=== PATIENT | female | born 1970 | race Caucasian/White ===

== ENCOUNTER 2016-06-07 11:59 | Emergency (ER) | payer MEDICARE, OTHER ==
[~2016-06-07] VITALS: Ht 160 cm; Wt 72.6 kg
[~2016-06-07 11:59] MED LIST: ABCT PO; AC325T PO; ACHD5005 PO; ACHYD1T PO; AGM875T PO; ALBU2.5V52 INH; ALBU8.5H2 IH; ALBUTERAL INHALER; ALPR.5T; ALPR1T PO; ALPR1TAB7 PO; AMIT25TA9 PO; AMIT75TA2; AMOX500C2 PO; AMPI250C11 PO; AMPI500C9 PO; AMT10T PO; ATEN-155 PO; ATEN25TA PO; ATEN50TA PO; AUGMENTIN; AZIT-21 PO; BSP10T PO; BUTA-234 PO; CEFD300C PO; CEFD300C3 PO; CEFU250T PO; CEFU500T5 PO; CEPH-38 PO; CEPH500C PO; CEPH500T PO; CIPR500T4 PO; CLCX200C PO; CLOT15CR6 TOP; CLOT45CR46 TOP; CODE-54 PO; CPR500T PO; CYCL10TA9 PO; CYCL5TAB11 PO; DIVA-20 PO; DOUNEB; DOXY100C2 PO; DOXY100C42 PO; DULO60CA6 PO; DUONEB INH; DVL500TEC PO; DXCC100C PO; ESTR1TAB; ESTR1TAB66; ESZO3TAB30 PO; Elmiron PO; FAMO20TA73 PO; FLC150T PO; FLEXER; FLEXERIL; FLUC150T PO; FLUC200T45 PO; FLUR30CA13 PO; FLUV100T3 PO; FURO20TA4 PO; Flexeril; GABA300C PO; GABA600T2 PO; GABA800T PO; GABA800T2 PO; GBPN300C PO; GUAI400T11 PO; GUAN1TAB21 PO; HYDR-2856 PO; HYDR-2997 PO; HYDR-32; HYDR-3714; HYDR-3720 PO; HYDR-3816 PO; HYDR-757 PO; HYDR1TAB PO; HYDR1TAB8 OP; HYOS0.1216 PO; IBP600T1 PO; IBUP-15 PO; IBUP800T26 PO; LASIX; LASIX PO; LEVE500T6 PO; LEVO500T69; LEVO500T69 PO; LORA-794 PO; LOVA40TA2 PO; LURA40TA PO; MELO-195 PO; METH1TAB; METH1TAB PO; METH4TAB PO; METO50TA7; METR500T PO; MIRA50TA PO; NF-ESOM40C; NF-ESOM40C PO; NF-ROP5T PO; NITR-65 PO; NITR100C3 PO; NORT25CA PO; NYST1000 PO; ONDA-42 SL; ONDA4TAB8 PO; ONDA8TAB13 PO; ORPH100T PO; OXC5T PO; OXYC-12 PO; OXYC-471 PO; PHEN200T16 PO; PHEN200T27; PHEN200T27 PO; PRC25SU PR; PRCD5U PO; PRD20T PO; PRD50T PO; PRED10TA PO; PRED20TA PO; PRM25T PO; PRM50SU PR; PROM25SU10 PR; PROM25TA14 PO; PROP40TA5 PO; QUET100T PO; QUET200T28 PO; QUET50TA21 PO; ROPI3TAB; ROPI5TAB PO; RT-ALBUINH IH; SCOP1PAT TD; SERT50TA9 PO; SULF1TAB35 PO; SULF1TAB38 PO; TAMS0.4C9 PO; TEMA30CA6 PO; TES; TMSL.4C PO; TRAM50TA2 PO; TRAZ150T42; TRAZ150T42 PO; TRAZADONE 150MG; TRZ100T PO; VENL150C PO; VENL75CA PO; WATER PILL; ZLP10T; ZLP10T PO; ZOLP12.5 PO; ZOLP5TAB6 PO; [UNRECOGNIZED DRUG - OTHER]; [UNRECOGNIZED DRUG - OTHER] PO; [UNRECOGNIZED DRUG - OTHER] PO; [UNRECOGNIZED DRUG - REMARK]; [UNRECOGNIZED DRUG - REMARK]; flexeril PO; prilosec otc PO
--- OUTSIDE RECORDS SUMMARY | 2016-06-07 12:05 | XMS REPORT | Continuity of Care Document ---
Author Author [facility] Organization [facility] Address Unknown Phone Unavailable Care Team Providers Care Business Development Officer Name Role Phone Areli Sanchez PCP [phone] Source Comments Some departments are not documenting in the electronic medical record. If you do not see the information that you expected, contact Release of Information in the Health Information Management department at [phone] for further assistance in locating additional records.[facility] Active Allergies and Adverse Reactions Allergen Noted Date Severity Reactions Comments Levaquin 12/09/2010 UNKNOWN Sulfa (Sulfonamide 12/09/2010 UNKNOWN Antibiotics) Current Medications Prescription Sig. Disp. Refills Start End Date Status Date trazodone (DESYREL) 50 mg Take 50 mg by mouth at Active PO tablet bedtime daily. ropinirole (REQUIP) 0.25 Take 0.25 mg by mouth Active mg PO tablet three times daily. gabapentin (NEURONTIN) Take 100 mg by mouth Active 100 mg PO capsule three times daily. CYCLOBENZAPRINE HCL Take by mouth. Active (FLEXERIL PO) albuterol (VENTOLIN HFA, Inhale 2 Puffs by mouth 8.5 g 0 12/10/19 Active PROAIR HFA) 90 every 6 hours as needed 11 mcg/Actuation IN inhaler for Wheezing. Active Problems Not on file Social History Tobacco Use Types Packs/Day Years Used Date Never Smoker Alcohol Use Drinks/Week oz/Week Comments No Last Filed Vital Signs Vital Sign Reading Time Taken Blood Pressure 131/92 12/09/2010 3:58 PM CDT Pulse 131 12/09/2010 11:42 AM CDT Temperature 36.7 C (98.1 F) 12/09/2010 11:42 AM CDT Respiratory Rate - - Height - - Weight - - Body Mass Index - - Oxygen Saturation 92% 12/09/2010 3:58 PM CDT Plan of Care Health Maintenance Due Date Last Done Comments Physical (Comprehensive) 1976 Exam Pertussis Vaccine 1980 Tetanus Vaccine 1986 Cervical Cancer Screening 1990 Breast Cancer Screening 2009 Influenza Vaccine 01/31/2016 Results from Last 3 Months Not on file
[2016-06-07 12:36] LABS: BILIRUBIN,URINE NEGATIVE (NEGATIVE); KETONES,URINE NEGATIVE (NEGATIVE); LEUKOCYTE ESTERASE ,URINE 1+ (NEGATIVE); NITRITE,URINE NEGATIVE (NEGATIVE); PH,URINE 7 (5-9); PROTEIN,URINE NEGATIVE (NEGATIVE); UROBILINOGEN,URINE NORMAL (NORMAL)
--- NOTE | 2016-06-07 12:46 | ED GU-Female ---
General Chief Complaint: -Female Stated Complaint: UTI/BLADDER PAIN Nursing Triage Note: AMB TO ROOM C/O UTI SYMPTOMS FOR LAST 2 WEEKS. HAS BEEN ON ANTIBIOTIC NOT ANY BETTER TO SEE DR HOOK ON THURSDAY. Nursing Sepsis Screen: No Definite Risk Source: patient Exam Limitations: no limitations History of Present Illness Time seen by provider: 12:46 Initial Comments 46-year-old female patient presents to the emergency department with complaints of suprapubic abdominal pain for approximately 2 weeks. Patient states she was on Keflex followed by Bactrim without improvement in symptoms. Patient is scheduled to see Dr. Hook on Thursday for recheck. Timing/Duration: other (2 wks) Severity/Quality: aching Location: suprapubic Radiation: none Activities at Onset: none Prior Genitourinary Problems: similar symptoms Modifying Factors: Worsens With Palpation, Worsens With Urinating Allergies and Home Medications Allergies Coded Allergies: Nitrofurantoin Macrocrystal (Unverified Allergy, Unknown, 09/25/13) Sulfa (Sulfonamide Antibiotics) (Unverified Allergy, Unknown, 09/25/13) hydrocodone (Verified Allergy, Unknown, itching, 10/26/14) ketorolac tromethamine (Verified Allergy, Unknown, 05/04/11) levofloxacin (Unverified Allergy, Unknown, 09/25/13) GIVES HER THRUSH nitrofurantoin (Verified Allergy, Unknown, 10/26/10) MAKES HER STOMACH HURT ondansetron (Verified Allergy, Unknown, 10/13/15) cephalexin (Unverified Adverse Reaction, Mild, NAUSEA, 11/07/14) Home Medications #20 10 BID Prescribed by: ROBI MAGAÑA on 01/03/16 1302 Albuterol Sulfate 2.5 Mg/3 Ml Nebu #20 2.5 MG INH Q4H Prescribed by: ANGEL DOBSON on 09/15/14 1923 Albuterol Sulfate 1 Puff Puff 1 PUFF IH Q4H PRN PRN WHEEZING (Reported) MDI Alprazolam 1 Mg Tablet 2 MG PO HS (Reported) take 2 (1mg) tabs Amitriptyline Hcl 10 Mg Tab 10 MG PO PRN PRN PRN INCONTINENCE (Reported) Ampicillin Trihydrate 500 Mg Capsule #30 500 MG PO TID FOR INFECTION Prescribed by: ZOFIA MORA on 02/09/15 1014 Cephalexin 500 Mg Capsule #21 500 MG PO TID Prescribed by: MAYRA LEE on 06/07/16 1401 Ciprofloxacin HCl 500 Mg Tablet #13 500 MG PO BID Prescribed by: ZABRINA WOLF on 12/07/15 0045 Doxycycline Monohydrate 100 Mg Capsule #20 100 MG PO BID Prescribed by: ZOFIA MORA on 09/12/152002 Gabapentin 800 Mg Tablet 1,200 MG PO TID (Reported) TAKES TO PREVENT SEIZURES Methylprednisolone 4 Mg Tab.ds.pk #1 4 MG PO UD Prescribed by: ZOFIA MORA on 02/09/15 1014 Ondansetron 4 Mg Tab.rapdis #10 4 MG PO Q4H Prescribed by: ZOFIA MORA on 02/09/15 1014 Orphenadrine Citrate 100 Mg Tablet.er #14 100 MG PO BID FOR MUSCLE SPASMS Prescribed by: ZOFIA MORA on 02/09/15 1014 Orphenadrine Citrate 100 Mg Tablet.er #10 100 MG PO BID Prescribed by: ZOFIA MORA on 09/12/152002 Oxycodone HCl/Acetaminophen 1 Each Tablet #10 1 EACH PO Q6H PRN PRN PAIN Prescribed by: LAURA FINCH on 04/09/15 1801 Phenazopyridine HCl 200 Mg Tablet #30 1 TAB PO Q6H PRN PRN PAIN Prescribed by: MAYRA LEE on 06/07/16 1401 Promethazine HCl 25 Mg Tablet #10 25 MG PO Q6H PRN PRN NAUSEA/VOMITING Prescribed by: LAURA FINCH on 10/22/15 1511 Promethazine HCl 25 Mg Tablet #14 25 MG PO Q8H PRN PRN NAUSEA/VOMITING Prescribed by: ZABRINA WOLF on 12/07/15 0039 Promethazine HCl 25 Mg Tablet #10 25 MG PO Q6H PRN PRN NAUSEA/VOMITING Prescribed by: MAYRA LEE on 06/07/16 1401 Quetiapine Fumarate 50 Mg Tablet 150 MG PO HS (Reported) Tramadol HCl 50 Mg Tablet #20 50 MG PO 4 times a day Prescribed by: ROBI MAGAÑA on 01/03/16 1302 Trazodone Hcl 100 Mg Tablet 150 MG PO HS (Reported) Constitutional: No chills, No dizziness, No fever, No malaise, No weakness Respiratory: no symptoms reported Cardiovascular: no symptoms reported Gastrointestinal: see HPI abdominal pain (suprapubic)No constipation, No diarrhea, No jaundice, No melena, nauseaNo vomiting Genitourinary: see HPI dysuriadenies frequency, denies flank pain, denies hematuria, pain (suprapubic abdominal pain) Musculoskeletal: No back pain Skin: no symptoms reported Psychiatric/Neurological: No Symptoms Reported All Other Systemes Reviewed Negative Unless Noted: Yes (Negative excepted noted.) Past Plonhom-Bzeaiq-Mxluqd Hx Patient Social History Recent Foreign Travel: No Contact w/Someone Who Travel: No Recent Infectious Disease Expo: No Recent Hopitalizations: No Immunizations Up To Date Date of Pneumonia Vaccine: Mar 01, 2013 Date of Influenza Vaccine: Feb 16, 2014 Seasonal Allergies Seasonal Allergies: No Surgeries HX Surgeries: Yes Surgeries: Appendectomy, Gallbladder, Hysterectomy, Tubal Ligation Respiratory Hx Respiratory Disorders: Yes Respiratory Disorders: Asthma Cardiovascular Hx Cardiac Disorders: No Cardiac Disorders: Hypertension Neurological Hx Neurological Disorders: No Neurological Disorders: Headaches /Migraines, Seizure Disorder Reproductive System Hx Reproductive Disorders: No Sexually Transmitted Disease: No HIV/AIDS: No 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 Problems, Ovarian Cyst 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 Genitourinary Hx Genitourinary Disorders: No Genitourinary Disorders: Bladder Infection, Kidney Stones, Renal Failure, UTI- Chronic Gastrointestinal Hx Gastrointestinal Disorders: No Gastrointestinal Disorders: Gastroesophageal Reflux, Pancreatitis, Chronic Diarrhea, Hiatal Hernia Musculoskeletal Hx Musculoskeletal Disorders: No Musculoskeletal Disorders: Fibromyalgia, Chronic Back Pain Endocrine Hx Endocrine Disorders: No HEENT HX ENT Disorders: No Cancer Hx Cancer: No Cancer: Vaginal Psychosocial Hx Psychiatric Problems: No Behavioral Health Disorders: Anxiety, Depression Integumentary HX Skin/Integumentary Disorder: No Blood Transfusions Hx Blood Disorders: No Adverse Reaction to a Blood Tr: No Reviewed Nursing Assessment Reviewed/Agree w Nursing PMH: Yes Family Medical History Significant Family History: No Pertinent Family Hx Family Medial History: Dementia 19 FATHER Family history: Cardiovascular disease 19 FATHER Family history: Diabetes mellitus G8 SISTER Family history: Hypertension 19 FATHER 19 MOTHER History of - respiratory disease 19 MOTHER Seizure disorder G8 SISTER No Family History of: Abdominal aortic aneurysm [place]'s disease Alcoholism Aphasia Cancer Cancer of colon Cataract Chest pain Congenital heart disease Congestive heart failure Cystic fibrosis Family history: Osteoporosis Family history: Thyroid disorder Headache Hearing loss Heart disease Hereditary disease History of - anemia History of - disorder History of drug abuse Human immunodeficiency virus (HIV) seropositivity Hypercholesterolemia Infertile Kidney disease Malignant neoplasm of lung Myocardial infarction Parkinson's disease Prostate cancer Psychotic disorder Stroke Tuberculosis Visual impairment Physical Exam Vital Signs Vital Sign - Last 12Hours 06/07/16 12:33 Temp 98.7 Pulse 96 Resp 18 B/P 112/78 Pulse Ox 98 O2 Delivery Room Air Capillary Refill : Less Than 3 Seconds General Appearance: WD/WN no apparent distress HEENT: PERRL/EOMI pharynx normal Neck: supple normal inspection Cardiovascular: regular rate, rhythm no murmur Respiratory: lungs clear normal breath sounds no respiratory distress Gastrointestinal: normal bowel sounds soft no organomegalyNo distended, guarding (mild suprapubic guarding)No rebound, tenderness (suprapubic) Back: normal inspection no CVA tenderness Extremities: no pedal edema no calf tenderness normal capillary refill Neurologic/Psychiatric: alert normal mood/affect oriented x 3 Skin: normal color warm/dry Progress/Results/Core Measures Results/Orders Lab Results Laboratory Tests Test 06/07/16 12:32 06/07/16 13:20 Range/Units Urine Bacteria NEGATIVE /HPF Urine Bilirubin NEGATIVE NEGATIVE Urine Casts NONE /LPF Urine Clarity SLIGHTLY CLOUDY Urine Color YELLOW Urine Crystals NONE /LPF Urine Culture Indicated NO Urine Glucose (UA) NEGATIVE NEGATIVE Urine Ketones NEGATIVE NEGATIVE Urine Leukocyte Esterase 1+ H NEGATIVE Urine Mucus NEGATIVE /LPF Urine Nitrite NEGATIVE NEGATIVE Urine Protein NEGATIVE NEGATIVE Urine RBC 10-25 H /HPF Urine RBC (Auto) 3+ H NEGATIVE Urine Specific [place] 1.010 L 1.016-1.022 Urine Squamous Epithelial Cells 2-5 /HPF Urine Urobilinogen NORMAL NORMAL MG/DL Urine WBC RARE /HPF Urine pH 7 5-9 Alanine Aminotransferase (ALT/SGPT) 38 0-55 U/L Albumin 4.1 3.2-4.5 G/DL Alkaline Phosphatase 77 40-136 U/L Anion Gap 13 5-14 MMOL/L Aspartate Amino Transf (AST/SGOT) 25 5-34 U/L BUN/Creatinine Ratio 11 Basophils # (Auto) 0.0 0.0-0.1 10^3/uL Basophils (%) (Auto) 0 0-10 % Blood Urea Nitrogen 9 7-18 MG/DL Calcium Level 9.1 8.5-10.1 MG/DL Carbon Dioxide Level 20 L 21-32 MMOL/L Chloride Level 106 98-107 MMOL/L Creatinine 0.82 0.60-1.30 MG/DL Eosinophils # (Auto) 0.1 0.0-0.3 10^3/uL Eosinophils (%) (Auto) 2 0-10 % Estimat Glomerular Filtration Rate > 60 Glucose Level 108 H 70-105 MG/DL Hematocrit 40 35-52 % Hemoglobin 13.4 11.5-16.0 G/DL Lymphocytes # (Auto) 1.4 1.0-4.0 X 10^3 Lymphocytes (%) (Auto) 31 12-44 % Mean Corpuscular Hemoglobin 28 25-34 PG Mean Corpuscular Hemoglobin Concent 33 32-36 G/DL Mean Corpuscular Volume 83 80-99 FL Mean Platelet Volume 10.8 H 7.4-10.4 FL Monocytes # (Auto) 0.4 0.0-1.0 X 10^3 Monocytes (%) (Auto) 8 0-12 % Neutrophils # (Auto) 2.7 1.8-7.8 X 10^3 Neutrophils (%) (Auto) 58 42-75 % Platelet Count 190 130-400 10^3/uL Potassium Level 3.7 3.6-5.0 MMOL/L Red Blood Count 4.85 4.35-5.85 10^6/uL Red Cell Distribution Width 12.6 10.0-14.5 % Sodium Level 139 135-145 MMOL/L Total Bilirubin 0.3 0.1-1.0 MG/DL Total Protein 6.7 6.4-8.2 G/DL White Blood Count 4.7 4.3-11.0 10^3/uL My Orders Orders-MAYRA LEE Ua Culture If Indicated (06/07/16 12:30) Cbc With Automated Diff (06/07/16 12:55) Comprehensive Metabolic Panel (06/07/16 12:55) Ct Abd/Pelvis Wo(Kidney Stone) (06/07/16 12:55) Abdomen/Kub 1view (06/07/16 12:55) Tramadol Tablet (Ultram Tablet) (06/07/16 13:00) Promethazine Tablet (Phenergan Tablet) (06/07/16 13:00) Phenazopyridine Tablet (Pyridium Tablet) (06/07/16 13:00) Oxycodone/Apap 5/325mg Tablet (Percocet (06/07/16 14:19) Medications Given in ED Current Medications Medications Dose Ordered Sig/Tk Route Start Time Stop Time Status Last Admin Dose Admin Phenazopyridine HCl 100 mg ONCE ONCE PO 06/07/16 13:00 06/07/16 13:01 DC 06/07/16 13:13 100 MG Promethazine HCl 25 mg ONCE ONCE PO 06/07/16 13:00 06/07/16 13:01 DC 06/07/16 13:20 25 MG Tramadol HCl 100 mg ONCE ONCE PO 06/07/16 13:00 06/07/16 13:01 DC 06/07/16 13:13 100 MG Vital Signs/I&O Vital Sign - Last 12Hours 06/07/16 12:33 Temp 98.7 Pulse 96 Resp 18 B/P 112/78 Pulse Ox 98 O2 Delivery Room Air Blood Pressure Mean: 89 Diagnostic Imaging Diagonstic Imaging: Xray Plain Films/CT/US/NM/MRI: abdomen Comments FINDINGS: Multiple densities over the renal silhouettes compatible with bilateral renal stones. Calcification demonstrated in the distal right ureter on accompanying renal colic CT imaging cannot be well appreciated on radiographs. Extensive surgical clips within the left hemipelvis. Mild severity fecal retention. IMPRESSION: 1. Bilateral renal stones are present. A demonstrated distal right ureteral stone on renal colic CT imaging cannot be well appreciated on this radiograph. Dictated on workstation # [id number] Reviewed: Reviewed by Me (radiology report reviewed by me) Diagonstic Imaging: CT Plain Films/CT/US/NM/MRI: abdomen, pelvis Comments FINDINGS: LOWER THORAX: Continued. Likely scarring about the left lower lobe posteriorly and laterally. No significant basilar infiltrate. EG junction unremarkable. Trace pericardial effusion versus pericardial thickening. LIVER: Unenhanced liver unremarkable without definitive focal lesion. GALLBLADDER: Surgically absent with clips in the fossa. No suggestion for bile duct dilatation. SPLEEN: Unremarkable. PANCREAS: Unremarkable. ADRENAL GLANDS: Unremarkable. KIDNEYS: There is presence of multiple bilateral renal stones. On the left, overall relatively stable in position and number. On the right, there has been redistribution and location of some of the stones. Additionally, the distal right ureteral stone has passed. No significant perinephric stranding. No obstructive uropathy. ABDOMINAL AORTA: Unremarkable, nonaneurysmal. GASTROINTESTINAL TRACT: Mild/moderate severity fecal retention. No evidence for obstruction or inflammation. No findings to suggest acute appendicitis. A few shotty subcentimeter mesenteric and right lower quadrant lymph nodes present. No abdominal ascites or free air. URINARY BLADDER: Unremarkable. No findings to suggest calcification. REPRODUCTIVE: Uterus absent. OSSEOUS STRUCTURES: No acute abnormality. IMPRESSION: 1. Bilateral nonobstructing renal stones. On the right, there has been change in the overall number and distribution and location of the stones. The previously noted distal right ureteral stone appears to have passed. No evidence for obstructive uropathy on followup. Reviewed: Reviewed by Me (radiology report reviewed by me) Departure Communication Progress Notes Laboratory and diagnostic findings discussed with the patient. Patient states she is not allergic to hydrocodone. She takes hydrocodone on a regular basis as prescribed by Dr. Fer Yan for chronic pain. Plan for discharge to home with follow-up on Thursday as previously scheduled with Dr. Hook. All return precautions were discussed with the patient. Patient voices understanding and agrees with the treatment plan. Impression Impression: Primary Impression: Kidney stones Disposition: , SELF-CARE Condition: Improved Departure-Patient Inst. Decision time for Depature: 14:12 Referrals: SABIHA MAST MD (PCP/Family) Primary Care Physician MARISA HOOK MD Patient Instructions: Kidney Stones (DC) Add. Discharge Instructions: All discharge instructions reviewed with patient and/or family. Voiced understanding. Medications as instructed. Continue hydrocodone at home. You may increase hydrocodone 5/325 mg to 1-2 tablets by mouth every 4-6 hours as needed for pain. Contact your pain specialist to notify him of increase in medication due to kidney stone. Strain all urines. Follow-up with Dr. Hook Thursday as previously scheduled. Return to the emergency department for worsened pain, inability urinate, fever, gross blood in the urine, or any other concerns. Scripts Cephalexin 500 Mg [id number] Mg PO TID #21 CAP Ref 0 Prov:MAYRA LEE 06/07/16 Promethazine HCl (Promethazine Tablet)25 Mg Phfnug10 Mg PO Q6H PRN NAUSEA/ VOMITING #10 TAB Ref 0 Prov:MAYRA LEE 06/07/16 Phenazopyridine HCl (Pyridium)200 Mg Tablet1 Tab PO Q6H PRN PAIN #30 TAB Ref 0 Prov:MAYRA LEE 06/07/16 MAYRA LEE Jun 07, 2016 12:46
[2016-06-07 12:47] LABS: WBC,URINE RARE /HPF
[2016-06-07] MEDS ORDERED: PROMETHAZINE 25 MG (PHENERGAN) TAB PO ONE (13:00)
[2016-06-07] MEDS ORDERED: PHENAZOPYRIDINE 100 MG (PYRIDIUM) TABLET PO ONE (13:00)
[2016-06-07 13:28] LABS: BASOPHILS % (AUTO) 0 % (0-10); EOSINOPHILS # (AUTO) 0.1 10^3/uL (0.0-0.3); EOSINOPHILS % (AUTO) 2 % (0-10); LYMPHOCYTES # (AUTO) 1.4 X 10^3 (1.0-4.0); LYMPHOCYTES % (AUTO) 31 % (12-44); MEAN CORPUSCULAR HEMOGLOBIN 28 PG (25-34); MEAN CORPUSCULAR HGB CONC 33 G/DL (32-36); MEAN CORPUSCULAR VOLUME 83 FL (80-99); MEAN PLATELET VOLUME 10.8 FL (7.4-10.4); MONOCYTES # (AUTO) 0.4 X 10^3 (0.0-1.0); MONOCYTES % (AUTO) 8 % (0-12); NEUTROPHILS # (AUTO) 2.7 X 10^3 (1.8-7.8); NEUTROPHILS % (AUTO) 58 % (42-75); PLATELET COUNT 190 10^3/uL (130-400); RED BLOOD COUNT 4.85 10^6/uL (4.35-5.85); RED CELL DISTRIBUTION WIDTH 12.6 % (10.0-14.5); WHITE BLOOD COUNT 4.7 10^3/uL (4.3-11.0)
[2016-06-07 13:48] LABS: ALANINE AMINOTRANSFERASE 38 U/L (0-55); ALBUMIN 4.1 G/DL (3.2-4.5); ANION GAP 13 MMOL/L (5-14); ASPARTATE AMINO TRANSFERASE 25 U/L (5-34); BILIRUBIN,TOTAL 0.3 MG/DL (0.1-1.0); BLOOD UREA NITROGEN 9 MG/DL (7-18); BUN/CREATININE RATIO 11; CALCIUM 9.1 MG/DL (8.5-10.1); CARBON DIOXIDE 20 MMOL/L (21-32); CHLORIDE 106 MMOL/L (98-107); CREATININE SERUM 0.82 MG/DL (0.60-1.30); GFR ESTIMATED > 60; GLUCOSE 108 MG/DL (70-105); POTASSIUM 3.7 MMOL/L (3.6-5.0); SODIUM 139 MMOL/L (135-145); TOTAL PROTEIN 6.7 G/DL (6.4-8.2)
--- NOTE | 2016-06-07 13:54 | Diagnostic Imaging Report ---
INDICATION: Bladder pain. TECHNIQUE: Single supine view abdomen 1:54 p.m. CORRELATION STUDY: None FINDINGS: Multiple densities over the renal silhouettes compatible with bilateral renal stones. The previously demonstrated calcifications in the distal right ureter on prior renal colic CT imaging of 12/06/2015. Not currently demonstrated. Extensive surgical clips within the left hemipelvis. Mild severity fecal retention. IMPRESSION: 1. Bilateral renal stones are present. Dictated by: Dictated on workstation # [id number]
--- NOTE | 2016-06-07 14:00 | Diagnostic Imaging Report ---
PROCEDURE: CT urinary tract, rule out kidney stone. TECHNIQUE: Multiple contiguous axial images were obtained through the abdomen and pelvis without the use of intravenous contrast. INDICATION: Bladder pain with hematuria. CORRELATION STUDY: 12/06/2015 FINDINGS: LOWER THORAX: Continued. Likely scarring about the left lower lobe posteriorly and laterally. No significant basilar infiltrate. EG junction unremarkable. Trace pericardial effusion versus pericardial thickening. LIVER: Unenhanced liver unremarkable without definitive focal lesion. GALLBLADDER: Surgically absent with clips in the fossa. No suggestion for bile duct dilatation. SPLEEN: Unremarkable. PANCREAS: Unremarkable. ADRENAL GLANDS: Unremarkable. KIDNEYS: There is presence of multiple bilateral renal stones. On the left, overall relatively stable in position and number. On the right, there has been redistribution and location of some of the stones. Additionally, the distal right ureteral stone has passed. No significant perinephric stranding. No obstructive uropathy. ABDOMINAL AORTA: Unremarkable, nonaneurysmal. GASTROINTESTINAL TRACT: Mild/moderate severity fecal retention. No evidence for obstruction or inflammation. No findings to suggest acute appendicitis. A few shotty subcentimeter mesenteric and right lower quadrant lymph nodes present. No abdominal ascites or free air. URINARY BLADDER: Unremarkable. No findings to suggest calcification. REPRODUCTIVE: Uterus absent. OSSEOUS STRUCTURES: No acute abnormality. IMPRESSION: 1. Bilateral nonobstructing renal stones. On the right, there has been change in the overall number and distribution and location of the stones. The previously noted distal right ureteral stone appears to have passed. No evidence for obstructive uropathy on followup. Dictated by: Dictated on workstation # [id number]
[2016-06-07] MEDS ORDERED: PROM25TA14 PO (14:01)
[2016-06-07] MEDS ORDERED: PHEN-640 PO (14:01)
[2016-06-07] MEDS ORDERED: CEPH500C PO (14:01)
[2016-06-07] MEDS ORDERED: oxyCODONE/APAP 5/325MG (PERCOCET 5) TABLET PO STA (14:19)
[2016-06-07 14:25] VITALS: BP 143/93
== END 2016-06-07 14:25 | disposition home or self-care (01) ==
LOC: EDUNIT# 11:59 → ER 12:01
DX: N20.0 Calculus of kidney (principal); I10 Essential (primary) hypertension; Z79.899 Other long term (current) drug therapy
CPT/HCPCS: 36415; 74000; 74176; 80053; 81000; 85025

== ENCOUNTER 2016-06-10 09:26 | Outpatient (CLI) | payer MEDICARE ==
[~2016-06-10] VITALS: Ht 156.2 cm; Wt 72.6 kg
[~2016-06-10 09:26] MED LIST changes: +PHEN-640 PO
--- OUTSIDE RECORDS SUMMARY | 2016-06-10 09:30 | XMS REPORT | Continuity of Care Document ---
Author Author [facility] Organization [facility] Address Unknown Phone Unavailable Care Team Providers Care Restaurant General Manager Name Role Phone Areli Sanchez PCP [phone] Source Comments Some departments are not documenting in the electronic medical record. If you do not see the information that you expected, contact Release of Information in the Health Information Management department at [phone] for further assistance in locating additional records.[facility] Active Allergies and Adverse Reactions Allergen Noted [...]
[2016-06-10] MEDS ORDERED: QUET200T57 PO (09:56)
[2016-06-10] MEDS ORDERED: TRAZ150T72 PO (09:56)
[2016-06-11] MEDS ORDERED: HYDR-3812 PO (06:59)
[2016-06-11] MEDS ORDERED: NITR-65 PO (08:06)
== END 2016-06-10 11:57 ==
LOC: PREOP 09:26
PROVIDERS: ATTEND Urology
DX: Z01.818 Encounter for other preprocedural examination (principal); N30.10 Interstitial cystitis (chronic) without hematuria

== ENCOUNTER 2016-06-11 05:57 | Day surgery (SDC) | payer MEDICARE, OTHER ==
[~2016-06-11] VITALS: Ht 156.2 cm; Wt 72.6 kg
[~2016-06-11 05:57] MED LIST changes: +QUET200T57 PO; +TRAZ150T72 PO
--- OUTSIDE RECORDS SUMMARY | 2016-06-11 06:03 | XMS REPORT | Continuity of Care Document ---
Author Author [facility] Organization [facility] Address Unknown Phone Unavailable Care Team Providers Care Cupola Melter Helper Name Role Phone Areli Sanchez PCP [phone] Source Comments Some departments are not documenting in the electronic medical record. If you do not see the information that you expected, contact Release of Information in the Health Information Management department at [phone] for further assistance in locating additional records.[facility] Active Allergies and Adverse Reactions Allergen Noted [...]
--- OUTSIDE RECORDS SUMMARY | 2016-06-11 06:04 | XMS REPORT | Continuity of Care Document ---
Author Author [facility] Organization [facility] Address Unknown Phone Unavailable Care Team Providers Care Spudder Name Role Phone Areli Sanchez PCP [phone] Source Comments Some departments are not documenting in the electronic medical record. If you do not see the information that you expected, contact Release of Information in the Health Information Management department at [phone] for further assistance in locating additional records.[facility] Active Allergies and Adverse Reactions Allergen Noted [...]
[2016-06-11] MEDS ORDERED: NORMAL SALINE (BAXTER MINI) 50 ML IV ONE (06:06)
[2016-06-11] MEDS ORDERED: cefTRIAXone 1 GM (ROCEPHIN) VIAL ONE (06:06)
[2016-06-11 06:25] VITALS: BP 147/91
[2016-06-11] MEDS: LACTATED RINGERS 1,000 ML IV PRN ×2 (06:25→07:49)
[2016-06-11] MEDS ORDERED: RT-ALBUTEROL SULF 2.5 MG/3 ML PRE-MIX VIAL INH ONE (06:45)
[2016-06-11] MEDS ORDERED: FAMOTIDINE 20MG/2ML IV (PEPCID) IV ONE (06:45)
[2016-06-11] MEDS ORDERED: SCOPOLAMINE 1.5 MG (TRANSDERM-SCOP) PATCH TOP ONE (06:45)
[2016-06-11] MEDS ORDERED: LACTATED RINGERS 1,000 ML IV ONE ×2 (06:54→07:42)
[2016-06-11] MEDS ORDERED: ONDANSETRON 4 MG/2 ML (SDV) Z0FRAN ONE (06:54)
[2016-06-11] MEDS ORDERED: fentaNYL INJECTION 100 MCG/2 ML AMP ONE (06:54)
[2016-06-11] MEDS ORDERED: LIDOCAINE PF 2% 10 ML (XYLOCAINE) AMP ONE (06:54)
[2016-06-11] MEDS ORDERED: proPOfol 200 MG/20 ML (DIPRIVAN) VIAL IV ONE (06:54)
[2016-06-11] MEDS ORDERED: ROCURONIUM 50 MG/5 ML (ZEMURON) VIAL IV ONE (06:54)
[2016-06-11] MEDS ORDERED: LIDOCAINE JELLY 2% (XYLOCAINE) 5 ML TUBE ONE (06:54)
[2016-06-11] MEDS ORDERED: MIDAZOLAM 2 MG/2 ML (VERSED) VIAL ONE (06:54)
[2016-06-11] MEDS ORDERED: HYDR-3812 PO (06:59)
[2016-06-11] MEDS ORDERED: cefTRIAXone 1 GM/NS 50 ML IVPB IV ONE ×2 (07:00)
--- NOTE | 2016-06-11 07:06 | Progress Note-Pre Operative ---
Pre-Operative Progress Note H&P Reviewed The H&P was reviewed, patient examined and no changes noted. Date H&P Reviewed: Jun 11, 2016 Time H&P Reviewed: 07:06 Pre-Operative Diagnosis: Interstitial cystitis and DUS MARISA HOOK MD Jun 11, 2016 7:06 am
--- NOTE | 2016-06-11 07:07 | Progress Note-Post Operative ---
Post-Operative Progess Note Pre-Operative Diagnosis Interstitial cystitis and DUS Post-Operative Diagnosis same Post-Op Procedure Note Date of Procedure: Jun 11, 2016 Name of Procedure: cysto, UD, and hydrodistention bladder Anesthesia Type general MARISA HOOK MD Jun 11, 2016 7:07 am
--- NOTE | 2016-06-11 07:09 | Discharge Inst-Urology ---
Discharge Inst-Urology Discharge Medications New, Converted, or Re-newed RX: RX on Chart Patient Instructions/Follow Up Plan Please make appointment to been seen in office in 4 weeks. Increase oral fluids for 48 hours and then as needed. Diet and Activity as tolerated. If questions or concerns contact your physician Or seek help at emergency department. MARISA HOOK MD Jun 11, 2016 7:09 am
[2016-06-11] MEDS ORDERED: SEVOFLURANE (ULTANE) 15 ML INHAL SOLN ONE (07:30)
[2016-06-11] MEDS ORDERED: MEPERIDINE (DEMEROL) INJ 50 MG/ML IVP PRN (08:00)
[2016-06-11] MEDS ORDERED: NITR-65 PO (08:06)
[2016-06-11] MEDS ORDERED: MEPERIDINE (DEMEROL) INJ 50 MG/ML ONE (08:17)
--- NOTE | 2016-06-11 08:55 | OPERATIVE REPORT ---
PROCEDURE PHYSICIAN: MARISA HOOK DATE OF PROCEDURE: 06/11/2016 PREOPERATIVE DIAGNOSES: 1. Interstitial cystitis. 2. Distal urethral stenosis. POSTOPERATIVE DIAGNOSES: 1. Interstitial cystitis. 2. Distal urethral stenosis. OPERATION PERFORMED: 1. Cystoscopy. 2. Urethral dilatation. 3. Hydrodistention of the bladder, SURGEON: Dr. Hook. ANESTHESIA: General. COMPLICATIONS: None. PROCEDURE: Under satisfactory general anesthesia, the patient in lithotomy position, the genitalia were prepped and draped in usual sterile fashion. Urethra dilated to number 32 [place]. Postvoid residual of 30 mL. There was a mild cystorectocele and no vaginitis. Cystoscopy was performed with both lenses and was essentially completely normal. No clear evidence of interstitial cystitis, carcinoma in situ, bladder tumor, stones or foreign body. Ureteric orifices normal in shape, site and configuration with clear efflux. I went ahead and distended the bladder to 500 mL for several minutes and then emptied it. Reexamined the bladder, there was no bleeding and no cracking. The patient tolerated the procedure and anesthesia well and was sent to recovery room in stable condition. We will see how that helps her; otherwise, we will put her on some medicine. The plan was fully explained to her preoperatively and postoperatively to her . Job ID: [id number] Dictated Date: 06/11/2016 08:04:44 Short Goods Drier Date: 06/11/2016 08:51:56 / savanah
[2016-06-11 09:05] VITALS: BP 125/83
[2016-06-11] MEDS ORDERED: HYDROcodone/APAP 5 MG/325 MG (LORTAB) TAB PO ONE (09:15)
[2016-06-11 09:35] VITALS: BP 128/83
== END 2016-06-11 09:50 | disposition home or self-care (01) ==
LOC: SDC 05:57
PROVIDERS: ATTEND Urology
DX: N30.10 Interstitial cystitis (chronic) without hematuria (principal); N35.9 Urethral stricture, unspecified; Z11.2 Encounter for screening for other bacterial diseases
CPT/HCPCS: 87081; 94640; 94760

== ENCOUNTER 2016-07-14 12:57 | Outpatient (RCR) | payer MEDICARE, OTHER ==
--- OUTSIDE RECORDS SUMMARY | 2016-06-26 13:48 | XMS REPORT | Continuity of Care Document ---
Author Author [facility] Organization [facility] Address Unknown Phone Unavailable Care Team Providers Care Operations Administrative Assistant Name Role Phone Areli Sanchez PCP [phone] Source Comments Some departments are not documenting in the electronic medical record. If you do not see the information that you expected, contact Release of Information in the Health Information Management department at [phone] for further assistance in locating additional records.[facility] [...]
[~2016-07-14 12:57] MED LIST changes: +HYDR-3812 PO
== END 2016-08-06 15:46 | disposition home or self-care (01) ==
PROVIDERS: ATTEND Physician Assistant
DX: M51.24 Other intervertebral disc displacement, thoracic region (principal)

== ENCOUNTER 2017-02-23 12:56 | Emergency (ER) | payer MEDICARE ==
[~2017-02-23] VITALS: Ht 154.9 cm; Wt 68.0 kg
--- OUTSIDE RECORDS SUMMARY | 2017-02-23 13:04 | XMS REPORT ---
Author Author ITZ JUNIOR [employer] Address Unknown Phone Unavailable Care Team Providers Care Arts And Crafts Teacher Name Role Phone ITZ JUNIOR CP Unavailable Allergies No Known Allergies Problems Problem Type Condition Code Onset Dates Condition Status Problem Disturbance of skin sensation 782.0 Active Problem Posttraumatic stress disorder 309.81 Active Problem Need for prophylactic vaccination and inoculation, Influenza V04.81 Active Problem FRANCIS (generalized anxiety disorder) F41.1 Active Problem Thoracic disc herniation 722.11 Active Problem Major depressive disorder in partial remission F32.4 Active Problem Major depressive disorder, recurrent episode, moderate 296.32 Active Problem Generalized anxiety disorder 300.02 Active Problem Other convulsions 780.39 Active Problem Carpal tunnel syndrome 354.0 Active Medications Medication Code System Code Instructions Start Date End Date Status Dosage Trazodone HCl [facility] [address]-23 150 MG Orally Once a bedtime for sleep October 13, 2014 1 tablet Quetiapine Fumarate [facility] [address]-08 200 MG Orally Once a day qHS sleep November 03, 2014 1 tablet Results No Known Results Summary Purpose eClinicalWorks Submission
--- OUTSIDE RECORDS SUMMARY | 2017-02-23 13:04 | XMS REPORT ---
Author Author ITZ JUNIOR Organization [facility] Address [address] [place] [address] Care Team Providers Care Terminal Make Up Operator Name Role Phone ITZ JUNIOR Unavailable PROBLEMS Type Condition ICD9-CM Code [id number] Code Onset Dates Condition Status SNOMED Code Problem Major depressive disorder in partial remission F32.4 Active 54093581 Problem FRANCIS (generalized anxiety disorder) F41.1 Active 23042331 Problem Constipation, unspecified constipation type K59.00 Active 85343812 Problem Slow transit constipation K59.01 Active 39148453 Problem Conversion disorder (or hysterical neurosis, 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 Eating while asleep. lg Non Drug Allergy Jun, Active SOCIAL HISTORY No smoking Hx information available PLAN OF CARE Activity Details Follow Up 4 Months Reason: VITAL SIGNS Height 62 in 2016-06-17 Weight 158.1 lbs 2016-06-17 Heart Rate 118 bpm 2016-06-17 Respiratory Rate 20 2016-06-17 BMI 28.91 kg/m2 2016-06-17 Blood pressure systolic 109 mmHg 2016-06-17 Blood pressure diastolic 78 mmHg 2016-06-17 MEDICATIONS Medication Instructions Dosage Frequency Start Date End Date Duration Status Quetiapine Fumarate 200 MG TAKE 1 TABLET ONE TIME DAILY AT BEDTIME FOR SLEEP Active Bactrim 400-80 MG Orally Once a day 2 tablets 24h Active Alprazolam 1MG Orally 2 times a day as needed for anxiety 1 tablet Active Trazodone HCl 150 MG TAKE 1 TABLET ONE TIME AT BEDTIME FOR SLEEP Active Pyridium 200 MG Orally Three times a day 1 tablet after meals 8h Active Gabapentin 800MG Orally Three times a day 1.5 tablet 8h 90 days Active Omeprazole 20 mg take 1 capsule (20 mg) by oral route once daily before a meal Apr, Active ProAir HFA 90 mcg/actuation 2 puffs by Inhalation route 4 times per dayPRN Apr, Active Hydrocodone-Acetaminophen 10-325 MG Orally every 6 hrs 1 tablet as needed 6h Active RESULTS No Results PROCEDURES Procedure Date Ordered Related Diagnosis Body Site Office Visit, Est Pt., Level 3 Jun 17, 2016 IMMUNIZATIONS No Known Immunizations
--- OUTSIDE RECORDS SUMMARY | 2017-02-23 13:04 | XMS REPORT ---
Author Author ASHLEE VELARDE Organization [facility] Address [address] [place] [address] Care Team Providers Care Forensic Engineer Name Role Phone REHANA VELARDENETTE Unavailable PROBLEMS Type Condition ICD9-CM Code [id number] Code Onset Dates Condition Status SNOMED Code Problem FRANCIS (generalized anxiety disorder) F41.1 Active 64763952 Problem Slow transit constipation K59.01 Active 06810530 Problem Paroxysmal tachycardia I47.9 Active 23894624 Problem Thoracic disc herniation M51.24 Active 271167817 Problem Major depressive disorder in partial remission F32.4 Active 44885884 Problem Seizure disorder G40.909 Active 055421421 Problem Conversion disorder (or hysterical neurosis, 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 Eating while asleep. lg Non Drug Allergy Apr, Active SOCIAL HISTORY No smoking Hx information available PLAN OF CARE Activity Details Follow Up 2 Weeks Reason:uti VITAL SIGNS Height 62 in 2016-04-17 Weight 155 lbs 2016-04-17 Temperature 97.9 degrees Fahrenheit 2016-04-17 Heart Rate 78 bpm 2016-04-17 Respiratory Rate 20 2016-04-17 BMI 28.35 kg/m2 2016-04-17 Blood pressure systolic 130 mmHg 2016-04-17 Blood pressure diastolic 82 mmHg 2016-04-17 MEDICATIONS Medication Instructions Dosage Frequency Start Date End Date Duration Status Gabapentin 800 MG Orally Three times a day take 1.5 tablet 8h Jul, Active Omeprazole 20 mg take 1 capsule (20 mg) by oral route once daily before a meal Apr, Active ProAir HFA 90 mcg/actuation 2 puffs by Inhalation route 4 times per dayPRN Apr, Active Hydrocodone-Acetaminophen 10-325 MG Orally every 6 hrs 1 tablet as needed 6h Active Zofran ODT 4 mg Orally q4 h prn nausea 1 Mar, Active Cipro 500 MG Orally Twice a day 1 tablet 12h Apr, Apr, 10 day(s) Active Quetiapine Fumarate 200 mg TAKE 1 TABLET ONE TIME DAILY AT BEDTIME FOR SLEEP Active Alprazolam 1MG Orally 2 times a day as needed for anxiety 1 tablet Active Trazodone HCl 150 MG TAKE 1 TABLET ONE TIME AT BEDTIME FOR SLEEP Active RESULTS Name Result Date Reference Range UA W/CULTURE IF INDICATED (IN HOUSE) 2016-04-17 Lot # [id number] Exp date 07/2016 Clarity cloudy Color dark yellow Odor yes GLU negative YOLI negative KET negative SG 1.025 BLO 3+ pH 6.0 Protein 1+ URO 0.2 NIT negative ROSENDA 1+ Lot # Exp date CULTURE, URINE 2016-04-17 Urine Culture, Routine Final report Result 1 PROCEDURES Procedure Date Ordered Related Diagnosis Body Site URINALYSIS, AUTO, W/O SCOPE Apr 17, 2016 Office Visit, Est Pt., Level 3 Apr 17, 2016 LAB NOT BILLED BY [facility] Apr 17, 2016 IMMUNIZATIONS No Known Immunizations
--- OUTSIDE RECORDS SUMMARY | 2017-02-23 13:04 | XMS REPORT | Clinical Summary ---
Author Author [facility] Organization [facility] Address Unknown Phone Unavailable Care Team Providers Care General Warehouse Worker Name Role Phone PCP Unavailable Source Comments Some departments are not documenting in the electronic medical record. If you do not see the information that you expected, contact Release of Information in the Health Information Management department at [phone] for further assistance in locating additional records.[facility] Allergies Active Allergy Reactions Severity Noted Date Comments Levofloxacin UNKNOWN 12/09/2010 Sulfa (Sulfonamide UNKNOWN 12/09/2010 Antibiotics) Current Medications Prescription Sig. Disp. Refills [...] Smoker Alcohol Use Drinks/Week oz/Week Comments No Sex Assigned at Date Recorded Not on file Last Filed Vital Signs Vital Sign Reading Time Taken Blood Pressure 131/92 12/09/2010 3:58 PM CDT Pulse 131 12/09/2010 11:42 AM CDT Temperature 36.7 C (98.1 F) 12/09/2010 11:42 AM CDT Respiratory Rate - - Oxygen Saturation 92% 12/09/2010 3:58 PM CDT Inhaled Oxygen - - Concentration Weight - - Height - - Body Mass Index - - Plan of Treatment Health Maintenance Due Date Last Done Comments PHYSICAL (COMPREHENSIVE) 1976 EXAM PERTUSSIS VACCINE 1980 TETANUS VACCINE 1986 CERVICAL CANCER SCREENING 1999 BREAST CANCER SCREENING 2009 INFLUENZA VACCINE 03/01/2017 Results Not on filefrom Last 3 Months
--- OUTSIDE RECORDS SUMMARY | 2017-02-23 13:09 | XMS REPORT ---
Author ITZ Jain [employer] Address Unknown Phone Unavailable Care Team Providers Care Toys And Games Hand Finisher Name Role Phone ITZ JUNIOR CP Unavailable Allergies No Known Allergies Problems Problem Type Condition ICD-9 Code Onset Dates Condition Status Problem Disturbance of skin sensation 782.0 Active Problem Unspecified disorder of menstruation and other abnormal bleeding from female genital tract 626.9 Active Problem Need for prophylactic vaccination and inoculation, Influenza V04.81 Active Problem PPV23 (PNEUMOVAX) DX V03.82 Active Problem Posttraumatic stress disorder 309.81 Active Problem Acute bronchitis 466.0 Active Problem Achilles bursitis or tendinitis 726.71 Active Problem Acute pancreatitis 577.0 Active Problem Allergic rhinitis, cause unspecified 477.9 Active Problem Unspecified sleep apnea 780.57 Active Problem Dysuria 788.1 Active Problem Tension headache 307.81 Active Problem Urinary tract infection, site not specified 599.0 Active Problem Routine gynecological examination V72.31 Active Problem Lump or mass in breast 611.72 Active Problem Mastodynia 611.71 Active Problem Other convulsions 780.39 Active Problem Memory loss 780.93 Active Problem 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 Problem Major depressive disorder, recurrent episode, moderate 296.32 Active Problem Unspecified symptom associated with female genital organs 625.9 Active Problem Generalized anxiety disorder 300.02 Active Problem Unspecified breast screening V76.10 Active Problem Special screening for malignant neoplasms, vagina V76.47 Active Problem Unspecified fall E888.9 Active Problem Special screening examination, human papillomavirus [HPV] V73.81 Active Problem Nausea alone 787.02 Active Problem Other specified symptom associated with female genital organs 625.8 Active Problem Headache 784.0 Active Problem Unspecified abnormal mammogram 793.80 Active Problem Other abnormal Papanicolaou smear of vagina and vaginal HPV 795.19 Active Problem Encounter for long-term (current) use of other medications V58.69 Active Problem Carpal tunnel syndrome 354.0 Active Problem Acute sinusitis, unspecified 461.9 Active Problem Unspecified backache 724.5 Active Medications No Known Medications Results No Known Results Summary Purpose eClinicalWorks Submission
--- OUTSIDE RECORDS SUMMARY | 2017-02-23 13:09 | XMS REPORT ---
Author ITZ Jain [employer] Address Unknown Phone Unavailable Care Team Providers Care Split Leather Mosser Name Role Phone ITZ JUNIOR CP Unavailable Allergies, Adverse Reactions, Alerts Substance Reaction Event Type Macrobid hives Drug Allergy Levaquin hives Drug Allergy Tramadol Info Not Available Drug Allergy Ambien 10 Mg Tablet Sleep Walking and Sleep Driving. Eating while asleep. lg Non Drug Allergy Problems Problem Type Condition Code Onset Dates Condition Status Problem Disturbance of skin sensation 782.0 Active Problem Posttraumatic stress disorder 309.81 Active Problem Need for prophylactic vaccination and inoculation, Influenza V04.81 Active Assessment FRANCIS (generalized anxiety disorder) F41.1 Active Assessment Major depressive disorder in partial remission F32.4 Active Problem FRANCIS (generalized anxiety disorder) F41.1 Active Problem Thoracic disc herniation 722.11 Active Problem Major depressive disorder in partial remission F32.4 Active Problem Major depressive disorder, recurrent episode, moderate 296.32 Active Problem Generalized anxiety disorder 300.02 Active Problem Other convulsions 780.39 Active Problem Carpal tunnel syndrome 354.0 Active Medications Medication Code System Code Instructions Start Date End Date Status Dosage Alprazolam [facility] 41121799899 1MG Orally 2 times a day as needed for anxiety 1 tablet Zofran ODT [facility] [address]-42 4 mg Mar 24, 2014 take 1 tablets by Oral route every 4 hours PRN Nausea or Vomiting Promethazine HCl [facility] [address]-27 25 MG Orally every 12 hrs 1 tablet as needed Hydrocodone-Acetaminophen [facility] [address]-11 10-325 MG Orally every 6 hrs 1 tablet as needed Omeprazole [facility] [address]-04 20 mg Apr 18, 2013 take 1 capsule ( 20 mg) by oral route once daily before a meal ProAir HFA [facility] [address]-66 90 mcg/actuation Apr 26, 2012 2 puffs by Inhalation route 4 times per dayPRN Quetiapine Fumarate [facility] [address]-65 200 mg Orally Once a day qHS sleep November 03, 2014 1 tablet Trazodone HCl [facility] [address]-49 150 MG Orally Once a bedtime for sleep October 13, 2014 1 tablet Gabapentin [facility] 35322220168 800MG Orally Three times a day 1.5 tablet Gabapentin [facility] [address]-58 800 MG Orally Three times a day August 15, 2014 take 1.5 tablet Procedures Procedure Coding System Code Date Office Visit, Est Pt., Level 3 CPT-4 02539 December 18, 2015 Vital Signs Date/Time: December 18, 2015 Cardiac Monitoring Heart Rate 112 bpm Weight 162.3 lbs Height 62 in Blood Pressure Diastolic 90 mmHg Blood Pressure Systolic 115 mmHg Results No Known Results Summary Purpose eClinicalWorks Submission
--- OUTSIDE RECORDS SUMMARY | 2017-02-23 13:09 | XMS REPORT ---
Author Author SABIHA MAST Organization [employer] Address Unknown Phone Unavailable Care Team Providers Care State Archivist Name Role Phone SABIHA MAST CP Unavailable Allergies No Known Allergies Problems Problem Type Condition Code Onset Dates Condition Status Problem Thoracic disc herniation M51.24 Active Problem Major depressive disorder in partial remission F32.4 Active Problem Seizure disorder G40.909 Active Problem FRANCIS (generalized anxiety disorder) F41.1 Active Assessment Abnormal mammogram R92.8 Active Medications No Known Medications Results No Known Results Summary Purpose eClinicalWorks Submission
--- OUTSIDE RECORDS SUMMARY | 2017-02-23 13:09 | XMS REPORT ---
Author Author SABIHA MAST [facility] eClinicalWorks Address Unknown Phone Unavailable Care Team Providers Care Stitcher Feeder Name Role Phone SABIHA MAST CP Unavailable Allergies No Known Allergies Problems Problem Type Condition Code Onset Dates Condition Status Problem Disturbance of skin sensation 782.0 Active Problem Posttraumatic stress disorder 309.81 Active Problem Need for prophylactic vaccination and inoculation, Influenza V04.81 Active Assessment Dorsalgia, unspecified M54.9 Active Problem FRANCIS (generalized anxiety disorder) F41.1 Active Problem Thoracic disc herniation 722.11 Active Problem Major depressive disorder in partial remission F32.4 Active Problem Major depressive disorder, recurrent episode, moderate 296.32 Active Problem Generalized anxiety disorder 300.02 Active Problem Other convulsions 780.39 Active Problem Carpal tunnel syndrome 354.0 Active Medications Medication Code System Code Instructions Start Date End Date Status Dosage Gabapentin [facility] 98979926009 800MG Orally Three times a day 1.5 tablet Results No Known Results Summary Purpose eClinicalWorks Submission
--- OUTSIDE RECORDS SUMMARY | 2017-02-23 13:09 | XMS REPORT ---
Author Author SABIHA MAST Organization [employer] Address Unknown Phone Unavailable Care Team Providers Care Housing Coordinator Name Role Phone SABIHA MAST CP Unavailable Allergies No Known Allergies Problems Problem Type Condition Code Onset Dates Condition Status Problem Thoracic disc herniation M51.24 Active Problem Major depressive disorder in partial remission F32.4 Active Problem Seizure disorder G40.909 Active Problem FRANCIS (generalized anxiety disorder) F41.1 Active Medications No Known Medications Results No Known Results Summary Purpose eClinicalWorks Submission
--- OUTSIDE RECORDS SUMMARY | 2017-02-23 13:10 | XMS REPORT ---
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 Eating while asleep. lg Non Drug Allergy Apr, Active SOCIAL HISTORY No smoking Hx information available PLAN OF CARE VITAL SIGNS Height 62 in 2016-04-30 Weight 155.8 lbs 2016-04-30 Heart Rate 84 bpm 2016-04-30 Respiratory Rate 20 2016-04-30 BMI 28.49 kg/m2 2016-04-30 Blood pressure systolic 116 mmHg 2016-04-30 Blood pressure diastolic 70 mmHg 2016-04-30 MEDICATIONS Medication Instructions Dosage Frequency Start Date End Date Duration Status Gabapentin 800MG Orally Three times a day 1.5 tablet 8h 90 days Active Alprazolam 1MG Orally 2 times a day as needed for anxiety 1 tablet Active Hydrocodone-Acetaminophen 10-325 MG Orally every 6 hrs 1 tablet as needed 6h Active Acidophilus 100 MG Orally 2 times a day 1 capsule 12h Apr, May, 07 days Active Quetiapine Fumarate 200 mg TAKE 1 TABLET ONE TIME DAILY AT BEDTIME FOR SLEEP Active Gabapentin 800 MG Orally Three times a day take 1.5 tablet 8h 17 Jul, 2014 Active Promethazine HCl 25 MG Orally every 12 hrs 1 tablet as needed 12h 30 Apr, 2016 May, 05 days Active Trazodone HCl 150 MG TAKE 1 TABLET ONE TIME AT BEDTIME FOR SLEEP Active Omeprazole 20 mg take 1 capsule (20 mg) by oral route once daily before a meal Apr, Active ProAir HFA 90 mcg/actuation 2 puffs by Inhalation route 4 times per dayPRN Apr, Active RESULTS No Results PROCEDURES Procedure Date Ordered Related Diagnosis Body Site Office Visit, Est Pt., Level 3 Apr 30, 2016 IMMUNIZATIONS No Known Immunizations
--- OUTSIDE RECORDS SUMMARY | 2017-02-23 13:10 | XMS REPORT ---
Author ITZ Jain [facility] eClinicalWorks Address Unknown Phone Unavailable Care Team Providers Care Community Recreation Programmer Name Role Phone IZT JUNIOR CP Unavailable Allergies No Known Allergies Problems Problem Type Condition Code Onset Dates Condition Status Problem Major depressive disorder in partial remission F32.4 Active Problem FRANCIS (generalized anxiety disorder) F41.1 Active Problem Thoracic disc herniation M51.24 Active Medications Medication Code System Code Instructions Start Date End Date Status Dosage Alprazolam [facility] [id number] 1MG Orally 2 times a day as needed for anxiety 1 tablet Results No Known Results Summary Purpose eClinicalWorks Submission
--- OUTSIDE RECORDS SUMMARY | 2017-02-23 13:10 | XMS REPORT ---
Author Author ITZ JUNIOR [employer] Address Unknown Phone Unavailable Care Team Providers Care Scooter Mechanic Name Role Phone ITZ JUNIOR CP Unavailable [...] Date End Date Status Dosage Alprazolam [facility] 22002062359 1MG Orally 2 times a day as needed for anxiety 1 tablet Results No Known Results Summary Purpose eClinicalWorks Submission
--- OUTSIDE RECORDS SUMMARY | 2017-02-23 13:10 | XMS REPORT ---
Author ITZ Jain [employer] Address Unknown Phone Unavailable Care Team Providers Care Canopy Inspector Name Role Phone ITZ JUNIOR CP Unavailable [...] Instructions Start Date End Date Status Dosage Omeprazole [facility] [address]-88 20 mg Apr 18, 2013 take 1 capsule ( 20 mg) by oral route once daily before a meal Quetiapine Fumarate [facility] [address]-95 200 MG Orally Once a day qHS sleep November 03, 2014 1 tablet Gabapentin [facility] [address]-68 800 MG Orally Three times a day August 15, 2014 take 1.5 tablet Zofran ODT [facility] [address]-78 4 mg Mar 24, 2014 take 1 tablets by Oral route every 4 hours PRN Nausea or Vomiting ProAir HFA [facility] [address]-47 90 mcg/actuation Apr 26, 2012 2 puffs by Inhalation route 4 times per dayPRN Trazodone HCl [facility] [address]-43 150 MG Orally Once a bedtime for sleep October 13, 2014 1 tablet Alprazolam [facility] 33886536401 1MG Orally 2 times a day as needed for anxiety 1 tablet Hydrocodone-Acetaminophen [facility] [address]-95 5-325 MG Orally 3 times a day Feb 12, 2015 1 tablet as needed Procedures Procedure Coding System Code Date Office Visit, Est Pt., Level 4 CPT-4 45444 Jun 19, 2015 [facility] VISIT ESTABLISHED PATIENT CPT-4 G0467 Jun 19, 2015 Vital Signs Date/Time: Jun 19, 2015 Cardiac Monitoring Heart Rate 96 bpm Weight 158.4 lbs Height 62 in BMI 28.97 Index Blood Pressure Diastolic 72 mmHg Blood Pressure Systolic 90 mmHg Results No Known Results Summary Purpose eClinicalWorks Submission
--- OUTSIDE RECORDS SUMMARY | 2017-02-23 13:11 | XMS REPORT ---
Author ITZ Jain [employer] Address Unknown Phone Unavailable Care Team Providers Care Snath Handle Assembler Name Role Phone ITZ JUNIOR CP Unavailable [...] Active Problem Unspecified backache 724.5 Active Medications Medication Code System Code Instructions Start Date End Date Status Dosage Quetiapine Fumarate [facility] [address]-58 150 mg Orally Once a day qHS sleep November 03, 2014 1 tablet Results No Known Results Summary Purpose eClinicalWorks Submission
--- OUTSIDE RECORDS SUMMARY | 2017-02-23 13:12 | XMS REPORT ---
Author Author ITZ JUNIOR [employer] Address Unknown Phone Unavailable Care Team Providers Care Gravedigger Name Role Phone ITZ JUNIOR CP Unavailable Allergies No Known Allergies Problems Problem Type Condition Code Onset Dates Condition Status Problem Disturbance of skin sensation 782.0 Active Problem Other convulsions 780.39 Active Problem Carpal tunnel syndrome 354.0 Active Problem Thoracic disc herniation 722.11 Active Problem Posttraumatic stress disorder 309.81 Active Problem Need for prophylactic vaccination and inoculation, Influenza V04.81 Active Problem Major depressive disorder, recurrent episode, moderate 296.32 Active Problem Generalized anxiety disorder 300.02 Active Medications Medication Code System Code Instructions Start Date End Date Status Dosage Alprazolam [facility] 88042782523 1MG 2 times a day as needed for anxiety 1 tablet Results No Known Results Summary Purpose eClinicalWorks Submission
--- OUTSIDE RECORDS SUMMARY | 2017-02-23 13:12 | XMS REPORT ---
Author Author SABIHA MAST Organization [employer] Address Unknown Phone Unavailable Care Team Providers Care It Project Lead Name Role Phone SABIHA MAST CP Unavailable [...] Instructions Start Date End Date Status Dosage Hydrocodone-Acetaminophen [facility] [address]-86 5-325 MG Orally 3 times a day Feb 12, 2015 1 tablet as needed Results No Known Results Summary Purpose eClinicalWorks Submission
--- OUTSIDE RECORDS SUMMARY | 2017-02-23 13:13 | XMS REPORT ---
Author SABIHA Chapa Organization [employer] Address Unknown Phone Unavailable Care Team Providers Care Knot Tier Name Role Phone SABIHA MAST CP Unavailable Allergies No Known Allergies Problems Problem Type Condition Code Onset Dates Condition Status Problem Major depressive disorder in partial remission F32.4 Active Problem FRANCIS (generalized anxiety disorder) F41.1 Active Problem Thoracic disc herniation M51.24 Active Medications No Known Medications Results No Known Results Summary Purpose [employer]ClinicalWorks Submission
--- OUTSIDE RECORDS SUMMARY | 2017-02-23 13:13 | XMS REPORT ---
Author ITZ Jain [employer] Address Unknown Phone Unavailable Care Team Providers Care Dust Collector Treater Name Role Phone ITZ JUNIOR CP Unavailable [...] Date End Date Status Dosage Quetiapine Fumarate [facility] [address]-53 200 mg Orally Once a day qHS sleep November 03, 2014 1 tablet Results No Known Results Summary Purpose eClinicalWorks Submission
--- OUTSIDE RECORDS SUMMARY | 2017-02-23 13:13 | XMS REPORT ---
Author Author ITZ JUNIOR [employer] Address Unknown Phone Unavailable Care Team Providers Care Steamship Agent Name Role Phone ITZ JUNIOR CP Unavailable [...] Start Date End Date Status Dosage Alprazolam [facility] [id number] 1MG 2 times a day as needed for anxiety 1 tablet Results No Known Results Summary Purpose eClinicalWorks Submission
--- OUTSIDE RECORDS SUMMARY | 2017-02-23 13:13 | XMS REPORT ---
Author Author JAYME MAYNARD Organization [employer] Address Unknown Phone Unavailable Care Team Providers Care Butter Production Supervisor Name Role Phone JAYME MAYNARD CP Unavailable Allergies, Adverse Reactions, Alerts Substance [...] Active Problem Thoracic disc herniation M51.24 Active Assessment Other headache syndrome G44.89 Active Medications Medication Code System Code Instructions Start Date End Date Status Dosage ProAir HFA [facility] [address]-22 90 mcg/actuation Apr 26, 2012 2 puffs by Inhalation route 4 times per dayPRN Quetiapine Fumarate [facility] [address]-93 200 mg Orally Once a day qHS sleep November 03, 2014 1 tablet Trazodone HCl [facility] [address]-24 150 MG Orally Once a bedtime for sleep October 13, 2014 1 tablet Zofran [facility] [address]-62 4 MG Orally 2 times a day Jan 21, 2016 1 tablets Gabapentin [facility] [address]-51 800 MG Orally Three times a day August 15, 2014 take 1.5 tablet Omeprazole [facility] [address]-96 20 mg Apr 18, 2013 take 1 capsule ( 20 mg) by oral route once daily before a meal Alprazolam [facility] 88485430354 1MG Orally 2 times a day as needed for anxiety 1 tablet Procedures Procedure Coding System Code Date TORADOL (IM) 60 MG/2ML (UP TO 15 MG) CPT-4 J1885 Jan 21, 2016 THER/PROPH/DIAG INJ, SC/IM CPT-4 84463 Jan 21, 2016 Office Visit, Est Pt., Level 3 CPT-4 66106 Jan 21, 2016 PHENERGAN (IM) 12.5 MG (25 MG/ML) CPT-4 J2550 Jan 21, 2016 Vital Signs Date/Time: Jan 21, 2016 Cardiac Monitoring Heart Rate 112 bpm Weight 157.0 lbs Height 62 in BMI 28.71 Index Blood Pressure Diastolic 94 mmHg Blood Pressure Systolic 142 mmHg Results No Known Results Summary Purpose eClinicalWorks Submission
--- OUTSIDE RECORDS SUMMARY | 2017-02-23 13:13 | XMS REPORT ---
Author Author ITZ JUNIOR [employer] Address Unknown Phone Unavailable Care Team Providers Care Geological Technician Name Role Phone ITZ JUNIOR CP Unavailable [...] Start Date End Date Status Dosage Alprazolam [facility] [id number] 1MG 2 times a day as needed for anxiety 1 tablet Results No Known Results Summary Purpose eClinicalWorks Submission
--- OUTSIDE RECORDS SUMMARY | 2017-02-23 13:15 | XMS REPORT ---
Author Author SABIHA MAST Organization [employer] Address Unknown Phone Unavailable Care Team Providers Care Carbon Paper Machine Operator Name Role Phone SABIHA MAST CP Unavailable [...] Problem Generalized anxiety disorder 300.02 Active Medications No Known Medications Results No Known Results Summary Purpose eClinicalWorks Submission
--- OUTSIDE RECORDS SUMMARY | 2017-02-23 13:16 | XMS REPORT ---
Author SABIHA Chapa [facility] eClinicalWorks Address Unknown Phone Unavailable Care Team Providers Care Steffen House Supervisor Name Role Phone SABIHA MAST Unavailable Allergies, Adverse Reactions, Alerts Substance Reaction [...] F32.4 Active Problem Seizure disorder G40.909 Active Assessment Seizure disorder G40.909 Active Problem FRANCIS (generalized anxiety disorder) F41.1 Active Assessment Gastroenteritis K52.9 Active Medications Medication Code System Code Instructions Start Date End Date Status Dosage Quetiapine Fumarate [facility] [id number] 200 MG TAKE 1 TABLET ONE TIME DAILY AT BEDTIME FOR SLEEP Alprazolam [facility] 07803299181 1MG Orally 2 times a day as needed for anxiety 1 tablet Lomotil [facility] [address]-96 2.5-0.025 MG Orally Four times a day Mar 24, 2016 Mar 29, 2016 1 tablet as needed Zofran ODT [facility] [address]-92 4 mg Orally q4 h prn nausea Mar 24, 2014 1 Gabapentin [facility] [address]-15 800 MG Orally Three times a day August 15, 2014 take 1.5 tablet Zofran [facility] [address]-42 4 MG Orally 2 times a day Jan 21, 2016 1 tablets Omeprazole [facility] [address]-79 20 mg Apr 18, 2013 take 1 capsule ( 20 mg) by oral route once daily before a meal Trazodone HCl [facility] 06314269107 150 MG TAKE 1 TABLET ONE TIME AT BEDTIME FOR SLEEP ProAir HFA [facility] [address]-51 90 mcg/actuation Apr 26, 2012 2 puffs by Inhalation route 4 times per dayPRN Procedures Procedure Coding System Code Date Office Visit, Est Pt., Level 3 CPT-4 27291 Mar 24, 2016 MEASURE BLOOD OXYGEN LEVEL CPT-4 79752 Mar 24, 2016 Vital Signs Date/Time: Mar 24, 2016 Cardiac Monitoring Heart Rate 100 bpm Weight 159.3 lbs Height 62 in BMI 29.13 Index Oximetry 93 % Blood Pressure Diastolic 74 mmHg Blood Pressure Systolic 120 mmHg Results No Known Results Summary Purpose eClinicalWorks Submission
--- OUTSIDE RECORDS SUMMARY | 2017-02-23 13:17 | XMS REPORT ---
Author ITZ Jain [employer] Address Unknown Phone Unavailable Care Team Providers Care National Account Representative Name Role Phone ITZ JUNIOR CP Unavailable [...] Date End Date Status Dosage Quetiapine Fumarate [facility] [address]-30 200 MG Orally Once a day qHS sleep November 03, 2014 1 tablet Omeprazole [facility] [address]-90 20 mg Apr 18, 2013 take 1 capsule ( 20 mg) by oral route once daily before a meal Zofran ODT [facility] [address]-63 4 mg Mar 24, 2014 take 1 tablets by Oral route every 4 hours PRN Nausea or Vomiting Trazodone HCl [facility] [address]-80 150 MG Orally Once a bedtime for sleep October 13, 2014 1 tablet ProAir HFA [facility] [address]-69 90 mcg/actuation Apr 26, 2012 2 puffs by Inhalation route 4 times per dayPRN Gabapentin [facility] [address]-08 800 MG Orally Three times a day August 15, 2014 take 1.5 tablet Alprazolam [facility] 43529662153 1MG Orally 2 times a day as needed for anxiety 1 tablet Procedures Procedure Coding System Code Date No Charge CPT-4 27880 September 18, 2015 Office Visit, Est Pt., Level 3 CPT-4 59343 September 18, 2015 Vital Signs Date/Time: September 18, 2015 Cardiac Monitoring Heart Rate 104 bpm Weight 159.7 lbs Height 62 in BMI 29.21 Index Blood Pressure Diastolic 80 mmHg Blood Pressure Systolic 100 mmHg Results No Known Results Summary Purpose eClinicalWorks Submission
--- OUTSIDE RECORDS SUMMARY | 2017-02-23 13:17 | XMS REPORT ---
Author Author SABIHA MAST Organization [employer] Address Unknown Phone Unavailable Care Team Providers Care Residential Director Name Role Phone SABIHA MAST CP Unavailable [...] Start Date End Date Status Dosage Gabapentin [facility] [address]-57 800 MG Orally Three times a day August 15, 2014 take 1.5 tablet Results No Known Results Summary Purpose eClinicalWorks Submission
--- OUTSIDE RECORDS SUMMARY | 2017-02-23 13:17 | XMS REPORT ---
Author Author SABIHA MAST Organization [employer] Address Unknown Phone Unavailable Care Team Providers Care Perl Software Engineer Name Role Phone SABIHA MAST CP Unavailable [...]
--- OUTSIDE RECORDS SUMMARY | 2017-02-23 13:18 | XMS REPORT ---
Author Author ITZ JUNIOR [employer] Address Unknown Phone Unavailable Care Team Providers Care Campus Chaplain Name Role Phone ITZ JUNIOR CP Unavailable [...] Date End Date Status Dosage Trazodone HCl [facility] [address]-64 150 MG Orally Once a bedtime for sleep October 13, 2014 1 tablet Results No Known Results Summary Purpose eClinicalWorks Submission
--- OUTSIDE RECORDS SUMMARY | 2017-02-23 13:18 | XMS REPORT ---
Author Author SABIHA MAST Organization [employer] Address Unknown Phone Unavailable Care Team Providers Care Store Receiving Specialist Name Role Phone SABIHA MAST CP Unavailable [...]
--- OUTSIDE RECORDS SUMMARY | 2017-02-23 13:18 | XMS REPORT ---
Author Author MICKIE ROSS Organization [facility] Address [address] [place] [address] Care Team Providers Care Building Construction Contractor Name Role Phone MICKIE ROSS Unavailable PROBLEMS Type Condition ICD9-CM Code [id number] Code Onset Dates Condition Status SNOMED Code Problem FRANCIS (generalized anxiety disorder) F41.1 Active 13264103 Problem Slow transit constipation K59.01 Active 51094601 Problem Paroxysmal tachycardia I47.9 Active 56135056 Problem Thoracic disc herniation M51.24 Active 053387159 Problem Major depressive disorder in partial remission F32.4 Active 75965355 Problem Seizure disorder G40.909 Active 959939739 Problem Conversion disorder (or hysterical neurosis, 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 Eating while asleep. lg Non Drug Allergy May, Active SOCIAL HISTORY No smoking Hx information available PLAN OF CARE Activity Details Follow Up prn Reason: VITAL SIGNS Height 62 in 2016-05-27 Weight 158.4 lbs 2016-05-27 Temperature 97.8 degrees Fahrenheit 2016-05-27 Heart Rate 86 bpm 2016-05-27 Respiratory Rate 18 2016-05-27 BMI 28.97 kg/m2 2016-05-27 Blood pressure systolic 118 mmHg 2016-05-27 Blood pressure diastolic 72 mmHg 2016-05-27 MEDICATIONS Medication Instructions Dosage Frequency Start Date End Date Duration Status Gabapentin 800 MG Orally Three times a day take 1.5 tablet 8h Jul, Active Hydrocodone-Acetaminophen 10-325 MG Orally every 6 hrs 1 tablet as needed 6h Active ProAir HFA 90 mcg/actuation 2 puffs by Inhalation route 4 times per dayPRN Apr, Active Quetiapine Fumarate 200 mg TAKE 1 TABLET ONE TIME DAILY AT BEDTIME FOR SLEEP Active Omeprazole 20 mg take 1 capsule (20 mg) by oral route once daily before a meal Apr, Active Bactrim DS 800-160 MG Orally Twice a day 1 tablet 12h May, Jun, 5 days Active Gabapentin 800MG Orally Three times a day 1.5 tablet 8h 90 days Active Alprazolam 1MG Orally 2 times a day as needed for anxiety 1 tablet Active Trazodone HCl 150 MG TAKE 1 TABLET ONE TIME AT BEDTIME FOR SLEEP Active RESULTS Name Result Date Reference Range CULTURE, URINE 2016-05-27 Urine Culture, Routine Final report Result 1 No growth UA LONG DIP (IN HOUSE) 2016-05-27 Lot # [id number] Exp date 07-01-17 Clarity CLOUDY Color BROWN Odor NO GLU NEGATIVE YOLI NEGATIVE KET NEGATIVE SG >=1.030 BLO 3+ pH 6.0 Protein 2+ URO 0.2 NIT NEGATIVE ROSENDA NEGATIVE Lot # [id number] Exp date PROCEDURES Procedure Date Ordered Related Diagnosis Body Site URINALYSIS, AUTO, W/O SCOPE May 27, 2016 LAB NOT BILLED BY [facility] May 27, 2016 Office Visit, Est Pt., Level 3 May 27, 2016 IMMUNIZATIONS No Known Immunizations
--- OUTSIDE RECORDS SUMMARY | 2017-02-23 13:18 | XMS REPORT ---
Author Author ITZ JUNIOR [employer] Address Unknown Phone Unavailable Care Team Providers Care Brand Coordinator Name Role Phone ITZ JUNIOR CP Unavailable [...] Start Date End Date Status Dosage Alprazolam [facility] [id number] 1MG Orally 2 times a day as needed for anxiety 1 tablet Results No Known Results Summary Purpose eClinicalWorks Submission
--- OUTSIDE RECORDS SUMMARY | 2017-02-23 13:24 | XMS REPORT ---
Author ITZ Jain [employer] Address Unknown Phone Unavailable Care Team Providers Care Tip Cutter Name Role Phone ITZ JUNIOR CP Unavailable Allergies No Known Allergies Problems Problem Type Condition Code Onset Dates Condition Status Assessment PTSD (post-traumatic stress disorder) F43.10 Active Problem Disturbance of skin sensation 782.0 Active Assessment Major depressive disorder, recurrent episode, moderate F33.1 Active Assessment FRANCIS (generalized anxiety disorder) F41.1 Active Problem Other convulsions 780.39 Active Problem Carpal tunnel syndrome 354.0 Active Problem Thoracic disc herniation 722.11 Active Problem Posttraumatic stress disorder 309.81 Active Problem Need for prophylactic vaccination and inoculation, Influenza V04.81 Active Problem Major depressive disorder, recurrent episode, moderate 296.32 Active Problem Generalized anxiety disorder 300.02 Active Medications Medication Code System Code Instructions Start Date End Date Status Dosage Hydrocodone-Acetaminophen [facility] [address]-96 5-325 MG Orally 3 times a day Feb 12, 2015 1 tablet as needed Gabapentin [facility] [address]-79 800 MG Orally Three times a day August 15, 2014 take 1.5 tablet Quetiapine Fumarate [facility] [address]-38 200 MG Orally Once a day qHS sleep November 03, 2014 1 tablet ProAir HFA [facility] [address]-61 90 mcg/actuation Apr 26, 2012 2 puffs by Inhalation route 4 times per dayPRN Omeprazole [facility] [address]-57 20 mg Apr 18, 2013 take 1 capsule ( 20 mg) by oral route once daily before a meal Alprazolam [facility] 99966798619 1MG 2 times a day as needed for anxiety 1 tablet Trazodone HCl [facility] [address]-12 150 MG Orally Once a bedtime for sleep October 13, 2014 1 tablet Zofran ODT [facility] [address]-40 4 mg Mar 24, 2014 take 1 tablets by Oral route every 4 hours PRN Nausea or Vomiting Procedures Procedure Coding System Code Date Office Visit, Est Pt., Level 3 CPT-4 68109 Mar 20, 2015 [facility] VISIT ESTABLISHED PATIENT CPT-4 G0467 Mar 20, 2015 Vital Signs Date/Time: Mar 20, 2015 Cardiac Monitoring Heart Rate 72 bpm Weight 155.2 lbs Height 62 in BMI 28.38 Index Blood Pressure Diastolic 84 mmHg Blood Pressure Systolic 132 mmHg Results No Known Results Summary Purpose eClinicalWorks Submission
[2017-02-23] MEDS ORDERED: METO50TA2 PO (14:01)
[2017-02-23] MEDS ORDERED: ALPR2TAB2 PO (14:01)
[2017-02-23] MEDS ORDERED: RT-ALBUINH IH (14:01)
[2017-02-23] MEDS ORDERED: GABA600T2 PO (14:01)
[2017-02-23 14:25] LABS: BILIRUBIN,URINE NEGATIVE (NEGATIVE); KETONES,URINE NEGATIVE (NEGATIVE); LEUKOCYTE ESTERASE ,URINE 2+ (NEGATIVE); NITRITE,URINE POSITIVE (NEGATIVE); PH,URINE 5 (5-9); PROTEIN,URINE 3+ (NEGATIVE); UROBILINOGEN,URINE NORMAL (NORMAL)
--- NOTE | 2017-02-23 15:13 | ED General ---
General Chief Complaint: Lower Extremity Stated Complaint: RT LEG PAIN Nursing Triage Note: Pt reports R leg pain starting this morning upon waking. Pt reports pain starts near her hip and radiates down her leg. Nursing Sepsis Screen: No Definite Risk Source of Information: Patient Exam Limitations: No Limitations History of Present Illness Time Seen by Provider: 14:05 Initial Comments This 46-year-old woman presents to the emergency room with multiple complaints. Her primary complaint is that she woke this morning with right leg pain radiating from the lateral hip down toward the knee. It is waxing and waning. She denies any paresthesia with it. She does note having a history of disc disease. An MRI of the thoracic spine from 2014 Notes a disc bulge resulting in some stenosis at T10-11. She denies any injury or strain related to her pain. She secondarily complains of hematuria this morning. She reports this is not unusual for her as she has history of renal stones. She has not taken any medication for her pain yet. Finally she reports having some in her mid and upper abdominal pain with eating. Allergies and Home Medications Allergies Coded Allergies: Sulfa (Sulfonamide Antibiotics) (Unverified Allergy, Unknown, 09/25/13) hydrocodone (Verified Allergy, Unknown, itching, 10/26/14) ketorolac tromethamine (Verified Allergy, Unknown, 05/04/11) levofloxacin (Unverified Allergy, Unknown, 09/25/13) GIVES HER THRUSH ondansetron (Verified Allergy, Unknown, 10/13/15) tramadol (Unverified Allergy, Unknown, 06/11/16) Home Medications Albuterol Sulfate 6.7 Gm Hfa.aer.ad, Unknown Dose IH PRN PRN for SHORTNESS OF BREATH, (Reported) Alprazolam 2 Mg Tablet, 2 MG PO HS, (Reported) Cephalexin 500 Mg Capsule, 500 MG PO QID, #28 Prescribed by: ANGEL DOBSON on 02/23/17 1518 Gabapentin 600 Mg Tablet, 1,200 MG PO BID, (Reported) Hydrocodone/Acetaminophen 1 Each Tablet, 2 EACH PO Q4H PRN for PAIN, (Reported) Metoprolol Tartrate 50 Mg Tablet, 50 MG PO PRN, (Reported) Omeprazole 20 Mg Capsule.dr, 20 MG PO BID, #20 Prescribed by: ANGEL DOBSON on 02/23/17 1518 Prednisone 20 Mg Tab, 20 MG PO DAILY, #3 Prescribed by: ANGEL DOBSON on 02/23/17 1518 Quetiapine Fumarate 200 Mg Tablet, 200 MG PO HS, (Reported) Trazodone HCl 150 Mg Tablet, 150 MG PO HS, (Reported) Constitutional: no symptoms reported EENTM: no symptoms reported Respiratory: no symptoms reported Cardiovascular: no symptoms reported Gastrointestinal: see HPI Genitourinary: see HPI : No Musculoskeletal: see HPI Skin: no symptoms reported Psychiatric/Neurological: No Symptoms Reported Hematologic/Lymphatic: No Symptoms Reported Immunological/Allergic: no symptoms reported Past Gxjinzu-Izmucs-Wyxucj Hx Patient Social History Alcohol Use: Denies Use Recreational Drug Use: No Smoking Status: Never a Smoker Recent Foreign Travel: No Contact w/Someone Who Travel: No Recent Infectious Disease Expo: No Recent Hopitalizations: No Immunizations Up To Date Date of Pneumonia Vaccine: Mar 01, 2013 Date of Influenza Vaccine: Mar 01, 2016 Seasonal Allergies Seasonal Allergies: No Surgeries History of Surgeries: Yes (breast reduction, several cysto's with UD, lap santa) Surgeries: Appendectomy, Bladder Surgery ("Bladder stretching"), Gallbladder, Hysterectomy, Renal (Procedures for treatment of renal stones), Tubal Ligation Respiratory History of Respiratory Disorde: Yes Respiratory Disorders: Asthma, Sleep Apnea Currently Using CPAP: Yes (rarely uses) Cardiovascular History of Cardiac Disorders: Yes Cardiac Disorders: Hypertension, Irregular Heartbeat Neurological History of Neurological Disord: Yes Neurological Disorders: Headaches /Migraines, Seizure Disorder Reproductive System : No Hx Reproductive Disorders: No Sexually Transmitted Disease: No HIV/AIDS: No 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 Problems, Ovarian Cyst INSTRUCTOR TRAFFIC SAFETY History: Hysterectomy Genitourinary History of Genitourinary Disor: Yes Genitourinary Disorders: Bladder Infection, Kidney Stones, Renal Failure, UTI- Chronic Gastrointestinal History of Gastrointestinal Di: Yes Gastrointestinal Disorders: Gastroesophageal Reflux, Pancreatitis, Chronic Diarrhea, Hiatal Hernia Musculoskeletal History of Musculoskeletal Dis: Yes Musculoskeletal Disorders: Fibromyalgia, Chronic Back Pain Endocrine History of Endocrine Disorders: No HEENT History of HEENT Disorders: No Cancer History of Cancer: Yes Cancer: Vaginal Psychosocial History of Psychiatric Problem: No Behavioral Health Disorders: Anxiety, Depression Integumentary History of Skin or Integumenta: No Blood Transfusions History of Blood Disorders: No Adverse Reaction to a Blood Tr: No Family Medical History Significant Family History: No Pertinent Family Hx, Heart Disease Family Medial History: Dementia 19 FATHER Family history: Cardiovascular disease 19 FATHER Family history: Diabetes mellitus G8 SISTER Family history: Hypertension 19 FATHER 19 MOTHER History of - respiratory disease 19 MOTHER Seizure disorder G8 SISTER No Family History of: Abdominal aortic aneurysm Radiant's disease Alcoholism Aphasia Cancer Cancer of colon Cataract Chest pain Congenital heart disease Congestive heart failure Cystic fibrosis Family history: Osteoporosis Family history: Thyroid disorder Headache Hearing loss Heart disease Hereditary disease History of - anemia History of - disorder History of drug abuse Human immunodeficiency virus (HIV) seropositivity Hypercholesterolemia Infertile Kidney disease Malignant neoplasm of lung Myocardial infarction Parkinson's disease Prostate cancer Psychotic disorder Stroke Tuberculosis Visual impairment Physical Exam Vital Signs Vital Sign - Last 12Hours 02/23/17 13:51 Temp 97.0 Pulse 78 Resp 18 B/P (MAP) 120/93 Pulse Ox 96 O2 Delivery Room Air Capillary Refill : Less Than 3 Seconds General Appearance: No Apparent Distress, WD/WN HEENT: PERRL/EOMI, Normal ENT Inspection Neck: Normal Inspection Respiratory: Lungs Clear, Normal Breath Sounds, No Accessory Muscle Use, No Respiratory Distress Cardiovascular: Regular Rate, Rhythm, No Edema, No Murmur Gastrointestinal: Normal Bowel Sounds, Soft, Tenderness (Mild in the upper central abdomen) Back: Normal Inspection Extremity: Normal Inspection, No Pedal Edema, Other (Tenderness over the right lateral hip in the location of the trochanteric bursa. Tenderness over the right SI joint) Neurologic/Psychiatric: Alert, Oriented x3, No Motor/Sensory Deficits, Normal Mood/Affect, library technology instructor II-XII Norm as Tested Skin: Normal Color, Warm/Dry Progress/Results/Core Measures Results/Orders Lab Results Laboratory Tests Test 02/23/17 14:16 Range/Units Urine Color YELLOW Urine Clarity CLEAR Urine pH 5 5-9 Urine Specific [place] 1.020 1.016-1.022 Urine Protein 3+ H NEGATIVE Urine Glucose (UA) NEGATIVE NEGATIVE Urine Ketones NEGATIVE NEGATIVE Urine Nitrite POSITIVE H NEGATIVE Urine Bilirubin NEGATIVE NEGATIVE Urine Urobilinogen NORMAL NORMAL MG/DL Urine Leukocyte Esterase 2+ H NEGATIVE Urine RBC (Auto) 5+ H NEGATIVE Urine RBC TNTC H /HPF Urine WBC 10-25 H /HPF Urine Squamous Epithelial Cells NONE /HPF Urine Crystals NONE /LPF Urine Bacteria NEGATIVE /HPF Urine Casts NONE /LPF Urine Mucus NEGATIVE /LPF Urine Culture Indicated YES Micro Results Microbiology 02/23/17 Urine Culture - Preliminary, Resulted NO GROWTH My Orders Orders - ANGEL MATA MD Ua Culture If Indicated (02/23/17 14:14) Urine Culture (02/23/17 14:16) Oxycodone/Apap 5/325mg Tablet (Percocet (02/23/17 15:15) Vital Signs/I&O Blood Pressure Mean: 102 Progress Note : Progress Note Urinary tract infection was suspected based on UA. Antibiotics were prescribed. Patient's allergy profile limits medications that can be prescribed for pain. She was given one Percocet prior to discharge. See discharge instructions. Departure Impression Impression: Primary Impression: Urinary tract infection Qualified Codes: N39.0 - Urinary tract infection, site not specified; R31.9 - Hematuria, unspecified Additional Impressions: Hematuria Qualified Codes: R31.9 - Hematuria, unspecified Upper abdominal pain Sacroiliitis Right hip pain Disposition: HOME, SELF-CARE Condition: Improved Departure-Patient Inst. Decision time for Depature: 15:05 Referrals: SABIHA MAST MD (PCP/Family) Primary Care Physician Patient Instructions: Blood in the Urine (Hematuria) in Adults, Sacroiliac Joint Pain, Urinary Tract Infection, Adult (DC) Add. Discharge Instructions: Drink plenty of clear liquids. Please follow-up with your primary care doctor by phone in 48 hours to review urine cultures. Keep your appointment for next week. Return to the emergency room if symptoms worsen. Take an antacid such as omeprazole 20 mg or Pepcid (famotidine) 20 mg twice daily until you can discuss further with your doctor. You may take ibuprofen up to 600 mg every 6 hours as needed for your pain. Use prednisone as prescribed. Always take prednisone and ibuprofen with food or milk to avoid stomach irritation. All discharge instructions reviewed with patient and/or family. Voiced understanding. Scripts Prednisone (Prednisone) 20 Mg Tab 20 MG PO DAILY, #3 TAB Prov: ANGEL MATA MD 02/23/17 Omeprazole (Omeprazole) 20 Mg Capsule.dr 20 MG PO BID, #20 CAP Prov: ANGEL MATA MD 02/23/17 Cephalexin (Keflex) 500 Mg Capsule 500 MG PO QID, #28 CAP Prov: ANGEL MATA MD 02/23/17 Copy Copies To 1: SABIHA MAST MD, JOSHUA T MD Feb 23, 2017 15:13
[2017-02-23] MEDS ORDERED: oxyCODONE/APAP 5/325MG (PERCOCET 5) TABLET PO ONE (15:15)
[2017-02-23] MEDS ORDERED: CEPH-507 PO (15:18)
[2017-02-23] MEDS ORDERED: PRD20T PO (15:18)
[2017-02-23] MEDS ORDERED: OMEP20CA12 PO (15:18)
[2017-02-23 15:29] VITALS: BP 106/55
== END 2017-02-23 15:27 | disposition home or self-care (01) ==
LOC: EDUNIT# 12:56 → ER 12:59
DX: N39.0 Urinary tract infection, site not specified (principal); M46.1 Sacroiliitis, not elsewhere classified; R10.10 Upper abdominal pain, unspecified; F41.9 Anxiety disorder, unspecified; F32.9 Major depressive disorder, single episode, unspecified; K21.9 Gastro-esophageal reflux disease without esophagitis; J45.909 Unspecified asthma, uncomplicated; G47.30 Sleep apnea, unspecified; G40.909 Epilepsy, unspecified, not intractable, without status epilepticus; I10 Essential (primary) hypertension; G43.909 Migraine, unspecified, not intractable, without status migrainosus; Z85.44 Personal history of malignant neoplasm of other female genital organs; Z87.42 Personal history of other diseases of the female genital tract; Z87.442 Personal history of urinary calculi; Z82.49 Family history of ischemic heart disease and other diseases of the circulatory system; Z90.710 Acquired absence of both cervix and uterus; Z90.49 Acquired absence of other specified parts of digestive tract; Z98.51 Tubal ligation status
CPT/HCPCS: 81000; 87088; 99283

== ENCOUNTER → 2017-05-01 | Outpatient (CLI) | payer MEDICARE ==
[~2017-05-01] MED LIST changes: +ALPR2TAB2 PO; +CEPH-507 PO; +METO50TA2 PO; +OMEP20CA12 PO
[2017-05-01 11:21] LABS: BASOPHILS % (AUTO) 1 % (0-10); EOSINOPHILS # (AUTO) 0.2 10^3/uL (0.0-0.3); EOSINOPHILS % (AUTO) 3 % (0-10); LYMPHOCYTES # (AUTO) 2.3 X 10^3 (1.0-4.0); LYMPHOCYTES % (AUTO) 37 % (12-44); MEAN CORPUSCULAR HEMOGLOBIN 28 PG (25-34); MEAN CORPUSCULAR HGB CONC 33 G/DL (32-36); MEAN CORPUSCULAR VOLUME 85 FL (80-99); MEAN PLATELET VOLUME 10.8 FL (7.4-10.4); MONOCYTES # (AUTO) 0.6 X 10^3 (0.0-1.0); MONOCYTES % (AUTO) 10 % (0-12); NEUTROPHILS # (AUTO) 3.1 X 10^3 (1.8-7.8); NEUTROPHILS % (AUTO) 50 % (42-75); PLATELET COUNT 201 10^3/uL (130-400); RED BLOOD COUNT 4.86 10^6/uL (4.35-5.85); RED CELL DISTRIBUTION WIDTH 12.9 % (10.0-14.5); WHITE BLOOD COUNT 6.2 10^3/uL (4.3-11.0)
[2017-05-01 11:48] LABS: ALANINE AMINOTRANSFERASE 15 U/L (0-55); ALBUMIN 4.3 GM/DL (3.2-4.5); ANION GAP 9 MMOL/L (5-14); ASPARTATE AMINO TRANSFERASE 12 U/L (5-34); BILIRUBIN,TOTAL 0.4 MG/DL (0.1-1.0); BLOOD UREA NITROGEN 14 MG/DL (7-18); BUN/CREATININE RATIO 15; CALCIUM 9.9 MG/DL (8.5-10.1); CARBON DIOXIDE 29 MMOL/L (21-32); CHLORIDE 101 MMOL/L (98-107); CHOLESTEROL 222 MG/DL (< 200); CREATININE SERUM 0.92 MG/DL (0.60-1.30); DIRECT LDL 124 MG/DL (1-129); GFR ESTIMATED > 60; GLUCOSE 91 MG/DL (70-105); POTASSIUM 4.4 MMOL/L (3.6-5.0); SODIUM 139 MMOL/L (135-145); TOTAL PROTEIN 7.8 GM/DL (6.4-8.2); TRIGLYCERIDES 347 MG/DL (<150); VLDL CHOLESTEROL 69 MG/DL (5-40)
== END ==
LOC: LAB 10:55
PROVIDERS: ATTEND Internal Medicine Interventional Cardiology
DX: E78.5 Hyperlipidemia, unspecified (principal); I73.9 Peripheral vascular disease, unspecified; I10 Essential (primary) hypertension; R00.2 Palpitations; R06.02 Shortness of breath
CPT/HCPCS: 36415; 80053; 80061; 85025

== ENCOUNTER 2017-10-21 12:15 | Outpatient (CLI) | payer MEDICARE ==
[~2017-10-21] VITALS: Ht 154.9 cm; Wt 72.6 kg
[~2017-10-21 12:15] MED LIST changes: +HYDR-34 PO; -HYDR-3812 PO; -HYDR-3816 PO; +METO50TA15 PO; -METO50TA2 PO
[2017-10-21] MEDS ORDERED: ATOR10TA PO (12:20)
[2017-10-21] MEDS ORDERED: TRAZ300T3 PO (12:20)
[2017-10-21] MEDS ORDERED: QUET300T44 PO (12:20)
[2017-10-21] MEDS ORDERED: ALPR1TAB7 PO (12:20)
[2017-10-21] MEDS ORDERED: AMLO2.5T PO (12:20)
== END 2017-10-21 13:12 ==
LOC: PREOP 12:15
PROVIDERS: ATTEND Surgery
DX: Z01.818 Encounter for other preprocedural examination (principal); R19.7 Diarrhea, unspecified

== ENCOUNTER 2017-10-27 09:22 | Day surgery (SDC) | payer MEDICARE ==
[~2017-10-27] VITALS: Ht 154.9 cm; Wt 71.7 kg
[~2017-10-27 09:22] MED LIST changes: +AMLO2.5T PO; +ATOR10TA PO; +QUET300T44 PO; +TRAZ300T3 PO
--- OUTSIDE RECORDS SUMMARY | 2017-10-27 09:28 | XMS REPORT ---
Author Author ITZ JUNIOR Organization 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 Eating while asleep. lg Non Drug Allergy Aug, Active SOCIAL HISTORY Never Assessed PLAN OF CARE Activity Details Follow Up 4 Months Reason: VITAL SIGNS Height 62 in 2016-09-25 Weight 158.5 lbs 2016-09-25 Heart Rate 104 bpm 2016-09-25 Respiratory Rate 20 2016-09-25 BMI 28.99 kg/m2 2016-09-25 Blood pressure systolic 119 mmHg 2016-09-25 Blood pressure diastolic 83 mmHg 2016-09-25 MEDICATIONS Medication Instructions Dosage Frequency Start Date End Date Duration Status Hydrocodone-Acetaminophen 10-325 MG Orally every 6 hrs 1 tablet as needed 6h Active Metoprolol Tartrate 50 mg Orally Twice a day 1/2 tab 12h Jul, 30 day(s) Active ProAir HFA 90 mcg/actuation 2 puffs by Inhalation route 4 times per dayPRN Apr, Active Gabapentin 800MG Orally Three times a day 1.5 tablet 8h Active Omeprazole 20 mg take 1 capsule (20 mg) by oral route once daily before a meal Apr, Active Quetiapine Fumarate 200 mg TAKE 1 TABLET ONE TIME DAILY AT BEDTIME FOR SLEEP Active Trazodone HCl 150 MG TAKE 1 TABLET ONE TIME AT BEDTIME FOR SLEEP Active Alprazolam 1MG Orally 2 times a day as needed for anxiety 1 tablet Active RESULTS No Results PROCEDURES Procedure Date Ordered Result Body Site DRUG TEST PRSMV DIR OPT OBS September 25, 2016 IMMUNIZATIONS No Known Immunizations MEDICAL (GENERAL) HISTORY Type Description Date Medical History fibromyalgia Medical History seizures Medical History anxiety Medical History Pseudo seizures Surgical History cholecystectomy Surgical History tubal ligation Surgical History hysterectomy Surgical History tonsillectomy Surgical History carpal tunnel release Surgical History breast reduction Surgical History Bladder sling/stretch 06/2016 Hospitalization History surgeries Hospitalization History ER for seizures 03/24/16
--- OUTSIDE RECORDS SUMMARY | 2017-10-27 09:28 | XMS REPORT | Clinical Summary ---
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 If you do not see the information that you expected, contact Release of Information in the Health Information Management department at [phone] for further assistance in locating additional records.[facility] Allergies Active Allergy Reactions Severity Noted [...] PHYSICAL (COMPREHENSIVE) 1976 EXAM PERTUSSIS VACCINE 1980 HIV SCREENING 1984 TETANUS VACCINE 1986 CERVICAL CANCER SCREENING 1999 BREAST CANCER SCREENING 2009 INFLUENZA VACCINE 03/01/2018 Results Not on filefrom Last 3 Months
--- OUTSIDE RECORDS SUMMARY | 2017-10-27 09:31 | XMS REPORT ---
Author Author MEGAN GUAJARDO [facility] Address [address] [place] [address] Care Team Providers Care Picking Table Worker Name Role Phone MEGAN GUAJARDO Unavailable PROBLEMS Type Condition ICD9-CM Code [id number] Code Onset Dates Condition Status SNOMED Code Problem FRANCIS (generalized anxiety disorder) F41.1 Active 54085887 Problem Thoracic disc herniation M51.24 Active 900754251 Problem Major depressive disorder in partial remission F32.4 Active 49423016 Problem Mild episode of recurrent major depressive disorder F33.0 Active 850874741 Problem Constipation, unspecified constipation type K59.00 Active 67477808 Problem Seizure disorder G40.909 Active 820617684 Problem Conversion disorder (or hysterical neurosis, conversion type) F44.9 Active 44551485 Problem Slow transit constipation K59.01 Active 21966516 Problem Paroxysmal tachycardia I47.9 Active 83106435 ALLERGIES Substance Reaction Event Type Date Status Macrobid hives Drug Allergy Dec, Active Levaquin hives Drug Allergy Dec, Active Tramadol Unknown Drug Allergy Dec, Active Ambien 10 Mg Tablet Sleep Walking and Sleep Driving. Eating while asleep. lg Non Drug Allergy Dec, Active ENCOUNTERS Encounter Location Date Diagnosis [facility] [id number] [address] September, [facility] [id number] [address] Jul, [facility] [id number] [place] [address] 67508- 4848 Jul, Dorsalgia, unspecified M54.9 [facility] [id number], [place] [address] 28[address] Jul, Mild episode of recurrent major depressive disorder F33.0 and FRANCIS (generalized anxiety disorder) F41.1 [facility] [id number] [place] [address] 42777- 2389 May, [facility] [id number] [place] [address] 39536 -0209 May, Dysuria R30.0 and Acute cystitis with hematuria N30.01 [facility] [address] [address]- 6993 Apr, [facility] [id number] [place] [address] 34424- 6442 Apr, Major depressive disorder in partial remission F32.4 and FRANCIS (generalized anxiety disorder) F41.1 [facility] [id number] [place] [address] 37976- 0397 Mar, Paroxysmal tachycardia I47.9 [facility] [address] 78498- 4209 Mar, Paroxysmal tachycardia I47.9 and Pain of left lower extremity M79.605 [facility] [id number] [place] [address] 89538- 8111 Mar, FRANCIS (generalized anxiety disorder) F41.1 and Major depressive disorder in partial remission F32.4 [facility] [id number] [place] [address] 29489- 9252 Jan, [facility] [id number] [place] [address] 73335- 3627 Jan, [facility] [id number] [place] [address] 65569- 6723 Jan, [facility] [id number] [place] [address] 31033 -7966 Dec, Constipation, unspecified constipation type K59.00 [facility] [id number] [place] [address] 68967- 0912 Dec, [facility] [address] [place] [address]- [address] Nov, [facility] [id number] [place] [address] 45721- 3192 Nov, Major depressive disorder in partial remission F32.4 and FRANCIS (generalized anxiety disorder) F41.1 [facility] [id number] [place] [address] 68491 -2579 Oct, Abdominal pain R10.9 and Slow transit constipation K59.01 [facility] [address] 76642- 5019 Aug, Major depressive disorder in partial remission F32.4 ; FRANCIS ( generalized anxiety disorder) F41.1 ; Conversion disorder (or hysterical neurosis, conversion type) F44.9 ; Dorsalgia, unspecified M54.9 and Long-term use of high-risk medication Z79.899 [facility] [id number] [place] [address] 00471- 6912 Aug, [facility] [id number] [place] [address] 80247- 3021 Jul, Paroxysmal tachycardia I47.9 [facility] [address] 28222- 6264 Jul, Paroxysmal tachycardia I47.9 [facility] [id number] [place] [address] 81656- 9123 Jun, [facility] [id number] [place] [address] 60655- 1435 Jun, Major depressive disorder in partial remission F32.4 ; FRANCIS ( generalized anxiety disorder) F41.1 and Conversion disorder (or hysterical neurosis, conversion type) F44.9 [facility] [id number] [place] [address] 51299 -0910 May, Pelvic pain R10.2 [facility] [id number] [place] [address] 17160 -2871 Apr, Gastroenteritis K52.9 [facility] [id number] [place] [address] 94391 -9275 17 Apr, 2016 Blood in urine R31.9 and Acute cystitis with hematuria N30.01 [facility] [id number] [place] [address] 38601- 3574 Apr, Major depressive disorder in partial remission F32.4 ; FRANCIS ( generalized anxiety disorder) F41.1 and Conversion disorder (or hysterical neurosis, conversion type) F44.9 [facility] [id number] [place] [address] 40686- 1023 Apr, [facility] [address] 56919- 3036 Apr, Abnormal mammogram R92.8 [facility] [address] 10112- 7826 Mar, [facility] [address] 33732- 2982 Mar, Gastroenteritis K52.9 and Seizure disorder G40.909 [facility] [address] 64447- 7699 Dec, [facility] [id number] [place] [address] 81603 -8165 Dec, Other headache syndrome G44.89 [facility] [address] 61137- 5698 Dec, [facility] [id number] [place] [address] 41946- 0378 Dec, Thoracic disc herniation M51.24 [facility] [address] 32554- 1322 Dec, [facility] [id number] [place] [address] 76477- 7085 Nov, Major depressive disorder in partial remission F32.4 and FRANCIS (generalized anxiety disorder) F41.1 [facility] [address], [place] [address]- 2592 Nov, [facility] [address], [place] [address]- 9728 Nov, Dorsalgia, unspecified M54.9 [facility] [address], [place] [address]- 4401 Oct, [facility] [id number] [place] [address] 68226- 3265 September, [facility] [id number] [place] [address] 61504- 2098 Aug, [facility] [id number] [place] [address] 91445- 0405 Aug, Major depressive disorder in partial remission F32.4 and FRANCIS (generalized anxiety disorder) F41.1 [facility] [id number] [place] [address] 00353- 6424 Aug, [facility] [id number] [place] [address] 66970- 3945 Jul, Abnormal mammogram R92.8 [facility] [address], [place] [address]- 6572 Jul, [facility] [id number], [place] [address]- 1968 Jul, [facility] [address], [place] [address]- 6929 Jul, [facility] [address], [place] [address]- 5360 Jul, [facility] [address] [address]- 3695 Jul, [facility] [address] 7497 Jul, [facility] [id number] [place] [address] 40552- 8411 Jun, Major depressive disorder in partial remission F32.4 and FRANCIS (generalized anxiety disorder) F41.1 [facility] [id number] [place] [address] 776274- 8574 Jun, [facility] [id number] [place] [address] 05785- 9642 May, [facility] [id number] [place] [address] 80663- 5317 Apr, [facility] [id number] [place] [address] 29591- 1819 Mar, Major depressive disorder, recurrent episode, moderate F33.1 ; PTSD (post-traumatic stress disorder) F43.10 and FRANCIS (generalized anxiety disorder) F41.1 [facility] [id number] [place] [address] 45475- 5460 Mar, [facility] [id number] [place] [address] 70745- 0480 Mar, [facility] [id number] [place] [address] 98926- 9567 Mar, [facility] [id number] [place] [address] 46251- 0906 Mar, [facility] [id number] [place] [address] 19913- 1327 23 Jan, 2015 [facility] [id number] [place] [address] 20626- 2548 15 Jan, 2015 [facility] [id number] [place] [address] 75433- 8006 15 Jan, 2015 [facility] [id number] [place] [address] 09712- 3191 14 Jan, 2015 Thoracic disc herniation 722.11 [facility] [id number] [place] [address] 75792- 0616 Dec, [facility] [address] [facility] [id number] [address]- 8236 Dec, [facility] [address] [facility] [id number] [place] [address]- 3086 Dec, [facility] [address] [facility] [id number], [place] [address]- 2546 Nov, [facility] [address], [place] [address]- 7157 Nov, Generalized anxiety disorder 300.02 ; Posttraumatic stress disorder 309.81 and Major depressive disorder, recurrent episode, moderate 296.32 [facility] [address] [facility] [id number] [place] [address]- 7946 Nov, [facility] [address] [facility] [id number] [place] [address]- 0456 Nov, [facility] [address] [address]- 8486 Oct, [facility] [id number] [address]- 1151 Oct, [facility] [id number] [address]- 7324 Oct, [facility] [id number] [address]- 5557 September, [facility] [id number] [address]- 1836 September, [facility] [id number] [address]- 8088 Aug, [facility] [address] [facility] [id number] [place] [address]- 5527 Aug, [facility] [address] [facility] [id number] [address]- 2546 Jul, [facility] [id number] [address]- 5836 Jul, [facility] [place] [facility] [address] [id number] [place] [address]- 2669 Jul, [facility] [place] [facility] [address] [id number] [place] [address]- 2071 17 Jul, 2014 [facility] [place] [facility] [address] [id number] [place] 7883 16 Jul, 2014 [facility] [place] [facility] [address] [id number] [place] [address]- 9549 16 Jul, 2014 [facility] [place] [facility] [address] [id number] [place] [address]- 2616 Jul, [facility] [place] [facility] [address] [id number] [place] [address]- 0073 Jul, [facility] [place] [facility] [address] [id number] [place] [address]- 8027 Jul, [facility] [place] [facility] [address] [id number] [place] [address]- 3848 Jul, [facility] [place] [facility] [address] [id number] [place] [address]- 2242 Jun, [facility] [place] [facility] [address] [id number] [place] [address]- 7606 Jun, [facility] [place] [facility] [address] [id number] [place] [address]- 2200 Jun, [facility] [place] [facility] [address] [id number] [place] [address]- 8451 May, [facility] [place] [facility] [address] [id number] [place] [address]- 7553 Apr, [facility] [place] [facility] [address] [id number] [place] [address]- 3162 Apr, [facility] [place] [facility] [address] [id number] [place] [address]- 4857 Apr, [facility] [place] [facility] [address] [id number] [place] [address]- 6220 Apr, [facility] [place] [facility] [address] [id number] [place] [address]- 3627 Apr, [facility] [place] [facility] [address] [id number] [place] [address]- 9198 Apr, [facility] [place] [facility] [address] [id number] [place] [address]- 4165 Apr, [facility] [place] [facility] [address] [id number] [place] [address]- 3640 Apr, [facility] [place] [facility] [address] [id number] [place] [address]- 5351 Mar, [facility] [place] [facility] [address] [id number] [place] [address]- 0687 Mar, [facility] [place] [facility] [address] [id number] [place] [address]- 4390 Mar, [facility] [place] [facility] [address] [id number] [place] [address]- 0647 Mar, [facility] [place] [facility] [address] [id number] [place] [address]- 8388 Mar, [facility] [place] [facility] [address] [id number] [place] [address]- 5050 Mar, [facility] [place] [facility] [address] [id number] [place] [address]- 9045 Mar, [facility] [place] [facility] [address] [id number] [address]- 0768 Mar, [facility] [place] [facility] [address] [id number] [place] [address]- 2113 Mar, [facility] [place] [facility] [address] [id number] [place] [address]- 9628 Mar, [facility] [place] [facility] [address] [id number], [place] [address]- 1832 Mar, [facility] [place] [facility] [address] [id number] [place] [address]- 1242 14 Mar, 2013 [facility] [place] [facility] [address] [id number] [place] [address]- 6213 14 Mar, 2013 [facility] [place] [facility] [address] [id number] [place] [address]- 9840 07 Mar, 2013 [facility] [place] [facility] [address] [id number] [place] [address]- 9925 07 Mar, 2013 [facility] [place] [facility] [address] [id number] [place] [address]- 3862 06 Mar, 2013 [facility] [place] [facility] [address] [id number] [place] [address]- 7601 06 Mar, 2013 [facility] [place] [facility] [address] [id number] [place] [address]- 2356 19 Sep, 2013 [facility] [place] [facility] [address] [id number] [place] [address]- 7911 19 Sep, 2013 [facility] [place] [facility] [address] [id number] [place] [address]- 8236 09 Sep, 2013 [facility] [place] [facility] [address] [id number] [place] [address]- 7370 09 Sep, 2013 [facility] [place] [facility] [address] [id number] [place] [address] 254 05 Sep, 2013 [facility] [place] [facility] [address] [id number] [place] [address]- 2541 05 Sep, 2013 [facility] [place] [facility] [address] [id number] [place] [address] 254 05 Sep, 2013 [facility] [place] [facility] [address] [id number] [place] [address] 2546 05 Sep, 2013 [facility] [place] [facility] [address] [id number] [place] [address]- 2540 03 Sep, 2013 [facility] [place] [facility] [address] [id number] [place] [address]- 2545 Jan, [facility] [address] [id number] [place] [address]- 5936 Jan, [facility] [place] [facility] [address] [id number] [place] [address]- 6236 Jan, [facility] [address] [id number] [place] [address]- 0256 Jan, [facility] [address] [id number] [place] [address]- 0749 Dec, [facility] [address] [id number] [place] [address]- 8534 Dec, [facility] [address] [id number] [place] [address]- 1192 Dec, [facility] [address] [id number] [place] [address]- 4276 Dec, [facility] [address] [id number] [place] [address]- 4156 Dec, [facility] [address] [id number] [place] [address]- 3794 Dec, [facility] [address] [place] [id number] Dec [facility] [place] [id number] Dec [facility] [place] [facility] [address] [id number] [place] [address]- 3003 Dec, [facility] [address] [id number] [place] [address]- 5559 Dec, [facility] [place] [facility] [address] [id number] [place] [address]- 9758 Dec, [facility] [place] [facility] [address] [id number] [place] [address]- 3842 Dec, [facility] [place] [facility] [address] [id number] [place] [address]- 1063 Nov, [facility] [place] [facility] [address] [id number] [place] [address]- 9102 Nov, [facility] [place] [facility] [address] [id number] [place] [address]- 7355 Nov, [facility] [place] [facility] [address] [id number] [place] [address]- 8354 Nov, [facility] [place] [facility] [address] [id number] [place] [address]- 6918 Nov, [facility] [place] [facility] [address] [id number] [place] [address]- 0678 Nov, [facility] [place] [facility] [address] [id number] [place] [address]- 5530 Nov, [facility] [place] [facility] [address] [id number] [place] [address]- 2081 Nov, [facility] [place] [facility] [address] [id number] [place] [address]- 4196 Nov, [facility] [place] [facility] [address] [id number] [place] [address]- 1162 Nov, [facility] [place] [facility] [address] [id number] [place] [address]- 8979 Nov, [facility] [place] [facility] [address] [id number] [place] [address]- 3803 Nov, [facility] [place] [facility] [address] [id number] [place] [address]- 6950 Nov, [facility] [place] [facility] [address] [id number] [place] [address]- 2850 Oct, [facility] [place] [facility] [address] [id number] [place] [address]- 0020 Oct, [facility] [place] [facility] [address] [id number] [place] [address]- 2781 Oct, [facility] [place] [facility] [address] [id number] [place] [address]- 9799 Oct, [facility] [place] [facility] [address] [id number] [place] [address]- 3487 Oct, [facility] [place] [facility] [address] [id number] [place] [address]- 3036 Oct, [facility] [place] [facility] [address] [id number] [place] [address]- 2250 Oct, [facility] [place] [facility] [address] [id number] [place] [address]- 7971 Oct, [facility] [place] [facility] [address] [id number] [place] [address]- 0925 Oct, [facility] [place] [facility] [address] [id number] [place] [address]- 3761 Oct, [facility] [place] [facility] [address] [id number] [place] [address]- 5218 Oct, [facility] [place] [facility] [address] [id number] [place] [address]- 8074 Oct, [facility] [place] [facility] [address] [id number] [place] [address]- 1364 September, [facility] [place] [facility] [address] [id number] [place] [address]- 1538 September, [facility] [place] [facility] [address] [id number] [place] [address]- 4997 September, [facility] [place] [facility] [address] [id number] [place] [address]- 5736 September, [facility] [place] [facility] [address] [id number] [place] [address]- 9170 Aug, [facility] [place] [facility] [address] [id number] [place] [address]- 0121 Aug, [facility] [place] [facility] [address] [id number] [place] [address] Aug, [facility] [place] [facility] [address] [id number] [place] [address] 22 Aug, 2013 [facility] [place] [facility] [address] [id number] [place] [address] 18 Aug, 2013 [facility] [place] [facility] [address] [id number] [place] [address] Aug, [facility] [place] [facility] [address] [id number] [place] [address] Aug, [facility] [place] [facility] [address] [id number] [place] [address] Jul, [facility] [place] [facility] [address] [id number] [place] [address] Jul, [facility] [place] [facility] [address] [id number] [place] [address] Jul, [facility] [place] [facility] [address] [id number] [place] [address] Jul, [facility] [place] [facility] [address] [id number] [place] [address] Jul, [facility] [place] [facility] [address] [id number] [place] [address] Jul, [facility] [place] [facility] [address] [id number] [place] [address] Jul, [facility] [place] [facility] [address] [id number] [place] [address] Jul, [facility] [place] [facility] [address] [id number] [place] [address] Jul, [facility] [place] [facility] [address] [id number] [place] [address] Jul, [facility] [place] [facility] [address] [id number] [place] [address]- [address] 18 Jul, 2013 [facility] [place] [facility] [address] [id number] [place] [address]- [address] 18 Jul, 2013 [facility] [place] [facility] [address] [id number] [place] [address]- [address] 14 Jul, 2013 [facility] [place] [facility] [address] [id number] [place] [address] 14 Jul, 2013 [facility] [place] [facility] [address] [id number] [place] [address] Jul, [facility] [place] [facility] [address] [id number] [place] [address] Jul, [facility] [place] [facility] [address] [id number] [place] [address] Jul, [facility] [place] [facility] [address] [id number] [place] [address] Jul, [facility] [place] [facility] [address] [id number] [place] [address] Jun, [facility] [place] [facility] [address] [id number] [place] [address]- [address] 31 Jun, 2013 [facility] [place] [facility] [address] [id number] [place] [address]- [address] 15 Jun, 2013 [facility] [place] [facility] [address] [id number] [place] [address]- [address] 15 Jun, 2013 [facility] [place] [facility] [address] [id number] [place] [address]- [address] 14 Jun, 2013 [facility] [place] [facility] [address] [id number] [place] [address]- [address] 14 Jun, 2013 [facility] [place] [facility] [address] [id number] [place] [address]- [address] 14 Jun, 2013 [facility] [place] [facility] [address] [id number] [place] [address]- [address] 14 Jun, 2013 [facility] [place] [facility] [address] [id number] [place] [address]- [address] 14 Jun, 2013 [facility] [place] [facility] [address] [id number] [place] [address]- [address] 14 Jun, 2013 [facility] [address] [id number] [place] [address] 27 May, 2013 [facility] [place] [facility] [address] [id number] [place] [address]- [address] 27 May, 2013 [facility] [address] [id number] [place] [address] 26 May, 2013 [facility] [address] [id number] [place] [address] 19 May, 2013 [facility] [place] [facility] [address] [id number] [place] [address] 19 May, 2013 [facility] [address] [id number] [place] [address] 16 May, 2013 [facility] [address] [id number] [place] [address] 16 May, 2013 [facility] [address] [id number] [place] [address] 16 May, 2013 [facility] [place] [facility] [address] [id number] [place] [address] 16 May, 2013 [facility] [place] [facility] [address] [address] [id number] [place] [address] 13 May, 2013 [facility] [place] [facility] [address] [id number] [place] [address] 45[address] 13 May, 2013 [facility] [place] [facility] [address] [id number] [place] [address] 2140 11 May, 2013 [facility] [place] [facility] [address] [id number] [place] [address] 3860 20 Apr, 2013 [facility] [place] [facility] [address] [id number] [place] [address]- 3081 18 Apr, 2013 [facility] [place] [facility] [address] [id number] [address] 33[address] Apr, [facility] [place] [facility] [address] [id number] [place] [address]- 3075 Apr, [facility] [place] [facility] [address] [id number] [place] [address]- 7263 Apr, [facility] [place] [facility] [address] [id number] [place] [address]- 8[address] 08 Apr, 2013 [facility] [place] [facility] [address] [id number][place] [address] 08 Apr, 2013 [facility] [place] [facility] [address] [id number] [place] [address]- 7209 Apr, [facility] [place] [facility] [address] [id number] [address] 2805 Apr, [facility] [place] [facility] [address] [id number], [place] [address] 37[address] Apr, [facility] [place] [facility] [address] [id number][place] [address]- 36[address] Apr, [facility] [place] [facility] [address] [id number] [address]- 0619 Mar, [facility] [place] [facility] [address] [id number], [place] [address] 0[address] Mar, [facility] [place] [facility] [address] [id number], [place] [address] 4470 Mar, [facility] [place] [facility] [address] [id number][place] [address] 97[address] Mar, [facility] [place] [facility] [address] [id number] [address]- 8017 Mar, [facility] [place] [facility] [address] [id number], [place] [address]- 2613 Mar, [facility] [place] [facility] [address] [id number], [place] [address] 4310 Mar, [facility] [place] [facility] [address] [id number] [place] [address]- 1701 18 Mar, 2013 [facility] [address] [id number] [place] [address]- 9977 18 Mar, 2013 [facility] [place] [facility] [address] [id number] [place] [address]- 2516 15 Mar, 2013 [facility] [address] [id number] [place] [address]- 6439 15 Mar, 2013 [facility] [place] [facility] [address] [id number] [place] [address]- 4169 Mar, [facility] [place] [facility] [address] [id number] [place] [address]- 8984 30 Jan, 2013 [facility] [place] [facility] [address] [id number] [place] [address]- 7767 Jan, [facility] [place] [facility] [address] [id number] [place] [address]- 3684 Jan, [facility] [place] [facility] [address] [id number] [place] [address]- 7592 Jan, [facility] [place] [facility] [address] [id number] [place] [address]- 5521 Dec, [facility] [address] [id number] [place] [address]- 3184 Dec, [facility] [place] [facility] [address] [id number] [place] [address]- 2545 Dec, [facility] [place] [facility] [address] [id number] [place] [address]- 2547 Dec, [facility] [place] [facility] [address] [id number] [place] [address]- 1314 Dec, [facility] [place] [facility] [address] [id number] [place] [address]- 2543 Dec, [facility] [place] [facility] [address] [id number] [place] [address]- 9843 Dec, [facility] [place] [facility] [address] [id number] [place] [address]- 8263 Dec, [facility] [place] [facility] [address] [id number] [place] [address]- 5440 Dec, [facility] [place] [facility] [address] [id number] [place] [address]- 8113 Nov, [facility] [place] [facility] [address] [id number] [place] [address]- 7542 Nov, [facility] [place] [facility] [address] [id number] [place] [address]- 4867 Nov, [facility] [place] [facility] [address] [id number] [place] [address]- 8445 Nov, [facility] [place] [facility] [address] [id number] [place] [address]- 5716 Nov, [facility] [place] [facility] [address] [id number] [place] [address]- 2470 Nov, [facility] [place] [facility] [address] [id number] [place] [address]- 0468 Nov, [facility] [place] [facility] [address] [id number] [place] [address]- 3277 Nov, [facility] [place] [facility] [address] [id number] [place] [address]- 2959 Oct, [facility] [place] [facility] [address] [id number] [place] [address]- 9039 Oct, [facility] [place] [facility] [address] [id number] [place] [address]- 5950 Oct, [facility] [place] [facility] [address] [id number] [place] [address]- 6911 Oct, [facility] [place] [facility] [address] [id number] [place] [address]- 7730 Oct, [facility] [place] [facility] [address] [id number] [place] [address]- 3141 Oct, [facility] [address] [id number] [place] [address]- 2766 20 Oct, 2012 [facility] [place] [facility] [address] [id number] [place] [address]- 0525 20 Oct, 2012 [facility] [address] [id number] [place] [address]- 2288 19 Oct, 2012 [facility] [place] [facility] [address] [id number] [place] [address]- 9975 18 Oct, 2012 [facility] [address] [id number] [place] [address]- 9566 17 Oct, 2012 [facility] [address] [id number] [place] [address]- 8418 14 Oct, 2012 [facility] [address] [id number] [place] [address]- 5211 07 Oct, 2012 [facility] [place] [facility] [address] [id number] [place] [address]- 3991 30 Sep, 2012 [facility] [address] [id number] [place] [address]- 2879 22 Sep, 2012 [facility] [place] [facility] [address] [id number] [place] [address]- 5641 15 Sep, 2012 [facility] [address] [id number] [place] [address]- 2057 25 Aug, 2012 [facility] [place] [facility] [address] [id number] [place] [address]- 6728 24 Aug, 2012 [facility] [place] [facility] [address] [id number] [place] [address]- 2021 18 Aug, 2012 [facility] [place] [facility] [address] [id number] [place] [address]- 0102 18 Aug, 2012 [facility] [place] [facility] [address] [id number] [place] [address]- 3536 18 Aug, 2012 [facility] [place] [facility] [address] [id number] [place] [address]- 2461 08 Aug, 2012 [facility] [place] [facility] [address] [id number] [place] [address]- 0858 Aug, [facility] [place] [facility] [address] [id number] [place] [address]- 4136 Jul, [facility] [place] [facility] [address] [id number] [place] [address]- 2138 Jul, [facility] [place] [facility] [address] [id number] [place] [address]- 1138 Jul, [facility] [place] [facility] [address] [id number] [place] [address]- 2601 Jul, [facility] [place] [facility] [address] [facility] [id number] [place] [address]- 8537 Jul, [facility] [place] [facility] [address] [id number] [place] [address]- 8673 Jul, [facility] [place] [facility] [address] [id number] [place] [address]- 4204 Jul, [facility] [place] [facility] [address] [facility] [id number] [place] [address]- 1306 Jul, [facility] [place] [facility] [address] [facility] [id number] [place] [address]- 8282 Jul, [facility] [place] [facility] [address] [facility] [id number], [place] [address]- 6747 Jul, [facility] [place] [facility] [address] [facility] [id number] [place] [address]- 0065 Jul, [facility] [place] [facility] [address] [id number] [place] [address]- 6335 Jul, [facility] [place] [facility] [address] [facility] [id number] [place] [address]- 7491 Jul, [facility] [place] [facility] [address] [facility] [id number], [place] [address]- 3613 24 Jun, 2012 [facility] [address] [id number] [place] [address]- 3715 Jun, [facility] [address] [id number] [place] [address]- 8347 19 Jun, 2012 [facility] [address] [id number] [place] [address]- 8916 17 Jun, 2012 [facility] [address] [id number] [place] [address]- 1186 15 Jun, 2012 [facility] [address] [id number] [place] [address]- 6361 14 Jun, 2012 [facility] [address] [id number] [place] [address]- 3183 08 Jun, 2012 [facility] [address] [id number] [place] [address]- 3482 28 May, 2012 [facility] [address] [id number] [place] [address]- 7200 May, [facility] [address] [id number] [place] [address]- 5185 May, [facility] [address] [id number] [place] [address]- 9114 May, [facility] [address] [id number] [place] [address]- 2772 May, [facility] [place] [facility] [address] [id number] [place] [address]- 2992 May, [facility] [place] [facility] [address] [id number] [place] [address]- 5702 May, [facility] [place] [facility] [address] [id number] [place] [address]- 6364 May, [facility] [place] [facility] [address] [id number] [place] [address]- 9653 May, [facility] [place] [facility] [address] [id number] [place] [address]- 5541 May, [facility] [place] [facility] [address] [id number] [place] [address]- 8864 Apr, [facility] [place] [facility] [address] [id number] [place] [address]- 5641 Apr, [facility] [place] [facility] [address] [id number] [place] [address]- 4249 Apr, [facility] [place] [facility] [address] [id number] [place] [address]- 5096 Apr, [facility] [place] [facility] [address] [id number] [place] [address]- 2069 Apr, [facility] [place] [facility] [address] [id number] [place] [address]- 6396 Apr, [facility] [place] [facility] [address] [id number] [place] [address]- 3722 Apr, [facility] [place] [facility] [address] [id number] [place] [address]- 9570 Apr, [facility] [place] [facility] [address] [id number] [place] [address]- 8727 Apr, [facility] [place] [facility] [address] [facility] [id number] [place] [address]- 3627 Apr, [facility] [place] [facility] [address] [id number] [place] [address]- 2077 Apr, [facility] [place] [facility] [address] [id number] [place] [address]- 1064 Apr, [facility] [place] [facility] [address] [id number] [place] [address]- 4908 Mar, [facility] [place] [facility] [address] [id number] [place] [address]- 6409 Mar, [facility] [place] [facility] [address] [id number] [place] [address]- 1682 Mar, 2011 [facility] [place] [facility] [address] [id number] [place] [address]- 8063 Mar, 2011 [facility] [place] [facility] [address] [id number] [place] [address]- 7059 Mar, 2011 [facility] [place] [facility] [address] [id number] [place] [address]- 2706 Mar, 2011 [facility] [place] [facility] [address] [id number] [place] [address]- 0184 Mar, 2011 [facility] [place] [facility] [address] [id number] [place] [address]- 2315 Mar, [facility] [place] [facility] [address] [id number] [place] [address]- 2137 Mar, [facility] [place] [facility] [address] [id number] [place] [address]- 2980 Mar, [facility] [place] [facility] [address] [id number] [address]- 3762 Mar, [facility] [place] [facility] [address] [id number], [place] [address]- 7637 Mar, [facility] [place] [facility] [address] [id number], [place] [address]- 3035 Mar, [facility] [place] [facility] [address] [id number], [place] [address]- 3006 Mar, [facility] [place] [facility] [address] [id number], [place] [address]- 8816 Mar, [facility] [place] [facility] [address] [id number], [place] [address]- 0856 Mar, [facility] [place] [facility] [address] [id number] 7971 Jan, [facility] [place] [facility] [address] [id number], [place] [address]- 3710 24 Jan, 2012 [facility] [place] [facility] [address] [id number] [place] [address]- 4594 22 Jan, 2011 [facility] [place] [facility] [address] [id number] [place] [address]- 5456 22 Jan, 2011 [facility] [place] [facility] [address] [id number] [place] [address]- 2366 21 Jan, 2012 [facility] [place] [facility] [address] [id number] [place] [address]- 9856 18 Jan, 2011 [facility] [place] [facility] [address] [id number] [place] [address]- 1535 14 Jan, 2012 [facility] [place] [facility] [address] [id number] [place] [address]- 2731 07 Jan, 2012 [facility] [place] [facility] [address] [id number] [place] [address]- 1662 15 Dec, 2011 [facility] [place] [facility] [address] [id number] [place] [address]- 4552 10 Dec, 2011 [facility] [place] [facility] [address] [id number] [place] [address]- 3498 Dec, [facility] [place] [facility] [address] [id number] [place] [address]- 0439 Dec, [facility] [place] [facility] [address] [id number] [place] [address]- 0950 Dec, [facility] [place] [facility] [address] [id number] [place] [address]- 5964 Dec, [facility] [place] [facility] [address] [id number] [place] [address]- 9425 Dec, [facility] [place] [facility] [address] [id number] [place] [address]- 2209 Nov, [facility] [place] [facility] [address] [id number] [place] [address]- 5208 Oct, [facility] [place] [facility] [address] [id number] [place] [address]- 2392 Aug, [facility] [place] [facility] [address] [id number] [place] [address]- 7507 22 Jul, 2011 [facility] [place] [facility] [address] [id number] [place] [address]- 9656 19 Jul, 2011 [facility] [place] [facility] [address] [id number] [place] [address]- 0406 16 Jul, 2011 [facility] [place] [facility] [address] [id number] [place] [address]- 3089 14 Jul, 2011 [facility] [place] [facility] [address] [id number] [place] [address]- 2584 07 Jul, 2011 [facility] [place] [facility] [address] [id number] [place] [address]- 9560 02 Jul, 2011 [facility] [place] [facility] [address] [id number] [place] [address]- 7688 21 Jul, 2011 [facility] [place] [facility] [address] [id number] [place] [address]- 8801 15 Jul, 2011 [facility] [place] [facility] [address] [id number] [place] [address]- 3649 13 Jul, 2011 [facility] [place] [facility] [address] [facility] [id number] [place] [address]- 6395 03 Jul, 2011 [facility] [place] [facility] [address] [id number] [place] [address]- 7770 02 Jul, 2011 [facility] [place] [facility] [address] [id number] [place] [address]- 8949 24 Jun, 2011 [facility] [place] [facility] [address] [id number] [place] [address]- 8204 24 Jun, 2011 [facility] [place] [facility] [address] [id number] [place] [address]- 3296 13 Jun, 2011 [facility] [place] [facility] [address] [id number] [place] [address]- 5592 Jun, [facility] [place] [facility] [address] [id number], [place] [address]- 5328 Jun, [facility] [address] [id number] [place] [address]- 3918 Jun, [facility] [place] [facility] [address] [id number] [place] [address]- 3333 Jun, [facility] [address] [id number] [place] [address]- 2961 May, [facility] [address] [id number] [place] [address]- 6216 May, [facility] [address] [id number] [place] [address]- 8500 May, [facility] [place] [facility] [address] [id number] [place] [address]- 7491 May, [facility] [address] [id number] [place] [address]- 4038 May, [facility] [place] [facility] [address] [id number] [place] [address]- 7287 May, [facility] [address] [id number] [place] [address]- 0456 May, [facility] [place] [facility] [address] [id number] [place] [address]- 2958 May, [facility] [address] [id number] [place] [address]- 1530 May, [facility] [place] [facility] [address] [id number], [place] [address]- 0274 May, [facility] [place] [facility] [address] [id number] [place] [address]- 7860 Apr, [facility] [place] [facility] [address] [id number] [place] [address]- 5221 15 Apr, 2011 [facility] [place] [facility] [address] [facility] [id number] [place] [address]- 1059 Apr, [facility] [place] [facility] [address] [facility] [id number], [place] [address]- 1589 Apr, [facility] [address] [facility] [id number], [place] [address]- 3066 Mar, [facility] [address] [id number], [place] [address]- 3952 Mar, [facility] [address] [facility] [id number], [place] [address]- 0181 Mar, [facility] [address] [facility] [id number], [place] [address]- 7571 Mar, IMMUNIZATIONS No Known Immunizations SOCIAL HISTORY Never Assessed REASON FOR VISIT Constipation x 4-5 days, took mag citrate x 2 and did not have a BM, Used glycerin suppositories and enema still no BM. [facility] PLAN OF CARE Activity Details Follow Up prn Reason: VITAL SIGNS Height 62 in 2017-01-23 Weight 159.5 lbs 2017-01-23 Temperature 98.0 degrees Fahrenheit 2017-01-23 Heart Rate 120 bpm 2017-01-23 Respiratory Rate 20 2017-01-23 BMI 29.17 kg/m2 2017-01-23 Blood pressure systolic 130 mmHg 2017-01-23 Blood pressure diastolic 76 mmHg 2017-01-23 MEDICATIONS Medication Instructions Dosage Frequency Start Date End Date Duration Status Trazodone HCl 150 MG TAKE 1 TABLET ONE TIME AT BEDTIME FOR SLEEP Active Quetiapine Fumarate 200 mg TAKE 1 TABLET ONE TIME DAILY AT BEDTIME FOR SLEEP Active Milk of Magnesia 1200 MG/15ML Orally 3 times a day for constipation 10 ml Dec, Dec, 03 days Active Hydrocodone-Acetaminophen 10-325 MG Orally every 6 hrs 1 tablet as needed 6h Active Alprazolam 1MG Orally 2 times a day as needed for anxiety 1 tablet 30 days Active ProAir HFA 90 mcg/actuation 2 puffs by Inhalation route 4 times per dayPRN Apr, Active Omeprazole 20 mg take 1 capsule (20 mg) by oral route once daily before a meal Apr, Active Polyethylene Glycol 3350 - Orally take if no BM in 2 days then take daily until stools are soft 1 scoop Dec, Active Metoprolol Tartrate 50 mg Orally Twice a day /2 tab 12h 10 Jul, 2016 30 day(s) Active Gabapentin 800MG Orally Three times a day 1.5 tablet 8h Active RESULTS No Results PROCEDURES No Known procedures INSTRUCTIONS MEDICATIONS ADMINISTERED No Known Medications MEDICAL (GENERAL) HISTORY Type Description Date Medical History fibromyalgia Medical History seizures Medical History anxiety Medical History Pseudo seizures Medical History tachycrdia Medical History HPV- Cancer Surgical History cholecystectomy Surgical History tubal ligation Surgical History hysterectomy Surgical History tonsillectomy Surgical History carpal tunnel release Surgical History breast reduction Surgical History Bladder sling/stretch 06/2016 Hospitalization History surgeries Hospitalization History ER for seizures 03/24/16
--- NOTE | 2017-10-27 09:32 | Progress Note-Pre Operative ---
Pre-Operative Progress Note H&P Reviewed The H&P was reviewed, patient examined and no changes noted. Date Seen by Provider: October 27, 2017 Time Seen by Provider: 09:31 Date H&P Reviewed: October 27, 2017 Time H&P Reviewed: 09:31 Pre-Operative Diagnosis: chronic diarrhea, b/l lower quadrant abdominal pain NETTIE HAHN DO October 27, 2017 09:32
[2017-10-27] MEDS ORDERED: LACTATED RINGERS 1,000 ML IV ONE (09:34)
--- OUTSIDE RECORDS SUMMARY | 2017-10-27 09:35 | XMS REPORT ---
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 Name Role Phone SABIHA MAST Unavailable PROBLEMS Type Condition ICD9-CM Code LFU10-JY Code Onset Dates Condition Status SNOMED Code Problem FRANCIS (generalized anxiety disorder) F41.1 Active 97303343 Problem Thoracic disc herniation M51.24 Active 836877812 Problem Major depressive disorder in partial remission F32.4 Active 50376463 Problem Mild episode of recurrent major depressive disorder F33.0 Active 009898045 Problem Constipation, unspecified constipation type K59.00 Active 06483345 Problem Seizure disorder G40.909 Active 875530597 Problem Conversion disorder (or hysterical neurosis, conversion type) F44.9 Active 39495053 Problem Slow transit constipation K59.01 Active 21397977 Problem Paroxysmal tachycardia I47.9 Active [id number] ALLERGIES No Information ENCOUNTERS Encounter Location Date Diagnosis [facility] [id number] [place] [address] 72516- 3990 September, [facility] [id number] [place] [address] 13360- 8082 Jul, [facility] [address] 07788- 3013 Jul, Dorsalgia, unspecified M54.9 [facility] [id number] [place] [address] 84526- 0604 Jul, Mild episode of recurrent major depressive disorder F33.0 and FRANCIS (generalized anxiety disorder) F41.1 [facility] [id number] [place] [address] 58104- 4672 May, [facility] [address] 61892 -2214 May, Dysuria R30.0 and Acute cystitis with hematuria N30.01 [facility] [id number] [place] [address] 56496- 3703 Apr, [facility] [id number] [place] [address] 33965- 3206 Apr, Major depressive disorder in partial remission F32.4 and FRANCIS (generalized anxiety disorder) F41.1 [facility] [id number] [place] [address] 95256- 2748 Mar, Paroxysmal tachycardia I47.9 [facility] [id number] [place] [address] 09257- 6996 Mar, Paroxysmal tachycardia I47.9 and Pain of left lower extremity M79.605 [facility] [id number] [place] [address] 05021- 8989 Mar, FRANCIS (generalized anxiety disorder) F41.1 and Major depressive disorder in partial remission F32.4 [facility] [id number] [place] [address] 60903- 7309 Jan, [facility] [id number] [place] [address] 31771- 0678 Jan, [facility] [id number] [place] [address] 97968- 2817 Jan, [facility] [id number] [place] [address] 11036 -5570 Dec, Constipation, unspecified constipation type K59.00 [facility] [id number] [place] [address] 64774- 3111 Dec, [facility] [id number] [place] [address] 19580- 0426 Nov, [facility] [id number] [place] [address] 07268- 4105 Nov, Major depressive disorder in partial remission F32.4 and FRANCIS (generalized anxiety disorder) F41.1 [facility] [id number] [place] [address] 66694 -9081 Oct, Abdominal pain R10.9 and Slow transit constipation K59.01 [facility] [id number] [place] [address] 38369- 4877 Aug, Major depressive disorder in partial remission F32.4 ; FRANCIS ( generalized anxiety disorder) F41.1 ; Conversion disorder (or hysterical neurosis, conversion type) F44.9 ; Dorsalgia, unspecified M54.9 and Long-term use of high-risk medication Z79.899 [place] [address] 70756- 3662 Aug, [place] [address] 39292- 3109 Jul, Paroxysmal tachycardia I47.9 [place] [address] 87674- 9741 Jul, Paroxysmal tachycardia I47.9 [place] [address] 84799- 6900 Jun, [place] [address] 13375- 6748 Jun, Major depressive disorder in partial remission F32.4 ; FRANCIS ( generalized anxiety disorder) F41.1 and Conversion disorder (or hysterical neurosis, conversion type) F44.9 [facility] [id number] [place] [address] 72659 -5766 May, Pelvic pain R10.2 [facility] [address] 10078 -7029 Apr, Gastroenteritis K52.9 [facility] [address] 15798 -0469 Apr, Blood in urine R31.9 and Acute cystitis with hematuria N30.01 [place] [address] 06775- 5291 Apr, Major depressive disorder in partial remission F32.4 ; FRANCIS ( generalized anxiety disorder) F41.1 and Conversion disorder (or hysterical neurosis, conversion type) F44.9 [facility] [id number] [place] [address] 96210- 1976 Apr, [facility] [id number] [place] [address] 78453- 3059 Apr, Abnormal mammogram R92.8 [facility] [id number] [place] [address] 42967- 9507 Mar, [facility] [address] 04187- 7563 Mar, Gastroenteritis K52.9 and Seizure disorder G40.909 [facility] [id number] [place] [address] 15087- 5905 Dec, [facility] [id number] [place] [address] 06948 -0053 Dec, Other headache syndrome G44.89 [facility] [address] 34057- 4975 Dec, [facility] [id number] [place] [address] 59288- 5427 Dec, Thoracic disc herniation M51.24 [facility] [id number] [place] [address] 30879- 6585 Dec, [facility] [id number] [place] [address] 03718- 5968 Nov, Major depressive disorder in partial remission F32.4 and FRANCIS (generalized anxiety disorder) F41.1 [facility] [id number] [place] [address] 04002- 5471 Nov, [facility] [id number] [place] [address] 75612- 5064 Nov, Dorsalgia, unspecified M54.9 [facility] [address] [address]- 6558 Oct, [facility] [id number] [place] [address] 53442- 4296 September, [facility] [address] [address]- 7046 Aug, [facility] [id number] [place] [address] 96674- 3988 Aug, Major depressive disorder in partial remission F32.4 and FRANCIS (generalized anxiety disorder) F41.1 [facility] [id number] [place] [address] 25961- 2881 Aug, [facility] [address] [address]- 0560 Jul, Abnormal mammogram R92.8 [facility] [id number] [address]- 1110 Jul, [facility] [address] [address]- 5692 Jul, [facility] [id number] [place] [address] 12253- 1878 Jul, [facility] [address] [address]- 8524 Jul, [facility] [address] [address]- 1581 Jul, [facility] [id number] [address]- 5051 Jul, [facility] [address] [address]- 8943 Jun, Major depressive disorder in partial remission F32.4 and FRANCIS (generalized anxiety disorder) F41.1 [facility] [address] [address]- 3717 Jun, [facility] [address] [facility] [id number] [place] [address]- 0696 May, [facility] [id number] [place] [address] 30644- 4489 Apr, [facility] [id number] [address]- 4860 Mar, Major depressive disorder, recurrent episode, moderate F33.1 ; PTSD (post-traumatic stress disorder) F43.10 and FRANCIS (generalized anxiety disorder) F41.1 [facility] [id number] [address]- 7722 Mar, [facility] [id number] [place] [address] 59636- 1826 Mar, [facility] [id number] [place] [address] 57250- 6365 Mar, [facility] [id number] [place] [address] 26789- 1010 Mar, [facility] [address] [address]- 9658 Jan, [facility] [id number] [place] [address] 39603- 8137 15 Jan, 2015 [facility] [address] [address]- 6366 15 Jan, 2015 [facility] [id number] [place] [address] 69933- 3120 14 Jan, 2015 Thoracic disc herniation 722.11 [facility] [address] [address]- 1584 Dec, [facility] [id number] [address]- 8146 Dec, [facility] [address] [address]- 7336 Dec, [facility] [id number] [address]- 6176 16 Nov, 2014 [facility] [id number] [address]- 3249 Nov, Generalized anxiety disorder 300.02 ; Posttraumatic stress disorder 309.81 and Major depressive disorder, recurrent episode, moderate 296.32 [facility] [address] [address]- 0886 Nov, [facility] [address] [facility] [id number] [place] [address]- 1526 Nov, [facility] [id number] [address]- 8865 Oct, [facility] [id number] [address]- 4696 Oct, [facility] [address] [address]- 1736 Oct, [facility] [address] [address]- 3823 September, [facility] [address] [address]- 8698 September, [facility] [address] [address]- 9762 Aug, [facility] [id number] [address]- 4982 Aug, [facility] [id number] [address]- 6566 Jul, [facility] [id number] [address]- 3326 Jul, [facility] [id number] [address]- 7126 Jul, [facility] [id number] [address]- 8326 Jul, [facility] [place] [facility] [address] [id number] [place] [address]- 8549 16 Jul, 2014 [facility] [place] [facility] [address] [id number] [place] [address]- 3071 16 Jul, 2014 [facility] [place] [facility] [address] [id number] [place] [address]- 3352 Jul, 2014 [facility] [place] [facility] [address] [id number] [place] [address]- 4874 Jul, 2014 [facility] [place] [facility] [address] [id number] [place] [address]- 1935 Jul, [facility] [place] [facility] [address] [id number] [place] [address]- 9418 Jul, [facility] [place] [facility] [address] [id number] [place] [address]- 7744 Jun, [facility] [place] [facility] [address] [id number] [place] [address]- 7330 Jun, [facility] [place] [facility] [address] [id number] [place] [address]- 8029 Jun, [facility] [place] [facility] [address] [facility] [id number] [place] [address]- 6458 May, [facility] [place] [facility] [address] [id number] [place] [address]- 6058 Apr, [facility] [place] [facility] [address] [id number] [place] [address]- 7272 Apr, [facility] [place] [facility] [address] [id number] [place] [address]- 5013 Apr, [facility] [place] [facility] [address] [id number] [place] [address]- 6460 Apr, [facility] [place] [facility] [address] [id number] [place] 0265 Apr, [facility] [place] [facility] [address] [id number] [place] [address]- 4632 Apr, [facility] [place] [facility] [address] [id number] [place] [address]- 5356 Apr, [facility] [place] [facility] [address] [id number] [place] [address]- 3856 Apr, [facility] [place] [facility] [address] [id number] [place] [address]- 2955 Mar, [facility] [place] [facility] [address] [id number] [place] [address]- 7823 Mar, [facility] [place] [facility] [address] [id number] [place] [address]- 8037 Mar, [facility] [place] [facility] [address] [id number] [place] [address]- 8510 Mar, [facility] [place] [facility] [address] [id number] [place] [address]- 7010 Mar, [facility] [place] [facility] [address] [id number] [place] [address]- 0647 Mar, [facility] [place] [facility] [address] [id number] [place] [address]- 0760 Mar, [facility] [place] [facility] [address] [id number] [place] [address]- 6016 Mar, [facility] [place] [facility] [address] [id number] [place] [address]- 9415 Mar, [facility] [place] [facility] [address] [id number] [place] [address]- 1524 Mar, [facility] [place] [facility] [address] [id number] [place] [address]- 3022 17 Mar, 2014 [facility] [place] [facility] [address] [id number] [place] [address]- 5154 14 Mar, 2014 [facility] [place] [facility] [address] [id number] [place] [address]- 7892 14 Mar, 2014 [facility] [place] [facility] [address] [id number] [place] [address]- 5583 07 Mar, 2013 [facility] [place] [facility] [address] [id number] [place] [address]- 9892 07 Mar, 2013 [facility] [place] [facility] [address] [id number] [place] [address]- 9535 06 Mar, 2013 [facility] [place] [facility] [address] [id number] [place] [address]- 0175 06 Oct, 2013 [facility] [place] [facility] [address] [id number] [place] [address]- 8853 19 Sep, 2013 [facility] [place] [facility] [address] [id number] [place] [address]- 7182 19 Sep, 2013 [facility] [place] [facility] [address] [id number] [place] [address]- 2335 09 Sep, 2013 [facility] [place] [facility] [address] [id number] [place] [address]- 1811 09 Sep, 2013 [facility] [place] [facility] [address] [id number] [place] [address]- 2543 05 Sep, 2013 [facility] [place] [facility] [address] [id number] [place] [address]- 2544 05 Sep, 2013 [facility] [place] [facility] [address] [id number] [place] [address]- 3842 05 Sep, 2013 [facility] [place] [facility] [address] [id number] [place] [address]- 2547 05 Sep, 2013 [facility] [place] [facility] [address] [id number] [place] [address]- 2542 03 Sep, 2013 [facility] [place] [facility] [address] [id number] [place] [address]- 9745 02 Sep, 2013 [facility] [place] [facility] [address] [id number] [place] [address]- 7033 02 Sep, 2013 [facility] [place] [facility] [address] [id number] [place] [address]- 6891 Jan, [facility] [address] [id number] [place] [address]- 0431 Jan, [facility] [address] [id number] [place] [address]- 6068 Dec, [facility] [address] [id number] [place] [address]- 2660 Dec, [facility] [address] [id number] [place] [address]- 0804 Dec, [facility] [address] [id number] [place] [address]- 2648 Dec, [facility] [address] [id number] [place] [address]- 0035 Dec, [facility] [address] [id number] [place] [address]- 2834 Dec, [facility] [id number] Dec Via [facility] [id number] Dec [facility] [address] [id number] [place] [address]- 0215 Dec, [facility] [address] [id number] [place] [address]- 1894 Dec, [facility] [place] [facility] [address] [id number] [place] [address]- 2423 Dec, [facility] [place] [facility] [address] [id number] [place] [address]- 6311 Dec, [facility] [place] [facility] [address] [id number] [place] [address]- 3154 Nov, [facility] [place] [facility] [address] [id number] [place] [address]- 8658 Nov, [facility] [place] [facility] [address] [id number] [place] [address]- 1824 Nov, [facility] [place] [facility] [address] [id number] [place] [address]- 2249 Nov, [facility] [place] [facility] [address] [id number] [place] [address]- 9231 Nov, [facility] [place] [facility] [address] [id number] [place] [address]- 6753 Nov, [facility] [place] [facility] [address] [id number] [place] [address]- 8194 Nov, [facility] [place] [facility] [address] [id number] [place] [address]- 2978 Nov, [facility] [place] [facility] [address] [id number] [place] [address]- 0430 Nov, [facility] [place] [facility] [address] [id number] [place] [address]- 5074 Nov, [facility] [place] [facility] [address] [id number] [place] [address]- 3138 Nov, [facility] [place] [facility] [address] [id number] [place] [address]- 0978 Nov, [facility] [place] [facility] [address] [id number] [place] [address]- 1493 Nov, [facility] [place] [facility] [address] [id number] [place] [address]- 8529 Oct, [facility] [place] [facility] [address] [id number] [place] [address]- 2243 Oct, [facility] [place] [facility] [address] [id number] [place] [address]- 9032 Oct, [facility] [place] [facility] [address] [id number] [place] [address]- 5046 Oct, [facility] [place] [facility] [address] [id number] [place] [address]- 4545 Oct, [facility] [place] [facility] [address] [id number] [place] [address]- 0899 Oct, [facility] [place] [facility] [address] [id number] [place] [address]- 2707 Oct, [facility] [place] [facility] [address] [id number] [place] [address]- 7809 Oct, [facility] [place] [facility] [address] [id number] [place] [address]- 7332 Oct, [facility] [place] [facility] [address] [id number] [place] [address]- 4081 Oct, [facility] [place] [facility] [address] [id number] [place] [address]- 8689 Oct, [facility] [place] [facility] [address] [id number] [place] [address]- 5577 Oct, [facility] [place] [facility] [address] [id number] [place] [address]- 0596 September, [facility] [place] [facility] [address] [id number] [place] [address]- 5822 September, [facility] [place] [facility] [address] [id number] [place] [address]- 9873 September, [facility] [place] [facility] [address] [id number] [place] [address]- 6771 September, [facility] [place] [facility] [address] [id number] [place] [address] Aug, [facility] [place] [facility] [address] [id number] [place] [address] Aug, [facility] [place] [facility] [address] [id number] [place] [address] Aug, [facility] [place] [facility] [address] [id number] [place] [address] Aug, [facility] [place] [facility] [address] [id number] [place] [address] Aug, [facility] [place] [facility] [address] [id number] [place] [address] 10 Aug, 2013 [facility] [place] [facility] [address] [id number] [place] [address] 10 Aug, 2013 [facility] [place] [facility] [address] [id number] [place] [address] 28 Jul, 2013 [facility] [place] [facility] [address] [id number] [place] [address] 28 Jul, 2013 [facility] [place] [facility] [address] [id number] [place] [address] Jul, [facility] [place] [facility] [address] [id number] [place] [address] Jul, [facility] [place] [facility] [address] [id number] [place] [address] Jul, [facility] [place] [facility] [address] [id number] [place] [address] 19 Jul, 2013 [facility] [place] [facility] [address] [id number] [place] [address] 18 Jul, 2013 [facility] [place] [facility] [address] [id number] [place] [address] 18 Jul, 2013 [facility] [place] [facility] [address] [id number] [place] [address] 18 Jul, 2013 [facility] [place] [facility] [address] [id number] [place] [address] 18 Jul, 2013 [facility] [place] [facility] [address] [id number] [place] [address] 18 Jul, 2013 [facility] [place] [facility] [address] [id number] [place] [address] 18 Jul, 2013 [facility] [place] [facility] [address] [id number] [place] [address] 14 Jul, 2013 [facility] [place] [facility] [address] [id number] [place] [address] 14 Jul, 2013 [facility] [place] [facility] [address] [id number] [place] [address] Jul, [facility] [place] [facility] [address] [id number] [place] [address] 11 Jul, 2013 [facility] [place] [facility] [address] [id number] [place] [address] Jul, [facility] [place] [facility] [address] [id number] [place] [address] Jul, [facility] [place] [facility] [address] [id number] [place] [address] Jun, [facility] [place] [facility] [address] [id number] [place] [address] Jun, [facility] [place] [facility] [address] [id number] [place] [address]- [address] 15 Jun, 2013 [facility] [place] [facility] [address] [id number] [place] [address] 15 Jun, 2013 [facility] [place] [facility] [address] [id number] [place] [address] 14 Jun, 2013 [facility] [place] [facility] [address] [id number] [place] [address] 14 Jun, 2013 [facility] [place] [facility] [address] [id number] [place] [address]- [address]69 14 Jun, 2013 [facility] [place] [facility] [address] [id number] [place] [address] 14 Jun, 2013 [facility] [place] [facility] [address] [id number] [place] [address] 14 Jun, 2013 [facility] [place] [facility] [address] [id number] [place] [address]47 14 Jun, 2013 [facility] [place] [facility] [address] [id number] [place] [address] 27 May, 2013 [facility] [place] [facility] [address] [id number] [place] [address] 269[address] 27 May, 2012 [facility] [address] [id number] [place] [address]- [address] 26 May, 2013 [facility] [place] [facility] [address] [id number] [place] [address] 19 May, 2013 [facility] [address] [id number] [place] [address]- [address] 19 May, 2013 [facility] [place] [facility] [address] [id number] [place] [address] 16 May, 2013 [facility] [place] [facility] [address] [id number] [place] [address] 16 May, 2013 [facility] [place] [facility] [address] [id number] [place] [address] 16 May, 2013 [facility] [place] [facility] [address] [id number] [place] [address] 16 May, 2013 [facility] [facility] [address] [id number] [place] [address] 13 May, 2013 [facility] [place] [facility] [address] [id number] [place] [address] 6[address] 13 May, 2013 [facility] [place] [facility] [address] [id number] [place] [address] 4825 11 May, 2013 [facility] [place] [facility] [address] [id number] [place] [address] 8001 20 Apr, 2013 [facility] [place] [facility] [address] [id number] [place] [address]- 5571 18 Apr, 2013 [facility] [place] [facility] [address] [id number] [place] [address] 1247 18 Apr, 2013 [facility] [place] [facility] [address] [id number] [place] [address]- 7404 13 Apr, 2013 [facility] [place] [facility] [address] [id number] [place] [address]- 2031 Apr, [facility] [place] [facility] [address] [id number] [place] [address]- 5209 08 Apr, 2013 [facility] [place] [facility] [address] [id number] [place] [address]- 5726 08 Apr, 2013 [facility] [place] [facility] [address] [id number] [place] [address]- 9567 Apr, [facility] [place] [facility] [address] [id number] [place] [address]- 7005 Apr, [facility] [place] [facility] [address] [id number] [place] [address]- 8934 Apr, [facility] [place] [facility] [address] [id number] [place] [address]- 2098 Apr, [facility] [place] [facility] [address] [id number] [place] [address]- 8072 Mar, [facility] [place] [facility] [address] [id number] [place] [address] 7967 Mar, [facility] [place] [facility] [address] [id number] [place] [address]- 8251 Mar, [facility] [place] [facility] [address] [id number] [place] [address]- 6092 Mar, [facility] [place] [facility] [address] [id number] [place] [address] 5[address] Mar, [facility] [place] [facility] [address] [id number] [place] [address]- 4012 Mar, [facility] [place] [facility] [address] [id number] [place] [address]- 6976 Mar, [facility] [place] [facility] [address] [id number] [place] [address]- 7949 Mar, [facility] [place] [facility] [address] [id number] [place] [address]- 7909 Mar, [facility] [place] [facility] [address] [id number] [place] [address]- 5185 15 Mar, 2013 [facility] [address] [id number] [place] [address]- 8816 15 Mar, 2013 [facility] [place] [facility] [address] [id number] [place] [address]- 2349 Mar, [facility] [place] [facility] [address] [id number] [place] [address]- 5469 30 Jan, 2013 [facility] [place] [facility] [address] [id number] [place] [address]- 1752 25 Jan, 2013 [facility] [place] [facility] [address] [id number] [place] [address]- 6121 20 Jan, 2013 [facility] [place] [facility] [address] [id number] [place] [address]- 6882 Jan, [facility] [place] [facility] [address] [id number] [place] [address]- 5431 Dec, [facility] [place] [facility] [address] [id number] [place] [address]- 2072 Dec, [facility] [place] [facility] [address] [id number] [place] [address]- 7875 Dec, [facility] [place] [facility] [address] [id number] [place] [address]- 5916 Dec, [facility] [place] [facility] [address] [id number] [place] [address]- 1930 Dec, [facility] [place] [facility] [address] [id number] [place] [address]- 254 Dec, [facility] [place] [facility] [address] [id number] [place] [address]- 4196 Dec, [facility] [place] [facility] [address] [id number] [place] [address]- 7470 Dec, [facility] [place] [facility] [address] [id number] [place] [address]- 4833 Dec, [facility] [place] [facility] [address] [id number] [place] [address]- 5887 Nov, [facility] [place] [facility] [address] [id number] [place] [address]- 4277 Nov, [facility] [place] [facility] [address] [id number] [place] [address]- 2171 Nov, [facility] [place] [facility] [address] [id number] [place] [address]- 4309 Nov, [facility] [place] [facility] [address] [id number] [place] [address]- 3054 Nov, [facility] [place] [facility] [address] [id number] [place] [address]- 7937 Nov, [facility] [place] [facility] [address] [id number] [place] [address]- 5531 Nov, [facility] [place] [facility] [address] [id number] [place] [address]- 4869 Nov, [facility] [place] [facility] [address] [id number] [place] [address]- 4596 Oct, [facility] [place] [facility] [address] [id number] [place] [address]- 7699 Oct, [facility] [place] [facility] [address] [id number] [place] [address]- 5987 Oct, [facility] [place] [facility] [address] [id number] [place] [address]- 8208 Oct, [facility] [place] [facility] [address] [id number] [place] [address]- 3279 Oct, [facility] [place] [facility] [address] [id number] [place] [address]- 8401 Oct, [facility] [place] [facility] [address] [id number] [place] [address]- 3220 Oct, [facility] [place] [facility] [address] [id number] [place] [address]- 2222 20 Oct, 2012 [facility] [address] [id number] [place] [address]- 2502 19 Oct, 2012 [facility] [place] [facility] [address] [id number] [place] [address]- 5330 18 Oct, 2012 [facility] [place] [facility] [address] [id number] [place] [address]- 5589 17 Oct, 2012 [facility] [place] [facility] [address] [id number] [place] [address]- 9049 14 Oct, 2012 [facility] [place] [facility] [address] [id number] [place] [address]- 4950 07 Oct, 2012 [facility] [place] [facility] [address] [id number] [place] [address]- 6551 30 Sep, 2012 [facility] [place] [facility] [address] [id number] [place] [address]- 6182 September, [facility] [place] [facility] [address] [id number] [place] [address]- 4867 September, [facility] [place] [facility] [address] [id number] [place] [address]- 8579 25 Aug, 2012 [facility] [place] [facility] [address] [id number] [place] [address]- 9782 24 Aug, 2012 [facility] [place] [facility] [address] [id number] [place] [address]- 5470 18 Aug, 2012 [facility] [place] [facility] [address] [id number] [place] [address]- 2765 18 Aug, 2012 [facility] [place] [facility] [address] [id number] [place] [address]- 9530 18 Aug, 2012 [facility] [place] [facility] [address] [id number] [place] [address]- 1850 08 Aug, 2012 [facility] [place] [facility] [address] [id number] [place] [address]- 3068 05 Aug, 2012 [facility] [place] [facility] [address] [id number] [place] [address]- 7658 Jul, [facility] [address] [id number] [place] [address]- 7802 Jul, [facility] [place] [facility] [address] [id number] [place] [address]- 9208 Jul, [facility] [address] [id number] [place] [address]- 5396 Jul, [facility] [place] [facility] [address] [id number] [place] [address]- 0161 Jul, [facility] [place] [facility] [address] [id number] [place] [address]- 3166 Jul, [facility] [place] [facility] [address] [id number] [place] [address]- 7945 Jul, [facility] [place] [facility] [address] [id number] [place] [address]- 4955 Jul, [facility] [address] [id number] [place] [address]- 3347 Jul, [facility] [place] [facility] [address] [id number] [place] [address]- 9143 Jul[facility] [place] [facility] [address] [facility] [id number] [place] [address]- 4139 Jul, [facility] [place] [facility] [address] [id number] [place] [address]- 4613 Jul, [facility] [place] [facility] [address] [id number] [place] [address]- 9208 Jul, [facility] [place] [facility] [address] [id number] [place] [address]- 8852 Jun, [facility] [place] [facility] [address] [id number] [place] [address]- 6549 Jun, [facility] [place] [facility] [address] [id number] [place] [address]- 9406 19 Jun, 2012 [facility] [address] [id number] [place] [address]- 9126 17 Jun, 2012 [facility] [place] [facility] [address] [id number] [place] [address]- 8606 15 Jun, 2012 [facility] [address] [id number] [place] [address]- 6486 14 Jun, 2012 [facility] [place] [facility] [address] [id number] [place] [address]- 8300 08 Jun, 2012 [facility] [address] [id number] [place] [address]- 3649 28 May, 2012 [facility] [address] [id number] [place] [address]- 9719 28 May, 2012 [facility] [address] [id number] [place] [address]- 8715 May, [facility] [place] [facility] [address] [id number] [place] [address]- 1174 May, [facility] [address] [id number] [place] [address]- 9751 May, [facility] [place] [facility] [address] [id number] [place] [address]- 0913 May, [facility] [place] [facility] [address] [id number] [place] [address]- 7877 May, [facility] [place] [facility] [address] [id number] [place] [address]- 0252 May, [facility] [place] [facility] [address] [id number] [place] [address]- 8966 May, [facility] [place] [facility] [address] [id number] [place] [address]- 6340 May, [facility] [place] [facility] [address] [id number] [place] [address]- 3669 30 Apr, 2012 [facility] [place] [facility] [address] [id number] [place] [address]- 6014 Apr, [facility] [place] [facility] [address] [id number] [place] [address]- 5425 Apr, [facility] [place] [facility] [address] [id number] [place] [address]- 9578 Apr, [facility] [place] [facility] [address] [id number] [place] [address]- 1825 Apr, [facility] [place] [facility] [address] [id number] [place] [address]- 1191 Apr, [facility] [place] [facility] [address] [id number] [place] [address], [place] [address]- 4363 Apr, [facility] [place] [facility] [address] [facility] [id number] [place] [address]- 9769 Apr, [facility] [place] [facility] [address] [facility] [id number] [place] [address]- 6260 Apr, [facility] [place] [facility] [address] [facility] [id number] [place] [address]- 3199 Apr, [facility] [place] [facility] [address] [facility] [id number] [place] [address]- 0518 Apr, [facility] [place] [facility] [address] [facility] [id number] [place] [address]- 0351 Apr, [facility] [place] [facility] [address] [facility] [id number] [place] [address]- 2009 Mar, [facility] [place] [facility] [address] [id number] [place] [address]- 7001 Mar, [facility] [place] [facility] [address] [facility] [id number] [place] [address]- 4566 Mar, [facility] [place] [facility] [address] [facility] [id number] [place] [address]- 6005 Mar, [facility] [place] [facility] [address] [facility] [id number] [place] [address]- 9000 Mar, [facility] [place] [facility] [address] [id number] [place] [address]- 9359 Mar, [facility] [place] [facility] [address] [id number] [place] [address]- 6136 Mar, [facility] [place] [facility] [address] [id number] [place] [address]- 4107 Mar, [facility] [place] [facility] [address] [id number] [place] [address]- 4088 Mar, [facility] [place] [facility] [address] [id number] [place] [address]- 2719 Mar, [facility] [place] [facility] [address] [id number] [place] [address]- 9956 Mar, [facility] [place] [facility] [address] [id number] [place] [address]- 5573 Mar, [facility] [place] [facility] [address] [id number] [place] [address]- 8628 Mar, [facility] [place] [facility] [address] [id number] [place] [address]- 9023 Mar, [facility] [place] [facility] [address] [id number] [place] [address]- 0694 Mar, [facility] [place] [facility] [address] [id number] [place] [address]- 2587 Mar, [facility] [place] [facility] [address] [id number] [place] [address]- 6719 25 Jan, 2012 [facility] [place] [facility] [address] [id number] [place] [address]- 2552 24 Jan, 2012 [facility] [place] [facility] [address] [id number] [place] [address]- 4508 22 Jan, 2012 [facility] [place] [facility] [address] [id number] [place] [address]- 4764 22 Jan, 2012 [facility] [place] [facility] [address] [id number] [place] [address]- 7301 21 Jan, 2012 [facility] [place] [facility] [address] [id number] [place] [address]- 1515 18 Jan, 2012 [facility] [place] [facility] [address] [id number] [place] [address]- 1363 14 Jan, 2012 [facility] [place] [facility] [address] [id number] [place] [address]- 8281 07 Jan, 2012 [facility] [place] [facility] [address] [id number] [place] [address]- 5902 15 Dec, 2011 [facility] [place] [facility] [address] [id number] [place] [address]- 3492 10 Dec, 2011 [facility] [place] [facility] [address] [id number] [place] [address]- 9245 Dec, [facility] [place] [facility] [address] [id number] [place] [address]- 0465 Dec, [facility] [place] [facility] [address] [id number] [place] [address]- 7273 Dec, [facility] [place] [facility] [address] [id number] [place] [address]- 0846 Dec, [facility] [place] [facility] [address] [id number] [place] [address]- 8014 Dec, [facility] [place] [facility] [address] [id number] [place] [address]- 5317 Nov, [facility] [place] [facility] [address] [id number] [place] [address]- 0320 Oct, [facility] [place] [facility] [address] [id number] [place] [address]- 6366 Aug, [facility] [place] [facility] [address] [id number] [place] [address]- 3835 Jul, [facility] [place] [facility] [address] [id number] [place] [address]- 0803 Jul, [facility] [place] [facility] [address] [id number] [place] [address]- 8654 16 Jul, 2011 [facility] [place] [facility] [address] [id number] [place] [address]- 5134 14 Jul, 2011 [facility] [place] [facility] [address] [id number] [place] [address]- 7796 07 Jul, 2011 [facility] [place] [facility] [address] [id number] [place] [address]- 4798 02 Jul, 2011 [facility] [place] [facility] [address] [id number] [place] [address]- 5751 21 Jul, 2011 [facility] [place] [facility] [address] [id number] [place] [address]- 2650 15 Jul, 2011 [facility] [place] [facility] [address] [id number] [place] [address]- 7784 13 Jul, 2011 [facility] [place] [facility] [address] [id number] [place] [address]- 2825 03 Jul, 2011 [facility] [place] [facility] [address] [id number] [place] [address]- 8176 Jul, [facility] [place] [facility] [address] [id number] [place] [address]- 7294 24 Jun, 2011 [facility] [place] [facility] [address] [id number] [place] [address]- 7978 24 Jun, 2011 [facility] [place] [facility] [address] [id number] [place] [address]- 7060 Jun, [facility] [place] [facility] [address] [id number] [place] [address]- 6007 Jun, [facility] [place] [facility] [address] [id number] [place] [address]- 2877 Jun, [facility] [place] [facility] [address] [id number] [place] [address]- 8796 05 Jun, 2011 [facility] [place] [facility] [address] [id number] [place] [address]- 0091 Jun, [facility] [place] [facility] [address] [id number] [place] [address]- 0620 May, [facility] [place] [facility] [address] [id number] [place] [address]- 7046 May, [facility] [place] [facility] [address] [id number] [place] 1484 May, [facility] [place] [facility] [address] [id number] [place] [address]- 1827 May, [facility] [place] [facility] [address] [id number] [place] [address]- 7517 May, [facility] [place] [facility] [address] [id number] [place] [address]- 5403 May, [facility] [place] [facility] [address] [id number] [place] [address]- 9441 May, [facility] [place] [facility] [address] [id number] [place] [address]- 7976 May, [facility] [place] [facility] [address] [id number] [place] [address]- 5108 May, [facility] [place] [facility] [address] [id number] [place] [address]- 8933 May, [facility] [place] [facility] [address] [id number] [place] [address]- 7911 Apr, [facility] [place] [facility] [address] [id number] [place] [address]- 2998 15 Apr, 2011 [facility] [place] [facility] [address] [id number] [place] [address]- 6411 Apr, [facility] [place] [facility] [address] [id number] [place] 9425 Apr, [facility] [place] [facility] [address] [id number] [place] [address]- 9529 Mar, [facility] [place] [facility] [address] [facility] [id number] [id number] [address] Mar[facility] [address] [facility] [id number] [place] [address]- 8270 Mar, [facility] [address] [facility] [id number] [place] [address]- 1526 Mar, IMMUNIZATIONS No Known Immunizations SOCIAL HISTORY Never Assessed REASON FOR VISIT triage PLAN OF CARE VITAL SIGNS MEDICATIONS Unknown Medications RESULTS No Results PROCEDURES No Known procedures [...]
--- OUTSIDE RECORDS SUMMARY | 2017-10-27 09:39 | XMS REPORT ---
Author Author SABIHA MAST [facility] Address [address] [place] [address] Care Team Providers Care Correspondence Representative Name Role Phone SABIHA MAST Unavailable PROBLEMS Type Condition ICD9-CM Code [id number] Code Onset Dates Condition Status SNOMED Code Problem FRANCIS (generalized anxiety disorder) F41.1 Active 55280176 Problem Thoracic disc herniation M51.24 Active 476903451 Problem Major depressive disorder in partial remission F32.4 Active 11057155 Problem Mild episode of recurrent major depressive disorder F33.0 Active 033347380 Problem Constipation, unspecified constipation type K59.00 Active 01931268 Problem Seizure disorder G40.909 Active 978372768 Problem Conversion disorder (or hysterical neurosis, conversion type) F44.9 Active 79241926 Problem Slow transit constipation K59.01 Active 11865463 Problem Paroxysmal tachycardia I47.9 Active 62015810 ALLERGIES No Information ENCOUNTERS Encounter Location Date Diagnosis [facility] [id number] [place] [address] 12232- 7038 September, [facility] [id number] [place] [address] 19204- 2719 Jul, [facility] [address] 39334- 7823 Jul, Dorsalgia, unspecified M54.9 [facility] [id number] [place] [address] 00424- 1547 Jul, Mild episode of recurrent major depressive disorder F33.0 and FRANCIS (generalized anxiety disorder) F41.1 [facility] [id number] [place] [address] 95596- 7435 May, [facility] [address] 11675 -4537 May, Dysuria R30.0 and Acute cystitis with hematuria N30.01 [facility] [id number] [place] [address] 35725- 2244 Apr, [facility] [id number] [place] [address] 52351- 7556 Apr, Major depressive disorder in partial remission F32.4 and FRANCIS (generalized anxiety disorder) F41.1 [facility] [id number] [place] [address] 67886- 0335 Mar, Paroxysmal tachycardia I47.9 [facility] [id number] [place] [address] 61010- 0726 Mar, Paroxysmal tachycardia I47.9 and Pain of left lower extremity M79.605 [facility] [id number] [place] [address] 13502- 3074 Mar, FRANCIS (generalized anxiety disorder) F41.1 and Major depressive disorder in partial remission F32.4 [facility] [id number] [place] [address] 14872- 8310 Jan, [facility] [id number] [place] [address] 33984- 2218 Jan, [facility] [id number] [place] [address] 07946- 3165 Jan, [facility] [id number] [place] [address] 73865 -0997 Dec, Constipation, unspecified constipation type K59.00 [facility] [id number] [place] [address] 24554- 5986 Dec, [facility] [id number] [place] [address] 26143- 5986 Nov, [facility] [id number] [place] [address] 76284- 8294 Nov, Major depressive disorder in partial remission F32.4 and FRANCIS (generalized anxiety disorder) F41.1 [facility] [id number] [place] [address] 26536 -9394 Oct, Abdominal pain R10.9 and Slow transit constipation K59.01 [facility] [id number] [place] [address] 31361- 4466 Aug, Major depressive disorder in partial remission F32.4 ; FRANCIS ( generalized anxiety disorder) F41.1 ; Conversion disorder (or hysterical neurosis, conversion type) F44.9 ; Dorsalgia, unspecified M54.9 and Long-term use of high-risk medication Z79.899 [place] [facility] [address] 45320- 1673 Aug, [place] [facility] [address] 48625- 8048 Jul, Paroxysmal tachycardia I47.9 [place] [facility] [address] 68880- 8149 Jul, Paroxysmal tachycardia I47.9 [place] [address] 89381- 2531 Jun, [place] [address] 13936- 3597 Jun, Major depressive disorder in partial remission F32.4 ; FRANCIS ( generalized anxiety disorder) F41.1 and Conversion disorder (or hysterical neurosis, conversion type) F44.9 [facility] [id number] [place] [address] 22953 -4021 May, Pelvic pain R10.2 [facility] [address] 98242 -4327 Apr, Gastroenteritis K52.9 [facility] [address] 76726 -0283 Apr, Blood in urine R31.9 and Acute cystitis with hematuria N30.01 [place] [address] 34413- 3473 Apr, Major depressive disorder in partial remission F32.4 ; FRANCIS ( generalized anxiety disorder) F41.1 and Conversion disorder (or hysterical neurosis, conversion type) F44.9 [facility] [id number] [place] [address] 72369- 0572 Apr, [facility] [id number] [place] [address] 69173- 6082 Apr, Abnormal mammogram R92.8 [facility] [id number] [place] [address] 07243- 3328 Mar, [facility] [address] 35098- 0268 Mar, Gastroenteritis K52.9 and Seizure disorder G40.909 [facility] [id number] [place] [address] 31029- 7457 Dec, [facility] [id number] [place] [address] 98271 -8449 Dec, Other headache syndrome G44.89 [facility] [address] 17819- 4248 Dec, [facility] [id number] [place] [address] 17692- 7442 Dec, Thoracic disc herniation M51.24 [facility] [id number] [place] [address] 24357- 0003 Dec, [facility] [id number] [place] [address] 06711- 5785 Nov, Major depressive disorder in partial remission F32.4 and FRANCIS (generalized anxiety disorder) F41.1 [facility] [id number] [place] [address] 93137- 5311 Nov, [facility] [id number] [place] [address] 91704- 9280 Nov, Dorsalgia, unspecified M54.9 [facility] [address] [address]- 9068 Oct, [facility] [id number] [place] [address] 52931- 1766 September, [facility] [address] [address]- 8876 Aug, [facility] [id number] [place] [address] 88270- 1140 Aug, Major depressive disorder in partial remission F32.4 and FRANCIS (generalized anxiety disorder) F41.1 [facility] [address] [place] [address] 81414- 0642 Aug, [facility] [address] [address]- 6417 Jul, Abnormal mammogram R92.8 [facility] [id number] [address]- 9856 Jul, [facility] [address] [address]- 0050 Jul, [facility] [id number] [place] [address] 20966- 4961 Jul, [facility] [address] [address]- 5328 Jul, [facility] [address] [address]- 5269 Jul, [facility] [id number] [address]- 1700 Jul, [facility] [address] [place] [address]- 2157 Jun, Major depressive disorder in partial remission F32.4 and FRANCIS (generalized anxiety disorder) F41.1 [facility] [address] [address]- 7546 Jun, [facility] [address] [facility] [id number] [address]- 3046 May, [facility] [id number] [place] [address] 10397- 7373 Apr, [facility] [id number] [address]- 1056 Mar, Major depressive disorder, recurrent episode, moderate F33.1 ; PTSD (post-traumatic stress disorder) F43.10 and FRANCIS (generalized anxiety disorder) F41.1 [facility] [id number] [address]- 6721 Mar, [facility] [id number] [place] [address] 05220- 1247 Mar, [facility] [id number] [place] [address] 05048- 4791 Mar, [facility] [id number] [place] [address] 97169- 3781 Mar, [facility] [address] [address]- 6396 Jan, [facility] [id number] [place] [address] 53459- 7979 15 Jan, 2015 [facility] [address] [address]- 6352 15 Jan, 2015 [facility] [id number] [place] [address] 48510- 8206 14 Jan, 2015 Thoracic disc herniation 722.11 [facility] [address] [address]- 0332 Dec, [facility] [id number] [address]- 0470 Dec, [facility] [address] [address]- 9761 Dec, [facility] [id number] [address]- 0836 16 Nov, 2014 [facility] [id number] [address]- 1986 Nov, Generalized anxiety disorder 300.02 ; Posttraumatic stress disorder 309.81 and Major depressive disorder, recurrent episode, moderate 296.32 [facility] [address] [address]- 4186 Nov, [facility] [address] [facility] [id number] [address]- 0586 Nov, [facility] [id number] [address]- 8066 Oct, [facility] [id number] [address]- 1366 Oct, [facility] [address], [place] [address]- 6066 Oct, [facility] [address], [place] [address]- 2540 September, [facility] [address], [place] [address]- 5018 September, [facility] [address], [place] [address]- 9387 Aug, [facility] [id number] [address]- 7043 Aug, [facility] [id number] [address]- 3926 Jul, [facility] [id number] [address]- 5456 Jul, [facility] [id number] [address]- 2276 Jul, [facility] [id number] [address]- 9476 Jul, [facility] [place] [facility] [address] [id number] [place] [address]- 5952 16 Jul, 2014 [facility] [place] [facility] [address] [id number] [place] [address]- 0844 16 Jul, 2014 [facility] [place] [facility] [address] [id number] [place] [address]- 0056 Jul, 2014 [facility] [place] [facility] [address] [id number] [place] [address]- 5162 Jul, 2014 [facility] [place] [facility] [address] [id number] [place] [address]- 0841 Jul, [facility] [place] [facility] [address] [id number] [place] [address]- 8956 Jul, [facility] [place] [facility] [address] [id number] [place] [address]- 8434 Jun, [facility] [place] [facility] [address] [id number] [place] [address]- 9939 Jun, [facility] [place] [facility] [address] [id number] [place] [address]- 2466 Jun, [facility] [place] [facility] [address] [facility] [id number] [place] [address]- 1856 May, [facility] [place] [facility] [address] [id number] [place] [address]- 8265 Apr, [facility] [place] [facility] [address] [id number] [place] [address]- 5878 Apr, [facility] [place] [facility] [address] [id number] [place] [address]- 1500 Apr, [facility] [place] [facility] [address] [id number] [place] [address]- 5608 Apr, [facility] [place] [facility] [address] [id number] [place] 9075 Apr, [facility] [place] [facility] [address] [id number], [place] [address]- 9239 Apr, [facility] [place] [facility] [address] [id number] [place] [address]- 4496 Apr, [facility] [place] [facility] [address] [id number] [place] [address]- 3711 Apr, [facility] [place] [facility] [address] [id number] [place] [address]- 0768 Mar, [facility] [place] [facility] [address] [id number] [place] [address]- 7757 Mar, [facility] [place] [facility] [address] [id number] [place] [address]- 4459 Mar, [facility] [place] [facility] [address] [id number] [place] [address]- 7448 Mar, [facility] [place] [facility] [address] [id number] [place] [address]- 4803 Mar, [facility] [place] [facility] [address] [id number] [place] [address]- 1598 Mar, [facility] [place] [facility] [address] [id number] [place] [address]- 4995 Mar, [facility] [place] [facility] [address] [id number] [place] [address]- 2938 Mar, [facility] [place] [facility] [address] [id number] [address]- 2341 Mar, [facility] [place] [facility] [address] [id number], [place] [address]- 9249 Mar, [facility] [place] [facility] [address] [id number] [place] [address]- 3301 17 Mar, 2014 [facility] [place] [facility] [address] [id number] [place] [address]- 8648 14 Mar, 2014 [facility] [place] [facility] [address] [id number] [place] [address]- 8662 14 Mar, 2014 [facility] [place] [facility] [address] [id number] [place] [address]- 4918 07 Mar, 2013 [facility] [place] [facility] [address] [id number] [place] [address]- 3302 07 Mar, 2013 [facility] [place] [facility] [address] [id number] [place] [address]- 2669 06 Mar, 2013 [facility] [place] [facility] [address] [id number] [place] [address]- 1668 06 Oct, 2013 [facility] [place] [facility] [address] [id number] [place] [address]- 5691 19 Sep, 2013 [facility] [place] [facility] [address] [id number] [place] [address]- 7471 19 Sep, 2013 [facility] [place] [facility] [address] [id number] [place] [address]- 8855 09 Sep, 2013 [facility] [place] [facility] [address] [id number] [place] [address]- 6237 09 Sep, 2013 [facility] [place] [facility] [address] [id number] [place] [address]- 2542 05 Sep, 2013 [facility] [place] [facility] [address] [id number] [place] [address]- 2544 05 Sep, 2013 [facility] [place] [facility] [address] [id number] [place] [address]- 9280 05 Sep, 2013 [facility] [place] [facility] [address] [id number] [place] [address]- 2540 05 Sep, 2013 [facility] [place] [facility] [address] [id number] [place] [address]- 2544 03 Sep, 2013 [facility] [place] [facility] [address] [id number] [place] [address]- 3454 02 Sep, 2013 [facility] [place] [facility] [address] [id number] [place] [address]- 5756 02 Sep, 2013 [facility] [place] [facility] [address] [id number] [place] [address]- 8521 Jan, [facility] [address] [id number] [place] [address]- 7183 Jan, [facility] [address] [id number] [place] [address]- 9848 Dec, [facility] [address] [id number] [place] [address]- 0988 Dec, [facility] [address] [id number] [place] [address]- 7595 Dec, [facility] [address] [id number] [place] [address]- 7215 Dec, [facility] [address] [id number] [place] [address]- 5063 Dec, [facility] [address] [id number] [place] [address]- 8547 Dec, [facility] [place] [id number] Dec [facility] [id number] Dec [facility] [address] [id number] [place] [address]- 1625 Dec, [facility] [address] [id number] [place] [address]- 6527 Dec, [facility] [place] [facility] [address] [id number] [place] [address]- 0774 Dec, [facility] [place] [facility] [address] [id number] [place] [address]- 4752 Dec, [facility] [place] [facility] [address] [id number] [place] [address]- 5958 Nov, [facility] [place] [facility] [address] [id number] [place] [address]- 6172 Nov, [facility] [place] [facility] [address] [id number] [place] [address]- 1714 Nov, [facility] [place] [facility] [address] [id number] [place] [address]- 0895 Nov, [facility] [place] [facility] [address] [id number] [place] [address]- 5520 Nov, [facility] [place] [facility] [address] [id number] [place] [address]- 0242 Nov, [facility] [place] [facility] [address] [id number] [place] [address]- 6069 Nov, [facility] [place] [facility] [address] [id number] [place] [address]- 4975 Nov, [facility] [place] [facility] [address] [id number] [place] [address]- 4324 Nov, [facility] [place] [facility] [address] [id number] [place] [address]- 7709 Nov, [facility] [place] [facility] [address] [id number] [place] [address]- 4512 Nov, [facility] [place] [facility] [address] [id number] [place] [address]- 8014 Nov, [facility] [place] [facility] [address] [id number] [place] [address]- 1561 Nov, [facility] [place] [facility] [address] [id number] [place] [address]- 7655 Oct, [facility] [place] [facility] [address] [id number] [place] [address]- 1415 Oct, [facility] [place] [facility] [address] [id number] [place] [address]- 4123 Oct, [facility] [place] [facility] [address] [id number] [place] [address]- 6910 Oct, [facility] [place] [facility] [address] [id number] [place] [address]- 7568 Oct, [facility] [place] [facility] [address] [id number] [place] [address]- 6733 Oct, [facility] [place] [facility] [address] [id number] [place] [address]- 3785 Oct, [facility] [place] [facility] [address] [id number] [place] [address]- 5558 Oct, [facility] [place] [facility] [address] [id number] [place] [address]- 8098 Oct, [facility] [place] [facility] [address] [id number] [place] [address]- 7470 Oct, [facility] [place] [facility] [address] [id number] [place] [address]- 7311 Oct, [facility] [place] [facility] [address] [id number] [place] [address]- 9675 Oct, [facility] [place] [facility] [address] [id number] [place] [address]- 3411 September, [facility] [place] [facility] [address] [id number] [place] [address]- 6570 September, [facility] [place] [facility] [address] [id number] [place] [address]- 6228 September, [facility] [place] [facility] [address] [id number] [place] [address]- 8932 September, [facility] [place] [facility] [address] [id number] [place] [address]- 6284 Aug, [facility] [place] [facility] [address] [id number] [place] [address]- 0965 Aug, [facility] [place] [facility] [address] [id number] [place] [address]- 7302 Aug, [facility] [place] [facility] [address] [id number] [place] [address]- 5092 Aug, [facility] [place] [facility] [address] [id number] [place] [address]- 7194 Aug, [facility] [place] [facility] [address] [id number] [place] [address] 10 Aug, 2013 [facility] [place] [facility] [address] [id number] [place] [address] 10 Aug, 2013 [facility] [place] [facility] [address] [id number] [place] [address] 28 Jul, 2013 [facility] [place] [facility] [address] [id number] [place] [address] 28 Jul, 2013 [facility] [place] [facility] [address] [id number] [place] [address] Jul, [facility] [place] [facility] [address] [id number] [place] [address] Jul, [facility] [place] [facility] [address] [id number] [place] [address] Jul, [facility] [place] [facility] [address] [id number] [place] [address] 19 Jul, 2013 [facility] [place] [facility] [address] [id number] [place] [address] 18 Jul, 2013 [facility] [place] [facility] [address] [id number] [place] [address] 18 Jul, 2013 [facility] [place] [facility] [address] [id number] [place] [address] 18 Jul, 2013 [facility] [place] [facility] [address] [id number] [place] [address] 18 Jul, 2013 [facility] [place] [facility] [address] [id number] [place] [address] 18 Jul, 2013 [facility] [place] [facility] [address] [id number] [place] [address] 18 Jul, 2013 [facility] [place] [facility] [address] [id number] [place] [address] 14 Jul, 2013 [facility] [place] [facility] [address] [id number] [place] [address] 14 Jul, 2013 [facility] [place] [facility] [address] [id number] [place] [address] Jul, [facility] [place] [facility] [address] [id number] [place] [address] 11 Jul, 2013 [facility] [place] [facility] [address] [id number] [place] [address] Jul, [facility] [place] [facility] [address] [id number] [place] [address] Jul, [facility] [place] [facility] [address] [id number] [place] [address] Jun, [facility] [place] [facility] [address] [id number] [place] [address] Jun, [facility] [place] [facility] [address] [id number] [place] [address] 15 Jun, 2013 [facility] [place] [facility] [address] [id number] [place] [address]- [address]79 15 Jun, 2013 [facility] [place] [facility] [address] [id number] [place] [address]- 48[address] 14 Jun, 2013 [facility] [place] [facility] [address] [id number] [place] [address] 14 Jun, 2013 [facility] [place] [facility] [address] [id number] [place] [address] 2849 14 Jun, 2013 [facility] [place] [facility] [address] [id number] [place] [address] 8834 14 Jun, 2013 [facility] [place] [facility] [address] [id number] [place] [address] 14 Jun, 2013 [facility] [place] [facility] [address] [id number] [place] [address] 14 Jun, 2013 [facility] [place] [facility] [address] [id number] [place] [address] 27 May, 2013 [facility] [place] [facility] [address] [id number] [place] [address] 27 May, 2012 [facility] [address] [id number] [place] [address] 99[address] 26 May, 2013 [facility] [place] [facility] [address] [id number] [place] [address] 19 May, 2013 [facility] [address] [id number] [place] [address] 1056 19 May, 2013 [facility] [place] [facility] [address] [id number] [place] [address] 16 May, 2013 [facility] [place] [facility] [address] [id number] [place] [address] 16 May, 2013 [facility] [place] [facility] [address] [id number] [place] [address] 16 May, 2013 [facility] [place] [facility] [address] [id number] [place] [address] 16 May, 2013 [facility] [address] [id number] [place] [address] 1467 13 May, 2013 [facility] [place] [facility] [address] [id number] [place] [address] 13 May, 2013 [facility] [place] [facility] [address] [id number] [place] [address] 1793 11 May, 2013 [facility] [place] [facility] [address] [id number] [place] [address] 0228 20 Apr, 2013 [facility] [place] [facility] [address] [id number] [place] [address] 3588 18 Apr, 2013 [facility] [place] [facility] [address] [id number] [place] [address] 0[address] 18 Apr, 2013 [facility] [place] [facility] [address] [id number] [place] [address] 13 Apr, 2013 [facility] [place] [facility] [address] [id number] [place] [address]- 7844 Apr, [facility] [place] [facility] [address] [id number] [place] [address] 8[address] 08 Apr, 2013 [facility] [place] [facility] [address] [id number] [place] [address]- 1344 08 Apr, 2013 [facility] [place] [facility] [address] [id number] [place] [address] 3433 Apr, [facility] [place] [facility] [address] [id number] [place] [address]- 1265 Apr, [facility] [place] [facility] [address] [id number] [place] [address]- 0318 Apr, [facility] [place] [facility] [address] [id number] [place] [address]- 9587 Apr, [facility] [place] [facility] [address] [id number] [place] [address] 2136 Mar, [facility] [place] [facility] [address] [id number][place] [address] 1564 Mar, [facility] [place] [facility] [address] [id number] [place] [address]- 9043 Mar, [facility] [place] [facility] [address] [id number], [place] [address] 3934 Mar, [facility] [place] [facility] [address] [id number], [place] [address] 5700 Mar, [facility] [place] [facility] [address] [id number][place] [address]- 1669 Mar, [facility] [place] [facility] [address] [id number] [place] [address]- 8943 Mar, [facility] [place] [facility] [address] [id number], [place] [address] 6381 Mar, [facility] [place] [facility] [address] [id number], [place] [address]- 5978 Mar, [facility] [place] [facility] [address] [id number] [place] [address]- 6068 15 Mar, 2013 [facility] [address] [id number] [place] [address]- 9059 15 Mar, 2013 [facility] [place] [facility] [address] [id number] [place] [address]- 4509 Mar, [facility] [place] [facility] [address] [id number] [place] [address]- 6618 30 Jan, 2013 [facility] [place] [facility] [address] [id number] [place] [address]- 3390 25 Jan, 2013 [facility] [place] [facility] [address] [id number] [place] [address]- 2201 20 Jan, 2013 [facility] [place] [facility] [address] [id number] [place] [address]- 8858 Jan, [facility] [place] [facility] [address] [id number] [place] [address]- 0344 Dec, [facility] [place] [facility] [address] [id number] [place] [address]- 4270 Dec, [facility] [place] [facility] [address] [id number] [place] [address]- 5875 Dec, [facility] [place] [facility] [address] [id number] [place] [address]- 1149 Dec, [facility] [place] [facility] [address] [id number] [place] [address]- 6711 Dec, [facility] [place] [facility] [address] [id number] [place] [address]- 2540 Dec, [facility] [place] [facility] [address] [id number] [place] [address]- 3448 Dec, [facility] [place] [facility] [address] [id number] [place] [address]- 9254 Dec, [facility] [place] [facility] [address] [id number] [place] [address]- 0397 Dec, [facility] [place] [facility] [address] [id number] [place] [address]- 7580 Nov, [facility] [place] [facility] [address] [id number] [place] [address]- 5998 Nov, [facility] [place] [facility] [address] [id number] [place] [address]- 9759 Nov, [facility] [place] [facility] [address] [id number] [place] [address]- 3162 Nov, [facility] [place] [facility] [address] [id number] [place] [address]- 7311 Nov, [facility] [place] [facility] [address] [id number] [place] [address]- 9546 Nov, [facility] [place] [facility] [address] [id number] [place] [address]- 1349 Nov, [facility] [place] [facility] [address] [id number] [place] [address]- 5641 Nov, [facility] [place] [facility] [address] [id number] [place] [address]- 2601 Oct, [facility] [place] [facility] [address] [id number] [place] [address]- 2948 Oct, [facility] [place] [facility] [address] [id number] [place] [address]- 1338 Oct, [facility] [place] [facility] [address] [id number] [place] [address]- 6250 Oct, [facility] [place] [facility] [address] [id number] [place] [address]- 0664 Oct, [facility] [place] [facility] [address] [id number] [place] [address]- 9048 Oct, [facility] [place] [facility] [address] [id number] [place] [address]- 0980 Oct, [facility] [place] [facility] [address] [id number] [place] [address]- 3421 20 Oct, 2012 [facility] [address] [id number] [place] [address]- 5132 19 Oct, 2012 [facility] [place] [facility] [address] [id number] [place] [address]- 4569 18 Oct, 2012 [facility] [place] [facility] [address] [id number] [place] [address]- 6842 17 Oct, 2012 [facility] [place] [facility] [address] [id number] [place] [address]- 8753 14 Oct, 2012 [facility] [place] [facility] [address] [id number] [place] [address]- 1044 07 Oct, 2012 [facility] [place] [facility] [address] [id number] [place] [address]- 1497 30 Sep, 2012 [facility] [place] [facility] [address] [id number] [place] [address]- 3987 September, [facility] [place] [facility] [address] [id number] [place] [address]- 7255 September, [facility] [place] [facility] [address] [id number] [place] [address]- 2548 25 Aug, 2012 [facility] [place] [facility] [address] [id number] [place] [address]- 5214 24 Aug, 2012 [facility] [place] [facility] [address] [id number] [place] [address]- 8492 18 Aug, 2012 [facility] [place] [facility] [address] [id number] [place] [address]- 3964 18 Aug, 2012 [facility] [place] [facility] [address] [id number] [place] [address]- 3087 18 Aug, 2012 [facility] [place] [facility] [address] [id number] [place] [address]- 1004 08 Aug, 2012 [facility] [place] [facility] [address] [id number] [place] [address]- 0986 05 Aug, 2012 [facility] [place] [facility] [address] [id number] [place] [address]- 1470 Jul, [facility] [address] [id number] [place] [address]- 3905 Jul, [facility] [place] [facility] [address] [id number] [place] [address]- 4750 Jul, [facility] [address] [id number] [place] [address]- 4239 Jul, [facility] [place] [facility] [address] [id number] [place] [address]- 1035 Jul, [facility] [place] [facility] [address] [id number] [place] [address]- 6005 Jul, [facility] [place] [facility] [address] [id number] [place] [address]- 3950 Jul, [facility] [place] [facility] [address] [id number] [place] [address]- 8763 Jul, [facility] [address] [id number] [place] [address]- 3018 Jul, [facility] [place] [facility] [address] [id number] [place] [address]- 8270 Jul[facility] [place] [facility] [address] [facility] [id number] [place] [address]- 4433 Jul, [facility] [place] [facility] [address] [id number] [place] [address]- 8767 Jul, [facility] [place] [facility] [address] [id number] [place] [address]- 1260 Jul, [facility] [place] [facility] [address] [id number] [place] [address]- 9052 Jun, [facility] [place] [facility] [address] [id number] [place] [address]- 8149 Jun, [facility] [place] [facility] [address] [id number] [place] [address]- 2516 19 Jun, 2012 [facility] [address] [id number] [place] [address]- 9429 17 Jun, 2012 [facility] [place] [facility] [address] [id number] [place] [address]- 4616 15 Jun, 2012 [facility] [address] [id number] [place] [address]- 7066 14 Jun, 2012 [facility] [place] [facility] [address] [id number] [place] [address]- 6634 08 Jun, 2012 [facility] [address] [id number] [place] [address]- 7347 28 May, 2012 [facility] [address] [id number] [place] [address]- 6096 28 May, 2012 [facility] [address] [id number] [place] [address]- 2115 May, [facility] [place] [facility] [address] [id number] [place] [address]- 6232 May, [facility] [address] [id number] [place] [address]- 3194 May, [facility] [place] [facility] [address] [id number] [place] [address]- 7183 May, [facility] [place] [facility] [address] [id number] [place] [address]- 1650 May, [facility] [place] [facility] [address] [id number] [place] [address]- 7102 May, [facility] [place] [facility] [address] [id number] [place] [address]- 8466 May, [facility] [place] [facility] [address] [id number] [place] [address]- 4866 May, [facility] [place] [facility] [address] [id number] [place] [address]- 1341 30 Apr, 2012 [facility] [place] [facility] [address] [id number] [place] [address]- 6682 Apr, [facility] [place] [facility] [address] [id number] [place] [address]- 6075 Apr, [facility] [place] [facility] [address] [id number] [place] [address]- 9375 Apr, [facility] [place] [facility] [address] [id number] [place] [address]- 5078 Apr, [facility] [place] [facility] [address] [id number] [place] [address]- 8453 Apr, [facility] [place] [facility] [address] [id number] [place] [address], [place] [address]- 2367 Apr, [facility] [place] [facility] [address] [facility] [id number] [place] [address]- 4654 Apr, [facility] [place] [facility] [address] [facility] [id number] [place] [address]- 6555 Apr, [facility] [place] [facility] [address] [facility] [id number] [place] [address]- 5310 Apr, [facility] [place] [facility] [address] [facility] [id number] [place] [address]- 8003 Apr, [facility] [place] [facility] [address] [facility] [id number] [place] [address]- 2481 Apr, [facility] [place] [facility] [address] [facility] [id number] [place] [address]- 6124 Mar, [facility] [place] [facility] [address] [id number] [place] [address]- 3006 Mar, [facility] [place] [facility] [address] [facility] [id number] [place] [address]- 6092 Mar, [facility] [place] [facility] [address] [facility] [id number] [place] [address]- 5915 Mar, [facility] [place] [facility] [address] [facility] [id number] [place] [address]- 8703 Mar, [facility] [place] [facility] [address] [id number] [place] [address]- 6790 Mar, [facility] [place] [facility] [address] [id number] [place] [address]- 5961 Mar, [facility] [place] [facility] [address] [id number] [place] [address]- 5398 Mar, [facility] [place] [facility] [address] [id number] [place] [address]- 4421 Mar, [facility] [place] [facility] [address] [id number] [place] [address]- 0320 Mar, [facility] [place] [facility] [address] [id number] [place] [address]- 9707 Mar, [facility] [place] [facility] [address] [id number] [place] [address]- 9883 Mar, [facility] [place] [facility] [address] [id number][place] [address]- 3851 Mar, [facility] [place] [facility] [address] [id number] [place] [address]- 0016 Mar, [facility] [place] [facility] [address] [id number], [place] [address]- 2506 Mar, [facility] [place] [facility] [address] [id number], [place] [address]- 5405 Mar, [facility] [place] [facility] [address] [id number], [place] [address]- 8106 25 Jan, 2012 [facility] [place] [facility] [address] [id number], [place] [address]- 6668 24 Jan, 2012 [facility] [place] [facility] [address] [id number] [address]- 5193 22 Jan, 2012 [facility] [place] [facility] [address] [id number], [place] [address]- 6361 22 Jan, 2012 [facility] [place] [facility] [address] [id number], [place] [address]- 5902 21 Jan, 2012 [facility] [place] [facility] [address] [id number] [place] [address]- 7887 18 Jan, 2012 [facility] [place] [facility] [address] [id number] [place] [address]- 0675 14 Jan, 2012 [facility] [place] [facility] [address] [id number] [place] [address]- 4102 07 Jan, 2012 [facility] [place] [facility] [address] [id number] [place] [address]- 1988 15 Dec, 2011 [facility] [place] [facility] [address] [id number] [place] [address]- 6187 10 Dec, 2011 [facility] [place] [facility] [address] [id number] [place] [address]- 0819 Dec, [facility] [place] [facility] [address] [id number] [place] [address]- 1697 Dec, [facility] [place] [facility] [address] [id number] [place] [address]- 6738 Dec, [facility] [place] [facility] [address] [id number] [place] [address]- 3654 Dec, [facility] [place] [facility] [address] [id number] [place] [address]- 1577 Dec, [facility] [place] [facility] [address] [id number] [place] [address]- 6528 Nov, [facility] [place] [facility] [address] [id number] [place] [address]- 6284 Oct, [facility] [place] [facility] [address] [id number] [place] [address]- 1956 Aug, [facility] [place] [facility] [address] [id number] [place] [address]- 4408 Jul, [facility] [place] [facility] [address] [id number] [place] [address]- 2470 Jul, [facility] [place] [facility] [address] [id number] [place] [address]- 6132 16 Jul, 2011 [facility] [place] [facility] [address] [id number] [place] [address]- 5642 14 Jul, 2011 [facility] [place] [facility] [address] [id number] [place] [address]- 6736 07 Jul, 2011 [facility] [place] [facility] [address] [id number] [place] [address]- 1403 02 Jul, 2011 [facility] [place] [facility] [address] [id number] [place] [address]- 8291 21 Jul, 2011 [facility] [place] [facility] [address] [id number] [place] [address]- 5594 15 Jul, 2011 [facility] [place] [facility] [address] [id number] [place] [address]- 1672 13 Jul, 2011 [facility] [place] [facility] [address] [id number] [place] [address]- 9003 03 Jul, 2011 [facility] [place] [facility] [address] [id number] [place] [address]- 7440 Jul, [facility] [place] [facility] [address] [id number] [place] [address]- 0963 24 Jun, 2011 [facility] [place] [facility] [address] [id number] [place] [address]- 6773 24 Jun, 2011 [facility] [place] [facility] [address] [id number] [place] [address]- 1931 Jun, [facility] [place] [facility] [address] [id number] [place] [address]- 4132 Jun, [facility] [place] [facility] [address] [id number] [place] [address]- 5783 Jun, [facility] [place] [facility] [address] [id number] [place] [address]- 1075 05 Jun, 2011 [facility] [place] [facility] [address] [id number] [place] [address]- 2553 Jun, [facility] [place] [facility] [address] [id number] [place] [address]- 4283 May, [facility] [place] [facility] [address] [id number] [place] [address]- 3806 May, [facility] [place] [facility] [address] [id number] [place] 4636 May, [facility] [place] [facility] [address] [id number] [place] [address]- 6696 May, [facility] [place] [facility] [address] [id number] [place] [address]- 2540 May, [facility] [place] [facility] [address] [id number] [place] [address]- 1520 May, [facility] [place] [facility] [address] [id number] [place] [address]- 8783 May, [facility] [place] [facility] [address] [id number] [place] [address]- 4322 May, [facility] [place] [facility] [address] [id number] [place] [address]- 9041 May, [facility] [place] [facility] [address] [id number] [place] [address]- 5560 May, [facility] [place] [facility] [address] [id number] [place] [address]- 9020 Apr, [facility] [place] [facility] [address] [id number] [place] [address]- 9357 15 Apr, 2011 [facility] [place] [facility] [address] [id number] [place] [address]- 1584 Apr, [facility] [place] [facility] [address] [id number] [place] [address]648 Apr, [facility] [place] [facility] [address] [id number] [place] [address]- 3073 Mar, [facility] [place] [facility] [address] [facility] [id number] [place] [id number] [address]64 Mar, [facility] [address] [facility] [id number] [place] [address]- 4148 Mar, [facility] [address] [facility] [id number] [place] [address]- 1657 Mar, IMMUNIZATIONS No Known Immunizations SOCIAL HISTORY Never Assessed REASON FOR VISIT triage - CBowmanRN PLAN OF CARE VITAL SIGNS MEDICATIONS Unknown [...]
--- OUTSIDE RECORDS SUMMARY | 2017-10-27 09:40 | XMS REPORT ---
Author Author YUMI PARMAR [facility] Address [address] [place] [address] Care Team Providers Care Supervisor Operations Name Role Phone AAGTA YUMI Unavailable PROBLEMS Type Condition ICD9-CM Code [id number]-TY Code Onset Dates Condition Status SNOMED Code Problem FRANCIS (generalized anxiety disorder) F41.1 Active 69217107 Problem Thoracic disc herniation M51.24 Active 184009991 Problem Major depressive disorder in partial remission F32.4 Active 33341355 Problem Mild episode of recurrent major depressive disorder F33.0 Active 129257580 Problem Constipation, unspecified constipation type K59.00 Active 47541086 Problem Seizure disorder G40.909 Active 482731561 Problem Conversion disorder (or hysterical neurosis, conversion type) F44.9 Active 94076195 Problem Slow transit constipation K59.01 Active 22801729 Problem Paroxysmal tachycardia I47.9 Active 67978180 ALLERGIES No Information ENCOUNTERS Encounter Location Date Diagnosis [facility] [id number] [place] [address] 54373- 6935 Aug, [facility] [id number] [place] [address] 84785- 5434 Jul, [facility] [address] 95103- 0768 Jul, Dorsalgia, unspecified M54.9 [facility] [id number] [place] [address] 83604- 3650 Jul, Mild episode of recurrent major depressive disorder F33.0 and FRANCIS (generalized anxiety disorder) F41.1 [facility] [id number] [place] [address] 66903- 7464 May, [facility] [address] 47707 -2903 May, Dysuria R30.0 and Acute cystitis with hematuria N30.01 [facility] [id number] [place] [address] 51392- 6715 Apr, [facility] [id number] [place] [address] 37551- 8466 Apr, Major depressive disorder in partial remission F32.4 and FRANCIS (generalized anxiety disorder) F41.1 [facility] [id number] [place] [address] 36363- 5225 Mar, Paroxysmal tachycardia I47.9 [facility] [id number] [place] [address] 38540- 4776 Mar, Paroxysmal tachycardia I47.9 and Pain of left lower extremity M79.605 [facility] [id number] [place] [address] 92600- 6216 Mar, FRANCIS (generalized anxiety disorder) F41.1 and Major depressive disorder in partial remission F32.4 [facility] [id number] [place] [address] 58996- 9954 Jan, [facility] [id number] [place] [address] 77632- 6767 Jan, [facility] [id number] [place] [address] 57515- 6282 Jan, [facility] [id number] [place] [address] 78100 -9999 Dec, Constipation, unspecified constipation type K59.00 [facility] [id number] [place] [address] 52853- 6500 Dec, [facility] [id number] [place] [address] 72067- 5966 Nov, [facility] [id number] [place] [address] 03442- 4864 Nov, Major depressive disorder in partial remission F32.4 and FRANCIS (generalized anxiety disorder) F41.1 [facility] [id number] [place] [address] 46326 -5195 Oct, Abdominal pain R10.9 and Slow transit constipation K59.01 [facility] [id number] [place] [address] 19018- 3464 Aug, Major depressive disorder in partial remission F32.4 ; FRANCIS ( generalized anxiety disorder) F41.1 ; Conversion disorder (or hysterical neurosis, conversion type) F44.9 ; Dorsalgia, unspecified M54.9 and Long-term use of high-risk medication Z79.899 [place] [address] 78900- 4300 Aug, [place] [address] 90660- 8669 Jul, Paroxysmal tachycardia I47.9 [place] [address] 30722- 6521 Jul, Paroxysmal tachycardia I47.9 [place] [address] 85852- 8450 Jun, [place] [address] 97405- 5300 Jun, Major depressive disorder in partial remission F32.4 ; FRANCIS ( generalized anxiety disorder) F41.1 and Conversion disorder (or hysterical neurosis, conversion type) F44.9 [facility] [id number] [place] [address] 48906 -1104 May, Pelvic pain R10.2 [facility] [address] 94251 -5770 Apr, Gastroenteritis K52.9 [facility] [address] 80589 -4790 Apr, Blood in urine R31.9 and Acute cystitis with hematuria N30.01 [place] [address] 96194- 4136 Apr, Major depressive disorder in partial remission F32.4 ; FRANCIS ( generalized anxiety disorder) F41.1 and Conversion disorder (or hysterical neurosis, conversion type) F44.9 [facility] [id number] [place] [address] 03203- 2611 Apr, [facility] [id number] [place] [address] 05854- 2403 Apr, Abnormal mammogram R92.8 [facility] [id number] [place] [address] 28572- 1471 Mar, [facility] [address] 11004- 4397 Mar, Gastroenteritis K52.9 and Seizure disorder G40.909 [facility] [id number] [place] [address] 68418- 9064 Dec, [facility] [id number] [place] [address] 98207 -4466 Dec, Other headache syndrome G44.89 [facility] [address] 09805- 6197 Dec, [facility] [id number] [place] [address] 87858- 5005 Dec, Thoracic disc herniation M51.24 [facility] [id number] [place] [address] 92087- 3878 Dec, [facility] [id number] [place] [address] 77984- 2845 Nov, Major depressive disorder in partial remission F32.4 and FRANCIS (generalized anxiety disorder) F41.1 [facility] [id number] [place] [address] 01269- 2727 Nov, [facility] [id number] [place] [address] 01991- 3129 Nov, Dorsalgia, unspecified M54.9 [facility] [address] [address]- 5084 Oct, [facility] [id number] [place] [address] 82560- 1336 September, [facility] [address] [address]- 1626 Aug, [facility] [id number] [place] [address] 42888- 4095 Aug, Major depressive disorder in partial remission F32.4 and FRANCIS (generalized anxiety disorder) F41.1 [facility] [id number] [place] [address] 69649- 0384 Aug, [facility] [address], [place] [address]- 3439 Jul, Abnormal mammogram R92.8 [facility] [id number] [address]- 0874 Jul, [facility] [address] [address]- 8990 Jul, [facility] [id number] [place] [address] 46170- 3563 Jul, [facility] [address], [place] [address]- 2981 Jul, [facility] [address] [address]- 8413 Jul, [facility] [id number] [address]- 9903 Jul, [facility] [address], [place] [address]- 5145 Jun, Major depressive disorder in partial remission F32.4 and FRANCIS (generalized anxiety disorder) F41.1 [facility] [address] [address]- 3665 Jun, [facility] [address] [facility] [id number] [address]- 1801 May, [facility] [id number] [place] [address] 91760- 1386 Apr, [facility] [id number] [address]- 5753 Mar, Major depressive disorder, recurrent episode, moderate F33.1 ; PTSD (post-traumatic stress disorder) F43.10 and FRANCIS (generalized anxiety disorder) F41.1 [facility] [id number] [address]- 4721 Mar, [facility] [id number] [place] [address] 91016- 0787 Mar, [facility] [id number] [place] [address] 74666- 2303 Mar, [facility] [id number] [place] [address] 60227- 6465 Mar, [facility] [address], [place] [address]- 7865 Jan, [facility] [id number] [place] [address] 75583- 4834 15 Jan, 2015 [facility] [address], [place] [address]- 2391 15 Jan, 2015 [facility] [id number] [place] [address] 59949- 5108 14 Jan, 2015 Thoracic disc herniation 722.11 [facility] [address], [place] [address]- 1958 Dec, [facility] [id number] [address]- 0452 Dec, [facility] [address], [place] [address]- 4183 Dec, [facility] [id number], [place] [address]- 7876 16 Nov, 2014 [facility] [id number], [place] [address]- 6667 Nov, Generalized anxiety disorder 300.02 ; Posttraumatic stress disorder 309.81 and Major depressive disorder, recurrent episode, moderate 296.32 [facility] [address], [place] [address]- 5986 Nov, [facility] [address] [facility] [id number], [place] [address]- 0436 Nov, [facility] [id number] [address]- 1627 Oct, [facility] [id number], [place] [address]- 0176 Oct, [facility] [address], [place] [address]- 5316 Oct, [facility] [address], [place] [address]- 2594 September, [facility] [address], [place] [address]- 7374 September, [facility] [address], [place] [address]- 9539 Aug, [facility] [id number], [place] [address]- 5694 Aug, [facility] [id number], [place] [address]- 4276 Jul, [facility] [id number], [place] [address]- 5756 Jul, [facility] [id number], [place] [address]- 1826 Jul, [facility] [id number], [place] [address]- 1656 Jul, [facility] [place] [facility] [address] [id number] [place] [address]- 8051 16 Jul, 2014 [facility] [place] [facility] [address] [id number] [place] [address]- 6577 16 Jul, 2014 [facility] [place] [facility] [address] [id number] [place] [address]- 8353 Jul, 2014 [facility] [place] [facility] [address] [id number] [place] [address]- 2119 Jul, 2014 [facility] [place] [facility] [address] [id number] [place] [address]- 9771 Jul, [facility] [place] [facility] [address] [id number] [place] [address]- 0747 Jul, [facility] [place] [facility] [address] [id number] [place] [address]- 3682 Jun, [facility] [place] [facility] [address] [id number] [place] [address]- 2940 Jun, [facility] [place] [facility] [address] [id number] [place] [address]- 7315 Jun, [facility] [place] [facility] [address] [facility] [id number] [place] [address]- 5485 May, [facility] [place] [facility] [address] [id number] [place] [address]- 9504 Apr, [facility] [place] [facility] [address] [id number] [place] [address]- 4204 Apr, [facility] [place] [facility] [address] [id number] [place] [address]- 9302 Apr, [facility] [place] [facility] [address] [id number] [place] [address]- 9442 Apr, [facility] [place] [facility] [address] [id number] [place] 1839 Apr, [facility] [place] [facility] [address] [id number], [place] [address]- 1112 Apr, [facility] [place] [facility] [address] [id number] [place] [address]- 7107 Apr, [facility] [place] [facility] [address] [id number] [place] [address]- 8223 Apr, [facility] [place] [facility] [address] [id number] [place] [address]- 9299 Mar, [facility] [place] [facility] [address] [id number] [place] [address]- 2237 Mar, [facility] [place] [facility] [address] [id number] [place] [address]- 9464 Mar, [facility] [place] [facility] [address] [id number] [place] [address]- 1833 Mar, [facility] [place] [facility] [address] [id number] [place] [address]- 6867 Mar, [facility] [place] [facility] [address] [id number] [place] [address]- 8291 Mar, [facility] [place] [facility] [address] [id number] [place] [address]- 9613 Mar, [facility] [place] [facility] [address] [id number] [place] [address]- 9079 Mar, [facility] [place] [facility] [address] [id number], [place] [address]- 1220 Mar, [facility] [place] [facility] [address] [id number], [place] [address]- 8103 Mar, [facility] [place] [facility] [address] [id number] [place] [address]- 2040 17 Mar, 2014 [facility] [place] [facility] [address] [id number] [place] [address]- 0003 14 Mar, 2014 [facility] [place] [facility] [address] [id number] [place] [address]- 3115 14 Mar, 2014 [facility] [place] [facility] [address] [id number] [place] [address]- 4384 07 Mar, 2013 [facility] [place] [facility] [address] [id number] [place] [address]- 3329 07 Mar, 2013 [facility] [place] [facility] [address] [id number] [place] [address]- 4902 06 Mar, 2013 [facility] [place] [facility] [address] [id number] [place] [address]- 5585 06 Oct, 2013 [facility] [place] [facility] [address] [id number] [place] [address]- 5963 19 Sep, 2013 [facility] [place] [facility] [address] [id number] [place] [address]- 6397 19 Sep, 2013 [facility] [place] [facility] [address] [id number] [place] [address]- 9248 09 Sep, 2013 [facility] [place] [facility] [address] [id number] [place] [address]- 4683 09 Sep, 2013 [facility] [place] [facility] [address] [id number] [place] [address]- 2545 05 Sep, 2013 [facility] [place] [facility] [address] [id number] [place] [address]- 2543 05 Sep, 2013 [facility] [place] [facility] [address] [id number] [place] [address]- 8977 05 Sep, 2013 [facility] [place] [facility] [address] [id number] [place] [address]- 2540 05 Sep, 2013 [facility] [place] [facility] [address] [id number] [place] [address]- 2545 03 Sep, 2013 [facility] [place] [facility] [address] [id number] [place] [address]- 1843 02 Sep, 2013 [facility] [place] [facility] [address] [id number] [place] [address]- 4178 02 Sep, 2013 [facility] [place] [facility] [address] [id number] [place] [address]- 5514 Jan, [facility] [address] [id number] [place] [address]- 8687 Jan, [facility] [address] [id number] [place] [address]- 1889 Dec, [facility] [address] [id number] [place] [address]- 2277 Dec, [facility] [address] [id number] [place] [address]- 2046 Dec, [facility] [address] [id number] [place] [address]- 5098 Dec, [facility] [address] [id number] [place] [address]- 5728 Dec, [facility] [address] [id number] [place] [address]- 9092 Dec, [facility] [place] [id number] Dec [facility] [id number] Dec [facility] [address] [id number] [place] [address]- 2990 Dec, [facility] [address] [id number] [place] [address]- 9438 Dec, [facility] [place] [facility] [address] [id number] [place] [address]- [address] Dec, [facility] [place] [facility] [address] [id number] [place] [address]- 3536 Dec, [facility] [place] [facility] [address] [id number] [place] [address]- 6713 Nov, [facility] [place] [facility] [address] [id number] [place] [address]- 4566 Nov, [facility] [place] [facility] [address] [id number] [place] [address]- 4040 Nov, [facility] [place] [facility] [address] [id number] [place] [address]- 3150 Nov, [facility] [place] [facility] [address] [id number] [place] [address]- 0459 Nov, [facility] [place] [facility] [address] [id number] [place] [address]- 3791 Nov, [facility] [place] [facility] [address] [id number] [place] [address]- 3932 Nov, [facility] [place] [facility] [address] [id number] [place] [address]- 0989 Nov, [facility] [place] [facility] [address] [id number] [place] [address]- 6457 Nov, [facility] [place] [facility] [address] [id number] [place] [address]- 9426 Nov, [facility] [place] [facility] [address] [id number] [place] [address]- 1183 Nov, [facility] [place] [facility] [address] [id number] [place] [address]- 5141 Nov, [facility] [place] [facility] [address] [id number] [place] [address]- 5714 Nov, [facility] [place] [facility] [address] [id number] [place] [address]- 9613 Oct, [facility] [place] [facility] [address] [id number] [place] [address]- 2604 Oct, [facility] [place] [facility] [address] [id number] [place] [address]- 5402 Oct, [facility] [place] [facility] [address] [id number] [place] [address]- 2042 Oct, [facility] [place] [facility] [address] [id number] [place] [address]- 6124 Oct, [facility] [place] [facility] [address] [id number] [place] [address]- 4709 Oct, [facility] [place] [facility] [address] [id number] [place] [address]- 7402 Oct, [facility] [place] [facility] [address] [id number] [place] [address]- 1100 Oct, [facility] [place] [facility] [address] [id number] [place] [address]- 8343 Oct, [facility] [place] [facility] [address] [id number] [place] [address]- 7491 Oct, [facility] [place] [facility] [address] [id number] [place] [address]- 0604 Oct, [facility] [place] [facility] [address] [id number] [place] [address]- 9148 Oct, [facility] [place] [facility] [address] [id number] [place] [address]- 6392 September, [facility] [place] [facility] [address] [id number] [place] [address]- 3812 September, [facility] [place] [facility] [address] [id number] [place] [address]- 1493 September, [facility] [place] [facility] [address] [id number] [place] [address]- 3102 September, [facility] [place] [facility] [address] [id number] [place] [address]- 9566 Aug, [facility] [place] [facility] [address] [id number] [place] [address]- 3922 Aug, [facility] [place] [facility] [address] [id number] [place] [address] Aug, [facility] [place] [facility] [address] [id number] [place] [address] Aug, [facility] [place] [facility] [address] [id number] [place] [address] Aug, [facility] [place] [facility] [address] [id number] [place] [address] 10 Aug, 2013 [facility] [place] [facility] [address] [id number] [place] [address] 10 Aug, 2013 [facility] [place] [facility] [address] [id number] [place] [address] 28 Jul, 2013 [facility] [place] [facility] [address] [id number] [place] [address] 28 Jul, 2013 [facility] [place] [facility] [address] [id number] [place] [address] Jul, [facility] [place] [facility] [address] [id number] [place] [address] Jul, [facility] [place] [facility] [address] [id number] [place] [address] Jul, [facility] [place] [facility] [address] [id number] [place] [address] 19 Jul, 2013 [facility] [place] [facility] [address] [id number] [place] [address] 18 Jul, 2013 [facility] [place] [facility] [address] [id number] [place] [address] 18 Jul, 2013 [facility] [place] [facility] [address] [id number] [place] [address] 18 Jul, 2013 [facility] [place] [facility] [address] [id number] [place] [address] 18 Jul, 2013 [facility] [place] [facility] [address] [id number] [place] [address]- [address] 18 Jul, 2013 [facility] [place] [facility] [address] [id number] [place] [address]- [address]44 18 Jul, 2013 [facility] [place] [facility] [address] [id number] [place] [address]- [address] 14 Jul, 2013 [facility] [place] [facility] [address] [id number] [place] [address]- [address] 14 Jul, 2013 [facility] [place] [facility] [address] [id number] [place] [address] Jul, [facility] [place] [facility] [address] [id number] [place] [address]- 5827 11 Jul, 2013 [facility] [place] [facility] [address] [id number] [place] [address]- [address] Jul, [facility] [place] [facility] [address] [id number] [place] [address]- [address] Jul, [facility] [place] [facility] [address] [id number] [place] [address]- [address] Jun, [facility] [place] [facility] [address] [id number] [place] [address] Jun, [facility] [place] [facility] [address] [id number] [place] [address]- [address] 15 Jun, 2013 [facility] [place] [facility] [address] [id number] [place] [address]- [address] 15 Jun, 2013 [facility] [place] [facility] [address] [id number] [place] [address] 14 Jun, 2013 [facility] [place] [facility] [address] [id number] [place] [address]- 96[address] 14 Jun, 2013 [facility] [place] [facility] [address] [id number] [place] [address]- 7836 14 Jun, 2013 [facility] [place] [facility] [address] [id number] [place] [address]- [address]268 14 Jun, 2013 [facility] [place] [facility] [address] [id number] [place] [address]- [address] 14 Jun, 2013 [facility] [place] [facility] [address] [id number] [place] [address] 14 Jun, 2013 [facility] [place] [facility] [address] [id number] [place] [address] 27 May, 2013 [facility] [place] [facility] [address] [id number] [place] [address]- [address] 27 May, 2012 [facility] [address] [id number] [place] [address] 26 May, 2013 [facility] [place] [facility] [address] [id number] [place] [address]- [address]206 19 May, 2013 [facility] [address] [id number] [place] [address]- [address]26 19 May, 2013 [facility] [place] [facility] [address] [id number] [place] [address] 16 May, 2013 [facility] [place] [facility] [address] [id number] [place] [address] 16 May, 2013 [facility] [place] [facility] [address] [id number] [place] [address]- [address] 16 May, 2013 [facility] [place] [facility] [address] [id number] [place] [address]- [address] 16 May, 2013 [facility] [address] [id number] [place] [address] 13 May, 2013 [facility] [place] [facility] [address] [id number] [place] [address]- [address]57 13 May, [address] [facility] [place] [facility] [address] [id number] [place] [address] 11 May, 2013 [facility] [place] [facility] [address] [id number] [place] [address] 2794 20 Apr, 2013 [facility] [place] [facility] [address] [id number] [place] [address]- 1650 18 Apr, 2013 [facility] [place] [facility] [address] [id number] [place] [address]- 5768 18 Apr, 2013 [facility] [place] [facility] [address] [id number] [place] [address] 8881 13 Apr, 2013 [facility] [place] [facility] [address] [id number] [place] [address]- 6459 Apr, [facility] [place] [facility] [address] [id number] [place] [address]- 0681 08 Apr, 2013 [facility] [place] [facility] [address] [id number] [place] [address]- 7725 08 Apr, 2013 [facility] [place] [facility] [address] [id number] [place] [address]- 2788 Apr, [facility] [place] [facility] [address] [id number] [place] [address]- 0321 Apr, [facility] [place] [facility] [address] [id number] [place] [address]- 0425 Apr, [facility] [place] [facility] [address] [id number] [place] [address]- 4728 Apr, [facility] [place] [facility] [address] [id number] [place] [address]- 5732 Mar, [facility] [place] [facility] [address] [id number], [place] [address] 1101 Mar, [facility] [place] [facility] [address] [id number] [place] [address] 1931 Mar, [facility] [place] [facility] [address] [id number], [place] [address]- [address] Mar, [facility] [place] [facility] [address] [id number], [place] [address]- 7759 Mar, [facility] [place] [facility] [address] [id number], [place] [address]- 3[address] Mar, [facility] [place] [facility] [address] [id number] [place] [address]- 5671 Mar, [facility] [place] [facility] [address] [id number], [place] [address]- 4155 Mar, [facility] [place] [facility] [address] [id number], [place] [address]- 8274 Mar, [facility] [place] [facility] [address] [id number] [place] [address]- 6693 15 Mar, 2013 [facility] [address] [id number] [place] [address]- 6568 15 Mar, 2013 [facility] [place] [facility] [address] [id number] [place] [address]- 3252 Mar, [facility] [place] [facility] [address] [id number] [place] [address]- 8306 30 Jan, 2013 [facility] [place] [facility] [address] [id number] [place] [address]- 1254 25 Jan, 2013 [facility] [place] [facility] [address] [id number] [place] [address]- 9789 20 Jan, 2013 [facility] [place] [facility] [address] [id number] [place] [address]- 6482 Jan, [facility] [place] [facility] [address] [id number] [place] [address]- 7664 Dec, [facility] [place] [facility] [address] [id number] [place] [address]- 6199 Dec, [facility] [place] [facility] [address] [id number] [place] [address]- 3730 Dec, [facility] [place] [facility] [address] [id number] [place] [address]- 4579 Dec, [facility] [place] [facility] [address] [id number] [place] [address]- 4182 Dec, [facility] [place] [facility] [address] [id number] [place] [address]- 2540 Dec, [facility] [place] [facility] [address] [id number] [place] [address]- 3440 Dec, [facility] [place] [facility] [address] [id number] [place] [address]- 4999 Dec, [facility] [place] [facility] [address] [id number] [place] [address]- 9166 Dec, [facility] [place] [facility] [address] [id number] [place] [address]- 7571 Nov, [facility] [place] [facility] [address] [id number] [place] [address]- 3802 Nov, [facility] [place] [facility] [address] [id number] [place] [address]- 1718 Nov, [facility] [place] [facility] [address] [id number] [place] [address]- 2606 Nov, [facility] [place] [facility] [address] [id number] [place] [address]- 7629 Nov, [facility] [place] [facility] [address] [id number] [place] [address]- 3235 Nov, [facility] [place] [facility] [address] [id number] [place] [address]- 0196 Nov, [facility] [place] [facility] [address] [id number] [place] [address]- 2966 Nov, [facility] [place] [facility] [address] [id number] [place] [address]- 5227 Oct, [facility] [place] [facility] [address] [id number] [place] [address]- 3838 Oct, [facility] [place] [facility] [address] [id number] [place] [address]- 8681 Oct, [facility] [place] [facility] [address] [id number] [place] [address]- 9511 Oct, [facility] [place] [facility] [address] [id number] [place] [address]- 1672 Oct, [facility] [place] [facility] [address] [id number] [place] [address]- 4020 Oct, [facility] [place] [facility] [address] [id number] [place] [address]- 8338 Oct, [facility] [place] [facility] [address] [id number] [place] [address]- 3279 20 Oct, 2012 [facility] [address] [id number] [place] [address]- 1491 19 Oct, 2012 [facility] [place] [facility] [address] [id number] [place] [address]- 5071 18 Oct, 2012 [facility] [place] [facility] [address] [id number] [place] [address]- 8229 17 Oct, 2012 [facility] [place] [facility] [address] [id number] [place] [address]- 0032 14 Oct, 2012 [facility] [place] [facility] [address] [id number] [place] [address]- 4103 07 Oct, 2012 [facility] [place] [facility] [address] [id number] [place] [address]- 3050 30 Sep, 2012 [facility] [place] [facility] [address] [id number] [place] [address]- 6039 September, [facility] [place] [facility] [address] [id number] [place] [address]- 3607 September, [facility] [place] [facility] [address] [id number] [place] [address]- 6274 25 Aug, 2012 [facility] [place] [facility] [address] [id number] [place] [address]- 8786 24 Aug, 2012 [facility] [place] [facility] [address] [id number] [place] [address]- 2605 18 Aug, 2012 [facility] [place] [facility] [address] [id number] [place] [address]- 6036 18 Aug, 2012 [facility] [place] [facility] [address] [id number] [place] [address]- 6539 18 Aug, 2012 [facility] [place] [facility] [address] [id number] [place] [address]- 1529 08 Aug, 2012 [facility] [place] [facility] [address] [id number] [place] [address]- 3878 05 Aug, 2012 [facility] [place] [facility] [address] [id number] [place] [address]- 5774 Jul, [facility] [address] [id number] [place] [address]- 8463 Jul, [facility] [place] [facility] [address] [id number] [place] [address]- 6477 Jul, [facility] [address] [id number] [place] [address]- 4504 Jul, [facility] [place] [facility] [address] [id number] [place] [address]- 3026 Jul, [facility] [place] [facility] [address] [id number] [place] [address]- 6642 Jul, [facility] [place] [facility] [address] [id number] [place] [address]- 1726 Jul, [facility] [place] [facility] [address] [id number] [place] [address]- 5009 Jul, [facility] [address] [id number] [place] [address]- 1741 Jul, [facility] [place] [facility] [address] [id number] [place] [address]- 4951 Jul, [facility] [place] [facility] [address] [facility] [id number] [place] [address]- 1411 Jul, [facility] [place] [facility] [address] [id number] [place] [address]- 5664 Jul, [facility] [place] [facility] [address] [id number] [place] [address]- 9951 Jul, [facility] [place] [facility] [address] [id number] [place] [address]- 9069 Jun, [facility] [place] [facility] [address] [id number] [place] [address]- 5595 Jun, [facility] [place] [facility] [address] [id number] [place] [address]- 0136 19 Jun, 2012 [facility] [address] [id number] [place] [address]- 0878 17 Jun, 2012 [facility] [place] [facility] [address] [id number] [place] [address]- 3676 15 Jun, 2012 [facility] [address] [id number] [place] [address]- 3046 14 Jun, 2012 [facility] [place] [facility] [address] [id number] [place] [address]- 2327 08 Jun, 2012 [facility] [address] [id number] [place] [address]- 6512 28 May, 2012 [facility] [address] [id number] [place] [address]- 2885 28 May, 2012 [facility] [address] [id number] [place] [address]- 0550 May, [facility] [place] [facility] [address] [id number] [place] [address]- 5932 May, [facility] [address] [id number] [place] [address]- 4748 May, [facility] [place] [facility] [address] [id number] [place] [address]- 2313 May, [facility] [place] [facility] [address] [id number] [place] [address]- 5418 May, [facility] [place] [facility] [address] [id number] [place] [address]- 6383 May, [facility] [place] [facility] [address] [id number] [place] [address]- 3256 May, [facility] [place] [facility] [address] [id number] [place] [address]- 4039 May, [facility] [place] [facility] [address] [id number] [place] [address]- 1230 30 Apr, 2012 [facility] [place] [facility] [address] [id number] [place] [address]- 4297 Apr, [facility] [place] [facility] [address] [id number] [place] [address]- 2666 Apr, [facility] [place] [facility] [address] [id number] [place] [address]- 6262 Apr, [facility] [place] [facility] [address] [id number] [place] [address]- 4288 Apr, [facility] [place] [facility] [address] [id number] [place] [address]- 2621 Apr, [facility] [place] [facility] [address] [id number] [place] [address], [place] [address]- 3321 Apr, [facility] [place] [facility] [address] [facility] [id number] [place] [address]- 1421 Apr, [facility] [place] [facility] [address] [facility] [id number] [place] [address]- 4546 Apr, [facility] [place] [facility] [address] [facility] [id number] [place] [address]- 5122 Apr, [facility] [place] [facility] [address] [facility] [id number] [place] [address]- 5434 Apr, [facility] [place] [facility] [address] [facility] [id number] [place] [address]- 5804 Apr, [facility] [place] [facility] [address] [facility] [id number] [place] [address]- 6380 Mar, [facility] [place] [facility] [address] [id number] [place] [address]- 5081 Mar, [facility] [place] [facility] [address] [facility] [id number] [place] [address]- 3544 Mar, [facility] [place] [facility] [address] [facility] [id number] [place] [address]- 7823 Mar, [facility] [place] [facility] [address] [facility] [id number] [place] [address]- 8984 Mar, [facility] [place] [facility] [address] [id number] [place] [address]- 7175 Mar, [facility] [place] [facility] [address] [id number] [place] [address]- 0246 Mar, [facility] [place] [facility] [address] [id number] [place] [address]- 6463 Mar, [facility] [place] [facility] [address] [id number] [place] [address]- 8614 Mar, [facility] [place] [facility] [address] [id number] [place] [address]- 2415 Mar, [facility] [place] [facility] [address] [id number] [place] [address]- 8164 Mar, [facility] [place] [facility] [address] [id number] [place] [address]- 9008 Mar, [facility] [place] [facility] [address] [id number], [place] [address]- 7950 Mar, [facility] [place] [facility] [address] [id number] [place] [address]- 3626 Mar, [facility] [place] [facility] [address] [id number], [place] [address]- 6180 Mar, [facility] [place] [facility] [address] [id number], [place] [address]- 0135 Mar, [facility] [place] [facility] [address] [id number], [place] [address]- 6382 25 Jan, 2012 [facility] [place] [facility] [address] [id number], [place] [address]- 7837 24 Jan, 2012 [facility] [place] [facility] [address] [id number], [place] [address]- 9026 22 Jan, 2012 [facility] [place] [facility] [address] [id number], [place] [address]- 5330 22 Jan, 2012 [facility] [place] [facility] [address] [id number], [place] [address]- 4643 21 Jan, 2012 [facility] [place] [facility] [address] [id number] [place] [address]- 3828 18 Jan, 2012 [facility] [place] [facility] [address] [id number] [place] [address]- 6011 14 Jan, 2012 [facility] [place] [facility] [address] [id number] [place] [address]- 7863 07 Jan, 2012 [facility] [place] [facility] [address] [id number] [place] [address]- 3475 15 Dec, 2011 [facility] [place] [facility] [address] [id number] [place] [address]- 1342 10 Dec, 2011 [facility] [place] [facility] [address] [id number] [place] [address]- 1091 Dec, [facility] [place] [facility] [address] [id number] [place] [address]- 0144 Dec, [facility] [place] [facility] [address] [id number] [place] [address]- 7962 Dec, [facility] [place] [facility] [address] [id number] [place] [address]- 6379 Dec, [facility] [place] [facility] [address] [id number] [place] [address]- 2874 Dec, [facility] [place] [facility] [address] [id number] [place] [address]- 3719 Nov, [facility] [place] [facility] [address] [id number] [place] [address]- 2462 Oct, [facility] [place] [facility] [address] [id number] [place] [address]- 1672 Aug, [facility] [place] [facility] [address] [id number] [place] [address]- 0708 Jul, [facility] [place] [facility] [address] [id number] [place] [address]- 4493 Jul, [facility] [place] [facility] [address] [id number] [place] [address]- 5368 16 Jul, 2011 [facility] [place] [facility] [address] [id number] [place] [address]- 2043 14 Jul, 2011 [facility] [place] [facility] [address] [id number] [place] [address]- 8706 07 Jul, 2011 [facility] [place] [facility] [address] [id number] [place] [address]- 8301 02 Jul, 2011 [facility] [place] [facility] [address] [id number] [place] [address]- 5929 21 Jul, 2011 [facility] [place] [facility] [address] [id number] [place] [address]- 4880 15 Jul, 2011 [facility] [place] [facility] [address] [id number] [place] [address]- 5278 13 Jul, 2011 [facility] [place] [facility] [address] [id number] [place] [address]- 6124 03 Jul, 2011 [facility] [place] [facility] [address] [id number] [place] [address]- 3552 Jul, [facility] [place] [facility] [address] [id number] [place] [address]- 6057 [address], [address] [facility] [place] [facility] [address] [id number] [place] [address]- 8154 24 Jun, 2011 [facility] [place] [facility] [address] [id number] [place] [address]- 6137 Jun, [facility] [place] [facility] [address] [id number] [place] [address]- 9839 Jun, [facility] [place] [facility] [address] [id number] [place] [address]- 0038 Jun, [facility] [place] [facility] [address] [id number] [place] [address]- 5766 05 Jun, 2011 [facility] [place] [facility] [address] [id number] [place] [address]- 8464 Jun, [facility] [place] [facility] [address] [id number] [place] [address]- 4311 May, [facility] [place] [facility] [address] [id number] [place] [address]- 9086 May, [facility] [place] [facility] [address] [id number] [place] [address] May, [facility] [place] [facility] [address] [id number] [place] [address]- 8694 May, [facility] [place] [facility] [address] [id number] [place] [address]- 7658 May, [facility] [place] [facility] [address] [id number] [place] [address]- 1401 May, [facility] [place] [facility] [address] [id number] [place] [address]- 1480 May, [facility] [place] [facility] [address] [id number] [place] [address]- 0367 May, [facility] [place] [facility] [address] [id number] [place] [address]- 0625 May, [facility] [place] [facility] [address] [id number] [place] [address]- 6372 May, [facility] [place] [facility] [address] [id number] [place] [address]- 9106 Apr, [facility] [place] [facility] [address] [id number] [place] [address]- 0475 15 Apr, 2011 [facility] [place] [facility] [address] [id number] [place] [address]- 4735 Apr, [facility] [place] [facility] [address] [id number] [place]459 Apr, [facility] [place] [facility] [address] [id number] [place] [address]- 1677 Mar, [facility] [place] [facility] [address] [facility] [id number] [place] [id number] Mar, [facility] [address] [facility] [id number] [place] [address]- 4375 Mar, [facility] [address] [facility] [id number] [place] [address]- 1160 Mar, IMMUNIZATIONS No Known Immunizations SOCIAL HISTORY Never Assessed REASON FOR VISIT xanax refill PLAN OF CARE VITAL SIGNS MEDICATIONS Medication Instructions Dosage Frequency Start Date End Date Duration Status Alprazolam 1MG Orally 2 times a day as needed for anxiety 1 tablet 30 days Active RESULTS No Results PROCEDURES No Known [...]
[2017-10-27 09:45] VITALS: BP 142/95
[2017-10-27] MEDS ORDERED: LACTATED RINGERS 1,000 ML IV SCH (09:45)
[2017-10-27] MEDS: LACTATED RINGERS 1,000 ML IV STA ×2 (09:45→11:05)
--- OUTSIDE RECORDS SUMMARY | 2017-10-27 09:51 | XMS REPORT ---
Author Author ITZ JUNIOR [facility] Address [address] [place] [address] Care Team Providers Care Properties Supervisor Name Role Phone ROSA JUNIORA Unavailable PROBLEMS Type Condition ICD9-CM Code EFT32-MM Code Onset Dates Condition Status SNOMED Code Problem FRANCIS (generalized anxiety disorder) F41.1 Active 74403794 Problem Thoracic disc herniation M51.24 Active 522389972 Problem Major depressive disorder in partial remission F32.4 Active 59305157 Problem Mild episode of recurrent major depressive disorder F33.0 Active 064625932 Problem Constipation, unspecified constipation type K59.00 Active 42957047 Problem Seizure disorder G40.909 Active 112247240 Problem Conversion disorder (or hysterical neurosis, conversion type) F44.9 Active 33290100 Problem Slow transit constipation K59.01 Active 25077448 Problem Paroxysmal tachycardia I47.9 Active 97327684 ALLERGIES No Information ENCOUNTERS Encounter Location Date Diagnosis [facility] [id number] [place] [address] 94516- 8142 September, [facility] [id number] [place] [address] 15587- 5956 Jul, [facility] [id number] [place] [address] 86830- 8955 Jul, Dorsalgia, unspecified M54.9 [facility] [id number] [place] [address] 96474- 0348 Jul, Mild episode of recurrent major depressive disorder F33.0 and FRANCIS (generalized anxiety disorder) F41.1 [facility] [id number] [place] [address] 64596- 5691 May, [facility] [id number] [place] [address] 20508 -3200 May, Dysuria R30.0 and Acute cystitis with hematuria N30.01 [facility] [id number] [place] [address] 53872- 8296 Apr, [facility] [id number] [place] [address] 60362- 8356 Apr, Major depressive disorder in partial remission F32.4 and FRANCIS (generalized anxiety disorder) F41.1 [facility] [id number] [place] [address] 21475- 4270 Mar, Paroxysmal tachycardia I47.9 [facility] [id number] [place] [address] 89246- 6116 Mar, Paroxysmal tachycardia I47.9 and Pain of left lower extremity M79.605 [facility] [id number] [place] [address] 20103- 1424 Mar, FRANCIS (generalized anxiety disorder) F41.1 and Major depressive disorder in partial remission F32.4 [facility] [id number] [place] [address] 02093- 2186 Jan, [facility] [id number] [place] [address] 22425- 7065 Jan, [facility] [id number] [place] [address] 72153- 7878 Jan, [facility] [id number] [place] [address] 11560 -9989 Dec, Constipation, unspecified constipation type K59.00 [facility] [id number] [place] [address] 33797- 2457 Dec, [facility] [id number] [place] [address] 43339- 9386 Nov, [facility] [id number] [place] [address] 68739- 7798 Nov, Major depressive disorder in partial remission F32.4 and FRANCIS (generalized anxiety disorder) F41.1 [facility] [id number] [place] [address] 90476 -5887 Oct, Abdominal pain R10.9 and Slow transit constipation K59.01 [facility] [id number] [place] [address] 76928- 8163 Aug, Major depressive disorder in partial remission F32.4 ; FRANCIS ( generalized anxiety disorder) F41.1 ; Conversion disorder (or hysterical neurosis, conversion type) F44.9 ; Dorsalgia, unspecified M54.9 and Long-term use of high-risk medication Z79.899 [place] [address] 69550- 2092 Aug, [place] [address] 14596- 5845 Jul, Paroxysmal tachycardia I47.9 [place] [address] 51851- 1426 Jul, Paroxysmal tachycardia I47.9 [place] [address] 16537- 7160 Jun, [place] [address] 56807- 9547 Jun, Major depressive disorder in partial remission F32.4 ; FRANCIS ( generalized anxiety disorder) F41.1 and Conversion disorder (or hysterical neurosis, conversion type) F44.9 [facility] [id number] [place] [address] 03848 -7156 May, Pelvic pain R10.2 [facility] [address] 63834 -4372 Apr, Gastroenteritis K52.9 [facility] [address] 77799 -5089 Apr, Blood in urine R31.9 and Acute cystitis with hematuria N30.01 [place] [address] 94134- 2344 Apr, Major depressive disorder in partial remission F32.4 ; FRANCIS ( generalized anxiety disorder) F41.1 and Conversion disorder (or hysterical neurosis, conversion type) F44.9 [facility] [id number] [place] [address] 24797- 9455 Apr, [facility] [id number] [place] [address] 26059- 9621 Apr, Abnormal mammogram R92.8 [facility] [id number] [place] [address] 46618- 5217 Mar, [facility] [address] 85493- 0457 Mar, Gastroenteritis K52.9 and Seizure disorder G40.909 [facility] [id number] [place] [address] 22757- 1542 Dec, [facility] [id number] [place] [address] 18074 -1354 Dec, Other headache syndrome G44.89 [facility] [address] 00171- 1466 Dec, [facility] [id number] [place] [address] 42217- 1823 Dec, Thoracic disc herniation M51.24 [facility] [id number] [place] [address] 82831- 4736 Dec, [facility] [id number] [place] [address] 26835- 3825 Nov, Major depressive disorder in partial remission F32.4 and FRANCIS (generalized anxiety disorder) F41.1 [facility] [id number] [place] [address] 69724- 7944 Nov, [facility] [id number] [place] [address] 40099- 6616 Nov, Dorsalgia, unspecified M54.9 [facility] [address] [address]- 1447 Oct, [facility] [id number] [place] [address] 34188- 3496 September, [facility] [id number] [address]- 5736 Aug, [facility] [id number] [place] [address] 93610- 0501 Aug, Major depressive disorder in partial remission F32.4 and FRANCIS (generalized anxiety disorder) F41.1 [facility] [id number] [place] [address] 14629- 5928 Aug, [facility] [address] [address]- 3224 Jul, Abnormal mammogram R92.8 [facility] [id number] [address]- 3959 Jul, [facility] [address] [address]- 4459 Jul, [facility] [id number] [place] [address] 74136- 2293 Jul, [facility] [address] [address]- 6703 Jul, [facility] [address] [place] [address]- 2916 Jul, [facility] [id number] [address]- 4155 Jul, [facility] [address] [address]- 9842 Jun, Major depressive disorder in partial remission F32.4 and FRANCIS (generalized anxiety disorder) F41.1 [facility] [address] [address]- 4279 Jun, [facility] [address] [facility] [id number] [address]- 1301 May, [facility] [id number] [place] [address] 94454- 0642 Apr, [facility] [id number] [address]- 3094 Mar, Major depressive disorder, recurrent episode, moderate F33.1 ; PTSD (post-traumatic stress disorder) F43.10 and FRANCIS (generalized anxiety disorder) F41.1 [facility] [id number] [address]- 4206 Mar, [facility] [id number] [place] [address] 07466- 6393 Mar, [facility] [id number] [place] [address] 60470- 8059 Mar, [facility] [id number] [place] [address] 51877- 5496 Mar, [facility] [address] [address]- 6832 Jan, [facility] [id number] [place] [address] 17025- 2487 15 Jan, 2015 [facility] [address] [address]- 4599 15 Jan, 2015 [facility] [id number] [place] [address] 38797- 2191 14 Jan, 2015 Thoracic disc herniation 722.11 [facility] [address] [address]- 0513 Dec, [facility] [id number] [address]- 5641 Dec, [facility] [address], [place] [address]- 7749 Dec, [facility] [id number], [place] [address]- 5416 16 Nov, 2014 [facility] [id number] [address]- 1277 Nov, Generalized anxiety disorder 300.02 ; Posttraumatic stress disorder 309.81 and Major depressive disorder, recurrent episode, moderate 296.32 [facility] [address], [place] [address]- 2526 Nov, [facility] [address] [facility] [id number], [place] [address]- 0976 Nov, [facility] [id number] [address]- 7410 Oct, [facility] [id number], [place] [address]- 0426 Oct, [facility] [address], [place] [address]- 3766 Oct, [facility] [address], [place] [address]- 5020 September, [facility] [address], [place] [address]- 1004 September, [facility] [address], [place] [address]- 5413 Aug, [facility] [id number], [place] [address]- 0556 Aug, [facility] [id number], [place] [address]- 4096 Jul, [facility] [id number], [place] [address]- 6376 Jul, [facility] [id number], [place] [address]- 9396 Jul, [facility] [id number] [address]- 3446 Jul, [facility] [place] [facility] [address] [id number] [place] [address]- 0376 16 Jul, 2014 [facility] [place] [facility] [address] [id number] [place] [address]- 2099 16 Jul, 2014 [facility] [place] [facility] [address] [id number] [place] [address]- 3665 Jul, 2014 [facility] [place] [facility] [address] [id number] [place] [address]- 9665 Jul, 2014 [facility] [place] [facility] [address] [id number] [place] [address]- 8072 Jul, [facility] [place] [facility] [address] [id number] [place] [address]- 0679 Jul, [facility] [place] [facility] [address] [id number] [place] [address]- 5274 Jun, [facility] [place] [facility] [address] [id number] [place] [address]- 0880 Jun, [facility] [place] [facility] [address] [id number] [place] [address]- 0839 Jun, [facility] [place] [facility] [address] [facility] [id number] [place] [address]- 7800 May, [facility] [place] [facility] [address] [id number] [place] [address]- 2778 Apr, [facility] [place] [facility] [address] [id number] [place] [address]- 9753 Apr, [facility] [place] [facility] [address] [id number] [place] [address]- 5810 Apr, [facility] [place] [facility] [address] [id number] [place] [address]- 5803 Apr, [facility] [place] [facility] [address] [id number] [place] 6277 Apr, [facility] [place] [facility] [address] [id number], [place] [address]- 0873 Apr, [facility] [place] [facility] [address] [id number] [place] [address]- 0503 Apr, [facility] [place] [facility] [address] [id number] [place] [address]- 5388 Apr, [facility] [place] [facility] [address] [id number] [place] [address]- 8486 Mar, [facility] [place] [facility] [address] [id number] [place] [address]- 3108 Mar, [facility] [place] [facility] [address] [id number] [place] [address]- 2834 Mar, [facility] [place] [facility] [address] [id number] [place] [address]- 5494 Mar, [facility] [place] [facility] [address] [id number] [place] [address]- 7158 Mar, [facility] [place] [facility] [address] [id number] [place] [address]- 8645 Mar, [facility] [place] [facility] [address] [id number] [place] [address]- 3032 Mar, [facility] [place] [facility] [address] [id number] [place] [address]- 5717 Mar, [facility] [place] [facility] [address] [id number], [place] [address]- 0108 Mar, [facility] [place] [facility] [address] [id number], [place] [address]- 6788 Mar, [facility] [place] [facility] [address] [id number] [place] [address]- 0316 17 Mar, 2014 [facility] [place] [facility] [address] [id number] [place] [address]- 4100 14 Mar, 2014 [facility] [place] [facility] [address] [id number] [place] [address]- 8576 14 Mar, 2014 [facility] [place] [facility] [address] [id number] [place] [address]- 0187 07 Mar, 2013 [facility] [place] [facility] [address] [id number] [place] [address]- 0939 07 Mar, 2013 [facility] [place] [facility] [address] [id number] [place] [address]- 6909 06 Mar, 2013 [facility] [place] [facility] [address] [id number] [place] [address]- 8750 06 Oct, 2013 [facility] [place] [facility] [address] [id number] [place] [address]- 3986 19 Sep, 2013 [facility] [place] [facility] [address] [id number] [place] [address]- 1088 19 Sep, 2013 [facility] [place] [facility] [address] [id number] [place] [address]- 7068 09 Sep, 2013 [facility] [place] [facility] [address] [id number] [place] [address]- 0804 09 Sep, 2013 [facility] [place] [facility] [address] [id number] [place] [address]- 254 05 Sep, 2013 [facility] [place] [facility] [address] [id number] [place] [address]- 2543 05 Sep, 2013 [facility] [place] [facility] [address] [id number] [place] [address]- 9701 05 Sep, 2013 [facility] [place] [facility] [address] [id number] [place] [address]- 2547 05 Sep, 2013 [facility] [place] [facility] [address] [id number] [place] [address]- 2544 03 Sep, 2013 [facility] [place] [facility] [address] [id number] [place] [address]- 3989 02 Sep, 2013 [facility] [place] [facility] [address] [id number] [place] [address]- 9251 02 Sep, 2013 [facility] [place] [facility] [address] [id number] [place] [address]- 8421 Jan, [facility] [address] [id number] [place] [address]- 7110 Jan, [facility] [address] [id number] [place] [address]- 9604 Dec, [facility] [address] [id number] [place] [address]- 1215 Dec, [facility] [address] [id number] [place] [address]- 4793 Dec, [facility] [address] [id number] [place] [address]- 4187 Dec, [facility] [address] [id number] [place] [address]- 2964 Dec, [facility] [address] [id number] [place] [address]- 0990 Dec, [facility] 1 [facility] [id number] Dec [facility] 1 [facility] [id number] Dec [facility] [address] [id number] [place] [address]- 4397 Dec, [facility] [address] [id number] [place] [address]- 9452 Dec, [facility] [place] [facility] [address] [id number] [place] [address]- 2298 Dec, [facility] [place] [facility] [address] [id number] [place] [address]- 6390 Dec, [facility] [place] [facility] [address] [id number] [place] [address]- 1595 Nov, [facility] [place] [facility] [address] [id number] [place] [address]- 3430 Nov, [facility] [place] [facility] [address] [id number] [place] [address]- 1635 Nov, [facility] [place] [facility] [address] [id number] [place] [address]- 8436 Nov, [facility] [place] [facility] [address] [id number] [place] [address]- 1875 Nov, [facility] [place] [facility] [address] [id number] [place] [address]- 7149 Nov, [facility] [place] [facility] [address] [id number] [place] [address]- 0965 Nov, [facility] [place] [facility] [address] [id number] [place] [address]- 9147 Nov, [facility] [place] [facility] [address] [id number] [place] [address]- 8262 Nov, [facility] [place] [facility] [address] [id number] [place] [address]- 3875 Nov, [facility] [place] [facility] [address] [id number] [place] [address]- 6459 Nov, [facility] [place] [facility] [address] [id number] [place] [address]- 2392 Nov, [facility] [place] [facility] [address] [id number] [place] [address]- 5520 Nov, [facility] [place] [facility] [address] [id number] [place] [address]- 3384 Oct, [facility] [place] [facility] [address] [id number] [place] [address]- 0423 Oct, [facility] [place] [facility] [address] [id number] [place] [address]- 5933 Oct, [facility] [place] [facility] [address] [id number] [place] [address]- 7742 Oct, [facility] [place] [facility] [address] [id number] [place] [address] Oct, [facility] [place] [facility] [address] [id number] [place] [address] Oct, [facility] [place] [facility] [address] [id number] [place] [address] Oct, [facility] [place] [facility] [address] [id number] [place] [address] Oct, [facility] [place] [facility] [address] [id number] [place] [address] Oct, [facility] [place] [facility] [address] [id number] [place] [address] Oct, [facility] [place] [facility] [address] [id number] [place] [address] Oct, [facility] [place] [facility] [address] [id number] [place] [address] Oct, [facility] [place] [facility] [address] [id number] [place] [address] September, [facility] [place] [facility] [address] [id number] [place] [address] September, [facility] [place] [facility] [address] [id number] [place] [address] September, [facility] [place] [facility] [address] [id number] [place] [address] September, [facility] [place] [facility] [address] [id number] [place] [address] Aug, [facility] [place] [facility] [address] [id number] [place] [address] Aug, [facility] [place] [facility] [address] [id number] [place] [address] Aug, [facility] [place] [facility] [address] [id number] [place] [address] Aug, [facility] [place] [facility] [address] [id number] [place] [address] Aug, [facility] [place] [facility] [address] [id number] [place] [address] 10 Aug, 2013 [facility] [place] [facility] [address] [id number] [place] [address] 10 Aug, 2013 [facility] [place] [facility] [address] [id number] [place] [address] 28 Jul, 2013 [facility] [place] [facility] [address] [id number] [place] [address] 28 Jul, 2013 [facility] [place] [facility] [address] [id number] [place] [address] Jul, [facility] [place] [facility] [address] [id number] [place] [address] Jul, [facility] [place] [facility] [address] [id number] [place] [address] Jul, [facility] [place] [facility] [address] [id number] [place] [address]- [address] 19 Jul, 2013 [facility] [place] [facility] [address] [id number] [place] [address] 18 Jul, 2013 [facility] [place] [facility] [address] [id number] [place] [address] 18 Jul, 2013 [facility] [place] [facility] [address] [id number] [place] [address]- [address] 18 Jul, 2013 [facility] [place] [facility] [address] [id number] [place] [address]- [address] 18 Jul, 2013 [facility] [place] [facility] [address] [id number] [place] [address]- [address] 18 Jul, 2013 [facility] [place] [facility] [address] [id number] [place] [address]- [address] 18 Jul, 2013 [facility] [place] [facility] [address] [id number] [place] [address]- [address] 14 Jul, 2013 [facility] [place] [facility] [address] [id number] [place] [address] 14 Jul, 2013 [facility] [place] [facility] [address] [id number] [place] [address] Jul, [facility] [place] [facility] [address] [id number] [place] [address] 11 Jul, 2013 [facility] [place] [facility] [address] [id number] [place] [address] Jul, [facility] [place] [facility] [address] [id number] [place] [address] Jul, [facility] [place] [facility] [address] [id number] [place] [address] Jun, [facility] [place] [facility] [address] [id number] [place] [address] Jun, [facility] [place] [facility] [address] [id number] [place] [address] 15 Jun, 2013 [facility] [place] [facility] [address] [id number] [place] [address]- [address] 15 Jun, 2013 [facility] [place] [facility] [address] [id number] [place] [address]- [address] 14 Jun, 2013 [facility] [place] [facility] [address] [id number] [place] [address]- 85[address] 14 Jun, 2013 [facility] [place] [facility] [address] [id number] [place] [address]- [address] 14 Jun, 2013 [facility] [place] [facility] [address] [id number] [place] [address]- [address] 14 Jun, 2013 [facility] [place] [facility] [address] [id number] [place] [address]- [address] 14 Jun, 2013 [facility] [place] [facility] [address] [id number] [place] [address]- [address] 14 Jun, 2013 [facility] [place] [facility] [address] [id number] [place] [address]- [address] 27 May, 2013 [facility] [place] [facility] [address] [id number] [place] [address] 27 May, 2012 [facility] [address] [id number] [place] [address] 1946 26 May, 2013 [facility] [place] [facility] [address] [id number] [place] [address] 5576 19 May, 2013 [facility] [address] [id number] [place] [address]- 8466 19 May, 2013 [facility] [place] [facility] [address] [id number] [place] [address]77 16 May, 2013 [facility] [place] [facility] [address] [id number] [place] [address] 16 May, 2013 [facility] [place] [facility] [address] [id number] [place] [address]- 3528 16 May, 2013 [facility] [place] [facility] [address] [id number] [place] [address]- 3644 16 May, 2013 [facility] [address] [id number] [place] [address]- 6150 13 May, 2013 [facility] [place] [facility] [address] [id number] [place] [address]- 3722 13 May, 2013 [facility] [place] [facility] [address] [id number] [place] [address]- 8873 11 May, 2013 [facility] [place] [facility] [address] [id number] [place] [address]- 5230 20 Apr, 2013 [facility] [place] [facility] [address] [id number] [place] [address]- 8211 18 Apr, 2013 [facility] [place] [facility] [address] [id number] [place] [address]- 7731 18 Apr, 2013 [facility] [place] [facility] [address] [id number] [place] [address]- 8296 13 Apr, 2013 [facility] [place] [facility] [address] [id number] [place] [address]- 5379 Apr, [facility] [place] [facility] [address] [id number] [place] [address]- 5056 08 Apr, 2013 [facility] [place] [facility] [address] [id number] [place] [address]- 2470 08 Apr, 2013 [facility] [place] [facility] [address] [id number] [place] [address]- 2317 Apr, [facility] [place] [facility] [address] [id number] [place] [address]- 9002 Apr, [facility] [place] [facility] [address] [id number] [place] [address]- 7362 Apr, [facility] [place] [facility] [address] [id number] [place] [address]- 4481 Apr, [facility] [place] [facility] [address] [id number] [place] [address]- 0738 Mar, [facility] [place] [facility] [address] [id number], [place] [address]- 0107 Mar, [facility] [place] [facility] [address] [id number] [place] [address]- 2865 Mar, [facility] [place] [facility] [address] [id number], [place] [address] 1945 Mar, [facility] [place] [facility] [address] [id number], [place] [address]- 6284 Mar, [facility] [place] [facility] [address] [id number], [place] [address]- 6368 Mar, [facility] [place] [facility] [address] [id number] [place] [address]- 8123 Mar, [facility] [place] [facility] [address] [id number], [place] [address]- 5139 Mar, [facility] [place] [facility] [address] [id number], [place] [address]- 0862 Mar, [facility] [place] [facility] [address] [id number] [place] [address]- 5836 15 Mar, 2013 [facility] [address] [id number] [place] [address]- 2053 15 Mar, 2013 [facility] [place] [facility] [address] [id number] [place] [address]- 3666 Mar, [facility] [place] [facility] [address] [id number] [place] [address]- 0255 30 Jan, 2013 [facility] [place] [facility] [address] [id number] [place] [address]- 8698 25 Jan, 2013 [facility] [place] [facility] [address] [id number] [place] [address]- 6022 20 Jan, 2013 [facility] [place] [facility] [address] [id number] [place] [address]- 1558 Jan, [facility] [place] [facility] [address] [id number] [place] [address]- 7643 Dec, [facility] [place] [facility] [address] [id number] [place] [address]- 7820 Dec, [facility] [place] [facility] [address] [id number] [place] [address]- 3461 Dec, [facility] [place] [facility] [address] [id number] [place] [address]- 8472 Dec, [facility] [place] [facility] [address] [id number] [place] [address]- 4985 Dec, [facility] [place] [facility] [address] [id number] [place] [address]- 2543 Dec, [facility] [place] [facility] [address] [id number] [place] [address]- 3632 Dec, [facility] [place] [facility] [address] [id number] [place] [address]- 8062 Dec, [facility] [place] [facility] [address] [id number] [place] [address]- 5528 Dec, [facility] [place] [facility] [address] [id number] [place] [address]- 3499 Nov, [facility] [place] [facility] [address] [id number] [place] [address]- 5181 Nov, [facility] [place] [facility] [address] [id number] [place] [address]- 7021 Nov, [facility] [place] [facility] [address] [id number] [place] [address]- 9327 Nov, [facility] [place] [facility] [address] [id number] [place] [address]- 0995 Nov, [facility] [place] [facility] [address] [id number] [place] [address]- 0837 Nov, [facility] [place] [facility] [address] [id number] [place] [address]- 1211 Nov, [facility] [place] [facility] [address] [id number] [place] [address]- 2069 Nov, [facility] [place] [facility] [address] [id number] [place] [address]- 1363 Oct, [facility] [place] [facility] [address] [id number] [place] [address]- 6180 Oct, [facility] [place] [facility] [address] [id number] [place] [address]- 6666 Oct, [facility] [place] [facility] [address] [id number] [place] [address]- 6635 Oct, [facility] [place] [facility] [address] [id number] [place] [address]- 5418 Oct, [facility] [place] [facility] [address] [id number] [place] [address]- 4688 Oct, [facility] [place] [facility] [address] [id number] [place] [address]- 5654 Oct, [facility] [place] [facility] [address] [id number] [place] [address]- 4174 20 Oct, 2012 [facility] [address] [id number] [place] [address]- 9265 19 Oct, 2012 [facility] [place] [facility] [address] [id number] [place] [address]- 1320 18 Oct, 2012 [facility] [place] [facility] [address] [id number] [place] [address]- 3549 17 Oct, 2012 [facility] [place] [facility] [address] [id number] [place] [address] 4225 14 Oct, 2012 [facility] [place] [facility] [address] [id number] [place] [address]- 5716 07 Oct, 2012 [facility] [place] [facility] [address] [id number] [place] [address]- 2963 30 Sep, 2012 [facility] [place] [facility] [address] [id number] [place] [address]- 2290 September, [facility] [place] [facility] [address] [id number] [place] [address]- 4988 September, [facility] [place] [facility] [address] [id number] [place] [address]- 6676 25 Aug, 2012 [facility] [place] [facility] [address] [id number] [place] [address]- 5639 24 Aug, 2012 [facility] [place] [facility] [address] [id number] [place] [address]- 7818 18 Aug, 2012 [facility] [place] [facility] [address] [id number] [place] [address]- 1885 18 Aug, 2012 [facility] [place] [facility] [address] [id number] [place] [address]- 5013 18 Aug, 2012 [facility] [place] [facility] [address] [id number] [place] [address]- 1043 08 Aug, 2012 [facility] [place] [facility] [address] [id number] [place] [address]- 6774 05 Aug, 2012 [facility] [place] [facility] [address] [id number] [place] [address]- 1354 Jul, [facility] [address] [id number] [place] [address]- 2995 Jul, [facility] [place] [facility] [address] [id number] [place] [address]- 0111 Jul, [facility] [address] [id number] [place] [address]- 8197 Jul, [facility] [place] [facility] [address] [id number] [place] [address]- 5912 Jul, [facility] [place] [facility] [address] [id number] [place] [address]- 1984 Jul, [facility] [place] [facility] [address] [id number] [place] [address]- 5242 Jul, [facility] [place] [facility] [address] [id number] [place] [address]- 4580 Jul, [facility] [address] [id number] [place] [address]- 1467 Jul, [facility] [place] [facility] [address] [id number] [place] [address]- 3480 Jul[facility] [place] [facility] [address] [facility] [id number] [place] [address]- 9652 Jul, [facility] [place] [facility] [address] [id number] [place] [address]- 5693 Jul, [facility] [place] [facility] [address] [id number] [place] [address]- 7027 Jul, [facility] [place] [facility] [address] [id number] [place] [address]- 0603 Jun, [facility] [place] [facility] [address] [id number] [place] [address]- 1877 Jun, [facility] [place] [facility] [address] [id number] [place] [address]- 0476 19 Jun, 2012 [facility] [address] [id number] [place] [address]- 2066 17 Jun, 2012 [facility] [place] [facility] [address] [id number] [place] [address]- 6706 15 Jun, 2012 [facility] [address] [id number] [place] [address]- 5136 14 Jun, 2012 [facility] [place] [facility] [address] [id number] [place] [address]- 0423 08 Jun, 2012 [facility] [address] [id number] [place] [address]- 5071 28 May, 2012 [facility] [address] [id number] [place] [address]- 2734 28 May, 2012 [facility] [address] [id number] [place] [address]- 2936 May, [facility] [place] [facility] [address] [id number] [place] [address]- 3186 May, [facility] [address] [id number] [place] [address]- 4541 May, [facility] [place] [facility] [address] [id number] [place] [address]- 8994 May, [facility] [place] [facility] [address] [id number] [place] [address]- 2584 May, [facility] [place] [facility] [address] [id number] [place] [address]- 0703 May, [facility] [place] [facility] [address] [id number] [place] [address]- 5526 May, [facility] [place] [facility] [address] [id number] [place] [address]- 9038 May, [facility] [place] [facility] [address] [id number] [place] [address]- 1227 30 Apr, 2012 [facility] [place] [facility] [address] [id number] [place] [address]- 5092 Apr, [facility] [place] [facility] [address] [id number] [place] [address]- 9427 Apr, [facility] [place] [facility] [address] [id number] [place] [address]- 5551 Apr, [facility] [place] [facility] [address] [id number] [place] [address]- 8765 Apr, [facility] [place] [facility] [address] [id number] [place] [address]- 8212 Apr, [facility] [place] [facility] [id number] [place] [address], [place] [address]- 3422 Apr, [facility] [place] [facility] [address] [facility] [id number] [place] [address]- 1034 Apr, [facility] [place] [facility] [address] [facility] [id number] [place] [address]- 5772 Apr, [facility] [place] [facility] [address] [facility] [id number] [place] [address]- 2066 Apr, [facility] [place] [facility] [address] [facility] [id number] [place] [address]- 6620 Apr, [facility] [place] [facility] [address] [facility] [id number] [place] [address]- 4784 Apr, [facility] [place] [facility] [address] [facility] [id number] [place] [address]- 4354 Mar, [facility] [place] [facility] [address] [id number] [place] [address]- 6087 Mar, [facility] [place] [facility] [address] [facility] [id number] [place] [address]- 5168 Mar, [facility] [place] [facility] [address] [facility] [id number] [place] [address]- 2589 Mar, [facility] [place] [facility] [address] [facility] [id number] [place] [address]- 1642 Mar, [facility] [place] [facility] [address] [id number] [place] [address]- 9489 Mar, [facility] [place] [facility] [address] [id number] [place] [address]- 0401 Mar, [facility] [place] [facility] [address] [id number] [place] [address]- 5765 Mar, [facility] [place] [facility] [address] [id number] [place] [address]- 3796 Mar, [facility] [place] [facility] [address] [id number] [place] [address]- 8245 Mar, [facility] [place] [facility] [address] [id number] [place] [address]- 8335 Mar, [facility] [place] [facility] [address] [id number] [place] [address]- 6451 Mar, [facility] [place] [facility] [address] [id number], [place] [address]- 2103 Mar, [facility] [place] [facility] [address] [id number] [place] [address]- 2431 Mar, [facility] [place] [facility] [address] [id number], [place] [address]- 3145 Mar, [facility] [place] [facility] [address] [id number], [place] [address]- 9257 Mar, [facility] [place] [facility] [address] [id number], [place] [address]- 9068 25 Jan, 2012 [facility] [place] [facility] [address] [id number], [place] [address]- 2040 24 Jan, 2012 [facility] [place] [facility] [address] [id number], [place] [address]- 9840 22 Jan, 2012 [facility] [place] [facility] [address] [id number], [place] [address]- 1269 22 Jan, 2012 [facility] [place] [facility] [address] [id number], [place] [address]- 8479 21 Jan, 2012 [facility] [place] [facility] [address] [id number] [place] [address]- 7760 18 Jan, 2012 [facility] [place] [facility] [address] [id number] [place] [address]- 5794 14 Jan, 2012 [facility] [place] [facility] [address] [id number] [place] [address]- 1984 07 Jan, 2012 [facility] [place] [facility] [address] [id number] [place] [address]- 6782 15 Dec, 2011 [facility] [place] [facility] [address] [id number] [place] [address]- 5819 10 Dec, 2011 [facility] [place] [facility] [address] [id number] [place] [address]- 4007 Dec, [facility] [place] [facility] [address] [id number] [place] [address]- 3138 Dec, [facility] [place] [facility] [address] [id number] [place] [address]- 4775 Dec, [facility] [place] [facility] [address] [id number] [place] [address]- 2184 Dec, [facility] [place] [facility] [address] [id number] [place] [address]- 6505 Dec, [facility] [place] [facility] [address] [id number] [place] [address]- 2755 Nov, [facility] [place] [facility] [address] [id number] [place] [address]- 5613 Oct, [facility] [place] [facility] [address] [id number] [place] [address]- 5132 Aug, [facility] [place] [facility] [address] [id number] [place] [address]- 6894 Jul, [facility] [place] [facility] [address] [id number] [place] [address]- 2274 Jul, [facility] [place] [facility] [address] [id number] [place] [address]- 6132 16 Jul, 2011 [facility] [place] [facility] [address] [id number] [place] [address]- 6540 14 Jul, 2011 [facility] [place] [facility] [address] [id number] [place] [address]- 8776 07 Jul, 2011 [facility] [place] [facility] [address] [id number] [place] [address]- 0673 02 Jul, 2011 [facility] [place] [facility] [address] [id number] [place] [address]- 6847 21 Jul, 2011 [facility] [place] [facility] [address] [id number] [place] [address]- 7531 15 Jul, 2011 [facility] [place] [facility] [address] [id number] [place] [address]- 9480 13 Jul, 2011 [facility] [place] [facility] [address] [id number] [place] [address]- 8886 03 Jul, 2011 [facility] [place] [facility] [address] [id number] [place] [address]- 9044 Jul, [facility] [place] [facility] [address] [id number] [place] [address]- 6714 24 Jun, 2011 [facility] [place] [facility] [address] [id number] [place] [address]- 9457 24 Jun, 2011 [facility] [place] [facility] [address] [id number] [place] [address]- 8074 Jun, [facility] [place] [facility] [address] [id number] [place] [address]- 1863 Jun, [facility] [place] [facility] [address] [id number] [place] [address]- 6929 Jun, [facility] [place] [facility] [address] [id number] [place] [address]- 3475 05 Jun, 2011 [facility] [place] [facility] [address] [id number] [place] [address]- 2755 Jun, [facility] [place] [facility] [address] [id number] [place] [address]- 9354 May, [facility] [place] [facility] [address] [id number] [place] [address]- 9486 May, [facility] [place] [facility] [address] [id number] [place] 9222 May, [facility] [place] [facility] [address] [id number] [place] [address]- 7624 May, [facility] [place] [facility] [address] [id number] [place] [address]- 9332 May, [facility] [place] [facility] [address] [id number] [place] [address]- 2464 May, [facility] [place] [facility] [address] [id number] [place] [address]- 7870 May, [facility] [place] [facility] [address] [id number] [place] [address]- 0819 May, [facility] [place] [facility] [address] [id number] [place] [address]- 3724 May, [facility] [place] [facility] [address] [id number] [place] [address]- 4759 May, [facility] [place] [facility] [address] [id number] [place] [address]- 9976 Apr, [facility] [place] [facility] [address] [id number] [place] [address]- 7734 15 Apr, 2011 [facility] [place] [facility] [address] [id number] [place] [address] Apr, [facility] [place] [facility] [address] [id number] [place] [address] Apr, [facility] [place] [facility] [address] [id number] [place] [address] Mar, [facility] [place] [facility] [address] [facility] [id number] [place] [id number] Mar, [facility] [address] [facility] [id number] [place] [address] Mar, [facility] [address] [facility] [id number] [place] [address] Mar, IMMUNIZATIONS No Known Immunizations SOCIAL HISTORY Never Assessed REASON FOR VISIT xanax refill 02/12/2017 PLAN OF CARE VITAL SIGNS MEDICATIONS Medication [...]
--- OUTSIDE RECORDS SUMMARY | 2017-10-27 09:51 | XMS REPORT ---
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 Active 01547207 Problem FRANCIS (generalized anxiety disorder) F41.1 Active 69295089 Problem Constipation, unspecified constipation type K59.00 Active 56985458 Problem Slow transit constipation K59.01 Active 85888818 Problem Conversion disorder (or hysterical neurosis, conversion type) F44.9 Active 41503929 Problem Thoracic disc herniation M51.24 Active 608541689 Problem Paroxysmal tachycardia I47.9 Active 29558892 Problem Seizure disorder G40.909 Active [id number] ALLERGIES No Information SOCIAL HISTORY Never Assessed PLAN OF CARE VITAL SIGNS MEDICATIONS Unknown Medications RESULTS Name Result Date Reference Range TSH 2016-08-13 TSH 1.030 0.450-4.500 CMP 2016-08-13 Glucose, Serum 101 65-99 BUN 11 6-24 Creatinine, Serum 0.85 0.57-1.00 eGFR If NonAfricn Am 82 >59 eGFR If Africn Am 94 >59 BUN/Creatinine Ratio 13 9-23 Sodium, Serum 144 134-144 Potassium, Serum 4.5 3.5-5.2 Chloride, Serum 101 96-106 Carbon Dioxide, Total 28 18-29 Calcium, Serum 9.4 8.7-10.2 Protein, Total, Serum 7.2 6.0-8.5 Albumin, Serum 4.5 3.5-5.5 Globulin, Total 2.7 1.5-4.5 A/G Ratio 1.7 1.2-2.2 Bilirubin, Total 0.3 0.0-1.2 Alkaline Phosphatase, S 70 39-117 AST (SGOT) 13 0-40 ALT (SGPT) 14 0-32 PROCEDURES Procedure Date Ordered Result Body Site ASSAY THYROID STIM HORMONE August 13, 2016 COMPREHEN METABOLIC PANEL August 13, 2016 VENIPUNCT, ROUTINE* August 13, 2016 IMMUNIZATIONS No Known Immunizations MEDICAL (GENERAL) HISTORY Type Description Date Medical History fibromyalgia Medical History seizures Medical History anxiety Medical History Pseudo seizures Surgical History cholecystectomy Surgical History tubal ligation Surgical History hysterectomy Surgical History tonsillectomy Surgical History carpal tunnel release Surgical History breast reduction Surgical History Bladder sling/stretch 06/2016 Hospitalization History surgeries Hospitalization History [facility] 03/24/16
--- OUTSIDE RECORDS SUMMARY | 2017-10-27 09:52 | XMS REPORT ---
Author Author SABIHA MAST [facility] Address [address] [place] [address] Care Team Providers Care Light Bulb Replacer Name Role Phone SABIHA MAST Unavailable PROBLEMS Type Condition ICD9-CM Code SWB42-CC Code Onset Dates Condition Status SNOMED Code Problem FRANCIS (generalized anxiety disorder) F41.1 Active 49687383 Problem Thoracic disc herniation M51.24 Active 673778065 Problem Major depressive disorder in partial remission F32.4 Active 36258584 Problem Mild episode of recurrent major depressive disorder F33.0 Active 595289714 Problem Constipation, unspecified constipation type K59.00 Active 90204594 Problem Seizure disorder G40.909 Active 357267613 Problem Conversion disorder (or hysterical neurosis, conversion type) F44.9 Active 02670569 Problem Slow transit constipation K59.01 Active 68792993 Problem Paroxysmal tachycardia I47.9 Active [id number] ALLERGIES No Information ENCOUNTERS Encounter Location Date Diagnosis [facility] [id number] [place] [address] 06757- 8373 September, [facility] [id number] [place] [address] 54263- 9011 Jul, [facility] [address] 01520- 7470 Jul, Dorsalgia, unspecified M54.9 [facility] [id number] [place] [address] 60710- 5829 Jul, Mild episode of recurrent major depressive disorder F33.0 and FRANCIS (generalized anxiety disorder) F41.1 [facility] [id number] [place] [address] 99224- 2133 May, [facility] [address] 22987 -3357 May, Dysuria R30.0 and Acute cystitis with hematuria N30.01 [facility] [address] [place] [address] 64006- 1290 Apr, [facility] [id number] [place] [address] 56376- 7376 Apr, Major depressive disorder in partial remission F32.4 and FRANCIS (generalized anxiety disorder) F41.1 [facility] [id number] [place] [address] 98082- 6055 Mar, Paroxysmal tachycardia I47.9 [facility] [id number] [place] [address] 71064- 1906 Mar, Paroxysmal tachycardia I47.9 and Pain of left lower extremity M79.605 [facility] [id number] [place] [address] 44153- 3810 Mar, FRANCIS (generalized anxiety disorder) F41.1 and Major depressive disorder in partial remission F32.4 [facility] [id number] [place] [address] 98689- 6689 Jan, [facility] [id number] [place] [address] 31529- 2283 Jan, [facility] [id number] [place] [address] 79816- 1619 Jan, [facility] [id number] [place] [address] 96459 -0366 Dec, Constipation, unspecified constipation type K59.00 [facility] [id number] [place] [address] 35963- 9113 Dec, [facility] [id number] [place] [address] 96620- 8616 Nov, [facility] [address] [place] [address] 66648- 4191 Nov, Major depressive disorder in partial remission F32.4 and FRANCIS (generalized anxiety disorder) F41.1 [facility] [id number] [place] [address] 85137 -7531 Oct, Abdominal pain R10.9 and Slow transit constipation K59.01 [facility] [id number] [place] [address] 42421- 8700 Aug, Major depressive disorder in partial remission F32.4 ; FRANCIS ( generalized anxiety disorder) F41.1 ; Conversion disorder (or hysterical neurosis, conversion type) F44.9 ; Dorsalgia, unspecified M54.9 and Long-term use of high-risk medication Z79.899 [place] [address] 56869- 6180 Aug, [place] [address] 17732- 9128 Jul, Paroxysmal tachycardia I47.9 [place] [address] 93533- 5093 Jul, Paroxysmal tachycardia I47.9 [place] [address] 35800- 7255 Jun, [place] [address] 18899- 6905 Jun, Major depressive disorder in partial remission F32.4 ; FRANCIS ( generalized anxiety disorder) F41.1 and Conversion disorder (or hysterical neurosis, conversion type) F44.9 [facility] [id number] [place] [address] 74605 -2562 May, Pelvic pain R10.2 [facility] [address] 21398 -4925 Apr, Gastroenteritis K52.9 [facility] [address] 45754 -5008 Apr, Blood in urine R31.9 and Acute cystitis with hematuria N30.01 [place] [address] 43390- 9794 Apr, Major depressive disorder in partial remission F32.4 ; FRANCIS ( generalized anxiety disorder) F41.1 and Conversion disorder (or hysterical neurosis, conversion type) F44.9 [facility] [id number] [place] [address] 48845- 5395 Apr, [facility] [id number] [place] [address] 78569- 1652 Apr, Abnormal mammogram R92.8 [facility] [id number] [place] [address] 08366- 8000 Mar, [facility] [address] 63238- 6221 Mar, Gastroenteritis K52.9 and Seizure disorder G40.909 [facility] [id number] [place] [address] 26092- 9352 Dec, [facility] [id number] [place] [address] 74393 -0172 Dec, Other headache syndrome G44.89 [facility] [address] 44443- 5368 Dec, [facility] [id number] [place] [address] 40525- 5448 Dec, Thoracic disc herniation M51.24 [facility] [id number] [place] [address] 64262- 6575 Dec, [facility] [id number] [place] [address] 62735- 8502 Nov, Major depressive disorder in partial remission F32.4 and FRANCIS (generalized anxiety disorder) F41.1 [facility] [id number] [place] [address] 05181- 9778 Nov, [facility] [id number] [place] [address] 82150- 8151 Nov, Dorsalgia, unspecified M54.9 [facility] [address] [address]- 3806 Oct, [facility] [id number] [place] [address] 43782- 6836 September, [facility] [address] [address]- 2116 Aug, [facility] [id number] [place] [address] 79829- 9927 Aug, Major depressive disorder in partial remission F32.4 and FRANCIS (generalized anxiety disorder) F41.1 [facility] [address] [place] [address] 18568- 5338 Aug, [facility] [address] [address]- 8914 Jul, Abnormal mammogram R92.8 [facility] [id number] [address]- 1268 Jul, [facility] [address] [address]- 6267 Jul, [facility] [address] [place] [address] 42450- 4550 Jul, [facility] [address] [address]- 3129 Jul, [facility] [address] [address]- 4571 Jul, [facility] [id number] [address]- 9702 Jul, [facility] [address] [address]- 9842 Jun, Major depressive disorder in partial remission F32.4 and FRANCIS (generalized anxiety disorder) F41.1 [facility] [address] [address]- 7727 Jun, [facility] [address] [facility] [id number] [address]- 6147 May, [facility] [id number] [place] [address] 70509- 5147 Apr, [facility] [id number] [address]- 3590 Mar, Major depressive disorder, recurrent episode, moderate F33.1 ; PTSD (post-traumatic stress disorder) F43.10 and FRANCIS (generalized anxiety disorder) F41.1 [facility] [id number] [address]- 1638 Mar, [facility] [id number] [place] [address] 92876- 4799 Mar, [facility] [id number] [place] [address] 54401- 8842 Mar, [facility] [id number] [place] [address] 90549- 7951 Mar, [facility] [address] [address]- 2853 Jan, [facility] [id number] [place] [address] 47469- 3557 15 Jan, 2015 [facility] [address] [address]- 8188 15 Jan, 2015 [facility] [id number] [place] [address] 58472- 2818 14 Jan, 2015 Thoracic disc herniation 722.11 [facility] [address] [address]- 4302 Dec, [facility] [id number] [address]- 5847 Dec, [facility] [address] [address]- 4409 Dec, [facility] [id number] [address]- 7906 16 Nov, 2014 [facility] [id number] [address]- 6385 Nov, Generalized anxiety disorder 300.02 ; Posttraumatic stress disorder 309.81 and Major depressive disorder, recurrent episode, moderate 296.32 [facility] [address] [address]- 9966 Nov, [facility] [address] [facility] [id number] [address]- 1406 Nov, [facility] [id number] [address]- 8957 Oct, [facility] [id number] [address]- 9826 Oct, [facility] [address] [address]- 1606 Oct, [facility] [address] [address]- 7047 September, [facility] [address] [address]- 9410 September, [facility] [address] [address]- 3200 Aug, [facility] [id number] [address]- 6992 Aug, [facility] [id number] [address]- 9016 Jul, [facility] [id number] [address]- 8726 Jul, [facility] [id number] [address]- 9206 Jul, [facility] [id number] [address]- 9876 Jul, [facility] [place] [facility] [address] [id number] [place] [address]- 5563 16 Jul, 2014 [facility] [place] [facility] [address] [id number] [place] [address]- 4518 16 Jul, 2014 [facility] [place] [facility] [address] [id number] [place] [address]- 1596 Jul, 2014 [facility] [place] [facility] [address] [id number] [place] [address]- 5425 Jul, 2014 [facility] [place] [facility] [address] [id number] [place] [address]- 1787 Jul, [facility] [place] [facility] [address] [id number] [place] [address]- 6817 Jul, [facility] [place] [facility] [address] [id number] [place] [address]- 3945 Jun, [facility] [place] [facility] [address] [id number] [place] [address]- 0326 Jun, [facility] [place] [facility] [address] [id number] [place] [address]- 2554 Jun, [facility] [place] [facility] [address] [facility] [id number] [place] [address]- 1329 May, [facility] [place] [facility] [address] [id number] [place] [address]- 0843 Apr, [facility] [place] [facility] [address] [id number] [place] [address]- 5402 Apr, [facility] [place] [facility] [address] [id number] [place] [address]- 6123 Apr, [facility] [place] [facility] [address] [id number] [place] [address]- 1357 Apr, [facility] [place] [facility] [address] [id number] [place] 7777 Apr, [facility] [place] [facility] [address] [id number] [address]- 5914 Apr, [facility] [place] [facility] [address] [id number] [place] [address]- 8036 Apr, [facility] [place] [facility] [address] [id number] [place] [address]- 0467 Apr, [facility] [place] [facility] [address] [id number] [place] [address]- 1676 Mar, [facility] [place] [facility] [address] [id number] [place] [address]- 6134 Mar, [facility] [place] [facility] [address] [id number] [place] [address]- 7985 Mar, [facility] [place] [facility] [address] [id number] [place] [address]- 0432 Mar, [facility] [place] [facility] [address] [id number] [place] [address]- 6315 Mar, [facility] [place] [facility] [address] [id number] [place] [address]- 8591 Mar, [facility] [place] [facility] [address] [id number] [place] [address]- 5887 Mar, [facility] [place] [facility] [address] [id number] [place] [address]- 2814 Mar, [facility] [place] [facility] [address] [id number] [address]- 5883 Mar, [facility] [place] [facility] [address] [id number] [address]- 0914 Mar, [facility] [place] [facility] [address] [id number] [place] [address]- 5238 17 Mar, 2014 [facility] [place] [facility] [address] [id number] [place] [address]- 4566 14 Mar, 2014 [facility] [place] [facility] [address] [id number] [place] [address]- 5456 14 Mar, 2014 [facility] [place] [facility] [address] [id number] [place] [address]- 9072 07 Mar, 2013 [facility] [place] [facility] [address] [id number] [place] [address]- 6884 07 Mar, 2013 [facility] [place] [facility] [address] [id number] [place] [address]- 8526 06 Mar, 2013 [facility] [place] [facility] [address] [id number] [place] [address]- 4105 06 Oct, 2013 [facility] [place] [facility] [address] [id number] [place] [address]- 4005 19 Sep, 2013 [facility] [place] [facility] [address] [id number] [place] [address]- 0004 19 Sep, 2013 [facility] [place] [facility] [address] [id number] [place] [address]- 4967 09 Sep, 2013 [facility] [place] [facility] [address] [id number] [place] [address]- 0645 09 Sep, 2013 [facility] [place] [facility] [address] [id number] [place] [address]- 2549 05 Sep, 2013 [facility] [place] [facility] [address] [id number] [place] [address]- 2540 05 Sep, 2013 [facility] [place] [facility] [address] [id number] [place] [address]- 8886 05 Sep, 2013 [facility] [place] [facility] [address] [id number] [place] [address]- 2543 05 Sep, 2013 [facility] [place] [facility] [address] [id number] [place] [address]- 2541 03 Sep, 2013 [facility] [place] [facility] [address] [id number] [place] [address]- 2387 02 Sep, 2013 [facility] [place] [facility] [address] [id number] [place] [address]- 2564 02 Sep, 2013 [facility] [place] [facility] [address] [id number] [place] [address]- 5367 Jan, [facility] [address] [id number] [place] [address]- 8656 Jan, [facility] [address] [id number] [place] [address]- 4377 Dec, [facility] [address] [id number] [place] [address]- 6315 Dec, [facility] [address] [id number] [place] [address]- 8074 Dec, [facility] [address] [id number] [place] [address]- 2401 Dec, [facility] [address] [id number] [place] [address]- 7990 Dec, [facility] [address] [id number] [place] [address]- 4962 Dec, [facility] [id number] Dec [facility] [id number] Dec [facility] [address] [id number] [place] [address]- 5505 Dec, [facility] [address] [id number] [place] [address]- 9521 Dec, [facility] [place] [facility] [address] [id number] [place] [address]- 0719 Dec, [facility] [place] [facility] [address] [id number] [place] [address]- 9681 Dec, [facility] [place] [facility] [address] [id number] [place] [address]- 3553 Nov, [facility] [place] [facility] [address] [id number] [place] [address]- 4653 Nov, [facility] [place] [facility] [address] [id number] [place] [address]- 8218 Nov, [facility] [place] [facility] [address] [id number] [place] [address]- 2973 Nov, [facility] [place] [facility] [address] [id number] [place] [address]- 7003 Nov, [facility] [place] [facility] [address] [id number] [place] [address]- 4832 Nov, [facility] [place] [facility] [address] [id number] [place] [address]- 1673 Nov, [facility] [place] [facility] [address] [id number] [place] [address]- 6933 Nov, [facility] [place] [facility] [address] [id number] [place] [address]- 4133 Nov, [facility] [place] [facility] [address] [id number] [place] [address]- 5567 Nov, [facility] [place] [facility] [address] [id number] [place] [address]- 5339 Nov, [facility] [place] [facility] [address] [id number] [place] [address]- 0635 Nov, [facility] [place] [facility] [address] [id number] [place] [address]- 7168 Nov, [facility] [place] [facility] [address] [id number] [place] [address]- 4610 Oct, [facility] [place] [facility] [address] [id number] [place] [address]- 0386 Oct, [facility] [place] [facility] [address] [id number] [place] [address]- 1620 Oct, [facility] [place] [facility] [address] [id number] [place] [address]- 7927 Oct, [facility] [place] [facility] [address] [id number] [place] [address]- 9260 Oct, [facility] [place] [facility] [address] [id number] [place] [address]- 8255 Oct, [facility] [place] [facility] [address] [id number] [place] [address]- 4664 Oct, [facility] [place] [facility] [address] [id number] [place] [address]- 7207 Oct, [facility] [place] [facility] [address] [id number] [place] [address]- 3275 Oct, [facility] [place] [facility] [address] [id number] [place] [address]- 4890 Oct, [facility] [place] [facility] [address] [id number] [place] [address]- 2157 Oct, [facility] [place] [facility] [address] [id number] [place] [address]- 7248 Oct, [facility] [place] [facility] [address] [id number] [place] [address]- 9988 September, [facility] [place] [facility] [address] [id number] [place] [address]- 1465 September, [facility] [place] [facility] [address] [id number] [place] [address]- 2541 September, [facility] [place] [facility] [address] [id number] [place] [address]- 3727 September, [facility] [place] [facility] [address] [id number] [place] [address]- 3692 Aug, [facility] [place] [facility] [address] [id number] [place] [address]- 5476 Aug, [facility] [place] [facility] [address] [id number] [place] [address]- 6685 Aug, [facility] [place] [facility] [address] [id number] [place] [address] Aug, [facility] [place] [facility] [address] [id number] [place] [address] Aug, [facility] [place] [facility] [address] [id number] [place] [address] 10 Aug, 2013 [facility] [place] [facility] [address] [id number] [place] [address] 10 Aug, 2013 [facility] [place] [facility] [address] [id number] [place] [address] 28 Jul, 2013 [facility] [place] [facility] [address] [id number] [place] [address] 28 Jul, 2013 [facility] [place] [facility] [address] [id number] [place] [address] Jul, [facility] [place] [facility] [address] [id number] [place] [address] Jul, [facility] [place] [facility] [address] [id number] [place] [address] Jul, [facility] [place] [facility] [address] [id number] [place] [address] 19 Jul, 2013 [facility] [place] [facility] [address] [id number] [place] [address] 18 Jul, 2013 [facility] [place] [facility] [address] [id number] [place] [address] 18 Jul, 2013 [facility] [place] [facility] [address] [id number] [place] [address] 74[address] 18 Jul, 2013 [facility] [place] [facility] [address] [id number] [place] [address] 18 Jul, 2013 [facility] [place] [facility] [address] [id number] [place] [address] 18 Jul, 2013 [facility] [place] [facility] [address] [id number] [place] [address] 18 Jul, 2013 [facility] [place] [facility] [address] [id number] [place] [address] 14 Jul, 2013 [facility] [place] [facility] [address] [id number] [place] [address]- [address] 14 Jul, 2013 [facility] [place] [facility] [address] [id number] [place] [address] Jul, [facility] [place] [facility] [address] [id number] [place] [address]99 11 Jul, 2013 [facility] [place] [facility] [address] [id number] [place] [address] Jul, [facility] [place] [facility] [address] [id number] [place] [address] Jul, [facility] [place] [facility] [address] [id number] [place] [address] Jun, [facility] [place] [facility] [address] [id number] [place] [address] Jun, [facility] [place] [facility] [address] [id number] [place] [address] 15 Jun, 2013 [facility] [place] [facility] [address] [id number] [place] [address] 15 Jun, 2013 [facility] [place] [facility] [address] [id number] [place] [address]- [address] 14 Jun, 2013 [facility] [place] [facility] [address] [id number] [place] [address] 14 Jun, 2013 [facility] [place] [facility] [address] [id number] [place] [address] 14 Jun, 2013 [facility] [place] [facility] [address] [id number] [place] [address] 14 Jun, 2013 [facility] [place] [facility] [address] [id number] [place] [address] 14 Jun, 2013 [facility] [place] [facility] [address] [id number] [place] [address]- [address]267 14 Jun, 2013 [facility] [place] [facility] [address] [id number] [place] [address] 27 May, 2013 [facility] [place] [facility] [address] [id number] [place] [address] 27 May, 2012 [facility] [address] [id number] [place] [address]- 6786 26 May, 2013 [facility] [place] [facility] [address] [id number] [place] [address] 2176 19 May, 2013 [facility] [address] [id number] [place] [address] 0186 19 May, 2013 [facility] [place] [facility] [address] [id number] [place] [address] 16 May, 2013 [facility] [place] [facility] [address] [id number] [place] [address] 16 May, 2013 [facility] [place] [facility] [address] [id number] [place] [address] 8742 16 May, 2013 [facility] [place] [facility] [address] [id number] [place] [address] 5197 16 May, 2013 [facility] [address] [id number] [place] [address] 9345 13 May, 2013 [facility] [place] [facility] [address] [id number] [place] [address]- 0904 13 May, [address] [facility] [place] [facility] [address] [id number] [place] [address] 2626 11 May, 2013 [facility] [place] [facility] [address] [id number] [place] [address]- 7665 20 Apr, 2013 [facility] [place] [facility] [address] [id number] [place] [address]- 0270 18 Apr, 2013 [facility] [place] [facility] [address] [id number] [place] [address]- 8724 18 Apr, 2013 [facility] [place] [facility] [address] [id number] [place] [address] 3796 13 Apr, 2013 [facility] [place] [facility] [address] [id number] [place] [address]- 5084 Apr, [facility] [place] [facility] [address] [id number] [place] [address]- 2117 08 Apr, 2013 [facility] [place] [facility] [address] [id number] [place] [address]- 1007 08 Apr, 2013 [facility] [place] [facility] [address] [id number] [place] [address]- 3877 Apr, [facility] [place] [facility] [address] [id number] [place] [address]- 8597 Apr, [facility] [place] [facility] [address] [id number] [place] [address]- 5154 Apr, [facility] [place] [facility] [address] [id number] [place] [address]- 1299 Apr, [facility] [place] [facility] [address] [id number] [place] [address]- 6269 Mar, [facility] [place] [facility] [address] [id number], [place] [address] 9[address] Mar, [facility] [place] [facility] [address] [id number] [place] [address]- 8513 Mar, [facility] [place] [facility] [address] [id number][place] [address]- 2438 Mar, [facility] [place] [facility] [address] [id number], [place] [address]- 0925 Mar, [facility] [place] [facility] [address] [id number], [place] [address]- 4940 Mar, [facility] [place] [facility] [address] [id number] [place] [address]- 9422 Mar, [facility] [place] [facility] [address] [id number], [place] [address]- 4706 Mar, [facility] [place] [facility] [address] [id number], [place] [address]- 0985 Mar, [facility] [place] [facility] [address] [id number] [place] [address]- 8271 15 Mar, 2013 [facility] [address] [id number] [place] [address]- 0559 15 Mar, 2013 [facility] [place] [facility] [address] [id number] [place] [address]- 5237 Mar, [facility] [place] [facility] [address] [id number] [place] [address]- 4274 30 Jan, 2013 [facility] [place] [facility] [address] [id number] [place] [address]- 0054 25 Jan, 2013 [facility] [place] [facility] [address] [id number] [place] [address]- 2777 20 Jan, 2013 [facility] [place] [facility] [address] [id number] [place] [address]- 4587 Jan, [facility] [place] [facility] [address] [id number] [place] [address]- 2151 Dec, [facility] [place] [facility] [address] [id number] [place] [address]- 0639 Dec, [facility] [place] [facility] [address] [id number] [place] [address]- 8552 Dec, [facility] [place] [facility] [address] [id number] [place] [address]- 3203 Dec, [facility] [place] [facility] [address] [id number] [place] [address]- 4568 Dec, [facility] [place] [facility] [address] [id number] [place] [address]- 2547 Dec, [facility] [place] [facility] [address] [id number] [place] [address]- 2960 Dec, [facility] [place] [facility] [address] [id number] [place] [address]- 4741 Dec, [facility] [place] [facility] [address] [id number] [place] [address]- 4048 Dec, [facility] [place] [facility] [address] [id number] [place] [address]- 6920 Nov, [facility] [place] [facility] [address] [id number] [place] [address]- 4591 Nov, [facility] [place] [facility] [address] [id number] [place] [address]- 3413 Nov, [facility] [place] [facility] [address] [id number] [place] [address]- 0137 Nov, [facility] [place] [facility] [address] [id number] [place] [address]- 7227 Nov, [facility] [place] [facility] [address] [id number] [place] [address]- 8456 Nov, [facility] [place] [facility] [address] [id number] [place] [address]- 4242 Nov, [facility] [place] [facility] [address] [id number] [place] [address]- 6720 Nov, [facility] [place] [facility] [address] [id number] [place] [address]- 6345 Oct, [facility] [place] [facility] [address] [id number] [place] [address]- 9430 Oct, [facility] [place] [facility] [address] [id number] [place] [address]- 9265 Oct, [facility] [place] [facility] [address] [id number] [place] [address]- 0278 Oct, [facility] [place] [facility] [address] [id number] [place] [address]- 0343 Oct, [facility] [place] [facility] [address] [id number] [place] [address]- 9933 Oct, [facility] [place] [facility] [address] [id number] [place] [address]- 7749 Oct, [facility] [place] [facility] [address] [id number] [place] [address]- 1590 20 Oct, 2012 [facility] [address] [id number] [place] [address]- 9204 19 Oct, 2012 [facility] [place] [facility] [address] [id number] [place] [address]- 4905 18 Oct, 2012 [facility] [place] [facility] [address] [id number] [place] [address]- 3829 17 Oct, 2012 [facility] [place] [facility] [address] [id number] [place] [address]- 0668 14 Oct, 2012 [facility] [place] [facility] [address] [id number] [place] [address]- 7597 07 Oct, 2012 [facility] [place] [facility] [address] [id number] [place] [address]- 4414 30 Sep, 2012 [facility] [place] [facility] [address] [id number] [place] [address]- 4307 September, [facility] [place] [facility] [address] [id number] [place] [address]- 4136 September, [facility] [place] [facility] [address] [id number] [place] [address]- 9985 25 Aug, 2012 [facility] [place] [facility] [address] [id number] [place] [address]- 7153 24 Aug, 2012 [facility] [place] [facility] [address] [id number] [place] [address]- 6806 18 Aug, 2012 [facility] [place] [facility] [address] [id number] [place] [address]- 1778 18 Aug, 2012 [facility] [place] [facility] [address] [id number] [place] [address]- 4472 18 Aug, 2012 [facility] [place] [facility] [address] [id number] [place] [address]- 1997 08 Aug, 2012 [facility] [place] [facility] [address] [id number] [place] [address]- 9953 05 Aug, 2012 [facility] [place] [facility] [address] [id number] [place] [address]- 5489 Jul, [facility] [address] [id number] [place] [address]- 4397 Jul, [facility] [place] [facility] [address] [id number] [place] [address]- 4242 Jul, [facility] [address] [id number] [place] [address]- 9140 Jul, [facility] [place] [facility] [address] [id number] [place] [address]- 1326 Jul, [facility] [place] [facility] [address] [id number] [place] [address]- 9486 Jul, [facility] [place] [facility] [address] [id number] [place] [address]- 8931 Jul, [facility] [place] [facility] [address] [id number] [place] [address]- 8111 Jul, [facility] [address] [id number] [place] [address]- 0525 Jul, [facility] [place] [facility] [address] [id number] [place] [address]- 8389 Jul, [facility] [place] [facility] [address] [facility] [id number] [place] [address]- 6809 Jul, [facility] [place] [facility] [address] [id number] [place] [address]- 7559 Jul, [facility] [place] [facility] [address] [id number] [place] [address]- 6849 Jul, [facility] [place] [facility] [address] [id number] [place] [address]- 3225 Jun, [facility] [place] [facility] [address] [id number] [place] [address]- 5183 Jun, [facility] [place] [facility] [address] [id number] [place] [address]- 7076 19 Jun, 2012 [facility] [address] [id number] [place] [address]- 5599 17 Jun, 2012 [facility] [place] [facility] [address] [id number] [place] [address]- 1176 15 Jun, 2012 [facility] [address] [id number] [place] [address]- 2206 14 Jun, 2012 [facility] [place] [facility] [address] [id number] [place] [address]- 4336 08 Jun, 2012 [facility] [address] [id number] [place] [address]- 0204 28 May, 2012 [facility] [address] [id number] [place] [address]- 2013 28 May, 2012 [facility] [address] [id number] [place] [address]- 8105 May, [facility] [place] [facility] [address] [id number] [place] [address]- 9438 May, [facility] [address] [id number] [place] [address]- 4983 May, [facility] [place] [facility] [address] [id number] [place] [address]- 8988 May, [facility] [place] [facility] [address] [id number] [place] [address]- 5764 May, [facility] [place] [facility] [address] [id number] [place] [address]- 0460 May, [facility] [place] [facility] [address] [id number] [place] [address]- 7446 May, [facility] [place] [facility] [address] [id number] [place] [address]- 0704 May, [facility] [place] [facility] [address] [id number] [place] [address]- 9825 30 Apr, 2012 [facility] [place] [facility] [address] [id number] [place] [address]- 4962 Apr, [facility] [place] [facility] [address] [id number] [place] [address]- 4682 Apr, [facility] [place] [facility] [address] [id number] [place] [address]- 3428 Apr, [facility] [place] [facility] [address] [id number] [place] [address]- 2762 Apr, [facility] [place] [facility] [address] [id number] [place] [address]- 3810 Apr, [facility] [place] [facility] [id number] [place] [address], [place] [address]- 2017 Apr, [facility] [place] [facility] [address] [facility] [id number] [place] [address]- 5273 Apr, [facility] [place] [facility] [address] [facility] [id number] [place] [address]- 8259 Apr, [facility] [place] [facility] [address] [facility] [id number] [place] [address]- 7939 Apr, [facility] [place] [facility] [address] [facility] [id number] [place] [address]- 8025 Apr, [facility] [place] [facility] [address] [facility] [id number] [place] [address]- 1653 Apr, [facility] [place] [facility] [address] [facility] [id number] [place] [address]- 0002 Mar, [facility] [place] [facility] [address] [id number] [place] [address]- 4938 Mar, [facility] [place] [facility] [address] [facility] [id number] [place] [address]- 1081 Mar, [facility] [place] [facility] [address] [facility] [id number] [place] [address]- 1755 Mar, [facility] [place] [facility] [address] [facility] [id number] [place] [address]- 4522 Mar, [facility] [place] [facility] [address] [id number] [place] [address]- 0295 Mar, [facility] [place] [facility] [address] [id number] [place] [address]- 9379 Mar, [facility] [place] [facility] [address] [id number] [place] [address]- 5321 Mar, [facility] [place] [facility] [address] [id number] [place] [address]- 4298 Mar, [facility] [place] [facility] [address] [id number] [place] [address]- 3567 Mar, [facility] [place] [facility] [address] [id number] [place] [address]- 3967 Mar, [facility] [place] [facility] [address] [id number] [place] [address]- 6699 Mar, [facility] [place] [facility] [address] [id number], [place] [address]- 7348 Mar, [facility] [place] [facility] [address] [id number] [place] [address]- 5742 Mar, [facility] [place] [facility] [address] [id number], [place] [address]- 6757 Mar, [facility] [place] [facility] [address] [id number], [place] [address]- 0925 Mar, [facility] [place] [facility] [address] [id number], [place] [address]- 7085 25 Jan, 2012 [facility] [place] [facility] [address] [id number], [place] [address]- 3474 24 Jan, 2012 [facility] [place] [facility] [address] [id number], [place] [address]- 8049 22 Jan, 2012 [facility] [place] [facility] [address] [id number], [place] [address]- 2031 22 Jan, 2012 [facility] [place] [facility] [address] [id number], [place] [address]- 4436 21 Jan, 2012 [facility] [place] [facility] [address] [id number] [place] [address]- 1939 18 Jan, 2012 [facility] [place] [facility] [address] [id number] [place] [address]- 2873 14 Jan, 2012 [facility] [place] [facility] [address] [id number] [place] [address]- 8760 07 Jan, 2012 [facility] [place] [facility] [address] [id number] [place] [address]- 1400 15 Dec, 2011 [facility] [place] [facility] [address] [id number] [place] [address]- 3325 10 Dec, 2011 [facility] [place] [facility] [address] [id number] [place] [address]- 9841 Dec, [facility] [place] [facility] [address] [id number] [place] [address]- 9617 Dec, [facility] [place] [facility] [address] [id number] [place] [address]- 0239 Dec, [facility] [place] [facility] [address] [id number] [place] [address]- 0064 Dec, [facility] [place] [facility] [address] [id number] [place] [address]- 3412 Dec, [facility] [place] [facility] [address] [id number] [place] [address]- 9280 Nov, [facility] [place] [facility] [address] [id number] [place] [address]- 7884 Oct, [facility] [place] [facility] [address] [id number] [place] [address]- 5410 Aug, [facility] [place] [facility] [address] [id number] [place] [address]- 1729 Jul, [facility] [place] [facility] [address] [id number] [place] [address]- 1806 Jul, [facility] [place] [facility] [address] [id number] [place] [address]- 5029 16 Jul, 2011 [facility] [place] [facility] [address] [id number] [place] [address]- 5232 14 Jul, 2011 [facility] [place] [facility] [address] [id number] [place] [address]- 7696 07 Jul, 2011 [facility] [place] [facility] [address] [id number] [place] [address]- 7734 02 Jul, 2011 [facility] [place] [facility] [address] [id number] [place] [address]- 7622 21 Jul, 2011 [facility] [place] [facility] [address] [id number] [place] [address]- 4587 15 Jul, 2011 [facility] [place] [facility] [address] [id number] [place] [address]- 2858 13 Jul, 2011 [facility] [place] [facility] [address] [id number] [place] [address]- 6436 03 Jul, 2011 [facility] [place] [facility] [address] [id number] [place] [address]- 5879 Jul, [facility] [place] [facility] [address] [id number] [place] [address]- 3375 24 Jun, [address] [facility] [place] [facility] [address] [id number] [place] [address]- 1171 24 Jun, 2011 [facility] [place] [facility] [address] [id number] [place] [address]- 4803 Jun, [facility] [place] [facility] [address] [id number] [place] [address]- 6155 Jun, [facility] [place] [facility] [address] [id number] [place] [address]- 1756 Jun[facility] [place] [facility] [address] [id number] [place] [address]- 9651 05 Jun, 2011 [facility] [place] [facility] [address] [id number] [place] [address]- 9311 Jun, [facility] [place] [facility] [address] [id number] [place] [address]- 7585 May, [facility] [place] [facility] [address] [id number] [place] [address]- 2476 May, [facility] [place] [facility] [address] [id number] [place] 4958 May, [facility] [place] [facility] [address] [id number] [place] [address]- 2677 May, [facility] [place] [facility] [address] [id number] [place] [address]- 0115 May, [facility] [place] [facility] [address] [id number] [place] [address]- 9944 May, [facility] [place] [facility] [address] [id number] [place] [address]- 4024 May, [facility] [place] [facility] [address] [id number] [place] [address]- 8302 May, [facility] [place] [facility] [address] [id number] [place] [address]- 7289 May, [facility] [place] [facility] [address] [id number] [place] [address]- 0538 May, [facility] [place] [facility] [address] [id number] [place] [address]- 6347 Apr, [facility] [place] [facility] [address] [id number] [place] [address]- 7531 15 Apr, 2011 [facility] [place] [facility] [address] [id number] [place] [address]- 3025 Apr, [facility] [place] [facility] [address] [id number] [place] 5967 Apr, [facility] [place] [facility] [address] [id number] [place] [address] Mar, [facility] [place] [facility] [address] [facility] [id number] [place] [id number] Mar, [facility] [address] [facility] [id number] [place] [address] Mar, [facility] [address] [facility] [id number] [place] [id number] Mar, IMMUNIZATIONS No Known Immunizations SOCIAL HISTORY Never Assessed REASON FOR VISIT metoprolol refill PLAN OF CARE VITAL SIGNS MEDICATIONS Medication Instructions Dosage Frequency Start Date End Date Duration Status Metoprolol Tartrate 50MG Orally Twice a day 06/02 tab 12h 30 Active RESULTS No Results PROCEDURES No Known [...]
--- OUTSIDE RECORDS SUMMARY | 2017-10-27 09:53 | XMS REPORT ---
Author Author SABIHA MAST [facility] Address [address] [place] [address] Care Team Providers Care Auxiliary Powerplant Operator Name Role Phone SABIHA MAST Unavailable PROBLEMS Type Condition ICD9-CM Code [id number] Code Onset Dates Condition Status SNOMED Code Problem Major depressive disorder in partial remission F32.4 Active 74529593 Problem FRANCIS (generalized anxiety disorder) F41.1 Active 51861505 Problem Constipation, unspecified constipation type K59.00 Active 37788681 Problem Slow transit constipation K59.01 Active 53428455 Problem Conversion disorder (or hysterical neurosis, conversion type) F44.9 Active 73249510 Problem Thoracic disc herniation M51.24 Active 663291719 Problem Paroxysmal tachycardia I47.9 Active 91141028 Problem Seizure disorder G40.909 Active 668141457 ALLERGIES Substance Reaction Event Type Date Status Macrobid hives Drug Allergy Jul, Active Levaquin hives Drug Allergy Jul, Active Tramadol Unknown Drug Allergy Jul, Active Ambien 10 Mg Tablet Sleep Walking and Sleep Driving. Eating while asleep. lg Non Drug Allergy Jul, Active SOCIAL HISTORY Never Assessed PLAN OF CARE Activity Details Follow Up 3 Weeks Reason: VITAL SIGNS Height 62 in 2016-08-08 Weight 156.4 lbs 2016-08-08 Temperature 97.7 degrees Fahrenheit 2016-08-08 Heart Rate 91 bpm 2016-08-08 Respiratory Rate 22 2016-08-08 Oximetry 97 % 2016-08-08 BMI 28.60 kg/m2 2016-08-08 Blood pressure systolic 136 mmHg 2016-08-08 Blood pressure diastolic 84 mmHg 2016-08-08 MEDICATIONS Medication Instructions Dosage Frequency Start Date End Date Duration Status Hydrocodone-Acetaminophen 10-325 MG Orally every 6 hrs 1 tablet as needed 6h Active Omeprazole 20 mg take 1 capsule (20 mg) by oral route once daily before a meal Apr, Active Metoprolol Tartrate 50 mg Orally Twice a day 1/2 tab 12h 10 Jul, 2017 30 day(s) Active Quetiapine Fumarate 200 MG TAKE 1 TABLET ONE TIME DAILY AT BEDTIME FOR SLEEP Active ProAir HFA 90 mcg/actuation 2 puffs by Inhalation route 4 times per dayPRN Apr, Active Gabapentin 800MG Orally Three times a day 1.5 tablet 8h 90 days Active Alprazolam 1MG Orally 2 times a day as needed for anxiety 1 tablet 30 days Active Trazodone HCl 150 MG TAKE 1 TABLET ONE TIME AT BEDTIME FOR SLEEP Active RESULTS No Results PROCEDURES Procedure Date Ordered Result Body Site MEASURE BLOOD OXYGEN LEVEL August 08, 2016 IMMUNIZATIONS No Known Immunizations MEDICAL (GENERAL) [...]
[2017-10-27] MEDS ORDERED: MIDAZOLAM 2 MG/2 ML (VERSED) VIAL ONE (10:51)
[2017-10-27] MEDS ORDERED: PROPOFOL INJECTION 50 ML IV ONE ×2 (10:52→11:03)
--- NOTE | 2017-10-27 11:29 | Progress Note-Post Operative ---
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
--- NOTE | 2017-10-27 11:30 | Discharge Inst-Simple/Standard ---
Discharge Inst-Standard Patient Instructions/Follow Up Plan of Care/Instructions/FU: 2 weeks Andrews Activity as Tolerated: Yes Discharge Diet: Regular Diet NETTIE HAHN DO October 27, 2017 11:30
[2017-10-27 11:45] VITALS: BP 133/86
--- NOTE | 2017-10-27 11:50 | Anesthesia-General Post-Op ---
MAC Patient Condition Mental Status/LOC: Same as Preop Cardiovascular: Satisfactory Nausea/Vomiting: Absent Respiratory: Satisfactory Pain: Controlled Complications: Absent Post Op Complications Complications None Follow Up Care/Instructions Patient Instructions None needed. Anesthesiology Discharge Order Discharge Order Patient is doing well, no complaints, stable vital signs, no apparent adverse anesthesia problems. No complications reported per nursing. NI ORTIZ CRNA October 27, 2017 11:50
[2017-10-27 12:30] VITALS: BP 148/96
[2017-10-27 12:36] VITALS: BP 148/96
--- NOTE | 2017-10-27 20:29 | OPERATIVE REPORT ---
DATE OF SERVICE: 10/27/2017 PREOPERATIVE DIAGNOSIS: Chronic diarrhea, bilateral lower quadrant abdominal pain. POSTOPERATIVE DIAGNOSIS: Rectal polyp. PROCEDURE: Colonoscopy with hot biopsy polypectomy and random cold biopsies. SURGEON: Nettie Sparrow DO ANESTHESIA: Per FAST FOOD ATTENDANT. ESTIMATED BLOOD LOSS: None. COMPLICATIONS: None. INDICATIONS: The patient is a 47-year-old female who has had chronic diarrhea. She has had bilateral lower quadrant abdominal pain as well. She was recommended to have colonoscopy. She understands risks and benefits of procedure and wished to proceed with procedure. Consent was signed in the chart. DESCRIPTION OF PROCEDURE: The patient was taken to the endoscopy suite, placed in the left lateral recumbent position. Timeout was performed. Digital rectal exam was performed. There were no palpable polyps, masses or ulcerations. Scope was inserted in the rectum, advanced all the way to the cecum with minimal difficulty. Prep was adequate. Scope was then slowly retracted back. There were no polyps, masses or ulcerations within the cecum. The terminal ileum was intubated to the ileocecal valve, which had normal appearance. Scope was slowly retracted back into the colon which then was continued to be retracted back. There were no polyps, masses or ulcerations within the ascending, transverse, descending and sigmoid colon. Once in the rectum, a small rectal polyp was present, which hot biopsy polypectomy was performed. Scope was continued to be slowly retracted back through the colon. Random cold biopsies were obtained. Scope was retroflexed noting no other pathology. Scope was returned to its normal position, slowly withdrawn until completely removed. The patient tolerated procedure well without any complications. She was taken to the recovery room in stable condition. RECOMMENDATIONS: The patient will follow up in the office in 2 weeks to discuss pathology results. She will need a repeat colonoscopy in 5 years. If she has any problems prior to that, she should be reevaluated at that time. Job ID: [id number] DocumentID: [id number] Dictated Date: 10/27/2017 11:32:53 Cloth Boil Off Machine Operator Date: 10/27/2017 16:05:45 Dictated By: NETTIE SPARROW DO
== END 2017-10-27 12:37 | disposition home or self-care (01) ==
LOC: ENDO 09:22
PROVIDERS: ATTEND Surgery
DX: D12.8 Benign neoplasm of rectum (principal); I10 Essential (primary) hypertension; E78.5 Hyperlipidemia, unspecified; J45.909 Unspecified asthma, uncomplicated; G47.33 Obstructive sleep apnea (adult) (pediatric); G40.909 Epilepsy, unspecified, not intractable, without status epilepticus; F32.9 Major depressive disorder, single episode, unspecified; M79.7 Fibromyalgia; K44.9 Diaphragmatic hernia without obstruction or gangrene; K21.9 Gastro-esophageal reflux disease without esophagitis; Z85.44 Personal history of malignant neoplasm of other female genital organs; Z79.899 Other long term (current) drug therapy
CPT/HCPCS: 88305

== ENCOUNTER 2017-12-22 17:39 | Emergency (ER) | payer MEDICARE, OTHER ==
[~2017-12-22] VITALS: Ht 154.9 cm; Wt 73.0 kg
[2017-12-22 18:43] LABS: BILIRUBIN,URINE NEGATIVE (NEGATIVE); CLARITY,URINE VERY CLOUDY; COLOR,URINE YELLOW; GLUCOSE, URINE (UA) NEGATIVE (NEGATIVE); KETONES,URINE NEGATIVE (NEGATIVE); LEUKOCYTE ESTERASE ,URINE 2+ (NEGATIVE); NITRITE,URINE NEGATIVE (NEGATIVE); PH,URINE 5 (5-9); PROTEIN,URINE 3+ (NEGATIVE); UROBILINOGEN,URINE NORMAL (NORMAL)
[2017-12-22 18:45] LABS: BASOPHILS % (AUTO) 0 % (0-10); EOSINOPHILS # (AUTO) 0.2 10^3/uL (0.0-0.3); EOSINOPHILS % (AUTO) 3 % (0-10); HEMATOCRIT 39 % (35-52); HEMOGLOBIN 13.6 G/DL (11.5-16.0); LYMPHOCYTES % (AUTO) 33 % (12-44); MEAN CORPUSCULAR HEMOGLOBIN 30 PG (25-34); MEAN CORPUSCULAR HGB CONC 35 G/DL (32-36); MEAN CORPUSCULAR VOLUME 84 FL (80-99); MEAN PLATELET VOLUME 11.2 FL (7.4-10.4); MONOCYTES # (AUTO) 0.4 X 10^3 (0.0-1.0); MONOCYTES % (AUTO) 7 % (0-12); NEUTROPHILS # (AUTO) 3.4 X 10^3 (1.8-7.8); NEUTROPHILS % (AUTO) 57 % (42-75); PLATELET COUNT 172 10^3/uL (130-400); RED BLOOD COUNT 4.61 10^6/uL (4.35-5.85); RED CELL DISTRIBUTION WIDTH 12.3 % (10.0-14.5); WHITE BLOOD COUNT 6.1 10^3/uL (4.3-11.0)
[2017-12-22] MEDS ORDERED: fentaNYL INJECTION 100 MCG/2 ML AMP IVP ONE (18:45)
[2017-12-22 18:51] LABS: RBC,URINE TNTC /HPF
[2017-12-22 18:58] LABS: ALANINE AMINOTRANSFERASE 15 U/L (0-55); ALBUMIN 4.4 GM/DL (3.2-4.5); ALKALINE PHOSPHATASE 56 U/L (40-136); BILIRUBIN,TOTAL 0.4 MG/DL (0.1-1.0); BUN/CREATININE RATIO 16; CALCIUM 9.6 MG/DL (8.5-10.1); CARBON DIOXIDE 26 MMOL/L (21-32); CHLORIDE 106 MMOL/L (98-107); CREATININE SERUM 0.91 MG/DL (0.60-1.30); GFR ESTIMATED > 60; GLUCOSE 100 MG/DL (70-105); LIPASE 24 U/L (8-78); POTASSIUM 4.2 MMOL/L (3.6-5.0); SODIUM 139 MMOL/L (135-145); TOTAL PROTEIN 7.8 GM/DL (6.4-8.2)
[2017-12-22] MEDS ORDERED: NS IV 1000 ML 1,000 ML IV ONE (19:10)
[2017-12-22] MEDS ORDERED: PROMETHAZINE INJ 25 MG/ML (PHENERGAN) AMP ONE (19:25)
--- NOTE | 2017-12-22 19:37 | Diagnostic Imaging Report ---
PROCEDURE: CT urinary tract, rule out kidney stone. TECHNIQUE: Multiple contiguous axial images were obtained through the abdomen and pelvis without the use of intravenous contrast. INDICATION: Right flank pain. COMPARISON: 06/07/16 FINDINGS: There is subsegmental atelectasis in the left base. The right lung base is clear. The gallbladder is surgically absent. There is mild right-sided hydronephrosis. There is an obstructive stone measuring 10 mm in the right renal pelvis. Additional nonobstructive stones are seen bilaterally. Both ureters and urinary bladder are grossly normal. The remainder of the solid organs of bowel are grossly unremarkable. There is no free air or free fluid. Distal ureters and urinary bladder are normal. Osseous structures age-appropriate. IMPRESSION: 1. Mild right-sided hydronephrosis secondary to an obstructive 10 mm stone in the right renal pelvis. 2. Additional nonobstructive bilateral renal calculi. 3. Subsegmental atelectasis in left lung base. Dictated by: Dictated on workstation # [id number]
[2017-12-22] MEDS ORDERED: cefTRIAXone INJECTION 1,000 MG in NS (IVPB) 50 ML IV ONE (20:15)
[2017-12-22] MEDS ORDERED: METOCLOPRAMIDE INJ 10 MG/2 ML (REGLAN) IVP ONE (20:15)
[2017-12-22] MEDS ORDERED: morphine INJ 10 MG/ML 1ML (SYR OR VIAL) IVP ONE (20:15)
[2017-12-22] MEDS ORDERED: CEPH-507 PO (20:39)
[2017-12-22] MEDS ORDERED: OXYC-197 PO (20:39)
[2017-12-22] MEDS ORDERED: PROM25TA14 PO (20:39)
--- NOTE | 2017-12-22 20:39 | ED Abdominal Pain ---
General Chief Complaint: -Female Stated Complaint: LOWER BACK PAIN;ABD PAIN Nursing Triage Note: PT AMBULATED TO RM 7 W/O DIFFICULTIES. PT C/O R FLANK PAIN THAT RADIATES TO THE SUPRAPUBIC AREA. PT DENIES FREQUENCY, URGENCY OR PAIN WITH URINATION. PT STATES SHE DOES HAVE A HX OF KIDNEY STONES AND IBS. Sepsis Screen: No Definite Risk Source of Information: Patient Exam Limitations: No Limitations History of Present Illness Date Seen by Provider: Dec 22, 2017 Time Seen by Provider: 18:37 Initial Comments This 47-year-old woman presents to the emergency room with complaints of right flank pain. She has not felt well all week with intermittent pain but today the pain has become more severe. He does hurt to move. She has nausea without vomiting. She has not eaten today. She denies any change with her bowel habits but she does have chronic bowel problems with IBS. She notes urine has been darker. Pain feels similar to prior renal stones. She has had some shortness of breath with this but denies any cough or fever. She is surgically absent her gallbladder and appendix. Allergies and Home Medications Allergies Coded Allergies: Sulfa (Sulfonamide Antibiotics) (Unverified Allergy, Unknown, 09/25/13) hydrocodone (Verified Allergy, Unknown, itching, 10/26/14) ketorolac tromethamine (Verified Allergy, Unknown, 05/04/11) levofloxacin (Unverified Allergy, Unknown, 09/25/13) GIVES HER THRUSH nitrofurantoin (Unverified Allergy, Unknown, 12/22/17) ondansetron (Verified Allergy, Unknown, 10/13/15) tramadol (Unverified Allergy, Unknown, 06/11/16) Home Medications Alprazolam 1 Mg Tablet, 1 MG PO BID, (Reported) Amlodipine Besylate 2.5 Mg Tablet, 2.5 MG PO DAILY, (Reported) Atorvastatin Calcium 10 Mg Tablet, 10 MG PO HS, (Reported) Cephalexin 500 Mg Capsule, 500 MG PO QID Prescribed by: ANGEL DOBSON on 12/22/172038 Gabapentin 600 Mg Tablet, 1,200 MG PO BID, (Reported) TAKE 2 (600MG) TABS Metoprolol Tartrate 50 Mg Tablet, 50 MG PO HS, (Reported) Oxycodone HCl/Acetaminophen 1 Each Tablet, 1-2 EACH PO Q4H PRN for PAIN- MODERATE TO SEVERE Prescribed by: ANGEL DOBSON on 12/22/172038 Promethazine HCl 25 Mg Tablet, 25 MG PO Q6H PRN for NAUSEA/VOMITING Prescribed by: ANGEL DOBSON on 12/22/172038 Quetiapine Fumarate 300 Mg Tablet, 300 MG PO HS, (Reported) Trazodone HCl 300 Mg Tablet, 300 MG PO HS, (Reported) Patient Home Medication List Home Medication List Reviewed: Yes Review of Systems Constitutional: no symptoms reported EENTM: No Symptoms Reported Respiratory: See HPI Cardiovascular: No Symptoms Reported Gastrointestinal: See HPI Genitourinary: See HPI Musculoskeletal: no symptoms reported Skin: no symptoms reported Psychiatric/Neurological: No Symptoms Reported Endocrine: No Symptoms Reported Hematologic/Lymphatic: No Symptoms Reported Past Akgimgw-Iwmafd-Fhlcsj Hx Past Med/Social Hx: Reviewed and Corrections made Patient Social History Alcohol Use: Denies Use Recreational Drug Use: No 2nd Hand Smoke Exposure: No Recent Foreign Travel: No Contact w/Someone Who Travel: No Recent Infectious Disease Expo: No Recent Hopitalizations: No Physical Abuse: No Sexual Abuse: No Immunizations Up To Date Date of Pneumonia Vaccine: Mar 01, 2013 Date of Influenza Vaccine: Mar 01, 2015 Seasonal Allergies Seasonal Allergies: No Past Medical History Surgeries: Yes (breast reduction, several cysto's with UD, lap santa) Appendectomy, Bladder Surgery, Gallbladder, Hysterectomy, Tubal Ligation Respiratory: Yes Asthma, Sleep Apnea Currently Using CPAP: Yes Currently Using BIPAP: No Cardiac: Yes Hypertension, Irregular Heartbeat Neurological: Yes Headaches /Migraines, Seizure Disorder : No Reproductive Disorders: No 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, 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 Sexually Transmitted Disease: No HIV/AIDS: No Genitourinary: Yes Bladder Infection, Kidney Stones, Renal Failure, UTI-Chronic Gastrointestinal: Yes Gastroesophageal Reflux, Pancreatitis, Chronic Diarrhea, Hiatal Hernia Musculoskeletal: Yes Fibromyalgia, Chronic Back Pain Endocrine: No HEENT: No Cancer: Yes Vaginal What Type of Treatment Did You: Surgical Intervention Psychosocial: Yes Anxiety, Depression Nursing Suicide Risk Score: 0 Integumentary: No Blood Disorders: No Adverse Reaction/Blood Tranf: No Family Medical History Reviewed Nursing Family Hx Dementia 19 FATHER Family history: Cardiovascular disease 19 FATHER Family history: Diabetes mellitus G8 SISTER Family history: Hypertension 19 FATHER 19 MOTHER History of - respiratory disease 19 MOTHER Seizure disorder G8 SISTER No Family History of: Abdominal aortic aneurysm Orange's disease Alcoholism Aphasia Cancer Cancer of colon Cataract Chest pain Congenital heart disease Congestive heart failure Cystic fibrosis Family history: Osteoporosis Family history: Thyroid disorder Headache Hearing loss Heart disease Hereditary disease History of - anemia History of - disorder History of drug abuse Human immunodeficiency virus (HIV) seropositivity Hypercholesterolemia Infertile Kidney disease Malignant neoplasm of lung Myocardial infarction Parkinson's disease Prostate cancer Psychotic disorder Stroke Tuberculosis Visual impairment No Pertinent Family Hx, Heart Disease Physical Exam Vital Signs Vital Signs - First Documented 12/22/17 12/22/17 17:43 19:00 Temp 98.3 Pulse 74 Resp 15 B/P (MAP) 143/94 (110) Pulse Ox 94 O2 Delivery Room Air O2 Flow Rate 2.00 Capillary Refill : Less Than 3 Seconds Height/Weight/BMI Height: 5'1.00" Weight: 161lbs. 0.0oz. 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, no motor/sensory deficits, alert, normal mood/affect, oriented x 3 Skin: normal color, warm/dry Progress/Results/Core Measures Results/Orders Lab Results Laboratory Tests Test 12/22/17 18:05 12/22/17 18:19 Range/Units Urine Color YELLOW Urine Clarity VERY CLOUDY H Urine pH 5 5-9 Urine Specific [place] 1.015 L 1.016-1.022 Urine Protein 3+ H NEGATIVE Urine Glucose (UA) NEGATIVE NEGATIVE Urine Ketones NEGATIVE NEGATIVE Urine Nitrite NEGATIVE NEGATIVE Urine Bilirubin NEGATIVE NEGATIVE Urine Urobilinogen NORMAL NORMAL MG/DL Urine Leukocyte Esterase 2+ H NEGATIVE Urine RBC (Auto) 5+ H NEGATIVE Urine RBC TNTC H /HPF Urine WBC 10-25 H /HPF Urine Squamous Epithelial Cells 5-10 /HPF Urine Crystals NONE /LPF Urine Bacteria NONE /HPF Urine Casts NONE /LPF Urine Mucus NEGATIVE /LPF Urine Culture Indicated YES White Blood Count 6.1 4.3-11.0 10^3/uL Red Blood Count 4.61 4.35-5.85 10^6/uL Hemoglobin 13.6 11.5-16.0 G/DL Hematocrit 39 35-52 % Mean Corpuscular Volume 84 80-99 FL Mean Corpuscular Hemoglobin 30 25-34 PG Mean Corpuscular Hemoglobin Concent 35 32-36 G/DL Red Cell Distribution Width 12.3 10.0-14.5 % Platelet Count 172 130-400 10^3/uL Mean Platelet Volume 11.2 H 7.4-10.4 FL Neutrophils (%) (Auto) 57 42-75 % Lymphocytes (%) (Auto) 33 12-44 % Monocytes (%) (Auto) 7 0-12 % Eosinophils (%) (Auto) 3 0-10 % Basophils (%) (Auto) 0 0-10 % Neutrophils # (Auto) 3.4 1.8-7.8 X 10^3 Lymphocytes # (Auto) 2.0 1.0-4.0 X 10^3 Monocytes # (Auto) 0.4 0.0-1.0 X 10^3 Eosinophils # (Auto) 0.2 0.0-0.3 10^3/uL Basophils # (Auto) 0.0 0.0-0.1 10^3/uL Sodium Level 139 135-145 MMOL/L Potassium Level 4.2 3.6-5.0 MMOL/L Chloride Level 106 98-107 MMOL/L Carbon Dioxide Level 26 21-32 MMOL/L Anion Gap 7 5-14 MMOL/L Blood Urea Nitrogen 15 7-18 MG/DL Creatinine 0.91 0.60-1.30 MG/DL Estimat Glomerular Filtration Rate > 60 BUN/Creatinine Ratio 16 Glucose Level 100 70-105 MG/DL Calcium Level 9.6 8.5-10.1 MG/DL Total Bilirubin 0.4 0.1-1.0 MG/DL Aspartate Amino Transf (AST/SGOT) 14 5-34 U/L Alanine Aminotransferase (ALT/SGPT) 15 0-55 U/L Alkaline Phosphatase 56 40-136 U/L Total Protein 7.8 6.4-8.2 GM/DL Albumin 4.4 3.2-4.5 GM/DL Lipase 24 8-78 U/L Mary MATA,ANGEL T MD Cbc With Automated Diff (12/22/17 18:37) Comprehensive Metabolic Panel (12/22/17 18:37) Ua Culture If Indicated (12/22/17 18:37) Saline Lock/Iv-Start (12/22/17 18:37) Lipase (12/22/17 18:37) Fentanyl Injection (Sublimaze Injection (12/22/17 18:45) Urine Culture (12/22/17 18:05) Saline Lock/Iv-Start (12/22/17 19:10) Ns Iv 1000 Ml (Sodium Chloride 0.9%) (12/22/17 19:10) Ct Abd/Pelvis Wo(Kidney Stone) (12/22/17 19:10) Promethazine Injection (Phenergan Injec (12/22/17 19:25) Metoclopramide Injection (Reglan Injecti (12/22/17 20:15) Morphine Injection (Morphine Injection (12/22/17 20:15) Ceftriaxone Injection (Rocephin Injectio (12/22/17 20:15) Abdomen/Kub 1view (12/22/17 20:14) Rx-Oxycodone/Apap 5-325 Mg (Rx-Percocet (12/22/17 21:00) Rx-Promethazine Hcl (Rx-Phenergan Supp) (12/22/17 20:47) Promethazine Injection (Phenergan Injec (12/22/17 21:15) Scopolamine Patch (Transderm-Scop Patch) (12/22/17 21:15) Promethazine Injection (Phenergan Injec (12/22/17 21:30) Medications Given in ED Current Medications Medications Dose Ordered Sig/Tk Route Start Time Stop Time Status Last Admin Dose Admin Ceftriaxone Sodium 1000 mg/ Sodium Chloride 50 ml @ 100 mls/hr ONCE ONCE IV 12/22/17 20:15 12/22/17 20:44 DC 12/22/17 20:38 100 MLS/HR Fentanyl Citrate 50 mcg ONCE ONCE IVP 12/22/17 18:45 12/22/17 18:46 DC 12/22/17 18:46 50 MCG Metoclopramide HCl 5 mg ONCE ONCE IVP 12/22/17 20:15 7/24/18 20:16 DC 12/22/17 20:14 5 MG Morphine Sulfate 5 mg ONCE ONCE IVP 12/22/17 20:15 12/22/17 20:16 DC 12/22/17 20:14 5 MG Oxycodone/ Acetaminophen 1 ea Q4H PRN PO 12/22/17 21:00 12/22/17 21:03 1 EA Promethazine HCl 25 mg STK-MED ONCE .ROUTE 12/22/17 19:25 12/22/17 19:27 DC 12/22/17 19:29 12.5 MG Scopolamine 1.5 mg ONCE ONCE TD 12/22/17 21:15 12/22/17 21:16 DC 12/22/17 21:18 1.5 MG Sodium Chloride 1,000 ml @ 0 mls/hr Q0M ONCE IV 12/22/17 19:10 12/22/17 19:11 DC 12/22/17 19:31 1,000 MLS/HR Vital Signs/I&O 12/22/17 12/22/17 17:43 19:00 Temp 98.3 Pulse 74 Resp 15 B/P (MAP) 143/94 (110) Pulse Ox 94 O2 Delivery Room Air Nasal Cannula O2 Flow Rate 2.00 Blood Pressure Mean: 110 Progress Progress Note : Progress Note Patient demonstrated a significant amount of blood in her urine. Stone search was pursued with CT scan. A large 1 cm stone was found in the right renal pelvis. Patient was treated with Phenergan and fentanyl for initial management of her symptoms. This proved to be insufficient for both pain and nausea management. Patient was further treated with Phenergan and morphine. She still had refractory nausea. A second dose of Phenergan and a scopolamine patch were applied. Patient was advised to remove the scopolamine patch if she suffered side effects such as blurry vision, intolerable dry mouth, or urinary retention. Rocephin was given as there were white cells in the urine and a urinary tract infection could be coexistent. She was further prescribed antibiotics for prophylaxis. Liter IV fluids was also infused. Take-home packets of Phenergan suppositories and Percocet were dispensed. Diagnostic Imaging Diagonstic Imaging: CT Plain Films/CT/US/NM/MRI: abdomen, pelvis Comments CT abdomen and pelvis viewed by me and report reviewed. See report below: NAME: REJI MAHONEY [facility] REC#: [id number] PT STATUS: REG ER : 1970 PHYSICIAN: ANGEL MATA MD ADMIT DATE: 12/22/17/ER Signed Date of Exam: 12/22/17 CT ABD/PELVIS WO(KIDNEY STONE) PROCEDURE: CT urinary tract, rule out kidney stone. TECHNIQUE: Multiple contiguous axial images were obtained through the abdomen and pelvis without the use of intravenous contrast. INDICATION: Right flank pain. COMPARISON: 06/07/16 FINDINGS: There is subsegmental atelectasis in the left base. The right lung base is clear. The gallbladder is surgically absent. There is mild right-sided hydronephrosis. There is an obstructive stone measuring 10 mm in the right renal pelvis. Additional nonobstructive stones are seen bilaterally. Both ureters and urinary bladder are grossly normal. The remainder of the solid organs of bowel are grossly unremarkable. There is no free air or free fluid. Distal ureters and urinary bladder are normal. Osseous structures age-appropriate. IMPRESSION: 1. Mild right-sided hydronephrosis secondary to an obstructive 10 mm stone in the right renal pelvis. 2. Additional nonobstructive bilateral renal calculi. 3. Subsegmental atelectasis in left lung base. Dictated by: Dictated on workstation # [id number] Dict: 12/22/171930 Trans: 12/22/172019 Interpreted by: BROOKE KERN Electronically signed by: BROOKE KERN 12/22/172019 Diagonstic Imaging: Xray Plain Films/CT/US/NM/MRI: abdomen Comments Abdominal x-ray viewed by me and report reviewed. See report below: NAME: REJI MAHONEY [facility] REC#: [id number] PT STATUS: REG ER : 1970 PHYSICIAN: ANGEL MATA MD ADMIT DATE: 12/22/17/ER Signed Date of Exam: 12/22/17 ABDOMEN/KUB 1VIEW INDICATION: Right flank pain COMPARISON: 06/07/2016 FINDINGS: Single view of the abdomen demonstrates mild constipation without obstruction or ileus. There is no free air. Bilateral renal calculi are seen. See dictated CT report. Cholecystectomy clips are present. IMPRESSION: Bilateral renal calculi. See dictated CT report. Dictated by: Dictated on workstation # [id number] Dict: 12/22/172038 Trans: 12/22/172052 Interpreted by: BROOKE KERN Electronically signed by: BROOKE KERN 12/22/172052 Departure Impression Primary Impression: Stone in renal pelvis Additional Impressions: Right flank pain Nausea Disposition: HOME, SELF-CARE Condition: Improved Departure-Patient Inst. Decision time for Depature: 20:25 Referrals: SABIHA MAST MD (PCP/Family) Primary Care Physician Patient Instructions: Kidney Stones in Adults Add. Discharge Instructions: Drink plenty of clear liquids. Use your pain medication and nausea medicine medication as prescribed. Follow-up with Dr. Hook tomorrow. Use your antibiotics until otherwise instructed. Return to care if symptoms are unmanageable at home or if you develop new symptoms such as temperature over 100 . All discharge instructions reviewed with patient and/or family. Voiced understanding. Scripts Promethazine HCl (Promethazine Tablet) 25 Mg Tablet 25 MG PO Q6H PRN for NAUSEA/VOMITING, #10 TAB Prov: ANGEL MATA MD 12/22/17 Oxycodone HCl/Acetaminophen (Percocet 5-325 mg Tablet) 1 Each Tablet 1-2 EACH PO Q4H PRN for PAIN-MODERATE TO SEVERE, #20 TAB Prov: ANGEL MATA MD 12/22/17 Cephalexin (Keflex) 500 Mg Capsule 500 MG PO QID, #30 CAP Prov: ANGEL MATA MD 12/22/17 Copy Copies To 1: SABIHA MAST MD Copies To 2: MARISA HOOK MD, JOSHUA T MD Dec 22, 2017 20:39
--- NOTE | 2017-12-22 20:44 | Diagnostic Imaging Report ---
INDICATION: Right flank pain COMPARISON: 06/07/2016 FINDINGS: Single view of the abdomen demonstrates mild constipation without obstruction or ileus. There is no free air. Bilateral renal calculi are seen. See dictated CT report. Cholecystectomy clips are present. IMPRESSION: Bilateral renal calculi. See dictated CT report. Dictated by: Dictated on workstation # [id number]
[2017-12-22] MEDS ORDERED: RX-PHENERGAN 25 MG SUPP PPK#3 PR STA (20:47)
[2017-12-22] MEDS ORDERED: RX-OXYCODONE/APAP 5-325 MG #4 TAB PK PO PRN (21:00)
[2017-12-22] MEDS ORDERED: PROMETHAZINE INJ 25 MG/ML (PHENERGAN) AMP IVP ONE ×2 (21:15→21:30)
[2017-12-22] MEDS ORDERED: SCOPOLAMINE 1.5 MG (TRANSDERM-SCOP) PATCH TD ONE (21:15)
[2017-12-22 21:32] VITALS: BP 153/94
[2017-12-29] MEDS ORDERED: NITR-65 PO (09:16)
[2017-12-29] MEDS ORDERED: HYDR-3870 PO (09:16)
== END 2017-12-22 21:32 | disposition home or self-care (01) ==
LOC: EDUNIT# 17:39 → ER 17:40
DX: N20.0 Calculus of kidney (principal); J45.909 Unspecified asthma, uncomplicated; G47.30 Sleep apnea, unspecified; I10 Essential (primary) hypertension; G43.909 Migraine, unspecified, not intractable, without status migrainosus; G40.909 Epilepsy, unspecified, not intractable, without status epilepticus; K21.9 Gastro-esophageal reflux disease without esophagitis; F41.9 Anxiety disorder, unspecified; F32.9 Major depressive disorder, single episode, unspecified; Z87.448 Personal history of other diseases of urinary system; Z85.44 Personal history of malignant neoplasm of other female genital organs; Z82.49 Family history of ischemic heart disease and other diseases of the circulatory system; Z87.440 Personal history of urinary (tract) infections; Z88.2 Allergy status to sulfonamides; Z88.5 Allergy status to narcotic agent; Z88.4 Allergy status to anesthetic agent; Z88.1 Allergy status to other antibiotic agents; Z88.6 Allergy status to analgesic agent; Z88.8 Allergy status to other drugs, medicaments and biological substances; Z87.19 Personal history of other diseases of the digestive system; Z90.49 Acquired absence of other specified parts of digestive tract; Z90.89 Acquired absence of other organs; Z90.710 Acquired absence of both cervix and uterus; Z98.51 Tubal ligation status
CPT/HCPCS: 36415; 74018; 74176; 80053; 81000; 83690; 85025; 87088; 96361; 96365; 96375; 96376

== ENCOUNTER 2017-12-25 19:23 | Emergency (ER) | payer MEDICARE, OTHER ==
[~2017-12-25] VITALS: Ht 154.9 cm; Wt 74.8 kg
[~2017-12-25 19:23] MED LIST changes: -ATOR10TA66 PO; -CEFU500T63 PO; -DOXY100C PO; -HYDR-3812 PO; -HYDR-3870 PO; -PROC-1 PO; -PROM25SU43 RC; -PROM25SU44 RC; -TAMS0.4C98 PO
[2017-12-25 19:52] LABS: BILIRUBIN,URINE NEGATIVE (NEGATIVE); CLARITY,URINE SLIGHTLY CLOUDY; COLOR,URINE YELLOW; GLUCOSE, URINE (UA) NEGATIVE (NEGATIVE); KETONES,URINE NEGATIVE (NEGATIVE); LEUKOCYTE ESTERASE ,URINE 3+ (NEGATIVE); NITRITE,URINE NEGATIVE (NEGATIVE); PH,URINE 6.5 (5-9); PROTEIN,URINE 3+ (NEGATIVE); UROBILINOGEN,URINE NORMAL (NORMAL)
[2017-12-25] MEDS ORDERED: oxyCODONE/APAP 10/325MG (PERCOCET 10) TABLET PO ONE (20:00)
[2017-12-25 20:03] LABS: BASOPHILS % (AUTO) 0 % (0-10); EOSINOPHILS # (AUTO) 0.2 10^3/uL (0.0-0.3); EOSINOPHILS % (AUTO) 4 % (0-10); HEMATOCRIT 38 % (35-52); HEMOGLOBIN 12.8 G/DL (11.5-16.0); LYMPHOCYTES # (AUTO) 2.8 X 10^3 (1.0-4.0); LYMPHOCYTES % (AUTO) 46 % (12-44); MEAN CORPUSCULAR HEMOGLOBIN 28 PG (25-34); MEAN CORPUSCULAR HGB CONC 34 G/DL (32-36); MEAN CORPUSCULAR VOLUME 84 FL (80-99); MEAN PLATELET VOLUME 10.9 FL (7.4-10.4); MONOCYTES # (AUTO) 0.5 X 10^3 (0.0-1.0); MONOCYTES % (AUTO) 9 % (0-12); NEUTROPHILS # (AUTO) 2.5 X 10^3 (1.8-7.8); NEUTROPHILS % (AUTO) 41 % (42-75); PLATELET COUNT 187 10^3/uL (130-400); RED BLOOD COUNT 4.51 10^6/uL (4.35-5.85); RED CELL DISTRIBUTION WIDTH 12.7 % (10.0-14.5)
[2017-12-25 20:05] LABS: BACTERIA,URINE TRACE /HPF; RBC,URINE 50-100 /HPF; WBC,URINE 25-50 /HPF
[2017-12-25 20:12] LABS: BUN/CREATININE RATIO 11; CALCIUM 9.8 MG/DL (8.5-10.1); CARBON DIOXIDE 26 MMOL/L (21-32); CHLORIDE 105 MMOL/L (98-107); CREATININE SERUM 0.95 MG/DL (0.60-1.30); GFR ESTIMATED > 60; GLUCOSE 111 MG/DL (70-105); POTASSIUM 3.8 MMOL/L (3.6-5.0); SODIUM 141 MMOL/L (135-145)
--- NOTE | 2017-12-25 20:37 | ED GU-Female ---
General Chief Complaint: -Female Stated Complaint: KIDNEY STONE Nursing Triage Note: PT PRESENTS TO ER WITH COMPLAINT OF KIDNEY STONE. STATES SHE WAS SEEN BY DR STEWART FOR A 10MM KIDNEY STONE. PT WAS INSTRUCTED BY TERRY TO COME TO ER IF HER PAIN DID NOT IMPROVE WITH THE LORATABS HE PRESECRIBED. PT STATES SHE FEELS THE STONE IS MOVING. LAST LORATAB WAS AROUND 4P Nursing Sepsis Screen: No Definite Risk Source: patient Exam Limitations: no limitations History of Present Illness Date Seen by Provider: Dec 25, 2017 Time Seen by Provider: 20:35 Initial Comments to ER with reports of right flank pain. She has a 10 mm stone in the right renal pelvis. She is on hydrocodone at home which she states is not helping and her pain is simply intolerable. She has nausea without vomiting. She cannot take oxycodone because it nauseates her further. She is allergic to Toradol but doesn't remember what it does to her. She is allergic to Ultram. She is noted to be hypoxic frequently dozing off during her stay in the emergency room with oxygen saturation of 88%. Her at the bedside has to remind her to take a deep breath rather frequently. Timing/Duration: constant Severity/Quality: moderate Location: right flank Radiation: none Activities at Onset: none Prior Genitourinary Problems: none Associated Symptoms: dysuria Allergies and Home Medications Allergies Coded Allergies: Sulfa (Sulfonamide Antibiotics) (Unverified Allergy, Unknown, 09/25/13) hydrocodone (Verified Allergy, Unknown, itching, 10/26/14) ketorolac tromethamine (Verified Allergy, Unknown, 05/04/11) levofloxacin (Unverified Allergy, Unknown, 09/25/13) GIVES HER THRUSH nitrofurantoin (Unverified Allergy, Unknown, 12/22/17) ondansetron (Verified Allergy, Unknown, 10/13/15) tramadol (Unverified Allergy, Unknown, 06/11/16) Home Medications Alprazolam 1 Mg Tablet, 1 MG PO BID, (Reported) Amlodipine Besylate 2.5 Mg Tablet, 2.5 MG PO DAILY, (Reported) Atorvastatin Calcium 10 Mg Tablet, 10 MG PO HS, (Reported) Cephalexin 500 Mg Capsule, 500 MG PO QID Prescribed by: ANGEL DOBSON on 12/22/172038 Gabapentin 600 Mg Tablet, 1,200 MG PO BID, (Reported) TAKE 2 (600MG) TABS Metoprolol Tartrate 50 Mg Tablet, 50 MG PO HS, (Reported) Oxycodone HCl/Acetaminophen 1 Each Tablet, 1-2 EACH PO Q4H PRN for PAIN- MODERATE TO SEVERE Prescribed by: ANGEL DOBSON on 12/22/172038 Promethazine HCl 25 Mg Tablet, 25 MG PO Q6H PRN for NAUSEA/VOMITING Prescribed by: ANGEL DOBSON on 12/22/172038 Quetiapine Fumarate 300 Mg Tablet, 300 MG PO HS, (Reported) Trazodone HCl 300 Mg Tablet, 300 MG PO HS, (Reported) Patient Home Medication List Home Medication List Reviewed: Yes Review of Systems Constitutional: see HPI; No chills EENTM: see HPI Respiratory: no symptoms reported Cardiovascular: no symptoms reported Genitourinary: see HPI, flank pain Musculoskeletal: no symptoms reported Skin: no symptoms reported Psychiatric/Neurological: No Symptoms Reported Endocrine: No Symptoms Reported Hematologic/Lymphatic: No Symptoms Reported Past Zodfqsb-Fvowaw-Atuych Hx Patient Social History Alcohol Use: Denies Use Recreational Drug Use: No (UNKNOWN) Smoking Status: Never a Smoker 2nd Hand Smoke Exposure: No Recent Foreign Travel: No Contact w/Someone Who Travel: No Recent Infectious Disease Expo: No Recent Hopitalizations: No Immunizations Up To Date Date of Pneumonia Vaccine: Mar 01, 2013 Date of Influenza Vaccine: Mar 01, 2015 Seasonal Allergies Seasonal Allergies: No Past Medical History Surgeries: Yes (breast reduction, several cysto's with UD, lap santa) Appendectomy, Bladder Surgery, Gallbladder, Hysterectomy, Tubal Ligation Respiratory: Yes Asthma, Sleep Apnea Currently Using CPAP: Yes Currently Using BIPAP: No Cardiac: Yes Hypertension, Irregular Heartbeat Neurological: Yes Headaches /Migraines, Seizure Disorder Reproductive Disorders: No 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 Problems, 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 Sexually Transmitted Disease: No HIV/AIDS: No Genitourinary: Yes Bladder Infection, Kidney Stones, Renal Failure, UTI-Chronic Gastrointestinal: Yes Gastroesophageal Reflux, Pancreatitis, Chronic Diarrhea, Hiatal Hernia Musculoskeletal: Yes Fibromyalgia, Chronic Back Pain Endocrine: No HEENT: No Cancer: Yes Vaginal What Type of Treatment Did You: Surgical Intervention Psychosocial: Yes Anxiety, Depression Integumentary: No Blood Disorders: No Adverse Reaction/Blood Tranf: No Family Medical History Dementia 19 FATHER Family history: Cardiovascular disease 19 FATHER Family history: Diabetes mellitus G8 SISTER Family history: Hypertension 19 FATHER 19 MOTHER History of - respiratory disease 19 MOTHER Seizure disorder G8 SISTER No Family History of: Abdominal aortic aneurysm Parmer's disease Alcoholism Aphasia Cancer Cancer of colon Cataract Chest pain Congenital heart disease Congestive heart failure Cystic fibrosis Family history: Osteoporosis Family history: Thyroid disorder Headache Hearing loss Heart disease Hereditary disease History of - anemia History of - disorder History of drug abuse Human immunodeficiency virus (HIV) seropositivity Hypercholesterolemia Infertile Kidney disease Malignant neoplasm of lung Myocardial infarction Parkinson's disease Prostate cancer Psychotic disorder Stroke Tuberculosis Visual impairment No Pertinent Family Hx, Heart Disease Physical Exam Vital Signs Vital Signs - First Documented 12/25/17 19:27 Temp 98.0 Pulse 89 Resp 18 B/P (MAP) 141/99 (113) Pulse Ox 97 O2 Delivery Room Air Capillary Refill : Less Than 3 Seconds Height, Weight, BMI Height: 5'1.00" Weight: 165lbs. 0.0oz. 74.496459zc; 29.9 BMI Method:Stated General Appearance: WD/WN, no apparent distress, other (lethargic, slow speech) HEENT: PERRL/EOMI, normal ENT inspection Neck: non-tender, full range of motion Respiratory: normal breath sounds, no respiratory distress, no accessory muscle use Gastrointestinal: normal bowel sounds, non tender Extremities: normal range of motion, non-tender Neurologic/Psychiatric: alert, normal mood/affect, oriented x 3 Skin: normal color, warm/dry Progress/Results/Core Measures Suspected Sepsis Recent Fever Within 48 Hours: No Infection Criteria Present: None New/Unexplained Altered Menta: No Sepsis Screen: No Definite Risk SIRS Temperature:98.0 Pulse: 89 Respiratory Rate: 18 Laboratory Tests 12/25/17 19:43: White Blood Count 6.0 Blood Pressure 141 /99 Mean: 113 Laboratory Tests 12/25/17 19:43: Creatinine 0.95, Platelet Count 187 Results/Orders Lab Results Laboratory Tests Test 12/25/17 19:43 Range/Units White Blood Count 6.0 4.3-11.0 10^3/uL Red Blood Count 4.51 4.35-5.85 10^6/uL Hemoglobin 12.8 11.5-16.0 G/DL Hematocrit 38 35-52 % Mean Corpuscular Volume 84 80-99 FL Mean Corpuscular Hemoglobin 28 25-34 PG Mean Corpuscular Hemoglobin Concent 34 32-36 G/DL Red Cell Distribution Width 12.7 10.0-14.5 % Platelet Count 187 130-400 10^3/uL Mean Platelet Volume 10.9 H 7.4-10.4 FL Neutrophils (%) (Auto) 41 L 42-75 % Lymphocytes (%) (Auto) 46 H 12-44 % Monocytes (%) (Auto) 9 0-12 % Eosinophils (%) (Auto) 4 0-10 % Basophils (%) (Auto) 0 0-10 % Neutrophils # (Auto) 2.5 1.8-7.8 X 10^3 Lymphocytes # (Auto) 2.8 1.0-4.0 X 10^3 Monocytes # (Auto) 0.5 0.0-1.0 X 10^3 Eosinophils # (Auto) 0.2 0.0-0.3 10^3/uL Basophils # (Auto) 0.0 0.0-0.1 10^3/uL Urine Color YELLOW Urine Clarity SLIGHTLY CLOUDY Urine pH 6.5 5-9 Urine Specific [place] 1.010 L 1.016-1.022 Urine Protein 3+ H NEGATIVE Urine Glucose (UA) NEGATIVE NEGATIVE Urine Ketones NEGATIVE NEGATIVE Urine Nitrite NEGATIVE NEGATIVE Urine Bilirubin NEGATIVE NEGATIVE Urine Urobilinogen NORMAL NORMAL MG/DL Urine Leukocyte Esterase 3+ H NEGATIVE Urine RBC (Auto) 5+ H NEGATIVE Urine RBC 50-100 H /HPF Urine WBC 25-50 H /HPF Urine Squamous Epithelial Cells 2-5 /HPF Urine Crystals NONE /LPF Urine Bacteria TRACE /HPF Urine Casts NONE /LPF Urine Mucus NEGATIVE /LPF Urine Culture Indicated YES Sodium Level 141 135-145 MMOL/L Potassium Level 3.8 3.6-5.0 MMOL/L Chloride Level 105 98-107 MMOL/L Carbon Dioxide Level 26 21-32 MMOL/L Anion Gap 10 5-14 MMOL/L Blood Urea Nitrogen 10 7-18 MG/DL Creatinine 0.95 0.60-1.30 MG/DL Estimat Glomerular Filtration Rate > 60 BUN/Creatinine Ratio 11 Glucose Level 111 H 70-105 MG/DL Calcium Level 9.8 8.5-10.1 MG/DL My Orders Orders - LAURA FINCH SAMPLER [employer] WASTE Cbc With Automated Diff (12/25/17 19:55) Basic Metabolic Panel (12/25/17 19:55) Oxycodone/Acet 10/325mg Tablet (Percocet (12/25/17 20:00) Abdomen/Kub 1[place] (12/25/17 20:08) Prochlorperazine Injection (Compazine In (12/25/17 20:45) Ibuprofen Tablet (Motrin Tablet) (12/25/17 20:45) Ceftriaxone Injection (Rocephin Injectio (12/25/17 20:45) Vital Signs/I&O 12/25/17 19:27 Temp 98.0 Pulse 89 Resp 18 B/P (MAP) 141/99 (113) Pulse Ox 97 O2 Delivery Room Air Capillary Refill : Less Than 3 Seconds Blood Pressure Mean: 113 Point of Care Testing Urine -Bedside: Negative Departure Communication (Admissions) [address] Howell. He just saw the patient today and gave her a prescription for Lorcet. He plans to do lithotripsy on the right on Thursday ( today is Thursday). He states that the stone on the right should not be causing much pain due to its size unless there is a ball-valve mechanism with the stone falling into the UPJ and temporarily obstructing. I'm not going to prescribe either at home or in the emergency room any additional opiates given her delayed slow speech and the intermittent bradypnea and mild hypoxia. I'll prescribe her Ceftin antibiotics and she'll keep her appointment with Dr. Howell. Impression Primary Impression: Urinary tract infection Additional Impression: Nephrolithiasis Disposition: 01 HOME, SELF-CARE Condition: Stable Departure-Patient Inst. Decision time for Depature: 20:50 Referrals: SABIHA MAST MD (PCP/Family) Primary Care Physician Patient Instructions: Urinary Tract Infection, Adult (DC) Add. Discharge Instructions: 1. Take antibiotics as directed in addition to your hydrocodone for pain. Keep your appointment with Dr. Howell. Start the antibiotics tomorrow morning. All discharge instructions reviewed with patient and/or family. Voiced understanding. Scripts Cefuroxime Axetil (Cefuroxime) 500 Mg Tablet 500 MG PO BID, #10 TAB Prov: LAURA FINCH SAMPLER [employer] WASTE 12/25/17 LAURA FINCH SAMPLER [employer] WASTE Dec 25, 2017 20:37
--- NOTE | 2017-12-25 20:44 | Diagnostic Imaging Report ---
INDICATION: Kidney stone, flank pain. COMPARISON: 12/22/2017. EXAMINATION: Single view of the abdomen was obtained. FINDINGS: Unchanged bilateral renal calculi. Single ureteral stone is seen in the left mid pelvis. No bowel obstruction is seen. IMPRESSION: Unchanged bilateral renal calculi and distal left ureteral calculus. Dictated by: Dictated on workstation # [id number]
[2017-12-25] MEDS ORDERED: cefTRIAXone INJECTION 1,000 MG in NS (IVPB) 50 ML IV ONE (20:45)
[2017-12-25] MEDS ORDERED: IBUPROFEN 800 MG (MOTRIN) TAB PO ONE (20:45)
[2017-12-25] MEDS ORDERED: PROCHLORPERAZINE 10 MG/2ML INJ (COMPAZINE) IV ONE (20:45)
[2017-12-25] MEDS ORDERED: CEFU500T63 PO (20:53)
[2017-12-25 21:34] VITALS: BP 141/99
[2017-12-29] MEDS ORDERED: NITR-65 PO (09:16)
[2017-12-29] MEDS ORDERED: HYDR-3870 PO (09:16)
== END 2017-12-25 21:34 | disposition home or self-care (01) ==
LOC: EDUNIT# 19:23 → ER 19:24
DX: N39.0 Urinary tract infection, site not specified (principal); N20.0 Calculus of kidney; J45.909 Unspecified asthma, uncomplicated; G47.30 Sleep apnea, unspecified; I10 Essential (primary) hypertension; G43.909 Migraine, unspecified, not intractable, without status migrainosus; G40.909 Epilepsy, unspecified, not intractable, without status epilepticus; K21.9 Gastro-esophageal reflux disease without esophagitis; F41.9 Anxiety disorder, unspecified; F32.9 Major depressive disorder, single episode, unspecified; Z88.2 Allergy status to sulfonamides; Z88.5 Allergy status to narcotic agent; Z87.19 Personal history of other diseases of the digestive system; Z85.44 Personal history of malignant neoplasm of other female genital organs; Z82.49 Family history of ischemic heart disease and other diseases of the circulatory system; Z88.4 Allergy status to anesthetic agent; Z88.1 Allergy status to other antibiotic agents; Z88.8 Allergy status to other drugs, medicaments and biological substances; Z88.6 Allergy status to analgesic agent; Z90.89 Acquired absence of other organs; Z90.710 Acquired absence of both cervix and uterus; Z98.51 Tubal ligation status
CPT/HCPCS: 36415; 74018; 80048; 81000; 84703; 85025; 87088; 96365; 96375

== ENCOUNTER → 2017-12-25 | Outpatient (CLI) | payer MEDICARE, OTHER ==
[~2017-12-25] MED LIST changes: +ATOR10TA66 PO; +CEFU500T63 PO; +DOXY100C PO; +HYDR-3812 PO; +HYDR-3870 PO; +OXYC-197 PO; +PROC-1 PO; +PROM25SU43 RC; +PROM25SU44 RC; +TAMS0.4C98 PO
--- NOTE | 2017-12-25 10:39 | Diagnostic Imaging Report ---
Supine KUB at 921. Indication: Nephrolithiasis As noted, there are prior exams of 12/22/2017. There are calcifications overlying both kidneys. The calcific density low in the pelvis on the left seen previously is also again evident and no different. There is also a small calcification along the inferior margin of the left sacroiliac joint. There is no other pathologic calcification evident. There is no acute abnormality of the abdomen. Surgical clips are again seen overlying the left lower quadrant and the right upper quadrant. Impression: When compared to the prestudy, there does not appear to have been any significant change. The calcifications overlying the kidneys and the left pelvis seen previously are again evident and no different. No new abnormality has developed. Dictated by: Dictated on workstation # [id number]
== END ==
LOC: RAD 08:51
PROVIDERS: ATTEND Urology
DX: N20.0 Calculus of kidney (principal)
CPT/HCPCS: 74018

== ENCOUNTER 2017-12-28 05:33 | Outpatient (CLI) | payer MEDICARE ==
[~2017-12-28] VITALS: Ht 154.9 cm; Wt 74.8 kg
[~2017-12-28 05:33] MED LIST changes: +CEFU500T63 PO
[2017-12-29] MEDS ORDERED: HYDR-3870 PO (09:16)
[2017-12-29] MEDS ORDERED: NITR-65 PO (09:16)
[2017-12-29] MEDS ORDERED: PROM25SU43 RC (19:35)
== END 2017-12-28 10:35 | disposition home or self-care (01) ==
LOC: PREOP 05:33
PROVIDERS: ATTEND Urology
DX: Z01.818 Encounter for other preprocedural examination (principal)

== ENCOUNTER 2017-12-29 05:57 | Day surgery (SDC) | payer MEDICARE, OTHER ==
[~2017-12-29] VITALS: Ht 154.9 cm; Wt 74.8 kg
[2017-12-29 06:25] VITALS: BP 161/107
[2017-12-29] MEDS ORDERED: SEVOFLURANE (ULTANE) 15 ML INHAL SOLN ONE ×2 (06:42→08:22)
[2017-12-29] MEDS ORDERED: proPOfol 200 MG/20 ML (DIPRIVAN) VIAL IV ONE (06:42)
[2017-12-29] MEDS ORDERED: LIDOCAINE PF 2% 5 ML (XYLOCAINE) VIAL ONE (06:42)
[2017-12-29] MEDS ORDERED: DEXAMETHASONE 10 MG/ML (DECADRON) 1 ML VIAL ONE (06:42)
[2017-12-29] MEDS ORDERED: fentaNYL INJECTION 100 MCG/2 ML AMP ONE ×2 (06:42→07:41)
[2017-12-29] MEDS ORDERED: MIDAZOLAM 2 MG/2 ML (VERSED) VIAL ONE (06:42)
[2017-12-29] MEDS ORDERED: cefTRIAXone INJECTION 1,000 MG in NS (IVPB) 50 ML IV ONE (07:00)
[2017-12-29] MEDS: LACTATED RINGERS 1,000 ML IV PRN ×2 (07:04→09:56)
[2017-12-29] MEDS ORDERED: CATHETER FLUSH 10 ML SYR IV PRN (07:15)
--- NOTE | 2017-12-29 07:16 | Progress Note-Pre Operative ---
Pre-Operative Progress Note H&P Reviewed The H&P was reviewed, patient examined and no changes noted. Date Seen by Provider: Dec 29, 2017 Time Seen by Provider: 07:15 Date H&P Reviewed: Dec 29, 2017 Time H&P Reviewed: 07:15 Pre-Operative Diagnosis: BILATERAL RENAL STONES MARISA HOOK MD Dec 29, 2017 7:16 am
--- NOTE | 2017-12-29 07:35 | Progress Note-Post Operative ---
Post-Operative Progess Note Surgeon (s)/Category Director (s) Surgeon MARISA HOOK MD Category Director: N/A Pre-Operative Diagnosis BILATERAL RENAL STONES Post-Operative Diagnosis SAME Procedure & Operative Findings Date of Procedure 12/29/17 Procedure Performed/Findings RT ESWL Anesthesia Type GENERAL Estimated Blood Loss Estimated blood loss (mL): N/A Specimens/Packing Specimens Removed N/A Packing: N/A MARISA HOOK MD Dec 29, 2017 7:35 am
--- NOTE | 2017-12-29 07:37 | Discharge Inst-Urology ---
Discharge Inst-Urology Discharge Medications New, Converted, or Re-newed RX: RX on Chart Patient Instructions/Follow Up Plan Please make appointment to been seen in office Thursday 01/11, APRIL prior to it. APRIL on way home Post ESWL instructions Increase oral fluids for 48 hours and then as needed. Diet and Activity as tolerated. If questions or concerns contact your physician Or seek help at emergency department. MARISA HOOK MD Dec 29, 2017 7:37 am
--- NOTE | 2017-12-29 07:45 | Diagnostic Imaging Report ---
INDICATION: Nephrolithiasis. Comparison made with prior examination 12/25/17. FINDINGS: There are calcifications projected over both kidneys. Bowel gas pattern is nonspecific. There are surgical clips in the left pelvis. The osseous structures are unremarkable. IMPRESSION: Bilateral nephrolithiasis. Additionally, there is an unchanged calcification in left hemipelvis. While this may be a phlebolith, the possibility of a distal left ureteral stone cannot be excluded. Recommend clinical correlation. Dictated by: Dictated on workstation # [id number]
[2017-12-29] MEDS ORDERED: PROMETHAZINE INJ 25 MG/ML (PHENERGAN) AMP IVP PRN (08:15)
[2017-12-29] MEDS: HYDROmorphone 1 MG/ML (DILAUDID) 1 ML SYRINGE IV PRN ×4 (08:37→09:20)
--- NOTE | 2017-12-29 08:41 | Anesthesia-General Post-Op ---
General Patient Condition Mental Status/LOC: Same as Preop Cardiovascular: Satisfactory Nausea/Vomiting: Absent Respiratory: Satisfactory Pain: Controlled Complications: Absent Post Op Complications Complications None Follow Up Care/Instructions Patient Instructions None needed. Anesthesia/Patient Condition Patient Condition Patient is doing well, no complaints, stable vital signs, no apparent adverse anesthesia problems. No complications reported per nursing. JAVON RAMIREZ CRNA Dec 29, 2017 08:41
[2017-12-29] MEDS ORDERED: HYDR-3870 PO ×2 (09:16)
[2017-12-29] MEDS ORDERED: NITR-65 PO ×2 (09:16)
[2017-12-29] MEDS ORDERED: HYDROcodone/APAP 5 MG/325 MG (LORTAB) TAB PO PRN (09:30)
[2017-12-29] MEDS: fentaNYL INJECTION 100 MCG/2 ML AMP IVP PRN ×2 (09:35→09:40)
[2017-12-29 10:10] VITALS: BP 134/102
[2017-12-29] MEDS ORDERED: diphenhydrAMINE 50 MG/ML INJ (BENADRYL) ONE (10:22)
[2017-12-29] MEDS ORDERED: diphenhydrAMINE 50 MG/ML INJ (BENADRYL) IVP ONE (10:30)
[2017-12-29 10:40] VITALS: BP 130/95
[2017-12-29 11:10] VITALS: BP 152/89
[2017-12-29 11:15] VITALS: BP 152/89
--- NOTE | 2017-12-29 11:46 | Diagnostic Imaging Report ---
INDICATION: Status post ESWL. COMPARISON: 12/22/2017 and earlier same day. FINDINGS: Two supine radiographic views of the abdomen were obtained. The previously described calculus in the location of the right renal pelvis is now no longer identifiable radiographically. Bulky calculus is again identified within the inferior pole of the left kidney and likely within the distal left ureter. Small bowel loops are nondistended. There is no large collection of free intraperitoneal air. IMPRESSION: 1. Bulky right renal pelvis calculus now no longer conspicuous likely on the basis of interval fragmentation. 2. Redemonstration of left renal and distal left ureteral calculi. Dictated by: Dictated on workstation # [id number]
--- NOTE | 2017-12-29 14:31 | OPERATIVE REPORT ---
DATE OF SERVICE: 12/29/2017 PREOPERATIVE DIAGNOSIS: Bilateral renal stone. POSTOPERATIVE DIAGNOSIS: Bilateral renal stone. OPERATION PERFORMED: Right ESWL. SURGEON: Eber Hook MD. ANESTHESIA: General. COMPLICATIONS: None. DESCRIPTION OF PROCEDURE: Under satisfactory general anesthesia, the patient in supine position on the ESWL table, the right renal stone was localized. Shocks were delivered at kV of 5. A total of 3000 shocks completely fragmented the stone with nice layering. We also went ahead and mapped the whole ureter to make sure there are no fragments that dropped in it and it was negative. The patient received 40 mg of Lasix at the end of the procedure. She was given no Toradol since she is allergic to it. She tolerated the procedure and anesthesia well and was sent to recovery room in stable condition. Job ID: [id number] DocumentID: [id number] Dictated Date: 12/29/2017 08:08:56 Operations Research Manager Date: 12/29/2017 14:30:14 Dictated By: EBER HOOK MD
[2017-12-29] MEDS ORDERED: PROM25SU43 RC (19:35)
== END 2017-12-29 11:30 | disposition home or self-care (01) ==
LOC: SDC 05:57
PROVIDERS: ATTEND Urology
DX: N20.0 Calculus of kidney (principal); I10 Essential (primary) hypertension; J45.909 Unspecified asthma, uncomplicated; G47.33 Obstructive sleep apnea (adult) (pediatric); R56.9 Unspecified convulsions; Z79.899 Other long term (current) drug therapy
CPT/HCPCS: 74018; 87081

== ENCOUNTER 2017-12-29 16:44 | Emergency (ER) | payer MEDICARE, OTHER ==
[~2017-12-29] VITALS: Ht 154.9 cm; Wt 74.8 kg
[~2017-12-29 16:44] MED LIST changes: +HYDR-3870 PO
--- OUTSIDE RECORDS SUMMARY | 2017-12-29 16:50 | XMS REPORT | Clinical Summary ---
Author Author [facility] Organization [facility] Address Unknown Phone Unavailable Care Team Providers Care Frame Table Operator Name Role Phone Majo Young RN Unavailable Unavailable Areli Sanchez DO PCP Source Comments Some departments are not documenting in the electronic medical record. If you do not see the information that you expected, contact Release of Information in the Health Information Management department at [phone] for further assistance in locating additional records.[facility] Allergies Active Allergy Reactions Severity Noted [...]
--- OUTSIDE RECORDS SUMMARY | 2017-12-29 16:51 | XMS REPORT ---
Author Author ITZ JUNIOR [facility] Address [address] [place] [address] Care Team Providers Care Event Planning Intern Name Role Phone ROSA JUNIORA Unavailable PROBLEMS Type Condition ICD9-CM Code ZZZ56-ZD Code Onset Dates Condition Status SNOMED Code Problem FRANCIS (generalized anxiety disorder) F41.1 Active 14611608 Problem Conversion disorder (or hysterical neurosis, conversion type) F44.9 Active 49528019 Problem Thoracic disc herniation M51.24 Active 009124621 Problem Major depressive disorder in partial remission F32.4 Active 39814686 Problem Restless leg syndrome G25.81 Active 49802001 Problem Mild episode of recurrent major depressive disorder F33.0 Active 867467976 Problem Paroxysmal tachycardia I47.9 Active 54948970 Problem Seizure disorder G40.909 Active 949493046 Problem Constipation, unspecified constipation type K59.00 Active 62556221 Problem Slow transit constipation K59.01 Active 35094621 ALLERGIES No Information ENCOUNTERS Encounter Location Date Diagnosis [facility] [id number] [place] [address] 76235- 2390 Dec, [facility] [id number] [place] [address] 23368- 1624 Nov, [facility] [id number] [place] [address] 25681- 9754 Nov, [facility] [id number] [place] [address] 02434- 2607 September, [facility] [id number] [place] [address] 79579- 4594 September, [facility] [id number] [place] [address] 95044- 0285 September, Major depressive disorder in partial remission F32.4 ; FRANCIS ( generalized anxiety disorder) F41.1 and Restless leg syndrome G25.81 [facility] [id number] [place] [address] 50322- 1601 September, [facility] [id number] [place] [address] 60812- 5115 Jul, [facility] [id number] [place] [address] 73134- 7151 Jul, Dorsalgia, unspecified M54.9 [facility] [id number] [place] [address] 48467- 8216 Jul, Mild episode of recurrent major depressive disorder F33.0 and FRANCIS (generalized anxiety disorder) F41.1 [facility] [id number] [place] [address] 38912- 5524 May, [facility] [id number] [place] [address] 38704 -0354 May, Dysuria R30.0 and Acute cystitis with hematuria N30.01 [facility] [id number] [place] [address] 46725- 6997 Apr, [facility] [id number] [place] [address] 55412- 4160 Apr, Major depressive disorder in partial remission F32.4 and FRANCIS (generalized anxiety disorder) F41.1 [facility] [id number] [place] [address] 28929- 2333 Mar, Paroxysmal tachycardia I47.9 [facility] [id number] [place] [address] 22281- 6483 Mar, Paroxysmal tachycardia I47.9 and Pain of left lower extremity M79.605 [facility] [id number] [place] [address] 21219- 6142 Mar, FRANCIS (generalized anxiety disorder) F41.1 and Major depressive disorder in partial remission F32.4 [facility] [id number] [place] [address] 62597- 3253 Jan, [facility] [address] [address]- 5971 14 Jan, 2017 [facility] [id number] [place] [address] 09830- 2258 Jan, [facility] [id number] [place] [address] 93383 -2540 Dec, Constipation, unspecified constipation type K59.00 [facility] [id number] [place] [address] 56121- 8828 Dec, [facility] [id number] [place] [address] 41021- 6657 Nov, [facility] [id number] [place] [address] 82774- 7313 Nov, Major depressive disorder in partial remission F32.4 and FRANCIS (generalized anxiety disorder) F41.1 [facility] [id number] [place] [address] 28030 -9576 Oct, Abdominal pain R10.9 and Slow transit constipation K59.01 [facility] [id number] [place] [address] 52327- 1834 Aug, Major depressive disorder in partial remission F32.4 ; FRANCIS ( generalized anxiety disorder) F41.1 ; Conversion disorder (or hysterical neurosis, conversion type) F44.9 ; Dorsalgia, unspecified M54.9 and Long-term use of high-risk medication Z79.899 [facility] [id number] [place] [address] 35659- 6391 Aug, [facility] [id number] [place] [address] 71960- 3958 15 Jul, 2016 Paroxysmal tachycardia I47.9 [facility] [address] [address]- 8077 10 Jul, 2016 Paroxysmal tachycardia I47.9 [facility] [id number] [place] [address]- 7834 Jun, [facility] [id number] [place] [address] 36383- 6375 Jun, Major depressive disorder in partial remission F32.4 ; FRANCIS ( generalized anxiety disorder) F41.1 and Conversion disorder (or hysterical neurosis, conversion type) F44.9 [facility] [id number] [place] [address] 36422 -4868 May, Pelvic pain R10.2 [facility] [id number] [place] [address] 98107 -6464 Apr, Gastroenteritis K52.9 [facility] [address] 73868 -8329 Apr, Blood in urine R31.9 and Acute cystitis with hematuria N30.01 [facility] [address] 26883- 2728 Apr, Major depressive disorder in partial remission F32.4 ; FRANCIS ( generalized anxiety disorder) F41.1 and Conversion disorder (or hysterical neurosis, conversion type) F44.9 [facility] [id number] [place] [address] 63807- 0857 Apr, [facility] [id number] [place] [address] 72671- 0157 Apr, Abnormal mammogram R92.8 [facility] [id number] [place] [address] 24518- 9094 Mar, [facility] [id number] [place] [address] 71708- 1958 Mar, Gastroenteritis K52.9 and Seizure disorder G40.909 [facility] [id number] [place] [address] 02957- 5008 Dec, [facility] [id number] [place] [address] 76760 -2228 Dec, Other headache syndrome G44.89 [facility] [address] [address]- 5856 Dec, [facility] [id number] [place] [address] 54501- 2546 Dec, Thoracic disc herniation M51.24 [facility] [id number] [place] [address] 63300- 0846 Dec, [facility] [id number] [place] [address] 18801- 7835 Nov, Major depressive disorder in partial remission F32.4 and FRANCIS (generalized anxiety disorder) F41.1 [facility] [id number] [place] [address] 96659- 1756 Nov, [facility] [id number] [place] [address] 97429- 1156 Nov, Dorsalgia, unspecified M54.9 [facility] [id number] [place] [address] 06824- 4217 Oct, [facility] [id number] [place] [address] 36380- 8553 September, [facility] [address] [place] [address] 07833- 6289 Aug, [facility] [address] [place] [address] 15049- 7791 Aug, Major depressive disorder in partial remission F32.4 and FRANCIS (generalized anxiety disorder) F41.1 [facility] [address] [address]- 5726 Aug, [facility] [id number] [place] [address] 34680- 3966 Jul, Abnormal mammogram R92.8 [facility] [address] [address]- 2398 Jul, [facility] [address] [address]- 3598 15 Jul, 2015 [facility] [address] [address]- 2950 14 Jul, 2015 [facility] [address] [address]- 6101 Jul, [facility] [address] [address]- 5805 Jul, [facility] [id number] [place] [address] 29614- 7361 Jul, [facility] [address] [place] [address] 522187- 0989 Jun, Major depressive disorder in partial remission F32.4 and FRANCIS (generalized anxiety disorder) F41.1 [facility] [id number] [place] [address] 42704- 4095 Jun, [facility] [address] [address]- 1585 May, [facility] [address] [address]- 3766 Apr, [facility] [address] [address]- 9654 Mar, Major depressive disorder, recurrent episode, moderate F33.1 ; PTSD (post-traumatic stress disorder) F43.10 and FRANCIS (generalized anxiety disorder) F41.1 [facility] [address] [address]- 5631 Mar, [facility] [id number] 0708 Mar, [facility] [address] 7679 Mar, [facility] [address] [address]- 8533 Mar, [facility] [id number] [address]- 7839 23 Jan, 2015 [facility] [address] [address]- 5926 15 Jan, 2015 [facility] [address] [address]- 7206 15 Jan, 2015 [facility] [address] [place] [address] 68525- 0374 14 Jan, 2015 Thoracic disc herniation 722.11 [facility] [id number] [address]- 4448 Dec, [facility] [address] [place] [address] 80148- 7373 Dec, [facility] [address] [address]- 9084 Dec, [facility] [address] [place] [address] 80088- 5334 Nov, [facility] [address] [address]- 0784 Nov, Generalized anxiety disorder 300.02 ; Posttraumatic stress disorder 309.81 and Major depressive disorder, recurrent episode, moderate 296.32 [facility] [address] [address]- 7750 Nov, [facility] [address] [address]- 8371 Nov, [facility] [address] [address]- 7548 Oct, [facility] [address] 7905 Oct, [facility] [address] 4107 Oct, [facility] [address] [address]- 9148 September, [facility] [place] [facility] [address] [id number] [place] [address]- 7225 September, [facility] [place] [facility] [address] [id number] [place] [address]- 8017 Aug, [facility] [place] [facility] [address] [id number] [place] [address]- 3620 Aug, [facility] [place] [facility] [address] [id number] [place] [address]- 0376 Jul, [facility] [place] [facility] [address] [id number] [place] [address]- 3388 Jul, [facility] [place] [facility] [address] [id number] [place] [address]- 8923 Jul, [facility] [place] [facility] [address] [id number] [place] [address]- 9426 Jul, [facility] [place] [facility] [address] [id number] [place] [address]- 0334 Jul, [facility] [place] [facility] [address] [id number] [place] [address]- 1683 Jul, [facility] [place] [facility] [address] [id number] [place] [address]- 4775 Jul, [facility] [place] [facility] [address] [id number] [place] [address]- 3544 Jul, [facility] [place] [facility] [address] [id number] [address]- 9759 Jul, [facility] [place] [facility] [address] [id number] [place] [address]- 8495 Jul, [facility] [place] [facility] [address] [id number] [place] 5623 Jun, [facility] [place] [facility] [address] [id number] [place] [address]- 5240 Jun, [facility] [place] [facility] [address] [id number] [place] [address]- 8533 Jun, [facility] [place] [facility] [address] [id number] [place] [address]- 2991 May, [facility] [place] [facility] [address] [id number] [place] [address]- 8729 Apr, [facility] [place] [facility] [address] [id number] [place] [address]- 5886 Apr, [facility] [place] [facility] [address] [id number] [place] [address]- 3959 Apr, [facility] [place] [facility] [address] [id number] [place] [address]- 9710 Apr, [facility] [place] [facility] [address] [id number] [place] [address]- 8349 Apr, [facility] [place] [facility] [address] [id number] [place] [address]- 2467 Apr, [facility] [place] [facility] [address] [id number] [place] [address]- 3503 Apr, [facility] [place] [facility] [address] [id number] [place] [address]- 0908 Apr, [facility] [place] [facility] [address] [id number] [place] [address]- 2994 Mar, [facility] [place] [facility] [address] [id number] [place] [address]- 2279 Mar, [facility] [place] [facility] [address] [id number] [place] [address]- 7239 Mar, [facility] [place] [facility] [address] [id number] [place] [address]- 0746 Mar, [facility] [place] [facility] [address] [id number] [place] [address]- 2365 Mar, [facility] [place] [facility] [address] [id number] [place] [address]- 3027 Mar, [facility] [place] [facility] [address] [id number] [place] [address]- 8775 Mar, [facility] [place] [facility] [address] [id number] [place] [address]- 5922 Mar, [facility] [place] [facility] [address] [id number] [place] [address]- 2971 Mar, [facility] [place] [facility] [address] [id number] [place] [address]- 4477 Mar, [facility] [place] [facility] [address] [id number] [place] [address]- 7191 Mar, [facility] [place] [facility] [address] [id number] [place] [address]- 5700 Mar, [facility] [place] [facility] [address] [id number] [place] [address]- 6854 Mar, [facility] [place] [facility] [address] [id number] [place] [address]- 7144 Mar, [facility] [place] [facility] [address] [id number] [place] [address]- 9290 Mar, [facility] [place] [facility] [address] [id number], [place] [address]- 1826 Mar, [facility] [place] [facility] [address] [id number], [place] [address]- 9340 Mar, [facility] [place] [facility] [address] [id number], [place] [address]- 0057 Jan, 2013 [facility] [place] [facility] [address] [id number] [place] [address]- 8167 Jan, [facility] [place] [facility] [address] [id number] [address]- 8318 Jan, 2013 [facility] [place] [facility] [address] [id number] 8153 Jan, 2013 [facility] [place] [facility] [address] [id number], [place] [address]- 0817 05 Sep, 2013 [facility] [address] [id number] [place] [address]- 1576 05 Sep, 2013 [facility] [address] [id number] [place] [address]- 1726 Jan, 2013 [facility] [address] [id number] [place] [address]- 2876 05 Jan, 2013 [facility] [address] [id number] [place] [address]- 3115 03 Jan, 2013 [facility] [address] [id number] [place] [address]- 9424 Jan, 2013 [facility] [address] [id number] [place] [address]- 3882 Jan, 2013 [facility] [address] [id number] [place] [address]- 2360 Jan, 2013 [facility] [address] [id number] [place] [address]- 8278 Jan, 2013 [facility] [address] [id number] [place] [address]- 5206 Dec, [facility] [address] [id number] [place] [address]- 6271 Dec, [facility] [address] [id number], [place] [address]- 2990 Dec, [facility] [address] [id number], [place] [address]- 3958 Dec, [facility] [address] [id number], [place] [address]- 7291 Dec, [facility] [address] [id number], [place] [address]- 9962 Dec, [facility] [address] [place] [id number] Dec [facility] [place] [id number] Dec [facility] [place] [facility] [address] [id number] [place] [address]- 4197 Dec, [facility] [place] [facility] [address] [id number] [place] [address]- 3355 Dec, [facility] [place] [facility] [address] [id number] [place] [address]- 9981 Dec, [facility] [place] [facility] [address] [id number] [place] [address]- 2237 Dec, [facility] [place] [facility] [address] [id number] [place] [address]- 2646 Nov, [facility] [place] [facility] [address] [id number] [place] [address]- 2607 Nov, [facility] [place] [facility] [address] [id number] [place] [address]- 3660 Nov, [facility] [place] [facility] [address] [id number] [place] [address]- 0153 Nov, [facility] [place] [facility] [address] [id number] [place] [address]- 3798 Nov, [facility] [place] [facility] [address] [id number] [place] [address]- 8723 Nov, [facility] [place] [facility] [address] [id number] [place] [address]- 5353 Nov, [facility] [place] [facility] [address] [id number] [place] [address]- 1044 Nov, [facility] [place] [facility] [address] [id number] [place] [address]- 7402 Nov, [facility] [place] [facility] [address] [id number] [place] [address]- 9718 Nov, [facility] [place] [facility] [address] [id number] [place] [address]- 7014 Nov, [facility] [place] [facility] [address] [id number] [place] [address]- 6069 Nov, [facility] [place] [facility] [address] [id number] [place] [address]- 9473 Nov, [facility] [place] [facility] [address] [id number] [place] [address]- 1480 Oct, [facility] [place] [facility] [address] [id number] [place] [address]- 8417 Oct, [facility] [place] [facility] [address] [id number] [place] [address]- 8374 Oct, [facility] [place] [facility] [address] [id number] [place] [address]- 9673 Oct, [facility] [place] [facility] [address] [id number] [place] [address]- 0625 Oct, [facility] [place] [facility] [address] [id number] [place] [address]- 4441 Oct, [facility] [place] [facility] [address] [id number] [place] [address]- 6451 Oct, [facility] [place] [facility] [address] [id number] [place] [address]- 4835 Oct, [facility] [place] [facility] [address] [id number] [place] [address]- 4253 Oct, [facility] [place] [facility] [address] [id number] [place] [address]- 6218 Oct, [facility] [place] [facility] [address] [id number] [place] [address]- 5510 Oct, [facility] [place] [facility] [address] [id number] [place] [address]- 9065 Oct, [facility] [place] [facility] [address] [id number] [place] [address]- 9608 September, [facility] [place] [facility] [address] [id number] [place] [address]- 8063 September, [facility] [place] [facility] [address] [id number] [place] [address]- 5072 September, [facility] [place] [facility] [address] [id number] [place] [address]- 4814 September, [facility] [place] [facility] [address] [id number] [place] [address] Aug, [facility] [place] [facility] [address] [id number] [place] [address] Aug, [facility] [place] [facility] [address] [id number] [place] [address] Aug, [facility] [place] [facility] [address] [id number] [place] [address] Aug, [facility] [place] [facility] [address] [id number] [place] [address] Aug, [facility] [place] [facility] [address] [id number] [place] [address] Aug, [facility] [place] [facility] [address] [id number] [place] [address] Aug, [facility] [place] [facility] [address] [id number] [place] [address] Jul, [facility] [place] [facility] [address] [id number] [place] [address] Jul, [facility] [place] [facility] [address] [id number] [place] [address] Jul, [facility] [place] [facility] [address] [id number] [place] [address] Jul, [facility] [place] [facility] [address] [id number] [place] [address] Jul, [facility] [place] [facility] [address] [id number] [place] [address] Jul, [facility] [place] [facility] [address] [id number] [place] [address] Jul, [facility] [place] [facility] [address] [id number] [place] [address] Jul, [facility] [place] [facility] [address] [id number] [place] [address] 18 Jul, 2013 [facility] [place] [facility] [address] [id number] [place] [address] 18 Jul, 2013 [facility] [place] [facility] [address] [id number] [place] [address] 18 Jul, 2013 [facility] [place] [facility] [address] [id number] [place] [address]- [address] 18 Jul, 2013 [facility] [place] [facility] [address] [id number] [place] [address]- [address] 14 Jul, 2013 [facility] [place] [facility] [address] [facility] [id number] [place] [address] 14 Jul, 2013 [facility] [place] [facility] [address] [id number] [place] [address] Jul, [facility] [place] [facility] [address] [facility] [id number] [place] [address] Jul, [facility] [place] [facility] [address] [facility] [id number] [place] [address] Jul, [facility] [place] [facility] [address] [facility] [id number] [place] [address] Jul, [facility] [place] [facility] [address] [id number] [place] [address] Jun, [facility] [place] [facility] [address] [id number] [place] [address] Jun, [facility] [place] [facility] [address] [facility] [id number] [place] [address] Jun, [facility] [place] [facility] [address] [facility] [id number] [place] [address]- [address] Jun, [facility] [address] [id number] [place] [address] 14 Jun, 2013 [facility] [place] [facility] [address] [id number] [place] [address] 14 Jun, 2013 [facility] [place] [facility] [address] [id number] [place] [address]- [address] 14 Jun, 2013 [facility] [place] [facility] [address] [id number] [place] [address]- [address] 14 Jun, 2013 [facility] [place] [facility] [address] [id number] [place] [address]- [address] 14 Jun, 2013 [facility] [place] [facility] [address] [id number] [place] [address] 14 Jun, 2013 [facility] [place] [facility] [address] [id number] [place] [address] 27 May, 2013 [facility] [place] [facility] [address] [id number] [place] [address] 27 May, 2013 [facility] [place] [facility] [address] [id number] [place] [address] 26 May, 2013 [facility] [place] [facility] [address] [id number] [place] [address]- [address] 19 May, 2013 [facility] [place] [facility] [address] [id number] [place] [address]- [address] 19 May, 2013 [facility] [place] [facility] [address] [id number] [address] 16 May, 2013 [facility] [place] [facility] [address] [id number] [place] [place] [address] 16 May, 2013 [facility] [place] [facility] [address] [id number] [place] [address]28 16 May, 2013 [facility] [place] [facility] [address] [id number] [place] [address]- 4864 16 May, 2013 [facility] [place] [facility] [address] [id number] [place] [address]- 8629 13 May, 2013 [facility] [address] [id number] [place] [address]- 0545 13 May, 2013 [facility] [place] [facility] [address] [id number] [place] [address]- 1130 11 May, 2013 [facility] [place] [facility] [address] [id number] [place] [address]- 7113 20 Apr, 2013 [facility] [place] [facility] [address] [id number] [place] [address]- 2771 18 Apr, 2013 [facility] [place] [facility] [address] [id number] [place] [address]- 6629 18 Apr, 2013 [facility] [place] [facility] [address] [id number] [place] [address]- 1754 13 Apr, 2013 [facility] [place] [facility] [address] [id number] [place] [address]- 1792 Apr, [facility] [place] [facility] [address] [id number] [place] [address]- 6745 08 Apr, 2013 [facility] [place] [facility] [address] [id number] [place] [address]- 0522 08 Apr, 2013 [facility] [place] [facility] [address] [facility] [id number] [place] [address]- 1409 Apr, [facility] [place] [facility] [address] [id number] [place] [address]- 5143 07 Apr, 2013 [facility] [place] [facility] [address] [id number] [address] 6[address] Apr, [facility] [place] [facility] [address] [id number], [place] [address] Apr, [facility] [place] [facility] [address] [facility] [id number], [place] [address] 4364 Mar, [facility] [place] [facility] [address] [facility] [id number], [place] [address]- 2654 Mar, [facility] [place] [facility] [address] [id number] [place] [address]- 2420 Mar, [facility] [place] [facility] [address] [id number] [place] [address]- 6615 Mar, [facility] [place] [facility] [address] [id number] [place] [address]- 0707 Mar, [facility] [place] [facility] [address] [id number] [place] [address]- 8638 Mar, [facility] [place] [facility] [address] [id number] [place] [address]- 1419 Mar, [facility] [place] [facility] [address] [id number] [place] [address]- 4699 Mar, [facility] [place] [facility] [address] [id number] [place] [address]- 2912 Mar, [facility] [place] [facility] [address] [id number] [place] [address]- 0875 Mar, [facility] [place] [facility] [address] [id number] [place] [address]- 6412 15 Mar, 2013 [facility] [place] [facility] [address] [id number] [place] [address]- 5912 Mar, [facility] [place] [facility] [address] [id number] [place] [address]- 9338 30 Jan, 2013 [facility] [place] [facility] [address] [id number] [place] [address]- 0628 25 Jan, 2013 [facility] [place] [facility] [address] [id number] [place] [address]- 4875 20 Jan, 2013 [facility] [place] [facility] [address] [id number] [place] [address]- 2543 10 Jan, 2013 [facility] [place] [facility] [address] [id number] [place] [address]- 254 27 Dec, 2012 [facility] [place] [facility] [address] [id number] [place] [address]- 8045 Dec, [facility] [place] [facility] [address] [id number] [place] [address]- 4449 Dec, [facility] [place] [facility] [address] [id number] [place] [address]- 2165 Dec, [facility] [place] [facility] [address] [id number] [place] [address]- 3125 Dec, [facility] [place] [facility] [address] [id number] [place] [address]- 1314 Dec, [facility] [place] [facility] [address] [id number] [place] [address]- 2875 Dec, [facility] [place] [facility] [address] [id number] [place] [address]- 2041 Dec, [facility] [place] [facility] [address] [id number] [place] [address]- 7952 Dec, [facility] [place] [facility] [address] [id number] [place] [address]- 4352 Nov, [facility] [place] [facility] [address] [id number] [place] [address]- 0470 Nov, [facility] [place] [facility] [address] [id number] [place] [address]- 5829 Nov, [facility] [place] [facility] [address] [id number] [place] [address]- 6034 Nov, [facility] [place] [facility] [address] [id number] [place] [address]- 1304 Nov, [facility] [place] [facility] [address] [id number] [place] [address]- 9733 Nov, [facility] [place] [facility] [address] [id number] [place] [address]- 6516 Nov, [facility] [place] [facility] [address] [id number] [place] [address]- 8950 Nov, [facility] [place] [facility] [address] [id number] [place] [address]- 0313 27 Oct, 2012 [facility] [address] [id number] [place] [address]- 4800 Oct, [facility] [address] [id number] [place] [address]- 3284 Oct, [facility] [address] [id number] [place] [address]- 0674 Oct, [facility] [address] [id number] [place] [address]- 5305 Oct, [facility] [address] [id number] [place] [address]- 4934 Oct, [facility] [address] [id number] [place] [address]- 7554 Oct, [facility] [address] [id number] [place] [address]- 0398 Oct, [facility] [address] [id number] [place] [address]- 8874 19 Oct, 2012 [facility] [address] [id number] [place] [address]- 8700 18 Oct, 2012 [facility] [address] [id number] [place] [address]- 2838 17 Oct, 2012 [facility] [address] [id number] [place] [address]- 7540 14 Oct, 2012 [facility] [address] [id number] [place] [address]- 2887 07 Oct, 2012 [facility] [place] [facility] [address] [id number] [place] [address]- 8466 September, [facility] [place] [facility] [address] [id number] [place] [address]- 3199 September, [facility] [address] [id number] [place] [address]- 5914 September, [facility] [place] [facility] [address] [id number] [place] [address]- 3969 Aug, [facility] [address] [id number] [place] [address]- 8405 Aug, [facility] [address] [id number] [place] [address]- 4956 Aug, [facility] [place] [facility] [address] [id number] [place] [address]- 0246 Aug, [facility] [address] [id number] [place] [address]- 0138 Aug, [facility] [address] [id number] [place] [address]- 7174 Aug, [facility] [address] [id number] [place] [address]- 3582 Aug, [facility] [address] [id number] [place] [address]- 9710 Jul, [facility] [address] [id number] [place] [address]- 6805 Jul, [facility] [address] [id number] [place] [address]- 2661 Jul, [facility] [place] [facility] [address] [id number] [place] [address]- 5082 Jul, [facility] [place] [facility] [address] [id number] [place] [address]- 1599 Jul, [facility] [place] [facility] [address] [id number] [place] [address]- 0469 Jul, [facility] [place] [facility] [address] [id number] [place] [address]- 9835 Jul, [facility] [place] [facility] [address] [id number] [place] [address]- 7446 Jul, [facility] [place] [facility] [address] [id number] [place] [address]- 9165 20 Jul, 2012 [facility] [address] [id number] [place] [address]- 2046 Jul, [facility] [address] [id number] [place] [address]- 6976 Jul, [facility] [address] [id number] [place] [address]- 4126 Jul, [facility] [address] [id number] [place] [address] 2548 Jul, [facility] [address] [id number] [place] [address]- 6131 24 Jun, 2012 [facility] [address] [id number] [place] [address]- 4533 Jun, [facility] [address] [id number] [place] [address]- 6826 Jun, [facility] [address] [id number] [place] [address]- 2980 17 Jun, 2012 [facility] [address] [id number] [place] [address]- 0256 15 Jun, 2012 [facility] [address] [id number] [place] [address]- 1410 14 Jun, 2012 [facility] [address] [id number] [place] [address]- 6427 Jun, [facility] [address] [id number] [place] [address]- 6656 May, [facility] [address] [id number] [place] [address]- 7699 May, [facility] [address] [id number] [place] [address]- 3560 May, [facility] [address] [id number] [place] [address]- 1440 May, [facility] [place] [facility] [address] [id number] [place] [address]- 4779 May, [facility] [place] [facility] [address] [id number] [place] [address]- 2398 May, [facility] [place] [facility] [address] [id number] [place] [address]- 0793 May, [facility] [place] [facility] [address] [id number] [place] [address]- 1796 May, [facility] [place] [facility] [address] [id number] [place] [address]- 2169 May, [facility] [place] [facility] [address] [id number] [place] [address]- 6429 May, [facility] [place] [facility] [address] [id number] [place] [address]- 3604 Apr, [facility] [place] [facility] [address] [id number] [place] [address]- 1927 Apr, [facility] [place] [facility] [address] [id number] [place] [address]- 2911 Apr, [facility] [place] [facility] [address] [id number] [place] [address]- 0765 Apr, [facility] [place] [facility] [address] [id number] [place] [address]- 6118 Apr, [facility] [place] [facility] [address] [id number] [address]- 9885 Apr, [facility] [place] [facility] [address] [id number] [place] [address]- 2647 Apr, [facility] [place] [facility] [address] [id number] [place] [address]- 7163 Apr, [facility] [place] [facility] [address] [id number] [place] [address]- 2644 Apr, [facility] [place] [facility] [address] [id number], [place] [address]- 2630 Apr, [facility] [place] [facility] [address] [id number] [place] [address]- 0175 Apr, [facility] [place] [facility] [address] [id number] [place] [address]- 2064 Apr, [facility] [place] [facility] [address] [id number] [place] [address]- 5579 Mar, [facility] [place] [facility] [address] [id number] [place] [address]- 3737 Mar, 2011 [facility] [place] [facility] [address] [id number] [place] [address]- 9722 Mar, [facility] [place] [facility] [address] [id number] [place] [address]- 6741 Mar, [facility] [place] [facility] [address] [id number], [place] [address]- 4761 Mar, [facility] [place] [facility] [address] [id number] [place] [address]- 1617 Mar, [facility] [place] [facility] [address] [id number], [place] [address]- 2620 Mar, [facility] [place] [facility] [address] [id number], [place] [address]- 9464 Mar, [facility] [place] [facility] [address] [id number], [place] [address]- 3897 Mar, [facility] [place] [facility] [address] [id number], [place] [address]- 6685 Mar, [facility] [place] [facility] [address] [id number], [place] [address]- 9734 Mar, [facility] [place] [facility] [address] [id number], [place] [address]- 7017 Mar, [facility] [place] [facility] [address] [facility] [id number], [place] [address]- 9593 Mar, [facility] [place] [facility] [address] [id number] [place] [address]- 6512 12 Mar, 2012 [facility] [place] [facility] [address] [id number] [place] [address]- 3908 03 Mar, 2012 [facility] [place] [facility] [address] [id number] [place] [address]- 1886 Mar, [facility] [place] [facility] [address] [id number] [place] [address]- 0626 25 Jan, 2012 [facility] [place] [facility] [address] [id number] [place] [address]- 7204 24 Jan, 2012 [facility] [place] [facility] [address] [id number] [place] [address]- 4884 22 Jan, 2012 [facility] [place] [facility] [address] [id number] [place] [address]- 9113 22 Jan, 2012 [facility] [place] [facility] [address] [id number] [place] [address]- 1497 21 Jan, 2012 [facility] [place] [facility] [address] [id number] [place] [address]- 5483 18 Jan, 2012 [facility] [place] [facility] [address] [id number] [place] [address]- 2554 14 Jan, 2012 [facility] [place] [facility] [address] [id number] [place] [address]- 4469 07 Jan, 2012 [facility] [place] [facility] [address] [id number] [place] [address]- 9635 15 Dec, 2011 [facility] [place] [facility] [address] [id number] [place] [address]- 5716 10 Dec, 2011 [facility] [place] [facility] [address] [id number] [place] [address]- 6959 09 Dec, 2011 [facility] [place] [facility] [address] [id number] [place] [address]- 2546 08 Dec, 2011 [facility] [place] [facility] [address] [id number] [place] [address]- 4551 Dec, [facility] [place] [facility] [address] [id number] [place] [address]- 8114 Dec, [facility] [place] [facility] [address] [id number] [place] [address]- 7128 Dec, [facility] [place] [facility] [address] [id number] [place] [address]- 8363 Nov, [facility] [place] [facility] [address] [id number] [place] [address]- 0188 Oct, [facility] [place] [facility] [address] [id number] [place] [address]- 4731 Aug, [facility] [place] [facility] [address] [id number] [place] [address]- 2718 Jul, [facility] [place] [facility] [address] [id number] [place] [address]- 3093 Jul, [facility] [place] [facility] [address] [id number] [place] [address]- 3108 16 Jul, 2011 [facility] [place] [facility] [address] [id number] [place] [address]- 2041 14 Jul, 2011 [facility] [place] [facility] [address] [id number] [place] [address]- 6112 Jul, [facility] [place] [facility] [address] [id number] [place] [address]- 8515 Jul, [facility] [place] [facility] [address] [id number] [place] [address]- 4789 Jul, [facility] [place] [facility] [address] [id number] [place] [address]- 5808 15 Jul, 2011 [facility] [place] [facility] [address] [id number] [place] [address]- 3156 13 Jul, 2011 [facility] [place] [facility] [address] [id number] [place] [address]- 9833 Jul, [facility] [place] [facility] [address] [id number] [place] [address]- 7697 02 Jul, 2011 [facility] [address] [id number] [place] [address]- 7459 Jun, [facility] [address] [id number] [place] [address]- 0120 Jun, [facility] [address] [id number] [place] [address]- 8502 Jun, [facility] [address] [id number] [place] [address]- 2970 Jun, [facility] [address] [id number] [place] [address]- 1363 Jun, [facility] [address] [id number] [place] [address]- 0436 Jun, [facility] [address] [id number] [place] [address]- 0129 Jun, [facility] [address] [id number] [place] [address]- 1373 May, [facility] [address] [id number] [place] [address]- 3025 May, [facility] [address] [id number] [place] [address]- 9617 May, [facility] [address] [id number] [place] [address]- 1153 14 May, 2011 [facility] [address] [id number] [place] [address]- 7608 14 May, 2011 [facility] [address] [id number] [place] [address]- 9166 May, [facility] [address] [id number] [place] [address]- 8562 May, [facility] [address] [id number] [place] [address]- 3709 May, [facility] [address] [id number] [address]- 7846 May, [facility] [address] [facility] [id number], [place] [address]- 1906 May, [facility] [address] [facility] [id number], [place] [address]- 6313 Apr, [facility] [address] [facility] [id number], [place] [address]- 6386 Apr, [facility] [address] [facility] [id number], [place] [address]- 1878 Apr, [facility] [address] [facility] [id number], [place] [address]- 0476 Apr, [facility] [id number], [place] [address]- 3548 Mar, [facility] [id number], [place] [address]- 9116 Mar, [facility] [address] [id number], [place] [address]- 3931 Mar, [facility] [address] [id number], [place] [address]- 0842 Mar, IMMUNIZATIONS No Known Immunizations SOCIAL HISTORY [...]
--- OUTSIDE RECORDS SUMMARY | 2017-12-29 16:52 | XMS REPORT ---
Author Author SABIHA MAST [facility] Address [address] [place] [address] Care Team Providers Care [employer] Hcm Developer Name Role Phone SABIHA MAST Unavailable PROBLEMS Type Condition ICD9-CM Code PVL21-CW Code Onset Dates Condition Status SNOMED Code Problem FRANCIS (generalized anxiety disorder) F41.1 Active 33917862 Problem Conversion disorder (or hysterical neurosis, conversion type) F44.9 Active 51771157 Problem Thoracic disc herniation M51.24 Active 147952089 Problem Major depressive disorder in partial remission F32.4 Active 09151596 Problem Restless leg syndrome G25.81 Active 37510628 Problem Mild episode of recurrent major depressive disorder F33.0 Active 506690768 Problem Paroxysmal tachycardia I47.9 Active 77756628 Problem Seizure disorder G40.909 Active 467065096 Problem Constipation, unspecified constipation type K59.00 Active 62367300 Problem Slow transit constipation K59.01 Active 02100418 ALLERGIES No Information ENCOUNTERS Encounter Location Date Diagnosis [facility] [id number] [place] [address] 31384- 5328 Dec, [facility] [id number] [place] [address] 46588- 2552 Nov, [facility] [id number] [place] [address] 35768- 2168 Nov, [facility] [id number] [place] [address] 13533- 5863 September, [facility] [id number] [place] [address] 30307- 8567 September, [facility] [id number] [place] [address] 89934- 9461 September, Major depressive disorder in partial remission F32.4 ; FRANCIS ( generalized anxiety disorder) F41.1 and Restless leg syndrome G25.81 [facility] [id number] [place] [address] 36020- 1759 September, [facility] [id number] [place] [address] 94786- 5382 Jul, [facility] [id number] [place] [address] 65951- 5734 Jul, Dorsalgia, unspecified M54.9 [facility] [id number] [place] [address] 69838- 2453 Jul, Mild episode of recurrent major depressive disorder F33.0 and FRANCIS (generalized anxiety disorder) F41.1 [facility] [id number] [place] [address] 40956- 0713 May, [facility] [id number] [place] [address] 49153 -4333 May, Dysuria R30.0 and Acute cystitis with hematuria N30.01 [facility] [id number] [place] [address] 09362- 2969 Apr, [facility] [id number] [place] [address] 68070- 9613 Apr, Major depressive disorder in partial remission F32.4 and FRANCIS (generalized anxiety disorder) F41.1 [facility] [id number] [place] [address] 65169- 0882 Mar, Paroxysmal tachycardia I47.9 [facility] [id number] [place] [address] 03899- 3222 Mar, Paroxysmal tachycardia I47.9 and Pain of left lower extremity M79.605 [facility] [id number] [place] [address] 96151- 7977 Mar, FRANCIS (generalized anxiety disorder) F41.1 and Major depressive disorder in partial remission F32.4 [facility] [id number] [place] [address] 15385- 3150 Jan, [facility] [address] [address] 1754 14 Jan, 2017 [facility] [id number] [place] [address] 20371- 6499 Jan, [facility] [id number] [place] [address] 92212 -5125 Dec, Constipation, unspecified constipation type K59.00 [facility] [id number] [place] [address] 55209- 8873 Dec, [facility] [id number] [place] [address] 16511- 7210 Nov, [facility] [id number] [place] [address] 04679- 1261 Nov, Major depressive disorder in partial remission F32.4 and FRANCIS (generalized anxiety disorder) F41.1 [facility] [id number] [place] [address] 84697 -6347 Oct, Abdominal pain R10.9 and Slow transit constipation K59.01 [facility] [id number] [place] [address] 56656- 4734 Aug, Major depressive disorder in partial remission F32.4 ; FRANCIS ( generalized anxiety disorder) F41.1 ; Conversion disorder (or hysterical neurosis, conversion type) F44.9 ; Dorsalgia, unspecified M54.9 and Long-term use of high-risk medication Z79.899 [facility] [id number] [place] [address] 63917- 2601 Aug, [facility] [id number] [place] [address] 33701- 1594 15 Jul, 2016 Paroxysmal tachycardia I47.9 [facility] [address] [address]- 7085 10 Jul, 2016 Paroxysmal tachycardia I47.9 [facility] [id number] [place] [address]- 2476 Jun, [facility] [id number] [place] [address] 00391- 9010 Jun, Major depressive disorder in partial remission F32.4 ; FRANCIS ( generalized anxiety disorder) F41.1 and Conversion disorder (or hysterical neurosis, conversion type) F44.9 [facility] [id number] [place] [address] 41682 -5690 May, Pelvic pain R10.2 [facility] [id number] [place] [address] 18407 -8342 Apr, Gastroenteritis K52.9 [facility] [address] [address] -4534 Apr, Blood in urine R31.9 and Acute cystitis with hematuria N30.01 [facility] [address] 69090- 3240 Apr, Major depressive disorder in partial remission F32.4 ; FRANCIS ( generalized anxiety disorder) F41.1 and Conversion disorder (or hysterical neurosis, conversion type) F44.9 [facility] [id number] [place] [address] 90526- 2250 Apr, [facility] [id number] [place] [address] 78903- 7459 Apr, Abnormal mammogram R92.8 [facility] [id number] [place] [address] 98047- 6767 Mar, [facility] [id number] [place] [address] 17157- 4031 Mar, Gastroenteritis K52.9 and Seizure disorder G40.909 [facility] [id number] [place] [address] 95818- 1109 Dec, [facility] [id number] [place] [address] 42123 -2063 Dec, Other headache syndrome G44.89 [facility] [address] [address]- 0946 Dec, [facility] [id number] [place] [address] 02184- 1476 Dec, Thoracic disc herniation M51.24 [facility] [id number] [place] [address] 81335- 0866 Dec, [facility] [id number] [place] [address] 09339- 7878 Nov, Major depressive disorder in partial remission F32.4 and FRANCIS (generalized anxiety disorder) F41.1 [facility] [id number] [place] [address] 57796- 3266 Nov, [facility] [id number] [place] [address] 09067- 8610 Nov, Dorsalgia, unspecified M54.9 [facility] [id number] [place] [address] 05425- 9060 Oct, [facility] [id number] [place] [address] 93430- 9185 September, [facility] [id number] [place] [address] 83022- 4177 Aug, [facility] [id number] [place] [address] 60249- 0725 Aug, Major depressive disorder in partial remission F32.4 and FRANCIS (generalized anxiety disorder) F41.1 [facility] [address] [address]- 8736 Aug, [facility] [id number] [place] [address] 48975- 2756 Jul, Abnormal mammogram R92.8 [facility] [id number] [address]- 9757 Jul, [facility] [address] [address]- 7001 15 Jul, 2015 [facility] [address] [address]- 3453 14 Jul, 2015 [facility] [address] [address]- 2230 Jul, [facility] [address] [address]- 3964 Jul, [facility] [id number] [place] [address] 28854- 7509 Jul, [facility] [id number] [place] [address] 641968- 4350 Jun, Major depressive disorder in partial remission F32.4 and FRANCIS (generalized anxiety disorder) F41.1 [facility] [id number] [place] [address] 25190- 6903 Jun, [facility] [id number] [address]- 8841 May, [facility] [address] [address]- 6822 Apr, [facility] [address] [address]- 6729 Mar, Major depressive disorder, recurrent episode, moderate F33.1 ; PTSD (post-traumatic stress disorder) F43.10 and FRANCIS (generalized anxiety disorder) F41.1 [facility] [id number] [address]- 4981 Mar, [facility] [id number]- 4480 Mar, [facility] [id number] 7748 Mar, [facility] [address] [address]- 1419 Mar, [facility] [id number] [address]- 9900 23 Jan, 2015 [facility] [address] [address]- 1553 15 Jan, 2015 [facility] [id number] [address]- 6496 15 Jan, 2015 [facility] [id number] [place] [address] 52155- 4554 14 Jan, 2015 Thoracic disc herniation 722.11 [facility] [id number] [address]- 7053 Dec, [facility] [id number] [place] [address] 91567- 2836 Dec, [facility] [id number] [address]- 8712 Dec, [facility] [id number] [place] [address] 02854- 9440 Nov, [facility] [address] [address]- 5666 Nov, Generalized anxiety disorder 300.02 ; Posttraumatic stress disorder 309.81 and Major depressive disorder, recurrent episode, moderate 296.32 [facility] [address] [address]- 1915 Nov, [facility] [id number] [address]- 3345 Nov, [facility] [address] [address]- 6402 Oct, [facility] [id number] 0669 Oct, [facility] [id number] 9680 Oct, [facility] [id number] [address]- 2470 September, [facility] [place] [facility] [address] [id number] [place] [address]- 2673 September, [facility] [place] [facility] [address] [id number] [place] [address]- 2729 Aug, [facility] [place] [facility] [address] [id number] [place] [address]- 1537 Aug, [facility] [place] [facility] [address] [id number] [place] [address]- 1232 Jul, [facility] [place] [facility] [address] [id number] [place] [address]- 7826 Jul, [facility] [place] [facility] [address] [id number] [place] [address]- 5605 Jul, [facility] [place] [facility] [address] [id number] [place] [address]- 6062 Jul, [facility] [place] [facility] [address] [id number] [place] [address]- 5143 Jul, [facility] [place] [facility] [address] [id number] [place] [address]- 9842 Jul, [facility] [place] [facility] [address] [id number] [place] [address]- 8904 Jul, [facility] [place] [facility] [address] [id number] [place] [address]- 7509 Jul, [facility] [place] [facility] [address] [id number] [place] [address]- 0999 Jul, [facility] [place] [facility] [address] [id number] [place] [address]- 9344 Jul, [facility] [place] [facility] [address] [id number] [place] 1113 Jun, [facility] [place] [facility] [address] [id number] [place] [address]- 1436 Jun, [facility] [place] [facility] [address] [id number] [place] [address]- 9324 Jun, [facility] [place] [facility] [address] [id number] [place] [address]- 2988 May, [facility] [place] [facility] [address] [id number] [place] [address]- 1628 Apr, [facility] [place] [facility] [address] [id number] [place] [address]- 2446 Apr, [facility] [place] [facility] [address] [id number] [place] [address]- 2710 Apr, [facility] [place] [facility] [address] [id number] [place] [address]- 6930 Apr, [facility] [place] [facility] [address] [id number] [place] [address]- 6770 Apr, [facility] [place] [facility] [address] [id number] [place] [address]- 4360 Apr, [facility] [place] [facility] [address] [id number] [place] [address]- 7637 Apr, [facility] [place] [facility] [address] [id number] [place] [address]- 2794 Apr, [facility] [place] [facility] [address] [id number] [place] [address]- 0092 Mar, [facility] [place] [facility] [address] [id number] [place] [address]- 8305 Mar, [facility] [place] [facility] [address] [id number] [place] [address]- 5377 Mar, [facility] [place] [facility] [address] [id number] [place] [address]- 0996 Mar, [facility] [place] [facility] [address] [id number] [place] [address]- 6416 Mar, [facility] [place] [facility] [address] [id number] [place] [address]- 0710 Mar, [facility] [place] [facility] [address] [id number] [place] [address]- 5543 Mar, [facility] [place] [facility] [address] [id number] [place] [address]- 7429 Mar, [facility] [place] [facility] [address] [id number] [place] [address]- 2045 Mar, [facility] [place] [facility] [address] [id number] [place] [address]- 3303 Mar, [facility] [place] [facility] [address] [id number] [place] [address]- 6449 Mar, [facility] [place] [facility] [address] [id number] [place] [address]- 8509 Mar, [facility] [place] [facility] [address] [id number] [place] [address]- 9076 Mar, [facility] [place] [facility] [address] [id number] [place] [address]- 6609 Mar, [facility] [place] [facility] [address] [id number] [place] [address]- 7985 Mar, [facility] [place] [facility] [address] [id number] [place] [address]- 7020 Mar, [facility] [place] [facility] [address] [id number] [place] [address]- 8489 Mar, [facility] [place] [facility] [address] [id number] [place] [address]- 4892 Jan, 2013 [facility] [place] [facility] [address] [id number] [place] [address]- 7740 Jan, [facility] [place] [facility] [address] [id number] [place] [address]- 8862 Jan, 2013 [facility] [place] [facility] [address] [id number] [place] 0488 Jan, 2013 [facility] [place] [facility] [address] [id number] [place] [address]- 8813 05 Sep, 2013 [facility] [address] [id number] [place] [address]- 6376 05 Sep, 2013 [facility] [address] [id number] [place] [address]- 6266 Jan, 2013 [facility] [address] [id number] [place] [address]- 0406 05 Jan, 2013 [facility] [address] [id number] [place] [address]- 4613 03 Jan, 2013 [facility] [address] [id number] [place] [address]- 5313 Jan, 2013 [facility] [address] [id number] [place] [address]- 0505 Jan, 2013 [facility] [address] [id number] [place] [address]- 2933 Jan, 2013 [facility] [address] [id number] [place] [address]- 0300 Jan, 2013 [facility] [address] [id number] [place] [address]- 7808 Dec, [facility] [address] [id number] [place] [address]- 4619 Dec, [facility] [address] [id number] [place] [address]- 4342 Dec, [facility] [address] [id number] [place] [address]- 7702 Dec, [facility] [address] [id number] [place] [address]- 0864 Dec, [facility] [address] [id number] [place] [address]- 5792 Dec, [facility] [place] [id number] Dec [facility] [place] [id number] Dec [facility] [place] [facility] [address] [id number] [place] [address]- 1245 Dec, [facility] [place] [facility] [address] [id number] [place] [address]- 2213 Dec, [facility] [place] [facility] [address] [id number] [place] [address]- 6333 Dec, [facility] [place] [facility] [address] [id number] [place] [address]- 6228 Dec, [facility] [place] [facility] [address] [id number] [place] [address]- 9018 Nov, [facility] [place] [facility] [address] [id number] [place] [address]- 6023 Nov, [facility] [place] [facility] [address] [id number] [place] [address]- 9186 Nov, [facility] [place] [facility] [address] [id number] [place] [address]- 5584 Nov, [facility] [place] [facility] [address] [id number] [place] [address]- 6818 Nov, [facility] [place] [facility] [address] [id number] [place] [address]- 2849 Nov, [facility] [place] [facility] [address] [id number] [place] [address]- 6665 Nov, [facility] [place] [facility] [address] [id number] [place] [address]- 9755 Nov, [facility] [place] [facility] [address] [id number] [place] [address]- 1832 Nov, [facility] [place] [facility] [address] [id number] [place] [address]- 4961 Nov, [facility] [place] [facility] [address] [id number] [place] [address]- 3099 Nov, [facility] [place] [facility] [address] [id number] [place] [address]- 9126 Nov, [facility] [place] [facility] [address] [id number] [place] [address]- 6912 Nov, [facility] [place] [facility] [address] [id number] [place] [address]- 1126 Oct, [facility] [place] [facility] [address] [id number] [place] [address]- 6185 Oct, [facility] [place] [facility] [address] [id number] [place] [address]- 5827 Oct, [facility] [place] [facility] [address] [id number] [place] [address]- 3614 Oct, [facility] [place] [facility] [address] [id number] [place] [address]- 9041 Oct, [facility] [place] [facility] [address] [id number] [place] [address]- 2146 Oct, [facility] [place] [facility] [address] [id number] [place] [address]- 0172 Oct, [facility] [place] [facility] [address] [id number] [place] [address]- 6917 Oct, [facility] [place] [facility] [address] [id number] [place] [address]- 8424 Oct, [facility] [place] [facility] [address] [id number] [place] [address]- 3321 Oct, [facility] [place] [facility] [address] [id number] [place] [address]- 0961 Oct, [facility] [place] [facility] [address] [id number] [place] [address] Oct, [facility] [place] [facility] [address] [id number] [place] [address] September, [facility] [place] [facility] [address] [id number] [place] [address] September, [facility] [place] [facility] [address] [id number] [place] [address] September, [facility] [place] [facility] [address] [id number] [place] [address] September, [facility] [place] [facility] [address] [id number] [place] [address] Aug, [facility] [place] [facility] [address] [id number] [place] [address] Aug, [facility] [place] [facility] [address] [id number] [place] [address] Aug, [facility] [place] [facility] [address] [id number] [place] [address] Aug, [facility] [place] [facility] [address] [id number] [place] [address] Aug, [facility] [place] [facility] [address] [id number] [place] [address] Aug, [facility] [place] [facility] [address] [id number] [place] [address] Aug, [facility] [place] [facility] [address] [id number] [place] [address] Jul, [facility] [place] [facility] [address] [id number] [place] [address] Jul, [facility] [place] [facility] [address] [id number] [place] [address] Jul, [facility] [place] [facility] [address] [id number] [place] [address] Jul, [facility] [place] [facility] [address] [id number] [place] [address] Jul, [facility] [place] [facility] [address] [id number] [place] Jul, [facility] [place] [facility] [address] [id number] [place] [address] Jul, [facility] [place] [facility] [address] [id number] [place] [address] Jul, [facility] [place] [facility] [address] [id number] [place] [address] 18 Jul, 2013 [facility] [place] [facility] [address] [id number] [place] [address] 18 Jul, 2013 [facility] [place] [facility] [address] [id number] [place] [address] 18 Jul, 2013 [facility] [place] [facility] [address] [id number] [place] [address] 18 Jul, 2013 [facility] [place] [facility] [address] [id number] [place] [address]- [address] 14 Jul, 2013 [facility] [place] [facility] [address] [facility] [id number] [place] [address] 14 Jul, 2013 [facility] [place] [facility] [address] [id number] [place] [address] Jul, [facility] [place] [facility] [address] [facility] [id number] [place] [address] Jul, [facility] [place] [facility] [address] [facility] [id number] [place] [address] Jul, [facility] [place] [facility] [address] [facility] [id number] [place] [address] Jul, [facility] [place] [facility] [address] [id number] [place] [address] Jun, [facility] [place] [facility] [address] [id number] [place] [address] Jun, [facility] [place] [facility] [address] [facility] [id number] [place] [address] Jun, [facility] [place] [facility] [address] [facility] [id number] [place] [address] Jun, [facility] [address] [id number] [place] [address] 14 Jun, 2013 [facility] [place] [facility] [address] [id number] [place] [address] 14 Jun, 2013 [facility] [place] [facility] [address] [id number] [place] [address] 14 Jun, 2013 [facility] [place] [facility] [address] [id number] [place] [address] 14 Jun, 2013 [facility] [place] [facility] [address] [id number] [place] [address]- [address] 14 Jun, 2013 [facility] [place] [facility] [address] [id number] [place] [address]- [address] 14 Jun, 2013 [facility] [place] [facility] [address] [id number] [place] [address]- [address] 27 May, 2013 [facility] [place] [facility] [address] [id number] [place] [address] 27 May, 2013 [facility] [place] [facility] [address] [id number] [place] [address] 26 May, 2013 [facility] [place] [facility] [address] [id number] [place] [address]- [address] 19 May, 2013 [facility] [place] [facility] [address] [id number] [place] [address] 19 May, 2013 [facility] [place] [facility] [address] [id number] [address] 16 May, 2013 [facility] [place] [facility] [address] [id number] [place] [address] 5630 16 May, 2013 [facility] [place] [facility] [address] [id number] [place] [address] 2929 16 May, 2013 [facility] [place] [facility] [address] [id number] [place] [address] 5772 16 May, 2013 [facility] [place] [facility] [address] [id number] [place] [address]- 4077 13 May, 2013 [facility] [address] [id number] [place] [address]- 8869 13 May, 2013 [facility] [place] [facility] [address] [id number] [place] [address] 9838 11 May, 2013 [facility] [place] [facility] [address] [id number] [place] [address] 9181 20 Apr, 2013 [facility] [place] [facility] [address] [id number] [place] [address]- 8889 18 Apr, 2013 [facility] [place] [facility] [address] [id number] [place] [address]- 4654 18 Apr, 2013 [facility] [place] [facility] [address] [id number] [place] [address]- 2442 13 Apr, 2013 [facility] [place] [facility] [address] [id number] [place] [address]- 9876 Apr, [facility] [place] [facility] [address] [id number] [place] [address]- 5306 08 Apr, 2013 [facility] [place] [facility] [address] [id number] [place] [address]- 2116 08 Apr, 2013 [facility] [place] [facility] [address] [facility] [id number] [place] [address]- 9580 Apr, [facility] [place] [facility] [address] [id number] [place] [address]- 8516 07 Apr, 2013 [facility] [place] [facility] [address] [id number] [place] [address] 238[address] Apr, [facility] [place] [facility] [address] [id number] [place] [address] 9[address] Apr, [facility] [place] [facility] [address] [facility] [id number] [place] [address] Mar, [facility] [place] [facility] [address] [facility] [id number] [place] [address]- 1092 Mar, [facility] [place] [facility] [address] [id number] [place] [address]- 4839 Mar, [facility] [place] [facility] [address] [id number] [place] [address]- 2647 Mar, [facility] [place] [facility] [address] [id number] [place] [address]- 4108 Mar, [facility] [place] [facility] [address] [id number] [place] [address]- 2618 Mar, [facility] [place] [facility] [address] [id number] [place] [address]- 5656 Mar, [facility] [place] [facility] [address] [id number] [place] [address]- 2635 Mar, [facility] [place] [facility] [address] [id number] [place] [address]- 0258 Mar, [facility] [place] [facility] [address] [id number] [place] [address]- 1405 Mar, [facility] [place] [facility] [address] [id number] [place] [address]- 6249 15 Mar, 2013 [facility] [place] [facility] [address] [id number] [place] [address]- 8642 Mar, [facility] [place] [facility] [address] [id number] [place] [address]- 3569 30 Jan, 2013 [facility] [place] [facility] [address] [id number] [place] [address]- 1557 25 Jan, 2013 [facility] [place] [facility] [address] [id number] [place] [address]- 8529 20 Jan, 2013 [facility] [place] [facility] [address] [id number] [place] [address]- 2549 10 Jan, 2013 [facility] [place] [facility] [address] [id number] [place] [address]- 2543 27 Dec, 2012 [facility] [place] [facility] [address] [id number] [place] [address]- 5143 Dec, [facility] [place] [facility] [address] [id number] [place] [address]- 5934 Dec, [facility] [place] [facility] [address] [id number] [place] [address]- 6577 Dec, [facility] [place] [facility] [address] [id number] [place] [address]- 9885 Dec, [facility] [place] [facility] [address] [id number] [place] [address]- 5247 Dec, [facility] [place] [facility] [address] [id number] [place] [address]- 1360 Dec, [facility] [place] [facility] [address] [id number] [place] [address]- 5935 Dec, [facility] [place] [facility] [address] [id number] [place] [address]- 4347 Dec, [facility] [place] [facility] [address] [id number] [place] [address]- 8393 Nov, [facility] [place] [facility] [address] [id number] [place] [address]- 4046 Nov, [facility] [place] [facility] [address] [id number] [place] [address]- 7578 Nov, [facility] [place] [facility] [address] [id number] [place] [address]- 4304 Nov, [facility] [place] [facility] [address] [id number] [place] [address]- 2604 Nov, [facility] [place] [facility] [address] [id number] [place] [address]- 4779 Nov, [facility] [place] [facility] [address] [id number] [place] [address]- 6309 Nov, [facility] [place] [facility] [address] [id number] [place] [address]- 3301 Nov, [facility] [place] [facility] [address] [id number] [place] [address]- 5279 27 Oct, 2012 [facility] [address] [id number] [place] [address]- 6413 Oct, [facility] [address] [id number] [place] [address]- 9812 Oct, [facility] [address] [id number] [place] [address]- 0711 Oct, [facility] [address] [id number] [place] [address]- 0079 Oct, [facility] [address] [id number] [place] [address]- 1524 Oct, [facility] [address] [id number] [place] [address]- 6653 Oct, [facility] [address] [id number] [place] [address]- 6710 Oct, [facility] [address] [id number] [place] [address] 1929 19 Oct, 2012 [facility] [address] [id number] [place] [address]- 4515 18 Oct, 2012 [facility] [address] [id number] [place] [address]- 3793 17 Oct, 2012 [facility] [address] [id number] [place] [address]- 7347 14 Oct, 2012 [facility] [address] [id number] [place] [address]- 7716 07 Oct, 2012 [facility] [place] [facility] [address] [id number] [place] [address]- 8847 September, [facility] [place] [facility] [address] [id number] [place] [address]- 1169 September, [facility] [address] [id number] [place] [address]- 9288 September, [facility] [place] [facility] [address] [id number] [place] [address]- 7553 Aug, [facility] [address] [id number] [place] [address]- 0272 Aug, [facility] [address] [id number] [place] [address]- 5470 Aug, [facility] [place] [facility] [address] [id number] [place] [address]- 9404 Aug, [facility] [address] [id number] [place] [address]- 9132 Aug, [facility] [address] [id number] [place] [address]- 1644 Aug, [facility] [address] [id number] [place] [address]- 0340 Aug, [facility] [address] [id number] [place] [address]- 5541 Jul, [facility] [address] [id number] [place] [address]- 5158 Jul, [facility] [address] [id number] [place] [address]- 1800 Jul, [facility] [place] [facility] [address] [id number] [place] [address]- 3379 Jul, [facility] [place] [facility] [address] [id number] [place] [address]- 2531 Jul, [facility] [place] [facility] [address] [id number] [place] [address]- 2602 Jul, [facility] [place] [facility] [address] [id number] [place] [address]- 3659 Jul, [facility] [place] [facility] [address] [id number] [place] [address]- 0158 Jul, [facility] [place] [facility] [address] [id number] [place] [address]- 9422 20 Jul, 2012 [facility] [address] [id number] [place] [address]- 1706 Jul, [facility] [address] [id number] [place] [address]- 6376 Jul, [facility] [address] [id number] [place] [address]- 7246 Jul, [facility] [address] [id number] [place] [address] 2541 Jul, [facility] [address] [id number] [place] [address]- 1698 24 Jun, 2012 [facility] [address] [id number] [place] [address]- 6515 Jun, [facility] [address] [id number] [place] [address]- 8462 Jun, [facility] [address] [id number] [place] [address]- 6244 17 Jun, 2012 [facility] [address] [id number] [place] [address]- 0478 15 Jun, 2012 [facility] [address] [id number] [place] [address]- 5456 14 Jun, 2012 [facility] [address] [id number] [place] [address]- 3254 Jun, [facility] [address] [id number] [place] [address]- 6380 May, [facility] [address] [id number] [place] [address]- 3009 May, [facility] [address] [id number] [place] [address]- 1585 May, [facility] [address] [id number] [place] [address]- 9544 May, [facility] [place] [facility] [address] [id number] [place] [address]- 1084 May, [facility] [place] [facility] [address] [id number] [place] [address]- 4821 May, [facility] [place] [facility] [address] [id number] [place] [address]- 3070 May, [facility] [place] [facility] [address] [id number] [place] [address]- 0206 May, [facility] [place] [facility] [address] [id number] [place] [address]- 2172 May, [facility] [place] [facility] [address] [id number] [place] [address]- 3027 May, [facility] [place] [facility] [address] [id number] [place] [address]- 7455 Apr, [facility] [place] [facility] [address] [id number] [place] [address]- 2565 Apr, [facility] [place] [facility] [address] [id number] [place] [address]- 5200 Apr, [facility] [place] [facility] [address] [id number] [place] [address]- 2924 Apr, [facility] [place] [facility] [address] [id number] [place] [address]- 4283 Apr, [facility] [place] [facility] [address] [id number] [place] [address]- 6195 Apr, [facility] [place] [facility] [address] [id number] [place] [address]- 3880 Apr, [facility] [place] [facility] [address] [id number] [place] [address]- 8668 Apr, [facility] [place] [facility] [address] [id number] [place] [address]- 5509 Apr, [facility] [place] [facility] [address] [id number] [place] [address]- 6277 Apr, [facility] [place] [facility] [address] [id number] [place] [address]- 7056 Apr, [facility] [place] [facility] [address] [id number] [place] [address]- 3482 Apr, [facility] [place] [facility] [address] [id number] [place] [address]- 7824 Mar, [facility] [place] [facility] [address] [id number] [place] [address]- 6629 Mar, 2011 [facility] [place] [facility] [address] [id number] [place] [address]- 9803 Mar, [facility] [place] [facility] [address] [id number] [place] [address]- 0040 Mar, [facility] [place] [facility] [address] [id number] [place] [address]- 4748 Mar, [facility] [place] [facility] [address] [id number] [place] [address]- 5937 Mar, [facility] [place] [facility] [address] [id number] [place] [address]- 4423 Mar, [facility] [place] [facility] [address] [id number] [place] [address]- 9217 Mar, [facility] [place] [facility] [address] [id number] [place] [address]- 1799 Mar, [facility] [place] [facility] [address] [id number] [place] [address]- 5639 Mar, [facility] [place] [facility] [address] [id number] [place] [address]- 7273 Mar, [facility] [place] [facility] [address] [id number] [place] [address]- 4905 Mar, [facility] [place] [facility] [address] [facility] [id number] [place] [address]- 1689 Mar, [facility] [place] [facility] [address] [id number] [place] [address]- 3479 12 Mar, 2012 [facility] [place] [facility] [address] [id number] [place] [address]- 4724 03 Mar, 2012 [facility] [place] [facility] [address] [id number] [place] [address]- 3926 Mar, [facility] [place] [facility] [address] [id number] [place] [address]- 7346 25 Jan, 2012 [facility] [place] [facility] [address] [id number] [place] [address]- 0283 24 Jan, 2012 [facility] [place] [facility] [address] [id number] [place] [address]- 4863 22 Jan, 2012 [facility] [place] [facility] [address] [id number] [place] [address]- 9186 22 Jan, 2012 [facility] [place] [facility] [address] [id number] [place] [address]- 7272 21 Jan, 2012 [facility] [place] [facility] [address] [id number] [place] [address]- 0498 18 Jan, 2012 [facility] [place] [facility] [address] [id number] [place] [address]- 8839 14 Jan, 2012 [facility] [place] [facility] [address] [id number] [place] [address]- 7055 07 Jan, 2012 [facility] [place] [facility] [address] [id number] [place] [address]- 7200 15 Dec, 2011 [facility] [place] [facility] [address] [id number] [place] [address]- 7517 10 Dec, 2011 [facility] [place] [facility] [address] [id number] [place] [address]- 0807 09 Dec, 2011 [facility] [place] [facility] [address] [id number] [place] [address]- 1556 08 Dec, 2011 [facility] [place] [facility] [address] [id number] [place] [address]- 0873 Dec, [facility] [place] [facility] [address] [id number] [place] [address]- 0304 Dec, [facility] [place] [facility] [address] [id number] [place] [address]- 0619 Dec, [facility] [place] [facility] [address] [id number] [place] [address]- 7592 Nov, [facility] [place] [facility] [address] [id number] [place] [address]- 9039 Oct, [facility] [place] [facility] [address] [id number] [place] [address]- 2256 Aug, [facility] [place] [facility] [address] [id number] [place] [address]- 8690 Jul, [facility] [place] [facility] [address] [id number] [place] [address]- 3704 Jul, [facility] [place] [facility] [address] [id number] [place] [address]- 2696 16 Jul, 2011 [facility] [place] [facility] [address] [id number] [place] [address]- 1242 14 Jul, 2011 [facility] [place] [facility] [address] [id number] [place] [address]- 3675 Jul, [facility] [place] [facility] [address] [id number] [place] [address]- 1893 Jul, [facility] [place] [facility] [address] [id number] [place] [address]- 9658 Jul, [facility] [place] [facility] [address] [id number] [place] [address]- 1460 15 Jul, 2011 [facility] [place] [facility] [address] [id number] [place] [address]- 4030 13 Jul, 2011 [facility] [place] [facility] [address] [id number] [place] [address]- 4416 Jul, [facility] [place] [facility] [address] [id number] [place] [address]- 5351 02 Jul, 2011 [facility] [address] [id number] [place] [address]- 8818 Jun, [facility] [address] [id number] [place] [address]- 4794 Jun, [facility] [address] [id number] [place] [address]- 5461 Jun, [facility] [address] [id number] [place] [address]- 3542 Jun, [facility] [address] [id number] [place] [address]- 1768 Jun, [facility] [address] [id number] [place] [address]- 5216 Jun, [facility] [address] [id number] [place] [address]- 1406 Jun, [facility] [address] [id number] [place] [address]- 3507 May, [facility] [address] [id number] [place] [address]- 0405 May, [facility] [address] [id number] [place] [address]- 0461 May, [facility] [address] [id number] [place] [address]- 8410 14 May, 2011 [facility] [address] [id number] [place] [address]- 7438 14 May, 2011 [facility] [address] [id number] [place] [address]- 8221 May, [facility] [address] [id number] [place] [address]- 7013 May, [facility] [address] [id number] [place] [address]- 2795 May, [facility] [address] [id number] [place] [address] 97[address] May, [facility] [address] [facility] [id number] [place] [address] 1776 May, [facility] [address] [facility] [id number] [place] [address] 38[address] Apr, [facility] [address] [facility] [id number] [place] [address] 8116 Apr, [facility] [address] [facility] [id number] [place] [address] 38[address] Apr, [facility] [address] [facility] [id number] [place] [address] Apr, [facility] [id number] [address] 4320 Mar, [facility] [id number] [place] [address] Mar, [facility] [id number] [address] Mar, [facility] [address] [id number] [address] Mar, IMMUNIZATIONS No Known Immunizations SOCIAL HISTORY Never Assessed REASON FOR VISIT Refill request PLAN OF CARE VITAL SIGNS MEDICATIONS Medication Instructions Dosage Frequency Start Date End Date Duration Status Quetiapine Fumarate 300 MG Orally for anxeity and sleep 1 tablet at bedtime Mar, 90 days Active Gabapentin 800MG Orally Three times [...]
--- OUTSIDE RECORDS SUMMARY | 2017-12-29 16:52 | XMS REPORT ---
Author Author SANDI ITZ [facility] Address [address] [place] [address] Care Team Providers Care Inventory Assistant Name Role Phone ITZ JUNIOR Unavailable PROBLEMS Type Condition ICD9-CM Code [id number] Code Onset Dates Condition Status SNOMED Code Problem FRANCIS (generalized anxiety disorder) F41.1 Active 62140751 Problem Conversion disorder (or hysterical neurosis, conversion type) F44.9 Active 59277367 Problem Thoracic disc herniation M51.24 Active 926109056 Problem Major depressive disorder in partial remission F32.4 Active 29418958 Problem Restless leg syndrome G25.81 Active 70969241 Problem Mild episode of recurrent major depressive disorder F33.0 Active 545559471 Problem Paroxysmal tachycardia I47.9 Active 15961395 Problem Seizure disorder G40.909 Active 758798846 Problem Constipation, unspecified constipation type K59.00 Active 87776743 Problem Slow transit constipation K59.01 Active 14272464 ALLERGIES Substance Reaction Event Type Date Status Macrobid hives Drug Allergy Mar, Active Levaquin hives Drug Allergy Mar, Active Tramadol Unknown Drug Allergy Mar, Active Ambien 10 Mg Tablet Sleep Walking and Sleep Driving. Eating while asleep. lg Non Drug Allergy Mar, Active ENCOUNTERS Encounter Location Date Diagnosis [facility] [address] [facility] [id number], [place] [address] Dec, [facility] [address] [facility] [id number], [place] [address] September, [facility] [address] [id number], [place] [address] September, Major depressive disorder in partial remission F32.4 ; FRANCIS ( generalized anxiety disorder) F41.1 and Restless leg syndrome G25.81 [facility] [id number] [place] [address] 09906- 0173 September, [facility] [id number] [place] [address] 49063- 9940 Jul, [facility] [id number] [place] [address] 97949- 6373 Jul, Dorsalgia, unspecified M54.9 [facility] [id number] [place] [address] 09025- 2775 Jul, Mild episode of recurrent major depressive disorder F33.0 and FRANCIS (generalized anxiety disorder) F41.1 [facility] [id number] [place] [address] 70368- 0639 May, [facility] [id number] [place] [address] 52264 -4232 May, Dysuria R30.0 and Acute cystitis with hematuria N30.01 [facility] [id number] [place] [address] 50166- 1694 Apr, [facility] [id number] [place] [address] 13638- 5515 Apr, Major depressive disorder in partial remission F32.4 and FRANCIS (generalized anxiety disorder) F41.1 [facility] [id number] [place] [address] 65685- 5786 Mar, Paroxysmal tachycardia I47.9 [facility] [id number] [place] [address] 08214- 5565 Mar, Paroxysmal tachycardia I47.9 and Pain of left lower extremity M79.605 [facility] [id number] [place] [address] 38430- 5517 Mar, FRANCSI (generalized anxiety disorder) F41.1 and Major depressive disorder in partial remission F32.4 [facility] [id number] [place] [address] 56822- 8018 Jan, [facility] [id number] [place] [address] 01151- 5933 14 Jan, 2017 [facility] [id number] [place] [address] 85344- 9091 Jan, [facility] [id number] [place] [address] 90010 -2096 Dec, Constipation, unspecified constipation type K59.00 [facility] [id number] [place] [address] 13053- 6869 Dec, [facility] [id number] [place] [address] 73271- 2662 Nov, [facility] [id number] [place] [address] 26698- 2676 Nov, Major depressive disorder in partial remission F32.4 and FRANCIS (generalized anxiety disorder) F41.1 [facility] [id number] [place] [address] 08068 -4373 Oct, Abdominal pain R10.9 and Slow transit constipation K59.01 [facility] [id number] [place] [address] 40059- 2715 Aug, Major depressive disorder in partial remission F32.4 ; FRANCIS ( generalized anxiety disorder) F41.1 ; Conversion disorder (or hysterical neurosis, conversion type) F44.9 ; Dorsalgia, unspecified M54.9 and Long-term use of high-risk medication Z79.899 [facility] [id number] [place] [address] 71452- 5545 Aug, [facility] [id number] [place] [address] 17784- 9000 Jul, Paroxysmal tachycardia I47.9 [facility] [id number] [place] [address] 56336- 7222 Jul, Paroxysmal tachycardia I47.9 [facility] [id number] [place] [address] 42488- 9843 Jun, [facility] [id number] [address]- 4852 Jun, Major depressive disorder in partial remission F32.4 ; FRANCIS ( generalized anxiety disorder) F41.1 and Conversion disorder (or hysterical neurosis, conversion type) F44.9 [facility] [id number] [place] [address] 19116 -0334 May, Pelvic pain R10.2 [facility] [address] 98066 -1350 Apr, Gastroenteritis K52.9 [facility] [address] 50975 -8078 Apr, Blood in urine R31.9 and Acute cystitis with hematuria N30.01 [facility] [id number] [place] [address] 80178- 2200 Apr, Major depressive disorder in partial remission F32.4 ; FRANCIS ( generalized anxiety disorder) F41.1 and Conversion disorder (or hysterical neurosis, conversion type) F44.9 [facility] [facility] [address] 44269- 9541 Apr, [facility] [address] 18040- 1215 Apr, Abnormal mammogram R92.8 [facility] [id number] [place] [address] 15096- 2094 Mar, [facility] [id number] [place] [address] 91503- 7456 Mar, Gastroenteritis K52.9 and Seizure disorder G40.909 [facility] [id number] [place] [address] 56025- 9395 Dec, [facility] [id number] [place] [address] 02623 -6487 Dec, Other headache syndrome G44.89 [facility] [address] 78192- 9433 Dec, [facility] [address] [facility] [id number], [place] [address]- 7532 Dec, Thoracic disc herniation M51.24 [facility] [address] [facility] [id number] [place] [address] 66613- 9237 Dec, [facility] [id number] [place] [address] 44931- 6438 Nov, Major depressive disorder in partial remission F32.4 and FRANCIS (generalized anxiety disorder) F41.1 [facility] [address] [facility] [id number], [place] [address]- 2766 Nov, [facility] [id number] [place] [address] 03840- 3498 Nov, Dorsalgia, unspecified M54.9 [facility] [id number] [place] [address] 71223- 8111 Oct, [facility] [address], [place] [address]- 8028 September, [facility] [id number] [place] [address] 30710- 3516 Aug, [facility] [address] [id number], [place] [address]- 4822 Aug, Major depressive disorder in partial remission F32.4 and FRANCIS (generalized anxiety disorder) F41.1 [facility] [address], [place] [address]- 9027 Aug, [facility] [address] [id number], [place] [address]- 4787 Jul, Abnormal mammogram R92.8 [facility] [address] [id number], [place] [address]- 1670 Jul, [facility] [address] [id number], [place] [address]- 1226 Jul, [facility] [address] [id number], [place] [address]- 8790 Jul, [facility] [address], [place] [address]- 8490 Jul, [facility] [address], [place] [address]- 5984 Jul, [facility] [id number] [place] [address] 65260- 5347 Jul, [facility] [id number] [place] [address] 82428- 9554 Jun, Major depressive disorder in partial remission F32.4 and FRANCIS (generalized anxiety disorder) F41.1 [facility] [id number] [place] [address] 22326- 9934 Jun, [facility] [id number] [place] [address] 57559- 3428 May, [facility] [id number] [place] [address] 33949- 2721 Apr, [facility] [id number] [place] [address] 566480- 4989 Mar, Major depressive disorder, recurrent episode, moderate F33.1 ; PTSD (post-traumatic stress disorder) F43.10 and FRANCIS (generalized anxiety disorder) F41.1 [facility] [address], [place] [address]- 6537 Mar, [facility] [address], [place] [address]- 4167 Mar, [facility] [address] [id number] 5331 Mar, [facility] [id number] [place] [address] 99470- 3876 Mar, [facility] [address], [place] [address]- 7476 Jan, [facility] [address], [place] [address]- 0476 15 Jan, 2015 [facility] [address], [place] [address]- 3929 15 Jan, 2015 [facility] [address], [place] [address]- 0667 14 Jan, 2015 Thoracic disc herniation 722.11 [facility] [id number] [place] [address] 72077- 1189 Dec, [facility] [address] 2780 Dec, [facility] [address], [place] [address]- 0592 Dec, [facility] [id number] [place] [address] 46202- 0846 Nov, [facility] [id number] [place] [address] 34415- 0795 14 Nov, 2014 Generalized anxiety disorder 300.02 ; Posttraumatic stress disorder 309.81 and Major depressive disorder, recurrent episode, moderate 296.32 [facility] [address], [place] [address]- 3809 Nov, [facility] [address], [place] [address]- 6207 Nov, [facility] [address], [place] [address]- 0579 Oct, [facility] [address], [place] [address]- 3399 Oct, [facility] [address] 1721 Oct, [facility] [address], [place] [address]- 7809 September, [facility] [address], [place] [address]- 0327 September, [facility] [place] [facility] [address] [id number] [place] [address]- 7986 14 Aug, 2014 [facility] [place] [facility] [address] [id number] [place] [address]- 9116 Aug, [facility] [place] [facility] [address] [id number] [place] 0470 Jul, [facility] [place] [facility] [address] [id number] [place] [address]- 1484 Jul, [facility] [place] [facility] [address] [id number] [place] [address]- 1066 Jul, [facility] [place] [facility] [address] [id number] [place] [address]- 3878 17 Jul, 2014 [facility] [place] [facility] [address] [id number] [place] [address]- 2509 16 Jul, 2014 [facility] [place] [facility] [address] [id number] [place] [address]- 9528 16 Jul, 2014 [facility] [place] [facility] [address] [id number] [place] [address]- 6836 Jul, [facility] [place] [facility] [address] [id number] [place] [address]- 1895 Jul, [facility] [place] [facility] [address] [id number] [place] [address]- 1880 Jul, [facility] [place] [facility] [address] [id number] [place] [address]- 3920 Jul, [facility] [place] [facility] [address] [id number] [place] [address]- 6346 Jun, [facility] [place] [facility] [address] [id number] [place] [address]- 4905 Jun, [facility] [place] [facility] [address] [id number] [place] [address]- 1733 Jun, [facility] [place] [facility] [address] [id number] [place] [address]- 5028 May, [facility] [place] [facility] [address] [id number] [place] [address]- 9336 Apr, [facility] [place] [facility] [address] [id number] [place] [address]- 5683 Apr, [facility] [place] [facility] [address] [id number] [place] [address]- 7463 Apr, [facility] [place] [facility] [address] [id number] [place] [address]- 7425 Apr, [facility] [place] [facility] [address] [id number] [place] [address]- 4593 Apr, [facility] [place] [facility] [address] [id number] [place] [address]- 0999 Apr, [facility] [place] [facility] [address] [id number] [place] [address]- 3744 Apr, [facility] [place] [facility] [address] [id number] [place] [address]- 6006 Apr, [facility] [place] [facility] [address] [id number] [place] [address]- 5606 Mar, [facility] [place] [facility] [address] [id number] [place] [address]- 0982 Mar, [facility] [place] [facility] [address] [id number] [place] [address]- 4166 Mar, [facility] [place] [facility] [address] [id number] [place] [address]- 0569 Mar, [facility] [place] [facility] [address] [id number] [place] [address]- 2699 Mar, [facility] [place] [facility] [address] [id number] [place] [address]- 8663 Mar, [facility] [place] [facility] [address] [id number] [place] [address]- 6914 Mar, [facility] [place] [facility] [address] [id number] [place] [address]- 5539 Mar, [facility] [place] [facility] [address] [id number] [place] [address]- 3362 Mar, [facility] [place] [facility] [address] [id number] [place] [address]- 7784 Mar, [facility] [place] [facility] [address] [id number] [place] [address]- 1881 Mar, [facility] [place] [facility] [address] [id number] [place] [address]- 2448 Mar, [facility] [place] [facility] [address] [id number] [place] [address]- 7739 Mar, [facility] [place] [facility] [address] [id number] [place] [address]- 4171 Mar, [facility] [place] [facility] [address] [id number] [place] [address]- 1814 Mar, [facility] [place] [facility] [address] [id number] [place] [address]- 5487 Mar, [facility] [place] [facility] [address] [id number], [place] [address]- 5178 Mar, [facility] [place] [facility] [address] [id number], [place] [address]- 2441 Jan, 2013 [facility] [place] [facility] [address] [id number], [place] [address]- 4085 Jan, 2013 [facility] [place] [facility] [address] [id number], [place] [address]- 3778 09 Sep, 2013 [facility] [place] [facility] [address] [id number], [place] [address]- 6823 09 Sep, 2013 [facility] [place] [facility] [address] [id number], [place] [address]- 1377 05 Sep, 2013 [facility] [place] [facility] [address] [id number], [place] [address]- 7806 05 Jan, 2013 [facility] [address] [id number] [place] [address]- 8847 05 Jan, 2013 [facility] [address] [id number] [place] [address]- 8076 Jan, 2013 [facility] [address] [id number] [place] [address]- 3676 Jan, 2013 [facility] [address] [id number] [place] [address]- 3662 Jan, 2013 [facility] [address] [id number] [place] [address]- 2814 Jan, 2013 [facility] [address] [id number] [place] [address]- 9974 Jan, 2013 [facility] [address] [id number] [place] [address]- 0773 Jan, 2013 [facility] [address] [id number] [place] [address]- 3539 Dec, [facility] [address] [id number] [place] [address]- 1360 Dec, [facility] [address] [id number] [place] [address]- 2438 Dec, [facility] [address] [id number] [place] [address]- 7854 Dec, [facility] [address] [id number], [place] [address]- 7226 Dec, [facility] [address] [id number] [place] [address]- [address] Dec, [address] [facility] [address] [facility] [place] [id number] Dec [facility] [place] [id number] Dec [facility] [address] [id number] [place] [address]- 0652 Dec, [facility] [place] [facility] [address] [id number] [place] [address]- 1961 Dec, [facility] [place] [facility] [address] [id number] [place] 5840 Dec, [facility] [place] [facility] [address] [id number] [place] [address]- 0157 Dec, [facility] [place] [facility] [address] [id number] [place] [address]- 9641 Nov, [facility] [place] [facility] [address] [id number] [place] [address]- 7414 Nov, [facility] [place] [facility] [address] [id number] [place] [address]- 6990 Nov, [facility] [place] [facility] [address] [id number] [place] [address]- 8941 Nov, [facility] [place] [facility] [address] [id number] [place] [address]- 5246 Nov, [facility] [place] [facility] [address] [id number] [place] [address]- 3236 Nov, [facility] [place] [facility] [address] [id number] [place] [address]- 1669 Nov, [facility] [place] [facility] [address] [id number] [place] [address]- 1457 Nov, [facility] [place] [facility] [address] [id number] [place] [address]- 4339 Nov, [facility] [place] [facility] [address] [id number] [place] [address]- 1549 Nov, [facility] [place] [facility] [address] [id number] [place] [address]- 4360 Nov, [facility] [place] [facility] [address] [id number] [place] [address]- 2929 Nov, [facility] [place] [facility] [address] [id number] [place] [address]- 2766 Nov, [facility] [place] [facility] [address] [id number] [place] [address]- 0782 Oct, [facility] [place] [facility] [address] [id number] [place] [address]- 8709 Oct, [facility] [place] [facility] [address] [id number] [place] [address]- 5306 Oct, [facility] [place] [facility] [address] [id number] [place] [address]- 1870 Oct, [facility] [place] [facility] [address] [id number] [place] [address]- 4156 Oct, [facility] [place] [facility] [address] [id number] [place] [address] Oct, [facility] [place] [facility] [address] [id number] [place] [address] Oct, [facility] [place] [facility] [address] [id number] [place] [address] Oct, [facility] [place] [facility] [address] [id number] [place] [address] Oct, [facility] [place] [facility] [address] [id number] [place] [address] Oct, [facility] [place] [facility] [address] [id number] [place] [address] Oct, [facility] [place] [facility] [address] [id number] [place] [address] Oct, [facility] [place] [facility] [address] [id number] [place] [address] September, [facility] [place] [facility] [address] [id number] [place] [address] September, [facility] [place] [facility] [address] [id number] [place] [address] September, [facility] [place] [facility] [address] [id number] [place] [address] September, [facility] [place] [facility] [address] [id number] [place] [address] Aug, [facility] [place] [facility] [address] [id number] [place] [address] Aug, [facility] [place] [facility] [address] [id number] [place] [address] Aug, [facility] [place] [facility] [address] [id number] [place] [address] Aug, [facility] [place] [facility] [address] [id number] [place] [address] Aug, [facility] [place] [facility] [address] [id number] [place] [address] Aug, [facility] [place] [facility] [address] [id number] [place] [address] Aug, [facility] [place] [facility] [address] [id number] [place] [address] Jul, [facility] [place] [facility] [address] [id number] [place] [address] Jul, [facility] [place] [facility] [address] [id number] [place] [address] Jul, [facility] [place] [facility] [address] [id number] [place] [address] Jul, [facility] [place] [facility] [address] [id number] [place] [address] Jul, [facility] [place] [facility] [address] [id number] [place] [address] Jul, [facility] [place] [facility] [address] [id number] [place] [address] Jul, [facility] [place] [facility] [address] [id number] [place] [address] Jul, [facility] [place] [facility] [address] [id number] [place] [address] 18 Jul, 2013 [facility] [place] [facility] [address] [id number] [place] [address] 18 Jul, 2013 [facility] [place] [facility] [address] [id number] [place] [address] 18 Jul, 2013 [facility] [place] [facility] [address] [id number] [place] [address] Jul, [facility] [place] [facility] [address] [id number] [place] [address] 14 Jul, 2013 [facility] [place] [facility] [address] [id number] [place] [address]- [address] 14 Jul, 2013 [facility] [place] [facility] [address] [facility] [id number] [place] [address] Jul, [facility] [place] [facility] [address] [id number] [place] [address] Jul, [facility] [place] [facility] [address] [id number] [place] [address] Jul, [facility] [place] [facility] [address] [facility] [id number] [place] [address]- [address] Jul, [facility] [place] [facility] [address] [id number] [place] [address] Jun, [facility] [place] [facility] [address] [id number] [place] [address] Jun, [facility] [place] [facility] [address] [id number] [place] [address] Jun, [facility] [place] [facility] [address] [id number] [place] [address] 15 Jun, 2013 [facility] [place] [facility] [address] [facility] [id number] [place] [address]- [address] 14 Jun, 2013 [facility] [address] [id number] [place] [address]- [address] 14 Jun, 2013 [facility] [place] [facility] [address] [id number] [place] [address] 14 Jun, 2013 [facility] [place] [facility] [address] [id number] [place] [address] 14 Jun, 2013 [facility] [place] [facility] [address] [id number] [place] [address]- [address] 14 Jun, 2013 [facility] [address] [id number] [place] [address]- [address] 14 Jun, 2013 [facility] [place] [facility] [address] [id number] [place] [address]- [address] 27 May, 2013 [facility] [place] [facility] [address] [id number] [place] [address]- [address] 27 May, 2013 [facility] [place] [facility] [address] [id number] [place] [address]- 4811 26 May, 2013 [facility] [place] [facility] [address] [id number] [place] [address]49 19 May, 2013 [facility] [place] [facility] [address] [id number] [place] [address] 8309 19 May, 2013 [facility] [place] [facility] [address] [id number] [place] [address] 1989 16 May, 2013 [facility] [place] [facility] [address] [id number], [place] [address] 1680 16 May, 2013 [facility] [place] [facility] [address] [id number] [place] [address] 4795 16 May, 2013 [facility] [place] [facility] [address] [id number] [place] [address]- 2903 16 May, 2013 [facility] [place] [facility] [address] [id number] [place] [address] 3900 13 May, 2013 [facility] [place] [facility] [address] [id number] [place] [address]- 7391 13 May, 2013 [facility] [address] [id number] [place] [address] 5313 11 May, 2013 [facility] [place] [facility] [address] [id number] [place] [address] 9877 20 Apr, 2013 [facility] [place] [facility] [address] [facility] [id number] [place] [address] 4195 18 Apr, 2013 [facility] [place] [facility] [address] [id number] [place] [address] 1908 18 Apr, 2013 [facility] [place] [facility] [address] [id number] [place] [address]- 7947 Apr, [facility] [place] [facility] [address] [id number] [place] [address]- 6606 Apr, [facility] [place] [facility] [address] [facility] [id number] [place] [address]- 6785 08 Apr, 2013 [facility] [place] [facility] [address] [id number] [place] [address]- 7260 08 Apr, 2013 [facility] [place] [facility] [address] [id number] [place] [address]- 9300 07 Apr, 2013 [facility] [place] [facility] [address] [facility] [id number] [place] [address]- 5328 07 Apr, 2013 [facility] [place] [facility] [address] [id number] [place] [address]- 9667 07 Apr, 2013 [facility] [place] [facility] [address] [id number], [place] [address] 3111 07 Apr, 2013 [facility] [place] [facility] [address] [id number], [place] [address] 4562 Mar, [facility] [place] [facility] [address] [facility] [id number], [place] [address]- 7285 Mar, [facility] [place] [facility] [address] [facility] [id number], [place] [address]- 3702 Mar, [facility] [place] [facility] [address] [id number] [place] [address]- 6149 Mar, [facility] [place] [facility] [address] [id number] [place] [address]- 5058 Mar, [facility] [place] [facility] [address] [id number] [place] [address]- 4712 Mar, [facility] [place] [facility] [address] [id number] [place] [address]- 8781 Mar, [facility] [place] [facility] [address] [id number] [place] [address]- 2188 Mar, [facility] [place] [facility] [address] [id number] [place] [address]- 0700 Mar, [facility] [place] [facility] [address] [id number] [place] [address]- 2230 Mar, [facility] [place] [facility] [address] [id number] [place] [address]- 1306 15 Mar, 2013 [facility] [place] [facility] [address] [id number] [place] [address]- 4024 Mar, [facility] [place] [facility] [address] [id number] [place] [address]- 9900 30 Jan, 2013 [facility] [place] [facility] [address] [id number] [place] [address]- 5878 25 Jan, 2013 [facility] [place] [facility] [address] [id number] [place] [address]- 1750 20 Jan, 2013 [facility] [place] [facility] [address] [id number] [place] [address]- 3668 10 Jan, 2013 [facility] [place] [facility] [address] [id number] [place] [address]- 2061 Dec, [facility] [place] [facility] [address] [id number] [place] [address]- 2039 Dec, [facility] [place] [facility] [address] [id number] [place] [address]- 6734 Dec, [facility] [place] [facility] [address] [id number] [place] [address]- 5156 Dec, [facility] [place] [facility] [address] [id number] [place] [address]- 7520 Dec, [facility] [place] [facility] [address] [id number] [place] [address]- 2536 Dec, [facility] [place] [facility] [address] [id number] [place] [address]- 5458 Dec, [facility] [place] [facility] [address] [id number] [place] [address]- 2141 Dec, [facility] [place] [facility] [address] [id number] [place] [address]- 7891 Dec, [facility] [place] [facility] [address] [id number] [place] [address]- 7504 Nov, [facility] [place] [facility] [address] [id number] [place] [address]- 8899 Nov, [facility] [place] [facility] [address] [id number] [place] [address]- 9364 Nov, [facility] [place] [facility] [address] [id number] [place] [address]- 4236 Nov, [facility] [place] [facility] [address] [id number] [place] [address]- 3232 Nov, [facility] [place] [facility] [address] [id number] [place] [address]- 6097 Nov, [facility] [place] [facility] [address] [id number] [place] [address]- 6323 Nov, [facility] [place] [facility] [address] [id number] [place] [address]- 2822 Nov, [facility] [place] [facility] [address] [id number] [place] [address]- 4123 Oct, [facility] [place] [facility] [address] [id number] [place] [address]- 3892 27 Oct, 2012 [facility] [address] [id number] [place] [address]- 5618 Oct, [facility] [address] [id number] [place] [address]- 7531 Oct, [facility] [address] [id number] [place] [address]- 2587 Oct, [facility] [address] [id number] [place] [address]- 5047 Oct, [facility] [address] [id number] [place] [address]- 9995 Oct, [facility] [address] [id number] [place] [address]- 7191 Oct, [facility] [address] [id number] [place] [address]- 6289 Oct, [facility] [address] [id number] [place] [address]- 9469 18 Oct, 2012 [facility] [address] [id number] [place] [address]- 0984 17 Oct, 2012 [facility] [address] [id number] [place] [address]- 5419 14 Oct, 2012 [facility] [address] [id number] [place] [address]- 5980 07 Oct, 2012 [facility] [address] [id number] [place] [address]- 2528 September, [facility] [place] [facility] [address] [id number] [place] [address]- 2401 September, [facility] [place] [facility] [address] [id number] [place] [address]- 2285 September, [facility] [address] [id number] [place] [address]- 7848 Aug, [facility] [place] [facility] [address] [id number] [place] [address]- 5115 Aug, [facility] [place] [facility] [address] [id number] [place] [address]- 1908 Aug, [facility] [place] [facility] [address] [id number] [place] [address]- 7335 Aug, [facility] [place] [facility] [address] [id number] [place] [address]- 1400 Aug, [facility] [address] [id number] [place] [address]- 4361 Aug, [facility] [place] [facility] [address] [id number] [place] [address]- 6276 Aug, [facility] [address] [id number] [place] [address]- 8920 Jul, [facility] [address] [id number] [place] [address]- 5157 Jul, [facility] [place] [facility] [address] [id number] [place] [address]- 9925 Jul, [facility] [place] [facility] [address] [id number] [place] [address]- 9606 Jul, [facility] [place] [facility] [address] [id number] [place] [address]- 7284 Jul, [facility] [place] [facility] [address] [id number] [place] [address]- 8532 Jul, [facility] [place] [facility] [address] [id number] [place] [address]- 7127 Jul, [facility] [place] [facility] [address] [id number] [place] [address]- 6349 Jul, [facility] [place] [facility] [address] [id number] [place] [address]- 5503 Jul, [facility] [place] [facility] [address] [id number] [place] [address]- 1059 Jul, [facility] [address] [id number] [place] [address]- 3816 Jul, [facility] [address] [id number] [place] [address]- 0206 Jul, [facility] [address] [id number] [place] [address]- 1576 Jul, [facility] [address] [id number] [place] [address]- 5380 24 Jun, 2012 [facility] [address] [id number] [place] [address]- 3435 Jun, [facility] [address] [id number] [place] [address]- 1686 Jun, [facility] [address] [id number] [place] [address]- 6921 17 Jun, 2012 [facility] [address] [id number] [place] [address]- 8263 15 Jun, 2012 [facility] [address] [id number] [place] [address]- 2722 14 Jun, 2012 [facility] [address] [id number] [place] [address]- 6953 08 Jun, 2012 [facility] [address] [id number] [place] [address]- 8013 May, [facility] [address] [id number] [place] [address]- 7725 May, [facility] [address] [id number] [place] [address]- 5052 May, [facility] [address] [id number] [place] [address]- 1450 May, [facility] [address] [id number] [place] [address]- 5259 May, [facility] [place] [facility] [address] [id number] [place] [address]- 7115 May, [facility] [place] [facility] [address] [id number] [place] [address]- 8136 May, [facility] [place] [facility] [address] [id number] [place] [address]- 8359 May, [facility] [place] [facility] [address] [id number] [place] [address]- 2328 May, [facility] [place] [facility] [address] [id number] [place] [address]- 2833 May, [facility] [place] [facility] [address] [id number] [place] [address]- 0241 Apr, [facility] [place] [facility] [address] [id number] [place] [address]- 4918 Apr, [facility] [place] [facility] [address] [id number] [place] [address]- 5623 Apr, [facility] [place] [facility] [address] [id number] [place] [address]- 6964 Apr, [facility] [place] [facility] [address] [id number] [place] [address]- 4635 Apr, [facility] [place] [facility] [address] [id number] [place] [address]- 1852 Apr, [facility] [place] [facility] [address] [id number], [place] [address]- 2667 Apr, [facility] [place] [facility] [address] [id number] [place] [address]- 2430 Apr, [facility] [place] [facility] [address] [id number] [place] [address]- 3509 Apr, [facility] [place] [facility] [address] [id number], [place] [address]- 6931 Apr, [facility] [place] [facility] [address] [id number], [place] [address]- 2552 Apr, [facility] [place] [facility] [address] [id number] [place] [address]- 1644 Apr, [facility] [place] [facility] [address] [id number] [place] [address]- 4766 Mar, 2011 [facility] [place] [facility] [address] [id number] [place] [address]- 9140 Mar, [facility] [place] [facility] [address] [id number] [place] [address]- 7428 Mar, 2011 [facility] [place] [facility] [address] [id number] [place] [address]- 5343 Mar, 2011 [facility] [place] [facility] [address] [id number] [place] [address]- 6297 Mar, [facility] [place] [facility] [address] [id number], [place] [address]- 3869 Mar, [facility] [place] [facility] [address] [id number] [place] [address]- 8729 Mar, [facility] [place] [facility] [address] [id number], [place] [address]- 9307 Mar, [facility] [place] [facility] [address] [id number], [place] [address]- 3841 Mar, [facility] [place] [facility] [address] [id number], [place] [address]- 9383 Mar, [facility] [place] [facility] [address] [id number], [place] [address]- 0628 Mar, [facility] [place] [facility] [address] [id number] 3245 Mar, [facility] [place] [facility] [address] [id number], [place] [address]- 2022 Mar, [facility] [place] [facility] [address] [id number], [place] [address]- 9139 Mar, [facility] [place] [facility] [address] [id number] [place] [address]- 0051 Mar, [facility] [place] [facility] [address] [id number] [place] [address]- 4918 Mar, [facility] [place] [facility] [address] [id number] [place] [address]- 1506 25 Jan, 2012 [facility] [place] [facility] [address] [id number] [place] [address]- 0416 24 Jan, 2011 [facility] [place] [facility] [address] [id number] [place] [address]- 4993 22 Jan, 2011 [facility] [place] [facility] [address] [id number] [place] [address]- 4945 22 Jan, 2012 [facility] [place] [facility] [address] [id number] [place] [address]- 0343 21 Jan, 2012 [facility] [place] [facility] [address] [id number] [place] [address]- 7966 18 Jan, 2012 [facility] [place] [facility] [address] [id number] [place] [address]- 1664 14 Jan, 2012 [facility] [place] [facility] [address] [id number] [place] [address]- 0214 07 Jan, 2012 [facility] [place] [facility] [address] [id number] [place] [address]- 8361 15 Dec, 2011 [facility] [place] [facility] [address] [id number] [place] [address]- 8636 10 Dec, 2011 [facility] [place] [facility] [address] [id number] [place] [address]- 8787 Dec, [facility] [place] [facility] [address] [id number] [place] [address]- 8709 Dec, [facility] [place] [facility] [address] [id number] [place] [address]- 2036 Dec, [facility] [place] [facility] [address] [id number] [place] [address]- 6119 Dec, [facility] [place] [facility] [address] [id number] [place] [address]- 6773 Dec, [facility] [place] [facility] [address] [id number] [place] [address]- 5092 Nov, [facility] [place] [facility] [address] [id number] [place] [address]- 6361 Oct, [facility] [place] [facility] [address] [id number] [place] [address]- 9528 Aug, [facility] [place] [facility] [address] [id number] [place] [address]- 6780 22 Jul, 2011 [facility] [place] [facility] [address] [id number] [place] [address]- 3248 19 Jul, 2011 [facility] [place] [facility] [address] [id number] [place] [address]- 8886 16 Jul, 2011 [facility] [place] [facility] [address] [id number] [place] [address]- 0656 14 Jul, 2011 [facility] [place] [facility] [address] [id number] [place] [address]- 5731 Jul, [facility] [place] [facility] [address] [facility] [id number] [place] [address]- 3568 Jul, [facility] [place] [facility] [address] [id number] [place] [address]- 8952 Jul, [facility] [place] [facility] [address] [id number] [place] [address]- 2878 15 Jul, 2011 [facility] [place] [facility] [address] [id number] [place] [address]- 0597 13 Jul, 2011 [facility] [place] [facility] [address] [id number] [place] [address]- 1400 03 Jul, 2011 [facility] [place] [facility] [address] [facility] [id number] [place] [address]- 3357 02 Jul, 2011 [facility] [place] [facility] [address] [id number] [place] [address]- 3816 24 Jun, 2011 [facility] [address] [id number] [place] [address]- 7661 Jun, [facility] [address] [id number] [place] [address]- 0916 13 Jun, 2011 [facility] [address] [id number] [place] [address]- 1726 Jun, [facility] [address] [id number] [place] [address]- 5360 Jun, [facility] [address] [id number] [place] [address]- 8132 Jun, [facility] [address] [id number] [place] [address]- 1661 Jun, [facility] [address] [id number] [place] [address]- 4912 May, [facility] [address] [id number] [place] [address]- 8017 May, [facility] [address] [id number] [place] [address]- 1191 May, [facility] [address] [id number] [place] [address]- 8294 14 May, 2011 [facility] [address] [id number] [place] [address] 2544 14 May, 2011 [facility] [address] [id number] [place] [address]- 3963 May, [facility] [address] [id number] [place] 5337 May, [facility] [address] [id number] [place] [address]- 2640 May, [facility] [address] [id number] [place] [address]- 3664 May, [facility] [address] [id number], [place] [address] 8735 May, [facility] [id number], [place] [address]- 6228 Apr, [facility] [id number] 6409 Apr, [facility] [id number] [address]689 Apr, [facility] [id number] [address]402 Apr, [facility] [id number], [place] [address]- 1243 Mar, [facility] [id number], [place] [address]- 4918 Mar, [facility] [id number], [place] [address]- 6429 Mar, [facility] [id number], [place] [address] Mar, IMMUNIZATIONS No Known Immunizations SOCIAL HISTORY Never Assessed REASON FOR VISIT f/u--Laina Peterson MA PLAN OF CARE Activity Details Follow Up 6 Weeks Reason: VITAL SIGNS Height 62 in 2017-03-03 Weight 151.5 lbs 2017-03-03 Heart Rate 88 bpm 2017-03-03 Respiratory Rate 20 2017-03-03 BMI 27.71 kg/m2 2017-03-03 Blood pressure systolic 124 mmHg 2017-03-03 Blood pressure diastolic 80 mmHg 2017-03-03 MEDICATIONS Medication Instructions Dosage Frequency Start Date End Date Duration Status Metoprolol Tartrate 50MG Orally Twice a day 1/2 tab 12h 30 Active Quetiapine Fumarate 300 MG Orally for anxeity and sleep 1 tablet at bedtime Mar, Active Alprazolam 1MG Orally 2 times a day as needed for anxiety 1 tablet Active Trazodone HCl 150 MG Orally ONE TIME AT BEDTIME FOR SLEEP TAKE 1 TABLET Active Omeprazole 20 mg take 1 capsule (20 mg) by oral route once daily before a meal Apr, Active Gabapentin 800MG Orally Three times [...]
--- OUTSIDE RECORDS SUMMARY | 2017-12-29 16:53 | XMS REPORT ---
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 Name Role Phone SABIHA MAST Unavailable PROBLEMS Type Condition ICD9-CM Code [id number] Code Onset Dates Condition Status SNOMED Code Problem FRANCIS (generalized anxiety disorder) F41.1 Active 77292920 Problem Conversion disorder (or hysterical neurosis, conversion type) F44.9 Active 79930289 Problem Thoracic disc herniation M51.24 Active 610821031 Problem Major depressive disorder in partial remission F32.4 Active 26828895 Problem Restless leg syndrome G25.81 Active 79775634 Problem Mild episode of recurrent major depressive disorder F33.0 Active 298095370 Problem Paroxysmal tachycardia I47.9 Active 14791031 Problem Seizure disorder G40.909 Active 634289643 Problem Constipation, unspecified constipation type K59.00 Active 62987919 Problem Slow transit constipation K59.01 Active 54599134 ALLERGIES No Information ENCOUNTERS Encounter Location Date Diagnosis [facility] [id number] [place] [address] 12216- 1635 Dec, [facility] [id number] [place] [address] 89411- 8772 September, [facility] [id number] [place] [address] 33834- 3487 September, Major depressive disorder in partial remission F32.4 ; FRANCIS ( generalized anxiety disorder) F41.1 and Restless leg syndrome G25.81 [facility] [id number] [place] [address] 49769- 1979 September, [facility] [id number] [place] [address] 58233- 6396 Jul, [facility] [address] [place] [address]- 4866 Jul, Dorsalgia, unspecified M54.9 [facility] [id number] [place] [address] 38310- 8619 Jul, Mild episode of recurrent major depressive disorder F33.0 and FRANCIS (generalized anxiety disorder) F41.1 [facility] [id number] [place] [address] 08893- 5236 May, [facility] [address] 6[address]60 -5777 May, Dysuria R30.0 and Acute cystitis with hematuria N30.01 [facility] [id number] [place] [address] 22270- 8073 Apr, [facility] [id number] [place] [address] 00132- 6663 Apr, Major depressive disorder in partial remission F32.4 and FRANCIS (generalized anxiety disorder) F41.1 [facility] [id number] [place] [address] 58726- 0289 Mar, Paroxysmal tachycardia I47.9 [facility] [id number] [place] [address] 80143- 3764 Mar, Paroxysmal tachycardia I47.9 and Pain of left lower extremity M79.605 [facility] [id number] [place] [address] 08127- 9382 Mar, FRANCIS (generalized anxiety disorder) F41.1 and Major depressive disorder in partial remission F32.4 [facility] [id number] [place] [address] 75268- 1335 Jan, [facility] [id number] [place] [address] 35060- 4009 14 Jan, 2017 [facility] [id number] [place] [address] 42871- 6315 13 Jan, 2017 [facility] [id number] [place] [address] 42188 -6682 Dec, Constipation, unspecified constipation type K59.00 [facility] [id number] [place] [address] 83763- 3896 Dec, [facility] [id number] [place] [address] 01387- 7156 Nov, [facility] [id number] [place] [address] 61124- 0373 Nov, Major depressive disorder in partial remission F32.4 and FRANCIS (generalized anxiety disorder) F41.1 [facility] [id number] [place] [address] 62552 -2077 Oct, Abdominal pain R10.9 and Slow transit constipation K59.01 [facility] [id number] [place] [address] 19173- 3688 Aug, Major depressive disorder in partial remission F32.4 ; FRANCIS ( generalized anxiety disorder) F41.1 ; Conversion disorder (or hysterical neurosis, conversion type) F44.9 ; Dorsalgia, unspecified M54.9 and Long-term use of high-risk medication Z79.899 [facility] [id number] [place] [address] 70993- 1836 Aug, [facility] [id number] [place] [address] 18912- 1181 Jul, Paroxysmal tachycardia I47.9 [facility] [id number] [place] [address] 30228- 8039 Jul, Paroxysmal tachycardia I47.9 [facility] [id number] [place] [address] 28466- 2603 Jun, [facility] [id number] [place] [address] 74492- 4520 Jun, Major depressive disorder in partial remission F32.4 ; FRANCIS ( generalized anxiety disorder) F41.1 and Conversion disorder (or hysterical neurosis, conversion type) F44.9 [facility] [id number] [place] [address] 63939 -2810 May, Pelvic pain R10.2 [facility] [address] 24003 -8351 30 Apr, 2016 Gastroenteritis K52.9 [facility] [address] 61425 -9945 Apr, Blood in urine R31.9 and Acute cystitis with hematuria N30.01 [facility] [address] 93760- 6679 Apr, Major depressive disorder in partial remission F32.4 ; FRANCIS ( generalized anxiety disorder) F41.1 and Conversion disorder (or hysterical neurosis, conversion type) F44.9 [facility] [address] 54098- 3868 Apr, [facility] [address] 14362- 8709 Apr, Abnormal mammogram R92.8 [facility] [address] 17961- 4703 Mar, [facility] [address] 96603- 7164 Mar, Gastroenteritis K52.9 and Seizure disorder G40.909 [facility] [address] 20827- 9778 Dec, [facility] [id number] [place] [address] 65881 -8580 Dec, Other headache syndrome G44.89 [facility] [address] 86404- 9439 Dec, [facility] [address] 06865- 7810 Dec, Thoracic disc herniation M51.24 [facility] [address] 65631- 5571 Dec, [facility] [id number] [address]- 9545 Nov, Major depressive disorder in partial remission F32.4 and FRANCIS (generalized anxiety disorder) F41.1 [facility] [address] [facility] [address] [id number] [address]- 5746 Nov, [facility] [address] [facility] [address] [id number], [place] [address]- 9209 Nov, Dorsalgia, unspecified M54.9 [facility] [address] [facility] [address] [id number], [place] [address]- 9936 Oct, [facility] [id number], [place] [address]- 4925 September, [facility] [id number], [place] [address]- 9312 Aug, [facility] [id number], [place] [address]- 9642 Aug, Major depressive disorder in partial remission F32.4 and FRANCIS (generalized anxiety disorder) F41.1 [facility] [address] [address]- 5958 Aug, [facility] [id number], [place] [address]- 4047 Jul, Abnormal mammogram R92.8 [facility] [id number], [place] [address]- 6045 Jul, [facility] [address] [facility] [address] [id number], [place] [address]- 9206 Jul, [facility] [id number], [place] [address]- 5583 14 Jul, 2015 [facility] [id number], [place] [address]- 2766 Jul, [facility] [id number] [address]- 7888 Jul, [facility] [id number] [place] [address] 54669- 6358 Jul, [facility] [id number] [place] [address] 75380- 7133 Jun, Major depressive disorder in partial remission F32.4 and FRANCIS (generalized anxiety disorder) F41.1 [facility] [id number] [place] [address] 79180- 7677 Jun, [facility] [id number] [place] [address] 081449- 4675 May, [facility] [id number] [place] [address] 059397- 2247 Apr, [facility] [id number] [place] [address] 581137- 4597 Mar, Major depressive disorder, recurrent episode, moderate F33.1 ; PTSD (post-traumatic stress disorder) F43.10 and FRANCIS (generalized anxiety disorder) F41.1 [facility] [id number] [address]- 2607 Mar, [facility] [address], [place] [address]- 6057 Mar, [facility] [address], [place] [address]- 9612 Mar, [facility] [address], [place] [address]- 7744 Mar, [facility] [address] 4143 Jan, [facility] [id number] [place] [address] 92779- 1076 Jan, [facility] [address] 9684 Jan, [facility] [address], [place] [address]- 3967 Jan, Thoracic disc herniation 722.11 [facility] [id number] [address]- 5216 Dec, [facility] [address], [place] [address]- 8156 Dec, [facility] [id number] [place] [address] 04325- 8386 Dec, [facility] [id number] [place] [address] 72757- 4254 Nov, [facility] [id number] [place] [address] 24776- 7537 Nov, Generalized anxiety disorder 300.02 ; Posttraumatic stress disorder 309.81 and Major depressive disorder, recurrent episode, moderate 296.32 [facility] [address], [place] [address]- 4986 Nov, [facility] [address], [place] [address]- 3844 Nov, [facility] [address], [place] [address]- 8136 Oct, [facility] [address], [place] [address]- 4037 Oct, [facility] [address], [place] [address]- 3104 Oct, [facility] [address], [place] [address]- 9055 September, [facility] [address], [place] [address]- 4616 September, [facility] [address], [place] [address]- 8656 14 Aug, 2014 [facility] [address], [place] [address]- 6822 Aug, [facility] [place] [facility] [address] [id number] [place] [address]- 2279 Jul, [facility] [place] [facility] [address] [id number] [place] [address]- 6851 Jul, [facility] [place] [facility] [address] [id number] [place] [address]- 3675 17 Jul, 2014 [facility] [place] [facility] [address] [id number] [place] [address]- 1284 17 Jul, 2014 [facility] [place] [facility] [address] [id number] [place] [address]- 3428 16 Jul, 2014 [facility] [place] [facility] [address] [id number] [place] [address]- 6552 Jul, [facility] [place] [facility] [address] [id number] [place] [address]- 0136 Jul, [facility] [place] [facility] [address] [id number] [place] [address]- 9026 Jul, [facility] [place] [facility] [address] [id number] [place] [address]- 7392 Jul, [facility] [place] [facility] [address] [id number] [place] [address]- 5865 Jul, [facility] [place] [facility] [address] [id number] [place] [address]- 5857 Jun, [facility] [place] [facility] [address] [id number] [place] [address]- 7236 Jun, [facility] [place] [facility] [address] [id number] [place] [address]- 9812 Jun, [facility] [place] [facility] [address] [id number] [place] [address]- 1565 May, [facility] [place] [facility] [address] [id number] [place] [address]- 2978 Apr, [facility] [place] [facility] [address] [id number] [place] [address]- 6126 Apr, [facility] [place] [facility] [address] [id number] [place] [address]- 0614 Apr, [facility] [place] [facility] [address] [id number] [place] [address]- 8088 Apr, [facility] [place] [facility] [address] [id number] [place] [address]- 7111 Apr, [facility] [place] [facility] [address] [id number] [place] [address]- 3485 Apr, [facility] [place] [facility] [address] [id number] [place] [address]- 5183 Apr, [facility] [place] [facility] [address] [id number] [place] [address]- 6817 Apr, [facility] [place] [facility] [address] [id number] [place] [address]- 1002 Mar, [facility] [place] [facility] [address] [id number] [place] [address]- 3754 Mar, [facility] [place] [facility] [address] [id number] [place] [address]- 7602 Mar, [facility] [place] [facility] [address] [id number] [place] [address]- 5734 Mar, [facility] [place] [facility] [address] [id number] [place] [address]- 2829 Mar, [facility] [place] [facility] [address] [id number] [place] [address]- 8678 Mar, [facility] [place] [facility] [address] [id number] [place] [address]- 1139 Mar, [facility] [place] [facility] [address] [id number] [place] [address]- 4430 Mar, [facility] [place] [facility] [address] [id number] [place] [address]- 5896 Mar, [facility] [place] [facility] [address] [id number] [place] [address]- 4159 Mar, [facility] [place] [facility] [address] [id number] [place] [address]- 5727 Mar, [facility] [place] [facility] [address] [id number] [place] [address]- 8752 Mar, [facility] [place] [facility] [address] [id number] [place] [address]- 8102 Mar, [facility] [place] [facility] [address] [id number] [place] [address]- 4524 Mar, [facility] [place] [facility] [address] [id number] [place] [address]- 9407 Mar, [facility] [place] [facility] [address] [id number] [place] [address]- 1225 Mar, [facility] [place] [facility] [address] [id number] [place] [address]- 7007 Mar, [facility] [place] [facility] [address] [id number] [place] [address]- 1970 Jan, 2013 [facility] [place] [facility] [address] [id number], [place] [address]- 9387 Jan, 2013 [facility] [place] [facility] [address] [id number], [place] [address]- 7707 Sep, 2013 [facility] [place] [facility] [address] [id number], [place] [address]- 9587 09 Sep, 2013 [facility] [place] [facility] [address] [id number], [place] [address]- 7414 05 Sep, 2013 [facility] [place] [facility] [address] [id number], [place] [address]- 3392 Sep, 2013 [facility] [place] [facility] [address] [id number], [place] [address]- 7435 05 Sep, 2013 [facility] [place] [facility] [address] [id number], [place] [address]- 6358 05 Jan, 2014 [facility] [address] [id number] [place] [address]- 5157 03 Jan, 2013 [facility] [address] [id number] [place] [address]- 2845 Jan, [facility] [address] [id number] [place] [address]- 8571 Jan, [facility] [address] [id number] [place] [address]- 9162 Jan, [facility] [address] [id number] [place] [address]- 1816 Jan, [facility] [address] [id number] [place] [address]- 4583 Dec, [facility] [address] [id number] [place] [address]- 4506 Dec, [facility] [address] [id number] [place] [address]- 8472 Dec, [facility] [address] [id number] [place] [address]- 6487 Dec, [facility] [address] [id number] [place] [address]- 4628 Dec, [facility] [address] [id number] [place] [address]- 2911 Dec, [facility] [address] [place] [id number] Dec [facility] [address] [place] [id number] Dec [facility] [address] [id number] [place] [address]- 0482 Dec, [facility] [address] [id number] [place] [address]- 8822 Dec, [facility] [address] [id number] [place] [address]- 2546 Dec, [facility] [place] [facility] [address] [id number] [place] [address]- 6535 Dec, [facility] [place] [facility] [address] [id number] [place] [address]- 2109 Nov, [facility] [place] [facility] [address] [id number] [place] [address]- 5142 Nov, [facility] [place] [facility] [address] [id number] [place] [address]- 7706 Nov, [facility] [place] [facility] [address] [id number] [place] [address]- 8123 Nov, [facility] [place] [facility] [address] [id number] [place] [address]- 2153 Nov, [facility] [place] [facility] [address] [id number] [place] [address]- 7212 Nov, [facility] [place] [facility] [address] [id number] [place] [address]- 6448 Nov, [facility] [place] [facility] [address] [id number] [place] [address]- 7489 Nov, [facility] [place] [facility] [address] [id number] [place] [address]- 2166 Nov, [facility] [place] [facility] [address] [id number] [place] [address]- 7319 Nov, [facility] [place] [facility] [address] [id number] [place] [address]- 4973 Nov, [facility] [place] [facility] [address] [id number] [place] [address]- 1598 Nov, [facility] [place] [facility] [address] [id number] [place] [address]- 7795 Nov, [facility] [place] [facility] [address] [id number] [place] [address] Oct, [facility] [place] [facility] [address] [id number] [place] [address] Oct, [facility] [place] [facility] [address] [id number] [place] [address] Oct, [facility] [place] [facility] [address] [id number] [place] [address] Oct, [facility] [place] [facility] [address] [id number] [place] [address] Oct, [facility] [place] [facility] [address] [id number] [place] [address] Oct, [facility] [place] [facility] [address] [id number] [place] [address] Oct, [facility] [place] [facility] [address] [id number] [place] [address] Oct, [facility] [place] [facility] [address] [id number] [place] [address] Oct, [facility] [place] [facility] [address] [id number] [place] [address] Oct, [facility] [place] [facility] [address] [id number] [place] [address] Oct, [facility] [place] [facility] [address] [id number] [place] [address] Oct, [facility] [address] [id number] [place] [address] September, [facility] [place] [facility] [address] [id number] [place] [address] September, [facility] [place] [facility] [address] [id number] [place] [address] September, [facility] [place] [facility] [address] [id number] [place] [address] September, [facility] [place] [facility] [address] [id number] [place] [address] Aug, [facility] [place] [facility] [address] [id number] [place] [address] Aug, [facility] [place] [facility] [address] [id number] [place] [address] Aug, [facility] [place] [facility] [address] [id number] [place] [address] Aug, [facility] [place] [facility] [address] [id number] [place] [address]- [address] Aug, [facility] [place] [facility] [address] [id number] [place] [address] Aug, [facility] [place] [address] [id number] [place] [address]- [address] Aug, [facility] [place] [facility] [address] [id number] [place] [address] Jul, [facility] [address] [id number] [place] [address] Jul, [facility] [address] [id number] [place] [address]- [address] Jul, [facility] [place] [facility] [address] [id number] [place] [address] Jul, [facility] [place] [facility] [address] [id number] [place] [address] Jul, [facility] [address] [id number] [place] [address] Jul, [facility] [place] [address] [id number] [place] [address] Jul, [facility] [place] [address] [id number] [place] [address] Jul, [facility] [place] [facility] [address] [id number] [place] [address] Jul, [facility] [place] [facility] [address] [id number] [place] [address]- [address] 18 Jul, 2013 [facility] [address] [id number] [place] [address]- [address] 18 Jul, 2013 [facility] [place] [facility] [address] [id number] [place] [address]- [address] 18 Jul, 2013 [facility] [place] [facility] [address] [id number] [place] [address]- [address] 14 Jul, 2013 [facility] [address] [id number] [place] [address]- [address] 14 Jul, 2013 [facility] [address] [id number] [place] [address] Jul, [facility] [address] [id number] [place] [address]- [address] Jul, [facility] [address] [id number] [place] [address] Jul, [facility] [address] [id number] [place] [address]- [address] 11 Jul, 2013 [facility] [address] [id number] [place] [address]- [address] Jun, [facility] [address] [id number] [place] [address]- [address] 31 Jun, 2013 [facility] [address] [id number] [place] [address]- [address] Jun, [facility] [address] [id number] [place] [address]- [address] 15 Jun, 2013 [facility] [address] [id number] [place] [address] Jun, [facility] [place] [facility] [address] [id number] [place] [address] 1522 14 Jun, 2013 [facility] [place] [facility] [address] [id number] [place] [address] 3347 14 Jun, 2013 [facility] [address] [id number] [place] [address]- 3480 14 Jun, 2013 [facility] [place] [facility] [address] [id number] [place] [address] 8932 14 Jun, 2013 [facility] [address] [id number] [place] [address]- 4882 14 Jun, 2013 [facility] [place] [facility] [address] [id number] [place] [address] 2244 27 May, 2013 [facility] [address] [id number] [place] [address] 0739 27 May, 2013 [facility] [place] [facility] [address] [id number] [place] [address] 9639 26 May, 2013 [facility] [address] [id number] [place] [address] 4550 19 May, 2013 [facility] [address] [id number] [place] [address] 1300 19 May, 2013 [facility] [place] [facility] [address] [id number] [place] [address]- 6657 16 May, 2013 [facility] [place] [facility] [address] [id number] [place] [address] 0237 16 May, 2013 [facility] [place] [facility] [address] [id number] [place] [address]- 9287 16 May, 2013 [facility] [place] [facility] [address] [id number], [place] [address] 4[address] 16 May, 2013 [facility] [place] [facility] [address] [id number] [place] [address]- 7551 13 May, 2013 [facility] [place] [facility] [address] [id number] [place] [address]- 7856 13 May, 2013 [facility] [place] [facility] [address] [id number] [place] [address]- 1430 11 May, 2013 [facility] [place] [facility] [address] [id number] [place] [address]- 1383 20 Apr, 2013 [facility] [place] [facility] [address] [id number] [place] [address]- 9296 18 Apr, 2013 [facility] [place] [facility] [address] [id number] [place] [address]- 2614 18 Apr, 2013 [facility] [place] [facility] [address] [id number] [place] [address]- 9366 13 Apr, 2013 [facility] [place] [facility] [address] [id number] [place] [address]- 8522 13 Apr, 2013 [facility] [place] [facility] [address] [id number] [place] [address]- 4101 08 Apr, 2013 [facility] [place] [facility] [address] [id number] [place] [address]- 4004 08 Apr, 2013 [facility] [place] [facility] [address] [id number] [place] [address]- 6001 07 Apr, 2013 [facility] [place] [facility] [address] [id number] [place] [address]- 4221 07 Apr, 2013 [facility] [place] [facility] [address] [id number] [place] [address]- 7971 07 Apr, 2013 [facility] [place] [facility] [address] [facility] [id number] [place] [address] 2750 Apr, [facility] [place] [facility] [address] [id number] [place] [address]- 6912 Mar, [facility] [place] [facility] [address] [id number], [place] [address] 2657 Mar, [facility] [place] [facility] [address] [id number] [place] [address] 3700 Mar, [facility] [place] [facility] [address] [id number] [place] [address]- 6353 Mar, [facility] [place] [facility] [address] [facility] [id number], [place] [address] 2210 Mar, [facility] [place] [facility] [address] [id number] [place] [address]- 2151 Mar, [facility] [place] [facility] [address] [id number] [place] [address]- 5657 Mar, [facility] [place] [facility] [address] [id number] [place] [address]- 0273 Mar, [facility] [place] [facility] [address] [id number] [place] [address]- 0720 Mar, [facility] [place] [facility] [address] [id number] [place] [address]- 1398 Mar, [facility] [place] [facility] [address] [id number] [place] [address]- 5364 Mar, [facility] [place] [facility] [address] [id number] [place] [address]- 1282 Mar, [facility] [place] [facility] [address] [id number] [place] [address]- 2295 30 Jan, 2013 [facility] [place] [facility] [address] [id number] [place] [address]- 6303 Jan, [facility] [place] [facility] [address] [id number] [place] [address]- 6836 Jan, [facility] [place] [facility] [address] [id number] [place] [address]- 4247 Jan, [facility] [place] [facility] [address] [id number] [place] [address]- 1292 Dec, [facility] [place] [facility] [address] [id number] [place] [address]- 7389 Dec, [facility] [place] [facility] [address] [id number] [place] [address]- 2542 Dec, [facility] [place] [facility] [address] [id number] [place] [address]- 3946 Dec, [facility] [place] [facility] [address] [id number] [place] [address]- 4676 Dec, [facility] [place] [facility] [address] [id number] [place] [address]- 0751 Dec, [facility] [place] [facility] [address] [id number] [place] [address]- 0016 Dec, [facility] [place] [facility] [address] [id number] [place] [address]- 0236 Dec, [facility] [place] [facility] [address] [id number] [place] [address]- 1292 Dec, [facility] [place] [facility] [address] [id number] [place] [address]- 5135 Nov, [facility] [place] [facility] [address] [id number] [place] [address]- 0959 Nov, [facility] [place] [facility] [address] [id number] [place] [address]- 9378 Nov, [facility] [place] [facility] [address] [id number] [place] [address]- 7781 Nov, [facility] [place] [facility] [address] [id number] [place] [address]- 4539 Nov, [facility] [place] [facility] [address] [id number] [place] [address]- 1688 Nov, [facility] [place] [facility] [address] [id number] [place] [address]- 4636 Nov, [facility] [place] [facility] [address] [id number] [place] [address]- 9018 Nov, [facility] [place] [facility] [address] [id number] [place] [address]- 6623 Oct, [facility] [place] [facility] [address] [id number] [place] [address]- 7365 Oct, [facility] [place] [facility] [address] [id number] [place] [address]- 2681 Oct, [facility] [place] [facility] [address] [id number] [place] [address]- 1615 25 Oct, 2012 [facility] [address] [id number] [place] [address]- 6025 Oct, [facility] [address] [id number] [place] [address]- 6961 Oct, [facility] [address] [id number] [place] [address]- 4723 Oct, [facility] [address] [id number] [place] [address]- 8630 Oct, [facility] [address] [id number] [place] [address]- 6457 Oct, [facility] [address] [id number] [place] [address]- 1934 18 Oct, 2012 [facility] [address] [id number] [place] [address]- 0831 17 Oct, 2012 [facility] [address] [id number] [place] [address]- 5094 14 Oct, 2012 [facility] [address] [id number] [place] [address]- 7150 07 Oct, 2012 [facility] [address] [id number] [place] [address]- 6510 30 Sep, 2012 [facility] [address] [id number] [place] [address]- 2111 September, [facility] [address] [id number] [place] [address]- 8532 September, [facility] [address] [id number] [place] [address]- 1869 Aug, [facility] [place] [facility] [address] [id number] [place] [address]- 3636 24 Aug, 2012 [facility] [address] [id number] [place] [address]- 3855 18 Aug, 2012 [facility] [place] [facility] [address] [id number] [place] [address]- 8231 18 Aug, 2012 [facility] [place] [facility] [address] [id number] [place] [address]- 9139 Aug, [facility] [address] [id number] [place] [address]- 0495 Aug, [facility] [place] [facility] [address] [id number] [place] [address]- 7067 Aug, [facility] [address] [id number] [place] [address]- 9560 Jul, [facility] [place] [facility] [address] [id number] [place] [address]- 4288 Jul, [facility] [address] [id number] [place] [address]- 9712 Jul, [facility] [place] [facility] [address] [id number] [place] [address]- 7881 Jul, [facility] [address] [id number] [place] [address]- 7308 Jul, [facility] [place] [facility] [address] [id number] [place] [address]- 7784 Jul, [facility] [place] [facility] [address] [id number] [place] [address]- 6477 Jul, [facility] [place] [facility] [address] [id number], [place] [address]- 6902 Jul, [facility] [place] [facility] [address] [id number] [place] [address]- 9593 Jul, [facility] [place] [facility] [address] [id number] [place] [address]- 6480 Jul, [facility] [place] [facility] [address] [id number] [place] [address]- 8407 Jul, [facility] [place] [facility] [address] [id number] [place] [address]- 3130 06 Jul, 2012 [facility] [address] [id number] [place] [address]- 6436 Jul, [facility] [address] [id number] [place] [address]- 3932 24 Jun, 2012 [facility] [address] [id number] [place] [address]- 3604 Jun, [facility] [address] [id number] [place] [address]- 9162 19 Jun, 2012 [facility] [address] [id number] [place] [address]- 7928 17 Jun, 2012 [facility] [address] [id number] [place] [address]- 3779 15 Jun, 2012 [facility] [address] [id number] [place] [address]- 7634 14 Jun, 2012 [facility] [address] [id number] [place] [address]- 3255 08 Jun, 2012 [facility] [address] [id number] [place] [address]- 7165 May, [facility] [address] [id number] [place] [address]- 5399 May, [facility] [address] [id number] [place] [address] 2546 May, [facility] [address] [id number] [place] [address]- 254 May, [facility] [address] [id number] [place] [address]- 0565 27 May, 2012 [facility] [address] [id number] [place] [address]- 2543 24 May, 2012 [facility] [address] [id number] [place] [address]- 3119 May, [facility] [place] [facility] [address] [id number] [place] [address]- 8412 May, [facility] [place] [facility] [address] [id number] [place] [address]- 1386 May, [facility] [place] [facility] [address] [id number] [place] [address]- 5557 May, [facility] [place] [facility] [address] [id number] [place] [address]- 1248 Apr, [facility] [place] [facility] [address] [id number] [place] [address]- 3563 Apr, [facility] [place] [facility] [address] [id number] [place] [address]- 7829 Apr, [facility] [place] [facility] [address] [id number] [place] [address]- 2284 Apr, [facility] [place] [facility] [address] [id number] [place] [address]- 8201 Apr, [facility] [place] [facility] [address] [id number] [place] [address]- 5905 Apr, [facility] [place] [facility] [address] [id number] [place] [address]- 7096 Apr, [facility] [place] [facility] [address] [id number] [place] [address]- 6022 Apr, [facility] [place] [facility] [address] [id number], [place] [address]- 7925 Apr, [facility] [place] [facility] [address] [id number] [place] [address]- 0973 Apr, [facility] [place] [facility] [address] [id number] [place] [address]- 6643 Apr, [facility] [place] [facility] [address] [id number] [place] [address]- 0607 Apr, [facility] [place] [facility] [address] [id number], [place] [address]- 1181 Mar, 2011 [facility] [place] [facility] [address] [id number] [place] [address]- 0525 Mar, 2011 [facility] [place] [facility] [address] [id number], [place] [address]- 3938 Mar, 2011 [facility] [place] [facility] [address] [id number] [place] [address]- 9244 Mar, 2011 [facility] [place] [facility] [address] [id number], [place] [address]- 4880 Mar, 2011 [facility] [place] [facility] [address] [id number] [place] [address]- 2652 Mar, 2011 [facility] [place] [facility] [address] [id number] [place] [address]- 2857 Mar, 2011 [facility] [place] [facility] [address] [id number], [place] [address]- 7602 Mar, 2011 [facility] [place] [facility] [address] [id number], [place] [address]- 4481 Mar, 2011 [facility] [place] [facility] [address] [id number], [place] [address]- 7324 Mar, 2011 [facility] [place] [facility] [address] [id number], [place] [address]- 2772 Mar, 2011 [facility] [place] [facility] [address] [id number], [place] [address]- 1466 Mar, 2011 [facility] [place] [facility] [address] [id number], [place] [address]- 5984 Mar, [facility] [place] [facility] [address] [id number], [place] [address]- 7735 Mar, 2011 [facility] [place] [facility] [address] [facility] [id number], [place] [address]- 6936 Mar, 2011 [facility] [place] [facility] [address] [facility] [id number], [place] [address]- 1481 Mar, 2011 [facility] [place] [facility] [address] [id number] [place] [address]- 9609 25 Jan, 2011 [facility] [place] [facility] [address] [id number] [place] [address]- 0836 24 Jan, 2011 [facility] [place] [facility] [address] [id number] [place] [address] 2546 22 Jan, 2011 [facility] [place] [facility] [address] [id number] [place] [address] 2546 22 Jan, 2011 [facility] [place] [facility] [address] [id number] [place] [address] 2549 21 Jan, 2011 [facility] [place] [facility] [address] [id number] [place] [address]- 8066 18 Jan, 2011 [facility] [place] [facility] [address] [id number] [place] [address]- 2547 14 Jan, 2011 [facility] [place] [facility] [address] [id number] [place] [address]- 5494 07 Jan, 2011 [facility] [place] [facility] [address] [id number] [place] [address]- 3873 15 Dec, 2011 [facility] [place] [facility] [address] [id number] [place] [address]- 3355 10 Dec, 2011 [facility] [place] [facility] [address] [id number] [place] [address]- 4514 Dec, [facility] [place] [facility] [address] [id number] [place] [address]- 3681 Dec, [facility] [place] [facility] [address] [id number] [place] [address]- 2542 Dec, [facility] [place] [facility] [address] [id number] [place] [address]- 0205 Dec, [facility] [place] [facility] [address] [id number] [place] [address]- 2726 Dec, [facility] [place] [facility] [address] [id number] [place] [address]- 5867 Nov, [facility] [place] [facility] [address] [id number] [place] [address]- 9937 06 Oct, 2011 [facility] [place] [facility] [address] [id number] [place] [address]- 8170 05 Aug, 2011 [facility] [place] [facility] [address] [id number] [place] [address]- 3302 22 Jul, 2011 [facility] [place] [facility] [address] [id number] [place] [address]- 7517 19 Jul, 2011 [facility] [place] [facility] [address] [id number] [place] [address]- 8554 16 Jul, 2011 [facility] [place] [facility] [address] [id number] [place] [address]- 5534 14 Jul, 2011 [facility] [place] [facility] [address] [facility] [id number] [place] [address]- 5739 Jul, [facility] [place] [facility] [address] [id number] [place] [address]- 7377 Jul, [facility] [place] [facility] [address] [id number] [place] [address]- 4498 Jul, [facility] [place] [facility] [address] [id number] [place] [address]- 7929 15 Jul, 2011 [facility] [place] [facility] [address] [id number] [place] [address]- 9525 Jul, [facility] [place] [facility] [address] [id number] [place] [address]- 6790 03 Jul, 2011 [facility] [place] [facility] [address] [id number] [place] [address]- 5785 Jul, [facility] [place] [facility] [address] [id number] [place] [address]- 2921 Jun, [facility] [place] [facility] [address] [id number] [place] [address]- 2080 Jun, [facility] [place] [facility] [address] [id number] [place] [address]- 7067 13 Jun, 2011 [facility] [address] [id number] [place] [address]- 9530 Jun, [facility] [address] [id number] [place] [address]- 0294 Jun, [facility] [address] [id number] [place] [address]- 7242 Jun, [facility] [address] [id number] [place] [address]- 4671 Jun, [facility] [address] [id number] [place] [address]- 0743 May, [facility] [address] [id number] [place] [address]- 9175 May, [facility] [address] [id number] [place] [address] May, [facility] [address] [id number] [place] [address] May, [facility] [address] [id number] [place] [address] May, [facility] [address] [id number] [place] [address] May, [facility] [address] [id number] [place] [address] May, [facility] [address] [id number] [place] [address] May, [facility] [address] [id number] [place] [address] 06 May, 2011 [facility] [address] [id number] [place] [address] May, [facility] [address] [id number] [place] [address] Apr, [facility] [address] [facility] [address] [id number], [place] [address] Apr, [facility] [address] [id number], [place] [address] Apr, [facility] [address] [id number], [place] [address] Apr, [facility] [address] [id number] [address] Mar, [facility] [address] [id number] [address] Mar, [facility] [address] [id number] [address] Mar, [facility] [address] [id number], [place] [address] Mar, IMMUNIZATIONS No Known Immunizations SOCIAL HISTORY Never Assessed REASON FOR VISIT Lab (walk-in) PLAN OF CARE VITAL SIGNS MEDICATIONS Unknown Medications RESULTS Name Result Date Reference Range LIPID PANEL 2017-03-24 Cholesterol, Total 379 100-199 Triglycerides 382 0-149 HDL Cholesterol 41 >39 VLDL Cholesterol Droian 76 5-40 LDL Cholesterol Calc 262 0-99 Comment: CMP 2017-03-24 Glucose, Serum 98 65-99 BUN 14 6-24 Creatinine, Serum 0.92 0.57-1.00 eGFR If NonAfricn Am 74 >59 eGFR If Africn Am 85 >59 BUN/Creatinine Ratio 15 9-23 Sodium, Serum 141 134-144 Potassium, Serum 4.5 3.5-5.2 Chloride, Serum 100 96-106 Carbon Dioxide, Total 24 18-29 Calcium, Serum 10.0 8.7-10.2 Protein, Total, Serum 7.6 6.0-8.5 Albumin, Serum 4.6 3.5-5.5 Globulin, Total 3.0 1.5-4.5 A/G Ratio 1.5 1.2-2.2 Bilirubin, Total 0.3 0.0-1.2 Alkaline Phosphatase, S 68 39-117 AST (SGOT) 10 0-40 ALT (SGPT) 10 0-32 TSH 2017-03-24 TSH 1.840 0.450-4.500 PROCEDURES Procedure Date Ordered Result Body Site LAB NOT BILLED [facility] Mar 24, 2017 VENIPCOSTA, ROUTINE* Mar 24, 2017 INSTRUCTIONS MEDICATIONS ADMINISTERED No Known Medications MEDICAL [...]
--- OUTSIDE RECORDS SUMMARY | 2017-12-29 16:56 | XMS REPORT ---
Author Author NARENDRA GRULLON 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 Name Role Phone MITCHEL NARENDRA Unavailable PROBLEMS Type Condition ICD9-CM Code [id number] Code Onset Dates Condition Status SNOMED Code Problem FRANCIS (generalized anxiety disorder) F41.1 Active 85833613 Problem Conversion disorder (or hysterical neurosis, conversion type) F44.9 Active 98643933 Problem Thoracic disc herniation M51.24 Active 219380367 Problem Major depressive disorder in partial remission F32.4 Active 23182893 Problem Restless leg syndrome G25.81 Active 51924094 Problem Mild episode of recurrent major depressive disorder F33.0 Active 486482726 Problem Paroxysmal tachycardia I47.9 Active 71464430 Problem Seizure disorder G40.909 Active 735849774 Problem Constipation, unspecified constipation type K59.00 Active 45943698 Problem Slow transit constipation K59.01 Active 12451739 ALLERGIES Substance Reaction Event Type Date Status Macrobid hives Drug Allergy May, Active Levaquin hives Drug Allergy May, Active Tramadol Unknown Drug Allergy May, Active Ambien 10 Mg Tablet Sleep Walking and Sleep Driving. Eating while asleep. lg Non Drug Allergy May, Active ENCOUNTERS Encounter Location Date Diagnosis [facility] [address] [facility] [id number], [place] [address] Dec, [facility] [address] [facility] [id number], [place] [address] September, [facility] [address] [id number] [address] September, [facility] [address] [facility] [place] [id number], [place] [address] September, Major depressive disorder in partial remission F32.4 ; FRANCIS ( generalized anxiety disorder) F41.1 and Restless leg syndrome G25.81 [facility] [id number] [place] [address] 55776[address] 8761 September, [facility] [id number] [place] [address] 92156- 7639 Jul, [facility] [id number] [place] [address] 44190- 2617 Jul, Dorsalgia, unspecified M54.9 [facility] [id number] [place] [address] 84561- 3843 Jul, Mild episode of recurrent major depressive disorder F33.0 and FRANCIS (generalized anxiety disorder) F41.1 [facility] [facility] [id number] [place] [address] 69714- 9568 May, [facility] [id number] [place] [address] 42546 -0631 May, Dysuria R30.0 and Acute cystitis with hematuria N30.01 [facility] [id number] [place] [address] 45476- 5858 Apr, [facility] [id number] [place] [address] 17018- 3092 Apr, Major depressive disorder in partial remission F32.4 and FRANCIS (generalized anxiety disorder) F41.1 [place] [id number] [place] [address] 65550- 7866 Mar, Paroxysmal tachycardia I47.9 [facility] [id number] [place] [address] 69061- 0694 Mar, Paroxysmal tachycardia I47.9 and Pain of left lower extremity M79.605 [facility] [id number] [place] [address] 87043- 5916 Mar, FRANCIS (generalized anxiety disorder) F41.1 and Major depressive disorder in partial remission F32.4 [facility] [facility] [id number] [place] [address] 17819- 3849 Jan, [facility] [id number] [place] [address] 64987- 9384 14 Jan, 2017 [facility] [id number] [place] [address] 44680- 6313 13 Jan, 2017 [facility] [id number] [place] [address] 99237 -5278 Dec, Constipation, unspecified constipation type K59.00 [facility] [id number] [place] [address] 10574- 2927 Dec, [place] [facility] [id number] [place] [address] 20293- 9037 Nov, [facility] [facility] [id number] [place] [address] 03172- 8586 Nov, Major depressive disorder in partial remission F32.4 and FRANCIS (generalized anxiety disorder) F41.1 [facility] [id number] [place] [address] 45250 -3527 Oct, Abdominal pain R10.9 and Slow transit constipation K59.01 [facility] [id number] [place] [address] 07281- 5425 Aug, Major depressive disorder in partial remission F32.4 ; FRANCIS ( generalized anxiety disorder) F41.1 ; Conversion disorder (or hysterical neurosis, conversion type) F44.9 ; Dorsalgia, unspecified M54.9 and Long-term use of high-risk medication Z79.899 [facility] [id number] [place] [address] 35841- 9038 Aug, [place] [id number] [place] [address] 27288- 0294 15 Jul, 2016 Paroxysmal tachycardia I47.9 [facility] [id number] [place] [address] 41409- 2971 10 Jul, 2016 Paroxysmal tachycardia I47.9 [facility] [facility] [id number] [place] [address] 55629- 8237 Jun, [place] [facility] [id number] [place] [address] 28440- 4199 Jun, Major depressive disorder in partial remission F32.4 ; FRANCIS ( generalized anxiety disorder) F41.1 and Conversion disorder (or hysterical neurosis, conversion type) F44.9 [facility] [address] [address] May, Pelvic pain R10.2 [facility] [address] [address]55 -[address] Apr, Gastroenteritis K52.9 [facility] [address] [address]82 -2596 Apr, Blood in urine R31.9 and Acute cystitis with hematuria N30.01 [place] [address] 50278- 8377 Apr, Major depressive disorder in partial remission F32.4 ; FRANCIS ( generalized anxiety disorder) F41.1 and Conversion disorder (or hysterical neurosis, conversion type) F44.9 [place] [id number] [place] [address] 97291- 5625 Apr, [place] [facility] [id number] [place] [address] 00321- 4123 Apr, Abnormal mammogram R92.8 [facility] [facility] [id number] [place] [address] 61348- 6803 Mar, [facility] [id number] [place] [address] 20812- 6980 Mar, Gastroenteritis K52.9 and Seizure disorder G40.909 [facility] [id number] [place] [address] 97867- 3951 Dec, [facility] [id number] [place] [address] 59058 -8248 Dec, Other headache syndrome G44.89 [facility] [address], [place] [address] 5170 Dec, [facility] [id number] [place] [address] 92704- 8466 Dec, Thoracic disc herniation M51.24 [facility] [id number] [place] [address] 08498- 2936 Dec, [facility] [id number] [place] [address] 68620- 6552 Nov, Major depressive disorder in partial remission F32.4 and FRANCIS (generalized anxiety disorder) F41.1 [facility] [id number] [place] [address] 26098- 3956 Nov, [facility] [id number] [place] [address] 57978- 2894 Nov, Dorsalgia, unspecified M54.9 [facility] [id number] [place] [address] 59010- 5592 Oct, [facility] [id number] [place] [address] 00502- 4304 September, [facility] [id number] [place] [address] 21145- 5066 Aug, [facility] [address] [place] [address] 87529- 0435 Aug, Major depressive disorder in partial remission F32.4 and FRANCIS (generalized anxiety disorder) F41.1 [facility] [address], [place] [address]- 7416 Aug, [facility] [id number] [place] [address] 63764- 4626 Jul, Abnormal mammogram R92.8 [facility] [address], [place] [address]- 2675 Jul, [facility] [id number] [address]- 6420 15 Jul, 2015 [facility] [address], [place] [address]- 3816 14 Jul, 2015 [facility] [address], [place] [address]- 9188 Jul, [facility] [address], [place] [address]- 2549 Jul, [facility] [id number] [place] [address] 71524- 7565 Jul, [facility] [id number] [place] [address] 388963- 3790 Jun, Major depressive disorder in partial remission F32.4 and FRANCIS (generalized anxiety disorder) F41.1 [facility] [id number] [place] [address] 74005- 2825 Jun, [facility] [id number] [address]- 9120 May, [facility] [address], [place] [address]- 0677 Apr, [facility] [address], [place] [address]- 6402 Mar, Major depressive disorder, recurrent episode, moderate F33.1 ; PTSD (post-traumatic stress disorder) F43.10 and FRANCIS (generalized anxiety disorder) F41.1 [facility] [address], [place] [address]- 4051 Mar, [facility] [address] 4171 Mar, [facility] [address] 2917 Mar, [facility] [address], [place] [address]- 7748 Mar, [facility] [address], [place] [address]- 9674 23 Jan, 2015 [facility] [place] [address], [place] [address]- 7372 15 Jan, 2015 [facility] [place] [address], [place] [address]- 8522 15 Jan, 2015 [facility] [id number] [place] [address] 63752- 8430 14 Jan, 2015 Thoracic disc herniation 722.11 [facility] [id number] [place] [address] 25714- 5476 Dec, [facility] [id number] [place] [address] 25266- 4742 Dec, [facility] [address], [place] [address]- 3782 Dec, [facility] [id number] [place] [address] 24358- 0912 Nov, [facility] [address], [place] [address]- 6158 Nov, Generalized anxiety disorder 300.02 ; Posttraumatic stress disorder 309.81 and Major depressive disorder, recurrent episode, moderate 296.32 [facility] [address], [place] [address]- 7369 Nov, [facility] [address], [place] [address]- 6698 Nov, [facility] [address], [place] [address]- 9118 Oct, [facility] [id number] [address]- 7265 Oct, [facility] [address], [place] [address]- 5223 Oct, [facility] [address], [place] [address]- 4235 September, [facility] [place] [facility] [address] [id number] [place] [address]- 9488 September, [facility] [place] [facility] [address] [id number] [place] [address]- 8595 Aug, [facility] [place] [facility] [address] [id number] [place] [address]- 7354 Aug, [facility] [place] [facility] [address] [id number] [place] [address]- 6363 Jul, [facility] [place] [facility] [address] [id number] [place] [address]- 8471 Jul, [facility] [place] [facility] [address] [id number] [place] [address]- 4466 Jul, [facility] [place] [facility] [address] [id number] [place] [address]- 0549 Jul, [facility] [place] [facility] [address] [id number] [place] [address]- 7727 Jul, [facility] [place] [facility] [address] [id number] [place] [address]- 6041 Jul, [facility] [place] [facility] [address] [id number] [place] [address]- 2770 Jul, [facility] [place] [facility] [address] [id number] [place] [address]- 7798 Jul, [facility] [place] [facility] [address] [id number] [place] [address]- 8824 Jul, [facility] [place] [facility] [address] [id number] [place] [address]- 5124 Jul, [facility] [place] [facility] [address] [id number] [place] 7388 Jun, [facility] [place] [facility] [address] [id number] [place] [address]- 8039 Jun, [facility] [place] [facility] [address] [id number] [place] [address]- 5944 Jun, [facility] [place] [facility] [address] [id number] [place] [address]- 6873 May, [facility] [place] [facility] [address] [id number] [place] [address]- 8603 Apr, [facility] [place] [facility] [address] [id number] [place] [address]- 6433 Apr, [facility] [place] [facility] [address] [id number] [place] [address]- 0211 Apr, [facility] [place] [facility] [address] [id number] [place] [address]- 8366 Apr, [facility] [place] [facility] [address] [id number] [place] [address]- 5479 Apr, [facility] [place] [facility] [address] [id number] [place] [address]- 2390 Apr, [facility] [place] [facility] [address] [id number] [place] [address]- 0183 Apr, [facility] [place] [facility] [address] [id number] [place] [address]- 5967 Apr, [facility] [place] [facility] [address] [id number] [place] [address]- 9395 Mar, [facility] [place] [facility] [address] [id number] [place] [address]- 0624 Mar, [facility] [place] [facility] [address] [id number] [place] [address]- 7135 Mar, [facility] [place] [facility] [address] [id number] [place] [address]- 4002 Mar, [facility] [place] [facility] [address] [id number] [place] [address]- 0471 Mar, [facility] [place] [facility] [address] [id number] [place] [address]- 7644 Mar, [facility] [place] [facility] [address] [id number] [place] [address]- 8473 24 Mar, 2014 [facility] [place] [facility] [address] [id number] [place] [address]- 4839 Mar, [facility] [place] [facility] [address] [id number] [place] [address]- 9877 Mar, [facility] [place] [facility] [address] [id number] [place] [address]- 7435 Mar, [facility] [place] [facility] [address] [id number] [place] [address]- 2854 Mar, [facility] [place] [facility] [address] [id number] [place] [address]- 5950 Mar, [facility] [place] [facility] [address] [id number] [place] [address]- 5158 Mar, [facility] [place] [facility] [address] [id number], [place] [address]- 0642 Mar, [facility] [place] [facility] [address] [id number] [place] [address]- 3273 Mar, [facility] [place] [facility] [address] [id number], [place] [address]- 7772 Mar, [facility] [place] [facility] [address] [id number], [place] [address]- 5906 Mar, [facility] [place] [facility] [address] [id number], [place] [address]- 6692 Jan, [facility] [place] [facility] [address] [id number] [place] [address]- 0782 Jan, [facility] [place] [facility] [address] [id number], [place] [address]- 2437 Jan, [facility] [place] [facility] [address] [id number], [place] [address]- 5162 Jan, [facility] [place] [facility] [address] [id number] [place] [address]- 4800 05 Sep, 2013 [facility] [address] [id number] [place] [address]- 2656 05 Sep, 2013 [facility] [address] [id number] [place] [address]- 3636 Jan, 2013 [facility] [address] [id number] [place] [address]- 4256 05 Jan, 2013 [facility] [address] [id number] [place] [address]- 9626 03 Jan, 2013 [facility] [address] [id number] [place] [address]- 3173 Jan, 2013 [facility] [address] [id number] [place] [address]- 4159 Jan, 2013 [facility] [address] [id number] [place] [address]- 0814 Jan, 2013 [facility] [address] [id number] [place] [address]- 7146 Jan, 2013 [facility] [address] [id number] [place] [address]- 5429 Dec, [facility] [address] [id number] [place] [address]- 9040 Dec, [facility] [address] [id number] [place] [address]- 3456 Dec, [facility] [address] [id number], [place] [address]- 2545 Dec, [facility] [address] [id number], [place] [address]- 9838 Dec, [facility] [address] [id number], [place] [address]- 7644 Dec, [facility] [address] [place] [id number] Dec [facility] [address] [place] [id number] Dec [facility] [place] [facility] [address] [id number] [place] [address]- 4634 Dec, [facility] [place] [facility] [address] [id number] [place] [address]- 0047 Dec, [facility] [place] [facility] [address] [id number] [place] [address]- 2777 Dec, [facility] [place] [facility] [address] [id number] [place] [address]- 1357 Dec, [facility] [place] [facility] [address] [id number] [place] [address]- 1694 Nov, [facility] [place] [facility] [address] [id number] [place] [address]- 7210 Nov, [facility] [place] [facility] [address] [id number] [place] [address]- 5698 Nov, [facility] [place] [facility] [address] [id number] [place] [address]- 9995 Nov, [facility] [place] [facility] [address] [id number] [place] [address]- 3763 Nov, [facility] [place] [facility] [address] [id number] [place] [address]- 9482 Nov, [facility] [place] [facility] [address] [id number] [place] [address]- 3131 Nov, [facility] [place] [facility] [address] [id number] [place] [address]- 0952 Nov, [facility] [place] [facility] [address] [id number] [place] [address]- 9307 Nov, [facility] [place] [facility] [address] [id number] [place] [address]- 1471 Nov, [facility] [place] [facility] [address] [id number] [place] [address]- 4776 Nov, [facility] [place] [facility] [address] [id number] [place] [address]- 0631 Nov, [facility] [place] [facility] [address] [id number] [place] [address] Nov, [facility] [place] [facility] [address] [id number] [place] [address] Oct, [facility] [place] [facility] [address] [id number] [place] [address] Oct, [facility] [place] [facility] [address] [id number] [place] [address] Oct, [facility] [place] [facility] [address] [id number] [place] [address] Oct, [facility] [place] [facility] [address] [id number] [place] [address] Oct, [facility] [place] [facility] [address] [id number] [place] [address] Oct, [facility] [place] [facility] [address] [id number] [place] [address] Oct, [facility] [place] [facility] [address] [id number] [place] [address] Oct, [facility] [place] [facility] [address] [id number] [place] [address] Oct, [facility] [place] [facility] [address] [id number] [place] [address] Oct, [facility] [place] [facility] [address] [id number] [place] [address] Oct, [facility] [place] [facility] [address] [id number] [place] [address] Oct, [facility] [place] [facility] [address] [id number] [place] [address] September, [facility] [place] [facility] [address] [id number] [place] [address] September, [facility] [place] [facility] [address] [id number] [place] [address] September, [facility] [place] [facility] [address] [id number] [place] [address] September, [facility] [place] [facility] [address] [id number] [place] [address] Aug, [facility] [place] [facility] [address] [id number] [place] [address] Aug, [facility] [place] [facility] [address] [id number] [place] [address] Aug, [facility] [place] [facility] [address] [id number] [place] [address] Aug, [facility] [place] [facility] [address] [id number] [place] [address] Aug, [facility] [place] [facility] [address] [id number] [place] [address] Aug, [facility] [place] [facility] [address] [id number] [place] [address] Aug, [facility] [place] [facility] [address] [id number] [place] [address] Jul, [facility] [place] [facility] [address] [id number] [place] [address] Jul, [facility] [place] [facility] [address] [id number] [place] [address] Jul, [facility] [place] [facility] [address] [id number] [place] [address] Jul, [facility] [place] [facility] [address] [id number] [place] [address] Jul, [facility] [place] [facility] [address] [id number] [place] [address] Jul, [facility] [place] [facility] [address] [id number] [place] [address]- [address] 18 Jul, 2013 [facility] [place] [facility] [address] [id number] [place] [address]- [address] 18 Jul, 2013 [facility] [place] [facility] [address] [id number] [place] [address]- [address] 18 Jul, 2013 [facility] [place] [facility] [address] [id number] [place] [address]- [address] 18 Jul, 2013 [facility] [place] [facility] [address] [id number] [place] [address]- [address] 18 Jul, 2013 [facility] [place] [facility] [address] [id number] [place] [address]- [address] 18 Jul, 2013 [facility] [place] [facility] [address] [id number] [place] [address]- [address] 14 Jul, 2013 [facility] [place] [facility] [address] [id number] [place] [address]- [address] 14 Jul, 2013 [facility] [place] [facility] [address] [id number] [place] [address]- [address] 11 Jul, 2013 [facility] [place] [facility] [address] [id number] [place] [address] Jul, [facility] [place] [facility] [address] [facility] [place] [id number] [place] [address] Jul, [facility] [place] [facility] [address] [id number] [place] [address] Jul, [facility] [place] [facility] [address] [id number] [place] [address]- [address] Jun, [facility] [place] [facility] [address] [id number] [place] [address] Jun, [facility] [place] [facility] [address] [id number] [place] [address] Jun, [facility] [place] [facility] [address] [id number] [place] [address] 1542 15 Jun, 2013 [facility] [address] [id number] [place] [address] 0256 14 Jun, 2013 [facility] [place] [facility] [address] [id number] [place] [address]- 4501 14 Jun, 2013 [facility] [place] [facility] [address] [id number] [place] [address]- 8487 14 Jun, 2013 [facility] [place] [facility] [address] [id number] [place] [address]- 8489 14 Jun, 2013 [facility] [place] [facility] [address] [id number] [place] [address]- 5673 14 Jun, 2013 [facility] [place] [facility] [address] [id number] [place] [address]- 2746 14 Jun, 2013 [facility] [place] [facility] [address] [id number] [place] [address]- 9706 27 May, 2013 [facility] [place] [facility] [address] [id number] [place] [address]- 6724 27 May, 2013 [facility] [place] [facility] [address] [id number] [place] [address]- 6201 26 May, 2013 [facility] [place] [facility] [address] [id number] [place] [address]- 5488 19 May, 2013 [facility] [place] [facility] [address] [id number], [place] [address] 4337 19 May, 2013 [facility] [place] [facility] [address] [id number], [place] [address] 6713 16 May, 2013 [facility] [place] [facility] [address] [id number] [place] [address]- 2299 16 May, 2013 [facility] [place] [facility] [address] [id number] [place] [address]- 8237 16 May, 2013 [facility] [place] [facility] [address] [id number] [place] [address] 16 May, 2013 [facility] [place] [facility] [address] [id number] [place] [address]- 1877 13 May, 2013 [facility] [address] [id number] [place] [address]- 5051 13 May, 2013 [facility] [place] [facility] [address] [id number] [place] [address]- 8952 11 May, 2013 [facility] [address] [id number] [place] [address]- 9208 20 Apr, 2013 [facility] [place] [facility] [address] [id number] [place] [address]- 9911 18 Apr, 2013 [facility] [place] [facility] [address] [id number] [place] [address]- 9660 18 Apr, 2013 [facility] [place] [facility] [address] [id number] [place] [address]- 1029 Apr, [facility] [address] [facility] [place] [id number] [place] [address]- 2595 Apr, [facility] [place] [facility] [address] [id number] [place] [address]- 1086 08 Apr, 2013 [facility] [place] [facility] [address] [facility] [place] [id number] [place] [address]- 5592 08 Apr, 2013 [facility] [place] [facility] [address] [facility] [place] [id number][place] [address]- 9631 07 Apr, 2013 [facility] [place] [facility] [address] [id number] [place] [address]- 5855 07 Apr, 2013 [facility] [place] [facility] [address] [id number], [place] [address]- 9880 Apr, [facility] [place] [facility] [address] [id number] [place] [address]- 3497 Apr, [facility] [place] [facility] [address] [facility] [place] [id number], [place] [address]- 5016 Mar, [facility] [place] [facility] [address] [id number], [place] [address]- 1229 Mar, [facility] [place] [facility] [address] [id number] [place] [address]- 2283 Mar, [facility] [place] [facility] [address] [id number] [place] [address]- 4057 Mar, [facility] [place] [facility] [address] [id number] [place] [address]- 4461 Mar, [facility] [place] [facility] [address] [id number] [place] [address]- 7608 Mar, [facility] [place] [facility] [address] [id number] [place] [address]- 5406 Mar, [facility] [place] [facility] [address] [id number] [place] [address]- 0707 Mar, [facility] [place] [facility] [address] [id number] [place] [address]- 0622 Mar, [facility] [place] [facility] [address] [id number] [place] [address]- 5246 Mar, [facility] [place] [facility] [address] [id number] [place] [address]- 9573 Mar, [facility] [place] [facility] [address] [id number] [place] [address]- 4474 Mar, [facility] [place] [facility] [address] [id number] [place] [address]- 6554 30 Jan, 2013 [facility] [place] [facility] [address] [id number], [place] [address]- 5008 25 Jan, 2013 [facility] [place] [facility] [address] [id number] [place] [address]- 6187 20 Jan, 2013 [facility] [place] [facility] [address] [id number] [place] [address]- 3413 10 Jan, 2013 [facility] [place] [facility] [address] [id number] [place] [address]- 4519 Dec, [facility] [place] [facility] [address] [id number] [place] [address]- 8558 Dec, [facility] [place] [facility] [address] [id number] [place] [address]- 7342 Dec, [facility] [place] [facility] [address] [id number] [place] [address]- 4203 Dec, [facility] [place] [facility] [address] [id number] [place] [address]- 7419 Dec, [facility] [place] [facility] [address] [id number] [place] [address]- 1735 Dec, [facility] [place] [facility] [address] [id number] [place] [address]- 8908 Dec, [facility] [place] [facility] [address] [id number] [place] [address]- 6537 Dec, [facility] [place] [facility] [address] [id number] [place] [address]- 9946 Dec, [facility] [place] [facility] [address] [id number] [place] [address]- 8353 Nov, [facility] [place] [facility] [address] [id number] [place] [address]- 2279 Nov, [facility] [place] [facility] [address] [id number] [place] [address]- 1205 Nov, [facility] [place] [facility] [address] [id number] [place] [address]- 2851 Nov, [facility] [place] [facility] [address] [id number] [place] [address]- 4893 Nov, [facility] [place] [facility] [address] [id number] [place] [address]- 3349 Nov, [facility] [place] [facility] [address] [id number] [place] [address]- 4821 Nov, [facility] [place] [facility] [address] [id number] [place] [address]- 1728 Nov, [facility] [place] [facility] [address] [id number] [place] [address]- 2599 27 Oct, 2012 [facility] [address] [id number] [place] [address]- 1034 Oct, [facility] [place] [facility] [address] [id number] [place] [address]- 1422 Oct, [facility] [address] [id number] [place] [address]- 1608 Oct, [facility] [place] [facility] [address] [id number] [place] [address]- 2834 Oct, [facility] [address] [id number] [place] [address]- 0109 Oct, [facility] [address] [id number] [place] [address]- 5439 Oct, [facility] [address] [id number] [place] [address]- 9611 Oct, [facility] [address] [id number] [place] [address]- 5413 Oct, [facility] [place] [facility] [address] [id number] [place] [address]- 1293 18 Oct, 2012 [facility] [address] [id number] [place] [address]- 6152 17 Oct, 2012 [facility] [place] [facility] [address] [id number] [place] [address]- 9011 14 Oct, 2012 [facility] [place] [facility] [address] [id number] [place] [address]- 0542 07 Oct, 2012 [facility] [place] [facility] [address] [id number] [place] [address]- 9986 September, [facility] [place] [facility] [address] [id number] [place] [address]- 8873 September, [facility] [place] [facility] [address] [id number] [place] [address]- 3469 September, [facility] [address] [id number] [place] [address]- 1316 Aug, [facility] [place] [facility] [address] [id number] [place] [address]- 0276 Aug, [facility] [address] [id number] [place] [address]- 4139 Aug, [facility] [place] [facility] [address] [id number] [place] [address]- 2108 Aug, [facility] [address] [id number] [place] [address]- 6549 Aug, [facility] [place] [facility] [address] [id number] [place] [address]- 1234 Aug, [facility] [address] [id number] [place] [address]- 7688 Aug, [facility] [address] [id number] [place] [address]- 6804 Jul, [facility] [place] [facility] [address] [id number] [place] [address]- 8321 Jul, [facility] [place] [facility] [address] [id number] [place] [address]- 3132 Jul, [facility] [place] [facility] [address] [id number] [place] [address]- 6307 Jul, [facility] [place] [facility] [address] [id number], [place] [address]- 6662 Jul, [facility] [place] [facility] [address] [id number] [place] [address]- 1532 Jul, [facility] [place] [facility] [address] [id number] [place] [address]- 9321 Jul, [facility] [place] [facility] [address] [id number] [place] [address]- 7037 Jul, [facility] [place] [facility] [address] [id number] [place] [address]- 7234 20 Jul, 2012 [facility] [address] [id number] [place] [address]- 3406 Jul, [facility] [address] [id number] [place] [address] 2546 Jul, [facility] [address] [id number] [place] [address]- 2126 Jul, [facility] [address] [id number] [place] [address] 2548 Jul, [facility] [address] [id number] [place] [address]- 3467 24 Jun, 2012 [facility] [address] [id number] [place] [address]- 5630 Jun, [facility] [address] [id number] [place] [address]- 1167 Jun, [facility] [address] [id number] [place] [address]- 6841 17 Jun, 2012 [facility] [address] [id number] [place] [address]- 8606 15 Jun, 2012 [facility] [address] [id number] [place] [address]- 0122 14 Jun, 2012 [facility] [address] [id number] [place] [address]- 6882 Jun, [facility] [address] [id number] [place] [address]- 8862 May, [facility] [address] [id number] [place] [address]- 9752 May, [facility] [address] [id number] [place] [address]- 7156 May, [facility] [address] [id number] [place] 3897 May, [facility] [place] [facility] [address] [id number] [place] [address]- 3837 May, [facility] [place] [facility] [address] [id number] [place] [address]- 3110 May, [facility] [place] [facility] [address] [id number] [place] [address]- 9456 May, [facility] [place] [facility] [address] [id number] [place] [address]- 6375 May, [facility] [place] [facility] [address] [id number] [place] [address]- 6143 May, [facility] [place] [facility] [address] [id number] [place] [address]- 6406 May, [facility] [place] [facility] [address] [id number] [place] [address]- 1050 Apr, [facility] [place] [facility] [address] [id number] [place] [address]- 6549 Apr, [facility] [place] [facility] [address] [id number] [place] [address]- 8766 Apr, [facility] [place] [facility] [address] [id number], [place] [address]- 6445 Apr, [facility] [place] [facility] [address] [id number], [place] [address]- 5074 Apr, [facility] [place] [facility] [address] [id number], [place] [address]- 8749 Apr, [facility] [place] [facility] [address] [id number] [place] [address]- 0753 Apr, [facility] [place] [facility] [address] [id number], [place] [address]- 5365 Apr, [facility] [place] [facility] [address] [id number], [place] [address]- 2410 Apr, [facility] [place] [facility] [address] [id number], [place] [address]- 4970 Apr, [facility] [place] [facility] [address] [id number] [place] [address]- 9991 Apr, [facility] [place] [facility] [address] [facility] [place] [id number], [place] [address]- 1481 Apr, [facility] [place] [facility] [address] [facility] [place] [id number] [place] [address]- 0777 Mar, 2011 [facility] [place] [facility] [address] [facility] [place] [id number] [place] [address]- 5642 Mar, 2011 [facility] [place] [facility] [address] [facility] [place] [id number] [place] [address], [place] [address]- 8702 Mar, 2011 [facility] [place] [facility] [address] [facility] [place] [id number] [place] [address]- 1322 Mar, 2011 [facility] [place] [facility] [address] [facility] [place] [id number] [place] [address]- 4619 Mar, 2011 [facility] [place] [facility] [address] [facility] [place] [id number], [place] [address]- 4309 Mar, 2011 [facility] [place] [facility] [address] [facility] [place] [id number], [place] [address]- 2482 Mar, 2011 [facility] [place] [facility] [address] [facility] [place] [id number], [place] [address]- 3186 30 Mar, 2011 [facility] [place] [facility] [address] [facility] [place] [id number], [place] [address]- 1652 Mar, 2011 [facility] [place] [facility] [address] [facility] [place] [id number], [place] [address]- 1210 Mar, 2011 [facility] [place] [facility] [address] [facility] [place] [id number], [place] [address]- 1588 16 Mar, 2011 [facility] [place] [facility] [address] [facility] [place] [id number], [place] [address]- 4736 Mar, 2011 [facility] [place] [facility] [address] [facility] [place] [id number], [place] [address]- 2062 Mar, 2011 [facility] [place] [facility] [address] [id number] [place] [address]- 4227 12 Mar, 2012 [facility] [place] [facility] [address] [id number] [place] [address]- 5486 03 Mar, 2012 [facility] [place] [facility] [address] [id number] [place] [address]- 3076 02 Mar, 2012 [facility] [place] [facility] [address] [id number] [place] [address]- 7896 25 Jan, 2012 [facility] [place] [facility] [address] [id number] [place] [address]- 4824 24 Jan, 2012 [facility] [place] [facility] [address] [id number] [place] [address]- 6941 22 Jan, 2012 [facility] [place] [facility] [address] [id number] [place] [address]- 3224 22 Jan, 2012 [facility] [place] [facility] [address] [id number] [place] [address]- 7676 21 Jan, 2012 [facility] [place] [facility] [address] [id number] [place] [address]- 9213 18 Jan, 2012 [facility] [place] [facility] [address] [id number] [place] [address]- 3904 14 Jan, 2012 [facility] [place] [facility] [address] [id number] [place] [address]- 8438 07 Jan, 2012 [facility] [place] [facility] [address] [id number] [place] [address]- 2263 15 Dec, 2011 [facility] [place] [facility] [address] [id number] [place] [address]- 2324 10 Dec, 2011 [facility] [place] [facility] [address] [id number] [place] [address]- 9985 09 Dec, 2011 [facility] [place] [facility] [address] [id number] [place] [address]- 8284 08 Dec, 2011 [facility] [place] [facility] [address] [id number] [place] [address]- 2055 Dec, [facility] [place] [facility] [address] [id number] [place] [address]- 7981 Dec, [facility] [place] [facility] [address] [id number] [place] [address]- 2399 Dec, [facility] [place] [facility] [address] [id number] [place] [address]- 3279 Nov, [facility] [place] [facility] [address] [id number] [place] [address]- 5170 Oct, [facility] [place] [facility] [address] [id number] [place] [address]- 6522 Aug, [facility] [place] [facility] [address] [id number] [place] [address]- 2050 Jul, [facility] [place] [facility] [address] [id number] [place] [address]- 8125 Jul, [facility] [place] [facility] [address] [id number] [place] [address]- 5314 16 Jul, 2011 [facility] [place] [facility] [address] [id number] [place] [address]- 1235 14 Jul, 2011 [facility] [place] [facility] [address] [id number] [place] [address]- 0169 Jul, [facility] [place] [facility] [address] [id number] [place] [address]- 2700 Jul, [facility] [place] [facility] [address] [id number] [place] [address]- 0022 Jul, [facility] [place] [facility] [address] [id number] [place] [address]- 6847 15 Jul, 2011 [facility] [place] [facility] [address] [id number] [place] [address]- 9903 13 Jul, 2011 [facility] [place] [facility] [address] [id number] [place] [address]- 2546 Jul, [facility] [place] [facility] [address] [id number] [place] [address] Jul, [facility] [address] [id number] [place] [address] Jun, [facility] [address] [id number] [place] [address] Jun, [facility] [address] [id number] [place] [address] Jun, [facility] [address] [id number] [place] [address] Jun, [facility] [address] [id number] [place] [address] Jun, [facility] [address] [id number] [place] [address] Jun, [facility] [address] [id number] [place] [address] Jun, [facility] [address] [id number] [place] [address] May, [facility] [address] [id number] [place] [address] May, [facility] [address] [id number] [place] [address] May, [facility] [address] [id number] [place] [address] 14 May, 2011 [facility] [address] [id number] [place] [address] May, [facility] [address] [id number] [place] [address] May, [facility] [address] [id number] [place] [address] May, [facility] [address] [id number] [place] [address] May, [facility] [id number] [address] May, [facility] [id number] [place] [address] May, [facility] [id number] [place] [address] Apr, [facility] [id number] [place] [address] Apr, [facility] [id number] [place] [address] Apr, [facility] [id number] [place] [address] Apr, [facility] [id number] [place] [address] Mar, [facility] [id number] [place] [address] Mar, [facility] [id number] [place] [address] Mar, [facility] [id number] [address] Mar, IMMUNIZATIONS No Known Immunizations SOCIAL HISTORY Never Assessed REASON FOR VISIT vaginal pain. pain with intercourse. even sitting here right now...complaining of vaginal pain. denies seeing any blood with urination. no menstural periods. imelda, pain has been there for 3 weeks. PLAN OF CARE Activity Details Follow Up prn Reason: VITAL SIGNS Height 62 in 2017-05-01 Weight 161.4 lbs 2017-05-01 Temperature 97.7 degrees Fahrenheit 2017-05-01 Heart Rate 88 bpm 2017-05-01 Respiratory Rate 20 2017-05-01 BMI 29.52 kg/m2 2017-05-01 Blood pressure systolic 132 mmHg 2017-05-01 Blood pressure diastolic 78 mmHg 2017-05-01 MEDICATIONS Medication Instructions Dosage Frequency Start Date End Date Duration Status Bactrim DS 800-160 MG Orally Twice a day 1 tablet 12h May, 4 May, 2017 3 days Active Omeprazole 20 mg take 1 capsule (20 mg) by oral route once daily before a meal Apr, Not-Taking Gabapentin 800MG Orally Three times a day 1.5 tablet 8h Active Alprazolam 1MG Orally 2 times a day as needed for anxiety 1 tablet 30 days Active Quetiapine Fumarate 300 MG Orally for anxeity and sleep 1 tablet at bedtime Mar, Active ProAir HFA 90 mcg/actuation 2 puffs by Inhalation route 4 times per dayPRN Apr, Not-Taking Hydrocodone-Acetaminophen 10-325 MG Orally every 6 hrs 1 tablet as needed 6h Not-Taking Polyethylene Glycol 3350 - Orally take if no BM in 2 days then take daily until stools are soft 1 scoop Dec, Not-Taking TraZODone HCl ER Active RESULTS No Results PROCEDURES Procedure Date Ordered Result Body Site URINALYSIS, AUTO, W/O SCOPE May 01, [address] [facility] May 01, 2017 INSTRUCTIONS MEDICATIONS ADMINISTERED No Known Medications [...]
--- OUTSIDE RECORDS SUMMARY | 2017-12-29 16:58 | XMS REPORT ---
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 Role Phone SANDIROSAA Unavailable PROBLEMS Type Condition ICD9-CM Code HVU62-PV Code Onset Dates Condition Status SNOMED Code Problem FRANCIS (generalized anxiety disorder) F41.1 Active 37614321 Problem Conversion disorder (or hysterical neurosis, conversion type) F44.9 Active 99538476 Problem Thoracic disc herniation M51.24 Active 081675070 Problem Major depressive disorder in partial remission F32.4 Active 60122940 Problem Restless leg syndrome G25.81 Active 92471441 Problem Mild episode of recurrent major depressive disorder F33.0 Active 285356366 Problem Paroxysmal tachycardia I47.9 Active 56309087 Problem Seizure disorder G40.909 Active 328123192 Problem Constipation, unspecified constipation type K59.00 Active 52018099 Problem Slow transit constipation K59.01 Active 74228736 ALLERGIES No Information ENCOUNTERS Encounter Location Date Diagnosis [facility] [id number] [place] [address] 23501- 1537 Dec, [facility] [id number] [place] [address] 96143- 0088 September, [facility] [id number] [place] [address] 46784- 9841 September, [facility] [id number] [place] [address] 02106- 3719 September, Major depressive disorder in partial remission F32.4 ; FRANCIS ( generalized anxiety disorder) F41.1 and Restless leg syndrome G25.81 [facility] [id number] [place] [address] 12613- 3954 September, [facility] [address] [place] [address]- 0955 Jul, [facility] [id number] [place] [address] 10633- 4614 Jul, Dorsalgia, unspecified M54.9 [facility] [id number] [place] [address] 91476- 7708 06 Jul, 2017 Mild episode of recurrent major depressive disorder F33.0 and FRANCIS (generalized anxiety disorder) F41.1 [facility] [id number] [place] [address] 59260- 8421 May, [facility] [id number] [place] [address] 38914 -9568 May, Dysuria R30.0 and Acute cystitis with hematuria N30.01 [facility] [id number] [place] [address] 84884- 1195 Apr, [facility] [address] 16934- 7024 Apr, Major depressive disorder in partial remission F32.4 and FRANCIS (generalized anxiety disorder) F41.1 [facility] [id number] [place] [address] 48569- 9377 Mar, Paroxysmal tachycardia I47.9 [facility] [id number] [place] [address] 63521- 2848 Mar, Paroxysmal tachycardia I47.9 and Pain of left lower extremity M79.605 [facility] [id number] [place] [address] 73447- 8744 Mar, FRANCIS (generalized anxiety disorder) F41.1 and Major depressive disorder in partial remission F32.4 [facility] [id number] [place] [address] 87432- 3235 Jan, [facility] [id number] [place] [address] 18622- 5474 14 Jan, 2017 [facility] [id number] [place] [address] 43698- 0137 Jan, [facility] [address] [address] Dec, Constipation, unspecified constipation type K59.00 [facility] [id number] [place] [address] 48111- 6012 Dec, [facility] [id number] [place] [address] 23069- 8751 Nov, [facility] [id number] [place] [address] 62214- 5105 Nov, Major depressive disorder in partial remission F32.4 and FRANCIS (generalized anxiety disorder) F41.[address] [facility] [id number] [place] [address] 86317 -7743 Oct, Abdominal pain R10.9 and Slow transit constipation K59.01 [facility] [id number] [place] [address] 07532- 2104 Aug, Major depressive disorder in partial remission F32.4 ; FRANCIS ( generalized anxiety disorder) F41.1 ; Conversion disorder (or hysterical neurosis, conversion type) F44.9 ; Dorsalgia, unspecified M54.9 and Long-term use of high-risk medication Z79.899 [facility] [address] [address]- 4038 Aug, [facility] [id number] [place] [address] 84551- 3827 Jul, Paroxysmal tachycardia I47.9 [facility] [address] [place] [address] 40441- 1338 Jul, Paroxysmal tachycardia I47.9 [facility] [id number] [place] [address] 07202- 1100 Jun, [facility] [address] [place] [address] 89561- 7589 Jun, Major depressive disorder in partial remission F32.4 ; FRANCIS ( generalized anxiety disorder) F41.1 and Conversion disorder (or hysterical neurosis, conversion type) F44.9 [facility] [address] 64571 -4822 May, Pelvic pain R10.2 [facility] [address] 24242 -4121 Apr, Gastroenteritis K52.9 [facility] [address] 88441 -8416 Apr, Blood in urine R31.9 and Acute cystitis with hematuria N30.01 [facility] [address] 41449- 1467 Apr, Major depressive disorder in partial remission F32.4 ; FRANCIS ( generalized anxiety disorder) F41.1 and Conversion disorder (or hysterical neurosis, conversion type) F44.9 [facility] [address] 76971- 3769 Apr, [facility] [address] 62215- 5398 Apr, Abnormal mammogram R92.8 [facility] [address] 91215- 1804 Mar, [facility] [address] 33129- 9971 Mar, Gastroenteritis K52.9 and Seizure disorder G40.909 [facility] [address] 84569- 5490 Dec, [facility] [address] 68484 -1262 Dec, Other headache syndrome G44.89 [facility] [address] 76770- 1955 Dec, [facility] [address] 14251- 3896 Dec, Thoracic disc herniation M51.24 [facility] [address] [address]- 6238 Dec, [facility] [id number] [place] [address] 01344- 4397 Nov, Major depressive disorder in partial remission F32.4 and FRANCIS (generalized anxiety disorder) F41.1 [facility] [id number] [place] [address] 08501- 4320 Nov, [facility] [id number] [place] [address] 17276- 2245 Nov, Dorsalgia, unspecified M54.9 [facility] [id number] [place] [address] 49170- 6246 Oct, [facility] [id number] [place] [address] 87389- 7213 September, [facility] [id number] [place] [address] 72563- 5419 Aug, [facility] [id number] [place] [address] 64042- 1662 Aug, Major depressive disorder in partial remission F32.4 and FRANCIS (generalized anxiety disorder) F41.1 [facility] [address] [address]- 0717 Aug, [facility] [id number] [place] [address] 27086- 9663 Jul, Abnormal mammogram R92.8 [facility] [id number] [address]- 4101 Jul, [facility] [id number] [place] [address] 05139- 0867 Jul, [facility] [address] [address]- 6854 14 Jul, 2015 [facility] [address] [address]- 6992 Jul, [facility] [address] [address]- 8786 Jul, [facility] [id number] [place] [address] 73659- 6896 Jul, [facility] [id number] [place] [address] 71947- 2711 Jun, Major depressive disorder in partial remission F32.4 and FRANCIS (generalized anxiety disorder) F41.1 [facility] [id number] [place] [address] 91473- 3319 Jun, [facility] [id number] [place] [address] 21422- 6971 May, [facility] [id number] [place] [address] 459083- 4626 Apr, [facility] [id number] [place] [address] 68645- 2593 Mar, Major depressive disorder, recurrent episode, moderate F33.1 ; PTSD (post-traumatic stress disorder) F43.10 and FRANCIS (generalized anxiety disorder) F41.1 [facility] [address] [address]- 6072 Mar, [facility] [address] [address]- 2456 Mar, [facility] [address] [address]- 9133 Mar, [facility] [id number] [place] [address] 326737- 7176 Mar, [facility] [address] 2416 Jan, [facility] [address] 1641 15 Jan, 2015 [facility] [address] [address]- 1049 15 Jan, 2015 [facility] [address] [address]- 1219 14 Jan, 2015 Thoracic disc herniation 722.11 [facility] [address] [address]- 3962 Dec, [facility] [id number] [place] [address] 40588- 7406 Dec, [facility] [address]- 0608 Dec, [facility] [id number] [place] [address] 58162- 8255 Nov, [facility] [address] [place] [address] 22988- 5645 Nov, Generalized anxiety disorder 300.02 ; Posttraumatic stress disorder 309.81 and Major depressive disorder, recurrent episode, moderate 296.32 [facility] [address] [address]- 4254 Nov, [facility] [address] [address]- 7492 Nov, [facility] [address] [address]- 8311 Oct, [facility] [address] [address]- 2240 05 Oct, 2014 [facility] [address] [address]- 1433 Oct, [facility] [address]- 9397 September, [facility] [address] [address]- 4332 September, [facility] [address] [address]- 7424 14 Aug, 2014 [facility] [place] [facility] [address] [id number] [place] [address]- 8588 Aug, [facility] [place] [facility] [address] [id number] [place] [address]- 7144 Jul, [facility] [place] [facility] [address] [id number] [place]35 Jul, [facility] [place] [facility] [address] [id number] [place] [address]- 3641 Jul, [facility] [place] [facility] [address] [id number] [place] [address]- 6566 17 Jul, 2014 [facility] [place] [facility] [address] [id number] [place] [address]- 7020 16 Jul, 2014 [facility] [place] [facility] [address] [id number] [place] [address]- 6357 Jul, [facility] [place] [facility] [address] [id number] [place] [address]- 6446 Jul, [facility] [place] [facility] [address] [id number] [place] [address]- 9652 Jul, [facility] [place] [facility] [address] [id number] [place] [address]- 7963 Jul, [facility] [place] [facility] [address] [id number] [place] [address]- 2022 Jul, [facility] [place] [facility] [address] [id number] [place] [address]- 6025 Jun, [facility] [place] [facility] [address] [id number] [place] [address]- 1500 Jun, [facility] [place] [facility] [address] [id number] [place] [address]- 1935 Jun, [facility] [place] [facility] [address] [id number] [place] [address]- 7941 May, [facility] [place] [facility] [address] [id number] [place] [address]- 8446 Apr, [facility] [place] [facility] [address] [id number] [place] [address]- 6295 Apr, [facility] [place] [facility] [address] [id number] [place] [address]- 1245 Apr, [facility] [place] [facility] [address] [id number] [place] [address]- 6228 Apr, [facility] [place] [facility] [address] [id number] [place] [address]- 8717 Apr, [facility] [place] [facility] [address] [id number] [place] [address]- 4380 Apr, [facility] [place] [facility] [address] [id number] [place] [address]- 3765 Apr, [facility] [place] [facility] [address] [id number] [place] [address]- 2720 Apr, [facility] [place] [facility] [address] [id number] [place] [address]- 0161 Mar, [facility] [place] [facility] [address] [id number] [place] [address]- 3379 Mar, [facility] [place] [facility] [address] [id number] [place] [address]- 3987 Mar, [facility] [place] [facility] [address] [id number] [place] [address]- 4846 Mar, [facility] [place] [facility] [address] [id number] [place] [address]- 9202 Mar, [facility] [place] [facility] [address] [id number] [place] [address]- 8633 Mar, [facility] [place] [facility] [address] [id number] [place] [address]- 5714 Mar, [facility] [place] [facility] [address] [id number] [place] [address]- 4485 Mar, [facility] [place] [facility] [address] [id number] [place] [address]- 2598 23 Mar, 2014 [facility] [place] [facility] [address] [id number] [place] [address]- 6942 Mar, [facility] [place] [facility] [address] [id number] [place] [address]- 9763 17 Mar, 2014 [facility] [place] [facility] [address] [id number] [place] [address]- 8344 Mar, [facility] [place] [facility] [address] [id number] [place] [address]- 1160 14 Mar, 2014 [facility] [place] [facility] [address] [id number] [place] [address]- 4875 Mar, [facility] [place] [facility] [address] [id number] [place] [address]- 4385 Mar, [facility] [place] [facility] [address] [id number] [place] [address]- 4517 Mar, [facility] [place] [facility] [address] [id number] [place] [address]- 6454 Mar, [facility] [place] [facility] [address] [id number] [place] [address]- 5675 Jan, 2013 [facility] [place] [facility] [address] [id number] [place] [address]- 4575 19 Jan, 2013 [facility] [place] [facility] [address] [id number] [place] [address]- 6501 09 Sep, 2013 [facility] [place] [facility] [address] [id number] [place] [address]- 7704 09 Sep, 2013 [facility] [place] [facility] [address] [id number] [place] [address]- 2118 05 Sep, 2013 [facility] [place] [facility] [address] [id number] [place] [address]- 7686 05 Sep, 2013 [facility] [place] [facility] [address] [id number] [place] [address]- 6004 05 Jan, 2013 [facility] [address] [id number] [place] [address]- 0756 05 Jan, 2013 [facility] [address] [id number] [place] [address]- 6334 Jan, 2013 [facility] [address] [id number] [place] [address]- 5783 Jan, 2013 [facility] [address] [id number] [place] [address]- 7190 Jan, 2013 [facility] [address] [id number] [place] [address]- 1644 Jan, 2013 [facility] [address] [id number] [place] [address]- 7808 Jan, 2013 [facility] [address] [id number] [place] [address]- 8768 Dec, [facility] [address] [id number] [place] [address]- 2773 Dec, [facility] [address] [id number] [place] [address]- 6925 Dec, [facility] [address] [id number] [place] [address]- 0873 Dec, [facility] [address] [id number] [place] [address]- 0035 Dec, [facility] [address] [id number] [place] [address]- 9481 Dec, [facility] [id number] Dec [facility] [id number] Dec [facility] [address] [id number] [place] [address]- 4622 Dec, [facility] [address] [id number] [place] [address]- 7377 Dec, [facility] [place] [facility] [address] [id number] [place] [address]- 0313 Dec, [facility] [place] [facility] [address] [id number] [place]248 Dec, [facility] [place] [facility] [address] [id number] [place] [address]- 4350 Nov, [facility] [place] [facility] [address] [id number] [place] [address]- 4295 Nov, [facility] [place] [facility] [address] [id number] [place] [address]- 5364 Nov, [facility] [place] [facility] [address] [id number] [place] [address]- 1186 Nov, [facility] [place] [facility] [address] [id number] [place] [address]- 5248 Nov, [facility] [place] [facility] [address] [id number] [place] [address]- 0351 Nov, [facility] [place] [facility] [address] [id number] [place] [address]- 0684 Nov, [facility] [place] [facility] [address] [id number] [place] [address]- 7339 Nov, [facility] [place] [facility] [address] [id number] [place] [address]- 0254 Nov, [facility] [place] [facility] [address] [id number] [place] [address]- 3149 Nov, [facility] [place] [facility] [address] [id number] [place] [address]- 1200 Nov, [facility] [place] [facility] [address] [id number] [place] [address]- 8968 Nov, [facility] [place] [facility] [address] [id number] [place] [address]- 1001 Nov, [facility] [place] [facility] [address] [id number] [place] [address]- 7654 Oct, [facility] [place] [facility] [address] [id number] [place] [address]- 2939 Oct, [facility] [place] [facility] [address] [id number] [place] [address]- 3446 Oct, [facility] [place] [facility] [address] [id number] [place] [address]- 3910 Oct, [facility] [place] [facility] [address] [id number] [place] [address]- 4934 Oct, [facility] [place] [facility] [address] [id number] [place] [address]- 1904 Oct, [facility] [place] [facility] [address] [id number] [place] [address]- 7597 Oct, [facility] [place] [facility] [address] [id number] [place] [address]- 8281 Oct, [facility] [place] [facility] [address] [id number] [place] [address]- 5874 Oct, [facility] [place] [facility] [address] [id number] [place] [address]- 4469 Oct, [facility] [place] [facility] [address] [id number] [place] [address]- 7431 Oct, [facility] [place] [facility] [address] [id number] [place] [address]- 6434 Oct, [facility] [place] [facility] [address] [id number] [place] [address]- 0333 September, [facility] [place] [facility] [address] [id number] [place] [address]- 7175 September, [facility] [place] [facility] [address] [id number] [place] [address]- 2103 September, [facility] [place] [facility] [address] [id number] [place] [address] September, [facility] [place] [facility] [address] [id number] [place] [address] Aug, [facility] [place] [facility] [address] [id number] [place] [address] Aug, [facility] [place] [facility] [address] [id number] [place] [address] Aug, [facility] [place] [facility] [address] [id number] [place] [address] Aug, [facility] [place] [facility] [address] [id number] [place] [address] Aug, [facility] [place] [facility] [address] [id number] [place] [address] Aug, [facility] [place] [facility] [address] [id number] [place] [address] Aug, [facility] [place] [facility] [address] [id number] [place] [address] Jul, [facility] [place] [facility] [address] [id number] [place] [address] Jul, [facility] [place] [facility] [address] [id number] [place] [address] Jul, [facility] [place] [facility] [address] [id number] [place] [address] Jul, [facility] [place] [facility] [address] [id number] [place] [address] Jul, [facility] [place] [facility] [address] [id number] [place] [address] Jul, [facility] [place] [facility] [address] [id number] [place] [address] Jul, [facility] [place] [facility] [address] [id number] [place] [address] Jul, [facility] [place] [facility] [address] [id number] [place] [address] 18 Jul, 2013 [facility] [place] [facility] [address] [id number] [place] [address] 18 Jul, 2013 [facility] [place] [facility] [address] [id number] [place] [address] 18 Jul, 2013 [facility] [place] [facility] [address] [id number] [place] [address] 18 Jul, 2013 [facility] [place] [facility] [address] [id number] [place] [address] 14 Jul, 2013 [facility] [place] [facility] [address] [id number] [place] [address] 14 Jul, 2013 [facility] [place] [facility] [address] [id number] [place] [address] Jul, [facility] [place] [facility] [address] [id number] [place] [address] Jul, [facility] [place] [facility] [address] [id number] [place] [address] Jul, [facility] [place] [facility] [address] [id number] [place] [address] Jul, [facility] [place] [facility] [address] [facility] [id number] [place] [address] Jun, [facility] [place] [facility] [address] [id number] [place] [address] Jun, [facility] [place] [facility] [address] [id number] [place] [address] Jun, [facility] [place] [facility] [address] [id number] [place] [address] Jun, [facility] [place] [facility] [address] [id number] [place] [address] Jun, [facility] [place] [facility] [address] [id number] [place] [address] Jun, [facility] [address] [id number] [place] [address] 14 Jun, 2013 [facility] [place] [facility] [address] [id number] [place] [address] 14 Jun, 2013 [facility] [place] [facility] [address] [id number] [place] [address] 14 Jun, 2013 [facility] [place] [facility] [address] [id number] [place] [address] 14 Jun, 2013 [facility] [address] [id number] [place] [address] 27 May, 2013 [facility] [place] [facility] [address] [id number] [place] [address] 27 May, 2013 [facility] [place] [facility] [address] [id number] [place] [address] 26 May, 2013 [facility] [place] [facility] [address] [id number] [place] [address] 19 May, 2013 [facility] [place] [facility] [address] [id number] [place] [address] 19 May, 2013 [facility] [place] [facility] [address] [id number] [place] [address] 7156 16 May, 2013 [facility] [place] [facility] [address] [id number] [place] [address]- 2771 16 May, 2013 [facility] [place] [facility] [address] [id number] [place] [address] 16 May, 2013 [facility] [place] [facility] [address] [id number] [place] [address] 16 May, 2013 [facility] [place] [facility] [address] [id number] [place] [address] 4840 13 May, 2013 [facility] [place] [facility] [address] [id number] [place] [address]- 8514 13 May, 2013 [facility] [place] [facility] [address] [id number] [place] [address]- 6060 11 May, 2013 [facility] [place] [facility] [address] [id number] [place] [address]- 0389 20 Apr, 2013 [facility] [place] [facility] [address] [id number] [place] [address]- 7799 18 Apr, 2013 [facility] [place] [facility] [address] [id number] [place] [address]- 9687 18 Apr, 2013 [facility] [place] [facility] [address] [id number] [place] [address]- 1208 13 Apr, 2013 [facility] [place] [facility] [address] [id number] [place] [address]- 7431 13 Apr, 2013 [facility] [place] [facility] [address] [id number] [place] [address] 08 Apr, 2013 [facility] [place] [facility] [address] [id number] [place] [address]- 9455 08 Apr, 2013 [facility] [place] [facility] [address] [id number] [place] [address]- 9486 07 Apr, 2013 [facility] [place] [facility] [address] [id number] [place] [address]- 9686 07 Apr, 2013 [facility] [place] [facility] [address] [facility] [id number] [place] [address]- 3566 Apr, [facility] [place] [facility] [address] [id number] [place] [address]- 1786 Apr, [facility] [place] [facility] [address] [id number] [place] [address] 1290 Mar, [facility] [place] [facility] [address] [id number] [place] [address]- 0882 Mar, [facility] [place] [facility] [address] [facility] [id number] [place] [address]- 2527 Mar, [facility] [place] [facility] [address] [facility] [id number] [place] [address]- 5911 Mar, [facility] [place] [facility] [address] [id number] [place] [address]- 8163 Mar, [facility] [place] [facility] [address] [id number] [place] [address]- 6069 Mar, [facility] [place] [facility] [address] [id number] [place] [address]- 4653 Mar, [facility] [place] [facility] [address] [id number] [place] [address]- 5366 Mar, [facility] [place] [facility] [address] [id number] [place] [address]- 6631 Mar, [facility] [place] [facility] [address] [id number] [place] [address]- 3701 Mar, [facility] [place] [facility] [address] [id number] [place] [address]- 9529 Mar, [facility] [place] [facility] [address] [id number] [place] [address]- 4984 Mar, [facility] [place] [facility] [address] [id number] [place] [address]- 6564 30 Jan, 2013 [facility] [place] [facility] [address] [id number] [place] [address]- 4742 25 Jan, 2013 [facility] [place] [facility] [address] [id number] [place] [address]- 8282 20 Jan, 2013 [facility] [place] [facility] [address] [id number] [place] [address]- 2926 10 Jan, 2013 [facility] [place] [facility] [address] [id number] [place] [address]- 6721 Dec, [facility] [place] [facility] [address] [id number] [place] [address]- 6825 Dec, [facility] [place] [facility] [address] [id number] [place] [address]- 7072 Dec, [facility] [place] [facility] [address] [id number] [place] [address]- 3316 Dec, [facility] [place] [facility] [address] [id number] [place] [address]- 5427 Dec, [facility] [place] [facility] [address] [id number] [place] [address]- 6953 Dec, [facility] [place] [facility] [address] [id number] [place] [address]- 8912 Dec, [facility] [place] [facility] [address] [id number] [place] [address]- 4674 Dec, [facility] [place] [facility] [address] [id number] [place] [address]- 3323 Dec, [facility] [place] [facility] [address] [id number] [place] [address]- 7969 Nov, [facility] [place] [facility] [address] [id number] [place] [address]- 8435 Nov, [facility] [place] [facility] [address] [id number] [place] [address]- 5903 Nov, [facility] [place] [facility] [address] [id number] [place] [address]- 6017 Nov, [facility] [place] [facility] [address] [id number] [place] [address]- 1219 Nov, [facility] [place] [facility] [address] [id number] [place] [address]- 6762 Nov, [facility] [place] [facility] [address] [id number] [place] [address]- 2231 Nov, [facility] [place] [facility] [address] [id number] [place] [address]- 6535 Nov, [facility] [place] [facility] [address] [id number] [place] [address]- 6881 Oct, [facility] [place] [facility] [address] [id number] [place] [address]- 8904 Oct, [facility] [place] [facility] [address] [id number] [place] [address]- 6306 26 Oct, 2012 [facility] [address] [id number] [place] [address]- 3063 Oct, [facility] [address] [id number] [place] [address]- 4920 Oct, [facility] [address] [id number] [place] [address]- 1649 Oct, [facility] [address] [id number] [place] [address]- 3900 Oct, [facility] [address] [id number] [place] [address]- 3078 Oct, [facility] [address] [id number] [place] [address]- 6406 Oct, [facility] [address] [id number] [place] [address]- 4602 18 Oct, 2012 [facility] [address] [id number] [place] [address]- 9101 17 Oct, 2012 [facility] [address] [id number] [place] [address]- 1978 14 Oct, 2012 [facility] [address] [id number] [place] [address]- 6745 07 Oct, 2012 [facility] [address] [id number] [place] [address]- 0119 September, [facility] [address] [id number] [place] [address]- 3696 September, [facility] [address] [id number] [place] [address]- 1000 September, [facility] [address] [id number] [place] [address]- 1192 Aug, [facility] [address] [id number] [place] [address]- 7406 Aug, [facility] [place] [facility] [address] [id number] [place] [address]- 1398 Aug, [facility] [place] [facility] [address] [id number] [place] [address]- 4075 Aug, [facility] [place] [facility] [address] [id number] [place] [address]- 4212 Aug, [facility] [place] [facility] [address] [id number] [place] [address]- 8683 Aug, [facility] [address] [id number] [place] [address]- 9020 05 Aug, 2012 [facility] [place] [facility] [address] [id number] [place] [address]- 8279 Jul, [facility] [address] [id number] [place] [address]- 8476 Jul, [facility] [address] [id number] [place] [address]- 2586 Jul, [facility] [place] [facility] [address] [id number] [place] [address]- 5084 Jul, [facility] [place] [facility] [address] [id number] [place] [address]- 2226 Jul, [facility] [place] [facility] [address] [id number] [place] [address]- 9315 Jul, [facility] [place] [facility] [address] [id number] [place] [address]- 4161 Jul, [facility] [place] [facility] [address] [id number] [place] [address]- 7642 Jul, [facility] [place] [facility] [address] [id number] [place] [address]- 2635 Jul, [facility] [place] [facility] [address] [id number] [place] [address]- 4519 Jul, [facility] [place] [facility] [address] [id number] [place] [address]- 0326 11 Jul, 2012 [facility] [address] [id number] [place] [address]- 2386 06 Jul, 2012 [facility] [address] [id number] [place] [address] 2546 Jul, [facility] [address] [id number] [place] [address]- 6830 24 Jun, 2012 [facility] [address] [id number] [place] [address] 2549 Jun, [facility] [address] [id number] [place] [address]- 0008 19 Jun, 2012 [facility] [address] [id number] [place] [address]- 5396 17 Jun, 2012 [facility] [address] [id number] [place] [address]- 4213 15 Jun, 2012 [facility] [address] [id number] [place] [address]- 6095 14 Jun, 2012 [facility] [address] [id number] [place] [address]- 7714 08 Jun, 2012 [facility] [address] [id number] [place] [address]- 7320 28 May, 2012 [facility] [address] [id number] [place] [address] 2546 May, [facility] [address] [id number] [place] [address]- 2541 May, [facility] [address] [id number] [place] [address]- 2289 May, [facility] [address] [id number] [place] [address] 2546 27 May, 2012 [facility] [address] [id number] [place] [address]- 5613 May, [facility] [place] [facility] [address] [id number] [place] [address]- 9649 May, [facility] [place] [facility] [address] [id number] [place] [address]- 7173 May, [facility] [place] [facility] [address] [id number] [place] [address]- 5045 May, [facility] [place] [facility] [address] [id number] [place] [address]- 5092 May, [facility] [place] [facility] [address] [id number] [place] [address]- 1550 Apr, [facility] [place] [facility] [address] [id number] [place] [address]- 4275 Apr, [facility] [place] [facility] [address] [id number] [place] [address]- 3055 Apr, [facility] [place] [facility] [address] [id number] [place] [address]- 3528 Apr, [facility] [place] [facility] [address] [id number] [place] [address]- 8345 Apr, [facility] [place] [facility] [address] [id number] [place] [address]- 9740 Apr, [facility] [place] [facility] [address] [id number] [place] [address]- 2269 Apr, [facility] [place] [facility] [address] [id number] [place] [address]- 6261 Apr, [facility] [place] [facility] [address] [id number] [place] [address]- 2270 Apr, [facility] [place] [facility] [address] [id number] [place] [address]- 1438 Apr, [facility] [place] [facility] [address] [id number] [place] [address]- 8325 Apr, [facility] [place] [facility] [address] [id number] [place] [address]- 0181 Apr, [facility] [place] [facility] [address] [id number] [place] [address]- 0552 Mar, 2011 [facility] [place] [facility] [address] [id number] [place] [address] Mar, 2011 [facility] [place] [facility] [address] [id number] [place] [address]- 4886 Mar, 2011 [facility] [place] [facility] [address] [id number] [place] [address]- 0349 Mar, 2011 [facility] [place] [facility] [address] [id number] [place] [address]- 4449 Mar, 2011 [facility] [place] [facility] [address] [id number] [place] [address]- 5658 Mar, 2011 [facility] [place] [facility] [address] [id number] [place] [address]- 1082 Mar, [facility] [place] [facility] [address] [id number] [place] [address]- 6948 Mar, [facility] [place] [facility] [address] [id number] [place] [address]- 0567 Mar, [facility] [place] [facility] [address] [id number] [place] [address]- 2094 Mar, 2011 [facility] [place] [facility] [address] [id number] [place] [address]- 8426 Mar, [facility] [place] [facility] [address] [id number] [place] [address]- 9068 Mar, [facility] [place] [facility] [address] [id number] [place] [address]- 9356 Mar, [facility] [place] [facility] [address] [id number] [place] [address]- 7211 Mar, [facility] [place] [facility] [address] [facility] [id number] [place] [address]- 6229 Mar, [facility] [place] [facility] [address] [id number] [place] [address]- 3392 02 Mar, 2012 [facility] [place] [facility] [address] [id number] [place] [address]- 2599 25 Jan, 2011 [facility] [place] [facility] [address] [id number] [place] [address]- 7806 24 Jan, 2011 [facility] [place] [facility] [address] [id number] [place] [address]- 7506 22 Jan, 2011 [facility] [place] [facility] [address] [id number] [place] [address]- 1277 22 Jan, 2011 [facility] [place] [facility] [address] [id number] [place] [address]- 5786 21 Jan, 2011 [facility] [place] [facility] [address] [id number] [place] [address]- 5393 18 Jan, 2011 [facility] [place] [facility] [address] [id number] [place] [address]- 7457 14 Jan, 2012 [facility] [place] [facility] [address] [id number] [place] [address]- 9614 07 Jan, 2012 [facility] [place] [facility] [address] [id number] [place] [address]- 9702 15 Dec, 2011 [facility] [place] [facility] [address] [id number] [place] [address]- 5235 10 Dec, 2011 [facility] [place] [facility] [address] [id number] [place] [address]- 8471 Dec, [facility] [place] [facility] [address] [id number] [place] [address]- 2138 Dec, [facility] [place] [facility] [address] [id number] [place] [address]- 4676 Dec, [facility] [place] [facility] [address] [id number] [place] [address]- 1156 Dec, [facility] [place] [facility] [address] [id number] [place] [address]- 0055 Dec, [facility] [place] [facility] [address] [id number] [place] [address]- 4965 Nov, [facility] [place] [facility] [address] [id number] [place] [address]- 2991 Oct, [facility] [place] [facility] [address] [id number] [place] [address]- 2084 Aug, [facility] [place] [facility] [address] [id number] [place] [address]- 3567 22 Jul, 2011 [facility] [place] [facility] [address] [id number] [place] [address]- 1371 19 Jul, 2011 [facility] [place] [facility] [address] [id number] [place] [address]- 7318 16 Jul, 2011 [facility] [place] [facility] [address] [id number] [place] [address]- 5572 14 Jul, 2011 [facility] [place] [facility] [address] [id number] [place] [address]- 4493 Jul, [facility] [place] [facility] [address] [id number] [place] [address]- 7910 Jul, [facility] [place] [facility] [address] [facility] [id number] [place] [address]- 6962 Jul, [facility] [place] [facility] [address] [id number] [place] [address]- 8360 15 Jul, 2011 [facility] [place] [facility] [address] [id number] [place] [address]- 0299 13 Jul, 2011 [facility] [place] [facility] [address] [id number] [place] [address]- 5060 03 Jul, 2011 [facility] [place] [facility] [address] [id number] [place] [address]- 0846 02 Jul, 2011 [facility] [place] [facility] [address] [id number] [place] [address]- 5528 Jun, [facility] [place] [facility] [address] [id number] [place] [address]- 3480 24 Jun, 2011 [facility] [address] [id number] [place] [address]- 6803 Jun, [facility] [address] [id number] [place] [address]- 8866 Jun, [facility] [address] [id number] [place] [address]- 4012 Jun, [facility] [address] [id number] [place] [address]- 9729 Jun, [facility] [address] [id number] [place] [address]- 1921 Jun, [facility] [address] [id number] [place] [address]- 3049 May, [facility] [address] [id number] [place] [address]- 9175 May, [facility] [address] [id number] [place] [address]- 3459 May, [facility] [address] [id number] [place] [address]- 9810 May, [facility] [address] [id number] [place] [address]- 5055 14 May, 2011 [facility] [address] [id number] [place] [address]- 9886 May, [facility] [address] [id number] [place] [address]- 8898 May, [facility] [address] [id number] [place] [address]- 2618 May, [facility] [address] [id number] [place] [address]- 0098 May, [facility] [address] [id number] [place] [address]- 8677 May, [facility] [address] [id number] [place] [address]- 7836 Apr, [facility] [address] [id number] [place] [address]- 6036 Apr, [facility] [address] [id number] [place] [address]- 6336 Apr, [facility] [id number] [place] [address]- 5256 Apr, [facility] [address] [id number] [place] [address]- 5859 Mar, [facility] [id number] [place] [address]- 9296 Mar, [facility] [id number] [place] [address]- 0485 Mar, [facility] [address] [id number] [place] [address]- 7926 Mar, IMMUNIZATIONS No Known Immunizations SOCIAL HISTORY Never Assessed REASON FOR VISIT xanax refill 05/12/2017 PLAN OF CARE VITAL SIGNS MEDICATIONS Medication [...]
[2017-12-29] MEDS ORDERED: LACTATED RINGERS 1,000 ML IV ONE (18:08)
[2017-12-29] MEDS ORDERED: morphine INJ 10 MG/ML 1ML (SYR OR VIAL) IVP STA ×2 (18:21→19:01)
[2017-12-29 18:24] LABS: BASOPHILS % (AUTO) 0 % (0-10); EOSINOPHILS % (AUTO) 0 % (0-10); HEMATOCRIT 43 % (35-52); HEMOGLOBIN 14.7 G/DL (11.5-16.0); LYMPHOCYTES # (AUTO) 1.1 X 10^3 (1.0-4.0); LYMPHOCYTES % (AUTO) 8 % (12-44); MEAN CORPUSCULAR HEMOGLOBIN 28 PG (25-34); MEAN CORPUSCULAR HGB CONC 34 G/DL (32-36); MEAN CORPUSCULAR VOLUME 82 FL (80-99); MEAN PLATELET VOLUME 11.2 FL (7.4-10.4); MONOCYTES # (AUTO) 0.6 X 10^3 (0.0-1.0); MONOCYTES % (AUTO) 5 % (0-12); NEUTROPHILS # (AUTO) 11.4 X 10^3 (1.8-7.8); NEUTROPHILS % (AUTO) 87 % (42-75); PLATELET COUNT 243 10^3/uL (130-400); RED BLOOD COUNT 5.23 10^6/uL (4.35-5.85); WHITE BLOOD COUNT 13.1 10^3/uL (4.3-11.0)
[2017-12-29] MEDS ORDERED: PROMETHAZINE INJ 25 MG/ML (PHENERGAN) AMP IVP ONE (18:30)
[2017-12-29] MEDS ORDERED: diphenhydrAMINE 50 MG/ML INJ (BENADRYL) IVP ONE (18:30)
[2017-12-29 18:32] LABS: BILIRUBIN,URINE NEGATIVE (NEGATIVE); CLARITY,URINE CLEAR; COLOR,URINE YELLOW; GLUCOSE, URINE (UA) 1+ (NEGATIVE); KETONES,URINE NEGATIVE (NEGATIVE); LEUKOCYTE ESTERASE ,URINE 2+ (NEGATIVE); NITRITE,URINE NEGATIVE (NEGATIVE); PH,URINE 7 (5-9); PROTEIN,URINE 3+ (NEGATIVE); UROBILINOGEN,URINE NORMAL (NORMAL)
[2017-12-29 18:42] LABS: BACTERIA,URINE TRACE /HPF; RBC,URINE TNTC /HPF
[2017-12-29 18:42] LABS: ALBUMIN 4.8 GM/DL (3.2-4.5); BILIRUBIN,TOTAL 0.5 MG/DL (0.1-1.0); CALCIUM 10.5 MG/DL (8.5-10.1); CREATININE SERUM 1.2 MG/DL (0.60-1.30); POTASSIUM 4.2 MMOL/L (3.6-5.0); TOTAL PROTEIN 8.3 GM/DL (6.4-8.2)
[2017-12-29 18:46] VITALS: BP 186/118
--- NOTE | 2017-12-29 19:03 | ED GI ---
General Chief Complaint: Abdominal/GI Problems Stated Complaint: VOMITING;BP ISSUES Nursing Triage Note: AMB TO ROOM REPORTS HAS A KIDNEY STONE BLASED TODAY WAS DISCHARGE FROM DAY SURG TODAY. AT 1330 WENT HOME AND SARTED VOMITING UNABLE TO TAKE B/P MEDS. Sepsis Screen: No Definite Risk Source of Information: Patient Exam Limitations: No Limitations History of Present Illness Date Seen by Provider: Dec 29, 2017 Time Seen by Provider: 18:00 Initial Comments PT ARRIVES VIA POV FROM HOME PT HAD LITHOTRIPSY TODAY FOR RIGHT URETERAL STONE, BY DR. HOOK PT HAS HAD NAUSEA/VOMITING / DRY HEAVES AND CONTINUED RIGHT FLANK AND RLQ PAIN SINCE SURGERY--DISMISSED AT 1330 TODAY ALSO C/O HEADACHE STATES SHE CANNOT KEEP DOWN ANY OF HER MEDICATIONS TODAY, INCLUDING BP AND PAIN MEDICATIONS. NO PROBLEMS URINATING PT STATES HER TEMP WAS 99 AFTER THE PROCEDURE PT IS CURRENTLY ON 2 ANTIBIOTICS FOR UTI PT HAS HAD LITHOTRIPSIES BEFORE, BUT DID NOT HAVE THIS PROBLEM. PCP; DR. MAST UROLOGIST: DR. HOOK Allergies and Home Medications Allergies Coded Allergies: Sulfa (Sulfonamide Antibiotics) (Unverified Allergy, Unknown, 12/28/17) hydrocodone (Verified Allergy, Unknown, itching. Pt has received hydromorphone w/o issue, 12/29/17) NOTE: Patient has taken Percocet and Lortab as home meds as recent as 12/25/17 ketorolac tromethamine (Verified Allergy, Unknown, 12/28/17) levofloxacin (Unverified Allergy, Unknown, 12/28/17) GIVES HER THRUSH nitrofurantoin (Unverified Allergy, Unknown, 12/28/17) ondansetron (Verified Allergy, Unknown, 12/28/17) tramadol (Unverified Allergy, Unknown, 12/28/17) Home Medications Alprazolam 1 Mg Tablet, 2 MG PO HS, (Reported) Amlodipine Besylate 2.5 Mg Tablet, 2.5 MG PO DAILY, (Reported) Atorvastatin Calcium 10 Mg Tablet, 10 MG PO HS, (Reported) Gabapentin 600 Mg Tablet, 1,200 MG PO BID, (Reported) TAKE 2 (600MG) TABS Hydrocodone/Acetaminophen 1 Each Tablet, 1-2 EACH PO Q4H PRN for PAIN Prescribed by: JANES ELIZALDE on 7/31/18 0916 Metoprolol Tartrate 50 Mg Tablet, 50 MG PO HS, (Reported) Nitrofurantoin Monohyd/M-Cryst 100 Mg Capsule, 1 TAB PO BID WITH MEALS Prescribed by: JANES ELIZALDE on 12/29/17915 Promethazine HCl 25 Mg Supp.rect, 25 MG RC Q4H Prescribed by: ZOFIA MORA on 12/29/17 193 Quetiapine Fumarate 300 Mg Tablet, 300 MG PO HS, (Reported) Trazodone HCl 300 Mg Tablet, 300 MG PO HS, (Reported) Patient Home Medication List Home Medication List Reviewed: Yes Review of Systems Constitutional: see HPI EENTM: No Symptoms Reported Respiratory: No Symptoms Reported Cardiovascular: No Symptoms Reported Gastrointestinal: See HPI, Abdominal Pain, Nausea, Poor Appetite, Poor Fluid Intake, Vomiting Genitourinary: See HPI, Flank Pain Musculoskeletal: see HPI, back pain Skin: no symptoms reported Psychiatric/Neurological: No Symptoms Reported Endocrine: No Symptoms Reported Hematologic/Lymphatic: No Symptoms Reported Past Krcaxpn-Aglsqv-Ysqbyl Hx Patient Social History Alcohol Use: Denies Use Recreational Drug Use: No (UNKNOWN) Smoking Status: Never a Smoker 2nd Hand Smoke Exposure: No Recent Foreign Travel: No Contact w/Someone Who Travel: No Recent Infectious Disease Expo: No Recent Hopitalizations: No Immunizations Up To Date Date of Pneumonia Vaccine: Mar 01, 2013 Date of Influenza Vaccine: Mar 16, 2017 Seasonal Allergies Seasonal Allergies: Yes (MILD) Past Medical History Surgeries: Yes (BREAST REDUCTION; MULTIPLE CYSTOSCOPIES WITH URETHRAL DILATION ; LAP GABY FUNDOPLICATION; LITHOTRIPSIES; VAGINAL SURGERY; CYSTS ON BACK X 2 REMOVED. 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, 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 Sexually Transmitted Disease: No HIV/AIDS: No Genitourinary: Yes (INCONTINENCE) Bladder Infection, Kidney Stones, Renal Failure, UTI-Chronic Gastrointestinal: Yes (S/P HIATAL HERNIA REPAIR) Gastroesophageal Reflux, Pancreatitis, Chronic Diarrhea, Hiatal Hernia Musculoskeletal: Yes Fibromyalgia, Chronic Back Pain Endocrine: No HEENT: No Loss of Vision: Bilateral Hearing Impairment: Denies Cancer: Yes (CLAIMS "VAGINAL AND OVARIAN CANCER" BUT NO CHEMOR OR RADIATION AND HAS NEVER SEEN ONCOLOGIST) Vaginal Did You Recieve Any Treatments: Yes What Type of Treatment Did You: Surgical Intervention Psychosocial: Yes (EXTENSIVE PSYCH ISSUES) Anxiety, Depression Integumentary: No Blood Disorders: No Adverse Reaction/Blood Tranf: No (HAS HAD BLOOD WITH NO REACTION) Family Medical History Dementia 19 FATHER Family history: Cardiovascular disease 19 FATHER Family history: Diabetes mellitus G8 SISTER Family history: Hypertension 19 FATHER 19 MOTHER History of - respiratory disease 19 MOTHER Seizure disorder G8 SISTER No Family History of: Abdominal aortic aneurysm [place]'s disease Alcoholism Aphasia Cancer Cancer of colon Cataract Chest pain Congenital heart disease Congestive heart failure Cystic fibrosis Family history: Osteoporosis Family history: Thyroid disorder Headache Hearing loss Heart disease Hereditary disease History of - anemia History of - disorder History of drug abuse Human immunodeficiency virus (HIV) seropositivity Hypercholesterolemia Infertile Kidney disease Malignant neoplasm of lung Myocardial infarction Parkinson's disease Prostate cancer Psychotic disorder Stroke Tuberculosis Visual impairment Heart Disease Physical Exam Vital Signs Vital Signs - First Documented 12/29/17 18:04 Temp 95.8 Pulse 104 Resp 18 B/P (MAP) 196/129 (151) Pulse Ox 95 O2 Delivery Room Air Capillary Refill : Less Than 3 Seconds Height/Weight/BMI Height: 5'1.00" Weight: 165lbs. 0.0oz. 74.333965tu; 31.2 BMI Method:Stated General Appearance: other (DRAMATIC, DRY HEAVES MOSTLY WITH SMALL AMOUNT OF MOSTLY CLEAR LIQUID. 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, no motor/sensory deficits, alert, oriented x 3 Skin: normal color, warm/dry Progress/Results/Core Measures Results/Orders Lab Results Laboratory Tests Test 12/29/17 18:15 12/29/17 18:24 Range/Units White Blood Count 13.1 H 4.3-11.0 10^3/uL Red Blood Count 5.23 4.35-5.85 10^6/uL Hemoglobin 14.7 11.5-16.0 G/DL Hematocrit 43 35-52 % Mean Corpuscular Volume 82 80-99 FL Mean Corpuscular Hemoglobin 28 25-34 PG Mean Corpuscular Hemoglobin Concent 34 32-36 G/DL Red Cell Distribution Width 13.0 10.0-14.5 % Platelet Count 243 130-400 10^3/uL Mean Platelet Volume 11.2 H 7.4-10.4 FL Neutrophils (%) (Auto) 87 H 42-75 % Lymphocytes (%) (Auto) 8 L 12-44 % Monocytes (%) (Auto) 5 0-12 % Eosinophils (%) (Auto) 0 0-10 % Basophils (%) (Auto) 0 0-10 % Neutrophils # (Auto) 11.4 H 1.8-7.8 X 10^3 Lymphocytes # (Auto) 1.1 1.0-4.0 X 10^3 Monocytes # (Auto) 0.6 0.0-1.0 X 10^3 Eosinophils # (Auto) 0.0 0.0-0.3 10^3/uL Basophils # (Auto) 0.0 0.0-0.1 10^3/uL Sodium Level 138 135-145 MMOL/L Potassium Level 4.2 3.6-5.0 MMOL/L Chloride Level 102 98-107 MMOL/L Carbon Dioxide Level 22 21-32 MMOL/L Anion Gap 14 5-14 MMOL/L Blood Urea Nitrogen 13 7-18 MG/DL Creatinine 1.20 0.60-1.30 MG/DL Estimat Glomerular Filtration Rate 48 BUN/Creatinine Ratio 11 Glucose Level 175 H 70-105 MG/DL Calcium Level 10.5 H 8.5-10.1 MG/DL Total Bilirubin 0.5 0.1-1.0 MG/DL Aspartate Amino Transf (AST/SGOT) 30 5-34 U/L Alanine Aminotransferase (ALT/SGPT) 37 0-55 U/L Alkaline Phosphatase 73 40-136 U/L Total Protein 8.3 H 6.4-8.2 GM/DL Albumin 4.8 H 3.2-4.5 GM/DL Amylase Level 48 25-125 U/L Lipase 13 8-78 U/L Urine Color YELLOW Urine Clarity CLEAR Urine pH 7 5-9 Urine Specific [place] 1.010 L 1.016-1.022 Urine Protein 3+ H NEGATIVE Urine Glucose (UA) 1+ H NEGATIVE Urine Ketones NEGATIVE NEGATIVE Urine Nitrite NEGATIVE NEGATIVE Urine Bilirubin NEGATIVE NEGATIVE Urine Urobilinogen NORMAL NORMAL MG/DL Urine Leukocyte Esterase 2+ H NEGATIVE Urine RBC (Auto) 5+ H NEGATIVE Urine RBC TNTC H /HPF Urine WBC 2-5 /HPF Urine Squamous Epithelial Cells 5-10 /HPF Urine Crystals NONE /LPF Urine Bacteria TRACE /HPF Urine Casts NONE /LPF Urine Mucus NEGATIVE /LPF Urine Culture Indicated NO My Orders Orders - ZOFIA MORA DO Saline Lock/Iv-Start (12/29/17 18:08) Amylase (12/29/17 18:08) Cbc With Automated Diff (12/29/17 18:08) Comprehensive Metabolic Panel (12/29/17 18:08) Lipase (12/29/17 18:08) Ua Culture If Indicated (12/29/17 18:08) Saline Lock/Iv-Start (12/29/17 18:08) Lactated Ringers (Lr 1000 Ml Iv Solution (12/29/17 18:08) Promethazine Injection (Phenergan Injec (12/29/17 18:30) Diphenhydramine Injection (Benadryl Inje (12/29/17 18:30) Morphine Injection (Morphine Injection (12/29/17 18:21) Morphine Injection (Morphine Injection (12/29/17 19:01) Metoprolol Tartrate Injection (Lopressor (12/29/17 19:15) Labetalol Injection (Normodyne Injection (12/29/17 19:15) Medications Given in ED Current Medications Medications Dose Ordered Sig/Tk Route Start Time Stop Time Status Last Admin Dose Admin Diphenhydramine HCl 25 mg ONCE ONCE IVP 12/29/17 18:30 12/29/17 18:31 DC 12/29/17 18:35 25 MG Labetalol HCl 10 mg ONCE ONCE IV 12/29/17 19:15 12/29/17 19:16 DC 12/29/17 19:15 10 MG Lactated Ringer's 1,000 ml @ 0 mls/hr Q0M ONCE IV 12/29/17 18:08 12/29/17 18:11 DC 12/29/17 18:33 1,000 MLS/HR Promethazine HCl 25 mg ONCE ONCE IVP 12/29/17 18:30 12/29/17 18:31 DC 12/29/17 18:32 25 MG Vital Signs/I&O 12/29/17 12/29/17 12/29/17 18:04 18:46 20:00 Temp 95.8 95.8 Pulse 104 86 86 Resp 18 18 18 B/P (MAP) 196/129 (151) 186/118 (140) 174/113 (140) Pulse Ox 95 94 94 O2 Delivery Room Air Room Air Room Air 12/30/17 00:00 Intake Total 600 ml Balance 600 ml Blood Pressure Mean: 140 Progress Progress Note : Progress Note NAUSEA IMPROVED AND NO FURTHER VOMITING BP DOWN WITH MEDICATIONS FLANK/ABDOMINAL PAIN AND HEADACHE IMPROVED AT DISMISSAL Departure Impression Primary Impression: Post-op pain Additional Impressions: Post-operative nausea and vomiting Right ureteral calculus HTN (hypertension) Disposition: 01 HOME, SELF-CARE Condition: Improved Departure-Patient Inst. Referrals: SABIHA MAST MD (PCP/Family) Primary Care Physician MARISA HOOK MD Patient Instructions: High Blood Pressure (DC), Nausea and Vomiting, Adult (DC) , Postoperative Pain (DC) Add. Discharge Instructions: TAKE YOUR REGULAR MEDICATIONS PRESCRIBED, INCLUDING YOUR HOME PAIN MEDICATIONS CLEAR LIQUIDS, SIPS AT A TIME--WATER, BROTH, JELLO, GATORADE FOLLOW UP WITH DR. HOOK TOMORROW IF NO BETTER RETURN TO ER IF WORSE All discharge instructions reviewed with patient and/or family. Voiced understanding. Scripts Promethazine HCl (Phenergan) 25 Mg Supp.rect 25 MG RC Q4H for Nausea/Vomiting, #10 SUPP.RECT Prov: ZOFIA MORA DO 12/29/17 ZOFIA MORA DO Dec 29, 2017 19:02
[2017-12-29] MEDS ORDERED: LABETALOL HCL 20 MG/4 ML VIAL IV ONE (19:15)
[2017-12-29] MEDS ORDERED: meTOprolol 5 MG/5 ML (LOPRESSOR) VIAL IV ONE (19:15)
[2017-12-29] MEDS ORDERED: PROM25SU43 RC (19:35)
[2017-12-29 20:00] VITALS: BP 174/113
== END 2017-12-29 20:00 | disposition home or self-care (01) ==
LOC: EDUNIT# 16:44 → ER 16:45
DX: G89.18 Other acute postprocedural pain (principal); N99.89 Other postprocedural complications and disorders of genitourinary system; R11.2 Nausea with vomiting, unspecified; N20.1 Calculus of ureter; I10 Essential (primary) hypertension; J45.909 Unspecified asthma, uncomplicated; G47.30 Sleep apnea, unspecified; E78.00 Pure hypercholesterolemia, unspecified; G43.909 Migraine, unspecified, not intractable, without status migrainosus; F41.9 Anxiety disorder, unspecified; F32.9 Major depressive disorder, single episode, unspecified; G40.909 Epilepsy, unspecified, not intractable, without status epilepticus; K21.9 Gastro-esophageal reflux disease without esophagitis; Z87.448 Personal history of other diseases of urinary system; Z87.19 Personal history of other diseases of the digestive system; Z85.43 Personal history of malignant neoplasm of ovary; Z98.890 Other specified postprocedural states; Z82.49 Family history of ischemic heart disease and other diseases of the circulatory system; Z87.01 Personal history of pneumonia (recurrent); Z88.2 Allergy status to sulfonamides; Z88.1 Allergy status to other antibiotic agents; Z88.5 Allergy status to narcotic agent; Z88.8 Allergy status to other drugs, medicaments and biological substances; Z88.6 Allergy status to analgesic agent; Z88.4 Allergy status to anesthetic agent; Z90.89 Acquired absence of other organs; Z90.710 Acquired absence of both cervix and uterus; Z98.51 Tubal ligation status
CPT/HCPCS: 36415; 80053; 81000; 82150; 83690; 85025; 96361; 96374; 96375; 96376

== ENCOUNTER 2018-01-11 05:46 | Outpatient (CLI) | payer MEDICARE ==
[~2018-01-11] VITALS: Ht 154.9 cm; Wt 74.8 kg
[~2018-01-11 05:46] MED LIST changes: -ATOR10TA66 PO; -DOXY100C PO; -HYDR-3812 PO; -PROC-1 PO; -PROM25SU44 RC; -TAMS0.4C98 PO
== END 2018-01-11 08:59 | disposition home or self-care (01) ==
LOC: PREOP 05:46
PROVIDERS: ATTEND Urology
DX: Z01.818 Encounter for other preprocedural examination (principal)

== ENCOUNTER → 2018-01-11 | Outpatient (CLI) | payer MEDICARE, OTHER ==
[~2018-01-11] MED LIST changes: +ATOR10TA66 PO; +DOXY100C PO; +HYDR-3812 PO; +PROC-1 PO; +PROM25SU43 RC; +PROM25SU44 RC; +TAMS0.4C98 PO
--- NOTE | 2018-01-11 14:02 | Diagnostic Imaging Report ---
INDICATION: Nephrolithiasis. Comparison made with prior examination 12/29/2017. FINDINGS: The bowel gas pattern is nonspecific. There are surgical clips in the right upper quadrant and left hemipelvis. There is a stone overlying the inferior aspect of left kidney. There also appears to be tiny stone in inferior aspect of the right kidney. IMPRESSION: Bilateral nephrolithiasis. Nonspecific bowel gas pattern. Dictated by: Dictated on workstation # [id number]
== END ==
LOC: RAD 13:44
PROVIDERS: ATTEND Urology
DX: N20.0 Calculus of kidney (principal)
CPT/HCPCS: 74018

== ENCOUNTER 2018-01-13 06:19 | Day surgery (SDC) | payer MEDICARE, OTHER ==
[~2018-01-13] VITALS: Ht 154.9 cm; Wt 74.8 kg
[2018-01-13 06:45] VITALS: BP 166/101
[2018-01-13] MEDS ORDERED: LACTATED RINGERS 1,000 ML IV PRN (06:45)
[2018-01-13] MEDS ORDERED: cefTRIAXone INJECTION 1,000 MG in NS (IVPB) 50 ML IV ONE (06:45)
--- NOTE | 2018-01-13 07:03 | Progress Note-Pre Operative ---
Pre-Operative Progress Note H&P Reviewed The H&P was reviewed, patient examined and no changes noted. Date Seen by Provider: Jan 13, 2018 Time Seen by Provider: 07:03 Date H&P Reviewed: Jan 13, 2018 Time H&P Reviewed: 07:03 Pre-Operative Diagnosis: LT URETERAL AND LT RENAL STONES MARISA HOOK MD Jan 13, 2018 7:03 am
--- NOTE | 2018-01-13 07:33 | Diagnostic Imaging Report ---
INDICATION: Nephrolithiasis. Comparison made with prior examination from 10/11/17. FINDINGS: Bowel gas pattern is nonspecific. There are calcifications projected over both kidneys. Surgical clips in the right upper quadrant and pelvis. IMPRESSION: Bilateral nephrolithiasis left greater than right. Nonspecific bowel gas pattern. Dictated by: Dictated on workstation # [id number]
[2018-01-13] MEDS ORDERED: FAMOTIDINE 20MG/2ML IV (PEPCID) IVP ONE (07:45)
[2018-01-13] MEDS ORDERED: SCOPOLAMINE 1.5 MG (TRANSDERM-SCOP) PATCH TD ONE (07:45)
[2018-01-13] MEDS ORDERED: SEVOFLURANE (ULTANE) 15 ML INHAL SOLN ONE (07:54)
[2018-01-13] MEDS ORDERED: LIDOCAINE PF 2% 5 ML (XYLOCAINE) VIAL ONE (07:54)
[2018-01-13] MEDS ORDERED: proPOfol 200 MG/20 ML (DIPRIVAN) VIAL IV ONE (07:54)
[2018-01-13] MEDS ORDERED: MIDAZOLAM 2 MG/2 ML (VERSED) VIAL ONE (07:54)
[2018-01-13] MEDS ORDERED: fentaNYL INJECTION 100 MCG/2 ML AMP ONE ×2 (07:54→08:48)
[2018-01-13] MEDS ORDERED: FAMOTIDINE 20MG/2ML IV (PEPCID) ONE (07:57)
[2018-01-13] MEDS ORDERED: SCOPOLAMINE 1.5 MG (TRANSDERM-SCOP) PATCH ONE (07:57)
[2018-01-13] MEDS ORDERED: DEXAMETHASONE 10 MG/ML (DECADRON) 1 ML VIAL ONE (07:58)
[2018-01-13] MEDS ORDERED: PROPOFOL INJECTION 50 ML IV ONE (08:28)
[2018-01-13] MEDS ORDERED: diphenhydrAMINE 50 MG/ML INJ (BENADRYL) ONE (08:33)
[2018-01-13] MEDS ORDERED: ROCURONIUM 10 MG/ML 5 ML SYRINGE IV ONE (08:33)
[2018-01-13] MEDS ORDERED: SUCCINYLCHOLINE INJ 100 MG/5 ML SYR ONE (08:33)
[2018-01-13] MEDS ORDERED: LABETALOL HCL 20 MG/4 ML VIAL ONE (08:44)
[2018-01-13] MEDS ORDERED: NEOSTIGMINE 1 MG/ML 5 ML SYRINGE ONE (08:51)
[2018-01-13] MEDS ORDERED: GLYCOPYRROLATE 0.2 MG/ML (ROBINUL) 2 ML VIAL ONE (08:51)
--- NOTE | 2018-01-13 09:02 | Progress Note-Post Operative ---
Post-Operative Progess Note Surgeon (s)/Digital Production Artist (s) Surgeon MARISA HOOK MD Digital Production Artist: N/A Pre-Operative Diagnosis LT URETERAL AND LT RENAL STONES Post-Operative Diagnosis SAME Procedure & Operative Findings Date of Procedure 01/13/18 Procedure Performed/Findings LT URETEROSCOPY WITH STONE LITHOTRIPSY Anesthesia Type GENERAL Estimated Blood Loss Estimated blood loss (mL): N/A Specimens/Packing Specimens Removed N/A Packing: N/A MARISA HOOK MD Jan 13, 2018 9:02 am
--- NOTE | 2018-01-13 09:04 | Discharge Inst-Urology ---
Discharge Inst-Urology Discharge Medications New, Converted, or Re-newed RX: RX on Chart Patient Instructions/Follow Up Plan Please make appointment to been seen in office Thursday 01/25. KUB on way home Post lithotripsy instructions Increase oral fluids for 48 hours and then as needed. Diet and Activity as tolerated. If questions or concerns contact your physician Or seek help at emergency department. MARISA HOOK MD Jan 13, 2018 9:04 am
[2018-01-13] MEDS ORDERED: fentaNYL INJECTION 100 MCG/2 ML AMP IVP PRN (09:15)
[2018-01-13] MEDS ORDERED: PROMETHAZINE INJ 25 MG/ML (PHENERGAN) AMP IVP PRN (09:15)
[2018-01-13] MEDS: HYDROmorphone 1 MG/ML (DILAUDID) 1 ML SYRINGE ONE ×2 (09:19→09:37)
[2018-01-13] MEDS: HYDROmorphone 1 MG/ML (DILAUDID) 1 ML SYRINGE IV PRN ×4 (09:19→09:56)
[2018-01-13 10:15] VITALS: BP 165/92
[2018-01-13 10:16] VITALS: BP 165/92
[2018-01-13 10:45] VITALS: BP 162/96
[2018-01-13] MEDS ORDERED: PROCHLORPERAZINE 10 MG TAB (COMPAZINE) PO ONE (11:00)
[2018-01-13] MEDS ORDERED: TAMS0.4C98 PO (11:11)
[2018-01-13] MEDS ORDERED: DOXY100C PO (11:11)
[2018-01-13 11:15] VITALS: BP 154/88
--- NOTE | 2018-01-13 11:47 | Diagnostic Imaging Report ---
INDICATION: Status post lithotripsy. TIME OF EXAM: 11:53 a.m. Correlation is made with prior radiograph from earlier the same day. Surgical clips in the left pelvis and right upper quadrant are noted. Dominant calculus overlying lower pole left kidney is again seen. There appears to be some slight fragmentation status post lithotripsy. Tiny calcific density overlies lower pole right kidney. No calculi along the course of the ureters are seen. IMPRESSION: Questionable mild fragmentation of the left lower pole calculus, status post lithotripsy. Dictated by: Dictated on workstation # [id number]
--- NOTE | 2018-01-13 14:54 | Anesthesia-General Post-Op ---
General Patient Condition Mental Status/LOC: Same as Preop Cardiovascular: Satisfactory Nausea/Vomiting: Absent Respiratory: Satisfactory Pain: Controlled Complications: Absent Post Op Complications Complications None Follow Up Care/Instructions Patient Instructions None needed. Anesthesia/Patient Condition Patient Condition Patient is doing well, no complaints, stable vital signs, no apparent adverse anesthesia problems. No complications reported per nursing. SKY VILCHIS CRNA Jan 13, 2018 14:54
--- NOTE | 2018-01-13 15:29 | OPERATIVE REPORT ---
DATE OF SERVICE: 01/13/2018 PREOPERATIVE DIAGNOSIS: Left distal ureteral and left renal stone. POSTOPERATIVE DIAGNOSIS: Left distal ureteral and left renal stone. OPERATION PERFORMED: Left ureteroscopy with stone lithotripsy. SURGEON: Eber Hook MD ANESTHESIA: General. COMPLICATIONS: None. DESCRIPTION OF PROCEDURE: With the patient in lithotomy position, genitalia were prepped and draped in usual sterile fashion. Cystoscope was introduced under vision. The examination of the bladder was essentially normal except for vaginal prolapse. Using the foroblique lens, I dilated the left ureteral orifice and intramural portion to the level of the stone that was felt and seen fluoroscopically to accommodate a 6.9 [place] semi-rigid ureteroscope, visualized the stone, completely fragmented it with the lithoclast first at power of 5 and then at 12 in order not to lose the stone proximally. Fragments, most of them flew down into the bladder. I went up into the proximal ureter. There was no further stone or fragment needing to be addressed. I did not see any reason to perform ESWL of the renal stone at this point in order to avoid any fragment obstruction, so I removed the ureteroscope, reinserted the cystoscope and emptied the bladder. The patient tolerated the procedure and anesthesia well and was sent to recovery room in stable condition. We will plan ESWL on the left renal stone in two weeks as previously explained to the patient and postoperatively to the . Job ID: [id number] DocumentID: [id number] Dictated Date: 01/13/2018 09:06:39 Metal Fabricating Supervisor Date: 01/13/2018 15:29:04 Dictated By: EBER HOOK MD [facility]
[2018-01-14] MEDS ORDERED: ATOR10TA66 PO (08:35)
[2018-01-14] MEDS ORDERED: GABA800T2 PO (08:35)
[2018-01-14] MEDS ORDERED: HYDR-3812 PO (08:38)
== END 2018-01-13 11:35 | disposition home or self-care (01) ==
LOC: SDC 06:19
PROVIDERS: ATTEND Urology
DX: N20.1 Calculus of ureter (principal); N20.0 Calculus of kidney; Z11.2 Encounter for screening for other bacterial diseases; I10 Essential (primary) hypertension; E78.5 Hyperlipidemia, unspecified; J45.909 Unspecified asthma, uncomplicated; G47.33 Obstructive sleep apnea (adult) (pediatric); G40.909 Epilepsy, unspecified, not intractable, without status epilepticus; F32.9 Major depressive disorder, single episode, unspecified; F41.9 Anxiety disorder, unspecified; M79.7 Fibromyalgia; K21.9 Gastro-esophageal reflux disease without esophagitis; Z79.899 Other long term (current) drug therapy
CPT/HCPCS: 74018; 87081

== ENCOUNTER 2018-01-13 21:38 | Observation (INO) | payer MEDICARE, OTHER ==
[~2018-01-13] VITALS: Ht 154.9 cm; Wt 75.7 kg
[~2018-01-13 21:38] MED LIST changes: +DOXY100C PO; +TAMS0.4C98 PO
--- OUTSIDE RECORDS SUMMARY | 2018-01-13 21:44 | XMS REPORT | Clinical Summary ---
Author Author [facility] Organization [facility] Address Unknown Phone Unavailable Care Team Providers Care Distribution Coordinator Name Role Phone Majo Young RN Unavailable Unavailable Areli Sanchez DO PCP Source Comments Some departments are not documenting in the electronic medical record. If you do not see the information that you expected, contact Release of Information in the Health Information Management department at [phone] for further assistance in locating additional records.[facility] Allergies Active Allergy Reactions Severity Noted Date [...]
--- OUTSIDE RECORDS SUMMARY | 2018-01-13 21:45 | XMS REPORT ---
Author Author ITZ JUNIOR [facility] Address [address] [place] [address] Care Team Providers Care E Business Specialist Name Role Phone ROSA JUNIORA Unavailable PROBLEMS Type Condition ICD9-CM Code CLY85-IN Code Onset Dates Condition Status SNOMED Code Problem FRANCIS (generalized anxiety disorder) F41.1 Active 11648853 Problem Conversion disorder (or hysterical neurosis, conversion type) F44.9 Active 18364212 Problem Thoracic disc herniation M51.24 Active 728868491 Problem Major depressive disorder in partial remission F32.4 Active 53082400 Problem Restless leg syndrome G25.81 Active 01446261 Problem Mild episode of recurrent major depressive disorder F33.0 Active 997526894 Problem Paroxysmal tachycardia I47.9 Active 46357091 Problem Seizure disorder G40.909 Active 669584706 Problem Constipation, unspecified constipation type K59.00 Active 91429230 Problem Slow transit constipation K59.01 Active 02104226 ALLERGIES Substance Reaction Event Type Date Status Macrobid hives Drug Allergy September, Active Levaquin hives Drug Allergy September, Active Tramadol Unknown Drug Allergy September, Active Ambien 10 Mg Tablet Sleep Walking and Sleep Driving. Eating while asleep. lg Non Drug Allergy September, Active ENCOUNTERS Encounter Location Date Diagnosis [facility] [id number] [address] Dec, [facility] [id number] [address] Nov, [facility] [address] [address] 9[address] Nov, [facility] [id number] [address] 7080 September, [facility] [id number] [address] September, [facility] [id number] [place] [address] 61003- 4405 September, Major depressive disorder in partial remission F32.4 ; FRANCIS ( generalized anxiety disorder) F41.1 and Restless leg syndrome G25.81 [facility] [id number] [place] [address] 20371- 2411 September, [facility] [id number] [place] [address] 67706- 0472 Jul, [facility] [id number] [place] [address] 30817- 1749 Jul, Dorsalgia, unspecified M54.9 [facility] [facility] [id number] [place] [address] 11611- 3628 Jul, Mild episode of recurrent major depressive disorder F33.0 and FRANCIS (generalized anxiety disorder) F41.1 [facility] [id number] [place] [address] 63298- 2482 May, [facility] [id number] [place] [address] 15474 -7702 May, Dysuria R30.0 and Acute cystitis with hematuria N30.01 [facility] [id number] [place] [address] 20973- 1372 Apr, [facility] [id number] [place] [address] 72253- 2956 Apr, Major depressive disorder in partial remission F32.4 and FRANCIS (generalized anxiety disorder) F41.1 [place] [facility] [id number] [place] [address] 47988- 2453 Mar, Paroxysmal tachycardia I47.9 [facility] [id number] [place] [address] 81671- 8293 Mar, Paroxysmal tachycardia I47.9 and Pain of left lower extremity M79.605 [facility] [id number] [place] [address] 33439- 1578 Mar, FRANCIS (generalized anxiety disorder) F41.1 and Major depressive disorder in partial remission F32.4 [facility] [facility] [id number] [place] [address] 15880- 9245 Jan, [facility] [id number] [place] [address] 07312- 6142 14 Jan, 2017 [facility] [id number] [place] [address] 78091- 7897 Jan, [facility] [id number] [place] [address] 02356 -4843 Dec, Constipation, unspecified constipation type K59.00 [place] [id number] [place] [address] 20460- 5446 Dec, [facility] [facility] [id number] [place] [address] 49487- 8422 Nov, [facility] [facility] [id number] [place] [address] 24417- 9326 Nov, Major depressive disorder in partial remission F32.4 and FRANCIS (generalized anxiety disorder) F41.1 [facility] [id number] [place] [address] 71787 -5491 Oct, Abdominal pain R10.9 and Slow transit constipation K59.01 [place] [facility] [id number] [place] [address] 32223- 0548 Aug, Major depressive disorder in partial remission F32.4 ; FRANCIS ( generalized anxiety disorder) F41.1 ; Conversion disorder (or hysterical neurosis, conversion type) F44.9 ; Dorsalgia, unspecified M54.9 and Long-term use of high-risk medication Z79.899 [facility] [id number] [place] [address] 62533- 0309 Aug, [facility] [id number] [place] [address] 06367- 9886 Jul, Paroxysmal tachycardia I47.9 [facility] [id number] [place] [address] 67124- 1962 Jul, Paroxysmal tachycardia I47.9 [facility] [id number] [place] [address] 28559- 1490 Jun, [facility] [address] 15178- 0158 Jun, Major depressive disorder in partial remission F32.4 ; FRANCIS ( generalized anxiety disorder) F41.1 and Conversion disorder (or hysterical neurosis, conversion type) F44.9 [facility] [address] 36094 -8078 May, Pelvic pain R10.2 [facility] [address] 13569 -5161 Apr, Gastroenteritis K52.9 [facility] [address] 87158 -8162 Apr, Blood in urine R31.9 and Acute cystitis with hematuria N30.01 [place] [address] 46250- 5711 Apr, Major depressive disorder in partial remission F32.4 ; FRANCIS ( generalized anxiety disorder) F41.1 and Conversion disorder (or hysterical neurosis, conversion type) F44.9 [place] [id number] [place] [address] 88093- 0192 Apr, [facility] [facility] [id number] [place] [address] 16276- 4691 Apr, Abnormal mammogram R92.8 [place] [address] 32479- 3117 Mar, [facility] [address] 60217- 8881 Mar, Gastroenteritis K52.9 and Seizure disorder G40.909 [facility] [address] [address] 5751 Dec, [facility] [id number] [place] [address] 70872 -4850 Dec, Other headache syndrome G44.89 [facility] [id number] [place] [address] 32592- 5313 Dec, [facility] [id number] [place] [address] 75255- 1219 Dec, Thoracic disc herniation M51.24 [facility] [id number] [place] [address] 56039- 7742 Dec, [facility] [id number] [place] [address] 76630- 7679 Nov, Major depressive disorder in partial remission F32.4 and FRANCIS (generalized anxiety disorder) F41.1 [facility] [id number] [place] [address] 33041- 5203 Nov, [facility] [id number] [place] [address] 81506- 4210 Nov, Dorsalgia, unspecified M54.9 [facility] [id number] [place] [address] 98019- 0541 Oct, [facility] [id number] [place] [address] 03462- 6543 September, [facility] [id number] [place] [address] 43690- 5058 Aug, [facility] [id number] [place] [address] 79413- 3556 Aug, Major depressive disorder in partial remission F32.4 and FRANCIS (generalized anxiety disorder) F41.1 [facility] [id number] [place] [address] 14221- 9954 Aug, [facility] [id number] [place] [address] 55780- 8170 Jul, Abnormal mammogram R92.8 [facility] [address] [address]- 4794 Jul, [facility] [address] [address]- 0214 Jul, [facility] [address] [address]- 1048 Jul, [facility] [address] [address]- 8164 Jul, [facility] [address] [address]- 2495 Jul, [facility] [address] [address]- 1088 Jul, [facility] [address] [address]- 6837 Jun, Major depressive disorder in partial remission F32.4 and FRANCIS (generalized anxiety disorder) F41.1 [facility] [address] [address]- 0874 Jun, [facility] [address] [address]- 7016 May, [facility] [address] [address]- 0250 Apr, [facility] [address] [address]- 8492 Mar, Major depressive disorder, recurrent episode, moderate F33.1 ; PTSD (post-traumatic stress disorder) F43.10 and FRANCIS (generalized anxiety disorder) F41.1 [facility] [address] 6092 Mar, [facility] [address] [address]- 7818 Mar, [facility] [id number] [address]- 4158 07 Mar, 2015 [facility] [id number] 5215 07 Mar, 2015 [facility] [address] [facility] [id number] [address]- 8887 23 Jan, 2015 [facility] [address] [address]- 4447 15 Jan, 2015 [facility] [address] [facility] [id number] [place] [address]- 7472 15 Jan, 2015 [facility] [id number] [place] [address] 95251- 8672 14 Jan, 2015 Thoracic disc herniation 722.11 [facility] [address] [address]- 2087 Dec, [facility] [address] [address]- 8068 Dec, [facility] [address] [address]- 6176 Dec, [facility] [address] [address]- 2388 Nov, [facility] [address] [address]- 6972 Nov, Generalized anxiety disorder 300.02 ; Posttraumatic stress disorder 309.81 and Major depressive disorder, recurrent episode, moderate 296.32 [facility] [address] [address]- 5693 Nov, [facility] [id number] 4497 Nov, [facility] [id number] [address]- 8968 17 Oct, 2014 [facility] [address] [address]- 8061 Oct, [facility] [place] [facility] [address] [id number] [place] [address]- 8314 Oct, [facility] [place] [facility] [address] [id number] [place] [address]- 9749 September, [facility] [place] [facility] [address] [id number] [place] [address]- 5521 September, [facility] [place] [facility] [address] [id number] [place] [address]- 5227 Aug, [facility] [place] [facility] [address] [id number] [place] [address]- 8332 Aug, [facility] [place] [facility] [address] [id number] [place] [address]- 6412 Jul, [facility] [place] [facility] [address] [id number] [place] [address]- 4092 Jul, [facility] [place] [facility] [address] [id number] [place] [address]- 1977 Jul, [facility] [place] [facility] [address] [id number] [place] [address]- 4834 Jul, [facility] [place] [facility] [address] [facility] [id number] [place] [address]- 6468 Jul, [facility] [place] [facility] [address] [id number] [address]- 2366 Jul, [facility] [place] [facility] [address] [id number] [place] [address]- 5081 Jul, [facility] [place] [facility] [address] [id number] [place] [address]- 4297 Jul, [facility] [place] [facility] [address] [id number] [place] 6364 Jul, [facility] [place] [facility] [address] [facility] [id number] [place] [address]- 7543 Jul, [facility] [place] [facility] [address] [id number] [place] [address]- 2325 15 Jun, 2014 [facility] [place] [facility] [address] [id number] [place] [address]- 7316 Jun, [facility] [place] [facility] [address] [id number] [place] [address]- 9093 Jun, [facility] [place] [facility] [address] [id number] [place] [address]- 8216 May, [facility] [place] [facility] [address] [id number] [place] [address]- 5001 Apr, [facility] [place] [facility] [address] [id number] [place] [address]- 1344 Apr, [facility] [place] [facility] [address] [id number] [place] [address]- 1557 Apr, [facility] [place] [facility] [address] [id number] [place] [address]- 6202 Apr, [facility] [place] [facility] [address] [id number] [place] [address]- 5917 Apr, [facility] [place] [facility] [address] [id number] [place] [address]- 3377 Apr, [facility] [place] [facility] [address] [facility] [id number] [place] [address]- 6045 Apr, [facility] [place] [facility] [address] [id number] [place] [address]- 6052 Apr, [facility] [place] [facility] [address] [id number] [place] [address]- 7181 Mar, [facility] [place] [facility] [address] [id number] [place] [address]- 6746 Mar, [facility] [place] [facility] [address] [id number] [place] [address]- 8168 Mar, [facility] [place] [facility] [address] [id number] [place] [address]- 4720 Mar, [facility] [place] [facility] [address] [id number] [place] [address]- 8118 Mar, [facility] [place] [facility] [address] [id number] [place] [address]- 4920 Mar, [facility] [place] [facility] [address] [id number] [place] [address]- 1061 Mar, [facility] [place] [facility] [address] [id number] [place] [address]- 6281 Mar, [facility] [place] [facility] [address] [id number] [place] [address]- 6685 Mar, [facility] [place] [facility] [address] [id number] [place] [address]- 8441 Mar, [facility] [place] [facility] [address] [id number] [place] [address]- 9455 Mar, [facility] [place] [facility] [address] [id number] [place] [address]- 8055 Mar, [facility] [place] [facility] [address] [id number] [place] [address]- 0021 Mar, [facility] [place] [facility] [address] [id number] [place] [address]- 3726 Mar, [facility] [place] [facility] [address] [id number] [place] [address]- 0515 Mar, [facility] [place] [facility] [address] [id number] [place] [address]- 4860 Mar, [facility] [place] [facility] [address] [id number] [place] [address]- 7945 Mar, [facility] [place] [facility] [address] [id number] [place] [address]- 5735 Jan, [facility] [place] [facility] [address] [id number] 1049 19 Jan, 2014 [facility] [place] [facility] [address] [id number] [place] [address]- 5150 09 Sep, 2013 [facility] [place] [facility] [address] [id number] [place] [address]- 5597 09 Sep, 2013 [facility] [place] [facility] [address] [id number] [place] [address]- 6746 05 Sep, 2013 [facility] [place] [facility] [address] [id number] [place] [address]- 5546 05 Sep, 2013 [facility] [place] [facility] [address] [id number] [place] [address]- 7120 05 Sep, 2013 [facility] [place] [facility] [address] [id number] [place] [address]- 2333 05 Sep, 2013 [facility] [place] [facility] [address] [id number] [place] [address]- 5450 03 Sep, 2013 [facility] [place] [facility] [address] [id number] [place] [address]- 6433 Sep, 2013 [facility] [place] [facility] [address] [id number] [place] [address]- 1644 Jan, 2013 [facility] [place] [facility] [address] [id number] [place] [address]- 1353 Jan, 2013 [facility] [place] [facility] [address] [id number] [place] [address]- 8310 Jan, 2013 [facility] [place] [facility] [address] [id number] [place] [address]- 7103 Dec, 2013 [facility] [place] [facility] [address] [id number] [place] [address]- 8469 Dec, [facility] [place] [facility] [address] [id number] [place] [address]- 5205 Dec, [facility] [place] [facility] [address] [id number] [place] [address]- 2992 Dec, [facility] [place] [facility] [address] [id number] [place] [address]- 8310 Dec, 2013 [facility] [place] [facility] [address] [id number] [place] [address]- 5937 Dec, Via [facility] [address] [facility] [place] [id number] Dec Via [facility] 1 [facility] [id number] Dec [facility] [address] [id number] [place] [address]- 7200 Dec, [facility] [address] [id number] [place] [address]- 4336 Dec, [facility] [address] [id number] [place] [address]- 5496 Dec, [facility] [address] [id number] [place] [address]- 5562 Dec, [facility] [address] [id number] [place] [address]- 5283 Nov, [facility] [address] [id number] [place] [address]- 8948 Nov, [facility] [place] [facility] [address] [id number] [place] [address]- 2324 Nov, [facility] [place] [facility] [address] [id number] [place] [address]- 6878 Nov, [facility] [address] [id number] [place] [address]- 0294 Nov, [facility] [place] [facility] [address] [id number] [place] [address]- 9678 Nov, [facility] [place] [facility] [address] [id number] [place] [address]- 2035 Nov, [facility] [place] [facility] [address] [id number] [place] [address]- 7336 Nov, [facility] [place] [facility] [address] [id number] [place] [address]- 5365 Nov, [facility] [place] [facility] [address] [id number] [place] [address]- 1187 Nov, [facility] [place] [facility] [address] [id number] [place] [address]- 8502 Nov, [facility] [place] [facility] [address] [id number] [place] [address]- 0609 Nov, [facility] [place] [facility] [address] [id number] [place] [address]- 8751 Nov, [facility] [place] [facility] [address] [id number] [place] [address]- 1608 Oct, [facility] [place] [facility] [address] [id number] [place] [address]- 5566 Oct, [facility] [place] [facility] [address] [id number] [place] [address]- 7725 Oct, [facility] [place] [facility] [address] [id number] [place] [address]- 3378 Oct, [facility] [place] [facility] [address] [id number] [place] [address] Oct, [facility] [place] [facility] [address] [id number] [place] [address] Oct, [facility] [place] [facility] [address] [id number] [place] [address] Oct, [facility] [place] [facility] [address] [id number] [place] [address] Oct, [facility] [place] [facility] [address] [id number] [place] [address] Oct, [facility] [place] [facility] [address] [id number] [place] [address] Oct, [facility] [place] [facility] [address] [id number] [place] [address] Oct, [facility] [place] [facility] [address] [id number] [place] [address] Oct, [facility] [place] [facility] [address] [id number] [place] [address] September, [facility] [place] [facility] [address] [id number] [place] [address] September, [facility] [place] [facility] [address] [id number] [place] [address] September, [facility] [place] [facility] [address] [id number] [place] [address] September, [facility] [place] [facility] [address] [id number] [place] [address] Aug, [facility] [place] [facility] [address] [id number] [place] [address] Aug, [facility] [place] [facility] [address] [id number] [place] [address] Aug, [facility] [place] [facility] [address] [id number] [place] [address] Aug, [facility] [place] [facility] [address] [id number] [place] [address] Aug, [facility] [place] [facility] [address] [id number] [place] [address] Aug, [facility] [place] [facility] [address] [id number] [place] [address] Aug, [facility] [place] [facility] [address] [id number] [place] [address] Jul, [facility] [place] [facility] [address] [id number] [place] [address] Jul, [facility] [place] [facility] [address] [id number] [place] [address] Jul, [facility] [place] [facility] [address] [id number] [place] [address] Jul, [facility] [place] [facility] [address] [id number] [place] [address] 19 Jul, 2013 [facility] [place] [facility] [address] [id number] [place] [address] 19 Jul, 2013 [facility] [place] [facility] [address] [id number] [place] [address] 18 Jul, 2013 [facility] [place] [facility] [address] [id number] [place] [address] 18 Jul, 2013 [facility] [place] [facility] [address] [id number] [place] [address] 1993 18 Jul, 2013 [facility] [place] [facility] [address] [id number] [place] [address] 18 Jul, 2013 [facility] [place] [facility] [address] [id number] [place] [address] 18 Jul, 2013 [facility] [place] [facility] [address] [id number] [place] [address]- [address] 18 Jul, 2013 [facility] [place] [facility] [address] [id number] [place] [address]- [address] 14 Jul, 2013 [facility] [place] [facility] [address] [id number] [place] [address] 14 Jul, 2013 [facility] [place] [facility] [address] [facility] [id number] [place] [address] Jul, [facility] [place] [facility] [address] [id number] [place] [address] Jul, [facility] [place] [facility] [address] [id number] [place] [address] Jul, [facility] [place] [facility] [address] [id number] [place] [address] Jul, [facility] [place] [facility] [address] [id number] [place] [address] Jun, [facility] [place] [facility] [address] [id number] [place] [address] Jun, [facility] [facility] [address] [id number] [place] [address] 15 Jun, 2013 [facility] [place] [facility] [address] [id number] [place] [address] 5990 15 Jun, 2013 [facility] [place] [facility] [address] [id number] [place] [address]- 4069 14 Jun, 2013 [facility] [place] [facility] [address] [id number] [place] [address] 0226 14 Jun, 2013 [facility] [place] [facility] [address] [id number] [place] [address]- 9415 14 Jun, 2013 [facility] [place] [facility] [address] [id number] [place] [address]- 4062 14 Jun, 2013 [facility] [place] [facility] [address] [id number] [place] [address]- 1559 14 Jun, 2013 [facility] [place] [facility] [address] [id number] [place] [address]- 2887 14 Jun, 2013 [facility] [place] [facility] [address] [id number] [place] [address] 7660 27 May, 2013 [facility] [place] [facility] [address] [id number] [place] [address]- 7481 27 May, 2013 [facility] [place] [facility] [address] [id number] [place] [address]- 9917 26 May, 2013 [facility] [place] [facility] [address] [id number] [address] 19 May, 2013 [facility] [place] [facility] [address] [id number] [place] [address]- 0979 19 May, 2013 [facility] [place] [facility] [address] [id number] [place] [address]- 8524 16 May, 2013 [facility] [place] [facility] [address] [id number] [place] [address]- 4069 16 May, 2013 [facility] [place] [facility] [address] [id number] [place] [address]- 6206 16 May, 2013 [facility] [address] [id number] [place] [address]- 8830 16 May, 2013 [facility] [place] [facility] [address] [id number] [place] [address]- 9647 13 May, 2013 [facility] [address] [id number] [place] [address]- 7181 13 May, 2013 [facility] [place] [facility] [address] [id number] [place] [address]- 1626 11 May, 2013 [facility] [address] [id number] [place] [address]- 6948 20 Apr, 2013 [facility] [place] [facility] [address] [id number] [place] [address]- 1617 18 Apr, 2013 [facility] [address] [id number] [place] [address]- 4780 18 Apr, 2013 [facility] [place] [facility] [address] [id number] [place] [address]- 5148 13 Apr, 2013 [facility] [place] [facility] [address] [id number] [place] [address]- 2353 13 Apr, 2013 [facility] [place] [facility] [address] [facility] [id number] [place] [address]- 7814 08 Apr, 2013 [facility] [place] [facility] [address] [id number] [place] [address]- 6082 08 Apr, 2013 [facility] [place] [facility] [address] [id number] [address]- 4729 07 Apr, 2013 [facility] [place] [facility] [address] [id number] [place] [address]- 0412 07 Apr, 2013 [facility] [place] [facility] [address] [id number] [place] [address]- 1501 07 Apr, 2013 [facility] [place] [facility] [address] [facility] [id number] [place] [address] 3130 07 Apr, 2013 [facility] [place] [facility] [address] [id number] [place] [address]- 3596 Mar, [facility] [place] [facility] [address] [id number] [place] [address]- 0817 Mar, [facility] [place] [facility] [address] [id number] [place] [address]- 5655 Mar, [facility] [place] [facility] [address] [id number] [place] [address]- 6558 Mar, [facility] [place] [facility] [address] [id number] [place] [address]- 8850 Mar, [facility] [place] [facility] [address] [id number] [place] [address]- 7372 Mar, [facility] [place] [facility] [address] [id number] [place] [address]- 8315 Mar, [facility] [place] [facility] [address] [id number] [place] [address]- 2153 Mar, [facility] [place] [facility] [address] [id number] [place] [address]- 5117 Mar, [facility] [place] [facility] [address] [id number] [place] [address]- 4067 Mar, [facility] [place] [facility] [address] [id number] [place] [address]- 0038 Mar, [facility] [place] [facility] [address] [id number] [place] [address]- 6518 Mar, [facility] [place] [facility] [address] [id number] [place] [address]- 0086 30 Jan, 2013 [facility] [place] [facility] [address] [id number] [place] [address]- 2845 25 Jan, 2013 [facility] [place] [facility] [address] [id number] [place] [address]- 7337 20 Jan, 2013 [facility] [place] [facility] [address] [id number] [place] [address]- 6978 Jan, [facility] [place] [facility] [address] [id number] [place] [address]- 9309 Dec, [facility] [place] [facility] [address] [id number] [place] [address]- 1025 Dec, [facility] [place] [facility] [address] [id number] [place] [address]- 2337 Dec, [facility] [place] [facility] [address] [id number] [place] [address]- 3704 Dec, [facility] [place] [facility] [address] [id number] [place] [address]- 9258 Dec, [facility] [place] [facility] [address] [id number] [place] [address]- 8455 Dec, [facility] [place] [facility] [address] [id number] [place] [address]- 0158 Dec, [facility] [place] [facility] [address] [id number] [place] [address]- 9362 Dec, [facility] [place] [facility] [address] [id number] [place] [address]- 1619 Dec, [facility] [place] [facility] [address] [id number] [place] [address] 1905 Nov, [facility] [place] [facility] [address] [id number] [place] [address]- 7935 Nov, [facility] [place] [facility] [address] [id number] [place] [address]- 6841 Nov, [facility] [place] [facility] [address] [id number] [place] [address]- 7581 Nov, [facility] [place] [facility] [address] [id number] [place] [address]- 4096 Nov, [facility] [place] [facility] [address] [id number] [place] [address]- 9337 Nov, [facility] [place] [facility] [address] [id number] [place] [address]- 3734 Nov, [facility] [address] [id number] [place] [address]- 7088 Nov, [facility] [place] [facility] [address] [id number] [place] [address]- 8404 Oct, [facility] [address] [id number] [place] [address]- 8702 Oct, [facility] [place] [facility] [address] [id number] [place] [address]- 4070 Oct, [facility] [address] [id number] [place] [address]- 5840 Oct, [facility] [place] [facility] [address] [id number] [place] [address]- 2805 Oct, [facility] [address] [id number] [place] [address]- 3526 Oct, [facility] [address] [id number] [place] [address]- 6046 Oct, [facility] [place] [facility] [address] [id number] [place] [address]- 2502 Oct, [facility] [address] [id number] [place] [address]- 3295 Oct, [facility] [place] [facility] [address] [id number] [place] [address]- 5046 Oct, [facility] [place] [facility] [address] [id number] [place] [address]- 2687 17 Oct, 2012 [facility] [place] [facility] [address] [id number] [place] [address]- 5490 14 Oct, 2012 [facility] [place] [facility] [address] [id number] [place] [address]- 5747 07 Oct, 2012 [facility] [place] [facility] [address] [id number] [place] [address]- 7096 September, [facility] [address] [id number] [place] [address]- 7974 September, [facility] [address] [id number] [place] [address]- 2038 September, [facility] [address] [id number] [place] [address]- 0323 Aug, [facility] [address] [id number] [place] [address]- 9894 Aug, [facility] [address] [id number] [place] [address]- 5866 Aug, [facility] [address] [id number] [place] [address]- 2506 Aug, [facility] [address] [id number] [place] [address]- 2270 Aug, [facility] [address] [id number] [place] [address]- 0665 Aug, [facility] [address] [id number] [place] [address]- 4944 Aug, [facility] [address] [id number] [place] [address]- 2205 Jul, [facility] [address] [id number] [place] [address]- 4171 Jul, [facility] [place] [facility] [address] [id number] [address]- 5521 Jul, [facility] [place] [facility] [address] [id number] [place] [address]- 5023 Jul, [facility] [place] [facility] [address] [id number] [place] [address]- 0006 Jul, [facility] [place] [facility] [address] [id number] [address]- 7095 Jul, [facility] [place] [facility] [address] [id number] [place] [address]- 2964 Jul, [facility] [address] [id number] [place] [address]- 3556 Jul, [facility] [address] [id number] [place] [address]- 2106 Jul, [facility] [address] [id number] [place] [address]- 4216 Jul, [facility] [address] [id number] [place] [address] 2544 Jul, [facility] [address] [id number] [place] [address]- 0629 Jul, [facility] [address] [id number] [place] [address]- 7856 Jul, [facility] [address] [id number] [place] [address]- 4637 24 Jun, 2012 [facility] [address] [id number] [place] [address]- 9715 Jun, [facility] [address] [id number] [place] [address]- 8470 Jun, [facility] [address] [id number] [place] [address]- 4334 17 Jun, 2012 [facility] [address] [id number] [place] [address]- 6228 15 Jun, 2012 [facility] [address] [id number] [place] [address]- 8452 14 Jun, 2012 [facility] [address] [id number] [place] [address]- 6184 08 Jun, 2012 [facility] [address] [id number] [place] [address] 2544 May, [facility] [address] [id number] [place] [address]- 2453 May, [facility] [place] [facility] [address] [id number] [place] [address]- 6860 May, [facility] [place] [facility] [address] [id number] [place] [address]- 1356 May, [facility] [place] [facility] [address] [id number] [place] [address]- 2948 May, [facility] [place] [facility] [address] [id number] [place] [address]- 3806 May, [facility] [place] [facility] [address] [id number] [place] [address]- 7753 May, [facility] [place] [facility] [address] [id number] [place] [address]- 1660 May, [facility] [place] [facility] [address] [id number] [place] [address]- 5420 May, [facility] [place] [facility] [address] [id number] [place] [address]- 7807 May, [facility] [place] [facility] [address] [id number] [place] [address]- 5174 Apr, [facility] [place] [facility] [address] [id number] [place] [address]- 7628 Apr, [facility] [place] [facility] [address] [id number] [place] [address]- 5545 Apr, [facility] [place] [facility] [address] [id number] [place] [address]- 4148 Apr, [facility] [place] [facility] [address] [id number] [place] [address]- 0276 Apr, [facility] [place] [facility] [address] [id number] [place] [address]- 9626 Apr, [facility] [place] [facility] [address] [id number] [place] [address]- 7757 Apr, [facility] [place] [facility] [address] [id number] [address]- 0089 Apr, [facility] [place] [facility] [address] [id number] [place] [address]- 8757 Apr, [facility] [place] [facility] [address] [id number] [place] [address]- 4166 Apr, [facility] [place] [facility] [address] [facility] [id number] [place] [address]- 0488 Apr, [facility] [place] [facility] [address] [id number] [place] [address]- 0997 Apr, [facility] [place] [facility] [address] [id number] [place] [address]- 1191 Mar, [facility] [place] [facility] [address] [id number] [place] [address]- 0837 Mar, [facility] [place] [facility] [address] [facility] [id number] [place] [address]- 9202 Mar, [facility] [place] [facility] [address] [id number] [place] [address]- 2947 30 Mar, 2012 [facility] [place] [facility] [address] [id number] [place] [address]- 5245 Mar, [facility] [place] [facility] [address] [facility] [id number] [place] [address]- 2334 Mar, [facility] [place] [facility] [address] [id number] [place] [address]- 0076 Mar, [facility] [place] [facility] [address] [facility] [id number] [place] [address]- 3708 30 Mar, 2012 [facility] [place] [facility] [address] [id number] [place] [address]- 9059 Mar, [facility] [place] [facility] [address] [facility] [id number] [place] [address]- 6110 Mar, 2011 [facility] [place] [facility] [address] [facility] [id number] [place] [address]- 3871 16 Mar, 2012 [facility] [place] [facility] [address] [id number] [place] [address]- 4931 16 Mar, 2012 [facility] [place] [facility] [address] [id number] [place] [address]- 4069 12 Mar, 2012 [facility] [place] [facility] [address] [id number] [place] [address]- 6656 12 Mar, 2012 [facility] [place] [facility] [address] [id number] [place] [address]- 2047 03 Mar, 2012 [facility] [place] [facility] [address] [id number] [place] [address]- 7003 02 Mar, 2012 [facility] [place] [facility] [address] [id number] [place] [address]- 6903 25 Jan, 2012 [facility] [place] [facility] [address] [id number] [place] [address]- 4093 24 Jan, 2012 [facility] [place] [facility] [address] [id number] [place] [address]- 4487 22 Jan, 2012 [facility] [place] [facility] [address] [id number] [place] [address]- 0407 22 Jan, 2012 [facility] [place] [facility] [address] [id number] [place] [address]- 5550 21 Jan, 2012 [facility] [place] [facility] [address] [id number] [place] [address]- 7801 18 Jan, 2012 [facility] [place] [facility] [address] [id number] [place] [address]- 7567 14 Jan, 2012 [facility] [place] [facility] [address] [id number] [place] [address]- 2544 07 Jan, 2012 [facility] [place] [facility] [address] [id number] [place] [address]- 1423 15 Dec, 2011 [facility] [place] [facility] [address] [id number] [place] [address]- 7567 10 Dec, 2011 [facility] [place] [facility] [address] [id number] [place] [address]- 9339 Dec, [facility] [place] [facility] [address] [id number] [place] [address]- 3400 Dec, [facility] [place] [facility] [address] [id number] [place] [address]- 1185 Dec, [facility] [place] [facility] [address] [id number] [place] [address]- 8708 Dec, [facility] [place] [facility] [address] [id number] [place] [address]- 8167 Dec, [facility] [place] [facility] [address] [id number] [place] [address]- 9171 Nov, [facility] [place] [facility] [address] [id number] [place] [address]- 3274 Oct, [facility] [place] [facility] [address] [id number] [place] [address]- 7540 Aug, [facility] [place] [facility] [address] [id number] [place] [address]- 8003 Jul, [facility] [place] [facility] [address] [id number] [place] [address]- 2668 Jul, [facility] [place] [facility] [address] [id number] [place] [address]- 9191 16 Jul, 2011 [facility] [place] [facility] [address] [id number] [place] [address]- 5643 Jul, [facility] [place] [facility] [address] [id number] [place] [address]- 9312 07 Jul, 2011 [facility] [place] [facility] [address] [id number] [place] [address]- 1404 Jul, [facility] [place] [facility] [address] [id number] [place] [address]- 7755 Jul, [facility] [place] [facility] [address] [id number] [place] [address]- 0735 15 Jul, 2011 [facility] [place] [facility] [address] [id number] [place] [address]- 4993 13 Jul, 2011 [facility] [address] [id number] [place] [address]- 5336 Jul, [facility] [address] [id number] [place] [address]- 0696 02 Jul, 2011 [facility] [address] [id number] [place] [address]- 1775 Jun, [facility] [address] [id number] [place] [address]- 4041 Jun, [facility] [address] [id number] [place] [address]- 2165 Jun, [facility] [address] [id number] [place] [address]- 4197 Jun, [facility] [address] [id number] [place] [address] Jun, [facility] [address] [id number] [place] [address] Jun, [facility] [address] [id number] [place] [address] Jun, [facility] [address] [id number] [place] [address] May, [facility] [address] [id number] [place] [address] May, [facility] [address] [id number] [place] [address] May, [facility] [address] [id number] [place] [address] 14 May, 2011 [facility] [address] [id number] [place] [address] 14 May, 2011 [facility] [address] [id number] [place] [address] May, [facility] [id number] [address] May, [facility] [id number] [address] May, [facility] [id number] [address] May, [facility] [id number] [place] [address] May, [facility] [id number] [address] Apr, [facility] [id number] [place] [address] Apr, [facility] [id number] [place] [address] Apr, [facility] [id number] [place] [address] Apr, [facility] [id number] [address] Mar, [facility] [id number] [address] Mar, [facility] [id number] [address] Mar, [facility] [id number] [address] Mar, IMMUNIZATIONS No Known Immunizations SOCIAL HISTORY Never Assessed REASON FOR VISIT f/u PLAN OF CARE Activity Details Follow Up 3 Months Reason: VITAL SIGNS Height 62 in 2017-10-06 Weight 160.1 lbs 2017-10-06 Heart Rate 80 bpm 2017-10-06 Respiratory Rate 18 2017-10-06 BMI 29.28 kg/m2 2017-10-06 Blood pressure systolic 112 mmHg 2017-10-06 Blood pressure diastolic 76 mmHg 2017-10-06 MEDICATIONS Medication Instructions Dosage Frequency Start Date End Date Duration Status Quetiapine Fumarate 300 MG TAKE 1 TABLET AT BEDTIME FOR ANXIETY AND SLEEP Active ProAir HFA 90 mcg/actuation 2 puffs by Inhalation route 4 times per dayPRN Apr, Not-Taking Lovastatin 10 MG Orally Once a day 1 tablet with a meal 24h Active Polyethylene Glycol 3350 - Orally take if no BM in 2 days then take daily until stools are soft 1 scoop Dec, Not-Taking Gabapentin 800MG Orally Three times a day 1.5 tablet 8h Active Omeprazole 20 mg take 1 capsule (20 mg) by oral route once daily before a meal Apr, Not-Taking Amlodipine Besylate 2.5 MG Orally Once a day 1 tablet 24h Active Trazodone HCl 300 MG Orally Once a day 1 tablet at bedtime 24h Jul, Active Alprazolam 1MG Orally 2 times a day as needed for anxiety 1 tablet 30 days Active Metoprolol Tartrate 50 MG Orally Twice a day 1 tablet 12h Active Hydrocodone-Acetaminophen 10-325 MG Orally every 6 hrs 1 tablet as needed 6h Not-Taking RESULTS No Results PROCEDURES Procedure Date Ordered Result Body Site [facility], 2017 INSTRUCTIONS MEDICATIONS ADMINISTERED No Known Medications [...]
--- OUTSIDE RECORDS SUMMARY | 2018-01-13 21:46 | XMS REPORT ---
Author Author ITZ JUNIOR [facility] Address [address] [place] [address] Care Team Providers Care Safety Specialist Name Role Phone ROSA JUNIORA Unavailable PROBLEMS Type Condition ICD9-CM Code [id number] Code Onset Dates Condition Status SNOMED Code Problem FRANCIS (generalized anxiety disorder) F41.1 Active 60818006 Problem Conversion disorder (or hysterical neurosis, conversion type) F44.9 Active 84146604 Problem Thoracic disc herniation M51.24 Active 124759476 Problem Major depressive disorder in partial remission F32.4 Active 83288845 Problem Restless leg syndrome G25.81 Active 68206392 Problem Mild episode of recurrent major depressive disorder F33.0 Active 277430922 Problem Paroxysmal tachycardia I47.9 Active 13815302 Problem Seizure disorder G40.909 Active 184199141 Problem Constipation, unspecified constipation type K59.00 Active 11997985 Problem Slow transit constipation K59.01 Active 07934748 ALLERGIES No Information ENCOUNTERS Encounter Location Date Diagnosis [facility] [id number] [place] [address] 95695- 2858 Dec, [facility] [id number] [place] [address] 48278- 1033 Nov, [facility] [id number] [place] [address] 50801- 2361 Nov, [facility] [id number] [place] [address] 78910- 9889 September, [facility] [id number] [place] [address] 78694- 9145 September, [facility] [id number] [place] [address] 53594- 6988 September, Major depressive disorder in partial remission F32.4 ; FRANCIS ( generalized anxiety disorder) F41.1 and Restless leg syndrome G25.81 [facility] [id number] [place] [address] 46603- 0434 September, [facility] [id number] [place] [address] 59721- 9312 Jul, [facility] [id number] [place] [address] 75851- 7398 Jul, Dorsalgia, unspecified M54.9 [facility] [id number] [place] [address] 87286- 1138 Jul, Mild episode of recurrent major depressive disorder F33.0 and FRANCIS (generalized anxiety disorder) F41.1 [facility] [id number] [place] [address] 33920- 7014 May, [facility] [id number] [place] [address] 07223 -6890 May, Dysuria R30.0 and Acute cystitis with hematuria N30.01 [facility] [id number] [place] [address] 64196- 7406 Apr, [facility] [id number] [place] [address] 29139- 7495 Apr, Major depressive disorder in partial remission F32.4 and FRANCIS (generalized anxiety disorder) F41.1 [facility] [id number] [place] [address] 08636- 1929 Mar, Paroxysmal tachycardia I47.9 [facility] [id number] [place] [address] 66547- 9202 Mar, Paroxysmal tachycardia I47.9 and Pain of left lower extremity M79.605 [facility] [id number] [place] [address] 63860- 6234 Mar, FRANCIS (generalized anxiety disorder) F41.1 and Major depressive disorder in partial remission F32.4 [facility] [id number] [place] [address] 52107- 1466 Jan, [facility] [address] [address]- 1257 14 Jan, 2017 [facility] [id number] [place] [address] 49259- 6173 Jan, [facility] [id number] [place] [address] 50064 -9178 Dec, Constipation, unspecified constipation type K59.00 [facility] [id number] [place] [address] 80636- 8198 Dec, [facility] [id number] [place] [address] 37083- 9807 Nov, [facility] [id number] [place] [address] 39148- 4445 Nov, Major depressive disorder in partial remission F32.4 and FRANCIS (generalized anxiety disorder) F41.1 [facility] [id number] [place] [address] 95931 -0166 Oct, Abdominal pain R10.9 and Slow transit constipation K59.01 [facility] [id number] [place] [address] 44944- 8509 Aug, Major depressive disorder in partial remission F32.4 ; FRANCIS ( generalized anxiety disorder) F41.1 ; Conversion disorder (or hysterical neurosis, conversion type) F44.9 ; Dorsalgia, unspecified M54.9 and Long-term use of high-risk medication Z79.899 [facility] [id number] [place] [address] 26771- 1774 Aug, [facility] [id number] [place] [address] 28857- 7515 15 Jul, 2016 Paroxysmal tachycardia I47.9 [facility] [address] [address]- 3268 10 Jul, 2016 Paroxysmal tachycardia I47.9 [facility] [address] [place] [address]- 5186 Jun, [facility] [id number] [place] [address] 39394- 3934 Jun, Major depressive disorder in partial remission F32.4 ; FRANCIS ( generalized anxiety disorder) F41.1 and Conversion disorder (or hysterical neurosis, conversion type) F44.9 [facility] [id number] [place] [address] 20869 -6985 May, Pelvic pain R10.2 [facility] [id number] [place] [address] 77751 -0222 Apr, Gastroenteritis K52.9 [facility] [address] 23179 -4708 Apr, Blood in urine R31.9 and Acute cystitis with hematuria N30.01 [facility] [address] 43950- 3524 Apr, Major depressive disorder in partial remission F32.4 ; FRANCIS ( generalized anxiety disorder) F41.1 and Conversion disorder (or hysterical neurosis, conversion type) F44.9 [facility] [id number] [place] [address] 77124- 2562 Apr, [facility] [id number] [place] [address] 21013- 4020 Apr, Abnormal mammogram R92.8 [facility] [id number] [place] [address] 72565- 5732 Mar, [facility] [id number] [place] [address] 95938- 6103 Mar, Gastroenteritis K52.9 and Seizure disorder G40.909 [facility] [id number] [place] [address] 72819- 2383 Dec, [facility] [id number] [place] [address] 14097 -7691 Dec, Other headache syndrome G44.89 [facility] [address] [address]- 3146 Dec, [facility] [id number] [place] [address] 49693- 3446 Dec, Thoracic disc herniation M51.24 [facility] [id number] [place] [address] 78677- 4246 Dec, [facility] [id number] [place] [address] 53214- 8680 Nov, Major depressive disorder in partial remission F32.4 and FRANCIS (generalized anxiety disorder) F41.1 [facility] [id number] [place] [address] 34411- 0526 Nov, [facility] [id number] [place] [address] 64020- 3464 Nov, Dorsalgia, unspecified M54.9 [facility] [id number] [place] [address] 37245- 1639 Oct, [facility] [id number] [place] [address] 99713- 1030 September, [facility] [id number] [place] [address] 77689- 9886 Aug, [facility] [id number] [place] [address] 18606- 1910 Aug, Major depressive disorder in partial remission F32.4 and FRANCIS (generalized anxiety disorder) F41.1 [facility] [address] [address]- 1636 Aug, [facility] [id number] [place] [address] 69823- 3756 Jul, Abnormal mammogram R92.8 [facility] [address] [address]- 0731 Jul, [facility] [address] [place] [address]- 8202 15 Jul, 2015 [facility] [address] [address]- 7815 14 Jul, 2015 [facility] [address] [address]- 0127 Jul, [facility] [address] [address]- 1497 Jul, [facility] [id number] [place] [address] 30990- 9337 Jul, [facility] [address] [place] [address] 260370- 1580 Jun, Major depressive disorder in partial remission F32.4 and FRANCIS (generalized anxiety disorder) F41.1 [facility] [id number] [place] [address] 01311- 2657 Jun, [facility] [address] [address]- 7648 May, [facility] [address] [address]- 8152 Apr, [facility] [address] [address]- 5239 Mar, Major depressive disorder, recurrent episode, moderate F33.1 ; PTSD (post-traumatic stress disorder) F43.10 and FRANCIS (generalized anxiety disorder) F41.1 [facility] [address] [address]- 7700 Mar, [facility] [address] 8561 Mar, [facility] [address]- 0321 Mar, [facility] [address] [address]- 7689 Mar, [facility] [id number] [address]- 2913 23 Jan, 2015 [facility] [address], [place] [address]- 2823 15 Jan, 2015 [facility] [address], [place] [address]- 0361 15 Jan, 2015 [facility] [address] [place] [address] 49361- 7954 14 Jan, 2015 Thoracic disc herniation 722.11 [facility] [id number] [address]- 1946 Dec, [facility] [address] [place] [address] 34119- 4557 Dec, [facility] [address] [address]- 6191 Dec, [facility] [address] [place] [address] 54789- 0901 Nov, [facility] [address] [address]- 5957 Nov, Generalized anxiety disorder 300.02 ; Posttraumatic stress disorder 309.81 and Major depressive disorder, recurrent episode, moderate 296.32 [facility] [address] [address]- 6964 Nov, [facility] [address] [address]- 0661 Nov, [facility] [address] [address]- 8996 Oct, [facility] [address] 2102 Oct, [facility] [address] 7758 Oct, [facility] [address], [place] [address]- 2937 September, [facility] [place] [facility] [address] [id number] [place] [address]- 4192 September, [facility] [place] [facility] [address] [id number] [place] [address]- 5636 Aug, [facility] [place] [facility] [address] [id number] [place] [address]- 9107 Aug, [facility] [place] [facility] [address] [id number] [place] [address]- 4942 Jul, [facility] [place] [facility] [address] [id number] [place] [address]- 1364 Jul, [facility] [place] [facility] [address] [id number] [place] [address]- 7748 Jul, [facility] [place] [facility] [address] [id number] [place] [address]- 2874 Jul, [facility] [place] [facility] [address] [id number] [place] [address]- 0354 Jul, [facility] [place] [facility] [address] [id number] [place] [address]- 5378 Jul, [facility] [place] [facility] [address] [id number] [place] [address]- 1329 Jul, [facility] [place] [facility] [address] [id number] [place] [address]- 4662 Jul, [facility] [place] [facility] [address] [id number], [place] [address]- 0143 Jul, [facility] [place] [facility] [address] [id number] [place] [address]- 6530 Jul, [facility] [place] [facility] [address] [id number] [place] 4090 Jun, [facility] [place] [facility] [address] [id number] [place] [address]- 7781 Jun, [facility] [place] [facility] [address] [id number] [place] [address]- 0962 Jun, [facility] [place] [facility] [address] [id number] [place] [address]- 4376 May, [facility] [place] [facility] [address] [id number] [place] [address]- 5283 Apr, [facility] [place] [facility] [address] [id number] [place] [address]- 2457 Apr, [facility] [place] [facility] [address] [id number] [place] [address]- 2853 Apr, [facility] [place] [facility] [address] [id number] [place] [address]- 9716 Apr, [facility] [place] [facility] [address] [id number] [place] [address]- 3812 Apr, [facility] [place] [facility] [address] [id number] [place] [address]- 3709 Apr, [facility] [place] [facility] [address] [id number] [place] [address]- 2127 Apr, [facility] [place] [facility] [address] [id number] [place] [address]- 6171 Apr, [facility] [place] [facility] [address] [id number] [place] [address]- 8270 Mar, [facility] [place] [facility] [address] [id number] [place] [address]- 4421 Mar, [facility] [place] [facility] [address] [id number] [place] [address]- 0704 Mar, [facility] [place] [facility] [address] [id number] [place] [address]- 7549 Mar, [facility] [place] [facility] [address] [id number] [place] [address]- 3423 Mar, [facility] [place] [facility] [address] [id number] [place] [address]- 8770 Mar, [facility] [place] [facility] [address] [id number] [place] [address]- 1297 Mar, [facility] [place] [facility] [address] [id number] [place] [address]- 5987 Mar, [facility] [place] [facility] [address] [id number] [place] [address]- 6990 Mar, [facility] [place] [facility] [address] [id number] [place] [address]- 9425 Mar, [facility] [place] [facility] [address] [id number] [place] [address]- 8536 Mar, [facility] [place] [facility] [address] [id number] [place] [address]- 0666 Mar, [facility] [place] [facility] [address] [id number] [place] [address]- 2228 Mar, [facility] [place] [facility] [address] [id number] [place] [address]- 5772 Mar, [facility] [place] [facility] [address] [id number] [place] [address]- 0273 Mar, [facility] [place] [facility] [address] [id number], [place] [address]- 4313 Mar, [facility] [place] [facility] [address] [id number], [place] [address]- 7272 Mar, [facility] [place] [facility] [address] [id number], [place] [address]- 6386 Jan, 2013 [facility] [place] [facility] [address] [id number] [place] [address]- 3580 Jan, [facility] [place] [facility] [address] [id number], [place] [address]- 7457 Jan, 2013 [facility] [place] [facility] [address] [id number][place] 3049 Jan, 2013 [facility] [place] [facility] [address] [id number], [place] [address]- 7012 05 Sep, 2013 [facility] [address] [id number] [place] [address]- 1176 05 Sep, 2013 [facility] [address] [id number] [place] [address]- 3876 Jan, 2013 [facility] [address] [id number] [place] [address]- 3346 05 Jan, 2013 [facility] [address] [id number] [place] [address]- 2662 03 Jan, 2013 [facility] [address] [id number] [place] [address]- 1699 Jan, 2013 [facility] [address] [id number] [place] [address]- 3582 Jan, 2013 [facility] [address] [id number] [place] [address]- 7678 Jan, 2013 [facility] [address] [id number] [place] [address]- 6909 Jan, 2013 [facility] [address] [id number] [place] [address]- 1039 Dec, [facility] [address] [id number] [place] [address]- 1107 Dec, [facility] [address] [id number], [place] [address]- 0995 Dec, [facility] [address] [id number], [place] [address]- 6176 Dec, [facility] [address] [id number], [place] [address]- 2214 Dec, [facility] [address] [id number], [place] [address]- 8101 Dec, [facility] [place] [id number] Dec [facility] [place] [id number] Dec [facility] [place] [facility] [address] [id number] [place] [address]- 3231 Dec, [facility] [place] [facility] [address] [id number] [place] [address]- 9900 Dec, [facility] [place] [facility] [address] [id number] [place] [address]- 2987 Dec, [facility] [place] [facility] [address] [id number] [place] [address]- 6091 Dec, [facility] [place] [facility] [address] [id number] [place] [address]- 4528 Nov, [facility] [place] [facility] [address] [id number] [place] [address]- 7107 Nov, [facility] [place] [facility] [address] [id number] [place] [address]- 9819 Nov, [facility] [place] [facility] [address] [id number] [place] [address]- 6677 Nov, [facility] [place] [facility] [address] [id number] [place] [address]- 1729 Nov, [facility] [place] [facility] [address] [id number] [place] [address]- 1108 Nov, [facility] [place] [facility] [address] [id number] [place] [address]- 7847 Nov, [facility] [place] [facility] [address] [id number] [place] [address]- 5819 Nov, [facility] [place] [facility] [address] [id number] [place] [address]- 8831 Nov, [facility] [place] [facility] [address] [id number] [place] [address]- 2930 Nov, [facility] [place] [facility] [address] [id number] [place] [address]- 7246 Nov, [facility] [place] [facility] [address] [id number] [place] [address]- 0687 Nov, [facility] [place] [facility] [address] [id number] [place] [address]- 7273 Nov, [facility] [place] [facility] [address] [id number] [place] [address]- 3303 Oct, [facility] [place] [facility] [address] [id number] [place] [address]- 9558 Oct, [facility] [place] [facility] [address] [id number] [place] [address]- 0138 Oct, [facility] [place] [facility] [address] [id number] [place] [address]- 3165 Oct, [facility] [place] [facility] [address] [id number] [place] [address] Oct, [facility] [place] [facility] [address] [id number] [place] [address] Oct, [facility] [place] [facility] [address] [id number] [place] [address] Oct, [facility] [place] [facility] [address] [id number] [place] [address] Oct, [facility] [place] [facility] [address] [id number] [place] [address] Oct, [facility] [place] [facility] [address] [id number] [place] [address] Oct, [facility] [place] [facility] [address] [id number] [place] [address] Oct, [facility] [place] [facility] [address] [id number] [place] [address] Oct, [facility] [place] [facility] [address] [id number] [place] [address] September, [facility] [place] [facility] [address] [id number] [place] [address] September, [facility] [place] [facility] [address] [id number] [place] [address] September, [facility] [place] [facility] [address] [id number] [place] [address] September, [facility] [place] [facility] [address] [id number] [place] [address] Aug, [facility] [place] [facility] [address] [id number] [place] [address] Aug, [facility] [place] [facility] [address] [id number] [place] [address] Aug, [facility] [place] [facility] [address] [id number] [place] [address]- [address] Aug, [facility] [place] [facility] [address] [id number] [place] [address]- [address] Aug, [facility] [place] [facility] [address] [id number] [place] [address] Aug, [facility] [place] [facility] [address] [id number] [place] [address] Aug, [facility] [place] [facility] [address] [id number] [place] [address] Jul, [facility] [place] [facility] [address] [id number] [place] [address] Jul, [facility] [place] [facility] [address] [id number] [place] [address] Jul, [facility] [place] [facility] [address] [id number] [place] [address]- [address] Jul, [facility] [place] [facility] [address] [id number] [place] [address] Jul, [facility] [place] [facility] [address] [id number] [place] [address] Jul, [facility] [place] [facility] [address] [id number] [place] [address] Jul, [facility] [place] [facility] [address] [id number] [place] [address] Jul, [facility] [place] [facility] [address] [id number] [place] [address]- [address] 18 Jul, 2013 [facility] [place] [facility] [address] [id number] [place] [address]- [address] 18 Jul, 2013 [facility] [place] [facility] [address] [id number] [place] [address] 18 Jul, 2013 [facility] [place] [facility] [address] [id number] [place] [address]- [address] 18 Jul, 2013 [facility] [place] [facility] [address] [id number] [place] [address]- [address] 14 Jul, 2013 [facility] [place] [facility] [address] [facility] [id number] [place] [address]- [address] 14 Jul, 2013 [facility] [place] [facility] [address] [id number] [place] [address] Jul, [facility] [place] [facility] [address] [facility] [id number] [place] [address]- [address] Jul, [facility] [place] [facility] [address] [facility] [id number] [place] [address] Jul, [facility] [place] [facility] [address] [facility] [id number] [place] [address] Jul, [facility] [place] [facility] [address] [id number] [place] [address] Jun, [facility] [place] [facility] [address] [id number] [place] [address] Jun, [facility] [place] [facility] [address] [facility] [id number] [place] [address] [address] Jun, [facility] [place] [facility] [address] [facility] [id number] [place] [address] 2892 Jun, [facility] [address] [id number] [place] [address]- 1321 14 Jun, 2013 [facility] [place] [facility] [address] [id number] [place] [address]- 8025 14 Jun, 2013 [facility] [place] [facility] [address] [id number] [place] [address]- 9326 14 Jun, 2013 [facility] [place] [facility] [address] [id number] [place] [address]- 6463 14 Jun, 2013 [facility] [place] [facility] [address] [id number] [place] [address]- 2026 14 Jun, 2013 [facility] [place] [facility] [address] [id number] [place] [address]- 0304 14 Jun, 2013 [facility] [place] [facility] [address] [id number] [place] [address] 5838 27 May, 2013 [facility] [place] [facility] [address] [id number] [place] [address] 8212 27 May, 2013 [facility] [place] [facility] [address] [id number] [place] [address]- 9526 26 May, 2013 [facility] [place] [facility] [address] [id number] [place] [address]- 3859 19 May, 2013 [facility] [place] [facility] [address] [id number] [place] [address]- 0943 19 May, 2013 [facility] [place] [facility] [address] [id number] [address] 0246 16 May, 2013 [facility] [place] [facility] [address] [id number] [place] [address]- 7629 16 May, 2013 [facility] [place] [facility] [address] [id number] [place] [address]- 5733 16 May, 2013 [facility] [place] [facility] [address] [id number] [place] [address]- 9669 16 May, 2013 [facility] [place] [facility] [address] [id number] [place] [address]- 8080 13 May, 2013 [facility] [address] [id number] [place] [address]- 7965 13 May, 2013 [facility] [place] [facility] [address] [id number] [place] [address]- 0919 11 May, 2013 [facility] [place] [facility] [address] [id number] [place] [address]- 9622 20 Apr, 2013 [facility] [place] [facility] [address] [id number] [place] [address]- 2941 18 Apr, 2013 [facility] [place] [facility] [address] [id number] [place] [address]- 0221 18 Apr, 2013 [facility] [place] [facility] [address] [id number] [place] [address]- 0937 13 Apr, 2013 [facility] [place] [facility] [address] [id number] [place] [address]- 7101 Apr, [facility] [place] [facility] [address] [id number] [place] [address]- 9621 08 Apr, 2013 [facility] [place] [facility] [address] [id number] [place] [address]- 8976 08 Apr, 2013 [facility] [place] [facility] [address] [facility] [id number] [place] [address]- 0729 Apr, [facility] [place] [facility] [address] [id number] [place] [address]- 0113 07 Apr, 2013 [facility] [place] [facility] [address] [id number], [place] [address] 4584 Apr, [facility] [place] [facility] [address] [id number], [place] [address] 7086 Apr, [facility] [place] [facility] [address] [facility] [id number], [place] [address] 9503 Mar, [facility] [place] [facility] [address] [facility] [id number], [place] [address] 7948 Mar, [facility] [place] [facility] [address] [id number] [place] [address]- 0042 Mar, [facility] [place] [facility] [address] [id number] [place] [address]- 9017 Mar, [facility] [place] [facility] [address] [id number] [place] [address]- 5248 Mar, [facility] [place] [facility] [address] [id number] [place] [address]- 0857 Mar, [facility] [place] [facility] [address] [id number] [place] [address]- 8985 Mar, [facility] [place] [facility] [address] [id number] [place] [address]- 1661 Mar, [facility] [place] [facility] [address] [id number] [place] [address]- 4736 Mar, [facility] [place] [facility] [address] [id number] [place] [address]- 1122 Mar, [facility] [place] [facility] [address] [id number] [place] [address]- 4487 15 Mar, 2013 [facility] [place] [facility] [address] [id number] [place] [address]- 2805 Mar, [facility] [place] [facility] [address] [id number] [place] [address]- 1648 30 Jan, 2013 [facility] [place] [facility] [address] [id number] [place] [address]- 8560 25 Jan, 2013 [facility] [place] [facility] [address] [id number] [place] [address]- 1501 20 Jan, 2013 [facility] [place] [facility] [address] [id number] [place] [address]- 2545 10 Jan, 2013 [facility] [place] [facility] [address] [id number] [place] [address]- 2549 27 Dec, 2012 [facility] [place] [facility] [address] [id number] [place] [address]- 1357 Dec, [facility] [place] [facility] [address] [id number] [place] [address]- 3156 Dec, [facility] [place] [facility] [address] [id number] [place] [address]- 0026 Dec, [facility] [place] [facility] [address] [id number] [place] [address]- 8783 Dec, [facility] [place] [facility] [address] [id number] [place] [address]- 5626 Dec, [facility] [place] [facility] [address] [id number] [place] [address]- 9411 Dec, [facility] [place] [facility] [address] [id number] [place] [address]- 9920 Dec, [facility] [place] [facility] [address] [id number] [place] [address]- 3063 Dec, [facility] [place] [facility] [address] [id number] [place] [address]- 6903 Nov, [facility] [place] [facility] [address] [id number] [place] [address]- 9391 Nov, [facility] [place] [facility] [address] [id number] [place] [address]- 8404 Nov, [facility] [place] [facility] [address] [id number] [place] [address]- 4446 Nov, [facility] [place] [facility] [address] [id number] [place] [address]- 6937 Nov, [facility] [place] [facility] [address] [id number] [place] [address]- 5188 Nov, [facility] [place] [facility] [address] [id number] [place] [address]- 0093 Nov, [facility] [place] [facility] [address] [id number] [place] [address]- 1840 Nov, [facility] [place] [facility] [address] [id number] [place] [address]- 7212 27 Oct, 2012 [facility] [address] [id number] [place] [address]- 6644 Oct, [facility] [address] [id number] [place] [address]- 0398 Oct, [facility] [address] [id number] [place] [address]- 1328 Oct, [facility] [address] [id number] [place] [address]- 4558 Oct, [facility] [address] [id number] [place] [address]- 9467 Oct, [facility] [address] [id number] [place] [address]- 7517 Oct, [facility] [address] [id number] [place] [address]- 0199 Oct, [facility] [address] [id number] [place] [address]- 3004 19 Oct, 2012 [facility] [address] [id number] [place] [address]- 1581 18 Oct, 2012 [facility] [address] [id number] [place] [address]- 6230 17 Oct, 2012 [facility] [address] [id number] [place] [address]- 2221 14 Oct, 2012 [facility] [address] [id number] [place] [address]- 4091 07 Oct, 2012 [facility] [place] [facility] [address] [id number] [place] [address]- 5028 September, [facility] [place] [facility] [address] [id number] [place] [address]- 1561 September, [facility] [address] [id number] [place] [address]- 5364 September, [facility] [place] [facility] [address] [id number] [place] [address]- 5346 Aug, [facility] [address] [id number] [place] [address]- 4246 Aug, [facility] [address] [id number] [place] [address]- 6226 Aug, [facility] [place] [facility] [address] [id number] [place] [address]- 3590 Aug, [facility] [address] [id number] [place] [address]- 9285 Aug, [facility] [address] [id number] [place] [address]- 7848 Aug, [facility] [address] [id number] [place] [address]- 8004 Aug, [facility] [address] [id number] [place] [address]- 0240 Jul, [facility] [address] [id number] [place] [address]- 1375 Jul, [facility] [address] [id number] [place] [address]- 7268 Jul, [facility] [place] [facility] [address] [id number] [place] [address]- 3422 Jul, [facility] [place] [facility] [address] [id number] [place] [address]- 3253 Jul, [facility] [place] [facility] [address] [id number] [place] [address]- 9943 Jul, [facility] [place] [facility] [address] [id number] [place] [address]- 9162 Jul, [facility] [place] [facility] [address] [id number] [place] [address]- 1285 Jul, [facility] [place] [facility] [address] [id number] [place] [address]- 9841 20 Jul, 2012 [facility] [address] [id number] [place] [address]- 4136 Jul, [facility] [address] [id number] [place] [address]- 8946 Jul, [facility] [address] [id number] [place] [address]- 8436 Jul, [facility] [address] [id number] [place] [address] 254 Jul, [facility] [address] [id number] [place] [address]- 5382 24 Jun, 2012 [facility] [address] [id number] [place] [address]- 5841 Jun, [facility] [address] [id number] [place] [address]- 9027 Jun, [facility] [address] [id number] [place] [address]- 9408 17 Jun, 2012 [facility] [address] [id number] [place] [address]- 6940 15 Jun, 2012 [facility] [address] [id number] [place] [address]- 5747 14 Jun, 2012 [facility] [address] [id number] [place] [address]- 5675 Jun, [facility] [address] [id number] [place] [address]- 8917 May, [facility] [address] [id number] [place] [address]- 4693 May, [facility] [address] [id number] [place] [address]- 4043 May, [facility] [address] [id number] [place] [address]- 3863 May, [facility] [place] [facility] [address] [id number] [place] [address]- 3327 May, [facility] [place] [facility] [address] [id number] [place] [address]- 9485 May, [facility] [place] [facility] [address] [id number] [place] [address]- 3223 May, [facility] [place] [facility] [address] [id number] [place] [address]- 5056 May, [facility] [place] [facility] [address] [id number] [place] [address]- 5245 May, [facility] [place] [facility] [address] [id number] [place] [address]- 8495 May, [facility] [place] [facility] [address] [id number] [place] [address]- 4520 Apr, [facility] [place] [facility] [address] [id number] [place] [address]- 8046 Apr, [facility] [place] [facility] [address] [id number] [place] [address]- 1539 Apr, [facility] [place] [facility] [address] [id number] [place] [address]- 5251 Apr, [facility] [place] [facility] [address] [id number] [place] [address]- 6573 Apr, [facility] [place] [facility] [address] [id number], [place] [address]- 8030 Apr, [facility] [place] [facility] [address] [id number] [place] [address]- 0523 Apr, [facility] [place] [facility] [address] [id number] [place] [address]- 7316 Apr, [facility] [place] [facility] [address] [id number] [place] [address]- 7431 Apr, [facility] [place] [facility] [address] [id number], [place] [address]- 5825 Apr, [facility] [place] [facility] [address] [id number] [place] [address]- 6568 Apr, [facility] [place] [facility] [address] [id number] [place] [address]- 8057 Apr, [facility] [place] [facility] [address] [id number] [place] [address]- 5174 Mar, [facility] [place] [facility] [address] [id number] [place] [address]- 1219 Mar, 2011 [facility] [place] [facility] [address] [id number] [place] [address]- 3009 Mar, [facility] [place] [facility] [address] [id number] [place] [address]- 0629 Mar, [facility] [place] [facility] [address] [id number], [place] [address]- 0092 Mar, [facility] [place] [facility] [address] [id number] [place] [address]- 9922 Mar, [facility] [place] [facility] [address] [id number], [place] [address]- 9878 Mar, [facility] [place] [facility] [address] [id number], [place] [address]- 0820 Mar, [facility] [place] [facility] [address] [id number], [place] [address]- 6518 Mar, [facility] [place] [facility] [address] [id number], [place] [address]- 2244 Mar, [facility] [place] [facility] [address] [id number], [place] [address]- 8383 Mar, [facility] [place] [facility] [address] [id number], [place] [address]- 7984 Mar, [facility] [place] [facility] [address] [facility] [id number], [place] [address]- 2451 Mar, [facility] [place] [facility] [address] [id number] [place] [address]- 5444 12 Mar, 2012 [facility] [place] [facility] [address] [id number] [place] [address]- 9305 03 Mar, 2012 [facility] [place] [facility] [address] [id number] [place] [address]- 3646 Mar, [facility] [place] [facility] [address] [id number] [place] [address]- 3096 25 Jan, 2012 [facility] [place] [facility] [address] [id number] [place] [address]- 4712 24 Jan, 2012 [facility] [place] [facility] [address] [id number] [place] [address]- 1218 22 Jan, 2012 [facility] [place] [facility] [address] [id number] [place] [address]- 0501 22 Jan, 2012 [facility] [place] [facility] [address] [id number] [place] [address]- 4368 21 Jan, 2012 [facility] [place] [facility] [address] [id number] [place] [address]- 8081 18 Jan, 2012 [facility] [place] [facility] [address] [id number] [place] [address]- 6327 14 Jan, 2012 [facility] [place] [facility] [address] [id number] [place] [address]- 0628 07 Jan, 2012 [facility] [place] [facility] [address] [id number] [place] [address]- 9942 15 Dec, 2011 [facility] [place] [facility] [address] [id number] [place] [address]- 3076 10 Dec, 2011 [facility] [place] [facility] [address] [id number] [place] [address]- 4494 09 Dec, 2011 [facility] [place] [facility] [address] [id number] [place] [address]- 5036 08 Dec, 2011 [facility] [place] [facility] [address] [id number] [place] [address]- 9247 Dec, [facility] [place] [facility] [address] [id number] [place] [address]- 3569 Dec, [facility] [place] [facility] [address] [id number] [place] [address]- 9857 Dec, [facility] [place] [facility] [address] [id number] [place] [address]- 9680 Nov, [facility] [place] [facility] [address] [id number] [place] [address]- 0370 Oct, [facility] [place] [facility] [address] [id number] [place] [address]- 1273 Aug, [facility] [place] [facility] [address] [id number] [place] [address]- 5367 Jul, [facility] [place] [facility] [address] [id number] [place] [address]- 6028 Jul, [facility] [place] [facility] [address] [id number] [place] [address]- 9305 16 Jul, 2011 [facility] [place] [facility] [address] [id number] [place] [address]- 4957 14 Jul, 2011 [facility] [place] [facility] [address] [id number] [place] [address]- 1730 Jul, [facility] [place] [facility] [address] [id number] [place] [address]- 3573 Jul, [facility] [place] [facility] [address] [id number] [place] [address]- 8654 Jul, [facility] [place] [facility] [address] [id number] [place] [address]- 2680 15 Jul, 2011 [facility] [place] [facility] [address] [id number] [place] [address]- 8211 13 Jul, 2011 [facility] [place] [facility] [address] [id number] [place] [address]- 5038 Jul, [facility] [place] [facility] [address] [id number] [place] [address]- 7476 02 Jul, 2011 [facility] [address] [id number] [place] [address]- 0712 Jun, [facility] [address] [id number] [place] [address]- 4717 Jun, [facility] [address] [id number] [place] [address]- 4420 Jun, [facility] [address] [id number] [place] [address]- 1113 Jun, [facility] [address] [id number] [place] [address]- 7355 Jun, [facility] [address] [id number] [place] [address]- 8287 Jun, [facility] [address] [id number] [place] [address]- 1406 Jun, [facility] [address] [id number] [place] [address]- 9811 May, [facility] [address] [id number] [place] [address]- 9565 May, [facility] [address] [id number] [place] [address]- 2206 May, [facility] [address] [id number] [place] [address]- 9941 14 May, 2011 [facility] [address] [id number] [place] [address]- 3648 14 May, 2011 [facility] [address] [id number] [place] [address] May, [facility] [address] [id number] [place] [address] May, [facility] [address] [id number] [place] [address] May, [facility] [address] [id number] [address] May, [facility] [address] [facility] [id number], [place] [address] May, [facility] [address] [facility] [id number], [place] [address] Apr, [facility] [address] [facility] [id number], [place] [address] Apr, [facility] [address] [facility] [id number], [place] [address] Apr, [facility] [address] [facility] [id number], [place] [address] Apr, [facility] [id number], [place] [address] Mar, [facility] [id number], [place] [address] Mar, [facility] [address] [id number], [place] [address] Mar, [facility] [address] [id number], [place] [address] Mar, IMMUNIZATIONS No Known Immunizations SOCIAL HISTORY [...]
--- OUTSIDE RECORDS SUMMARY | 2018-01-13 21:55 | XMS REPORT ---
Author Author ITZ JUNIOR [facility] Address [address] [place] [address] Care Team Providers Care Cam Maker Name Role Phone ROSA JUNIORA Unavailable PROBLEMS Type Condition ICD9-CM Code SUV51-VF Code Onset Dates Condition Status SNOMED Code Problem FRANCIS (generalized anxiety disorder) F41.1 Active 16280243 Problem Conversion disorder (or hysterical neurosis, conversion type) F44.9 Active 46238823 Problem Thoracic disc herniation M51.24 Active 466290512 Problem Major depressive disorder in partial remission F32.4 Active 65566325 Problem Restless leg syndrome G25.81 Active 86816547 Problem Mild episode of recurrent major depressive disorder F33.0 Active 496893236 Problem Paroxysmal tachycardia I47.9 Active 02567334 Problem Seizure disorder G40.909 Active 138127682 Problem Constipation, unspecified constipation type K59.00 Active 32331677 Problem Slow transit constipation K59.01 Active 12907869 ALLERGIES No Information ENCOUNTERS Encounter Location Date Diagnosis [facility] [id number] [place] [address] 87093- 8207 Dec, [facility] [id number] [place] [address] 85520- 9940 Nov, [facility] [id number] [place] [address] 07579- 0768 Nov, [facility] [id number] [place] [address] 83617- 7129 September, [facility] [id number] [place] [address] 93247- 0428 September, [facility] [id number] [place] [address] 63454- 8749 September, Major depressive disorder in partial remission F32.4 ; FRANCIS ( generalized anxiety disorder) F41.1 and Restless leg syndrome G25.81 [facility] [id number] [place] [address] 41923- 0650 September, [facility] [id number] [place] [address] 23981- 4341 Jul, [facility] [id number] [place] [address] 02552- 0777 Jul, Dorsalgia, unspecified M54.9 [facility] [id number] [place] [address] 94478- 6628 Jul, Mild episode of recurrent major depressive disorder F33.0 and FRANCIS (generalized anxiety disorder) F41.1 [facility] [id number] [place] [address] 31135- 8365 May, [facility] [id number] [place] [address] 73713 -6367 May, Dysuria R30.0 and Acute cystitis with hematuria N30.01 [facility] [id number] [place] [address] 91938- 7752 Apr, [facility] [id number] [place] [address] 22830- 8936 Apr, Major depressive disorder in partial remission F32.4 and FRANCIS (generalized anxiety disorder) F41.1 [facility] [id number] [place] [address] 00943- 7409 Mar, Paroxysmal tachycardia I47.9 [facility] [id number] [place] [address] 63978- 2620 Mar, Paroxysmal tachycardia I47.9 and Pain of left lower extremity M79.605 [facility] [id number] [place] [address] 57689- 1237 Mar, FRANCIS (generalized anxiety disorder) F41.1 and Major depressive disorder in partial remission F32.4 [facility] [id number] [place] [address] 28897- 2024 Jan, [facility] [address] [address] 8731 14 Jan, 2017 [facility] [id number] [place] [address] 34602- 1290 Jan, [facility] [id number] [place] [address] 87990 -7597 Dec, Constipation, unspecified constipation type K59.00 [facility] [id number] [place] [address] 27423- 2150 Dec, [facility] [id number] [place] [address] 29540- 2103 Nov, [facility] [id number] [place] [address] 76078- 9426 Nov, Major depressive disorder in partial remission F32.4 and FRANCIS (generalized anxiety disorder) F41.1 [facility] [id number] [place] [address] 93266 -1705 Oct, Abdominal pain R10.9 and Slow transit constipation K59.01 [facility] [id number] [place] [address] 67665- 2548 Aug, Major depressive disorder in partial remission F32.4 ; FRANCIS ( generalized anxiety disorder) F41.1 ; Conversion disorder (or hysterical neurosis, conversion type) F44.9 ; Dorsalgia, unspecified M54.9 and Long-term use of high-risk medication Z79.899 [facility] [id number] [place] [address] 74954- 6958 Aug, [facility] [id number] [place] [address] 55594- 2409 15 Jul, 2016 Paroxysmal tachycardia I47.9 [facility] [address] [address]- 0848 10 Jul, 2016 Paroxysmal tachycardia I47.9 [facility] [id number] [place] [address]- 3585 Jun, [facility] [id number] [place] [address] 00539- 2219 Jun, Major depressive disorder in partial remission F32.4 ; FRANCIS ( generalized anxiety disorder) F41.1 and Conversion disorder (or hysterical neurosis, conversion type) F44.9 [facility] [id number] [place] [address] 23068 -8252 May, Pelvic pain R10.2 [facility] [id number] [place] [address] 79108 -4982 Apr, Gastroenteritis K52.9 [facility] [address] 70045 -1243 Apr, Blood in urine R31.9 and Acute cystitis with hematuria N30.01 [facility] [address] 80599- 0933 Apr, Major depressive disorder in partial remission F32.4 ; FRANCIS ( generalized anxiety disorder) F41.1 and Conversion disorder (or hysterical neurosis, conversion type) F44.9 [facility] [id number] [place] [address] 14560- 3670 Apr, [facility] [id number] [place] [address] 16751- 2214 Apr, Abnormal mammogram R92.8 [facility] [id number] [place] [address] 77599- 9120 Mar, [facility] [id number] [place] [address] 82925- 2237 Mar, Gastroenteritis K52.9 and Seizure disorder G40.909 [facility] [id number] [place] [address] 42931- 2976 Dec, [facility] [id number] [place] [address] 50028 -3588 Dec, Other headache syndrome G44.89 [facility] [address] [address]- 9266 Dec, [facility] [id number] [place] [address] 57513- 9186 Dec, Thoracic disc herniation M51.24 [facility] [id number] [place] [address] 92948- 4836 Dec, [facility] [id number] [place] [address] 82531- 6412 Nov, Major depressive disorder in partial remission F32.4 and FRANCIS (generalized anxiety disorder) F41.1 [facility] [id number] [place] [address] 10098- 0636 Nov, [facility] [id number] [place] [address] 84130- 1322 Nov, Dorsalgia, unspecified M54.9 [facility] [id number] [place] [address] 82779- 9232 Oct, [facility] [id number] [place] [address] 98477- 1792 September, [facility] [id number] [place] [address] 76948- 9324 Aug, [facility] [id number] [place] [address] 69740- 0106 Aug, Major depressive disorder in partial remission F32.4 and FRANCIS (generalized anxiety disorder) F41.1 [facility] [address] [address]- 3876 Aug, [facility] [id number] [place] [address] 64848- 4206 Jul, Abnormal mammogram R92.8 [facility] [address] [address]- 4803 Jul, [facility] [address] [place] [address]- 5063 15 Jul, 2015 [facility] [address] [address]- 3739 14 Jul, 2015 [facility] [address] [address]- 5079 Jul, [facility] [address] [address]- 2691 Jul, [facility] [id number] [place] [address] 38832- 0657 Jul, [facility] [id number] [place] [address] 176336- 5497 Jun, Major depressive disorder in partial remission F32.4 and FRANCIS (generalized anxiety disorder) F41.1 [facility] [id number] [place] [address] 79467- 3337 Jun, [facility] [address] [address]- 2209 May, [facility] [address] [address]- 2387 Apr, [facility] [address] [address]- 5245 Mar, Major depressive disorder, recurrent episode, moderate F33.1 ; PTSD (post-traumatic stress disorder) F43.10 and FRANCIS (generalized anxiety disorder) F41.1 [facility] [address] [address]- 5137 Mar, [facility] [id number] 9896 Mar, [facility] [address] 7540 Mar, [facility] [address] [address]- 0533 Mar, [facility] [id number] [address]- 3073 23 Jan, 2015 [facility] [address] [address]- 9633 15 Jan, 2015 [facility] [address] [address]- 0153 15 Jan, 2015 [facility] [address] [place] [address] 21965- 8670 14 Jan, 2015 Thoracic disc herniation 722.11 [facility] [id number] [address]- 5949 Dec, [facility] [id number] [place] [address] 45319- 8597 Dec, [facility] [address] [address]- 8199 Dec, [facility] [id number] [place] [address] 79045- 1111 Nov, [facility] [address] [address]- 6562 Nov, Generalized anxiety disorder 300.02 ; Posttraumatic stress disorder 309.81 and Major depressive disorder, recurrent episode, moderate 296.32 [facility] [address] [address]- 8392 Nov, [facility] [address] [address]- 0350 Nov, [facility] [address], [place] [address]- 0562 Oct, [facility] [address] 8688 Oct, [facility] [address] 8225 Oct, [facility] [address] [address]- 5292 September, [facility] [place] [facility] [address] [id number] [place] [address]- 6158 September, [facility] [place] [facility] [address] [id number] [place] [address]- 0203 Aug, [facility] [place] [facility] [address] [id number] [place] [address]- 2360 Aug, [facility] [place] [facility] [address] [id number] [place] [address]- 6817 Jul, [facility] [place] [facility] [address] [id number] [place] [address]- 4842 Jul, [facility] [place] [facility] [address] [id number] [place] [address]- 2244 Jul, [facility] [place] [facility] [address] [id number] [place] [address]- 4498 Jul, [facility] [place] [facility] [address] [id number] [place] [address]- 3506 Jul, [facility] [place] [facility] [address] [id number] [place] [address]- 0741 Jul, [facility] [place] [facility] [address] [id number] [place] [address]- 5364 Jul, [facility] [place] [facility] [address] [id number] [place] [address]- 6114 Jul, [facility] [place] [facility] [address] [id number], [place] [address]- 5933 Jul, [facility] [place] [facility] [address] [id number] [place] [address]- 0468 Jul, [facility] [place] [facility] [address] [id number] [place] 9324 Jun, [facility] [place] [facility] [address] [id number] [place] [address]- 1173 Jun, [facility] [place] [facility] [address] [id number] [place] [address]- 4618 Jun, [facility] [place] [facility] [address] [id number] [place] [address]- 0322 May, [facility] [place] [facility] [address] [id number] [place] [address]- 4746 Apr, [facility] [place] [facility] [address] [id number] [place] [address]- 6156 Apr, [facility] [place] [facility] [address] [id number] [place] [address]- 7482 Apr, [facility] [place] [facility] [address] [id number] [place] [address]- 5339 Apr, [facility] [place] [facility] [address] [id number] [place] [address]- 9294 Apr, [facility] [place] [facility] [address] [id number] [place] [address]- 1249 Apr, [facility] [place] [facility] [address] [id number] [place] [address]- 1853 Apr, [facility] [place] [facility] [address] [id number] [place] [address]- 6659 Apr, [facility] [place] [facility] [address] [id number] [place] [address]- 3550 Mar, [facility] [place] [facility] [address] [id number] [place] [address]- 1244 Mar, [facility] [place] [facility] [address] [id number] [place] [address]- 7699 Mar, [facility] [place] [facility] [address] [id number] [place] [address]- 5408 Mar, [facility] [place] [facility] [address] [id number] [place] [address]- 6394 Mar, [facility] [place] [facility] [address] [id number] [place] [address]- 2175 Mar, [facility] [place] [facility] [address] [id number] [place] [address]- 7991 Mar, [facility] [place] [facility] [address] [id number] [place] [address]- 6024 Mar, [facility] [place] [facility] [address] [id number] [place] [address]- 1458 Mar, [facility] [place] [facility] [address] [id number] [place] [address]- 8248 Mar, [facility] [place] [facility] [address] [id number] [place] [address]- 6409 Mar, [facility] [place] [facility] [address] [id number] [place] [address]- 8603 Mar, [facility] [place] [facility] [address] [id number] [place] [address]- 7695 Mar, [facility] [place] [facility] [address] [id number] [place] [address]- 6179 Mar, [facility] [place] [facility] [address] [id number] [place] [address]- 3349 Mar, [facility] [place] [facility] [address] [id number], [place] [address]- 1079 Mar, [facility] [place] [facility] [address] [id number], [place] [address]- 6884 Mar, [facility] [place] [facility] [address] [id number], [place] [address]- 8676 Jan, 2013 [facility] [place] [facility] [address] [id number] [place] [address]- 3190 Jan, [facility] [place] [facility] [address] [id number], [place] [address]- 6951 Jan, 2013 [facility] [place] [facility] [address] [id number] 5699 Jan, 2013 [facility] [place] [facility] [address] [id number], [place] [address]- 6758 05 Sep, 2013 [facility] [address] [id number] [place] [address]- 0746 05 Sep, 2013 [facility] [address] [id number] [place] [address]- 5066 Jan, 2013 [facility] [address] [id number] [place] [address]- 9416 05 Jan, 2013 [facility] [address] [id number] [place] [address]- 5341 03 Jan, 2013 [facility] [address] [id number] [place] [address]- 8622 Jan, 2013 [facility] [address] [id number] [place] [address]- 7291 Jan, 2013 [facility] [address] [id number] [place] [address]- 2418 Jan, 2013 [facility] [address] [id number] [place] [address]- 8658 Jan, 2013 [facility] [address] [id number] [place] [address]- 0669 Dec, [facility] [address] [id number] [place] [address]- 8036 Dec, [facility] [address] [id number], [place] [address]- 5291 Dec, [facility] [address] [id number], [place] [address]- 9833 Dec, [facility] [address] [id number], [place] [address]- 4036 Dec, [facility] [address] [id number], [place] [address]- 5568 Dec, [facility] [address] [place] [id number] Dec [facility] [address] [place] [id number] Dec [facility] [place] [facility] [address] [id number] [place] [address]- 6885 Dec, [facility] [place] [facility] [address] [id number] [place] [address]- 6667 Dec, [facility] [place] [facility] [address] [id number] [place] [address]- 1953 Dec, [facility] [place] [facility] [address] [id number] [place] [address]- 6374 Dec, [facility] [place] [facility] [address] [id number] [place] [address]- 5364 Nov, [facility] [place] [facility] [address] [id number] [place] [address]- 8063 Nov, [facility] [place] [facility] [address] [id number] [place] [address]- 9395 Nov, [facility] [place] [facility] [address] [id number] [place] [address]- 1675 Nov, [facility] [place] [facility] [address] [id number] [place] [address]- 5060 Nov, [facility] [place] [facility] [address] [id number] [place] [address]- 6626 Nov, [facility] [place] [facility] [address] [id number] [place] [address]- 0372 Nov, [facility] [place] [facility] [address] [id number] [place] [address]- 1926 Nov, [facility] [place] [facility] [address] [id number] [place] [address]- 3047 Nov, [facility] [place] [facility] [address] [id number] [place] [address]- 0478 Nov, [facility] [place] [facility] [address] [id number] [place] [address]- 8354 Nov, [facility] [place] [facility] [address] [id number] [place] [address]- 2319 Nov, [facility] [place] [facility] [address] [id number] [place] [address]- 2285 Nov, [facility] [place] [facility] [address] [id number] [place] [address]- 7344 Oct, [facility] [place] [facility] [address] [id number] [place] [address]- 6550 Oct, [facility] [place] [facility] [address] [id number] [place] [address]- 7884 Oct, [facility] [place] [facility] [address] [id number] [place] [address]- 6418 Oct, [facility] [place] [facility] [address] [id number] [place] [address]- 2175 Oct, [facility] [place] [facility] [address] [id number] [place] [address]- 8617 Oct, [facility] [place] [facility] [address] [id number] [place] [address]- 1456 Oct, [facility] [place] [facility] [address] [id number] [place] [address]- 2394 Oct, [facility] [place] [facility] [address] [id number] [place] [address]- 4077 Oct, [facility] [place] [facility] [address] [id number] [place] [address]- 8980 Oct, [facility] [place] [facility] [address] [id number] [place] [address]- 6697 Oct, [facility] [place] [facility] [address] [id number] [place] [address] Oct, [facility] [place] [facility] [address] [id number] [place] [address] September, [facility] [place] [facility] [address] [id number] [place] [address] September, [facility] [place] [facility] [address] [id number] [place] [address] September, [facility] [place] [facility] [address] [id number] [place] [address] September, [facility] [place] [facility] [address] [id number] [place] [address] Aug, [facility] [place] [facility] [address] [id number] [place] [address] Aug, [facility] [place] [facility] [address] [id number] [place] [address] Aug, [facility] [place] [facility] [address] [id number] [place] [address] Aug, [facility] [place] [facility] [address] [id number] [place] [address] Aug, [facility] [place] [facility] [address] [id number] [place] [address] Aug, [facility] [place] [facility] [address] [id number] [place] [address] Aug, [facility] [place] [facility] [address] [id number] [place] [address] Jul, [facility] [place] [facility] [address] [id number] [place] [address] Jul, [facility] [place] [facility] [address] [id number] [place] [address] Jul, [facility] [place] [facility] [address] [id number] [place] [address] Jul, [facility] [place] [facility] [address] [id number] [place] [address] Jul, [facility] [place] [facility] [address] [id number] [place] [address] Jul, [facility] [place] [facility] [address] [id number] [place] [address] Jul, [facility] [place] [facility] [address] [id number] [place] [address] Jul, [facility] [place] [facility] [address] [id number] [place] [address] 18 Jul, 2013 [facility] [place] [facility] [address] [id number] [place] [address] 18 Jul, 2013 [facility] [place] [facility] [address] [id number] [place] [address] 18 Jul, 2013 [facility] [place] [facility] [address] [id number] [place] [address] 18 Jul, 2013 [facility] [place] [facility] [address] [id number] [place] [address] 14 Jul, 2013 [facility] [place] [facility] [address] [facility] [id number] [place] [address]- [address] 14 Jul, 2013 [facility] [place] [facility] [address] [id number] [place] [address] Jul, [facility] [place] [facility] [address] [facility] [id number] [place] [address] Jul, [facility] [place] [facility] [address] [facility] [id number] [place] [address] Jul, [facility] [place] [facility] [address] [facility] [id number] [place] [address] Jul, [facility] [place] [facility] [address] [id number] [place] [address] Jun, [facility] [place] [facility] [address] [id number] [place] [address] Jun, [facility] [place] [facility] [address] [facility] [id number] [place] [address] Jun, [facility] [place] [facility] [address] [facility] [id number] [place] [address] Jun, [facility] [address] [id number] [place] [address] 14 Jun, 2013 [facility] [place] [facility] [address] [id number] [place] [address] 14 Jun, 2013 [facility] [place] [facility] [address] [id number] [place] [address]- [address] 14 Jun, 2013 [facility] [place] [facility] [address] [id number] [place] [address] 14 Jun, 2013 [facility] [place] [facility] [address] [id number] [place] [address]- [address] 14 Jun, 2013 [facility] [place] [facility] [address] [id number] [place] [address] 14 Jun, 2013 [facility] [place] [facility] [address] [id number] [place] [address]- [address] 27 May, 2013 [facility] [place] [facility] [address] [id number] [place] [address] 27 May, 2013 [facility] [place] [facility] [address] [id number] [place] [address] 26 May, 2013 [facility] [place] [facility] [address] [id number] [place] [address] 19 May, 2013 [facility] [place] [facility] [address] [id number] [place] [address] 69[address] 19 May, 2013 [facility] [place] [facility] [address] [id number], [place] [address] 16 May, 2013 [facility] [place] [facility] [address] [id number] [place] [address]- 0595 16 May, 2013 [facility] [place] [facility] [address] [id number] [place] [address]- 9340 16 May, 2013 [facility] [place] [facility] [address] [id number] [place] [address] 8503 16 May, 2013 [facility] [place] [facility] [address] [id number] [place] [address]- 6921 13 May, 2013 [facility] [address] [id number] [place] [address]- 0446 13 May, 2013 [facility] [place] [facility] [address] [id number] [place] [address]- 7842 11 May, 2013 [facility] [place] [facility] [address] [id number] [place] [address] 2097 20 Apr, 2013 [facility] [place] [facility] [address] [id number] [place] [address]- 8501 18 Apr, 2013 [facility] [place] [facility] [address] [id number] [place] [address]- 5752 18 Apr, 2013 [facility] [place] [facility] [address] [id number] [place] [address]- 4975 13 Apr, 2013 [facility] [place] [facility] [address] [id number] [place] [address]- 3124 Apr, [facility] [place] [facility] [address] [id number] [place] [address]- 0099 08 Apr, 2013 [facility] [place] [facility] [address] [id number] [place] [address]- 4420 08 Apr, 2013 [facility] [place] [facility] [address] [facility] [id number] [place] [address]- 5707 Apr, [facility] [place] [facility] [address] [id number] [place] [address]- 2760 07 Apr, 2013 [facility] [place] [facility] [address] [id number], [place] [address]- 4980 Apr, [facility] [place] [facility] [address] [id number], [place] [address] 7583 Apr, [facility] [place] [facility] [address] [facility] [id number], [place] [address]- 8890 Mar, [facility] [place] [facility] [address] [facility] [id number], [place] [address]- 4387 Mar, [facility] [place] [facility] [address] [id number] [place] [address]- 2820 Mar, [facility] [place] [facility] [address] [id number] [place] [address]- 6536 Mar, [facility] [place] [facility] [address] [id number] [place] [address]- 3609 Mar, [facility] [place] [facility] [address] [id number] [place] [address]- 4430 Mar, [facility] [place] [facility] [address] [id number] [place] [address]- 7144 Mar, [facility] [place] [facility] [address] [id number] [place] [address]- 5126 Mar, [facility] [place] [facility] [address] [id number] [place] [address]- 4552 Mar, [facility] [place] [facility] [address] [id number] [place] [address]- 9920 Mar, [facility] [place] [facility] [address] [id number] [place] [address]- 6048 15 Mar, 2013 [facility] [place] [facility] [address] [id number] [place] [address]- 4450 Mar, [facility] [place] [facility] [address] [id number] [place] [address]- 5959 30 Jan, 2013 [facility] [place] [facility] [address] [id number] [place] [address]- 9964 25 Jan, 2013 [facility] [place] [facility] [address] [id number] [place] [address]- 4899 20 Jan, 2013 [facility] [place] [facility] [address] [id number] [place] [address]- 2543 10 Jan, 2013 [facility] [place] [facility] [address] [id number] [place] [address]- 2548 27 Dec, 2012 [facility] [place] [facility] [address] [id number] [place] [address] 1921 Dec, [facility] [place] [facility] [address] [id number] [place] [address]- 6647 Dec, [facility] [place] [facility] [address] [id number] [place] [address]- 7183 Dec, [facility] [place] [facility] [address] [id number] [place] [address]- 9307 Dec, [facility] [place] [facility] [address] [id number] [place] [address]- 6202 Dec, [facility] [place] [facility] [address] [id number] [place] [address]- 0348 Dec, [facility] [place] [facility] [address] [id number] [place] [address]- 4265 Dec, [facility] [place] [facility] [address] [id number] [place] [address]- 1599 Dec, [facility] [place] [facility] [address] [id number] [place] [address]- 0200 Nov, [facility] [place] [facility] [address] [id number] [place] [address]- 4579 Nov, [facility] [place] [facility] [address] [id number] [place] [address]- 5223 Nov, [facility] [place] [facility] [address] [id number] [place] [address]- 6368 Nov, [facility] [place] [facility] [address] [id number] [place] [address]- 9698 Nov, [facility] [place] [facility] [address] [id number] [place] [address]- 2147 Nov, [facility] [place] [facility] [address] [id number] [place] [address]- 6859 Nov, [facility] [place] [facility] [address] [id number] [place] [address]- 2119 Nov, [facility] [place] [facility] [address] [id number] [place] [address]- 0504 27 Oct, 2012 [facility] [address] [id number] [place] [address]- 8895 Oct, [facility] [address] [id number] [place] [address]- 3824 Oct, [facility] [address] [id number] [place] [address]- 3772 Oct, [facility] [address] [id number] [place] [address]- 8085 Oct, [facility] [address] [id number] [place] [address]- 9898 Oct, [facility] [address] [id number] [place] [address]- 2110 Oct, [facility] [place] [facility] [address] [id number] [place] [address]- 1466 Oct, [facility] [address] [id number] [place] [address]- 2316 19 Oct, 2012 [facility] [address] [id number] [place] [address]- 8255 18 Oct, 2012 [facility] [address] [id number] [place] [address]- 5858 17 Oct, 2012 [facility] [address] [id number] [place] [address]- 2659 14 Oct, 2012 [facility] [address] [id number] [place] [address]- 7455 07 Oct, 2012 [facility] [place] [facility] [address] [id number] [place] [address]- 3431 September, [facility] [place] [facility] [address] [id number] [place] [address]- 2426 September, [facility] [address] [id number] [place] [address]- 2048 September, [facility] [place] [facility] [address] [id number] [place] [address]- 1429 Aug, [facility] [address] [id number] [place] [address]- 4542 Aug, [facility] [address] [id number] [place] [address]- 6173 Aug, [facility] [place] [facility] [address] [id number] [place] [address]- 4752 Aug, [facility] [address] [id number] [place] [address]- 3593 Aug, [facility] [address] [id number] [place] [address]- 3974 Aug, [facility] [address] [id number] [place] [address]- 8252 Aug, [facility] [address] [id number] [place] [address]- 9881 Jul, [facility] [address] [id number] [place] [address]- 6424 Jul, [facility] [address] [id number] [place] [address]- 5328 Jul, [facility] [place] [facility] [address] [id number] [place] [address]- 7333 Jul, [facility] [place] [facility] [address] [id number] [place] [address]- 9406 Jul, [facility] [place] [facility] [address] [id number] [place] [address]- 1359 Jul, [facility] [place] [facility] [address] [id number] [place] [address]- 5133 Jul, [facility] [place] [facility] [address] [id number] [place] [address]- 9987 Jul, [facility] [place] [facility] [address] [id number] [place] [address]- 7932 20 Jul, 2012 [facility] [address] [id number] [place] [address]- 4046 Jul, [facility] [address] [id number] [place] [address]- 0626 Jul, [facility] [address] [id number] [place] [address]- 5306 Jul, [facility] [address] [id number] [place] [address] 2544 Jul, [facility] [address] [id number] [place] [address]- 5578 24 Jun, 2012 [facility] [address] [id number] [place] [address]- 1274 Jun, [facility] [address] [id number] [place] [address]- 6791 Jun, [facility] [address] [id number] [place] [address]- 5918 17 Jun, 2012 [facility] [address] [id number] [place] [address]- 9715 15 Jun, 2012 [facility] [address] [id number] [place] [address]- 7545 14 Jun, 2012 [facility] [address] [id number] [place] [address]- 6453 Jun, [facility] [address] [id number] [place] [address]- 9636 May, [facility] [address] [id number] [place] [address]- 9512 May, [facility] [address] [id number] [place] [address]- 3399 May, [facility] [address] [id number] [place] [address]- 5934 May, [facility] [place] [facility] [address] [id number] [place] [address]- 4455 May, [facility] [place] [facility] [address] [id number] [place] [address]- 7518 May, [facility] [place] [facility] [address] [id number] [place] [address]- 5627 May, [facility] [place] [facility] [address] [id number] [place] [address]- 5266 May, [facility] [place] [facility] [address] [id number] [place] [address]- 2545 May, [facility] [place] [facility] [address] [id number] [place] [address]- 2082 May, [facility] [place] [facility] [address] [id number] [place] [address]- 6063 Apr, [facility] [place] [facility] [address] [id number] [place] [address]- 3511 Apr, [facility] [place] [facility] [address] [id number] [place] [address]- 2656 Apr, [facility] [place] [facility] [address] [id number] [place] [address]- 9741 Apr, [facility] [place] [facility] [address] [id number] [place] [address]- 7566 Apr, [facility] [place] [facility] [address] [id number], [place] [address]- 1018 Apr, [facility] [place] [facility] [address] [id number] [place] [address]- 9143 Apr, [facility] [place] [facility] [address] [id number] [place] [address]- 4444 Apr, [facility] [place] [facility] [address] [id number] [place] [address]- 3873 Apr, [facility] [place] [facility] [address] [id number], [place] [address]- 3740 Apr, [facility] [place] [facility] [address] [id number] [place] [address]- 7322 Apr, [facility] [place] [facility] [address] [id number] [place] [address]- 9242 Apr, [facility] [place] [facility] [address] [id number] [place] [address]- 8461 Mar, [facility] [place] [facility] [address] [id number] [place] [address]- 9948 Mar, 2011 [facility] [place] [facility] [address] [id number] [place] [address]- 3656 Mar, [facility] [place] [facility] [address] [id number] [place] [address]- 6546 Mar, [facility] [place] [facility] [address] [id number], [place] [address]- 5184 Mar, [facility] [place] [facility] [address] [id number] [place] [address]- 7077 Mar, [facility] [place] [facility] [address] [id number], [place] [address]- 2232 Mar, [facility] [place] [facility] [address] [id number], [place] [address]- 3943 Mar, [facility] [place] [facility] [address] [id number], [place] [address]- 4523 Mar, [facility] [place] [facility] [address] [id number], [place] [address]- 9318 Mar, [facility] [place] [facility] [address] [id number], [place] [address]- 1709 Mar, [facility] [place] [facility] [address] [id number], [place] [address]- 2159 Mar, [facility] [place] [facility] [address] [facility] [id number], [place] [address]- 7376 Mar, [facility] [place] [facility] [address] [id number] [place] [address]- 4948 12 Mar, 2012 [facility] [place] [facility] [address] [id number] [place] [address]- 6094 03 Mar, 2012 [facility] [place] [facility] [address] [id number] [place] [address]- 9796 Mar, [facility] [place] [facility] [address] [id number] [place] [address]- 4686 25 Jan, 2012 [facility] [place] [facility] [address] [id number] [place] [address]- 6335 24 Jan, 2012 [facility] [place] [facility] [address] [id number] [place] [address]- 4854 22 Jan, 2012 [facility] [place] [facility] [address] [id number] [place] [address]- 5775 22 Jan, 2012 [facility] [place] [facility] [address] [id number] [place] [address]- 2233 21 Jan, 2012 [facility] [place] [facility] [address] [id number] [place] [address]- 8056 18 Jan, 2012 [facility] [place] [facility] [address] [id number] [place] [address]- 9452 14 Jan, 2012 [facility] [place] [facility] [address] [id number] [place] [address]- 7175 07 Jan, 2012 [facility] [place] [facility] [address] [id number] [place] [address]- 2328 15 Dec, 2011 [facility] [place] [facility] [address] [id number] [place] [address]- 3729 10 Dec, 2011 [facility] [place] [facility] [address] [id number] [place] [address]- 3604 09 Dec, 2011 [facility] [place] [facility] [address] [id number] [place] [address]- 0346 08 Dec, 2011 [facility] [place] [facility] [address] [id number] [place] [address]- 7320 Dec, [facility] [place] [facility] [address] [id number] [place] [address]- 1757 Dec, [facility] [place] [facility] [address] [id number] [place] [address]- 4918 Dec, [facility] [place] [facility] [address] [id number] [place] [address]- 9367 Nov, [facility] [place] [facility] [address] [id number] [place] [address]- 9349 Oct, [facility] [place] [facility] [address] [id number] [place] [address]- 5823 Aug, [facility] [place] [facility] [address] [id number] [place] [address]- 4425 Jul, [facility] [place] [facility] [address] [id number] [place] [address]- 8517 Jul, [facility] [place] [facility] [address] [id number] [place] [address]- 5642 16 Jul, 2011 [facility] [place] [facility] [address] [id number] [place] [address]- 4629 14 Jul, 2011 [facility] [place] [facility] [address] [id number] [place] [address]- 7247 Jul, [facility] [place] [facility] [address] [id number] [place] [address]- 6154 Jul, [facility] [place] [facility] [address] [id number] [place] [address]- 7217 Jul, [facility] [place] [facility] [address] [id number] [place] [address]- 4708 15 Jul, 2011 [facility] [place] [facility] [address] [id number] [place] [address]- 4655 13 Jul, 2011 [facility] [place] [facility] [address] [id number] [place] [address]- 7288 Jul, [facility] [place] [facility] [address] [id number] [place] [address]- 9410 02 Jul, 2011 [facility] [address] [id number] [place] [address]- 2834 Jun, [facility] [address] [id number] [place] [address]- 6049 Jun, [facility] [address] [id number] [place] [address]- 6062 Jun, [facility] [address] [id number] [place] [address]- 2438 Jun, [facility] [address] [id number] [place] [address]- 4336 Jun, [facility] [address] [id number] [place] [address]- 4731 Jun, [facility] [address] [id number] [place] [address]- 7379 Jun, [facility] [address] [id number] [place] [address]- 1645 May, [facility] [address] [id number] [place] [address]- 5177 May, [facility] [address] [id number] [place] [address]- 8531 May, [facility] [address] [id number] [place] [address]- 4812 14 May, 2011 [facility] [address] [id number] [place] [address]- 0474 14 May, 2011 [facility] [address] [id number] [place] [address]- 3125 May, [facility] [address] [id number] [place] [address]- 5577 May, [facility] [address] [id number] [place] [address]- 3524 May, [facility] [address] [id number] [address]- 2706 May, [facility] [id number], [place] [address]- 5266 May, [facility] [address] [facility] [id number], [place] [address]- 2928 Apr, [facility] [address] [facility] [id number], [place] [address]- 5576 Apr, [facility] [id number], [place] [address]- 5057 Apr, [facility] [address] [facility] [id number], [place] [address]- 6476 Apr, [facility] [id number], [place] [address]- 8972 Mar, [facility] [id number], [place] [address]- 5346 Mar, [facility] [id number], [place] [address]- 2173 Mar, [facility] [address] [id number], [place] [address]- 1842 Mar, IMMUNIZATIONS No Known Immunizations SOCIAL HISTORY Never Assessed REASON FOR VISIT Lab results PLAN OF CARE VITAL SIGNS MEDICATIONS Medication Instructions Dosage Frequency Start Date End Date Duration Status Vitamin D (Cholecalciferol) 1000 UNIT Orally Once a day 3 tablet 24h September 30 day(s) Active RESULTS No Results PROCEDURES No Known [...]
[2018-01-13] MEDS ORDERED: NS IV 1000 ML 1,000 ML IV SCH (22:15)
[2018-01-13] MEDS ORDERED: PROMETHAZINE INJ 25 MG/ML (PHENERGAN) AMP IVP ONE (22:15)
[2018-01-13] MEDS ORDERED: fentaNYL INJECTION 100 MCG/2 ML AMP IVP ONE (22:15)
[2018-01-13 22:17] LABS: BILIRUBIN,URINE NEGATIVE (NEGATIVE); CLARITY,URINE CLEAR; COLOR,URINE YELLOW; GLUCOSE, URINE (UA) NEGATIVE (NEGATIVE); KETONES,URINE NEGATIVE (NEGATIVE); LEUKOCYTE ESTERASE ,URINE NEGATIVE (NEGATIVE); NITRITE,URINE NEGATIVE (NEGATIVE); PH,URINE 8 (5-9); PROTEIN,URINE 1+ (NEGATIVE); UROBILINOGEN,URINE NORMAL (NORMAL)
--- NOTE | 2018-01-13 22:18 | ED Abdominal Pain ---
General Chief Complaint: Abdominal/GI Problems Stated Complaint: NAUSEA;HIGH BP Nursing Triage Note: States that she had renal scope this am. She stated that they gave her pepcid and she started having dry heaves. Has cont all day and she is laving left upper quad pain Sepsis Screen: No Definite Risk Source of Information: Patient Exam Limitations: No Limitations History of Present Illness Date Seen by Provider: Jan 13, 2018 Time Seen by Provider: 22:05 Initial Comments Patient is a 47-year-old female who presents to the emergency room with complaints of nausea and vomiting for most of the day and left flank pain. Patient reports that she had a renal scope done this morning by Dr. Howell and had a kidney stone removed and blasted. She is past numerous small stones this evening. She denies having anything at home for pain control or nausea. She states that her ribs are sore from vomiting. Patient is very anxious on arrival to the emergency room. Timing/Duration: Getting Worse Severity/Quality: Mild, Other (ache) Location: LUQ, Flank Radiation: No Radiation Associated Symptoms: Nausea/Vomiting Allergies and Home Medications Allergies Coded Allergies: Sulfa (Sulfonamide Antibiotics) (Unverified Allergy, Unknown, 12/28/17) famotidine (Unverified Allergy, Unknown, dry heaves, 01/13/18) hydrocodone (Verified Allergy, Unknown, itching. Pt has received hydromorphone w/o issue, 12/29/17) NOTE: Patient has taken Percocet and Lortab as home meds as recent as 12/25/17 ketorolac (Unverified Allergy, Unknown, 01/13/18) ketorolac tromethamine (Verified Allergy, Unknown, 12/28/17) levofloxacin (Unverified Allergy, Unknown, 12/28/17) GIVES HER THRUSH nitrofurantoin (Unverified Allergy, Unknown, 12/28/17) ondansetron (Verified Allergy, Unknown, 12/28/17) tramadol (Unverified Allergy, Unknown, 12/28/17) Uncoded Allergies: SULFA (Allergy, Unknown, 01/13/18) Home Medications Alprazolam 1 Mg Tablet, 2 MG PO HS, (Reported) TAKES 2 (1MG) TABLETS Amlodipine Besylate 2.5 Mg Tablet, 2.5 MG PO DAILY, (Reported) Atorvastatin Calcium 10 Mg Tablet, 10 MG PO HS, (Reported) Gabapentin 800 Mg Tablet, 1,600 MG PO BID, (Reported) TAKES 2 (800MG) TABLETS Hydrocodone/Acetaminophen 1 Each Tablet, 1-2 TAB PO Q4H PRN for PAIN-MODERATE, ( Reported) Metoprolol Tartrate 50 Mg Tablet, 50 MG PO HS, (Reported) Quetiapine Fumarate 300 Mg Tablet, 300 MG PO HS, (Reported) Trazodone HCl 300 Mg Tablet, 300 MG PO HS, (Reported) Patient Home Medication List Home Medication List Reviewed: Yes Review of Systems Constitutional: see HPI; No chills, No fever Gastrointestinal: See HPI, Abdominal Pain (generalized abdominal pain), Nausea , Vomiting All Other Systems Reviewed Negative Unless Noted: Yes Past Eftvwuk-Gacxlf-Hdwjvq Hx Past Med/Social Hx: Reviewed Nursing Past Med/Soc Hx Patient Social History Alcohol Use: Denies Use Recreational Drug Use: No (UNKNOWN) Smoking Status: Never a Smoker 2nd Hand Smoke Exposure: No Recent Foreign Travel: No Contact w/Someone Who Travel: No Recent Infectious Disease Expo: No Recent Hopitalizations: Yes (RENAL SCOPE THIS AM) Physical Abuse: No Sexual Abuse: No Mistreated: No Fear: No Immunizations Up To Date Tetanus Booster (TDap): Unknown PED Vaccines UTD: No Date of Pneumonia Vaccine: Mar 01, 2013 Date of Influenza Vaccine: Mar 16, 2017 Seasonal Allergies Seasonal Allergies: Yes (MILD) Past Medical History Surgeries: Yes (breast reduction, several cysto's with UD, lap santa) Abdominal, Appendectomy, Bladder Surgery, Breast, Gallbladder, Hysterectomy, Oophorectomy, Renal, Tonsillectomy, Tubal Ligation Respiratory: Yes (MILD ASTHMA RELATED TO SEASONAL ALLERGIES) Asthma, Pneumonia, Chronic Bronchitis, Sleep Apnea Currently Using CPAP: Yes (DOESNT USE ALL THE TIME) Currently Using BIPAP: No Cardiac: Yes (TACHYCARDIA) High Cholesterol, Hypertension, Irregular Heartbeat Neurological: Yes (LAST SEISURE 07/2017) Headaches /Migraines, Seizure Disorder Reproductive Disorders: No 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 Problems, 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 History: Hysterectomy, Menopausal Sexually Transmitted Disease: No HIV/AIDS: No Genitourinary: Yes (INCONTINENCE) Bladder Infection, Kidney Stones, Renal Failure, UTI-Chronic Gastrointestinal: Yes (S/P HIATAL HERNIA REPAIR) Gastroesophageal Reflux, Pancreatitis, Chronic Diarrhea, Hiatal Hernia Musculoskeletal: Yes Fibromyalgia, Chronic Back Pain Endocrine: No HEENT: No Loss of Vision: Bilateral Hearing Impairment: Denies Cancer: Yes Vaginal Did You Recieve Any Treatments: Yes What Type of Treatment Did You: Surgical Intervention Psychosocial: Yes (EXTENSIVE PSYCH ISSUES) Anxiety, Depression Nursing Suicide Risk Score: 0 Integumentary: No Blood Disorders: No Adverse Reaction/Blood Tranf: No (HAS HAD BLOOD WITH NO REACTION) Family Medical History Reviewed Nursing Family Hx Dementia 19 FATHER Family history: Cardiovascular disease 19 FATHER Family history: Diabetes mellitus G8 SISTER Family history: Hypertension 19 FATHER 19 MOTHER History of - respiratory disease 19 MOTHER Seizure disorder G8 SISTER No Family History of: Abdominal aortic aneurysm Ash's disease Alcoholism Aphasia Cancer Cancer of colon Cataract Chest pain Congenital heart disease Congestive heart failure Cystic fibrosis Family history: Osteoporosis Family history: Thyroid disorder Headache Hearing loss Heart disease Hereditary disease History of - anemia History of - disorder History of drug abuse Human immunodeficiency virus (HIV) seropositivity Hypercholesterolemia Infertile Kidney disease Malignant neoplasm of lung Myocardial infarction Parkinson's disease Prostate cancer Psychotic disorder Stroke Tuberculosis Visual impairment Heart Disease Physical Exam Vital Signs Vital Signs - First Documented 01/13/18 21:44 Temp 97.8 Pulse 83 Resp 16 B/P (MAP) 189/135 (153) Pulse Ox 98 Capillary Refill : Less Than 3 Seconds Height/Weight/BMI Height: 5'1.00" Weight: 165lbs. 0.0oz. [id number]; 31.2 BMI Method:Stated General Appearance: WD/WN, no apparent distress Respiratory: chest non-tender, lungs clear, normal breath sounds, no respiratory distress, no accessory muscle use Cardiovascular: regular rate, rhythm, no edema, no gallop, no JVD, no murmur Gastrointestinal: normal bowel sounds, non tender, soft, no organomegaly, no pulsatile mass Neurologic/Psychiatric: alert, normal mood/affect, oriented x 3 Skin: normal color, warm/dry Progress/Results/Core Measures Results/Orders Lab Results Laboratory Tests Test 01/13/18 21:59 Range/Units White Blood Count 11.4 H 4.3-11.0 10^3/uL Red Blood Count 4.99 4.35-5.85 10^6/uL Hemoglobin 14.2 11.5-16.0 G/DL Hematocrit 41 35-52 % Mean Corpuscular Volume 82 80-99 FL Mean Corpuscular Hemoglobin 29 25-34 PG Mean Corpuscular Hemoglobin Concent 35 32-36 G/DL Red Cell Distribution Width 12.9 10.0-14.5 % Platelet Count 248 130-400 10^3/uL Mean Platelet Volume 11.3 H 7.4-10.4 FL Neutrophils (%) (Auto) 84 H 42-75 % Lymphocytes (%) (Auto) 11 L 12-44 % Monocytes (%) (Auto) 5 0-12 % Eosinophils (%) (Auto) 0 0-10 % Basophils (%) (Auto) 0 0-10 % Neutrophils # (Auto) 9.6 H 1.8-7.8 X 10^3 Lymphocytes # (Auto) 1.3 1.0-4.0 X 10^3 Monocytes # (Auto) 0.5 0.0-1.0 X 10^3 Eosinophils # (Auto) 0.0 0.0-0.3 10^3/uL Basophils # (Auto) 0.0 0.0-0.1 10^3/uL Urine Color YELLOW Urine Clarity CLEAR Urine pH 8 5-9 Urine Specific [place] 1.010 L 1.016-1.022 Urine Protein 1+ H NEGATIVE Urine Glucose (UA) NEGATIVE NEGATIVE Urine Ketones NEGATIVE NEGATIVE Urine Nitrite NEGATIVE NEGATIVE Urine Bilirubin NEGATIVE NEGATIVE Urine Urobilinogen NORMAL NORMAL MG/DL Urine Leukocyte Esterase NEGATIVE NEGATIVE Urine RBC (Auto) 5+ H NEGATIVE Urine RBC >100 H /HPF Urine WBC 0-2 /HPF Urine Crystals NONE /LPF Urine Bacteria NONE /HPF Urine Casts NONE /LPF Urine Mucus NEGATIVE /LPF Urine Culture Indicated NO Sodium Level 136 135-145 MMOL/L Potassium Level 4.6 3.6-5.0 MMOL/L Chloride Level 104 98-107 MMOL/L Carbon Dioxide Level 18 L 21-32 MMOL/L Anion Gap 14 5-14 MMOL/L Blood Urea Nitrogen 13 7-18 MG/DL Creatinine 1.22 0.60-1.30 MG/DL Estimat Glomerular Filtration Rate 47 BUN/Creatinine Ratio 11 Glucose Level 134 H 70-105 MG/DL Calcium Level 10.1 8.5-10.1 MG/DL Corrected Calcium 9.7 8.5-10.1 MG/DL Total Bilirubin 0.5 0.1-1.0 MG/DL Aspartate Amino Transf (AST/SGOT) 28 5-34 U/L Alanine Aminotransferase (ALT/SGPT) 32 0-55 U/L Alkaline Phosphatase 64 40-136 U/L Total Protein 7.7 6.4-8.2 GM/DL Albumin 4.5 3.2-4.5 GM/DL Amylase Level 84 25-125 U/L Lipase 13 8-78 U/L My Orders Orders - ILIANA RICO Comprehensive Metabolic Panel (01/13/18 22:06) Lipase (01/13/18 22:06) Amylase (01/13/18 22:06) Ua Culture If Indicated (01/13/18 22:06) Cbc With Automated Diff (01/13/18 22:06) Promethazine Injection (Phenergan Injec (01/13/18 22:15) Ns Iv 1000 Ml (Sodium Chloride 0.9%) (01/13/18 22:15) Fentanyl Injection (Sublimaze Injection (01/13/18 22:15) Metoprolol Tartrate Injection (Lopressor (01/13/18 22:45) Lorazepam Injection (Ativan Injection) (01/13/18 23:00) Medications Given in ED Vital Signs/I&O 01/13/18 21:44 Temp 97.8 Pulse 83 Resp 16 B/P (MAP) 189/135 (153) Pulse Ox 98 Blood Pressure Mean: 153 Progress Progress Note : Time: 22:53 Progress Note I spoke with Dr. Lima at this time. She agrees with plans for admission for intractable nausea and vomiting. The patient will have a consult with Dr. Howell in the morning. The patient will have Phenergan and fentanyl ordered for her upstairs. With the patient's numerous allergies to medications cautious to give her Reglan. Patient agrees with plan of care and plan of admission. Departure Communication (Admissions) Time/Spoke to Admitting Phy: 22:40 Clarence Impression Primary Impression: Intractable nausea and vomiting Disposition: ADMITTED INPATIENT Condition: Stable/Unchanged Admissions Decision to Admit Reason: Admit from ER (General) Decision to Admit/Date: Jan 13, 2018 Time/Decision to Admit Time: 22:53 Departure-Patient Inst. Referrals: SABIHA MAST MD (PCP/Family) Primary Care Physician ILIANA RICO Jan 13, 2018 22:18
[2018-01-13 22:19] LABS: BASOPHILS % (AUTO) 0 % (0-10); EOSINOPHILS % (AUTO) 0 % (0-10); HEMATOCRIT 41 % (35-52); HEMOGLOBIN 14.2 G/DL (11.5-16.0); LYMPHOCYTES # (AUTO) 1.3 X 10^3 (1.0-4.0); LYMPHOCYTES % (AUTO) 11 % (12-44); MEAN CORPUSCULAR HEMOGLOBIN 29 PG (25-34); MEAN CORPUSCULAR HGB CONC 35 G/DL (32-36); MEAN CORPUSCULAR VOLUME 82 FL (80-99); MEAN PLATELET VOLUME 11.3 FL (7.4-10.4); MONOCYTES # (AUTO) 0.5 X 10^3 (0.0-1.0); MONOCYTES % (AUTO) 5 % (0-12); NEUTROPHILS # (AUTO) 9.6 X 10^3 (1.8-7.8); NEUTROPHILS % (AUTO) 84 % (42-75); PLATELET COUNT 248 10^3/uL (130-400); RED BLOOD COUNT 4.99 10^6/uL (4.35-5.85); RED CELL DISTRIBUTION WIDTH 12.9 % (10.0-14.5); WHITE BLOOD COUNT 11.4 10^3/uL (4.3-11.0)
[2018-01-13 22:24] LABS: RBC,URINE >100 /HPF; WBC,URINE 0-2 /HPF
[2018-01-13 22:35] LABS: ALBUMIN 4.5 GM/DL (3.2-4.5); BILIRUBIN,TOTAL 0.5 MG/DL (0.1-1.0); CALCIUM 10.1 MG/DL (8.5-10.1); CREATININE SERUM 1.22 MG/DL (0.60-1.30); POTASSIUM 4.6 MMOL/L (3.6-5.0); TOTAL PROTEIN 7.7 GM/DL (6.4-8.2)
--- OUTSIDE RECORDS SUMMARY | 2018-01-13 22:38 | XMS REPORT | Continuity of Care Document ---
Author Author [facility] Address Unknown Phone Unavailable Allergies Active Description Code Type Severity Reaction Onset Reported/Identified Relationship to Patient Clinical Status Yes codeine Drug Allergy N/A N/A 03/17/2011 Yes Levaquin Drug Allergy N/A N/A 03/17/2011 Yes Macrobid Drug Allergy N/A N/A 03/17/2011 Yes Toradol Drug Allergy N/A N/A 03/17/2011 Yes codeine Drug Allergy 03/17/2011 Yes Levaquin Drug Allergy 03/17/2011 Yes Macrobid Drug Allergy 03/17/2011 Yes sulfa drug Drug Allergy 03/17/2011 Yes Toradol Drug Allergy 03/17/2011 Yes tramadol Drug Allergy N/A N/A 02/06/2012 Yes tramadol Drug Allergy 02/06/2012 Yes Ambien 10 mg tablet Drug Allergy N/A N/A 08/06/2012 Yes Ambien 10 mg tablet Drug Allergy 08/06/2012 Yes Nitrofurantoin Macrocrystal [id number] Drug Allergy Unknown N/A 2013 Yes tramadol [id number] Drug Allergy Unknown HAS TAKEN BEFOR 01/10/2014 Yes cephalexin [id number] Drug Allergy Mild NAUSEA 11/07/2014 Yes hydrocodone [id number] Drug Allergy Unknown itching 12/28/2017 Yes ketorolac tromethamine [id number] Drug Allergy Unknown N/A 12/28/2017 Yes levofloxacin [id number] Drug Allergy Unknown N/A 12/28/2017 Yes nitrofurantoin [id number] Drug Allergy Unknown N/A 12/28/2017 Yes ondansetron [id number] Drug Allergy Unknown N/A 12/28/2017 Yes Sulfa (Sulfonamide Antibiotics) [id number] Drug Allergy Unknown N/A 2017 Yes tramadol [id number] Drug Allergy Unknown N/A 12/28/2017 Yes hydrocodone [id number] Drug Allergy Unknown itching. Pt has 12/29/2017 Medications There is no data. 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, 01/12/2006 Ot 721.3 01/13/2006 Ot 724.2 01/13/2006 Ot V57.1 04/29/2009 Ot 592.1 04/29/2009 Ot 789.09 08/07/2009 Ot 592.0 09/11/2009 Ot 599.0 05/02/2010 Ot 041.4 05/02/2010 Ot 112.0 05/02/2010 Ot 272.4 05/02/2010 Ot 300.4 05/02/2010 Ot 333.94 05/02/2010 Ot 389.9 05/02/2010 Ot 592.0 05/02/2010 Ot 599.0 05/02/2010 Ot 729.1 05/02/2010 Ot 784.59 07/30/2010 Ot 595.9 07/30/2010 Ot 598.9 07/30/2010 Ot 618.01 07/30/2010 Ot 618.04 07/30/2010 Ot 788.31 08/18/2010 Ot 346.90 08/18/2010 Ot 784.0 08/21/2010 Ot 564.00 08/21/2010 Ot 599.0 08/21/2010 Ot 789.01 08/26/2010 Ot 530.81 08/26/2010 Ot 564.00 09/07/2010 Ot 112.0 THRUSH 09/07/2010 Ot 300.00 ANXIETY STATE NOS 09/07/2010 Ot 346.90 MIGRAINE UNSPECIFIED W/O INTRACT MGRN W/ 09/07/2010 Ot 368.2 DIPLOPIA 09/07/2010 Ot 466.0 ACUTE BRONCHITIS 09/07/2010 Ot 729.1 MYALGIA AND MYOSITIS NOS 09/07/2010 Ot V58.69 OTH MED,LT, CURRENT USE 09/10/2010 Ot 786.50 09/10/2010 Ot 786.52 09/19/2010 311 MO DEPRESS NOS 09/19/2010 REYNALDO VIEIRA APRN 311 MO DEPRESS NOS 09/19/2010 311 MO DEPRESS NOS 09/19/2010 KIKA ARGUETA DO 311 MO DEPRESS NOS 09/19/2010 311 MO DEPRESS NOS 09/19/2010 [facility] ARASH R 311 MO DEPRESS NOS 09/19/2010 311 MO DEPRESS NOS 09/19/2010 [facility], ARASH R 311 MO DEPRESS NOS 09/19/2010 MARLENE CABRERA APRN 311 MO DEPRESS NOS 09/19/2010 311 MO DEPRESS NOS 09/19/2010 311 MO DEPRESS NOS 09/19/2010 311 MO DEPRESS NOS 09/19/2010 311 MO DEPRESS NOS 09/19/2010 311 MO DEPRESS NOS 09/19/2010 311 MO DEPRESS NOS 09/19/2010 311 MO DEPRESS NOS 09/19/2010 311 MO DEPRESS NOS 09/19/2010 311 MO DEPRESS NOS 09/19/2010 311 MO DEPRESS NOS 09/19/2010 311 MO DEPRESS NOS 09/19/2010 311 MO DEPRESS NOS 09/19/2010 311 MO DEPRESS NOS 09/19/2010 REYNALDO VIEIRA APRN 311 MO DEPRESS NOS 09/19/2010 REYNALDO VIEIRA APRN 311 MO DEPRESS NOS 09/19/2010 REYNALDO VIEIRA APRN 311 MO DEPRESS NOS 09/19/2010 SABIHA MAST MD 311 MO DEPRESS NOS 09/19/2010 KIKA ARGUETA DO 311 MO DEPRESS NOS 09/19/2010 MARLENE CABRERA APRN 311 MO DEPRESS NOS 09/19/2010 MARLENE CABRERA APRN 311 MO DEPRESS NOS 09/19/2010 [facility] ARASH R 311 MO DEPRESS NOS 09/19/2010 BRODY ARAYA MD 311 MO DEPRESS NOS 09/19/2010 REYNALDO VIEIRA APRN 311 MO DEPRESS NOS 09/19/2010 [facility], ARASH R 311 MO DEPRESS NOS 09/19/2010 REYNALDO VIEIRA APRN 311 MO DEPRESS NOS 09/19/2010 ARGUETA BRO DE LA TORREA K 311 MO DEPRESS NOS 09/19/2010 [facility], ARASH R 311 MO DEPRESS NOS 09/19/2010 MARLENE CABRERA APRN 311 MO DEPRESS NOS 09/19/2010 [facility], ARASH R 311 MO DEPRESS NOS 09/19/2010 ITZ JUNIOR APRN 311 MO DEPRESS NOS 09/19/2010 ITZ JUNIOR APRN 311 MO DEPRESS NOS 09/19/2010 BRODY ARAYA MD 311 MO DEPRESS NOS 09/19/2010 MARSHAL MD, BRODY N 311 MO DEPRESS NOS 09/19/2010 SANDI LASSITER, ITZ J 311 MO DEPRESS NOS 09/19/2010 BENJI ACOSTA DDS 311 MO DEPRESS NOS 09/19/2010 KARLA CARDOZO, BENJI 311 MO DEPRESS NOS 09/19/2010 KEZIA SAUCEDO, SABIHA 311 MO DEPRESS NOS 09/19/2010 ELLIE DE LA TORRE, KIKA K 311 MO DEPRESS NOS 09/19/2010 SANDI LASSITER, ITZ J 311 MO DEPRESS NOS 09/19/2010 SANDI LASSITER, ITZ J 311 MO DEPRESS NOS 09/19/2010 SANDI LSASITER, ITZ J 311 MO DEPRESS NOS 09/19/2010 MARTY DE LA TORRE MASSIEL Jailyn 311 MO DEPRESS NOS 09/19/2010 SANDI LASSITER, ITZ J 311 MO DEPRESS NOS 09/19/2010 ARGUETA DO, KIKA K 311 MO DEPRESS NOS 10/02/2010 Ot 327.24 10/02/2010 Ot 401.9 10/02/2010 Ot 786.09 10/05/2010 Ot 466.0 10/05/2010 Ot 786.05 10/11/2010 Ot 341.9 10/11/2010 Ot 401.9 10/11/2010 Ot 780.2 10/26/2010 Ot 599.0 10/26/2010 Ot 780.2 11/21/2010 Ot 466.0 11/21/2010 Ot 786.2 12/13/2010 Ot 490 12/13/2010 Ot 599.0 12/13/2010 Ot 786.2 12/28/2010 Ot 780.2 03/17/2011 250.00 DIABETES II CONTROLLED (UNCOMPLICATED) 03/17/2011 272.4 HYPERLIPIDEMIA 03/17/2011 300.00 ANXIETY UNSPEC 03/17/2011 530.81 GERD 03/17/2011 729.1 FIBROMYALGIA 03/17/2011 REYNALDO VIEIRA APRN 250.00 DIABETES II CONTROLLED (UNCOMPLICATED) 03/17/2011 REYNALDO VIEIRA APRN 272.4 HYPERLIPIDEMIA 03/17/2011 REYNALDO VIEIRA APRN 300.00 ANXIETY UNSPEC 03/17/2011 REYNALDO VIEIRA APRN 530.81 GERD 03/17/2011 REYNALDO VIEIRA APRN 729.1 FIBROMYALGIA 03/17/2011 250.00 DIABETES II CONTROLLED (UNCOMPLICATED) 03/17/2011 272.4 HYPERLIPIDEMIA 03/17/2011 300.00 ANXIETY UNSPEC 03/17/2011 530.81 GERD 03/17/2011 729.1 FIBROMYALGIA 03/17/2011 KIKA ARGUETA DO K 250.00 DIABETES II CONTROLLED (UNCOMPLICATED) 03/17/2011 KIKA ARGUETA DO K 272.4 HYPERLIPIDEMIA 03/17/2011 KIKA ARGUETA DO K 300.00 ANXIETY UNSPEC 03/17/2011 KIKA ARGUETA DO K 530.81 GERD 03/17/2011 KIKA ARGUETA DO 729.1 FIBROMYALGIA 03/17/2011 250.00 DIABETES II CONTROLLED (UNCOMPLICATED) 03/17/2011 272.4 HYPERLIPIDEMIA 03/17/2011 300.00 ANXIETY UNSPEC 03/17/2011 530.81 GERD 03/17/2011 729.1 FIBROMYALGIA 03/17/2011 [facility], ARASH R 250.00 DIABETES II CONTROLLED (UNCOMPLICATED) 03/17/2011 [facility] 272.4 HYPERLIPIDEMIA 03/17/2011 [facility], ARASH R 300.00 ANXIETY UNSPEC 03/17/2011 [facility], ARASH R 530.81 GERD 03/17/2011 [facility], ARASH R 729.1 FIBROMYALGIA 03/17/2011 250.00 DIABETES II CONTROLLED (UNCOMPLICATED) 03/17/2011 272.4 HYPERLIPIDEMIA 03/17/2011 300.00 ANXIETY UNSPEC 03/17/2011 530.81 GERD 03/17/2011 729.1 FIBROMYALGIA 03/17/2011 [facility], ARASH R 250.00 DIABETES II CONTROLLED (UNCOMPLICATED) 03/17/2011 [facility], ARASH R 272.4 HYPERLIPIDEMIA 03/17/2011 [facility], ARASH R 300.00 ANXIETY UNSPEC 03/17/2011 [facility], ARASH R 530.81 GERD 03/17/2011 [facility], ARASH R 729.1 FIBROMYALGIA 03/17/2011 MARLENE CABRERA APRN 250.00 DIABETES II CONTROLLED (UNCOMPLICATED) 03/17/2011 MARLENE CABRERA APRN 272.4 HYPERLIPIDEMIA 03/17/2011 MARLENE CABRERA APRN 300.00 ANXIETY UNSPEC 03/17/2011 MARLENE CABRERA APRN 530.81 GERD 03/17/2011 MARLENE CABRERA APRN 729.1 FIBROMYALGIA 03/17/2011 250.00 DIABETES II CONTROLLED (UNCOMPLICATED) 03/17/2011 272.4 HYPERLIPIDEMIA 03/17/2011 300.00 ANXIETY UNSPEC 03/17/2011 530.81 GERD 03/17/2011 729.1 FIBROMYALGIA 03/17/2011 250.00 DIABETES II CONTROLLED (UNCOMPLICATED) 03/17/2011 272.4 HYPERLIPIDEMIA 03/17/2011 300.00 ANXIETY UNSPEC 03/17/2011 530.81 GERD 03/17/2011 729.1 FIBROMYALGIA 03/17/2011 250.00 DIABETES II CONTROLLED (UNCOMPLICATED) 03/17/2011 272.4 HYPERLIPIDEMIA 03/17/2011 300.00 ANXIETY UNSPEC 03/17/2011 530.81 GERD 03/17/2011 729.1 FIBROMYALGIA 03/17/2011 250.00 DIABETES II CONTROLLED (UNCOMPLICATED) 03/17/2011 272.4 HYPERLIPIDEMIA 03/17/2011 300.00 ANXIETY UNSPEC 03/17/2011 530.81 GERD 03/17/2011 729.1 FIBROMYALGIA 03/17/2011 250.00 DIABETES II CONTROLLED (UNCOMPLICATED) 03/17/2011 272.4 HYPERLIPIDEMIA 03/17/2011 300.00 ANXIETY UNSPEC 03/17/2011 530.81 GERD 03/17/2011 729.1 FIBROMYALGIA 03/17/2011 250.00 DIABETES II CONTROLLED (UNCOMPLICATED) 03/17/2011 272.4 HYPERLIPIDEMIA 03/17/2011 300.00 ANXIETY UNSPEC 03/17/2011 530.81 GERD 03/17/2011 729.1 FIBROMYALGIA 03/17/2011 250.00 DIABETES II CONTROLLED (UNCOMPLICATED) 03/17/2011 272.4 HYPERLIPIDEMIA 03/17/2011 300.00 ANXIETY UNSPEC 03/17/2011 530.81 GERD 03/17/2011 729.1 FIBROMYALGIA 03/17/2011 250.00 DIABETES II CONTROLLED (UNCOMPLICATED) 03/17/2011 272.4 HYPERLIPIDEMIA 03/17/2011 300.00 ANXIETY UNSPEC 03/17/2011 530.81 GERD 03/17/2011 729.1 FIBROMYALGIA 03/17/2011 250.00 DIABETES II CONTROLLED (UNCOMPLICATED) 03/17/2011 272.4 HYPERLIPIDEMIA 03/17/2011 300.00 ANXIETY UNSPEC 03/17/2011 530.81 GERD 03/17/2011 729.1 FIBROMYALGIA 03/17/2011 250.00 DIABETES II CONTROLLED (UNCOMPLICATED) 03/17/2011 272.4 HYPERLIPIDEMIA 03/17/2011 300.00 ANXIETY UNSPEC 03/17/2011 530.81 GERD 03/17/2011 729.1 FIBROMYALGIA 03/17/2011 250.00 DIABETES II CONTROLLED (UNCOMPLICATED) 03/17/2011 272.4 HYPERLIPIDEMIA 03/17/2011 300.00 ANXIETY UNSPEC 03/17/2011 530.81 GERD 03/17/2011 729.1 FIBROMYALGIA 03/17/2011 250.00 DIABETES II CONTROLLED (UNCOMPLICATED) 03/17/2011 272.4 HYPERLIPIDEMIA 03/17/2011 300.00 ANXIETY UNSPEC 03/17/2011 530.81 GERD 03/17/2011 729.1 FIBROMYALGIA 03/17/2011 250.00 DIABETES II CONTROLLED (UNCOMPLICATED) 03/17/2011 272.4 HYPERLIPIDEMIA 03/17/2011 300.00 ANXIETY UNSPEC 03/17/2011 530.81 GERD 03/17/2011 729.1 FIBROMYALGIA 03/17/2011 REYNALDO VIEIRA APRN 250.00 DIABETES II CONTROLLED (UNCOMPLICATED) 03/17/2011 REYNALDO VIEIRA APRN 272.4 HYPERLIPIDEMIA 03/17/2011 REYNALDO VIEIRA APRN 300.00 ANXIETY UNSPEC 03/17/2011 REYNALDO VIEIRA APRN 530.81 GERD 03/17/2011 REYNALDO VIEIRA APRN 729.1 FIBROMYALGIA 03/17/2011 REYNALDO VIEIRA APRN 250.00 DIABETES II CONTROLLED (UNCOMPLICATED) 03/17/2011 REYNALDO VIEIRA APRN 272.4 HYPERLIPIDEMIA 03/17/2011 REYNALDO VIEIRA APRN 300.00 ANXIETY UNSPEC 03/17/2011 REYNALDO VIEIRA APRN 530.81 GERD 03/17/2011 REYNALDO VIEIRA APRN 729.1 FIBROMYALGIA 03/17/2011 REYNALDO IVEIRA APRN 250.00 DIABETES II CONTROLLED (UNCOMPLICATED) 03/17/2011 REYNALDO VIEIRA APRN 272.4 HYPERLIPIDEMIA 03/17/2011 REYNALDO VIEIRA APRN 300.00 ANXIETY UNSPEC 03/17/2011 REYNALDO VIEIRA APRN 530.81 GERD 03/17/2011 REYNALDO VIEIRA APRN 729.1 FIBROMYALGIA 03/17/2011 SABIHA MAST MD 250.00 DIABETES II CONTROLLED (UNCOMPLICATED) 03/17/2011 SABIHA MAST MD 272.4 HYPERLIPIDEMIA 03/17/2011 SABIHA MAST MD 300.00 ANXIETY UNSPEC 03/17/2011 SABIHA MAST MD 530.81 GERD 03/17/2011 SABIHA MAST MD 729.1 FIBROMYALGIA 03/17/2011 ARGUETA DO, KIKA K 250.00 DIABETES II CONTROLLED (UNCOMPLICATED) 03/17/2011 KIKA ARGUETA DO K 272.4 HYPERLIPIDEMIA 03/17/2011 KIKA ARGUETA DO K 300.00 ANXIETY UNSPEC 03/17/2011 ELLIE DE LA TORRE, KIKA K 530.81 GERD 03/17/2011 KIKA ARGUETA DO K 729.1 FIBROMYALGIA 03/17/2011 MARLENE CABRERA APRN 250.00 DIABETES II CONTROLLED (UNCOMPLICATED) 03/17/2011 MARLENE CABRERA APRN 272.4 HYPERLIPIDEMIA 03/17/2011 MARLENE CABRERA APRN 300.00 ANXIETY UNSPEC 03/17/2011 MARLENE CABRERA APRN 530.81 GERD 03/17/2011 MARLENE CABRERA APRN 729.1 FIBROMYALGIA 03/17/2011 MARLENE CABRERA APRN 250.00 DIABETES II CONTROLLED (UNCOMPLICATED) 03/17/2011 MARLENE CABRERA APRN 272.4 HYPERLIPIDEMIA 03/17/2011 MARLENE CABRERA APRN 300.00 ANXIETY UNSPEC 03/17/2011 MARLENE CABRERA APRN 530.81 GERD 03/17/2011 MARLENE CABRERA APRN 729.1 FIBROMYALGIA 03/17/2011 [facility], ARASH R 250.00 DIABETES II CONTROLLED (UNCOMPLICATED) 03/17/2011 [facility], ARASH R 272.4 HYPERLIPIDEMIA 03/17/2011 [facility], ARASH R 300.00 ANXIETY UNSPEC 03/17/2011 [facility], ARASH R 530.81 GERD 03/17/2011 [facility], ARASH R 729.1 FIBROMYALGIA 03/17/2011 BRODY ARAYA MD 250.00 DIABETES II CONTROLLED (UNCOMPLICATED) 03/17/2011 BRODY ARAYA MD 272.4 HYPERLIPIDEMIA 03/17/2011 BRODY ARAYA MD 300.00 ANXIETY UNSPEC 03/17/2011 BRODY ARAYA MD 530.81 GERD 03/17/2011 BRODY ARAYA MD 729.1 FIBROMYALGIA 03/17/2011 REYNALDO VIEIRA APRN 250.00 DIABETES II CONTROLLED (UNCOMPLICATED) 03/17/2011 REYNALDO VIEIRA APRN 272.4 HYPERLIPIDEMIA 03/17/2011 DARIEL GUN EXAMINER, REYNALDO T 300.00 ANXIETY UNSPEC 03/17/2011 REYNALDO VIEIRA APRN 530.81 GERD 03/17/2011 REYNALDO VIEIRA APRN 729.1 FIBROMYALGIA 03/17/2011 [facility], ARASH R 250.00 DIABETES II CONTROLLED (UNCOMPLICATED) 03/17/2011 [facility], ARASH R 272.4 HYPERLIPIDEMIA 03/17/2011 [facility], ARASH R 300.00 ANXIETY UNSPEC 03/17/2011 [facility] CS, ARASH R 530.81 GERD 03/17/2011 [facility], ARASH R 729.1 FIBROMYALGIA 03/17/2011 REYNALDO VIEIRA APRN 250.00 DIABETES II CONTROLLED (UNCOMPLICATED) 03/17/2011 REYNALDO VIEIRA APRN 272.4 HYPERLIPIDEMIA 03/17/2011 REYNALDO VIEIRA APRN 300.00 ANXIETY UNSPEC 03/17/2011 REYNALDO VIEIRA APRN 530.81 GERD 03/17/2011 REYNALDO VIEIRA APRN 729.1 FIBROMYALGIA 03/17/2011 ARGUETA DO, KIKA K 250.00 DIABETES II CONTROLLED (UNCOMPLICATED) 03/17/2011 ARGUETA DO, KIKA K 272.4 HYPERLIPIDEMIA 03/17/2011 ARGUETA DO, KIKA K 300.00 ANXIETY UNSPEC 03/17/2011 ARGUETA DO, KIKA K 530.81 GERD 03/17/2011 ARGUETA DO, KIKA K 729.1 FIBROMYALGIA 03/17/2011 [facility], ARASH R 250.00 DIABETES II CONTROLLED (UNCOMPLICATED) 03/17/2011 [facility], ARASH R 272.4 HYPERLIPIDEMIA 03/17/2011 [facility] ARASH R 300.00 ANXIETY UNSPEC 03/17/2011 [facility], ARASH R 530.81 GERD 03/17/2011 [facility], ARASH R 729.1 FIBROMYALGIA 03/17/2011 MARLENE CABRERA APRN 250.00 DIABETES II CONTROLLED (UNCOMPLICATED) 03/17/2011 MARLENE CABRERA APRN 272.4 HYPERLIPIDEMIA 03/17/2011 MARLENE CABRERA APRN 300.00 ANXIETY UNSPEC 03/17/2011 MARLENE CABRERA APRN 530.81 GERD 03/17/2011 MARLENE CABRERA APRN 729.1 FIBROMYALGIA 03/17/2011 [facility], ARASH R 250.00 DIABETES II CONTROLLED (UNCOMPLICATED) 03/17/2011 [facility], ARASH R 272.4 HYPERLIPIDEMIA 03/17/2011 [facility], ARASH R 300.00 ANXIETY UNSPEC 03/17/2011 [facility], ARASH R 530.81 GERD 03/17/2011 [facility], ARASH R 729.1 FIBROMYALGIA 03/17/2011 ROSA JUNIOR APRNA J 250.00 DIABETES II CONTROLLED (UNCOMPLICATED) 03/17/2011 SANDI LASSITER, ITZ J 272.4 HYPERLIPIDEMIA 03/17/2011 SANDI LASSITER, ITZ J 300.00 ANXIETY UNSPEC 03/17/2011 SANDI LASSITER, ITZ J 530.81 GERD 03/17/2011 SANDI LASSITER, ITZ J 729.1 FIBROMYALGIA 03/17/2011 ROSA JUNIOR APRNA J 250.00 DIABETES II CONTROLLED (UNCOMPLICATED) 03/17/2011 ROSA JUNIOR APRNA J 272.4 HYPERLIPIDEMIA 03/17/2011 ROSA JUNIOR APRNA J 300.00 ANXIETY UNSPEC 03/17/2011 ROSA JUNIOR APRNA Merrick 530.81 GERD 03/17/2011 ITZ JUNIOR APRN 729.1 FIBROMYALGIA 03/17/2011 BRODY ARAAY MD N 250.00 DIABETES II CONTROLLED (UNCOMPLICATED) 03/17/2011 BRODY ARAYA MD N 272.4 HYPERLIPIDEMIA 03/17/2011 BRODY ARAYA MD N 300.00 ANXIETY UNSPEC 03/17/2011 BRODY ARAYA MD N 530.81 GERD 03/17/2011 BRODY ARAYA MD N 729.1 FIBROMYALGIA 03/17/2011 BRODY ARAYA MD N 250.00 DIABETES II CONTROLLED (UNCOMPLICATED) 03/17/2011 BRODY ARAYA MD N 272.4 HYPERLIPIDEMIA 03/17/2011 BRODY ARAYA MD N 300.00 ANXIETY UNSPEC 03/17/2011 BRODY ARAYA MD N 530.81 GERD 03/17/2011 BRODY ARAYA MD N 729.1 FIBROMYALGIA 03/17/2011 ITZ JUNIOR APRN J 250.00 DIABETES II CONTROLLED (UNCOMPLICATED) 03/17/2011 ITZ JUNIOR APRN J 272.4 HYPERLIPIDEMIA 03/17/2011 ITZ JUNIOR APRN J 300.00 ANXIETY UNSPEC 03/17/2011 ITZ JUNIOR APRN J 530.81 GERD 03/17/2011 ITZ JUNIOR APRN 729.1 FIBROMYALGIA 03/17/2011 ACOSTA DDS, BENJI 250.00 DIABETES II CONTROLLED (UNCOMPLICATED) 03/17/2011 ACOSTA DDS, BENJI 272.4 HYPERLIPIDEMIA 03/17/2011 ACOSTA DDS, BENJI 300.00 ANXIETY UNSPEC 03/17/2011 ACOSTA DDS, BENJI 530.81 GERD 03/17/2011 ACOSTA DDS, BENJI 729.1 FIBROMYALGIA 03/17/2011 ACOSTA DDS, BENJI 250.00 DIABETES II CONTROLLED (UNCOMPLICATED) 03/17/2011 ACOSTA DDS, BENJI 272.4 HYPERLIPIDEMIA 03/17/2011 ACOSTA DDS, BENJI 300.00 ANXIETY UNSPEC 03/17/2011 ACOSTA DDS, BENJI 530.81 GERD 03/17/2011 ACOSTA DDS, BENJI 729.1 FIBROMYALGIA 03/17/2011 SABIHA MAST MD 250.00 DIABETES II CONTROLLED (UNCOMPLICATED) 03/17/2011 SABIHA MAST MD 272.4 HYPERLIPIDEMIA 03/17/2011 SABIHA MAST MD 300.00 ANXIETY UNSPEC 03/17/2011 SABIHA MAST MD 530.81 GERD 03/17/2011 SABIHA MAST MD 729.1 FIBROMYALGIA 03/17/2011 KIKA ARGUETA DO K 250.00 DIABETES II CONTROLLED (UNCOMPLICATED) 03/17/2011 KIKA ARGUETA DO K 272.4 HYPERLIPIDEMIA 03/17/2011 KIKA ARGUETA DO K 300.00 ANXIETY UNSPEC 03/17/2011 BRO ARGUETA DOA K 530.81 GERD 03/17/2011 BRO ARGUETA DOA K 729.1 FIBROMYALGIA 03/17/2011 ITZ JUNIOR APRN 250.00 DIABETES II CONTROLLED (UNCOMPLICATED) 03/17/2011 ITZ JUNIOR APRN 272.4 HYPERLIPIDEMIA 03/17/2011 ITZ JUNIOR APRN 300.00 ANXIETY UNSPEC 03/17/2011 ITZ JUNIOR APRN 530.81 GERD 03/17/2011 ITZ JUNIOR APRN 729.1 FIBROMYALGIA 03/17/2011 ITZ JUNIOR APRN 250.00 DIABETES II CONTROLLED (UNCOMPLICATED) 03/17/2011 SANDI GUN EXAMINER, ITZ J 272.4 HYPERLIPIDEMIA 03/17/2011 SANDI LASSITER, ITZ J 300.00 ANXIETY UNSPEC 03/17/2011 SANDI LASSITER, ITZ J 530.81 GERD 03/17/2011 ROSA JUNIOR APRNA J 729.1 FIBROMYALGIA 03/17/2011 SANDI LASSITER ITZ J 250.00 DIABETES II CONTROLLED (UNCOMPLICATED) 03/17/2011 ROSA JUNIOR APRNA J 272.4 HYPERLIPIDEMIA 03/17/2011 ROSA JUNIOR APRNA J 300.00 ANXIETY UNSPEC 03/17/2011 SANDI LASSITER, ITZ J 530.81 GERD 03/17/2011 SANDI LASSITER, ITZ J 729.1 FIBROMYALGIA 03/17/2011 KADY FERGUSON DOEN F 250.00 DIABETES II CONTROLLED (UNCOMPLICATED) 03/17/2011 KADY FERGUSON DOEN F 272.4 HYPERLIPIDEMIA 03/17/2011 KADY FERGUSON DOEN F 300.00 ANXIETY UNSPEC 03/17/2011 MASSIEL FERGUSON DO F 530.81 GERD 03/17/2011 MASSIEL FERGUSON DO F 729.1 FIBROMYALGIA 03/17/2011 ROSA JUNIOR APRNA J 250.00 DIABETES II CONTROLLED (UNCOMPLICATED) 03/17/2011 ROSA JUNIOR APRNA J 272.4 HYPERLIPIDEMIA 03/17/2011 ROSA JUNIOR APRNA J 300.00 ANXIETY UNSPEC 03/17/2011 CLAUDE JUNIOR APRNINDA J 530.81 GERD 03/17/2011 ROSA JUNIOR APRNA J 729.1 FIBROMYALGIA 03/17/2011 BRO ARGUETA DOA K 250.00 DIABETES II CONTROLLED (UNCOMPLICATED) 03/17/2011 KIKA ARGUETA DO K 272.4 HYPERLIPIDEMIA 03/17/2011 ELLIE DE LA TORRE KIKA K 300.00 ANXIETY UNSPEC 03/17/2011 ARGUETA , KIKA K 530.81 GERD 03/17/2011 BRO ARGUETA DOA K 729.1 FIBROMYALGIA 04/02/2011 465.9 UPPER RESPIRATORY INFECTION 04/02/2011 REYNALDO VIEIRA APRN 465.9 UPPER RESPIRATORY INFECTION 04/02/2011 465.9 UPPER RESPIRATORY INFECTION 04/02/2011 KIKA ARGUETA DO 465.9 UPPER RESPIRATORY INFECTION 04/02/2011 465.9 UPPER RESPIRATORY INFECTION 04/02/2011 DILSHAD ARASH DIAZ 465.9 UPPER RESPIRATORY INFECTION 04/02/2011 465.9 UPPER RESPIRATORY INFECTION 04/02/2011 [facility] R 465.9 UPPER RESPIRATORY INFECTION 04/02/2011 MARLENE CABRERA APRN 465.9 UPPER RESPIRATORY INFECTION 04/02/2011 465.9 Upper Respiratory Infection 04/02/2011 465.9 Upper Respiratory Infection 04/02/2011 465.9 Upper Respiratory Infection 04/02/2011 465.9 Upper Respiratory Infection 04/02/2011 465.9 Upper Respiratory Infection 04/02/2011 465.9 Upper Respiratory Infection 04/02/2011 465.9 Upper Respiratory Infection 04/02/2011 465.9 Upper Respiratory Infection 04/02/2011 465.9 Upper Respiratory Infection 04/02/2011 465.9 Upper Respiratory Infection 04/02/2011 465.9 Upper Respiratory Infection 04/02/2011 465.9 Upper Respiratory Infection 04/02/2011 465.9 Upper Respiratory Infection 04/02/2011 REYNALDO VIEIRA APRN T 465.9 Upper Respiratory Infection 04/02/2011 REYNALDO VIEIRA APRN T 465.9 Upper Respiratory Infection 04/02/2011 REYNALDO VIEIRA APRN T 465.9 Upper Respiratory Infection 04/02/2011 SABIHA MAST MD 465.9 Upper Respiratory Infection 04/02/2011 KIKA ARGUETA DO 465.9 Upper Respiratory Infection 04/02/2011 MARLENE CABRERA APRN 465.9 Upper Respiratory Infection 04/02/2011 MARLENE CABRERA APRN 465.9 Upper Respiratory Infection 04/02/2011 [facility] ARASH R 465.9 Upper Respiratory Infection 04/02/2011 BRODY ARAYA MD 465.9 Upper Respiratory Infection 04/02/2011 REYNALDO VIEIRA APRN T 465.9 Upper Respiratory Infection 04/02/2011 [facility], ARASH R 465.9 Upper Respiratory Infection 04/02/2011 REYNALDO VIEIRA APRN T 465.9 Upper Respiratory Infection 04/02/2011 KIKA ARGUETA DO K 465.9 Upper Respiratory Infection 04/02/2011 [facility], ARASH R 465.9 Upper Respiratory Infection 04/02/2011 MARLENE CABRERA APRN 465.9 Upper Respiratory Infection 04/02/2011 [facility], [facility]ASH R 465.9 Upper Respiratory Infection 04/02/2011 ITZ JUNIOR APRN 465.9 Upper Respiratory Infection 04/02/2011 ITZ JUNIOR APRN J 465.9 Upper Respiratory Infection 04/02/2011 BRODY ARAYA MD 465.9 Upper Respiratory Infection 04/02/2011 BRODY ARAYA MD 465.9 Upper Respiratory Infection 04/02/2011 ITZ JUNIOR APRN J 465.9 Upper Respiratory Infection 04/02/2011 [facility], BENJI 465.9 Upper Respiratory Infection 04/02/2011 [facility], BENJI 465.9 Upper Respiratory Infection 04/02/2011 SABIHA MAST MD 465.9 Upper Respiratory Infection 04/02/2011 KIKA ARGUETA DO K 465.9 Upper Respiratory Infection 04/02/2011 ITZ JUNIOR APRN J 465.9 Upper Respiratory Infection 04/02/2011 ITZ JUNIOR APRN J 465.9 Upper Respiratory Infection 04/02/2011 ITZ JUNIOR APRN J 465.9 Upper Respiratory Infection 04/02/2011 MASSIEL FERGUSON DO 465.9 UPPER RESPIRATORY INFECTION 04/02/2011 ITZ JUNIOR APRN J 465.9 Upper Respiratory Infection 04/02/2011 KIKA ARGUETA DO 465.9 Upper Respiratory Infection 04/15/2011 599.0 URINARY TRACT INFECTION 04/15/2011 780.52 INSOMNIA UNSPECIFIED 04/15/2011 REYNALDO VIEIRA APRN 599.0 URINARY TRACT INFECTION 04/15/2011 REYNALDO VIEIRA APRN 780.52 INSOMNIA UNSPECIFIED 04/15/2011 599.0 URINARY TRACT INFECTION 04/15/2011 780.52 INSOMNIA UNSPECIFIED 04/15/2011 KIKA ARGUETA DO K 599.0 URINARY TRACT INFECTION 04/15/2011 KIKA ARGUETA DO K 780.52 INSOMNIA UNSPECIFIED 04/15/2011 599.0 URINARY TRACT INFECTION 04/15/2011 780.52 INSOMNIA UNSPECIFIED 04/15/2011 [facility] ARASH R 599.0 URINARY TRACT INFECTION 04/15/2011 [facility] ARASH R 780.52 INSOMNIA UNSPECIFIED 04/15/2011 599.0 URINARY TRACT INFECTION 04/15/2011 780.52 INSOMNIA UNSPECIFIED 04/15/2011 [facility], ARASH R 599.0 URINARY TRACT INFECTION 04/15/2011 [facility] ARASH R 780.52 INSOMNIA UNSPECIFIED 04/15/2011 MARLENE CABRERA APRN 599.0 URINARY TRACT INFECTION 04/15/2011 MARLENE CABRERA APRN 780.52 INSOMNIA UNSPECIFIED 04/15/2011 599.0 Urinary Tract Infection 04/15/2011 780.52 INSOMNIA UNSPECIFIED 04/15/2011 599.0 Urinary Tract Infection 04/15/2011 780.52 INSOMNIA UNSPECIFIED 04/15/2011 599.0 Urinary Tract Infection 04/15/2011 780.52 INSOMNIA UNSPECIFIED 04/15/2011 599.0 Urinary Tract Infection 04/15/2011 780.52 INSOMNIA UNSPECIFIED 04/15/2011 599.0 Urinary Tract Infection 04/15/2011 780.52 INSOMNIA UNSPECIFIED 04/15/2011 599.0 Urinary Tract Infection 04/15/2011 780.52 INSOMNIA UNSPECIFIED 04/15/2011 599.0 Urinary Tract Infection 04/15/2011 780.52 INSOMNIA UNSPECIFIED 04/15/2011 599.0 Urinary Tract Infection 04/15/2011 780.52 INSOMNIA UNSPECIFIED 04/15/2011 599.0 Urinary Tract Infection 04/15/2011 780.52 INSOMNIA UNSPECIFIED 04/15/2011 599.0 Urinary Tract Infection 04/15/2011 780.52 INSOMNIA UNSPECIFIED 04/15/2011 599.0 Urinary Tract Infection 04/15/2011 780.52 INSOMNIA UNSPECIFIED 04/15/2011 599.0 Urinary Tract Infection 04/15/2011 780.52 INSOMNIA UNSPECIFIED 04/15/2011 599.0 Urinary Tract Infection 04/15/2011 780.52 INSOMNIA UNSPECIFIED 04/15/2011 REYNALDO VIEIRA APRN 599.0 Urinary Tract Infection 04/15/2011 REYNALDO VIEIRA APRN 780.52 INSOMNIA UNSPECIFIED 04/15/2011 REYNALDO VIEIRA APRN 599.0 Urinary Tract Infection 04/15/2011 REYNALDO VIEIRA APRN 780.52 INSOMNIA UNSPECIFIED 04/15/2011 REYNALDO VIEIRA APRN 599.0 Urinary Tract Infection 04/15/2011 REYNALDO VIEIRA APRN 780.52 INSOMNIA UNSPECIFIED 04/15/2011 SABIHA MAST MD 599.0 Urinary Tract Infection 04/15/2011 SABIHA MAST MD 780.52 INSOMNIA UNSPECIFIED 04/15/2011 KIKA ARGUETA DO 599.0 Urinary Tract Infection 04/15/2011 ARGUETA DO, KIKA K 780.52 INSOMNIA UNSPECIFIED 04/15/2011 MARLENE CABRERA APRN 599.0 Urinary Tract Infection 04/15/2011 MARLENE CABRERA APRN 780.52 INSOMNIA UNSPECIFIED 04/15/2011 MARLENE CABRERA APRN 599.0 Urinary Tract Infection 04/15/2011 MARLENE CABRERA APRN 780.52 INSOMNIA UNSPECIFIED 04/15/2011 [facility] R 599.0 Urinary Tract Infection 04/15/2011 [facility] R 780.52 INSOMNIA UNSPECIFIED 04/15/2011 BRODY ARAYA MD 599.0 Urinary Tract Infection 04/15/2011 BRODY ARAYA MD 780.52 INSOMNIA UNSPECIFIED 04/15/2011 REYNALDO VIEIRA APRN T 599.0 Urinary Tract Infection 04/15/2011 REYNALDO VIEIRA APRN T 780.52 INSOMNIA UNSPECIFIED 04/15/2011 [facility] R 599.0 Urinary Tract Infection 04/15/2011 [facility] R 780.52 INSOMNIA UNSPECIFIED 04/15/2011 DARIEL LASSITER REYNALDO T 599.0 Urinary Tract Infection 04/15/2011 DARIEL LASSITER REYNALDO T 780.52 INSOMNIA UNSPECIFIED 04/15/2011 ARGUETA DO, KIKA K 599.0 Urinary Tract Infection 04/15/2011 ARGUETA DO, KIKA K 780.52 INSOMNIA UNSPECIFIED 04/15/2011 [facility] R 599.0 Urinary Tract Infection 04/15/2011 [facility] R 780.52 INSOMNIA UNSPECIFIED 04/15/2011 MARLENE CABRERA APRN D 599.0 Urinary Tract Infection 04/15/2011 MARLENE CABRERA APRN 780.52 INSOMNIA UNSPECIFIED 04/15/2011 [facility] R 599.0 Urinary Tract Infection 04/15/2011 [facility] R 780.52 INSOMNIA UNSPECIFIED 04/15/2011 ROSA JUNIOR APRNA J 599.0 Urinary Tract Infection 04/15/2011 ROSA JUNIOR APRNA J 780.52 INSOMNIA UNSPECIFIED 04/15/2011 ROSA JUNIOR APRNA J 599.0 Urinary Tract Infection 04/15/2011 SANDI GUN EXAMINER, ITZ J 780.52 INSOMNIA UNSPECIFIED 04/15/2011 BRODY ARAYA MD N 599.0 Urinary Tract Infection 04/15/2011 BRODY ARAYA MD N 780.52 INSOMNIA UNSPECIFIED 04/15/2011 BRODY ARAYA MD N 599.0 Urinary Tract Infection 04/15/2011 BRODY ARAYA MD N 780.52 INSOMNIA UNSPECIFIED 04/15/2011 SANDI LASSITER, ITZ J 599.0 Urinary Tract Infection 04/15/2011 SANDI LASSITER, ITZ J 780.52 INSOMNIA UNSPECIFIED 04/15/2011 ACO[facility] DDS, BENJI 599.0 Urinary Tract Infection 04/15/2011 [facility]STA DDS, BENJI 780.52 INSOMNIA UNSPECIFIED 04/15/2011 [facility]COSTA DDS, BENJI 599.0 Urinary Tract Infection 04/15/2011 [facility] DDS, BENJI 780.52 INSOMNIA UNSPECIFIED 04/15/2011 SABIHA MAST MD 599.0 Urinary Tract Infection 04/15/2011 SABIHA MAST MD 780.52 INSOMNIA UNSPECIFIED 04/15/2011 ARGUETA DO, KIKA K 599.0 Urinary Tract Infection 04/15/2011 ARGUETA DO, KIKA K 780.52 INSOMNIA UNSPECIFIED 04/15/2011 SANDI LASSITER, ITZ J 599.0 Urinary Tract Infection 04/15/2011 SANDI LASSITER, ITZ J 780.52 INSOMNIA UNSPECIFIED 04/15/2011 SANDI LASSITER ITZ J 599.0 Urinary Tract Infection 04/15/2011 SANDI LASSITER ITZ J 780.52 INSOMNIA UNSPECIFIED 04/15/2011 SANDI LASSITER, ITZ J 599.0 Urinary Tract Infection 04/15/2011 SANDI LYNNN, ITZ J 780.52 INSOMNIA UNSPECIFIED 04/15/2011 WERDER DO, MASSIEL F 599.0 URINARY TRACT INFECTION 04/15/2011 WERDER DO, MASSIEL F 780.52 INSOMNIA UNSPECIFIED 04/15/2011 SANDI LYNNN, ITZ J 599.0 Urinary Tract Infection 04/15/2011 SANDI LASSITER, ITZ J 780.52 INSOMNIA UNSPECIFIED 04/15/2011 ARGUETA DO, KIKA K 599.0 Urinary Tract Infection 04/15/2011 ARGUETA DO, KIKA K 780.52 INSOMNIA UNSPECIFIED 05/04/2011 Ot 789.06 ABDOMINAL PAIN, EPIGASTRIC 05/08/2011 Ot 530.81 05/08/2011 Ot 553.3 05/12/2011 786.05 SHORTNESS OF BREATH 05/12/2011 786.50 CHEST PAIN 05/12/2011 RENYALDO VIEIRA APRN T 786.05 SHORTNESS OF BREATH 05/12/2011 REYNALDO VIEIRA APRN 786.50 CHEST PAIN 05/12/2011 786.05 SHORTNESS OF BREATH 05/12/2011 786.50 CHEST PAIN 05/12/2011 ARGUETA DO KIKA K 786.05 SHORTNESS OF BREATH 05/12/2011 ARGUETA DO KIKA K 786.50 CHEST PAIN 05/12/2011 786.05 SHORTNESS OF BREATH 05/12/2011 786.50 CHEST PAIN 05/12/2011 [facility], ARASH R 786.05 SHORTNESS OF BREATH 05/12/2011 [facility], ARASH R 786.50 CHEST PAIN 05/12/2011 786.05 SHORTNESS OF BREATH 05/12/2011 786.50 CHEST PAIN 05/12/2011 [facility], ARASH R 786.05 SHORTNESS OF BREATH 05/12/2011 [facility], ARASH R 786.50 CHEST PAIN 05/12/2011 MARLENE CABRERA APRN 786.05 SHORTNESS OF BREATH 05/12/2011 MARLENE CABRERA APRN 786.50 CHEST PAIN 05/12/2011 786.05 Shortness Of Breath 05/12/2011 786.50 CHEST PAIN 05/12/2011 786.05 Shortness Of Breath 05/12/2011 786.50 CHEST PAIN 05/12/2011 786.05 Shortness Of Breath 05/12/2011 786.50 CHEST PAIN 05/12/2011 786.05 Shortness Of Breath 05/12/2011 786.50 CHEST PAIN 05/12/2011 786.05 Shortness Of Breath 05/12/2011 786.50 CHEST PAIN 05/12/2011 786.05 Shortness Of Breath 05/12/2011 786.50 CHEST PAIN 05/12/2011 786.05 Shortness Of Breath 05/12/2011 786.50 CHEST PAIN 05/12/2011 786.05 Shortness Of Breath 05/12/2011 786.50 CHEST PAIN 05/12/2011 786.05 Shortness Of Breath 05/12/2011 786.50 CHEST PAIN 05/12/2011 786.05 Shortness Of Breath 05/12/2011 786.50 CHEST PAIN 05/12/2011 786.05 Shortness Of Breath 05/12/2011 786.50 CHEST PAIN 05/12/2011 786.05 Shortness Of Breath 05/12/2011 786.50 CHEST PAIN 05/12/2011 786.05 Shortness Of Breath 05/12/2011 786.50 CHEST PAIN 05/12/2011 DARIEL GUN EXAMINER, REYNALDO T 786.05 Shortness Of Breath 05/12/2011 DARIEL GUN EXAMINER, REYNALDO T 786.50 CHEST PAIN 05/12/2011 DARIEL GUN EXAMINER, REYNALDO T 786.05 Shortness Of Breath 05/12/2011 DARIEL GUN EXAMINER, REYNALDO T 786.50 CHEST PAIN 05/12/2011 DARIEL LASSITER, REYNALDO T 786.05 Shortness Of Breath 05/12/2011 DARIEL LASSITER, REYNALDO T 786.50 CHEST PAIN 05/12/2011 SABIHA MAST MD 786.05 Shortness Of Breath 05/12/2011 SABIHA MAST MD 786.50 CHEST PAIN 05/12/2011 ARGUETA DO, KIKA K 786.05 Shortness Of Breath 05/12/2011 ARGUETA DO, KIKA K 786.50 CHEST PAIN 05/12/2011 MARLENE CABRERA APRN 786.05 Shortness Of Breath 05/12/2011 MARLENE CABRERA APRN 786.50 CHEST PAIN 05/12/2011 MARLENE CABRERA APRN 786.05 Shortness Of Breath 05/12/2011 MARLENE CABRERA APRN 786.50 CHEST PAIN 05/12/2011 [facility] R 786.05 Shortness Of Breath 05/12/2011 [facility] R 786.50 CHEST PAIN 05/12/2011 BRODY ARAYA MD 786.05 Shortness Of Breath 05/12/2011 BRODY ARAYA MD 786.50 CHEST PAIN 05/12/2011 DARIEL LASSITER REYNALDO T 786.05 Shortness Of Breath 05/12/2011 DARIEL LASSITER REYNALDO T 786.50 CHEST PAIN 05/12/2011 [facility] R 786.05 Shortness Of Breath 05/12/2011 [facility] R 786.50 CHEST PAIN 05/12/2011 REYNALDO VIEIRA APRN T 786.05 Shortness Of Breath 05/12/2011 REYNALDO VIEIRA APRN T 786.50 CHEST PAIN 05/12/2011 ARGUETA DO, KIKA K 786.05 Shortness Of Breath 05/12/2011 ARGUETA DO, KIKA K 786.50 CHEST PAIN 05/12/2011 [facility] R 786.05 Shortness Of Breath 05/12/2011 [facility] 786.50 CHEST PAIN 05/12/2011 MARLENE CABRERA APRN D 786.05 Shortness Of Breath 05/12/2011 MARLENE CABRERA APRN D 786.50 CHEST PAIN 05/12/2011 [facility] 786.05 Shortness Of Breath 05/12/2011 [facility] 786.50 CHEST PAIN 05/12/2011 SANDI LASSITER ITZ J 786.05 Shortness Of Breath 05/12/2011 SANDI LASSITER, ITZ J 786.50 CHEST PAIN 05/12/2011 SANDI LASSITER ITZ J 786.05 Shortness Of Breath 05/12/2011 SANDI LASSITER, ITZ J 786.50 CHEST PAIN 05/12/2011 BRODY ARAYA MD N 786.05 Shortness Of Breath 05/12/2011 BRODY ARAYA MD N 786.50 CHEST PAIN 05/12/2011 BRODY ARAYA MD N 786.05 Shortness Of Breath 05/12/2011 BRODY ARAYA MD N 786.50 CHEST PAIN 05/12/2011 SANDI LASSITER ITZ J 786.05 Shortness Of Breath 05/12/2011 SANDI LASSITER ITZ J 786.50 CHEST PAIN 05/12/2011 [facility] DDS, BENJI 786.05 Shortness Of Breath 05/12/2011 [facility] DDS, BENJI 786.50 CHEST PAIN 05/12/2011 [facility] DDS, BENJI 786.05 Shortness Of Breath 05/12/2011 [facility] DDS, BENJI 786.50 CHEST PAIN 05/12/2011 SABIHA MAST MD 786.05 Shortness Of Breath 05/12/2011 SABIHA MAST MD 786.50 CHEST PAIN 05/12/2011 ARGUETA DO, KIKA K 786.05 Shortness Of Breath 05/12/2011 ARGUETA KIKA DE LA TORRE K 786.50 CHEST PAIN 05/12/2011 SANDI GUN EXAMINER, ITZ J 786.05 Shortness Of Breath 05/12/2011 SANDI GUN EXAMINER, ITZ J 786.50 CHEST PAIN 05/12/2011 SANDI GUN EXAMINER, ITZ J 786.05 Shortness Of Breath 05/12/2011 SANDI GUN EXAMINER, ITZ J 786.50 CHEST PAIN 05/12/2011 SANDI LYNNN, ITZ J 786.05 Shortness Of Breath 05/12/2011 SANDI GUN EXAMINER, ITZ J 786.50 CHEST PAIN 05/12/2011 WERHILARIO DO, MASSIEL F 786.05 SHORTNESS OF BREATH 05/12/2011 MARTY DO, MASSIEL F 786.50 CHEST PAIN 05/12/2011 SANDI GUN EXAMINER, ITZ J 786.05 Shortness Of Breath 05/12/2011 SANDI MAIKOL, ITZ J 786.50 CHEST PAIN 05/12/2011 ARGUETA KIKA DE LA TORRE K 786.05 Shortness Of Breath 05/12/2011 KIKA ARGUETA DO 786.50 CHEST PAIN 05/12/2011 Ot 305.90 05/12/2011 Ot 599.0 05/12/2011 Ot 780.2 05/12/2011 Ot 793.19 05/30/2011 Ot 558.9 05/30/2011 Ot 780.2 06/07/2011 Ot 327.23 06/07/2011 Ot 530.81 06/07/2011 Ot 553.3 06/07/2011 Ot 599.0 06/07/2011 Ot V58.69 06/08/2011 Ot 787.03 06/08/2011 Ot 787.91 06/08/2011 Ot 789.06 06/08/2011 Ot V45.89 06/13/2011 Ot 786.2 06/24/2011 477.9 RHINITIS 06/24/2011 REYNALDO VIEIRA APRN 477.9 RHINITIS 06/24/2011 477.9 RHINITIS 06/24/2011 KIKA ARGUETA DO 477.9 RHINITIS 06/24/2011 477.9 RHINITIS 06/24/2011 [facility] 06/24/2011 477.9 RHINITIS 06/24/2011 [facility], ARASH R 477.9 RHINITIS 06/24/2011 MARLENE CABRERA APRN 477.9 RHINITIS 06/24/2011 477.9 Rhinitis 06/24/2011 477.9 Rhinitis 06/24/2011 477.9 Rhinitis 06/24/2011 477.9 Rhinitis 06/24/2011 477.9 Rhinitis 06/24/2011 477.9 Rhinitis 06/24/2011 477.9 Rhinitis 06/24/2011 477.9 Rhinitis 06/24/2011 477.9 Rhinitis 06/24/2011 477.9 Rhinitis 06/24/2011 477.9 Rhinitis 06/24/2011 477.9 Rhinitis 06/24/2011 477.9 Rhinitis 06/24/2011 REYNALDO VIEIRA APRN 477.9 Rhinitis 06/24/2011 REYNALDO VIEIRA APRN 477.9 Rhinitis 06/24/2011 REYNALDO VIEIRA APRN 477.9 Rhinitis 06/24/2011 SABIHA MAST MD 477.9 Rhinitis 06/24/2011 KIKA ARGUETA DO 477.9 Rhinitis 06/24/2011 MARLENE CABRERA APRN 477.9 Rhinitis 06/24/2011 MARLENE CABRERA APRN 477.9 Rhinitis 06/24/2011 [facility] R 477.9 Rhinitis 06/24/2011 BRODY ARAYA MD 477.9 Rhinitis 06/24/2011 REYNALDO VIEIRA APRN 477.9 Rhinitis 06/24/2011 [facility] Saucedo 477.9 Rhinitis 06/24/2011 REYNALDO VIEIRA APRN 477.9 Rhinitis 06/24/2011 KIKA ARGUETA DO 477.9 Rhinitis 06/24/2011 [facility] R 477.9 Rhinitis 06/24/2011 MARLENE CABRERA APRN 477.9 Rhinitis 06/24/2011 [facility] R 477.9 Rhinitis 06/24/2011 ITZ JUNIOR APRN 477.9 Rhinitis 06/24/2011 ITZ JUNIOR APRN 477.9 Rhinitis 06/24/2011 BRODY ARAYA MD 477.9 Rhinitis 06/24/2011 BRODY ARAYA MD 477.9 Rhinitis 06/24/2011 ITZ JUNIOR APRN 477.9 Rhinitis 06/24/2011 BENJI ACOSTA DDS 477.9 Rhinitis 06/24/2011 BENJI ACOSTA DDS 477.9 Rhinitis 06/24/2011 SABIHA MAST MD 477.9 Rhinitis 06/24/2011 KIKA ARGUETA DO 477.9 Rhinitis 06/24/2011 ITZ JUNIOR APRN 477.9 Rhinitis 06/24/2011 ITZ JUNIOR APRN 477.9 Rhinitis 06/24/2011 ITZ JUNIOR APRN 477.9 Rhinitis 06/24/2011 MASSIEL FERGUSON DO 477.9 RHINITIS 06/24/2011 ITZ JUNIOR APRN 477.9 Rhinitis 06/24/2011 KIKA ARGUETA DO 477.9 Rhinitis 07/10/2011 Ot 327.23 07/10/2011 Ot 780.39 07/10/2011 Ot 780.96 07/10/2011 Ot V58.69 07/14/2011 780.57 SLEEP APNEA 07/14/2011 REYNALDO VIEIRA APRN 780.57 SLEEP APNEA 07/14/2011 780.57 SLEEP APNEA 07/14/2011 KIKA ARGUETA DO 780.57 SLEEP APNEA 07/14/2011 780.57 SLEEP APNEA 07/14/2011 [facility]A 07/14/2011 780.57 SLEEP APNEA 07/14/[facility] SLEEP [facility]NEA 07/14/2011 MARLENE CABRERA APRN 780.57 SLEEP APNEA 07/14/2011 780.57 SLEEP APNEA 07/14/2011 780.57 SLEEP APNEA 07/14/2011 780.57 SLEEP APNEA 07/14/2011 780.57 SLEEP APNEA 07/14/2011 780.57 SLEEP APNEA 07/14/2011 780.57 SLEEP APNEA 07/14/2011 780.57 SLEEP APNEA 07/14/2011 780.57 SLEEP APNEA 07/14/2011 780.57 SLEEP APNEA 07/14/2011 780.57 SLEEP APNEA 07/14/2011 780.57 SLEEP APNEA 07/14/2011 780.57 SLEEP APNEA 07/14/2011 780.57 SLEEP APNEA 07/14/2011 REYNALDO VIEIRA APRN 780.57 SLEEP APNEA 07/14/2011 REYNALDO VIEIRA APRN 780.57 SLEEP APNEA 07/14/2011 REYNALDO VIEIRA APRN 780.57 SLEEP APNEA 07/14/2011 SABIHA MAST MD 780.57 SLEEP APNEA 07/14/2011 KIKA ARGUETA DO 780.57 SLEEP APNEA 07/14/2011 MARLENE CABRERA APRN 780.57 SLEEP APNEA 07/14/2011 MARLENE CABRERA APRN 780.57 SLEEP APNEA 07/14/2011 [facility] R 780.57 SLEEP APNEA 07/14/2011 BRODY ARAYA MD 780.57 SLEEP APNEA 07/14/2011 REYNALDO VIEIRA APRN 780.57 SLEEP APNEA 07/14/2011 [facility] R 780.57 SLEEP APNEA 07/14/2011 REYNALDO VIEIRA APRN 780.57 SLEEP APNEA 07/14/2011 KIKA ARGUETA DO 780.57 SLEEP APNEA 07/14/2011 [facility] R 780.57 SLEEP APNEA 07/14/2011 MARLENE CABRERA APRN 780.57 SLEEP APNEA 07/14/2011 [facility] R 780.57 SLEEP APNEA 07/14/2011 ITZ JUNIOR APRN 780.57 SLEEP APNEA 07/14/2011 ITZ JUNIOR APRN 780.57 SLEEP APNEA 07/14/2011 BRODY ARAYA MD 780.57 SLEEP APNEA 07/14/2011 BRODY ARAYA MD 780.57 SLEEP APNEA 07/14/2011 ITZ JUNIOR APRN 780.57 SLEEP APNEA 07/14/2011 [facility] DDSBENJI 780.57 SLEEP APNEA 07/14/2011 [facility] DDS, BENJI 780.57 SLEEP APNEA 07/14/2011 SABIHA MAST MD 780.57 SLEEP APNEA 07/14/2011 KIKA ARGUETA DO 780.57 SLEEP APNEA 07/14/2011 ITZ JUNIOR APRN 780.57 SLEEP APNEA 07/14/2011 ITZ JUNIOR APRN 780.57 SLEEP APNEA 07/14/2011 ITZ JUNIOR APRN J 780.57 SLEEP APNEA 07/14/2011 MASSIEL FERGUSON DO 780.57 SLEEP APNEA 07/14/2011 ITZ JUNIOR APRN J 780.57 SLEEP APNEA 07/14/2011 KIKA ARGUETA DO 780.57 SLEEP APNEA 07/29/2011 Ot 327.23 08/06/2011 V72.31 Segmental Paving Supervisor Exam, Routine 08/06/2011 REYNALDO VIEIRA APRN V72.31 Segmental Paving Supervisor Exam, Routine 08/06/2011 V72.31 Segmental Paving Supervisor Exam, Routine 08/06/2011 KIKA ARGUETA DO V72.31 Segmental Paving Supervisor Exam, Routine 08/06/2011 V72.31 Segmental Paving Supervisor Exam, Routine 08/06/2011 [facility] R V72.31 Segmental Paving Supervisor Exam, Routine 08/06/2011 V72.31 Segmental Paving Supervisor Exam, Routine 08/06/2011 [facility] R V72.31 Segmental Paving Supervisor Exam, Routine 08/06/2011 MARLENE CABRERA APRN V72.31 Segmental Paving Supervisor Exam, Routine 08/06/2011 V72.31 Segmental Paving Supervisor Exam, Routine 08/06/2011 V72.31 Segmental Paving Supervisor Exam, Routine 08/06/2011 V72.31 Segmental Paving Supervisor Exam, Routine 08/06/2011 V72.31 Segmental Paving Supervisor Exam, Routine 08/06/2011 V72.31 Segmental Paving Supervisor Exam, Routine 08/06/2011 V72.31 Segmental Paving Supervisor Exam, Routine 08/06/2011 V72.31 Segmental Paving Supervisor Exam, Routine 08/06/2011 V72.31 Segmental Paving Supervisor Exam, Routine 08/06/2011 V72.31 Segmental Paving Supervisor Exam, Routine 08/06/2011 V72.31 Segmental Paving Supervisor Exam, Routine 08/06/2011 V72.31 Segmental Paving Supervisor Exam, Routine 08/06/2011 V72.31 Segmental Paving Supervisor Exam, Routine 08/06/2011 V72.31 Segmental Paving Supervisor Exam, Routine 08/06/2011 REYNALDO VIEIRA APRN V72.31 Segmental Paving Supervisor Exam, Routine 08/06/2011 REYNALDO VIEIRA APRN V72.31 Segmental Paving Supervisor Exam, Routine 08/06/2011 REYNALDO VIEIRA APRN V72.31 Segmental Paving Supervisor Exam, Routine 08/06/2011 SABIHA MAST MD V72.31 Segmental Paving Supervisor Exam, Routine 08/06/2011 KIKA ARGUETA DO V72.31 Segmental Paving Supervisor Exam, Routine 08/06/2011 MARLENE CABRERA APRN V72.31 Segmental Paving Supervisor Exam, Routine 08/06/2011 MARLENE CABRERA APRN V72.31 Segmental Paving Supervisor Exam, Routine 08/06/2011 [facility] Saucedo V72.31 Segmental Paving Supervisor Exam, Routine 08/06/2011 BRODY ARAYA MD V72.31 Segmental Paving Supervisor Exam, Routine 08/06/2011 REYNALDO VIEIRA APRN V72.31 Segmental Paving Supervisor Exam, Routine 08/06/2011 [facility] R V72.31 Segmental Paving Supervisor Exam, Routine 08/06/2011 REYNALDO VIEIRA APRN V72.31 Segmental Paving Supervisor Exam, Routine 08/06/2011 KIKA ARGUETA DO V72.31 Segmental Paving Supervisor Exam, Routine 08/06/2011 [facility] R V72.31 Segmental Paving Supervisor Exam, Routine 08/06/2011 MARLENE CABRERA APRN V72.31 Segmental Paving Supervisor Exam, Routine 08/06/2011 [facility] Saucedo V72.31 Segmental Paving Supervisor Exam, Routine 08/06/2011 ITZ JUNIOR APRN V72.31 Segmental Paving Supervisor Exam, Routine 08/06/2011 ITZ JUNIOR APRN V72.31 Segmental Paving Supervisor Exam, Routine 08/06/2011 BRODY ARAYA MD V72.31 Segmental Paving Supervisor Exam, Routine 08/06/2011 BRODY ARAYA MD V72.31 Segmental Paving Supervisor Exam, Routine 08/06/2011 ITZ JUNIOR APRN V72.31 Segmental Paving Supervisor Exam, Routine 08/06/2011 BENJI ACOSTA DDS V72.31 Segmental Paving Supervisor Exam, Routine 08/06/2011 BENJI ACOSTA DDS V72.31 Segmental Paving Supervisor Exam, Routine 08/06/2011 SABIHA MAST MD V72.31 Segmental Paving Supervisor Exam, Routine 08/06/2011 KIKA ARGUETA DO V72.31 Segmental Paving Supervisor Exam, Routine 08/06/2011 ITZ JUNIOR APRN V72.31 Segmental Paving Supervisor Exam, Routine 08/06/2011 ITZ JUNIOR APRN V72.31 Segmental Paving Supervisor Exam, Routine 08/06/2011 ITZ JUNIOR APRN V72.31 Segmental Paving Supervisor Exam, Routine 08/06/2011 MASSIEL FERGUSON DO V72.31 Segmental Paving Supervisor Exam, Routine 08/06/2011 ITZ JUNIOR APRN V72.31 Segmental Paving Supervisor Exam, Routine 08/06/2011 KIKA ARGUETA DO V72.31 Segmental Paving Supervisor Exam, Routine 10/12/2011 Ot 780.39 11/29/2011 Ot 345.90 11/29/2011 Ot V58.69 01/02/2012 Ot 599.0 01/02/2012 Ot 780.39 01/03/2012 Ot 599.0 01/03/2012 Ot 782.1 01/05/2012 780.39 OTHER CONVULSIONS 01/05/2012 780.93 MEMORY LOSS 01/05/2012 E888.9 UNSPECIFIED ACCIDENTAL FALL 01/05/2012 REYNALDO VIEIRA APRN 780.39 OTHER CONVULSIONS 01/05/2012 REYNALDO VIEIRA APRN 780.93 MEMORY LOSS 01/05/2012 REYNALDO VIEIRA APRN E888.9 UNSPECIFIED ACCIDENTAL FALL 01/05/2012 780.39 OTHER CONVULSIONS 01/05/2012 780.93 MEMORY LOSS 01/05/2012 E888.9 UNSPECIFIED ACCIDENTAL FALL 01/05/2012 ARGUETA DO, KIKA K 780.39 OTHER CONVULSIONS 01/05/2012 ARGUETA DO, KIKA K 780.93 MEMORY LOSS 01/05/2012 ARGUETA DO, KIKA K E888.9 UNSPECIFIED ACCIDENTAL FALL 01/05/2012 780.39 OTHER CONVULSIONS 01/05/2012 780.93 MEMORY LOSS 01/05/2012 E888.9 UNSPECIFIED ACCIDENTAL FALL 01/05/2012 [facility] R 780.39 OTHER CONVULSIONS 01/05/2012 [facility] R 780.93 MEMORY LOSS 01/05/2012 [facility] R E888.9 UNSPECIFIED ACCIDENTAL FALL 01/05/2012 780.39 OTHER CONVULSIONS 01/05/2012 780.93 MEMORY LOSS 01/05/2012 E888.9 UNSPECIFIED ACCIDENTAL FALL 01/05/2012 [facility] R 780.39 OTHER CONVULSIONS 01/05/2012 [facility] R 780.93 MEMORY LOSS 01/05/2012 [facility] R E888.9 UNSPECIFIED ACCIDENTAL FALL 01/05/2012 MARLENE CABRERA APRN 780.39 OTHER CONVULSIONS 01/05/2012 MARLENE CABRERA APRN 780.93 MEMORY LOSS 01/05/2012 MARLENE CABRERA APRN E888.9 UNSPECIFIED ACCIDENTAL FALL 01/05/2012 780.39 OTHER CONVULSIONS 01/05/2012 780.93 Memory Loss 01/05/2012 E888.9 Unspecified Accidental Fall 01/05/2012 780.39 OTHER CONVULSIONS 01/05/2012 780.93 Memory Loss 01/05/2012 E888.9 Unspecified Accidental Fall 01/05/2012 780.39 OTHER CONVULSIONS 01/05/2012 780.93 Memory Loss 01/05/2012 E888.9 Unspecified Accidental Fall 01/05/2012 780.39 OTHER CONVULSIONS 01/05/2012 780.93 Memory Loss 01/05/2012 E888.9 Unspecified Accidental Fall 01/05/2012 780.39 OTHER CONVULSIONS 01/05/2012 780.93 Memory Loss 01/05/2012 E888.9 Unspecified Accidental Fall 01/05/2012 780.39 OTHER CONVULSIONS 01/05/2012 780.93 Memory Loss 01/05/2012 E888.9 Unspecified Accidental Fall 01/05/2012 780.39 OTHER CONVULSIONS 01/05/2012 780.93 Memory Loss 01/05/2012 E888.9 Unspecified Accidental Fall 01/05/2012 780.39 OTHER CONVULSIONS 01/05/2012 780.93 Memory Loss 01/05/2012 E888.9 Unspecified Accidental Fall 01/05/2012 780.39 OTHER CONVULSIONS 01/05/2012 780.93 Memory Loss 01/05/2012 E888.9 Unspecified Accidental Fall 01/05/2012 780.39 OTHER CONVULSIONS 01/05/2012 780.93 Memory Loss 01/05/2012 E888.9 Unspecified Accidental Fall 01/05/2012 780.39 OTHER CONVULSIONS 01/05/2012 780.93 Memory Loss 01/05/2012 E888.9 Unspecified Accidental Fall 01/05/2012 780.39 OTHER CONVULSIONS 01/05/2012 780.93 Memory Loss 01/05/2012 E888.9 Unspecified Accidental Fall 01/05/2012 780.39 OTHER CONVULSIONS 01/05/2012 780.93 Memory Loss 01/05/2012 E888.9 Unspecified Accidental Fall 01/05/2012 REYNALDO VIEIRA APRN 780.39 OTHER CONVULSIONS 01/05/2012 REYNALDO VIEIRA APRN 780.93 Memory Loss 01/05/2012 REYNALDO VIEIRA APRN E888.9 Unspecified Accidental Fall 01/05/2012 REYNALDO VIEIRA APRN 780.39 OTHER CONVULSIONS 01/05/2012 REYNALDO VIEIRA APRN 780.93 Memory Loss 01/05/2012 REYNALDO VIEIRA APRN E888.9 Unspecified Accidental Fall 01/05/2012 REYNALDO VIEIRA APRN 780.39 OTHER CONVULSIONS 01/05/2012 REYNALDO VIEIRA APRN 780.93 Memory Loss 01/05/2012 REYNALDO VIEIRA APRN E888.9 Unspecified Accidental Fall 01/05/2012 SABIHA MAST MD 780.39 OTHER CONVULSIONS 01/05/2012 SABIHA MAST MD 780.93 Memory Loss 01/05/2012 SABIHA MAST MD E888.9 Unspecified Accidental Fall 01/05/2012 ARGUETA DO, KIKA K 780.39 OTHER CONVULSIONS 01/05/2012 ARGUETA DO, KIKA K 780.93 Memory Loss 01/05/2012 ARGUETA DO, KIKA K E888.9 Unspecified Accidental Fall 01/05/2012 MARLENE CABRERA APRN 780.39 OTHER CONVULSIONS 01/05/2012 MARLENE CABRERA APRN 780.93 Memory Loss 01/05/2012 MARLENE CABRERA APRN E888.9 Unspecified Accidental Fall 01/05/2012 MARLENE CABRERA APRN 780.39 OTHER CONVULSIONS 01/05/2012 MARLENE CABRERA APRN 780.93 Memory Loss 01/05/2012 MARLENE CABRERA APRN E888.9 Unspecified Accidental Fall 01/05/2012 [facility] R 780.39 OTHER CONVULSIONS 01/05/2012 [facility], ARASH R 780.93 Memory Loss 01/05/2012 [facility], ARASH R E888.9 Unspecified Accidental Fall 01/05/2012 BRODY ARAYA MD 780.39 OTHER CONVULSIONS 01/05/2012 BRODY ARAYA MD 780.93 Memory Loss 01/05/2012 BRODY ARAYA MD E888.9 Unspecified Accidental Fall 01/05/2012 REYNALDO VIEIRA APRN 780.39 OTHER CONVULSIONS 01/05/2012 REYNALDO VIEIRA APRN 780.93 Memory Loss 01/05/2012 REYNALDO VIEIRA APRN E888.9 Unspecified Accidental Fall 01/05/2012 [facility], ARASH R 780.39 OTHER CONVULSIONS 01/05/2012 [facility], ARASH R 780.93 Memory Loss 01/05/2012 [facility], ARASH R E888.9 Unspecified Accidental Fall 01/05/2012 REYNALDO VIEIRA APRN 780.39 OTHER CONVULSIONS 01/05/2012 REYNALDO VIEIRA APRN 780.93 Memory Loss 01/05/2012 REYNALDO VIEIRA APRN E888.9 Unspecified Accidental Fall 01/05/2012 ARGUETA DO, KIKA K 780.39 OTHER CONVULSIONS 01/05/2012 ARGUETA DO, KIKA K 780.93 Memory Loss 01/05/2012 ARGUETA DO, KIKA K E888.9 Unspecified Accidental Fall 01/05/2012 [facility], ARASH R 780.39 OTHER CONVULSIONS 01/05/2012 [facility], ARASH R 780.93 Memory Loss 01/05/2012 [facility], ARASH R E888.9 Unspecified Accidental Fall 01/05/2012 MARLENE CABRERA APRN 780.39 OTHER CONVULSIONS 01/05/2012 MARLENE CABRERA APRN 780.93 Memory Loss 01/05/2012 MARLENE CABRERA APRN E888.9 Unspecified Accidental Fall 01/05/2012 [facility], ARASH R 780.39 OTHER CONVULSIONS 01/05/2012 [facility], ARASH R 780.93 Memory Loss 01/05/2012 [facility], ARASH R E888.9 Unspecified Accidental Fall 01/05/2012 [facility] APRN 780.39 OTHER CONVULSIONS 01/05/2012 [facility] J[facility] APRN J 780.93 Memory Loss 01/05/2012 ITZ JUNIOR APRN E888.9 Unspecified Accidental Fall 01/05/2012 ITZ JUNIOR APRN 780.39 OTHER CONVULSIONS 01/05/2012 CLAUDE JUNIOR APRNINDA J 780.93 Memory Loss 01/05/2012 ROSA JUNIOR APRNA J E888.9 Unspecified Accidental Fall 01/05/2012 BRODY ARAYA MD 780.39 OTHER CONVULSIONS 01/05/2012 BRODY ARAYA MD 780.93 Memory Loss 01/05/2012 BRODY ARAYA MD E888.9 Unspecified Accidental Fall 01/05/2012 BRODY ARAYA MD 780.39 OTHER CONVULSIONS 01/05/2012 BRODY ARAYA MD 780.93 Memory Loss 01/05/2012 MARSHAL SAUCEDO, BRODY N E888.9 Unspecified Accidental Fall 01/05/2012 ITZ JUNIOR APRN J 780.39 OTHER CONVULSIONS 01/05/2012 SANDI LASSITER, ITZ J 780.93 Memory Loss 01/05/2012 SANDI LASSITER, ITZ J E888.9 Unspecified Accidental Fall 01/05/2012 ACOSTA DDS, BENJI 780.39 OTHER CONVULSIONS 01/05/2012 ACOSTA DDS, BENJI 780.93 Memory Loss 01/05/2012 ACOSTA DDS, BENJI E888.9 Unspecified Accidental Fall 01/05/2012 ACOSTA DDS, BENJI 780.39 OTHER CONVULSIONS 01/05/2012 AOCSTA DDS, BENJI 780.93 Memory Loss 01/05/2012 ACOSTA DDS, BENJI E888.9 Unspecified Accidental Fall 01/05/2012 SABIHA MAST MD 780.39 OTHER CONVULSIONS 01/05/2012 SABIHA MAST MD 780.93 Memory Loss 01/05/2012 SABIHA MAST MD E888.9 Unspecified Accidental Fall 01/05/2012 ARGUETA DO, KIKA K 780.39 OTHER CONVULSIONS 01/05/2012 ARGUETA DO, KIKA K 780.93 Memory Loss 01/05/2012 ARGUETA DO, KIKA K E888.9 Unspecified Accidental Fall 01/05/2012 ITZ JUNIOR APRN J 780.39 OTHER CONVULSIONS 01/05/2012 ROSA JUNIOR APRNA J 780.93 Memory Loss 01/05/2012 ROSA JUNIOR APRNA J E888.9 Unspecified Accidental Fall 01/05/2012 ROSA JUNIOR APRNA J 780.39 OTHER CONVULSIONS 01/05/2012 SANDI LASSITER, ITZ J 780.93 Memory Loss 01/05/2012 ROSA JUNIOR APRNA J E888.9 Unspecified Accidental Fall 01/05/2012 ROSA JUNIOR APRNA J 780.39 OTHER CONVULSIONS 01/05/2012 ROSA JUNIOR APRNA J 780.93 Memory Loss 01/05/2012 ROSA JUNIOR APRNA J E888.9 Unspecified Accidental Fall 01/05/2012 MASSIEL FERGUSON DO 780.39 OTHER CONVULSIONS 01/05/2012 MASSIEL FERGUSON DO F 780.93 MEMORY LOSS 01/05/2012 MASSIEL FERGUSON DO E888.9 UNSPECIFIED ACCIDENTAL FALL 01/05/2012 CLAUDE JUNIOR APRNINDA J 780.39 OTHER CONVULSIONS 01/05/2012 ROSA JUNIOR APRNA J 780.93 Memory Loss 01/05/2012 ITZ JUNIOR APRN J E888.9 Unspecified Accidental Fall 01/05/2012 KIKA ARGUETA DO K 780.39 OTHER CONVULSIONS 01/05/2012 KIKA ARGUETA DO K 780.93 Memory Loss 01/05/2012 KIKA ARGUETA DO K E888.9 Unspecified Accidental Fall 01/08/2012 Ot 599.0 01/08/2012 Ot 786.50 01/08/2012 Ot 788.0 01/08/2012 Ot 789.09 01/08/2012 Ot V13.01 02/09/2012 Ot 623.0 02/21/2012 296.32 MO DEPRESSIVE RECURRENT MODERATE 02/21/2012 300.02 AN GEN ANXIETY 02/21/2012 REYNALDO VIEIRA APRN 296.32 MO DEPRESSIVE RECURRENT MODERATE 02/21/2012 REYNALDO VIEIRA APRN 300.02 AN GEN ANXIETY 02/21/2012 296.32 MO DEPRESSIVE RECURRENT MODERATE 02/21/2012 300.02 AN GEN ANXIETY 02/21/2012 KIKA ARGUETA DO 296.32 MO DEPRESSIVE RECURRENT MODERATE 02/21/2012 KIKA ARGUETA DO 300.02 AN GEN ANXIETY 02/21/2012 296.32 MO DEPRESSIVE RECURRENT MODERATE 02/21/2012 300.02 AN GEN [facility]XIETY 02/21/2012 [facility]URRENT [facility] 02/21/2012 [facility] 300.[facility] AN GEN ANXIETY 02/21/2012 296.32 MO DEPRESSIVE RECURRENT MODERATE 02/21/2012 300.02 AN GEN ANXIETY 02/21/2012 [facility] 296.[facility] DEPRESSIVE RECURRENT MODERATE 02/21/2012 [facility] AN GEN ANXIETY 02/21/2012 MARLENE CABRERA APRN 296.32 MO DEPRESSIVE RECURRENT MODERATE 02/21/2012 MARLENE CABRERA APRN 300.02 AN GEN ANXIETY 02/21/2012 296.32 MO DEPRESSIVE RECURRENT MODERATE 02/21/2012 300.02 AN GEN ANXIETY 02/21/2012 296.32 MO DEPRESSIVE RECURRENT MODERATE 02/21/2012 300.02 AN GEN ANXIETY 02/21/2012 296.32 MO DEPRESSIVE RECURRENT MODERATE 02/21/2012 300.02 AN GEN ANXIETY 02/21/2012 296.32 MO DEPRESSIVE RECURRENT MODERATE 02/21/2012 300.02 AN GEN ANXIETY 02/21/2012 296.32 MO DEPRESSIVE RECURRENT MODERATE 02/21/2012 300.02 AN GEN ANXIETY 02/21/2012 296.32 MO DEPRESSIVE RECURRENT MODERATE 02/21/2012 300.02 AN GEN ANXIETY 02/21/2012 296.32 MO DEPRESSIVE RECURRENT MODERATE 02/21/2012 300.02 AN GEN ANXIETY 02/21/2012 296.32 MO DEPRESSIVE RECURRENT MODERATE 02/21/2012 300.02 AN GEN ANXIETY 02/21/2012 296.32 MO DEPRESSIVE RECURRENT MODERATE 02/21/2012 300.02 AN GEN ANXIETY 02/21/2012 296.32 MO DEPRESSIVE RECURRENT MODERATE 02/21/2012 300.02 AN GEN ANXIETY 02/21/2012 296.32 MO DEPRESSIVE RECURRENT MODERATE 02/21/2012 300.02 AN GEN ANXIETY 02/21/2012 296.32 MO DEPRESSIVE RECURRENT MODERATE 02/21/2012 300.02 AN GEN ANXIETY 02/21/2012 296.32 MO DEPRESSIVE RECURRENT MODERATE 02/21/2012 300.02 AN GEN ANXIETY 02/21/2012 REYNALDO VIEIRA APRN 296.32 MO DEPRESSIVE RECURRENT MODERATE 02/21/2012 REYNALDO VIEIRA APRN 300.02 AN GEN ANXIETY 02/21/2012 REYNALDO VIEIRA APRN 296.32 MO DEPRESSIVE RECURRENT MODERATE 02/21/2012 REYNALDO VIEIRA APRN 300.02 AN GEN ANXIETY 02/21/2012 REYNALDO VIEIRA APRN 296.32 MO DEPRESSIVE RECURRENT MODERATE 02/21/2012 REYNALDO VIEIRA APRN 300.02 AN GEN ANXIETY 02/21/2012 SABIHA MAST MD 296.32 MO DEPRESSIVE RECURRENT MODERATE 02/21/2012 SABIHA MAST MD 300.02 AN GEN ANXIETY 02/21/2012 KIKA ARGUETA DO 296.32 MO DEPRESSIVE RECURRENT MODERATE 02/21/2012 KIKA ARGUETA DO 300.02 AN GEN ANXIETY 02/21/2012 MARLENE CABRERA APRN 296.32 MO DEPRESSIVE RECURRENT MODERATE 02/21/2012 MARLENE CABRERA APRN 300.02 AN GEN ANXIETY 02/21/2012 MARLENE CABRERA APRN 296.32 MO DEPRESSIVE RECURRENT MODERATE 02/21/2012 MARLENE CABRERA APRN 300.02 AN GEN ANXIETY 02/21/2012 [facility] R 296.32 MO DEPRESSIVE RECURRENT MODERATE 02/21/2012 [facility] R 300.02 AN GEN ANXIETY 02/21/2012 BRODY ARAYA MD 296.32 MO DEPRESSIVE RECURRENT MODERATE 02/21/2012 BRODY ARAYA MD 300.02 AN GEN ANXIETY 02/21/2012 REYNALDO VIEIRA APRN T 296.32 MO DEPRESSIVE RECURRENT MODERATE 02/21/2012 REYNALDO VIEIRA APRN 300.02 AN GEN ANXIETY 02/21/2012 [facility] R 296.32 MO DEPRESSIVE RECURRENT MODERATE 02/21/2012 [facility] R 300.02 AN GEN ANXIETY 02/21/2012 REYNALDO VIEIRA APRN T 296.32 MO DEPRESSIVE RECURRENT MODERATE 02/21/2012 REYNALDO VIEIRA APRN T 300.02 AN GEN ANXIETY 02/21/2012 ARGUETA DO KIKA K 296.32 MO DEPRESSIVE RECURRENT MODERATE 02/21/2012 ARGUETA DO, KIKA K 300.02 AN GEN ANXIETY 02/21/2012 [facility] R 296.32 MO DEPRESSIVE RECURRENT MODERATE 02/21/2012 [facility] R 300.02 AN GEN ANXIETY 02/21/2012 MARLENE CABRERA APRN 296.32 MO DEPRESSIVE RECURRENT MODERATE 02/21/2012 MARLENE CABRERA APRN 300.02 AN GEN ANXIETY 02/21/2012 [facility] R 296.32 MO DEPRESSIVE RECURRENT MODERATE 02/21/2012 [facility] R 300.02 AN GEN ANXIETY 02/21/2012 ITZ JUNIOR APRN J 296.32 MO DEPRESSIVE RECURRENT MODERATE 02/21/2012 ITZ JUNIOR APRN 300.02 AN GEN ANXIETY 02/21/2012 ITZ JUNIOR APRN J 296.32 MO DEPRESSIVE RECURRENT MODERATE 02/21/2012 ITZ JUNIOR APRN J 300.02 AN GEN ANXIETY 02/21/2012 BRODY ARAYA MD 296.32 MO DEPRESSIVE RECURRENT MODERATE 02/21/2012 BRODY ARAYA MD 300.02 AN GEN ANXIETY 02/21/2012 BRODY ARAYA MD 296.32 MO DEPRESSIVE RECURRENT MODERATE 02/21/2012 BRODY ARAYA MD N 300.02 AN GEN ANXIETY 02/21/2012 ITZ JUNIOR APRN 296.32 MO DEPRESSIVE RECURRENT MODERATE 02/21/2012 ITZ JUNIOR APRN J 300.02 AN GEN ANXIETY 02/21/2012 ACOSTA DDS, BENJI 296.32 MO DEPRESSIVE RECURRENT MODERATE 02/21/2012 ACOSTA DDS, BENJI 300.02 AN GEN ANXIETY 02/21/2012 ACOSTA DDS, BENJI 296.32 MO DEPRESSIVE RECURRENT MODERATE 02/21/2012 ACOSTA DDS, BENJI 300.02 AN GEN ANXIETY 02/21/2012 SABIHA MAST MD 296.32 MO DEPRESSIVE RECURRENT MODERATE 02/21/2012 SABIHA MAST MD 300.02 AN GEN ANXIETY 02/21/2012 KIKA ARGUETA DO 296.32 MO DEPRESSIVE RECURRENT MODERATE 02/21/2012 KIKA ARGUETA DO 300.02 AN GEN ANXIETY 02/21/2012 ITZ JUNIOR APRN 296.32 MO DEPRESSIVE RECURRENT MODERATE 02/21/2012 ITZ JUNIOR APRN 300.02 AN GEN ANXIETY 02/21/2012 ITZ JUNIOR APRN 296.32 MO DEPRESSIVE RECURRENT MODERATE 02/21/2012 ITZ JUNIOR APRN 300.02 AN GEN ANXIETY 02/21/2012 ITZ JUNIOR APRN 296.32 MO DEPRESSIVE RECURRENT MODERATE 02/21/2012 ITZ JUNIOR APRN 300.02 AN GEN ANXIETY 02/21/2012 MASSIEL FERGUSON DO 296.32 MO DEPRESSIVE RECURRENT MODERATE 02/21/2012 MASSIEL FERGUSON DO 300.02 AN GEN ANXIETY 02/21/2012 ITZ JUNIOR APRN 296.32 MO DEPRESSIVE RECURRENT MODERATE 02/21/2012 ITZ JUNIOR APRN 300.02 AN GEN ANXIETY 02/21/2012 KIKA ARGUETA DO 296.32 MO DEPRESSIVE RECURRENT MODERATE 02/21/2012 KIKA ARGUETA DO 300.02 AN GEN ANXIETY 03/09/2012 Ot 535.40 03/09/2012 Ot 564.00 03/09/2012 Ot 785.6 03/09/2012 Ot 787.91 03/09/2012 Ot 787.99 03/09/2012 Ot V45.89 04/30/2012 309.81 AN PTSD 04/30/2012 REYNALDO VIEIRA APRN 309.81 AN PTSD 04/30/2012 309.81 AN PTSD 04/30/2012 KIKA ARGUETA DO K 309.81 AN PTSD 04/30/2012 309.81 AN PTSD 04/30/2012 [facility] R 309.81 AN PTSD 04/30/2012 309.81 AN PTSD 04/30/2012 [facility] R 309.81 AN PTSD 04/30/2012 MARLENE CABRERA APRN 309.81 AN PTSD 04/30/2012 309.81 AN PTSD 04/30/2012 309.81 AN PTSD 04/30/2012 309.81 AN PTSD 04/30/2012 309.81 AN PTSD 04/30/2012 309.81 AN PTSD 04/30/2012 309.81 AN PTSD 04/30/2012 309.81 AN PTSD 04/30/2012 309.81 AN PTSD 04/30/2012 309.81 AN PTSD 04/30/2012 309.81 AN PTSD 04/30/2012 309.81 AN PTSD 04/30/2012 309.81 AN PTSD 04/30/2012 309.81 AN PTSD 04/30/2012 REYNALDO VIEIRA APRN 309.81 AN PTSD 04/30/2012 REYNALDO VIEIRA APRN 309.81 AN PTSD 04/30/2012 REYNALDO VIEIRA APRN 309.81 AN PTSD 04/30/2012 SABIHA MAST MD 309.81 AN PTSD 04/30/2012 KIKA ARGUETA DO 309.81 AN PTSD 04/30/2012 MARLENE CABRERA APRN 309.81 AN PTSD 04/30/2012 MARLENE CABRERA APRN 309.81 AN PTSD 04/30/2012 [facility] R 309.81 AN PTSD 04/30/2012 MARSHAL SAUCEDO, BRODY Linda 309.81 AN PTSD 04/30/2012 REYNALDO VIEIRA APRN 309.81 AN PTSD 04/30/2012 [facility] R 309.81 AN PTSD 04/30/2012 REYNALDO VIEIRA APRN 309.81 AN PTSD 04/30/2012 KIKA ARGUETA DO 309.81 AN PTSD 04/30/2012 [facility] R 309.81 AN PTSD 04/30/2012 MARLENE CABRERA APRN 309.81 AN PTSD 04/30/2012 [facility] R 309.81 AN PTSD 04/30/2012 ROSA JUNIOR APRNA J 309.81 AN PTSD 04/30/2012 CLAUDE JUNIOR APRNINDA J 309.81 AN PTSD 04/30/2012 BRODY ARAYA MD 309.81 AN PTSD 04/30/2012 BRODY ARAYA MD 309.81 AN PTSD 04/30/2012 ASNDI LASSITER ITZ J 309.81 AN PTSD 04/30/2012 BENJI ACOSTA DDS 309.81 AN PTSD 04/30/2012 KARLA CARDOZO, BENJI 309.81 AN PTSD 04/30/2012 SABIHA MAST MD 309.81 AN PTSD 04/30/2012 KIKA ARGUETA DO 309.81 AN PTSD 04/30/2012 ROSA JUNIOR APRNA J 309.81 AN PTSD 04/30/2012 ROSA JUNIOR APRNA J 309.81 AN PTSD 04/30/2012 ROSA JUNIOR APRNA J 309.81 AN PTSD 04/30/2012 MASSIEL FERGUSON DO 309.81 AN PTSD 04/30/2012 ROSA JUNIOR APRNA J 309.81 AN PTSD 04/30/2012 KIKA ARGUETA DO 309.81 AN PTSD 05/21/2012 REYNALDO VIEIRA APRN 357.9 NEUROPATHY UNSP 05/21/2012 357.9 NEUROPATHY UNSP 05/21/2012 KIKA ARGUETA DO 357.9 NEUROPATHY UNSP 05/21/2012 357.9 NEUROPATHY UNSP 05/21/2012 [facility] R 357.9 NEUROPATHY UNSP 05/21/2012 357.9 NEUROPATHY UNSP 05/21/2012 [facility] Saucedo 357.9 NEUROPATHY UNSP 05/21/2012 MARLENE CABRERA APRN 357.9 NEUROPATHY UNSP 05/21/2012 357.9 NEUROPATHY UNSP 05/21/2012 357.9 NEUROPATHY UNSP 05/21/2012 357.9 NEUROPATHY UNSP 05/21/2012 357.9 NEUROPATHY UNSP 05/21/2012 357.9 NEUROPATHY UNSP 05/21/2012 357.9 NEUROPATHY UNSP 05/21/2012 357.9 NEUROPATHY UNSP 05/21/2012 357.9 NEUROPATHY UNSP 05/21/2012 357.9 NEUROPATHY UNSP 05/21/2012 357.9 NEUROPATHY UNSP 05/21/2012 357.9 NEUROPATHY UNSP 05/21/2012 357.9 NEUROPATHY UNSP 05/21/2012 357.9 NEUROPATHY UNSP 05/21/2012 REYNALDO VIEIRA APRN 357.9 NEUROPATHY UNSP 05/21/2012 REYNALDO VIEIRA APRN 357.9 NEUROPATHY UNSP 05/21/2012 REYNALDO VIEIRA APRN 357.9 NEUROPATHY UNSP 05/21/2012 SABIHA MAST MD 357.9 NEUROPATHY UNSP 05/21/2012 KIKA ARGUETA DO 357.9 NEUROPATHY UNSP 05/21/2012 MARLENE CABRERA APRN 357.9 NEUROPATHY UNSP 05/21/2012 MARLENE CABRERA APRN 357.9 NEUROPATHY UNSP 05/21/2012 [facility] R 357.9 NEUROPATHY UNSP 05/21/2012 BRODY ARAYA MD 357.9 NEUROPATHY UNSP 05/21/2012 REYNALDO VIEIRA APRN 357.9 NEUROPATHY UNSP 05/21/2012 [facility] R 357.9 NEUROPATHY UNSP 05/21/2012 REYNALDO VIEIRA APRN 357.9 NEUROPATHY UNSP 05/21/2012 KIKA ARGUETA DO 357.9 NEUROPATHY UNSP 05/21/2012 [facility] R 357.9 NEUROPATHY UNSP 05/21/2012 MARLENE CABRERA APRN 357.9 NEUROPATHY UNSP 05/21/2012 [facility] R 357.9 NEUROPATHY UNSP 05/21/2012 ITZ JUNIOR APRN 357.9 NEUROPATHY UNSP 05/21/2012 ITZ JUNIOR APRN 357.9 NEUROPATHY UNSP 05/21/2012 BRODY ARAYA MD 357.9 NEUROPATHY UNSP 05/21/2012 BRODY ARAYA MD 357.9 NEUROPATHY UNSP 05/21/2012 ITZ JUNIOR APRN 357.9 NEUROPATHY UNSP 05/21/2012 BENJI ACOSTA DDS 357.9 NEUROPATHY UNSP 05/21/2012 BENJI ACOSTA DDS 357.9 NEUROPATHY UNSP 05/21/2012 KEZIA SAUCEDO, SABIHA 357.9 NEUROPATHY UNSP 05/21/2012 KIKA ARGUETA DO 357.9 NEUROPATHY UNSP 05/21/2012 ITZ JUNIOR APRN J 357.9 NEUROPATHY UNSP 05/21/2012 SANDI LASSITER, ITZ J 357.9 NEUROPATHY UNSP 05/21/2012 SANDI LASSITER, ITZ J 357.9 NEUROPATHY UNSP 05/21/2012 ROSA JUNIOR APRNA J 357.9 NEUROPATHY UNSP 05/21/2012 KIKA ARGUETA DO 357.9 NEUROPATHY UNSP 07/07/2012 KIKA ARGUETA DO 611.71 BREAST PAIN 07/07/2012 KIKA ARGUETA DO 611.72 BREAST LUMP OR MASS 07/07/2012 KIKA ARGUETA DO V73.81 HPV SCREENING 07/07/2012 KIKA ARGUETA DO V76.10 BREAST CANCER SCREENING 07/07/2012 KIKA ARGUETA DO V76.47 VAGINAL PAP SMEAR SCREENING 07/07/2012 611.71 BREAST PAIN 07/07/2012 611.72 BREAST LUMP OR MASS 07/07/2012 V73.81 HPV SCREENING 07/07/2012 V76.10 BREAST CANCER SCREENING 07/07/2012 V76.47 VAGINAL PAP SMEAR SCREENING 07/07/2012 [facility] 611.71 [facility] 07/07/2012 [facility] R 611.72 BREAST LUMP OR MASS 07/07/2012 [facility] V73.81 HPV SCREENING 07/07/2012 [facility] R V76.10 BREAST CANCER SCREENING 07/07/2012 [facility] R V76.47 VAGINAL PAP SMEAR SCREENING 07/07/2012 611.71 BREAST PAIN 07/07/2012 611.72 BREAST LUMP OR MASS 07/07/2012 V73.81 HPV SCREENING 07/07/2012 V76.10 BREAST CANCER SCREENING 07/07/2012 V76.47 VAGINAL PAP SMEAR SCREENING 07/07/2012 [facility] 611.71 [facility] 07/07/2012 [facility] 611.72 BREAST LUMP OR MASS 07/07/2012 [facility] R V73.81 HPV SCREENING 07/07/2012 [facility] R V76.10 BREAST CANCER SCREENING 07/07/2012 [facility] R V76.47 VAGINAL PAP SMEAR SCREENING 07/07/2012 MARLENE CABRERA APRN 611.71 BREAST PAIN 07/07/2012 MARLENE CABRERA APRN 611.72 BREAST LUMP OR MASS 07/07/2012 MARLENE CABRERA APRN V73.81 HPV SCREENING 07/07/2012 MRALENE CABRERA APRN V76.10 BREAST CANCER SCREENING 07/07/2012 MARLENE CABRERA APRN V76.47 VAGINAL PAP SMEAR SCREENING 07/07/2012 611.71 BREAST PAIN 07/07/2012 611.72 BREAST LUMP OR MASS 07/07/2012 V73.81 HPV SCREENING 07/07/2012 V76.10 BREAST CANCER SCREENING 07/07/2012 V76.47 VAGINAL PAP SMEAR SCREENING 07/07/2012 611.71 BREAST PAIN 07/07/2012 611.72 BREAST LUMP OR MASS 07/07/2012 V73.81 HPV SCREENING 07/07/2012 V76.10 BREAST CANCER SCREENING 07/07/2012 V76.47 VAGINAL PAP SMEAR SCREENING 07/07/2012 611.71 BREAST PAIN 07/07/2012 611.72 BREAST LUMP OR MASS 07/07/2012 V73.81 HPV SCREENING 07/07/2012 V76.10 BREAST CANCER SCREENING 07/07/2012 V76.47 VAGINAL PAP SMEAR SCREENING 07/07/2012 611.71 BREAST PAIN 07/07/2012 611.72 BREAST LUMP OR MASS 07/07/2012 V73.81 HPV SCREENING 07/07/2012 V76.10 BREAST CANCER SCREENING 07/07/2012 V76.47 VAGINAL PAP SMEAR SCREENING 07/07/2012 611.71 BREAST PAIN 07/07/2012 611.72 BREAST LUMP OR MASS 07/07/2012 V73.81 HPV SCREENING 07/07/2012 V76.10 BREAST CANCER SCREENING 07/07/2012 V76.47 VAGINAL PAP SMEAR SCREENING 07/07/2012 611.71 BREAST PAIN 07/07/2012 611.72 BREAST LUMP OR MASS 07/07/2012 V73.81 HPV SCREENING 07/07/2012 V76.10 BREAST CANCER SCREENING 07/07/2012 V76.47 VAGINAL PAP SMEAR SCREENING 07/07/2012 611.71 BREAST PAIN 07/07/2012 611.72 BREAST LUMP OR MASS 07/07/2012 V73.81 HPV SCREENING 07/07/2012 V76.10 BREAST CANCER SCREENING 07/07/2012 V76.47 VAGINAL PAP SMEAR SCREENING 07/07/2012 611.71 BREAST PAIN 07/07/2012 611.72 BREAST LUMP OR MASS 07/07/2012 V73.81 HPV SCREENING 07/07/2012 V76.10 BREAST CANCER SCREENING 07/07/2012 V76.47 VAGINAL PAP SMEAR SCREENING 07/07/2012 611.71 BREAST PAIN 07/07/2012 611.72 BREAST LUMP OR MASS 07/07/2012 V73.81 HPV SCREENING 07/07/2012 V76.10 BREAST CANCER SCREENING 07/07/2012 V76.47 VAGINAL PAP SMEAR SCREENING 07/07/2012 611.71 BREAST PAIN 07/07/2012 611.72 BREAST LUMP OR MASS 07/07/2012 V73.81 HPV SCREENING 07/07/2012 V76.10 BREAST CANCER SCREENING 07/07/2012 V76.47 VAGINAL PAP SMEAR SCREENING 07/07/2012 611.71 BREAST PAIN 07/07/2012 611.72 BREAST LUMP OR MASS 07/07/2012 V73.81 HPV SCREENING 07/07/2012 V76.10 BREAST CANCER SCREENING 07/07/2012 V76.47 VAGINAL PAP SMEAR SCREENING 07/07/2012 611.71 BREAST PAIN 07/07/2012 611.72 BREAST LUMP OR MASS 07/07/2012 V73.81 HPV SCREENING 07/07/2012 V76.10 BREAST CANCER SCREENING 07/07/2012 V76.47 VAGINAL PAP SMEAR SCREENING 07/07/2012 611.71 BREAST PAIN 07/07/2012 611.72 BREAST LUMP OR MASS 07/07/2012 V73.81 HPV SCREENING 07/07/2012 V76.10 BREAST CANCER SCREENING 07/07/2012 V76.47 VAGINAL PAP SMEAR SCREENING 07/07/2012 REYNALDO VIEIRA APRN 611.71 BREAST PAIN 07/07/2012 REYNALDO VIEIRA APRN 611.72 BREAST LUMP OR MASS 07/07/2012 REYNALDO VIEIRA APRN V73.81 HPV SCREENING 07/07/2012 DARIEL GUN EXAMINER, REYNALDO T V76.10 BREAST CANCER SCREENING 07/07/2012 REYNALDO VIEIRA APRN T V76.47 VAGINAL PAP SMEAR SCREENING 07/07/2012 REYNALDO VIEIRA APRN T 611.71 BREAST PAIN 07/07/2012 REYNALDO VIEIRA APRN T 611.72 BREAST LUMP OR MASS 07/07/2012 REYNALDO VIEIRA APRN T V73.81 HPV SCREENING 07/07/2012 REYNALDO VIEIRA APRN T V76.10 BREAST CANCER SCREENING 07/07/2012 REYNALDO VIEIRA APRN T V76.47 VAGINAL PAP SMEAR SCREENING 07/07/2012 REYNALDO VIEIRA APRN T 611.71 BREAST PAIN 07/07/2012 REYNALDO VIEIRA APRN T 611.72 BREAST LUMP OR MASS 07/07/2012 REYNALDO VIEIRA APRN T V73.81 HPV SCREENING 07/07/2012 REYNALDO VIEIRA APRN T V76.10 BREAST CANCER SCREENING 07/07/2012 REYNALDO VIEIRA APRN V76.47 VAGINAL PAP SMEAR SCREENING 07/07/2012 SABIHA MAST MD 611.71 BREAST PAIN 07/07/2012 SABIHA MAST MD 611.72 BREAST LUMP OR MASS 07/07/2012 SABIHA MAST MD V73.81 HPV SCREENING 07/07/2012 SABIHA MAST MD V76.10 BREAST CANCER SCREENING 07/07/2012 SABIHA MAST MD V76.47 VAGINAL PAP SMEAR SCREENING 07/07/2012 KIKA ARGUETA DO 611.71 BREAST PAIN 07/07/2012 KIKA ARGUETA DO 611.72 BREAST LUMP OR MASS 07/07/2012 KIKA ARGUETA DO V73.81 HPV SCREENING 07/07/2012 KIKA ARGUETA DO K V76.10 BREAST CANCER SCREENING 07/07/2012 KIKA ARGUETA DO V76.47 VAGINAL PAP SMEAR SCREENING 07/07/2012 MARLENE CABRERA APRN 611.71 BREAST PAIN 07/07/2012 MARLENE CABRERA APRN 611.72 BREAST LUMP OR MASS 07/07/2012 MARLENE CABRERA APRN V73.81 HPV SCREENING 07/07/2012 MARLENE CABRERA APRN V76.10 BREAST CANCER SCREENING 07/07/2012 MARLENE CABRERA APRN V76.47 VAGINAL PAP SMEAR SCREENING 07/07/2012 MARLENE CABREAR APRN 611.71 BREAST PAIN 07/07/2012 MARLENE CABRERA APRN 611.72 BREAST LUMP OR MASS 07/07/2012 MARLENE CABRERA APRN V73.81 HPV SCREENING 07/07/2012 MARLENE CABRERA APRN V76.10 BREAST CANCER SCREENING 07/07/2012 MARLENE CABRERA APRN V76.47 VAGINAL PAP SMEAR SCREENING 07/07/2012 [facility] R 611.71 BREAST PAIN 07/07/2012 [facility] R 611.72 BREAST LUMP OR MASS 07/07/2012 [facility] R V73.81 HPV SCREENING 07/07/2012 [facility] R V76.10 BREAST CANCER SCREENING 07/07/2012 [facility] R V76.47 VAGINAL PAP SMEAR SCREENING 07/07/2012 BRODY ARAYA MD 611.71 BREAST PAIN 07/07/2012 BRODY ARAYA MD 611.72 BREAST LUMP OR MASS 07/07/2012 BRODY ARAYA MD V73.81 HPV SCREENING 07/07/2012 BRODY ARAYA MD V76.10 BREAST CANCER SCREENING 07/07/2012 BRODY ARYAA MD V76.47 VAGINAL PAP SMEAR SCREENING 07/07/2012 REYNALDO VIEIRA APRN 611.71 BREAST PAIN 07/07/2012 REYNALDO VIEIRA APRN 611.72 BREAST LUMP OR MASS 07/07/2012 REYNALDO VIEIRA APRN V73.81 HPV SCREENING 07/07/2012 REYNALDO VIEIRA APRN T V76.10 BREAST CANCER SCREENING 07/07/2012 REYNALDO VIEIRA APRN T V76.47 VAGINAL PAP SMEAR SCREENING 07/07/2012 [facility] R 611.71 BREAST PAIN 07/07/2012 [facility] R 611.72 BREAST LUMP OR MASS 07/07/2012 [facility] R V73.81 HPV SCREENING 07/07/2012 [facility] R V76.10 BREAST CANCER SCREENING 07/07/2012 [facility] R V76.47 VAGINAL PAP SMEAR SCREENING 07/07/2012 REYNALDO VIEIRA APRN 611.71 BREAST PAIN 07/07/2012 REYNALDO VIEIRA APRN 611.72 BREAST LUMP OR MASS 07/07/2012 REYNALDO VIEIRA APRN V73.81 HPV SCREENING 07/07/2012 REYNALDO VIEIRA APRN V76.10 BREAST CANCER SCREENING 07/07/2012 REYNALDO VIEIRA APRN V76.47 VAGINAL PAP SMEAR SCREENING 07/07/2012 ARGUETA DO, KIKA K 611.71 BREAST PAIN 07/07/2012 ARGUETA DO, KIKA K 611.72 BREAST LUMP OR MASS 07/07/2012 ARGUETA DO, KIKA K V73.81 HPV SCREENING 07/07/2012 ARGUET[facility] DO, KIKA K V76.10 BREAST CANCER SCREENING 07/07/2012 ARGUETA DO, KIKA K V76.47 VAGINAL PAP SMEAR SCREENING 07/07/2012 [facility] R 611.71 BREAST PAIN 07/07/2012 [facility] R 611.72 BREAST LUMP OR MASS 07/07/2012 [facility] R V73.81 HPV SCREENING 07/07/2012 [facility] R V76.10 BREAST CANCER SCREENING 07/07/2012 [facility] R V76.47 VAGINAL PAP SMEAR SCREENING 07/07/2012 MARLENE CABRERA APRN 611.71 BREAST PAIN 07/07/2012 MARLENE CABRERA APRN 611.72 BREAST LUMP OR MASS 07/07/2012 MARLENE CABRERA APRN V73.81 HPV SCREENING 07/07/2012 MARLENE CABRERA APRN V76.10 BREAST CANCER SCREENING 07/07/2012 MARLENE CABRERA APRN V76.47 VAGINAL PAP SMEAR SCREENING 07/07/2012 [facility] R 611.71 BREAST PAIN 07/07/2012 [facility] R 611.72 BREAST LUMP OR MASS 07/07/2012 [facility] R V73.81 HPV SCREENING 07/07/2012 [facility] R V76.10 BREAST CANCER SCREENING 07/07/2012 [facility] R V76.47 VAGINAL PAP SMEAR SCREENING 07/07/2012 SANDI GUN EXAMINER, ITZ J 611.71 BREAST PAIN 07/07/2012 SANDI GUN EXAMINER, ITZ J 611.72 BREAST LUMP OR MASS 07/07/2012 SANDI GUN EXAMINER, ITZ J V73.81 HPV SCREENING 07/07/2012 SANDI GUN EXAMINER, ITZ J V76.10 BREAST CANCER SCREENING 07/07/2012 SANDI GUN EXAMINER, ITZ J V76.47 VAGINAL PAP SMEAR SCREENING 07/07/2012 SANDI GUN EXAMINER, ITZ J 611.71 BREAST PAIN 07/07/2012 SANDI GUN EXAMINER, ITZ J 611.72 BREAST LUMP OR MASS 07/07/2012 SANDI LASSITER, ITZ J V73.81 HPV SCREENING 07/07/2012 SANDI GUN EXAMINER, ITZ J V76.10 BREAST CANCER SCREENING 07/07/2012 SANDI LASSITER, ITZ J V76.47 VAGINAL PAP SMEAR SCREENING 07/07/2012 BRODY ARAYA MD N 611.71 BREAST PAIN 07/07/2012 BRODY ARAYA MD N 611.72 BREAST LUMP OR MASS 07/07/2012 BRODY ARAYA MD N V73.81 HPV SCREENING 07/07/2012 BRODY ARAYA MD V76.10 BREAST CANCER SCREENING 07/07/2012 BRODY ARAYA MD V76.47 VAGINAL PAP SMEAR SCREENING 07/07/2012 BRODY ARAYA MD N 611.71 BREAST PAIN 07/07/2012 BRODY ARAYA MD N 611.72 BREAST LUMP OR MASS 07/07/2012 BRODY ARAYA MD N V73.81 HPV SCREENING 07/07/2012 BRODY ARAYA MD N V76.10 BREAST CANCER SCREENING 07/07/2012 BRODY ARAYA MD V76.47 VAGINAL PAP SMEAR SCREENING 07/07/2012 SANDI LASSITER ITZ J 611.71 BREAST PAIN 07/07/2012 SANDI LASSITER ITZ J 611.72 BREAST LUMP OR MASS 07/07/2012 SANDI LASSITER, ITZ J V73.81 HPV SCREENING 07/07/2012 SANDI LASSITER ITZ J V76.10 BREAST CANCER SCREENING 07/07/2012 SANDI LASSITER, ITZ J V76.47 VAGINAL PAP SMEAR SCREENING 07/07/2012 KARLA CARDOZO, BENJI 611.71 BREAST PAIN 07/07/2012 [facility] DDS, BENJI 611.72 BREAST LUMP OR MASS 07/07/2012 [facility] DDS, BENJI V73.81 HPV SCREENING 07/07/2012 [facility] DDS, BENJI V76.10 BREAST CANCER SCREENING 07/07/2012 [facility] DDS, BENJI V76.47 VAGINAL PAP SMEAR SCREENING 07/07/2012 [facility] DDS, BENJI 611.71 BREAST PAIN 07/07/2012 [facility] D[facility], BENJI 611.72 BREAST LUMP OR MASS 07/07/2012 [facility] DDS, BENJI V73.81 HPV SCREENING 07/07/2012 [facility]STA DDS, BENJI V76.10 BREAST CANCER SCREENING 07/07/2012 [facility]STA DDS, BENJI V76.47 VAGINAL PAP SMEAR SCREENING 07/07/2012 SABIHA MAST MD 611.71 BREAST PAIN 07/07/2012 SABIHA MAST MD 611.72 BREAST LUMP OR MASS 07/07/2012 SABIHA MAST MD V73.81 HPV SCREENING 07/07/2012 SABIHA MAST MD V76.10 BREAST CANCER SCREENING 07/07/2012 SABIHA MAST MD V76.47 VAGINAL PAP SMEAR SCREENING 07/07/2012 BRO ARGUETA DOA K 611.71 BREAST PAIN 07/07/2012 BRO ARGUETA DOA K 611.72 BREAST LUMP OR MASS 07/07/2012 ELLIE DE LA TORRE KIKA K V73.81 HPV SCREENING 07/07/2012 ELLIE DE LA TORRE KIKA K V76.10 BREAST CANCER SCREENING 07/07/2012 ELLIE DE LA TORRE KIKA K V76.47 VAGINAL PAP SMEAR SCREENING 07/07/2012 ROSA JUNIOR APRNA J 611.71 BREAST PAIN 07/07/2012 ROSA JUNIOR APRNA J 611.72 BREAST LUMP OR MASS 07/07/2012 ROSA JUNIOR APRNA J V73.81 HPV SCREENING 07/07/2012 SANDI LASSITER ITZ J V76.10 BREAST CANCER SCREENING 07/07/2012 ROSA JUNIOR APRNA J V76.47 VAGINAL PAP SMEAR SCREENING 07/07/2012 ROSA UJNIOR APRNA J 611.71 BREAST PAIN 07/07/2012 SANDI GUN EXAMINER, ITZ J 611.72 BREAST LUMP OR MASS 07/07/2012 SANDI GUN EXAMINER, ITZ J V73.81 HPV SCREENING 07/07/2012 SANDI GUN EXAMINER, ITZ J V76.10 BREAST CANCER SCREENING 07/07/2012 SANDI GUN EXAMINER, ITZ J V76.47 VAGINAL PAP SMEAR SCREENING 07/07/2012 SANDI GUN EXAMINER, ITZ J 611.71 BREAST PAIN 07/07/2012 SANDI GUN EXAMINER, ITZ J 611.72 BREAST LUMP OR MASS 07/07/2012 SANDI GUN EXAMINER, ITZ J V73.81 HPV SCREENING 07/07/2012 SANDI GUN EXAMINER, ITZ J V76.10 BREAST CANCER SCREENING 07/07/2012 ROSA JUNIOR APRNA J V76.47 VAGINAL PAP SMEAR SCREENING 07/07/2012 SANDI LASSITER, ITZ J 611.71 BREAST PAIN 07/07/2012 SANDI LASSITER ITZ J 611.72 BREAST LUMP OR MASS 07/07/2012 ROSA JUNIOR APRNA J V73.81 HPV SCREENING 07/07/2012 SANDI LASSITER ITZ J V76.10 BREAST CANCER SCREENING 07/07/2012 SANDI LASSITER, ITZ J V76.47 VAGINAL PAP SMEAR SCREENING 07/07/2012 KIKA ARGUETA DO 611.71 BREAST PAIN 07/07/2012 KIKA ARGUETA DO 611.72 BREAST LUMP OR MASS 07/07/2012 KIKA ARGUETA DO V73.81 HPV SCREENING 07/07/2012 KIKA ARGUETA DO V76.10 BREAST CANCER SCREENING 07/07/2012 KIKA ARGUETA DO V76.47 VAGINAL PAP SMEAR SCREENING 09/16/2012 461.9 SINUSITIS ACUTE 09/16/2012 784.0 HEADACHE 09/16/2012 787.02 NAUSEA ALONE 09/16/2012 461.9 SINUSITIS ACUTE 09/16/2012 784.0 HEADACHE 09/16/2012 787.02 NAUSEA ALONE 09/16/2012 461.9 SINUSITIS ACUTE 09/16/2012 784.0 HEADACHE 09/16/2012 787.02 NAUSEA ALONE 09/16/2012 461.9 SINUSITIS ACUTE 09/16/2012 784.0 HEADACHE 09/16/2012 787.02 NAUSEA ALONE 09/16/2012 461.9 SINUSITIS ACUTE 09/16/2012 784.0 HEADACHE 09/16/2012 787.02 NAUSEA ALONE 09/16/2012 461.9 SINUSITIS ACUTE 09/16/2012 784.0 HEADACHE 09/16/2012 787.02 NAUSEA ALONE 09/16/2012 461.9 SINUSITIS ACUTE 09/16/2012 784.0 HEADACHE 09/16/2012 787.02 NAUSEA ALONE 09/16/2012 461.9 SINUSITIS ACUTE 09/16/2012 784.0 HEADACHE 09/16/2012 787.02 NAUSEA ALONE 09/16/2012 461.9 SINUSITIS ACUTE 09/16/2012 784.0 HEADACHE 09/16/2012 787.02 NAUSEA ALONE 09/16/2012 461.9 SINUSITIS ACUTE 09/16/2012 784.0 HEADACHE 09/16/2012 787.02 NAUSEA ALONE 09/16/2012 461.9 SINUSITIS ACUTE 09/16/2012 784.0 HEADACHE 09/16/2012 787.02 NAUSEA ALONE 09/16/2012 461.9 SINUSITIS ACUTE 09/16/2012 784.0 HEADACHE 09/16/2012 787.02 NAUSEA ALONE 09/16/2012 461.9 SINUSITIS ACUTE 09/16/2012 784.0 HEADACHE 09/16/2012 787.02 NAUSEA ALONE 09/16/2012 REYNALDO VIEIRA APRN 461.9 SINUSITIS ACUTE 09/16/2012 REYNALDO VIEIRA APRN 784.0 HEADACHE 09/16/2012 REYNALDO VIEIRA APRN 787.02 NAUSEA ALONE 09/16/2012 REYNALDO VIEIRA APRN 461.9 SINUSITIS ACUTE 09/16/2012 REYNALDO VIEIRA APRN T 784.0 HEADACHE 09/16/2012 REYNALDO VIEIRA APRN 787.02 NAUSEA ALONE 09/16/2012 REYNALDO VIEIRA APRN 461.9 SINUSITIS ACUTE 09/16/2012 REYNALDO VIEIRA APRN T 784.0 HEADACHE 09/16/2012 REYNALDO VIEIRA APRN 787.02 NAUSEA ALONE 09/16/2012 SABIHA MAST MD 461.9 SINUSITIS ACUTE 09/16/2012 SABIHA MAST MD 784.0 HEADACHE 09/16/2012 SABIHA MAST MD 787.02 NAUSEA ALONE 09/16/2012 ARGUETA DO, KIKA K 461.9 SINUSITIS ACUTE 09/16/2012 ARGUETA DO, KIKA K 784.0 HEADACHE 09/16/2012 ARGUETA DO, KIKA K 787.02 NAUSEA ALONE 09/16/2012 MARLENE CABRERA APRN 461.9 SINUSITIS ACUTE 09/16/2012 MARLENE CABRERA APRN 784.0 HEADACHE 09/16/2012 MARLENE CABRERA APRN 787.02 NAUSEA ALONE 09/16/2012 MARLENE CABRERA APRN 461.9 SINUSITIS ACUTE 09/16/2012 MARLENE CABRERA APRN 784.0 HEADACHE 09/16/2012 MARLENE CABRERA APRN 787.02 NAUSEA ALONE 09/16/2012 [facility] R 461.9 SINUSITIS ACUTE 09/16/2012 [facility] R 784.0 HEADACHE 09/16/2012 [facility] R 787.02 NAUSEA ALONE 09/16/2012 BRODY ARAYA MD 461.9 SINUSITIS ACUTE 09/16/2012 BRODY ARAYA MD 784.0 HEADACHE 09/16/2012 BRODY ARAYA MD 787.02 NAUSEA ALONE 09/16/2012 REYNALDO VIEIRA APRN 461.9 SINUSITIS ACUTE 09/16/2012 REYNALDO VIEIRA APRN 784.0 HEADACHE 09/16/2012 REYNALDO VIEIRA APRN 787.02 NAUSEA ALONE 09/16/2012 [facility]ASH R 461.9 SINUSITIS ACUTE 09/16/2012 [facility] R 784.0 HEADACHE 09/16/2012 [facility] R 787.02 NAUSEA ALONE 09/16/2012 REYNALDO VIEIRA APRN 461.9 SINUSITIS ACUTE 09/16/2012 REYNALDO VIEIRA APRN 784.0 HEADACHE 09/16/2012 REYNALDO VIEIRA APRN 787.02 NAUSEA ALONE 09/16/2012 ARGUETA DO, KIKA K 461.9 SINUSITIS ACUTE 09/16/2012 ARGUETA DO, KIKA K 784.0 HEADACHE 09/16/2012 ARGUETA DO, KIKA K 787.02 NAUSEA ALONE 09/16/2012 [facility] R 461.9 SINUSITIS ACUTE 09/16/2012 [facility] R 784.0 HEADACHE 09/16/2012 [facility] R 787.02 NAUSEA ALONE 09/16/2012 MARLENE CABRERA APRN 461.9 SINUSITIS ACUTE 09/16/2012 MARLENE CABRERA APRN 784.0 HEADACHE 09/16/2012 MARLENE CABRERA APRN 787.02 NAUSEA ALONE 09/16/2012 [facility] R 461.9 SINUSITIS ACUTE 09/16/2012 [facility] R 784.0 HEADACHE 09/16/2012 [facility] R 787.02 NAUSEA ALONE 09/16/2012 ITZ JUNIOR APRN 461.9 SINUSITIS ACUTE 09/16/2012 ITZ JUNIOR APRN 784.0 HEADACHE 09/16/2012 ITZ JUNIOR APRN 787.02 NAUSEA ALONE 09/16/2012 ITZ JUNIOR APRN 461.9 SINUSITIS ACUTE 09/16/2012 ROSA JUNIOR APRNA Merrick 784.0 HEADACHE 09/16/2012 ITZ JUNIOR APRN 787.02 NAUSEA ALONE 09/16/2012 BRODY ARAYA MD N 461.9 SINUSITIS ACUTE 09/16/2012 BRODY ARAYA MD N 784.0 HEADACHE 09/16/2012 BRODY ARAYA MD N 787.02 NAUSEA ALONE 09/16/2012 BRODY ARAYA MD N 461.9 SINUSITIS ACUTE 09/16/2012 BRODY ARAYA MD N 784.0 HEADACHE 09/16/2012 BRODY ARAYA MD N 787.02 NAUSEA ALONE 09/16/2012 ROSA JUNIOR APRNA Merrick 461.9 SINUSITIS ACUTE 09/16/2012 ROSA JUNIOR APRNA J 784.0 HEADACHE 09/16/2012 ITZ JUNIOR APRN 787.02 NAUSEA ALONE 09/16/2012 BENJI ACOSTA DDS 461.9 SINUSITIS ACUTE 09/16/2012 ACOSTA DDSBENJI 784.0 HEADACHE 09/16/2012 ACOSTA DDS, BENJI 787.02 NAUSEA ALONE 09/16/2012 ACOSTA DDS, BENJI 461.9 SINUSITIS ACUTE 09/16/2012 ACOTSA DDS, BENJI 784.0 HEADACHE 09/16/2012 ACOSTA DDS, BENJI 787.02 NAUSEA ALONE 09/16/2012 SABIHA MAST MD 461.9 SINUSITIS ACUTE 09/16/2012 SABIHA MAST MD 784.0 HEADACHE 09/16/2012 SABIHA MAST MD 787.02 NAUSEA ALONE 09/16/2012 ARGUETA DO KIKA K 461.9 SINUSITIS ACUTE 09/16/2012 ARGUETA DO KIKA K 784.0 HEADACHE 09/16/2012 ARGUETA DO KIKA K 787.02 NAUSEA ALONE 09/16/2012 SANDI LASSITER, ITZ J 461.9 SINUSITIS ACUTE 09/16/2012 SANDI MAIKOL, ITZ J 784.0 HEADACHE 09/16/2012 SANDI GUN EXAMINER, ITZ J 787.02 NAUSEA ALONE 09/16/2012 SANDI GUN EXAMINER, ITZ J 461.9 SINUSITIS ACUTE 09/16/2012 SANDI GUN EXAMINER, ITZ J 784.0 HEADACHE 09/16/2012 SANDI GUN EXAMINER, ITZ J 787.02 NAUSEA ALONE 09/16/2012 SANDI GUN EXAMINER, ITZ J 461.9 SINUSITIS ACUTE 09/16/2012 SANDI GUN EXAMINER, ITZ J 784.0 HEADACHE 09/16/2012 SANDI GUN EXAMINER, ITZ J 787.02 NAUSEA ALONE 09/16/2012 SANDI GUN EXAMINER, ITZ J 461.9 SINUSITIS ACUTE 09/16/2012 SANDI GUN EXAMINER, ITZ J 784.0 HEADACHE 09/16/2012 SANDI GUN EXAMINER, ITZ J 787.02 NAUSEA ALONE 09/16/2012 ARGUETA DO KIKA K 461.9 SINUSITIS ACUTE 09/16/2012 ARGUETA DO KIKA K 784.0 HEADACHE 09/16/2012 ARGUETA DO KIKA K 787.02 NAUSEA ALONE 09/22/2012 788.1 DYSURIA 09/22/2012 788.1 DYSURIA 09/22/2012 788.1 DYSURIA 09/22/2012 788.1 DYSURIA 09/22/2012 788.1 DYSURIA 09/22/2012 788.1 DYSURIA 09/22/2012 788.1 DYSURIA 09/22/2012 788.1 DYSURIA 09/22/2012 788.1 DYSURIA 09/22/2012 788.1 DYSURIA 09/22/2012 788.1 DYSURIA 09/22/2012 REYNALDO VIEIRA APRN 788.1 DYSURIA 09/22/2012 REYNALDO VIEIRA APRN 788.1 DYSURIA 09/22/2012 REYNALDO VIEIRA APRN 788.1 DYSURIA 09/22/2012 SABIHA MAST MD 788.1 DYSURIA 09/22/2012 ARGUETA KIKA DE LA TORRE 788.1 DYSURIA 09/22/2012 MARLENE CABRERA APRN 788.1 DYSURIA 09/22/2012 MARLENE CABRERA APRN 788.1 DYSURIA 09/22/2012 [facility] 788.1 DYSURIA 09/22/2012 BRODY ARAYA MD 788.1 DYSURIA 09/22/2012 REYNALDO VIEIRA APRN 788.1 DYSURIA 09/22/2012 [facility] R 788.1 DYSURIA 09/22/2012 REYNALDO VIEIRA APRN 788.1 DYSURIA 09/22/2012 ARGUETA KIKA DE LA TORRE 788.1 DYSURIA 09/22/2012 [facility] R 788.1 DYSURIA 09/22/2012 MARLENE CABRERA APRN 788.1 DYSURIA 09/22/2012 [facility] 788.1 DYSURIA 09/22/2012 ITZ JUNIOR APRN J 788.1 DYSURIA 09/22/2012 ITZ JUNIOR APRN J 788.1 DYSURIA 09/22/2012 BRODY ARAYA MD 788.1 DYSURIA 09/22/2012 BRODY ARAYA MD 788.1 DYSURIA 09/22/2012 ITZ JUNIOR APRN J 788.1 DYSURIA 09/22/2012 KARLA MCKEONS, BENJI 788.1 DYSURIA 09/22/2012 KARLA DDS, BENJI 788.1 DYSURIA 09/22/2012 KEZIA SAUCEDO, SABIHA 788.1 DYSURIA 09/22/2012 ARGUETA DO, KIKA K 788.1 DYSURIA 09/22/2012 SANDI LASSITER, ITZ J 788.1 DYSURIA 09/22/2012 SANDI LASSITER, ITZ J 788.1 DYSURIA 09/22/2012 SANDI LASSITER, ITZ J 788.1 DYSURIA 09/22/2012 SANDI LASSITER, ITZ J 788.1 DYSURIA 09/22/2012 ARGUETA DO, KIKA K 788.1 DYSURIA 11/15/2012 724.5 BACK PAIN, GENERAL 11/15/2012 724.5 BACK PAIN, GENERAL 11/15/2012 724.5 BACK PAIN, GENERAL 11/15/2012 724.5 BACK PAIN, GENERAL 11/15/2012 724.5 BACK PAIN, GENERAL 11/15/2012 REYNALDO VIEIRA APRN 724.5 BACK PAIN, GENERAL 11/15/2012 REYNALDO VIEIRA APRN 724.5 BACK PAIN, GENERAL 11/15/2012 REYNALDO VIEIRA APRN 724.5 BACK PAIN, GENERAL 11/15/2012 SABIHA MAST MD 724.5 BACK PAIN, GENERAL 11/15/2012 KIKA ARGUETA DO 724.5 BACK PAIN, GENERAL 11/15/2012 MARLENE CABRERA APRN 724.5 BACK PAIN, GENERAL 11/15/2012 MARLENE CABRERA APRN 724.5 BACK PAIN, GENERAL 11/15/2012 [facility] 724.5 BACK PAIN, GENERAL 11/15/2012 BRODY ARAYA MD 724.5 BACK PAIN, GENERAL 11/15/2012 REYNALDO VIEIRA APRN 724.5 BACK PAIN, GENERAL 11/15/2012 [facility] 724.5 BACK PAIN, GENERAL 11/15/2012 REYNALDO VIEIRA APRN 724.5 BACK PAIN, GENERAL 11/15/2012 KIKA ARGUETA DO 724.5 BACK PAIN, GENERAL 11/15/2012 [facility] 724.5 BACK PAIN, GENERAL 11/15/2012 MARLENE CABRERA APRN 724.5 BACK PAIN, GENERAL 11/15/2012 [facility] 724.5 BACK PAIN, GENERAL 11/15/2012 SANDI LASSITER, ITZ J 724.5 BACK PAIN, GENERAL 11/15/2012 SANDI LASSITER, ITZ J 724.5 BACK PAIN, GENERAL 11/15/2012 MARSHAL SAUCEDO, BRODY Linda 724.5 BACK PAIN, GENERAL 11/15/2012 MARSHAL SAUCEDO, BRODY Linda 724.5 BACK PAIN, GENERAL 11/15/2012 SANDI LASSITER, ITZ J 724.5 BACK PAIN, GENERAL 11/15/2012 ACOSTA DDS, BENJI 724.5 BACK PAIN, GENERAL 11/15/2012 ACOSTA DDS, BENJI 724.5 BACK PAIN, GENERAL 11/15/2012 SABIHA MAST MD 724.5 BACK PAIN, GENERAL 11/15/2012 KIKA ARGUETA DO 724.5 BACK PAIN, GENERAL 11/15/2012 SANDI LASSITER, ITZ J 724.5 BACK PAIN, GENERAL 11/15/2012 SANDI LASSITER, ITZ J 724.5 BACK PAIN, GENERAL 11/15/2012 SANDI LASSITER, ITZ J 724.5 BACK PAIN, GENERAL 11/15/2012 SANDI LASSITER, ITZ J 724.5 BACK PAIN, GENERAL 11/15/2012 KIKA ARGUETA DO K 724.5 BACK PAIN, GENERAL 12/25/2012 466.0 ACUTE BRONCHITIS 12/25/2012 466.0 ACUTE BRONCHITIS 12/25/2012 466.0 ACUTE BRONCHITIS 12/25/2012 REYNALDO VIEIRA APRN 466.0 ACUTE BRONCHITIS 12/25/2012 REYNALDO VIEIRA APRN 466.0 ACUTE BRONCHITIS 12/25/2012 REYNALDO VIEIRA APRN 466.0 ACUTE BRONCHITIS 12/25/2012 SABIHA MAST MD 466.0 ACUTE BRONCHITIS 12/25/2012 KIKA ARGUETA DO 466.0 ACUTE BRONCHITIS 12/25/2012 MARLENE CABRERA APRN 466.0 ACUTE BRONCHITIS 12/25/2012 MARLENE CABRERA APRN 466.0 ACUTE BRONCHITIS 12/25/2012 [facility] 466.0 ACUTE BRONCHITIS 12/25/2012 BRODY ARAYA MD 466.0 ACUTE BRONCHITIS 12/25/2012 REYNALDO VIEIRA APRN 466.0 ACUTE BRONCHITIS 12/25/2012 [facility] 466.0 ACUTE BRONCHITIS 12/25/2012 REYNALDO VIEIRA APRN 466.0 ACUTE BRONCHITIS 12/25/2012 KIKA ARGUETA DO K 466.0 ACUTE BRONCHITIS 12/25/2012 [facility] 466.0 ACUTE BRONCHITIS 12/25/2012 MARLENE CABRERA APRN 466.0 ACUTE BRONCHITIS 12/25/2012 [facility] 466.0 ACUTE BRONCHITIS 12/25/2012 SANDI LASSITER, ITZ J 466.0 ACUTE BRONCHITIS 12/25/2012 SANDI LASSITER, ITZ J 466.0 ACUTE BRONCHITIS 12/25/2012 MARSHAL SAUCEDO, BRODY N 466.0 ACUTE BRONCHITIS 12/25/2012 MARSHAL SAUCEDO, BRODY N 466.0 ACUTE BRONCHITIS 12/25/2012 SANDI LASSITER, ITZ J 466.0 ACUTE BRONCHITIS 12/25/2012 ACOSTA DDS, BENJI 466.0 ACUTE BRONCHITIS 12/25/2012 ACOSTA DDS, BENJI 466.0 ACUTE BRONCHITIS 12/25/2012 SABIHA MAST MD 466.0 ACUTE BRONCHITIS 12/25/2012 BRO ARGUETA DOA K 466.0 ACUTE BRONCHITIS 12/25/2012 SANDI LASSITER, ITZ J 466.0 ACUTE BRONCHITIS 12/25/2012 SANDI LASSITER, ITZ J 466.0 ACUTE BRONCHITIS 12/25/2012 SANDI LASSITER, ITZ J 466.0 ACUTE BRONCHITIS 12/25/2012 SANDI LASSITER, ITZ J 466.0 ACUTE BRONCHITIS 12/25/2012 BRO ARGUETA DOA K 466.0 ACUTE BRONCHITIS 01/03/2013 625.9 PELVIC PAIN 01/03/2013 625.9 PELVIC PAIN 01/03/2013 625.9 PELVIC PAIN 01/03/2013 REYNALDO VIEIRA APRN 625.9 PELVIC PAIN 01/03/2013 REYNALDO VIEIRA APRN 625.9 PELVIC PAIN 01/03/2013 REYNALDO VIEIRA APRN 625.9 PELVIC PAIN 01/03/2013 SABIHA MAST MD 625.9 PELVIC PAIN 01/03/2013 KIKA ARGUETA DO K 625.9 PELVIC PAIN 01/03/2013 MARLENE CABRERA APRN 625.9 PELVIC PAIN 01/03/2013 MARLENE CABRERA APRN 625.9 PELVIC PAIN 01/03/2013 [facility], ARASH R 625.9 PELVIC PAIN 01/03/2013 BRODY ARAYA MD 625.9 PELVIC PAIN 01/03/2013 REYNALDO VIEIRA APRN 625.9 PELVIC PAIN 01/03/2013 [facility], ARASH R 625.9 PELVIC PAIN 01/03/2013 REYNALDO VIEIRA APRN 625.9 PELVIC PAIN 01/03/2013 ARGUETA DO, KIKA K 625.9 PELVIC PAIN 01/03/2013 [facility], ARASH R 625.9 PELVIC PAIN 01/03/2013 MARLENE CABRERA APRN 625.9 PELVIC PAIN 01/03/2013 [facility]EN [facility], ARASH R 625.9 PELVIC PAIN 01/03/2013 SANDI LASSITER, ITZ J 625.9 PELVIC PAIN 01/03/2013 SANDI LASSITER, ITZ J 625.9 PELVIC PAIN 01/03/2013 BRODY ARAYA MD 625.9 PELVIC PAIN 01/03/2013 BRODY ARAYA MD 625.9 PELVIC PAIN 01/03/2013 SANDI LASSITER, ITZ J 625.9 PELVIC PAIN 01/03/2013 ACOSTA DDS, BENJI 625.9 PELVIC PAIN 01/03/2013 ACOSTA DDS, BENJI 625.9 PELVIC PAIN 01/03/2013 SABIHA MAST MD 625.9 PELVIC PAIN 01/03/2013 ARGUETA DO, KIKA K 625.9 PELVIC PAIN 01/03/2013 SANDI LASSITER, ITZ J 625.9 PELVIC PAIN 01/03/2013 SANDI LASSITER, ITZ J 625.9 PELVIC PAIN 01/03/2013 SANDI LYNNN, ITZ J 625.9 PELVIC PAIN 01/03/2013 SANDI LYNNN, ITZ J 625.9 PELVIC PAIN 01/03/2013 ARGUETA DO, KIKA K 625.9 PELVIC PAIN 01/04/2013 MAYRA QUINONES Ot 599.0 URIN TRACT INFECTION NOS 01/04/2013 MAYRA QUINONES Ot 616.10 VAGINITIS NOS 02/23/2013 REYNALDO VIEIRA APRN 726.71 ACHILLES BURSITIS OR TENDINITIS 02/23/2013 REYNALDO VIEIRA APRN 726.71 ACHILLES BURSITIS OR TENDINITIS 02/23/2013 REYNALDO VIEIRA APRN 726.71 ACHILLES BURSITIS OR TENDINITIS 02/23/2013 SABIHA MAST MD 726.71 ACHILLES BURSITIS OR TENDINITIS 02/23/2013 KIKA ARGUETA DO 726.71 ACHILLES BURSITIS OR TENDINITIS 02/23/2013 MARLENE CABRERA APRN 726.71 ACHILLES BURSITIS OR TENDINITIS 02/23/2013 MARLENE CABRERA APRN 726.71 ACHILLES BURSITIS OR TENDINITIS 02/23/2013 [facility] ACHILLES BURSITIS OR TENDINITIS 02/23/2013 BRODY ARAYA MD 726.71 ACHILLES BURSITIS OR TENDINITIS 02/23/2013 REYNALDO VIEIRA APRN 726.71 ACHILLES BURSITIS OR TENDINITIS 02/23/2013 [facility] 726.71 ACHILLES BURSITIS OR TENDINITIS 02/23/2013 REYNALDO VIEIRA APRN 726.71 ACHILLES BURSITIS OR TENDINITIS 02/23/2013 KIKA ARGUETA DO 726.71 ACHILLES BURSITIS OR TENDINITIS 02/23/2013 [facility] 726.71 ACHILLES BURSITIS OR TENDINITIS 02/23/2013 MARLENE CABRERA APRN 726.71 ACHILLES BURSITIS OR TENDINITIS 02/23/2013 [facility] 726.71 ACHILLES BURSITIS OR TENDINITIS 02/23/2013 ITZ JUNIOR APRN 726.71 ACHILLES BURSITIS OR TENDINITIS 02/23/2013 ITZ JUNIOR APRN 726.71 ACHILLES BURSITIS OR TENDINITIS 02/23/2013 BRODY ARAYA MD 726.71 ACHILLES BURSITIS OR TENDINITIS 02/23/2013 BRODY ARAYA MD 726.71 ACHILLES BURSITIS OR TENDINITIS 02/23/2013 ITZ JUNIOR APRN 726.71 ACHILLES BURSITIS OR TENDINITIS 02/23/2013 BENJI ACOSTA DDS 726.71 ACHILLES BURSITIS OR TENDINITIS 02/23/2013 BENJI ACOSTA DDS 726.71 ACHILLES BURSITIS OR TENDINITIS 02/23/2013 SABIHA MAST MD 726.71 ACHILLES BURSITIS OR TENDINITIS 02/23/2013 KIKA ARGUETA DO 726.71 ACHILLES BURSITIS OR TENDINITIS 02/23/2013 ITZ JUNIOR APRN 726.71 ACHILLES BURSITIS OR TENDINITIS 02/23/2013 ITZ JUNIOR APRN 726.71 ACHILLES BURSITIS OR TENDINITIS 02/23/2013 ITZ JUNIOR APRN 726.71 ACHILLES BURSITIS OR TENDINITIS 02/23/2013 ITZ JUNIOR APRN 726.71 ACHILLES BURSITIS OR TENDINITIS 02/23/2013 KIKA ARGUETA DO 726.71 ACHILLES BURSITIS OR TENDINITIS 02/28/2013 REYNALDO VIEIRA APRN V03.82 PPV23 (PNEUMOVAX) DX 02/28/2013 REYNALDO VIEIRA APRN V04.81 FLU SHOT 02/28/2013 REYNALDO VIEIRA APRN V03.82 PPV23 (PNEUMOVAX) DX 02/28/2013 REYNALDO VIEIRA APRN V04.81 FLU SHOT 02/28/2013 SABIHA MAST MD V03.82 PPV23 (PNEUMOVAX) DX 02/28/2013 SABIHA MAST MD V04.81 FLU SHOT 02/28/2013 KIKA ARGUETA DO V03.82 PPV23 (PNEUMOVAX) DX 02/28/2013 KIKA ARGUETA DO V04.81 FLU SHOT 02/28/2013 MARLENE CABRERA APRN V03.82 PPV23 (PNEUMOVAX) DX 02/28/2013 MARLENE CABRERA APRN V04.81 FLU SHOT 02/28/2013 MARLENE CABRERA APRN V03.82 PPV23 (PNEUMOVAX) DX 02/28/2013 MARLENE CABRERA APRN V04.81 FLU SHOT 02/28/2013 [facility] ([facility]UMOVAX[facility] DX 02/28/2013 [facility] 02/28/2013 BRODY ARAYA MD V03.82 PPV23 (PNEUMOVAX) DX 02/28/2013 BRODY ARAYA MD V04.81 FLU SHOT 02/28/2013 REYNALDO VIEIRA APRN V03.82 PPV23 (PNEUMOVAX) DX 02/28/2013 REYNALDO VIEIRA APRN V04.81 FLU SHOT 02/28/2013 [facility] R V03.82 PPV23 (PNEUMOVAX) DX 02/28/2013 [facility] R V04.81 FLU SHOT 02/28/2013 REYNALDO VIEIRA APRN V03.82 PPV23 (PNEUMOVAX) DX 02/28/2013 REYNALDO VIEIRA APRN V04.81 FLU SHOT 02/28/2013 ARGUETA DO, KIKA K V03.82 PPV23 (PNEUMOVAX) DX 02/28/2013 ARGUETA DO, KIKA K V04.81 FLU SHOT 02/28/2013 [facility] R V03.82 PPV23 (PNEUMOVAX) DX 02/28/2013 [facility] R V04.81 FLU SHOT 02/28/2013 MARLENE CABRERA APRN V03.82 PPV23 (PNEUMOVAX) DX 02/28/2013 MARLENE CABRERA APRN V04.81 FLU SHOT 02/28/2013 [facility] R V03.82 PPV23 (PNEUMOVAX) DX 02/28/2013 [facility] R V04.81 FLU SHOT 02/28/2013 ITZ JUNIOR APRN V03.82 PPV23 (PNEUMOVAX) DX 02/28/2013 ITZ JUNIOR APRN V04.81 FLU SHOT 02/28/2013 ITZ JUNIOR APRN V03.82 PPV23 (PNEUMOVAX) DX 02/28/2013 ITZ JUNIOR APRN V04.81 FLU SHOT 02/28/2013 BRODY ARAYA MD V03.82 PPV23 (PNEUMOVAX) DX 02/28/2013 BRODY ARAYA MD V04.81 FLU SHOT 02/28/2013 BRODY ARAYA MD V03.82 PPV23 (PNEUMOVAX) DX 02/28/2013 BRODY ARAYA MD V04.81 FLU SHOT 02/28/2013 ITZ JUNIOR APRN V03.82 PPV23 (PNEUMOVAX) DX 02/28/2013 ITZ JUNIOR APRN V04.81 FLU SHOT 02/28/2013 ACOSTA DDS, BENJI V03.82 PPV23 (PNEUMOVAX) DX 02/28/2013 ACOSTA DDS, BENJI V04.81 FLU SHOT 02/28/2013 ACOSTA DDS, BENJI V03.82 PPV23 (PNEUMOVAX) DX 02/28/2013 ACOSTA DDS, BENJI V04.81 FLU SHOT 02/28/2013 SABIHA MAST MD V03.82 PPV23 (PNEUMOVAX) DX 02/28/2013 SABIHA MAST MD V04.81 FLU SHOT 02/28/2013 KIKA ARGUETA DO V03.82 PPV23 (PNEUMOVAX) DX 02/28/2013 KIKA ARGUETA DO V04.81 FLU SHOT 02/28/2013 ITZ JUNIOR APRN V03.82 PPV23 (PNEUMOVAX) DX 02/28/2013 ITZ JUNIOR APRN V04.81 FLU SHOT 02/28/2013 ITZ JUNIOR APRN V03.82 PPV23 (PNEUMOVAX) DX 02/28/2013 ITZ JUNIOR APRN V04.81 FLU SHOT 02/28/2013 ITZ JUNIOR APRN V03.82 PPV23 (PNEUMOVAX) DX 02/28/2013 ITZ JUNIOR APRN V04.81 FLU SHOT 02/28/2013 ITZ JUNIOR APRN V03.82 PPV23 (PNEUMOVAX) DX 02/28/2013 ITZ JUNIOR APRN V04.81 FLU SHOT 02/28/2013 KIKA ARGUETA DO V03.82 PPV23 (PNEUMOVAX) DX 02/28/2013 KIKA ARGUETA DO V04.81 FLU SHOT 03/23/2013 SABIHA MAST MD 599.0 URINARY TRACT INFECTION 03/23/2013 KIKA ARGUETA DO 599.0 URINARY TRACT INFECTION 03/23/2013 MARLENE CABRERA APRN 599.0 URINARY TRACT INFECTION 03/23/2013 MARLENE CABRERA APRN 599.0 URINARY TRACT INFECTION 03/23/2013 [facility], ARASH R 599.0 URINARY TRACT INFECTION 03/23/2013 MARSHAL SAUCEDO, BRODY N 599.0 URINARY TRACT INFECTION 03/23/2013 REYNALDO VIEIRA APRN T 599.0 URINARY TRACT INFECTION 03/23/2013 [facility] R 599.0 URINARY TRACT INFECTION 03/23/2013 REYNALDO VIEIRA APRN T 599.0 URINARY TRACT INFECTION 03/23/2013 ARGUETA DO KIKA K 599.0 URINARY TRACT INFECTION 03/23/2013 [facility] R 599.0 URINARY TRACT INFECTION 03/23/2013 MARLENE CABRERA APRN 599.0 URINARY TRACT INFECTION 03/23/2013 [facility] R 599.0 URINARY TRACT INFECTION 03/23/2013 ROSA JUNIOR APRNA J 599.0 URINARY TRACT INFECTION 03/23/2013 SANDI LASSITER ITZ J 599.0 URINARY TRACT INFECTION 03/23/2013 BRODY ARAYA MD N 599.0 URINARY TRACT INFECTION 03/23/2013 BRODY ARAYA MD N 599.0 URINARY TRACT INFECTION 03/23/2013 SANDI LASSITER ITZ J 599.0 URINARY TRACT INFECTION 03/23/2013 ACOSTA DDS, BENJI 599.0 URINARY TRACT INFECTION 03/23/2013 ACOSTA DDS, BENJI 599.0 URINARY TRACT INFECTION 03/23/2013 SABIHA MAST MD 599.0 URINARY TRACT INFECTION 03/23/2013 BRO ARGUETA DOA K 599.0 URINARY TRACT INFECTION 03/23/2013 SANDI LASSITER ITZ J 599.0 URINARY TRACT INFECTION 03/23/2013 SANDI LASSITER, ITZ J 599.0 URINARY TRACT INFECTION 03/23/2013 SANDI LASSITER, ITZ J 599.0 URINARY TRACT INFECTION 03/23/2013 SANDI LASSITER, ITZ J 599.0 URINARY TRACT INFECTION 03/23/2013 ARGUETA , KIKA K 599.0 URINARY TRACT INFECTION 05/19/2013 MARLENE ACBRERA APRN 793.80 abnormal mammogram 05/19/2013 MARLENE CABRERA APRN 795.19 OTHER ABNORMAL [place] SMEAR OF VAGINA AND VAGINAL HPV 05/19/2013 [facility] R 793.80 abnormal mammogram 05/19/2013 [facility] R 795.19 OTHER ABNORMAL [place] SMEAR OF VAGINA AND VAGINAL HPV 05/19/2013 BRODY ARAYA MD N 793.80 abnormal mammogram 05/19/2013 BRODY ARAYA MD 795.19 OTHER ABNORMAL [place] SMEAR OF VAGINA AND VAGINAL HPV 05/19/2013 REYNALDO VIEIRA APRN T 793.80 abnormal mammogram 05/19/2013 REYNALDO VIEIRA APRN T 795.19 OTHER ABNORMAL [place] SMEAR OF VAGINA AND VAGINAL HPV 05/19/2013 [facility] R 793.80 abnormal mammogram 05/19/2013 [facility] R 795.19 OTHER ABNORMAL [place] SMEAR OF VAGINA AND VAGINAL HPV 05/19/2013 REYNALDO VIEIRA APRN T 793.80 abnormal mammogram 05/19/2013 REYNALDO VIEIRA APRN T 795.19 OTHER ABNORMAL [place] SMEAR OF VAGINA AND VAGINAL HPV 05/19/2013 BRO ARGUETA DOA K 793.80 abnormal mammogram 05/19/2013 ARGUETA DOBROA K 795.19 OTHER ABNORMAL [place] SMEAR OF VAGINA AND VAGINAL HPV 05/19/2013 [facility] R 793.80 abnormal mammogram 05/19/2013 [facility] R 795.19 OTHER ABNORMAL [place] SMEAR OF VAGINA AND VAGINAL HPV 05/19/2013 MARLENE CABRERA APRN 793.80 abnormal mammogram 05/19/2013 MARLENE CABRERA APRN 795.19 OTHER ABNORMAL [place] SMEAR OF VAGINA AND VAGINAL HPV 05/19/2013 [facility] R 793.80 abnormal mammogram 05/19/2013 [facility] R 795.19 OTHER ABNORMAL [place] SMEAR OF VAGINA AND VAGINAL HPV 05/19/2013 [facility] JUNIOR APRN J 793.80 abnormal mammogram 05/19/2013 ITZ JUNIOR APRN J 795.19 OTHER ABNORMAL [place] SMEAR OF VAGINA AND VAGINAL HPV 05/19/2013 ITZ JUNIOR APRN J 793.80 abnormal mammogram 05/19/2013 ITZ JUNIOR APRN J 795.19 OTHER ABNORMAL [place] SMEAR OF VAGINA AND VAGINAL HPV 05/19/2013 BRODY ARAYA MD N 793.80 abnormal mammogram 05/19/2013 BRODY ARAYA MD N 795.19 OTHER ABNORMAL [place] SMEAR OF VAGINA AND VAGINAL HPV 05/19/2013 BRODY ARAYA MD N 793.80 abnormal mammogram 05/19/2013 BRODY ARAYA MD N 795.19 OTHER ABNORMAL [place] SMEAR OF VAGINA AND VAGINAL HPV 05/19/2013 SANDI LASSITER, ITZ J 793.80 abnormal mammogram 05/19/2013 SANDI LASSITER, ITZ J 795.19 OTHER ABNORMAL [place] SMEAR OF VAGINA AND VAGINAL HPV 05/19/2013 BENJI ACOSTA DDS 793.80 abnormal mammogram 05/19/2013 [facility]STA DDS, BENJI 795.19 OTHER ABNORMAL [place] SMEAR OF VAGINA AND VAGINAL HPV 05/19/2013 [facility] DDSBENJI 793.80 abnormal mammogram 05/19/2013 [facility] MIKES, BENJI 795.19 OTHER ABNORMAL [place] SMEAR OF VAGINA AND VAGINAL HPV 05/19/2013 SABIHA MAST MD 793.80 abnormal mammogram 05/19/2013 SABIHA MAST MD 795.19 OTHER ABNORMAL [place] SMEAR OF VAGINA AND VAGINAL HPV 05/19/2013 KIKA ARGUETA DO K 793.80 abnormal mammogram 05/19/2013 KIKA ARGUETA DO K 795.19 OTHER ABNORMAL [place] SMEAR OF VAGINA AND VAGINAL HPV 05/19/2013 SANDI LASSITER, ITZ J 793.80 abnormal mammogram 05/19/2013 SANDI LASSITER, ITZ J 795.19 OTHER ABNORMAL [place] SMEAR OF VAGINA AND VAGINAL HPV 05/19/2013 SANDI LASSITER, ITZ J 793.80 abnormal mammogram 05/19/2013 SANDI LASSITER, ITZ J 795.19 OTHER ABNORMAL [place] SMEAR OF VAGINA AND VAGINAL HPV 05/19/2013 SANDI LASSITER, ITZ J 793.80 abnormal mammogram 05/19/2013 SANDI LASSITER, ITZ J 795.19 OTHER ABNORMAL [place] SMEAR OF VAGINA AND VAGINAL HPV 05/19/2013 ITZ JUNIOR APRN 793.80 abnormal mammogram 05/19/2013 ITZ JUNIOR APRN 795.19 OTHER ABNORMAL [place] SMEAR OF VAGINA AND VAGINAL HPV 05/19/2013 KIKA ARGUETA DO K 793.80 abnormal mammogram 05/19/2013 BRO ARGUETA DOA K 795.19 OTHER ABNORMAL [place] SMEAR OF VAGINA AND VAGINAL HPV 07/01/2013 BRODY ARAYA MD 625.8 OTHER SPECIFIED SYMPTOMS ASSOCIATED WITH FEMALE GENITAL ORGANS 07/01/2013 BRODY ARAYA MD 626.9 UNSPECIFIED DISORDERS OF MENSTRUATION AND OTHER ABNORMAL BLEEDING FROM FEMALE GENITAL TRACT 07/01/2013 BRODY ARAYA MD 782.0 DISTURBANCE OF SKIN SENSATION 07/01/2013 REYNALDO VIEIRA APRN 625.8 OTHER SPECIFIED SYMPTOMS ASSOCIATED WITH FEMALE GENITAL ORGANS 07/01/2013 REYNALDO VIEIRA APRN 626.9 UNSPECIFIED DISORDERS OF MENSTRUATION AND OTHER ABNORMAL BLEEDING FROM FEMALE GENITAL TRACT 07/01/2013 REYNALDO VIEIRA APRN 782.0 DISTURBANCE OF SKIN SENSATION 07/01/2013 DILSHAD ARASH DIAZ R 625.8 OTHER SPECIFIED SYMPTOMS ASSOCIATED WITH FEMALE GENITAL ORGANS 07/01/2013 DILSHAD ARASH DIAZ R 626.9 UNSPECIFIED DISORDERS OF MENSTRUATION AND OTHER ABNORMAL BLEEDING FROM FEMALE GENITAL TRACT 07/01/2013 DILSHAD ARASH DIAZ R 782.0 DISTURBANCE OF SKIN SENSATION 07/01/2013 REYNALDO VIEIRA APRN 625.8 OTHER SPECIFIED SYMPTOMS ASSOCIATED WITH FEMALE GENITAL ORGANS 07/01/2013 REYNALDO VIEIRA APRN 626.9 UNSPECIFIED DISORDERS OF MENSTRUATION AND OTHER ABNORMAL BLEEDING FROM FEMALE GENITAL TRACT 07/01/2013 REYNALDO VIEIRA APRN 782.0 DISTURBANCE OF SKIN SENSATION 07/01/2013 KIKA ARGUETA DO K 625.8 OTHER SPECIFIED SYMPTOMS ASSOCIATED WITH FEMALE GENITAL ORGANS 07/01/2013 BRO ARGUETA DOA K 626.9 UNSPECIFIED DISORDERS OF MENSTRUATION AND OTHER ABNORMAL BLEEDING FROM FEMALE GENITAL TRACT 07/01/2013 BRO ARGUETA DOA K 782.0 DISTURBANCE OF SKIN SENSATION 07/01/2013 DILSHAD JOE, ARASH R 625.8 OTHER SPECIFIED SYMPTOMS ASSOCIATED WITH FEMALE GENITAL ORGANS 07/01/[facility] UNSPECIFIED DISORDERS OF MENSTRUATION AND OTHER ABNORMAL BLEEDING FROM FEMALE GENITAL TRACT 07/01/2013 [facility] R 782.0 DISTURBANCE OF SKIN SENSATION 07/01/2013 MARLENE CABRERA APRN 625.8 OTHER SPECIFIED SYMPTOMS ASSOCIATED WITH FEMALE GENITAL ORGANS 07/01/2013 MARLENE CABRERA APRN 626.9 UNSPECIFIED DISORDERS OF MENSTRUATION AND OTHER ABNORMAL BLEEDING FROM FEMALE GENITAL TRACT 07/01/2013 MARLENE CABRERA APRN 782.0 DISTURBANCE OF SKIN SENSATION 07/01/2013 [facility]ASH R 625.8 OTHER SPECIFIED SYMPTOMS ASSOCIATED WITH FEMALE GENITAL ORGANS 07/01/2013 [facility]ASH R 626.9 UNSPECIFIED DISORDERS OF MENSTRUATION AND OTHER ABNORMAL BLEEDING FROM FEMALE GENITAL TRACT 07/01/2013 [facility], ARASH R 782.0 DISTURBANCE OF SKIN SENSATION 07/01/2013 SANDI LASSITER ITZ J 625.8 OTHER SPECIFIED SYMPTOMS ASSOCIATED WITH FEMALE GENITAL ORGANS 07/01/2013 SANDI LASSITER ITZ J 626.9 UNSPECIFIED DISORDERS OF MENSTRUATION AND OTHER ABNORMAL BLEEDING FROM FEMALE GENITAL TRACT 07/01/2013 SANDI LASSITER ITZ J 782.0 DISTURBANCE OF SKIN SENSATION 07/01/2013 SANDI LASSITER ITZ J 625.8 OTHER SPECIFIED SYMPTOMS ASSOCIATED WITH FEMALE GENITAL ORGANS 07/01/2013 SANDI LASSITER ITZ J 626.9 UNSPECIFIED DISORDERS OF MENSTRUATION AND OTHER ABNORMAL BLEEDING FROM FEMALE GENITAL TRACT 07/01/2013 SANDI LASSITER ITZ J 782.0 DISTURBANCE OF SKIN SENSATION 07/01/2013 BRODY ARAYA MD N 625.8 OTHER SPECIFIED SYMPTOMS ASSOCIATED WITH FEMALE GENITAL ORGANS 07/01/2013 BRODY ARAYA MD N 626.9 UNSPECIFIED DISORDERS OF MENSTRUATION AND OTHER ABNORMAL BLEEDING FROM FEMALE GENITAL TRACT 07/01/2013 BRODY ARAYA MD N 782.0 DISTURBANCE OF SKIN SENSATION 07/01/2013 BRODY ARAYA MD N 625.8 OTHER SPECIFIED SYMPTOMS ASSOCIATED WITH FEMALE GENITAL ORGANS 07/01/2013 BRODY RAAYA MD N 626.9 UNSPECIFIED DISORDERS OF MENSTRUATION AND OTHER ABNORMAL BLEEDING FROM FEMALE GENITAL TRACT 07/01/2013 BRODY ARAYA MD N 782.0 DISTURBANCE OF SKIN SENSATION 07/01/2013 CLAUDE JUNIOR APRNINDA J 625.8 OTHER SPECIFIED SYMPTOMS ASSOCIATED WITH FEMALE GENITAL ORGANS 07/01/2013 SANDI LASSITER, ITZ J 626.9 UNSPECIFIED DISORDERS OF MENSTRUATION AND OTHER ABNORMAL BLEEDING FROM FEMALE GENITAL TRACT 07/01/2013 ITZ JUNIOR APRN J 782.0 DISTURBANCE OF SKIN SENSATION 07/01/2013 ACOSTA DDS, BENJI 625.8 OTHER SPECIFIED SYMPTOMS ASSOCIATED WITH FEMALE GENITAL ORGANS 07/01/2013 ACOSTA DDS, BENJI 626.9 UNSPECIFIED DISORDERS OF MENSTRUATION AND OTHER ABNORMAL BLEEDING FROM FEMALE GENITAL TRACT 07/01/2013 ACOSTA DDS, BENJI 782.0 DISTURBANCE OF SKIN SENSATION 07/01/2013 ACOSTA DDS, BENJI 625.8 OTHER SPECIFIED SYMPTOMS ASSOCIATED WITH FEMALE GENITAL ORGANS 07/01/2013 ACOSTA DDS, BENJI 626.9 UNSPECIFIED DISORDERS OF MENSTRUATION AND OTHER ABNORMAL BLEEDING FROM FEMALE GENITAL TRACT 07/01/2013 ACOSTA DDS, BENJI 782.0 DISTURBANCE OF SKIN SENSATION 07/01/2013 SABIHA MAST MD 625.8 OTHER SPECIFIED SYMPTOMS ASSOCIATED WITH FEMALE GENITAL ORGANS 07/01/2013 SABIHA MAST MD 626.9 UNSPECIFIED DISORDERS OF MENSTRUATION AND OTHER ABNORMAL BLEEDING FROM FEMALE GENITAL TRACT 07/01/2013 SABIHA MAST MD 782.0 DISTURBANCE OF SKIN SENSATION 07/01/2013 KIKA ARGUETA DO 625.8 OTHER SPECIFIED SYMPTOMS ASSOCIATED WITH FEMALE GENITAL ORGANS 07/01/2013 KIKA ARGUETA DO K 626.9 UNSPECIFIED DISORDERS OF MENSTRUATION AND OTHER ABNORMAL BLEEDING FROM FEMALE GENITAL TRACT 07/01/2013 KIKA ARGUETA DO K 782.0 DISTURBANCE OF SKIN SENSATION 07/01/2013 SANDI LASSITER ITZ J 625.8 OTHER SPECIFIED SYMPTOMS ASSOCIATED WITH FEMALE GENITAL ORGANS 07/01/2013 SANDI LASSITER ITZ J 626.9 UNSPECIFIED DISORDERS OF MENSTRUATION AND OTHER ABNORMAL BLEEDING FROM FEMALE GENITAL TRACT 07/01/2013 SANDI LASSITER ITZ J 782.0 DISTURBANCE OF SKIN SENSATION 07/01/2013 SANDI LASSITER, ITZ J 625.8 OTHER SPECIFIED SYMPTOMS ASSOCIATED WITH FEMALE GENITAL ORGANS 07/01/2013 SANDI LASSITER ITZ J 626.9 UNSPECIFIED DISORDERS OF MENSTRUATION AND OTHER ABNORMAL BLEEDING FROM FEMALE GENITAL TRACT 07/01/2013 SANDI LASSITER ITZ J 782.0 DISTURBANCE OF SKIN SENSATION 07/01/2013 ROSA JUNIOR APRNA J 625.8 OTHER SPECIFIED SYMPTOMS ASSOCIATED WITH FEMALE GENITAL ORGANS 07/01/2013 ROSA JUNIOR APRNA J 626.9 UNSPECIFIED DISORDERS OF MENSTRUATION AND OTHER ABNORMAL BLEEDING FROM FEMALE GENITAL TRACT 07/01/2013 ROSA JUNIOR APRNA J 782.0 DISTURBANCE OF SKIN SENSATION 07/01/2013 ITZ JUNIOR APRN J 625.8 OTHER SPECIFIED SYMPTOMS ASSOCIATED WITH FEMALE GENITAL ORGANS 07/01/2013 ROSA JUNIOR APRNA J 626.9 UNSPECIFIED DISORDERS OF MENSTRUATION AND OTHER ABNORMAL BLEEDING FROM FEMALE GENITAL TRACT 07/01/2013 SANDI LASSITER ITZ J 782.0 DISTURBANCE OF SKIN SENSATION 07/01/2013 BRO ARGUETA DOA K 625.8 OTHER SPECIFIED SYMPTOMS ASSOCIATED WITH FEMALE GENITAL ORGANS 07/01/2013 BRO ARGUETA DOA K 626.9 UNSPECIFIED DISORDERS OF MENSTRUATION AND OTHER ABNORMAL BLEEDING FROM FEMALE GENITAL TRACT 07/01/2013 BRO ARGUETA DOA K 782.0 DISTURBANCE OF SKIN SENSATION 07/15/2013 REYNALDO VIEIRA APRN 354.0 CARPAL TUNNEL SYNDROME 07/15/2013 [facility] R 354.0 CARPAL TUNNEL SYNDROME 07/15/2013 REYNALDO VIEIRA APRN 354.0 CARPAL TUNNEL SYNDROME 07/15/2013 KIKA ARGUETA DO K 354.0 CARPAL TUNNEL SYNDROME 07/15/2013 [facility] ARASH R 354.0 CARPAL TUNNEL SYNDROME 07/15/2013 MARLENE CABRERA APRN 354.0 CARPAL TUNNEL SYNDROME 07/15/2013 [facility] ARASH R 354.0 CARPAL TUNNEL SYNDROME 07/15/2013 ITZ JUNIOR APRN 354.0 CARPAL TUNNEL SYNDROME 07/15/2013 ITZ JUNIOR APRN 354.0 CARPAL TUNNEL SYNDROME 07/15/2013 BRODY ARAYA MD 354.0 CARPAL TUNNEL SYNDROME 07/15/2013 BRODY ARAYA MD 354.0 CARPAL TUNNEL SYNDROME 07/15/2013 ITZ JUNIOR APRN 354.0 CARPAL TUNNEL SYNDROME 07/15/2013 BENJI ACOSTA DDS 354.0 CARPAL TUNNEL SYNDROME 07/15/2013 BENJI ACOSTA DDS 354.0 CARPAL TUNNEL SYNDROME 07/15/2013 SABIHA MAST MD 354.0 CARPAL TUNNEL SYNDROME 07/15/2013 KIKA ARGUETA DO 354.0 CARPAL TUNNEL SYNDROME 07/15/2013 ITZ JUNIOR APRN 354.0 CARPAL TUNNEL SYNDROME 07/15/2013 ITZ JUNIOR APRN 354.0 CARPAL TUNNEL SYNDROME 07/15/2013 ITZ JUNIOR APRN 354.0 CARPAL TUNNEL SYNDROME 07/15/2013 ITZ JUNIOR APRN 354.0 CARPAL TUNNEL SYNDROME 07/15/2013 KIKA ARGUETA DO 354.0 CARPAL TUNNEL SYNDROME 07/21/2013 ROBI MAGAÑA MD Ot 592.0 CALCULUS OF KIDNEY 07/21/2013 ROBI MAGAÑA MD Ot 596.51 HYPERTONICITY OF BLADDER 07/21/2013 ROBI MAGAÑA MD Ot 788.30 UNSPECIFIED URINARY INCONTINENCE 07/21/2013 ROBI MAGAÑA MD Ot 789.02 ABDOMINAL PAIN, LEFT UPPER QUADRANT 07/21/2013 ROBI MAGAÑA MD Ot 791.9 ABN URINE FINDINGS NEC 07/21/2013 ROBI MAGAÑA MD Ot V58.69 OTH MED,LT,CURRENT USE 09/08/2013 KIKA ARGUETA DO 307.81 TENSION HEADACHE 09/08/2013 [facility] R 307.81 TENSION HEADACHE 09/08/2013 MARLENE CABRERA APRN 307.81 TENSION HEADACHE 09/08/2013 [facility]ASH R 307.81 TENSION HEADACHE 09/08/2013 ITZ JUNIOR APRN 307.81 TENSION HEADACHE 09/08/2013 ITZ JUNIOR APRN 307.81 TENSION HEADACHE 09/08/2013 BRODY ARAYA MD 307.81 TENSION HEADACHE 09/08/2013 BRODY ARAYA MD 307.81 TENSION HEADACHE 09/08/2013 ITZ JUNIOR APRN 307.81 TENSION HEADACHE 09/08/2013 KARLA MCKEONS, BENJI 307.81 TENSION HEADACHE 09/08/2013 KARLA DDS, BENJI 307.81 TENSION HEADACHE 09/08/2013 SABIHA MAST MD 307.81 TENSION HEADACHE 09/08/2013 ARGUETA DO, KIKA K 307.81 TENSION HEADACHE 09/08/2013 ITZ JUNIOR APRN 307.81 TENSION HEADACHE 09/08/2013 SANDI GUN EXAMINER, ITZ J 307.81 TENSION HEADACHE 09/08/2013 SANDI GUN EXAMINER, ITZ J 307.81 TENSION HEADACHE 09/08/2013 SANDI LASSITER, ITZ J 307.81 TENSION HEADACHE 09/08/2013 KIKA ARGUETA DO 307.81 TENSION HEADACHE 09/25/2013 ZOFIA MORA DO Ot 558.9 NONINF GASTROENTERIT NEC 09/25/2013 ZOFIA MORA DO Ot 787.01 NAUSEA WITH VOMITING 10/25/2013 ZOFIA OMRA DO Ot 112.0 THRUSH 10/25/2013 ZOFIA MORA DO Ot 345.10 GEN CONVULS 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 10/25/2013 ZOFIA MORA DO Ot 599.0 URIN TRACT INFECTION NOS 12/14/2013 ZOFIA MORA DO Ot 311 DEPRESSIVE DISORDER NEC 12/14/2013 ZOFIA MORA DO Ot 345.90 EPILEPSY UNSPEC W/O MENTION INTRACTABLE 12/14/2013 ZOFIA MORA DO Ot 530.81 ESOPHAGEAL REFLUX 12/14/2013 ZOFIA MORA DO Ot 591 HYDRONEPHROSIS 12/14/2013 ZOFIA MORA DO Ot 592.1 CALCULUS OF URETER 12/14/2013 ZOFIA MORA DO Ot 599.0 URIN TRACT INFECTION NOS 12/14/2013 ZOFIA MORA DO Ot 599.70 HEMATURIA, UNSPECIFIED 12/14/2013 ZOFIA MORA DO Ot 729.1 MYALGIA AND MYOSITIS NOS 12/18/2013 BRODY ARAYA MD N Ot 272.4 HYPERLIPIDEMIA NEC/NOS 12/18/2013 BRODY AARYA MD Ot 296.90 UNSPECIFIED EPISODIC MOOD DISORDER 12/18/2013 BRODY ARAYA MD Ot 577.0 ACUTE PANCREATITIS 12/18/2013 BRODY ARAYA MD Ot 592.0 CALCULUS OF KIDNEY 12/18/2013 BRODY ARAYA MD Ot 729.1 MYALGIA AND MYOSITIS NOS 12/18/2013 BRODY ARAYA MD Ot 782.2 LOCAL SUPRFICIAL SWELLNG 12/18/2013 BRODY ARAYA MD Ot 790.29 OTHER ABNORMAL GLUCOSE 12/22/2013 BRODY ARAYA MD N 577.0 ACUTE PANCREATITIS 12/22/2013 BRODY ARAYA MD N 577.0 ACUTE PANCREATITIS 12/22/2013 SANDI LASSITER, ITZ J 577.0 ACUTE PANCREATITIS 12/22/2013 ACOSTA DDS, BENJI 577.0 ACUTE PANCREATITIS 12/22/2013 ACOSTA DDS, BENJI 577.0 ACUTE PANCREATITIS 12/22/2013 SABIHA MAST MD 577.0 ACUTE PANCREATITIS 12/22/2013 ARGUETA DO KIKA K 577.0 ACUTE PANCREATITIS 12/22/2013 SANDI GUN EXAMINERROSA LindaA J 577.0 ACUTE PANCREATITIS 12/22/2013 SANDI GUN EXAMINER, ITZ J 577.0 ACUTE PANCREATITIS 12/22/2013 SANDI GUN EXAMINER, ITZ J 577.0 ACUTE PANCREATITIS 12/22/2013 SANDI LASSITER, ITZ J 577.0 ACUTE PANCREATITIS 12/22/2013 ARGUETA DO, KIKA K 577.0 ACUTE PANCREATITIS 01/02/2014 LAURA FINCH APRN Ot 311 DEPRESSIVE DISORDER NEC 01/02/2014 LAURA FINCH APRN Ot 345.90 EPILEPSY UNSPEC W/O MENTION INTRACTABLE 01/02/2014 LAURA FINCH APRN Ot 346.90 MIGRAINE UNSPECIFIED W/O INTRACT MGRN W/ 01/02/2014 LAURA FINCH GUN EXAMINER Ot 493.90 ASTHMA, UNSPECIFIED 01/02/2014 LAURA FINCH APRN Ot 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 01/02/2014 LAURA FINCH APRN Ot 592.0 CALCULUS OF KIDNEY 01/02/2014 LAURA FINCH APRN Ot 599.0 URIN TRACT INFECTION NOS 01/02/2014 LAURA FINCH APRN Ot 729.1 MYALGIA AND MYOSITIS NOS 01/02/2014 LAURA FINCH APRN Ot 789.09 ABDOMINAL PAIN, OTHER SPECIFIED SITE 01/02/2014 LAURA FINCH APRN Ot 793.4 NOSP (ABN) FINDINGS ON RADIOLOGICAL OT 01/10/2014 MILADYS SAUCEDO, MARISA Gant Ot 592.0 CALCULUS OF KIDNEY 01/12/2014 NETTIE HAHN DO Semaj Ot 706.2 SEBACEOUS CYST 01/21/2014 MAYRA QUINONES Ot 110.5 DERMATOPHYTOSIS OF BODY 01/21/2014 MAYRA QUINONES Ot 782.1 NONSPECIF SKIN ERUPT NEC 02/03/2014 SABIHA MAST MD Ot 276.51 DEHYDRATION 02/03/2014 SABIHA MAST MD, Ot 276.52 HYPOVOLEMIA 02/03/2014 SABIHA MAST MD Ot 296.80 BIPOLAR DISORDER, UNSPECIFIED 02/03/2014 SABIHA MAST MD Ot 309.81 POSTTRAUMATIC STRESS DISORDER 02/03/2014 SABIHA MAST MD Ot 327.23 OBSTRUCTIVE SLEEP APNEA (ADULT) (PEDIATR 02/03/2014 SABIHA MAST MD Ot 345.90 EPILEPSY UNSPEC W/O MENTION INTRACTABLE 02/03/2014 SABIHA MAST MD Ot 346.90 MIGRAINE UNSPECIFIED W/O INTRACT MGRN W/ 02/03/2014 SABIHA MAST MD Ot 493.90 ASTHMA, UNSPECIFIED 02/03/2014 SABIHA MAST MD Ot 584.9 ACUTE RENAL FAILURE, UNSPECIFIED 02/03/2014 SABIHA MAST MD Ot 592.0 CALCULUS OF KIDNEY 02/03/2014 SABIHA MAST MD Ot 724.5 BACKACHE NOS 02/03/2014 SABIHA MAST MD Ot 729.1 MYALGIA AND MYOSITIS NOS 02/03/2014 SABIHA MAST MD Ot 783.0 ANOREXIA 02/03/2014 SABIHA MAST MD Ot 785.0 TACHYCARDIA NOS 02/03/2014 SABIHA MAST MD Ot 787.02 NAUSEA ALONE 02/03/2014 SABIHA MAST MD Ot 787.91 DIARRHEA 02/03/2014 SABIHA MAST MD Ot 995.94 SIRS DUE TO NONINFECTIOUS PROCESS W ACUT 02/03/2014 SABIHA MAST MD Ot V10.44 HX-FEMALE GENIT MALG NEC 02/03/2014 SABIHA MAST MD Ot V12.79 PERSONAL HISTORY OTH SPEC DIGESTIVE SYST 02/03/2014 SABIHA MAST MD, Ot V58.69 OTH MED,LT,CURRENT USE 02/15/2014 MILADYS SAUCEDO, MARISA Gant Ot 592.0 CALCULUS OF KIDNEY 02/18/2014 ZOFIA MORA DO Venkata Ot 338.18 OTHER ACUTE POSTOPERATIVE PAIN 02/18/2014 ZOFIA MORA DO Ot 599.70 HEMATURIA, UNSPECIFIED 02/18/2014 ZOFIA MORA DO Ot 998.11 HEMOR COMPLIC A PROCEDURE 03/02/2014 LAURA FINCH GUN EXAMINER Ot 311 DEPRESSIVE DISORDER NEC 03/02/2014 LAURA FINCH GUN EXAMINER Ot 599.0 URIN TRACT INFECTION NOS 03/02/2014 LAURA FINCH GUN EXAMINER Ot 729.1 MYALGIA AND MYOSITIS NOS 03/02/2014 LAURA FINCH APRN Ot 787.01 NAUSEA WITH VOMITING 03/14/2014 KEZIA SAUCEDO, SABIHA V58.69 HIGH RISK MEDICATION 03/14/2014 KIKA ARGUETA DO V58.69 HIGH RISK MEDICATION 03/14/2014 ITZ JUNIOR APRN V58.69 HIGH RISK MEDICATION 03/14/2014 ITZ JUNIOR APRN V58.69 HIGH RISK MEDICATION 03/14/2014 ITZ JUNIOR APRN V58.69 HIGH RISK MEDICATION 03/14/2014 ITZ JUNIOR APRN V58.69 HIGH RISK MEDICATION 03/14/2014 KIKA ARGUETA DO V58.69 HIGH RISK MEDICATION 03/24/2014 ROBI MAGAÑA MD Ot 784.0 HEADACHE 04/05/2014 ZABRINA WOLF MD Ot 784.0 HEADACHE 04/11/2014 ZABRINA WOLF MD Ot 780.39 OTHER CONVULSIONS 04/11/2014 ZABRINA WOLF MD Ot 784.0 HEADACHE 04/24/2014 MILADYS SAUCEDO, MARISA Gant Ot 592.9 04/24/2014 MARSHAL SAUCEDO, BRODY Linda Ot 577.0 05/10/2014 MAYRA QUINONES Ot 599.0 URIN TRACT INFECTION NOS 05/10/2014 MAYRA QUINONES Ot 787.01 NAUSEA WITH VOMITING 05/10/2014 MAYRA QUINONES Ot 787.91 DIARRHEA 05/12/2014 YASSINE KNOX VALIDATION ANALYST Ot 611.72 05/12/2014 ROMMEL MCMILLAN GUN EXAMINER Ot 611.71 05/12/2014 MILADYS SAUCEDO, MARISA A Ot 592.0 05/12/2014 MILADYS SAUCEDO, MARISA A Ot 789.00 05/12/2014 MILADYS SAUCEDO, MARISA A Ot 592.9 05/12/2014 MILADYS SAUCEDO, MARISA A Ot 592.0 05/12/2014 MILADYS SAUCEDO, MARISA A Ot V72.84 05/12/2014 MARSHAL SAUCEDO, BRODY Linda Ot 577.0 05/12/2014 NETTIE HAHN DO Ot 782.2 05/12/2014 NETTIE HAHN DO Ot V72.84 05/12/2014 MILADYS SAUCEDO, MARISA A Ot 592.0 05/12/2014 MILADYS SAUCEDO, MARISA A Ot V72.84 05/12/2014 MILADYS SAUCEDO, MARISA A Ot 592.0 06/20/2014 MAYRA QUINONES Ot 458.9 HYPOTENSION NOS 06/20/2014 MAYRA QUINONES Ot 465.9 ACUTE URI NOS 06/20/2014 MAYRA QUINONES Ot 599.0 URIN TRACT INFECTION NOS 06/20/2014 MAYRA QUINONES Ot 785.0 TACHYCARDIA NOS 06/23/2014 YASSINE KNOX [facility] Ot 611.72 06/23/2014 ROMMEL MCMILLAN GUN EXAMINER Ot 611.71 06/23/2014 MILADYS SAUCEDO, MARISA A Ot 592.0 06/23/2014 MILADYS SAUCEDO, MARISA A Ot 789.00 06/23/2014 MILADYS SAUCEDO, MARISA A Ot 592.9 06/23/2014 MILADYS SAUCEDO, MARISA A Ot 592.0 06/23/2014 MILADYS SAUCEDO, MARISA A Ot V72.84 06/23/2014 MARSHAL SAUCEDO, BRODY Linda Ot 577.0 06/23/2014 HAHNNETTIE MAURICIO DO Ot 782.2 06/23/2014 NETTIE HAHN DO Ot V72.84 06/23/2014 MILADYS SAUCEDO, MARISA A Ot 592.0 06/23/2014 MILADYS SAUCEDO, MARISA A Ot V72.84 06/23/2014 MARISA HOOK MD Ot 592.0 06/30/2014 Ot 721.3 06/30/2014 Ot 729.1 06/30/2014 Ot 788.42 06/30/2014 Ot 791.5 06/30/2014 Ot 783.1 06/30/2014 Ot 782.3 06/30/2014 Ot V16.3 06/30/2014 Ot V76.12 06/30/2014 Ot 592.0 06/30/2014 Ot V72.63 06/30/2014 Ot V72.81 06/30/2014 Ot V67.09 06/30/2014 Ot 592.1 06/30/2014 Ot V72.81 06/30/2014 Ot 592.0 06/30/2014 Ot 599.0 06/30/2014 Ot 780.79 06/30/2014 Ot 592.0 06/30/2014 Ot 599.0 06/30/2014 Ot 787.01 06/30/2014 Ot 598.9 06/30/2014 Ot 599.0 06/30/2014 Ot V72.83 06/30/2014 Ot V74.8 06/30/2014 Ot 789.33 06/30/2014 Ot 592.0 06/30/2014 Ot 592.0 06/30/2014 Ot 787.99 06/30/2014 Ot 793.1 06/30/2014 Ot 518.0 06/30/2014 Ot 780.79 06/30/2014 Ot 786.2 06/30/2014 Ot 368.8 06/30/2014 Ot 784.0 06/30/2014 Ot 433.10 06/30/2014 Ot 784.99 06/30/2014 Ot 786.2 06/30/2014 Ot 433.10 06/30/2014 Ot 433.30 06/30/2014 Ot 530.81 06/30/2014 Ot 553.3 06/30/2014 Ot 787.01 06/30/2014 Ot V72.83 06/30/2014 Ot V74.8 06/30/2014 Ot 433.30 06/30/2014 Ot 462 06/30/2014 Ot V10.3 06/30/2014 Ot V76.11 06/30/2014 Ot 780.39 06/30/2014 Ot 786.2 06/30/2014 Ot 780.39 06/30/2014 Ot 784.3 06/30/2014 Ot 787.20 06/30/2014 Ot 345.90 06/30/2014 Ot 285.9 06/30/2014 Ot 623.0 06/30/2014 Ot V72.84 06/30/2014 Ot V74.8 06/30/2014 Ot V72.84 06/30/2014 YASSINE KNOXP Ot 611.72 06/30/2014 ROMMEL MCMILLAN APRN Ot 611.71 06/30/2014 MILADYS SAUCEDO, MARISA A Ot 592.0 06/30/2014 MILADYS SAUCEDO, MARISA A Ot 789.00 06/30/2014 MILADYS SAUCEDO, MARISA A Ot 592.9 06/30/2014 MILADYS SAUCEDO, MARISA A Ot 592.0 06/30/2014 MILADYS SAUCEDO, MARISA A Ot V72.84 06/30/2014 MARSHAL SAUCEDO, BRODY Linda Ot 577.0 06/30/2014 NETTIE HAHN DO Ot 782.2 06/30/2014 NETTIE HAHN DO Ot V72.84 06/30/2014 MILADYS SAUCEDO, MARISA Gant Ot 592.0 06/30/2014 MILADYS SAUCEDO, MARISA A Ot V72.84 06/30/2014 MILADYS SAUCEDO, MARISA A Ot 592.0 06/30/2014 YASSINE KNOXP Ot 611.72 06/30/2014 ROMMEL MCMILLAN APRN Ot 611.71 06/30/2014 MILADYS SAUCEDO, MARISA A Ot 592.0 06/30/2014 MILADYS SAUCEDO, MARISA A Ot 789.00 06/30/2014 MILADYS SAUCEDO, MARISA A Ot 592.9 06/30/2014 MILADYS SAUCEDO, MARISA A Ot 592.0 06/30/2014 MILADYS SAUCEDO, MARISA A Ot V72.84 06/30/2014 MARSHAL SAUCEDO, BRODY Linda Ot 577.0 06/30/2014 NETTIE HAHN DO Ot 782.2 06/30/2014 NETTIE HAHN DO Ot V72.84 06/30/2014 MILADYS SAUCEDO, MARISA A Ot 592.0 06/30/2014 MILADYS SAUCEDO, MARISA A Ot V72.84 06/30/2014 MILADYS SAUCEDO, MARISA A Ot 592.0 07/01/2014 YASSINE KNOX VALIDATION ANALYST Ot 611.72 07/01/2014 ROMMEL MCMILLAN APRN Ot 611.71 07/01/2014 MILADYS SAUCEDO, MARISA A Ot 592.0 07/01/2014 MILADYS SAUCEDO, MARISA A Ot 789.00 07/01/2014 MILADYS SAUCEDO, MARISA A Ot 592.9 07/01/2014 MILADYS SAUCEDO, MARISA A Ot 592.0 07/01/2014 MILADYS SAUCEDO, MARISA A Ot V72.84 07/01/2014 MARSHAL SAUCEDO, BRODY Linda Ot 577.0 07/01/2014 SHUNK NETTIE DE [place] TORRE Ot 782.2 07/01/2014 SHUNK NETTIE [place] Ot V72.84 07/01/2014 MILADYS SAUCEDO, MARISA A Ot 592.0 07/01/2014 MILADYS SAUCEDO, MARISA A Ot V72.84 07/01/2014 MILADYS SAUCEDO, MARISA A Ot 592.0 07/01/2014 REYNALDO LONDONO DO Ot 788.1 DYSURIA 07/01/2014 REYNALDO LONDONO DO Ot 789.09 ABDOMINAL PAIN, OTHER SPECIFIED SITE 07/03/2014 YASSINE KNOX VALIDATION ANALYST Ot 611.72 07/03/2014 ROMMEL MCMILLAN APRN Ot 611.71 07/03/2014 MILADYS SAUCEDO, MARISA A Ot 592.0 07/03/2014 MILADYS SAUCEDO, MARISA A Ot 789.00 07/03/2014 MILADYS SAUCEDO, MARISA A Ot 592.9 07/03/2014 MILADYS SAUCEDO, MARISA A Ot 592.0 07/03/2014 MILADYS SAUCEDO, MARISA A Ot V72.84 07/03/2014 MARSHAL SAUCEDO, BRODY Linda Ot 577.0 07/03/2014 SHUNK NETTIE DE [place] TOR[place] Ot 782.2 07/03/2014 NETTIE HAHN DO Ot V72.84 07/03/2014 MILADYS SAUCEDO, MARISA Gant Ot 592.0 07/03/2014 MILADYS SAUCEDO, MARISA A Ot V72.84 07/03/2014 MILADYS SAUCEDO, MARISA A Ot 592.0 07/03/2014 MILADYS SAUCEDO, MARISA Gant Ot 592.0 07/13/2014 MILADYS SAUCEDO, MARISA A Ot 592.0 08/08/2014 Ot 595.1 CHR INTERSTIT CYSTITIS 08/08/2014 Ot 625.9 FEM GENITAL SYMPTOMS NOS 08/08/2014 Ot V58.69 OTH MED,LT, CURRENT USE 09/03/2014 YASSINE KNOX VALIDATION ANALYST Ot 611.72 09/03/2014 ROMMEL MCMILLAN GUN EXAMINER Ot 611.71 09/03/2014 MILADYS SAUCEDO, MARISA Gant Ot 592.0 09/03/2014 MILADYS SAUCEDO, MARISA Gant Ot 789.00 09/03/2014 MILADYS SAUCEDO, MARISA A Ot 592.9 09/03/2014 MILADYS SAUCEDO, MARISA A Ot 592.0 09/03/2014 MILADYS SAUCEDO, MARISA A Ot V72.84 09/03/2014 MARSHAL SAUCEDO, BRODY Linda Ot 577.0 09/03/2014 SHUNK NETTIE DE [place] Ot 782.2 09/03/2014 SHUNK NETTIE [place] Ot V72.84 09/03/2014 MILADYS SAUCEDO, MARISA Gant Ot 592.0 09/03/2014 MILADYS SAUCEDO, MARISA A Ot V72.84 09/03/2014 MILADYS SAUCEDO, MARISA A Ot 592.0 09/03/2014 Ot 595.9 09/03/2014 Ot V72.84 09/03/2014 LAURA FINCH APRN Ot 518.0 PULMONARY COLLAPSE 09/03/2014 LAURA FINCH GUN EXAMINER Ot 786.05 SHORTNESS OF BREATH 09/03/2014 LAURA FINCH APRN Ot 786.52 PAINFUL RESPIRATION 09/12/2014 KIKA ARGUETA DO V81.1 HYPERTENSION SCREENING 09/15/2014 ADOLFO SAUCEDO, ANGEL Saba Ot 493.90 ASTHMA, UNSPECIFIED 09/15/2014 ADOLFO SAUCEDO, ANGEL Saba Ot 599.0 URIN TRACT INFECTION NOS 09/15/2014 ADOLFO SAUCEDO, ANGEL Saba Ot 786.52 PAINFUL RESPIRATION 09/15/2014 ADOLFO SAUCEDO, ANGEL Saba Ot V58.69 OT MED,LT,CURRENT USE 09/20/2014 Ot 433.10 09/20/2014 Ot 433.30 09/20/2014 Ot 530.81 09/20/2014 Ot 553.3 09/20/2014 Ot 787.01 09/20/2014 Ot V72.83 09/20/2014 Ot V74.8 09/20/2014 Ot 433.30 09/20/2014 Ot 462 09/20/2014 Ot V10.3 09/20/2014 Ot V76.11 09/20/2014 Ot 780.39 09/20/2014 Ot 786.2 09/20/2014 Ot 780.39 09/20/2014 Ot 784.3 09/20/2014 Ot 787.20 09/20/2014 Ot 345.90 09/20/2014 Ot 285.9 09/20/2014 Ot 623.0 09/20/2014 Ot V72.84 09/20/2014 Ot V74.8 10/13/2014 LAURA FINCH GUN EXAMINER Ot 592.0 CALCULUS OF KIDNEY 10/13/2014 LAURA FINCH GUN EXAMINER Ot 599.0 URIN TRACT INFECTION NOS 10/13/2014 LAURA FINCH GUN EXAMINER Ot 724.1 PAIN IN THORACIC SPINE 10/26/2014 Ot 592.0 10/26/2014 Ot 599.0 10/26/2014 MAYRA QUINONES Ot 401.9 HYPERTENSION NOS 10/26/2014 MAYRA QUINONES Ot 592.0 CALCULUS OF KIDNEY 10/26/2014 MAYRA QUINONES Ot 599.0 URIN TRACT INFECTION NOS 10/26/2014 MAYRA QUINONES Ot 729.1 MYALGIA AND MYOSITIS NOS 10/26/2014 MAYRA QUINONES Ot 787.91 DIARRHEA 10/26/2014 MAYRA QUINONES Ot 792.1 ABN FIND-STOOL CONTENTS 11/03/2014 MARISA HOOK MD Ot 592.0 11/03/2014 MILADYS SAUCEDO, MARISA Stalin Ot V72.84 11/03/2014 MILADYS SAUCEDO, MARISA A Ot 592.0 11/03/2014 MILADYS SAUCEDO, MARISA A Ot V72.84 11/07/2014 Ot 592.0 11/07/2014 Ot 599.0 11/07/2014 MILADYS SAUCEDO, MARISA Gant Ot 592.0 CALCULUS OF KIDNEY 11/22/2014 MILADYS SAUCEDO, MARISA A Ot 592.0 11/27/2014 LAURA FINCH APRN Ot 592.1 CALCULUS OF URETER 11/27/2014 LAURA FINCH GUN EXAMINER Ot 789.00 ABDOMINAL PAIN, UNSPECIFIED SITE 12/27/2014 MILADYS SAUCEDO, MARISA A Ot 592.0 12/27/2014 MILADYS SAUCEDO, MARISA A Ot V45.89 01/19/2015 MILADYS SAUCEDO, MARISA A Ot 592.0 01/19/2015 MILADYS SAUCEDO, MARISA A Ot 592.0 01/19/2015 MILADYS SAUCEDO, MARISA A Ot V45.89 01/25/2015 MILADYS SAUCEDO, MARISA A Ot 592.0 01/25/2015 MILADYS SAUCEDO, MARISA A Ot 592.0 01/25/2015 MILADYS SAUCEDO, MARISA A Ot V45.89 02/09/2015 ZOFIA MORA DO Ot 599.0 URIN TRACT INFECTION NOS 02/09/2015 ZOFIA MORA DO Ot 722.11 THORACIC DISC DISPLACMNT 02/09/2015 ZOFIA MORA DO Ot 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 02/09/2015 ZOFIA MORA DO Ot 722.52 LUMB/LUMBOSAC DISC DEGEN 02/09/2015 ZOFIA MORA DO Ot 724.1 PAIN IN THORACIC SPINE 03/14/2015 KEZIA SAUCEDO, SABIHA Glaser Ot 722.51 04/09/2015 LAURA FINCH GUN EXAMINER Ot G89.29 OTHER CHRONIC PAIN 04/09/2015 LAURA FINCH GUN EXAMINER Ot K76.0 FATTY (CHANGE OF) LIVER, NOT ELSEWHERE C 04/09/2015 LAURA FINCH GUN EXAMINER Ot M54.12 RADICULOPATHY, CERVICAL REGION 04/09/2015 YASSINE KNOX VALIDATION ANALYST Ot 611.72 04/09/2015 ROMMEL MCMILLAN APRN Ot 611.71 04/09/2015 MILADYS SAUCEDO, MARISA Gant Ot 592.0 04/09/2015 MILADYS SAUCEDO, MARISA A Ot 789.00 04/09/2015 MILADYS SAUCEDO, MARISA A Ot 592.9 04/09/2015 MILADYS SAUCEDO, MARISA A Ot 592.0 04/09/2015 MILADYS SAUCEDO, MARISA A Ot V72.84 04/09/2015 MARSHAL SAUCEDO, BRODY Linda Ot 577.0 04/09/2015 NETTIE HAHN DO Ot 782.2 04/09/2015 NETTIE HAHN DO Ot V72.84 04/09/2015 MILADYS SAUCEDO, MARISA A Ot 592.0 04/09/2015 MILADYS SAUCEDO, MARISA A Ot V72.84 04/09/2015 MILADYS SAUCEDO, MARISA A Ot 592.0 04/09/2015 Ot 595.9 04/09/2015 Ot V72.84 04/09/2015 MILADYS SAUCEDO, MARISA A Ot 592.0 04/09/2015 MILADYS SAUCEDO, MARISA A Ot 592.0 04/09/2015 MILADYS SAUCEDO, MARISA A Ot V72.84 04/09/2015 MILADYS SAUCEDO, MARISA A Ot 592.0 04/09/2015 MILADYS SAUCEDO, MARISA A Ot V45.89 04/09/2015 KEZIA SAUCEDO, SABIHA Glaser Ot 722.51 04/09/2015 Ot M54.9 04/09/2015 Ot M79.89 04/11/2015 Ot M54.9 04/11/2015 Ot M79.89 04/20/2015 Ot M54.9 04/20/2015 Ot M79.89 04/20/2015 Ot M54.9 04/20/2015 Ot M79.89 04/20/2015 KEZIA SAUCEDO, SABIHA Glaser Ot 722.51 05/01/2015 KEZIA SAUCEDO, SABIHA Glaser Ot 722.51 05/01/2015 Ot M54.9 05/01/2015 Ot M79.89 08/03/2015 YASSINE KNOX VALIDATION ANALYST Ot 611.72 08/03/2015 ROMMEL MCMILLAN GUN EXAMINER Ot 611.71 08/03/2015 MILADYS SAUCEDO, MARISA A Ot 592.0 08/03/2015 MILADYS SAUCEDO, MARISA A Ot 789.00 08/03/2015 MILADYS SAUCEDO, MARISA A Ot 592.9 08/03/2015 MILADYS SAUCEDO, MARISA A Ot 592.0 08/03/2015 MILADYS SAUCEDO, MARISA A Ot V72.84 08/03/2015 MARSHAL SAUCEDO, BRODY Linda Ot 577.0 08/03/2015 NETTIE HAHN DO Ot 782.2 08/03/2015 NETTIE HAHN DO Ot V72.84 08/03/2015 MILADYS SAUCEDO, MARISA A Ot 592.0 08/03/2015 MILADYS SAUCEDO, MARISA A Ot V72.84 08/03/2015 MILADYS SAUCEDO, MARISA A Ot 592.0 08/03/2015 Ot 595.9 08/03/2015 Ot V72.84 08/03/2015 MILADYS SAUCEDO, MARISA A Ot 592.0 08/03/2015 MILADYS SAUCEDO, MARISA A Ot 592.0 08/03/2015 MILADYS SAUCEDO, MARISA A Ot V72.84 08/03/2015 MILADYS SAUCEDO, MARISA A Ot 592.0 08/03/2015 MILADYS SAUCEDO, MARISA A Ot V45.89 08/03/2015 KEZIA SAUCEDO, SABIHA Glaser Ot 722.51 08/03/2015 Ot M54.9 08/03/2015 Ot M79.89 08/14/2015 KEZIA SAUCEDO, SABIHA Glaser Ot Z12.31 09/11/2015 Ot R92.8 09/12/2015 ZOFIA MORA DO Ot G89.29 OTHER CHRONIC PAIN 09/12/2015 ZOFIA MORA DO Ot M54.5 LOW BACK PAIN 09/12/2015 ZOFIA MORA DO Ot N39.0 URINARY TRACT INFECTION, SITE NOT SPECIF 09/21/2015 ZOFIA MORA DO Ot G89.29 OTHER CHRONIC PAIN 09/21/2015 ZOFIA MORA DO Ot M54.5 LOW BACK PAIN 09/21/2015 MORGAN ZOFIA DE LA TORRE Ot N39.0 URINARY TRACT INFECTION, SITE NOT SPECIF 09/30/2015 ZOFIA MORA DO Ot 311 DEPRESSIVE DISORDER NEC 09/30/2015 ZOFIA MORA DO Ot 345.90 EPILEPSY UNSPEC W/O MENTION INTRACTABLE 09/30/2015 MORGAN ZOFIA DE LA TORRE Ot 530.81 ESOPHAGEAL REFLUX 09/30/2015 MORGAN ZOFIA DE LA TORRE Ot 591 HYDRONEPHROSIS 09/30/2015 MORGAN ZOFIA DE LA TORRE Ot 592.1 CALCULUS OF URETER 09/30/2015 MORGAN ZOFIA DE LA TORRE Ot 599.0 URIN TRACT INFECTION NOS 09/30/2015 MORGAN ZOFIA DE LA TORRE Ot 599.70 HEMATURIA, UNSPECIFIED 09/30/2015 MORGAN ZOFIA DE LA TORRE Ot 729.1 MYALGIA AND MYOSITIS NOS 10/13/2015 YASSINE KNOX VALIDATION ANALYST Ot 611.72 LUMP OR MASS IN BREAST 10/13/2015 ROMMEL MCMILLAN APRN Ot 611.71 MASTODYNIA 10/13/2015 MARISA HOOK MD Ot 592.0 CALCULUS OF KIDNEY 10/13/2015 MILADYS SAUCEDO, MARISA Gant Ot 789.00 ABDOMINAL PAIN, UNSPECIFIED SITE 10/13/2015 MARISA HOOK MD Ot 592.9 URINARY CALCULUS NOS 10/13/2015 MARISA HOOK MD Ot 592.0 CALCULUS OF KIDNEY 10/13/2015 MARISA HOOK MD Ot V72.84 EXAM PRE-OPERATIVE NOS 10/13/2015 MARSHAL SAUCEDO, BRODY Linda Ot 577.0 ACUTE PANCREATITIS 10/13/2015 NETTIE HAHN DO Ot 782.2 LOCAL SUPRFICIAL SWELLNG 10/13/2015 NETTIE HAHN DO Ot V72.84 EXAM PRE-OPERATIVE NOS 10/13/2015 MARISA HOOK MD Ot 592.0 CALCULUS OF KIDNEY 10/13/2015 MARISA HOOK MD Ot V72.84 EXAM PRE-OPERATIVE NOS 10/13/2015 MARISA HOOK MD Ot 592.0 CALCULUS OF KIDNEY 10/13/2015 Ot 595.9 CYSTITIS NOS 10/13/2015 Ot V72.84 EXAM PRE- OPERATIVE NOS 10/13/2015 MARISA HOOK MD Ot 592.0 CALCULUS OF KIDNEY 10/13/2015 MARISA HOOK MD Ot 592.0 CALCULUS OF KIDNEY 10/13/2015 MARISA HOOK MD Ot V72.84 EXAM PRE-OPERATIVE NOS 10/13/2015 MARISA HOOK MD Ot 592.0 CALCULUS OF KIDNEY 10/13/2015 MARISA HOOK MD Ot V45.89 POSTSURGICAL STATES NEC 10/13/2015 KEZIA SAUCEDO, SABIHA Glaser Ot 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 10/13/2015 Ot M54.9 DORSALGIA, UNSPECIFIED 10/13/2015 Ot M79.89 OTHER SPECIFIED SOFT TISSUE DISORDERS 10/13/2015 SABIHA MAST MD Ot Z12.31 ENCNTR SCREEN MAMMOGRAM FOR MALIGNANT NE 10/13/2015 Ot R92.8 OTH ABN AND INCONCLUSIVE FINDINGS ON DX 10/13/2015 MAGGIE PETER MD Ot N39.0 URINARY TRACT INFECTION, SITE NOT SPECIF 10/15/2015 MAGGIE PETER MD Ot N39.0 URINARY TRACT INFECTION, SITE NOT SPECIF 10/22/2015 LAURA FINCH GUN EXAMINER Ot G89.29 OTHER CHRONIC PAIN 10/22/2015 LAURA FINCH GUN EXAMINER Ot K42.9 UMBILICAL HERNIA WITHOUT OBSTRUCTION OR 10/22/2015 LAURA FINCH GUN EXAMINER Ot M54.5 LOW BACK PAIN 10/22/2015 LAURA FINCH GUN EXAMINER Ot N20.0 CALCULUS OF KIDNEY 10/24/2015 LAURA FINCH GUN EXAMINER Ot G89.29 OTHER CHRONIC PAIN 10/24/2015 LAURA FINCH GUN EXAMINER Ot K42.9 UMBILICAL HERNIA WITHOUT OBSTRUCTION OR 10/24/2015 LAURA FINCH GUN EXAMINER Ot M54.5 LOW BACK PAIN 10/24/2015 LAURA FINCH GUN EXAMINER Ot N20.0 CALCULUS OF KIDNEY 10/24/2015 YASSINE KNOX VALIDATION ANALYST Ot 611.72 LUMP OR MASS IN BREAST 10/24/2015 ROMMEL MCMILLAN GUN EXAMINER Ot 611.71 MASTODYNIA 10/24/2015 MARISA HOOK MD Ot 592.0 CALCULUS OF KIDNEY 10/24/2015 MARISA HOOK MD Ot 789.00 ABDOMINAL PAIN, UNSPECIFIED SITE 10/24/2015 MARISA HOOK MD Ot 592.9 URINARY CALCULUS NOS 10/24/2015 MARISA HOOK MD Ot 592.0 CALCULUS OF KIDNEY 10/24/2015 MARISA HOOK MD Ot V72.84 EXAM PRE-OPERATIVE NOS 10/24/2015 MARSHAL SAUCEDO, BRODY Linda Ot 577.0 ACUTE PANCREATITIS 10/24/2015 HAHN NETTIE DE LA TORRE Ot 782.2 LOCAL SUPRFICIAL SWELLNG 10/24/2015 NETTIE HAHN DO Ot V72.84 EXAM PRE-OPERATIVE NOS 10/24/2015 MARISA HOOK MD Ot 592.0 CALCULUS OF KIDNEY 10/24/2015 MARISA HOOK MD Ot V72.84 EXAM PRE-OPERATIVE NOS 10/24/2015 MARISA HOOK MD Ot 592.0 CALCULUS OF KIDNEY 10/24/2015 Ot 595.9 CYSTITIS NOS 10/24/2015 Ot V72.84 EXAM PRE- OPERATIVE NOS 10/24/2015 MARISA HOOK MD Ot 592.0 CALCULUS OF KIDNEY 10/24/2015 MARISA HOOK MD Ot 592.0 CALCULUS OF KIDNEY 10/24/2015 MARISA HOOK MD Ot V72.84 EXAM PRE-OPERATIVE NOS 10/24/2015 MARISA HOOK MD Ot 592.0 CALCULUS OF KIDNEY 10/24/2015 MARISA HOOK MD Ot V45.89 POSTSURGICAL STATES NEC 10/24/2015 SABIHA MAST MD Ot 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 10/24/2015 Ot M54.9 DORSALGIA, UNSPECIFIED 10/24/2015 Ot M79.89 OTHER SPECIFIED SOFT TISSUE DISORDERS 10/24/2015 SABIHA MAST MD Ot Z12.31 ENCNTR SCREEN MAMMOGRAM FOR MALIGNANT NE 10/24/2015 Ot R92.8 OTH ABN AND INCONCLUSIVE FINDINGS ON DX 10/31/2015 ZOFIA MORA DO Ot 311 DEPRESSIVE DISORDER NEC 10/31/2015 ZOFIA MORA DO Ot 345.90 EPILEPSY UNSPEC W/O MENTION INTRACTABLE 10/31/2015 MORGAN DO, ZOFIA K Ot 530.81 ESOPHAGEAL REFLUX 10/31/2015 MORGAN DO, ZOFIA K Ot 591 HYDRONEPHROSIS 10/31/2015 MORGAN DO, ZOFIA K Ot 592.1 CALCULUS OF URETER 10/31/2015 MORGAN DO, ZOFIA K Ot 599.0 URIN TRACT INFECTION NOS 10/31/2015 MORGAN DO, ZOFIA K Ot 599.70 HEMATURIA, UNSPECIFIED 10/31/2015 MORGAN DO, ZOFIA K Ot 729.1 MYALGIA AND MYOSITIS NOS 12/07/2015 LUCIANO SAUCEDO, ZABRINA Cha Ot N20.2 CALCULUS OF KIDNEY WITH CALCULUS OF URET 12/07/2015 YASSINE KNOX VALIDATION ANALYST Ot 611.72 LUMP OR MASS IN BREAST 12/07/2015 ROMMEL MCMILLAN APRN Ot 611.71 MASTODYNIA 12/07/2015 MILADYS SAUCEDO, MARISA Gant Ot 592.0 CALCULUS OF KIDNEY 12/07/2015 MILADYS SAUCEDO, MARISA Gant Ot 789.00 ABDOMINAL PAIN, UNSPECIFIED SITE 12/07/2015 MARISA HOOK MD Ot 592.9 URINARY CALCULUS NOS 12/07/2015 MARISA HOOK MD Ot 592.0 CALCULUS OF KIDNEY 12/07/2015 MARISA HOOK MD Ot V72.84 EXAM PRE-OPERATIVE NOS 12/07/2015 MARSHAL SAUCEDO, BRODY Linda Ot 577.0 ACUTE PANCREATITIS 12/07/2015 NETTIE HAHN DO Ot 782.2 LOCAL SUPRFICIAL SWELLNG 12/07/2015 NETTIE HANH DO Ot V72.84 EXAM PRE-OPERATIVE NOS 12/07/2015 MARISA HOOK MD Ot 592.0 CALCULUS OF KIDNEY 12/07/2015 MARISA HOOK MD Ot V72.84 EXAM PRE-OPERATIVE NOS 12/07/2015 MARISA HOOK MD Ot 592.0 CALCULUS OF KIDNEY 12/07/2015 Ot 595.9 CYSTITIS NOS 12/07/2015 Ot V72.84 EXAM PRE- OPERATIVE NOS 12/07/2015 MARISA HOOK MD Ot 592.0 CALCULUS OF KIDNEY 12/07/2015 MILADYS SAUCEDO, MARISA Gant Ot 592.0 CALCULUS OF KIDNEY 12/07/2015 MILADYS SAUCEDO, MARISA Gant Ot V72.84 EXAM PRE-OPERATIVE NOS 12/07/2015 MILADYS SAUCEDO, MARISA Gant Ot 592.0 CALCULUS OF KIDNEY 12/07/2015 MILADYS SAUCEDO, MARISA Gant Ot V45.89 POSTSURGICAL STATES NEC 12/07/2015 KEZIA SAUCEDO, SABIHA Glaser Ot 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 12/07/2015 Ot M54.9 DORSALGIA, UNSPECIFIED 12/07/2015 Ot M79.89 OTHER SPECIFIED SOFT TISSUE DISORDERS 12/07/2015 KEZIA SAUCEDO, SABIHA Glaser Ot Z12.31 ENCNTR SCREEN MAMMOGRAM FOR MALIGNANT NE 12/07/2015 Ot R92.8 OTH ABN AND INCONCLUSIVE FINDINGS ON DX 12/07/2015 LUCIANO SAUCEDO, ZABRINA Cha Ot N20.2 CALCULUS OF KIDNEY WITH CALCULUS OF URET 12/10/2015 Ot R92.8 OTH ABN AND INCONCLUSIVE FINDINGS ON DX 12/20/2015 Ot R92.8 OTH ABN AND INCONCLUSIVE FINDINGS ON DX 01/03/2016 ROBI MAGAÑA MD Ot M54.5 LOW BACK PAIN 01/03/2016 ROBI MAGAÑA MD Ot M62.830 MUSCLE SPASM OF BACK 01/04/2016 ROBI MAGAÑA MD Ot M54.5 LOW BACK PAIN 01/04/2016 ROBI MAGAÑA MD Ot M62.830 MUSCLE SPASM OF BACK 01/09/2016 ROBI MAGAÑA MD Ot M54.5 LOW BACK PAIN 01/09/2016 ROBI MAGAÑA MD Ot M62.830 MUSCLE SPASM OF BACK 01/31/2016 ZOFIA MORA DO Ot 311 DEPRESSIVE DISORDER NEC 01/31/2016 ZOFIA MORA DO Ot 345.90 EPILEPSY UNSPEC W/O MENTION INTRACTABLE 01/31/2016 ZOFIA MORA DO Ot 530.81 ESOPHAGEAL REFLUX 01/31/2016 ZOFIA MORA DO Ot 591 HYDRONEPHROSIS 01/31/2016 ZOFIA MORA DO Ot 592.1 CALCULUS OF URETER 01/31/2016 ZOFIA MORA DO Ot 599.0 URIN TRACT INFECTION NOS 01/31/2016 ZOFIA MORA DO Ot 599.70 HEMATURIA, UNSPECIFIED 01/31/2016 ZOFIA MORA DO Ot 729.1 MYALGIA AND MYOSITIS NOS 02/01/2016 YASSINE KNOX VALIDATION ANALYST Ot 611.72 LUMP OR MASS IN BREAST 02/01/2016 ROMMEL MCMILLAN MAIKOL Ot 611.71 MASTODYNIA 02/01/2016 MARISA HOOK MD Ot 592.0 CALCULUS OF KIDNEY 02/01/2016 MARISA HOOK MD Ot 789.00 ABDOMINAL PAIN, UNSPECIFIED SITE 02/01/2016 MARISA HOOK MD Ot 592.9 URINARY CALCULUS NOS 02/01/2016 MARISA HOOK MD Ot 592.0 CALCULUS OF KIDNEY 02/01/2016 MILADYS SAUCEDO, MARISA Gant Ot V72.84 EXAM PRE-OPERATIVE NOS 02/01/2016 MARSHAL SAUCEDO, BRODY Linda Ot 577.0 ACUTE PANCREATITIS 02/01/2016 NETTIE HAHN DO Ot 782.2 LOCAL SUPRFICIAL SWELLNG 02/01/2016 NETTIE HAHN DO Ot V72.84 EXAM PRE-OPERATIVE NOS 02/01/2016 MARISA HOOK MD Ot 592.0 CALCULUS OF KIDNEY 02/01/2016 MARISA HOOK MD Ot V72.84 EXAM PRE-OPERATIVE NOS 02/01/2016 MARISA HOOK MD Ot 592.0 CALCULUS OF KIDNEY 02/01/2016 Ot 595.9 CYSTITIS NOS 02/01/2016 Ot V72.84 EXAM PRE- OPERATIVE NOS 02/01/2016 MARISA HOOK MD Ot 592.0 CALCULUS OF KIDNEY 02/01/2016 MARISA HOOK MD Ot 592.0 CALCULUS OF KIDNEY 02/01/2016 MARISA HOOK MD Ot V72.84 EXAM PRE-OPERATIVE NOS 02/01/2016 MARISA HOOK MD Ot 592.0 CALCULUS OF KIDNEY 02/01/2016 MARISA HOOK MD Ot V45.89 POSTSURGICAL STATES NEC 02/01/2016 KEZIA SAUCEDO, SABIHA Glaser Ot 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 02/01/2016 Ot M54.9 DORSALGIA, UNSPECIFIED 02/01/2016 Ot M79.89 OTHER SPECIFIED SOFT TISSUE DISORDERS 02/01/2016 KEZIA SAUCEDO, SABIHA Glaser Ot Z12.31 ENCNTR SCREEN MAMMOGRAM FOR MALIGNANT NE 02/01/2016 Ot R92.8 OTH ABN AND INCONCLUSIVE FINDINGS ON DX 02/01/2016 BENJI LOMBARDO MD Ot 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, T 02/01/2016 BENJI LOMBARDO MD Ot Z79.899 OTHER FIELD ASSOCIATE (CURRENT) DRUG THERAPY 02/14/2016 BENJI LOMBARDO MD Ot 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, T 02/14/2016 BENJI LOMBARDO MD Ot Z79.899 OTHER FIELD ASSOCIATE (CURRENT) DRUG THERAPY 02/15/2016 BENJI LOMBARDO MD Ot 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, T 02/15/2016 BENJI LOMBARDO MD Ot Z79.899 OTHER FIELD ASSOCIATE (CURRENT) DRUG THERAPY 03/03/2016 YASSINE KNOX VALIDATION ANALYST Ot 611.72 LUMP OR MASS IN BREAST 03/03/2016 ROMMEL MCMILLAN GUN EXAMINER Ot 611.71 MASTODYNIA 03/03/2016 MARISA HOOK MD Ot 592.0 CALCULUS OF KIDNEY 03/03/2016 MARISA HOOK MD Ot 789.00 ABDOMINAL PAIN, UNSPECIFIED SITE 03/03/2016 MARISA HOOK MD Ot 592.9 URINARY CALCULUS NOS 03/03/2016 MARISA HOOK MD Ot 592.0 CALCULUS OF KIDNEY 03/03/2016 MARISA HOOK MD Ot V72.84 EXAM PRE-OPERATIVE NOS 03/03/2016 MARSHAL SAUCEDO, BRODY Linda Ot 577.0 ACUTE PANCREATITIS 03/03/2016 NETTIE HAHN DO Ot 782.2 LOCAL SUPRFICIAL SWELLNG 03/03/2016 NETTIE HAHN DO Ot V72.84 EXAM PRE-OPERATIVE NOS 03/03/2016 MARISA HOOK MD Ot 592.0 CALCULUS OF KIDNEY 03/03/2016 MARISA HOOK MD Ot V72.84 EXAM PRE-OPERATIVE NOS 03/03/2016 MARISA HOOK MD A Ot 592.0 CALCULUS OF KIDNEY 03/03/2016 Ot 595.9 CYSTITIS NOS 03/03/2016 Ot V72.84 EXAM PRE- OPERATIVE NOS 03/03/2016 MILADYS SAUCEDO, MARISA Gant Ot 592.0 CALCULUS OF KIDNEY 03/03/2016 MILADYS SAUCEDO, MARISA Gant Ot 592.0 CALCULUS OF KIDNEY 03/03/2016 MARISA HOOK MD Ot V72.84 EXAM PRE-OPERATIVE NOS 03/03/2016 MILADYS SAUCEDO, MARISA Gant Ot 592.0 CALCULUS OF KIDNEY 03/03/2016 MILADYS SAUCEDO, MARISA Gant Ot V45.89 POSTSURGICAL STATES NEC 03/03/2016 KEZIA SAUCEDO, SABIHA Glaser Ot 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 03/03/2016 Ot M54.9 DORSALGIA, UNSPECIFIED 03/03/2016 Ot M79.89 OTHER SPECIFIED SOFT TISSUE DISORDERS 03/03/2016 SABIHA MAST MD Ot Z12.31 ENCNTR SCREEN MAMMOGRAM FOR MALIGNANT NE 03/03/2016 Ot R92.8 OTH ABN AND INCONCLUSIVE FINDINGS ON DX 03/03/2016 BENJI LOMBARDO MD Ot 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, T 03/03/2016 BENJI LOMBARDO MD Ot Z79.899 OTHER CARE HOME (CURRENT) DRUG THERAPY 03/11/2016 BENJI LOMBARDO MD Ot 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, T 03/11/2016 BENJI LOMBARDO MD Ot Z79.899 OTHER FIELD ASSOCIATE (CURRENT) DRUG THERAPY 03/24/2016 ZABRINA WOLF MD Ot G40.909 EPILEPSY, UNSP, NOT INTRACTABLE, WITHOUT 03/24/2016 ZABRINA WOLF MD Ot I10 ESSENTIAL (PRIMARY) HYPERTENSION 03/24/2016 ZABRINA WOLF MD Ot Z79.899 OTHER FIELD ASSOCIATE (CURRENT) DRUG THERAPY 03/26/2016 ZABRINA WOLF MD Ot G40.909 EPILEPSY, UNSP, NOT INTRACTABLE, WITHOUT 03/26/2016 ZABRINA WOLF MD Ot I10 ESSENTIAL (PRIMARY) HYPERTENSION 03/26/2016 ZABRINA WOLF MD Ot Z79.899 OTHER CARE HOME (CURRENT) DRUG THERAPY 03/27/2016 BENJI LOMBARDO MD Ot 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, T 03/27/2016 BENJI LOMBARDO MD Ot Z79.899 OTHER FIELD ASSOCIATE (CURRENT) DRUG THERAPY 04/16/2016 SABIHA MAST MD Ot R92.8 OTH ABN AND INCONCLUSIVE FINDINGS ON DX 04/28/2016 SABIHA MAST MD Ot R92.8 OTH ABN AND INCONCLUSIVE FINDINGS ON DX 05/21/2016 SABIHA MAST MD Ot R92.8 OTH ABN AND INCONCLUSIVE FINDINGS ON DX 06/01/2016 MORGAN DO, ZOFIA K Ot 311 DEPRESSIVE DISORDER NEC 06/01/2016 MORGAN DO, ZOFIA K Ot 345.90 EPILEPSY UNSPEC W/O MENTION INTRACTABLE 06/01/2016 MORGAN DO, ZOFIA K Ot 530.81 ESOPHAGEAL REFLUX 06/01/2016 MORGAN DO, ZOFIA K Ot 591 HYDRONEPHROSIS 06/01/2016 MORGAN DO, ZOFIA K Ot 592.1 CALCULUS OF URETER 06/01/2016 MORGAN DO, ZOFIA K Ot 599.0 URIN TRACT INFECTION NOS 06/01/2016 MORGAN DO, ZOFIA K Ot 599.70 HEMATURIA, UNSPECIFIED 06/01/2016 MORGAN DO, ZOFIA K Ot 729.1 MYALGIA AND MYOSITIS NOS 06/07/2016 MAYRA QUINONES Ot I10 ESSENTIAL (PRIMARY) HYPERTENSION 06/07/2016 MAYRA QUINONES Ot N20.0 CALCULUS OF KIDNEY 06/07/2016 MAYRA QUINONES Ot R30.0 DYSURIA 06/07/2016 MAYRA QUINONES Ot Z79.899 OTHER CARE HOME (CURRENT) DRUG THERAPY 06/09/2016 MAYRA QUINONES Ot I10 ESSENTIAL (PRIMARY) HYPERTENSION 06/09/2016 MAYRA QUINONES Ot N20.0 CALCULUS OF KIDNEY 06/09/2016 MAYRA QUINONES Ot R30.0 DYSURIA 06/09/2016 MAYRA QUINONES Ot Z79.899 OTHER CARE HOME (CURRENT) DRUG THERAPY 06/10/2016 MARISA HOOK MD Ot N30.10 INTERSTITIAL CYSTITIS (CHRONIC) WITHOUT 06/10/2016 MARISA HOOK MD Ot Z01.818 ENCOUNTER FOR OTHER PREPROCEDURAL EXAMIN 06/11/2016 MARISA HOOK MD, Ot N30.10 INTERSTITIAL CYSTITIS (CHRONIC) WITHOUT 06/11/2016 MARISA HOOK MD, Ot N35.9 URETHRAL STRICTURE, UNSPECIFIED 06/11/2016 MARISA HOOK MD Ot Z11.2 ENCOUNTER FOR SCREENING FOR OTHER BACTER 06/12/2016 MARISA HOOK MD, Ot N30.10 INTERSTITIAL CYSTITIS (CHRONIC) WITHOUT 06/12/2016 MARISA HOOK MD, Ot N35.9 URETHRAL STRICTURE, UNSPECIFIED 06/12/2016 MARISA HOOK MD, Ot Z11.2 ENCOUNTER FOR SCREENING FOR OTHER BACTER 06/13/2016 MAYRA QUINONES Ot I10 ESSENTIAL (PRIMARY) HYPERTENSION 06/13/2016 MAYRA QUINONES Ot N20.0 CALCULUS OF KIDNEY 06/13/2016 MAYRA QUINONES Ot R30.0 DYSURIA 06/13/2016 MAYRA QUINONES Ot Z79.899 OTHER FIELD ASSOCIATE (CURRENT) DRUG THERAPY 06/17/2016 MARISA HOOK MD Ot N30.10 INTERSTITIAL CYSTITIS (CHRONIC) WITHOUT 06/17/2016 MARISA HOOK MD Ot N35.9 URETHRAL STRICTURE, UNSPECIFIED 06/17/2016 MARISA HOOK MD Ot Z11.2 ENCOUNTER FOR SCREENING FOR OTHER BACTER 06/30/2016 ARMINDA FLEMING Ot 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, 07/18/2016 ARMINDA FLEMING Ot 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, 07/23/2016 ARMINDA FLEMING Ot 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, 07/30/2016 Ot 592.1 CALCULUS OF URETER 07/30/2016 Ot 789.09 08/06/2016 ARMINDA FLEMING Ot 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, 09/29/2016 Ot 592.1 CALCULUS OF URETER 09/29/2016 Ot 789.09 10/30/2016 ZOFIA MORA DO Ot 311 DEPRESSIVE DISORDER NEC 10/30/2016 ZOFIA MORA DO Ot 345.90 EPILEPSY UNSPEC W/O MENTION INTRACTABLE 10/30/2016 MORGAN DO, ZOFIA K Ot 530.81 ESOPHAGEAL REFLUX 10/30/2016 MORGAN DO, ZOFIA K Ot 591 HYDRONEPHROSIS 10/30/2016 MORGAN DO, ZOFIA K Ot 592.1 CALCULUS OF URETER 10/30/2016 MORGAN DO, ZOFIA K Ot 599.0 URIN TRACT INFECTION NOS 10/30/2016 MORGAN DO, ZOFIA K Ot 599.70 HEMATURIA, UNSPECIFIED 10/30/2016 MORGAN DO, ZOFIA K Ot 729.1 MYALGIA AND MYOSITIS NOS 02/23/2017 YASSINE KNOX VALIDATION ANALYST Ot 611.72 LUMP OR MASS IN BREAST 02/23/2017 ROMMEL MCMILLAN GUN EXAMINER Ot 611.71 MASTODYNIA 02/23/2017 MARISA HOOK MD Ot 592.0 CALCULUS OF KIDNEY 02/23/2017 MILADYS SAUCEDO, MARISA Gant Ot 789.00 ABDOMINAL PAIN, UNSPECIFIED SITE 02/23/2017 MARISA HOOK MD Ot 592.9 URINARY CALCULUS NOS 02/23/2017 MARISA HOOK MD Ot 592.0 CALCULUS OF KIDNEY 02/23/2017 MARISA HOOK MD Ot V72.84 EXAM PRE-OPERATIVE NOS 02/23/2017 MARSHAL SAUCEDO, BRODY Linda Ot 577.0 ACUTE PANCREATITIS 02/23/2017 NETTIE HAHN DO Ot 782.2 LOCAL SUPRFICIAL SWELLNG 02/23/2017 NETTIE HAHN DO Ot V72.84 EXAM PRE-OPERATIVE NOS 02/23/2017 MARISA HOOK MD Ot 592.0 CALCULUS OF KIDNEY 02/23/2017 MARISA HOOK MD Ot V72.84 EXAM PRE-OPERATIVE NOS 02/23/2017 MARISA HOOK MD Ot 592.0 CALCULUS OF KIDNEY 02/23/2017 Ot 595.9 CYSTITIS NOS 02/23/2017 Ot V72.84 EXAM PRE- OPERATIVE NOS 02/23/2017 MARISA HOOK MD Ot 592.0 CALCULUS OF KIDNEY 02/23/2017 MARISA HOOK MD Ot 592.0 CALCULUS OF KIDNEY 02/23/2017 MARISA HOOK MD Ot V72.84 EXAM PRE-OPERATIVE NOS 02/23/2017 MILADYS SAUCEDO, MARISA Gant Ot 592.0 CALCULUS OF KIDNEY 02/23/2017 MARISA HOOK MD Ot V45.89 POSTSURGICAL STATES NEC 02/23/2017 SABIHA MATS MD Ot 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 02/23/2017 Ot M54.9 DORSALGIA, UNSPECIFIED 02/23/2017 Ot M79.89 OTHER SPECIFIED SOFT TISSUE DISORDERS 02/23/2017 SABIHA MAST MD Ot Z12.31 ENCNTR SCREEN MAMMOGRAM FOR MALIGNANT NE 02/23/2017 Ot R92.8 OTH ABN AND INCONCLUSIVE FINDINGS ON DX 02/23/2017 SABIHA MAST MD Ot R92.8 OTH ABN AND INCONCLUSIVE FINDINGS ON DX 02/23/2017 ADOLFO SAUCEDO, ANGEL Saba Ot F32.9 MAJOR DEPRESSIVE DISORDER, SINGLE EPISOD 02/23/2017 ANGEL MATA MD Ot F41.9 ANXIETY DISORDER, UNSPECIFIED 02/23/2017 ANGEL MATA MD Ot G40.909 EPILEPSY, UNSP, NOT INTRACTABLE, WITHOUT 02/23/2017 ANGEL MATA MD Ot G43.909 MIGRAINE, UNSP, NOT INTRACTABLE, WITHOUT 02/23/2017 ANGEL MATA MD Ot G47.30 SLEEP APNEA, UNSPECIFIED 02/23/2017 ANGEL MATA MD Ot I10 ESSENTIAL (PRIMARY) HYPERTENSION 02/23/2017 ANGEL MATA MD Ot J45.909 UNSPECIFIED ASTHMA, UNCOMPLICATED 02/23/2017 ANGEL MATA MD Ot K21.9 GASTRO-ESOPHAGEAL REFLUX DISEASE WITHOUT 02/23/2017 ANGEL MATA MD Ot M46.1 SACROILIITIS, NOT ELSEWHERE CLASSIFIED 02/23/2017 ANGEL MATA MD Ot M79.604 PAIN IN RIGHT LEG 02/23/2017 ANGEL MATA MD Ot N39.0 URINARY TRACT INFECTION, SITE NOT SPECIF 02/23/2017 ANGEL MATA MD Ot R10.10 UPPER ABDOMINAL PAIN, UNSPECIFIED 02/23/2017 ANGEL MATA MD, Ot Z82.49 FAMILY HX OF ISCHEM HEART DIS AND OTH DI 02/23/2017 ANGEL MATA MD, Ot 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 02/23/2017 ANGEL MATA MD, Ot Z87.42 PERSONAL HISTORY OF OTH DISEASES OF THE 02/23/2017 ANGEL MATA MD, Ot Z87.442 PERSONAL HISTORY OF URINARY CALCULI 02/23/2017 ANGEL MATA MD, Ot Z90.49 ACQUIRED ABSENCE OF OTHER SPECIFIED PART 02/23/2017 ANGEL MATA MD, Ot Z90.710 ACQUIRED ABSENCE OF BOTH CERVIX AND UTER 02/23/2017 ANGEL MATA MD, Ot Z98.51 TUBAL LIGATION STATUS 02/25/2017 ANGEL MATA MD, Ot F32.9 MAJOR DEPRESSIVE DISORDER, SINGLE EPISOD 02/25/2017 ANGEL MATA MD, Ot F41.9 ANXIETY DISORDER, UNSPECIFIED 02/25/2017 ANGEL MATA MD Ot G40.909 EPILEPSY, UNSP, NOT INTRACTABLE, WITHOUT 02/25/2017 ANGEL MATA MD, Ot G43.909 MIGRAINE, UNSP, NOT INTRACTABLE, WITHOUT 02/25/2017 ANGEL MATA MD, Ot G47.30 SLEEP APNEA, UNSPECIFIED 02/25/2017 ANGEL MATA MD Ot I10 ESSENTIAL (PRIMARY) HYPERTENSION 02/25/2017 ANGEL MATA MD, Ot J45.909 UNSPECIFIED ASTHMA, UNCOMPLICATED 02/25/2017 ANGEL MATA MD, Ot K21.9 GASTRO-ESOPHAGEAL REFLUX DISEASE WITHOUT 02/25/2017 ANGEL MATA MD, Ot M46.1 SACROILIITIS, NOT ELSEWHERE CLASSIFIED 02/25/2017 ANGEL MATA MD Ot M79.604 PAIN IN RIGHT LEG 02/25/2017 ANGEL MATA MD Ot N39.0 URINARY TRACT INFECTION, SITE NOT SPECIF 02/25/2017 BRUEGGEMANN MD, ANGEL T Ot R10.10 UPPER ABDOMINAL PAIN, UNSPECIFIED 02/25/2017 ANGEL MATA MD Ot Z82.49 FAMILY HX OF ISCHEM HEART DIS AND OTH DI 02/25/2017 ANGEL MATA MD Ot 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 02/25/2017 ANGEL MATA MD Ot Z87.42 PERSONAL HISTORY OF OTH DISEASES OF THE 02/25/2017 ANGEL MATA MD Ot Z87.442 PERSONAL HISTORY OF URINARY CALCULI 02/25/2017 ANGEL AMTA MD, Ot Z90.49 ACQUIRED ABSENCE OF OTHER SPECIFIED PART 02/25/2017 ANGEL MATA MD Ot Z90.710 ACQUIRED ABSENCE OF BOTH CERVIX AND UTER 02/25/2017 ANGEL MATA MD Ot Z98.51 TUBAL LIGATION STATUS 03/30/2017 YASSINE KNOX VALIDATION ANALYST Ot 611.72 LUMP OR MASS IN BREAST 03/30/2017 ROMMEL MCMILLAN GUN EXAMINER Ot 611.71 MASTODYNIA 03/30/2017 MARISA HOOK MD Ot 592.0 CALCULUS OF KIDNEY 03/30/2017 MARISA HOOK MD Ot 789.00 ABDOMINAL PAIN, UNSPECIFIED SITE 03/30/2017 MARISA HOOK MD Ot 592.9 URINARY CALCULUS NOS 03/30/2017 MARISA HOOK MD Ot 592.0 CALCULUS OF KIDNEY 03/30/2017 MARISA HOOK MD Ot V72.84 EXAM PRE-OPERATIVE NOS 03/30/2017 MARSHAL SAUCEDO, BRODY Linda Ot 577.0 ACUTE PANCREATITIS 03/30/2017 NETTIE HAHN DO Ot 782.2 LOCAL SUPRFICIAL SWELLNG 03/30/2017 NETTIE HAHN DO Ot V72.84 EXAM PRE-OPERATIVE NOS 03/30/2017 MARISA HOOK MD Ot 592.0 CALCULUS OF KIDNEY 03/30/2017 MARISA HOOK MD Ot V72.84 EXAM PRE-OPERATIVE NOS 03/30/2017 MARISA HOOK MD Ot 592.0 CALCULUS OF KIDNEY 03/30/2017 Ot 595.9 CYSTITIS NOS 03/30/2017 Ot V72.84 EXAM PRE- OPERATIVE NOS 03/30/2017 MILADYS SAUCEDO, MARISA Gant Ot 592.0 CALCULUS OF KIDNEY 03/30/2017 MARISA HOOK MD Ot 592.0 CALCULUS OF KIDNEY 03/30/2017 MARISA HOOK MD Ot V72.84 EXAM PRE-OPERATIVE NOS 03/30/2017 MILADYS SAUCEDO, MARISA Gant Ot 592.0 CALCULUS OF KIDNEY 03/30/2017 MARISA HOOK MD Ot V45.89 POSTSURGICAL STATES NEC 03/30/2017 SABIHA MAST MD Ot 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 03/30/2017 Ot M54.9 DORSALGIA, UNSPECIFIED 03/30/2017 Ot M79.89 OTHER SPECIFIED SOFT TISSUE DISORDERS 03/30/2017 SABIHA MAST MD Ot Z12.31 ENCNTR SCREEN MAMMOGRAM FOR MALIGNANT NE 03/30/2017 Ot R92.8 OTH ABN AND INCONCLUSIVE FINDINGS ON DX 03/30/2017 SABIHA MAST MD Ot R92.8 OTH ABN AND INCONCLUSIVE FINDINGS ON DX 03/31/2017 Anshu NEWBERRY MD Ot R00.2 PALPITATIONS 03/31/2017 Anshu NEWBERRY MD Ot R00.2 PALPITATIONS 04/01/2017 Ot 592.1 CALCULUS OF URETER 04/01/2017 Ot 789.09 04/01/2017 Anshu NEWBERRY MD Ot R00.2 PALPITATIONS 04/09/2017 Anshu NEWBERRY MD Ot E78.5 HYPERLIPIDEMIA, UNSPECIFIED 04/09/2017 Anshu NEWBERRY MD Ot I10 ESSENTIAL (PRIMARY) HYPERTENSION 04/09/2017 Anshu NEWBERRY MD Ot R00.2 PALPITATIONS 04/09/2017 Anshu NEWBERRY MD Ot R06.02 SHORTNESS OF BREATH 04/15/2017 Anshu NEWBERRY MD Ot E78.5 HYPERLIPIDEMIA, UNSPECIFIED 04/15/2017 Anshu NEWBERRY MD Ot I10 ESSENTIAL (PRIMARY) HYPERTENSION 04/15/2017 Anshu NEWBERRY MD Ot R06.02 SHORTNESS OF BREATH 04/17/2017 CONI SAUCEDO M EVIE Ot E78.5 HYPERLIPIDEMIA, UNSPECIFIED 04/17/2017 Anshu NEWBERRY MD Ot I10 ESSENTIAL (PRIMARY) HYPERTENSION 04/17/2017 CONI SAUCEDO M EVIE Ot R00.2 PALPITATIONS 04/17/2017 CONI SAUCEDO M EVIE Ot R06.02 SHORTNESS OF BREATH 04/21/2017 CONI SAUCEDO M EVIE Ot E78.5 HYPERLIPIDEMIA, UNSPECIFIED 04/21/2017 CONI SAUCEDO M EVIE Ot I10 ESSENTIAL (PRIMARY) HYPERTENSION 04/21/2017 Anshu NEWBERRY MD Ot R06.02 SHORTNESS OF BREATH 05/04/2017 Anshu NEWBERRY MD Ot E78.5 HYPERLIPIDEMIA, UNSPECIFIED 05/04/2017 Anshu NEWBERRY MD Ot I10 ESSENTIAL (PRIMARY) HYPERTENSION 05/04/2017 Anshu NEWBERRY MD Ot I73.9 PERIPHERAL VASCULAR DISEASE, UNSPECIFIED 05/04/2017 Anshu NEWBERRY MD Ot R00.2 PALPITATIONS 05/04/2017 Anshu NEWBERRY MD Ot R06.02 SHORTNESS OF BREATH 05/12/2017 Anshu NEWBERRY MD Ot E78.5 HYPERLIPIDEMIA, UNSPECIFIED 05/12/2017 Anshu NEWBERRY MD Ot I10 ESSENTIAL (PRIMARY) HYPERTENSION 05/12/2017 Anshu NEWBERRY MD Ot I73.9 PERIPHERAL VASCULAR DISEASE, UNSPECIFIED 05/12/2017 Anshu NEWBERRY MD Ot R00.2 PALPITATIONS 05/12/2017 CONI SAUCEDO M EVIE Ot R06.02 SHORTNESS OF BREATH 05/14/2017 Anshu NEWBERRY MD Ot E78.5 HYPERLIPIDEMIA, UNSPECIFIED 05/14/2017 Anshu NEWBERRY MD Ot I10 ESSENTIAL (PRIMARY) HYPERTENSION 05/14/2017 Anshu NEWBERRY MD Ot R00.2 PALPITATIONS 05/14/2017 Anshu NEWBERRY MD Ot R06.02 SHORTNESS OF BREATH 05/14/2017 CONI SAUCEDO, Anshu CASE Ot E78.5 HYPERLIPIDEMIA, UNSPECIFIED 05/14/2017 CONI SAUCEDO, Anshu CASE Ot I10 ESSENTIAL (PRIMARY) HYPERTENSION 05/14/2017 CONI SAUCEDO, Anshu CASE Ot R06.02 SHORTNESS OF BREATH 06/11/2017 CONI SAUCEDO, Anshu CASE Ot E78.5 HYPERLIPIDEMIA, UNSPECIFIED 06/11/2017 CONI SAUCEDO, Anshu CASE Ot I10 ESSENTIAL (PRIMARY) HYPERTENSION 06/11/2017 CONI SAUCEDO, Anshu CASE Ot R00.2 PALPITATIONS 06/11/2017 CONI SUACEDO, Anshu CASE Ot R06.02 SHORTNESS OF BREATH 06/11/2017 CONI SAUCEDO, Anshu CASE Ot E78.5 HYPERLIPIDEMIA, UNSPECIFIED 06/11/2017 CONI SAUCEDO, Anshu CASE Ot I10 ESSENTIAL (PRIMARY) HYPERTENSION 06/11/2017 CONI SAUCEDO, Anshu CASE Ot R06.02 SHORTNESS OF BREATH 10/20/2017 JOVANI DO, NETTIE D Ot R19.7 DIARRHEA, UNSPECIFIED 10/20/2017 HAHN DO, NETTIE D Ot Z01.818 ENCOUNTER FOR OTHER PREPROCEDURAL EXAMIN 10/21/2017 HAHN DO, NETTIE D Ot R19.7 DIARRHEA, UNSPECIFIED 10/21/2017 HAHN DO, NETTIE D Ot Z01.818 ENCOUNTER FOR OTHER PREPROCEDURAL EXAMIN 10/21/2017 HAHN DO, NETTIE D Ot R19.7 DIARRHEA, UNSPECIFIED 10/21/2017 HAHN DO, NETTIE D Ot Z01.818 ENCOUNTER FOR OTHER PREPROCEDURAL EXAMIN 10/22/2017 HAHN DO, NETTIE D Ot R19.7 DIARRHEA, UNSPECIFIED 10/22/2017 AHHN DO, NETTIE D Ot Z01.818 ENCOUNTER FOR OTHER PREPROCEDURAL EXAMIN 10/27/2017 HAHN DO, NETTIE D Ot R19.7 DIARRHEA, UNSPECIFIED 10/27/2017 HAHN DO, NETTIE D Ot Z01.818 ENCOUNTER FOR OTHER PREPROCEDURAL EXAMIN 10/27/2017 YASSINE KNOX J [facility] Ot 611.72 LUMP OR MASS IN BREAST 10/27/2017 ROMMEL MCMILLAN GUN EXAMINER Ot 611.71 MASTODYNIA 10/27/2017 MARISA HOOK MD Ot 592.0 CALCULUS OF KIDNEY 10/27/2017 MARISA HOOK MD Ot 789.00 ABDOMINAL PAIN, UNSPECIFIED SITE 10/27/2017 MARISA HOOK MD Ot 592.9 URINARY CALCULUS NOS 10/27/2017 MARISA HOOK MD Ot 592.0 CALCULUS OF KIDNEY 10/27/2017 MARISA HOOK MD Ot V72.84 EXAM PRE-OPERATIVE NOS 10/27/2017 MARSHAL SAUCEDO, BRODY N Ot 577.0 ACUTE PANCREATITIS 10/27/2017 NETTIE HAHN DO Ot 782.2 LOCAL SUPRFICIAL SWELLNG 10/27/2017 NETTIE HAHN DO Ot V72.84 EXAM PRE-OPERATIVE NOS 10/27/2017 MARISA HOOK MD Ot 592.0 CALCULUS OF KIDNEY 10/27/2017 MARISA HOOK MD Ot V72.84 EXAM PRE-OPERATIVE NOS 10/27/2017 MARISA HOOK MD Ot 592.0 CALCULUS OF KIDNEY 10/27/2017 Ot 595.9 CYSTITIS NOS 10/27/2017 Ot V72.84 EXAM PRE- OPERATIVE NOS 10/27/2017 MARISA HOOK MD Ot 592.0 CALCULUS OF KIDNEY 10/27/2017 MARISA HOOK MD Ot 592.0 CALCULUS OF KIDNEY 10/27/2017 MARISA HOOK MD Ot V72.84 EXAM PRE-OPERATIVE NOS 10/27/2017 MARISA HOOK MD Ot 592.0 CALCULUS OF KIDNEY 10/27/2017 MARISA HOOK MD Ot V45.89 POSTSURGICAL STATES NEC 10/27/2017 SABIHA MAST MD Ot 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 10/27/2017 Ot M54.9 DORSALGIA, UNSPECIFIED 10/27/2017 Ot M79.89 OTHER SPECIFIED SOFT TISSUE DISORDERS 10/27/2017 SABIHA MAST MD Ot Z12.31 ENCNTR SCREEN MAMMOGRAM FOR MALIGNANT NE 10/27/2017 Ot R92.8 OTH ABN AND INCONCLUSIVE FINDINGS ON DX 10/27/2017 KEZIA SAUCEDO, SABIHA Glaser Ot R92.8 OTH ABN AND INCONCLUSIVE FINDINGS ON DX 10/27/2017 CONI SAUCEDO, Anshu CASE Ot E78.5 HYPERLIPIDEMIA, UNSPECIFIED 10/27/2017 CONI SAUCEDO, Anshu CASE Ot I10 ESSENTIAL (PRIMARY) HYPERTENSION 10/27/2017 CONI SAUCEDO, Anshu CASE Ot R00.2 PALPITATIONS 10/27/2017 CONI SAUCEDO, Anshu CASE Ot R06.02 SHORTNESS OF BREATH 10/27/2017 CONI SAUCEDO, Anshu CASE Ot E78.5 HYPERLIPIDEMIA, UNSPECIFIED 10/27/2017 CONI SAUCEDO, Anshu CASE Ot I10 ESSENTIAL (PRIMARY) HYPERTENSION 10/27/2017 CONI SAUCEDO, Anshu CAES Ot R06.02 SHORTNESS OF BREATH 10/27/2017 CONI SAUCEDO, Anshu CASE Ot E78.5 HYPERLIPIDEMIA, UNSPECIFIED 10/27/2017 CONI SAUCEDO, Anshu CASE Ot I10 ESSENTIAL (PRIMARY) HYPERTENSION 10/27/2017 CONI SAUCEDO, Anshu CASE Ot I73.9 PERIPHERAL VASCULAR DISEASE, UNSPECIFIED 10/27/2017 CONI SAUCEDO, Anshu CASE Ot R00.2 PALPITATIONS 10/27/2017 CONI SAUCEDO, Anshu CASE Ot R06.02 SHORTNESS OF BREATH 10/27/2017 NETTIE HAHN DO Ot D12.8 BENIGN NEOPLASM OF RECTUM 10/27/2017 NETTIE HAHN DO Ot E78.5 HYPERLIPIDEMIA, UNSPECIFIED 10/27/2017 NETTIE HAHN DO Ot F32.9 MAJOR DEPRESSIVE DISORDER, SINGLE EPISOD 10/27/2017 NETTIE HAHN DO Ot G40.909 EPILEPSY, UNSP, NOT INTRACTABLE, WITHOUT 10/27/2017 NETTIE HAHN DO Ot G47.33 OBSTRUCTIVE SLEEP APNEA (ADULT) (PEDIATR 10/27/2017 NETTIE HAHN DO Ot I10 ESSENTIAL (PRIMARY) HYPERTENSION 10/27/2017 NETTIE HAHN DO Ot J45.909 UNSPECIFIED ASTHMA, UNCOMPLICATED 10/27/2017 NETTIE HAHN DO Ot K21.9 GASTRO-ESOPHAGEAL REFLUX DISEASE WITHOUT 10/27/2017 NETTIE HAHN DO Ot K44.9 DIAPHRAGMATIC HERNIA WITHOUT OBSTRUCTION 10/27/2017 NETTIE HAHN DO Ot M79.7 FIBROMYALGIA 10/27/2017 NETTIE HAHN DO Ot Z79.899 OTHER CARE HOME (CURRENT) DRUG THERAPY 10/27/2017 NETTIE HAHN DO Ot 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 10/29/2017 NETTIE HAHN DO Ot D12.8 BENIGN NEOPLASM OF RECTUM 10/29/2017 NETTIE HAHN DO Ot E78.5 HYPERLIPIDEMIA, UNSPECIFIED 10/29/2017 NETTIE HAHN DO Ot F32.9 MAJOR DEPRESSIVE DISORDER, SINGLE EPISOD 10/29/2017 NETTIE HAHN DO Ot G40.909 EPILEPSY, UNSP, NOT INTRACTABLE, WITHOUT 10/29/2017 NETTIE HAHN DO Ot G47.33 OBSTRUCTIVE SLEEP APNEA (ADULT) (PEDIATR 10/29/2017 NETTIE HAHN DO Ot I10 ESSENTIAL (PRIMARY) HYPERTENSION 10/29/2017 NETTIE HAHN DO Ot J45.909 UNSPECIFIED ASTHMA, UNCOMPLICATED 10/29/2017 NETTIE HAHN DO Ot K21.9 GASTRO-ESOPHAGEAL REFLUX DISEASE WITHOUT 10/29/2017 NETTIE HAHN DO Ot K44.9 DIAPHRAGMATIC HERNIA WITHOUT OBSTRUCTION 10/29/2017 NETTIE HAHN DO Ot M79.7 FIBROMYALGIA 10/29/2017 NETTIE HAHN DO Ot Z79.899 OTHER CARE HOME (CURRENT) DRUG THERAPY 10/29/2017 NETTIE HAHN DO Ot 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 12/25/2017 ADOLFO SAUCEDO, ANGEL Saba Ot F32.9 MAJOR DEPRESSIVE DISORDER, SINGLE EPISOD 12/25/2017 ANGEL MATA MD Ot F41.9 ANXIETY DISORDER, UNSPECIFIED 12/25/2017 ADOLFO SAUCEDO, ANGEL Saba Ot G40.909 EPILEPSY, UNSP, NOT INTRACTABLE, WITHOUT 12/25/2017 ANGEL MATA MD Ot G43.909 MIGRAINE, UNSP, NOT INTRACTABLE, WITHOUT 12/25/2017 ANGEL MATA MD Ot G47.30 SLEEP APNEA, UNSPECIFIED 12/25/2017 ANGEL MATA MD, Ot I10 ESSENTIAL (PRIMARY) HYPERTENSION 12/25/2017 ANGEL MATA MD, Ot J45.909 UNSPECIFIED ASTHMA, UNCOMPLICATED 12/25/2017 ANGEL MATA MD, Ot K21.9 GASTRO-ESOPHAGEAL REFLUX DISEASE WITHOUT 12/25/2017 ANGEL MATA MD, Ot N20.0 CALCULUS OF KIDNEY 12/25/2017 ANGEL MATA MD, Ot R10.30 LOWER ABDOMINAL PAIN, UNSPECIFIED 12/25/2017 ANGEL MATA MD, Ot Z82.49 FAMILY HX OF ISCHEM HEART DIS AND OTH DI 12/25/2017 ANGEL MATA MD, Ot 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 12/25/2017 ANGEL MATA MD, Ot Z87.19 PERSONAL HISTORY OF OTHER DISEASES OF TH 12/25/2017 ANGEL MATA MD, Ot Z87.440 PERSONAL HISTORY OF URINARY (TRACT) INFE 12/25/2017 ANGEL MATA MD, Ot Z87.448 PERSONAL HISTORY OF OTHER DISEASES OF UR 12/25/2017 ANGEL MATA MD, Ot Z88.1 ALLERGY STATUS TO OTHER ANTIBIOTIC AGENT 12/25/2017 ANGEL MATA MD, Ot Z88.2 ALLERGY STATUS TO SULFONAMIDES STATUS 12/25/2017 ANGEL MATA MD, Ot Z88.4 ALLERGY STATUS TO ANESTHETIC AGENT STATU 12/25/2017 ANGEL MATA MD, Ot Z88.5 ALLERGY STATUS TO NARCOTIC AGENT STATUS 12/25/2017 ANGEL MATA MD, Ot Z88.6 ALLERGY STATUS TO ANALGESIC AGENT STATUS 12/25/2017 ANGEL MATA MD, Ot Z88.8 ALLERGY STATUS TO OTH DRUG/MEDS/BIOL SUB 12/25/2017 ANGEL MATA MD, Ot Z90.49 ACQUIRED ABSENCE OF OTHER SPECIFIED PART 12/25/2017 ANGEL MATA MD Ot Z90.710 ACQUIRED ABSENCE OF BOTH CERVIX AND UTER 12/25/2017 ANGEL MATA MD Ot Z90.89 ACQUIRED ABSENCE OF OTHER ORGANS 12/25/2017 ADOLFO SAUCEDO, ANGEL Saba Ot Z98.51 TUBAL LIGATION STATUS 12/25/2017 LAURA FINCH APRN Ot F32.9 MAJOR DEPRESSIVE DISORDER, SINGLE EPISOD 12/25/2017 LAURA FINCH APRN Ot F41.9 ANXIETY DISORDER, UNSPECIFIED 12/25/2017 LAURA FINCH APRN Ot G40.909 EPILEPSY, UNSP, NOT INTRACTABLE, WITHOUT 12/25/2017 LAURA FINCH APRN Ot G43.909 MIGRAINE, UNSP, NOT INTRACTABLE, WITHOUT 12/25/2017 LAURA FINCH APRN Ot G47.30 SLEEP APNEA, UNSPECIFIED 12/25/2017 LAURA FINCH APRN Ot I10 ESSENTIAL (PRIMARY) HYPERTENSION 12/25/2017 LAURA FINCH APRN Ot J45.909 UNSPECIFIED ASTHMA, UNCOMPLICATED 12/25/2017 LAURA FINCH APRN Ot K21.9 GASTRO-ESOPHAGEAL REFLUX DISEASE WITHOUT 12/25/2017 LAURA FINCH APRN Ot N20.0 CALCULUS OF KIDNEY 12/25/2017 LAURA FINCH APRN Ot N39.0 URINARY TRACT INFECTION, SITE NOT SPECIF 12/25/2017 LAURA FINCH APRN Ot Z82.49 FAMILY HX OF ISCHEM HEART DIS AND OTH DI 12/25/2017 LAURA FINCH APRN Ot 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 12/25/2017 LAURA FINCH APRN Ot Z87.19 PERSONAL HISTORY OF OTHER DISEASES OF TH 12/25/2017 LAURA FINCH APRN Ot Z88.1 ALLERGY STATUS TO OTHER ANTIBIOTIC AGENT 12/25/2017 LAURA FINCH APRN Ot Z88.2 ALLERGY STATUS TO SULFONAMIDES STATUS 12/25/2017 LAURA FINCH APRN Ot Z88.4 ALLERGY STATUS TO ANESTHETIC AGENT STATU 12/25/2017 LAURA FINCH APRN Ot Z88.5 ALLERGY STATUS TO NARCOTIC AGENT STATUS 12/25/2017 LAURA FINCH APRN Ot Z88.6 ALLERGY STATUS TO ANALGESIC AGENT STATUS 12/25/2017 LAURA FINCH APRN Ot Z88.8 ALLERGY STATUS TO OTH DRUG/MEDS/BIOL SUB 12/25/2017 LAURA FINCH APRN Ot Z90.710 ACQUIRED ABSENCE OF BOTH CERVIX AND UTER 12/25/2017 LAURA FINCH GUN EXAMINER Ot Z90.89 ACQUIRED ABSENCE OF OTHER ORGANS 12/25/2017 LAURA FINCH APRN Ot Z98.51 TUBAL LIGATION STATUS 12/28/2017 ADOLFO SAUCEDO, ANGEL Saba Ot F32.9 MAJOR DEPRESSIVE DISORDER, SINGLE EPISOD 12/28/2017 ANGEL MATA MD Ot F41.9 ANXIETY DISORDER, UNSPECIFIED 12/28/2017 ANGEL MATA MD Ot G40.909 EPILEPSY, UNSP, NOT INTRACTABLE, WITHOUT 12/28/2017 ANGEL MATA MD Ot G43.909 MIGRAINE, UNSP, NOT INTRACTABLE, WITHOUT 12/28/2017 ANGEL MATA MD Ot G47.30 SLEEP APNEA, UNSPECIFIED 12/28/2017 ANGEL MATA MD Ot I10 ESSENTIAL (PRIMARY) HYPERTENSION 12/28/2017 ANGEL MATA MD Ot J45.909 UNSPECIFIED ASTHMA, UNCOMPLICATED 12/28/2017 ANGEL MATA MD Ot K21.9 GASTRO-ESOPHAGEAL REFLUX DISEASE WITHOUT 12/28/2017 ANGEL MATA MD Ot N20.0 CALCULUS OF KIDNEY 12/28/2017 ANGEL MATA MD Ot R10.30 LOWER ABDOMINAL PAIN, UNSPECIFIED 12/28/2017 ANGEL MTAA MD Ot Z82.49 FAMILY HX OF ISCHEM HEART DIS AND OTH DI 12/28/2017 ANGEL MATA MD Ot 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 12/28/2017 ANGEL MATA MD Ot Z87.19 PERSONAL HISTORY OF OTHER DISEASES OF TH 12/28/2017 ANGEL MATA MD Ot Z87.440 PERSONAL HISTORY OF URINARY (TRACT) INFE 12/28/2017 ANGEL MATA MD Ot Z87.448 PERSONAL HISTORY OF OTHER DISEASES OF UR 12/28/2017 ANGEL MATA MD Ot Z88.1 ALLERGY STATUS TO OTHER ANTIBIOTIC AGENT 12/28/2017 ANGEL MATA MD Ot Z88.2 ALLERGY STATUS TO SULFONAMIDES STATUS 12/28/2017 ADOLFO SAUCEDO, ANGEL Saba Ot Z88.4 ALLERGY STATUS TO ANESTHETIC AGENT STATU 12/28/2017 ADOLFO SAUCEDO, ANGEL Saba Ot Z88.5 ALLERGY STATUS TO NARCOTIC AGENT STATUS 12/28/2017 ANGEL MATA MD Ot Z88.6 ALLERGY STATUS TO ANALGESIC AGENT STATUS 12/28/2017 ANGEL MATA MD Ot Z88.8 ALLERGY STATUS TO OTH DRUG/MEDS/BIOL SUB 12/28/2017 ANGEL MATA MD Ot Z90.49 ACQUIRED ABSENCE OF OTHER SPECIFIED PART 12/28/2017 ANGEL MATA MD Ot Z90.710 ACQUIRED ABSENCE OF BOTH CERVIX AND UTER 12/28/2017 ANGEL MATA MD Ot Z90.89 ACQUIRED ABSENCE OF OTHER ORGANS 12/28/2017 ANGEL MATA MD Ot Z98.51 TUBAL LIGATION STATUS 12/28/2017 LAURA FINCH APRN Ot F32.9 MAJOR DEPRESSIVE DISORDER, SINGLE EPISOD 12/28/2017 LAURA FINCH APRN Ot F41.9 ANXIETY DISORDER, UNSPECIFIED 12/28/2017 LAURA FINCH APRN Ot G40.909 EPILEPSY, UNSP, NOT INTRACTABLE, WITHOUT 12/28/2017 LAURA FINCH APRN Ot G43.909 MIGRAINE, UNSP, NOT INTRACTABLE, WITHOUT 12/28/2017 LAURA FINCH APRN Ot G47.30 SLEEP APNEA, UNSPECIFIED 12/28/2017 LAURA FINCH APRN Ot I10 ESSENTIAL (PRIMARY) HYPERTENSION 12/28/2017 LAURA FINCH APRN Ot J45.909 UNSPECIFIED ASTHMA, UNCOMPLICATED 12/28/2017 LAURA FINCH APRN Ot K21.9 GASTRO-ESOPHAGEAL REFLUX DISEASE WITHOUT 12/28/2017 LAURA FINCH APRN Ot N20.0 CALCULUS OF KIDNEY 12/28/2017 LAURA FINCH APRN Ot N39.0 URINARY TRACT INFECTION, SITE NOT SPECIF 12/28/2017 LAURA FINCH APRN Ot Z82.49 FAMILY HX OF ISCHEM HEART DIS AND OTH DI 12/28/2017 LAURA FINCH APRN Ot 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 12/28/2017 LAURA FINCH GUN EXAMINER Ot Z87.19 PERSONAL HISTORY OF OTHER DISEASES OF TH 12/28/2017 LAURA FINCH APRN Ot Z88.1 ALLERGY STATUS TO OTHER ANTIBIOTIC AGENT 12/28/2017 LAURA FINCH GUN EXAMINER Ot Z88.2 ALLERGY STATUS TO SULFONAMIDES STATUS 12/28/2017 LAURA FINCH GUN EXAMINER Ot Z88.4 ALLERGY STATUS TO ANESTHETIC AGENT STATU 12/28/2017 LAURA FINCH GUN EXAMINER Ot Z88.5 ALLERGY STATUS TO NARCOTIC AGENT STATUS 12/28/2017 LAURA FINCH APRN Ot Z88.6 ALLERGY STATUS TO ANALGESIC AGENT STATUS 12/28/2017 LAURA FINCH APRN Ot Z88.8 ALLERGY STATUS TO OTH DRUG/MEDS/BIOL SUB 12/28/2017 LAURA FINCH APRN Ot Z90.710 ACQUIRED ABSENCE OF BOTH CERVIX AND UTER 12/28/2017 LAURA FINCH GUN EXAMINER Ot Z90.89 ACQUIRED ABSENCE OF OTHER ORGANS 12/28/2017 LAURA FINCH APRN Ot Z98.51 TUBAL LIGATION STATUS 12/28/2017 MILADYS SAUCEDO, MARISA Gant Ot N20.0 CALCULUS OF KIDNEY 12/28/2017 MILADYS SAUCEDO, MARISA Gant Ot Z01.818 ENCOUNTER FOR OTHER PREPROCEDURAL EXAMIN 12/29/2017 MARISA HOOK MD Ot Z01.818 ENCOUNTER FOR OTHER PREPROCEDURAL EXAMIN 12/29/2017 MARISA HOOK MD Ot Z01.818 ENCOUNTER FOR OTHER PREPROCEDURAL EXAMIN Procedures Code Description Performed By Performed On 56.0 TU REMOV URETER OBSTRUCT 05/01/2009 59.5 RETROPUBIC URETH SUSPENS 07/18/2009 91622 ROUTINE VENIPUNCTURE 03/31/2012 81500 A1C (IN-HOUSE) 03/31/2012 53885 CBC 03/31/2012 78052 LIPID PANEL 03/31/2012 86690 CMP 03/31/2012 5000710 GFR CALC (RESULT ONLY) 03/31/2012 59899 TSH 03/31/2012 17392 MICRO ALBUMIN-IN HOUSE 04/01/2012 97012 PSYCH IND W/MED CK 20 04/13/2012 96520 EEG 04/13/2012 Neurology Mino Garcia 04/13/2012 79653 PSYCH DIAG INTER EXAM 04/15/2012 42518 INDIV PSYTX 45/50 MIN 04/27/2012 89851 PSYCH PHARM MGMT 05/01/2012 67566 PSYCH PHARM MGMT 05/05/2012 70103 INDIV PSYTX 20/30 MIN 05/21/2012 24213 PSYTX PT&/FAMILY 60 MINUTES 07/07/2012 88700 MAMMOGRAM DX, YOLI 07/08/2012 78317 PAP SMEAR 07/08/2012 Q0091 PAP SMEAR OBTAIN SMEAR 07/08/2012 65283 PSYTX PT&/FAMILY 45 MINUTES 07/21/2012 67115 PSYCH IND W/MED CK 20 08/06/2012 93663 PSYTX PT&/FAMILY 30 MINUTES 08/06/2012 10671 UA LONG DIP 09/22/2012 04163 PSYTX PT&/FAMILY 45 MINUTES 09/28/2012 20609 PSYTX PT&/FAMILY 45 MINUTES 10/28/2012 10699 PSYCH DIAGNOSTIC EVALUATION 11/15/2012 03322 PSYTX PT&/FAMILY 45 MINUTES 11/23/2012 96299 ROUTINE VENIPUNCTURE 02/28/2013 09274 TSH 02/28/2013 68268 A1C (IN-HOUSE) 02/28/2013 92999 CBC 02/28/2013 61734 LIPID PANEL 02/28/2013 70065 CMP 02/28/2013 [id number] GFR CALC (RESULT ONLY) 02/28/2013 56555 UA W/ CULTURE IF INDICATED 04/07/2013 17653 URINE DRUG SCREEN (IN-HOUSE ) 04/07/2013 29794 TRIGGER POINT INJ/1-2 MUS 04/08/2013 08975 URINE OXYCODONE GC/MS 04/08/2013 38226 URINE TCA CON'F 04/08/2013 08545 URINE DRUG SCREEN (IN-HOUSE ) 05/16/2013 15337 MAMMOGRAM DX, YOLI 05/17/2013 Q0091 PAP SMEAR OBTAIN SMEAR 05/17/2013 89918 PAP SMEAR 05/26/2013 63132 PSYTX PT&/FAMILY 30 MINUTES 06/16/2013 30450 US PELVIC COMPL (REFLEX CPT - 36436) 07/01/2013 62400 CMP 07/15/2013 02309 LIPID PANEL 07/15/2013 72991 TSH 07/15/2013 20116 CBC 07/15/2013 67195 CRP HS (CARDIO) 07/15/2013 15193 PSYTX PT&/FAMILY 45 MINUTES 07/20/2013 2000F BLOOD PRESSURE CHECK 09/08/2013 49416 PSYTX PT&/FAMILY 45 MINUTES 09/20/2013 58613 PSYTX PT&/FAMILY 45 MINUTES 11/09/[address] ABDOMEN W/ AND W/O CONTRAST 12/22/2013 36382 LIPASE 12/22/2013 90610 CBC 12/22/2013 [id number] GFR CALC (RESULT ONLY) 12/22/2013 79519 CMP 12/22/2013 86387 A1C (IN-HOUSE) 03/07/2014 42463 URINE DRUG SCREEN (IN-HOUSE ) 03/14/2014 16486 UA LONG DIP 04/07/2014 Results Test Result Range Complete blood count (CBC) with automated white blood cell (WBC) differential - 03/24/16 08:50 Blood leukocytes automated count (number/volume) 6.5 10*3/uL 4.3-11.0 Blood erythrocytes automated count (number/volume) 5.23 10*6/uL 4.35-5.85 Venous blood hemoglobin measurement (mass/volume) 14.6 g/dL 11.5-16.0 Blood hematocrit (volume fraction) 43 % 35-52 Automated erythrocyte mean corpuscular volume 82 [foz_us] 80-99 Automated erythrocyte mean corpuscular hemoglobin (mass per erythrocyte) 28 pg 25-34 Automated erythrocyte mean corpuscular hemoglobin concentration measurement ( mass/volume) 34 g/dL 32-36 Automated erythrocyte distribution width ratio 13.0 % 10.0-14.5 Automated blood platelet count (count/volume) 190 10*3/uL 130-400 Automated blood platelet mean volume measurement 11.4 [foz_us] 7.4-10.4 Automated blood neutrophils/100 leukocytes 64 % 42-75 Automated blood lymphocytes/100 leukocytes 26 % 12-44 Blood monocytes/100 leukocytes 7 % 0-12 Automated blood eosinophils/100 leukocytes 2 % 0-10 Automated blood basophils/100 leukocytes 1 % 0-10 Blood neutrophils automated count (number/volume) 4.2 10*3 1.8-7.8 Blood lymphocytes automated count (number/volume) 1.7 10*3 1.0-4.0 Blood monocytes automated count (number/volume) 0.5 10*3 0.0-1.0 Automated eosinophil count 0.1 10*3/uL 0.0-0.3 Automated blood basophil count (count/volume) 0.0 10*3/uL 0.0-0.1 Complete urinalysis with reflex to culture - 03/24/16 08:50 Urine color determination YELLOW NRG Urine clarity determination CLEAR NRG Urine pH measurement by test strip 6 5-9 Specific gravity of urine by test strip 1.015 1.016- 1.022 Urine protein assay by test strip, semi-quantitative 1+ NEGATIVE Urine glucose detection by automated test strip NEGATIVE NEGATIVE Erythrocytes detection in urine sediment by light microscopy 5+ NEGATIVE Urine ketones detection by automated test strip NEGATIVE NEGATIVE Urine nitrite detection by test strip NEGATIVE NEGATIVE Urine total bilirubin detection by test strip NEGATIVE NEGATIVE Urine urobilinogen measurement by automated test strip (mass/volume) NORMAL NORMAL Urine leukocyte esterase detection by dipstick 1+ NEGATIVE Automated urine sediment erythrocyte count by microscopy (number/high power field) [HPF] NRG Automated urine sediment leukocyte count by microscopy (number/high power field ) [HPF] NRG Bacteria detection in urine sediment by light microscopy NEGATIVE NRG Squamous epithelial cells detection in urine sediment by light microscopy NONE NRG Crystals detection in urine sediment by light microscopy NONE NRG Casts detection in urine sediment by light microscopy NONE NRG Mucus detection in urine sediment by light microscopy NEGATIVE NRG Complete urinalysis with reflex to culture NO NRG Comprehensive metabolic panel - 03/24/16 08:50 Serum or plasma sodium measurement (moles/volume) 140 mmol/L 135-145 Serum or plasma potassium measurement (moles/volume) 3.8 mmol/L 3.6-5.0 Serum or plasma chloride measurement (moles/volume) 105 mmol/L 98-107 Carbon dioxide 24 mmol/L 21-32 Serum or plasma anion gap determination (moles/volume) 11 mmol/L 5-14 Serum or plasma urea nitrogen measurement (mass/volume) 10 mg/dL 7-18 Serum or plasma creatinine measurement (mass/volume) 0.82 mg/dL 0.60-1.30 Serum or plasma urea nitrogen/creatinine mass ratio 12 NRG Serum or plasma creatinine measurement with calculation of estimated glomerular filtration rate > NRG Serum or plasma glucose measurement (mass/volume) 108 mg/dL 70-105 Serum or plasma calcium measurement (mass/volume) 9.9 mg/dL 8.5-10.1 Serum or plasma total bilirubin measurement (mass/volume) 0.3 mg/dL 0.1-1.0 Serum or plasma alkaline phosphatase measurement (enzymatic activity/volume) 69 U/L 40-136 Serum or plasma aspartate aminotransferase measurement (enzymatic activity/ volume) 12 U/L 5-34 Serum or plasma alanine aminotransferase measurement (enzymatic activity/volume ) 12 U/L 0-55 Serum or plasma protein measurement (mass/volume) 7.5 g/dL 6.4-8.2 Serum or plasma albumin measurement (mass/volume) 4.4 g/dL 3.2-4.5 Magnesium - 03/24/16 08:50 Magnesium 2.1 mg/dL 1.8-2.4 Urine drug screening test - 03/24/16 08:50 Urine phencyclidine detection by screening method NEGATIVE NEGATIVE Urine benzodiazepines detection by screening method POSITIVE NEGATIVE Urine cocaine detection NEGATIVE NEGATIVE Urine amphetamines detection by screening method NEGATIVE NEGATIVE Urine methamphetamine detection by screening method NEGATIVE NEGATIVE Urine cannabinoids detection by screening method NEGATIVE NEGATIVE Urine opiates detection by screening method POSITIVE NEGATIVE Urine barbiturates detection NEGATIVE NEGATIVE Screening urine tricyclic antidepressants detection POSITIVE NEGATIVE Urine methadone detection by screening method NEGATIVE NEGATIVE Urine oxycodone detection NEGATIVE NEGATIVE Urine propoxyphene detection NEGATIVE NEGATIVE Urine buprenophrine screen NEGATIVE NEGATIVE Urine Culture, Routine - 04/17/16 18:18 Urine Culture, Routine Note Urine Culture, Routine - 05/27/16 18:19 Urine Culture, Routine Note Complete urinalysis with reflex to culture - 06/07/16 12:32 Urine color determination YELLOW NRG Urine clarity determination SLIGHTLY CLOUDY NRG Urine pH measurement by test strip 7 5-9 Specific gravity of urine by test strip 1.010 1.016- 1.022 Urine protein assay by test strip, semi-quantitative NEGATIVE NEGATIVE Urine glucose detection by automated test strip NEGATIVE NEGATIVE Erythrocytes detection in urine sediment by light microscopy 3+ NEGATIVE Urine ketones detection by automated test strip NEGATIVE NEGATIVE Urine nitrite detection by test strip NEGATIVE NEGATIVE Urine total bilirubin detection by test strip NEGATIVE NEGATIVE Urine urobilinogen measurement by automated test strip (mass/volume) NORMAL NORMAL Urine leukocyte esterase detection by dipstick 1+ NEGATIVE Automated urine sediment erythrocyte count by microscopy (number/high power field) [HPF] NRG Automated urine sediment leukocyte count by microscopy (number/high power field ) RARE NRG Bacteria detection in urine sediment by light microscopy NEGATIVE NRG Squamous epithelial cells detection in urine sediment by light microscopy 2-5 NRG Crystals detection in urine sediment by light microscopy NONE NRG Casts detection in urine sediment by light microscopy NONE NRG Mucus detection in urine sediment by light microscopy NEGATIVE NRG Complete urinalysis with reflex to culture NO NRG Complete blood count (CBC) with automated white blood cell (WBC) differential - 06/07/16 13:20 Blood leukocytes automated count (number/volume) 4.7 10*3/uL 4.3-11.0 Blood erythrocytes automated count (number/volume) 4.85 10*6/uL 4.35-5.85 Venous blood hemoglobin measurement (mass/volume) 13.4 g/dL 11.5-16.0 Blood hematocrit (volume fraction) 40 % 35-52 Automated erythrocyte mean corpuscular volume 83 [foz_us] 80-99 Automated erythrocyte mean corpuscular hemoglobin (mass per erythrocyte) 28 pg 25-34 Automated erythrocyte mean corpuscular hemoglobin concentration measurement ( mass/volume) 33 g/dL 32-36 Automated erythrocyte distribution width ratio 12.6 % 10.0-14.5 Automated blood platelet count (count/volume) 190 10*3/uL 130-400 Automated blood platelet mean volume measurement 10.8 [foz_us] 7.4-10.4 Automated blood neutrophils/100 leukocytes 58 % 42-75 Automated blood lymphocytes/100 leukocytes 31 % 12-44 Blood monocytes/100 leukocytes 8 % 0-12 Automated blood eosinophils/100 leukocytes 2 % 0-10 Automated blood basophils/100 leukocytes 0 % 0-10 Blood neutrophils automated count (number/volume) 2.7 10*3 1.8-7.8 Blood lymphocytes automated count (number/volume) 1.4 10*3 1.0-4.0 Blood monocytes automated count (number/volume) 0.4 10*3 0.0-1.0 Automated eosinophil count 0.1 10*3/uL 0.0-0.3 Automated blood basophil count (count/volume) 0.0 10*3/uL 0.0-0.1 Comprehensive metabolic panel - 06/07/16 13:20 Serum or plasma sodium measurement (moles/volume) 139 mmol/L 135-145 Serum or plasma potassium measurement (moles/volume) 3.7 mmol/L 3.6-5.0 Serum or plasma chloride measurement (moles/volume) 106 mmol/L 98-107 Carbon dioxide 20 mmol/L 21-32 Serum or plasma anion gap determination (moles/volume) 13 mmol/L 5-14 Serum or plasma urea nitrogen measurement (mass/volume) 9 mg/dL 7-18 Serum or plasma creatinine measurement (mass/volume) 0.82 mg/dL 0.60-1.30 Serum or plasma urea nitrogen/creatinine mass ratio 11 NRG Serum or plasma creatinine measurement with calculation of estimated glomerular filtration rate > NR Serum or plasma glucose measurement (mass/volume) 108 mg/dL 70-105 Serum or plasma calcium measurement (mass/volume) 9.1 mg/dL 8.5-10.1 Serum or plasma total bilirubin measurement (mass/volume) 0.3 mg/dL 0.1-1.0 Serum or plasma alkaline phosphatase measurement (enzymatic activity/volume) 77 U/L 40-136 Serum or plasma aspartate aminotransferase measurement (enzymatic activity/ volume) 25 U/L 5-34 Serum or plasma alanine aminotransferase measurement (enzymatic activity/volume ) 38 U/L 0-55 Serum or plasma protein measurement (mass/volume) 6.7 g/dL 6.4-8.2 Serum or plasma albumin measurement (mass/volume) 4.1 g/dL 3.2-4.5 Methicillin resistant Staphylococcus aureus (MRSA) screening culture - 06:30 Methicillin resistant Staphylococcus aureus (MRSA) screening culture NEG [facility] Comp. Metabolic Panel (14) - 08/13/16 13:57 Glucose, Serum 101 mg/dL 65-99 BUN 11 mg/dL 6-24 Creatinine, Serum 0.85 mg/dL 0.57-1.00 eGFR If NonAfricn Am 82 mL/min/1.73 >59 eGFR If Africn Am 94 mL/min/1.73 >59 BUN/Creatinine Ratio 13 9-23 Sodium, Serum 144 mmol/L 134-144 Potassium, Serum 4.5 mmol/L 3.5-5.2 Chloride, Serum 101 mmol/L 96-106 Carbon Dioxide, Total 28 mmol/L 18-29 Calcium, Serum 9.4 mg/dL 8.7-10.2 Protein, Total, Serum 7.2 g/dL 6.0-8.5 Albumin, Serum 4.5 g/dL 3.5-5.5 Globulin, Total 2.7 g/dL 1.5-4.5 A/G Ratio 1.7 1.2-2.2 Bilirubin, Total 0.3 mg/dL 0.0-1.2 Alkaline Phosphatase, S 70 IU/L 39-117 AST (SGOT) 13 IU/L 0-40 ALT (SGPT) 14 IU/L 0-32 TSH - 08/13/16 13:57 TSH 1.030 uIU/mL 0.450-4.500 Complete urinalysis with reflex to culture - 02/23/17 14:16 Urine color determination YELLOW NRG Urine clarity determination CLEAR NRG Urine pH measurement by test strip 5 5-9 Specific gravity of urine by test strip 1.020 1.016- 1.022 Urine protein assay by test strip, semi-quantitative 3+ NEGATIVE Urine glucose detection by automated test strip NEGATIVE NEGATIVE Erythrocytes detection in urine sediment by light microscopy 5+ NEGATIVE Urine ketones detection by automated test strip NEGATIVE NEGATIVE Urine nitrite detection by test strip POSITIVE NEGATIVE Urine total bilirubin detection by test strip NEGATIVE NEGATIVE Urine urobilinogen measurement by automated test strip (mass/volume) NORMAL NORMAL Urine leukocyte esterase detection by dipstick 2+ NEGATIVE Automated urine sediment erythrocyte count by microscopy (number/high power field) TNTC NRG Automated urine sediment leukocyte count by microscopy (number/high power field ) [HPF] NRG Bacteria detection in urine sediment by light microscopy NEGATIVE NRG Squamous epithelial cells detection in urine sediment by light microscopy NONE NRG Crystals detection in urine sediment by light microscopy NONE NRG Casts detection in urine sediment by light microscopy NONE NRG Mucus detection in urine sediment by light microscopy NEGATIVE NRG Complete urinalysis with reflex to culture YES NRG Bacterial urine culture - 02/23/17 14:16 URINE CULTURE RESULTS <10,000/ML NR Comp. Metabolic Panel (14) - 03/24/17 14:30 Glucose, Serum 98 mg/dL 65-99 BUN 14 mg/dL 6-24 Creatinine, Serum 0.92 mg/dL 0.57-1.00 eGFR If NonAfricn Am 74 mL/min/1.73 >59 eGFR If Africn Am 85 mL/min/1.73 >59 BUN/Creatinine Ratio 15 9-23 Sodium, Serum 141 mmol/L 134-144 Potassium, Serum 4.5 mmol/L 3.5-5.2 Chloride, Serum 100 mmol/L 96-106 Carbon Dioxide, Total 24 mmol/L 18-29 Calcium, Serum 10.0 mg/dL 8.7-10.2 Protein, Total, Serum 7.6 g/dL 6.0-8.5 Albumin, Serum 4.6 g/dL 3.5-5.5 Globulin, Total 3.0 g/dL 1.5-4.5 A/G Ratio 1.5 1.2-2.2 Bilirubin, Total 0.3 mg/dL 0.0-1.2 Alkaline Phosphatase, S 68 IU/L 39-117 AST (SGOT) 10 IU/L 0-40 ALT (SGPT) 10 IU/L 0-32 Lipid Panel - 03/24/17 14:30 Cholesterol, Total 379 mg/dL 100-199 Triglycerides 382 mg/dL 0-149 HDL Cholesterol 41 mg/dL >39 VLDL Cholesterol Dorian 76 mg/dL 5-40 LDL Cholesterol Calc 262 mg/dL 0-99 TSH - 03/24/17 14:30 TSH 1.840 uIU/mL 0.450-4.500 TSH - 03/24/17 14:30 TSH 1.840 uIU/mL 0.450-4.500 CULTURE, URINE - 05/01/17 14:51 CULTURE, URINE, ROUTINE SEE NOTE NRG FERRITIN, SERUM - 10/06/17 10:29 FERRITIN 123 ng/mL 10-232 VITAMIN D, 25-H - 10/06/17 10:29 VITAMIN D,25-OH,TOTAL,IA 15 ng/mL 30-100 Complete urinalysis with reflex to culture - 12/22/17 18:05 Urine color determination YELLOW NRG Urine clarity determination VERY CLOUDY NRG Urine pH measurement by test strip 5 5-9 Specific gravity of urine by test strip 1.015 1.016- 1.022 Urine protein assay by test strip, semi-quantitative 3+ NEGATIVE Urine glucose detection by automated test strip NEGATIVE NEGATIVE Erythrocytes detection in urine sediment by light microscopy 5+ NEGATIVE Urine ketones detection by automated test strip NEGATIVE NEGATIVE Urine nitrite detection by test strip NEGATIVE NEGATIVE Urine total bilirubin detection by test strip NEGATIVE NEGATIVE Urine urobilinogen measurement by automated test strip (mass/volume) NORMAL NORMAL Urine leukocyte esterase detection by dipstick 2+ NEGATIVE Automated urine sediment erythrocyte count by microscopy (number/high power field) TNTC NRG Automated urine sediment leukocyte count by microscopy (number/high power field ) [HPF] NRG Bacteria detection in urine sediment by light microscopy NONE NRG Squamous epithelial cells detection in urine sediment by light microscopy 5-10 NRG Crystals detection in urine sediment by light microscopy NONE NRG Casts detection in urine sediment by light microscopy NONE NRG Mucus detection in urine sediment by light microscopy NEGATIVE NRG Complete urinalysis with reflex to culture YES NRG Bacterial urine culture - 12/22/17 18:05 Bacterial urine culture SEE COMMEN NRG COLONY COUNT . NRG Complete blood count (CBC) with automated white blood cell (WBC) differential - 12/22/17 18:19 Blood leukocytes automated count (number/volume) 6.1 10*3/uL 4.3-11.0 Blood erythrocytes automated count (number/volume) 4.61 10*6/uL 4.35-5.85 Venous blood hemoglobin measurement (mass/volume) 13.6 g/dL 11.5-16.0 Blood hematocrit (volume fraction) 39 % 35-52 Automated erythrocyte mean corpuscular volume 84 [foz_us] 80-99 Automated erythrocyte mean corpuscular hemoglobin (mass per erythrocyte) 30 pg 25-34 Automated erythrocyte mean corpuscular hemoglobin concentration measurement ( mass/volume) 35 g/dL 32-36 Automated erythrocyte distribution width ratio 12.3 % 10.0-14.5 Automated blood platelet count (count/volume) 172 10*3/uL 130-400 Automated blood platelet mean volume measurement 11.2 [foz_us] 7.4-10.4 Automated blood neutrophils/100 leukocytes 57 % 42-75 Automated blood lymphocytes/100 leukocytes 33 % 12-44 Blood monocytes/100 leukocytes 7 % 0-12 Automated blood eosinophils/100 leukocytes 3 % 0-10 Automated blood basophils/100 leukocytes 0 % 0-10 Blood neutrophils automated count (number/volume) 3.4 10*3 1.8-7.8 Blood lymphocytes automated count (number/volume) 2.0 10*3 1.0-4.0 Blood monocytes automated count (number/volume) 0.4 10*3 0.0-1.0 Automated eosinophil count 0.2 10*3/uL 0.0-0.3 Automated blood basophil count (count/volume) 0.0 10*3/uL 0.0-0.1 Comprehensive metabolic panel - 12/22/17 18:19 Serum or plasma sodium measurement (moles/volume) 139 mmol/L 135-145 Serum or plasma potassium measurement (moles/volume) 4.2 mmol/L 3.6-5.0 Serum or plasma chloride measurement (moles/volume) 106 mmol/L 98-107 Carbon dioxide 26 mmol/L 21-32 Serum or plasma anion gap determination (moles/volume) 7 mmol/L 5-14 Serum or plasma urea nitrogen measurement (mass/volume) 15 mg/dL 7-18 Serum or plasma creatinine measurement (mass/volume) 0.91 mg/dL 0.60-1.30 Serum or plasma urea nitrogen/creatinine mass ratio 16 NRG Serum or plasma creatinine measurement with calculation of estimated glomerular filtration rate > NRG Serum or plasma glucose measurement (mass/volume) 100 mg/dL 70-105 Serum or plasma calcium measurement (mass/volume) 9.6 mg/dL 8.5-10.1 Serum or plasma total bilirubin measurement (mass/volume) 0.4 mg/dL 0.1-1.0 Serum or plasma alkaline phosphatase measurement (enzymatic activity/volume) 56 U/L 40-136 Serum or plasma aspartate aminotransferase measurement (enzymatic activity/ volume) 14 U/L 5-34 Serum or plasma alanine aminotransferase measurement (enzymatic activity/volume ) 15 U/L 0-55 Serum or plasma protein measurement (mass/volume) 7.8 g/dL 6.4-8.2 Serum or plasma albumin measurement (mass/volume) 4.4 g/dL 3.2-4.5 Lipase - 12/22/17 18:19 Lipase 24 U/L 8-78 Complete urinalysis with reflex to culture - 12/25/17 19:43 Urine color determination YELLOW NRG Urine clarity determination SLIGHTLY CLOUDY NRG Urine pH measurement by test strip 6.5 5-9 Specific gravity of urine by test strip 1.010 1.016- 1.022 Urine protein assay by test strip, semi-quantitative 3+ NEGATIVE Urine glucose detection by automated test strip NEGATIVE NEGATIVE Erythrocytes detection in urine sediment by light microscopy 5+ NEGATIVE Urine ketones detection by automated test strip NEGATIVE NEGATIVE Urine nitrite detection by test strip NEGATIVE NEGATIVE Urine total bilirubin detection by test strip NEGATIVE NEGATIVE Urine urobilinogen measurement by automated test strip (mass/volume) NORMAL NORMAL Urine leukocyte esterase detection by dipstick 3+ NEGATIVE Automated urine sediment erythrocyte count by microscopy (number/high power field) [HPF] NRG Automated urine sediment leukocyte count by microscopy (number/high power field ) [HPF] NRG Bacteria detection in urine sediment by light microscopy TRACE NRG Squamous epithelial cells detection in urine sediment by light microscopy 2-5 NRG Crystals detection in urine sediment by light microscopy NONE NRG Casts detection in urine sediment by light microscopy NONE NRG Mucus detection in urine sediment by light microscopy NEGATIVE NRG Complete urinalysis with reflex to culture YES NRG Complete blood count (CBC) with automated white blood cell (WBC) differential - 12/25/17 19:43 Blood leukocytes automated count (number/volume) 6.0 10*3/uL 4.3-11.0 Blood erythrocytes automated count (number/volume) 4.51 10*6/uL 4.35-5.85 Venous blood hemoglobin measurement (mass/volume) 12.8 g/dL 11.5-16.0 Blood hematocrit (volume fraction) 38 % 35-52 Automated erythrocyte mean corpuscular volume 84 [foz_us] 80-99 Automated erythrocyte mean corpuscular hemoglobin (mass per erythrocyte) 28 pg 25-34 Automated erythrocyte mean corpuscular hemoglobin concentration measurement ( mass/volume) 34 g/dL 32-36 Automated erythrocyte distribution width ratio 12.7 % 10.0-14.5 Automated blood platelet count (count/volume) 187 10*3/uL 130-400 Automated blood platelet mean volume measurement 10.9 [foz_us] 7.4-10.4 Automated blood neutrophils/100 leukocytes 41 % 42-75 Automated blood lymphocytes/100 leukocytes 46 % 12-44 Blood monocytes/100 leukocytes 9 % 0-12 Automated blood eosinophils/100 leukocytes 4 % 0-10 Automated blood basophils/100 leukocytes 0 % 0-10 Blood neutrophils automated count (number/volume) 2.5 10*3 1.8-7.8 Blood lymphocytes automated count (number/volume) 2.8 10*3 1.0-4.0 Blood monocytes automated count (number/volume) 0.5 10*3 0.0-1.0 Automated eosinophil count 0.2 10*3/uL 0.0-0.3 Automated blood basophil count (count/volume) 0.0 10*3/uL 0.0-0.1 Whole blood basic metabolic panel - 12/25/17 19:43 Serum or plasma sodium measurement (moles/volume) 141 mmol/L 135-145 Serum or plasma potassium measurement (moles/volume) 3.8 mmol/L 3.6-5.0 Serum or plasma chloride measurement (moles/volume) 105 mmol/L 98-107 Carbon dioxide 26 mmol/L 21-32 Serum or plasma anion gap determination (moles/volume) 10 mmol/L 5-14 Serum or plasma urea nitrogen measurement (mass/volume) 10 mg/dL 7-18 Serum or plasma creatinine measurement (mass/volume) 0.95 mg/dL 0.60-1.30 Serum or plasma urea nitrogen/creatinine mass ratio 11 NRG Serum or plasma creatinine measurement with calculation of estimated glomerular filtration rate > NRG Serum or plasma glucose measurement (mass/volume) 111 mg/dL 70-105 Serum or plasma calcium measurement (mass/volume) 9.8 mg/dL 8.5-10.1 Bacterial urine culture - 12/25/17 19:43 Bacterial urine culture SEE COMMEN NRG COLONY COUNT . NRG Methicillin resistant Staphylococcus aureus (MRSA) screening culture - 06:35 Methicillin resistant Staphylococcus aureus (MRSA) screening culture NEG NRG Complete blood count (CBC) with automated white blood cell (WBC) differential - 12/29/17 18:15 Blood leukocytes automated count (number/volume) 13.1 10*3/uL 4.3-11.0 Blood erythrocytes automated count (number/volume) 5.23 10*6/uL 4.35-5.85 Venous blood hemoglobin measurement (mass/volume) 14.7 g/dL 11.5-16.0 Blood hematocrit (volume fraction) 43 % 35-52 Automated erythrocyte mean corpuscular volume 82 [foz_us] 80-99 Automated erythrocyte mean corpuscular hemoglobin (mass per erythrocyte) 28 pg 25-34 Automated erythrocyte mean corpuscular hemoglobin concentration measurement ( mass/volume) 34 g/dL 32-36 Automated erythrocyte distribution width ratio 13.0 % 10.0-14.5 Automated blood platelet count (count/volume) 243 10*3/uL 130-400 Automated blood platelet mean volume measurement 11.2 [foz_us] 7.4-10.4 Automated blood neutrophils/100 leukocytes 87 % 42-75 Automated blood lymphocytes/100 leukocytes 8 % 12-44 Blood monocytes/100 leukocytes 5 % 0-12 Automated blood eosinophils/100 leukocytes 0 % 0-10 Automated blood basophils/100 leukocytes 0 % 0-10 Blood neutrophils automated count (number/volume) 11.4 10*3 1.8-7.8 Blood lymphocytes automated count (number/volume) 1.1 10*3 1.0-4.0 Blood monocytes automated count (number/volume) 0.6 10*3 0.0-1.0 Automated eosinophil count 0.0 10*3/uL 0.0-0.3 Automated blood basophil count (count/volume) 0.0 10*3/uL 0.0-0.1 Comprehensive metabolic panel - 12/29/17 18:15 Serum or plasma sodium measurement (moles/volume) 138 mmol/L 135-145 Serum or plasma potassium measurement (moles/volume) 4.2 mmol/L 3.6-5.0 Serum or plasma chloride measurement (moles/volume) 102 mmol/L 98-107 Carbon dioxide 22 mmol/L 21-32 Serum or plasma anion gap determination (moles/volume) 14 mmol/L 5-14 Serum or plasma urea nitrogen measurement (mass/volume) 13 mg/dL 7-18 Serum or plasma creatinine measurement (mass/volume) 1.20 mg/dL 0.60-1.30 Serum or plasma urea nitrogen/creatinine mass ratio 11 NRG Serum or plasma creatinine measurement with calculation of estimated glomerular filtration rate 48 NRG Serum or plasma glucose measurement (mass/volume) 175 mg/dL 70-105 Serum or plasma calcium measurement (mass/volume) 10.5 mg/dL 8.5-10.1 Serum or plasma total bilirubin measurement (mass/volume) 0.5 mg/dL 0.1-1.0 Serum or plasma alkaline phosphatase measurement (enzymatic activity/volume) 73 U/L 40-136 Serum or plasma aspartate aminotransferase measurement (enzymatic activity/ volume) 30 U/L 5-34 Serum or plasma alanine aminotransferase measurement (enzymatic activity/volume ) 37 U/L 0-55 Serum or plasma protein measurement (mass/volume) 8.3 g/dL 6.4-8.2 Serum or plasma albumin measurement (mass/volume) 4.8 g/dL 3.2-4.5 Serum or plasma amylase measurement (enzymatic activity/volume) - 12/29/17 18: 15 Serum or plasma amylase measurement (enzymatic activity/volume) 48 U /L 25-125 Lipase - 12/29/17 18:15 Lipase 13 U/L 8-78 Complete urinalysis with reflex to culture - 12/29/17 18:24 Urine color determination YELLOW NRG Urine clarity determination CLEAR NRG Urine pH measurement by test strip 7 5-9 Specific gravity of urine by test strip 1.010 1.016- 1.022 Urine protein assay by test strip, semi-quantitative 3+ NEGATIVE Urine glucose detection by automated test strip 1+ NEGATIVE Erythrocytes detection in urine sediment by light microscopy 5+ NEGATIVE Urine ketones detection by automated test strip NEGATIVE NEGATIVE Urine nitrite detection by test strip NEGATIVE NEGATIVE Urine total bilirubin detection by test strip NEGATIVE NEGATIVE Urine urobilinogen measurement by automated test strip (mass/volume) NORMAL NORMAL Urine leukocyte esterase detection by dipstick 2+ NEGATIVE Automated urine sediment erythrocyte count by microscopy (number/high power field) TNTC NRG Automated urine sediment leukocyte count by microscopy (number/high power field ) [HPF] NRG Bacteria detection in urine sediment by light microscopy TRACE NRG Squamous epithelial cells detection in urine sediment by light microscopy 5-10 NRG Crystals detection in urine sediment by light microscopy NONE NRG Casts detection in urine sediment by light microscopy NONE NRG Mucus detection in urine sediment by light microscopy NEGATIVE NRG Complete urinalysis with reflex to culture NO NRG Encounters ACCT No. Visit Date/Time Discharge Status Pt. Type Provider Facility Loc./Unit Complaint [id number] 09/12/2014 11:37:00 09/12/2014 23:59:59 CLS Outpatient KIKA ARGUETA DO [id number] 07/20/2014 10:41:00 07/20/2014 23:59:59 CLS Outpatient ITZ JUNIOR APRN [id number] 04/18/2014 11:17:00 04/18/2014 23:59:59 CLS Outpatient ITZ JUNIOR APRN [id number] 04/18/2014 11:17:00 04/18/2014 23:59:59 CLS Outpatient ITZ JUNIOR APRN [id number] 03/24/2014 08:33:00 03/24/2014 23:59:59 CLS Outpatient KIKA ARGUETA DO [id number] 03/14/2014 10:56:00 03/14/2014 23:59:59 CLS Outpatient ITZ JUNIOR APRN [id number] 03/09/2014 10:02:00 03/09/2014 23:59:59 CLS Outpatient KARLA CARDOZOBENJI [id number] 03/07/2014 09:38:00 03/07/2014 23:59:59 CLS Outpatient SABIHA MAST MD [id number] 02/27/2014 16:24:00 02/27/2014 23:59:59 CLS Outpatient KARLA CARDOZOBENJI [id number] 02/07/2014 11:43:00 02/07/2014 23:59:59 CLS Outpatient ITZ JUNIOR APRN [id number] 01/04/2014 13:20:00 01/04/2014 23:59:59 CLS Outpatient BRODY ARAYA MD [id number] 12/22/2013 11:08:00 12/22/2013 23:59:59 CLS Outpatient BRODY ARAYA MD [id number] 12/08/2013 11:17:00 12/08/2013 23:59:59 CLS Outpatient ITZ JUNIOR APRN [id number] 12/08/2013 11:17:00 12/08/2013 23:59:59 CLS Outpatient ITZ JUNIOR APRN [id number] 11/09/2013 13:20:00 11/09/2013 23:59:59 CLS Outpatient ARASH ROTHMAN [id number] 09/20/2013 12:11:00 09/20/2013 23:59:59 [id number] 09/20/2013 12:11:00 09/20/2013 23:59:59 CLS Outpatient MARLENE CABRERA APRN [id number] 09/08/2013 12:22:00 09/08/2013 23:59:59 CLS Outpatient KIKA ARGUETA DO [id number] 07/19/2013 08:49:00 07/19/2013 23:59:59 CLS Outpatient ARASH ROTHMAN [id number] 07/15/2013 14:34:00 07/15/2013 23:59:59 CLS Outpatient REYNALDO VIEIRA APRN [id number] 07/15/2013 14:34:00 07/15/2013 23:59:59 CLS Outpatient REYNALDO VIEIRA APRN [id number] 07/01/2013 10:33:00 07/01/2013 23:59:59 CLS Outpatient BRODY ARAYA MD [id number] 06/15/2013 13:32:00 06/15/2013 23:59:59 CLS Outpatient RAFAEL ROTHMANHOMAR Saucedo [id number] 05/16/2013 09:46:00 05/16/2013 23:59:59 CLS Outpatient MARLENE CABRERA APRN [id number] 04/08/2013 13:42:00 04/08/2013 23:59:59 CLS Outpatient KIKA ARGUETA DO [id number] 04/07/2013 00:00:00 04/07/2013 23:59:59 CLS Outpatient MARLENE CABRERA APRN [id number] 03/23/2013 12:41:00 03/23/2013 23:59:59 CLS Outpatient SABIHA MAST MD [id number] 02/28/2013 10:32:00 02/28/2013 23:59:59 CLS Outpatient REYNALDO VIEIRA APRN [id number] 02/28/2013 10:32:00 02/28/2013 23:59:59 CLS Outpatient REYNALDO VIEIRA APRN [id number] 02/23/2013 12:03:00 02/23/2013 23:59:59 CLS Outpatient REYNALDO VIEIRA APRN [id number] 08/06/2012 13:58:00 08/06/2012 23:59:59 CLS Outpatient RAFAEL ROTHMANHOMAR Saucedo [id number] 08/06/2012 12:23:00 08/06/2012 23:59:59 CLS Outpatient [id number] 08/06/2012 12:23:00 08/06/2012 23:59:59 CLS Outpatient MARLENE CABRERA APRN [id number] 07/21/2012 13:57:00 07/21/2012 23:59:59 CLS Outpatient DILSHAD FLOREZ, ARASH Saucedo [id number] 07/07/2012 12:53:00 07/07/2012 23:59:59 CLS Outpatient KIKA ARGUETA DO [id number] 06/24/2012 17:13:00 06/24/2012 23:59:59 CLS Outpatient [id number] 06/24/2012 17:13:00 06/24/2012 23:59:59 CLS Outpatient [id number] 05/21/2012 11:23:00 05/21/2012 23:59:59 CLS Outpatient REYNALDO VIEIRA APRN [id number] 04/30/2012 13:18:00 04/30/2012 23:59:59 CLS Outpatient [id number] 03/31/2012 10:14:00 03/31/2012 23:59:59 CLS Outpatient MASSIEL FERGUSON DO [id number] 01/03/2013 14:23:00 Document Registration [id number] 12/28/2012 11:34:00 Document Registration [id number] 12/25/2012 12:36:00 Document Registration [id number] 11/19/2012 12:56:00 Document Registration [id number] 11/15/2012 15:50:00 Document Registration [id number] 11/12/2012 10:49:00 Document Registration [id number] 11/05/2012 10:54:00 Document Registration [id number] 10/28/2012 12:49:00 Document Registration [id number] 09/28/2012 15:46:00 Document Registration [id number] 09/22/2012 17:00:00 Document Registration [id number] 09/16/2012 14:58:00 Document Registration [id number] 09/16/2012 14:58:00 Document Registration [id number] 09/16/2012 10:42:00 Document Registration [id number] 03/25/2017 11:09:00 Document Registration [id number] 10/06/2017 09:40:00 10/06/2017 23:59:59 CLS Outpatient SABIHA MAST MD [facility] [id number] 10/06/2017 09:40:00 Document Registration [id number] 05/01/2017 13:30:00 Document Registration [id number] 03/24/2017 14:20:00 Document Registration [id number] 04/21/2016 05:05:00 Document Registration [id number] 02/19/2015 09:08:50 ACT Document Registration [id number] 05/29/2016 05:05:00 Document Registration [id number] 12/29/2017 16:45:00 12/29/2017 20:00:00 DIS Emergency ZOFIA MORA DO [facility] ER VOMITING;BP ISSUES [id number] 12/29/2017 05:57:00 12/29/2017 11:30:00 DIS Outpatient MARISA HOOK MD [facility] SDC BILATERAL RENAL STONES [id number] 12/28/2017 05:33:00 12/28/2017 10:35:00 DIS Outpatient MARISA HOOK MD [facility] PREOP BILAT RENAL STONE [id number] 12/25/2017 08:51:00 12/25/2017 23:59:59 CLS Outpatient MARISA HOOK MD [facility] RAD RT RENAL STONE [id number] 12/25/2017 19:24:00 12/25/2017 21:34:00 DIS Emergency LAURA FINCH APRN [facility] ER KIDNEY STONE [id number] 12/22/2017 17:40:00 12/22/2017 21:32:00 DIS Outpatient ANGEL MATA MD [facility] ER LOWER BACK PAIN;ABD PAIN [id number] 10/27/2017 09:22:00 10/27/2017 12:37:00 DIS Outpatient NETTIE HAHN DO [facility] ENDO DIARRHEA [id number] 10/21/2017 12:15:00 10/21/2017 13:12:00 DIS Outpatient NETTIE HAHN DO [facility] PREOP COLONOSCOPY [id number] 05/01/2017 10:55:00 05/01/2017 23:59:59 CLS Outpatient Anshu NEWBERRY MD [facility] LAB I73.9 E78.5 I10 R00.2 R06.02 [id number] 04/09/2017 08:02:00 04/09/2017 23:59:59 CLS Outpatient Anshu NEWBERRY MD [facility] CARD R06.02 SOB,I10 HYPERTENSION [id number] 04/06/2017 10:00:00 04/06/2017 23:59:59 CLS Outpatient Anshu NEWBERRY MD [facility] CARD E78.5 HYPERLIPIDEMIA, R00.2 PLAPITATIONS, [id number] 02/23/2017 12:59:00 02/23/2017 15:27:00 DIS Emergency ANGEL MATA MD [facility] ER RT LEG PAIN [id number] 07/14/2016 12:57:00 08/06/2016 15:46:00 DIS Outpatient ARMINDA FLEMING [facility] REHAB THORACIC HNP; DDD; SPONDYLOSIS [id number] 06/11/2016 05:57:00 06/11/2016 09:50:00 DIS Out[facility] [facility] [id number] 06/10/2016 09:26:00 06/10/2016 11:57:00 DIS Outpatient MARISA HOOK MD [facility] PREOP CPP [id number] 06/07/2016 12:01:00 06/07/2016 14:25:00 DIS Emergency MAYRA QUINONES [facility] ER UTI/BLADDER PAIN [id number] 04/14/2016 13:38:00 04/14/2016 23:59:59 CLS Outpatient SABIHA MAST MD [facility] RAD ABNORMAL MAMMO [id number] 03/24/2016 08:44:00 03/24/2016 11:12:00 DIS Emergency ZABRINA WOLF MD [facility] ER SEIZURE [id number] 03/03/2016 12:27:00 03/03/2016 13:18:00 DIS Outpatient BENJI LOMBARDO MD [facility] CARD DISC DISORDER [id number] 02/15/2016 12:40:00 02/15/2016 14:43:00 DIS Outpatient BENJI LOMBARDO MD [facility] CARD DISC DISORDER RADICULOPATHY THORACIC [id number] 02/01/2016 10:48:00 02/01/2016 12:16:00 DIS Outpatient BENJI LOMBARDO MD [facility] CARD DISC DISORDER/C RADICUOPATHY [id number] 01/03/2016 11:36:00 01/03/2016 13:11:00 DIS Emergency ROBI MAGAÑA MD [facility] ER BACK PAIN [id number] 12/06/2015 21:19:00 12/07/2015 00:52:00 DIS Emergency CONCHITA WOLF MDOTHY D [facility] ER POSS KIDNEY STONE [id number] 10/22/2015 13:06:00 10/22/2015 15:15:00 DIS Emergency LAURA FINCH APRN [facility] ER LOW BP, BACK PAIN, VAGINAL DISCOMFORT [id number] 10/13/2015 15:18:00 10/13/2015 19:56:00 DIS Emergency ROME SAUCEDO, MAGGIE Curry [facility] ER BACK PAIN, BLOOD IN URINE , SLUGGISH [id number] 09/12/2015 17:41:00 09/12/2015 20:21:00 DIS Emergency ZOFIA MORA DO [facility] ER BACK PAIN,NAUSEA [id number] 08/03/2015 12:57:00 08/03/2015 23:59:59 CLS Outpatient SABIHA MAST MD [facility] RAD SCREENING [id number] 04/09/2015 15:30:00 04/09/2015 18:45:00 DIS Emergency LAURA FINCH APRN [facility] ER BACK PAIN, NECK PAIN, R ARM PAIN [id number] 02/19/2015 09:08:00 02/19/2015 23:59:59 CLS Outpatient SABIHA MAST MD [facility] RAD THORACIC DISC HERNIATION [id number] 02/09/2015 08:30:00 02/09/2015 10:27:00 DIS Emergency ZOFIA MORA DO [facility] ER BACK PAIN [id number] 11/30/2014 13:37:00 11/30/2014 23:59:59 CLS Outpatient MARISA HOOK MD [facility] RAD STONES [id number] 11/27/2014 16:43:00 11/27/2014 19:29:00 DIS Emergency LAURA FINCH APRN [facility] ER ABD PAIN,NAUSEA,VOMITING [id number] 11/07/2014 05:57:00 11/07/2014 09:40:00 DIS Outpatient MARISA HOOK MD [facility] SDC LEFT RENAL STONE [id number] 11/03/2014 15:38:00 11/03/2014 23:59:59 CLS Outpatient MILADYS SAUCEDO, MARISA Gant [facility] PREOP LEFT RENAL STONE [id number] 10/30/2014 13:05:00 10/30/2014 23:59:59 CLS Outpatient MARISA HOOK MD [facility] RAD STONES [id number] 10/26/2014 16:56:00 10/26/2014 21:22:00 DIS Emergency MAYRA QUINONES [facility] ER DISCOLORED BOWEL [id number] 10/13/2014 17:28:00 10/13/2014 20:27:00 DIS Emergency LAURA FINCH GUN EXAMINER [facility] ER BACK PAIN [id number] 09/15/2014 17:23:00 09/15/2014 19:28:00 DIS Emergency ANGEL MATA MD [facility] ER L SIDE PAIN [id number] 09/03/2014 12:35:00 09/03/2014 14:32:00 DIS Emergency LAURA FINCH APRN [facility] ER SOA [id number] 07/01/2014 02:39:00 07/01/2014 05:28:00 DIS Emergency REYNALDO LONDONO DO [facility] ER BACK STOMACH PAIN [id number] 06/20/2014 16:01:00 06/20/2014 20:05:00 DIS Emergency MAYRA QUINONES [facility] ER HEART RACE;NAUSEA; HEADACHE [id number] 05/10/2014 16:40:00 05/10/2014 20:21:00 DIS Emergency MAYRA QUINONES [facility] ER FALL [id number] 04/11/2014 07:19:00 04/11/2014 11:25:00 DIS Emergency ZABRINA WOLF MD [facility] ER SEIZURE [id number] 04/05/2014 11:34:00 04/05/2014 13:50:00 DIS Emergency ZABRINA WOLF MD [facility] ER MULTIPLE COMPLAINTS [id number] 03/24/2014 08:55:00 03/24/2014 11:40:00 DIS Emergency ROBI MAGAÑA MD [facility] ER SEIZURE [id number] 03/02/2014 10:14:00 03/02/2014 12:26:00 DIS Emergency LAURA FINCH APRN [facility] ER ABDOMINAL PAIN/NAUSEA [id number] 02/28/2014 14:26:00 02/28/2014 23:59:59 CLS Outpatient MARISA HOOK MD [facility] RAD STONES [id number] 02/18/2014 16:13:00 02/18/2014 18:26:00 DIS Emergency ZOFIA MORA DO [facility] ER POST SURGERY BLEEDING [id number] 02/15/2014 06:52:00 02/15/2014 12:20:00 DIS Outpatient MARISA HOOK MD [facility] RIGHT STONE [id number] 02/14/2014 07:35:00 02/14/2014 23:59:59 CLS Outpatient MARISA HOOK MD [facility] PREOP RIGHT STONE [id number] 01/31/2014 18:09:00 02/03/2014 13:40:00 DIS Inpatient SABIHA MAST MD [facility] 4TH ACUTE RENAL FAILURE; HYPOTENSION [id number] 01/21/2014 17:37:00 01/21/2014 18:00:00 DIS Emergency MAYRA QUINONES [facility] ER POST SURGERY RASH [id number] 01/12/2014 06:04:00 01/12/2014 10:50:00 DIS Outpatient NETTIE HAHN DO [facility] SDC MASS BACK [id number] 01/10/2014 05:58:00 01/10/2014 09:48:00 DIS Outpatient MARISA HOOK MD [facility] BILATERAL RENAL STONES [id number] 01/06/2014 08:11:00 01/06/2014 23:59:59 CLS Outpatient NETTIE HAHN DO [facility] PREOP MASS BACK [id number] 01/04/2014 09:45:00 01/04/2014 23:59:59 CLS Outpatient MARISA HOOK MD [facility] PREOP BILATERAL RENAL STONES [id number] 01/02/2014 14:09:00 01/02/2014 16:43:00 DIS Emergency LAURA FINCH GUN EXAMINER [facility] ER RIGHT FLANK PAIN [id number] 12/23/2013 09:30:00 12/23/2013 23:59:59 CLS Outpatient BRODY ARAYA MD [facility] RAD PANCREATITIS,PAIN [id number] 12/20/2013 12:06:00 12/20/2013 23:59:59 CLS Outpatient MARISA HOOK MD [facility] RAD STONE [id number] 12/15/2013 14:39:00 12/18/2013 10:38:00 DIS Inpatient BRODY ARAYA MD [facility] 4TH ACUTE PANCREATITIS BILATERAL NEPHROLITHIASIS [id number] 12/14/2013 12:05:00 12/14/2013 14:58:00 DIS Emergency MORGAN DOZOFIA K [facility] ER RIGHT FLANK PAIN/BLOOD IN URINE [id number] 10/25/2013 16:23:00 10/25/2013 17:26:00 DIS Emergency MORGAN DOZOFIA K [facility] ER SEIZURE [id number] 09/25/2013 01:21:00 09/25/2013 04:03:00 DIS Emergency MORGAN DOZOFIA [facility] ER N/V/D [id number] 07/21/2013 09:02:00 07/21/2013 14:31:00 DIS Emergency ROBI MAGAÑA MD [facility] ER LOWER ABD PAIN [id number] 07/11/2013 09:15:00 07/11/2013 23:59:59 CLS Outpatient MARISA HOOK MD [facility] RAD STONES, ABD PAIN [id number] 06/08/2013 12:35:00 06/08/2013 23:59:59 CLS Outpatient ROMMEL MCMILLAN GUN EXAMINER [facility] RAD BREAST PAIN [id number] 01/04/2013 13:00:00 01/04/2013 23:59:59 CLS Outpatient MORIAH JACOBS VALIDATION ANALYST [facility] QUICK [id number] 01/04/2013 13:06:00 01/04/2013 16:41:00 DIS Emergency MAYRA QUINONES [facility] ER POSS KIDNEY STONE [id number] 10/07/2012 14:05:00 10/07/2012 23:59:59 CLS Outpatient YASSINE KNOX VALIDATION ANALYST [facility] RAD LEFT BREAST MASS, PAIN [id number] 01/13/2018 10:00:00 PEN Preadjohn HOOK MD, MARISA Gant [facility] SDC LEFT STONE [id number] 08/30/2015 07:45:00 Document Registration [id number] 03/19/2015 13:32:00 Document Registration [id number] 08/08/2014 06:22:00 Document Registration [id number] 08/03/2014 06:33:00 Document Registration [id number] 06/30/2014 12:06:00 Document Registration [id number] 06/30/2014 12:06:00 Document Registration [id number] 06/30/2014 12:06:00 Document Registration [id number] 06/30/2014 12:06:00 Document Registration [id number] 06/30/2014 12:06:00 Document Registration [id number] 06/30/2014 12:06:00 Document Registration [id number] 06/30/2014 12:06:00 Document Registration [id number] 06/30/2014 12:06:00 Document Registration [id number] 06/30/2014 12:06:00 Document Registration [id number] 06/30/2014 12:06:00 Document Registration [id number] 06/30/2014 12:06:00 Document Registration [id number] 06/30/2014 12:06:00 Document Registration [id number] 06/30/2014 12:06:00 Document Registration [id number] 05/12/2014 11:04:00 Document Registration [id number] 05/12/2014 11:04:00 Document Registration [id number] 03/09/2012 12:38:00 Document Registration [id number] 03/08/2012 08:23:00 Document Registration [id number] 02/16/2012 09:54:00 Document Registration [id number] 02/09/2012 06:13:00 Document Registration [id number] 02/04/2012 09:15:00 Document Registration [id number] 01/08/2012 13:13:00 Document Registration [id number] 01/03/2012 12:42:00 Document Registration [id number] 01/02/2012 14:02:00 Document Registration [id number] 12/18/2011 16:38:00 Document Registration [id number] 11/29/2011 10:12:00 Document Registration [id number] 11/11/2011 11:28:00 Document Registration [id number] 10/14/2011 17:21:00 Document Registration [id number] 10/12/2011 16:45:00 Document Registration [id number] 08/18/2011 09:12:00 Document Registration [id number] 08/04/2011 18:48:00 Document Registration [id number] 07/28/2011 21:05:00 Document Registration [id number] 07/17/2011 09:36:00 Document Registration [id number] 07/10/2011 15:40:00 Document Registration [id number] 07/09/2011 20:50:00 Document Registration [id number] 06/13/2011 08:19:00 Document Registration [id number] 06/08/2011 19:45:00 Document Registration [id number] 06/06/2011 05:38:00 Document Registration [id number] 06/03/2011 13:07:00 Document Registration [id number] 05/30/2011 10:31:00 Document Registration [id number] 05/12/2011 14:45:00 Document Registration [id number] 05/08/2011 05:32:00 Document Registration [id number] 05/04/2011 13:21:00 Document Registration [id number] 12/27/2010 22:38:00 Document Registration [id number] 12/13/2010 12:21:00 Document Registration [id number] 11/21/2010 22:19:00 Document Registration [id number] 10/26/2010 14:28:00 Document Registration [id number] 10/11/2010 08:23:00 Document Registration [id number] 10/07/2010 11:15:00 Document Registration [id number] 10/05/2010 07:19:00 Document Registration [id number] 10/01/2010 21:19:00 Document Registration [id number] 09/09/2010 22:34:00 Document Registration [id number] 09/05/2010 11:30:00 Document Registration [id number] 09/03/2010 14:01:00 Document Registration [id number] 09/02/2010 15:19:00 Document Registration [id number] 08/26/2010 08:59:00 Document Registration [id number] 08/21/2010 10:13:00 Document Registration [id number] 08/20/2010 15:09:00 Document Registration [id number] 08/18/2010 15:05:00 Document Registration [id number] 08/05/2010 12:01:00 Document Registration [id number] 07/31/2010 14:13:00 Document Registration [id number] 07/30/2010 05:42:00 Document Registration [id number] 07/25/2010 10:15:00 Document Registration [id number] 07/11/2010 11:22:00 Document Registration [id number] 05/14/2010 13:45:00 Document Registration [id number] 04/30/2010 12:53:00 Document Registration [id number] 04/29/2010 12:26:00 Document Registration [id number] 09/12/2009 12:06:00 Document Registration [id number] 08/08/2009 12:06:00 Document Registration [id number] 06/26/2009 13:22:00 Document Registration [id number] 06/13/2009 11:36:00 Document Registration [id number] 06/08/2009 10:26:00 Document Registration [id number] 05/28/2009 15:11:00 Document Registration [id number] 05/22/2009 11:14:00 Document Registration [id number] 05/18/2009 12:08:00 Document Registration [id number] 04/29/2009 19:12:00 Document Registration [id number] 03/30/2009 09:39:00 Document Registration [id number] 12:05:00 Document Registration [id number] 03/19/2009 15:24:00 Document Registration [id number] 09/15/2006 11:53:00 Document Registration [id number] 01/12/2006 12:03:00 Document Registration [id number] 12/24/2005 10:30:00 Document Registration [id number] 12/18/2005 15:24:00 Document Registration [id number] 08/14/2016 10:09:00 Document Registration
[2018-01-13] MEDS ORDERED: meTOprolol 5 MG/5 ML (LOPRESSOR) VIAL IV ONE (22:45)
[2018-01-13] MEDS ORDERED: LORazepam INJ 2 MG/ML (ATIVAN) VIAL IVP ONE (23:00)
[2018-01-13] MEDS ORDERED: diphenhydrAMINE 50 MG/ML INJ (BENADRYL) IM ONE (23:15)
[2018-01-14] VITALS (7 sets, daily range): BP systolic 158–187; BP diastolic 85–105
[2018-01-14] MEDS ORDERED: LORazepam INJ 2 MG/ML (ATIVAN) VIAL IV PRN (01:30)
[2018-01-14] MEDS ORDERED: fentaNYL INJECTION 100 MCG/2 ML AMP IV PRN (01:30)
[2018-01-14] MEDS: NS IV 1000 ML 1,000 ML IV SCH ×3 (02:08→16:55)
[2018-01-14] MEDS: PROMETHAZINE INJ 25 MG/ML (PHENERGAN) AMP IV PRN ×4 (02:09→16:55)
[2018-01-14] MEDS ORDERED: meTOprolol 5 MG/5 ML (LOPRESSOR) VIAL IV ONE (04:30)
[2018-01-14 06:34] LABS: BASOPHILS % (AUTO) 0 % (0-10); EOSINOPHILS % (AUTO) 0 % (0-10); HEMATOCRIT 39 % (35-52); HEMOGLOBIN 13.5 G/DL (11.5-16.0); LYMPHOCYTES # (AUTO) 2.1 X 10^3 (1.0-4.0); LYMPHOCYTES % (AUTO) 14 % (12-44); MEAN CORPUSCULAR HEMOGLOBIN 28 PG (25-34); MEAN CORPUSCULAR HGB CONC 35 G/DL (32-36); MEAN CORPUSCULAR VOLUME 82 FL (80-99); MEAN PLATELET VOLUME 11.7 FL (7.4-10.4); MONOCYTES # (AUTO) 1.3 X 10^3 (0.0-1.0); MONOCYTES % (AUTO) 9 % (0-12); NEUTROPHILS # (AUTO) 11.7 X 10^3 (1.8-7.8); NEUTROPHILS % (AUTO) 77 % (42-75); PLATELET COUNT 215 10^3/uL (130-400); RED BLOOD COUNT 4.76 10^6/uL (4.35-5.85); RED CELL DISTRIBUTION WIDTH 12.8 % (10.0-14.5); WHITE BLOOD COUNT 15.2 10^3/uL (4.3-11.0)
[2018-01-14 06:47] LABS: BAND NEUTROPHILS 0 %; BASOPHILS % (MANUAL) 0 %; EOSINOPHILS % (MANUAL) 0 %; LYMPHOCYTES % (MANUAL) 14 %; MONOCYTES % (MANUAL) 7 %; NEUTROPHILS % (MANUAL) 79 %
[2018-01-14 06:48] LABS: RBC MORPH NORMAL
[2018-01-14 07:12] LABS: ALBUMIN 4.2 GM/DL (3.2-4.5); BILIRUBIN,TOTAL 0.5 MG/DL (0.1-1.0); CALCIUM 9.5 MG/DL (8.5-10.1); CREATININE SERUM 1.15 MG/DL (0.60-1.30); POTASSIUM 3.7 MMOL/L (3.6-5.0); TOTAL PROTEIN 7.2 GM/DL (6.4-8.2)
[2018-01-14] MEDS ORDERED: GABA800T2 PO (08:35)
[2018-01-14] MEDS ORDERED: ATOR10TA66 PO (08:35)
[2018-01-14] MEDS ORDERED: HYDR-3812 PO (08:38)
[2018-01-14] MEDS ORDERED: HYDROcodone/APAP 5 MG/325 MG (LORTAB) TAB PO PRN (10:30)
[2018-01-14] MEDS ORDERED: diphenhydrAMINE 50 MG/ML INJ (BENADRYL) IVP PRN (11:30)
[2018-01-14] MEDS ORDERED: ACETAMINOPHEN 500 MG TAB (TYLENOL) PO PRN (11:30)
[2018-01-14] MEDS ORDERED: METOCLOPRAMIDE INJ 10 MG/2 ML (REGLAN) IVP PRN (11:30)
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
--- NOTE | 2018-01-14 12:05 | CONSULTATION REPORT ---
DATE OF SERVICE: 01/14/2018 ATTENDING PHYSICIAN: Dr. Lima. SUMMARY: A 47-year-old white lady, who has long history of urolithiasis that had an uneventful successful left ureteral lithotripsy yesterday, did well. She went home and had intractable nausea and vomiting with dehydration. She was subsequently admitted to the hospital under Dr. Lima service. She is feeling somewhat better today. IMPRESSION: Nausea and vomiting postoperatively. RECOMMENDATIONS: May discharge anytime and just follow up the previous plan postoperatively of yesterday. This was fully explained to her and her . Job ID: [id number] DocumentID: [id number] Dictated Date: 01/14/2018 11:44:59 Avian Keeper Date: 01/14/2018 12:05:18 Dictated By: MARISA HOOK MD
[2018-01-14] MEDS ORDERED: ENOXAPARIN 40 MG/0.4 ML (LOVENOX) SYR SC SCH (12:15)
[2018-01-14] MEDS ORDERED: ENOXAPARIN 40 MG/0.4 ML (LOVENOX) SYR ONE (12:17)
[2018-01-14] MEDS: GABAPENTIN 400 MG (NEURONTIN) CAP PO SCH (20:59)
[2018-01-14] MEDS ORDERED: ATORVASTATIN 10 MG (LIPITOR) TABLET PO SCH (21:00)
[2018-01-14] MEDS ORDERED: traZODone 150 MG (DESYREL) TABLET PO SCH (21:00)
[2018-01-14] MEDS ORDERED: QUEtiapine 100 MG (SEROquel) TAB IMMEDIATE RELEASE PO SCH (21:00)
[2018-01-14] MEDS ORDERED: ALPRAZolam 1 MG (XANAX) TAB PO SCH (21:00)
[2018-01-14] MEDS ORDERED: meTOprolol TARTRATE 50 MG (LOPRESSOR) TAB PO SCH (21:00)
[2018-01-15 00:09] VITALS: BP 149/92
[2018-01-15] MEDS: NS IV 1000 ML 1,000 ML IV SCH ×2 (01:32→08:20)
[2018-01-15 04:00] VITALS: BP 141/82
[2018-01-15 06:10] LABS: HEMOGLOBIN 11.7 G/DL (11.5-16.0); MEAN PLATELET VOLUME 11.6 FL (7.4-10.4); RED BLOOD COUNT 4.1 10^6/uL (4.35-5.85); RED CELL DISTRIBUTION WIDTH 13.5 % (10.0-14.5); WHITE BLOOD COUNT 6.9 10^3/uL (4.3-11.0)
[2018-01-15 06:33] LABS: BUN/CREATININE RATIO 11; CALCIUM 8.3 MG/DL (8.5-10.1); CARBON DIOXIDE 18 MMOL/L (21-32); CHLORIDE 114 MMOL/L (98-107); CREATININE SERUM 0.91 MG/DL (0.60-1.30); GFR ESTIMATED > 60; GLUCOSE 93 MG/DL (70-105); POTASSIUM 3.5 MMOL/L (3.6-5.0); SODIUM 142 MMOL/L (135-145)
[2018-01-15 08:16] VITALS: BP 172/85
[2018-01-15] MEDS: GABAPENTIN 400 MG (NEURONTIN) CAP PO SCH (08:19)
[2018-01-15] MEDS ORDERED: amLODIPine 2.5MG (NORVASC) TAB PO SCH (09:00)
--- OUTSIDE RECORDS SUMMARY | 2018-01-15 09:17 | XMS REPORT | Clinical Summary ---
Author Author [facility] Organization [facility] Address Unknown Phone Unavailable Care Team Providers Care Provider Network Analyst Name Role Phone Majo Young RN Unavailable Unavailable Areli Sanchez DO PCP Source Comments Some departments are not documenting in the electronic medical record. If you do not see the information that you expected, contact Release of Information in the Health Information Management department at [phone] for further assistance in locating additional records.[facility] Allergies Active Allergy Reactions Severity Noted Date [...]
--- OUTSIDE RECORDS SUMMARY | 2018-01-15 10:07 | XMS REPORT | Continuity of Care Document ---
Author Author [facility] Address Unknown Phone Unavailable Allergies Active [...] tablet Drug Allergy 08/06/2012 Yes Nitrofurantoin Macrocrystal [id number] Drug Allergy Unknown N/A 2013 Yes tramadol [id number] Drug Allergy Unknown HAS TAKEN BEFOR 01/10/2014 Yes cephalexin [id number] Drug Allergy Mild NAUSEA 11/07/2014 Yes hydrocodone [id number] Drug Allergy Unknown itching 12/28/2017 Yes ketorolac tromethamine [id number] Drug Allergy Unknown N/A 12/28/2017 Yes levofloxacin [id number] Drug Allergy Unknown N/A 12/28/2017 Yes nitrofurantoin [id number] Drug Allergy Unknown N/A 12/28/2017 Yes ondansetron [id number] Drug Allergy Unknown N/A 12/28/2017 Yes Sulfa (Sulfonamide Antibiotics) [id number] Drug Allergy Unknown N/A 2017 Yes tramadol [id number] Drug Allergy Unknown N/A 12/28/2017 Yes hydrocodone [id number] Drug Allergy Unknown itching. Pt has 12/29/2017 [...] NOS 09/19/2010 311 [place] DEPRESS NOS 09/19/2010 [facility], ARASH R 311 MO DEPRESS NOS 09/19/2010 311 MO DEPRESS NOS 09/19/2010 [facility] ARASH R 311 MO DEPRESS NOS [...] CABRERA APRN 311 MO DEPRESS NOS 09/19/2010 [facility], ARASH R 311 MO DEPRESS NOS 09/19/2010 BRODY ARAYA MD 311 MO DEPRESS NOS 09/19/2010 REYNALDO VIEIRA APRN 311 MO DEPRESS NOS 09/19/2010 [facility], ARASH R 311 MO DEPRESS NOS 09/19/2010 REYNALDO VIEIRA APRN 311 MO DEPRESS NOS 09/19/2010 ARGUETA BRO DE LA TORREA K 311 MO DEPRESS NOS 09/19/2010 [facility], ARASH R 311 MO DEPRESS NOS 09/19/2010 MARLENE CABRERA APRN 311 MO DEPRESS NOS 09/19/2010 [facility], ARASH R 311 MO DEPRESS NOS [...] 250.00 DIABETES II CONTROLLED (UNCOMPLICATED) 03/17/2011 KIKA RAGUETA DO K 272.4 HYPERLIPIDEMIA 03/17/2011 KIKA ARGUETA DO K 300.00 ANXIETY UNSPEC 03/17/2011 KIKA ARGUETA DO K 530.81 GERD 03/17/2011 KIKA ARGUETA DO 729.1 FIBROMYALGIA 03/17/2011 250.00 DIABETES II CONTROLLED (UNCOMPLICATED) 03/17/2011 272.4 HYPERLIPIDEMIA 03/17/2011 300.00 ANXIETY UNSPEC 03/17/2011 530.81 GERD 03/17/2011 729.1 FIBROMYALGIA 03/17/2011 [facility], ARASH R 250.00 DIABETES II CONTROLLED (UNCOMPLICATED) 03/17/2011 [facility] 272.4 HYPERLIPIDEMIA 03/17/2011 [facility] R 300.00 ANXIETY UNSPEC 03/17/2011 [facility] R 530.81 GERD 03/17/2011 [facility] R 729.1 FIBROMYALGIA 03/17/2011 250.00 DIABETES II CONTROLLED (UNCOMPLICATED) 03/17/2011 272.4 HYPERLIPIDEMIA 03/17/2011 300.00 ANXIETY UNSPEC 03/17/2011 530.81 GERD 03/17/2011 729.1 FIBROMYALGIA 03/17/2011 [facility] R 250.00 DIABETES II CONTROLLED (UNCOMPLICATED) 03/17/2011 [facility] R 272.4 HYPERLIPIDEMIA 03/17/2011 [facility] R 300.00 ANXIETY UNSPEC 03/17/2011 [facility] R 530.81 GERD 03/17/2011 [facility] R 729.1 FIBROMYALGIA 03/17/2011 MARLENE CABRERA [...] VIEIRA APRN 300.00 ANXIETY UNSPEC 03/17/2011 REYNALDO VIEIAR APRN 530.81 GERD 03/17/2011 REYNALDO VIEIRA APRN [...] MARLENE CABRERA APRN 530.81 GERD 03/17/2011 MARLENE CBARERA APRN 729.1 FIBROMYALGIA 03/17/2011 MARLENE CABRERA APRN 250.00 DIABETES II CONTROLLED (UNCOMPLICATED) 03/17/2011 MARLENE CABRERA APRN 272.4 HYPERLIPIDEMIA 03/17/2011 MARLENE CABRERA APRN 300.00 ANXIETY UNSPEC 03/17/2011 MARLENE CABRERA APRN 530.81 GERD 03/17/2011 MARLENE CABRERA APRN 729.1 FIBROMYALGIA 03/17/2011 [facility], ARASH R 250.00 DIABETES II CONTROLLED (UNCOMPLICATED) 03/17/2011 [facility], ARASH R 272.4 HYPERLIPIDEMIA 03/17/2011 [facility], ARASH R 300.00 ANXIETY UNSPEC 03/17/2011 [facility], ARASH R 530.81 GERD 03/17/2011 [facility], ARASH R 729.1 FIBROMYALGIA 03/17/2011 BRODY ARAYA MD 250.00 DIABETES II CONTROLLED (UNCOMPLICATED) 03/17/2011 BRODY ARAYA MD 272.4 HYPERLIPIDEMIA 03/17/2011 BRODY ARAYA MD 300.00 ANXIETY UNSPEC 03/17/2011 BRODY ARAYA MD 530.81 GERD 03/17/2011 BRODY ARAYA MD 729.1 FIBROMYALGIA 03/17/2011 REYNALDO VIEIRA APRN 250.00 DIABETES II CONTROLLED (UNCOMPLICATED) 03/17/2011 REYNALDO VIEIRA APRN 272.4 HYPERLIPIDEMIA 03/17/2011 [facility] 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, REYNALDO T 300.00 ANXIETY UNSPEC 03/17/2011 REYNALDO VIEIRA APRN 530.81 GERD 03/17/2011 REYNALDO VIEIRA APRN 729.1 FIBROMYALGIA 03/17/2011 [facility], ARASH R 250.00 DIABETES II CONTROLLED (UNCOMPLICATED) 03/17/2011 [facility], ARASH R 272.4 HYPERLIPIDEMIA 03/17/2011 [facility], ARASH R 300.00 ANXIETY UNSPEC 03/17/2011 [facility], ARASH R 530.81 GERD 03/17/2011 [facility] R 729.1 FIBROMYALGIA 03/17/2011 REYNALDO VIEIRA [...] ARGUETA DO, KIKA K 729.1 FIBROMYALGIA 03/17/2011 [facility], ARASH R 250.00 DIABETES II CONTROLLED (UNCOMPLICATED) 03/17/2011 [facility], ARASH R 272.4 HYPERLIPIDEMIA 03/17/2011 [facility] R 300.00 ANXIETY UNSPEC 03/17/2011 [facility], ARASH R 530.81 GERD 03/17/2011 [facility] R 729.1 FIBROMYALGIA 03/17/2011 MARLENE CABRERA APRN 250.00 DIABETES II CONTROLLED (UNCOMPLICATED) 03/17/2011 MARLENE CABRERA APRN 272.4 HYPERLIPIDEMIA 03/17/2011 MARLENE CABRERA APRN 300.00 ANXIETY UNSPEC 03/17/2011 MARLENE CABRERA APRN 530.81 GERD 03/17/2011 MARLENE CABRERA APRN 729.1 FIBROMYALGIA 03/17/2011 [facility], ARASH R 250.00 DIABETES II CONTROLLED (UNCOMPLICATED) 03/17/2011 [facility], ARASH R 272.4 HYPERLIPIDEMIA 03/17/2011 [facility], ARASH R 300.00 ANXIETY UNSPEC 03/17/2011 [facility], ARASH R 530.81 GERD 03/17/2011 [facility], ARASH R 729.1 FIBROMYALGIA 03/17/2011 ROSA [...] ITZ JUNIOR APRN 729.1 FIBROMYALGIA 03/17/2011 BRODY ARAYA MD N [...] JUNIOR APRN J 272.4 HYPERLIPIDEMIA 03/17/2011 ITZ JUNIRO APRN J 300.00 ANXIETY UNSPEC 03/17/2011 ITZ [...] 250.00 DIABETES II CONTROLLED (UNCOMPLICATED) 03/17/2011 [employer] 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, ITZ J 272.4 HYPERLIPIDEMIA 03/17/2011 SANDI LASSITER, TIZ J 300.00 ANXIETY UNSPEC 03/17/2011 SANDI LASSITER, [...] INFECTION 04/02/2011 465.9 UPPER RESPIRATORY INFECTION 04/02/2011 [facility], ARASH R 465.9 UPPER RESPIRATORY INFECTION [...] CABRERA APRN 465.9 Upper Respiratory Infection 04/02/2011 [facility], ARASH R 465.9 Upper Respiratory Infection 04/02/2011 BRODY ARAYA MD 465.9 Upper Respiratory Infection 04/02/2011 REYNALDO VIEIRA APRN T 465.9 Upper Respiratory Infection 04/02/2011 [facility], ARASH R 465.9 Upper Respiratory Infection 04/02/2011 REYNALDO VIEIRA APRN T 465.9 Upper Respiratory Infection 04/02/2011 KIKA ARGUETA DO K 465.9 Upper Respiratory Infection 04/02/2011 [facility], ARASH R 465.9 Upper Respiratory Infection 04/02/2011 MARLENE CABRERA APRN 465.9 Upper Respiratory Infection 04/02/2011 [facility], ARASH R 465.9 Upper Respiratory Infection [...] TRACT INFECTION 04/15/2011 780.52 INSOMNIA UNSPECIFIED 04/15/2011 [facility], ARASH R 599.0 URINARY TRACT INFECTION 04/15/2011 [facility], ARASH R 780.52 INSOMNIA UNSPECIFIED 04/15/2011 599.0 URINARY TRACT INFECTION 04/15/2011 780.52 INSOMNIA UNSPECIFIED 04/15/2011 [facility], ARASH R 599.0 URINARY TRACT INFECTION 04/15/2011 [facility], ARASH R 780.52 INSOMNIA UNSPECIFIED 04/15/2011 [...] MARLENE CABRERA APRN 780.52 INSOMNIA UNSPECIFIED 04/15/2011 [facility], ARASH R 599.0 Urinary Tract Infection 04/15/2011 [facility], ARASH R 780.52 INSOMNIA UNSPECIFIED 04/15/2011 BRODY ARAYA MD 599.0 Urinary Tract Infection 04/15/2011 BRODY ARAYA MD 780.52 INSOMNIA UNSPECIFIED 04/15/2011 REYNALDO VIEIRA APRN T 599.0 Urinary Tract Infection 04/15/2011 REYNALDO VIEIRA APRN T 780.52 INSOMNIA UNSPECIFIED 04/15/2011 [facility], ARASH R 599.0 Urinary Tract Infection 04/15/2011 [facility], ARASH R 780.52 INSOMNIA UNSPECIFIED 04/15/2011 DARIEL LASSITER REYNALDO T 599.0 Urinary Tract Infection 04/15/2011 DARIEL LASSITER REYNLADO T 780.52 INSOMNIA UNSPECIFIED 04/15/2011 ARGUETA DO, KIKA K 599.0 Urinary Tract Infection 04/15/2011 ARGUETA DO, KIKA K 780.52 INSOMNIA UNSPECIFIED 04/15/2011 [facility], ARASH R 599.0 Urinary Tract Infection 04/15/2011 [facility], ARASH R 780.52 INSOMNIA UNSPECIFIED 04/15/2011 MARLENE CABRERA APRN D 599.0 Urinary Tract Infection 04/15/2011 MARLENE CABRERA APRN 780.52 INSOMNIA UNSPECIFIED 04/15/2011 [facility], ARASH R 599.0 Urinary Tract Infection 04/15/2011 [facility], ARASH R 780.52 INSOMNIA UNSPECIFIED 04/15/2011 ROSA JUNIOR APRNA J 599.0 Urinary Tract Infection 04/15/2011 ROSA JUNIOR APRNA J 780.52 INSOMNIA UNSPECIFIED 04/15/2011 ROSA JUNIOR APRNA J 599.0 Urinary Tract Infection 04/15/2011 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, ITZ J 780.52 INSOMNIA UNSPECIFIED 04/15/2011 BRODY [...] 599.0 Urinary Tract Infection 04/15/2011 SANDI LASSITER, TIZ J 780.52 INSOMNIA UNSPECIFIED 04/15/2011 ARGUETA DO, KIKA K 599.0 Urinary Tract Infection 04/15/2011 ARGUETA DO, KIKA K 780.52 INSOMNIA UNSPECIFIED 05/04/2011 Ot 789.06 ABDOMINAL PAIN, EPIGASTRIC 05/08/2011 Ot 530.81 05/08/2011 Ot 553.3 05/12/2011 786.05 SHORTNESS OF BREATH 05/12/2011 786.50 CHEST PAIN 05/12/2011 REYNALDO VIEIRA APRN T 786.05 SHORTNESS OF BREATH 05/12/2011 REYNALDO VIEIRA APRN 786.50 CHEST PAIN 05/12/2011 786.05 SHORTNESS OF BREATH 05/12/2011 786.50 CHEST PAIN 05/12/2011 ARGUETA DO KIKA K 786.05 SHORTNESS OF BREATH 05/12/2011 ARGUETA DO KIKA K 786.50 CHEST PAIN 05/12/2011 786.05 SHORTNESS OF BREATH 05/12/2011 786.50 CHEST PAIN 05/12/2011 [facility], ARASH R 786.05 SHORTNESS OF BREATH 05/12/2011 [...] Breath 05/12/2011 786.50 CHEST PAIN 05/12/2011 [employer] 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, REYNALDO T 786.05 Shortness Of Breath 05/12/2011 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, REYNALDO T 786.50 CHEST PAIN 05/12/2011 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, REYNALDO T 786.05 Shortness Of Breath 05/12/2011 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, REYNALDO T 786.50 CHEST PAIN 05/12/2011 DARIEL [...] MARLENE CABRERA APRN 786.50 CHEST PAIN 05/12/2011 [facility], ARASH R 786.05 Shortness Of Breath 05/12/2011 [facility], ARASH R 786.50 CHEST PAIN 05/12/2011 BRODY ARAYA MD 786.05 Shortness Of Breath 05/12/2011 BRODY ARAYA MD 786.50 CHEST PAIN 05/12/2011 DARIEL LASSITER REYNALDO T 786.05 Shortness Of Breath 05/12/2011 DARIEL LASSITER REYNALDO T 786.50 CHEST PAIN 05/12/2011 [facility], ARASH R 786.05 Shortness Of Breath 05/12/2011 [facility], ARASH R 786.50 CHEST PAIN 05/12/2011 REYNALDO VIEIRA APRN T 786.05 Shortness Of Breath 05/12/2011 REYNALDO VIEIRA APRN T 786.50 CHEST PAIN 05/12/2011 ARGUETA DO, KIKA K 786.05 Shortness Of Breath 05/12/2011 ARGUETA DO, KIKA K 786.50 CHEST PAIN 05/12/2011 [facility], ARASH R 786.05 Shortness Of Breath 05/12/2011 [facility] R 786.50 CHEST PAIN 05/12/2011 MARLENE CABRERA APRN D 786.05 Shortness Of Breath 05/12/2011 MARLENE CABRERA APRN D 786.50 CHEST PAIN 05/12/2011 [facility] R 786.05 Shortness Of Breath 05/12/2011 [facility] R 786.50 CHEST PAIN 05/12/2011 SANDI [...] TORRE K 786.50 CHEST PAIN 05/12/2011 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, ITZ J 786.05 Shortness Of Breath 05/12/2011 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, ITZ J 786.50 CHEST PAIN 05/12/2011 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, ITZ J 786.05 Shortness Of Breath 05/12/2011 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, ITZ J 786.50 CHEST PAIN 05/12/2011 SANDI LYNNN, ITZ J 786.05 Shortness Of Breath 05/12/2011 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, ITZ J 786.50 CHEST PAIN 05/12/2011 WERHILARIO DO, MASSIEL F 786.05 SHORTNESS OF BREATH 05/12/2011 MARTY DO, MASSIEL F 786.50 CHEST PAIN 05/12/2011 [facility] 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, ITZ J 786.05 Shortness Of Breath 05/12/2011 [...] 477.9 RHINITIS 06/24/2011 477.9 RHINITIS 06/24/2011 [facility] 477.9 RHINITIS 06/24/2011 477.9 RHINITIS 06/24/2011 [facility] [...] 06/24/2011 MARLENE CABRERA APRN 477.9 Rhinitis 06/24/2011 [facility], ARASH R 477.9 Rhinitis 06/24/2011 BRODY ARAYA MD 477.9 Rhinitis 06/24/2011 REYNALDO VIEIRA APRN 477.9 Rhinitis 06/24/2011 [facility], ARASH Saucedo 477.9 Rhinitis 06/24/2011 REYNALOD VIEIRA APRN 477.9 Rhinitis 06/24/2011 KIKA ARGUETA DO 477.9 Rhinitis 06/24/2011 [facility], ARASH R 477.9 Rhinitis 06/24/2011 MARLENE CABRERA APRN 477.9 Rhinitis 06/24/2011 [facility], ARASH R 477.9 Rhinitis 06/24/2011 ITZ [...] APNEA 07/14/2011 780.57 SLEEP APNEA 07/14/2011 [facility] 780.57 SLEEP APNEA 07/14/2011 780.57 SLEEP APNEA 07/14/2011 [facility] 780.57 SLEEP APNEA 07/14/2011 MARLENE CABRERA APRN [...] MARLENE CABRERA APRN 780.57 SLEEP APNEA 07/14/2011 [facility], ARASH R 780.57 SLEEP APNEA 07/14/2011 BRODY ARAYA MD 780.57 SLEEP APNEA 07/14/2011 REYNALDO VIEIRA APRN 780.57 SLEEP APNEA 07/14/2011 [facility], ARASH R 780.57 SLEEP APNEA 07/14/2011 REYNALDO VIEIRA APRN 780.57 SLEEP APNEA 07/14/2011 KIKA ARGUETA DO 780.57 SLEEP APNEA 07/14/2011 [facility], ARASH R 780.57 SLEEP APNEA 07/14/2011 MARLENE CABRERA APRN 780.57 SLEEP APNEA 07/14/2011 [facility], [facility]ASH R 780.57 SLEEP APNEA 07/14/2011 ITZ JUNIOR APRN 780.57 SLEEP APNEA 07/14/2011 ITZ JUNIOR APRN 780.57 SLEEP APNEA 07/14/2011 BRODY ARYAA MD 780.57 SLEEP APNEA 07/14/2011 BRODY ARAYA [...] SLEEP APNEA 07/29/2011 Ot 327.23 08/06/2011 V72.31 Manager [employer] Operations Exam, Routine 08/06/2011 REYNALDO VIEIRA APRN V72.31 Manager [employer] Operations Exam, Routine 08/06/2011 V72.31 Manager Flight Operations Exam, Routine 08/06/2011 KIKA ARGUETA DO V72.31 Manager Flight Operations Exam, Routine 08/06/2011 V72.31 Manager Flight Operations Exam, Routine 08/06/2011 [facility], ARASH R V72.31 Manager Flight Operations Exam, Routine 08/06/2011 V72.31 Manager Flight Operations Exam, Routine 08/06/2011 [facility]ASH R V72.31 Manager Flight Operations Exam, Routine 08/06/2011 MARLENE CABRERA APRN V72.31 Manager Flight Operations Exam, Routine 08/06/2011 V72.31 Manager Flight Operations Exam, Routine 08/06/2011 V72.31 Manager Flight Operations Exam, Routine 08/06/2011 V72.31 Manager Flight Operations Exam, Routine 08/06/2011 V72.31 Manager Flight Operations Exam, Routine 08/06/2011 V72.31 Manager Flight Operations Exam, Routine 08/06/2011 V72.31 Manager Flight Operations Exam, Routine 08/06/2011 V72.31 Manager Flight Operations Exam, Routine 08/06/2011 V72.31 Manager Flight Operations Exam, Routine 08/06/2011 V72.31 Manager Flight Operations Exam, Routine 08/06/2011 V72.31 Manager Flight Operations Exam, Routine 08/06/2011 V72.31 Manager Flight Operations Exam, Routine 08/06/2011 V72.31 Manager Flight Operations Exam, Routine 08/06/2011 V72.31 Manager Flight Operations Exam, Routine 08/06/2011 REYNALDO VIEIRA APRN V72.31 Manager Flight Operations Exam, Routine 08/06/2011 REYNALDO VIEIRA APRN V72.31 Manager Flight Operations Exam, Routine 08/06/2011 REYNALDO VIEIRA APRN V72.31 Manager Flight Operations Exam, Routine 08/06/2011 SABIHA MAST MD V72.31 Manager Flight Operations Exam, Routine 08/06/2011 KIKA ARGUETA DO V72.31 Manager Flight Operations Exam, Routine 08/06/2011 MARLENE CABRERA APRN V72.31 Manager Flight Operations Exam, Routine 08/06/2011 MARLENE CABRERA APRN V72.31 Manager Flight Operations Exam, Routine 08/06/2011 [facility] ARASH Saucedo V72.31 Manager Flight Operations Exam, Routine 08/06/2011 BRODY ARAYA MD V72.31 Manager Flight Operations Exam, Routine 08/06/2011 REYNALDO VIEIRA APRN V72.31 Manager Flight Operations Exam, Routine 08/06/2011 [facility] ARASH R V72.31 Manager Flight Operations Exam, Routine 08/06/2011 REYNALDO VIEIRA APRN V72.31 Manager Flight Operations Exam, Routine 08/06/2011 KIKA ARGUETA DO V72.31 Manager Flight Operations Exam, Routine 08/06/2011 [facility], ARASH R V72.31 Manager Flight Operations Exam, Routine 08/06/2011 MARLENE CABRERA APRN V72.31 Manager Flight Operations Exam, Routine 08/06/2011 [facility] ARASH Saucedo V72.31 Manager Flight Operations Exam, Routine 08/06/2011 ITZ JUNIOR APRN V72.31 Manager Flight Operations Exam, Routine 08/06/2011 ITZ JUNIOR APRN V72.31 Manager Flight Operations Exam, Routine 08/06/2011 BRODY ARAYA MD V72.31 Manager Flight Operations Exam, Routine 08/06/2011 BRODY ARAYA MD V72.31 Manager Flight Operations Exam, Routine 08/06/2011 ITZ JUNIOR APRN V72.31 Manager Flight Operations Exam, Routine 08/06/2011 BENJI ACOSTA DDS V72.31 Manager Flight Operations Exam, Routine 08/06/2011 BENJI ACOSTA DDS V72.31 Manager Flight Operations Exam, Routine 08/06/2011 SABIHA MAST MD V72.31 Manager Flight Operations Exam, Routine 08/06/2011 KIKA ARGUETA DO V72.31 Manager Flight Operations Exam, Routine 08/06/2011 ITZ JUNIOR APRN V72.31 Manager Flight Operations Exam, Routine 08/06/2011 ITZ JUNIOR APRN V72.31 Manager Flight Operations Exam, Routine 08/06/2011 ITZ JUNIOR APRN V72.31 Manager Flight Operations Exam, Routine 08/06/2011 MASSIEL FERGUSON DO V72.31 Manager Flight Operations Exam, Routine 08/06/2011 ITZ JUNIOR APRN V72.31 Manager Flight Operations Exam, Routine 08/06/2011 KIKA ARGUETA DO V72.31 Manager Flight Operations Exam, Routine 10/12/2011 Ot 780.39 11/29/2011 Ot [...] LOSS 01/05/2012 E888.9 UNSPECIFIED ACCIDENTAL FALL 01/05/2012 [facility]ASH R 780.39 OTHER CONVULSIONS 01/05/2012 [facility] R 780.93 MEMORY LOSS 01/05/2012 [facility]ASH R E888.9 UNSPECIFIED ACCIDENTAL FALL 01/05/2012 780.39 OTHER CONVULSIONS 01/05/2012 780.93 MEMORY LOSS 01/05/2012 E888.9 UNSPECIFIED ACCIDENTAL FALL 01/05/2012 [facility], ARASH R 780.39 OTHER CONVULSIONS 01/05/2012 [facility] ARASH R 780.93 MEMORY LOSS 01/05/2012 [facility]ASH R E888.9 UNSPECIFIED ACCIDENTAL FALL [...] VIEIRA APRN 780.93 Memory Loss 01/05/2012 REYNALDO VIEIAR APRN E888.9 Unspecified Accidental Fall 01/05/2012 SABIHA [...] CABRERA APRN E888.9 Unspecified Accidental Fall 01/05/2012 [facility] ARASH R 780.39 OTHER CONVULSIONS 01/05/2012 [facility] ARASH R 780.93 Memory Loss 01/05/2012 [facility] R E888.9 Unspecified Accidental Fall 01/05/2012 BRODY ARAYA MD 780.39 OTHER CONVULSIONS 01/05/2012 BRODY ARAYA MD 780.93 Memory Loss 01/05/2012 BRODY ARAYA MD E888.9 Unspecified Accidental Fall 01/05/2012 REYNALDO VIEIRA APRN 780.39 OTHER CONVULSIONS 01/05/2012 REYNALDO VIEIRA APRN 780.93 Memory Loss 01/05/2012 REYNALDO VIEIRA APRN E888.9 Unspecified Accidental Fall 01/05/2012 [facility], ARASH R 780.39 OTHER CONVULSIONS 01/05/2012 [facility] ARASH R 780.93 Memory Loss 01/05/2012 [facility] ARASH R E888.9 Unspecified Accidental Fall 01/05/2012 REYNALDO VIEIRA APRN 780.39 OTHER CONVULSIONS 01/05/2012 REYNALDO VIEIRA APRN 780.93 Memory Loss 01/05/2012 REYNALDO VIEIRA APRN E888.9 Unspecified Accidental Fall 01/05/2012 ARGUETA DO, KIKA K 780.39 OTHER CONVULSIONS 01/05/2012 ARGUETA DO, KIKA K 780.93 Memory Loss 01/05/2012 ARGUETA DO, KIKA K E888.9 Unspecified Accidental Fall 01/05/2012 [facility] ARASH R 780.39 OTHER CONVULSIONS 01/05/2012 [facility] ARASH R 780.93 Memory Loss 01/05/2012 [facility]ASH R E888.9 Unspecified Accidental Fall 01/05/2012 MARLENE CABRERA APRN 780.39 OTHER CONVULSIONS 01/05/2012 MARLENE CABRERA APRN 780.93 Memory Loss 01/05/2012 MARLENE CABRERA APRN E888.9 Unspecified Accidental Fall 01/05/2012 [facility]ASH R 780.39 OTHER CONVULSIONS 01/05/2012 [facility]ASH R 780.93 Memory Loss 01/05/2012 [facility]ASH R E888.9 Unspecified Accidental Fall [...] JUNIOR APRN J 780.39 OTHER CONVULSIONS 01/05/2012 RSOA JUNIOR APRNA J 780.93 Memory Loss 01/05/2012 [...] MODERATE 02/21/2012 300.02 AN GEN ANXIETY 02/21/2012 [facility].32 MO DEPRESSIVE RECURRENT MODERATE 02/21/2012 [facility] 300.02 AN GEN ANXIETY 02/21/2012 296.32 MO DEPRESSIVE RECURRENT MODERATE 02/21/2012 300.02 AN GEN ANXIETY 02/21/2012 [facility] 296.32 MO DEPRESSIVE RECURRENT MODERATE 02/21/2012 [facility] 300.02 AN GEN ANXIETY 02/21/2012 [...] CABRERA APRN 300.02 AN GEN ANXIETY 02/21/2012 [facility], ARASH R 296.32 MO DEPRESSIVE RECURRENT MODERATE 02/21/2012 [facility] ARASH R 300.02 AN GEN ANXIETY 02/21/2012 BRODY ARAYA MD 296.32 MO DEPRESSIVE RECURRENT MODERATE 02/21/2012 BRODY ARAYA MD 300.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 ANXIETY 02/21/2012 REYNALDO VIEIRA APRN T 296.32 MO DEPRESSIVE RECURRENT MODERATE 02/21/2012 REYNALDO VIEIRA APRN 300.02 AN GEN ANXIETY 02/21/2012 [facility] ARASH R 296.32 MO DEPRESSIVE RECURRENT MODERATE 02/21/2012 [facility]ASH R 300.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 ANXIETY 02/21/2012 REYNALDO VIEIRA APRN T 296.32 MO DEPRESSIVE RECURRENT MODERATE 02/21/2012 REYNALDO VEIIRA APRN T 300.02 AN GEN ANXIETY 02/21/2012 ARGUETA DO KIKA K 296.32 MO DEPRESSIVE RECURRENT MODERATE 02/21/2012 ARGUETA DO, KIKA K 300.02 AN GEN ANXIETY 02/21/2012 [facility]ASH R 296.32 MO DEPRESSIVE RECURRENT MODERATE 02/21/2012 [facility]ASH R 300.02 AN GEN ANXIETY 02/21/2012 MARLENE CABRERA APRN 296.32 MO DEPRESSIVE RECURRENT MODERATE 02/21/2012 MARLENE CABRERA APRN 300.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 ANXIETY 02/21/2012 [facility]ASH R 296.32 MO DEPRESSIVE RECURRENT MODERATE 02/21/2012 [facility] R 300.02 AN GEN ANXIETY [...] AN PTSD 04/30/2012 309.81 AN PTSD 04/30/2012 [facility] R 309.81 AN PTSD 04/30/2012 309.81 AN PTSD 04/30/2012 [facility] R 309.81 AN PTSD 04/30/2012 [...] MARLENE CABRERA APRN 309.81 AN PTSD 04/30/2012 [facility] R 309.81 AN PTSD 04/30/2012 MARSHAL SAUCEDO, BRODY Linda 309.81 AN PTSD 04/30/2012 REYNALDO VIEIRA APRN 309.81 AN PTSD 04/30/2012 [facility]ASH R 309.81 AN PTSD 04/30/2012 REYNALDO VIEIRA APRN 309.81 AN PTSD 04/30/2012 KIKA ARGUETA DO 309.81 AN PTSD 04/30/2012 [facility] R 309.81 AN PTSD 04/30/2012 MARLENE CABRERA APRN 309.81 AN PTSD 04/30/2012 [facility] R 309.81 AN PTSD 04/30/2012 ROSA JUNIOR APRNA J 309.81 AN PTSD 04/30/2012 CLAUDE JUNIOR APRNINDA J 309.81 AN PTSD 04/30/2012 BRODY ARAYA MD 309.81 AN PTSD 04/30/2012 BRODY ARAYA MD 309.81 AN PTSD 04/30/2012 SANDI LASSITER ITZ J 309.81 AN PTSD 04/30/2012 [...] NEUROPATHY UNSP 05/21/2012 357.9 NEUROPATHY UNSP 05/21/2012 [facility] R 357.9 NEUROPATHY UNSP 05/21/2012 357.9 NEUROPATHY UNSP 05/21/2012 [facility] Saucedo 357.9 NEUROPATHY UNSP 05/21/2012 [...] MARLENE CABRERA APRN 357.9 NEUROPATHY UNSP 05/21/2012 [facility]ASH R 357.9 NEUROPATHY UNSP 05/21/2012 BRODY ARAYA MD 357.9 NEUROPATHY UNSP 05/21/2012 REYNALDO VIEIRA APRN 357.9 NEUROPATHY UNSP 05/21/2012 [facility] R 357.9 NEUROPATHY UNSP 05/21/2012 REYNALDO VIEIRA APRN 357.9 NEUROPATHY UNSP 05/21/2012 KIKA ARGUETA DO 357.9 NEUROPATHY UNSP 05/21/2012 [facility] R 357.9 NEUROPATHY UNSP 05/21/2012 MARLENE CABRERA APRN 357.9 NEUROPATHY UNSP 05/21/2012 [facility] R 357.9 NEUROPATHY UNSP 05/21/2012 [...] 07/07/2012 V76.47 VAGINAL PAP SMEAR SCREENING 07/07/2012 [facility].71 BREAST PAIN 07/07/2012 [facility] R 611.72 BREAST LUMP OR MASS 07/07/2012 [facility] V73.81 HPV SCREENING 07/07/2012 [facility] R V76.10 BREAST CANCER SCREENING 07/07/2012 [facility] R V76.47 VAGINAL PAP SMEAR SCREENING 07/07/2012 611.71 BREAST PAIN 07/07/2012 611.72 BREAST LUMP OR MASS 07/07/2012 V73.81 HPV SCREENING 07/07/2012 V76.10 BREAST CANCER SCREENING 07/07/2012 V76.47 VAGINAL PAP SMEAR SCREENING 07/07/2012 [facility] 611.71 BRE[facility] PAIN 07/07/2012 [facility] 611.72 BREAST LUMP OR MASS 07/07/2012 [facility] R V73.81 HPV SCREENING 07/07/2012 [facility] R V76.10 BREAST CANCER SCREENING 07/07/2012 [facility] R V76.47 VAGINAL PAP SMEAR SCREENING 07/07/2012 MARLENE CABRERA APRN 611.71 BREAST PAIN 07/07/2012 MARLENE CABREAR APRN 611.72 BREAST LUMP OR MASS 07/07/2012 [...] VIEIRA APRN V73.81 HPV SCREENING 07/07/2012 DARIEL V[employer]INARY 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, REYNALDO T V76.10 BREAST CANCER SCREENING 07/07/2012 [...] APRN V76.47 VAGINAL PAP SMEAR SCREENING 07/07/2012 [facility], ARASH R 611.71 BREAST PAIN 07/07/2012 [facility], ARASH R 611.72 BREAST LUMP OR MASS 07/07/2012 [facility], ARASH R V73.81 HPV SCREENING 07/07/2012 [facility], ARASH R V76.10 BREAST CANCER SCREENING 07/07/2012 [facility], ARASH R V76.47 VAGINAL PAP SMEAR [...] T V76.47 VAGINAL PAP SMEAR SCREENING 07/07/2012 [facility], ARASH R 611.71 BREAST PAIN 07/07/2012 [facility], ARASH R 611.72 BREAST LUMP OR MASS 07/07/2012 [facility], ARASH R V73.81 HPV SCREENING 07/07/2012 [facility], ARASH R V76.10 BREAST CANCER SCREENING 07/07/2012 [facility], ARASH R V76.47 VAGINAL PAP SMEAR [...] K V76.47 VAGINAL PAP SMEAR SCREENING 07/07/2012 [facility], ARASH R 611.71 BREAST PAIN 07/07/2012 [facility], ARASH R 611.72 BREAST LUMP OR MASS 07/07/2012 [facility], ARASH R V73.81 HPV SCREENING 07/07/2012 [facility], ARASH R V76.10 BREAST CANCER SCREENING 07/07/2012 [facility], ARASH R V76.47 VAGINAL PAP SMEAR SCREENING 07/07/2012 MALRENE CABRERA APRN 611.71 BREAST PAIN 07/07/2012 MARLENE CABRERA APRN 611.72 BREAST LUMP OR MASS 07/07/2012 MARLENE CABRERA APRN V73.81 HPV SCREENING 07/07/2012 MARLENE CABRERA APRN V76.10 BREAST CANCER SCREENING 07/07/2012 MARLENE CABRERA APRN V76.47 VAGINAL PAP SMEAR SCREENING 07/07/2012 [facility], ARASH R 611.71 BREAST PAIN 07/07/2012 [facility], ARASH R 611.72 BREAST LUMP OR MASS 07/07/2012 [facility], ARASH R V73.81 HPV SCREENING 07/07/2012 [facility], ARASH R V76.10 BREAST CANCER SCREENING 07/07/2012 [facility], ARASH R V76.47 VAGINAL PAP SMEAR SCREENING 07/07/2012 SANDI 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, ITZ J 611.71 BREAST PAIN 07/07/2012 SANDI V[employer]ARY 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, ITZ J 611.72 BREAST LUMP OR MASS 07/07/2012 SANDI VETERINARY 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, ITZ J V73.81 HPV SCREENING 07/07/2012 SANDI VETERINARY 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, ITZ J V76.10 BREAST CANCER SCREENING 07/07/2012 SANDI VETERINARY 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, ITZ J V76.47 VAGINAL PAP SMEAR SCREENING 07/07/2012 SANDI VETERINARY 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, ITZ J 611.71 BREAST PAIN 07/07/2012 SANDI VETERINARY 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, ITZ J 611.72 BREAST LUMP OR MASS 07/07/2012 SANDI LASSITER, ITZ J V73.81 HPV SCREENING 07/07/2012 SANDI VETERINARY 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, ITZ J V76.10 BREAST CANCER SCREENING 07/07/2012 [...] JUNIOR APRNA J 611.71 BREAST PAIN 07/07/2012 SANDI [employer] 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, ITZ J 611.72 BREAST LUMP OR MASS 07/07/2012 SANDI VETERINARY 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, ITZ J V73.81 HPV SCREENING 07/07/2012 SANDI VETERINARY 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, ITZ J V76.10 BREAST CANCER SCREENING 07/07/2012 SANDI VETERINARY 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, ITZ J V76.47 VAGINAL PAP SMEAR SCREENING 07/07/2012 SANDI VETERINARY 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, ITZ J 611.71 BREAST PAIN 07/07/2012 SANDI VETERINARY 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, ITZ J 611.72 BREAST LUMP OR MASS 07/07/2012 SANDI VETERINARY 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, ITZ J V73.81 HPV SCREENING 07/07/2012 SANDI V[employer]ERINARY 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, ITZ J V76.10 BREAST CANCER SCREENING 07/07/2012 [...] MARLENE CABRERA APRN 787.02 NAUSEA ALONE 09/16/2012 [facility], ARASH R 461.9 SINUSITIS ACUTE 09/16/2012 [facility], ARASH R 784.0 HEADACHE 09/16/2012 [facility], ARASH R 787.02 NAUSEA ALONE 09/16/2012 BRODY ARAYA MD 461.9 SINUSITIS ACUTE 09/16/2012 BRODY ARAYA MD 784.0 HEADACHE 09/16/2012 BRODY ARAYA MD 787.02 NAUSEA ALONE 09/16/2012 REYNALDO VIEIRA APRN 461.9 SINUSITIS ACUTE 09/16/2012 REYNALDO VIEIRA APRN 784.0 HEADACHE 09/16/2012 REYNALDO VIEIRA APRN 787.02 NAUSEA ALONE 09/16/2012 [facility], ARASH R 461.9 SINUSITIS ACUTE 09/16/2012 [facility], ARASH R 784.0 HEADACHE 09/16/2012 [facility], ARASH R 787.02 NAUSEA ALONE 09/16/2012 REYNALDO VIEIRA APRN 461.9 SINUSITIS ACUTE 09/16/2012 REYNALDO VIEIRA APRN 784.0 HEADACHE 09/16/2012 REYNALDO VIEIRA APRN 787.02 NAUSEA ALONE 09/16/2012 ARGUETA DO, KIKA K 461.9 SINUSITIS ACUTE 09/16/2012 ARGUETA DO, KIKA K 784.0 HEADACHE 09/16/2012 ARGUETA DO, KIKA K 787.02 NAUSEA ALONE 09/16/2012 [facility], ARASH R 461.9 SINUSITIS ACUTE 09/16/2012 [facility], ARASH R 784.0 HEADACHE 09/16/2012 [facility], ARASH R 787.02 NAUSEA ALONE 09/16/2012 MARLENE CABRERA APRN 461.9 SINUSITIS ACUTE 09/16/2012 MARLENE CABRERA APRN 784.0 HEADACHE 09/16/2012 MARLENE CABRERA APRN 787.02 NAUSEA ALONE 09/16/2012 [facility], ARASH R 461.9 SINUSITIS ACUTE 09/16/2012 [facility], ARASH R 784.0 HEADACHE 09/16/2012 [facility], ARASH R 787.02 NAUSEA ALONE 09/16/2012 [...] ARAYA MD N 461.9 SINUSITIS ACUTE 09/16/2012 RBODY ARAYA MD N 784.0 HEADACHE 09/16/2012 BRODY ARAYA MD N 787.02 NAUSEA ALONE 09/16/2012 ROSA JUNIOR APRNA Merrick 461.9 SINUSITIS ACUTE 09/16/2012 ROSA JUNIOR APRNA J 784.0 HEADACHE 09/16/2012 ITZ JUNIOR APRN 787.02 NAUSEA ALONE 09/16/2012 BENJI ACOSTA DDS 461.9 SINUSITIS ACUTE 09/16/2012 ACOSTA DDSBENJI 784.0 HEADACHE 09/16/2012 [facility]STA DDS, BENJI 787.02 NAUSEA ALONE 09/16/2012 ACOSTA DDS, BENJI 461.9 SINUSITIS ACUTE 09/16/2012 [facility] DDS, BENJI 784.0 HEADACHE 09/16/2012 ACOSTA DDS, [...] MAIKOL, ITZ J 784.0 HEADACHE 09/16/2012 SANDI VETERINARY 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, ITZ J 787.02 NAUSEA ALONE 09/16/2012 SANDI VETERINARY 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, ITZ J 461.9 SINUSITIS ACUTE 09/16/2012 SANDI VETERINARY 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, ITZ J 784.0 HEADACHE 09/16/2012 SANDI VETERINARY 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, ITZ J 787.02 NAUSEA ALONE 09/16/2012 SANDI VETERINARY 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, ITZ J 461.9 SINUSITIS ACUTE 09/16/2012 SANDI VETERINARY 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, ITZ J 784.0 HEADACHE 09/16/2012 SANDI VETERINARY 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, ITZ J 787.02 NAUSEA ALONE 09/16/2012 SANDI VETERINARY 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, ITZ J 461.9 SINUSITIS ACUTE 09/16/2012 SANDI VETERINARY 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, ITZ J 784.0 HEADACHE 09/16/2012 SANDI VETERINARY 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, ITZ J 787.02 NAUSEA ALONE 09/16/2012 ARGUETA [...] 09/22/2012 MARLENE CABRERA APRN 788.1 DYSURIA 09/22/2012 [facility], ARASH R 788.1 DYSURIA 09/22/2012 BRODY ARAYA MD 788.1 DYSURIA 09/22/2012 REYNALDO VIEIRA APRN 788.1 DYSURIA 09/22/2012 [facility], ARASH R 788.1 DYSURIA 09/22/2012 REYNALDO VIEIRA APRN 788.1 DYSURIA 09/22/2012 ARGUETA KIKA [place] TORRE 788.1 DYSURIA 09/22/2012 [facility], ARASH R 788.1 DYSURIA 09/22/2012 MARLENE CABRERA APRN 788.1 DYSURIA 09/22/2012 [facility], ARASH R 788.1 DYSURIA 09/22/2012 ITZ [...] KIKA K 788.1 DYSURIA 09/22/2012 SANDI LASSITER, IZT J 788.1 DYSURIA 09/22/2012 SANDI LASSITER, ITZ [...] CABRERA APRN 724.5 BACK PAIN, GENERAL 11/15/2012 [facility], ARASH R 724.5 BACK PAIN, GENERAL 11/15/2012 BRODY ARAYA MD 724.5 BACK PAIN, GENERAL 11/15/2012 REYNALDO VIEIRA APRN 724.5 BACK PAIN, GENERAL 11/15/2012 [facility], ARASH R 724.5 BACK PAIN, GENERAL 11/15/2012 REYNALDO VIEIRA APRN 724.5 BACK PAIN, GENERAL 11/15/2012 KIKA ARGUETA DO 724.5 BACK PAIN, GENERAL 11/15/2012 [facility], ARASH R 724.5 BACK PAIN, GENERAL 11/15/2012 MARLENE CABRERA APRN 724.5 BACK PAIN, GENERAL 11/15/2012 [facility], ARASH R 724.5 BACK PAIN, GENERAL [...] SABIHA MAST MD 466.0 ACUTE BRONCHITIS 12/25/2012 KKIA ARGUETA DO 466.0 ACUTE BRONCHITIS 12/25/2012 MARLENE CABRERA APRN 466.0 ACUTE BRONCHITIS 12/25/2012 MARLENE CABRERA APRN 466.0 ACUTE BRONCHITIS 12/25/2012 [facility], ARASH R 466.0 ACUTE BRONCHITIS 12/25/2012 BRODY ARAYA MD 466.0 ACUTE BRONCHITIS 12/25/2012 REYNALDO VIEIRA APRN 466.0 ACUTE BRONCHITIS 12/25/2012 [facility], ARASH R 466.0 ACUTE BRONCHITIS 12/25/2012 REYNALDO VIEIRA APRN 466.0 ACUTE BRONCHITIS 12/25/2012 KIKA ARGUETA DO K 466.0 ACUTE BRONCHITIS 12/25/2012 [facility], ARASH R 466.0 ACUTE BRONCHITIS 12/25/2012 MARLENE CABRERA APRN 466.0 ACUTE BRONCHITIS 12/25/2012 [facility], ARASH R 466.0 ACUTE BRONCHITIS 12/25/2012 [...] MARLENE CABRERA APRN 625.9 PELVIC PAIN 01/03/2013 [facility], ARASH R 625.9 PELVIC PAIN 01/03/2013 [...] APRN 726.71 ACHILLES BURSITIS OR TENDINITIS 02/23/2013 [facility] 726.71 ACHILLES BURSITIS OR TENDINITIS 02/23/2013 BRODY ARAYA MD 726.71 ACHILLES BURSITIS OR TENDINITIS 02/23/2013 REYNALDO VIEIRA APRN 726.71 ACHILLES BURSITIS OR TENDINITIS 02/23/2013 [facility], ARASH R 726.71 ACHILLES BURSITIS OR TENDINITIS 02/23/2013 REYNALDO VIEIRA APRN 726.71 ACHILLES BURSITIS OR TENDINITIS 02/23/2013 KIKA ARGUETA DO 726.71 ACHILLES BURSITIS OR TENDINITIS 02/23/2013 [facility], ARASH R 726.71 ACHILLES BURSITIS OR TENDINITIS 02/23/2013 MARLENE CABRERA APRN 726.71 ACHILLES BURSITIS OR TENDINITIS 02/23/2013 [facility] 726.71 ACHILLES BURSITIS OR TENDINITIS [...] CABRERA APRN V04.81 FL[facility]OT 02/28[facility]2013 [facility] PPV23 (PNEUMOVAX) DX 02/28/2013 [facility] V04.81 FLU SHOT 02/28/2013 BRODY ARAYA MD V03.82 PPV23 (PNEUMOVAX) DX 02/28/2013 BRODY ARAYA MD V04.81 FLU SHOT 02/28/2013 REYNALDO VIEIRA APRN V03.82 PPV23 (PNEUMOVAX) DX 02/28/2013 REYNALDO VIEIRA APRN V04.81 FLU SHOT 02/28/2013 [facility], ARASH R V03.82 PPV23 (PNEUMOVAX) DX 02/28/2013 [facility], ARASH R V04.81 FLU SHOT 02/28/2013 REYNALDO VIEIRA APRN V03.82 PPV23 (PNEUMOVAX) DX 02/28/2013 REYNALDO VIEIRA APRN V04.81 FLU SHOT 02/28/2013 ARGUETA DO, KIKA K V03.82 PPV23 (PNEUMOVAX) DX 02/28/2013 ARGUETA DO, KIKA K V04.81 FLU SHOT 02/28/2013 [facility], ARASH R V03.82 PPV23 (PNEUMOVAX) DX 02/28/2013 [facility], ARASH R V04.81 FLU SHOT 02/28/2013 MARLENE CABRERA APRN V03.82 PPV23 (PNEUMOVAX) DX 02/28/2013 MARLENE CABRERA APRN V04.81 FLU SHOT 02/28/2013 [facility], ARASH R V03.82 PPV23 (PNEUMOVAX) DX 02/28/2013 [facility], ARASH R V04.81 FLU SHOT 02/28/2013 [...] APRN T 599.0 URINARY TRACT INFECTION 03/23/2013 [facility], ARASH R 599.0 URINARY TRACT INFECTION 03/23/2013 REYNALDO VIEIRA APRN T 599.0 URINARY TRACT INFECTION 03/23/2013 ARGUETA DO KIKA K 599.0 URINARY TRACT INFECTION 03/23/2013 [facility], ARASH R 599.0 URINARY TRACT INFECTION 03/23/2013 MARLENE CABRERA APRN 599.0 URINARY TRACT INFECTION 03/23/2013 [facility], ARASH R 599.0 URINARY TRACT INFECTION [...] K 599.0 URINARY TRACT INFECTION 05/19/2013 MARLENE CABRERA APRN 793.80 abnormal mammogram 05/19/2013 MARLENE CABRERA APRN 795.19 OTHER ABNORMAL [place] SMEAR OF VAGINA AND VAGINAL HPV 05/19/2013 [facility], ARASH R 793.80 abnormal mammogram 05/19/2013 [facility], ARASH R 795.19 OTHER ABNORMAL [place] SMEAR OF VAGINA AND VAGINAL HPV 05/19/2013 BRODY ARAYA MD N 793.80 abnormal mammogram 05/19/2013 BRODY ARAYA MD 795.19 OTHER ABNORMAL [place] SMEAR OF VAGINA AND VAGINAL HPV 05/19/2013 REYNALDO VIEIRA APRN T 793.80 abnormal mammogram 05/19/2013 REYNALDO VIEIRA APRN T 795.19 OTHER ABNORMAL [place] SMEAR OF VAGINA AND VAGINAL HPV 05/19/2013 [facility], ARASH R 793.80 abnormal mammogram 05/19/2013 [facility], ARASH R 795.19 OTHER ABNORMAL [place] SMEAR OF VAGINA AND VAGINAL HPV 05/19/2013 REYNALDO VIEIRA APRN T 793.80 abnormal mammogram 05/19/2013 REYNALDO VIEIRA APRN T 795.19 OTHER ABNORMAL [place] SMEAR OF VAGINA AND VAGINAL HPV 05/19/2013 BRO ARGUETA DOA K 793.80 abnormal mammogram 05/19/2013 ARGUETA DOBROA K 795.19 OTHER ABNORMAL [place] SMEAR OF VAGINA AND VAGINAL HPV 05/19/2013 [facility], ARASH R 793.80 abnormal mammogram 05/19/2013 [facility], ARASH R 795.19 OTHER ABNORMAL [place] SMEAR OF VAGINA AND VAGINAL HPV 05/19/2013 MARLENE CABRERA APRN 793.80 abnormal mammogram 05/19/2013 MARLENE CABRERA APRN 795.19 OTHER ABNORMAL [place] SMEAR OF VAGINA AND VAGINAL HPV 05/19/2013 [facility], ARASH R 793.80 abnormal mammogram 05/19/2013 [facility], ARASH R 795.19 OTHER ABNORMAL [place] SMEAR OF VAGINA AND VAGINAL HPV 05/19/2013 ITZ JUNIOR APRN J 793.80 abnormal mammogram 05/19/2013 ITZ JUNIOR APRN J 795.19 OTHER ABNORMAL [place] SMEAR OF VAGINA AND VAGINAL HPV 05/19/2013 TIZ JUNIOR APRN J 793.80 abnormal mammogram 05/19/2013 [...] 782.0 DISTURBANCE OF SKIN SENSATION 07/01/2013 KIKA ARGUTEA DO K 625.8 OTHER SPECIFIED SYMPTOMS ASSOCIATED WITH FEMALE GENITAL ORGANS 07/01/2013 BRO ARGUETA DOA K 626.9 UNSPECIFIED DISORDERS OF MENSTRUATION AND OTHER ABNORMAL BLEEDING FROM FEMALE GENITAL TRACT 07/01/2013 BRO ARGUETA DOA K 782.0 DISTURBANCE OF SKIN SENSATION 07/01/2013 [facility], ARASH R 625.8 OTHER SPECIFIED SYMPTOMS ASSOCIATED WITH FEMALE GENITAL ORGANS 07/01/2013 [facility] 626.9 UNSPECIFIED DISORDERS OF MENSTRUATION AND OTHER ABNORMAL BLEEDING FROM FEMALE GENITAL TRACT 07/01/2013 [facility], ARASH R 782.0 DISTURBANCE OF SKIN SENSATION 07/01/2013 MARLENE CABRERA APRN 625.8 OTHER SPECIFIED SYMPTOMS ASSOCIATED WITH FEMALE GENITAL ORGANS 07/01/2013 MARLENE CABRERA APRN 626.9 UNSPECIFIED DISORDERS OF MENSTRUATION AND OTHER ABNORMAL BLEEDING FROM FEMALE GENITAL TRACT 07/01/2013 MARLENE CABRERA APRN 782.0 DISTURBANCE OF SKIN SENSATION 07/01/2013 [facility], ARASH R 625.8 OTHER SPECIFIED SYMPTOMS ASSOCIATED WITH FEMALE GENITAL ORGANS 07/01/2013 [facility], RAASH R 626.9 UNSPECIFIED DISORDERS OF MENSTRUATION AND OTHER ABNORMAL BLEEDING FROM FEMALE GENITAL TRACT 07/01/2013 [facility], ARASH R 782.0 DISTURBANCE OF SKIN [...] VIEIRA APRN 354.0 CARPAL TUNNEL SYNDROME 07/15/2013 [facility], ARASH R 354.0 CARPAL TUNNEL SYNDROME 07/15/2013 REYNALDO VIEIRA APRN 354.0 CARPAL TUNNEL SYNDROME 07/15/2013 KIKA ARGUETA DO K 354.0 CARPAL TUNNEL SYNDROME 07/15/2013 [facility], ARASH R 354.0 CARPAL TUNNEL SYNDROME 07/15/2013 MARLENE CABRERA APRN 354.0 CARPAL TUNNEL SYNDROME 07/15/2013 [facility], ARASH R 354.0 CARPAL TUNNEL SYNDROME [...] Ot 788.30 UNSPECIFIED URINARY INCONTINENCE 07/21/2013 ROBI MGAAÑA MD Ot 789.02 ABDOMINAL PAIN, LEFT UPPER QUADRANT 07/21/2013 ROBI MAGAÑA MD Ot 791.9 ABN URINE FINDINGS NEC 07/21/2013 ROBI MAGAÑA MD Ot V58.69 OTH MED,LT,CURRENT USE 09/08/2013 KIKA ARGUETA DO 307.81 TENSION HEADACHE 09/08/2013 [facility], ARASH R 307.81 TENSION HEADACHE 09/08/2013 MARLENE CABRERA APRN 307.81 TENSION HEADACHE 09/08/2013 [facility], ARASH R 307.81 TENSION HEADACHE 09/08/2013 [...] JUNIOR APRN 307.81 TENSION HEADACHE 09/08/2013 SANDI 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, ITZ J 307.81 TENSION HEADACHE 09/08/2013 SANDI [employer] 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, ITZ J 307.81 TENSION HEADACHE 09/08/2013 SANDI LASSITER, ITZ J 307.81 TENSION HEADACHE 09/08/2013 KIKA ARGUETA DO 307.81 TENSION HEADACHE 09/25/2013 ZOFIA MORA DO Ot 558.9 NONINF GASTROENTERIT NEC 09/25/2013 ZOFIA MORA DO Ot 787.01 NAUSEA WITH VOMITING 10/25/2013 ZOFIA MORA DO Ot 112.0 THRUSH 10/25/2013 ZOFIA MORA [...] N Ot 272.4 HYPERLIPIDEMIA NEC/NOS 12/18/2013 BRODY ARAYA MD Ot 296.90 UNSPECIFIED EPISODIC MOOD DISORDER [...] KIKA K 577.0 ACUTE PANCREATITIS 12/22/2013 SANDI VETERINARY 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ROSA LindaA J 577.0 ACUTE PANCREATITIS 12/22/2013 SANDI VETERINARY 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, ITZ J 577.0 ACUTE PANCREATITIS 12/22/2013 SANDI VETERINARY 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, ITZ J 577.0 ACUTE PANCREATITIS 12/22/2013 SANDI LASSITER, ITZ J 577.0 ACUTE PANCREATITIS 12/22/2013 ARGUETA DO, KIKA K 577.0 ACUTE PANCREATITIS 01/02/2014 LAURA FINCH APRN Ot 311 DEPRESSIVE DISORDER NEC 01/02/2014 LAURA FINCH APRN Ot 345.90 EPILEPSY UNSPEC W/O MENTION INTRACTABLE 01/02/2014 LAURA FINCH APRN Ot 346.90 MIGRAINE UNSPECIFIED W/O INTRACT MGRN W/ 01/02/2014 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 Ot 493.90 ASTHMA, UNSPECIFIED 01/02/2014 LAURA FINCH [...] HEMOR COMPLIC A PROCEDURE 03/02/2014 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 Ot 311 DEPRESSIVE DISORDER NEC 03/02/2014 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 Ot 599.0 URIN TRACT INFECTION NOS 03/02/2014 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 Ot 729.1 MYALGIA AND MYOSITIS NOS 03/02/2014 [...] QUINONES Ot 787.91 DIARRHEA 05/12/2014 YASSINE KNOX [employer]ENCIL PRINTER Ot 611.72 05/12/2014 ROMMEL MCMILLAN VETERINARY 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 Ot 611.71 05/12/2014 MILADYS SAUCEDO, MARISA A [...] Ot 785.0 TACHYCARDIA NOS 06/23/2014 YASSINE KNOX [facility] Ot 611.72 06/23/2014 ROMMEL MCMILLAN VETERINARY 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 Ot 611.71 06/23/2014 MILADYS SAUCEDO, MARISA A [...] MARISA A Ot 592.0 07/01/2014 YASSINE KNOX STENCIL PRINTER Ot 611.72 07/01/2014 ROMMEL MCMILLAN APRN Ot 611.71 07/01/2014 MILADYS SAUCEDO, MARISA A Ot 592.0 07/01/2014 MILADYS SAUCEDO, MARISA A Ot 789.00 07/01/2014 MILADYS SAUCEDO, MARISA A Ot 592.9 07/01/2014 MILADYS SAUCEDO, MARISA A Ot 592.0 07/01/2014 MILADYS SAUCEDO, MARISA A Ot V72.84 07/01/2014 MARSHAL SAUCEDO, BRODY Linda Ot 577.0 07/01/2014 [place] Ot 782.2 07/01/2014 [place] Ot V72.84 07/01/2014 MILADYS SAUCEDO, MARISA A Ot 592.0 07/01/2014 MILADYS SAUCEDO, MARISA A Ot V72.84 07/01/2014 MILADYS SAUCEDO, MARISA A Ot 592.0 07/01/2014 REYNALDO LONDONO DO Ot 788.1 DYSURIA 07/01/2014 REYNALDO LONDONO DO Ot 789.09 ABDOMINAL PAIN, OTHER SPECIFIED SITE 07/03/2014 YASSINE KNOX STENC[employer] PRINTER Ot 611.72 07/03/2014 ROMMEL MCMILLAN APRN Ot 611.71 07/03/2014 MILADYS SAUCEDO, MARISA A Ot 592.0 07/03/2014 MILADYS SAUCEDO, MARISA A Ot 789.00 07/03/2014 MLIADYS SAUCEDO, MARISA A Ot 592.9 07/03/2014 MILADYS SAUCEDO, MARISA A Ot 592.0 07/03/2014 MILADYS SAUCEDO, MARISA A Ot V72.84 07/03/2014 MARSHAL SAUCEDO, BRODY Linda Ot 577.0 07/03/2014 [place] Ot 782.2 07/03/2014 [...] OTH MED,LT, CURRENT USE 09/03/2014 YASSINE KNOX STENCIL PRINTER Ot 611.72 09/03/2014 ROMMEL MCMILLAN VETERINARY 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 Ot 611.71 09/03/2014 MILADYS SAUCEDO, MARISA Gant Ot 592.0 09/03/2014 MILADYS SAUCEDO, MARISA Gant Ot 789.00 09/03/2014 MILADYS SAUCEDO, MARISA A Ot 592.9 09/03/2014 MILADYS SAUCEDO, MARISA A Ot 592.0 09/03/2014 MILADYS SAUCEDO, MARISA A Ot V72.84 09/03/2014 MARSHAL SAUCEDO, BRODY Linda Ot 577.0 09/03/2014 [place] Ot 782.2 09/03/2014 [place] Ot V72.84 09/03/2014 MILADYS SAUCEDO, MARISA Gant Ot 592.0 09/03/2014 MILADYS SAUCEDO, MARISA A Ot V72.84 09/03/2014 MILADYS SAUCEDO, MARISA A Ot 592.0 09/03/2014 Ot 595.9 09/03/2014 Ot V72.84 09/03/2014 LAURA FINCH APRN Ot 518.0 PULMONARY COLLAPSE 09/03/2014 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 Ot 786.05 SHORTNESS OF BREATH 09/03/2014 LAURA FINCH APRN Ot 786.52 PAINFUL RESPIRATION 09/12/2014 KIKA ARGUETA DO V81.1 HYPERTENSION SCREENING 09/15/2014 ADOLFO SAUCEDO, ANGEL Saba Ot 493.90 ASTHMA, UNSPECIFIED 09/15/2014 ADOLFO SAUCEDO, ANGEL Saba Ot 599.0 URIN TRACT INFECTION NOS 09/15/2014 ADOLFO SAUCEDO, ANGEL Saba Ot 786.52 PAINFUL RESPIRATION 09/15/2014 ADOLFO ASUCEDO, ANGEL Saba Ot V58.69 OT MED,LT,CURRENT USE [...] V72.84 09/20/2014 Ot V74.8 10/13/2014 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 Ot 592.0 CALCULUS OF KIDNEY 10/13/2014 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 Ot 599.0 URIN TRACT INFECTION NOS 10/13/2014 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 Ot 724.1 PAIN IN THORACIC SPINE 10/26/2014 [...] 592.1 CALCULUS OF URETER 11/27/2014 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 Ot 789.00 ABDOMINAL PAIN, UNSPECIFIED SITE 12/27/2014 [...] SABIHA Glaser Ot 722.51 04/09/2015 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 Ot G89.29 OTHER CHRONIC PAIN 04/09/2015 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 Ot K76.0 FATTY (CHANGE OF) LIVER, NOT ELSEWHERE C 04/09/2015 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 Ot M54.12 RADICULOPATHY, CERVICAL REGION 04/09/2015 YASSINE KNOX STENCIL PRINTER Ot 611.72 04/09/2015 ROMMEL MCMILLAN APRN Ot [...] M54.9 05/01/2015 Ot M79.89 08/03/2015 YASSINE KNOX STENCIL PRINTER Ot 611.72 08/03/2015 ROMMEL MCMILLAN VETERINARY 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 Ot 611.71 08/03/2015 MILADYS SAUCEDO, MARISA A [...] MYALGIA AND MYOSITIS NOS 10/13/2015 YASSINE KNOX STENCIL PRINTER Ot 611.72 LUMP OR MASS IN BREAST [...] INFECTION, SITE NOT SPECIF 10/22/2015 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 Ot G89.29 OTHER CHRONIC PAIN 10/22/2015 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 Ot K42.9 UMBILICAL HERNIA WITHOUT OBSTRUCTION OR 10/22/2015 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 Ot M54.5 LOW BACK PAIN 10/22/2015 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 Ot N20.0 CALCULUS OF KIDNEY 10/24/2015 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 Ot G89.29 OTHER CHRONIC PAIN 10/24/2015 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 Ot K42.9 UMBILICAL HERNIA WITHOUT OBSTRUCTION OR 10/24/2015 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 Ot M54.5 LOW BACK PAIN 10/24/2015 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 Ot N20.0 CALCULUS OF KIDNEY 10/24/2015 YASSINE KNOX STENCIL PRINTER Ot 611.72 LUMP OR MASS IN BREAST 10/24/2015 ROMMEL MCMILLAN VETERINARY 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 Ot 611.71 MASTODYNIA 10/24/2015 MARISA HOOK MD [...] WITH CALCULUS OF URET 12/07/2015 YASSINE KNOX STENCIL PRINTER Ot 611.72 LUMP OR MASS IN BREAST [...] Ot 782.2 LOCAL SUPRFICIAL SWELLNG 12/07/2015 NETTIE HAHN DO Ot V72.84 EXAM PRE-OPERATIVE NOS 12/07/2015 MARISA HOOK MD Ot 592.0 CALCULUS OF KIDNEY 12/07/2015 MARISA HOOK MD Ot V72.84 EXAM PRE-OPERATIVE NOS 12/07/2015 MARISA HOOK MD Ot 592.0 CALCULUS OF KIDNEY 12/07/2015 Ot 595.9 CYSTITIS NOS 12/07/2015 Ot V72.84 EXAM PRE- OPERATIVE NOS 12/07/2015 MARISA HOOK MD Ot 592.0 CALCULUS OF KIDNEY 12/07/2015 MILADYS SAUCEDO, MARISA aGnt Ot 592.0 CALCULUS OF KIDNEY 12/07/2015 MILADYS [...] MYALGIA AND MYOSITIS NOS 02/01/2016 YASSINE KNOX STENCIL PRINTER Ot 611.72 LUMP OR MASS IN BREAST [...] 02/01/2016 BENJI LOMBARDO MD Ot Z79.899 OTHER OBSTETRICAL ANESTHESIOLOGIST (CURRENT) DRUG THERAPY 02/14/2016 BENJI LOMBARDO MD Ot 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, T 02/14/2016 BENJI LOMBARDO MD Ot Z79.899 OTHER OBSTETRICAL ANESTHESIOLOGIST (CURRENT) DRUG THERAPY 02/15/2016 BENJI LOMBARDO MD Ot 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, T 02/15/2016 BENJI LOMBARDO MD Ot Z79.899 OTHER OBSTETRICAL ANESTHESIOLOGIST (CURRENT) DRUG THERAPY 03/03/2016 YASSINE KNOX STENCIL PRINTER Ot 611.72 LUMP OR MASS IN BREAST 03/03/2016 ROMMEL MCMILLAN VETERINARY 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 Ot 611.71 MASTODYNIA 03/03/2016 MARISA HOOK MD [...] 03/03/2016 BENJI LOMBARDO MD Ot Z79.899 OTHER SKILLED NURSING (CURRENT) DRUG THERAPY 03/11/2016 BENJI LOMBARDO MD Ot 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, T 03/11/2016 BENJI LOMBARDO MD Ot Z79.899 OTHER OBSTETRICAL ANESTHESIOLOGIST (CURRENT) DRUG THERAPY 03/24/2016 ZABRINA WOLF MD Ot G40.909 EPILEPSY, UNSP, NOT INTRACTABLE, WITHOUT 03/24/2016 ZABRINA WOLF MD Ot I10 ESSENTIAL (PRIMARY) HYPERTENSION 03/24/2016 ZABRINA WOLF MD Ot Z79.899 OTHER OBSTETRICAL ANESTHESIOLOGIST (CURRENT) DRUG THERAPY 03/26/2016 ZABRINA WOLF MD Ot G40.909 EPILEPSY, UNSP, NOT INTRACTABLE, WITHOUT 03/26/2016 ZABRINA WOLF MD Ot I10 ESSENTIAL (PRIMARY) HYPERTENSION 03/26/2016 ZABRINA WOLF MD Ot Z79.899 OTHER SKILLED NURSING (CURRENT) DRUG THERAPY 03/27/2016 BENJI LOMBARDO MD Ot 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, T 03/27/2016 BENJI LOMBARDO MD Ot Z79.899 OTHER OBSTETRICAL ANESTHESIOLOGIST (CURRENT) DRUG THERAPY 04/16/2016 SABIHA MAST MD [...] DYSURIA 06/07/2016 MAYRA QUINONES Ot Z79.899 OTHER SKILLED NURSING (CURRENT) DRUG THERAPY 06/09/2016 MAYRA QUINONES Ot I10 ESSENTIAL (PRIMARY) HYPERTENSION 06/09/2016 MAYRA QUINONES Ot N20.0 CALCULUS OF KIDNEY 06/09/2016 MAYRA QUINONES Ot R30.0 DYSURIA 06/09/2016 MAYRA QUINONES Ot Z79.899 OTHER SKILLED NURSING (CURRENT) DRUG THERAPY 06/10/2016 MARISA HOOK MD [...] N30.10 INTERSTITIAL CYSTITIS (CHRONIC) WITHOUT 06/12/2016 MARISA OHOK MD, Ot N35.9 URETHRAL STRICTURE, UNSPECIFIED 06/12/2016 MARISA HOOK MD, Ot Z11.2 ENCOUNTER FOR SCREENING FOR OTHER BACTER 06/13/2016 MAYRA QUINONES Ot I10 ESSENTIAL (PRIMARY) HYPERTENSION 06/13/2016 MAYRA QUINONES Ot N20.0 CALCULUS OF KIDNEY 06/13/2016 MAYRA QUINONES Ot R30.0 DYSURIA 06/13/2016 MAYRA QUINONES Ot Z79.899 OTHER OBSTETRICAL ANESTHESIOLOGIST (CURRENT) DRUG THERAPY 06/17/2016 MARISA HOOK MD [...] MYALGIA AND MYOSITIS NOS 02/23/2017 YASSINE KNOX STENCIL PRINTER Ot 611.72 LUMP OR MASS IN BREAST 02/23/2017 ROMMEL MCMILLAN VETERINARY 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 Ot 611.71 MASTODYNIA 02/23/2017 MARISA HOOK MD [...] Ot V45.89 POSTSURGICAL STATES NEC 02/23/2017 SABIHA MAST MD Ot 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 02/23/2017 [...] PERSONAL HISTORY OF URINARY CALCULI 02/25/2017 ANGEL MATA MD, Ot Z90.49 ACQUIRED ABSENCE OF OTHER SPECIFIED PART 02/25/2017 ANGEL MATA MD Ot Z90.710 ACQUIRED ABSENCE OF BOTH CERVIX AND UTER 02/25/2017 ANGEL MATA MD Ot Z98.51 TUBAL LIGATION STATUS 03/30/2017 YASSINE KNOX [employer]ENCIL PRINTER Ot 611.72 LUMP OR MASS IN BREAST 03/30/2017 ROMMEL MCMILLAN VETERINARY 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 Ot 611.71 MASTODYNIA 03/30/2017 MARISA HOOK MD [...] Anshu CASE Ot R00.2 PALPITATIONS 06/11/2017 CONI SAUCEDO, Anshu CASE Ot R06.02 [...] NETTIE D Ot R19.7 DIARRHEA, UNSPECIFIED 10/22/2017 HAHN DO, NETTIE D Ot Z01.818 ENCOUNTER FOR OTHER PREPROCEDURAL EXAMIN 10/27/2017 HAHN DO, NETTIE D Ot R19.7 DIARRHEA, UNSPECIFIED 10/27/2017 HAHN DO, NETTIE D Ot Z01.818 ENCOUNTER FOR OTHER PREPROCEDURAL EXAMIN 10/27/2017 YASSINE KNOX J [facility] Ot 611.72 LUMP OR MASS IN BREAST 10/27/2017 ROMMEL MCMILLAN VETERINARY 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 Ot 611.71 MASTODYNIA 10/27/2017 MARISA HOOK MD [...] HYPERTENSION 10/27/2017 CONI SAUCEDO, Anshu CASE Ot R06.02 SHORTNESS OF BREATH 10/27/2017 CONI SAUCEDO, Anshu CASE Ot E78.5 HYPERLIPIDEMIA, UNSPECIFIED 10/27/2017 COIN SAUCEDO, Anshu CASE Ot I10 ESSENTIAL (PRIMARY) [...] 10/27/2017 NETTIE HAHN DO Ot Z79.899 OTHER SKILLED NURSING (CURRENT) DRUG THERAPY 10/27/2017 NETTIE HAHN DO [...] 10/29/2017 NETTIE HAHN DO Ot Z79.899 OTHER SKILLED NURSING (CURRENT) DRUG THERAPY 10/29/2017 NETTIE HAHN DO [...] BOTH CERVIX AND UTER 12/25/2017 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 Ot Z90.89 ACQUIRED ABSENCE OF OTHER ORGANS [...] R10.30 LOWER ABDOMINAL PAIN, UNSPECIFIED 12/28/2017 ANGEL MATA MD Ot Z82.49 FAMILY HX [...] MALIG NEOPLASM OF FE 12/28/2017 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 Ot Z87.19 PERSONAL HISTORY OF OTHER DISEASES OF TH 12/28/2017 LAURA FINCH APRN Ot Z88.1 ALLERGY STATUS TO OTHER ANTIBIOTIC AGENT 12/28/2017 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 Ot Z88.2 ALLERGY STATUS TO SULFONAMIDES STATUS 12/28/2017 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 Ot Z88.4 ALLERGY STATUS TO ANESTHETIC AGENT STATU 12/28/2017 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 Ot Z88.5 ALLERGY STATUS TO NARCOTIC AGENT STATUS 12/28/2017 LAURA FINCH APRN Ot Z88.6 ALLERGY STATUS TO ANALGESIC AGENT STATUS 12/28/2017 LAURA FINCH APRN Ot Z88.8 ALLERGY STATUS TO OTH DRUG/MEDS/BIOL SUB 12/28/2017 LAURA FINCH APRN Ot Z90.710 ACQUIRED ABSENCE OF BOTH CERVIX AND UTER 12/28/2017 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 Ot Z90.89 ACQUIRED ABSENCE OF OTHER ORGANS [...] OBSTRUCT 05/01/2009 59.5 RETROPUBIC URETH SUSPENS 07/18/2009 52870 ROUTINE VENIPUNCTURE 03/31/2012 58531 A1C (IN-HOUSE) 03/31/2012 85900 CBC 03/31/2012 02524 LIPID PANEL 03/31/2012 33066 CMP 03/31/2012 7870211 GFR CALC (RESULT ONLY) 03/31/2012 91610 TSH 03/31/2012 82945 MICRO ALBUMIN-IN HOUSE 04/01/2012 73244 PSYCH IND W/MED CK 20 04/13/2012 71026 EEG 04/13/2012 Neurology Mino Garcia 04/13/2012 19576 PSYCH DIAG INTER EXAM 04/15/2012 53922 INDIV PSYTX 45/50 MIN 04/27/2012 77219 PSYCH PHARM MGMT 05/01/2012 21880 PSYCH PHARM MGMT 05/05/2012 13358 INDIV PSYTX 20/30 MIN 05/21/2012 63356 PSYTX PT&/FAMILY 60 MINUTES 07/07/2012 65735 MAMMOGRAM DX, YOLI 07/08/2012 58867 PAP SMEAR 07/08/2012 Q0091 PAP SMEAR OBTAIN SMEAR 07/08/2012 74226 PSYTX PT&/FAMILY 45 MINUTES 07/21/2012 11352 PSYCH IND W/MED CK 20 08/06/2012 09794 PSYTX PT&/FAMILY 30 MINUTES 08/06/2012 09848 UA LONG DIP 09/22/2012 90175 PSYTX PT&/FAMILY 45 MINUTES 09/28/2012 64484 PSYTX PT&/FAMILY 45 MINUTES 10/28/2012 55926 PSYCH DIAGNOSTIC EVALUATION 11/15/2012 15520 PSYTX PT&/FAMILY 45 MINUTES 11/23/2012 80945 ROUTINE VENIPUNCTURE 02/28/2013 69567 TSH 02/28/2013 61646 A1C (IN-HOUSE) 02/28/2013 78807 CBC 02/28/2013 45959 LIPID PANEL 02/28/2013 32366 CMP 02/28/2013 4466304 GFR CALC (RESULT ONLY) 02/28/2013 81834 UA W/ CULTURE IF INDICATED 04/07/2013 58254 URINE DRUG SCREEN (IN-HOUSE ) 04/07/2013 85729 TRIGGER POINT INJ/1-2 MUS 04/08/2013 48246 URINE OXYCODONE GC/MS 04/08/2013 86202 URINE TCA CON'F 04/08/2013 48824 URINE DRUG SCREEN (IN-HOUSE ) 05/16/2013 34576 MAMMOGRAM DX, YOLI 05/17/2013 Q0091 PAP SMEAR OBTAIN SMEAR 05/17/2013 00999 PAP SMEAR 05/26/2013 44667 PSYTX PT&/FAMILY 30 MINUTES 06/16/2013 25454 US PELVIC COMPL (REFLEX CPT - 13278) 07/01/2013 16985 CMP 07/15/2013 98674 LIPID PANEL 07/15/2013 30867 TSH 07/15/2013 35166 CBC 07/15/2013 85667 CRP HS (CARDIO) 07/15/2013 27374 PSYTX PT&/FAMILY 45 MINUTES 07/20/2013 2000F BLOOD PRESSURE CHECK 09/08/2013 61639 PSYTX PT&/FAMILY 45 MINUTES 09/20/2013 56196 PSYTX PT&/FAMILY 45 MINUTES 11/09/[address] ABDOMEN W/ AND W/O CONTRAST 12/22/2013 76543 LIPASE 12/22/2013 05921 CBC 12/22/2013 0778830 GFR CALC (RESULT ONLY) 12/22/2013 11331 CMP 12/22/2013 28042 A1C (IN-HOUSE) 03/07/2014 41444 URINE DRUG SCREEN (IN-HOUSE ) 03/14/2014 08846 UA LONG DIP 04/07/2014 Results Test Result [...] resistant Staphylococcus aureus (MRSA) screening culture NEG [facility] Comp. Metabolic Panel (14) - 08/13/16 13:57 [...] Status Pt. Type Provider Facility Loc./Unit Complaint [id number] 09/12/2014 11:37:00 09/12/2014 23:59:59 CLS Outpatient KIKA ARGUETA DO [id number] 07/20/2014 10:41:00 07/20/2014 23:59:59 CLS Outpatient ITZ JUNIOR APRN [id number] 04/18/2014 11:17:00 04/18/2014 23:59:59 CLS Outpatient ITZ JUNIOR APRN [id number] 04/18/2014 11:17:00 04/18/2014 23:59:59 CLS Outpatient ITZ JUNIOR APRN [id number] 03/24/2014 08:33:00 03/24/2014 23:59:59 CLS Outpatient KIKA ARGUETA DO [id number] 03/14/2014 10:56:00 03/14/2014 23:59:59 CLS Outpatient ITZ JUNIOR APRN [id number] 03/09/2014 10:02:00 03/09/2014 23:59:59 CLS Outpatient KARLA CARDOZOBENJI [id number] 03/07/2014 09:38:00 03/07/2014 23:59:59 CLS Outpatient SABIHA MAST MD [id number] 02/27/2014 16:24:00 02/27/2014 23:59:59 CLS Outpatient KARLA CARDOZOBENJI [id number] 02/07/2014 11:43:00 02/07/2014 23:59:59 CLS Outpatient ITZ JUNIOR APRN [id number] 01/04/2014 13:20:00 01/04/2014 23:59:59 CLS Outpatient BRODY ARAYA MD [id number] 12/22/2013 11:08:00 12/22/2013 23:59:59 CLS Outpatient BRODY ARAYA MD [id number] 12/08/2013 11:17:00 12/08/2013 23:59:59 CLS Outpatient ITZ JUINOR APRN [id number] 12/08/2013 11:17:00 12/08/2013 23:59:59 CLS Outpatient ITZ JUNIOR APRN [id number] 11/09/2013 13:20:00 11/09/2013 23:59:59 CLS Outpatient ARASH ROTHMAN [id number] 09/20/2013 12:11:00 09/20/2013 23:59:59 [id number] 09/20/2013 12:11:00 09/20/2013 23:59:59 CLS Outpatient MARLENE CABRERA APRN [id number] 09/08/2013 12:22:00 09/08/2013 23:59:59 CLS Outpatient KIKA ARGUETA DO [id number] 07/19/2013 08:49:00 07/19/2013 23:59:59 CLS Outpatient ARASH ROTHMAN [id number] 07/15/2013 14:34:00 07/15/2013 23:59:59 CLS Outpatient REYNALDO VIEIRA APRN [id number] 07/15/2013 14:34:00 07/15/2013 23:59:59 CLS Outpatient REYNALDO VIEIRA APRN [id number] 07/01/2013 10:33:00 07/01/2013 23:59:59 CLS Outpatient BRODY ARAYA MD [id number] 06/15/2013 13:32:00 06/15/2013 23:59:59 CLS Outpatient RAFAEL ROTHMANHOMAR Saucedo [id number] 05/16/2013 09:46:00 05/16/2013 23:59:59 CLS Outpatient MARLENE CABRERA APRN [id number] 04/08/2013 13:42:00 04/08/2013 23:59:59 CLS Outpatient KIKA ARGUETA DO [id number] 04/07/2013 00:00:00 04/07/2013 23:59:59 CLS Outpatient MARLENE CABRERA APRN [id number] 03/23/2013 12:41:00 03/23/2013 23:59:59 CLS Outpatient SABIHA MAST MD [id number] 02/28/2013 10:32:00 02/28/2013 23:59:59 CLS Outpatient REYNALDO VIEIRA APRN [id number] 02/28/2013 10:32:00 02/28/2013 23:59:59 CLS Outpatient REYNALDO VIEIRA APRN [id number] 02/23/2013 12:03:00 02/23/2013 23:59:59 CLS Outpatient REYNALDO VIEIRA APRN [id number] 08/06/2012 13:58:00 08/06/2012 23:59:59 CLS Outpatient RAFAEL ROTHMANHOMAR Saucedo [id number] 08/06/2012 12:23:00 08/06/2012 23:59:59 CLS Outpatient [id number] 08/06/2012 12:23:00 08/06/2012 23:59:59 CLS Outpatient MARLENE CABRERA APRN [id number] 07/21/2012 13:57:00 07/21/2012 23:59:59 CLS Outpatient DILSHAD FLOREZ, ARASH Saucedo [id number] 07/07/2012 12:53:00 07/07/2012 23:59:59 CLS Outpatient KIKA ARGUETA DO [id number] 06/24/2012 17:13:00 06/24/2012 23:59:59 CLS Outpatient [id number] 06/24/2012 17:13:00 06/24/2012 23:59:59 CLS Outpatient [id number] 05/21/2012 11:23:00 05/21/2012 23:59:59 CLS Outpatient REYNALDO VIEIRA APRN [id number] 04/30/2012 13:18:00 04/30/2012 23:59:59 CLS Outpatient [id number] 03/31/2012 10:14:00 03/31/2012 23:59:59 CLS Outpatient MASSIEL FERGUSON DO [id number] 01/03/2013 14:23:00 Document Registration [id number] 12/28/2012 11:34:00 Document Registration [id number] 12/25/2012 12:36:00 Document Registration [id number] 11/19/2012 12:56:00 Document Registration [id number] 11/15/2012 15:50:00 Document Registration [id number] 11/12/2012 10:49:00 Document Registration [id number] 11/05/2012 10:54:00 Document Registration [id number] 10/28/2012 12:49:00 Document Registration [id number] 09/28/2012 15:46:00 Document Registration [id number] 09/22/2012 17:00:00 Document Registration [id number] 09/16/2012 14:58:00 Document Registration [id number] 09/16/2012 14:58:00 Document Registration [id number] 09/16/2012 10:42:00 Document Registration [id number] 03/25/2017 11:09:00 Document Registration [id number] 10/06/2017 09:40:00 10/06/2017 23:59:59 CLS Outpatient SABIHA MAST MD [facility] [id number] 10/06/2017 09:40:00 Document Registration [id number] 05/01/2017 13:30:00 Document Registration [id number] 03/24/2017 14:20:00 Document Registration [id number] 04/21/2016 05:05:00 Document Registration [id number] 02/19/2015 09:08:50 ACT Document Registration [id number] 05/29/2016 05:05:00 Document Registration [id number] 12/29/2017 16:45:00 12/29/2017 20:00:00 DIS Emergency ZOFIA MORA DO [facility] ER VOMITING;BP ISSUES [id number] 12/29/2017 05:57:00 12/29/2017 11:30:00 DIS Outpatient MARISA HOOK MD [facility] SDC BILATERAL RENAL STONES [id number] 12/28/2017 05:33:00 12/28/2017 10:35:00 DIS Outpatient MARISA HOOK MD [facility] PREOP BILAT RENAL STONE [id number] 12/25/2017 08:51:00 12/25/2017 23:59:59 CLS Outpatient MARISA HOOK MD [facility] RAD RT RENAL STONE [id number] 12/25/2017 19:24:00 12/25/2017 21:34:00 DIS Emergency LAURA FINCH APRN [facility] ER KIDNEY STONE [id number] 12/22/2017 17:40:00 12/22/2017 21:32:00 DIS Outpatient ANGEL MATA MD [facility] ER LOWER BACK PAIN;ABD PAIN [id number] 10/27/2017 09:22:00 10/27/2017 12:37:00 DIS Outpatient NETTIE HAHN DO [facility] ENDO DIARRHEA [id number] 10/21/2017 12:15:00 10/21/2017 13:12:00 DIS Outpatient NETTIE HAHN DO [facility] PREOP COLONOSCOPY [id number] 05/01/2017 10:55:00 05/01/2017 23:59:59 CLS Outpatient Anshu NEWBERRY MD [facility] LAB I73.9 E78.5 I10 R00.2 R06.02 [id number] 04/09/2017 08:02:00 04/09/2017 23:59:59 CLS Outpatient Anshu NEWBERRY MD [facility] CARD R06.02 SOB,I10 HYPERTENSION [id number] 04/06/2017 10:00:00 04/06/2017 23:59:59 CLS Outpatient Anshu NEWBERRY MD [facility] CARD E78.5 HYPERLIPIDEMIA, R00.2 PLAPITATIONS, [id number] 02/23/2017 12:59:00 02/23/2017 15:27:00 DIS Emergency ANGEL MATA MD [facility] ER RT LEG PAIN [id number] 07/14/2016 12:57:00 08/06/2016 15:46:00 DIS Outpatient ARMINDA FLEMING [facility] REHAB THORACIC HNP; DDD; SPONDYLOSIS [id number] 06/11/2016 05:57:00 06/11/2016 09:50:00 DIS Outpatient MARISA HOOK MD [facility] SDC CPP [id number] 06/10/2016 09:26:00 06/10/2016 11:57:00 DIS Outpatient MARISA HOOK MD [facility] PREOP CPP [id number] 06/07/2016 12:01:00 06/07/2016 14:25:00 DIS Emergency MAYRA QUINONES [facility] ER UTI/BLADDER PAIN [id number] 04/14/2016 13:38:00 04/14/2016 23:59:59 CLS Outpatient SABIHA MAST MD [facility] RAD ABNORMAL MAMMO [id number] 03/24/2016 08:44:00 03/24/2016 11:12:00 DIS Emergency ZABRINA WOLF MD [facility] ER SEIZURE [id number] 03/03/2016 12:27:00 03/03/2016 13:18:00 DIS Outpatient BENJI LOMBARDO MD [facility] CARD DISC DISORDER [id number] 02/15/2016 12:40:00 02/15/2016 14:43:00 DIS Outpatient BENJI LOMBARDO MD [facility] CARD DISC DISORDER RADICULOPATHY THORACIC [id number] 02/01/2016 10:48:00 02/01/2016 12:16:00 DIS Outpatient BENJI LOMBARDO MD [facility] CARD DISC DISORDER/C RADICUOPATHY [id number] 01/03/2016 11:36:00 01/03/2016 13:11:00 DIS Emergency ROBI MAGAÑA MD [facility] ER BACK PAIN [id number] 12/06/2015 21:19:00 12/07/2015 00:52:00 DIS Emergency CONCHITA WOLF MDOTHY D [facility] ER POSS KIDNEY STONE [id number] 10/22/2015 13:06:00 10/22/2015 15:15:00 DIS Emergency LUARA FINCH APRN [facility] ER LOW BP, BACK PAIN, VAGINAL DISCOMFORT [id number] 10/13/2015 15:18:00 10/13/2015 19:56:00 DIS Emergency ROME SAUCEDO, MAGGIE Curry [facility] ER BACK PAIN, BLOOD IN URINE , SLUGGISH [id number] 09/12/2015 17:41:00 09/12/2015 20:21:00 DIS Emergency ZOFIA MORA DO [facility] ER BACK PAIN,NAUSEA [id number] 08/03/2015 12:57:00 08/03/2015 23:59:59 CLS Outpatient SABIHA MAST MD [facility] RAD SCREENING [id number] 04/09/2015 15:30:00 04/09/2015 18:45:00 DIS Emergency LAURA FINCH APRN [facility] ER BACK PAIN, NECK PAIN, R ARM PAIN [id number] 02/19/2015 09:08:00 02/19/2015 23:59:59 CLS Outpatient SABIHA MAST MD [facility] RAD THORACIC DISC HERNIATION [id number] 02/09/2015 08:30:00 02/09/2015 10:27:00 DIS Emergency ZOFIA MORA DO [facility] ER BACK PAIN [id number] 11/30/2014 13:37:00 11/30/2014 23:59:59 CLS Outpatient MARISA HOOK MD [facility] RAD STONES [id number] 11/27/2014 16:43:00 11/27/2014 19:29:00 DIS Emergency LAURA FINCH APRN [facility] ER ABD PAIN,NAUSEA,VOMITING [id number] 11/07/2014 05:57:00 11/07/2014 09:40:00 DIS Outpatient MARISA HOOK MD [facility] SDC LEFT RENAL STONE [id number] 11/03/2014 15:38:00 11/03/2014 23:59:59 CLS Outpatient MILADYS SAUCEDO, MARISA Gant [facility] PREOP LEFT RENAL STONE [id number] 10/30/2014 13:05:00 10/30/2014 23:59:59 CLS Outpatient MARISA HOOK MD [facility] RAD STONES [id number] 10/26/2014 16:56:00 10/26/2014 21:22:00 DIS Emergency MAYRA QUINONES [facility] ER DISCOLORED BOWEL [id number] 10/13/2014 17:28:00 10/13/2014 20:27:00 DIS Emergency 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 [facility] ER BACK PAIN [id number] 09/15/2014 17:23:00 09/15/2014 19:28:00 DIS Emergency ANGEL MATA MD [facility] ER L SIDE PAIN [id number] 09/03/2014 12:35:00 09/03/2014 14:32:00 DIS Emergency LAURA FINCH APRN [facility] ER SOA [id number] 07/01/2014 02:39:00 07/01/2014 05:28:00 DIS Emergency REYNALDO LONDONO DO [facility] ER BACK STOMACH PAIN [id number] 06/20/2014 16:01:00 06/20/2014 20:05:00 DIS Emergency MAYRA QUINONES [facility] ER HEART RACE;NAUSEA; HEADACHE [id number] 05/10/2014 16:40:00 05/10/2014 20:21:00 DIS Emergency MAYRA QUINONES [facility] ER FALL [id number] 04/11/2014 07:19:00 04/11/2014 11:25:00 DIS Emergency ZABRINA WOLF MD [facility] ER SEIZURE [id number] 04/05/2014 11:34:00 04/05/2014 13:50:00 DIS Emergency ZABRINA WOLF MD [facility] ER MULTIPLE COMPLAINTS [id number] 03/24/2014 08:55:00 03/24/2014 11:40:00 DIS Emergency ROBI MAGAÑA MD [facility] ER SEIZURE [id number] 03/02/2014 10:14:00 03/02/2014 12:26:00 DIS Emergency LAURA FINCH APRN [facility] ER ABDOMINAL PAIN/NAUSEA [id number] 02/28/2014 14:26:00 02/28/2014 23:59:59 CLS Outpatient MARISA HOOK MD [facility] RAD STONES [id number] 02/18/2014 16:13:00 02/18/2014 18:26:00 DIS Emergency ZOFIA MORA DO [facility] ER POST SURGERY BLEEDING [id number] 02/15/2014 06:52:00 02/15/2014 12:20:00 DIS Outpatient MARISA HOOK MD [facility] RIGHT STONE [id number] 02/14/2014 07:35:00 02/14/2014 23:59:59 CLS Outpatient MARISA HOOK MD [facility] PREOP RIGHT STONE [id number] 01/31/2014 18:09:00 02/03/2014 13:40:00 DIS Inpatient SABIHA MAST MD [facility] 4TH ACUTE RENAL FAILURE; HYPOTENSION [id number] 01/21/2014 17:37:00 01/21/2014 18:00:00 DIS Emergency MAYRA QUINONES [facility] ER POST SURGERY RASH [id number] 01/12/2014 06:04:00 01/12/2014 10:50:00 DIS Outpatient NETTIE HAHN DO [facility] SDC MASS BACK [id number] 01/10/2014 05:58:00 01/10/2014 09:48:00 DIS Outpatient MARISA HOOK MD [facility] BILATERAL RENAL STONES [id number] 01/06/2014 08:11:00 01/06/2014 23:59:59 CLS Outpatient NETTIE HAHN DO [facility] PREOP MASS BACK [id number] 01/04/2014 09:45:00 01/04/2014 23:59:59 CLS Outpatient MARISA HOOK MD [facility] PREOP BILATERAL RENAL STONES [id number] 01/02/2014 14:09:00 01/02/2014 16:43:00 DIS Emergency 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 [facility] ER RIGHT FLANK PAIN [id number] 12/23/2013 09:30:00 12/23/2013 23:59:59 CLS Outpatient BRODY ARAYA MD [facility] RAD PANCREATITIS,PAIN [id number] 12/20/2013 12:06:00 12/20/2013 23:59:59 CLS Outpatient MARISA HOOK MD [facility] RAD STONE [id number] 12/15/2013 14:39:00 12/18/2013 10:38:00 DIS Inpatient BRODY ARAYA MD [facility] 4TH ACUTE PANCREATITIS BILATERAL NEPHROLITHIASIS [id number] 12/14/2013 12:05:00 12/14/2013 14:58:00 DIS Emergency MORGAN DOZOFIA K [facility] ER RIGHT FLANK PAIN/BLOOD IN URINE [id number] 10/25/2013 16:23:00 10/25/2013 17:26:00 DIS Emergency MORGAN DOZOFIA K [facility] ER SEIZURE [id number] 09/25/2013 01:21:00 09/25/2013 04:03:00 DIS Emergency MORGAN DOZOFIA [facility] ER N/V/D [id number] 07/21/2013 09:02:00 07/21/2013 14:31:00 DIS Emergency ROBI MAGAÑA MD [facility] ER LOWER ABD PAIN [id number] 07/11/2013 09:15:00 07/11/2013 23:59:59 CLS Outpatient MARISA HOOK MD [facility] RAD STONES, ABD PAIN [id number] 06/08/2013 12:35:00 06/08/2013 23:59:59 CLS Outpatient ROMMEL MCMILLAN 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 [facility] RAD BREAST PAIN [id number] 01/04/2013 13:00:00 01/04/2013 23:59:59 CLS Outpatient MORIAH JACOBS [employer]ENC[employer]INTER [facility] QUICK [id number] 01/04/2013 13:06:00 01/04/2013 16:41:00 DIS Emergency MAYRA QUINONES [facility] ER POSS KIDNEY STONE [id number] 10/07/2012 14:05:00 10/07/2012 23:59:59 CLS Outpatient YASSINE KNOX [employer] [facility] RAD LEFT BREAST MASS, PAIN [id number] 01/13/2018 10:00:00 PEN Preadjohn HOOK MD, MARISA Gant [facility] SDC LEFT STONE [id number] 08/30/2015 07:45:00 Document Registration [id number] 03/19/2015 13:32:00 Document Registration [id number] 08/08/2014 06:22:00 Document Registration [id number] 08/03/2014 06:33:00 Document Registration [id number] 06/30/2014 12:06:00 Document Registration [id number] 06/30/2014 12:06:00 Document Registration [id number] 06/30/2014 12:06:00 Document Registration [id number] 06/30/2014 12:06:00 Document Registration [id number] 06/30/2014 12:06:00 Document Registration [id number] 06/30/2014 12:06:00 Document Registration [id number] 06/30/2014 12:06:00 Document Registration [id number] 06/30/2014 12:06:00 Document Registration [id number] 06/30/2014 12:06:00 Document Registration [id number] 06/30/2014 12:06:00 Document Registration [id number] 06/30/2014 12:06:00 Document Registration [id number] 06/30/2014 12:06:00 Document Registration [id number] 06/30/2014 12:06:00 Document Registration [id number] 05/12/2014 11:04:00 Document Registration [id number] 05/12/2014 11:04:00 Document Registration [id number] 03/09/2012 12:38:00 Document Registration [id number] 03/08/2012 08:23:00 Document Registration [id number] 02/16/2012 09:54:00 Document Registration [id number] 02/09/2012 06:13:00 Document Registration [id number] 02/04/2012 09:15:00 Document Registration [id number] 01/08/2012 13:13:00 Document Registration [id number] 01/03/2012 12:42:00 Document Registration [id number] 01/02/2012 14:02:00 Document Registration [id number] 12/18/2011 16:38:00 Document Registration [id number] 11/29/2011 10:12:00 Document Registration [id number] 11/11/2011 11:28:00 Document Registration [id number] 10/14/2011 17:21:00 Document Registration [id number] 10/12/2011 16:45:00 Document Registration [id number] 08/18/2011 09:12:00 Document Registration [id number] 08/04/2011 18:48:00 Document Registration [id number] 07/28/2011 21:05:00 Document Registration [id number] 07/17/2011 09:36:00 Document Registration [id number] 07/10/2011 15:40:00 Document Registration [id number] 07/09/2011 20:50:00 Document Registration [id number] 06/13/2011 08:19:00 Document Registration [id number] 06/08/2011 19:45:00 Document Registration [id number] 06/06/2011 05:38:00 Document Registration [id number] 06/03/2011 13:07:00 Document Registration [id number] 05/30/2011 10:31:00 Document Registration [id number] 05/12/2011 14:45:00 Document Registration [id number] 05/08/2011 05:32:00 Document Registration [id number] 05/04/2011 13:21:00 Document Registration [id number] 12/27/2010 22:38:00 Document Registration [id number] 12/13/2010 12:21:00 Document Registration [id number] 11/21/2010 22:19:00 Document Registration [id number] 10/26/2010 14:28:00 Document Registration [id number] 10/11/2010 08:23:00 Document Registration [id number] 10/07/2010 11:15:00 Document Registration [id number] 10/05/2010 07:19:00 Document Registration [id number] 10/01/2010 21:19:00 Document Registration [id number] 09/09/2010 22:34:00 Document Registration [id number] 09/05/2010 11:30:00 Document Registration [id number] 09/03/2010 14:01:00 Document Registration [id number] 09/02/2010 15:19:00 Document Registration [id number] 08/26/2010 08:59:00 Document Registration [id number] 08/21/2010 10:13:00 Document Registration [id number] 08/20/2010 15:09:00 Document Registration [id number] 08/18/2010 15:05:00 Document Registration [id number] 08/05/2010 12:01:00 Document Registration [id number] 07/31/2010 14:13:00 Document Registration [id number] 07/30/2010 05:42:00 Document Registration [id number] 07/25/2010 10:15:00 Document Registration [id number] 07/11/2010 11:22:00 Document Registration [id number] 05/14/2010 13:45:00 Document Registration [id number] 04/30/2010 12:53:00 Document Registration [id number] 04/29/2010 12:26:00 Document Registration [id number] 09/12/2009 12:06:00 Document Registration [id number] 08/08/2009 12:06:00 Document Registration [id number] 06/26/2009 13:22:00 Document Registration [id number] 06/13/2009 11:36:00 Document Registration [id number] 06/08/2009 10:26:00 Document Registration [id number] 05/28/2009 15:11:00 Document Registration [id number] 05/22/2009 11:14:00 Document Registration [id number] 05/18/2009 12:08:00 Document Registration [id number] 04/29/2009 19:12:00 Document Registration [id number] 03/30/2009 09:39:00 Document Registration [id number] 2009 12:05:00 Document Registration [id number] 03/19/2009 15:24:00 Document Registration [id number] 09/15/2006 11:53:00 Document Registration [id number] 01/12/2006 12:03:00 Document Registration [id number] 12/24/2005 10:30:00 Document Registration [id number] 12/18/2005 15:24:00 Document Registration [id number] 08/14/2016 10:09:00 Document Registration
[2018-01-15 10:10] VITALS: BP 152/89
[2018-01-15] MEDS ORDERED: ENOXAPARIN 40 MG/0.4 ML (LOVENOX) SYR SC SCH (12:00)
[2018-01-15 12:41] VITALS: BP 146/82
--- NOTE | 2018-01-15 14:08 | Discharge Summary ---
Diagnosis/Chief Complaint Date of Admission Jan 13, 2018 at 23:35 Date of Discharge 01/15/2018 Admission Diagnosis Admission Diagnosis (1) Intractable nausea and vomiting (2) Chronic back pain (3) Mood disorder (4) Hypertension (5) Nephrolithiasis (6) DVT prophylaxis Discharge Diagnosis (1) Intractable nausea and vomiting Status: Acute Assessment & Plan: Unclear etiology, possible reaction to something given in procedure yesterday. Supportive care with promethazine, metaclopramide and diphenhydramine given associated rash. Lipase normal on admission, no evidence of infection on initial labs/UA. 01/15 -etiology remains unclear, but this morning patient is tolerating a regular diet without any further N/V and requests discharge -requests rx for phentergan, she is out of her previous rx and would like medications sent to [facility] (2) Chronic back pain Status: Chronic Assessment & Plan: Resume home hydrocodone (3) Mood disorder Status: Chronic Assessment & Plan: Resume home meds except holding quetiapine due to interaction with metaclopramide 01/15 - okay to resume home meds on discharge; pt has not required medication since before breakfast and is tolerating her diet without difficulty (4) Hypertension Status: Chronic Assessment & Plan: Resume home amlodipine and metoprolol. May need increased doses as BP has been markedly elevated with her vomiting. Qualifiers: Qualified Codes: I10 - Essential (primary) hypertension (5) Nephrolithiasis Status: Chronic Assessment & Plan: s/p left ureteral stone treatment, with left renal stone treatment pending. Dr. Howell consulted, appreciate recommendations. 01/15 - pt seen by Dr. Howell yesterday, pt cleared for discharge with previously scheduled follow up in his office Chief Complaint/HPI Chief Complaint/HPI 47 yo female presented to ER after having intractable nausea and vomiting after kidney stone procedure yesterday. She states she had chills and rash on her face and chest as well that developed when she started vomiting. She still feels very poorly this morning. She notes this occurred last time she had a stone procedure as well and lasted about 3 days, she is concerned she has a reaction to something in the anesthesia. She denies fever. She has pain in her ribs and chest when she heaves/vomits, but otherwise doesn't have pain. Currently has a headache. Denies constipation or diarrhea. She does feel her urine looks strange, almost milky this morning. Discharge Summary-OBS Procedures None. Consultations Discharge Physical Examination Allergies: Coded Allergies: Sulfa (Sulfonamide Antibiotics) (Unverified Allergy, Unknown, 12/28/17) famotidine (Unverified Allergy, Unknown, dry heaves, 01/13/18) hydrocodone (Verified Allergy, Unknown, itching. Pt has received hydromorphone w/o issue, 12/29/17) NOTE: Patient has taken Percocet and Lortab as home meds as recent as 12/25/17 ketorolac (Unverified Allergy, Unknown, 01/13/18) ketorolac tromethamine (Verified Allergy, Unknown, 12/28/17) levofloxacin (Unverified Allergy, Unknown, 12/28/17) GIVES HER THRUSH nitrofurantoin (Unverified Allergy, Unknown, 12/28/17) ondansetron (Verified Allergy, Unknown, 12/28/17) tramadol (Unverified Allergy, Unknown, 12/28/17) Uncoded Allergies: SULFA (Allergy, Unknown, 01/13/18) Vitals & I&Os Intake and Output 01/15/18 00:00 Intake Total 1700 ml Output Total 3000 ml Balance -1300 ml Vital Sign - Last 12Hours Date Time Temp Pulse Resp B/P (MAP) Pulse Ox O2 Delivery O2 Flow Rate FiO2 01/15/18 13:00 81 01/15/18 12:41 98.0 20 146/82 (103) 96 Room Air General Appearance: Alert, Oriented X3, Cooperative, No Acute Distress HEENT: Atraumatic, EOMI, Mucous Memb Moist/[place] Respiratory: Clear to Auscultation, Normal Air Movement Cardiovascular: Regular Rate, Normal S1, Normal S2 Abdominal: Normal Bowel Sounds, Soft, No Tenderness Extremities: No Clubbing, Normal Pulses Skin: No Rashes, No Significant Lesion Neuro: Normal Speech, Normal Tone, Sensation Intact, Cranial Nerves 3-12 NL Psych/Mental Status: Mental Status NL, Mood NL Hospital Course see final discharge diagnosis list Labs Laboratory Tests 01/15/18 05:25: White Blood Count 6.9, Red Blood Count 4.10L, Hemoglobin 11.7, Hematocrit 35, Mean Corpuscular Volume 85, Mean Corpuscular Hemoglobin 29, Mean Corpuscular Hemoglobin Concent 33, Red Cell Distribution Width 13.5, Platelet Count 172, Mean Platelet Volume 11.6H, Sodium Level 142, Potassium Level 3.5L, Chloride Level 114H, Carbon Dioxide Level 18L, Anion Gap 10, Blood Urea Nitrogen 10, Creatinine 0.91, Estimat Glomerular Filtration Rate > 60, BUN/Creatinine Ratio 11, Glucose Level 93, Calcium Level 8.3L Radiology Reviewed Signed Date of Exam: 01/13/18 ABDOMEN/KUB 1VIEW INDICATION: Status post lithotripsy. TIME OF EXAM: 11:53 a.m. Correlation is made with prior radiograph from earlier the same day. Surgical clips in the left pelvis and right upper quadrant are noted. Dominant calculus overlying lower pole left kidney is again seen. There appears to be some slight fragmentation status post lithotripsy. Tiny calcific density overlies lower pole right kidney. No calculi along the course of the ureters are seen. IMPRESSION: Questionable mild fragmentation of the left lower pole calculus, status post lithotripsy. Discharge Condition at discharge stable at discharge Instructions to patient/family Please see electronic discharge instructions given to patient. Discharge Medications Reviewed and agree with Discharge Medication list on patient's Discharge Instruction sheet Clinical Quality Measures DVT/VTE Risk/Contraindication: Risk Factor Score Per Nursin RFS Level Per Nursing on Admit: 3=High Copy Copies To 1: SABIHA MAST MD, MARGARET E DO Jan 15, 2018 14:08
[2018-01-15] MEDS ORDERED: PROM25SU44 RC (14:16)
[2018-01-15] MEDS ORDERED: PROC-1 PO (14:16)
--- NOTE | 2018-01-15 14:22 | Discharge Instructions ---
Discharge [facility] Discharge Medications New, Converted or Re-Newed RX: Transmitted to Pharmacy New Medications: Prochlorperazine Maleate (Compazine) 10 Mg Tablet 10 MG PO Q8H PRN for NAUSEA/VOMITING-2ND LINE for 7 Days, #20 TAB 0 Refills Promethazine HCl (Promethazine Suppository) 25 Mg Supp.rect 25 MG RC Q6H PRN for NAUSEA/VOMITING-1ST LINE for 7 Days, #28 SUPP.RECT 0 Refills Continued Medications: Alprazolam (Alprazolam) 1 Mg Tablet 2 MG PO HS, TAB TAKES 2 (1MG) TABLETS Amlodipine Besylate (Amlodipine Besylate) 2.5 Mg Tablet 2.5 MG PO DAILY, TAB Atorvastatin Calcium (Atorvastatin Calcium) 10 Mg Tablet 10 MG PO HS, TAB Gabapentin (Gabapentin) 800 Mg Tablet 1600 MG PO BID, TAB TAKES 2 (800MG) TABLETS Hydrocodone/Acetaminophen (Hydrocodone-Acetamin 5-325 mg) 1 Each Tablet 1-2 TAB PO Q4H PRN for PAIN-MODERATE, TAB Metoprolol Tartrate (Metoprolol Tartrate) 50 Mg Tablet 50 MG PO HS, TAB Quetiapine Fumarate (Quetiapine Fumarate) 300 Mg Tablet 300 MG PO HS, TAB Trazodone HCl (Trazodone HCl) 300 Mg Tablet 300 MG PO HS, TAB Patient Instructions Patient Instructions -medications as directed -follow up with PCP in 1 week -keep follow up with Dr. Howell as previously instructed Goal/Follow Up Appt: -Dr. Howell as previously directed -clinic follow up in 1 week Return to The Hospital For: chest pain or pressure, shortness of breath, nausea or vomiting that lasts more than 24 hours and prevents you from keeping down clear liquids or medications, fever >101 that lasts more than 24-48 hours, pain uncontrolled by prescribed medication, if directed by production broaching machine operator provider, or any other emergent complaints or concerns Activity & Diet Discharge Diet: Eat Small Frequent Meals Activity as Tolerated: Yes Copy Copies To 1: [facility]GIN JARRELL DO Jan 15, 2018 14:22
== END 2018-01-15 15:50 | disposition home or self-care (01) ==
LOC: EDUNIT# 21:38 → ER 21:39 → UNDOADMOB 22:55 → 4TH 22:55
PROVIDERS: ADMIT Family Medicine; ATTEND Family Medicine
DX: R11.2 Nausea with vomiting, unspecified (principal); M54.9 Dorsalgia, unspecified; F39 Unspecified mood [affective] disorder; I10 Essential (primary) hypertension; N20.0 Calculus of kidney; Z98.890 Other specified postprocedural states
CPT/HCPCS: 36415; 80048; 80053; 81000; 82150; 83690; 85007; 85025; 85027; 94664; 94760; G0378

== ENCOUNTER → 2018-02-04 | Outpatient (CLI) | payer MEDICARE ==
[~2018-02-04] MED LIST changes: -AMLO2.5T PO; +AMLO2.5T3 PO; +ATOR10TA66 PO; +HYDR-3812 PO; -OXYC-197 PO; +OXYC1TAB87 PO; +PROC-1 PO; +PROM25SU44 RC
[2018-02-04 08:32] LABS: CHOLESTEROL 283 MG/DL (< 200); HDL CHOLESTEROL 41 MG/DL (40-60); TRIGLYCERIDES 590 MG/DL (<150)
== END ==
LOC: LAB 07:58
PROVIDERS: ATTEND Internal Medicine Interventional Cardiology
DX: E78.5 Hyperlipidemia, unspecified (principal)
CPT/HCPCS: 36415; 80061

== ENCOUNTER 2019-07-15 06:11 | Emergency (ER) | payer MEDICARE ==
[~2019-07-15] VITALS: Ht 154.9 cm; Wt 71.6 kg
[~2019-07-15 06:11] MED LIST changes: -AMLO2.5T3 PO; +AMLO2.5T4 PO; +GABA800T10 PO; +GBPN600T PO; +OMEP-280 PO; -OMEP20CA12 PO; +QUET200T29 PO; -QUET200T57 PO; -TAMS0.4C98 PO; +TRM50T PO
[2019-07-15] MEDS ORDERED: ASPIRIN 81 MG CHEW (CHILDREN'S ASA) PO ONE (06:45)
[2019-07-15] MEDS ORDERED: NITROGLYCERIN 0.4 MG SL TABS BTL 25'S SL PRN (06:45)
[2019-07-15 06:52] VITALS: BP 152/108
[2019-07-15 06:52] LABS: BASOPHILS % (AUTO) 0 % (0-10); EOSINOPHILS # (AUTO) 0.1 10^3/uL (0.0-0.3); EOSINOPHILS % (AUTO) 2 % (0-10); HEMATOCRIT 42 % (35-52); HEMOGLOBIN 14.2 G/DL (11.5-16.0); LYMPHOCYTES % (AUTO) 43 % (12-44); MEAN CORPUSCULAR HEMOGLOBIN 28 PG (25-34); MEAN CORPUSCULAR HGB CONC 34 G/DL (32-36); MEAN CORPUSCULAR VOLUME 84 FL (80-99); MEAN PLATELET VOLUME 10.6 FL (7.4-10.4); MONOCYTES # (AUTO) 0.6 X 10^3 (0.0-1.0); MONOCYTES % (AUTO) 9 % (0-12); NEUTROPHILS # (AUTO) 3.3 X 10^3 (1.8-7.8); NEUTROPHILS % (AUTO) 46 % (42-75); PLATELET COUNT 212 10^3/uL (130-400); RED CELL DISTRIBUTION WIDTH 12.9 % (10.0-14.5); WHITE BLOOD COUNT 7.1 10^3/uL (4.3-11.0)
--- NOTE | 2019-07-15 07:00 | NUR ---
REPORT FROM MARTHA
[2019-07-15 07:16] LABS: PROTHROMBIN TIME PATIENT 13.2 SEC (12.2-14.7)
--- NOTE | 2019-07-15 07:17 | ED Chest Pain ---
General Chief Complaint: Chest Pain Stated Complaint: BACK & LEG PAIN Nursing Triage Note: pain and pain in her c/o upper back pain and pain in her legs. states this started 3 to 4 months ago Nursing Sepsis Screen: No Definite Risk Source: patient, old records Exam Limitations: no limitations History of Present Illness Date Seen by Provider: Jul 15, 2019 Time Seen by Provider: 06:23 Initial Comments This 49-year-old woman presents to the emergency room with primary complaint of pain between the shoulder blades in her upper back. This pain has been present for 3-4 months and worsening. She now states her pain is a 10 on the pain scale. She also reports uncontrolled restless legs despite taking multiple medications that should help with this. She did not complain of chest pain until specifically asked during the course of her history and physical. She now reports an episode of chest pain in the left upper chest associated with tingling in her arm that started about 03:00 and then dissipated. Patient seems rather anxious. She has significant hypertension on initial assessment. Her primary care provider is Dr. Mast and her surgeon is Dr. Sparrow. Review of chart notes a negative stress test in 2017. She seems rather anxious. Allergies and Home Medications Allergies Coded Allergies: Sulfa (Sulfonamide Antibiotics) (Unverified Allergy, Unknown, 12/28/17) famotidine (Unverified Allergy, Unknown, dry heaves, 01/13/18) hydrocodone (Verified Allergy, Unknown, itching. Pt has received hydromorphone w/o issue, 12/29/17) NOTE: Patient has taken Percocet and Lortab as home meds as recent as 12/25/17 ketorolac (Unverified Allergy, Unknown, 01/13/18) ketorolac tromethamine (Verified Allergy, Unknown, 12/28/17) levofloxacin (Unverified Allergy, Unknown, 12/28/17) GIVES HER THRUSH nitrofurantoin (Unverified Allergy, Unknown, 12/28/17) ondansetron (Verified Allergy, Unknown, 12/28/17) tramadol (Unverified Allergy, Unknown, 12/28/17) codeine (Unverified Adverse Reaction, Unknown, 01/26/18) Uncoded Allergies: SULFA (Allergy, Unknown, 01/13/18) Home Medications Alprazolam 1 Mg Tablet, 2 MG PO HS, (Reported) TAKES 2 (1MG) TABLETS Amlodipine Besylate 2.5 Mg Tablet, 2.5 MG PO DAILY, (Reported) Atorvastatin Calcium 10 Mg Tablet, 10 MG PO HS, (Reported) Cephalexin 500 Mg Capsule, 500 MG PO BID Prescribed by: TARSHA PAIGE on 01/26/18 1251 Cyclobenzaprine HCl 10 Mg Tablet, 10 MG PO Q8H PRN for SPASMS Prescribed by: ANGEL DOBSON on 07/15/19 1024 Gabapentin 800 Mg Tablet, 1,600 MG PO BID, (Reported) TAKES 2 (800MG) TABLETS Hydrocodone/Acetaminophen 1 Each Tablet, 1-2 TAB PO Q4H PRN for PAIN-MODERATE, (Reported) Metoprolol Tartrate 50 Mg Tablet, 50 MG PO HS, (Reported) Quetiapine Fumarate 300 Mg Tablet, 300 MG PO HS, (Reported) Ropinirole HCl 0.25 Mg Tab, 0.25 MG PO HS Prescribed by: ANGEL DOBSON on 07/15/19 1024 Trazodone HCl 300 Mg Tablet, 300 MG PO HS, (Reported) Patient Home Medication List Home Medication List Reviewed: Yes Review of Systems Review of Systems Constitutional: no symptoms reported EENTM: No Symptoms Reported Respiratory: No Symptoms Reported Cardiovascular: See HPI Gastrointestinal: Diarrhea Genitourinary: No Symptoms Reported Musculoskeletal: see HPI Skin: no symptoms reported Psychiatric/Neurological: Anxiety Endocrine: No Symptoms Reported Hematologic/Lymphatic: No Symptoms Reported Past Nqxbzzz-Vnhjcr-Buyirk Hx Past Med/Social Hx: Reviewed Nursing Past Med/Soc Hx Patient Social History Alcohol Use: Denies Use Recreational Drug Use: No (UNKNOWN) Smoking Status: Never a Smoker 2nd Hand Smoke Exposure: No Recent Foreign Travel: No Contact w/Someone Who Travel: No Recent Infectious Disease Expo: No Recent Hopitalizations: No Physical Abuse: No Sexual Abuse: No Mistreated: No Fear: No Immunizations Up To Date Tetanus Booster (TDap): Unknown PED Vaccines UTD: No Date of Pneumonia Vaccine: Mar 01, 2013 Date of Influenza Vaccine: Mar 16, 2017 Seasonal Allergies Seasonal Allergies: Yes (MILD) Past Medical History Surgeries: Yes (breast reduction, several cysto's with UD, lap santa) Abdominal, Appendectomy, Bladder Surgery, Breast, Gallbladder, Hysterectomy, Oophorectomy, Renal, Tonsillectomy, Tubal Ligation Respiratory: Yes (MILD ASTHMA RELATED TO SEASONAL ALLERGIES) Asthma, Pneumonia, Chronic Bronchitis, Sleep Apnea Currently Using CPAP: Yes (DOESNT USE ALL THE TIME) Currently Using BIPAP: No Cardiac: Yes (TACHYCARDIA) High Cholesterol, Hypertension, Irregular Heartbeat Neurological: Yes (LAST SEIZURE 07/2017) Headaches /Migraines, Seizure Disorder : No Reproductive Disorders: No 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 Problems, Ovarian Cyst [employer] History: Hysterectomy, Menopausal Sexually Transmitted Disease: No HIV/AIDS: No Genitourinary: Yes (INCONTINENCE) Bladder Infection, Kidney Stones, Renal Failure, UTI-Chronic Gastrointestinal: Yes (S/P HIATAL HERNIA REPAIR) Gastroesophageal Reflux, Pancreatitis, Chronic Diarrhea, Hiatal Hernia Musculoskeletal: Yes Fibromyalgia, Chronic Back Pain Endocrine: No HEENT: No Loss of Vision: Bilateral Hearing Impairment: Denies Cancer: Yes Vaginal Did You Recieve Any Treatments: Yes What Type of Treatment Did You: Surgical Intervention Psychosocial: Yes (EXTENSIVE PSYCH ISSUES) Anxiety, Depression Integumentary: No Blood Disorders: No Adverse Reaction/Blood Tranf: No (HAS HAD BLOOD WITH NO REACTION) Family Medical History Reviewed Nursing Family Hx Dementia 19 FATHER Family history: Cardiovascular disease 19 FATHER Family history: Diabetes mellitus G8 SISTER Family history: Hypertension 19 FATHER 19 MOTHER History of - respiratory disease 19 MOTHER Seizure disorder G8 SISTER No Family History of: Abdominal aortic aneurysm [place]'s disease Alcoholism Aphasia Cancer Cancer of colon Cataract Chest pain Congenital heart disease Congestive heart failure Cystic fibrosis Family history: Osteoporosis Family history: Thyroid disorder Headache Hearing loss Heart disease Hereditary disease History of - anemia History of - disorder History of drug abuse Human immunodeficiency virus (HIV) seropositivity Hypercholesterolemia Infertile Kidney disease Malignant neoplasm of lung Myocardial infarction Parkinson's disease Prostate cancer Psychotic disorder Stroke Tuberculosis Visual impairment Heart Disease, Diabetes, Hypertension, Lung Disease, Seizures Physical Exam Vital Signs Vital Signs - First Documented 07/15/19 07/15/19 07/15/19 06:17 06:52 07:01 Temp 36.1 Pulse 73 Resp 20 B/P (MAP) 152/108 (123) Pulse Ox 96 O2 Delivery Room Air Capillary Refill : Less Than 3 Seconds Height, Weight, BMI Height: 5'1.00" Weight: 162lbs. 0.0oz. 73.998974qh; 29.00 BMI Method:Stated General Appearance: WD/WN, Anxious, Moderate Distress HEENT: PERRL/EOMI, Normal ENT Inspection, Other (mucous membranes somewhat dry) Neck: Normal Inspection Respiratory: Lungs Clear, Normal Breath Sounds, No Accessory Muscle Use, No Respiratory Distress Cardiovascular: Regular Rate, Rhythm, No Edema, No Murmur Progress/Results/Core Measures Results/Orders Lab Results Laboratory Tests Test 07/15/19 06:43 07/15/19 06:47 07/15/19 07:05 07/15/19 08:50 Range/Units C-Reactive Protein High Sensitivity 0.14 0.00-0.50 MG/DL White Blood Count 7.1 4.3-11.0 10^3/uL Red Blood Count 5.02 4.35-5.85 10^6/uL Hemoglobin 14.2 11.5-16.0 G/DL Hematocrit 42 35-52 % Mean Corpuscular Volume 84 80-99 FL Mean Corpuscular Hemoglobin 28 25-34 PG Mean Corpuscular Hemoglobin Concent 34 32-36 G/DL Red Cell Distribution Width 12.9 10.0-14.5 % Platelet Count 212 130-400 10^3/uL Mean Platelet Volume 10.6 H 7.4-10.4 FL Neutrophils (%) (Auto) 46 42-75 % Lymphocytes (%) (Auto) 43 12-44 % Monocytes (%) (Auto) 9 0-12 % Eosinophils (%) (Auto) 2 0-10 % Basophils (%) (Auto) 0 0-10 % Neutrophils # (Auto) 3.3 1.8-7.8 X 10^3 Lymphocytes # (Auto) 3.0 1.0-4.0 X 10^3 Monocytes # (Auto) 0.6 0.0-1.0 X 10^3 Eosinophils # (Auto) 0.1 0.0-0.3 10^3/uL Basophils # (Auto) 0.0 0.0-0.1 10^3/uL Prothrombin Time 13.2 12.2-14.7 SEC INR Comment 1.0 0.8-1.4 Activated Partial Thromboplast Time 31 24-35 SEC Sodium Level 136 135-145 MMOL/L Potassium Level 4.7 3.6-5.0 MMOL/L Chloride Level 107 98-107 MMOL/L Carbon Dioxide Level 19 L 21-32 MMOL/L Anion Gap 10 5-14 MMOL/L Blood Urea Nitrogen 13 7-18 MG/DL Creatinine 1.07 0.60-1.30 MG/DL Estimat Glomerular Filtration Rate 54 BUN/Creatinine Ratio 12 Glucose Level 106 H 70-105 MG/DL Calcium Level 9.5 8.5-10.1 MG/DL Corrected Calcium 9.3 8.5-10.1 MG/DL Magnesium Level 2.1 1.6-2.4 MG/DL Total Bilirubin 0.3 0.1-1.0 MG/DL Aspartate Amino Transf (AST/SGOT) 18 5-34 U/L Alanine Aminotransferase (ALT/SGPT) 12 0-55 U/L Alkaline Phosphatase 55 40-136 U/L Myoglobin 18.6 10.0-92.0 NG/ML Troponin I < 0.028 < 0.028 <0.028 NG/ML Total Protein 7.9 6.4-8.2 GM/DL Albumin 4.3 3.2-4.5 GM/DL Urine Color YELLOW Urine Clarity CLEAR Urine pH 6.5 5-9 Urine Specific [place] <=1.005 1.016-1.022 Urine Protein NEGATIVE NEGATIVE Urine Glucose (UA) NEGATIVE NEGATIVE Urine Ketones NEGATIVE NEGATIVE Urine Nitrite NEGATIVE NEGATIVE Urine Bilirubin NEGATIVE NEGATIVE Urine Urobilinogen 0.2 < = 1.0 MG/DL Urine Leukocyte Esterase TRACE H NEGATIVE Urine RBC (Auto) 3+ H NEGATIVE Urine RBC 5-10 H /HPF Urine WBC 2-5 /HPF Urine Squamous Epithelial Cells 0-2 /HPF Urine Crystals NONE /LPF Urine Bacteria NEGATIVE /HPF Urine Casts NONE /LPF Urine Mucus NEGATIVE /LPF Urine Culture Indicated NO TSH [place] Testing 4.02 0.35-4.94 UIU/ML Urine Opiates Screen NEGATIVE NEGATIVE Urine Oxycodone Screen NEGATIVE NEGATIVE Urine Methadone Screen NEGATIVE NEGATIVE Urine Propoxyphene Screen NEGATIVE NEGATIVE Urine Barbiturates Screen NEGATIVE NEGATIVE Ur Tricyclic Antidepressants Screen POSITIVE H NEGATIVE Urine Phencyclidine Screen NEGATIVE NEGATIVE Urine Amphetamines Screen NEGATIVE NEGATIVE Urine Methamphetamines Screen NEGATIVE NEGATIVE Urine Benzodiazepines Screen POSITIVE H NEGATIVE Urine Cocaine Screen NEGATIVE NEGATIVE Urine Cannabinoids Screen NEGATIVE NEGATIVE My Orders Orders - ANGEL MATA MD Cbc With Automated Diff (07/15/19 06:32) Magnesium (07/15/19 06:32) Chest 1 View, Ap/Pa Only (07/15/19 06:32) Ekg Tracing (07/15/19 06:32) Comprehensive Metabolic Panel (07/15/19 06:32) Myoglobin Serum (07/15/19 06:32) Protime With Inr (07/15/19 06:32) Partial Thromboplastin Time (07/15/19 06:32) O2 (07/15/19 06:32) Monitor-Rhythm Ecg Trace Only (07/15/19 06:32) Ed Iv/Invasive Line Start (07/15/19 06:32) Troponin I (07/15/19 06:32) Nitroglycerin 0.4 Mg Btl 25's (Nitrostat (07/15/19 06:45) Aspirin Chewable Tablet (Baby Aspirin Ch (07/15/19 06:45) Fentanyl Injection (Sublimaze Injection (07/15/19 07:30) Ct Angio Chest W (07/15/19 07:22) Drug Screen Stat (Urine) (07/15/19 07:38) Thyroid Analyzer (07/15/19 07:38) Ua Culture If Indicated (07/15/19 07:38) Iohexol Injection (Omnipaque 350 Mg/Ml 1 (07/15/19 08:00) Received Contrast (Hold Metformin- Contr (07/15/19 08:00) Ns (Ivpb) (Sodium Chloride 0.9% Ivpb Bag (07/15/19 08:00) Hs C Reactive Protein (07/15/19 08:22) Troponin I (07/15/19 08:45) Ekg Tracing (07/15/19 08:26) Morphine Injection (Morphine Injection (07/15/19 08:27) Lidocaine 2% Viscous 15 Ml (Xylocaine Vi (07/15/19 10:00) Antacid Suspension (Mylanta Suspension (07/15/19 10:00) Medications Given in ED Current Medications Medications Dose Ordered Sig/Tk Route Start Time Stop Time Status Last Admin Dose Admin Al Hydrox/Mg Hydrox/Simethicone 30 ml ONCE ONCE PO 07/15/19 10:00 07/15/19 10:01 DC 07/15/19 09:52 30 ML Aspirin 324 mg ONCE ONCE PO 07/15/19 06:45 07/15/19 06:46 DC 07/15/19 06:51 324 MG Fentanyl Citrate 50 mcg ONCE ONCE IVP 07/15/19 07:30 07/15/19 07:31 DC 07/15/19 07:28 50 MCG Iohexol 100 ml ONCE ONCE IV 07/15/19 08:00 07/15/19 08:01 DC 07/15/19 07:53 75 ML Lidocaine HCl 15 ml ONCE ONCE PO 07/15/19 10:00 07/15/19 10:01 DC 07/15/19 09:53 15 ML Nitroglycerin 0.4 mg UD PRN SL 07/15/19 06:45 07/15/19 10:38 DC 07/15/19 06:51 0.4 MG Sodium Chloride 100 ml ONCE ONCE IV 07/15/19 08:00 07/15/19 08:01 DC 07/15/19 07:53 80 ML Vital Signs/I&O 07/15/19 07/15/19 07/15/19 07/15/19 06:17 06:52 07:01 10:35 Temp 36.1 Pulse 73 65 Resp 20 20 B/P (MAP) 152/108 (123) 175/114 (134) 145/96 (134) Pulse Ox 96 96 O2 Delivery Room Air Room Air Blood Pressure Mean: 134 Progress Progress Note #1: Time: 07:24 Progress Note Chest pain workup was pursued. Patient received aspirin and nitroglycerin. One dose of nitroglycerin dropped her blood pressure by about 40 mmHg. However, this did not improve her pain. She reports her pain is still severe. Fentanyl has been ordered. CT angiogram is pending. Progress Note #2: Time: 08:36 Progress Note Patient still complains of significant pain. 4 mg of morphine was ordered. CT angiogram was negative for aortic or pulmonary artery pathology. There was significant atelectasis in the left lung base. I've ordered a CRP to be sure there is no infection associated with this. A 2 hour troponin and EKG are being obtained for cardiac rule out. Progress Note #3: Time: 10:18 Progress Note She was treated with morphine for her continued pain. She had mild residual pain of 2 or 3 after that. A GI cocktail was then administered and that resolved her chest pain. 2 hour troponin and EKG were negative. She was reexamined with minimal pain in the back. She was mildly tender to palpation over the upper thoracic spine and moderately tender to palpation in the paraspinous muscles. She seemed to target these muscles as the focus of her pain at this time. She would like to try a muscle relaxer at home. She also states she has been out of her Requip and will not be able to get a renewal from her psychiatric provider until July 29. She requests a short-term bridging prescription. Initial ECG Impression Date: Jul 15, 2019 Initial ECG Impression Time: 06:35 Initial ECG Rate: 69 Initial ECG Rhythm: Normal Sinus Initial ECG Intervals: Normal Initial ECG Impression: Normal Comment Normal sinus rhythm with no ST elevation or depression. No abnormal intervals or axis deviation. EKG : EKG Time: 08:58 Rate: 64 Rhythm: Normal Sinus Intervals: Normal ECG Impression: Normal Comment Normal sinus rhythm with no ST elevation or depression. No abnormal intervals or axis deviation. Diagnostic Imaging Diagonstic Imaging: Xray Plain Films/CT/US/NM/MRI: chest Comments Chest x-ray viewed by me and report reviewed. See report below: NAME: REJI [facility]ONEY [facility] REC#: [id number] PT STATUS: REG ER : 1970 PHYSICIAN: ANGEL MATA MD ADMIT DATE: 07/15/19/ER Draft Date of Exam:07/15/19 CHEST 1 VIEW, AP/PA ONLY INDICATION: Chest pain COMPARISON: 10/13/2014 FINDINGS: Left basilar bandlike opacities favor atelectasis. There are also right basilar linear opacities that would be most compatible with atelectasis. No dense consolidations. Posterior lower lobes are poorly evaluated by portable radiography. No pleural effusion or pneumothorax. Normal cardiomediastinal silhouette. IMPRESSION: 1. Bibasilar subsegmental atelectasis. No acute process by portable radiography. Dictated on workstation # [id number] Dict: 07/15/19 0709 Trans: 07/15/19 0715 [id number] Interpreted by: JITENDRA MONTEIRO MD Diagonstic Imaging: CT Plain Films/CT/US/NM/MRI: chest Comments CT angiogram chest viewed by me and report reviewed. See report below: NAME: ANY [facility] REC#: [id number] PT STATUS: REG ER : 1970 PHYSICIAN: ANGEL MATA MD ADMIT DATE: 07/15/19/ER Draft Date of Exam:07/15/19 CT ANGIO CHEST W EXAMINATION: CT angiography of the chest. TECHNIQUE: Contrast enhanced thin section helical images were obtained through the chest with intravenous contrast timed for the optimal opacification of the arterial structures per CTA protocol. Post-processing, reconstructions and interpretation of angiographic images of the vessels was performed. 3D MIP reconstructions were performed and reviewed. All CT scans use one or more of the following dose optimizing techniques: automated exposure control, MA and/or KvP adjustment based on a patient size and exam type, or iterative reconstruction. INDICATION: Chest pain. COMPARISON: 04/09/2015 FINDINGS: There is no pulmonary embolism. Aorta is normal in caliber. There is no edema or pneumonia. No pleural effusion. No pneumothorax. No suspicious nodules. There is mild atelectasis in the lung bases. Heart size is normal. There are no coronary artery calcifications. No pericardial effusion. Aorta is normal in caliber. There is no axillary or supraclavicular lymphadenopathy. There is no mediastinal lymphadenopathy. Limited views of the upper abdomen show an absent gallbladder. There are no suspicious osseus lesions. IMPRESSION: 1. No pulmonary embolism, mild bibasilar atelectasis. Dictated on workstation # [id number] Dict: 07/15/19 0804 Trans: 07/15/19 0809 [id number] Interpreted by: SLADE YUNG MD Departure Impression Primary Impression: Chest pain Qualified Codes: R07.9 - Chest pain, unspecified Additional Impressions: Upper back pain Restless leg syndrome Disposition: 01 HOME, SELF-CARE Condition: Improved Departure-Patient Inst. Decision time for Depature: 10:20 Referrals: SABIHA MAST MD (PCP/Family) Primary Care Physician Patient Instructions: Chest Pain, Restless Legs Syndrome Add. Discharge Instructions: Continue your usual medications as prescribed. You may take Tylenol and/or ibuprofen for your back pain. Follow-up with your primary care provider soon as possible. For muscle tension and spasm you may try cyclobenzaprine as prescribed. Return to the emergency room if you have worsening symptoms. All discharge instructions reviewed with patient and/or family. Voiced understanding. Scripts Cyclobenzaprine HCl (Cyclobenzaprine HCl) 10 Mg Tablet 10 MG PO Q8H PRN for SPASMS, #10 TAB 0 Refills Prov: ANGEL MATA MD 07/15/19 Ropinirole HCl (Requip) 0.25 Mg Tab 0.25 MG PO HS, #10 TAB Prov: ANGEL MATA MD 07/15/19 Copy Copies To 1: SABIHA MAST MD, JOSHUA T MD Jul 15, 2019 07:17
--- NOTE | 2019-07-15 07:20 | NUR ---
PT CO OF PAIN
[2019-07-15 07:26] LABS: CREATININE SERUM 1.07 MG/DL (0.60-1.30)
[2019-07-15 07:28] LABS: ALBUMIN 4.3 GM/DL (3.2-4.5); BILIRUBIN,TOTAL 0.3 MG/DL (0.1-1.0); CALCIUM 9.5 MG/DL (8.5-10.1); MAGNESIUM 2.1 MG/DL (1.6-2.4); POTASSIUM 4.7 MMOL/L (3.6-5.0); TOTAL PROTEIN 7.9 GM/DL (6.4-8.2)
[2019-07-15] MEDS ORDERED: fentaNYL INJECTION 100 MCG/2 ML AMP IVP ONE (07:30)
[2019-07-15 07:45] LABS: BILIRUBIN,URINE NEGATIVE (NEGATIVE); CLARITY,URINE CLEAR; COLOR,URINE YELLOW; GLUCOSE, URINE (UA) NEGATIVE (NEGATIVE); KETONES,URINE NEGATIVE (NEGATIVE); LEUKOCYTE ESTERASE ,URINE TRACE (NEGATIVE); NITRITE,URINE NEGATIVE (NEGATIVE); PH,URINE 6.5 (5-9); PROTEIN,URINE NEGATIVE (NEGATIVE)
[2019-07-15 07:55] LABS: BACTERIA,URINE NEGATIVE /HPF; SQUAMOUS EPITHELIAL CELL,UR 0-2 /HPF
[2019-07-15 07:57] LABS: AMPHETAMINE SCREEN, URINE NEGATIVE (NEGATIVE); BARBITURATE SCREEN URINE NEGATIVE (NEGATIVE); BENZODIAZEPINES SCREEN URINE POSITIVE (NEGATIVE); CANNABINOID SCREEN, URINE NEGATIVE (NEGATIVE); COCAINE SCREEN URINE NEGATIVE (NEGATIVE); METHADONE STAT NEGATIVE (NEGATIVE); METHAMPHETAMINE SCREEN URINE S NEGATIVE (NEGATIVE); OPIATE SCREEN URINE NEGATIVE (NEGATIVE); OXYCODONE STAT NEGATIVE (NEGATIVE); PROPOXYPHENE STAT NEGATIVE (NEGATIVE); TRICYCLIC ANTIDEPRESSANTS SCRE POSITIVE (NEGATIVE)
[2019-07-15] MEDS ORDERED: IOHEXOL 350 MG/ML 100 ML (OMNIPAQUE 350) VIAL IV ONE (08:00)
[2019-07-15] MEDS ORDERED: NS 100 ML (IVPB) BAG IV ONE (08:00)
[2019-07-15] MEDS ORDERED: HOLD METFORMIN - RECEIVED CONTRAST 20 ML VIAL IV SCH (08:00)
--- NOTE | 2019-07-15 08:10 | Diagnostic Imaging Report ---
EXAMINATION: CT angiography of the chest. TECHNIQUE: Contrast enhanced thin section helical images were obtained through the chest with intravenous contrast timed for the optimal opacification of the arterial structures per CTA protocol. Post-processing, reconstructions and interpretation of angiographic images of the vessels was performed. 3D MIP reconstructions were performed and reviewed. All CT scans use one or more of the following dose optimizing techniques: automated exposure control, MA and/or KvP adjustment based on a patient size and exam type, or iterative reconstruction. INDICATION: Chest pain. COMPARISON: 04/09/2015 FINDINGS: There is no pulmonary embolism. Aorta is normal in caliber. There is no edema or pneumonia. No pleural effusion. No pneumothorax. No suspicious nodules. There is mild atelectasis in the lung bases. Heart size is normal. There are no coronary artery calcifications. No pericardial effusion. Aorta is normal in caliber. There is no axillary or supraclavicular lymphadenopathy. There is no mediastinal lymphadenopathy. Limited views of the upper abdomen show an absent gallbladder. There are no suspicious osseus lesions. IMPRESSION: 1. No pulmonary embolism, mild bibasilar atelectasis. Dictated by: Dictated on workstation # [id number]
[2019-07-15] MEDS ORDERED: morphine INJ 10 MG/ML 1ML (SYR OR VIAL) IVP STA (08:27)
--- NOTE | 2019-07-15 08:58 | NUR ---
REPEAT TROPONIN DRAWN
[2019-07-15] MEDS ORDERED: LIDOCAINE 2% VISCOUS 15 ML UDC PO ONE (10:00)
[2019-07-15] MEDS ORDERED: ANTACID SUSP 30 ML UDC (MYLANTA) PO ONE (10:00)
[2019-07-15] MEDS ORDERED: RPN.25T PO (10:24)
[2019-07-15] MEDS ORDERED: CYCL10TA9 PO (10:24)
[2019-07-15 10:35] VITALS: BP 145/96
== END 2019-07-15 10:38 | disposition home or self-care (01) ==
LOC: EDUNIT# 06:11 → ER 06:13
DX: R07.9 Chest pain, unspecified (principal); M54.6 Pain in thoracic spine; G25.81 Restless legs syndrome; I10 Essential (primary) hypertension; E78.00 Pure hypercholesterolemia, unspecified; K21.9 Gastro-esophageal reflux disease without esophagitis; F41.9 Anxiety disorder, unspecified; F32.9 Major depressive disorder, single episode, unspecified; G40.909 Epilepsy, unspecified, not intractable, without status epilepticus; Z88.2 Allergy status to sulfonamides; Z88.8 Allergy status to other drugs, medicaments and biological substances; Z88.6 Allergy status to analgesic agent; Z88.1 Allergy status to other antibiotic agents; Z88.5 Allergy status to narcotic agent; Z85.44 Personal history of malignant neoplasm of other female genital organs; Z82.49 Family history of ischemic heart disease and other diseases of the circulatory system
CPT/HCPCS: 36415; 71045; 71275; 80053; 80306; 81000; 83735; 83874; 84443; 84484; 85025; 85610; 85730; 86141; 93005; 93041; 96374; 96375

== ENCOUNTER 2019-09-10 15:06 | Emergency (ER) | payer MEDICARE ==
[~2019-09-10] VITALS: Ht 154.9 cm; Wt 72.5 kg
[~2019-09-10 15:06] MED LIST changes: -HYDR-3812 PO; -OMEP-280 PO; +OMEP20CA18 PO; +RPN.25T PO
[2019-09-10 15:10] VITALS: BP 127/89
[2019-09-10] MEDS ORDERED: GABA-488 (15:24)
--- NOTE | 2019-09-10 15:27 | ED Back Pain ---
General Chief Complaint: Back Problems Stated Complaint: MUSCLE SPASM IN BACK, History of Present Illness Date Seen by Provider: Sep 10, 2019 Time Seen by Provider: 15:15 Initial Comments 49-year-old female with chronic history of low back pain presents after lifting some bags yesterday and having spasms in her mid to lower back. She was seen by a neurosurgeon several years ago and told to return to this disease in her lower spine. She has not been using medication regularly for her back. She has tried Naprosyn, heat/ice and muscle creams with no improvement in her symptoms. No bowel or bladder incontinence or retention. Timing/Duration: 24 Hours Severity: Moderate Pain/Injury Location: Back Associated Symptoms: muscle spasms; No weakness, No numbness in legs/feet, No tingling in legs/feet, No sensory/motor loss; lower back pain; No loss of bladder control, No loss of bowel control Allergies and Home Medications Allergies Coded Allergies: Sulfa (Sulfonamide Antibiotics) (Unverified Allergy, Unknown, 12/28/17) famotidine (Unverified Allergy, Unknown, dry heaves, 01/13/18) hydrocodone (Verified Allergy, Unknown, itching. Pt has received hydromorphone w/o issue, 12/29/17) NOTE: Patient has taken Percocet and Lortab as home meds as recent as 12/25/17 ketorolac (Unverified Allergy, Unknown, 01/13/18) ketorolac tromethamine (Verified Allergy, Unknown, 12/28/17) levofloxacin (Unverified Allergy, Unknown, 12/28/17) GIVES HER THRUSH nitrofurantoin (Unverified Allergy, Unknown, 12/28/17) ondansetron (Verified Allergy, Unknown, 12/28/17) tramadol (Unverified Allergy, Unknown, 12/28/17) codeine (Unverified Adverse Reaction, Unknown, 01/26/18) Uncoded Allergies: SULFA (Allergy, Unknown, 01/13/18) Home Medications Alprazolam 1 Mg Tablet, 2 MG PO HS, (Reported) TAKES 2 (1MG) TABLETS Amlodipine Besylate 2.5 Mg Tablet, 2.5 MG PO DAILY, (Reported) Atorvastatin Calcium 10 Mg Tablet, 10 MG PO HS, (Reported) Carisoprodol 250 Mg Tablet, 250 MG PO Q8H PRN for SPASMS Prescribed by: TARSHA PARRA on 09/10/19 1532 Metoprolol Tartrate 50 Mg Tablet, 50 MG PO HS, (Reported) Quetiapine Fumarate 300 Mg Tablet, 300 MG PO HS, (Reported) Ropinirole HCl 0.25 Mg Tab, 0.25 MG PO HS Prescribed by: ANGEL DOBSON on 07/15/19 1024 Patient Home Medication List Home Medication List Reviewed: Yes Review of Systems Constitutional: no symptoms reported, see HPI Musculoskeletal: see HPI, back pain, muscle pain All Other Systems Reviewed Negative Unless Noted: Yes Past Lmfxcez-Swwinr-Xhoenm Hx Past Med/Social Hx: Reviewed Nursing Past Med/Soc Hx Patient Social History 2nd Hand Smoke Exposure: No Recent Hopitalizations: No Immunizations Up To Date Tetanus Booster (TDap): Unknown PED Vaccines UTD: No Date of Pneumonia Vaccine: Mar 01, 2013 Date of Influenza Vaccine: Mar 16, 2017 Seasonal Allergies Seasonal Allergies: Yes (MILD) Past Medical History Surgeries: Yes (breast reduction, several cysto's with UD, lap santa) Abdominal, Appendectomy, Bladder Surgery, Breast, Gallbladder, Hysterectomy, Oophorectomy, Renal, Tonsillectomy, Tubal Ligation Respiratory: Yes (MILD ASTHMA RELATED TO SEASONAL ALLERGIES) Asthma, Pneumonia, Chronic Bronchitis, Sleep Apnea Currently Using CPAP: Yes (DOESNT USE ALL THE TIME) Currently Using BIPAP: No Cardiac: Yes (TACHYCARDIA) High Cholesterol, Hypertension, Irregular Heartbeat Neurological: Yes (LAST SEIZURE 07/2017) Headaches /Migraines, Seizure Disorder Reproductive Disorders: No 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 Problems, 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, Menopausal Sexually Transmitted Disease: No HIV/AIDS: No Genitourinary: Yes (INCONTINENCE) Bladder Infection, Kidney Stones, Renal Failure, UTI-Chronic Gastrointestinal: Yes (S/P HIATAL HERNIA REPAIR) Gastroesophageal Reflux, Pancreatitis, Chronic Diarrhea, Hiatal Hernia Musculoskeletal: Yes Fibromyalgia, Chronic Back Pain Endocrine: No HEENT: No Loss of Vision: Bilateral Hearing Impairment: Denies Cancer: Yes Vaginal Did You Recieve Any Treatments: Yes What Type of Treatment Did You: Surgical Intervention Psychosocial: Yes (EXTENSIVE PSYCH ISSUES) Anxiety, Depression Integumentary: No Blood Disorders: No Adverse Reaction/Blood Tranf: No (HAS HAD BLOOD WITH NO REACTION) Family Medical History Dementia 19 FATHER Family history: Cardiovascular disease 19 FATHER Family history: Diabetes mellitus G8 SISTER Family history: Hypertension 19 FATHER 19 MOTHER History of - respiratory disease 19 MOTHER Seizure disorder G8 SISTER No Family History of: Abdominal aortic aneurysm [place]'s disease Alcoholism Aphasia Cancer Cancer of colon Cataract Chest pain Congenital heart disease Congestive heart failure Cystic fibrosis Family history: Osteoporosis Family history: Thyroid disorder Headache Hearing loss Heart disease Hereditary disease History of - anemia History of - disorder History of drug abuse Human immunodeficiency virus (HIV) seropositivity Hypercholesterolemia Infertile Kidney disease Malignant neoplasm of lung Myocardial infarction Parkinson's disease Prostate cancer Psychotic disorder Stroke Tuberculosis Visual impairment Heart Disease, Diabetes, Hypertension, Lung Disease, Seizures Physical Exam Vital Signs Vital Signs - First Documented 09/10/19 15:10 Temp 36.7 Pulse 83 Resp 16 B/P (MAP) 127/89 (102) Pulse Ox 94 O2 Delivery Room Air Capillary Refill : Height, Weight, BMI Height: 5'1.00" Weight: 162lbs. 0.0oz. 73.473197lk; 29.00 BMI Method:Stated General Appearance: No Apparent Distress, WD/WN Neck: Full Range of Motion, Normal Inspection, Non Tender, Supple Cardiovascular: Regular Rate, Rhythm, No Edema, No Gallop Respiratory: Chest Non Tender, Lungs Clear, Normal Breath Sounds Back: Normal Inspection, Decreased Range of Motion (secondary to pain), Muscle Spasm (lower thoracic and upper lumbar, right greater than left.), Other (ambulates with a steady heel-to-toe gait, able to rise on to her toes and heels. Power V/V L4-S1. Negative straight leg raising sign.) Extremity: Normal Capillary Refill, Normal Inspection, Normal Range of Motion, Non Tender Progress/Results/Core Measures Results/Orders My Orders Orders - TARSHA PARRA Promethazine Injection (Phenergan Injec (09/10/19 15:33) Orphenadrine Injection (Norflex Injectio (09/10/19 15:45) Medications Given in ED Current Medications Medications Dose Ordered Sig/Tk Route Start Time Stop Time Status Last Admin Dose Admin Orphenadrine Citrate 60 mg ONCE ONCE IM 09/10/19 15:45 09/10/19 15:43 DC 09/10/19 15:39 60 MG Vital Signs/I&O 09/10/19 15:10 Temp 36.7 Pulse 83 Resp 16 B/P (MAP) 127/89 (102) Pulse Ox 94 O2 Delivery Room Air Progress Progress Note : Progress Note 1600 Pharmacy called and her insurance will not cover Soma, changed to Zanaflex 4 mg #12, 1 po Q8 prn spasms, no refills. Departure Impression Primary Impression: Back strain Qualified Codes: S39.012A - Strain of muscle, fascia and tendon of lower back, initial encounter Additional Impressions: Back pain Qualified Codes: M54.5 - Low back pain Spasm of back muscles Disposition: HOME, SELF-CARE Condition: Improved Departure-Patient Inst. Decision time for Depature: 15:30 Referrals: SABIHA MAST MD (PCP/Family) Primary Care Physician Patient Instructions: Lumbar Muscle Strain (DC), Muscle Spasms (DC) Add. Discharge Instructions: Continue to alternate between heat and ice to your low back area Use [place] balm or icy hot patches to your low back. Take Aleve 2 tablets twice daily with food. Tylenol 650 mg every 8 hours as needed for pain. Use the muscle relaxant as prescribed. Follow-up with your primary care provider if symptoms are not improving or worsen. Return to the emergency department for new, urgent health care needs. All discharge instructions reviewed with patient and/or family. Voiced understanding. Scripts Carisoprodol (Soma) 250 Mg Tablet 250 MG PO Q8H PRN for SPASMS, #12 TAB 0 Refills Prov: TARSHA PARRA 09/10/19 TARSHA PARRA Sep 10, 2019 15:26
[2019-09-10] MEDS ORDERED: CEFEPIME INJECTION 2,000 MG in WATER (STERILE) FOR INJECTION 20 ML IV STA (15:28)
[2019-09-10] MEDS ORDERED: CARI250T PO (15:32)
[2019-09-10] MEDS ORDERED: PROMETHAZINE INJ 25 MG/ML (PHENERGAN) AMP IVP STA (15:33)
[2019-09-10] MEDS ORDERED: ORPHENADRINE 60 MG/2 ML (NORFLEX) AMP IM ONE (15:45)
== END 2019-09-10 15:42 | disposition home or self-care (01) ==
LOC: EDUNIT# 15:06 → ER 15:08
DX: S39.012A Strain of muscle, fascia and tendon of lower back, initial encounter (principal); M62.830 Muscle spasm of back; J45.909 Unspecified asthma, uncomplicated; G47.30 Sleep apnea, unspecified; E78.00 Pure hypercholesterolemia, unspecified; I10 Essential (primary) hypertension; G40.909 Epilepsy, unspecified, not intractable, without status epilepticus; K21.9 Gastro-esophageal reflux disease without esophagitis; K52.9 Noninfective gastroenteritis and colitis, unspecified; M79.7 Fibromyalgia; F41.9 Anxiety disorder, unspecified; F32.9 Major depressive disorder, single episode, unspecified; Z87.19 Personal history of other diseases of the digestive system; Z88.2 Allergy status to sulfonamides; Z88.5 Allergy status to narcotic agent; Z88.8 Allergy status to other drugs, medicaments and biological substances; Z79.899 Other long term (current) drug therapy; X50.9XXA Other and unspecified overexertion or strenuous movements or postures, initial encounter
CPT/HCPCS: 99284

== ENCOUNTER 2020-01-01 18:58 | Emergency (ER) | payer MEDICARE ==
[~2020-01-01] VITALS: Ht 162 cm; Wt 72.5 kg
[~2020-01-01 18:58] MED LIST changes: +CARI250T PO; +GABA-488
[2020-01-01 19:24] LABS: BILIRUBIN,URINE NEGATIVE (NEGATIVE); CLARITY,URINE CLEAR; COLOR,URINE YELLOW; GLUCOSE, URINE (UA) NEGATIVE (NEGATIVE); KETONES,URINE NEGATIVE (NEGATIVE); LEUKOCYTE ESTERASE ,URINE TRACE (NEGATIVE); NITRITE,URINE NEGATIVE (NEGATIVE); PROTEIN,URINE NEGATIVE (NEGATIVE)
[2020-01-01 19:35] LABS: BACTERIA,URINE FEW /HPF
[2020-01-01 19:39] LABS: BASOPHILS % (AUTO) 0 % (0-10); EOSINOPHILS # (AUTO) 0.2 10^3/uL (0.0-0.3); EOSINOPHILS % (AUTO) 3 % (0-10); HEMATOCRIT 42 % (35-52); HEMOGLOBIN 14.5 G/DL (11.5-16.0); LYMPHOCYTES # (AUTO) 3.3 X 10^3 (1.0-4.0); LYMPHOCYTES % (AUTO) 42 % (12-44); MEAN CORPUSCULAR HEMOGLOBIN 29 PG (25-34); MEAN CORPUSCULAR HGB CONC 35 G/DL (32-36); MEAN CORPUSCULAR VOLUME 83 FL (80-99); MEAN PLATELET VOLUME 10.9 FL (7.4-10.4); MONOCYTES # (AUTO) 0.7 X 10^3 (0.0-1.0); MONOCYTES % (AUTO) 9 % (0-12); NEUTROPHILS # (AUTO) 3.7 X 10^3 (1.8-7.8); NEUTROPHILS % (AUTO) 46 % (42-75); PLATELET COUNT 237 10^3/uL (130-400); RED CELL DISTRIBUTION WIDTH 12.6 % (10.0-14.5)
--- NOTE | 2020-01-01 19:45 | ED General ---
General Chief Complaint: General Problems/Pain Stated Complaint: DIFICULTY EXHALING,RIB PAIN Source of Information: Patient History of Present Illness Date Seen by Provider: Jan 01, 2020 Time Seen by Provider: 19:05 Initial Comments PT ARRIVES VIA POV FROM HOME STATES FOR THE LAST 2 WEEKS, SHE HAS BEEN HAVING PAIN IN HER RIGHT SHOULDER, RIGHT UPPER BACK, RIGHT RIBS INITIALLY, PAIN WOULD COME AND GO, BUT NOW IS CONSTANT STATES IT DOES NOT HURT TO TAKE A DEEP BREATH IN, BUT IT HURTS TO LET IT OUT NO COUGH NO FEVER/SWEATS/CHILLS NO ACTUAL SHORTNESS OF BREATH NO SWELLING IN LEGS/ FEET OR PAIN IN CALVES SLIGHT NAUSEA, NO VOMITING. NO DIARRHEA NO URINARY SYMPTOMS NO CHANGE IN TASTE OR SMELL TOOK 1 IBUPROFEN AT 1300 TODAY HAS CHRONIC BACK PAIN AND FIBROMYALGIA NO INJURY OR UNUSUAL ACTIVITY PT DOES NOT WORK NOR DOES HER NO KNOWN SICK CONTACTS OR EXPOSURE TO COVID-19. HAS NOT SOUGHT CARE UNTIL TODAY SYMPTOMS NO DIFFERENT TODAY PCP: [facility] Allergies and Home Medications Allergies Coded Allergies: Sulfa (Sulfonamide Antibiotics) (Unverified Allergy, Unknown, 12/28/17) famotidine (Unverified Allergy, Unknown, dry heaves, 01/13/18) hydrocodone (Verified Allergy, Unknown, itching. Pt has received hydromorphone w/o issue, 12/29/17) NOTE: Patient has taken Percocet and Lortab as home meds as recent as 12/25/17 ketorolac (Unverified Allergy, Unknown, 01/13/18) ketorolac tromethamine (Verified Allergy, Unknown, 12/28/17) levofloxacin (Unverified Allergy, Unknown, 12/28/17) GIVES HER THRUSH nitrofurantoin (Unverified Allergy, Unknown, 12/28/17) ondansetron (Verified Allergy, Unknown, 12/28/17) tramadol (Unverified Allergy, Unknown, 12/28/17) codeine (Unverified Adverse Reaction, Unknown, 01/26/18) Uncoded Allergies: SULFA (Allergy, Unknown, 01/13/18) Home Medications Alprazolam 1 Mg Tablet, 2 MG PO HS, (Reported) TAKES 2 (1MG) TABLETS Amlodipine Besylate 2.5 Mg Tablet, 2.5 MG PO DAILY, (Reported) Atorvastatin Calcium 10 Mg Tablet, 10 MG PO HS, (Reported) Carisoprodol 250 Mg Tablet, 250 MG PO Q8H PRN for SPASMS Prescribed by: TARSHA PARRA on 09/10/191531 Cefdinir 300 Mg Capsule, 300 MG PO BID Prescribed by: ZOFIA MORA on 01/01/202129 Metoprolol Tartrate 50 Mg Tablet, 50 MG PO HS, (Reported) Naproxen 500 Mg Tablet.dr, 500 MG PO BID Prescribed by: ZOFIA MORA on 01/01/202132 Promethazine HCl 25 Mg Supp.rect, 25 MG RC Q6 Prescribed by: ZOFIA MORA on 01/01/202129 Quetiapine Fumarate 300 Mg Tablet, 300 MG PO HS, (Reported) Ropinirole HCl 0.25 Mg Tab, 0.25 MG PO HS Prescribed by: ANGEL DOBSON on 07/15/191023 Tamsulosin HCl 0.4 Mg Cap, 0.4 MG PO DAILY Prescribed by: ZOFIA MORA on 01/01/202129 Tapentadol HCl 50 Mg Tablet, 50 MG PO Q6H Prescribed by: ZOFIA MORA on 01/01/202129 Patient Home Medication List Home Medication List Reviewed: Yes Review of Systems Review of Systems Constitutional: no symptoms reported; No chills, No diaphoresis, No dizziness, No fever EENTM: no symptoms reported Respiratory: see HPI; No cough, No dyspnea on exertion, No hemoptysis, No or thopnea, No phlegm, No short of breath, No stridor, No wheezing Cardiovascular: see HPI, chest pain; No edema, No palpitations, No syncope, No vascular heart diseas Gastrointestinal: see HPI; No abdominal pain, No constipation, No diarrhea, No loss of appetite; nausea; No vomiting Genitourinary: no symptoms reported Musculoskeletal: see HPI, back pain Skin: no symptoms reported Psychiatric/Neurological: No Symptoms Reported; Denies Numbness, Denies Paresthesia Hematologic/Lymphatic: No Symptoms Reported Immunological/Allergic: no symptoms reported Past Qofhfmy-Gtqdjz-Wlzppb Hx Past Med/Social Hx: Reviewed and Corrections made Patient Social History Alcohol Use: Denies Use Recreational Drug Use: No Smoking Status: Never a Smoker 2nd Hand Smoke Exposure: No Recent Foreign Travel: No Contact w/Someone Who Travel: No Recent Hopitalizations: No Immunizations Up To Date Tetanus Booster (TDap): Unknown PED Vaccines UTD: No Date of Pneumonia Vaccine: Mar 01, 2013 Date of Influenza Vaccine: Mar 16, 2017 Seasonal Allergies Seasonal Allergies: Yes (MILD) Past Medical History Surgeries: Yes (breast reduction;several cysto's with UD;lap gaby;LITHOTRIPSY/KIDNEY ST) Abdominal, Appendectomy, Bladder Surgery, Breast, Gallbladder, Hysterectomy, Oophorectomy, Renal, Tonsillectomy, Tubal Ligation Respiratory: Yes (MILD ASTHMA RELATED TO SEASONAL ALLERGIES) Asthma, Pneumonia, Chronic Bronchitis, Sleep Apnea Currently Using CPAP: Yes (DOESNT USE ALL THE TIME) Currently Using BIPAP: No Cardiac: Yes (TACHYCARDIA) High Cholesterol, Hypertension, Irregular Heartbeat Neurological: Yes (LAST SEIZURE 07/2017) Headaches /Migraines, Seizure Disorder Reproductive Disorders: Yes 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 Problems, 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, Menopausal Sexually Transmitted Disease: No HIV/AIDS: No Genitourinary: Yes (INCONTINENCE;LITHOTRIPSY/KIDNEY STONE REMOVAL) Bladder Infection, Kidney Stones, Renal Failure, UTI-Chronic Gastrointestinal: Yes (S/P HIATAL HERNIA REPAIR) Gastroesophageal Reflux, Pancreatitis, Chronic Diarrhea, Hiatal Hernia, Irritable Bowel Musculoskeletal: Yes Fibromyalgia, Chronic Back Pain Endocrine: No HEENT: No Loss of Vision: Bilateral Hearing Impairment: Denies Cancer: Yes Vaginal Did You Recieve Any Treatments: Yes What Type of Treatment Did You: Surgical Intervention Psychosocial: Yes (EXTENSIVE PSYCH ISSUES) Anxiety, Depression Integumentary: No Blood Disorders: No Adverse Reaction/Blood Tranf: No (HAS HAD BLOOD WITH NO REACTION) Family Medical History Dementia 19 FATHER Family history: Cardiovascular disease 19 FATHER Family history: Diabetes mellitus G8 SISTER Family history: Hypertension 19 FATHER 19 MOTHER History of - respiratory disease 19 MOTHER Seizure disorder G8 SISTER No Family History of: Abdominal aortic aneurysm [place]'s disease Alcoholism Aphasia Cancer Cancer of colon Cataract Chest pain Congenital heart disease Congestive heart failure Cystic fibrosis Family history: Osteoporosis Family history: Thyroid disorder Headache Hearing loss Heart disease Hereditary disease History of - anemia History of - disorder History of drug abuse Human immunodeficiency virus (HIV) seropositivity Hypercholesterolemia Infertile Kidney disease Malignant neoplasm of lung Myocardial infarction Parkinson's disease Prostate cancer Psychotic disorder Stroke Tuberculosis Visual impairment Heart Disease, Diabetes, Hypertension, Lung Disease, Seizures PSH: -CHOLECYSTECTOMY -APPENDECTOMY -LAP GABY FUNDOPLICATION -BILATERAL TUBAL LIGATION -LAPAROSCOPIES FOR OVARIAN CYSTS -HYSTERECTOMY/BILATERAL SALPINGO-OOPHORECTOMY -CYSTOSCOPIES AND URETHRAL DILATIONS -LITHOTRIPSY -CYSTOSCOPY WITH KIDNEY STONE REMOVAL -TONSILLECTOMY/ADENOIDECTOMY -BREAST REDUCTION Physical Exam Vital Signs Vital Signs - First Documented 01/01/20 19:34 Temp 36.4 Pulse 77 Resp 18 B/P (MAP) 168/100 (122) Pulse Ox 95 O2 Delivery Room Air Capillary Refill : Height, Weight, BMI Height: 5'1.00" Weight: 162lbs. 0.0oz. 73.232360yx; 30.00 BMI Method:Stated General Appearance: No Apparent Distress, WD/WN HEENT: PERRL/EOMI Neck: Full Range of Motion, Normal Inspection, Non Tender, Supple Respiratory: Normal Breath Sounds, No Accessory Muscle Use, No Respiratory Distress, Other (DIFFUSE RIGHT CHEST WALL / RIB TENDERNESS--ANTERIOR AND POSTERIOR) Cardiovascular: Regular Rate, Rhythm, No Edema, No JVD, No Murmur, Normal Peripheral Pulses Gastrointestinal: Normal Bowel Sounds, No Organomegaly, No Pulsatile Mass, Non Tender, Soft Back: No Vertebral Tenderness, Other (DIFFUSE RIGHT POSTERIOR RIB/CHEST WALL TENDERNESS. 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 Norm as Tested; No Abnormal Cerebellar Tests Skin: Normal Color, Warm/Dry; No Rash Progress/Results/Core Measures Suspected Sepsis SIRS Temperature: Pulse: Respiratory Rate: Laboratory Tests 01/01/20 19:28: White Blood Count 8.0 Blood Pressure / Mean: Laboratory Tests 01/01/20 19:28: Creatinine 1.00, Platelet Count 237, Total Bilirubin 0.5 Results/Orders Lab Results Laboratory Tests Test 01/01/20 19:16 01/01/20 19:28 Range/Units Urine Color YELLOW Urine Clarity CLEAR Urine pH 7.0 5-9 Urine Specific [place] 1.015 L 1.016-1.022 Urine Protein NEGATIVE NEGATIVE Urine Glucose (UA) NEGATIVE NEGATIVE Urine Ketones NEGATIVE NEGATIVE Urine Nitrite NEGATIVE NEGATIVE Urine Bilirubin NEGATIVE NEGATIVE Urine Urobilinogen 0.2 < = 1.0 MG/DL Urine Leukocyte Esterase TRACE H NEGATIVE Urine RBC (Auto) NEGATIVE NEGATIVE Urine RBC NONE /HPF Urine WBC 5-10 H /HPF Urine Crystals NONE /LPF Urine Bacteria FEW H /HPF Urine Casts NONE /LPF Urine Mucus NEGATIVE /LPF Urine Culture Indicated YES White Blood Count 8.0 4.3-11.0 10^3/uL Red Blood Count 5.08 4.35-5.85 10^6/uL Hemoglobin 14.5 11.5-16.0 G/DL Hematocrit 42 35-52 % Mean Corpuscular Volume 83 80-99 FL Mean Corpuscular Hemoglobin 29 25-34 PG Mean Corpuscular Hemoglobin Concent 35 32-36 G/DL Red Cell Distribution Width 12.6 10.0-14.5 % Platelet Count 237 130-400 10^3/uL Mean Platelet Volume 10.9 H 7.4-10.4 FL Neutrophils (%) (Auto) 46 42-75 % Lymphocytes (%) (Auto) 42 12-44 % Monocytes (%) (Auto) 9 0-12 % Eosinophils (%) (Auto) 3 0-10 % Basophils (%) (Auto) 0 0-10 % Neutrophils # (Auto) 3.7 1.8-7.8 X 10^3 Lymphocytes # (Auto) 3.3 1.0-4.0 X 10^3 Monocytes # (Auto) 0.7 0.0-1.0 X 10^3 Eosinophils # (Auto) 0.2 0.0-0.3 10^3/uL Basophils # (Auto) 0.0 0.0-0.1 10^3/uL Sodium Level 138 135-145 MMOL/L Potassium Level 3.8 3.6-5.0 MMOL/L Chloride Level 107 98-107 MMOL/L Carbon Dioxide Level 18 L 21-32 MMOL/L Anion Gap 13 5-14 MMOL/L Blood Urea Nitrogen 10 7-18 MG/DL Creatinine 1.00 0.60-1.30 MG/DL Estimat Glomerular Filtration Rate 59 BUN/Creatinine Ratio 10 Glucose Level 106 H 70-105 MG/DL Calcium Level 9.4 8.5-10.1 MG/DL Corrected Calcium 9.1 8.5-10.1 MG/DL Magnesium Level 2.1 1.6-2.4 MG/DL Total Bilirubin 0.5 0.1-1.0 MG/DL Aspartate Amino Transf (AST/SGOT) 13 5-34 U/L Alanine Aminotransferase (ALT/SGPT) 13 0-55 U/L Alkaline Phosphatase 54 40-136 U/L Total Protein 7.6 6.4-8.2 GM/DL Albumin 4.4 3.2-4.5 GM/DL Amylase Level 66 25-125 U/L Lipase 35 8-78 U/L My Orders Orders - ZOFIA MORA DO Ed Iv/Invasive Line Start (01/01/20 19:13) Monitor-Rhythm Ecg Trace Only (01/01/20 19:13) Amylase (01/01/20 19:13) Cbc With Automated Diff (01/01/20 19:13) Comprehensive Metabolic Panel (01/01/20 19:13) Lipase (01/01/20 19:13) Magnesium (01/01/20 19:13) Ua Culture If Indicated (01/01/20 19:13) Urine Culture (01/01/20 19:16) Ct Muriel Chest/Noang Abd-Pelv W (01/01/20 20:03) Chest Pa/Lat (2 View) (01/01/20 20:03) Iohexol Injection (Omnipaque 350 Mg/Ml 1 (01/01/20 20:30) Received Contrast (Hold Metformin- Contr (01/01/20 20:30) Sodium Chloride Flush (Catheter Flush Sy (01/01/20 20:30) Ns (Ivpb) (Sodium Chloride 0.9% Ivpb Bag (01/01/20 20:30) Diphenhydramine Injection (Benadryl Inje (01/01/20 20:59) Promethazine Injection (Phenergan Injec (01/01/20 20:59) Fentanyl Injection (Sublimaze Injection (01/01/20 21:31) Tamsulosin Capsule (Flomax Capsule) (01/01/20 21:45) Cefdinir Capsule (Omnicef Capsule) (01/01/20 21:45) Rx-Promethazine Hcl (Rx-Phenergan Supp) (01/01/20 21:31) Medications Given in ED Current Medications Medications Dose Ordered Sig/Tk Route Start Time Stop Time Status Last Admin Dose Admin Cefdinir 300 mg ONCE ONCE PO 01/01/20 21:45 01/01/20 21:46 DC 01/01/20 21:42 300 MG Diphenhydramine HCl 50 mg STK-MED ONCE .ROUTE 01/01/20 20:59 01/01/20 21:03 DC 01/01/20 21:02 50 MG Iohexol 100 ml ONCE ONCE IV 01/01/20 20:30 01/01/20 20:32 DC 01/01/20 20:32 80 ML Promethazine HCl 25 mg STK-MED ONCE .ROUTE 01/01/20 20:59 01/01/20 21:03 DC 01/01/20 21:02 25 MG Sodium Chloride 10 ml NEEDED PRN IV 01/01/20 20:30 01/01/20 21:48 DC 01/01/20 20:32 10 ML Sodium Chloride 100 ml ONCE ONCE IV 01/01/20 20:30 01/01/20 20:32 DC 01/01/20 20:32 80 ML Vital Signs/I&O 01/01/20 01/01/20 19:34 21:48 Temp 36.4 36.4 Pulse 77 73 Resp 18 18 B/P (MAP) 168/100 (122) 155/97 (122) Pulse Ox 95 95 O2 Delivery Room Air Room Air Capillary Refill : Progress Note : Progress Note GIVEN PHENERGAN/BENADRYL FOR NAUSEA, WITH IMPROVEMENT GIVEN FENTANYL FOR PAIN, WITH IMPROVEMENT AT DISMISSAL, PT NOW STATES THAT SHE DID HAVE BLOOD IN HER URINE LAST WEEK AND "THOUGHT SHE WAS PASSING A KIDNEY STONE" Diagnostic Imaging Comments CT CHEST/ABDOMEN/PELVIS--PER RADIOLOGIST REPORT AT 2120 IMPRESSION: 1. CTA chest shows no evidence of pulmonary emboli, aortic dissection or aneurysm. There are areas of scarring or atelectasis in the lung bases on both sides, left greater than right. There is a small 4 mm nodule in the right lower lobe which is stable compared to 07/15/2019. 2. CT abdomen and pelvis demonstrates fatty infiltration of the liver. There are intrarenal calculi in both kidneys. There is a 4 mm stone in the right mid to upper ureter with mild hydronephrosis. Reviewed: Reviewed by Me Departure Impression Primary Impression: Right ureteral calculus Additional Impression: UTI (urinary tract infection) Disposition: HOME, SELF-CARE Condition: Stable Departure-Patient Inst. Referrals: SABIHA MAST MD (PCP/Family) Primary Care Physician Patient Instructions: Urinary Tract Infection, Adult (DC), How to Strain Your Urine, Kidney Stones (DC) Add. Discharge Instructions: LOTS OF CLEAR LIQUIDS STRAIN ALL URINE--RETURN ANY STONES TO YOUR DR'S OFFICE FOLLOW UP WITH DR. HOOK THIS WEEK FOR FURTHER CARE All discharge instructions reviewed with patient and/or family. Voiced understanding. Scripts Naproxen (Naproxen) 500 Mg Tablet.dr 500 MG PO BID, #20 TAB Prov: MORGANZOFIA K DO 01/01/20 Cefdinir (Cefdinir) 300 Mg Capsule 300 MG PO BID, #20 CAP Prov: MORGAN,ZOFIA K DO 01/01/20 Tamsulosin HCl (Flomax) 0.4 Mg Cap 0.4 MG PO DAILY, #10 CAP Prov: MORGANPRECIOUSA K DO 01/01/20 Tapentadol HCl (Nucynta) 50 Mg Tablet 50 MG PO Q6H for Pain, #10 TAB Prov: MORGANPRECIOUSA K DO 01/01/20 Promethazine HCl (Promethazine Suppository) 25 Mg Supp.rect 25 MG RC Q6 for Nausea/Vomiting, #10 SUPP.RECT Prov: MORGANZOFIA K DO 01/01/20 MORGANZOFIA K DO Jan 01, 2020 19:45
[2020-01-01 19:56] LABS: ALBUMIN 4.4 GM/DL (3.2-4.5); BILIRUBIN,TOTAL 0.5 MG/DL (0.1-1.0); CALCIUM 9.4 MG/DL (8.5-10.1); MAGNESIUM 2.1 MG/DL (1.6-2.4); POTASSIUM 3.8 MMOL/L (3.6-5.0); TOTAL PROTEIN 7.6 GM/DL (6.4-8.2)
[2020-01-01] MEDS ORDERED: NS 100 ML (IVPB) BAG IV ONE (20:30)
[2020-01-01] MEDS ORDERED: HOLD METFORMIN - RECEIVED CONTRAST 20 ML VIAL IV SCH (20:30)
[2020-01-01] MEDS ORDERED: CATHETER FLUSH 10 ML SYR IV PRN (20:30)
[2020-01-01] MEDS ORDERED: IOHEXOL 350 MG/ML 100 ML (OMNIPAQUE 350) VIAL IV ONE (20:30)
--- NOTE | 2020-01-01 20:44 | Diagnostic Imaging Report ---
INDICATION: Chest tightness and difficulty breathing. EXAMINATION: PA and lateral chest obtained at 8:27 p.m. COMPARISON: 07/15/2019. FINDINGS: Heart and mediastinal silhouette are normal in appearance. There is some linear scarring in the left midlung which is similar to the prior study. There is no new consolidation, pneumothorax or pleural fluid. IMPRESSION: Unchanged linear scarring in the left midlung. No new infiltrate, pneumothorax or pleural fluid. Dictated by: Dictated on workstation # [id number]
[2020-01-01] MEDS ORDERED: diphenhydrAMINE 50 MG/ML INJ (BENADRYL) ONE (20:59)
[2020-01-01] MEDS ORDERED: PROMETHAZINE INJ 25 MG/ML (PHENERGAN) AMP ONE (20:59)
--- NOTE | 2020-01-01 21:19 | Diagnostic Imaging Report ---
INDICATION: Chest tightness and right-sided back pain and right flank pain. TECHNIQUE: CTA chest, abdomen and pelvis. Thin axial sections through the chest, abdomen and pelvis are obtained following intravenous contrast bolus. Multiplanar MIP images were reconstructed and reviewed. All CT scans use one or more of the following dose optimizing techniques: automated exposure control, MA and/or KvP adjustment based on patient size and exam type or iterative reconstruction. CTA CHEST FINDINGS: The pulmonary parenchymal vessels appear well opacified with no CT evidence of pulmonary emboli. Thoracic aorta shows no evidence of dissection or aneurysm. Great vessel origins are patent. There is no pleural effusion. There is a minimal trace of fluid in the pericardium. There is no mediastinal or hilar adenopathy. There are no enlarged axillary nodes. Lung parenchymal windows demonstrate some minimal atelectatic changes in the right lung base. There is a small pulmonary nodule in the right lower lobe measuring 4 mm, unchanged compared to the prior study. The left lung shows some areas of atelectatic change in the lower lobe versus scarring, similar to the previous study. There is no overt bony abnormality in the chest. CT ABDOMEN/PELVIS FINDINGS: The liver shows diffuse low-density change compatible with fatty infiltration. Gallbladder is absent. Spleen, adrenals and pancreas are normal in appearance. There are intrarenal calculi in both kidneys. On the right side, there is mild hydronephrosis with a stone in the upper to mid ureter, measuring about 4 mm in diameter. There are no stones seen beyond this point. There is no retroperitoneal mass or adenopathy. There is no ascites or abnormal fluid collection. Visualized bowel loops show no sign of obstruction or bowel wall thickening. Patient appears to have had prior hysterectomy. IMPRESSION: 1. CTA chest shows no evidence of pulmonary emboli, aortic dissection or aneurysm. There are areas of scarring or atelectasis in the lung bases on both sides, left greater than right. There is a small 4 mm nodule in the right lower lobe which is stable compared to 07/15/2019. 2. CT abdomen and pelvis demonstrates fatty infiltration of the liver. There are intrarenal calculi in both kidneys. There is a 4 mm stone in the right mid to upper ureter with mild hydronephrosis. Dictated by: Dictated on workstation # [id number]
[2020-01-01] MEDS ORDERED: TAPE50TA2 PO (21:30)
[2020-01-01] MEDS ORDERED: TMSL.4C PO (21:30)
[2020-01-01] MEDS ORDERED: CEFD300C3 PO (21:30)
[2020-01-01] MEDS ORDERED: PROM25SU44 RC (21:30)
[2020-01-01] MEDS ORDERED: RX-PHENERGAN 25 MG SUPP PPK#3 PR STA (21:31)
[2020-01-01] MEDS ORDERED: fentaNYL INJECTION 100 MCG/2 ML AMP IVP STA (21:31)
[2020-01-01] MEDS ORDERED: NAPR500T8 PO (21:33)
[2020-01-01] MEDS ORDERED: TAMSULOSIN 0.4 MG (FLOMAX) CAP PO SCH (21:45)
[2020-01-01] MEDS ORDERED: CEFDINIR 300 MG (OMNICEF) CAP PO ONE (21:45)
[2020-01-01 21:48] VITALS: BP 155/97
[2020-01-04] MEDS ORDERED: NAPR220T66 PO (06:35)
[2020-01-04] MEDS ORDERED: RT-ALBUINH IH (06:35)
[2020-01-04] MEDS ORDERED: TMSL.4C PO (09:29)
[2020-01-04] MEDS ORDERED: CEPH-507 PO (09:29)
[2020-01-04] MEDS ORDERED: HYOS0.1281 PO (09:29)
== END 2020-01-01 21:48 | disposition home or self-care (01) ==
LOC: EDUNIT# 18:58 → ER 19:00
DX: N20.0 Calculus of kidney (principal); N39.0 Urinary tract infection, site not specified; M54.9 Dorsalgia, unspecified; G89.29 Other chronic pain; J45.909 Unspecified asthma, uncomplicated; E78.00 Pure hypercholesterolemia, unspecified; I10 Essential (primary) hypertension; G40.909 Epilepsy, unspecified, not intractable, without status epilepticus; K21.9 Gastro-esophageal reflux disease without esophagitis; K58.0 Irritable bowel syndrome with diarrhea; M79.10 Myalgia, unspecified site; F41.9 Anxiety disorder, unspecified; F32.9 Major depressive disorder, single episode, unspecified; Z87.19 Personal history of other diseases of the digestive system; Z87.01 Personal history of pneumonia (recurrent); Z79.899 Other long term (current) drug therapy; Z88.2 Allergy status to sulfonamides; Z88.5 Allergy status to narcotic agent; Z88.8 Allergy status to other drugs, medicaments and biological substances
CPT/HCPCS: 36415; 71046; 71275; 74177; 80053; 81000; 82150; 83690; 83735; 85025; 87088; 93041

== ENCOUNTER 2020-01-03 13:44 | Outpatient (CLI) | payer MEDICARE ==
[~2020-01-03] VITALS: Ht 162 cm; Wt 72.5 kg
[~2020-01-03 13:44] MED LIST changes: -HYOS0.1281 PO; -NAPR220T66 PO; -QUET400T12 PO; -ROPI0.253 PO; -ROSU10TA28 PO
[2020-01-03] MEDS ORDERED: QUET400T12 PO (14:51)
[2020-01-03] MEDS ORDERED: GABA300C PO (14:51)
[2020-01-03] MEDS ORDERED: TRAZ150T72 PO (14:51)
[2020-01-03] MEDS ORDERED: ROSU10TA28 PO (14:51)
[2020-01-03] MEDS ORDERED: ROPI0.253 PO (14:51)
[2020-01-04] MEDS ORDERED: NAPR220T66 PO (06:35)
[2020-01-04] MEDS ORDERED: RT-ALBUINH IH (06:35)
[2020-01-04] MEDS ORDERED: CEPH-507 PO (09:29)
[2020-01-04] MEDS ORDERED: TMSL.4C PO (09:29)
[2020-01-04] MEDS ORDERED: HYOS0.1281 PO (09:29)
== END 2020-01-03 15:05 | disposition home or self-care (01) ==
LOC: PREOP 13:44
PROVIDERS: ATTEND Urology
DX: Z01.818 Encounter for other preprocedural examination (principal)

== ENCOUNTER 2020-01-03 15:21 | Emergency (ER) | payer MEDICARE ==
[~2020-01-03 15:21] MED LIST changes: +QUET400T12 PO; +ROPI0.253 PO; +ROSU10TA28 PO
--- NOTE | 2020-01-03 16:00 | ED Back Pain ---
General Chief Complaint: Back Problems Stated Complaint: NAUSEA,RT SHOULDER PAIN Nursing Triage Note: Pt is having right flank pain that radiates to her back and right shoulder. Pt has a kidney stone stuck and is getting it removed tomorrow morning by Dr. Pritchard. The pain is getting worse so they told her to come out here. Pt is very naustead. Nursing Sepsis Screen: No Definite Risk Source of Information: Patient Exam Limitations: No Limitations (LINO LYNNE STUDENT) History of Present Illness Date Seen by Provider: Jan 03, 2020 Time Seen by Provider: 15:45 Initial Comments Pattie Orozco was seen today due to nausea and R sided CVA pain that radiates to her R shoulder. She was diagnosed with kidney stones in [facility] last Thursday, saw Dr. Howell earlier today for workup and reports she has kidney stones on R and L, will have stent placed in R tomorrow and will have L stones broken up tomorrow morning. She is here today because she has been unable to have her tapentadol filled, and she has been unable to bear the pain. She vomited once last Thursday and had blood in her urine last week. Since she was last seen she has not had any recurrence of vomiting or blood in urine. Denies fever, chills, CP, SOB. Location: Other (R CVA) Timing/Duration: 1 Week Severity: Moderate Pain/Injury Location: Back Radiation: Other (R shoulder) Associated Symptoms: No fever (LINO LYNNE STUDENT) Allergies and Home Medications Allergies Coded Allergies: Sulfa (Sulfonamide Antibiotics) (Unverified Allergy, Unknown, 12/28/17) famotidine (Unverified Allergy, Unknown, dry heaves, 01/13/18) hydrocodone (Verified Allergy, Unknown, itching. Pt has received hydromorphone w/o issue, 12/29/17) NOTE: Patient has taken Percocet and Lortab as home meds as recent as 12/25/17 ketorolac (Unverified Allergy, Unknown, 01/13/18) ketorolac tromethamine (Verified Allergy, Unknown, 12/28/17) levofloxacin (Unverified Allergy, Unknown, 12/28/17) GIVES HER THRUSH nitrofurantoin (Unverified Allergy, Unknown, 12/28/17) ondansetron (Verified Allergy, Unknown, 12/28/17) tramadol (Unverified Allergy, Unknown, 12/28/17) codeine (Unverified Adverse Reaction, Unknown, 01/26/18) Uncoded Allergies: SULFA (Allergy, Unknown, 01/13/18) Home Medications Alprazolam 1 Mg Tablet, 2 MG PO HS, (Reported) TAKES 2 (1MG) TABLETS Amlodipine Besylate 2.5 Mg Tablet, 2.5 MG PO DAILY, (Reported) Cefdinir 300 Mg Capsule, 300 MG PO BID Prescribed by: ZOFIA MORA on 01/01/202129 Gabapentin 300 Mg Capsule, 300 MG PO BID, (Reported) Metoprolol Tartrate 50 Mg Tablet, 50 MG PO BID, (Reported) Quetiapine Fumarate 400 Mg Tablet, 400 MG PO HS, (Reported) Ropinirole HCl 0.25 Mg Tablet, 0.25 MG PO HS, (Reported) Rosuvastatin Calcium 10 Mg Tablet, 10 MG PO DAILY, (Reported) Tamsulosin HCl 0.4 Mg Cap, 0.4 MG PO DAILY Prescribed by: ZOFIA MORA on 01/01/202129 Trazodone HCl 150 Mg Tablet, 300 MG PO HS, (Reported) Patient Home Medication List Home Medication List Reviewed: Yes (ERICK RAMOS) Review of Systems Constitutional: chills; No fever EENTM: No nose congestion, No throat pain Respiratory: No cough; short of breath (due to CVA pain) Cardiovascular: No chest pain, No edema, No palpitations Gastrointestinal: No abdominal pain, No constipation, No diarrhea; nausea; No vomiting Genitourinary: No frequency, No hematuria, No hesitancy Musculoskeletal: back pain (R CVA) (LINO LYNNE MED STUDENT) All Other Systems Reviewed Negative Unless Noted: Yes (ERICK RAMOS) Past Dskkxxz-Pudnyp-Tmyvcp Hx Patient Social History Alcohol Use: Denies Use Recreational Drug Use: No (UNKNOWN) 2nd Hand Smoke Exposure: No Recent Foreign Travel: No Contact w/Someone Who Travel: No Recent Infectious Disease Expo: No Recent Hopitalizations: No (LINO LYNNE MED STUDENT) Alcohol Use: Denies Use Recreational Drug Use: No (ERICK RAMOS) Immunizations Up To Date Tetanus Booster (TDap): Unknown PED Vaccines UTD: No Date of Pneumonia Vaccine: Mar 01, 2013 Date of Influenza Vaccine: Mar 16, 2017 (LINO LYNNE STUDENT) Seasonal Allergies Seasonal Allergies: Yes (MILD) (LINO LYNNE STUDENT) Past Medical History Surgeries: Yes (breast reduction;several cysto's with UD;lap gaby;LITHOTRIPSY/KIDNEY ST) Abdominal, Appendectomy, Bladder Surgery, Breast, Gallbladder, Hysterectomy, Oophorectomy, Renal, Tonsillectomy, Tubal Ligation Respiratory: Yes (MILD ASTHMA RELATED TO SEASONAL ALLERGIES) Asthma, Pneumonia, Chronic Bronchitis, Sleep Apnea Currently Using CPAP: Yes (DOESNT USE ALL THE TIME) Currently Using BIPAP: No Cardiac: Yes (TACHYCARDIA) High Cholesterol, Hypertension, Irregular Heartbeat Neurological: Yes (LAST SEIZURE 07/2017) Headaches /Migraines, Seizure Disorder Reproductive Disorders: Yes 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 Problems, 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, 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 Sexually Transmitted Disease: No HIV/AIDS: No Genitourinary: Yes (INCONTINENCE;LITHOTRIPSY/KIDNEY STONE REMOVAL) Bladder Infection, Kidney Stones, Renal Failure, UTI-Chronic Gastrointestinal: Yes (S/P HIATAL HERNIA REPAIR) Gastroesophageal Reflux, Pancreatitis, Chronic Diarrhea, Hiatal Hernia, Irritable Bowel Musculoskeletal: Yes Fibromyalgia, Chronic Back Pain Endocrine: No HEENT: No Loss of Vision: Bilateral Hearing Impairment: Denies Cancer: Yes Vaginal Did You Recieve Any Treatments: Yes What Type of Treatment Did You: Surgical Intervention Psychosocial: Yes (EXTENSIVE PSYCH ISSUES) Anxiety, Depression Integumentary: No Blood Disorders: No Adverse Reaction/Blood Tranf: No (HAS HAD BLOOD WITH NO REACTION) (LINO LYNNE STUDENT) Family Medical History Dementia 19 FATHER Family history: Cardiovascular disease 19 FATHER Family history: Diabetes mellitus G8 SISTER Family history: Hypertension 19 FATHER 19 MOTHER History of - respiratory disease 19 MOTHER Seizure disorder G8 SISTER No Family History of: Abdominal aortic aneurysm Jatinder's disease Alcoholism Aphasia Cancer Cancer of colon Cataract Chest pain Congenital heart disease Congestive heart failure Cystic fibrosis Family history: Osteoporosis Family history: Thyroid disorder Headache Hearing loss Heart disease Hereditary disease History of - anemia History of - disorder History of drug abuse Human immunodeficiency virus (HIV) seropositivity Hypercholesterolemia Infertile Kidney disease Malignant neoplasm of lung Myocardial infarction Parkinson's disease Prostate cancer Psychotic disorder Stroke Tuberculosis Visual impairment Heart Disease, Diabetes, Hypertension, Lung Disease, Seizures PSH: -CHOLECYSTECTOMY -APPENDECTOMY -LAP GABY FUNDOPLICATION -BILATERAL TUBAL LIGATION -LAPAROSCOPIES FOR OVARIAN CYSTS -HYSTERECTOMY/BILATERAL SALPINGO-OOPHORECTOMY -CYSTOSCOPIES AND URETHRAL DILATIONS -LITHOTRIPSY -CYSTOSCOPY WITH KIDNEY STONE REMOVAL -TONSILLECTOMY/ADENOIDECTOMY -BREAST REDUCTION (LINO LYNNE STUDENT) Physical Exam Vital Signs Vital Signs - First Documented 01/03/20 15:29 Temp 36.6 Pulse 77 Resp 20 B/P (MAP) 161/104 (123) Pulse Ox 94 O2 Delivery Room Air (ERICK RAMOS) Vital Signs Capillary Refill : Less Than 3 Seconds (LINO LYNNE STUDENT) Height, Weight, BMI Height: 5'1.00" Weight: 162lbs. 0.0oz. 73.952777hb; 27.62 BMI Method:Stated General Appearance: Anxious, Mild Distress, Obese Neck: Full Range of Motion, Normal Inspection, Non Tender, Supple Cardiovascular: Regular Rate, Rhythm, No Edema, No Gallop, No Murmur, Normal Peripheral Pulses Respiratory: Lungs Clear, Normal Breath Sounds, No Accessory Muscle Use, No Respiratory Distress Back: CVA Tenderness (R) Extremity: Non Tender, No Pedal Edema Neurologic/Psychiatric: Alert, Oriented x3, Normal Mood/Affect Skin: Normal Color, Warm/Dry (LINO LYNNE STUDENT) Gastrointestinal: Normal Bowel Sounds, No Organomegaly, Non Tender, Soft (ERICK RAMOS) Progress/Results/Core Measures Results/Orders My Orders Orders - ERICK RAMOS Fentanyl Injection (Sublimaze Injection (01/03/20 16:15) Promethazine Injection (Phenergan Injec (01/03/20 16:15) Naproxen Tablet (Naprosyn Tablet) (01/03/20 16:15) (ERICK RAMOS) Medications Given in ED Current Medications Medications Dose Ordered Sig/Tk Route Start Time Stop Time Status Last Admin Dose Admin Fentanyl Citrate 75 mcg ONCE ONCE IM 01/03/20 16:15 01/03/20 16:16 01/03/20 16:09 75 MCG Promethazine HCl 25 mg ONCE ONCE IM 01/03/20 16:15 01/03/20 16:16 01/03/20 16:09 25 MG (ERICK RAMOS) Vital Signs/I&O 01/03/20 15:29 Temp 36.6 Pulse 77 Resp 20 B/P (MAP) 161/104 (123) Pulse Ox 94 O2 Delivery Room Air (ERICK RAMOS) Blood Pressure Mean: 123 Progress Progress Note : Time: 16:13 Progress Note We'll give her a one-time dose of some pain medicines and send her home with a sample pack of naproxen. Intramuscular Phenergan for nausea. I attest that I saw this patient alongside the medical student and agree with his documented history, physical exam and review of systems except as otherwise noted. (ERICK RAMOS) Departure Impression Primary Impression: Ureteral calculus Disposition: HOME, SELF-CARE Condition: Stable Departure-Patient Inst. Decision time for Depature: 16:14 (ERICK RAMOS) Referrals: SABIHA MAST MD (PCP/Family) Primary Care Physician Patient Instructions: Kidney Stones (DC) Add. Discharge Instructions: Naproxen 500 mg twice a day for pain. Tylenol 650 mg every 6 hours as necessary for pain. Keep your follow-up appointment tomorrow. All discharge instructions reviewed with patient and/or family. Voiced understanding. LINO LYNNE MED STUDENT Jan 03, 2020 16:00 ERICK RAMOS Jan 03, 2020 16:15
[2020-01-03] MEDS ORDERED: fentaNYL INJECTION 100 MCG/2 ML AMP IM ONE (16:15)
[2020-01-03] MEDS ORDERED: PROMETHAZINE INJ 25 MG/ML (PHENERGAN) AMP IM ONE (16:15)
[2020-01-03] MEDS ORDERED: NAPROXEN 250 MG (NAPROSYN) TABLET PO ONE (16:15)
[2020-01-03 16:24] VITALS: BP 148/100
--- OUTSIDE RECORDS SUMMARY | 2020-01-03 17:29 | XMS REPORT | Clinical Summary ---
Author Author [facility] Organization [facility] Address Unknown Phone Unavailable Care Team Providers Care Chief Ophthalmic Technician Name Role Phone Majo Young RN Unavailable Unavailable Areli Sanchez DO PCP Source Comments Some departments are not documenting in the electronic medical record. If you d o not see the information that you expected, contact Release of Information in [facility] [employer] Information Management department at [phone] for further assistan ce in locating additional records.[facility] Allergies Comments Active Allergy Reactions Severity Noted Date Levofloxacin UNKNOWN 12/09/2010 Sulfa (Sulfonamide UNKNOWN 12/09/2010 Antibiotics) Medications End Date Status Medication Sig Dispensed Refills Start Date Active trazodone (DESYREL) 50 mg Take 50 mg by 0 PO tablet mouth at bedtime daily. Active ropinirole (REQUIP) 0.25 Take 0.25 mg 0 mg PO tablet by mouth three times daily. Active gabapentin (NEURONTIN) Take 100 mg 0 100 mg PO capsule by mouth three times daily. Active CYCLOBENZAPRINE HCL Take by 0 (FLEXERIL PO) mouth. Active albuterol (VENTOLIN HFA, Inhale 2 8.5 g 0 0 PROAIR HFA) 90 Puffs by 1 mcg/Actuation IN inhaler mouth every 6 hours as needed for Wheezing. Active Problems Not on file Social History Date Tobacco Use Types Packs/Day Years Used Never Smoker Drinks/Week oz/Week Comments Alcohol Use No Sex Assigned at Date Recorded Not on file Industry Job Start Date Occupation Not on file Not on file Not on file Travel End Travel History Travel Start No recent travel history available. Last Filed Vital Signs Reading Time Taken Comments Vital Sign 131/92 12/09/2010 3:58 PM CDT Blood Pressure 131 12/09/2010 11:42 AM CDT Pulse 36.7 C (98.1 F) 12/09/2010 11:42 AM CDT Temperature - - Respiratory Rate 92% 12/09/2010 3:58 PM CDT Oxygen Saturation - - Inhaled Oxygen Concentration - - Weight - - Height - - Body Mass Index Plan of Treatment Health Maintenance Due Date Last Done Comments HIV SCREENING 1984 DTAP/TDAP VACCINES (1 - 1987 Tdap) HEPATITIS C SCREENING 1987 PHYSICAL (COMPREHENSIVE) 1987 EXAM CERVICAL CANCER SCREENING 1990 BREAST CANCER SCREENING 2009 COLORECTAL CANCER 2019 SCREENING SHINGLES RECOMBINANT 2019 VACCINE (1 of 2) INFLUENZA VACCINE 03/01/2020 Results Not on filefrom Last 3 Months
--- OUTSIDE RECORDS SUMMARY | 2020-01-03 17:45 | XMS REPORT ---
Author Author Pattie Moffett Doctor Organization [facility] Address Unknown Phone Unavailable Care Team Providers Care [facility] Programmer Name Role Phone Migration, Doctor Unavailable Unavailable PROBLEMS Type Condition ICD9-CM Code [id number] Code Onset Dates Condition S tatus SNOMED Code Problem FRANCIS (generalized anxiety disorder) F41.1 Active 36273593 Problem Thoracic disc herniation M51.24 Activ e 852595566 Problem Major depressive disorder in partial remission F32 .4 Active 21706431 Problem Seizure disorder G40.909 Active 128 045616 Problem Conversion disorder (or hysterical neurosis, conversion ty pe) F44.9 Active 96686855 Problem Constipation, unspecified constipation type K59.00 Active 18332869 Problem Mild episode of recurrent major depressive disorder F33.0 Active 254647798 Problem Restless leg syndrome G25.81 Active 57869528 Problem Nonadherence to medication Z91.14 Act vivian 790615256 Problem Slow transit constipation K59.01 Acti ve 31541562 Problem Atrophic vaginitis N95.2 Active 5 1239629 Problem Paroxysmal tachycardia I47.9 Active 47716095 Problem Other chronic pain G89.29 Active 8 4663067 Problem Mild intermittent asthma without complication J45. 20 Active 563399463 Problem Obesity (BMI 30.0-34.9) E66.9 Active [id number] Problem High blood pressure I10 Active 97625772 ALLERGIES No Information ENCOUNTERS Encounter Location Date Diagnosis [facility] [address] [facility] [id number] [place] [address] Nov, [facility] [address] [facility] [id number] [address] [place] [phone] Nov, [facility] [address] [facility] [id number] [address] [place] [address] Nov, [facility] [address] [facility] [facility] [address] [id number] [place] [id number] Oct, Breast cancer screening Z12.[address] [id number] [address] 08 Oct, 2019 Breast cancer screening Z12. 39 [facility] [address] [id number] [address] [place] [phone] Oct, [facility] [address] [id number] [address] [place] [phone] Oct, [facility] [address] [facility] [id number] [address] [place] [address] September, [facility] [address] [id number] [address] [place] [phone] September, [facility] [address] [facility] [id number] [address] [place] [address] September, Well woman exam with routine gynecological exam Z01.419 and Atrophic vaginitis N95.2 [facility] [address] [facility] [id number] [address] [place] [address] September, Major depressive disorder in partial remission F32.4 ; FRANCIS (generalized anxiety disorder) F41.1 ; Restless leg syndrome G25.81 and Nonadherence to medication Z91.14 [facility] [address] [facility] [id number] [address] [place] [address] September, [facility] [address] [id number] [address] [place] [phone] Aug, [facility] [address] [id number] [address] [place] [id number] Aug, Dental examination Z01.20 [facility] [address] [id number] [address] [place] [id number] Aug, Dental examination Z01.20 an d Caries K02.9 [facility] [address] [id number] [address] [place] [phone] Aug, [facility] [address] [id number] [address] [place] [phone] Aug, [facility] [address] [id number] [address] [place] [phone] Aug, Other chronic pain G89.29 an d Back muscle spasm M62.830 [facility] [address] [id number] [address] [place] [phone] 07 Aug, 2019 [facility] [address] [id number] [address] [place] [phone] Aug, Major depressive disorder in partial remission F32.4 ; FRANCIS (generalized anxiety disorder) F41.1 ; Restless leg syndrome G25.81 and Nonadherence to medication Z91.14 [facility] [address] [id number] [address] [place] [phone] Aug, [facility] [address] [id number] [address] [place] [phone] Jul, [facility] [address] [id number] [address] [place] [phone] Jul, [facility] [address] [id number] [address] [place] [phone] Jul, Major depressive disorder in partial remission F32.4 ; FRANCIS (generalized anxiety disorder) F41.1 ; Restless leg syndrome G25.81 and High blood pressure I10 [facility] [address] [id number] [address] [place] [phone] Jul, [facility] [address] [id number] [address] [place] [phone] Jul, [facility] [address] [id number] [address] [place] [phone] Jun, [facility] [address] [id number] [address] [place] [address] May, [facility] [address] [id number] [address] [place] [address] Apr, [facility] [address] [id number] [address] [place] [phone] Apr, [facility] [address] [id number] [address] [place] [phone] Mar, [facility] [address] [facility] [id number] [address] [place] [phone] Mar, Major depressive disorder in partial remission F32.4 ; FRANCIS (generalized anxiety disorder) F41.1 and Restless leg syndrome G25.81 [facility] [address] [id number] [address] [place] [phone] Mar, Obesity (BMI 30.0-34.9) E66. 9 [facility] [address] [id number] [address] [place] [phone] Jan, [facility] [address] [facility] [id number] [address] [place] [address] Jan, Burn T30.0 [facility] [address] [id number] [address] [place] [address] Dec, [facility] [address] [id number] [address] [place] [phone] Nov, [facility] [address] [facility] [id number] [address] [place] [phone] Nov, [facility] [address] [id number] [address] [place] [id number] Nov, Dental examination Z01.20 [facility] [address] [id number] [address] [place] [phone] September, [facility] [address] [id number] [address] [place] [id number] September, Decay, teeth K02.9 and Denta l examination Z01.20 [facility] [address] [id number] [address] [place] [phone] September, Dental examination Z01.20 [facility] [address] [id number] [address] [place] [phone] September, FRANCIS (generalized anxiety dis order) F41.1 ; Major depressive disorder in partial remission F32.4 and Restless leg syndrome G25.81 [facility] [address] [facility] [id number] [address] [place] [address] Aug, [facility] [address] [facility] [id number] [address] [place] [phone] Jul, [facility] [address] [facility] [id number] [address] [place] [address] Jul, Encounter to discuss test re sults Z71.2 [place] [address] [facility] [id number] [address] [place] [phone] Jul, Pelvic pain R10.2 ; Screenin g for breast cancer Z12.31 and Obesity (BMI 30.0-34.9) E66.9 [place] [address] [facility] [id number] [address] [place] [phone] Jul, Mild intermittent asthma wit hout complication J45.20 [place] [address] [facility] [id number] [address] [place] [address] Jul, Major depressive disorder in partial remission F32.4 and FRANCIS (generalized anxiety disorder) F41.1 [place] [address] [facility] [id number] [address] [place] [phone] Jul, [facility] [address] [facility] [id number] [address] [place] [phone] Jun, [facility] [address] [facility] [id number] [address] [place] [phone] May, Major depressive disorder in partial remission F32.4 ; FRANCIS (generalized anxiety disorder) F41.1 and Restless leg syndrome G25.81 [facility] [address] [facility] [id number] [address] [place] [phone] Apr, [facility] [address] [facility] [id number] [address] [place] [phone] Mar, [facility] [address] [id number] [address] [place] [phone] 21 Jan, 2018 Pain in thoracic spine M54.6 and Other chronic pain G89.29 [facility] [address] [id number] [address] [place] [phone] 14 Jan, 2018 [facility] [address] [id number] [address] [place] [phone] 11 Jan, 2018 Mild episode of recurrent ma saray depressive disorder F33.0 ; FRANCIS (generalized anxiety disorder) F41.1 and Restless leg syndrome G25.81 [facility] [address] [id number] [address] [place] [phone] Dec, [facility] [address] [id number] [address] [place] [phone] Dec, Hospital discharge follow-up Z09 [facility] [address] [id number] [address] [place] [phone] Nov, [facility] [address] [id number] [address] [place] [phone] Nov, [facility] [address] [id number] [address] [place] [phone] September, [facility] [address] [id number] [address] [place] [phone] September, [facility] [address] [id number] [address] [place] [phone] September, Major depressive disorder in partial remission F32.4 ; FRACNIS (generalized anxiety disorder) F41.1 and Restless leg syndrome G25.81 [facility] [address] [id number] [address] [place] [phone] September, [facility] [address] [id number] [address] [place] [phone] Jul, [facility] [address] [id number] [address] [place] [address] 02 Mar, 2018 Dorsalgia, unspecified M54.9 [facility] [address] [id number] [address] [place] [phone] Jul, Mild episode of recurrent ma saray depressive disorder F33.0 and FRANCIS (generalized anxiety disorder) F41.1 [facility] [address] [id number] [address] [place] [address] May, [facility] [address] [id number] [address] [place] [phone] May, Dysuria R30.0 and Acute cyst itis with hematuria N30.01 [place] [address] [id number] [address] [place] [address] Apr, [facility] [address] [id number] [address] [place] [phone] Apr, Major depressive disorder in partial remission F32.4 and FRANCIS (generalized anxiety disorder) F41.1 [place] [address] [id number] [address] [place] [address] Mar, Paroxysmal tachycardia I47.9 [place] [address] [id number] [address] [place] [address] Mar, Paroxysmal tachycardia I47.9 and Pain of left lower extremity M79.605 [facility] [address] [id number] [address] [place] [phone] Mar, FRANCIS (generalized anxiety dis order) F41.1 and Major depressive disorder in partial remission F32.4 [facility] [address] [id number] [address] [place] [phone] Jan, [facility] [address] [id number] [address] [place] [phone] 14 Jan, 2017 [facility] [address] [id number] [address] [place] [phone] Jan, [facility] [address] [id number] [address] [place] [phone] Dec, Constipation, unspecified co nstipation type K59.00 [facility] [address] [id number] [address] [place] [address] Dec, [facility] [address] [id number] [address] [place] [phone] Nov, [facility] [address] [id number] [address] [place] [phone] Nov, Major depressive disorder in partial remission F32.4 and FRANCIS (generalized anxiety disorder) F41.1 [facility] [address] [id number] [address] [place] [phone] Oct, Abdominal pain R10.9 and Slo w transit constipation K59.01 [place] [address] [id number] [address] [place] [address] Aug, Major depressive disorder in partial remission F32.4 ; FRANCIS (generalized anxiety disorder) F41.1 ; Conversion disorder (or hysterical neurosis, conversion type) F44.9 ; Dorsalgia, unspecified M54.9 and Long-term use of high-risk medication Z79.899 [place] [address] [id number] [address] [place] [phone] Aug, [place] [address] [id number] [address] [place] [address] Jul, Paroxysmal tachycardia I47.9 [facility] [address] [id number] [address] [place] [address] Jul, Paroxysmal tachycardia I47.9 [place] [address] [id number] [address] [place] [address] Jun, [facility] [address] [facility] [id number] [address] [place] [address] Jun, Major depressive disorder in partial remission F32.4 ; FRANCIS (generalized anxiety disorder) F41.1 and Conversion disorder (or hysterical neurosis, conversion type) F44.9 [facility] [address] [facility] [id number] [address] [place] [address] May, Pelvic pain R10.2 [facility] [address] [facility] [id number] [address] [place] [address] 30 Apr, 2016 Gastroenteritis K52.9 [facility] [address] [facility] [id number] [address] [place] [phone] 17 Apr, 2016 Blood in urine R31.[address] cystitis with hematuria N30.01 [facility] [address] [place] [id number] [place] [address] 17 Apr, 2016 Major depressive disorder in partial remission F32.4 ; FRANCIS (generalized anxiety disorder) F41.1 and Conversion disorder (or hysterical neurosis, conversion type) F44.9 [place] [address] [place] [id number] [place] [address] Apr, [place] [address] [address] Apr, Abnormal mammogram R92.8 [place] [address] [place] [id number] [place] [address] Mar, [place] [address] [place] [id number] [place] [address] Mar, Gastroenteritis K52.9 and Se izure disorder G40.909 [place] [address] [place] [id number] [address] [place] [address] Dec, [facility] [address] [place] [id number] [address] [place] [address] Dec, Other headache syndrome G44. 89 [place] [address] [place] [id number] [address] [place] [phone] Dec, [facility] [address] [facility] [id number] [address] [place] [address] Dec, Thoracic disc herniation M51 .24 [place] [address] [place] [id number] [address] [place] [phone] Dec, [facility] [address] [id number] [address] [place] [phone] Nov, Major depressive disorder in partial remission F32.4 and FRANCIS (generalized anxiety disorder) F41.1 [facility] [address] [id number] [address] [place] [address] Nov, [facility] [address] [id number] [address] [place] [address] Nov, Dorsalgia, unspecified M54.9 [facility] [address] [id number] [address] [place] [phone] Oct, [facility] [address] [id number] [address] [place] [phone] September, [facility] [address] [id number] [address] [place] [phone] Aug, [facility] [address] [id number] [address] [place] [phone] Aug, Major depressive disorder in partial remission F32.4 and FRANCIS (generalized anxiety disorder) F41.1 [facility] [address] [id number] [address] [place] [phone] Aug, [facility] [address] [id number] [address] [place] [phone] Jul, Abnormal mammogram R92.8 [facility] [address] [id number] [address] [place] [address] Jul, [facility] [address] [id number] [address] [place] [address] Jul, [facility] [address] [id number] [address] [place] [phone] 14 Jul, 2015 [facility] [address] [id number] [address] [place] [phone] Jul, [facility] [address] [id number] [address] [place] [phone] Jul, [facility] [address] [id number] [address] [place] [address] Jul, [facility] [address] [facility] [id number] [address] [place] [phone] Jun, Major depressive disorder in partial remission F32.4 and FRANCIS (generalized anxiety disorder) F41.1 [facility] [address] [id number] [address] [place] [phone] Jun, [facility] [address] [id number] [address] [place] [address] May, [facility] [address] [id number] [address] [place] [phone] Apr, [facility] [address] [facility] [id number] [address] [place] [phone] Mar, Major depressive disorder, r ecurrent episode, moderate F33.1 ; PTSD (post-traumatic stress disorder) F43.10 and FRANCIS (generalized anxiety disorder) F41.1 [facility] [address] [id number] [address] [place] [address] Mar, [facility] [address] [id number] [address] [place] [phone] Mar, [facility] [address] [id number] [address] [place] [phone] Mar, [facility] [address] [id number] [address] [place] [phone] Mar, [facility] [address] [id number] [address] [place] [phone] Jan, [facility] [address] [id number] [address] [place] [phone] Jan, [facility] [address] [id number] [address] [place] [address] Jan, [facility] [address] [id number] [address] [place] [phone] 14 Jan, 2015 Thoracic disc herniation 722 .11 [facility] [address] [id number] [address] [place] [phone] Dec, [facility] [address] [id number] [address] [place] [address] Dec, [facility] [address] [id number] [address] [place] [phone] Dec, [facility] [address] [id number] [address] [place] [phone] Nov, [facility] [address] [id number] [address] [place] [phone] Nov, Generalized anxiety disorder 300.02 ; Posttraumatic stress disorder 309.81 and Major depressive disorder, recurrent episode, moderate 296.32 [facility] [address] [id number] [address] [place] [phone] Nov, [facility] [address] [id number] [address] [place] [phone] Nov, [facility] [address] [id number] [address] [place] [phone] Oct, [facility] [address] [id number] [address] [place] [phone] 05 Oct, 2014 [facility] [address] [id number] [address] [place] [phone] Oct, [facility] [address] [id number] [address] [place] [phone] September, [facility] [address] [id number] [address] [place] [id number] September, [facility] [address] [facility] [id number] [address] [place] [phone] Aug, [facility] [address] [id number] [address] [place] [phone] Aug, [facility] [address] [id number] [address] [place] [address], [place] [id number] Jul, [facility] [address] [id number] [address] [place] [address], [place] [address] Jul, [facility] [address] [id number] [address] [place] [address], [place] [id number] 17 Jul, 2014 [facility] [address] [id number] [address] [place] [address], [place] [id number] 17 Jul, 2014 [facility] [address] [id number] [address] [place] [address], [place] [id number] 16 Jul, 2014 [facility] [address] [id number] [address] [place] [address], [place] [address] Jul, [facility] [address] [id number] [address] [place] [address], [place] [address] Jul, [facility] [address] [id number] [address] [place] [address], [place] [address] Jul, [facility] [address] [id number] [address] [place] [address], [place] [address] Jul, [facility] [address] [id number] [address] [place] [address], [place] [address] Jul, [facility] [address] [id number] [address] [place] [address], [place] [address] Jun, [facility] [address] [id number] [address] [place] [phone] Jun, [facility] [address] [id number] [address] [place] [address], [place] [address] Jun, [facility] [address] [id number] [address] [place] [address], [place] [address] May, [facility] [address] [id number] [address] [place] [address], [place] [address] Apr, [facility] [address] [id number] [address] [place] [address], [place] [address] Apr, [facility] [address] [id number] [address] [place] [address], [place] [address] Apr, [facility] [address] [id number] [address] [place] [address], [place] [address] Apr, [facility] [address] [id number] [address] [place] [address], [place] [address] Apr, [facility] [address] [id number] [address] [place] [address], [place] [address] Apr, [facility] [address] [id number] [address] [place] [address], [place] [address] Apr, [facility] [address] [id number] [address] [place] [address], [place] [address] Apr, [facility] [address] [id number] [address] [place] [address], [place] [address] Mar, [facility] [address] [id number] [address] [place] [address], [place] [address] Mar, [facility] [address] [id number] [address] [place] [address], [place] [address] Mar, [facility] [address] [id number] [address] [place] [address], [place] [address] Mar, [facility] [address] [id number] [address] [place] [address], [place] [address] Mar, [facility] [address] [id number] [address] [place] [address], [place] [address] Mar, [facility] [address] [id number] [address] [place] [address], [place] [address] Mar, [facility] [address] [id number] [address] [place] [address], [place] [address] Mar, [facility] [address] [id number] [address] [place] [address], [place] [address] Mar, [facility] [address] [id number] [address] [place] [address], [place] [address] Mar, 2013 [facility] [address] [id number] [address] [place] [address], [place] [address] 17 Mar, 2014 [facility] [address] [id number] [address] [place] [address], [place] [address] 14 Mar, 2014 [facility] [address] [id number] [address] [place] [address], [place] [address] 14 Mar, 2014 [facility] [address] [id number] [address] [place] [address], [place] [address] 07 Mar, 2014 [facility] [address] [id number] [address] [place] [address], [place] [address] 07 Mar, 2014 [facility] [address] [id number] [address] [place] [address], [place] [address] Mar, [facility] [address] [id number] [address] [place] [address], [place] [address] Mar, [facility] [address] [id number] [address] [place] [address], [place] [address] 19 Jan, 2013 [facility] [address] [id number] [address] [place] [address], [place] [address] 19 Jan, 2013 [facility] [address] [id number] [address] [place] [address], [place] [address] 09 Sep, 2013 [facility] [address] [id number] [address] [place] [address], [place] [address] 09 Sep, 2013 [facility] [address] [id number] [address] [place] [address], [place] [address] 05 Sep, 2013 [facility] [address] [id number] [address] [place] [address], [place] [address] 05 Sep, 2013 [facility] [address] [id number] [address] [place] [address], [place] [address] 05 Sep, 2013 [facility] [address] [id number] [address] [place] [address], [place] [address] 05 Jan, 2013 [facility] [address] [id number] [address] [place] [address], [place] [address] Jan, 2013 [facility] [address] [id number] [address] [place] [address], [place] [address] Jan, [facility] [address] [id number] [address] [place] [address], [place] [address] Jan, 2013 [facility] [address] [id number] [address] [place] [address], [place] [address] Jan, 2013 [facility] [address] [id number] [address] [place] [address], [place] [address] Jan, [facility] [address] [id number] [address] [place] [address], [place] [address] Dec, [facility] [address] [id number] [address] [place] [address], [place] [address] Dec, [facility] [address] [id number] [address] [place] [address], [place] [address] Dec, [facility] [address] [id number] [address] [place] [address], [place] [address] Dec, [facility] [address] [id number] [address] [place] [address], [place] [address] Dec, [facility] [address] [id number] [address] [place] [address], [place] [address] Dec, [facility] [address] [place] [id number] Dec, [facility] [address] [place] [id number] Dec, [facility] [address] [id number] [address] [place] [address], [place] [address] Dec, [facility] [address] [id number] [address] [place] [address], [place] [address] Dec, [facility] [address] [id number] [address] [place] [address], [place] [address] Dec, [facility] [address] [id number] [facility] [place] [address] Dec, [facility] [address] [id number] [facility] [place] [address] Nov, [facility] [address] [id number] [facility] [place] [address] Nov, [facility] [address] [id number] [address] [place] [address], [place] [address] Nov, [facility] [address] [id number] [facility] [place] [address] Nov, [facility] [address] [id number] [address] [place] [address], [place] [address] Nov, [facility] [address] [id number] [address] [place] [address], [place] [address] Nov, [facility] [address] [id number] [address] [place] [address], [place] [address] Nov, [facility] [address] [id number] [address] [place] [address], [place] [address] Nov, [facility] [address] [id number] [address] [place] [address], [place] [address] Nov, [facility] [address] [id number] [address] [place] [address], [place] [address] Nov, [facility] [address] [id number] [address] [place] [address], [place] [address] Nov, [facility] [address] [id number] [address] [place] [address], [place] [address] Nov, [facility] [address] [id number] [address] [place] [address], [place] [address] Nov, [facility] [address] [id number] [address] [place] [address], [place] [address] Oct, [facility] [address] [id number] [facility] [place] [address] Oct, [facility] [address] [id number] [address] [place] [address], [place] [address] Oct, [facility] [address] [id number] [address] [place] [address], [place] [address] Oct, [facility] [address] [id number] [address] [place] [address], [place] [address] Oct, [facility] [address] [id number] [address] [place] [address], [place] [address] Oct, [facility] [address] [id number] [address] [place] [address], [place] [address] Oct, [facility] [address] [id number] [address] [place] [address], [place] [address] Oct, [facility] [address] [id number] [address] [place] [address], [place] [address] Oct, [facility] [address] [id number] [address] [place] [address], [place] [address] Oct, [facility] [address] [id number] [address] [place] [address], [place] [address] Oct, [facility] [address] [id number] [address] [place] [address], [place] [address] Oct, [facility] [address] [id number] [address] [place] [address], [place] [address] September, [facility] [address] [id number] [address] [place] [address], [place] [address] September, [facility] [address] [id number] [address] [place] [address], [place] [address] September, [facility] [address] [id number] [address] [place] [address], [place] [address] September, [facility] [address] [id number] [address] [place] [address], [place] [address] Aug, [facility] [address] [id number] [facility] [place] [address] Aug, [facility] [address] [id number] [facility] [place] [address] Aug, [facility] [address] [id number] [facility] [place] [address] Aug, [facility] [address] [id number] [address] [place] [address], [place] [address] Aug, [facility] [address] [id number] [facility] [place] [address] Aug, [facility] [address] [id number] [address] [place] [address], [place] [address] Aug, [facility] [address] [id number] [address] [place] [address], [place] [address] Jul, [facility] [address] [id number] [address] [place] [address], [place] [address] Jul, [facility] [address] [id number] [address] [place] [address], [place] [address] Jul, [facility] [address] [id number] [address] [place] [address], [place] [address] Jul, [facility] [address] [id number] [address] [place] [address], [place] [address] Jul, [facility] [address] [id number] [address] [place] [address], [place] [address] Jul, [facility] [address] [id number] [address] [place] [address], [place] [address] 18 Jul, 2013 [facility] [address] [id number] [address] [place] [address], [place] [address] Jul, [facility] [address] [id number] [address] [place] [address], [place] [address] 18 Jul, 2013 [facility] [address] [id number] [address] [place] [address], [place] [address] 18 Jul, 2013 [facility] [address] [id number] [address] [place] [address], [place] [address] 18 Jul, 2013 [facility] [address] [id number] [address] [place] [address], [place] [address] 18 Jul, 2013 [facility] [address] [id number] [address] [place] [address], [place] [address] 14 Jul, 2013 [facility] [address] [id number] [address] [place] [address], [place] [address] 14 Jul, 2013 [facility] [address] [id number] [address] [place] [address], [place] [address] Jul, [facility] [address] [id number] [address] [place] [address], [place] [address] 11 Jul, 2013 [facility] [address] [id number] [address] [place] [address], [place] [address] Jul, [facility] [address] [id number] [address] [place] [address], [place] [address] 11 Jul, 2013 [facility] [address] [id number] [address] [place] [address], [place] [address] Jun, [facility] [address] [id number] [address] [place] [address], [place] [address] 31 Jun, 2013 [facility] [address] [id number] [address] [place] [address], [place] [address] Jun, [facility] [address] [id number] [address] [place] [address], [place] [address] 15 Jun, 2013 [facility] [address] [id number] [address] [place] [address], [place] [address] 14 Jun, 2013 [facility] [address] [id number] [address] [place] [address], [place] [address] 14 Jun, 2013 [facility] [address] [id number] [address] [place] [address], [place] [address] 14 Jun, 2013 [facility] [address] [id number] [address] [place] [address], [place] [address] 14 Jun, 2013 [facility] [address] [id number] [address] [place] [address], [place] [address] 14 Jun, 2013 [facility] [address] [id number] [address] [place] [address], [place] [address] 14 Jun, 2013 [facility] [address] [id number] [address] [place] [address], [place] [address] 27 May, 2013 [facility] [address] [id number] [address] [place] [address], [place] [address] 27 May, 2013 [facility] [address] [id number] [address] [place] [address], [place] [address] 26 May, 2013 [facility] [address] [id number] [address] [place] [address], [place] [address] 19 May, 2013 [facility] [address] [id number] [address] [place] [address], [place] [address] 19 May, 2013 [facility] [address] [id number] [address] [place] [address], [place] [address] 16 May, 2013 [facility] [address] [id number] [address] [place] [address], [place] [address] 16 May, 2013 [facility] [address] [id number] [address] [place] [address], [place] [address] 16 May, 2013 [facility] [address] [id number] [address] [place] [address], [place] [address] 16 May, 2013 [facility] [address] [id number] [address] [place] [address], [place] [address] 13 May, 2013 [facility] [address] [id number] [address] [place] [address], [place] [address] 13 May, 2013 [facility] [address] [id number] [address] [place] [address], [place] [address] 11 May, 2013 [facility] [address] [id number] [address] [place] [address] Apr, [facility] [address] [id number] [address] [place] [address], [place] [address] Apr, [facility] [address] [id number] [address] [place] [address] 18 Apr, 2013 [facility] [address] [id number] [address] [place] [address], [place] [address] Apr, [facility] [address] [id number] [address] [place] [address] 13 Apr, 2013 [facility] [address] [id number] [address] [place] [address], [place] [address] 08 Apr, 2013 [facility] [address] [id number] [address] [place] [address] 08 Apr, 2013 [facility] [address] [id number] [address] [place] [address] Apr, [facility] [address] [id number] [address] [place] [address] Apr, [facility] [address] [id number] [address] [place] [address] Apr, [facility] [address] [id number] [address] [place] [address] Apr, [facility] [address] [id number] [address] [place] [address] Mar, [facility] [address] [id number] [address] [place] [address] Mar, [facility] [address] [id number] [address] [place] [address] Mar, [facility] [address] [id number] [address] [place] [address] Mar, [facility] [address] [id number] [address] [place] [address], [place] [address] Mar, [facility] [address] [id number] [address] [place] [address], [place] [address] Mar, [facility] [address] [id number] [address] [place] [address], [place] [address] Mar, [facility] [address] [id number] [address] [place] [address], [place] [address] Mar, [facility] [address] [id number] [address] [place] [address], [place] [address] Mar, [facility] [address] [id number] [address] [place] [address], [place] [address] Mar, [facility] [address] [id number] [address] [place] [address], [place] [address] Mar, [facility] [address] [id number] [address] [place] [address], [place] [address] Mar, [facility] [address] [id number] [address] [place] [address], [place] [address] 30 Jan, 2013 [facility] [address] [id number] [address] [place] [address], [place] [address] Jan, [facility] [address] [id number] [address] [place] [address], [place] [address] Jan, [facility] [address] [id number] [address] [place] [address], [place] [address] Jan, [facility] [address] [id number] [address] [place] [address], [place] [address] Dec, [facility] [address] [id number] [address] [place] [address], [place] [address] Dec, [facility] [address] [id number] [address] [place] [address], [place] [address] Dec, [facility] [address] [id number] [address] [place] [address], [place] [address] Dec, [facility] [address] [id number] [address] [place] [address], [place] [address] Dec, [facility] [address] [id number] [address] [place] [address], [place] [address] Dec, [facility] [address] [id number] [address] [place] [address], [place] [address] Dec, [facility] [address] [id number] [address] [place] [address], [place] [address] Dec, [facility] [address] [id number] [address] [place] [address], [place] [address] Dec, [facility] [address] [id number] [address] [place] [address], [place] [address] Nov, [facility] [address] [id number] [address] [place] [address], [place] [address] Nov, [facility] [address] [id number] [address] [place] [address], [place] [address] Nov, [facility] [address] [id number] [address] [place] [address], [place] [address] Nov, [facility] [address] [id number] [address] [place] [address], [place] [address] Nov, [facility] [address] [id number] [address] [place] [address], [place] [address] Nov, [facility] [address] [id number] [address] [place] [address], [place] [address] Nov, [facility] [address] [id number] [address] [place] [address], [place] [address] Nov, [facility] [address] [id number] [address] [place] [address], [place] [address] Oct, [facility] [address] [id number] [address] [place] [address], [place] [address] Oct, [facility] [address] [id number] [address] [place] [address], [place] [address] Oct, [facility] [address] [id number] [address] [place] [address], [place] [address] Oct, [facility] [address] [id number] [address] [place] [address], [place] [address] Oct, [facility] [address] [id number] [address] [place] [address], [place] [address] Oct, [facility] [address] [id number] [address] [place] [address], [place] [address] Oct, [facility] [address] [id number] [address] [place] [address], [place] [address] Oct, [facility] [address] [id number] [address] [place] [address], [place] [address] Oct, [facility] [address] [id number] [address] [place] [address], [place] [address] 18 Oct, 2012 [facility] [address] [id number] [address] [place] [address], [place] [address] 17 Oct, 2012 [facility] [address] [id number] [address] [place] [address], [place] [address] 14 Oct, 2012 [facility] [address] [id number] [address] [place] [address], [place] [address] 07 Oct, 2012 [facility] [address] [id number] [address] [place] [address], [place] [address] 30 Sep, 2012 [facility] [address] [id number] [address] [place] [address], [place] [address] September, [facility] [address] [id number] [address] [place] [address], [place] [address] September, [facility] [address] [id number] [address] [place] [address], [place] [address] Aug, [facility] [address] [id number] [address] [place] [address], [place] [address] 24 Aug, 2012 [facility] [address] [id number] [address] [place] [address], [place] [address] 18 Aug, 2012 [facility] [address] [id number] [address] [place] [address], [place] [address] 18 Aug, 2012 [facility] [address] [id number] [address] [place] [address], [place] [address] 18 Aug, 2012 [facility] [address] [id number] [address] [place] [address], [place] [address] 08 Aug, 2012 [facility] [address] [id number] [address] [place] [address], [place] [address] 05 Aug, 2012 [facility] [address] [id number] [address] [place] [address], [place] [address] Jul, [facility] [address] [id number] [address] [place] [address], [place] [address] Jul, [facility] [address] [id number] [address] [place] [address], [place] [address] Jul, [facility] [address] [id number] [address] [place] [address], [place] [address] Jul, [facility] [address] [id number] [address] [place] [address], [place] [address] Jul, [facility] [address] [id number] [address] [place] [address], [place] [address] Jul, [facility] [address] [id number] [address] [place] [address], [place] [address] Jul, [facility] [address] [id number] [address] [place] [address] Jul, [facility] [address] [id number] [address] [place] [address], [place] [address] Jul, [facility] [address] [id number] [address] [place] [address], [place] [address] Jul, [facility] [address] [id number] [address] [place] [address], [place] [address] Jul, [facility] [facility] [address] [id number] [address] [place] [address], [place] [address] 06 Jul, 2012 [facility] [address] [id number] [address] [place] [address], [place] [address] Jul, [facility] [address] [id number] [address] [place] [address], [place] [address] 24 Jun, 2012 [facility] [address] [id number] [address] [place] [address], [place] [address] Jun, [facility] [address] [id number] [address] [place] [address], [place] [address] Jun, [facility] [address] [id number] [address] [place] [address], [place] [address] 17 Jun, 2012 [facility] [address] [id number] [address] [place] [address], [place] [address] 15 Jun, 2012 [facility] [address] [id number] [address] [place] [address], [place] [address] Jun, [facility] [address] [id number] [address] [place] [address], [place] [address] Jun, [facility] [address] [id number] [address] [place] [address], [place] [address] May, [facility] [address] [id number] [address] [place] [address], [place] [address] May, [facility] [address] [id number] [address] [place] [address], [place] [address] May, [facility] [address] [id number] [address] [place] [address], [place] [address] May, [facility] [address] [id number] [address] [place] [address], [place] [address] May, [facility] [address] [id number] [address] [place] [address], [place] [address] 24 May, 2012 [facility] [address] [id number] [address] [place] [address], [place] [address] May, [facility] [address] [id number] [address] [place] [address], [place] [address] May, [facility] [address] [id number] [address] [place] [address], [place] [address] May, [facility] [address] [id number] [address] [place] [address], [place] [address] May, [facility] [address] [id number] [address] [place] [address], [place] [address] Apr, [facility] [address] [id number] [address] [place] [address], [place] [address] Apr, [facility] [address] [id number] [address] [place] [address], [place] [address] Apr, [facility] [address] [id number] [address] [place] [address], [place] [address] Apr, [facility] [address] [id number] [address] [place] [address], [place] [address] Apr, [facility] [address] [id number] [address] [place] [address], [place] [address] Apr, [facility] [address] [id number] [address] [place] [address], [place] [address] Apr, [facility] [address] [id number] [address] [place] [address], [place] [address] Apr, [facility] [address] [id number] [address] [place] [address], [place] [address] Apr, [facility] [address] [id number] [address] [place] [address], [place] [address] Apr, [facility] [address] [id number] [address] [place] [address], [place] [address] Apr, [facility] [address] [id number] [address] [place] [address], [place] [address] Apr, [facility] [address] [id number] [address] [place] [address], [place] [address] Mar, 2011 [facility] [address] [id number] [address] [place] [address], [place] [address] 31 Mar, 2011 [facility] [address] [id number] [address] [place] [address] Mar, 2011 [facility] [address] [id number] [address] [place] [address] Mar, 2011 [facility] [address] [id number] [address] [place] [address] Mar, 2011 [facility] [address] [id number] [address] [place] [address], [place] [address] Mar, 2011 [facility] [address] [id number] [address] [place] [address] Mar, 2011 [facility] [address] [id number] [address] [place] [address] Mar, 2011 [facility] [address] [id number] [address] [place] [address] Mar, 2011 [facility] [address] [id number] [address] [place] [address] Mar, 2011 [facility] [address] [id number] [address] [place] [address] Mar, 2011 [facility] [address] [id number] [address] [place] [address] Mar, 2011 [facility] [address] [id number] [address] [place] [address] Mar, 2011 [facility] [address] [id number] [address] [place] [address] Mar, [facility] [address] [id number] [address] [place] [address] Mar, [facility] [address] [id number] [address] [place] [address] Mar, [facility] [address] [id number] [facility] [place] [address] 25 Sep, 2011 [facility] [address] [id number] [address] [place] [address], [place] [address] 24 Sep, 2011 [facility] [address] [id number] [address] [place] [address], [place] [address] 22 Sep, 2011 [facility] [address] [id number] [address] [place] [address], [place] [address] 22 Sep, 2011 [facility] [address] [id number] [address] [place] [address], [place] [address] 21 Sep, 2011 [facility] [address] [id number] [address] [place] [address], [place] [address] 18 Sep, 2011 [facility] [address] [id number] [address] [place] [address], [place] [address] 14 Jan, 2011 [facility] [address] [id number] [address] [place] [address], [place] [address] 07 Jan, 2011 [facility] [address] [id number] [address] [place] [address], [place] [address] 15 Dec, 2011 [facility] [address] [id number] [address] [place] [address], [place] [address] 10 Dec, 2011 [facility] [address] [id number] [address] [place] [address], [place] [address] 09 Dec, 2011 [facility] [address] [id number] [address] [place] [address], [place] [address] 08 Dec, 2011 [facility] [address] [id number] [address] [place] [address], [place] [address] Dec, [facility] [address] [id number] [address] [place] [address], [place] [address] Dec, [facility] [address] [id number] [address] [place] [address], [place] [address] Dec, [facility] [address] [id number] [address] [place] [address], [place] [address] Nov, [facility] [address] [id number] [address] [place] [address], [place] [address] 06 Oct, 2011 [facility] [address] [id number] [address] [place] [address], [place] [address] 05 Aug, 2011 [facility] [address] [id number] [address] [place] [address], [place] [address] 22 Jul, 2011 [facility] [address] [id number] [address] [place] [address], [place] [address] 19 Jul, 2011 [facility] [address] [id number] [address] [place] [address], [place] [address] 16 Jul, 2011 [facility] [address] [id number] [address] [place] [address], [place] [address] 14 Jul, 2011 [facility] [address] [id number] [address] [place] [address], [place] [address] 07 Jul, 2011 [facility] [address] [id number] [address] [place] [address], [place] [address] Jul, [facility] [address] [id number] [address] [place] [address], [place] [address] Jul, [facility] [address] [id number] [address] [place] [address], [place] [address] 15 Jul, 2011 [facility] [address] [id number] [address] [place] [address], [place] [address] Jul, [facility] [address] [id number] [address] [place] [address], [place] [address] Jul, [facility] [address] [id number] [address] [place] [address], [place] [address] Jul, [facility] [address] [id number] [address] [place] [address], [place] [address] Jun, [facility] [address] [id number] [address] [place] [address], [place] [address] Jun, [facility] [address] [id number] [address] [place] [address], [place] [address] 13 Jun, 2011 [facility] [address] [id number] [address] [place] [address], [place] [address] 11 Jun, 2011 [facility] [address] [id number] [address] [place] [address], [place] [address] 06 Jun, 2011 [facility] [address] [id number] [address] [place] [address], [place] [address] Jun, [facility] [address] [id number] [address] [place] [address], [place] [address] Jun, [facility] [address] [id number] [address] [place] [address], [place] [address] May, [facility] [address] [id number] [address] [place] [address], [place] [address] May, [facility] [address] [id number] [address] [place] [address], [place] [address] May, [facility] [address] [id number] [address] [place] [address], [place] [address] May, [facility] [address] [id number] [address] [place] [address], [place] [address] May, [facility] [address] [id number] [address] [place] [address], [place] [address] May, [facility] [address] [id number] [address] [place] [address], [place] [address] May, [facility] [address] [id number] [address] [place] [address], [place] [address] May, [facility] [address] [id number] [address] [place] [address], [place] [address] 06 May, 2011 [facility] [address] [id number] [address] [place] [address], [place] [address] 03 May, 2011 [facility] [address] [id number] [address] [place] [address], [place] [address] 15 Apr, 2011 [facility] [address] [id number] [address] [place] [address] Apr, [facility] [address] [id number] [address] [place] [address] Apr, [facility] [address] [id number] [address] [place] [address] Apr, [facility] [address] [id number] [address] [place] [address] Mar, [facility] [address] [id number] [address] [place] [address] Mar, [facility] [address] [id number] [address] [place] [address] Mar, [facility] [address] [id number] [address] [place] [address] Mar, IMMUNIZATIONS No Known Immunizations SOCIAL HISTORY Never Assessed REASON FOR VISIT PLAN OF CARE VITAL SIGNS Height 61 in 2012-10-28 Weight 161 lbs 2012-10-28 Temperature 99 degrees Fahrenheit 2012-10-28 Heart Rate 104 bpm 2012-10-28 Respiratory Rate 22 2012-10-28 Blood pressure systolic 118 mmHg 2012-10-28 Blood pressure diastolic 86 mmHg 2012-10-28 MEDICATIONS Unknown Medications RESULTS No Results PROCEDURES No Known procedures INSTRUCTIONS MEDICATIONS ADMINISTERED No Known Medications MEDICAL (GENERAL) HISTORY Type Description Date Medical History fibromyalgia Medical History seizures Medical History anxiety Medical History Pseudo seizures Medical History tachycrdia Medical History HPV- Cancer Medical History IBS Surgical History cholecystectomy Surgical History tubal ligation Surgical History hysterectomy Surgical History tonsillectomy Surgical History carpal tunnel release Surgical History breast reduction Surgical History Bladder sling/stretch 06/2016 Surgical History utheral blockage 12/2017 Surgical History Colonoscopy Hospitalization History surgeries [facility] 03/24[facility]16 [facility] stones/hypertension 0 12/2017
--- OUTSIDE RECORDS SUMMARY | 2020-01-03 17:45 | XMS REPORT ---
Author Author Pattie Moffett Doctor Organization [facility] Address Unknown Phone Unavailable Care Team Providers Care Airveyor Operator Name Role Phone Migration, Doctor Unavailable Unavailable PROBLEMS Type Condition ICD9-CM Code RAX04-DI Code Onset Dates Condition S tatus SNOMED Code Problem FRANCIS (generalized anxiety disorder) F41.1 Active 57940132 Problem Thoracic disc herniation M51.24 Activ e 683724947 Problem Major depressive disorder in partial remission F32 .4 Active 69954499 Problem Seizure disorder G40.909 Active 128 281527 Problem Conversion disorder (or hysterical neurosis, conversion ty pe) F44.9 Active 41768646 Problem Constipation, unspecified constipation type K59.00 Active 83163299 Problem Mild episode of recurrent major depressive disorder F33.0 Active 193009072 Problem Restless leg syndrome G25.81 Active 14970632 Problem Nonadherence to medication Z91.14 Act vivian 732751324 Problem Slow transit constipation K59.01 Acti ve 47373411 Problem Atrophic vaginitis N95.2 Active 5 5534399 Problem Paroxysmal tachycardia I47.9 Active 08962802 Problem Other chronic pain G89.29 Active 8 7173324 Problem Mild intermittent asthma without complication J45. 20 Active 728588363 Problem Obesity (BMI 30.0-34.9) E66.9 Active [id number] Problem High blood pressure I10 Active 87079901 ALLERGIES No Information ENCOUNTERS Encounter Location Date Diagnosis [facility] [id number] [facility] [id number] [place] [address] Nov, [facility] [address] [facility] [id number] [address] [place] [phone] Nov, [facility] [address] [facility] [id number] [address] [place] [phone] Nov, [facility] [address] [id number] [place] [id number] Oct, Breast cancer screening Z12.[address] [id number] [address] 08 Oct, 2019 Breast cancer screening Z12. 39 [facility] [address] [id number] [address] [place] [phone] Oct, [facility] [address] [id number] [address] [place] [phone] Oct, [facility] [address] [facility] [id number] [address] [place] [phone] September, [facility] [address] [id number] [address] [place] [phone] September, [facility] [address] [facility] [id number] [address] [place] [address] September, Well woman exam with routine gynecological exam Z01.419 and Atrophic vaginitis N95.2 [facility] [address] [facility] [id number] [address] [place] [address] September, Major depressive disorder in partial remission F32.4 ; FRANCIS (generalized anxiety disorder) F41.1 ; Restless leg syndrome G25.81 and Nonadherence to medication Z91.14 [facility] [address] [facility] [id number] [address] [place] [address] September, [facility] [address] [id number] [address] [place] [phone] Aug, [facility] [address] [id number] [address] [place] [phone] Aug, Dental examination Z01.20 [facility] [address] [id number] [address] [place] [id number] Aug, Dental examination Z01.20 an d Caries K02.9 [facility] [address] [id number] [address] [place] [phone] Aug, [facility] [address] [id number] [address] [place] [phone] Aug, [facility] [address] [id number] [address] [place] [address] Aug, Other chronic pain G89.29 an d Back muscle spasm M62.830 [facility] [address] [id number] [address] [place] [phone] 07 Aug, 2019 [facility] [address] [id number] [address] [place] [address] Aug, Major depressive disorder in partial remission F32.4 ; FRANCIS (generalized anxiety disorder) F41.1 ; Restless leg syndrome G25.81 and Nonadherence to medication Z91.14 [facility] [address] [id number] [address] [place] [phone] Aug, [facility] [address] [id number] [address] [place] [phone] Jul, [facility] [address] [id number] [address] [place] [phone] Jul, [facility] [address] [id number] [address] [place] [phone] Jul, Major depressive disorder in partial remission F32.4 ; FRANCIS (generalized anxiety disorder) F41.1 ; Restless leg syndrome G25.81 and High blood pressure I10 [facility] [address] [id number] [address] [place] [phone] Jul, [facility] [address] [id number] [address] [place] [phone] Jul, [facility] [address] [id number] [address] [place] [phone] Jun, [facility] [address] [id number] [address] [place] [phone] May, [facility] [address] [id number] [address] [place] [phone] Apr, [facility] [address] [id number] [address] [place] [phone] Apr, [facility] [address] [id number] [address] [place] [phone] Mar, [facility] [address] [facility] [id number] [address] [place] [phone] Mar, Major depressive disorder in partial remission F32.4 ; FRANCIS (generalized anxiety disorder) F41.1 and Restless leg syndrome G25.81 [facility] [address] [id number] [address] [place] [phone] Mar, Obesity (BMI 30.0-34.9) E66. 9 [facility] [address] [id number] [address] [place] [id number] Jan, [facility] [address] [facility] [id number] [address] [place] [phone] Jan, Burn T30.0 [facility] [address] [id number] [address] [place] [phone] Dec, [facility] [address] [id number] [address] [place] [phone] Nov, [facility] [address] [facility] [id number] [address] [place] [phone] Nov, [facility] [address] [id number] [address] [place] [id number] Nov, Dental examination Z01.20 [facility] [address] [id number] [address] [place] [phone] September, [facility] [address] [id number] [address] [place] [id number] September, Decay, teeth K02.9 and Denta l examination Z01.20 [facility] [address] [id number] [address] [place] [address] [id number] September, Dental examination Z01.20 [facility] [address] [id number] [address] [place] [address] September, FRANCIS (generalized anxiety dis order) F41.1 ; Major depressive disorder in partial remission F32.4 and Restless leg syndrome G25.81 [facility] [address] [facility] [id number] [address] [place] [phone] Aug, [facility] [address] [facility] [id number] [address] [place] [phone] Jul, [facility] [address] [facility] [id number] [address] [place] [phone] Jul, Encounter to discuss test re sults Z71.2 [place] [address] [facility] [id number] [address] [place] [phone] Jul, Pelvic pain R10.2 ; Screenin g for breast cancer Z12.31 and Obesity (BMI 30.0-34.9) E66.9 [place] [address] [facility] [id number] [address] [place] [id number] Jul, Mild intermittent asthma wit hout complication J45.20 [place] [address] [facility] [id number] [address] [place] [phone] Jul, Major depressive disorder in partial remission F32.4 and FRANCIS (generalized anxiety disorder) F41.1 [place] [address] [facility] [id number] [address] [place] [phone] Jul, [facility] [address] [facility] [id number] [address] [place] [phone] Jun, [facility] [address] [facility] [id number] [address] [place] [phone] May, Major depressive disorder in partial remission F32.4 ; FRANCIS (generalized anxiety disorder) F41.1 and Restless leg syndrome G25.81 [facility] [address] [facility] [id number] [address] [place] [phone] Apr, [facility] [address] [facility] [id number] [address] [place] [phone] Mar, [facility] [address] [id number] [address] [place] [phone] 21 Jan, 2018 Pain in thoracic spine M54.6 and Other chronic pain G89.29 [facility] [address] [id number] [address] [place] [phone] 14 Jan, 2018 [facility] [address] [id number] [address] [place] [phone] 11 Jan, 2018 Mild episode of recurrent ma saray depressive disorder F33.0 ; FRANCIS (generalized anxiety disorder) F41.1 and Restless leg syndrome G25.81 [facility] [address] [id number] [address] [place] [phone] Dec, [facility] [address] [id number] [address] [place] [phone] Dec, Hospital discharge follow-up Z09 [facility] [address] [id number] [address] [place] [phone] Nov, [facility] [address] [id number] [address] [place] [phone] Nov, [facility] [address] [id number] [address] [place] [phone] September, [facility] [address] [id number] [address] [place] [phone] September, [facility] [address] [id number] [address] [place] [phone] September, Major depressive disorder in partial remission F32.4 ; FRANCIS (generalized anxiety disorder) F41.1 and Restless leg syndrome G25.81 [facility] [address] [id number] [address] [place] [phone] September, [facility] [address] [id number] [address] [place] [phone] Jul, [facility] [address] [id number] [address] [place] [phone] 02 Mar, 2018 Dorsalgia, unspecified M54.9 [facility] [address] [id number] [address] [place] [phone] Jul, Mild episode of recurrent ma saray depressive disorder F33.0 and FRANCIS (generalized anxiety disorder) F41.1 [facility] [address] [id number] [address] [place] [phone] May, [facility] [address] [id number] [address] [place] [phone] May, Dysuria R30.0 and Acute cyst itis with hematuria N30.01 [place] [address] [id number] [address] [place] [phone] Apr, [facility] [address] [id number] [address] [place] [phone] Apr, Major depressive disorder in partial remission F32.4 and FRANCIS (generalized anxiety disorder) F41.1 [place] [address] [id number] [address] [place] [phone] Mar, Paroxysmal tachycardia I47.9 [place] [address] [id number] [address] [place] [address] Mar, Paroxysmal tachycardia I47.9 and Pain of left lower extremity M79.605 [facility] [address] [id number] [address] [place] [address] Mar, FRANCIS (generalized anxiety dis order) F41.1 and Major depressive disorder in partial remission F32.4 [facility] [address] [id number] [address] [place] [phone] Jan, [facility] [address] [id number] [address] [place] [phone] 14 Jan, 2017 [facility] [address] [id number] [address] [place] [phone] Jan, [facility] [address] [id number] [address] [place] [phone] Dec, Constipation, unspecified co nstipation type K59.00 [facility] [address] [id number] [address] [place] [phone] Dec, [facility] [address] [id number] [address] [place] [phone] Nov, [facility] [address] [id number] [address] [place] [id number] Nov, Major depressive disorder in partial remission F32.4 and FRANCIS (generalized anxiety disorder) F41.1 [facility] [address] [id number] [address] [place] [phone] Oct, Abdominal pain R10.9 and Slo w transit constipation K59.01 [place] [address] [id number] [address] [place] [address] Aug, Major depressive disorder in partial remission F32.4 ; FRANCIS (generalized anxiety disorder) F41.1 ; Conversion disorder (or hysterical neurosis, conversion type) F44.9 ; Dorsalgia, unspecified M54.9 and Long-term use of high-risk medication Z79.899 [place] [address] [id number] [address] [place] [phone] Aug, [place] [address] [id number] [address] [place] [phone] Jul, Paroxysmal tachycardia I47.9 [facility] [address] [id number] [address] [place] [phone] Jul, Paroxysmal tachycardia I47.9 [place] [address] [id number] [address] [place] [phone] Jun, [facility] [address] [facility] [id number] [address] [place] [phone] Jun, Major depressive disorder in partial remission F32.4 ; FRANCIS (generalized anxiety disorder) F41.1 and Conversion disorder (or hysterical neurosis, conversion type) F44.9 [facility] [address] [facility] [id number] [address] [place] [phone] May, Pelvic pain R10.2 [facility] [address] [facility] [id number] [address] [place] [phone] 30 Apr, 2016 Gastroenteritis K52.9 [facility] [address] [facility] [id number] [address] [place] [id number] 17 Apr, 2016 Blood in urine R31.9 and Acu te cystitis with hematuria N30.01 [facility] [address] [place] [id number] [place] [phone] 17 Apr, 2016 Major depressive disorder in partial remission F32.4 ; FRANCIS (generalized anxiety disorder) F41.1 and Conversion disorder (or hysterical neurosis, conversion type) F44.9 [place] [address] [place] [id number] [place] [address] Apr, [place] [address] [phone] Apr, Abnormal mammogram R92.8 [place] [address] [place] [id number] [place] [address] Mar, [place] [address] [place] [id number] [place] [address] Mar, Gastroenteritis K52.9 and Se izure disorder G40.909 [place] [address] [place] [id number] [address] [place] [phone] Dec, [facility] [address] [place] [id number] [address] [place] [phone] Dec, Other headache syndrome G44. 89 [place] [address] [place] [id number] [address] [place] [phone] Dec, [facility] [address] [facility] [id number] [address] [place] [phone] Dec, Thoracic disc herniation M51 .24 [place] [address] [place] [id number] [address] [place] [phone] Dec, [facility] [address] [id number] [address] [place] [id number] Nov, Major depressive disorder in partial remission F32.4 and FRANCIS (generalized anxiety disorder) F41.1 [facility] [address] [id number] [address] [place] [phone] Nov, [facility] [address] [id number] [address] [place] [phone] Nov, Dorsalgia, unspecified M54.9 [facility] [address] [id number] [address] [place] [phone] Oct, [facility] [address] [id number] [address] [place] [phone] September, [facility] [address] [id number] [address] [place] [phone] Aug, [facility] [address] [id number] [address] [place] [phone] Aug, Major depressive disorder in partial remission F32.4 and FRANCIS (generalized anxiety disorder) F41.1 [facility] [address] [id number] [address] [place] [phone] Aug, [facility] [address] [id number] [address] [place] [phone] Jul, Abnormal mammogram R92.8 [facility] [address] [id number] [address] [place] [phone] Jul, [facility] [address] [id number] [address] [place] [phone] Jul, [facility] [address] [id number] [address] [place] [phone] 14 Jul, 2015 [facility] [address] [id number] [address] [place] [phone] Jul, [facility] [address] [id number] [address] [place] [phone] Jul, [facility] [address] [id number] [address] [place] [phone] Jul, [facility] [address] [facility] [id number] [address] [place] [phone] Jun, Major depressive disorder in partial remission F32.4 and FRANCIS (generalized anxiety disorder) F41.1 [facility] [address] [id number] [address] [place] [phone] Jun, [facility] [address] [id number] [address] [place] [phone] May, [facility] [address] [id number] [address] [place] [phone] Apr, [facility] [address] [facility] [id number] [address] [place] [phone] Mar, Major depressive disorder, r ecurrent episode, moderate F33.1 ; PTSD (post-traumatic stress disorder) F43.10 and FRANCIS (generalized anxiety disorder) F41.1 [facility] [address] [id number] [address] [place] [phone] Mar, [facility] [address] [id number] [address] [place] [phone] Mar, [facility] [address] [id number] [address] [place] [phone] Mar, [facility] [address] [id number] [address] [place] [phone] Mar, [facility] [address] [id number] [address] [place] [phone] Jan, [facility] [address] [id number] [address] [place] [id number] Jan, [facility] [address] [id number] [address] [place] [phone] Jan, [facility] [address] [id number] [address] [place] [phone] 14 Jan, 2015 Thoracic disc herniation 722 .11 [facility] [address] [id number] [address] [place] [id number] Dec, [facility] [address] [id number] [address] [place] [id number] Dec, [facility] [address] [id number] [address] [place] [phone] Dec, [facility] [address] [id number] [address] [place] [phone] Nov, [facility] [address] [id number] [address] [place] [phone] Nov, Generalized anxiety disorder 300.02 ; Posttraumatic stress disorder 309.81 and Major depressive disorder, recurrent episode, moderate 296.32 [facility] [address] [id number] [address] [place] [id number] Nov, [facility] [address] [id number] [address] [place] [phone] Nov, [facility] [address] [id number] [address] [place] [phone] Oct, [facility] [address] [id number] [address] [place] [id number] 05 Oct, 2014 [facility] [address] [id number] [address] [place] [phone] Oct, [facility] [address] [id number] [address] [place] [phone] September, [facility] [address] [id number] [address] [place] [phone] September, [facility] [address] [facility] [id number] [address] [place] [id number] Aug, [facility] [address] [id number] [address] [place] [phone] Aug, [facility] [address] [id number] [address] [place] [address], [place] [id number] Jul, [facility] [address] [id number] [address] [place] [address], [place] [id number] Jul, [facility] [address] [id number] [address] [place] [address], [place] [id number] 17 Jul, 2014 [facility] [address] [id number] [address] [place] [address], [place] [id number] 17 Jul, 2014 [facility] [address] [id number] [address] [place] [address], [place] [id number] 16 Jul, 2014 [facility] [address] [id number] [address] [place] [address], [place] [address] Jul, [facility] [address] [id number] [address] [place] [address], [place] [id number] Jul, [facility] [address] [id number] [address] [place] [address], [place] [id number] Jul, [facility] [address] [id number] [address] [place] [address], [place] [id number] Jul, [facility] [address] [id number] [address] [place] [address], [place] [address] Jul, [facility] [address] [id number] [address] [place] [address], [place] [address] Jun, [facility] [address] [id number] [address] [place] [id number] Jun, [facility] [address] [id number] [address] [place] [address], [place] [address] Jun, [facility] [address] [id number] [address] [place] [address], [place] [address] May, [facility] [address] [id number] [address] [place] [address], [place] [id number] Apr, [facility] [address] [id number] [address] [place] [address], [place] [address] Apr, [facility] [address] [id number] [address] [place] [address], [place] [id number] Apr, [facility] [address] [id number] [address] [place] [address], [place] [id number] Apr, [facility] [address] [id number] [address] [place] [address], [place] [id number] Apr, [facility] [address] [id number] [address] [place] [address], [place] [id number] Apr, [facility] [address] [id number] [address] [place] [address], [place] [address] Apr, [facility] [address] [id number] [address] [place] [address], [place] [address] Apr, [facility] [address] [id number] [address] [place] [address], [place] [id number] Mar, [facility] [address] [id number] [address] [place] [address], [place] [id number] Mar, [facility] [address] [id number] [address] [place] [address], [place] [id number] Mar, [facility] [address] [id number] [address] [place] [address], [place] [id number] Mar, [facility] [address] [id number] [address] [place] [address], [place] [id number] Mar, [facility] [address] [id number] [address] [place] [address], [place] [id number] Mar, [facility] [address] [id number] [address] [place] [address], [place] [address] Mar, [facility] [address] [id number] [address] [place] [address], [place] [address] Mar, [facility] [address] [id number] [address] [place] [address], [place] [id number] Mar, [facility] [address] [id number] [address] [place] [address], [place] [address] Mar, 2013 [facility] [address] [id number] [address] [place] [address], [place] [id number] 17 Mar, 2014 [facility] [address] [id number] [address] [place] [address], [place] [address] 14 Mar, 2014 [facility] [address] [id number] [address] [place] [address], [place] [address] 14 Mar, 2014 [facility] [address] [id number] [address] [place] [address], [place] [id number] 07 Mar, 2014 [facility] [address] [id number] [address] [place] [address], [place] [id number] 07 Mar, 2014 [facility] [address] [id number] [address] [place] [address], [place] [address] Mar, [facility] [address] [id number] [address] [place] [address], [place] [address] Mar, [facility] [address] [id number] [address] [place] [address], [place] [id number] 19 Jan, 2013 [facility] [address] [id number] [address] [place] [address], [place] [id number] 19 Jan, 2013 [facility] [address] [id number] [address] [place] [address], [place] [id number] 09 Sep, 2013 [facility] [address] [id number] [address] [place] [address], [place] [id number] 09 Sep, 2013 [facility] [address] [id number] [address] [place] [address], [place] [id number] 05 Sep, 2013 [facility] [address] [id number] [address] [place] [address], [place] [address] 05 Sep, 2013 [facility] [address] [id number] [address] [place] [address], [place] [id number] 05 Sep, 2013 [facility] [address] [id number] [address] [place] [address], [place] [id number] 05 Jan, 2013 [facility] [address] [id number] [address] [place] [address], [place] [id number] Jan, 2013 [facility] [address] [id number] [address] [place] [address], [place] [address] Jan, [facility] [address] [id number] [address] [place] [address], [place] [address] Jan, 2013 [facility] [address] [id number] [address] [place] [address], [place] [address] Jan, 2013 [facility] [address] [id number] [address] [place] [address], [place] [id number] Jan, [facility] [address] [id number] [address] [place] [address], [place] [address] Dec, [facility] [address] [id number] [address] [place] [address], [place] [address] Dec, [facility] [address] [id number] [address] [place] [address], [place] [address] Dec, [facility] [address] [id number] [address] [place] [address], [place] [address] Dec, [facility] [address] [id number] [address] [place] [address], [place] [id number] Dec, [facility] [address] [id number] [address] [place] [address], [place] [id number] Dec, [facility] [address] [place] [id number] Dec, [facility] [address] [place] [id number] Dec, [facility] [address] [id number] [address] [place] [address], [place] [address] Dec, [facility] [address] [id number] [address] [place] [address], [place] [address] Dec, [facility] [address] [id number] [address] [place] [address], [place] [address] Dec, [facility] [address] [id number] [facility] [address] Dec, [facility] [address] [id number] [facility] [place] [address] Nov, [facility] [address] [id number] [facility] [place] [address] Nov, [facility] [address] [id number] [address] [place] [address], [place] [address] Nov, [facility] [address] [id number] [facility] [place] [address] Nov, [facility] [address] [id number] [address] [place] [address], [place] [address] Nov, [facility] [address] [id number] [address] [place] [address], [place] [address] Nov, [facility] [address] [id number] [address] [place] [address], [place] [address] Nov, [facility] [address] [id number] [address] [place] [address], [place] [address] Nov, [facility] [address] [id number] [address] [place] [address], [place] [address] Nov, [facility] [address] [id number] [address] [place] [address], [place] [address] Nov, [facility] [address] [id number] [address] [place] [address], [place] [address] Nov, [facility] [address] [id number] [address] [place] [address], [place] [address] Nov, [facility] [address] [id number] [address] [place] [address], [place] [address] Nov, [facility] [address] [id number] [address] [place] [address], [place] [id number] Oct, [facility] [address] [id number] [facility] [place] [address] Oct, [facility] [address] [id number] [address] [place] [address], [place] [address] Oct, [facility] [address] [id number] [address] [place] [address], [place] [address] Oct, [facility] [address] [id number] [address] [place] [address], [place] [address] Oct, [facility] [address] [id number] [address] [place] [address], [place] [address] Oct, [facility] [address] [id number] [address] [place] [address], [place] [address] Oct, [facility] [address] [id number] [address] [place] [address], [place] [address] Oct, [facility] [address] [id number] [address] [place] [address], [place] [address] Oct, [facility] [address] [id number] [address] [place] [address], [place] [address] Oct, [facility] [address] [id number] [address] [place] [address], [place] [address] Oct, [facility] [address] [id number] [address] [place] [address], [place] [address] Oct, [facility] [address] [id number] [address] [place] [address], [place] [address] September, [facility] [address] [id number] [address] [place] [address], [place] [address] September, [facility] [address] [id number] [address] [place] [address], [place] [address] September, [facility] [address] [id number] [address] [place] [address], [place] [address] September, [facility] [address] [id number] [address] [place] [address], [place] [address] Aug, [facility] [address] [id number] [facility] [place] [address] Aug, [facility] [address] [id number] [facility] [place] [address] Aug, [facility] [address] [id number] [facility] [place] [address] Aug, [facility] [address] [id number] [address] [place] [address], [place] [address] Aug, [facility] [address] [id number] [facility] [place] [address] Aug, [facility] [address] [id number] [address] [place] [address], [place] [address] Aug, [facility] [address] [id number] [address] [place] [address], [place] [address] Jul, [facility] [address] [id number] [address] [place] [address], [place] [address] Jul, [facility] [address] [id number] [address] [place] [address], [place] [address] Jul, [facility] [address] [id number] [address] [place] [address], [place] [address] Jul, [facility] [address] [id number] [address] [place] [address], [place] [address] Jul, [facility] [address] [id number] [address] [place] [address], [place] [id number] Jul, [facility] [address] [id number] [address] [place] [address], [place] [id number] 18 Jul, 2013 [facility] [address] [id number] [address] [place] [address], [place] [id number] Jul, [facility] [address] [id number] [address] [place] [address], [place] [id number] 18 Jul, 2013 [facility] [address] [id number] [address] [place] [address], [place] [address] 18 Jul, 2013 [facility] [address] [id number] [address] [place] [address], [place] [address] 18 Jul, 2013 [facility] [address] [id number] [address] [place] [address], [place] [id number] 18 Jul, 2013 [facility] [address] [id number] [address] [place] [address], [place] [address] 14 Jul, 2013 [facility] [address] [id number] [address] [place] [address], [place] [address] 14 Jul, 2013 [facility] [address] [id number] [address] [place] [address], [place] [address] Jul, [facility] [address] [id number] [address] [place] [address], [place] [id number] 11 Jul, 2013 [facility] [address] [id number] [address] [place] [address], [place] [id number] Jul, [facility] [address] [id number] [address] [place] [address], [place] [address] 11 Jul, 2013 [facility] [address] [id number] [address] [place] [address], [place] [address] Jun, [facility] [address] [id number] [address] [place] [address], [place] [id number] 31 Jun, 2013 [facility] [address] [id number] [address] [place] [address], [place] [address] Jun, [facility] [address] [id number] [address] [place] [address], [place] [id number] 15 Jun, 2013 [facility] [address] [id number] [address] [place] [address], [place] [id number] 14 Jun, 2013 [facility] [address] [id number] [address] [place] [address], [place] [id number] 14 Jun, 2013 [facility] [address] [id number] [address] [place] [address], [place] [id number] 14 Jun, 2013 [facility] [address] [id number] [address] [place] [address], [place] [address] 14 Jun, 2013 [facility] [address] [id number] [address] [place] [address], [place] [id number] 14 Jun, 2013 [facility] [address] [id number] [address] [place] [address], [place] [id number] 14 Jun, 2013 [facility] [address] [id number] [address] [place] [address], [place] [id number] 27 May, 2013 [facility] [address] [id number] [address] [place] [address], [place] [address] 27 May, 2013 [facility] [address] [id number] [address] [place] [address], [place] [address] 26 May, 2013 [facility] [address] [id number] [address] [place] [address], [place] [id number] 19 May, 2013 [facility] [address] [id number] [address] [place] [address], [place] [id number] 19 May, 2013 [facility] [address] [id number] [address] [place] [address], [place] [id number] 16 May, 2013 [facility] [address] [id number] [address] [place] [address], [place] [id number] 16 May, 2013 [facility] [address] [id number] [address] [place] [address], [place] [address] 16 May, 2013 [facility] [address] [id number] [address] [place] [address], [place] [id number] 16 May, 2013 [facility] [address] [id number] [address] [place] [address], [place] [id number] 13 May, 2013 [facility] [address] [id number] [address] [place] [address], [place] [address] 13 May, 2013 [facility] [address] [id number] [address] [place] [address], [place] [id number] 11 May, 2013 [facility] [address] [id number] [address] [place] [address] Apr, [facility] [address] [id number] [address] [place] [address], [place] [address] Apr, [facility] [address] [id number] [address] [place] [id number] 18 Apr, 2013 [facility] [address] [id number] [address] [place] [address], [place] [address] Apr, [facility] [address] [id number] [address] [place] [id number] 13 Apr, 2013 [facility] [address] [id number] [address] [place] [address], [place] [id number] 08 Apr, 2013 [facility] [address] [id number] [address] [place] [id number] 08 Apr, 2013 [facility] [address] [id number] [address] [place] [id number] Apr, [facility] [address] [id number] [address] [place] [id number] Apr, [facility] [address] [id number] [address] [place] [id number] Apr, [facility] [address] [id number] [address] [place] [id number] Apr, [facility] [address] [id number] [address] [place] [id number] Mar, [facility] [address] [id number] [address] [place] [id number] Mar, [facility] [address] [id number] [address] [place] [address] Mar, [facility] [address] [id number] [address] [place] [id number] Mar, [facility] [address] [id number] [address] [place] [address], [place] [id number] Mar, [facility] [address] [id number] [address] [place] [address], [place] [address] Mar, [facility] [address] [id number] [address] [place] [address], [place] [id number] Mar, [facility] [address] [id number] [address] [place] [address], [place] [address] Mar, [facility] [address] [id number] [address] [place] [address], [place] [id number] Mar, [facility] [address] [id number] [address] [place] [address], [place] [id number] Mar, [facility] [address] [id number] [address] [place] [address], [place] [id number] Mar, [facility] [address] [id number] [address] [place] [address], [place] [id number] Mar, [facility] [address] [id number] [address] [place] [address], [place] [id number] 30 Jan, 2013 [facility] [address] [id number] [address] [place] [address], [place] [id number] Jan, [facility] [address] [id number] [address] [place] [address], [place] [id number] Jan, [facility] [address] [id number] [address] [place] [address], [place] [id number] Jan, [facility] [address] [id number] [address] [place] [address], [place] [id number] Dec, [facility] [address] [id number] [address] [place] [address], [place] [id number] Dec, [facility] [address] [id number] [address] [place] [address], [place] [id number] Dec, [facility] [address] [id number] [address] [place] [address], [place] [id number] Dec, [facility] [address] [id number] [address] [place] [address], [place] [id number] Dec, [facility] [address] [id number] [address] [place] [address], [place] [id number] Dec, [facility] [address] [id number] [address] [place] [address], [place] [id number] Dec, [facility] [address] [id number] [address] [place] [address], [place] [id number] Dec, [facility] [address] [id number] [address] [place] [address], [place] [id number] Dec, [facility] [address] [id number] [address] [place] [address], [place] [id number] Nov, [facility] [address] [id number] [address] [place] [address], [place] [id number] Nov, [facility] [address] [id number] [address] [place] [address], [place] [id number] Nov, [facility] [address] [id number] [address] [place] [address], [place] [id number] Nov, [facility] [address] [id number] [address] [place] [address], [place] [id number] Nov, [facility] [address] [id number] [address] [place] [address], [place] [id number] Nov, [facility] [address] [id number] [address] [place] [address], [place] [id number] Nov, [facility] [address] [id number] [address] [place] [address], [place] [id number] Nov, [facility] [address] [id number] [address] [place] [address], [place] [id number] Oct, [facility] [address] [id number] [address] [place] [address], [place] [id number] Oct, [facility] [address] [id number] [address] [place] [address], [place] [id number] Oct, [facility] [address] [id number] [address] [place] [address], [place] [id number] Oct, [facility] [address] [id number] [address] [place] [address], [place] [id number] Oct, [facility] [address] [id number] [address] [place] [address], [place] [id number] Oct, [facility] [address] [id number] [address] [place] [address], [place] [id number] Oct, [facility] [address] [id number] [address] [place] [address], [place] [id number] Oct, [facility] [address] [id number] [address] [place] [address], [place] [id number] Oct, [facility] [address] [id number] [address] [place] [address], [place] [id number] 18 Oct, 2012 [facility] [address] [id number] [address] [place] [address], [place] [id number] 17 Oct, 2012 [facility] [address] [id number] [address] [place] [address], [place] [id number] 14 Oct, 2012 [facility] [address] [id number] [address] [place] [address], [place] [id number] 07 Oct, 2012 [facility] [address] [id number] [address] [place] [address], [place] [id number] 30 Sep, 2012 [facility] [address] [id number] [address] [place] [address], [place] [id number] September, [facility] [address] [id number] [address] [place] [address], [place] [id number] September, [facility] [address] [id number] [address] [place] [address], [place] [id number] Aug, [facility] [address] [id number] [address] [place] [address], [place] [id number] 24 Aug, 2012 [facility] [address] [id number] [address] [place] [address], [place] [id number] 18 Aug, 2012 [facility] [address] [id number] [address] [place] [address], [place] [id number] 18 Aug, 2012 [facility] [address] [id number] [address] [place] [address], [place] [id number] 18 Aug, 2012 [facility] [facility] [address] [id number] [address] [place] [address], [place] [id number] 08 Aug, 2012 [facility] [address] [id number] [address] [place] [address], [place] [id number] 05 Aug, 2012 [facility] [address] [id number] [address] [place] [address], [place] [id number] Jul, [facility] [address] [id number] [address] [place] [address], [place] [id number] Jul, [facility] [address] [id number] [address] [place] [address], [place] [id number] Jul, [facility] [address] [id number] [address] [place] [address], [place] [id number] Jul, [facility] [address] [id number] [address] [place] [address], [place] [id number] Jul, [facility] [address] [id number] [address] [place] [address], [place] [id number] Jul, [facility] [address] [id number] [address] [place] [address], [place] [id number] Jul, [facility] [address] [id number] [address] [place] [id number] Jul, [facility] [address] [id number] [address] [place] [address], [place] [id number] Jul, [facility] [address] [id number] [address] [place] [address], [place] [id number] Jul, [facility] [address] [id number] [address] [place] [address], [place] [id number] Jul, [facility] [address] [id number] [address] [place] [address], [place] [id number] 06 Jul, 2012 [facility] [address] [id number] [address] [place] [address], [place] [id number] Jul, [facility] [address] [id number] [address] [place] [address], [place] [id number] 24 Jun, 2012 [facility] [address] [id number] [address] [place] [address], [place] [id number] Jun, [facility] [address] [id number] [address] [place] [address], [place] [id number] Jun, [facility] [address] [id number] [address] [place] [address], [place] [id number] 17 Jun, 2012 [facility] [address] [id number] [address] [place] [address], [place] [id number] 15 Jun, 2012 [facility] [address] [id number] [address] [place] [address], [place] [id number] Jun, [facility] [address] [id number] [address] [place] [address], [place] [id number] Jun, [facility] [address] [id number] [address] [place] [address], [place] [id number] May, [facility] [address] [id number] [address] [place] [address], [place] [id number] May, [facility] [address] [id number] [address] [place] [address], [place] [id number] May, [facility] [address] [id number] [address] [place] [address], [place] [id number] May, [facility] [address] [id number] [address] [place] [address], [place] [id number] May, [facility] [address] [id number] [address] [place] [address], [place] [id number] 24 May, 2012 [facility] [address] [id number] [address] [place] [address], [place] [id number] May, [facility] [address] [id number] [address] [place] [address], [place] [id number] May, [facility] [address] [id number] [address] [place] [address], [place] [id number] May, [facility] [address] [id number] [address] [place] [address], [place] [id number] May, [facility] [address] [id number] [address] [place] [address], [place] [id number] Apr, [facility] [address] [id number] [address] [place] [address], [place] [id number] Apr, [facility] [address] [id number] [address] [place] [address], [place] [id number] Apr, [facility] [address] [id number] [address] [place] [address], [place] [id number] Apr, [facility] [address] [id number] [address] [place] [address], [place] [id number] Apr, [facility] [address] [id number] [address] [place] [address], [place] [id number] Apr, [facility] [address] [id number] [address] [place] [address], [place] [id number] Apr, [facility] [address] [id number] [address] [place] [address], [place] [id number] Apr, [facility] [address] [id number] [address] [place] [address], [place] [id number] Apr, [facility] [address] [id number] [address] [place] [address], [place] [id number] Apr, [facility] [address] [id number] [address] [place] [address], [place] [id number] Apr, [facility] [address] [id number] [address] [place] [address], [place] [id number] Apr, [facility] [address] [id number] [address] [place] [address], [place] [id number] Mar, 2011 [facility] [address] [id number] [address] [place] [address], [place] [id number] 31 Mar, 2011 [facility] [address] [id number] [address] [place] [id number] Mar, 2011 [facility] [address] [id number] [address] [place] [id number] Mar, 2011 [facility] [address] [id number] [address] [place] [id number] Mar, 2011 [facility] [address] [id number] [address] [place] [address], [place] [id number] Mar, 2011 [facility] [address] [id number] [address] [place] [id number] Mar, 2011 [facility] [address] [id number] [address] [place] [id number] Mar, 2011 [facility] [address] [id number] [address] [place] [phone] Mar, 2011 [facility] [address] [id number] [address] [place] [id number] Mar, 2011 [facility] [address] [id number] [address] [place] [phone] Mar, 2011 [facility] [address] [id number] [address] [place] [phone] Mar, 2011 [facility] [address] [id number] [address] [place] [id number] Mar, 2011 [facility] [address] [id number] [address] [place] [phone] Mar, [facility] [address] [id number] [address] [place] [id number] Mar, [facility] [address] [id number] [address] [place] [phone] Mar, [facility] [address] [id number] [facility] [id number] 25 Sep, 2011 [facility] [address] [id number] [address] [place] [address], [place] [id number] 24 Sep, 2011 [facility] [address] [id number] [address] [place] [address], [place] [id number] 22 Sep, 2011 [facility] [address] [id number] [address] [place] [address], [place] [id number] 22 Sep, 2011 [facility] [address] [id number] [address] [place] [address], [place] [id number] 21 Sep, 2011 [facility] [address] [id number] [address] [place] [address], [place] [id number] 18 Sep, 2011 [facility] [address] [id number] [address] [place] [address], [place] [id number] 14 Jan, 2011 [facility] [address] [id number] [address] [place] [address], [place] [id number] 07 Jan, 2011 [facility] [address] [id number] [address] [place] [address], [place] [id number] 15 Dec, 2011 [facility] [address] [id number] [address] [place] [address], [place] [id number] 10 Dec, 2011 [facility] [address] [id number] [address] [place] [address], [place] [id number] 09 Dec, 2011 [facility] [address] [id number] [address] [place] [address], [place] [id number] 08 Dec, 2011 [facility] [address] [id number] [address] [place] [address], [place] [id number] Dec, [facility] [address] [id number] [address] [place] [address], [place] [id number] Dec, [facility] [address] [id number] [address] [place] [address], [place] [id number] Dec, [facility] [address] [id number] [address] [place] [address], [place] [id number] Nov, [facility] [address] [id number] [address] [place] [address], [place] [id number] 06 Oct, 2011 [facility] [address] [id number] [address] [place] [address], [place] [id number] 05 Aug, 2011 [facility] [address] [id number] [address] [place] [address], [place] [id number] 22 Jul, 2011 [facility] [address] [id number] [address] [place] [address], [place] [id number] 19 Jul, 2011 [facility] [address] [id number] [address] [place] [address], [place] [id number] 16 Jul, 2011 [facility] [address] [id number] [address] [place] [address], [place] [id number] 14 Jul, 2011 [facility] [address] [id number] [address] [place] [address], [place] [id number] 07 Jul, 2011 [facility] [address] [id number] [address] [place] [address], [place] [id number] Jul, [facility] [address] [id number] [address] [place] [address], [place] [id number] Jul, [facility] [address] [id number] [address] [place] [address], [place] [id number] 15 Jul, 2011 [facility] [address] [id number] [address] [place] [address], [place] [id number] Jul, [facility] [address] [id number] [address] [place] [address], [place] [id number] Jul, [facility] [address] [id number] [address] [place] [address], [place] [id number] Jul, [facility] [address] [id number] [address] [place] [address], [place] [id number] Jun, [facility] [address] [id number] [address] [place] [address], [place] [id number] Jun, [facility] [address] [id number] [address] [place] [address], [place] [id number] 13 Jun, 2011 [facility] [address] [id number] [address] [place] [address], [place] [id number] 11 Jun, 2011 [facility] [address] [id number] [address] [place] [address], [place] [id number] 06 Jun, 2011 [facility] [address] [id number] [address] [place] [address], [place] [id number] Jun, [facility] [address] [id number] [address] [place] [address], [place] [id number] Jun, [facility] [address] [id number] [address] [place] [address], [place] [id number] May, [facility] [address] [id number] [address] [place] [address], [place] [id number] May, [facility] [address] [id number] [address] [place] [address], [place] [id number] May, [facility] [address] [id number] [address] [place] [address], [place] [id number] May, [facility] [address] [id number] [address] [place] [address], [place] [id number] May, [facility] [address] [id number] [address] [place] [address], [place] [id number] May, [facility] [address] [id number] [address] [place] [address], [place] [id number] May, [facility] [address] [id number] [address] [place] [address], [place] [id number] May, [facility] [address] [id number] [address] [place] [address], [place] [id number] 06 May, 2011 [facility] [address] [id number] [address] [place] [address], [place] [id number] 03 May, 2011 [facility] [address] [id number] [address] [place] [address], [place] [id number] 15 Apr, 2011 [facility] [address] [id number] [address] [place] [id number] Apr, [facility] [address] [id number] [address] [place] [id number] Apr, [facility] [address] [id number] [address] [place] [phone] Apr, [facility] [address] [facility] [id number] [address] [place] [id number] Mar, [facility] [address] [id number] [address] [place] [id number] Mar, [facility] [address] [facility] [id number] [address] [place] [id number] Mar, [facility] [address] [facility] [id number] [address] [place] [id number] Mar, IMMUNIZATIONS No Known Immunizations SOCIAL HISTORY Never Assessed REASON FOR VISIT PLAN OF CARE VITAL SIGNS MEDICATIONS Unknown [...] History Colonoscopy Hospitalization History surgeries Hospitalization History [facility] for seizures 03/24/16 Hospitalization History [facility] for kidney stones[facility]hypertension 0 12/2017
--- OUTSIDE RECORDS SUMMARY | 2020-01-03 17:46 | XMS REPORT ---
Author Author Pattie Moffett Doctor Organization [facility] Address Unknown Phone Unavailable Care Team Providers Care [employer] Name Role Phone Migration, Doctor Unavailable Unavailable PROBLEMS Type Condition ICD9-CM Code HAI17-AD Code Onset Dates Condition S tatus SNOMED Code Problem FRANCIS (generalized anxiety disorder) F41.1 Active 24300864 Problem Thoracic disc herniation M51.24 Activ e 942812670 Problem Major depressive disorder in partial remission F32 .4 Active 72731534 Problem Seizure disorder G40.909 Active 128 318650 Problem Conversion disorder (or hysterical neurosis, conversion ty pe) F44.9 Active 05302829 Problem Constipation, unspecified constipation type K59.00 Active 08154176 Problem Mild episode of recurrent major depressive disorder F33.0 Active 004947469 Problem Restless leg syndrome G25.81 Active 92770090 Problem Nonadherence to medication Z91.14 Act vivian 534813746 Problem Slow transit constipation K59.01 Acti ve 56020255 Problem Atrophic vaginitis N95.2 Active 5 7145219 Problem Paroxysmal tachycardia I47.9 Active 38772891 Problem Other chronic pain G89.29 Active 8 4409451 Problem Mild intermittent asthma without complication J45. 20 Active 073439240 Problem Obesity (BMI 30.0-34.9) E66.9 Active 060540125370710 Problem High blood pressure I10 Active 61788288 ALLERGIES No Information ENCOUNTERS Encounter Location Date Diagnosis [facility] [address] [facility] [id number] [place] [address] Nov, [facility] [address] [facility] [id number] [address] [place] [address] Nov, [facility] [address] [facility] [id number] [address] [place] [address] Nov, [facility] [address] [facility] [address] [id number] [place] [id number] Oct, Breast cancer screening Z12.[address] [id number] [address] 08 Oct, 2019 Breast cancer screening Z12. 39 [facility] [address] [id number] [address] [place] [address] Oct, [facility] [address] [id number] [address] [place] [address] Oct, [facility] [address] [facility] [id number] [address] [place] [address] September, [facility] [address] [id number] [address] [place] [address] September, [facility] [address] [facility] [id number] [address] [place] [address] September, Well woman exam with routine gynecological exam Z01.419 and Atrophic vaginitis N95.2 [facility] [address] [facility] [id number] [address] [place] [address] September, Major depressive disorder in partial remission F32.4 ; FRANCIS (generalized anxiety disorder) F41.1 ; Restless leg syndrome G25.81 and Nonadherence to medication Z91.14 [facility] [address] [facility] [id number] [address] [place] [address] September, [facility] [address] [id number] [address] [place] [address] Aug, [facility] [address] [id number] [address] [place] [id number] Aug, Dental examination Z01.20 [facility] [address] [id number] [address] [place] [id number] Aug, Dental examination Z01.20 an d Caries K02.9 [facility] [address] [id number] [address] [place] [address] Aug, [facility] [address] [id number] [address] [place] [address] Aug, [facility] [address] [id number] [address] [place] [address] Aug, Other chronic pain G89.29 an d Back muscle spasm M62.830 [facility] [address] [id number] [address] [place] [address] 07 Aug, 2019 [facility] [address] [id number] [address] [place] [address] Aug, Major depressive disorder in partial remission F32.4 ; FRANCIS (generalized anxiety disorder) F41.1 ; Restless leg syndrome G25.81 and Nonadherence to medication Z91.14 [facility] [address] [id number] [address] [place] [address] Aug, [facility] [address] [id number] [address] [place] [address] Jul, [facility] [address] [id number] [address] [place] [address] Jul, [facility] [address] [id number] [address] [place] [address] Jul, Major depressive disorder in partial remission F32.4 ; FRANCIS (generalized anxiety disorder) F41.1 ; Restless leg syndrome G25.81 and High blood pressure I10 [facility] [address] [id number] [address] [place] [address] Jul, [facility] [address] [id number] [address] [place] [address] Jul, [facility] [address] [id number] [address] [place] [address] Jun, [facility] [address] [id number] [address] [place] [address] May, [facility] [address] [id number] [address] [place] [address] Apr, [facility] [address] [id number] [address] [place] [address] Apr, [facility] [address] [id number] [address] [place] [address] Mar, [facility] [address] [facility] [id number] [address] [place] [address] Mar, Major depressive disorder in partial remission F32.4 ; FRANCIS (generalized anxiety disorder) F41.1 and Restless leg syndrome G25.81 [facility] [address] [id number] [address] [place] [address] Mar, Obesity (BMI 30.0-34.9) E66. 9 [facility] [address] [id number] [address] [place] [address] Jan, [facility] [address] [facility] [id number] [address] [place] [address] Jan, Burn T30.0 [facility] [address] [id number] [address] [place] [address] Dec, [facility] [address] [id number] [address] [place] [address] Nov, [facility] [address] [facility] [id number] [address] [place] [address] Nov, [facility] [address] [id number] [address] [place] [id number] Nov, Dental examination Z01.20 [facility] [address] [id number] [address] [place] [address] September, [facility] [address] [id number] [address] [place] [id number] September, Decay, teeth K02.9 and Denta l examination Z01.20 [facility] [address] [id number] [address] [place] [address] [id number] September, Dental examination Z01.20 [facility] [address] [id number] [address] [place] [address] September, FRANCIS (generalized anxiety dis order) F41.1 ; Major depressive disorder in partial remission F32.4 and Restless leg syndrome G25.81 [facility] [address] [facility] [id number] [address] [place] [address] Aug, [facility] [address] [facility] [id number] [address] [place] [address] Jul, [facility] [address] [facility] [id number] [address] [place] [address] Jul, Encounter to discuss test re sults Z71.2 [place] [address] [facility] [id number] [address] [place] [address] Jul, Pelvic pain R10.2 ; Screenin g for breast cancer Z12.31 and Obesity (BMI 30.0-34.9) E66.9 [facility] [address] [facility] [id number] [address] [place] [address] Jul, Mild intermittent asthma wit hout complication J45.20 [place] [address] [facility] [id number] [address] [place] [address] Jul, Major depressive disorder in partial remission F32.4 and FRANCIS (generalized anxiety disorder) F41.1 [place] [address] [facility] [id number] [address] [place] [address] Jul, [facility] [address] [facility] [id number] [address] [place] [address] Jun, [facility] [address] [facility] [id number] [address] [place] [address] May, Major depressive disorder in partial remission F32.4 ; FRANCIS (generalized anxiety disorder) F41.1 and Restless leg syndrome G25.81 [facility] [address] [facility] [id number] [address] [place] [address] Apr, [facility] [address] [facility] [id number] [address] [place] [address] Mar, [facility] [address] [id number] [address] [place] [address] 21 Jan, 2018 Pain in thoracic spine M54.6 and Other chronic pain G89.29 [facility] [address] [id number] [address] [place] [address] 14 Jan, 2018 [facility] [address] [id number] [address] [place] [address] 11 Jan, 2018 Mild episode of recurrent ma saray depressive disorder F33.0 ; FRANCIS (generalized anxiety disorder) F41.1 and Restless leg syndrome G25.81 [facility] [address] [id number] [address] [place] [address] Dec, [facility] [address] [id number] [address] [place] [address] Dec, Hospital discharge follow-up Z09 [facility] [address] [id number] [address] [place] [address] Nov, [facility] [address] [id number] [address] [place] [address] Nov, [facility] [address] [id number] [address] [place] [address] September, [facility] [address] [id number] [address] [place] [address] September, [facility] [address] [id number] [address] [place] [address] September, Major depressive disorder in partial remission F32.4 ; FRANCIS (generalized anxiety disorder) F41.1 and Restless leg syndrome G25.81 [facility] [address] [id number] [address] [place] [address] September, [facility] [address] [id number] [address] [place] [address] Jul, [facility] [address] [id number] [address] [place] [address] 02 Mar, 2018 Dorsalgia, unspecified M54.9 [facility] [address] [id number] [address] [place] [address] Jul, Mild episode of recurrent ma saray depressive disorder F33.0 and FRANCIS (generalized anxiety disorder) F41.1 [facility] [address] [id number] [address] [place] [address] May, [facility] [address] [id number] [address] [place] [address] May, Dysuria R30.0 and Acute cyst itis with hematuria N30.01 [place] [address] [id number] [address] [place] [address] Apr, [facility] [address] [id number] [address] [place] [address] Apr, Major depressive disorder in partial remission F32.4 and FRANCIS (generalized anxiety disorder) F41.1 [place] [address] [id number] [address] [place] [address] Mar, Paroxysmal tachycardia I47.9 [place] [address] [id number] [address] [place] [address] Mar, Paroxysmal tachycardia I47.9 and Pain of left lower extremity M79.605 [facility] [address] [id number] [address] [place] [address] Mar, FRANCIS (generalized anxiety dis order) F41.1 and Major depressive disorder in partial remission F32.4 [facility] [address] [id number] [address] [place] [address] Jan, [facility] [address] [id number] [address] [place] [address] 14 Jan, 2017 [facility] [address] [id number] [address] [place] [address] Jan, [facility] [address] [id number] [address] [place] [address] Dec, Constipation, unspecified co nstipation type K59.00 [facility] [address] [id number] [address] [place] [address] Dec, [facility] [address] [id number] [address] [place] [address] Nov, [facility] [address] [id number] [address] [place] [address] Nov, Major depressive disorder in partial remission F32.4 and FRANCIS (generalized anxiety disorder) F41.1 [facility] [address] [id number] [address] [place] [address] Oct, Abdominal pain R10.9 and Slo w transit constipation K59.01 [place] [address] [id number] [address] [place] [address] Aug, Major depressive disorder in partial remission F32.4 ; FRANCIS (generalized anxiety disorder) F41.1 ; Conversion disorder (or hysterical neurosis, conversion type) F44.9 ; Dorsalgia, unspecified M54.9 and Long-term use of high-risk medication Z79.899 [place] [address] [id number] [address] [place] [address] Aug, [place] [address] [id number] [address] [place] [address] Jul, Paroxysmal tachycardia I47.9 [facility] [address] [id number] [address] [place] [address] Jul, Paroxysmal tachycardia I47.9 [place] [address] [id number] [address] [place] [address] Jun, [facility] [address] [facility] [id number] [address] [place] [address] Jun, Major depressive disorder in partial remission F32.4 ; FRANCIS (generalized anxiety disorder) F41.1 and Conversion disorder (or hysterical neurosis, conversion type) F44.9 [facility] [address] [facility] [id number] [address] [place] [address] May, Pelvic pain R10.2 [facility] [address] [facility] [id number] [address] [place] [address] 30 Apr, 2016 Gastroenteritis K52.9 [facility] [address] [facility] [id number] [address] [place] [address] 17 Apr, 2016 Blood in urine R31.9 and Acu te cystitis with hematuria N30.01 [facility] [address] [place] [id number] [place] [address] 17 Apr, 2016 Major depressive disorder in partial remission F32.4 ; FRANCIS (generalized anxiety disorder) F41.1 and Conversion disorder (or hysterical neurosis, conversion type) F44.9 [place] [address] [place] [id number] [place] [address] Apr, [place] [address] [address] Apr, Abnormal mammogram R92.8 [place] [address] [place] [id number] [place] [address] Mar, [place] [address] [place] [id number] [place] [address] Mar, Gastroenteritis K52.9 and Se izure disorder G40.909 [place] [address] [place] [id number] [address] [place] [address] Dec, [facility] [address] [place] [id number] [address] [place] [address] Dec, Other headache syndrome G44. 89 [place] [address] [place] [id number] [address] [place] [address] Dec, [facility] [address] [facility] [id number] [address] [place] [address] Dec, Thoracic disc herniation M51 .24 [place] [address] [place] [id number] [address] [place] [address] Dec, [facility] [address] [id number] [address] [place] [address] Nov, Major depressive disorder in partial remission F32.4 and FRANCIS (generalized anxiety disorder) F41.1 [facility] [address] [id number] [address] [place] [address] Nov, [facility] [address] [id number] [address] [place] [address] Nov, Dorsalgia, unspecified M54.9 [facility] [address] [id number] [address] [place] [address] Oct, [facility] [address] [id number] [address] [place] [address] September, [facility] [address] [id number] [address] [place] [address] Aug, [facility] [address] [id number] [address] [place] [address] Aug, Major depressive disorder in partial remission F32.4 and FRANCIS (generalized anxiety disorder) F41.1 [facility] [address] [id number] [address] [place] [address] Aug, [facility] [address] [id number] [address] [place] [address] Jul, Abnormal mammogram R92.8 [facility] [address] [id number] [address] [place] [address] Jul, [facility] [address] [id number] [address] [place] [address] Jul, [facility] [address] [id number] [address] [place] [address] 14 Jul, 2015 [facility] [address] [id number] [address] [place] [address] Jul, [facility] [address] [id number] [address] [place] [address] Jul, [facility] [address] [id number] [address] [place] [address] Jul, [facility] [address] [facility] [id number] [address] [place] [address] Jun, Major depressive disorder in partial remission F32.4 and FRANCIS (generalized anxiety disorder) F41.1 [facility] [address] [id number] [address] [place] [address] Jun, [facility] [address] [id number] [address] [place] [address] May, [facility] [address] [id number] [address] [place] [address] Apr, [facility] [address] [facility] [id number] [address] [place] [address] Mar, Major depressive disorder, r ecurrent episode, moderate F33.1 ; PTSD (post-traumatic stress disorder) F43.10 and FRANCIS (generalized anxiety disorder) F41.1 [facility] [address] [id number] [address] [place] [address] Mar, [facility] [address] [id number] [address] [place] [address] Mar, [facility] [address] [id number] [address] [place] [address] Mar, [facility] [address] [id number] [address] [place] [address] Mar, [facility] [address] [id number] [address] [place] [address] Jan, [facility] [address] [id number] [address] [place] [address] Jan, [facility] [address] [id number] [address] [place] [address] Jan, [facility] [address] [id number] [address] [place] [address] 14 Jan, 2015 Thoracic disc herniation 722 .11 [facility] [address] [id number] [address] [place] [address] Dec, [facility] [address] [id number] [address] [place] [address] Dec, [facility] [address] [id number] [address] [place] [address] Dec, [facility] [address] [id number] [address] [place] [address] Nov, [facility] [address] [id number] [address] [place] [address] Nov, Generalized anxiety disorder 300.02 ; Posttraumatic stress disorder 309.81 and Major depressive disorder, recurrent episode, moderate 296.32 [facility] [address] [id number] [address] [place] [address] Nov, [facility] [address] [id number] [address] [place] [address] Nov, [facility] [address] [id number] [address] [place] [address] Oct, [facility] [address] [id number] [address] [place] [address] 05 Oct, 2014 [facility] [address] [id number] [address] [place] [address] Oct, [facility] [address] [id number] [address] [place] [address] September, [facility] [address] [id number] [address] [place] [address] September, [facility] [address] [facility] [id number] [address] [place] [address] Aug, [facility] [address] [id number] [address] [place] [address] Aug, [facility] [address] [id number] [address] [place] [address], [place] [address] Jul, [facility] [address] [id number] [address] [place] [address], [place] [address] Jul, [facility] [address] [id number] [address] [place] [address], [place] [id number] 17 Jul, 2014 [facility] [address] [id number] [address] [place] [address], [place] [id number] 17 Jul, 2014 [facility] [address] [id number] [address] [place] [address], [place] [id number] 16 Jul, 2014 [facility] [address] [id number] [address] [place] [address], [place] [address] Jul, [facility] [address] [id number] [address] [place] [address], [place] [id number] Jul, [facility] [address] [id number] [address] [place] [address], [place] [address] Jul, [facility] [address] [id number] [address] [place] [address], [place] [address] Jul, [facility] [address] [id number] [address] [place] [address], [place] [address] Jul, [facility] [address] [id number] [address] [place] [address], [place] [id number] Jun, [facility] [address] [id number] [address] [place] [id number] Jun, [facility] [address] [id number] [address] [place] [address], [place] [address] Jun, [facility] [address] [id number] [address] [place] [address], [place] [id number] May, [facility] [address] [id number] [address] [place] [address], [place] [address] Apr, [facility] [address] [id number] [address] [place] [address], [place] [address] Apr, [facility] [address] [id number] [address] [place] [address], [place] [address] Apr, [facility] [address] [id number] [address] [place] [address], [place] [id number] Apr, [facility] [address] [id number] [address] [place] [address], [place] [address] Apr, [facility] [address] [id number] [address] [place] [address], [place] [address] Apr, [facility] [address] [id number] [address] [place] [address], [place] [address] Apr, [facility] [address] [id number] [address] [place] [address], [place] [address] Apr, [facility] [address] [id number] [address] [place] [address], [place] [address] Mar, [facility] [address] [id number] [address] [place] [address], [place] [address] Mar, [facility] [address] [id number] [address] [place] [address], [place] [address] Mar, [facility] [address] [id number] [address] [place] [address], [place] [address] Mar, [facility] [address] [id number] [address] [place] [address], [place] [address] Mar, [facility] [address] [id number] [address] [place] [address], [place] [address] Mar, [facility] [address] [id number] [address] [place] [address], [place] [address] Mar, [facility] [address] [id number] [address] [place] [address], [place] [address] Mar, [facility] [address] [id number] [address] [place] [address], [place] [address] Mar, [facility] [address] [id number] [address] [place] [address], [place] [address] Mar, 2013 [facility] [address] [id number] [address] [place] [address], [place] [address] 17 Mar, 2014 [facility] [address] [id number] [address] [place] [address], [place] [address] 14 Mar, 2014 [facility] [address] [id number] [address] [place] [address], [place] [address] 14 Mar, 2014 [facility] [address] [id number] [address] [place] [address], [place] [address] 07 Mar, 2014 [facility] [address] [id number] [address] [place] [address], [place] [address] 07 Mar, 2014 [facility] [address] [id number] [address] [place] [address], [place] [address] Mar, [facility] [address] [id number] [address] [place] [address], [place] [address] Mar, [facility] [address] [id number] [address] [place] [address], [place] [address] 19 Jan, 2013 [facility] [address] [id number] [address] [place] [address], [place] [address] 19 Jan, 2013 [facility] [address] [id number] [address] [place] [address], [place] [address] 09 Sep, 2013 [facility] [address] [id number] [address] [place] [address], [place] [address] 09 Sep, 2013 [facility] [address] [id number] [address] [place] [address], [place] [address] 05 Sep, 2013 [facility] [address] [id number] [address] [place] [address], [place] [address] 05 Sep, 2013 [facility] [address] [id number] [address] [place] [address], [place] [address] 05 Sep, 2013 [facility] [address] [id number] [address] [place] [address], [place] [address] 05 Jan, 2013 [facility] [address] [id number] [address] [place] [address], [place] [address] Jan, 2013 [facility] [address] [id number] [address] [place] [address], [place] [address] Jan, [facility] [address] [id number] [address] [place] [address], [place] [address] Jan, 2013 [facility] [address] [id number] [address] [place] [address], [place] [address] Jan, 2013 [facility] [address] [id number] [address] [place] [address], [place] [address] Jan, [facility] [address] [id number] [address] [place] [address], [place] [address] Dec, [facility] [address] [id number] [address] [place] [address], [place] [address] Dec, [facility] [address] [id number] [address] [place] [address], [place] [address] Dec, [facility] [address] [id number] [address] [place] [address], [place] [address] Dec, [facility] [address] [id number] [address] [place] [address], [place] [address] Dec, [facility] [address] [id number] [address] [place] [address], [place] [address] Dec, [facility] [address] [place] [id number] Dec, [facility] [address] [place] [id number] Dec, [facility] [address] [id number] [address] [place] [address], [place] [address] Dec, [facility] [address] [id number] [address] [place] [address], [place] [address] Dec, [facility] [address] [id number] [address] [place] [address], [place] [address] Dec, [facility] [address] [id number] [facility] [place] [address] Dec, [facility] [address] [id number] [facility] [address] Nov, [facility] [address] [id number] [facility] [address] Nov, [facility] [address] [id number] [address] [place] [address], [place] [address] Nov, [facility] [address] [id number] [facility] [address] Nov, [facility] [address] [id number] [address] [place] [address], [place] [address] Nov, [facility] [address] [id number] [address] [place] [address], [place] [address] Nov, [facility] [address] [id number] [address] [place] [address], [place] [address] Nov, [facility] [address] [id number] [address] [place] [address], [place] [address] Nov, [facility] [address] [id number] [address] [place] [address], [place] [address] Nov, [facility] [address] [id number] [address] [place] [address], [place] [address] Nov, [facility] [address] [id number] [address] [place] [address], [place] [address] Nov, [facility] [address] [id number] [address] [place] [address], [place] [address] Nov, [facility] [address] [id number] [address] [place] [address], [place] [address] Nov, [facility] [address] [id number] [address] [place] [address], [place] [address] Oct, [facility] [address] [id number] [facility] [address] Oct, [facility] [address] [id number] [address] [place] [address], [place] [address] Oct, [facility] [address] [id number] [address] [place] [address], [place] [address] Oct, [facility] [address] [id number] [address] [place] [address], [place] [address] Oct, [facility] [address] [id number] [address] [place] [address], [place] [address] Oct, [facility] [address] [id number] [address] [place] [address], [place] [address] Oct, [facility] [address] [id number] [address] [place] [address], [place] [address] Oct, [facility] [address] [id number] [address] [place] [address], [place] [address] Oct, [facility] [address] [id number] [address] [place] [address], [place] [address] Oct, [facility] [address] [id number] [address] [place] [address], [place] [address] Oct, [facility] [address] [id number] [address] [place] [address], [place] [address] Oct, [facility] [address] [id number] [address] [place] [address], [place] [address] September, [facility] [address] [id number] [address] [place] [address], [place] [address] September, [facility] [address] [id number] [address] [place] [address], [place] [address] September, [facility] [address] [id number] [address] [place] [address], [place] [address] September, [facility] [address] [id number] [address] [place] [address], [place] [address] Aug, [facility] [address] [id number] [facility] [address] Aug, [facility] [address] [id number] [facility] [address] Aug, [facility] [address] [id number] [facility] [address] Aug, [facility] [address] [id number] [address] [place] [address], [place] [address] Aug, [facility] [address] [id number] [facility] [address] Aug, [facility] [address] [id number] [address] [place] [address], [place] [address] Aug, [facility] [address] [id number] [address] [place] [address], [place] [address] Jul, [facility] [address] [id number] [address] [place] [address], [place] [address] Jul, [facility] [address] [id number] [address] [place] [address], [place] [address] Jul, [facility] [address] [id number] [address] [place] [address], [place] [address] Jul, [facility] [address] [id number] [address] [place] [address], [place] [address] Jul, [facility] [address] [id number] [address] [place] [address], [place] [address] Jul, [facility] [address] [id number] [address] [place] [address], [place] [address] 18 Jul, 2013 [facility] [address] [id number] [address] [place] [address], [place] [address] Jul, [facility] [address] [id number] [address] [place] [address], [place] [address] 18 Jul, 2013 [facility] [address] [id number] [address] [place] [address], [place] [address] 18 Jul, 2013 [facility] [address] [id number] [address] [place] [address], [place] [address] 18 Jul, 2013 [facility] [address] [id number] [address] [place] [address], [place] [address] 18 Jul, 2013 [facility] [address] [id number] [address] [place] [address], [place] [address] 14 Jul, 2013 [facility] [address] [id number] [address] [place] [address], [place] [address] 14 Jul, 2013 [facility] [address] [id number] [address] [place] [address], [place] [address] Jul, [facility] [address] [id number] [address] [place] [address], [place] [address] 11 Jul, 2013 [facility] [address] [id number] [address] [place] [address], [place] [address] Jul, [facility] [address] [id number] [address] [place] [address], [place] [address] 11 Jul, 2013 [facility] [address] [id number] [address] [place] [address], [place] [address] Jun, [facility] [address] [id number] [address] [place] [address], [place] [address] 31 Jun, 2013 [facility] [address] [id number] [address] [place] [address], [place] [address] Jun, [facility] [address] [id number] [address] [place] [address], [place] [address] 15 Jun, 2013 [facility] [address] [id number] [address] [place] [address], [place] [address] 14 Jun, 2013 [facility] [address] [id number] [address] [place] [address], [place] [address] 14 Jun, 2013 [facility] [address] [id number] [address] [place] [address], [place] [address] 14 Jun, 2013 [facility] [address] [id number] [address] [place] [address], [place] [address] 14 Jun, 2013 [facility] [address] [id number] [address] [place] [address], [place] [address] 14 Jun, 2013 [facility] [address] [id number] [address] [place] [address], [place] [address] 14 Jun, 2013 [facility] [address] [id number] [address] [place] [address], [place] [address] 27 May, 2013 [facility] [address] [id number] [address] [place] [address], [place] [address] 27 May, 2013 [facility] [address] [id number] [address] [place] [address], [place] [address] 26 May, 2013 [facility] [address] [id number] [address] [place] [address], [place] [address] 19 May, 2013 [facility] [address] [id number] [address] [place] [address], [place] [address] 19 May, 2013 [facility] [address] [id number] [address] [place] [address], [place] [address] 16 May, 2013 [facility] [address] [id number] [address] [place] [address], [place] [address] 16 May, 2013 [facility] [address] [id number] [address] [place] [address], [place] [address] 16 May, 2013 [facility] [address] [id number] [address] [place] [address], [place] [address] 16 May, 2013 [facility] [address] [id number] [address] [place] [address], [place] [address] 13 May, 2013 [facility] [address] [id number] [address] [place] [address], [place] [address] 13 May, 2013 [facility] [address] [id number] [address] [place] [address], [place] [address] 11 May, 2013 [facility] [address] [id number] [address] [place] [address] Apr, [facility] [address] [id number] [address] [place] [address], [place] [address] Apr, [facility] [address] [id number] [address] [place] [address] 18 Apr, 2013 [facility] [address] [id number] [address] [place] [address], [place] [address] Apr, [facility] [address] [id number] [address] [place] [address] 13 Apr, 2013 [facility] [address] [id number] [address] [place] [address], [place] [address] 08 Apr, 2013 [facility] [address] [id number] [address] [place] [address] 08 Apr, 2013 [facility] [address] [id number] [address] [place] [address] Apr, [facility] [address] [id number] [address] [place] [address] Apr, [facility] [address] [id number] [address] [place] [address] Apr, [facility] [address] [id number] [address] [place] [address] Apr, [facility] [address] [id number] [address] [place] [address] Mar, [facility] [address] [id number] [address] [place] [address] Mar, [facility] [address] [id number] [address] [place] [address] Mar, [facility] [address] [id number] [address] [place] [address] Mar, [facility] [address] [id number] [address] [place] [address], [place] [address] Mar, [facility] [address] [id number] [address] [place] [address], [place] [address] Mar, [facility] [address] [id number] [address] [place] [address], [place] [address] Mar, [facility] [address] [id number] [address] [place] [address], [place] [address] Mar, [facility] [address] [id number] [address] [place] [address], [place] [address] Mar, [facility] [address] [id number] [address] [place] [address], [place] [address] Mar, [facility] [address] [id number] [address] [place] [address], [place] [address] Mar, [facility] [address] [id number] [address] [place] [address], [place] [address] Mar, [facility] [address] [id number] [address] [place] [address], [place] [address] 30 Jan, 2013 [facility] [address] [id number] [address] [place] [address], [place] [address] Jan, [facility] [address] [id number] [address] [place] [address], [place] [address] Jan, [facility] [address] [id number] [address] [place] [address], [place] [address] Jan, [facility] [address] [id number] [address] [place] [address], [place] [address] Dec, [facility] [address] [id number] [address] [place] [address], [place] [address] Dec, [facility] [address] [id number] [address] [place] [address], [place] [address] Dec, [facility] [address] [id number] [address] [place] [address], [place] [address] Dec, [facility] [address] [id number] [address] [place] [address], [place] [address] Dec, [facility] [address] [id number] [address] [place] [address], [place] [address] Dec, [facility] [address] [id number] [address] [place] [address], [place] [address] Dec, [facility] [address] [id number] [address] [place] [address], [place] [address] Dec, [facility] [address] [id number] [address] [place] [address], [place] [address] Dec, [facility] [address] [id number] [address] [place] [address], [place] [address] Nov, [facility] [address] [id number] [address] [place] [address], [place] [address] Nov, [facility] [address] [id number] [address] [place] [address], [place] [address] Nov, [facility] [address] [id number] [address] [place] [address], [place] [address] Nov, [facility] [address] [id number] [address] [place] [address], [place] [address] Nov, [facility] [address] [id number] [address] [place] [address], [place] [address] Nov, [facility] [address] [id number] [address] [place] [address], [place] [address] Nov, [facility] [address] [id number] [address] [place] [address], [place] [address] Nov, [facility] [address] [id number] [address] [place] [address], [place] [address] Oct, [facility] [address] [id number] [address] [place] [address], [place] [address] Oct, [facility] [address] [id number] [address] [place] [address], [place] [address] Oct, [facility] [address] [id number] [address] [place] [address], [place] [address] Oct, [facility] [address] [id number] [address] [place] [address], [place] [address] Oct, [facility] [address] [id number] [address] [place] [address], [place] [address] Oct, [facility] [address] [id number] [address] [place] [address], [place] [address] Oct, [facility] [address] [id number] [address] [place] [address], [place] [address] Oct, [facility] [address] [id number] [address] [place] [address], [place] [address] Oct, [facility] [address] [id number] [address] [place] [address], [place] [address] 18 Oct, 2012 [facility] [address] [id number] [address] [place] [address], [place] [address] 17 Oct, 2012 [facility] [address] [id number] [address] [place] [address], [place] [address] 14 Oct, 2012 [facility] [address] [id number] [address] [place] [address], [place] [address] 07 Oct, 2012 [facility] [address] [id number] [address] [place] [address], [place] [address] 30 Sep, 2012 [facility] [address] [id number] [address] [place] [address], [place] [address] September, [facility] [address] [id number] [address] [place] [address], [place] [address] September, [facility] [address] [id number] [address] [place] [address], [place] [address] Aug, [facility] [address] [id number] [address] [place] [address], [place] [address] 24 Aug, 2012 [facility] [address] [id number] [address] [place] [address], [place] [address] 18 Aug, 2012 [facility] [address] [id number] [address] [place] [address], [place] [address] 18 Aug, 2012 [facility] [address] [id number] [address] [place] [address], [place] [address] 18 Aug, 2012 [facility] [address] [id number] [address] [place] [address], [place] [address] 08 Aug, 2012 [facility] [address] [id number] [address] [place] [address], [place] [address] 05 Aug, 2012 [facility] [address] [id number] [address] [place] [address], [place] [address] Jul, [facility] [address] [id number] [address] [place] [address], [place] [address] Jul, [facility] [address] [id number] [address] [place] [address], [place] [address] Jul, [facility] [address] [id number] [address] [place] [address], [place] [address] Jul, [facility] [address] [id number] [address] [place] [address], [place] [address] Jul, [facility] [address] [id number] [address] [place] [address], [place] [address] Jul, [facility] [address] [id number] [address] [place] [address], [place] [address] Jul, [facility] [address] [id number] [address] [place] [id number] Jul, [facility] [address] [id number] [address] [place] [address], [place] [address] Jul, [facility] [address] [id number] [address] [place] [address], [place] [address] Jul, [facility] [address] [id number] [address] [place] [address], [place] [address] Jul, [facility] [address] [id number] [address] [place] [address], [place] [address] 06 Jul, 2012 [facility] [address] [id number] [address] [place] [address], [place] [address] Jul, [facility] [address] [id number] [address] [place] [address], [place] [address] 24 Jun, 2012 [facility] [address] [id number] [address] [place] [address], [place] [address] Jun, [facility] [address] [id number] [address] [place] [address], [place] [address] Jun, [facility] [address] [id number] [address] [place] [address], [place] [address] 17 Jun, 2012 [facility] [address] [id number] [address] [place] [address], [place] [address] 15 Jun, 2012 [facility] [address] [id number] [address] [place] [address], [place] [address] Jun, [facility] [address] [id number] [address] [place] [address], [place] [address] Jun, [facility] [address] [id number] [address] [place] [address], [place] [address] May, [facility] [address] [id number] [address] [place] [address], [place] [address] May, [facility] [address] [id number] [address] [place] [address], [place] [address] May, [facility] [address] [id number] [address] [place] [address], [place] [address] May, [facility] [address] [id number] [address] [place] [address], [place] [address] May, [facility] [address] [id number] [address] [place] [address], [place] [address] 24 May, 2012 [facility] [address] [id number] [address] [place] [address], [place] [address] May, [facility] [address] [id number] [address] [place] [address], [place] [address] May, [facility] [address] [id number] [address] [place] [address], [place] [address] May, [facility] [address] [id number] [address] [place] [address], [place] [address] May, [facility] [address] [id number] [address] [place] [address], [place] [address] Apr, [facility] [address] [id number] [address] [place] [address], [place] [address] Apr, [facility] [address] [id number] [address] [place] [address], [place] [address] Apr, [facility] [address] [id number] [address] [place] [address], [place] [address] Apr, [facility] [address] [id number] [address] [place] [address], [place] [address] Apr, [facility] [address] [id number] [address] [place] [address], [place] [address] Apr, [facility] [address] [id number] [address] [place] [address], [place] [address] Apr, [facility] [address] [id number] [address] [place] [address], [place] [address] Apr, [facility] [address] [id number] [address] [place] [address], [place] [address] Apr, [facility] [address] [id number] [address] [place] [address], [place] [address] Apr, [facility] [address] [id number] [address] [place] [address], [place] [address] Apr, [facility] [address] [id number] [address] [place] [address], [place] [address] Apr, [facility] [address] [id number] [address] [place] [address], [place] [address] Mar, 2011 [facility] [address] [id number] [address] [place] [address], [place] [address] 31 Mar, 2011 [facility] [address] [id number] [address] [place] [id number] Mar, 2011 [facility] [address] [id number] [address] [place] [phone] Mar, 2011 [facility] [address] [id number] [address] [place] [address] Mar, 2011 [facility] [address] [id number] [address] [place] [address], [place] [address] Mar, 2011 [facility] [address] [id number] [address] [place] [address] Mar, 2011 [facility] [address] [id number] [address] [place] [phone] Mar, 2011 [facility] [address] [id number] [address] [place] [address] Mar, 2011 [facility] [address] [id number] [address] [place] [address] Mar, 2011 [facility] [address] [id number] [address] [place] [address] Mar, 2011 [facility] [address] [id number] [address] [place] [phone] Mar, 2011 [facility] [address] [id number] [address] [place] [address] Mar, 2011 [facility] [address] [id number] [address] [place] [address] Mar, [facility] [address] [id number] [address] [place] [address] Mar, [facility] [address] [id number] [address] [place] [address] Mar, [facility] [address] [id number] [facility] [place] [address] 25 Sep, 2011 [facility] [address] [id number] [address] [place] [address], [place] [address] 24 Sep, 2011 [facility] [address] [id number] [address] [place] [address], [place] [address] 22 Sep, 2011 [facility] [address] [id number] [address] [place] [address], [place] [address] 22 Sep, 2011 [facility] [address] [id number] [address] [place] [address], [place] [address] 21 Sep, 2011 [facility] [address] [id number] [address] [place] [address], [place] [address] 18 Sep, 2011 [facility] [address] [id number] [address] [place] [address], [place] [address] 14 Jan, 2011 [facility] [address] [id number] [address] [place] [address], [place] [address] 07 Jan, 2011 [facility] [address] [id number] [address] [place] [address], [place] [address] 15 Dec, 2011 [facility] [address] [id number] [address] [place] [address], [place] [address] 10 Dec, 2011 [facility] [address] [id number] [address] [place] [address], [place] [address] 09 Dec, 2011 [facility] [address] [id number] [address] [place] [address], [place] [address] 08 Dec, 2011 [facility] [address] [id number] [address] [place] [address], [place] [address] Dec, [facility] [address] [id number] [address] [place] [address], [place] [address] Dec, [facility] [address] [id number] [address] [place] [address], [place] [address] Dec, [facility] [address] [id number] [address] [place] [address], [place] [address] Nov, [facility] [address] [id number] [address] [place] [address], [place] [address] 06 Oct, 2011 [facility] [address] [id number] [address] [place] [address], [place] [address] 05 Aug, 2011 [facility] [address] [id number] [address] [place] [address], [place] [address] 22 Jul, 2011 [facility] [address] [id number] [address] [place] [address], [place] [address] 19 Jul, 2011 [facility] [address] [id number] [address] [place] [address], [place] [address] 16 Jul, 2011 [facility] [address] [id number] [address] [place] [address], [place] [address] 14 Jul, 2011 [facility] [address] [id number] [address] [place] [address], [place] [address] 07 Jul, 2011 [facility] [address] [id number] [address] [place] [address], [place] [address] Jul, [facility] [address] [id number] [address] [place] [address], [place] [address] Jul, [facility] [address] [id number] [address] [place] [address], [place] [address] 15 Jul, 2011 [facility] [address] [id number] [address] [place] [address], [place] [address] Jul, [facility] [address] [id number] [address] [place] [address], [place] [address] Jul, [facility] [address] [id number] [address] [place] [address], [place] [address] Jul, [facility] [address] [id number] [address] [place] [address], [place] [address] Jun, [facility] [address] [id number] [address] [place] [address], [place] [address] Jun, [facility] [address] [id number] [address] [place] [address], [place] [address] 13 Jun, 2011 [facility] [address] [id number] [address] [place] [address], [place] [address] 11 Jun, 2011 [facility] [address] [id number] [address] [place] [address], [place] [address] 06 Jun, 2011 [facility] [address] [id number] [address] [place] [address], [place] [address] Jun, [facility] [address] [id number] [address] [place] [address], [place] [address] Jun, [facility] [address] [id number] [address] [place] [address], [place] [address] May, [facility] [address] [id number] [address] [place] [address], [place] [address] May, [facility] [address] [id number] [address] [place] [address], [place] [address] May, [facility] [address] [id number] [address] [place] [address], [place] [address] May, [facility] [address] [id number] [address] [place] [address], [place] [address] May, [facility] [address] [id number] [address] [place] [address], [place] [address] May, [facility] [address] [id number] [address] [place] [address], [place] [address] May, [facility] [address] [id number] [address] [place] [address], [place] [address] May, [facility] [address] [id number] [address] [place] [address], [place] [address] 06 May, 2011 [facility] [address] [id number] [address] [place] [address], [place] [address] 03 May, 2011 [facility] [address] [id number] [address] [place] [address], [place] [address] 15 Apr, 2011 [facility] [address] [id number] [address] [place] [address] Apr, [facility] [address] [id number] [address] [place] [address] Apr, [facility] [address] [id number] [address] [place] [address] Apr, [facility] [address] [facility] [id number] [address] [place] [address] Mar, [facility] [address] [id number] [address] [place] [address] Mar, [facility] [address] [facility] [id number] [address] [place] [address] Mar, [facility] [address] [facility] [id number] [address] [place] [address] Mar, IMMUNIZATIONS No Known Immunizations SOCIAL HISTORY [...] History Colonoscopy Hospitalization History surgeries Hospitalization History [facility] for seizures 03/24/16 Hospitalization History [facility] for kidney stones/hypertension 0 12/2017
--- OUTSIDE RECORDS SUMMARY | 2020-01-03 17:46 | XMS REPORT ---
Author Author Pattie Moffett Doctor Organization [facility] Address Unknown Phone Unavailable Care Team Providers Care Char Filter Operator Helper Name Role Phone Migration, Doctor Unavailable Unavailable PROBLEMS Type Condition ICD9-CM Code [id number] Code Onset Dates Condition S tatus SNOMED Code Problem FRANCIS (generalized anxiety disorder) F41.1 Active 84713622 Problem Thoracic disc herniation M51.24 Activ e 737303921 Problem Major depressive disorder in partial remission F32 .4 Active 28295767 Problem Seizure disorder G40.909 Active 128 296244 Problem Conversion disorder (or hysterical neurosis, conversion ty pe) F44.9 Active 80004328 Problem Constipation, unspecified constipation type K59.00 Active 82484001 Problem Mild episode of recurrent major depressive disorder F33.0 Active 884030117 Problem Restless leg syndrome G25.81 Active 23793178 Problem Nonadherence to medication Z91.14 Act vivian 341481998 Problem Slow transit constipation K59.01 Acti ve 64379943 Problem Atrophic vaginitis N95.2 Active 5 0602271 Problem Paroxysmal tachycardia I47.9 Active 31927107 Problem Other chronic pain G89.29 Active 8 6280457 Problem Mild intermittent asthma without complication J45. 20 Active 850366033 Problem Obesity (BMI 30.0-34.9) E66.9 Active [id number] Problem High blood pressure I10 Active 26257421 ALLERGIES No Information ENCOUNTERS Encounter Location Date Diagnosis [facility] [address] [facility] [id number] [place] [address] Nov, [facility] [address] [facility] [id number] [address] [place] [phone] Nov, [facility] [address] [facility] [id number] [address] [place] [phone] Nov, [facility] [address] [id number] [place] [id number] Oct, Breast cancer screening Z12.[address] [id number] [address] 08 Oct, 2019 Breast cancer screening Z12. 39 [facility] [address] [id number] [address] [place] [phone] Oct, [facility] [address] [id number] [address] [place] [phone] Oct, [facility] [address] [facility] [id number] [address] [place] [phone] September, [facility] [address] [id number] [address] [place] [phone] September, [facility] [address] [facility] [id number] [address] [place] [phone] September, Well woman exam with routine gynecological exam Z01.419 and Atrophic vaginitis N95.2 [facility] [address] [facility] [id number] [address] [place] [phone] September, Major depressive disorder in partial remission F32.4 ; FRANCIS (generalized anxiety disorder) F41.1 ; Restless leg syndrome G25.81 and Nonadherence to medication Z91.14 [facility] [address] [facility] [id number] [address] [place] [phone] September, [facility] [address] [id number] [address] [place] [id number] Aug, [facility] [address] [id number] [address] [place] [id number] Aug, Dental examination Z01.20 [facility] [address] [id number] [address] [place] [id number] Aug, Dental examination Z01.20 an d Caries K02.9 [facility] [address] [id number] [address] [place] [phone] Aug, [facility] [address] [id number] [address] [place] [phone] Aug, [facility] [address] [id number] [address] [place] [phone] Aug, Other chronic pain G89.29 an d Back muscle spasm M62.830 [facility] [address] [id number] [address] [place] [phone] 07 Aug, 2019 [facility] [address] [id number] [address] [place] [phone] Aug, Major depressive disorder in partial remission F32.4 ; FRANCIS (generalized anxiety disorder) F41.1 ; Restless leg syndrome G25.81 and Nonadherence to medication Z91.14 [facility] [address] [id number] [address] [place] [phone] Aug, [facility] [address] [id number] [address] [place] [phone] Jul, [facility] [address] [id number] [address] [place] [phone] Jul, [facility] [address] [id number] [address] [place] [phone] Jul, Major depressive disorder in partial remission F32.4 ; FRANCIS (generalized anxiety disorder) F41.1 ; Restless leg syndrome G25.81 and High blood pressure I10 [facility] [address] [id number] [address] [place] [phone] Jul, [facility] [address] [id number] [address] [place] [phone] Jul, [facility] [address] [id number] [address] [place] [phone] Jun, [facility] [address] [id number] [address] [place] [phone] May, [facility] [address] [id number] [address] [place] [phone] Apr, [facility] [address] [id number] [address] [place] [phone] Apr, [facility] [address] [id number] [address] [place] [phone] Mar, [facility] [address] [facility] [id number] [address] [place] [phone] Mar, Major depressive disorder in partial remission F32.4 ; FRANCIS (generalized anxiety disorder) F41.1 and Restless leg syndrome G25.81 [facility] [address] [id number] [address] [place] [phone] Mar, Obesity (BMI 30.0-34.9) E66. 9 [facility] [address] [id number] [address] [place] [phone] Jan, [facility] [address] [facility] [id number] [address] [place] [phone] Jan, Burn T30.0 [facility] [address] [id number] [address] [place] [phone] Dec, [facility] [address] [id number] [address] [place] [phone] Nov, [facility] [address] [facility] [id number] [address] [place] [phone] Nov, [facility] [address] [id number] [address] [place] [id number] Nov, Dental examination Z01.20 [facility] [address] [id number] [address] [place] [phone] September, [facility] [address] [id number] [address] [place] [id number] September, Decay, teeth K02.9 and Denta l examination Z01.20 [facility] [address] [id number] [address] [place] [id number] September, Dental examination Z01.20 [facility] [address] [id number] [address] [place] [phone] September, FRANCIS (generalized anxiety dis order) F41.1 ; Major depressive disorder in partial remission F32.4 and Restless leg syndrome G25.81 [facility] [address] [facility] [id number] [address] [place] [phone] Aug, [facility] [address] [facility] [id number] [address] [place] [phone] Jul, [facility] [address] [facility] [id number] [address] [place] [phone] Jul, Encounter to discuss test re sults Z71.2 [place] [address] [facility] [id number] [address] [place] [phone] Jul, Pelvic pain R10.2 ; Screenin g for breast cancer Z12.31 and Obesity (BMI 30.0-34.9) E66.9 [place] [address] [facility] [id number] [address] [place] [phone] Jul, Mild intermittent asthma wit hout complication J45.20 [place] [address] [facility] [id number] [address] [place] [phone] Jul, Major depressive disorder in partial remission F32.4 and FRANCIS (generalized anxiety disorder) F41.1 [place] [address] [facility] [id number] [address] [place] [phone] Jul, [facility] [address] [facility] [id number] [address] [place] [phone] Jun, [facility] [address] [facility] [id number] [address] [place] [phone] May, Major depressive disorder in partial remission F32.4 ; FRANCIS (generalized anxiety disorder) F41.1 and Restless leg syndrome G25.81 [facility] [address] [facility] [id number] [address] [place] [phone] Apr, [facility] [address] [facility] [id number] [address] [place] [phone] Mar, [facility] [address] [id number] [address] [place] [phone] 21 Jan, 2018 Pain in thoracic spine M54.6 and Other chronic pain G89.29 [facility] [address] [id number] [address] [place] [phone] 14 Jan, 2018 [facility] [address] [id number] [address] [place] [phone] 11 Jan, 2018 Mild episode of recurrent ma saray depressive disorder F33.0 ; FRANCIS (generalized anxiety disorder) F41.1 and Restless leg syndrome G25.81 [facility] [address] [id number] [address] [place] [phone] Dec, [facility] [address] [id number] [address] [place] [id number] Dec, Hospital discharge follow-up Z09 [facility] [address] [id number] [address] [place] [phone] Nov, [facility] [address] [id number] [address] [place] [phone] Nov, [facility] [address] [id number] [address] [place] [phone] September, [facility] [address] [id number] [address] [place] [phone] September, [facility] [address] [id number] [address] [place] [id number] September, Major depressive disorder in partial remission F32.4 ; FRANCIS (generalized anxiety disorder) F41.1 and Restless leg syndrome G25.81 [facility] [address] [id number] [address] [place] [phone] September, [facility] [address] [id number] [address] [place] [phone] Jul, [facility] [address] [id number] [address] [place] [id number] 02 Mar, 2018 Dorsalgia, unspecified M54.9 [facility] [address] [id number] [address] [place] [phone] Jul, Mild episode of recurrent ma saray depressive disorder F33.0 and FRANCIS (generalized anxiety disorder) F41.1 [facility] [address] [id number] [address] [place] [phone] May, [facility] [address] [id number] [address] [place] [phone] May, Dysuria R30.0 and Acute cyst itis with hematuria N30.01 [place] [address] [id number] [address] [place] [phone] Apr, [facility] [address] [id number] [address] [place] [phone] Apr, Major depressive disorder in partial remission F32.4 and FRANCIS (generalized anxiety disorder) F41.1 [place] [address] [id number] [address] [place] [id number] Mar, Paroxysmal tachycardia I47.9 [place] [address] [id number] [address] [place] [phone] Mar, Paroxysmal tachycardia I47.9 and Pain of left lower extremity M79.605 [facility] [address] [id number] [address] [place] [phone] Mar, FRANCIS (generalized anxiety dis order) F41.1 and Major depressive disorder in partial remission F32.4 [facility] [address] [id number] [address] [place] [phone] Jan, [facility] [address] [id number] [address] [place] [phone] 14 Jan, 2017 [facility] [address] [id number] [address] [place] [phone] Jan, [facility] [address] [id number] [address] [place] [phone] Dec, Constipation, unspecified co nstipation type K59.00 [facility] [address] [id number] [address] [place] [phone] Dec, [facility] [address] [id number] [address] [place] [phone] Nov, [facility] [address] [id number] [address] [place] [id number] Nov, Major depressive disorder in partial remission F32.4 and FRANCIS (generalized anxiety disorder) F41.1 [facility] [address] [id number] [address] [place] [phone] Oct, Abdominal pain R10.9 and Slo w transit constipation K59.01 [place] [address] [id number] [address] [place] [phone] Aug, Major depressive disorder in partial remission F32.4 ; FRANCIS (generalized anxiety disorder) F41.1 ; Conversion disorder (or hysterical neurosis, conversion type) F44.9 ; Dorsalgia, unspecified M54.9 and Long-term use of high-risk medication Z79.899 [place] [address] [id number] [address] [place] [phone] Aug, [place] [address] [id number] [address] [place] [phone] Jul, Paroxysmal tachycardia I47.9 [facility] [address] [id number] [address] [place] [phone] Jul, Paroxysmal tachycardia I47.9 [place] [address] [id number] [address] [place] [phone] Jun, [facility] [address] [facility] [id number] [address] [place] [phone] Jun, Major depressive disorder in partial remission F32.4 ; FRANCIS (generalized anxiety disorder) F41.1 and Conversion disorder (or hysterical neurosis, conversion type) F44.9 [facility] [address] [facility] [id number] [address] [place] [phone] May, Pelvic pain R10.2 [facility] [address] [facility] [id number] [address] [place] [phone] 30 Apr, 2016 Gastroenteritis K52.9 [facility] [address] [facility] [id number] [address] [place] [phone] 17 Apr, 2016 Blood in urine R31.9 and Acu te cystitis with hematuria N30.01 [facility] [address] [place] [id number] [place] [phone] 17 Apr, 2016 Major depressive disorder in partial remission F32.4 ; FRANCIS (generalized anxiety disorder) F41.1 and Conversion disorder (or hysterical neurosis, conversion type) F44.9 [place] [address] [place] [id number] [place] [phone] Apr, [place] [address] [phone] Apr, Abnormal mammogram R92.8 [place] [address] [place] [id number] [place] [phone] Mar, [place] [address] [place] [id number] [place] [phone] Mar, Gastroenteritis K52.9 and Se izure disorder G40.909 [place] [address] [place] [id number] [address] [place] [phone] Dec, [facility] [address] [place] [id number] [address] [place] [phone] Dec, Other headache syndrome G44. 89 [place] [address] [place] [id number] [address] [place] [phone] Dec, [facility] [address] [facility] [id number] [address] [place] [phone] Dec, Thoracic disc herniation M51 .24 [place] [address] [place] [id number] [address] [place] [phone] Dec, [facility] [address] [id number] [address] [place] [phone] Nov, Major depressive disorder in partial remission F32.4 and FRANCIS (generalized anxiety disorder) F41.1 [facility] [address] [id number] [address] [place] [phone] Nov, [facility] [address] [id number] [address] [place] [phone] Nov, Dorsalgia, unspecified M54.9 [facility] [address] [id number] [address] [place] [phone] Oct, [facility] [address] [id number] [address] [place] [phone] September, [facility] [address] [id number] [address] [place] [phone] Aug, [facility] [address] [id number] [address] [place] [phone] Aug, Major depressive disorder in partial remission F32.4 and FRANCIS (generalized anxiety disorder) F41.1 [facility] [address] [id number] [address] [place] [phone] Aug, [facility] [address] [id number] [address] [place] [phone] Jul, Abnormal mammogram R92.8 [facility] [address] [id number] [address] [place] [phone] Jul, [facility] [address] [id number] [address] [place] [phone] Jul, [facility] [address] [id number] [address] [place] [phone] 14 Jul, 2015 [facility] [address] [id number] [address] [place] [phone] Jul, [facility] [address] [id number] [address] [place] [id number] Jul, [facility] [address] [id number] [address] [place] [phone] Jul, [facility] [address] [facility] [id number] [address] [place] [phone] Jun, Major depressive disorder in partial remission F32.4 and FRANCIS (generalized anxiety disorder) F41.1 [facility] [address] [id number] [address] [place] [phone] Jun, [facility] [address] [id number] [address] [place] [phone] May, [facility] [address] [id number] [address] [place] [phone] Apr, [facility] [address] [facility] [id number] [address] [place] [phone] Mar, Major depressive disorder, r ecurrent episode, moderate F33.1 ; PTSD (post-traumatic stress disorder) F43.10 and FRANCIS (generalized anxiety disorder) F41.1 [facility] [address] [id number] [address] [place] [phone] Mar, [facility] [address] [id number] [address] [place] [id number] Mar, [facility] [address] [id number] [address] [place] [phone] Mar, [facility] [address] [id number] [address] [place] [id number] Mar, [facility] [address] [id number] [address] [place] [phone] Jan, [facility] [address] [id number] [address] [place] [phone] Jan, [facility] [address] [id number] [address] [place] [phone] Jan, [facility] [address] [id number] [address] [place] [id number] 14 Jan, 2015 Thoracic disc herniation 722 .11 [facility] [address] [id number] [address] [place] [phone] Dec, [facility] [address] [id number] [address] [place] [phone] Dec, [facility] [address] [id number] [address] [place] [phone] Dec, [facility] [address] [id number] [address] [place] [phone] Nov, [facility] [address] [id number] [address] [place] [phone] Nov, Generalized anxiety disorder 300.02 ; Posttraumatic stress disorder 309.81 and Major depressive disorder, recurrent episode, moderate 296.32 [facility] [address] [id number] [address] [place] [phone] Nov, [facility] [address] [id number] [address] [place] [phone] Nov, [facility] [address] [id number] [address] [place] [phone] Oct, [facility] [address] [id number] [address] [place] [phone] 05 Oct, 2014 [facility] [address] [id number] [address] [place] [phone] Oct, [facility] [address] [id number] [address] [place] [phone] September, [facility] [address] [id number] [address] [place] [phone] September, [facility] [address] [facility] [id number] [address] [place] [phone] Aug, [facility] [address] [id number] [address] [place] [phone] Aug, [facility] [address] [id number] [address] [place] [address], [place] [address] Jul, [facility] [address] [id number] [address] [place] [address], [place] [address] Jul, [facility] [address] [id number] [address] [place] [address], [place] [id number] 17 Jul, 2014 [facility] [address] [id number] [address] [place] [address], [place] [address] 17 Jul, 2014 [facility] [address] [id number] [address] [place] [address], [place] [address] 16 Jul, 2014 [facility] [address] [id number] [address] [place] [address], [place] [address] Jul, [facility] [address] [id number] [address] [place] [address], [place] [id number] Jul, [facility] [address] [id number] [address] [place] [address], [place] [address] Jul, [facility] [address] [id number] [address] [place] [address], [place] [address] Jul, [facility] [address] [id number] [address] [place] [address], [place] [address] Jul, [facility] [address] [id number] [address] [place] [address], [place] [address] Jun, [facility] [address] [id number] [address] [place] [id number] Jun, [facility] [address] [id number] [address] [place] [address], [place] [address] Jun, [facility] [address] [id number] [address] [place] [address], [place] [address] May, [facility] [address] [id number] [address] [place] [address], [place] [address] Apr, [facility] [address] [id number] [address] [place] [address], [place] [address] Apr, [facility] [address] [id number] [address] [place] [address], [place] [address] Apr, [facility] [address] [id number] [address] [place] [address], [place] [address] Apr, [facility] [address] [id number] [address] [place] [address], [place] [address] Apr, [facility] [address] [id number] [address] [place] [address], [place] [address] Apr, [facility] [address] [id number] [address] [place] [address], [place] [address] Apr, [facility] [address] [id number] [address] [place] [address], [place] [address] Apr, [facility] [address] [id number] [address] [place] [address], [place] [address] Mar, [facility] [address] [id number] [address] [place] [address], [place] [address] Mar, [facility] [address] [id number] [address] [place] [address], [place] [address] Mar, [facility] [address] [id number] [address] [place] [address], [place] [address] Mar, [facility] [address] [id number] [address] [place] [address], [place] [address] Mar, [facility] [address] [id number] [address] [place] [address], [place] [address] Mar, [facility] [address] [id number] [address] [place] [address], [place] [address] Mar, [facility] [address] [id number] [address] [place] [address], [place] [address] Mar, [facility] [address] [id number] [address] [place] [address], [place] [address] Mar, [facility] [address] [id number] [address] [place] [address], [place] [address] Mar, 2013 [facility] [address] [id number] [address] [place] [address], [place] [address] 17 Mar, 2014 [facility] [address] [id number] [address] [place] [address], [place] [address] 14 Mar, 2014 [facility] [address] [id number] [address] [place] [address], [place] [address] 14 Mar, 2014 [facility] [address] [id number] [address] [place] [address], [place] [address] 07 Mar, 2014 [facility] [address] [id number] [address] [place] [address], [place] [address] 07 Mar, 2014 [facility] [address] [id number] [address] [place] [address], [place] [address] Mar, [facility] [address] [id number] [address] [place] [address], [place] [address] Mar, [facility] [address] [id number] [address] [place] [address], [place] [address] 19 Jan, 2013 [facility] [address] [id number] [address] [place] [address], [place] [address] 19 Jan, 2013 [facility] [address] [id number] [address] [place] [address], [place] [address] 09 Sep, 2013 [facility] [address] [id number] [address] [place] [address], [place] [address] 09 Sep, 2013 [facility] [address] [id number] [address] [place] [address], [place] [address] 05 Sep, 2013 [facility] [address] [id number] [address] [place] [address], [place] [address] 05 Sep, 2013 [facility] [address] [id number] [address] [place] [address], [place] [address] 05 Sep, 2013 [facility] [address] [id number] [address] [place] [address], [place] [address] 05 Jan, 2013 [facility] [address] [id number] [address] [place] [address], [place] [address] Jan, 2013 [facility] [address] [id number] [address] [place] [address], [place] [address] Jan, [facility] [address] [id number] [address] [place] [address], [place] [address] Jan, 2013 [facility] [address] [id number] [address] [place] [address], [place] [address] Jan, 2013 [facility] [address] [id number] [address] [place] [address], [place] [address] Jan, [facility] [address] [id number] [address] [place] [address], [place] [address] Dec, [facility] [address] [id number] [address] [place] [address], [place] [address] Dec, [facility] [address] [id number] [address] [place] [address], [place] [address] Dec, [facility] [address] [id number] [address] [place] [address], [place] [address] Dec, [facility] [address] [id number] [address] [place] [address], [place] [address] Dec, [facility] [address] [id number] [address] [place] [address], [place] [address] Dec, [facility] [address] [place] [id number] Dec, [facility] [address] [place] [id number] Dec, [facility] [address] [id number] [address] [place] [address], [place] [address] Dec, [facility] [address] [id number] [address] [place] [address], [place] [address] Dec, [facility] [address] [id number] [address] [place] [address], [place] [address] Dec, [facility] [address] [id number] [facility] [place] [place] [address] Dec, [facility] [address] [id number] [facility] [place] [address] Nov, [facility] [address] [id number] [facility] [place] [place] [address] Nov, [facility] [address] [id number] [address] [place] [address], [place] [address] Nov, [facility] [address] [id number] [facility] [place] [place] [address] Nov, [facility] [address] [id number] [address] [place] [address], [place] [address] Nov, [facility] [address] [id number] [address] [place] [address], [place] [address] Nov, [facility] [address] [id number] [address] [place] [address], [place] [address] Nov, [facility] [address] [id number] [address] [place] [address], [place] [address] Nov, [facility] [address] [id number] [address] [place] [address], [place] [address] Nov, [facility] [address] [id number] [address] [place] [address], [place] [address] Nov, [facility] [address] [id number] [address] [place] [address], [place] [address] Nov, [facility] [address] [id number] [address] [place] [address], [place] [address] Nov, [facility] [address] [id number] [address] [place] [address], [place] [address] Nov, [facility] [address] [id number] [address] [place] [address], [place] [address] Oct, [facility] [address] [id number] [facility] [place] [place] [address] Oct, [facility] [address] [id number] [address] [place] [address], [place] [address] Oct, [facility] [address] [id number] [address] [place] [address], [place] [address] Oct, [facility] [address] [id number] [address] [place] [address], [place] [address] Oct, [facility] [address] [id number] [address] [place] [address], [place] [address] Oct, [facility] [address] [id number] [address] [place] [address], [place] [address] Oct, [facility] [address] [id number] [address] [place] [address], [place] [address] Oct, [facility] [address] [id number] [address] [place] [address], [place] [address] Oct, [facility] [address] [id number] [address] [place] [address], [place] [address] Oct, [facility] [address] [id number] [address] [place] [address], [place] [address] Oct, [facility] [address] [id number] [address] [place] [address], [place] [address] Oct, [facility] [address] [id number] [address] [place] [address], [place] [address] September, [facility] [address] [id number] [address] [place] [address], [place] [address] September, [facility] [address] [id number] [address] [place] [address], [place] [address] September, [facility] [address] [id number] [address] [place] [address], [place] [address] September, [facility] [address] [id number] [address] [place] [address], [place] [address] Aug, [facility] [address] [id number] [facility] [place] [place] [address] Aug, [facility] [address] [id number] [facility] [place] [address] Aug, [facility] [address] [id number] [facility] [place] [place] [address] Aug, [facility] [address] [id number] [address] [place] [address], [place] [address] Aug, [facility] [address] [id number] [facility] [place] [place] [address] Aug, [facility] [address] [id number] [address] [place] [address], [place] [address] Aug, [facility] [address] [id number] [address] [place] [address], [place] [address] Jul, [facility] [address] [id number] [address] [place] [address], [place] [address] Jul, [facility] [address] [id number] [address] [place] [address], [place] [address] Jul, [facility] [address] [id number] [address] [place] [address], [place] [address] Jul, [facility] [address] [id number] [address] [place] [address], [place] [address] Jul, [facility] [address] [id number] [address] [place] [address], [place] [address] Jul, [facility] [address] [id number] [address] [place] [address], [place] [address] 18 Jul, 2013 [facility] [address] [id number] [address] [place] [address], [place] [address] Jul, [facility] [address] [id number] [address] [place] [address], [place] [address] 18 Jul, 2013 [facility] [address] [id number] [address] [place] [address], [place] [address] 18 Jul, 2013 [facility] [address] [id number] [address] [place] [address], [place] [address] 18 Jul, 2013 [facility] [address] [id number] [address] [place] [address], [place] [address] 18 Jul, 2013 [facility] [address] [id number] [address] [place] [address], [place] [address] 14 Jul, 2013 [facility] [address] [id number] [address] [place] [address], [place] [address] 14 Jul, 2013 [facility] [address] [id number] [address] [place] [address], [place] [address] Jul, [facility] [address] [id number] [address] [place] [address], [place] [address] 11 Jul, 2013 [facility] [address] [id number] [address] [place] [address], [place] [address] Jul, [facility] [address] [id number] [address] [place] [address], [place] [address] 11 Jul, 2013 [facility] [address] [id number] [address] [place] [address], [place] [address] Jun, [facility] [address] [id number] [address] [place] [address], [place] [address] 31 Jun, 2013 [facility] [address] [id number] [address] [place] [address], [place] [address] Jun, [facility] [address] [id number] [address] [place] [address], [place] [address] 15 Jun, 2013 [facility] [address] [id number] [address] [place] [address], [place] [address] 14 Jun, 2013 [facility] [address] [id number] [address] [place] [address], [place] [address] 14 Jun, 2013 [facility] [address] [id number] [address] [place] [address], [place] [address] [address], [address] [facility] [address] [id number] [address] [place] [address], [place] [address] 14 Jun, 2013 [facility] [address] [id number] [address] [place] [address], [place] [address] [address], [address] [facility] [address] [id number] [address] [place] [address], [place] [address] 14 Jun, 2013 [facility] [address] [id number] [address] [place] [address], [place] [address] [address], [address] [facility] [address] [id number] [address] [place] [address], [place] [address] 27 May, 2013 [facility] [address] [id number] [address] [place] [address], [place] [address] [address], [address] [facility] [address] [id number] [address] [place] [address], [place] [address] [address], [address] [facility] [address] [id number] [address] [place] [address], [place] [address] [address], [address] [facility] [address] [id number] [address] [place] [address], [place] [address] [address], [address] [facility] [address] [id number] [address] [place] [address], [place] [address] [address], [address] [facility] [address] [id number] [address] [place] [address], [place] [address] [address], [address] [facility] [address] [id number] [address] [place] [address], [place] [address] [address], [address] [facility] [address] [id number] [address] [place] [address], [place] [address] 13 May, 2013 [facility] [address] [id number] [address] [place] [address], [place] [address] [address], [address] [facility] [address] [id number] [address] [place] [address], [place] [address] 11 May, 2013 [facility] [address] [id number] [address] [place] [address] Apr, [facility] [address] [id number] [address] [place] [address], [place] [address] Apr, [facility] [address] [id number] [address] [place] [address] 18 Apr, 2013 [facility] [address] [id number] [address] [place] [address], [place] [address] Apr, [facility] [address] [id number] [address] [place] [address] 13 Apr, 2013 [facility] [address] [id number] [address] [place] [address], [place] [address] 08 Apr, 2013 [facility] [address] [id number] [address] [place] [address] 08 Apr, 2013 [facility] [address] [id number] [address] [place] [address] Apr, [facility] [address] [id number] [address] [place] [address] Apr, [facility] [address] [id number] [address] [place] [address] Apr, [facility] [address] [id number] [address] [place] [address] Apr, [facility] [address] [id number] [address] [place] [address] Mar, [facility] [address] [id number] [address] [place] [address] Mar, [facility] [address] [id number] [address] [place] [address] Mar, [facility] [address] [id number] [address] [place] [id number] Mar, [facility] [address] [id number] [address] [place] [address], [place] [address] Mar, [facility] [address] [id number] [address] [place] [address], [place] [address] Mar, [facility] [address] [id number] [address] [place] [address], [place] [address] Mar, [facility] [address] [id number] [address] [place] [address], [place] [address] Mar, [facility] [address] [id number] [address] [place] [address], [place] [address] Mar, [facility] [address] [id number] [address] [place] [address], [place] [address] Mar, [facility] [address] [id number] [address] [place] [address], [place] [address] Mar, [facility] [address] [id number] [address] [place] [address], [place] [address] Mar, [facility] [address] [id number] [address] [place] [address], [place] [address] 30 Jan, 2013 [facility] [address] [id number] [address] [place] [address], [place] [address] Jan, [facility] [address] [id number] [address] [place] [address], [place] [address] Jan, [facility] [address] [id number] [address] [place] [address], [place] [address] Jan, [facility] [address] [id number] [address] [place] [address], [place] [address] Dec, [facility] [address] [id number] [address] [place] [address], [place] [address] Dec, [facility] [address] [id number] [address] [place] [address], [place] [address] Dec, [facility] [address] [id number] [address] [place] [address], [place] [address] Dec, [facility] [address] [id number] [address] [place] [address], [place] [address] Dec, [facility] [address] [id number] [address] [place] [address], [place] [address] Dec, [facility] [address] [id number] [address] [place] [address], [place] [address] Dec, [facility] [address] [id number] [address] [place] [address], [place] [address] Dec, [facility] [address] [id number] [address] [place] [address], [place] [address] Dec, [facility] [address] [id number] [address] [place] [address], [place] [address] Nov, [facility] [address] [id number] [address] [place] [address], [place] [address] Nov, [facility] [address] [id number] [address] [place] [address], [place] [address] Nov, [facility] [address] [id number] [address] [place] [address], [place] [address] Nov, [facility] [address] [id number] [address] [place] [address], [place] [address] Nov, [facility] [address] [id number] [address] [place] [address], [place] [address] Nov, [facility] [address] [id number] [address] [place] [address], [place] [address] Nov, [facility] [address] [id number] [address] [place] [address], [place] [address] Nov, [facility] [address] [id number] [address] [place] [address], [place] [address] Oct, [facility] [address] [id number] [address] [place] [address], [place] [address] Oct, [facility] [address] [id number] [address] [place] [address], [place] [address] Oct, [facility] [address] [id number] [address] [place] [address], [place] [address] Oct, [facility] [address] [id number] [address] [place] [address], [place] [address] Oct, [facility] [address] [id number] [address] [place] [address], [place] [address] Oct, [facility] [address] [id number] [address] [place] [address], [place] [address] Oct, [facility] [address] [id number] [address] [place] [address], [place] [address] Oct, [facility] [address] [id number] [address] [place] [address], [place] [address] Oct, [facility] [address] [id number] [address] [place] [address], [place] [address] 18 Oct, 2012 [facility] [address] [id number] [address] [place] [address], [place] [address] 17 Oct, 2012 [facility] [address] [id number] [address] [place] [address], [place] [address] 14 Oct, 2012 [facility] [address] [id number] [address] [place] [address], [place] [address] 07 Oct, 2012 [facility] [address] [id number] [address] [place] [address], [place] [address] 30 Sep, 2012 [facility] [address] [id number] [address] [place] [address], [place] [address] September, [facility] [address] [id number] [address] [place] [address], [place] [address] September, [facility] [address] [id number] [address] [place] [address], [place] [address] Aug, [facility] [address] [id number] [address] [place] [address], [place] [address] 24 Aug, 2012 [facility] [address] [id number] [address] [place] [address], [place] [address] 18 Aug, 2012 [facility] [address] [id number] [address] [place] [address], [place] [address] 18 Aug, 2012 [facility] [address] [id number] [address] [place] [address], [place] [address] 18 Aug, 2012 [facility] [address] [id number] [address] [place] [address], [place] [address] 08 Aug, 2012 [facility] [address] [id number] [address] [place] [address], [place] [address] 05 Aug, 2012 [facility] [address] [id number] [address] [place] [address], [place] [address] Jul, [facility] [address] [id number] [address] [place] [address], [place] [address] Jul, [facility] [address] [id number] [address] [place] [address], [place] [address] Jul, [facility] [address] [id number] [address] [place] [address], [place] [address] Jul, [facility] [address] [address] [id number] [address] [place] [address], [place] [address] Jul, [facility] [address] [id number] [address] [place] [address], [place] [address] Jul, [facility] [address] [id number] [address] [place] [address], [place] [address] Jul, [facility] [address] [id number] [address] [place] [id number] Jul, [facility] [address] [id number] [address] [place] [address], [place] [address] Jul, [facility] [address] [id number] [address] [place] [address], [place] [address] Jul, [facility] [address] [id number] [address] [place] [address], [place] [address] Jul, [facility] [address] [id number] [address] [place] [address], [place] [address] 06 Jul, 2012 [facility] [address] [id number] [address] [place] [address], [place] [address] Jul, [facility] [address] [id number] [address] [place] [address], [place] [address] 24 Jun, 2012 [facility] [address] [id number] [address] [place] [address], [place] [address] Jun, [facility] [address] [id number] [address] [place] [address], [place] [address] Jun, [facility] [address] [id number] [address] [place] [address], [place] [address] 17 Jun, 2012 [facility] [address] [id number] [address] [place] [address], [place] [address] 15 Jun, 2012 [facility] [address] [id number] [address] [place] [address], [place] [address] Jun, [facility] [address] [id number] [address] [place] [address], [place] [address] Jun, [facility] [address] [id number] [address] [place] [address], [place] [address] May, [facility] [address] [id number] [address] [place] [address], [place] [address] May, [facility] [address] [id number] [address] [place] [address], [place] [address] May, [facility] [address] [id number] [address] [place] [address], [place] [address] May, [facility] [address] [id number] [address] [place] [address], [place] [address] May, [facility] [address] [id number] [address] [place] [address], [place] [address] 24 May, 2012 [facility] [address] [id number] [address] [place] [address], [place] [address] May, [facility] [address] [id number] [address] [place] [address], [place] [address] May, [facility] [address] [id number] [address] [place] [address], [place] [address] May, [facility] [address] [id number] [address] [place] [address], [place] [address] May, [facility] [address] [id number] [address] [place] [address], [place] [address] Apr, [facility] [address] [id number] [address] [place] [address], [place] [address] Apr, [facility] [address] [id number] [address] [place] [address], [place] [address] Apr, [facility] [address] [id number] [address] [place] [address], [place] [address] Apr, [facility] [address] [id number] [address] [place] [address], [place] [address] Apr, [facility] [address] [id number] [address] [place] [address], [place] [address] Apr, [facility] [address] [id number] [address] [place] [address], [place] [address] Apr, [facility] [address] [id number] [address] [place] [address], [place] [address] Apr, [facility] [address] [id number] [address] [place] [address], [place] [address] Apr, [facility] [address] [id number] [address] [place] [address], [place] [address] Apr, [facility] [address] [id number] [address] [place] [address], [place] [address] Apr, [facility] [address] [id number] [address] [place] [address], [place] [address] Apr, [facility] [address] [id number] [address] [place] [address], [place] [address] Mar, 2011 [facility] [address] [id number] [address] [place] [address], [place] [address] 31 Mar, 2011 [facility] [address] [id number] [address] [place] [id number] Mar, 2011 [facility] [address] [id number] [address] [place] [id number] Mar, 2011 [facility] [address] [id number] [address] [place] [id number] Mar, 2011 [facility] [address] [id number] [address] [place] [address], [place] [address] Mar, 2011 [facility] [address] [id number] [address] [place] [id number] Mar, 2011 [facility] [address] [id number] [address] [place] [id number] Mar, 2011 [facility] [address] [id number] [address] [place] [id number] Mar, 2011 [facility] [address] [id number] [address] [place] [id number] Mar, 2011 [facility] [address] [id number] [address] [place] [id number] Mar, 2011 [facility] [address] [id number] [address] [place] [id number] Mar, 2011 [facility] [address] [id number] [address] [place] [id number] Mar, 2011 [facility] [address] [id number] [address] [place] [id number] Mar, [facility] [address] [id number] [address] [place] [id number] Mar, [facility] [address] [id number] [address] [place] [id number] Mar, [facility] [address] [id number] [facility] [place] [address] 25 Sep, 2011 [facility] [address] [id number] [address] [place] [address], [place] [address] 24 Sep, 2011 [facility] [address] [id number] [address] [place] [address], [place] [address] 22 Sep, 2011 [facility] [address] [id number] [address] [place] [address], [place] [address] 22 Sep, 2011 [facility] [address] [id number] [address] [place] [address], [place] [address] 21 Sep, 2011 [facility] [address] [id number] [address] [place] [address], [place] [address] 18 Sep, 2011 [facility] [address] [id number] [address] [place] [address], [place] [address] 14 Jan, 2011 [facility] [address] [id number] [address] [place] [address], [place] [address] 07 Jan, 2011 [facility] [address] [id number] [address] [place] [address], [place] [address] 15 Dec, 2011 [facility] [address] [id number] [address] [place] [address], [place] [address] 10 Dec, 2011 [facility] [address] [id number] [address] [place] [address], [place] [address] 09 Dec, 2011 [facility] [address] [id number] [address] [place] [address], [place] [address] 08 Dec, 2011 [facility] [address] [id number] [address] [place] [address], [place] [address] Dec, [facility] [address] [id number] [address] [place] [address], [place] [address] Dec, [facility] [address] [id number] [address] [place] [address], [place] [address] Dec, [facility] [address] [id number] [address] [place] [address], [place] [address] Nov, [facility] [address] [id number] [address] [place] [address], [place] [address] 06 Oct, 2011 [facility] [address] [id number] [address] [place] [address], [place] [address] 05 Aug, 2011 [facility] [address] [id number] [address] [place] [address], [place] [address] 22 Jul, 2011 [facility] [address] [id number] [address] [place] [address], [place] [address] 19 Jul, 2011 [facility] [address] [id number] [address] [place] [address], [place] [address] 16 Jul, 2011 [facility] [address] [id number] [address] [place] [address], [place] [address] 14 Jul, 2011 [facility] [address] [id number] [address] [place] [address], [place] [address] 07 Jul, 2011 [facility] [address] [id number] [address] [place] [address], [place] [address] Jul, [facility] [address] [id number] [address] [place] [address], [place] [address] Jul, [facility] [address] [id number] [address] [place] [address], [place] [address] 15 Jul, 2011 [facility] [address] [id number] [address] [place] [address], [place] [address] Jul, [facility] [address] [id number] [address] [place] [address], [place] [address] Jul, [facility] [address] [id number] [address] [place] [address], [place] [address] Jul, [facility] [address] [id number] [address] [place] [address], [place] [address] Jun, [facility] [address] [id number] [address] [place] [address], [place] [address] Jun, [facility] [address] [id number] [address] [place] [address], [place] [address] 13 Jun, 2011 [facility] [address] [id number] [address] [place] [address], [place] [address] 11 Jun, 2011 [facility] [address] [id number] [address] [place] [address], [place] [address] 06 Jun, 2011 [facility] [address] [id number] [address] [place] [address], [place] [address] Jun, [facility] [address] [id number] [address] [place] [address], [place] [address] Jun, [facility] [address] [id number] [address] [place] [address], [place] [address] May, [facility] [address] [id number] [address] [place] [address], [place] [address] May, [facility] [address] [id number] [address] [place] [address], [place] [address] May, [facility] [address] [id number] [address] [place] [address], [place] [address] May, [facility] [address] [id number] [address] [place] [address], [place] [address] May, [facility] [address] [id number] [address] [place] [address], [place] [address] May, [facility] [address] [id number] [address] [place] [address], [place] [address] May, [facility] [address] [id number] [address] [place] [address], [place] [address] May, [facility] [address] [id number] [address] [place] [address], [place] [address] 06 May, 2011 [facility] [address] [id number] [address] [place] [address], [place] [address] 03 May, 2011 [facility] [address] [id number] [address] [place] [address], [place] [address] 15 Apr, 2011 [facility] [address] [id number] [address] [place] [id number] Apr, [facility] [address] [id number] [address] [place] [id number] Apr, [facility] [address] [id number] [address] [place] [id number] Apr, [facility] [address] [facility] [id number] [address] [place] [id number] Mar, [facility] [address] [id number] [address] [place] [id number] Mar, [facility] [address] [facility] [id number] [address] [place] [id number] Mar, [facility] [address] [facility] [id number] [address] [place] [address] Mar, IMMUNIZATIONS No Known Immunizations SOCIAL HISTORY [...] History Colonoscopy Hospitalization History surgeries Hospitalization History [facility] 03/24/16 Hospitalization History [facility] for kidney stones/hypertension 0 12/2017
--- OUTSIDE RECORDS SUMMARY | 2020-01-03 17:47 | XMS REPORT ---
Author Author Pattie Moffett Doctor Organization [facility] Address Unknown Phone Unavailable Care Team Providers Care Cartridge Filler Name Role Phone Migration, Doctor Unavailable Unavailable PROBLEMS Type Condition ICD9-CM Code [id number] Code Onset Dates Condition S tatus SNOMED Code Problem FRANCIS (generalized anxiety disorder) F41.1 Active 29715572 Problem Thoracic disc herniation M51.24 Activ e 019699675 Problem Major depressive disorder in partial remission F32 .4 Active 61851165 Problem Seizure disorder G40.909 Active 128 640724 Problem Conversion disorder (or hysterical neurosis, conversion ty pe) F44.9 Active 59612438 Problem Constipation, unspecified constipation type K59.00 Active 07412112 Problem Mild episode of recurrent major depressive disorder F33.0 Active 989782167 Problem Restless leg syndrome G25.81 Active 01678835 Problem Nonadherence to medication Z91.14 Act vivian 527374029 Problem Slow transit constipation K59.01 Acti ve 58574803 Problem Atrophic vaginitis N95.2 Active 5 9164090 Problem Paroxysmal tachycardia I47.9 Active 13732844 Problem Other chronic pain G89.29 Active 8 9744118 Problem Mild intermittent asthma without complication J45. 20 Active 134394382 Problem Obesity (BMI 30.0-34.9) E66.9 Active [id number] Problem High blood pressure I10 Active 55146075 ALLERGIES No Information ENCOUNTERS Encounter Location Date Diagnosis [facility] [address] [facility] [id number] [address] [place] [phone] 08 Nov, 2019 [facility] [address] [facility] [id number] [address] [place] [phone] Nov, [address] [id number] [id number] 26 Oct, 2019 Breast cancer screening Z12.[address] [id number] [address] 08 Oct, 2019 Breast cancer screening Z12. 39 [facility] [address] [id number] [address] [place] [phone] Oct, [facility] [address] [id number] [address] [place] [address] Oct, [facility] [address] [id number] [address] [place] [address] September, [facility] [address] [id number] [address] [place] [address] September, [facility] [address] [id number] [address] [place] [address] September, Well woman exam with routine gynecological exam Z01.419 and Atrophic vaginitis N95.2 [facility] [address] [id number] [address] [place] [address] September, Major depressive disorder in partial remission F32.4 ; FRANCIS (generalized anxiety disorder) F41.1 ; Restless leg syndrome G25.81 and Nonadherence to medication Z91.14 [facility] [address] [id number] [address] [place] [address] September, [facility] [address] [id number] [address] [place] [phone] Aug, [facility] [address] [facility] [id number] [address] [place] [id number] Aug, Dental examination Z01.20 [facility] [address] [id number] [address] [place] [id number] Aug, Dental examination Z01.20 an d Caries K02.9 [facility] [address] [id number] [address] [place] [address] Aug, [facility] [address] [id number] [address] [place] [id number] Aug, [facility] [address] [id number] [address] [place] [address] Aug, Other chronic pain G89.29 an d Back muscle spasm M62.830 [facility] [address] [id number] [address] [place] [phone] 07 Aug, 2019 [facility] [address] [id number] [address] [place] [address] Aug, Major depressive disorder in partial remission F32.4 ; FRANCIS (generalized anxiety disorder) F41.1 ; Restless leg syndrome G25.81 and Nonadherence to medication Z91.14 [facility] [address] [id number] [address] [place] [phone] Aug, [facility] [address] [id number] [address] [place] [phone] Jul, [facility] [address] [id number] [address] [place] [address] Jul, [facility] [address] [id number] [address] [place] [address] Jul, Major depressive disorder in partial remission F32.4 ; FRANCIS (generalized anxiety disorder) F41.1 ; Restless leg syndrome G25.81 and High blood pressure I10 [facility] [address] [id number] [address] [place] [phone] 17 Jul, 2019 [facility] [address] [id number] [address] [place] [address] Jul, [facility] [address] [id number] [address] [place] [address] Jun, [facility] [address] [id number] [address] [place] [address] May, [facility] [address] [id number] [address] [place] [address] Apr, [facility] [address] [id number] [address] [place] [address] Apr, [facility] [address] [id number] [address] [place] [address] Mar, [facility] [address] [id number] [address] [place] [address] Mar, Major depressive disorder in partial remission F32.4 ; FRANCIS (generalized anxiety disorder) F41.1 and Restless leg syndrome G25.81 [facility] [address] [id number] [address] [place] [address] Mar, Obesity (BMI 30.0-34.9) E66. 9 [facility] [address] [id number] [address] [place] [address] Jan, [facility] [address] [id number] [address] [place] [address] Jan, Burn T30.0 [facility] [address] [id number] [address] [place] [address] Dec, [facility] [address] [id number] [address] [place] [phone] Nov, [facility] [address] [id number] [address] [place] [address] Nov, [facility] [address] [id number] [address] [place] [address] [id number] Nov, Dental examination Z01.20 [facility] [address] [id number] [address] [place] [address] September, [facility] [address] [id number] [address] [place] [id number] September, Decay, teeth K02.9 and Denta l examination Z01.20 [facility] [address] [id number] [address] [place] [id number] September, Dental examination Z01.20 [facility] [address] [id number] [address] [place] [address] September, FRANCIS (generalized anxiety dis order) F41.1 ; Major depressive disorder in partial remission F32.4 and Restless leg syndrome G25.81 [facility] [address] [address] Aug, [facility] [address] [phone] Jul, [facility] [address] [place] [id number] [place] [address] Jul, Encounter to discuss test re sults Z71.2 [facility] [address] [address] Jul, Pelvic pain R10.2 ; Screenin g for breast cancer Z12.31 and Obesity (BMI 30.0-34.9) E66.9 [place] [address] [address] Jul, Mild intermittent asthma wit hout complication J45.20 [place] [address] [address] Jul, Major depressive disorder in partial remission F32.4 and FRANCIS (generalized anxiety disorder) F41.1 [place] [address] [address] Jul, [facility] [address] [address] Jun, [place] [address] [phone] May, Major depressive disorder in partial remission F32.4 ; FRANCIS (generalized anxiety disorder) F41.1 and Restless leg syndrome G25.81 [place] [address] [address] Apr, [facility] [address] [place] [id number] [place] [address] Mar, [facility] [address] [place] [id number] [address] [place] [address] 21 Sep, 2018 Pain in thoracic spine M54.6 and Other chronic pain G89.29 [facility] [address] [id number] [address] [place] [phone] 14 Jan, 2018 [facility] [address] [id number] [address] [place] [phone] 11 Jan, 2018 Mild episode of recurrent ma saray depressive disorder F33.0 ; FRANCIS (generalized anxiety disorder) F41.1 and Restless leg syndrome G25.81 [facility] [address] [id number] [address] [place] [address] Dec, [facility] [address] [id number] [address] [place] [address] Dec, Hospital discharge follow-up Z09 [facility] [address] [id number] [address] [place] [address] Nov, [facility] [address] [id number] [address] [place] [address] Nov, [facility] [address] [id number] [address] [place] [address] September, [facility] [address] [id number] [address] [place] [address] September, [facility] [address] [id number] [address] [place] [address] September, Major depressive disorder in partial remission F32.4 ; FRANCIS (generalized anxiety disorder) F41.1 and Restless leg syndrome G25.81 [facility] [address] [id number] [address] [place] [address] September, [facility] [address] [id number] [address] [place] [phone] Jul, [facility] [address] [id number] [address] [place] [address] Jul, Dorsalgia, unspecified M54.9 [facility] [address] [id number] [address] [place] [phone] Jul, Mild episode of recurrent ma saray depressive disorder F33.0 and FRANCIS (generalized anxiety disorder) F41.1 [facility] [address] [id number] [address] [place] [address] May, [facility] [address] [facility] [id number] [address] [place] [address] May, Dysuria R30.0 and Acute cyst itis with hematuria N30.01 [facility] [address] [id number] [address] [place] [address] Apr, [place] [address] [facility] [id number] [address] [place] [address] Apr, Major depressive disorder in partial remission F32.4 and FRANCIS (generalized anxiety disorder) F41.1 [place] [address] [facility] [id number] [address] [place] [address] Mar, Paroxysmal tachycardia I47.9 [place] [address] [facility] [id number] [address] [place] [address] Mar, Paroxysmal tachycardia I47.9 and Pain of left lower extremity M79.605 [place] [address] [facility] [id number] [address] [place] [address] Mar, FRANCIS (generalized anxiety dis order) F41.1 and Major depressive disorder in partial remission F32.4 [place] [address] [facility] [id number] [address] [place] [address] Jan, [facility] [address] [id number] [address] [place] [address] Jan, [place] [address] [facility] [id number] [address] [place] [address] Jan, [facility] [address] [facility] [id number] [address] [place] [address] Dec, Constipation, unspecified co nstipation type K59.00 [place] [address] [facility] [id number] [address] [place] [id number] Dec, [facility] [address] [id number] [address] [place] [address] Nov, [facility] [address] [facility] [id number] [address] [place] [phone] Nov, Major depressive disorder in partial remission F32.4 and FRANCIS (generalized anxiety disorder) F41.1 [facility] [address] [facility] [id number] [address] [place] [address] Oct, Abdominal pain R10.9 and Slo w transit constipation K59.01 [place] [address] [facility] [id number] [address] [place] [address] Aug, Major depressive disorder in partial remission F32.4 ; FRANCIS (generalized anxiety disorder) F41.1 ; Conversion disorder (or hysterical neurosis, conversion type) F44.9 ; Dorsalgia, unspecified M54.9 and Long-term use of high-risk medication Z79.899 [place] [address] [facility] [id number] [address] [place] [address] Aug, [place] [address] [facility] [id number] [address] [place] [address] Jul, Paroxysmal tachycardia I47.9 [place] [address] [facility] [id number] [address] [place] [address] Jul, Paroxysmal tachycardia I47.9 [place] [address] [facility] [id number] [address] [place] [address] Jun, [facility] [address] [facility] [id number] [address] [place] [address] Jun, Major depressive disorder in partial remission F32.4 ; FRANCIS (generalized anxiety disorder) F41.1 and Conversion disorder (or hysterical neurosis, conversion type) F44.9 [facility] [address] [facility] [id number] [address] [place] [address] May, Pelvic pain R10.2 [facility] [address] [id number] [address] [place] [address] 30 Apr, 2016 Gastroenteritis K52.9 [facility] [address] [id number] [address] [place] [phone] 17 Apr, 2016 Blood in urine R31.9 and Acu te cystitis with hematuria N30.01 [facility] [address] [id number] [address] [place] [address] Apr, Major depressive disorder in partial remission F32.4 ; FRANCIS (generalized anxiety disorder) F41.1 and Conversion disorder (or hysterical neurosis, conversion type) F44.9 [facility] [address] [id number] [address] [place] [address] Apr, [facility] [address] [facility] [id number] [address] [place] [address] Apr, Abnormal mammogram R92.8 [facility] [address] [id number] [address] [place] [address] Mar, [facility] [address] [id number] [address] [place] [address] Mar, Gastroenteritis K52.9 and Se izure disorder G40.909 [facility] [address] [id number] [address] [place] [address] Dec, [facility] [address] [id number] [address] [place] [phone] Dec, Other headache syndrome G44. 89 [facility] [address] [id number] [address] [place] [address] Dec, [facility] [address] [facility] [id number] [address] [place] [address] Dec, Thoracic disc herniation M51 .24 [facility] [address] [id number] [address] [place] [address] Dec, [facility] [address] [facility] [id number] [address] [place] [address] Nov, Major depressive disorder in partial remission F32.4 and FRANCIS (generalized anxiety disorder) F41.1 [facility] [address] [id number] [address] [place] [address] Nov, [facility] [address] [id number] [address] [place] [address] Nov, Dorsalgia, unspecified M54.9 [facility] [address] [id number] [address] [place] [address] Oct, [facility] [address] [id number] [address] [place] [address] September, [facility] [address] [id number] [address] [place] [address] Aug, [facility] [address] [id number] [address] [place] [address] Aug, Major depressive disorder in partial remission F32.4 and FRANCIS (generalized anxiety disorder) F41.1 [facility] [address] [id number] [address] [place] [address] Aug, [facility] [address] [id number] [address] [place] [address] Jul, Abnormal mammogram R92.8 [facility] [address] [id number] [address] [place] [address] Jul, [facility] [address] [id number] [address] [place] [address] Jul, [facility] [address] [id number] [address] [place] [address] Jul, [facility] [address] [id number] [address] [place] [address] Jul, [facility] [address] [id number] [address] [place] [address] Jul, [facility] [address] [id number] [address] [place] [address] Jul, [facility] [address] [id number] [address] [place] [address] Jun, Major depressive disorder in partial remission F32.4 and FRANCIS (generalized anxiety disorder) F41.1 [facility] [address] [id number] [address] [place] [phone] Jun, [facility] [address] [id number] [address] [place] [address] May, [facility] [address] [id number] [address] [place] [address] Apr, [facility] [address] [id number] [address] [place] [phone] Mar, Major depressive disorder, r ecurrent episode, moderate F33.1 ; PTSD (post-traumatic stress disorder) F43.10 and FRANCIS (generalized anxiety disorder) F41.1 [facility] [address] [id number] [address] [place] [address] Mar, [facility] [address] [id number] [address] [place] [address] Mar, [facility] [address] [id number] [address] [place] [address] Mar, [facility] [address] [id number] [address] [place] [address] Mar, [facility] [address] [id number] [address] [place] [phone] 23 Jan, 2015 [facility] [address] [id number] [address] [place] [phone] 15 Jan, 2015 [facility] [address] [id number] [address] [place] [address] 15 Jan, 2015 [facility] [address] [facility] [id number] [address] [place] [address] 14 Jan, 2015 Thoracic disc herniation 722 .11 [facility] [address] [id number] [address] [place] [address] Dec, [facility] [address] [id number] [address] [place] [address] Dec, [facility] [address] [id number] [address] [place] [phone] Dec, [facility] [address] [id number] [address] [place] [address] Nov, [facility] [address] [id number] [address] [place] [address] Nov, Generalized anxiety disorder 300.02 ; Posttraumatic stress disorder 309.81 and Major depressive disorder, recurrent episode, moderate 296.32 [facility] [address] [id number] [address] [place] [address] Nov, [facility] [address] [id number] [address] [place] [address] Nov, [facility] [address] [id number] [address] [place] [address] Oct, [facility] [address] [id number] [address] [place] [phone] Oct, [facility] [address] [id number] [address] [place] [phone] Oct, [facility] [address] [id number] [address] [place] [address] September, [facility] [address] [id number] [address] [place] [address] September, [facility] [address] [id number] [address] [place] [id number] Aug, [facility] [address] [id number] [address] [place] [phone] Aug, [facility] [address] [id number] [address] [place] [phone] Jul, [facility] [address] [id number] [address] [place] [address], [place] [address] Jul, [facility] [address] [id number] [address] [place] [address], [place] [address] Jul, [facility] [address] [id number] [address] [place] [address], [place] [address] 17 Jul, 2014 [facility] [address] [id number] [address] [place] [address], [place] [address] Jul, [facility] [address] [id number] [address] [place] [address], [place] [address] Jul, [facility] [address] [id number] [address] [place] [address], [place] [address] Jul, [facility] [address] [id number] [address] [place] [address], [place] [address] Jul, [facility] [address] [id number] [address] [place] [address], [place] [address] Jul, [facility] [address] [id number] [address] [place] [address], [place] [address] Jul, [facility] [address] [id number] [address] [place] [address], [place] [address] Jun, [facility] [address] [id number] [address] [place] [address], [place] [address] Jun, [facility] [address] [id number] [address] [place] [address], [place] [address] Jun, [facility] [address] [id number] [address] [place] [address], [place] [address] May, [facility] [address] [id number] [address] [place] [address], [place] [address] Apr, [facility] [address] [id number] [address] [place] [address], [place] [address] Apr, [facility] [address] [id number] [address] [place] [address], [place] [address] Apr, [facility] [address] [id number] [address] [place] [address], [place] [address] Apr, [facility] [address] [id number] [address] [place] [address], [place] [address] Apr, [facility] [address] [id number] [address] [place] [address], [place] [address] Apr, [facility] [address] [id number] [address] [place] [address], [place] [address] Apr, [facility] [address] [id number] [address] [place] [address], [place] [address] Apr, [facility] [address] [id number] [address] [place] [address], [place] [address] Mar, [facility] [address] [id number] [address] [place] [address], [place] [address] Mar, [facility] [address] [id number] [address] [place] [address], [place] [address] Mar, [facility] [address] [id number] [address] [place] [address], [place] [address] Mar, [facility] [address] [id number] [address] [place] [address], [place] [address] Mar, [facility] [address] [id number] [address] [place] [address], [place] [address] Mar, [facility] [address] [id number] [address] [place] [address], [place] [address] Mar, [facility] [address] [id number] [address] [place] [address], [place] [address] Mar, [facility] [address] [id number] [address] [place] [address], [place] [address] Mar, [facility] [address] [id number] [address] [place] [address], [place] [address] Mar, [facility] [address] [id number] [address] [place] [address], [place] [address] Mar, 2013 [facility] [address] [id number] [address] [place] [address], [place] [address] Mar, [facility] [address] [id number] [address] [place] [address], [place] [address] 14 Mar, 2014 [facility] [address] [id number] [address] [place] [address], [place] [address] Mar, 2013 [facility] [address] [id number] [address] [place] [address], [place] [address] Mar, [facility] [address] [id number] [address] [place] [address], [place] [address] Mar, 2013 [facility] [address] [id number] [address] [place] [address], [place] [address] Mar, 2013 [facility] [address] [id number] [address] [place] [address], [place] [address] 19 Sep, 2013 [facility] [address] [id number] [address] [place] [address], [place] [address] 19 Sep, 2013 [facility] [address] [id number] [address] [place] [address], [place] [address] 09 Sep, 2013 [facility] [address] [id number] [address] [place] [address], [place] [address] 09 Sep, 2013 [facility] [address] [id number] [address] [place] [address], [place] [address] 05 Sep, 2013 [facility] [address] [id number] [address] [place] [address], [place] [address] 05 Sep, 2013 [facility] [address] [id number] [address] [place] [address], [place] [address] 05 Sep, 2013 [facility] [address] [id number] [address] [place] [address], [place] [address] 05 Sep, 2013 [facility] [address] [id number] [address] [place] [address], [place] [address] Jan, [facility] [address] [id number] [address] [place] [address], [place] [address] Jan, [facility] [address] [id number] [address] [place] [address], [place] [address] Jan, [facility] [address] [id number] [address] [place] [address], [place] [address] Jan, [facility] [address] [id number] [address] [place] [address], [place] [address] Jan, [facility] [address] [id number] [address] [place] [address], [place] [address] Dec, [facility] [address] [id number] [address] [place] [address], [place] [address] Dec, [facility] [address] [id number] [address] [place] [address], [place] [address] Dec, [facility] [address] [id number] [address] [place] [address], [place] [address] Dec, [facility] [address] [id number] [address] [place] [address], [place] [address] Dec, [facility] [address] [id number] [address] [place] [address], [place] [address] Dec, [facility] [address] [place] [id number] Dec, [facility] [address] [place] [id number] Dec, [facility] [address] [id number] [address] [place] [address], [place] [address] Dec, [facility] [address] [id number] [address] [place] [address], [place] [address] Dec, [facility] [address] [id number] [address] [place] [address], [place] [address] Dec, [facility] [address] [id number] [address] [place] [address], [place] [address] Dec, [facility] [address] [id number] [facility] [place] [address] Nov, [facility] [address] [id number] [facility] [place] [address] Nov, [facility] [address] [id number] [facility] [place] [address] Nov, [facility] [address] [id number] [address] [place] [address], [place] [address] Nov, [facility] [address] [id number] [address] [place] [address], [place] [address] Nov, [facility] [address] [id number] [address] [place] [address], [place] [address] Nov, [facility] [address] [id number] [address] [place] [address], [place] [address] Nov, [facility] [address] [id number] [address] [place] [address], [place] [address] Nov, [facility] [address] [id number] [address] [place] [address], [place] [address] Nov, [facility] [address] [id number] [address] [place] [address], [place] [address] Nov, [facility] [address] [id number] [address] [place] [address], [place] [address] Nov, [facility] [address] [id number] [address] [place] [address], [place] [address] Nov, [facility] [address] [id number] [address] [place] [address], [place] [address] Nov, [facility] [address] [id number] [address] [place] [address], [place] [address] Oct, [facility] [address] [id number] [address] [place] [address], [place] [address] Oct, [facility] [address] [id number] [facility] [place] [address] Oct, [facility] [address] [id number] [address] [place] [address], [place] [address] Oct, [facility] [address] [id number] [address] [place] [address], [place] [address] Oct, [facility] [address] [id number] [address] [place] [address], [place] [address] Oct, [facility] [address] [id number] [address] [place] [address], [place] [address] Oct, [facility] [address] [id number] [address] [place] [address], [place] [address] Oct, [facility] [address] [id number] [address] [place] [address], [place] [address] Oct, [facility] [address] [id number] [address] [place] [address], [place] [address] Oct, [facility] [address] [id number] [address] [place] [address], [place] [address] Oct, [facility] [address] [id number] [address] [place] [address], [place] [address] Oct, [facility] [address] [id number] [address] [place] [address], [place] [address] September, [facility] [address] [id number] [address] [place] [address], [place] [address] September, [facility] [address] [id number] [address] [place] [address], [place] [address] September, [facility] [address] [id number] [address] [place] [address], [place] [address] September, [facility] [address] [id number] [address] [place] [address], [place] [address] Aug, [facility] [address] [id number] [address] [place] [address], [place] [address] Aug, [facility] [address] [id number] [facility] [place] [address] Aug, [facility] [address] [id number] [address] [place] [address], [place] [address] Aug, [facility] [address] [id number] [address] [place] [address], [place] [address] Aug, [facility] [address] [id number] [address] [place] [address], [place] [address] Aug, [facility] [address] [id number] [address] [place] [address], [place] [address] Aug, [facility] [address] [id number] [address] [place] [address], [place] [address] Jul, [facility] [address] [id number] [address] [place] [address], [place] [address] Jul, [facility] [address] [id number] [address] [place] [address], [place] [address] Jul, [facility] [address] [id number] [address] [place] [address], [place] [address] Jul, [facility] [address] [id number] [address] [place] [address], [place] [address] Jul, [facility] [address] [id number] [address] [place] [address], [place] [address] Jul, [facility] [address] [id number] [address] [place] [address], [place] [address] Jul, [facility] [address] [id number] [address] [place] [address], [place] [address] Jul, [facility] [address] [id number] [address] [place] [address], [place] [address] Jul, [facility] [address] [id number] [address] [place] [address], [place] [address] Jul, [facility] [address] [id number] [address] [place] [address], [place] [address] 18 Jul, 2013 [facility] [address] [id number] [address] [place] [address], [place] [address] 18 Jul, 2013 [facility] [address] [id number] [address] [place] [address], [place] [address] 14 Jul, 2013 [facility] [address] [id number] [address] [place] [address], [place] [address] 14 Jul, 2013 [facility] [address] [id number] [address] [place] [address], [place] [address] 11 Jul, 2013 [facility] [address] [id number] [address] [place] [address], [place] [address] Jul, [facility] [address] [id number] [address] [place] [address], [place] [address] Jul, [facility] [address] [id number] [address] [place] [address], [place] [address] Jul, [facility] [address] [id number] [address] [place] [address], [place] [address] Jun, [facility] [address] [id number] [address] [place] [address], [place] [address] 31 Jun, 2013 [facility] [address] [id number] [address] [place] [address], [place] [address] 15 Jun, 2013 [facility] [address] [id number] [address] [place] [address], [place] [address] 15 Jun, 2013 [facility] [address] [id number] [address] [place] [address], [place] [address] 14 Jun, 2013 [facility] [address] [id number] [address] [place] [address], [place] [address] 14 Jun, 2013 [facility] [address] [id number] [address] [place] [address], [place] [address] 14 Jun, 2013 [facility] [address] [id number] [address] [place] [address], [place] [address] 14 Jun, 2013 [facility] [address] [id number] [address] [place] [address], [place] [address] 14 Jun, 2013 [facility] [address] [id number] [address] [place] [address], [place] [address] 14 Jun, 2013 [facility] [address] [id number] [address] [place] [address], [place] [address] 27 May, 2013 [facility] [address] [id number] [address] [place] [address], [place] [address] 27 May, 2013 [facility] [address] [id number] [address] [place] [address], [place] [address] 26 May, 2013 [facility] [address] [id number] [address] [place] [address], [place] [address] 19 May, 2013 [facility] [address] [id number] [address] [place] [address], [place] [address] 19 May, 2013 [facility] [address] [id number] [address] [place] [address], [place] [address] 16 May, 2013 [facility] [address] [id number] [address] [place] [address], [place] [address] 16 May, 2013 [facility] [address] [id number] [address] [place] [address], [place] [address] 16 May, 2013 [facility] [address] [id number] [address] [place] [address], [place] [address] 16 May, 2013 [facility] [address] [id number] [address] [place] [address], [place] [address] 13 May, 2013 [facility] [address] [id number] [address] [place] [address], [place] [address] 13 May, 2013 [facility] [address] [id number] [address] [place] [address], [place] [address] 11 May, 2013 [facility] [address] [id number] [address] [place] [address], [place] [address] 20 Apr, 2013 [facility] [address] [id number] [address] [place] [address] Apr, [facility] [address] [id number] [address] [place] [address], [place] [address] 18 Apr, 2013 [facility] [address] [id number] [address] [place] [address] Apr, [facility] [address] [id number] [address] [place] [address] Apr, [facility] [address] [id number] [address] [place] [address] 08 Apr, 2013 [facility] [address] [id number] [address] [place] [address], [place] [address] 08 Apr, 2013 [facility] [address] [id number] [address] [place] [address] Apr, [facility] [address] [id number] [address] [place] [address] Apr, [facility] [address] [id number] [address] [place] [address] Apr, [facility] [address] [id number] [address] [place] [address] Apr, [facility] [address] [id number] [address] [place] [address] Mar, [facility] [address] [id number] [address] [place] [address] Mar, [facility] [address] [id number] [address] [place] [address] Mar, [facility] [address] [id number] [address] [place] [address] Mar, [facility] [address] [id number] [address] [place] [address] Mar, [facility] [address] [id number] [address] [place] [address] Mar, [facility] [address] [id number] [address] [place] [address], [place] [address] Mar, [facility] [address] [id number] [address] [place] [address], [place] [address] Mar, [facility] [address] [id number] [address] [place] [address], [place] [address] Mar, [facility] [address] [id number] [address] [place] [address], [place] [address] Mar, [facility] [address] [id number] [address] [place] [address], [place] [address] 15 Mar, 2013 [facility] [address] [id number] [address] [place] [address], [place] [address] Mar, [facility] [address] [id number] [address] [place] [address], [place] [address] 30 Jan, 2013 [facility] [address] [id number] [address] [place] [address], [place] [address] Jan, [facility] [address] [id number] [address] [place] [address], [place] [address] 20 Jan, 2013 [facility] [address] [id number] [address] [place] [address], [place] [address] Jan, [facility] [address] [id number] [address] [place] [address], [place] [address] Dec, [facility] [address] [id number] [address] [place] [address], [place] [address] Dec, [facility] [address] [id number] [address] [place] [address], [place] [address] Dec, [facility] [address] [id number] [address] [place] [address], [place] [address] Dec, [facility] [address] [id number] [address] [place] [address], [place] [address] Dec, [facility] [address] [id number] [address] [place] [address], [place] [address] Dec, [facility] [address] [id number] [address] [place] [address], [place] [address] Dec, [facility] [address] [id number] [address] [place] [address], [place] [address] Dec, [facility] [address] [id number] [address] [place] [address], [place] [address] Dec, [facility] [address] [id number] [address] [place] [address], [place] [address] Nov, [facility] [address] [id number] [address] [place] [address], [place] [address] Nov, [facility] [address] [id number] [address] [place] [address], [place] [address] Nov, [facility] [address] [id number] [address] [place] [address], [place] [address] Nov, [facility] [address] [id number] [address] [place] [address], [place] [address] Nov, [facility] [address] [id number] [address] [place] [address], [place] [address] Nov, [facility] [address] [id number] [address] [place] [address], [place] [address] Nov, [facility] [address] [id number] [address] [place] [address], [place] [address] Nov, [facility] [address] [id number] [address] [place] [address], [place] [address] Oct, [facility] [address] [id number] [address] [place] [address], [place] [address] Oct, [facility] [address] [id number] [address] [place] [address], [place] [address] Oct, [facility] [address] [id number] [address] [place] [address], [place] [address] Oct, [facility] [address] [id number] [address] [place] [address], [place] [address] Oct, [facility] [address] [id number] [address] [place] [address], [place] [address] 21 Oct, 2012 [facility] [address] [id number] [address] [place] [address], [place] [address] 20 Oct, 2012 [facility] [address] [id number] [address] [place] [address], [place] [address] 20 Oct, 2012 [facility] [address] [id number] [address] [place] [address], [place] [address] 19 Oct, 2012 [facility] [address] [id number] [address] [place] [address], [place] [address] 18 Oct, 2012 [facility] [address] [id number] [address] [place] [address], [place] [address] 17 Oct, 2012 [facility] [address] [id number] [address] [place] [address], [place] [address] 14 Oct, 2012 [facility] [address] [id number] [address] [place] [address], [place] [address] 07 Oct, 2012 [facility] [address] [id number] [address] [place] [address], [place] [address] 30 Sep, 2012 [facility] [address] [id number] [address] [place] [address], [place] [address] September, [facility] [address] [id number] [address] [place] [address], [place] [address] 15 Sep, 2012 [facility] [address] [id number] [address] [place] [address], [place] [address] 25 Aug, 2012 [facility] [address] [id number] [address] [place] [address], [place] [address] 24 Aug, 2012 [facility] [address] [id number] [address] [place] [address], [place] [address] 18 Aug, 2012 [facility] [address] [id number] [address] [place] [address], [place] [address] 18 Aug, 2012 [facility] [address] [id number] [address] [place] [address], [place] [address] 18 Aug, 2012 [facility] [address] [id number] [address] [place] [address], [place] [address] Aug, [facility] [address] [id number] [address] [place] [address], [place] [address] Aug, [facility] [address] [id number] [address] [place] [address], [place] [address] Jul, [facility] [address] [id number] [address] [place] [address], [place] [address] Jul, [facility] [address] [id number] [address] [place] [address], [place] [address] Jul, [facility] [address] [id number] [address] [place] [address], [place] [address] Jul, [facility] [address] [id number] [address] [place] [address], [place] [address] Jul, [facility] [address] [id number] [address] [place] [address], [place] [address] Jul, [facility] [address] [id number] [address] [place] [address], [place] [address] Jul, [facility] [address] [id number] [address] [place] [address], [place] [address] Jul, [facility] [address] [id number] [address] [place] [address], [place] [address] Jul, [facility] [address] [id number] [address] [place] [address], [place] [address] Jul, [facility] [address] [id number] [address] [place] [address], [place] [address] 11 Jul, 2012 [facility] [address] [id number] [address] [place] [address], [place] [address] 06 Jul, 2012 [facility] [address] [id number] [address] [place] [address] [place] [address] Jul, [facility] [address] [id number] [address] [place] [address], [place] [address] Jun, [facility] [address] [id number] [address] [place] [address], [place] [address] Jun, [facility] [address] [id number] [address] [place] [address], [place] [address] Jun, [facility] [address] [id number] [address] [place] [address], [place] [address] 17 Jun, 2012 [facility] [address] [id number] [address] [place] [address], [place] [address] 15 Jun, 2012 [facility] [address] [id number] [address] [place] [address], [place] [address] Jun, [facility] [address] [id number] [address] [place] [address], [place] [address] Jun, [facility] [address] [id number] [address] [place] [address], [place] [address] May, [facility] [address] [id number] [address] [place] [address], [place] [address] May, [facility] [address] [id number] [address] [place] [address], [place] [address] May, [facility] [address] [id number] [address] [place] [address], [place] [address] May, [facility] [address] [id number] [address] [place] [address], [place] [address] May, [facility] [address] [id number] [address] [place] [address], [place] [address] May, [facility] [address] [id number] [address] [place] [address], [place] [address] May, [facility] [address] [id number] [address] [place] [address], [place] [address] May, [facility] [address] [id number] [address] [place] [address], [place] [address] May, [facility] [address] [id number] [address] [place] [address], [place] [address] May, [facility] [address] [id number] [address] [place] [address], [place] [address] Apr, [facility] [address] [id number] [address] [place] [address], [place] [address] Apr, [facility] [address] [id number] [address] [place] [address], [place] [address] Apr, [facility] [address] [id number] [address] [place] [address], [place] [address] Apr, [facility] [address] [id number] [address] [place] [address], [place] [address] Apr, [facility] [address] [id number] [address] [place] [address], [place] [address] Apr, [facility] [address] [id number] [address] [place] [address], [place] [address] Apr, [facility] [address] [id number] [address] [place] [address], [place] [address] Apr, [facility] [address] [id number] [address] [place] [address], [place] [address] Apr, [facility] [address] [id number] [address] [place] [address], [place] [address] Apr, [facility] [address] [id number] [address] [place] [address], [place] [address] Apr, [facility] [address] [id number] [address] [place] [address], [place] [address] Apr, [facility] [address] [id number] [address] [place] [address], [place] [address] Mar, [facility] [address] [id number] [address] [place] [address], [place] [address] Mar, 2011 [facility] [address] [id number] [address] [place] [address], [place] [address] 30 Mar, 2011 [facility] [address] [id number] [address] [place] [address] Mar, 2011 [facility] [address] [id number] [address] [place] [address] Mar, 2011 [facility] [address] [id number] [address] [place] [address] Mar, 2011 [facility] [address] [id number] [address] [place] [address], [place] [address] Mar, 2011 [facility] [address] [id number] [address] [place] [address] Mar, 2011 [facility] [address] [id number] [address] [place] [address] Mar, 2011 [facility] [address] [id number] [address] [place] [address] Mar, [facility] [address] [id number] [address] [place] [address] Mar, [facility] [address] [id number] [address] [place] [address] Mar, [facility] [address] [id number] [address] [place] [address] Mar, [facility] [address] [id number] [address] [place] [address] Mar, [facility] [address] [id number] [address] [place] [address], [place] [address] Mar, [facility] [address] [id number] [address] [place] [address] Mar, [facility] [address] [id number] [address] [place] [address] Jan, [facility] [address] [id number] [address] [place] [address], [place] [address] 24 Sep, 2011 [facility] [address] [id number] [address] [place] [address], [place] [address] 22 Sep, 2011 [facility] [address] [id number] [address] [place] [address], [place] [address] 22 Jan, 2011 [facility] [address] [id number] [address] [place] [address], [place] [address] 21 Jan, 2011 [facility] [address] [id number] [address] [place] [address], [place] [address] 18 Sep, 2011 [facility] [address] [id number] [address] [place] [address], [place] [address] 14 Jan, 2011 [facility] [address] [id number] [address] [place] [address], [place] [address] 07 Jan, 2012 [facility] [address] [id number] [address] [place] [address], [place] [address] 15 Dec, 2011 [facility] [address] [id number] [address] [place] [address], [place] [address] 10 Dec, 2011 [facility] [address] [id number] [address] [place] [address], [place] [address] 09 Dec, 2011 [facility] [address] [id number] [address] [place] [address], [place] [address] 08 Dec, 2011 [facility] [address] [id number] [address] [place] [address], [place] [address] Dec, [facility] [address] [id number] [address] [place] [address], [place] [address] Dec, [facility] [address] [id number] [address] [place] [address], [place] [address] Dec, [facility] [address] [id number] [address] [place] [address], [place] [address] Nov, [facility] [address] [id number] [address] [place] [address], [place] [address] Oct, [facility] [address] [id number] [address] [place] [address], [place] [address] 05 Aug, 2011 [facility] [address] [id number] [address] [place] [address], [place] [address] 22 Jul, 2011 [facility] [address] [id number] [address] [place] [address], [place] [address] 19 Jul, 2011 [facility] [address] [id number] [address] [place] [address], [place] [address] 16 Jul, 2011 [facility] [address] [id number] [address] [place] [address], [place] [address] 14 Jul, 2011 [facility] [address] [id number] [address] [place] [address], [place] [address] 07 Jul, 2011 [facility] [address] [id number] [address] [place] [address], [place] [address] 02 Jul, 2011 [facility] [address] [id number] [address] [place] [address], [place] [address] 21 Jul, 2011 [facility] [address] [id number] [address] [place] [address], [place] [address] 15 Jul, 2011 [facility] [address] [id number] [address] [place] [address], [place] [address] 13 Jul, 2011 [facility] [address] [id number] [address] [place] [address], [place] [address] 03 Jul, 2011 [facility] [address] [id number] [address] [place] [address], [place] [address] 02 Jul, 2011 [facility] [address] [id number] [address] [place] [address], [place] [address] 24 Jun, 2011 [facility] [address] [id number] [address] [place] [address], [place] [address] 24 Jun, 2011 [facility] [address] [id number] [address] [place] [address], [place] [address] 13 Jun, 2011 [facility] [address] [id number] [address] [place] [address], [place] [address] 11 Jun, 2011 [facility] [address] [id number] [address] [place] [address], [place] [address] Jun, [facility] [address] [id number] [address] [place] [address], [place] [address] Jun, [facility] [address] [id number] [address] [place] [address], [place] [address] Jun, [facility] [address] [id number] [address] [place] [address], [place] [address] May, [facility] [address] [id number] [address] [place] [address], [place] [address] May, [facility] [address] [id number] [address] [place] [address], [place] [address] May, [facility] [address] [id number] [address] [place] [address], [place] [address] May, [facility] [address] [id number] [address] [place] [address], [place] [address] 14 May, 2011 [facility] [address] [id number] [address] [place] [address], [place] [address] May, [facility] [address] [id number] [address] [place] [address], [place] [address] May, [facility] [address] [id number] [address] [place] [address], [place] [address] May, [facility] [address] [id number] [address] [place] [address], [place] [address] May, [facility] [address] [id number] [address] [place] [address], [place] [address] May, [facility] [address] [id number] [address] [place] [address], [place] [address] 15 Apr, 2011 [facility] [address] [id number] [address] [place] [address], [place] [address] 15 Apr, 2011 [facility] [address] [id number] [address] [place] [address] Apr, [facility] [address] [id number] [address] [place] [address] Apr, [facility] [address] [id number] [address] [place] [address] Mar, [facility] [address] [facility] [id number] [address] [place] [address] Mar, [facility] [address] [id number] [address] [place] [address] Mar, [facility] [address] [facility] [id number] [address] [place] [address] Mar, IMMUNIZATIONS No Known Immunizations SOCIAL HISTORY Never Assessed REASON FOR VISIT PLAN OF CARE VITAL SIGNS Height 61 in 2012-08-06 Weight 169 lbs 2012-08-06 Temperature 98.2 degrees Fahrenheit 2012-08-06 Heart Rate 82 bpm 2012-08-06 Respiratory Rate 18 2012-08-06 Blood pressure systolic 144 mmHg 2012-08-06 Blood pressure diastolic 88 mmHg 2012-08-06 MEDICATIONS Unknown Medications RESULTS No Results PROCEDURES Procedure Date Ordered Result Body Site PSYTX PT&/FAMILY 30 MINUTES August 06, 2012 INSTRUCTIONS MEDICATIONS ADMINISTERED No Known Medications MEDICAL [...]
--- OUTSIDE RECORDS SUMMARY | 2020-01-03 17:47 | XMS REPORT ---
Author Author Pattie VIEIRA Organization [facility] Address [address] [place] [address] Care Team Providers Care Battalion Chief Name Role Phone REYNALDO VIEIRA Unavailable PROBLEMS Type Condition ICD9-CM Code [id number] Code Onset Dates Condition S tatus SNOMED Code Problem FRANCIS (generalized anxiety disorder) F41.1 Active 00118554 Problem Thoracic disc herniation M51.24 Activ e 568571987 Problem Major depressive disorder in partial remission F32 .4 Active 27515580 Problem Seizure disorder G40.909 Active 128 244912 Problem Conversion disorder (or hysterical neurosis, conversion ty pe) F44.9 Active 74153062 Problem Constipation, unspecified constipation type K59.00 Active 94609080 Problem Mild episode of recurrent major depressive disorder F33.0 Active 405799447 Problem Restless leg syndrome G25.81 Active 65846638 Problem Nonadherence to medication Z91.14 Act vivian 578743360 Problem Slow transit constipation K59.01 Acti ve 58510367 Problem Atrophic vaginitis N95.2 Active 5 1496270 Problem Paroxysmal tachycardia I47.9 Active 31105272 Problem Other chronic pain G89.29 Active 8 4346871 Problem Mild intermittent asthma without complication J45. 20 Active 933266645 Problem Obesity (BMI 30.0-34.9) E66.9 Active [id number] Problem High blood pressure I10 Active 61802305 ALLERGIES No Information ENCOUNTERS Encounter Location Date Diagnosis [facility] [address] [id number] [address] Nov, [facility] [address] [facility] [id number] [address] [place] [phone] Nov, [facility] [address] [facility] [id number] [address] [place] [address] Nov, [place] [address] [id number] [id number] 26 Oct, 2019 Breast cancer screening Z12.39 [facility] [place] [address] 340[address] [id number] [place] [address] 08 Oct, 2019 Breast cancer screening Z12. 39 [facility] [address] [id number] [address] [place] [phone] 05 Oct, 2019 [facility] [address] [facility] [id number] [address] [place] [phone] Oct, [facility] [address] [facility] [id number] [address] [place] [phone] September, [facility] [address] [facility] [id number] [address] [place] [phone] September, [facility] [address] [facility] [id number] [address] [place] [phone] September, Well woman exam with routine gynecological exam Z01.419 and Atrophic vaginitis N95.2 [facility] [address] [facility] [id number] [address] [place] [address] September, Major depressive disorder in partial remission F32.4 ; FRANCIS (generalized anxiety disorder) F41.1 ; Restless leg syndrome G25.81 and Nonadherence to medication Z91.14 [facility] [address] [facility] [id number] [address] [place] [address] September, [facility] [address] [id number] [address] [place] [phone] Aug, [facility] [address] [id number] [address] [place] [id number] Aug, Dental examination Z01.20 [facility] [address] [id number] [address] [place] [id number] Aug, Dental examination Z01.20 an d Caries K02.9 [facility] [address] [id number] [address] [place] [phone] Aug, [facility] [address] [id number] [address] [place] [phone] 11 Aug, 2019 [facility] [address] [id number] [address] [place] [phone] Aug, Other chronic pain G89.29 an d Back muscle spasm M62.830 [facility] [address] [id number] [address] [place] [phone] Aug, [facility] [address] [id number] [address] [place] [phone] Aug, Major depressive disorder in partial remission F32.4 ; FRANCIS (generalized anxiety disorder) F41.1 ; Restless leg syndrome G25.81 and Nonadherence to medication Z91.14 [facility] [address] [facility] [id number] [address] [place] [phone] Aug, [facility] [address] [facility] [id number] [address] [place] [phone] Jul, [facility] [address] [id number] [address] [place] [phone] Jul, [facility] [address] [facility] [id number] [address] [place] [phone] Jul, Major depressive disorder in partial remission F32.4 ; FRANCIS (generalized anxiety disorder) F41.1 ; Restless leg syndrome G25.81 and High blood pressure I10 [facility] [address] [facility] [id number] [address] [place] [phone] Jul, [facility] [address] [id number] [address] [place] [address] Jul, [facility] [address] [facility] [id number] [address] [place] [phone] Jun, [facility] [address] [facility] [id number] [address] [place] [phone] May, [facility] [address] [facility] [id number] [address] [place] [phone] Apr, [facility] [address] [id number] [address] [place] [phone] Apr, [facility] [address] [id number] [address] [place] [phone] Mar, [facility] [address] [facility] [id number] [address] [place] [phone] Mar, Major depressive disorder in partial remission F32.4 ; FRANCIS (generalized anxiety disorder) F41.1 and Restless leg syndrome G25.81 [facility] [address] [id number] [address] [place] [phone] Mar, Obesity (BMI 30.0-34.9) E66. 9 [facility] [address] [id number] [address] [place] [phone] Jan, [facility] [address] [facility] [id number] [address] [place] [phone] Jan, Burn T30.0 [facility] [address] [id number] [address] [place] [phone] Dec, [facility] [address] [facility] [id number] [address] [place] [phone] Nov, [facility] [address] [facility] [id number] [address] [place] [phone] Nov, [facility] [id number] [place] [id number] Nov, Dental examination Z01.20 [facility] [address] [id number] [address] [place] [phone] September, [facility] [id number] [place] [address] [id number] September, Decay, teeth K02.9 and Denta l examination Z01.20 [facility] [address] [id number] [address] [place] [address] [id number] September, Dental examination Z01.20 [facility] [address] [place] [id number] [address] [place] [address] September, FRANCIS (generalized anxiety dis order) F41.1 ; Major depressive disorder in partial remission F32.4 and Restless leg syndrome G25.81 [facility] [address] [facility] [id number] [address] [place] [phone] Aug, [place] [address] [place] [id number] [address] [place] [phone] Jul, [place] [address] [place] [id number] [address] [place] [address] Jul, Encounter to discuss test re sults Z71.2 [place] [address] [place] [id number] [place] [phone] Jul, Pelvic pain R10.2 ; Screenin g for breast cancer Z12.31 and Obesity (BMI 30.0-34.9) E66.9 [place] [address] [place] [id number] [address] [place] [phone] Jul, Mild intermittent asthma wit hout complication J45.20 [place] [address] [place] [id number] [address] [place] [phone] Jul, Major depressive disorder in partial remission F32.4 and FRANCIS (generalized anxiety disorder) F41.1 [place] [address] [facility] [id number] [address] [place] [phone] Jul, [place] [address] [place] [id number] [address] [place] [phone] Jun, [place] [address] [place] [id number] [address] [place] [phone] May, Major depressive disorder in partial remission F32.4 ; FRANCIS (generalized anxiety disorder) F41.1 and Restless leg syndrome G25.81 [place] [address] [place] [id number] [address] [place] [phone] Apr, [place] [address] [place] [id number] [address] [place] [phone] Mar, [facility] [address] [id number] [address] [place] [phone] 21 Jan, 2018 Pain in thoracic spine M54.6 and Other chronic pain G89.29 [facility] [address] [id number] [address] [place] [phone] 14 Jan, 2018 [facility] [address] [id number] [address] [place] [phone] 11 Jan, 2018 Mild episode of recurrent ma saray depressive disorder F33.0 ; FRANCIS (generalized anxiety disorder) F41.1 and Restless leg syndrome G25.81 [facility] [address] [id number] [address] [place] [phone] Dec, [facility] [address] [id number] [address] [place] [phone] Dec, Hospital discharge follow-up Z09 [facility] [address] [id number] [address] [place] [phone] Nov, [facility] [address] [id number] [address] [place] [phone] Nov, [facility] [address] [id number] [address] [place] [phone] September, [facility] [address] [id number] [address] [place] [phone] September, [facility] [address] [id number] [address] [place] [phone] September, Major depressive disorder in partial remission F32.4 ; FRANCIS (generalized anxiety disorder) F41.1 and Restless leg syndrome G25.81 [facility] [address] [id number] [address] [place] [phone] September, [facility] [address] [id number] [address] [place] [phone] Jul, [facility] [address] [id number] [address] [place] [phone] Jul, Dorsalgia, unspecified M54.9 [facility] [address] [facility] [id number] [address] [place] [phone] Jul, Mild episode of recurrent ma saray depressive disorder F33.0 and FRANCIS (generalized anxiety disorder) F41.1 [facility] [address] [facility] [id number] [address] [place] [phone] May, [facility] [address] [facility] [id number] [address] [place] [address] May, Dysuria R30.0 and Acute cyst itis with hematuria N30.01 [place] [address] [facility] [id number] [address] [place] [phone] Apr, [facility] [address] [place] [id number] [address] [place] [phone] Apr, Major depressive disorder in partial remission F32.4 and FRANCIS (generalized anxiety disorder) F41.1 [facility] [address] [facility] [id number] [address] [place] [phone] Mar, Paroxysmal tachycardia I47.9 [place] [address] [facility] [id number] [address] [place] [phone] Mar, Paroxysmal tachycardia I47.9 and Pain of left lower extremity M79.605 [facility] [address] [facility] [id number] [address] [place] [phone] Mar, FRANCIS (generalized anxiety dis order) F41.1 and Major depressive disorder in partial remission F32.4 [facility] [address] [facility] [id number] [address] [place] [phone] Jan, [facility] [address] [facility] [id number] [address] [place] [phone] 14 Jan, 2017 [facility] [address] [place] [id number] [address] [place] [phone] 13 Jan, 2017 [facility] [address] [id number] [address] [place] [phone] Dec, Constipation, unspecified co nstipation type K59.00 [facility] [address] [facility] [id number] [address] [place] [phone] Dec, [facility] [address] [facility] [id number] [address] [place] [phone] Nov, [facility] [address] [facility] [id number] [address] [place] [phone] Nov, Major depressive disorder in partial remission F32.4 and FRACNIS (generalized anxiety disorder) F41.1 [facility] [address] [facility] [id number] [address] [place] [phone] Oct, Abdominal pain R10.9 and Slo w transit constipation K59.01 [place] [address] [facility] [id number] [address] [place] [phone] Aug, Major depressive disorder in partial remission F32.4 ; FRANCIS (generalized anxiety disorder) F41.1 ; Conversion disorder (or hysterical neurosis, conversion type) F44.9 ; Dorsalgia, unspecified M54.9 and Long-term use of high-risk medication Z79.899 [place] [address] [place] [id number] [address] [place] [phone] Aug, [place] [address] [place] [id number] [address] [place] [phone] Jul, Paroxysmal tachycardia I47.9 [place] [address] [facility] [id number] [address] [place] [phone] Jul, Paroxysmal tachycardia I47.9 [place] [address] [facility] [id number] [address] [place] [phone] Jun, [place] [address] [facility] [id number] [address] [place] [address] Jun, Major depressive disorder in partial remission F32.4 ; FRANCIS (generalized anxiety disorder) F41.1 and Conversion disorder (or hysterical neurosis, conversion type) F44.9 [facility] [address] [id number] [address] [place] [phone] May, Pelvic pain R10.2 [facility] [address] [id number] [address] [place] [phone] 30 Apr, 2016 Gastroenteritis K52.9 [facility] [address] [id number] [address] [place] [phone] Apr, Blood in urine R31.9 and Acu te cystitis with hematuria N30.01 [facility] [address] [id number] [address] [place] [phone] 17 Apr, 2016 Major depressive disorder in partial remission F32.4 ; FRANCIS (generalized anxiety disorder) F41.1 and Conversion disorder (or hysterical neurosis, conversion type) F44.9 [facility] [address] [id number] [address] [place] [address] Apr, [facility] [address] [id number] [address] [place] [address] Apr, Abnormal mammogram R92.8 [facility] [address] [id number] [address] [place] [phone] Mar, [facility] [address] [id number] [address] [place] [phone] Mar, Gastroenteritis K52.9 and Se izure disorder G40.909 [facility] [address] [id number] [address] [place] [phone] Dec, [facility] [address] [id number] [address] [place] [phone] Dec, Other headache syndrome G44. 89 [facility] [address] [id number] [address] [place] [phone] Dec, [facility] [address] [facility] [id number] [address] [place] [phone] Dec, Thoracic disc herniation M51 .24 [place] [address] [id number] [address] [place] [phone] Dec, [facility] [address] [id number] [address] [place] [phone] Nov, Major depressive disorder in partial remission F32.4 and FRANCIS (generalized anxiety disorder) F41.1 [facility] [address] [id number] [address] [place] [phone] Nov, [facility] [address] [id number] [address] [place] [phone] Nov, Dorsalgia, unspecified M54.9 [facility] [address] [id number] [address] [place] [phone] Oct, [facility] [address] [id number] [address] [place] [phone] September, [facility] [address] [id number] [address] [place] [phone] Aug, [facility] [address] [id number] [address] [place] [phone] Aug, Major depressive disorder in partial remission F32.4 and FRANCIS (generalized anxiety disorder) F41.1 [facility] [address] [id number] [address] [place] [phone] Aug, [facility] [address] [id number] [address] [place] [phone] Jul, Abnormal mammogram R92.8 [facility] [address] [id number] [address] [place] [phone] Jul, [facility] [address] [id number] [address] [place] [phone] 15 Jul, 2015 [facility] [address] [id number] [address] [place] [phone] 14 Jul, 2015 [facility] [address] [id number] [address] [place] [phone] Jul, [facility] [address] [id number] [address] [place] [phone] Jul, [facility] [address] [id number] [address] [place] [phone] Jul, [facility] [address] [facility] [id number] [address] [place] [phone] Jun, Major depressive disorder in partial remission F32.4 and FRANCIS (generalized anxiety disorder) F41.1 [facility] [address] [id number] [address] [place] [phone] Jun, [facility] [address] [id number] [address] [place] [phone] May, [facility] [address] [id number] [address] [place] [phone] Apr, [facility] [address] [id number] [address] [place] [phone] Mar, Major depressive disorder, r ecurrent episode, moderate F33.1 ; PTSD (post-traumatic stress disorder) F43.10 and FRANCIS (generalized anxiety disorder) F41.1 [facility] [address] [id number] [address] [place] [phone] Mar, [facility] [address] [id number] [address] [place] [phone] Mar, [facility] [address] [id number] [address] [place] [phone] Mar, [facility] [address] [id number] [address] [place] [phone] Mar, [facility] [address] [id number] [address] [place] [phone] Jan, [facility] [address] [id number] [address] [place] [phone] 15 Jan, 2015 [facility] [address] [id number] [address] [place] [phone] 15 Jan, 2015 [facility] [address] [id number] [address] [place] [phone] Jan, Thoracic disc herniation 722 .11 [facility] [address] [id number] [address] [place] [phone] Dec, [facility] [address] [id number] [address] [place] [id number] Dec, [facility] [address] [id number] [address] [place] [phone] Dec, [facility] [address] [id number] [address] [place] [id number] Nov, [facility] [address] [id number] [address] [place] [id number] Nov, Generalized anxiety disorder 300.02 ; Posttraumatic stress disorder 309.81 and Major depressive disorder, recurrent episode, moderate 296.32 [facility] [address] [id number] [address] [place] [phone] Nov, [facility] [address] [id number] [address] [place] [phone] Nov, [facility] [address] [id number] [address] [place] [id number] Oct, [facility] [address] [id number] [address] [place] [phone] Oct, [facility] [address] [id number] [address] [place] [phone] Oct, [facility] [address] [id number] [address] [place] [id number] September, [facility] [address] [id number] [address] [place] [phone] September, [facility] [address] [id number] [address] [place] [phone] 14 Aug, 2014 [facility] [address] [id number] [address] [place] [address], [place] [id number] 13 Aug, 2014 [facility] [address] [id number] [address] [place] [address], [place] [id number] Jul, [facility] [address] [id number] [address] [place] [address], [place] [id number] Jul, [facility] [address] [id number] [address] [place] [address], [place] [id number] 17 Jul, 2014 [facility] [address] [id number] [address] [place] [address], [place] [id number] 17 Jul, 2014 [facility] [address] [id number] [address] [place] [address], [place] [id number] 16 Jul, 2014 [facility] [address] [id number] [address] [place] [address], [place] [id number] 16 Jul, 2014 [facility] [address] [id number] [address] [place] [address], [place] [id number] 19 Jul, 2014 [facility] [address] [id number] [address] [place] [address], [place] [id number] 19 Jul, 2014 [facility] [address] [id number] [address] [place] [address], [place] [address] Jul, [facility] [address] [id number] [address] [place] [address], [place] [address] Jul, [facility] [address] [id number] [address] [place] [address], [place] [address] Jun, [facility] [address] [id number] [address] [place] [address], [place] [address] Jun, [facility] [address] [id number] [address] [place] [address], [place] [address] 05 Jun, 2014 [facility] [address] [id number] [address] [place] [address], [place] [address] 04 May, 2014 [facility] [address] [id number] [address] [place] [address], [place] [address] Apr, [facility] [address] [id number] [address] [place] [address], [place] [address] Apr, [facility] [address] [id number] [address] [place] [address], [place] [address] Apr, [facility] [address] [id number] [address] [place] [address], [place] [address] Apr, [facility] [address] [id number] [address] [place] [address], [place] [address] Apr, [facility] [address] [id number] [address] [place] [address], [place] [address] Apr, [facility] [address] [id number] [address] [place] [address], [place] [address] Apr, [facility] [address] [id number] [address] [place] [address], [place] [address] Apr, [facility] [address] [id number] [address] [place] [address] Mar, [facility] [address] [id number] [address] [place] [address], [place] [address] Mar, [facility] [address] [id number] [address] [place] [address] Mar, [facility] [address] [id number] [address] [place] [address] Mar, [facility] [address] [id number] [address] [place] [address] Mar, [facility] [address] [id number] [address] [place] [address], [place] [address] Mar, [facility] [address] [id number] [address] [place] [address] Mar, [facility] [address] [id number] [address] [place] [address] Mar, [facility] [address] [id number] [address] [place] [address], [place] [address] 23 Mar, 2013 [facility] [address] [id number] [address] [place] [address], [place] [address] 2013 [facility] [address] [id number] [address] [place] [address], [place] [address] 17 Mar, 2013 [facility] [address] [id number] [address] [place] [address], [place] [address] 14 Mar, 2013 [facility] [address] [id number] [address] [place] [address], [place] [address] 14 Mar, 2013 [facility] [address] [id number] [address] [place] [address], [place] [address] 07 Mar, 2013 [facility] [address] [id number] [address] [place] [address], [place] [address] 07 Mar, 2013 [facility] [address] [id number] [address] [place] [address], [place] [address] 06 Mar, 2013 [facility] [address] [id number] [address] [place] [address], [place] [address] 06 Mar, 2013 [facility] [address] [id number] [address] [place] [address], [place] [address] 19 Sep, 2013 [facility] [address] [id number] [address] [place] [address], [place] [address] 19 Sep, 2013 [facility] [address] [id number] [address] [place] [address], [place] [address] 09 Sep, 2013 [facility] [address] [id number] [address] [place] [address], [place] [address] 09 Sep, 2013 [facility] [address] [id number] [address] [place] [address], [place] [address] 05 Sep, 2013 [facility] [address] [id number] [address] [place] [address], [place] [address] 05 Sep, 2013 [facility] [address] [id number] [address] [place] [address], [place] [address] 05 Sep, 2013 [facility] [address] [id number] [address] [place] [address], [place] [address] 05 Jan, 2013 [facility] [address] [id number] [address] [place] [address], [place] [address] Jan, 2013 [facility] [address] [id number] [address] [place] [address], [place] [address] Jan, 2013 [facility] [address] [id number] [address] [place] [address], [place] [address] Jan, 2013 [facility] [address] [id number] [address] [place] [address], [place] [address] Jan, 2013 [facility] [address] [id number] [address] [place] [address], [place] [address] Jan, 2013 [facility] [address] [id number] [address] [place] [address], [place] [address] Dec, [facility] [address] [id number] [address] [place] [address], [place] [address] Dec, [facility] [address] [id number] [address] [place] [address], [place] [address] Dec, [facility] [address] [id number] [address] [place] [address], [place] [address] Dec, [facility] [address] [id number] [address] [place] [address], [place] [address] Dec, [facility] [address] [id number] [address] [place] [address], [place] [address] Dec, [facility] [address] [place] [id number] Dec, [facility] [address] [place] [id number] Dec, [facility] [address] [id number] [address] [place] [address], [place] [address] Dec, [facility] [address] [id number] [address] [place] [address], [place] [address] Dec, [facility] [address] [id number] [facility] [address] Dec, [facility] [address] [id number] [facility] [place] [address] Dec, [facility] [address] [id number] [facility] [place] [address] Nov, [facility] [address] [id number] [address] [place] [address], [place] [address] Nov, [facility] [address] [id number] [address] [place] [address], [place] [address] Nov, [facility] [address] [id number] [address] [place] [address], [place] [address] Nov, [facility] [address] [id number] [address] [place] [address], [place] [address] Nov, [facility] [address] [id number] [address] [place] [address], [place] [address] Nov, [facility] [address] [id number] [address] [place] [address], [place] [address] Nov, [facility] [address] [id number] [address] [place] [address], [place] [address] Nov, [facility] [address] [id number] [address] [place] [address], [place] [address] Nov, [facility] [address] [id number] [address] [place] [address], [place] [address] Nov, [facility] [address] [id number] [address] [place] [address], [place] [address] Nov, [facility] [address] [id number] [address] [place] [address], [place] [address] Nov, [facility] [address] [id number] [address] [place] [address], [place] [address] Nov, [facility] [address] [id number] [address] [place] [address], [place] [address] Oct, [facility] [address] [id number] [facility] [place] [address] Oct, [facility] [address] [id number] [facility] [place] [address] Oct, [facility] [address] [id number] [facility] [place] [address] Oct, [facility] [address] [id number] [address] [place] [address], [place] [address] Oct, [facility] [address] [id number] [facility] [place] [address] Oct, [facility] [address] [id number] [address] [place] [address], [place] [address] Oct, [facility] [address] [id number] [address] [place] [address], [place] [address] Oct, [facility] [address] [id number] [address] [place] [address], [place] [address] Oct, [facility] [address] [id number] [address] [place] [address], [place] [address] Oct, [facility] [address] [id number] [address] [place] [address], [place] [address] Oct, [facility] [address] [id number] [address] [place] [address], [place] [address] Oct, [facility] [address] [id number] [address] [place] [address], [place] [address] September, [facility] [address] [id number] [address] [place] [address], [place] [address] September, [facility] [address] [id number] [address] [place] [address], [place] [address] September, [facility] [address] [id number] [address] [place] [address], [place] [address] September, [facility] [address] [id number] [facility] [place] [address] Aug, [facility] [address] [id number] [facility] [place] [address] Aug, [facility] [address] [id number] [facility] [place] [address] Aug, [facility] [address] [id number] [address] [place] [address], [place] [address] Aug, [facility] [address] [id number] [address] [place] [address], [place] [address] Aug, [facility] [address] [id number] [address] [place] [address], [place] [address] Aug, [facility] [address] [id number] [address] [place] [address], [place] [address] Aug, [facility] [address] [id number] [address] [place] [address], [place] [address] Jul, [facility] [address] [id number] [address] [place] [address], [place] [address] Jul, [facility] [address] [id number] [address] [place] [address], [place] [address] Jul, [facility] [address] [id number] [address] [place] [address], [place] [address] Jul, [facility] [address] [id number] [address] [place] [address], [place] [address] Jul, [facility] [address] [id number] [address] [place] [address], [place] [address] Jul, [facility] [address] [id number] [address] [place] [address], [place] [address] Jul, [facility] [address] [id number] [address] [place] [address], [place] [address] Jul, [facility] [address] [id number] [address] [place] [address], [place] [address] Jul, [facility] [address] [id number] [address] [place] [address], [place] [address] 18 Jul, 2013 [facility] [address] [id number] [address] [place] [address], [place] [address] 18 Jul, 2013 [facility] [address] [id number] [address] [place] [address], [place] [address] 18 Jul, 2013 [facility] [address] [id number] [address] [place] [address], [place] [address] 14 Jul, 2013 [facility] [address] [id number] [address] [place] [address], [place] [address] 14 Jul, 2013 [facility] [address] [id number] [address] [place] [address], [place] [address] Jul, [facility] [address] [id number] [address] [place] [address], [place] [address] Jul, [facility] [address] [id number] [address] [place] [address], [place] [address] Jul, [facility] [address] [id number] [address] [place] [address], [place] [address] Jul, [facility] [address] [id number] [address] [place] [address], [place] [address] Jun, [facility] [address] [id number] [address] [place] [address], [place] [address] Jun, [facility] [address] [id number] [address] [place] [address], [place] [address] Jun, [facility] [address] [id number] [address] [place] [address], [place] [address] Jun, [facility] [address] [id number] [address] [place] [address], [place] [address] Jun, [facility] [address] [id number] [address] [place] [address], [place] [address] Jun, [facility] [address] [id number] [address] [place] [address], [place] [address] 14 Jun, 2013 [facility] [address] [id number] [address] [place] [address], [place] [address] 14 Jun, 2013 [facility] [address] [id number] [address] [place] [address], [place] [address] 14 Jun, 2013 [facility] [address] [id number] [address] [place] [address], [place] [address] 14 Jun, 2013 [facility] [address] [id number] [address] [place] [address], [place] [address] 27 May, 2013 [facility] [address] [id number] [address] [place] [address], [place] [address] 27 May, 2013 [facility] [address] [id number] [address] [place] [address], [place] [address] 26 May, 2013 [facility] [address] [id number] [address] [place] [address], [place] [address] 19 May, 2013 [facility] [address] [id number] [address] [place] [address], [place] [address] 19 May, 2013 [facility] [address] [id number] [address] [place] [address], [place] [address] 16 May, 2013 [facility] [address] [id number] [address] [place] [address], [place] [address] 16 May, 2013 [facility] [address] [id number] [address] [place] [address], [place] [address] 16 May, 2013 [facility] [address] [id number] [address] [place] [address], [place] [address] 16 May, 2013 [facility] [address] [id number] [address] [place] [address], [place] [address] 13 May, 2013 [facility] [address] [id number] [address] [place] [address], [place] [address] 13 May, 2013 [facility] [address] [id number] [address] [place] [address], [place] [address] May, [facility] [address] [id number] [address] [place] [address], [place] [address] Apr, [facility] [address] [id number] [address] [place] [address], [place] [address] Apr, [facility] [address] [id number] [address] [place] [address] Apr, [facility] [address] [id number] [address] [place] [address] Apr, [facility] [address] [id number] [address] [place] [address], [place] [address] Apr, [facility] [address] [id number] [address] [place] [address] 08 Apr, 2013 [facility] [address] [id number] [address] [place] [address], [place] [address] Apr, [facility] [address] [id number] [address] [place] [address] Apr, [facility] [address] [id number] [address] [place] [address] Apr, [facility] [address] [id number] [address] [place] [address] Apr, [facility] [address] [id number] [address] [place] [address] Apr, [facility] [address] [id number] [address] [place] [address] Mar, [facility] [address] [id number] [address] [place] [address] Mar, [facility] [address] [id number] [address] [place] [address] Mar, [facility] [address] [id number] [address] [place] [address] Mar, [facility] [address] [id number] [address] [place] [address] Mar, [facility] [address] [id number] [address] [place] [address], [place] [address] Mar, [facility] [address] [id number] [address] [place] [address], [place] [address] Mar, [facility] [address] [id number] [address] [place] [address], [place] [address] Mar, [facility] [address] [id number] [address] [place] [address], [place] [address] Mar, [facility] [address] [id number] [address] [place] [address], [place] [address] Mar, [facility] [address] [id number] [address] [place] [address], [place] [address] Mar, [facility] [address] [id number] [address] [place] [address], [place] [address] Mar, [facility] [address] [id number] [address] [place] [address], [place] [address] 30 Jan, 2013 [facility] [address] [id number] [address] [place] [address], [place] [address] 25 Jan, 2013 [facility] [address] [id number] [address] [place] [address], [place] [address] 20 Jan, 2013 [facility] [address] [id number] [address] [place] [address], [place] [address] Jan, [facility] [address] [id number] [address] [place] [address], [place] [address] Dec, [facility] [address] [id number] [address] [place] [address], [place] [address] Dec, [facility] [address] [id number] [address] [place] [address], [place] [address] Dec, [facility] [address] [id number] [address] [place] [address], [place] [address] Dec, [facility] [address] [id number] [facility] [place] [address] Dec, [facility] [address] [id number] [facility] [place] [address] Dec, [facility] [address] [id number] [address] [place] [address], [place] [address] Dec, [facility] [address] [id number] [address] [place] [address], [place] [address] Dec, [facility] [address] [id number] [address] [place] [address], [place] [address] Dec, [facility] [address] [id number] [address] [place] [address], [place] [address] Nov, [facility] [address] [id number] [address] [place] [address], [place] [address] Nov, [facility] [address] [id number] [address] [place] [address], [place] [address] Nov, [facility] [address] [id number] [address] [place] [address], [place] [address] Nov, [facility] [address] [id number] [address] [place] [address], [place] [address] Nov, [facility] [address] [id number] [address] [place] [address], [place] [address] Nov, [facility] [address] [id number] [address] [place] [address], [place] [address] Nov, [facility] [address] [id number] [address] [place] [address], [place] [address] Nov, [facility] [address] [id number] [address] [place] [address], [place] [address] Oct, [facility] [address] [id number] [address] [place] [address], [place] [address] Oct, [facility] [address] [id number] [address] [place] [address], [place] [address] Oct, [facility] [address] [id number] [address] [place] [address], [place] [address] Oct, [facility] [address] [id number] [address] [place] [address], [place] [address] Oct, [facility] [address] [id number] [address] [place] [address], [place] [address] Oct, [facility] [address] [id number] [address] [place] [address], [place] [address] Oct, [facility] [address] [id number] [address] [place] [address], [place] [address] Oct, [facility] [address] [id number] [address] [place] [address], [place] [address] Oct, [facility] [address] [id number] [address] [place] [address], [place] [address] 18 Oct, 2012 [facility] [address] [id number] [address] [place] [address], [place] [address] 17 Oct, 2012 [facility] [address] [id number] [address] [place] [address], [place] [address] 14 Oct, 2012 [facility] [address] [id number] [address] [place] [address], [place] [address] 07 Oct, 2012 [facility] [address] [id number] [address] [place] [address], [place] [address] September, [facility] [address] [id number] [address] [place] [address], [place] [address] September, [facility] [address] [id number] [address] [place] [address], [place] [address] September, [facility] [address] [id number] [address] [place] [address], [place] [address] Aug, [facility] [address] [id number] [address] [place] [address], [place] [address] Aug, [facility] [address] [id number] [address] [place] [address], [place] [address] 18 Aug, 2012 [facility] [address] [id number] [address] [place] [address], [place] [address] 18 Aug, 2012 [facility] [address] [id number] [address] [place] [address], [place] [address] 18 Aug, 2012 [facility] [address] [id number] [address] [place] [address], [place] [address] 08 Aug, 2012 [facility] [address] [id number] [address] [place] [address], [place] [address] 05 Aug, 2012 [facility] [address] [id number] [address] [place] [address], [place] [address] Jul, [facility] [address] [id number] [address] [place] [address], [place] [address] Jul, [facility] [address] [id number] [address] [place] [address], [place] [address] 08 Jul, 2012 [facility] [address] [id number] [address] [place] [address], [place] [address] 08 Jul, 2012 [facility] [address] [id number] [address] [place] [address], [place] [address] Jul, [facility] [address] [id number] [address] [place] [address], [place] [address] Jul, [facility] [address] [id number] [address] [place] [address], [place] [address] Jul, [facility] [address] [id number] [address] [place] [address], [place] [address] Jul, [facility] [address] [id number] [address] [place] [address], [place] [address] Jul, [facility] [address] [id number] [address] [place] [address], [place] [address] 19 Jul, 2012 [facility] [address] [id number] [address] [place] [address], [place] [address] Jul, [facility] [address] [id number] [address] [place] [address], [place] [address] 06 Jul, 2012 [facility] [address] [id number] [address] [place] [address], [place] [address] Jul, [facility] [address] [id number] [address] [place] [address], [place] [address] 24 Jun, 2012 [facility] [address] [id number] [address] [place] [address], [place] [address] Jun, [facility] [address] [id number] [address] [place] [address], [place] [address] Jun, [facility] [address] [id number] [address] [place] [address], [place] [address] 17 Jun, 2012 [facility] [address] [id number] [address] [place] [address], [place] [address] 15 Jun, 2012 [facility] [address] [id number] [address] [place] [address], [place] [address] 14 Jun, 2012 [facility] [address] [id number] [address] [place] [address], [place] [address] Jun, [facility] [address] [id number] [address] [place] [address], [place] [address] May, [facility] [address] [id number] [address] [place] [address], [place] [address] May, [facility] [address] [id number] [address] [place] [address], [place] [address] May, [facility] [address] [id number] [address] [place] [address], [place] [address] May, [facility] [address] [id number] [address] [place] [address], [place] [address] May, [facility] [address] [id number] [address] [place] [address], [place] [address] 24 May, 2012 [facility] [address] [id number] [address] [place] [address], [place] [address] May, [facility] [address] [id number] [address] [place] [address], [place] [address] May, [facility] [address] [id number] [address] [place] [address], [place] [address] May, [facility] [address] [id number] [address] [place] [address], [place] [address] May, [facility] [address] [id number] [address] [place] [address], [place] [address] Apr, [facility] [address] [id number] [address] [place] [address], [place] [address] Apr, [facility] [address] [id number] [address] [place] [address], [place] [address] Apr, [facility] [address] [id number] [address] [place] [address], [place] [address] Apr, [facility] [address] [id number] [address] [place] [address], [place] [address] Apr, [facility] [address] [id number] [address] [place] [address], [place] [address] Apr, [facility] [address] [id number] [address] [place] [address], [place] [address] Apr, [facility] [address] [id number] [address] [place] [address], [place] [address] Apr, [facility] [address] [id number] [address] [place] [address], [place] [address] Apr, [facility] [address] [id number] [address] [place] [address], [place] [address] Apr, [facility] [address] [id number] [address] [place] [address], [place] [address] Apr, [facility] [address] [id number] [address] [place] [address], [place] [address] Apr, [facility] [address] [id number] [address] [place] [address], [place] [address] Mar, 2011 [facility] [address] [id number] [address] [place] [address], [place] [address] Mar, 2011 [facility] [address] [id number] [address] [place] [address], [place] [address] Mar, [facility] [address] [id number] [address] [place] [address], [place] [address] Mar, 2011 [facility] [address] [id number] [address] [place] [address], [place] [address] Mar, [facility] [address] [id number] [address] [place] [address], [place] [address] Mar, [facility] [address] [id number] [address] [place] [address], [place] [address] Mar, [facility] [address] [id number] [address] [place] [address], [place] [address] Mar, [facility] [address] [id number] [address] [place] [address], [place] [address] Mar, [facility] [address] [id number] [address] [place] [address], [place] [address] Mar, [facility] [address] [id number] [address] [place] [address], [place] [address] Mar, [facility] [address] [id number] [address] [place] [address] Mar, [facility] [address] [id number] [address] [place] [address], [place] [address] Mar, [facility] [address] [id number] [address] [place] [address], [place] [address] Mar, [facility] [address] [id number] [address] [place] [address] Mar, [facility] [address] [id number] [address] [place] [address] 02 Mar, 2012 [facility] [address] [id number] [address] [place] [address], [place] [address] 25 Jan, 2011 [facility] [address] [id number] [address] [place] [address], [place] [address] 24 Jan, 2011 [facility] [address] [id number] [address] [place] [address], [place] [address] 22 Jan, 2011 [facility] [address] [id number] [address] [place] [address], [place] [address] 22 Jan, 2011 [facility] [address] [id number] [address] [place] [address], [place] [address] 21 Jan, 2012 [facility] [address] [id number] [address] [place] [address], [place] [address] 18 Jan, 2012 [facility] [address] [id number] [address] [place] [address], [place] [address] 14 Jan, 2012 [facility] [address] [id number] [address] [place] [address], [place] [address] 07 Jan, 2012 [facility] [address] [id number] [address] [place] [address], [place] [address] 15 Dec, 2011 [facility] [address] [id number] [address] [place] [address], [place] [address] 10 Dec, 2011 [facility] [address] [id number] [address] [place] [address], [place] [address] Dec, [facility] [address] [id number] [address] [place] [address], [place] [address] 08 Dec, 2011 [facility] [address] [id number] [address] [place] [address], [place] [address] Dec, [facility] [address] [id number] [address] [place] [address], [place] [address] Dec, [facility] [address] [id number] [address] [place] [address], [place] [address] Dec, [facility] [address] [id number] [address] [place] [address], [place] [address] 27 Nov, 2011 [facility] [address] [id number] [address] [place] [address], [place] [address] 06 Oct, 2011 [facility] [address] [id number] [address] [place] [address], [place] [address] 05 Aug, 2011 [facility] [address] [id number] [address] [place] [address], [place] [address] 22 Jul, 2011 [facility] [address] [id number] [address] [place] [address], [place] [address] 19 Jul, 2011 [facility] [address] [id number] [address] [place] [address], [place] [address] 16 Jul, 2011 [facility] [address] [id number] [address] [place] [address], [place] [address] 14 Jul, 2011 [facility] [address] [id number] [address] [place] [address], [place] [address] 07 Jul, 2011 [facility] [address] [id number] [address] [place] [address], [place] [address] 02 Jul, 2011 [facility] [address] [id number] [address] [place] [address], [place] [address] 21 Jul, 2011 [facility] [address] [id number] [address] [place] [address], [place] [address] 15 Jul, 2011 [facility] [address] [id number] [address] [place] [address], [place] [address] 13 Jul, 2011 [facility] [address] [id number] [address] [place] [address], [place] [address] 03 Jul, 2011 [facility] [address] [id number] [address] [place] [address], [place] [address] 02 Jul, 2011 [facility] [address] [id number] [address] [place] [address], [place] [address] 24 Jun, 2011 [facility] [address] [id number] [address] [place] [address] [address] Jun, [facility] [address] [id number] [address] [place] [address], [place] [address] Jun, [facility] [address] [id number] [address] [place] [address], [place] [address] Jun, [facility] [address] [id number] [address] [place] [address], [place] [address] Jun, [facility] [address] [id number] [address] [place] [address], [place] [address] Jun, [facility] [address] [id number] [address] [place] [address], [place] [address] Jun, [facility] [address] [id number] [address] [place] [address], [place] [address] May, [facility] [address] [id number] [address] [place] [address], [place] [address] May, [facility] [address] [id number] [address] [place] [address], [place] [address] May, [facility] [address] [id number] [address] [place] [address], [place] [address] May, [facility] [address] [id number] [address] [place] [address], [place] [address] May, [facility] [address] [id number] [address] [place] [address], [place] [address] May, [facility] [address] [id number] [address] [place] [address], [place] [address] May, [facility] [address] [id number] [address] [place] [address], [place] [address] May, [facility] [address] [id number] [address] [place] [address], [place] [address] May, [facility] [address] [id number] [address] [place] [address], [place] [address] May, [facility] [address] [id number] [address] [place] [address] Apr, [facility] [address] [id number] [address] [place] [address] Apr, [facility] [address] [id number] [address] [place] [address] Apr, [facility] [address] [id number] [address] [place] [address] Apr, [facility] [address] [id number] [address] [place] [address] Mar, [facility] [address] [facility] [id number] [address] [place] [address] Mar, [facility] [address] [facility] [id number] [address] [place] [address] Mar, [facility] [address] [facility] [id number] [address] [place] [address] Mar, IMMUNIZATIONS No Known Immunizations SOCIAL HISTORY [...]
--- OUTSIDE RECORDS SUMMARY | 2020-01-03 17:48 | XMS REPORT ---
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 Name Role Phone VLADISLAV Dave Unavailable PROBLEMS Type Condition ICD9-CM Code [id number] Code Onset Dates Condition S tatus SNOMED Code Problem FRANCIS (generalized anxiety disorder) F41.1 Active 95461266 Problem Thoracic disc herniation M51.24 Activ e 565497495 Problem Major depressive disorder in partial remission F32 .4 Active 63514333 Problem Seizure disorder G40.909 Active 128 882765 Problem Conversion disorder (or hysterical neurosis, conversion ty pe) F44.9 Active 33455183 Problem Constipation, unspecified constipation type K59.00 Active 62102472 Problem Mild episode of recurrent major depressive disorder F33.0 Active 436435741 Problem Restless leg syndrome G25.81 Active 11440147 Problem Nonadherence to medication Z91.14 Act vivian 245482554 Problem Slow transit constipation K59.01 Acti ve 75849390 Problem Atrophic vaginitis N95.2 Active 5 4093826 Problem Paroxysmal tachycardia I47.9 Active 28953458 Problem Other chronic pain G89.29 Active 8 4448595 Problem Mild intermittent asthma without complication J45. 20 Active 238632651 Problem Obesity (BMI 30.0-34.9) E66.9 Active [id number] Problem High blood pressure I10 Active 34832535 ALLERGIES No Information ENCOUNTERS Encounter Location Date Diagnosis [facility] [address] [facility] [id number] [address] [place] [phone] Nov, [facility] [address] [facility] [id number] [address] [place] [phone] Nov, [facility] [address] [id number] [place] [address] [id number] Oct, Breast cancer screening Z12.[address] [id number] [address] 08 Oct, 2019 Breast cancer screening Z12. 39 [facility] [address] [id number] [address] [place] [phone] Oct, [facility] [address] [id number] [address] [place] [phone] Oct, [facility] [address] [facility] [id number] [address] [place] [phone] September, [facility] [address] [id number] [address] [place] [id number] September, [facility] [address] [facility] [id number] [address] [place] [phone] September, Well woman exam with routine gynecological exam Z01.419 [address].2 [facility] [address] [facility] [id number] [address] [place] [phone] September, Major depressive disorder in partial remission F32.4 ; FRANCIS (generalized anxiety disorder) F41.1 ; Restless leg syndrome G25.81 and Nonadherence to medication Z91.14 [facility] [address] [facility] [id number] [address] [place] [phone] September, [facility] [address] [id number] [address] [place] [phone] Aug, [facility] [address] [id number] [address] [place] [phone] Aug, Dental examination Z01.20 [facility] [address] [id number] [address] [place] [phone] Aug, Dental examination Z01.20 an d Caries K02.9 [facility] [address] [id number] [address] [place] [phone] Aug, [facility] [address] [id number] [address] [place] [phone] Aug, [facility] [address] [id number] [address] [place] [phone] Aug, Other chronic pain G89.29 an d Back muscle spasm M62.830 [facility] [address] [id number] [address] [place] [phone] 07 Aug, 2019 [facility] [address] [id number] [address] [place] [phone] Aug, Major depressive disorder in partial remission F32.4 ; FRANCIS (generalized anxiety disorder) F41.1 ; Restless leg syndrome G25.81 and Nonadherence to medication Z91.14 [facility] [address] [id number] [address] [place] [phone] Aug, [facility] [address] [id number] [address] [place] [phone] Jul, [facility] [address] [id number] [address] [place] [phone] Jul, [facility] [address] [id number] [address] [place] [phone] Jul, Major depressive disorder in partial remission F32.4 ; FRANCIS (generalized anxiety disorder) F41.1 ; Restless leg syndrome G25.81 and High blood pressure I10 [facility] [address] [id number] [address] [place] [phone] Jul, [facility] [address] [id number] [address] [place] [phone] Jul, [facility] [address] [id number] [address] [place] [phone] Jun, [facility] [address] [id number] [address] [place] [phone] May, [facility] [address] [id number] [address] [place] [phone] Apr, [facility] [address] [id number] [address] [place] [phone] Apr, [facility] [address] [id number] [address] [place] [phone] Mar, [facility] [address] [facility] [id number] [address] [place] [phone] Mar, Major depressive disorder in partial remission F32.4 ; FRANCIS (generalized anxiety disorder) F41.1 and Restless leg syndrome G25.81 [facility] [address] [id number] [address] [place] [phone] Mar, Obesity (BMI 30.0-34.9) E66. 9 [facility] [address] [id number] [address] [place] [phone] Jan, [facility] [address] [facility] [id number] [address] [place] [phone] Jan, Burn T30.0 [facility] [address] [id number] [address] [place] [phone] Dec, [facility] [address] [id number] [address] [place] [phone] Nov, [facility] [address] [facility] [id number] [address] [place] [phone] Nov, [facility] [address] [id number] [address] [place] [address] [phone] Nov, Dental examination Z01.20 [facility] [address] [id number] [address] [place] [phone] September, [facility] [address] [id number] [address] [place] [address] [phone] September, Decay, teeth K02.9 and Denta l examination Z01.20 [facility] [address] [id number] [address] [place] [phone] September, Dental examination Z01.20 [facility] [address] [id number] [address] [place] [phone] September, FRANCIS (generalized anxiety dis order) F41.1 ; Major depressive disorder in partial remission F32.4 and Restless leg syndrome G25.81 [facility] [address] [facility] [id number] [address] [place] [phone] Aug, [facility] [address] [facility] [id number] [address] [place] [phone] Jul, [facility] [address] [facility] [id number] [address] [place] [phone] Jul, Encounter to discuss test re sults Z71.2 [place] [address] [facility] [id number] [address] [place] [phone] Jul, Pelvic pain R10.2 ; Screenin g for breast cancer Z12.31 and Obesity (BMI 30.0-34.9) E66.9 [place] [address] [facility] [id number] [address] [place] [id number] Jul, Mild intermittent asthma wit hout complication J45.20 [place] [address] [facility] [id number] [address] [place] [phone] Jul, Major depressive disorder in partial remission F32.4 and FRANCIS (generalized anxiety disorder) F41.1 [place] [address] [facility] [id number] [address] [place] [phone] Jul, [facility] [address] [facility] [id number] [address] [place] [phone] Jun, [facility] [address] [facility] [id number] [address] [place] [phone] May, Major depressive disorder in partial remission F32.4 ; FRANCIS (generalized anxiety disorder) F41.1 and Restless leg syndrome G25.81 [facility] [address] [facility] [id number] [address] [place] [phone] Apr, [facility] [address] [facility] [id number] [address] [place] [phone] Mar, [facility] [address] [id number] [address] [place] [phone] 21 Jan, 2018 Pain in thoracic spine M54.6 and Other chronic pain G89.29 [facility] [address] [id number] [address] [place] [phone] 14 Jan, 2018 [facility] [address] [id number] [address] [place] [phone] 11 Jan, 2018 Mild episode of recurrent ma saray depressive disorder F33.0 ; FRANCIS (generalized anxiety disorder) F41.1 and Restless leg syndrome G25.81 [facility] [address] [id number] [address] [place] [phone] Dec, [facility] [address] [id number] [address] [place] [phone] Dec, Hospital discharge follow-up Z09 [facility] [address] [id number] [address] [place] [phone] Nov, [facility] [address] [id number] [address] [place] [phone] Nov, [facility] [address] [id number] [address] [place] [phone] September, [facility] [address] [id number] [address] [place] [phone] September, [facility] [address] [id number] [address] [place] [phone] September, Major depressive disorder in partial remission F32.4 ; FRANCIS (generalized anxiety disorder) F41.1 and Restless leg syndrome G25.81 [facility] [address] [id number] [address] [place] [phone] September, [facility] [address] [id number] [address] [place] [phone] Jul, [facility] [address] [id number] [address] [place] [phone] 02 Mar, [address], [address] [facility] [address] [id number] [address] [place] [phone] Jul, Mild episode of recurrent ma saray depressive disorder F33.0 and FRANCIS (generalized anxiety disorder) F41.1 [facility] [address] [id number] [address] [place] [phone] May, [facility] [address] [id number] [address] [place] [phone] May, Dysuria R30.0 and Acute cyst itis with hematuria N30.01 [place] [address] [id number] [address] [place] [phone] Apr, [facility] [address] [id number] [address] [place] [phone] Apr, Major depressive disorder in partial remission F32.4 and FRANCIS (generalized anxiety disorder) F41.1 [place] [address] [id number] [address] [place] [phone] Mar, Paroxysmal tachycardia I47.9 [place] [address] [id number] [address] [place] [phone] Mar, Paroxysmal tachycardia I47.9 and Pain of left lower extremity M79.605 [facility] [address] [id number] [address] [place] [phone] Mar, FRANCIS (generalized anxiety dis order) F41.1 and Major depressive disorder in partial remission F32.4 [facility] [address] [id number] [address] [place] [phone] Jan, [facility] [address] [id number] [address] [place] [phone] [address], [address] [facility] [address] [id number] [address] [place] [phone] Jan, [facility] [address] [id number] [address] [place] [phone] Dec, Constipation, unspecified co nstipation type K59.00 [facility] [address] [id number] [address] [place] [phone] Dec, [facility] [address] [id number] [address] [place] [phone] Nov, [facility] [address] [id number] [address] [place] [phone] Nov, Major depressive disorder in partial remission F32.4 and FRANCIS (generalized anxiety disorder) F41.1 [facility] [address] [id number] [address] [place] [phone] Oct, Abdominal pain R10.9 and Slo w transit constipation K59.01 [place] [address] [id number] [address] [place] [phone] Aug, Major depressive disorder in partial remission F32.4 ; FRANCIS (generalized anxiety disorder) F41.1 ; Conversion disorder (or hysterical neurosis, conversion type) F44.9 ; Dorsalgia, unspecified M54.9 and Long-term use of high-risk medication Z79.899 [place] [address] [id number] [address] [place] [phone] Aug, [place] [address] [id number] [address] [place] [phone] Jul, Paroxysmal tachycardia I47.9 [facility] [address] [id number] [address] [place] [phone] Jul, Paroxysmal tachycardia I47.9 [place] [address] [id number] [address] [place] [phone] Jun, [facility] [address] [facility] [id number] [address] [place] [phone] Jun, Major depressive disorder in partial remission F32.4 ; FRANCIS (generalized anxiety disorder) F41.1 and Conversion disorder (or hysterical neurosis, conversion type) F44.9 [facility] [address] [facility] [id number] [address] [place] [phone] May, Pelvic pain R10.2 [facility] [address] [facility] [id number] [address] [place] [phone] 30 Apr, 2016 Gastroenteritis K52.9 [facility] [address] [facility] [id number] [address] [place] [phone] 17 Apr, 2016 Blood in urine R31.9 and Acu te cystitis with hematuria N30.01 [facility] [address] [place] [id number] [place] [phone] 17 Apr, 2016 Major depressive disorder in partial remission F32.4 ; FRANCIS (generalized anxiety disorder) F41.1 and Conversion disorder (or hysterical neurosis, conversion type) F44.9 [place] [address] [place] [id number] [place] [phone] Apr, [place] [address] [phone] Apr, Abnormal mammogram R92.8 [place] [address] [place] [id number] [place] [phone] Mar, [place] [address] [place] [id number] [place] [phone] Mar, Gastroenteritis K52.9 and Se izure disorder G40.909 [place] [address] [place] [id number] [address] [place] [phone] Dec, [facility] [address] [place] [id number] [address] [place] [phone] Dec, Other headache syndrome G44. 89 [place] [address] [place] [id number] [address] [place] [phone] Dec, [facility] [address] [facility] [id number] [address] [place] [phone] Dec, Thoracic disc herniation M51 .24 [place] [address] [place] [id number] [address] [place] [phone] Dec, [facility] [address] [id number] [address] [place] [phone] Nov, Major depressive disorder in partial remission F32.4 and FRANCIS (generalized anxiety disorder) F41.1 [facility] [address] [id number] [address] [place] [phone] Nov, [facility] [address] [id number] [address] [place] [phone] Nov, Dorsalgia, unspecified M54.9 [facility] [address] [id number] [address] [place] [phone] Oct, [facility] [address] [id number] [address] [place] [phone] September, [facility] [address] [id number] [address] [place] [phone] Aug, [facility] [address] [id number] [address] [place] [phone] Aug, Major depressive disorder in partial remission F32.4 and FRANCIS (generalized anxiety disorder) F41.1 [facility] [address] [id number] [address] [place] [phone] Aug, [facility] [address] [id number] [address] [place] [phone] Jul, Abnormal mammogram R92.8 [facility] [address] [id number] [address] [place] [phone] Jul, [facility] [address] [id number] [address] [place] [phone] Jul, [facility] [address] [id number] [address] [place] [phone] [address], [address] [facility] [address] [id number] [address] [place] [phone] Jul, [facility] [address] [id number] [address] [place] [phone] Jul, [facility] [address] [id number] [address] [place] [phone] Jul, [facility] [address] [facility] [id number] [address] [place] [phone] Jun, Major depressive disorder in partial remission F32.4 and FRANCIS (generalized anxiety disorder) F41.1 [facility] [address] [id number] [address] [place] [phone] Jun, [facility] [address] [id number] [address] [place] [phone] May, [facility] [address] [id number] [address] [place] [phone] Apr, [facility] [address] [facility] [id number] [address] [place] [phone] Mar, Major depressive disorder, r ecurrent episode, moderate F33.1 ; PTSD (post-traumatic stress disorder) F43.10 and FRANCIS (generalized anxiety disorder) F41.1 [facility] [address] [id number] [address] [place] [phone] Mar, [facility] [address] [id number] [address] [place] [phone] Mar, [facility] [address] [id number] [address] [place] [phone] Mar, [facility] [address] [id number] [address] [place] [phone] Mar, [facility] [address] [id number] [address] [place] [phone] Jan, [facility] [address] [id number] [address] [place] [phone] Jan, [facility] [address] [id number] [address] [place] [phone] Jan, [facility] [address] [id number] [address] [place] [phone] 14 Jan, 2015 Thoracic disc herniation 722 .11 [facility] [address] [id number] [address] [place] [phone] Dec, [facility] [address] [id number] [address] [place] [phone] Dec, [facility] [address] [id number] [address] [place] [phone] Dec, [facility] [address] [id number] [address] [place] [phone] Nov, [facility] [address] [id number] [address] [place] [phone] Nov, Generalized anxiety disorder 300.02 ; Posttraumatic stress disorder 309.81 and Major depressive disorder, recurrent episode, moderate 296.32 [facility] [address] [id number] [address] [place] [phone] Nov, [facility] [address] [id number] [address] [place] [phone] Nov, [facility] [address] [id number] [address] [place] [phone] Oct, [facility] [address] [id number] [address] [place] [phone] [address], [address] [facility] [address] [id number] [address] [place] [id number] Oct, [facility] [address] [id number] [address] [place] [id number] September, [facility] [address] [id number] [address] [place] [id number] September, [facility] [address] [facility] [id number] [address] [place] [id number] Aug, [facility] [address] [id number] [address] [place] [phone] Aug, [facility] [address] [id number] [address] [place] [address], [place] [id number] Jul, [facility] [address] [id number] [address] [place] [address], [place] [id number] Jul, [facility] [address] [id number] [address] [place] [address], [place] [id number] 17 Jul, 2014 [facility] [address] [id number] [address] [place] [address], [place] [id number] 17 Jul, 2014 [facility] [address] [id number] [address] [place] [address], [place] [id number] 16 Jul, 2014 [facility] [address] [id number] [address] [place] [address], [place] [id number] Jul, [facility] [address] [id number] [address] [place] [address], [place] [id number] Jul, [facility] [address] [id number] [address] [place] [address], [place] [id number] Jul, [facility] [address] [id number] [address] [place] [address], [place] [id number] Jul, [facility] [address] [id number] [address] [place] [address], [place] [id number] Jul, [facility] [address] [id number] [address] [place] [address], [place] [address] Jun, [facility] [address] [id number] [address] [place] [address] Jun, [facility] [address] [id number] [address] [place] [address], [place] [address] Jun, [facility] [address] [id number] [address] [place] [address], [place] [address] May, [facility] [address] [id number] [address] [place] [address], [place] [address] Apr, [facility] [address] [id number] [address] [place] [address], [place] [address] Apr, [facility] [address] [id number] [address] [place] [address], [place] [address] Apr, [facility] [address] [id number] [address] [place] [address], [place] [address] Apr, [facility] [address] [id number] [address] [place] [address], [place] [address] Apr, [facility] [address] [id number] [address] [place] [address], [place] [address] Apr, [facility] [address] [id number] [address] [place] [address], [place] [address] Apr, [facility] [address] [id number] [address] [place] [address], [place] [address] Apr, [facility] [address] [id number] [address] [place] [address], [place] [address] Mar, [facility] [address] [id number] [address] [place] [address], [place] [address] Mar, [facility] [address] [id number] [address] [place] [address], [place] [address] Mar, [facility] [address] [id number] [address] [place] [address], [place] [address] Mar, [facility] [address] [id number] [address] [place] [address], [place] [address] Mar, [facility] [address] [id number] [address] [place] [address], [place] [address] Mar, [facility] [address] [id number] [address] [place] [address], [place] [address] Mar, [facility] [address] [id number] [address] [place] [address], [place] [address] Mar, [facility] [address] [id number] [address] [place] [address], [place] [address] Mar, [facility] [address] [id number] [address] [place] [address], [place] [address] Mar, 2013 [facility] [address] [id number] [address] [place] [address], [place] [address] 17 Mar, 2014 [facility] [address] [id number] [address] [place] [address], [place] [address] 14 Mar, 2014 [facility] [address] [id number] [address] [place] [address], [place] [address] 14 Mar, 2014 [facility] [address] [id number] [address] [place] [address], [place] [address] 07 Mar, 2014 [facility] [address] [id number] [address] [place] [address], [place] [address] 07 Mar, 2014 [facility] [address] [id number] [address] [place] [address], [place] [address] Mar, [facility] [address] [id number] [address] [place] [address], [place] [address] Mar, [facility] [address] [id number] [address] [place] [address], [place] [address] 19 Jan, 2013 [facility] [address] [id number] [address] [place] [address], [place] [address] 19 Jan, 2013 [facility] [address] [id number] [address] [place] [address], [place] [address] 09 Sep, 2013 [facility] [address] [id number] [address] [place] [address], [place] [address] 09 Sep, 2013 [facility] [address] [id number] [address] [place] [address], [place] [address] 05 Sep, 2013 [facility] [address] [id number] [address] [place] [address], [place] [address] 05 Sep, 2013 [facility] [address] [id number] [address] [place] [address], [place] [address] 05 Sep, 2013 [facility] [address] [id number] [address] [place] [address], [place] [address] 05 Jan, 2013 [facility] [address] [id number] [address] [place] [address], [place] [address] Jan, 2013 [facility] [address] [id number] [address] [place] [address], [place] [address] Jan, [facility] [address] [id number] [address] [place] [address], [place] [address] Jan, 2013 [facility] [address] [id number] [address] [place] [address], [place] [address] Jan, 2013 [facility] [address] [id number] [address] [place] [address], [place] [address] Jan, [facility] [address] [id number] [address] [place] [address], [place] [address] Dec, [facility] [address] [id number] [address] [place] [address], [place] [address] Dec, [facility] [address] [id number] [address] [place] [address], [place] [address] Dec, [facility] [address] [id number] [address] [place] [address], [place] [address] Dec, [facility] [address] [id number] [address] [place] [address], [place] [address] Dec, [facility] [address] [id number] [address] [place] [address], [place] [address] Dec, [facility] [address] [place] [id number] Dec, [facility] [address] [place] [id number] Dec, [facility] [address] [id number] [address] [place] [address], [place] [address] Dec, [facility] [address] [id number] [address] [place] [address], [place] [address] Dec, [facility] [address] [id number] [address] [place] [address], [place] [address] Dec, [facility] [address] [id number] [facility] [place] [address] Dec, [facility] [address] [id number] [facility] [place] [address] Nov, [facility] [address] [id number] [facility] [place] [address] Nov, [facility] [address] [id number] [address] [place] [address], [place] [address] Nov, [facility] [address] [id number] [facility] [place] [address] Nov, [facility] [address] [id number] [address] [place] [address], [place] [address] Nov, [facility] [address] [id number] [address] [place] [address], [place] [address] Nov, [facility] [address] [id number] [address] [place] [address], [place] [address] Nov, [facility] [address] [id number] [address] [place] [address], [place] [address] Nov, [facility] [address] [id number] [address] [place] [address], [place] [address] Nov, [facility] [address] [id number] [address] [place] [address], [place] [address] Nov, [facility] [address] [id number] [address] [place] [address], [place] [address] Nov, [facility] [address] [id number] [address] [place] [address], [place] [address] Nov, [facility] [address] [id number] [address] [place] [address], [place] [address] Nov, [facility] [address] [id number] [address] [place] [address], [place] [address] Oct, [facility] [address] [id number] [facility] [place] [address] Oct, [facility] [address] [id number] [address] [place] [address], [place] [address] Oct, [facility] [address] [id number] [address] [place] [address], [place] [address] Oct, [facility] [address] [id number] [address] [place] [address], [place] [address] Oct, [facility] [address] [id number] [address] [place] [address], [place] [address] Oct, [facility] [address] [id number] [address] [place] [address], [place] [address] Oct, [facility] [address] [id number] [address] [place] [address], [place] [address] Oct, [facility] [address] [id number] [address] [place] [address], [place] [address] Oct, [facility] [address] [id number] [address] [place] [address], [place] [address] Oct, [facility] [address] [id number] [address] [place] [address], [place] [address] Oct, [facility] [address] [id number] [address] [place] [address], [place] [address] Oct, [facility] [address] [id number] [address] [place] [address], [place] [address] September, [facility] [address] [id number] [address] [place] [address], [place] [address] September, [facility] [address] [id number] [address] [place] [address], [place] [address] September, [facility] [address] [id number] [address] [place] [address], [place] [address] September, [facility] [address] [id number] [address] [place] [address], [place] [address] Aug, [facility] [address] [id number] [facility] [address] Aug, [facility] [address] [id number] [facility] [place] [address] Aug, [facility] [address] [id number] [facility] [place] [address] Aug, [facility] [address] [id number] [address] [place] [address], [place] [address] Aug, [facility] [address] [id number] [facility] [place] [address] Aug, [facility] [address] [id number] [address] [place] [address], [place] [address] Aug, [facility] [address] [id number] [address] [place] [address], [place] [address] Jul, [facility] [address] [id number] [address] [place] [address], [place] [address] Jul, [facility] [address] [id number] [address] [place] [address], [place] [address] Jul, [facility] [address] [id number] [address] [place] [address], [place] [address] Jul, [facility] [address] [id number] [address] [place] [address], [place] [address] Jul, [facility] [address] [id number] [address] [place] [address], [place] [address] Jul, [facility] [address] [id number] [address] [place] [address], [place] [address] 18 Jul, 2013 [facility] [address] [id number] [address] [place] [address], [place] [address] Jul, [facility] [address] [id number] [address] [place] [address], [place] [address] 18 Jul, 2013 [facility] [address] [id number] [address] [place] [address], [place] [address] 18 Jul, 2013 [facility] [address] [id number] [address] [place] [address], [place] [address] 18 Jul, 2013 [facility] [address] [id number] [address] [place] [address], [place] [address] 18 Jul, 2013 [facility] [address] [id number] [address] [place] [address], [place] [address] 14 Jul, 2013 [facility] [address] [id number] [address] [place] [address], [place] [address] 14 Jul, 2013 [facility] [address] [id number] [address] [place] [address], [place] [address] Jul, [facility] [address] [id number] [address] [place] [address], [place] [address] 11 Jul, 2013 [facility] [address] [id number] [address] [place] [address], [place] [address] Jul, [facility] [address] [id number] [address] [place] [address], [place] [address] 11 Jul, 2013 [facility] [address] [id number] [address] [place] [address], [place] [address] Jun, [facility] [address] [id number] [address] [place] [address], [place] [address] 31 Jun, 2013 [facility] [address] [id number] [address] [place] [address], [place] [address] Jun, [facility] [address] [id number] [address] [place] [address], [place] [address] 15 Jun, 2013 [facility] [address] [id number] [address] [place] [address], [place] [address] 14 Jun, 2013 [facility] [address] [id number] [address] [place] [address], [place] [address] 14 Jun, 2013 [facility] [address] [id number] [address] [place] [address], [place] [address] 14 Jun, 2013 [facility] [address] [id number] [address] [place] [address], [place] [address] 14 Jun, 2013 [facility] [address] [id number] [address] [place] [address], [place] [address] 14 Jun, 2013 [facility] [address] [id number] [address] [place] [address], [place] [address] 14 Jun, 2013 [facility] [address] [id number] [address] [place] [address], [place] [address] 27 May, 2013 [facility] [address] [id number] [address] [place] [address], [place] [address] 27 May, 2013 [facility] [address] [id number] [address] [place] [address], [place] [address] 26 May, 2013 [facility] [address] [id number] [address] [place] [address], [place] [address] 19 May, 2013 [facility] [address] [id number] [address] [place] [address], [place] [address] 19 May, 2013 [facility] [address] [id number] [address] [place] [address], [place] [address] 16 May, 2013 [facility] [address] [id number] [address] [place] [address], [place] [address] 16 May, 2013 [facility] [address] [id number] [address] [place] [address], [place] [address] 16 May, 2013 [facility] [address] [id number] [address] [place] [address], [place] [address] 16 May, 2013 [facility] [address] [id number] [address] [place] [address], [place] [address] 13 May, 2013 [facility] [address] [id number] [address] [place] [address], [place] [address] 13 May, 2013 [facility] [address] [id number] [address] [place] [address], [place] [address] 11 May, 2013 [facility] [address] [id number] [address] [place] [address] Apr, [facility] [address] [id number] [address] [place] [address], [place] [address] Apr, [facility] [address] [id number] [address] [place] [address] 18 Apr, 2013 [facility] [address] [id number] [address] [place] [address], [place] [address] Apr, [facility] [address] [id number] [address] [place] [address] 13 Apr, 2013 [facility] [address] [id number] [address] [place] [address], [place] [address] 08 Apr, 2013 [facility] [address] [id number] [address] [place] [address] 08 Apr, 2013 [facility] [address] [id number] [address] [place] [address] Apr, [facility] [address] [id number] [address] [place] [address] Apr, [facility] [address] [id number] [address] [place] [address] Apr, [facility] [address] [id number] [address] [place] [address] Apr, [facility] [address] [id number] [address] [place] [address] Mar, [facility] [address] [id number] [address] [place] [address] Mar, [facility] [address] [id number] [address] [place] [address] Mar, [facility] [address] [id number] [address] [place] [address] Mar, [facility] [address] [id number] [address] [place] [address], [place] [address] Mar, [facility] [address] [id number] [address] [place] [address], [place] [address] Mar, [facility] [address] [id number] [address] [place] [address], [place] [address] Mar, [facility] [address] [id number] [address] [place] [address], [place] [address] Mar, [facility] [address] [id number] [address] [place] [address], [place] [address] Mar, [facility] [address] [id number] [address] [place] [address], [place] [address] Mar, [facility] [address] [id number] [address] [place] [address], [place] [address] Mar, [facility] [address] [id number] [address] [place] [address], [place] [address] Mar, [facility] [address] [id number] [address] [place] [address], [place] [address] 30 Jan, 2013 [facility] [address] [id number] [address] [place] [address], [place] [address] Jan, [facility] [address] [id number] [address] [place] [address], [place] [address] Jan, [facility] [address] [id number] [address] [place] [address], [place] [address] Jan, [facility] [address] [id number] [address] [place] [address], [place] [address] Dec, [facility] [address] [id number] [address] [place] [address], [place] [address] Dec, [facility] [address] [id number] [address] [place] [address], [place] [address] Dec, [facility] [address] [id number] [address] [place] [address], [place] [address] Dec, [facility] [address] [id number] [address] [place] [address], [place] [address] Dec, [facility] [address] [id number] [address] [place] [address], [place] [address] Dec, [facility] [address] [id number] [address] [place] [address], [place] [address] Dec, [facility] [address] [id number] [address] [place] [address], [place] [address] Dec, [facility] [address] [id number] [address] [place] [address], [place] [address] Dec, [facility] [address] [id number] [address] [place] [address], [place] [address] Nov, [facility] [address] [id number] [address] [place] [address], [place] [address] Nov, [facility] [address] [id number] [address] [place] [address], [place] [address] Nov, [facility] [address] [id number] [address] [place] [address], [place] [address] Nov, [facility] [address] [id number] [address] [place] [address], [place] [address] Nov, [facility] [address] [id number] [address] [place] [address], [place] [address] Nov, [facility] [address] [id number] [address] [place] [address], [place] [address] Nov, [facility] [address] [id number] [address] [place] [address], [place] [address] Nov, [facility] [address] [id number] [address] [place] [address], [place] [address] Oct, [facility] [address] [id number] [address] [place] [address], [place] [address] Oct, [facility] [address] [id number] [address] [place] [address], [place] [address] Oct, [facility] [address] [id number] [address] [place] [address], [place] [address] Oct, [facility] [address] [id number] [address] [place] [address], [place] [address] Oct, [facility] [address] [id number] [address] [place] [address], [place] [address] Oct, [facility] [address] [id number] [address] [place] [address], [place] [address] Oct, [facility] [address] [id number] [address] [place] [address], [place] [address] Oct, [facility] [address] [id number] [address] [place] [address], [place] [address] Oct, [facility] [address] [id number] [address] [place] [address], [place] [address] 18 Oct, 2012 [facility] [address] [id number] [address] [place] [address], [place] [address] 17 Oct, 2012 [facility] [address] [id number] [address] [place] [address], [place] [address] 14 Oct, 2012 [facility] [address] [id number] [address] [place] [address], [place] [address] 07 Oct, 2012 [facility] [address] [id number] [address] [place] [address], [place] [address] 30 Sep, 2012 [facility] [address] [id number] [address] [place] [address], [place] [address] September, [facility] [address] [id number] [address] [place] [address], [place] [address] September, [facility] [address] [id number] [address] [place] [address], [place] [address] Aug, [facility] [address] [id number] [address] [place] [address], [place] [address] 24 Aug, 2012 [facility] [address] [id number] [address] [place] [address], [place] [address] 18 Aug, 2012 [facility] [address] [id number] [address] [place] [address], [place] [address] 18 Aug, 2012 [facility] [address] [id number] [address] [place] [address], [place] [address] 18 Aug, 2012 [facility] [address] [id number] [address] [place] [address], [place] [address] 08 Aug, 2012 [facility] [address] [id number] [address] [place] [address], [place] [address] 05 Aug, 2012 [facility] [address] [id number] [address] [place] [address], [place] [address] Jul, [facility] [address] [id number] [address] [place] [address], [place] [address] Jul, [facility] [address] [id number] [address] [place] [address], [place] [address] Jul, [facility] [address] [id number] [address] [place] [address], [place] [address] Jul, [facility] [address] [id number] [address] [place] [address], [place] [address] Jul, [facility] [address] [id number] [address] [place] [address], [place] [address] Jul, [facility] [address] [id number] [address] [place] [address], [place] [address] Jul, [facility] [address] [id number] [address] [place] [address] Jul, [facility] [address] [id number] [address] [place] [address], [place] [address] Jul, [facility] [address] [id number] [address] [place] [address], [place] [address] Jul, [facility] [address] [id number] [address] [place] [address], [place] [address] Jul, [facility] [address] [id number] [address] [place] [address], [place] [address] 06 Jul, 2012 [facility] [address] [id number] [address] [place] [address], [place] [address] Jul, [facility] [address] [id number] [address] [place] [address], [place] [address] 24 Jun, 2012 [facility] [address] [id number] [address] [place] [address], [place] [address] Jun, [facility] [address] [id number] [address] [place] [address], [place] [address] Jun, [facility] [address] [id number] [address] [place] [address], [place] [address] 17 Jun, 2012 [facility] [address] [id number] [address] [place] [address], [place] [address] 15 Jun, 2012 [facility] [address] [id number] [address] [place] [address], [place] [address] Jun, [facility] [address] [id number] [address] [place] [address], [place] [address] Jun, [facility] [address] [id number] [address] [place] [address], [place] [address] May, [facility] [address] [id number] [address] [place] [address], [place] [address] May, [facility] [address] [id number] [address] [place] [address], [place] [address] May, [facility] [address] [id number] [address] [place] [address], [place] [address] May, [facility] [address] [id number] [address] [place] [address], [place] [address] May, [facility] [address] [id number] [address] [place] [address], [place] [address] 24 May, 2012 [facility] [address] [id number] [address] [place] [address], [place] [address] May, [facility] [address] [id number] [address] [place] [address], [place] [address] May, [facility] [address] [id number] [address] [place] [address], [place] [address] May, [facility] [address] [id number] [address] [place] [address], [place] [address] May, [facility] [address] [id number] [address] [place] [address], [place] [address] Apr, [facility] [address] [id number] [address] [place] [address], [place] [address] Apr, [facility] [address] [id number] [address] [place] [address], [place] [address] Apr, [facility] [address] [id number] [address] [place] [address], [place] [address] Apr, [facility] [address] [id number] [address] [place] [address], [place] [address] Apr, [facility] [address] [id number] [address] [place] [address], [place] [address] Apr, [facility] [address] [id number] [address] [place] [address], [place] [address] Apr, [facility] [address] [id number] [address] [place] [address], [place] [address] Apr, [facility] [address] [id number] [address] [place] [address], [place] [address] Apr, [facility] [address] [id number] [address] [place] [address], [place] [address] Apr, [facility] [address] [id number] [address] [place] [address], [place] [address] Apr, [facility] [address] [id number] [address] [place] [address], [place] [address] Apr, [facility] [address] [id number] [address] [place] [address], [place] [address] Mar, 2011 [facility] [address] [id number] [address] [place] [address], [place] [address] 31 Mar, 2011 [facility] [address] [id number] [address] [place] [phone] Mar, 2011 [facility] [address] [id number] [address] [place] [phone] Mar, 2011 [facility] [address] [id number] [address] [place] [phone] Mar, 2011 [facility] [address] [id number] [address] [place] [address], [place] [address] Mar, 2011 [facility] [address] [id number] [address] [place] [phone] Mar, 2011 [facility] [address] [id number] [address] [place] [address] Mar, 2011 [facility] [address] [id number] [address] [place] [address] Mar, 2011 [facility] [address] [id number] [address] [place] [address] Mar, 2011 [facility] [address] [id number] [address] [place] [address] Mar, 2011 [facility] [address] [id number] [address] [place] [phone] Mar, 2011 [facility] [address] [id number] [address] [place] [phone] Mar, 2011 [facility] [address] [id number] [address] [place] [phone] Mar, [facility] [address] [id number] [address] [place] [phone] Mar, [facility] [address] [id number] [address] [place] [address] Mar, [facility] [address] [id number] [facility] [address] 25 Sep, 2011 [facility] [address] [id number] [address] [place] [address], [place] [address] 24 Sep, 2011 [facility] [address] [id number] [address] [place] [address], [place] [address] 22 Sep, 2011 [facility] [address] [id number] [address] [place] [address], [place] [address] 22 Sep, 2011 [facility] [address] [id number] [address] [place] [address], [place] [address] 21 Sep, 2011 [facility] [address] [id number] [address] [place] [address], [place] [address] 18 Sep, 2011 [facility] [address] [id number] [address] [place] [address], [place] [address] 14 Jan, 2011 [facility] [address] [id number] [address] [place] [address], [place] [address] 07 Jan, 2011 [facility] [address] [id number] [address] [place] [address], [place] [address] 15 Dec, 2011 [facility] [address] [id number] [address] [place] [address], [place] [address] 10 Dec, 2011 [facility] [address] [id number] [address] [place] [address], [place] [address] 09 Dec, 2011 [facility] [address] [id number] [address] [place] [address], [place] [address] 08 Dec, 2011 [facility] [address] [id number] [address] [place] [address], [place] [address] Dec, [facility] [address] [id number] [address] [place] [address], [place] [address] Dec, [facility] [address] [id number] [address] [place] [address], [place] [address] Dec, [facility] [address] [id number] [address] [place] [address], [place] [address] Nov, [facility] [address] [id number] [address] [place] [address], [place] [address] 06 Oct, 2011 [facility] [address] [id number] [address] [place] [address], [place] [address] 05 Aug, 2011 [facility] [address] [id number] [address] [place] [address], [place] [address] 22 Jul, 2011 [facility] [address] [id number] [address] [place] [address], [place] [address] 19 Jul, 2011 [facility] [address] [id number] [address] [place] [address], [place] [address] 16 Jul, 2011 [facility] [address] [id number] [address] [place] [address], [place] [address] 14 Jul, 2011 [facility] [address] [id number] [address] [place] [address], [place] [address] 07 Jul, 2011 [facility] [address] [id number] [address] [place] [address], [place] [address] Jul, [facility] [address] [id number] [address] [place] [address], [place] [address] Jul, [facility] [address] [id number] [address] [place] [address], [place] [address] 15 Jul, 2011 [facility] [address] [id number] [address] [place] [address], [place] [address] Jul, [facility] [address] [id number] [address] [place] [address], [place] [address] Jul, [facility] [address] [id number] [address] [place] [address], [place] [address] Jul, [facility] [address] [id number] [address] [place] [address], [place] [address] Jun, [facility] [address] [id number] [address] [place] [address], [place] [address] Jun, [facility] [address] [id number] [address] [place] [address], [place] [address] 13 Jun, 2011 [facility] [address] [id number] [address] [place] [address], [place] [address] 11 Jun, 2011 [facility] [address] [id number] [address] [place] [address], [place] [address] 06 Jun, 2011 [facility] [address] [id number] [address] [place] [address], [place] [address] Jun, [facility] [address] [id number] [address] [place] [address], [place] [address] Jun, [facility] [address] [id number] [address] [place] [address], [place] [address] May, [facility] [address] [id number] [address] [place] [address], [place] [address] May, [facility] [address] [id number] [address] [place] [address], [place] [address] May, [facility] [address] [id number] [address] [place] [address], [place] [address] May, [facility] [address] [id number] [address] [place] [address], [place] [address] May, [facility] [address] [id number] [address] [place] [address], [place] [address] May, [facility] [address] [id number] [address] [place] [address], [place] [address] May, [facility] [address] [id number] [address] [place] [address], [place] [address] May, [facility] [address] [id number] [address] [place] [address], [place] [address] 06 May, 2011 [facility] [address] [id number] [address] [place] [address], [place] [address] 03 May, 2011 [facility] [address] [id number] [address] [place] [address], [place] [address] [address], [address] [facility] [address] [id number] [address] [place] [address] Apr, [facility] [address] [id number] [address] [place] [phone] Apr, [facility] [address] [id number] [address] [place] [address] Apr, [facility] [address] [id number] [address] [place] [address] Mar, [facility] [address] [id number] [address] [place] [phone] Mar, [facility] [address] [id number] [address] [place] [phone] Mar, [facility] [address] [id number] [address] [place] [address] Mar, IMMUNIZATIONS Vaccine Route Administration Date Status PRIVATE TDAP (ADACEL) Unknown December 28, 2012 Administer ed SOCIAL HISTORY Never Assessed REASON FOR VISIT PLAN OF CARE VITAL SIGNS Height 61 in 2012-12-28 Weight 165.4 lbs 2012-12-28 Temperature 97.3 degrees Fahrenheit 2012-12-28 Heart Rate 124 bpm 2012-12-28 Respiratory Rate 20 2012-12-28 Blood pressure systolic 118 mmHg 2012-12-28 Blood pressure diastolic 90 mmHg 2012-12-28 MEDICATIONS Unknown Medications RESULTS No Results PROCEDURES Procedure Date Ordered Result Body Site MEASURE BLOOD OXYGEN LEVEL December 28, 2012 URINE CULTURE/COLONY COUNT December 28, 2012 URINALYSIS, AUTO, W/O SCOPE December 28, 2012 INSTRUCTIONS MEDICATIONS ADMINISTERED No Known Medications [...]
--- OUTSIDE RECORDS SUMMARY | 2020-01-03 17:48 | XMS REPORT ---
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 Name Role Phone RAFAEL YUNGELA Unavailable PROBLEMS Type Condition ICD9-CM Code VSD01-LN Code Onset Dates Condition S tatus SNOMED Code Problem FRANCIS (generalized anxiety disorder) F41.1 Active 58878857 Problem Thoracic disc herniation M51.24 Activ e 203401034 Problem Major depressive disorder in partial remission F32 .4 Active 62238856 Problem Seizure disorder G40.909 Active 128 085705 Problem Conversion disorder (or hysterical neurosis, conversion ty pe) F44.9 Active 41384849 Problem Constipation, unspecified constipation type K59.00 Active 20547945 Problem Mild episode of recurrent major depressive disorder F33.0 Active 173193015 Problem Restless leg syndrome G25.81 Active 06437866 Problem Nonadherence to medication Z91.14 Act vivian 458228959 Problem Slow transit constipation K59.01 Acti ve 12099051 Problem Atrophic vaginitis N95.2 Active 5 1310229 Problem Paroxysmal tachycardia I47.9 Active 96747386 Problem Other chronic pain G89.29 Active 8 1465711 Problem Mild intermittent asthma without complication J45. 20 Active 951879863 Problem Obesity (BMI 30.0-34.9) E66.9 Active [id number] Problem High blood pressure I10 Active 47609104 ALLERGIES No Information ENCOUNTERS Encounter Location Date Diagnosis [facility] [address] [facility] [id number] [address] [place] [phone] Nov, [facility] [address] [facility] [id number] [address] [place] [phone] Nov, [id number] [place] [id number] Oct, Breast cancer screening Z12.[address] [id number] [address] 08 Oct, 2019 Breast cancer screening Z12. 39 [facility] [address] [facility] [id number] [address] [place] [phone] Oct, [facility] [address] [facility] [id number] [address] [place] [phone] Oct, [facility] [address] [facility] [id number] [address] [place] [phone] September, [facility] [address] [id number] [address] [place] [phone] September, [facility] [address] [facility] [id number] [address] [place] [id number] September, Well woman exam with routine gynecological exam Z01.419 and Atrophic vaginitis N95.2 [facility] [address] [facility] [id number] [address] [place] [phone] September, Major depressive disorder in partial remission F32.4 ; FRANCIS (generalized anxiety disorder) F41.1 ; Restless leg syndrome G25.81 and Nonadherence to medication Z91.14 [facility] [address] [facility] [id number] [address] [place] [phone] September, [facility] [address] [facility] [id number] [address] [place] [phone] Aug, [facility] [address] [place] [id number] [address] [place] [phone] Aug, Dental examination Z01.20 [facility] [address] [id number] [address] [place] [phone] Aug, Dental examination Z01.20 an d Caries K02.9 [facility] [address] [id number] [address] [place] [phone] Aug, [facility] [address] [facility] [id number] [address] [place] [phone] Aug, [facility] [address] [id number] [address] [place] [id number] 11 Aug, 2019 Other chronic pain G89.29 an d Back muscle spasm M62.830 [facility] [address] [id number] [address] [place] [phone] 07 Aug, 2019 [facility] [address] [id number] [address] [place] [phone] Aug, Major depressive disorder in partial remission F32.4 ; FRANCIS (generalized anxiety disorder) F41.1 ; Restless leg syndrome G25.81 and Nonadherence to medication Z91.14 [facility] [address] [id number] [address] [place] [phone] Aug, [facility] [address] [id number] [address] [place] [phone] Jul, [facility] [address] [id number] [address] [place] [phone] Jul, [facility] [address] [id number] [address] [place] [id number] Jul, Major depressive disorder in partial remission F32.4 ; FRANCIS (generalized anxiety disorder) F41.1 ; Restless leg syndrome G25.81 and High blood pressure I10 [facility] [address] [id number] [address] [place] [phone] 17 Jul, 2019 [facility] [address] [id number] [address] [place] [phone] Jul, [facility] [address] [id number] [address] [place] [phone] Jun, [facility] [address] [id number] [address] [place] [phone] May, [facility] [address] [id number] [address] [place] [phone] Apr, [facility] [address] [id number] [address] [place] [phone] Apr, [facility] [address] [id number] [address] [place] [phone] Mar, [facility] [address] [facility] [id number] [address] [place] [phone] Mar, Major depressive disorder in partial remission F32.4 ; FRANCIS (generalized anxiety disorder) F41.1 and Restless leg syndrome G25.81 [facility] [address] [id number] [address] [place] [phone] Mar, Obesity (BMI 30.0-34.9) E66. 9 [facility] [address] [id number] [address] [place] [phone] Jan, [facility] [address] [facility] [id number] [address] [place] [phone] Jan, Burn T30.0 [facility] [address] [facility] [id number] [address] [place] [phone] Dec, [facility] [address] [id number] [address] [place] [phone] Nov, [facility] [address] [id number] [address] [place] [phone] Nov, [facility] [address] [id number] [address] [place] [phone] Nov, Dental examination Z01.20 [facility] [address] [id number] [address] [place] [phone] September, [facility] [address] [id number] [address] [place] [address] [phone] September, Decay, teeth K02.9 and Denta l examination Z01.20 [facility] [address] [id number] [address] [place] [id number] September, Dental examination Z01.20 [facility] [address] [id number] [address] [place] [id number] September, FRANCIS (generalized anxiety dis order) F41.1 ; Major depressive disorder in partial remission F32.4 and Restless leg syndrome G25.81 [facility] [address] [facility] [id number] [address] [place] [phone] Aug, [facility] [address] [facility] [id number] [address] [place] [phone] Jul, [facility] [address] [facility] [id number] [address] [place] [phone] Jul, Encounter to discuss test re sults Z71.2 [facility] [address] [facility] [id number] [address] [place] [id number] Jul, Pelvic pain R10.2 ; Screenin g for breast cancer Z12.31 and Obesity (BMI 30.0-34.9) E66.9 [facility] [address] [facility] [id number] [address] [place] [phone] Jul, Mild intermittent asthma wit hout complication J45.20 [facility] [address] [facility] [id number] [address] [place] [phone] Jul, Major depressive disorder in partial remission F32.4 and FRANCIS (generalized anxiety disorder) F41.1 [facility] [address] [facility] [id number] [address] [place] [id number] Jul, [facility] [address] [facility] [id number] [address] [place] [phone] Jun, [facility] [address] [facility] [id number] [address] [place] [phone] May, Major depressive disorder in partial remission F32.4 ; FRANCIS (generalized anxiety disorder) F41.1 and Restless leg syndrome G25.81 [facility] [address] [facility] [id number] [address] [place] [phone] Apr, [facility] [address] [facility] [id number] [address] [place] [phone] Mar, [facility] [address] [id number] [address] [place] [phone] 21 Jan, 2018 Pain in thoracic spine M54.6 and Other chronic pain G89.29 [facility] [address] [id number] [address] [place] [phone] 14 Jan, 2018 [facility] [address] [id number] [address] [place] [phone] 11 Jan, 2018 Mild episode of recurrent ma saray depressive disorder F33.0 ; FRANCIS (generalized anxiety disorder) F41.1 and Restless leg syndrome G25.81 [facility] [address] [id number] [address] [place] [phone] Dec, [facility] [address] [id number] [address] [place] [phone] Dec, Hospital discharge follow-up Z09 [facility] [address] [id number] [address] [place] [phone] Nov, [facility] [address] [id number] [address] [place] [phone] Nov, [facility] [address] [id number] [address] [place] [phone] September, [facility] [address] [id number] [address] [place] [phone] September, [facility] [address] [id number] [address] [place] [phone] September, Major depressive disorder in partial remission F32.4 ; FRANCIS (generalized anxiety disorder) F41.1 and Restless leg syndrome G25.81 [facility] [address] [id number] [address] [place] [phone] September, [facility] [address] [id number] [address] [place] [phone] Jul, [facility] [address] [id number] [address] [place] [phone] Jul, Dorsalgia, unspecified M54.9 [facility] [address] [id number] [address] [place] [phone] Jul, Mild episode of recurrent ma saray depressive disorder F33.0 and FRANCIS (generalized anxiety disorder) F41.1 [facility] [address] [id number] [address] [place] [phone] May, [facility] [address] [id number] [address] [place] [phone] May, Dysuria R30.0 and Acute cyst itis with hematuria N30.01 [facility] [address] [id number] [address] [place] [id number] Apr, [place] [address] [facility] [id number] [address] [place] [phone] Apr, Major depressive disorder in partial remission F32.4 and FRANCIS (generalized anxiety disorder) F41.1 [place] [address] [id number] [address] [place] [id number] Mar, Paroxysmal tachycardia I47.9 [place] [address] [id number] [address] [place] [phone] Mar, Paroxysmal tachycardia I47.9 and Pain of left lower extremity M79.605 [place] [address] [id number] [address] [place] [phone] Mar, FRANCIS (generalized anxiety dis order) F41.1 and Major depressive disorder in partial remission F32.4 [facility] [address] [id number] [address] [place] [phone] Jan, [facility] [address] [id number] [address] [place] [phone] Jan, [place] [address] [facility] [id number] [address] [place] [phone] Jan, [facility] [address] [id number] [address] [place] [phone] Dec, Constipation, unspecified co nstipation type K59.00 [facility] [address] [id number] [address] [place] [phone] Dec, [facility] [address] [id number] [address] [place] [phone] Nov, [facility] [address] [facility] [id number] [address] [place] [phone] Nov, Major depressive disorder in partial remission F32.4 and FRANCIS (generalized anxiety disorder) F41.1 [facility] [address] [id number] [address] [place] [phone] Oct, Abdominal pain R10.9 and Slo w transit constipation K59.01 [facility] [address] [id number] [address] [place] [phone] Aug, Major depressive disorder in partial remission F32.4 ; FRANCIS (generalized anxiety disorder) F41.1 ; Conversion disorder (or hysterical neurosis, conversion type) F44.9 ; Dorsalgia, unspecified M54.9 and Long-term use of high-risk medication Z79.899 [place] [address] [facility] [id number] [address] [place] [phone] Aug, [facility] [address] [facility] [id number] [address] [place] [phone] Jul, Paroxysmal tachycardia I47.9 [place] [address] [facility] [id number] [address] [place] [phone] Jul, Paroxysmal tachycardia I47.9 [facility] [address] [id number] [address] [place] [phone] Jun, [place] [address] [facility] [id number] [address] [place] [phone] Jun, Major depressive disorder in partial remission F32.4 ; FRANCIS (generalized anxiety disorder) F41.1 and Conversion disorder (or hysterical neurosis, conversion type) F44.9 [facility] [address] [facility] [id number] [address] [place] [phone] May, Pelvic pain R10.2 [facility] [address] [id number] [address] [place] [phone] Apr, Gastroenteritis K52.9 [facility] [address] [id number] [address] [place] [phone] Apr, Blood in urine R31.9 and Acu te cystitis with hematuria N30.01 [facility] [address] [id number] [address] [place] [phone] Apr, Major depressive disorder in partial remission F32.4 ; FRANCIS (generalized anxiety disorder) F41.1 and Conversion disorder (or hysterical neurosis, conversion type) F44.9 [facility] [address] [facility] [id number] [address] [place] [phone] Apr, [place] [address] [facility] [id number] [place] [phone] Apr, Abnormal mammogram R92.8 [place] [address] [id number] [address] [place] [id number] Mar, [place] [address] [facility] [id number] [address] [place] [address] Mar, Gastroenteritis K52.9 and Se izure disorder G40.909 [place] [address] [facility] [id number] [address] [place] [phone] Dec, [facility] [address] [id number] [address] [place] [phone] Dec, Other headache syndrome G44. 89 [place] [address] [facility] [id number] [address] [place] [address] Dec, [place] [address] [facility] [id number] [address] [place] [address] Dec, Thoracic disc herniation M51 .24 [place] [address] [facility] [id number] [address] [place] [phone] Dec, [facility] [address] [id number] [address] [place] [phone] Nov, Major depressive disorder in partial remission F32.4 and FRANCIS (generalized anxiety disorder) F41.1 [facility] [address] [id number] [address] [place] [address], [place] [address] Nov, [facility] [address] [id number] [address] [place] [address] Nov, Dorsalgia, unspecified M54.9 [facility] [address] [id number] [address] [place] [phone] Oct, [facility] [address] [id number] [address] [place] [phone] September, [facility] [address] [id number] [address] [place] [phone] Aug, [facility] [address] [id number] [address] [place] [phone] Aug, Major depressive disorder in partial remission F32.4 and FRANCIS (generalized anxiety disorder) F41.1 [facility] [address] [id number] [address] [place] [phone] Aug, [facility] [address] [id number] [address] [place] [phone] Jul, Abnormal mammogram R92.8 [facility] [address] [id number] [address] [place] [phone] Jul, [facility] [address] [id number] [address] [place] [phone] Jul, [facility] [address] [id number] [address] [place] [phone] 14 Jul, 2015 [facility] [address] [id number] [address] [place] [phone] Jul, [facility] [address] [id number] [address] [place] [phone] Jul, [facility] [address] [id number] [address] [place] [phone] Jul, [facility] [address] [id number] [address] [place] [phone] Jun, Major depressive disorder in partial remission F32.4 and FRANCIS (generalized anxiety disorder) F41.1 [facility] [address] [id number] [address] [place] [phone] Jun, [facility] [address] [id number] [address] [place] [id number] May, [facility] [address] [id number] [address] [place] [phone] Apr, [facility] [address] [facility] [id number] [address] [place] [id number] Mar, Major depressive disorder, r ecurrent episode, moderate F33.1 ; PTSD (post-traumatic stress disorder) F43.10 and FRANCIS (generalized anxiety disorder) F41.1 [facility] [address] [id number] [address] [place] [phone] Mar, [facility] [address] [id number] [address] [place] [phone] Mar, [facility] [address] [id number] [address] [place] [phone] Mar, [facility] [address] [id number] [address] [place] [phone] Mar, [facility] [address] [id number] [address] [place] [phone] Jan, [facility] [address] [id number] [address] [place] [id number] Jan, [facility] [address] [id number] [address] [place] [phone] Jan, [facility] [address] [id number] [address] [place] [phone] Jan, Thoracic disc herniation 722 .11 [facility] [address] [id number] [address] [place] [phone] Dec, [facility] [address] [id number] [address] [place] [phone] Dec, [facility] [address] [id number] [address] [place] [phone] Dec, [facility] [address] [id number] [address] [place] [phone] Nov, [facility] [address] [id number] [address] [place] [phone] Nov, Generalized anxiety disorder 300.02 ; Posttraumatic stress disorder 309.81 and Major depressive disorder, recurrent episode, moderate 296.32 [facility] [address] [id number] [address] [place] [phone] Nov, [facility] [address] [id number] [address] [place] [phone] Nov, [facility] [address] [id number] [address] [place] [phone] Oct, [facility] [address] [id number] [address] [place] [phone] Oct, [facility] [address] [id number] [address] [place] [phone] Oct, [facility] [address] [id number] [address] [place] [id number] September, [facility] [address] [id number] [address] [place] [phone] September, [facility] [address] [id number] [address] [place] [id number] Aug, [facility] [address] [id number] [address] [place] [phone] Aug, [facility] [address] [id number] [address] [place] [address], [place] [id number] Jul, [facility] [address] [id number] [address] [place] [address], [place] [id number] Jul, [facility] [address] [id number] [address] [place] [address], [place] [id number] 17 Jul, 2014 [facility] [address] [id number] [address] [place] [address], [place] [id number] 17 Jul, 2014 [facility] [address] [id number] [address] [place] [address], [place] [id number] 16 Jul, 2014 [facility] [address] [id number] [address] [place] [address], [place] [id number] Jul, [facility] [address] [id number] [address] [place] [address], [place] [id number] Jul, [facility] [address] [id number] [address] [place] [address], [place] [id number] Jul, [facility] [address] [id number] [address] [place] [address], [place] [id number] Jul, [facility] [address] [id number] [address] [place] [address], [place] [id number] Jul, [facility] [address] [id number] [address] [place] [address], [place] [id number] Jun, [facility] [address] [id number] [address] [place] [address], [place] [id number] Jun, [facility] [address] [id number] [address] [place] [address], [place] [id number] Jun, [facility] [address] [id number] [address] [place] [address], [place] [id number] May, [facility] [address] [id number] [address] [place] [address], [place] [id number] Apr, [facility] [address] [id number] [address] [place] [address], [place] [id number] Apr, [facility] [address] [id number] [address] [place] [address], [place] [id number] Apr, [facility] [address] [id number] [address] [place] [address], [place] [id number] Apr, [facility] [address] [id number] [address] [place] [address], [place] [id number] Apr, [facility] [address] [id number] [address] [place] [address], [place] [id number] Apr, [facility] [address] [id number] [address] [place] [address], [place] [id number] Apr, [facility] [address] [id number] [address] [place] [address], [place] [id number] Apr, [facility] [address] [id number] [address] [place] [address], [place] [id number] Mar, [facility] [address] [id number] [address] [place] [address], [place] [address] Mar, [facility] [address] [id number] [address] [place] [address], [place] [address] Mar, [facility] [address] [id number] [address] [place] [address], [place] [address] Mar, [facility] [address] [id number] [address] [place] [address], [place] [address] Mar, [facility] [address] [id number] [address] [place] [id number] Mar, [facility] [address] [id number] [address] [place] [address], [place] [id number] Mar, [facility] [address] [id number] [address] [place] [address], [place] [address] Mar, [facility] [address] [id number] [address] [place] [address], [place] [address] Mar, [facility] [address] [id number] [address] [place] [address], [place] [address] Mar, 2013 [facility] [address] [id number] [address] [place] [address], [place] [id number] 17 Mar, 2013 [facility] [address] [id number] [address] [place] [address], [place] [id number] 14 Mar, 2013 [facility] [address] [id number] [address] [place] [address], [place] [id number] 14 Mar, 2013 [facility] [address] [id number] [address] [place] [address], [place] [id number] 07 Mar, 2013 [facility] [address] [id number] [address] [place] [address], [place] [id number] 07 Mar, 2013 [facility] [address] [id number] [address] [place] [address], [place] [id number] 06 Mar, 2013 [facility] [address] [id number] [address] [place] [address], [place] [id number] Mar, 2013 [facility] [address] [id number] [address] [place] [address], [place] [id number] 19 Sep, 2013 [facility] [address] [id number] [address] [place] [address], [place] [id number] 19 Sep, 2013 [facility] [address] [id number] [address] [place] [address], [place] [address] 09 Sep, 2013 [facility] [address] [id number] [address] [place] [address], [place] [id number] 09 Sep, 2013 [facility] [address] [id number] [address] [place] [address], [place] [id number] 05 Sep, 2013 [facility] [address] [id number] [address] [place] [address], [place] [id number] 05 Sep, 2013 [facility] [address] [id number] [address] [place] [address], [place] [id number] 05 Sep, 2013 [facility] [address] [id number] [address] [place] [address], [place] [address] 05 Sep, 2013 [facility] [address] [id number] [address] [place] [address], [place] [address] Jan, 2013 [facility] [address] [id number] [address] [place] [address], [place] [id number] Jan, [facility] [address] [id number] [address] [place] [address], [place] [address] Jan, 2013 [facility] [address] [id number] [address] [place] [address], [place] [id number] Jan, 2013 [facility] [address] [id number] [address] [place] [address], [place] [address] Jan, [facility] [address] [id number] [address] [place] [address], [place] [address] Dec, [facility] [address] [id number] [address] [place] [address], [place] [address] Dec, [facility] [address] [id number] [address] [place] [address], [place] [address] Dec, [facility] [address] [id number] [address] [place] [address], [place] [address] Dec, [facility] [address] [id number] [address] [place] [address], [place] [address] Dec, [facility] [address] [id number] [address] [place] [address], [place] [id number] Dec, [facility] [address] [place] [id number] Dec, [facility] [address] [place] [id number] Dec, [facility] [address] [id number] [address] [place] [address], [place] [address] Dec, [facility] [address] [id number] [address] [place] [address], [place] [address] Dec, [facility] [address] [id number] [address] [place] [address], [place] [address] Dec, [facility] [address] [id number] [address] [place] [address], [place] [address] Dec, [facility] [address] [id number] [address] [place] [address], [place] [address] Nov, [facility] [address] [id number] [address] [place] [address], [place] [address] Nov, [facility] [address] [id number] [address] [place] [address], [place] [address] Nov, [facility] [address] [id number] [address] [place] [address], [place] [address] Nov, [facility] [address] [id number] [address] [place] [address], [place] [id number] Nov, [facility] [address] [id number] [address] [place] [address], [place] [address] Nov, [facility] [address] [id number] [address] [place] [address], [place] [address] Nov, [facility] [address] [id number] [address] [place] [address], [place] [address] Nov, [facility] [address] [id number] [address] [place] [address], [place] [address] Nov, [facility] [address] [id number] [address] [place] [address], [place] [address] Nov, [facility] [address] [id number] [address] [place] [address], [place] [address] Nov, [facility] [address] [id number] [address] [place] [address], [place] [address] Nov, [facility] [address] [id number] [address] [place] [address], [place] [address] Nov, [facility] [address] [id number] [address] [place] [address], [place] [address] Oct, [facility] [address] [id number] [address] [place] [address], [place] [address] Oct, [facility] [address] [id number] [facility] [place] [address] Oct, [facility] [address] [id number] [address] [place] [address], [place] [address] Oct, [facility] [address] [id number] [address] [place] [address], [place] [address] Oct, [facility] [address] [id number] [address] [place] [address], [place] [address] Oct, [facility] [address] [id number] [address] [place] [address], [place] [id number] Oct, [facility] [address] [id number] [address] [place] [address], [place] [address] Oct, [facility] [address] [id number] [address] [place] [address], [place] [address] Oct, [facility] [address] [id number] [address] [place] [address], [place] [address] Oct, [facility] [address] [id number] [address] [place] [address], [place] [address] Oct, [facility] [address] [id number] [address] [place] [address], [place] [address] Oct, [facility] [address] [id number] [address] [place] [address], [place] [address] September, [facility] [address] [id number] [address] [place] [address], [place] [address] September, [facility] [address] [id number] [address] [place] [address], [place] [address] September, [facility] [address] [id number] [address] [place] [address], [place] [address] September, [facility] [address] [id number] [address] [place] [address], [place] [address] Aug, [facility] [address] [id number] [facility] [place] [address] Aug, [facility] [address] [id number] [facility] [address] Aug, [facility] [address] [id number] [facility] [place] [address] Aug, [facility] [address] [id number] [address] [place] [address], [place] [address] Aug, [facility] [address] [id number] [address] [place] [address], [place] [address] Aug, [facility] [address] [id number] [address] [place] [address], [place] [address] Aug, [facility] [address] [id number] [address] [place] [address], [place] [address] Jul, [facility] [address] [id number] [address] [place] [address], [place] [address] Jul, [facility] [address] [id number] [address] [place] [address], [place] [address] Jul, [facility] [address] [id number] [address] [place] [address], [place] [address] Jul, [facility] [address] [id number] [address] [place] [address], [place] [address] Jul, [facility] [address] [id number] [address] [place] [address], [place] [address] Jul, [facility] [address] [id number] [address] [place] [address], [place] [address] Jul, [facility] [address] [id number] [address] [place] [address], [place] [address] 18 Jul, 2013 [facility] [address] [id number] [address] [place] [address], [place] [address] Jul, [facility] [address] [id number] [address] [place] [address], [place] [address] Jul, [facility] [address] [id number] [facility] [address] 18 Jul, 2013 [facility] [address] [id number] [address] [place] [address], [place] [id number] 18 Jul, 2013 [facility] [address] [id number] [address] [place] [address], [place] [address] 14 Jul, 2013 [facility] [address] [id number] [address] [place] [address], [place] [address] 14 Jul, 2013 [facility] [address] [id number] [address] [place] [address], [place] [address] Jul, [facility] [address] [id number] [address] [place] [address], [place] [address] Jul, [facility] [address] [id number] [address] [place] [address], [place] [address] Jul, [facility] [address] [id number] [address] [place] [address], [place] [address] Jul, [facility] [address] [id number] [address] [place] [address], [place] [address] Jun, [facility] [address] [id number] [address] [place] [address], [place] [address] Jun, [facility] [address] [id number] [address] [place] [address], [place] [address] Jun, [facility] [address] [id number] [address] [place] [address], [place] [address] 15 Jun, 2013 [facility] [address] [id number] [address] [place] [address], [place] [address] Jun, [facility] [address] [id number] [address] [place] [address], [place] [address] 14 Jun, 2013 [facility] [address] [id number] [address] [place] [address], [place] [address] 14 Jun, 2013 [facility] [address] [id number] [address] [place] [address], [place] [address] 14 Jun, 2013 [facility] [address] [id number] [address] [place] [address], [place] [id number] 14 Jun, 2013 [facility] [address] [id number] [address] [place] [address], [place] [address] 14 Jun, 2013 [facility] [address] [id number] [address] [place] [address], [place] [address] 27 May, 2013 [facility] [address] [id number] [address] [place] [address], [place] [address] 27 May, 2013 [facility] [address] [id number] [address] [place] [address], [place] [address] 26 May, 2013 [facility] [address] [id number] [address] [place] [address], [place] [address] 19 May, 2013 [facility] [address] [id number] [address] [place] [address], [place] [address] 19 May, 2013 [facility] [address] [id number] [address] [place] [address], [place] [id number] 16 May, 2013 [facility] [address] [id number] [address] [place] [address], [place] [id number] 16 May, 2013 [facility] [address] [id number] [address] [place] [address], [place] [id number] 16 May, 2013 [facility] [address] [id number] [address] [place] [address], [place] [address] 16 May, 2013 [facility] [address] [id number] [address] [place] [address], [place] [address] 13 May, 2013 [facility] [address] [id number] [address] [place] [address], [place] [address] 13 May, 2013 [facility] [address] [id number] [address] [place] [address], [place] [address] 11 May, 2013 [facility] [address] [id number] [address] [place] [address], [place] [id number] Apr, [facility] [address] [id number] [address] [place] [address], [place] [address] 18 Apr, 2013 [facility] [address] [id number] [address] [place] [address], [place] [address] 18 Apr, 2013 [facility] [address] [id number] [address] [place] [address], [place] [address] Apr, [facility] [address] [id number] [address] [place] [address], [place] [address] Apr, [facility] [address] [id number] [address] [place] [address], [place] [address] Apr, [facility] [address] [id number] [address] [place] [address], [place] [address] 08 Apr, 2013 [facility] [address] [id number] [address] [place] [address], [place] [id number] Apr, [facility] [address] [id number] [address] [place] [id number] Apr, [facility] [address] [id number] [address] [place] [address], [place] [address] Apr, [facility] [address] [id number] [address] [place] [id number] Apr, [facility] [address] [id number] [address] [place] [id number] Mar, [facility] [address] [id number] [address] [place] [id number] Mar, [facility] [address] [id number] [address] [place] [address], [place] [address] Mar, [facility] [address] [id number] [address] [place] [id number] Mar, [facility] [address] [id number] [address] [place] [address], [place] [id number] Mar, [facility] [address] [id number] [address] [place] [address], [place] [address] Mar, [facility] [address] [id number] [address] [place] [address], [place] [id number] Mar, [facility] [address] [id number] [address] [place] [address], [place] [address] Mar, [facility] [address] [id number] [address] [place] [address], [place] [address] Mar, [facility] [address] [id number] [address] [place] [address], [place] [address] Mar, [facility] [address] [id number] [address] [place] [address], [place] [id number] Mar, [facility] [address] [id number] [address] [place] [address], [place] [address] Mar, [facility] [address] [id number] [address] [place] [address], [place] [address] 30 Jan, 2013 [facility] [address] [id number] [address] [place] [address], [place] [address] Jan, [facility] [address] [id number] [address] [place] [address], [place] [id number] 20 Jan, 2013 [facility] [address] [id number] [address] [place] [address], [place] [address] Jan, [facility] [address] [id number] [address] [place] [address], [place] [id number] Dec, [facility] [address] [id number] [address] [place] [address], [place] [id number] Dec, [facility] [address] [id number] [address] [place] [address], [place] [id number] Dec, [facility] [address] [id number] [address] [place] [address], [place] [id number] Dec, [facility] [address] [id number] [address] [place] [address], [place] [id number] Dec, [facility] [address] [id number] [address] [place] [address], [place] [id number] Dec, [facility] [address] [id number] [address] [place] [address], [place] [id number] Dec, [facility] [address] [id number] [address] [place] [address], [place] [id number] Dec, [facility] [address] [id number] [address] [place] [address], [place] [id number] Dec, [facility] [address] [id number] [address] [place] [address], [place] [address] Nov, [facility] [address] [id number] [address] [place] [address], [place] [id number] Nov, [facility] [address] [id number] [address] [place] [address], [place] [id number] Nov, [facility] [address] [id number] [address] [place] [address], [place] [id number] Nov, [facility] [address] [id number] [address] [place] [address], [place] [id number] Nov, [facility] [address] [id number] [address] [place] [address], [place] [id number] Nov, [facility] [address] [id number] [address] [place] [address], [place] [id number] Nov, [facility] [address] [id number] [address] [place] [address], [place] [id number] Nov, [facility] [address] [id number] [address] [place] [address], [place] [id number] Oct, [facility] [address] [id number] [address] [place] [address], [place] [id number] Oct, [facility] [address] [id number] [address] [place] [address], [place] [id number] Oct, [facility] [address] [id number] [address] [place] [address], [place] [id number] Oct, [facility] [address] [id number] [address] [place] [address], [place] [id number] Oct, [facility] [address] [id number] [address] [place] [address], [place] [id number] Oct, [facility] [address] [id number] [address] [place] [address], [place] [id number] Oct, [facility] [address] [id number] [address] [place] [address], [place] [id number] Oct, [facility] [address] [id number] [address] [place] [address], [place] [id number] Oct, [facility] [address] [id number] [address] [place] [address], [place] [id number] 18 Oct, 2012 [facility] [address] [id number] [address] [place] [address], [place] [id number] 17 Oct, 2012 [facility] [address] [id number] [address] [place] [address], [place] [id number] 14 Oct, 2012 [facility] [address] [id number] [address] [place] [address], [place] [id number] 07 Oct, 2012 [facility] [address] [id number] [address] [place] [address], [place] [id number] 30 Sep, 2012 [facility] [address] [id number] [address] [place] [address], [place] [id number] September, [facility] [address] [id number] [address] [place] [address], [place] [id number] September, [facility] [address] [id number] [address] [place] [address], [place] [id number] Aug, [facility] [address] [id number] [address] [place] [address], [place] [id number] 24 Aug, 2012 [facility] [address] [id number] [address] [place] [address], [place] [id number] 18 Aug, 2012 [facility] [address] [id number] [address] [place] [address], [place] [id number] 18 Aug, 2012 [facility] [address] [id number] [address] [place] [address], [place] [id number] 18 Aug, 2012 [facility] [address] [id number] [address] [place] [address], [place] [id number] 08 Aug, 2012 [facility] [address] [id number] [address] [place] [address], [place] [id number] 05 Aug, 2012 [facility] [address] [id number] [address] [place] [address], [place] [id number] 22 Jul, 2012 [facility] [address] [id number] [address] [place] [address], [place] [id number] Jul, [facility] [address] [id number] [address] [place] [address], [place] [id number] Jul, [facility] [address] [id number] [address] [place] [address], [place] [id number] Jul, [facility] [address] [id number] [address] [place] [address], [place] [id number] Jul, [facility] [address] [id number] [address] [place] [address], [place] [id number] Jul, [facility] [address] [id number] [address] [place] [address], [place] [id number] Jul, [facility] [address] [id number] [address] [place] [address], [place] [id number] Jul, [facility] [address] [id number] [address] [place] [address], [place] [id number] Jul, [facility] [facility] [address] [id number] [address] [place] [address], [place] [id number] 19 Jul, 2012 [facility] [address] [id number] [address] [place] [address], [place] [id number] 11 Jul, 2012 [facility] [address] [id number] [address] [place] [address], [place] [id number] Jul, [facility] [address] [id number] [address] [place] [address], [place] [id number] Jul, [facility] [address] [id number] [address] [place] [address], [place] [id number] Jun, [facility] [address] [id number] [address] [place] [address], [place] [id number] Jun, [facility] [address] [id number] [address] [place] [address], [place] [id number] Jun, [facility] [address] [id number] [address] [place] [address], [place] [id number] 17 Jun, 2012 [facility] [address] [id number] [address] [place] [address], [place] [id number] 15 Jun, 2012 [facility] [address] [id number] [address] [place] [address], [place] [id number] Jun, [facility] [address] [id number] [address] [place] [address], [place] [id number] Jun, [facility] [address] [id number] [address] [place] [address], [place] [address] May, [facility] [address] [id number] [address] [place] [address], [place] [id number] May, [facility] [address] [id number] [address] [place] [address], [place] [id number] May, [facility] [address] [id number] [address] [place] [address], [place] [address] May, [facility] [address] [id number] [address] [place] [address], [place] [id number] May, [facility] [address] [id number] [address] [place] [address], [place] [id number] 24 May, 2012 [facility] [address] [id number] [address] [place] [address], [place] [id number] May, [facility] [address] [id number] [address] [place] [address], [place] [id number] May, [facility] [address] [id number] [address] [place] [address], [place] [id number] May, [facility] [address] [id number] [address] [place] [address], [place] [id number] May, [facility] [address] [id number] [address] [place] [address], [place] [id number] Apr, [facility] [address] [id number] [address] [place] [address], [place] [id number] Apr, [facility] [address] [id number] [address] [place] [address], [place] [id number] Apr, [facility] [address] [id number] [address] [place] [address], [place] [address] Apr, [facility] [address] [id number] [address] [place] [address], [place] [id number] Apr, [facility] [address] [id number] [address] [place] [address], [place] [phone] Apr, [facility] [address] [id number] [address] [place] [address], [place] [id number] Apr, [facility] [address] [id number] [address] [place] [address], [place] [id number] Apr, [facility] [address] [id number] [address] [place] [address], [place] [id number] Apr, [facility] [address] [id number] [address] [place] [address], [place] [id number] Apr, [facility] [address] [id number] [address] [place] [address], [place] [id number] Apr, [facility] [address] [id number] [address] [place] [address], [place] [id number] Apr, [facility] [address] [id number] [address] [place] [address], [place] [id number] Mar, [facility] [address] [id number] [address] [place] [address], [place] [id number] 31 Mar, 2011 [facility] [address] [id number] [address] [place] [id number] 30 Mar, 2011 [facility] [address] [id number] [address] [place] [address], [place] [id number] 30 Mar, 2011 [facility] [address] [id number] [address] [place] [address], [place] [id number] Mar, 2011 [facility] [address] [id number] [address] [place] [address], [place] [id number] Mar, 2011 [facility] [address] [id number] [address] [place] [address], [place] [id number] Mar, 2011 [facility] [address] [id number] [address] [place] [phone] Mar, 2011 [facility] [address] [id number] [address] [place] [phone] Mar, 2011 [facility] [address] [id number] [address] [place] [phone] Mar, 2011 [facility] [address] [id number] [address] [place] [phone] Mar, 2011 [facility] [address] [id number] [address] [place] [phone] Mar, 2011 [facility] [address] [id number] [address] [place] [phone] Mar, 2011 [facility] [address] [id number] [address] [place] [phone] Mar, [facility] [address] [id number] [address] [place] [id number] Mar, [facility] [address] [id number] [address] [place] [id number] Mar, [facility] [address] [id number] [address] [place] [id number] 25 Sep, 2011 [facility] [address] [id number] [address] [place] [address], [place] [id number] 24 Sep, 2011 [facility] [address] [id number] [address] [place] [address], [place] [id number] 22 Jan, 2011 [facility] [address] [id number] [address] [place] [address], [place] [id number] 22 Jan, 2011 [facility] [address] [id number] [address] [place] [address], [place] [id number] 21 Jan, 2011 [facility] [address] [id number] [address] [place] [address], [place] [id number] 18 Jan, 2011 [facility] [address] [id number] [address] [place] [address], [place] [id number] 14 Jan, 2012 [facility] [address] [id number] [address] [place] [address], [place] [id number] 07 Jan, 2012 [facility] [address] [id number] [address] [place] [address], [place] [id number] 15 Dec, 2011 [facility] [address] [id number] [address] [place] [address], [place] [id number] 10 Dec, 2011 [facility] [address] [id number] [address] [place] [address], [place] [id number] Dec, [facility] [address] [id number] [address] [place] [address], [place] [id number] Dec, [facility] [address] [id number] [address] [place] [address], [place] [id number] Dec, [facility] [address] [id number] [address] [place] [address], [place] [id number] Dec, [facility] [address] [id number] [address] [place] [address], [place] [address] Dec, [facility] [address] [id number] [address] [place] [address], [place] [id number] Nov, [facility] [address] [id number] [address] [place] [address], [place] [id number] 06 Oct, 2011 [facility] [address] [id number] [address] [place] [address], [place] [id number] 05 Aug, 2011 [facility] [address] [id number] [address] [place] [address], [place] [address] 22 Jul, 2011 [facility] [address] [id number] [address] [place] [address], [place] [id number] 19 Jul, 2011 [facility] [address] [id number] [address] [place] [address], [place] [id number] 16 Jul, 2011 [facility] [address] [id number] [address] [place] [address], [place] [address] 14 Jul, 2011 [facility] [address] [id number] [address] [place] [address], [place] [id number] 07 Jul, 2011 [facility] [address] [id number] [address] [place] [address], [place] [id number] 02 Jul, 2011 [facility] [address] [id number] [address] [place] [address], [place] [id number] Jul, [facility] [address] [id number] [address] [place] [address], [place] [id number] 15 Jul, 2011 [facility] [address] [id number] [address] [place] [address], [place] [id number] 13 Jul, 2011 [facility] [address] [id number] [address] [place] [address], [place] [id number] 03 Jul, 2011 [facility] [address] [id number] [address] [place] [address], [place] [id number] 02 Jul, 2011 [facility] [address] [id number] [address] [place] [address], [place] [id number] Jun, [facility] [address] [id number] [address] [place] [address], [place] [id number] Jun, [facility] [address] [id number] [address] [place] [address], [place] [id number] 13 Jun, 2011 [facility] [address] [id number] [address] [place] [address], [place] [id number] Jun, [facility] [address] [id number] [address] [place] [address], [place] [id number] Jun, [facility] [address] [id number] [address] [place] [address], [place] [id number] Jun, [facility] [address] [id number] [address] [place] [address], [place] [address] Jun, [facility] [address] [id number] [address] [place] [address], [place] [id number] May, [facility] [address] [id number] [address] [place] [address], [place] [address] May, [facility] [address] [id number] [address] [place] [address], [place] [id number] May, [facility] [address] [id number] [address] [place] [address], [place] [phone] May, [facility] [address] [id number] [address] [place] [address], [place] [id number] May, [facility] [address] [id number] [address] [place] [address], [place] [id number] May, [facility] [address] [id number] [address] [place] [address], [place] [address] May, [facility] [address] [id number] [address] [place] [address], [place] [address] May, [facility] [address] [id number] [address] [place] [address], [place] [id number] May, [facility] [address] [id number] [address] [place] [address], [place] [id number] May, [facility] [address] [id number] [address] [place] [address], [place] [id number] 15 Apr, 2011 [facility] [address] [id number] [address] [place] [id number] Apr, [facility] [address] [id number] [address] [place] [id number] Apr, [facility] [address] [id number] [address] [place] [phone] Apr, [facility] [address] [facility] [id number] [address] [place] [phone] Mar, [facility] [address] [facility] [id number] [address] [place] [id number] Mar, [facility] [address] [facility] [id number] [address] [place] [phone] Mar, [facility] [address] [facility] [id number] [address] [place] [phone] Mar, IMMUNIZATIONS No Known Immunizations SOCIAL HISTORY Never Assessed REASON FOR VISIT PLAN OF CARE VITAL SIGNS MEDICATIONS Unknown Medications RESULTS No Results PROCEDURES Procedure Date Ordered Result Body Site PSYTX PT&/FAMILY 45 MINUTES November 05, 2012 INSTRUCTIONS MEDICATIONS ADMINISTERED No Known Medications [...] History Colonoscopy Hospitalization History surgeries Hospitalization History [facility] for seizures 03/24/16 Hospitalization History [facility] for kidney stones/hypertension 0 12/2017
--- OUTSIDE RECORDS SUMMARY | 2020-01-03 17:48 | XMS REPORT ---
Author Author Pattie YUNG Organization [facility] Address [address] [place] [address] Care Team Providers Care Tier Over Name Role Phone RAFAEL YUNGELA Unavailable PROBLEMS Type Condition ICD9-CM Code NZI41-CR Code Onset Dates Condition S tatus SNOMED Code Problem FRANCIS (generalized anxiety disorder) F41.1 Active 72256862 Problem Thoracic disc herniation M51.24 Activ e 551349694 Problem Major depressive disorder in partial remission F32 .4 Active 74551485 Problem Seizure disorder G40.909 Active 128 558721 Problem Conversion disorder (or hysterical neurosis, conversion ty pe) F44.9 Active 84669348 Problem Constipation, unspecified constipation type K59.00 Active 76026331 Problem Mild episode of recurrent major depressive disorder F33.0 Active 410390607 Problem Restless leg syndrome G25.81 Active 06002640 Problem Nonadherence to medication Z91.14 Act vivian 396364954 Problem Slow transit constipation K59.01 Acti ve 16278995 Problem Atrophic vaginitis N95.2 Active 5 5009733 Problem Paroxysmal tachycardia I47.9 Active 16800157 Problem Other chronic pain G89.29 Active 8 6989255 Problem Mild intermittent asthma without complication J45. 20 Active 213044872 Problem Obesity (BMI 30.0-34.9) E66.9 Active [id number] Problem High blood pressure I10 Active 91981097 ALLERGIES No Information ENCOUNTERS Encounter Location Date Diagnosis [facility] [address] [facility] [id number] [address] [place] [phone] Nov, [facility] [address] [facility] [id number] [address] [place] [phone] Nov, [address] [id number] [place] [address] [id number] Oct, Breast cancer screening Z12.[address] 340B [id number] [place] [address] 08 Oct, 2019 Breast cancer screening Z12. 39 [facility] [address] [facility] [id number] [address] [place] [phone] Oct, [facility] [address] [facility] [id number] [address] [place] [phone] Oct, [facility] [address] [facility] [id number] [address] [place] [address] September, [facility] [address] [id number] [address] [place] [phone] September, [facility] [address] [facility] [id number] [address] [place] [address] September, Well woman exam with routine gynecological exam Z01.419 and Atrophic vaginitis N95.2 [facility] [address] [facility] [id number] [address] [place] [address] September, Major depressive disorder in partial remission F32.4 ; FRANCIS (generalized anxiety disorder) F41.1 ; Restless leg syndrome G25.81 and Nonadherence to medication Z91.14 [facility] [address] [facility] [id number] [address] [place] [phone] September, [facility] [address] [facility] [id number] [address] [place] [phone] Aug, [facility] [address] [id number] [address] [place] [address] [id number] Aug, Dental examination Z01.20 [facility] [address] [id number] [address] [place] [address] [id number] Aug, Dental examination Z01.20 an d Caries K02.9 [facility] [address] [id number] [address] [place] [phone] Aug, [facility] [address] [facility] [id number] [address] [place] [phone] Aug, [facility] [address] [id number] [address] [place] [phone] 11 Aug, 2019 Other chronic pain G89.29 an d Back muscle spasm M62.830 [facility] [address] [id number] [address] [place] [phone] 07 Aug, 2019 [facility] [address] [id number] [address] [place] [phone] Aug, Major depressive disorder in partial remission F32.4 ; FRANCIS (generalized anxiety disorder) F41.1 ; Restless leg syndrome G25.81 and Nonadherence to medication Z91.14 [facility] [address] [id number] [address] [place] [address] Aug, [facility] [address] [id number] [address] [place] [phone] Jul, [facility] [address] [id number] [address] [place] [phone] Jul, [facility] [address] [id number] [address] [place] [address] Jul, Major depressive disorder in partial remission F32.4 ; FRANCIS (generalized anxiety disorder) F41.1 ; Restless leg syndrome G25.81 and High blood pressure I10 [facility] [address] [id number] [address] [place] [id number] 17 Jul, 2019 [facility] [address] [id number] [address] [place] [phone] Jul, [facility] [address] [id number] [address] [place] [id number] Jun, [facility] [address] [id number] [address] [place] [phone] May, [facility] [address] [id number] [address] [place] [phone] Apr, [facility] [address] [id number] [address] [place] [phone] Apr, [facility] [address] [id number] [address] [place] [phone] Mar, [facility] [address] [facility] [id number] [address] [place] [phone] Mar, Major depressive disorder in partial remission F32.4 ; FRANCIS (generalized anxiety disorder) F41.1 and Restless leg syndrome G25.81 [facility] [address] [id number] [address] [place] [phone] Mar, Obesity (BMI 30.0-34.9) E66. 9 [facility] [address] [id number] [address] [place] [phone] Jan, [facility] [address] [facility] [id number] [address] [place] [phone] Jan, Burn T30.0 [facility] [address] [facility] [id number] [address] [place] [phone] Dec, [facility] [address] [id number] [address] [place] [phone] Nov, [facility] [address] [id number] [address] [place] [phone] Nov, [facility] [address] [id number] [address] [place] [address] [id number] Nov, Dental examination Z01.20 [facility] [address] [id number] [address] [place] [phone] September, [facility] [address] [id number] [address] [place] [address] [id number] September, Decay, teeth K02.9 and Denta l examination Z01.20 [facility] [address] [id number] [address] [place] [address] [id number] September, Dental examination Z01.20 [facility] [address] [id number] [address] [place] [phone] September, FRANCIS (generalized anxiety dis order) F41.1 ; Major depressive disorder in partial remission F32.4 and Restless leg syndrome G25.81 [facility] [address] [facility] [id number] [address] [place] [phone] Aug, [facility] [address] [facility] [id number] [address] [place] [phone] Jul, [facility] [address] [facility] [id number] [address] [place] [phone] Jul, Encounter to discuss test re sults Z71.2 [facility] [address] [facility] [id number] [address] [place] [phone] Jul, Pelvic pain R10.2 ; Screenin g for breast cancer Z12.31 and Obesity (BMI 30.0-34.9) E66.9 [facility] [address] [facility] [id number] [address] [place] [id number] Jul, Mild intermittent asthma wit hout complication J45.20 [facility] [address] [facility] [id number] [address] [place] [phone] Jul, Major depressive disorder in partial remission F32.4 and FRANCIS (generalized anxiety disorder) F41.1 [facility] [address] [facility] [id number] [address] [place] [phone] Jul, [facility] [address] [facility] [id number] [address] [place] [phone] Jun, [facility] [address] [facility] [id number] [address] [place] [phone] May, Major depressive disorder in partial remission F32.4 ; FRANCIS (generalized anxiety disorder) F41.1 and Restless leg syndrome G25.81 [facility] [address] [facility] [id number] [address] [place] [phone] Apr, [facility] [address] [facility] [id number] [address] [place] [address] Mar, [facility] [address] [id number] [address] [place] [id number] 21 Jan, 2018 Pain in thoracic spine M54.6 and Other chronic pain G89.29 [facility] [address] [id number] [address] [place] [id number] 14 Jan, 2018 [facility] [address] [id number] [address] [place] [id number] 11 Jan, 2018 Mild episode of recurrent ma saray depressive disorder F33.0 ; FRANCIS (generalized anxiety disorder) F41.1 and Restless leg syndrome G25.81 [facility] [address] [id number] [address] [place] [phone] Dec, [facility] [address] [id number] [address] [place] [phone] Dec, Hospital discharge follow-up Z09 [facility] [address] [id number] [address] [place] [phone] Nov, [facility] [address] [id number] [address] [place] [phone] Nov, [facility] [address] [id number] [address] [place] [id number] September, [facility] [address] [id number] [address] [place] [phone] September, [facility] [address] [id number] [address] [place] [phone] September, Major depressive disorder in partial remission F32.4 ; FRANCIS (generalized anxiety disorder) F41.1 and Restless leg syndrome G25.81 [facility] [address] [id number] [address] [place] [phone] September, [facility] [address] [id number] [address] [place] [address] Jul, [facility] [address] [id number] [address] [place] [id number] Jul, Dorsalgia, unspecified M54.9 [facility] [address] [id number] [address] [place] [address] Jul, Mild episode of recurrent ma saray depressive disorder F33.0 and FRANCIS (generalized anxiety disorder) F41.1 [facility] [address] [id number] [address] [place] [phone] May, [facility] [address] [id number] [address] [place] [address] May, Dysuria R30.0 and Acute cyst itis with hematuria N30.01 [facility] [address] [id number] [address] [place] [address] Apr, [place] [address] [facility] [id number] [address] [place] [address] Apr, Major depressive disorder in partial remission F32.4 and FRANCIS (generalized anxiety disorder) F41.1 [place] [address] [id number] [address] [place] [phone] Mar, Paroxysmal tachycardia I47.9 [place] [address] [id number] [address] [place] [address] Mar, Paroxysmal tachycardia I47.9 and Pain of left lower extremity M79.605 [place] [address] [id number] [address] [place] [phone] Mar, FRANCIS (generalized anxiety dis order) F41.1 and Major depressive disorder in partial remission F32.4 [facility] [address] [id number] [address] [place] [address] Jan, [facility] [address] [id number] [address] [place] [address] Jan, [place] [address] [facility] [id number] [address] [place] [phone] Jan, [facility] [address] [id number] [address] [place] [address] Dec, Constipation, unspecified co nstipation type K59.00 [facility] [address] [id number] [address] [place] [address] Dec, [facility] [address] [id number] [address] [place] [address] Nov, [facility] [address] [facility] [id number] [address] [place] [phone] Nov, Major depressive disorder in partial remission F32.4 and FRANCIS (generalized anxiety disorder) F41.1 [facility] [address] [id number] [address] [place] [address] Oct, Abdominal pain R10.9 and Slo w transit constipation K59.01 [facility] [address] [id number] [address] [place] [phone] Aug, Major depressive disorder in partial remission F32.4 ; FRANCIS (generalized anxiety disorder) F41.1 ; Conversion disorder (or hysterical neurosis, conversion type) F44.9 ; Dorsalgia, unspecified M54.9 and Long-term use of high-risk medication Z79.899 [place] [id number] [facility] [id number] [address] [place] [address] Aug, [facility] [address] [facility] [id number] [address] [place] [address] Jul, Paroxysmal tachycardia I47.9 [place] [address] [facility] [id number] [address] [place] [address] Jul, Paroxysmal tachycardia I47.9 [facility] [address] [id number] [address] [place] [address] Jun, [place] [address] [facility] [id number] [address] [place] [address] Jun, Major depressive disorder in partial remission F32.4 ; FRANCIS (generalized anxiety disorder) F41.1 and Conversion disorder (or hysterical neurosis, conversion type) F44.9 [facility] [address] [facility] [id number] [address] [place] [phone] May, Pelvic pain R10.2 [facility] [address] [id number] [address] [place] [address] Apr, Gastroenteritis K52.9 [facility] [address] [id number] [address] [place] [address] Apr, Blood in urine R31.9 and Acu te cystitis with hematuria N30.01 [facility] [address] [id number] [address] [place] [address] Apr, Major depressive disorder in partial remission F32.4 ; FRANCIS (generalized anxiety disorder) F41.1 and Conversion disorder (or hysterical neurosis, conversion type) F44.9 [facility] [address] [facility] [id number] [address] [place] [address] Apr, [place] [address] [facility] [id number] [place] [address] Apr, Abnormal mammogram R92.8 [place] [address] [id number] [address] [place] [phone] Mar, [place] [address] [facility] [id number] [address] [place] [address] Mar, Gastroenteritis K52.9 and Se izure disorder G40.909 [place] [address] [facility] [id number] [address] [place] [phone] Dec, [facility] [address] [id number] [address] [place] [address] Dec, Other headache syndrome G44. 89 [place] [address] [facility] [id number] [address] [place] [phone] Dec, [place] [address] [facility] [id number] [address] [place] [address] Dec, Thoracic disc herniation M51 .24 [place] [address] [facility] [id number] [address] [place] [address] Dec, [facility] [address] [id number] [address] [place] [phone] Nov, Major depressive disorder in partial remission F32.4 and FRANCIS (generalized anxiety disorder) F41.1 [facility] [address] [id number] [address] [place] [address], [place] [address] Nov, [facility] [address] [id number] [address] [place] [address] Nov, Dorsalgia, unspecified M54.9 [facility] [address] [id number] [address] [place] [address] Oct, [facility] [address] [id number] [address] [place] [address] September, [facility] [address] [id number] [address] [place] [address] Aug, [facility] [address] [id number] [address] [place] [phone] Aug, Major depressive disorder in partial remission F32.4 and FRANCIS (generalized anxiety disorder) F41.1 [facility] [address] [id number] [address] [place] [address] Aug, [facility] [address] [id number] [address] [place] [address] Jul, Abnormal mammogram R92.8 [facility] [address] [id number] [address] [place] [phone] Jul, [facility] [address] [id number] [address] [place] [address] Jul, [facility] [address] [id number] [address] [place] [phone] 14 Jul, 2015 [facility] [address] [id number] [address] [place] [address] Jul, [facility] [address] [id number] [address] [place] [phone] Jul, [facility] [address] [id number] [address] [place] [address] Jul, [facility] [address] [id number] [address] [place] [phone] Jun, Major depressive disorder in partial remission F32.4 and FRANCIS (generalized anxiety disorder) F41.1 [facility] [address] [id number] [address] [place] [phone] Jun, [facility] [address] [id number] [address] [place] [phone] May, [facility] [address] [id number] [address] [place] [phone] Apr, [facility] [address] [facility] [id number] [address] [place] [phone] Mar, Major depressive disorder, r ecurrent episode, moderate F33.1 ; PTSD (post-traumatic stress disorder) F43.10 and FRANCIS (generalized anxiety disorder) F41.1 [facility] [address] [id number] [address] [place] [id number] Mar, [facility] [address] [id number] [address] [place] [address] Mar, [facility] [address] [id number] [address] [place] [id number] Mar, [facility] [address] [id number] [address] [place] [phone] Mar, [facility] [address] [id number] [address] [place] [phone] Jan, [facility] [address] [id number] [address] [place] [phone] Jan, [facility] [address] [id number] [address] [place] [id number] Jan, [facility] [address] [id number] [address] [place] [id number] Jan, Thoracic disc herniation 722 .11 [facility] [address] [id number] [address] [place] [phone] Dec, [facility] [address] [id number] [address] [place] [id number] Dec, [facility] [address] [id number] [address] [place] [phone] Dec, [facility] [address] [id number] [address] [place] [phone] Nov, [facility] [address] [id number] [address] [place] [id number] Nov, Generalized anxiety disorder 300.02 ; Posttraumatic stress disorder 309.81 and Major depressive disorder, recurrent episode, moderate 296.32 [facility] [address] [id number] [address] [place] [id number] Nov, [facility] [address] [id number] [address] [place] [phone] Nov, [facility] [address] [id number] [address] [place] [id number] Oct, [facility] [address] [id number] [address] [place] [id number] Oct, [facility] [address] [id number] [address] [place] [phone] Oct, [facility] [address] [id number] [address] [place] [phone] September, [facility] [address] [id number] [address] [place] [phone] September, [facility] [address] [id number] [address] [place] [phone] Aug, [facility] [address] [id number] [address] [place] [phone] Aug, [facility] [address] [id number] [address] [place] [address], [place] [id number] Jul, [facility] [address] [id number] [address] [place] [address], [place] [address] Jul, [facility] [address] [id number] [address] [place] [address], [place] [id number] 17 Jul, 2014 [facility] [address] [id number] [address] [place] [address], [place] [address] 17 Jul, 2014 [facility] [address] [id number] [address] [place] [address], [place] [address] 16 Jul, 2014 [facility] [address] [id number] [address] [place] [address], [place] [address] Jul, [facility] [address] [id number] [address] [place] [address], [place] [address] Jul, [facility] [address] [id number] [address] [place] [address], [place] [address] Jul, [facility] [address] [id number] [address] [place] [address], [place] [address] Jul, [facility] [address] [id number] [address] [place] [address], [place] [address] Jul, [facility] [address] [id number] [address] [place] [address], [place] [address] Jun, [facility] [address] [id number] [address] [place] [address], [place] [address] Jun, [facility] [address] [id number] [address] [place] [address], [place] [address] Jun, [facility] [address] [id number] [address] [place] [address], [place] [address] May, [facility] [address] [id number] [address] [place] [address], [place] [address] Apr, [facility] [address] [id number] [address] [place] [address], [place] [address] Apr, [facility] [address] [id number] [address] [place] [address], [place] [address] Apr, [facility] [address] [id number] [address] [place] [address], [place] [address] Apr, [facility] [address] [id number] [address] [place] [address], [place] [address] Apr, [facility] [address] [id number] [address] [place] [address], [place] [address] Apr, [facility] [address] [id number] [address] [place] [address], [place] [address] Apr, [facility] [address] [id number] [address] [place] [address], [place] [address] Apr, [facility] [address] [id number] [address] [place] [address], [place] [address] Mar, [facility] [address] [id number] [address] [place] [address], [place] [address] Mar, [facility] [address] [id number] [address] [place] [address], [place] [address] Mar, [facility] [address] [id number] [address] [place] [address], [place] [address] Mar, [facility] [address] [id number] [address] [place] [address], [place] [address] Mar, [facility] [address] [id number] [address] [place] [address] Mar, [facility] [address] [id number] [address] [place] [address], [place] [address] Mar, [facility] [address] [id number] [address] [place] [address], [place] [address] Mar, [facility] [address] [id number] [address] [place] [address], [place] [address] Mar, [facility] [address] [id number] [address] [place] [address], [place] [address] Mar, 2013 [facility] [address] [id number] [address] [place] [address], [place] [address] 17 Mar, 2013 [facility] [address] [id number] [address] [place] [address], [place] [address] 14 Mar, 2013 [facility] [address] [id number] [address] [place] [address], [place] [address] 14 Mar, 2013 [facility] [address] [id number] [address] [place] [address], [place] [address] 07 Mar, 2013 [facility] [address] [id number] [address] [place] [address], [place] [address] 07 Mar, 2013 [facility] [address] [id number] [address] [place] [address], [place] [address] 06 Mar, 2013 [facility] [address] [id number] [address] [place] [address], [place] [address] Mar, 2013 [facility] [address] [id number] [address] [place] [address], [place] [address] 19 Sep, 2013 [facility] [address] [id number] [address] [place] [address], [place] [address] 19 Sep, 2013 [facility] [address] [id number] [address] [place] [address], [place] [address] 09 Sep, 2013 [facility] [address] [id number] [address] [place] [address], [place] [address] 09 Sep, 2013 [facility] [address] [id number] [address] [place] [address], [place] [address] 05 Sep, 2013 [facility] [address] [id number] [address] [place] [address], [place] [address] 05 Sep, 2013 [facility] [address] [id number] [address] [place] [address], [place] [address] 05 Sep, 2013 [facility] [address] [id number] [address] [place] [address], [place] [address] 05 Sep, 2013 [facility] [address] [id number] [address] [place] [address], [place] [address] Jan, 2013 [facility] [address] [id number] [address] [place] [address], [place] [address] Jan, [facility] [address] [id number] [address] [place] [address], [place] [address] Jan, 2013 [facility] [address] [id number] [address] [place] [address], [place] [address] Jan, 2013 [facility] [address] [id number] [address] [place] [address], [place] [address] Jan, [facility] [address] [id number] [address] [place] [address], [place] [address] Dec, [facility] [address] [id number] [address] [place] [address], [place] [address] Dec, [facility] [address] [id number] [address] [place] [address], [place] [address] Dec, [facility] [address] [id number] [address] [place] [address], [place] [address] Dec, [facility] [address] [id number] [address] [place] [address], [place] [address] Dec, [facility] [address] [id number] [address] [place] [address], [place] [address] Dec, [facility] [address] [place] [id number] Dec, [facility] [address] [place] [id number] Dec, [facility] [address] [id number] [address] [place] [address], [place] [address] Dec, [facility] [address] [id number] [address] [place] [address], [place] [address] Dec, [facility] [address] [id number] [address] [place] [address], [place] [address] Dec, [facility] [address] [id number] [address] [place] [address], [place] [address] Dec, [facility] [address] [id number] [address] [place] [address], [place] [address] Nov, [facility] [address] [id number] [address] [place] [address], [place] [address] Nov, [facility] [address] [id number] [address] [place] [address], [place] [address] Nov, [facility] [address] [id number] [address] [place] [address], [place] [address] Nov, [facility] [address] [id number] [address] [place] [address], [place] [address] Nov, [facility] [address] [id number] [address] [place] [address], [place] [address] Nov, [facility] [address] [id number] [address] [place] [address], [place] [address] Nov, [facility] [address] [id number] [address] [place] [address], [place] [address] Nov, [facility] [address] [id number] [address] [place] [address], [place] [address] Nov, [facility] [address] [id number] [address] [place] [address], [place] [address] Nov, [facility] [address] [id number] [address] [place] [address], [place] [address] Nov, [facility] [address] [id number] [address] [place] [address], [place] [address] Nov, [facility] [address] [id number] [address] [place] [address], [place] [address] Nov, [facility] [address] [id number] [address] [place] [address], [place] [address] Oct, [facility] [address] [id number] [address] [place] [address], [place] [address] Oct, [facility] [address] [id number] [facility] [place] [address] Oct, [facility] [address] [id number] [address] [place] [address], [place] [address] Oct, [facility] [address] [id number] [address] [place] [address], [place] [address] Oct, [facility] [address] [id number] [address] [place] [address], [place] [address] Oct, [facility] [address] [id number] [address] [place] [address], [place] [address] Oct, [facility] [address] [id number] [address] [place] [address], [place] [address] Oct, [facility] [address] [id number] [address] [place] [address], [place] [address] Oct, [facility] [address] [id number] [address] [place] [address], [place] [address] Oct, [facility] [address] [id number] [address] [place] [address], [place] [address] Oct, [facility] [address] [id number] [address] [place] [address], [place] [address] Oct, [facility] [address] [id number] [address] [place] [address], [place] [address] September, [facility] [address] [id number] [address] [place] [address], [place] [address] September, [facility] [address] [id number] [address] [place] [address], [place] [address] September, [facility] [address] [id number] [address] [place] [address], [place] [address] September, [facility] [address] [id number] [address] [place] [address], [place] [address] Aug, [facility] [address] [id number] [facility] [place] [address] Aug, [facility] [address] [id number] [facility] [place] [address] Aug, [facility] [address] [id number] [facility] [place] [address] Aug, [facility] [address] [id number] [address] [place] [address], [place] [address] Aug, [facility] [address] [id number] [address] [place] [address], [place] [address] Aug, [facility] [address] [id number] [address] [place] [address], [place] [address] Aug, [facility] [address] [id number] [address] [place] [address], [place] [address] Jul, [facility] [address] [id number] [address] [place] [address], [place] [address] Jul, [facility] [address] [id number] [address] [place] [address], [place] [address] Jul, [facility] [address] [id number] [address] [place] [address], [place] [address] Jul, [facility] [address] [id number] [address] [place] [address], [place] [address] Jul, [facility] [address] [id number] [address] [place] [address], [place] [address] Jul, [facility] [address] [id number] [address] [place] [address], [place] [address] Jul, [facility] [address] [id number] [address] [place] [address], [place] [address] 18 Jul, 2013 [facility] [address] [id number] [address] [place] [address], [place] [address] Jul, [facility] [address] [id number] [address] [place] [address], [place] [address] Jul, [facility] [address] [id number] [facility] [place] [address] 18 Jul, 2013 [facility] [address] [id number] [address] [place] [address], [place] [address] 18 Jul, 2013 [facility] [address] [id number] [address] [place] [address], [place] [address] 14 Jul, 2013 [facility] [address] [id number] [address] [place] [address], [place] [address] 14 Jul, 2013 [facility] [address] [id number] [address] [place] [address], [place] [address] Jul, [facility] [address] [id number] [address] [place] [address], [place] [address] Jul, [facility] [address] [id number] [address] [place] [address], [place] [address] Jul, [facility] [address] [id number] [address] [place] [address], [place] [address] Jul, [facility] [address] [id number] [address] [place] [address], [place] [address] Jun, [facility] [address] [id number] [address] [place] [address], [place] [address] Jun, [facility] [address] [id number] [address] [place] [address], [place] [address] Jun, [facility] [address] [id number] [address] [place] [address], [place] [address] 15 Jun, 2013 [facility] [address] [id number] [address] [place] [address], [place] [address] Jun, [facility] [address] [id number] [address] [place] [address], [place] [address] 14 Jun, 2013 [facility] [address] [id number] [address] [place] [address], [place] [address] 14 Jun, 2013 [facility] [address] [id number] [address] [place] [address], [place] [address] 14 Jun, 2013 [facility] [address] [id number] [address] [place] [address], [place] [address] 14 Jun, 2013 [facility] [address] [id number] [address] [place] [address], [place] [address] 14 Jun, 2013 [facility] [address] [id number] [address] [place] [address], [place] [address] 27 May, 2013 [facility] [address] [id number] [address] [place] [address], [place] [address] 27 May, 2013 [facility] [address] [id number] [address] [place] [address], [place] [address] 26 May, 2013 [facility] [address] [id number] [address] [place] [address], [place] [address] 19 May, 2013 [facility] [address] [id number] [address] [place] [address], [place] [address] 19 May, 2013 [facility] [address] [id number] [address] [place] [address], [place] [address] 16 May, 2013 [facility] [address] [id number] [address] [place] [address], [place] [address] 16 May, 2013 [facility] [address] [id number] [address] [place] [address], [place] [address] 16 May, 2013 [facility] [address] [id number] [address] [place] [address], [place] [address] 16 May, 2013 [facility] [address] [id number] [address] [place] [address], [place] [address] 13 May, 2013 [facility] [address] [id number] [address] [place] [address], [place] [address] 13 May, 2013 [facility] [address] [id number] [address] [place] [address], [place] [address] 11 May, 2013 [facility] [address] [id number] [address] [place] [address], [place] [address] Apr, [facility] [address] [id number] [address] [place] [address], [place] [address] 18 Apr, 2013 [facility] [address] [id number] [address] [place] [address], [place] [address] 18 Apr, 2013 [facility] [address] [id number] [address] [place] [address], [place] [address] Apr, [facility] [address] [id number] [address] [place] [address], [place] [address] Apr, [facility] [address] [id number] [address] [place] [address], [place] [address] Apr, [facility] [address] [id number] [address] [place] [address], [place] [address] 08 Apr, 2013 [facility] [address] [id number] [address] [place] [address], [place] [address] Apr, [facility] [address] [id number] [address] [place] [address] Apr, [facility] [address] [id number] [address] [place] [address], [place] [address] Apr, [facility] [address] [id number] [address] [place] [address] Apr, [facility] [address] [id number] [address] [place] [address] Mar, [facility] [address] [id number] [address] [place] [address] Mar, [facility] [address] [id number] [address] [place] [address], [place] [address] Mar, [facility] [address] [id number] [address] [place] [address] Mar, [facility] [address] [id number] [address] [place] [address], [place] [address] Mar, [facility] [address] [id number] [address] [place] [address], [place] [address] Mar, [facility] [address] [id number] [address] [place] [address], [place] [address] Mar, [facility] [address] [id number] [address] [place] [address], [place] [address] Mar, [facility] [address] [id number] [address] [place] [address], [place] [address] Mar, [facility] [address] [id number] [address] [place] [address], [place] [address] Mar, [facility] [address] [id number] [address] [place] [address], [place] [address] Mar, [facility] [address] [id number] [address] [place] [address], [place] [address] Mar, [facility] [address] [id number] [address] [place] [address], [place] [address] 30 Jan, 2013 [facility] [address] [id number] [address] [place] [address], [place] [address] Jan, [facility] [address] [id number] [address] [place] [address], [place] [address] 20 Jan, 2013 [facility] [address] [id number] [address] [place] [address], [place] [address] Jan, [facility] [address] [id number] [address] [place] [address], [place] [address] Dec, [facility] [address] [id number] [address] [place] [address], [place] [address] Dec, [facility] [address] [id number] [address] [place] [address], [place] [address] Dec, [facility] [address] [id number] [address] [place] [address], [place] [address] Dec, [facility] [address] [id number] [address] [place] [address], [place] [address] Dec, [facility] [address] [id number] [address] [place] [address], [place] [address] Dec, [facility] [address] [id number] [address] [place] [address], [place] [address] Dec, [facility] [address] [id number] [address] [place] [address], [place] [address] Dec, [facility] [address] [id number] [address] [place] [address], [place] [address] Dec, [facility] [address] [id number] [address] [place] [address], [place] [address] Nov, [facility] [address] [id number] [address] [place] [address], [place] [address] Nov, [facility] [address] [id number] [address] [place] [address], [place] [address] Nov, [facility] [address] [id number] [address] [place] [address], [place] [address] Nov, [facility] [address] [id number] [address] [place] [address], [place] [address] Nov, [facility] [address] [id number] [address] [place] [address], [place] [address] Nov, [facility] [address] [id number] [address] [place] [address], [place] [address] Nov, [facility] [address] [id number] [address] [place] [address], [place] [address] Nov, [facility] [address] [id number] [address] [place] [address], [place] [address] Oct, [facility] [address] [id number] [address] [place] [address], [place] [address] Oct, [facility] [address] [id number] [address] [place] [address], [place] [address] Oct, [facility] [address] [id number] [address] [place] [address], [place] [address] Oct, [facility] [address] [id number] [address] [place] [address], [place] [address] Oct, [facility] [address] [id number] [address] [place] [address], [place] [address] Oct, [facility] [address] [id number] [address] [place] [address], [place] [address] Oct, [facility] [address] [id number] [address] [place] [address], [place] [address] Oct, [facility] [address] [id number] [address] [place] [address], [place] [address] Oct, [facility] [address] [id number] [address] [place] [address], [place] [address] 18 Oct, 2012 [facility] [address] [id number] [address] [place] [address], [place] [address] 17 Oct, 2012 [facility] [address] [id number] [address] [place] [address], [place] [address] 14 Oct, 2012 [facility] [address] [id number] [address] [place] [address], [place] [address] 07 Oct, 2012 [facility] [address] [id number] [address] [place] [address], [place] [address] 30 Sep, 2012 [facility] [address] [id number] [address] [place] [address], [place] [address] September, [facility] [address] [id number] [address] [place] [address], [place] [address] September, [facility] [address] [id number] [address] [place] [address], [place] [address] Aug, [facility] [address] [id number] [address] [place] [address], [place] [address] 24 Aug, 2012 [facility] [address] [id number] [address] [place] [address], [place] [address] 18 Aug, 2012 [facility] [address] [id number] [address] [place] [address], [place] [address] 18 Aug, 2012 [facility] [address] [id number] [address] [place] [address], [place] [address] 18 Aug, 2012 [facility] [address] [id number] [address] [place] [address], [place] [address] 08 Aug, 2012 [facility] [address] [id number] [address] [place] [address], [place] [address] 05 Aug, 2012 [facility] [address] [id number] [address] [place] [address], [place] [address] 22 Jul, 2012 [facility] [address] [id number] [address] [place] [address], [place] [address] Jul, [facility] [address] [id number] [address] [place] [address], [place] [address] Jul, [facility] [address] [id number] [address] [place] [address], [place] [address] Jul, [facility] [address] [id number] [address] [place] [address], [place] [address] Jul, [facility] [address] [id number] [address] [place] [address], [place] [address] Jul, [facility] [address] [id number] [address] [place] [address], [place] [address] Jul, [facility] [address] [id number] [address] [place] [address], [place] [address] Jul, [facility] [address] [id number] [address] [place] [address], [place] [address] Jul, [facility] [address] [id number] [address] [place] [address], [place] [address] 19 Jul, 2012 [facility] [address] [id number] [address] [place] [address], [place] [address] 11 Jul, 2012 [facility] [address] [id number] [address] [place] [address], [place] [address] Jul, [facility] [address] [id number] [address] [place] [address], [place] [address] Jul, [facility] [address] [id number] [address] [place] [address], [place] [address] Jun, [facility] [address] [id number] [address] [place] [address], [place] [address] Jun, [facility] [address] [id number] [address] [place] [address], [place] [address] Jun, [facility] [address] [id number] [address] [place] [address], [place] [address] 17 Jun, 2012 [facility] [address] [id number] [address] [place] [address], [place] [address] 15 Jun, 2012 [facility] [address] [id number] [address] [place] [address], [place] [address] Jun, [facility] [address] [id number] [address] [place] [address], [place] [address] Jun, [facility] [address] [id number] [address] [place] [address], [place] [address] May, [facility] [address] [id number] [address] [place] [address], [place] [address] May, [facility] [address] [id number] [address] [place] [address], [place] [address] May, [facility] [address] [id number] [address] [place] [address], [place] [address] May, [facility] [address] [id number] [address] [place] [address], [place] [address] May, [facility] [address] [id number] [address] [place] [address], [place] [address] 24 May, 2012 [facility] [address] [id number] [address] [place] [address], [place] [address] May, [facility] [address] [id number] [address] [place] [address], [place] [address] May, [facility] [address] [id number] [address] [place] [address], [place] [address] May, [facility] [address] [id number] [address] [place] [address], [place] [address] May, [facility] [address] [id number] [address] [place] [address], [place] [address] Apr, [facility] [address] [id number] [address] [place] [address], [place] [address] Apr, [facility] [address] [id number] [address] [place] [address], [place] [address] Apr, [facility] [address] [id number] [address] [place] [address], [place] [address] Apr, [facility] [address] [id number] [address] [place] [address], [place] [address] Apr, [facility] [address] [id number] [address] [place] [address], [place] [address] Apr, [facility] [address] [id number] [address] [place] [address], [place] [address] Apr, [facility] [address] [id number] [address] [place] [address], [place] [address] Apr, [facility] [address] [id number] [address] [place] [address], [place] [address] Apr, [facility] [address] [id number] [address] [place] [address], [place] [address] Apr, [facility] [address] [id number] [address] [place] [address], [place] [address] Apr, [facility] [address] [id number] [address] [place] [address], [place] [address] Apr, [facility] [address] [id number] [address] [place] [address], [place] [address] Mar, [facility] [address] [id number] [address] [place] [address], [place] [address] 31 Mar, 2011 [facility] [address] [id number] [address] [place] [address] 30 Mar, 2011 [facility] [address] [id number] [address] [place] [address], [place] [address] 30 Mar, 2011 [facility] [address] [id number] [address] [place] [address], [place] [address] Mar, 2011 [facility] [address] [id number] [address] [place] [address], [place] [address] Mar, 2011 [facility] [address] [id number] [address] [place] [address], [place] [address] Mar, 2011 [facility] [address] [id number] [address] [place] [address] Mar, 2011 [facility] [address] [id number] [address] [place] [address] Mar, 2011 [facility] [address] [id number] [address] [place] [address] Mar, 2011 [facility] [address] [id number] [address] [place] [address] Mar, 2011 [facility] [address] [id number] [address] [place] [address] Mar, 2011 [facility] [address] [id number] [address] [place] [address] Mar, 2011 [facility] [address] [id number] [address] [place] [address] Mar, [facility] [address] [id number] [address] [place] [address] Mar, [facility] [address] [id number] [address] [place] [address] Mar, [facility] [address] [id number] [address] [place] [address] 25 Sep, 2011 [facility] [address] [id number] [address] [place] [address], [place] [address] 24 Sep, 2011 [facility] [address] [id number] [address] [place] [address], [place] [address] 22 Jan, 2011 [facility] [address] [id number] [address] [place] [address], [place] [address] 22 Jan, 2011 [facility] [address] [id number] [address] [place] [address], [place] [address] 21 Jan, 2011 [facility] [address] [id number] [address] [place] [address], [place] [address] 18 Jan, 2011 [facility] [address] [id number] [address] [place] [address], [place] [address] 14 Jan, 2012 [facility] [address] [id number] [address] [place] [address], [place] [address] 07 Jan, 2012 [facility] [address] [id number] [address] [place] [address], [place] [address] 15 Dec, 2011 [facility] [address] [id number] [address] [place] [address], [place] [address] 10 Dec, 2011 [facility] [address] [id number] [address] [place] [address], [place] [address] Dec, [facility] [address] [id number] [address] [place] [address], [place] [address] Dec, [facility] [address] [id number] [address] [place] [address], [place] [address] Dec, [facility] [address] [id number] [address] [place] [address], [place] [address] Dec, [facility] [address] [id number] [address] [place] [address], [place] [address] Dec, [facility] [address] [id number] [address] [place] [address], [place] [address] Nov, [facility] [address] [id number] [address] [place] [address], [place] [address] 06 Oct, 2011 [facility] [address] [id number] [address] [place] [address], [place] [address] 05 Aug, 2011 [facility] [address] [id number] [address] [place] [address], [place] [address] 22 Jul, 2011 [facility] [address] [id number] [address] [place] [address], [place] [address] 19 Jul, 2011 [facility] [address] [id number] [address] [place] [address], [place] [address] 16 Jul, 2011 [facility] [address] [id number] [address] [place] [address], [place] [address] 14 Jul, 2011 [facility] [address] [id number] [address] [place] [address], [place] [address] 07 Jul, 2011 [facility] [address] [id number] [address] [place] [address], [place] [address] 02 Jul, 2011 [facility] [address] [id number] [address] [place] [address], [place] [address] Jul, [facility] [address] [id number] [address] [place] [address], [place] [address] 15 Jul, 2011 [facility] [address] [id number] [address] [place] [address], [place] [address] 13 Jul, 2011 [facility] [address] [id number] [address] [place] [address], [place] [address] 03 Jul, 2011 [facility] [address] [id number] [address] [place] [address], [place] [address] 02 Jul, 2011 [facility] [address] [id number] [address] [place] [address], [place] [address] Jun, [facility] [address] [id number] [address] [place] [address], [place] [address] Jun, [facility] [address] [id number] [address] [place] [address], [place] [address] 13 Jun, 2011 [facility] [address] [id number] [address] [place] [address], [place] [address] Jun, [facility] [address] [id number] [address] [place] [address], [place] [address] Jun, [facility] [address] [id number] [address] [place] [address], [place] [address] Jun, [facility] [address] [id number] [address] [place] [address], [place] [address] Jun, [facility] [address] [id number] [address] [place] [address], [place] [address] May, [facility] [address] [id number] [address] [place] [address], [place] [address] May, [facility] [address] [id number] [address] [place] [address], [place] [address] May, [facility] [address] [id number] [address] [place] [address], [place] [address] May, [facility] [address] [id number] [address] [place] [address], [place] [address] May, [facility] [address] [id number] [address] [place] [address], [place] [address] May, [facility] [address] [id number] [address] [place] [address], [place] [address] May, [facility] [address] [id number] [address] [place] [address], [place] [address] May, [facility] [address] [id number] [address] [place] [address], [place] [address] May, [facility] [address] [id number] [address] [place] [address], [place] [address] May, [facility] [address] [id number] [address] [place] [address], [place] [address] 15 Apr, 2011 [facility] [address] [id number] [address] [place] [address] Apr, [facility] [address] [id number] [address] [place] [address] Apr, [facility] [address] [id number] [address] [place] [address] Apr, [facility] [address] [facility] [id number] [address] [place] [address] Mar, [facility] [address] [facility] [id number] [address] [place] [address] Mar, [facility] [address] [facility] [id number] [address] [place] [address] Mar, [facility] [address] [facility] [id number] [address] [place] [address] Mar, IMMUNIZATIONS No Known Immunizations SOCIAL HISTORY [...] [facility] 03/[facility]/16 Hospitalization History [facility] for kidney stones/hypertension 0 12/2017
--- OUTSIDE RECORDS SUMMARY | 2020-01-03 17:49 | XMS REPORT ---
Author Author Pattie VIEIRA Organization [facility] Address [address] [place] [address] Care Team Providers Care Bleach Packer Name Role Phone REYNALDO VIEIRA Unavailable PROBLEMS Type Condition ICD9-CM Code [id number] Code Onset Dates Condition S tatus SNOMED Code Problem FRANCIS (generalized anxiety disorder) F41.1 Active 26160084 Problem Thoracic disc herniation M51.24 Activ e 569929594 Problem Major depressive disorder in partial remission F32 .4 Active 68113855 Problem Seizure disorder G40.909 Active 128 888398 Problem Conversion disorder (or hysterical neurosis, conversion ty pe) F44.9 Active 02166511 Problem Constipation, unspecified constipation type K59.00 Active 06089235 Problem Mild episode of recurrent major depressive disorder F33.0 Active 400758146 Problem Restless leg syndrome G25.81 Active 02978930 Problem Nonadherence to medication Z91.14 Act vivian 463915097 Problem Slow transit constipation K59.01 Acti ve 47834550 Problem Atrophic vaginitis N95.2 Active 5 6934387 Problem Paroxysmal tachycardia I47.9 Active 00541671 Problem Other chronic pain G89.29 Active 8 0313969 Problem Mild intermittent asthma without complication J45. 20 Active 790701128 Problem Obesity (BMI 30.0-34.9) E66.9 Active [id number] Problem High blood pressure I10 Active 37311406 ALLERGIES No Information ENCOUNTERS Encounter Location Date Diagnosis [facility] [address] [facility] [id number] [address] [place] [address] Nov, [facility] [address] [facility] [id number] [address] [place] [address] Nov, [address] [id number] [id number] Oct, Breast cancer screening Z12.[address] 340[id number] [place] [address] 08 Oct, 2019 Breast cancer screening Z12. 39 [facility] [address] [id number] [address] [place] [address] Oct, [facility] [address] [id number] [address] [place] [address] Oct, [facility] [address] [facility] [id number] [address] [place] [address] September, [facility] [address] [id number] [address] [place] [address] September, [facility] [address] [facility] [id number] [address] [place] [address] September, Well woman exam with routine gynecological exam Z01.419 and Atrophic vaginitis N95.2 [facility] [address] [facility] [id number] [address] [place] [address] September, Major depressive disorder in partial remission F32.4 ; FRANCIS (generalized anxiety disorder) F41.1 ; Restless leg syndrome G25.81 and Nonadherence to medication Z91.14 [facility] [address] [facility] [id number] [address] [place] [phone] September, [facility] [address] [facility] [id number] [address] [place] [address] Aug, [facility] [address] [id number] [address] [place] [id number] Aug, Dental examination Z01.20 [facility] [address] [id number] [address] [place] [id number] Aug, Dental examination Z01.20 an d Caries K02.9 [facility] [address] [id number] [address] [place] [address] Aug, [facility] [address] [facility] [id number] [address] [place] [address] Aug, [facility] [address] [id number] [address] [place] [address] 11 Aug, 2019 Other chronic pain G89.29 an d Back muscle spasm M62.830 [facility] [address] [id number] [address] [place] [address] 07 Aug, 2019 [facility] [address] [facility] [id number] [address] [place] [address] Aug, Major depressive disorder in partial remission F32.4 ; FRANCIS (generalized anxiety disorder) F41.1 ; Restless leg syndrome G25.81 and Nonadherence to medication Z91.14 [facility] [address] [id number] [address] [place] [phone] Aug, [facility] [address] [id number] [address] [place] [address] Jul, [facility] [address] [facility] [id number] [address] [place] [address] Jul, [facility] [address] [id number] [address] [place] [address] Jul, Major depressive disorder in partial remission F32.4 ; FRANCIS (generalized anxiety disorder) F41.1 ; Restless leg syndrome G25.81 and High blood pressure I10 [facility] [address] [id number] [address] [place] [address] 17 Jul, 2019 [facility] [address] [facility] [id number] [address] [place] [address] Jul, [facility] [address] [id number] [address] [place] [address] Jun, [facility] [address] [facility] [id number] [address] [place] [address] May, [facility] [address] [id number] [address] [place] [address] Apr, [facility] [address] [facility] [id number] [address] [place] [address] Apr, [facility] [address] [id number] [address] [place] [address] Mar, [facility] [address] [id number] [address] [place] [address] Mar, Major depressive disorder in partial remission F32.4 ; FRANCIS (generalized anxiety disorder) F41.1 and Restless leg syndrome G25.81 [facility] [address] [id number] [address] [place] [address] Mar, Obesity (BMI 30.0-34.9) E66. 9 [facility] [address] [id number] [address] [place] [address] Jan, [facility] [address] [id number] [address] [place] [address] Jan, Burn T30.0 [facility] [address] [id number] [address] [place] [address] Dec, [facility] [address] [id number] [address] [place] [address] Nov, [facility] [address] [id number] [address] [place] [address] Nov, [facility] [address] [id number] [address] [place] [id number] Nov, Dental examination Z01.20 [facility] [address] [id number] [address] [place] [address] September, [facility] [address] [id number] [address] [place] [id number] September, Decay, teeth K02.9 and Denta l examination Z01.20 [facility] [address] [id number] [address] [place] [id number] September, Dental examination Z01.20 [facility] [address] [id number] [address] [place] [address] September, FRANCIS (generalized anxiety dis order) F41.1 ; Major depressive disorder in partial remission F32.4 and Restless leg syndrome G25.81 [facility] [address] [facility] [id number] [address] [place] [address] Aug, [facility] [address] [facility] [id number] [address] [place] [address] Jul, [facility] [address] [place] [id number] [address] [place] [address] Jul, Encounter to discuss test re sults Z71.2 [facility] [address] [facility] [id number] [address] [place] [address] Jul, Pelvic pain R10.2 ; Screenin g for breast cancer Z12.31 and Obesity (BMI 30.0-34.9) E66.9 [facility] [address] [place] [id number] [address] [place] [phone] Jul, Mild intermittent asthma wit hout complication J45.20 [facility] [address] [facility] [id number] [address] [place] [address] Jul, Major depressive disorder in partial remission F32.4 and FRANCIS (generalized anxiety disorder) F41.1 [facility] [address] [facility] [id number] [address] [place] [address] Jul, [facility] [address] [place] [id number] [address] [place] [address] Jun, [facility] [address] [place] [id number] [address] [place] [address] May, Major depressive disorder in partial remission F32.4 ; FRANCIS (generalized anxiety disorder) F41.1 and Restless leg syndrome G25.81 [facility] [address] [facility] [id number] [address] [place] [address] Apr, [facility] [address] [facility] [id number] [address] [place] [address] Mar, [facility] [address] [id number] [address] [place] [address] 21 Jan, 2018 Pain in thoracic spine M54.6 and Other chronic pain G89.29 [facility] [address] [id number] [address] [place] [address] 14 Jan, 2018 [facility] [address] [id number] [address] [place] [address] 11 Jan, 2018 Mild episode of recurrent ma saray depressive disorder F33.0 ; FRANCIS (generalized anxiety disorder) F41.1 and Restless leg syndrome G25.81 [facility] [address] [id number] [address] [place] [address] Dec, [facility] [address] [id number] [address] [place] [address] Dec, Hospital discharge follow-up Z09 [facility] [address] [id number] [address] [place] [address] Nov, [facility] [address] [id number] [address] [place] [address] Nov, [facility] [address] [id number] [address] [place] [address] September, [facility] [address] [id number] [address] [place] [address] September, [facility] [address] [id number] [address] [place] [address] September, Major depressive disorder in partial remission F32.4 ; FRANCIS (generalized anxiety disorder) F41.1 and Restless leg syndrome G25.81 [facility] [address] [id number] [address] [place] [address] September, [facility] [address] [id number] [address] [place] [address] Jul, [facility] [address] [id number] [address] [place] [address] Jul, Dorsalgia, unspecified M54.9 [place] [address] [id number] [address] [place] [address] Jul, Mild episode of recurrent ma saray depressive disorder F33.0 and FRANCIS (generalized anxiety disorder) F41.1 [facility] [address] [id number] [address] [place] [address] May, [facility] [address] [id number] [address] [place] [address] May, Dysuria R30.0 and Acute cyst itis with hematuria N30.01 [facility] [address] [id number] [address] [place] [address] Apr, [place] [address] [facility] [id number] [address] [place] [address] Apr, Major depressive disorder in partial remission F32.4 and FRANCIS (generalized anxiety disorder) F41.1 [place] [address] [id number] [address] [place] [address] Mar, Paroxysmal tachycardia I47.9 [facility] [address] [id number] [address] [place] [address] Mar, Paroxysmal tachycardia I47.9 and Pain of left lower extremity M79.605 [place] [address] [id number] [address] [place] [address] Mar, FRANCIS (generalized anxiety dis order) F41.1 and Major depressive disorder in partial remission F32.4 [facility] [address] [id number] [address] [place] [address] Jan, [facility] [address] [id number] [address] [place] [address] Jan, [place] [address] [facility] [id number] [address] [place] [address] Jan, [facility] [address] [id number] [address] [place] [address] Dec, Constipation, unspecified co nstipation type K59.00 [facility] [address] [id number] [address] [place] [address] Dec, [facility] [address] [id number] [address] [place] [address] Nov, [facility] [address] [facility] [id number] [address] [place] [address] Nov, Major depressive disorder in partial remission F32.4 and FRANCIS (generalized anxiety disorder) F41.1 [facility] [address] [id number] [address] [place] [address] Oct, Abdominal pain R10.9 and Slo w transit constipation K59.01 [place] [address] [facility] [id number] [address] [place] [address] Aug, Major depressive disorder in partial remission F32.4 ; FRANCIS (generalized anxiety disorder) F41.1 ; Conversion disorder (or hysterical neurosis, conversion type) F44.9 ; Dorsalgia, unspecified M54.9 and Long-term use of high-risk medication Z79.899 [place] [address] [facility] [id number] [address] [place] [address] Aug, [place] [address] [facility] [id number] [address] [place] [address] Jul, Paroxysmal tachycardia I47.9 [place] [address] [facility] [id number] [address] [place] [address] Jul, Paroxysmal tachycardia I47.9 [facility] [address] [id number] [address] [place] [address] Jun, [place] [address] [facility] [id number] [address] [place] [address] Jun, Major depressive disorder in partial remission F32.4 ; FRANCIS (generalized anxiety disorder) F41.1 and Conversion disorder (or hysterical neurosis, conversion type) F44.9 [facility] [address] [facility] [id number] [address] [place] [address] May, Pelvic pain R10.2 [facility] [address] [facility] [id number] [address] [place] [address] Apr, Gastroenteritis K52.9 [facility] [address] [facility] [id number] [address] [place] [address] Apr, Blood in urine R31.9 and Acu te cystitis with hematuria N30.01 [facility] [address] [facility] [id number] [address] [place] [address] Apr, Major depressive disorder in partial remission F32.4 ; FRANCIS (generalized anxiety disorder) F41.1 and Conversion disorder (or hysterical neurosis, conversion type) F44.9 [facility] [address] [place] [id number] [address] [place] [address] Apr, [place] [address] [address] Apr, Abnormal mammogram R92.8 [facility] [address] [facility] [id number] [place] [address] Mar, [place] [address] [place] [id number] [place] [address] Mar, Gastroenteritis K52.9 and Se izure disorder G40.909 [facility] [address] [place] [id number] [address] [place] [address] Dec, [facility] [address] [facility] [id number] [address] [place] [address] Dec, Other headache syndrome G44. 89 [facility] [address] [place] [id number] [address] [place] [address] Dec, [place] [address] [place] [id number] [place] [address] Dec, Thoracic disc herniation M51 .24 [facility] [address] [place] [id number] [address] [place] [address] Dec, [facility] [address] [id number] [address] [place] [address] Nov, Major depressive disorder in partial remission F32.4 and FRANCIS (generalized anxiety disorder) F41.1 [facility] [address] [id number] [address] [place] [address], [place] [address] Nov, [facility] [address] [id number] [address] [place] [address] Nov, Dorsalgia, unspecified M54.9 [facility] [address] [id number] [address] [place] [address], [place] [address] Oct, [facility] [address] [id number] [address] [place] [address], [place] [address] September, [facility] [address] [id number] [address] [place] [address] Aug, [facility] [address] [id number] [address] [place] [address] Aug, Major depressive disorder in partial remission F32.4 and FRANCIS (generalized anxiety disorder) F41.1 [facility] [address] [id number] [address] [place] [address] Aug, [facility] [address] [id number] [address] [place] [address] Jul, Abnormal mammogram R92.8 [facility] [address] [id number] [address] [place] [address] Jul, [facility] [address] [id number] [address] [place] [address] Jul, [facility] [address] [id number] [address] [place] [address] 14 Jul, 2015 [facility] [address] [id number] [address] [place] [address] Jul, [facility] [address] [id number] [address] [place] [address] Jul, [facility] [address] [id number] [address] [place] [address] Jul, [facility] [address] [id number] [address] [place] [address] Jun, Major depressive disorder in partial remission F32.4 and FRANCIS (generalized anxiety disorder) F41.1 [facility] [address] [id number] [address] [place] [address] Jun, [facility] [address] [id number] [address] [place] [address] May, [facility] [address] [id number] [address] [place] [address] Apr, [facility] [address] [id number] [address] [place] [address] Mar, Major depressive disorder, r ecurrent episode, moderate F33.1 ; PTSD (post-traumatic stress disorder) F43.10 and FRANCIS (generalized anxiety disorder) F41.1 [facility] [address] [id number] [address] [place] [address] Mar, [facility] [address] [id number] [address] [place] [address] Mar, [facility] [address] [id number] [address] [place] [address] Mar, [facility] [address] [id number] [address] [place] [address] Mar, [facility] [address] [id number] [address] [place] [address] Jan, [facility] [address] [id number] [address] [place] [address] Jan, [facility] [address] [id number] [address] [place] [address] Jan, [facility] [address] [id number] [address] [place] [address] Jan, Thoracic disc herniation 722 .11 [facility] [address] [id number] [address] [place] [address] Dec, [facility] [address] [id number] [address] [place] [address] Dec, [facility] [address] [id number] [address] [place] [address] Dec, [facility] [address] [id number] [address] [place] [address] Nov, [facility] [address] [id number] [address] [place] [address] Nov, Generalized anxiety disorder 300.02 ; Posttraumatic stress disorder 309.81 and Major depressive disorder, recurrent episode, moderate 296.32 [facility] [address] [id number] [address] [place] [address] Nov, [facility] [address] [id number] [address] [place] [address] Nov, [facility] [address] [id number] [address] [place] [address] Oct, [facility] [address] [id number] [address] [place] [address] Oct, [facility] [address] [id number] [address] [place] [address] Oct, [facility] [address] [id number] [address] [place] [address] September, [facility] [address] [id number] [address] [place] [address] September, [facility] [address] [id number] [address] [place] [address] Aug, [facility] [address] [id number] [address] [place] [address] Aug, [facility] [address] [id number] [address] [place] [address], [place] [address] 25 Jul, 2014 [facility] [address] [id number] [address] [place] [address], [place] [address] Jul, [facility] [address] [id number] [address] [place] [address], [place] [id number] 17 Jul, 2014 [facility] [address] [id number] [address] [place] [address], [place] [id number] 17 Jul, 2014 [facility] [address] [id number] [address] [place] [address], [place] [id number] 16 Jul, 2014 [facility] [address] [id number] [address] [place] [address], [place] [id number] 16 Jul, 2014 [facility] [address] [id number] [address] [place] [address], [place] [id number] 19 Jul, 2014 [facility] [address] [id number] [address] [place] [address], [place] [id number] Jul, [facility] [address] [id number] [address] [place] [address], [place] [id number] Jul, [facility] [address] [id number] [address] [place] [address], [place] [id number] Jul, [facility] [address] [id number] [address] [place] [address], [place] [id number] Jun, [facility] [address] [id number] [address] [place] [address], [place] [id number] Jun, [facility] [address] [id number] [address] [place] [address], [place] [id number] Jun, [facility] [address] [id number] [address] [place] [address], [place] [id number] May, [facility] [address] [id number] [address] [place] [address], [place] [id number] Apr, [facility] [address] [id number] [address] [place] [address], [place] [id number] Apr, [facility] [address] [address] [id number] [address] [place] [address], [place] [address] Apr, [facility] [address] [id number] [address] [place] [address], [place] [address] Apr, [facility] [address] [id number] [address] [place] [address], [place] [address] Apr, [facility] [address] [id number] [address] [place] [address], [place] [address] Apr, [facility] [address] [id number] [address] [place] [address], [place] [address] Apr, [facility] [address] [id number] [address] [place] [address], [place] [address] Apr, [facility] [address] [id number] [address] [place] [address], [place] [address] Mar, [facility] [address] [id number] [address] [place] [address], [place] [address] Mar, [facility] [address] [id number] [address] [place] [address], [place] [address] Mar, [facility] [address] [id number] [address] [place] [address], [place] [address] Mar, [facility] [address] [id number] [address] [place] [address] Mar, [facility] [address] [id number] [address] [place] [address] Mar, [facility] [address] [id number] [address] [place] [address], [place] [address] Mar, [facility] [address] [id number] [address] [place] [address], [place] [address] Mar, [facility] [address] [id number] [address] [place] [address], [place] [address] Mar, [facility] [address] [id number] [address] [place] [address], [place] [address] 2013 [facility] [address] [id number] [address] [place] [address], [place] [address] 17 Mar, 2013 [facility] [address] [id number] [address] [place] [address], [place] [address] 14 Mar, 2013 [facility] [address] [id number] [address] [place] [address], [place] [address] 14 Mar, 2013 [facility] [address] [id number] [address] [place] [address], [place] [address] 07 Mar, 2013 [facility] [address] [id number] [address] [place] [address], [place] [address] 07 Mar, 2013 [facility] [address] [id number] [address] [place] [address], [place] [address] 06 Mar, 2013 [facility] [address] [id number] [address] [place] [address], [place] [address] 06 Mar, 2013 [facility] [address] [id number] [address] [place] [address], [place] [address] 19 Sep, 2013 [facility] [address] [id number] [address] [place] [address], [place] [address] 19 Sep, 2013 [facility] [address] [id number] [address] [place] [address], [place] [address] 09 Sep, 2013 [facility] [address] [id number] [address] [place] [address], [place] [address] 09 Sep, 2013 [facility] [address] [id number] [address] [place] [address], [place] [address] 05 Sep, 2013 [facility] [address] [id number] [address] [place] [address], [place] [address] 05 Sep, 2013 [facility] [address] [id number] [address] [place] [address], [place] [address] 05 Sep, 2013 [facility] [address] [id number] [address] [place] [address], [place] [address] 05 Sep, 2013 [facility] [address] [id number] [address] [place] [address], [place] [address] Jan, 2013 [facility] [address] [id number] [address] [place] [address], [place] [address] Jan, [facility] [address] [id number] [address] [place] [address], [place] [address] Jan, 2013 [facility] [address] [id number] [address] [place] [address], [place] [address] Jan, [facility] [address] [id number] [address] [place] [address], [place] [address] Jan, [facility] [address] [id number] [address] [place] [address], [place] [address] Dec, [facility] [address] [id number] [address] [place] [address], [place] [address] Dec, [facility] [address] [id number] [address] [place] [address], [place] [address] Dec, [facility] [address] [id number] [address] [place] [address], [place] [address] Dec, [facility] [address] [id number] [address] [place] [address], [place] [address] Dec, [facility] [address] [id number] [address] [place] [address], [place] [address] Dec, [facility] [address] [place] [id number] Dec, [facility] [address] [place] [id number] Dec, [facility] [address] [id number] [address] [place] [address], [place] [address] Dec, [facility] [address] [id number] [address] [place] [address], [place] [address] Dec, [facility] [address] [id number] [address] [place] [address], [place] [address] Dec, [facility] [address] [id number] [facility] [place] [address] Dec, [facility] [address] [id number] [facility] [place] [address] Nov, [facility] [address] [id number] [facility] [place] [address] Nov, [facility] [address] [id number] [address] [place] [address], [place] [address] Nov, [facility] [address] [id number] [address] [place] [address], [place] [address] Nov, [facility] [address] [id number] [address] [place] [address], [place] [address] Nov, [facility] [address] [id number] [address] [place] [address], [place] [address] Nov, [facility] [address] [id number] [address] [place] [address], [place] [address] Nov, [facility] [address] [id number] [address] [place] [address], [place] [address] Nov, [facility] [address] [id number] [address] [place] [address], [place] [address] Nov, [facility] [address] [id number] [address] [place] [address], [place] [address] Nov, [facility] [address] [id number] [address] [place] [address], [place] [address] Nov, [facility] [address] [id number] [address] [place] [address], [place] [address] Nov, [facility] [address] [id number] [address] [place] [address], [place] [address] Nov, [facility] [address] [id number] [address] [place] [address], [place] [address] Oct, [facility] [address] [id number] [address] [place] [address], [place] [address] Oct, [facility] [address] [id number] [facility] [place] [address] Oct, [facility] [address] [id number] [address] [place] [address], [place] [address] Oct, [facility] [address] [id number] [address] [place] [address], [place] [address] Oct, [facility] [address] [id number] [address] [place] [address], [place] [address] Oct, [facility] [address] [id number] [address] [place] [address], [place] [address] Oct, [facility] [address] [id number] [address] [place] [address], [place] [address] Oct, [facility] [address] [id number] [address] [place] [address], [place] [address] Oct, [facility] [address] [id number] [address] [place] [address], [place] [address] Oct, [facility] [address] [id number] [address] [place] [address], [place] [address] Oct, [facility] [address] [id number] [address] [place] [address], [place] [address] Oct, [facility] [address] [id number] [address] [place] [address], [place] [address] September, [facility] [address] [id number] [address] [place] [address], [place] [address] September, [facility] [address] [id number] [address] [place] [address], [place] [address] September, [facility] [address] [id number] [address] [place] [address], [place] [address] September, [facility] [address] [id number] [address] [place] [address], [place] [address] Aug, [facility] [address] [id number] [facility] [place] [address] Aug, [facility] [address] [id number] [facility] [place] [address] Aug, [facility] [address] [id number] [facility] [place] [address] Aug, [facility] [address] [id number] [address] [place] [address], [place] [address] Aug, [facility] [address] [id number] [address] [place] [address], [place] [address] Aug, [facility] [address] [id number] [address] [place] [address], [place] [address] Aug, [facility] [address] [id number] [address] [place] [address], [place] [address] Jul, [facility] [address] [id number] [address] [place] [address], [place] [address] Jul, [facility] [address] [id number] [address] [place] [address], [place] [address] Jul, [facility] [address] [id number] [address] [place] [address], [place] [address] Jul, [facility] [address] [id number] [address] [place] [address], [place] [address] Jul, [facility] [address] [id number] [address] [place] [address], [place] [address] Jul, [facility] [address] [id number] [address] [place] [address], [place] [address] Jul, [facility] [address] [id number] [address] [place] [address], [place] [address] Jul, [facility] [address] [id number] [address] [place] [address], [place] [address] Jul, [facility] [address] [id number] [address] [place] [address], [place] [address] Jul, [facility] [address] [id number] [facility] [place] [address] 18 Jul, 2013 [facility] [address] [id number] [address] [place] [address], [place] [address] 18 Jul, 2013 [facility] [address] [id number] [address] [place] [address], [place] [address] 14 Jul, 2013 [facility] [address] [id number] [address] [place] [address], [place] [address] 14 Jul, 2013 [facility] [address] [id number] [address] [place] [address], [place] [address] Jul, [facility] [address] [id number] [address] [place] [address], [place] [address] Jul, [facility] [address] [id number] [address] [place] [address], [place] [address] Jul, [facility] [address] [id number] [address] [place] [address], [place] [address] Jul, [facility] [address] [id number] [address] [place] [address], [place] [address] Jun, [facility] [address] [id number] [address] [place] [address], [place] [address] Jun, [facility] [address] [id number] [address] [place] [address], [place] [address] Jun, [facility] [address] [id number] [address] [place] [address], [place] [address] 15 Jun, 2013 [facility] [address] [id number] [address] [place] [address], [place] [address] Jun, [facility] [address] [id number] [address] [place] [address], [place] [address] Jun, [facility] [address] [id number] [address] [place] [address], [place] [address] 14 Jun, 2013 [facility] [address] [id number] [address] [place] [address], [place] [address] 14 Jun, 2013 [facility] [address] [id number] [address] [place] [address], [place] [address] 14 Jun, 2013 [facility] [address] [id number] [address] [place] [address], [place] [address] 14 Jun, 2013 [facility] [address] [id number] [address] [place] [address], [place] [address] 27 May, 2013 [facility] [address] [id number] [address] [place] [address], [place] [address] 27 May, 2013 [facility] [address] [id number] [address] [place] [address], [place] [address] 26 May, 2013 [facility] [address] [id number] [address] [place] [address], [place] [address] 19 May, 2013 [facility] [address] [id number] [address] [place] [address], [place] [address] 19 May, 2013 [facility] [address] [id number] [address] [place] [address], [place] [address] 16 May, 2013 [facility] [address] [id number] [address] [place] [address], [place] [address] 16 May, 2013 [facility] [address] [id number] [address] [place] [address], [place] [address] 16 May, 2013 [facility] [address] [id number] [address] [place] [address], [place] [address] 16 May, 2013 [facility] [address] [id number] [address] [place] [address], [place] [address] 13 May, 2013 [facility] [address] [id number] [address] [place] [address], [place] [address] 13 May, 2013 [facility] [address] [id number] [address] [place] [address], [place] [address] 11 May, 2013 [facility] [address] [id number] [address] [place] [address], [place] [address] Apr, [facility] [address] [id number] [address] [place] [address], [place] [address] 18 Apr, 2013 [facility] [address] [id number] [address] [place] [address], [place] [address] 18 Apr, 2013 [facility] [address] [id number] [address] [place] [address], [place] [address] Apr, [facility] [address] [id number] [address] [place] [address], [place] [address] Apr, [facility] [address] [id number] [address] [place] [address], [place] [address] Apr, [facility] [address] [id number] [address] [place] [address], [place] [address] Apr, [facility] [address] [id number] [address] [place] [address], [place] [address] Apr, [facility] [address] [id number] [address] [place] [address] Apr, [facility] [address] [id number] [address] [place] [address], [place] [address] Apr, [facility] [address] [id number] [address] [place] [address] Apr, [facility] [address] [id number] [address] [place] [address] Mar, [facility] [address] [id number] [address] [place] [address] Mar, [facility] [address] [id number] [address] [place] [address] Mar, [facility] [address] [id number] [address] [place] [address] Mar, [facility] [address] [id number] [address] [place] [address] Mar, [facility] [address] [id number] [address] [place] [address] Mar, [facility] [address] [id number] [address] [place] [address], [place] [address] Mar, [facility] [address] [id number] [address] [place] [address], [place] [address] Mar, [facility] [address] [id number] [address] [place] [address], [place] [address] Mar, [facility] [address] [id number] [address] [place] [address], [place] [address] Mar, [facility] [address] [id number] [address] [place] [address], [place] [address] Mar, [facility] [address] [id number] [address] [place] [address], [place] [address] Mar, [facility] [address] [id number] [address] [place] [address], [place] [address] 30 Jan, 2013 [facility] [address] [id number] [address] [place] [address], [place] [address] Jan, [facility] [address] [id number] [address] [place] [address], [place] [address] 20 Jan, 2013 [facility] [address] [id number] [address] [place] [address], [place] [address] Jan, [facility] [address] [id number] [address] [place] [address], [place] [address] Dec, [facility] [address] [id number] [address] [place] [address], [place] [address] Dec, [facility] [address] [id number] [address] [place] [address], [place] [address] Dec, [facility] [address] [id number] [address] [place] [address], [place] [address] Dec, [facility] [address] [id number] [address] [place] [address], [place] [address] Dec, [facility] [address] [id number] [facility] [place] [address] Dec, [facility] [address] [id number] [address] [place] [address], [place] [address] Dec, [facility] [address] [id number] [address] [place] [address], [place] [address] Dec, [facility] [address] [id number] [address] [place] [address], [place] [address] Dec, [facility] [address] [id number] [address] [place] [address], [place] [address] Nov, [facility] [address] [id number] [address] [place] [address], [place] [address] Nov, [facility] [address] [id number] [address] [place] [address], [place] [address] Nov, [facility] [address] [id number] [address] [place] [address], [place] [address] Nov, [facility] [address] [id number] [address] [place] [address], [place] [address] Nov, [facility] [address] [id number] [address] [place] [address], [place] [address] Nov, [facility] [address] [id number] [address] [place] [address], [place] [address] Nov, [facility] [address] [id number] [address] [place] [address], [place] [address] Nov, [facility] [address] [id number] [address] [place] [address], [place] [address] Oct, [facility] [address] [id number] [address] [place] [address], [place] [address] Oct, [facility] [address] [id number] [address] [place] [address], [place] [address] Oct, [facility] [address] [id number] [address] [place] [address], [place] [address] Oct, [facility] [address] [id number] [address] [place] [address], [place] [address] Oct, [facility] [address] [id number] [address] [place] [address], [place] [address] Oct, [facility] [address] [id number] [address] [place] [address], [place] [address] Oct, [facility] [address] [id number] [address] [place] [address], [place] [address] Oct, [facility] [address] [id number] [address] [place] [address], [place] [address] Oct, [facility] [address] [id number] [address] [place] [address], [place] [address] 18 Oct, 2012 [facility] [address] [id number] [address] [place] [address], [place] [address] 17 Oct, 2012 [facility] [address] [id number] [address] [place] [address], [place] [address] 14 Oct, 2012 [facility] [address] [id number] [address] [place] [address], [place] [address] 07 Oct, 2012 [facility] [address] [id number] [address] [place] [address], [place] [address] 30 Sep, 2012 [facility] [address] [id number] [address] [place] [address], [place] [address] September, [facility] [address] [id number] [address] [place] [address], [place] [address] September, [facility] [address] [id number] [address] [place] [address], [place] [address] Aug, [facility] [address] [id number] [address] [place] [address], [place] [address] 24 Aug, 2012 [facility] [address] [id number] [address] [place] [address], [place] [address] 18 Aug, 2012 [facility] [address] [id number] [address] [place] [address], [place] [address] 18 Aug, 2012 [facility] [address] [id number] [address] [place] [address], [place] [address] 18 Aug, 2012 [facility] [address] [id number] [address] [place] [address], [place] [address] 08 Aug, 2012 [facility] [address] [id number] [address] [place] [address], [place] [address] 05 Aug, 2012 [facility] [address] [id number] [address] [place] [address], [place] [address] Jul, [facility] [address] [id number] [address] [place] [address], [place] [address] Jul, [facility] [address] [id number] [address] [place] [address], [place] [address] Jul, [facility] [address] [id number] [address] [place] [address], [place] [address] Jul, [facility] [address] [id number] [address] [place] [address], [place] [address] Jul, [facility] [address] [id number] [address] [place] [address], [place] [address] Jul, [facility] [address] [id number] [address] [place] [address], [place] [address] Jul, [facility] [address] [id number] [address] [place] [address], [place] [address] Jul, [facility] [address] [id number] [address] [place] [address], [place] [address] Jul, [facility] [address] [id number] [address] [place] [address], [place] [address] 19 Jul, 2012 [facility] [address] [id number] [address] [place] [address], [place] [address] 11 Jul, 2012 [facility] [address] [id number] [address] [place] [address], [place] [address] 06 Jul, 2012 [facility] [address] [id number] [address] [place] [address], [place] [address] Jul, [facility] [address] [id number] [address] [place] [address], [place] [address] 24 Jun, 2012 [facility] [address] [id number] [address] [place] [address], [place] [address] Jun, [facility] [address] [id number] [address] [place] [address], [place] [address] Jun, [facility] [address] [id number] [address] [place] [address], [place] [address] 17 Jun, 2012 [facility] [address] [id number] [address] [place] [address], [place] [address] 15 Jun, 2012 [facility] [facility] [address] [id number] [address] [place] [address], [place] [address] Jun, [facility] [address] [id number] [address] [place] [address], [place] [address] Jun, [facility] [address] [id number] [address] [place] [address], [place] [address] May, [facility] [address] [id number] [address] [place] [address], [place] [address] May, [facility] [address] [id number] [address] [place] [address], [place] [address] May, [facility] [address] [id number] [address] [place] [address], [place] [address] May, [facility] [address] [id number] [address] [place] [address], [place] [address] May, [facility] [address] [id number] [address] [place] [address], [place] [address] 24 May, 2012 [facility] [address] [id number] [address] [place] [address], [place] [address] May, [facility] [address] [id number] [address] [place] [address], [place] [address] May, [facility] [address] [id number] [address] [place] [address], [place] [address] May, [facility] [address] [id number] [address] [place] [address], [place] [address] May, [facility] [address] [id number] [address] [place] [address], [place] [address] Apr, [facility] [address] [id number] [address] [place] [address], [place] [address] Apr, [facility] [address] [id number] [address] [place] [address], [place] [address] Apr, [facility] [address] [id number] [address] [place] [address], [place] [address] Apr, [facility] [address] [id number] [address] [place] [address], [place] [address] Apr, [facility] [address] [id number] [address] [place] [address], [place] [address] Apr, [facility] [address] [id number] [address] [place] [address], [place] [address] Apr, [facility] [address] [id number] [address] [place] [address], [place] [address] Apr, [facility] [address] [id number] [address] [place] [address], [place] [address] Apr, [facility] [address] [id number] [address] [place] [address], [place] [address] Apr, [facility] [address] [id number] [address] [place] [address], [place] [address] Apr, [facility] [address] [id number] [address] [place] [address], [place] [address] Apr, [facility] [address] [id number] [address] [place] [address], [place] [address] Mar, [facility] [address] [id number] [address] [place] [address], [place] [address] Mar, 2011 [facility] [address] [id number] [address] [place] [address], [place] [address] Mar, 2011 [facility] [address] [id number] [address] [place] [address], [place] [address] Mar, 2011 [facility] [address] [id number] [address] [place] [address], [place] [address] Mar, 2011 [facility] [address] [id number] [address] [place] [address], [place] [address] Mar, 2011 [facility] [address] [id number] [address] [place] [address], [place] [address] Mar, 2011 [facility] [address] [id number] [address] [place] [address], [place] [address] Mar, 2011 [facility] [address] [id number] [address] [place] [address], [place] [address] Mar, 2011 [facility] [address] [id number] [address] [place] [address], [place] [address] Mar, [facility] [address] [id number] [address] [place] [address] Mar, [facility] [address] [id number] [address] [place] [id number] Mar, [facility] [address] [id number] [address] [place] [address] Mar, [facility] [address] [id number] [address] [place] [address], [place] [address] Mar, [facility] [address] [id number] [address] [place] [id number] Mar, [facility] [address] [id number] [address] [place] [address] Mar, [facility] [address] [id number] [address] [place] [address] 25 Sep, 2011 [facility] [address] [id number] [address] [place] [address], [place] [address] 24 Sep, 2011 [facility] [address] [id number] [address] [place] [address], [place] [address] 22 Jan, 2011 [facility] [address] [id number] [address] [place] [address], [place] [address] 22 Jan, 2011 [facility] [address] [id number] [address] [place] [address], [place] [address] 21 Jan, 2011 [facility] [address] [id number] [address] [place] [address], [place] [address] 18 Jan, 2011 [facility] [address] [id number] [address] [place] [address], [place] [address] 14 Jan, 2012 [facility] [address] [id number] [address] [place] [address], [place] [address] 07 Jan, 2012 [facility] [address] [id number] [address] [place] [address], [place] [address] 15 Dec, 2011 [facility] [address] [id number] [address] [place] [address], [place] [address] 10 Dec, 2011 [facility] [address] [id number] [address] [place] [address], [place] [address] Dec, [facility] [address] [id number] [address] [place] [address], [place] [address] Dec, [facility] [address] [id number] [address] [place] [address], [place] [address] Dec, [facility] [address] [id number] [address] [place] [address], [place] [address] Dec, [facility] [address] [id number] [address] [place] [address], [place] [address] Dec, [facility] [address] [id number] [address] [place] [address], [place] [address] Nov, [facility] [address] [id number] [address] [place] [address], [place] [address] 06 Oct, 2011 [facility] [address] [id number] [address] [place] [address], [place] [address] 05 Aug, 2011 [facility] [address] [id number] [address] [place] [address], [place] [address] 22 Jul, 2011 [facility] [address] [id number] [address] [place] [address], [place] [address] 19 Jul, 2011 [facility] [address] [id number] [address] [place] [address], [place] [address] 16 Jul, 2011 [facility] [address] [id number] [address] [place] [address], [place] [address] 14 Jul, 2011 [facility] [address] [id number] [address] [place] [address], [place] [address] 07 Jul, 2011 [facility] [address] [id number] [address] [place] [address], [place] [address] 02 Jul, 2011 [facility] [address] [id number] [address] [place] [address], [place] [address] 21 Jul, 2011 [facility] [address] [id number] [address] [place] [address], [place] [address] 15 Jul, 2011 [facility] [address] [id number] [address] [place] [address], [place] [address] 13 Jul, 2011 [facility] [address] [id number] [address] [place] [address], [place] [address] 03 Jul, 2011 [facility] [address] [id number] [address] [place] [address], [place] [address] 02 Jul, 2011 [facility] [address] [id number] [address] [place] [address], [place] [address] 24 Jun, 2011 [facility] [address] [id number] [address] [place] [address], [place] [address] 24 Jun, 2011 [facility] [address] [id number] [address] [place] [address], [place] [address] Jun, [facility] [address] [id number] [address] [place] [address], [place] [address] Jun, [facility] [address] [id number] [address] [place] [address], [place] [address] Jun, [facility] [address] [id number] [address] [place] [address], [place] [address] Jun, [facility] [address] [id number] [address] [place] [address], [place] [address] Jun, [facility] [address] [id number] [address] [place] [address], [place] [address] May, [facility] [address] [id number] [address] [place] [address], [place] [address] May, [facility] [address] [id number] [address] [place] [address], [place] [address] May, [facility] [address] [id number] [address] [place] [address], [place] [address] May, [facility] [address] [id number] [address] [place] [address], [place] [address] May, [facility] [address] [id number] [address] [place] [address], [place] [address] May, [facility] [address] [id number] [address] [place] [address], [place] [address] May, [facility] [address] [id number] [address] [place] [address], [place] [address] May, [facility] [address] [id number] [address] [place] [address], [place] [address] May, [facility] [address] [id number] [address] [place] [address], [place] [address] May, [facility] [address] [id number] [address] [place] [address], [place] [address] 15 Apr, 2011 [facility] [address] [id number] [address] [place] [address] Apr, [facility] [address] [id number] [address] [place] [address] Apr, [facility] [address] [facility] [id number] [address] [place] [address] Apr, [facility] [address] [facility] [id number] [address] [place] [id number] Mar, [facility] [address] [facility] [id number] [address] [place] [id number] Mar, [facility] [address] [facility] [id number] [address] [place] [address] Mar, [facility] [address] [facility] [id number] [address] [place] [address] Mar, IMMUNIZATIONS No Known Immunizations SOCIAL HISTORY [...] History Colonoscopy Hospitalization History surgeries Hospitalization History [facility] for seizures 03/24/16 Hospitalization History [facility] for kidney stones/hypertension 0 12/2017
--- OUTSIDE RECORDS SUMMARY | 2020-01-03 17:49 | XMS REPORT ---
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 Name Role Phone Migration, Doctor Unavailable Unavailable PROBLEMS Type Condition ICD9-CM Code JPC84-LZ Code Onset Dates Condition S tatus SNOMED Code Problem FRANCIS (generalized anxiety disorder) F41.1 Active 94149841 Problem Thoracic disc herniation M51.24 Activ e 861363703 Problem Major depressive disorder in partial remission F32 .4 Active 72469554 Problem Seizure disorder G40.909 Active 128 582708 Problem Conversion disorder (or hysterical neurosis, conversion ty pe) F44.9 Active 65483075 Problem Constipation, unspecified constipation type K59.00 Active 34317113 Problem Mild episode of recurrent major depressive disorder F33.0 Active 089224836 Problem Restless leg syndrome G25.81 Active 93842623 Problem Nonadherence to medication Z91.14 Act vivian 722641400 Problem Slow transit constipation K59.01 Acti ve 23963196 Problem Atrophic vaginitis N95.2 Active 5 7753707 Problem Paroxysmal tachycardia I47.9 Active 64934726 Problem Other chronic pain G89.29 Active 8 4924493 Problem Mild intermittent asthma without complication J45. 20 Active 923650271 Problem Obesity (BMI 30.0-34.9) E66.9 Active [id number] Problem High blood pressure I10 Active 01278871 ALLERGIES No Information ENCOUNTERS Encounter Location Date Diagnosis [facility] [place] [address] [facility] [id number] [address] [place] [id number] 08 Nov, 2019 [facility] [place] [address] [facility] [id number] [address] [place] [phone] Nov, [address] [id number] [id number] 26 Oct, 2019 Breast cancer screening Z12.[address] [id number] [address] 08 Oct, 2019 Breast cancer screening Z12. 39 [facility] [place] [address] [id number] [address] [place] [phone] Oct, [facility] [place] [address] [id number] [address] [place] [phone] Oct, [facility] [place] [address] [id number] [address] [place] [phone] September, [facility] [place] [address] [id number] [address] [place] [phone] September, [facility] [place] [address] [id number] [address] [place] [phone] September, Well woman exam with routine gynecological exam Z01.419 and Atrophic vaginitis N95.2 [facility] [place] [address] [id number] [address] [place] [phone] September, Major depressive disorder in partial remission F32.4 ; FRANCIS (generalized anxiety disorder) F41.1 ; Restless leg syndrome G25.81 and Nonadherence to medication Z91.14 [facility] [place] [address] [id number] [address] [place] [phone] September, [facility] [place] [address] [id number] [address] [place] [phone] Aug, [facility] [address] [facility] [id number] [address] [place] [id number] Aug, Dental examination Z01.20 [facility] [address] [id number] [address] [place] [id number] Aug, Dental examination Z01.20 an d Caries K02.9 [facility] [address] [id number] [address] [place] [phone] Aug, [facility] [address] [id number] [address] [place] [phone] Aug, [facility] [address] [id number] [address] [place] [phone] Aug, Other chronic pain G89.29 an d Back muscle spasm M62.830 [facility] [place] [address] [id number] [address] [place] [phone] 07 Aug, 2019 [facility] [place] [address] [id number] [address] [place] [phone] Aug, Major depressive disorder in partial remission F32.4 ; FRANCIS (generalized anxiety disorder) F41.1 ; Restless leg syndrome G25.81 and Nonadherence to medication Z91.14 [facility] [place] [address] [id number] [address] [place] [phone] Aug, [facility] [place] [address] [id number] [address] [place] [id number] Jul, [facility] [place] [address] [id number] [address] [place] [phone] Jul, [facility] [place] [address] [id number] [address] [place] [phone] Jul, Major depressive disorder in partial remission F32.4 ; FRANCIS (generalized anxiety disorder) F41.1 ; Restless leg syndrome G25.81 and High blood pressure I10 [facility] [place] [address] [id number] [address] [place] [phone] 17 Jul, 2019 [facility] [place] [address] [id number] [address] [place] [phone] Jul, [facility] [place] [address] [id number] [address] [place] [phone] Jun, [facility] [place] [address] [id number] [address] [place] [phone] May, [facility] [place] [address] [id number] [address] [place] [phone] Apr, [facility] [place] [address] [id number] [address] [place] [phone] Apr, [facility] [place] [address] [id number] [address] [place] [phone] Mar, [facility] [place] [address] [id number] [address] [place] [address] Mar, Major depressive disorder in partial remission F32.4 ; FRANCIS (generalized anxiety disorder) F41.1 and Restless leg syndrome G25.81 [facility] [place] [address] [id number] [address] [place] [phone] Mar, Obesity (BMI 30.0-34.9) E66. 9 [facility] [place] [address] [id number] [address] [place] [phone] Jan, [facility] [address] [id number] [address] [place] [phone] Jan, Burn T30.0 [facility] [place] [address] [id number] [address] [place] [phone] Dec, [facility] [place] [address] [id number] [address] [place] [phone] Nov, [facility] [place] [address] [id number] [address] [place] [phone] Nov, [facility] [address] [id number] [address] [place] [id number] Nov, Dental examination Z01.20 [facility] [place] [address] [id number] [address] [place] [phone] September, [facility] [address] [id number] [address] [place] [id number] September, Decay, teeth K02.9 and Denta l examination Z01.20 [facility] [address] [id number] [address] [place] [id number] September, Dental examination Z01.20 [facility] [place] [address] [id number] [address] [place] [address] September, FRANCIS (generalized anxiety dis order) F41.1 ; Major depressive disorder in partial remission F32.4 and Restless leg syndrome G25.81 [facility] [place] [address] [phone] Aug, [facility] [place] [address] [phone] Jul, [facility] [place] [address] [place] [id number] [place] [phone] Jul, Encounter to discuss test re sults Z71.2 [facility] [place] [address] [address] Jul, Pelvic pain R10.2 ; Screenin g for breast cancer Z12.31 and Obesity (BMI 30.0-34.9) E66.9 [place] [address] [address] Jul, Mild intermittent asthma wit hout complication J45.20 [place] [address] [id number] Jul, Major depressive disorder in partial remission F32.4 and FRANCIS (generalized anxiety disorder) F41.1 [place] [address] [phone] Jul, [facility] [place] [address] [address] Jun, [place] [address] [address] May, Major depressive disorder in partial remission F32.4 ; FRANCIS (generalized anxiety disorder) F41.1 and Restless leg syndrome G25.81 [place] [address] [phone] Apr, [facility] [place] [address] [place] [id number] [place] [phone] Mar, [facility] [address] [place] [id number] [address] [place] [id number] 21 Sep, 2018 Pain in thoracic spine M54.6 and Other chronic pain G89.29 [facility] [place] [address] [id number] [address] [place] [phone] 14 Jan, 2018 [facility] [place] [address] [id number] [address] [place] [phone] 11 Jan, 2018 Mild episode of recurrent ma saray depressive disorder F33.0 ; FRANCIS (generalized anxiety disorder) F41.1 and Restless leg syndrome G25.81 [facility] [place] [address] [id number] [address] [place] [phone] Dec, [facility] [place] [address] [id number] [address] [place] [phone] Dec, Hospital discharge follow-up Z09 [facility] [place] [address] [id number] [address] [place] [phone] Nov, [facility] [place] [address] [id number] [address] [place] [phone] Nov, [facility] [place] [address] [id number] [address] [place] [phone] September, [facility] [place] [address] [id number] [address] [place] [phone] September, [facility] [place] [address] [id number] [address] [place] [phone] September, Major depressive disorder in partial remission F32.4 ; FRANCIS (generalized anxiety disorder) F41.1 and Restless leg syndrome G25.81 [facility] [place] [address] [id number] [address] [place] [phone] September, [facility] [place] [address] [id number] [address] [place] [phone] Jul, [facility] [place] [address] [id number] [address] [place] [phone] Jul, Dorsalgia, unspecified M54.9 [facility] [place] [address] [id number] [address] [place] [phone] Jul, Mild episode of recurrent ma saray depressive disorder F33.0 and FRANCIS (generalized anxiety disorder) F41.1 [facility] [place] [address] [id number] [address] [place] [phone] May, [facility] [address] [facility] [id number] [address] [place] [phone] May, Dysuria R30.0 and Acute cyst itis with hematuria N30.01 [facility] [place] [address] [id number] [address] [place] [phone] Apr, [place] [address] [facility] [id number] [address] [place] [phone] Apr, Major depressive disorder in partial remission F32.4 and FRANCIS (generalized anxiety disorder) F41.1 [place] [address] [facility] [id number] [address] [place] [phone] Mar, Paroxysmal tachycardia I47.9 [place] [address] [facility] [id number] [address] [place] [id number] Mar, Paroxysmal tachycardia I47.9 and Pain of left lower extremity M79.605 [place] [address] [facility] [id number] [address] [place] [phone] Mar, FRANCIS (generalized anxiety dis order) F41.1 and Major depressive disorder in partial remission F32.4 [place] [address] [facility] [id number] [address] [place] [phone] Jan, [facility] [place] [address] [id number] [address] [place] [phone] Jan, [place] [address] [facility] [id number] [address] [place] [phone] Jan, [facility] [address] [facility] [id number] [address] [place] [phone] Dec, Constipation, unspecified co nstipation type K59.00 [place] [address] [facility] [id number] [address] [place] [phone] Dec, [facility] [place] [address] [id number] [address] [place] [phone] Nov, [facility] [place] [address] [facility] [id number] [address] [place] [phone] Nov, Major depressive disorder in partial remission F32.4 and FRANCIS (generalized anxiety disorder) F41.1 [facility] [address] [facility] [id number] [address] [place] [address] Oct, Abdominal pain R10.9 and Slo w transit constipation K59.01 [place] [address] [facility] [id number] [address] [place] [address] Aug, Major depressive disorder in partial remission F32.4 ; FRANCIS (generalized anxiety disorder) F41.1 ; Conversion disorder (or hysterical neurosis, conversion type) F44.9 ; Dorsalgia, unspecified M54.9 and Long-term use of high-risk medication Z79.899 [place] [address] [facility] [id number] [address] [place] [address] Aug, [place] [address] [facility] [id number] [address] [place] [phone] Jul, Paroxysmal tachycardia I47.9 [place] [address] [facility] [id number] [address] [place] [phone] Jul, Paroxysmal tachycardia I47.9 [place] [address] [facility] [id number] [address] [place] [phone] Jun, [facility] [place] [address] [facility] [id number] [address] [place] [phone] Jun, Major depressive disorder in partial remission F32.4 ; FRANCIS (generalized anxiety disorder) F41.1 and Conversion disorder (or hysterical neurosis, conversion type) F44.9 [facility] [address] [facility] [id number] [address] [place] [address] May, Pelvic pain R10.2 [facility] [address] [id number] [address] [place] [id number] 30 Apr, 2016 Gastroenteritis K52.9 [facility] [address] [id number] [address] [place] [phone] 17 Apr, 2016 Blood in urine R31.9 and Acu te cystitis with hematuria N30.01 [facility] [place] [address] [id number] [address] [place] [phone] Apr, Major depressive disorder in partial remission F32.4 ; FRANCIS (generalized anxiety disorder) F41.1 and Conversion disorder (or hysterical neurosis, conversion type) F44.9 [facility] [place] [address] [id number] [address] [place] [phone] Apr, [facility] [place] [address] [facility] [id number] [address] [place] [phone] Apr, Abnormal mammogram R92.8 [facility] [place] [address] [id number] [address] [place] [phone] Mar, [facility] [place] [address] [id number] [address] [place] [address] Mar, Gastroenteritis K52.9 and Se izure disorder G40.909 [facility] [place] [address] [id number] [address] [place] [phone] Dec, [facility] [address] [id number] [address] [place] [phone] Dec, Other headache syndrome G44. 89 [facility] [place] [address] [id number] [address] [place] [phone] Dec, [facility] [place] [address] [facility] [id number] [address] [place] [phone] Dec, Thoracic disc herniation M51 .24 [facility] [place] [address] [id number] [address] [place] [id number] Dec, [facility] [place] [address] [facility] [id number] [address] [place] [id number] Nov, Major depressive disorder in partial remission F32.4 and FRANCIS (generalized anxiety disorder) F41.1 [facility] [place] [address] [id number] [address] [place] [phone] Nov, [facility] [place] [address] [id number] [address] [place] [address] Nov, Dorsalgia, unspecified M54.9 [facility] [place] [address] [id number] [address] [place] [phone] Oct, [facility] [place] [address] [id number] [address] [place] [phone] September, [facility] [place] [address] [id number] [address] [place] [phone] Aug, [facility] [place] [address] [id number] [address] [place] [phone] Aug, Major depressive disorder in partial remission F32.4 and FRANCIS (generalized anxiety disorder) F41.1 [facility] [place] [address] [id number] [address] [place] [phone] Aug, [facility] [place] [address] [id number] [address] [place] [phone] Jul, Abnormal mammogram R92.8 [facility] [place] [address] [id number] [address] [place] [phone] Jul, [facility] [place] [address] [id number] [address] [place] [phone] Jul, [facility] [place] [address] [id number] [address] [place] [phone] Jul, [facility] [place] [address] [id number] [address] [place] [phone] Jul, [facility] [place] [address] [id number] [address] [place] [id number] Jul, [facility] [place] [address] [id number] [address] [place] [phone] Jul, [facility] [place] [address] [id number] [address] [place] [id number] Jun, Major depressive disorder in partial remission F32.4 and FRANCIS (generalized anxiety disorder) F41.1 [facility] [place] [address] [id number] [address] [place] [phone] Jun, [facility] [place] [address] [id number] [address] [place] [phone] May, [facility] [place] [address] [id number] [address] [place] [phone] Apr, [facility] [place] [address] [id number] [address] [place] [phone] Mar, Major depressive disorder, r ecurrent episode, moderate F33.1 ; PTSD (post-traumatic stress disorder) F43.10 and FRANCIS (generalized anxiety disorder) F41.1 [facility] [place] [address] [id number] [address] [place] [phone] Mar, [facility] [place] [address] [id number] [address] [place] [phone] Mar, [facility], [place] [address] [id number] [address] [place] [id number] Mar, [facility], [place] [address] [id number] [address] [place] [phone] Mar, [facility], [place] [address] [id number] [address] [place] [phone] 23 Jan, 2015 [facility], [place] [address] [id number] [address] [place] [phone] 15 Jan, 2015 [facility], [place] [address] [id number] [address] [place] [phone] 15 Jan, 2015 [facility] [place] [address] [facility] [id number] [address] [place] [phone] 14 Jan, 2015 Thoracic disc herniation 722 .11 [facility], [place] [address] [id number] [address] [place] [phone] Dec, [facility] [address] [id number] [address] [place] [phone] Dec, [facility] [address] [id number] [address] [place] [phone] Dec, [facility] [address] [id number] [address] [place] [phone] Nov, [facility] [address] [id number] [address] [place] [phone] Nov, Generalized anxiety disorder 300.02 ; Posttraumatic stress disorder 309.81 and Major depressive disorder, recurrent episode, moderate 296.32 [facility] [address] [id number] [address] [place] [phone] Nov, [facility] [address] [id number] [address] [place] [phone] Nov, [facility] [address] [id number] [address] [place] [phone] Oct, [facility] [address] [id number] [address] [place] [phone] Oct, [facility] [place] [address] [id number] [address] [place] [phone] Oct, [facility] [address] [id number] [address] [place] [phone] September, [facility] [address] [id number] [address] [place] [phone] September, [facility] [address] [id number] [address] [place] [phone] Aug, [facility] [address] [id number] [address] [place] [id number] Aug, [facility] [address] [id number] [address] [place] [phone] Jul, [facility] [address] [id number] [address] [place] [address], [place] [phone] Jul, [facility] [address] [id number] [address] [place] [address], [place] [phone] Jul, [facility] [address] [id number] [address] [place] [address], [place] [phone] 17 Jul, 2014 [facility] [address] [id number] [address] [place] [address], [place] [phone] Jul, [facility] [address] [id number] [address] [place] [address], [place] [address] Jul, [facility] [address] [id number] [address] [place] [address], [place] [address] Jul, [facility] [address] [id number] [address] [place] [address], [place] [address] Jul, [facility] [address] [id number] [address] [place] [address], [place] [address] Jul, [facility] [address] [id number] [address] [place] [address], [place] [address] Jul, [facility] [address] [id number] [address] [place] [address], [place] [address] Jun, [facility] [address] [id number] [address] [place] [address], [place] [address] Jun, [facility] [address] [id number] [address] [place] [address], [place] [address] Jun, [facility] [address] [id number] [address] [place] [address], [place] [address] May, [facility] [address] [id number] [address] [place] [address], [place] [address] Apr, [facility] [address] [id number] [address] [place] [address], [place] [address] Apr, [facility] [address] [id number] [address] [place] [address], [place] [address] Apr, [facility] [address] [id number] [address] [place] [address], [place] [address] Apr, [facility] [address] [id number] [address] [place] [address], [place] [address] Apr, [facility] [address] [id number] [address] [place] [address], [place] [address] Apr, [facility] [address] [id number] [address] [place] [address], [place] [address] Apr, [facility] [address] [id number] [address] [place] [address], [place] [address] Apr, [facility] [address] [id number] [address] [place] [address], [place] [address] Mar, [facility] [address] [id number] [address] [place] [address], [place] [address] Mar, [facility] [address] [id number] [address] [place] [address], [place] [address] Mar, [facility] [address] [id number] [address] [place] [address], [place] [address] Mar, [facility] [address] [id number] [address] [place] [address], [place] [address] Mar, [facility] [address] [id number] [address] [place] [address], [place] [address] Mar, [facility] [address] [id number] [address] [place] [address], [place] [address] Mar, [facility] [address] [id number] [address] [place] [address], [place] [address] Mar, [facility] [address] [id number] [address] [place] [address], [place] [address] Mar, [facility] [address] [id number] [address] [place] [address], [place] [address] Mar, [facility] [address] [id number] [address] [place] [address], [place] [address] Mar, 2013 [facility] [address] [id number] [address] [place] [address], [place] [address] Mar, [facility] [address] [id number] [address] [place] [address], [place] [address] 14 Mar, 2014 [facility] [address] [id number] [address] [place] [address], [place] [address] Mar, 2013 [facility] [address] [id number] [address] [place] [address], [place] [address] Mar, [facility] [address] [id number] [address] [place] [address], [place] [address] Mar, 2013 [facility] [address] [id number] [address] [place] [address], [place] [address] Mar, 2013 [facility] [address] [id number] [address] [place] [address], [place] [address] 19 Sep, 2013 [facility] [address] [id number] [address] [place] [address], [place] [address] 19 Sep, 2013 [facility] [address] [id number] [address] [place] [address], [place] [address] 09 Sep, 2013 [facility] [address] [id number] [address] [place] [address], [place] [address] 09 Sep, 2013 [facility] [address] [id number] [address] [place] [address], [place] [address] 05 Sep, 2013 [facility] [address] [id number] [address] [place] [address], [place] [address] 05 Sep, 2013 [facility] [address] [id number] [address] [place] [address], [place] [address] 05 Sep, 2013 [facility] [address] [id number] [address] [place] [address], [place] [address] 05 Sep, 2013 [facility] [address] [id number] [address] [place] [address], [place] [address] Jan, [facility] [address] [id number] [address] [place] [address], [place] [address] Jan, [facility] [address] [id number] [address] [place] [address], [place] [address] Jan, [facility] [address] [id number] [address] [place] [address], [place] [address] Jan, [facility] [address] [id number] [address] [place] [address], [place] [address] Jan, [facility] [address] [id number] [address] [place] [address], [place] [address] Dec, [facility] [address] [id number] [address] [place] [address], [place] [address] Dec, [facility] [address] [id number] [address] [place] [address], [place] [address] Dec, [facility] [address] [id number] [address] [place] [address], [place] [address] Dec, [facility] [address] [id number] [address] [place] [address], [place] [address] Dec, [facility] [address] [id number] [address] [place] [address], [place] [address] Dec, [facility] [address] [place] [id number] Dec, [facility] [address] [place] [id number] Dec, [facility] [address] [id number] [address] [place] [address], [place] [address] Dec, [facility] [address] [id number] [address] [place] [address], [place] [address] Dec, [facility] [address] [id number] [address] [place] [address], [place] [address] Dec, [facility] [address] [id number] [address] [place] [address], [place] [address] Dec, [facility] [address] [id number] [facility] [place] [address] Nov, [facility] [address] [id number] [facility] [place] [address] Nov, [facility] [address] [id number] [facility] [place] [address] Nov, [facility] [address] [id number] [address] [place] [address], [place] [address] Nov, [facility] [address] [id number] [address] [place] [address], [place] [address] Nov, [facility] [address] [id number] [address] [place] [address], [place] [address] Nov, [facility] [address] [id number] [address] [place] [address], [place] [address] Nov, [facility] [address] [id number] [address] [place] [address], [place] [address] Nov, [facility] [address] [id number] [address] [place] [address], [place] [address] Nov, [facility] [address] [id number] [address] [place] [address], [place] [address] Nov, [facility] [address] [id number] [address] [place] [address], [place] [address] Nov, [facility] [address] [id number] [address] [place] [address], [place] [address] Nov, [facility] [address] [id number] [address] [place] [address], [place] [address] Nov, [facility] [address] [id number] [address] [place] [address], [place] [address] Oct, [facility] [address] [id number] [address] [place] [address], [place] [address] Oct, [facility] [address] [id number] [facility] [place] [address] Oct, [facility] [address] [id number] [address] [place] [address], [place] [address] Oct, [facility] [address] [id number] [address] [place] [address], [place] [address] Oct, [facility] [address] [id number] [address] [place] [address], [place] [address] Oct, [facility] [address] [id number] [address] [place] [address], [place] [address] Oct, [facility] [address] [id number] [address] [place] [address], [place] [address] Oct, [facility] [address] [id number] [address] [place] [address], [place] [address] Oct, [facility] [address] [id number] [address] [place] [address], [place] [address] Oct, [facility] [address] [id number] [address] [place] [address], [place] [address] Oct, [facility] [address] [id number] [address] [place] [address], [place] [address] Oct, [facility] [address] [id number] [address] [place] [address], [place] [address] September, [facility] [address] [id number] [address] [place] [address], [place] [address] September, [facility] [address] [id number] [address] [place] [address], [place] [address] September, [facility] [address] [id number] [address] [place] [address], [place] [address] September, [facility] [address] [id number] [address] [place] [address], [place] [address] Aug, [facility] [address] [id number] [address] [place] [address], [place] [address] Aug, [facility] [address] [id number] [facility] [place] [address] Aug, [facility] [address] [id number] [address] [place] [address], [place] [address] Aug, [facility] [address] [id number] [address] [place] [address], [place] [address] Aug, [facility] [address] [id number] [address] [place] [address], [place] [address] Aug, [facility] [address] [id number] [address] [place] [address], [place] [address] Aug, [facility] [address] [id number] [address] [place] [address], [place] [address] Jul, [facility] [address] [id number] [address] [place] [address], [place] [address] Jul, [facility] [address] [id number] [address] [place] [address], [place] [address] Jul, [facility] [address] [id number] [address] [place] [address], [place] [address] Jul, [facility] [address] [id number] [address] [place] [address], [place] [address] Jul, [facility] [address] [id number] [address] [place] [address], [place] [address] Jul, [facility] [address] [id number] [address] [place] [address], [place] [address] Jul, [facility] [address] [id number] [address] [place] [address], [place] [address] Jul, [facility] [address] [id number] [address] [place] [address], [place] [address] Jul, [facility] [address] [id number] [address] [place] [address], [place] [address] Jul, [facility] [address] [id number] [address] [place] [address], [place] [address] 18 Jul, 2013 [facility] [address] [id number] [address] [place] [address], [place] [address] 18 Jul, 2013 [facility] [address] [id number] [address] [place] [address], [place] [address] 14 Jul, 2013 [facility] [address] [id number] [address] [place] [address], [place] [address] 14 Jul, 2013 [facility] [address] [id number] [address] [place] [address], [place] [address] 11 Jul, 2013 [facility] [address] [id number] [address] [place] [address], [place] [address] Jul, [facility] [address] [id number] [address] [place] [address], [place] [address] Jul, [facility] [address] [id number] [address] [place] [address], [place] [address] Jul, [facility] [address] [id number] [address] [place] [address], [place] [address] Jun, [facility] [address] [id number] [address] [place] [address], [place] [address] 31 Jun, 2013 [facility] [address] [id number] [address] [place] [address], [place] [address] 15 Jun, 2013 [facility] [address] [id number] [address] [place] [address], [place] [address] 15 Jun, 2013 [facility] [address] [id number] [address] [place] [address], [place] [address] 14 Jun, 2013 [facility] [address] [id number] [address] [place] [address], [place] [address] 14 Jun, 2013 [facility] [address] [id number] [address] [place] [address], [place] [address] 14 Jun, 2013 [facility] [address] [id number] [address] [place] [address], [place] [address] 14 Jun, 2013 [facility] [address] [id number] [address] [place] [address], [place] [address] 14 Jun, 2013 [facility] [address] [id number] [address] [place] [address], [place] [address] 14 Jun, 2013 [facility] [address] [id number] [address] [place] [address], [place] [address] 27 May, 2013 [facility] [address] [id number] [address] [place] [address], [place] [address] 27 May, 2013 [facility] [address] [id number] [address] [place] [address], [place] [address] 26 May, 2013 [facility] [address] [id number] [address] [place] [address], [place] [address] 19 May, 2013 [facility] [address] [id number] [address] [place] [address], [place] [address] 19 May, 2013 [facility] [address] [id number] [address] [place] [address], [place] [address] 16 May, 2013 [facility] [address] [id number] [address] [place] [address], [place] [address] 16 May, 2013 [facility] [address] [id number] [address] [place] [address], [place] [address] 16 May, 2013 [facility] [address] [id number] [address] [place] [address], [place] [address] 16 May, 2013 [facility] [address] [id number] [address] [place] [address], [place] [address] 13 May, 2013 [facility] [address] [id number] [address] [place] [address], [place] [address] 13 May, 2013 [facility] [address] [id number] [address] [place] [address], [place] [address] 11 May, 2013 [facility] [address] [id number] [address] [place] [address], [place] [address] 20 Apr, 2013 [facility] [address] [id number] [address] [place] [address] Apr, [facility] [address] [id number] [address] [place] [address], [place] [address] 18 Apr, 2013 [facility] [address] [id number] [address] [place] [address] Apr, [facility] [address] [id number] [address] [place] [address] Apr, [facility] [address] [id number] [address] [place] [address] 08 Apr, 2013 [facility] [address] [id number] [address] [place] [address], [place] [address] 08 Apr, 2013 [facility] [address] [id number] [address] [place] [address] Apr, [facility] [address] [id number] [address] [place] [address] Apr, [facility] [address] [id number] [address] [place] [address] Apr, [facility] [address] [id number] [address] [place] [address] Apr, [facility] [address] [id number] [address] [place] [address] Mar, [facility] [address] [id number] [address] [place] [address] Mar, [facility] [address] [id number] [address] [place] [address] Mar, [facility] [address] [id number] [address] [place] [address] Mar, [facility] [address] [id number] [address] [place] [address] Mar, [facility] [address] [id number] [address] [place] [address] Mar, [facility] [address] [id number] [address] [place] [address], [place] [address] Mar, [facility] [address] [id number] [address] [place] [address], [place] [address] Mar, [facility] [address] [id number] [address] [place] [address], [place] [address] Mar, [facility] [address] [id number] [address] [place] [address], [place] [address] Mar, [facility] [address] [id number] [address] [place] [address], [place] [address] 15 Mar, 2013 [facility] [address] [id number] [address] [place] [address], [place] [address] Mar, [facility] [address] [id number] [address] [place] [address], [place] [address] 30 Jan, 2013 [facility] [address] [id number] [address] [place] [address], [place] [address] Jan, [facility] [address] [id number] [address] [place] [address], [place] [address] 20 Jan, 2013 [facility] [address] [id number] [address] [place] [address], [place] [address] Jan, [facility] [address] [id number] [address] [place] [address], [place] [address] Dec, [facility] [address] [id number] [address] [place] [address], [place] [address] Dec, [facility] [address] [id number] [address] [place] [address], [place] [id number] Dec, [facility] [address] [id number] [address] [place] [address], [place] [address] Dec, [facility] [address] [id number] [address] [place] [address], [place] [address] Dec, [facility] [address] [id number] [address] [place] [address], [place] [address] Dec, [facility] [address] [id number] [address] [place] [address], [place] [address] Dec, [facility] [address] [id number] [address] [place] [address], [place] [address] Dec, [facility] [address] [id number] [address] [place] [address], [place] [address] Dec, [facility] [address] [id number] [address] [place] [address], [place] [address] Nov, [facility] [address] [id number] [address] [place] [address], [place] [address] Nov, [facility] [address] [id number] [address] [place] [address], [place] [address] Nov, [facility] [address] [id number] [address] [place] [address], [place] [address] Nov, [facility] [address] [id number] [address] [place] [address], [place] [address] Nov, [facility] [address] [id number] [address] [place] [address], [place] [address] Nov, [facility] [address] [id number] [address] [place] [address], [place] [address] Nov, [facility] [address] [id number] [address] [place] [address], [place] [address] Nov, [facility] [address] [id number] [address] [place] [address], [place] [address] Oct, [facility] [address] [id number] [address] [place] [address], [place] [address] Oct, [facility] [address] [id number] [address] [place] [address], [place] [address] Oct, [facility] [address] [id number] [address] [place] [address], [place] [address] Oct, [facility] [address] [id number] [address] [place] [address], [place] [address] Oct, [facility] [address] [id number] [address] [place] [address], [place] [address] 21 Oct, 2012 [facility] [address] [id number] [address] [place] [address], [place] [address] 20 Oct, 2012 [facility] [address] [id number] [address] [place] [address], [place] [address] 20 Oct, 2012 [facility] [address] [id number] [address] [place] [address], [place] [address] 19 Oct, 2012 [facility] [address] [id number] [address] [place] [address], [place] [address] 18 Oct, 2012 [facility] [address] [id number] [address] [place] [address], [place] [address] 17 Oct, 2012 [facility] [address] [id number] [address] [place] [address], [place] [address] 14 Oct, 2012 [facility] [address] [id number] [address] [place] [address], [place] [address] 07 Oct, 2012 [facility] [address] [id number] [address] [place] [address], [place] [address] 30 Sep, 2012 [facility] [address] [id number] [address] [place] [address], [place] [address] September, [facility] [address] [id number] [address] [place] [address], [place] [address] 15 Sep, 2012 [facility] [address] [id number] [address] [place] [address], [place] [id number] 25 Aug, 2012 [facility] [address] [id number] [address] [place] [address], [place] [address] 24 Aug, 2012 [facility] [address] [id number] [address] [place] [address], [place] [address] 18 Aug, 2012 [facility] [address] [id number] [address] [place] [address], [place] [address] 18 Aug, 2012 [facility] [address] [id number] [address] [place] [address], [place] [address] 18 Aug, 2012 [facility] [address] [id number] [address] [place] [address], [place] [address] Aug, [facility] [address] [id number] [address] [place] [address], [place] [address] Aug, [facility] [address] [id number] [address] [place] [address], [place] [address] Jul, [facility] [address] [id number] [address] [place] [address], [place] [id number] Jul, [facility] [address] [id number] [address] [place] [address], [place] [address] Jul, [facility] [address] [id number] [address] [place] [address], [place] [address] Jul, [facility] [address] [id number] [address] [place] [address], [place] [address] Jul, [facility] [address] [id number] [address] [place] [address], [place] [address] Jul, [facility] [address] [id number] [address] [place] [address], [place] [address] Jul, [facility] [address] [id number] [address] [place] [address], [place] [address] Jul, [facility] [address] [id number] [address] [place] [address], [place] [address] Jul, [facility] [address] [id number] [address] [place] [address], [place] [address] Jul, [facility] [address] [id number] [address] [place] [address], [place] [address] 11 Jul, 2012 [facility] [address] [id number] [address] [place] [address], [place] [address] 06 Jul, 2012 [facility] [address] [id number] [address] [place] [address] [place] [address] Jul, [facility] [address] [id number] [address] [place] [address], [place] [address] Jun, [facility] [address] [id number] [address] [place] [address], [place] [address] Jun, [facility] [address] [id number] [address] [place] [address], [place] [address] Jun, [facility] [address] [id number] [address] [place] [address], [place] [address] 17 Jun, 2012 [facility] [address] [id number] [address] [place] [address], [place] [address] 15 Jun, 2012 [facility] [address] [id number] [address] [place] [address], [place] [address] Jun, [facility] [address] [id number] [address] [place] [address], [place] [address] Jun, [facility] [address] [id number] [address] [place] [address], [place] [address] May, [facility] [address] [id number] [address] [place] [address], [place] [address] May, [facility] [address] [id number] [address] [place] [address], [place] [address] May, [facility] [address] [id number] [address] [place] [address], [place] [address] May, [facility] [address] [id number] [address] [place] [address], [place] [address] May, [facility] [address] [id number] [address] [place] [address], [place] [address] May, [facility] [address] [id number] [address] [place] [address], [place] [address] May, [facility] [address] [id number] [address] [place] [address], [place] [address] May, [facility] [address] [id number] [address] [place] [address], [place] [address] May, [facility] [address] [id number] [address] [place] [address], [place] [address] May, [facility] [address] [id number] [address] [place] [address], [place] [address] Apr, [facility] [address] [id number] [address] [place] [address], [place] [address] Apr, [facility] [address] [id number] [address] [place] [address], [place] [address] Apr, [facility] [address] [id number] [address] [place] [address], [place] [address] Apr, [facility] [address] [id number] [address] [place] [address], [place] [address] Apr, [facility] [address] [id number] [address] [place] [address], [place] [address] Apr, [facility] [address] [id number] [address] [place] [address], [place] [address] Apr, [facility] [address] [id number] [address] [place] [address], [place] [address] Apr, [facility] [address] [id number] [address] [place] [address], [place] [address] Apr, [facility] [address] [id number] [address] [place] [address], [place] [address] Apr, [facility] [address] [id number] [address] [place] [address], [place] [address] Apr, [facility] [address] [id number] [address] [place] [address], [place] [address] Apr, [facility] [address] [id number] [address] [place] [address], [place] [address] Mar, [facility] [address] [id number] [address] [place] [address], [place] [address] Mar, 2011 [facility] [address] [id number] [address] [place] [address], [place] [address] 30 Mar, 2011 [facility] [address] [id number] [address] [place] [address] Mar, 2011 [facility] [address] [id number] [address] [place] [address] Mar, 2011 [facility] [address] [id number] [address] [place] [address] Mar, 2011 [facility] [address] [id number] [address] [place] [address], [place] [address] Mar, 2011 [facility] [address] [id number] [address] [place] [address] Mar, 2011 [facility] [address] [id number] [address] [place] [address] Mar, 2011 [facility] [address] [id number] [address] [place] [address] Mar, [facility] [address] [id number] [address] [place] [address] Mar, [facility] [address] [id number] [address] [place] [address] Mar, [facility] [address] [id number] [address] [place] [address] Mar, [facility] [address] [id number] [address] [place] [address] Mar, [facility] [address] [id number] [address] [place] [address], [place] [address] Mar, [facility] [address] [id number] [address] [place] [id number] Mar, [facility] [address] [id number] [address] [place] [id number] Jan, [facility] [address] [id number] [address] [place] [address], [place] [address] 24 Sep, 2011 [facility] [address] [id number] [address] [place] [address], [place] [address] 22 Sep, 2011 [facility] [address] [id number] [address] [place] [address], [place] [address] 22 Jan, 2011 [facility] [address] [id number] [address] [place] [address], [place] [address] 21 Jan, 2011 [facility] [address] [id number] [address] [place] [address], [place] [address] 18 Sep, 2011 [facility] [address] [id number] [address] [place] [address], [place] [address] 14 Jan, 2011 [facility] [address] [id number] [address] [place] [address], [place] [address] 07 Jan, 2012 [facility] [address] [id number] [address] [place] [address], [place] [address] 15 Dec, 2011 [facility] [address] [id number] [address] [place] [address], [place] [address] 10 Dec, 2011 [facility] [address] [id number] [address] [place] [address], [place] [address] 09 Dec, 2011 [facility] [address] [id number] [address] [place] [address], [place] [address] 08 Dec, 2011 [facility] [address] [id number] [address] [place] [address], [place] [address] Dec, [facility] [address] [id number] [address] [place] [address], [place] [address] Dec, [facility] [address] [id number] [address] [place] [address], [place] [address] Dec, [facility] [address] [id number] [address] [place] [address], [place] [address] Nov, [facility] [address] [id number] [address] [place] [address], [place] [address] Oct, [facility] [address] [id number] [address] [place] [address], [place] [address] 05 Aug, 2011 [facility] [address] [id number] [address] [place] [address], [place] [address] 22 Jul, 2011 [facility] [address] [id number] [address] [place] [address], [place] [address] 19 Jul, 2011 [facility] [address] [id number] [address] [place] [address], [place] [address] 16 Jul, 2011 [facility] [address] [id number] [address] [place] [address], [place] [address] 14 Jul, 2011 [facility] [address] [id number] [address] [place] [address], [place] [address] 07 Jul, 2011 [facility] [address] [id number] [address] [place] [address], [place] [address] 02 Jul, 2011 [facility] [address] [id number] [address] [place] [address], [place] [address] 21 Jul, 2011 [facility] [address] [id number] [address] [place] [address], [place] [address] 15 Jul, 2011 [facility] [address] [id number] [address] [place] [address], [place] [address] 13 Jul, 2011 [facility] [address] [id number] [address] [place] [address], [place] [address] 03 Jul, 2011 [facility] [address] [id number] [address] [place] [address], [place] [address] 02 Jul, 2011 [facility] [address] [id number] [address] [place] [address], [place] [address] 24 Jun, 2011 [facility] [address] [id number] [address] [place] [address], [place] [address] 24 Jun, 2011 [facility] [address] [id number] [address] [place] [address], [place] [address] 13 Jun, 2011 [facility] [address] [id number] [address] [place] [address], [place] [address] 11 Jun, 2011 [facility] [address] [id number] [address] [place] [address], [place] [address] Jun, [facility] [address] [id number] [address] [place] [address], [place] [address] Jun, [facility] [address] [id number] [address] [place] [address], [place] [address] Jun, [facility] [address] [id number] [address] [place] [address], [place] [address] May, [facility] [address] [id number] [address] [place] [address], [place] [address] May, [facility] [address] [id number] [address] [place] [address], [place] [address] May, [facility] [address] [id number] [address] [place] [address], [place] [address] May, [facility] [address] [id number] [address] [place] [address], [place] [address] 14 May, 2011 [facility] [address] [id number] [address] [place] [address], [place] [address] May, [facility] [address] [id number] [address] [place] [address], [place] [address] May, [facility] [address] [id number] [address] [place] [address], [place] [address] May, [facility] [address] [id number] [address] [place] [address], [place] [address] May, [facility] [address] [id number] [address] [place] [address], [place] [address] May, [facility] [address] [id number] [address] [place] [address], [place] [address] 15 Apr, 2011 [facility] [address] [id number] [address] [place] [address], [place] [address] 15 Apr, 2011 [facility] [address] [id number] [address] [place] [id number] Apr, [facility] [address] [id number] [address] [place] [address] Apr, [facility] [place] [address] [id number] [address] [place] [address] Mar, [facility] [place] [address] [facility] [id number] [address] [place] [id number] Mar, [facility] [place] [address] [id number] [address] [place] [address] Mar, [facility] [place] [address] [facility] [id number] [address] [place] [address] Mar, IMMUNIZATIONS No Known Immunizations SOCIAL HISTORY Never Assessed REASON FOR VISIT PLAN OF CARE VITAL SIGNS Height 61 in 2013-01-06 Weight 167 lbs 2013-01-06 Temperature 98.1 degrees Fahrenheit 2013-01-06 Heart Rate 88 bpm 2013-01-06 Respiratory Rate 22 2013-01-06 Blood pressure systolic 124 mmHg 2013-01-06 Blood pressure diastolic 88 mmHg 2013-01-06 MEDICATIONS Unknown Medications RESULTS No Results PROCEDURES [...]
--- OUTSIDE RECORDS SUMMARY | 2020-01-03 17:50 | XMS REPORT ---
Author Author Pattie DAVENPORT Organization [facility] Address [address] [place] [address] Care Team Providers Care Stonecutter Hand Name Role Phone ORLY DAVENPORT Unavailable PROBLEMS Type Condition ICD9-CM Code [id number] Code Onset Dates Condition S tatus SNOMED Code Problem FRANCIS (generalized anxiety disorder) F41.1 Active 82664602 Problem Thoracic disc herniation M51.24 Activ e 795132321 Problem Major depressive disorder in partial remission F32 .4 Active 89594760 Problem Seizure disorder G40.909 Active 128 475171 Problem Conversion disorder (or hysterical neurosis, conversion ty pe) F44.9 Active 79910275 Problem Constipation, unspecified constipation type K59.00 Active 19937882 Problem Mild episode of recurrent major depressive disorder F33.0 Active 620076824 Problem Restless leg syndrome G25.81 Active 79356578 Problem Nonadherence to medication Z91.14 Act vivian 577772550 Problem Slow transit constipation K59.01 Acti ve 25549192 Problem Atrophic vaginitis N95.2 Active 5 4006342 Problem Paroxysmal tachycardia I47.9 Active 07770756 Problem Other chronic pain G89.29 Active 8 6920337 Problem Mild intermittent asthma without complication J45. 20 Active 872574521 Problem Obesity (BMI 30.0-34.9) E66.9 Active [id number] Problem High blood pressure I10 Active 68042867 ALLERGIES No Information ENCOUNTERS Encounter Location Date Diagnosis [facility] [address] [facility] [id number] [address] [place] [phone] Nov, [facility] [address] [facility] [id number] [address] [place] [phone] Nov, [id number] [place] [address] [id number] Oct, Breast cancer screening Z12.[address] [id number] [address] 08 Oct, 2019 Breast cancer screening Z12. 39 [facility] [address] [id number] [address] [place] [phone] Oct, [facility] [address] [id number] [address] [place] [phone] Oct, [facility] [address] [id number] [address] [place] [phone] September, [facility] [address] [id number] [address] [place] [phone] September, [facility] [address] [id number] [address] [place] [phone] September, Well woman exam with routine gynecological exam Z01.419 and Atrophic vaginitis N95.2 [facility] [address] [id number] [address] [place] [phone] September, Major depressive disorder in partial remission F32.4 ; FRANCIS (generalized anxiety disorder) F41.1 ; Restless leg syndrome G25.81 and Nonadherence to medication Z91.14 [facility] [address] [id number] [address] [place] [phone] September, [facility] [address] [id number] [address] [place] [phone] Aug, [facility] [address] [id number] [address] [place] [address] [id number] Aug, Dental examination Z01.20 [facility] [address] [id number] [address] [place] [address] [id number] Aug, Dental examination Z01.20 an d Caries K02.9 [facility] [address] [id number] [address] [place] [phone] Aug, [facility] [address] [id number] [address] [place] [phone] Aug, [facility] [address] [id number] [address] [place] [phone] Aug, Other chronic pain G89.29 an d Back muscle spasm M62.830 [facility] [address] [id number] [address] [place] [phone] 07 Aug, 2019 [facility] [address] [id number] [address] [place] [phone] Aug, Major depressive disorder in partial remission F32.4 ; RFANCIS (generalized anxiety disorder) F41.1 ; Restless leg syndrome G25.81 and Nonadherence to medication Z91.14 [facility] [address] [id number] [address] [place] [phone] Aug, [facility] [address] [id number] [address] [place] [id number] Jul, [facility] [address] [facility] [id number] [address] [place] [phone] Jul, [facility] [address] [id number] [address] [place] [phone] Jul, Major depressive disorder in partial remission F32.4 ; FRANCIS (generalized anxiety disorder) F41.1 ; Restless leg syndrome G25.81 and High blood pressure I10 [facility] [address] [id number] [address] [place] [phone] Jul, [facility] [address] [id number] [address] [place] [phone] Jul, [facility] [address] [id number] [address] [place] [phone] Jun, [facility] [address] [id number] [address] [place] [phone] May, [facility] [address] [id number] [address] [place] [phone] Apr, [facility] [address] [id number] [address] [place] [phone] Apr, [facility] [address] [id number] [address] [place] [phone] Mar, [facility] [address] [facility] [id number] [address] [place] [phone] Mar, Major depressive disorder in partial remission F32.4 ; FRANCIS (generalized anxiety disorder) F41.1 and Restless leg syndrome G25.81 [facility] [address] [id number] [address] [place] [phone] Mar, Obesity (BMI 30.0-34.9) E66. 9 [facility] [address] [id number] [address] [place] [phone] Jan, [facility] [address] [facility] [id number] [address] [place] [phone] Jan, Burn T30.0 [facility] [address] [id number] [address] [place] [phone] Dec, [facility] [address] [id number] [address] [place] [phone] Nov, [facility] [address] [id number] [address] [place] [phone] Nov, [facility] [address] [id number] [address] [place] [address] [id number] Nov, Dental examination Z01.20 [facility] [address] [id number] [address] [place] [phone] September, [facility] [address] [id number] [address] [place] [address] [id number] September, Decay, teeth K02.9 and Denta l examination Z01.20 [facility] [address] [id number] [address] [place] [address] [id number] September, Dental examination Z01.20 [facility] [address] [id number] [address] [place] [phone] September, FRANCIS (generalized anxiety dis order) F41.1 ; Major depressive disorder in partial remission F32.4 and Restless leg syndrome G25.81 [facility] [address] [facility] [id number] [address] [place] [phone] Aug, [facility] [address] [facility] [id number] [address] [place] [phone] Jul, [facility] [address] [place] [id number] [address] [place] [phone] Jul, Encounter to discuss test re sults Z71.2 [facility] [address] [facility] [id number] [address] [place] [phone] Jul, Pelvic pain R10.2 ; Screenin g for breast cancer Z12.31 and Obesity (BMI 30.0-34.9) E66.9 [facility] [address] [place] [id number] [address] [place] [phone] Jul, Mild intermittent asthma wit hout complication J45.20 [facility] [address] [facility] [id number] [address] [place] [phone] Jul, Major depressive disorder in partial remission F32.4 and FRANCIS (generalized anxiety disorder) F41.1 [facility] [address] [facility] [id number] [address] [place] [phone] Jul, [facility] [address] [place] [id number] [address] [place] [phone] Jun, [facility] [address] [place] [id number] [address] [place] [phone] May, Major depressive disorder in partial remission F32.4 ; FRANCIS (generalized anxiety disorder) F41.1 and Restless leg syndrome G25.81 [facility] [address] [facility] [id number] [address] [place] [phone] Apr, [facility] [address] [facility] [id number] [address] [place] [phone] Mar, [facility] [address] [id number] [address] [place] [phone] 21 Jan, 2018 Pain in thoracic spine M54.6 and Other chronic pain G89.29 [facility] [address] [id number] [address] [place] [phone] 14 Jan, 2018 [facility] [address] [id number] [address] [place] [id number] 11 Jan, 2018 Mild episode of recurrent ma saray depressive disorder F33.0 ; FRANCIS (generalized anxiety disorder) F41.1 and Restless leg syndrome G25.81 [facility] [address] [id number] [address] [place] [phone] Dec, [facility] [address] [id number] [address] [place] [phone] Dec, Hospital discharge follow-up Z09 [facility] [address] [id number] [address] [place] [phone] Nov, [facility] [address] [id number] [address] [place] [phone] Nov, [facility] [address] [id number] [address] [place] [phone] September, [facility] [address] [id number] [address] [place] [phone] September, [facility] [address] [id number] [address] [place] [phone] September, Major depressive disorder in partial remission F32.4 ; FRANCIS (generalized anxiety disorder) F41.1 and Restless leg syndrome G25.81 [facility] [address] [id number] [address] [place] [phone] September, [facility] [address] [id number] [address] [place] [phone] Jul, [facility] [address] [id number] [address] [place] [phone] Jul, Dorsalgia, unspecified M54.9 [facility] [address] [id number] [address] [place] [phone] Jul, Mild episode of recurrent ma saray depressive disorder F33.0 and FRANCIS (generalized anxiety disorder) F41.1 [facility] [address] [id number] [address] [place] [phone] May, [facility] [address] [id number] [address] [place] [phone] May, Dysuria R30.0 and Acute cyst itis with hematuria N30.01 [facility] [address] [id number] [address] [place] [phone] Apr, [place] [address] [id number] [address] [place] [phone] Apr, Major depressive disorder in partial remission F32.4 and FRANCIS (generalized anxiety disorder) F41.1 [place] [address] [id number] [address] [place] [phone] Mar, Paroxysmal tachycardia I47.9 [place] [address] [id number] [address] [place] [phone] Mar, Paroxysmal tachycardia I47.9 and Pain of left lower extremity M79.605 [facility] [address] [id number] [address] [place] [phone] Mar, FRANCIS (generalized anxiety dis order) F41.1 and Major depressive disorder in partial remission F32.4 [facility] [address] [id number] [address] [place] [phone] Jan, [facility] [address] [id number] [address] [place] [phone] Jan, [facility] [address] [id number] [address] [place] [phone] Jan, [facility] [address] [id number] [address] [place] [phone] Dec, Constipation, unspecified co nstipation type K59.00 [facility] [address] [id number] [address] [place] [phone] Dec, [facility] [address] [id number] [address] [place] [id number] Nov, [facility] [address] [facility] [id number] [address] [place] [phone] Nov, Major depressive disorder in partial remission F32.4 and FRANCIS (generalized anxiety disorder) F41.1 [facility] [address] [id number] [address] [place] [phone] Oct, Abdominal pain R10.9 and Slo w transit constipation K59.01 [place] [address] [id number] [address] [place] [phone] Aug, Major depressive disorder in partial remission F32.4 ; FRANCIS (generalized anxiety disorder) F41.1 ; Conversion disorder (or hysterical neurosis, conversion type) F44.9 ; Dorsalgia, unspecified M54.9 and Long-term use of high-risk medication Z79.899 [place] [address] [id number] [address] [place] [phone] Aug, [facility] [address] [id number] [address] [place] [phone] Jul, Paroxysmal tachycardia I47.9 [place] [address] [id number] [address] [place] [phone] Jul, Paroxysmal tachycardia I47.9 [facility] [address] [id number] [address] [place] [phone] Jun, [facility] [address] [facility] [id number] [address] [place] [phone] Jun, Major depressive disorder in partial remission F32.4 ; FRANCIS (generalized anxiety disorder) F41.1 and Conversion disorder (or hysterical neurosis, conversion type) F44.9 [facility] [address] [facility] [id number] [address] [place] [phone] May, Pelvic pain R10.2 [facility] [address] [id number] [address] [place] [phone] Apr, Gastroenteritis K52.9 [facility] [address] [facility] [id number] [address] [place] [phone] Apr, Blood in urine R31.9 and Acu te cystitis with hematuria N30.01 [facility] [address] [id number] [address] [place] [phone] Apr, Major depressive disorder in partial remission F32.4 ; FRANCIS (generalized anxiety disorder) F41.1 and Conversion disorder (or hysterical neurosis, conversion type) F44.9 [facility] [address] [facility] [id number] [address] [place] [phone] Apr, [place] [address] [place] [id number] [place] [phone] Apr, Abnormal mammogram R92.8 [place] [address] [id number] [address] [place] [phone] Mar, [facility] [address] [facility] [id number] [address] [place] [phone] Mar, Gastroenteritis K52.9 and Se izure disorder G40.909 [facility] [address] [facility] [id number] [address] [place] [phone] Dec, [facility] [address] [facility] [id number] [address] [place] [phone] Dec, Other headache syndrome G44. 89 [facility] [address] [facility] [id number] [address] [place] [phone] Dec, [facility] [address] [facility] [id number] [address] [place] [id number] Dec, Thoracic disc herniation M51 .24 [place] [address] [facility] [id number] [address] [place] [phone] Dec, [facility] [address] [id number] [address] [place] [phone] Nov, Major depressive disorder in partial remission F32.4 and FRANCIS (generalized anxiety disorder) F41.1 [facility] [address] [id number] [address] [place] [phone] Nov, [facility] [address] [id number] [address] [place] [phone] Nov, Dorsalgia, unspecified M54.9 [facility] [address] [id number] [address] [place] [phone] Oct, [facility] [address] [id number] [address] [place] [phone] September, [facility] [address] [id number] [address] [place] [phone] Aug, [facility] [address] [id number] [address] [place] [phone] Aug, Major depressive disorder in partial remission F32.4 and FRANCIS (generalized anxiety disorder) F41.1 [facility] [address] [id number] [address] [place] [phone] Aug, [facility] [address] [id number] [address] [place] [phone] Jul, Abnormal mammogram R92.8 [facility] [address] [id number] [address] [place] [phone] Jul, [facility] [address] [id number] [address] [place] [id number] 15 Jul, 2015 [facility] [address] [id number] [address] [place] [phone] 14 Jul, 2015 [facility] [address] [id number] [address] [place] [phone] Jul, [facility] [address] [id number] [address] [place] [id number] Jul, [facility] [address] [id number] [address] [place] [phone] Jul, [facility] [address] [id number] [address] [place] [phone] Jun, Major depressive disorder in partial remission F32.4 and FRANCIS (generalized anxiety disorder) F41.1 [facility] [address] [id number] [address] [place] [phone] Jun, [facility] [address] [id number] [address] [place] [phone] May, [facility] [address] [id number] [address] [place] [phone] Apr, [facility] [address] [id number] [address] [place] [phone] Mar, Major depressive disorder, r ecurrent episode, moderate F33.1 ; PTSD (post-traumatic stress disorder) F43.10 and FRANCIS (generalized anxiety disorder) F41.1 [facility] [address] [id number] [address] [place] [phone] Mar, [facility] [address] [id number] [address] [place] [phone] Mar, [facility] [address] [id number] [address] [place] [phone] Mar, [facility] [address] [id number] [address] [place] [phone] Mar, [facility] [address] [id number] [address] [place] [phone] Jan, [facility] [address] [id number] [address] [place] [phone] Jan, [facility] [address] [id number] [address] [place] [phone] Jan, [facility] [address] [id number] [address] [place] [phone] Jan, Thoracic disc herniation 722 .11 [facility] [address] [id number] [address] [place] [phone] Dec, [facility] [address] [id number] [address] [place] [phone] Dec, [facility] [address] [id number] [address] [place] [phone] Dec, [facility] [address] [id number] [address] [place] [phone] Nov, [facility] [address] [id number] [address] [place] [phone] Nov, Generalized anxiety disorder 300.02 ; Posttraumatic stress disorder 309.81 and Major depressive disorder, recurrent episode, moderate 296.32 [facility] [address] [id number] [address] [place] [phone] Nov, [facility] [address] [id number] [address] [place] [phone] Nov, [facility] [address] [id number] [address] [place] [phone] Oct, [facility] [address] [id number] [address] [place] [phone] Oct, [facility] [address] [id number] [address] [place] [phone] Oct, [facility] [address] [id number] [address] [place] [id number] September, [facility] [address] [id number] [address] [place] [phone] September, [facility] [address] [id number] [address] [place] [phone] Aug, [facility] [address] [id number] [address] [place] [phone] Aug, [facility] [address] [id number] [address] [place] [address], [place] [address] Jul, [facility] [address] [id number] [address] [place] [address], [place] [address] Jul, [facility] [address] [id number] [address] [place] [address], [place] [address] 17 Jul, 2014 [facility] [address] [id number] [address] [place] [address], [place] [address] 17 Jul, 2014 [facility] [address] [id number] [address] [place] [address], [place] [address] 16 Jul, 2014 [facility] [address] [id number] [address] [place] [address], [place] [address] Jul, [facility] [address] [id number] [address] [place] [address], [place] [address] Jul, [facility] [address] [id number] [address] [place] [address], [place] [address] Jul, [facility] [address] [id number] [address] [place] [address], [place] [id number] Jul, [facility] [address] [id number] [address] [place] [address], [place] [address] Jul, [facility] [address] [id number] [address] [place] [address], [place] [address] Jun, [facility] [address] [id number] [address] [place] [address], [place] [address] Jun, [facility] [address] [id number] [address] [place] [address], [place] [address] Jun, [facility] [address] [id number] [address] [place] [address], [place] [address] May, [facility] [address] [id number] [address] [place] [address], [place] [address] Apr, [facility] [address] [id number] [address] [place] [address] Apr, [facility] [address] [id number] [address] [place] [address], [place] [address] Apr, [facility] [address] [id number] [address] [place] [address] Apr, [facility] [address] [id number] [address] [place] [address], [place] [address] Apr, [facility] [address] [id number] [address] [place] [address] Apr, [facility] [address] [id number] [address] [place] [address], [place] [address] Apr, [facility] [address] [id number] [address] [place] [address], [place] [address] Apr, [facility] [address] [id number] [address] [place] [address], [place] [address] Mar, [facility] [address] [id number] [address] [place] [address], [place] [address] Mar, [facility] [address] [id number] [address] [place] [address] Mar, [facility] [address] [id number] [address] [place] [address] Mar, [facility] [address] [id number] [address] [place] [address] Mar, [facility] [address] [id number] [address] [place] [address] Mar, [facility] [address] [id number] [address] [place] [address] Mar, [facility] [address] [id number] [address] [place] [address] Mar, [facility] [address] [id number] [address] [place] [address], [place] [address] Mar, [facility] [address] [id number] [address] [place] [address], [place] [address] 2013 [facility] [address] [id number] [address] [place] [address], [place] [address] 17 Mar, 2013 [facility] [address] [id number] [address] [place] [address], [place] [address] 14 Mar, 2013 [facility] [address] [id number] [address] [place] [address], [place] [address] 14 Mar, 2013 [facility] [address] [id number] [address] [place] [address], [place] [address] 07 Mar, 2013 [facility] [address] [id number] [address] [place] [address], [place] [address] 07 Mar, 2013 [facility] [address] [id number] [address] [place] [address], [place] [address] 06 Mar, 2013 [facility] [address] [id number] [address] [place] [address], [place] [address] 06 Mar, 2013 [facility] [address] [id number] [address] [place] [address], [place] [address] 19 Sep, 2013 [facility] [address] [id number] [address] [place] [address], [place] [address] 19 Sep, 2013 [facility] [address] [id number] [address] [place] [address], [place] [address] 09 Sep, 2013 [facility] [address] [id number] [address] [place] [address], [place] [address] 09 Sep, 2013 [facility] [address] [id number] [address] [place] [address], [place] [address] 05 Sep, 2013 [facility] [address] [id number] [address] [place] [address], [place] [address] 05 Sep, 2013 [facility] [address] [id number] [address] [place] [address], [place] [address] 05 Sep, 2013 [facility] [address] [id number] [address] [place] [address], [place] [address] 05 Jan, 2014 [facility] [address] [id number] [facility] [place] [address] Jan, 2013 [facility] [address] [id number] [address] [place] [address], [place] [address] Jan, [facility] [address] [id number] [address] [place] [address], [place] [address] Jan, 2013 [facility] [address] [id number] [address] [place] [address], [place] [address] Jan, 2013 [facility] [address] [id number] [address] [place] [address], [place] [address] Jan, [facility] [address] [id number] [address] [place] [address], [place] [address] Dec, [facility] [address] [id number] [address] [place] [address], [place] [address] Dec, [facility] [address] [id number] [address] [place] [address], [place] [address] Dec, [facility] [address] [id number] [address] [place] [address], [place] [address] Dec, [facility] [address] [id number] [address] [place] [address], [place] [address] Dec, [facility] [address] [id number] [address] [place] [address], [place] [address] Dec, [facility] [address] [place] [id number] Dec, [facility] [address] [place] [id number] Dec, [facility] [address] [id number] [address] [place] [address], [place] [address] Dec, [facility] [address] [id number] [address] [place] [address], [place] [address] Dec, [facility] [address] [id number] [address] [place] [address], [place] [address] Dec, [facility] [address] [id number] [address] [place] [address], [place] [address] Dec, [facility] [address] [id number] [address] [place] [address], [place] [address] Nov, [facility] [address] [id number] [address] [place] [address], [place] [address] Nov, [facility] [address] [id number] [address] [place] [address], [place] [address] Nov, [facility] [address] [id number] [address] [place] [address], [place] [address] Nov, [facility] [address] [id number] [address] [place] [address], [place] [address] Nov, [facility] [address] [id number] [address] [place] [address], [place] [address] Nov, [facility] [address] [id number] [address] [place] [address], [place] [address] Nov, [facility] [address] [id number] [address] [place] [address], [place] [address] Nov, [facility] [address] [id number] [address] [place] [address], [place] [address] Nov, [facility] [address] [id number] [address] [place] [address], [place] [address] Nov, [facility] [address] [id number] [address] [place] [address], [place] [address] Nov, [facility] [address] [id number] [address] [place] [address], [place] [address] Nov, [facility] [address] [id number] [address] [place] [address], [place] [address] Nov, [facility] [address] [id number] [address] [place] [address], [place] [address] Oct, [facility] [address] [id number] [address] [place] [address], [place] [address] Oct, [facility] [address] [id number] [facility] [place] [address] Oct, [facility] [address] [id number] [address] [place] [address], [place] [address] Oct, [facility] [address] [id number] [address] [place] [address], [place] [address] Oct, [facility] [address] [id number] [address] [place] [address], [place] [address] Oct, [facility] [address] [id number] [address] [place] [address], [place] [address] Oct, [facility] [address] [id number] [address] [place] [address], [place] [address] Oct, [facility] [address] [id number] [address] [place] [address], [place] [address] Oct, [facility] [address] [id number] [address] [place] [address], [place] [address] Oct, [facility] [address] [id number] [address] [place] [address], [place] [address] Oct, [facility] [address] [id number] [address] [place] [address], [place] [address] Oct, [facility] [address] [id number] [address] [place] [address], [place] [address] September, [facility] [address] [id number] [address] [place] [address], [place] [address] September, [facility] [address] [id number] [address] [place] [address], [place] [address] September, [facility] [address] [id number] [address] [place] [address], [place] [address] September, [facility] [address] [id number] [address] [place] [address], [place] [address] Aug, [facility] [address] [id number] [facility] [place] [address] Aug, [facility] [address] [id number] [facility] [place] [address] Aug, [facility] [address] [id number] [facility] [place] [address] Aug, [facility] [address] [id number] [address] [place] [address], [place] [address] Aug, [facility] [address] [id number] [facility] [place] [address] Aug, [facility] [address] [id number] [address] [place] [address], [place] [address] Aug, [facility] [address] [id number] [address] [place] [address], [place] [address] Jul, [facility] [address] [id number] [address] [place] [address], [place] [address] Jul, [facility] [address] [id number] [address] [place] [address], [place] [address] Jul, [facility] [address] [id number] [address] [place] [address], [place] [address] Jul, [facility] [address] [id number] [address] [place] [address], [place] [address] Jul, [facility] [address] [id number] [address] [place] [address], [place] [address] Jul, [facility] [address] [id number] [address] [place] [address], [place] [address] Jul, [facility] [address] [id number] [address] [place] [address], [place] [address] Jul, [facility] [address] [id number] [address] [place] [address], [place] [address] 18 Jul, 2013 [facility] [address] [id number] [address] [place] [address], [place] [address] 18 Jul, 2013 [facility] [address] [id number] [address] [place] [address], [place] [address] 18 Jul, 2013 [facility] [address] [id number] [address] [place] [address], [place] [address] 18 Jul, 2013 [facility] [address] [id number] [address] [place] [address], [place] [address] 14 Jul, 2013 [facility] [address] [id number] [address] [place] [address], [place] [address] 14 Jul, 2013 [facility] [address] [id number] [address] [place] [address], [place] [address] Jul, [facility] [address] [id number] [address] [place] [address], [place] [address] Jul, [facility] [address] [id number] [address] [place] [address], [place] [address] Jul, [facility] [address] [id number] [address] [place] [address], [place] [address] Jul, [facility] [address] [id number] [address] [place] [address], [place] [address] Jun, [facility] [address] [id number] [address] [place] [address], [place] [address] Jun, [facility] [address] [id number] [address] [place] [address], [place] [address] Jun, [facility] [address] [id number] [address] [place] [address], [place] [address] 15 Jun, 2013 [facility] [address] [id number] [address] [place] [address], [place] [address] Jun, [facility] [address] [id number] [address] [place] [address], [place] [address] 14 Jun, 2013 [facility] [address] [id number] [address] [place] [address], [place] [address] 14 Jun, 2013 [facility] [address] [id number] [address] [place] [address], [place] [address] 14 Jun, 2013 [facility] [address] [id number] [address] [place] [address], [place] [address] 14 Jun, 2013 [facility] [address] [id number] [address] [place] [address], [place] [address] 14 Jun, 2013 [facility] [address] [id number] [address] [place] [address], [place] [address] 27 May, 2013 [facility] [address] [id number] [address] [place] [address], [place] [address] 27 May, 2013 [facility] [address] [id number] [address] [place] [address], [place] [address] 26 May, 2013 [facility] [address] [id number] [address] [place] [address], [place] [address] 19 May, 2013 [facility] [address] [id number] [address] [place] [address], [place] [address] 19 May, 2013 [facility] [address] [id number] [address] [place] [address], [place] [address] 16 May, 2013 [facility] [address] [id number] [address] [place] [address], [place] [address] 16 May, 2013 [facility] [address] [id number] [address] [place] [address], [place] [address] 16 May, 2013 [facility] [address] [id number] [address] [place] [address], [place] [address] 16 May, 2013 [facility] [address] [id number] [address] [place] [address], [place] [address] 13 May, 2013 [facility] [address] [id number] [address] [place] [address], [place] [address] 13 May, 2013 [facility] [address] [id number] [address] [place] [address], [place] [address] 11 May, 2013 [facility] [address] [id number] [address] [place] [address] [address] Apr, [facility] [address] [id number] [address] [place] [address], [place] [address] Apr, [facility] [address] [id number] [address] [place] [address], [place] [address] 18 Apr, 2013 [facility] [address] [id number] [address] [place] [address], [place] [address] Apr, [facility] [address] [id number] [address] [place] [address], [place] [address] Apr, [facility] [address] [id number] [address] [place] [address], [place] [address] Apr, [facility] [address] [id number] [address] [place] [address], [place] [address] 08 Apr, 2013 [facility] [address] [id number] [address] [place] [address], [place] [address] Apr, [facility] [address] [id number] [address] [place] [address] Apr, [facility] [address] [id number] [address] [place] [address], [place] [address] Apr, [facility] [address] [id number] [address] [place] [address] Apr, [facility] [address] [id number] [address] [place] [address] Mar, [facility] [address] [id number] [address] [place] [address] Mar, [facility] [address] [id number] [address] [place] [address], [place] [address] Mar, [facility] [address] [id number] [address] [place] [address] Mar, [facility] [address] [id number] [address] [place] [address] Mar, [facility] [address] [id number] [address] [place] [address], [place] [address] Mar, [facility] [address] [id number] [address] [place] [address], [place] [address] Mar, [facility] [address] [id number] [address] [place] [address], [place] [address] Mar, [facility] [address] [id number] [address] [place] [address], [place] [address] Mar, [facility] [address] [id number] [address] [place] [address], [place] [address] Mar, [facility] [address] [id number] [address] [place] [address], [place] [address] Mar, [facility] [address] [id number] [address] [place] [address], [place] [address] Mar, [facility] [address] [id number] [address] [place] [address], [place] [address] 30 Jan, 2013 [facility] [address] [id number] [address] [place] [address], [place] [address] Jan, [facility] [address] [id number] [address] [place] [address], [place] [address] Jan, [facility] [address] [id number] [address] [place] [address], [place] [address] Jan, [facility] [address] [id number] [address] [place] [address], [place] [address] Dec, [facility] [address] [id number] [address] [place] [address], [place] [address] Dec, [facility] [address] [id number] [address] [place] [address], [place] [address] Dec, [facility] [address] [id number] [address] [place] [address], [place] [address] Dec, [facility] [address] [id number] [address] [place] [address], [place] [address] Dec, [facility] [address] [id number] [address] [place] [address], [place] [address] Dec, [facility] [address] [id number] [address] [place] [address], [place] [address] Dec, [facility] [address] [id number] [address] [place] [address], [place] [address] Dec, [facility] [address] [id number] [address] [place] [address], [place] [address] Dec, [facility] [address] [id number] [address] [place] [address], [place] [address] Nov, [facility] [address] [id number] [address] [place] [address], [place] [address] Nov, [facility] [address] [id number] [address] [place] [address], [place] [address] Nov, [facility] [address] [id number] [address] [place] [address], [place] [address] Nov, [facility] [address] [id number] [address] [place] [address], [place] [address] Nov, [facility] [address] [id number] [address] [place] [address], [place] [address] Nov, [facility] [address] [id number] [address] [place] [address], [place] [address] Nov, [facility] [address] [id number] [address] [place] [address], [place] [address] Nov, [facility] [address] [id number] [address] [place] [address], [place] [address] Oct, [facility] [address] [id number] [address] [place] [address], [place] [address] Oct, [facility] [address] [id number] [address] [place] [address], [place] [address] Oct, [facility] [address] [id number] [address] [place] [address], [place] [address] Oct, [facility] [address] [id number] [address] [place] [address], [place] [address] Oct, [facility] [address] [id number] [address] [place] [address], [place] [address] Oct, [facility] [address] [id number] [address] [place] [address], [place] [address] Oct, [facility] [address] [id number] [address] [place] [address], [place] [address] Oct, [facility] [address] [id number] [address] [place] [address], [place] [address] Oct, [facility] [address] [id number] [address] [place] [address], [place] [address] 18 Oct, 2012 [facility] [address] [id number] [address] [place] [address], [place] [address] 17 Oct, 2012 [facility] [address] [id number] [address] [place] [address], [place] [address] 14 Oct, 2012 [facility] [address] [id number] [address] [place] [address], [place] [address] 07 Oct, 2012 [facility] [address] [id number] [address] [place] [address], [place] [address] 30 Sep, 2012 [facility] [address] [id number] [address] [place] [address], [place] [address] September, [facility] [address] [id number] [address] [place] [address], [place] [address] September, [facility] [address] [id number] [address] [place] [address], [place] [address] Aug, [facility] [address] [id number] [address] [place] [address], [place] [address] 24 Aug, 2012 [facility] [address] [id number] [address] [place] [address], [place] [address] 18 Aug, 2012 [facility] [address] [id number] [address] [place] [address], [place] [address] 18 Aug, 2012 [facility] [address] [id number] [address] [place] [address], [place] [address] 18 Aug, 2012 [facility] [address] [id number] [address] [place] [address], [place] [address] 08 Aug, 2012 [facility] [address] [id number] [address] [place] [address], [place] [address] 05 Aug, 2012 [facility] [address] [id number] [address] [place] [address], [place] [address] Jul, [facility] [address] [id number] [address] [place] [address], [place] [address] Jul, [facility] [address] [id number] [address] [place] [address], [place] [address] Jul, [facility] [address] [id number] [address] [place] [address], [place] [address] Jul, [facility] [address] [id number] [address] [place] [address], [place] [address] Jul, [facility] [address] [id number] [address] [place] [address], [place] [address] Jul, [facility] [address] [id number] [address] [place] [address], [place] [address] Jul, [facility] [address] [id number] [address] [place] [address], [place] [address] Jul, [facility] [address] [id number] [address] [place] [address], [place] [address] Jul, [facility] [address] [id number] [address] [place] [address], [place] [address] Jul, [facility] [address] [id number] [address] [place] [address], [place] [address] Jul, [facility] [address] [id number] [address] [place] [address], [place] [address] 06 Jul, 2012 [facility] [address] [id number] [address] [place] [address], [place] [address] Jul, [facility] [address] [id number] [address] [place] [address], [place] [address] 24 Jun, 2012 [facility] [address] [id number] [address] [place] [address], [place] [address] Jun, [facility] [address] [id number] [address] [place] [address], [place] [address] Jun, [facility] [address] [id number] [address] [place] [address], [place] [address] 17 Jun, 2012 [facility] [address] [id number] [address] [place] [address], [place] [address] 15 Jun, 2012 [facility] [address] [id number] [address] [place] [address], [place] [address] 14 Jun, 2012 [facility] [address] [id number] [address] [place] [address], [place] [address] Jun, [facility] [address] [id number] [address] [place] [address], [place] [address] May, [facility] [address] [id number] [address] [place] [address], [place] [address] May, [facility] [address] [id number] [address] [place] [address], [place] [address] May, [facility] [address] [id number] [address] [place] [address], [place] [address] May, [facility] [address] [id number] [address] [place] [address], [place] [address] May, [facility] [address] [id number] [address] [place] [address], [place] [address] 24 May, 2012 [facility] [address] [id number] [address] [place] [address], [place] [address] May, [facility] [address] [id number] [address] [place] [address], [place] [address] May, [facility] [address] [id number] [address] [place] [address], [place] [address] May, [facility] [address] [id number] [address] [place] [address], [place] [address] May, [facility] [address] [id number] [address] [place] [address], [place] [address] Apr, [facility] [address] [id number] [address] [place] [address], [place] [address] Apr, [facility] [address] [id number] [address] [place] [address], [place] [address] Apr, [facility] [address] [id number] [address] [place] [address], [place] [address] Apr, [facility] [address] [id number] [address] [place] [address], [place] [address] Apr, [facility] [address] [id number] [address] [place] [address], [place] [address] Apr, [facility] [address] [id number] [address] [place] [address], [place] [address] Apr, [facility] [address] [id number] [address] [place] [address], [place] [address] Apr, [facility] [address] [id number] [address] [place] [address], [place] [address] Apr, [facility] [address] [id number] [address] [place] [address], [place] [address] Apr, [facility] [address] [id number] [address] [place] [address], [place] [address] Apr, [facility] [address] [id number] [address] [place] [address], [place] [address] Apr, [facility] [address] [id number] [address] [place] [address], [place] [address] Mar, [facility] [address] [id number] [address] [place] [address], [place] [address] Mar, 2011 [facility] [address] [id number] [address] [place] [address], [place] [address] Mar, 2011 [facility] [address] [id number] [address] [place] [address], [place] [address] Mar, 2011 [facility] [address] [id number] [address] [place] [address], [place] [address] Mar, 2011 [facility] [address] [id number] [address] [place] [address], [place] [address] Mar, 2011 [facility] [address] [id number] [address] [place] [address], [place] [address] Mar, 2011 [facility] [address] [id number] [address] [place] [address], [place] [address] Mar, 2011 [facility] [address] [id number] [address] [place] [address] Mar, 2011 [facility] [address] [id number] [address] [place] [address] Mar, 2011 [facility] [address] [id number] [address] [place] [address] Mar, [facility] [address] [id number] [address] [place] [address] Mar, [facility] [address] [id number] [address] [place] [address] Mar, [facility] [address] [id number] [address] [place] [address] Mar, [facility] [address] [id number] [address] [place] [address] Mar, [facility] [address] [id number] [address] [place] [address] Mar, [facility] [address] [id number] [address] [place] [address] 25 Sep, 2011 [facility] [address] [id number] [address] [place] [address], [place] [address] 24 Sep, 2011 [facility] [address] [id number] [address] [place] [address], [place] [address] 22 Sep, 2011 [facility] [address] [id number] [address] [place] [address], [place] [address] 22 Sep, 2011 [facility] [address] [id number] [address] [place] [address], [place] [address] 21 Sep, 2011 [facility] [address] [id number] [address] [place] [address], [place] [address] 18 Sep, 2011 [facility] [address] [id number] [address] [place] [address], [place] [address] 14 Jan, 2011 [facility] [address] [id number] [address] [place] [address], [place] [address] 07 Jan, 2011 [facility] [address] [id number] [address] [place] [address], [place] [address] 15 Dec, 2011 [facility] [address] [id number] [address] [place] [address], [place] [address] 10 Dec, 2011 [facility] [address] [id number] [address] [place] [address], [place] [address] 09 Dec, 2011 [facility] [address] [id number] [address] [place] [address], [place] [address] Dec, [facility] [address] [id number] [address] [place] [address], [place] [address] Dec, [facility] [address] [id number] [address] [place] [address], [place] [address] Dec, [facility] [address] [id number] [address] [place] [address], [place] [address] Dec, [facility] [address] [id number] [address] [place] [address], [place] [address] Nov, [facility] [address] [id number] [address] [place] [address], [place] [address] 06 Oct, 2011 [facility] [address] [id number] [address] [place] [address], [place] [address] 05 Aug, 2011 [facility] [address] [id number] [address] [place] [address], [place] [address] 22 Jul, 2011 [facility] [address] [id number] [address] [place] [address], [place] [address] 19 Jul, 2011 [facility] [address] [id number] [address] [place] [address], [place] [address] 16 Jul, 2011 [facility] [address] [id number] [address] [place] [address], [place] [address] 14 Jul, 2011 [facility] [address] [id number] [address] [place] [address], [place] [address] 07 Jul, 2011 [facility] [address] [id number] [address] [place] [address], [place] [address] 02 Jul, 2011 [facility] [address] [id number] [address] [place] [address], [place] [address] Jul, [facility] [address] [id number] [address] [place] [address], [place] [address] 15 Jul, 2011 [facility] [address] [id number] [address] [place] [address], [place] [address] 13 Jul, 2011 [facility] [address] [id number] [address] [place] [address], [place] [address] 03 Jul, 2011 [facility] [address] [id number] [address] [place] [address], [place] [address] Jul, [facility] [address] [id number] [address] [place] [address], [place] [address] 24 Jun, 2011 [facility] [address] [id number] [address] [place] [address], [place] [address] Jun, [facility] [address] [id number] [address] [place] [address], [place] [address] 13 Jun, 2011 [facility] [address] [id number] [address] [place] [address], [place] [address] Jun, [facility] [address] [id number] [address] [place] [address], [place] [address] Jun, [facility] [address] [id number] [address] [place] [address], [place] [address] Jun, [facility] [address] [id number] [address] [place] [address], [place] [address] Jun, [facility] [address] [id number] [address] [place] [address], [place] [address] May, [facility] [address] [id number] [address] [place] [address], [place] [address] May, [facility] [address] [id number] [address] [place] [address], [place] [address] May, [facility] [address] [id number] [address] [place] [address], [place] [address] May, [facility] [address] [id number] [address] [place] [address], [place] [address] May, [facility] [address] [id number] [address] [place] [address], [place] [address] May, [facility] [address] [id number] [address] [place] [address], [place] [address] May, [facility] [address] [id number] [address] [place] [address], [place] [address] May, [facility] [address] [id number] [address] [place] [address], [place] [address] May, [facility] [address] [id number] [address] [place] [address], [place] [address] May, [facility] [address] [id number] [address] [place] [address], [place] [address] 15 Apr, 2011 [facility] [address] [id number] [address] [place] [address] Apr, [facility] [address] [id number] [address] [place] [address] Apr, [facility] [address] [id number] [address] [place] [address] Apr, [facility] [address] [id number] [address] [place] [address] Mar, [facility] [address] [id number] [address] [place] [address] Mar, [facility] [address] [id number] [address] [place] [address] Mar, [facility] [address] [facility] [id number] [address] [place] [address] Mar, IMMUNIZATIONS No Known Immunizations SOCIAL HISTORY Never Assessed REASON FOR VISIT PLAN OF CARE VITAL SIGNS Height 61 in 2013-01-03 Weight 164.55 lbs 2013-01-03 Temperature 98.2 degrees Fahrenheit 2013-01-03 Heart Rate 110 bpm 2013-01-03 Respiratory Rate 18 2013-01-03 Blood pressure systolic 120 mmHg 2013-01-03 Blood pressure diastolic 81 mmHg 2013-01-03 MEDICATIONS Unknown Medications RESULTS No Results PROCEDURES Procedure Date Ordered Result Body Site MEASURE BLOOD OXYGEN LEVEL Jan 03, 2013 URINALYSIS, AUTO, W/O SCOPE Jan 03, 2013 INSTRUCTIONS MEDICATIONS ADMINISTERED No Known Medications MEDICAL [...]
--- OUTSIDE RECORDS SUMMARY | 2020-01-03 17:50 | XMS REPORT ---
Author Author Pattie Moffett Doctor Organization [facility] Address Unknown Phone Unavailable Care Team Providers Care Engineer Remote Control Diesel Name Role Phone Migration, Doctor Unavailable Unavailable PROBLEMS Type Condition ICD9-CM Code [id number] Code Onset Dates Condition S tatus SNOMED Code Problem FRANCIS (generalized anxiety disorder) F41.1 Active 13802903 Problem Thoracic disc herniation M51.24 Activ e 225844850 Problem Major depressive disorder in partial remission F32 .4 Active 62205342 Problem Seizure disorder G40.909 Active 128 345576 Problem Conversion disorder (or hysterical neurosis, conversion ty pe) F44.9 Active 71826757 Problem Constipation, unspecified constipation type K59.00 Active 90407136 Problem Mild episode of recurrent major depressive disorder F33.0 Active 780689786 Problem Restless leg syndrome G25.81 Active 16740659 Problem Nonadherence to medication Z91.14 Act vivian 964362098 Problem Slow transit constipation K59.01 Acti ve 61836636 Problem Atrophic vaginitis N95.2 Active 5 8738456 Problem Paroxysmal tachycardia I47.9 Active 49853408 Problem Other chronic pain G89.29 Active 8 1838974 Problem Mild intermittent asthma without complication J45. 20 Active 317958747 Problem Obesity (BMI 30.0-34.9) E66.9 Active [id number] Problem High blood pressure I10 Active 60456026 ALLERGIES No Information ENCOUNTERS Encounter Location Date Diagnosis [facility] [address] [facility] [place] [id number] [address] [place] [id number] 08 Nov, 2019 [facility] [address] [facility] [place] [id number] [address] [place] [phone] Nov, [address] [id number] [id number] 26 Oct, 2019 Breast cancer screening Z12.[address] [id number] [address] 08 Oct, 2019 Breast cancer screening Z12. 39 [facility] [address] [id number] [address] [place] [phone] Oct, [facility] [address] [id number] [address] [place] [phone] Oct, [facility] [address] [id number] [address] [place] [phone] September, [facility] [address] [id number] [address] [place] [address] September, [facility] [address] [id number] [address] [place] [address] September, Well woman exam with routine gynecological exam Z01.419 and Atrophic vaginitis N95.2 [facility] [address] [id number] [address] [place] [phone] September, Major depressive disorder in partial remission F32.4 ; FRANCIS (generalized anxiety disorder) F41.1 ; Restless leg syndrome G25.81 and Nonadherence to medication Z91.14 [facility] [address] [id number] [address] [place] [phone] September, [facility] [address] [id number] [address] [place] [phone] Aug, [facility] [address] [facility] [id number] [address] [place] [id number] Aug, Dental examination Z01.20 [facility] [address] [id number] [address] [place] [phone] Aug, Dental examination Z01.20 an d Caries K02.9 [facility] [address] [id number] [address] [place] [phone] Aug, [facility] [address] [id number] [address] [place] [phone] Aug, [facility] [address] [id number] [address] [place] [phone] Aug, Other chronic pain G89.29 an d Back muscle spasm M62.830 [facility] [address] [id number] [address] [place] [id number] 07 Aug, 2019 [facility] [address] [id number] [address] [place] [address] Aug, Major depressive disorder in partial remission F32.4 ; FRANCIS (generalized anxiety disorder) F41.1 ; Restless leg syndrome G25.81 and Nonadherence to medication Z91.14 [facility] [address] [id number] [address] [place] [phone] Aug, [facility] [address] [id number] [address] [place] [phone] Jul, [facility] [address] [id number] [address] [place] [phone] Jul, [facility] [address] [id number] [address] [place] [id number] Jul, Major depressive disorder in partial remission F32.4 ; FRANCIS (generalized anxiety disorder) F41.1 ; Restless leg syndrome G25.81 and High blood pressure I10 [facility] [address] [id number] [address] [place] [phone] 17 Jul, 2019 [facility] [address] [id number] [address] [place] [phone] Jul, [facility] [address] [id number] [address] [place] [phone] Jun, [facility] [address] [id number] [address] [place] [phone] May, [facility] [address] [id number] [address] [place] [id number] Apr, [facility] [address] [id number] [address] [place] [phone] Apr, [facility] [address] [id number] [address] [place] [address] Mar, [facility] [address] [id number] [address] [place] [phone] Mar, Major depressive disorder in partial remission F32.4 ; FRANCIS (generalized anxiety disorder) F41.1 and Restless leg syndrome G25.81 [facility] [address] [id number] [address] [place] [phone] Mar, Obesity (BMI 30.0-34.9) E66. 9 [facility] [address] [id number] [address] [place] [phone] Jan, [facility] [address] [id number] [address] [place] [address] Jan, Burn T30.0 [facility] [address] [id number] [address] [place] [phone] Dec, [facility] [address] [id number] [address] [place] [phone] Nov, [facility] [address] [id number] [address] [place] [phone] Nov, [facility] [address] [id number] [address] [place] [id number] Nov, Dental examination Z01.20 [facility] [address] [id number] [address] [place] [address] September, [facility] [address] [id number] [address] [place] [address] [id number] September, Decay, teeth K02.9 and Denta l examination Z01.20 [facility] [address] [id number] [address] [place] [id number] September, Dental examination Z01.20 [facility] [address] [id number] [address] [place] [address] September, RFANCIS (generalized anxiety dis order) F41.1 ; Major depressive disorder in partial remission F32.4 and Restless leg syndrome G25.81 [facility] [address] [phone] Aug, [facility] [address] [phone] Jul, [facility] [address] [place] [id number] [place] [address] Jul, Encounter to discuss test re sults Z71.2 [facility] [address] [address] Jul, Pelvic pain R10.2 ; Screenin g for breast cancer Z12.31 and Obesity (BMI 30.0-34.9) E66.9 [place] [address] [address] Jul, Mild intermittent asthma wit hout complication J45.20 [place] [address] [address] Jul, Major depressive disorder in partial remission F32.4 and FRANCIS (generalized anxiety disorder) F41.1 [place] [address] [phone] Jul, [facility] [address] [address] Jun, [place] [address] [address] May, Major depressive disorder in partial remission F32.4 ; FRANCIS (generalized anxiety disorder) F41.1 and Restless leg syndrome G25.81 [place] [address] [address] Apr, [facility] [address] [place] [id number] [place] [address] Mar, [facility] [address] [place] [id number] [address] [place] [id number] 21 Sep, 2018 Pain in thoracic spine M54.6 and Other chronic pain G89.29 [facility] [address] [id number] [address] [place] [phone] 14 Jan, 2018 [facility] [address] [id number] [address] [place] [id number] 11 Jan, 2018 Mild episode of recurrent ma saray depressive disorder F33.0 ; FRANCIS (generalized anxiety disorder) F41.1 and Restless leg syndrome G25.81 [facility] [address] [id number] [address] [place] [phone] Dec, [facility] [address] [id number] [address] [place] [phone] Dec, Hospital discharge follow-up Z09 [facility] [address] [id number] [address] [place] [phone] Nov, [facility] [address] [id number] [address] [place] [phone] Nov, [facility] [address] [id number] [address] [place] [phone] September, [facility] [address] [id number] [address] [place] [phone] September, [facility] [address] [id number] [address] [place] [phone] September, Major depressive disorder in partial remission F32.4 ; FRANCIS (generalized anxiety disorder) F41.1 and Restless leg syndrome G25.81 [facility] [address] [id number] [address] [place] [id number] September, [facility] [address] [id number] [address] [place] [phone] Jul, [facility] [address] [id number] [address] [place] [phone] Jul, Dorsalgia, unspecified M54.9 [facility] [address] [id number] [address] [place] [phone] Jul, Mild episode of recurrent ma saray depressive disorder F33.0 and FRANCIS (generalized anxiety disorder) F41.1 [facility] [address] [id number] [address] [place] [phone] May, [facility] [address] [facility] [place] [id number] [address] [place] [address] May, Dysuria R30.0 and Acute cyst itis with hematuria N30.01 [facility] [address] [id number] [address] [place] [phone] Apr, [place] [address] [facility] [place] [id number] [address] [place] [address] Apr, Major depressive disorder in partial remission F32.4 and FRANCIS (generalized anxiety disorder) F41.1 [place] [address] [facility] [place] [id number] [address] [place] [phone] Mar, Paroxysmal tachycardia I47.9 [place] [address] [facility] [place] [id number] [address] [place] [phone] Mar, Paroxysmal tachycardia I47.9 and Pain of left lower extremity M79.605 [place] [address] [facility] [place] [id number] [address] [place] [address] Mar, FRANCIS (generalized anxiety dis order) F41.1 and Major depressive disorder in partial remission F32.4 [place] [address] [facility] [place] [id number] [address] [place] [phone] Jan, [facility] [address] [id number] [address] [place] [phone] Jan, [place] [address] [facility] [place] [id number] [address] [place] [phone] Jan, [facility] [address] [facility] [place] [id number] [address] [place] [id number] Dec, Constipation, unspecified co nstipation type K59.00 [place] [address] [facility] [place] [id number] [address] [place] [address] Dec, [facility] [address] [id number] [address] [place] [address] Nov, [facility] [address] [facility] [place] [id number] [address] [place] [address] Nov, Major depressive disorder in partial remission F32.4 and FRANCIS (generalized anxiety disorder) F41.1 [facility] [address] [facility] [place] [id number] [address] [place] [phone] Oct, Abdominal pain R10.9 and Slo w transit constipation K59.01 [place] [address] [facility] [place] [id number] [address] [place] [phone] Aug, Major depressive disorder in partial remission F32.4 ; FRANCIS (generalized anxiety disorder) F41.1 ; Conversion disorder (or hysterical neurosis, conversion type) F44.9 ; Dorsalgia, unspecified M54.9 and Long-term use of high-risk medication Z79.899 [place] [id number] [facility] [place] [id number] [address] [place] [address] Aug, [place] [address] [facility] [place] [id number] [address] [place] [id number] Jul, Paroxysmal tachycardia I47.9 [place] [id number] [facility] [place] [id number] [address] [place] [phone] Jul, Paroxysmal tachycardia I47.9 [place] [address] [facility] [place] [id number] [address] [place] [phone] Jun, [facility] [address] [facility] [place] [id number] [address] [place] [phone] Jun, Major depressive disorder in partial remission F32.4 ; FRANCIS (generalized anxiety disorder) F41.1 and Conversion disorder (or hysterical neurosis, conversion type) F44.9 [facility] [address] [facility] [place] [id number] [address] [place] [phone] May, Pelvic pain R10.2 [facility] [address] [id number] [address] [place] [phone] 30 Apr, 2016 Gastroenteritis K52.9 [facility] [address] [id number] [address] [place] [phone] 17 Apr, 2016 Blood in urine R31.9 and Acu te cystitis with hematuria N30.01 [facility] [address] [id number] [address] [place] [address] Apr, Major depressive disorder in partial remission F32.4 ; FRANCIS (generalized anxiety disorder) F41.1 and Conversion disorder (or hysterical neurosis, conversion type) F44.9 [facility] [address] [id number] [address] [place] [address] Apr, [facility] [address] [facility] [place] [id number] [address] [place] [address] Apr, Abnormal mammogram R92.8 [facility] [address] [id number] [address] [place] [address] Mar, [facility] [address] [id number] [address] [place] [address] Mar, Gastroenteritis K52.9 and Se izure disorder G40.909 [facility] [address] [id number] [address] [place] [address] Dec, [facility] [address] [id number] [address] [place] [phone] Dec, Other headache syndrome G44. 89 [facility] [address] [id number] [address] [place] [phone] Dec, [facility] [address] [facility] [place] [id number] [address] [place] [address] Dec, Thoracic disc herniation M51 .24 [facility] [address] [id number] [address] [place] [phone] Dec, [facility] [address] [facility] [place] [id number] [address] [place] [address] Nov, Major depressive disorder in partial remission F32.4 and FRANCIS (generalized anxiety disorder) F41.1 [facility] [address] [id number] [address] [place] [address] Nov, [facility] [address] [id number] [address] [place] [address] Nov, Dorsalgia, unspecified M54.9 [facility] [address] [id number] [address] [place] [address] Oct, [facility] [address] [id number] [address] [place] [address] September, [facility] [address] [id number] [address] [place] [phone] Aug, [facility] [address] [id number] [address] [place] [address] Aug, Major depressive disorder in partial remission F32.4 and FRANCIS (generalized anxiety disorder) F41.1 [facility] [address] [id number] [address] [place] [phone] Aug, [facility] [address] [id number] [address] [place] [address] Jul, Abnormal mammogram R92.8 [facility] [address] [id number] [address] [place] [address] Jul, [facility] [address] [id number] [address] [place] [id number] Jul, [facility] [address] [id number] [address] [place] [address] Jul, [facility] [address] [id number] [address] [place] [phone] Jul, [facility] [address] [id number] [address] [place] [address] Jul, [facility] [address] [id number] [address] [place] [address] Jul, [facility] [address] [id number] [address] [place] [phone] Jun, Major depressive disorder in partial remission F32.4 and FRANCIS (generalized anxiety disorder) F41.1 [facility] [address] [id number] [address] [place] [phone] Jun, [facility] [address] [id number] [address] [place] [id number] May, [facility] [address] [id number] [address] [place] [address] Apr, [facility] [address] [id number] [address] [place] [address] Mar, Major depressive disorder, r ecurrent episode, moderate F33.1 ; PTSD (post-traumatic stress disorder) F43.10 and FRANCIS (generalized anxiety disorder) F41.1 [facility] [address] [id number] [address] [place] [address] Mar, [facility] [address] [id number] [address] [place] [address] Mar, [facility] [address] [id number] [address] [place] [address] Mar, [facility] [address] [id number] [address] [place] [address] Mar, [facility] [address] [id number] [address] [place] [id number] 23 Jan, 2015 [facility] [address] [id number] [address] [place] [id number] 15 Jan, 2015 [facility] [address] [id number] [address] [place] [address] 15 Jan, 2015 [facility] [address] [facility] [id number] [address] [place] [phone] 14 Jan, 2015 Thoracic disc herniation 722 .11 [facility] [address] [id number] [address] [place] [address] Dec, [facility] [address] [id number] [address] [place] [id number] Dec, [facility] [address] [id number] [address] [place] [address] Dec, [facility] [address] [id number] [address] [place] [address] Nov, [facility] [address] [id number] [address] [place] [address] Nov, Generalized anxiety disorder 300.02 ; Posttraumatic stress disorder 309.81 and Major depressive disorder, recurrent episode, moderate 296.32 [facility] [address] [id number] [address] [place] [address] Nov, [facility] [address] [id number] [address] [place] [id number] Nov, [facility] [address] [id number] [address] [place] [phone] Oct, [facility] [address] [id number] [address] [place] [address] Oct, [facility] [address] [id number] [address] [place] [phone] Oct, [facility] [address] [id number] [address] [place] [address] September, [facility] [address] [id number] [address] [place] [phone] September, [facility] [address] [id number] [address] [place] [address] Aug, [facility] [address] [id number] [address] [place] [address] Aug, [facility] [address] [id number] [address] [place] [phone] Jul, [facility] [address] [id number] [address] [place] [address], [place] [address] Jul, [facility] [address] [id number] [address] [place] [address], [place] [id number] Jul, [facility] [address] [id number] [address] [place] [address], [place] [id number] 17 Jul, 2014 [facility] [address] [id number] [address] [place] [address], [place] [id number] Jul, [facility] [address] [id number] [address] [place] [address], [place] [id number] Jul, [facility] [address] [id number] [address] [place] [address], [place] [id number] Jul, [facility] [address] [id number] [address] [place] [address], [place] [id number] Jul, [facility] [address] [id number] [address] [place] [address], [place] [id number] Jul, [facility] [address] [id number] [address] [place] [address], [place] [id number] Jul, [facility] [address] [id number] [address] [place] [address], [place] [id number] Jun, [facility] [address] [id number] [address] [place] [address], [place] [address] Jun, [facility] [address] [id number] [address] [place] [address], [place] [id number] Jun, [facility] [address] [id number] [address] [place] [address], [place] [id number] May, [facility] [address] [id number] [address] [place] [address], [place] [id number] Apr, [facility] [address] [id number] [address] [place] [address], [place] [id number] Apr, [facility] [address] [id number] [address] [place] [address], [place] [id number] Apr, [facility] [address] [id number] [address] [place] [address], [place] [id number] Apr, [facility] [address] [id number] [address] [place] [address], [place] [address] Apr, [facility] [address] [id number] [address] [place] [address], [place] [address] Apr, [facility] [address] [id number] [address] [place] [address], [place] [address] Apr, [facility] [address] [id number] [address] [place] [address], [place] [address] Apr, [facility] [address] [id number] [address] [place] [address], [place] [address] Mar, [facility] [address] [id number] [address] [place] [address], [place] [address] Mar, [facility] [address] [id number] [address] [place] [address], [place] [address] Mar, [facility] [address] [id number] [address] [place] [address], [place] [address] Mar, [facility] [address] [id number] [address] [place] [address], [place] [id number] Mar, [facility] [address] [id number] [address] [place] [address], [place] [id number] Mar, [facility] [address] [id number] [address] [place] [address], [place] [address] Mar, [facility] [address] [id number] [address] [place] [address], [place] [address] Mar, [facility] [address] [id number] [address] [place] [address], [place] [address] Mar, [facility] [address] [id number] [address] [place] [address], [place] [address] Mar, [facility] [address] [id number] [address] [place] [address], [place] [address] Mar, 2013 [facility] [address] [id number] [address] [place] [address], [place] [address] Mar, [facility] [address] [id number] [address] [place] [address], [place] [address] 14 Mar, 2014 [facility] [address] [id number] [address] [place] [address], [place] [address] Mar, 2013 [facility] [address] [id number] [address] [place] [address], [place] [address] Mar, [facility] [address] [id number] [address] [place] [address], [place] [address] Mar, 2013 [facility] [address] [id number] [address] [place] [address], [place] [address] Mar, 2013 [facility] [address] [id number] [address] [place] [address], [place] [address] 19 Sep, 2013 [facility] [address] [id number] [address] [place] [address], [place] [address] 19 Sep, 2013 [facility] [address] [id number] [address] [place] [address], [place] [address] 09 Sep, 2013 [facility] [address] [id number] [address] [place] [address], [place] [address] 09 Sep, 2013 [facility] [address] [id number] [address] [place] [address], [place] [address] 05 Sep, 2013 [facility] [address] [id number] [address] [place] [address], [place] [address] 05 Sep, 2013 [facility] [address] [id number] [address] [place] [address], [place] [address] 05 Sep, 2013 [facility] [address] [id number] [address] [place] [address], [place] [address] 05 Sep, 2013 [facility] [address] [id number] [address] [place] [address], [place] [address] Jan, [facility] [address] [id number] [address] [place] [address], [place] [address] Jan, [facility] [address] [id number] [address] [place] [address], [place] [address] Jan, [facility] [address] [id number] [address] [place] [address], [place] [address] Jan, [facility] [address] [id number] [address] [place] [address], [place] [address] Jan, [facility] [address] [id number] [address] [place] [address], [place] [address] Dec, [facility] [address] [id number] [address] [place] [address], [place] [address] Dec, [facility] [address] [id number] [address] [place] [address], [place] [address] Dec, [facility] [address] [id number] [address] [place] [address], [place] [address] Dec, [facility] [address] [id number] [address] [place] [address], [place] [address] Dec, [facility] [address] [id number] [address] [place] [address], [place] [address] Dec, [facility] [address] [place] [id number] Dec, [facility] [address] [place] [id number] Dec, [facility] [address] [id number] [address] [place] [address], [place] [address] Dec, [facility] [address] [id number] [address] [place] [address], [place] [address] Dec, [facility] [address] [id number] [address] [place] [address], [place] [address] Dec, [facility] [address] [id number] [address] [place] [address], [place] [address] Dec, [facility] [address] [id number] [facility] [place] [address] Nov, [facility] [address] [id number] [facility] [place] [address] Nov, [facility] [address] [id number] [facility] [place] [address] Nov, [facility] [address] [id number] [address] [place] [address], [place] [address] Nov, [facility] [address] [id number] [address] [place] [address], [place] [address] Nov, [facility] [address] [id number] [address] [place] [address], [place] [address] Nov, [facility] [address] [id number] [address] [place] [address], [place] [address] Nov, [facility] [address] [id number] [address] [place] [address], [place] [address] Nov, [facility] [address] [id number] [address] [place] [address], [place] [address] Nov, [facility] [address] [id number] [address] [place] [address], [place] [address] Nov, [facility] [address] [id number] [address] [place] [address], [place] [address] Nov, [facility] [address] [id number] [address] [place] [address], [place] [address] Nov, [facility] [address] [id number] [address] [place] [address], [place] [address] Nov, [facility] [address] [id number] [address] [place] [address], [place] [address] Oct, [facility] [address] [id number] [address] [place] [address], [place] [address] Oct, [facility] [address] [id number] [facility] [place] [address] Oct, [facility] [address] [id number] [address] [place] [address], [place] [address] Oct, [facility] [address] [id number] [address] [place] [address], [place] [address] Oct, [facility] [address] [id number] [address] [place] [address], [place] [address] Oct, [facility] [address] [id number] [address] [place] [address], [place] [address] Oct, [facility] [address] [id number] [address] [place] [address], [place] [address] Oct, [facility] [address] [id number] [address] [place] [address], [place] [address] Oct, [facility] [address] [id number] [address] [place] [address], [place] [address] Oct, [facility] [address] [id number] [address] [place] [address], [place] [address] Oct, [facility] [address] [id number] [address] [place] [address], [place] [address] Oct, [facility] [address] [id number] [address] [place] [address], [place] [address] September, [facility] [address] [id number] [address] [place] [address], [place] [address] September, [facility] [address] [id number] [address] [place] [address], [place] [address] September, [facility] [address] [id number] [address] [place] [address], [place] [address] September, [facility] [address] [id number] [address] [place] [address], [place] [address] Aug, [facility] [address] [id number] [address] [place] [address], [place] [address] Aug, [facility] [address] [id number] [facility] [place] [address] Aug, [facility] [address] [id number] [address] [place] [address], [place] [address] Aug, [facility] [address] [id number] [address] [place] [address], [place] [address] Aug, [facility] [address] [id number] [address] [place] [address], [place] [address] Aug, [facility] [address] [id number] [address] [place] [address], [place] [address] Aug, [facility] [address] [id number] [address] [place] [address], [place] [address] Jul, [facility] [address] [id number] [address] [place] [address], [place] [address] Jul, [facility] [address] [id number] [address] [place] [address], [place] [address] Jul, [facility] [address] [id number] [address] [place] [address], [place] [address] Jul, [facility] [address] [id number] [address] [place] [address], [place] [address] Jul, [facility] [address] [id number] [address] [place] [address], [place] [address] Jul, [facility] [address] [id number] [address] [place] [address], [place] [address] Jul, [facility] [address] [id number] [address] [place] [address], [place] [address] Jul, [facility] [address] [id number] [address] [place] [address], [place] [address] Jul, [facility] [address] [id number] [address] [place] [address], [place] [address] Jul, [facility] [address] [id number] [address] [place] [address], [place] [address] 18 Jul, 2013 [facility] [address] [id number] [address] [place] [address], [place] [address] 18 Jul, 2013 [facility] [address] [id number] [address] [place] [address], [place] [address] 14 Jul, 2013 [facility] [address] [id number] [address] [place] [address], [place] [address] 14 Jul, 2013 [facility] [address] [id number] [address] [place] [address], [place] [address] 11 Jul, 2013 [facility] [address] [id number] [address] [place] [address], [place] [address] Jul, [facility] [address] [id number] [address] [place] [address], [place] [address] Jul, [facility] [address] [id number] [address] [place] [address], [place] [address] Jul, [facility] [address] [id number] [address] [place] [address], [place] [address] Jun, [facility] [address] [id number] [address] [place] [address], [place] [address] 31 Jun, 2013 [facility] [address] [id number] [address] [place] [address], [place] [address] 15 Jun, 2013 [facility] [address] [id number] [address] [place] [address], [place] [address] 15 Jun, 2013 [facility] [address] [id number] [address] [place] [address], [place] [address] 14 Jun, 2013 [facility] [address] [id number] [address] [place] [address], [place] [address] 14 Jun, 2013 [facility] [address] [id number] [address] [place] [address], [place] [address] 14 Jun, 2013 [facility] [address] [id number] [address] [place] [address], [place] [address] 14 Jun, 2013 [facility] [address] [id number] [address] [place] [address], [place] [address] 14 Jun, 2013 [facility] [address] [id number] [address] [place] [address], [place] [address] 14 Jun, 2013 [facility] [address] [id number] [address] [place] [address], [place] [address] 27 May, 2013 [facility] [address] [id number] [address] [place] [address], [place] [address] 27 May, 2013 [facility] [address] [id number] [address] [place] [address], [place] [address] 26 May, 2013 [facility] [address] [id number] [address] [place] [address], [place] [address] 19 May, 2013 [facility] [address] [id number] [address] [place] [address], [place] [address] 19 May, 2013 [facility] [address] [id number] [address] [place] [address], [place] [address] 16 May, 2013 [facility] [address] [id number] [address] [place] [address], [place] [address] 16 May, 2013 [facility] [address] [id number] [address] [place] [address], [place] [address] 16 May, 2013 [facility] [address] [id number] [address] [place] [address], [place] [address] 16 May, 2013 [facility] [address] [id number] [address] [place] [address], [place] [address] 13 May, 2013 [facility] [address] [id number] [address] [place] [address], [place] [address] 13 May, 2013 [facility] [address] [id number] [address] [place] [address], [place] [id number] 11 May, 2013 [facility] [address] [id number] [address] [place] [address], [place] [address] 20 Apr, 2013 [facility] [address] [id number] [address] [place] [id number] Apr, [facility] [address] [id number] [address] [place] [address], [place] [address] 18 Apr, 2013 [facility] [address] [id number] [address] [place] [id number] Apr, [facility] [address] [id number] [address] [place] [id number] Apr, [facility] [address] [id number] [address] [place] [id number] 08 Apr, 2013 [facility] [address] [id number] [address] [place] [address], [place] [address] 08 Apr, 2013 [facility] [address] [id number] [address] [place] [id number] Apr, [facility] [address] [id number] [address] [place] [id number] Apr, [facility] [address] [id number] [address] [place] [id number] Apr, [facility] [address] [id number] [address] [place] [id number] Apr, [facility] [address] [id number] [address] [place] [id number] Mar, [facility] [address] [id number] [address] [place] [id number] Mar, [facility] [address] [id number] [address] [place] [id number] Mar, [facility] [address] [id number] [address] [place] [id number] Mar, [facility] [address] [id number] [address] [place] [id number] Mar, [facility] [address] [id number] [address] [place] [id number] Mar, [facility] [address] [id number] [address] [place] [address], [place] [address] Mar, [facility] [address] [id number] [address] [place] [address], [place] [address] Mar, [facility] [address] [id number] [address] [place] [address], [place] [address] Mar, [facility] [address] [id number] [address] [place] [address], [place] [address] Mar, [facility] [address] [id number] [address] [place] [address], [place] [address] 15 Mar, 2013 [facility] [address] [id number] [address] [place] [address], [place] [address] Mar, [facility] [address] [id number] [address] [place] [address], [place] [address] 30 Jan, 2013 [facility] [address] [id number] [address] [place] [address], [place] [address] Jan, [facility] [address] [id number] [address] [place] [address], [place] [address] 20 Jan, 2013 [facility] [address] [id number] [address] [place] [address], [place] [address] Jan, [facility] [address] [id number] [address] [place] [address], [place] [address] Dec, [facility] [address] [id number] [address] [place] [address], [place] [address] Dec, [facility] [address] [id number] [address] [place] [address], [place] [id number] Dec, [facility] [address] [id number] [address] [place] [address], [place] [id number] Dec, [facility] [address] [id number] [address] [place] [address], [place] [id number] Dec, [facility] [address] [id number] [address] [place] [address], [place] [id number] Dec, [facility] [address] [id number] [address] [place] [address], [place] [id number] Dec, [facility] [address] [id number] [address] [place] [address], [place] [id number] Dec, [facility] [address] [id number] [address] [place] [address], [place] [id number] Dec, [facility] [address] [id number] [address] [place] [address], [place] [id number] Nov, [facility] [address] [id number] [address] [place] [address], [place] [id number] Nov, [facility] [address] [id number] [address] [place] [address], [place] [id number] Nov, [facility] [address] [id number] [address] [place] [address], [place] [id number] Nov, [facility] [address] [id number] [address] [place] [address], [place] [id number] Nov, [facility] [address] [id number] [address] [place] [address], [place] [id number] Nov, [facility] [address] [id number] [address] [place] [address], [place] [id number] Nov, [facility] [address] [id number] [address] [place] [address], [place] [id number] Nov, [facility] [address] [id number] [address] [place] [address], [place] [id number] Oct, [facility] [address] [id number] [address] [place] [address], [place] [id number] Oct, [facility] [address] [id number] [address] [place] [address], [place] [id number] Oct, [facility] [address] [id number] [address] [place] [address], [place] [id number] Oct, [facility] [address] [id number] [address] [place] [address], [place] [id number] Oct, [facility] [address] [id number] [address] [place] [address], [place] [id number] 21 Oct, 2012 [facility] [address] [id number] [address] [place] [address], [place] [id number] 20 Oct, 2012 [facility] [address] [id number] [address] [place] [address], [place] [id number] 20 Oct, 2012 [facility] [address] [id number] [address] [place] [address], [place] [id number] 19 Oct, 2012 [facility] [address] [id number] [address] [place] [address], [place] [id number] 18 Oct, 2012 [facility] [address] [id number] [address] [place] [address], [place] [id number] 17 Oct, 2012 [facility] [address] [id number] [address] [place] [address], [place] [id number] 14 Oct, 2012 [facility] [address] [id number] [address] [place] [address], [place] [id number] 07 Oct, 2012 [facility] [address] [id number] [address] [place] [address], [place] [id number] 30 Sep, 2012 [facility] [address] [id number] [address] [place] [address], [place] [address] September, [facility] [address] [id number] [address] [place] [address], [place] [id number] 15 Sep, 2012 [facility] [address] [id number] [address] [place] [address], [place] [id number] 25 Aug, 2012 [facility] [address] [id number] [address] [place] [address], [place] [id number] 24 Aug, 2012 [facility] [address] [id number] [address] [place] [address], [place] [id number] 18 Aug, 2012 [facility] [address] [id number] [address] [place] [address], [place] [id number] 18 Aug, 2012 [facility] [address] [id number] [address] [place] [address], [place] [id number] 18 Aug, 2012 [facility] [address] [id number] [address] [place] [address], [place] [id number] Aug, [facility] [address] [id number] [address] [place] [address], [place] [id number] Aug, [facility] [address] [id number] [address] [place] [address], [place] [id number] Jul, [facility] [address] [id number] [address] [place] [address], [place] [id number] Jul, [facility] [address] [id number] [address] [place] [address], [place] [id number] Jul, [facility] [address] [id number] [address] [place] [address], [place] [id number] Jul, [facility] [address] [id number] [address] [place] [address], [place] [id number] Jul, [facility] [address] [id number] [address] [place] [address], [place] [id number] Jul, [facility] [address] [id number] [address] [place] [address], [place] [id number] Jul, [facility] [address] [id number] [address] [place] [address], [place] [id number] Jul, [facility] [address] [id number] [address] [place] [address], [place] [id number] Jul, [facility] [address] [id number] [address] [place] [address], [place] [id number] Jul, [facility] [address] [id number] [address] [place] [address], [place] [id number] 11 Jul, 2012 [facility] [address] [address] [id number] [address] [place] [address], [place] [id number] 06 Jul, 2012 [facility] [address] [id number] [address] [place] [address] [place] [id number] Jul, [facility] [address] [id number] [address] [place] [address], [place] [address] Jun, [facility] [address] [id number] [address] [place] [address], [place] [id number] Jun, [facility] [address] [id number] [address] [place] [address], [place] [id number] Jun, [facility] [address] [id number] [address] [place] [address], [place] [id number] 17 Jun, 2012 [facility] [address] [id number] [address] [place] [address], [place] [id number] 15 Jun, 2012 [facility] [address] [id number] [address] [place] [address], [place] [id number] Jun, [facility] [address] [id number] [address] [place] [address], [place] [id number] Jun, [facility] [address] [id number] [address] [place] [address], [place] [address] May, [facility] [address] [id number] [address] [place] [address], [place] [address] May, [facility] [address] [id number] [address] [place] [address], [place] [id number] May, [facility] [address] [id number] [address] [place] [address], [place] [address] May, [facility] [address] [id number] [address] [place] [address], [place] [id number] May, [facility] [address] [id number] [address] [place] [address], [place] [id number] May, [facility] [address] [id number] [address] [place] [address], [place] [id number] May, [facility] [address] [id number] [address] [place] [address], [place] [id number] May, [facility] [address] [id number] [address] [place] [address], [place] [id number] May, [facility] [address] [id number] [address] [place] [address], [place] [address] May, [facility] [address] [id number] [address] [place] [address], [place] [address] Apr, [facility] [address] [id number] [address] [place] [address], [place] [address] Apr, [facility] [address] [id number] [address] [place] [address], [place] [address] Apr, [facility] [address] [id number] [address] [place] [address], [place] [id number] Apr, [facility] [address] [id number] [address] [place] [address], [place] [id number] Apr, [facility] [address] [id number] [address] [place] [address], [place] [id number] Apr, [facility] [address] [id number] [address] [place] [address], [place] [id number] Apr, [facility] [address] [id number] [address] [place] [address], [place] [address] Apr, [facility] [address] [id number] [address] [place] [address], [place] [address] Apr, [facility] [address] [id number] [address] [place] [address], [place] [address] Apr, [facility] [address] [id number] [address] [place] [address], [place] [address] Apr, [facility] [address] [id number] [address] [place] [address], [place] [id number] Apr, [facility] [address] [id number] [address] [place] [address], [place] [id number] Mar, [facility] [address] [id number] [address] [place] [address], [place] [id number] Mar, 2011 [facility] [address] [id number] [address] [place] [address], [place] [id number] 30 Mar, 2011 [facility] [address] [id number] [address] [place] [id number] Mar, 2011 [facility] [address] [id number] [address] [place] [phone] Mar, 2011 [facility] [address] [id number] [address] [place] [id number] Mar, 2011 [facility] [address] [id number] [address] [place] [address], [place] [id number] Mar, 2011 [facility] [address] [id number] [address] [place] [phone] Mar, 2011 [facility] [address] [id number] [address] [place] [phone] Mar, 2011 [facility] [address] [id number] [address] [place] [phone] Mar, [facility] [address] [id number] [address] [place] [id number] Mar, [facility] [address] [id number] [address] [place] [phone] Mar, [facility] [address] [id number] [address] [place] [phone] Mar, [facility] [address] [id number] [address] [place] [phone] Mar, [facility] [address] [id number] [address] [place] [address], [place] [phone] Mar, [facility] [address] [id number] [address] [place] [id number] Mar, [facility] [address] [id number] [address] [place] [phone] Jan, [facility] [address] [id number] [address] [place] [address], [place] [id number] 24 Sep, 2011 [facility] [address] [id number] [address] [place] [address], [place] [id number] 22 Sep, 2011 [facility] [address] [id number] [address] [place] [address], [place] [id number] 22 Jan, 2011 [facility] [address] [id number] [address] [place] [address], [place] [id number] 21 Jan, 2011 [facility] [address] [id number] [address] [place] [address], [place] [id number] 18 Sep, 2011 [facility] [address] [id number] [address] [place] [address], [place] [id number] 14 Jan, 2011 [facility] [address] [id number] [address] [place] [address], [place] [id number] 07 Jan, 2012 [facility] [address] [id number] [address] [place] [address], [place] [id number] 15 Dec, 2011 [facility] [address] [id number] [address] [place] [address], [place] [id number] 10 Dec, 2011 [facility] [address] [id number] [address] [place] [address], [place] [id number] 09 Dec, 2011 [facility] [address] [id number] [address] [place] [address], [place] [id number] 08 Dec, 2011 [facility] [address] [id number] [address] [place] [address], [place] [id number] Dec, [facility] [address] [id number] [address] [place] [address], [place] [id number] Dec, [facility] [address] [id number] [address] [place] [address], [place] [address] Dec, [facility] [address] [id number] [address] [place] [address], [place] [address] Nov, [facility] [address] [id number] [address] [place] [address], [place] [id number] Oct, [facility] [address] [id number] [address] [place] [address], [place] [id number] 05 Aug, 2011 [facility] [address] [id number] [address] [place] [address], [place] [id number] 22 Jul, 2011 [facility] [address] [id number] [address] [place] [address], [place] [id number] 19 Jul, 2011 [facility] [address] [id number] [address] [place] [address], [place] [id number] 16 Jul, 2011 [facility] [address] [id number] [address] [place] [address], [place] [address] 14 Jul, 2011 [facility] [address] [id number] [address] [place] [address], [place] [id number] 07 Jul, 2011 [facility] [address] [id number] [address] [place] [address], [place] [id number] 02 Jul, 2011 [facility] [address] [id number] [address] [place] [address], [place] [id number] 21 Jul, 2011 [facility] [address] [id number] [address] [place] [address], [place] [address] 15 Jul, 2011 [facility] [address] [id number] [address] [place] [address], [place] [id number] 13 Jul, 2011 [facility] [address] [id number] [address] [place] [address], [place] [id number] 03 Jul, 2011 [facility] [address] [id number] [address] [place] [address], [place] [address] 02 Jul, 2011 [facility] [address] [id number] [address] [place] [address], [place] [id number] 24 Jun, 2011 [facility] [address] [id number] [address] [place] [address], [place] [address] 24 Jun, 2011 [facility] [address] [id number] [address] [place] [address], [place] [id number] 13 Jun, 2011 [facility] [address] [id number] [address] [place] [address], [place] [address] 11 Jun, 2011 [facility] [address] [id number] [address] [place] [address], [place] [address] Jun, [facility] [address] [id number] [address] [place] [address], [place] [id number] Jun, [facility] [address] [id number] [address] [place] [address], [place] [id number] Jun, [facility] [address] [id number] [address] [place] [address], [place] [address] May, [facility] [address] [id number] [address] [place] [address], [place] [address] May, [facility] [address] [id number] [address] [place] [address], [place] [id number] May, [facility] [address] [id number] [address] [place] [address], [place] [id number] May, [facility] [address] [id number] [address] [place] [address], [place] [address] 14 May, 2011 [facility] [address] [id number] [address] [place] [address], [place] [id number] May, [facility] [address] [id number] [address] [place] [address], [place] [phone] May, [facility] [address] [id number] [address] [place] [address], [place] [id number] May, [facility] [address] [id number] [address] [place] [address], [place] [id number] May, [facility] [address] [id number] [address] [place] [address], [place] [id number] May, [facility] [address] [id number] [address] [place] [address], [place] [id number] 15 Apr, 2011 [facility] [address] [id number] [address] [place] [address], [place] [id number] 15 Apr, 2011 [facility] [address] [facility] [place] [id number] [address] [place] [phone] Apr, [facility] [address] [facility] [place] [id number] [address] [place] [id number] Apr, [facility] [address] [facility] [place] [id number] [address] [place] [id number] Mar, [facility] [address] [facility] [place] [id number] [address] [place] [id number] Mar, [facility] [address] [facility] [place] [id number] [address] [place] [id number] Mar, [facility] [address] [facility] [place] [id number] [address] [place] [id number] Mar, IMMUNIZATIONS No Known Immunizations SOCIAL HISTORY [...]
--- OUTSIDE RECORDS SUMMARY | 2020-01-03 17:51 | XMS REPORT ---
Author Author Pattie Moffett Doctor Organization [facility] Address Unknown Phone Unavailable Care Team Providers Care Neuro Ophthalmologist Name Role Phone Migration, Doctor Unavailable Unavailable PROBLEMS Type Condition ICD9-CM Code LPG51-MD Code Onset Dates Condition S tatus SNOMED Code Problem FRANCIS (generalized anxiety disorder) F41.1 Active 16518119 Problem Thoracic disc herniation M51.24 Activ e 748012345 Problem Major depressive disorder in partial remission F32 .4 Active 88348732 Problem Seizure disorder G40.909 Active 128 404413 Problem Conversion disorder (or hysterical neurosis, conversion ty pe) F44.9 Active 09834237 Problem Constipation, unspecified constipation type K59.00 Active 56391499 Problem Mild episode of recurrent major depressive disorder F33.0 Active 400320837 Problem Restless leg syndrome G25.81 Active 67676022 Problem Nonadherence to medication Z91.14 Act vivian 102128971 Problem Slow transit constipation K59.01 Acti ve 55739422 Problem Atrophic vaginitis N95.2 Active 5 1186781 Problem Paroxysmal tachycardia I47.9 Active 00067982 Problem Other chronic pain G89.29 Active 8 5074816 Problem Mild intermittent asthma without complication J45. 20 Active 885666980 Problem Obesity (BMI 30.0-34.9) E66.9 Active [id number] Problem High blood pressure I10 Active 07005078 ALLERGIES No Information ENCOUNTERS Encounter Location Date Diagnosis [facility] [address] [facility] [id number] [address] [place] [id number] 08 Nov, 2019 [facility] [address] [facility] [id number] [address] [place] [id number] Nov, [address] [id number] [id number] 26 Oct, 2019 Breast cancer screening Z12.[address] [id number] [address] 08 Oct, 2019 Breast cancer screening Z12. 39 [facility] [address] [id number] [address] [place] [id number] Oct, [facility] [address] [id number] [address] [place] [phone] Oct, [facility] [address] [id number] [address] [place] [phone] September, [facility] [address] [id number] [address] [place] [address] September, [facility] [address] [id number] [address] [place] [address] September, Well woman exam with routine gynecological exam Z01.419 and Atrophic vaginitis N95.2 [facility] [address] [id number] [address] [place] [id number] September, Major depressive disorder in partial remission F32.4 ; FRANCIS (generalized anxiety disorder) F41.1 ; Restless leg syndrome G25.81 and Nonadherence to medication Z91.14 [facility] [address] [id number] [address] [place] [id number] September, [facility] [address] [id number] [address] [place] [phone] Aug, [facility] [address] [facility] [id number] [address] [place] [id number] Aug, Dental examination Z01.20 [facility] [address] [id number] [address] [place] [id number] Aug, Dental examination Z01.20 an d Caries K02.9 [facility] [address] [id number] [address] [place] [phone] Aug, [facility] [address] [id number] [address] [place] [phone] Aug, [facility] [address] [id number] [address] [place] [phone] Aug, Other chronic pain G89.29 an d Back muscle spasm M62.830 [facility] [address] [id number] [address] [place] [id number] 07 Aug, 2019 [facility] [address] [id number] [address] [place] [id number] Aug, Major depressive disorder in partial remission F32.4 ; FRANCIS (generalized anxiety disorder) F41.1 ; Restless leg syndrome G25.81 and Nonadherence to medication Z91.14 [facility] [address] [id number] [address] [place] [id number] Aug, [facility] [address] [id number] [address] [place] [phone] Jul, [facility] [address] [id number] [address] [place] [id number] Jul, [facility] [address] [id number] [address] [place] [id number] Jul, Major depressive disorder in partial remission F32.4 ; FRANCIS (generalized anxiety disorder) F41.1 ; Restless leg syndrome G25.81 and High blood pressure I10 [facility] [address] [id number] [address] [place] [id number] 17 Jul, 2019 [facility] [address] [id number] [address] [place] [phone] Jul, [facility] [address] [id number] [address] [place] [phone] Jun, [facility] [address] [id number] [address] [place] [id number] May, [facility] [address] [id number] [address] [place] [id number] Apr, [facility] [address] [id number] [address] [place] [phone] Apr, [facility] [address] [id number] [address] [place] [phone] Mar, [facility] [address] [id number] [address] [place] [id number] Mar, Major depressive disorder in partial remission F32.4 ; FRANCIS (generalized anxiety disorder) F41.1 and Restless leg syndrome G25.81 [facility] [address] [id number] [address] [place] [id number] Mar, Obesity (BMI 30.0-34.9) E66. 9 [facility] [address] [id number] [address] [place] [phone] Jan, [facility] [address] [id number] [address] [place] [phone] Jan, Burn T30.0 [facility] [address] [id number] [address] [place] [phone] Dec, [facility] [address] [id number] [address] [place] [phone] Nov, [facility] [address] [id number] [address] [place] [id number] Nov, [facility] [address] [id number] [address] [place] [id number] Nov, Dental examination Z01.20 [facility] [address] [id number] [address] [place] [phone] September, [facility] [address] [id number] [address] [place] [id number] September, Decay, teeth K02.9 and Denta l examination Z01.20 [facility] [address] [id number] [address] [place] [id number] September, Dental examination Z01.20 [facility] [address] [id number] [address] [place] [id number] September, FRANCIS (generalized anxiety dis order) F41.1 ; Major depressive disorder in partial remission F32.4 and Restless leg syndrome G25.81 [facility] [address] [id number] Aug, [facility] [address] [address] Jul, [facility] [address] [place] [id number] [place] [phone] Jul, Encounter to discuss test re sults Z71.2 [facility] [address] [address] Jul, Pelvic pain R10.2 ; Screenin g for breast cancer Z12.31 and Obesity (BMI 30.0-34.9) E66.9 [place] [address] [address] Jul, Mild intermittent asthma wit hout complication J45.20 [place] [address] [address] Jul, Major depressive disorder in partial remission F32.4 and FRANCIS (generalized anxiety disorder) F41.1 [place] [address] [address] Jul, [facility] [address] [address] Jun, [place] [address] [id number] May, Major depressive disorder in partial remission F32.4 ; FRANCIS (generalized anxiety disorder) F41.1 and Restless leg syndrome G25.81 [place] [address] [address] Apr, [facility] [address] [place] [id number] [place] [phone] Mar, [facility] [address] [place] [id number] [address] [place] [id number] 21 Sep, 2018 Pain in thoracic spine M54.6 and Other chronic pain G89.29 [facility] [address] [id number] [address] [place] [id number] 14 Jan, 2018 [facility] [address] [id number] [address] [place] [phone] 11 Jan, 2018 Mild episode of recurrent ma saray depressive disorder F33.0 ; FRANCIS (generalized anxiety disorder) F41.1 and Restless leg syndrome G25.81 [facility] [address] [id number] [address] [place] [phone] Dec, [facility] [address] [id number] [address] [place] [address] Dec, Hospital discharge follow-up Z09 [facility] [address] [id number] [address] [place] [phone] Nov, [facility] [address] [id number] [address] [place] [phone] Nov, [facility] [address] [id number] [address] [place] [phone] September, [facility] [address] [id number] [address] [place] [id number] September, [facility] [address] [id number] [address] [place] [id number] September, Major depressive disorder in partial remission F32.4 ; FRANCIS (generalized anxiety disorder) F41.1 and Restless leg syndrome G25.81 [facility] [address] [id number] [address] [place] [phone] September, [facility] [address] [id number] [address] [place] [phone] Jul, [facility] [address] [id number] [address] [place] [phone] Jul, Dorsalgia, unspecified M54.9 [facility] [address] [id number] [address] [place] [id number] Jul, Mild episode of recurrent ma saray depressive disorder F33.0 and FRANCIS (generalized anxiety disorder) F41.1 [facility] [address] [id number] [address] [place] [phone] May, [facility] [address] [facility] [id number] [address] [place] [id number] May, Dysuria R30.0 and Acute cyst itis with hematuria N30.01 [facility] [address] [id number] [address] [place] [address] Apr, [place] [address] [facility] [id number] [address] [place] [phone] Apr, Major depressive disorder in partial remission F32.4 and FRANCIS (generalized anxiety disorder) F41.1 [place] [address] [facility] [id number] [address] [place] [phone] Mar, Paroxysmal tachycardia I47.9 [place] [address] [facility] [id number] [address] [place] [id number] Mar, Paroxysmal tachycardia I47.9 and Pain of left lower extremity M79.605 [place] [address] [facility] [id number] [address] [place] [phone] Mar, FRANCIS (generalized anxiety dis order) F41.1 and Major depressive disorder in partial remission F32.4 [place] [address] [facility] [id number] [address] [place] [phone] Jan, [facility] [address] [id number] [address] [place] [phone] Jan, [place] [address] [facility] [id number] [address] [place] [phone] Jan, [facility] [address] [facility] [id number] [address] [place] [id number] Dec, Constipation, unspecified co nstipation type K59.00 [place] [address] [facility] [id number] [address] [place] [phone] Dec, [facility] [address] [id number] [address] [place] [id number] Nov, [facility] [address] [facility] [id number] [address] [place] [phone] Nov, Major depressive disorder in partial remission F32.4 and FRANCIS (generalized anxiety disorder) F41.1 [facility] [address] [facility] [id number] [address] [place] [phone] Oct, Abdominal pain R10.9 and Slo w transit constipation K59.01 [place] [address] [facility] [id number] [address] [place] [id number] Aug, Major depressive disorder in partial remission F32.4 ; FRANCIS (generalized anxiety disorder) F41.1 ; Conversion disorder (or hysterical neurosis, conversion type) F44.9 ; Dorsalgia, unspecified M54.9 and Long-term use of high-risk medication Z79.899 [place] [id number] [facility] [id number] [address] [place] [id number] Aug, [place] [address] [facility] [id number] [address] [place] [phone] Jul, Paroxysmal tachycardia I47.9 [place] [id number] [facility] [id number] [address] [place] [address] Jul, Paroxysmal tachycardia I47.9 [place] [address] [facility] [id number] [address] [place] [phone] Jun, [facility] [address] [facility] [id number] [address] [place] [address] Jun, Major depressive disorder in partial remission F32.4 ; FRANCIS (generalized anxiety disorder) F41.1 and Conversion disorder (or hysterical neurosis, conversion type) F44.9 [facility] [address] [facility] [id number] [address] [place] [phone] May, Pelvic pain R10.2 [facility] [address] [id number] [address] [place] [id number] 30 Apr, 2016 Gastroenteritis K52.9 [facility] [address] [id number] [address] [place] [id number] 17 Apr, 2016 Blood in urine R31.9 and Acu te cystitis with hematuria N30.01 [facility] [address] [id number] [address] [place] [id number] Apr, Major depressive disorder in partial remission F32.4 ; FRANCIS (generalized anxiety disorder) F41.1 and Conversion disorder (or hysterical neurosis, conversion type) F44.9 [facility] [address] [id number] [address] [place] [address] Apr, [facility] [address] [facility] [id number] [address] [place] [address] Apr, Abnormal mammogram R92.8 [facility] [address] [id number] [address] [place] [address] Mar, [facility] [address] [id number] [address] [place] [address] Mar, Gastroenteritis K52.9 and Se izure disorder G40.909 [facility] [address] [id number] [address] [place] [address] Dec, [facility] [address] [id number] [address] [place] [address] Dec, Other headache syndrome G44. 89 [facility] [address] [id number] [address] [place] [phone] Dec, [facility] [address] [facility] [id number] [address] [place] [address] Dec, Thoracic disc herniation M51 .24 [facility] [address] [id number] [address] [place] [id number] Dec, [facility] [address] [facility] [id number] [address] [place] [address] Nov, Major depressive disorder in partial remission F32.4 and FRANCIS (generalized anxiety disorder) F41.1 [facility] [address] [id number] [address] [place] [address] Nov, [facility] [address] [id number] [address] [place] [address] Nov, Dorsalgia, unspecified M54.9 [facility] [address] [id number] [address] [place] [id number] Oct, [facility] [address] [id number] [address] [place] [address] September, [facility] [address] [id number] [address] [place] [address] Aug, [facility] [address] [id number] [address] [place] [id number] Aug, Major depressive disorder in partial remission F32.4 and FRANCIS (generalized anxiety disorder) F41.1 [facility] [address] [id number] [address] [place] [id number] Aug, [facility] [address] [id number] [address] [place] [address] Jul, Abnormal mammogram R92.8 [facility] [address] [id number] [address] [place] [id number] Jul, [facility] [address] [id number] [address] [place] [id number] Jul, [facility] [address] [id number] [address] [place] [id number] Jul, [facility] [address] [id number] [address] [place] [phone] Jul, [facility] [address] [id number] [address] [place] [id number] Jul, [facility] [address] [id number] [address] [place] [id number] Jul, [facility] [address] [id number] [address] [place] [phone] Jun, Major depressive disorder in partial remission F32.4 and FRANCIS (generalized anxiety disorder) F41.1 [facility] [address] [id number] [address] [place] [id number] Jun, [facility] [address] [id number] [address] [place] [phone] May, [facility] [address] [id number] [address] [place] [phone] Apr, [facility] [address] [id number] [address] [place] [id number] Mar, Major depressive disorder, r ecurrent episode, moderate F33.1 ; PTSD (post-traumatic stress disorder) F43.10 and FRANCIS (generalized anxiety disorder) F41.1 [facility] [address] [id number] [address] [place] [address] Mar, [facility] [address] [id number] [address] [place] [address] Mar, [facility] [address] [id number] [address] [place] [id number] Mar, [facility] [address] [id number] [address] [place] [id number] Mar, [facility] [address] [id number] [address] [place] [phone] 23 Jan, 2015 [facility] [address] [id number] [address] [place] [id number] 15 Jan, 2015 [facility] [address] [id number] [address] [place] [id number] 15 Jan, 2015 [facility] [address] [facility] [id number] [address] [place] [address] 14 Jan, 2015 Thoracic disc herniation 722 .11 [facility] [address] [id number] [address] [place] [phone] Dec, [facility] [address] [id number] [address] [place] [id number] Dec, [facility] [address] [id number] [address] [place] [id number] Dec, [facility] [address] [id number] [address] [place] [id number] Nov, [facility] [address] [id number] [address] [place] [address] Nov, Generalized anxiety disorder 300.02 ; Posttraumatic stress disorder 309.81 and Major depressive disorder, recurrent episode, moderate 296.32 [facility] [address] [id number] [address] [place] [phone] Nov, [facility] [address] [id number] [address] [place] [id number] Nov, [facility] [address] [id number] [address] [place] [phone] Oct, [facility] [address] [id number] [address] [place] [phone] Oct, [facility] [address] [id number] [address] [place] [id number] Oct, [facility] [address] [id number] [address] [place] [id number] September, [facility] [address] [id number] [address] [place] [phone] September, [facility] [address] [id number] [address] [place] [id number] Aug, [facility] [address] [id number] [address] [place] [id number] Aug, [facility] [address] [id number] [address] [place] [id number] Jul, [facility] [address] [id number] [address] [place] [address], [place] [id number] Jul, [facility] [address] [id number] [address] [place] [address], [place] [id number] Jul, [facility] [address] [id number] [address] [place] [address], [place] [id number] 17 Jul, 2014 [facility] [address] [id number] [address] [place] [address], [place] [id number] Jul, [facility] [address] [id number] [address] [place] [address], [place] [id number] Jul, [facility] [address] [id number] [address] [place] [address], [place] [id number] Jul, [facility] [address] [id number] [address] [place] [address], [place] [id number] Jul, [facility] [address] [id number] [address] [place] [address], [place] [id number] Jul, [facility] [address] [id number] [address] [place] [address], [place] [id number] Jul, [facility] [address] [id number] [address] [place] [address], [place] [address] Jun, [facility] [address] [id number] [address] [place] [address], [place] [id number] Jun, [facility] [address] [id number] [address] [place] [address], [place] [id number] Jun, [facility] [address] [id number] [address] [place] [address], [place] [id number] May, [facility] [address] [id number] [address] [place] [address], [place] [id number] Apr, [facility] [address] [id number] [address] [place] [address], [place] [id number] Apr, [facility] [address] [id number] [address] [place] [address], [place] [id number] Apr, [facility] [address] [id number] [address] [place] [address], [place] [id number] Apr, [facility] [address] [id number] [address] [place] [address], [place] [address] Apr, [facility] [facility] [address] [id number] [address] [place] [address], [place] [address] Apr, [facility] [address] [id number] [address] [place] [address], [place] [address] Apr, [facility] [address] [id number] [address] [place] [address], [place] [address] Apr, [facility] [address] [id number] [address] [place] [address], [place] [address] Mar, [facility] [address] [id number] [address] [place] [address], [place] [address] Mar, [facility] [address] [id number] [address] [place] [address], [place] [address] Mar, [facility] [address] [id number] [address] [place] [address], [place] [address] Mar, [facility] [address] [id number] [address] [place] [address], [place] [address] Mar, [facility] [address] [id number] [address] [place] [address], [place] [address] Mar, [facility] [address] [id number] [address] [place] [address], [place] [address] Mar, [facility] [address] [id number] [address] [place] [address], [place] [address] Mar, [facility] [address] [id number] [address] [place] [address], [place] [address] Mar, [facility] [address] [id number] [address] [place] [address], [place] [address] Mar, [facility] [address] [id number] [address] [place] [address], [place] [address] Mar, 2013 [facility] [address] [id number] [address] [place] [address], [place] [address] Mar, [facility] [address] [id number] [address] [place] [address], [place] [address] 14 Mar, 2014 [facility] [address] [id number] [address] [place] [address], [place] [address] Mar, 2013 [facility] [address] [id number] [address] [place] [address], [place] [address] Mar, [facility] [address] [id number] [address] [place] [address], [place] [address] Mar, 2013 [facility] [address] [id number] [address] [place] [address], [place] [address] Mar, 2013 [facility] [address] [id number] [address] [place] [address], [place] [address] 19 Sep, 2013 [facility] [address] [id number] [address] [place] [address], [place] [address] 19 Sep, 2013 [facility] [address] [id number] [address] [place] [address], [place] [address] 09 Sep, 2013 [facility] [address] [id number] [address] [place] [address], [place] [address] 09 Sep, 2013 [facility] [address] [id number] [address] [place] [address], [place] [address] 05 Sep, 2013 [facility] [address] [id number] [address] [place] [address], [place] [address] 05 Sep, 2013 [facility] [address] [id number] [address] [place] [address], [place] [address] 05 Sep, 2013 [facility] [address] [id number] [address] [place] [address], [place] [address] 05 Sep, 2013 [facility] [address] [id number] [address] [place] [address], [place] [address] Jan, [facility] [address] [id number] [address] [place] [address], [place] [address] Jan, [facility] [address] [id number] [address] [place] [address], [place] [address] Jan, [facility] [address] [id number] [address] [place] [address], [place] [address] Jan, [facility] [address] [id number] [address] [place] [address], [place] [address] Jan, [facility] [address] [id number] [address] [place] [address], [place] [address] Dec, [facility] [address] [id number] [address] [place] [address], [place] [address] Dec, [facility] [address] [id number] [address] [place] [address], [place] [address] Dec, [facility] [address] [id number] [address] [place] [address], [place] [address] Dec, [facility] [address] [id number] [address] [place] [address], [place] [address] Dec, [facility] [address] [id number] [address] [place] [address], [place] [address] Dec, [facility] [address] [place] [id number] Dec, [facility] [address] [place] [id number] Dec, [facility] [address] [id number] [address] [place] [address], [place] [address] Dec, [facility] [address] [id number] [address] [place] [address], [place] [address] Dec, [facility] [address] [id number] [address] [place] [address], [place] [address] Dec, [facility] [address] [id number] [address] [place] [address], [place] [address] Dec, [facility] [address] [id number] [facility] [place] [address] Nov, [facility] [address] [id number] [facility] [place] [address] Nov, [facility] [address] [id number] [facility] [place] [address] Nov, [facility] [address] [id number] [address] [place] [address], [place] [address] Nov, [facility] [address] [id number] [address] [place] [address], [place] [address] Nov, [facility] [address] [id number] [address] [place] [address], [place] [address] Nov, [facility] [address] [id number] [address] [place] [address], [place] [address] Nov, [facility] [address] [id number] [address] [place] [address], [place] [address] Nov, [facility] [address] [id number] [address] [place] [address], [place] [address] Nov, [facility] [address] [id number] [address] [place] [address], [place] [address] Nov, [facility] [address] [id number] [address] [place] [address], [place] [address] Nov, [facility] [address] [id number] [address] [place] [address], [place] [address] Nov, [facility] [address] [id number] [address] [place] [address], [place] [address] Nov, [facility] [address] [id number] [address] [place] [address], [place] [address] Oct, [facility] [address] [id number] [address] [place] [address], [place] [address] Oct, [facility] [address] [id number] [facility] [place] [address] Oct, [facility] [address] [id number] [address] [place] [address], [place] [address] Oct, [facility] [address] [id number] [address] [place] [address], [place] [address] Oct, [facility] [address] [id number] [address] [place] [address], [place] [address] Oct, [facility] [address] [id number] [address] [place] [address], [place] [address] Oct, [facility] [address] [id number] [address] [place] [address], [place] [address] Oct, [facility] [address] [id number] [address] [place] [address], [place] [address] Oct, [facility] [address] [id number] [address] [place] [address], [place] [address] Oct, [facility] [address] [id number] [address] [place] [address], [place] [address] Oct, [facility] [address] [id number] [address] [place] [address], [place] [address] Oct, [facility] [address] [id number] [address] [place] [address], [place] [address] September, [facility] [address] [id number] [address] [place] [address], [place] [address] September, [facility] [address] [id number] [address] [place] [address], [place] [address] September, [facility] [address] [id number] [address] [place] [address], [place] [address] September, [facility] [address] [id number] [address] [place] [address], [place] [address] Aug, [facility] [address] [id number] [address] [place] [address], [place] [address] Aug, [facility] [address] [id number] [facility] [place] [address] Aug, [facility] [address] [id number] [address] [place] [address], [place] [address] Aug, [facility] [address] [id number] [address] [place] [address], [place] [address] Aug, [facility] [address] [id number] [address] [place] [address], [place] [address] Aug, [facility] [address] [id number] [address] [place] [address], [place] [address] Aug, [facility] [address] [id number] [address] [place] [address], [place] [address] Jul, [facility] [address] [id number] [address] [place] [address], [place] [address] Jul, [facility] [address] [id number] [address] [place] [address], [place] [address] Jul, [facility] [address] [id number] [address] [place] [address], [place] [address] Jul, [facility] [address] [id number] [address] [place] [address], [place] [address] Jul, [facility] [address] [id number] [address] [place] [address], [place] [address] Jul, [facility] [address] [id number] [address] [place] [address], [place] [address] Jul, [facility] [address] [id number] [address] [place] [address], [place] [address] Jul, [facility] [address] [id number] [address] [place] [address], [place] [address] Jul, [facility] [address] [id number] [address] [place] [address], [place] [address] Jul, [facility] [address] [id number] [address] [place] [address], [place] [address] 18 Jul, 2013 [facility] [address] [id number] [address] [place] [address], [place] [address] 18 Jul, 2013 [facility] [address] [id number] [address] [place] [address], [place] [address] 14 Jul, 2013 [facility] [address] [id number] [address] [place] [address], [place] [address] 14 Jul, 2013 [facility] [address] [id number] [address] [place] [address], [place] [address] 11 Jul, 2013 [facility] [address] [id number] [address] [place] [address], [place] [address] Jul, [facility] [address] [id number] [address] [place] [address], [place] [address] Jul, [facility] [address] [id number] [address] [place] [address], [place] [address] Jul, [facility] [address] [id number] [address] [place] [address], [place] [address] Jun, [facility] [address] [id number] [address] [place] [address], [place] [address] 31 Jun, 2013 [facility] [address] [id number] [address] [place] [address], [place] [address] 15 Jun, 2013 [facility] [address] [id number] [address] [place] [address], [place] [address] 15 Jun, 2013 [facility] [address] [id number] [address] [place] [address], [place] [address] 14 Jun, 2013 [facility] [address] [id number] [address] [place] [address], [place] [address] 14 Jun, 2013 [facility] [address] [id number] [address] [place] [address], [place] [address] 14 Jun, 2013 [facility] [address] [id number] [address] [place] [address], [place] [address] 14 Jun, 2013 [facility] [address] [id number] [address] [place] [address], [place] [address] 14 Jun, 2013 [facility] [address] [id number] [address] [place] [address], [place] [address] 14 Jun, 2013 [facility] [address] [id number] [address] [place] [address], [place] [address] 27 May, 2013 [facility] [address] [id number] [address] [place] [address], [place] [address] 27 May, 2013 [facility] [address] [id number] [address] [place] [address], [place] [address] 26 May, 2013 [facility] [address] [id number] [address] [place] [address], [place] [address] 19 May, 2013 [facility] [address] [id number] [address] [place] [address], [place] [address] 19 May, 2013 [facility] [address] [id number] [address] [place] [address], [place] [address] 16 May, 2013 [facility] [address] [id number] [address] [place] [address], [place] [address] 16 May, 2013 [facility] [address] [id number] [address] [place] [address], [place] [address] 16 May, 2013 [facility] [address] [id number] [address] [place] [address], [place] [address] 16 May, 2013 [facility] [address] [id number] [address] [place] [address], [place] [address] 13 May, 2013 [facility] [address] [id number] [address] [place] [address], [place] [address] 13 May, 2013 [facility] [address] [id number] [address] [place] [address], [place] [address] 11 May, 2013 [facility] [address] [id number] [address] [place] [address], [place] [address] 20 Apr, 2013 [facility] [address] [id number] [address] [place] [address] Apr, [facility] [address] [id number] [address] [place] [address], [place] [address] 18 Apr, 2013 [facility] [address] [id number] [address] [place] [address] Apr, [facility] [address] [id number] [address] [place] [address] Apr, [facility] [address] [id number] [address] [place] [address] 08 Apr, 2013 [facility] [address] [id number] [address] [place] [address], [place] [address] 08 Apr, 2013 [facility] [address] [id number] [address] [place] [address] Apr, [facility] [address] [id number] [address] [place] [address] Apr, [facility] [address] [id number] [address] [place] [address] Apr, [facility] [address] [id number] [address] [place] [address] Apr, [facility] [address] [id number] [address] [place] [id number] Mar, [facility] [address] [id number] [address] [place] [address] Mar, [facility] [address] [id number] [address] [place] [address] Mar, [facility] [address] [id number] [address] [place] [address] Mar, [facility] [address] [id number] [address] [place] [id number] Mar, [facility] [address] [id number] [address] [place] [address] Mar, [facility] [address] [id number] [address] [place] [address], [place] [address] Mar, [facility] [address] [id number] [address] [place] [address], [place] [address] Mar, [facility] [address] [id number] [address] [place] [address], [place] [address] Mar, [facility] [address] [id number] [address] [place] [address], [place] [address] Mar, [facility] [address] [id number] [address] [place] [address], [place] [address] 15 Mar, 2013 [facility] [address] [id number] [address] [place] [address], [place] [address] Mar, [facility] [address] [id number] [address] [place] [address], [place] [address] 30 Jan, 2013 [facility] [address] [id number] [address] [place] [address], [place] [address] Jan, [facility] [address] [id number] [address] [place] [address], [place] [address] 20 Jan, 2013 [facility] [address] [id number] [address] [place] [address], [place] [address] Jan, [facility] [address] [id number] [address] [place] [address], [place] [address] Dec, [facility] [address] [id number] [address] [place] [address], [place] [address] Dec, [facility] [address] [id number] [address] [place] [address], [place] [address] Dec, [facility] [address] [id number] [address] [place] [address], [place] [address] Dec, [facility] [address] [id number] [address] [place] [address], [place] [address] Dec, [facility] [address] [id number] [address] [place] [address], [place] [address] Dec, [facility] [address] [id number] [address] [place] [address], [place] [address] Dec, [facility] [address] [id number] [address] [place] [address], [place] [address] Dec, [facility] [address] [id number] [address] [place] [address], [place] [address] Dec, [facility] [address] [id number] [address] [place] [address], [place] [address] Nov, [facility] [address] [id number] [address] [place] [address], [place] [address] Nov, [facility] [address] [id number] [address] [place] [address], [place] [address] Nov, [facility] [address] [id number] [address] [place] [address], [place] [address] Nov, [facility] [address] [id number] [address] [place] [address], [place] [address] Nov, [facility] [address] [id number] [address] [place] [address], [place] [address] Nov, [facility] [address] [id number] [address] [place] [address], [place] [address] Nov, [facility] [address] [id number] [address] [place] [address], [place] [address] Nov, [facility] [address] [id number] [address] [place] [address], [place] [address] Oct, [facility] [address] [id number] [address] [place] [address], [place] [address] Oct, [facility] [address] [id number] [address] [place] [address], [place] [address] Oct, [facility] [address] [id number] [address] [place] [address], [place] [address] Oct, [facility] [address] [id number] [address] [place] [address], [place] [address] Oct, [facility] [address] [id number] [address] [place] [address], [place] [address] 21 Oct, 2012 [facility] [address] [id number] [address] [place] [address], [place] [address] 20 Oct, 2012 [facility] [address] [id number] [address] [place] [address], [place] [address] 20 Oct, 2012 [facility] [address] [id number] [address] [place] [address], [place] [address] 19 Oct, 2012 [facility] [address] [id number] [address] [place] [address], [place] [address] 18 Oct, 2012 [facility] [address] [id number] [address] [place] [address], [place] [address] 17 Oct, 2012 [facility] [address] [id number] [address] [place] [address], [place] [address] 14 Oct, 2012 [facility] [address] [id number] [address] [place] [address], [place] [address] 07 Oct, 2012 [facility] [address] [id number] [address] [place] [address], [place] [address] 30 Sep, 2012 [facility] [address] [id number] [address] [place] [address], [place] [address] September, [facility] [address] [id number] [address] [place] [address], [place] [address] 15 Sep, 2012 [facility] [address] [id number] [address] [place] [address], [place] [address] 25 Aug, 2012 [facility] [address] [id number] [address] [place] [address], [place] [address] 24 Aug, 2012 [facility] [address] [id number] [address] [place] [address], [place] [address] 18 Aug, 2012 [facility] [address] [id number] [address] [place] [address], [place] [address] 18 Aug, 2012 [facility] [address] [id number] [address] [place] [address], [place] [address] 18 Aug, 2012 [facility] [address] [id number] [address] [place] [address], [place] [address] Aug, [facility] [address] [id number] [address] [place] [address], [place] [address] Aug, [facility] [address] [id number] [address] [place] [address], [place] [address] Jul, [facility] [address] [id number] [address] [place] [address], [place] [address] Jul, [facility] [address] [id number] [address] [place] [address], [place] [address] Jul, [facility] [address] [id number] [address] [place] [address], [place] [address] Jul, [facility] [address] [id number] [address] [place] [address], [place] [address] Jul, [facility] [address] [id number] [address] [place] [address], [place] [address] Jul, [facility] [address] [id number] [address] [place] [address], [place] [address] Jul, [facility] [address] [id number] [address] [place] [address], [place] [address] Jul, [facility] [address] [id number] [address] [place] [address], [place] [address] Jul, [facility] [address] [id number] [address] [place] [address], [place] [address] Jul, [facility] [address] [id number] [address] [place] [address], [place] [address] 11 Jul, 2012 [facility] [address] [id number] [address] [place] [address], [place] [address] 06 Jul, 2012 [facility] [address] [id number] [address] [place] [address] [place] [address] Jul, [facility] [address] [id number] [address] [place] [address], [place] [address] Jun, [facility] [address] [id number] [address] [place] [address], [place] [address] Jun, [facility] [address] [id number] [address] [place] [address], [place] [address] Jun, [facility] [address] [id number] [address] [place] [address], [place] [address] 17 Jun, 2012 [facility] [address] [id number] [address] [place] [address], [place] [address] 15 Jun, 2012 [facility] [address] [id number] [address] [place] [address], [place] [address] Jun, [facility] [address] [id number] [address] [place] [address], [place] [address] Jun, [facility] [address] [id number] [address] [place] [address], [place] [address] May, [facility] [address] [id number] [address] [place] [address], [place] [address] May, [facility] [address] [id number] [address] [place] [address], [place] [address] May, [facility] [address] [id number] [address] [place] [address], [place] [address] May, [facility] [address] [id number] [address] [place] [address], [place] [address] May, [facility] [address] [id number] [address] [place] [address], [place] [address] May, [facility] [address] [id number] [address] [place] [address], [place] [address] May, [facility] [address] [id number] [address] [place] [address], [place] [address] May, [facility] [address] [id number] [address] [place] [address], [place] [address] May, [facility] [address] [id number] [address] [place] [address], [place] [address] May, [facility] [address] [id number] [address] [place] [address], [place] [address] Apr, [facility] [address] [id number] [address] [place] [address], [place] [address] Apr, [facility] [address] [id number] [address] [place] [address], [place] [address] Apr, [facility] [address] [id number] [address] [place] [address], [place] [address] Apr, [facility] [address] [id number] [address] [place] [address], [place] [address] Apr, [facility] [address] [id number] [address] [place] [address], [place] [address] Apr, [facility] [address] [id number] [address] [place] [address], [place] [address] Apr, [facility] [address] [id number] [address] [place] [address], [place] [address] Apr, [facility] [address] [id number] [address] [place] [address], [place] [address] Apr, [facility] [address] [id number] [address] [place] [address], [place] [address] Apr, [facility] [address] [id number] [address] [place] [address], [place] [address] Apr, [facility] [address] [id number] [address] [place] [address], [place] [address] Apr, [facility] [address] [id number] [address] [place] [address], [place] [address] Mar, [facility] [address] [id number] [address] [place] [address], [place] [address] Mar, 2011 [facility] [address] [id number] [address] [place] [address], [place] [address] 30 Mar, 2011 [facility] [address] [id number] [address] [place] [id number] Mar, 2011 [facility] [address] [id number] [address] [place] [id number] Mar, 2011 [facility] [address] [id number] [address] [place] [id number] Mar, 2011 [facility] [address] [id number] [address] [place] [address], [place] [address] Mar, 2011 [facility] [address] [id number] [address] [place] [id number] Mar, 2011 [facility] [address] [id number] [address] [place] [id number] Mar, 2011 [facility] [address] [id number] [address] [place] [address] Mar, [facility] [address] [id number] [address] [place] [id number] Mar, [facility] [address] [id number] [address] [place] [id number] Mar, [facility] [address] [id number] [address] [place] [id number] Mar, [facility] [address] [id number] [address] [place] [address] Mar, [facility] [address] [id number] [address] [place] [address], [place] [address] Mar, [facility] [address] [id number] [address] [place] [id number] Mar, [facility] [address] [id number] [address] [place] [address] Jan, [facility] [address] [id number] [address] [place] [address], [place] [address] 24 Sep, 2011 [facility] [address] [id number] [address] [place] [address], [place] [address] 22 Sep, 2011 [facility] [address] [id number] [address] [place] [address], [place] [address] 22 Jan, 2011 [facility] [address] [id number] [address] [place] [address], [place] [address] 21 Jan, 2011 [facility] [address] [id number] [address] [place] [address], [place] [address] 18 Sep, 2011 [facility] [address] [id number] [address] [place] [address], [place] [address] 14 Jan, 2011 [facility] [address] [id number] [address] [place] [address], [place] [address] 07 Jan, 2012 [facility] [address] [id number] [address] [place] [address], [place] [address] 15 Dec, 2011 [facility] [address] [id number] [address] [place] [address], [place] [address] 10 Dec, 2011 [facility] [address] [id number] [address] [place] [address], [place] [address] 09 Dec, 2011 [facility] [address] [id number] [address] [place] [address], [place] [address] 08 Dec, 2011 [facility] [address] [id number] [address] [place] [address], [place] [address] Dec, [facility] [address] [id number] [address] [place] [address], [place] [address] Dec, [facility] [address] [id number] [address] [place] [address], [place] [address] Dec, [facility] [address] [id number] [address] [place] [address], [place] [address] Nov, [facility] [address] [id number] [address] [place] [address], [place] [address] Oct, [facility] [address] [id number] [address] [place] [address], [place] [address] 05 Aug, 2011 [facility] [address] [id number] [address] [place] [address], [place] [address] 22 Jul, 2011 [facility] [address] [id number] [address] [place] [address], [place] [address] 19 Jul, 2011 [facility] [address] [id number] [address] [place] [address], [place] [address] 16 Jul, 2011 [facility] [address] [id number] [address] [place] [address], [place] [address] 14 Jul, 2011 [facility] [address] [id number] [address] [place] [address], [place] [address] 07 Jul, 2011 [facility] [address] [id number] [address] [place] [address], [place] [address] 02 Jul, 2011 [facility] [address] [id number] [address] [place] [address], [place] [address] 21 Jul, 2011 [facility] [address] [id number] [address] [place] [address], [place] [address] 15 Jul, 2011 [facility] [address] [id number] [address] [place] [address], [place] [address] 13 Jul, 2011 [facility] [address] [id number] [address] [place] [address], [place] [address] 03 Jul, 2011 [facility] [address] [id number] [address] [place] [address], [place] [address] 02 Jul, 2011 [facility] [address] [id number] [address] [place] [address], [place] [address] 24 Jun, 2011 [facility] [address] [id number] [address] [place] [address], [place] [address] 24 Jun, 2011 [facility] [address] [id number] [address] [place] [address], [place] [address] 13 Jun, 2011 [facility] [address] [id number] [address] [place] [address], [place] [address] 11 Jun, 2011 [facility] [address] [id number] [address] [place] [address], [place] [address] Jun, [facility] [address] [id number] [address] [place] [address], [place] [address] Jun, [facility] [address] [id number] [address] [place] [address], [place] [address] Jun, [facility] [address] [id number] [address] [place] [address], [place] [address] May, [facility] [address] [id number] [address] [place] [address], [place] [address] May, [facility] [address] [id number] [address] [place] [address], [place] [address] May, [facility] [address] [id number] [address] [place] [address], [place] [address] May, [facility] [address] [id number] [address] [place] [address], [place] [address] 14 May, 2011 [facility] [address] [id number] [address] [place] [address], [place] [address] May, [facility] [address] [id number] [address] [place] [address], [place] [address] May, [facility] [address] [id number] [address] [place] [address], [place] [address] May, [facility] [address] [id number] [address] [place] [address], [place] [address] May, [facility] [address] [id number] [address] [place] [address], [place] [address] May, [facility] [address] [id number] [address] [place] [address], [place] [address] 15 Apr, 2011 [facility] [address] [id number] [address] [place] [address], [place] [address] 15 Apr, 2011 [facility] [address] [facility] [id number] [address] [place] [id number] Apr, [facility] [address] [facility] [id number] [address] [place] [address] Apr, [facility] [address] [facility] [id number] [address] [place] [id number] Mar, [facility] [address] [facility] [id number] [address] [place] [id number] Mar, [facility] [address] [facility] [id number] [address] [place] [id number] Mar, [facility] [address] [facility] [id number] [address] [place] [id number] Mar, IMMUNIZATIONS No Known Immunizations SOCIAL HISTORY Never Assessed REASON FOR VISIT PLAN OF CARE VITAL SIGNS MEDICATIONS Unknown Medications RESULTS No Results PROCEDURES Procedure Date Ordered Result Body Site DRUG SCREEN, QUALITATE/MULTI May 16, 2013 INSTRUCTIONS MEDICATIONS ADMINISTERED No Known Medications [...]
--- OUTSIDE RECORDS SUMMARY | 2020-01-03 17:51 | XMS REPORT ---
Author Author Pattie Moffett Doctor Organization [facility] Address Unknown Phone Unavailable Care Team Providers Care Lactation Consultant Name Role Phone Migration, Doctor Unavailable Unavailable PROBLEMS Type Condition ICD9-CM Code [id number] Code Onset Dates Condition S tatus SNOMED Code Problem FRANCIS (generalized anxiety disorder) F41.1 Active 51171591 Problem Thoracic disc herniation M51.24 Activ e 169140643 Problem Major depressive disorder in partial remission F32 .4 Active 43865276 Problem Seizure disorder G40.909 Active 128 741714 Problem Conversion disorder (or hysterical neurosis, conversion ty pe) F44.9 Active 01453000 Problem Constipation, unspecified constipation type K59.00 Active 94456047 Problem Mild episode of recurrent major depressive disorder F33.0 Active 760982423 Problem Restless leg syndrome G25.81 Active 61399364 Problem Nonadherence to medication Z91.14 Act vivian 265978765 Problem Slow transit constipation K59.01 Acti ve 05084968 Problem Atrophic vaginitis N95.2 Active 5 5692607 Problem Paroxysmal tachycardia I47.9 Active 36614031 Problem Other chronic pain G89.29 Active 8 1828305 Problem Mild intermittent asthma without complication J45. 20 Active 329866319 Problem Obesity (BMI 30.0-34.9) E66.9 Active [id number] Problem High blood pressure I10 Active 23940126 ALLERGIES No Information ENCOUNTERS Encounter Location Date Diagnosis [facility] [address] [facility] [id number] [address] [place] [id number] 08 Nov, 2019 [facility] [address] [facility] [id number] [address] [place] [phone] Nov, [address] [id number] [id number] 26 Oct, 2019 Breast cancer screening Z12.[address] [id number] [address] 08 Oct, 2019 Breast cancer screening Z12. 39 [facility] [address] [id number] [address] [place] [phone] Oct, [facility] [address] [id number] [address] [place] [phone] Oct, [facility] [address] [id number] [address] [place] [phone] September, [facility] [address] [id number] [address] [place] [address] September, [facility] [address] [id number] [address] [place] [address] September, Well woman exam with routine gynecological exam Z01.419 and Atrophic vaginitis N95.2 [facility] [address] [id number] [address] [place] [phone] September, Major depressive disorder in partial remission F32.4 ; FRANCIS (generalized anxiety disorder) F41.1 ; Restless leg syndrome G25.81 and Nonadherence to medication Z91.14 [facility] [address] [id number] [address] [place] [address] September, [facility] [address] [id number] [address] [place] [phone] Aug, [facility] [address] [facility] [id number] [address] [place] [id number] Aug, Dental examination Z01.20 [facility] [address] [id number] [address] [place] [id number] Aug, Dental examination Z01.20 an d Caries K02.9 [facility] [address] [id number] [address] [place] [phone] Aug, [facility] [address] [id number] [address] [place] [phone] Aug, [facility] [address] [id number] [address] [place] [phone] Aug, Other chronic pain G89.29 an d Back muscle spasm M62.830 [facility] [address] [id number] [address] [place] [id number] 07 Aug, 2019 [facility] [address] [id number] [address] [place] [phone] Aug, Major depressive disorder in partial remission F32.4 ; FRANCIS (generalized anxiety disorder) F41.1 ; Restless leg syndrome G25.81 and Nonadherence to medication Z91.14 [facility] [address] [id number] [address] [place] [phone] Aug, [facility] [address] [id number] [address] [place] [phone] Jul, [facility] [address] [id number] [address] [place] [phone] Jul, [facility] [address] [id number] [address] [place] [phone] Jul, Major depressive disorder in partial remission F32.4 ; FRANCIS (generalized anxiety disorder) F41.1 ; Restless leg syndrome G25.81 and High blood pressure I10 [facility] [address] [id number] [address] [place] [phone] 17 Jul, 2019 [facility] [address] [id number] [address] [place] [phone] Jul, [facility] [address] [id number] [address] [place] [phone] Jun, [facility] [address] [id number] [address] [place] [phone] May, [facility] [address] [id number] [address] [place] [address] Apr, [facility] [address] [id number] [address] [place] [phone] Apr, [facility] [address] [id number] [address] [place] [address] Mar, [facility] [address] [id number] [address] [place] [phone] Mar, Major depressive disorder in partial remission F32.4 ; FRANCIS (generalized anxiety disorder) F41.1 and Restless leg syndrome G25.81 [facility] [address] [id number] [address] [place] [phone] Mar, Obesity (BMI 30.0-34.9) E66. 9 [facility] [address] [id number] [address] [place] [phone] Jan, [facility] [address] [id number] [address] [place] [address] Jan, Burn T30.0 [facility] [address] [id number] [address] [place] [phone] Dec, [facility] [address] [id number] [address] [place] [address] Nov, [facility] [address] [id number] [address] [place] [phone] Nov, [facility] [address] [id number] [address] [place] [id number] Nov, Dental examination Z01.20 [facility] [address] [id number] [address] [place] [phone] September, [facility] [address] [id number] [address] [place] [id number] September, Decay, teeth K02.9 and Denta l examination Z01.20 [facility] [address] [id number] [address] [place] [address] [id number] September, Dental examination Z01.20 [facility] [address] [id number] [address] [place] [phone] September, FRANCIS (generalized anxiety dis order) F41.1 ; Major depressive disorder in partial remission F32.4 and Restless leg syndrome G25.81 [facility] [address] [address] Aug, [facility] [address] [address] Jul, [facility] [address] [place] [id number] [place] [address] Jul, Encounter to discuss test re sults Z71.2 [facility] [address] [address] Jul, Pelvic pain R10.2 ; Screenin g for breast cancer Z12.31 and Obesity (BMI 30.0-34.9) E66.9 [place] [address] [address] Jul, Mild intermittent asthma wit hout complication J45.20 [place] [address] [address] Jul, Major depressive disorder in partial remission F32.4 and FRANCIS (generalized anxiety disorder) F41.1 [place] [address] [address] Jul, [facility] [address] [address] Jun, [place] [address] [address] May, Major depressive disorder in partial remission F32.4 ; FRANCIS (generalized anxiety disorder) F41.1 and Restless leg syndrome G25.81 [place] [address] [address] Apr, [facility] [address] [place] [id number] [place] [address] Mar, [facility] [address] [place] [id number] [address] [place] [phone] 21 Sep, 2018 Pain in thoracic spine M54.6 and Other chronic pain G89.29 [facility] [address] [id number] [address] [place] [id number] 14 Jan, 2018 [facility] [address] [id number] [address] [place] [phone] 11 Jan, 2018 Mild episode of recurrent ma saray depressive disorder F33.0 ; FRANCIS (generalized anxiety disorder) F41.1 and Restless leg syndrome G25.81 [facility] [address] [id number] [address] [place] [phone] Dec, [facility] [address] [id number] [address] [place] [phone] Dec, Hospital discharge follow-up Z09 [facility] [address] [id number] [address] [place] [phone] Nov, [facility] [address] [id number] [address] [place] [phone] Nov, [facility] [address] [id number] [address] [place] [phone] September, [facility] [address] [id number] [address] [place] [id number] September, [facility] [address] [id number] [address] [place] [phone] September, Major depressive disorder in partial remission F32.4 ; FRANCIS (generalized anxiety disorder) F41.1 and Restless leg syndrome G25.81 [facility] [address] [id number] [address] [place] [phone] September, [facility] [address] [id number] [address] [place] [id number] Jul, [facility] [address] [id number] [address] [place] [address] Jul, Dorsalgia, unspecified M54.9 [facility] [address] [id number] [address] [place] [phone] Jul, Mild episode of recurrent ma saray depressive disorder F33.0 and FRANCIS (generalized anxiety disorder) F41.1 [facility] [address] [id number] [address] [place] [phone] May, [facility] [address] [facility] [id number] [address] [place] [address] May, Dysuria R30.0 and Acute cyst itis with hematuria N30.01 [facility] [address] [id number] [address] [place] [phone] Apr, [place] [address] [facility] [id number] [address] [place] [address] Apr, Major depressive disorder in partial remission F32.4 and FRANCIS (generalized anxiety disorder) F41.1 [place] [address] [facility] [id number] [address] [place] [phone] Mar, Paroxysmal tachycardia I47.9 [place] [address] [facility] [id number] [address] [place] [phone] Mar, Paroxysmal tachycardia I47.9 and Pain of left lower extremity M79.605 [place] [address] [facility] [id number] [address] [place] [phone] Mar, FRANCIS (generalized anxiety dis order) F41.1 and Major depressive disorder in partial remission F32.4 [place] [address] [facility] [id number] [address] [place] [phone] Jan, [facility] [address] [id number] [address] [place] [phone] Jan, [place] [address] [facility] [id number] [address] [place] [phone] Jan, [facility] [address] [facility] [id number] [address] [place] [address] Dec, Constipation, unspecified co nstipation type K59.00 [place] [address] [facility] [id number] [address] [place] [phone] Dec, [facility] [address] [id number] [address] [place] [phone] Nov, [facility] [address] [facility] [id number] [address] [place] [phone] Nov, Major depressive disorder in partial remission F32.4 and FRANCIS (generalized anxiety disorder) F41.1 [facility] [address] [facility] [id number] [address] [place] [address] Oct, Abdominal pain R10.9 and Slo w transit constipation K59.01 [place] [address] [facility] [id number] [address] [place] [phone] Aug, Major depressive disorder in partial remission F32.4 ; FRANCIS (generalized anxiety disorder) F41.1 ; Conversion disorder (or hysterical neurosis, conversion type) F44.9 ; Dorsalgia, unspecified M54.9 and Long-term use of high-risk medication Z79.899 [place] [id number] [facility] [id number] [address] [place] [address] Aug, [place] [address] [facility] [id number] [address] [place] [address] Jul, Paroxysmal tachycardia I47.9 [place] [id number] [facility] [id number] [address] [place] [phone] Jul, Paroxysmal tachycardia I47.9 [place] [address] [facility] [id number] [address] [place] [phone] Jun, [facility] [address] [facility] [id number] [address] [place] [phone] Jun, Major depressive disorder in partial remission F32.4 ; FRANCIS (generalized anxiety disorder) F41.1 and Conversion disorder (or hysterical neurosis, conversion type) F44.9 [facility] [address] [facility] [id number] [address] [place] [phone] May, Pelvic pain R10.2 [facility] [address] [id number] [address] [place] [phone] 30 Apr, 2016 Gastroenteritis K52.9 [facility] [address] [id number] [address] [place] [phone] 17 Apr, 2016 Blood in urine R31.9 and Acu te cystitis with hematuria N30.01 [facility] [address] [id number] [address] [place] [address] Apr, Major depressive disorder in partial remission F32.4 ; FRANCIS (generalized anxiety disorder) F41.1 and Conversion disorder (or hysterical neurosis, conversion type) F44.9 [facility] [address] [id number] [address] [place] [phone] Apr, [facility] [address] [facility] [id number] [address] [place] [address] Apr, Abnormal mammogram R92.8 [facility] [address] [id number] [address] [place] [address] Mar, [facility] [address] [id number] [address] [place] [address] Mar, Gastroenteritis K52.9 and Se izure disorder G40.909 [facility] [address] [id number] [address] [place] [phone] Dec, [facility] [address] [id number] [address] [place] [address] Dec, Other headache syndrome G44. 89 [facility] [address] [id number] [address] [place] [address] Dec, [facility] [address] [facility] [id number] [address] [place] [phone] Dec, Thoracic disc herniation M51 .24 [facility] [address] [id number] [address] [place] [phone] Dec, [facility] [address] [facility] [id number] [address] [place] [address] Nov, Major depressive disorder in partial remission F32.4 and FRANCIS (generalized anxiety disorder) F41.1 [facility] [address] [id number] [address] [place] [phone] Nov, [facility] [address] [id number] [address] [place] [phone] Nov, Dorsalgia, unspecified M54.9 [facility] [address] [id number] [address] [place] [phone] Oct, [facility] [address] [id number] [address] [place] [phone] September, [facility] [address] [id number] [address] [place] [id number] Aug, [facility] [address] [id number] [address] [place] [phone] Aug, Major depressive disorder in partial remission F32.4 and FRANCIS (generalized anxiety disorder) F41.1 [facility] [address] [id number] [address] [place] [phone] Aug, [facility] [address] [id number] [address] [place] [phone] Jul, Abnormal mammogram R92.8 [facility] [address] [id number] [address] [place] [phone] Jul, [facility] [address] [id number] [address] [place] [phone] Jul, [facility] [address] [id number] [address] [place] [phone] Jul, [facility] [address] [id number] [address] [place] [phone] Jul, [facility] [address] [id number] [address] [place] [address] Jul, [facility] [address] [id number] [address] [place] [phone] Jul, [facility] [address] [id number] [address] [place] [phone] Jun, Major depressive disorder in partial remission F32.4 and FRANCIS (generalized anxiety disorder) F41.1 [facility] [address] [id number] [address] [place] [phone] Jun, [facility] [address] [id number] [address] [place] [address] May, [facility] [address] [id number] [address] [place] [address] Apr, [facility] [address] [id number] [address] [place] [phone] Mar, Major depressive disorder, r ecurrent episode, moderate F33.1 ; PTSD (post-traumatic stress disorder) F43.10 and FRANCIS (generalized anxiety disorder) F41.1 [facility] [address] [id number] [address] [place] [address] Mar, [facility] [address] [id number] [address] [place] [phone] Mar, [facility] [address] [id number] [address] [place] [phone] Mar, [facility] [address] [id number] [address] [place] [phone] Mar, [facility] [address] [id number] [address] [place] [phone] 23 Jan, 2015 [facility] [address] [id number] [address] [place] [phone] 15 Jan, 2015 [facility] [address] [id number] [address] [place] [phone] 15 Jan, 2015 [facility] [address] [facility] [id number] [address] [place] [id number] 14 Jan, 2015 Thoracic disc herniation 722 .11 [facility] [address] [id number] [address] [place] [address] Dec, [facility] [address] [id number] [address] [place] [phone] Dec, [facility] [address] [id number] [address] [place] [phone] Dec, [facility] [address] [id number] [address] [place] [phone] Nov, [facility] [address] [id number] [address] [place] [address] Nov, Generalized anxiety disorder 300.02 ; Posttraumatic stress disorder 309.81 and Major depressive disorder, recurrent episode, moderate 296.32 [facility] [address] [id number] [address] [place] [phone] Nov, [facility] [address] [id number] [address] [place] [phone] Nov, [facility] [address] [id number] [address] [place] [phone] Oct, [facility] [address] [id number] [address] [place] [phone] Oct, [facility] [address] [id number] [address] [place] [phone] Oct, [facility] [address] [id number] [address] [place] [phone] September, [facility] [address] [id number] [address] [place] [phone] September, [facility] [address] [id number] [address] [place] [phone] Aug, [facility] [address] [id number] [address] [place] [phone] Aug, [facility] [address] [id number] [address] [place] [phone] Jul, [facility] [address] [id number] [address] [place] [address], [place] [address] Jul, [facility] [address] [id number] [address] [place] [address], [place] [id number] Jul, [facility] [address] [id number] [address] [place] [address], [place] [id number] 17 Jul, 2014 [facility] [address] [id number] [address] [place] [address], [place] [id number] Jul, [facility] [address] [id number] [address] [place] [address], [place] [id number] Jul, [facility] [address] [id number] [address] [place] [address], [place] [id number] Jul, [facility] [address] [id number] [address] [place] [address], [place] [id number] Jul, [facility] [address] [id number] [address] [place] [address], [place] [id number] Jul, [facility] [address] [id number] [address] [place] [address], [place] [id number] Jul, [facility] [address] [id number] [address] [place] [address], [place] [id number] Jun, [facility] [address] [id number] [address] [place] [address], [place] [id number] Jun, [facility] [address] [id number] [address] [place] [address], [place] [address] Jun, [facility] [address] [id number] [address] [place] [address], [place] [address] May, [facility] [address] [id number] [address] [place] [address], [place] [id number] Apr, [facility] [address] [id number] [address] [place] [address], [place] [address] Apr, [facility] [address] [id number] [address] [place] [address], [place] [address] Apr, [facility] [address] [id number] [address] [place] [address], [place] [address] Apr, [facility] [address] [id number] [address] [place] [address], [place] [address] Apr, [facility] [address] [id number] [address] [place] [address], [place] [address] Apr, [facility] [address] [id number] [address] [place] [address], [place] [address] Apr, [facility] [address] [id number] [address] [place] [address], [place] [address] Apr, [facility] [address] [id number] [address] [place] [address], [place] [address] Mar, [facility] [address] [id number] [address] [place] [address], [place] [address] Mar, [facility] [address] [id number] [address] [place] [address], [place] [address] Mar, [facility] [address] [id number] [address] [place] [address], [place] [address] Mar, [facility] [address] [id number] [address] [place] [address], [place] [address] Mar, [facility] [address] [id number] [address] [place] [address], [place] [address] Mar, [facility] [address] [id number] [address] [place] [address], [place] [address] Mar, [facility] [address] [id number] [address] [place] [address], [place] [address] Mar, [facility] [address] [id number] [address] [place] [address], [place] [address] Mar, [facility] [address] [id number] [address] [place] [address], [place] [address] Mar, [facility] [address] [id number] [address] [place] [address], [place] [address] Mar, 2013 [facility] [address] [id number] [address] [place] [address], [place] [address] Mar, [facility] [address] [id number] [address] [place] [address], [place] [address] 14 Mar, 2014 [facility] [address] [id number] [address] [place] [address], [place] [address] Mar, 2013 [facility] [address] [id number] [address] [place] [address], [place] [address] Mar, [facility] [address] [id number] [address] [place] [address], [place] [address] Mar, 2013 [facility] [address] [id number] [address] [place] [address], [place] [address] Mar, 2013 [facility] [address] [id number] [address] [place] [address], [place] [address] 19 Sep, 2013 [facility] [address] [id number] [address] [place] [address], [place] [address] 19 Sep, 2013 [facility] [address] [id number] [address] [place] [address], [place] [address] 09 Sep, 2013 [facility] [address] [id number] [address] [place] [address], [place] [address] 09 Sep, 2013 [facility] [address] [id number] [address] [place] [address], [place] [address] 05 Sep, 2013 [facility] [address] [id number] [address] [place] [address], [place] [address] 05 Sep, 2013 [facility] [address] [id number] [address] [place] [address], [place] [address] 05 Sep, 2013 [facility] [address] [id number] [address] [place] [address], [place] [address] 05 Sep, 2013 [facility] [address] [id number] [address] [place] [address], [place] [address] Jan, [facility] [address] [id number] [address] [place] [address], [place] [address] Jan, [facility] [address] [id number] [address] [place] [address], [place] [address] Jan, [facility] [address] [id number] [address] [place] [address], [place] [address] Jan, [facility] [address] [id number] [address] [place] [address], [place] [address] Jan, [facility] [address] [id number] [address] [place] [address], [place] [address] Dec, [facility] [address] [id number] [address] [place] [address], [place] [address] Dec, [facility] [address] [id number] [address] [place] [address], [place] [address] Dec, [facility] [address] [id number] [address] [place] [address], [place] [address] Dec, [facility] [address] [id number] [address] [place] [address], [place] [address] Dec, [facility] [address] [id number] [address] [place] [address], [place] [address] Dec, [facility] [address] [place] [id number] Dec, [facility] [address] [place] [id number] Dec, [facility] [address] [id number] [address] [place] [address], [place] [address] Dec, [facility] [address] [id number] [address] [place] [address], [place] [address] Dec, [facility] [address] [id number] [address] [place] [address], [place] [address] Dec, [facility] [address] [id number] [address] [place] [address], [place] [address] Dec, [facility] [address] [id number] [facility] [address] Nov, [facility] [address] [id number] [facility] [address] Nov, [facility] [address] [id number] [facility] [address] Nov, [facility] [address] [id number] [address] [place] [address], [place] [address] Nov, [facility] [address] [id number] [address] [place] [address], [place] [address] Nov, [facility] [address] [id number] [address] [place] [address], [place] [address] Nov, [facility] [address] [id number] [address] [place] [address], [place] [address] Nov, [facility] [address] [id number] [address] [place] [address], [place] [address] Nov, [facility] [address] [id number] [address] [place] [address], [place] [address] Nov, [facility] [address] [id number] [address] [place] [address], [place] [address] Nov, [facility] [address] [id number] [address] [place] [address], [place] [address] Nov, [facility] [address] [id number] [address] [place] [address], [place] [address] Nov, [facility] [address] [id number] [address] [place] [address], [place] [address] Nov, [facility] [address] [id number] [address] [place] [address], [place] [address] Oct, [facility] [address] [id number] [address] [place] [address], [place] [address] Oct, [facility] [address] [id number] [facility] [address] Oct, [facility] [address] [id number] [address] [place] [address], [place] [address] Oct, [facility] [address] [id number] [address] [place] [address], [place] [address] Oct, [facility] [address] [id number] [address] [place] [address], [place] [address] Oct, [facility] [address] [id number] [address] [place] [address], [place] [address] Oct, [facility] [address] [id number] [address] [place] [address], [place] [address] Oct, [facility] [address] [id number] [address] [place] [address], [place] [address] Oct, [facility] [address] [id number] [address] [place] [address], [place] [address] Oct, [facility] [address] [id number] [address] [place] [address], [place] [address] Oct, [facility] [address] [id number] [address] [place] [address], [place] [address] Oct, [facility] [address] [id number] [address] [place] [address], [place] [address] September, [facility] [address] [id number] [address] [place] [address], [place] [address] September, [facility] [address] [id number] [address] [place] [address], [place] [address] September, [facility] [address] [id number] [address] [place] [address], [place] [address] September, [facility] [address] [id number] [address] [place] [address], [place] [address] Aug, [facility] [address] [id number] [address] [place] [address], [place] [address] Aug, [facility] [address] [id number] [facility] [address] Aug, [facility] [address] [id number] [address] [place] [address], [place] [address] Aug, [facility] [address] [id number] [address] [place] [address], [place] [address] Aug, [facility] [address] [id number] [address] [place] [address], [place] [address] Aug, [facility] [address] [id number] [address] [place] [address], [place] [address] Aug, [facility] [address] [id number] [address] [place] [address], [place] [address] Jul, [facility] [address] [id number] [address] [place] [address], [place] [address] Jul, [facility] [address] [id number] [address] [place] [address], [place] [address] Jul, [facility] [address] [id number] [address] [place] [address], [place] [address] Jul, [facility] [address] [id number] [address] [place] [address], [place] [address] Jul, [facility] [address] [id number] [address] [place] [address], [place] [address] Jul, [facility] [address] [id number] [address] [place] [address], [place] [address] Jul, [facility] [address] [id number] [address] [place] [address], [place] [address] Jul, [facility] [address] [id number] [address] [place] [address], [place] [address] Jul, [facility] [address] [id number] [address] [place] [address], [place] [address] Jul, [facility] [address] [id number] [address] [place] [address], [place] [address] 18 Jul, 2013 [facility] [address] [id number] [address] [place] [address], [place] [address] 18 Jul, 2013 [facility] [address] [id number] [address] [place] [address], [place] [address] 14 Jul, 2013 [facility] [address] [id number] [address] [place] [address], [place] [address] 14 Jul, 2013 [facility] [address] [id number] [address] [place] [address], [place] [address] 11 Jul, 2013 [facility] [address] [id number] [address] [place] [address], [place] [address] Jul, [facility] [address] [id number] [address] [place] [address], [place] [address] Jul, [facility] [address] [id number] [address] [place] [address], [place] [address] Jul, [facility] [address] [id number] [address] [place] [address], [place] [address] Jun, [facility] [address] [id number] [address] [place] [address], [place] [address] 31 Jun, 2013 [facility] [address] [id number] [address] [place] [address], [place] [address] 15 Jun, 2013 [facility] [address] [id number] [address] [place] [address], [place] [address] 15 Jun, 2013 [facility] [address] [id number] [address] [place] [address], [place] [address] 14 Jun, 2013 [facility] [address] [id number] [address] [place] [address], [place] [address] 14 Jun, 2013 [facility] [address] [id number] [address] [place] [address], [place] [address] 14 Jun, 2013 [facility] [address] [id number] [address] [place] [address], [place] [address] 14 Jun, 2013 [facility] [address] [id number] [address] [place] [address], [place] [address] 14 Jun, 2013 [facility] [address] [id number] [address] [place] [address], [place] [address] 14 Jun, 2013 [facility] [address] [id number] [address] [place] [address], [place] [address] 27 May, 2013 [facility] [address] [id number] [address] [place] [address], [place] [address] 27 May, 2013 [facility] [address] [id number] [address] [place] [address], [place] [address] 26 May, 2013 [facility] [address] [id number] [address] [place] [address], [place] [address] 19 May, 2013 [facility] [address] [id number] [address] [place] [address], [place] [address] 19 May, 2013 [facility] [address] [id number] [address] [place] [address], [place] [address] 16 May, 2013 [facility] [address] [id number] [address] [place] [address], [place] [address] 16 May, 2013 [facility] [address] [id number] [address] [place] [address], [place] [address] 16 May, 2013 [facility] [address] [id number] [address] [place] [address], [place] [address] 16 May, 2013 [facility] [address] [id number] [address] [place] [address], [place] [address] 13 May, 2013 [facility] [address] [id number] [address] [place] [address], [place] [address] 13 May, 2013 [facility] [address] [id number] [address] [place] [address], [place] [address] 11 May, 2013 [facility] [address] [id number] [address] [place] [address], [place] [address] 20 Apr, 2013 [facility] [address] [id number] [address] [place] [address] Apr, [facility] [address] [id number] [address] [place] [address], [place] [address] 18 Apr, 2013 [facility] [address] [id number] [address] [place] [address] Apr, [facility] [address] [id number] [address] [place] [address] Apr, [facility] [address] [id number] [address] [place] [address] 08 Apr, 2013 [facility] [address] [id number] [address] [place] [address], [place] [address] 08 Apr, 2013 [facility] [address] [id number] [address] [place] [address] Apr, [facility] [address] [id number] [address] [place] [address] Apr, [facility] [address] [id number] [address] [place] [address] Apr, [facility] [address] [id number] [address] [place] [address] Apr, [facility] [address] [id number] [address] [place] [address] Mar, [facility] [address] [id number] [address] [place] [address] Mar, [facility] [address] [id number] [address] [place] [address] Mar, [facility] [address] [id number] [address] [place] [address] Mar, [facility] [address] [id number] [address] [place] [address] Mar, [facility] [address] [id number] [address] [place] [id number] Mar, [facility] [address] [id number] [address] [place] [address], [place] [address] Mar, [facility] [address] [id number] [address] [place] [address], [place] [address] Mar, [facility] [address] [id number] [address] [place] [address], [place] [address] Mar, [facility] [address] [id number] [address] [place] [address], [place] [address] Mar, [facility] [address] [id number] [address] [place] [address], [place] [id number] 15 Mar, 2013 [facility] [address] [id number] [address] [place] [address], [place] [address] Mar, [facility] [address] [id number] [address] [place] [address], [place] [id number] 30 Jan, 2013 [facility] [address] [id number] [address] [place] [address], [place] [address] Jan, [facility] [address] [id number] [address] [place] [address], [place] [address] 20 Jan, 2013 [facility] [address] [id number] [address] [place] [address], [place] [address] Jan, [facility] [address] [id number] [address] [place] [address], [place] [id number] Dec, [facility] [address] [id number] [address] [place] [address], [place] [id number] Dec, [facility] [address] [id number] [address] [place] [address], [place] [id number] Dec, [facility] [address] [id number] [address] [place] [address], [place] [id number] Dec, [facility] [address] [id number] [address] [place] [address], [place] [address] Dec, [facility] [address] [id number] [address] [place] [address], [place] [id number] Dec, [facility] [address] [id number] [address] [place] [address], [place] [id number] Dec, [facility] [address] [id number] [address] [place] [address], [place] [id number] Dec, [facility] [address] [id number] [address] [place] [address], [place] [address] Dec, [facility] [address] [id number] [address] [place] [address], [place] [id number] Nov, [facility] [address] [id number] [address] [place] [address], [place] [id number] Nov, [facility] [address] [id number] [address] [place] [address], [place] [id number] Nov, [facility] [address] [id number] [address] [place] [address], [place] [id number] Nov, [facility] [address] [id number] [address] [place] [address], [place] [id number] Nov, [facility] [address] [id number] [address] [place] [address], [place] [id number] Nov, [facility] [address] [id number] [address] [place] [address], [place] [address] Nov, [facility] [address] [id number] [address] [place] [address], [place] [address] Nov, [facility] [address] [id number] [address] [place] [address], [place] [id number] Oct, [facility] [address] [id number] [address] [place] [address], [place] [id number] Oct, [facility] [address] [id number] [address] [place] [address], [place] [id number] Oct, [facility] [address] [id number] [address] [place] [address], [place] [id number] Oct, [facility] [address] [id number] [address] [place] [address], [place] [id number] Oct, [facility] [address] [id number] [address] [place] [address], [place] [id number] 21 Oct, 2012 [facility] [address] [id number] [address] [place] [address], [place] [id number] 20 Oct, 2012 [facility] [address] [id number] [address] [place] [address], [place] [id number] 20 Oct, 2012 [facility] [address] [id number] [address] [place] [address], [place] [id number] 19 Oct, 2012 [facility] [address] [id number] [address] [place] [address], [place] [address] 18 Oct, 2012 [facility] [address] [id number] [address] [place] [address], [place] [id number] 17 Oct, 2012 [facility] [address] [id number] [address] [place] [address], [place] [id number] 14 Oct, 2012 [facility] [address] [id number] [address] [place] [address], [place] [id number] 07 Oct, 2012 [facility] [address] [id number] [address] [place] [address], [place] [id number] 30 Sep, 2012 [facility] [address] [id number] [address] [place] [address], [place] [address] September, [facility] [address] [id number] [address] [place] [address], [place] [id number] 15 Sep, 2012 [facility] [address] [id number] [address] [place] [address], [place] [id number] 25 Aug, 2012 [facility] [address] [id number] [address] [place] [address], [place] [id number] 24 Aug, 2012 [facility] [address] [id number] [address] [place] [address], [place] [id number] 18 Aug, 2012 [facility] [address] [id number] [address] [place] [address], [place] [id number] 18 Aug, 2012 [facility] [address] [id number] [address] [place] [address], [place] [id number] 18 Aug, 2012 [facility] [address] [id number] [address] [place] [address], [place] [id number] Aug, [facility] [address] [id number] [address] [place] [address], [place] [address] Aug, [facility] [address] [id number] [address] [place] [address], [place] [id number] Jul, [facility] [address] [id number] [address] [place] [address], [place] [id number] Jul, [facility] [address] [id number] [address] [place] [address], [place] [id number] Jul, [facility] [address] [id number] [address] [place] [address], [place] [id number] Jul, [facility] [address] [id number] [address] [place] [address], [place] [id number] Jul, [facility] [address] [id number] [address] [place] [address], [place] [id number] Jul, [facility] [address] [id number] [address] [place] [place] [address], [place] [id number] Jul, [facility] [address] [id number] [address] [place] [address], [place] [address] Jul, [facility] [address] [id number] [address] [place] [address], [place] [id number] Jul, [facility] [address] [id number] [address] [place] [address], [place] [id number] Jul, [facility] [address] [id number] [address] [place] [address], [place] [id number] 11 Jul, 2012 [facility] [address] [id number] [address] [place] [address], [place] [id number] 06 Jul, 2012 [facility] [address] [id number] [address] [place] [address] [place] [address] Jul, [facility] [address] [id number] [address] [place] [address], [place] [address] Jun, [facility] [address] [id number] [address] [place] [address], [place] [address] Jun, [facility] [address] [id number] [address] [place] [address], [place] [id number] Jun, [facility] [address] [id number] [address] [place] [address], [place] [address] 17 Jun, 2012 [facility] [address] [id number] [address] [place] [address], [place] [address] 15 Jun, 2012 [facility] [address] [id number] [address] [place] [address], [place] [address] Jun, [facility] [address] [id number] [address] [place] [address], [place] [address] Jun, [facility] [address] [id number] [address] [place] [address], [place] [address] May, [facility] [address] [id number] [address] [place] [address], [place] [address] May, [facility] [address] [id number] [address] [place] [address], [place] [id number] May, [facility] [address] [id number] [address] [place] [address], [place] [address] May, [facility] [address] [id number] [address] [place] [address], [place] [address] May, [facility] [address] [id number] [address] [place] [address], [place] [address] May, [facility] [address] [id number] [address] [place] [address], [place] [address] May, [facility] [address] [id number] [address] [place] [address], [place] [address] May, [facility] [address] [id number] [address] [place] [address], [place] [address] May, [facility] [address] [id number] [address] [place] [address], [place] [address] May, [facility] [address] [id number] [address] [place] [address], [place] [address] Apr, [facility] [address] [id number] [address] [place] [address], [place] [address] Apr, [facility] [address] [id number] [address] [place] [address], [place] [address] Apr, [facility] [address] [id number] [address] [place] [address], [place] [address] Apr, [facility] [address] [id number] [address] [place] [address], [place] [address] Apr, [facility] [address] [id number] [address] [place] [address], [place] [address] Apr, [facility] [address] [id number] [address] [place] [address], [place] [address] Apr, [facility] [address] [id number] [address] [place] [address], [place] [address] Apr, [facility] [address] [id number] [address] [place] [address], [place] [address] Apr, [facility] [address] [id number] [address] [place] [address], [place] [address] Apr, [facility] [address] [id number] [address] [place] [address], [place] [address] Apr, [facility] [address] [id number] [address] [place] [address], [place] [address] Apr, [facility] [address] [id number] [address] [place] [address], [place] [address] Mar, [facility] [address] [id number] [address] [place] [address], [place] [address] Mar, 2011 [facility] [address] [id number] [address] [place] [address], [place] [id number] 30 Mar, 2011 [facility] [address] [id number] [address] [place] [id number] Mar, 2011 [facility] [address] [id number] [address] [place] [phone] Mar, 2011 [facility] [address] [id number] [address] [place] [phone] Mar, 2011 [facility] [address] [id number] [address] [place] [address], [place] [address] Mar, 2011 [facility] [address] [id number] [address] [place] [phone] Mar, 2011 [facility] [address] [id number] [address] [place] [phone] Mar, 2011 [facility] [address] [id number] [address] [place] [phone] Mar, [facility] [address] [id number] [address] [place] [phone] Mar, [facility] [address] [id number] [address] [place] [phone] Mar, [facility] [address] [id number] [address] [place] [phone] Mar, [facility] [address] [id number] [address] [place] [phone] Mar, [facility] [address] [id number] [address] [place] [address], [place] [address] Mar, [facility] [address] [id number] [address] [place] [phone] Mar, [facility] [address] [id number] [address] [place] [phone] Jan, [facility] [address] [id number] [address] [place] [address], [place] [id number] 24 Sep, 2011 [facility] [address] [id number] [address] [place] [address], [place] [address] 22 Sep, 2011 [facility] [address] [id number] [address] [place] [address], [place] [id number] 22 Jan, 2011 [facility] [address] [id number] [address] [place] [address], [place] [id number] 21 Jan, 2011 [facility] [address] [id number] [address] [place] [address], [place] [address] 18 Sep, 2011 [facility] [address] [id number] [address] [place] [address], [place] [id number] 14 Jan, 2011 [facility] [address] [id number] [address] [place] [address], [place] [id number] 07 Jan, 2012 [facility] [address] [id number] [address] [place] [address], [place] [address] 15 Dec, 2011 [facility] [address] [id number] [address] [place] [address], [place] [id number] 10 Dec, 2011 [facility] [address] [id number] [address] [place] [address], [place] [id number] 09 Dec, 2011 [facility] [address] [id number] [address] [place] [address], [place] [id number] 08 Dec, 2011 [facility] [address] [id number] [address] [place] [address], [place] [id number] Dec, [facility] [address] [id number] [address] [place] [address], [place] [address] Dec, [facility] [address] [id number] [address] [place] [address], [place] [address] Dec, [facility] [address] [id number] [address] [place] [address], [place] [address] Nov, [facility] [address] [id number] [address] [place] [address], [place] [address] Oct, [facility] [address] [id number] [address] [place] [address], [place] [id number] 05 Aug, 2011 [facility] [address] [id number] [address] [place] [address], [place] [id number] 22 Jul, 2011 [facility] [address] [id number] [address] [place] [address], [place] [id number] 19 Jul, 2011 [facility] [address] [id number] [address] [place] [address], [place] [address] 16 Jul, 2011 [facility] [address] [id number] [address] [place] [address], [place] [id number] 14 Jul, 2011 [facility] [address] [id number] [address] [place] [address], [place] [id number] 07 Jul, 2011 [facility] [address] [id number] [address] [place] [address], [place] [address] 02 Jul, 2011 [facility] [address] [id number] [address] [place] [address], [place] [id number] 21 Jul, 2011 [facility] [address] [id number] [address] [place] [address], [place] [address] 15 Jul, 2011 [facility] [address] [id number] [address] [place] [address], [place] [id number] 13 Jul, 2011 [facility] [address] [id number] [address] [place] [address], [place] [address] 03 Jul, 2011 [facility] [address] [id number] [address] [place] [address], [place] [id number] 02 Jul, 2011 [facility] [address] [id number] [address] [place] [address], [place] [address] 24 Jun, 2011 [facility] [address] [id number] [address] [place] [address], [place] [address] 24 Jun, 2011 [facility] [address] [id number] [address] [place] [address], [place] [address] 13 Jun, 2011 [facility] [address] [id number] [address] [place] [address], [place] [id number] 11 Jun, 2011 [facility] [address] [id number] [address] [place] [address], [place] [address] Jun, [facility] [address] [id number] [address] [place] [address], [place] [address] Jun, [facility] [address] [id number] [address] [place] [address], [place] [address] Jun, [facility] [address] [id number] [address] [place] [address], [place] [address] May, [facility] [address] [id number] [address] [place] [address], [place] [address] May, [facility] [address] [id number] [address] [place] [address], [place] [address] May, [facility] [address] [id number] [address] [place] [address], [place] [address] May, [facility] [address] [id number] [address] [place] [address], [place] [id number] 14 May, 2011 [facility] [address] [id number] [address] [place] [address], [place] [address] May, [facility] [address] [id number] [address] [place] [address], [place] [address] May, [facility] [address] [id number] [address] [place] [address], [place] [address] May, [facility] [address] [id number] [address] [place] [address], [place] [address] May, [facility] [address] [id number] [address] [place] [address], [place] [address] May, [facility] [address] [id number] [address] [place] [address], [place] [address] 15 Apr, 2011 [facility] [address] [id number] [address] [place] [address], [place] [id number] 15 Apr, 2011 [facility] [address] [facility] [id number] [address] [place] [phone] Apr, [facility] [address] [facility] [id number] [address] [place] [id number] Apr, [facility] [address] [facility] [id number] [address] [place] [id number] Mar, [facility] [address] [facility] [id number] [address] [place] [phone] Mar, [facility] [address] [facility] [id number] [address] [place] [phone] Mar, [facility] [address] [facility] [id number] [address] [place] [id number] Mar, IMMUNIZATIONS No Known Immunizations SOCIAL HISTORY [...]
--- OUTSIDE RECORDS SUMMARY | 2020-01-03 17:52 | XMS REPORT ---
Author Author Pattie VIEIRA Organization [facility] Address [address] [place] [address] Care Team Providers Care Cage Manager Name Role Phone REYNALDO VIEIRA Unavailable PROBLEMS Type Condition ICD9-CM Code [id number] Code Onset Dates Condition S tatus SNOMED Code Problem FRANCIS (generalized anxiety disorder) F41.1 Active 84818236 Problem Thoracic disc herniation M51.24 Activ e 827521976 Problem Major depressive disorder in partial remission F32 .4 Active 13572693 Problem Seizure disorder G40.909 Active 128 155223 Problem Conversion disorder (or hysterical neurosis, conversion ty pe) F44.9 Active 86336588 Problem Constipation, unspecified constipation type K59.00 Active 32324418 Problem Mild episode of recurrent major depressive disorder F33.0 Active 819958030 Problem Restless leg syndrome G25.81 Active 89267584 Problem Nonadherence to medication Z91.14 Act vivian 830144965 Problem Slow transit constipation K59.01 Acti ve 35496008 Problem Atrophic vaginitis N95.2 Active 5 1367721 Problem Paroxysmal tachycardia I47.9 Active 88013188 Problem Other chronic pain G89.29 Active 8 6956744 Problem Mild intermittent asthma without complication J45. 20 Active 495437080 Problem Obesity (BMI 30.0-34.9) E66.9 Active [id number] Problem High blood pressure I10 Active 53060860 ALLERGIES No Information ENCOUNTERS Encounter Location Date Diagnosis [facility] [address] [facility] [id number] [address] [place] [phone] Nov, [facility] [address] [facility] [id number] [address] [place] [address] Nov, [address] [id number] [id number] Oct, Breast cancer screening Z12.[id number] [place] [address] 08 Oct, 2019 Breast cancer screening Z12. 39 [facility] [address] [id number] [address] [place] [address] Oct, [facility] [address] [id number] [address] [place] [address] Oct, [facility] [address] [facility] [id number] [address] [place] [address] September, [facility] [address] [id number] [address] [place] [address] September, [facility] [address] [facility] [id number] [address] [place] [address] September, Well woman exam with routine gynecological exam Z01.419 and Atrophic vaginitis N95.2 [facility] [address] [facility] [id number] [address] [place] [address] September, Major depressive disorder in partial remission F32.4 ; FRANCIS (generalized anxiety disorder) F41.1 ; Restless leg syndrome G25.81 and Nonadherence to medication Z91.14 [facility] [address] [facility] [id number] [address] [place] [address] September, [facility] [address] [facility] [id number] [address] [place] [address] Aug, [facility] [address] [id number] [address] [place] [id number] Aug, Dental examination Z01.20 [facility] [address] [id number] [address] [place] [id number] Aug, Dental examination Z01.20 an d Caries K02.9 [facility] [address] [id number] [address] [place] [phone] Aug, [facility] [address] [facility] [id number] [address] [place] [address] Aug, [facility] [address] [id number] [address] [place] [id number] 11 Aug, 2019 Other chronic pain G89.29 an d Back muscle spasm M62.830 [facility] [address] [id number] [address] [place] [id number] 07 Aug, 2019 [facility] [address] [facility] [id number] [address] [place] [address] Aug, Major depressive disorder in partial remission F32.4 ; FRANCIS (generalized anxiety disorder) F41.1 ; Restless leg syndrome G25.81 and Nonadherence to medication Z91.14 [facility] [address] [id number] [address] [place] [phone] Aug, [facility] [address] [id number] [address] [place] [address] Jul, [facility] [address] [facility] [id number] [address] [place] [address] Jul, [facility] [address] [id number] [address] [place] [address] Jul, Major depressive disorder in partial remission F32.4 ; FRANCIS (generalized anxiety disorder) F41.1 ; Restless leg syndrome G25.81 and High blood pressure I10 [facility] [address] [id number] [address] [place] [address] 17 Jul, 2019 [facility] [address] [facility] [id number] [address] [place] [address] Jul, [facility] [address] [id number] [address] [place] [phone] Jun, [facility] [address] [facility] [id number] [address] [place] [address] May, [facility] [address] [id number] [address] [place] [address] Apr, [facility] [address] [facility] [id number] [address] [place] [address] Apr, [facility] [address] [id number] [address] [place] [address] Mar, [facility] [address] [id number] [address] [place] [address] Mar, Major depressive disorder in partial remission F32.4 ; FRANCIS (generalized anxiety disorder) F41.1 and Restless leg syndrome G25.81 [facility] [address] [id number] [address] [place] [address] Mar, Obesity (BMI 30.0-34.9) E66. 9 [facility] [address] [id number] [address] [place] [address] Jan, [facility] [address] [id number] [address] [place] [address] Jan, Burn T30.0 [facility] [address] [id number] [address] [place] [phone] Dec, [facility] [address] [id number] [address] [place] [address] Nov, [facility] [address] [id number] [address] [place] [address] Nov, [facility] [address] [id number] [address] [place] [id number] Nov, Dental examination Z01.20 [facility] [address] [id number] [address] [place] [address] September, [facility] [address] [id number] [address] [place] [id number] September, Decay, teeth K02.9 and Denta l examination Z01.20 [facility] [address] [id number] [address] [place] [id number] September, Dental examination Z01.20 [facility] [address] [id number] [address] [place] [address] September, FRANCIS (generalized anxiety dis order) F41.1 ; Major depressive disorder in partial remission F32.4 and Restless leg syndrome G25.81 [facility] [address] [facility] [id number] [address] [place] [phone] Aug, [facility] [address] [facility] [id number] [address] [place] [address] Jul, [facility] [address] [place] [id number] [address] [place] [id number] Jul, Encounter to discuss test re sults Z71.2 [facility] [address] [facility] [id number] [address] [place] [address] Jul, Pelvic pain R10.2 ; Screenin g for breast cancer Z12.31 and Obesity (BMI 30.0-34.9) E66.9 [facility] [address] [place] [id number] [address] [place] [phone] Jul, Mild intermittent asthma wit hout complication J45.20 [facility] [address] [facility] [id number] [address] [place] [address] Jul, Major depressive disorder in partial remission F32.4 and FRANCIS (generalized anxiety disorder) F41.1 [facility] [address] [facility] [id number] [address] [place] [phone] Jul, [facility] [address] [place] [id number] [address] [place] [address] Jun, [facility] [address] [place] [id number] [address] [place] [address] May, Major depressive disorder in partial remission F32.4 ; FRANCIS (generalized anxiety disorder) F41.1 and Restless leg syndrome G25.81 [facility] [address] [facility] [id number] [address] [place] [address] Apr, [facility] [address] [facility] [id number] [address] [place] [address] Mar, [facility] [address] [id number] [address] [place] [address] 21 Jan, 2018 Pain in thoracic spine M54.6 and Other chronic pain G89.29 [facility] [address] [id number] [address] [place] [address] 14 Jan, 2018 [facility] [address] [id number] [address] [place] [address] 11 Jan, 2018 Mild episode of recurrent ma saray depressive disorder F33.0 ; FRANCIS (generalized anxiety disorder) F41.1 and Restless leg syndrome G25.81 [facility] [address] [id number] [address] [place] [address] Dec, [facility] [address] [id number] [address] [place] [address] Dec, Hospital discharge follow-up Z09 [facility] [address] [id number] [address] [place] [address] Nov, [facility] [address] [id number] [address] [place] [address] Nov, [facility] [address] [id number] [address] [place] [phone] September, [facility] [address] [id number] [address] [place] [address] September, [facility] [address] [id number] [address] [place] [address] September, Major depressive disorder in partial remission F32.4 ; FRANCIS (generalized anxiety disorder) F41.1 and Restless leg syndrome G25.81 [facility] [address] [id number] [address] [place] [address] September, [facility] [address] [id number] [address] [place] [phone] Jul, [facility] [address] [id number] [address] [place] [address] Jul, Dorsalgia, unspecified M54.9 [place] [address] [id number] [address] [place] [address] Jul, Mild episode of recurrent ma saray depressive disorder F33.0 and FRANCIS (generalized anxiety disorder) F41.1 [facility] [address] [id number] [address] [place] [address] May, [facility] [address] [id number] [address] [place] [address] May, Dysuria R30.0 and Acute cyst itis with hematuria N30.01 [facility] [address] [id number] [address] [place] [address] Apr, [place] [address] [facility] [id number] [address] [place] [address] Apr, Major depressive disorder in partial remission F32.4 and FRANCIS (generalized anxiety disorder) F41.1 [place] [address] [id number] [address] [place] [address] Mar, Paroxysmal tachycardia I47.9 [facility] [address] [id number] [address] [place] [address] Mar, Paroxysmal tachycardia I47.9 and Pain of left lower extremity M79.605 [place] [address] [id number] [address] [place] [address] Mar, FRANCIS (generalized anxiety dis order) F41.1 and Major depressive disorder in partial remission F32.4 [facility] [address] [id number] [address] [place] [address] Jan, [facility] [address] [id number] [address] [place] [address] Jan, [place] [address] [facility] [id number] [address] [place] [address] Jan, [facility] [address] [id number] [address] [place] [address] Dec, Constipation, unspecified co nstipation type K59.00 [facility] [address] [id number] [address] [place] [address] Dec, [facility] [address] [id number] [address] [place] [address] Nov, [facility] [address] [facility] [id number] [address] [place] [address] Nov, Major depressive disorder in partial remission F32.4 and FRANCIS (generalized anxiety disorder) F41.1 [facility] [address] [id number] [address] [place] [address] Oct, Abdominal pain R10.9 and Slo w transit constipation K59.01 [place] [address] [facility] [id number] [address] [place] [address] Aug, Major depressive disorder in partial remission F32.4 ; FRANCIS (generalized anxiety disorder) F41.1 ; Conversion disorder (or hysterical neurosis, conversion type) F44.9 ; Dorsalgia, unspecified M54.9 and Long-term use of high-risk medication Z79.899 [place] [address] [facility] [id number] [address] [place] [address] Aug, [place] [address] [facility] [id number] [address] [place] [address] Jul, Paroxysmal tachycardia I47.9 [place] [address] [facility] [id number] [address] [place] [address] Jul, Paroxysmal tachycardia I47.9 [facility] [address] [id number] [address] [place] [address] Jun, [place] [address] [facility] [id number] [address] [place] [address] Jun, Major depressive disorder in partial remission F32.4 ; FRANCIS (generalized anxiety disorder) F41.1 and Conversion disorder (or hysterical neurosis, conversion type) F44.9 [facility] [address] [facility] [id number] [address] [place] [address] May, Pelvic pain R10.2 [facility] [address] [facility] [id number] [address] [place] [address] Apr, Gastroenteritis K52.9 [facility] [address] [facility] [id number] [address] [place] [address] Apr, Blood in urine R31.9 and Acu te cystitis with hematuria N30.01 [facility] [address] [facility] [id number] [address] [place] [address] Apr, Major depressive disorder in partial remission F32.4 ; FRANCIS (generalized anxiety disorder) F41.1 and Conversion disorder (or hysterical neurosis, conversion type) F44.9 [facility] [address] [place] [id number] [address] [place] [address] Apr, [place] [address] [address] Apr, Abnormal mammogram R92.8 [facility] [address] [facility] [id number] [place] [address] Mar, [place] [address] [place] [id number] [place] [address] Mar, Gastroenteritis K52.9 and Se izure disorder G40.909 [facility] [address] [place] [id number] [address] [place] [address] Dec, [facility] [address] [facility] [id number] [address] [place] [address] Dec, Other headache syndrome G44. 89 [facility] [address] [place] [id number] [address] [place] [phone] Dec, [place] [address] [place] [id number] [place] [address] Dec, Thoracic disc herniation M51 .24 [facility] [address] [place] [id number] [address] [place] [address] Dec, [facility] [address] [id number] [address] [place] [address] Nov, Major depressive disorder in partial remission F32.4 and FRANCIS (generalized anxiety disorder) F41.1 [facility] [address] [id number] [address] [place] [address], [place] [address] Nov, [facility] [address] [id number] [address] [place] [address] Nov, Dorsalgia, unspecified M54.9 [facility] [address] [id number] [address] [place] [address], [place] [address] Oct, [facility] [address] [id number] [address] [place] [address], [place] [address] September, [facility] [address] [id number] [address] [place] [address] Aug, [facility] [address] [id number] [address] [place] [address] Aug, Major depressive disorder in partial remission F32.4 and FRANCIS (generalized anxiety disorder) F41.1 [facility] [address] [id number] [address] [place] [address] Aug, [facility] [address] [id number] [address] [place] [address] Jul, Abnormal mammogram R92.8 [facility] [address] [id number] [address] [place] [address] Jul, [facility] [address] [id number] [address] [place] [address] Jul, [facility] [address] [id number] [address] [place] [address] 14 Jul, 2015 [facility] [address] [id number] [address] [place] [address] Jul, [facility] [address] [id number] [address] [place] [address] Jul, [facility] [address] [id number] [address] [place] [address] Jul, [facility] [address] [id number] [address] [place] [address] Jun, Major depressive disorder in partial remission F32.4 and FRANCIS (generalized anxiety disorder) F41.1 [facility] [address] [id number] [address] [place] [phone] Jun, [facility] [address] [id number] [address] [place] [address] May, [facility] [address] [id number] [address] [place] [address] Apr, [facility] [address] [id number] [address] [place] [address] Mar, Major depressive disorder, r ecurrent episode, moderate F33.1 ; PTSD (post-traumatic stress disorder) F43.10 and FRANCIS (generalized anxiety disorder) F41.1 [facility] [address] [id number] [address] [place] [id number] Mar, [facility] [address] [id number] [address] [place] [address] Mar, [facility] [address] [id number] [address] [place] [phone] Mar, [facility] [address] [id number] [address] [place] [address] Mar, [facility] [address] [id number] [address] [place] [address] Jan, [facility] [address] [id number] [address] [place] [address] Jan, [facility] [address] [id number] [address] [place] [address] Jan, [facility] [address] [id number] [address] [place] [address] Jan, Thoracic disc herniation 722 .11 [facility] [address] [id number] [address] [place] [address] Dec, [facility] [address] [id number] [address] [place] [address] Dec, [facility] [address] [id number] [address] [place] [id number] Dec, [facility] [address] [id number] [address] [place] [phone] Nov, [facility] [address] [id number] [address] [place] [phone] Nov, Generalized anxiety disorder 300.02 ; Posttraumatic stress disorder 309.81 and Major depressive disorder, recurrent episode, moderate 296.32 [facility] [address] [id number] [address] [place] [id number] Nov, [facility] [address] [id number] [address] [place] [id number] Nov, [facility] [address] [id number] [address] [place] [id number] Oct, [facility] [address] [id number] [address] [place] [id number] Oct, [facility] [address] [id number] [address] [place] [id number] Oct, [facility] [address] [id number] [address] [place] [phone] September, [facility] [address] [id number] [address] [place] [phone] September, [facility] [address] [id number] [address] [place] [id number] Aug, [facility] [address] [id number] [address] [place] [id number] Aug, [facility] [address] [id number] [address] [place] [address], [place] [id number] 25 Jul, 2014 [facility] [address] [id number] [address] [place] [address], [place] [id number] Jul, [facility] [address] [id number] [address] [place] [address], [place] [id number] 17 Jul, 2014 [facility] [address] [id number] [address] [place] [address], [place] [address] 17 Jul, 2014 [facility] [address] [id number] [address] [place] [address], [place] [id number] 16 Jul, 2014 [facility] [address] [id number] [address] [place] [address], [place] [id number] 16 Jul, 2014 [facility] [address] [id number] [address] [place] [address], [place] [address] 19 Jul, 2014 [facility] [address] [id number] [address] [place] [address], [place] [address] Jul, [facility] [address] [id number] [address] [place] [address], [place] [address] Jul, [facility] [address] [id number] [address] [place] [address], [place] [address] Jul, [facility] [address] [id number] [address] [place] [address], [place] [address] Jun, [facility] [address] [id number] [address] [place] [address], [place] [address] Jun, [facility] [address] [id number] [address] [place] [address], [place] [address] Jun, [facility] [address] [id number] [address] [place] [address], [place] [address] May, [facility] [address] [id number] [address] [place] [address], [place] [address] Apr, [facility] [address] [id number] [address] [place] [address], [place] [address] Apr, [facility] [address] [id number] [address] [place] [address], [place] [address] Apr, [facility] [address] [id number] [address] [place] [address], [place] [address] Apr, [facility] [address] [id number] [address] [place] [address], [place] [address] Apr, [facility] [address] [id number] [address] [place] [address], [place] [address] Apr, [facility] [address] [id number] [address] [place] [address], [place] [address] Apr, [facility] [address] [id number] [address] [place] [address], [place] [address] Apr, [facility] [address] [id number] [address] [place] [address], [place] [address] Mar, [facility] [address] [id number] [address] [place] [address], [place] [address] Mar, [facility] [address] [id number] [address] [place] [address], [place] [address] Mar, [facility] [address] [id number] [address] [place] [address], [place] [address] Mar, [facility] [address] [id number] [address] [place] [address] Mar, [facility] [address] [id number] [address] [place] [address] Mar, [facility] [address] [id number] [address] [place] [address], [place] [address] Mar, [facility] [address] [id number] [address] [place] [address], [place] [address] Mar, [facility] [address] [id number] [address] [place] [address], [place] [address] Mar, [facility] [address] [id number] [address] [place] [address], [place] [address] 2013 [facility] [address] [id number] [address] [place] [address], [place] [address] 17 Mar, 2013 [facility] [address] [id number] [address] [place] [address], [place] [address] 14 Mar, 2013 [facility] [address] [id number] [address] [place] [address], [place] [address] 14 Mar, 2013 [facility] [address] [id number] [address] [place] [address], [place] [address] 07 Mar, 2013 [facility] [address] [id number] [address] [place] [address], [place] [address] 07 Mar, 2013 [facility] [address] [id number] [address] [place] [address], [place] [address] 06 Mar, 2013 [facility] [address] [id number] [address] [place] [address], [place] [address] 06 Mar, 2013 [facility] [address] [id number] [address] [place] [address], [place] [address] 19 Sep, 2013 [facility] [address] [id number] [address] [place] [address], [place] [address] 19 Sep, 2013 [facility] [address] [id number] [address] [place] [address], [place] [address] 09 Sep, 2013 [facility] [address] [id number] [address] [place] [address], [place] [address] 09 Sep, 2013 [facility] [address] [id number] [address] [place] [address], [place] [address] 05 Sep, 2013 [facility] [address] [id number] [address] [place] [address], [place] [address] 05 Sep, 2013 [facility] [address] [id number] [address] [place] [address], [place] [address] 05 Sep, 2013 [facility] [address] [id number] [address] [place] [address], [place] [address] 05 Sep, 2013 [facility] [address] [id number] [address] [place] [address], [place] [address] Jan, 2013 [facility] [address] [id number] [address] [place] [address], [place] [address] Jan, [facility] [address] [id number] [address] [place] [address], [place] [address] Jan, 2013 [facility] [address] [id number] [address] [place] [address], [place] [address] Jan, [facility] [address] [id number] [address] [place] [address], [place] [address] Jan, [facility] [address] [id number] [address] [place] [address], [place] [address] Dec, [facility] [address] [id number] [address] [place] [address], [place] [address] Dec, [facility] [address] [id number] [address] [place] [address], [place] [address] Dec, [facility] [address] [id number] [address] [place] [address], [place] [address] Dec, [facility] [address] [id number] [address] [place] [address], [place] [address] Dec, [facility] [address] [id number] [address] [place] [address], [place] [address] Dec, [facility] [address] [place] [id number] Dec, [facility] [address] [place] [id number] Dec, [facility] [address] [id number] [address] [place] [address], [place] [address] Dec, [facility] [address] [id number] [address] [place] [address], [place] [address] Dec, [facility] [address] [id number] [address] [place] [address], [place] [address] Dec, [facility] [address] [id number] [facility] [place] [address] Dec, [facility] [address] [id number] [facility] [place] [address] Nov, [facility] [address] [id number] [facility] [place] [address] Nov, [facility] [address] [id number] [address] [place] [address], [place] [address] Nov, [facility] [address] [id number] [address] [place] [address], [place] [address] Nov, [facility] [address] [id number] [address] [place] [address], [place] [address] Nov, [facility] [address] [id number] [address] [place] [address], [place] [address] Nov, [facility] [address] [id number] [address] [place] [address], [place] [address] Nov, [facility] [address] [id number] [address] [place] [address], [place] [address] Nov, [facility] [address] [id number] [address] [place] [address], [place] [address] Nov, [facility] [address] [id number] [address] [place] [address], [place] [address] Nov, [facility] [address] [id number] [address] [place] [address], [place] [address] Nov, [facility] [address] [id number] [address] [place] [address], [place] [address] Nov, [facility] [address] [id number] [address] [place] [address], [place] [address] Nov, [facility] [address] [id number] [address] [place] [address], [place] [address] Oct, [facility] [address] [id number] [address] [place] [address], [place] [address] Oct, [facility] [address] [id number] [facility] [place] [address] Oct, [facility] [address] [id number] [address] [place] [address], [place] [address] Oct, [facility] [address] [id number] [address] [place] [address], [place] [address] Oct, [facility] [address] [id number] [address] [place] [address], [place] [address] Oct, [facility] [address] [id number] [address] [place] [address], [place] [address] Oct, [facility] [address] [id number] [address] [place] [address], [place] [address] Oct, [facility] [address] [id number] [address] [place] [address], [place] [address] Oct, [facility] [address] [id number] [address] [place] [address], [place] [address] Oct, [facility] [address] [id number] [address] [place] [address], [place] [address] Oct, [facility] [address] [id number] [address] [place] [address], [place] [address] Oct, [facility] [address] [id number] [address] [place] [address], [place] [address] September, [facility] [address] [id number] [address] [place] [address], [place] [address] September, [facility] [address] [id number] [address] [place] [address], [place] [address] September, [facility] [address] [id number] [address] [place] [address], [place] [address] September, [facility] [address] [id number] [address] [place] [address], [place] [address] Aug, [facility] [address] [id number] [facility] [place] [address] Aug, [facility] [address] [id number] [facility] [place] [address] Aug, [facility] [address] [id number] [facility] [place] [address] Aug, [facility] [address] [id number] [address] [place] [address], [place] [address] Aug, [facility] [address] [id number] [address] [place] [address], [place] [address] Aug, [facility] [address] [id number] [address] [place] [address], [place] [address] Aug, [facility] [address] [id number] [address] [place] [address], [place] [address] Jul, [facility] [address] [id number] [address] [place] [address], [place] [address] Jul, [facility] [address] [id number] [address] [place] [address], [place] [address] Jul, [facility] [address] [id number] [address] [place] [address], [place] [address] Jul, [facility] [address] [id number] [address] [place] [address], [place] [address] Jul, [facility] [address] [id number] [address] [place] [address], [place] [address] Jul, [facility] [address] [id number] [address] [place] [address], [place] [address] Jul, [facility] [address] [id number] [address] [place] [address], [place] [address] Jul, [facility] [address] [id number] [address] [place] [address], [place] [address] Jul, [facility] [address] [id number] [address] [place] [address], [place] [address] Jul, [facility] [address] [id number] [facility] [place] [address] 18 Jul, 2013 [facility] [address] [id number] [address] [place] [address], [place] [address] 18 Jul, 2013 [facility] [address] [id number] [address] [place] [address], [place] [address] 14 Jul, 2013 [facility] [address] [id number] [address] [place] [address], [place] [address] 14 Jul, 2013 [facility] [address] [id number] [address] [place] [address], [place] [address] Jul, [facility] [address] [id number] [address] [place] [address], [place] [address] Jul, [facility] [address] [id number] [address] [place] [address], [place] [address] Jul, [facility] [address] [id number] [address] [place] [address], [place] [address] Jul, [facility] [address] [id number] [address] [place] [address], [place] [address] Jun, [facility] [address] [id number] [address] [place] [address], [place] [address] Jun, [facility] [address] [id number] [address] [place] [address], [place] [address] Jun, [facility] [address] [id number] [address] [place] [address], [place] [address] 15 Jun, 2013 [facility] [address] [id number] [address] [place] [address], [place] [address] Jun, [facility] [address] [id number] [address] [place] [address], [place] [address] Jun, [facility] [address] [id number] [address] [place] [address], [place] [address] 14 Jun, 2013 [facility] [address] [id number] [address] [place] [address], [place] [address] 14 Jun, 2013 [facility] [address] [id number] [address] [place] [address], [place] [address] 14 Jun, 2013 [facility] [address] [id number] [address] [place] [address], [place] [address] 14 Jun, 2013 [facility] [address] [id number] [address] [place] [address], [place] [address] 27 May, 2013 [facility] [address] [id number] [address] [place] [address], [place] [address] 27 May, 2013 [facility] [address] [id number] [address] [place] [address], [place] [address] 26 May, 2013 [facility] [address] [id number] [address] [place] [address], [place] [address] 19 May, 2013 [facility] [address] [id number] [address] [place] [address], [place] [address] 19 May, 2013 [facility] [address] [id number] [address] [place] [address], [place] [address] 16 May, 2013 [facility] [address] [id number] [address] [place] [address], [place] [address] 16 May, 2013 [facility] [address] [id number] [address] [place] [address], [place] [address] 16 May, 2013 [facility] [address] [id number] [address] [place] [address], [place] [address] 16 May, 2013 [facility] [address] [id number] [address] [place] [address], [place] [address] 13 May, 2013 [facility] [address] [id number] [address] [place] [address], [place] [address] 13 May, 2013 [facility] [address] [id number] [address] [place] [address], [place] [address] 11 May, 2013 [facility] [address] [id number] [address] [place] [address], [place] [address] Apr, [facility] [address] [id number] [address] [place] [address], [place] [address] 18 Apr, 2013 [facility] [address] [id number] [address] [place] [address], [place] [address] 18 Apr, 2013 [facility] [address] [id number] [address] [place] [address], [place] [address] Apr, [facility] [address] [id number] [address] [place] [address], [place] [address] Apr, [facility] [address] [id number] [address] [place] [address], [place] [address] Apr, [facility] [address] [id number] [address] [place] [address], [place] [address] Apr, [facility] [address] [id number] [address] [place] [address], [place] [address] Apr, [facility] [address] [id number] [address] [place] [address] Apr, [facility] [address] [id number] [address] [place] [address], [place] [address] Apr, [facility] [address] [id number] [address] [place] [address] Apr, [facility] [address] [id number] [address] [place] [address] Mar, [facility] [address] [id number] [address] [place] [address] Mar, [facility] [address] [id number] [address] [place] [address] Mar, [facility] [address] [id number] [address] [place] [address] Mar, [facility] [address] [id number] [address] [place] [address] Mar, [facility] [address] [id number] [address] [place] [address] Mar, [facility] [address] [id number] [address] [place] [address], [place] [address] Mar, [facility] [address] [id number] [address] [place] [address], [place] [address] Mar, [facility] [address] [id number] [address] [place] [address], [place] [address] Mar, [facility] [address] [id number] [address] [place] [address], [place] [address] Mar, [facility] [address] [id number] [address] [place] [address], [place] [address] Mar, [facility] [address] [id number] [address] [place] [address], [place] [address] Mar, [facility] [address] [id number] [address] [place] [address], [place] [address] 30 Jan, 2013 [facility] [address] [id number] [address] [place] [address], [place] [address] Jan, [facility] [address] [id number] [address] [place] [address], [place] [address] 20 Jan, 2013 [facility] [address] [id number] [address] [place] [address], [place] [address] Jan, [facility] [address] [id number] [address] [place] [address], [place] [address] Dec, [facility] [address] [id number] [address] [place] [address], [place] [address] Dec, [facility] [address] [id number] [address] [place] [address], [place] [address] Dec, [facility] [address] [id number] [address] [place] [address], [place] [address] Dec, [facility] [address] [id number] [address] [place] [address], [place] [address] Dec, [facility] [address] [id number] [facility] [place] [address] Dec, [facility] [address] [id number] [address] [place] [address], [place] [address] Dec, [facility] [address] [id number] [address] [place] [address], [place] [address] Dec, [facility] [address] [id number] [address] [place] [address], [place] [address] Dec, [facility] [address] [id number] [address] [place] [address], [place] [address] Nov, [facility] [address] [id number] [address] [place] [address], [place] [address] Nov, [facility] [address] [id number] [address] [place] [address], [place] [address] Nov, [facility] [address] [id number] [address] [place] [address], [place] [address] Nov, [facility] [address] [id number] [address] [place] [address], [place] [address] Nov, [facility] [address] [id number] [address] [place] [address], [place] [address] Nov, [facility] [address] [id number] [address] [place] [address], [place] [address] Nov, [facility] [address] [id number] [address] [place] [address], [place] [address] Nov, [facility] [address] [id number] [address] [place] [address], [place] [address] Oct, [facility] [address] [id number] [address] [place] [address], [place] [address] Oct, [facility] [address] [id number] [address] [place] [address], [place] [address] Oct, [facility] [address] [id number] [address] [place] [address], [place] [address] Oct, [facility] [address] [id number] [address] [place] [address], [place] [address] Oct, [facility] [address] [id number] [address] [place] [address], [place] [address] Oct, [facility] [address] [id number] [address] [place] [address], [place] [address] Oct, [facility] [address] [id number] [address] [place] [address], [place] [address] Oct, [facility] [address] [id number] [address] [place] [address], [place] [address] Oct, [facility] [address] [id number] [address] [place] [address], [place] [address] 18 Oct, 2012 [facility] [address] [id number] [address] [place] [address], [place] [address] 17 Oct, 2012 [facility] [address] [id number] [address] [place] [address], [place] [address] 14 Oct, 2012 [facility] [address] [id number] [address] [place] [address], [place] [address] 07 Oct, 2012 [facility] [address] [id number] [address] [place] [address], [place] [address] 30 Sep, 2012 [facility] [address] [id number] [address] [place] [address], [place] [address] September, [facility] [address] [id number] [address] [place] [address], [place] [address] September, [facility] [address] [id number] [address] [place] [address], [place] [address] Aug, [facility] [address] [id number] [address] [place] [address], [place] [address] 24 Aug, 2012 [facility] [address] [id number] [address] [place] [address], [place] [address] 18 Aug, 2012 [facility] [address] [id number] [address] [place] [address], [place] [address] 18 Aug, 2012 [facility] [address] [id number] [address] [place] [address], [place] [address] 18 Aug, 2012 [facility] [address] [id number] [address] [place] [address], [place] [address] 08 Aug, 2012 [facility] [facility] [address] [id number] [address] [place] [address], [place] [address] 05 Aug, 2012 [facility] [address] [id number] [address] [place] [address], [place] [address] Jul, [facility] [address] [id number] [address] [place] [address], [place] [address] Jul, [facility] [address] [id number] [address] [place] [address], [place] [address] Jul, [facility] [address] [id number] [address] [place] [address], [place] [address] Jul, [facility] [address] [id number] [address] [place] [address], [place] [address] Jul, [facility] [address] [id number] [address] [place] [address], [place] [address] Jul, [facility] [address] [id number] [address] [place] [address], [place] [address] Jul, [facility] [address] [id number] [address] [place] [address], [place] [address] Jul, [facility] [address] [id number] [address] [place] [address], [place] [address] Jul, [facility] [address] [id number] [address] [place] [address], [place] [address] 19 Jul, 2012 [facility] [address] [id number] [address] [place] [address], [place] [address] 11 Jul, 2012 [facility] [address] [id number] [address] [place] [address], [place] [address] 06 Jul, 2012 [facility] [address] [id number] [address] [place] [address], [place] [address] Jul, [facility] [address] [id number] [address] [place] [address], [place] [address] 24 Jun, 2012 [facility] [address] [id number] [address] [place] [address], [place] [address] Jun, [facility] [address] [id number] [address] [place] [address], [place] [address] Jun, [facility] [address] [id number] [address] [place] [address], [place] [address] 17 Jun, 2012 [facility] [address] [id number] [address] [place] [address], [place] [address] 15 Jun, 2012 [facility] [address] [id number] [address] [place] [address], [place] [address] Jun, [facility] [address] [id number] [address] [place] [address], [place] [address] Jun, [facility] [address] [id number] [address] [place] [address], [place] [address] May, [facility] [address] [id number] [address] [place] [address], [place] [address] May, [facility] [address] [id number] [address] [place] [address], [place] [address] May, [facility] [address] [id number] [address] [place] [address], [place] [address] May, [facility] [address] [id number] [address] [place] [address], [place] [address] May, [facility] [address] [id number] [address] [place] [address], [place] [address] 24 May, 2012 [facility] [address] [id number] [address] [place] [address], [place] [address] May, [facility] [address] [id number] [address] [place] [address], [place] [address] May, [facility] [address] [id number] [address] [place] [address], [place] [address] May, [facility] [address] [id number] [address] [place] [address], [place] [address] May, [facility] [address] [id number] [address] [place] [address], [place] [address] Apr, [facility] [address] [id number] [address] [place] [address], [place] [address] Apr, [facility] [address] [id number] [address] [place] [address], [place] [address] Apr, [facility] [address] [id number] [address] [place] [address], [place] [address] Apr, [facility] [address] [id number] [address] [place] [address], [place] [address] Apr, [facility] [address] [id number] [address] [place] [address], [place] [address] Apr, [facility] [address] [id number] [address] [place] [address], [place] [address] Apr, [facility] [address] [id number] [address] [place] [address], [place] [address] Apr, [facility] [address] [id number] [address] [place] [address], [place] [address] Apr, [facility] [address] [id number] [address] [place] [address], [place] [address] Apr, [facility] [address] [id number] [address] [place] [address], [place] [address] Apr, [facility] [address] [id number] [address] [place] [address], [place] [address] Apr, [facility] [address] [id number] [address] [place] [address], [place] [address] Mar, [facility] [address] [id number] [address] [place] [address], [place] [address] Mar, 2011 [facility] [address] [id number] [address] [place] [address], [place] [address] Mar, 2011 [facility] [address] [id number] [address] [place] [address], [place] [address] Mar, 2011 [facility] [address] [id number] [address] [place] [address], [place] [address] Mar, 2011 [facility] [address] [id number] [address] [place] [address], [place] [address] Mar, 2011 [facility] [address] [id number] [address] [place] [address], [place] [address] Mar, 2011 [facility] [address] [id number] [address] [place] [address], [place] [address] Mar, 2011 [facility] [address] [id number] [address] [place] [address], [place] [address] Mar, 2011 [facility] [address] [id number] [address] [place] [address], [place] [address] Mar, [facility] [address] [id number] [address] [place] [address] Mar, [facility] [address] [id number] [address] [place] [address] Mar, [facility] [address] [id number] [address] [place] [address] Mar, [facility] [address] [id number] [address] [place] [address], [place] [address] Mar, [facility] [address] [id number] [address] [place] [address] Mar, [facility] [address] [id number] [address] [place] [address] Mar, [facility] [address] [id number] [address] [place] [address] 25 Sep, 2011 [facility] [address] [id number] [address] [place] [address], [place] [address] 24 Sep, 2011 [facility] [address] [id number] [address] [place] [address], [place] [address] 22 Jan, 2011 [facility] [address] [id number] [address] [place] [address], [place] [address] 22 Jan, 2011 [facility] [address] [id number] [address] [place] [address], [place] [address] 21 Jan, 2011 [facility] [address] [id number] [address] [place] [address], [place] [address] 18 Jan, 2011 [facility] [address] [id number] [address] [place] [address], [place] [address] 14 Jan, 2012 [facility] [address] [id number] [address] [place] [address], [place] [address] 07 Jan, 2012 [facility] [address] [id number] [address] [place] [address], [place] [address] 15 Dec, 2011 [facility] [address] [id number] [address] [place] [address], [place] [address] 10 Dec, 2011 [facility] [address] [id number] [address] [place] [address], [place] [address] Dec, [facility] [address] [id number] [address] [place] [address], [place] [address] Dec, [facility] [address] [id number] [address] [place] [address], [place] [address] Dec, [facility] [address] [id number] [address] [place] [address], [place] [address] Dec, [facility] [address] [id number] [address] [place] [address], [place] [address] Dec, [facility] [address] [id number] [address] [place] [address], [place] [address] Nov, [facility] [address] [id number] [address] [place] [address], [place] [address] 06 Oct, 2011 [facility] [address] [id number] [address] [place] [address], [place] [address] 05 Aug, 2011 [facility] [address] [id number] [address] [place] [address], [place] [address] 22 Jul, 2011 [facility] [address] [id number] [address] [place] [address], [place] [address] 19 Jul, 2011 [facility] [address] [id number] [address] [place] [address], [place] [address] 16 Jul, 2011 [facility] [address] [id number] [address] [place] [address], [place] [address] 14 Jul, 2011 [facility] [address] [id number] [address] [place] [address], [place] [address] 07 Jul, 2011 [facility] [address] [id number] [address] [place] [address], [place] [address] 02 Jul, 2011 [facility] [address] [id number] [address] [place] [address], [place] [address] 21 Jul, 2011 [facility] [address] [id number] [address] [place] [address], [place] [address] 15 Jul, 2011 [facility] [address] [id number] [address] [place] [address], [place] [address] 13 Jul, 2011 [facility] [address] [id number] [address] [place] [address], [place] [address] 03 Jul, 2011 [facility] [address] [id number] [address] [place] [address], [place] [address] 02 Jul, 2011 [facility] [address] [id number] [address] [place] [address], [place] [address] 24 Jun, 2011 [facility] [address] [id number] [address] [place] [address], [place] [address] 24 Jun, 2011 [facility] [address] [id number] [address] [place] [address], [place] [address] Jun, [facility] [address] [id number] [address] [place] [address], [place] [address] Jun, [facility] [address] [id number] [address] [place] [address], [place] [address] Jun, [facility] [address] [id number] [address] [place] [address], [place] [address] Jun, [facility] [address] [id number] [address] [place] [address], [place] [address] Jun, [facility] [address] [id number] [address] [place] [address], [place] [address] May, [facility] [address] [id number] [address] [place] [address], [place] [address] May, [facility] [address] [id number] [address] [place] [address], [place] [address] May, [facility] [address] [id number] [address] [place] [address], [place] [address] May, [facility] [address] [id number] [address] [place] [address], [place] [address] May, [facility] [address] [id number] [address] [place] [address], [place] [address] May, [facility] [address] [id number] [address] [place] [address], [place] [address] May, [facility] [address] [id number] [address] [place] [address], [place] [address] May, [facility] [address] [id number] [address] [place] [address], [place] [address] May, [facility] [address] [id number] [address] [place] [address], [place] [address] May, [facility] [address] [id number] [address] [place] [address], [place] [address] 15 Apr, 2011 [facility] [address] [id number] [address] [place] [address] Apr, [facility] [address] [id number] [address] [place] [address] Apr, [facility] [address] [facility] [id number] [address] [place] [address] Apr, [facility] [address] [facility] [id number] [address] [place] [address] Mar, [facility] [address] [facility] [id number] [address] [place] [address] Mar, [facility] [address] [facility] [id number] [address] [place] [address] Mar, [facility] [address] [facility] [id number] [address] [place] [address] Mar, IMMUNIZATIONS No Known Immunizations SOCIAL HISTORY [...] History Colonoscopy Hospitalization History surgeries Hospitalization History [facility] for seizures 03/24/16 Hospitalization History [facility] for kidney stones/hypertension 0 12/2017
--- OUTSIDE RECORDS SUMMARY | 2020-01-03 17:52 | XMS REPORT ---
Author Author Pattie Moffett Doctor Organization [facility] Address Unknown Phone Unavailable Care Team Providers Care Medication Aid Name Role Phone Migration, Doctor Unavailable Unavailable PROBLEMS Type Condition ICD9-CM Code [id number] Code Onset Dates Condition S tatus SNOMED Code Problem FRANCIS (generalized anxiety disorder) F41.1 Active 73941178 Problem Thoracic disc herniation M51.24 Activ e 733757708 Problem Major depressive disorder in partial remission F32 .4 Active 06989167 Problem Seizure disorder G40.909 Active 128 932116 Problem Conversion disorder (or hysterical neurosis, conversion ty pe) F44.9 Active 36544356 Problem Constipation, unspecified constipation type K59.00 Active 17486460 Problem Mild episode of recurrent major depressive disorder F33.0 Active 777357186 Problem Restless leg syndrome G25.81 Active 27660044 Problem Nonadherence to medication Z91.14 Act vivian 304777807 Problem Slow transit constipation K59.01 Acti ve 52109384 Problem Atrophic vaginitis N95.2 Active 5 7202458 Problem Paroxysmal tachycardia I47.9 Active 27481998 Problem Other chronic pain G89.29 Active 8 0473284 Problem Mild intermittent asthma without complication J45. 20 Active 656491077 Problem Obesity (BMI 30.0-34.9) E66.9 Active 800071006920088 Problem High blood pressure I10 Active 96619037 ALLERGIES No Information ENCOUNTERS Encounter Location Date Diagnosis [facility] [address] [facility] [id number] [address] [place] [address] 08 Nov, 2019 [facility] [address] [facility] [id number] [address] [place] [address] Nov, [address] [id number] [id number] 26 Oct, 2019 Breast cancer screening Z12.[address] [place] [id number] [address] 08 Oct, 2019 Breast cancer screening Z12. 39 [facility] [address] [id number] [address] [place] [address] Oct, [facility] [address] [id number] [address] [place] [address] Oct, [facility] [address] [id number] [address] [place] [address] September, [facility] [address] [id number] [address] [place] [address] September, [facility] [address] [id number] [address] [place] [address] September, Well woman exam with routine gynecological exam Z01.419 and Atrophic vaginitis N95.2 [facility] [address] [id number] [address] [place] [address] September, Major depressive disorder in partial remission F32.4 ; FRANCIS (generalized anxiety disorder) F41.1 ; Restless leg syndrome G25.81 and Nonadherence to medication Z91.14 [facility] [address] [id number] [address] [place] [address] September, [facility] [address] [id number] [address] [place] [address] Aug, [facility] [address] [facility] [id number] [address] [place] [id number] Aug, Dental examination Z01.20 [facility] [address] [id number] [address] [place] [id number] Aug, Dental examination Z01.20 an d Caries K02.9 [facility] [address] [id number] [address] [place] [address] Aug, [facility] [address] [id number] [address] [place] [address] Aug, [facility] [address] [id number] [address] [place] [address] Aug, Other chronic pain G89.29 an d Back muscle spasm M62.830 [facility] [address] [id number] [address] [place] [address] 07 Aug, 2019 [facility] [address] [id number] [address] [place] [address] Aug, Major depressive disorder in partial remission F32.4 ; FRANCIS (generalized anxiety disorder) F41.1 ; Restless leg syndrome G25.81 and Nonadherence to medication Z91.14 [facility] [address] [id number] [address] [place] [address] Aug, [facility] [address] [id number] [address] [place] [address] Jul, [facility] [address] [id number] [address] [place] [address] Jul, [facility] [address] [id number] [address] [place] [address] Jul, Major depressive disorder in partial remission F32.4 ; FRANCIS (generalized anxiety disorder) F41.1 ; Restless leg syndrome G25.81 and High blood pressure I10 [facility] [address] [id number] [address] [place] [address] 17 Jul, 2019 [facility] [address] [id number] [address] [place] [address] Jul, [facility] [address] [id number] [address] [place] [address] Jun, [facility] [address] [id number] [address] [place] [address] May, [facility] [address] [id number] [address] [place] [address] Apr, [facility] [address] [id number] [address] [place] [address] Apr, [facility] [address] [id number] [address] [place] [address] Mar, [facility] [address] [id number] [address] [place] [address] Mar, Major depressive disorder in partial remission F32.4 ; FRANCIS (generalized anxiety disorder) F41.1 and Restless leg syndrome G25.81 [facility] [address] [id number] [address] [place] [address] Mar, Obesity (BMI 30.0-34.9) E66. 9 [facility] [address] [id number] [address] [place] [address] Jan, [facility] [address] [id number] [address] [place] [address] Jan, Burn T30.0 [facility] [address] [id number] [address] [place] [address] Dec, [facility] [address] [id number] [address] [place] [address] Nov, [facility] [address] [id number] [address] [place] [address] Nov, [facility] [address] [id number] [address] [place] [id number] Nov, Dental examination Z01.20 [facility] [address] [id number] [address] [place] [address] September, [facility] [address] [id number] [address] [place] [id number] September, Decay, teeth K02.9 and Denta l examination Z01.20 [facility] [address] [id number] [address] [place] [id number] September, Dental examination Z01.20 [facility] [address] [id number] [address] [place] [address] September, FRANCIS (generalized anxiety dis order) F41.1 ; Major depressive disorder in partial remission F32.4 and Restless leg syndrome G25.81 [facility] [address] [address] Aug, [facility] [address] [address] Jul, [facility] [address] [place] [id number] [place] [address] Jul, Encounter to discuss test re sults Z71.2 [facility] [address] [address] Jul, Pelvic pain R10.2 ; Screenin g for breast cancer Z12.31 and Obesity (BMI 30.0-34.9) E66.9 [place] [address] [address] Jul, Mild intermittent asthma wit hout complication J45.20 [place] [address] [address] Jul, Major depressive disorder in partial remission F32.4 and FRANCIS (generalized anxiety disorder) F41.1 [place] [address] [address] Jul, [facility] [address] [address] Jun, [place] [address] [address] May, Major depressive disorder in partial remission F32.4 ; FARNCIS (generalized anxiety disorder) F41.1 and Restless leg syndrome G25.81 [place] [address] [address] Apr, [facility] [address] [place] [id number] [place] [address] Mar, [facility] [address] [place] [id number] [address] [place] [address] 21 Sep, 2018 Pain in thoracic spine M54.6 and Other chronic pain G89.29 [facility] [address] [id number] [address] [place] [address] 14 Jan, 2018 [facility] [address] [id number] [address] [place] [address] 11 Jan, 2018 Mild episode of recurrent ma saray depressive disorder F33.0 ; FRANCIS (generalized anxiety disorder) F41.1 and Restless leg syndrome G25.81 [facility] [address] [id number] [address] [place] [address] Dec, [facility] [address] [id number] [address] [place] [address] Dec, Hospital discharge follow-up Z09 [facility] [address] [id number] [address] [place] [address] Nov, [facility] [address] [id number] [address] [place] [address] Nov, [facility] [address] [id number] [address] [place] [address] September, [facility] [address] [id number] [address] [place] [address] September, [facility] [address] [id number] [address] [place] [address] September, Major depressive disorder in partial remission F32.4 ; FRANCIS (generalized anxiety disorder) F41.1 and Restless leg syndrome G25.81 [facility] [address] [id number] [address] [place] [address] September, [facility] [address] [id number] [address] [place] [address] Jul, [facility] [address] [id number] [address] [place] [address] Jul, Dorsalgia, unspecified M54.9 [facility] [address] [id number] [address] [place] [address] Jul, Mild episode of recurrent ma saray depressive disorder F33.0 and FRANCIS (generalized anxiety disorder) F41.1 [facility] [address] [id number] [address] [place] [address] May, [facility] [address] [facility] [id number] [address] [place] [address] May, Dysuria R30.0 and Acute cyst itis with hematuria N30.01 [facility] [address] [id number] [address] [place] [address] Apr, [place] [address] [facility] [id number] [address] [place] [address] Apr, Major depressive disorder in partial remission F32.4 and FRANCIS (generalized anxiety disorder) F41.1 [place] [address] [facility] [id number] [address] [place] [address] Mar, Paroxysmal tachycardia I47.9 [place] [address] [facility] [id number] [address] [place] [address] Mar, Paroxysmal tachycardia I47.9 and Pain of left lower extremity M79.605 [place] [address] [facility] [id number] [address] [place] [address] Mar, FRANCIS (generalized anxiety dis order) F41.1 and Major depressive disorder in partial remission F32.4 [place] [address] [facility] [id number] [address] [place] [address] Jan, [facility] [address] [id number] [address] [place] [address] Jan, [place] [address] [facility] [id number] [address] [place] [address] Jan, [facility] [address] [facility] [id number] [address] [place] [address] Dec, Constipation, unspecified co nstipation type K59.00 [place] [address] [facility] [id number] [address] [place] [address] Dec, [facility] [address] [id number] [address] [place] [address] Nov, [facility] [address] [facility] [id number] [address] [place] [address] Nov, Major depressive disorder in partial remission F32.4 and FRANCIS (generalized anxiety disorder) F41.1 [facility] [address] [facility] [id number] [address] [place] [address] Oct, Abdominal pain R10.9 and Slo w transit constipation K59.01 [place] [address] [facility] [id number] [address] [place] [address] Aug, Major depressive disorder in partial remission F32.4 ; FRANCIS (generalized anxiety disorder) F41.1 ; Conversion disorder (or hysterical neurosis, conversion type) F44.9 ; Dorsalgia, unspecified M54.9 and Long-term use of high-risk medication Z79.899 [place] [address] [facility] [id number] [address] [place] [address] Aug, [place] [address] [facility] [id number] [address] [place] [address] Jul, Paroxysmal tachycardia I47.9 [place] [address] [facility] [id number] [address] [place] [address] Jul, Paroxysmal tachycardia I47.9 [place] [address] [facility] [id number] [address] [place] [address] Jun, [facility] [address] [facility] [id number] [address] [place] [address] Jun, Major depressive disorder in partial remission F32.4 ; FRANCIS (generalized anxiety disorder) F41.1 and Conversion disorder (or hysterical neurosis, conversion type) F44.9 [facility] [address] [facility] [id number] [address] [place] [address] May, Pelvic pain R10.2 [facility] [address] [id number] [address] [place] [address] 30 Apr, 2016 Gastroenteritis K52.9 [facility] [address] [id number] [address] [place] [address] 17 Apr, 2016 Blood in urine R31.9 and Acu te cystitis with hematuria N30.01 [facility] [address] [id number] [address] [place] [address] Apr, Major depressive disorder in partial remission F32.4 ; FRANCIS (generalized anxiety disorder) F41.1 and Conversion disorder (or hysterical neurosis, conversion type) F44.9 [facility] [address] [id number] [address] [place] [address] Apr, [facility] [address] [facility] [id number] [address] [place] [address] Apr, Abnormal mammogram R92.8 [facility] [address] [id number] [address] [place] [address] Mar, [facility] [address] [id number] [address] [place] [address] Mar, Gastroenteritis K52.9 and Se izure disorder G40.909 [facility] [address] [id number] [address] [place] [address] Dec, [facility] [address] [id number] [address] [place] [address] Dec, Other headache syndrome G44. 89 [facility] [address] [id number] [address] [place] [address] Dec, [facility] [address] [facility] [id number] [address] [place] [address] Dec, Thoracic disc herniation M51 .24 [facility] [address] [id number] [address] [place] [address] Dec, [facility] [address] [facility] [id number] [address] [place] [address] Nov, Major depressive disorder in partial remission F32.4 and FRANCIS (generalized anxiety disorder) F41.1 [facility] [address] [id number] [address] [place] [address] Nov, [facility] [address] [id number] [address] [place] [address] Nov, Dorsalgia, unspecified M54.9 [facility] [address] [id number] [address] [place] [address] Oct, [facility] [address] [id number] [address] [place] [address] September, [facility] [address] [id number] [address] [place] [address] Aug, [facility] [address] [id number] [address] [place] [address] Aug, Major depressive disorder in partial remission F32.4 and FRANCIS (generalized anxiety disorder) F41.1 [facility] [address] [id number] [address] [place] [address] Aug, [facility] [address] [id number] [address] [place] [address] Jul, Abnormal mammogram R92.8 [facility] [address] [id number] [address] [place] [address] Jul, [facility] [address] [id number] [address] [place] [address] Jul, [facility] [address] [id number] [address] [place] [address] Jul, [facility] [address] [id number] [address] [place] [address] Jul, [facility] [address] [id number] [address] [place] [address] Jul, [facility] [address] [id number] [address] [place] [address] Jul, [facility] [address] [id number] [address] [place] [address] Jun, Major depressive disorder in partial remission F32.4 and FRANCIS (generalized anxiety disorder) F41.1 [facility] [address] [id number] [address] [place] [address] Jun, [facility] [address] [id number] [address] [place] [address] May, [facility] [address] [id number] [address] [place] [address] Apr, [facility] [address] [id number] [address] [place] [address] Mar, Major depressive disorder, r ecurrent episode, moderate F33.1 ; PTSD (post-traumatic stress disorder) F43.10 and FRANCIS (generalized anxiety disorder) F41.1 [facility] [address] [id number] [address] [place] [address] Mar, [facility] [address] [id number] [address] [place] [address] Mar, [facility] [address] [id number] [address] [place] [address] Mar, [facility] [address] [id number] [address] [place] [address] Mar, [facility] [address] [id number] [address] [place] [address] 23 Jan, 2015 [facility] [address] [id number] [address] [place] [address] 15 Jan, 2015 [facility] [address] [id number] [address] [place] [address] 15 Jan, 2015 [facility] [address] [facility] [id number] [address] [place] [address] 14 Jan, 2015 Thoracic disc herniation 722 .11 [facility] [address] [id number] [address] [place] [address] Dec, [facility] [address] [id number] [address] [place] [address] Dec, [facility] [address] [id number] [address] [place] [address] Dec, [facility] [address] [id number] [address] [place] [address] Nov, [facility] [address] [id number] [address] [place] [address] Nov, Generalized anxiety disorder 300.02 ; Posttraumatic stress disorder 309.81 and Major depressive disorder, recurrent episode, moderate 296.32 [facility] [address] [id number] [address] [place] [address] Nov, [facility] [address] [id number] [address] [place] [address] Nov, [facility] [address] [id number] [address] [place] [address] Oct, [facility] [address] [id number] [address] [place] [address] Oct, [facility] [address] [id number] [address] [place] [address] Oct, [facility] [address] [id number] [address] [place] [address] September, [facility] [address] [id number] [address] [place] [address] September, [facility] [address] [id number] [address] [place] [address] Aug, [facility] [address] [id number] [address] [place] [address] Aug, [facility] [address] [id number] [address] [place] [address] Jul, [facility] [address] [id number] [address] [place] [address], [place] [address] Jul, [facility] [address] [id number] [address] [place] [address], [place] [address] Jul, [facility] [address] [id number] [address] [place] [address], [place] [address] 17 Jul, 2014 [facility] [address] [id number] [address] [place] [address], [place] [address] Jul, [facility] [address] [id number] [address] [place] [address], [place] [address] Jul, [facility] [address] [id number] [address] [place] [address], [place] [address] Jul, [facility] [address] [id number] [address] [place] [address], [place] [address] Jul, [facility] [address] [id number] [address] [place] [address], [place] [address] Jul, [facility] [address] [id number] [address] [place] [address], [place] [address] Jul, [facility] [address] [id number] [address] [place] [address], [place] [address] Jun, [facility] [address] [id number] [address] [place] [address], [place] [address] Jun, [facility] [address] [id number] [address] [place] [address], [place] [address] Jun, [facility] [address] [id number] [address] [place] [address], [place] [address] May, [facility] [address] [id number] [address] [place] [address], [place] [address] Apr, [facility] [address] [id number] [address] [place] [address], [place] [address] Apr, [facility] [address] [id number] [address] [place] [address], [place] [address] Apr, [facility] [address] [id number] [address] [place] [address], [place] [address] Apr, [facility] [address] [id number] [address] [place] [address], [place] [address] Apr, [facility] [address] [id number] [address] [place] [address], [place] [address] Apr, [facility] [address] [id number] [address] [place] [address], [place] [address] Apr, [facility] [address] [id number] [address] [place] [address], [place] [address] Apr, [facility] [address] [id number] [address] [place] [address], [place] [address] Mar, [facility] [address] [id number] [address] [place] [address], [place] [address] Mar, [facility] [address] [id number] [address] [place] [address], [place] [address] Mar, [facility] [address] [id number] [address] [place] [address], [place] [address] Mar, [facility] [address] [id number] [address] [place] [address], [place] [address] Mar, [facility] [address] [id number] [address] [place] [address], [place] [address] Mar, [facility] [address] [id number] [address] [place] [address], [place] [address] Mar, [facility] [address] [id number] [address] [place] [address], [place] [address] Mar, [facility] [address] [id number] [address] [place] [address], [place] [address] Mar, [facility] [address] [id number] [address] [place] [address], [place] [address] Mar, [facility] [address] [id number] [address] [place] [address], [place] [address] Mar, 2013 [facility] [address] [id number] [address] [place] [address], [place] [address] Mar, [facility] [address] [id number] [address] [place] [address], [place] [address] 14 Mar, 2014 [facility] [address] [id number] [address] [place] [address], [place] [address] Mar, 2013 [facility] [address] [id number] [address] [place] [address], [place] [address] Mar, [facility] [address] [id number] [address] [place] [address], [place] [address] Mar, 2013 [facility] [address] [id number] [address] [place] [address], [place] [address] Mar, 2013 [facility] [address] [id number] [address] [place] [address], [place] [address] 19 Sep, 2013 [facility] [address] [id number] [address] [place] [address], [place] [address] 19 Sep, 2013 [facility] [address] [id number] [address] [place] [address], [place] [address] 09 Sep, 2013 [facility] [address] [id number] [address] [place] [address], [place] [address] 09 Sep, 2013 [facility] [address] [id number] [address] [place] [address], [place] [address] 05 Sep, 2013 [facility] [address] [id number] [address] [place] [address], [place] [address] 05 Sep, 2013 [facility] [address] [id number] [address] [place] [address], [place] [address] 05 Sep, 2013 [facility] [address] [id number] [address] [place] [address], [place] [address] 05 Sep, 2013 [facility] [address] [id number] [address] [place] [address], [place] [address] Jan, [facility] [address] [id number] [address] [place] [address], [place] [address] Jan, [facility] [address] [id number] [address] [place] [address], [place] [address] Jan, [facility] [address] [id number] [address] [place] [address], [place] [address] Jan, [facility] [address] [id number] [address] [place] [address], [place] [address] Jan, [facility] [address] [id number] [address] [place] [address], [place] [address] Dec, [facility] [address] [id number] [address] [place] [address], [place] [address] Dec, [facility] [address] [id number] [address] [place] [address], [place] [address] Dec, [facility] [address] [id number] [address] [place] [address], [place] [address] Dec, [facility] [address] [id number] [address] [place] [address], [place] [address] Dec, [facility] [address] [id number] [address] [place] [address], [place] [address] Dec, [facility] [address] [place] [id number] Dec, [facility] [address] [place] [id number] Dec, [facility] [address] [id number] [address] [place] [address], [place] [address] Dec, [facility] [address] [id number] [address] [place] [address], [place] [address] Dec, [facility] [address] [id number] [address] [place] [address], [place] [address] Dec, [facility] [address] [id number] [address] [place] [address], [place] [address] Dec, [facility] [address] [id number] [facility] [place] [address] Nov, [facility] [address] [id number] [facility] [place] [address] Nov, [facility] [address] [id number] [facility] [place] [address] Nov, [facility] [address] [id number] [address] [place] [address], [place] [address] Nov, [facility] [address] [id number] [address] [place] [address], [place] [address] Nov, [facility] [address] [id number] [address] [place] [address], [place] [address] Nov, [facility] [address] [id number] [address] [place] [address], [place] [address] Nov, [facility] [address] [id number] [address] [place] [address], [place] [address] Nov, [facility] [address] [id number] [address] [place] [address], [place] [address] Nov, [facility] [address] [id number] [address] [place] [address], [place] [address] Nov, [facility] [address] [id number] [address] [place] [address], [place] [address] Nov, [facility] [address] [id number] [address] [place] [address], [place] [address] Nov, [facility] [address] [id number] [address] [place] [address], [place] [address] Nov, [facility] [address] [id number] [address] [place] [address], [place] [address] Oct, [facility] [address] [id number] [address] [place] [address], [place] [address] Oct, [facility] [address] [id number] [facility] [place] [address] Oct, [facility] [address] [id number] [address] [place] [address], [place] [address] Oct, [facility] [address] [id number] [address] [place] [address], [place] [address] Oct, [facility] [address] [id number] [address] [place] [address], [place] [address] Oct, [facility] [address] [id number] [address] [place] [address], [place] [address] Oct, [facility] [address] [id number] [address] [place] [address], [place] [address] Oct, [facility] [address] [id number] [address] [place] [address], [place] [address] Oct, [facility] [address] [id number] [address] [place] [address], [place] [address] Oct, [facility] [address] [id number] [address] [place] [address], [place] [address] Oct, [facility] [address] [id number] [address] [place] [address], [place] [address] Oct, [facility] [address] [id number] [address] [place] [address], [place] [address] September, [facility] [address] [id number] [address] [place] [address], [place] [address] September, [facility] [address] [id number] [address] [place] [address], [place] [address] September, [facility] [address] [id number] [address] [place] [address], [place] [address] September, [facility] [address] [id number] [address] [place] [address], [place] [address] Aug, [facility] [address] [id number] [address] [place] [address], [place] [address] Aug, [facility] [address] [id number] [facility] [place] [address] Aug, [facility] [address] [id number] [address] [place] [address], [place] [address] Aug, [facility] [address] [id number] [address] [place] [address], [place] [address] Aug, [facility] [address] [id number] [address] [place] [address], [place] [address] Aug, [facility] [address] [id number] [address] [place] [address], [place] [address] Aug, [facility] [address] [id number] [address] [place] [address], [place] [address] Jul, [facility] [address] [id number] [address] [place] [address], [place] [address] Jul, [facility] [address] [id number] [address] [place] [address], [place] [address] Jul, [facility] [address] [id number] [address] [place] [address], [place] [address] Jul, [facility] [address] [id number] [address] [place] [address], [place] [address] Jul, [facility] [address] [id number] [address] [place] [address], [place] [address] Jul, [facility] [address] [id number] [address] [place] [address], [place] [address] Jul, [facility] [address] [id number] [address] [place] [address], [place] [address] Jul, [facility] [address] [id number] [address] [place] [address], [place] [address] Jul, [facility] [address] [id number] [address] [place] [address], [place] [address] Jul, [facility] [address] [id number] [address] [place] [address], [place] [address] 18 Jul, 2013 [facility] [address] [id number] [address] [place] [address], [place] [address] 18 Jul, 2013 [facility] [address] [id number] [address] [place] [address], [place] [address] 14 Jul, 2013 [facility] [address] [id number] [address] [place] [address], [place] [address] 14 Jul, 2013 [facility] [address] [id number] [address] [place] [address], [place] [address] 11 Jul, 2013 [facility] [address] [id number] [address] [place] [address], [place] [address] Jul, [facility] [address] [id number] [address] [place] [address], [place] [address] Jul, [facility] [address] [id number] [address] [place] [address], [place] [address] Jul, [facility] [address] [id number] [address] [place] [address], [place] [address] Jun, [facility] [address] [id number] [address] [place] [address], [place] [address] 31 Jun, 2013 [facility] [address] [id number] [address] [place] [address], [place] [address] 15 Jun, 2013 [facility] [address] [id number] [address] [place] [address], [place] [address] 15 Jun, 2013 [facility] [address] [id number] [address] [place] [address], [place] [address] 14 Jun, 2013 [facility] [address] [id number] [address] [place] [address], [place] [address] 14 Jun, 2013 [facility] [address] [id number] [address] [place] [address], [place] [address] 14 Jun, 2013 [facility] [address] [id number] [address] [place] [address], [place] [address] 14 Jun, 2013 [facility] [address] [id number] [address] [place] [address], [place] [address] 14 Jun, 2013 [facility] [address] [id number] [address] [place] [address], [place] [address] 14 Jun, 2013 [facility] [address] [id number] [address] [place] [address], [place] [address] 27 May, 2013 [facility] [address] [id number] [address] [place] [address], [place] [address] 27 May, 2013 [facility] [address] [id number] [address] [place] [address], [place] [address] 26 May, 2013 [facility] [address] [id number] [address] [place] [address], [place] [address] 19 May, 2013 [facility] [address] [id number] [address] [place] [address], [place] [address] 19 May, 2013 [facility] [address] [id number] [address] [place] [address], [place] [address] 16 May, 2013 [facility] [address] [id number] [address] [place] [address], [place] [address] 16 May, 2013 [facility] [address] [id number] [address] [place] [address], [place] [address] 16 May, 2013 [facility] [address] [id number] [address] [place] [address], [place] [address] 16 May, 2013 [facility] [address] [id number] [address] [place] [address], [place] [address] 13 May, 2013 [facility] [address] [id number] [address] [place] [address], [place] [address] 13 May, 2013 [facility] [address] [id number] [address] [place] [address], [place] [address] 11 May, 2013 [facility] [address] [id number] [address] [place] [address], [place] [address] 20 Apr, 2013 [facility] [address] [id number] [address] [place] [address] Apr, [facility] [address] [id number] [address] [place] [address], [place] [address] 18 Apr, 2013 [facility] [address] [id number] [address] [place] [address] Apr, [facility] [address] [id number] [address] [place] [address] Apr, [facility] [address] [id number] [address] [place] [address] 08 Apr, 2013 [facility] [address] [id number] [address] [place] [address], [place] [address] 08 Apr, 2013 [facility] [address] [id number] [address] [place] [address] Apr, [facility] [address] [id number] [address] [place] [address] Apr, [facility] [address] [id number] [address] [place] [address] Apr, [facility] [address] [id number] [address] [place] [address] Apr, [facility] [address] [id number] [address] [place] [address] Mar, [facility] [address] [id number] [address] [place] [address] Mar, [facility] [address] [id number] [address] [place] [address] Mar, [facility] [address] [id number] [address] [place] [address] Mar, [facility] [address] [id number] [address] [place] [address] Mar, [facility] [address] [id number] [address] [place] [address] Mar, [facility] [address] [id number] [address] [place] [address], [place] [address] Mar, [facility] [address] [id number] [address] [place] [address], [place] [address] Mar, [facility] [address] [id number] [address] [place] [address], [place] [address] Mar, [facility] [address] [id number] [address] [place] [address], [place] [address] Mar, [facility] [address] [id number] [address] [place] [address], [place] [address] 15 Mar, 2013 [facility] [address] [id number] [address] [place] [address], [place] [address] Mar, [facility] [address] [id number] [address] [place] [address], [place] [address] 30 Jan, 2013 [facility] [address] [id number] [address] [place] [address], [place] [address] Jan, [facility] [address] [id number] [address] [place] [address], [place] [address] 20 Jan, 2013 [facility] [address] [id number] [address] [place] [address], [place] [address] Jan, [facility] [address] [id number] [address] [place] [address], [place] [address] Dec, [facility] [address] [id number] [address] [place] [address], [place] [address] Dec, [facility] [address] [id number] [address] [place] [address], [place] [address] Dec, [facility] [address] [id number] [address] [place] [address], [place] [address] Dec, [facility] [address] [id number] [address] [place] [address], [place] [address] Dec, [facility] [address] [id number] [address] [place] [address], [place] [address] Dec, [facility] [address] [id number] [address] [place] [address], [place] [address] Dec, [facility] [address] [id number] [address] [place] [address], [place] [address] Dec, [facility] [address] [id number] [address] [place] [address], [place] [address] Dec, [facility] [address] [id number] [address] [place] [address], [place] [address] Nov, [facility] [address] [id number] [address] [place] [address], [place] [address] Nov, [facility] [address] [id number] [address] [place] [address], [place] [address] Nov, [facility] [address] [id number] [address] [place] [address], [place] [address] Nov, [facility] [address] [id number] [address] [place] [address], [place] [address] Nov, [facility] [address] [id number] [address] [place] [address], [place] [address] Nov, [facility] [address] [id number] [address] [place] [address], [place] [address] Nov, [facility] [address] [id number] [address] [place] [address], [place] [address] Nov, [facility] [address] [id number] [address] [place] [address], [place] [address] Oct, [facility] [address] [id number] [address] [place] [address], [place] [address] Oct, [facility] [address] [id number] [address] [place] [address], [place] [address] Oct, [facility] [address] [id number] [address] [place] [address], [place] [address] Oct, [facility] [address] [id number] [address] [place] [address], [place] [address] Oct, [facility] [address] [id number] [address] [place] [address], [place] [address] 21 Oct, 2012 [facility] [address] [id number] [address] [place] [address], [place] [address] 20 Oct, 2012 [facility] [address] [id number] [address] [place] [address], [place] [address] 20 Oct, 2012 [facility] [address] [id number] [address] [place] [address], [place] [address] 19 Oct, 2012 [facility] [address] [id number] [address] [place] [address], [place] [address] 18 Oct, 2012 [facility] [address] [id number] [address] [place] [address], [place] [address] 17 Oct, 2012 [facility] [address] [id number] [address] [place] [address], [place] [address] 14 Oct, 2012 [facility] [address] [id number] [address] [place] [address], [place] [address] 07 Oct, 2012 [facility] [address] [id number] [address] [place] [address], [place] [address] 30 Sep, 2012 [facility] [address] [id number] [address] [place] [address], [place] [address] September, [facility] [address] [id number] [address] [place] [address], [place] [address] 15 Sep, 2012 [facility] [address] [id number] [address] [place] [address], [place] [address] 25 Aug, 2012 [facility] [address] [id number] [address] [place] [address], [place] [address] 24 Aug, 2012 [facility] [address] [id number] [address] [place] [address], [place] [address] 18 Aug, 2012 [facility] [address] [id number] [address] [place] [address], [place] [address] 18 Aug, 2012 [facility] [address] [id number] [address] [place] [address], [place] [address] 18 Aug, 2012 [facility] [address] [id number] [address] [place] [address], [place] [address] Aug, [facility] [address] [id number] [address] [place] [address], [place] [address] Aug, [facility] [address] [id number] [address] [place] [address], [place] [address] Jul, [facility] [address] [id number] [address] [place] [address], [place] [address] Jul, [facility] [address] [id number] [address] [place] [address], [place] [address] Jul, [facility] [address] [id number] [address] [place] [address], [place] [address] Jul, [facility] [address] [id number] [address] [place] [address], [place] [address] Jul, [facility] [address] [id number] [address] [place] [address], [place] [address] Jul, [facility] [address] [id number] [address] [place] [address], [place] [address] Jul, [facility] [address] [id number] [address] [place] [address], [place] [address] Jul, [facility] [address] [id number] [address] [place] [address], [place] [address] Jul, [facility] [address] [id number] [address] [place] [address], [place] [address] Jul, [facility] [address] [id number] [address] [place] [address], [place] [address] 11 Jul, 2012 [facility] [address] [id number] [address] [place] [address], [place] [address] 06 Jul, 2012 [facility] [address] [id number] [address] [place] [address] [place] [address] Jul, [facility] [address] [id number] [address] [place] [address], [place] [address] Jun, [facility] [address] [id number] [address] [place] [address], [place] [address] Jun, [facility] [address] [id number] [address] [place] [address], [place] [address] Jun, [facility] [address] [id number] [address] [place] [address], [place] [address] 17 Jun, 2012 [facility] [address] [id number] [address] [place] [address], [place] [address] 15 Jun, 2012 [facility] [address] [id number] [address] [place] [address], [place] [address] Jun, [facility] [address] [id number] [address] [place] [address], [place] [address] Jun, [facility] [address] [id number] [address] [place] [address], [place] [address] May, [facility] [address] [id number] [address] [place] [address], [place] [address] May, [facility] [address] [id number] [address] [place] [address], [place] [address] May, [facility] [address] [id number] [address] [place] [address], [place] [address] May, [facility] [address] [id number] [address] [place] [address], [place] [address] May, [facility] [address] [id number] [address] [place] [address], [place] [address] May, [facility] [address] [id number] [address] [place] [address], [place] [address] May, [facility] [address] [id number] [address] [place] [address], [place] [address] May, [facility] [address] [id number] [address] [place] [address], [place] [address] May, [facility] [address] [id number] [address] [place] [address], [place] [address] May, [facility] [address] [id number] [address] [place] [address], [place] [address] Apr, [facility] [address] [id number] [address] [place] [address], [place] [address] Apr, [facility] [address] [id number] [address] [place] [address], [place] [address] Apr, [facility] [address] [id number] [address] [place] [address], [place] [address] Apr, [facility] [address] [id number] [place] [address], [place] [address] Apr, [facility] [address] [id number] [address] [place] [address], [place] [address] Apr, [facility] [address] [id number] [address] [place] [address], [place] [address] Apr, [facility] [address] [id number] [address] [place] [address], [place] [address] Apr, [facility] [address] [id number] [address] [place] [address], [place] [address] Apr, [facility] [address] [id number] [address] [place] [address], [place] [address] Apr, [facility] [address] [id number] [address] [place] [address], [place] [address] Apr, [facility] [address] [id number] [address] [place] [address], [place] [address] Apr, [facility] [address] [id number] [address] [place] [address], [place] [address] Mar, [facility] [address] [id number] [address] [place] [address], [place] [address] Mar, 2011 [facility] [address] [id number] [address] [place] [address], [place] [address] 30 Mar, 2011 [facility] [address] [id number] [address] [place] [address] Mar, 2011 [facility] [address] [id number] [address] [place] [address] Mar, 2011 [facility] [address] [id number] [address] [place] [address] Mar, 2011 [facility] [address] [id number] [address] [place] [address], [place] [address] Mar, 2011 [facility] [address] [id number] [address] [place] [address] Mar, 2011 [facility] [address] [id number] [address] [place] [address] Mar, 2011 [facility] [address] [id number] [address] [place] [address] Mar, [facility] [address] [id number] [address] [place] [address] Mar, [facility] [address] [id number] [address] [place] [address] Mar, [facility] [address] [id number] [address] [place] [address] Mar, [facility] [address] [id number] [address] [place] [address] Mar, [facility] [address] [id number] [address] [place] [address], [place] [address] Mar, [facility] [address] [id number] [address] [place] [address] Mar, [facility] [address] [id number] [address] [place] [address] Jan, [facility] [address] [id number] [address] [place] [address], [place] [address] 24 Sep, 2011 [facility] [address] [id number] [address] [place] [address], [place] [address] 22 Sep, 2011 [facility] [address] [id number] [address] [place] [address], [place] [address] 22 Jan, 2011 [facility] [address] [id number] [address] [place] [address], [place] [address] 21 Jan, 2011 [facility] [address] [id number] [address] [place] [address], [place] [address] 18 Sep, 2011 [facility] [address] [id number] [address] [place] [address], [place] [address] 14 Jan, 2011 [facility] [address] [id number] [address] [place] [address], [place] [address] 07 Jan, 2012 [facility] [address] [id number] [address] [place] [address], [place] [address] 15 Dec, 2011 [facility] [address] [id number] [address] [place] [address], [place] [address] 10 Dec, 2011 [facility] [address] [id number] [address] [place] [address], [place] [address] 09 Dec, 2011 [facility] [address] [id number] [address] [place] [address], [place] [address] 08 Dec, 2011 [facility] [address] [id number] [address] [place] [address], [place] [address] Dec, [facility] [address] [id number] [address] [place] [address], [place] [address] Dec, [facility] [address] [id number] [address] [place] [address], [place] [address] Dec, [facility] [address] [id number] [address] [place] [address], [place] [address] Nov, [facility] [address] [id number] [address] [place] [address], [place] [address] Oct, [facility] [address] [id number] [address] [place] [address], [place] [address] 05 Aug, 2011 [facility] [address] [id number] [address] [place] [address], [place] [address] 22 Jul, 2011 [facility] [address] [id number] [address] [place] [address], [place] [address] 19 Jul, 2011 [facility] [address] [id number] [address] [place] [address], [place] [address] 16 Jul, 2011 [facility] [address] [id number] [address] [place] [address], [place] [address] 14 Jul, 2011 [facility] [address] [id number] [address] [place] [address], [place] [address] 07 Jul, 2011 [facility] [address] [id number] [address] [place] [address], [place] [address] 02 Jul, 2011 [facility] [address] [id number] [address] [place] [address], [place] [address] 21 Jul, 2011 [facility] [address] [id number] [address] [place] [address], [place] [address] 15 Jul, 2011 [facility] [address] [id number] [address] [place] [address], [place] [address] 13 Jul, 2011 [facility] [address] [id number] [address] [place] [address], [place] [address] 03 Jul, 2011 [facility] [address] [id number] [address] [place] [address], [place] [address] 02 Jul, 2011 [facility] [address] [id number] [address] [place] [address], [place] [address] 24 Jun, 2011 [facility] [address] [id number] [address] [place] [address], [place] [address] 24 Jun, 2011 [facility] [address] [id number] [address] [place] [address], [place] [address] 13 Jun, 2011 [facility] [address] [id number] [address] [place] [address], [place] [address] 11 Jun, 2011 [facility] [address] [id number] [address] [place] [address], [place] [address] Jun, [facility] [address] [id number] [address] [place] [address], [place] [address] Jun, [facility] [address] [id number] [address] [place] [address], [place] [address] Jun, [facility] [address] [id number] [address] [place] [address], [place] [address] May, [facility] [address] [id number] [address] [place] [address], [place] [address] May, [facility] [address] [id number] [address] [place] [address], [place] [address] May, [facility] [address] [id number] [address] [place] [address], [place] [address] May, [facility] [address] [id number] [address] [place] [address], [place] [address] 14 May, 2011 [facility] [address] [id number] [address] [place] [address], [place] [address] May, [facility] [address] [id number] [address] [place] [address], [place] [address] May, [facility] [address] [id number] [address] [place] [address], [place] [address] May, [facility] [address] [id number] [address] [place] [address], [place] [address] May, [facility] [address] [id number] [address] [place] [address], [place] [address] May, [facility] [address] [id number] [address] [place] [address], [place] [address] 15 Apr, 2011 [facility] [address] [id number] [address] [place] [address], [place] [address] 15 Apr, 2011 [facility] [address] [facility] [id number] [address] [place] [address] Apr, [facility] [address] [facility] [id number] [address] [place] [address] Apr, [facility] [address] [facility] [id number] [address] [place] [address] Mar, [facility] [address] [facility] [id number] [address] [place] [address] Mar, [facility] [address] [facility] [id number] [address] [place] [address] Mar, [facility] [address] [facility] [id number] [address] [place] [address] Mar, IMMUNIZATIONS No Known Immunizations SOCIAL HISTORY [...]
--- OUTSIDE RECORDS SUMMARY | 2020-01-03 17:53 | XMS REPORT ---
Author Author Pattie Moffett Doctor Organization [facility] Address Unknown Phone Unavailable Care Team Providers Care Laborer Vineyard Name Role Phone Migration, Doctor Unavailable Unavailable PROBLEMS Type Condition ICD9-CM Code CCX86-XL Code Onset Dates Condition S tatus SNOMED Code Problem FRANCIS (generalized anxiety disorder) F41.1 Active 70754009 Problem Thoracic disc herniation M51.24 Activ e 259001105 Problem Major depressive disorder in partial remission F32 .4 Active 14046404 Problem Seizure disorder G40.909 Active 128 658200 Problem Conversion disorder (or hysterical neurosis, conversion ty pe) F44.9 Active 42593565 Problem Constipation, unspecified constipation type K59.00 Active 92386166 Problem Mild episode of recurrent major depressive disorder F33.0 Active 034186869 Problem Restless leg syndrome G25.81 Active 55985841 Problem Nonadherence to medication Z91.14 Act vivian 739234777 Problem Slow transit constipation K59.01 Acti ve 09886437 Problem Atrophic vaginitis N95.2 Active 5 1397595 Problem Paroxysmal tachycardia I47.9 Active 63423962 Problem Other chronic pain G89.29 Active 8 4302155 Problem Mild intermittent asthma without complication J45. 20 Active 330595309 Problem Obesity (BMI 30.0-34.9) E66.9 Active [id number] Problem High blood pressure I10 Active 64310365 ALLERGIES No Information ENCOUNTERS Encounter Location Date Diagnosis [facility] [address] [facility] [id number] [address] [place] [id number] 08 Nov, 2019 [facility] [address] [facility] [id number] [address] [place] [phone] Nov, [address] [id number] [id number] 26 Oct, 2019 Breast cancer screening Z12.[address] [id number] [address] 08 Oct, 2019 Breast cancer screening Z12. 39 [facility] [address] [id number] [address] [place] [phone] Oct, [facility] [address] [id number] [address] [place] [phone] Oct, [facility] [address] [id number] [address] [place] [phone] September, [facility] [address] [id number] [address] [place] [phone] September, [facility] [address] [id number] [address] [place] [phone] September, Well woman exam with routine gynecological exam Z01.419 and Atrophic vaginitis N95.2 [facility] [address] [id number] [address] [place] [phone] September, Major depressive disorder in partial remission F32.4 ; FRANCIS (generalized anxiety disorder) F41.1 ; Restless leg syndrome G25.81 and Nonadherence to medication Z91.14 [facility] [address] [id number] [address] [place] [phone] September, [facility] [address] [id number] [address] [place] [phone] Aug, [facility] [address] [facility] [id number] [address] [place] [id number] Aug, Dental examination Z01.20 [facility] [address] [id number] [address] [place] [id number] Aug, Dental examination Z01.20 an d Caries K02.9 [facility] [address] [id number] [address] [place] [phone] Aug, [facility] [address] [id number] [address] [place] [id number] Aug, [facility] [address] [id number] [address] [place] [id number] Aug, Other chronic pain G89.29 an d Back muscle spasm M62.830 [facility] [address] [id number] [address] [place] [id number] 07 Aug, 2019 [facility] [address] [id number] [address] [place] [phone] Aug, Major depressive disorder in partial remission F32.4 ; FRANCIS (generalized anxiety disorder) F41.1 ; Restless leg syndrome G25.81 and Nonadherence to medication Z91.14 [facility] [address] [id number] [address] [place] [phone] Aug, [facility] [address] [id number] [address] [place] [phone] Jul, [facility] [address] [id number] [address] [place] [id number] Jul, [facility] [address] [id number] [address] [place] [id number] Jul, Major depressive disorder in partial remission F32.4 ; FRANCIS (generalized anxiety disorder) F41.1 ; Restless leg syndrome G25.81 and High blood pressure I10 [facility] [address] [id number] [address] [place] [phone] 17 Jul, 2019 [facility] [address] [id number] [address] [place] [phone] Jul, [facility] [address] [id number] [address] [place] [phone] Jun, [facility] [address] [id number] [address] [place] [phone] May, [facility] [address] [id number] [address] [place] [phone] Apr, [facility] [address] [id number] [address] [place] [phone] Apr, [facility] [address] [id number] [address] [place] [phone] Mar, [facility] [address] [id number] [address] [place] [phone] Mar, Major depressive disorder in partial remission F32.4 ; FRANCIS (generalized anxiety disorder) F41.1 and Restless leg syndrome G25.81 [facility] [address] [id number] [address] [place] [phone] Mar, Obesity (BMI 30.0-34.9) E66. 9 [facility] [address] [id number] [address] [place] [phone] Jan, [facility] [address] [id number] [address] [place] [phone] Jan, Burn T30.0 [facility] [address] [id number] [address] [place] [phone] Dec, [facility] [address] [id number] [address] [place] [phone] Nov, [facility] [address] [id number] [address] [place] [phone] Nov, [facility] [address] [id number] [address] [place] [address] [id number] Nov, Dental examination Z01.20 [facility] [address] [id number] [address] [place] [phone] September, [facility] [address] [id number] [address] [place] [address] [id number] September, Decay, teeth K02.9 and Denta l examination Z01.20 [facility] [address] [id number] [address] [place] [id number] September, Dental examination Z01.20 [facility] [address] [id number] [address] [place] [phone] September, FRANCIS (generalized anxiety dis order) F41.1 ; Major depressive disorder in partial remission F32.4 and Restless leg syndrome G25.81 [facility] [address] [address] Aug, [facility] [address] [id number] Jul, [facility] [address] [place] [id number] [place] [phone] Jul, Encounter to discuss test re sults Z71.2 [facility] [address] [phone] Jul, Pelvic pain R10.2 ; Screenin g for breast cancer Z12.31 and Obesity (BMI 30.0-34.9) E66.9 [place] [address] [address] Jul, Mild intermittent asthma wit hout complication J45.20 [place] [address] [phone] Jul, Major depressive disorder in partial remission F32.4 and FRANCIS (generalized anxiety disorder) F41.1 [place] [address] [address] Jul, [facility] [address] [phone] Jun, [place] [address] [phone] May, Major depressive disorder in partial remission F32.4 ; FRANCIS (generalized anxiety disorder) F41.1 and Restless leg syndrome G25.81 [place] [address] [phone] Apr, [facility] [address] [place] [id number] [place] [address] Mar, [facility] [address] [place] [id number] [address] [place] [phone] 21 Sep, 2018 Pain in thoracic spine M54.6 and Other chronic pain G89.29 [facility] [address] [id number] [address] [place] [id number] 14 Jan, 2018 [facility] [address] [id number] [address] [place] [phone] 11 Jan, 2018 Mild episode of recurrent ma saray depressive disorder F33.0 ; FRANCIS (generalized anxiety disorder) F41.1 and Restless leg syndrome G25.81 [facility] [address] [id number] [address] [place] [phone] Dec, [facility] [address] [id number] [address] [place] [id number] Dec, Hospital discharge follow-up Z09 [facility] [address] [id number] [address] [place] [id number] Nov, [facility] [address] [id number] [address] [place] [phone] Nov, [facility] [address] [id number] [address] [place] [phone] September, [facility] [address] [id number] [address] [place] [phone] September, [facility] [address] [id number] [address] [place] [phone] September, Major depressive disorder in partial remission F32.4 ; FRANCIS (generalized anxiety disorder) F41.1 and Restless leg syndrome G25.81 [facility] [address] [id number] [address] [place] [phone] September, [facility] [address] [id number] [address] [place] [phone] Jul, [facility] [address] [id number] [address] [place] [phone] Jul, Dorsalgia, unspecified M54.9 [facility] [address] [id number] [address] [place] [id number] Jul, Mild episode of recurrent ma saray depressive disorder F33.0 and FRANCIS (generalized anxiety disorder) F41.1 [facility] [address] [id number] [address] [place] [phone] May, [facility] [address] [facility] [id number] [address] [place] [phone] May, Dysuria R30.0 and Acute cyst itis with hematuria N30.01 [facility] [address] [id number] [address] [place] [id number] Apr, [place] [address] [facility] [id number] [address] [place] [phone] Apr, Major depressive disorder in partial remission F32.4 and FRANCIS (generalized anxiety disorder) F41.1 [place] [address] [facility] [id number] [address] [place] [phone] Mar, Paroxysmal tachycardia I47.9 [place] [address] [facility] [id number] [address] [place] [id number] Mar, Paroxysmal tachycardia I47.9 and Pain of left lower extremity M79.605 [place] [address] [facility] [id number] [address] [place] [id number] Mar, FRANCIS (generalized anxiety dis order) F41.1 and Major depressive disorder in partial remission F32.4 [place] [address] [facility] [id number] [address] [place] [phone] Jan, [facility] [address] [id number] [address] [place] [id number] Jan, [place] [address] [facility] [id number] [address] [place] [id number] Jan, [facility] [address] [facility] [id number] [address] [place] [id number] Dec, Constipation, unspecified co nstipation type K59.00 [place] [address] [facility] [id number] [address] [place] [phone] Dec, [facility] [address] [id number] [address] [place] [id number] Nov, [facility] [address] [facility] [id number] [address] [place] [id number] Nov, Major depressive disorder in partial remission F32.4 and FRANCIS (generalized anxiety disorder) F41.1 [facility] [address] [facility] [id number] [address] [place] [address] Oct, Abdominal pain R10.9 and Slo w transit constipation K59.01 [place] [address] [facility] [id number] [address] [place] [id number] Aug, Major depressive disorder in partial remission F32.4 ; FRANCIS (generalized anxiety disorder) F41.1 ; Conversion disorder (or hysterical neurosis, conversion type) F44.9 ; Dorsalgia, unspecified M54.9 and Long-term use of high-risk medication Z79.899 [place] [address] [facility] [id number] [address] [place] [id number] Aug, [place] [address] [facility] [id number] [address] [place] [phone] Jul, Paroxysmal tachycardia I47.9 [place] [address] [facility] [id number] [address] [place] [id number] Jul, Paroxysmal tachycardia I47.9 [place] [address] [facility] [id number] [address] [place] [phone] Jun, [facility] [address] [facility] [id number] [address] [place] [phone] Jun, Major depressive disorder in partial remission F32.4 ; FRANCIS (generalized anxiety disorder) F41.1 and Conversion disorder (or hysterical neurosis, conversion type) F44.9 [facility] [address] [facility] [id number] [address] [place] [phone] May, Pelvic pain R10.2 [facility] [address] [id number] [address] [place] [id number] 30 Apr, 2016 Gastroenteritis K52.9 [facility] [address] [id number] [address] [place] [phone] 17 Apr, 2016 Blood in urine R31.9 and Acu te cystitis with hematuria N30.01 [facility] [address] [id number] [address] [place] [id number] Apr, Major depressive disorder in partial remission F32.4 ; FRANCIS (generalized anxiety disorder) F41.1 and Conversion disorder (or hysterical neurosis, conversion type) F44.9 [facility] [address] [id number] [address] [place] [phone] Apr, [facility] [address] [facility] [id number] [address] [place] [phone] Apr, Abnormal mammogram R92.8 [facility] [address] [id number] [address] [place] [phone] Mar, [facility] [address] [id number] [address] [place] [address] Mar, Gastroenteritis K52.9 and Se izure disorder G40.909 [facility] [address] [id number] [address] [place] [phone] Dec, [facility] [address] [id number] [address] [place] [phone] Dec, Other headache syndrome G44. 89 [facility] [address] [id number] [address] [place] [phone] Dec, [facility] [address] [facility] [id number] [address] [place] [address] Dec, Thoracic disc herniation M51 .24 [facility] [address] [id number] [address] [place] [id number] Dec, [facility] [address] [facility] [id number] [address] [place] [phone] Nov, Major depressive disorder in partial remission F32.4 and FRANCIS (generalized anxiety disorder) F41.1 [facility] [address] [id number] [address] [place] [address] Nov, [facility] [address] [id number] [address] [place] [phone] Nov, Dorsalgia, unspecified M54.9 [facility] [address] [id number] [address] [place] [phone] Oct, [facility] [address] [id number] [address] [place] [phone] September, [facility] [address] [id number] [address] [place] [phone] Aug, [facility] [address] [id number] [address] [place] [address] Aug, Major depressive disorder in partial remission F32.4 and FRANCIS (generalized anxiety disorder) F41.1 [facility] [address] [id number] [address] [place] [phone] Aug, [facility] [address] [id number] [address] [place] [phone] Jul, Abnormal mammogram R92.8 [facility] [address] [id number] [address] [place] [phone] Jul, [facility] [address] [id number] [address] [place] [phone] Jul, [facility] [address] [id number] [address] [place] [id number] Jul, [facility] [address] [id number] [address] [place] [id number] Jul, [facility] [address] [id number] [address] [place] [phone] Jul, [facility] [address] [id number] [address] [place] [phone] Jul, [facility] [address] [id number] [address] [place] [phone] Jun, Major depressive disorder in partial remission F32.4 and FRANCIS (generalized anxiety disorder) F41.1 [facility] [address] [id number] [address] [place] [phone] Jun, [facility] [address] [id number] [address] [place] [phone] May, [facility] [address] [id number] [address] [place] [phone] Apr, [facility] [address] [id number] [address] [place] [id number] Mar, Major depressive disorder, r ecurrent episode, moderate F33.1 ; PTSD (post-traumatic stress disorder) F43.10 and FRANCIS (generalized anxiety disorder) F41.1 [facility] [address] [id number] [address] [place] [phone] Mar, [facility] [address] [id number] [address] [place] [phone] Mar, [facility] [address] [id number] [address] [place] [id number] Mar, [facility] [address] [id number] [address] [place] [phone] Mar, [facility] [address] [id number] [address] [place] [phone] 23 Jan, 2015 [facility] [address] [id number] [address] [place] [phone] 15 Jan, 2015 [facility] [address] [id number] [address] [place] [id number] 15 Jan, 2015 [facility] [address] [facility] [id number] [address] [place] [id number] 14 Jan, 2015 Thoracic disc herniation 722 .11 [facility] [address] [id number] [address] [place] [phone] Dec, [facility] [address] [id number] [address] [place] [phone] Dec, [facility] [address] [id number] [address] [place] [phone] Dec, [facility] [address] [id number] [address] [place] [id number] Nov, [facility] [address] [id number] [address] [place] [phone] Nov, Generalized anxiety disorder 300.02 ; Posttraumatic stress disorder 309.81 and Major depressive disorder, recurrent episode, moderate 296.32 [facility] [address] [id number] [address] [place] [phone] Nov, [facility] [address] [id number] [address] [place] [phone] Nov, [facility] [address] [id number] [address] [place] [phone] Oct, [facility] [address] [id number] [address] [place] [phone] Oct, [facility] [address] [id number] [address] [place] [phone] Oct, [facility] [address] [id number] [address] [place] [phone] September, [facility] [address] [id number] [address] [place] [phone] September, [facility] [address] [id number] [address] [place] [id number] Aug, [facility] [address] [id number] [address] [place] [id number] Aug, [facility] [address] [id number] [address] [place] [id number] Jul, [facility] [address] [id number] [address] [place] [address], [place] [id number] Jul, [facility] [address] [id number] [address] [place] [address], [place] [id number] Jul, [facility] [address] [id number] [address] [place] [address], [place] [id number] 17 Jul, 2014 [facility] [address] [id number] [address] [place] [address], [place] [address] Jul, [facility] [address] [id number] [address] [place] [address], [place] [address] Jul, [facility] [address] [id number] [address] [place] [address], [place] [id number] Jul, [facility] [address] [id number] [address] [place] [address], [place] [address] Jul, [facility] [address] [id number] [address] [place] [address], [place] [address] Jul, [facility] [address] [id number] [address] [place] [address], [place] [address] Jul, [facility] [address] [id number] [address] [place] [address], [place] [address] Jun, [facility] [address] [id number] [address] [place] [address], [place] [address] Jun, [facility] [address] [id number] [address] [place] [address], [place] [id number] Jun, [facility] [address] [id number] [address] [place] [address], [place] [address] May, [facility] [facility] [address] [id number] [address] [place] [address], [place] [address] Apr, [facility] [address] [id number] [address] [place] [address], [place] [address] Apr, [facility] [address] [id number] [address] [place] [address], [place] [address] Apr, [facility] [address] [id number] [address] [place] [address], [place] [address] Apr, [facility] [address] [id number] [address] [place] [address], [place] [address] Apr, [facility] [address] [id number] [address] [place] [address], [place] [address] Apr, [facility] [address] [id number] [address] [place] [address], [place] [address] Apr, [facility] [address] [id number] [address] [place] [address], [place] [address] Apr, [facility] [address] [id number] [address] [place] [address], [place] [address] Mar, [facility] [address] [id number] [address] [place] [address], [place] [address] Mar, [facility] [address] [id number] [address] [place] [address], [place] [address] Mar, [facility] [address] [id number] [address] [place] [address], [place] [address] Mar, [facility] [address] [id number] [address] [place] [address], [place] [address] Mar, [facility] [address] [id number] [address] [place] [address], [place] [address] Mar, [facility] [address] [id number] [address] [place] [address], [place] [address] Mar, [facility] [address] [id number] [address] [place] [address], [place] [address] Mar, [facility] [address] [id number] [address] [place] [address], [place] [address] Mar, [facility] [address] [id number] [address] [place] [address], [place] [address] Mar, [facility] [address] [id number] [address] [place] [address], [place] [address] Mar, 2013 [facility] [address] [id number] [address] [place] [address], [place] [address] Mar, [facility] [address] [id number] [address] [place] [address], [place] [address] 14 Mar, 2014 [facility] [address] [id number] [address] [place] [address], [place] [address] Mar, 2013 [facility] [address] [id number] [address] [place] [address], [place] [address] Mar, [facility] [address] [id number] [address] [place] [address], [place] [address] Mar, 2013 [facility] [address] [id number] [address] [place] [address], [place] [address] Mar, 2013 [facility] [address] [id number] [address] [place] [address], [place] [address] 19 Sep, 2013 [facility] [address] [id number] [address] [place] [address], [place] [address] 19 Sep, 2013 [facility] [address] [id number] [address] [place] [address], [place] [address] 09 Sep, 2013 [facility] [address] [id number] [address] [place] [address], [place] [address] 09 Sep, 2013 [facility] [address] [id number] [address] [place] [address], [place] [address] 05 Sep, 2013 [facility] [address] [id number] [address] [place] [address], [place] [address] 05 Sep, 2013 [facility] [address] [id number] [address] [place] [address], [place] [address] 05 Sep, 2013 [facility] [address] [id number] [address] [place] [address], [place] [address] 05 Sep, 2013 [facility] [address] [id number] [address] [place] [address], [place] [address] Jan, [facility] [address] [id number] [address] [place] [address], [place] [address] Jan, [facility] [address] [id number] [address] [place] [address], [place] [address] Jan, [facility] [address] [id number] [address] [place] [address], [place] [address] Jan, [facility] [address] [id number] [address] [place] [address], [place] [address] Jan, [facility] [address] [id number] [address] [place] [address], [place] [address] Dec, [facility] [address] [id number] [address] [place] [address], [place] [address] Dec, [facility] [address] [id number] [address] [place] [address], [place] [address] Dec, [facility] [address] [id number] [address] [place] [address], [place] [address] Dec, [facility] [address] [id number] [address] [place] [address], [place] [address] Dec, [facility] [address] [id number] [address] [place] [address], [place] [address] Dec, [facility] [address] [place] [id number] Dec, [facility] [address] [place] [id number] Dec, [facility] [address] [id number] [address] [place] [address], [place] [address] Dec, [facility] [address] [id number] [address] [place] [address], [place] [address] Dec, [facility] [address] [id number] [address] [place] [address], [place] [address] Dec, [facility] [address] [id number] [address] [place] [address], [place] [address] Dec, [facility] [address] [id number] [facility] [place] [address] Nov, [facility] [address] [id number] [facility] [place] [address] Nov, [facility] [address] [id number] [facility] [place] [address] Nov, [facility] [address] [id number] [address] [place] [address], [place] [address] Nov, [facility] [address] [id number] [address] [place] [address], [place] [address] Nov, [facility] [address] [id number] [address] [place] [address], [place] [address] Nov, [facility] [address] [id number] [address] [place] [address], [place] [address] Nov, [facility] [address] [id number] [address] [place] [address], [place] [address] Nov, [facility] [address] [id number] [address] [place] [address], [place] [address] Nov, [facility] [address] [id number] [address] [place] [address], [place] [address] Nov, [facility] [address] [id number] [address] [place] [address], [place] [address] Nov, [facility] [address] [id number] [address] [place] [address], [place] [address] Nov, [facility] [address] [id number] [address] [place] [address], [place] [address] Nov, [facility] [address] [id number] [address] [place] [address], [place] [address] Oct, [facility] [address] [id number] [address] [place] [address], [place] [address] Oct, [facility] [address] [id number] [facility] [place] [address] Oct, [facility] [address] [id number] [address] [place] [address], [place] [address] Oct, [facility] [address] [id number] [address] [place] [address], [place] [address] Oct, [facility] [address] [id number] [address] [place] [address], [place] [address] Oct, [facility] [address] [id number] [address] [place] [address], [place] [address] Oct, [facility] [address] [id number] [address] [place] [address], [place] [address] Oct, [facility] [address] [id number] [address] [place] [address], [place] [address] Oct, [facility] [address] [id number] [address] [place] [address], [place] [address] Oct, [facility] [address] [id number] [address] [place] [address], [place] [address] Oct, [facility] [address] [id number] [address] [place] [address], [place] [address] Oct, [facility] [address] [id number] [address] [place] [address], [place] [address] September, [facility] [address] [id number] [address] [place] [address], [place] [address] September, [facility] [address] [id number] [address] [place] [address], [place] [address] September, [facility] [address] [id number] [address] [place] [address], [place] [address] September, [facility] [address] [id number] [address] [place] [address], [place] [address] Aug, [facility] [address] [id number] [address] [place] [address], [place] [address] Aug, [facility] [address] [id number] [facility] [place] [address] Aug, [facility] [address] [id number] [address] [place] [address], [place] [address] Aug, [facility] [address] [id number] [address] [place] [address], [place] [address] Aug, [facility] [address] [id number] [address] [place] [address], [place] [address] Aug, [facility] [address] [id number] [address] [place] [address], [place] [address] Aug, [facility] [address] [id number] [address] [place] [address], [place] [address] Jul, [facility] [address] [id number] [address] [place] [address], [place] [address] Jul, [facility] [address] [id number] [address] [place] [address], [place] [address] Jul, [facility] [address] [id number] [address] [place] [address], [place] [address] Jul, [facility] [address] [id number] [address] [place] [address], [place] [address] Jul, [facility] [address] [id number] [address] [place] [address], [place] [address] Jul, [facility] [address] [id number] [address] [place] [address], [place] [address] Jul, [facility] [address] [id number] [address] [place] [address], [place] [address] Jul, [facility] [address] [id number] [address] [place] [address], [place] [address] Jul, [facility] [address] [id number] [address] [place] [address], [place] [address] Jul, [facility] [address] [id number] [address] [place] [address], [place] [address] 18 Jul, 2013 [facility] [address] [id number] [address] [place] [address], [place] [address] 18 Jul, 2013 [facility] [address] [id number] [address] [place] [address], [place] [address] 14 Jul, 2013 [facility] [address] [id number] [address] [place] [address], [place] [address] 14 Jul, 2013 [facility] [address] [id number] [address] [place] [address], [place] [address] 11 Jul, 2013 [facility] [address] [id number] [address] [place] [address], [place] [address] Jul, [facility] [address] [id number] [address] [place] [address], [place] [address] Jul, [facility] [address] [id number] [address] [place] [address], [place] [address] Jul, [facility] [address] [id number] [address] [place] [address], [place] [address] Jun, [facility] [address] [id number] [address] [place] [address], [place] [address] 31 Jun, 2013 [facility] [address] [id number] [address] [place] [address], [place] [address] 15 Jun, 2013 [facility] [address] [id number] [address] [place] [address], [place] [address] 15 Jun, 2013 [facility] [address] [id number] [address] [place] [address], [place] [address] 14 Jun, 2013 [facility] [address] [id number] [address] [place] [address], [place] [address] 14 Jun, 2013 [facility] [address] [id number] [address] [place] [address], [place] [address] 14 Jun, 2013 [facility] [address] [id number] [address] [place] [address], [place] [address] 14 Jun, 2013 [facility] [address] [id number] [address] [place] [address], [place] [address] 14 Jun, 2013 [facility] [address] [id number] [address] [place] [address], [place] [address] 14 Jun, 2013 [facility] [address] [id number] [address] [place] [address], [place] [address] 27 May, 2013 [facility] [address] [id number] [address] [place] [address], [place] [address] 27 May, 2013 [facility] [address] [id number] [address] [place] [address], [place] [address] 26 May, 2013 [facility] [address] [id number] [address] [place] [address], [place] [address] 19 May, 2013 [facility] [address] [id number] [address] [place] [address], [place] [address] 19 May, 2013 [facility] [address] [id number] [address] [place] [address], [place] [address] 16 May, 2013 [facility] [address] [id number] [address] [place] [address], [place] [address] 16 May, 2013 [facility] [address] [id number] [address] [place] [address], [place] [address] 16 May, 2013 [facility] [address] [id number] [address] [place] [address], [place] [address] 16 May, 2013 [facility] [address] [id number] [address] [place] [address], [place] [address] 13 May, 2013 [facility] [address] [id number] [address] [place] [address], [place] [address] 13 May, 2013 [facility] [address] [id number] [address] [place] [address], [place] [address] 11 May, 2013 [facility] [address] [id number] [address] [place] [address], [place] [address] 20 Apr, 2013 [facility] [address] [id number] [address] [place] [address] Apr, [facility] [address] [id number] [address] [place] [address], [place] [address] 18 Apr, 2013 [facility] [address] [id number] [address] [place] [address] Apr, [facility] [address] [id number] [address] [place] [address] Apr, [facility] [address] [id number] [address] [place] [address] 08 Apr, 2013 [facility] [address] [id number] [address] [place] [address], [place] [address] 08 Apr, 2013 [facility] [address] [id number] [address] [place] [address] Apr, [facility] [address] [id number] [address] [place] [address] Apr, [facility] [address] [id number] [address] [place] [address] Apr, [facility] [address] [id number] [address] [place] [address] Apr, [facility] [address] [id number] [address] [place] [address] Mar, [facility] [address] [id number] [address] [place] [address] Mar, [facility] [address] [id number] [address] [place] [address] Mar, [facility] [address] [id number] [address] [place] [address] Mar, [facility] [address] [id number] [address] [place] [address] Mar, [facility] [address] [id number] [address] [place] [address] Mar, [facility] [address] [id number] [address] [place] [address], [place] [address] Mar, [facility] [address] [id number] [address] [place] [address], [place] [address] Mar, [facility] [address] [id number] [address] [place] [address], [place] [address] Mar, [facility] [address] [id number] [address] [place] [address], [place] [address] Mar, [facility] [address] [id number] [address] [place] [address], [place] [address] 15 Mar, 2013 [facility] [address] [id number] [address] [place] [address], [place] [address] Mar, [facility] [address] [id number] [address] [place] [address], [place] [address] 30 Jan, 2013 [facility] [address] [id number] [address] [place] [address], [place] [address] Jan, [facility] [address] [id number] [address] [place] [address], [place] [address] 20 Jan, 2013 [facility] [address] [id number] [address] [place] [address], [place] [address] Jan, [facility] [address] [id number] [address] [place] [address], [place] [address] Dec, [facility] [address] [id number] [address] [place] [address], [place] [address] Dec, [facility] [address] [id number] [address] [place] [address], [place] [address] Dec, [facility] [address] [id number] [address] [place] [address], [place] [address] Dec, [facility] [address] [id number] [address] [place] [address], [place] [address] Dec, [facility] [address] [id number] [address] [place] [address], [place] [address] Dec, [facility] [address] [id number] [address] [place] [address], [place] [address] Dec, [facility] [address] [id number] [address] [place] [address], [place] [address] Dec, [facility] [address] [id number] [address] [place] [address], [place] [address] Dec, [facility] [address] [id number] [address] [place] [address], [place] [address] Nov, [facility] [address] [id number] [address] [place] [address], [place] [address] Nov, [facility] [address] [id number] [address] [place] [address], [place] [address] Nov, [facility] [address] [id number] [address] [place] [address], [place] [address] Nov, [facility] [address] [id number] [address] [place] [address], [place] [address] Nov, [facility] [address] [id number] [address] [place] [address], [place] [address] Nov, [facility] [address] [id number] [address] [place] [address], [place] [address] Nov, [facility] [address] [id number] [address] [place] [address], [place] [address] Nov, [facility] [address] [id number] [address] [place] [address], [place] [address] Oct, [facility] [address] [id number] [address] [place] [address], [place] [address] Oct, [facility] [address] [id number] [address] [place] [address], [place] [address] Oct, [facility] [address] [id number] [address] [place] [address], [place] [address] Oct, [facility] [address] [id number] [address] [place] [address], [place] [address] Oct, [facility] [address] [id number] [address] [place] [address], [place] [address] 21 Oct, 2012 [facility] [address] [id number] [address] [place] [address], [place] [address] 20 Oct, 2012 [facility] [address] [id number] [address] [place] [address], [place] [address] 20 Oct, 2012 [facility] [address] [id number] [address] [place] [address], [place] [address] 19 Oct, 2012 [facility] [address] [id number] [address] [place] [address], [place] [address] 18 Oct, 2012 [facility] [address] [id number] [address] [place] [address], [place] [address] 17 Oct, 2012 [facility] [address] [id number] [address] [place] [address], [place] [address] 14 Oct, 2012 [facility] [address] [id number] [address] [place] [address], [place] [address] 07 Oct, 2012 [facility] [address] [id number] [address] [place] [address], [place] [address] 30 Sep, 2012 [facility] [address] [id number] [address] [place] [address], [place] [address] September, [facility] [address] [id number] [address] [place] [address], [place] [address] 15 Sep, 2012 [facility] [address] [id number] [address] [place] [address], [place] [address] 25 Aug, 2012 [facility] [address] [id number] [address] [place] [address], [place] [address] 24 Aug, 2012 [facility] [address] [id number] [address] [place] [address], [place] [address] 18 Aug, 2012 [facility] [address] [id number] [address] [place] [address], [place] [address] 18 Aug, 2012 [facility] [address] [id number] [address] [place] [address], [place] [address] 18 Aug, 2012 [facility] [address] [id number] [address] [place] [address], [place] [address] Aug, [facility] [address] [id number] [address] [place] [address], [place] [address] Aug, [facility] [address] [id number] [address] [place] [address], [place] [address] Jul, [facility] [address] [id number] [address] [place] [address], [place] [address] Jul, [facility] [address] [id number] [address] [place] [address], [place] [address] Jul, [facility] [address] [id number] [address] [place] [address], [place] [address] Jul, [facility] [address] [id number] [address] [place] [address], [place] [address] Jul, [facility] [address] [id number] [address] [place] [address], [place] [address] Jul, [facility] [address] [id number] [address] [place] [address], [place] [address] Jul, [facility] [address] [id number] [address] [place] [address], [place] [address] Jul, [facility] [address] [id number] [address] [place] [address], [place] [address] Jul, [facility] [address] [id number] [address] [place] [address], [place] [address] Jul, [facility] [address] [id number] [address] [place] [address], [place] [address] 11 Jul, 2012 [facility] [address] [id number] [address] [place] [address], [place] [address] 06 Jul, 2012 [facility] [address] [id number] [address] [place] [address] [place] [address] Jul, [facility] [facility] [address] [id number] [address] [place] [address], [place] [address] Jun, [facility] [address] [id number] [address] [place] [address], [place] [address] Jun, [facility] [address] [id number] [address] [place] [address], [place] [address] Jun, [facility] [address] [id number] [address] [place] [address], [place] [address] 17 Jun, 2012 [facility] [address] [id number] [address] [place] [address], [place] [address] 15 Jun, 2012 [facility] [address] [id number] [address] [place] [address], [place] [address] Jun, [facility] [address] [id number] [address] [place] [address], [place] [address] Jun, [facility] [address] [id number] [address] [place] [address], [place] [address] May, [facility] [address] [id number] [address] [place] [address], [place] [address] May, [facility] [address] [id number] [address] [place] [address], [place] [address] May, [facility] [address] [id number] [address] [place] [address], [place] [address] May, [facility] [address] [id number] [address] [place] [address], [place] [address] May, [facility] [address] [id number] [address] [place] [address], [place] [address] May, [facility] [address] [id number] [address] [place] [address], [place] [address] May, [facility] [address] [id number] [address] [place] [address], [place] [address] May, [facility] [address] [id number] [address] [place] [address], [place] [address] May, [facility] [address] [id number] [address] [place] [address], [place] [address] May, [facility] [address] [id number] [address] [place] [address], [place] [address] Apr, [facility] [address] [id number] [address] [place] [address], [place] [address] Apr, [facility] [address] [id number] [address] [place] [address], [place] [address] Apr, [facility] [address] [id number] [address] [place] [address], [place] [address] Apr, [facility] [address] [id number] [address] [place] [address], [place] [address] Apr, [facility] [address] [id number] [address] [place] [address], [place] [address] Apr, [facility] [address] [id number] [address] [place] [address], [place] [address] Apr, [facility] [address] [id number] [address] [place] [address], [place] [address] Apr, [facility] [address] [id number] [address] [place] [address], [place] [address] Apr, [facility] [address] [id number] [address] [place] [address], [place] [address] Apr, [facility] [address] [id number] [address] [place] [address], [place] [address] Apr, [facility] [address] [id number] [address] [place] [address], [place] [address] Apr, [facility] [address] [id number] [address] [place] [address], [place] [address] Mar, [facility] [address] [id number] [address] [place] [address], [place] [address] Mar, 2011 [facility] [address] [id number] [address] [place] [address], [place] [address] 30 Mar, 2011 [facility] [address] [id number] [address] [place] [id number] Mar, 2011 [facility] [address] [id number] [address] [place] [id number] Mar, 2011 [facility] [address] [id number] [address] [place] [id number] Mar, 2011 [facility] [address] [id number] [address] [place] [address], [place] [address] Mar, 2011 [facility] [address] [id number] [address] [place] [id number] Mar, 2011 [facility] [address] [id number] [address] [place] [phone] Mar, 2011 [facility] [address] [id number] [address] [place] [id number] Mar, [facility] [address] [id number] [address] [place] [phone] Mar, [facility] [address] [id number] [address] [place] [phone] Mar, [facility] [address] [id number] [address] [place] [address] Mar, [facility] [address] [id number] [address] [place] [phone] Mar, [facility] [address] [id number] [address] [place] [address], [place] [address] Mar, [facility] [address] [id number] [address] [place] [phone] Mar, [facility] [address] [id number] [address] [place] [phone] Jan, [facility] [address] [id number] [address] [place] [address], [place] [address] 24 Sep, 2011 [facility] [address] [id number] [address] [place] [address], [place] [address] 22 Sep, 2011 [facility] [address] [id number] [address] [place] [address], [place] [address] 22 Jan, 2011 [facility] [address] [id number] [address] [place] [address], [place] [address] 21 Jan, 2011 [facility] [address] [id number] [address] [place] [address], [place] [address] 18 Sep, 2011 [facility] [address] [id number] [address] [place] [address], [place] [address] 14 Jan, 2011 [facility] [address] [id number] [address] [place] [address], [place] [address] 07 Jan, 2012 [facility] [address] [id number] [address] [place] [address], [place] [address] 15 Dec, 2011 [facility] [address] [id number] [address] [place] [address], [place] [address] 10 Dec, 2011 [facility] [address] [id number] [address] [place] [address], [place] [address] 09 Dec, 2011 [facility] [address] [id number] [address] [place] [address], [place] [address] 08 Dec, 2011 [facility] [address] [id number] [address] [place] [address], [place] [address] Dec, [facility] [address] [id number] [address] [place] [address], [place] [address] Dec, [facility] [address] [id number] [address] [place] [address], [place] [address] Dec, [facility] [address] [id number] [address] [place] [address], [place] [address] Nov, [facility] [address] [id number] [address] [place] [address], [place] [address] Oct, [facility] [address] [id number] [address] [place] [address], [place] [address] 05 Aug, 2011 [facility] [address] [id number] [address] [place] [address], [place] [address] 22 Jul, 2011 [facility] [address] [id number] [address] [place] [address], [place] [address] 19 Jul, 2011 [facility] [address] [id number] [address] [place] [address], [place] [address] 16 Jul, 2011 [facility] [address] [id number] [address] [place] [address], [place] [address] 14 Jul, 2011 [facility] [address] [id number] [address] [place] [address], [place] [address] 07 Jul, 2011 [facility] [address] [id number] [address] [place] [address], [place] [address] 02 Jul, 2011 [facility] [address] [id number] [address] [place] [address], [place] [address] 21 Jul, 2011 [facility] [address] [id number] [address] [place] [address], [place] [address] 15 Jul, 2011 [facility] [address] [id number] [address] [place] [address], [place] [address] 13 Jul, 2011 [facility] [address] [id number] [address] [place] [address], [place] [address] 03 Jul, 2011 [facility] [address] [id number] [address] [place] [address], [place] [address] 02 Jul, 2011 [facility] [address] [id number] [address] [place] [address], [place] [address] 24 Jun, 2011 [facility] [address] [id number] [address] [place] [address], [place] [address] 24 Jun, 2011 [facility] [address] [id number] [address] [place] [address], [place] [address] 13 Jun, 2011 [facility] [address] [id number] [address] [place] [address], [place] [address] 11 Jun, 2011 [facility] [address] [id number] [address] [place] [address], [place] [address] Jun, [facility] [address] [id number] [address] [place] [address], [place] [address] Jun, [facility] [address] [id number] [address] [place] [address], [place] [address] Jun, [facility] [address] [id number] [address] [place] [address], [place] [address] May, [facility] [address] [id number] [address] [place] [address], [place] [address] May, [facility] [address] [id number] [address] [place] [address], [place] [address] May, [facility] [address] [id number] [address] [place] [address], [place] [address] May, [facility] [address] [id number] [address] [place] [address], [place] [address] 14 May, 2011 [facility] [address] [id number] [address] [place] [address], [place] [address] May, [facility] [address] [id number] [address] [place] [address], [place] [address] May, [facility] [address] [id number] [address] [place] [address], [place] [address] May, [facility] [address] [id number] [address] [place] [address], [place] [address] May, [facility] [address] [id number] [address] [place] [address], [place] [address] May, [facility] [address] [id number] [address] [place] [address], [place] [address] 15 Apr, 2011 [facility] [address] [id number] [address] [place] [address], [place] [address] 15 Apr, 2011 [facility] [address] [facility] [id number] [address] [place] [phone] Apr, [facility] [address] [facility] [id number] [address] [place] [address] Apr, [facility] [address] [facility] [id number] [address] [place] [id number] Mar, [facility] [address] [facility] [id number] [address] [place] [id number] Mar, [facility] [address] [facility] [id number] [address] [place] [id number] Mar, [facility] [address] [facility] [id number] [address] [place] [address] Mar, IMMUNIZATIONS No Known Immunizations SOCIAL HISTORY [...]
--- OUTSIDE RECORDS SUMMARY | 2020-01-03 17:53 | XMS REPORT ---
Author Author Pattie VIEIRA Organization [facility] Address [address] [place] [address] Care Team Providers Care Pest Technician Name Role Phone REYNALDO VIEIRA Unavailable PROBLEMS Type Condition ICD9-CM Code OWW32-CF Code Onset Dates Condition S tatus SNOMED Code Problem FRANCIS (generalized anxiety disorder) F41.1 Active 74618837 Problem Thoracic disc herniation M51.24 Activ e 248610026 Problem Major depressive disorder in partial remission F32 .4 Active 25691879 Problem Seizure disorder G40.909 Active 128 029200 Problem Conversion disorder (or hysterical neurosis, conversion ty pe) F44.9 Active 71401756 Problem Constipation, unspecified constipation type K59.00 Active 28499982 Problem Mild episode of recurrent major depressive disorder F33.0 Active 117889029 Problem Restless leg syndrome G25.81 Active 40681523 Problem Nonadherence to medication Z91.14 Act vivian 657492548 Problem Slow transit constipation K59.01 Acti ve 19485891 Problem Atrophic vaginitis N95.2 Active 5 4191762 Problem Paroxysmal tachycardia I47.9 Active 65005509 Problem Other chronic pain G89.29 Active 8 0491456 Problem Mild intermittent asthma without complication J45. 20 Active 362730992 Problem Obesity (BMI 30.0-34.9) E66.9 Active [id number] Problem High blood pressure I10 Active 18405008 ALLERGIES No Information ENCOUNTERS Encounter Location Date Diagnosis [facility] [address] [facility] [id number] [address] [place] [phone] Nov, [facility] [address] [facility] [id number] [address] [place] [address] Nov, [address] [id number] [id number] Oct, Breast cancer screening Z12.[address] 340B [id number] [place] [phone] 08 Oct, 2019 Breast cancer screening Z12. 39 [facility] [address] [id number] [address] [place] [phone] Oct, [facility] [address] [id number] [address] [place] [address] Oct, [facility] [address] [facility] [id number] [address] [place] [phone] September, [facility] [address] [id number] [address] [place] [address] September, [facility] [address] [facility] [id number] [address] [place] [phone] September, Well woman exam with routine gynecological exam Z01.419 and Atrophic vaginitis N95.2 [facility] [address] [facility] [id number] [address] [place] [phone] September, Major depressive disorder in partial remission F32.4 ; FRANCIS (generalized anxiety disorder) F41.1 ; Restless leg syndrome G25.81 and Nonadherence to medication Z91.14 [facility] [address] [facility] [id number] [address] [place] [phone] September, [facility] [address] [facility] [id number] [address] [place] [phone] Aug, [facility] [address] [id number] [address] [place] [id number] Aug, Dental examination Z01.20 [facility] [address] [id number] [address] [place] [id number] Aug, Dental examination Z01.20 an d Caries K02.9 [facility] [address] [id number] [address] [place] [phone] Aug, [facility] [address] [facility] [id number] [address] [place] [address] Aug, [facility] [address] [id number] [address] [place] [phone] 11 Aug, 2019 Other chronic pain G89.29 an d Back muscle spasm M62.830 [facility] [address] [id number] [address] [place] [phone] 07 Aug, 2019 [facility] [address] [facility] [id number] [address] [place] [address] Aug, Major depressive disorder in partial remission F32.4 ; FRANCIS (generalized anxiety disorder) F41.1 ; Restless leg syndrome G25.81 and Nonadherence to medication Z91.14 [facility] [address] [id number] [address] [place] [phone] Aug, [facility] [address] [id number] [address] [place] [phone] Jul, [facility] [address] [facility] [id number] [address] [place] [phone] Jul, [facility] [address] [id number] [address] [place] [phone] Jul, Major depressive disorder in partial remission F32.4 ; FRANCIS (generalized anxiety disorder) F41.1 ; Restless leg syndrome G25.81 and High blood pressure I10 [facility] [address] [id number] [address] [place] [id number] 17 Jul, 2019 [facility] [address] [facility] [id number] [address] [place] [address] Jul, [facility] [address] [id number] [address] [place] [phone] Jun, [facility] [address] [facility] [id number] [address] [place] [phone] May, [facility] [address] [id number] [address] [place] [phone] Apr, [facility] [address] [facility] [id number] [address] [place] [address] Apr, [facility] [address] [id number] [address] [place] [phone] Mar, [facility] [address] [id number] [address] [place] [address] Mar, Major depressive disorder in partial remission F32.4 ; FRANCIS (generalized anxiety disorder) F41.1 and Restless leg syndrome G25.81 [facility] [address] [id number] [address] [place] [address] Mar, Obesity (BMI 30.0-34.9) E66. 9 [facility] [address] [id number] [address] [place] [address] Jan, [facility] [address] [id number] [address] [place] [address] Jan, Burn T30.0 [facility] [address] [id number] [address] [place] [phone] Dec, [facility] [address] [id number] [address] [place] [phone] Nov, [facility] [address] [id number] [address] [place] [address] Nov, [facility] [address] [id number] [address] [place] [phone] Nov, Dental examination Z01.20 [facility] [address] [id number] [address] [place] [phone] September, [facility] [address] [id number] [address] [place] [address] [id number] September, Decay, teeth K02.9 and Denta l examination Z01.20 [facility] [address] [id number] [address] [place] [id number] September, Dental examination Z01.20 [facility] [address] [id number] [address] [place] [address] September, FRANCIS (generalized anxiety dis order) F41.1 ; Major depressive disorder in partial remission F32.4 and Restless leg syndrome G25.81 [facility] [address] [facility] [id number] [address] [place] [phone] Aug, [facility] [address] [facility] [id number] [address] [place] [phone] Jul, [facility] [address] [place] [id number] [address] [place] [phone] Jul, Encounter to discuss test re sults Z71.2 [facility] [address] [facility] [id number] [address] [place] [address] Jul, Pelvic pain R10.2 ; Screenin g for breast cancer Z12.31 and Obesity (BMI 30.0-34.9) E66.9 [facility] [address] [place] [id number] [address] [place] [phone] Jul, Mild intermittent asthma wit hout complication J45.20 [facility] [address] [facility] [id number] [address] [place] [address] Jul, Major depressive disorder in partial remission F32.4 and FRANCIS (generalized anxiety disorder) F41.1 [facility] [address] [facility] [id number] [address] [place] [phone] Jul, [facility] [address] [place] [id number] [address] [place] [phone] Jun, [facility] [address] [place] [id number] [address] [place] [address] May, Major depressive disorder in partial remission F32.4 ; FRANCIS (generalized anxiety disorder) F41.1 and Restless leg syndrome G25.81 [facility] [address] [facility] [id number] [address] [place] [address] Apr, [facility] [address] [facility] [id number] [address] [place] [address] Mar, [facility] [address] [id number] [address] [place] [phone] 21 Jan, 2018 Pain in thoracic spine M54.6 and Other chronic pain G89.29 [facility] [address] [id number] [address] [place] [phone] 14 Jan, 2018 [facility] [address] [id number] [address] [place] [phone] 11 Jan, 2018 Mild episode of recurrent ma saray depressive disorder F33.0 ; FRANCIS (generalized anxiety disorder) F41.1 and Restless leg syndrome G25.81 [facility] [address] [id number] [address] [place] [address] Dec, [facility] [address] [id number] [address] [place] [phone] Dec, Hospital discharge follow-up Z09 [facility] [address] [id number] [address] [place] [phone] Nov, [facility] [address] [id number] [address] [place] [phone] Nov, [facility] [address] [id number] [address] [place] [phone] September, [facility] [address] [id number] [address] [place] [phone] September, [facility] [address] [id number] [address] [place] [phone] September, Major depressive disorder in partial remission F32.4 ; FRANCIS (generalized anxiety disorder) F41.1 and Restless leg syndrome G25.81 [facility] [address] [id number] [address] [place] [address] September, [facility] [address] [id number] [address] [place] [address] Jul, [facility] [address] [id number] [address] [place] [address] Jul, Dorsalgia, unspecified M54.9 [place] [address] [id number] [address] [place] [phone] Jul, Mild episode of recurrent ma saray depressive disorder F33.0 and FRANCIS (generalized anxiety disorder) F41.1 [facility] [address] [id number] [address] [place] [phone] May, [facility] [address] [id number] [address] [place] [phone] May, Dysuria R30.0 and Acute cyst itis with hematuria N30.01 [facility] [address] [id number] [address] [place] [address] Apr, [place] [address] [facility] [id number] [address] [place] [phone] Apr, Major depressive disorder in partial remission F32.4 and FRANCIS (generalized anxiety disorder) F41.1 [place] [address] [id number] [address] [place] [address] Mar, Paroxysmal tachycardia I47.9 [facility] [address] [id number] [address] [place] [address] Mar, Paroxysmal tachycardia I47.9 and Pain of left lower extremity M79.605 [place] [address] [id number] [address] [place] [address] Mar, FRANCIS (generalized anxiety dis order) F41.1 and Major depressive disorder in partial remission F32.4 [facility] [address] [id number] [address] [place] [address] Jan, [facility] [address] [id number] [address] [place] [address] Jan, [place] [address] [facility] [id number] [address] [place] [address] Jan, [facility] [address] [id number] [address] [place] [address] Dec, Constipation, unspecified co nstipation type K59.00 [facility] [address] [id number] [address] [place] [phone] Dec, [facility] [address] [id number] [address] [place] [address] Nov, [facility] [address] [facility] [id number] [address] [place] [phone] Nov, Major depressive disorder in partial remission F32.4 and FRANCIS (generalized anxiety disorder) F41.1 [facility] [address] [id number] [address] [place] [phone] Oct, Abdominal pain R10.9 and Slo w transit constipation K59.01 [place] [address] [facility] [id number] [address] [place] [address] Aug, Major depressive disorder in partial remission F32.4 ; FRANCIS (generalized anxiety disorder) F41.1 ; Conversion disorder (or hysterical neurosis, conversion type) F44.9 ; Dorsalgia, unspecified M54.9 and Long-term use of high-risk medication Z79.899 [place] [address] [facility] [id number] [address] [place] [address] Aug, [place] [address] [facility] [id number] [address] [place] [address] Jul, Paroxysmal tachycardia I47.9 [place] [address] [facility] [id number] [address] [place] [address] Jul, Paroxysmal tachycardia I47.9 [facility] [address] [id number] [address] [place] [address] Jun, [place] [address] [facility] [id number] [address] [place] [address] Jun, Major depressive disorder in partial remission F32.4 ; FRANCIS (generalized anxiety disorder) F41.1 and Conversion disorder (or hysterical neurosis, conversion type) F44.9 [facility] [address] [facility] [id number] [address] [place] [address] May, Pelvic pain R10.2 [facility] [address] [facility] [id number] [address] [place] [address] Apr, Gastroenteritis K52.9 [facility] [address] [facility] [id number] [address] [place] [address] Apr, Blood in urine R31.9 and Acu te cystitis with hematuria N30.01 [facility] [address] [facility] [id number] [address] [place] [address] Apr, Major depressive disorder in partial remission F32.4 ; FRANCIS (generalized anxiety disorder) F41.1 and Conversion disorder (or hysterical neurosis, conversion type) F44.9 [facility] [address] [place] [id number] [address] [place] [phone] Apr, [place] [address] [address] Apr, Abnormal mammogram R92.8 [facility] [address] [facility] [id number] [place] [phone] Mar, [place] [address] [place] [id number] [place] [phone] Mar, Gastroenteritis K52.9 and Se izure disorder G40.909 [facility] [address] [place] [id number] [address] [place] [address] Dec, [facility] [address] [facility] [id number] [address] [place] [address] Dec, Other headache syndrome G44. 89 [facility] [address] [place] [id number] [address] [place] [address] Dec, [place] [address] [place] [id number] [place] [address] Dec, Thoracic disc herniation M51 .24 [facility] [address] [place] [id number] [address] [place] [address] Dec, [facility] [address] [id number] [address] [place] [address] Nov, Major depressive disorder in partial remission F32.4 and FRANCIS (generalized anxiety disorder) F41.1 [facility] [address] [id number] [address] [place] [address], [place] [address] Nov, [facility] [address] [id number] [address] [place] [address] Nov, Dorsalgia, unspecified M54.9 [facility] [address] [id number] [address] [place] [address], [place] [address] Oct, [facility] [address] [id number] [address] [place] [address], [place] [address] September, [facility] [address] [id number] [address] [place] [phone] Aug, [facility] [address] [id number] [address] [place] [phone] Aug, Major depressive disorder in partial remission F32.4 and FRANCIS (generalized anxiety disorder) F41.1 [facility] [address] [id number] [address] [place] [phone] Aug, [facility] [address] [id number] [address] [place] [phone] Jul, Abnormal mammogram R92.8 [facility] [address] [id number] [address] [place] [address] Jul, [facility] [address] [id number] [address] [place] [address] Jul, [facility] [address] [id number] [address] [place] [phone] 14 Jul, 2015 [facility] [address] [id number] [address] [place] [address] Jul, [facility] [address] [id number] [address] [place] [address] Jul, [facility] [address] [id number] [address] [place] [address] Jul, [facility] [address] [id number] [address] [place] [phone] Jun, Major depressive disorder in partial remission F32.4 and FRANCIS (generalized anxiety disorder) F41.1 [facility] [address] [id number] [address] [place] [address] Jun, [facility] [address] [id number] [address] [place] [address] May, [facility] [address] [id number] [address] [place] [address] Apr, [facility] [address] [id number] [address] [place] [phone] Mar, Major depressive disorder, r ecurrent episode, moderate F33.1 ; PTSD (post-traumatic stress disorder) F43.10 and FRANCIS (generalized anxiety disorder) F41.1 [facility] [address] [id number] [address] [place] [address] Mar, [facility] [address] [id number] [address] [place] [address] Mar, [facility] [address] [id number] [address] [place] [address] Mar, [facility] [address] [id number] [address] [place] [phone] Mar, [facility] [address] [id number] [address] [place] [address] Jan, [facility] [address] [id number] [address] [place] [phone] Jan, [facility] [address] [id number] [address] [place] [address] Jan, [facility] [address] [id number] [address] [place] [address] Jan, Thoracic disc herniation 722 .11 [facility] [address] [id number] [address] [place] [address] Dec, [facility] [address] [id number] [address] [place] [phone] Dec, [facility] [address] [id number] [address] [place] [address] Dec, [facility] [address] [id number] [address] [place] [phone] Nov, [facility] [address] [id number] [address] [place] [address] Nov, Generalized anxiety disorder 300.02 ; Posttraumatic stress disorder 309.81 and Major depressive disorder, recurrent episode, moderate 296.32 [facility] [address] [id number] [address] [place] [address] Nov, [facility] [address] [id number] [address] [place] [phone] Nov, [facility] [address] [id number] [address] [place] [phone] Oct, [facility] [address] [id number] [address] [place] [phone] Oct, [facility] [address] [id number] [address] [place] [address] Oct, [facility] [address] [id number] [address] [place] [address] September, [facility] [address] [id number] [address] [place] [id number] September, [facility] [address] [id number] [address] [place] [id number] Aug, [facility] [address] [id number] [address] [place] [phone] Aug, [facility] [address] [id number] [address] [place] [address], [place] [id number] 25 Jul, 2014 [facility] [address] [id number] [address] [place] [address], [place] [phone] Jul, [facility] [address] [id number] [address] [place] [address], [place] [id number] 17 Jul, 2014 [facility] [address] [id number] [address] [place] [address], [place] [id number] 17 Jul, 2014 [facility] [address] [id number] [address] [place] [address], [place] [address] 16 Jul, 2014 [facility] [address] [id number] [address] [place] [address], [place] [address] 16 Jul, 2014 [facility] [address] [id number] [address] [place] [address], [place] [address] 19 Jul, 2014 [facility] [address] [id number] [address] [place] [address], [place] [address] Jul, [facility] [address] [id number] [address] [place] [address], [place] [address] Jul, [facility] [address] [id number] [address] [place] [address], [place] [address] Jul, [facility] [address] [id number] [address] [place] [address], [place] [address] Jun, [facility] [address] [id number] [address] [place] [address], [place] [address] Jun, [facility] [address] [id number] [address] [place] [address], [place] [address] Jun, [facility] [address] [id number] [address] [place] [address], [place] [address] May, [facility] [address] [id number] [address] [place] [address], [place] [address] Apr, [facility] [address] [id number] [address] [place] [address], [place] [address] Apr, [facility] [address] [id number] [address] [place] [address], [place] [address] Apr, [facility] [address] [id number] [address] [place] [address], [place] [address] Apr, [facility] [address] [id number] [address] [place] [address], [place] [address] Apr, [facility] [address] [id number] [address] [place] [address], [place] [address] Apr, [facility] [address] [id number] [address] [place] [address], [place] [address] Apr, [facility] [address] [id number] [address] [place] [address], [place] [address] Apr, [facility] [address] [id number] [address] [place] [address], [place] [address] Mar, [facility] [address] [id number] [address] [place] [address], [place] [address] Mar, [facility] [address] [id number] [address] [place] [address], [place] [address] Mar, [facility] [address] [id number] [address] [place] [address], [place] [address] Mar, [facility] [address] [id number] [address] [place] [address] Mar, [facility] [address] [id number] [address] [place] [id number] Mar, [facility] [address] [id number] [address] [place] [address], [place] [address] Mar, [facility] [address] [id number] [address] [place] [address], [place] [address] Mar, [facility] [address] [id number] [address] [place] [address], [place] [address] Mar, [facility] [address] [id number] [address] [place] [address], [place] [address] 2013 [facility] [address] [id number] [address] [place] [address], [place] [address] 17 Mar, 2013 [facility] [address] [id number] [address] [place] [address], [place] [address] 14 Mar, 2013 [facility] [address] [id number] [address] [place] [address], [place] [address] 14 Mar, 2013 [facility] [address] [id number] [address] [place] [address], [place] [address] 07 Mar, 2013 [facility] [address] [id number] [address] [place] [address], [place] [address] 07 Mar, 2013 [facility] [address] [id number] [address] [place] [address], [place] [address] 06 Mar, 2013 [facility] [address] [id number] [address] [place] [address], [place] [address] 06 Mar, 2013 [facility] [address] [id number] [address] [place] [address], [place] [address] 19 Sep, 2013 [facility] [address] [id number] [address] [place] [address], [place] [address] 19 Sep, 2013 [facility] [address] [id number] [address] [place] [address], [place] [address] 09 Sep, 2013 [facility] [address] [id number] [address] [place] [address], [place] [address] 09 Sep, 2013 [facility] [address] [id number] [address] [place] [address], [place] [address] 05 Sep, 2013 [facility] [address] [id number] [address] [place] [address], [place] [address] 05 Sep, 2013 [facility] [address] [id number] [address] [place] [address], [place] [address] 05 Sep, 2013 [facility] [address] [id number] [address] [place] [address], [place] [address] 05 Sep, 2013 [facility] [address] [id number] [address] [place] [address], [place] [address] Jan, 2013 [facility] [address] [id number] [address] [place] [address], [place] [address] Jan, [facility] [address] [id number] [address] [place] [address], [place] [address] Jan, 2013 [facility] [address] [id number] [address] [place] [address], [place] [address] Jan, [facility] [address] [id number] [address] [place] [address], [place] [address] Jan, [facility] [address] [id number] [address] [place] [address], [place] [address] Dec, [facility] [address] [id number] [address] [place] [address], [place] [address] Dec, [facility] [address] [id number] [address] [place] [address], [place] [address] Dec, [facility] [address] [id number] [address] [place] [address], [place] [address] Dec, [facility] [address] [id number] [address] [place] [address], [place] [address] Dec, [facility] [address] [id number] [address] [place] [address], [place] [address] Dec, [facility] [address] [place] [id number] Dec, [facility] [address] [place] [id number] Dec, [facility] [address] [id number] [address] [place] [address], [place] [address] Dec, [facility] [address] [id number] [address] [place] [address], [place] [address] Dec, [facility] [address] [id number] [address] [place] [address], [place] [address] Dec, [facility] [address] [id number] [facility] [place] [address] Dec, [facility] [address] [id number] [facility] [place] [address] Nov, [facility] [address] [id number] [facility] [place] [address] Nov, [facility] [address] [id number] [address] [place] [address], [place] [address] Nov, [facility] [address] [id number] [address] [place] [address], [place] [address] Nov, [facility] [address] [id number] [address] [place] [address], [place] [address] Nov, [facility] [address] [id number] [address] [place] [address], [place] [address] Nov, [facility] [address] [id number] [address] [place] [address], [place] [address] Nov, [facility] [address] [id number] [address] [place] [address], [place] [address] Nov, [facility] [address] [id number] [address] [place] [address], [place] [address] Nov, [facility] [address] [id number] [address] [place] [address], [place] [address] Nov, [facility] [address] [id number] [address] [place] [address], [place] [address] Nov, [facility] [address] [id number] [address] [place] [address], [place] [address] Nov, [facility] [address] [id number] [address] [place] [address], [place] [address] Nov, [facility] [address] [id number] [address] [place] [address], [place] [address] Oct, [facility] [address] [id number] [address] [place] [address], [place] [address] Oct, [facility] [address] [id number] [facility] [place] [address] Oct, [facility] [address] [id number] [address] [place] [address], [place] [address] Oct, [facility] [address] [id number] [address] [place] [address], [place] [address] Oct, [facility] [address] [id number] [address] [place] [address], [place] [address] Oct, [facility] [address] [id number] [address] [place] [address], [place] [address] Oct, [facility] [address] [id number] [address] [place] [address], [place] [address] Oct, [facility] [address] [id number] [address] [place] [address], [place] [address] Oct, [facility] [address] [id number] [address] [place] [address], [place] [address] Oct, [facility] [address] [id number] [address] [place] [address], [place] [address] Oct, [facility] [address] [id number] [address] [place] [address], [place] [address] Oct, [facility] [address] [id number] [address] [place] [address], [place] [address] September, [facility] [address] [id number] [address] [place] [address], [place] [address] September, [facility] [address] [id number] [address] [place] [address], [place] [address] September, [facility] [address] [id number] [address] [place] [address], [place] [address] September, [facility] [address] [id number] [address] [place] [address], [place] [address] Aug, [facility] [address] [id number] [facility] [place] [address] Aug, [facility] [address] [id number] [facility] [place] [address] Aug, [facility] [address] [id number] [facility] [place] [address] Aug, [facility] [address] [id number] [address] [place] [address], [place] [address] Aug, [facility] [address] [id number] [address] [place] [address], [place] [address] Aug, [facility] [address] [id number] [address] [place] [address], [place] [address] Aug, [facility] [address] [id number] [address] [place] [address], [place] [address] Jul, [facility] [address] [id number] [address] [place] [address], [place] [address] Jul, [facility] [address] [id number] [address] [place] [address], [place] [address] Jul, [facility] [address] [id number] [address] [place] [address], [place] [address] Jul, [facility] [address] [id number] [address] [place] [address], [place] [address] Jul, [facility] [address] [id number] [address] [place] [address], [place] [address] Jul, [facility] [address] [id number] [address] [place] [address], [place] [address] Jul, [facility] [address] [id number] [address] [place] [address], [place] [address] Jul, [facility] [address] [id number] [address] [place] [address], [place] [address] Jul, [facility] [address] [id number] [address] [place] [address], [place] [address] Jul, [facility] [address] [id number] [facility] [place] [address] 18 Jul, 2013 [facility] [address] [id number] [address] [place] [address], [place] [address] 18 Jul, 2013 [facility] [address] [id number] [address] [place] [address], [place] [address] 14 Jul, 2013 [facility] [address] [id number] [address] [place] [address], [place] [address] 14 Jul, 2013 [facility] [address] [id number] [address] [place] [address], [place] [address] Jul, [facility] [address] [id number] [address] [place] [address], [place] [address] Jul, [facility] [address] [id number] [address] [place] [address], [place] [address] Jul, [facility] [address] [id number] [address] [place] [address], [place] [address] Jul, [facility] [address] [id number] [address] [place] [address], [place] [address] Jun, [facility] [address] [id number] [address] [place] [address], [place] [address] Jun, [facility] [address] [id number] [address] [place] [address], [place] [address] Jun, [facility] [address] [id number] [address] [place] [address], [place] [address] 15 Jun, 2013 [facility] [address] [id number] [address] [place] [address], [place] [address] Jun, [facility] [address] [id number] [address] [place] [address], [place] [address] Jun, [facility] [address] [id number] [address] [place] [address], [place] [address] 14 Jun, 2013 [facility] [address] [id number] [address] [place] [address], [place] [address] 14 Jun, 2013 [facility] [address] [id number] [address] [place] [address], [place] [address] 14 Jun, 2013 [facility] [address] [id number] [address] [place] [address], [place] [address] 14 Jun, 2013 [facility] [address] [id number] [address] [place] [address], [place] [address] 27 May, 2013 [facility] [address] [id number] [address] [place] [address], [place] [address] 27 May, 2013 [facility] [address] [id number] [address] [place] [address], [place] [address] 26 May, 2013 [facility] [address] [id number] [address] [place] [address], [place] [address] 19 May, 2013 [facility] [address] [id number] [address] [place] [address], [place] [address] 19 May, 2013 [facility] [address] [id number] [address] [place] [address], [place] [address] 16 May, 2013 [facility] [address] [id number] [address] [place] [address], [place] [address] 16 May, 2013 [facility] [address] [id number] [address] [place] [address], [place] [address] 16 May, 2013 [facility] [address] [id number] [address] [place] [address], [place] [address] 16 May, 2013 [facility] [address] [id number] [address] [place] [address], [place] [address] 13 May, 2013 [facility] [address] [id number] [address] [place] [address], [place] [address] 13 May, 2013 [facility] [address] [id number] [address] [place] [address], [place] [address] 11 May, 2013 [facility] [address] [id number] [address] [place] [address], [place] [address] Apr, [facility] [address] [id number] [address] [place] [address], [place] [address] 18 Apr, 2013 [facility] [address] [id number] [address] [place] [address], [place] [address] 18 Apr, 2013 [facility] [address] [id number] [address] [place] [address], [place] [address] Apr, [facility] [address] [id number] [address] [place] [address], [place] [address] Apr, [facility] [address] [id number] [address] [place] [address], [place] [address] Apr, [facility] [address] [id number] [address] [place] [address], [place] [address] Apr, [facility] [address] [id number] [address] [place] [address], [place] [address] Apr, [facility] [address] [id number] [address] [place] [address] Apr, [facility] [address] [id number] [address] [place] [address], [place] [address] Apr, [facility] [address] [id number] [address] [place] [address] Apr, [facility] [address] [id number] [address] [place] [address] Mar, [facility] [address] [id number] [address] [place] [address] Mar, [facility] [address] [id number] [address] [place] [id number] Mar, [facility] [address] [id number] [address] [place] [id number] Mar, [facility] [address] [id number] [address] [place] [address] Mar, [facility] [address] [id number] [address] [place] [address] Mar, [facility] [address] [id number] [address] [place] [address], [place] [address] Mar, [facility] [address] [id number] [address] [place] [address], [place] [address] Mar, [facility] [address] [id number] [address] [place] [address], [place] [address] Mar, [facility] [address] [id number] [address] [place] [address], [place] [address] Mar, [facility] [address] [id number] [address] [place] [address], [place] [id number] Mar, [facility] [address] [id number] [address] [place] [address], [place] [id number] Mar, [facility] [address] [id number] [address] [place] [address], [place] [address] 30 Jan, 2013 [facility] [address] [id number] [address] [place] [address], [place] [id number] Jan, [facility] [address] [id number] [address] [place] [address], [place] [id number] 20 Jan, 2013 [facility] [address] [id number] [address] [place] [address], [place] [address] Jan, [facility] [address] [id number] [address] [place] [address], [place] [address] Dec, [facility] [address] [id number] [address] [place] [address], [place] [address] Dec, [facility] [address] [id number] [address] [place] [address], [place] [address] Dec, [facility] [address] [id number] [address] [place] [address], [place] [address] Dec, [facility] [address] [id number] [address] [place] [address], [place] [address] Dec, [facility] [address] [id number] [facility] [place] [address] Dec, [facility] [address] [id number] [address] [place] [address], [place] [id number] Dec, [facility] [address] [id number] [address] [place] [address], [place] [address] Dec, [facility] [address] [id number] [address] [place] [address], [place] [address] Dec, [facility] [address] [id number] [address] [place] [address], [place] [address] Nov, [facility] [address] [id number] [address] [place] [address], [place] [address] Nov, [facility] [address] [id number] [address] [place] [address], [place] [address] Nov, [facility] [address] [id number] [address] [place] [address], [place] [address] Nov, [facility] [address] [id number] [address] [place] [address], [place] [address] Nov, [facility] [address] [id number] [address] [place] [address], [place] [address] Nov, [facility] [address] [id number] [address] [place] [address], [place] [address] Nov, [facility] [address] [id number] [address] [place] [address], [place] [id number] Nov, [facility] [address] [id number] [address] [place] [address], [place] [address] Oct, [facility] [address] [id number] [address] [place] [address], [place] [address] Oct, [facility] [address] [id number] [address] [place] [address], [place] [id number] Oct, [facility] [address] [id number] [address] [place] [address], [place] [address] Oct, [facility] [address] [id number] [address] [place] [address], [place] [address] Oct, [facility] [address] [id number] [address] [place] [address], [place] [address] Oct, [facility] [address] [id number] [address] [place] [address], [place] [address] Oct, [facility] [address] [id number] [address] [place] [address], [place] [id number] Oct, [facility] [address] [id number] [address] [place] [address], [place] [address] Oct, [facility] [address] [id number] [address] [place] [address], [place] [id number] 18 Oct, 2012 [facility] [address] [id number] [address] [place] [address], [place] [id number] 17 Oct, 2012 [facility] [address] [id number] [address] [place] [address], [place] [address] 14 Oct, 2012 [facility] [address] [id number] [address] [place] [address], [place] [id number] 07 Oct, 2012 [facility] [address] [id number] [address] [place] [address], [place] [id number] 30 Sep, 2012 [facility] [address] [id number] [address] [place] [address], [place] [address] September, [facility] [address] [id number] [address] [place] [address], [place] [address] September, [facility] [address] [id number] [address] [place] [address], [place] [address] Aug, [facility] [address] [id number] [address] [place] [address], [place] [address] 24 Aug, 2012 [facility] [address] [id number] [address] [place] [address], [place] [id number] 18 Aug, 2012 [facility] [address] [id number] [address] [place] [address], [place] [address] 18 Aug, 2012 [facility] [address] [id number] [address] [place] [address], [place] [address] 18 Aug, 2012 [facility] [address] [id number] [address] [place] [address], [place] [id number] 08 Aug, 2012 [facility] [address] [id number] [address] [place] [address], [place] [address] 05 Aug, 2012 [facility] [address] [id number] [address] [place] [address], [place] [address] Jul, [facility] [address] [id number] [address] [place] [address], [place] [address] Jul, [facility] [address] [id number] [address] [place] [address], [place] [id number] Jul, [facility] [address] [id number] [address] [place] [address], [place] [address] Jul, [facility] [facility] [address] [id number] [address] [place] [address], [place] [id number] Jul, [facility] [address] [id number] [address] [place] [address], [place] [address] Jul, [facility] [address] [id number] [address] [place] [address], [place] [address] Jul, [facility] [address] [id number] [address] [place] [address], [place] [id number] Jul, [facility] [address] [id number] [address] [place] [address], [place] [id number] Jul, [facility] [address] [id number] [address] [place] [address], [place] [id number] 19 Jul, 2012 [facility] [address] [id number] [address] [place] [address], [place] [id number] 11 Jul, 2012 [facility] [address] [id number] [address] [place] [address], [place] [id number] 06 Jul, 2012 [facility] [address] [id number] [address] [place] [address], [place] [address] Jul, [facility] [address] [id number] [address] [place] [address], [place] [address] 24 Jun, 2012 [facility] [address] [id number] [address] [place] [address], [place] [address] Jun, [facility] [address] [id number] [address] [place] [address], [place] [address] Jun, [facility] [address] [id number] [address] [place] [address], [place] [id number] 17 Jun, 2012 [facility] [address] [id number] [address] [place] [address], [place] [id number] 15 Jun, 2012 [facility] [address] [id number] [address] [place] [address], [place] [id number] Jun, [facility] [address] [id number] [address] [place] [address], [place] [id number] Jun, [facility] [address] [id number] [address] [place] [address], [place] [address] May, [facility] [address] [id number] [address] [place] [address], [place] [address] May, [facility] [address] [id number] [address] [place] [address], [place] [address] May, [facility] [address] [id number] [address] [place] [address], [place] [address] May, [facility] [address] [id number] [address] [place] [address], [place] [address] May, [facility] [address] [id number] [address] [place] [address], [place] [id number] 24 May, 2012 [facility] [address] [id number] [address] [place] [address], [place] [id number] May, [facility] [address] [id number] [address] [place] [address], [place] [address] May, [facility] [address] [id number] [address] [place] [address], [place] [address] May, [facility] [address] [id number] [address] [place] [address], [place] [address] May, [facility] [address] [id number] [address] [place] [address], [place] [address] Apr, [facility] [address] [id number] [address] [place] [address], [place] [id number] Apr, [facility] [address] [id number] [address] [place] [address], [place] [address] Apr, [facility] [address] [id number] [address] [place] [address], [place] [address] Apr, [facility] [address] [id number] [address] [place] [address], [place] [address] Apr, [facility] [address] [id number] [address] [place] [address], [place] [address] Apr, [facility] [address] [id number] [address] [place] [address], [place] [address] Apr, [facility] [address] [id number] [address] [place] [address], [place] [address] Apr, [facility] [address] [id number] [address] [place] [address], [place] [address] Apr, [facility] [address] [id number] [address] [place] [address], [place] [address] Apr, [facility] [address] [id number] [address] [place] [address], [place] [address] Apr, [facility] [address] [id number] [address] [place] [address], [place] [address] Apr, [facility] [address] [id number] [address] [place] [address], [place] [address] Mar, [facility] [address] [id number] [address] [place] [address], [place] [address] Mar, 2011 [facility] [address] [id number] [address] [place] [address], [place] [id number] Mar, 2011 [facility] [address] [id number] [address] [place] [address], [place] [address] Mar, 2011 [facility] [address] [id number] [address] [place] [address], [place] [address] Mar, 2011 [facility] [address] [id number] [address] [place] [address], [place] [address] Mar, 2011 [facility] [address] [id number] [address] [place] [address], [place] [address] Mar, 2011 [facility] [address] [id number] [address] [place] [address], [place] [address] Mar, 2011 [facility] [address] [id number] [address] [place] [address], [place] [address] Mar, 2011 [facility] [address] [id number] [address] [place] [address], [place] [address] Mar, [facility] [address] [id number] [address] [place] [id number] Mar, [facility] [address] [id number] [address] [place] [id number] Mar, [facility] [address] [id number] [address] [place] [address] Mar, [facility] [address] [id number] [address] [place] [address], [place] [address] Mar, [facility] [address] [id number] [address] [place] [id number] Mar, [facility] [address] [id number] [address] [place] [id number] Mar, [facility] [address] [id number] [address] [place] [id number] 25 Sep, 2011 [facility] [address] [id number] [address] [place] [address], [place] [address] 24 Sep, 2011 [facility] [address] [id number] [address] [place] [address], [place] [id number] 22 Jan, 2011 [facility] [address] [id number] [address] [place] [address], [place] [id number] 22 Jan, 2011 [facility] [address] [id number] [address] [place] [address], [place] [id number] 21 Jan, 2011 [facility] [address] [id number] [address] [place] [address], [place] [id number] 18 Jan, 2011 [facility] [address] [id number] [address] [place] [address], [place] [address] 14 Jan, 2012 [facility] [address] [id number] [address] [place] [address], [place] [id number] 07 Jan, 2012 [facility] [address] [id number] [address] [place] [address], [place] [address] 15 Dec, 2011 [facility] [address] [id number] [address] [place] [address], [place] [id number] 10 Dec, 2011 [facility] [address] [id number] [address] [place] [address], [place] [address] Dec, [facility] [address] [id number] [address] [place] [address], [place] [address] Dec, [facility] [address] [id number] [address] [place] [address], [place] [id number] Dec, [facility] [address] [id number] [address] [place] [address], [place] [address] Dec, [facility] [address] [id number] [address] [place] [address], [place] [id number] Dec, [facility] [address] [id number] [address] [place] [address], [place] [address] Nov, [facility] [address] [id number] [address] [place] [address], [place] [id number] 06 Oct, 2011 [facility] [address] [id number] [address] [place] [address], [place] [id number] 05 Aug, 2011 [facility] [address] [id number] [address] [place] [address], [place] [id number] 22 Jul, 2011 [facility] [address] [id number] [address] [place] [address], [place] [id number] 19 Jul, 2011 [facility] [address] [id number] [address] [place] [address], [place] [address] 16 Jul, 2011 [facility] [address] [id number] [address] [place] [address], [place] [id number] 14 Jul, 2011 [facility] [address] [id number] [address] [place] [address], [place] [id number] 07 Jul, 2011 [facility] [address] [id number] [address] [place] [address], [place] [id number] 02 Jul, 2011 [facility] [address] [id number] [address] [place] [address], [place] [id number] 21 Jul, 2011 [facility] [address] [id number] [address] [place] [address], [place] [id number] 15 Jul, 2011 [facility] [address] [id number] [address] [place] [address], [place] [id number] 13 Jul, 2011 [facility] [address] [id number] [address] [place] [address], [place] [id number] 03 Jul, 2011 [facility] [address] [id number] [address] [place] [address], [place] [id number] 02 Jul, 2011 [facility] [address] [id number] [address] [place] [address], [place] [id number] 24 Jun, 2011 [facility] [address] [id number] [address] [place] [address], [place] [id number] 24 Jun, 2011 [facility] [address] [id number] [address] [place] [address], [place] [address] Jun, [facility] [address] [id number] [address] [place] [address], [place] [id number] Jun, [facility] [address] [id number] [address] [place] [address], [place] [address] Jun, [facility] [address] [id number] [address] [place] [address], [place] [address] Jun, [facility] [address] [id number] [address] [place] [address], [place] [address] Jun, [facility] [address] [id number] [address] [place] [address], [place] [address] May, [facility] [address] [id number] [address] [place] [address], [place] [address] May, [facility] [address] [id number] [address] [place] [address], [place] [id number] May, [facility] [address] [id number] [address] [place] [address], [place] [address] May, [facility] [address] [id number] [address] [place] [address], [place] [address] May, [facility] [address] [id number] [address] [place] [address], [place] [id number] May, [facility] [address] [id number] [address] [place] [address], [place] [address] May, [facility] [address] [id number] [address] [place] [address], [place] [address] May, [facility] [address] [id number] [address] [place] [address], [place] [address] May, [facility] [address] [id number] [address] [place] [address], [place] [address] May, [facility] [address] [id number] [address] [place] [address], [place] [id number] 15 Apr, 2011 [facility] [address] [id number] [address] [place] [id number] Apr, [facility] [address] [id number] [address] [place] [id number] Apr, [facility] [address] [id number] [address] [place] [address] Apr, [facility] [address] [id number] [address] [place] [id number] Mar, [facility] [address] [id number] [address] [place] [address] Mar, [facility] [address] [id number] [address] [place] [id number] Mar, [facility] [address] [facility] [id number] [address] [place] [id number] Mar, IMMUNIZATIONS No Known Immunizations SOCIAL HISTORY Never Assessed REASON FOR VISIT PLAN OF CARE VITAL SIGNS Height 61 in 2013-03-23 Weight 177 lbs 2013-03-23 Heart Rate 108 bpm 2013-03-23 Respiratory Rate 22 2013-03-23 Blood pressure systolic 108 mmHg 2013-03-23 Blood pressure diastolic 66 mmHg 2013-03-23 MEDICATIONS Unknown Medications RESULTS No Results PROCEDURES [...] [facility] 03/24/16 Hospitalization History [facility] for kidney stones/hypertension 0 12/2017
--- OUTSIDE RECORDS SUMMARY | 2020-01-03 17:54 | XMS REPORT ---
Author Author Pattie Moffett Doctor Organization [facility] Address Unknown Phone Unavailable Care Team Providers Care Medical Lab Technician Name Role Phone Migration, Doctor Unavailable Unavailable PROBLEMS Type Condition ICD9-CM Code CYJ33-XL Code Onset Dates Condition S tatus SNOMED Code Problem FRANCIS (generalized anxiety disorder) F41.1 Active 65473688 Problem Thoracic disc herniation M51.24 Activ e 902188389 Problem Major depressive disorder in partial remission F32 .4 Active 79620877 Problem Seizure disorder G40.909 Active 128 211226 Problem Conversion disorder (or hysterical neurosis, conversion ty pe) F44.9 Active 68226089 Problem Constipation, unspecified constipation type K59.00 Active 84286533 Problem Mild episode of recurrent major depressive disorder F33.0 Active 743596412 Problem Restless leg syndrome G25.81 Active 06301460 Problem Nonadherence to medication Z91.14 Act vivian 046111961 Problem Slow transit constipation K59.01 Acti ve 25012989 Problem Atrophic vaginitis N95.2 Active 5 9104693 Problem Paroxysmal tachycardia I47.9 Active 90173989 Problem Other chronic pain G89.29 Active 8 6026369 Problem Mild intermittent asthma without complication J45. 20 Active 422700940 Problem Obesity (BMI 30.0-34.9) E66.9 Active [id number] Problem High blood pressure I10 Active 20967127 ALLERGIES No Information ENCOUNTERS Encounter Location Date Diagnosis [facility] [place] [address] [facility] [place] [id number] [address] [place] [phone] 08 Nov, 2019 [facility] [place] [address] [facility] [place] [id number] [address] [place] [phone] Nov, [address] [id number] [id number] 26 Oct, 2019 Breast cancer screening Z12.[address] [id number] [address] 08 Oct, 2019 Breast cancer screening Z12. 39 [facility] [place] [address] [id number] [address] [place] [phone] Oct, [facility] [place] [address] [id number] [address] [place] [phone] Oct, [facility] [place] [address] [id number] [address] [place] [phone] September, [facility] [place] [address] [id number] [address] [place] [phone] September, [facility] [place] [address] [id number] [address] [place] [phone] September, Well woman exam with routine gynecological exam Z01.419 and Atrophic vaginitis N95.2 [facility] [place] [address] [id number] [address] [place] [phone] September, Major depressive disorder in partial remission F32.4 ; FRANCIS (generalized anxiety disorder) F41.1 ; Restless leg syndrome G25.81 and Nonadherence to medication Z91.14 [facility] [place] [address] [id number] [address] [place] [id number] September, [facility] [place] [address] [id number] [address] [place] [phone] Aug, [facility] [address] [facility] [id number] [address] [place] [id number] Aug, Dental examination Z01.20 [facility] [address] [id number] [address] [place] [address] [id number] Aug, Dental examination Z01.20 an d Caries K02.9 [facility] [address] [id number] [address] [place] [phone] Aug, [facility] [address] [id number] [address] [place] [phone] Aug, [facility] [address] [id number] [address] [place] [phone] Aug, Other chronic pain G89.29 an d Back muscle spasm M62.830 [facility] [place] [address] [id number] [address] [place] [phone] 07 Aug, 2019 [facility] [place] [address] [id number] [address] [place] [phone] Aug, Major depressive disorder in partial remission F32.4 ; FRANCIS (generalized anxiety disorder) F41.1 ; Restless leg syndrome G25.81 and Nonadherence to medication Z91.14 [facility] [place] [address] [id number] [address] [place] [phone] Aug, [facility] [place] [address] [id number] [address] [place] [id number] Jul, [facility] [place] [address] [id number] [address] [place] [id number] Jul, [facility] [place] [address] [id number] [address] [place] [phone] Jul, Major depressive disorder in partial remission F32.4 ; FRANCIS (generalized anxiety disorder) F41.1 ; Restless leg syndrome G25.81 and High blood pressure I10 [facility] [place] [address] [id number] [address] [place] [id number] 17 Jul, 2019 [facility] [place] [address] [id number] [address] [place] [phone] Jul, [facility] [place] [address] [id number] [address] [place] [id number] Jun, [facility] [place] [address] [id number] [address] [place] [phone] May, [facility] [place] [address] [id number] [address] [place] [phone] Apr, [facility] [place] [address] [id number] [address] [place] [phone] Apr, [facility] [place] [address] [id number] [address] [place] [phone] Mar, [facility] [place] [address] [id number] [address] [place] [phone] Mar, Major depressive disorder in partial remission F32.4 ; FRANCIS (generalized anxiety disorder) F41.1 and Restless leg syndrome G25.81 [facility] [place] [address] [id number] [address] [place] [phone] Mar, Obesity (BMI 30.0-34.9) E66. 9 [facility] [place] [address] [id number] [address] [place] [phone] Jan, [facility] [address] [id number] [address] [place] [phone] Jan, Burn T30.0 [facility] [place] [address] [id number] [address] [place] [phone] Dec, [facility] [place] [address] [id number] [address] [place] [phone] Nov, [facility] [place] [address] [id number] [address] [place] [phone] Nov, [facility] [address] [id number] [address] [place] [address] [phone] Nov, Dental examination Z01.20 [facility] [place] [address] [id number] [address] [place] [phone] September, [facility] [address] [id number] [address] [place] [address] [id number] September, Decay, teeth K02.9 and Denta l examination Z01.20 [facility] [address] [id number] [address] [place] [address] [id number] September, Dental examination Z01.20 [facility] [place] [address] [id number] [address] [place] [phone] September, FRANCIS (generalized anxiety dis order) F41.1 ; Major depressive disorder in partial remission F32.4 and Restless leg syndrome G25.81 [facility] [place] [address] [phone] Aug, [facility] [place] [address] [phone] Jul, [facility] [place] [address] [place] [id number] [place] [phone] Jul, Encounter to discuss test re sults Z71.2 [facility] [place] [address] [phone] Jul, Pelvic pain R10.2 ; Screenin g for breast cancer Z12.31 and Obesity (BMI 30.0-34.9) E66.9 [place] [address] [phone] Jul, Mild intermittent asthma wit hout complication J45.20 [place] [address] [phone] Jul, Major depressive disorder in partial remission F32.4 and FRANCIS (generalized anxiety disorder) F41.1 [place] [address] [phone] Jul, [facility] [place] [address] [phone] Jun, [place] [address] [id number] May, Major depressive disorder in partial remission F32.4 ; FRANCIS (generalized anxiety disorder) F41.1 and Restless leg syndrome G25.81 [place] [address] [phone] Apr, [facility] [place] [address] [place] [id number] [place] [phone] Mar, [facility] [address] [place] [id number] [address] [place] [phone] 21 Sep, 2018 Pain in thoracic spine M54.6 and Other chronic pain G89.29 [facility] [place] [address] [id number] [address] [place] [phone] 14 Jan, 2018 [facility] [place] [address] [id number] [address] [place] [phone] 11 Jan, 2018 Mild episode of recurrent ma saray depressive disorder F33.0 ; FRANCIS (generalized anxiety disorder) F41.1 and Restless leg syndrome G25.81 [facility] [place] [address] [id number] [address] [place] [phone] Dec, [facility] [place] [address] [id number] [address] [place] [phone] Dec, Hospital discharge follow-up Z09 [facility] [place] [address] [id number] [address] [place] [phone] Nov, [facility] [place] [address] [id number] [address] [place] [phone] Nov, [facility] [place] [address] [id number] [address] [place] [phone] September, [facility] [place] [address] [id number] [address] [place] [phone] September, [facility] [place] [address] [id number] [address] [place] [phone] September, Major depressive disorder in partial remission F32.4 ; FRANCIS (generalized anxiety disorder) F41.1 and Restless leg syndrome G25.81 [facility] [place] [address] [id number] [address] [place] [phone] September, [facility] [place] [address] [id number] [address] [place] [id number] Jul, [facility] [place] [address] [id number] [address] [place] [phone] Jul, Dorsalgia, unspecified M54.9 [facility] [place] [address] [id number] [address] [place] [phone] Jul, Mild episode of recurrent ma saray depressive disorder F33.0 and FRANCIS (generalized anxiety disorder) F41.1 [facility] [place] [address] [id number] [address] [place] [phone] May, [facility] [address] [facility] [id number] [address] [place] [phone] May, Dysuria R30.0 and Acute cyst itis with hematuria N30.01 [facility] [place] [address] [id number] [address] [place] [phone] Apr, [place] [address] [facility] [id number] [address] [place] [phone] Apr, Major depressive disorder in partial remission F32.4 and FRANCIS (generalized anxiety disorder) F41.1 [place] [address] [facility] [place] [id number] [address] [place] [phone] Mar, Paroxysmal tachycardia I47.9 [place] [address] [facility] [place] [id number] [address] [place] [phone] Mar, Paroxysmal tachycardia I47.9 and Pain of left lower extremity M79.605 [place] [address] [facility] [place] [id number] [address] [place] [phone] Mar, FRANCIS (generalized anxiety dis order) F41.1 and Major depressive disorder in partial remission F32.4 [place] [address] [facility] [id number] [address] [place] [phone] Jan, [facility] [place] [address] [id number] [address] [place] [phone] Jan, [place] [address] [facility] [id number] [address] [place] [phone] Jan, [facility] [address] [facility] [place] [id number] [address] [place] [phone] Dec, Constipation, unspecified co nstipation type K59.00 [place] [address] [facility] [id number] [address] [place] [phone] Dec, [facility] [place] [address] [id number] [address] [place] [phone] Nov, [facility] [place] [address] [facility] [place] [id number] [address] [place] [phone] Nov, Major depressive disorder in partial remission F32.4 and FRANCIS (generalized anxiety disorder) F41.1 [facility] [address] [facility] [place] [id number] [address] [place] [phone] Oct, Abdominal pain R10.9 and Slo w transit constipation K59.01 [place] [address] [facility] [place] [place] [id number] [address] [place] [phone] Aug, Major depressive disorder in partial remission F32.4 ; FRANCIS (generalized anxiety disorder) F41.1 ; Conversion disorder (or hysterical neurosis, conversion type) F44.9 ; Dorsalgia, unspecified M54.9 and Long-term use of high-risk medication Z79.899 [place] [address] [facility] [place] [id number] [address] [place] [phone] Aug, [place] [address] [facility] [id number] [address] [place] [phone] Jul, Paroxysmal tachycardia I47.9 [place] [address] [facility] [id number] [address] [place] [phone] Jul, Paroxysmal tachycardia I47.9 [place] [address] [facility] [place] [id number] [address] [place] [phone] Jun, [facility] [place] [address] [facility] [place] [place] [id number] [address] [place] [phone] Jun, Major depressive disorder in partial remission F32.4 ; FRANCIS (generalized anxiety disorder) F41.1 and Conversion disorder (or hysterical neurosis, conversion type) F44.9 [facility] [address] [facility] [place] [id number] [address] [place] [phone] May, Pelvic pain R10.2 [facility] [address] [id number] [address] [place] [phone] 30 Apr, 2016 Gastroenteritis K52.9 [facility] [address] [id number] [address] [place] [phone] 17 Apr, 2016 Blood in urine R31.9 and Acu te cystitis with hematuria N30.01 [facility] [place] [address] [id number] [address] [place] [phone] Apr, Major depressive disorder in partial remission F32.4 ; FRANCIS (generalized anxiety disorder) F41.1 and Conversion disorder (or hysterical neurosis, conversion type) F44.9 [facility] [place] [address] [id number] [address] [place] [phone] Apr, [facility] [place] [address] [facility] [id number] [address] [place] [phone] Apr, Abnormal mammogram R92.8 [facility] [place] [address] [id number] [address] [place] [phone] Mar, [facility] [place] [address] [id number] [address] [place] [phone] Mar, Gastroenteritis K52.9 and Se izure disorder G40.909 [facility] [place] [address] [id number] [address] [place] [phone] Dec, [facility] [address] [id number] [address] [place] [phone] Dec, Other headache syndrome G44. 89 [facility] [place] [address] [id number] [address] [place] [phone] Dec, [facility] [place] [address] [facility] [id number] [address] [place] [phone] Dec, Thoracic disc herniation M51 .24 [facility] [place] [address] [id number] [address] [place] [phone] Dec, [facility] [place] [address] [facility] [id number] [address] [place] [phone] Nov, Major depressive disorder in partial remission F32.4 and FRANCIS (generalized anxiety disorder) F41.1 [facility] [place] [address] [id number] [address] [place] [phone] Nov, [facility] [place] [address] [id number] [address] [place] [phone] Nov, Dorsalgia, unspecified M54.9 [facility] [place] [address] [id number] [address] [place] [phone] Oct, [facility] [place] [address] [id number] [address] [place] [phone] September, [facility] [place] [address] [id number] [address] [place] [phone] Aug, [facility] [place] [address] [id number] [address] [place] [phone] Aug, Major depressive disorder in partial remission F32.4 and FRANCIS (generalized anxiety disorder) F41.1 [facility] [place] [address] [id number] [address] [place] [phone] Aug, [facility] [place] [address] [id number] [address] [place] [phone] Jul, Abnormal mammogram R92.8 [facility] [place] [address] [id number] [address] [place] [phone] Jul, [facility] [place] [address] [id number] [address] [place] [phone] Jul, [facility] [place] [address] [id number] [address] [place] [phone] Jul, [facility] [place] [address] [id number] [address] [place] [phone] Jul, [facility] [place] [address] [id number] [address] [place] [phone] Jul, [facility] [place] [address] [id number] [address] [place] [phone] Jul, [facility] [place] [address] [id number] [address] [place] [id number] Jun, Major depressive disorder in partial remission F32.4 and FRANCIS (generalized anxiety disorder) F41.1 [facility] [place] [address] [id number] [address] [place] [phone] Jun, [facility] [place] [address] [id number] [address] [place] [id number] May, [facility] [place] [address] [id number] [address] [place] [phone] Apr, [facility] [place] [address] [id number] [address] [place] [phone] Mar, Major depressive disorder, r ecurrent episode, moderate F33.1 ; PTSD (post-traumatic stress disorder) F43.10 and FRANCIS (generalized anxiety disorder) F41.1 [facility] [place] [address] [id number] [address] [place] [phone] Mar, [facility] [place] [address] [id number] [address] [place] [phone] Mar, [facility] [place] [address] [id number] [address] [place] [phone] Mar, [facility] [place] [address] [id number] [address] [place] [phone] Mar, [facility] [place] [address] [id number] [address] [place] [phone] 23 Jan, 2015 [facility] [place] [address] [id number] [address] [place] [phone] 15 Jan, 2015 [facility] [place] [address] [id number] [address] [place] [phone] 15 Jan, 2015 [facility], [place] [address] [facility] [id number] [address] [place] [id number] 14 Jan, 2015 Thoracic disc herniation 722 .11 [facility] [place] [address] [id number] [address] [place] [id number] Dec, [facility] [address] [id number] [address] [place] [id number] Dec, [facility] [address] [id number] [address] [place] [id number] Dec, [facility] [address] [id number] [address] [place] [id number] Nov, [facility] [address] [id number] [address] [place] [id number] Nov, Generalized anxiety disorder 300.02 ; Posttraumatic stress disorder 309.81 and Major depressive disorder, recurrent episode, moderate 296.32 [facility] [address] [id number] [address] [place] [id number] Nov, [facility] [address] [id number] [address] [place] [id number] Nov, [facility] [address] [id number] [address] [place] [id number] Oct, [facility] [address] [id number] [address] [place] [id number] Oct, [facility] [place] [address] [id number] [address] [place] [id number] Oct, [facility] [address] [id number] [address] [place] [id number] September, [facility] [address] [id number] [address] [place] [id number] September, [facility] [address] [id number] [address] [place] [id number] Aug, [facility] [address] [id number] [address] [place] [id number] Aug, [facility] [address] [id number] [address] [place] [id number] Jul, [facility] [address] [id number] [address] [place] [address], [place] [address] Jul, [facility] [address] [id number] [address] [place] [address], [place] [id number] Jul, [facility] [address] [id number] [address] [place] [address], [place] [id number] 17 Jul, 2014 [facility] [address] [id number] [address] [place] [address], [place] [address] Jul, [facility] [address] [id number] [address] [place] [address], [place] [address] Jul, [facility] [address] [id number] [address] [place] [address], [place] [id number] Jul, [facility] [address] [id number] [address] [place] [address], [place] [address] Jul, [facility] [address] [id number] [address] [place] [address], [place] [address] Jul, [facility] [address] [id number] [address] [place] [address], [place] [address] Jul, [facility] [address] [id number] [address] [place] [address], [place] [address] Jun, [facility] [address] [id number] [address] [place] [address], [place] [address] Jun, [facility] [address] [id number] [address] [place] [address], [place] [address] Jun, [facility] [address] [id number] [address] [place] [address], [place] [address] May, [facility] [address] [id number] [address] [place] [address], [place] [address] Apr, [facility] [address] [id number] [address] [place] [address], [place] [address] Apr, [facility] [address] [id number] [address] [place] [address], [place] [address] Apr, [facility] [address] [id number] [address] [place] [address], [place] [address] Apr, [facility] [address] [id number] [address] [place] [address], [place] [address] Apr, [facility] [address] [id number] [address] [place] [address], [place] [address] Apr, [facility] [address] [id number] [address] [place] [address], [place] [address] Apr, [facility] [address] [id number] [address] [place] [address], [place] [address] Apr, [facility] [address] [id number] [address] [place] [address], [place] [address] Mar, [facility] [address] [id number] [address] [place] [address], [place] [address] Mar, [facility] [address] [id number] [address] [place] [address], [place] [address] Mar, [facility] [address] [id number] [address] [place] [address], [place] [address] Mar, [facility] [address] [id number] [address] [place] [address], [place] [address] Mar, [facility] [address] [id number] [address] [place] [address], [place] [address] Mar, [facility] [address] [id number] [address] [place] [address], [place] [address] Mar, [facility] [address] [id number] [address] [place] [address], [place] [address] Mar, [facility] [address] [id number] [address] [place] [address], [place] [address] Mar, [facility] [address] [id number] [address] [place] [address], [place] [address] Mar, [facility] [address] [id number] [address] [place] [address], [place] [address] Mar, 2013 [facility] [address] [id number] [address] [place] [address], [place] [address] Mar, [facility] [address] [id number] [address] [place] [address], [place] [address] 14 Mar, 2014 [facility] [address] [id number] [address] [place] [address], [place] [address] Mar, 2013 [facility] [address] [id number] [address] [place] [address], [place] [address] Mar, [facility] [address] [id number] [address] [place] [address], [place] [address] Mar, 2013 [facility] [address] [id number] [address] [place] [address], [place] [address] Mar, 2013 [facility] [address] [id number] [address] [place] [address], [place] [address] 19 Sep, 2013 [facility] [address] [id number] [address] [place] [address], [place] [address] 19 Sep, 2013 [facility] [address] [id number] [address] [place] [address], [place] [address] 09 Sep, 2013 [facility] [address] [id number] [address] [place] [address], [place] [address] 09 Sep, 2013 [facility] [address] [id number] [address] [place] [address], [place] [address] 05 Sep, 2013 [facility] [address] [id number] [address] [place] [address], [place] [address] 05 Sep, 2013 [facility] [address] [id number] [address] [place] [address], [place] [address] 05 Sep, 2013 [facility] [address] [id number] [address] [place] [address], [place] [address] 05 Sep, 2013 [facility] [address] [id number] [address] [place] [address], [place] [address] Jan, [facility] [address] [id number] [address] [place] [address], [place] [address] Jan, [facility] [address] [id number] [address] [place] [address], [place] [address] Jan, [facility] [address] [id number] [address] [place] [address], [place] [address] Jan, [facility] [address] [id number] [address] [place] [address], [place] [address] Jan, [facility] [address] [id number] [address] [place] [address], [place] [address] Dec, [facility] [address] [id number] [address] [place] [address], [place] [address] Dec, [facility] [address] [id number] [address] [place] [address], [place] [address] Dec, [facility] [address] [id number] [address] [place] [address], [place] [address] Dec, [facility] [address] [id number] [address] [place] [address], [place] [address] Dec, [facility] [address] [id number] [address] [place] [address], [place] [address] Dec, [facility] [address] [place] [id number] Dec, [facility] [address] [place] [id number] Dec, [facility] [address] [id number] [address] [place] [address], [place] [address] Dec, [facility] [address] [id number] [address] [place] [address], [place] [address] Dec, [facility] [address] [id number] [address] [place] [address], [place] [address] Dec, [facility] [address] [id number] [address] [place] [address], [place] [address] Dec, [facility] [address] [id number] [facility] [address] Nov, [facility] [address] [id number] [facility] [address] Nov, [facility] [address] [id number] [facility] [address] Nov, [facility] [address] [id number] [address] [place] [address], [place] [address] Nov, [facility] [address] [id number] [address] [place] [address], [place] [address] Nov, [facility] [address] [id number] [address] [place] [address], [place] [address] Nov, [facility] [address] [id number] [address] [place] [address], [place] [address] Nov, [facility] [address] [id number] [address] [place] [address], [place] [address] Nov, [facility] [address] [id number] [address] [place] [address], [place] [address] Nov, [facility] [address] [id number] [address] [place] [address], [place] [address] Nov, [facility] [address] [id number] [address] [place] [address], [place] [address] Nov, [facility] [address] [id number] [address] [place] [address], [place] [address] Nov, [facility] [address] [id number] [address] [place] [address], [place] [address] Nov, [facility] [address] [id number] [address] [place] [address], [place] [address] Oct, [facility] [address] [id number] [address] [place] [address], [place] [address] Oct, [facility] [address] [id number] [facility] [address] Oct, [facility] [address] [id number] [address] [place] [address], [place] [address] Oct, [facility] [address] [id number] [address] [place] [address], [place] [address] Oct, [facility] [address] [id number] [address] [place] [address], [place] [address] Oct, [facility] [address] [id number] [address] [place] [address], [place] [address] Oct, [facility] [address] [id number] [address] [place] [address], [place] [address] Oct, [facility] [address] [id number] [address] [place] [address], [place] [address] Oct, [facility] [address] [id number] [address] [place] [address], [place] [address] Oct, [facility] [address] [id number] [address] [place] [address], [place] [address] Oct, [facility] [address] [id number] [address] [place] [address], [place] [address] Oct, [facility] [address] [id number] [address] [place] [address], [place] [address] September, [facility] [address] [id number] [address] [place] [address], [place] [address] September, [facility] [address] [id number] [address] [place] [address], [place] [address] September, [facility] [address] [id number] [address] [place] [address], [place] [address] September, [facility] [address] [id number] [address] [place] [address], [place] [address] Aug, [facility] [address] [id number] [address] [place] [address], [place] [address] Aug, [facility] [address] [id number] [facility] [address] Aug, [facility] [address] [id number] [address] [place] [address], [place] [address] Aug, [facility] [address] [id number] [address] [place] [address], [place] [address] Aug, [facility] [address] [id number] [address] [place] [address], [place] [address] Aug, [facility] [address] [id number] [address] [place] [address], [place] [address] Aug, [facility] [address] [id number] [address] [place] [address], [place] [address] Jul, [facility] [address] [id number] [address] [place] [address], [place] [address] Jul, [facility] [address] [id number] [address] [place] [address], [place] [address] Jul, [facility] [address] [id number] [address] [place] [address], [place] [address] Jul, [facility] [address] [id number] [address] [place] [address], [place] [address] Jul, [facility] [address] [id number] [address] [place] [address], [place] [address] Jul, [facility] [address] [id number] [address] [place] [address], [place] [address] Jul, [facility] [address] [id number] [address] [place] [address], [place] [address] Jul, [facility] [address] [id number] [address] [place] [address], [place] [address] Jul, [facility] [address] [id number] [address] [place] [address], [place] [address] Jul, [facility] [address] [id number] [address] [place] [address], [place] [address] 18 Jul, 2013 [facility] [address] [id number] [address] [place] [address], [place] [address] 18 Jul, 2013 [facility] [address] [id number] [address] [place] [address], [place] [address] 14 Jul, 2013 [facility] [address] [id number] [address] [place] [address], [place] [address] 14 Jul, 2013 [facility] [address] [id number] [address] [place] [address], [place] [address] 11 Jul, 2013 [facility] [address] [id number] [address] [place] [address], [place] [address] Jul, [facility] [address] [id number] [address] [place] [address], [place] [address] Jul, [facility] [address] [id number] [address] [place] [address], [place] [address] Jul, [facility] [address] [id number] [address] [place] [address], [place] [address] Jun, [facility] [address] [id number] [address] [place] [address], [place] [address] 31 Jun, 2013 [facility] [address] [id number] [address] [place] [address], [place] [address] 15 Jun, 2013 [facility] [address] [id number] [address] [place] [address], [place] [address] 15 Jun, 2013 [facility] [address] [id number] [address] [place] [address], [place] [address] 14 Jun, 2013 [facility] [address] [id number] [address] [place] [address], [place] [address] 14 Jun, 2013 [facility] [address] [id number] [address] [place] [address], [place] [address] 14 Jun, 2013 [facility] [address] [id number] [address] [place] [address], [place] [address] 14 Jun, 2013 [facility] [address] [id number] [address] [place] [address], [place] [address] 14 Jun, 2013 [facility] [address] [id number] [address] [place] [address], [place] [address] 14 Jun, 2013 [facility] [address] [id number] [address] [place] [address], [place] [address] 27 May, 2013 [facility] [address] [id number] [address] [place] [address], [place] [address] 27 May, 2013 [facility] [address] [id number] [address] [place] [address], [place] [address] 26 May, 2013 [facility] [address] [id number] [address] [place] [address], [place] [id number] 19 May, 2013 [facility] [address] [id number] [address] [place] [address], [place] [id number] 19 May, 2013 [facility] [address] [id number] [address] [place] [address], [place] [address] 16 May, 2013 [facility] [address] [id number] [address] [place] [address], [place] [address] 16 May, 2013 [facility] [address] [id number] [address] [place] [address], [place] [id number] 16 May, 2013 [facility] [address] [id number] [address] [place] [address], [place] [id number] 16 May, 2013 [facility] [address] [id number] [address] [place] [address], [place] [id number] 13 May, 2013 [facility] [address] [id number] [address] [place] [address], [place] [id number] 13 May, 2013 [facility] [address] [id number] [address] [place] [address], [place] [id number] 11 May, 2013 [facility] [address] [id number] [address] [place] [address], [place] [id number] 20 Apr, 2013 [facility] [address] [id number] [address] [place] [id number] Apr, [facility] [address] [id number] [address] [place] [address], [place] [id number] 18 Apr, 2013 [facility] [address] [id number] [address] [place] [id number] Apr, [facility] [address] [id number] [address] [place] [id number] Apr, [facility] [address] [id number] [address] [place] [id number] 08 Apr, 2013 [facility] [address] [id number] [address] [place] [address], [place] [id number] 08 Apr, 2013 [facility] [address] [id number] [address] [place] [id number] Apr, [facility] [address] [id number] [address] [place] [id number] Apr, [facility] [address] [id number] [address] [place] [id number] Apr, [facility] [address] [id number] [address] [place] [id number] Apr, [facility] [address] [id number] [address] [place] [id number] Mar, [facility] [address] [id number] [address] [place] [id number] Mar, [facility] [address] [id number] [address] [place] [id number] Mar, [facility] [address] [id number] [address] [place] [id number] Mar, [facility] [address] [id number] [address] [place] [id number] Mar, [facility] [address] [id number] [address] [place] [id number] Mar, [facility] [address] [id number] [address] [place] [address], [place] [id number] Mar, [facility] [address] [id number] [address] [place] [address], [place] [id number] Mar, [facility] [address] [id number] [address] [place] [address], [place] [id number] Mar, [facility] [address] [id number] [address] [place] [address], [place] [id number] Mar, [facility] [address] [id number] [address] [place] [address], [place] [id number] 15 Mar, 2013 [facility] [address] [id number] [address] [place] [address], [place] [id number] Mar, [facility] [address] [id number] [address] [place] [address], [place] [id number] 30 Jan, 2013 [facility] [address] [id number] [address] [place] [address], [place] [id number] Jan, [facility] [address] [id number] [address] [place] [address], [place] [id number] 20 Jan, 2013 [facility] [address] [id number] [address] [place] [address], [place] [id number] Jan, [facility] [address] [id number] [address] [place] [address], [place] [id number] Dec, [facility] [address] [id number] [address] [place] [address], [place] [id number] Dec, [facility] [address] [id number] [address] [place] [address], [place] [id number] Dec, [facility] [address] [id number] [address] [place] [address], [place] [id number] Dec, [facility] [address] [id number] [address] [place] [address], [place] [id number] Dec, [facility] [address] [id number] [address] [place] [address], [place] [id number] Dec, [facility] [address] [id number] [address] [place] [address], [place] [id number] Dec, [facility] [address] [id number] [address] [place] [address], [place] [id number] Dec, [facility] [address] [id number] [address] [place] [address], [place] [id number] Dec, [facility] [address] [id number] [address] [place] [address], [place] [id number] Nov, [facility] [address] [id number] [address] [place] [address], [place] [id number] Nov, [facility] [address] [id number] [address] [place] [address], [place] [id number] Nov, [facility] [address] [id number] [address] [place] [address], [place] [id number] Nov, [facility] [address] [id number] [address] [place] [address], [place] [id number] Nov, [facility] [address] [id number] [address] [place] [address], [place] [id number] Nov, [facility] [address] [id number] [address] [place] [address], [place] [id number] Nov, [facility] [address] [id number] [address] [place] [address], [place] [address] Nov, [facility] [address] [id number] [address] [place] [address], [place] [address] Oct, [facility] [address] [id number] [address] [place] [address], [place] [address] Oct, [facility] [address] [id number] [address] [place] [address], [place] [address] Oct, [facility] [address] [id number] [address] [place] [address], [place] [address] Oct, [facility] [address] [id number] [address] [place] [address], [place] [address] Oct, [facility] [address] [id number] [address] [place] [address], [place] [address] 21 Oct, 2012 [facility] [address] [id number] [address] [place] [address], [place] [address] 20 Oct, 2012 [facility] [address] [id number] [address] [place] [address], [place] [id number] 20 Oct, 2012 [facility] [address] [id number] [address] [place] [address], [place] [id number] 19 Oct, 2012 [facility] [address] [id number] [address] [place] [address], [place] [id number] 18 Oct, 2012 [facility] [address] [id number] [address] [place] [address], [place] [address] 17 Oct, 2012 [facility] [address] [id number] [address] [place] [address], [place] [id number] 14 Oct, 2012 [facility] [address] [id number] [address] [place] [address], [place] [id number] 07 Oct, 2012 [facility] [address] [id number] [address] [place] [address], [place] [address] 30 Sep, 2012 [facility] [address] [id number] [address] [place] [address], [place] [address] September, [facility] [address] [id number] [address] [place] [address], [place] [address] 15 Sep, 2012 [facility] [address] [id number] [address] [place] [address], [place] [address] 25 Aug, 2012 [facility] [address] [id number] [address] [place] [address], [place] [id number] 24 Aug, 2012 [facility] [address] [id number] [address] [place] [address], [place] [id number] 18 Aug, 2012 [facility] [address] [id number] [address] [place] [address], [place] [id number] 18 Aug, 2012 [facility] [address] [id number] [address] [place] [address], [place] [id number] 18 Aug, 2012 [facility] [address] [id number] [address] [place] [address], [place] [address] Aug, [facility] [address] [id number] [address] [place] [address], [place] [address] Aug, [facility] [address] [id number] [address] [place] [address], [place] [id number] Jul, [facility] [address] [id number] [address] [place] [address], [place] [address] Jul, [facility] [address] [id number] [address] [place] [address], [place] [address] Jul, [facility] [address] [id number] [address] [place] [address], [place] [address] Jul, [facility] [address] [id number] [address] [place] [address], [place] [address] Jul, [facility] [address] [id number] [address] [place] [address], [place] [address] Jul, [facility] [address] [id number] [address] [place] [address], [place] [address] Jul, [facility] [address] [id number] [address] [place] [address], [place] [address] Jul, [facility] [address] [id number] [address] [place] [address], [place] [address] Jul, [facility] [address] [id number] [address] [place] [address], [place] [address] Jul, [facility] [address] [id number] [address] [place] [address], [place] [address] 11 Jul, 2012 [facility] [address] [id number] [address] [place] [address], [place] [id number] 06 Jul, 2012 [facility] [address] [id number] [address] [place] [address] [place] [id number] Jul, [facility] [address] [id number] [address] [place] [address], [place] [address] Jun, [facility] [address] [id number] [address] [place] [address], [place] [address] Jun, [facility] [address] [id number] [address] [place] [address], [place] [address] Jun, [facility] [address] [id number] [address] [place] [address], [place] [id number] 17 Jun, 2012 [facility] [address] [id number] [address] [place] [address], [place] [id number] 15 Jun, 2012 [facility] [address] [id number] [address] [place] [address], [place] [id number] Jun, [facility] [address] [id number] [address] [place] [address], [place] [address] Jun, [facility] [address] [id number] [address] [place] [address], [place] [address] May, [facility] [address] [id number] [address] [place] [address], [place] [address] May, [facility] [address] [id number] [address] [place] [address], [place] [address] May, [facility] [address] [id number] [address] [place] [address], [place] [address] May, [facility] [address] [id number] [address] [place] [address], [place] [id number] May, [facility] [address] [id number] [address] [place] [address], [place] [address] May, [facility] [address] [id number] [address] [place] [address], [place] [address] May, [facility] [address] [id number] [address] [place] [address], [place] [address] May, [facility] [address] [id number] [address] [place] [address], [place] [address] May, [facility] [address] [id number] [address] [place] [address], [place] [address] May, [facility] [address] [id number] [address] [place] [address], [place] [address] Apr, [facility] [address] [id number] [address] [place] [address], [place] [address] Apr, [facility] [address] [id number] [address] [place] [address], [place] [address] Apr, [facility] [address] [id number] [address] [place] [address], [place] [address] Apr, [facility] [address] [id number] [address] [place] [address], [place] [address] Apr, [facility] [address] [id number] [address] [place] [address], [place] [address] Apr, [facility] [address] [id number] [address] [place] [address], [place] [id number] Apr, [facility] [address] [id number] [address] [place] [address], [place] [address] Apr, [facility] [address] [id number] [address] [place] [address], [place] [address] Apr, [facility] [address] [id number] [address] [place] [address], [place] [address] Apr, [facility] [address] [id number] [address] [place] [address], [place] [address] Apr, [facility] [address] [id number] [address] [place] [address], [place] [address] Apr, [facility] [address] [id number] [address] [place] [address], [place] [address] Mar, [facility] [address] [id number] [address] [place] [address], [place] [address] Mar, 2011 [facility] [address] [id number] [address] [place] [address], [place] [id number] 30 Mar, 2011 [facility] [address] [id number] [address] [place] [id number] Mar, 2011 [facility] [address] [id number] [address] [place] [id number] Mar, 2011 [facility] [address] [id number] [address] [place] [id number] Mar, 2011 [facility] [address] [id number] [address] [place] [address], [place] [address] Mar, 2011 [facility] [address] [id number] [address] [place] [id number] Mar, 2011 [facility] [address] [id number] [address] [place] [id number] Mar, 2011 [facility] [address] [id number] [address] [place] [id number] Mar, [facility] [address] [id number] [address] [place] [id number] Mar, [facility] [address] [id number] [address] [place] [id number] Mar, [facility] [address] [id number] [address] [place] [id number] Mar, [facility] [address] [id number] [address] [place] [id number] Mar, [facility] [address] [id number] [address] [place] [address], [place] [address] Mar, [facility] [address] [id number] [address] [place] [id number] Mar, [facility] [address] [id number] [address] [place] [id number] Jan, [facility] [address] [id number] [address] [place] [address], [place] [id number] 24 Sep, 2011 [facility] [address] [id number] [address] [place] [address], [place] [id number] 22 Sep, 2011 [facility] [address] [id number] [address] [place] [address], [place] [id number] 22 Jan, 2011 [facility] [address] [id number] [address] [place] [address], [place] [id number] 21 Jan, 2011 [facility] [address] [id number] [address] [place] [address], [place] [id number] 18 Sep, 2011 [facility] [address] [id number] [address] [place] [address], [place] [id number] 14 Jan, 2011 [facility] [address] [id number] [address] [place] [address], [place] [id number] 07 Jan, 2012 [facility] [address] [id number] [address] [place] [address], [place] [id number] 15 Dec, 2011 [facility] [address] [id number] [address] [place] [address], [place] [id number] 10 Dec, 2011 [facility] [address] [id number] [address] [place] [address], [place] [id number] 09 Dec, 2011 [facility] [address] [id number] [address] [place] [address], [place] [id number] 08 Dec, 2011 [facility] [address] [id number] [address] [place] [address], [place] [address] Dec, [facility] [address] [id number] [address] [place] [address], [place] [address] Dec, [facility] [address] [id number] [address] [place] [address], [place] [id number] Dec, [facility] [address] [id number] [address] [place] [address], [place] [id number] Nov, [facility] [address] [id number] [address] [place] [address], [place] [address] Oct, [facility] [address] [id number] [address] [place] [address], [place] [id number] 05 Aug, 2011 [facility] [address] [id number] [address] [place] [address], [place] [id number] 22 Jul, 2011 [facility] [address] [id number] [address] [place] [address], [place] [id number] 19 Jul, 2011 [facility] [address] [id number] [address] [place] [address], [place] [id number] 16 Jul, 2011 [facility] [address] [id number] [address] [place] [address], [place] [address] 14 Jul, 2011 [facility] [address] [id number] [address] [place] [address], [place] [id number] 07 Jul, 2011 [facility] [address] [id number] [address] [place] [address], [place] [id number] 02 Jul, 2011 [facility] [address] [id number] [address] [place] [address], [place] [id number] 21 Jul, 2011 [facility] [address] [id number] [address] [place] [address], [place] [id number] 15 Jul, 2011 [facility] [address] [id number] [address] [place] [address], [place] [id number] 13 Jul, 2011 [facility] [address] [id number] [address] [place] [address], [place] [id number] 03 Jul, 2011 [facility] [address] [id number] [address] [place] [address], [place] [id number] 02 Jul, 2011 [facility] [address] [id number] [address] [place] [address], [place] [id number] 24 Jun, 2011 [facility] [address] [id number] [address] [place] [address], [place] [id number] 24 Jun, 2011 [facility] [address] [id number] [address] [place] [address], [place] [id number] 13 Jun, 2011 [facility] [address] [id number] [address] [place] [address], [place] [address] 11 Jun, 2011 [facility] [address] [id number] [address] [place] [address], [place] [address] Jun, [facility] [address] [id number] [address] [place] [address], [place] [address] Jun, [facility] [address] [id number] [address] [place] [address], [place] [id number] Jun, [facility] [address] [id number] [address] [place] [address], [place] [address] May, [facility] [address] [id number] [address] [place] [address], [place] [address] May, [facility] [address] [id number] [address] [place] [address], [place] [address] May, [facility] [address] [id number] [address] [place] [address], [place] [address] May, [facility] [address] [id number] [address] [place] [address], [place] [address] 14 May, 2011 [facility] [address] [id number] [address] [place] [address], [place] [address] May, [facility] [address] [id number] [address] [place] [address], [place] [address] May, [facility] [address] [id number] [address] [place] [address], [place] [address] May, [facility] [address] [id number] [address] [place] [address], [place] [address] May, [facility] [address] [id number] [address] [place] [address], [place] [address] May, [facility] [address] [id number] [address] [place] [address], [place] [id number] 15 Apr, 2011 [facility] [address] [id number] [address] [place] [address], [place] [id number] 15 Apr, 2011 [facility] [place] [address] [facility] [place] [id number] [address] [place] [id number] Apr, [facility] [place] [address] [facility] [place] [id number] [address] [place] [id number] Apr, [facility] [place] [address] [facility] [place] [id number] [address] [place] [id number] Mar, [facility] [place] [address] [facility] [place] [id number] [address] [place] [id number] Mar, [facility] [place] [address] [facility] [place] [id number] [address] [place] [id number] Mar, [facility] [place] [address] [facility] [place] [id number] [address] [place] [id number] Mar, IMMUNIZATIONS No Known Immunizations SOCIAL HISTORY [...]
--- OUTSIDE RECORDS SUMMARY | 2020-01-03 17:54 | XMS REPORT ---
Author Author Pattie VIEIRA Organization [facility] Address [address] [place] [address] Care Team Providers Care Hand Folder Name Role Phone REYNALDO VIEIRA Unavailable PROBLEMS Type Condition ICD9-CM Code YES54-SY Code Onset Dates Condition S tatus SNOMED Code Problem FRANICS (generalized anxiety disorder) F41.1 Active 54229474 Problem Thoracic disc herniation M51.24 Activ e 215524212 Problem Major depressive disorder in partial remission F32 .4 Active 12807010 Problem Seizure disorder G40.909 Active 128 903715 Problem Conversion disorder (or hysterical neurosis, conversion ty pe) F44.9 Active 82965036 Problem Constipation, unspecified constipation type K59.00 Active 58109791 Problem Mild episode of recurrent major depressive disorder F33.0 Active 651344531 Problem Restless leg syndrome G25.81 Active 94392877 Problem Nonadherence to medication Z91.14 Act vivian 344614134 Problem Slow transit constipation K59.01 Acti ve 41253814 Problem Atrophic vaginitis N95.2 Active 5 1498690 Problem Paroxysmal tachycardia I47.9 Active 06846594 Problem Other chronic pain G89.29 Active 8 0543562 Problem Mild intermittent asthma without complication J45. 20 Active 342155925 Problem Obesity (BMI 30.0-34.9) E66.9 Active 664425857240270 Problem High blood pressure I10 Active 43602274 ALLERGIES No Information ENCOUNTERS Encounter Location Date Diagnosis [facility] [address] [facility] [id number] [address] [place] [phone] Nov, [facility] [address] [facility] [id number] [address] [place] [phone] Nov, [address] [id number] [id number] Oct, Breast cancer screening Z12.[id number] [place] [phone] 08 Oct, 2019 Breast cancer screening Z12. 39 [facility] [address] [id number] [address] [place] [phone] Oct, [facility] [address] [id number] [address] [place] [phone] Oct, [facility] [address] [facility] [id number] [address] [place] [phone] September, [facility] [address] [id number] [address] [place] [address] September, [facility] [address] [facility] [id number] [address] [place] [address] September, Well woman exam with routine gynecological exam Z01.419 and Atrophic vaginitis N95.2 [facility] [address] [facility] [id number] [address] [place] [address] September, Major depressive disorder in partial remission F32.4 ; FRANCIS (generalized anxiety disorder) F41.1 ; Restless leg syndrome G25.81 and Nonadherence to medication Z91.14 [facility] [address] [facility] [id number] [address] [place] [phone] September, [facility] [address] [facility] [id number] [address] [place] [address] Aug, [facility] [address] [id number] [address] [place] [id number] Aug, Dental examination Z01.20 [facility] [address] [id number] [address] [place] [phone] Aug, Dental examination Z01.20 an d Caries K02.9 [facility] [address] [id number] [address] [place] [phone] Aug, [facility] [address] [facility] [id number] [address] [place] [phone] Aug, [facility] [address] [id number] [address] [place] [address] 11 Aug, 2019 Other chronic pain G89.29 an d Back muscle spasm M62.830 [facility] [address] [id number] [address] [place] [phone] 07 Aug, 2019 [facility] [address] [facility] [id number] [address] [place] [phone] Aug, Major depressive disorder in partial remission F32.4 ; FRANCIS (generalized anxiety disorder) F41.1 ; Restless leg syndrome G25.81 and Nonadherence to medication Z91.14 [facility] [address] [id number] [address] [place] [phone] Aug, [facility] [address] [id number] [address] [place] [phone] Jul, [facility] [address] [facility] [id number] [address] [place] [phone] Jul, [facility] [address] [id number] [address] [place] [phone] Jul, Major depressive disorder in partial remission F32.4 ; FRANCIS (generalized anxiety disorder) F41.1 ; Restless leg syndrome G25.81 and High blood pressure I10 [facility] [address] [id number] [address] [place] [phone] 17 Jul, 2019 [facility] [address] [facility] [id number] [address] [place] [phone] Jul, [facility] [address] [id number] [address] [place] [phone] Jun, [facility] [address] [facility] [id number] [address] [place] [phone] May, [facility] [address] [id number] [address] [place] [phone] Apr, [facility] [address] [facility] [id number] [address] [place] [phone] Apr, [facility] [address] [id number] [address] [place] [phone] Mar, [facility] [address] [id number] [address] [place] [phone] Mar, Major depressive disorder in partial remission F32.4 ; FRANCIS (generalized anxiety disorder) F41.1 and Restless leg syndrome G25.81 [facility] [address] [id number] [address] [place] [address] Mar, Obesity (BMI 30.0-34.9) E66. 9 [facility] [address] [id number] [address] [place] [phone] Jan, [facility] [address] [id number] [address] [place] [phone] Jan, Burn T30.0 [facility] [address] [id number] [address] [place] [phone] Dec, [facility] [address] [id number] [address] [place] [phone] Nov, [facility] [address] [id number] [address] [place] [address] Nov, [facility] [address] [id number] [address] [place] [id number] Nov, Dental examination Z01.20 [facility] [address] [id number] [address] [place] [phone] September, [facility] [address] [id number] [address] [place] [address] [phone] September, Decay, teeth K02.9 and Denta l examination Z01.20 [facility] [address] [id number] [address] [place] [id number] September, Dental examination Z01.20 [facility] [address] [id number] [address] [place] [phone] September, FRANCIS (generalized anxiety dis order) F41.1 ; Major depressive disorder in partial remission F32.4 and Restless leg syndrome G25.81 [facility] [address] [facility] [id number] [address] [place] [phone] Aug, [facility] [address] [facility] [id number] [address] [place] [phone] Jul, [facility] [address] [place] [id number] [address] [place] [phone] Jul, Encounter to discuss test re sults Z71.2 [facility] [address] [facility] [id number] [address] [place] [phone] Jul, Pelvic pain R10.2 ; Screenin g for breast cancer Z12.31 and Obesity (BMI 30.0-34.9) E66.9 [facility] [address] [place] [id number] [address] [place] [phone] Jul, Mild intermittent asthma wit hout complication J45.20 [facility] [address] [facility] [id number] [address] [place] [phone] Jul, Major depressive disorder in partial remission F32.4 and FRANCIS (generalized anxiety disorder) F41.1 [facility] [address] [facility] [id number] [address] [place] [id number] Jul, [facility] [address] [place] [id number] [address] [place] [phone] Jun, [facility] [address] [place] [id number] [address] [place] [phone] May, Major depressive disorder in partial remission F32.4 ; FRANCIS (generalized anxiety disorder) F41.1 and Restless leg syndrome G25.81 [facility] [address] [facility] [id number] [address] [place] [phone] Apr, [facility] [address] [facility] [id number] [address] [place] [phone] Mar, [facility] [address] [id number] [address] [place] [phone] 21 Jan, 2018 Pain in thoracic spine M54.6 and Other chronic pain G89.29 [facility] [address] [id number] [address] [place] [phone] 14 Jan, 2018 [facility] [address] [id number] [address] [place] [phone] 11 Jan, 2018 Mild episode of recurrent ma saray depressive disorder F33.0 ; FRANCIS (generalized anxiety disorder) F41.1 and Restless leg syndrome G25.81 [facility] [address] [id number] [address] [place] [phone] Dec, [facility] [address] [id number] [address] [place] [phone] Dec, Hospital discharge follow-up Z09 [facility] [address] [id number] [address] [place] [phone] Nov, [facility] [address] [id number] [address] [place] [phone] Nov, [facility] [address] [id number] [address] [place] [phone] September, [facility] [address] [id number] [address] [place] [phone] September, [facility] [address] [id number] [address] [place] [phone] September, Major depressive disorder in partial remission F32.4 ; FRANCIS (generalized anxiety disorder) F41.1 and Restless leg syndrome G25.81 [facility] [address] [id number] [address] [place] [phone] September, [facility] [address] [id number] [address] [place] [phone] Jul, [facility] [address] [id number] [address] [place] [phone] Jul, Dorsalgia, unspecified M54.9 [place] [address] [id number] [address] [place] [phone] Jul, Mild episode of recurrent ma saray depressive disorder F33.0 and FRANCIS (generalized anxiety disorder) F41.1 [facility] [address] [id number] [address] [place] [phone] May, [facility] [address] [id number] [address] [place] [phone] May, Dysuria R30.0 and Acute cyst itis with hematuria N30.01 [facility] [address] [id number] [address] [place] [phone] Apr, [place] [address] [facility] [id number] [address] [place] [phone] Apr, Major depressive disorder in partial remission F32.4 and FRANCIS (generalized anxiety disorder) F41.1 [place] [address] [id number] [address] [place] [address] Mar, Paroxysmal tachycardia I47.9 [facility] [address] [id number] [address] [place] [address] Mar, Paroxysmal tachycardia I47.9 and Pain of left lower extremity M79.605 [place] [address] [id number] [address] [place] [address] Mar, FRANCIS (generalized anxiety dis order) F41.1 and Major depressive disorder in partial remission F32.4 [facility] [address] [id number] [address] [place] [address] Jan, [facility] [address] [id number] [address] [place] [phone] Jan, [place] [address] [facility] [id number] [address] [place] [phone] Jan, [facility] [address] [id number] [address] [place] [phone] Dec, Constipation, unspecified co nstipation type K59.00 [facility] [address] [id number] [address] [place] [phone] Dec, [facility] [address] [id number] [address] [place] [phone] Nov, [facility] [address] [facility] [id number] [address] [place] [phone] Nov, Major depressive disorder in partial remission F32.4 and FRANCIS (generalized anxiety disorder) F41.1 [facility] [address] [id number] [address] [place] [phone] Oct, Abdominal pain R10.9 and Slo w transit constipation K59.01 [place] [address] [facility] [id number] [address] [place] [id number] Aug, Major depressive disorder in partial remission F32.4 ; FRANCIS (generalized anxiety disorder) F41.1 ; Conversion disorder (or hysterical neurosis, conversion type) F44.9 ; Dorsalgia, unspecified M54.9 and Long-term use of high-risk medication Z79.899 [place] [address] [facility] [id number] [address] [place] [phone] Aug, [place] [address] [facility] [id number] [address] [place] [phone] Jul, Paroxysmal tachycardia I47.9 [place] [address] [facility] [id number] [address] [place] [address] Jul, Paroxysmal tachycardia I47.9 [facility] [address] [id number] [address] [place] [address] Jun, [place] [address] [facility] [id number] [address] [place] [phone] Jun, Major depressive disorder in partial remission F32.4 ; FRANCIS (generalized anxiety disorder) F41.1 and Conversion disorder (or hysterical neurosis, conversion type) F44.9 [facility] [address] [facility] [id number] [address] [place] [phone] May, Pelvic pain R10.2 [facility] [address] [facility] [id number] [address] [place] [phone] Apr, Gastroenteritis K52.9 [facility] [address] [facility] [id number] [address] [place] [address] Apr, Blood in urine R31.9 and Acu te cystitis with hematuria N30.01 [facility] [address] [facility] [id number] [address] [place] [address] Apr, Major depressive disorder in partial remission F32.4 ; FRANCIS (generalized anxiety disorder) F41.1 and Conversion disorder (or hysterical neurosis, conversion type) F44.9 [facility] [address] [place] [id number] [address] [place] [address] Apr, [place] [address] [address] Apr, Abnormal mammogram R92.8 [facility] [address] [facility] [id number] [place] [address] Mar, [place] [address] [place] [id number] [place] [address] Mar, Gastroenteritis K52.9 and Se izure disorder G40.909 [facility] [address] [place] [id number] [address] [place] [address] Dec, [facility] [address] [facility] [id number] [address] [place] [phone] Dec, Other headache syndrome G44. 89 [facility] [address] [place] [id number] [address] [place] [phone] Dec, [place] [address] [place] [id number] [place] [address] Dec, Thoracic disc herniation M51 .24 [facility] [address] [place] [id number] [address] [place] [phone] Dec, [facility] [address] [id number] [address] [place] [address] Nov, Major depressive disorder in partial remission F32.4 and FRANCIS (generalized anxiety disorder) F41.1 [facility] [address] [id number] [address] [place] [address], [place] [address] Nov, [facility] [address] [id number] [address] [place] [address] Nov, Dorsalgia, unspecified M54.9 [facility] [address] [id number] [address] [place] [address], [place] [address] Oct, [facility] [address] [id number] [address] [place] [address], [place] [address] September, [facility] [address] [id number] [address] [place] [phone] Aug, [facility] [address] [id number] [address] [place] [address] Aug, Major depressive disorder in partial remission F32.4 and FRANCIS (generalized anxiety disorder) F41.1 [facility] [address] [id number] [address] [place] [address] Aug, [facility] [address] [id number] [address] [place] [address] Jul, Abnormal mammogram R92.8 [facility] [address] [id number] [address] [place] [phone] Jul, [facility] [address] [id number] [address] [place] [phone] Jul, [facility] [address] [id number] [address] [place] [phone] 14 Jul, 2015 [facility] [address] [id number] [address] [place] [phone] Jul, [facility] [address] [id number] [address] [place] [address] Jul, [facility] [address] [id number] [address] [place] [address] Jul, [facility] [address] [id number] [address] [place] [address] Jun, Major depressive disorder in partial remission F32.4 and FRANCIS (generalized anxiety disorder) F41.1 [facility] [address] [id number] [address] [place] [address] Jun, [facility] [address] [id number] [address] [place] [address] May, [facility] [address] [id number] [address] [place] [address] Apr, [facility] [address] [id number] [address] [place] [address] Mar, Major depressive disorder, r ecurrent episode, moderate F33.1 ; PTSD (post-traumatic stress disorder) F43.10 and FRANCIS (generalized anxiety disorder) F41.1 [facility] [address] [id number] [address] [place] [phone] Mar, [facility] [address] [id number] [address] [place] [phone] Mar, [facility] [address] [id number] [address] [place] [phone] Mar, [facility] [address] [id number] [address] [place] [phone] Mar, [facility] [address] [id number] [address] [place] [address] Jan, [facility] [address] [id number] [address] [place] [phone] Jan, [facility] [address] [id number] [address] [place] [address] Jan, [facility] [address] [id number] [address] [place] [address] Jan, Thoracic disc herniation 722 .11 [facility] [address] [id number] [address] [place] [phone] Dec, [facility] [address] [id number] [address] [place] [address] Dec, [facility] [address] [id number] [address] [place] [address] Dec, [facility] [address] [id number] [address] [place] [address] Nov, [facility] [address] [id number] [address] [place] [address] Nov, Generalized anxiety disorder 300.02 ; Posttraumatic stress disorder 309.81 and Major depressive disorder, recurrent episode, moderate 296.32 [facility] [address] [id number] [address] [place] [address] Nov, [facility] [address] [id number] [address] [place] [address] Nov, [facility] [address] [id number] [address] [place] [phone] Oct, [facility] [address] [id number] [address] [place] [address] Oct, [facility] [address] [id number] [address] [place] [id number] Oct, [facility] [address] [id number] [address] [place] [id number] September, [facility] [address] [id number] [address] [place] [id number] September, [facility] [address] [id number] [address] [place] [id number] Aug, [facility] [address] [id number] [address] [place] [id number] Aug, [facility] [address] [id number] [address] [place] [address], [place] [id number] 25 Jul, 2014 [facility] [address] [id number] [address] [place] [address], [place] [address] Jul, [facility] [address] [id number] [address] [place] [address], [place] [id number] 17 Jul, 2014 [facility] [address] [id number] [address] [place] [address], [place] [id number] 17 Jul, 2014 [facility] [address] [id number] [address] [place] [address], [place] [id number] 16 Jul, 2014 [facility] [address] [id number] [address] [place] [address], [place] [id number] 16 Jul, 2014 [facility] [address] [id number] [address] [place] [address], [place] [id number] 19 Jul, 2014 [facility] [address] [id number] [address] [place] [address], [place] [id number] Jul, [facility] [address] [id number] [address] [place] [address], [place] [id number] Jul, [facility] [address] [id number] [address] [place] [address], [place] [address] Jul, [facility] [address] [id number] [address] [place] [address], [place] [id number] Jun, [facility] [address] [id number] [address] [place] [address], [place] [address] Jun, [facility] [address] [id number] [address] [place] [address], [place] [address] Jun, [facility] [address] [id number] [address] [place] [address], [place] [address] May, [facility] [address] [id number] [address] [place] [address], [place] [address] Apr, [facility] [address] [id number] [address] [place] [address], [place] [address] Apr, [facility] [address] [id number] [address] [place] [address], [place] [address] Apr, [facility] [address] [id number] [address] [place] [address], [place] [address] Apr, [facility] [address] [id number] [address] [place] [address], [place] [address] Apr, [facility] [address] [id number] [address] [place] [address], [place] [address] Apr, [facility] [address] [id number] [address] [place] [address], [place] [address] Apr, [facility] [address] [id number] [address] [place] [address], [place] [address] Apr, [facility] [address] [id number] [address] [place] [address], [place] [address] Mar, [facility] [address] [id number] [address] [place] [address], [place] [address] Mar, [facility] [address] [id number] [address] [place] [address], [place] [address] Mar, [facility] [address] [id number] [address] [place] [address], [place] [address] Mar, [facility] [address] [id number] [address] [place] [address] Mar, [facility] [address] [id number] [address] [place] [address] Mar, [facility] [address] [id number] [address] [place] [address], [place] [address] Mar, [facility] [address] [id number] [address] [place] [address], [place] [address] Mar, [facility] [address] [id number] [address] [place] [address], [place] [address] Mar, [facility] [address] [id number] [address] [place] [address], [place] [address] 2013 [facility] [address] [id number] [address] [place] [address], [place] [address] 17 Mar, 2013 [facility] [address] [id number] [address] [place] [address], [place] [address] 14 Mar, 2013 [facility] [address] [id number] [address] [place] [address], [place] [address] 14 Mar, 2013 [facility] [address] [id number] [address] [place] [address], [place] [address] 07 Mar, 2013 [facility] [address] [id number] [address] [place] [address], [place] [address] 07 Mar, 2013 [facility] [address] [id number] [address] [place] [address], [place] [address] 06 Mar, 2013 [facility] [address] [id number] [address] [place] [address], [place] [address] 06 Mar, 2013 [facility] [address] [id number] [address] [place] [address], [place] [address] 19 Sep, 2013 [facility] [address] [id number] [address] [place] [address], [place] [address] 19 Sep, 2013 [facility] [address] [id number] [address] [place] [address], [place] [address] 09 Sep, 2013 [facility] [address] [id number] [address] [place] [address], [place] [address] 09 Sep, 2013 [facility] [address] [id number] [address] [place] [address], [place] [address] 05 Sep, 2013 [facility] [address] [id number] [address] [place] [address], [place] [address] 05 Sep, 2013 [facility] [address] [id number] [address] [place] [address], [place] [address] 05 Sep, 2013 [facility] [address] [id number] [address] [place] [address], [place] [address] 05 Sep, 2013 [facility] [address] [id number] [address] [place] [address], [place] [address] Jan, 2013 [facility] [address] [id number] [address] [place] [address], [place] [address] Jan, [facility] [address] [id number] [address] [place] [address], [place] [address] Jan, 2013 [facility] [address] [id number] [address] [place] [address], [place] [address] Jan, [facility] [address] [id number] [address] [place] [address], [place] [address] Jan, [facility] [address] [id number] [address] [place] [address], [place] [address] Dec, [facility] [address] [id number] [address] [place] [address], [place] [address] Dec, [facility] [address] [id number] [address] [place] [address], [place] [address] Dec, [facility] [address] [id number] [address] [place] [address], [place] [address] Dec, [facility] [address] [id number] [address] [place] [address], [place] [address] Dec, [facility] [address] [id number] [address] [place] [address], [place] [address] Dec, [facility] [address] [place] [id number] Dec, [facility] [address] [place] [id number] Dec, [facility] [address] [id number] [address] [place] [address], [place] [address] Dec, [facility] [address] [id number] [address] [place] [address], [place] [address] Dec, [facility] [address] [id number] [address] [place] [address], [place] [address] Dec, [facility] [address] [id number] [facility] [place] [address] Dec, [facility] [address] [id number] [facility] [place] [address] Nov, [facility] [address] [id number] [facility] [place] [address] Nov, [facility] [address] [id number] [address] [place] [address], [place] [address] Nov, [facility] [address] [id number] [address] [place] [address], [place] [address] Nov, [facility] [address] [id number] [address] [place] [address], [place] [address] Nov, [facility] [address] [id number] [address] [place] [address], [place] [address] Nov, [facility] [address] [id number] [address] [place] [address], [place] [address] Nov, [facility] [address] [id number] [address] [place] [address], [place] [address] Nov, [facility] [address] [id number] [address] [place] [address], [place] [address] Nov, [facility] [address] [id number] [address] [place] [address], [place] [address] Nov, [facility] [address] [id number] [address] [place] [address], [place] [address] Nov, [facility] [address] [id number] [address] [place] [address], [place] [address] Nov, [facility] [address] [id number] [address] [place] [address], [place] [address] Nov, [facility] [address] [id number] [address] [place] [address], [place] [address] Oct, [facility] [address] [id number] [address] [place] [address], [place] [address] Oct, [facility] [address] [id number] [facility] [place] [address] Oct, [facility] [address] [id number] [address] [place] [address], [place] [address] Oct, [facility] [address] [id number] [address] [place] [address], [place] [address] Oct, [facility] [address] [id number] [address] [place] [address], [place] [address] Oct, [facility] [address] [id number] [address] [place] [address], [place] [address] Oct, [facility] [address] [id number] [address] [place] [address], [place] [address] Oct, [facility] [address] [id number] [address] [place] [address], [place] [address] Oct, [facility] [address] [id number] [address] [place] [address], [place] [address] Oct, [facility] [address] [id number] [address] [place] [address], [place] [address] Oct, [facility] [address] [id number] [address] [place] [address], [place] [address] Oct, [facility] [address] [id number] [address] [place] [address], [place] [address] September, [facility] [address] [id number] [address] [place] [address], [place] [address] September, [facility] [address] [id number] [address] [place] [address], [place] [address] September, [facility] [address] [id number] [address] [place] [address], [place] [address] September, [facility] [address] [id number] [address] [place] [address], [place] [address] Aug, [facility] [address] [id number] [facility] [place] [address] Aug, [facility] [address] [id number] [facility] [place] [address] Aug, [facility] [address] [id number] [facility] [place] [address] Aug, [facility] [address] [id number] [address] [place] [address], [place] [address] Aug, [facility] [address] [id number] [address] [place] [address], [place] [address] Aug, [facility] [address] [id number] [address] [place] [address], [place] [address] Aug, [facility] [address] [id number] [address] [place] [address], [place] [address] Jul, [facility] [address] [id number] [address] [place] [address], [place] [address] Jul, [facility] [address] [id number] [address] [place] [address], [place] [address] Jul, [facility] [address] [id number] [address] [place] [address], [place] [address] Jul, [facility] [address] [id number] [address] [place] [address], [place] [address] Jul, [facility] [address] [id number] [address] [place] [address], [place] [address] Jul, [facility] [address] [id number] [address] [place] [address], [place] [address] Jul, [facility] [address] [id number] [address] [place] [address], [place] [address] Jul, [facility] [address] [id number] [address] [place] [address], [place] [address] Jul, [facility] [address] [id number] [address] [place] [address], [place] [address] Jul, [facility] [address] [id number] [facility] [place] [address] 18 Jul, 2013 [facility] [address] [id number] [address] [place] [address], [place] [address] 18 Jul, 2013 [facility] [address] [id number] [address] [place] [address], [place] [address] 14 Jul, 2013 [facility] [address] [id number] [address] [place] [address], [place] [address] 14 Jul, 2013 [facility] [address] [id number] [address] [place] [address], [place] [address] Jul, [facility] [address] [id number] [address] [place] [address], [place] [address] Jul, [facility] [address] [id number] [address] [place] [address], [place] [address] Jul, [facility] [address] [id number] [address] [place] [address], [place] [address] Jul, [facility] [address] [id number] [address] [place] [address], [place] [address] Jun, [facility] [address] [id number] [address] [place] [address], [place] [address] Jun, [facility] [address] [id number] [address] [place] [address], [place] [address] Jun, [facility] [address] [id number] [address] [place] [address], [place] [address] 15 Jun, 2013 [facility] [address] [id number] [address] [place] [address], [place] [address] Jun, [facility] [address] [id number] [address] [place] [address], [place] [address] Jun, [facility] [address] [id number] [address] [place] [address], [place] [address] 14 Jun, 2013 [facility] [address] [id number] [address] [place] [address], [place] [address] 14 Jun, 2013 [facility] [address] [id number] [address] [place] [address], [place] [address] 14 Jun, 2013 [facility] [address] [id number] [address] [place] [address], [place] [address] 14 Jun, 2013 [facility] [address] [id number] [address] [place] [address], [place] [address] 27 May, 2013 [facility] [address] [id number] [address] [place] [address], [place] [address] 27 May, 2013 [facility] [address] [id number] [address] [place] [address], [place] [address] 26 May, 2013 [facility] [address] [id number] [address] [place] [address], [place] [address] 19 May, 2013 [facility] [address] [id number] [address] [place] [address], [place] [address] 19 May, 2013 [facility] [address] [id number] [address] [place] [address], [place] [address] 16 May, 2013 [facility] [address] [id number] [address] [place] [address], [place] [address] 16 May, 2013 [facility] [address] [id number] [address] [place] [address], [place] [address] 16 May, 2013 [facility] [address] [id number] [address] [place] [address], [place] [address] 16 May, 2013 [facility] [address] [id number] [address] [place] [address], [place] [address] 13 May, 2013 [facility] [address] [id number] [address] [place] [address], [place] [address] 13 May, 2013 [facility] [address] [id number] [address] [place] [address], [place] [address] 11 May, 2013 [facility] [address] [id number] [address] [place] [address], [place] [address] Apr, [facility] [address] [id number] [address] [place] [address], [place] [address] 18 Apr, 2013 [facility] [address] [id number] [address] [place] [address], [place] [address] 18 Apr, 2013 [facility] [address] [id number] [address] [place] [address], [place] [address] Apr, [facility] [address] [id number] [address] [place] [address], [place] [address] Apr, [facility] [address] [id number] [address] [place] [address], [place] [address] Apr, [facility] [address] [id number] [address] [place] [address], [place] [address] Apr, [facility] [address] [id number] [address] [place] [address], [place] [address] Apr, [facility] [address] [id number] [address] [place] [address] Apr, [facility] [address] [id number] [address] [place] [address], [place] [address] Apr, [facility] [address] [id number] [address] [place] [address] Apr, [facility] [address] [id number] [address] [place] [address] Mar, [facility] [address] [id number] [address] [place] [address] Mar, [facility] [address] [id number] [address] [place] [address] Mar, [facility] [address] [id number] [address] [place] [address] Mar, [facility] [address] [id number] [address] [place] [address] Mar, [facility] [address] [id number] [address] [place] [address] Mar, [facility] [address] [id number] [address] [place] [address], [place] [address] Mar, [facility] [address] [id number] [address] [place] [address], [place] [address] Mar, [facility] [address] [id number] [address] [place] [address], [place] [address] Mar, [facility] [address] [id number] [address] [place] [address], [place] [address] Mar, [facility] [address] [id number] [address] [place] [address], [place] [address] Mar, [facility] [address] [id number] [address] [place] [address], [place] [address] Mar, [facility] [address] [id number] [address] [place] [address], [place] [address] 30 Jan, 2013 [facility] [address] [id number] [address] [place] [address], [place] [address] Jan, [facility] [address] [id number] [address] [place] [address], [place] [address] 20 Jan, 2013 [facility] [address] [id number] [address] [place] [address], [place] [address] Jan, [facility] [address] [id number] [address] [place] [address], [place] [address] Dec, [facility] [address] [id number] [address] [place] [address], [place] [address] Dec, [facility] [address] [id number] [address] [place] [address], [place] [address] Dec, [facility] [address] [id number] [address] [place] [address], [place] [address] Dec, [facility] [address] [id number] [address] [place] [address], [place] [address] Dec, [facility] [address] [id number] [facility] [place] [address] Dec, [facility] [address] [id number] [address] [place] [address], [place] [address] Dec, [facility] [address] [id number] [address] [place] [address], [place] [address] Dec, [facility] [address] [id number] [address] [place] [address], [place] [address] Dec, [facility] [address] [id number] [address] [place] [address], [place] [address] Nov, [facility] [address] [id number] [address] [place] [address], [place] [address] Nov, [facility] [address] [id number] [address] [place] [address], [place] [address] Nov, [facility] [address] [id number] [address] [place] [address], [place] [address] Nov, [facility] [address] [id number] [address] [place] [address], [place] [address] Nov, [facility] [address] [id number] [address] [place] [address], [place] [address] Nov, [facility] [address] [id number] [address] [place] [address], [place] [address] Nov, [facility] [address] [id number] [address] [place] [address], [place] [address] Nov, [facility] [address] [id number] [address] [place] [address], [place] [address] Oct, [facility] [address] [id number] [address] [place] [address], [place] [address] Oct, [facility] [address] [id number] [address] [place] [address], [place] [address] Oct, [facility] [address] [id number] [address] [place] [address], [place] [address] Oct, [facility] [address] [id number] [address] [place] [address], [place] [address] Oct, [facility] [address] [id number] [address] [place] [address], [place] [address] Oct, [facility] [address] [id number] [address] [place] [address], [place] [address] Oct, [facility] [address] [id number] [address] [place] [address], [place] [address] Oct, [facility] [address] [id number] [address] [place] [address], [place] [address] Oct, [facility] [address] [id number] [address] [place] [address], [place] [address] 18 Oct, 2012 [facility] [address] [id number] [address] [place] [address], [place] [address] 17 Oct, 2012 [facility] [address] [id number] [address] [place] [address], [place] [address] 14 Oct, 2012 [facility] [address] [id number] [address] [place] [address], [place] [address] 07 Oct, 2012 [facility] [address] [id number] [address] [place] [address], [place] [address] 30 Sep, 2012 [facility] [address] [id number] [address] [place] [address], [place] [address] September, [facility] [address] [id number] [address] [place] [address], [place] [address] September, [facility] [address] [id number] [address] [place] [address], [place] [address] Aug, [facility] [address] [id number] [address] [place] [address], [place] [address] 24 Aug, 2012 [facility] [address] [id number] [address] [place] [address], [place] [address] 18 Aug, 2012 [facility] [address] [id number] [address] [place] [address], [place] [address] 18 Aug, 2012 [facility] [address] [id number] [address] [place] [address], [place] [address] 18 Aug, 2012 [facility] [address] [id number] [address] [place] [address], [place] [address] 08 Aug, 2012 [facility] [address] [id number] [address] [place] [address], [place] [address] 05 Aug, 2012 [facility] [address] [id number] [address] [place] [address], [place] [address] Jul, [facility] [address] [id number] [address] [place] [address], [place] [address] Jul, [facility] [address] [id number] [address] [place] [address], [place] [address] Jul, [facility] [address] [id number] [address] [place] [address], [place] [address] Jul, [facility] [address] [id number] [address] [place] [address], [place] [address] Jul, [facility] [address] [id number] [address] [place] [address], [place] [address] Jul, [facility] [address] [id number] [address] [place] [address], [place] [address] Jul, [facility] [address] [id number] [address] [place] [address], [place] [address] Jul, [facility] [address] [id number] 75 [place] [address], [place] [address] Jul, [facility] [address] [id number] [address] [place] [address], [place] [address] 19 Jul, [address] [facility] [address] [id number] [address] [place] [address], [place] [address] 11 Jul, 2012 [facility] [address] [id number] [address] [place] [address], [place] [address] 06 Jul, 2012 [facility] [address] [id number] [address] [place] [address], [place] [address] Jul, [facility] [address] [id number] [address] [place] [address], [place] [address] 24 Jun, 2012 [facility] [address] [id number] [address] [place] [address], [place] [address] Jun, [facility] [address] [id number] [address] [place] [address], [place] [address] Jun, [facility] [address] [id number] [address] [place] [address], [place] [address] 17 Jun, 2012 [facility] [address] [id number] [address] [place] [address], [place] [address] 15 Jun, 2012 [facility] [address] [id number] [address] [place] [address], [place] [address] Jun, [facility] [address] [id number] [address] [place] [address], [place] [address] Jun, [facility] [address] [id number] [address] [place] [address], [place] [address] May, [facility] [address] [id number] [address] [place] [address], [place] [address] May, [facility] [address] [id number] [address] [place] [address], [place] [address] May, [facility] [address] [id number] [address] [place] [address], [place] [address] May, [facility] [address] [id number] [address] [place] [address], [place] [address] May, [facility] [address] [id number] [address] [place] [address], [place] [address] 24 May, 2012 [facility] [address] [id number] [address] [place] [address], [place] [address] May, [facility] [address] [id number] [address] [place] [address], [place] [address] May, [facility] [address] [id number] [address] [place] [address], [place] [address] May, [facility] [address] [id number] [address] [place] [address], [place] [address] May, [facility] [address] [id number] [address] [place] [address], [place] [address] Apr, [facility] [address] [id number] [address] [place] [address], [place] [address] Apr, [facility] [address] [id number] [address] [place] [address], [place] [address] Apr, [facility] [address] [id number] [address] [place] [address], [place] [address] Apr, [facility] [address] [id number] [address] [place] [address], [place] [address] Apr, [facility] [address] [id number] [address] [place] [address], [place] [address] Apr, [facility] [address] [id number] [address] [place] [address], [place] [address] Apr, [facility] [address] [id number] [address] [place] [address], [place] [address] Apr, [facility] [address] [id number] [address] [place] [address], [place] [address] Apr, [facility] [address] [id number] [address] [place] [address], [place] [address] Apr, [facility] [address] [id number] [address] [place] [address], [place] [address] Apr, [facility] [address] [id number] [address] [place] [address], [place] [address] Apr, [facility] [address] [id number] [address] [place] [address], [place] [address] Mar, [facility] [address] [id number] [address] [place] [address], [place] [address] Mar, 2011 [facility] [address] [id number] [address] [place] [address], [place] [address] Mar, 2011 [facility] [address] [id number] [address] [place] [address], [place] [address] Mar, 2011 [facility] [address] [id number] [address] [place] [address], [place] [address] Mar, 2011 [facility] [address] [id number] [address] [place] [address], [place] [address] Mar, 2011 [facility] [address] [id number] [address] [place] [address], [place] [address] Mar, 2011 [facility] [address] [id number] [address] [place] [address], [place] [address] Mar, 2011 [facility] [address] [id number] [address] [place] [address], [place] [address] Mar, 2011 [facility] [address] [id number] [address] [place] [address], [place] [address] Mar, [facility] [address] [id number] [address] [place] [address] Mar, [facility] [address] [id number] [address] [place] [address] Mar, [facility] [address] [id number] [address] [place] [address] Mar, [facility] [address] [id number] [address] [place] [address], [place] [address] Mar, [facility] [address] [id number] [address] [place] [address] Mar, [facility] [address] [id number] [address] [place] [address] Mar, [facility] [address] [id number] [address] [place] [address] 25 Sep, 2011 [facility] [address] [id number] [address] [place] [address], [place] [address] 24 Sep, 2011 [facility] [address] [id number] [address] [place] [address], [place] [address] 22 Jan, 2011 [facility] [address] [id number] [address] [place] [address], [place] [address] 22 Jan, 2011 [facility] [address] [id number] [address] [place] [address], [place] [address] 21 Jan, 2011 [facility] [address] [id number] [address] [place] [address], [place] [address] 18 Jan, 2011 [facility] [address] [id number] [address] [place] [address], [place] [address] 14 Jan, 2012 [facility] [address] [id number] [address] [place] [address], [place] [address] 07 Jan, 2012 [facility] [address] [id number] [address] [place] [address], [place] [address] 15 Dec, 2011 [facility] [address] [id number] [address] [place] [address], [place] [address] 10 Dec, 2011 [facility] [address] [id number] [address] [place] [address], [place] [address] Dec, [facility] [address] [id number] [address] [place] [address], [place] [address] Dec, [facility] [address] [id number] [address] [place] [address], [place] [address] Dec, [facility] [address] [id number] [address] [place] [address], [place] [address] Dec, [facility] [address] [id number] [address] [place] [address], [place] [address] Dec, [facility] [address] [id number] [address] [place] [address], [place] [address] Nov, [facility] [address] [id number] [address] [place] [address], [place] [address] 06 Oct, 2011 [facility] [address] [id number] [address] [place] [address], [place] [address] 05 Aug, 2011 [facility] [address] [id number] [address] [place] [address], [place] [address] 22 Jul, 2011 [facility] [address] [id number] [address] [place] [address], [place] [address] 19 Jul, 2011 [facility] [address] [id number] [address] [place] [address], [place] [address] 16 Jul, 2011 [facility] [address] [id number] [address] [place] [address], [place] [address] 14 Jul, 2011 [facility] [address] [id number] [address] [place] [address], [place] [address] 07 Jul, 2011 [facility] [address] [id number] [address] [place] [address], [place] [address] 02 Jul, 2011 [facility] [address] [id number] [address] [place] [address], [place] [address] 21 Jul, 2011 [facility] [address] [id number] [address] [place] [address], [place] [address] 15 Jul, 2011 [facility] [address] [id number] [address] [place] [address], [place] [address] 13 Jul, 2011 [facility] [address] [id number] [address] [place] [address], [place] [address] 03 Jul, [address] [facility] [address] [id number] [address] [place] [address], [place] [address] 02 Jul, 2011 [facility] [address] [id number] [address] [place] [address], [place] [address] 24 Jun, [address] [facility] [address] [id number] [address] [place] [address], [place] [address] 24 Jun, 2011 [facility] [address] [id number] [address] [place] [address], [place] [address] Jun, [facility] [address] [id number] [address] [place] [address], [place] [address] Jun, [facility] [address] [id number] [address] [place] [address], [place] [address] Jun, [facility] [address] [id number] [address] [place] [address], [place] [address] Jun, [facility] [address] [id number] [address] [place] [address], [place] [address] Jun, [facility] [address] [id number] [address] [place] [address], [place] [address] May, [facility] [address] [id number] [address] [place] [address], [place] [address] May, [facility] [address] [id number] [address] [place] [address], [place] [address] May, [facility] [address] [id number] [address] [place] [address], [place] [address] May, [facility] [address] [id number] [address] [place] [address], [place] [address] May, [facility] [address] [id number] [address] [place] [address], [place] [address] May, [facility] [address] [id number] [address] [place] [address], [place] [address] May, [facility] [address] [id number] [address] [place] [address], [place] [address] May, [facility] [address] [id number] [address] [place] [address], [place] [address] May, [facility] [address] [id number] [address] [place] [address], [place] [address] May, [facility] [address] [id number] [address] [place] [address], [place] [address] 15 Apr, 2011 [facility] [address] [id number] [address] [place] [address] Apr, [facility] [address] [id number] [address] [place] [address] Apr, [facility] [address] [id number] [address] [place] [address] Apr, [facility] [address] [id number] [address] [place] [address] Mar, [facility] [address] [id number] [address] [place] [address] Mar, [facility] [address] [id number] [address] [place] [address] Mar, [facility] [address] [facility] [id number] [address] [place] [address] Mar, IMMUNIZATIONS No Known Immunizations SOCIAL HISTORY Never Assessed REASON FOR VISIT PLAN OF CARE VITAL SIGNS Height 61 in 2013-02-23 Weight 173 lbs 2013-02-23 Heart Rate 80 bpm 2013-02-23 Respiratory Rate 22 2013-02-23 Blood pressure systolic 150 mmHg 2013-02-23 Blood pressure diastolic 48 mmHg 2013-02-23 MEDICATIONS Unknown Medications RESULTS No Results PROCEDURES [...]
--- OUTSIDE RECORDS SUMMARY | 2020-01-03 17:55 | XMS REPORT ---
Author Author Pattie VIEIRA Organization [facility] Address [address] [place] [address] Care Team Providers [employer] Name Role Phone REYNALDO VIEIRA Unavailable PROBLEMS Type Condition ICD9-CM Code GYZ84-GU Code Onset Dates Condition S tatus SNOMED Code Problem FRANCIS (generalized anxiety disorder) F41.1 Active 83400258 Problem Thoracic disc herniation M51.24 Activ e 265892849 Problem Major depressive disorder in partial remission F32 .4 Active 18154697 Problem Seizure disorder G40.909 Active 128 491526 Problem Conversion disorder (or hysterical neurosis, conversion ty pe) F44.9 Active 07759208 Problem Constipation, unspecified constipation type K59.00 Active 73035294 Problem Mild episode of recurrent major depressive disorder F33.0 Active 503575714 Problem Restless leg syndrome G25.81 Active 66261974 Problem Nonadherence to medication Z91.14 Act vivian 972033450 Problem Slow transit constipation K59.01 Acti ve 55648370 Problem Atrophic vaginitis N95.2 Active 5 9891958 Problem Paroxysmal tachycardia I47.9 Active 86141440 Problem Other chronic pain G89.29 Active 8 2268822 Problem Mild intermittent asthma without complication J45. 20 Active 137759264 Problem Obesity (BMI 30.0-34.9) E66.9 Active [id number] Problem High blood pressure I10 Active 15785916 ALLERGIES No Information ENCOUNTERS Encounter Location Date Diagnosis [facility] [address] [id number] [address] [place] [address] 03 Nov, 2019 [place] [address] [facility] [address] [id number] [id number] 26 Oct, 2019 Breast cancer screening Z12.[id number] [address] 08 Oct, 2019 Breast cancer screening Z12. 39 [facility] [address] [id number] [address] [place] [address] Oct, [facility] [address] [id number] [address] [place] [address] Oct, [facility] [address] [id number] [address] [place] [address] September, [facility] [address] [id number] [address] [place] [address] September, [facility] [address] [id number] [address] [place] [address] September, Well woman exam with routine gynecological exam Z01.419 and Atrophic vaginitis N95.2 [facility] [address] [id number] [address] [place] [address] September, Major depressive disorder in partial remission F32.4 ; FRANCIS (generalized anxiety disorder) F41.1 ; Restless leg syndrome G25.81 and Nonadherence to medication Z91.14 [facility] [address] [id number] [address] [place] [address] September, [facility] [address] [id number] [address] [place] [address] Aug, [facility] [address] [facility] [id number] [address] [place] [id number] Aug, Dental examination Z01.20 [facility] [address] [id number] [address] [place] [address] [id number] Aug, Dental examination Z01.20 an d Caries K02.9 [facility] [address] [id number] [address] [place] [address] Aug, [facility] [address] [id number] [address] [place] [phone] Aug, [facility] [address] [id number] [address] [place] [address] Aug, Other chronic pain G89.29 an d Back muscle spasm M62.830 [facility] [address] [id number] [address] [place] [address] Aug, [facility] [address] [id number] [address] [place] [phone] Aug, Major depressive disorder in partial remission F32.4 ; FRANCIS (generalized anxiety disorder) F41.1 ; Restless leg syndrome G25.81 and Nonadherence to medication Z91.14 [facility] [address] [id number] [address] [place] [address] Aug, [facility] [address] [id number] [address] [place] [phone] Jul, [facility] [address] [id number] [address] [place] [phone] Jul, [facility] [address] [id number] [address] [place] [phone] Jul, Major depressive disorder in partial remission F32.4 ; FRANCIS (generalized anxiety disorder) F41.1 ; Restless leg syndrome G25.81 and High blood pressure I10 [facility] [address] [id number] [address] [place] [phone] 17 Jul, 2019 [facility] [address] [id number] [address] [place] [address] Jul, [facility] [address] [id number] [address] [place] [phone] Jun, [facility] [address] [id number] [address] [place] [address] May, [facility] [address] [id number] [address] [place] [address] Apr, [facility] [address] [id number] [address] [place] [phone] Apr, [facility] [address] [id number] [address] [place] [address] Mar, [facility] [address] [id number] [address] [place] [address] Mar, Major depressive disorder in partial remission F32.4 ; FRANCIS (generalized anxiety disorder) F41.1 and Restless leg syndrome G25.81 [facility] [address] [id number] [address] [place] [address] Mar, Obesity (BMI 30.0-34.9) E66. 9 [facility] [address] [id number] [address] [place] [address] Jan, [facility] [address] [id number] [address] [place] [address] Jan, Burn T30.0 [facility] [address] [id number] [address] [place] [phone] Dec, [facility] [address] [facility] [id number] [address] [place] [phone] Nov, [facility] [address] [id number] [address] [place] [phone] Nov, [facility] [address] [id number] Nov, Dental examination Z01.20 [facility] [address] [id number] [address] [place] [phone] September, [facility] [id number] [place] [id number] September, Decay, teeth K02.9 and Denta l examination Z01.20 [facility] [address] [id number] [address] [place] [address] [id number] September, Dental examination Z01.20 [facility] [address] [id number] [address] [place] [address] September, FRANCIS (generalized anxiety dis order) F41.1 ; Major depressive disorder in partial remission F32.4 and Restless leg syndrome G25.81 [facility] [address] [id number] [address] [place] [address] Aug, [facility] [address] [id number] [address] [place] [phone] Jul, [facility] [address] [id number] [address] [place] [address] Jul, Encounter to discuss test re sults Z71.2 [place] [address] [place] [id number] [place] [address] Jul, Pelvic pain R10.2 ; Screenin g for breast cancer Z12.31 and Obesity (BMI 30.0-34.9) E66.9 [place] [address] [facility] [id number] [address] [place] [address] Jul, Mild intermittent asthma wit hout complication J45.20 [place] [address] [place] [id number] [place] [address] Jul, Major depressive disorder in partial remission F32.4 and FRANCIS (generalized anxiety disorder) F41.1 [place] [address] [place] [id number] [address] [place] [address] Jul, [facility] [address] [place] [id number] [address] [place] [phone] Jun, [facility] [address] [place] [id number] [address] [place] [phone] May, Major depressive disorder in partial remission F32.4 ; FRANCIS (generalized anxiety disorder) F41.1 and Restless leg syndrome G25.81 [facility] [address] [id number] [address] [place] [address] Apr, [place] [address] [facility] [facility] [id number] [address] [place] [address] Mar, [facility] [address] [id number] [address] [place] [address] Jan, Pain in thoracic spine M54.6 and Other chronic pain G89.29 [facility] [address] [id number] [address] [place] [address] 14 Jan, 2018 [facility] [address] [id number] [address] [place] [phone] 11 Jan, 2018 Mild episode of recurrent ma saray depressive disorder F33.0 ; FRANCIS (generalized anxiety disorder) F41.1 and Restless leg syndrome G25.81 [facility] [address] [id number] [address] [place] [address] Dec, [facility] [address] [id number] [address] [place] [phone] Dec, Hospital discharge follow-up Z09 [facility] [address] [id number] [address] [place] [phone] Nov, [facility] [address] [id number] [address] [place] [address] Nov, [facility] [address] [id number] [address] [place] [phone] September, [facility] [address] [id number] [address] [place] [phone] September, [facility] [address] [id number] [address] [place] [phone] September, Major depressive disorder in partial remission F32.4 ; FRANCIS (generalized anxiety disorder) F41.1 and Restless leg syndrome G25.81 [facility] [address] [id number] [address] [place] [address] September, [facility] [address] [id number] [address] [place] [address] Jul, [facility] [address] [id number] [address] [place] [address] Jul, Dorsalgia, unspecified M54.9 [facility] [address] [id number] [address] [place] [phone] Jul, Mild episode of recurrent ma saray depressive disorder F33.0 and FRANCIS (generalized anxiety disorder) F41.1 [facility] [address] [id number] [address] [place] [phone] May, [facility] [address] [id number] [address] [place] [address] May, Dysuria R30.0 and Acute cyst itis with hematuria N30.01 [facility] [address] [id number] [address] [place] [address] Apr, [facility] [address] [id number] [address] [place] [address] Apr, Major depressive disorder in partial remission F32.4 and FRANCIS (generalized anxiety disorder) F41.1 [place] [address] [place] [id number] [address] [place] [address] Mar, Paroxysmal tachycardia I47.9 [place] [address] [id number] [address] [place] [address] Mar, Paroxysmal tachycardia I47.9 and Pain of left lower extremity M79.605 [place] [address] [facility] [id number] [address] [place] [address] Mar, FRANCIS (generalized anxiety dis order) F41.1 and Major depressive disorder in partial remission F32.4 [place] [address] [id number] [address] [place] [address] Jan, [facility] [address] [id number] [address] [place] [phone] Jan, [facility] [address] [id number] [address] [place] [address] Jan, [facility] [address] [id number] [address] [place] [address] Dec, Constipation, unspecified co nstipation type K59.00 [facility] [address] [place] [id number] [address] [place] [phone] Dec, [facility] [address] [id number] [address] [place] [phone] Nov, [facility] [address] [id number] [address] [place] [phone] Nov, Major depressive disorder in partial remission F32.4 and FRANCIS (generalized anxiety disorder) F41.1 [facility] [address] [id number] [address] [place] [address] Oct, Abdominal pain R10.9 and Slo w transit constipation K59.01 [facility] [address] [id number] [address] [place] [address] Aug, Major depressive disorder in partial remission F32.4 ; FRANCIS (generalized anxiety disorder) F41.1 ; Conversion disorder (or hysterical neurosis, conversion type) F44.9 ; Dorsalgia, unspecified M54.9 and Long-term use of high-risk medication Z79.899 [place] [address] [facility] [id number] [address] [place] [address] Aug, [place] [address] [facility] [id number] [address] [place] [address] Jul, Paroxysmal tachycardia I47.9 [facility] [address] [id number] [address] [place] [phone] 10 Jul, 2016 Paroxysmal tachycardia I47.9 [place] [address] [facility] [id number] [address] [place] [address] Jun, [place] [address] [facility] [id number] [address] [place] [phone] Jun, Major depressive disorder in partial remission F32.4 ; FRANCIS (generalized anxiety disorder) F41.1 and Conversion disorder (or hysterical neurosis, conversion type) F44.9 [facility] [address] [id number] [address] [place] [address] May, Pelvic pain R10.2 [facility] [address] [id number] [address] [place] [phone] 30 Apr, 2016 Gastroenteritis K52.9 [facility] [address] [id number] [address] [place] [address] Apr, Blood in urine R31.9 and Acu te cystitis with hematuria N30.01 [facility] [address] [id number] [address] [place] [address] Apr, Major depressive disorder in partial remission F32.4 ; FRANCIS (generalized anxiety disorder) F41.1 and Conversion disorder (or hysterical neurosis, conversion type) F44.9 [facility] [address] [id number] [address] [place] [address] Apr, [facility] [address] [id number] [address] [place] [address] Apr, Abnormal mammogram R92.8 [facility] [address] [id number] [address] [place] [address] Mar, [facility] [address] [id number] [address] [place] [address] Mar, Gastroenteritis K52.9 and Se izure disorder G40.909 [facility] [address] [id number] [address] [place] [address] Dec, [facility] [address] [id number] [address] [place] [address] Dec, Other headache syndrome G44. 89 [facility] [address] [id number] [address] [place] [address] Dec, [facility] [address] [id number] [address] [place] [address] Dec, Thoracic disc herniation M51 .24 [facility] [address] [id number] [address] [place] [address] Dec, [facility] [address] [facility] [id number] [address] [place] [id number] Nov, Major depressive disorder in partial remission F32.4 and FRANCIS (generalized anxiety disorder) F41.1 [facility] [address] [id number] [address] [place] [address], [place] [address] Nov, [facility] [address] [id number] [address] [place] [address], [place] [address] Nov, Dorsalgia, unspecified M54.9 [facility] [address] [id number] [address] [place] [address], [place] [address] Oct, [facility] [address] [id number] [address] [place] [address] September, [facility] [address] [id number] [address] [place] [address], [place] [address] Aug, [facility] [address] [id number] [address] [place] [address] Aug, Major depressive disorder in partial remission F32.4 and FRANCIS (generalized anxiety disorder) F41.1 [facility] [address] [id number] [address] [place] [address] Aug, [facility] [address] [id number] [address] [place] [address] Jul, Abnormal mammogram R92.8 [facility] [address] [id number] [address] [place] [address] Jul, [facility] [address] [id number] [address] [place] [address] Jul, [facility] [address] [id number] [address] [place] [address] Jul, [facility] [address] [id number] [address] [place] [address], [place] [address] Jul, [facility] [address] [id number] [address] [place] [address] Jul, [facility] [address] [id number] [address] [place] [address] Jul, [facility] [address] [id number] [address] [place] [address] Jun, Major depressive disorder in partial remission F32.4 and FRANCIS (generalized anxiety disorder) F41.1 [facility] [address] [id number] [address] [place] [address] Jun, [facility] [address] [id number] [address] [place] [address] May, [facility] [address] [id number] [address] [place] [address] Apr, [facility] [address] [id number] [address] [place] [address] Mar, Major depressive disorder, r ecurrent episode, moderate F33.1 ; PTSD (post-traumatic stress disorder) F43.10 and FRANCIS (generalized anxiety disorder) F41.1 [facility] [address] [id number] [address] [place] [address] Mar, [facility] [address] [id number] [address] [place] [address] Mar, [facility] [address] [id number] [address] [place] [address] Mar, [facility] [address] [id number] [address] [place] [address] Mar, [facility] [address] [id number] [address] [place] [phone] 23 Jan, 2015 [facility] [address] [id number] [address] [place] [address] 15 Jan, 2015 [facility] [address] [id number] [address] [place] [address] 15 Jan, 2015 [facility] [address] [id number] [address] [place] [address] 14 Jan, 2015 Thoracic disc herniation 722 .11 [facility] [address] [id number] [address] [place] [address] Dec, [facility] [address] [id number] [address] [place] [address] Dec, [facility] [address] [id number] [address] [place] [address] Dec, [facility] [address] [id number] [address] [place] [address] Nov, [facility] [address] [id number] [address] [place] [address] Nov, Generalized anxiety disorder 300.02 ; Posttraumatic stress disorder 309.81 and Major depressive disorder, recurrent episode, moderate 296.32 [facility] [address] [id number] [address] [place] [address] Nov, [facility] [address] [id number] [address] [place] [phone] Nov, [facility] [address] [id number] [address] [place] [phone] Oct, [facility] [address] [id number] [address] [place] [phone] Oct, [facility] [address] [id number] [address] [place] [id number] Oct, [facility] [address] [id number] [address] [place] [phone] September, [facility] [address] [id number] [address] [place] [id number] September, [facility] [address] [id number] [address] [place] [phone] Aug, [facility] [address] [id number] [address] [place] [phone] Aug, [facility] [address] [id number] [address] [place] [phone] Jul, [facility] [address] [id number] [address] [place] [address], [place] [id number] 25 Jul, 2014 [facility] [address] [id number] [address] [place] [address], [place] [address] Jul, [facility] [address] [id number] [address] [place] [address], [place] [id number] 17 Jul, 2014 [facility] [address] [id number] [address] [place] [address], [place] [id number] 16 Jul, 2014 [facility] [address] [id number] [address] [place] [address], [place] [address] 16 Jul, 2014 [facility] [address] [id number] [address] [place] [address], [place] [address] Jul, [facility] [address] [id number] [address] [place] [address], [place] [address] Jul, [facility] [address] [id number] [address] [place] [address], [place] [address] Jul, [facility] [address] [id number] [address] [place] [address], [place] [address] Jul, [facility] [address] [id number] [address] [place] [address], [place] [address] Jun, [facility] [facility] [address] [id number] [address] [place] [address], [place] [address] Jun, [facility] [address] [id number] [address] [place] [address], [place] [address] Jun, [facility] [address] [id number] [address] [place] [address], [place] [address] May, [facility] [address] [id number] [address] [place] [address], [place] [address] Apr, [facility] [address] [id number] [address] [place] [address], [place] [address] Apr, [facility] [address] [id number] [address] [place] [address], [place] [address] Apr, [facility] [address] [id number] [address] [place] [address], [place] [address] Apr, [facility] [address] [id number] [address] [place] [address], [place] [address] Apr, [facility] [address] [id number] [address] [place] [address], [place] [address] Apr, [facility] [address] [id number] [address] [place] [address], [place] [address] Apr, [facility] [address] [id number] [address] [place] [address], [place] [address] Apr, [facility] [address] [id number] [address] [place] [address], [place] [address] Mar, [facility] [address] [id number] [address] [place] [address], [place] [address] Mar, [facility] [address] [id number] [address] [place] [address], [place] [address] Mar, [facility] [address] [id number] [address] [place] [address], [place] [address] Mar, [facility] [address] [id number] [address] [place] [address], [place] [address] Mar, [facility] [address] [id number] [address] [place] [address], [place] [address] Mar, [facility] [address] [id number] [address] [place] [address] Mar, [facility] [address] [id number] [address] [place] [address], [place] [address] Mar, [facility] [address] [id number] [address] [place] [address], [place] [address] Mar, [facility] [address] [id number] [address] [place] [address], [place] [address] Mar, [facility] [address] [id number] [address] [place] [address], [place] [address] 17 Mar, 2013 [facility] [address] [id number] [address] [place] [address], [place] [address] 14 Mar, 2013 [facility] [address] [id number] [address] [place] [address], [place] [address] 14 Mar, 2013 [facility] [address] [id number] [address] [place] [address], [place] [address] 07 Mar, 2013 [facility] [address] [id number] [address] [place] [address], [place] [address] 07 Mar, 2013 [facility] [address] [id number] [address] [place] [address], [place] [address] 06 Mar, 2013 [facility] [address] [id number] [address] [place] [address], [place] [address] 06 Mar, 2013 [facility] [address] [id number] [address] [place] [address], [place] [address] 19 Sep, 2013 [facility] [address] [id number] [address] [place] [address], [place] [address] 19 Sep, 2013 [facility] [address] [id number] [address] [place] [address], [place] [address] 09 Sep, 2013 [facility] [address] [id number] [address] [place] [address], [place] [address] 09 Sep, 2013 [facility] [address] [id number] [address] [place] [address], [place] [address] 05 Sep, 2013 [facility] [address] [id number] [address] [place] [address], [place] [address] 05 Sep, 2013 [facility] [address] [id number] [address] [place] [address], [place] [address] 05 Sep, 2013 [facility] [address] [id number] [address] [place] [address], [place] [address] 05 Sep, 2013 [facility] [address] [id number] [address] [place] [address], [place] [address] Jan, [facility] [address] [id number] [address] [place] [address], [place] [address] Jan, [facility] [address] [id number] [address] [place] [address], [place] [address] Jan, [facility] [address] [id number] [address] [place] [address], [place] [address] Jan, [facility] [address] [id number] [address] [place] [address], [place] [address] Jan, [facility] [address] [id number] [address] [place] [address], [place] [address] Dec, [facility] [address] [id number] [address] [place] [address], [place] [address] Dec, [facility] [address] [id number] [address] [place] [address], [place] [address] Dec, [facility] [address] [id number] [address] [place] [address], [place] [address] Dec, [facility] [address] [id number] [address] [place] [address], [place] [address] Dec, [facility] [address] [id number] [address] [place] [address], [place] [address] Dec, [facility] [address] [place] [id number] Dec, [facility] [address] [place] [id number] Dec, [facility] [address] [id number] [address] [place] [address], [place] [address] Dec, [facility] [address] [id number] [address] [place] [address], [place] [address] Dec, [facility] [address] [id number] [address] [place] [address], [place] [address] Dec, [facility] [address] [id number] [address] [place] [address], [place] [address] Dec, [facility] [address] [id number] [facility] [place] [address] Nov, [facility] [address] [id number] [facility] [address] Nov, [facility] [address] [id number] [facility] [address] Nov, [facility] [address] [id number] [facility] [address] Nov, [facility] [address] [id number] [address] [place] [address], [place] [address] Nov, [facility] [address] [id number] [address] [place] [address], [place] [address] Nov, [facility] [address] [id number] [address] [place] [address], [place] [address] Nov, [facility] [address] [id number] [address] [place] [address], [place] [address] Nov, [facility] [address] [id number] [address] [place] [address], [place] [address] Nov, [facility] [address] [id number] [address] [place] [address], [place] [address] Nov, [facility] [address] [id number] [address] [place] [address], [place] [address] Nov, [facility] [address] [id number] [address] [place] [address], [place] [address] Nov, [facility] [address] [id number] [address] [place] [address], [place] [address] Nov, [facility] [address] [id number] [address] [place] [address], [place] [address] Oct, [facility] [address] [id number] [address] [place] [address], [place] [address] Oct, [facility] [address] [id number] [address] [place] [address], [place] [address] Oct, [facility] [address] [id number] [facility] [address] Oct, [facility] [address] [id number] [address] [place] [address], [place] [address] Oct, [facility] [address] [id number] [address] [place] [address], [place] [address] Oct, [facility] [address] [id number] [address] [place] [address], [place] [address] Oct, [facility] [address] [id number] [address] [place] [address], [place] [address] Oct, [facility] [address] [id number] [address] [place] [address], [place] [address] Oct, [facility] [address] [id number] [address] [place] [address], [place] [address] Oct, [facility] [address] [id number] [address] [place] [address], [place] [address] Oct, [facility] [address] [id number] [address] [place] [address], [place] [address] Oct, [facility] [address] [id number] [address] [place] [address], [place] [address] September, [facility] [address] [id number] [address] [place] [address], [place] [address] September, [facility] [address] [id number] [address] [place] [address], [place] [address] September, [facility] [address] [id number] [address] [place] [address], [place] [address] September, [facility] [address] [id number] [address] [place] [address], [place] [address] Aug, [facility] [address] [id number] [address] [place] [address], [place] [address] Aug, [facility] [address] [id number] [facility] [address] 22 Aug, 2013 [facility] [address] [id number] [address] [place] [address], [place] [address] 22 Aug, 2013 [facility] [address] [id number] [address] [place] [address], [place] [address] 18 Aug, 2013 [facility] [address] [id number] [address] [place] [address], [place] [address] Aug, [facility] [address] [id number] [address] [place] [address], [place] [address] Aug, [facility] [address] [id number] [address] [place] [address], [place] [address] Jul, [facility] [address] [id number] [address] [place] [address], [place] [address] Jul, [facility] [address] [id number] [address] [place] [address], [place] [address] Jul, [facility] [address] [id number] [address] [place] [address], [place] [address] 28 Jul, 2013 [facility] [address] [id number] [address] [place] [address], [place] [address] Jul, [facility] [address] [id number] [address] [place] [address], [place] [address] Jul, [facility] [address] [id number] [address] [place] [address], [place] [address] 18 Jul, 2013 [facility] [address] [id number] [address] [place] [address], [place] [address] Jul, [facility] [address] [id number] [address] [place] [address], [place] [address] 18 Jul, 2013 [facility] [address] [id number] [address] [place] [address], [place] [address] 18 Jul, 2013 [facility] [address] [id number] [address] [place] [address], [place] [address] Jul, [facility] [address] [id number] [facility] [address] 18 Jul, 2013 [facility] [address] [id number] [address] [place] [address], [place] [address] 14 Jul, 2013 [facility] [address] [id number] [address] [place] [address], [place] [address] 14 Jul, 2013 [facility] [address] [id number] [address] [place] [address], [place] [address] Jul, [facility] [address] [id number] [address] [place] [address], [place] [address] Jul, [facility] [address] [id number] [address] [place] [address], [place] [address] Jul, [facility] [address] [id number] [address] [place] [address], [place] [address] Jul, [facility] [address] [id number] [address] [place] [address], [place] [address] Jun, [facility] [address] [id number] [address] [place] [address], [place] [address] 31 Jun, 2013 [facility] [address] [id number] [address] [place] [address], [place] [address] 15 Jun, 2013 [facility] [address] [id number] [address] [place] [address], [place] [address] 15 Jun, 2013 [facility] [address] [id number] [address] [place] [address], [place] [address] 14 Jun, 2013 [facility] [address] [id number] [address] [place] [address], [place] [address] 14 Jun, 2013 [facility] [address] [id number] [address] [place] [address], [place] [address] 14 Jun, 2013 [facility] [address] [id number] [address] [place] [address], [place] [address] 14 Jun, 2013 [facility] [address] [id number] [address] [place] [address], [place] [address] 14 Jun, 2013 [facility] [address] [id number] [address] [place] [address], [place] [address] 14 Jun, 2013 [facility] [address] [id number] [address] [place] [address], [place] [address] 27 May, 2013 [facility] [address] [id number] [address] [place] [address], [place] [address] 27 May, 2013 [facility] [address] [id number] [address] [place] [address], [place] [address] 26 May, 2013 [facility] [address] [id number] [address] [place] [address], [place] [address] 19 May, 2013 [facility] [address] [id number] [address] [place] [address], [place] [address] 19 May, 2013 [facility] [address] [id number] [address] [place] [address], [place] [address] 16 May, 2013 [facility] [address] [id number] [address] [place] [address], [place] [address] 16 May, 2013 [facility] [address] [id number] [address] [place] [address], [place] [address] 16 May, 2013 [facility] [address] [id number] [address] [place] [address], [place] [address] 16 May, 2013 [facility] [address] [id number] [address] [place] [address], [place] [address] 13 May, 2013 [facility] [address] [id number] [address] [place] [address], [place] [address] 13 May, 2013 [facility] [address] [id number] [address] [place] [address], [place] [address] 11 May, 2013 [facility] [address] [id number] [address] [place] [address], [place] [address] 20 Apr, 2013 [facility] [address] [id number] [address] [place] [address], [place] [address] Apr, [facility] [address] [id number] [address] [place] [address], [place] [address] 18 Apr, 2013 [facility] [address] [id number] [address] [place] [address], [place] [address] Apr, [facility] [address] [id number] [address] [place] [address], [place] [address] Apr, [facility] [address] [id number] [address] [place] [address], [place] [address] Apr, [facility] [address] [id number] [address] [place] [address], [place] [address] 08 Apr, 2013 [facility] [address] [id number] [address] [place] [address], [place] [address] Apr, [facility] [address] [id number] [address] [place] [address], [place] [address] Apr, [facility] [address] [id number] [address] [place] [address] Apr, [facility] [address] [id number] [address] [place] [address], [place] [address] Apr, [facility] [address] [id number] [address] [place] [address] Mar, [facility] [address] [id number] [address] [place] [address] Mar, [facility] [address] [id number] [address] [place] [address] Mar, [facility] [address] [id number] [address] [place] [address] Mar, [facility] [address] [id number] [address] [place] [address] Mar, [facility] [address] [id number] [address] [place] [address] Mar, [facility] [address] [id number] [address] [place] [address] Mar, [facility] [address] [id number] [address] [place] [address], [place] [address] Mar, [facility] [address] [id number] [address] [place] [address], [place] [address] 18 Mar, 2013 [facility] [address] [id number] [address] [place] [address], [place] [address] 15 Mar, 2013 [facility] [address] [id number] [address] [place] [address], [place] [address] 15 Mar, 2013 [facility] [address] [id number] [address] [place] [address], [place] [address] Mar, [facility] [address] [id number] [address] [place] [address], [place] [address] 30 Jan, 2013 [facility] [address] [id number] [address] [place] [address], [place] [address] 25 Jan, 2013 [facility] [address] [id number] [address] [place] [address], [place] [address] 20 Jan, 2013 [facility] [address] [id number] [address] [place] [address], [place] [address] Jan, [facility] [address] [id number] [address] [place] [address], [place] [address] Dec, [facility] [address] [id number] [address] [place] [address], [place] [address] Dec, [facility] [address] [id number] [address] [place] [address], [place] [address] Dec, [facility] [address] [id number] [address] [place] [address], [place] [address] Dec, [facility] [address] [id number] [address] [place] [address], [place] [address] Dec, [facility] [address] [id number] [address] [place] [address], [place] [address] Dec, [facility] [address] [id number] [facility] [address] Dec, [facility] [address] [id number] [address] [place] [address], [place] [address] Dec, [facility] [address] [id number] [address] [place] [address], [place] [address] Dec, [facility] [address] [id number] [address] [place] [address], [place] [address] Nov, [facility] [address] [id number] [address] [place] [address], [place] [address] Nov, [facility] [address] [id number] [address] [place] [address], [place] [address] Nov, [facility] [address] [id number] [address] [place] [address], [place] [address] Nov, [facility] [address] [id number] [address] [place] [address], [place] [address] Nov, [facility] [address] [id number] [address] [place] [address], [place] [address] Nov, [facility] [address] [id number] [address] [place] [address], [place] [address] Nov, [facility] [address] [id number] [address] [place] [address], [place] [address] Nov, [facility] [address] [id number] [address] [place] [address], [place] [address] Oct, [facility] [address] [id number] [address] [place] [address], [place] [address] Oct, [facility] [address] [id number] [address] [place] [address], [place] [address] Oct, [facility] [address] [id number] [address] [place] [address], [place] [address] Oct, [facility] [address] [id number] [address] [place] [address], [place] [address] Oct, [facility] [address] [id number] [address] [place] [address], [place] [address] Oct, [facility] [address] [id number] [address] [place] [address], [place] [address] Oct, [facility] [address] [id number] [address] [place] [address], [place] [address] 20 Oct, 2012 [facility] [address] [id number] [address] [place] [address], [place] [address] 19 Oct, 2012 [facility] [address] [id number] [address] [place] [address], [place] [address] 18 Oct, 2012 [facility] [address] [id number] [address] [place] [address], [place] [address] 17 Oct, 2012 [facility] [address] [id number] [address] [place] [address], [place] [address] 14 Oct, 2012 [facility] [address] [id number] [address] [place] [address], [place] [address] 07 Oct, 2012 [facility] [address] [id number] [address] [place] [address], [place] [address] 30 Sep, 2012 [facility] [address] [id number] [address] [place] [address], [place] [address] September, [facility] [address] [id number] [address] [place] [address], [place] [address] September, [facility] [address] [id number] [address] [place] [address], [place] [address] 25 Aug, 2012 [facility] [address] [id number] [address] [place] [address], [place] [address] 24 Aug, 2012 [facility] [address] [id number] [address] [place] [address], [place] [address] 18 Aug, 2012 [facility] [address] [id number] [address] [place] [address], [place] [address] 18 Aug, 2012 [facility] [address] [id number] [address] [place] [address], [place] [address] 18 Aug, 2012 [facility] [address] [id number] [address] [place] [address], [place] [address] 08 Aug, 2012 [facility] [address] [id number] [address] [place] [address], [place] [address] 05 Aug, 2012 [facility] [address] [id number] [address] [place] [address], [place] [address] Jul, [facility] [address] [id number] [address] [place] [address], [place] [address] Jul, [facility] [address] [id number] [address] [place] [address], [place] [address] Jul, [facility] [address] [id number] [address] [place] [address], [place] [address] Jul, [facility] [address] [id number] [address] [place] [address], [place] [address] Jul, [facility] [address] [id number] [address] [place] [address], [place] [address] Jul, [facility] [address] [id number] [address] [place] [address], [place] [address] Jul, [facility] [address] [id number] [address] [place], [place] [address], [place] [address] Jul, [facility] [address] [id number] [address] [place] [address], [place] [address] Jul, [facility] [address] [id number] [address] [place] [address], [place] [address] Jul, [facility] [address] [id number] [address] [place] [address], [place] [address] Jul, [facility] [address] [id number] [address] [place] [address], [place] [address] 06 Jul, 2012 [facility] [address] [id number] [address] [place] [address], [place] [address] Jul, [facility] [address] [id number] [address] [place] [address], [place] [address] Jun, [facility] [address] [id number] [address] [place] [address], [place] [address] Jun, [facility] [address] [id number] [address] [place] [address], [place] [address] Jun, [facility] [address] [id number] [address] [place] [address], [place] [address] 17 Jun, 2012 [facility] [address] [id number] [address] [place] [address], [place] [address] 15 Jun, 2012 [facility] [address] [id number] [address] [place] [address], [place] [address] Jun, [facility] [address] [id number] [address] [place] [address], [place] [address] Jun, [facility] [address] [id number] [address] [place] [address], [place] [address] May, [facility] [address] [id number] [address] [place] [address], [place] [address] May, [facility] [address] [id number] [address] [place] [address], [place] [address] May, [facility] [address] [id number] [address] [place] [address], [place] [address] May, [facility] [address] [id number] [address] [place] [address], [place] [address] May, [facility] [address] [id number] [address] [place] [address], [place] [address] May, [facility] [address] [id number] [address] [place] [address], [place] [address] May, [facility] [address] [id number] [address] [place] [address], [place] [address] May, [facility] [address] [id number] [address] [place] [address], [place] [address] May, [facility] [address] [id number] [address] [place] [address], [place] [address] May, [facility] [address] [id number] [address] [place] [address], [place] [address] Apr, [facility] [address] [id number] [address] [place] [address], [place] [address] Apr, [facility] [address] [id number] [address] [place] [address], [place] [address] Apr, [facility] [address] [id number] [address] [place] [address], [place] [address] Apr, [facility] [address] [id number] [address] [place] [address], [place] [address] Apr, [facility] [address] [id number] [address] [place] [address], [place] [address] Apr, [facility] [address] [id number] [address] [place] [address], [place] [address] Apr, [facility] [address] [id number] [address] [place] [address], [place] [address] Apr, [facility] [address] [id number] [address] [place] [address], [place] [address] Apr, [facility] [address] [id number] [address] [place] [address], [place] [address] Apr, [facility] [address] [id number] [address] [place] [address], [place] [address] Apr, [facility] [address] [id number] [address] [place] [address], [place] [address] Apr, [facility] [address] [id number] [address] [place] [address], [place] [address] Mar, [facility] [address] [id number] [address] [place] [address], [place] [address] Mar, [facility] [address] [id number] [address] [place] [address], [place] [address] Mar, 2011 [facility] [address] [id number] [address] [place] [address], [place] [address] Mar, 2011 [facility] [address] [id number] [address] [place] [address], [place] [address] Mar, 2011 [facility] [address] [id number] [address] [place] [address], [place] [address] Mar, 2011 [facility] [address] [id number] [address] [place] [address], [place] [address] Mar, [facility] [address] [id number] [address] [place] [address], [place] [address] Mar, [facility] [address] [id number] [address] [place] [address], [place] [address] Mar, [facility] [address] [id number] [address] [place] [address], [place] [address] Mar, [facility] [address] [id number] [address] [place] [address], [place] [address] Mar, [facility] [address] [id number] [address] [place] [address] Mar, [facility] [address] [id number] [address] [place] [address] Mar, [facility] [address] [id number] [address] [place] [address] Mar, [facility] [address] [id number] [address] [place] [address], [place] [address] Mar, [facility] [address] [id number] [address] [place] [address], [place] [address] Mar, [facility] [address] [id number] [address] [place] [address] Jan, [facility] [address] [id number] [address] [place] [address] 24 Jan, 2011 [facility] [address] [id number] [address] [place] [address], [place] [address] 22 Jan, 2011 [facility] [address] [id number] [address] [place] [address], [place] [address] 22 Jan, 2011 [facility] [address] [id number] [address] [place] [address], [place] [address] 21 Jan, 2011 [facility] [address] [id number] [address] [place] [address], [place] [address] 18 Jan, 2011 [facility] [address] [id number] [address] [place] [address], [place] [address] 14 Jan, 2012 [facility] [address] [id number] [address] [place] [address], [place] [address] 07 Jan, 2012 [facility] [address] [id number] [address] [place] [address], [place] [address] 15 Dec, 2011 [facility] [address] [id number] [address] [place] [address], [place] [address] 10 Dec, 2011 [facility] [address] [id number] [address] [place] [address], [place] [address] Dec, [facility] [address] [id number] [address] [place] [address], [place] [address] Dec, [facility] [address] [id number] [address] [place] [address], [place] [address] Dec, [facility] [address] [id number] [address] [place] [address], [place] [address] Dec, [facility] [address] [id number] [address] [place] [address], [place] [address] Dec, [facility] [address] [id number] [address] [place] [address], [place] [address] Nov, [facility] [address] [id number] [address] [place] [address], [place] [address] Oct, [facility] [address] [id number] [address] [place] [address], [place] [address] 05 Aug, 2011 [facility] [address] [id number] [address] [place] [address], [place] [address] 22 Jul, 2011 [facility] [address] [id number] [address] [place] [address], [place] [address] 19 Jul, 2011 [facility] [address] [id number] [address] [place] [address], [place] [address] 16 Jul, 2011 [facility] [address] [id number] [address] [place] [address], [place] [address] 14 Jul, 2011 [facility] [address] [id number] [address] [place] [address], [place] [address] 07 Jul, 2011 [facility] [address] [id number] [address] [place] [address], [place] [address] 02 Jul, 2011 [facility] [address] [id number] [address] [place] [address], [place] [address] 21 Jul, 2011 [facility] [address] [id number] [address] [place] [address], [place] [address] 15 Jul, 2011 [facility] [address] [id number] [address] [place] [address], [place] [address] 13 Jul, 2011 [facility] [address] [id number] [address] [place] [address], [place] [address] 03 Jul, 2011 [facility] [address] [id number] [address] [place] [address], [place] [address] 02 Jul, 2011 [facility] [address] [id number] [address] [place] [address], [place] [address] 24 Jun, 2011 [facility] [address] [id number] [address] [place] [address], [place] [address] 24 Jun, 2011 [facility] [address] [id number] [address] [place] [address], [place] [address] 13 Jun, 2011 [facility] [address] [id number] [address] [place] [address], [place] [address] Jun, [facility] [address] [id number] [address] [place] [address], [place] [address] Jun, [facility] [address] [id number] [address] [place] [address], [place] [address] Jun, [facility] [address] [id number] [address] [place] [address], [place] [address] Jun, [facility] [address] [id number] [address] [place] [address], [place] [address] May, [facility] [address] [id number] [address] [place] [address], [place] [address] May, [facility] [address] [id number] [address] [place] [address], [place] [address] May, [facility] [address] [id number] [address] [place] [address], [place] [address] May, [facility] [address] [id number] [address] [place] [address], [place] [address] May, [facility] [address] [id number] [address] [place] [address], [place] [address] May, [facility] [address] [id number] [address] [place] [address], [place] [address] May, [facility] [address] [id number] [address] [place] [address], [place] [address] May, [facility] [address] [id number] [address] [place] [address], [place] [address] May, [facility] [address] [id number] [address] [place] [address], [place] [address] May, [facility] [address] [id number] [address] [place] [address], [place] [address] 15 Apr, 2011 [facility] [address] [id number] [address] [place] [address], [place] [address] 15 Apr, 2011 [facility] [address] [id number] [address] [place] [address] Apr, [facility] [address] [facility] [id number] [address] [place] [address] Apr, [facility] [address] [facility] [id number] [address] [place] [address] Mar, [facility] [address] [facility] [id number] [address] [place] [address] Mar, [facility] [address] [facility] [id number] [address] [place] [address] Mar, [facility] [address] [facility] [id number] [address] [place] [address] Mar, IMMUNIZATIONS Vaccine Route Administration Date Status influenza IIV3 (history) Unknown Feb 28, 2013 Adminis tered PRIVATE PPSV23 (PNEUMOVAX) Unknown Feb 28, 2013 Admin istered SOCIAL HISTORY Never Assessed REASON FOR VISIT PLAN OF CARE VITAL SIGNS MEDICATIONS Unknown Medications RESULTS No Results PROCEDURES Procedure Date Ordered Result Body Site COMPLETE CBC W/AUTO DIFF WBC Feb 28, 2013 ASSAY THYROID STIM HORMONE Feb 28, 2013 GLYCATED HEMOGLOBIN TEST Feb 28, 2013 LIPID PANEL Feb 28, 2013 COMPREHEN METABOLIC PANEL Feb 28, 2013 VENIPUNCT, ROUTINE* Feb 28, 2013 INSTRUCTIONS MEDICATIONS ADMINISTERED No Known Medications [...]
--- OUTSIDE RECORDS SUMMARY | 2020-01-03 17:55 | XMS REPORT ---
Author Author Pattie VIEIRA Organization [facility] Address [address] [place] [address] Care Team Providers Care Senior Environmental Practice Leader Name Role Phone REYNALDO VIEIRA Unavailable PROBLEMS Type Condition ICD9-CM Code XAM84-LP Code Onset Dates Condition S tatus SNOMED Code Problem FRANCIS (generalized anxiety disorder) F41.1 Active 76794855 Problem Thoracic disc herniation M51.24 Activ e 667809355 Problem Major depressive disorder in partial remission F32 .4 Active 29250802 Problem Seizure disorder G40.909 Active 128 685446 Problem Conversion disorder (or hysterical neurosis, conversion ty pe) F44.9 Active 08740836 Problem Constipation, unspecified constipation type K59.00 Active 83236827 Problem Mild episode of recurrent major depressive disorder F33.0 Active 335473908 Problem Restless leg syndrome G25.81 Active 57064367 Problem Nonadherence to medication Z91.14 Act vivian 052181075 Problem Slow transit constipation K59.01 Acti ve 14870773 Problem Atrophic vaginitis N95.2 Active 5 1502224 Problem Paroxysmal tachycardia I47.9 Active 43288162 Problem Other chronic pain G89.29 Active 8 9912415 Problem Mild intermittent asthma without complication J45. 20 Active 547476419 Problem Obesity (BMI 30.0-34.9) E66.9 Active [id number] Problem High blood pressure I10 Active 96493275 ALLERGIES No Information ENCOUNTERS Encounter Location Date Diagnosis [facility] [address] [facility] [id number] [address] [place] [address] 03 Nov, 2019 [place] [id number] [facility] [address] [id number] [id number] 26 Oct, 2019 Breast cancer screening Z12.[address] [id number] [place] [address] 08 Oct, 2019 Breast cancer screening Z12. 39 [facility] [address] [id number] [address] [place] [address] Oct, [facility] [address] [id number] [address] [place] [address] Oct, [facility] [address] [id number] [address] [place] [address] September, [facility] [address] [id number] [address] [place] [address] September, [facility] [address] [id number] [address] [place] [address] September, Well woman exam with routine gynecological exam Z01.419 and Atrophic vaginitis N95.2 [facility] [address] [id number] [address] [place] [address] September, Major depressive disorder in partial remission F32.4 ; FRANCIS (generalized anxiety disorder) F41.1 ; Restless leg syndrome G25.81 and Nonadherence to medication Z91.14 [facility] [address] [id number] [address] [place] [address] September, [facility] [address] [id number] [address] [place] [address] Aug, [facility] [address] [facility] [id number] [address] [place] [id number] Aug, Dental examination Z01.20 [facility] [address] [id number] [address] [place] [id number] Aug, Dental examination Z01.20 an d Caries K02.9 [facility] [address] [id number] [address] [place] [address] Aug, [facility] [address] [id number] [address] [place] [address] Aug, [facility] [address] [id number] [address] [place] [address] Aug, Other chronic pain G89.29 an d Back muscle spasm M62.830 [facility] [address] [id number] [address] [place] [address] Aug, [facility] [address] [id number] [address] [place] [address] Aug, Major depressive disorder in partial remission F32.4 ; FRANCIS (generalized anxiety disorder) F41.1 ; Restless leg syndrome G25.81 and Nonadherence to medication Z91.14 [facility] [address] [id number] [address] [place] [address] Aug, [facility] [address] [id number] [address] [place] [address] Jul, [facility] [address] [id number] [address] [place] [address] Jul, [facility] [address] [id number] [address] [place] [address] Jul, Major depressive disorder in partial remission F32.4 ; FRANCIS (generalized anxiety disorder) F41.1 ; Restless leg syndrome G25.81 and High blood pressure I10 [facility] [address] [id number] [address] [place] [address] 17 Jul, 2019 [facility] [address] [id number] [address] [place] [address] Jul, [facility] [address] [id number] [address] [place] [address] Jun, [facility] [address] [id number] [address] [place] [address] May, [facility] [address] [id number] [address] [place] [address] Apr, [facility] [address] [id number] [address] [place] [address] Apr, [facility] [address] [id number] [address] [place] [address] Mar, [facility] [address] [id number] [address] [place] [address] Mar, Major depressive disorder in partial remission F32.4 ; FRANCIS (generalized anxiety disorder) F41.1 and Restless leg syndrome G25.81 [facility] [address] [id number] [address] [place] [address] Mar, Obesity (BMI 30.0-34.9) E66. 9 [facility] [address] [id number] [address] [place] [address] Jan, [facility] [address] [id number] [address] [place] [address] Jan, Burn T30.0 [facility] [address] [id number] [address] [place] [address] Dec, [facility] [address] [facility] [id number] [address] [place] [address] Nov, [facility] [address] [id number] [address] [place] [address] Nov, [facility] [address] [place] [id number] Nov, Dental examination Z01.20 [facility] [address] [id number] [address] [place] [address] September, [facility] [address] [id number] [place] [id number] September, Decay, teeth K02.9 and Denta l examination Z01.20 [facility] [address] [id number] [address] [place] [id number] September, Dental examination Z01.20 [facility] [address] [facility] [id number] [address] [place] [address] September, FRANCIS (generalized anxiety dis order) F41.1 ; Major depressive disorder in partial remission F32.4 and Restless leg syndrome G25.81 [facility] [address] [facility] [id number] [address] [place] [address] Aug, [facility] [address] [facility] [id number] [address] [place] [address] Jul, [facility] [address] [facility] [id number] [address] [place] [address] Jul, Encounter to discuss test re sults Z71.2 [place] [address] [place] [id number] [place] [address] Jul, Pelvic pain R10.2 ; Screenin g for breast cancer Z12.31 and Obesity (BMI 30.0-34.9) E66.9 [place] [address] [facility] [id number] [address] [place] [address] Jul, Mild intermittent asthma wit hout complication J45.20 [place] [address] [place] [id number] [place] [address] Jul, Major depressive disorder in partial remission F32.4 and FRANCIS (generalized anxiety disorder) F41.1 [place] [address] [place] [id number] [address] [place] [address] Jul, [facility] [address] [place] [id number] [address] [place] [address] Jun, [facility] [address] [place] [id number] [address] [place] [address] May, Major depressive disorder in partial remission F32.4 ; FRANCIS (generalized anxiety disorder) F41.1 and Restless leg syndrome G25.81 [facility] [address] [facility] [id number] [address] [place] [address] Apr, [place] [address] [facility] [id number] [address] [place] [address] Mar, [facility] [address] [facility] [id number] [address] [place] [address] Jan, Pain in thoracic spine M54.6 and Other chronic pain G89.29 [facility] [address] [id number] [address] [place] [address] 14 Jan, 2018 [facility] [address] [id number] [address] [place] [address] 11 Jan, 2018 Mild episode of recurrent ma saray depressive disorder F33.0 ; FRANCIS (generalized anxiety disorder) F41.1 and Restless leg syndrome G25.81 [facility] [address] [id number] [address] [place] [address] Dec, [facility] [address] [id number] [address] [place] [address] Dec, Hospital discharge follow-up Z09 [facility] [address] [id number] [address] [place] [address] Nov, [facility] [address] [id number] [address] [place] [address] Nov, [facility] [address] [id number] [address] [place] [address] September, [facility] [address] [id number] [address] [place] [address] September, [facility] [address] [id number] [address] [place] [address] September, Major depressive disorder in partial remission F32.4 ; FRANCIS (generalized anxiety disorder) F41.1 and Restless leg syndrome G25.81 [facility] [address] [id number] [address] [place] [address] September, [facility] [address] [id number] [address] [place] [address] Jul, [facility] [address] [facility] [id number] [address] [place] [address] Jul, Dorsalgia, unspecified M54.9 [facility] [address] [id number] [address] [place] [address] Jul, Mild episode of recurrent ma saray depressive disorder F33.0 and FRANCIS (generalized anxiety disorder) F41.1 [facility] [address] [id number] [address] [place] [address] May, [facility] [address] [facility] [id number] [address] [place] [address] May, Dysuria R30.0 and Acute cyst itis with hematuria N30.01 [facility] [address] [id number] [address] [place] [address] Apr, [facility] [address] [facility] [id number] [address] [place] [address] Apr, Major depressive disorder in partial remission F32.4 and FRANCIS (generalized anxiety disorder) F41.1 [place] [address] [place] [id number] [address] [place] [address] Mar, Paroxysmal tachycardia I47.9 [place] [address] [id number] [address] [place] [address] Mar, Paroxysmal tachycardia I47.9 and Pain of left lower extremity M79.605 [place] [address] [facility] [id number] [address] [place] [address] Mar, FRANCIS (generalized anxiety dis order) F41.1 and Major depressive disorder in partial remission F32.4 [place] [address] [id number] [address] [place] [address] Jan, [facility] [address] [facility] [id number] [address] [place] [address] Jan, [facility] [address] [id number] [address] [place] [address] Jan, [facility] [address] [facility] [id number] [address] [place] [address] Dec, Constipation, unspecified co nstipation type K59.00 [facility] [address] [place] [id number] [address] [place] [address] Dec, [facility] [address] [id number] [address] [place] [address] Nov, [facility] [address] [facility] [id number] [address] [place] [address] Nov, Major depressive disorder in partial remission F32.4 and FRANCIS (generalized anxiety disorder) F41.1 [facility] [address] [facility] [id number] [address] [place] [address] Oct, Abdominal pain R10.9 and Slo w transit constipation K59.01 [facility] [address] [facility] [id number] [address] [place] [address] Aug, Major depressive disorder in partial remission F32.4 ; FRANCIS (generalized anxiety disorder) F41.1 ; Conversion disorder (or hysterical neurosis, conversion type) F44.9 ; Dorsalgia, unspecified M54.9 and Long-term use of high-risk medication Z79.899 [place] [address] [facility] [id number] [address] [place] [address] Aug, [place] [address] [facility] [id number] [address] [place] [address] Jul, Paroxysmal tachycardia I47.9 [facility] [address] [facility] [id number] [address] [place] [address] 10 Jul, 2016 Paroxysmal tachycardia I47.9 [place] [address] [facility] [id number] [address] [place] [address] Jun, [place] [address] [facility] [id number] [address] [place] [address] Jun, Major depressive disorder in partial remission F32.4 ; FRANCIS (generalized anxiety disorder) F41.1 and Conversion disorder (or hysterical neurosis, conversion type) F44.9 [facility] [address] [id number] [address] [place] [address] May, Pelvic pain R10.2 [facility] [address] [facility] [id number] [address] [place] [address] 30 Apr, 2016 Gastroenteritis K52.9 [facility] [address] [id number] [address] [place] [address] Apr, Blood in urine R31.9 and Acu te cystitis with hematuria N30.01 [facility] [address] [id number] [address] [place] [address] Apr, Major depressive disorder in partial remission F32.4 ; FRANCIS (generalized anxiety disorder) F41.1 and Conversion disorder (or hysterical neurosis, conversion type) F44.9 [facility] [address] [id number] [address] [place] [address] Apr, [facility] [address] [id number] [address] [place] [address] Apr, Abnormal mammogram R92.8 [facility] [address] [id number] [address] [place] [address] Mar, [facility] [address] [id number] [address] [place] [address] Mar, Gastroenteritis K52.9 and Se izure disorder G40.909 [facility] [address] [id number] [address] [place] [address] Dec, [facility] [address] [id number] [address] [place] [address] Dec, Other headache syndrome G44. 89 [facility] [address] [id number] [address] [place] [address] Dec, [facility] [address] [id number] [address] [place] [address] Dec, Thoracic disc herniation M51 .24 [facility] [address] [id number] [address] [place] [address] Dec, [facility] [address] [facility] [id number] [address] [place] [address] Nov, Major depressive disorder in partial remission F32.4 and FRANCIS (generalized anxiety disorder) F41.1 [facility] [address] [id number] [address] [place] [address], [place] [address] Nov, [facility] [address] [id number] [address] [place] [address], [place] [address] Nov, Dorsalgia, unspecified M54.9 [facility] [address] [id number] [address] [place] [address], [place] [address] Oct, [facility] [address] [id number] [address] [place] [address] September, [facility] [address] [id number] [address] [place] [address], [place] [address] Aug, [facility] [address] [id number] [address] [place] [address] Aug, Major depressive disorder in partial remission F32.4 and FRANCIS (generalized anxiety disorder) F41.1 [facility] [address] [id number] [address] [place] [address] Aug, [facility] [address] [id number] [address] [place] [address] Jul, Abnormal mammogram R92.8 [facility] [address] [id number] [address] [place] [address] Jul, [facility] [address] [id number] [address] [place] [address] Jul, [facility] [address] [id number] [address] [place] [address] Jul, [facility] [address] [id number] [address] [place] [address], [place] [address] Jul, [facility] [address] [id number] [address] [place] [address] Jul, [facility] [address] [id number] [address] [place] [address] Jul, [facility] [address] [id number] [address] [place] [address] Jun, Major depressive disorder in partial remission F32.4 and FRANCIS (generalized anxiety disorder) F41.1 [facility] [address] [id number] [address] [place] [address] Jun, [facility] [address] [id number] [address] [place] [address] May, [facility] [address] [id number] [address] [place] [address] Apr, [facility] [address] [id number] [address] [place] [address] Mar, Major depressive disorder, r ecurrent episode, moderate F33.1 ; PTSD (post-traumatic stress disorder) F43.10 and FRANCIS (generalized anxiety disorder) F41.1 [facility] [address] [id number] [address] [place] [address] Mar, [facility] [address] [id number] [address] [place] [address] Mar, [facility] [address] [id number] [address] [place] [address] Mar, [facility] [address] [id number] [address] [place] [address] Mar, [facility] [address] [id number] [address] [place] [address] 23 Jan, 2015 [facility] [address] [id number] [address] [place] [address] 15 Jan, 2015 [facility] [address] [id number] [address] [place] [address] 15 Jan, 2015 [facility] [address] [id number] [address] [place] [address] 14 Jan, 2015 Thoracic disc herniation 722 .11 [facility] [address] [id number] [address] [place] [address] Dec, [facility] [address] [id number] [address] [place] [address] Dec, [facility] [address] [id number] [address] [place] [address] Dec, [facility] [address] [id number] [address] [place] [address] Nov, [facility] [address] [id number] [address] [place] [address] Nov, Generalized anxiety disorder 300.02 ; Posttraumatic stress disorder 309.81 and Major depressive disorder, recurrent episode, moderate 296.32 [facility] [address] [id number] [address] [place] [address] Nov, [facility] [address] [id number] [address] [place] [address] Nov, [facility] [address] [id number] [address] [place] [id number] Oct, [facility] [address] [id number] [address] [place] [id number] Oct, [facility] [address] [id number] [address] [place] [phone] Oct, [facility] [address] [id number] [address] [place] [phone] September, [facility] [address] [id number] [address] [place] [phone] September, [facility] [address] [id number] [address] [place] [id number] Aug, [facility] [address] [id number] [address] [place] [phone] Aug, [facility] [address] [id number] [address] [place] [id number] Jul, [facility] [address] [id number] [address] [place] [address], [place] [id number] 25 Jul, 2014 [facility] [address] [id number] [address] [place] [address], [place] [id number] Jul, [facility] [address] [id number] [address] [place] [address], [place] [id number] 17 Jul, 2014 [facility] [address] [id number] [address] [place] [address], [place] [id number] 16 Jul, 2014 [facility] [address] [id number] [address] [place] [address], [place] [id number] 16 Jul, 2014 [facility] [address] [id number] [address] [place] [address], [place] [id number] Jul, [facility] [address] [id number] [address] [place] [address], [place] [address] Jul, [facility] [address] [id number] [address] [place] [address], [place] [id number] Jul, [facility] [address] [id number] [address] [place] [address], [place] [address] Jul, [facility] [address] [id number] [address] [place] [address], [place] [id number] Jun, [facility] [address] [id number] [address] [place] [address], [place] [address] Jun, [facility] [address] [id number] [address] [place] [address], [place] [id number] Jun, [facility] [address] [id number] [address] [place] [address], [place] [id number] May, [facility] [address] [address] [id number] [address] [place] [address], [place] [address] Apr, [facility] [address] [id number] [address] [place] [address], [place] [address] Apr, [facility] [address] [id number] [address] [place] [address], [place] [address] Apr, [facility] [address] [id number] [address] [place] [address], [place] [address] Apr, [facility] [address] [id number] [address] [place] [address], [place] [address] Apr, [facility] [address] [id number] [address] [place] [address], [place] [address] Apr, [facility] [address] [id number] [address] [place] [address], [place] [address] Apr, [facility] [address] [id number] [address] [place] [address], [place] [address] Apr, [facility] [address] [id number] [address] [place] [address], [place] [address] Mar, [facility] [address] [id number] [address] [place] [address], [place] [address] Mar, [facility] [address] [id number] [address] [place] [address], [place] [address] Mar, [facility] [address] [id number] [address] [place] [address], [place] [address] Mar, [facility] [address] [id number] [address] [place] [address], [place] [address] Mar, [facility] [address] [id number] [address] [place] [address], [place] [address] Mar, [facility] [address] [id number] [address] [place] [address] Mar, [facility] [address] [id number] [address] [place] [address], [place] [address] Mar, [facility] [address] [id number] [address] [place] [address], [place] [address] Mar, [facility] [address] [id number] [address] [place] [address], [place] [address] Mar, [facility] [address] [id number] [address] [place] [address], [place] [address] 17 Mar, 2013 [facility] [address] [id number] [address] [place] [address], [place] [address] 14 Mar, 2013 [facility] [address] [id number] [address] [place] [address], [place] [address] 14 Mar, 2013 [facility] [address] [id number] [address] [place] [address], [place] [address] 07 Mar, 2013 [facility] [address] [id number] [address] [place] [address], [place] [address] 07 Mar, 2013 [facility] [address] [id number] [address] [place] [address], [place] [address] 06 Mar, 2013 [facility] [address] [id number] [address] [place] [address], [place] [address] 06 Mar, 2013 [facility] [address] [id number] [address] [place] [address], [place] [address] 19 Sep, 2013 [facility] [address] [id number] [address] [place] [address], [place] [address] 19 Sep, 2013 [facility] [address] [id number] [address] [place] [address], [place] [address] 09 Sep, 2013 [facility] [address] [id number] [address] [place] [address], [place] [address] 09 Sep, 2013 [facility] [address] [id number] [address] [place] [address], [place] [address] 05 Sep, 2013 [facility] [address] [id number] [address] [place] [address], [place] [address] 05 Sep, 2013 [facility] [address] [id number] [address] [place] [address], [place] [address] 05 Sep, 2013 [facility] [address] [id number] [address] [place] [address], [place] [address] 05 Sep, 2013 [facility] [address] [id number] [address] [place] [address], [place] [address] Jan, [facility] [address] [id number] [address] [place] [address], [place] [address] Jan, [facility] [address] [id number] [address] [place] [address], [place] [address] Jan, [facility] [address] [id number] [address] [place] [address], [place] [address] Jan, [facility] [address] [id number] [address] [place] [address], [place] [address] Jan, [facility] [address] [id number] [address] [place] [address], [place] [address] Dec, [facility] [address] [id number] [address] [place] [address], [place] [address] Dec, [facility] [address] [id number] [address] [place] [address], [place] [address] Dec, [facility] [address] [id number] [address] [place] [address], [place] [address] Dec, [facility] [address] [id number] [address] [place] [address], [place] [address] Dec, [facility] [address] [id number] [address] [place] [address], [place] [address] Dec, [facility] [place] [id number] Dec, [facility] [place] [id number] Dec, [facility] [address] [id number] [address] [place] [address], [place] [address] Dec, [facility] [address] [id number] [address] [place] [address], [place] [address] Dec, [facility] [address] [id number] [address] [place] [address], [place] [address] Dec, [facility] [address] [id number] [address] [place] [address], [place] [address] Dec, [facility] [address] [id number] [facility] [place] [address] Nov, [facility] [address] [id number] [facility] [place] [address] Nov, [facility] [address] [id number] [facility] [place] [address] Nov, [facility] [address] [id number] [facility] [place] [address] Nov, [facility] [address] [id number] [address] [place] [address], [place] [address] Nov, [facility] [address] [id number] [address] [place] [address], [place] [address] Nov, [facility] [address] [id number] [address] [place] [address], [place] [address] Nov, [facility] [address] [id number] [address] [place] [address], [place] [address] Nov, [facility] [address] [id number] [address] [place] [address], [place] [address] Nov, [facility] [address] [id number] [address] [place] [address], [place] [address] Nov, [facility] [address] [id number] [address] [place] [address], [place] [address] Nov, [facility] [address] [id number] [address] [place] [address], [place] [address] Nov, [facility] [address] [id number] [address] [place] [address], [place] [address] Nov, [facility] [address] [id number] [address] [place] [address], [place] [address] Oct, [facility] [address] [id number] [address] [place] [address], [place] [address] Oct, [facility] [address] [id number] [address] [place] [address], [place] [address] Oct, [facility] [address] [id number] [facility] [place] [address] Oct, [facility] [address] [id number] [address] [place] [address], [place] [address] Oct, [facility] [address] [id number] [address] [place] [address], [place] [address] Oct, [facility] [address] [id number] [address] [place] [address], [place] [address] Oct, [facility] [address] [id number] [address] [place] [address], [place] [address] Oct, [facility] [address] [id number] [address] [place] [address], [place] [address] Oct, [facility] [address] [id number] [address] [place] [address], [place] [address] Oct, [facility] [address] [id number] [address] [place] [address], [place] [address] Oct, [facility] [address] [id number] [address] [place] [address], [place] [address] Oct, [facility] [address] [id number] [address] [place] [address], [place] [address] September, [facility] [address] [id number] [address] [place] [address], [place] [address] September, [facility] [address] [id number] [address] [place] [address], [place] [address] September, [facility] [address] [id number] [address] [place] [address], [place] [address] September, [facility] [address] [id number] [address] [place] [address], [place] [address] Aug, [facility] [address] [id number] [address] [place] [address], [place] [address] Aug, [facility] [address] [id number] [facility] [place] [address] 22 Aug, 2013 [facility] [address] [id number] [address] [place] [address], [place] [address] 22 Aug, 2013 [facility] [address] [id number] [address] [place] [address], [place] [address] 18 Aug, 2013 [facility] [address] [id number] [address] [place] [address], [place] [address] Aug, [facility] [address] [id number] [address] [place] [address], [place] [address] Aug, [facility] [address] [id number] [address] [place] [address], [place] [address] Jul, [facility] [address] [id number] [address] [place] [address], [place] [address] Jul, [facility] [address] [id number] [address] [place] [address], [place] [address] Jul, [facility] [address] [id number] [address] [place] [address], [place] [address] 28 Jul, 2013 [facility] [address] [id number] [address] [place] [address], [place] [address] Jul, [facility] [address] [id number] [address] [place] [address], [place] [address] Jul, [facility] [address] [id number] [address] [place] [address], [place] [address] 18 Jul, 2013 [facility] [address] [id number] [address] [place] [address], [place] [address] Jul, [facility] [address] [id number] [address] [place] [address], [place] [address] 18 Jul, 2013 [facility] [address] [id number] [address] [place] [address], [place] [address] 18 Jul, 2013 [facility] [address] [id number] [address] [place] [address], [place] [address] Jul, [facility] [address] [id number] [facility] [place] [address] 18 Jul, 2013 [facility] [address] [id number] [address] [place] [address], [place] [address] 14 Jul, 2013 [facility] [address] [id number] [address] [place] [address], [place] [address] 14 Jul, 2013 [facility] [address] [id number] [address] [place] [address], [place] [address] Jul, [facility] [address] [id number] [address] [place] [address], [place] [address] Jul, [facility] [address] [id number] [address] [place] [address], [place] [address] Jul, [facility] [address] [id number] [address] [place] [address], [place] [address] Jul, [facility] [address] [id number] [address] [place] [address], [place] [address] Jun, [facility] [address] [id number] [address] [place] [address], [place] [address] 31 Jun, 2013 [facility] [address] [id number] [address] [place] [address], [place] [address] 15 Jun, 2013 [facility] [address] [id number] [address] [place] [address], [place] [address] 15 Jun, 2013 [facility] [address] [id number] [address] [place] [address], [place] [address] 14 Jun, 2013 [facility] [address] [id number] [address] [place] [address], [place] [address] 14 Jun, 2013 [facility] [address] [id number] [address] [place] [address], [place] [address] 14 Jun, 2013 [facility] [address] [id number] [address] [place] [address], [place] [address] 14 Jun, 2013 [facility] [address] [id number] [address] [place] [address], [place] [address] 14 Jun, 2013 [facility] [address] [id number] [address] [place] [address], [place] [address] 14 Jun, 2013 [facility] [address] [id number] [address] [place] [address], [place] [address] 27 May, 2013 [facility] [address] [id number] [address] [place] [address], [place] [address] 27 May, 2013 [facility] [address] [id number] [address] [place] [address], [place] [address] 26 May, 2013 [facility] [address] [id number] [address] [place] [address], [place] [address] 19 May, 2013 [facility] [address] [id number] [address] [place] [address], [place] [address] 19 May, 2013 [facility] [address] [id number] [address] [place] [address], [place] [address] 16 May, 2013 [facility] [address] [id number] [address] [place] [address], [place] [address] 16 May, 2013 [facility] [address] [id number] [address] [place] [address], [place] [address] 16 May, 2013 [facility] [address] [id number] [address] [place] [address], [place] [address] 16 May, 2013 [facility] [address] [id number] [address] [place] [address], [place] [address] 13 May, 2013 [facility] [address] [id number] [address] [place] [address], [place] [address] 13 May, 2013 [facility] [address] [id number] [address] [place] [address], [place] [address] 11 May, 2013 [facility] [address] [id number] [address] [place] [address], [place] [address] 20 Apr, 2013 [facility] [address] [id number] [address] [place] [address], [place] [address] Apr, [facility] [address] [id number] [address] [place] [address], [place] [address] 18 Apr, 2013 [facility] [address] [id number] [address] [place] [address], [place] [address] Apr, [facility] [address] [id number] [address] [place] [address], [place] [address] Apr, [facility] [address] [id number] [address] [place] [address], [place] [address] Apr, [facility] [address] [id number] [address] [place] [address], [place] [address] 08 Apr, 2013 [facility] [address] [id number] [address] [place] [address], [place] [address] Apr, [facility] [address] [id number] [address] [place] [address], [place] [address] Apr, [facility] [address] [id number] [address] [place] [address] Apr, [facility] [address] [id number] [address] [place] [address], [place] [address] Apr, [facility] [address] [id number] [address] [place] [address] Mar, [facility] [address] [id number] [address] [place] [address] Mar, [facility] [address] [id number] [address] [place] [address] Mar, [facility] [address] [id number] [address] [place] [address] Mar, [facility] [address] [id number] [address] [place] [address] Mar, [facility] [address] [id number] [address] [place] [address] Mar, [facility] [address] [id number] [address] [place] [address] Mar, [facility] [address] [id number] [address] [place] [address], [place] [address] Mar, [facility] [address] [id number] [address] [place] [address], [place] [address] 18 Mar, 2013 [facility] [address] [id number] [address] [place] [address], [place] [address] 15 Mar, 2013 [facility] [address] [id number] [address] [place] [address], [place] [address] 15 Mar, 2013 [facility] [address] [id number] [address] [place] [address], [place] [address] Mar, [facility] [address] [id number] [address] [place] [address], [place] [address] 30 Jan, 2013 [facility] [address] [id number] [address] [place] [address], [place] [address] 25 Jan, 2013 [facility] [address] [id number] [address] [place] [address], [place] [address] 20 Jan, 2013 [facility] [address] [id number] [address] [place] [address], [place] [address] Jan, [facility] [address] [id number] [address] [place] [address], [place] [address] Dec, [facility] [address] [id number] [address] [place] [address], [place] [address] Dec, [facility] [address] [id number] [address] [place] [address], [place] [address] Dec, [facility] [address] [id number] [address] [place] [address], [place] [address] Dec, [facility] [address] [id number] [address] [place] [address], [place] [address] Dec, [facility] [address] [id number] [address] [place] [address], [place] [address] Dec, [facility] [address] [id number] [facility] [place] [address] Dec, [facility] [address] [id number] [address] [place] [address], [place] [address] Dec, [facility] [address] [id number] [address] [place] [address], [place] [address] Dec, [facility] [address] [id number] [address] [place] [address], [place] [address] Nov, [facility] [address] [id number] [address] [place] [address], [place] [address] Nov, [facility] [address] [id number] [address] [place] [address], [place] [address] Nov, [facility] [address] [id number] [address] [place] [address], [place] [address] Nov, [facility] [address] [id number] [address] [place] [address], [place] [address] Nov, [facility] [address] [id number] [address] [place] [address], [place] [address] Nov, [facility] [address] [id number] [address] [place] [address], [place] [address] Nov, [facility] [address] [id number] [address] [place] [address], [place] [address] Nov, [facility] [address] [id number] [address] [place] [address], [place] [address] Oct, [facility] [address] [id number] [address] [place] [address], [place] [address] Oct, [facility] [address] [id number] [address] [place] [address], [place] [address] Oct, [facility] [address] [id number] [address] [place] [address], [place] [address] Oct, [facility] [address] [id number] [address] [place] [address], [place] [address] Oct, [facility] [address] [id number] [address] [place] [address], [place] [address] Oct, [facility] [address] [id number] [address] [place] [address], [place] [address] Oct, [facility] [address] [id number] [address] [place] [address], [place] [address] 20 Oct, 2012 [facility] [address] [id number] [address] [place] [address], [place] [address] 19 Oct, 2012 [facility] [address] [id number] [address] [place] [address], [place] [address] 18 Oct, 2012 [facility] [address] [id number] [address] [place] [address], [place] [address] 17 Oct, 2012 [facility] [address] [id number] [address] [place] [address], [place] [address] 14 Oct, 2012 [facility] [address] [id number] [address] [place] [address], [place] [address] 07 Oct, 2012 [facility] [address] [id number] [address] [place] [address], [place] [address] 30 Sep, 2012 [facility] [address] [id number] [address] [place] [address], [place] [address] September, [facility] [address] [id number] [address] [place] [address], [place] [address] September, [facility] [address] [id number] [address] [place] [address], [place] [address] 25 Aug, 2012 [facility] [address] [id number] [address] [place] [address], [place] [address] 24 Aug, 2012 [facility] [address] [id number] [address] [place] [address], [place] [address] 18 Aug, 2012 [facility] [address] [id number] [address] [place] [address], [place] [address] 18 Aug, 2012 [facility] [address] [id number] [address] [place] [address], [place] [address] 18 Aug, 2012 [facility] [address] [id number] [address] [place] [address], [place] [address] 08 Aug, 2012 [facility] [address] [id number] [address] [place] [address], [place] [address] 05 Aug, 2012 [facility] [address] [id number] [address] [place] [address], [place] [address] Jul, [facility] [address] [id number] [address] [place] [address], [place] [address] Jul, [facility] [address] [id number] [address] [place] [address], [place] [address] Jul, [facility] [address] [id number] [address] [place] [address], [place] [address] Jul, [facility] [address] [id number] [address] [place] [address], [place] [address] Jul, [facility] [address] [id number] [address] [place] [address], [place] [address] Jul, [facility] [address] [id number] [address] [place] [address], [place] [address] Jul, [facility] [address] [id number] [address] [place] [address], [place] [address] Jul, [facility] [address] [id number] [address] [place] [address], [place] [address] Jul, [facility] [address] [id number] [address] [place] [address], [place] [address] Jul, [facility] [address] [id number] [address] [place] [address], [place] [address] Jul, [facility] [address] [id number] [address] [place] [address], [place] [address] 06 Jul, 2012 [facility] [address] [id number] [address] [place] [address], [place] [address] Jul, [facility] [address] [id number] [address] [place] [address], [place] [address] Jun, [facility] [address] [id number] [address] [place] [address], [place] [address] Jun, [facility] [address] [id number] [address] [place] [address], [place] [address] Jun, [facility] [address] [id number] [address] [place] [address], [place] [address] 17 Jun, 2012 [facility] [address] [id number] [address] [place] [address], [place] [address] 15 Jun, 2012 [facility] [address] [id number] [address] [place] [address], [place] [address] Jun, [facility] [address] [id number] [address] [place] [address], [place] [address] Jun, [facility] [address] [id number] [address] [place] [address], [place] [address] May, [facility] [address] [id number] [address] [place] [address], [place] [address] May, [facility] [address] [id number] [address] [place] [address], [place] [address] May, [facility] [address] [id number] [address] [place] [address], [place] [address] May, [facility] [address] [id number] [address] [place] [address], [place] [address] May, [facility] [address] [id number] [address] [place] [address], [place] [address] May, [facility] [address] [id number] [address] [place] [address], [place] [address] May, [facility] [address] [id number] [address] [place] [address], [place] [address] May, [facility] [address] [id number] [address] [place] [address], [place] [address] May, [facility] [address] [id number] [address] [place] [address], [place] [address] May, [facility] [address] [id number] [address] [place] [address], [place] [address] Apr, [facility] [address] [id number] [address] [place] [address], [place] [address] Apr, [facility] [address] [id number] [address] [place] [address], [place] [address] Apr, [facility] [address] [id number] [address] [place] [address], [place] [address] Apr, [facility] [address] [id number] [address] [place] [address], [place] [address] Apr, [facility] [address] [id number] [address] [place] [address], [place] [address] Apr, [facility] [address] [id number] [address] [place] [address], [place] [address] Apr, [facility] [address] [id number] [address] [place] [address], [place] [address] Apr, [facility] [address] [id number] [address] [place] [address], [place] [address] Apr, [facility] [address] [id number] [address] [place] [address], [place] [address] Apr, [facility] [address] [id number] [address] [place] [address], [place] [address] Apr, [facility] [address] [id number] [address] [place] [address], [place] [address] Apr, [facility] [address] [id number] [address] [place] [address], [place] [address] Mar, [facility] [address] [id number] [address] [place] [address], [place] [address] Mar, [facility] [address] [id number] [address] [place] [address], [place] [address] Mar, 2011 [facility] [address] [id number] [address] [place] [address], [place] [address] Mar, 2011 [facility] [address] [id number] [address] [place] [address], [place] [address] Mar, 2011 [facility] [address] [id number] [address] [place] [address], [place] [address] Mar, 2011 [facility] [address] [id number] [address] [place] [address], [place] [address] Mar, [facility] [address] [id number] [address] [place] [address], [place] [address] Mar, [facility] [address] [id number] [address] [place] [address], [place] [address] Mar, [facility] [address] [id number] [address] [place] [address], [place] [address] Mar, [facility] [address] [id number] [address] [place] [address], [place] [address] Mar, [facility] [address] [id number] [address] [place] [address] Mar, [facility] [address] [id number] [address] [place] [address] Mar, [facility] [address] [id number] [address] [place] [address] Mar, [facility] [address] [id number] [address] [place] [address], [place] [address] Mar, [facility] [address] [id number] [address] [place] [address], [place] [address] Mar, [facility] [address] [id number] [address] [place] [address] Jan, [facility] [address] [id number] [address] [place] [address] 24 Jan, 2011 [facility] [address] [id number] [address] [place] [address], [place] [address] 22 Jan, 2011 [facility] [address] [id number] [address] [place] [address], [place] [address] 22 Jan, 2011 [facility] [address] [id number] [address] [place] [address], [place] [address] 21 Jan, 2011 [facility] [address] [id number] [address] [place] [address], [place] [address] 18 Jan, 2011 [facility] [address] [id number] [address] [place] [address], [place] [address] 14 Jan, 2012 [facility] [address] [id number] [address] [place] [address], [place] [address] 07 Jan, 2012 [facility] [address] [id number] [address] [place] [address], [place] [address] 15 Dec, 2011 [facility] [address] [id number] [address] [place] [address], [place] [address] 10 Dec, 2011 [facility] [address] [id number] [address] [place] [address], [place] [address] Dec, [facility] [address] [id number] [address] [place] [address], [place] [address] Dec, [facility] [address] [id number] [address] [place] [address], [place] [address] Dec, [facility] [address] [id number] [address] [place] [address], [place] [address] Dec, [facility] [address] [id number] [address] [place] [address], [place] [address] Dec, [facility] [address] [id number] [address] [place] [address], [place] [address] Nov, [facility] [address] [id number] [address] [place] [address], [place] [address] Oct, [facility] [address] [id number] [address] [place] [address], [place] [address] 05 Aug, 2011 [facility] [address] [id number] [address] [place] [address], [place] [address] 22 Jul, 2011 [facility] [address] [id number] [address] [place] [address], [place] [address] 19 Jul, 2011 [facility] [address] [id number] [address] [place] [address], [place] [address] 16 Jul, 2011 [facility] [address] [id number] [address] [place] [address], [place] [address] 14 Jul, 2011 [facility] [address] [id number] [address] [place] [address], [place] [address] 07 Jul, 2011 [facility] [address] [id number] [address] [place] [address], [place] [address] 02 Jul, 2011 [facility] [address] [id number] [address] [place] [address], [place] [address] 21 Jul, 2011 [facility] [address] [id number] [address] [place] [address], [place] [address] 15 Jul, 2011 [facility] [address] [id number] [address] [place] [address], [place] [address] 13 Jul, 2011 [facility] [address] [id number] [address] [place] [address], [place] [address] 03 Jul, 2011 [facility] [address] [id number] [address] [place] [address], [place] [address] 02 Jul, 2011 [facility] [address] [id number] [address] [place] [address], [place] [address] 24 Jun, 2011 [facility] [address] [id number] [address] [place] [address], [place] [address] 24 Jun, 2011 [facility] [address] [id number] [address] [place] [address], [place] [address] 13 Jun, 2011 [facility] [address] [id number] [address] [place] [address], [place] [address] Jun, [facility] [address] [id number] [address] [place] [address], [place] [address] Jun, [facility] [address] [id number] [address] [place] [address], [place] [address] Jun, [facility] [address] [id number] [address] [place] [address], [place] [address] Jun, [facility] [address] [id number] [address] [place] [address], [place] [address] May, [facility] [address] [id number] [address] [place] [address], [place] [address] May, [facility] [address] [id number] [address] [place] [address], [place] [address] May, [facility] [address] [id number] [address] [place] [address], [place] [address] May, [facility] [address] [id number] [address] [place] [address], [place] [address] May, [facility] [address] [id number] [address] [place] [address], [place] [address] May, [facility] [address] [id number] [address] [place] [address], [place] [address] May, [facility] [address] [id number] [address] [place] [address], [place] [address] May, [facility] [address] [id number] [address] [place] [address], [place] [address] May, [facility] [address] [id number] [address] [place] [address], [place] [address] May, [facility] [address] [id number] [address] [place] [address], [place] [address] 15 Apr, 2011 [facility] [address] [id number] [address] [place] [address], [place] [address] 15 Apr, 2011 [facility] [address] [id number] [address] [place] [address] Apr, [facility] [address] [facility] [id number] [address] [place] [address] Apr, [facility] [address] [facility] [id number] [address] [place] [address] Mar, [facility] [address] [facility] [id number] [address] [place] [address] Mar, [facility] [address] [facility] [id number] [address] [place] [address] Mar, [facility] [address] [facility] [id number] [address] [place] [address] Mar, IMMUNIZATIONS No Known Immunizations SOCIAL HISTORY [...]
--- OUTSIDE RECORDS SUMMARY | 2020-01-03 17:56 | XMS REPORT ---
Author Author Pattie Moffett Doctor Organization [facility] Address Unknown Phone Unavailable Care Team Providers Care Lap Grinder Name Role Phone Migration, Doctor Unavailable Unavailable PROBLEMS Type Condition ICD9-CM Code YHI90-SK Code Onset Dates Condition S tatus SNOMED Code Problem FRANCIS (generalized anxiety disorder) F41.1 Active 15419761 Problem Thoracic disc herniation M51.24 Activ e 917321043 Problem Major depressive disorder in partial remission F32 .4 Active 73322000 Problem Seizure disorder G40.909 Active 128 785555 Problem Conversion disorder (or hysterical neurosis, conversion ty pe) F44.9 Active 65488155 Problem Constipation, unspecified constipation type K59.00 Active 83525937 Problem Mild episode of recurrent major depressive disorder F33.0 Active 431725097 Problem Restless leg syndrome G25.81 Active 70099979 Problem Nonadherence to medication Z91.14 Act vivian 664964894 Problem Slow transit constipation K59.01 Acti ve 42853520 Problem Atrophic vaginitis N95.2 Active 5 2147814 Problem Paroxysmal tachycardia I47.9 Active 22641126 Problem Other chronic pain G89.29 Active 8 6371110 Problem Mild intermittent asthma without complication J45. 20 Active 646767576 Problem Obesity (BMI 30.0-34.9) E66.9 Active [id number] Problem High blood pressure I10 Active 63197930 ALLERGIES No Information ENCOUNTERS Encounter Location Date Diagnosis [facility] [address] [facility] [place] [id number] [address] [place] [address] 03 Nov, [address] [id number] [id number] 26 Oct, 2019 Breast cancer screening Z12.[address] [id number] [address] 08 Oct, 2019 Breast cancer screening Z12. 39 [facility] [address] [facility] [place] [id number] [address] [place] [address] Oct, [facility] [address] [id number] [address] [place] [address] Oct, [facility] [address] [id number] [address] [place] [address] September, [facility] [address] [id number] [address] [place] [address] September, [facility] [address] [id number] [address] [place] [address] September, Well woman exam with routine gynecological exam Z01.419 and Atrophic vaginitis N95.2 [place] [address] [facility] [place] [id number] [address] [place] [address] September, Major depressive disorder in partial remission F32.4 ; FRANCIS (generalized anxiety disorder) F41.1 ; Restless leg syndrome G25.81 and Nonadherence to medication Z91.14 [facility] [address] [id number] [address] [place] [address] September, [facility] [address] [id number] [address] [place] [address] Aug, [facility] [address] [id number] [address] [place] [id number] Aug, Dental examination Z01.20 [facility] [address] [id number] [address] [place] [id number] 15 Aug, 2019 Dental examination Z01.20 an d Caries K02.9 [facility] [address] [id number] [address] [place] [address] Aug, [facility] [address] [id number] [address] [place] [address] Aug, [facility] [address] [facility] [place] [id number] [address] [place] [address] Aug, Other chronic pain G89.29 an d Back muscle spasm M62.830 [facility] [address] [id number] [address] [place] [address] Aug, [facility] [address] [id number] [address] [place] [address] Aug, Major depressive disorder in partial remission F32.4 ; FRANCIS (generalized anxiety disorder) F41.1 ; Restless leg syndrome G25.81 and Nonadherence to medication Z91.14 [facility] [address] [id number] [address] [place] [address] Aug, [facility] [address] [id number] [address] [place] [address] Jul, [facility] [address] [id number] [address] [place] [address] Jul, [facility] [address] [id number] [address] [place] [address] Jul, Major depressive disorder in partial remission F32.4 ; FRANCIS (generalized anxiety disorder) F41.1 ; Restless leg syndrome G25.81 and High blood pressure I10 [facility] [address] [id number] [address] [place] [address] Jul, [facility] [address] [id number] [address] [place] [address] Jul, [facility] [address] [id number] [address] [place] [address] Jun, [facility] [address] [id number] [address] [place] [address] May, [facility] [address] [id number] [address] [place] [address] Apr, [facility] [address] [id number] [address] [place] [address] Apr, [facility] [address] [id number] [address] [place] [address] Mar, [facility] [address] [id number] [address] [place] [address] Mar, Major depressive disorder in partial remission F32.4 ; FRANCIS (generalized anxiety disorder) F41.1 and Restless leg syndrome G25.81 [facility] [address] [id number] [address] [place] [address] Mar, Obesity (BMI 30.0-34.9) E66. 9 [facility] [address] [id number] [address] [place] [address] Jan, [facility] [address] [id number] [address] [place] [address] Jan, Burn T30.0 [facility] [address] [id number] [address] [place] [address] Dec, [facility] [address] [id number] [address] [place] [address] Nov, [facility] [address] [id number] [address] [place] [address] Nov, [facility] [address] [id number] [address] [place] [id number] Nov, Dental examination Z01.20 [facility] [address] [id number] [address] [place] [address] September, [facility] [address] [id number] [address] [place] [id number] September, Decay, teeth K02.9 and Denta l examination Z01.20 [facility] [address] [id number] [address] [place] [id number] September, Dental examination Z01.20 [facility] [address] [facility] [place] [id number] [address] [place] [address] September, FRANCIS (generalized anxiety dis order) F41.1 ; Major depressive disorder in partial remission F32.4 and Restless leg syndrome G25.81 [facility] [address] [facility] [place] [id number] [address] [place] [address] Aug, [facility] [address] [facility] [place] [id number] [address] [place] [address] Jul, [facility] [address] [facility] [place] [id number] [address] [place] [address] Jul, Encounter to discuss test re sults Z71.2 [facility] [address] [facility] [place] [id number] [address] [place] [address] Jul, Pelvic pain R10.2 ; Screenin g for breast cancer Z12.31 and Obesity (BMI 30.0-34.9) E66.9 [facility] [address] [facility] [place] [id number] [address] [place] [address] Jul, Mild intermittent asthma wit hout complication J45.20 [place] [address] [facility] [place] [id number] [address] [place] [address] Jul, Major depressive disorder in partial remission F32.4 and FRANCIS (generalized anxiety disorder) F41.1 [facility] [address] [place] [id number] [address] [place] [address] Jul, [facility] [address] [place] [id number] [address] [place] [address] Jun, [place] [address] [facility] [place] [id number] [address] [place] [address] May, Major depressive disorder in partial remission F32.4 ; FRANCIS (generalized anxiety disorder) F41.1 and Restless leg syndrome G25.81 [facility] [address] [facility] [place] [id number] [address] [place] [address] Apr, [facility] [address] [facility] [place] [id number] [address] [place] [address] Mar, [facility] [address] [facility] [place] [id number] [address] [place] [address] Jan, Pain in thoracic spine M54.6 and Other chronic pain G89.29 [facility] [address] [place] [id number] [address] [place] [address] 14 Jan, 2018 [facility] [address] [id number] [address] [place] [address] Jan, Mild episode of recurrent ma saray depressive disorder F33.0 ; FRANCIS (generalized anxiety disorder) F41.1 and Restless leg syndrome G25.81 [facility] [address] [id number] [address] [place] [address] Dec, [facility] [address] [id number] [address] [place] [address] Dec, Hospital discharge follow-up Z09 [facility] [address] [id number] [address] [place] [address] Nov, [facility] [address] [id number] [address] [place] [address] Nov, [facility] [address] [id number] [address] [place] [address] September, [facility] [address] [id number] [address] [place] [address] September, [facility] [address] [id number] [address] [place] [address] September, Major depressive disorder in partial remission F32.4 ; FRANCIS (generalized anxiety disorder) F41.1 and Restless leg syndrome G25.81 [facility] [address] [id number] [address] [place] [address] September, [facility] [address] [id number] [address] [place] [address] Jul, [facility] [address] [id number] [address] [place] [address] Jul, Dorsalgia, unspecified M54.9 [facility] [address] [id number] [address] [place] [address] Jul, Mild episode of recurrent ma saray depressive disorder F33.0 and FRANCIS (generalized anxiety disorder) F41.1 [facility] [address] [id number] [address] [place] [address] 12 May, 2017 [facility] [address] [facility] [place] [id number] [address] [place] [address] May, Dysuria R30.0 and Acute cyst itis with hematuria N30.01 [facility] [address] [id number] [address] [place] [address] Apr, [facility] [address] [id number] [address] [place] [address] Apr, Major depressive disorder in partial remission F32.4 and FRANCIS (generalized anxiety disorder) F41.1 [facility] [address] [facility] [place] [id number] [address] [place] [address] Mar, Paroxysmal tachycardia I47.9 [facility] [address] [id number] [address] [place] [address] Mar, Paroxysmal tachycardia I47.9 and Pain of left lower extremity M79.605 [facility] [address] [facility] [place] [id number] [address] [place] [address] Mar, FRANCIS (generalized anxiety dis order) F41.1 and Major depressive disorder in partial remission F32.4 [facility] [address] [id number] [address] [place] [address] Jan, [facility] [address] [facility] [place] [id number] [address] [place] [address] Jan, [facility] [address] [facility] [place] [id number] [address] [place] [address] Jan, [facility] [address] [facility] [place] [id number] [address] [place] [address] Dec, Constipation, unspecified co nstipation type K59.00 [facility] [address] [facility] [place] [id number] [address] [place] [address] Dec, [facility] [address] [facility] [place] [id number] [address] [place] [address] Nov, [facility] [address] [facility] [place] [id number] [address] [place] [address] Nov, Major depressive disorder in partial remission F32.4 and FRANCIS (generalized anxiety disorder) F41.1 [facility] [address] [facility] [place] [id number] [address] [place] [address] Oct, Abdominal pain R10.9 and Slo w transit constipation K59.01 [facility] [address] [facility] [place] [id number] [address] [place] [address] Aug, Major depressive disorder in partial remission F32.4 ; FRANCIS (generalized anxiety disorder) F41.1 ; Conversion disorder (or hysterical neurosis, conversion type) F44.9 ; Dorsalgia, unspecified M54.9 and Long-term use of high-risk medication Z79.899 [place] [address] [facility] [place] [id number] [address] [place] [address] Aug, [facility] [address] [facility] [place] [id number] [address] [place] [address] Jul, Paroxysmal tachycardia I47.9 [place] [address] [facility] [place] [id number] [address] [place] [address] Jul, Paroxysmal tachycardia I47.9 [place] [address] [facility] [place] [id number] [address] [place] [address] Jun, [place] [address] [facility] [place] [id number] [address] [place] [address] Jun, Major depressive disorder in partial remission F32.4 ; FRANCIS (generalized anxiety disorder) F41.1 and Conversion disorder (or hysterical neurosis, conversion type) F44.9 [facility] [address] [facility] [place] [id number] [address] [place] [address] May, Pelvic pain R10.2 [facility] [address] [facility] [place] [id number] [address] [place] [address] Apr, Gastroenteritis K52.9 [facility] [address] [id number] [address] [place] [address] 17 Apr, 2016 Blood in urine R31.9 and Acu te cystitis with hematuria N30.01 [facility] [address] [id number] [address] [place] [address] Apr, Major depressive disorder in partial remission F32.4 ; FRANCIS (generalized anxiety disorder) F41.1 and Conversion disorder (or hysterical neurosis, conversion type) F44.9 [facility] [address] [id number] [address] [place] [address] Apr, [facility] [address] [id number] [address] [place] [address] Apr, Abnormal mammogram R92.8 [facility] [address] [id number] [address] [place] [address] Mar, [facility] [address] [id number] [address] [place] [address] Mar, Gastroenteritis K52.9 and Se izure disorder G40.909 [facility] [address] [id number] [address] [place] [address] Dec, [facility] [address] [id number] [address] [place] [address] Dec, Other headache syndrome G44. 89 [facility] [address] [id number] [address] [place] [address] Dec, [facility] [address] [id number] [address] [place] [address] Dec, Thoracic disc herniation M51 .24 [facility] [address] [id number] [address] [place] [address] Dec, [facility] [address] [id number] [address] [place] [address] Nov, Major depressive disorder in partial remission F32.4 and FRANCIS (generalized anxiety disorder) F41.1 [place] [id number] [id number] [address] [place] [address], [place] [address] Nov, [facility] [address] [id number] [address] [place] [address] Nov, Dorsalgia, unspecified M54.9 [facility] [address] [id number] [address] [place] [address] Oct, [facility] [address] [id number] [address] [place] [address] September, [facility] [address] [id number] [address] [place] [address] Aug, [facility] [address] [id number] [address] [place] [address] Aug, Major depressive disorder in partial remission F32.4 and FRANCIS (generalized anxiety disorder) F41.1 [facility] [address] [id number] [address] [place] [address] Aug, [facility] [address] [id number] [address] [place] [address] Jul, Abnormal mammogram R92.8 [facility] [address] [id number] [address] [place] [address] Jul, [facility] [address] [id number] [address] [place] [address] Jul, [facility] [address] [id number] [address] [place] [address] Jul, [facility] [address] [id number] [address] [place] [address] Jul, [facility] [address] [id number] [address] [place] [address] Jul, [facility] [address] [id number] [address] [place] [address] Jul, [facility] [address] [id number] [address] [place] [address] Jun, Major depressive disorder in partial remission F32.4 and FRANCIS (generalized anxiety disorder) F41.1 [facility] [address] [id number] [address] [place] [address] Jun, [facility] [address] [id number] [address] [place] [address] May, [facility] [address] [id number] [address] [place] [address] Apr, [facility] [address] [id number] [address] [place] [address] Mar, Major depressive disorder, r ecurrent episode, moderate F33.1 ; PTSD (post-traumatic stress disorder) F43.10 and FRANCIS (generalized anxiety disorder) F41.1 [facility] [address] [id number] [address] [place] [address] Mar, [facility] [address] [id number] [address] [place] [address] Mar, [facility] [address] [id number] [address] [place] [address] Mar, [facility] [address] [id number] [address] [place] [address] Mar, [facility] [address] [id number] [address] [place] [id number] 23 Jan, 2015 [facility] [address] [id number] [address] [place] [address] 15 Jan, 2015 [facility] [address] [id number] [address] [place] [address] 15 Jan, 2015 [facility] [address] [facility] [id number] [address] [place] [address] 14 Jan, 2015 Thoracic disc herniation 722 .11 [facility] [address] [id number] [address] [place] [address] Dec, [facility] [address] [id number] [address] [place] [address] Dec, [facility] [address] [id number] [address] [place] [address] Dec, [facility] [address] [id number] [address] [place] [address] Nov, [facility] [address] [id number] [address] [place] [address] Nov, Generalized anxiety disorder 300.02 ; Posttraumatic stress disorder 309.81 and Major depressive disorder, recurrent episode, moderate 296.32 [facility] [address] [id number] [address] [place] [id number] Nov, [facility] [address] [id number] [address] [place] [id number] Nov, [facility] [address] [id number] [address] [place] [id number] Oct, [facility] [address] [id number] [address] [place] [id number] Oct, [facility] [address] [id number] [address] [place] [id number] Oct, [facility] [address] [id number] [address] [place] [id number] September, [facility] [address] [id number] [address] [place] [id number] September, [facility] [address] [id number] [address] [place] [id number] Aug, [facility] [address] [id number] [address] [place] [id number] Aug, [facility] [address] [id number] [address] [place] [id number] Jul, [facility] [address] [id number] [address] [place] [id number] Jul, [facility] [address] [id number] [address] [place] [address], [place] [id number] 17 Jul, 2014 [facility] [address] [id number] [address] [place] [address], [place] [id number] 17 Jul, 2014 [facility] [address] [id number] [address] [place] [address], [place] [id number] 16 Jul, 2014 [facility] [address] [id number] [address] [place] [address], [place] [id number] 16 Jul, 2014 [facility] [address] [id number] [address] [place] [address], [place] [id number] Jul, [facility] [address] [id number] [address] [place] [address], [place] [id number] Jul, [facility] [address] [address] [id number] [address] [place] [address], [place] [address] Jul, [facility] [address] [id number] [address] [place] [address], [place] [address] Jul, [facility] [address] [id number] [address] [place] [address], [place] [address] Jun, [facility] [address] [id number] [address] [place] [address], [place] [address] Jun, [facility] [address] [id number] [address] [place] [address], [place] [address] Jun, [facility] [address] [id number] [address] [place] [address], [place] [address] May, [facility] [address] [id number] [address] [place] [address], [place] [address] Apr, [facility] [address] [id number] [address] [place] [address], [place] [address] Apr, [facility] [address] [id number] [address] [place] [address], [place] [address] Apr, [facility] [address] [id number] [address] [place] [address], [place] [address] Apr, [facility] [address] [id number] [address] [place] [address], [place] [address] Apr, [facility] [address] [id number] [address] [place] [address], [place] [address] Apr, [facility] [address] [id number] [address] [place] [address], [place] [address] Apr, [facility] [address] [id number] [address] [place] [address], [place] [address] Apr, [facility] [address] [id number] [address] [place] [address], [place] [address] Mar, [facility] [address] [id number] [address] [place] [address], [place] [address] Mar, [facility] [address] [id number] [address] [place] [address], [place] [address] Mar, [facility] [address] [id number] [address] [place] [address], [place] [address] Mar, [facility] [address] [id number] [address] [place] [address], [place] [address] Mar, [facility] [address] [id number] [address] [place] [address], [place] [address] Mar, [facility] [address] [id number] [address] [place] [address], [place] [address] Mar, [facility] [address] [id number] [address] [place] [address], [place] [address] Mar, [facility] [address] [id number] [address] [place] [address], [place] [address] Mar, [facility] [address] [id number] [address] [place] [address], [place] [address] Mar, [facility] [address] [id number] [address] [place] [address], [place] [address] 17 Mar, 2014 [facility] [address] [id number] [address] [place] [address], [place] [address] 14 Mar, 2013 [facility] [address] [id number] [address] [place] [address], [place] [address] 14 Mar, 2014 [facility] [address] [id number] [address] [place] [address], [place] [address] 07 Mar, 2013 [facility] [address] [id number] [address] [place] [address], [place] [address] 07 Mar, 2013 [facility] [address] [id number] [address] [place] [address], [place] [address] 06 Mar, 2014 [facility] [address] [id number] [address] [place] [address], [place] [address] 06 Mar, 2013 [facility] [address] [id number] [address] [place] [address], [place] [address] 19 Sep, 2013 [facility] [address] [id number] [address] [place] [address], [place] [address] 19 Sep, 2013 [facility] [address] [id number] [address] [place] [address], [place] [address] 09 Sep, 2013 [facility] [address] [id number] [address] [place] [address], [place] [address] 09 Sep, 2013 [facility] [address] [id number] [address] [place] [address], [place] [address] 05 Sep, 2013 [facility] [address] [id number] [address] [place] [address], [place] [address] 05 Sep, 2013 [facility] [address] [id number] [address] [place] [address], [place] [address] 05 Sep, 2013 [facility] [address] [id number] [address] [place] [address], [place] [address] 05 Sep, 2013 [facility] [address] [id number] [address] [place] [address], [place] [address] 03 Sep, 2013 [facility] [address] [id number] [address] [place] [address], [place] [address] Jan, [facility] [address] [id number] [address] [place] [address], [place] [address] Jan, [facility] [address] [id number] [address] [place] [address], [place] [address] Jan, [facility] [address] [id number] [address] [place] [address], [place] [address] Jan, [facility] [address] [id number] [address] [place] [address], [place] [address] Dec, [facility] [address] [id number] [address] [place] [address], [place] [address] Dec, [facility] [address] [id number] [address] [place] [address], [place] [address] Dec, [facility] [address] [id number] [address] [place] [address], [place] [address] Dec, [facility] [address] [id number] [address] [place] [address], [place] [address] Dec, [facility] [address] [id number] [address] [place] [address], [place] [address] Dec, [facility] [address] [place] [id number] Dec, [facility] [address] [place] [id number] Dec, [facility] [address] [id number] [address] [place] [address], [place] [address] Dec, [facility] [address] [id number] [address] [place] [address], [place] [address] Dec, [facility] [address] [id number] [address] [place] [address], [place] [address] Dec, [facility] [address] [id number] [address] [place] [address], [place] [address] Dec, [facility] [address] [id number] [address] [place] [address], [place] [address] Nov, [facility] [address] [id number] [facility] [place] [address] Nov, [facility] [address] [id number] [facility] [place] [address] Nov, [facility] [address] [id number] [facility] [place] [address] Nov, [facility] [address] [id number] [address] [place] [address], [place] [address] Nov, [facility] [address] [id number] [address] [place] [address], [place] [address] Nov, [facility] [address] [id number] [address] [place] [address], [place] [address] Nov, [facility] [address] [id number] [address] [place] [address], [place] [address] Nov, [facility] [address] [id number] [address] [place] [address], [place] [address] Nov, [facility] [address] [id number] [address] [place] [address], [place] [address] Nov, [facility] [address] [id number] [address] [place] [address], [place] [address] Nov, [facility] [address] [id number] [address] [place] [address], [place] [address] Nov, [facility] [address] [id number] [address] [place] [address], [place] [address] Nov, [facility] [address] [id number] [address] [place] [address], [place] [address] Oct, [facility] [address] [id number] [address] [place] [address], [place] [address] Oct, [facility] [address] [id number] [address] [place] [address], [place] [address] Oct, [facility] [address] [id number] [facility] [place] [address] Oct, [facility] [address] [id number] [address] [place] [address], [place] [address] Oct, [facility] [address] [id number] [address] [place] [address], [place] [address] Oct, [facility] [address] [id number] [address] [place] [address], [place] [address] Oct, [facility] [address] [id number] [address] [place] [address], [place] [address] Oct, [facility] [address] [id number] [address] [place] [address], [place] [address] Oct, [facility] [address] [id number] [address] [place] [address], [place] [address] Oct, [facility] [address] [id number] [address] [place] [address], [place] [address] Oct, [facility] [address] [id number] [address] [place] [address], [place] [address] Oct, [facility] [address] [id number] [address] [place] [address], [place] [address] September, [facility] [address] [id number] [address] [place] [address], [place] [address] September, [facility] [address] [id number] [address] [place] [address], [place] [address] September, [facility] [address] [id number] [address] [place] [address], [place] [address] September, [facility] [address] [id number] [address] [place] [address], [place] [address] Aug, [facility] [address] [id number] [address] [place] [address], [place] [address] Aug, [facility] [address] [id number] [address] [place] [address], [place] [address] Aug, [facility] [address] [id number] [address] [place] [address], [place] [address] Aug, [facility] [address] [id number] [address] [place] [address], [place] [address] Aug, [facility] [address] [id number] [address] [place] [address], [place] [address] Aug, [facility] [address] [id number] [address] [place] [address], [place] [address] Aug, [facility] [address] [id number] [address] [place] [address], [place] [address] Jul, [facility] [address] [id number] [address] [place] [address], [place] [address] Jul, [facility] [address] [id number] [address] [place] [address], [place] [address] Jul, [facility] [address] [id number] [address] [place] [address], [place] [address] Jul, [facility] [address] [id number] [address] [place] [address], [place] [address] Jul, [facility] [address] [id number] [address] [place] [address], [place] [address] Jul, [facility] [address] [id number] [address] [place] [address], [place] [address] Jul, [facility] [address] [id number] [address] [place] [address], [place] [address] Jul, [facility] [address] [id number] [address] [place] [address], [place] [address] Jul, [facility] [address] [id number] [address] [place] [address], [place] [address] Jul, [facility] [address] [id number] [address] [place] [address], [place] [address] Jul, [facility] [address] [id number] [address] [place] [address], [place] [address] 18 Jul, 2013 [facility] [address] [id number] [address] [place] [address], [place] [address] 14 Jul, 2013 [facility] [address] [id number] [address] [place] [address], [place] [address] 14 Jul, 2013 [facility] [address] [id number] [address] [place] [address], [place] [address] 11 Jul, 2013 [facility] [address] [id number] [address] [place] [address], [place] [address] 11 Jul, 2013 [facility] [address] [id number] [address] [place] [address], [place] [address] Jul, [facility] [address] [id number] [address] [place] [address], [place] [address] Jul, [facility] [address] [id number] [address] [place] [address], [place] [address] 31 Jun, 2013 [facility] [address] [id number] [address] [place] [address], [place] [address] 31 Jun, 2013 [facility] [address] [id number] [address] [place] [address], [place] [address] 15 Jun, 2013 [facility] [address] [id number] [address] [place] [address], [place] [address] 15 Jun, 2013 [facility] [address] [id number] [address] [place] [address], [place] [address] 14 Jun, 2013 [facility] [address] [id number] [address] [place] [address], [place] [address] 14 Jun, 2013 [facility] [address] [id number] [address] [place] [address], [place] [address] 14 Jun, 2013 [facility] [address] [id number] [address] [place] [address], [place] [address] 14 Jun, 2013 [facility] [address] [id number] [address] [place] [address], [place] [address] 14 Jun, 2013 [facility] [address] [id number] [address] [place] [address], [place] [address] 14 Jun, 2013 [facility] [address] [id number] [address] [place] [address], [place] [address] 27 May, 2013 [facility] [address] [id number] [address] [place] [address], [place] [address] 27 May, 2013 [facility] [address] [id number] [address] [place] [address], [place] [address] 26 May, 2013 [facility] [address] [id number] [address] [place] [address], [place] [address] 19 May, 2013 [facility] [address] [id number] [address] [place] [address], [place] [address] 19 May, 2013 [facility] [address] [id number] [address] [place] [address], [place] [address] 16 May, 2013 [facility] [address] [id number] [address] [place] [address], [place] [address] 16 May, 2013 [facility] [address] [id number] [address] [place] [address], [place] [address] 16 May, 2013 [facility] [address] [id number] [address] [place] [address], [place] [address] 16 May, 2013 [facility] [address] [id number] [address] [place] [address], [place] [address] 13 May, 2013 [facility] [address] [id number] [address] [place] [address], [place] [address] 13 May, 2013 [facility] [address] [id number] [address] [place] [address], [place] [address] 11 May, 2013 [facility] [address] [id number] [address] [place] [address], [place] [address] 20 Apr, 2013 [facility] [address] [id number] [address] [place] [address], [place] [address] 18 Apr, 2013 [facility] [address] [id number] [address] [place] [address] 18 Apr, 2013 [facility] [address] [id number] [address] [place] [address], [place] [address] Apr, [facility] [address] [id number] [address] [place] [address] Apr, [facility] [address] [id number] [address] [place] [address], [place] [address] 08 Apr, 2013 [facility] [address] [id number] [address] [place] [address] 08 Apr, 2013 [facility] [address] [id number] [address] [place] [address], [place] [address] Apr, [facility] [address] [id number] [address] [place] [address] Apr, [facility] [address] [id number] [address] [place] [address] Apr, [facility] [address] [id number] [address] [place] [address] Apr, [facility] [address] [id number] [address] [place] [address] Mar, [facility] [address] [id number] [address] [place] [address] Mar, [facility] [address] [id number] [address] [place] [address] Mar, [facility] [address] [id number] [address] [place] [address] Mar, [facility] [address] [id number] [address] [place] [address] Mar, [facility] [address] [id number] [address] [place] [address] Mar, [facility] [address] [id number] [address] [place] [address] Mar, [facility] [address] [id number] [address] [place] [address], [place] [address] 18 Mar, 2013 [facility] [address] [id number] [address] [place] [address], [place] [address] 18 Mar, 2013 [facility] [address] [id number] [address] [place] [address], [place] [address] 15 Mar, 2013 [facility] [address] [id number] [address] [place] [address], [place] [address] 15 Mar, 2013 [facility] [address] [id number] [address] [place] [address], [place] [address] Mar, [facility] [address] [id number] [address] [place] [address], [place] [address] 30 Jan, 2013 [facility] [address] [id number] [address] [place] [address], [place] [address] 25 Jan, 2013 [facility] [address] [id number] [address] [place] [address], [place] [address] Jan, [facility] [address] [id number] [address] [place] [address], [place] [address] Jan, [facility] [address] [id number] [address] [place] [address], [place] [address] Dec, [facility] [address] [id number] [address] [place] [address], [place] [address] Dec, [facility] [address] [id number] [address] [place] [address], [place] [address] Dec, [facility] [address] [id number] [address] [place] [address], [place] [address] Dec, [facility] [address] [id number] [address] [place] [address], [place] [address] Dec, [facility] [address] [id number] [address] [place] [address], [place] [address] Dec, [facility] [address] [id number] [address] [place] [address], [place] [address] Dec, [facility] [address] [id number] [address] [place] [address], [place] [address] Dec, [facility] [address] [id number] [address] [place] [address], [place] [address] Dec, [facility] [address] [id number] [address] [place] [address], [place] [address] Nov, [facility] [address] [id number] [address] [place] [address], [place] [address] Nov, [facility] [address] [id number] [address] [place] [address], [place] [address] Nov, [facility] [address] [id number] [address] [place] [address], [place] [address] Nov, [facility] [address] [id number] [address] [place] [address], [place] [address] Nov, [facility] [address] [id number] [address] [place] [address], [place] [address] Nov, [facility] [address] [id number] [address] [place] [address], [place] [address] Nov, [facility] [address] [id number] [address] [place] [address], [place] [address] Nov, [facility] [address] [id number] [address] [place] [address], [place] [address] Oct, [facility] [address] [id number] [address] [place] [address], [place] [address] Oct, [facility] [address] [id number] [address] [place] [address], [place] [address] Oct, [facility] [address] [id number] [address] [place] [address], [place] [address] Oct, [facility] [address] [id number] [address] [place] [address], [place] [address] Oct, [facility] [address] [id number] [address] [place] [address], [place] [address] 21 Oct, 2012 [facility] [address] [id number] [address] [place] [address], [place] [address] 20 Oct, 2012 [facility] [address] [id number] [address] [place] [address], [place] [address] 20 Oct, 2012 [facility] [address] [id number] [address] [place] [address], [place] [address] 19 Oct, 2012 [facility] [address] [id number] [address] [place] [address], [place] [address] 18 Oct, 2012 [facility] [address] [id number] [address] [place] [address], [place] [address] 17 Oct, 2012 [facility] [address] [id number] [address] [place] [address], [place] [address] 14 Oct, 2012 [facility] [address] [id number] [address] [place] [address], [place] [address] 07 Oct, 2012 [facility] [address] [id number] [address] [place] [address], [place] [address] 30 Sep, 2012 [facility] [address] [id number] [address] [place] [address], [place] [address] 22 Sep, 2012 [facility] [address] [id number] [address] [place] [address], [place] [address] 15 Sep, 2012 [facility] [address] [id number] [address] [place] [address], [place] [address] 25 Aug, 2012 [facility] [address] [id number] [address] [place] [address], [place] [address] 24 Aug, 2012 [facility] [address] [id number] [address] [place] [address], [place] [address] 18 Aug, 2012 [facility] [address] [id number] [address] [place] [address], [place] [address] 18 Aug, 2012 [facility] [address] [id number] [address] [place] [address], [place] [address] 18 Aug, 2012 [facility] [address] [id number] [address] [place] [address], [place] [address] 08 Aug, 2012 [facility] [address] [id number] [address] [place] [address], [place] [address] Aug, [facility] [address] [id number] [address] [place] [address], [place] [address] Jul, [facility] [address] [id number] [address] [place] [address], [place] [address] Jul, [facility] [address] [id number] [address] [place] [address], [place] [address] Jul, [facility] [address] [id number] [address] [place] [address], [place] [address] Jul, [facility] [address] [id number] [address] [place] [address], [place] [address] Jul, [facility] [address] [id number] [address] [place] [address], [place] [address] Jul, [facility] [address] [id number] [address] [place] [address], [place] [address] Jul, [facility] [address] [id number] [address] [place] [address], [place] [address] Jul, [facility] [address] [id number] [address] [place] [address], [place] [address] Jul, [facility] [address] [id number] [address] [place] [address], [place] [address] Jul, [facility] [address] [id number] [address] [place] [address], [place] [address] Jul, [facility] [address] [id number] [address] [place] [address], [place] [address] 06 Jul, 2012 [facility] [address] [id number] [address] [place] [address], [place] [address] Jul, [facility] [address] [id number] [address] [place] [address], [place] [address] 24 Jun, 2012 [facility] [address] [id number] [address] [place] [address], [place] [address] Jun, [facility] [address] [id number] [address] [place] [address], [place] [address] 19 Jun, 2012 [facility] [facility] [address] [id number] [address] [place] [address], [place] [address] 17 Jun, 2012 [facility] [address] [id number] [address] [place] [address], [place] [address] 15 Jun, 2012 [facility] [address] [id number] [address] [place] [address], [place] [address] 14 Jun, 2012 [facility] [address] [id number] [address] [place] [address], [place] [address] 08 Jun, 2012 [facility] [address] [id number] [address] [place] [address], [place] [address] 28 May, 2012 [facility] [address] [id number] [address] [place] [address], [place] [address] May, [facility] [address] [id number] [address] [place] [address], [place] [address] May, [facility] [address] [id number] [address] [place] [address], [place] [address] May, [facility] [address] [id number] [address] [place] [address], [place] [address] May, [facility] [address] [id number] [address] [place] [address], [place] [address] 24 May, 2012 [facility] [address] [id number] [address] [place] [address], [place] [address] May, [facility] [address] [id number] [address] [place] [address], [place] [address] May, [facility] [address] [id number] [address] [place] [address], [place] [address] May, [facility] [address] [id number] [address] [place] [address], [place] [address] May, [facility] [address] [id number] [address] [place] [address], [place] [address] Apr, [facility] [address] [id number] [address] [place] [address], [place] [address] Apr, [facility] [address] [id number] [address] [place] [address], [place] [address] Apr, [facility] [address] [id number] [address] [place] [address], [place] [address] Apr, [facility] [address] [id number] [address] [place] [address], [place] [address] Apr, [facility] [address] [id number] [address] [place] [address], [place] [address] Apr, [facility] [address] [id number] [address] [place] [address], [place] [address] Apr, [facility] [address] [id number] [address] [place] [address], [place] [address] Apr, [facility] [address] [id number] [address] [place] [address], [place] [address] Apr, [facility] [address] [id number] [address] [place] [address], [place] [address] Apr, [facility] [address] [id number] [address] [place] [address], [place] [address] Apr, [facility] [address] [id number] [address] [place] [address], [place] [address] Apr, [facility] [address] [id number] [address] [place] [address], [place] [address] Mar, [facility] [address] [id number] [address] [place] [address], [place] [address] Mar, [facility] [address] [id number] [address] [place] [address], [place] [address] Mar, 2011 [facility] [address] [id number] [address] [place] [address], [place] [address] Mar, 2011 [facility] [address] [id number] [address] [place] [address] Mar, 2011 [facility] [address] [id number] [address] [place] [address] Mar, 2011 [facility] [address] [id number] [address] [place] [address] Mar, 2011 [facility] [address] [id number] [address] [place] [address], [place] [address] Mar, 2011 [facility] [address] [id number] [address] [place] [address] Mar, 2011 [facility] [address] [id number] [address] [place] [address] Mar, 2011 [facility] [address] [id number] [address] [place] [address] Mar, [facility] [address] [id number] [address] [place] [address] Mar, [facility] [address] [id number] [address] [place] [address] Mar, [facility] [address] [id number] [address] [place] [address] Mar, [facility] [address] [id number] [address] [place] [address] Mar, [facility] [address] [id number] [address] [place] [address], [place] [address] Mar, [facility] [address] [id number] [address] [place] [address] Jan, [facility] [address] [id number] [address] [place] [address] 24 Jan, 2012 [facility] [address] [id number] [address] [place] [address], [place] [address] 22 Jan, 2011 [facility] [address] [id number] [address] [place] [address], [place] [address] 22 Jan, 2011 [facility] [address] [id number] [address] [place] [address], [place] [address] 21 Jan, 2012 [facility] [address] [id number] [address] [place] [address], [place] [address] 18 Jan, 2011 [facility] [address] [id number] [address] [place] [address], [place] [address] 14 Jan, 2012 [facility] [address] [id number] [address] [place] [address], [place] [address] 07 Jan, 2012 [facility] [address] [id number] [address] [place] [address], [place] [address] 15 Dec, 2011 [facility] [address] [id number] [address] [place] [address], [place] [address] 10 Dec, 2011 [facility] [address] [id number] [address] [place] [address], [place] [address] Dec, [facility] [address] [id number] [address] [place] [address], [place] [address] Dec, [facility] [address] [id number] [address] [place] [address], [place] [address] Dec, [facility] [address] [id number] [address] [place] [address], [place] [address] Dec, [facility] [address] [id number] [address] [place] [address], [place] [address] Dec, [facility] [address] [id number] [address] [place] [address], [place] [address] Nov, [facility] [address] [id number] [address] [place] [address], [place] [address] Oct, [facility] [address] [id number] [address] [place] [address], [place] [address] Aug, [facility] [address] [id number] [address] [place] [address], [place] [address] 22 Jul, 2011 [facility] [address] [id number] [address] [place] [address], [place] [address] 19 Jul, 2011 [facility] [address] [id number] [address] [place] [address], [place] [address] 16 Jul, 2011 [facility] [address] [id number] [address] [place] [address], [place] [address] 14 Jul, 2011 [facility] [address] [id number] [address] [place] [address], [place] [address] 07 Jul, 2011 [facility] [address] [id number] [address] [place] [address], [place] [address] 02 Jul, 2011 [facility] [address] [id number] [address] [place] [address], [place] [address] 21 Jul, 2011 [facility] [address] [id number] [address] [place] [address], [place] [address] 15 Jul, 2011 [facility] [address] [id number] [address] [place] [address], [place] [address] 13 Jul, 2011 [facility] [address] [id number] [address] [place] [address], [place] [address] 03 Jul, 2011 [facility] [address] [id number] [address] [place] [address], [place] [address] 02 Jul, 2011 [facility] [address] [id number] [address] [place] [address], [place] [address] 24 Jun, 2011 [facility] [address] [id number] [address] [place] [address], [place] [address] 24 Jun, 2011 [facility] [address] [id number] [address] [place] [address], [place] [address] 13 Jun, 2011 [facility] [address] [id number] [address] [place] [address], [place] [address] 11 Jun, 2011 [facility] [address] [id number] [address] [place] [address], [place] [address] 06 Jun, 2011 [facility] [address] [id number] [address] [place] [address], [place] [address] Jun, [facility] [address] [id number] [address] [place] [address], [place] [address] Jun, [facility] [address] [id number] [address] [place] [address], [place] [address] May, [facility] [address] [id number] [address] [place] [address], [place] [address] May, [facility] [address] [id number] [address] [place] [address], [place] [address] May, [facility] [address] [id number] [address] [place] [address], [place] [address] May, [facility] [address] [id number] [address] [place] [address], [place] [address] May, [facility] [address] [id number] [address] [place] [address], [place] [address] May, [facility] [address] [id number] [address] [place] [address], [place] [address] May, [facility] [address] [id number] [address] [place] [address], [place] [address] May, [facility] [address] [id number] [address] [place] [address], [place] [address] May, [facility] [address] [id number] [address] [place] [address], [place] [address] May, [facility] [address] [id number] [address] [place] [address], [place] [address] 15 Apr, 2011 [facility] [address] [id number] [address] [place] [address], [place] [address] 15 Apr, 2011 [facility] [address] [id number] [address] [place] [address], [place] [address] Apr, [facility] [address] [facility] [place] [id number] [address] [place] [address] Apr, [facility] [address] [facility] [place] [id number] [address] [place] [address] Mar, [facility] [address] [facility] [place] [id number] [address] [place] [address] Mar, [facility] [address] [facility] [place] [id number] [address] [place] [address] Mar, [facility] [address] [facility] [place] [id number] [address] [place] [address] Mar, IMMUNIZATIONS No Known Immunizations SOCIAL HISTORY [...]
--- OUTSIDE RECORDS SUMMARY | 2020-01-03 17:56 | XMS REPORT ---
Author Author Pattie Moffett Doctor Organization [facility] Address Unknown Phone Unavailable Care Team Providers Care Electronic Bench Technician Name Role Phone Migration, Doctor Unavailable Unavailable PROBLEMS Type Condition ICD9-CM Code ZFB20-GA Code Onset Dates Condition S tatus SNOMED Code Problem FRANCIS (generalized anxiety disorder) F41.1 Active 68324989 Problem Thoracic disc herniation M51.24 Activ e 728707012 Problem Major depressive disorder in partial remission F32 .4 Active 28694734 Problem Seizure disorder G40.909 Active 128 070228 Problem Conversion disorder (or hysterical neurosis, conversion ty pe) F44.9 Active 34492836 Problem Constipation, unspecified constipation type K59.00 Active 65039388 Problem Mild episode of recurrent major depressive disorder F33.0 Active 757550251 Problem Restless leg syndrome G25.81 Active 91831985 Problem Nonadherence to medication Z91.14 Act vivian 409357763 Problem Slow transit constipation K59.01 Acti ve 43057741 Problem Atrophic vaginitis N95.2 Active 5 4650634 Problem Paroxysmal tachycardia I47.9 Active 09920432 Problem Other chronic pain G89.29 Active 8 5776216 Problem Mild intermittent asthma without complication J45. 20 Active 583487575 Problem Obesity (BMI 30.0-34.9) E66.9 Active 625695860899881 Problem High blood pressure I10 Active 63231466 ALLERGIES No Information ENCOUNTERS Encounter Location Date Diagnosis [facility] [address] [facility] [id number] [address] [place] [id number] 03 Nov, [address] [id number] [id number] 26 Oct, 2019 Breast cancer screening Z12.[address] [id number] [address] 08 Oct, 2019 Breast cancer screening Z12. 39 [facility] [address] [facility] [id number] [address] [place] [id number] Oct, [facility] [address] [id number] [address] [place] [id number] Oct, [facility] [address] [id number] [address] [place] [id number] September, [facility] [address] [id number] [address] [place] [phone] September, [facility] [address] [id number] [address] [place] [id number] September, Well woman exam with routine gynecological exam Z01.419 and Atrophic vaginitis N95.2 [place] [address] [facility] [id number] [address] [place] [id number] September, Major depressive disorder in partial remission F32.4 ; FRANCIS (generalized anxiety disorder) F41.1 ; Restless leg syndrome G25.81 and Nonadherence to medication Z91.14 [facility] [address] [id number] [address] [place] [id number] September, [facility] [address] [id number] [address] [place] [id number] Aug, [facility] [address] [id number] [address] [place] [id number] Aug, Dental examination Z01.20 [facility] [address] [id number] [address] [place] [id number] 15 Aug, 2019 Dental examination Z01.20 an d Caries K02.9 [facility] [address] [id number] [address] [place] [id number] Aug, [facility] [address] [id number] [address] [place] [id number] Aug, [facility] [address] [facility] [id number] [address] [place] [id number] Aug, Other chronic pain G89.29 an d Back muscle spasm M62.830 [facility] [address] [id number] [address] [place] [id number] Aug, [facility] [address] [id number] [address] [place] [id number] Aug, Major depressive disorder in partial remission F32.4 ; FRANCIS (generalized anxiety disorder) F41.1 ; Restless leg syndrome G25.81 and Nonadherence to medication Z91.14 [facility] [address] [id number] [address] [place] [id number] Aug, [facility] [address] [id number] [address] [place] [id number] Jul, [facility] [address] [id number] [address] [place] [id number] Jul, [facility] [address] [id number] [address] [place] [id number] Jul, Major depressive disorder in partial remission F32.4 ; FRANCIS (generalized anxiety disorder) F41.1 ; Restless leg syndrome G25.81 and High blood pressure I10 [facility] [address] [id number] [address] [place] [id number] Jul, [facility] [address] [id number] [address] [place] [id number] Jul, [facility] [address] [id number] [address] [place] [id number] Jun, [facility] [address] [id number] [address] [place] [phone] May, [facility] [address] [id number] [address] [place] [id number] Apr, [facility] [address] [id number] [address] [place] [id number] Apr, [facility] [address] [id number] [address] [place] [id number] Mar, [facility] [address] [id number] [address] [place] [id number] Mar, Major depressive disorder in partial remission F32.4 ; FRANCIS (generalized anxiety disorder) F41.1 and Restless leg syndrome G25.81 [facility] [address] [id number] [address] [place] [id number] Mar, Obesity (BMI 30.0-34.9) E66. 9 [facility] [address] [id number] [address] [place] [id number] Jan, [facility] [address] [id number] [address] [place] [id number] Jan, Burn T30.0 [facility] [address] [id number] [address] [place] [id number] Dec, [facility] [address] [id number] [address] [place] [id number] Nov, [facility] [address] [id number] [address] [place] [id number] Nov, [facility] [address] [id number] [address] [place] [address] [id number] Nov, Dental examination Z01.20 [facility] [address] [id number] [address] [place] [id number] September, [facility] [address] [id number] [address] [place] [id number] September, Decay, teeth K02.9 and Denta l examination Z01.20 [facility] [address] [id number] [address] [place] [address] [id number] September, Dental examination Z01.20 [facility] [address] [facility] [id number] [address] [place] [id number] September, FRANCIS (generalized anxiety dis order) F41.1 ; Major depressive disorder in partial remission F32.4 and Restless leg syndrome G25.81 [facility] [address] [facility] [id number] [address] [place] [id number] Aug, [facility] [address] [facility] [id number] [address] [place] [id number] Jul, [facility] [address] [facility] [id number] [address] [place] [id number] Jul, Encounter to discuss test re sults Z71.2 [facility] [address] [facility] [id number] [address] [place] [id number] Jul, Pelvic pain R10.2 ; Screenin g for breast cancer Z12.31 and Obesity (BMI 30.0-34.9) E66.9 [facility] [address] [facility] [id number] [address] [place] [id number] Jul, Mild intermittent asthma wit hout complication J45.20 [place] [address] [facility] [id number] [address] [place] [id number] Jul, Major depressive disorder in partial remission F32.4 and FRANCIS (generalized anxiety disorder) F41.1 [facility] [address] [place] [id number] [address] [place] [id number] Jul, [facility] [address] [place] [id number] [address] [place] [id number] Jun, [place] [address] [facility] [id number] [address] [place] [id number] May, Major depressive disorder in partial remission F32.4 ; FRANCIS (generalized anxiety disorder) F41.1 and Restless leg syndrome G25.81 [facility] [address] [facility] [id number] [address] [place] [id number] Apr, [facility] [address] [facility] [id number] [address] [place] [id number] Mar, [facility] [address] [facility] [id number] [address] [place] [id number] Jan, Pain in thoracic spine M54.6 and Other chronic pain G89.29 [facility] [address] [place] [id number] [address] [place] [id number] 14 Jan, 2018 [facility] [address] [id number] [address] [place] [id number] Jan, Mild episode of recurrent ma saray depressive disorder F33.0 ; FRANCIS (generalized anxiety disorder) F41.1 and Restless leg syndrome G25.81 [facility] [address] [id number] [address] [place] [id number] Dec, [facility] [address] [id number] [address] [place] [id number] Dec, Hospital discharge follow-up Z09 [facility] [address] [id number] [address] [place] [id number] Nov, [facility] [address] [id number] [address] [place] [id number] Nov, [facility] [address] [id number] [address] [place] [id number] September, [facility] [address] [id number] [address] [place] [id number] September, [facility] [address] [id number] [address] [place] [id number] September, Major depressive disorder in partial remission F32.4 ; FRANCIS (generalized anxiety disorder) F41.1 and Restless leg syndrome G25.81 [facility] [address] [id number] [address] [place] [id number] September, [facility] [address] [id number] [address] [place] [id number] Jul, [facility] [address] [id number] [address] [place] [id number] Jul, Dorsalgia, unspecified M54.9 [facility] [address] [id number] [address] [place] [id number] Jul, Mild episode of recurrent ma saray depressive disorder F33.0 and FRANCIS (generalized anxiety disorder) F41.1 [facility] [address] [id number] [address] [place] [id number] 12 May, 2017 [facility] [address] [facility] [id number] [address] [place] [id number] May, Dysuria R30.0 and Acute cyst itis with hematuria N30.01 [facility] [address] [id number] [address] [place] [id number] Apr, [facility] [address] [id number] [address] [place] [id number] Apr, Major depressive disorder in partial remission F32.4 and FRANCIS (generalized anxiety disorder) F41.1 [facility] [address] [facility] [id number] [address] [place] [id number] Mar, Paroxysmal tachycardia I47.9 [facility] [address] [id number] [address] [place] [id number] Mar, Paroxysmal tachycardia I47.9 and Pain of left lower extremity M79.605 [facility] [address] [facility] [id number] [address] [place] [id number] Mar, FRANCIS (generalized anxiety dis order) F41.1 and Major depressive disorder in partial remission F32.4 [facility] [address] [id number] [address] [place] [id number] Jan, [facility] [address] [facility] [id number] [address] [place] [phone] Jan, [facility] [address] [facility] [id number] [address] [place] [phone] Jan, [facility] [address] [facility] [id number] [address] [place] [id number] Dec, Constipation, unspecified co nstipation type K59.00 [facility] [address] [facility] [id number] [address] [place] [id number] Dec, [facility] [address] [facility] [id number] [address] [place] [phone] Nov, [facility] [address] [facility] [id number] [address] [place] [phone] Nov, Major depressive disorder in partial remission F32.4 and FRANCIS (generalized anxiety disorder) F41.1 [facility] [address] [facility] [id number] [address] [place] [id number] Oct, Abdominal pain R10.9 and Slo w transit constipation K59.01 [facility] [address] [facility] [id number] [address] [place] [phone] Aug, Major depressive disorder in partial remission F32.4 ; FRANCIS (generalized anxiety disorder) F41.1 ; Conversion disorder (or hysterical neurosis, conversion type) F44.9 ; Dorsalgia, unspecified M54.9 and Long-term use of high-risk medication Z79.899 [place] [address] [facility] [id number] [address] [place] [id number] Aug, [facility] [address] [facility] [id number] [address] [place] [phone] Jul, Paroxysmal tachycardia I47.9 [place] [address] [facility] [id number] [address] [place] [id number] Jul, Paroxysmal tachycardia I47.9 [place] [address] [facility] [id number] [address] [place] [id number] Jun, [place] [address] [facility] [id number] [address] [place] [id number] Jun, Major depressive disorder in partial remission F32.4 ; FRANCIS (generalized anxiety disorder) F41.1 and Conversion disorder (or hysterical neurosis, conversion type) F44.9 [facility] [address] [facility] [id number] [address] [place] [id number] May, Pelvic pain R10.2 [facility] [address] [facility] [id number] [address] [place] [id number] Apr, Gastroenteritis K52.9 [facility] [address] [id number] [address] [place] [id number] 17 Apr, 2016 Blood in urine R31.9 and Acu te cystitis with hematuria N30.01 [facility] [address] [id number] [address] [place] [id number] Apr, Major depressive disorder in partial remission F32.4 ; FRANCIS (generalized anxiety disorder) F41.1 and Conversion disorder (or hysterical neurosis, conversion type) F44.9 [facility] [address] [id number] [address] [place] [id number] Apr, [facility] [address] [id number] [address] [place] [id number] Apr, Abnormal mammogram R92.8 [facility] [address] [id number] [address] [place] [phone] Mar, [facility] [address] [id number] [address] [place] [id number] Mar, Gastroenteritis K52.9 and Se izure disorder G40.909 [facility] [address] [id number] [address] [place] [id number] Dec, [facility] [address] [id number] [address] [place] [phone] Dec, Other headache syndrome G44. 89 [facility] [address] [id number] [address] [place] [phone] Dec, [facility] [address] [id number] [address] [place] [id number] Dec, Thoracic disc herniation M51 .24 [facility] [address] [id number] [address] [place] [id number] Dec, [facility] [address] [id number] [address] [place] [id number] Nov, Major depressive disorder in partial remission F32.4 and FRANCIS (generalized anxiety disorder) F41.1 [place] [address] [id number] [address] [place] [address], [place] [address] Nov, [facility] [address] [id number] [address] [place] [id number] Nov, Dorsalgia, unspecified M54.9 [facility] [address] [id number] [address] [place] [id number] Oct, [facility] [address] [id number] [address] [place] [id number] September, [facility] [address] [id number] [address] [place] [id number] Aug, [facility] [address] [id number] [address] [place] [id number] Aug, Major depressive disorder in partial remission F32.4 and FRANCIS (generalized anxiety disorder) F41.1 [facility] [address] [id number] [address] [place] [id number] Aug, [facility] [address] [id number] [address] [place] [id number] Jul, Abnormal mammogram R92.8 [facility] [address] [id number] [address] [place] [id number] Jul, [facility] [address] [id number] [address] [place] [id number] Jul, [facility] [address] [id number] [address] [place] [id number] Jul, [facility] [address] [id number] [address] [place] [id number] Jul, [facility] [address] [id number] [address] [place] [id number] Jul, [facility] [address] [id number] [address] [place] [id number] Jul, [facility] [address] [id number] [address] [place] [id number] Jun, Major depressive disorder in partial remission F32.4 and FRANCIS (generalized anxiety disorder) F41.1 [facility] [address] [id number] [address] [place] [id number] Jun, [facility] [address] [id number] [address] [place] [id number] May, [facility] [address] [id number] [address] [place] [id number] Apr, [facility] [address] [id number] [address] [place] [id number] Mar, Major depressive disorder, r ecurrent episode, moderate F33.1 ; PTSD (post-traumatic stress disorder) F43.10 and FRANCIS (generalized anxiety disorder) F41.1 [facility] [address] [id number] [address] [place] [id number] Mar, [facility] [address] [id number] [address] [place] [id number] Mar, [facility] [address] [id number] [address] [place] [id number] Mar, [facility] [address] [id number] [address] [place] [id number] Mar, [facility] [address] [id number] [address] [place] [phone] 23 Jan, 2015 [facility] [address] [id number] [address] [place] [id number] 15 Jan, 2015 [facility] [address] [id number] [address] [place] [phone] 15 Jan, 2015 [facility] [address] [facility] [id number] [address] [place] [id number] 14 Jan, 2015 Thoracic disc herniation 722 .11 [facility] [address] [id number] [address] [place] [id number] Dec, [facility] [address] [id number] [address] [place] [id number] Dec, [facility] [address] [id number] [address] [place] [id number] Dec, [facility] [address] [id number] [address] [place] [id number] Nov, [facility] [address] [id number] [address] [place] [id number] Nov, Generalized anxiety disorder 300.02 ; Posttraumatic stress disorder 309.81 and Major depressive disorder, recurrent episode, moderate 296.32 [facility] [address] [id number] [address] [place] [id number] Nov, [facility] [address] [id number] [address] [place] [id number] Nov, [facility] [address] [id number] [address] [place] [id number] Oct, [facility] [address] [id number] [address] [place] [id number] Oct, [facility] [address] [id number] [address] [place] [id number] Oct, [facility] [address] [id number] [address] [place] [id number] September, [facility] [address] [id number] [address] [place] [id number] September, [facility] [address] [id number] [address] [place] [id number] Aug, [facility] [address] [id number] [address] [place] [id number] Aug, [facility] [address] [id number] [address] [place] [id number] Jul, [facility] [address] [id number] [address] [place] [id number] Jul, [facility] [address] [id number] [address] [place] [address], [place] [id number] 17 Jul, 2014 [facility] [address] [id number] [address] [place] [address], [place] [id number] 17 Jul, 2014 [facility] [address] [id number] [address] [place] [address], [place] [id number] 16 Jul, 2014 [facility] [address] [id number] [address] [place] [address], [place] [id number] 16 Jul, 2014 [facility] [address] [id number] [address] [place] [address], [place] [address] Jul, [facility] [address] [id number] [address] [place] [address], [place] [address] Jul, [facility] [address] [id number] [address] [place] [address], [place] [address] Jul, [facility] [address] [id number] [address] [place] [address], [place] [address] Jul, [facility] [address] [id number] [address] [place] [address], [place] [address] Jun, [facility] [address] [id number] [address] [place] [address], [place] [address] Jun, [facility] [address] [id number] [address] [place] [address], [place] [address] Jun, [facility] [address] [id number] [address] [place] [address], [place] [address] May, [facility] [address] [id number] [address] [place] [address], [place] [address] Apr, [facility] [address] [id number] [address] [place] [address], [place] [address] Apr, [facility] [address] [id number] [address] [place] [address], [place] [address] Apr, [facility] [address] [id number] [address] [place] [address], [place] [address] Apr, [facility] [address] [id number] [address] [place] [address], [place] [address] Apr, [facility] [address] [id number] [address] [place] [address], [place] [address] Apr, [facility] [address] [id number] [address] [place] [address], [place] [address] Apr, [facility] [address] [id number] [address] [place] [address], [place] [address] Apr, [facility] [address] [id number] [address] [place] [address], [place] [address] Mar, [facility] [address] [id number] [address] [place] [address], [place] [address] Mar, [facility] [address] [id number] [address] [place] [address], [place] [address] Mar, [facility] [address] [id number] [address] [place] [address], [place] [address] Mar, [facility] [address] [id number] [address] [place] [address], [place] [address] Mar, [facility] [address] [id number] [address] [place] [address], [place] [address] Mar, [facility] [address] [id number] [address] [place] [address], [place] [address] Mar, [facility] [address] [id number] [address] [place] [address], [place] [address] Mar, [facility] [address] [id number] [address] [place] [address], [place] [address] Mar, [facility] [address] [id number] [address] [place] [address], [place] [address] Mar, [facility] [address] [id number] [address] [place] [address], [place] [address] 17 Mar, 2014 [facility] [address] [id number] [address] [place] [address], [place] [address] 14 Mar, 2013 [facility] [address] [id number] [address] [place] [address], [place] [address] 14 Mar, 2014 [facility] [address] [id number] [address] [place] [address], [place] [address] 07 Mar, 2013 [facility] [address] [id number] [address] [place] [address], [place] [address] 07 Mar, 2013 [facility] [address] [id number] [address] [place] [address], [place] [address] 06 Mar, 2014 [facility] [address] [id number] [address] [place] [address], [place] [address] 06 Mar, 2013 [facility] [address] [id number] [address] [place] [address], [place] [address] 19 Sep, 2013 [facility] [address] [id number] [address] [place] [address], [place] [address] 19 Sep, 2013 [facility] [address] [id number] [address] [place] [address], [place] [address] 09 Sep, 2013 [facility] [address] [id number] [address] [place] [address], [place] [address] 09 Sep, 2013 [facility] [address] [id number] [address] [place] [address], [place] [address] 05 Sep, 2013 [facility] [address] [id number] [address] [place] [address], [place] [address] 05 Sep, 2013 [facility] [address] [id number] [address] [place] [address], [place] [address] 05 Sep, 2013 [facility] [address] [id number] [address] [place] [address], [place] [address] 05 Sep, 2013 [facility] [address] [id number] [address] [place] [address], [place] [address] 03 Sep, 2013 [facility] [address] [id number] [address] [place] [address], [place] [address] Jan, [facility] [address] [id number] [address] [place] [address], [place] [address] Jan, [facility] [address] [id number] [address] [place] [address], [place] [address] Jan, [facility] [address] [id number] [address] [place] [address], [place] [address] Jan, [facility] [address] [id number] [address] [place] [address], [place] [address] Dec, [facility] [address] [id number] [address] [place] [address], [place] [address] Dec, [facility] [address] [id number] [address] [place] [address], [place] [address] Dec, [facility] [address] [id number] [address] [place] [address], [place] [address] Dec, [facility] [address] [id number] [address] [place] [address], [place] [address] Dec, [facility] [address] [id number] [address] [place] [address], [place] [address] Dec, [facility] [address] [place] [id number] Dec, [facility] [address] [place] [id number] Dec, [facility] [address] [id number] [address] [place] [address], [place] [address] Dec, [facility] [address] [id number] [address] [place] [address], [place] [address] Dec, [facility] [address] [id number] [address] [place] [address], [place] [address] Dec, [facility] [address] [id number] [address] [place] [address], [place] [address] Dec, [facility] [address] [id number] [address] [place] [address], [place] [address] Nov, [facility] [address] [id number] [facility] [address] Nov, [facility] [address] [id number] [facility] [address] Nov, [facility] [address] [id number] [facility] [address] Nov, [facility] [address] [id number] [address] [place] [address], [place] [address] Nov, [facility] [address] [id number] [address] [place] [address], [place] [address] Nov, [facility] [address] [id number] [address] [place] [address], [place] [address] Nov, [facility] [address] [id number] [address] [place] [address], [place] [address] Nov, [facility] [address] [id number] [address] [place] [address], [place] [address] Nov, [facility] [address] [id number] [address] [place] [address], [place] [address] Nov, [facility] [address] [id number] [address] [place] [address], [place] [address] Nov, [facility] [address] [id number] [address] [place] [address], [place] [address] Nov, [facility] [address] [id number] [address] [place] [address], [place] [address] Nov, [facility] [address] [id number] [address] [place] [address], [place] [address] Oct, [facility] [address] [id number] [address] [place] [address], [place] [address] Oct, [facility] [address] [id number] [address] [place] [address], [place] [address] Oct, [facility] [address] [id number] [facility] [address] Oct, [facility] [address] [id number] [address] [place] [address], [place] [address] Oct, [facility] [address] [id number] [address] [place] [address], [place] [address] Oct, [facility] [address] [id number] [address] [place] [address], [place] [address] Oct, [facility] [address] [id number] [address] [place] [address], [place] [address] Oct, [facility] [address] [id number] [address] [place] [address], [place] [address] Oct, [facility] [address] [id number] [address] [place] [address], [place] [address] Oct, [facility] [address] [id number] [address] [place] [address], [place] [address] Oct, [facility] [address] [id number] [address] [place] [address], [place] [address] Oct, [facility] [address] [id number] [address] [place] [address], [place] [address] September, [facility] [address] [id number] [address] [place] [address], [place] [address] September, [facility] [address] [id number] [address] [place] [address], [place] [address] September, [facility] [address] [id number] [address] [place] [address], [place] [address] September, [facility] [address] [id number] [address] [place] [address], [place] [address] Aug, [facility] [address] [id number] [address] [place] [address], [place] [address] Aug, [facility] [address] [id number] [address] [place] [address], [place] [address] Aug, [facility] [address] [id number] [address] [place] [address], [place] [address] Aug, [facility] [address] [id number] [address] [place] [address], [place] [address] Aug, [facility] [address] [id number] [address] [place] [address], [place] [address] Aug, [facility] [address] [id number] [address] [place] [address], [place] [address] Aug, [facility] [address] [id number] [address] [place] [address], [place] [address] Jul, [facility] [address] [id number] [address] [place] [address], [place] [address] Jul, [facility] [address] [id number] [address] [place] [address], [place] [address] Jul, [facility] [address] [id number] [address] [place] [address], [place] [address] Jul, [facility] [address] [id number] [address] [place] [address], [place] [address] Jul, [facility] [address] [id number] [address] [place] [address], [place] [address] Jul, [facility] [address] [id number] [address] [place] [address], [place] [address] Jul, [facility] [address] [id number] [address] [place] [address], [place] [address] Jul, [facility] [address] [id number] [address] [place] [address], [place] [address] Jul, [facility] [address] [id number] [address] [place] [address], [place] [address] Jul, [facility] [address] [id number] [address] [place] [address], [place] [address] Jul, [facility] [address] [id number] [address] [place] [address], [place] [address] 18 Jul, 2013 [facility] [address] [id number] [address] [place] [address], [place] [address] 14 Jul, 2013 [facility] [address] [id number] [address] [place] [address], [place] [address] 14 Jul, 2013 [facility] [address] [id number] [address] [place] [address], [place] [address] 11 Jul, 2013 [facility] [address] [id number] [address] [place] [address], [place] [address] 11 Jul, 2013 [facility] [address] [id number] [address] [place] [address], [place] [address] Jul, [facility] [address] [id number] [address] [place] [address], [place] [address] Jul, [facility] [address] [id number] [address] [place] [address], [place] [address] 31 Jun, 2013 [facility] [address] [id number] [address] [place] [address], [place] [address] 31 Jun, 2013 [facility] [address] [id number] [address] [place] [address], [place] [address] 15 Jun, 2013 [facility] [address] [id number] [address] [place] [address], [place] [address] 15 Jun, 2013 [facility] [address] [id number] [address] [place] [address], [place] [address] 14 Jun, 2013 [facility] [address] [id number] [address] [place] [address], [place] [address] 14 Jun, 2013 [facility] [address] [id number] [address] [place] [address], [place] [address] 14 Jun, 2013 [facility] [address] [id number] [address] [place] [address], [place] [address] 14 Jun, 2013 [facility] [address] [id number] [address] [place] [address], [place] [address] 14 Jun, 2013 [facility] [address] [id number] [address] [place] [address], [place] [address] 14 Jun, 2013 [facility] [address] [id number] [address] [place] [address], [place] [address] 27 May, 2013 [facility] [address] [id number] [address] [place] [address], [place] [address] 27 May, 2013 [facility] [address] [id number] [address] [place] [address], [place] [address] 26 May, 2013 [facility] [address] [id number] [address] [place] [address], [place] [address] 19 May, 2013 [facility] [address] [id number] [address] [place] [address], [place] [address] 19 May, 2013 [facility] [address] [id number] [address] [place] [address], [place] [address] 16 May, 2013 [facility] [address] [id number] [address] [place] [address], [place] [address] 16 May, 2013 [facility] [address] [id number] [address] [place] [address], [place] [address] 16 May, 2013 [facility] [address] [id number] [address] [place] [address], [place] [address] 16 May, 2013 [facility] [address] [id number] [address] [place] [address], [place] [address] 13 May, 2013 [facility] [address] [id number] [address] [place] [address], [place] [address] 13 May, 2013 [facility] [address] [id number] [address] [place] [address], [place] [address] 11 May, 2013 [facility] [address] [id number] [address] [place] [address], [place] [address] 20 Apr, 2013 [facility] [address] [id number] [address] [place] [address], [place] [address] 18 Apr, 2013 [facility] [address] [id number] [address] [place] [address] 18 Apr, 2013 [facility] [address] [id number] [address] [place] [address], [place] [address] Apr, [facility] [address] [id number] [address] [place] [address] Apr, [facility] [address] [id number] [address] [place] [address], [place] [address] 08 Apr, 2013 [facility] [address] [id number] [address] [place] [address] 08 Apr, 2013 [facility] [address] [id number] [address] [place] [address], [place] [address] Apr, [facility] [address] [id number] [address] [place] [address] Apr, [facility] [address] [id number] [address] [place] [address] Apr, [facility] [address] [id number] [address] [place] [address] Apr, [facility] [address] [id number] [address] [place] [address] Mar, [facility] [address] [id number] [address] [place] [address] Mar, [facility] [address] [id number] [address] [place] [address] Mar, [facility] [address] [id number] [address] [place] [address] Mar, [facility] [address] [id number] [address] [place] [address] Mar, [facility] [address] [id number] [address] [place] [address] Mar, [facility] [address] [id number] [address] [place] [address] Mar, [facility] [address] [id number] [address] [place] [address], [place] [address] 18 Mar, 2013 [facility] [address] [id number] [address] [place] [address], [place] [address] 18 Mar, 2013 [facility] [address] [id number] [address] [place] [address], [place] [address] 15 Mar, 2013 [facility] [address] [id number] [address] [place] [address], [place] [address] 15 Mar, 2013 [facility] [address] [id number] [address] [place] [address], [place] [address] Mar, [facility] [address] [id number] [address] [place] [address], [place] [address] 30 Jan, 2013 [facility] [address] [id number] [address] [place] [address], [place] [address] 25 Jan, 2013 [facility] [address] [id number] [address] [place] [address], [place] [address] Jan, [facility] [address] [id number] [address] [place] [address], [place] [address] Jan, [facility] [address] [id number] [address] [place] [address], [place] [address] Dec, [facility] [address] [id number] [address] [place] [address], [place] [address] Dec, [facility] [address] [id number] [address] [place] [address], [place] [address] Dec, [facility] [address] [id number] [address] [place] [address], [place] [address] Dec, [facility] [address] [id number] [address] [place] [address], [place] [address] Dec, [facility] [address] [id number] [address] [place] [address], [place] [address] Dec, [facility] [address] [id number] [address] [place] [address], [place] [address] Dec, [facility] [address] [id number] [address] [place] [address], [place] [address] Dec, [facility] [address] [id number] [address] [place] [address], [place] [address] Dec, [facility] [address] [id number] [address] [place] [address], [place] [address] Nov, [facility] [address] [id number] [address] [place] [address], [place] [address] Nov, [facility] [address] [id number] [address] [place] [address], [place] [address] Nov, [facility] [address] [id number] [address] [place] [address], [place] [address] Nov, [facility] [address] [id number] [address] [place] [address], [place] [address] Nov, [facility] [address] [id number] [address] [place] [address], [place] [address] Nov, [facility] [address] [id number] [address] [place] [address], [place] [address] Nov, [facility] [address] [id number] [address] [place] [address], [place] [address] Nov, [facility] [address] [id number] [address] [place] [address], [place] [address] Oct, [facility] [address] [id number] [address] [place] [address], [place] [address] Oct, [facility] [address] [id number] [address] [place] [address], [place] [address] Oct, [facility] [address] [id number] [address] [place] [address], [place] [address] Oct, [facility] [address] [id number] [address] [place] [address], [place] [address] Oct, [facility] [address] [id number] [address] [place] [address], [place] [address] 21 Oct, 2012 [facility] [address] [id number] [address] [place] [address], [place] [address] 20 Oct, 2012 [facility] [address] [id number] [address] [place] [address], [place] [address] 20 Oct, 2012 [facility] [address] [id number] [address] [place] [address], [place] [address] 19 Oct, 2012 [facility] [address] [id number] [address] [place] [address], [place] [address] 18 Oct, 2012 [facility] [address] [id number] [address] [place] [address], [place] [address] 17 Oct, 2012 [facility] [address] [id number] [address] [place] [address], [place] [address] 14 Oct, 2012 [facility] [address] [id number] [address] [place] [address], [place] [address] 07 Oct, 2012 [facility] [address] [id number] [address] [place] [address], [place] [address] 30 Sep, 2012 [facility] [address] [id number] [address] [place] [address], [place] [address] 22 Sep, 2012 [facility] [address] [id number] [address] [place] [address], [place] [address] 15 Sep, 2012 [facility] [address] [id number] [address] [place] [address], [place] [address] 25 Aug, 2012 [facility] [address] [id number] [address] [place] [address], [place] [address] 24 Aug, 2012 [facility] [address] [id number] [address] [place] [address], [place] [address] 18 Aug, 2012 [facility] [address] [id number] [address] [place] [address], [place] [address] 18 Aug, 2012 [facility] [address] [id number] [address] [place] [address], [place] [address] 18 Aug, 2012 [facility] [address] [id number] [address] [place] [address], [place] [address] 08 Aug, 2012 [facility] [address] [id number] [address] [place] [address], [place] [address] Aug, [facility] [address] [id number] [address] [place] [address], [place] [address] Jul, [facility] [address] [id number] [address] [place] [address], [place] [address] Jul, [facility] [address] [id number] [address] [place] [address], [place] [address] Jul, [facility] [address] [id number] [address] [place] [address], [place] [address] Jul, [facility] [address] [id number] [address] [place] [address], [place] [address] Jul, [facility] [address] [id number] [address] [place] [address], [place] [address] Jul, [facility] [address] [id number] [address] [place] [address], [place] [address] Jul, [facility] [address] [id number] [address] [place] [address], [place] [address] Jul, [facility] [address] [id number] [address] [place] [address], [place] [address] Jul, [facility] [address] [id number] [address] [place] [address], [place] [address] Jul, [facility] [address] [id number] [address] [place] [address], [place] [address] Jul, [facility] [address] [id number] [address] [place], [place] [address], [place] [address] 06 Jul, 2012 [facility] [address] [id number] [address] [place] [address], [place] [address] Jul, [facility] [address] [id number] [address] [place] [address], [place] [address] 24 Jun, 2012 [facility] [address] [id number] [address] [place] [address], [place] [address] Jun, [facility] [address] [id number] [address] [place] [address], [place] [address] 19 Jun, 2012 [facility] [address] [id number] [address] [place] [address], [place] [address] 17 Jun, 2012 [facility] [address] [id number] [address] [place] [address], [place] [address] 15 Jun, 2012 [facility] [address] [id number] [address] [place] [address], [place] [address] 14 Jun, 2012 [facility] [address] [id number] [address] [place] [address], [place] [address] 08 Jun, 2012 [facility] [address] [id number] [address] [place] [address], [place] [address] 28 May, 2012 [facility] [address] [id number] [address] [place] [address], [place] [address] May, [facility] [address] [id number] [address] [place] [address], [place] [address] May, [facility] [address] [id number] [address] [place] [address], [place] [address] May, [facility] [address] [id number] [address] [place] [address], [place] [address] May, [facility] [address] [id number] [address] [place] [address], [place] [address] 24 May, 2012 [facility] [address] [id number] [address] [place] [address], [place] [address] May, [facility] [address] [id number] [address] [place] [address], [place] [address] May, [facility] [address] [id number] [address] [place] [address], [place] [address] May, [facility] [address] [id number] [address] [place] [address], [place] [address] May, [facility] [address] [id number] [address] [place] [address], [place] [address] Apr, [facility] [address] [id number] [address] [place] [address], [place] [address] Apr, [facility] [address] [id number] [address] [place] [address], [place] [address] Apr, [facility] [address] [id number] [address] [place] [address], [place] [address] Apr, [facility] [address] [id number] [address] [place] [address], [place] [address] Apr, [facility] [address] [id number] [address] [place] [address], [place] [address] Apr, [facility] [address] [id number] [address] [place] [address], [place] [address] Apr, [facility] [address] [id number] [address] [place] [address], [place] [address] Apr, [facility] [address] [id number] [address] [place] [address], [place] [address] Apr, [facility] [address] [id number] [address] [place] [address], [place] [address] Apr, [facility] [address] [id number] [address] [place] [address], [place] [address] Apr, [facility] [address] [id number] [address] [place] [address], [place] [address] Apr, [facility] [address] [id number] [address] [place] [address], [place] [address] Mar, [facility] [address] [id number] [address] [place] [address], [place] [address] Mar, [facility] [address] [id number] [address] [place] [address], [place] [address] Mar, 2011 [facility] [address] [id number] [address] [place] [address], [place] [address] Mar, 2011 [facility] [address] [id number] [address] [place] [address] Mar, 2011 [facility] [address] [id number] [address] [place] [address] Mar, 2011 [facility] [address] [id number] [address] [place] [address] Mar, 2011 [facility] [address] [id number] [address] [place] [address], [place] [address] Mar, 2011 [facility] [address] [id number] [address] [place] [address] Mar, 2011 [facility] [address] [id number] [address] [place] [address] Mar, 2011 [facility] [address] [id number] [address] [place] [id number] Mar, [facility] [address] [id number] [address] [place] [address] Mar, [facility] [address] [id number] [address] [place] [address] Mar, [facility] [address] [id number] [address] [place] [address] Mar, [facility] [address] [id number] [address] [place] [address] Mar, [facility] [address] [id number] [address] [place] [address], [place] [address] Mar, [facility] [address] [id number] [address] [place] [phone] Jan, [facility] [address] [id number] [address] [place] [id number] 24 Jan, 2012 [facility] [address] [id number] [address] [place] [address], [place] [address] 22 Jan, 2011 [facility] [address] [id number] [address] [place] [address], [place] [address] 22 Jan, 2011 [facility] [address] [id number] [address] [place] [address], [place] [address] 21 Jan, 2012 [facility] [address] [id number] [address] [place] [address], [place] [address] 18 Jan, 2011 [facility] [address] [id number] [address] [place] [address], [place] [address] 14 Jan, 2012 [facility] [address] [id number] [address] [place] [address], [place] [address] 07 Jan, 2012 [facility] [address] [id number] [address] [place] [address], [place] [address] 15 Dec, 2011 [facility] [address] [id number] [address] [place] [address], [place] [address] 10 Dec, 2011 [facility] [address] [id number] [address] [place] [address], [place] [address] Dec, [facility] [address] [id number] [address] [place] [address], [place] [address] Dec, [facility] [address] [id number] [address] [place] [address], [place] [address] Dec, [facility] [address] [id number] [address] [place] [address], [place] [address] Dec, [facility] [address] [id number] [address] [place] [address], [place] [address] Dec, [facility] [address] [id number] [address] [place] [address], [place] [address] Nov, [facility] [address] [id number] [address] [place] [address], [place] [address] Oct, [facility] [address] [id number] [address] [place] [address], [place] [address] Aug, [facility] [address] [id number] [address] [place] [address], [place] [address] 22 Jul, 2011 [facility] [address] [id number] [address] [place] [address], [place] [address] 19 Jul, 2011 [facility] [address] [id number] [address] [place] [address], [place] [address] 16 Jul, 2011 [facility] [address] [id number] [address] [place] [address], [place] [address] 14 Jul, 2011 [facility] [address] [id number] [address] [place] [address], [place] [address] 07 Jul, 2011 [facility] [address] [id number] [address] [place] [address], [place] [address] 02 Jul, 2011 [facility] [address] [id number] [address] [place] [address], [place] [address] 21 Jul, 2011 [facility] [address] [id number] [address] [place] [address], [place] [address] 15 Jul, 2011 [facility] [address] [id number] [address] [place] [address], [place] [address] 13 Jul, 2011 [facility] [address] [id number] [address] [place] [address], [place] [address] 03 Jul, 2011 [facility] [address] [id number] [address] [place] [address], [place] [address] 02 Jul, 2011 [facility] [address] [id number] [address] [place] [address], [place] [address] 24 Jun, 2011 [facility] [address] [id number] [address] [place] [address], [place] [address] 24 Jun, 2011 [facility] [address] [id number] [address] [place] [address], [place] [address] 13 Jun, 2011 [facility] [address] [id number] [address] [place] [address], [place] [address] 11 Jun, 2011 [facility] [address] [id number] [address] [place] [address], [place] [address] 06 Jun, 2011 [facility] [address] [id number] [address] [place] [address], [place] [address] Jun, [facility] [address] [id number] [address] [place] [address], [place] [address] Jun, [facility] [address] [id number] [address] [place] [address], [place] [address] May, [facility] [address] [id number] [address] [place] [address], [place] [address] May, [facility] [address] [id number] [address] [place] [address], [place] [address] May, [facility] [address] [id number] [address] [place] [address], [place] [address] May, [facility] [address] [id number] [address] [place] [address], [place] [address] May, [facility] [address] [id number] [address] [place] [address], [place] [address] May, [facility] [address] [id number] [address] [place] [address], [place] [address] May, [facility] [address] [id number] [address] [place] [address], [place] [address] May, [facility] [address] [id number] [address] [place] [address], [place] [address] May, [facility] [address] [id number] [address] [place] [address], [place] [address] May, [facility] [address] [id number] [address] [place] [address], [place] [address] 15 Apr, 2011 [facility] [address] [id number] [address] [place] [address], [place] [address] 15 Apr, 2011 [facility] [address] [id number] [address] [place] [address], [place] [address] Apr, [facility] [address] [facility] [id number] [address] [place] [address] Apr, [facility] [address] [facility] [id number] [address] [place] [address] Mar, [facility] [address] [facility] [id number] [address] [place] [address] Mar, [facility] [address] [facility] [id number] [address] [place] [address] Mar, [facility] [address] [facility] [id number] [address] [place] [address] Mar, IMMUNIZATIONS No Known Immunizations SOCIAL HISTORY [...]
--- OUTSIDE RECORDS SUMMARY | 2020-01-03 17:57 | XMS REPORT ---
Author Author Pattie VIEIRA Organization [facility] Address [address] [place] [address] Care Team Providers Care Irrigation Service Technician Name Role Phone REYNALDO VIEIRA Unavailable PROBLEMS Type Condition ICD9-CM Code NJS36-SR Code Onset Dates Condition S tatus SNOMED Code Problem FRANCIS (generalized anxiety disorder) F41.1 Active 25894892 Problem Thoracic disc herniation M51.24 Activ e 766803760 Problem Major depressive disorder in partial remission F32 .4 Active 14013221 Problem Seizure disorder G40.909 Active 128 545724 Problem Conversion disorder (or hysterical neurosis, conversion ty pe) F44.9 Active 07379653 Problem Constipation, unspecified constipation type K59.00 Active 76786706 Problem Mild episode of recurrent major depressive disorder F33.0 Active 422509739 Problem Restless leg syndrome G25.81 Active 46149483 Problem Nonadherence to medication Z91.14 Act vivian 199101430 Problem Slow transit constipation K59.01 Acti ve 66894276 Problem Atrophic vaginitis N95.2 Active 5 2690489 Problem Paroxysmal tachycardia I47.9 Active 48665352 Problem Other chronic pain G89.29 Active 8 6973769 Problem Mild intermittent asthma without complication J45. 20 Active 445532666 Problem Obesity (BMI 30.0-34.9) E66.9 Active 019255872401605 Problem High blood pressure I10 Active 18043658 ALLERGIES No Information ENCOUNTERS Encounter Location Date Diagnosis [place] [id number] [id number] [place] [id number] 26 Oct, 2019 Breast cancer screening Z12.[address] 340[address] [id number] [place] [address] 08 Oct, 2019 Breast cancer screening Z12. 39 [facility] [address] [place] [address] [id number] [address] [place] [address] 05 Oct, 2019 [facility] [address] [id number] [address] [place] [phone] Oct, [facility] [address] [id number] [address] [place] [phone] September, [facility] [address] [id number] [address] [place] [phone] September, [facility] [address] [id number] [address] [place] [phone] September, Well woman exam with routine gynecological exam Z01.419 and Atrophic vaginitis N95.2 [facility] [address] [id number] [address] [place] [phone] September, Major depressive disorder in partial remission F32.4 ; FRANCIS (generalized anxiety disorder) F41.1 ; Restless leg syndrome G25.81 and Nonadherence to medication Z91.14 [facility] [address] [facility] [id number] [address] [place] [phone] September, [facility] [address] [id number] [address] [place] [phone] Aug, [facility] [address] [id number] Aug, Dental examination Z01.20 [facility] [address] [place] [id number] Aug, Dental examination Z01.20 an d Caries K02.9 [facility] [address] [id number] [address] [place] [phone] Aug, [facility] [address] [id number] [address] [place] [phone] Aug, [facility] [address] [facility] [id number] [address] [place] [phone] Aug, Other chronic pain G89.29 an d Back muscle spasm M62.830 [facility] [address] [id number] [address] [place] [phone] Aug, [facility] [address] [id number] [address] [place] [phone] Aug, Major depressive disorder in partial remission F32.4 ; FRANCIS (generalized anxiety disorder) F41.1 ; Restless leg syndrome G25.81 and Nonadherence to medication Z91.14 [facility] [address] [id number] [address] [place] [phone] Aug, [facility] [address] [id number] [address] [place] [phone] Jul, [facility] [address] [id number] [address] [place] [phone] Jul, [facility] [address] [id number] [address] [place] [phone] Jul, Major depressive disorder in partial remission F32.4 ; FRANCIS (generalized anxiety disorder) F41.1 ; Restless leg syndrome G25.81 and High blood pressure I10 [facility] [address] [id number] [address] [place] [phone] Jul, [facility] [address] [id number] [address] [place] [phone] Jul, [facility] [address] [id number] [address] [place] [phone] Jun, [facility] [address] [id number] [address] [place] [phone] May, [facility] [address] [id number] [address] [place] [address] Apr, [facility] [address] [id number] [address] [place] [phone] Apr, [facility] [address] [id number] [address] [place] [phone] Mar, [facility] [address] [id number] [address] [place] [phone] Mar, Major depressive disorder in partial remission F32.4 ; FRANCIS (generalized anxiety disorder) F41.1 and Restless leg syndrome G25.81 [facility] [address] [id number] [address] [place] [phone] Mar, Obesity (BMI 30.0-34.9) E66. 9 [facility] [address] [id number] [address] [place] [phone] Jan, [facility] [address] [id number] [address] [place] [phone] Jan, Burn T30.0 [facility] [address] [id number] [address] [place] [phone] Dec, [facility] [address] [id number] [address] [place] [phone] Nov, [facility] [address] [id number] [address] [place] [phone] Nov, [facility] [id number] [place] [address] [id number] Nov, Dental examination Z01.20 [facility] [address] [id number] [address] [place] [phone] September, [facility] [id number] [place] [id number] September, Decay, teeth K02.9 and Denta l examination Z01.20 [facility] [id number] [place] [address] [id number] September, Dental examination Z01.20 [facility] [address] [id number] [address] [place] [phone] September, FRANCIS (generalized anxiety dis order) F41.1 ; Major depressive disorder in partial remission F32.4 and Restless leg syndrome G25.81 [facility] [address] [id number] [address] [place] [phone] Aug, [facility] [address] [phone] Jul, [place] [address] [address] Jul, Encounter to discuss test re sults Z71.2 [place] [address] [place] [id number] [place] [address] Jul, Pelvic pain R10.2 ; Screenin g for breast cancer Z12.31 and Obesity (BMI 30.0-34.9) E66.9 [place] [address] [address] Jul, Mild intermittent asthma wit hout complication J45.20 [place] [address] [address] Jul, Major depressive disorder in partial remission F32.4 and FRANCIS (generalized anxiety disorder) F41.1 [place] [address] [address] Jul, [place] [address] [address] Jun, [place] [address] [address] May, Major depressive disorder in partial remission F32.4 ; FRANCIS (generalized anxiety disorder) F41.1 and Restless leg syndrome G25.81 [place] [address] [address] Apr, [place] [address] [address] Mar, [facility] [address] [place] [id number] [place] [phone] 21 Jan, 2018 Pain in thoracic spine M54.6 and Other chronic pain G89.29 [place] [address] [address] Jan, [facility] [address] [id number] [address] [place] [phone] Jan, Mild episode of recurrent ma saray depressive disorder F33.0 ; FRANCIS (generalized anxiety disorder) F41.1 and Restless leg syndrome G25.81 [facility] [address] [id number] [address] [place] [phone] Dec, [facility] [address] [id number] [address] [place] [phone] Dec, Hospital discharge follow-up Z09 [facility] [address] [id number] [address] [place] [address], [place] [address] Nov, [facility] [address] [id number] [address] [place] [phone] Nov, [facility] [address] [id number] [address] [place] [phone] September, [facility] [address] [id number] [address] [place] [phone] September, [facility] [address] [id number] [address] [place] [phone] September, Major depressive disorder in partial remission F32.4 ; FRANCIS (generalized anxiety disorder) F41.1 and Restless leg syndrome G25.81 [facility] [address] [id number] [address] [place] [phone] September, [facility] [address] [id number] [address] [place] [phone] Jul, [facility] [address] [id number] [address] [place] [phone] Jul, Dorsalgia, unspecified M54.9 [facility] [address] [id number] [address] [place] [phone] Jul, Mild episode of recurrent ma saray depressive disorder F33.0 and FRANCIS (generalized anxiety disorder) F41.1 [facility] [address] [facility] [id number] [address] [place] [phone] May, [facility] [address] [facility] [id number] [address] [place] [phone] May, Dysuria R30.0 and Acute cyst itis with hematuria N30.01 [facility] [address] [facility] [id number] [address] [place] [phone] Apr, [facility] [address] [facility] [id number] [address] [place] [phone] Apr, Major depressive disorder in partial remission F32.4 and FRANCIS (generalized anxiety disorder) F41.1 [place] [address] [place] [id number] [place] [address] Mar, Paroxysmal tachycardia I47.9 [place] [address] [place] [id number] [address] [place] [phone] Mar, Paroxysmal tachycardia I47.9 and Pain of left lower extremity M79.605 [facility] [address] [place] [id number] [address] [place] [phone] Mar, FRANCIS (generalized anxiety dis order) F41.1 and Major depressive disorder in partial remission F32.4 [facility] [address] [place] [id number] [address] [place] [phone] Jan, [facility] [address] [facility] [id number] [address] [place] [phone] 14 Jan, 2017 [facility] [address] [place] [id number] [address] [place] [phone] Jan, [facility] [address] [facility] [id number] [address] [place] [phone] Dec, Constipation, unspecified co nstipation type K59.00 [facility] [address] [facility] [id number] [address] [place] [phone] Dec, [facility] [address] [place] [id number] [address] [place] [phone] Nov, [facility] [address] [place] [id number] [address] [place] [phone] Nov, Major depressive disorder in partial remission F32.4 and FRANCIS (generalized anxiety disorder) F41.1 [facility] [address] [facility] [id number] [address] [place] [phone] Oct, Abdominal pain R10.9 and Slo w transit constipation K59.01 [facility] [address] [facility] [id number] [address] [place] [phone] Aug, Major depressive disorder in partial remission F32.4 ; FRANCIS (generalized anxiety disorder) F41.1 ; Conversion disorder (or hysterical neurosis, conversion type) F44.9 ; Dorsalgia, unspecified M54.9 and Long-term use of high-risk medication Z79.899 [place] [id number] [place] [id number] [address] [place] [phone] Aug, [facility] [address] [place] [id number] [address] [place] [phone] Jul, Paroxysmal tachycardia I47.9 [place] [address] [place] [id number] [place] [phone] Jul, Paroxysmal tachycardia I47.9 [place] [id number] [facility] [id number] [address] [place] [phone] Jun, [facility] [address] [place] [id number] [address] [place] [phone] Jun, Major depressive disorder in partial remission F32.4 ; FRANCIS (generalized anxiety disorder) F41.1 and Conversion disorder (or hysterical neurosis, conversion type) F44.9 [facility] [address] [facility] [id number] [address] [place] [phone] May, Pelvic pain R10.2 [facility] [address] [facility] [id number] [address] [place] [phone] Apr, Gastroenteritis K52.9 [facility] [address] [place] [id number] [address] [place] [phone] 17 Apr, 2016 Blood in urine R31.9 and Acu te cystitis with hematuria N30.01 [facility] [address] [id number] [address] [place] [phone] Apr, Major depressive disorder in partial remission F32.4 ; FRANCIS (generalized anxiety disorder) F41.1 and Conversion disorder (or hysterical neurosis, conversion type) F44.9 [facility] [address] [id number] [address] [place] [phone] Apr, [facility] [address] [id number] [address] [place] [phone] Apr, Abnormal mammogram R92.8 [facility] [address] [facility] [id number] [address] [place] [phone] Mar, [facility] [address] [facility] [id number] [address] [place] [phone] Mar, Gastroenteritis K52.9 and Se izure disorder G40.909 [facility] [address] [id number] [address] [place] [phone] Dec, [facility] [address] [id number] [address] [place] [phone] Dec, Other headache syndrome G44. 89 [facility] [address] [id number] [address] [place] [phone] Dec, [facility] [address] [facility] [id number] [address] [place] [phone] Dec, Thoracic disc herniation M51 .24 [facility] [address] [id number] [address] [place] [phone] Dec, [facility] [address] [facility] [id number] [address] [place] [phone] Nov, Major depressive disorder in partial remission F32.4 and FRANCIS (generalized anxiety disorder) F41.1 [facility] [address] [id number] [address] [place] [phone] 13 Nov, 2015 [facility] [address] [id number] [address] [place] [phone] Nov, Dorsalgia, unspecified M54.9 [facility] [address] [id number] [address] [place] [phone] Oct, [facility] [address] [id number] [address] [place] [phone] September, [facility] [address] [id number] [address] [place] [phone] Aug, [facility] [address] [id number] [address] [place] [phone] Aug, Major depressive disorder in partial remission F32.4 and FRANCIS (generalized anxiety disorder) F41.1 [facility] [address] [id number] [address] [place] [phone] Aug, [facility] [address] [id number] [address] [place] [phone] Jul, Abnormal mammogram R92.8 [facility] [address] [id number] [address] [place] [phone] Jul, [facility] [address] [id number] [address] [place] [phone] Jul, [facility] [address] [id number] [address] [place] [phone] Jul, [facility] [address] [id number] [address] [place] [phone] Jul, [facility] [address] [id number] [address] [place] [phone] Jul, [facility] [address] [id number] [address] [place] [phone] Jul, [facility] [address] [id number] [address] [place] [phone] Jun, Major depressive disorder in partial remission F32.4 and FRANCIS (generalized anxiety disorder) F41.1 [facility] [address] [id number] [address] [place] [phone] Jun, [facility] [address] [id number] [address] [place] [phone] May, [facility] [address] [id number] [address] [place] [phone] Apr, [facility] [address] [id number] [address] [place] [phone] Mar, Major depressive disorder, r ecurrent episode, moderate F33.1 ; PTSD (post-traumatic stress disorder) F43.10 and FRANCIS (generalized anxiety disorder) F41.1 [facility] [address] [id number] [address] [place] [phone] Mar, [facility] [address] [id number] [address] [place] [phone] Mar, [facility] [address] [id number] [address] [place] [phone] Mar, [facility] [address] [id number] [address] [place] [phone] Mar, [facility] [address] [id number] [address] [place] [phone] Jan, [facility] [address] [id number] [address] [place] [phone] 15 Jan, 2015 [facility] [address] [id number] [address] [place] [phone] 15 Jan, 2015 [facility] [address] [id number] [address] [place] [phone] 14 Jan, 2015 Thoracic disc herniation 722 .11 [facility] [address] [id number] [address] [place] [phone] Dec, [facility] [address] [id number] [address] [place] [phone] Dec, [facility] [address] [id number] [address] [place] [phone] Dec, [facility] [address] [id number] [address] [place] [phone] Nov, [facility] [address] [id number] [address] [place] [phone] Nov, Generalized anxiety disorder 300.02 ; Posttraumatic stress disorder 309.81 and Major depressive disorder, recurrent episode, moderate 296.32 [facility] [address] [id number] [address] [place] [phone] Nov, [facility] [address] [id number] [address] [place] [phone] Nov, [facility] [address] [id number] [address] [place] [phone] Oct, [facility] [address] [id number] [address] [place] [phone] Oct, [facility] [address] [id number] [address] [place] [phone] Oct, [facility] [address] [id number] [address] [place] [phone] September, [facility] [address] [id number] [address] [place] [phone] September, [facility] [address] [id number] [address] [place] [phone] Aug, [facility] [address] [id number] [address] [place] [id number] Aug, [facility] [address] [id number] [address] [place] [phone] Jul, [facility] [address] [id number] [address] [place] [phone] Jul, [facility] [address] [id number] [address] [place] [address], [place] [id number] 17 Jul, 2014 [facility] [address] [id number] [address] [place] [address], [place] [phone] 17 Jul, 2014 [facility] [address] [id number] [address] [place] [address], [place] [phone] 16 Jul, 2014 [facility] [address] [id number] [address] [place] [address], [place] [phone] 16 Jul, 2014 [facility] [address] [id number] [address] [place] [address], [place] [id number] 19 Jul, 2014 [facility] [address] [id number] [address] [place] [address], [place] [phone] Jul, [facility] [address] [id number] [address] [place] [address], [place] [phone] Jul, [facility] [address] [id number] [address] [place] [address], [place] [address] Jul, [facility] [address] [id number] [address] [place] [address], [place] [id number] Jun, [facility] [address] [id number] [address] [place] [address], [place] [phone] Jun, [facility] [address] [id number] [address] [place] [address], [place] [address] Jun, [facility] [address] [id number] [address] [place] [address], [place] [id number] May, [facility] [address] [id number] [address] [place] [address], [place] [address] Apr, [facility] [address] [id number] [address] [place] [address], [place] [address] Apr, [facility] [address] [id number] [address] [place] [address], [place] [phone] Apr, [facility] [address] [id number] [address] [place] [address], [place] [address] Apr, [facility] [address] [id number] [address] [place] [address], [place] [address] Apr, [facility] [address] [id number] [address] [place] [address], [place] [address] Apr, [facility] [address] [id number] [address] [place] [address], [place] [phone] Apr, [facility] [address] [id number] [address] [place] [address], [place] [address] Apr, [facility] [address] [id number] [address] [place] [address], [place] [address] Mar, [facility] [address] [id number] [address] [place] [address], [place] [address] Mar, [facility] [address] [id number] [address] [place] [address], [place] [address] Mar, [facility] [address] [id number] [address] [place] [address], [place] [address] Mar, [facility] [address] [id number] [address] [place] [address], [place] [address] Mar, [facility] [address] [id number] [address] [place] [address], [place] [address] Mar, [facility] [address] [id number] [address] [place] [address] Mar, [facility] [address] [id number] [address] [place] [address] Mar, [facility] [address] [id number] [address] [place] [address], [place] [address] Mar, [facility] [address] [id number] [address] [place] [address], [place] [address] Mar, [facility] [address] [id number] [address] [place] [address], [place] [address] Mar, [facility] [address] [id number] [address] [place] [address], [place] [address] 14 Mar, 2013 [facility] [address] [id number] [address] [place] [address], [place] [address] 14 Mar, 2013 [facility] [address] [id number] [address] [place] [address], [place] [address] 07 Mar, 2013 [facility] [address] [id number] [address] [place] [address], [place] [address] 07 Mar, 2013 [facility] [address] [id number] [address] [place] [address], [place] [address] 06 Mar, 2013 [facility] [address] [id number] [address] [place] [address], [place] [address] 06 Mar, 2013 [facility] [address] [id number] [address] [place] [address], [place] [address] 19 Sep, 2013 [facility] [address] [id number] [address] [place] [address], [place] [address] 19 Sep, 2013 [facility] [address] [id number] [address] [place] [address], [place] [address] 09 Sep, 2013 [facility] [address] [id number] [address] [place] [address], [place] [address] 09 Sep, 2013 [facility] [address] [id number] [address] [place] [address], [place] [address] 05 Sep, 2013 [facility] [address] [id number] [address] [place] [address], [place] [address] 05 Sep, 2013 [facility] [address] [id number] [address] [place] [address], [place] [address] 05 Sep, 2013 [facility] [address] [id number] [address] [place] [address], [place] [address] 05 Sep, 2013 [facility] [address] [id number] [address] [place] [address], [place] [address] 03 Sep, 2013 [facility] [address] [id number] [address] [place] [address], [place] [address] Jan, [facility] [address] [id number] [address] [place] [address], [place] [address] Jan, [facility] [address] [id number] [address] [place] [address], [place] [address] Jan, [facility] [address] [id number] [address] [place] [address], [place] [address] Jan, [facility] [address] [id number] [address] [place] [address], [place] [address] Dec, [facility] [address] [id number] [address] [place] [address], [place] [address] Dec, [facility] [address] [id number] [address] [place] [address], [place] [address] Dec, [facility] [address] [id number] [address] [place] [address], [place] [address] Dec, [facility] [address] [id number] [address] [place] [address], [place] [address] Dec, [facility] [address] [id number] [address] [place] [address], [place] [address] Dec, [facility] [address] [place] [id number] Dec, [facility] [address] [place] [id number] Dec, [facility] [address] [id number] [address] [place] [address], [place] [address] Dec, [facility] [address] [id number] [address] [place] [address], [place] [address] Dec, [facility] [address] [id number] [address] [place] [address], [place] [address] Dec, [facility] [address] [id number] [address] [place] [address], [place] [address] Dec, [facility] [address] [id number] [address] [place] [address], [place] [address] Nov, [facility] [address] [id number] [facility] [place] [address] Nov, [facility] [address] [id number] [facility] [place] [address] Nov, [facility] [address] [id number] [facility] [place] [address] Nov, [facility] [address] [id number] [facility] [place] [address] Nov, [facility] [address] [id number] [facility] [place] [address] Nov, [facility] [address] [id number] [address] [place] [address], [place] [address] Nov, [facility] [address] [id number] [address] [place] [address], [place] [address] Nov, [facility] [address] [id number] [address] [place] [address], [place] [address] Nov, [facility] [address] [id number] [address] [place] [address], [place] [address] Nov, [facility] [address] [id number] [address] [place] [address], [place] [address] Nov, [facility] [address] [id number] [address] [place] [address], [place] [address] Nov, [facility] [address] [id number] [address] [place] [address], [place] [address] Nov, [facility] [address] [id number] [address] [place] [address], [place] [address] Oct, [facility] [address] [id number] [address] [place] [address], [place] [address] Oct, [facility] [address] [id number] [address] [place] [address], [place] [address] Oct, [facility] [address] [id number] [address] [place] [address], [place] [address] Oct, [facility] [address] [id number] [facility] [place] [address] Oct, [facility] [address] [id number] [address] [place] [address], [place] [address] Oct, [facility] [address] [id number] [address] [place] [address], [place] [address] Oct, [facility] [address] [id number] [address] [place] [address], [place] [address] Oct, [facility] [address] [id number] [address] [place] [address], [place] [address] Oct, [facility] [address] [id number] [address] [place] [address], [place] [address] Oct, [facility] [address] [id number] [address] [place] [address], [place] [address] Oct, [facility] [address] [id number] [address] [place] [address], [place] [address] Oct, [facility] [address] [id number] [address] [place] [address], [place] [address] September, [facility] [address] [id number] [address] [place] [address], [place] [address] September, [facility] [address] [id number] [address] [place] [address], [place] [address] September, [facility] [address] [id number] [address] [place] [address], [place] [address] September, [facility] [address] [id number] [address] [place] [address], [place] [address] Aug, [facility] [address] [id number] [address] [place] [address], [place] [address] Aug, [facility] [address] [id number] [address] [place] [address], [place] [address] Aug, [facility] [address] [id number] [address] [place] [address], [place] [address] 22 Aug, 2013 [facility] [address] [id number] [address] [place] [address], [place] [address] 18 Aug, 2013 [facility] [address] [id number] [address] [place] [address], [place] [address] 10 Aug, 2013 [facility] [address] [id number] [address] [place] [address], [place] [address] 10 Aug, 2013 [facility] [address] [id number] [address] [place] [address], [place] [address] 28 Jul, 2013 [facility] [address] [id number] [address] [place] [address], [place] [address] 28 Jul, 2013 [facility] [address] [id number] [address] [place] [address], [place] [address] Jul, [facility] [address] [id number] [address] [place] [address], [place] [address] Jul, [facility] [address] [id number] [address] [place] [address], [place] [address] 19 Jul, 2013 [facility] [address] [id number] [address] [place] [address], [place] [address] 19 Jul, 2013 [facility] [address] [id number] [address] [place] [address], [place] [address] 18 Jul, 2013 [facility] [address] [id number] [address] [place] [address], [place] [address] 18 Jul, 2013 [facility] [address] [id number] [address] [place] [address], [place] [address] 18 Jul, 2013 [facility] [address] [id number] [address] [place] [address], [place] [address] 18 Jul, 2013 [facility] [address] [id number] [address] [place] [address], [place] [address] 18 Jul, 2013 [facility] [address] [id number] [address] [place] [address], [place] [address] Jul, [facility] [address] [id number] [facility] [place] [address] 14 Jul, 2013 [facility] [address] [id number] [address] [place] [address], [place] [address] 14 Jul, 2013 [facility] [address] [id number] [address] [place] [address], [place] [address] Jul, [facility] [address] [id number] [address] [place] [address], [place] [address] Jul, [facility] [address] [id number] [address] [place] [address], [place] [address] Jul, [facility] [address] [id number] [address] [place] [address], [place] [address] Jul, [facility] [address] [id number] [address] [place] [address], [place] [address] Jun, [facility] [address] [id number] [address] [place] [address], [place] [address] 31 Jun, 2013 [facility] [address] [id number] [address] [place] [address], [place] [address] 15 Jun, 2013 [facility] [address] [id number] [address] [place] [address], [place] [address] 15 Jun, 2013 [facility] [address] [id number] [address] [place] [address], [place] [address] 14 Jun, 2013 [facility] [address] [id number] [address] [place] [address], [place] [address] 14 Jun, 2013 [facility] [address] [id number] [address] [place] [address], [place] [address] 14 Jun, 2013 [facility] [address] [id number] [address] [place] [address], [place] [address] 14 Jun, 2013 [facility] [address] [id number] [address] [place] [address], [place] [address] 14 Jun, 2013 [facility] [address] [id number] [address] [place] [address], [place] [address] 14 Jun, 2013 [facility] [address] [id number] [address] [place] [address], [place] [address] 27 May, 2013 [facility] [address] [id number] [address] [place] [address], [place] [address] 27 May, 2013 [facility] [address] [id number] [address] [place] [address], [place] [address] 26 May, 2013 [facility] [address] [id number] [address] [place] [address], [place] [address] 19 May, 2013 [facility] [address] [id number] [address] [place] [address], [place] [address] 19 May, 2013 [facility] [address] [id number] [address] [place] [address], [place] [address] 16 May, 2013 [facility] [address] [id number] [address] [place] [address], [place] [address] 16 May, 2013 [facility] [address] [id number] [address] [place] [address], [place] [address] 16 May, 2013 [facility] [address] [id number] [address] [place] [address], [place] [address] 16 May, 2013 [facility] [address] [id number] [address] [place] [address], [place] [address] 13 May, 2013 [facility] [address] [id number] [address] [place] [address], [place] [address] 13 May, 2013 [facility] [address] [id number] [address] [place] [address], [place] [address] 11 May, 2013 [facility] [address] [id number] [address] [place] [address], [place] [address] 20 Apr, 2013 [facility] [address] [id number] [address] [place] [address], [place] [address] 18 Apr, 2013 [facility] [address] [id number] [address] [place] [address], [place] [address] Apr, [facility] [address] [id number] [address] [place] [address], [place] [address] Apr, [facility] [address] [id number] [address] [place] [address], [place] [address] Apr, [facility] [address] [id number] [address] [place] [address], [place] [address] 08 Apr, 2013 [facility] [address] [id number] [address] [place] [address], [place] [address] Apr, [facility] [address] [id number] [address] [place] [address], [place] [address] Apr, [facility] [address] [id number] [address] [place] [address], [place] [address] Apr, [facility] [address] [id number] [address] [place] [address], [place] [address] Apr, [facility] [address] [id number] [address] [place] [address] Apr, [facility] [address] [id number] [address] [place] [address], [place] [address] Mar, [facility] [address] [id number] [address] [place] [address] Mar, [facility] [address] [id number] [address] [place] [address] Mar, [facility] [address] [id number] [address] [place] [address] Mar, [facility] [address] [id number] [address] [place] [address] Mar, [facility] [address] [id number] [address] [place] [address] Mar, [facility] [address] [id number] [address] [place] [address] Mar, [facility] [address] [id number] [address] [place] [address] 18 Mar, 2013 [facility] [address] [id number] [address] [place] [address], [place] [address] 18 Mar, 2013 [facility] [address] [id number] [address] [place] [address], [place] [address] 15 Mar, 2013 [facility] [address] [id number] [address] [place] [address], [place] [address] 15 Mar, 2013 [facility] [address] [id number] [address] [place] [address], [place] [address] Mar, [facility] [address] [id number] [address] [place] [address], [place] [address] 30 Jan, 2013 [facility] [address] [id number] [address] [place] [address], [place] [address] 25 Jan, 2013 [facility] [address] [id number] [address] [place] [address], [place] [address] Jan, [facility] [address] [id number] [address] [place] [address], [place] [address] Jan, [facility] [address] [id number] [address] [place] [address], [place] [address] Dec, [facility] [address] [id number] [address] [place] [address], [place] [address] Dec, [facility] [address] [id number] [address] [place] [address], [place] [address] Dec, [facility] [address] [id number] [address] [place] [address], [place] [address] Dec, [facility] [address] [id number] [address] [place] [address], [place] [address] Dec, [facility] [address] [id number] [address] [place] [address], [place] [address] Dec, [facility] [address] [id number] [address] [place] [address], [place] [address] Dec, [facility] [address] [id number] [facility] [place] [address] Dec, [facility] [address] [id number] [address] [place] [address], [place] [address] Dec, [facility] [address] [id number] [address] [place] [address], [place] [address] Nov, [facility] [address] [id number] [address] [place] [address], [place] [address] Nov, [facility] [address] [id number] [address] [place] [address], [place] [address] Nov, [facility] [address] [id number] [address] [place] [address], [place] [address] Nov, [facility] [address] [id number] [address] [place] [address], [place] [address] Nov, [facility] [address] [id number] [address] [place] [address], [place] [address] Nov, [facility] [address] [id number] [address] [place] [address], [place] [address] Nov, [facility] [address] [id number] [address] [place] [address], [place] [address] Nov, [facility] [address] [id number] [address] [place] [address], [place] [address] Oct, [facility] [address] [id number] [address] [place] [address], [place] [address] Oct, [facility] [address] [id number] [address] [place] [address], [place] [address] Oct, [facility] [address] [id number] [address] [place] [address], [place] [address] Oct, [facility] [address] [id number] [address] [place] [address], [place] [address] Oct, [facility] [address] [id number] [address] [place] [address], [place] [address] Oct, [facility] [address] [id number] [address] [place] [address], [place] [address] Oct, [facility] [address] [id number] [address] [place] [address], [place] [address] 20 Oct, 2012 [facility] [address] [id number] [address] [place] [address], [place] [address] 19 Oct, 2012 [facility] [address] [id number] [address] [place] [address], [place] [address] 18 Oct, 2012 [facility] [address] [id number] [address] [place] [address], [place] [address] 17 Oct, 2012 [facility] [address] [id number] [address] [place] [address], [place] [address] 14 Oct, 2012 [facility] [address] [id number] [address] [place] [address], [place] [address] 07 Oct, 2012 [facility] [address] [id number] [address] [place] [address], [place] [address] 30 Sep, 2012 [facility] [address] [id number] [address] [place] [address], [place] [address] September, [facility] [address] [id number] [address] [place] [address], [place] [address] 15 Sep, 2012 [facility] [address] [id number] [address] [place] [address], [place] [address] 25 Aug, 2012 [facility] [address] [id number] [address] [place] [address], [place] [address] 24 Aug, 2012 [facility] [address] [id number] [address] [place] [address], [place] [address] 18 Aug, 2012 [facility] [address] [id number] [address] [place] [address], [place] [address] 18 Aug, 2012 [facility] [address] [id number] [address] [place] [address], [place] [address] 18 Aug, 2012 [facility] [address] [id number] [address] [place] [address], [place] [address] 08 Aug, 2012 [facility] [address] [id number] [address] [place] [address], [place] [address] Aug, [facility] [address] [id number] [address] [place] [address], [place] [address] Jul, [facility] [address] [id number] [address] [place] [address], [place] [address] Jul, [facility] [address] [id number] [address] [place] [address], [place] [address] Jul, [facility] [address] [id number] [address] [place] [address], [place] [address] Jul, [facility] [address] [id number] [address] [place] [address], [place] [address] Jul, [facility] [address] [id number] [address] [place] [address], [place] [address] Jul, [facility] [address] [id number] [address] [place] [address], [place] [address] Jul, [facility] [address] [id number] [address] [place] [address], [place] [address] Jul, [facility] [address] [id number] [address] [place] [address], [place] [address] Jul, [facility] [address] [id number] [address] [place] [address], [place] [address] Jul, [facility] [address] [id number] [address] [place] [address], [place] [address] Jul, [facility] [address] [id number] [address] [place] [address], [place] [address] Jul, [facility] [address] [id number] [address] [place] [address], [place] [address] Jul, [facility] [address] [id number] [address] [place] [address], [place] [address] 24 Jun, 2012 [facility] [address] [id number] [address] [place] [address], [place] [address] Jun, [facility] [address] [id number] [address] [place] [address], [place] [address] 19 Jun, 2012 [facility] [address] [id number] [address] [place] [address], [place] [address] 17 Jun, 2012 [facility] [address] [id number] [address] [place] [address], [place] [address] 15 Jun, 2012 [facility] [address] [id number] [address] [place] [address], [place] [address] 14 Jun, 2012 [facility] [address] [id number] [address] [place] [address], [place] [address] 08 Jun, 2012 [facility] [address] [id number] [address] [place] [address], [place] [address] May, [facility] [address] [id number] [address] [place] [address], [place] [address] May, [facility] [address] [id number] [address] [place] [address], [place] [address] May, [facility] [address] [id number] [address] [place] [address], [place] [address] May, [facility] [address] [id number] [address] [place] [address], [place] [address] May, [facility] [address] [id number] [address] [place] [address], [place] [address] May, [facility] [address] [id number] [address] [place] [address], [place] [address] May, [facility] [address] [id number] [address] [place] [address], [place] [address] May, [facility] [address] [id number] [address] [place] [address], [place] [address] May, [facility] [address] [id number] [address] [place] [address], [place] [address] May, [facility] [address] [id number] [address] [place] [address], [place] [address] Apr, [facility] [address] [id number] [address] [place] [address], [place] [address] Apr, [facility] [address] [id number] [address] [place] [address], [place] [address] Apr, [facility] [address] [id number] [address] [place] [address], [place] [address] Apr, [facility] [address] [id number] [address] [place] [address], [place] [address] Apr, [facility] [address] [id number] [address] [place] [address], [place] [address] Apr, [facility] [address] [id number] [address] [place] [address], [place] [address] Apr, [facility] [address] [id number] [address] [place] [address], [place] [address] Apr, [facility] [address] [id number] [address] [place] [address], [place] [address] Apr, [facility] [address] [id number] [address] [place] [address], [place] [address] Apr, [facility] [address] [id number] [address] [place] [address], [place] [address] Apr, [facility] [address] [id number] [address] [place] [address], [place] [address] Apr, [facility] [address] [id number] [address] [place] [address], [place] [address] Mar, [facility] [address] [id number] [address] [place] [address], [place] [address] Mar, [facility] [address] [id number] [address] [place] [address], [place] [address] Mar, [facility] [address] [id number] [address] [place] [address], [place] [address] Mar, 2011 [facility] [address] [id number] [address] [place] [address], [place] [address] Mar, 2011 [facility] [address] [id number] [address] [place] [address], [place] [address] Mar, 2011 [facility] [address] [id number] [address] [place] [address], [place] [address] Mar, [facility] [address] [id number] [address] [place] [address], [place] [address] Mar, [facility] [address] [id number] [address] [place] [address], [place] [address] Mar, [facility] [address] [id number] [address] [place] [address], [place] [address] Mar, [facility] [address] [id number] [address] [place] [address], [place] [address] Mar, [facility] [address] [id number] [address] [place] [address], [place] [address] Mar, [facility] [address] [id number] [address] [place] [address] Mar, [facility] [address] [id number] [address] [place] [address] Mar, [facility] [address] [id number] [address] [place] [address] Mar, [facility] [address] [id number] [address] [place] [address], [place] [address] Mar, [facility] [address] [id number] [address] [place] [address], [place] [address] Jan, [facility] [address] [id number] [address] [place] [id number] 24 Jan, 2012 [facility] [address] [id number] [address] [place] [address] 22 Jan, 2012 [facility] [address] [id number] [address] [place] [address], [place] [address] 22 Jan, 2012 [facility] [address] [id number] [address] [place] [address], [place] [address] 21 Jan, 2012 [facility] [address] [id number] [address] [place] [address], [place] [address] 18 Jan, 2012 [facility] [address] [id number] [address] [place] [address], [place] [address] 14 Jan, 2012 [facility] [address] [id number] [address] [place] [address], [place] [address] 07 Jan, 2012 [facility] [address] [id number] [address] [place] [address], [place] [address] 15 Dec, 2011 [facility] [address] [id number] [address] [place] [address], [place] [address] Dec, [facility] [address] [id number] [address] [place] [address], [place] [address] Dec, [facility] [address] [id number] [address] [place] [address], [place] [address] Dec, [facility] [address] [id number] [address] [place] [address], [place] [address] Dec, [facility] [address] [id number] [address] [place] [address], [place] [address] Dec, [facility] [address] [id number] [address] [place] [address], [place] [address] Dec, [facility] [address] [id number] [address] [place] [address], [place] [address] Nov, [facility] [address] [id number] [address] [place] [address], [place] [address] Oct, [facility] [address] [id number] [address] [place] [address], [place] [address] Aug, [facility] [address] [id number] [address] [place] [address], [place] [address] 22 Jul, 2011 [facility] [address] [id number] [address] [place] [address], [place] [address] 19 Jul, 2011 [facility] [address] [id number] [address] [place] [address], [place] [address] 16 Jul, 2011 [facility] [address] [id number] [address] [place] [address], [place] [address] 14 Jul, 2011 [facility] [address] [id number] [address] [place] [address], [place] [address] 07 Jul, 2011 [facility] [address] [id number] [address] [place] [address], [place] [address] 02 Jul, 2011 [facility] [address] [id number] [address] [place] [address], [place] [address] 21 Jul, 2011 [facility] [address] [id number] [address] [place] [address], [place] [address] 15 Jul, 2011 [facility] [address] [id number] [address] [place] [address], [place] [address] 13 Jul, 2011 [facility] [address] [id number] [address] [place] [address], [place] [address] 03 Jul, 2011 [facility] [address] [id number] [address] [place] [address], [place] [address] 02 Jul, 2011 [facility] [address] [id number] [address] [place] [address], [place] [address] 24 Jun, 2011 [facility] [address] [id number] [address] [place] [address], [place] [address] 24 Jun, 2011 [facility] [address] [id number] [address] [place] [address], [place] [address] 13 Jun, 2011 [facility] [address] [id number] [address] [place] [address], [place] [address] 11 Jun, 2011 [facility] [address] [id number] [address] [place] [address], [place] [address] Jun, [facility] [address] [id number] [address] [place] [address], [place] [address] Jun, [facility] [address] [id number] [address] [place] [address], [place] [address] Jun, [facility] [address] [id number] [address] [place] [address], [place] [address] May, [facility] [address] [id number] [address] [place] [address], [place] [address] May, [facility] [address] [id number] [address] [place] [address], [place] [address] May, [facility] [address] [id number] [address] [place] [address], [place] [address] May, [facility] [address] [id number] [address] [place] [address], [place] [address] May, [facility] [address] [id number] [address] [place] [address], [place] [address] May, [facility] [address] [id number] [address] [place] [address], [place] [address] May, [facility] [address] [id number] [address] [place] [address], [place] [address] May, [facility] [address] [id number] [address] [place] [address], [place] [address] May, [facility] [address] [id number] [address] [place] [address], [place] [address] May, [facility] [address] [id number] [address] [place] [address], [place] [address] Apr, [facility] [address] [id number] [address] [place] [address], [place] [address] Apr, [facility] [address] [id number] [address] [place] [address], [place] [address] Apr, [facility] [address] [id number] [address] [place] [address] Apr, [facility] [address] [facility] [id number] [address] [place] [address] Mar, [facility] [address] [facility] [id number] [address] [place] [address] Mar, [facility] [address] [facility] [id number] [address] [place] [address] Mar, [facility] [address] [facility] [id number] [address] [place] [address] Mar, IMMUNIZATIONS No Known Immunizations SOCIAL HISTORY [...]
--- OUTSIDE RECORDS SUMMARY | 2020-01-03 17:57 | XMS REPORT ---
Author Author Pattie Moffett Doctor Organization [facility] Address Unknown Phone Unavailable Care Team Providers Care Drug Abuse Technician Name Role Phone Migration, Doctor Unavailable Unavailable PROBLEMS Type Condition ICD9-CM Code ANJ11-HD Code Onset Dates Condition S tatus SNOMED Code Problem FRANCIS (generalized anxiety disorder) F41.1 Active 20405592 Problem Thoracic disc herniation M51.24 Activ e 207415301 Problem Major depressive disorder in partial remission F32 .4 Active 11675983 Problem Seizure disorder G40.909 Active 128 056406 Problem Conversion disorder (or hysterical neurosis, conversion ty pe) F44.9 Active 12416535 Problem Constipation, unspecified constipation type K59.00 Active 44059077 Problem Mild episode of recurrent major depressive disorder F33.0 Active 749644783 Problem Restless leg syndrome G25.81 Active 59023656 Problem Nonadherence to medication Z91.14 Act vivian 586018802 Problem Slow transit constipation K59.01 Acti ve 10303862 Problem Atrophic vaginitis N95.2 Active 5 5481710 Problem Paroxysmal tachycardia I47.9 Active 55158297 Problem Other chronic pain G89.29 Active 8 1764344 Problem Mild intermittent asthma without complication J45. 20 Active 027945454 Problem Obesity (BMI 30.0-34.9) E66.9 Active [id number] Problem High blood pressure I10 Active 04948086 ALLERGIES No Information ENCOUNTERS Encounter Location Date Diagnosis [place] [id number] [facility] [address] [address] [id number] [id number] 26 Oct, 2019 Breast cancer screening Z12.[address] [id number] [address] 08 Oct, 2019 Breast cancer screening Z12. 39 [facility] [address] [facility] [id number] [address] [place] [id number] 05 Oct, 2019 [facility] [address] [facility] [id number] [address] [place] [phone] Oct, [facility] [address] [id number] [address] [place] [phone] September, [facility] [address] [id number] [address] [place] [id number] September, [facility] [address] [id number] [address] [place] [phone] September, Well woman exam with routine gynecological exam Z01.419 and Atrophic vaginitis N95.2 [facility] [address] [id number] [address] [place] [id number] September, Major depressive disorder in partial remission F32.4 ; FRANCIS (generalized anxiety disorder) F41.1 ; Restless leg syndrome G25.81 and Nonadherence to medication Z91.14 [facility] [address] [id number] [address] [place] [phone] September, [facility] [address] [id number] [address] [place] [phone] Aug, [facility] [address] [id number] [address] [place] [id number] Aug, Dental examination Z01.20 [facility] [address] [id number] [address] [place] [id number] 15 Aug, 2019 Dental examination Z01.20 an d Caries K02.9 [facility] [address] [id number] [address] [place] [phone] Aug, [facility] [address] [id number] [address] [place] [phone] Aug, [facility] [address] [id number] [address] [place] [phone] Aug, Other chronic pain G89.29 an d Back muscle spasm M62.830 [facility] [address] [id number] [address] [place] [phone] Aug, [facility] [address] [id number] [address] [place] [phone] Aug, Major depressive disorder in partial remission F32.4 ; FRANCIS (generalized anxiety disorder) F41.1 ; Restless leg syndrome G25.81 and Nonadherence to medication Z91.14 [facility] [address] [id number] [address] [place] [phone] Aug, [facility] [address] [id number] [address] [place] [phone] Jul, [facility] [address] [id number] [address] [place] [phone] Jul, [facility] [address] [id number] [address] [place] [phone] Jul, Major depressive disorder in partial remission F32.4 ; FRANCIS (generalized anxiety disorder) F41.1 ; Restless leg syndrome G25.81 and High blood pressure I10 [facility] [address] [id number] [address] [place] [phone] Jul, [facility] [address] [id number] [address] [place] [phone] Jul, [facility] [address] [id number] [address] [place] [id number] Jun, [facility] [address] [id number] [address] [place] [phone] May, [facility] [address] [id number] [address] [place] [phone] Apr, [facility] [address] [id number] [address] [place] [phone] Apr, [facility] [address] [id number] [address] [place] [phone] Mar, [facility] [address] [id number] [address] [place] [phone] Mar, Major depressive disorder in partial remission F32.4 ; FRANCIS (generalized anxiety disorder) F41.1 and Restless leg syndrome G25.81 [facility] [address] [id number] [address] [place] [phone] Mar, Obesity (BMI 30.0-34.9) E66. 9 [facility] [address] [id number] [address] [place] [phone] Jan, [facility] [address] [id number] [address] [place] [id number] 14 Jan, 2019 Burn T30.0 [facility] [address] [id number] [address] [place] [phone] Dec, [facility] [address] [id number] [address] [place] [phone] Nov, [facility] [address] [id number] [address] [place] [phone] Nov, [facility] [id number] [place] [id number] Nov, Dental examination Z01.20 [facility] [address] [id number] [address] [place] [phone] September, [facility] [address] [place] [id number] [place] [address] [id number] September, Decay, teeth K02.9 and Denta l examination Z01.20 [facility] [address] [id number] [place] [id number] September, Dental examination Z01.20 [facility] [address] [facility] [id number] [address] [place] [phone] September, FRANCIS (generalized anxiety dis order) F41.1 ; Major depressive disorder in partial remission F32.4 and Restless leg syndrome G25.81 [facility] [address] [id number] [address] [place] [phone] Aug, [facility] [address] [id number] [address] [place] [id number] Jul, [place] [id number] [id number] Jul, Encounter to discuss test re sults Z71.2 [place] [address] [phone] Jul, Pelvic pain R10.2 ; Screenin g for breast cancer Z12.31 and Obesity (BMI 30.0-34.9) E66.9 [place] [address] [address] Jul, Mild intermittent asthma wit hout complication J45.20 [place] [address] [address] Jul, Major depressive disorder in partial remission F32.4 and FRANCIS (generalized anxiety disorder) F41.1 [place] [address] [phone] Jul, [place] [address] [phone] Jun, [place] [address] [phone] May, Major depressive disorder in partial remission F32.4 ; FRANCIS (generalized anxiety disorder) F41.1 and Restless leg syndrome G25.81 [place] [address] [phone] Apr, [place] [address] [address] Mar, [facility] [address] [phone] Jan, Pain in thoracic spine M54.6 and Other chronic pain G89.29 [place] [address] [phone] 14 Jan, 2018 [place] [address] [id number] Jan, Mild episode of recurrent ma saray depressive disorder F33.0 ; FRANCIS (generalized anxiety disorder) F41.1 and Restless leg syndrome G25.81 [facility] [address] [id number] [address] [place] [phone] Dec, [facility] [address] [id number] [address] [place] [phone] Dec, Hospital discharge follow-up Z09 [facility] [address] [id number] [address] [place] [phone] Nov, [facility] [address] [id number] [address] [place] [phone] Nov, [facility] [address] [id number] [address] [place] [phone] September, [facility] [address] [id number] [address] [place] [phone] September, [facility] [address] [id number] [address] [place] [phone] September, Major depressive disorder in partial remission F32.4 ; FRANCIS (generalized anxiety disorder) F41.1 and Restless leg syndrome G25.81 [facility] [address] [id number] [address] [place] [phone] September, [facility] [address] [id number] [address] [place] [phone] Jul, [facility] [address] [id number] [address] [place] [id number] Jul, Dorsalgia, unspecified M54.9 [facility] [address] [facility] [id number] [address] [place] [phone] Jul, Mild episode of recurrent ma saray depressive disorder F33.0 and FRANCIS (generalized anxiety disorder) F41.1 [facility] [address] [id number] [address] [place] [phone] May, [facility] [address] [id number] [address] [place] [phone] May, Dysuria R30.0 and Acute cyst itis with hematuria N30.01 [facility] [address] [id number] [address] [place] [phone] Apr, [facility] [address] [id number] [address] [place] [id number] Apr, Major depressive disorder in partial remission F32.4 and FRANCIS (generalized anxiety disorder) F41.1 [facility] [address] [id number] [address] [place] [phone] Mar, Paroxysmal tachycardia I47.9 [facility] [address] [id number] [address] [place] [id number] Mar, Paroxysmal tachycardia I47.9 and Pain of left lower extremity M79.605 [facility] [address] [id number] [address] [place] [phone] Mar, FRANCIS (generalized anxiety dis order) F41.1 and Major depressive disorder in partial remission F32.4 [facility] [address] [facility] [id number] [address] [place] [phone] Jan, [facility] [address] [id number] [address] [place] [phone] Jan, [facility] [address] [facility] [id number] [address] [place] [phone] Jan, [facility] [address] [id number] [address] [place] [phone] Dec, Constipation, unspecified co nstipation type K59.00 [facility] [address] [id number] [address] [place] [phone] Dec, [facility] [address] [facility] [id number] [address] [place] [id number] Nov, [facility] [address] [facility] [id number] [address] [place] [id number] Nov, Major depressive disorder in partial remission F32.4 and FRANCIS (generalized anxiety disorder) F41.1 [facility] [address] [facility] [id number] [address] [place] [phone] Oct, Abdominal pain R10.9 and Slo w transit constipation K59.01 [facility] [address] [facility] [id number] [address] [place] [phone] Aug, Major depressive disorder in partial remission F32.4 ; FRANCIS (generalized anxiety disorder) F41.1 ; Conversion disorder (or hysterical neurosis, conversion type) F44.9 ; Dorsalgia, unspecified M54.9 and Long-term use of high-risk medication Z79.899 [facility] [address] [facility] [id number] [address] [place] [phone] Aug, [place] [address] [place] [id number] [place] [phone] Jul, Paroxysmal tachycardia I47.9 [facility] [address] [facility] [id number] [address] [place] [phone] Jul, Paroxysmal tachycardia I47.9 [place] [address] [facility] [id number] [address] [place] [phone] Jun, [facility] [address] [facility] [id number] [address] [place] [id number] Jun, Major depressive disorder in partial remission F32.4 ; FRANCIS (generalized anxiety disorder) F41.1 and Conversion disorder (or hysterical neurosis, conversion type) F44.9 [facility] [address] [facility] [id number] [address] [place] [id number] May, Pelvic pain R10.2 [facility] [address] [facility] [id number] [address] [place] [id number] Apr, Gastroenteritis K52.9 [facility] [address] [facility] [id number] [address] [place] [id number] Apr, Blood in urine R31.9 and Acu te cystitis with hematuria N30.01 [facility] [address] [id number] [address] [place] [phone] Apr, Major depressive disorder in partial remission F32.4 ; FRANCIS (generalized anxiety disorder) F41.1 and Conversion disorder (or hysterical neurosis, conversion type) F44.9 [facility] [address] [id number] [address] [place] [phone] Apr, [facility] [address] [id number] [address] [place] [phone] Apr, Abnormal mammogram R92.8 [facility] [address] [id number] [address] [place] [phone] Mar, [facility] [address] [id number] [address] [place] [id number] Mar, Gastroenteritis K52.9 and Se izure disorder G40.909 [facility] [address] [id number] [address] [place] [id number] Dec, [facility] [address] [id number] [address] [place] [phone] Dec, Other headache syndrome G44. 89 [facility] [address] [id number] [address] [place] [phone] Dec, [facility] [address] [id number] [address] [place] [id number] Dec, Thoracic disc herniation M51 .24 [facility] [address] [id number] [address] [place] [phone] Dec, [facility] [address] [facility] [id number] [address] [place] [phone] Nov, Major depressive disorder in partial remission F32.4 and FRANCIS (generalized anxiety disorder) F41.1 [facility] [address] [facility] [id number] [address] [place] [phone] Nov, [place] [address] [id number] [address] [place] [phone] Nov, Dorsalgia, unspecified M54.9 [facility] [address] [id number] [address] [place] [address], [place] [address] Oct, [facility] [address] [id number] [address] [place] [phone] September, [facility] [address] [id number] [address] [place] [phone] Aug, [facility] [address] [id number] [address] [place] [phone] Aug, Major depressive disorder in partial remission F32.4 and FRANCIS (generalized anxiety disorder) F41.1 [facility] [address] [id number] [address] [place] [phone] Aug, [facility] [address] [id number] [address] [place] [id number] Jul, Abnormal mammogram R92.8 [facility] [address] [id number] [address] [place] [phone] Jul, [facility] [address] [id number] [address] [place] [phone] Jul, [facility] [address] [id number] [address] [place] [phone] Jul, [facility] [address] [id number] [address] [place] [phone] Jul, [facility] [address] [id number] [address] [place] [id number] Jul, [facility] [address] [id number] [address] [place] [id number] Jul, [facility] [address] [id number] [address] [place] [phone] Jun, Major depressive disorder in partial remission F32.4 and FRANCIS (generalized anxiety disorder) F41.1 [facility] [address] [id number] [address] [place] [phone] Jun, [facility] [address] [id number] [address] [place] [phone] May, [facility] [address] [id number] [address] [place] [phone] Apr, [facility] [address] [id number] [address] [place] [phone] Mar, Major depressive disorder, r ecurrent episode, moderate F33.1 ; PTSD (post-traumatic stress disorder) F43.10 and FRANCIS (generalized anxiety disorder) F41.1 [facility] [address] [id number] [address] [place] [id number] Mar, [facility] [address] [id number] [address] [place] [phone] Mar, [facility] [address] [id number] [address] [place] [id number] Mar, [facility] [address] [id number] [address] [place] [phone] Mar, [facility] [address] [id number] [address] [place] [phone] Jan, [facility] [address] [id number] [address] [place] [phone] 15 Jan, 2015 [facility] [address] [id number] [address] [place] [id number] 15 Jan, 2015 [facility] [address] [id number] [address] [place] [phone] 14 Jan, 2015 Thoracic disc herniation 722 .11 [facility] [address] [id number] [address] [place] [phone] Dec, [facility] [address] [id number] [address] [place] [id number] Dec, [facility] [address] [id number] [address] [place] [phone] Dec, [facility] [address] [id number] [address] [place] [id number] Nov, [facility] [address] [id number] [address] [place] [phone] Nov, Generalized anxiety disorder 300.02 ; Posttraumatic stress disorder 309.81 and Major depressive disorder, recurrent episode, moderate 296.32 [facility] [address] [id number] [address] [place] [address], [place] [address] Nov, [facility] [address] [id number] [address] [place] [id number] Nov, [facility] [address] [id number] [address] [place] [phone] Oct, [facility] [address] [id number] [address] [place] [phone] Oct, [facility] [address] [id number] [address] [place] [phone] Oct, [facility] [address] [id number] [address] [place] [address], [place] [phone] September, [facility] [address] [id number] [address] [place] [phone] September, [facility] [address] [id number] [address] [place] [phone] Aug, [facility] [address] [id number] [address] [place] [phone] Aug, [facility] [address] [id number] [address] [place] [id number] Jul, [facility] [address] [id number] [address] [place] [id number] Jul, [facility] [address] [id number] [address] [place] [id number] Jul, [facility] [address] [id number] [address] [place] [address], [place] [id number] 17 Jul, 2014 [facility] [address] [id number] [address] [place] [address], [place] [id number] 16 Jul, 2014 [facility] [address] [id number] [address] [place] [address], [place] [id number] 16 Jul, 2014 [facility] [address] [id number] [address] [place] [address], [place] [id number] Jul, [facility] [address] [id number] [address] [place] [address], [place] [id number] Jul, [facility] [address] [id number] [address] [place] [address], [place] [id number] Jul, [facility] [address] [id number] [address] [place] [address], [place] [id number] Jul, [facility] [address] [id number] [address] [place] [address], [place] [id number] Jun, [facility] [address] [id number] [address] [place] [address], [place] [id number] Jun, [facility] [address] [id number] [address] [place] [address], [place] [id number] 05 Jun, 2014 [facility] [address] [id number] [address] [place] [address], [place] [id number] May, [facility] [address] [id number] [address] [place] [address], [place] [id number] Apr, [facility] [address] [id number] [address] [place] [address], [place] [address] Apr, [facility] [address] [id number] [address] [place] [address], [place] [address] Apr, [facility] [address] [id number] [address] [place] [address], [place] [address] Apr, [facility] [address] [id number] [address] [place] [address], [place] [address] 07 Apr, 2014 [facility] [address] [id number] [address] [place] [address], [place] [address] 07 Apr, 2014 [facility] [address] [id number] [address] [place] [address], [place] [address] Apr, [facility] [address] [id number] [address] [place] [address], [place] [address] Apr, [facility] [address] [id number] [address] [place] [address], [place] [address] Mar, [facility] [address] [id number] [address] [place] [address], [place] [address] 24 Mar, 2014 [facility] [address] [id number] [address] [place] [address], [place] [address] Mar, [facility] [address] [id number] [address] [place] [address], [place] [address] Mar, [facility] [address] [id number] [address] [place] [address], [place] [address] Mar, [facility] [address] [id number] [address] [place] [address], [place] [address] Mar, [facility] [address] [id number] [address] [place] [address], [place] [address] Mar, [facility] [address] [id number] [address] [place] [address], [place] [address] Mar, [facility] [address] [id number] [address] [place] [address], [place] [address] 23 Mar, 2014 [facility] [address] [id number] [address] [place] [address], [place] [address] Mar, [facility] [address] [id number] [address] [place] [address], [place] [address] 17 Mar, 2014 [facility] [address] [id number] [address] [place] [address], [place] [address] 14 Mar, 2014 [facility] [address] [id number] [address] [place] [address], [place] [address] 14 Mar, 2013 [facility] [address] [id number] [address] [place] [address], [place] [address] 07 Mar, 2013 [facility] [address] [id number] [address] [place] [address], [place] [address] 07 Mar, 2013 [facility] [address] [id number] [address] [place] [address], [place] [address] 06 Mar, 2013 [facility] [address] [id number] [address] [place] [address], [place] [address] 06 Mar, 2013 [facility] [address] [id number] [address] [place] [address], [place] [address] 19 Sep, 2013 [facility] [address] [id number] [address] [place] [address], [place] [address] 19 Sep, 2013 [facility] [address] [id number] [address] [place] [address], [place] [address] 09 Sep, 2013 [facility] [address] [id number] [address] [place] [address], [place] [address] 09 Sep, 2013 [facility] [address] [id number] [address] [place] [address], [place] [address] 05 Sep, 2013 [facility] [address] [id number] [address] [place] [address], [place] [address] 05 Sep, 2013 [facility] [address] [id number] [address] [place] [address], [place] [address] 05 Sep, 2013 [facility] [address] [id number] [address] [place] [address], [place] [address] 05 Sep, 2013 [facility] [address] [id number] [address] [place] [address], [place] [address] 03 Sep, 2013 [facility] [address] [id number] [address] [place] [address], [place] [address] 02 Sep, 2013 [facility] [address] [id number] [address] [place] [address], [place] [address] Jan, [facility] [address] [id number] [address] [place] [address], [place] [address] Jan, [facility] [address] [id number] [address] [place] [address], [place] [address] Jan, [facility] [address] [id number] [address] [place] [address], [place] [address] Dec, [facility] [address] [id number] [address] [place] [address], [place] [address] Dec, [facility] [address] [id number] [address] [place] [address], [place] [address] Dec, [facility] [address] [id number] [address] [place] [address], [place] [address] Dec, [facility] [address] [id number] [address] [place] [address], [place] [address] Dec, [facility] [address] [id number] [address] [place] [address], [place] [address] Dec, [facility] [address] [place] [id number] Dec, [facility] [address] [place] [id number] Dec, [facility] [address] [id number] [address] [place] [id number] Dec, [facility] [address] [id number] [address] [place] [address], [place] [address] Dec, [facility] [address] [id number] [address] [place] [address], [place] [address] Dec, [facility] [address] [id number] [address] [place] [address], [place] [address] Dec, [facility] [address] [id number] [address] [place] [address], [place] [address] Nov, [facility] [address] [id number] [address] [place] [address], [place] [address] Nov, [facility] [address] [id number] [facility] [place] [address] Nov, [facility] [address] [id number] [facility] [place] [place] [address] Nov, [facility] [address] [id number] [facility] [place] [address] Nov, [facility] [address] [id number] [facility] [place] [address] Nov, [facility] [address] [id number] [facility] [place] [place] [address] Nov, [facility] [address] [id number] [address] [place] [address], [place] [address] Nov, [facility] [address] [id number] [address] [place] [address], [place] [address] Nov, [facility] [address] [id number] [address] [place] [address], [place] [address] Nov, [facility] [address] [id number] [address] [place] [address], [place] [address] Nov, [facility] [address] [id number] [address] [place] [address], [place] [address] Nov, [facility] [address] [id number] [address] [place] [address], [place] [address] Nov, [facility] [address] [id number] [address] [place] [address], [place] [address] Oct, [facility] [address] [id number] [address] [place] [address], [place] [address] Oct, [facility] [address] [id number] [address] [place] [address], [place] [address] Oct, [facility] [address] [id number] [address] [place] [address], [place] [address] Oct, [facility] [address] [id number] [facility] [place] [place] [address] Oct, [facility] [address] [id number] [address] [place] [address], [place] [address] Oct, [facility] [address] [id number] [address] [place] [address], [place] [address] Oct, [facility] [address] [id number] [address] [place] [address], [place] [address] Oct, [facility] [address] [id number] [address] [place] [address], [place] [address] Oct, [facility] [address] [id number] [address] [place] [address], [place] [address] Oct, [facility] [address] [id number] [address] [place] [address], [place] [address] Oct, [facility] [address] [id number] [address] [place] [address], [place] [address] Oct, [facility] [address] [id number] [address] [place] [address], [place] [address] September, [facility] [address] [id number] [address] [place] [address], [place] [address] September, [facility] [address] [id number] [address] [place] [address], [place] [address] September, [facility] [address] [id number] [address] [place] [address], [place] [address] September, [facility] [address] [id number] [address] [place] [address], [place] [address] Aug, [facility] [address] [id number] [address] [place] [address], [place] [address] Aug, [facility] [address] [id number] [address] [place] [address], [place] [address] Aug, [facility] [address] [id number] [address] [place] [address], [place] [address] Aug, [facility] [address] [id number] [address] [place] [address], [place] [address] Aug, [facility] [address] [id number] [address] [place] [address], [place] [address] Aug, [facility] [address] [id number] [address] [place] [address], [place] [address] Aug, [facility] [address] [id number] [address] [place] [address], [place] [address] Jul, [facility] [address] [id number] [address] [place] [address], [place] [address] Jul, [facility] [address] [id number] [address] [place] [address], [place] [address] Jul, [facility] [address] [id number] [address] [place] [address], [place] [address] Jul, [facility] [address] [id number] [address] [place] [address], [place] [address] Jul, [facility] [address] [id number] [address] [place] [address], [place] [address] Jul, [facility] [address] [id number] [address] [place] [address], [place] [address] Jul, [facility] [address] [id number] [address] [place] [address], [place] [address] Jul, [facility] [address] [id number] [address] [place] [address], [place] [address] Jul, [facility] [address] [id number] [address] [place] [address], [place] [address] Jul, [facility] [address] [id number] [address] [place] [address], [place] [address] Jul, [facility] [address] [id number] [address] [place] [address], [place] [address] Jul, [facility] [address] [id number] [address] [place] [address], [place] [address] 14 Jul, 2013 [facility] [address] [id number] [address] [place] [address], [place] [address] 14 Jul, 2013 [facility] [address] [id number] [address] [place] [address], [place] [address] 11 Jul, 2013 [facility] [address] [id number] [address] [place] [address], [place] [address] 11 Jul, 2013 [facility] [address] [id number] [address] [place] [address], [place] [address] 11 Jul, 2013 [facility] [address] [id number] [address] [place] [address], [place] [address] Jul, [facility] [address] [id number] [address] [place] [address], [place] [address] Jun, [facility] [address] [id number] [address] [place] [address], [place] [address] 31 Jun, 2013 [facility] [address] [id number] [address] [place] [address], [place] [address] 15 Jun, 2013 [facility] [address] [id number] [address] [place] [address], [place] [address] 15 Jun, 2013 [facility] [address] [id number] [address] [place] [address], [place] [address] 14 Jun, 2013 [facility] [address] [id number] [address] [place] [address], [place] [address] 14 Jun, 2013 [facility] [address] [id number] [address] [place] [address], [place] [address] 14 Jun, 2013 [facility] [address] [id number] [address] [place] [address], [place] [address] 14 Jun, 2013 [facility] [address] [id number] [address] [place] [address], [place] [address] 14 Jun, 2013 [facility] [address] [id number] [address] [place] [address], [place] [address] 14 Jun, 2013 [facility] [address] [id number] [address] [place] [address], [place] [address] 27 May, 2013 [facility] [address] [id number] [address] [place] [address], [place] [address] 27 May, 2013 [facility] [address] [id number] [address] [place] [address], [place] [address] 26 May, 2013 [facility] [address] [id number] [address] [place] [address], [place] [address] 19 May, 2013 [facility] [address] [id number] [address] [place] [address], [place] [address] 19 May, 2013 [facility] [address] [id number] [address] [place] [address], [place] [address] 16 May, 2013 [facility] [address] [id number] [address] [place] [address], [place] [address] 16 May, 2013 [facility] [address] [id number] [address] [place] [address], [place] [address] 16 May, 2013 [facility] [address] [id number] [address] [place] [address], [place] [address] 16 May, 2013 [facility] [address] [id number] [address] [place] [address], [place] [address] 13 May, 2013 [facility] [address] [id number] [address] [place] [address], [place] [address] 13 May, 2013 [facility] [address] [id number] [address] [place] [address], [place] [address] 11 May, 2013 [facility] [address] [id number] [address] [place] [address], [place] [address] 20 Apr, 2013 [facility] [address] [id number] [address] [place] [address], [place] [address] 18 Apr, 2013 [facility] [address] [id number] [address] [place] [address], [place] [address] 18 Apr, 2013 [facility] [address] [id number] [address] [place] [address] Apr, [facility] [address] [id number] [address] [place] [address], [place] [address] Apr, [facility] [address] [id number] [address] [place] [address] 08 Apr, 2013 [facility] [address] [id number] [address] [place] [address] 08 Apr, 2013 [facility] [address] [id number] [address] [place] [address] Apr, [facility] [address] [id number] [address] [place] [address], [place] [address] Apr, [facility] [address] [id number] [address] [place] [address] Apr, [facility] [address] [id number] [address] [place] [address] Apr, [facility] [address] [id number] [address] [place] [address] Mar, [facility] [address] [id number] [address] [place] [id number] Mar, [facility] [address] [id number] [address] [place] [id number] Mar, [facility] [address] [id number] [address] [place] [address] Mar, [facility] [address] [id number] [address] [place] [id number] Mar, [facility] [address] [id number] [address] [place] [id number] Mar, [facility] [address] [id number] [address] [place] [address] Mar, [facility] [address] [id number] [address] [place] [id number] 18 Mar, 2013 [facility] [address] [id number] [address] [place] [address], [place] [address] 18 Mar, 2013 [facility] [address] [id number] [address] [place] [address], [place] [address] 15 Mar, 2013 [facility] [address] [id number] [address] [place] [address], [place] [address] 15 Mar, 2013 [facility] [address] [id number] [address] [place] [address], [place] [address] Mar, [facility] [address] [id number] [address] [place] [address], [place] [address] 30 Jan, 2013 [facility] [address] [id number] [address] [place] [address], [place] [address] 25 Jan, 2013 [facility] [address] [id number] [address] [place] [address], [place] [address] 20 Jan, 2013 [facility] [address] [id number] [address] [place] [address], [place] [address] Jan, [facility] [address] [id number] [address] [place] [address], [place] [address] Dec, [facility] [address] [id number] [address] [place] [address], [place] [address] Dec, [facility] [address] [id number] [address] [place] [address], [place] [address] Dec, [facility] [address] [id number] [address] [place] [address], [place] [address] Dec, [facility] [address] [id number] [address] [place] [address], [place] [address] Dec, [facility] [address] [id number] [address] [place] [address], [place] [address] Dec, [facility] [address] [id number] [address] [place] [address], [place] [address] Dec, [facility] [address] [id number] [address] [place] [address], [place] [address] Dec, [facility] [address] [id number] [address] [place] [address], [place] [address] Dec, [facility] [address] [id number] [address] [place] [address], [place] [address] Nov, [facility] [address] [id number] [address] [place] [address], [place] [address] Nov, [facility] [address] [id number] [address] [place] [address], [place] [address] Nov, [facility] [address] [id number] [address] [place] [address], [place] [address] Nov, [facility] [address] [id number] [address] [place] [address], [place] [address] Nov, [facility] [address] [id number] [address] [place] [address], [place] [address] Nov, [facility] [address] [id number] [address] [place] [address], [place] [address] Nov, [facility] [address] [id number] [address] [place] [address], [place] [address] Nov, [facility] [address] [id number] [address] [place] [address], [place] [address] Oct, [facility] [address] [id number] [address] [place] [address], [place] [address] Oct, [facility] [address] [id number] [address] [place] [address], [place] [address] Oct, [facility] [address] [id number] [address] [place] [address], [place] [address] Oct, [facility] [address] [id number] [address] [place] [address], [place] [address] Oct, [facility] [address] [id number] [address] [place] [address], [place] [address] Oct, [facility] [address] [id number] [address] [place] [address], [place] [address] 20 Oct, 2012 [facility] [address] [id number] [address] [place] [address], [place] [address] 20 Oct, 2012 [facility] [address] [id number] [address] [place] [address], [place] [id number] 19 Oct, 2012 [facility] [address] [id number] [address] [place] [address], [place] [address] 18 Oct, 2012 [facility] [address] [id number] [address] [place] [address], [place] [id number] 17 Oct, 2012 [facility] [address] [id number] [address] [place] [address], [place] [address] 14 Oct, 2012 [facility] [address] [id number] [address] [place] [address], [place] [address] 07 Oct, 2012 [facility] [address] [id number] [address] [place] [address], [place] [address] 30 Sep, 2012 [facility] [address] [id number] [address] [place] [address], [place] [address] September, [facility] [address] [id number] [address] [place] [address], [place] [address] 15 Sep, 2012 [facility] [address] [id number] [address] [place] [address], [place] [id number] 25 Aug, 2012 [facility] [address] [id number] [address] [place] [address], [place] [address] 24 Aug, 2012 [facility] [address] [id number] [address] [place] [address], [place] [address] 18 Aug, 2012 [facility] [address] [id number] [address] [place] [address], [place] [address] 18 Aug, 2012 [facility] [address] [id number] [address] [place] [address], [place] [address] 18 Aug, 2012 [facility] [address] [id number] [address] [place] [address], [place] [id number] 08 Aug, 2012 [facility] [address] [id number] [address] [place] [address], [place] [id number] Aug, [facility] [address] [id number] [address] [place] [address], [place] [address] Jul, [facility] [address] [id number] [address] [place] [address], [place] [address] Jul, [facility] [address] [id number] [address] [place] [address], [place] [address] Jul, [facility] [address] [id number] [address] [place] [address], [place] [address] Jul, [facility] [address] [id number] [address] [place] [address], [place] [id number] Jul, [facility] [address] [id number] [address] [place] [address], [place] [address] Jul, [facility] [address] [id number] [address] [place] [address], [place] [address] Jul, [facility] [address] [id number] [address] [place] [address], [place] [address] Jul, [facility] [address] [id number] [address] [place] [address], [place] [address] Jul, [facility] [address] [id number] [address] [place] [address], [place] [address] Jul, [facility] [address] [id number] [address] [place] [address], [place] [address] Jul, [facility] [address] [id number] [address] [place] [address], [place] [id number] Jul, [facility] [address] [id number] [address] [place] [address], [place] [id number] Jul, [facility] [address] [address] [id number] [address] [place] [address], [place] [address] Jun, [facility] [address] [id number] [address] [place] [address], [place] [address] 21 Jun, 2012 [facility] [address] [id number] [address] [place] [address], [place] [address] 19 Jun, 2012 [facility] [address] [id number] [address] [place] [address], [place] [address] 17 Jun, 2012 [facility] [address] [id number] [address] [place] [address], [place] [address] 15 Jun, 2012 [facility] [address] [id number] [address] [place] [address], [place] [address] 14 Jun, 2012 [facility] [address] [id number] [address] [place] [address], [place] [address] 08 Jun, 2012 [facility] [address] [id number] [address] [place] [address], [place] [address] 28 May, 2012 [facility] [address] [id number] [address] [place] [address], [place] [address] 28 May, 2012 [facility] [address] [id number] [address] [place] [address], [place] [address] May, [facility] [address] [id number] [address] [place] [address], [place] [address] May, [facility] [address] [id number] [address] [place] [address], [place] [address] May, [facility] [address] [id number] [address] [place] [address], [place] [address] 24 May, 2012 [facility] [address] [id number] [address] [place] [address], [place] [address] May, [facility] [address] [id number] [address] [place] [address], [place] [address] May, [facility] [address] [id number] [address] [place] [address], [place] [address] May, [facility] [address] [id number] [address] [place] [address], [place] [address] May, [facility] [address] [id number] [address] [place] [address], [place] [address] Apr, [facility] [address] [id number] [address] [place] [address], [place] [address] Apr, [facility] [address] [id number] [address] [place] [address], [place] [address] Apr, [facility] [address] [id number] [address] [place] [address], [place] [address] Apr, [facility] [address] [id number] [address] [place] [address], [place] [address] Apr, [facility] [address] [id number] [address] [place] [address], [place] [address] Apr, [facility] [address] [id number] [address] [place] [address], [place] [address] Apr, [facility] [address] [id number] [address] [place] [address], [place] [address] Apr, [facility] [address] [id number] [address] [place] [address], [place] [address] Apr, [facility] [address] [id number] [address] [place] [address], [place] [address] Apr, [facility] [address] [id number] [address] [place] [address], [place] [address] Apr, [facility] [address] [id number] [address] [place] [address], [place] [address] Apr, [facility] [address] [id number] [address] [place] [address], [place] [address] Mar, [facility] [address] [id number] [address] [place] [address], [place] [address] Mar, [facility] [address] [id number] [address] [place] [address], [place] [address] Mar, [facility] [address] [id number] [address] [place] [address], [place] [address] Mar, 2011 [facility] [address] [id number] [address] [place] [address], [place] [address] 30 Mar, 2011 [facility] [address] [id number] [address] [place] [address], [place] [address] 30 Mar, 2011 [facility] [address] [id number] [address] [place] [address], [place] [address] Mar, 2011 [facility] [address] [id number] [address] [place] [address], [place] [address] Mar, 2011 [facility] [address] [id number] [address] [place] [address], [place] [address] Mar, [facility] [address] [id number] [address] [place] [id number] Mar, 2011 [facility] [address] [id number] [address] [place] [address], [place] [address] Mar, [facility] [address] [id number] [address] [place] [id number] Mar, [facility] [address] [id number] [address] [place] [address], [place] [address] Mar, [facility] [address] [id number] [address] [place] [id number] Mar, [facility] [address] [id number] [address] [place] [id number] Mar, [facility] [address] [id number] [address] [place] [id number] Mar, [facility] [address] [id number] [address] [place] [address], [place] [address] 25 Jan, 2012 [facility] [address] [id number] [address] [place] [id number] 24 Jan, 2012 [facility] [address] [id number] [address] [place] [id number] 22 Jan, 2012 [facility] [address] [id number] [address] [place] [address], [place] [address] 22 Jan, 2012 [facility] [address] [id number] [address] [place] [address], [place] [address] 21 Jan, 2012 [facility] [address] [id number] [address] [place] [address], [place] [address] 18 Jan, 2012 [facility] [address] [id number] [address] [place] [address], [place] [address] 14 Jan, 2012 [facility] [address] [id number] [address] [place] [address], [place] [address] 07 Jan, 2012 [facility] [address] [id number] [address] [place] [address], [place] [address] 15 Dec, 2011 [facility] [address] [id number] [address] [place] [address], [place] [address] 10 Dec, 2011 [facility] [address] [id number] [address] [place] [address], [place] [address] Dec, [facility] [address] [id number] [address] [place] [address], [place] [address] Dec, [facility] [address] [id number] [address] [place] [address], [place] [address] Dec, [facility] [address] [id number] [address] [place] [address], [place] [address] Dec, [facility] [address] [id number] [address] [place] [address], [place] [address] Dec, [facility] [address] [id number] [address] [place] [address], [place] [address] Nov, [facility] [address] [id number] [address] [place] [address], [place] [address] Oct, [facility] [address] [id number] [address] [place] [address], [place] [address] Aug, [facility] [address] [id number] [address] [place] [address], [place] [address] Jul, [facility] [address] [id number] [address] [place] [address], [place] [address] 19 Jul, 2011 [facility] [address] [id number] [address] [place] [address], [place] [address] 16 Jul, 2011 [facility] [address] [id number] [address] [place] [address], [place] [address] 14 Jul, 2011 [facility] [address] [id number] [address] [place] [address], [place] [address] 07 Jul, 2011 [facility] [address] [id number] [address] [place] [address], [place] [address] 02 Jul, 2011 [facility] [address] [id number] [address] [place] [address], [place] [address] 21 Jul, 2011 [facility] [address] [id number] [address] [place] [address], [place] [address] 15 Jul, 2011 [facility] [address] [id number] [address] [place] [address], [place] [address] 13 Jul, 2011 [facility] [address] [id number] [address] [place] [address], [place] [address] 03 Jul, 2011 [facility] [address] [id number] [address] [place] [address], [place] [address] 02 Jul, 2011 [facility] [address] [id number] [address] [place] [address], [place] [address] 24 Jun, 2011 [facility] [address] [id number] [address] [place] [address], [place] [address] 24 Jun, 2011 [facility] [address] [id number] [address] [place] [address], [place] [address] 13 Jun, 2011 [facility] [address] [id number] [address] [place] [address], [place] [address] 11 Jun, 2011 [facility] [address] [id number] [address] [place] [address], [place] [address] 06 Jun, 2011 [facility] [address] [id number] [address] [place] [address], [place] [address] 05 Jun, 2011 [facility] [address] [id number] [address] [place] [address], [place] [address] Jun, [facility] [address] [id number] [address] [place] [address], [place] [address] May, [facility] [address] [id number] [address] [place] [address], [place] [address] May, [facility] [address] [id number] [address] [place] [address], [place] [address] May, [facility] [address] [id number] [address] [place] [address], [place] [address] May, [facility] [address] [id number] [address] [place] [address], [place] [address] May, [facility] [address] [id number] [address] [place] [address], [place] [address] May, [facility] [address] [id number] [address] [place] [address], [place] [address] May, [facility] [address] [id number] [address] [place] [address], [place] [address] May, [facility] [address] [id number] [address] [place] [address], [place] [address] May, [facility] [address] [id number] [address] [place] [address], [place] [address] May, [facility] [address] [id number] [address] [place] [address], [place] [address] Apr, [facility] [address] [id number] [address] [place] [address], [place] [address] Apr, [facility] [address] [id number] [address] [place] [address], [place] [address] Apr, [facility] [address] [id number] [address] [place] [address], [place] [address] Apr, [facility] [address] [facility] [id number] [address] [place] [id number] Mar, [facility] [address] [facility] [id number] [address] [place] [phone] Mar, [facility] [address] [facility] [id number] [address] [place] [address] Mar, [facility] [address] [facility] [id number] [address] [place] [id number] Mar, IMMUNIZATIONS No Known Immunizations SOCIAL HISTORY [...]
--- OUTSIDE RECORDS SUMMARY | 2020-01-03 17:57 | XMS REPORT ---
Author Author Pattie Moffett Doctor Organization [facility] Address Unknown Phone Unavailable Care Team Providers Care Entry Examiner Name Role Phone Migration, Doctor Unavailable Unavailable PROBLEMS Type Condition ICD9-CM Code [id number] Code Onset Dates Condition S tatus SNOMED Code Problem FRANCIS (generalized anxiety disorder) F41.1 Active 84342999 Problem Thoracic disc herniation M51.24 Activ e 304661908 Problem Major depressive disorder in partial remission F32 .4 Active 70047553 Problem Seizure disorder G40.909 Active 128 927931 Problem Conversion disorder (or hysterical neurosis, conversion ty pe) F44.9 Active 99398907 Problem Constipation, unspecified constipation type K59.00 Active 31956206 Problem Mild episode of recurrent major depressive disorder F33.0 Active 357869698 Problem Restless leg syndrome G25.81 Active 32793819 Problem Nonadherence to medication Z91.14 Act vivian 209467594 Problem Slow transit constipation K59.01 Acti ve 89319092 Problem Atrophic vaginitis N95.2 Active 5 4789502 Problem Paroxysmal tachycardia I47.9 Active 64660025 Problem Other chronic pain G89.29 Active 8 4215323 Problem Mild intermittent asthma without complication J45. 20 Active 066019516 Problem Obesity (BMI 30.0-34.9) E66.9 Active [id number] Problem High blood pressure I10 Active 12328947 ALLERGIES No Information ENCOUNTERS Encounter Location Date Diagnosis [place] [id number] [id number] [id number] 26 Oct, 2019 Breast cancer screening Z12.[address] [id number] [address] 08 Oct, 2019 Breast cancer screening Z12. 39 [facility] [address] [facility] [id number] [address] [place] [phone] 05 Oct, 2019 [facility] [address] [facility] [id number] [address] [place] [phone] Oct, [facility] [address] [id number] [address] [place] [phone] September, [facility] [address] [id number] [address] [place] [phone] September, [facility] [address] [id number] [address] [place] [phone] September, Well woman exam with routine gynecological exam Z01.419 and Atrophic vaginitis N95.2 [facility] [address] [id number] [address] [place] [phone] September, Major depressive disorder in partial remission F32.4 ; FRANCIS (generalized anxiety disorder) F41.1 ; Restless leg syndrome G25.81 and Nonadherence to medication Z91.14 [facility] [address] [id number] [address] [place] [phone] September, [facility] [address] [id number] [address] [place] [phone] Aug, [facility] [address] [id number] [address] [place] [id number] Aug, Dental examination Z01.20 [facility] [address] [id number] [address] [place] [id number] 15 Aug, 2019 Dental examination Z01.20 an d Caries K02.9 [facility] [address] [id number] [address] [place] [phone] Aug, [facility] [address] [id number] [address] [place] [phone] Aug, [facility] [address] [id number] [address] [place] [phone] Aug, Other chronic pain G89.29 an d Back muscle spasm M62.830 [facility] [address] [id number] [address] [place] [phone] Aug, [facility] [address] [id number] [address] [place] [phone] Aug, Major depressive disorder in partial remission F32.4 ; FRANCIS (generalized anxiety disorder) F41.1 ; Restless leg syndrome G25.81 and Nonadherence to medication Z91.14 [facility] [address] [id number] [address] [place] [phone] Aug, [facility] [address] [id number] [address] [place] [phone] Jul, [facility] [address] [id number] [address] [place] [phone] Jul, [facility] [address] [id number] [address] [place] [phone] Jul, Major depressive disorder in partial remission F32.4 ; FRANCIS (generalized anxiety disorder) F41.1 ; Restless leg syndrome G25.81 and High blood pressure I10 [facility] [address] [id number] [address] [place] [phone] Jul, [facility] [address] [id number] [address] [place] [phone] Jul, [facility] [address] [id number] [address] [place] [phone] Jun, [facility] [address] [id number] [address] [place] [phone] May, [facility] [address] [id number] [address] [place] [phone] Apr, [facility] [address] [id number] [address] [place] [phone] Apr, [facility] [address] [id number] [address] [place] [phone] Mar, [facility] [address] [id number] [address] [place] [phone] Mar, Major depressive disorder in partial remission F32.4 ; FRANCIS (generalized anxiety disorder) F41.1 and Restless leg syndrome G25.81 [facility] [address] [id number] [address] [place] [phone] Mar, Obesity (BMI 30.0-34.9) E66. 9 [facility] [address] [id number] [address] [place] [phone] Jan, [facility] [address] [id number] [address] [place] [phone] 14 Jan, 2019 Burn T30.0 [facility] [address] [id number] [address] [place] [phone] Dec, [facility] [address] [id number] [address] [place] [phone] Nov, [facility] [address] [id number] [address] [place] [phone] Nov, [facility] [id number] [place] [address] [id number] Nov, Dental examination Z01.20 [facility] [address] [id number] [address] [place] [phone] September, [facility] [address] [place] [id number] [place] [address] [phone] September, Decay, teeth K02.9 and Denta l examination Z01.20 [facility] [address] [id number] [place] [address] [phone] September, Dental examination Z01.20 [facility] [address] [facility] [id number] [address] [place] [phone] September, FRANCIS (generalized anxiety dis order) F41.1 ; Major depressive disorder in partial remission F32.4 and Restless leg syndrome G25.81 [facility] [address] [id number] [address] [place] [phone] Aug, [facility] [address] [id number] [address] [place] [phone] Jul, [place] [address] [phone] Jul, Encounter to discuss test re sults Z71.2 [place] [address] [phone] Jul, Pelvic pain R10.2 ; Screenin g for breast cancer Z12.31 and Obesity (BMI 30.0-34.9) E66.9 [place] [address] [address] Jul, Mild intermittent asthma wit hout complication J45.20 [place] [address] [phone] Jul, Major depressive disorder in partial remission F32.4 and FRANCIS (generalized anxiety disorder) F41.1 [place] [address] [id number] Jul, [place] [address] [phone] Jun, [place] [address] [address] May, Major depressive disorder in partial remission F32.4 ; FRANCIS (generalized anxiety disorder) F41.1 and Restless leg syndrome G25.81 [place] [address] [address] Apr, [place] [address] [address] Mar, [facility] [address] [address] Jan, Pain in thoracic spine M54.6 and Other chronic pain G89.29 [place] [address] [address] 14 Jan, 2018 [place] [address] [address] Jan, Mild episode of recurrent ma saray depressive disorder F33.0 ; FRANCIS (generalized anxiety disorder) F41.1 and Restless leg syndrome G25.81 [facility] [address] [id number] [address] [place] [phone] Dec, [facility] [address] [id number] [address] [place] [phone] Dec, Hospital discharge follow-up Z09 [facility] [address] [id number] [address] [place] [phone] Nov, [facility] [address] [id number] [address] [place] [phone] Nov, [facility] [address] [id number] [address] [place] [phone] September, [facility] [address] [id number] [address] [place] [phone] September, [facility] [address] [id number] [address] [place] [phone] September, Major depressive disorder in partial remission F32.4 ; FRANCIS (generalized anxiety disorder) F41.1 and Restless leg syndrome G25.81 [facility] [address] [id number] [address] [place] [phone] September, [facility] [address] [id number] [address] [place] [phone] Jul, [facility] [address] [id number] [address] [place] [phone] Jul, Dorsalgia, unspecified M54.9 [facility] [address] [facility] [id number] [address] [place] [phone] Jul, Mild episode of recurrent ma saray depressive disorder F33.0 and FRANCIS (generalized anxiety disorder) F41.1 [facility] [address] [id number] [address] [place] [phone] May, [facility] [address] [id number] [address] [place] [phone] May, Dysuria R30.0 and Acute cyst itis with hematuria N30.01 [facility] [address] [id number] [address] [place] [phone] Apr, [facility] [address] [id number] [address] [place] [phone] Apr, Major depressive disorder in partial remission F32.4 and FRANCIS (generalized anxiety disorder) F41.1 [facility] [address] [id number] [address] [place] [id number] Mar, Paroxysmal tachycardia I47.9 [facility] [address] [id number] [address] [place] [phone] Mar, Paroxysmal tachycardia I47.9 and Pain of left lower extremity M79.605 [facility] [address] [id number] [address] [place] [phone] Mar, FRANCIS (generalized anxiety dis order) F41.1 and Major depressive disorder in partial remission F32.4 [facility] [address] [facility] [id number] [address] [place] [phone] Jan, [facility] [address] [id number] [address] [place] [phone] Jan, [facility] [address] [facility] [id number] [address] [place] [phone] Jan, [facility] [address] [id number] [address] [place] [phone] Dec, Constipation, unspecified co nstipation type K59.00 [facility] [address] [id number] [address] [place] [phone] Dec, [facility] [address] [facility] [id number] [address] [place] [phone] Nov, [facility] [address] [facility] [id number] [address] [place] [phone] Nov, Major depressive disorder in partial remission F32.4 and FRANCIS (generalized anxiety disorder) F41.1 [facility] [address] [facility] [id number] [address] [place] [phone] Oct, Abdominal pain R10.9 and Slo w transit constipation K59.01 [facility] [address] [facility] [id number] [address] [place] [phone] Aug, Major depressive disorder in partial remission F32.4 ; FRANCIS (generalized anxiety disorder) F41.1 ; Conversion disorder (or hysterical neurosis, conversion type) F44.9 ; Dorsalgia, unspecified M54.9 and Long-term use of high-risk medication Z79.899 [facility] [address] [facility] [id number] [address] [place] [phone] Aug, [place] [address] [place] [id number] [place] [phone] Jul, Paroxysmal tachycardia I47.9 [facility] [address] [facility] [id number] [address] [place] [id number] Jul, Paroxysmal tachycardia I47.9 [place] [address] [facility] [id number] [address] [place] [phone] Jun, [facility] [address] [facility] [id number] [address] [place] [phone] Jun, Major depressive disorder in partial remission F32.4 ; FRANCIS (generalized anxiety disorder) F41.1 and Conversion disorder (or hysterical neurosis, conversion type) F44.9 [facility] [address] [facility] [id number] [address] [place] [phone] May, Pelvic pain R10.2 [facility] [address] [facility] [id number] [address] [place] [phone] Apr, Gastroenteritis K52.9 [facility] [address] [facility] [id number] [address] [place] [phone] Apr, Blood in urine R31.9 [address] cystitis with hematuria N30.01 [facility] [address] [id number] [address] [place] [phone] Apr, Major depressive disorder in partial remission F32.4 ; FRANCIS (generalized anxiety disorder) F41.1 and Conversion disorder (or hysterical neurosis, conversion type) F44.9 [facility] [address] [id number] [address] [place] [phone] Apr, [facility] [address] [id number] [address] [place] [phone] Apr, Abnormal mammogram R92.8 [facility] [address] [id number] [address] [place] [phone] Mar, [facility] [address] [id number] [address] [place] [phone] Mar, Gastroenteritis K52.9 and Se izure disorder G40.909 [facility] [address] [id number] [address] [place] [phone] Dec, [facility] [address] [id number] [address] [place] [phone] Dec, Other headache syndrome G44. 89 [facility] [address] [id number] [address] [place] [phone] Dec, [facility] [address] [id number] [address] [place] [phone] Dec, Thoracic disc herniation M51 .24 [facility] [address] [id number] [address] [place] [phone] Dec, [facility] [address] [facility] [id number] [address] [place] [phone] Nov, Major depressive disorder in partial remission F32.4 and FRANCIS (generalized anxiety disorder) F41.1 [facility] [address] [facility] [id number] [address] [place] [phone] Nov, [place] [address] [id number] [address] [place] [phone] Nov, Dorsalgia, unspecified M54.9 [facility] [address] [id number] [address] [place] [address], [place] [address] Oct, [facility] [address] [id number] [address] [place] [phone] September, [facility] [address] [id number] [address] [place] [phone] Aug, [facility] [address] [id number] [address] [place] [phone] Aug, Major depressive disorder in partial remission F32.4 and FRANCIS (generalized anxiety disorder) F41.1 [facility] [address] [id number] [address] [place] [phone] Aug, [facility] [address] [id number] [address] [place] [phone] Jul, Abnormal mammogram R92.8 [facility] [address] [id number] [address] [place] [phone] Jul, [facility] [address] [id number] [address] [place] [phone] Jul, [facility] [address] [id number] [address] [place] [phone] Jul, [facility] [address] [id number] [address] [place] [id number] Jul, [facility] [address] [id number] [address] [place] [phone] Jul, [facility] [address] [id number] [address] [place] [phone] Jul, [facility] [address] [id number] [address] [place] [phone] Jun, Major depressive disorder in partial remission F32.4 and FRANCIS (generalized anxiety disorder) F41.1 [facility] [address] [id number] [address] [place] [phone] Jun, [facility] [address] [id number] [address] [place] [phone] May, [facility] [address] [id number] [address] [place] [phone] Apr, [facility] [address] [id number] [address] [place] [phone] Mar, Major depressive disorder, r ecurrent episode, moderate F33.1 ; PTSD (post-traumatic stress disorder) F43.10 and FRANCIS (generalized anxiety disorder) F41.1 [facility] [address] [id number] [address] [place] [phone] Mar, [facility] [address] [id number] [address] [place] [phone] Mar, [facility] [address] [id number] [address] [place] [phone] Mar, [facility] [address] [id number] [address] [place] [phone] Mar, [facility] [address] [id number] [address] [place] [phone] Jan, [facility] [address] [id number] [address] [place] [phone] 15 Jan, 2015 [facility] [address] [id number] [address] [place] [phone] 15 Jan, 2015 [facility] [address] [id number] [address] [place] [phone] 14 Jan, 2015 Thoracic disc herniation 722 .11 [facility] [address] [id number] [address] [place] [phone] Dec, [facility] [address] [id number] [address] [place] [phone] Dec, [facility] [address] [id number] [address] [place] [phone] Dec, [facility] [address] [id number] [address] [place] [phone] Nov, [facility] [address] [id number] [address] [place] [id number] Nov, Generalized anxiety disorder 300.02 ; Posttraumatic stress disorder 309.81 and Major depressive disorder, recurrent episode, moderate 296.32 [facility] [address] [id number] [address] [place] [address], [place] [id number] Nov, [facility] [address] [id number] [address] [place] [phone] Nov, [facility] [address] [id number] [address] [place] [phone] Oct, [facility] [address] [id number] [address] [place] [id number] Oct, [facility] [address] [id number] [address] [place] [id number] Oct, [facility] [address] [id number] [address] [place] [address], [place] [id number] September, [facility] [address] [id number] [address] [place] [phone] September, [facility] [address] [id number] [address] [place] [id number] Aug, [facility] [address] [id number] [address] [place] [id number] Aug, [facility] [address] [id number] [address] [place] [id number] Jul, [facility] [address] [id number] [address] [place] [phone] Jul, [facility] [address] [id number] [address] [place] [phone] Jul, [facility] [address] [id number] [address] [place] [address], [place] [id number] 17 Jul, 2014 [facility] [address] [id number] [address] [place] [address], [place] [id number] 16 Jul, 2014 [facility] [address] [id number] [address] [place] [address], [place] [id number] 16 Jul, 2014 [facility] [address] [id number] [address] [place] [address], [place] [id number] Jul, [facility] [address] [id number] [address] [place] [address], [place] [id number] Jul, [facility] [address] [id number] [address] [place] [address], [place] [id number] Jul, [facility] [address] [id number] [address] [place] [address], [place] [id number] Jul, [facility] [address] [id number] [address] [place] [address], [place] [id number] Jun, [facility] [address] [id number] [address] [place] [address], [place] [id number] Jun, [facility] [address] [id number] [address] [place] [address], [place] [id number] 05 Jun, 2014 [facility] [address] [id number] [address] [place] [address], [place] [id number] May, [facility] [address] [id number] [address] [place] [address], [place] [id number] Apr, [facility] [address] [id number] [address] [place] [address], [place] [id number] Apr, [facility] [facility] [address] [id number] [address] [place] [address], [place] [address] Apr, [facility] [address] [id number] [address] [place] [address], [place] [address] Apr, [facility] [address] [id number] [address] [place] [address], [place] [address] 07 Apr, 2014 [facility] [address] [id number] [address] [place] [address], [place] [address] 07 Apr, 2014 [facility] [address] [id number] [address] [place] [address], [place] [address] Apr, [facility] [address] [id number] [address] [place] [address], [place] [address] Apr, [facility] [address] [id number] [address] [place] [address], [place] [address] Mar, [facility] [address] [id number] [address] [place] [address], [place] [address] 24 Mar, 2014 [facility] [address] [id number] [address] [place] [address], [place] [address] Mar, [facility] [address] [id number] [address] [place] [address], [place] [address] Mar, [facility] [address] [id number] [address] [place] [address], [place] [address] Mar, [facility] [address] [id number] [address] [place] [address], [place] [address] Mar, [facility] [address] [id number] [address] [place] [address], [place] [address] Mar, [facility] [address] [id number] [address] [place] [address], [place] [address] Mar, [facility] [address] [id number] [address] [place] [address], [place] [address] 23 Mar, 2014 [facility] [address] [id number] [address] [place] [address], [place] [address] Mar, [facility] [address] [id number] [address] [place] [address], [place] [address] 17 Mar, 2014 [facility] [address] [id number] [address] [place] [address], [place] [address] 14 Mar, 2014 [facility] [address] [id number] [address] [place] [address], [place] [address] 14 Mar, 2013 [facility] [address] [id number] [address] [place] [address], [place] [address] 07 Mar, 2013 [facility] [address] [id number] [address] [place] [address], [place] [address] 07 Mar, 2013 [facility] [address] [id number] [address] [place] [address], [place] [address] 06 Mar, 2013 [facility] [address] [id number] [address] [place] [address], [place] [address] 06 Mar, 2013 [facility] [address] [id number] [address] [place] [address], [place] [address] 19 Sep, 2013 [facility] [address] [id number] [address] [place] [address], [place] [address] 19 Sep, 2013 [facility] [address] [id number] [address] [place] [address], [place] [address] 09 Sep, 2013 [facility] [address] [id number] [address] [place] [address], [place] [address] 09 Sep, 2013 [facility] [address] [id number] [address] [place] [address], [place] [address] 05 Sep, 2013 [facility] [address] [id number] [address] [place] [address], [place] [address] 05 Sep, 2013 [facility] [address] [id number] [address] [place] [address], [place] [address] 05 Sep, 2013 [facility] [address] [id number] [address] [place] [address], [place] [address] 05 Sep, 2013 [facility] [address] [id number] [address] [place] [address], [place] [address] 03 Sep, 2013 [facility] [address] [id number] [address] [place] [address], [place] [address] 02 Sep, 2013 [facility] [address] [id number] [address] [place] [address], [place] [address] Jan, [facility] [address] [id number] [address] [place] [address], [place] [address] Jan, [facility] [address] [id number] [address] [place] [address], [place] [address] Jan, [facility] [address] [id number] [address] [place] [address], [place] [address] Dec, [facility] [address] [id number] [address] [place] [address], [place] [address] Dec, [facility] [address] [id number] [address] [place] [address], [place] [address] Dec, [facility] [address] [id number] [address] [place] [address], [place] [address] Dec, [facility] [address] [id number] [address] [place] [address], [place] [address] Dec, [facility] [address] [id number] [address] [place] [address], [place] [address] Dec, [facility] [address] [place] [id number] Dec, [facility] [address] [place] [id number] Dec, [facility] [address] [id number] [address] [place] [id number] Dec, [facility] [address] [id number] [address] [place] [address], [place] [address] Dec, [facility] [address] [id number] [address] [place] [address], [place] [address] Dec, [facility] [address] [id number] [address] [place] [address], [place] [address] Dec, [facility] [address] [id number] [address] [place] [address], [place] [address] Nov, [facility] [address] [id number] [address] [place] [address], [place] [address] Nov, [facility] [address] [id number] [facility] [address] Nov, [facility] [address] [id number] [facility] [address] Nov, [facility] [address] [id number] [facility] [address] Nov, [facility] [address] [id number] [facility] [address] Nov, [facility] [address] [id number] [facility] [address] Nov, [facility] [address] [id number] [address] [place] [address], [place] [address] Nov, [facility] [address] [id number] [address] [place] [address], [place] [address] Nov, [facility] [address] [id number] [address] [place] [address], [place] [address] Nov, [facility] [address] [id number] [address] [place] [address], [place] [address] Nov, [facility] [address] [id number] [address] [place] [address], [place] [address] Nov, [facility] [address] [id number] [address] [place] [address], [place] [address] Nov, [facility] [address] [id number] [address] [place] [address], [place] [address] Oct, [facility] [address] [id number] [address] [place] [address], [place] [address] Oct, [facility] [address] [id number] [address] [place] [address], [place] [address] Oct, [facility] [address] [id number] [address] [place] [address], [place] [address] Oct, [facility] [address] [id number] [facility] [address] Oct, [facility] [address] [id number] [address] [place] [address], [place] [address] Oct, [facility] [address] [id number] [address] [place] [address], [place] [address] Oct, [facility] [address] [id number] [address] [place] [address], [place] [address] Oct, [facility] [address] [id number] [address] [place] [address], [place] [address] Oct, [facility] [address] [id number] [address] [place] [address], [place] [address] Oct, [facility] [address] [id number] [address] [place] [address], [place] [address] Oct, [facility] [address] [id number] [address] [place] [address], [place] [address] Oct, [facility] [address] [id number] [address] [place] [address], [place] [address] September, [facility] [address] [id number] [address] [place] [address], [place] [address] September, [facility] [address] [id number] [address] [place] [address], [place] [address] September, [facility] [address] [id number] [address] [place] [address], [place] [address] September, [facility] [address] [id number] [address] [place] [address], [place] [address] Aug, [facility] [address] [id number] [address] [place] [address], [place] [address] Aug, [facility] [address] [id number] [address] [place] [address], [place] [address] Aug, [facility] [address] [id number] [address] [place] [address], [place] [address] Aug, [facility] [address] [id number] [address] [place] [address], [place] [address] Aug, [facility] [address] [id number] [address] [place] [address], [place] [address] Aug, [facility] [address] [id number] [address] [place] [address], [place] [address] Aug, [facility] [address] [id number] [address] [place] [address], [place] [address] Jul, [facility] [address] [id number] [address] [place] [address], [place] [address] Jul, [facility] [address] [id number] [address] [place] [address], [place] [address] Jul, [facility] [address] [id number] [address] [place] [address], [place] [address] Jul, [facility] [address] [id number] [address] [place] [address], [place] [address] Jul, [facility] [address] [id number] [address] [place] [address], [place] [address] Jul, [facility] [address] [id number] [address] [place] [address], [place] [address] Jul, [facility] [address] [id number] [address] [place] [address], [place] [address] Jul, [facility] [address] [id number] [address] [place] [address], [place] [address] Jul, [facility] [address] [id number] [address] [place] [address], [place] [address] Jul, [facility] [address] [id number] [address] [place] [address], [place] [address] Jul, [facility] [address] [id number] [address] [place] [address], [place] [address] Jul, [facility] [address] [id number] [address] [place] [address], [place] [address] 14 Jul, 2013 [facility] [address] [id number] [address] [place] [address], [place] [address] 14 Jul, 2013 [facility] [address] [id number] [address] [place] [address], [place] [address] 11 Jul, 2013 [facility] [address] [id number] [address] [place] [address], [place] [address] 11 Jul, 2013 [facility] [address] [id number] [address] [place] [address], [place] [address] 11 Jul, 2013 [facility] [address] [id number] [address] [place] [address], [place] [address] Jul, [facility] [address] [id number] [address] [place] [address], [place] [address] Jun, [facility] [address] [id number] [address] [place] [address], [place] [address] 31 Jun, 2013 [facility] [address] [id number] [address] [place] [address], [place] [address] 15 Jun, 2013 [facility] [address] [id number] [address] [place] [address], [place] [address] 15 Jun, 2013 [facility] [address] [id number] [address] [place] [address], [place] [address] 14 Jun, 2013 [facility] [address] [id number] [address] [place] [address], [place] [address] 14 Jun, 2013 [facility] [address] [id number] [address] [place] [address], [place] [address] 14 Jun, 2013 [facility] [address] [id number] [address] [place] [address], [place] [address] 14 Jun, 2013 [facility] [address] [id number] [address] [place] [address], [place] [address] 14 Jun, 2013 [facility] [address] [id number] [address] [place] [address], [place] [address] 14 Jun, 2013 [facility] [address] [id number] [address] [place] [address], [place] [address] 27 May, 2013 [facility] [address] [id number] [address] [place] [address], [place] [address] 27 May, 2013 [facility] [address] [id number] [address] [place] [address], [place] [address] 26 May, 2013 [facility] [address] [id number] [address] [place] [address], [place] [address] 19 May, 2013 [facility] [address] [id number] [address] [place] [address], [place] [address] 19 May, 2013 [facility] [address] [id number] [address] [place] [address], [place] [address] 16 May, 2013 [facility] [address] [id number] [address] [place] [address], [place] [address] 16 May, 2013 [facility] [address] [id number] [address] [place] [address], [place] [address] 16 May, 2013 [facility] [address] [id number] [address] [place] [address], [place] [address] 16 May, 2013 [facility] [address] [id number] [address] [place] [address], [place] [address] 13 May, 2013 [facility] [address] [id number] [address] [place] [address], [place] [address] 13 May, 2013 [facility] [address] [id number] [address] [place] [address], [place] [address] 11 May, 2013 [facility] [address] [id number] [address] [place] [address], [place] [address] 20 Apr, 2013 [facility] [address] [id number] [address] [place] [address], [place] [address] 18 Apr, 2013 [facility] [address] [id number] [address] [place] [address], [place] [address] 18 Apr, 2013 [facility] [address] [id number] [address] [place] [id number] Apr, [facility] [address] [id number] [address] [place] [address], [place] [address] Apr, [facility] [address] [id number] [address] [place] [id number] 08 Apr, 2013 [facility] [address] [id number] [address] [place] [address] 08 Apr, 2013 [facility] [address] [id number] [address] [place] [id number] Apr, [facility] [address] [id number] [address] [place] [address], [place] [address] Apr, [facility] [address] [id number] [address] [place] [id number] Apr, [facility] [address] [id number] [address] [place] [id number] Apr, [facility] [address] [id number] [address] [place] [id number] Mar, [facility] [address] [id number] [address] [place] [id number] Mar, [facility] [address] [id number] [address] [place] [id number] Mar, [facility] [address] [id number] [address] [place] [id number] Mar, [facility] [address] [id number] [address] [place] [id number] Mar, [facility] [address] [id number] [address] [place] [id number] Mar, [facility] [address] [id number] [address] [place] [id number] Mar, [facility] [address] [id number] [address] [place] [id number] 18 Mar, 2013 [facility] [address] [id number] [address] [place] [address], [place] [address] 18 Mar, 2013 [facility] [address] [id number] [address] [place] [address], [place] [address] 15 Mar, 2013 [facility] [address] [id number] [address] [place] [address], [place] [address] 15 Mar, 2013 [facility] [address] [id number] [address] [place] [address], [place] [address] Mar, [facility] [address] [id number] [address] [place] [address], [place] [address] 30 Jan, 2013 [facility] [address] [id number] [address] [place] [address], [place] [address] 25 Jan, 2013 [facility] [address] [id number] [address] [place] [address], [place] [address] 20 Jan, 2013 [facility] [address] [id number] [address] [place] [address], [place] [address] Jan, [facility] [address] [id number] [address] [place] [address], [place] [address] Dec, [facility] [address] [id number] [address] [place] [address], [place] [address] Dec, [facility] [address] [id number] [address] [place] [address], [place] [address] Dec, [facility] [address] [id number] [address] [place] [address], [place] [address] Dec, [facility] [address] [id number] [address] [place] [address], [place] [address] Dec, [facility] [address] [id number] [address] [place] [address], [place] [address] Dec, [facility] [address] [id number] [address] [place] [address], [place] [address] Dec, [facility] [address] [id number] [address] [place] [address], [place] [address] Dec, [facility] [address] [id number] [address] [place] [address], [place] [address] Dec, [facility] [address] [id number] [address] [place] [address], [place] [address] Nov, [facility] [address] [id number] [address] [place] [address], [place] [address] Nov, [facility] [address] [id number] [address] [place] [address], [place] [address] Nov, [facility] [address] [id number] [address] [place] [address], [place] [address] Nov, [facility] [address] [id number] [address] [place] [address], [place] [address] Nov, [facility] [address] [id number] [address] [place] [address], [place] [address] Nov, [facility] [address] [id number] [address] [place] [address], [place] [address] Nov, [facility] [address] [id number] [address] [place] [address], [place] [address] Nov, [facility] [address] [id number] [address] [place] [address], [place] [address] Oct, [facility] [address] [id number] [address] [place] [address], [place] [address] Oct, [facility] [address] [id number] [address] [place] [address], [place] [address] Oct, [facility] [address] [id number] [address] [place] [address], [place] [address] Oct, [facility] [address] [id number] [address] [place] [address], [place] [address] Oct, [facility] [address] [id number] [address] [place] [address], [place] [address] Oct, [facility] [address] [id number] [address] [place] [address], [place] [address] 20 Oct, 2012 [facility] [address] [id number] [address] [place] [address], [place] [address] 20 Oct, 2012 [facility] [address] [id number] [address] [place] [address], [place] [address] 19 Oct, 2012 [facility] [address] [id number] [address] [place] [address], [place] [address] 18 Oct, 2012 [facility] [address] [id number] [address] [place] [address], [place] [address] 17 Oct, 2012 [facility] [address] [id number] [address] [place] [address], [place] [address] 14 Oct, 2012 [facility] [address] [id number] [address] [place] [address], [place] [address] 07 Oct, 2012 [facility] [address] [id number] [address] [place] [address], [place] [address] 30 Sep, 2012 [facility] [address] [id number] [address] [place] [address], [place] [address] September, [facility] [address] [id number] [address] [place] [address], [place] [address] 15 Sep, 2012 [facility] [address] [id number] [address] [place] [address], [place] [address] 25 Aug, 2012 [facility] [address] [id number] [address] [place] [address], [place] [address] 24 Aug, 2012 [facility] [address] [id number] [address] [place] [address], [place] [address] 18 Aug, 2012 [facility] [address] [id number] [address] [place] [address], [place] [address] 18 Aug, 2012 [facility] [address] [id number] [address] [place] [address], [place] [id number] 18 Aug, 2012 [facility] [address] [id number] [address] [place] [address], [place] [address] 08 Aug, 2012 [facility] [address] [id number] [address] [place] [address], [place] [address] Aug, [facility] [address] [id number] [address] [place] [address], [place] [address] Jul, [facility] [address] [id number] [address] [place] [address], [place] [address] Jul, [facility] [address] [id number] [address] [place] [address], [place] [address] Jul, [facility] [address] [id number] [address] [place] [address], [place] [address] Jul, [facility] [address] [id number] [address] [place] [address], [place] [address] Jul, [facility] [facility] [address] [id number] [address] [place] [address], [place] [address] Jul, [facility] [address] [id number] [address] [place] [address], [place] [address] Jul, [facility] [address] [id number] [address] [place] [address], [place] [address] Jul, [facility] [address] [id number] [address] [place] [address], [place] [address] Jul, [facility] [address] [id number] [address] [place] [address], [place] [address] Jul, [facility] [address] [id number] [address] [place] [address], [place] [address] Jul, [facility] [address] [id number] [address] [place] [address], [place] [address] Jul, [facility] [address] [id number] [address] [place] [address], [place] [address] Jul, [facility] [address] [id number] [address] [place] [address], [place] [address] Jun, [facility] [address] [id number] [address] [place] [address], [place] [address] 21 Jun, 2012 [facility] [address] [id number] [address] [place] [address], [place] [address] 19 Jun, 2012 [facility] [address] [id number] [address] [place] [address], [place] [address] 17 Jun, 2012 [facility] [address] [id number] [address] [place] [address], [place] [address] 15 Jun, 2012 [facility] [address] [id number] [address] [place] [address], [place] [address] 14 Jun, 2012 [facility] [address] [id number] [address] [place] [address], [place] [address] 08 Jun, 2012 [facility] [address] [id number] [address] [place] [address], [place] [address] 28 May, 2012 [facility] [address] [id number] [address] [place] [address], [place] [address] 28 May, 2012 [facility] [address] [id number] [address] [place] [address], [place] [address] May, [facility] [address] [id number] [address] [place] [address], [place] [address] May, [facility] [address] [id number] [address] [place] [address], [place] [address] May, [facility] [address] [id number] [address] [place] [address], [place] [address] 24 May, 2012 [facility] [address] [id number] [address] [place] [address], [place] [address] May, [facility] [address] [id number] [address] [place] [address], [place] [address] May, [facility] [address] [id number] [address] [place] [address], [place] [address] May, [facility] [address] [id number] [address] [place] [address], [place] [address] May, [facility] [address] [id number] [address] [place] [address], [place] [address] Apr, [facility] [address] [id number] [address] [place] [address], [place] [address] Apr, [facility] [address] [id number] [address] [place] [address], [place] [address] Apr, [facility] [address] [id number] [address] [place] [address], [place] [address] Apr, [facility] [address] [id number] [address] [place] [address], [place] [address] Apr, [facility] [address] [id number] [address] [place] [address], [place] [address] Apr, [facility] [address] [id number] [address] [place] [address], [place] [address] Apr, [facility] [address] [id number] [address] [place] [address], [place] [address] Apr, [facility] [address] [id number] [address] [place] [address], [place] [address] Apr, [facility] [address] [id number] [address] [place] [address], [place] [address] Apr, [facility] [address] [id number] [address] [place] [address], [place] [address] Apr, [facility] [address] [id number] [address] [place] [address], [place] [address] Apr, [facility] [address] [id number] [address] [place] [address], [place] [address] Mar, [facility] [address] [id number] [address] [place] [address], [place] [address] Mar, [facility] [address] [id number] [address] [place] [address], [place] [address] Mar, [facility] [address] [id number] [address] [place] [address], [place] [address] Mar, 2011 [facility] [address] [id number] [address] [place] [address], [place] [address] 30 Mar, 2011 [facility] [address] [id number] [address] [place] [address], [place] [address] 30 Mar, 2011 [facility] [address] [id number] [address] [place] [address], [place] [address] Mar, 2011 [facility] [address] [id number] [address] [place] [address], [place] [address] Mar, 2011 [facility] [address] [id number] [address] [place] [address], [place] [address] Mar, [facility] [address] [id number] [address] [place] [id number] Mar, 2011 [facility] [address] [id number] [address] [place] [address], [place] [address] Mar, [facility] [address] [id number] [address] [place] [id number] Mar, [facility] [address] [id number] [address] [place] [address], [place] [address] Mar, [facility] [address] [id number] [address] [place] [id number] Mar, [facility] [address] [id number] [address] [place] [id number] Mar, [facility] [address] [id number] [address] [place] [id number] Mar, [facility] [address] [id number] [address] [place] [address], [place] [address] 25 Jan, 2012 [facility] [address] [id number] [address] [place] [id number] 24 Jan, 2012 [facility] [address] [id number] [address] [place] [id number] 22 Jan, 2012 [facility] [address] [id number] [address] [place] [address], [place] [address] 22 Jan, 2012 [facility] [address] [id number] [address] [place] [address], [place] [address] 21 Jan, 2012 [facility] [address] [id number] [address] [place] [address], [place] [address] 18 Jan, 2012 [facility] [address] [id number] [address] [place] [address], [place] [address] 14 Jan, 2012 [facility] [address] [id number] [address] [place] [address], [place] [address] 07 Jan, 2012 [facility] [address] [id number] [address] [place] [address], [place] [address] 15 Dec, 2011 [facility] [address] [id number] [address] [place] [address], [place] [address] 10 Dec, 2011 [facility] [address] [id number] [address] [place] [address], [place] [address] Dec, [facility] [address] [id number] [address] [place] [address], [place] [address] Dec, [facility] [address] [id number] [address] [place] [address], [place] [address] Dec, [facility] [address] [id number] [address] [place] [address], [place] [address] Dec, [facility] [address] [id number] [address] [place] [address], [place] [address] Dec, [facility] [address] [id number] [address] [place] [address], [place] [address] Nov, [facility] [address] [id number] [address] [place] [address], [place] [address] Oct, [facility] [address] [id number] [address] [place] [address], [place] [address] Aug, [facility] [address] [id number] [address] [place] [address], [place] [address] Jul, [facility] [address] [id number] [address] [place] [address], [place] [address] 19 Jul, 2011 [facility] [address] [id number] [address] [place] [address], [place] [address] 16 Jul, 2011 [facility] [address] [id number] [address] [place] [address], [place] [address] 14 Jul, 2011 [facility] [address] [id number] [address] [place] [address], [place] [address] 07 Jul, 2011 [facility] [address] [id number] [address] [place] [address], [place] [address] 02 Jul, 2011 [facility] [address] [id number] [address] [place] [address], [place] [address] 21 Jul, 2011 [facility] [address] [id number] [address] [place] [address], [place] [address] 15 Jul, 2011 [facility] [address] [id number] [address] [place] [address], [place] [address] 13 Jul, 2011 [facility] [address] [id number] [address] [place] [address], [place] [address] 03 Jul, 2011 [facility] [address] [id number] [address] [place] [address], [place] [address] 02 Jul, 2011 [facility] [address] [id number] [address] [place] [address], [place] [address] 24 Jun, 2011 [facility] [address] [id number] [address] [place] [address], [place] [address] 24 Jun, 2011 [facility] [address] [id number] [address] [place] [address], [place] [address] 13 Jun, 2011 [facility] [address] [id number] [address] [place] [address], [place] [address] 11 Jun, 2011 [facility] [address] [id number] [address] [place] [address], [place] [address] 06 Jun, 2011 [facility] [address] [id number] [address] [place] [address], [place] [address] 05 Jun, 2011 [facility] [address] [id number] [address] [place] [address], [place] [address] Jun, [facility] [address] [id number] [address] [place] [address], [place] [address] May, [facility] [address] [id number] [address] [place] [address], [place] [address] May, [facility] [address] [id number] [address] [place] [address], [place] [address] May, [facility] [address] [id number] [address] [place] [address], [place] [address] May, [facility] [address] [id number] [address] [place] [address], [place] [address] May, [facility] [address] [id number] [address] [place] [address], [place] [address] May, [facility] [address] [id number] [address] [place] [address], [place] [address] May, [facility] [address] [id number] [address] [place] [address], [place] [address] May, [facility] [address] [id number] [address] [place] [address], [place] [address] May, [facility] [address] [id number] [address] [place] [address], [place] [address] May, [facility] [address] [id number] [address] [place] [address], [place] [address] Apr, [facility] [address] [id number] [address] [place] [address], [place] [address] Apr, [facility] [address] [id number] [address] [place] [address], [place] [address] Apr, [facility] [address] [id number] [address] [place] [address], [place] [address] Apr, [facility] [address] [facility] [id number] [address] [place] [id number] Mar, [facility] [address] [facility] [id number] [address] [place] [id number] Mar, [facility] [address] [facility] [id number] [address] [place] [id number] Mar, [facility] [address] [facility] [id number] [address] [place] [id number] Mar, IMMUNIZATIONS No Known Immunizations SOCIAL HISTORY [...]
--- OUTSIDE RECORDS SUMMARY | 2020-01-03 17:58 | XMS REPORT ---
Author Author Pattie Moffett Doctor Organization [facility] Address Unknown Phone Unavailable Care Team Providers Care Manager Exchange Name Role Phone Migration, Doctor Unavailable Unavailable PROBLEMS Type Condition ICD9-CM Code AXR91-WU Code Onset Dates Condition S tatus SNOMED Code Problem FRANCIS (generalized anxiety disorder) F41.1 Active 67292181 Problem Thoracic disc herniation M51.24 Activ e 244315250 Problem Major depressive disorder in partial remission F32 .4 Active 86092465 Problem Seizure disorder G40.909 Active 128 350839 Problem Conversion disorder (or hysterical neurosis, conversion ty pe) F44.9 Active 37443645 Problem Constipation, unspecified constipation type K59.00 Active 90549131 Problem Mild episode of recurrent major depressive disorder F33.0 Active 727745004 Problem Restless leg syndrome G25.81 Active 75323812 Problem Nonadherence to medication Z91.14 Act vivian 263281995 Problem Slow transit constipation K59.01 Acti ve 70874973 Problem Atrophic vaginitis N95.2 Active 5 5030015 Problem Paroxysmal tachycardia I47.9 Active 76233137 Problem Other chronic pain G89.29 Active 8 2071876 Problem Mild intermittent asthma without complication J45. 20 Active 606903641 Problem Obesity (BMI 30.0-34.9) E66.9 Active [id number] Problem High blood pressure I10 Active 74564115 ALLERGIES No Information ENCOUNTERS Encounter Location Date Diagnosis [place] [id number] [facility] [address] [id number] [id number] 26 Oct, 2019 Breast cancer screening Z12.[address] [id number] [address] 08 Oct, 2019 Breast cancer screening Z12. 39 [facility] [address] [facility] [id number] [address] [place] [id number] 05 Oct, 2019 [facility] [address] [facility] [id number] [address] [place] [phone] Oct, [facility] [address] [id number] [address] [place] [address] September, [facility] [address] [id number] [address] [place] [address] September, [facility] [address] [id number] [address] [place] [address] September, Well woman exam with routine gynecological exam Z01.419 and Atrophic vaginitis N95.2 [facility] [address] [id number] [address] [place] [address] September, Major depressive disorder in partial remission F32.4 ; FRANCIS (generalized anxiety disorder) F41.1 ; Restless leg syndrome G25.81 and Nonadherence to medication Z91.14 [facility] [address] [id number] [address] [place] [address] September, [facility] [address] [id number] [address] [place] [address] Aug, [facility] [address] [id number] [address] [place] [id number] Aug, Dental examination Z01.20 [facility] [address] [id number] [address] [place] [id number] 15 Aug, 2019 Dental examination Z01.20 an d Caries K02.9 [facility] [address] [id number] [address] [place] [address] Aug, [facility] [address] [id number] [address] [place] [address] Aug, [facility] [address] [id number] [address] [place] [address] Aug, Other chronic pain G89.29 an d Back muscle spasm M62.830 [facility] [address] [id number] [address] [place] [address] Aug, [facility] [address] [id number] [address] [place] [address] Aug, Major depressive disorder in partial remission F32.4 ; FRANCIS (generalized anxiety disorder) F41.1 ; Restless leg syndrome G25.81 and Nonadherence to medication Z91.14 [facility] [address] [id number] [address] [place] [address] Aug, [facility] [address] [id number] [address] [place] [address] Jul, [facility] [address] [id number] [address] [place] [address] Jul, [facility] [address] [id number] [address] [place] [address] Jul, Major depressive disorder in partial remission F32.4 ; FRANCIS (generalized anxiety disorder) F41.1 ; Restless leg syndrome G25.81 and High blood pressure I10 [facility] [address] [id number] [address] [place] [address] Jul, [facility] [address] [id number] [address] [place] [address] Jul, [facility] [address] [id number] [address] [place] [address] Jun, [facility] [address] [id number] [address] [place] [address] May, [facility] [address] [id number] [address] [place] [address] Apr, [facility] [address] [id number] [address] [place] [address] Apr, [facility] [address] [id number] [address] [place] [address] Mar, [facility] [address] [id number] [address] [place] [address] Mar, Major depressive disorder in partial remission F32.4 ; FRANCIS (generalized anxiety disorder) F41.1 and Restless leg syndrome G25.81 [facility] [address] [id number] [address] [place] [address] Mar, Obesity (BMI 30.0-34.9) E66. 9 [facility] [address] [id number] [address] [place] [address] Jan, [facility] [address] [id number] [address] [place] [address] 14 Jan, 2019 Burn T30.0 [facility] [address] [id number] [address] [place] [address] Dec, [facility] [address] [id number] [address] [place] [address] Nov, [facility] [address] [id number] [address] [place] [address] Nov, [facility] [address] [id number] [place] [phone] Nov, Dental examination Z01.20 [facility] [address] [id number] [address] [place] [address] September, [facility] [address] [place] [id number] [place] [phone] September, Decay, teeth K02.9 and Denta l examination Z01.20 [facility] [address] [id number] [place] [phone] September, Dental examination Z01.20 [facility] [address] [facility] [id number] [address] [place] [address] September, FRANCIS (generalized anxiety dis order) F41.1 ; Major depressive disorder in partial remission F32.4 and Restless leg syndrome G25.81 [facility] [address] [id number] [address] [place] [address] Aug, [facility] [address] [id number] [address] [place] [address] Jul, [place] [address] [address] Jul, Encounter to discuss test re sults Z71.2 [place] [address] [address] Jul, Pelvic pain R10.2 ; Screenin g for breast cancer Z12.31 and Obesity (BMI 30.0-34.9) E66.9 [place] [address] [address] Jul, Mild intermittent asthma wit hout complication J45.20 [place] [address] [address] Jul, Major depressive disorder in partial remission F32.4 and FRANCIS (generalized anxiety disorder) F41.1 [place] [address] [address] Jul, [place] [address] [address] Jun, [place] [address] [address] May, Major depressive disorder in partial remission F32.4 ; FRANCIS (generalized anxiety disorder) F41.1 and Restless leg syndrome G25.81 [place] [address] [address] Apr, [place] [address] [address] Mar, [facility] [address] [address] Jan, Pain in thoracic spine M54.6 and Other chronic pain G89.29 [place] [address] [address] 14 Jan, 2018 [place] [address] [address] Jan, Mild episode of recurrent ma saray depressive disorder F33.0 ; FRANCIS (generalized anxiety disorder) F41.1 and Restless leg syndrome G25.81 [facility] [address] [id number] [address] [place] [address] Dec, [facility] [address] [id number] [address] [place] [address] Dec, Hospital discharge follow-up Z09 [facility] [address] [id number] [address] [place] [address] Nov, [facility] [address] [id number] [address] [place] [address] Nov, [facility] [address] [id number] [address] [place] [address] September, [facility] [address] [id number] [address] [place] [address] September, [facility] [address] [id number] [address] [place] [address] September, Major depressive disorder in partial remission F32.4 ; FRANCIS (generalized anxiety disorder) F41.1 and Restless leg syndrome G25.81 [facility] [address] [id number] [address] [place] [address] September, [facility] [address] [id number] [address] [place] [address] Jul, [facility] [address] [id number] [address] [place] [address] Jul, Dorsalgia, unspecified M54.9 [facility] [address] [facility] [id number] [address] [place] [address] Jul, Mild episode of recurrent ma saray depressive disorder F33.0 and FRANCIS (generalized anxiety disorder) F41.1 [facility] [address] [id number] [address] [place] [address] May, [facility] [address] [id number] [address] [place] [address] May, Dysuria R30.0 and Acute cyst itis with hematuria N30.01 [facility] [address] [id number] [address] [place] [address] Apr, [facility] [address] [id number] [address] [place] [address] Apr, Major depressive disorder in partial remission F32.4 and FRANCIS (generalized anxiety disorder) F41.1 [facility] [address] [id number] [address] [place] [address] Mar, Paroxysmal tachycardia I47.9 [facility] [address] [id number] [address] [place] [address] Mar, Paroxysmal tachycardia I47.9 and Pain of left lower extremity M79.605 [facility] [address] [id number] [address] [place] [address] Mar, FRANCIS (generalized anxiety dis order) F41.1 and Major depressive disorder in partial remission F32.4 [facility] [address] [facility] [id number] [address] [place] [address] Jan, [facility] [address] [id number] [address] [place] [address] Jan, [facility] [address] [facility] [id number] [address] [place] [address] Jan, [facility] [address] [id number] [address] [place] [address] Dec, Constipation, unspecified co nstipation type K59.00 [facility] [address] [id number] [address] [place] [address] Dec, [facility] [address] [facility] [id number] [address] [place] [address] Nov, [facility] [address] [facility] [id number] [address] [place] [address] Nov, Major depressive disorder in partial remission F32.4 and FRANCIS (generalized anxiety disorder) F41.1 [facility] [address] [facility] [id number] [address] [place] [address] Oct, Abdominal pain R10.9 and Slo w transit constipation K59.01 [facility] [address] [facility] [id number] [address] [place] [address] Aug, Major depressive disorder in partial remission F32.4 ; FRANCIS (generalized anxiety disorder) F41.1 ; Conversion disorder (or hysterical neurosis, conversion type) F44.9 ; Dorsalgia, unspecified M54.9 and Long-term use of high-risk medication Z79.899 [facility] [address] [facility] [id number] [address] [place] [address] Aug, [place] [address] [place] [id number] [place] [address] Jul, Paroxysmal tachycardia I47.9 [facility] [address] [facility] [id number] [address] [place] [address] Jul, Paroxysmal tachycardia I47.9 [place] [address] [facility] [id number] [address] [place] [address] Jun, [facility] [address] [facility] [id number] [address] [place] [address] Jun, Major depressive disorder in partial remission F32.4 ; FRANCIS (generalized anxiety disorder) F41.1 and Conversion disorder (or hysterical neurosis, conversion type) F44.9 [facility] [address] [facility] [id number] [address] [place] [address] May, Pelvic pain R10.2 [facility] [address] [facility] [id number] [address] [place] [address] Apr, Gastroenteritis K52.9 [facility] [address] [facility] [id number] [address] [place] [address] Apr, Blood in urine R31.9 and Acu te cystitis with hematuria N30.01 [facility] [address] [id number] [address] [place] [address] Apr, Major depressive disorder in partial remission F32.4 ; FRANCIS (generalized anxiety disorder) F41.1 and Conversion disorder (or hysterical neurosis, conversion type) F44.9 [facility] [address] [id number] [address] [place] [address] Apr, [facility] [address] [id number] [address] [place] [address] Apr, Abnormal mammogram R92.8 [facility] [address] [id number] [address] [place] [address] Mar, [facility] [address] [id number] [address] [place] [address] Mar, Gastroenteritis K52.9 and Se izure disorder G40.909 [facility] [address] [id number] [address] [place] [address] Dec, [facility] [address] [id number] [address] [place] [address] Dec, Other headache syndrome G44. 89 [facility] [address] [id number] [address] [place] [address] Dec, [facility] [address] [id number] [address] [place] [address] Dec, Thoracic disc herniation M51 .24 [facility] [address] [id number] [address] [place] [address] Dec, [facility] [address] [facility] [id number] [address] [place] [address] Nov, Major depressive disorder in partial remission F32.4 and FRANCIS (generalized anxiety disorder) F41.1 [facility] [address] [facility] [id number] [address] [place] [address] Nov, [place] [address] [id number] [address] [place] [address] Nov, Dorsalgia, unspecified M54.9 [facility] [address] [id number] [address] [place] [address], [place] [address] Oct, [facility] [address] [id number] [address] [place] [address] September, [facility] [address] [id number] [address] [place] [address] Aug, [facility] [address] [id number] [address] [place] [address] Aug, Major depressive disorder in partial remission F32.4 and FRANCIS (generalized anxiety disorder) F41.1 [facility] [address] [id number] [address] [place] [address] Aug, [facility] [address] [id number] [address] [place] [address] Jul, Abnormal mammogram R92.8 [facility] [address] [id number] [address] [place] [address] Jul, [facility] [address] [id number] [address] [place] [address] Jul, [facility] [address] [id number] [address] [place] [address] Jul, [facility] [address] [id number] [address] [place] [address] Jul, [facility] [address] [id number] [address] [place] [address] Jul, [facility] [address] [id number] [address] [place] [address] Jul, [facility] [address] [id number] [address] [place] [id number] Jun, Major depressive disorder in partial remission F32.4 and FRANCIS (generalized anxiety disorder) F41.1 [facility] [address] [id number] [address] [place] [address] Jun, [facility] [address] [id number] [address] [place] [address] May, [facility] [address] [id number] [address] [place] [address] Apr, [facility] [address] [id number] [address] [place] [address] Mar, Major depressive disorder, r ecurrent episode, moderate F33.1 ; PTSD (post-traumatic stress disorder) F43.10 and FRANCIS (generalized anxiety disorder) F41.1 [facility] [address] [id number] [address] [place] [address] Mar, [facility] [address] [id number] [address] [place] [address] Mar, [facility] [address] [id number] [address] [place] [address] Mar, [facility] [address] [id number] [address] [place] [address] Mar, [facility] [address] [id number] [address] [place] [address] Jan, [facility] [address] [id number] [address] [place] [address] 15 Jan, 2015 [facility] [address] [id number] [address] [place] [address] 15 Jan, 2015 [facility] [address] [id number] [address] [place] [address] 14 Jan, 2015 Thoracic disc herniation 722 .11 [facility] [address] [id number] [address] [place] [address] Dec, [facility] [address] [id number] [address] [place] [address] Dec, [facility] [address] [id number] [address] [place] [address] Dec, [facility] [address] [id number] [address] [place] [address] Nov, [facility] [address] [id number] [address] [place] [address] Nov, Generalized anxiety disorder 300.02 ; Posttraumatic stress disorder 309.81 and Major depressive disorder, recurrent episode, moderate 296.32 [facility] [address] [id number] [address] [place] [address], [place] [address] Nov, [facility] [address] [id number] [address] [place] [address] Nov, [facility] [address] [id number] [address] [place] [address] Oct, [facility] [address] [id number] [address] [place] [address] Oct, [facility] [address] [id number] [address] [place] [address] Oct, [facility] [address] [id number] [address] [place] [address], [place] [address] September, [facility] [address] [id number] [address] [place] [address] September, [facility] [address] [id number] [address] [place] [address] Aug, [facility] [address] [id number] [address] [place] [address] Aug, [facility] [address] [id number] [address] [place] [address] Jul, [facility] [address] [id number] [address] [place] [address] Jul, [facility] [address] [id number] [address] [place] [address] Jul, [facility] [address] [id number] [address] [place] [address], [place] [address] 17 Jul, 2014 [facility] [address] [id number] [address] [place] [address], [place] [id number] 16 Jul, 2014 [facility] [address] [id number] [address] [place] [address], [place] [id number] 16 Jul, 2014 [facility] [address] [id number] [address] [place] [address], [place] [id number] Jul, [facility] [address] [id number] [address] [place] [address], [place] [id number] Jul, [facility] [address] [id number] [address] [place] [address], [place] [id number] Jul, [facility] [address] [id number] [address] [place] [address], [place] [id number] Jul, [facility] [address] [id number] [address] [place] [address], [place] [id number] Jun, [facility] [address] [id number] [address] [place] [address], [place] [id number] Jun, [facility] [address] [id number] [address] [place] [address], [place] [id number] 05 Jun, 2014 [facility] [address] [id number] [address] [place] [address], [place] [id number] May, [facility] [address] [id number] [address] [place] [address], [place] [id number] Apr, [facility] [address] [id number] [address] [place] [address], [place] [id number] Apr, [facility] [address] [id number] [address] [place] [address], [place] [id number] Apr, [facility] [address] [id number] [address] [place] [address], [place] [address] Apr, [facility] [address] [id number] [address] [place] [address], [place] [id number] 07 Apr, 2014 [facility] [address] [id number] [address] [place] [address], [place] [id number] 07 Apr, 2014 [facility] [address] [id number] [address] [place] [address], [place] [address] Apr, [facility] [address] [id number] [address] [place] [address], [place] [id number] Apr, [facility] [address] [id number] [address] [place] [address], [place] [id number] Mar, [facility] [address] [id number] [address] [place] [address], [place] [id number] 24 Mar, 2014 [facility] [address] [id number] [address] [place] [address], [place] [address] Mar, [facility] [address] [id number] [address] [place] [address], [place] [id number] Mar, [facility] [address] [id number] [address] [place] [address], [place] [id number] Mar, [facility] [address] [id number] [address] [place] [address], [place] [id number] Mar[facility] [facility] [address] [id number] [address] [place] [address], [place] [address] Mar, [facility] [address] [id number] [address] [place] [address], [place] [address] Mar, [facility] [address] [id number] [address] [place] [address], [place] [address] 23 Mar, 2014 [facility] [address] [id number] [address] [place] [address], [place] [address] Mar, [facility] [address] [id number] [address] [place] [address], [place] [address] 17 Mar, 2014 [facility] [address] [id number] [address] [place] [address], [place] [address] 14 Mar, 2014 [facility] [address] [id number] [address] [place] [address], [place] [address] 14 Mar, 2013 [facility] [address] [id number] [address] [place] [address], [place] [address] 07 Mar, 2013 [facility] [address] [id number] [address] [place] [address], [place] [id number] 07 Mar, 2013 [facility] [address] [id number] [address] [place] [address], [place] [id number] 06 Mar, 2013 [facility] [address] [id number] [address] [place] [address], [place] [id number] 06 Mar, 2013 [facility] [address] [id number] [address] [place] [address], [place] [id number] 19 Sep, 2013 [facility] [address] [id number] [address] [place] [address], [place] [id number] 19 Sep, 2013 [facility] [address] [id number] [address] [place] [address], [place] [address] 09 Sep, 2013 [facility] [address] [id number] [address] [place] [address], [place] [address] 09 Sep, 2013 [facility] [address] [id number] [address] [place] [address], [place] [address] 05 Sep, 2013 [facility] [address] [id number] [address] [place] [address], [place] [id number] 05 Sep, 2013 [facility] [address] [id number] [address] [place] [address], [place] [id number] 05 Sep, 2013 [facility] [address] [id number] [address] [place] [address], [place] [address] 05 Sep, 2013 [facility] [address] [id number] [address] [place] [address], [place] [address] 03 Sep, 2013 [facility] [address] [id number] [address] [place] [address], [place] [address] 02 Sep, 2013 [facility] [address] [id number] [address] [place] [address], [place] [address] Jan, [facility] [address] [id number] [address] [place] [address], [place] [address] Jan, [facility] [address] [id number] [address] [place] [address], [place] [address] Jan, [facility] [address] [id number] [address] [place] [address], [place] [address] Dec, [facility] [address] [id number] [address] [place] [address], [place] [address] Dec, [facility] [address] [id number] [address] [place] [address], [place] [address] Dec, [facility] [address] [id number] [address] [place] [address], [place] [address] Dec, [facility] [address] [id number] [address] [place] [address], [place] [address] Dec, [facility] [address] [id number] [address] [place] [address], [place] [address] Dec, [facility] [address] [place] [id number] Dec, [facility] [address] [place] [id number] Dec, [facility] [address] [id number] [address] [place] [id number] Dec, [facility] [address] [id number] [address] [place] [address], [place] [address] Dec, [facility] [address] [id number] [address] [place] [address], [place] [address] Dec, [facility] [address] [id number] [address] [place] [address], [place] [address] Dec, [facility] [address] [id number] [address] [place] [address], [place] [address] Nov, [facility] [address] [id number] [address] [place] [address], [place] [address] Nov, [facility] [address] [id number] [facility] [place] [address] Nov, [facility] [address] [id number] [facility] [place] [address] Nov, [facility] [address] [id number] [facility] [place] [address] Nov, [facility] [address] [id number] [facility] [place] [address] Nov, [facility] [address] [id number] [facility] [place] [address] Nov, [facility] [address] [id number] [address] [place] [address], [place] [address] Nov, [facility] [address] [id number] [address] [place] [address], [place] [address] Nov, [facility] [address] [id number] [address] [place] [address], [place] [address] Nov, [facility] [address] [id number] [address] [place] [address], [place] [address] Nov, [facility] [address] [id number] [address] [place] [address], [place] [address] Nov, [facility] [address] [id number] [address] [place] [address], [place] [address] Nov, [facility] [address] [id number] [address] [place] [address], [place] [address] Oct, [facility] [address] [id number] [address] [place] [address], [place] [address] Oct, [facility] [address] [id number] [address] [place] [address], [place] [address] Oct, [facility] [address] [id number] [address] [place] [address], [place] [address] Oct, [facility] [address] [id number] [facility] [place] [address] Oct, [facility] [address] [id number] [address] [place] [address], [place] [address] Oct, [facility] [address] [id number] [address] [place] [address], [place] [address] Oct, [facility] [address] [id number] [address] [place] [address], [place] [address] Oct, [facility] [address] [id number] [address] [place] [address], [place] [address] Oct, [facility] [address] [id number] [address] [place] [address], [place] [address] Oct, [facility] [address] [id number] [address] [place] [address], [place] [address] Oct, [facility] [address] [id number] [address] [place] [address], [place] [address] Oct, [facility] [address] [id number] [address] [place] [address], [place] [address] September, [facility] [address] [id number] [address] [place] [address], [place] [address] September, [facility] [address] [id number] [address] [place] [address], [place] [address] September, [facility] [address] [id number] [address] [place] [address], [place] [address] September, [facility] [address] [id number] [address] [place] [address], [place] [address] Aug, [facility] [address] [id number] [address] [place] [address], [place] [address] Aug, [facility] [address] [id number] [address] [place] [address], [place] [address] Aug, [facility] [address] [id number] [address] [place] [address], [place] [address] Aug, [facility] [address] [id number] [address] [place] [address], [place] [address] Aug, [facility] [address] [id number] [address] [place] [address], [place] [address] Aug, [facility] [address] [id number] [address] [place] [address], [place] [address] Aug, [facility] [address] [id number] [address] [place] [address], [place] [address] Jul, [facility] [address] [id number] [address] [place] [address], [place] [address] Jul, [facility] [address] [id number] [address] [place] [address], [place] [address] Jul, [facility] [address] [id number] [address] [place] [address], [place] [address] Jul, [facility] [address] [id number] [address] [place] [address], [place] [address] Jul, [facility] [address] [id number] [address] [place] [address], [place] [address] Jul, [facility] [address] [id number] [address] [place] [address], [place] [address] Jul, [facility] [address] [id number] [address] [place] [address], [place] [address] Jul, [facility] [address] [id number] [address] [place] [address], [place] [address] Jul, [facility] [address] [id number] [address] [place] [address], [place] [address] Jul, [facility] [address] [id number] [address] [place] [address], [place] [address] Jul, [facility] [address] [id number] [address] [place] [address], [place] [address] Jul, [facility] [address] [id number] [address] [place] [address], [place] [address] 14 Jul, 2013 [facility] [address] [id number] [address] [place] [address], [place] [address] 14 Jul, 2013 [facility] [address] [id number] [address] [place] [address], [place] [address] 11 Jul, 2013 [facility] [address] [id number] [address] [place] [address], [place] [address] 11 Jul, 2013 [facility] [address] [id number] [address] [place] [address], [place] [address] 11 Jul, 2013 [facility] [address] [id number] [address] [place] [address], [place] [address] Jul, [facility] [address] [id number] [address] [place] [address], [place] [address] Jun, [facility] [address] [id number] [address] [place] [address], [place] [address] 31 Jun, 2013 [facility] [address] [id number] [address] [place] [address], [place] [address] 15 Jun, 2013 [facility] [address] [id number] [address] [place] [address], [place] [address] 15 Jun, 2013 [facility] [address] [id number] [address] [place] [address], [place] [address] 14 Jun, 2013 [facility] [address] [id number] [address] [place] [address], [place] [address] 14 Jun, 2013 [facility] [address] [id number] [address] [place] [address], [place] [address] 14 Jun, 2013 [facility] [address] [id number] [address] [place] [address], [place] [address] 14 Jun, 2013 [facility] [address] [id number] [address] [place] [address], [place] [address] 14 Jun, 2013 [facility] [address] [id number] [address] [place] [address], [place] [address] 14 Jun, 2013 [facility] [address] [id number] [address] [place] [address], [place] [address] 27 May, 2013 [facility] [address] [id number] [address] [place] [address], [place] [address] 27 May, 2013 [facility] [address] [id number] [address] [place] [address], [place] [address] 26 May, 2013 [facility] [address] [id number] [address] [place] [address], [place] [id number] 19 May, 2013 [facility] [address] [id number] [address] [place] [address], [place] [address] 19 May, 2013 [facility] [address] [id number] [address] [place] [address], [place] [address] 16 May, 2013 [facility] [address] [id number] [address] [place] [address], [place] [address] 16 May, 2013 [facility] [address] [id number] [address] [place] [address], [place] [address] 16 May, 2013 [facility] [address] [id number] [address] [place] [address], [place] [address] 16 May, 2013 [facility] [address] [id number] [address] [place] [address], [place] [address] 13 May, 2013 [facility] [address] [id number] [address] [place] [address], [place] [address] 13 May, 2013 [facility] [address] [id number] [address] [place] [address], [place] [address] 11 May, 2013 [facility] [address] [id number] [address] [place] [address], [place] [address] 20 Apr, 2013 [facility] [address] [id number] [address] [place] [address], [place] [id number] 18 Apr, 2013 [facility] [address] [id number] [address] [place] [address], [place] [address] 18 Apr, 2013 [facility] [address] [id number] [address] [place] [address] Apr, [facility] [address] [id number] [address] [place] [address], [place] [address] Apr, [facility] [address] [id number] [address] [place] [address] 08 Apr, 2013 [facility] [address] [id number] [address] [place] [address] 08 Apr, 2013 [facility] [address] [id number] [address] [place] [address] Apr, [facility] [address] [id number] [address] [place] [address], [place] [address] Apr, [facility] [address] [id number] [address] [place] [address] Apr, [facility] [address] [id number] [address] [place] [address] Apr, [facility] [address] [id number] [address] [place] [address] Mar, [facility] [address] [id number] [address] [place] [address] Mar, [facility] [address] [id number] [address] [place] [address] Mar, [facility] [address] [id number] [address] [place] [id number] Mar, [facility] [address] [id number] [address] [place] [address] Mar, [facility] [address] [id number] [address] [place] [address] Mar, [facility] [address] [id number] [address] [place] [address] Mar, [facility] [address] [id number] [address] [place] [address] 18 Mar, 2013 [facility] [address] [id number] [address] [place] [address], [place] [address] 18 Mar, 2013 [facility] [address] [id number] [address] [place] [address], [place] [address] 15 Mar, 2013 [facility] [address] [id number] [address] [place] [address], [place] [address] 15 Mar, 2013 [facility] [address] [id number] [address] [place] [address], [place] [address] Mar, [facility] [address] [id number] [address] [place] [address], [place] [address] 30 Jan, 2013 [facility] [address] [id number] [address] [place] [address], [place] [address] 25 Jan, 2013 [facility] [address] [id number] [address] [place] [address], [place] [address] 20 Jan, 2013 [facility] [address] [id number] [address] [place] [address], [place] [address] Jan, [facility] [address] [id number] [address] [place] [address], [place] [address] Dec, [facility] [address] [id number] [address] [place] [address], [place] [address] Dec, [facility] [address] [id number] [address] [place] [address], [place] [address] Dec, [facility] [address] [id number] [address] [place] [address], [place] [address] Dec, [facility] [address] [id number] [address] [place] [address], [place] [address] Dec, [facility] [address] [id number] [address] [place] [address], [place] [address] Dec, [facility] [address] [id number] [address] [place] [address], [place] [address] Dec, [facility] [address] [id number] [address] [place] [address], [place] [address] Dec, [facility] [address] [id number] [address] [place] [address], [place] [address] Dec, [facility] [address] [id number] [address] [place] [address], [place] [address] Nov, [facility] [address] [id number] [address] [place] [address], [place] [address] Nov, [facility] [address] [id number] [address] [place] [address], [place] [address] Nov, [facility] [address] [id number] [address] [place] [address], [place] [address] Nov, [facility] [address] [id number] [address] [place] [address], [place] [address] Nov, [facility] [address] [id number] [address] [place] [address], [place] [address] Nov, [facility] [address] [id number] [address] [place] [address], [place] [address] Nov, [facility] [address] [id number] [address] [place] [address], [place] [address] Nov, [facility] [address] [id number] [address] [place] [address], [place] [address] Oct, [facility] [address] [id number] [address] [place] [address], [place] [address] Oct, [facility] [address] [id number] [address] [place] [address], [place] [address] Oct, [facility] [address] [id number] [address] [place] [address], [place] [id number] Oct, [facility] [address] [id number] [address] [place] [address], [place] [address] Oct, [facility] [address] [id number] [address] [place] [address], [place] [id number] Oct, [facility] [address] [id number] [address] [place] [address], [place] [id number] 20 Oct, 2012 [facility] [address] [id number] [address] [place] [address], [place] [id number] 20 Oct, 2012 [facility] [address] [id number] [address] [place] [address], [place] [id number] 19 Oct, 2012 [facility] [address] [id number] [address] [place] [address], [place] [address] 18 Oct, 2012 [facility] [address] [id number] [address] [place] [address], [place] [id number] 17 Oct, 2012 [facility] [address] [id number] [address] [place] [address], [place] [id number] 14 Oct, 2012 [facility] [address] [id number] [address] [place] [address], [place] [id number] 07 Oct, 2012 [facility] [address] [id number] [address] [place] [address], [place] [id number] 30 Sep, 2012 [facility] [address] [id number] [address] [place] [address], [place] [address] September, [facility] [address] [id number] [address] [place] [address], [place] [id number] 15 Sep, 2012 [facility] [address] [id number] [address] [place] [address], [place] [id number] 25 Aug, 2012 [facility] [address] [id number] [address] [place] [address], [place] [id number] 24 Aug, 2012 [facility] [address] [id number] [address] [place] [address], [place] [address] 18 Aug, 2012 [facility] [address] [id number] [address] [place] [address], [place] [id number] 18 Aug, 2012 [facility] [address] [id number] [address] [place] [address], [place] [id number] 18 Aug, 2012 [facility] [address] [id number] [address] [place] [address], [place] [id number] 08 Aug, 2012 [facility] [address] [id number] [address] [place] [address], [place] [address] Aug, [facility] [address] [id number] [address] [place] [address], [place] [address] Jul, [facility] [address] [id number] [address] [place] [address], [place] [id number] Jul, [facility] [address] [id number] [address] [place] [address], [place] [address] Jul, [facility] [address] [id number] [address] [place] [address], [place] [address] Jul, [facility] [address] [id number] [address] [place] [address], [place] [id number] Jul, [facility] [address] [id number] [address] [place] [address], [place] [id number] Jul, [facility] [address] [id number] [address] [place] [address], [place] [address] Jul, [facility] [address] [id number] [address] [place] [address], [place] [address] Jul, [facility] [address] [id number] [address] [place] [address], [place] [address] Jul, [facility] [address] [id number] [address] [place] [address], [place] [address] Jul, [facility] [address] [id number] [address] [place] [address], [place] [address] Jul, [facility] [address] [id number] [address] [place] [address], [place] [id number] Jul, [facility] [address] [id number] [address] [place] [address], [place] [address] Jul, [facility] [address] [id number] [address] [place] [address], [place] [address] Jun, [facility] [address] [id number] [address] [place] [address], [place] [id number] 21 Jun, 2012 [facility] [address] [id number] [address] [place] [address], [place] [id number] 19 Jun, 2012 [facility] [address] [id number] [address] [place] [address], [place] [id number] 17 Jun, 2012 [facility] [address] [id number] [address] [place] [address], [place] [address] 15 Jun, 2012 [facility] [address] [id number] [address] [place] [address], [place] [id number] 14 Jun, 2012 [facility] [address] [id number] [address] [place] [address], [place] [address] 08 Jun, 2012 [facility] [address] [id number] [address] [place] [address], [place] [id number] 28 May, 2012 [facility] [address] [id number] [address] [place] [address], [place] [id number] 28 May, 2012 [facility] [address] [id number] [address] [place] [address], [place] [id number] May, [facility] [address] [id number] [address] [place] [address], [place] [address] May, [facility] [address] [id number] [address] [place] [address], [place] [address] May, [facility] [address] [id number] [address] [place] [address], [place] [id number] 24 May, 2012 [facility] [address] [id number] [address] [place] [address], [place] [address] May, [facility] [address] [id number] [address] [place] [address], [place] [address] May, [facility] [address] [id number] [address] [place] [address], [place] [id number] May, [facility] [address] [id number] [address] [place] [address], [place] [address] May, [facility] [address] [id number] [address] [place] [address], [place] [address] Apr, [facility] [address] [id number] [address] [place] [address], [place] [address] Apr, [facility] [address] [id number] [address] [place] [address], [place] [address] Apr, [facility] [address] [id number] [address] [place] [address], [place] [address] Apr, [facility] [address] [id number] [address] [place] [address], [place] [address] Apr, [facility] [address] [id number] [address] [place] [address], [place] [address] Apr, [facility] [address] [id number] [address] [place] [address], [place] [address] Apr, [facility] [address] [id number] [address] [place] [address], [place] [address] Apr, [facility] [address] [id number] [address] [place] [address], [place] [address] Apr, [facility] [address] [id number] [address] [place] [address], [place] [address] Apr, [facility] [address] [id number] [address] [place] [address], [place] [address] Apr, [facility] [address] [id number] [address] [place] [address], [place] [address] Apr, [facility] [address] [id number] [address] [place] [address], [place] [id number] Mar, [facility] [address] [id number] [address] [place] [address], [place] [address] Mar, [facility] [address] [id number] [address] [place] [address], [place] [address] Mar, [facility] [address] [id number] [address] [place] [address], [place] [address] Mar, 2011 [facility] [address] [id number] [address] [place] [address], [place] [id number] 30 Mar, 2011 [facility] [address] [id number] [address] [place] [address], [place] [id number] 30 Mar, 2011 [facility] [address] [id number] [address] [place] [address], [place] [address] Mar, 2011 [facility] [address] [id number] [address] [place] [address], [place] [address] Mar, 2011 [facility] [address] [id number] [address] [place] [address], [place] [address] Mar, [facility] [address] [id number] [address] [place] [id number] Mar, 2011 [facility] [address] [id number] [address] [place] [address], [place] [address] Mar, [facility] [address] [id number] [address] [place] [id number] Mar, [facility] [address] [id number] [address] [place] [address], [place] [address] Mar, [facility] [address] [id number] [address] [place] [id number] Mar, [facility] [address] [id number] [address] [place] [id number] Mar, [facility] [address] [id number] [address] [place] [id number] Mar, [facility] [address] [id number] [address] [place] [address], [place] [address] 25 Jan, 2012 [facility] [address] [id number] [address] [place] [id number] 24 Jan, 2012 [facility] [address] [id number] [address] [place] [id number] 22 Jan, 2012 [facility] [address] [id number] [address] [place] [address], [place] [address] 22 Jan, 2012 [facility] [address] [id number] [address] [place] [address], [place] [id number] 21 Jan, 2012 [facility] [address] [id number] [address] [place] [address], [place] [id number] 18 Jan, 2012 [facility] [address] [id number] [address] [place] [address], [place] [id number] 14 Jan, 2012 [facility] [address] [id number] [address] [place] [address], [place] [id number] 07 Jan, 2012 [facility] [address] [id number] [address] [place] [address], [place] [id number] 15 Dec, 2011 [facility] [address] [id number] [address] [place] [address], [place] [address] 10 Dec, 2011 [facility] [address] [id number] [address] [place] [address], [place] [address] Dec, [facility] [address] [id number] [address] [place] [address], [place] [address] Dec, [facility] [address] [id number] [address] [place] [address], [place] [address] Dec, [facility] [address] [id number] [address] [place] [address], [place] [address] Dec, [facility] [address] [id number] [address] [place] [address], [place] [address] Dec, [facility] [address] [id number] [address] [place] [address], [place] [address] Nov, [facility] [address] [id number] [address] [place] [address], [place] [address] Oct, [facility] [address] [id number] [address] [place] [address], [place] [address] Aug, [facility] [address] [id number] [address] [place] [address], [place] [id number] Jul, [facility] [address] [id number] [address] [place] [address], [place] [address] 19 Jul, 2011 [facility] [address] [id number] [address] [place] [address], [place] [address] 16 Jul, 2011 [facility] [address] [id number] [address] [place] [address], [place] [id number] 14 Jul, 2011 [facility] [address] [id number] [address] [place] [address], [place] [id number] 07 Jul, 2011 [facility] [address] [id number] [address] [place] [address], [place] [address] 02 Jul, 2011 [facility] [address] [id number] [address] [place] [address], [place] [id number] 21 Jul, 2011 [facility] [address] [id number] [address] [place] [address], [place] [address] 15 Jul, 2011 [facility] [address] [id number] [address] [place] [address], [place] [address] 13 Jul, 2011 [facility] [address] [id number] [address] [place] [address], [place] [id number] 03 Jul, 2011 [facility] [address] [id number] [address] [place] [address], [place] [id number] 02 Jul, 2011 [facility] [address] [id number] [address] [place] [address], [place] [address] 24 Jun, 2011 [facility] [address] [id number] [address] [place] [address], [place] [id number] 24 Jun, 2011 [facility] [address] [id number] [address] [place] [address], [place] [address] 13 Jun, 2011 [facility] [address] [id number] [address] [place] [address], [place] [id number] 11 Jun, 2011 [facility] [address] [id number] [address] [place] [address], [place] [id number] 06 Jun, 2011 [facility] [address] [id number] [address] [place] [address], [place] [id number] 05 Jun, 2011 [facility] [address] [id number] [address] [place] [address], [place] [address] Jun, [facility] [address] [id number] [address] [place] [address], [place] [address] May, [facility] [address] [id number] [address] [place] [address], [place] [address] May, [facility] [address] [id number] [address] [place] [address], [place] [address] May, [facility] [address] [id number] [address] [place] [address], [place] [address] May, [facility] [address] [id number] [address] [place] [address], [place] [address] May, [facility] [address] [id number] [address] [place] [address], [place] [address] May, [facility] [address] [id number] [address] [place] [address], [place] [address] May, [facility] [address] [id number] [address] [place] [address], [place] [address] May, [facility] [address] [id number] [address] [place] [address], [place] [address] May, [facility] [address] [id number] [address] [place] [address], [place] [address] May, [facility] [address] [id number] [address] [place] [address], [place] [address] Apr, [facility] [address] [id number] [address] [place] [address], [place] [id number] Apr, [facility] [address] [id number] [address] [place] [address], [place] [address] Apr, [facility] [address] [id number] [address] [place] [address], [place] [address] Apr, [facility] [address] [facility] [id number] [address] [place] [id number] Mar, [facility] [address] [facility] [id number] [address] [place] [id number] Mar, [facility] [address] [facility] [id number] [address] [place] [id number] Mar, [facility] [address] [facility] [id number] [address] [place] [id number] Mar, IMMUNIZATIONS No Known Immunizations SOCIAL HISTORY [...]
--- OUTSIDE RECORDS SUMMARY | 2020-01-03 17:58 | XMS REPORT ---
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 Name Role Phone REYNALDO VIEIRA Unavailable PROBLEMS Type Condition ICD9-CM Code [id number] Code Onset Dates Condition S tatus SNOMED Code Problem FRANCIS (generalized anxiety disorder) F41.1 Active 81840500 Problem Thoracic disc herniation M51.24 Activ e 604791159 Problem Major depressive disorder in partial remission F32 .4 Active 28091332 Problem Seizure disorder G40.909 Active 128 426161 Problem Conversion disorder (or hysterical neurosis, conversion ty pe) F44.9 Active 23372308 Problem Constipation, unspecified constipation type K59.00 Active 84426610 Problem Mild episode of recurrent major depressive disorder F33.0 Active 029871489 Problem Restless leg syndrome G25.81 Active 24546562 Problem Nonadherence to medication Z91.14 Act vivian 010614805 Problem Slow transit constipation K59.01 Acti ve 16730238 Problem Atrophic vaginitis N95.2 Active 5 3997140 Problem Paroxysmal tachycardia I47.9 Active 69206814 Problem Other chronic pain G89.29 Active 8 0046230 Problem Mild intermittent asthma without complication J45. 20 Active 632442826 Problem Obesity (BMI 30.0-34.9) E66.9 Active [id number] Problem High blood pressure I10 Active 36716110 ALLERGIES No Information ENCOUNTERS Encounter Location Date Diagnosis [place] [id number] [id number] [place] [id number] 26 Oct, 2019 Breast cancer screening Z12.[address] [id number] [place] [address] 08 Oct, 2019 Breast cancer screening Z12. 39 [facility] [address] [place] [address] [id number] [address] [place] [address] 05 Oct, 2019 [facility] [place] [address] [id number] [address] [place] [phone] Oct, [facility] [place] [address] [id number] [address] [place] [phone] September, [facility] [place] [address] [id number] [address] [place] [phone] September, [facility] [place] [address] [id number] [address] [place] [phone] September, Well woman exam with routine gynecological exam Z01.419 and Atrophic vaginitis N95.2 [facility] [place] [address] [id number] [address] [place] [phone] September, Major depressive disorder in partial remission F32.4 ; FRANCIS (generalized anxiety disorder) F41.1 ; Restless leg syndrome G25.81 and Nonadherence to medication Z91.14 [facility] [place] [address] [facility] [id number] [address] [place] [phone] September, [facility] [place] [address] [id number] [address] [place] [phone] Aug, [facility] [address] [id number] Aug, Dental examination Z01.20 [facility] [id number] [place] [id number] Aug, Dental examination Z01.20 an d Caries K02.9 [facility] [address] [id number] [address] [place] [phone] Aug, [facility] [address] [id number] [address] [place] [phone] Aug, [facility] [address] [facility] [id number] [address] [place] [phone] Aug, Other chronic pain G89.29 an d Back muscle spasm M62.830 [facility] [place] [address] [id number] [address] [place] [id number] Aug, [facility] [place] [address] [id number] [address] [place] [phone] Aug, Major depressive disorder in partial remission F32.4 ; FRANCIS (generalized anxiety disorder) F41.1 ; Restless leg syndrome G25.81 and Nonadherence to medication Z91.14 [facility] [place] [address] [id number] [address] [place] [id number] Aug, [facility] [place] [address] [id number] [address] [place] [id number] Jul, [facility] [place] [address] [id number] [address] [place] [phone] Jul, [facility] [place] [address] [id number] [address] [place] [id number] Jul, Major depressive disorder in partial remission F32.4 ; FRANCIS (generalized anxiety disorder) F41.1 ; Restless leg syndrome G25.81 and High blood pressure I10 [facility] [place] [address] [id number] [address] [place] [phone] Jul, [facility] [place] [address] [id number] [address] [place] [phone] Jul, [facility] [place] [address] [id number] [address] [place] [phone] Jun, [facility] [place] [address] [id number] [address] [place] [phone] May, [facility] [place] [address] [id number] [address] [place] [phone] Apr, [facility] [place] [address] [id number] [address] [place] [phone] Apr, [facility] [place] [address] [id number] [address] [place] [phone] Mar, [facility] [place] [address] [id number] [address] [place] [id number] Mar, Major depressive disorder in partial remission F32.4 ; FRANCIS (generalized anxiety disorder) F41.1 and Restless leg syndrome G25.81 [facility] [place] [address] [id number] [address] [place] [id number] Mar, Obesity (BMI 30.0-34.9) E66. 9 [facility] [place] [address] [id number] [address] [place] [phone] Jan, [facility] [address] [id number] [address] [place] [phone] Jan, Burn T30.0 [facility] [place] [address] [id number] [address] [place] [phone] Dec, [facility] [place] [address] [id number] [address] [place] [phone] Nov, [facility] [place] [address] [id number] [address] [place] [phone] Nov, [facility] [id number] [place] [address] [id number] Nov, Dental examination Z01.20 [facility] [place] [address] [id number] [address] [place] [phone] September, [facility] [address] [id number] [place] [address] [id number] September, Decay, teeth K02.9 and Denta l examination Z01.20 [facility] [address] [id number] [place] [id number] September, Dental examination Z01.20 [facility] [place] [address] [id number] [address] [place] [phone] September, FRANCIS (generalized anxiety dis order) F41.1 ; Major depressive disorder in partial remission F32.4 and Restless leg syndrome G25.81 [facility] [place] [address] [id number] [address] [place] [id number] Aug, [facility] [place] [address] [id number] Jul, [place] [address] [phone] Jul, Encounter to discuss test re sults Z71.2 [place] [address] [place] [id number] [place] [phone] Jul, Pelvic pain R10.2 ; Screenin g for breast cancer Z12.31 and Obesity (BMI 30.0-34.9) E66.9 [place] [address] [phone] Jul, Mild intermittent asthma wit hout complication J45.20 [place] [address] [phone] Jul, Major depressive disorder in partial remission F32.4 and FRANCIS (generalized anxiety disorder) F41.1 [place] [address] [phone] Jul, [place] [address] [phone] Jun, [place] [address] [id number] May, Major depressive disorder in partial remission F32.4 ; FRANCIS (generalized anxiety disorder) F41.1 and Restless leg syndrome G25.81 [place] [address] [phone] Apr, [place] [address] [id number] Mar, [facility] [address] [place] [id number] [place] [phone] 21 Jan, 2018 Pain in thoracic spine M54.6 and Other chronic pain G89.29 [place] [address] [phone] Jan, [facility] [place] [address] [id number] [address] [place] [phone] Jan, Mild episode of recurrent ma saray depressive disorder F33.0 ; FRANCIS (generalized anxiety disorder) F41.1 and Restless leg syndrome G25.81 [facility] [place] [address] [id number] [address] [place] [phone] Dec, [facility] [place] [address] [id number] [address] [place] [phone] Dec, Hospital discharge follow-up Z09 [facility] [place] [address] [id number] [address] [place] [address], [place] [address] Nov, [facility] [place] [address] [id number] [address] [place] [id number] Nov, [facility] [place] [address] [id number] [address] [place] [phone] September, [facility] [place] [address] [id number] [address] [place] [phone] September, [facility] [place] [address] [id number] [address] [place] [phone] September, Major depressive disorder in partial remission F32.4 ; FRANCIS (generalized anxiety disorder) F41.1 and Restless leg syndrome G25.81 [facility] [place] [address] [id number] [address] [place] [phone] September, [facility] [place] [address] [id number] [address] [place] [phone] Jul, [facility] [place] [address] [id number] [address] [place] [phone] Jul, Dorsalgia, unspecified M54.9 [facility] [place] [address] [id number] [address] [place] [phone] Jul, Mild episode of recurrent ma saray depressive disorder F33.0 and FRANCIS (generalized anxiety disorder) F41.1 [facility] [place] [address] [facility] [id number] [address] [place] [phone] May, [facility] [address] [facility] [id number] [address] [place] [phone] May, Dysuria R30.0 and Acute cyst itis with hematuria N30.01 [facility] [place] [address] [facility] [id number] [address] [place] [phone] Apr, [facility] [place] [address] [facility] [id number] [address] [place] [phone] Apr, Major depressive disorder in partial remission F32.4 and FRANCIS (generalized anxiety disorder) F41.1 [place] [address] [place] [id number] [place] [phone] Mar, Paroxysmal tachycardia I47.9 [place] [address] [place] [id number] [address] [place] [id number] Mar, Paroxysmal tachycardia I47.9 and Pain of left lower extremity M79.605 [facility] [place] [address] [place] [id number] [address] [place] [phone] Mar, FRANCIS (generalized anxiety dis order) F41.1 and Major depressive disorder in partial remission F32.4 [facility] [place] [address] [place] [id number] [address] [place] [id number] Jan, [facility] [place] [address] [facility] [id number] [address] [place] [phone] 14 Jan, 2017 [facility] [place] [address] [place] [id number] [address] [place] [phone] Jan, [facility] [address] [facility] [id number] [address] [place] [phone] Dec, Constipation, unspecified co nstipation type K59.00 [facility] [place] [address] [facility] [id number] [address] [place] [phone] Dec, [facility] [place] [address] [place] [id number] [address] [place] [phone] Nov, [facility] [place] [address] [place] [id number] [address] [place] [id number] Nov, Major depressive disorder in partial remission F32.4 and FRANCIS (generalized anxiety disorder) F41.1 [facility] [address] [facility] [id number] [address] [place] [phone] Oct, Abdominal pain R10.9 and Slo w transit constipation K59.01 [facility] [place] [address] [facility] [id number] [address] [place] [phone] Aug, Major depressive disorder in partial remission F32.4 ; FRANCIS (generalized anxiety disorder) F41.1 ; Conversion disorder (or hysterical neurosis, conversion type) F44.9 ; Dorsalgia, unspecified M54.9 and Long-term use of high-risk medication Z79.899 [place] [address] [place] [id number] [address] [place] [id number] Aug, [facility] [place] [address] [place] [id number] [address] [place] [phone] Jul, Paroxysmal tachycardia I47.9 [place] [address] [place] [id number] [place] [phone] Jul, Paroxysmal tachycardia I47.9 [place] [address] [facility] [id number] [address] [place] [phone] Jun, [facility] [place] [address] [place] [id number] [address] [place] [phone] Jun, Major depressive disorder in partial remission F32.4 ; FRANCIS (generalized anxiety disorder) F41.1 and Conversion disorder (or hysterical neurosis, conversion type) F44.9 [facility] [address] [facility] [id number] [address] [place] [phone] May, Pelvic pain R10.2 [facility] [address] [facility] [id number] [address] [place] [id number] Apr, Gastroenteritis K52.9 [facility] [address] [place] [id number] [address] [place] [id number] 17 Apr, 2016 Blood in urine R31.9 [address] cystitis with hematuria N30.01 [facility] [address] [id number] [address] [place] [phone] Apr, Major depressive disorder in partial remission F32.4 ; FRANCIS (generalized anxiety disorder) F41.1 and Conversion disorder (or hysterical neurosis, conversion type) F44.9 [facility] [place] [address] [id number] [address] [place] [id number] Apr, [facility] [address] [id number] [address] [place] [phone] Apr, Abnormal mammogram R92.8 [facility] [address] [facility] [id number] [address] [place] [phone] Mar, [facility] [place] [address] [facility] [id number] [address] [place] [phone] Mar, Gastroenteritis K52.9 and Se izure disorder G40.909 [facility] [place] [address] [id number] [address] [place] [phone] Dec, [facility] [address] [id number] [address] [place] [phone] Dec, Other headache syndrome G44. 89 [facility] [place] [address] [id number] [address] [place] [phone] Dec, [facility] [place] [address] [facility] [id number] [address] [place] [phone] Dec, Thoracic disc herniation M51 .24 [facility] [place] [address] [id number] [address] [place] [phone] Dec, [facility] [place] [address] [facility] [id number] [address] [place] [phone] Nov, Major depressive disorder in partial remission F32.4 and FRANCIS (generalized anxiety disorder) F41.1 [facility] [address] [id number] [address] [place] [phone] 13 Nov, 2015 [facility] [address] [id number] [address] [place] [phone] Nov, Dorsalgia, unspecified M54.9 [facility] [place] [address] [id number] [address] [place] [phone] Oct, [facility] [address] [id number] [address] [place] [phone] September, [facility] [address] [id number] [address] [place] [id number] Aug, [facility] [address] [id number] [address] [place] [id number] Aug, Major depressive disorder in partial remission F32.4 and FRANCIS (generalized anxiety disorder) F41.1 [facility] [address] [id number] [address] [place] [id number] Aug, [facility] [address] [id number] [address] [place] [phone] Jul, Abnormal mammogram R92.8 [facility] [address] [id number] [address] [place] [phone] Jul, [facility] [address] [id number] [address] [place] [id number] Jul, [facility] [address] [id number] [address] [place] [id number] Jul, [facility] [address] [id number] [address] [place] [phone] Jul, [facility] [place] [address] [id number] [address] [place] [phone] Jul, [facility] [place] [address] [id number] [address] [place] [id number] Jul, [facility] [place] [address] [id number] [address] [place] [id number] Jun, Major depressive disorder in partial remission F32.4 and FRANCIS (generalized anxiety disorder) F41.1 [facility] [place] [address] [id number] [address] [place] [id number] Jun, [facility] [place] [address] [id number] [address] [place] [id number] May, [facility] [place] [address] [id number] [address] [place] [id number] Apr, [facility] [place] [address] [id number] [address] [place] [id number] Mar, Major depressive disorder, r ecurrent episode, moderate F33.1 ; PTSD (post-traumatic stress disorder) F43.10 and FRANCIS (generalized anxiety disorder) F41.1 [facility] [place] [address] [id number] [address] [place] [id number] Mar, [facility] [place] [address] [id number] [address] [place] [id number] Mar, [facility] [place] [address] [id number] [address] [place] [id number] Mar, [facility] [place] [address] [id number] [address] [place] [phone] Mar, [facility] [place] [address] [id number] [address] [place] [id number] Jan, [facility] [place] [address] [id number] [address] [place] [id number] 15 Jan, 2015 [facility] [place] [address] [id number] [address] [place] [id number] 15 Jan, 2015 [facility] [place] [address] [id number] [address] [place] [id number] 14 Jan, 2015 Thoracic disc herniation 722 .11 [facility] [place] [address] [id number] [address] [place] [id number] Dec, [facility] [place] [address] [id number] [address] [place] [address] Dec, [facility] [address] [id number] [address] [place] [address] Dec, [facility] [address] [id number] [address] [place] [address] Nov, [facility] [address] [id number] [address] [place] [address] Nov, Generalized anxiety disorder 300.02 ; Posttraumatic stress disorder 309.81 and Major depressive disorder, recurrent episode, moderate 296.32 [facility] [address] [id number] [address] [place] [address] Nov, [facility] [address] [id number] [address] [place] [address] Nov, [facility] [address] [id number] [address] [place] [address] Oct, [facility] [address] [id number] [address] [place] [address] Oct, [facility] [address] [id number] [address] [place] [address] Oct, [facility] [address] [id number] [address] [place] [address] September, [facility] [address] [id number] [address] [place] [address] September, [facility] [address] [id number] [address] [place] [address] Aug, [facility] [address] [id number] [address] [place] [address] Aug, [facility] [address] [id number] [address] [place] [address] Jul, [facility] [address] [id number] [address] [place] [address] Jul, [facility] [address] [id number] [address] [place] [address], [place] [address] 17 Jul, 2014 [facility] [address] [id number] [address] [place] [address], [place] [address] 17 Jul, 2014 [facility] [address] [id number] [address] [place] [address], [place] [address] 16 Jul, 2014 [facility] [address] [id number] [address] [place] [address], [place] [address] 16 Jul, 2014 [facility] [address] [id number] [address] [place] [address], [place] [address] 19 Jul, 2014 [facility] [address] [id number] [address] [place] [address], [place] [address] Jul, [facility] [address] [id number] [address] [place] [address], [place] [address] Jul, [facility] [address] [id number] [address] [place] [address], [place] [address] Jul, [facility] [address] [id number] [address] [place] [address], [place] [address] Jun, [facility] [address] [id number] [address] [place] [address], [place] [address] Jun, [facility] [address] [id number] [address] [place] [address], [place] [address] Jun, [facility] [address] [id number] [address] [place] [address], [place] [address] May, [facility] [address] [id number] [address] [place] [address], [place] [address] Apr, [facility] [address] [id number] [address] [place] [address], [place] [address] Apr, [facility] [address] [id number] [address] [place] [address], [place] [address] Apr, [facility] [address] [id number] [address] [place] [address], [place] [address] Apr, [facility] [address] [id number] [address] [place] [address], [place] [address] Apr, [facility] [address] [id number] [address] [place] [address], [place] [address] Apr, [facility] [address] [id number] [address] [place] [address], [place] [address] Apr, [facility] [address] [id number] [address] [place] [address], [place] [address] Apr, [facility] [address] [id number] [address] [place] [address], [place] [address] Mar, [facility] [address] [id number] [address] [place] [address], [place] [address] Mar, [facility] [address] [id number] [address] [place] [address], [place] [address] Mar, [facility] [address] [id number] [address] [place] [address], [place] [address] Mar, [facility] [address] [id number] [address] [place] [address], [place] [address] Mar, [facility] [address] [id number] [address] [place] [address], [place] [address] Mar, [facility] [address] [id number] [address] [place] [address] Mar, [facility] [address] [id number] [address] [place] [address] Mar, [facility] [address] [id number] [address] [place] [address], [place] [address] Mar, [facility] [address] [id number] [address] [place] [address], [place] [address] Mar, [facility] [address] [id number] [address] [place] [address], [place] [address] Mar, [facility] [address] [id number] [address] [place] [address], [place] [address] 14 Mar, 2013 [facility] [address] [id number] [address] [place] [address], [place] [address] 14 Mar, 2013 [facility] [address] [id number] [address] [place] [address], [place] [address] 07 Mar, 2013 [facility] [address] [id number] [address] [place] [address], [place] [address] 07 Mar, 2013 [facility] [address] [id number] [address] [place] [address], [place] [address] 06 Mar, 2013 [facility] [address] [id number] [address] [place] [address], [place] [address] 06 Mar, 2013 [facility] [address] [id number] [address] [place] [address], [place] [address] 19 Sep, 2013 [facility] [address] [id number] [address] [place] [address], [place] [address] 19 Sep, 2013 [facility] [address] [id number] [address] [place] [address], [place] [address] 09 Sep, 2013 [facility] [address] [id number] [address] [place] [address], [place] [address] 09 Sep, 2013 [facility] [address] [id number] [address] [place] [address], [place] [address] 05 Sep, 2013 [facility] [address] [id number] [address] [place] [address], [place] [address] 05 Sep, 2013 [facility] [address] [id number] [address] [place] [address], [place] [address] 05 Sep, 2013 [facility] [address] [id number] [address] [place] [address], [place] [address] 05 Sep, 2013 [facility] [address] [id number] [address] [place] [address], [place] [address] 03 Sep, 2013 [facility] [address] [id number] [address] [place] [address], [place] [address] Jan, [facility] [address] [id number] [address] [place] [address], [place] [address] Jan, [facility] [address] [id number] [address] [place] [address], [place] [address] Jan, [facility] [address] [id number] [address] [place] [address], [place] [address] Jan, [facility] [address] [id number] [address] [place] [address], [place] [address] Dec, [facility] [address] [id number] [address] [place] [address], [place] [address] Dec, [facility] [address] [id number] [address] [place] [address], [place] [address] Dec, [facility] [address] [id number] [address] [place] [address], [place] [address] Dec, [facility] [address] [id number] [address] [place] [address], [place] [address] Dec, [facility] [address] [id number] [address] [place] [address], [place] [address] Dec, [facility] [address] [place] [id number] Dec, [facility] [address] [place] [id number] Dec, [facility] [address] [id number] [address] [place] [address], [place] [address] Dec, [facility] [address] [id number] [address] [place] [address], [place] [address] Dec, [facility] [address] [id number] [address] [place] [address], [place] [address] Dec, [facility] [address] [id number] [address] [place] [address], [place] [address] Dec, [facility] [address] [id number] [address] [place] [address], [place] [address] Nov, [facility] [address] [id number] [facility] [place] [address] Nov, [facility] [address] [id number] [facility] [place] [address] Nov, [facility] [address] [id number] [facility] [place] [address] Nov, [facility] [address] [id number] [facility] [place] [address] Nov, [facility] [address] [id number] [facility] [place] [address] Nov, [facility] [address] [id number] [address] [place] [address], [place] [address] Nov, [facility] [address] [id number] [address] [place] [address], [place] [address] Nov, [facility] [address] [id number] [address] [place] [address], [place] [address] Nov, [facility] [address] [id number] [address] [place] [address], [place] [address] Nov, [facility] [address] [id number] [address] [place] [address], [place] [address] Nov, [facility] [address] [id number] [address] [place] [address], [place] [address] Nov, [facility] [address] [id number] [address] [place] [address], [place] [address] Nov, [facility] [address] [id number] [address] [place] [address], [place] [address] Oct, [facility] [address] [id number] [address] [place] [address], [place] [address] Oct, [facility] [address] [id number] [address] [place] [address], [place] [address] Oct, [facility] [address] [id number] [address] [place] [address], [place] [address] Oct, [facility] [address] [id number] [facility] [place] [address] Oct, [facility] [address] [id number] [address] [place] [address], [place] [address] Oct, [facility] [address] [id number] [address] [place] [address], [place] [address] Oct, [facility] [address] [id number] [address] [place] [address], [place] [address] Oct, [facility] [address] [id number] [address] [place] [address], [place] [address] Oct, [facility] [address] [id number] [address] [place] [address], [place] [address] Oct, [facility] [address] [id number] [address] [place] [address], [place] [address] Oct, [facility] [address] [id number] [address] [place] [address], [place] [address] Oct, [facility] [address] [id number] [address] [place] [address], [place] [address] September, [facility] [address] [id number] [address] [place] [address], [place] [address] September, [facility] [address] [id number] [address] [place] [address], [place] [address] September, [facility] [address] [id number] [address] [place] [address], [place] [address] September, [facility] [address] [id number] [address] [place] [address], [place] [address] Aug, [facility] [address] [id number] [address] [place] [address], [place] [address] Aug, [facility] [address] [id number] [address] [place] [address], [place] [address] Aug, [facility] [address] [id number] [address] [place] [address], [place] [address] 22 Aug, 2013 [facility] [address] [id number] [address] [place] [address], [place] [address] 18 Aug, 2013 [facility] [address] [id number] [address] [place] [address], [place] [address] 10 Aug, 2013 [facility] [address] [id number] [address] [place] [address], [place] [address] 10 Aug, 2013 [facility] [address] [id number] [address] [place] [address], [place] [address] 28 Jul, 2013 [facility] [address] [id number] [address] [place] [address], [place] [address] 28 Jul, 2013 [facility] [address] [id number] [address] [place] [address], [place] [address] Jul, [facility] [address] [id number] [address] [place] [address], [place] [address] Jul, [facility] [address] [id number] [address] [place] [address], [place] [address] 19 Jul, 2013 [facility] [address] [id number] [address] [place] [address], [place] [address] 19 Jul, 2013 [facility] [address] [id number] [address] [place] [address], [place] [address] 18 Jul, 2013 [facility] [address] [id number] [address] [place] [address], [place] [address] 18 Jul, 2013 [facility] [address] [id number] [address] [place] [address], [place] [address] 18 Jul, 2013 [facility] [address] [id number] [address] [place] [address], [place] [address] 18 Jul, 2013 [facility] [address] [id number] [address] [place] [address], [place] [address] 18 Jul, 2013 [facility] [address] [id number] [address] [place] [address], [place] [address] Jul, [facility] [address] [id number] [facility] [place] [address] 14 Jul, 2013 [facility] [address] [id number] [address] [place] [address], [place] [address] 14 Jul, 2013 [facility] [address] [id number] [address] [place] [address], [place] [address] Jul, [facility] [address] [id number] [address] [place] [address], [place] [address] Jul, [facility] [address] [id number] [address] [place] [address], [place] [address] Jul, [facility] [address] [id number] [address] [place] [address], [place] [address] Jul, [facility] [address] [id number] [address] [place] [address], [place] [address] Jun, [facility] [address] [id number] [address] [place] [address], [place] [address] 31 Jun, 2013 [facility] [address] [id number] [address] [place] [address], [place] [address] 15 Jun, 2013 [facility] [address] [id number] [address] [place] [address], [place] [address] 15 Jun, 2013 [facility] [address] [id number] [address] [place] [address], [place] [address] 14 Jun, 2013 [facility] [address] [id number] [address] [place] [address], [place] [address] 14 Jun, 2013 [facility] [address] [id number] [address] [place] [address], [place] [address] 14 Jun, 2013 [facility] [address] [id number] [address] [place] [address], [place] [address] 14 Jun, 2013 [facility] [address] [id number] [address] [place] [address], [place] [address] 14 Jun, 2013 [facility] [address] [id number] [address] [place] [address], [place] [address] 14 Jun, 2013 [facility] [address] [id number] [address] [place] [address], [place] [address] 27 May, 2013 [facility] [address] [id number] [address] [place] [address], [place] [address] 27 May, 2013 [facility] [address] [id number] [address] [place] [address], [place] [address] 26 May, 2013 [facility] [address] [id number] [address] [place] [address], [place] [address] 19 May, 2013 [facility] [address] [id number] [address] [place] [address], [place] [address] 19 May, 2013 [facility] [address] [id number] [address] [place] [address], [place] [address] 16 May, 2013 [facility] [address] [id number] [address] [place] [address], [place] [address] 16 May, 2013 [facility] [address] [id number] [address] [place] [address], [place] [address] 16 May, 2013 [facility] [address] [id number] [address] [place] [address], [place] [address] 16 May, 2013 [facility] [address] [id number] [address] [place] [address], [place] [address] 13 May, 2013 [facility] [address] [id number] [address] [place] [address], [place] [address] 13 May, 2013 [facility] [address] [id number] [address] [place] [address], [place] [address] 11 May, 2013 [facility] [address] [id number] [address] [place] [address], [place] [address] 20 Apr, 2013 [facility] [address] [id number] [address] [place] [address], [place] [address] 18 Apr, 2013 [facility] [address] [id number] [address] [place] [address], [place] [address] Apr, [facility] [address] [id number] [address] [place] [address], [place] [address] Apr, [facility] [address] [id number] [address] [place] [address], [place] [address] Apr, [facility] [address] [id number] [address] [place] [address], [place] [address] 08 Apr, 2013 [facility] [address] [id number] [address] [place] [address], [place] [address] Apr, [facility] [address] [id number] [address] [place] [address], [place] [address] Apr, [facility] [address] [id number] [address] [place] [address], [place] [address] Apr, [facility] [address] [id number] [address] [place] [address], [place] [address] Apr, [facility] [address] [id number] [address] [place] [id number] Apr, [facility] [address] [id number] [address] [place] [address], [place] [address] Mar, [facility] [address] [id number] [address] [place] [id number] Mar, [facility] [address] [id number] [address] [place] [id number] Mar, [facility] [address] [id number] [address] [place] [address] Mar, [facility] [address] [id number] [address] [place] [id number] Mar, [facility] [address] [id number] [address] [place] [id number] Mar, [facility] [address] [id number] [address] [place] [phone] Mar, [facility] [address] [id number] [address] [place] [id number] 18 Mar, 2013 [facility] [address] [id number] [address] [place] [address], [place] [address] 18 Mar, 2013 [facility] [address] [id number] [address] [place] [address], [place] [address] 15 Mar, 2013 [facility] [address] [id number] [address] [place] [address], [place] [address] 15 Mar, 2013 [facility] [address] [id number] [address] [place] [address], [place] [address] Mar, [facility] [address] [id number] [address] [place] [address], [place] [address] 30 Jan, 2013 [facility] [address] [id number] [address] [place] [address], [place] [address] 25 Jan, 2013 [facility] [address] [id number] [address] [place] [address], [place] [address] Jan, [facility] [address] [id number] [address] [place] [address], [place] [address] Jan, [facility] [address] [id number] [address] [place] [address], [place] [address] Dec, [facility] [address] [id number] [address] [place] [address], [place] [address] Dec, [facility] [address] [id number] [address] [place] [address], [place] [address] Dec, [facility] [address] [id number] [address] [place] [address], [place] [address] Dec, [facility] [address] [id number] [address] [place] [address], [place] [address] Dec, [facility] [address] [id number] [address] [place] [address], [place] [address] Dec, [facility] [address] [id number] [address] [place] [address], [place] [address] Dec, [facility] [address] [id number] [facility] [place] [address] Dec, [facility] [address] [id number] [address] [place] [address], [place] [address] Dec, [facility] [address] [id number] [address] [place] [address], [place] [address] Nov, [facility] [address] [id number] [address] [place] [address], [place] [address] Nov, [facility] [address] [id number] [address] [place] [address], [place] [address] Nov, [facility] [address] [id number] [address] [place] [address], [place] [address] Nov, [facility] [address] [id number] [address] [place] [address], [place] [address] Nov, [facility] [address] [id number] [address] [place] [address], [place] [address] Nov, [facility] [address] [id number] [address] [place] [address], [place] [address] Nov, [facility] [address] [id number] [address] [place] [address], [place] [address] Nov, [facility] [address] [id number] [address] [place] [address], [place] [address] Oct, [facility] [address] [id number] [address] [place] [address], [place] [address] Oct, [facility] [address] [id number] [address] [place] [address], [place] [address] Oct, [facility] [address] [id number] [address] [place] [address], [place] [address] Oct, [facility] [address] [id number] [address] [place] [address], [place] [address] Oct, [facility] [address] [id number] [address] [place] [address], [place] [address] Oct, [facility] [address] [id number] [address] [place] [address], [place] [address] Oct, [facility] [address] [id number] [address] [place] [address], [place] [address] 20 Oct, 2012 [facility] [address] [id number] [address] [place] [address], [place] [address] 19 Oct, 2012 [facility] [address] [id number] [address] [place] [address], [place] [address] 18 Oct, 2012 [facility] [facility] [address] [id number] [address] [place] [address], [place] [address] 17 Oct, 2012 [facility] [address] [id number] [address] [place] [address], [place] [address] 14 Oct, 2012 [facility] [address] [id number] [address] [place] [address], [place] [address] 07 Oct, 2012 [facility] [address] [id number] [address] [place] [address], [place] [address] 30 Sep, 2012 [facility] [address] [id number] [address] [place] [address], [place] [address] September, [facility] [address] [id number] [address] [place] [address], [place] [address] 15 Sep, 2012 [facility] [address] [id number] [address] [place] [address], [place] [address] 25 Aug, 2012 [facility] [address] [id number] [address] [place] [address], [place] [address] 24 Aug, 2012 [facility] [address] [id number] [address] [place] [address], [place] [address] 18 Aug, 2012 [facility] [address] [id number] [address] [place] [address], [place] [address] 18 Aug, 2012 [facility] [address] [id number] [address] [place] [address], [place] [address] 18 Aug, 2012 [facility] [address] [id number] [address] [place] [address], [place] [address] 08 Aug, 2012 [facility] [address] [id number] [address] [place] [address], [place] [address] Aug, [facility] [address] [id number] [address] [place] [address], [place] [address] Jul, [facility] [address] [id number] [address] [place] [address], [place] [address] Jul, [facility] [address] [id number] [address] [place] [address], [place] [address] Jul, [facility] [address] [id number] [address] [place] [address], [place] [address] Jul, [facility] [address] [id number] [address] [place] [address], [place] [address] Jul, [facility] [address] [id number] [address] [place] [address], [place] [address] Jul, [facility] [address] [id number] [address] [place] [address], [place] [address] Jul, [facility] [address] [id number] [address] [place] [address], [place] [address] Jul, [facility] [address] [id number] [address] [place] [address], [place] [address] Jul, [facility] [address] [id number] [address] [place] [address], [place] [address] Jul, [facility] [address] [id number] [address] [place] [address], [place] [address] Jul, [facility] [address] [id number] [address] [place] [address], [place] [address] Jul, [facility] [address] [id number] [address] [place] [address], [place] [address] Jul, [facility] [address] [id number] [address] [place] [address], [place] [address] 24 Jun, 2012 [facility] [address] [id number] [address] [place] [address], [place] [address] Jun, [facility] [address] [id number] [address] [place] [address], [place] [address] 19 Jun, 2012 [facility] [address] [id number] [address] [place] [address], [place] [address] 17 Jun, 2012 [facility] [address] [id number] [address] [place] [address], [place] [address] 15 Jun, 2012 [facility] [address] [id number] [address] [place] [address], [place] [address] 14 Jun, 2012 [facility] [address] [id number] [address] [place] [address], [place] [address] 08 Jun, 2012 [facility] [address] [id number] [address] [place] [address], [place] [address] May, [facility] [address] [id number] [address] [place] [address], [place] [address] May, [facility] [address] [id number] [address] [place] [address], [place] [address] May, [facility] [address] [id number] [address] [place] [address], [place] [address] May, [facility] [address] [id number] [address] [place] [address], [place] [address] May, [facility] [address] [id number] [address] [place] [address], [place] [address] May, [facility] [address] [id number] [address] [place] [address], [place] [address] May, [facility] [address] [id number] [address] [place] [address], [place] [address] May, [facility] [address] [id number] [address] [place] [address], [place] [address] May, [facility] [address] [id number] [address] [place] [address], [place] [address] May, [facility] [address] [id number] [address] [place] [address], [place] [address] Apr, [facility] [address] [id number] [address] [place] [address], [place] [address] Apr, [facility] [address] [id number] [address] [place] [address], [place] [address] Apr, [facility] [address] [id number] [address] [place] [address], [place] [address] Apr, [facility] [address] [id number] [address] [place] [address], [place] [address] Apr, [facility] [address] [id number] [address] [place] [address], [place] [address] Apr, [facility] [address] [id number] [address] [place] [address], [place] [address] Apr, [facility] [address] [id number] [address] [place] [address], [place] [address] Apr, [facility] [address] [id number] [address] [place] [address], [place] [address] Apr, [facility] [address] [id number] [address] [place] [address], [place] [address] Apr, [facility] [address] [id number] [address] [place] [address], [place] [address] Apr, [facility] [address] [id number] [address] [place] [address], [place] [address] Apr, [facility] [address] [id number] [address] [place] [address], [place] [address] Mar, [facility] [address] [id number] [address] [place] [address], [place] [address] Mar, [facility] [address] [id number] [address] [place] [address], [place] [address] Mar, [facility] [address] [id number] [address] [place] [address], [place] [address] Mar, 2011 [facility] [address] [id number] [address] [place] [address], [place] [address] Mar, 2011 [facility] [address] [id number] [address] [place] [address], [place] [address] Mar, 2011 [facility] [address] [id number] [address] [place] [address], [place] [address] Mar, [facility] [address] [id number] [address] [place] [address], [place] [address] Mar, [facility] [address] [id number] [address] [place] [address], [place] [address] Mar, [facility] [address] [id number] [address] [place] [address], [place] [address] Mar, [facility] [address] [id number] [address] [place] [address], [place] [address] Mar, [facility] [address] [id number] [address] [place] [address], [place] [address] Mar, [facility] [address] [id number] [address] [place] [address] Mar, [facility] [address] [id number] [address] [place] [address] Mar, [facility] [address] [id number] [address] [place] [address] Mar, [facility] [address] [id number] [address] [place] [address], [place] [address] Mar, [facility] [address] [id number] [address] [place] [address], [place] [address] Jan, [facility] [address] [id number] [address] [place] [address] 24 Jan, 2012 [facility] [address] [id number] [address] [place] [address] 22 Jan, 2012 [facility] [address] [id number] [address] [place] [address], [place] [address] 22 Jan, 2012 [facility] [address] [id number] [address] [place] [address], [place] [address] 21 Jan, 2012 [facility] [address] [id number] [address] [place] [address], [place] [address] 18 Jan, 2012 [facility] [address] [id number] [address] [place] [address], [place] [address] 14 Jan, 2012 [facility] [address] [id number] [address] [place] [address], [place] [address] 07 Jan, 2012 [facility] [address] [id number] [address] [place] [address], [place] [address] 15 Dec, 2011 [facility] [address] [id number] [address] [place] [address], [place] [address] Dec, [facility] [address] [id number] [address] [place] [address], [place] [address] Dec, [facility] [address] [id number] [address] [place] [address], [place] [address] Dec, [facility] [address] [id number] [address] [place] [address], [place] [address] Dec, [facility] [address] [id number] [address] [place] [address], [place] [address] Dec, [facility] [address] [id number] [address] [place] [address], [place] [address] Dec, [facility] [address] [id number] [address] [place] [address], [place] [address] Nov, [facility] [address] [id number] [address] [place] [address], [place] [address] Oct, [facility] [address] [id number] [address] [place] [address], [place] [address] Aug, [facility] [address] [id number] [address] [place] [address], [place] [address] 22 Jul, 2011 [facility] [address] [id number] [address] [place] [address], [place] [address] 19 Jul, 2011 [facility] [address] [id number] [address] [place] [address], [place] [address] 16 Jul, 2011 [facility] [address] [id number] [address] [place] [address], [place] [address] 14 Jul, 2011 [facility] [address] [id number] [address] [place] [address], [place] [address] 07 Jul, 2011 [facility] [address] [id number] [address] [place] [address], [place] [address] 02 Jul, 2011 [facility] [address] [id number] [address] [place] [address], [place] [address] 21 Jul, 2011 [facility] [address] [id number] [address] [place] [address], [place] [address] 15 Jul, 2011 [facility] [address] [id number] [address] [place] [address], [place] [address] 13 Jul, 2011 [facility] [address] [id number] [address] [place] [address], [place] [address] 03 Jul, 2011 [facility] [address] [id number] [address] [place] [address], [place] [address] 02 Jul, 2011 [facility] [address] [id number] [address] [place] [address], [place] [address] 24 Jun, 2011 [facility] [address] [id number] [address] [place] [address], [place] [address] 24 Jun, 2011 [facility] [address] [id number] [address] [place] [address], [place] [address] 13 Jun, 2011 [facility] [address] [id number] [address] [place] [address], [place] [address] 11 Jun, 2011 [facility] [address] [id number] [address] [place] [address], [place] [address] Jun, [facility] [address] [id number] [address] [place] [address], [place] [address] Jun, [facility] [address] [id number] [address] [place] [address], [place] [address] Jun, [facility] [address] [id number] [address] [place] [address], [place] [address] May, [facility] [address] [id number] [address] [place] [address], [place] [address] May, [facility] [address] [id number] [address] [place] [address], [place] [address] May, [facility] [address] [id number] [address] [place] [address], [place] [address] May, [facility] [address] [id number] [address] [place] [address], [place] [address] May, [facility] [address] [id number] [address] [place] [address], [place] [address] May, [facility] [address] [id number] [address] [place] [address], [place] [address] May, [facility] [address] [id number] [address] [place] [address], [place] [address] May, [facility] [address] [id number] [address] [place] [address], [place] [address] May, [facility] [address] [id number] [address] [place] [address], [place] [address] May, [facility] [address] [id number] [address] [place] [address], [place] [address] Apr, [facility] [address] [id number] [address] [place] [address], [place] [address] Apr, [facility] [address] [id number] [address] [place] [address], [place] [address] Apr, [facility] [address] [id number] [address] [place] [address] Apr, [facility] [place] [address] [facility] [id number] [address] [place] [address] Mar, [facility] [place] [address] [facility] [id number] [address] [place] [address] Mar, [facility] [place] [address] [facility] [id number] [address] [place] [address] Mar, [facility] [place] [address] [facility] [id number] [address] [place] [address] Mar, IMMUNIZATIONS No Known Immunizations SOCIAL HISTORY Never Assessed REASON FOR VISIT PLAN OF CARE VITAL SIGNS Height 61 in 2012-11-15 Weight 16.5 lbs 2012-11-15 Temperature 98 degrees Fahrenheit 2012-11-15 Heart Rate 100 bpm 2012-11-15 Respiratory Rate 18 2012-11-15 Blood pressure systolic 114 mmHg 2012-11-15 Blood pressure diastolic 74 mmHg 2012-11-15 MEDICATIONS Unknown Medications RESULTS No Results PROCEDURES [...] History ER for seizures 03/24/16 Hospitalization History [facility] for kidney stones/hypertension 0 12/2017
--- OUTSIDE RECORDS SUMMARY | 2020-01-03 17:59 | XMS REPORT ---
Author Author Pattie Moffett Doctor Organization [facility] Address Unknown Phone Unavailable Care Team Providers Care Dental Mold Maker Name Role Phone Migration, Doctor Unavailable Unavailable PROBLEMS Type Condition ICD9-CM Code JJZ94-DQ Code Onset Dates Condition S tatus SNOMED Code Problem FRANCIS (generalized anxiety disorder) F41.1 Active 56000833 Problem Thoracic disc herniation M51.24 Activ e 381503083 Problem Major depressive disorder in partial remission F32 .4 Active 43526028 Problem Seizure disorder G40.909 Active 128 980254 Problem Conversion disorder (or hysterical neurosis, conversion ty pe) F44.9 Active 64989014 Problem Constipation, unspecified constipation type K59.00 Active 07403502 Problem Mild episode of recurrent major depressive disorder F33.0 Active 559234559 Problem Restless leg syndrome G25.81 Active 28935083 Problem Nonadherence to medication Z91.14 Act vivian 078357044 Problem Slow transit constipation K59.01 Acti ve 02361453 Problem Atrophic vaginitis N95.2 Active 5 5107106 Problem Paroxysmal tachycardia I47.9 Active 48669541 Problem Other chronic pain G89.29 Active 8 3666555 Problem Mild intermittent asthma without complication J45. 20 Active 379614531 Problem Obesity (BMI 30.0-34.9) E66.9 Active [id number] Problem High blood pressure I10 Active 22903896 ALLERGIES No Information ENCOUNTERS Encounter Location Date Diagnosis [place] [id number] [id number] [id number] 26 Oct, 2019 Breast cancer screening Z12.[address] [id number] [address] 08 Oct, 2019 Breast cancer screening Z12. 39 [facility] [address] [facility] [id number] [address] [place] [id number] 05 Oct, 2019 [facility] [address] [facility] [id number] [address] [place] [phone] Oct, [facility] [address] [id number] [address] [place] [address] September, [facility] [address] [id number] [address] [place] [address] September, [facility] [address] [id number] [address] [place] [address] September, Well woman exam with routine gynecological exam Z01.419 and Atrophic vaginitis N95.2 [facility] [address] [id number] [address] [place] [address] September, Major depressive disorder in partial remission F32.4 ; FRANCIS (generalized anxiety disorder) F41.1 ; Restless leg syndrome G25.81 and Nonadherence to medication Z91.14 [facility] [address] [id number] [address] [place] [address] September, [facility] [address] [id number] [address] [place] [address] Aug, [facility] [address] [id number] [address] [place] [id number] Aug, Dental examination Z01.20 [facility] [address] [id number] [address] [place] [id number] 15 Aug, 2019 Dental examination Z01.20 an d Caries K02.9 [facility] [address] [id number] [address] [place] [address] Aug, [facility] [address] [id number] [address] [place] [address] Aug, [facility] [address] [id number] [address] [place] [address] Aug, Other chronic pain G89.29 an d Back muscle spasm M62.830 [facility] [address] [id number] [address] [place] [phone] Aug, [facility] [address] [id number] [address] [place] [id number] Aug, Major depressive disorder in partial remission F32.4 ; FRANCIS (generalized anxiety disorder) F41.1 ; Restless leg syndrome G25.81 and Nonadherence to medication Z91.14 [facility] [address] [id number] [address] [place] [phone] Aug, [facility] [address] [id number] [address] [place] [address] Jul, [facility] [address] [id number] [address] [place] [address] Jul, [facility] [address] [id number] [address] [place] [address] Jul, Major depressive disorder in partial remission F32.4 ; FRANCIS (generalized anxiety disorder) F41.1 ; Restless leg syndrome G25.81 and High blood pressure I10 [facility] [address] [id number] [address] [place] [phone] Jul, [facility] [address] [id number] [address] [place] [address] Jul, [facility] [address] [id number] [address] [place] [phone] Jun, [facility] [address] [id number] [address] [place] [phone] May, [facility] [address] [id number] [address] [place] [address] Apr, [facility] [address] [id number] [address] [place] [address] Apr, [facility] [address] [id number] [address] [place] [address] Mar, [facility] [address] [id number] [address] [place] [address] Mar, Major depressive disorder in partial remission F32.4 ; FRANCIS (generalized anxiety disorder) F41.1 and Restless leg syndrome G25.81 [facility] [address] [id number] [address] [place] [address] Mar, Obesity (BMI 30.0-34.9) E66. 9 [facility] [address] [id number] [address] [place] [address] Jan, [facility] [address] [id number] [address] [place] [id number] 14 Jan, 2019 Burn T30.0 [facility] [address] [id number] [address] [place] [phone] Dec, [facility] [address] [id number] [address] [place] [phone] Nov, [facility] [address] [id number] [address] [place] [phone] Nov, [facility] [id number] [place] [id number] Nov, Dental examination Z01.20 [facility] [address] [id number] [address] [place] [phone] September, [facility] [address] [place] [id number] [place] [id number] September, Decay, teeth K02.9 and Denta l examination Z01.20 [facility] [id number] [place] [id number] September, Dental examination Z01.20 [facility] [address] [facility] [id number] [address] [place] [address] September, FRANCIS (generalized anxiety dis order) F41.1 ; Major depressive disorder in partial remission F32.4 and Restless leg syndrome G25.81 [facility] [address] [id number] [address] [place] [address] Aug, [facility] [address] [id number] [address] [place] [address] Jul, [place] [address] [address] Jul, Encounter to discuss test re sults Z71.2 [place] [address] [address] Jul, Pelvic pain R10.2 ; Screenin g for breast cancer Z12.31 and Obesity (BMI 30.0-34.9) E66.9 [place] [address] [address] Jul, Mild intermittent asthma wit hout complication J45.20 [place] [address] [address] Jul, Major depressive disorder in partial remission F32.4 and FRANCIS (generalized anxiety disorder) F41.1 [place] [address] [address] Jul, [place] [address] [address] Jun, [place] [address] [address] May, Major depressive disorder in partial remission F32.4 ; FRANCIS (generalized anxiety disorder) F41.1 and Restless leg syndrome G25.81 [place] [address] [address] Apr, [place] [address] [address] Mar, [facility] [address] [address] Jan, Pain in thoracic spine M54.6 and Other chronic pain G89.29 [place] [address] [address] 14 Jan, 2018 [place] [address] [address] Jan, Mild episode of recurrent ma saray depressive disorder F33.0 ; FRANCIS (generalized anxiety disorder) F41.1 and Restless leg syndrome G25.81 [facility] [address] [id number] [address] [place] [phone] Dec, [facility] [address] [id number] [address] [place] [phone] Dec, Hospital discharge follow-up Z09 [facility] [address] [id number] [address] [place] [phone] Nov, [facility] [address] [id number] [address] [place] [phone] Nov, [facility] [address] [id number] [address] [place] [phone] September, [facility] [address] [id number] [address] [place] [address] September, [facility] [address] [id number] [address] [place] [address] September, Major depressive disorder in partial remission F32.4 ; FRANCIS (generalized anxiety disorder) F41.1 and Restless leg syndrome G25.81 [facility] [address] [id number] [address] [place] [phone] September, [facility] [address] [id number] [address] [place] [id number] Jul, [facility] [address] [id number] [address] [place] [phone] Jul, Dorsalgia, unspecified M54.9 [facility] [address] [facility] [id number] [address] [place] [phone] Jul, Mild episode of recurrent ma saray depressive disorder F33.0 and FRANCIS (generalized anxiety disorder) F41.1 [facility] [address] [id number] [address] [place] [phone] May, [facility] [address] [id number] [address] [place] [address] May, Dysuria R30.0 and Acute cyst itis with hematuria N30.01 [facility] [address] [id number] [address] [place] [address] Apr, [facility] [address] [id number] [address] [place] [id number] Apr, Major depressive disorder in partial remission F32.4 and FRANCIS (generalized anxiety disorder) F41.1 [facility] [address] [id number] [address] [place] [phone] Mar, Paroxysmal tachycardia I47.9 [facility] [address] [id number] [address] [place] [address] Mar, Paroxysmal tachycardia I47.9 and Pain of left lower extremity M79.605 [facility] [address] [id number] [address] [place] [phone] Mar, FRANCIS (generalized anxiety dis order) F41.1 and Major depressive disorder in partial remission F32.4 [facility] [address] [facility] [id number] [address] [place] [phone] Jan, [facility] [address] [id number] [address] [place] [phone] Jan, [facility] [address] [facility] [id number] [address] [place] [address] Jan, [facility] [address] [id number] [address] [place] [address] Dec, Constipation, unspecified co nstipation type K59.00 [facility] [address] [id number] [address] [place] [address] Dec, [facility] [address] [facility] [id number] [address] [place] [phone] Nov, [facility] [address] [facility] [id number] [address] [place] [phone] Nov, Major depressive disorder in partial remission F32.4 and FRANCIS (generalized anxiety disorder) F41.1 [facility] [address] [facility] [id number] [address] [place] [address] Oct, Abdominal pain R10.9 and Slo w transit constipation K59.01 [facility] [address] [facility] [id number] [address] [place] [phone] Aug, Major depressive disorder in partial remission F32.4 ; FRANCIS (generalized anxiety disorder) F41.1 ; Conversion disorder (or hysterical neurosis, conversion type) F44.9 ; Dorsalgia, unspecified M54.9 and Long-term use of high-risk medication Z79.899 [facility] [address] [facility] [id number] [address] [place] [address] Aug, [place] [address] [place] [id number] [place] [phone] Jul, Paroxysmal tachycardia I47.9 [facility] [address] [facility] [id number] [address] [place] [phone] Jul, Paroxysmal tachycardia I47.9 [place] [address] [facility] [id number] [address] [place] [phone] Jun, [facility] [address] [facility] [id number] [address] [place] [phone] Jun, Major depressive disorder in partial remission F32.4 ; FRANCIS (generalized anxiety disorder) F41.1 and Conversion disorder (or hysterical neurosis, conversion type) F44.9 [facility] [address] [facility] [id number] [address] [place] [address] May, Pelvic pain R10.2 [facility] [address] [facility] [id number] [address] [place] [address] Apr, Gastroenteritis K52.9 [facility] [address] [facility] [id number] [address] [place] [address] Apr, Blood in urine R31.9 and Acu te cystitis with hematuria N30.01 [facility] [address] [id number] [address] [place] [address] Apr, Major depressive disorder in partial remission F32.4 ; FRANCIS (generalized anxiety disorder) F41.1 and Conversion disorder (or hysterical neurosis, conversion type) F44.9 [facility] [address] [id number] [address] [place] [address] Apr, [facility] [address] [id number] [address] [place] [address] Apr, Abnormal mammogram R92.8 [facility] [address] [id number] [address] [place] [address] Mar, [facility] [address] [id number] [address] [place] [address] Mar, Gastroenteritis K52.9 and Se izure disorder G40.909 [facility] [address] [id number] [address] [place] [phone] Dec, [facility] [address] [id number] [address] [place] [phone] Dec, Other headache syndrome G44. 89 [facility] [address] [id number] [address] [place] [phone] Dec, [facility] [address] [id number] [address] [place] [address] Dec, Thoracic disc herniation M51 .24 [facility] [address] [id number] [address] [place] [id number] Dec, [facility] [address] [facility] [id number] [address] [place] [address] Nov, Major depressive disorder in partial remission F32.4 and FRANCIS (generalized anxiety disorder) F41.1 [facility] [address] [facility] [id number] [address] [place] [address] Nov, [place] [address] [id number] [address] [place] [address] Nov, Dorsalgia, unspecified M54.9 [facility] [address] [id number] [address] [place] [address], [place] [address] Oct, [facility] [address] [id number] [address] [place] [phone] September, [facility] [address] [id number] [address] [place] [address] Aug, [facility] [address] [id number] [address] [place] [address] Aug, Major depressive disorder in partial remission F32.4 and FRANCIS (generalized anxiety disorder) F41.1 [facility] [address] [id number] [address] [place] [address] Aug, [facility] [address] [id number] [address] [place] [phone] Jul, Abnormal mammogram R92.8 [facility] [address] [id number] [address] [place] [address] Jul, [facility] [address] [id number] [address] [place] [phone] Jul, [facility] [address] [id number] [address] [place] [phone] Jul, [facility] [address] [id number] [address] [place] [address] Jul, [facility] [address] [id number] [address] [place] [address] Jul, [facility] [address] [id number] [address] [place] [phone] Jul, [facility] [address] [id number] [address] [place] [phone] Jun, Major depressive disorder in partial remission F32.4 and FRANCIS (generalized anxiety disorder) F41.1 [facility] [address] [id number] [address] [place] [id number] Jun, [facility] [address] [id number] [address] [place] [phone] May, [facility] [address] [id number] [address] [place] [phone] Apr, [facility] [address] [id number] [address] [place] [address] Mar, Major depressive disorder, r ecurrent episode, moderate F33.1 ; PTSD (post-traumatic stress disorder) F43.10 and FRANCIS (generalized anxiety disorder) F41.1 [facility] [address] [id number] [address] [place] [id number] Mar, [facility] [address] [id number] [address] [place] [id number] Mar, [facility] [address] [id number] [address] [place] [id number] Mar, [facility] [address] [id number] [address] [place] [id number] Mar, [facility] [address] [id number] [address] [place] [id number] Jan, [facility] [address] [id number] [address] [place] [id number] 15 Jan, 2015 [facility] [address] [id number] [address] [place] [id number] 15 Jan, 2015 [facility] [address] [id number] [address] [place] [id number] 14 Jan, 2015 Thoracic disc herniation 722 .11 [facility] [address] [id number] [address] [place] [id number] Dec, [facility] [facility] [address] [id number] [address] [place] [address] Dec, [facility] [address] [id number] [address] [place] [address] Dec, [facility] [address] [id number] [address] [place] [address] Nov, [facility] [address] [id number] [address] [place] [address] Nov, Generalized anxiety disorder 300.02 ; Posttraumatic stress disorder 309.81 and Major depressive disorder, recurrent episode, moderate 296.32 [facility] [address] [id number] [address] [place] [address], [place] [address] Nov, [facility] [address] [id number] [address] [place] [address] Nov, [facility] [address] [id number] [address] [place] [address] Oct, [facility] [address] [id number] [address] [place] [address] Oct, [facility] [address] [id number] [address] [place] [address] Oct, [facility] [address] [id number] [address] [place] [address], [place] [address] September, [facility] [address] [id number] [address] [place] [address] September, [facility] [address] [id number] [address] [place] [address] Aug, [facility] [address] [id number] [address] [place] [address] Aug, [facility] [address] [id number] [address] [place] [address] Jul, [facility] [address] [id number] [address] [place] [address] Jul, [facility] [address] [id number] [address] [place] [address] Jul, [facility] [address] [id number] [address] [place] [address], [place] [address] 17 Jul, 2014 [facility] [address] [id number] [address] [place] [address], [place] [address] 16 Jul, 2014 [facility] [address] [id number] [address] [place] [address], [place] [address] 16 Jul, 2014 [facility] [address] [id number] [address] [place] [address], [place] [address] Jul, [facility] [address] [id number] [address] [place] [address], [place] [address] Jul, [facility] [address] [id number] [address] [place] [address], [place] [address] Jul, [facility] [address] [id number] [address] [place] [address], [place] [address] Jul, [facility] [address] [id number] [address] [place] [address], [place] [address] Jun, [facility] [address] [id number] [address] [place] [address], [place] [address] Jun, [facility] [address] [id number] [address] [place] [address], [place] [address] 05 Jun, 2014 [facility] [address] [id number] [address] [place] [address], [place] [address] May, [facility] [address] [id number] [address] [place] [address], [place] [address] Apr, [facility] [address] [id number] [address] [place] [address], [place] [address] Apr, [facility] [address] [id number] [address] [place] [address], [place] [address] Apr, [facility] [address] [id number] [address] [place] [address], [place] [address] Apr, [facility] [address] [id number] [address] [place] [address], [place] [address] 07 Apr, 2014 [facility] [address] [id number] [address] [place] [address], [place] [address] 07 Apr, 2014 [facility] [address] [id number] [address] [place] [address], [place] [address] Apr, [facility] [address] [id number] [address] [place] [address], [place] [address] Apr, [facility] [address] [id number] [address] [place] [address], [place] [address] Mar, [facility] [address] [id number] [address] [place] [address], [place] [address] 24 Mar, 2014 [facility] [address] [id number] [address] [place] [address], [place] [address] Mar, [facility] [address] [id number] [address] [place] [address], [place] [address] Mar, [facility] [address] [id number] [address] [place] [address], [place] [address] Mar, [facility] [address] [id number] [address] [place] [address], [place] [address] Mar, [facility] [address] [id number] [address] [place] [address], [place] [address] Mar, [facility] [address] [id number] [address] [place] [address], [place] [address] Mar, [facility] [address] [id number] [address] [place] [address], [place] [address] 23 Mar, 2014 [facility] [address] [id number] [address] [place] [address], [place] [address] Mar, [facility] [address] [id number] [address] [place] [address], [place] [address] 17 Mar, 2014 [facility] [address] [id number] [address] [place] [address], [place] [address] 14 Mar, 2014 [facility] [address] [id number] [address] [place] [address], [place] [address] 14 Mar, 2013 [facility] [address] [id number] [address] [place] [address], [place] [address] 07 Mar, 2013 [facility] [address] [id number] [address] [place] [address], [place] [address] 07 Mar, 2013 [facility] [address] [id number] [address] [place] [address], [place] [address] 06 Mar, 2013 [facility] [address] [id number] [address] [place] [address], [place] [address] 06 Mar, 2013 [facility] [address] [id number] [address] [place] [address], [place] [address] 19 Sep, 2013 [facility] [address] [id number] [address] [place] [address], [place] [address] 19 Sep, 2013 [facility] [address] [id number] [address] [place] [address], [place] [address] 09 Sep, 2013 [facility] [address] [id number] [address] [place] [address], [place] [address] 09 Sep, 2013 [facility] [address] [id number] [address] [place] [address], [place] [address] 05 Sep, 2013 [facility] [address] [id number] [address] [place] [address], [place] [address] 05 Sep, 2013 [facility] [address] [id number] [address] [place] [address], [place] [address] 05 Sep, 2013 [facility] [address] [id number] [address] [place] [address], [place] [address] 05 Sep, 2013 [facility] [address] [id number] [address] [place] [address], [place] [address] 03 Sep, 2013 [facility] [address] [id number] [address] [place] [address], [place] [address] 02 Sep, 2013 [facility] [address] [id number] [address] [place] [address], [place] [address] Jan, [facility] [address] [id number] [address] [place] [address], [place] [address] Jan, [facility] [address] [id number] [address] [place] [address], [place] [address] Jan, [facility] [address] [id number] [address] [place] [address], [place] [address] Dec, [facility] [address] [id number] [address] [place] [address], [place] [address] Dec, [facility] [address] [id number] [address] [place] [address], [place] [address] Dec, [facility] [address] [id number] [address] [place] [address], [place] [address] Dec, [facility] [address] [id number] [address] [place] [address], [place] [address] Dec, [facility] [address] [id number] [address] [place] [address], [place] [address] Dec, [facility] [address] [place] [id number] Dec, [facility] [address] [place] [id number] Dec, [facility] [address] [id number] [address] [place] [address] Dec, [facility] [address] [id number] [address] [place] [address], [place] [address] Dec, [facility] [address] [id number] [address] [place] [address], [place] [address] Dec, [facility] [address] [id number] [address] [place] [address], [place] [address] Dec, [facility] [address] [id number] [address] [place] [address], [place] [address] Nov, [facility] [address] [id number] [address] [place] [address], [place] [address] Nov, [facility] [address] [id number] [facility] [place] [address] Nov, [facility] [address] [id number] [facility] [place] [address] Nov, [facility] [address] [id number] [facility] [place] [address] Nov, [facility] [address] [id number] [facility] [place] [address] Nov, [facility] [address] [id number] [facility] [place] [address] Nov, [facility] [address] [id number] [address] [place] [address], [place] [address] Nov, [facility] [address] [id number] [address] [place] [address], [place] [address] Nov, [facility] [address] [id number] [address] [place] [address], [place] [address] Nov, [facility] [address] [id number] [address] [place] [address], [place] [address] Nov, [facility] [address] [id number] [address] [place] [address], [place] [address] Nov, [facility] [address] [id number] [address] [place] [address], [place] [address] Nov, [facility] [address] [id number] [address] [place] [address], [place] [address] Oct, [facility] [address] [id number] [address] [place] [address], [place] [address] Oct, [facility] [address] [id number] [address] [place] [address], [place] [address] Oct, [facility] [address] [id number] [address] [place] [address], [place] [address] Oct, [facility] [address] [id number] [facility] [place] [address] Oct, [facility] [address] [id number] [address] [place] [address], [place] [address] Oct, [facility] [address] [id number] [address] [place] [address], [place] [address] Oct, [facility] [address] [id number] [address] [place] [address], [place] [address] Oct, [facility] [address] [id number] [address] [place] [address], [place] [address] Oct, [facility] [address] [id number] [address] [place] [address], [place] [address] Oct, [facility] [address] [id number] [address] [place] [address], [place] [address] Oct, [facility] [address] [id number] [address] [place] [address], [place] [address] Oct, [facility] [address] [id number] [address] [place] [address], [place] [address] September, [facility] [address] [id number] [address] [place] [address], [place] [address] September, [facility] [address] [id number] [address] [place] [address], [place] [address] September, [facility] [address] [id number] [address] [place] [address], [place] [address] September, [facility] [address] [id number] [address] [place] [address], [place] [address] Aug, [facility] [address] [id number] [address] [place] [address], [place] [address] Aug, [facility] [address] [id number] [address] [place] [address], [place] [address] Aug, [facility] [address] [id number] [address] [place] [address], [place] [address] Aug, [facility] [address] [id number] [address] [place] [address], [place] [address] Aug, [facility] [address] [id number] [address] [place] [address], [place] [address] Aug, [facility] [address] [id number] [address] [place] [address], [place] [address] Aug, [facility] [address] [id number] [address] [place] [address], [place] [address] Jul, [facility] [address] [id number] [address] [place] [address], [place] [address] Jul, [facility] [address] [id number] [address] [place] [address], [place] [address] Jul, [facility] [address] [id number] [address] [place] [address], [place] [address] Jul, [facility] [address] [id number] [address] [place] [address], [place] [address] Jul, [facility] [address] [id number] [address] [place] [address], [place] [address] Jul, [facility] [address] [id number] [address] [place] [address], [place] [address] Jul, [facility] [address] [id number] [address] [place] [address], [place] [address] Jul, [facility] [address] [id number] [address] [place] [address], [place] [address] Jul, [facility] [address] [id number] [address] [place] [address], [place] [address] Jul, [facility] [address] [id number] [address] [place] [address], [place] [address] Jul, [facility] [address] [id number] [address] [place] [address], [place] [address] Jul, [facility] [address] [id number] [address] [place] [address], [place] [address] 14 Jul, 2013 [facility] [address] [id number] [address] [place] [address], [place] [address] 14 Jul, 2013 [facility] [address] [id number] [address] [place] [address], [place] [address] 11 Jul, 2013 [facility] [address] [id number] [address] [place] [address], [place] [address] 11 Jul, 2013 [facility] [address] [id number] [address] [place] [address], [place] [address] 11 Jul, 2013 [facility] [address] [id number] [address] [place] [address], [place] [address] Jul, [facility] [address] [id number] [address] [place] [address], [place] [address] Jun, [facility] [address] [id number] [address] [place] [address], [place] [address] 31 Jun, 2013 [facility] [address] [id number] [address] [place] [address], [place] [address] 15 Jun, 2013 [facility] [address] [id number] [address] [place] [address], [place] [address] 15 Jun, 2013 [facility] [address] [id number] [address] [place] [address], [place] [address] 14 Jun, 2013 [facility] [address] [id number] [address] [place] [address], [place] [address] 14 Jun, 2013 [facility] [address] [id number] [address] [place] [address], [place] [address] 14 Jun, 2013 [facility] [address] [id number] [address] [place] [address], [place] [address] 14 Jun, 2013 [facility] [address] [id number] [address] [place] [address], [place] [address] 14 Jun, 2013 [facility] [address] [id number] [address] [place] [address], [place] [address] 14 Jun, 2013 [facility] [address] [id number] [address] [place] [address], [place] [address] 27 May, 2013 [facility] [address] [id number] [address] [place] [address], [place] [address] 27 May, 2013 [facility] [address] [id number] [address] [place] [address], [place] [address] 26 May, 2013 [facility] [address] [id number] [address] [place] [address], [place] [address] 19 May, 2013 [facility] [address] [id number] [address] [place] [address], [place] [address] 19 May, 2013 [facility] [address] [id number] [address] [place] [address], [place] [address] 16 May, 2013 [facility] [address] [id number] [address] [place] [address], [place] [address] 16 May, 2013 [facility] [address] [id number] [address] [place] [address], [place] [address] 16 May, 2013 [facility] [address] [id number] [address] [place] [address], [place] [address] 16 May, 2013 [facility] [address] [id number] [address] [place] [address], [place] [address] 13 May, 2013 [facility] [address] [id number] [address] [place] [address], [place] [address] 13 May, 2013 [facility] [address] [id number] [address] [place] [address], [place] [address] 11 May, 2013 [facility] [address] [id number] [address] [place] [address], [place] [address] 20 Apr, 2013 [facility] [address] [id number] [address] [place] [address], [place] [address] 18 Apr, 2013 [facility] [address] [id number] [address] [place] [address], [place] [address] 18 Apr, 2013 [facility] [address] [id number] [address] [place] [address] Apr, [facility] [address] [id number] [address] [place] [address], [place] [address] Apr, [facility] [address] [id number] [address] [place] [address] 08 Apr, 2013 [facility] [address] [id number] [address] [place] [id number] 08 Apr, 2013 [facility] [address] [id number] [address] [place] [address] Apr, [facility] [address] [id number] [address] [place] [address], [place] [address] Apr, [facility] [address] [id number] [address] [place] [address] Apr, [facility] [address] [id number] [address] [place] [address] Apr, [facility] [address] [id number] [address] [place] [id number] Mar, [facility] [address] [id number] [address] [place] [id number] Mar, [facility] [address] [id number] [address] [place] [address] Mar, [facility] [address] [id number] [address] [place] [address] Mar, [facility] [address] [id number] [address] [place] [address] Mar, [facility] [address] [id number] [address] [place] [id number] Mar, [facility] [address] [id number] [address] [place] [id number] Mar, [facility] [address] [id number] [address] [place] [id number] 18 Mar, 2013 [facility] [address] [id number] [address] [place] [address], [place] [address] 18 Mar, 2013 [facility] [address] [id number] [address] [place] [address], [place] [address] 15 Mar, 2013 [facility] [address] [id number] [address] [place] [address], [place] [address] 15 Mar, 2013 [facility] [address] [id number] [address] [place] [address], [place] [address] Mar, [facility] [address] [id number] [address] [place] [address], [place] [address] 30 Jan, 2013 [facility] [address] [id number] [address] [place] [address], [place] [address] 25 Jan, 2013 [facility] [address] [id number] [address] [place] [address], [place] [address] 20 Jan, 2013 [facility] [address] [id number] [address] [place] [address], [place] [address] Jan, [facility] [address] [id number] [address] [place] [address], [place] [address] Dec, [facility] [address] [id number] [address] [place] [address], [place] [address] Dec, [facility] [address] [id number] [address] [place] [address], [place] [address] Dec, [facility] [address] [id number] [address] [place] [address], [place] [address] Dec, [facility] [address] [id number] [address] [place] [address], [place] [address] Dec, [facility] [address] [id number] [address] [place] [address], [place] [address] Dec, [facility] [address] [id number] [address] [place] [address], [place] [address] Dec, [facility] [address] [id number] [address] [place] [address], [place] [address] Dec, [facility] [address] [id number] [address] [place] [address], [place] [address] Dec, [facility] [address] [id number] [address] [place] [address], [place] [address] Nov, [facility] [address] [id number] [address] [place] [address], [place] [address] Nov, [facility] [address] [id number] [address] [place] [address], [place] [address] Nov, [facility] [address] [id number] [address] [place] [address], [place] [address] Nov, [facility] [address] [id number] [address] [place] [address], [place] [address] Nov, [facility] [address] [id number] [address] [place] [address], [place] [address] Nov, [facility] [address] [id number] [address] [place] [address], [place] [address] Nov, [facility] [address] [id number] [address] [place] [address], [place] [address] Nov, [facility] [address] [id number] [address] [place] [address], [place] [address] Oct, [facility] [address] [id number] [address] [place] [address], [place] [address] Oct, [facility] [address] [id number] [address] [place] [address], [place] [address] Oct, [facility] [address] [id number] [address] [place] [address], [place] [address] Oct, [facility] [address] [id number] [address] [place] [address], [place] [address] Oct, [facility] [address] [id number] [address] [place] [address], [place] [address] Oct, [facility] [address] [id number] [address] [place] [address], [place] [address] 20 Oct, 2012 [facility] [address] [id number] [address] [place] [address], [place] [address] 20 Oct, 2012 [facility] [address] [id number] [address] [place] [address], [place] [address] 19 Oct, 2012 [facility] [address] [id number] [address] [place] [address], [place] [address] 18 Oct, 2012 [facility] [address] [id number] [address] [place] [address], [place] [address] 17 Oct, 2012 [facility] [address] [id number] [address] [place] [address], [place] [address] 14 Oct, 2012 [facility] [address] [id number] [address] [place] [address], [place] [address] 07 Oct, 2012 [facility] [address] [id number] [address] [place] [address], [place] [address] 30 Sep, 2012 [facility] [address] [id number] [address] [place] [address], [place] [address] September, [facility] [address] [id number] [address] [place] [address], [place] [address] 15 Sep, 2012 [facility] [address] [id number] [address] [place] [address], [place] [address] 25 Aug, 2012 [facility] [address] [id number] [address] [place] [address], [place] [address] 24 Aug, 2012 [facility] [address] [id number] [address] [place] [address], [place] [address] 18 Aug, 2012 [facility] [address] [id number] [address] [place] [address], [place] [address] 18 Aug, 2012 [facility] [address] [id number] [address] [place] [address], [place] [address] 18 Aug, 2012 [facility] [address] [id number] [address] [place] [address], [place] [address] 08 Aug, 2012 [facility] [address] [id number] [address] [place] [address], [place] [address] Aug, [facility] [address] [id number] [address] [place] [address], [place] [address] Jul, [facility] [address] [id number] [address] [place] [address], [place] [address] Jul, [facility] [address] [id number] [address] [place] [address], [place] [address] Jul, [facility] [address] [id number] [address] [place] [address], [place] [address] Jul, [facility] [address] [id number] [address] [place] [address], [place] [address] Jul, [facility] [address] [id number] [address] [place] [address], [place] [address] Jul, [facility] [address] [id number] [address] [place] [address], [place] [address] Jul, [facility] [address] [id number] [address] [place] [address], [place] [address] Jul, [facility] [address] [id number] [address] [place] [address], [place] [address] Jul, [facility] [address] [id number] [address] [place] [address], [place] [address] Jul, [facility] [address] [id number] [address] [place] [address], [place] [address] Jul, [facility] [address] [id number] [address] [place] [address], [place] [address] Jul, [facility] [address] [id number] [address] [place] [address], [place] [address] Jul, [facility] [address] [id number] [address] [place] [address], [place] [address] Jun, [facility] [address] [id number] [address] [place] [address], [place] [address] 21 Jun, 2012 [facility] [address] [id number] [address] [place] [address], [place] [address] 19 Jun, 2012 [facility] [address] [id number] [address] [place] [address], [place] [address] 17 Jun, 2012 [facility] [address] [id number] [address] [place] [address], [place] [address] 15 Jun, 2012 [facility] [address] [id number] [address] [place] [address], [place] [address] 14 Jun, 2012 [facility] [address] [id number] [address] [place] [address], [place] [address] 08 Jun, 2012 [facility] [address] [id number] [address] [place] [address], [place] [address] 28 May, 2012 [facility] [address] [id number] [address] [place] [address], [place] [address] 28 May, 2012 [facility] [address] [id number] [address] [place] [address], [place] [address] May, [facility] [address] [id number] [address] [place] [address], [place] [address] May, [facility] [address] [id number] [address] [place] [address], [place] [address] May, [facility] [address] [id number] [address] [place] [address], [place] [address] 24 May, 2012 [facility] [address] [id number] [address] [place] [address], [place] [address] May, [facility] [address] [id number] [address] [place] [address], [place] [address] May, [facility] [address] [id number] [address] [place] [address], [place] [address] May, [facility] [address] [id number] [address] [place] [address], [place] [address] May, [facility] [address] [id number] [address] [place] [address], [place] [address] Apr, [facility] [address] [id number] [address] [place] [address], [place] [address] Apr, [facility] [address] [id number] [address] [place] [address], [place] [address] Apr, [facility] [address] [id number] [address] [place] [address], [place] [address] Apr, [facility] [address] [id number] [address] [place] [address], [place] [address] Apr, [facility] [address] [id number] [address] [place] [address], [place] [address] Apr, [facility] [address] [id number] [address] [place] [address], [place] [address] Apr, [facility] [address] [id number] [address] [place] [address], [place] [address] Apr, [facility] [address] [id number] [address] [place] [address], [place] [address] Apr, [facility] [address] [id number] [address] [place] [address], [place] [address] Apr, [facility] [address] [id number] [address] [place] [address], [place] [address] Apr, [facility] [address] [id number] [address] [place] [address], [place] [address] Apr, [facility] [address] [id number] [address] [place] [address], [place] [address] Mar, [facility] [address] [id number] [address] [place] [address], [place] [address] Mar, [facility] [address] [id number] [address] [place] [address], [place] [address] Mar, [facility] [address] [id number] [address] [place] [address], [place] [address] Mar, 2011 [facility] [address] [id number] [address] [place] [address], [place] [address] 30 Mar, 2011 [facility] [address] [id number] [address] [place] [address], [place] [address] 30 Mar, 2011 [facility] [address] [id number] [address] [place] [address], [place] [address] Mar, 2011 [facility] [address] [id number] [address] [place] [address], [place] [address] Mar, 2011 [facility] [address] [id number] [address] [place] [address], [place] [address] Mar, [facility] [address] [id number] [address] [place] [address] Mar, 2011 [facility] [address] [id number] [address] [place] [address], [place] [address] Mar, [facility] [address] [id number] [address] [place] [address] Mar, [facility] [address] [id number] [address] [place] [address], [place] [address] Mar, [facility] [address] [id number] [address] [place] [address] Mar, [facility] [address] [id number] [address] [place] [address] Mar, [facility] [address] [id number] [address] [place] [address] Mar, [facility] [address] [id number] [address] [place] [address], [place] [address] 25 Jan, 2012 [facility] [address] [id number] [address] [place] [address] 24 Jan, 2012 [facility] [address] [id number] [address] [place] [address] 22 Jan, 2012 [facility] [address] [id number] [address] [place] [address], [place] [address] 22 Jan, 2012 [facility] [address] [id number] [address] [place] [address], [place] [address] 21 Jan, 2012 [facility] [address] [id number] [address] [place] [address], [place] [address] 18 Jan, 2012 [facility] [address] [id number] [address] [place] [address], [place] [address] 14 Jan, 2012 [facility] [address] [id number] [address] [place] [address], [place] [address] 07 Jan, 2012 [facility] [address] [id number] [address] [place] [address], [place] [address] 15 Dec, 2011 [facility] [address] [id number] [address] [place] [address], [place] [address] 10 Dec, 2011 [facility] [address] [id number] [address] [place] [address], [place] [address] Dec, [facility] [address] [id number] [address] [place] [address], [place] [address] Dec, [facility] [address] [id number] [address] [place] [address], [place] [address] Dec, [facility] [address] [id number] [address] [place] [address], [place] [address] Dec, [facility] [address] [id number] [address] [place] [address], [place] [address] Dec, [facility] [address] [id number] [address] [place] [address], [place] [address] Nov, [facility] [address] [id number] [address] [place] [address], [place] [address] Oct, [facility] [address] [id number] [address] [place] [address], [place] [address] Aug, [facility] [address] [id number] [address] [place] [address], [place] [address] Jul, [facility] [address] [id number] [address] [place] [address], [place] [address] 19 Jul, 2011 [facility] [address] [id number] [address] [place] [address], [place] [address] 16 Jul, 2011 [facility] [address] [id number] [address] [place] [address], [place] [address] 14 Jul, 2011 [facility] [address] [id number] [address] [place] [address], [place] [address] 07 Jul, 2011 [facility] [address] [id number] [address] [place] [address], [place] [address] 02 Jul, 2011 [facility] [address] [id number] [address] [place] [address], [place] [address] 21 Jul, 2011 [facility] [address] [id number] [address] [place] [address], [place] [address] 15 Jul, 2011 [facility] [address] [id number] [address] [place] [address], [place] [address] 13 Jul, 2011 [facility] [address] [id number] [address] [place] [address], [place] [address] 03 Jul, 2011 [facility] [address] [id number] [address] [place] [address], [place] [address] 02 Jul, 2011 [facility] [address] [id number] [address] [place] [address], [place] [address] 24 Jun, 2011 [facility] [address] [id number] [address] [place] [address], [place] [address] 24 Jun, 2011 [facility] [address] [id number] [address] [place] [address], [place] [address] 13 Jun, 2011 [facility] [address] [id number] [address] [place] [address], [place] [address] 11 Jun, 2011 [facility] [address] [id number] [address] [place] [address], [place] [address] 06 Jun, 2011 [facility] [address] [id number] [address] [place] [address], [place] [address] 05 Jun, 2011 [facility] [address] [id number] [address] [place] [address], [place] [address] Jun, [facility] [address] [id number] [address] [place] [address], [place] [address] May, [facility] [address] [id number] [address] [place] [address], [place] [address] May, [facility] [address] [id number] [address] [place] [address], [place] [address] May, [facility] [address] [id number] [address] [place] [address], [place] [address] May, [facility] [address] [id number] [address] [place] [address], [place] [address] May, [facility] [address] [id number] [address] [place] [address], [place] [address] May, [facility] [address] [id number] [address] [place] [address], [place] [address] May, [facility] [address] [id number] [address] [place] [address], [place] [address] May, [facility] [address] [id number] [address] [place] [address], [place] [address] May, [facility] [address] [id number] [address] [place] [address], [place] [address] May, [facility] [address] [id number] [address] [place] [address], [place] [address] Apr, [facility] [address] [id number] [address] [place] [address], [place] [address] Apr, [facility] [address] [id number] [address] [place] [address], [place] [address] Apr, [facility] [address] [id number] [address] [place] [address], [place] [address] Apr, [facility] [address] [facility] [id number] [address] [place] [address] Mar, [facility] [address] [facility] [id number] [address] [place] [address] Mar, [facility] [address] [facility] [id number] [address] [place] [address] Mar, [facility] [address] [facility] [id number] [address] [place] [address] Mar, IMMUNIZATIONS No Known Immunizations SOCIAL HISTORY [...]
--- OUTSIDE RECORDS SUMMARY | 2020-01-03 17:59 | XMS REPORT ---
Author Author Pattie ELIZABETH [facility] Address [address] [place] [address] Care Team Providers Care Manager Data [employer] Name Role Phone WILL ELIZABETH Unavailable PROBLEMS Type Condition ICD9-CM Code SSS86-PD Code Onset Dates Condition S tatus SNOMED Code Problem FRANCIS (generalized anxiety disorder) F41.1 Active 78322291 Problem Thoracic disc herniation M51.24 Activ e 152679430 Problem Major depressive disorder in partial remission F32 .4 Active 53687982 Problem Seizure disorder G40.909 Active 128 097475 Problem Conversion disorder (or hysterical neurosis, conversion ty pe) F44.9 Active 86083484 Problem Constipation, unspecified constipation type K59.00 Active 89723949 Problem Mild episode of recurrent major depressive disorder F33.0 Active 921800358 Problem Restless leg syndrome G25.81 Active 81476486 Problem Nonadherence to medication Z91.14 Act vivian 052195882 Problem Slow transit constipation K59.01 Acti ve 22662177 Problem Atrophic vaginitis N95.2 Active 5 8164537 Problem Paroxysmal tachycardia I47.9 Active 82322980 Problem Other chronic pain G89.29 Active 8 4311795 Problem Mild intermittent asthma without complication J45. 20 Active 971085895 Problem Obesity (BMI 30.0-34.9) E66.9 Active [id number] Problem High blood pressure I10 Active 33757429 ALLERGIES No Information ENCOUNTERS Encounter Location Date Diagnosis [facility] [address] [id number] [place] [id number] 26 Oct, 2019 Breast cancer screening Z12.[id number] [place] [address] 08 Oct, 2019 Breast cancer screening Z12. 39 [facility] [address] [facility] [id number] [address] [place] [address] Oct, [facility] [address] [id number] [address] [place] [id number] Oct, [facility] [address] [id number] [address] [place] [id number] September, [facility] [address] [id number] [address] [place] [id number] September, [facility] [address] [id number] [address] [place] [id number] September, Well woman exam with routine gynecological exam Z01.419 and Atrophic vaginitis N95.2 [place] [address] [facility] [id number] [address] [place] [id number] September, Major depressive disorder in partial remission F32.4 ; FRANCIS (generalized anxiety disorder) F41.1 ; Restless leg syndrome G25.81 and Nonadherence to medication Z91.14 [facility] [address] [id number] [address] [place] [phone] September, [facility] [address] [facility] [id number] [address] [place] [phone] Aug, [facility] [address] [place] [id number] [place] [id number] Aug, Dental examination Z01.20 [facility] [address] [id number] [address] [place] [id number] 15 Aug, 2019 Dental examination Z01.20 an d Caries K02.9 [facility] [address] [id number] [address] [place] [id number] Aug, [facility] [address] [id number] [address] [place] [id number] Aug, [facility] [address] [facility] [id number] [address] [place] [id number] Aug, Other chronic pain G89.29 an d Back muscle spasm M62.830 [facility] [address] [id number] [address] [place] [id number] Aug, [facility] [address] [id number] [address] [place] [id number] Aug, Major depressive disorder in partial remission F32.4 ; FRANCIS (generalized anxiety disorder) F41.1 ; Restless leg syndrome G25.81 and Nonadherence to medication Z91.14 [facility] [address] [id number] [address] [place] [phone] Aug, [facility] [address] [id number] [address] [place] [phone] Jul, [facility] [address] [id number] [address] [place] [id number] Jul, [facility] [address] [id number] [address] [place] [phone] Jul, Major depressive disorder in partial remission F32.4 ; FRANCIS (generalized anxiety disorder) F41.1 ; Restless leg syndrome G25.81 and High blood pressure I10 [facility] [address] [id number] [address] [place] [id number] Jul, [facility] [address] [id number] [address] [place] [phone] Jul, [facility] [address] [id number] [address] [place] [phone] Jun, [facility] [address] [id number] [address] [place] [id number] May, [facility] [address] [id number] [address] [place] [phone] Apr, [facility] [address] [id number] [address] [place] [phone] Apr, [facility] [address] [id number] [address] [place] [id number] Mar, [facility] [address] [id number] [address] [place] [id number] Mar, Major depressive disorder in partial remission F32.4 ; FRANCIS (generalized anxiety disorder) F41.1 and Restless leg syndrome G25.81 [facility] [address] [id number] [address] [place] [id number] Mar, Obesity (BMI 30.0-34.9) E66. 9 [facility] [address] [id number] [address] [place] [id number] Jan, [facility] [address] [id number] [address] [place] [phone] Jan, Burn T30.0 [facility] [address] [id number] [address] [place] [phone] Dec, [facility] [address] [id number] [address] [place] [phone] Nov, [facility] [address] [id number] [address] [place] [phone] Nov, [facility] [address] [id number] [address] [place] [phone] Nov, Dental examination Z01.20 [facility] [address] [id number] [address] [place] [phone] September, [facility] [address] [id number] [address] [place] [id number] September, Decay, teeth K02.9 and Denta l examination Z01.20 [facility] [address] [id number] [address] [place] [id number] September, Dental examination Z01.20 [facility] [address] [id number] [address] [place] [phone] September, FRANCIS (generalized anxiety dis order) F41.1 ; Major depressive disorder in partial remission F32.4 and Restless leg syndrome G25.81 [facility] [address] [id number] [address] [place] [id number] Aug, [facility] [address] [facility] [id number] [address] [place] [phone] Jul, [place] [address] [facility] [id number] [address] [place] [id number] Jul, Encounter to discuss test re sults Z71.2 [place] [address] [place] [id number] [address] [place] [id number] Jul, Pelvic pain R10.2 ; Screenin g for breast cancer Z12.31 and Obesity (BMI 30.0-34.9) E66.9 [place] [address] [facility] [id number] [address] [place] [phone] Jul, Mild intermittent asthma wit hout complication J45.20 [place] [address] [place] [id number] [place] [phone] Jul, Major depressive disorder in partial remission F32.4 and FRANCIS (generalized anxiety disorder) F41.1 [place] [id number] [place] [id number] Jul, [place] [address] [place] [id number] [address] [place] [id number] Jun, [place] [address] [place] [id number] [place] [phone] May, Major depressive disorder in partial remission F32.4 ; FRANCIS (generalized anxiety disorder) F41.1 and Restless leg syndrome G25.81 [facility] [address] [place] [id number] [address] [place] [phone] Apr, [place] [address] [facility] [id number] [address] [place] [phone] Mar, [facility] [address] [facility] [id number] [address] [place] [phone] Jan, Pain in thoracic spine M54.6 and Other chronic pain G89.29 [facility] [address] [place] [id number] [address] [place] [phone] Jan, [facility] [address] [id number] [address] [place] [id number] Jan, Mild episode of recurrent ma saray depressive disorder F33.0 ; FRANCIS (generalized anxiety disorder) F41.1 and Restless leg syndrome G25.81 [facility] [address] [id number] [address] [place] [phone] Dec, [facility] [address] [id number] [address] [place] [phone] Dec, Hospital discharge follow-up Z09 [facility] [address] [id number] [address] [place] [id number] Nov, [facility] [address] [id number] [address] [place] [phone] Nov, [facility] [address] [id number] [address] [place] [id number] September, [facility] [address] [id number] [address] [place] [id number] September, [facility] [address] [id number] [address] [place] [phone] September, Major depressive disorder in partial remission F32.4 ; FRANCIS (generalized anxiety disorder) F41.1 and Restless leg syndrome G25.81 [facility] [address] [id number] [address] [place] [phone] September, [facility] [address] [id number] [address] [place] [id number] Jul, [facility] [address] [id number] [address] [place] [id number] Jul, Dorsalgia, unspecified M54.9 [facility] [address] [id number] [address] [place] [phone] Jul, Mild episode of recurrent ma saray depressive disorder F33.0 and FRANCIS (generalized anxiety disorder) F41.1 [facility] [address] [id number] [address] [place] [id number] May, [facility] [address] [facility] [id number] [address] [place] [id number] May, Dysuria R30.0 and Acute cyst itis with hematuria N30.01 [facility] [address] [facility] [id number] [address] [place] [phone] Apr, [facility] [address] [facility] [id number] [address] [place] [id number] Apr, Major depressive disorder in partial remission F32.4 and FRANCIS (generalized anxiety disorder) F41.1 [place] [address] [facility] [id number] [address] [place] [phone] Mar, Paroxysmal tachycardia I47.9 [place] [address] [facility] [id number] [address] [place] [id number] Mar, Paroxysmal tachycardia I47.9 and Pain of left lower extremity M79.605 [facility] [address] [facility] [id number] [address] [place] [id number] Mar, FRANCIS (generalized anxiety dis order) F41.1 and Major depressive disorder in partial remission F32.4 [facility] [address] [facility] [id number] [address] [place] [phone] Jan, [facility] [address] [facility] [id number] [address] [place] [id number] 14 Jan, 2017 [facility] [address] [facility] [id number] [address] [place] [phone] Jan, [facility] [address] [facility] [id number] [address] [place] [id number] Dec, Constipation, unspecified co nstipation type K59.00 [facility] [address] [facility] [id number] [address] [place] [id number] Dec, [facility] [address] [facility] [id number] [address] [place] [phone] Nov, [facility] [address] [place] [id number] [address] [place] [phone] Nov, Major depressive disorder in partial remission F32.4 and FRANCIS (generalized anxiety disorder) F41.1 [facility] [address] [facility] [id number] [address] [place] [phone] Oct, Abdominal pain R10.9 and Slo w transit constipation K59.01 [facility] [address] [facility] [id number] [address] [place] [id number] Aug, Major depressive disorder in partial remission F32.4 ; FRANCIS (generalized anxiety disorder) F41.1 ; Conversion disorder (or hysterical neurosis, conversion type) F44.9 ; Dorsalgia, unspecified M54.9 and Long-term use of high-risk medication Z79.899 [place] [address] [place] [id number] [address] [place] [phone] Aug, [facility] [address] [place] [id number] [address] [place] [id number] Jul, Paroxysmal tachycardia I47.9 [place] [address] [place] [id number] [place] [phone] Jul, Paroxysmal tachycardia I47.9 [place] [address] [place] [id number] [address] [place] [id number] Jun, [facility] [address] [place] [id number] [address] [place] [id number] Jun, Major depressive disorder in partial remission F32.4 ; FRANCIS (generalized anxiety disorder) F41.1 and Conversion disorder (or hysterical neurosis, conversion type) F44.9 [facility] [address] [facility] [id number] [address] [place] [id number] May, Pelvic pain R10.2 [facility] [address] [facility] [id number] [address] [place] [phone] Apr, Gastroenteritis K52.9 [facility] [address] [id number] [address] [place] [id number] 17 Apr, 2016 Blood in urine R31.9 and Acu te cystitis with hematuria N30.01 [facility] [address] [facility] [id number] [address] [place] [phone] Apr, Major depressive disorder in partial remission F32.4 ; FRANCIS (generalized anxiety disorder) F41.1 and Conversion disorder (or hysterical neurosis, conversion type) F44.9 [facility] [address] [id number] [address] [place] [phone] Apr, [facility] [address] [facility] [id number] [address] [place] [phone] Apr, Abnormal mammogram R92.8 [facility] [address] [facility] [id number] [address] [place] [phone] Mar, [facility] [address] [facility] [id number] [address] [place] [id number] Mar, Gastroenteritis K52.9 and Se izure disorder G40.909 [facility] [address] [id number] [address] [place] [id number] Dec, [facility] [address] [id number] [address] [place] [id number] Dec, Other headache syndrome G44. 89 [facility] [address] [facility] [id number] [address] [place] [id number] Dec, [facility] [address] [id number] [address] [place] [id number] Dec, Thoracic disc herniation M51 .24 [facility] [address] [facility] [id number] [address] [place] [phone] Dec, [facility] [address] [facility] [id number] [address] [place] [phone] Nov, Major depressive disorder in partial remission F32.4 and FRANCIS (generalized anxiety disorder) F41.1 [facility] [address] [id number] [address] [place] [id number] 13 Nov, 2015 [facility] [address] [id number] [address] [place] [phone] Nov, Dorsalgia, unspecified M54.9 [facility] [address] [id number] [address] [place] [phone] Oct, [facility] [address] [id number] [address] [place] [id number] September, [facility] [address] [id number] [address] [place] [phone] Aug, [facility] [address] [id number] [address] [place] [id number] Aug, Major depressive disorder in partial remission F32.4 and FRANCIS (generalized anxiety disorder) F41.1 [facility] [address] [id number] [address] [place] [id number] Aug, [facility] [address] [id number] [address] [place] [id number] Jul, Abnormal mammogram R92.8 [facility] [address] [id number] [address] [place] [id number] Jul, [facility] [address] [id number] [address] [place] [id number] Jul, [facility] [address] [id number] [address] [place] [id number] Jul, [facility] [address] [id number] [address] [place] [id number] Jul, [facility] [address] [id number] [address] [place] [id number] Jul, [facility] [address] [id number] [address] [place] [id number] Jul, [facility] [address] [id number] [address] [place] [id number] Jun, Major depressive disorder in partial remission F32.4 and FRANCIS (generalized anxiety disorder) F41.1 [facility] [address] [id number] [address] [place] [id number] Jun, [facility] [address] [id number] [address] [place] [id number] May, [facility] [address] [id number] [address] [place] [phone] Apr, [facility] [address] [id number] [address] [place] [id number] Mar, Major depressive disorder, r ecurrent episode, moderate F33.1 ; PTSD (post-traumatic stress disorder) F43.10 and FRANCIS (generalized anxiety disorder) F41.1 [facility] [address] [id number] [address] [place] [phone] Mar, [facility] [address] [id number] [address] [place] [id number] Mar, [facility] [address] [id number] [address] [place] [id number] Mar, [facility] [address] [id number] [address] [place] [id number] Mar, [facility] [address] [id number] [address] [place] [id number] 23 Jan, 2015 [facility] [address] [id number] [address] [place] [id number] 15 Jan, 2015 [facility] [address] [id number] [address] [place] [id number] 15 Jan, 2015 [facility] [address] [id number] [address] [place] [id number] 14 Jan, 2015 Thoracic disc herniation 722 .11 [facility] [address] [id number] [address] [place] [phone] Dec, [facility] [address] [id number] [address] [place] [phone] Dec, [facility] [address] [id number] [address] [place] [id number] Dec, [facility] [address] [id number] [address] [place] [id number] Nov, [facility] [address] [id number] [address] [place] [id number] Nov, Generalized anxiety disorder 300.02 ; Posttraumatic stress disorder 309.81 and Major depressive disorder, recurrent episode, moderate 296.32 [facility] [address] [id number] [address] [place] [phone] Nov, [facility] [address] [id number] [address] [place] [id number] Nov, [facility] [address] [id number] [address] [place] [id number] Oct, [facility] [address] [id number] [address] [place] [id number] Oct, [facility] [address] [id number] [address] [place] [id number] Oct, [facility] [address] [id number] [address] [place] [id number] September, [facility] [address] [id number] [address] [place] [id number] September, [facility] [address] [id number] [address] [place] [id number] Aug, [facility] [address] [id number] [address] [place] [id number] Aug, [facility] [address] [id number] [address] [place] [id number] Jul, [facility] [address] [id number] [address] [place] [id number] Jul, [facility] [address] [id number] [address] [place] [address], [place] [address] Jul, [facility] [address] [id number] [address] [place] [address], [place] [id number] Jul, [facility] [address] [id number] [address] [place] [address], [place] [id number] 16 Jul, 2014 [facility] [address] [id number] [address] [place] [address], [place] [address] Jul, [facility] [address] [id number] [address] [place] [address], [place] [id number] Jul, [facility] [address] [id number] [address] [place] [address], [place] [id number] Jul, [facility] [address] [id number] [address] [place] [address], [place] [id number] Jul, [facility] [address] [id number] [address] [place] [address], [place] [id number] Jul, [facility] [address] [id number] [address] [place] [address], [place] [address] Jun, [facility] [address] [id number] [address] [place] [address], [place] [address] Jun, [facility] [address] [id number] [address] [place] [address], [place] [id number] Jun, [facility] [address] [id number] [address] [place] [address], [place] [id number] May, [facility] [address] [id number] [address] [place] [address], [place] [address] Apr, [facility] [address] [id number] [address] [place] [address], [place] [id number] Apr, [facility] [address] [id number] [address] [place] [address], [place] [address] Apr, [facility] [address] [id number] 25 [place] [address] Apr, [facility] [address] [id number] [address] [place] [address], [place] [address] Apr, [facility] [address] [id number] [address] [place] [address] Apr, [facility] [address] [id number] [address] [place] [address], [place] [address] Apr, [facility] [address] [id number] [address] [place] [address], [place] [address] Apr, [facility] [address] [id number] [address] [place] [address], [place] [address] Mar, [facility] [address] [id number] [address] [place] [address], [place] [address] Mar, [facility] [address] [id number] [address] [place] [address] Mar, [facility] [address] [id number] [address] [place] [address], [place] [address] Mar, [facility] [address] [id number] [address] [place] [address], [place] [address] Mar, [facility] [address] [id number] [address] [place] [address] Mar, [facility] [address] [id number] [address] [place] [address], [place] [address] Mar, [facility] [address] [id number] [address] [place] [address] Mar, [facility] [address] [id number] [address] [place] [address], [place] [address] Mar, [facility] [address] [id number] [address] [place] [address], [place] [address] Mar, [facility] [address] [id number] [address] [place] [address], [place] [address] Mar, [facility] [address] [id number] [address] [place] [address], [place] [address] 14 Mar, 2013 [facility] [address] [id number] [address] [place] [address], [place] [address] 14 Mar, 2013 [facility] [address] [id number] [address] [place] [address], [place] [address] 07 Mar, 2013 [facility] [address] [id number] [address] [place] [address], [place] [address] 07 Mar, 2013 [facility] [address] [id number] [address] [place] [address], [place] [address] 06 Mar, 2013 [facility] [address] [id number] [address] [place] [address], [place] [address] 06 Mar, 2013 [facility] [address] [id number] [address] [place] [address], [place] [address] 19 Sep, 2013 [facility] [address] [id number] [address] [place] [address], [place] [address] 19 Sep, 2013 [facility] [address] [id number] [address] [place] [address], [place] [address] 09 Sep, 2013 [facility] [address] [id number] [address] [place] [address], [place] [address] 09 Sep, 2013 [facility] [address] [id number] [address] [place] [address], [place] [address] 05 Sep, 2013 [facility] [address] [id number] [address] [place] [address], [place] [address] 05 Sep, 2013 [facility] [address] [id number] [address] [place] [address], [place] [address] 05 Sep, 2013 [facility] [address] [id number] [address] [place] [address], [place] [address] 05 Sep, 2013 [facility] [address] [id number] [address] [place] [address], [place] [address] 03 Sep, 2013 [facility] [address] [id number] [address] [place] [address], [place] [address] Jan, [facility] [address] [id number] [address] [place] [address], [place] [address] Jan, [facility] [address] [id number] [address] [place] [address], [place] [address] Jan, [facility] [address] [id number] [address] [place] [address], [place] [address] Jan, [facility] [address] [id number] [address] [place] [address], [place] [address] Dec, [facility] [address] [id number] [address] [place] [address], [place] [address] Dec, [facility] [address] [id number] [address] [place] [address], [place] [address] Dec, [facility] [address] [id number] [address] [place] [address], [place] [address] Dec, [facility] [address] [id number] [address] [place] [address], [place] [address] Dec, [facility] [address] [id number] [address] [place] [address], [place] [address] Dec, [facility] [address] [place] [id number] Dec, [facility] [address] [place] [id number] Dec, [facility] [address] [id number] [address] [place] [address], [place] [address] Dec, [facility] [address] [id number] [address] [place] [address], [place] [address] Dec, [facility] [address] [id number] [address] [place] [address], [place] [address] Dec, [facility] [address] [id number] [address] [place] [address], [place] [address] Dec, [facility] [address] [id number] [address] [place] [address], [place] [address] Nov, [facility] [address] [id number] [facility] [place] [address] Nov, [facility] [address] [id number] [address] [place] [address], [place] [address] Nov, [facility] [address] [id number] [address] [place] [address], [place] [address] Nov, [facility] [address] [id number] [address] [place] [address], [place] [address] Nov, [facility] [address] [id number] [address] [place] [address], [place] [address] Nov, [facility] [address] [id number] [address] [place] [address], [place] [address] Nov, [facility] [address] [id number] [address] [place] [address], [place] [address] Nov, [facility] [address] [id number] [address] [place] [address], [place] [address] Nov, [facility] [address] [id number] [address] [place] [address], [place] [address] Nov, [facility] [address] [id number] [address] [place] [address], [place] [address] Nov, [facility] [address] [id number] [address] [place] [address], [place] [address] Nov, [facility] [address] [id number] [address] [place] [address], [place] [address] Nov, [facility] [address] [id number] [address] [place] [address], [place] [address] Oct, [facility] [address] [id number] [address] [place] [address], [place] [address] Oct, [facility] [address] [id number] [address] [place] [address], [place] [address] Oct, [facility] [address] [id number] [address] [place] [address], [place] [address] Oct, [facility] [address] [id number] [facility] [place] [address] Oct, [facility] [address] [id number] [address] [place] [address], [place] [address] Oct, [facility] [address] [id number] [address] [place] [address], [place] [address] Oct, [facility] [address] [id number] [address] [place] [address], [place] [address] Oct, [facility] [address] [id number] [address] [place] [address], [place] [address] Oct, [facility] [address] [id number] [address] [place] [address], [place] [address] Oct, [facility] [address] [id number] [address] [place] [address], [place] [address] Oct, [facility] [address] [id number] [address] [place] [address], [place] [address] Oct, [facility] [address] [id number] [address] [place] [address], [place] [address] September, [facility] [address] [id number] [address] [place] [address], [place] [address] September, [facility] [address] [id number] [address] [place] [address], [place] [address] September, [facility] [address] [id number] [address] [place] [address], [place] [address] September, [facility] [address] [id number] [address] [place] [address], [place] [address] Aug, [facility] [address] [id number] [address] [place] [address], [place] [address] Aug, [facility] [address] [id number] [address] [place] [address], [place] [address] Aug, [facility] [address] [id number] [facility] [place] [address] 22 Aug, 2013 [facility] [address] [id number] [facility] [place] [address] 18 Aug, 2013 [facility] [address] [id number] [facility] [place] [address] Aug, [facility] [address] [id number] [address] [place] [address], [place] [address] Aug, [facility] [address] [id number] [address] [place] [address], [place] [address] 28 Jul, 2013 [facility] [address] [id number] [address] [place] [address], [place] [address] Jul, [facility] [address] [id number] [address] [place] [address], [place] [address] Jul, [facility] [address] [id number] [address] [place] [address], [place] [address] Jul, [facility] [address] [id number] [address] [place] [address], [place] [address] Jul, [facility] [address] [id number] [address] [place] [address], [place] [address] Jul, [facility] [address] [id number] [address] [place] [address], [place] [address] 18 Jul, 2013 [facility] [address] [id number] [address] [place] [address], [place] [address] Jul, [facility] [address] [id number] [address] [place] [address], [place] [address] Jul, [facility] [address] [id number] [address] [place] [address], [place] [address] Jul, [facility] [address] [id number] [address] [place] [address], [place] [address] 18 Jul, 2013 [facility] [address] [id number] [address] [place] [address], [place] [address] 18 Jul, 2013 [facility] [address] [id number] [address] [place] [address], [place] [address] 14 Jul, 2013 [facility] [address] [id number] [address] [place] [address], [place] [address] 14 Jul, 2013 [facility] [address] [id number] [address] [place] [address], [place] [address] Jul, [facility] [address] [id number] [address] [place] [address], [place] [address] Jul, [facility] [address] [id number] [address] [place] [address], [place] [address] Jul, [facility] [address] [id number] [address] [place] [address], [place] [address] Jul, [facility] [address] [id number] [address] [place] [address], [place] [address] Jun, [facility] [address] [id number] [address] [place] [address], [place] [address] 31 Jun, 2013 [facility] [address] [id number] [address] [place] [address], [place] [address] 15 Jun, 2013 [facility] [address] [id number] [address] [place] [address], [place] [address] 15 Jun, 2013 [facility] [address] [id number] [address] [place] [address], [place] [address] 14 Jun, 2013 [facility] [address] [id number] [address] [place] [address], [place] [address] 14 Jun, 2013 [facility] [address] [id number] [address] [place] [address], [place] [address] 14 Jun, 2013 [facility] [address] [id number] [address] [place] [address], [place] [address] 14 Jun, 2013 [facility] [address] [id number] [address] [place] [address], [place] [address] 14 Jun, 2013 [facility] [address] [id number] [address] [place] [address], [place] [address] 14 Jun, 2013 [facility] [address] [id number] [address] [place] [address], [place] [address] 27 May, 2013 [facility] [address] [id number] [address] [place] [address], [place] [address] 27 May, 2013 [facility] [address] [id number] [address] [place] [address], [place] [address] 26 May, 2013 [facility] [address] [id number] [address] [place] [address], [place] [address] 19 May, 2013 [facility] [address] [id number] [address] [place] [address], [place] [address] 19 May, 2013 [facility] [address] [id number] [address] [place] [address], [place] [address] 16 May, 2013 [facility] [address] [id number] [address] [place] [address], [place] [address] 16 May, 2013 [facility] [address] [id number] [address] [place] [address], [place] [address] 16 May, 2013 [facility] [address] [id number] [address] [place] [address], [place] [address] 16 May, 2013 [facility] [address] [id number] [address] [place] [address], [place] [address] 13 May, 2013 [facility] [address] [id number] [address] [place] [address], [place] [address] 13 May, 2013 [facility] [address] [id number] [address] [place] [address], [place] [address] 11 May, 2013 [facility] [address] [id number] [address] [place] [address], [place] [address] 20 Apr, 2013 [facility] [address] [id number] [address] [place] [address], [place] [address] 18 Apr, 2013 [facility] [address] [id number] [address] [place] [address], [place] [address] Apr, [facility] [address] [id number] [address] [place] [address], [place] [address] Apr, [facility] [address] [id number] [address] [place] [address], [place] [address] Apr, [facility] [address] [id number] [address] [place] [address], [place] [address] 08 Apr, 2013 [facility] [address] [id number] [address] [place] [address] 08 Apr, 2013 [facility] [address] [id number] [address] [place] [address], [place] [address] Apr, [facility] [address] [id number] [address] [place] [address] Apr, [facility] [address] [id number] [address] [place] [address], [place] [address] Apr, [facility] [address] [id number] [address] [place] [address] Apr, [facility] [address] [id number] [address] [place] [address], [place] [address] Mar, [facility] [address] [id number] [address] [place] [address] Mar, [facility] [address] [id number] [address] [place] [address] Mar, [facility] [address] [id number] [address] [place] [address] Mar, [facility] [address] [id number] [address] [place] [address], [place] [address] Mar, [facility] [address] [id number] [address] [place] [address] Mar, [facility] [address] [id number] [address] [place] [address] Mar, [facility] [address] [id number] [address] [place] [address], [place] [address] 18 Mar, 2013 [facility] [address] [id number] [address] [place] [address], [place] [address] 18 Mar, 2013 [facility] [address] [id number] [address] [place] [address], [place] [address] 15 Mar, 2013 [facility] [address] [id number] [address] [place] [address], [place] [address] Mar, [facility] [address] [id number] [address] [place] [address], [place] [address] Mar, [facility] [address] [id number] [address] [place] [address], [place] [address] 30 Jan, 2013 [facility] [address] [id number] [address] [place] [address], [place] [address] Jan, [facility] [address] [id number] [address] [place] [address], [place] [address] Jan, [facility] [address] [id number] [address] [place] [address], [place] [address] Jan, [facility] [address] [id number] [address] [place] [address], [place] [address] Dec, [facility] [address] [id number] [address] [place] [address], [place] [address] Dec, [facility] [address] [id number] [address] [place] [address], [place] [address] Dec, [facility] [address] [id number] [address] [place] [address], [place] [address] Dec, [facility] [address] [id number] [address] [place] [address], [place] [address] Dec, [facility] [address] [id number] [address] [place] [address], [place] [address] Dec, [facility] [address] [id number] [address] [place] [address], [place] [address] Dec, [facility] [address] [id number] [address] [place] [address], [place] [address] Dec, [facility] [address] [id number] [address] [place] [address], [place] [address] Dec, [facility] [address] [id number] [address] [place] [address], [place] [address] Nov, [facility] [address] [id number] [address] [place] [address], [place] [address] Nov, [facility] [address] [id number] [address] [place] [address], [place] [address] Nov, [facility] [address] [id number] [address] [place] [address], [place] [address] Nov, [facility] [address] [id number] [address] [place] [address], [place] [address] Nov, [facility] [address] [id number] [address] [place] [address], [place] [address] Nov, [facility] [address] [id number] [address] [place] [address], [place] [address] Nov, [facility] [address] [id number] [address] [place] [address], [place] [address] Nov, [facility] [address] [id number] [address] [place] [address], [place] [address] Oct, [facility] [address] [id number] [address] [place] [address], [place] [address] Oct, [facility] [address] [id number] [address] [place] [address], [place] [address] Oct, [facility] [address] [id number] [address] [place] [address], [place] [address] Oct, [facility] [address] [id number] [address] [place] [address], [place] [address] Oct, [facility] [address] [id number] [address] [place] [address], [place] [address] 21 Oct, 2012 [facility] [address] [id number] [address] [place] [address], [place] [address] 20 Oct, 2012 [facility] [address] [id number] [address] [place] [address], [place] [address] 20 Oct, 2012 [facility] [address] [id number] [address] [place] [address], [place] [address] 19 Oct, 2012 [facility] [address] [id number] [address] [place] [address], [place] [address] 18 Oct, 2012 [facility] [address] [id number] [address] [place] [address], [place] [address] 17 Oct, 2012 [facility] [address] [id number] [address] [place] [address], [place] [address] 14 Oct, 2012 [facility] [address] [id number] [address] [place] [address], [place] [address] 07 Oct, 2012 [facility] [address] [id number] [address] [place] [address], [place] [address] 30 Sep, 2012 [facility] [address] [id number] [address] [place] [address], [place] [address] 22 Sep, 2012 [facility] [address] [id number] [address] [place] [address], [place] [address] 15 Sep, 2012 [facility] [address] [id number] [address] [place] [address], [place] [address] 25 Aug, 2012 [facility] [address] [id number] [address] [place] [address], [place] [address] 24 Aug, 2012 [facility] [address] [id number] [address] [place] [address], [place] [address] 18 Aug, 2012 [facility] [address] [id number] [address] [place] [address], [place] [address] 18 Aug, 2012 [facility] [address] [id number] [address] [place] [address], [place] [address] 18 Aug, 2012 [facility] [address] [id number] [address] [place] [address], [place] [address] 08 Aug, 2012 [facility] [address] [id number] [address] [place] [address], [place] [address] Aug, [facility] [address] [id number] [address] [place] [address], [place] [address] Jul, [facility] [address] [id number] [address] [place] [address], [place] [address] Jul, [facility] [address] [id number] [address] [place] [address], [place] [address] Jul, [facility] [address] [id number] [address] [place] [address], [place] [address] Jul, [facility] [address] [id number] [address] [place] [address], [place] [address] Jul, [facility] [address] [id number] [address] [place] [address], [place] [address] Jul, [facility] [address] [id number] [address] [place] [address], [place] [address] Jul, [facility] [address] [id number] [address] [place] [address], [place] [address] Jul, [facility] [address] [id number] [address] [place] [address], [place] [address] Jul, [facility] [address] [id number] [address] [place] [address], [place] [address] Jul, [facility] [address] [id number] [address] [place] [address], [place] [address] Jul, [facility] [address] [id number] [address] [place] [address], [place] [address] 06 Jul, 2012 [facility] [address] [id number] [address] [place] [address], [place] [address] Jul, [facility] [address] [id number] [address] [place] [address] 24 Jun, 2012 [facility] [address] [id number] [address] [place] [address], [place] [address] Jun, [facility] [address] [id number] [address] [place] [address], [place] [address] 19 Jun, 2012 [facility] [address] [id number] [address] [place] [address], [place] [address] 17 Jun, 2012 [facility] [address] [id number] [address] [place] [address], [place] [address] 15 Jun, 2012 [facility] [address] [id number] [address] [place] [address], [place] [address] 14 Jun, 2012 [facility] [address] [id number] [address] [place] [address] [address] 08 Jun, 2012 [facility] [address] [id number] [address] [place] [address], [place] [address] May, [facility] [address] [id number] [address] [place] [address], [place] [address] May, [facility] [address] [id number] [address] [place] [address], [place] [address] May, [facility] [address] [id number] [address] [place] [address], [place] [address] May, [facility] [address] [id number] [address] [place] [address], [place] [address] May, [facility] [address] [id number] [address] [place] [address], [place] [address] May, [facility] [address] [id number] [address] [place] [address], [place] [address] May, [facility] [address] [id number] [address] [place] [address], [place] [address] May, [facility] [address] [id number] [address] [place] [address], [place] [address] May, [facility] [address] [id number] [address] [place] [address], [place] [address] May, [facility] [address] [id number] [address] [place] [address], [place] [address] Apr, [facility] [address] [id number] [address] [place] [address], [place] [address] Apr, [facility] [address] [id number] [address] [place] [address], [place] [address] Apr, [facility] [address] [id number] [address] [place] [address], [place] [address] Apr, [facility] [address] [id number] [address] [place] [address], [place] [address] Apr, [facility] [address] [id number] [address] [place] [address], [place] [address] Apr, [facility] [address] [id number] [address] [place] [address], [place] [address] Apr, [facility] [address] [id number] [address] [place] [address], [place] [address] Apr, [facility] [address] [id number] [address] [place] [address], [place] [address] Apr, [facility] [address] [id number] [address] [place] [address], [place] [address] Apr, [facility] [address] [id number] [address] [place] [address], [place] [address] Apr, [facility] [address] [id number] [address] [place] [address], [place] [address] Apr, [facility] [address] [id number] [address] [place] [address], [place] [address] Mar, [facility] [address] [id number] [address] [place] [address], [place] [address] Mar, [facility] [address] [id number] [address] [place] [address], [place] [address] Mar, [facility] [address] [id number] [address] [place] [address], [place] [address] Mar, 2011 [facility] [address] [id number] [address] [place] [address], [place] [address] Mar, [facility] [address] [id number] [address] [place] [address], [place] [address] Mar, [facility] [address] [id number] [address] [place] [address], [place] [address] Mar, [facility] [address] [id number] [address] [place] [address], [place] [address] Mar, [facility] [address] [id number] [address] [place] [address] Mar, [facility] [address] [id number] [address] [place] [address], [place] [address] Mar, [facility] [address] [id number] [address] [place] [address] Mar, [facility] [address] [id number] [address] [place] [address], [place] [address] Mar, [facility] [address] [id number] [address] [place] [address] Mar, [facility] [address] [id number] [address] [place] [address] Mar, [facility] [address] [id number] [address] [place] [address] Mar, [facility] [address] [id number] [address] [place] [address] Mar, [facility] [address] [id number] [address] [place] [address] Jan, [facility] [address] [id number] [address] [place] [address] 24 Jan, 2012 [facility] [address] [id number] [address] [place] [address], [place] [address] 22 Jan, 2011 [facility] [address] [id number] [address] [place] [address], [place] [address] 22 Jan, 2011 [facility] [address] [id number] [address] [place] [address], [place] [address] 21 Jan, 2012 [facility] [address] [id number] [address] [place] [address], [place] [address] 18 Jan, 2012 [facility] [address] [id number] [address] [place] [address], [place] [address] 14 Jan, 2012 [facility] [address] [id number] [address] [place] [address], [place] [address] 07 Jan, 2012 [facility] [address] [id number] [address] [place] [address], [place] [address] 15 Dec, 2011 [facility] [address] [id number] [address] [place] [address], [place] [address] 10 Dec, 2011 [facility] [address] [id number] [address] [place] [address], [place] [address] Dec, [facility] [address] [id number] [address] [place] [address], [place] [address] Dec, [facility] [address] [id number] [address] [place] [address], [place] [address] Dec, [facility] [address] [id number] [address] [place] [address], [place] [address] Dec, [facility] [address] [id number] [address] [place] [address], [place] [address] Dec, [facility] [address] [id number] [address] [place] [address], [place] [address] Nov, [facility] [address] [id number] [address] [place] [address], [place] [address] Oct, [facility] [address] [id number] [address] [place] [address], [place] [address] Aug, [facility] [address] [id number] [address] [place] [address], [place] [address] 22 Jul, 2011 [facility] [address] [id number] [address] [place] [address], [place] [address] 19 Jul, 2011 [facility] [address] [id number] [address] [place] [address], [place] [address] 16 Jul, 2011 [facility] [address] [id number] [address] [place] [address], [place] [address] 14 Jul, 2011 [facility] [address] [id number] [address] [place] [address], [place] [address] 07 Jul, 2011 [facility] [address] [id number] [address] [place] [address], [place] [address] 02 Jul, 2011 [facility] [address] [id number] [address] [place] [address], [place] [address] 21 Jul, 2011 [facility] [address] [id number] [address] [place] [address], [place] [address] 15 Jul, 2011 [facility] [address] [id number] [address] [place] [address], [place] [address] 13 Jul, 2011 [facility] [address] [id number] [address] [place] [address], [place] [address] 03 Jul, 2011 [facility] [address] [id number] [address] [place] [address], [place] [address] 02 Jul, 2011 [facility] [address] [id number] [address] [place] [address], [place] [address] 24 Jun, 2011 [facility] [address] [id number] [address] [place] [address], [place] [address] 24 Jun, 2011 [facility] [address] [id number] [address] [place] [address], [place] [address] 13 Jun, 2011 [facility] [address] [id number] [address] [place] [address], [place] [address] Jun, [facility] [address] [id number] [address] [place] [address], [place] [address] Jun, [facility] [address] [id number] [address] [place] [address], [place] [address] Jun, [facility] [address] [id number] [address] [place] [address], [place] [address] Jun, [facility] [address] [id number] [address] [place] [address], [place] [address] May, [facility] [address] [id number] [address] [place] [address], [place] [address] May, [facility] [address] [id number] [address] [place] [address], [place] [address] May, [facility] [address] [id number] [address] [place] [address], [place] [address] May, [facility] [address] [id number] [address] [place] [address], [place] [address] May, [facility] [address] [id number] [address] [place] [address], [place] [address] May, [facility] [address] [id number] [address] [place] [address], [place] [address] May, [facility] [address] [id number] [address] [place] [address], [place] [address] May, [facility] [address] [id number] [address] [place] [address], [place] [address] May, [facility] [address] [id number] [address] [place] [address], [place] [address] May, [facility] [address] [id number] [address] [place] [address], [place] [address] 15 Apr, 2011 [facility] [address] [id number] [address] [place] [address], [place] [address] 15 Apr, 2011 [facility] [address] [id number] [address] [place] [address], [place] [address] Apr, [facility] [address] [id number] [address] [place] [address] Apr, [facility] [address] [facility] [id number] [address] [place] [address] Mar, [facility] [address] [facility] [id number] [address] [place] [address] Mar, [facility] [address] [facility] [id number] [address] [place] [address] Mar, [facility] [address] [facility] [id number] [address] [place] [address] Mar, IMMUNIZATIONS No Known Immunizations SOCIAL HISTORY [...]
--- OUTSIDE RECORDS SUMMARY | 2020-01-03 18:00 | XMS REPORT ---
Author Author Pattie Moffett Doctor Organization [facility] Address Unknown Phone Unavailable Care Team Providers Care Call Center Associate Name Role Phone Migration, Doctor Unavailable Unavailable PROBLEMS Type Condition ICD9-CM Code [id number] Code Onset Dates Condition S tatus SNOMED Code Problem FRANCIS (generalized anxiety disorder) F41.1 Active 27306514 Problem Thoracic disc herniation M51.24 Activ e 549034336 Problem Major depressive disorder in partial remission F32 .4 Active 70198423 Problem Seizure disorder G40.909 Active 128 476888 Problem Conversion disorder (or hysterical neurosis, conversion ty pe) F44.9 Active 30519079 Problem Constipation, unspecified constipation type K59.00 Active 07139590 Problem Mild episode of recurrent major depressive disorder F33.0 Active 749736572 Problem Restless leg syndrome G25.81 Active 54567773 Problem Nonadherence to medication Z91.14 Act vivian 667290750 Problem Slow transit constipation K59.01 Acti ve 65593803 Problem Atrophic vaginitis N95.2 Active 5 9819128 Problem Paroxysmal tachycardia I47.9 Active 26127520 Problem Other chronic pain G89.29 Active 8 9543194 Problem Mild intermittent asthma without complication J45. 20 Active 748417312 Problem Obesity (BMI 30.0-34.9) E66.9 Active [id number] Problem High blood pressure I10 Active 31056008 ALLERGIES No Information ENCOUNTERS Encounter Location Date Diagnosis [address] [id number] [address] 08 Oct, 2019 Breast cancer screening Z12. 39 [facility] [address] [facility] [id number] [address] [place] [phone] 05 Oct, 2019 [facility] [address] [facility] [id number] [address] [place] [phone] Oct, [facility] [address] [facility] [id number] [address] [place] [phone] September, [facility] [address] [id number] [address] [place] [phone] September, [facility] [address] [id number] [address] [place] [phone] September, Well woman exam with routine gynecological exam Z01.419 and Atrophic vaginitis N95.2 [place] [address] [id number] [address] [place] [phone] September, Major depressive disorder in partial remission F32.4 ; FRANCIS (generalized anxiety disorder) F41.1 ; Restless leg syndrome G25.81 and Nonadherence to medication Z91.14 [place] [address] [id number] [address] [place] [phone] September, [place] [address] [id number] [address] [place] [phone] Aug, [facility] [address] [id number] [address] [place] [id number] Aug, Dental examination Z01.20 [facility] [address] [id number] [address] [place] [id number] 15 Aug, 2019 Dental examination Z01.20 an d Caries K02.9 [facility] [address] [id number] [address] [place] [phone] Aug, [facility] [address] [id number] [address] [place] [phone] Aug, [facility] [address] [id number] [address] [place] [phone] Aug, Other chronic pain G89.29 an d Back muscle spasm M62.830 [facility] [address] [id number] [address] [place] [phone] Aug, [facility] [address] [id number] [address] [place] [phone] Aug, Major depressive disorder in partial remission F32.4 ; FRANCIS (generalized anxiety disorder) F41.1 ; Restless leg syndrome G25.81 and Nonadherence to medication Z91.14 [facility] [address] [id number] [address] [place] [phone] Aug, [facility] [address] [id number] [address] [place] [phone] Jul, [facility] [address] [id number] [address] [place] [phone] Jul, [facility] [address] [id number] [address] [place] [phone] Jul, Major depressive disorder in partial remission F32.4 ; FRANCIS (generalized anxiety disorder) F41.1 ; Restless leg syndrome G25.81 and High blood pressure I10 [facility] [address] [id number] [address] [place] [phone] Jul, [facility] [address] [id number] [address] [place] [phone] Jul, [facility] [address] [id number] [address] [place] [phone] Jun, [facility] [address] [id number] [address] [place] [phone] May, [facility] [address] [id number] [address] [place] [phone] Apr, [facility] [address] [id number] [address] [place] [phone] Apr, [facility] [address] [id number] [address] [place] [phone] Mar, [facility] [address] [id number] [address] [place] [phone] Mar, Major depressive disorder in partial remission F32.4 ; FRANCIS (generalized anxiety disorder) F41.1 and Restless leg syndrome G25.81 [facility] [address] [id number] [address] [place] [phone] Mar, Obesity (BMI 30.0-34.9) E66. 9 [facility] [address] [id number] [address] [place] [phone] Jan, [facility] [address] [id number] [address] [place] [phone] Jan, Burn T30.0 [facility] [address] [id number] [address] [place] [phone] Dec, [facility] [address] [id number] [address] [place] [phone] Nov, [facility] [address] [id number] [address] [place] [phone] Nov, [facility] [address] [id number] [address] [place] [id number] Nov, Dental examination Z01.20 [facility] [address] [id number] [address] [place] [phone] September, [facility] [id number] [place] [id number] September, Decay, teeth K02.9 and Denta l examination Z01.20 [facility] [address] [id number] [address] [place] [id number] September, Dental examination Z01.20 [facility] [address] [facility] [id number] [address] [place] [phone] September, FRANCIS (generalized anxiety dis order) F41.1 ; Major depressive disorder in partial remission F32.4 and Restless leg syndrome G25.81 [facility] [address] [id number] [address] [place] [phone] Aug, [facility] [address] [facility] [id number] [address] [place] [phone] Jul, [facility] [address] [facility] [id number] [address] [place] [phone] Jul, Encounter to discuss test re sults Z71.2 [place] [address] [place] [id number] [address] [place] [id number] Jul, Pelvic pain R10.2 ; Screenin g for breast cancer Z12.31 and Obesity (BMI 30.0-34.9) E66.9 [place] [id number] [place] [id number] Jul, Mild intermittent asthma wit hout complication J45.20 [place] [address] [place] [id number] [place] [phone] Jul, Major depressive disorder in partial remission F32.4 and FRANCIS (generalized anxiety disorder) F41.1 [place] [address] [place] [id number] [place] [phone] Jul, [place] [address] [place] [id number] [place] [phone] Jun, [place] [address] [phone] May, Major depressive disorder in partial remission F32.4 ; FRANCIS (generalized anxiety disorder) F41.1 and Restless leg syndrome G25.81 [place] [address] [place] [id number] [address] [place] [phone] Apr, [place] [address] [place] [id number] [place] [phone] Mar, [facility] [address] [place] [id number] [address] [place] [id number] 21 Jan, 2018 Pain in thoracic spine M54.6 and Other chronic pain G89.29 [place] [address] [place] [id number] [address] [place] [id number] 14 Jan, 2018 [facility] [address] [facility] [id number] [address] [place] [id number] 11 Jan, 2018 Mild episode of recurrent ma saray depressive disorder F33.0 ; FRANCIS (generalized anxiety disorder) F41.1 and Restless leg syndrome G25.81 [facility] [address] [id number] [address] [place] [phone] Dec, [facility] [address] [id number] [address] [place] [id number] Dec, Hospital discharge follow-up Z09 [facility] [address] [id number] [address] [place] [id number] Nov, [facility] [address] [id number] [address] [place] [phone] Nov, [facility] [address] [id number] [address] [place] [phone] September, [facility] [address] [id number] [address] [place] [phone] September, [facility] [address] [id number] [address] [place] [id number] September, Major depressive disorder in partial remission F32.4 ; FRANCIS (generalized anxiety disorder) F41.1 and Restless leg syndrome G25.81 [facility] [address] [id number] [address] [place] [phone] September, [facility] [address] [id number] [address] [place] [id number] Jul, [facility] [address] [id number] [address] [place] [phone] Jul, Dorsalgia, unspecified M54.9 [facility] [address] [id number] [address] [place] [id number] Jul, Mild episode of recurrent ma saray depressive disorder F33.0 and FRANCIS (generalized anxiety disorder) F41.1 [facility] [address] [id number] [address] [place] [phone] May, [facility] [address] [facility] [id number] [address] [place] [id number] May, Dysuria R30.0 and Acute cyst itis with hematuria N30.01 [facility] [address] [id number] [address] [place] [phone] Apr, [facility] [address] [id number] [address] [place] [id number] Apr, Major depressive disorder in partial remission F32.4 and FRANCIS (generalized anxiety disorder) F41.1 [facility] [address] [id number] [address] [place] [phone] Mar, Paroxysmal tachycardia I47.9 [facility] [address] [id number] [address] [place] [id number] Mar, Paroxysmal tachycardia I47.9 and Pain of left lower extremity M79.605 [facility] [address] [id number] [address] [place] [phone] Mar, FRANCIS (generalized anxiety dis order) F41.1 and Major depressive disorder in partial remission F32.4 [facility] [address] [id number] [address] [place] [phone] Jan, [facility] [address] [id number] [address] [place] [id number] 14 Jan, 2017 [facility] [address] [id number] [address] [place] [phone] Jan, [facility] [address] [id number] [address] [place] [id number] Dec, Constipation, unspecified co nstipation type K59.00 [facility] [address] [id number] [address] [place] [phone] Dec, [facility] [address] [id number] [address] [place] [phone] Nov, [facility] [address] [id number] [address] [place] [phone] Nov, Major depressive disorder in partial remission F32.4 and FRANCIS (generalized anxiety disorder) F41.1 [facility] [address] [facility] [id number] [address] [place] [phone] Oct, Abdominal pain R10.9 and Slo w transit constipation K59.01 [place] [address] [facility] [id number] [address] [place] [phone] Aug, Major depressive disorder in partial remission F32.4 ; FRANCIS (generalized anxiety disorder) F41.1 ; Conversion disorder (or hysterical neurosis, conversion type) F44.9 ; Dorsalgia, unspecified M54.9 and Long-term use of high-risk medication Z79.899 [place] [address] [facility] [id number] [address] [place] [phone] Aug, [place] [address] [place] [id number] [place] [id number] Jul, Paroxysmal tachycardia I47.9 [place] [address] [place] [id number] [place] [id number] Jul, Paroxysmal tachycardia I47.9 [place] [address] [place] [id number] [address] [place] [id number] Jun, [place] [address] [place] [id number] [place] [id number] Jun, Major depressive disorder in partial remission F32.4 ; FRANCIS (generalized anxiety disorder) F41.1 and Conversion disorder (or hysterical neurosis, conversion type) F44.9 [facility] [address] [place] [id number] [address] [place] [phone] May, Pelvic pain R10.2 [facility] [place] [address] [place] [id number] [address] [place] [phone] Apr, Gastroenteritis K52.9 [facility] [place] [address] [place] [id number] [address] [place] [phone] Apr, Blood in urine R31.9 and Acu te cystitis with hematuria N30.01 [place] [address] [place] [id number] [place] [id number] Apr, Major depressive disorder in partial remission F32.4 ; FRANCIS (generalized anxiety disorder) F41.1 and Conversion disorder (or hysterical neurosis, conversion type) F44.9 [facility] [address] [id number] [address] [place] [phone] Apr, [facility] [address] [id number] [address] [place] [phone] Apr, Abnormal mammogram R92.8 [facility] [address] [id number] [address] [place] [id number] Mar, [facility] [address] [facility] [id number] [address] [place] [id number] Mar, Gastroenteritis K52.9 and Se izure disorder G40.909 [facility] [address] [id number] [address] [place] [phone] Dec, [facility] [address] [id number] [address] [place] [phone] Dec, Other headache syndrome G44. 89 [facility] [address] [id number] [address] [place] [phone] Dec, [facility] [address] [id number] [address] [place] [phone] Dec, Thoracic disc herniation M51 .24 [facility] [address] [facility] [id number] [address] [place] [phone] Dec, [facility] [address] [id number] [address] [place] [phone] Nov, Major depressive disorder in partial remission F32.4 and FRANCIS (generalized anxiety disorder) F41.1 [facility] [address] [id number] [address] [place] [phone] Nov, [facility] [address] [facility] [id number] [address] [place] [phone] Nov, Dorsalgia, unspecified M54.9 [facility] [address] [id number] [address] [place] [phone] Oct, [facility] [address] [id number] [address] [place] [phone] September, [facility] [address] [id number] [address] [place] [phone] Aug, [facility] [address] [id number] [address] [place] [phone] Aug, Major depressive disorder in partial remission F32.4 and FRANCIS (generalized anxiety disorder) F41.1 [facility] [address] [id number] [address] [place] [phone] Aug, [facility] [address] [id number] [address] [place] [phone] Jul, Abnormal mammogram R92.8 [facility] [address] [id number] [address] [place] [phone] Jul, [facility] [address] [id number] [address] [place] [phone] Jul, [facility] [address] [id number] [address] [place] [phone] Jul, [facility] [address] [id number] [address] [place] [phone] Jul, [facility] [address] [id number] [address] [place] [phone] Jul, [facility] [address] [id number] [address] [place] [phone] Jul, [facility] [address] [id number] [address] [place] [id number] Jun, Major depressive disorder in partial remission F32.4 and FRANCIS (generalized anxiety disorder) F41.1 [facility] [address] [id number] [address] [place] [phone] Jun, [facility] [address] [id number] [address] [place] [phone] May, [facility] [address] [id number] [address] [place] [id number] Apr, [facility] [address] [id number] [address] [place] [phone] Mar, Major depressive disorder, r ecurrent episode, moderate F33.1 ; PTSD (post-traumatic stress disorder) F43.10 and FRANCIS (generalized anxiety disorder) F41.1 [facility] [address] [id number] [address] [place] [id number] Mar, [facility] [address] [id number] [address] [place] [phone] Mar, [facility] [address] [id number] [address] [place] [phone] Mar, [facility] [address] [id number] [address] [place] [phone] Mar, [facility] [address] [id number] [address] [place] [phone] Jan, [facility] [address] [id number] [address] [place] [id number] 15 Jan, 2015 [facility] [address] [id number] [address] [place] [id number] 15 Jan, 2015 [facility] [address] [id number] [address] [place] [id number] 14 Jan, 2015 Thoracic disc herniation 722 .11 [facility] [address] [id number] [address] [place] [phone] Dec, [facility] [address] [id number] [address] [place] [phone] Dec, [facility] [address] [id number] [address] [place] [phone] Dec, [facility] [address] [id number] [address] [place] [id number] 16 Nov, 2014 [facility] [address] [id number] [address] [place] [id number] Nov, Generalized anxiety disorder 300.02 ; Posttraumatic stress disorder 309.81 and Major depressive disorder, recurrent episode, moderate 296.32 [facility] [address] [id number] [address] [place] [phone] Nov, [facility] [address] [id number] [address] [place] [id number] Nov, [facility] [address] [id number] [address] [place] [id number] Oct, [facility] [address] [id number] [address] [place] [phone] Oct, [facility] [address] [id number] [address] [place] [phone] Oct, [facility] [address] [id number] [address] [place] [id number] September, [facility] [address] [id number] [address] [place] [id number] September, [facility] [address] [id number] [address] [place] [id number] Aug, [facility] [address] [id number] [address] [place] [id number] Aug, [facility] [address] [id number] [address] [place] [id number] Jul, [facility] [address] [id number] [address] [place] [id number] Jul, [facility] [address] [id number] [address] [place] [phone] Jul, [facility] [address] [id number] [address] [place] [phone] Jul, [facility] [address] [id number] [address] [place] [address], [place] [id number] Jul, [facility] [address] [id number] [address] [place] [address], [place] [address] Jul, [facility] [address] [id number] [address] [place] [address], [place] [address] Jul, 2014 [facility] [address] [id number] [address] [place] [address], [place] [address] Jul, [facility] [address] [id number] [address] [place] [address], [place] [address] Jul, [facility] [address] [id number] [address] [place] [address], [place] [address] Jul, [facility] [address] [id number] [address] [place] [address], [place] [address] Jun, [facility] [address] [id number] [address] [place] [address], [place] [address] Jun, [facility] [address] [id number] [address] [place] [address], [place] [address] Jun, [facility] [address] [id number] [address] [place] [address], [place] [address] May, [facility] [address] [id number] [address] [place] [address], [place] [address] Apr, [facility] [address] [id number] [address] [place] [address], [place] [address] Apr, [facility] [address] [id number] [address] [place] [address], [place] [address] Apr, [facility] [address] [id number] [address] [place] [address], [place] [address] Apr, [facility] [address] [id number] [address] [place] [address], [place] [address] Apr, [facility] [address] [id number] [address] [place] [address] Apr, [facility] [address] [id number] [address] [place] [address], [place] [address] Apr, [facility] [address] [id number] [address] [place] [address] Apr, [facility] [address] [id number] [address] [place] [address], [place] [address] Mar, [facility] [address] [id number] [address] [place] [address] Mar, [facility] [address] [id number] [address] [place] [address], [place] [address] Mar, [facility] [address] [id number] [address] [place] [address], [place] [address] Mar, [facility] [address] [id number] [address] [place] [address] Mar, [facility] [address] [id number] [address] [place] [address], [place] [address] Mar, [facility] [address] [id number] [address] [place] [address] Mar, [facility] [address] [id number] [address] [place] [address], [place] [address] Mar, [facility] [address] [id number] [address] [place] [address] Mar, [facility] [address] [id number] [address] [place] [address] Mar, [facility] [address] [id number] [address] [place] [address], [place] [address] 17 Mar, 2014 [facility] [address] [id number] [address] [place] [address] 14 Mar, 2014 [facility] [address] [id number] [address] [place] [address], [place] [address] 14 Mar, 2014 [facility] [address] [id number] [address] [place] [address], [place] [address] 07 Mar, 2013 [facility] [address] [id number] [address] [place] [address], [place] [address] 07 Mar, 2013 [facility] [address] [id number] [address] [place] [address], [place] [address] 06 Mar, 2013 [facility] [address] [id number] [address] [place] [address], [place] [address] 06 Oct, 2013 [facility] [address] [id number] [address] [place] [address], [place] [address] 19 Sep, 2013 [facility] [address] [id number] [address] [place] [address], [place] [address] 19 Sep, 2013 [facility] [address] [id number] [address] [place] [address], [place] [address] 09 Sep, 2013 [facility] [address] [id number] [address] [place] [address], [place] [address] 09 Sep, 2013 [facility] [address] [id number] [address] [place] [address], [place] [address] 05 Sep, 2013 [facility] [address] [id number] [address] [place] [address], [place] [address] 05 Sep, 2013 [facility] [address] [id number] [address] [place] [address], [place] [address] 05 Sep, 2013 [facility] [address] [id number] [address] [place] [address], [place] [address] 05 Sep, 2013 [facility] [address] [id number] [address] [place] [address], [place] [address] 03 Sep, 2013 [facility] [address] [id number] [address] [place] [address], [place] [address] 02 Sep, 2013 [facility] [address] [id number] [address] [place] [address], [place] [address] 02 Sep, 2013 [facility] [address] [id number] [address] [place] [address], [place] [address] Jan, [facility] [address] [id number] [address] [place] [address], [place] [address] Jan, [facility] [address] [id number] [address] [place] [address], [place] [address] Dec, [facility] [address] [id number] [address] [place] [address], [place] [address] Dec, [facility] [address] [id number] [address] [place] [address], [place] [address] Dec, [facility] [address] [id number] [address] [place] [address], [place] [address] Dec, [facility] [address] [id number] [address] [place] [address], [place] [address] Dec, [facility] [address] [id number] [address] [place] [address], [place] [address] Dec, [facility] [address] [facility] [place] [id number] Dec, [facility] [address] [place] [id number] Dec, [facility] [address] [id number] [address] [place] [address], [place] [address] Dec, [facility] [address] [id number] [address] [place] [address], [place] [address] Dec, [facility] [address] [id number] [address] [place] [address], [place] [address] Dec, [facility] [address] [id number] [address] [place] [address], [place] [address] Dec, [facility] [address] [id number] [address] [place] [address], [place] [address] Nov, [facility] [address] [id number] [address] [place] [address], [place] [address] Nov, [facility] [address] [id number] [address] [place] [address], [place] [address] Nov, [facility] [address] [id number] [address] [place] [address], [place] [address] Nov, [facility] [address] [id number] [address] [place] [address], [place] [address] Nov, [facility] [address] [id number] [address] [place] [address], [place] [address] Nov, [facility] [address] [id number] [address] [place] [address], [place] [address] Nov, [facility] [address] [id number] [address] [place] [address], [place] [address] Nov, [facility] [address] [id number] [address] [place] [address], [place] [address] Nov, [facility] [address] [id number] [address] [place] [address], [place] [address] Nov, [facility] [address] [id number] [address] [place] [address], [place] [address] Nov, [facility] [address] [id number] [address] [place] [address], [place] [address] Nov, [facility] [address] [id number] [address] [place] [address], [place] [address] Nov, [facility] [address] [id number] [address] [place] [address], [place] [address] Oct, [facility] [address] [id number] [address] [place] [address], [place] [address] Oct, [facility] [address] [id number] [address] [place] [address], [place] [address] Oct, [facility] [address] [id number] [address] [place] [address], [place] [address] Oct, [facility] [address] [id number] [address] [place] [address], [place] [address] Oct, [facility] [address] [id number] [address] [place] [address], [place] [address] Oct, [facility] [address] [id number] [facility] [place] [address] Oct, [facility] [address] [id number] [address] [place] [address], [place] [address] Oct, [facility] [address] [id number] [address] [place] [address], [place] [address] Oct, [facility] [address] [id number] [address] [place] [address], [place] [address] Oct, [facility] [address] [id number] [address] [place] [address], [place] [address] Oct, [facility] [address] [id number] [address] [place] [address], [place] [address] Oct, [facility] [address] [id number] [address] [place] [address], [place] [address] September, [facility] [address] [id number] [address] [place] [address], [place] [address] September, [facility] [address] [id number] [address] [place] [address], [place] [address] September, [facility] [address] [id number] [address] [place] [address], [place] [address] September, [facility] [address] [id number] [address] [place] [address], [place] [address] Aug, [facility] [address] [id number] [address] [place] [address], [place] [address] Aug, [facility] [address] [id number] [address] [place] [address], [place] [address] Aug, [facility] [address] [id number] [address] [place] [address], [place] [address] Aug, [facility] [address] [id number] [address] [place] [address], [place] [address] Aug, [facility] [address] [id number] [address] [place] [address], [place] [address] 10 Aug, 2013 [facility] [address] [id number] [address] [place] [address], [place] [address] 10 Aug, 2013 [facility] [address] [id number] [address] [place] [address], [place] [address] 28 Jul, 2013 [facility] [address] [id number] [address] [place] [address], [place] [address] Jul, [facility] [address] [id number] [address] [place] [address], [place] [address] Jul, [facility] [address] [id number] [address] [place] [address], [place] [address] Jul, [facility] [address] [id number] [address] [place] [address], [place] [address] 19 Jul, 2013 [facility] [address] [id number] [address] [place] [address], [place] [address] 19 Jul, 2013 [facility] [address] [id number] [address] [place] [address], [place] [address] 18 Jul, 2013 [facility] [address] [id number] [address] [place] [address], [place] [address] 18 Jul, 2013 [facility] [address] [id number] [address] [place] [address], [place] [address] 18 Jul, 2013 [facility] [address] [id number] [address] [place] [address], [place] [address] 18 Jul, 2013 [facility] [address] [id number] [address] [place] [address], [place] [address] 18 Jul, 2013 [facility] [address] [id number] [address] [place] [address], [place] [address] 18 Jul, 2013 [facility] [address] [id number] [address] [place] [address], [place] [address] 14 Jul, 2013 [facility] [address] [id number] [address] [place] [address], [place] [address] 14 Jul, 2013 [facility] [address] [id number] [address] [place] [address], [place] [address] Jul, [facility] [address] [id number] [address] [place] [address], [place] [address] Jul, [facility] [address] [id number] [address] [place] [address], [place] [address] Jul, [facility] [address] [id number] [address] [place] [address], [place] [address] Jul, [facility] [address] [id number] [address] [place] [address], [place] [address] Jun, [facility] [address] [id number] [address] [place] [address], [place] [address] Jun, [facility] [address] [id number] [address] [place] [address], [place] [address] Jun, [facility] [address] [id number] [address] [place] [address], [place] [address] 15 Jun, 2013 [facility] [address] [id number] [address] [place] [address], [place] [address] Jun, [facility] [address] [id number] [address] [place] [address], [place] [address] 14 Jun, 2013 [facility] [address] [id number] [address] [place] [address], [place] [address] 14 Jun, 2013 [facility] [address] [id number] [address] [place] [address] 14 Jun, 2013 [facility] [address] [id number] [address] [place] [address], [place] [address] 14 Jun, 2013 [facility] [address] [id number] [address] [place] [address], [place] [address] 14 Jun, 2013 [facility] [address] [id number] [address] [place] [address], [place] [address] May, [facility] [address] [id number] [address] [place] [address], [place] [address] 27 May, 2012 [facility] [address] [id number] [address] [place] [address], [place] [address] 26 May, 2013 [facility] [address] [id number] [address] [place] [address], [place] [address] 19 May, 2013 [facility] [address] [id number] [address] [place] [address], [place] [address] 19 May, 2013 [facility] [address] [id number] [address] [place] [address], [place] [address] 16 May, 2013 [facility] [address] [id number] [address] [place] [address], [place] [address] 16 May, 2013 [facility] [address] [id number] [address] [place] [address], [place] [address] 16 May, 2013 [facility] [address] [id number] [address] [place] [address], [place] [address] 16 May, 2013 [facility] [address] [id number] [address] [place] [address], [place] [address] 13 May, 2013 [facility] [address] [id number] [address] [place] [address], [place] [address] 13 May, 2013 [facility] [address] [id number] [address] [place] [address], [place] [address] 11 May, 2013 [facility] [address] [id number] [address] [place] [address], [place] [address] 20 Apr, 2013 [facility] [address] [id number] [address] [place] [address], [place] [address] 18 Apr, 2013 [facility] [address] [id number] [address] [place] [address], [place] [address] 18 Apr, 2013 [facility] [address] [id number] [address] [place] [address], [place] [address] 13 Apr, 2013 [facility] [address] [id number] [address] [place] [address] [address] Apr, [facility] [address] [id number] [address] [place] [address], [place] [address] 08 Apr, 2013 [facility] [address] [id number] [address] [place] [address], [place] [address] 08 Apr, 2013 [facility] [address] [id number] [address] [place] [address], [place] [address] Apr, [facility] [address] [id number] [address] [place] [address], [place] [address] Apr, [facility] [address] [id number] [address] [place] [address], [place] [address] Apr, [facility] [address] [id number] [address] [place] [address], [place] [address] Apr, [facility] [address] [id number] [address] [place] [address], [place] [address] Mar, [facility] [address] [id number] [address] [place] [address] Mar, [facility] [address] [id number] [address] [place] [address] Mar, [facility] [address] [id number] [address] [place] [address] Mar, [facility] [address] [id number] [address] [place] [address] Mar, [facility] [address] [id number] [address] [place] [address] Mar, [facility] [address] [id number] [address] [place] [address], [place] [address] Mar, [facility] [address] [id number] [address] [place] [address] Mar, [facility] [address] [id number] [address] [place] [address] Mar, [facility] [address] [id number] [address] [place] [address], [place] [address] 15 Mar, 2013 [facility] [address] [id number] [address] [place] [address], [place] [address] 15 Mar, 2013 [facility] [address] [id number] [address] [place] [address], [place] [address] Mar, [facility] [address] [id number] [address] [place] [address], [place] [address] 30 Jan, 2013 [facility] [address] [id number] [address] [place] [address], [place] [address] 25 Jan, 2013 [facility] [address] [id number] [address] [place] [address], [place] [address] Jan, [facility] [address] [id number] [address] [place] [address], [place] [address] Jan, [facility] [address] [id number] [address] [place] [address], [place] [address] Dec, [facility] [address] [id number] [address] [place] [address], [place] [address] Dec, [facility] [address] [id number] [address] [place] [address], [place] [address] Dec, [facility] [address] [id number] [address] [place] [address], [place] [address] Dec, [facility] [address] [id number] [address] [place] [address], [place] [address] Dec, [facility] [address] [id number] [address] [place] [address], [place] [address] Dec, [facility] [address] [id number] [address] [place] [address], [place] [address] Dec, [facility] [address] [id number] [address] [place] [address], [place] [address] Dec, [facility] [address] [id number] [address] [place] [address], [place] [address] Dec, [facility] [address] [id number] [address] [place] [address], [place] [address] Nov, [facility] [address] [id number] [address] [place] [address], [place] [address] Nov, [facility] [address] [id number] [address] [place] [address], [place] [address] Nov, [facility] [address] [id number] [address] [place] [address], [place] [address] Nov, [facility] [address] [id number] [address] [place] [address], [place] [address] Nov, [facility] [address] [id number] [address] [place] [address], [place] [address] Nov, [facility] [address] [id number] [address] [place] [address], [place] [address] Nov, [facility] [address] [id number] [address] [place] [address], [place] [address] Nov, [facility] [address] [id number] [address] [place] [address], [place] [address] Oct, [facility] [address] [id number] [address] [place] [address], [place] [address] Oct, [facility] [address] [id number] [address] [place] [address], [place] [address] Oct, [facility] [address] [id number] [address] [place] [address], [place] [address] Oct, [facility] [address] [id number] [address] [place] [address], [place] [address] Oct, [facility] [address] [id number] [address] [place] [address], [place] [address] Oct, [facility] [address] [id number] [address] [place] [address], [place] [address] Oct, [facility] [address] [id number] [address] [place] [address], [place] [address] 20 Oct, 2012 [facility] [address] [id number] [address] [place] [address], [place] [address] 19 Oct, 2012 [facility] [address] [id number] [address] [place] [address], [place] [address] 18 Oct, 2012 [facility] [address] [id number] [address] [place] [address], [place] [address] 17 Oct, 2012 [facility] [address] [id number] [address] [place] [address], [place] [address] 14 Oct, 2012 [facility] [address] [id number] [address] [place] [address], [place] [address] 07 Oct, 2012 [facility] [address] [id number] [address] [place] [address], [place] [address] 30 Sep, 2012 [facility] [address] [id number] [address] [place] [address], [place] [address] September, [facility] [address] [id number] [address] [place] [address], [place] [address] September, [facility] [address] [id number] [address] [place] [address], [place] [address] 25 Aug, 2012 [facility] [address] [id number] [address] [place] [address], [place] [address] 24 Aug, 2012 [facility] [address] [id number] [address] [place] [address], [place] [address] 18 Aug, 2012 [facility] [address] [id number] [address] [place] [address], [place] [address] 18 Aug, 2012 [facility] [address] [id number] [address] [place] [address], [place] [address] 18 Aug, 2012 [facility] [address] [id number] [address] [place] [address], [place] [address] 08 Aug, 2012 [facility] [address] [id number] [address] [place] [address], [place] [address] 05 Aug, 2012 [facility] [address] [id number] [address] [place] [address], [place] [address] Jul, [facility] [address] [id number] [address] [place] [address], [place] [address] Jul, [facility] [facility] [address] [id number] [address] [place] [address], [place] [address] Jul, [facility] [address] [id number] [address] [place] [address], [place] [address] Jul, [facility] [address] [id number] [address] [place] [address], [place] [address] Jul, [facility] [address] [id number] [address] [place] [address], [place] [address] Jul, [facility] [address] [id number] [address] [place] [address], [place] [address] Jul, [facility] [address] [id number] [address] [place] [address], [place] [address] Jul, [facility] [address] [id number] [address] [place] [address], [place] [address] Jul, [facility] [address] [id number] [address] [place] [address], [place] [address] Jul, [facility] [address] [id number] [address] [place] [address], [place] [address] Jul, [facility] [address] [id number] [address] [place] [address], [place] [address] Jul, [facility] [address] [id number] [address] [place] [address], [place] [address] Jul, [facility] [address] [id number] [address] [place] [address], [place] [address] Jun, [facility] [address] [id number] [address] [place] [address], [place] [address] Jun, [facility] [address] [id number] [address] [place] [address], [place] [address] 19 Jun, 2012 [facility] [address] [id number] [address] [place] [address], [place] [address] 17 Jun, 2012 [facility] [address] [id number] [address] [place] [address], [place] [address] 15 Jun, 2012 [facility] [address] [id number] [address] [place] [address], [place] [address] 14 Jun, 2012 [facility] [address] [id number] [address] [place] [address], [place] [address] 08 Jun, 2012 [facility] [address] [id number] [address] [place] [address], [place] [address] 28 May, 2012 [facility] [address] [id number] [address] [place] [address], [place] [address] May, [facility] [address] [id number] [address] [place] [address], [place] [address] May, [facility] [address] [id number] [address] [place] [address], [place] [address] May, [facility] [address] [id number] [address] [place] [address], [place] [address] May, [facility] [address] [id number] [address] [place] [address], [place] [address] May, [facility] [address] [id number] [address] [place] [address], [place] [address] May, [facility] [address] [id number] [address] [place] [address], [place] [address] May, [facility] [address] [id number] [address] [place] [address], [place] [address] May, [facility] [address] [id number] [address] [place] [address], [place] [address] May, [facility] [address] [id number] [address] [place] [address], [place] [address] 30 Apr, 2012 [facility] [address] [id number] [address] [place] [address], [place] [address] Apr, [facility] [address] [id number] [address] [place] [address], [place] [address] Apr, [facility] [address] [id number] [address] [place] [address], [place] [address] Apr, [facility] [address] [id number] [address] [place] [address], [place] [address] Apr, [facility] [address] [id number] [address] [place] [address], [place] [address] Apr, [facility] [address] [id number] [address] [place] [address], [place] [address] Apr, [facility] [address] [id number] [address] [place] [address], [place] [address] Apr, [facility] [address] [id number] [address] [place] [address], [place] [address] Apr, [facility] [address] [id number] [address] [place] [address], [place] [address] Apr, [facility] [address] [id number] [address] [place] [address], [place] [address] Apr, [facility] [address] [id number] [address] [place] [address], [place] [address] Apr, [facility] [address] [id number] [address] [place] [address], [place] [address] Mar, [facility] [address] [id number] [address] [place] [address], [place] [address] Mar, [facility] [address] [id number] [address] [place] [address], [place] [address] Mar, [facility] [address] [id number] [address] [place] [address], [place] [address] Mar, [facility] [address] [id number] [address] [place] [address], [place] [address] Mar, [facility] [address] [id number] [address] [place] [address], [place] [address] Mar, [facility] [address] [id number] [address] [place] [address], [place] [address] Mar, [facility] [address] [id number] [address] [place] [address], [place] [address] Mar, [facility] [address] [id number] [address] [place] [address], [place] [address] Mar, [facility] [address] [id number] [address] [place] [address], [place] [address] Mar, [facility] [address] [id number] [address] [place] [address], [place] [address] Mar, [facility] [address] [id number] [address] [place] [address], [place] [address] Mar, [facility] [address] [id number] [address] [place] [address] Mar, [facility] [address] [id number] [address] [place] [address], [place] [address] Mar, [facility] [address] [id number] [address] [place] [address] Mar, [facility] [address] [id number] [address] [place] [address] Mar, [facility] [address] [id number] [address] [place] [address] 25 Jan, 2012 [facility] [address] [id number] [address] [place] [address], [place] [address] 24 Sep2011 [facility] [address] [id number] [address] [place] [address] 22 Jan, 2012 [facility] [address] [id number] [address] [place] [address] 22 Jan, 2012 [facility] [address] [id number] [address] [place] [address] 21 Jan, 2012 [facility] [address] [id number] [address] [place] [address], [place] [address] 18 Jan, 2012 [facility] [address] [id number] [address] [place] [address], [place] [address] 14 Jan, 2012 [facility] [address] [id number] [address] [place] [address], [place] [address] 07 Jan, 2012 [facility] [address] [id number] [address] [place] [address], [place] [address] 15 Dec, 2011 [facility] [address] [id number] [address] [place] [address], [place] [address] 10 Dec, 2011 [facility] [address] [id number] [address] [place] [address], [place] [address] Dec, [facility] [address] [id number] [address] [place] [address], [place] [address] Dec, [facility] [address] [id number] [address] [place] [address], [place] [address] Dec, [facility] [address] [id number] [address] [place] [address], [place] [address] Dec, [facility] [address] [id number] [address] [place] [address], [place] [address] Dec, [facility] [address] [id number] [address] [place] [address], [place] [address] Nov, [facility] [address] [id number] [address] [place] [address], [place] [address] Oct, [facility] [address] [id number] [address] [place] [address], [place] [address] Aug, [facility] [address] [id number] [address] [place] [address], [place] [address] Jul, [facility] [address] [id number] [address] [place] [address], [place] [address] Jul, [facility] [address] [id number] [address] [place] [address], [place] [address] 16 Jul, 2011 [facility] [address] [id number] [address] [place] [address], [place] [address] 14 Jul, 2011 [facility] [address] [id number] [address] [place] [address], [place] [address] 07 Jul, 2011 [facility] [address] [id number] [address] [place] [address], [place] [address] 02 Jul, 2011 [facility] [address] [id number] [address] [place] [address], [place] [address] 21 Jul, 2011 [facility] [address] [id number] [address] [place] [address], [place] [address] 15 Jul, 2011 [facility] [address] [id number] [address] [place] [address], [place] [address] 13 Jul, 2011 [facility] [address] [id number] [address] [place] [address], [place] [address] 03 Jul, 2011 [facility] [address] [id number] [address] [place] [address], [place] [address] 02 Jul, 2011 [facility] [address] [id number] [address] [place] [address], [place] [address] 24 Jun, 2011 [facility] [address] [id number] [address] [place] [address], [place] [address] 24 Jun, 2011 [facility] [address] [id number] [address] [place] [address], [place] [address] Jun, [facility] [address] [id number] [address] [place] [address], [place] [address] Jun, [facility] [address] [id number] [address] [place] [address], [place] [address] Jun, [facility] [address] [id number] [address] [place] [address], [place] [address] 05 Jun, 2011 [facility] [address] [id number] [address] [place] [address] Jun, [facility] [address] [id number] [address] [place] [address], [place] [address] May, [facility] [address] [id number] [address] [place] [address], [place] [address] May, [facility] [address] [id number] [address] [place] [address], [place] [address] May, [facility] [address] [id number] [address] [place] [address], [place] [address] May, [facility] [address] [id number] [address] [place] [address], [place] [address] May, [facility] [address] [id number] [address] [place] [address], [place] [address] May, [facility] [address] [id number] [address] [place] [address], [place] [address] May, [facility] [address] [id number] [address] [place] [address], [place] [address] May, [facility] [address] [id number] [address] [place] [address], [place] [address] May, [facility] [address] [id number] [address] [place] [address], [place] [address] May, [facility] [address] [id number] [address] [place] [address] Apr, [facility] [address] [id number] [address] [place] [address] Apr, [facility] [address] [id number] [address] [place] [address], [place] [address] Apr, [facility] [address] [id number] [address] [place] [address], [place] [address] Apr, [facility] [address] [id number] [address] [place] [address], [place] [address] Mar, [facility] [address] [id number] [address] [place] [address] Mar, [facility] [address] [facility] [id number] [address] [address] Mar, [facility] [address] [facility] [id number] [address] [place] [address] Mar, IMMUNIZATIONS No Known Immunizations SOCIAL HISTORY [...]
--- OUTSIDE RECORDS SUMMARY | 2020-01-03 18:00 | XMS REPORT ---
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 Role Phone REYNALDO VIEIRA Unavailable PROBLEMS Type Condition ICD9-CM Code [id number] Code Onset Dates Condition S tatus SNOMED Code Problem FRANCIS (generalized anxiety disorder) F41.1 Active 92549638 Problem Thoracic disc herniation M51.24 Activ e 918591168 Problem Major depressive disorder in partial remission F32 .4 Active 01559197 Problem Seizure disorder G40.909 Active 128 556788 Problem Conversion disorder (or hysterical neurosis, conversion ty pe) F44.9 Active 90981321 Problem Constipation, unspecified constipation type K59.00 Active 99487560 Problem Mild episode of recurrent major depressive disorder F33.0 Active 488555106 Problem Restless leg syndrome G25.81 Active 91066789 Problem Nonadherence to medication Z91.14 Act vivian 491862242 Problem Slow transit constipation K59.01 Acti ve 91564352 Problem Atrophic vaginitis N95.2 Active 5 2362000 Problem Paroxysmal tachycardia I47.9 Active 29188040 Problem Other chronic pain G89.29 Active 8 5921281 Problem Mild intermittent asthma without complication J45. 20 Active 868843120 Problem Obesity (BMI 30.0-34.9) E66.9 Active [id number] Problem High blood pressure I10 Active 96864305 ALLERGIES No Information ENCOUNTERS Encounter Location Date Diagnosis [address] [id number] [address] 08 Oct, 2019 Breast cancer screening Z12. 39 [facility] [address] [facility] [id number] [address] [place] [id number] 05 Oct, 2019 [facility] [address] [facility] [id number] [address] [place] [id number] 01 Oct, 2019 [facility] [address] [id number] [address] [place] [id number] September, [facility] [address] [id number] [address] [place] [phone] September, [facility] [address] [facility] [id number] [address] [place] [id number] September, Well woman exam with routine gynecological exam Z01.419 and Atrophic vaginitis N95.2 [facility] [address] [facility] [id number] [address] [place] [address] September, Major depressive disorder in partial remission F32.4 ; FRANCIS (generalized anxiety disorder) F41.1 ; Restless leg syndrome G25.81 and Nonadherence to medication Z91.14 [facility] [address] [facility] [id number] [address] [place] [phone] September, [facility] [address] [facility] [id number] [address] [place] [phone] Aug, [facility] [id number] [place] [id number] Aug, Dental examination Z01.20 [facility] [address] [id number] 15 Aug, 2019 Dental examination Z01.20 an d Caries K02.9 [facility] [address] [facility] [id number] [address] [place] [id number] Aug, [facility] [address] [id number] [address] [place] [id number] Aug, [facility] [address] [facility] [id number] [address] [place] [id number] Aug, Other chronic pain G89.29 an d Back muscle spasm M62.830 [facility] [address] [facility] [id number] [address] [place] [id number] Aug, [facility] [address] [facility] [id number] [address] [place] [phone] Aug, Major depressive disorder in partial remission F32.4 ; FRANCIS (generalized anxiety disorder) F41.1 ; Restless leg syndrome G25.81 and Nonadherence to medication Z91.14 [facility] [address] [id number] [address] [place] [id number] Aug, [facility] [address] [id number] [address] [place] [id number] Jul, [facility] [address] [id number] [address] [place] [id number] Jul, [facility] [address] [id number] [address] [place] [id number] Jul, Major depressive disorder in partial remission F32.4 ; FRANCIS (generalized anxiety disorder) F41.1 ; Restless leg syndrome G25.81 and High blood pressure I10 [facility] [address] [id number] [address] [place] [id number] Jul, [facility] [address] [id number] [address] [place] [id number] Jul, [facility] [address] [id number] [address] [place] [id number] Jun, [facility] [address] [id number] [address] [place] [phone] May, [facility] [address] [facility] [id number] [address] [place] [phone] Apr, [facility] [address] [id number] [address] [place] [id number] Apr, [facility] [address] [id number] [address] [place] [id number] Mar, [facility] [address] [facility] [id number] [address] [place] [phone] Mar, Major depressive disorder in partial remission F32.4 ; FRANCIS (generalized anxiety disorder) F41.1 and Restless leg syndrome G25.81 [facility] [address] [id number] [address] [place] [phone] Mar, Obesity (BMI 30.0-34.9) E66. 9 [facility] [address] [id number] [address] [place] [phone] Jan, [facility] [address] [id number] [address] [place] [phone] Jan, Burn T30.0 [facility] [address] [id number] [address] [place] [id number] Dec, [facility] [address] [id number] [address] [place] [id number] Nov, [facility] [address] [facility] [id number] [address] [place] [id number] Nov, [facility] [id number] [place] [address] [id number] Nov, Dental examination Z01.20 [facility] [address] [id number] [address] [place] [id number] September, [facility] [address] [id number] September, Decay, teeth K02.9 and Denta l examination Z01.20 [facility] [id number] [place] [id number] September, Dental examination Z01.20 [facility] [address] [id number] [address] [place] [id number] September, FRANCIS (generalized anxiety dis order) F41.1 ; Major depressive disorder in partial remission F32.4 and Restless leg syndrome G25.81 [facility] [address] [facility] [id number] [address] [place] [phone] Aug, [facility] [address] [facility] [id number] [address] [place] [phone] Jul, [facility] [id number] [place] [phone] Jul, Encounter to discuss test re sults Z71.2 [place] [address] [place] [address] [id number] [place] [phone] Jul, Pelvic pain R10.2 ; Screenin g for breast cancer Z12.31 and Obesity (BMI 30.0-34.9) E66.9 [place] [address] [address] Jul, Mild intermittent asthma wit hout complication J45.20 [place] [address] [place] [id number] [place] [id number] Jul, Major depressive disorder in partial remission F32.4 and FRANCIS (generalized anxiety disorder) F41.1 [place] [address] [address] Jul, [place] [address] [place] [id number] [place] [address] Jun, [place] [address] [address] May, Major depressive disorder in partial remission F32.4 ; FRANCIS (generalized anxiety disorder) F41.1 and Restless leg syndrome G25.81 [place] [address] [place] [id number] [address] [place] [id number] Apr, [facility] [address] [id number] [address] [place] [id number] Mar, [facility] [address] [id number] [address] [place] [id number] 21 Jan, 2018 Pain in thoracic spine M54.6 and Other chronic pain G89.29 [facility] [address] [id number] [address] [place] [id number] 14 Jan, 2018 [facility] [address] [id number] [address] [place] [id number] 11 Jan, 2018 Mild episode of recurrent ma saray depressive disorder F33.0 ; FRANCIS (generalized anxiety disorder) F41.1 and Restless leg syndrome G25.81 [facility] [address] [id number] [address] [place] [id number] Dec, [facility] [address] [id number] [address] [place] [id number] Dec, Hospital discharge follow-up Z09 [facility] [address] [id number] [address] [place] [id number] Nov, [facility] [address] [id number] [address] [place] [id number] Nov, [facility] [address] [id number] [address] [place] [phone] September, [facility] [address] [id number] [address] [place] [id number] September, [facility] [address] [id number] [address] [place] [id number] September, Major depressive disorder in partial remission F32.4 ; FRANCIS (generalized anxiety disorder) F41.1 and Restless leg syndrome G25.81 [facility] [address] [id number] [address] [place] [id number] September, [facility] [address] [id number] [address] [place] [id number] Jul, [facility] [address] [id number] [address] [place] [id number] Jul, Dorsalgia, unspecified M54.9 [facility] [address] [id number] [address] [place] [id number] Jul, Mild episode of recurrent ma saray depressive disorder F33.0 and FRANCIS (generalized anxiety disorder) F41.1 [facility] [address] [id number] [address] [place] [id number] May, [facility] [address] [id number] [address] [place] [id number] May, Dysuria R30.0 and Acute cyst itis with hematuria N30.01 [facility] [address] [id number] [address] [place] [id number] Apr, [facility] [address] [facility] [id number] [address] [place] [id number] Apr, Major depressive disorder in partial remission F32.4 and FRANCIS (generalized anxiety disorder) F41.1 [facility] [address] [id number] [address] [place] [id number] Mar, Paroxysmal tachycardia I47.9 [place] [address] [facility] [id number] [address] [place] [id number] Mar, Paroxysmal tachycardia I47.9 and Pain of left lower extremity M79.605 [place] [address] [place] [id number] [address] [place] [id number] Mar, FRANCIS (generalized anxiety dis order) F41.1 and Major depressive disorder in partial remission F32.4 [facility] [address] [facility] [id number] [address] [place] [phone] Jan, [facility] [address] [facility] [id number] [address] [place] [phone] Jan, [facility] [address] [id number] [address] [place] [id number] Jan, [facility] [address] [id number] [address] [place] [id number] Dec, Constipation, unspecified co nstipation type K59.00 [facility] [address] [id number] [address] [place] [id number] Dec, [facility] [address] [facility] [id number] [address] [place] [phone] Nov, [facility] [address] [facility] [id number] [address] [place] [id number] Nov, Major depressive disorder in partial remission F32.4 and FRANCIS (generalized anxiety disorder) F41.1 [facility] [address] [id number] [address] [place] [phone] Oct, Abdominal pain R10.9 and Slo w transit constipation K59.01 [facility] [address] [facility] [id number] [address] [place] [phone] Aug, Major depressive disorder in partial remission F32.4 ; FRANCIS (generalized anxiety disorder) F41.1 ; Conversion disorder (or hysterical neurosis, conversion type) F44.9 ; Dorsalgia, unspecified M54.9 and Long-term use of high-risk medication Z79.899 [place] [address] [facility] [id number] [address] [place] [id number] Aug, [place] [address] [facility] [id number] [address] [place] [id number] Jul, Paroxysmal tachycardia I47.9 [facility] [address] [facility] [id number] [address] [place] [id number] Jul, Paroxysmal tachycardia I47.9 [place] [address] [facility] [id number] [address] [place] [phone] Jun, [facility] [address] [facility] [id number] [address] [place] [id number] Jun, Major depressive disorder in partial remission F32.4 ; FRANCIS (generalized anxiety disorder) F41.1 and Conversion disorder (or hysterical neurosis, conversion type) F44.9 [facility] [address] [id number] [address] [place] [phone] May, Pelvic pain R10.2 [facility] [address] [facility] [id number] [address] [place] [phone] 30 Apr, 2016 Gastroenteritis K52.9 [facility] [address] [facility] [id number] [address] [place] [id number] 17 Apr, 2016 Blood in urine R31.9 and Acu te cystitis with hematuria N30.01 [facility] [address] [id number] [address] [place] [id number] 17 Apr, 2016 Major depressive disorder in partial remission F32.4 ; FRANCIS (generalized anxiety disorder) F41.1 and Conversion disorder (or hysterical neurosis, conversion type) F44.9 [facility] [address] [id number] [address] [place] [phone] Apr, [facility] [address] [id number] [address] [place] [id number] Apr, Abnormal mammogram R92.8 [facility] [address] [id number] [address] [place] [id number] Mar, [facility] [address] [id number] [address] [place] [id number] Mar, Gastroenteritis K52.9 and Se izure disorder G40.909 [facility] [address] [id number] [address] [place] [id number] Dec, [facility] [address] [id number] [address] [place] [id number] Dec, Other headache syndrome G44. 89 [facility] [address] [id number] [address] [place] [id number] Dec, [facility] [address] [id number] [address] [place] [id number] Dec, Thoracic disc herniation M51 .24 [facility] [address] [id number] [address] [place] [id number] Dec, [facility] [address] [id number] [address] [place] [phone] Nov, Major depressive disorder in partial remission F32.4 and FRANCIS (generalized anxiety disorder) F41.1 [facility] [address] [id number] [address] [place] [id number] Nov, [facility] [address] [id number] [address] [place] [id number] Nov, Dorsalgia, unspecified M54.9 [facility] [address] [id number] [address] [place] [phone] Oct, [facility] [address] [id number] [address] [place] [id number] September, [facility] [address] [id number] [address] [place] [id number] Aug, [facility] [address] [id number] [address] [place] [id number] Aug, Major depressive disorder in partial remission F32.4 and FRANCIS (generalized anxiety disorder) F41.1 [facility] [address] [id number] [address] [place] [phone] Aug, [facility] [address] [id number] [address] [place] [id number] Jul, Abnormal mammogram R92.8 [facility] [address] [id number] [address] [place] [id number] Jul, [facility] [address] [id number] [address] [place] [id number] Jul, [facility] [address] [id number] [address] [place] [id number] Jul, [facility] [address] [id number] [address] [place] [id number] Jul, [facility] [address] [id number] [address] [place] [id number] Jul, [facility] [address] [id number] [address] [place] [id number] Jul, [facility] [address] [id number] [address] [place] [id number] Jun, Major depressive disorder in partial remission F32.4 and FRANCIS (generalized anxiety disorder) F41.1 [facility] [address] [id number] [address] [place] [id number] 08 Jun, 2015 [facility] [address] [id number] [address] [place] [id number] May, [facility] [address] [id number] [address] [place] [id number] Apr, [facility] [address] [id number] [address] [place] [id number] Mar, Major depressive disorder, r ecurrent episode, moderate F33.1 ; PTSD (post-traumatic stress disorder) F43.10 and FRANCIS (generalized anxiety disorder) F41.1 [facility] [address] [id number] [address] [place] [id number] Mar, [facility] [address] [id number] [address] [place] [id number] Mar, [facility] [address] [id number] [address] [place] [id number] Mar, [facility] [address] [id number] [address] [place] [id number] Mar, [facility] [address] [id number] [address] [place] [id number] 23 Jan, 2015 [facility] [address] [id number] [address] [place] [id number] 15 Jan, 2015 [facility] [address] [id number] [address] [place] [id number] 15 Jan, 2015 [facility] [address] [id number] [address] [place] [id number] 14 Jan, 2015 Thoracic disc herniation 722 .11 [facility] [address] [id number] [address] [place] [id number] Dec, [facility] [address] [id number] [address] [place] [id number] Dec, [facility] [address] [id number] [address] [place] [id number] Dec, [facility] [address] [id number] [address] [place] [id number] Nov, [facility] [address] [id number] [address] [place] [id number] Nov, Generalized anxiety disorder 300.02 ; Posttraumatic stress disorder 309.81 and Major depressive disorder, recurrent episode, moderate 296.32 [facility] [address] [id number] [address] [place] [id number] Nov, [facility] [address] [id number] [address] [place] [id number] Nov, [facility] [address] [id number] [address] [place] [id number] Oct, [facility] [address] [id number] [address] [place] [id number] Oct, [facility] [address] [id number] [address] [place] [id number] Oct, [facility] [address] [id number] [address] [place] [id number] September, [facility] [address] [id number] [address] [place] [id number] September, [facility] [address] [id number] [address] [place] [phone] Aug, [facility] [address] [id number] [address] [place] [id number] Aug, [facility] [address] [id number] [address] [place] [id number] Jul, [facility] [address] [id number] [address] [place] [id number] Jul, [facility] [address] [id number] [address] [place] [id number] Jul, [facility] [address] [id number] [address] [place] [address], [place] [id number] 17 Jul, 2014 [facility] [address] [id number] [address] [place] [address], [place] [id number] 16 Jul, 2014 [facility] [address] [id number] [address] [place] [address], [place] [id number] 16 Jul, 2014 [facility] [address] [id number] [address] [place] [address], [place] [id number] 19 Jul, 2014 [facility] [address] [id number] [address] [place] [address], [place] [id number] 19 Jul, 2014 [facility] [address] [id number] [address] [place] [address], [place] [address] Jul, [facility] [address] [id number] [address] [place] [address], [place] [id number] Jul, [facility] [address] [id number] [address] [place] [address], [place] [address] Jun, [facility] [address] [id number] [address] [place] [address], [place] [address] Jun, [facility] [address] [id number] [address] [place] [address], [place] [address] 05 Jun, 2014 [facility] [address] [id number] [address] [place] [address], [place] [address] 04 May, 2014 [facility] [address] [id number] [address] [place] [address], [place] [address] Apr, [facility] [address] [id number] [address] [place] [address], [place] [address] Apr, [facility] [address] [id number] [address] [place] [address], [place] [address] Apr, [facility] [address] [id number] [address] [place] [address], [place] [address] Apr, [facility] [address] [id number] [address] [place] [address], [place] [address] Apr, [facility] [address] [id number] [address] [place] [address], [place] [address] Apr, [facility] [address] [id number] [address] [place] [address], [place] [address] Apr, [facility] [address] [id number] [address] [place] [address], [place] [address] Apr, [facility] [address] [id number] [address] [place] [address], [place] [address] Mar, [facility] [address] [id number] [address] [place] [address], [place] [address] Mar, [facility] [address] [id number] [address] [place] [address], [place] [address] Mar, [facility] [address] [id number] [address] [place] [address], [place] [address] Mar, [facility] [address] [id number] [address] [place] [address], [place] [address] Mar, [facility] [address] [id number] [address] [place] [address], [place] [address] Mar, [facility] [address] [id number] [address] [place] [address] Mar, [facility] [address] [id number] [address] [place] [address] Mar, [facility] [address] [id number] [address] [place] [address] Mar, [facility] [address] [id number] [address] [place] [address], [place] [address] Mar, [facility] [address] [id number] [address] [place] [address] 17 Mar, 2014 [facility] [address] [id number] [address] [place] [address] 14 Mar, 2014 [facility] [address] [id number] [address] [place] [address] 14 Mar, 2013 [facility] [address] [id number] [address] [place] [address], [place] [address] 07 Mar, 2013 [facility] [address] [id number] [address] [place] [address], [place] [address] 07 Mar, 2013 [facility] [address] [id number] [address] [place] [address], [place] [address] 06 Mar, 2013 [facility] [address] [id number] [address] [place] [address], [place] [address] 06 Oct, 2013 [facility] [address] [id number] [address] [place] [address], [place] [address] 19 Sep, 2013 [facility] [address] [id number] [address] [place] [address], [place] [address] 19 Sep, 2013 [facility] [address] [id number] [address] [place] [address], [place] [address] 09 Sep, 2013 [facility] [address] [id number] [address] [place] [address], [place] [address] 09 Sep, 2013 [facility] [address] [id number] [address] [place] [address], [place] [address] 05 Sep, 2013 [facility] [address] [id number] [address] [place] [address], [place] [address] 05 Sep, 2013 [facility] [address] [id number] [address] [place] [address], [place] [address] 05 Sep, 2013 [facility] [address] [id number] [address] [place] [address] 05 Sep, 2013 [facility] [address] [id number] [address] [place] [address], [place] [address] 03 Sep, 2013 [facility] [address] [id number] [address] [place] [address], [place] [address] 02 Sep, 2013 [facility] [address] [id number] [address] [place] [address], [place] [address] 02 Sep, 2013 [facility] [address] [id number] [facility] [place] [address] Jan, [facility] [address] [id number] [address] [place] [address], [place] [address] Jan, [facility] [address] [id number] [address] [place] [address], [place] [address] Dec, [facility] [address] [id number] [address] [place] [address], [place] [address] Dec, [facility] [address] [id number] [address] [place] [address], [place] [address] Dec, [facility] [address] [id number] [address] [place] [address], [place] [address] Dec, [facility] [address] [id number] [address] [place] [address], [place] [address] Dec, [facility] [address] [id number] [address] [place] [address], [place] [address] Dec, [facility] [address] [place] [id number] Dec, [facility] [address] [place] [id number] Dec, [facility] [address] [id number] [address] [place] [address], [place] [address] Dec, [facility] [address] [id number] [address] [place] [address], [place] [address] Dec, [facility] [address] [id number] [address] [place] [address], [place] [address] Dec, [facility] [address] [id number] [address] [place] [address], [place] [address] Dec, [facility] [address] [id number] [address] [place] [address], [place] [address] Nov, [facility] [address] [id number] [address] [place] [address], [place] [address] Nov, [facility] [address] [id number] [facility] [place] [address] Nov, [facility] [address] [id number] [facility] [address] Nov, [facility] [address] [id number] [facility] [address] Nov, [facility] [address] [id number] [facility] [address] Nov, [facility] [address] [id number] [facility] [place] [address] Nov, [facility] [address] [id number] [address] [place] [address], [place] [address] Nov, [facility] [address] [id number] [address] [place] [address], [place] [address] Nov, [facility] [address] [id number] [address] [place] [address], [place] [address] Nov, [facility] [address] [id number] [address] [place] [address], [place] [address] Nov, [facility] [address] [id number] [address] [place] [address], [place] [address] Nov, [facility] [address] [id number] [address] [place] [address], [place] [address] Nov, [facility] [address] [id number] [address] [place] [address], [place] [address] Oct, [facility] [address] [id number] [address] [place] [address], [place] [address] Oct, [facility] [address] [id number] [address] [place] [address], [place] [address] Oct, [facility] [address] [id number] [address] [place] [address], [place] [address] Oct, [facility] [address] [id number] [address] [place] [address], [place] [address] Oct, [facility] [address] [id number] [facility] [place] [address] Oct, [facility] [address] [id number] [address] [place] [address], [place] [address] Oct, [facility] [address] [id number] [address] [place] [address], [place] [address] Oct, [facility] [address] [id number] [address] [place] [address], [place] [address] Oct, [facility] [address] [id number] [address] [place] [address], [place] [address] Oct, [facility] [address] [id number] [address] [place] [address], [place] [address] Oct, [facility] [address] [id number] [address] [place] [address], [place] [address] Oct, [facility] [address] [id number] [address] [place] [address], [place] [address] September, [facility] [address] [id number] [address] [place] [address], [place] [address] September, [facility] [address] [id number] [address] [place] [address], [place] [address] September, [facility] [address] [id number] [address] [place] [address], [place] [address] September, [facility] [address] [id number] [address] [place] [address], [place] [address] Aug, [facility] [address] [id number] [address] [place] [address], [place] [address] Aug, [facility] [address] [id number] [address] [place] [address], [place] [address] Aug, [facility] [address] [id number] [address] [place] [address], [place] [address] Aug, [facility] [address] [id number] [address] [place] [address], [place] [address] 18 Aug, 2013 [facility] [address] [id number] [address] [place] [address], [place] [address] 10 Aug, 2013 [facility] [address] [id number] [address] [place] [address], [place] [address] 10 Aug, 2013 [facility] [address] [id number] [address] [place] [address], [place] [address] 28 Jul, 2013 [facility] [address] [id number] [address] [place] [address], [place] [address] 28 Jul, 2013 [facility] [address] [id number] [address] [place] [address], [place] [address] Jul, [facility] [address] [id number] [address] [place] [address], [place] [address] Jul, [facility] [address] [id number] [address] [place] [address], [place] [address] 19 Jul, 2013 [facility] [address] [id number] [address] [place] [address], [place] [address] 19 Jul, 2013 [facility] [address] [id number] [address] [place] [address], [place] [address] 18 Jul, 2013 [facility] [address] [id number] [address] [place] [address], [place] [address] 18 Jul, 2013 [facility] [address] [id number] [address] [place] [address], [place] [address] 18 Jul, 2013 [facility] [address] [id number] [address] [place] [address], [place] [address] 18 Jul, 2013 [facility] [address] [id number] [address] [place] [address], [place] [address] 18 Jul, 2013 [facility] [address] [id number] [address] [place] [address], [place] [address] 18 Jul, 2013 [facility] [address] [id number] [address] [place] [address], [place] [address] 14 Jul, 2013 [facility] [address] [id number] [address] [place] [address], [place] [address] 14 Jul, 2013 [facility] [address] [id number] [address] [place] [address], [place] [address] Jul, [facility] [address] [id number] [address] [place] [address], [place] [address] Jul, [facility] [address] [id number] [address] [place] [address], [place] [address] Jul, [facility] [address] [id number] [address] [place] [address], [place] [address] Jul, [facility] [address] [id number] [address] [place] [address], [place] [address] Jun, [facility] [address] [id number] [address] [place] [address], [place] [address] Jun, [facility] [address] [id number] [address] [place] [address], [place] [address] 15 Jun, 2013 [facility] [address] [id number] [address] [place] [address], [place] [address] 15 Jun, 2013 [facility] [address] [id number] [address] [place] [address], [place] [address] Jun, [facility] [address] [id number] [address] [place] [address], [place] [address] Jun, [facility] [address] [id number] [address] [place] [address], [place] [address] Jun, [facility] [address] [id number] [address] [place] [address], [place] [address] Jun, [facility] [address] [id number] [address] [place] [address], [place] [address] 14 Jun, 2013 [facility] [address] [id number] [address] [place] [address], [place] [address] 14 Jun, 2013 [facility] [address] [id number] [address] [place] [address], [place] [address] 27 May, 2013 [facility] [address] [id number] [address] [place] [address], [place] [address] 27 May, 2013 [facility] [address] [id number] [address] [place] [address], [place] [address] 26 May, 2013 [facility] [address] [id number] [address] [place] [address], [place] [address] 19 May, 2013 [facility] [address] [id number] [address] [place] [address], [place] [address] 19 May, 2013 [facility] [address] [id number] [address] [place] [address], [place] [address] 16 May, 2013 [facility] [address] [id number] [address] [place] [address], [place] [address] 16 May, 2013 [facility] [address] [id number] [address] [place] [address], [place] [address] 16 May, 2013 [facility] [address] [id number] [address] [place] [address], [place] [address] 16 May, 2013 [facility] [address] [id number] [address] [place] [address], [place] [address] 13 May, 2013 [facility] [address] [id number] [address] [place] [address], [place] [address] 13 May, 2013 [facility] [address] [id number] [address] [place] [address], [place] [address] 11 May, 2013 [facility] [address] [id number] [address] [place] [address], [place] [address] 20 Apr, 2013 [facility] [address] [id number] [address] [place] [address], [place] [address] 18 Apr, 2013 [facility] [address] [id number] [address] [place] [address], [place] [address] 18 Apr, 2013 [facility] [address] [id number] [address] [place] [address], [place] [address] 13 Apr, 2013 [facility] [address] [id number] [address] [place] [address], [place] [address] 13 Apr, 2013 [facility] [address] [id number] [address] [place] [address], [place] [address] 08 Apr, 2013 [facility] [address] [id number] [address] [place] [address], [place] [address] 08 Apr, 2012 [facility] [address] [id number] [address] [place] [address], [place] [address] 07 Apr, 2013 [facility] [address] [id number] [address] [place] [address], [place] [address] 07 Apr, 2013 [facility] [address] [id number] [address] [place] [address], [place] [address] Apr, [facility] [address] [id number] [address] [place] [address], [place] [address] Apr, [facility] [address] [id number] [address] [place] [address], [place] [address] Mar, [facility] [address] [id number] [address] [place] [address], [place] [address] Mar, [facility] [address] [id number] [address] [place] [address], [place] [address] Mar, [facility] [address] [id number] [address] [place] [address], [place] [address] Mar, [facility] [address] [id number] [address] [place] [address], [place] [address] Mar, [facility] [address] [id number] [address] [place] [address], [place] [address] Mar, [facility] [address] [id number] [address] [place] [address], [place] [address] Mar, [facility] [address] [id number] [address] [place] [address], [place] [address] 18 Mar, 2013 [facility] [address] [id number] [address] [place] [address], [place] [address] 18 Mar, 2013 [facility] [address] [id number] [address] [place] [address], [place] [address] 15 Mar, 2013 [facility] [address] [id number] [address] [place] [address], [place] [address] 15 Mar, 2013 [facility] [address] [id number] [address] [place] [address], [place] [address] Mar, [facility] [address] [id number] [address] [place] [address], [place] [address] 30 Jan, 2013 [facility] [address] [id number] [address] [place] [address], [place] [address] Jan, [facility] [address] [id number] [address] [place] [address], [place] [address] Jan, [facility] [address] [id number] [address] [place] [address], [place] [address] Jan, [facility] [address] [id number] [address] [place] [address], [place] [address] Dec, [facility] [address] [id number] [address] [place] [address], [place] [address] Dec, [facility] [address] [id number] [address] [place] [address], [place] [address] Dec, [facility] [address] [id number] [address] [place] [address], [place] [address] Dec, [facility] [address] [id number] [address] [place] [address], [place] [address] Dec, [facility] [address] [id number] [address] [place] [address], [place] [address] Dec, [facility] [address] [id number] [address] [place] [address], [place] [address] Dec, [facility] [address] [id number] [address] [place] [address], [place] [address] Dec, [facility] [address] [id number] [address] [place] [address], [place] [address] Dec, [facility] [address] [id number] [address] [place] [address], [place] [address] Nov, [facility] [address] [id number] [address] [place] [address], [place] [address] Nov, [facility] [address] [id number] [address] [place] [address], [place] [address] Nov, [facility] [address] [id number] [address] [place] [address], [place] [address] Nov, [facility] [address] [id number] [address] [place] [address], [place] [address] Nov, [facility] [address] [id number] [address] [place] [address], [place] [address] Nov, [facility] [address] [id number] [address] [place] [address], [place] [address] Nov, [facility] [address] [id number] [address] [place] [address], [place] [address] Nov, [facility] [address] [id number] [address] [place] [address], [place] [address] Oct, [facility] [address] [id number] [address] [place] [address], [place] [address] Oct, [facility] [address] [id number] [address] [place] [address], [place] [address] Oct, [facility] [address] [id number] [address] [place] [address], [place] [address] Oct, [facility] [address] [id number] [address] [place] [address], [place] [address] Oct, [facility] [address] [id number] [address] [place] [address], [place] [address] Oct, [facility] [address] [id number] [address] [place] [address], [place] [address] Oct, [facility] [address] [id number] [address] [place] [address], [place] [address] 20 Oct, 2012 [facility] [address] [id number] [address] [place] [address], [place] [address] 19 Oct, 2012 [facility] [address] [id number] [address] [place] [address], [place] [address] 18 Oct, 2012 [facility] [address] [id number] [address] [place] [address], [place] [address] 17 Oct, 2012 [facility] [address] [id number] [address] [place] [address], [place] [address] 14 Oct, 2012 [facility] [address] [id number] [address] [place] [address], [place] [address] 07 Oct, 2012 [facility] [address] [id number] [address] [place] [address], [place] [address] 30 Sep, 2012 [facility] [address] [id number] [address] [place] [address], [place] [address] September, [facility] [address] [id number] [address] [place] [address], [place] [address] September, [facility] [address] [id number] [address] [place] [address], [place] [address] 25 Aug, 2012 [facility] [address] [id number] [address] [place] [address], [place] [address] 24 Aug, 2012 [facility] [address] [id number] [address] [place] [address], [place] [address] 18 Aug, 2012 [facility] [address] [id number] [address] [place] [address], [place] [address] 18 Aug, 2012 [facility] [address] [id number] [address] [place] [address], [place] [address] 18 Aug, 2012 [facility] [address] [id number] [address] [place] [address], [place] [address] 08 Aug, 2012 [facility] [address] [id number] [address] [place] [address], [place] [address] Aug, [facility] [address] [id number] [address] [place] [address], [place] [address] Jul, [facility] [address] [id number] [address] [place] [address], [place] [address] Jul, [facility] [address] [id number] [address] [place] [address], [place] [address] Jul, [facility] [address] [id number] [address] [place] [address], [place] [address] Jul, [facility] [facility] [address] [id number] [address] [place] [address], [place] [address] Jul, [facility] [address] [id number] [address] [place] [address], [place] [address] Jul, [facility] [address] [id number] [address] [place] [address], [place] [address] Jul, [facility] [address] [id number] [address] [place] [address], [place] [address] Jul, [facility] [address] [id number] [address] [place] [address], [place] [address] Jul, [facility] [address] [id number] [address] [place] [address], [place] [address] Jul, [facility] [address] [id number] [address] [place] [address], [place] [address] Jul, [facility] [address] [id number] [address] [place] [address], [place] [address] Jul, [facility] [address] [id number] [address] [place] [address], [place] [address] Jul, [facility] [address] [id number] [address] [place] [address], [place] [address] Jun, [facility] [address] [id number] [address] [place] [address], [place] [address] Jun, [facility] [address] [id number] [address] [place] [address], [place] [address] 19 Jun, 2012 [facility] [address] [id number] [address] [place] [address], [place] [address] 17 Jun, 2012 [facility] [address] [id number] [address] [place] [address], [place] [address] 15 Jun, 2012 [facility] [address] [id number] [address] [place] [address], [place] [address] 14 Jun, 2012 [facility] [address] [id number] [address] [place] [address], [place] [address] 08 Jun, 2012 [facility] [address] [id number] [address] [place] [address], [place] [address] 28 May, 2012 [facility] [address] [id number] [address] [place] [address], [place] [address] May, [facility] [address] [id number] [address] [place] [address], [place] [address] May, [facility] [address] [id number] [address] [place] [address], [place] [address] May, [facility] [address] [id number] [address] [place] [address], [place] [address] May, [facility] [address] [id number] [address] [place] [address], [place] [address] May, [facility] [address] [id number] [address] [place] [address], [place] [address] May, [facility] [address] [id number] [address] [place] [address], [place] [address] May, [facility] [address] [id number] [address] [place] [address], [place] [address] May, [facility] [address] [id number] [address] [place] [address], [place] [address] May, [facility] [address] [id number] [address] [place] [address] Apr, [facility] [address] [id number] [address] [place] [address], [place] [address] Apr, [facility] [address] [id number] [address] [place] [address] Apr, [facility] [address] [id number] [address] [place] [address], [place] [address] Apr, [facility] [address] [id number] [address] [place] [address] Apr, [facility] [address] [id number] [address] [place] [address], [place] [address] Apr, [facility] [address] [id number] [address] [place] [address], [place] [address] Apr, [facility] [address] [id number] [address] [place] [address] Apr, [facility] [address] [id number] [address] [place] [address] Apr, [facility] [address] [id number] [address] [place] [address] Apr, [facility] [address] [id number] [address] [place] [address] Apr, [facility] [address] [id number] [address] [place] [address] Apr, [facility] [address] [id number] [address] [place] [address] Mar, [facility] [address] [id number] [address] [place] [address] Mar, [facility] [address] [id number] [address] [place] [address] Mar, [facility] [address] [id number] [address] [place] [address], [place] [address] Mar, [facility] [address] [id number] [address] [place] [address], [place] [address] 30 Mar, 2011 [facility] [address] [id number] [address] [place] [address], [place] [address] Mar, 2011 [facility] [address] [id number] [address] [place] [address], [place] [address] Mar, 2011 [facility] [address] [id number] [address] [place] [address], [place] [address] Mar, 2011 [facility] [address] [id number] [address] [place] [address], [place] [address] Mar, 2011 [facility] [address] [id number] [address] [place] [address], [place] [address] Mar, 2011 [facility] [address] [id number] [address] [place] [address], [place] [address] Mar, [facility] [address] [id number] [address] [place] [address], [place] [address] Mar, [facility] [address] [id number] [address] [place] [address], [place] [address] Mar, [facility] [address] [id number] [address] [place] [address], [place] [address] Mar, [facility] [address] [id number] [address] [place] [address], [place] [address] Mar, [facility] [address] [id number] [address] [place] [address], [place] [address] Mar, [facility] [address] [id number] [address] [place] [address], [place] [address] 25 Jan, 2012 [facility] [address] [id number] [address] [place] [address], [place] [address] 24 Jan, 2012 [facility] [address] [id number] [address] [place] [address], [place] [address] 22 Jan, 2012 [facility] [address] [id number] [address] [place] [address], [place] [address] Jan, [facility] [address] [id number] [address] [place] [address], [place] [address] 21 Jan, 2012 [facility] [address] [id number] [address] [place] [address], [place] [address] 18 Jan, 2012 [facility] [address] [id number] [address] [place] [address], [place] [address] 14 Jan, 2012 [facility] [address] [id number] [address] [place] [address], [place] [address] 07 Jan, 2012 [facility] [address] [id number] [address] [place] [address], [place] [address] 15 Dec, 2011 [facility] [address] [id number] [address] [place] [address], [place] [address] 10 Dec, 2011 [facility] [address] [id number] [address] [place] [address], [place] [address] Dec, [facility] [address] [id number] [address] [place] [address], [place] [address] Dec, [facility] [address] [id number] [address] [place] [address], [place] [address] Dec, [facility] [address] [id number] [address] [place] [address], [place] [address] Dec, [facility] [address] [id number] [address] [place] [address], [place] [address] Dec, [facility] [address] [id number] [address] [place] [address], [place] [address] Nov, [facility] [address] [id number] [address] [place] [address], [place] [address] Oct, [facility] [address] [id number] [address] [place] [address], [place] [address] Aug, [facility] [address] [id number] [address] [place] [address], [place] [address] Jul, [facility] [address] [id number] [address] [place] [address], [place] [address] 19 Jul, 2011 [facility] [address] [id number] [address] [place] [address], [place] [address] 16 Jul, 2011 [facility] [address] [id number] [address] [place] [address], [place] [address] 14 Jul, 2011 [facility] [address] [id number] [address] [place] [address], [place] [address] 07 Jul, 2011 [facility] [address] [id number] [address] [place] [address], [place] [address] 02 Jul, 2011 [facility] [address] [id number] [address] [place] [address], [place] [address] 21 Jul, 2011 [facility] [address] [id number] [address] [place] [address], [place] [address] 15 Jul, 2011 [facility] [address] [id number] [address] [place] [address], [place] [address] 13 Jul, 2011 [facility] [address] [id number] [address] [place] [address], [place] [address] 03 Jul, 2011 [facility] [address] [id number] [address] [place] [address], [place] [address] 02 Jul, 2011 [facility] [address] [id number] [address] [place] [address], [place] [address] 24 Jun, 2011 [facility] [address] [id number] [address] [place] [address], [place] [address] 24 Jun, 2011 [facility] [address] [id number] [address] [place] [address], [place] [address] Jun, [facility] [address] [id number] [address] [place] [address], [place] [address] Jun, [facility] [address] [id number] [address] [place] [address], [place] [address] 06 Jun, 2011 [facility] [address] [id number] [address] [place] [address], [place] [address] Jun, [facility] [address] [id number] [address] [place] [address], [place] [address] Jun, [facility] [address] [id number] [address] [place] [address], [place] [address] May, [facility] [address] [id number] [address] [place] [address], [place] [address] May, [facility] [address] [id number] [address] [place] [address], [place] [address] May, [facility] [address] [id number] [address] [place] [address], [place] [address] May, [facility] [address] [id number] [address] [place] [address], [place] [address] May, [facility] [address] [id number] [address] [place] [address], [place] [address] May, [facility] [address] [id number] [address] [place] [address], [place] [address] May, [facility] [address] [id number] [address] [place] [address], [place] [address] May, [facility] [address] [id number] [address] [place] [address], [place] [address] May, [facility] [address] [id number] [address] [place] [address], [place] [address] May, [facility] [address] [id number] [address] [place] [address] Apr, [facility] [address] [id number] [address] [place] [address], [place] [address] Apr, [facility] [address] [id number] [address] [place] [address], [place] [address] Apr, [facility] [address] [id number] [address] [place] [address], [place] [address] Apr, [facility] [address] [id number] [address] [place] [address] Mar, [facility] [address] [facility] [id number] [address] [place] [address] Mar, [facility] [address] [facility] [id number] [address] [place] [address] Mar, [facility] [address] [facility] [id number] [address] [place] [address] Mar, IMMUNIZATIONS No Known Immunizations SOCIAL HISTORY [...]
--- OUTSIDE RECORDS SUMMARY | 2020-01-03 18:01 | XMS REPORT ---
Author Author Pattie VIEIRA Organization [facility] Address [address] [place] [address] Care Team Providers Care Hospital Intern Name Role Phone REYNALDO VIEIRA Unavailable PROBLEMS Type Condition ICD9-CM Code UHU03-CY Code Onset Dates Condition S tatus SNOMED Code Problem FRANCIS (generalized anxiety disorder) F41.1 Active 47556108 Problem Thoracic disc herniation M51.24 Activ e [id number] Problem Major depressive disorder in partial remission F32 .4 Active 40136890 Problem Seizure disorder G40.909 Active 128 613275 Problem Conversion disorder (or hysterical neurosis, conversion ty pe) F44.9 Active 61412358 Problem Constipation, unspecified constipation type K59.00 Active 81642328 Problem Mild episode of recurrent major depressive disorder F33.0 Active 319519022 Problem Restless leg syndrome G25.81 Active 39729218 Problem Nonadherence to medication Z91.14 Act vivian 647729497 Problem Slow transit constipation K59.01 Acti ve 94638686 Problem Atrophic vaginitis N95.2 Active 5 6981252 Problem Paroxysmal tachycardia I47.9 Active 43549102 Problem Other chronic pain G89.29 Active 8 4098376 Problem Mild intermittent asthma without complication J45. 20 Active 745842071 Problem Obesity (BMI 30.0-34.9) E66.9 Active [id number] Problem High blood pressure I10 Active 54226840 ALLERGIES No Information ENCOUNTERS Encounter Location Date Diagnosis [address] [id number] [address] 08 Oct, 2019 Breast cancer screening Z12. 39 [facility] [address] [facility] [id number] [address] [place] [address] 05 Oct, 2019 [facility] [address] [facility] [id number] [address] [place] [address] 01 Oct, 2019 [facility] [address] [id number] [address] [place] [address] September, [facility] [address] [id number] [address] [place] [address] September, [facility] [address] [facility] [id number] [address] [place] [address] September, Well woman exam with routine gynecological exam Z01.419 and Atrophic vaginitis N95.2 [facility] [address] [facility] [id number] [address] [place] [address] September, Major depressive disorder in partial remission F32.4 ; FRANCIS (generalized anxiety disorder) F41.1 ; Restless leg syndrome G25.81 and Nonadherence to medication Z91.14 [facility] [address] [facility] [id number] [address] [place] [address] September, [facility] [address] [facility] [id number] [address] [place] [address] Aug, [facility] [address] [place] [id number] [place] [id number] Aug, Dental examination Z01.20 [facility] [address] [id number] 15 Aug, 2019 Dental examination Z01.20 an d Caries K02.9 [facility] [address] [facility] [id number] [address] [place] [address] Aug, [facility] [address] [id number] [address] [place] [address] Aug, [facility] [address] [facility] [id number] [address] [place] [address] Aug, Other chronic pain G89.29 an d Back muscle spasm M62.830 [facility] [address] [facility] [id number] [address] [place] [address] Aug, [facility] [address] [facility] [id number] [address] [place] [address] Aug, Major depressive disorder in partial remission F32.4 ; FRANCIS (generalized anxiety disorder) F41.1 ; Restless leg syndrome G25.81 and Nonadherence to medication Z91.14 [facility] [address] [id number] [address] [place] [address] Aug, [facility] [address] [id number] [address] [place] [address] Jul, [facility] [address] [id number] [address] [place] [address] Jul, [facility] [address] [id number] [address] [place] [address] Jul, Major depressive disorder in partial remission F32.4 ; FRANCIS (generalized anxiety disorder) F41.1 ; Restless leg syndrome G25.81 and High blood pressure I10 [facility] [address] [id number] [address] [place] [address] Jul, [facility] [address] [id number] [address] [place] [address] Jul, [facility] [address] [id number] [address] [place] [address] Jun, [facility] [address] [id number] [address] [place] [address] May, [facility] [address] [facility] [id number] [address] [place] [address] Apr, [facility] [address] [id number] [address] [place] [address] Apr, [facility] [address] [id number] [address] [place] [address] Mar, [facility] [address] [facility] [id number] [address] [place] [address] Mar, Major depressive disorder in partial remission F32.4 ; FRANCIS (generalized anxiety disorder) F41.1 and Restless leg syndrome G25.81 [facility] [address] [id number] [address] [place] [address] Mar, Obesity (BMI 30.0-34.9) E66. 9 [facility] [address] [id number] [address] [place] [address] Jan, [facility] [address] [id number] [address] [place] [address] Jan, Burn T30.0 [facility] [address] [id number] [address] [place] [address] Dec, [facility] [address] [id number] [address] [place] [address] Nov, [facility] [address] [facility] [id number] [address] [place] [address] Nov, [facility] [id number] [place] [address] [id number] Nov, Dental examination Z01.20 [facility] [address] [id number] [address] [place] [address] September, [facility] [address] [id number] September, Decay, teeth K02.9 and Denta l examination Z01.20 [facility] [address] [place] [id number] September, Dental examination Z01.20 [facility] [address] [place] [id number] [address] [place] [address] September, FRANCIS (generalized anxiety dis order) F41.1 ; Major depressive disorder in partial remission F32.4 and Restless leg syndrome G25.81 [facility] [address] [facility] [id number] [address] [place] [address] Aug, [facility] [address] [facility] [id number] [address] [place] [address] Jul, [facility] [address] [place] [id number] [place] [address] Jul, Encounter to discuss test re sults Z71.2 [place] [address] [place] [id number] [place] [address] Jul, Pelvic pain R10.2 ; Screenin g for breast cancer Z12.31 and Obesity (BMI 30.0-34.9) E66.9 [place] [address] [address] Jul, Mild intermittent asthma wit hout complication J45.20 [place] [address] [place] [id number] [place] [address] Jul, Major depressive disorder in partial remission F32.4 and FRANCIS (generalized anxiety disorder) F41.1 [place] [address] [address] Jul, [place] [address] [place] [id number] [place] [address] Jun, [place] [address] [address] May, Major depressive disorder in partial remission F32.4 ; FRANCIS (generalized anxiety disorder) F41.1 and Restless leg syndrome G25.81 [place] [address] [place] [id number] [address] [place] [address] Apr, [facility] [address] [place] [id number] [address] [place] [address] Mar, [facility] [address] [place] [place] [id number] [address] [place] [address] 21 Jan, 2018 Pain in thoracic spine M54.6 and Other chronic pain G89.29 [facility] [address] [place] [id number] [address] [place] [address] 14 Jan, 2018 [facility] [address] [place] [id number] [address] [place] [address] 11 Jan, 2018 Mild episode of recurrent ma saray depressive disorder F33.0 ; FRANCIS (generalized anxiety disorder) F41.1 and Restless leg syndrome G25.81 [facility] [address] [id number] [address] [place] [address] Dec, [facility] [address] [id number] [address] [place] [address] Dec, Hospital discharge follow-up Z09 [facility] [address] [id number] [address] [place] [address] Nov, [facility] [address] [id number] [address] [place] [address] Nov, [facility] [address] [id number] [address] [place] [address] September, [facility] [address] [id number] [address] [place] [address] September, [facility] [address] [id number] [address] [place] [address] September, Major depressive disorder in partial remission F32.4 ; FRANCIS (generalized anxiety disorder) F41.1 and Restless leg syndrome G25.81 [facility] [address] [id number] [address] [place] [address] September, [facility] [address] [id number] [address] [place] [address] Jul, [facility] [address] [id number] [address] [place] [address] Jul, Dorsalgia, unspecified M54.9 [facility] [address] [id number] [address] [place] [address] Jul, Mild episode of recurrent ma saray depressive disorder F33.0 and FRANCIS (generalized anxiety disorder) F41.1 [facility] [address] [id number] [address] [place] [address] May, [facility] [address] [id number] [address] [place] [address] May, Dysuria R30.0 and Acute cyst itis with hematuria N30.01 [facility] [address] [id number] [address] [place] [address] Apr, [facility] [address] [facility] [id number] [address] [place] [address] Apr, Major depressive disorder in partial remission F32.4 and FRANCIS (generalized anxiety disorder) F41.1 [facility] [address] [id number] [address] [place] [address] Mar, Paroxysmal tachycardia I47.9 [place] [address] [facility] [id number] [address] [place] [address] Mar, Paroxysmal tachycardia I47.9 and Pain of left lower extremity M79.605 [place] [address] [place] [id number] [address] [place] [address] Mar, FRANCIS (generalized anxiety dis order) F41.1 and Major depressive disorder in partial remission F32.4 [facility] [address] [facility] [id number] [address] [place] [address] Jan, [facility] [address] [facility] [id number] [address] [place] [address] Jan, [facility] [address] [id number] [address] [place] [address] Jan, [facility] [address] [id number] [address] [place] [address] Dec, Constipation, unspecified co nstipation type K59.00 [facility] [address] [id number] [address] [place] [address] Dec, [facility] [address] [facility] [id number] [address] [place] [address] Nov, [facility] [address] [facility] [id number] [address] [place] [address] Nov, Major depressive disorder in partial remission F32.4 and FRANCIS (generalized anxiety disorder) F41.1 [facility] [address] [id number] [address] [place] [address] Oct, Abdominal pain R10.9 and Slo w transit constipation K59.01 [facility] [address] [facility] [id number] [address] [place] [address] Aug, Major depressive disorder in partial remission F32.4 ; FRANCIS (generalized anxiety disorder) F41.1 ; Conversion disorder (or hysterical neurosis, conversion type) F44.9 ; Dorsalgia, unspecified M54.9 and Long-term use of high-risk medication Z79.899 [place] [address] [facility] [id number] [address] [place] [address] Aug, [place] [address] [facility] [id number] [address] [place] [address] Jul, Paroxysmal tachycardia I47.9 [facility] [address] [facility] [id number] [address] [place] [address] Jul, Paroxysmal tachycardia I47.9 [place] [address] [facility] [id number] [address] [place] [address] Jun, [facility] [address] [facility] [id number] [address] [place] [address] Jun, Major depressive disorder in partial remission F32.4 ; FRANCIS (generalized anxiety disorder) F41.1 and Conversion disorder (or hysterical neurosis, conversion type) F44.9 [facility] [address] [id number] [address] [place] [address] May, Pelvic pain R10.2 [facility] [address] [facility] [id number] [address] [place] [address] 30 Apr, 2016 Gastroenteritis K52.9 [facility] [address] [facility] [id number] [address] [place] [address] 17 Apr, 2016 Blood in urine R31.9 and Acu te cystitis with hematuria N30.01 [facility] [address] [id number] [address] [place] [address] 17 Apr, 2016 Major depressive disorder in partial remission F32.4 ; FRANCIS (generalized anxiety disorder) F41.1 and Conversion disorder (or hysterical neurosis, conversion type) F44.9 [facility] [address] [id number] [address] [place] [address] Apr, [facility] [address] [id number] [address] [place] [address] Apr, Abnormal mammogram R92.8 [facility] [address] [id number] [address] [place] [address] Mar, [facility] [address] [id number] [address] [place] [address] Mar, Gastroenteritis K52.9 and Se izure disorder G40.909 [facility] [address] [id number] [address] [place] [address] Dec, [facility] [address] [id number] [address] [place] [address] Dec, Other headache syndrome G44. 89 [facility] [address] [id number] [address] [place] [address] Dec, [facility] [address] [id number] [address] [place] [address] Dec, Thoracic disc herniation M51 .24 [facility] [address] [id number] [address] [place] [address] Dec, [facility] [address] [id number] [address] [place] [address] Nov, Major depressive disorder in partial remission F32.4 and FRANCIS (generalized anxiety disorder) F41.1 [facility] [address] [id number] [address] [place] [address] Nov, [facility] [address] [id number] [address] [place] [address] Nov, Dorsalgia, unspecified M54.9 [facility] [address] [id number] [address] [place] [address] Oct, [facility] [address] [id number] [address] [place] [address] September, [facility] [address] [id number] [address] [place] [address] Aug, [facility] [address] [id number] [address] [place] [address] Aug, Major depressive disorder in partial remission F32.4 and FRANCIS (generalized anxiety disorder) F41.1 [facility] [address] [id number] [address] [place] [address] Aug, [facility] [address] [id number] [address] [place] [address] Jul, Abnormal mammogram R92.8 [facility] [address] [id number] [address] [place] [address] Jul, [facility] [address] [id number] [address] [place] [address] Jul, [facility] [address] [id number] [address] [place] [address] Jul, [facility] [address] [id number] [address] [place] [address] Jul, [facility] [address] [id number] [address] [place] [address] Jul, [facility] [address] [id number] [address] [place] [address] Jul, [facility] [address] [id number] [address] [place] [address] Jun, Major depressive disorder in partial remission F32.4 and FRANCIS (generalized anxiety disorder) F41.1 [facility] [address] [id number] [address] [place] [address] 08 Jun, 2015 [facility] [address] [id number] [address] [place] [address] May, [facility] [address] [id number] [address] [place] [address] Apr, [facility] [address] [id number] [address] [place] [address] Mar, Major depressive disorder, r ecurrent episode, moderate F33.1 ; PTSD (post-traumatic stress disorder) F43.10 and FRANCIS (generalized anxiety disorder) F41.1 [facility] [address] [id number] [address] [place] [address] Mar, [facility] [address] [id number] [address] [place] [address] Mar, [facility] [address] [id number] [address] [place] [address] Mar, [facility] [address] [id number] [address] [place] [address] Mar, [facility] [address] [id number] [address] [place] [address] 23 Jan, 2015 [facility] [address] [id number] [address] [place] [address] 15 Jan, 2015 [facility] [address] [id number] [address] [place] [address] 15 Jan, 2015 [facility] [address] [id number] [address] [place] [address] 14 Jan, 2015 Thoracic disc herniation 722 .11 [facility] [address] [id number] [address] [place] [address] Dec, [facility] [address] [id number] [address] [place] [address] Dec, [facility] [address] [id number] [address] [place] [address] Dec, [facility] [address] [id number] [address] [place] [address] Nov, [facility] [address] [id number] [address] [place] [address] Nov, Generalized anxiety disorder 300.02 ; Posttraumatic stress disorder 309.81 and Major depressive disorder, recurrent episode, moderate 296.32 [facility] [address] [id number] [address] [place] [address] Nov, [facility] [address] [id number] [address] [place] [address] Nov, [facility] [address] [id number] [address] [place] [address] Oct, [facility] [address] [id number] [address] [place] [address] Oct, [facility] [address] [id number] [address] [place] [id number] Oct, [facility] [address] [id number] [address] [place] [id number] September, [facility] [address] [id number] [address] [place] [id number] September, [facility] [address] [id number] [address] [place] [id number] Aug, [facility] [address] [id number] [address] [place] [id number] Aug, [facility] [address] [id number] [address] [place] [id number] Jul, [facility] [address] [id number] [address] [place] [id number] Jul, [facility] [address] [id number] [address] [place] [id number] Jul, [facility] [address] [id number] [address] [place] [address], [place] [address] 17 Jul, 2014 [facility] [address] [id number] [address] [place] [address], [place] [address] 16 Jul, 2014 [facility] [address] [id number] [address] [place] [address], [place] [address] 16 Jul, 2014 [facility] [address] [id number] [address] [place] [address], [place] [id number] 19 Jul, 2014 [facility] [address] [id number] [address] [place] [address], [place] [address] 19 Jul, 2014 [facility] [address] [id number] [address] [place] [address], [place] [id number] Jul, [facility] [address] [id number] [address] [place] [address], [place] [id number] Jul, [facility] [address] [id number] [address] [place] [address], [place] [address] Jun, [facility] [address] [id number] [address] [place] [address], [place] [address] Jun, [facility] [address] [id number] [address] [place] [address], [place] [id number] 05 Jun, 2014 [facility] [address] [id number] [address] [place] [address], [place] [id number] 04 May, 2014 [facility] [address] [id number] [address] [place] [address], [place] [id number] Apr, [facility] [address] [id number] [address] [place] [address], [place] [address] Apr, [facility] [address] [id number] [address] [place] [address], [place] [address] Apr, [facility] [address] [id number] [address] [place] [address], [place] [address] Apr, [facility] [address] [id number] [address] [place] [address], [place] [address] Apr, [facility] [address] [id number] [address] [place] [address], [place] [address] Apr, [facility] [address] [id number] [address] [place] [address], [place] [address] Apr, [facility] [address] [id number] [address] [place] [address], [place] [address] Apr, [facility] [address] [id number] [address] [place] [address], [place] [address] Mar, [facility] [address] [id number] [address] [place] [address], [place] [address] Mar, [facility] [address] [id number] [address] [place] [address], [place] [address] Mar, [facility] [address] [id number] [address] [place] [address], [place] [address] Mar, [facility] [address] [id number] [address] [place] [address], [place] [address] Mar, [facility] [address] [id number] [address] [place] [address], [place] [address] Mar, [facility] [address] [id number] [address] [place] [address] Mar, [facility] [address] [id number] [address] [place] [address] Mar, [facility] [address] [id number] [address] [place] [address] Mar, [facility] [address] [id number] [address] [place] [address], [place] [address] Mar, [facility] [address] [id number] [address] [place] [address] 17 Mar, 2014 [facility] [address] [id number] [address] [place] [address] 14 Mar, 2014 [facility] [address] [id number] [address] [place] [address] 14 Mar, 2013 [facility] [address] [id number] [address] [place] [address], [place] [address] 07 Mar, 2013 [facility] [address] [id number] [address] [place] [address], [place] [address] 07 Mar, 2013 [facility] [address] [id number] [address] [place] [address], [place] [address] 06 Mar, 2013 [facility] [address] [id number] [address] [place] [address], [place] [address] 06 Oct, 2013 [facility] [address] [id number] [address] [place] [address], [place] [address] 19 Sep, 2013 [facility] [address] [id number] [address] [place] [address], [place] [address] 19 Sep, 2013 [facility] [address] [id number] [address] [place] [address], [place] [address] 09 Sep, 2013 [facility] [address] [id number] [address] [place] [address], [place] [address] 09 Sep, 2013 [facility] [address] [id number] [address] [place] [address], [place] [address] 05 Sep, 2013 [facility] [address] [id number] [address] [place] [address], [place] [address] 05 Sep, 2013 [facility] [address] [id number] [address] [place] [address], [place] [address] 05 Sep, 2013 [facility] [address] [id number] [address] [place] [address] 05 Sep, 2013 [facility] [address] [id number] [address] [place] [address], [place] [address] 03 Sep, 2013 [facility] [address] [id number] [address] [place] [address], [place] [address] 02 Sep, 2013 [facility] [address] [id number] [address] [place] [address], [place] [address] 02 Sep, 2013 [facility] [address] [id number] [facility] [place] [address] Jan, [facility] [address] [id number] [address] [place] [address], [place] [address] Jan, [facility] [address] [id number] [address] [place] [address], [place] [address] Dec, [facility] [address] [id number] [address] [place] [address], [place] [address] Dec, [facility] [address] [id number] [address] [place] [address], [place] [address] Dec, [facility] [address] [id number] [address] [place] [address], [place] [address] Dec, [facility] [address] [id number] [address] [place] [address], [place] [address] Dec, [facility] [address] [id number] [address] [place] [address], [place] [address] Dec, [facility] [address] [place] [id number] Dec, [facility] [address] [place] [id number] Dec, [facility] [address] [id number] [address] [place] [address], [place] [address] Dec, [facility] [address] [id number] [address] [place] [address], [place] [address] Dec, [facility] [address] [id number] [address] [place] [address], [place] [address] Dec, [facility] [address] [id number] [address] [place] [address], [place] [address] Dec, [facility] [address] [id number] [address] [place] [address], [place] [address] Nov, [facility] [address] [id number] [address] [place] [address], [place] [address] Nov, [facility] [address] [id number] [facility] [place] [address] Nov, [facility] [address] [id number] [facility] [address] Nov, [facility] [address] [id number] [facility] [place] [address] Nov, [facility] [address] [id number] [facility] [place] [address] Nov, [facility] [address] [id number] [facility] [place] [address] Nov, [facility] [address] [id number] [address] [place] [address], [place] [address] Nov, [facility] [address] [id number] [address] [place] [address], [place] [address] Nov, [facility] [address] [id number] [address] [place] [address], [place] [address] Nov, [facility] [address] [id number] [address] [place] [address], [place] [address] Nov, [facility] [address] [id number] [address] [place] [address], [place] [address] Nov, [facility] [address] [id number] [address] [place] [address], [place] [address] Nov, [facility] [address] [id number] [address] [place] [address], [place] [address] Oct, [facility] [address] [id number] [address] [place] [address], [place] [address] Oct, [facility] [address] [id number] [address] [place] [address], [place] [address] Oct, [facility] [address] [id number] [address] [place] [address], [place] [address] Oct, [facility] [address] [id number] [address] [place] [address], [place] [address] Oct, [facility] [address] [id number] [facility] [address] Oct, [facility] [address] [id number] [address] [place] [address], [place] [address] Oct, [facility] [address] [id number] [address] [place] [address], [place] [address] Oct, [facility] [address] [id number] [address] [place] [address], [place] [address] Oct, [facility] [address] [id number] [address] [place] [address], [place] [address] Oct, [facility] [address] [id number] [address] [place] [address], [place] [address] Oct, [facility] [address] [id number] [address] [place] [address], [place] [address] Oct, [facility] [address] [id number] [address] [place] [address], [place] [address] September, [facility] [address] [id number] [address] [place] [address], [place] [address] September, [facility] [address] [id number] [address] [place] [address], [place] [address] September, [facility] [address] [id number] [address] [place] [address], [place] [address] September, [facility] [address] [id number] [address] [place] [address], [place] [address] Aug, [facility] [address] [id number] [address] [place] [address], [place] [address] Aug, [facility] [address] [id number] [address] [place] [address], [place] [address] Aug, [facility] [address] [id number] [address] [place] [address], [place] [address] Aug, [facility] [address] [id number] [address] [place] [address], [place] [address] 18 Aug, 2013 [facility] [address] [id number] [address] [place] [address], [place] [address] 10 Aug, 2013 [facility] [address] [id number] [address] [place] [address], [place] [address] 10 Aug, 2013 [facility] [address] [id number] [address] [place] [address], [place] [address] 28 Jul, 2013 [facility] [address] [id number] [address] [place] [address], [place] [address] 28 Jul, 2013 [facility] [address] [id number] [address] [place] [address], [place] [address] Jul, [facility] [address] [id number] [address] [place] [address], [place] [address] Jul, [facility] [address] [id number] [address] [place] [address], [place] [address] 19 Jul, 2013 [facility] [address] [id number] [address] [place] [address], [place] [address] 19 Jul, 2013 [facility] [address] [id number] [address] [place] [address], [place] [address] 18 Jul, 2013 [facility] [address] [id number] [address] [place] [address], [place] [address] 18 Jul, 2013 [facility] [address] [id number] [address] [place] [address], [place] [address] 18 Jul, 2013 [facility] [address] [id number] [address] [place] [address], [place] [address] 18 Jul, 2013 [facility] [address] [id number] [address] [place] [address], [place] [address] 18 Jul, 2013 [facility] [address] [id number] [address] [place] [address], [place] [address] 18 Jul, 2013 [facility] [address] [id number] [address] [place] [address], [place] [address] 14 Jul, 2013 [facility] [address] [id number] [address] [place] [address], [place] [address] 14 Jul, 2013 [facility] [address] [id number] [address] [place] [address], [place] [address] Jul, [facility] [address] [id number] [address] [place] [address], [place] [address] Jul, [facility] [address] [id number] [address] [place] [address], [place] [address] Jul, [facility] [address] [id number] [address] [place] [address], [place] [address] Jul, [facility] [address] [id number] [address] [place] [address], [place] [address] Jun, [facility] [address] [id number] [address] [place] [address], [place] [address] Jun, [facility] [address] [id number] [address] [place] [address], [place] [address] 15 Jun, 2013 [facility] [address] [id number] [address] [place] [address], [place] [address] 15 Jun, 2013 [facility] [address] [id number] [address] [place] [address], [place] [address] Jun, [facility] [address] [id number] [address] [place] [address], [place] [address] Jun, [facility] [address] [id number] [address] [place] [address], [place] [address] Jun, [facility] [address] [id number] [address] [place] [address], [place] [address] Jun, [facility] [address] [id number] [address] [place] [address], [place] [address] 14 Jun, 2013 [facility] [address] [id number] [address] [place] [address], [place] [address] 14 Jun, 2013 [facility] [address] [id number] [address] [place] [address], [place] [address] 27 May, 2013 [facility] [address] [id number] [address] [place] [address], [place] [address] 27 May, 2013 [facility] [address] [id number] [address] [place] [address], [place] [address] 26 May, 2013 [facility] [address] [id number] [address] [place] [address], [place] [address] 19 May, 2013 [facility] [address] [id number] [address] [place] [address], [place] [address] 19 May, 2013 [facility] [address] [id number] [address] [place] [address], [place] [address] 16 May, 2013 [facility] [address] [id number] [address] [place] [address], [place] [address] 16 May, 2013 [facility] [address] [id number] [address] [place] [address], [place] [address] 16 May, 2013 [facility] [address] [id number] [address] [place] [address], [place] [address] 16 May, 2013 [facility] [address] [id number] [address] [place] [address], [place] [address] 13 May, 2013 [facility] [address] [id number] [address] [place] [address], [place] [address] 13 May, 2013 [facility] [address] [id number] [address] [place] [address], [place] [address] 11 May, 2013 [facility] [address] [id number] [address] [place] [address], [place] [address] 20 Apr, 2013 [facility] [address] [id number] [address] [place] [address], [place] [address] 18 Apr, 2013 [facility] [address] [id number] [address] [place] [address], [place] [address] 18 Apr, 2013 [facility] [address] [id number] [address] [place] [address], [place] [address] 13 Apr, 2013 [facility] [address] [id number] [address] [place] [address], [place] [address] 13 Apr, 2013 [facility] [address] [id number] [address] [place] [address], [place] [address] 08 Apr, 2013 [facility] [address] [id number] [address] [place] [address], [place] [address] 08 Apr, 2012 [facility] [address] [id number] [address] [place] [address], [place] [address] 07 Apr, 2013 [facility] [address] [id number] [address] [place] [address], [place] [address] 07 Apr, 2013 [facility] [address] [id number] [address] [place] [address], [place] [address] Apr, [facility] [address] [id number] [address] [place] [address], [place] [address] Apr, [facility] [address] [id number] [address] [place] [address], [place] [address] Mar, [facility] [address] [id number] [address] [place] [address], [place] [address] Mar, [facility] [address] [id number] [address] [place] [address], [place] [address] Mar, [facility] [address] [id number] [address] [place] [address], [place] [address] Mar, [facility] [address] [id number] [address] [place] [address], [place] [address] Mar, [facility] [address] [id number] [address] [place] [address], [place] [address] Mar, [facility] [address] [id number] [address] [place] [address], [place] [address] Mar, [facility] [address] [id number] [address] [place] [address], [place] [address] 18 Mar, 2013 [facility] [address] [id number] [address] [place] [address], [place] [address] 18 Mar, 2013 [facility] [address] [id number] [address] [place] [address], [place] [address] 15 Mar, 2013 [facility] [address] [id number] [address] [place] [address], [place] [address] 15 Mar, 2013 [facility] [address] [id number] [address] [place] [address], [place] [address] Mar, [facility] [address] [id number] [address] [place] [address], [place] [address] 30 Jan, 2013 [facility] [address] [id number] [address] [place] [address], [place] [address] Jan, [facility] [address] [id number] [address] [place] [address], [place] [address] Jan, [facility] [address] [id number] [address] [place] [address], [place] [address] Jan, [facility] [address] [id number] [address] [place] [address], [place] [address] Dec, [facility] [address] [id number] [address] [place] [address], [place] [address] Dec, [facility] [address] [id number] [address] [place] [address], [place] [address] Dec, [facility] [address] [id number] [address] [place] [address], [place] [address] Dec, [facility] [address] [id number] [address] [place] [address], [place] [address] Dec, [facility] [address] [id number] [address] [place] [address], [place] [address] Dec, [facility] [address] [id number] [address] [place] [address], [place] [address] Dec, [facility] [address] [id number] [address] [place] [address], [place] [address] Dec, [facility] [address] [id number] [address] [place] [address], [place] [address] Dec, [facility] [address] [id number] [address] [place] [address], [place] [address] Nov, [facility] [address] [id number] [address] [place] [address], [place] [address] Nov, [facility] [address] [id number] [address] [place] [address], [place] [address] Nov, [facility] [address] [id number] [address] [place] [address], [place] [address] Nov, [facility] [address] [id number] [address] [place] [address], [place] [address] Nov, [facility] [address] [id number] [address] [place] [address], [place] [address] Nov, [facility] [address] [id number] [address] [place] [address], [place] [address] Nov, [facility] [address] [id number] [address] [place] [address], [place] [address] Nov, [facility] [address] [id number] [address] [place] [address], [place] [address] Oct, [facility] [address] [id number] [address] [place] [address], [place] [address] Oct, [facility] [address] [id number] [address] [place] [address], [place] [address] Oct, [facility] [address] [id number] [address] [place] [address], [place] [address] Oct, [facility] [address] [id number] [address] [place] [address], [place] [address] Oct, [facility] [address] [id number] [address] [place] [address], [place] [address] Oct, [facility] [address] [id number] [address] [place] [address], [place] [address] Oct, [facility] [address] [id number] [address] [place] [address], [place] [address] 20 Oct, 2012 [facility] [address] [id number] [address] [place] [address], [place] [address] 19 Oct, 2012 [facility] [address] [id number] [address] [place] [address], [place] [address] 18 Oct, 2012 [facility] [address] [id number] [address] [place] [address], [place] [address] 17 Oct, 2012 [facility] [address] [id number] [address] [place] [address], [place] [address] 14 Oct, 2012 [facility] [address] [id number] [address] [place] [address], [place] [address] 07 Oct, 2012 [facility] [address] [id number] [address] [place] [address], [place] [address] 30 Sep, 2012 [facility] [address] [id number] [address] [place] [address], [place] [address] September, [facility] [address] [id number] [address] [place] [address], [place] [address] September, [facility] [address] [id number] [address] [place] [address], [place] [address] 25 Aug, 2012 [facility] [address] [id number] [address] [place] [address], [place] [address] 24 Aug, 2012 [facility] [address] [id number] [address] [place] [address], [place] [address] 18 Aug, 2012 [facility] [address] [id number] [address] [place] [address], [place] [address] 18 Aug, 2012 [facility] [address] [id number] [address] [place] [address], [place] [address] 18 Aug, 2012 [facility] [address] [id number] [address] [place] [address], [place] [address] 08 Aug, 2012 [facility] [address] [id number] [address] [place] [address], [place] [address] Aug, [facility] [address] [id number] [address] [place] [address], [place] [address] Jul, [facility] [address] [id number] [address] [place] [address], [place] [address] Jul, [facility] [address] [id number] [address] [place] [address], [place] [address] Jul, [facility] [address] [id number] [address] [place] [address], [place] [address] Jul, [facility] [address] [id number] [address] [place] [address], [place] [address] Jul, [facility] [address] [id number] [address] [place] [address], [place] [address] Jul, [facility] [address] [id number] [address] [place] [address], [place] [address] Jul, [facility] [address] [id number] [address] [place] [address], [place] [address] Jul, [facility] [address] [id number] [address] [place] [address], [place] [address] Jul, [facility] [address] [id number] [address] [place] [address], [place] [address] Jul, [facility] [address] [id number] [address] [place] [address], [place] [address] Jul, [facility] [address] [id number] [address] [place] [address], [place] [address] Jul, [facility] [address] [id number] [address] [place] [address], [place] [address] Jul, [facility] [address] [id number] [address] [place] [address], [place] [address] Jun, [facility] [address] [id number] [address] [place] [address], [place] [address] Jun, [facility] [address] [id number] [address] [place] [address], [place] [address] 19 Jun, 2012 [facility] [address] [id number] [address] [place] [address], [place] [address] 17 Jun, 2012 [facility] [address] [id number] [address] [place] [address], [place] [address] 15 Jun, 2012 [facility] [address] [id number] [address] [place] [address], [place] [address] 14 Jun, 2012 [facility] [address] [id number] [address] [place] [address], [place] [address] 08 Jun, 2012 [facility] [address] [id number] [address] [place] [address], [place] [address] 28 May, 2012 [facility] [address] [id number] [address] [place] [address], [place] [address] May, [facility] [address] [id number] [address] [place] [address], [place] [address] May, [facility] [address] [id number] [address] [place] [address], [place] [address] May, [facility] [address] [id number] [address] [place] [address], [place] [address] May, [facility] [address] [id number] [address] [place] [address], [place] [address] May, [facility] [address] [id number] [address] [place] [address], [place] [address] May, [facility] [address] [id number] [address] [place] [address], [place] [address] May, [facility] [address] [id number] [address] [place] [address], [place] [address] May, [facility] [address] [id number] [address] [place] [address], [place] [address] May, [facility] [address] [id number] [address] [place] [address] Apr, [facility] [address] [id number] [address] [place] [address], [place] [address] Apr, [facility] [address] [id number] [address] [place] [address] Apr, [facility] [address] [id number] [address] [place] [address], [place] [address] Apr, [facility] [address] [id number] [address] [place] [address] Apr, [facility] [address] [id number] [address] [place] [address], [place] [address] Apr, [facility] [address] [id number] [address] [place] [address], [place] [address] Apr, [facility] [address] [id number] [address] [place] [address] Apr, [facility] [address] [id number] [address] [place] [address] Apr, [facility] [address] [id number] [address] [place] [address] Apr, [facility] [address] [id number] [address] [place] [address] Apr, [facility] [address] [id number] [address] [place] [address] Apr, [facility] [address] [id number] [address] [place] [address] Mar, [facility] [address] [id number] [address] [place] [address] Mar, [facility] [address] [id number] [address] [place] [address] Mar, [facility] [address] [id number] [address] [place] [address], [place] [address] Mar, [facility] [address] [id number] [address] [place] [address], [place] [address] 30 Mar, 2011 [facility] [address] [id number] [address] [place] [address], [place] [address] Mar, 2011 [facility] [address] [id number] [address] [place] [address], [place] [address] Mar, 2011 [facility] [address] [id number] [address] [place] [address], [place] [address] Mar, 2011 [facility] [address] [id number] [address] [place] [address], [place] [address] Mar, 2011 [facility] [address] [id number] [address] [place] [address], [place] [address] Mar, 2011 [facility] [address] [id number] [address] [place] [address], [place] [address] Mar, [facility] [address] [id number] [address] [place] [address], [place] [address] Mar, [facility] [address] [id number] [address] [place] [address], [place] [address] Mar, [facility] [address] [id number] [address] [place] [address], [place] [address] Mar, [facility] [address] [id number] [address] [place] [address], [place] [address] Mar, [facility] [address] [id number] [address] [place] [address], [place] [address] Mar, [facility] [address] [id number] [address] [place] [address], [place] [address] 25 Jan, 2012 [facility] [address] [id number] [address] [place] [address], [place] [address] 24 Jan, 2012 [facility] [address] [id number] [address] [place] [address], [place] [address] 22 Jan, 2012 [facility] [address] [id number] [address] [place] [address], [place] [address] Jan, [facility] [address] [id number] [address] [place] [address], [place] [address] 21 Jan, 2012 [facility] [address] [id number] [address] [place] [address], [place] [address] 18 Jan, 2012 [facility] [address] [id number] [address] [place] [address], [place] [address] 14 Jan, 2012 [facility] [address] [id number] [address] [place] [address], [place] [address] 07 Jan, 2012 [facility] [address] [id number] [address] [place] [address], [place] [address] 15 Dec, 2011 [facility] [address] [id number] [address] [place] [address], [place] [address] 10 Dec, 2011 [facility] [address] [id number] [address] [place] [address], [place] [address] Dec, [facility] [address] [id number] [address] [place] [address], [place] [address] Dec, [facility] [address] [id number] [address] [place] [address], [place] [address] Dec, [facility] [address] [id number] [address] [place] [address], [place] [address] Dec, [facility] [address] [id number] [address] [place] [address], [place] [address] Dec, [facility] [address] [id number] [address] [place] [address], [place] [address] Nov, [facility] [address] [id number] [address] [place] [address], [place] [address] Oct, [facility] [address] [id number] [address] [place] [address], [place] [address] Aug, [facility] [address] [id number] [address] [place] [address], [place] [address] Jul, [facility] [address] [id number] [address] [place] [address], [place] [address] 19 Jul, 2011 [facility] [address] [id number] [address] [place] [address], [place] [address] 16 Jul, 2011 [facility] [address] [id number] [address] [place] [address], [place] [address] 14 Jul, 2011 [facility] [address] [id number] [address] [place] [address], [place] [address] 07 Jul, 2011 [facility] [address] [id number] [address] [place] [address], [place] [address] 02 Jul, 2011 [facility] [address] [id number] [address] [place] [address], [place] [address] 21 Jul, 2011 [facility] [address] [id number] [address] [place] [address], [place] [address] 15 Jul, 2011 [facility] [address] [id number] [address] [place] [address], [place] [address] 13 Jul, 2011 [facility] [address] [id number] [address] [place] [address], [place] [address] 03 Jul, 2011 [facility] [address] [id number] [address] [place] [address], [place] [address] 02 Jul, 2011 [facility] [address] [id number] [address] [place] [address], [place] [address] 24 Jun, 2011 [facility] [address] [id number] [address] [place] [address], [place] [address] 24 Jun, 2011 [facility] [address] [id number] [address] [place] [address], [place] [address] Jun, [facility] [address] [id number] [address] [place] [address], [place] [address] Jun, [facility] [address] [id number] [address] [place] [address], [place] [address] 06 Jun, 2011 [facility] [address] [id number] [address] [place] [address], [place] [address] Jun, [facility] [address] [id number] [address] [place] [address], [place] [address] Jun, [facility] [address] [id number] [address] [place] [address], [place] [address] May, [facility] [address] [id number] [address] [place] [address], [place] [address] May, [facility] [address] [id number] [address] [place] [address], [place] [address] May, [facility] [address] [id number] [address] [place] [address], [place] [address] May, [facility] [address] [id number] [address] [place] [address], [place] [address] May, [facility] [address] [id number] [address] [place] [address], [place] [address] May, [facility] [address] [id number] [address] [place] [address], [place] [address] May, [facility] [address] [id number] [address] [place] [address], [place] [address] May, [facility] [address] [id number] [address] [place] [address], [place] [address] May, [facility] [address] [id number] [address] [place] [address], [place] [address] May, [facility] [address] [id number] [address] [place] [address] Apr, [facility] [address] [id number] [address] [place] [address], [place] [address] Apr, [facility] [address] [id number] [address] [place] [address], [place] [address] Apr, [facility] [address] [id number] [address] [place] [address], [place] [address] Apr, [facility] [address] [id number] [address] [place] [address] Mar, [facility] [address] [facility] [id number] [address] [place] [address] Mar, [facility] [address] [facility] [id number] [address] [place] [address] Mar, [facility] [address] [facility] [id number] [address] [place] [address] Mar, IMMUNIZATIONS No Known Immunizations SOCIAL HISTORY [...]
--- OUTSIDE RECORDS SUMMARY | 2020-01-03 18:01 | XMS REPORT ---
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 Phone ROMMEL Petersen Unavailable PROBLEMS Type Condition ICD9-CM Code [id number] Code Onset Dates Condition S tatus SNOMED Code Problem Major depressive disorder in partial remission F32 .4 Active 47049864 Problem FRANCIS (generalized anxiety disorder) F41.1 Active 26605878 Problem Conversion disorder (or hysterical neurosis, conversion ty pe) F44.9 Active 91160428 Problem Thoracic disc herniation M51.24 Activ e 553108724 Problem Slow transit constipation K59.01 Acti ve 52920396 Problem Constipation, unspecified constipation type K59.00 Active 05106307 Problem Mild episode of recurrent major depressive disorder F33.0 Active 486593216 Problem High blood pressure I10 Active 43391026 Problem Paroxysmal tachycardia I47.9 Active 82326704 Problem Nonadherence to medication Z91.14 Act vivian 951431818 Problem Seizure disorder G40.909 Active 128 866901 Problem Restless leg syndrome G25.81 Active 01072942 Problem Other chronic pain G89.29 Active 8 9835669 Problem Mild intermittent asthma without complication J45. 20 Active 886719877 Problem Obesity (BMI 30.0-34.9) E66.9 Active [id number] ALLERGIES No Information ENCOUNTERS Encounter Location Date Diagnosis [facility] [address] [facility] [id number] [address] [place] [phone] September, [facility] [address] [facility] [id number] [address] [place] [phone] September, [facility] [address] [facility] [id number] [address] [place] [phone] Aug, [facility] [address] [id number] [address] [place] [address] [phone] Aug, Dental examination Z01.20 [facility] [address] [id number] [address] [place] [address] [phone] 15 Aug, 2019 Dental examination Z01.20 an d Caries K02.9 [facility] [address] [id number] [address] [place] [phone] Aug, [facility] [address] [id number] [address] [place] [phone] Aug, [facility] [address] [id number] [address] [place] [address] Aug, Other chronic pain G89.29 an d Back muscle spasm M62.830 [facility] [address] [id number] [address] [place] [phone] Aug, [facility] [address] [id number] [address] [place] [phone] Aug, Major depressive disorder in partial remission F32.4 ; FRANCIS (generalized anxiety disorder) F41.1 ; Restless leg syndrome G25.81 and Nonadherence to medication Z91.14 [facility] [address] [id number] [address] [place] [phone] Aug, [facility] [address] [id number] [address] [place] [phone] 31 Jul, 2019 [facility] [address] [id number] [address] [place] [phone] Jul, [facility] [address] [id number] [address] [place] [phone] Jul, Major depressive disorder in partial remission F32.4 ; FRANCIS (generalized anxiety disorder) F41.1 ; Restless leg syndrome G25.81 and High blood pressure I10 [facility] [address] [id number] [address] [place] [phone] 17 Jul, 2019 [facility] [address] [id number] [address] [place] [phone] Jul, [facility] [address] [id number] [address] [place] [phone] Jun, [facility] [address] [id number] [address] [place] [phone] May, [facility] [address] [facility] [id number] [address] [place] [phone] Apr, [facility] [address] [id number] [address] [place] [phone] Apr, [facility] [address] [id number] [address] [place] [phone] Mar, [facility] [address] [facility] [id number] [address] [place] [phone] Mar, Major depressive disorder in partial remission F32.4 ; FRANCIS (generalized anxiety disorder) F41.1 and Restless leg syndrome G25.81 [facility] [address] [facility] [id number] [address] [place] [phone] Mar, Obesity (BMI 30.0-34.9) E66. 9 [facility] [address] [facility] [id number] [address] [place] [phone] Jan, [facility] [address] [facility] [id number] [address] [place] [address] Jan, Burn T30.0 [facility] [address] [id number] [address] [place] [phone] Dec, [facility] [address] [facility] [id number] [address] [place] [phone] Nov, [facility] [address] [facility] [id number] [address] [place] [phone] Nov, [facility] [address] [id number] [address] [place] [address] [phone] Nov, Dental examination Z01.20 [facility] [address] [facility] [id number] [address] [place] [phone] September, [facility] [address] [facility] [id number] [address] [place] [address] [phone] September, Decay, teeth K02.9 and Denta l examination Z01.20 [facility] [address] [facility] [id number] [address] [place] [address] [id number] September, Dental examination Z01.20 [facility] [address] [place] [id number] [address] [place] [phone] September, FRANCIS (generalized anxiety dis order) F41.1 ; Major depressive disorder in partial remission F32.4 and Restless leg syndrome G25.81 [place] [address] [address] Aug, [place] [address] [address] Jul, [place] [address] [address] Jul, Encounter to discuss test re sults Z71.2 [place] [address] [address] Jul, Pelvic pain R10.2 ; Screenin g for breast cancer Z12.31 and Obesity (BMI 30.0-34.9) E66.9 [place] [id number] [place] [address] Jul, Mild intermittent asthma wit hout complication J45.20 [facility] [address] [place] [id number] [address] [place] [address] Jul, Major depressive disorder in partial remission F32.4 and FRANCIS (generalized anxiety disorder) F41.1 [place] [address] [place] [id number] [address] [place] [address] Jul, [place] [address] [place] [id number] [address] [place] [phone] Jun, [place] [address] [id number] [address] [place] [phone] May, Major depressive disorder in partial remission F32.4 ; FRANCIS (generalized anxiety disorder) F41.1 and Restless leg syndrome G25.81 [facility] [address] [id number] [address] [place] [phone] Apr, [facility] [address] [id number] [address] [place] [phone] Mar, [facility] [address] [id number] [address] [place] [phone] Jan, Pain in thoracic spine M54.6 and Other chronic pain G89.29 [facility] [address] [id number] [address] [place] [phone] Jan, [facility] [address] [id number] [address] [place] [phone] 11 Jan, 2018 Mild episode of recurrent ma saray depressive disorder F33.0 ; FRANCIS (generalized anxiety disorder) F41.1 and Restless leg syndrome G25.81 [facility] [address] [id number] [address] [place] [address] Dec, [facility] [address] [id number] [address] [place] [phone] Dec, Hospital discharge follow-up Z09 [facility] [address] [id number] [address] [place] [phone] Nov, [facility] [address] [id number] [address] [place] [phone] Nov, [facility] [address] [id number] [address] [place] [phone] September, [facility] [address] [id number] [address] [place] [phone] September, [facility] [address] [id number] [address] [place] [phone] 08 May, 2018 Major depressive disorder in partial remission F32.4 ; FRANCIS (generalized anxiety disorder) F41.1 and Restless leg syndrome G25.81 [facility] [address] [id number] [address] [place] [phone] September, [facility] [address] [id number] [address] [place] [phone] Jul, [facility] [address] [id number] [address] [place] [address] Jul, Dorsalgia, unspecified M54.9 [facility] [address] [id number] [address] [place] [id number] Jul, Mild episode of recurrent ma saray depressive disorder F33.0 and FRANCIS (generalized anxiety disorder) F41.1 [facility] [address] [id number] [address] [place] [phone] May, [facility] [address] [id number] [address] [place] [address] May, Dysuria R30.0 and Acute cyst itis with hematuria N30.01 [facility] [address] [id number] [address] [place] [phone] Apr, [facility] [address] [facility] [id number] [address] [place] [phone] Apr, Major depressive disorder in partial remission F32.4 and FRANCIS (generalized anxiety disorder) F41.1 [facility] [address] [id number] [address] [place] [phone] Mar, Paroxysmal tachycardia I47.9 [facility] [address] [id number] [address] [place] [address] Mar, Paroxysmal tachycardia I47.9 and Pain of left lower extremity M79.605 [facility] [address] [facility] [id number] [address] [place] [address] Mar, FRANCIS (generalized anxiety dis order) F41.1 and Major depressive disorder in partial remission F32.4 [place] [address] [id number] [address] [place] [phone] 25 Jan, 2017 [facility] [address] [id number] [address] [place] [id number] 14 Jan, 2017 [facility] [address] [id number] [address] [place] [id number] 13 Jan, 2017 [facility] [address] [id number] [address] [place] [address] Dec, Constipation, unspecified co nstipation type K59.00 [facility] [address] [id number] [address] [place] [phone] Dec, [facility] [address] [facility] [id number] [address] [place] [phone] Nov, [facility] [address] [facility] [id number] [address] [place] [phone] Nov, Major depressive disorder in partial remission F32.4 and FRANCIS (generalized anxiety disorder) F41.1 [facility] [address] [facility] [id number] [address] [place] [phone] Oct, Abdominal pain R10.9 and Slo w transit constipation K59.01 [facility] [address] [facility] [id number] [address] [place] [phone] Aug, Major depressive disorder in partial remission F32.4 ; FRANCIS (generalized anxiety disorder) F41.1 ; Conversion disorder (or hysterical neurosis, conversion type) F44.9 ; Dorsalgia, unspecified M54.9 and Long-term use of high-risk medication Z79.899 [facility] [address] [facility] [id number] [address] [place] [phone] Aug, [facility] [address] [facility] [id number] [address] [place] [phone] 15 Jul, 2016 Paroxysmal tachycardia I47.9 [facility] [address] [facility] [id number] [address] [place] [phone] Jul, Paroxysmal tachycardia I47.9 [facility] [address] [id number] [address] [place] [phone] Jun, [facility] [address] [facility] [id number] [address] [place] [phone] Jun, Major depressive disorder in partial remission F32.4 ; FRANCIS (generalized anxiety disorder) F41.1 and Conversion disorder (or hysterical neurosis, conversion type) F44.9 [facility] [address] [id number] [address] [place] [phone] May, Pelvic pain R10.2 [facility] [address] [id number] [address] [place] [phone] Apr, Gastroenteritis K52.9 [facility] [address] [facility] [id number] [address] [place] [phone] Apr, Blood in urine R31.9 and Acu te cystitis with hematuria N30.01 [facility] [address] [id number] [address] [place] [address] Apr, Major depressive disorder in partial remission F32.4 ; FRANCIS (generalized anxiety disorder) F41.1 and Conversion disorder (or hysterical neurosis, conversion type) F44.9 [facility] [address] [facility] [id number] [address] [place] [phone] Apr, [place] [address] [facility] [id number] [address] [place] [address] Apr, Abnormal mammogram R92.8 [facility] [address] [id number] [address] [place] [address] Mar, [facility] [address] [facility] [id number] [address] [place] [address] Mar, Gastroenteritis K52.9 and Se izure disorder G40.909 [facility] [address] [facility] [id number] [address] [place] [phone] Dec, [facility] [address] [id number] [address] [place] [phone] Dec, Other headache syndrome G44. 89 [facility] [address] [id number] [address] [place] [address] Dec, [facility] [address] [id number] [address] [place] [address] Dec, Thoracic disc herniation M51 .24 [facility] [address] [id number] [address] [place] [phone] Dec, [facility] [address] [id number] [address] [place] [phone] Nov, Major depressive disorder in partial remission F32.4 and FRANCIS (generalized anxiety disorder) F41.1 [facility] [address] [id number] [address] [place] [address] Nov, [facility] [address] [id number] [address] [place] [address] Nov, Dorsalgia, unspecified M54.9 [facility] [address] [id number] [address] [place] [address] Oct, [facility] [address] [id number] [address] [place] [phone] September, [facility] [address] [id number] [address] [place] [phone] Aug, [facility] [address] [id number] [address] [place] [phone] Aug, Major depressive disorder in partial remission F32.4 and FRANCIS (generalized anxiety disorder) F41.1 [facility] [address] [id number] [address] [place] [phone] Aug, [facility] [address] [id number] [address] [place] [address] Jul, Abnormal mammogram R92.8 [facility] [address] [id number] [address] [place] [phone] Jul, [facility] [address] [id number] [address] [place] [phone] Jul, [facility] [address] [id number] [address] [place] [phone] Jul, [facility] [address] [id number] [address] [place] [address] Jul, [facility] [address] [id number] [address] [place] [id number] Jul, [facility] [address] [id number] [address] [place] [phone] Jul, [facility] [address] [facility] [id number] [address] [place] [address] Jun, Major depressive disorder in partial remission F32.4 and FRANCIS (generalized anxiety disorder) F41.1 [facility] [address] [id number] [address] [place] [phone] Jun, [facility] [address] [id number] [address] [place] [phone] May, [facility] [address] [id number] [address] [place] [address] Apr, [facility] [address] [facility] [id number] [address] [place] [address] Mar, Major depressive disorder, r ecurrent episode, moderate F33.1 ; PTSD (post-traumatic stress disorder) F43.10 and FRANCIS (generalized anxiety disorder) F41.1 [facility] [address] [id number] [address] [place] [address] Mar, [facility] [address] [id number] [address] [place] [phone] Mar, [facility] [address] [facility] [id number] [address] [place] [address] Mar, [facility] [address] [facility] [id number] [address] [place] [phone] 07 Mar, 2015 [facility] [address] [id number] [address] [place] [id number] 23 Jan, 2015 [facility] [address] [id number] [address] [place] [id number] 15 Jan, 2015 [facility] [address] [id number] [address] [place] [phone] 15 Jan, 2015 [facility] [address] [id number] [address] [place] [address] 14 Jan, 2015 Thoracic disc herniation 722 .11 [facility] [address] [id number] [address] [place] [address] Dec, [facility] [address] [id number] [address] [place] [address] Dec, [facility] [address] [id number] [address] [place] [address] Dec, [facility] [address] [id number] [address] [place] [id number] 16 Nov, 2014 [facility] [address] [id number] [address] [place] [phone] Nov, Generalized anxiety disorder 300.02 ; Posttraumatic stress disorder 309.81 and Major depressive disorder, recurrent episode, moderate 296.32 [facility] [address] [id number] [address] [place] [address] Nov, [facility] [address] [id number] [address] [place] [phone] Nov, [facility] [address] [id number] [address] [place] [phone] Oct, [facility] [address] [id number] [address] [place] [phone] Oct, [facility] [address] [id number] [address] [place] [phone] Oct, [facility] [address] [id number] [address] [place] [address], [place] [address] September, [facility] [address] [id number] [address] [place] [address], [place] [address] September, [facility] [address] [id number] [address] [place] [address], [place] [address] Aug, [facility] [address] [id number] [address] [place] [address], [place] [address] Aug, [facility] [address] [id number] [address] [place] [address], [place] [address] Jul, [facility] [address] [id number] [address] [place] [address], [place] [address] Jul, [facility] [address] [id number] [address] [place] [address], [place] [address] Jul, [facility] [address] [id number] [address] [place] [address], [place] [address] Jul, [facility] [address] [id number] [address] [place] [address], [place] [address] Jul, [facility] [address] [id number] [address] [place] [address], [place] [address] Jul, [facility] [address] [id number] [address] [place] [address], [place] [address] Jul, [facility] [address] [id number] [address] [place] [address], [place] [address] Jul, [facility] [address] [id number] [address] [place] [address], [place] [address] Jul, [facility] [address] [id number] [address] [place] [address], [place] [address] Jul, [facility] [address] [id number] [address] [place] [address], [place] [address] Jun, [facility] [address] [id number] [address] [place] [address] [place] [address] Jun, [facility] [address] [id number] [address] [place] [address], [place] [address] Jun, [facility] [address] [id number] [address] [place] [address], [place] [address] May, [facility] [address] [id number] [address] [place] [address], [place] [address] Apr, [facility] [address] [id number] [address] [place] [address], [place] [address] Apr, [facility] [address] [id number] [address] [place] [address], [place] [address] Apr, [facility] [address] [id number] [address] [place] [address], [place] [address] Apr, [facility] [address] [id number] [address] [place] [address], [place] [address] Apr, [facility] [address] [id number] [address] [place] [address], [place] [address] Apr, [facility] [address] [id number] [address] [place] [address], [place] [address] Apr, [facility] [address] [id number] [address] [place] [address], [place] [address] Apr, [facility] [address] [id number] [address] [place] [address], [place] [address] Mar, [facility] [address] [id number] [address] [place] [address] Mar, [facility] [address] [id number] [address] [place] [address], [place] [address] Mar, [facility] [address] [id number] [address] [place] [address], [place] [address] Mar, [facility] [address] [id number] [address] [place] [address], [place] [address] Mar, [facility] [address] [id number] [address] [place] [address], [place] [address] 24 Mar, 2014 [facility] [address] [id number] [address] [place] [address], [place] [address] 24 Mar, 2014 [facility] [address] [id number] [address] [place] [address], [place] [address] Mar, [facility] [address] [id number] [address] [place] [address], [place] [address] Mar, [facility] [address] [id number] [address] [place] [address], [place] [address] Mar, [facility] [address] [id number] [address] [place] [address], [place] [address] 17 Mar, 2014 [facility] [address] [id number] [address] [place] [address], [place] [address] 14 Mar, 2014 [facility] [address] [id number] [address] [place] [address], [place] [address] 14 Mar, 2014 [facility] [address] [id number] [address] [place] [address], [place] [address] Mar, [facility] [address] [id number] [address] [place] [address], [place] [address] 07 Mar, 2014 [facility] [address] [id number] [address] [place] [address], [place] [address] Mar, [facility] [address] [id number] [address] [place] [address], [place] [address] Mar, [facility] [address] [id number] [address] [place] [address], [place] [address] 19 Jan, 2014 [facility] [address] [id number] [address] [place] [address], [place] [address] 19 Jan, 2013 [facility] [address] [id number] [address] [place] [address], [place] [address] 09 Jan, 2013 [facility] [address] [id number] [address] [place] [address], [place] [address] 09 Sep, 2013 [facility] [address] [id number] [address] [place] [address], [place] [address] 05 Sep, 2013 [facility] [address] [id number] [address] [place] [address], [place] [address] 05 Sep, 2013 [facility] [address] [id number] [address] [place] [address], [place] [address] 05 Sep, 2013 [facility] [address] [id number] [address] [place] [address], [place] [address] 05 Sep, 2013 [facility] [address] [id number] [address] [place] [address], [place] [address] 03 Jan, 2013 [facility] [address] [id number] [address] [place] [address], [place] [address] Jan, 2013 [facility] [address] [id number] [address] [place] [address], [place] [address] Jan, 2013 [facility] [address] [id number] [address] [place] [address], [place] [address] Jan, 2013 [facility] [address] [id number] [address] [place] [address], [place] [address] Jan, 2013 [facility] [address] [id number] [address] [place] [address], [place] [address] Dec, [facility] [address] [id number] [address] [place] [address], [place] [address] Dec, [facility] [address] [id number] [address] [place] [address] Dec, [facility] [address] [id number] [address] [place] [address], [place] [address] Dec, [facility] [address] [id number] [address] [place] [address], [place] [address] Dec, [facility] [address] [id number] [address] [place] [address], [place] [address] Dec, Via [facility] [address] [place] [id number] Dec, Via [facility] [place] [id number] Dec, [facility] [address] [id number] [address] [place] [address], [place] [address] Dec, [facility] [address] [id number] [address] [place] [address], [place] [address] Dec, [facility] [address] [id number] [address] [place] [address], [place] [address] Dec, [facility] [address] [id number] [address] [place] [address], [place] [address] Dec, [facility] [address] [id number] [address] [place] [address], [place] [address] Nov, [facility] [address] [id number] [address] [place] [address], [place] [address] Nov, [facility] [address] [id number] [address] [place] [address], [place] [address] Nov, [facility] [address] [id number] [address] [place] [address], [place] [address] Nov, [facility] [address] [id number] [address] [place] [address], [place] [address] Nov, [facility] [address] [id number] [address] [place] [address], [place] [address] Nov, [facility] [address] [id number] [address] [place] [address], [place] [address] Nov, [facility] [address] [id number] [address] [place] [address], [place] [address] Nov, [facility] [address] [id number] [address] [place] [address], [place] [address] Nov, [facility] [address] [id number] [address] [place] [address], [place] [address] Nov, [facility] [address] [id number] [address] [place] [address], [place] [address] Nov, [facility] [address] [id number] [facility] [place] [address] Nov, [facility] [address] [id number] [facility] [place] [address] Nov, [facility] [address] [id number] [facility] [place] [address] Oct, [facility] [address] [id number] [address] [place] [address], [place] [address] Oct, [facility] [address] [id number] [address] [place] [address], [place] [address] Oct, [facility] [address] [id number] [address] [place] [address], [place] [address] Oct, [facility] [address] [id number] [address] [place] [address], [place] [address] Oct, [facility] [address] [id number] [address] [place] [address], [place] [address] Oct, [facility] [address] [id number] [address] [place] [address], [place] [address] Oct, [facility] [address] [id number] [address] [place] [address], [place] [address] Oct, [facility] [address] [id number] [address] [place] [address], [place] [address] Oct, [facility] [address] [id number] [address] [place] [address], [place] [address] Oct, [facility] [address] [id number] [address] [place] [address], [place] [address] Oct, [facility] [address] [id number] [address] [place] [address], [place] [address] Oct, [facility] [address] [id number] [address] [place] [address], [place] [address] September, [facility] [address] [id number] [facility] [place] [address] September, [facility] [address] [id number] [facility] [place] [address] September, [facility] [address] [id number] [facility] [place] [address] September, [facility] [address] [id number] [address] [place] [address], [place] [address] Aug, [facility] [address] [id number] [address] [place] [address], [place] [address] Aug, [facility] [address] [id number] [address] [place] [address], [place] [address] Aug, [facility] [address] [id number] [address] [place] [address], [place] [address] Aug, [facility] [address] [id number] [address] [place] [address], [place] [address] Aug, [facility] [address] [id number] [address] [place] [address], [place] [address] Aug, [facility] [address] [id number] [address] [place] [address], [place] [address] Aug, [facility] [address] [id number] [address] [place] [address], [place] [address] Jul, [facility] [address] [id number] [address] [place] [address], [place] [address] Jul, [facility] [address] [id number] [address] [place] [address], [place] [address] Jul, [facility] [address] [id number] [address] [place] [address], [place] [address] Jul, [facility] [address] [id number] [address] [place] [address], [place] [address] 19 Jul, 2013 [facility] [address] [id number] [address] [place] [address], [place] [address] Jul, [facility] [address] [id number] [address] [place] [address], [place] [address] Jul, [facility] [address] [id number] [address] [place] [address], [place] [address] 18 Jul, 2013 [facility] [address] [id number] [address] [place] [address], [place] [address] 18 Jul, 2013 [facility] [address] [id number] [address] [place] [address], [place] [address] 18 Jul, 2013 [facility] [address] [id number] [address] [place] [address], [place] [address] Jul, [facility] [address] [id number] [address] [place] [address], [place] [address] 18 Jul, 2013 [facility] [address] [id number] [address] [place] [address], [place] [address] 14 Jul, 2013 [facility] [address] [id number] [address] [place] [address], [place] [address] 14 Jul, 2013 [facility] [address] [id number] [address] [place] [address], [place] [address] Jul, [facility] [address] [id number] [address] [place] [address], [place] [address] Jul, [facility] [address] [id number] [address] [place] [address], [place] [address] Jul, [facility] [address] [id number] [address] [place] [address], [place] [address] Jul, [facility] [address] [id number] [address] [place] [address], [place] [address] Jun, [facility] [address] [id number] [address] [place] [address], [place] [address] Jun, [facility] [address] [id number] [address] [place] [address], [place] [address] Jun, [facility] [address] [id number] [address] [place] [address], [place] [address] 15 Jun, 2013 [facility] [address] [id number] [address] [place] [address], [place] [address] 14 Jun, 2013 [facility] [address] [id number] [address] [place] [address], [place] [address] 14 Jun, 2013 [facility] [address] [id number] [address] [place] [address], [place] [address] 14 Jun, 2013 [facility] [address] [id number] [address] [place] [address], [place] [address] 14 Jun, 2013 [facility] [address] [id number] [address] [place] [address], [place] [address] 14 Jun, 2013 [facility] [address] [id number] [address] [place] [address], [place] [address] 14 Jun, 2013 [facility] [place] [address] [id number] [address] [place] [address], [place] [address] 27 May, 2013 [facility] [place] [address] [id number] [address] [place] [address], [place] [address] 27 May, 2013 [facility] [place] [address] [id number] [address] [place] [address], [place] [address] 26 May, 2013 [facility] [address] [id number] [address] [place] [address], [place] [address] 19 May, 2013 [facility] [address] [id number] [address] [place] [address], [place] [address] 19 May, 2013 [facility] [address] [id number] [address] [place] [address], [place] [address] 16 May, 2013 [facility] [address] [id number] [address] [place] [address], [place] [address] 16 May, 2013 [facility] [address] [id number] [address] [place] [address], [place] [address] 16 May, 2013 [facility] [address] [id number] [place] [address] 16 May, 2013 [facility] [address] [id number] [address] [place] [address], [place] [address] 13 May, 2013 [facility] [address] [id number] [address] [place] [address] 13 May, 2013 [facility] [address] [id number] [address] [place] [address] 11 May, 2013 [facility] [address] [id number] [address] [place] [address] 20 Apr, 2013 [facility] [address] [id number] [address] [place] [address], [place] [address] 18 Apr, 2013 [facility] [address] [id number] [address] [place] [address] 18 Apr, 2013 [facility] [address] [id number] [address] [place] [address] Apr, [facility] [address] [id number] [address] [place] [address] Apr, [facility] [address] [id number] [address] [place] [address] 08 Apr, 2013 [facility] [address] [id number] [address] [place] [address] 08 Apr, 2013 [facility] [address] [id number] [address] [place] [address] 07 Apr, 2013 [facility] [address] [id number] [address] [place] [address] 07 Apr, 2013 [facility] [address] [id number] [address] [place] [address] Apr, [facility] [address] [id number] [address] [place] [address] 07 Apr, 2013 [facility] [address] [id number] [address] [place] [address] Mar, [facility] [address] [id number] [address] [place] [address], [place] [address] Mar, [facility] [address] [id number] [address] [place] [address], [place] [address] Mar, [facility] [address] [id number] [address] [place] [address], [place] [address] Mar, [facility] [address] [id number] [address] [place] [address], [place] [address] Mar, [facility] [address] [id number] [address] [place] [address], [place] [address] Mar, [facility] [address] [id number] [address] [place] [address], [place] [address] Mar, [facility] [address] [id number] [address] [place] [address], [place] [address] Mar, [facility] [address] [id number] [address] [place] [address], [place] [address] Mar, [facility] [address] [id number] [address] [place] [address], [place] [address] 15 Mar, 2013 [facility] [address] [id number] [address] [place] [address], [place] [address] 15 Mar, 2013 [facility] [address] [id number] [address] [place] [address], [place] [address] Mar, [facility] [address] [id number] [address] [place] [address], [place] [address] 30 Jan, 2013 [facility] [address] [id number] [address] [place] [address], [place] [address] 25 Jan, 2013 [facility] [address] [id number] [address] [place] [address], [place] [address] 20 Jan, 2013 [facility] [address] [id number] [address] [place] [address], [place] [address] 10 Jan, 2013 [facility] [address] [id number] [address] [place] [address], [place] [address] Dec, [facility] [address] [id number] [address] [place] [address], [place] [address] Dec, [facility] [address] [id number] [address] [place] [address], [place] [address] Dec, [facility] [address] [id number] [address] [place] [address], [place] [address] Dec, [facility] [address] [id number] [address] [place] [address], [place] [address] Dec, [facility] [address] [id number] [address] [place] [address], [place] [address] Dec, [facility] [address] [id number] [address] [place] [address], [place] [address] Dec, [facility] [address] [id number] [address] [place] [address], [place] [address] Dec, [facility] [address] [id number] [address] [place] [address], [place] [address] Dec, [facility] [address] [id number] [address] [place] [address], [place] [address] Nov, [facility] [address] [id number] [address] [place] [address], [place] [address] Nov, [facility] [address] [id number] [address] [place] [address], [place] [address] Nov, [facility] [address] [id number] [address] [place] [address], [place] [address] Nov, [facility] [address] [id number] [address] [place] [address], [place] [address] Nov, [facility] [address] [id number] [address] [place] [address], [place] [address] Nov, [facility] [address] [id number] [address] [place] [address], [place] [address] Nov, [facility] [address] [id number] [address] [place] [address], [place] [address] Nov, [facility] [address] [id number] [address] [place] [address], [place] [address] Oct, [facility] [address] [id number] [address] [place] [address], [place] [address] Oct, [facility] [address] [id number] [address] [place] [address], [place] [address] Oct, [facility] [address] [id number] [address] [place] [address], [place] [address] Oct, [facility] [address] [id number] [address] [place] [address], [place] [address] Oct, [facility] [address] [id number] [address] [place] [address], [place] [address] Oct, [facility] [address] [id number] [address] [place] [address], [place] [address] Oct, [facility] [address] [id number] [address] [place] [address], [place] [address] Oct, [facility] [address] [id number] [address] [place] [address], [place] [address] Oct, [facility] [address] [id number] [address] [place] [address], [place] [address] 18 Oct, 2012 [facility] [address] [id number] [address] [place] [address], [place] [address] 17 Oct, 2012 [facility] [address] [id number] [address] [place] [address], [place] [address] 14 Oct, 2012 [facility] [address] [id number] [address] [place] [address], [place] [address] 07 Oct, 2012 [facility] [address] [id number] [address] [place] [address], [place] [address] September, [facility] [address] [id number] [address] [place] [address], [place] [address] September, [facility] [address] [id number] [address] [place] [address], [place] [address] September, [facility] [address] [id number] [address] [place] [address], [place] [address] Aug, [facility] [address] [id number] [address] [place] [address], [place] [address] Aug, [facility] [address] [id number] [address] [place] [address], [place] [address] Aug, [facility] [address] [id number] [address] [place] [address], [place] [address] Aug, [facility] [address] [id number] [address] [place] [address], [place] [address] Aug, [facility] [address] [id number] [address] [place] [address], [place] [address] Aug, [facility] [address] [id number] [address] [place] [address], [place] [address] Aug, [facility] [address] [id number] [address] [place] [address], [place] [address] Jul, [facility] [address] [id number] [address] [place] [address], [place] [address] Jul, [facility] [address] [id number] [address] [place] [address], [place] [address] Jul, [facility] [address] [id number] [address] [place] [address], [place] [address] Jul, [facility] [address] [id number] [address] [place] [address], [place] [address] Jul, [facility] [address] [id number] [address] [place] [address], [place] [address] Jul, [facility] [address] [id number] [address] [place] [address], [place] [address] Jul, [facility] [address] [id number] [address] [place] [address], [place] [address] Jul, [facility] [address] [id number] [address] [place] [address], [place] [address] Jul, [facility] [address] [id number] [address] [place] [address], [place] [address] Jul, [facility] [address] [id number] [address] [place] [address], [place] [address] Jul, [facility] [address] [id number] [address] [place] [address], [place] [address] Jul, [facility] [address] [id number] [address] [place] [address], [place] [address] Jul, [facility] [address] [id number] [address] [place] [address], [place] [address] Jun, [facility] [place] [address] [id number] [address] [place] [address], [place] [address] Jun, [facility] [address] [id number] [address] [place] [address], [place] [address] Jun, [facility] [place] [address] [id number] [address] [place] [address], [place] [address] Jun, [facility] [address] [id number] [address] [place] [address], [place] [address] 15 Jun, 2012 [facility] [place] [address] [id number] [address] [place] [address], [place] [address] Jun, [facility] [address] [id number] [address] [place] [address], [place] [address] Jun, [facility] [address] [id number] [address] [place] [address], [place] [address] May, [facility] [address] [id number] [address] [place] [address], [place] [address] May, [facility] [address] [id number] [address] [place] [address], [place] [address] May, [facility] [address] [id number] [address] [place] [address], [place] [address] May, [facility] [address] [id number] [address] [place] [address], [place] [address] May, [facility] [address] [id number] [address] [place] [address], [place] [address] May, [facility] [address] [id number] [address] [place] [address], [place] [address] May, [facility] [address] [id number] [address] [place] [address], [place] [address] May, [facility] [address] [id number] [address] [place] [address], [place] [address] May, [facility] [address] [id number] [address] [place] [address], [place] [address] May, [facility] [address] [id number] [address] [place] [address], [place] [address] Apr, [facility] [address] [id number] [address] [place] [address], [place] [address] Apr, [facility] [address] [id number] [address] [place] [address], [place] [address] Apr, [facility] [address] [id number] [address] [place] [address], [place] [address] Apr, [facility] [address] [id number] [address] [place] [address], [place] [address] Apr, [facility] [address] [id number] [address] [place] [address], [place] [address] Apr, [facility] [address] [id number] [address] [place] [address], [place] [address] Apr, [facility] [address] [id number] [address] [place] [address], [place] [address] Apr, [facility] [address] [id number] [address] [place] [address], [place] [address] Apr, [facility] [address] [id number] [address] [place] [address], [place] [address] Apr, [facility] [address] [id number] [address] [place] [address], [place] [address] Apr, [facility] [address] [id number] [address] [place] [address], [place] [address] Apr, [facility] [address] [id number] [address] [place] [address], [place] [address] Mar, [facility] [address] [id number] [address] [place] [address], [place] [address] Mar, [facility] [address] [id number] [address] [place] [address], [place] [address] Mar, [facility] [address] [id number] [address] [place] [address], [place] [address] Mar, [facility] [address] [id number] [address] [place] [address] Mar, [facility] [address] [id number] [address] [place] [address] Mar, [facility] [address] [id number] [address] [place] [address] Mar, [facility] [address] [id number] [address] [place] [address] 30 Mar, 2012 [facility] [address] [id number] [address] [place] [address] Mar, [facility] [address] [id number] [address] [place] [address] Mar, [facility] [address] [id number] [address] [place] [address] Mar, [facility] [address] [id number] [address] [place] [address] Mar, [facility] [address] [id number] [address] [place] [address], [place] [address] 12 Mar, 2012 [facility] [address] [id number] [address] [place] [address], [place] [address] 12 Mar, 2012 [facility] [address] [id number] [address] [place] [address], [place] [address] 03 Mar, 2012 [facility] [address] [id number] [address] [place] [address], [place] [address] 02 Mar, 2012 [facility] [address] [id number] [address] [place] [address], [place] [address] 25 Jan, 2012 [facility] [address] [id number] [address] [place] [address], [place] [address] 24 Jan, 2012 [facility] [address] [id number] [address] [place] [address], [place] [address] 22 Jan, 2012 [facility] [address] [id number] [address] [place] [address], [place] [address] 22 Jan, 2012 [facility] [address] [id number] [address] [place] [address], [place] [address] 21 Jan, 2012 [facility] [address] [id number] [address] [place] [address], [place] [address] 18 Jan, 2012 [facility] [address] [id number] [address] [place] [address], [place] [address] 14 Jan, 2012 [facility] [address] [id number] [address] [place] [address], [place] [address] 07 Jan, 2012 [facility] [address] [id number] [address] [place] [address], [place] [address] 15 Dec, 2011 [facility] [address] [id number] [address] [place] [address], [place] [address] 10 Dec, 2011 [facility] [address] [id number] [address] [place] [address], [place] [address] 09 Dec, 2011 [facility] [address] [id number] [address] [place] [address], [place] [address] 08 Dec, 2011 [facility] [address] [id number] [facility] [place] [address] Dec, [facility] [address] [id number] [address] [place] [address], [place] [address] Dec, [facility] [address] [id number] [address] [place] [address], [place] [address] Dec, [facility] [address] [id number] [address] [place] [address], [place] [address] Nov, [facility] [address] [id number] [address] [place] [address], [place] [address] Oct, [facility] [address] [id number] [address] [place] [address], [place] [address] Aug, [facility] [address] [id number] [address] [place] [address], [place] [address] Jul, [facility] [address] [id number] [address] [place] [address], [place] [address] Jul, [facility] [address] [id number] [address] [place] [address], [place] [address] 16 Jul, 2011 [facility] [address] [id number] [address] [place] [address], [place] [address] 14 Jul, 2011 [facility] [address] [id number] [address] [place] [address], [place] [address] Jul, [facility] [address] [id number] [address] [place] [address], [place] [address] Jul, [facility] [address] [id number] [address] [place] [address], [place] [address] Jul, [facility] [address] [id number] [address] [place] [address], [place] [address] 15 Jul, 2011 [facility] [address] [id number] [address] [place] [address], [place] [address] 13 Jul, 2011 [facility] [address] [id number] [address] [place] [address], [place] [address] Jul, [facility] [place] [address] [id number] [address] [place] [address], [place] [address] Jul, [facility] [address] [id number] [address] [place] [address], [place] [address] Jun, [facility] [address] [id number] [address] [place] [address], [place] [address] Jun, [facility] [address] [id number] [address] [place] [address], [place] [address] Jun, [facility] [address] [id number] [address] [place] [address], [place] [address] Jun, [facility] [address] [id number] [address] [place] [address], [place] [address] Jun, [facility] [place] [address] [id number] [address] [place] [address], [place] [address] Jun, [facility] [place] [address] [id number] [address] [place] [address], [place] [address] Jun, [facility] [place] [address] [id number] [address] [place] [address], [place] [address] May, [facility] [address] [id number] [address] [place] [address], [place] [address] May, [facility] [place] [address] [id number] [address] [place] [address], [place] [address] May, [facility] [address] [id number] [address] [place] [address], [place] [address] May, [facility] [address] [id number] [address] [place] [address], [place] [address] May, [facility] [address] [id number] [address] [place] [address], [place] [address] May, [facility] [address] [id number] [address] [place] [address], [place] [address] May, [facility] [address] [id number] [address] [place] [address] May, [facility] [address] [id number] [address] [place] [address] May, [facility] [address] [id number] [address] [place] [address] May, [facility] [address] [id number] [address] [place] [address] Apr, [facility] [address] [id number] [address] [place] [address] Apr, [facility] [address] [id number] [address] [place] [address] Apr, [facility] [address] [id number] [address] [place] [address] Apr, [facility] [address] [id number] [address] [place] [address] Mar, [facility] [address] [id number] [address] [place] [address] Mar, [facility] [address] [id number] [address] [place] [address] Mar, [facility] [address] [id number] [address] [place] [address] Mar, IMMUNIZATIONS No Known Immunizations SOCIAL HISTORY [...]
--- OUTSIDE RECORDS SUMMARY | 2020-01-03 18:02 | XMS REPORT ---
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 Name Role Phone REYNALDO VIEIRA Unavailable PROBLEMS Type Condition ICD9-CM Code DGN21-JC Code Onset Dates Condition S tatus SNOMED Code Problem Major depressive disorder in partial remission F32 .4 Active 21699617 Problem FRANCIS (generalized anxiety disorder) F41.1 Active 17678267 Problem Conversion disorder (or hysterical neurosis, conversion ty pe) F44.9 Active 33830910 Problem Thoracic disc herniation M51.24 Activ e 496181570 Problem Slow transit constipation K59.01 Acti ve 63649617 Problem Constipation, unspecified constipation type K59.00 Active 26518819 Problem Mild episode of recurrent major depressive disorder F33.0 Active 303827155 Problem High blood pressure I10 Active 45885109 Problem Paroxysmal tachycardia I47.9 Active 30265629 Problem Nonadherence to medication Z91.14 Act vivian 480822767 Problem Seizure disorder G40.909 Active 128 327187 Problem Restless leg syndrome G25.81 Active 79510456 Problem Other chronic pain G89.29 Active 8 4647885 Problem Mild intermittent asthma without complication J45. 20 Active 107337167 Problem Obesity (BMI 30.0-34.9) E66.9 Active [id number] ALLERGIES No Information ENCOUNTERS Encounter Location Date Diagnosis [facility] [place] [address] [facility] [id number] [address] [place] [phone] September, [facility] [place] [address] [facility] [id number] [address] [place] [id number] September, [facility] [place] [address] [facility] [id number] [address] [place] [phone] September, [facility] [place] [address] [facility] [id number] [address] [place] [phone] Aug, [facility] [address] [id number] [place] [id number] Aug, Dental examination Z01.20 [facility] [address] [id number] [address] [place] [address] [id number] 15 Aug, 2019 Dental examination Z01.20 an d Caries K02.9 [facility] [address] [id number] [address] [place] [phone] Aug, [facility] [address] [id number] [address] [place] [phone] Aug, [facility] [address] [facility] [id number] [address] [place] [phone] Aug, Other chronic pain G89.29 an d Back muscle spasm M62.830 [facility] [place] [address] [facility] [id number] [address] [place] [phone] Aug, [facility] [place] [address] [facility] [id number] [address] [place] [id number] Aug, Major depressive disorder in partial remission F32.4 ; FRANCIS (generalized anxiety disorder) F41.1 ; Restless leg syndrome G25.81 and Nonadherence to medication Z91.14 [facility] [place] [address] [facility] [id number] [address] [place] [phone] Aug, [facility] [place] [address] [facility] [id number] [address] [place] [phone] Jul, [facility] [place] [address] [facility] [id number] [address] [place] [id number] Jul, [facility] [place] [address] [facility] [id number] [address] [place] [phone] Jul, Major depressive disorder in partial remission F32.4 ; FRANCIS (generalized anxiety disorder) F41.1 ; Restless leg syndrome G25.81 and High blood pressure I10 [facility] [place] [address] [facility] [id number] [address] [place] [phone] 17 Jul, 2019 [facility] [place] [address] [id number] [address] [place] [phone] Jul, [facility] [place] [address] [id number] [address] [place] [phone] Jun, [facility] [place] [address] [id number] [address] [place] [phone] May, [facility] [place] [address] [id number] [address] [place] [phone] Apr, [facility] [place] [address] [id number] [address] [place] [phone] Apr, [facility] [place] [address] [id number] [address] [place] [phone] Mar, [facility] [place] [address] [facility] [id number] [address] [place] [phone] Mar, Major depressive disorder in partial remission F32.4 ; FRANCIS (generalized anxiety disorder) F41.1 and Restless leg syndrome G25.81 [facility] [place] [address] [id number] [address] [place] [id number] Mar, Obesity (BMI 30.0-34.9) E66. 9 [facility] [place] [address] [id number] [address] [place] [phone] Jan, [facility] [address] [facility] [id number] [address] [place] [phone] Jan, Burn T30.0 [facility] [place] [address] [id number] [address] [place] [phone] Dec, [facility] [place] [address] [facility] [id number] [address] [place] [id number] Nov, [facility] [place] [address] [facility] [id number] [address] [place] [phone] Nov, [facility] [address] [id number] [address] [place] [id number] Nov, Dental examination Z01.20 [facility] [place] [address] [facility] [id number] [address] [place] [phone] September, [facility] [id number] [place] [id number] September, Decay, teeth K02.9 and Denta l examination Z01.20 [facility] [address] [facility] [id number] [address] [place] [address] [id number] September, Dental examination Z01.20 [facility] [place] [address] [facility] [id number] [place] [phone] September, FRANCIS (generalized anxiety dis order) F41.1 ; Major depressive disorder in partial remission F32.4 and Restless leg syndrome G25.81 [place] [address] [phone] Aug, [place] [address] [phone] Jul, [place] [address] [phone] Jul, Encounter to discuss test re sults Z71.2 [place] [address] [phone] Jul, Pelvic pain R10.2 ; Screenin g for breast cancer Z12.31 and Obesity (BMI 30.0-34.9) E66.9 [place] [address] [place] [id number] [address] [place] [phone] Jul, Mild intermittent asthma wit hout complication J45.20 [place] [address] [place] [id number] [place] [phone] Jul, Major depressive disorder in partial remission F32.4 and FRANCIS (generalized anxiety disorder) F41.1 [place] [address] [address] [place] [id number] [address] [place] [phone] Jul, [place] [address] [place] [address] Jun, [facility] [place] [address] [id number] [address] [place] [phone] May, Major depressive disorder in partial remission F32.4 ; FRANCIS (generalized anxiety disorder) F41.1 and Restless leg syndrome G25.81 [facility] [place] [address] [id number] [address] [place] [phone] Apr, [facility] [place] [address] [id number] [address] [place] [id number] Mar, [facility] [address] [id number] [address] [place] [phone] Jan, Pain in thoracic spine M54.6 and Other chronic pain G89.29 [facility] [place] [address] [id number] [address] [place] [phone] Jan, [facility] [place] [address] [id number] [address] [place] [id number] Jan, Mild episode of recurrent ma saray depressive disorder F33.0 ; FRANCIS (generalized anxiety disorder) F41.1 and Restless leg syndrome G25.81 [facility] [place] [address] [id number] [address] [place] [phone] Dec, [facility] [place] [address] [id number] [address] [place] [id number] Dec, Hospital discharge follow-up Z09 [facility] [place] [address] [id number] [address] [place] [phone] Nov, [facility] [place] [address] [id number] [address] [place] [phone] Nov, [facility] [place] [address] [id number] [address] [place] [id number] September, [facility] [place] [address] [id number] [address] [place] [phone] September, [facility] [place] [address] [id number] [address] [place] [phone] September, Major depressive disorder in partial remission F32.4 ; FRANCIS (generalized anxiety disorder) F41.1 and Restless leg syndrome G25.81 [facility] [place] [address] [facility] [id number] [address] [place] [phone] September, [facility] [place] [address] [facility] [id number] [address] [place] [id number] Jul, [facility] [place] [address] [facility] [id number] [address] [place] [phone] Jul, Dorsalgia, unspecified M54.9 [place] [address] [address] [facility] [id number] [address] [place] [phone] Jul, Mild episode of recurrent ma saray depressive disorder F33.0 and FRANCIS (generalized anxiety disorder) F41.1 [place] [address] [address] [place] [id number] [address] [place] [id number] May, [facility] [address] [facility] [id number] [address] [place] [id number] May, Dysuria R30.0 and Acute cyst itis with hematuria N30.01 [place] [address] [facility] [id number] [address] [place] [id number] Apr, [facility] [place] [address] [facility] [id number] [address] [place] [phone] Apr, Major depressive disorder in partial remission F32.4 and FRANCIS (generalized anxiety disorder) F41.1 [place] [address] [facility] [id number] [address] [place] [id number] Mar, Paroxysmal tachycardia I47.9 [place] [address] [facility] [id number] [address] [place] [id number] Mar, Paroxysmal tachycardia I47.9 and Pain of left lower extremity M79.605 [place] [address] [address] [place] [id number] [address] [place] [id number] Mar, FRANCIS (generalized anxiety dis order) F41.1 and Major depressive disorder in partial remission F32.4 [facility] [place] [address] [facility] [id number] [address] [place] [id number] Jan, [facility] [place] [address] [facility] [id number] [address] [place] [id number] Jan, [facility] [place] [address] [facility] [id number] [facility] [place] [phone] Jan, [facility] [address] [facility] [id number] [address] [place] [id number] Dec, Constipation, unspecified co nstipation type K59.00 [place] [address] [facility] [id number] [place] [phone] Dec, [place] [address] [place] [id number] [place] [phone] Nov, [place] [address] [place] [id number] [place] [phone] Nov, Major depressive disorder in partial remission F32.4 and FRANCIS (generalized anxiety disorder) F41.1 [facility] [address] [place] [id number] [address] [place] [phone] Oct, Abdominal pain R10.9 and Slo w transit constipation K59.01 [place] [address] [address] [place] [id number] [place] [phone] Aug, Major depressive disorder in partial remission F32.4 ; FRANCIS (generalized anxiety disorder) F41.1 ; Conversion disorder (or hysterical neurosis, conversion type) F44.9 ; Dorsalgia, unspecified M54.9 and Long-term use of high-risk medication Z79.899 [facility] [place] [address] [place] [id number] [address] [place] [id number] Aug, [facility] [place] [address] [place] [id number] [address] [place] [id number] Jul, Paroxysmal tachycardia I47.9 [facility] [place] [address] [id number] [address] [place] [id number] Jul, Paroxysmal tachycardia I47.9 [facility] [place] [address] [id number] [address] [place] [id number] Jun, [facility] [place] [address] [id number] [address] [place] [id number] Jun, Major depressive disorder in partial remission F32.4 ; FRANCIS (generalized anxiety disorder) F41.1 and Conversion disorder (or hysterical neurosis, conversion type) F44.9 [facility] [address] [id number] [address] [place] [id number] May, Pelvic pain R10.2 [facility] [address] [id number] [address] [place] [phone] Apr, Gastroenteritis K52.9 [facility] [address] [id number] [address] [place] [phone] Apr, Blood in urine R31.9 and Acu te cystitis with hematuria N30.01 [facility] [place] [address] [id number] [address] [place] [phone] 17 Apr, 2016 Major depressive disorder in partial remission F32.4 ; FRANCIS (generalized anxiety disorder) F41.1 and Conversion disorder (or hysterical neurosis, conversion type) F44.9 [facility] [place] [address] [id number] [address] [place] [phone] Apr, [facility] [place] [address] [id number] [address] [place] [phone] Apr, Abnormal mammogram R92.8 [place] [address] [id number] [address] [place] [phone] Mar, [facility] [place] [address] [id number] [address] [place] [id number] Mar, Gastroenteritis K52.9 and Se izure disorder G40.909 [place] [address] [id number] [address] [place] [id number] Dec, [facility] [address] [id number] [address] [place] [id number] Dec, Other headache syndrome G44. 89 [facility] [place] [address] [id number] [address] [place] [id number] Dec, [facility] [place] [address] [id number] [address] [place] [id number] Dec, Thoracic disc herniation M51 .24 [facility] [place] [address] [id number] [address] [place] [id number] Dec, [facility] [place] [address] [id number] [address] [place] [id number] Nov, Major depressive disorder in partial remission F32.4 and FRANCIS (generalized anxiety disorder) F41.1 [facility] [place] [address] [id number] [address] [place] [id number] Nov, [facility] [place] [address] [id number] [address] [place] [id number] Nov, Dorsalgia, unspecified M54.9 [facility] [place] [address] [id number] [address] [place] [phone] Oct, [facility] [place] [address] [id number] [address] [place] [id number] September, [facility] [place] [address] [id number] [address] [place] [id number] Aug, [facility] [place] [address] [id number] [address] [place] [phone] Aug, Major depressive disorder in partial remission F32.4 and FRANCIS (generalized anxiety disorder) F41.1 [facility] [place] [address] [id number] [address] [place] [id number] Aug, [facility] [place] [address] [id number] [address] [place] [id number] Jul, Abnormal mammogram R92.8 [facility] [place] [address] [id number] [address] [place] [id number] Jul, [facility] [place] [address] [id number] [address] [place] [id number] Jul, [facility] [place] [address] [id number] [address] [place] [id number] Jul, [facility] [place] [address] [id number] [address] [place] [id number] Jul, [facility] [place] [address] [id number] [address] [place] [id number] Jul, [facility] [place] [address] [id number] [address] [place] [id number] Jul, [facility] [place] [address] [id number] [address] [place] [id number] Jun, Major depressive disorder in partial remission F32.4 and FRANCIS (generalized anxiety disorder) F41.1 [facility] [place] [address] [id number] [address] [place] [id number] Jun, [facility] [place] [address] [id number] [address] [place] [id number] May, [facility] [place] [address] [facility] [id number] [address] [place] [id number] Apr, [facility] [place] [address] [id number] [address] [place] [id number] Mar, Major depressive disorder, r ecurrent episode, moderate F33.1 ; PTSD (post-traumatic stress disorder) F43.10 and FRANCIS (generalized anxiety disorder) F41.1 [facility], [place], [facility] [address] [id number] [address] [place] [id number] Mar, [facility], [place], [facility] [address] [id number] [address] [place] [id number] Mar, [facility], [place], [facility] [address] [id number] [address] [place] [id number] 07 Mar, 2015 [facility] [address] [id number] [address] [place] [id number] 07 Mar, 2015 [facility] [address] [id number] [address] [place] [id number] 23 Jan, 2015 [facility] [address] [id number] [address] [place] [id number] 15 Jan, 2015 [facility] [address] [id number] [address] [place] [id number] 15 Jan, 2015 [facility] [address] [id number] [address] [place] [id number] 14 Jan, 2015 Thoracic disc herniation 722 .11 [facility] [address] [id number] [address] [place] [id number] Dec, [facility] [address] [id number] [address] [place] [id number] Dec, [facility] [address] [id number] [address] [place] [phone] Dec, [facility] [address] [id number] [address] [place] [id number] Nov, [facility] [address] [id number] [address] [place] [id number] Nov, Generalized anxiety disorder 300.02 ; Posttraumatic stress disorder 309.81 and Major depressive disorder, recurrent episode, moderate 296.32 [facility] [address] [id number] [address] [place] [id number] Nov, [facility] [address] [id number] [address] [place] [id number] Nov, [facility] [address] [id number] [address] [place] [id number] Oct, [facility] [facility] [address] [id number] [address] [place] [address] Oct, [facility] [address] [id number] [address] [place] [address], [place] [address] 04 Oct, 2014 [facility] [address] [id number] [address] [place] [address], [place] [address] September, [facility] [address] [id number] [address] [place] [address], [place] [address] September, [facility] [address] [id number] [address] [place] [address], [place] [address] Aug, [facility] [address] [id number] [address] [place] [address], [place] [address] Aug, [facility] [address] [id number] [address] [place] [address], [place] [address] Jul, [facility] [address] [id number] [address] [place] [address], [place] [address] Jul, [facility] [address] [id number] [address] [place] [address], [place] [address] 17 Jul, 2014 [facility] [address] [id number] [address] [place] [address], [place] [address] 17 Jul, 2014 [facility] [address] [id number] [address] [place] [address], [place] [address] Jul, [facility] [address] [id number] [address] [place] [address], [place] [address] 16 Jul, 2014 [facility] [address] [id number] [address] [place] [address], [place] [address] 19 Jul, 2014 [facility] [address] [id number] [address] [place] [address], [place] [address] 19 Jul, 2014 [facility] [address] [id number] [address] [place] [address], [place] [address] Jul, [facility] [address] [id number] [address] [place] [address], [place] [address] 13 Jul, 2014 [facility] [address] [id number] [address] [place] [address], [place] [address] Jun, [facility] [address] [id number] [address] [place] [address], [place] [address] Jun, [facility] [address] [id number] [address] [place] [address], [place] [address] Jun, [facility] [address] [id number] [address] [place] [address], [place] [address] May, [facility] [address] [id number] [address] [place] [address], [place] [address] Apr, [facility] [address] [id number] [address] [place] [address], [place] [address] Apr, [facility] [address] [id number] [address] [place] [address], [place] [address] Apr, [facility] [address] [id number] [address] [place] [address], [place] [address] Apr, [facility] [address] [id number] [address] [place] [address], [place] [address] Apr, [facility] [address] [id number] [address] [place] [address], [place] [address] Apr, [facility] [address] [id number] [address] [place] [address], [place] [address] Apr, [facility] [address] [id number] [address] [place] [address] Apr, [facility] [address] [id number] [address] [place] [address] Mar, [facility] [address] [id number] [address] [place] [address], [place] [address] Mar, [facility] [address] [id number] [address] [place] [address] Mar, [facility] [address] [id number] [address] [place] [address], [place] [address] Mar, [facility] [address] [id number] [address] [place] [address], [place] [address] 24 Mar, 2014 [facility] [address] [id number] [address] [place] [address], [place] [address] 24 Mar, 2014 [facility] [address] [id number] [address] [place] [address], [place] [address] 24 Mar, 2014 [facility] [address] [id number] [address] [place] [address], [place] [address] Mar, [facility] [address] [id number] [address] [place] [address], [place] [address] 23 Mar, 2014 [facility] [address] [id number] [address] [place] [address], [place] [address] Mar, [facility] [address] [id number] [address] [place] [address], [place] [address] 17 Mar, 2014 [facility] [address] [id number] [address] [place] [address], [place] [address] Mar, [facility] [address] [id number] [address] [place] [address], [place] [address] 14 Mar, 2014 [facility] [address] [id number] [address] [place] [address], [place] [address] 07 Mar, 2014 [facility] [address] [id number] [address] [place] [address], [place] [address] 07 Mar, 2014 [facility] [address] [id number] [address] [place] [address], [place] [address] 06 Mar, 2014 [facility] [address] [id number] [address] [place] [address], [place] [address] 06 Mar, 2014 [facility] [address] [id number] [address] [place] [address], [place] [address] 19 Jan, 2013 [facility] [address] [id number] [address] [place] [address], [place] [address] 19 Jan, 2013 [facility] [address] [id number] [address] [place] [address], [place] [address] 09 Jan, 2013 [facility] [address] [id number] [address] [place] [address], [place] [address] 09 Sep, 2013 [facility] [address] [id number] [address] [place] [address], [place] [address] 05 Sep, 2013 [facility] [address] [id number] [address] [place] [address], [place] [address] 05 Sep, 2013 [facility] [address] [id number] [address] [place] [address], [place] [address] 05 Sep, 2013 [facility] [address] [id number] [address] [place] [address], [place] [address] 05 Sep, 2013 [facility] [address] [id number] [address] [place] [address], [place] [address] 03 Jan, 2013 [facility] [address] [id number] [address] [place] [address], [place] [address] Jan, 2013 [facility] [address] [id number] [address] [place] [address], [place] [address] Jan, 2013 [facility] [address] [id number] [address] [place] [address], [place] [address] Jan, 2013 [facility] [address] [id number] [address] [place] [address], [place] [address] Jan, 2013 [facility] [address] [id number] [address] [place] [address], [place] [address] Dec, 2013 [facility] [address] [id number] [address] [place] [address], [place] [address] Dec, 2013 [facility] [address] [id number] [address] [place] [address], [place] [address] Dec, [facility] [address] [id number] [address] [place] [address], [place] [address] Dec, [facility] [address] [id number] [address] [place] [address], [place] [address] Dec, 2013 [facility] [address] [id number] [address] [place] [address], [place] [address] Dec, [facility] [id number] Dec, [facility] [id number] Dec, [facility] [address] [id number] [address] [place] [address], [place] [address] Dec, [facility] [address] [id number] [address] [place] [address], [place] [address] Dec, [facility] [address] [id number] [address] [place] [address], [place] [address] Dec, [facility] [address] [id number] [address] [place] [address], [place] [address] Dec, [facility] [address] [id number] [address] [place] [address], [place] [address] Nov, [facility] [address] [id number] [address] [place] [address], [place] [address] Nov, [facility] [address] [id number] [address] [place] [address], [place] [address] Nov, [facility] [address] [id number] [address] [place] [address], [place] [address] Nov, [facility] [address] [id number] [address] [place] [address], [place] [address] Nov, [facility] [address] [id number] [address] [place] [address], [place] [address] Nov, [facility] [address] [id number] [address] [place] [address], [place] [address] Nov, [facility] [address] [id number] [address] [place] [address], [place] [address] Nov, [facility] [address] [id number] [address] [place] [address], [place] [address] Nov, [facility] [address] [id number] [address] [place] [address], [place] [address] Nov, [facility] [address] [id number] [facility] [place] [address] Nov, [facility] [address] [id number] [facility] [place] [address] Nov, [facility] [address] [id number] [facility] [place] [address] Nov, [facility] [address] [id number] [address] [place] [address], [place] [address] Oct, [facility] [address] [id number] [address] [place] [address], [place] [address] Oct, [facility] [address] [id number] [address] [place] [address], [place] [address] Oct, [facility] [address] [id number] [address] [place] [address], [place] [address] Oct, [facility] [address] [id number] [address] [place] [address], [place] [address] Oct, [facility] [address] [id number] [address] [place] [address], [place] [address] Oct, [facility] [address] [id number] [address] [place] [address], [place] [address] Oct, [facility] [address] [id number] [address] [place] [address], [place] [address] Oct, [facility] [address] [id number] [address] [place] [address], [place] [address] Oct, [facility] [address] [id number] [address] [place] [address], [place] [address] Oct, [facility] [address] [id number] [address] [place] [address], [place] [address] Oct, [facility] [address] [id number] [address] [place] [address], [place] [address] Oct, [facility] [address] [id number] [facility] [place] [address] September, [facility] [address] [id number] [facility] [place] [address] September, [facility] [address] [id number] [facility] [place] [address] September, [facility] [address] [id number] [address] [place] [address], [place] [address] September, [facility] [address] [id number] [address] [place] [address], [place] [address] Aug, [facility] [address] [id number] [address] [place] [address], [place] [address] Aug, [facility] [address] [id number] [address] [place] [address], [place] [address] Aug, [facility] [address] [id number] [address] [place] [address], [place] [address] Aug, [facility] [address] [id number] [address] [place] [address], [place] [address] Aug, [facility] [address] [id number] [address] [place] [address], [place] [address] Aug, [facility] [address] [id number] [address] [place] [address], [place] [address] Aug, [facility] [address] [id number] [address] [place] [address], [place] [address] Jul, [facility] [address] [id number] [address] [place] [address], [place] [address] Jul, [facility] [address] [id number] [address] [place] [address], [place] [address] Jul, [facility] [address] [id number] [address] [place] [address], [place] [address] Jul, [facility] [address] [id number] [address] [place] [address], [place] [address] Jul, [facility] [address] [id number] [address] [place] [address], [place] [address] Jul, [facility] [address] [id number] [address] [place] [address], [place] [address] 18 Jul, 2013 [facility] [address] [id number] [address] [place] [address], [place] [address] 18 Jul, 2013 [facility] [address] [id number] [address] [place] [address], [place] [address] Jul, [facility] [address] [id number] [address] [place] [address], [place] [address] Jul, [facility] [address] [id number] [address] [place] [address], [place] [address] Jul, [facility] [address] [id number] [address] [place] [address], [place] [address] 18 Jul, 2013 [facility] [address] [id number] [address] [place] [address], [place] [address] 14 Jul, 2013 [facility] [address] [id number] [address] [place] [address], [place] [address] 14 Jul, 2013 [facility] [address] [id number] [address] [place] [address], [place] [address] Jul, [facility] [address] [id number] [address] [place] [address], [place] [address] Jul, [facility] [address] [id number] [address] [place] [address], [place] [address] Jul, [facility] [address] [id number] [address] [place] [address], [place] [address] Jul, [facility] [address] [id number] [address] [place] [address], [place] [address] Jun, [facility] [address] [id number] [address] [place] [address], [place] [address] Jun, [facility] [address] [id number] [address] [place] [address], [place] [address] 15 Jun, 2013 [facility] [address] [id number] [address] [place] [address], [place] [address] 15 Jun, 2013 [facility] [address] [id number] [address] [place] [address], [place] [address] 14 Jun, 2013 [facility] [address] [id number] [address] [place] [address], [place] [address] 14 Jun, 2013 [facility] [address] [id number] [address] [place] [address], [place] [address] 14 Jun, 2013 [facility] [address] [id number] [address] [place] [address], [place] [address] 14 Jun, 2013 [facility] [address] [id number] [address] [place] [address], [place] [address] 14 Jun, 2013 [facility] [address] [id number] [address] [place] [address], [place] [address] 14 Jun, 2013 [facility] [address] [id number] [address] [place] [address], [place] [address] 27 May, 2013 [facility] [address] [id number] [address] [place] [address], [place] [address] 27 May, 2013 [facility] [address] [id number] [address] [place] [address], [place] [address] 26 May, 2013 [facility] [address] [id number] [address] [place] [address], [place] [address] 19 May, 2013 [facility] [address] [id number] [address] [place] [address], [place] [address] 19 May, 2013 [facility] [address] [id number] [address] [place] [address], [place] [address] 16 May, 2013 [facility] [address] [id number] [address] [place] [address], [place] [address] 16 May, 2013 [facility] [address] [id number] [address] [place] [address], [place] [address] 16 May, 2013 [facility] [address] [id number] [address] [place] [address], [place] [address] 16 May, 2013 [facility] [address] [id number] [address] [place] [address], [place] [address] 13 May, 2013 [facility] [address] [id number] [address] [place] [address], [place] [address] 13 May, 2013 [facility] [address] [id number] [address] [place] [address], [place] [address] 11 May, 2013 [facility] [address] [id number] [address] [place] [address], [place] [address] 20 Apr, 2013 [facility] [address] [id number] [address] [place] [address], [place] [address] 18 Apr, 2013 [facility] [address] [id number] [address] [place] [address], [place] [address] 18 Apr, 2013 [facility] [address] [id number] [address] [place] [id number] Apr, [facility] [address] [id number] [address] [place] [address], [place] [address] Apr, [facility] [address] [id number] [address] [place] [id number] 08 Apr, 2013 [facility] [address] [id number] [address] [place] [id number] 08 Apr, 2013 [facility] [address] [id number] [address] [place] [id number] 07 Apr, 2013 [facility] [address] [id number] [address] [place] [phone] Apr, [facility] [address] [id number] [address] [place] [id number] 07 Apr, 2013 [facility] [address] [id number] [address] [place] [id number] 07 Apr, 2013 [facility] [address] [id number] [address] [place] [id number] Mar, [facility] [address] [id number] [address] [place] [address], [place] [address] Mar, [facility] [address] [id number] [address] [place] [address], [place] [address] Mar, [facility] [address] [id number] [address] [place] [address], [place] [address] Mar, [facility] [address] [id number] [address] [place] [address], [place] [address] Mar, [facility] [address] [id number] [address] [place] [address], [place] [address] Mar, [facility] [address] [id number] [address] [place] [address], [place] [address] Mar, [facility] [address] [id number] [address] [place] [address], [place] [address] Mar, [facility] [address] [id number] [address] [place] [address], [place] [address] 18 Mar, 2013 [facility] [address] [id number] [address] [place] [address], [place] [address] 15 Mar, 2013 [facility] [address] [id number] [address] [place] [address], [place] [address] 15 Mar, 2013 [facility] [address] [id number] [address] [place] [id number] Mar, [facility] [address] [id number] [address] [place] [id number] 30 Jan, 2013 [facility] [address] [id number] [address] [place] [address], [place] [address] 25 Jan, 2012 [facility] [address] [id number] [address] [place] [address], [place] [address] 20 Jan, 2012 [facility] [address] [id number] [address] [place] [address], [place] [address] 10 Jan, 2012 [facility] [address] [id number] [facility] [place] [address] Dec, [facility] [address] [id number] [facility] [place] [address] Dec, [facility] [address] [id number] [facility] [place] [address] Dec, [facility] [address] [id number] [address] [place] [address], [place] [address] Dec, [facility] [address] [id number] [address] [place] [address], [place] [address] Dec, [facility] [address] [id number] [address] [place] [address], [place] [address] Dec, [facility] [address] [id number] [address] [place] [address], [place] [address] Dec, [facility] [address] [id number] [address] [place] [address], [place] [address] Dec, [facility] [address] [id number] [address] [place] [address], [place] [address] Dec, [facility] [address] [id number] [address] [place] [address], [place] [address] Nov, [facility] [address] [id number] [address] [place] [address], [place] [address] Nov, [facility] [address] [id number] [address] [place] [address], [place] [address] Nov, [facility] [address] [id number] [address] [place] [address], [place] [address] Nov, [facility] [address] [id number] [address] [place] [address], [place] [address] Nov, [facility] [address] [id number] [address] [place] [address], [place] [address] Nov, [facility] [address] [id number] [address] [place] [address], [place] [address] Nov, [facility] [address] [id number] [facility] [place] [address] Nov, [facility] [address] [id number] [facility] [place] [address] Oct, [facility] [address] [id number] [address] [place] [address], [place] [address] Oct, [facility] [address] [id number] [address] [place] [address], [place] [address] Oct, [facility] [address] [id number] [address] [place] [address], [place] [address] Oct, [facility] [address] [id number] [address] [place] [address], [place] [address] Oct, [facility] [address] [id number] [address] [place] [address], [place] [address] Oct, [facility] [address] [id number] [address] [place] [address], [place] [address] Oct, [facility] [address] [id number] [address] [place] [address], [place] [address] Oct, [facility] [address] [id number] [address] [place] [address], [place] [address] Oct, [facility] [address] [id number] [address] [place] [address], [place] [address] 18 Oct, 2012 [facility] [address] [id number] [address] [place] [address], [place] [address] 17 Oct, 2012 [facility] [address] [id number] [address] [place] [address], [place] [address] 14 Oct, 2012 [facility] [address] [id number] [address] [place] [address], [place] [address] 07 Oct, 2012 [facility] [address] [id number] [address] [place] [address], [place] [address] September, [facility] [address] [id number] [address] [place] [address], [place] [address] September, [facility] [address] [id number] [address] [place] [address], [place] [address] September, [facility] [address] [id number] [address] [place] [address], [place] [address] Aug, [facility] [address] [id number] [address] [place] [address], [place] [address] Aug, [facility] [address] [id number] [address] [place] [address], [place] [address] Aug, [facility] [address] [id number] [address] [place] [address], [place] [address] Aug, [facility] [address] [id number] [address] [place] [address], [place] [address] Aug, [facility] [address] [id number] [address] [place] [address], [place] [address] Aug, [facility] [address] [id number] [address] [place] [address], [place] [address] Aug, [facility] [address] [id number] [address] [place] [address], [place] [address] Jul, [facility] [address] [id number] [address] [place] [address], [place] [address] Jul, [facility] [address] [id number] [address] [place] [address], [place] [address] Jul, [facility] [address] [id number] [address] [place] [address], [place] [address] Jul, [facility] [address] [id number] [address] [place] [address], [place] [address] Jul, [facility] [address] [id number] [address] [place] [address], [place] [address] Jul, [facility] [address] [id number] [address] [place] [address], [place] [address] Jul, [facility] [address] [id number] [address] [place] [address], [place] [address] Jul, [facility] [address] [id number] [address] [place] [address], [place] [address] Jul, [facility] [address] [id number] [address] [place] [address], [place] [address] Jul, [facility] [address] [id number] [address] [place] [address], [place] [address] Jul, [facility] [address] [id number] [address] [place] [address], [place] [address] Jul, [facility] [address] [id number] [address] [place] [address], [place] [address] Jul, [facility] [address] [id number] [address] [place] [address], [place] [address] Jun, [facility] [address] [id number] [address] [place] [address], [place] [address] Jun, [facility] [address] [id number] [address] [place] [address], [place] [address] Jun, [facility] [address] [id number] [address] [place] [address], [place] [address] Jun, [facility] [address] [id number] [address] [place] [address], [place] [address] Jun, [facility] [address] [id number] [address] [place] [address], [place] [address] Jun, [facility] [address] [id number] [address] [place] [address], [place] [address] Jun, [facility] [address] [id number] [address] [place] [address], [place] [address] May, [facility] [address] [id number] [address] [place] [address], [place] [address] May, [facility] [address] [id number] [address] [place] [address], [place] [address] May, [facility] [address] [id number] [address] [place] [address], [place] [address] May, [facility] [address] [id number] [address] [place] [address], [place] [address] May, [facility] [address] [id number] [address] [place] [address], [place] [address] May, [facility] [address] [id number] [address] [place] [address], [place] [address] May, [facility] [address] [id number] [address] [place] [address], [place] [address] May, [facility] [address] [id number] [address] [place] [address], [place] [address] May, [facility] [address] [id number] [address] [place] [address], [place] [address] May, [facility] [address] [id number] [address] [place] [address], [place] [address] Apr, [facility] [address] [id number] [address] [place] [address], [place] [address] Apr, [facility] [address] [id number] [address] [place] [address], [place] [address] Apr, [facility] [address] [id number] [address] [place] [address], [place] [address] Apr, [facility] [address] [id number] [address] [place] [address], [place] [address] Apr, [facility] [address] [id number] [address] [place] [address], [place] [address] Apr, [facility] [address] [id number] [address] [place] [address], [place] [address] Apr, [facility] [address] [id number] [address] [place] [address], [place] [address] Apr, [facility] [address] [id number] [address] [place] [address], [place] [address] Apr, [facility] [address] [id number] [address] [place] [address], [place] [address] Apr, [facility] [address] [id number] [address] [place] [address], [place] [address] Apr, [facility] [address] [id number] [address] [place] [address], [place] [address] Apr, [facility] [address] [id number] [address] [place] [address], [place] [address] Mar, [facility] [address] [id number] [address] [place] [address], [place] [address] Mar, [facility] [address] [id number] [address] [place] [address], [place] [address] Mar, [facility] [address] [id number] [address] [place] [address], [place] [address] Mar, [facility] [address] [id number] [address] [place] [address], [place] [address] Mar, [facility] [address] [id number] [address] [place] [address], [place] [address] Mar, [facility] [address] [id number] [address] [place] [address], [place] [address] Mar, [facility] [address] [id number] [address] [place] [address], [place] [address] 30 Mar, 2012 [facility] [address] [id number] [address] [place] [address], [place] [address] Mar, [facility] [address] [id number] [address] [place] [address], [place] [address] Mar, [facility] [address] [id number] [address] [place] [address], [place] [address] 16 Mar, 2012 [facility] [address] [id number] [address] [place] [address] 16 Mar, 2012 [facility] [address] [id number] [address] [place] [address], [place] [address] 12 Mar, 2012 [facility] [address] [id number] [address] [place] [address], [place] [address] 12 Mar, 2012 [facility] [address] [id number] [address] [place] [address], [place] [address] 03 Mar, 2012 [facility] [address] [id number] [address] [place] [address], [place] [address] 02 Mar, 2012 [facility] [address] [id number] [address] [place] [address], [place] [address] 25 Jan, 2012 [facility] [address] [id number] [address] [place] [address], [place] [address] 24 Jan, 2012 [facility] [address] [id number] [address] [place] [address], [place] [address] 22 Jan, 2012 [facility] [address] [id number] [address] [place] [address], [place] [address] 22 Jan, 2012 [facility] [address] [id number] [address] [place] [address], [place] [address] 21 Jan, 2012 [facility] [address] [id number] [address] [place] [address], [place] [address] 18 Jan, 2012 [facility] [address] [id number] [address] [place] [address], [place] [address] 14 Jan, 2012 [facility] [address] [id number] [address] [place] [address], [place] [address] 07 Jan, 2012 [facility] [address] [id number] [address] [place] [address], [place] [address] 15 Dec, 2011 [facility] [address] [id number] [address] [place] [address], [place] [address] 10 Dec, 2011 [facility] [address] [id number] [address] [place] [address], [place] [address] 09 Dec, 2011 [facility] [address] [id number] [address] [place] [address], [place] [address] Dec, [facility] [address] [id number] [address] [place] [address], [place] [address] Dec, [facility] [address] [id number] [address] [place] [address], [place] [address] Dec, [facility] [address] [id number] [address] [place] [address], [place] [address] Dec, [facility] [address] [id number] [address] [place] [address], [place] [address] Nov, [facility] [address] [id number] [address] [place] [address], [place] [address] Oct, [facility] [address] [id number] [address] [place] [address], [place] [address] Aug, [facility] [address] [id number] [address] [place] [address], [place] [address] Jul, [facility] [address] [id number] [address] [place] [address], [place] [address] Jul, [facility] [address] [id number] [address] [place] [address], [place] [address] 16 Jul, 2011 [facility] [address] [id number] [address] [place] [address], [place] [address] 14 Jul, 2011 [facility] [address] [id number] [address] [place] [address], [place] [address] 07 Jul, 2011 [facility] [address] [id number] [address] [place] [address], [place] [address] 02 Jul, 2011 [facility] [address] [id number] [address] [place] [address], [place] [address] 21 Jul, 2011 [facility] [address] [id number] [address] [place] [address], [place] [address] 15 Jul, 2011 [facility] [address] [id number] [address] [place] [address], [place] [address] 13 Jul, 2011 [facility] [address] [id number] [address] [place] [address], [place] [address] Jul, [facility] [address] [id number] [address] [place] [address], [place] [address] Jul, [facility] [address] [id number] [address] [place] [address], [place] [address] Jun, [facility] [address] [id number] [address] [place] [address], [place] [address] Jun, [facility] [address] [id number] [address] [place] [address], [place] [address] Jun, [facility] [address] [id number] [address] [place] [address], [place] [address] Jun, [facility] [address] [id number] [address] [place] [address], [place] [address] Jun, [facility] [address] [id number] [address] [place] [address], [place] [address] Jun, [facility] [address] [id number] [address] [place] [address], [place] [address] Jun, [facility] [address] [id number] [address] [place] [address], [place] [address] May, [facility] [address] [id number] [address] [place] [address], [place] [address] May, [facility] [address] [id number] [address] [place] [address], [place] [address] May, [facility] [address] [id number] [address] [place] [address], [place] [address] May, [facility] [address] [id number] [address] [place] [address], [place] [address] May, [facility] [address] [id number] [address] [place] [address], [place] [address] May, [facility] [address] [id number] [address] [place] [id number] May, [facility] [place] [address] [id number] [address] [place] [id number] May, [facility] [place] [address] [id number] [address] [place] [address] May, [facility] [place] [address] [id number] [address] [place] [address] May, [facility] [place] [address] [id number] [address] [place] [address] Apr, [facility] [place] [address] [id number] [address] [place] [id number] Apr, [facility] [place] [address] [id number] [address] [place] [id number] Apr, [facility] [place] [address] [id number] [address] [place] [id number] Apr, [facility] [place] [address] [id number] [address] [place] [id number] Mar, [facility] [place] [address] [id number] [address] [place] [id number] Mar, [facility] [place] [address] [id number] [address] [place] [id number] Mar, [facility] [place] [address] [id number] [address] [place] [id number] Mar, IMMUNIZATIONS No Known Immunizations SOCIAL HISTORY [...]
--- OUTSIDE RECORDS SUMMARY | 2020-01-03 18:02 | XMS REPORT ---
Author Author Pattie Petersen Organization [facility] Address [address] [place] [address] Care Team Providers [employer] Name Role Phone ROMMEL Petersen Unavailable PROBLEMS Type Condition ICD9-CM Code NYE25-IR Code Onset Dates Condition S tatus SNOMED Code Problem Major depressive disorder in partial remission F32 .4 Active 21096218 Problem FRANCIS (generalized anxiety disorder) F41.1 Active 39291785 Problem Conversion disorder (or hysterical neurosis, conversion ty pe) F44.9 Active 45821248 Problem Thoracic disc herniation M51.24 Activ e 147797958 Problem Slow transit constipation K59.01 Acti ve 62868767 Problem Constipation, unspecified constipation type K59.00 Active 02366256 Problem Mild episode of recurrent major depressive disorder F33.0 Active 982749690 Problem High blood pressure I10 Active 54741032 Problem Paroxysmal tachycardia I47.9 Active 53954137 Problem Nonadherence to medication Z91.14 Act vivian 012275110 Problem Seizure disorder G40.909 Active 128 769195 Problem Restless leg syndrome G25.81 Active 07567702 Problem Other chronic pain G89.29 Active 8 7376869 Problem Mild intermittent asthma without complication J45. 20 Active 206054406 Problem Obesity (BMI 30.0-34.9) E66.9 Active [id number] ALLERGIES No Information ENCOUNTERS Encounter Location Date Diagnosis [facility] [address] [facility] [id number] [address] [place] [phone] September, [facility] [address] [facility] [id number] [address] [place] [id number] September, [facility] [address] [facility] [id number] [address] [place] [id number] Aug, [facility] [address] [id number] [address] [place] [id number] Aug, Dental examination Z01.20 [facility] [address] [id number] [address] [place] [id number] 15 Aug, 2019 Dental examination Z01.20 an d Caries K02.9 [facility] [address] [id number] [address] [place] [id number] Aug, [facility] [address] [id number] [address] [place] [phone] Aug, [facility] [address] [id number] [address] [place] [phone] Aug, Other chronic pain G89.29 an d Back muscle spasm M62.830 [facility] [address] [id number] [address] [place] [address] Aug, [facility] [address] [id number] [address] [place] [phone] Aug, Major depressive disorder in partial remission F32.4 ; FRANCIS (generalized anxiety disorder) F41.1 ; Restless leg syndrome G25.81 and Nonadherence to medication Z91.14 [facility] [address] [id number] [address] [place] [id number] Aug, [facility] [address] [id number] [address] [place] [id number] 31 Jul, 2019 [facility] [address] [id number] [address] [place] [phone] Jul, [facility] [address] [id number] [address] [place] [id number] Jul, Major depressive disorder in partial remission F32.4 ; FRANCIS (generalized anxiety disorder) F41.1 ; Restless leg syndrome G25.81 and High blood pressure I10 [facility] [address] [id number] [address] [place] [phone] 17 Jul, 2019 [facility] [address] [id number] [address] [place] [phone] Jul, [facility] [address] [id number] [address] [place] [phone] Jun, [facility] [address] [id number] [address] [place] [phone] May, [facility] [address] [facility] [id number] [address] [place] [id number] Apr, [facility] [address] [id number] [address] [place] [phone] Apr, [facility] [address] [id number] [address] [place] [phone] Mar, [facility] [address] [facility] [id number] [address] [place] [id number] Mar, Major depressive disorder in partial remission F32.4 ; FRANCIS (generalized anxiety disorder) F41.1 and Restless leg syndrome G25.81 [facility] [address] [facility] [id number] [address] [place] [phone] Mar, Obesity (BMI 30.0-34.9) E66. 9 [facility] [address] [facility] [id number] [address] [place] [phone] Jan, [facility] [address] [facility] [id number] [address] [place] [phone] Jan, Burn T30.0 [facility] [address] [id number] [address] [place] [phone] Dec, [facility] [address] [facility] [id number] [address] [place] [id number] Nov, [facility] [address] [facility] [id number] [address] [place] [address] Nov, [facility] [address] [id number] [address] [place] [id number] Nov, Dental examination Z01.20 [facility] [address] [facility] [id number] [address] [place] [phone] September, [facility] [address] [facility] [id number] [address] [place] [id number] September, Decay, teeth K02.9 and Denta l examination Z01.20 [facility] [address] [facility] [id number] [address] [place] [address] [id number] September, Dental examination Z01.20 [facility] [address] [place] [id number] [address] [place] [address] September, FRANCIS (generalized anxiety dis order) F41.1 ; Major depressive disorder in partial remission F32.4 and Restless leg syndrome G25.81 [place] [address] [address] Aug, [place] [address] [address] Jul, [place] [address] [address] Jul, Encounter to discuss test re sults Z71.2 [place] [address] [address] Jul, Pelvic pain R10.2 ; Screenin g for breast cancer Z12.31 and Obesity (BMI 30.0-34.9) E66.9 [place] [id number] [place] [address] Jul, Mild intermittent asthma wit hout complication J45.20 [facility] [address] [place] [id number] [address] [place] [id number] Jul, Major depressive disorder in partial remission F32.4 and FRANCIS (generalized anxiety disorder) F41.1 [place] [address] [place] [id number] [address] [place] [id number] Jul, [place] [address] [place] [id number] [address] [place] [phone] Jun, [place] [address] [id number] [address] [place] [id number] May, Major depressive disorder in partial remission F32.4 ; FRANCIS (generalized anxiety disorder) F41.1 and Restless leg syndrome G25.81 [facility] [address] [id number] [address] [place] [phone] Apr, [facility] [address] [id number] [address] [place] [phone] Mar, [facility] [address] [id number] [address] [place] [phone] Jan, Pain in thoracic spine M54.6 and Other chronic pain G89.29 [facility] [address] [id number] [address] [place] [address] Jan, [facility] [address] [id number] [address] [place] [id number] 11 Jan, 2018 Mild episode of recurrent ma saray depressive disorder F33.0 ; FRANCIS (generalized anxiety disorder) F41.1 and Restless leg syndrome G25.81 [facility] [address] [id number] [address] [place] [phone] Dec, [facility] [address] [id number] [address] [place] [id number] Dec, Hospital discharge follow-up Z09 [facility] [address] [id number] [address] [place] [phone] Nov, [facility] [address] [id number] [address] [place] [phone] Nov, [facility] [address] [id number] [address] [place] [phone] September, [facility] [address] [id number] [address] [place] [address] September, [facility] [address] [id number] [address] [place] [id number] 08 May, 2018 Major depressive disorder in partial remission F32.4 ; FRANCIS (generalized anxiety disorder) F41.1 and Restless leg syndrome G25.81 [facility] [address] [id number] [address] [place] [id number] September, [facility] [address] [id number] [address] [place] [id number] Jul, [facility] [address] [id number] [address] [place] [address] Jul, Dorsalgia, unspecified M54.9 [facility] [address] [id number] [address] [place] [id number] Jul, Mild episode of recurrent ma saray depressive disorder F33.0 and FRANCIS (generalized anxiety disorder) F41.1 [facility] [address] [id number] [address] [place] [phone] May, [facility] [address] [id number] [address] [place] [address] May, Dysuria R30.0 and Acute cyst itis with hematuria N30.01 [facility] [address] [id number] [address] [place] [address] Apr, [facility] [address] [facility] [id number] [address] [place] [phone] Apr, Major depressive disorder in partial remission F32.4 and FRANCIS (generalized anxiety disorder) F41.1 [facility] [address] [id number] [address] [place] [id number] Mar, Paroxysmal tachycardia I47.9 [facility] [address] [id number] [address] [place] [address] Mar, Paroxysmal tachycardia I47.9 and Pain of left lower extremity M79.605 [facility] [address] [facility] [id number] [address] [place] [phone] Mar, FRANCIS (generalized anxiety dis order) F41.1 and Major depressive disorder in partial remission F32.4 [place] [address] [id number] [address] [place] [phone] 25 Jan, 2017 [facility] [address] [id number] [address] [place] [id number] 14 Jan, 2017 [facility] [address] [id number] [address] [place] [id number] 13 Jan, 2017 [facility] [address] [id number] [address] [place] [id number] Dec, Constipation, unspecified co nstipation type K59.00 [facility] [address] [id number] [address] [place] [id number] Dec, [facility] [address] [facility] [id number] [address] [place] [address] Nov, [facility] [address] [facility] [id number] [address] [place] [phone] Nov, Major depressive disorder in partial remission F32.4 and FRANCIS (generalized anxiety disorder) F41.1 [facility] [address] [facility] [id number] [address] [place] [id number] Oct, Abdominal pain R10.9 and Slo w transit constipation K59.01 [facility] [address] [facility] [id number] [address] [place] [id number] Aug, Major depressive disorder in partial remission F32.4 ; FRANCIS (generalized anxiety disorder) F41.1 ; Conversion disorder (or hysterical neurosis, conversion type) F44.9 ; Dorsalgia, unspecified M54.9 and Long-term use of high-risk medication Z79.899 [facility] [address] [facility] [id number] [address] [place] [address] Aug, [facility] [address] [facility] [id number] [address] [place] [id number] 15 Jul, 2016 Paroxysmal tachycardia I47.9 [facility] [address] [facility] [id number] [address] [place] [id number] Jul, Paroxysmal tachycardia I47.9 [facility] [address] [id number] [address] [place] [id number] Jun, [facility] [address] [facility] [id number] [address] [place] [phone] Jun, Major depressive disorder in partial remission F32.4 ; FRANCIS (generalized anxiety disorder) F41.1 and Conversion disorder (or hysterical neurosis, conversion type) F44.9 [facility] [address] [id number] [address] [place] [id number] May, Pelvic pain R10.2 [facility] [address] [id number] [address] [place] [id number] Apr, Gastroenteritis K52.9 [facility] [address] [facility] [id number] [address] [place] [id number] Apr, Blood in urine R31.9 and Acu te cystitis with hematuria N30.01 [facility] [address] [id number] [address] [place] [phone] Apr, Major depressive disorder in partial remission F32.4 ; FRANCIS (generalized anxiety disorder) F41.1 and Conversion disorder (or hysterical neurosis, conversion type) F44.9 [facility] [address] [facility] [id number] [address] [place] [phone] Apr, [place] [address] [facility] [id number] [address] [place] [phone] Apr, Abnormal mammogram R92.8 [facility] [address] [id number] [address] [place] [id number] Mar, [facility] [address] [facility] [id number] [address] [place] [address] Mar, Gastroenteritis K52.9 and Se izure disorder G40.909 [facility] [address] [facility] [id number] [address] [place] [phone] Dec, [facility] [address] [id number] [address] [place] [phone] Dec, Other headache syndrome G44. 89 [facility] [address] [id number] [address] [place] [address] Dec, [facility] [address] [id number] [address] [place] [address] Dec, Thoracic disc herniation M51 .24 [facility] [address] [id number] [address] [place] [id number] Dec, [facility] [address] [id number] [address] [place] [id number] Nov, Major depressive disorder in partial remission F32.4 and FRANCIS (generalized anxiety disorder) F41.1 [facility] [address] [id number] [address] [place] [phone] Nov, [facility] [address] [id number] [address] [place] [address] Nov, Dorsalgia, unspecified M54.9 [facility] [address] [id number] [address] [place] [address] Oct, [facility] [address] [id number] [address] [place] [phone] September, [facility] [address] [id number] [address] [place] [phone] Aug, [facility] [address] [id number] [address] [place] [id number] Aug, Major depressive disorder in partial remission F32.4 and FRANCIS (generalized anxiety disorder) F41.1 [facility] [address] [id number] [address] [place] [address] Aug, [facility] [address] [id number] [address] [place] [phone] Jul, Abnormal mammogram R92.8 [facility] [address] [id number] [address] [place] [address] Jul, [facility] [address] [id number] [address] [place] [id number] Jul, [facility] [address] [id number] [address] [place] [phone] Jul, [facility] [address] [id number] [address] [place] [id number] Jul, [facility] [address] [id number] [address] [place] [id number] Jul, [facility] [address] [id number] [address] [place] [address] Jul, [facility] [address] [facility] [id number] [address] [place] [id number] Jun, Major depressive disorder in partial remission F32.4 and FRANCIS (generalized anxiety disorder) F41.1 [facility] [address] [id number] [address] [place] [id number] Jun, [facility] [address] [id number] [address] [place] [phone] May, [facility] [address] [id number] [address] [place] [id number] Apr, [facility] [address] [facility] [id number] [address] [place] [address] Mar, Major depressive disorder, r ecurrent episode, moderate F33.1 ; PTSD (post-traumatic stress disorder) F43.10 and FRANCIS (generalized anxiety disorder) F41.1 [facility] [address] [id number] [address] [place] [id number] Mar, [facility] [address] [id number] [address] [place] [phone] Mar, [facility] [address] [facility] [id number] [address] [place] [address] Mar, [facility] [address] [facility] [id number] [address] [place] [phone] 07 Mar, 2015 [facility] [address] [id number] [address] [place] [id number] 23 Jan, 2015 [facility] [address] [id number] [address] [place] [id number] 15 Jan, 2015 [facility] [address] [id number] [address] [place] [id number] 15 Jan, 2015 [facility] [place] [address] [id number] [address] [place] [id number] 14 Jan, 2015 Thoracic disc herniation 722 .11 [facility] [address] [id number] [address] [place] [address] Dec, [facility] [address] [id number] [address] [place] [address] Dec, [facility] [address] [id number] [address] [place] [address] Dec, [facility] [address] [id number] [address] [place] [phone] 16 Nov, 2014 [facility] [address] [id number] [address] [place] [address] Nov, Generalized anxiety disorder 300.02 ; Posttraumatic stress disorder 309.81 and Major depressive disorder, recurrent episode, moderate 296.32 [facility] [address] [id number] [address] [place] [address] Nov, [facility] [address] [id number] [address] [place] [address] Nov, [facility] [address] [id number] [address] [place] [id number] Oct, [facility] [place] [address] [id number] [address] [place] [address] Oct, [facility] [address] [id number] [address] [place] [phone] Oct, [facility] [address] [id number] [address] [place] [address], [place] [address] September, [facility] [address] [id number] [address] [place] [address], [place] [address] September, [facility] [address] [id number] [address] [place] [address], [place] [address] Aug, [facility] [address] [id number] [address] [place] [address], [place] [address] Aug, [facility] [address] [id number] [address] [place] [address], [place] [address] Jul, [facility] [address] [id number] [address] [place] [address], [place] [address] Jul, [facility] [address] [id number] [address] [place] [address], [place] [address] Jul, [facility] [address] [id number] [address] [place] [address], [place] [address] Jul, [facility] [address] [id number] [address] [place] [address], [place] [address] Jul, [facility] [address] [id number] [address] [place] [address], [place] [address] Jul, [facility] [address] [id number] [address] [place] [address], [place] [address] Jul, [facility] [address] [id number] [address] [place] [address], [place] [address] Jul, [facility] [address] [id number] [address] [place] [address], [place] [address] Jul, [facility] [address] [id number] [address] [place] [address], [place] [address] Jul, [facility] [address] [id number] [address] [place] [address], [place] [address] Jun, [facility] [address] [id number] [address] [place] [address] [place] [address] Jun, [facility] [address] [id number] [address] [place] [address], [place] [address] Jun, [facility] [address] [id number] [address] [place] [address], [place] [address] May, [facility] [address] [id number] [address] [place] [address], [place] [address] Apr, [facility] [address] [id number] [address] [place] [address], [place] [address] Apr, [facility] [address] [id number] [address] [place] [address], [place] [address] Apr, [facility] [address] [id number] [address] [place] [address], [place] [address] Apr, [facility] [address] [id number] [address] [place] [address], [place] [address] Apr, [facility] [address] [id number] [address] [place] [address], [place] [address] Apr, [facility] [address] [id number] [address] [place] [address], [place] [address] Apr, [facility] [address] [id number] [address] [place] [address], [place] [address] Apr, [facility] [address] [id number] [address] [place] [address], [place] [address] Mar, [facility] [address] [id number] [address] [place] [id number] Mar, [facility] [address] [id number] [address] [place] [address], [place] [address] Mar, [facility] [address] [address] [id number] [address] [place] [address], [place] [address] Mar, [facility] [address] [id number] [address] [place] [address], [place] [address] Mar, [facility] [address] [id number] [address] [place] [address], [place] [address] 24 Mar, 2014 [facility] [address] [id number] [address] [place] [address], [place] [address] 24 Mar, 2014 [facility] [address] [id number] [address] [place] [address], [place] [address] Mar, [facility] [address] [id number] [address] [place] [address], [place] [address] Mar, [facility] [address] [id number] [address] [place] [address], [place] [address] Mar, [facility] [address] [id number] [address] [place] [address], [place] [address] 17 Mar, 2014 [facility] [address] [id number] [address] [place] [address], [place] [address] 14 Mar, 2014 [facility] [address] [id number] [address] [place] [address], [place] [address] 14 Mar, 2014 [facility] [address] [id number] [address] [place] [address], [place] [address] Mar, [facility] [address] [id number] [address] [place] [address], [place] [address] 07 Mar, 2014 [facility] [address] [id number] [address] [place] [address], [place] [address] Mar, [facility] [address] [id number] [address] [place] [address], [place] [address] Mar, [facility] [address] [id number] [address] [place] [address], [place] [address] 19 Jan, 2014 [facility] [address] [id number] [address] [place] [address], [place] [address] 19 Jan, 2013 [facility] [address] [id number] [address] [place] [address], [place] [address] 09 Jan, 2013 [facility] [address] [id number] [address] [place] [address], [place] [address] 09 Sep, 2013 [facility] [address] [id number] [address] [place] [address], [place] [address] 05 Sep, 2013 [facility] [address] [id number] [address] [place] [address], [place] [address] 05 Sep, 2013 [facility] [address] [id number] [address] [place] [address], [place] [address] 05 Sep, 2013 [facility] [address] [id number] [address] [place] [address], [place] [address] 05 Sep, 2013 [facility] [address] [id number] [address] [place] [address], [place] [address] 03 Jan, 2013 [facility] [address] [id number] [address] [place] [address], [place] [address] Jan, 2013 [facility] [address] [id number] [address] [place] [address], [place] [address] Jan, 2013 [facility] [address] [id number] [address] [place] [address], [place] [address] Jan, 2013 [facility] [address] [id number] [address] [place] [address], [place] [address] Jan, 2013 [facility] [address] [id number] [address] [place] [address], [place] [address] Dec, [facility] [address] [id number] [address] [place] [address], [place] [address] Dec, [facility] [address] [id number] [address] [place] [address] Dec, [facility] [address] [id number] [address] [place] [address], [place] [address] Dec, [facility] [address] [id number] [address] [place] [address], [place] [address] Dec, [facility] [address] [id number] [address] [place] [address], [place] [address] Dec, [facility] [address] [place] [id number] Dec, Via [facility] [address] [facility] [place] [id number] Dec, [facility] [address] [id number] [address] [place] [address], [place] [address] Dec, [facility] [address] [id number] [address] [place] [address], [place] [address] Dec, [facility] [address] [id number] [address] [place] [address], [place] [address] Dec, [facility] [address] [id number] [address] [place] [address], [place] [address] Dec, [facility] [address] [id number] [address] [place] [address], [place] [address] Nov, [facility] [address] [id number] [address] [place] [address], [place] [address] Nov, [facility] [address] [id number] [address] [place] [address], [place] [address] Nov, [facility] [address] [id number] [address] [place] [address], [place] [address] Nov, [facility] [address] [id number] [address] [place] [address], [place] [address] Nov, [facility] [address] [id number] [address] [place] [address], [place] [address] Nov, [facility] [address] [id number] [address] [place] [address], [place] [address] Nov, [facility] [address] [id number] [address] [place] [address], [place] [address] Nov, [facility] [address] [id number] [address] [place] [address], [place] [address] Nov, [facility] [address] [id number] [address] [place] [address], [place] [address] Nov, [facility] [address] [id number] [address] [place] [address], [place] [address] Nov, [facility] [address] [id number] [facility] [address] Nov, [facility] [address] [id number] [facility] [address] Nov, [facility] [address] [id number] [facility] [address] Oct, [facility] [address] [id number] [address] [place] [address], [place] [address] Oct, [facility] [address] [id number] [address] [place] [address], [place] [address] Oct, [facility] [address] [id number] [address] [place] [address], [place] [address] Oct, [facility] [address] [id number] [address] [place] [address], [place] [address] Oct, [facility] [address] [id number] [address] [place] [address], [place] [address] Oct, [facility] [address] [id number] [address] [place] [address], [place] [address] Oct, [facility] [address] [id number] [address] [place] [address], [place] [address] Oct, [facility] [address] [id number] [address] [place] [address], [place] [address] Oct, [facility] [address] [id number] [address] [place] [address], [place] [address] Oct, [facility] [address] [id number] [address] [place] [address], [place] [address] Oct, [facility] [address] [id number] [address] [place] [address], [place] [address] Oct, [facility] [address] [id number] [address] [place] [address], [place] [address] September, [facility] [address] [id number] [facility] [address] September, [facility] [address] [id number] [facility] [address] September, [facility] [address] [id number] [facility] [address] September, [facility] [address] [id number] [address] [place] [address], [place] [address] Aug, [facility] [address] [id number] [address] [place] [address], [place] [address] Aug, [facility] [address] [id number] [address] [place] [address], [place] [address] Aug, [facility] [address] [id number] [address] [place] [address], [place] [address] Aug, [facility] [address] [id number] [address] [place] [address], [place] [address] Aug, [facility] [address] [id number] [address] [place] [address], [place] [address] Aug, [facility] [address] [id number] [address] [place] [address], [place] [address] Aug, [facility] [address] [id number] [address] [place] [address], [place] [address] Jul, [facility] [address] [id number] [address] [place] [address], [place] [address] Jul, [facility] [address] [id number] [address] [place] [address], [place] [address] Jul, [facility] [address] [id number] [address] [place] [address], [place] [address] Jul, [facility] [address] [id number] [address] [place] [address], [place] [address] 19 Jul, 2013 [facility] [address] [id number] [address] [place] [address], [place] [address] Jul, [facility] [address] [id number] [address] [place] [address], [place] [address] Jul, [facility] [address] [id number] [address] [place] [address], [place] [address] 18 Jul, 2013 [facility] [address] [id number] [address] [place] [address], [place] [address] 18 Jul, 2013 [facility] [address] [id number] [address] [place] [address], [place] [address] 18 Jul, 2013 [facility] [address] [id number] [address] [place] [address], [place] [address] Jul, [facility] [address] [id number] [address] [place] [address], [place] [address] 18 Jul, 2013 [facility] [address] [id number] [address] [place] [address], [place] [address] 14 Jul, 2013 [facility] [address] [id number] [address] [place] [address], [place] [address] 14 Jul, 2013 [facility] [address] [id number] [address] [place] [address], [place] [address] Jul, [facility] [address] [id number] [address] [place] [address], [place] [address] Jul, [facility] [address] [id number] [address] [place] [address], [place] [address] Jul, [facility] [address] [id number] [address] [place] [address], [place] [address] Jul, [facility] [address] [id number] [address] [place] [address], [place] [address] Jun, [facility] [address] [id number] [address] [place] [address], [place] [address] Jun, [facility] [address] [id number] [address] [place] [address], [place] [address] Jun, [facility] [address] [id number] [address] [place] [address], [place] [address] 15 Jun, 2013 [facility] [address] [id number] [address] [place] [address], [place] [address] 14 Jun, 2013 [facility] [address] [id number] [address] [place] [address], [place] [address] 14 Jun, 2013 [facility] [address] [id number] [address] [place] [address], [place] [address] 14 Jun, 2013 [facility] [address] [id number] [address] [place] [address], [place] [address] 14 Jun, 2013 [facility] [address] [id number] [address] [place] [address], [place] [address] 14 Jun, 2013 [facility] [address] [id number] [address] [place] [address], [place] [address] 14 Jun, 2013 [facility] [address] [id number] [address] [place] [address], [place] [address] 27 May, 2013 [facility] [address] [id number] [address] [place] [address], [place] [address] 27 May, 2013 [facility] [address] [id number] [address] [place] [address], [place] [address] 26 May, 2013 [facility] [address] [id number] [address] [place] [address], [place] [address] 19 May, 2013 [facility] [address] [id number] [address] [place] [address], [place] [address] 19 May, 2013 [facility] [address] [id number] [address] [place] [address], [place] [address] 16 May, 2013 [facility] [address] [id number] [address] [place] [address], [place] [address] 16 May, 2013 [facility] [address] [id number] [address] [place] [address], [place] [address] 16 May, 2013 [facility] [address] [id number] [address] [address] 16 May, 2013 [facility] [address] [id number] [address] [place] [address], [place] [address] 13 May, 2013 [facility] [address] [id number] [address] [place] [address] 13 May, 2013 [facility] [address] [id number] [address] [place] [address] 11 May, 2013 [facility] [address] [id number] [address] [place] [address] 20 Apr, 2013 [facility] [address] [id number] [address] [place] [address], [place] [address] 18 Apr, 2013 [facility] [address] [id number] [address] [place] [address] 18 Apr, 2013 [facility] [address] [id number] [address] [place] [address] Apr, [facility] [address] [id number] [address] [place] [address] Apr, [facility] [address] [id number] [address] [place] [address] 08 Apr, 2013 [facility] [address] [id number] [address] [place] [address] 08 Apr, 2013 [facility] [address] [id number] [address] [place] [address] 07 Apr, 2013 [facility] [address] [id number] [address] [place] [address] 07 Apr, 2013 [facility] [address] [id number] [address] [place] [address] Apr, [facility] [address] [id number] [address] [place] [address] 07 Apr, 2013 [facility] [address] [id number] [address] [place] [address] Mar, [facility] [address] [id number] [address] [place] [address], [place] [address] Mar, [facility] [address] [id number] [address] [place] [address], [place] [address] Mar, [facility] [address] [id number] [address] [place] [address], [place] [address] Mar, [facility] [address] [id number] [address] [place] [address], [place] [address] Mar, [facility] [address] [id number] [address] [place] [address], [place] [address] Mar, [facility] [address] [id number] [address] [place] [address], [place] [address] Mar, [facility] [address] [id number] [address] [place] [address], [place] [address] Mar, [facility] [address] [id number] [address] [place] [address], [place] [address] Mar, [facility] [address] [id number] [address] [place] [address], [place] [address] 15 Mar, 2013 [facility] [address] [id number] [address] [place] [address], [place] [address] 15 Mar, 2013 [facility] [address] [id number] [address] [place] [address], [place] [address] Mar, [facility] [address] [id number] [address] [place] [address], [place] [address] 30 Jan, 2013 [facility] [address] [id number] [address] [place] [address], [place] [address] 25 Jan, 2013 [facility] [address] [id number] [address] [place] [address], [place] [address] 20 Jan, 2013 [facility] [address] [id number] [address] [place] [address], [place] [address] 10 Jan, 2013 [facility] [address] [id number] [address] [place] [address], [place] [address] Dec, [facility] [address] [id number] [address] [place] [address], [place] [address] Dec, [facility] [address] [id number] [address] [place] [address], [place] [address] Dec, [facility] [address] [id number] [address] [place] [address], [place] [address] Dec, [facility] [address] [id number] [address] [place] [address], [place] [address] Dec, [facility] [address] [id number] [address] [place] [address], [place] [address] Dec, [facility] [address] [id number] [address] [place] [address], [place] [address] Dec, [facility] [address] [id number] [address] [place] [address], [place] [address] Dec, [facility] [address] [id number] [address] [place] [address], [place] [address] Dec, [facility] [address] [id number] [address] [place] [address], [place] [address] Nov, [facility] [address] [id number] [address] [place] [address], [place] [address] Nov, [facility] [address] [id number] [address] [place] [address], [place] [address] Nov, [facility] [address] [id number] [address] [place] [address], [place] [address] Nov, [facility] [address] [id number] [address] [place] [address], [place] [address] Nov, [facility] [address] [id number] [address] [place] [address], [place] [address] Nov, [facility] [address] [id number] [address] [place] [address], [place] [address] Nov, [facility] [address] [id number] [address] [place] [address], [place] [address] Nov, [facility] [address] [id number] [address] [place] [address], [place] [address] Oct, [facility] [address] [id number] [address] [place] [address], [place] [address] Oct, [facility] [address] [id number] [address] [place] [address], [place] [address] Oct, [facility] [address] [id number] [address] [place] [address], [place] [address] Oct, [facility] [address] [id number] [address] [place] [address], [place] [address] Oct, [facility] [address] [id number] [address] [place] [address], [place] [address] Oct, [facility] [address] [id number] [address] [place] [address], [place] [address] Oct, [facility] [address] [id number] [address] [place] [address], [place] [address] Oct, [facility] [address] [id number] [address] [place] [address], [place] [address] Oct, [facility] [address] [id number] [address] [place] [address], [place] [address] 18 Oct, 2012 [facility] [address] [id number] [address] [place] [address], [place] [address] 17 Oct, 2012 [facility] [address] [id number] [address] [place] [address], [place] [address] 14 Oct, 2012 [facility] [address] [id number] [address] [place] [address], [place] [address] 07 Oct, 2012 [facility] [address] [id number] [address] [place] [address], [place] [address] September, [facility] [address] [id number] [address] [place] [address], [place] [address] September, [facility] [address] [id number] [address] [place] [address], [place] [address] September, [facility] [address] [id number] [address] [place] [address], [place] [address] Aug, [facility] [address] [id number] [address] [place] [address], [place] [address] Aug, [facility] [address] [id number] [address] [place] [address], [place] [address] Aug, [facility] [address] [id number] [address] [place] [address], [place] [address] Aug, [facility] [address] [id number] [address] [place] [address], [place] [address] Aug, [facility] [address] [id number] [address] [place] [address], [place] [address] Aug, [facility] [address] [id number] [address] [place] [address], [place] [address] Aug, [facility] [address] [id number] [address] [place] [address], [place] [address] Jul, [facility] [address] [id number] [address] [place] [address], [place] [address] Jul, [facility] [address] [id number] [address] [place] [address], [place] [address] Jul, [facility] [address] [id number] [address] [place] [address], [place] [address] Jul, [facility] [address] [id number] [address] [place] [address], [place] [address] Jul, [facility] [address] [id number] [address] [place] [address], [place] [address] Jul, [facility] [address] [id number] [address] [place] [address], [place] [address] Jul, [facility] [address] [id number] [address] [place] [address], [place] [address] Jul, [facility] [address] [id number] [address] [place] [address], [place] [address] Jul, [facility] [address] [id number] [address] [place] [address], [place] [address] Jul, [facility] [address] [id number] [address] [place] [address], [place] [address] Jul, [facility] [address] [id number] [address] [place] [address], [place] [address] Jul, [facility] [address] [id number] [address] [place] [address], [place] [address] Jul, [facility] [address] [id number] [address] [place] [address], [place] [address] Jun, [facility] [address] [id number] [address] [place] [address], [place] [address] Jun, [facility] [address] [id number] [address] [place] [address], [place] [address] Jun, [facility] [address] [id number] [address] [place] [address], [place] [address] Jun, [facility] [address] [id number] [address] [place] [address], [place] [address] 15 Jun, 2012 [facility] [address] [id number] [address] [place] [address], [place] [address] Jun, [facility] [address] [id number] [address] [place] [address], [place] [address] Jun, [facility] [address] [id number] [address] [place] [address], [place] [address] May, [facility] [address] [id number] [address] [place] [address], [place] [address] May, [facility] [facility] [address] [id number] [address] [place] [address], [place] [address] May, [facility] [address] [id number] [address] [place] [address], [place] [address] May, [facility] [address] [id number] [address] [place] [address], [place] [address] May, [facility] [address] [id number] [address] [place] [address], [place] [address] May, [facility] [address] [id number] [address] [place] [address], [place] [address] May, [facility] [address] [id number] [address] [place] [address], [place] [address] May, [facility] [address] [id number] [address] [place] [address], [place] [address] May, [facility] [address] [id number] [address] [place] [address], [place] [address] May, [facility] [address] [id number] [address] [place] [address], [place] [address] Apr, [facility] [address] [id number] [address] [place] [address], [place] [address] Apr, [facility] [address] [id number] [address] [place] [address], [place] [address] Apr, [facility] [address] [id number] [address] [place] [address], [place] [address] Apr, [facility] [address] [id number] [address] [place] [address], [place] [address] Apr, [facility] [address] [id number] [address] [place] [address], [place] [address] Apr, [facility] [address] [id number] [address] [place] [address], [place] [address] Apr, [facility] [address] [id number] [address] [place] [address], [place] [address] Apr, [facility] [address] [id number] [address] [place] [address], [place] [address] Apr, [facility] [address] [id number] [address] [place] [address], [place] [address] Apr, [facility] [address] [id number] [address] [place] [address], [place] [address] Apr, [facility] [address] [id number] [address] [place] [address], [place] [address] Apr, [facility] [address] [id number] [address] [place] [address], [place] [address] Mar, [facility] [address] [id number] [address] [place] [address], [place] [address] Mar, [facility] [address] [id number] [address] [place] [address], [place] [address] Mar, [facility] [address] [id number] [address] [place] [address], [place] [address] Mar, [facility] [address] [id number] [address] [place] [address] Mar, [facility] [address] [id number] [address] [place] [address] Mar, [facility] [address] [id number] [address] [place] [id number] Mar, [facility] [address] [id number] [address] [place] [id number] 30 Mar, 2012 [facility] [address] [id number] [address] [place] [address] Mar, [facility] [address] [id number] [address] [place] [address] Mar, [facility] [address] [id number] [address] [place] [phone] Mar, [facility] [address] [id number] [address] [place] [id number] Mar, [facility] [address] [id number] [address] [place] [address], [place] [address] 12 Mar, 2012 [facility] [address] [id number] [address] [place] [address], [place] [address] 12 Mar, 2012 [facility] [address] [id number] [address] [place] [address], [place] [address] 03 Mar, 2012 [facility] [address] [id number] [address] [place] [address], [place] [address] 02 Mar, 2012 [facility] [address] [id number] [address] [place] [address], [place] [address] 25 Jan, 2012 [facility] [address] [id number] [address] [place] [address], [place] [address] 24 Jan, 2012 [facility] [address] [id number] [address] [place] [address], [place] [address] 22 Jan, 2012 [facility] [address] [id number] [address] [place] [address], [place] [address] 22 Jan, 2012 [facility] [address] [id number] [address] [place] [address], [place] [address] 21 Jan, 2012 [facility] [address] [id number] [address] [place] [address], [place] [address] 18 Jan, 2012 [facility] [address] [id number] [address] [place] [address], [place] [address] 14 Jan, 2012 [facility] [address] [id number] [address] [place] [address], [place] [address] 07 Jan, 2012 [facility] [address] [id number] [address] [place] [address], [place] [address] 15 Dec, 2011 [facility] [address] [id number] [address] [place] [address], [place] [address] 10 Dec, 2011 [facility] [address] [id number] [address] [place] [address], [place] [address] 09 Dec, 2011 [facility] [address] [id number] [address] [place] [address], [place] [address] 08 Dec, 2011 [facility] [address] [id number] [facility] [address] Dec, [facility] [address] [id number] [address] [place] [address], [place] [address] Dec, [facility] [address] [id number] [address] [place] [address], [place] [address] Dec, [facility] [address] [id number] [address] [place] [address], [place] [address] Nov, [facility] [address] [id number] [address] [place] [address], [place] [address] Oct, [facility] [address] [id number] [address] [place] [address], [place] [address] Aug, [facility] [address] [id number] [address] [place] [address], [place] [address] Jul, [facility] [address] [id number] [address] [place] [address], [place] [address] Jul, [facility] [address] [id number] [address] [place] [address], [place] [address] 16 Jul, 2011 [facility] [address] [id number] [address] [place] [address], [place] [address] 14 Jul, 2011 [facility] [address] [id number] [address] [place] [address], [place] [address] Jul, [facility] [address] [id number] [address] [place] [address], [place] [address] Jul, [facility] [address] [id number] [address] [place] [address], [place] [address] Jul, [facility] [address] [id number] [address] [place] [address], [place] [address] 15 Jul, 2011 [facility] [address] [id number] [address] [place] [address], [place] [address] 13 Jul, 2011 [facility] [address] [id number] [address] [place] [address], [place] [address] Jul, [facility] [address] [id number] [address] [place] [address], [place] [address] Jul, [facility] [address] [id number] [address] [place] [address], [place] [address] Jun, [facility] [address] [id number] [address] [place] [address], [place] [address] Jun, [facility] [address] [id number] [address] [place] [address], [place] [address] Jun, [facility] [address] [id number] [address] [place] [address], [place] [address] Jun, [facility] [address] [id number] [address] [place] [address], [place] [address] Jun, [facility] [address] [id number] [address] [place] [address], [place] [address] Jun, [facility] [address] [id number] [address] [place] [address], [place] [address] Jun, [facility] [address] [id number] [address] [place] [address], [place] [address] May, [facility] [address] [id number] [address] [place] [address], [place] [address] May, [facility] [address] [id number] [address] [place] [address], [place] [address] May, [facility] [address] [id number] [address] [place] [address], [place] [address] May, [facility] [address] [id number] [address] [place] [address], [place] [address] May, [facility] [address] [id number] [address] [place] [address], [place] [address] May, [facility] [address] [id number] [address] [place] [address], [place] [address] May, [facility] [address] [id number] [address] [place] [address] May, [facility] [address] [id number] [address] [place] [address] May, [facility] [address] [id number] [address] [place] [address] May, [facility] [address] [id number] [address] [place] [address] Apr, [facility] [address] [id number] [address] [place] [address] Apr, [facility] [address] [id number] [address] [place] [address] Apr, [facility] [address] [id number] [address] [place] [address] Apr, [facility] [address] [id number] [address] [place] [address] Mar, [facility] [address] [id number] [address] [place] [address] Mar, [facility] [address] [id number] [address] [place] [address] Mar, [facility] [address] [id number] [address] [place] [id number] Mar, IMMUNIZATIONS No Known Immunizations SOCIAL HISTORY Never Assessed REASON FOR VISIT PLAN OF CARE VITAL SIGNS Height 61 in 2013-05-19 Weight 172.7 lbs 2013-05-19 Temperature 98.6 degrees Fahrenheit 2013-05-19 Heart Rate 104 bpm 2013-05-19 Respiratory Rate 22 2013-05-19 Blood pressure systolic 138 mmHg 2013-05-19 Blood pressure diastolic 92 mmHg 2013-05-19 MEDICATIONS Unknown Medications RESULTS No Results PROCEDURES Procedure Date Ordered Result Body Site COMPUTER DX MAMMOGRAM ADD-ON May 19, 2013 SCR PAP SMER;NEW PT OBTAIN PREP&CONVY-LAB May 19, 2013 CYTOPATH C/V AUTO FLUID REDO May 19, 2013 US EXAM, BREAST(S) May 19, 2013 INSTRUCTIONS MEDICATIONS ADMINISTERED No Known Medications [...]
--- OUTSIDE RECORDS SUMMARY | 2020-01-03 18:03 | XMS REPORT ---
Author Author Pattie Moffett Doctor Organization [facility] Address Unknown Phone Unavailable Care Team Providers Care Tosser Name Role Phone Migration, Doctor Unavailable Unavailable PROBLEMS Type Condition ICD9-CM Code [id number] Code Onset Dates Condition S tatus SNOMED Code Problem Major depressive disorder in partial remission F32 .4 Active 69811834 Problem FRANCIS (generalized anxiety disorder) F41.1 Active 08546694 Problem Conversion disorder (or hysterical neurosis, conversion ty pe) F44.9 Active 46603919 Problem Thoracic disc herniation M51.24 Activ e 632951854 Problem Slow transit constipation K59.01 Acti ve 94071088 Problem Constipation, unspecified constipation type K59.00 Active 75248149 Problem Mild episode of recurrent major depressive disorder F33.0 Active 738498786 Problem High blood pressure I10 Active 30981947 Problem Paroxysmal tachycardia I47.9 Active 57622681 Problem Nonadherence to medication Z91.14 Act vivian 252002617 Problem Seizure disorder G40.909 Active 128 673319 Problem Restless leg syndrome G25.81 Active 84195402 Problem Other chronic pain G89.29 Active 8 4385688 Problem Mild intermittent asthma without complication J45. 20 Active 271113417 Problem Obesity (BMI 30.0-34.9) E66.9 Active [id number] ALLERGIES No Information ENCOUNTERS Encounter Location Date Diagnosis [facility] [address] [id number] [address] [place] [phone] September, [facility] [address] [id number] [address] [place] [phone] September, [facility] [address] [id number] [address] [place] [phone] September, [facility] [address] [id number] [address] [place] [phone] Aug, [facility] [address] [id number] [address] [place] [id number] Aug, Dental examination Z01.20 [facility] [address] [id number] [address] [place] [address] [id number] 15 Aug, 2019 Dental examination Z01.20 an d Caries K02.9 [facility] [address] [id number] [address] [place] [phone] Aug, [facility] [address] [id number] [address] [place] [phone] Aug, [facility] [address] [id number] [address] [place] [phone] Aug, Other chronic pain G89.29 an d Back muscle spasm M62.830 [facility] [address] [id number] [address] [place] [phone] Aug, [facility] [address] [id number] [address] [place] [phone] Aug, Major depressive disorder in partial remission F32.4 ; FRANCIS (generalized anxiety disorder) F41.1 ; Restless leg syndrome G25.81 and Nonadherence to medication Z91.14 [facility] [address] [id number] [address] [place] [phone] Aug, [facility] [address] [id number] [address] [place] [phone] Jul, [facility] [address] [id number] [address] [place] [phone] Jul, [facility] [address] [id number] [address] [place] [phone] Jul, Major depressive disorder in partial remission F32.4 ; FRANCIS (generalized anxiety disorder) F41.1 ; Restless leg syndrome G25.81 and High blood pressure I10 [facility] [address] [id number] [address] [place] [phone] 17 Jul, 2019 [facility] [address] [id number] [address] [place] [phone] Jul, [facility] [address] [id number] [address] [place] [phone] Jun, [facility] [address] [id number] [address] [place] [phone] May, [facility] [address] [id number] [address] [place] [phone] Apr, [facility] [address] [id number] [address] [place] [phone] Apr, [facility] [address] [id number] [address] [place] [phone] Mar, [facility] [address] [id number] [address] [place] [id number] Mar, Major depressive disorder in partial remission F32.4 ; FRANCIS (generalized anxiety disorder) F41.1 and Restless leg syndrome G25.81 [facility] [address] [id number] [address] [place] [phone] Mar, Obesity (BMI 30.0-34.9) E66. 9 [facility] [address] [id number] [address] [place] [phone] Jan, [facility] [address] [id number] [address] [place] [phone] Jan, Burn T30.0 [facility] [address] [id number] [address] [place] [id number] Dec, [facility] [address] [id number] [address] [place] [phone] Nov, [facility] [address] [id number] [address] [place] [phone] Nov, [facility] [address] [id number] [address] [place] [address] [id number] Nov, Dental examination Z01.20 [facility] [address] [id number] [address] [place] [phone] September, [facility] [address] [facility] [id number] [address] [place] [address] [id number] September, Decay, teeth K02.9 and Denta l examination Z01.20 [facility] [address] [facility] [id number] [address] [place] [address] [id number] September, Dental examination Z01.20 [facility] [address] [place] [id number] [place] [address] September, FRANCIS (generalized anxiety dis order) F41.1 ; Major depressive disorder in partial remission F32.4 and Restless leg syndrome G25.81 [place] [address] [place] [id number] [place] [phone] Aug, [facility] [place] [address] [place] [id number] [place] [phone] Jul, [place] [address] [address] Jul, Encounter to discuss test re sults Z71.[address] [phone] Jul, Pelvic pain R10.2 ; Screenin g for breast cancer Z12.31 and Obesity (BMI 30.0-34.9) E66.9 [place] [address] [place] [id number] [address] [place] [phone] Jul, Mild intermittent asthma wit hout complication J45.20 [facility] [place] [address] [id number] [address] [place] [phone] Jul, Major depressive disorder in partial remission F32.4 and FRANCIS (generalized anxiety disorder) F41.1 [place] [address] [place] [id number] [address] [place] [phone] Jul, [place] [address] [place] [id number] [place] [phone] Jun, [place] [address] [id number] [address] [place] [phone] May, Major depressive disorder in partial remission F32.4 ; FRANCIS (generalized anxiety disorder) F41.1 and Restless leg syndrome G25.81 [facility] [address] [id number] [address] [place] [phone] Apr, [facility] [address] [id number] [address] [place] [phone] Mar, [facility] [address] [id number] [address] [place] [phone] Jan, Pain in thoracic spine M54.6 and Other chronic pain G89.29 [facility] [address] [id number] [address] [place] [phone] 14 Jan, 2018 [facility] [address] [id number] [address] [place] [phone] 11 Jan, 2018 Mild episode of recurrent ma saray depressive disorder F33.0 ; FRANCIS (generalized anxiety disorder) F41.1 and Restless leg syndrome G25.81 [facility] [address] [id number] [address] [place] [phone] Dec, [facility] [address] [id number] [address] [place] [phone] Dec, Hospital discharge follow-up Z09 [facility] [address] [id number] [address] [place] [phone] Nov, [facility] [address] [id number] [address] [place] [phone] Nov, [facility] [address] [id number] [address] [place] [phone] September, [facility] [address] [id number] [address] [place] [phone] September, [facility] [address] [id number] [address] [place] [phone] September, Major depressive disorder in partial remission F32.4 ; FRANCIS (generalized anxiety disorder) F41.1 and Restless leg syndrome G25.81 [facility] [address] [id number] [address] [place] [id number] September, [facility] [address] [id number] [address] [place] [phone] Jul, [facility] [address] [id number] [address] [place] [phone] Jul, Dorsalgia, unspecified M54.9 [facility] [address] [id number] [address] [place] [id number] Jul, Mild episode of recurrent ma saray depressive disorder F33.0 and FRANCIS (generalized anxiety disorder) F41.1 [facility] [address] [id number] [address] [place] [phone] May, [facility] [address] [id number] [address] [place] [phone] May, Dysuria R30.0 and Acute cyst itis with hematuria N30.01 [facility] [address] [id number] [address] [place] [phone] Apr, [facility] [address] [id number] [address] [place] [phone] Apr, Major depressive disorder in partial remission F32.4 and FRANCIS (generalized anxiety disorder) F41.1 [facility] [address] [id number] [address] [place] [phone] Mar, Paroxysmal tachycardia I47.9 [facility] [address] [id number] [address] [place] [phone] Mar, Paroxysmal tachycardia I47.9 and Pain of left lower extremity M79.605 [facility] [address] [id number] [address] [place] [phone] Mar, FRANCIS (generalized anxiety dis order) F41.1 and Major depressive disorder in partial remission F32.4 [facility] [address] [id number] [address] [place] [phone] 25 Jan, 2017 [facility] [address] [id number] [address] [place] [phone] 14 Jan, 2017 [facility] [address] [id number] [address] [place] [phone] 13 Jan, 2017 [facility] [address] [id number] [address] [place] [phone] Dec, Constipation, unspecified co nstipation type K59.00 [facility] [address] [id number] [address] [place] [phone] Dec, [facility] [address] [id number] [address] [place] [phone] Nov, [facility] [address] [id number] [address] [place] [phone] Nov, Major depressive disorder in partial remission F32.4 and FRANCIS (generalized anxiety disorder) F41.1 [facility] [address] [id number] [address] [place] [phone] Oct, Abdominal pain R10.9 and Slo w transit constipation K59.01 [facility] [address] [id number] [address] [place] [phone] Aug, Major depressive disorder in partial remission F32.4 ; FRANCIS (generalized anxiety disorder) F41.1 ; Conversion disorder (or hysterical neurosis, conversion type) F44.9 ; Dorsalgia, unspecified M54.9 and Long-term use of high-risk medication Z79.899 [facility] [address] [id number] [address] [place] [phone] Aug, [facility] [address] [id number] [address] [place] [phone] 15 Jul, 2016 Paroxysmal tachycardia I47.9 [facility] [address] [id number] [address] [place] [id number] Jul, Paroxysmal tachycardia I47.9 [facility] [address] [id number] [address] [place] [phone] Jun, [facility] [address] [id number] [address] [place] [phone] Jun, Major depressive disorder in partial remission F32.4 ; FRANCIS (generalized anxiety disorder) F41.1 and Conversion disorder (or hysterical neurosis, conversion type) F44.9 [facility] [address] [id number] [address] [place] [phone] May, Pelvic pain R10.2 [facility] [address] [id number] [address] [place] [phone] Apr, Gastroenteritis K52.9 [facility] [address] [id number] [address] [place] [phone] Apr, Blood in urine R31.9 and Acu te cystitis with hematuria N30.01 [facility] [address] [id number] [address] [place] [phone] Apr, Major depressive disorder in partial remission F32.4 ; FRANCIS (generalized anxiety disorder) F41.1 and Conversion disorder (or hysterical neurosis, conversion type) F44.9 [facility] [address] [id number] [address] [place] [phone] Apr, [facility] [address] [id number] [address] [place] [phone] Apr, Abnormal mammogram R92.8 [facility] [address] [id number] [address] [place] [phone] Mar, [facility] [address] [id number] [address] [place] [phone] Mar, Gastroenteritis K52.9 and Se izure disorder G40.909 [facility] [address] [id number] [address] [place] [phone] Dec, [facility] [address] [id number] [address] [place] [phone] Dec, Other headache syndrome G44. 89 [facility] [address] [id number] [address] [place] [phone] Dec, [facility] [address] [id number] [address] [place] [phone] Dec, Thoracic disc herniation M51 .24 [facility] [address] [id number] [address] [place] [phone] Dec, [facility] [address] [id number] [address] [place] [phone] Nov, Major depressive disorder in partial remission F32.4 and FRANCIS (generalized anxiety disorder) F41.1 [facility] [address] [id number] [address] [place] [phone] Nov, [facility] [address] [id number] [address] [place] [phone] Nov, Dorsalgia, unspecified M54.9 [facility] [address] [id number] [address] [place] [phone] Oct, [facility] [address] [id number] [address] [place] [phone] September, [facility] [address] [id number] [address] [place] [phone] Aug, [facility] [address] [id number] [address] [place] [phone] Aug, Major depressive disorder in partial remission F32.4 and FRANCIS (generalized anxiety disorder) F41.1 [facility] [address] [id number] [address] [place] [phone] Aug, [facility] [address] [id number] [address] [place] [phone] Jul, Abnormal mammogram R92.8 [facility] [address] [id number] [address] [place] [phone] Jul, [facility] [address] [id number] [address] [place] [phone] Jul, [facility] [address] [id number] [address] [place] [phone] Jul, [facility] [address] [id number] [address] [place] [phone] Jul, [facility] [address] [id number] [address] [place] [phone] Jul, [facility] [address] [id number] [address] [place] [phone] Jul, [facility] [address] [id number] [address] [place] [phone] Jun, Major depressive disorder in partial remission F32.4 and FRANCIS (generalized anxiety disorder) F41.1 [facility] [address] [id number] [address] [place] [phone] Jun, [facility] [address] [id number] [address] [place] [phone] May, [facility] [address] [id number] [address] [place] [phone] Apr, [facility] [address] [id number] [address] [place] [phone] Mar, Major depressive disorder, r ecurrent episode, moderate F33.1 ; PTSD (post-traumatic stress disorder) F43.10 and FRANCIS (generalized anxiety disorder) F41.1 [facility] [address] [id number] [address] [place] [phone] Mar, [facility] [address] [id number] [address] [place] [phone] Mar, [facility] [address] [id number] [address] [place] [phone] Mar, [facility] [address] [id number] [address] [place] [phone] 07 Mar, 2015 [facility] [address] [id number] [address] [place] [phone] 23 Jan, 2015 [facility] [address] [id number] [address] [place] [phone] 15 Jan, 2015 [facility] [address] [id number] [address] [place] [phone] 15 Jan, 2015 [facility] [address] [id number] [address] [place] [phone] 14 Jan, 2015 Thoracic disc herniation 722 .11 [facility] [address] [id number] [address] [place] [phone] Dec, [facility] [address] [id number] [address] [place] [phone] Dec, [facility] [address] [id number] [address] [place] [phone] Dec, [facility] [address] [id number] [address] [place] [phone] Nov, [facility] [address] [id number] [address] [place] [address] Nov, Generalized anxiety disorder 300.02 ; Posttraumatic stress disorder 309.81 and Major depressive disorder, recurrent episode, moderate 296.32 [facility] [address] [id number] [address] [place] [phone] Nov, [facility] [address] [id number] [address] [place] [phone] Nov, [facility] [address] [id number] [address] [place] [phone] Oct, [facility] [address] [id number] [address] [place] [phone] Oct, [facility] [address] [id number] [address] [place] [phone] Oct, [facility] [address] [id number] [address] [place] [address], [place] [id number] September, [facility] [address] [id number] [address] [place] [address], [place] [id number] September, [facility] [address] [id number] [address] [place] [address], [place] [address] Aug, [facility] [address] [id number] [address] [place] [address], [place] [id number] Aug, [facility] [address] [id number] [address] [place] [address], [place] [address] Jul, [facility] [address] [id number] [address] [place] [address], [place] [address] Jul, [facility] [address] [id number] [address] [place] [address], [place] [id number] Jul, [facility] [address] [id number] [address] [place] [address], [place] [id number] 17 Jul, 2014 [facility] [address] [id number] [address] [place] [address], [place] [address] Jul, [facility] [address] [id number] [address] [place] [address], [place] [id number] Jul, [facility] [address] [id number] [address] [place] [address], [place] [id number] Jul, [facility] [address] [id number] [address] [place] [address], [place] [id number] Jul, [facility] [address] [id number] [address] [place] [address], [place] [id number] Jul, [facility] [address] [id number] [address] [place] [address], [place] [id number] Jul, [facility] [address] [id number] [address] [place] [address], [place] [address] Jun, [facility] [address] [id number] [address] [place] [address], [place] [id number] Jun, [facility] [address] [id number] [address] [place] [address], [place] [id number] Jun, [facility] [address] [id number] [address] [place] [address], [place] [id number] May, [facility] [address] [id number] [address] [place] [address], [place] [address] Apr, [facility] [address] [id number] [address] [place] [address], [place] [address] Apr, [facility] [address] [id number] [address] [place] [address], [place] [id number] Apr, [facility] [address] [id number] [address] [place] [address], [place] [id number] Apr, [facility] [address] [id number] [address] [place] [address], [place] [id number] Apr, [facility] [address] [id number] [address] [place] [address], [place] [id number] Apr, [facility] [address] [id number] [address] [place] [address], [place] [id number] Apr, [facility] [address] [id number] [address] [place] [address], [place] [id number] Apr, [facility] [address] [id number] [address] [place] [address], [place] [id number] Mar, [facility] [address] [id number] [address] [place] [address], [place] [id number] Mar, [facility] [address] [id number] [address] [place] [address], [place] [id number] Mar, [facility] [address] [id number] [address] [place] [address], [place] [id number] Mar, [facility] [address] [id number] [address] [place] [address], [place] [id number] Mar, [facility] [address] [id number] [address] [place] [address], [place] [id number] 24 Mar, 2014 [facility] [address] [id number] [address] [place] [address], [place] [id number] 24 Mar, 2014 [facility] [address] [id number] [address] [place] [address], [place] [id number] Mar, [facility] [address] [id number] [address] [place] [address], [place] [id number] Mar, [facility] [address] [id number] [address] [place] [address], [place] [address] Mar, [facility] [address] [id number] [address] [place] [address], [place] [address] 17 Mar, 2014 [facility] [address] [id number] [address] [place] [address], [place] [address] Mar, [facility] [address] [id number] [address] [place] [address], [place] [address] 14 Mar, 2014 [facility] [address] [id number] [address] [place] [address], [place] [address] Mar, [facility] [address] [id number] [address] [place] [address], [place] [address] Mar, [facility] [address] [id number] [address] [place] [address], [place] [address] Mar, [facility] [address] [id number] [address] [place] [address], [place] [address] Mar, [facility] [address] [id number] [address] [place] [address], [place] [address] Jan, [facility] [address] [id number] [address] [place] [address], [place] [address] 19 Jan, 2014 [facility] [address] [id number] [address] [place] [address], [place] [address] 09 Jan, 2014 [facility] [address] [id number] [address] [address] 09 Jan, 2013 [facility] [address] [id number] [address] [place] [address], [place] [address] 05 Sep, 2013 [facility] [address] [id number] [address] [place] [address], [place] [address] 05 Jan, 2013 [facility] [address] [id number] [address] [place] [address], [place] [address] 05 Sep, 2013 [facility] [address] [id number] [address] [place] [address], [place] [address] 05 Sep, 2013 [facility] [address] [id number] [address] [place] [address], [place] [address] 03 Jan, 2013 [facility] [address] [id number] [address] [place] [address], [place] [address] Jan, 2013 [facility] [address] [id number] [address] [place] [address], [place] [address] Jan, 2013 [facility] [address] [id number] [address] [place] [address], [place] [address] Jan, 2013 [facility] [address] [id number] [address] [place] [address], [place] [address] Jan, 2013 [facility] [address] [id number] [address] [place] [address], [place] [address] Dec, [facility] [address] [id number] [address] [place] [address], [place] [address] Dec, [facility] [address] [id number] [address] [place] [id number] Dec, [facility] [address] [id number] [address] [place] [address], [place] [address] Dec, [facility] [address] [id number] [address] [place] [address], [place] [address] Dec, [facility] [address] [id number] [address] [place] [id number] Dec, Via [address] [id number] Dec, Via [facility] [address] [facility] [id number] Dec, [facility] [address] [id number] [facility] [place] [address] Dec, [facility] [address] [id number] [facility] [place] [address] Dec, [facility] [address] [id number] [address] [place] [address], [place] [address] Dec, [facility] [address] [id number] [address] [place] [address], [place] [address] Dec, [facility] [address] [id number] [address] [place] [address], [place] [address] Nov, [facility] [address] [id number] [address] [place] [address], [place] [address] Nov, [facility] [address] [id number] [address] [place] [address], [place] [address] Nov, [facility] [address] [id number] [address] [place] [address], [place] [address] Nov, [facility] [address] [id number] [address] [place] [address], [place] [address] Nov, [facility] [address] [id number] [address] [place] [address], [place] [address] Nov, [facility] [address] [id number] [address] [place] [address], [place] [address] Nov, [facility] [address] [id number] [address] [place] [address], [place] [address] Nov, [facility] [address] [id number] [address] [place] [address], [place] [address] Nov, [facility] [address] [id number] [address] [place] [address], [place] [address] Nov, [facility] [address] [id number] [facility] [place] [address] Nov, [facility] [address] [id number] [facility] [place] [address] Nov, [facility] [address] [id number] [facility] [place] [address] Nov, [facility] [address] [id number] [address] [place] [address], [place] [address] Oct, [facility] [address] [id number] [address] [place] [address], [place] [address] Oct, [facility] [address] [id number] [address] [place] [address], [place] [address] Oct, [facility] [address] [id number] [address] [place] [address], [place] [address] Oct, [facility] [address] [id number] [address] [place] [address], [place] [address] Oct, [facility] [address] [id number] [address] [place] [address], [place] [address] Oct, [facility] [address] [id number] [address] [place] [address], [place] [address] Oct, [facility] [address] [id number] [address] [place] [address], [place] [address] Oct, [facility] [address] [id number] [address] [place] [address], [place] [address] Oct, [facility] [address] [id number] [address] [place] [address], [place] [address] Oct, [facility] [address] [id number] [address] [place] [address], [place] [address] Oct, [facility] [address] [id number] [address] [place] [address], [place] [address] Oct, [facility] [address] [id number] [address] [place] [address], [place] [address] September, [facility] [address] [id number] [facility] [place] [address] September, [facility] [address] [id number] [facility] [place] [address] September, [facility] [address] [id number] [facility] [place] [address] September, [facility] [address] [id number] [address] [place] [address], [place] [address] Aug, [facility] [address] [id number] [facility] [place] [address] Aug, [facility] [address] [id number] [address] [place] [address], [place] [address] Aug, [facility] [address] [id number] [address] [place] [address], [place] [address] Aug, [facility] [address] [id number] [address] [place] [address], [place] [address] Aug, [facility] [address] [id number] [address] [place] [address], [place] [address] Aug, [facility] [address] [id number] [address] [place] [address], [place] [address] Aug, [facility] [address] [id number] [address] [place] [address], [place] [address] Jul, [facility] [address] [id number] [address] [place] [address], [place] [address] Jul, [facility] [address] [id number] [address] [place] [address], [place] [address] Jul, [facility] [address] [id number] [address] [place] [address], [place] [address] 28 Jul, 2013 [facility] [address] [id number] [address] [place] [address], [place] [address] 19 Jul, 2013 [facility] [address] [id number] [address] [place] [address], [place] [address] Jul, [facility] [address] [id number] [address] [place] [address], [place] [address] 18 Jul, 2013 [facility] [address] [id number] [address] [place] [address], [place] [address] 18 Jul, 2013 [facility] [address] [id number] [address] [place] [address], [place] [address] 18 Jul, 2013 [facility] [address] [id number] [address] [place] [address], [place] [address] 18 Jul, 2013 [facility] [address] [id number] [address] [place] [address], [place] [address] 18 Jul, 2013 [facility] [address] [id number] [address] [place] [address], [place] [address] 18 Jul, 2013 [facility] [address] [id number] [address] [place] [address], [place] [address] 14 Jul, 2013 [facility] [address] [id number] [address] [place] [address], [place] [address] 14 Jul, 2013 [facility] [address] [id number] [address] [place] [address], [place] [address] Jul, [facility] [address] [id number] [address] [place] [address], [place] [address] Jul, [facility] [address] [id number] [address] [place] [address], [place] [address] Jul, [facility] [address] [id number] [address] [place] [address], [place] [address] Jul, [facility] [address] [id number] [address] [place] [address], [place] [address] Jun, [facility] [address] [id number] [address] [place] [address], [place] [address] Jun, [facility] [address] [id number] [address] [place] [address], [place] [address] Jun, [facility] [address] [id number] [address] [place] [address], [place] [address] 15 Jun, 2013 [facility] [address] [id number] [address] [place] [address], [place] [address] 14 Jun, 2013 [facility] [address] [id number] [address] [place] [address], [place] [address] 14 Jun, 2013 [facility] [address] [id number] [address] [place] [address], [place] [address] 14 Jun, 2013 [facility] [address] [id number] [address] [place] [address], [place] [address] 14 Jun, 2013 [facility] [address] [id number] [address] [place] [address], [place] [address] 14 Jun, 2013 [facility] [address] [id number] [address] [place] [address], [place] [address] 14 Jun, 2013 [facility] [address] [id number] [address] [place] [address], [place] [address] 27 May, 2013 [facility] [address] [id number] [address] [place] [address], [place] [address] 27 May, 2013 [facility] [address] [id number] [address] [place] [address], [place] [address] 26 May, 2013 [facility] [address] [id number] [address] [place] [address], [place] [address] 19 May, 2013 [facility] [address] [id number] [address] [place] [address], [place] [address] 19 May, 2013 [facility] [address] [id number] [address] [place] [address], [place] [address] 16 May, 2013 [facility] [address] [id number] [address] [place] [address], [place] [address] 16 May, 2013 [facility] [address] [id number] [address] [place] [address], [place] [address] 16 May, 2013 [facility] [address] [id number] [address] [place] [address] 16 May, 2013 [facility] [address] [id number] [address] [place] [address], [place] [address] 13 May, 2013 [facility] [address] [id number] [address] [place] [id number] 13 May, 2013 [facility] [address] [id number] [address] [place] [address], [place] [address] 11 May, 2013 [facility] [address] [id number] [address] [place] [address] 20 Apr, 2013 [facility] [address] [id number] [address] [place] [address], [place] [address] 18 Apr, 2013 [facility] [address] [id number] [address] [place] [id number] 18 Apr, 2013 [facility] [address] [id number] [address] [place] [id number] Apr, [facility] [address] [id number] [address] [place] [id number] Apr, [facility] [address] [id number] [address] [place] [id number] 08 Apr, 2013 [facility] [address] [id number] [address] [place] [id number] 08 Apr, 2013 [facility] [address] [id number] [address] [place] [id number] 07 Apr, 2013 [facility] [address] [id number] [address] [place] [id number] 07 Apr, 2013 [facility] [address] [id number] [address] [place] [id number] 07 Apr, 2013 [facility] [address] [id number] [address] [place] [id number] 07 Apr, 2013 [facility] [address] [id number] [address] [place] [address], [place] [address] 25 Mar, 2013 [facility] [address] [id number] [address] [place] [address], [place] [address] Mar, [facility] [address] [id number] [address] [place] [address], [place] [address] Mar, [facility] [address] [id number] [address] [place] [address], [place] [address] Mar, [facility] [address] [id number] [address] [place] [address], [place] [address] Mar, [facility] [address] [id number] [address] [place] [address], [place] [address] Mar, [facility] [address] [id number] [address] [place] [address], [place] [address] Mar, [facility] [address] [id number] [address] [place] [address], [place] [address] Mar, [facility] [address] [id number] [address] [place] [address], [place] [address] 18 Mar, 2013 [facility] [address] [id number] [address] [place] [address], [place] [address] 15 Mar, 2013 [facility] [address] [id number] [address] [place] [address], [place] [address] 15 Mar, 2013 [facility] [address] [id number] [address] [place] [address], [place] [address] Mar, [facility] [address] [id number] [address] [place] [address], [place] [address] 30 Jan, 2013 [facility] [address] [id number] [address] [place] [address], [place] [address] 25 Jan, 2013 [facility] [address] [id number] [address] [place] [address], [place] [address] 20 Jan, 2013 [facility] [address] [id number] [address] [place] [address], [place] [address] 10 Jan, 2013 [facility] [address] [id number] [address] [place] [address], [place] [address] Dec, [facility] [address] [id number] [facility] [place] [address] Dec, [facility] [address] [id number] [address] [place] [address], [place] [address] Dec, [facility] [address] [id number] [address] [place] [address], [place] [address] Dec, [facility] [address] [id number] [address] [place] [address], [place] [address] Dec, [facility] [address] [id number] [address] [place] [address], [place] [address] Dec, [facility] [address] [id number] [address] [place] [address], [place] [address] Dec, [facility] [address] [id number] [address] [place] [address], [place] [address] Dec, [facility] [address] [id number] [address] [place] [address], [place] [address] Dec, [facility] [address] [id number] [address] [place] [address], [place] [address] Nov, [facility] [address] [id number] [address] [place] [address], [place] [address] Nov, [facility] [address] [id number] [address] [place] [address], [place] [address] Nov, [facility] [address] [id number] [address] [place] [address], [place] [address] Nov, [facility] [address] [id number] [address] [place] [address], [place] [address] Nov, [facility] [address] [id number] [address] [place] [address], [place] [address] Nov, [facility] [address] [id number] [address] [place] [address], [place] [address] Nov, [facility] [address] [id number] [address] [place] [address], [place] [address] Nov, [facility] [address] [id number] [facility] [place] [address] Oct, [facility] [address] [id number] [address] [place] [address], [place] [id number] Oct, [facility] [address] [id number] [address] [place] [address], [place] [address] Oct, [facility] [address] [id number] [address] [place] [address], [place] [id number] Oct, [facility] [address] [id number] [address] [place] [address], [place] [address] Oct, [facility] [address] [id number] [address] [place] [address], [place] [address] Oct, [facility] [address] [id number] [address] [place] [address], [place] [address] Oct, [facility] [address] [id number] [address] [place] [address], [place] [id number] Oct, [facility] [address] [id number] [address] [place] [address], [place] [address] Oct, [facility] [address] [id number] [address] [place] [address], [place] [id number] 18 Oct, 2012 [facility] [address] [id number] [address] [place] [address], [place] [id number] 17 Oct, 2012 [facility] [address] [id number] [address] [place] [address], [place] [id number] 14 Oct, 2012 [facility] [address] [id number] [address] [place] [address], [place] [id number] 07 Oct, 2012 [facility] [address] [id number] [address] [place] [address], [place] [address] September, [facility] [address] [id number] [address] [place] [address], [place] [address] September, [facility] [address] [id number] [address] [place] [address], [place] [id number] September, [facility] [address] [id number] [address] [place] [address], [place] [address] Aug, [facility] [address] [id number] [address] [place] [address], [place] [address] Aug, [facility] [address] [id number] [address] [place] [address], [place] [address] Aug, [facility] [address] [id number] [address] [place] [address], [place] [address] Aug, [facility] [address] [id number] [address] [place] [address], [place] [address] Aug, [facility] [address] [id number] [address] [place] [address], [place] [id number] Aug, [facility] [address] [id number] [address] [place] [address], [place] [address] Aug, [facility] [address] [id number] [address] [place] [address], [place] [address] Jul, [facility] [address] [id number] [address] [place] [address], [place] [address] Jul, [facility] [address] [id number] [address] [place] [address], [place] [address] Jul, [facility] [address] [id number] [address] [place] [address], [place] [address] Jul, [facility] [address] [id number] [address] [place] [address], [place] [address] Jul, [facility] [address] [id number] [address] [place] [address], [place] [id number] Jul, [facility] [address] [id number] [address] [place] [address], [place] [address] Jul, [facility] [address] [id number] [address] [place] [address], [place] [address] Jul, [facility] [address] [id number] [address] [place] [address], [place] [address] Jul, [facility] [address] [id number] [address] [place] [address], [place] [address] Jul, [facility] [address] [id number] [address] [place] [address], [place] [address] Jul, [facility] [address] [id number] [address] [place] [address], [place] [address] Jul, [facility] [address] [id number] [address] [place] [address], [place] [address] Jul, [facility] [address] [id number] [address] [place] [address], [place] [address] 24 Jun, 2012 [facility] [address] [id number] [address] [place] [address], [place] [address] Jun, [facility] [address] [id number] [address] [place] [address], [place] [address] Jun, [facility] [address] [id number] [address] [place] [address], [place] [id number] 17 Jun, 2012 [facility] [address] [id number] [address] [place] [address], [place] [address] 15 Jun, 2012 [facility] [address] [id number] [address] [place] [address], [place] [address] Jun, [facility] [address] [id number] [address] [place] [address], [place] [address] Jun, [facility] [address] [id number] [address] [place] [address], [place] [address] May, [facility] [address] [id number] [address] [place] [address], [place] [address] May, [facility] [address] [id number] [address] [place] [address], [place] [address] May, [facility] [address] [id number] [address] [place] [address], [place] [address] May, [facility] [address] [id number] [address] [place] [address], [place] [address] May, [facility] [address] [id number] [address] [place] [address], [place] [address] May, [facility] [address] [id number] [address] [place] [address], [place] [address] May, [facility] [address] [id number] [address] [place] [address], [place] [address] May, [facility] [address] [id number] [address] [place] [address], [place] [address] May, [facility] [address] [id number] [address] [place] [address], [place] [address] May, [facility] [address] [id number] [address] [place] [address], [place] [address] Apr, [facility] [address] [id number] [address] [place] [address], [place] [address] Apr, [facility] [address] [id number] [address] [place] [address], [place] [address] Apr, [facility] [address] [id number] [address] [place] [address], [place] [id number] Apr, [facility] [address] [id number] [address] [place] [address], [place] [address] Apr, [facility] [address] [id number] [address] [place] [address], [place] [address] Apr, [facility] [address] [id number] [address] [place] [address], [place] [address] Apr, [facility] [address] [id number] [address] [place] [address], [place] [address] Apr, [facility] [address] [id number] [address] [place] [address], [place] [address] Apr, [facility] [address] [id number] [address] [place] [address], [place] [address] Apr, [facility] [address] [id number] [address] [place] [id number] Apr, [facility] [address] [id number] [address] [place] [address], [place] [address] Apr, [facility] [address] [id number] [address] [place] [phone] Mar, [facility] [address] [id number] [address] [place] [address], [place] [address] Mar, [facility] [address] [id number] [address] [place] [id number] Mar, [facility] [address] [id number] [address] [place] [address], [place] [address] Mar, 2011 [facility] [address] [id number] [address] [place] [id number] Mar, [facility] [address] [id number] [address] [place] [id number] Mar, 2011 [facility] [address] [id number] [address] [place] [phone] Mar, [facility] [address] [id number] [address] [place] [id number] 30 Mar, 2012 [facility] [address] [id number] [address] [place] [phone] Mar, 2011 [facility] [address] [id number] [address] [place] [phone] Mar, [facility] [address] [id number] [address] [place] [id number] Mar, [facility] [address] [id number] [address] [place] [phone] Mar, [facility] [address] [id number] [address] [place] [address], [place] [id number] 12 Mar, 2012 [facility] [address] [id number] [address] [place] [address], [place] [id number] 12 Mar, 2012 [facility] [address] [id number] [address] [place] [address], [place] [address] 03 Mar, 2012 [facility] [address] [id number] [address] [place] [address], [place] [id number] 02 Mar, 2012 [facility] [address] [id number] [address] [place] [address], [place] [id number] 25 Jan, 2011 [facility] [address] [id number] [address] [place] [address], [place] [address] 24 Jan, 2012 [facility] [address] [id number] [address] [place] [address], [place] [id number] 22 Jan, 2012 [facility] [address] [id number] [address] [place] [address], [place] [id number] 22 Jan, 2012 [facility] [address] [id number] [address] [place] [address], [place] [address] 21 Jan, 2012 [facility] [address] [id number] [address] [place] [address], [place] [id number] 18 Jan, 2012 [facility] [address] [id number] [address] [place] [address], [place] [id number] 14 Jan, 2012 [facility] [address] [id number] [address] [place] [address], [place] [id number] 07 Jan, 2012 [facility] [address] [id number] [address] [place] [address], [place] [id number] 15 Dec, 2011 [facility] [address] [id number] [address] [place] [address], [place] [address] 10 Dec, 2011 [facility] [address] [id number] [address] [place] [address], [place] [id number] 09 Dec, 2011 [facility] [address] [id number] [address] [place] [address], [place] [address] Dec, [facility] [address] [id number] [address] [place] [address], [place] [address] Dec, [facility] [address] [id number] [address] [place] [address], [place] [address] Dec, [facility] [address] [id number] [address] [place] [address], [place] [address] Dec, [facility] [address] [id number] [address] [place] [address], [place] [address] Nov, [facility] [address] [id number] [address] [place] [address], [place] [address] Oct, [facility] [address] [id number] [address] [place] [address], [place] [id number] Aug, [facility] [address] [id number] [address] [place] [address], [place] [address] Jul, [facility] [address] [id number] [address] [place] [address], [place] [address] Jul, [facility] [address] [id number] [address] [place] [address], [place] [id number] 16 Jul, 2011 [facility] [address] [id number] [address] [place] [address], [place] [address] 14 Jul, 2011 [facility] [address] [id number] [address] [place] [address], [place] [address] Jul, [facility] [address] [id number] [address] [place] [address], [place] [address] Jul, [facility] [address] [id number] [address] [place] [address], [place] [address] Jul, [facility] [address] [id number] [address] [place] [address], [place] [id number] 15 Jul, 2011 [facility] [address] [id number] [address] [place] [address], [place] [address] 13 Jul, 2011 [facility] [address] [id number] [address] [place] [address], [place] [address] 03 Jul, 2011 [facility] [address] [id number] [address] [place] [address], [place] [address] Jul, [facility] [address] [id number] [address] [place] [address], [place] [address] Jun, [facility] [address] [id number] [address] [place] [address], [place] [address] Jun, [facility] [address] [id number] [address] [place] [address], [place] [address] Jun, [facility] [address] [id number] [address] [place] [address], [place] [address] Jun, [facility] [address] [id number] [address] [place] [address], [place] [address] Jun, [facility] [address] [id number] [address] [place] [address], [place] [address] Jun, [facility] [address] [id number] [address] [place] [address], [place] [address] Jun, [facility] [address] [id number] [address] [place] [address], [place] [address] May, [facility] [address] [id number] [address] [place] [address], [place] [address] May, [facility] [address] [id number] [address] [place] [address], [place] [address] May, [facility] [address] [id number] [address] [place] [address], [place] [address] May, [facility] [address] [id number] [address] [place] [address], [place] [address] May, [facility] [address] [id number] [address] [place] [address], [place] [address] May, [facility] [address] [id number] [address] [place] [address], [place] [address] May, [facility] [address] [id number] [address] [place] [phone] May, [facility] [address] [id number] [address] [place] [phone] May, [facility] [address] [id number] [address] [place] [id number] May, [facility] [address] [id number] [address] [place] [id number] Apr, [facility] [address] [id number] [address] [place] [id number] Apr, [facility] [address] [id number] [address] [place] [id number] Apr, [facility] [address] [id number] [address] [place] [phone] Apr, [facility] [address] [id number] [address] [place] [phone] Mar, [facility] [address] [id number] [address] [place] [id number] Mar, [facility] [address] [id number] [address] [place] [id number] Mar, [facility] [address] [id number] [address] [place] [phone] Mar, IMMUNIZATIONS No Known Immunizations SOCIAL HISTORY Never Assessed REASON FOR VISIT PLAN OF CARE VITAL SIGNS Height 61 in 2013-04-07 Weight 173.25 lbs 2013-04-07 Temperature 98.3 degrees Fahrenheit 2013-04-07 Heart Rate 100 bpm 2013-04-07 Respiratory Rate 24 2013-04-07 Blood pressure systolic 124 mmHg 2013-04-07 Blood pressure diastolic 104 mmHg 2013-04-07 MEDICATIONS Unknown Medications RESULTS No Results PROCEDURES Procedure Date Ordered Result Body Site ASSAY OF URINE SODIUM Apr 07, 2013 COLUMN CHROMOTOGRAPHY, QUANT Apr 07, 2013 DRUG SCREEN, QUALITATE/MULTI Apr 07, 2013 URINALYSIS, AUTO, W/O SCOPE Apr 07, 2013 INSTRUCTIONS MEDICATIONS ADMINISTERED No Known Medications [...]
--- OUTSIDE RECORDS SUMMARY | 2020-01-03 18:04 | XMS REPORT ---
Author Author Pattie Moffett Doctor Organization [facility] Address Unknown Phone Unavailable Care Team Providers Care Supervisor Scenic Arts Name Role Phone Migration, Doctor Unavailable Unavailable PROBLEMS Type Condition ICD9-CM Code INR54-VE Code Onset Dates Condition S tatus SNOMED Code Problem Major depressive disorder in partial remission F32 .4 Active 15696461 Problem FRANCIS (generalized anxiety disorder) F41.1 Active 01316734 Problem Conversion disorder (or hysterical neurosis, conversion ty pe) F44.9 Active 88442822 Problem Thoracic disc herniation M51.24 Activ e 019884674 Problem Slow transit constipation K59.01 Acti ve 62988112 Problem Constipation, unspecified constipation type K59.00 Active 95172750 Problem Mild episode of recurrent major depressive disorder F33.0 Active 589668748 Problem High blood pressure I10 Active 23558576 Problem Paroxysmal tachycardia I47.9 Active 23847472 Problem Nonadherence to medication Z91.14 Act vivian 082571506 Problem Seizure disorder G40.909 Active 128 333714 Problem Restless leg syndrome G25.81 Active 54938273 Problem Other chronic pain G89.29 Active 8 5609503 Problem Mild intermittent asthma without complication J45. 20 Active 782070950 Problem Obesity (BMI 30.0-34.9) E66.9 Active [id number] ALLERGIES No Information ENCOUNTERS Encounter Location Date Diagnosis [facility] [address] [facility] [id number] [address] [place] [phone] September, [facility] [address] [facility] [id number] [address] [place] [phone] September, [facility] [address] [facility] [id number] [address] [place] [phone] September, [facility] [address] [facility] [id number] [address] [place] [phone] Aug, [facility] [address] [id number] [address] [place] [address] [phone] Aug, Dental examination Z01.20 [facility] [address] [id number] [address] [place] [address] [phone] 15 Aug, 2019 Dental examination Z01.20 an d Caries K02.[address] [facility] [address] [id number] [address] [place] [phone] Aug, [facility] [address] [id number] [address] [place] [phone] Aug, [facility] [address] [id number] [address] [place] [phone] Aug, Other chronic pain G89.29 an d Back muscle spasm M62.830 [facility] [address] [id number] [address] [place] [phone] Aug, [facility] [address] [id number] [address] [place] [phone] Aug, Major depressive disorder in partial remission F32.4 ; FRANCIS (generalized anxiety disorder) F41.1 ; Restless leg syndrome G25.81 and Nonadherence to medication Z91.14 [facility] [address] [id number] [address] [place] [phone] Aug, [facility] [address] [id number] [address] [place] [phone] Jul, [facility] [address] [id number] [address] [place] [phone] Jul, [facility] [address] [id number] [address] [place] [phone] Jul, Major depressive disorder in partial remission F32.4 ; FRANCIS (generalized anxiety disorder) F41.1 ; Restless leg syndrome G25.81 and High blood pressure I10 [facility] [address] [id number] [address] [place] [phone] 17 Jul, 2019 [facility] [address] [id number] [address] [place] [phone] Jul, [facility] [address] [id number] [address] [place] [phone] Jun, [facility] [address] [id number] [address] [place] [phone] May, [facility] [address] [facility] [id number] [address] [place] [phone] Apr, [facility] [address] [id number] [address] [place] [phone] Apr, [facility] [address] [id number] [address] [place] [phone] Mar, [facility] [address] [facility] [id number] [address] [place] [phone] Mar, Major depressive disorder in partial remission F32.4 ; FRANCIS (generalized anxiety disorder) F41.1 and Restless leg syndrome G25.81 [facility] [address] [facility] [id number] [address] [place] [phone] Mar, Obesity (BMI 30.0-34.9) E66. 9 [facility] [address] [facility] [id number] [address] [place] [phone] Jan, [facility] [address] [facility] [id number] [address] [place] [phone] Jan, Burn T30.0 [facility] [address] [facility] [id number] [address] [place] [phone] Dec, [facility] [address] [facility] [id number] [address] [place] [phone] Nov, [facility] [address] [facility] [id number] [address] [place] [phone] Nov, [facility] [address] [id number] [address] [place] [phone] Nov, Dental examination Z01.20 [facility] [address] [facility] [id number] [address] [place] [phone] September, [facility] [address] [facility] [id number] [address] [place] [address] [phone] September, Decay, teeth K02.9 and Denta l examination Z01.20 [facility] [address] [facility] [id number] [address] [place] [address] [phone] September, Dental examination Z01.20 [facility] [address] [id number] [place] [phone] September, FRANCIS (generalized anxiety dis order) F41.1 ; Major depressive disorder in partial remission F32.4 and Restless leg syndrome G25.81 [place] [address] [id number] [place] [phone] Aug, [facility] [address] [place] [id number] [place] [phone] Jul, [place] [address] [phone] Jul, Encounter to discuss test re sults Z71.[address] [address] Jul, Pelvic pain R10.2 ; Screenin g for breast cancer Z12.31 and Obesity (BMI 30.0-34.9) E66.9 [place] [address] [place] [id number] [address] [place] [address] Jul, Mild intermittent asthma wit hout complication J45.20 [facility] [place] [address] [facility] [id number] [address] [place] [address] Jul, Major depressive disorder in partial remission F32.4 and FRANCIS (generalized anxiety disorder) F41.1 [place] [address] [place] [id number] [address] [place] [phone] Jul, [facility] [place] [address] [place] [id number] [place] [phone] Jun, [place] [facility] [address] [id number] [address] [place] [phone] May, Major depressive disorder in partial remission F32.4 ; FRANCIS (generalized anxiety disorder) F41.1 and Restless leg syndrome G25.81 [facility] [address] [id number] [address] [place] [phone] Apr, [facility] [address] [id number] [address] [place] [phone] Mar, [facility] [address] [id number] [address] [place] [phone] Jan, Pain in thoracic spine M54.6 and Other chronic pain G89.29 [facility] [address] [id number] [address] [place] [phone] 14 Jan, 2018 [facility] [address] [id number] [address] [place] [phone] 11 Jan, 2018 Mild episode of recurrent ma saray depressive disorder F33.0 ; FRANCIS (generalized anxiety disorder) F41.1 and Restless leg syndrome G25.81 [facility] [address] [id number] [address] [place] [phone] Dec, [facility] [address] [id number] [address] [place] [phone] Dec, Hospital discharge follow-up Z09 [facility] [address] [id number] [address] [place] [phone] Nov, [facility] [address] [id number] [address] [place] [address] Nov, [facility] [address] [id number] [address] [place] [phone] September, [facility] [address] [id number] [address] [place] [phone] September, [facility] [address] [id number] [address] [place] [phone] September, Major depressive disorder in partial remission F32.4 ; FRANCIS (generalized anxiety disorder) F41.1 and Restless leg syndrome G25.81 [facility] [address] [id number] [address] [place] [phone] September, [facility] [address] [id number] [address] [place] [address] Jul, [facility] [address] [id number] [address] [place] [phone] Jul, Dorsalgia, unspecified M54.9 [facility] [address] [id number] [address] [place] [phone] Jul, Mild episode of recurrent ma saray depressive disorder F33.0 and FRANCIS (generalized anxiety disorder) F41.1 [facility] [address] [id number] [address] [place] [phone] May, [facility] [address] [id number] [address] [place] [phone] May, Dysuria R30.0 and Acute cyst itis with hematuria N30.01 [facility] [address] [id number] [address] [place] [phone] Apr, [facility] [address] [facility] [id number] [address] [place] [phone] Apr, Major depressive disorder in partial remission F32.4 and FRANCIS (generalized anxiety disorder) F41.1 [facility] [address] [id number] [address] [place] [address] Mar, Paroxysmal tachycardia I47.9 [facility] [address] [id number] [address] [place] [address] Mar, Paroxysmal tachycardia I47.9 and Pain of left lower extremity M79.605 [facility] [address] [id number] [address] [place] [address] Mar, FRANCIS (generalized anxiety dis order) F41.1 and Major depressive disorder in partial remission F32.4 [facility] [address] [id number] [address] [place] [phone] 25 Jan, 2017 [facility] [address] [id number] [address] [place] [phone] 14 Jan, 2017 [facility] [address] [id number] [address] [place] [phone] 13 Jan, [address] [facility] [address] [id number] [address] [place] [phone] Dec, Constipation, unspecified co nstipation type K59.00 [facility] [address] [id number] [address] [place] [phone] Dec, [facility] [address] [id number] [address] [place] [phone] Nov, [facility] [address] [facility] [id number] [address] [place] [phone] Nov, Major depressive disorder in partial remission F32.4 and FRANCIS (generalized anxiety disorder) F41.1 [facility] [address] [id number] [address] [place] [phone] Oct, Abdominal pain R10.9 and Slo w transit constipation K59.01 [facility] [address] [id number] [address] [place] [phone] Aug, Major depressive disorder in partial remission F32.4 ; FRANCIS (generalized anxiety disorder) F41.1 ; Conversion disorder (or hysterical neurosis, conversion type) F44.9 ; Dorsalgia, unspecified M54.9 and Long-term use of high-risk medication Z79.899 [facility] [address] [id number] [address] [place] [phone] Aug, [facility] [address] [facility] [id number] [address] [place] [phone] 15 Jul, 2016 Paroxysmal tachycardia I47.9 [facility] [address] [facility] [id number] [address] [place] [phone] Jul, Paroxysmal tachycardia I47.9 [facility] [address] [facility] [id number] [address] [place] [phone] Jun, [facility] [address] [facility] [id number] [address] [place] [phone] Jun, Major depressive disorder in partial remission F32.4 ; FRANCIS (generalized anxiety disorder) F41.1 and Conversion disorder (or hysterical neurosis, conversion type) F44.[address] [facility] [address] [id number] [address] [place] [phone] May, Pelvic pain R10.[address] [facility] [address] [facility] [id number] [address] [place] [address] Apr, Gastroenteritis K52.[address] [facility] [address] [facility] [id number] [address] [place] [address] Apr, Blood in urine R31.9 and Acu te cystitis with hematuria N30.01 [facility] [address] [facility] [id number] [address] [place] [address] Apr, Major depressive disorder in partial remission F32.4 ; FRANCIS (generalized anxiety disorder) F41.1 and Conversion disorder (or hysterical neurosis, conversion type) F44.9 [facility] [address] [facility] [id number] [address] [place] [phone] Apr, [facility] [address] [facility] [id number] [address] [place] [address] Apr, Abnormal mammogram R92.8 [facility] [address] [facility] [id number] [address] [place] [phone] Mar, [facility] [address] [facility] [id number] [address] [place] [address] Mar, Gastroenteritis K52.9 and Se izure disorder G40.909 [facility] [address] [facility] [id number] [address] [place] [address] Dec, [facility] [address] [id number] [address] [place] [address] Dec, Other headache syndrome G44. 89 [facility] [address] [id number] [address] [place] [address] Dec, [facility] [address] [id number] [address] [place] [address] Dec, Thoracic disc herniation M51 .24 [facility] [address] [id number] [address] [place] [address] Dec, [facility] [address] [id number] [address] [place] [phone] Nov, Major depressive disorder in partial remission F32.4 and FRANCIS (generalized anxiety disorder) F41.1 [facility] [address] [id number] [address] [place] [address] Nov, [facility] [address] [id number] [address] [place] [address] Nov, Dorsalgia, unspecified M54.9 [facility] [address] [id number] [address] [place] [address] Oct, [facility] [address] [id number] [address] [place] [phone] September, [facility] [address] [id number] [address] [place] [phone] Aug, [facility] [address] [id number] [address] [place] [address] Aug, Major depressive disorder in partial remission F32.4 and FRANCIS (generalized anxiety disorder) F41.1 [facility] [address] [id number] [address] [place] [address] Aug, [facility] [address] [id number] [address] [place] [address] Jul, Abnormal mammogram R92.8 [facility] [address] [id number] [address] [place] [address] Jul, [facility] [address] [id number] [address] [place] [phone] Jul, [facility] [address] [id number] [address] [place] [address] Jul, [facility] [address] [facility] [id number] [address] [place] [address] Jul, [facility] [address] [id number] [address] [place] [phone] Jul, [facility] [address] [id number] [address] [place] [address] Jul, [facility] [address] [facility] [id number] [address] [place] [phone] Jun, Major depressive disorder in partial remission F32.4 and FRANCIS (generalized anxiety disorder) F41.1 [facility] [address] [facility] [id number] [address] [place] [phone] Jun, [facility] [address] [id number] [address] [place] [phone] May, [facility] [address] [facility] [id number] [address] [place] [phone] Apr, [facility] [address] [facility] [id number] [address] [place] [address] Mar, Major depressive disorder, r ecurrent episode, moderate F33.1 ; PTSD (post-traumatic stress disorder) F43.10 and FRANCIS (generalized anxiety disorder) F41.1 [facility] [address] [id number] [address] [place] [phone] Mar, [facility] [address] [facility] [id number] [address] [place] [phone] Mar, [facility] [address] [facility] [id number] [address] [place] [phone] Mar, [facility] [address] [id number] [address] [place] [phone] 07 Mar, 2015 [facility] [address] [id number] [address] [place] [phone] 23 Jan, 2015 [facility] [address] [id number] [address] [place] [phone] 15 Jan, 2015 [facility] [address] [id number] [address] [place] [phone] 15 Jan, 2015 [facility] [address] [id number] [address] [place] [phone] 14 Jan, 2015 Thoracic disc herniation 722 .11 [facility] [address] [id number] [address] [place] [address] Dec, [facility] [address] [id number] [address] [place] [phone] Dec, [facility] [address] [id number] [address] [place] [phone] Dec, [facility] [address] [id number] [address] [place] [phone] Nov, [facility] [address] [id number] [address] [place] [phone] Nov, Generalized anxiety disorder 300.02 ; Posttraumatic stress disorder 309.81 and Major depressive disorder, recurrent episode, moderate 296.32 [facility] [address] [id number] [address] [place] [address] Nov, [facility] [address] [id number] [address] [place] [phone] Nov, [facility] [address] [id number] [address] [place] [id number] Oct, [facility] [address] [id number] [address] [place] [id number] Oct, [facility] [address] [id number] [address] [place] [phone] Oct, [facility] [address] [id number] [address] [place] [address], [place] [address] September, [facility] [address] [id number] [address] [place] [address], [place] [address] September, [facility] [address] [id number] [address] [place] [address], [place] [address] Aug, [facility] [address] [id number] [address] [place] [address], [place] [address] Aug, [facility] [address] [id number] [address] [place] [address], [place] [address] Jul, [facility] [address] [id number] [address] [place] [address], [place] [address] Jul, [facility] [address] [id number] [address] [place] [address], [place] [address] Jul, [facility] [address] [id number] [address] [place] [address], [place] [id number] 17 Jul, 2014 [facility] [address] [id number] [address] [place] [address], [place] [address] Jul, [facility] [address] [id number] [address] [place] [address], [place] [address] Jul, [facility] [address] [id number] [address] [place] [address], [place] [address] Jul, [facility] [address] [id number] [address] [place] [address], [place] [address] Jul, [facility] [address] [id number] [address] [place] [address], [place] [address] Jul, [facility] [address] [id number] [address] [place] [address], [place] [address] Jul, [facility] [address] [id number] [address] [place] [address], [place] [address] Jun, [facility] [address] [id number] [address] [place] [address], [place] [address] Jun, [facility] [address] [id number] [address] [place] [address], [place] [address] Jun, [facility] [address] [id number] [address] [place] [address], [place] [address] May, [facility] [address] [id number] [address] [place] [address], [place] [address] Apr, [facility] [address] [id number] [address] [place] [address], [place] [address] Apr, [facility] [address] [id number] [address] [place] [address], [place] [address] Apr, [facility] [address] [id number] [address] [place] [address], [place] [address] Apr, [facility] [address] [id number] [address] [place] [address], [place] [address] Apr, [facility] [address] [id number] [address] [place] [address], [place] [address] Apr, [facility] [address] [id number] [address] [place] [address], [place] [address] Apr, [facility] [address] [id number] [address] [place] [address], [place] [address] Apr, [facility] [address] [id number] [address] [place] [address], [place] [address] Mar, [facility] [address] [id number] [address] [place] [address], [place] [address] Mar, [facility] [address] [id number] [address] [place] [address], [place] [address] Mar, [facility] [address] [id number] [address] [place] [address], [place] [address] Mar, [facility] [address] [id number] [address] [place] [address], [place] [address] Mar, [facility] [address] [id number] [address] [place] [address], [place] [address] 24 Mar, 2014 [facility] [address] [id number] [address] [place] [address], [place] [address] 24 Mar, 2014 [facility] [address] [id number] [address] [place] [address], [place] [address] Mar, [facility] [address] [id number] [address] [place] [address], [place] [address] Mar, [facility] [address] [id number] [address] [place] [address], [place] [address] Mar, [facility] [address] [id number] [address] [place] [address], [place] [address] 17 Mar, 2014 [facility] [address] [id number] [address] [place] [address], [place] [address] Mar, [facility] [address] [id number] [address] [place] [address], [place] [address] 14 Mar, 2014 [facility] [address] [id number] [address] [place] [address], [place] [address] Mar, [facility] [address] [id number] [address] [place] [address], [place] [address] Mar, [facility] [address] [id number] [address] [place] [address], [place] [address] Mar, [facility] [address] [id number] [address] [place] [address], [place] [address] Mar, [facility] [address] [id number] [address] [place] [address], [place] [address] Jan, [facility] [address] [id number] [address] [place] [address], [place] [address] 19 Jan, 2014 [facility] [address] [id number] [address] [place] [address], [place] [address] 09 Jan, 2014 [facility] [address] [id number] [address] [address] 09 Jan, 2013 [facility] [address] [id number] [address] [place] [address], [place] [address] 05 Sep, 2013 [facility] [address] [id number] [address] [place] [address], [place] [address] 05 Jan, 2013 [facility] [address] [id number] [address] [place] [address], [place] [address] 05 Sep, 2013 [facility] [address] [id number] [address] [place] [address], [place] [address] 05 Sep, 2013 [facility] [address] [id number] [address] [place] [address], [place] [address] 03 Jan, 2013 [facility] [address] [id number] [address] [place] [address], [place] [address] Jan, 2013 [facility] [address] [id number] [address] [place] [address], [place] [address] Jan, 2013 [facility] [address] [id number] [address] [place] [address], [place] [address] Jan, 2013 [facility] [address] [id number] [address] [place] [address], [place] [address] Jan, 2013 [facility] [address] [id number] [address] [place] [address], [place] [address] Dec, [facility] [address] [id number] [address] [place] [address], [place] [address] Dec, [facility] [address] [id number] [address] [place] [address] Dec, [facility] [address] [id number] [address] [place] [address], [place] [address] Dec, [facility] [address] [id number] [address] [place] [address], [place] [address] Dec, [facility] [address] [id number] [address] [place] [address] Dec, Via [address] [id number] Dec, Via [facility] [id number] Dec, [facility] [address] [id number] [facility] [place] [address] Dec, [facility] [address] [id number] [facility] [place] [address] Dec, [facility] [address] [id number] [address] [place] [address], [place] [address] Dec, [facility] [address] [id number] [address] [place] [address], [place] [address] Dec, [facility] [address] [id number] [address] [place] [address], [place] [address] Nov, [facility] [address] [id number] [address] [place] [address], [place] [address] Nov, [facility] [address] [id number] [address] [place] [address], [place] [address] Nov, [facility] [address] [id number] [address] [place] [address], [place] [address] Nov, [facility] [address] [id number] [address] [place] [address], [place] [address] Nov, [facility] [address] [id number] [address] [place] [address], [place] [address] Nov, [facility] [address] [id number] [address] [place] [address], [place] [address] Nov, [facility] [address] [id number] [address] [place] [address], [place] [address] Nov, [facility] [address] [id number] [address] [place] [address], [place] [address] Nov, [facility] [address] [id number] [address] [place] [address], [place] [address] Nov, [facility] [address] [id number] [facility] [place] [address] Nov, [facility] [address] [id number] [facility] [place] [address] Nov, [facility] [address] [id number] [facility] [place] [address] Nov, [facility] [address] [id number] [address] [place] [address], [place] [address] Oct, [facility] [address] [id number] [address] [place] [address], [place] [address] Oct, [facility] [address] [id number] [address] [place] [address], [place] [address] Oct, [facility] [address] [id number] [address] [place] [address], [place] [address] Oct, [facility] [address] [id number] [address] [place] [address], [place] [address] Oct, [facility] [address] [id number] [address] [place] [address], [place] [address] Oct, [facility] [address] [id number] [address] [place] [address], [place] [address] Oct, [facility] [address] [id number] [address] [place] [address], [place] [address] Oct, [facility] [address] [id number] [address] [place] [address], [place] [address] Oct, [facility] [address] [id number] [address] [place] [address], [place] [address] Oct, [facility] [address] [id number] [address] [place] [address], [place] [address] Oct, [facility] [address] [id number] [address] [place] [address], [place] [address] Oct, [facility] [address] [id number] [address] [place] [address], [place] [address] September, [facility] [address] [id number] [facility] [place] [address] September, [facility] [address] [id number] [facility] [place] [address] September, [facility] [address] [id number] [facility] [place] [address] September, [facility] [address] [id number] [address] [place] [address], [place] [address] Aug, [facility] [address] [id number] [facility] [place] [address] Aug, [facility] [address] [id number] [address] [place] [address], [place] [address] Aug, [facility] [address] [id number] [address] [place] [address], [place] [address] Aug, [facility] [address] [id number] [address] [place] [address], [place] [address] Aug, [facility] [address] [id number] [address] [place] [address], [place] [address] Aug, [facility] [address] [id number] [address] [place] [address], [place] [address] Aug, [facility] [address] [id number] [address] [place] [address], [place] [address] Jul, [facility] [address] [id number] [address] [place] [address], [place] [address] Jul, [facility] [address] [id number] [address] [place] [address], [place] [address] Jul, [facility] [address] [id number] [address] [place] [address], [place] [address] 28 Jul, 2013 [facility] [address] [id number] [address] [place] [address], [place] [address] 19 Jul, 2013 [facility] [address] [id number] [address] [place] [address], [place] [address] Jul, [facility] [address] [id number] [address] [place] [address], [place] [address] 18 Jul, 2013 [facility] [address] [id number] [address] [place] [address], [place] [address] 18 Jul, 2013 [facility] [address] [id number] [address] [place] [address], [place] [address] 18 Jul, 2013 [facility] [address] [id number] [address] [place] [address], [place] [address] 18 Jul, 2013 [facility] [address] [id number] [address] [place] [address], [place] [address] 18 Jul, 2013 [facility] [address] [id number] [address] [place] [address], [place] [address] 18 Jul, 2013 [facility] [address] [id number] [address] [place] [address], [place] [address] 14 Jul, 2013 [facility] [address] [id number] [address] [place] [address], [place] [address] 14 Jul, 2013 [facility] [address] [id number] [address] [place] [address], [place] [address] Jul, [facility] [address] [id number] [address] [place] [address], [place] [address] Jul, [facility] [address] [id number] [address] [place] [address], [place] [address] Jul, [facility] [address] [id number] [address] [place] [address], [place] [address] Jul, [facility] [address] [id number] [address] [place] [address], [place] [address] Jun, [facility] [address] [id number] [address] [place] [address], [place] [address] Jun, [facility] [address] [id number] [address] [place] [address], [place] [address] Jun, [facility] [address] [id number] [address] [place] [address], [place] [address] 15 Jun, 2013 [facility] [address] [id number] [address] [place] [address], [place] [address] 14 Jun, 2013 [facility] [address] [id number] [address] [place] [address], [place] [address] 14 Jun, 2013 [facility] [address] [id number] [address] [place] [address], [place] [address] 14 Jun, 2013 [facility] [address] [id number] [address] [place] [address], [place] [address] 14 Jun, 2013 [facility] [address] [id number] [address] [place] [address], [place] [address] 14 Jun, 2013 [facility] [address] [id number] [address] [place] [address], [place] [address] 14 Jun, 2013 [facility] [address] [id number] [address] [place] [address], [place] [address] 27 May, 2013 [facility] [address] [id number] [address] [place] [address], [place] [address] 27 May, 2013 [facility] [address] [id number] [address] [place] [address], [place] [address] 26 May, 2013 [facility] [address] [id number] [address] [place] [address], [place] [address] 19 May, 2013 [facility] [address] [id number] [address] [place] [address], [place] [address] 19 May, 2013 [facility] [address] [id number] [address] [place] [address], [place] [address] 16 May, 2013 [facility] [address] [id number] [address] [place] [address], [place] [address] 16 May, 2013 [facility] [address] [id number] [address] [place] [address], [place] [address] 16 May, 2013 [facility] [address] [id number] [address] [place] [address] 16 May, 2013 [facility] [address] [id number] [address] [place] [address], [place] [address] 13 May, 2013 [facility] [address] [id number] [address] [place] [address] 13 May, 2013 [facility] [address] [id number] [address] [place] [address], [place] [address] 11 May, 2013 [facility] [address] [id number] [address] [place] [address] 20 Apr, 2013 [facility] [address] [id number] [address] [place] [address], [place] [address] 18 Apr, 2013 [facility] [address] [id number] [address] [place] [address] 18 Apr, 2013 [facility] [address] [id number] [address] [place] [address] Apr, [facility] [address] [id number] [address] [place] [address] Apr, [facility] [address] [id number] [address] [place] [address] 08 Apr, 2013 [facility] [address] [id number] [address] [place] [address] 08 Apr, 2013 [facility] [address] [id number] [address] [place] [address] 07 Apr, 2013 [facility] [address] [id number] [address] [place] [address] 07 Apr, 2013 [facility] [address] [id number] [address] [place] [address] 07 Apr, 2013 [facility] [address] [id number] [address] [place] [address] 07 Apr, 2013 [facility] [address] [id number] [address] [place] [address], [place] [address] 25 Mar, 2013 [facility] [address] [id number] [address] [place] [address], [place] [address] Mar, [facility] [address] [id number] [address] [place] [address], [place] [address] Mar, [facility] [address] [id number] [address] [place] [address], [place] [address] Mar, [facility] [address] [id number] [address] [place] [address], [place] [address] Mar, [facility] [address] [id number] [address] [place] [address], [place] [address] Mar, [facility] [address] [id number] [address] [place] [address], [place] [address] Mar, [facility] [address] [id number] [address] [place] [address], [place] [address] Mar, [facility] [address] [id number] [address] [place] [address], [place] [address] 18 Mar, 2013 [facility] [address] [id number] [address] [place] [address], [place] [address] 15 Mar, 2013 [facility] [address] [id number] [address] [place] [address], [place] [address] 15 Mar, 2013 [facility] [address] [id number] [address] [place] [address], [place] [address] Mar, [facility] [address] [id number] [address] [place] [address], [place] [address] 30 Jan, 2013 [facility] [address] [id number] [address] [place] [address], [place] [address] 25 Jan, 2013 [facility] [address] [id number] [address] [place] [address], [place] [address] 20 Jan, 2013 [facility] [address] [id number] [address] [place] [address], [place] [address] 10 Jan, 2013 [facility] [address] [id number] [address] [place] [address], [place] [address] Dec, [facility] [address] [id number] [facility] [place] [address] Dec, [facility] [address] [id number] [address] [place] [address], [place] [address] Dec, [facility] [address] [id number] [address] [place] [address], [place] [address] Dec, [facility] [address] [id number] [address] [place] [address], [place] [address] Dec, [facility] [address] [id number] [address] [place] [address], [place] [address] Dec, [facility] [address] [id number] [address] [place] [address], [place] [address] Dec, [facility] [address] [id number] [address] [place] [address], [place] [address] Dec, [facility] [address] [id number] [address] [place] [address], [place] [address] Dec, [facility] [address] [id number] [address] [place] [address], [place] [address] Nov, [facility] [address] [id number] [address] [place] [address], [place] [address] Nov, [facility] [address] [id number] [address] [place] [address], [place] [address] Nov, [facility] [address] [id number] [address] [place] [address], [place] [address] Nov, [facility] [address] [id number] [address] [place] [address], [place] [address] Nov, [facility] [address] [id number] [address] [place] [address], [place] [address] Nov, [facility] [address] [id number] [address] [place] [address], [place] [address] Nov, [facility] [address] [id number] [address] [place] [address], [place] [address] Nov, [facility] [address] [id number] [facility] [place] [address] Oct, [facility] [address] [id number] [address] [place] [address], [place] [address] Oct, [facility] [address] [id number] [address] [place] [address], [place] [address] Oct, [facility] [address] [id number] [address] [place] [address], [place] [address] Oct, [facility] [address] [id number] [address] [place] [address], [place] [address] Oct, [facility] [address] [id number] [address] [place] [address], [place] [address] Oct, [facility] [address] [id number] [address] [place] [address], [place] [address] Oct, [facility] [address] [id number] [address] [place] [address], [place] [address] Oct, [facility] [address] [id number] [address] [place] [address], [place] [address] Oct, [facility] [address] [id number] [address] [place] [address], [place] [address] 18 Oct, 2012 [facility] [address] [id number] [address] [place] [address], [place] [address] 17 Oct, 2012 [facility] [address] [id number] [address] [place] [address], [place] [address] 14 Oct, 2012 [facility] [address] [id number] [address] [place] [address], [place] [address] 07 Oct, 2012 [facility] [address] [id number] [address] [place] [address], [place] [address] September, [facility] [address] [id number] [address] [place] [address], [place] [address] September, [facility] [address] [id number] [address] [place] [address], [place] [address] September, [facility] [address] [id number] [address] [place] [address], [place] [address] Aug, [facility] [address] [id number] [address] [place] [address], [place] [address] Aug, [facility] [address] [id number] [address] [place] [address], [place] [address] Aug, [facility] [address] [id number] [address] [place] [address], [place] [address] Aug, [facility] [address] [id number] [address] [place] [address], [place] [address] Aug, [facility] [address] [id number] [address] [place] [address], [place] [address] Aug, [facility] [address] [id number] [address] [place] [address], [place] [address] Aug, [facility] [address] [id number] [address] [place] [address], [place] [address] Jul, [facility] [address] [id number] [address] [place] [address], [place] [address] Jul, [facility] [address] [id number] [address] [place] [address], [place] [address] Jul, [facility] [address] [id number] [address] [place] [address], [place] [address] Jul, [facility] [address] [id number] [address] [place] [address], [place] [address] Jul, [facility] [address] [id number] [address] [place] [address], [place] [address] Jul, [facility] [address] [id number] [address] [place] [address], [place] [address] Jul, [facility] [address] [id number] [address] [place] [address], [place] [address] Jul, [facility] [address] [id number] [address] [place] [address], [place] [address] Jul, [facility] [address] [id number] [address] [place] [address], [place] [address] Jul, [facility] [address] [id number] [address] [place] [address], [place] [address] Jul, [facility] [address] [id number] [address] [place] [address], [place] [address] Jul, [facility] [address] [id number] [address] [place] [address], [place] [address] Jul, [facility] [address] [id number] [address] [place] [address], [place] [address] 24 Jun, 2012 [facility] [address] [id number] [address] [place] [address], [place] [address] Jun, [facility] [address] [id number] [address] [place] [address], [place] [address] Jun, [facility] [address] [id number] [address] [place] [address], [place] [address] 17 Jun, 2012 [facility] [address] [id number] [address] [place] [address], [place] [address] 15 Jun, 2012 [facility] [address] [id number] [address] [place] [address], [place] [address] Jun, [facility] [address] [id number] [address] [place] [address], [place] [address] Jun, [facility] [address] [id number] [address] [place] [address], [place] [address] May, [facility] [address] [id number] [address] [place] [address], [place] [address] May, [facility] [address] [id number] [address] [place] [address], [place] [address] May, [facility] [address] [id number] [address] [place] [address], [place] [address] May, [facility] [address] [id number] [address] [place] [address], [place] [address] May, [facility] [address] [id number] [address] [place] [address], [place] [address] May, [facility] [address] [id number] [address] [place] [address], [place] [address] May, [facility] [address] [id number] [address] [place] [address], [place] [address] May, [facility] [address] [id number] [address] [place] [address], [place] [address] May, [facility] [address] [id number] [address] [place] [address], [place] [address] May, [facility] [address] [id number] [address] [place] [address], [place] [address] Apr, [facility] [address] [id number] [address] [place] [address], [place] [address] Apr, [facility] [address] [id number] [address] [place] [address], [place] [address] Apr, [facility] [address] [id number] [address] [place] [address], [place] [address] Apr, [facility] [address] [id number] [address] [place] [address], [place] [address] Apr, [facility] [address] [id number] [address] [place] [address], [place] [address] Apr, [facility] [address] [id number] [address] [place] [address], [place] [address] Apr, [facility] [address] [id number] [address] [place] [address], [place] [address] Apr, [facility] [address] [id number] [address] [place] [address], [place] [address] Apr, [facility] [address] [id number] [address] [place] [address], [place] [address] Apr, [facility] [address] [id number] [address] [place] [address] Apr, [facility] [address] [id number] [address] [place] [address], [place] [address] Apr, [facility] [address] [id number] [address] [place] [address] Mar, [facility] [address] [id number] [address] [place] [address], [place] [address] Mar, [facility] [address] [id number] [address] [place] [address] Mar, [facility] [address] [id number] [address] [place] [address], [place] [address] Mar, 2011 [facility] [address] [id number] [address] [place] [address] Mar, [facility] [address] [id number] [address] [place] [address] Mar, 2011 [facility] [address] [id number] [address] [place] [address] Mar, [facility] [address] [id number] [address] [place] [address] 30 Mar, 2012 [facility] [address] [id number] [address] [place] [address] Mar, 2011 [facility] [address] [id number] [address] [place] [address] Mar, [facility] [address] [id number] [address] [place] [address] Mar, [facility] [address] [id number] [address] [place] [address] Mar, [facility] [address] [id number] [address] [place] [address], [place] [address] 12 Mar, 2012 [facility] [address] [id number] [address] [place] [address], [place] [address] 12 Mar, 2012 [facility] [address] [id number] [address] [place] [address], [place] [address] 03 Mar, 2012 [facility] [address] [id number] [address] [place] [address], [place] [address] 02 Mar, 2012 [facility] [address] [id number] [address] [place] [address], [place] [address] 25 Jan, 2011 [facility] [address] [id number] [address] [place] [address], [place] [address] 24 Jan, 2012 [facility] [address] [id number] [address] [place] [address], [place] [address] 22 Jan, 2012 [facility] [address] [id number] [address] [place] [address], [place] [address] 22 Jan, 2012 [facility] [address] [id number] [address] [place] [address], [place] [address] 21 Jan, 2012 [facility] [address] [id number] [address] [place] [address], [place] [address] 18 Jan, 2012 [facility] [address] [id number] [address] [place] [address], [place] [address] 14 Jan, 2012 [facility] [address] [id number] [address] [place] [address], [place] [address] 07 Jan, 2012 [facility] [address] [id number] [address] [place] [address], [place] [address] 15 Dec, 2011 [facility] [address] [id number] [address] [place] [address], [place] [address] 10 Dec, 2011 [facility] [address] [id number] [address] [place] [address], [place] [address] 09 Dec, 2011 [facility] [address] [id number] [address] [place] [address], [place] [address] Dec, [facility] [address] [id number] [address] [place] [address], [place] [address] Dec, [facility] [address] [id number] [address] [place] [address], [place] [address] Dec, [facility] [address] [id number] [address] [place] [address], [place] [address] Dec, [facility] [address] [id number] [address] [place] [address], [place] [address] Nov, [facility] [address] [id number] [address] [place] [address], [place] [address] Oct, [facility] [address] [id number] [address] [place] [address], [place] [address] Aug, [facility] [address] [id number] [address] [place] [address], [place] [address] Jul, [facility] [address] [id number] [address] [place] [address], [place] [address] Jul, [facility] [address] [id number] [address] [place] [address], [place] [address] 16 Jul, 2011 [facility] [address] [id number] [address] [place] [address], [place] [address] 14 Jul, 2011 [facility] [address] [id number] [address] [place] [address], [place] [address] Jul, [facility] [address] [id number] [address] [place] [address], [place] [address] Jul, [facility] [address] [id number] [address] [place] [address], [place] [address] Jul, [facility] [address] [id number] [address] [place] [address], [place] [address] 15 Jul, 2011 [facility] [address] [id number] [address] [place] [address], [place] [address] 13 Jul, 2011 [facility] [address] [id number] [address] [place] [address], [place] [address] 03 Jul, 2011 [facility] [address] [id number] [address] [place] [address], [place] [address] Jul, [facility] [address] [id number] [address] [place] [address], [place] [address] Jun, [facility] [address] [id number] [address] [place] [address], [place] [address] Jun, [facility] [address] [id number] [address] [place] [address], [place] [address] Jun, [facility] [address] [id number] [address] [place] [address], [place] [address] Jun, [facility] [address] [id number] [address] [place] [address], [place] [address] Jun, [facility] [address] [id number] [address] [place] [address], [place] [address] Jun, [facility] [address] [id number] [address] [place] [address], [place] [address] Jun, [facility] [address] [id number] [address] [place] [address], [place] [address] May, [facility] [address] [id number] [address] [place] [address], [place] [address] May, [facility] [address] [id number] [address] [place] [address], [place] [address] May, [facility] [address] [id number] [address] [place] [address], [place] [address] May, [facility] [address] [id number] [address] [place] [address], [place] [address] May, [facility] [address] [id number] [address] [place] [address], [place] [address] May, [facility] [address] [id number] [address] [place] [address], [place] [address] May, [facility] [address] [id number] [address] [place] [address] May, [facility] [address] [id number] [address] [place] [address] May, [facility] [address] [id number] [address] [place] [address] May, [facility] [address] [id number] [address] [place] [address] Apr, [facility] [address] [id number] [address] [place] [address] Apr, [facility] [address] [id number] [address] [place] [address] Apr, [facility] [address] [id number] [address] [place] [address] Apr, [facility] [address] [id number] [address] [place] [address] Mar, [facility] [address] [id number] [address] [place] [address] Mar, [facility] [address] [id number] [address] [place] [address] Mar, [facility] [address] [id number] [address] [place] [address] Mar, IMMUNIZATIONS No Known Immunizations SOCIAL HISTORY [...] [facility] 03[facility]/16 Hospitalization History [facility] for kidney stones/hypertension 0 12/2017
--- OUTSIDE RECORDS SUMMARY | 2020-01-03 18:04 | XMS REPORT ---
Author Author Pattie VIEIRA Organization [facility] Address [address] [place] [address] Care Team Providers Care Tar Boiler Name Role Phone REYNALDO VIEIRA Unavailable PROBLEMS Type Condition ICD9-CM Code [id number] Code Onset Dates Condition S tatus SNOMED Code Problem Major depressive disorder in partial remission F32 .4 Active 80431942 Problem FRANCIS (generalized anxiety disorder) F41.1 Active 78601648 Problem Conversion disorder (or hysterical neurosis, conversion ty pe) F44.9 Active 68361696 Problem Thoracic disc herniation M51.24 Activ e 471752450 Problem Slow transit constipation K59.01 Acti ve 09569993 Problem Constipation, unspecified constipation type K59.00 Active 53133759 Problem Mild episode of recurrent major depressive disorder F33.0 Active 816782874 Problem High blood pressure I10 Active 35011778 Problem Paroxysmal tachycardia I47.9 Active 48727455 Problem Nonadherence to medication Z91.14 Act vivian 804868935 Problem Seizure disorder G40.909 Active 128 601177 Problem Restless leg syndrome G25.81 Active 79234402 Problem Other chronic pain G89.29 Active 8 4630749 Problem Mild intermittent asthma without complication J45. 20 Active 602267404 Problem Obesity (BMI 30.0-34.9) E66.9 Active [id number] ALLERGIES No Information ENCOUNTERS Encounter Location Date Diagnosis [facility] [address] [facility] [id number] [address] [place] [phone] September, [facility] [address] [facility] [id number] [address] [place] [phone] September, [facility] [address] [facility] [id number] [address] [place] [phone] September, [facility] [address] [facility] [id number] [address] [place] [address] Aug, [facility] [address] [id number] [place] [id number] Aug, Dental examination Z01.20 [facility] [address] [id number] [address] [place] [id number] 15 Aug, 2019 Dental examination Z01.20 an [address]ies K02.9 [facility] [address] [id number] [address] [place] [id number] Aug, [facility] [address] [id number] [address] [place] [phone] Aug, [facility] [address] [facility] [id number] [address] [place] [phone] Aug, Other chronic pain G89.29 an d Back muscle spasm M62.830 [facility] [address] [facility] [id number] [address] [place] [phone] Aug, [facility] [address] [facility] [id number] [address] [place] [address] Aug, Major depressive disorder in partial remission F32.4 ; FRANCIS (generalized anxiety disorder) F41.1 ; Restless leg syndrome G25.81 and Nonadherence to medication Z91.14 [facility] [address] [facility] [id number] [address] [place] [phone] Aug, [facility] [address] [facility] [id number] [address] [place] [phone] Jul, [facility] [address] [facility] [id number] [address] [place] [phone] Jul, [facility] [address] [facility] [id number] [address] [place] [phone] Jul, Major depressive disorder in partial remission F32.4 ; FRANCIS (generalized anxiety disorder) F41.1 ; Restless leg syndrome G25.81 and High blood pressure I10 [facility] [address] [facility] [id number] [address] [place] [phone] 17 Jul, 2019 [facility] [address] [id number] [address] [place] [phone] Jul, [facility] [address] [id number] [address] [place] [phone] Jun, [facility] [address] [id number] [address] [place] [phone] May, [facility] [address] [id number] [address] [place] [address] Apr, [facility] [address] [id number] [address] [place] [phone] Apr, [facility] [address] [id number] [address] [place] [phone] Mar, [facility] [address] [facility] [id number] [address] [place] [phone] Mar, Major depressive disorder in partial remission F32.4 ; FRANCIS (generalized anxiety disorder) F41.1 and Restless leg syndrome G25.81 [facility] [address] [id number] [address] [place] [address] Mar, Obesity (BMI 30.0-34.9) E66. 9 [facility] [address] [id number] [address] [place] [address] Jan, [facility] [address] [facility] [id number] [address] [place] [phone] Jan, Burn T30.0 [facility] [address] [id number] [address] [place] [phone] Dec, [facility] [address] [facility] [id number] [address] [place] [phone] Nov, [facility] [address] [facility] [id number] [address] [place] [address] Nov, [facility] [address] [id number] [address] [place] [id number] Nov, Dental examination Z01.20 [facility] [address] [facility] [id number] [address] [place] [phone] September, [facility] [id number] [place] [id number] September, Decay, teeth K02.9 and Denta l examination Z01.20 [facility] [address] [facility] [id number] [address] [place] [id number] September, Dental examination Z01.20 [facility] [address] [facility] [id number] [place] [id number] September, FRANCIS (generalized anxiety dis order) F41.1 ; Major depressive disorder in partial remission F32.4 and Restless leg syndrome G25.81 [place] [address] [address] Aug, [place] [address] [address] Jul, [place] [address] [address] Jul, Encounter to discuss test re sults Z71.2 [place] [address] [address] Jul, Pelvic pain R10.2 ; Screenin g for breast cancer Z12.31 and Obesity (BMI 30.0-34.9) E66.9 [place] [address] [place] [id number] [address] [place] [phone] Jul, Mild intermittent asthma wit hout complication J45.20 [place] [address] [place] [id number] [place] [phone] Jul, Major depressive disorder in partial remission F32.4 and FRANCIS (generalized anxiety disorder) F41.1 [place] [address] [place] [id number] [address] [place] [address] Jul, [place] [address] [place] [address] Jun, [facility] [address] [id number] [address] [place] [address] May, Major depressive disorder in partial remission F32.4 ; FRANCIS (generalized anxiety disorder) F41.1 and Restless leg syndrome G25.81 [facility] [address] [id number] [address] [place] [phone] Apr, [facility] [address] [id number] [address] [place] [phone] Mar, [facility] [address] [id number] [address] [place] [address] Jan, Pain in thoracic spine M54.6 and Other chronic pain G89.29 [facility] [address] [id number] [address] [place] [phone] Jan, [facility] [address] [id number] [address] [place] [address] Jan, Mild episode of recurrent ma saray depressive disorder F33.0 ; FRANCIS (generalized anxiety disorder) F41.1 and Restless leg syndrome G25.81 [facility] [address] [id number] [address] [place] [phone] Dec, [facility] [address] [id number] [address] [place] [phone] Dec, Hospital discharge follow-up Z09 [facility] [address] [id number] [address] [place] [phone] Nov, [facility] [address] [id number] [address] [place] [phone] Nov, [facility] [address] [id number] [address] [place] [address] September, [facility] [address] [id number] [address] [place] [address] September, [facility] [address] [id number] [address] [place] [address] September, Major depressive disorder in partial remission F32.4 ; FRANCIS (generalized anxiety disorder) F41.1 and Restless leg syndrome G25.81 [facility] [address] [facility] [id number] [address] [place] [phone] September, [facility] [address] [facility] [id number] [address] [place] [phone] Jul, [facility] [address] [facility] [id number] [address] [place] [phone] Jul, Dorsalgia, unspecified M54.9 [place] [address] [facility] [id number] [address] [place] [address] Jul, Mild episode of recurrent ma saray depressive disorder F33.0 and FRANCIS (generalized anxiety disorder) F41.1 [place] [address] [place] [id number] [address] [place] [phone] May, [facility] [address] [facility] [id number] [address] [place] [address] May, Dysuria R30.0 and Acute cyst itis with hematuria N30.01 [place] [address] [facility] [id number] [address] [place] [phone] Apr, [facility] [address] [facility] [id number] [address] [place] [address] Apr, Major depressive disorder in partial remission F32.4 and FRANCIS (generalized anxiety disorder) F41.1 [place] [address] [facility] [id number] [address] [place] [phone] Mar, Paroxysmal tachycardia I47.9 [place] [address] [facility] [id number] [address] [place] [address] Mar, Paroxysmal tachycardia I47.9 and Pain of left lower extremity M79.605 [place] [address] [place] [id number] [address] [place] [address] Mar, FRANCIS (generalized anxiety dis order) F41.1 and Major depressive disorder in partial remission F32.4 [facility] [address] [facility] [id number] [address] [place] [phone] Jan, [facility] [address] [facility] [id number] [address] [place] [phone] Jan, [facility] [address] [facility] [id number] [place] [phone] Jan, [facility] [address] [facility] [id number] [address] [place] [address] Dec, Constipation, unspecified co nstipation type K59.00 [place] [address] [facility] [id number] [place] [phone] Dec, [place] [address] [place] [id number] [place] [address] Nov, [place] [address] [place] [id number] [place] [phone] Nov, Major depressive disorder in partial remission F32.4 and FRANCIS (generalized anxiety disorder) F41.1 [facility] [address] [place] [id number] [address] [place] [phone] Oct, Abdominal pain R10.9 and Slo w transit constipation K59.01 [place] [address] [place] [id number] [place] [address] Aug, Major depressive disorder in partial remission F32.4 ; FRANCIS (generalized anxiety disorder) F41.1 ; Conversion disorder (or hysterical neurosis, conversion type) F44.9 ; Dorsalgia, unspecified M54.9 and Long-term use of high-risk medication Z79.899 [facility] [address] [place] [id number] [address] [place] [phone] Aug, [facility] [address] [place] [id number] [address] [place] [phone] Jul, Paroxysmal tachycardia I47.9 [facility] [address] [id number] [address] [place] [phone] Jul, Paroxysmal tachycardia I47.9 [facility] [address] [id number] [address] [place] [phone] Jun, [facility] [address] [id number] [address] [place] [phone] Jun, Major depressive disorder in partial remission F32.4 ; FRANCIS (generalized anxiety disorder) F41.1 and Conversion disorder (or hysterical neurosis, conversion type) F44.9 [facility] [address] [id number] [address] [place] [phone] May, Pelvic pain R10.2 [facility] [address] [id number] [address] [place] [phone] Apr, Gastroenteritis K52.9 [facility] [address] [id number] [address] [place] [address] Apr, Blood in urine R31.9 and Acu te cystitis with hematuria N30.01 [facility] [address] [id number] [address] [place] [address] 17 Apr, 2016 Major depressive disorder in partial remission F32.4 ; FRANCIS (generalized anxiety disorder) F41.1 and Conversion disorder (or hysterical neurosis, conversion type) F44.9 [facility] [address] [id number] [address] [place] [address] Apr, [facility] [address] [id number] [address] [place] [address] Apr, Abnormal mammogram R92.8 [place] [address] [id number] [address] [place] [address] Mar, [facility] [address] [id number] [address] [place] [address] Mar, Gastroenteritis K52.9 and Se izure disorder G40.909 [place] [address] [id number] [address] [place] [address] Dec, [facility] [address] [id number] [address] [place] [address] Dec, Other headache syndrome G44. 89 [facility] [address] [id number] [address] [place] [address] Dec, [facility] [address] [id number] [address] [place] [address] Dec, Thoracic disc herniation M51 .24 [facility] [address] [id number] [address] [place] [address] Dec, [facility] [address] [id number] [address] [place] [phone] Nov, Major depressive disorder in partial remission F32.4 and FRANCIS (generalized anxiety disorder) F41.1 [facility] [address] [id number] [address] [place] [address] Nov, [facility] [address] [id number] [address] [place] [address] Nov, Dorsalgia, unspecified M54.9 [facility] [address] [id number] [address] [place] [phone] Oct, [facility] [address] [id number] [address] [place] [address] September, [facility] [address] [id number] [address] [place] [address] Aug, [facility] [address] [id number] [address] [place] [address] Aug, Major depressive disorder in partial remission F32.4 and FRANCIS (generalized anxiety disorder) F41.1 [facility] [address] [id number] [address] [place] [id number] Aug, [facility] [address] [id number] [address] [place] [address] Jul, Abnormal mammogram R92.8 [facility] [address] [id number] [address] [place] [address] Jul, [facility] [address] [id number] [address] [place] [phone] Jul, [facility] [address] [id number] [address] [place] [id number] Jul, [facility] [address] [id number] [address] [place] [phone] Jul, [facility] [address] [id number] [address] [place] [address] Jul, [facility] [address] [id number] [address] [place] [address] Jul, [facility] [address] [id number] [address] [place] [address] Jun, Major depressive disorder in partial remission F32.4 and FRANCIS (generalized anxiety disorder) F41.1 [facility] [address] [id number] [address] [place] [address] Jun, [facility] [address] [id number] [address] [place] [address] May, [facility] [address] [facility] [id number] [address] [place] [address] Apr, [facility] [address] [id number] [address] [place] [id number] Mar, Major depressive disorder, r ecurrent episode, moderate F33.1 ; PTSD (post-traumatic stress disorder) F43.10 and FRANCIS (generalized anxiety disorder) F41.1 [facility] [address] [id number] [address] [place] [address] Mar, [facility] [address] [id number] [address] [place] [id number] Mar, [facility] [address] [id number] [address] [place] [phone] 07 Mar, 2015 [facility] [address] [id number] [address] [place] [id number] 07 Mar, 2015 [facility] [address] [id number] [address] [place] [id number] 23 Jan, 2015 [facility] [address] [id number] [address] [place] [id number] 15 Jan, 2015 [facility] [address] [id number] [address] [place] [address] 15 Jan, 2015 [facility] [address] [id number] [address] [place] [phone] 14 Jan, 2015 Thoracic disc herniation 722 .11 [facility] [address] [id number] [address] [place] [phone] Dec, [facility] [address] [id number] [address] [place] [address] Dec, [facility] [address] [id number] [address] [place] [address] Dec, [facility] [address] [id number] [address] [place] [id number] Nov, [facility] [address] [id number] [address] [place] [address] Nov, Generalized anxiety disorder 300.02 ; Posttraumatic stress disorder 309.81 and Major depressive disorder, recurrent episode, moderate 296.32 [facility] [address] [id number] [address] [place] [id number] Nov, [facility] [address] [id number] [address] [place] [address] Nov, [facility] [address] [id number] [address] [place] [phone] Oct, [facility] [address] [id number] [address] [place] [id number] Oct, [facility] [address] [id number] [address] [address], [place] [address] 04 Oct, 2014 [facility] [address] [id number] [address] [place] [address], [place] [address] September, [facility] [address] [id number] [address] [place] [address], [place] [address] September, [facility] [address] [id number] [address] [place] [address], [place] [address] Aug, [facility] [address] [id number] [address] [address], [place] [address] Aug, [facility] [address] [id number] [address] [place] [address], [place] [address] Jul, [facility] [address] [id number] [address] [address], [place] [address] Jul, [facility] [address] [id number] [address] [address], [place] [address] 17 Jul, 2014 [facility] [address] [id number] [address] [address], [place] [address] 17 Jul, 2014 [facility] [address] [id number] [address] [address], [place] [address] Jul, [facility] [address] [id number] [address] [address], [place] [address] 16 Jul, 2014 [facility] [address] [id number] [address] [address], [place] [address] 19 Jul, 2014 [facility] [address] [id number] [address] [address], [place] [address] 19 Jul, 2014 [facility] [address] [id number] [address] [address], [place] [address] Jul, [facility] [address] [id number] [address] [address], [place] [address] 13 Jul, 2014 [facility] [address] [id number] [address] [address], [place] [address] Jun, [facility] [address] [id number] [address] [address], [place] [address] Jun, [facility] [address] [id number] [address] [address], [place] [address] Jun, [facility] [address] [id number] [address] [address], [place] [address] May, [facility] [address] [id number] [address] [address], [place] [address] Apr, [facility] [address] [id number] [address] [address], [place] [address] Apr, [facility] [address] [id number] [address] [address], [place] [address] Apr, [facility] [address] [id number] [address] [place] [address], [place] [address] Apr, [facility] [address] [id number] [address] [address], [place] [address] Apr, [facility] [address] [id number] [address] [place] [address], [place] [address] Apr, [facility] [address] [id number] [address] [address], [place] [address] Apr, [facility] [address] [id number] [address] [place] [address] Apr, [facility] [address] [id number] [address] [place] [address] Mar, [facility] [address] [id number] [address] [address], [place] [address] Mar, [facility] [address] [id number] [address] [place] [address] Mar, [facility] [address] [id number] [address] [address], [place] [address] Mar, [facility] [address] [id number] [address] [address], [place] [address] 24 Mar, 2014 [facility] [address] [id number] [address] [address], [place] [address] 24 Mar, 2014 [facility] [address] [id number] [address] [address], [place] [address] 24 Mar, 2014 [facility] [address] [id number] [address] [place] [address], [place] [address] Mar, [facility] [address] [id number] [address] [address], [place] [address] 23 Mar, 2014 [facility] [address] [id number] [address] [address], [place] [address] Mar, [facility] [address] [id number] [address] [address], [place] [address] 17 Mar, 2014 [facility] [address] [id number] [address] [place] [address], [place] [address] Mar, [facility] [address] [id number] [address] [address], [place] [address] 14 Mar, 2014 [facility] [address] [id number] [address] [address], [place] [address] 07 Mar, 2014 [facility] [address] [id number] [address] [address], [place] [address] 07 Mar, 2014 [facility] [address] [id number] [address] [address], [place] [address] 06 Mar, 2014 [facility] [address] [id number] [address] [address], [place] [address] 06 Mar, 2014 [facility] [address] [id number] [address] [address], [place] [address] 19 Jan, 2013 [facility] [address] [id number] [address] [address], [place] [address] 19 Jan, 2013 [facility] [address] [id number] [address] [address], [place] [address] 09 Jan, 2013 [facility] [address] [id number] [address] [address], [place] [address] 09 Sep, 2013 [facility] [address] [id number] [address] [address], [place] [address] 05 Sep, 2013 [facility] [address] [id number] [address] [address], [place] [address] 05 Sep, 2013 [facility] [address] [id number] [address] [address], [place] [address] 05 Sep, 2013 [facility] [address] [id number] [address] [address], [place] [address] 05 Sep, 2013 [facility] [address] [id number] [address] [address], [place] [address] 03 Jan, 2013 [facility] [address] [id number] [address] [address], [place] [address] Jan, 2013 [facility] [address] [id number] [address] [address], [place] [address] Jan, 2013 [facility] [address] [id number] [address] [address], [place] [address] Jan, 2013 [facility] [address] [id number] [address] [address], [place] [address] Jan, 2013 [facility] [address] [id number] [address] [address], [place] [address] Dec, 2013 [facility] [address] [id number] [address] [address], [place] [address] Dec, 2013 [facility] [address] [id number] [address] [address], [place] [address] Dec, [facility] [address] [id number] [address] [address], [place] [address] Dec, [facility] [address] [id number] [address] [address], [place] [address] Dec, 2013 [facility] [address] [id number] [address] [address], [place] [address] Dec, [facility] [id number] Dec, [facility] [id number] Dec, [facility] [address] [id number] [address] [address], [place] [address] Dec, [facility] [address] [id number] [address] [address], [place] [address] Dec, [facility] [address] [id number] [address] [address], [place] [address] Dec, [facility] [address] [id number] [address] [address], [place] [address] Dec, [facility] [address] [id number] [address] [address], [place] [address] Nov, [facility] [address] [id number] [address] [address], [place] [address] Nov, [facility] [address] [id number] [address] [address], [place] [address] Nov, [facility] [address] [id number] [address] [address], [place] [address] Nov, [facility] [address] [id number] [address] [address], [place] [address] Nov, [facility] [address] [id number] [address] [address], [place] [address] Nov, [facility] [address] [id number] [address] [place] [address], [place] [address] Nov, [facility] [address] [id number] [address] [place] [address], [place] [address] Nov, [facility] [address] [id number] [address] [place] [address], [place] [address] Nov, [facility] [address] [id number] [address] [place] [address], [place] [address] Nov, [facility] [address] [id number] [facility] [place] [address] Nov, [facility] [address] [id number] [facility] [place] [address] Nov, [facility] [address] [id number] [facility] [place] [address] Nov, [facility] [address] [id number] [address] [place] [address], [place] [address] Oct, [facility] [address] [id number] [address] [place] [address], [place] [address] Oct, [facility] [address] [id number] [address] [place] [address], [place] [address] Oct, [facility] [address] [id number] [address] [place] [address], [place] [address] Oct, [facility] [address] [id number] [address] [place] [address], [place] [address] Oct, [facility] [address] [id number] [address] [place] [address], [place] [address] Oct, [facility] [address] [id number] [address] [place] [address], [place] [address] Oct, [facility] [address] [id number] [address] [place] [address], [place] [address] Oct, [facility] [address] [id number] [address] [place] [address], [place] [address] Oct, [facility] [address] [id number] [address] [place] [address], [place] [address] Oct, [facility] [address] [id number] [address] [place] [address], [place] [address] Oct, [facility] [address] [id number] [address] [address], [place] [address] Oct, [facility] [address] [id number] [facility] [place] [address] September, [facility] [address] [id number] [facility] [place] [address] September, [facility] [address] [id number] [facility] [place] [address] September, [facility] [address] [id number] [address] [place] [address], [place] [address] September, [facility] [address] [id number] [address] [place] [address], [place] [address] Aug, [facility] [address] [id number] [address] [place] [address], [place] [address] Aug, [facility] [address] [id number] [address] [place] [address], [place] [address] Aug, [facility] [address] [id number] [address] [address], [place] [address] Aug, [facility] [address] [id number] [address] [place] [address], [place] [address] Aug, [facility] [address] [id number] [address] [place] [address], [place] [address] Aug, [facility] [address] [id number] [address] [place] [address], [place] [address] Aug, [facility] [address] [id number] [address] [address], [place] [address] Jul, [facility] [address] [id number] [address] [place] [address], [place] [address] Jul, [facility] [address] [id number] [address] [address], [place] [address] Jul, [facility] [address] [id number] [address] [place] [address], [place] [address] Jul, [facility] [address] [id number] [address] [place] [address], [place] [address] Jul, [facility] [address] [id number] [address] [place] [address], [place] [address] Jul, [facility] [address] [id number] [address] [place] [address], [place] [address] 18 Jul, 2013 [facility] [address] [id number] [address] [place] [address], [place] [address] 18 Jul, 2013 [facility] [address] [id number] [address] [place] [address], [place] [address] Jul, [facility] [address] [id number] [address] [place] [address], [place] [address] Jul, [facility] [address] [id number] [address] [place] [address], [place] [address] Jul, [facility] [address] [id number] [address] [address], [place] [address] 18 Jul, 2013 [facility] [address] [id number] [address] [place] [address], [place] [address] 14 Jul, 2013 [facility] [address] [id number] [address] [place] [address], [place] [address] 14 Jul, 2013 [facility] [address] [id number] [address] [place] [address], [place] [address] Jul, [facility] [address] [id number] [address] [place] [address], [place] [address] Jul, [facility] [address] [id number] [address] [place] [address], [place] [address] Jul, [facility] [address] [id number] [address] [place] [address], [place] [address] Jul, [facility] [address] [id number] [address] [place] [address], [place] [address] Jun, [facility] [address] [id number] [address] [place] [address], [place] [address] Jun, [facility] [address] [id number] [address] [address], [place] [address] 15 Jun, 2013 [facility] [address] [id number] [address] [place] [address], [place] [address] 15 Jun, 2013 [facility] [address] [id number] [address] [address], [place] [address] 14 Jun, 2013 [facility] [address] [id number] [address] [place] [address], [place] [address] 14 Jun, 2013 [facility] [address] [id number] [address] [place] [address], [place] [address] 14 Jun, 2013 [facility] [address] [id number] [address] [place] [address], [place] [address] 14 Jun, 2013 [facility] [address] [id number] [address] [place] [address], [place] [address] 14 Jun, 2013 [facility] [address] [id number] [address] [place] [address], [place] [address] 14 Jun, 2013 [facility] [address] [id number] [address] [address], [place] [address] 27 May, 2013 [facility] [address] [id number] [address] [place] [address], [place] [address] 27 May, 2013 [facility] [address] [id number] [address] [place] [address], [place] [address] 26 May, 2013 [facility] [address] [id number] [address] [address], [place] [address] 19 May, 2013 [facility] [address] [id number] [address] [place] [address], [place] [address] 19 May, 2013 [facility] [address] [id number] [address] [address], [place] [address] 16 May, 2013 [facility] [address] [id number] [address] [place] [address], [place] [address] 16 May, 2013 [facility] [address] [id number] [address] [address], [place] [address] 16 May, 2013 [facility] [address] [id number] [address] [address], [place] [address] 16 May, 2013 [facility] [address] [id number] [address] [address], [place] [address] 13 May, 2013 [facility] [address] [id number] [address] [address], [place] [address] 13 May, 2013 [facility] [address] [id number] [address] [place] [address], [place] [address] 11 May, 2013 [facility] [address] [id number] [address] [address], [place] [address] 20 Apr, 2013 [facility] [address] [id number] [address] [address], [place] [address] 18 Apr, 2013 [facility] [address] [id number] [address] [address], [place] [address] 18 Apr, 2013 [facility] [address] [id number] [address] [place] [address] Apr, [facility] [address] [id number] [address] [place] [address], [place] [address] Apr, [facility] [address] [id number] [address] [place] [address] 08 Apr, 2013 [facility] [address] [id number] [address] [place] [address] 08 Apr, 2013 [facility] [address] [id number] [address] [place] [address] 07 Apr, 2013 [facility] [address] [id number] [address] [place] [address] Apr, [facility] [address] [id number] [address] [place] [address] 07 Apr, 2013 [facility] [address] [id number] [address] [place] [address] 07 Apr, 2013 [facility] [address] [id number] [address] [place] [address] Mar, [facility] [address] [id number] [address] [place] [address], [place] [address] Mar, [facility] [address] [id number] [address] [place] [address], [place] [address] Mar, [facility] [address] [id number] [address] [address], [place] [address] Mar, [facility] [address] [id number] [address] [address], [place] [address] Mar, [facility] [address] [id number] [address] [address], [place] [address] Mar, [facility] [address] [id number] [address] [address], [place] [address] Mar, [facility] [address] [id number] [address] [address], [place] [address] Mar, [facility] [address] [id number] [address] [address], [place] [address] 18 Mar, 2013 [facility] [address] [id number] [address] [address], [place] [address] 15 Mar, 2013 [facility] [address] [id number] [address] [address], [place] [address] 15 Mar, 2013 [facility] [address] [id number] [address] [place] [address] Mar, [facility] [address] [id number] [address] [place] [address] 30 Jan, 2013 [facility] [address] [id number] [address] [address], [place] [address] 25 Jan, 2012 [facility] [address] [id number] [address] [address], [place] [address] 20 Jan, 2012 [facility] [address] [id number] [address] [place] [address], [place] [address] 10 Jan, 2012 [facility] [address] [id number] [facility] [place] [address] Dec, [facility] [address] [id number] [facility] [place] [address] Dec, [facility] [address] [id number] [facility] [place] [address] Dec, [facility] [address] [id number] [address] [place] [address], [place] [address] Dec, [facility] [address] [id number] [address] [place] [address], [place] [address] Dec, [facility] [address] [id number] [address] [place] [address], [place] [address] Dec, [facility] [address] [id number] [address] [address], [place] [address] Dec, [facility] [address] [id number] [address] [place] [address], [place] [address] Dec, [facility] [address] [id number] [address] [place] [address], [place] [address] Dec, [facility] [address] [id number] [address] [place] [address], [place] [address] Nov, [facility] [address] [id number] [address] [place] [address], [place] [address] Nov, [facility] [address] [id number] [address] [place] [address], [place] [address] Nov, [facility] [address] [id number] [address] [address], [place] [address] Nov, [facility] [address] [id number] [address] [address], [place] [address] Nov, [facility] [address] [id number] [address] [address], [place] [address] Nov, [facility] [address] [id number] [address] [address], [place] [address] Nov, [facility] [address] [id number] [facility] [place] [address] Nov, [facility] [address] [id number] [facility] [place] [address] Oct, [facility] [address] [id number] [address] [address], [place] [address] Oct, [facility] [address] [id number] [address] [place] [address], [place] [address] Oct, [facility] [address] [id number] [address] [address], [place] [address] Oct, [facility] [address] [id number] [address] [address], [place] [address] Oct, [facility] [address] [id number] [address] [address], [place] [address] Oct, [facility] [address] [id number] [address] [place] [address], [place] [address] Oct, [facility] [address] [id number] [address] [address], [place] [address] Oct, [facility] [address] [id number] [address] [address], [place] [address] Oct, [facility] [address] [id number] [address] [address], [place] [address] 18 Oct, 2012 [facility] [address] [id number] [address] [address], [place] [address] 17 Oct, 2012 [facility] [address] [id number] [address] [address], [place] [address] 14 Oct, 2012 [facility] [address] [id number] [address] [address], [place] [address] 07 Oct, 2012 [facility] [address] [id number] [address] [address], [place] [address] September, [facility] [address] [id number] [address] [address], [place] [address] September, [facility] [address] [id number] [address] [address], [place] [address] September, [facility] [address] [id number] [address] [address], [place] [address] Aug, [facility] [address] [id number] [address] [address], [place] [address] Aug, [facility] [address] [id number] [address] [address], [place] [address] Aug, [facility] [address] [id number] [address] [address], [place] [address] Aug, [facility] [address] [id number] [address] [address], [place] [address] Aug, [facility] [address] [id number] [address] [address], [place] [address] Aug, [facility] [address] [id number] [address] [address], [place] [address] Aug, [facility] [address] [id number] [address] [address], [place] [address] Jul, [facility] [address] [id number] [address] [address], [place] [address] Jul, [facility] [address] [id number] [address] [address], [place] [address] Jul, [facility] [address] [id number] [address] [address], [place] [address] Jul, [facility] [address] [id number] [address] [address], [place] [address] Jul, [facility] [address] [id number] [address] [address], [place] [address] Jul, [facility] [address] [id number] [address] [address], [place] [address] Jul, [facility] [address] [id number] [address] [place] [address], [place] [address] Jul, [facility] [address] [id number] [address] [address], [place] [address] Jul, [facility] [address] [id number] [address] [address], [place] [address] Jul, [facility] [address] [id number] [address] [address], [place] [address] Jul, [facility] [address] [id number] [address] [address], [place] [address] Jul, [facility] [address] [id number] [address] [address], [place] [address] Jul, [facility] [address] [id number] [address] [address], [place] [address] Jun, [facility] [address] [id number] [address] [address], [place] [address] Jun, [facility] [address] [id number] [address] [place] [address], [place] [address] Jun, [facility] [address] [id number] [address] [address], [place] [address] Jun, [facility] [address] [id number] [address] [address], [place] [address] Jun, [facility] [address] [id number] [address] [address], [place] [address] Jun, [facility] [address] [id number] [address] [address], [place] [address] Jun, [facility] [address] [id number] [address] [address], [place] [address] May, [facility] [address] [id number] [address] [address], [place] [address] May, [facility] [address] [id number] [address] [address], [place] [address] May, [facility] [address] [id number] [address] [address], [place] [address] May, [facility] [address] [id number] [address] [address], [place] [address] May, [facility] [address] [id number] [address] [address], [place] [address] May, [facility] [address] [id number] [address] [address], [place] [address] May, [facility] [address] [id number] [address] [address], [place] [address] May, [facility] [address] [id number] [address] [address], [place] [address] May, [facility] [address] [id number] [address] [address], [place] [address] May, [facility] [address] [id number] [address] [address], [place] [address] Apr, [facility] [address] [id number] [address] [address], [place] [address] Apr, [facility] [address] [id number] [address] [address], [place] [address] Apr, [facility] [address] [id number] [address] [address], [place] [address] Apr, [facility] [address] [id number] [address] [address], [place] [address] Apr, [facility] [address] [id number] [address] [address], [place] [address] Apr, [facility] [address] [id number] [address] [address], [place] [address] Apr, [facility] [address] [id number] [address] [address], [place] [address] Apr, [facility] [address] [id number] [address] [address], [place] [address] Apr, [facility] [address] [id number] [address] [address], [place] [address] Apr, [facility] [address] [id number] [address] [address], [place] [address] Apr, [facility] [address] [id number] [address] [address], [place] [address] Apr, [facility] [address] [id number] [address] [address], [place] [address] Mar, [facility] [address] [id number] [address] [address], [place] [address] Mar, [facility] [address] [id number] [address] [address], [place] [address] Mar, [facility] [address] [id number] [address] [address], [place] [address] Mar, [facility] [address] [id number] [address] [place] [address], [place] [address] Mar, [facility] [address] [id number] [address] [place] [address], [place] [address] Mar, [facility] [address] [id number] [address] [place] [address], [place] [address] Mar, [facility] [address] [id number] [address] [address], [place] [address] 30 Mar, 2012 [facility] [address] [id number] [address] [address], [place] [address] Mar, [facility] [address] [id number] [address] [address], [place] [address] Mar, [facility] [address] [id number] [address] [address], [place] [address] 16 Mar, 2012 [facility] [address] [id number] [address] [place] [address] 16 Mar, 2012 [facility] [address] [id number] [address] [address], [place] [address] 12 Mar, 2012 [facility] [address] [id number] [address] [address], [place] [address] 12 Mar, 2012 [facility] [address] [id number] [address] [address], [place] [address] 03 Mar, 2012 [facility] [address] [id number] [address] [address], [place] [address] 02 Mar, 2012 [facility] [address] [id number] [address] [address], [place] [address] 25 Jan, 2012 [facility] [address] [id number] [address] [address], [place] [address] 24 Jan, 2012 [facility] [address] [id number] [address] [address], [place] [address] 22 Jan, 2012 [facility] [address] [id number] [address] [address], [place] [address] 22 Jan, 2012 [facility] [address] [id number] [address] [address], [place] [address] 21 Jan, 2012 [facility] [address] [id number] [address] [place] [address], [place] [address] 18 Jan, 2012 [facility] [address] [id number] [address] [place] [address], [place] [address] 14 Jan, 2012 [facility] [address] [id number] [address] [place] [address], [place] [address] 07 Jan, 2012 [facility] [address] [id number] [address] [address], [place] [address] 15 Dec, 2011 [facility] [address] [id number] [address] [address], [place] [address] 10 Dec, 2011 [facility] [address] [id number] [address] [address], [place] [address] 09 Dec, 2011 [facility] [address] [id number] [address] [place] [address], [place] [address] Dec, [facility] [address] [id number] [address] [place] [address], [place] [address] Dec, [facility] [address] [id number] [address] [place] [address], [place] [address] Dec, [facility] [address] [id number] [address] [address], [place] [address] Dec, [facility] [address] [id number] [address] [place] [address], [place] [address] Nov, [facility] [address] [id number] [address] [place] [address], [place] [address] Oct, [facility] [address] [id number] [address] [place] [address], [place] [address] Aug, [facility] [address] [id number] [address] [place] [address], [place] [address] Jul, [facility] [address] [id number] [address] [place] [address], [place] [address] Jul, [facility] [address] [id number] [address] [address], [place] [address] 16 Jul, 2011 [facility] [address] [id number] [address] [place] [address], [place] [address] 14 Jul, 2011 [facility] [address] [id number] [address] [address], [place] [address] 07 Jul, 2011 [facility] [address] [id number] [address] [address], [place] [address] 02 Jul, 2011 [facility] [address] [id number] [address] [address], [place] [address] 21 Jul, 2011 [facility] [address] [id number] [address] [place] [address], [place] [address] 15 Jul, 2011 [facility] [address] [id number] [address] [place] [address], [place] [address] 13 Jul, 2011 [facility] [address] [id number] [address] [place] [address], [place] [address] Jul, [facility] [address] [id number] [address] [address], [place] [address] Jul, [facility] [address] [id number] [address] [address], [place] [address] Jun, [facility] [address] [id number] [address] [place] [address], [place] [address] Jun, [facility] [address] [id number] [address] [place] [address], [place] [address] Jun, [facility] [address] [id number] [address] [place] [address], [place] [address] Jun, [facility] [address] [id number] [address] [place] [address], [place] [address] Jun, [facility] [address] [id number] [address] [place] [address], [place] [address] Jun, [facility] [address] [id number] [address] [place] [address], [place] [address] Jun, [facility] [address] [id number] [address] [place] [address], [place] [address] May, [facility] [address] [id number] [address] [place] [address], [place] [address] May, [facility] [address] [id number] [address] [address], [place] [address] May, [facility] [address] [id number] [address] [place] [address], [place] [address] May, [facility] [address] [id number] [address] [place] [address], [place] [address] May, [facility] [address] [id number] [address] [address], [place] [address] May, [facility] [address] [id number] [address] [place] [address] May, [facility] [address] [id number] [address] [place] [address] May, [facility] [address] [id number] [address] [place] [address] May, [facility] [address] [id number] [address] [place] [address] May, [facility] [address] [id number] [address] [place] [address] Apr, [facility] [address] [id number] [address] [place] [address] Apr, [facility] [address] [id number] [address] [place] [address] Apr, [facility] [address] [id number] [address] [place] [address] Apr, [facility] [address] [id number] [address] [place] [address] Mar, [facility] [address] [id number] [address] [place] [address] Mar, [facility] [address] [id number] [address] [place] [address] Mar, [facility] [address] [id number] [address] [place] [address] Mar, IMMUNIZATIONS No Known Immunizations SOCIAL HISTORY [...]
--- OUTSIDE RECORDS SUMMARY | 2020-01-03 18:05 | XMS REPORT ---
Author Author Pattie YUNG Organization [facility] Address [address] [place] [address] Care Team Providers Care Salvage Supervisor Name Role Phone DILSHADRAFAELARASH Unavailable PROBLEMS Type Condition ICD9-CM Code [id number] Code Onset Dates Condition S tatus SNOMED Code Problem Major depressive disorder in partial remission F32 .4 Active 61560843 Problem FRANCIS (generalized anxiety disorder) F41.1 Active 39921296 Problem Conversion disorder (or hysterical neurosis, conversion ty pe) F44.9 Active 05456896 Problem Thoracic disc herniation M51.24 Activ e 841153592 Problem Slow transit constipation K59.01 Acti ve 43808699 Problem Constipation, unspecified constipation type K59.00 Active 10037683 Problem Mild episode of recurrent major depressive disorder F33.0 Active 947426640 Problem High blood pressure I10 Active 89421617 Problem Paroxysmal tachycardia I47.9 Active 55756735 Problem Nonadherence to medication Z91.14 Act vivian 128803188 Problem Seizure disorder G40.909 Active 128 124920 Problem Restless leg syndrome G25.81 Active 84544181 Problem Other chronic pain G89.29 Active 8 3354522 Problem Mild intermittent asthma without complication J45. 20 Active 080579437 Problem Obesity (BMI 30.0-34.9) E66.9 Active [id number] ALLERGIES No Information ENCOUNTERS Encounter Location Date Diagnosis [facility] [address] [facility] [id number] [address] [place] [id number] September, [facility] [address] [facility] [id number] [address] [place] [address] September, [facility] [address] [facility] [id number] [address] [place] [address] September, [facility] [address] [facility] [id number] [address] [place] [address] Aug, [facility] [address] [id number] [place] [id number] Aug, Dental examination Z01.20 [facility] [address] [id number] [address] [place] [id number] 15 Aug, 2019 Dental examination Z01.20 an d Caries K02.9 [facility] [address] [id number] [address] [place] [id number] Aug, [facility] [address] [id number] [address] [place] [address] Aug, [facility] [address] [facility] [id number] [address] [place] [address] Aug, Other chronic pain G89.29 an d Back muscle spasm M62.830 [facility] [address] [facility] [id number] [address] [place] [id number] 07 Aug, 2019 [facility] [address] [facility] [id number] [address] [place] [address] Aug, Major depressive disorder in partial remission F32.4 ; FRANCIS (generalized anxiety disorder) F41.1 ; Restless leg syndrome G25.81 and Nonadherence to medication Z91.14 [facility] [address] [facility] [id number] [address] [place] [address] Aug, [facility] [address] [facility] [id number] [address] [place] [address] Jul, [facility] [address] [facility] [id number] [address] [place] [address] Jul, [facility] [address] [facility] [id number] [address] [place] [address] Jul, Major depressive disorder in partial remission F32.4 ; FRANCIS (generalized anxiety disorder) F41.1 ; Restless leg syndrome G25.81 and High blood pressure I10 [facility] [address] [facility] [id number] [address] [place] [id number] 17 Jul, 2019 [facility] [address] [id number] [address] [place] [address] Jul, [facility] [address] [id number] [address] [place] [address] Jun, [facility] [address] [id number] [address] [place] [address] May, [facility] [address] [id number] [address] [place] [address] Apr, [facility] [address] [id number] [address] [place] [id number] Apr, [facility] [address] [id number] [address] [place] [address] Mar, [facility] [address] [facility] [id number] [address] [place] [address] Mar, Major depressive disorder in partial remission F32.4 ; FRANCIS (generalized anxiety disorder) F41.1 and Restless leg syndrome G25.81 [facility] [address] [facility] [id number] [address] [place] [address] Mar, Obesity (BMI 30.0-34.9) E66. 9 [facility] [address] [facility] [id number] [address] [place] [address] Jan, [facility] [address] [facility] [id number] [address] [place] [address] Jan, Burn T30.0 [facility] [address] [id number] [address] [place] [address] Dec, [facility] [address] [facility] [id number] [address] [place] [address] Nov, [facility] [address] [facility] [id number] [address] [place] [address] Nov, [facility] [address] [id number] [address] [place] [id number] Nov, Dental examination Z01.20 [facility] [address] [facility] [id number] [address] [place] [address] September, [facility] [address] [facility] [id number] [address] [place] [id number] September, Decay, teeth K02.9 and Denta l examination Z01.20 [facility] [address] [facility] [id number] [address] [place] [id number] September, Dental examination Z01.20 [facility] [address] [facility] [id number] [address] [place] [address] September, FRANCIS (generalized anxiety dis order) F41.1 ; Major depressive disorder in partial remission F32.4 and Restless leg syndrome G25.81 [facility] [address] [place] [id number] [place] [address] Aug, [facility] [address] [place] [id number] [place] [address] Jul, [facility] [address] [place] [id number] [place] [address] Jul, Encounter to discuss test re sults Z71.2 [facility] [address] [place] [id number] [place] [address] Jul, Pelvic pain R10.2 ; Screenin g for breast cancer Z12.31 and Obesity (BMI 30.0-34.9) E66.9 [facility] [address] [place] [id number] [address] [place] [address] Jul, Mild intermittent asthma wit hout complication J45.20 [facility] [address] [place] [id number] [address] [place] [address] Jul, Major depressive disorder in partial remission F32.4 and FRANCIS (generalized anxiety disorder) F41.1 [facility] [address] [place] [id number] [address] [place] [address] Jul, [facility] [address] [place] [id number] [place] [address] Jun, [facility] [address] [id number] [address] [place] [address] May, Major depressive disorder in partial remission F32.4 ; FRANCIS (generalized anxiety disorder) F41.1 and Restless leg syndrome G25.81 [facility] [address] [id number] [address] [place] [address] Apr, [facility] [address] [id number] [address] [place] [address] Mar, [facility] [address] [id number] [address] [place] [address] Jan, Pain in thoracic spine M54.6 and Other chronic pain G89.29 [facility] [address] [id number] [address] [place] [address] Jan, [facility] [address] [id number] [address] [place] [address] 11 Jan, 2018 Mild episode of recurrent ma saray depressive disorder F33.0 ; FRANCIS (generalized anxiety disorder) F41.1 and Restless leg syndrome G25.81 [facility] [address] [id number] [address] [place] [address] Dec, [facility] [address] [id number] [address] [place] [address] Dec, Hospital discharge follow-up Z09 [facility] [address] [id number] [address] [place] [phone] Nov, [facility] [address] [id number] [address] [place] [address] Nov, [facility] [address] [id number] [address] [place] [address] September, [facility] [address] [id number] [address] [place] [address] September, [facility] [address] [facility] [id number] [address] [place] [address] September, Major depressive disorder in partial remission F32.4 ; FRANCIS (generalized anxiety disorder) F41.1 and Restless leg syndrome G25.81 [facility] [address] [id number] [address] [place] [address] September, [facility] [address] [facility] [id number] [address] [place] [address] Jul, [facility] [address] [facility] [id number] [address] [place] [address] Jul, Dorsalgia, unspecified M54.9 [facility] [address] [facility] [id number] [address] [place] [address] Jul, Mild episode of recurrent ma saray depressive disorder F33.0 and FRANCIS (generalized anxiety disorder) F41.1 [facility] [address] [facility] [id number] [address] [place] [address] May, [facility] [address] [facility] [id number] [address] [place] [address] May, Dysuria R30.0 and Acute cyst itis with hematuria N30.01 [facility] [address] [facility] [id number] [address] [place] [address] Apr, [facility] [address] [facility] [id number] [address] [place] [address] Apr, Major depressive disorder in partial remission F32.4 and FRANCIS (generalized anxiety disorder) F41.1 [facility] [address] [facility] [id number] [address] [place] [address] Mar, Paroxysmal tachycardia I47.9 [facility] [address] [facility] [id number] [address] [place] [address] Mar, Paroxysmal tachycardia I47.9 and Pain of left lower extremity M79.605 [facility] [address] [facility] [id number] [address] [place] [address] Mar, FRANCIS (generalized anxiety dis order) F41.1 and Major depressive disorder in partial remission F32.4 [facility] [address] [facility] [id number] [address] [place] [address] Jan, [facility] [address] [facility] [id number] [address] [place] [address] Jan, [facility] [address] [facility] [id number] [place] [phone] Jan, [facility] [address] [id number] [address] [place] [address] Dec, Constipation, unspecified co nstipation type K59.00 [facility] [address] [facility] [id number] [place] [id number] Dec, [facility] [address] [place] [id number] [place] [address] Nov, [facility] [address] [place] [id number] [place] [address] Nov, Major depressive disorder in partial remission F32.4 and FRANCIS (generalized anxiety disorder) F41.1 [facility] [address] [facility] [id number] [address] [place] [address] Oct, Abdominal pain R10.9 and Slo w transit constipation K59.01 [facility] [address] [facility] [id number] [place] [phone] Aug, Major depressive disorder in partial remission F32.4 ; FRANCIS (generalized anxiety disorder) F41.1 ; Conversion disorder (or hysterical neurosis, conversion type) F44.9 ; Dorsalgia, unspecified M54.9 and Long-term use of high-risk medication Z79.899 [facility] [address] [facility] [id number] [address] [place] [address] Aug, [facility] [address] [facility] [id number] [address] [place] [address] Jul, Paroxysmal tachycardia I47.9 [facility] [address] [id number] [address] [place] [address] Jul, Paroxysmal tachycardia I47.9 [facility] [address] [id number] [address] [place] [address] Jun, [facility] [address] [id number] [address] [place] [address] Jun, Major depressive disorder in partial remission F32.4 ; FRANCIS (generalized anxiety disorder) F41.1 and Conversion disorder (or hysterical neurosis, conversion type) F44.9 [facility] [address] [id number] [address] [place] [address] May, Pelvic pain R10.2 [facility] [address] [id number] [address] [place] [address] Apr, Gastroenteritis K52.9 [facility] [address] [id number] [address] [place] [address] Apr, Blood in urine R31.9 and Acu te cystitis with hematuria N30.01 [facility] [address] [id number] [address] [place] [address] Apr, Major depressive disorder in partial remission F32.4 ; FRANCIS (generalized anxiety disorder) F41.1 and Conversion disorder (or hysterical neurosis, conversion type) F44.9 [facility] [address] [facility] [id number] [address] [place] [address] Apr, [facility] [address] [facility] [id number] [address] [place] [address] Apr, Abnormal mammogram R92.8 [facility] [address] [facility] [id number] [address] [place] [address] Mar, [facility] [address] [facility] [id number] [address] [place] [address] Mar, Gastroenteritis K52.9 and Se izure disorder G40.909 [facility] [address] [id number] [address] [place] [address] Dec, [facility] [address] [id number] [address] [place] [address] Dec, Other headache syndrome G44. 89 [facility] [address] [id number] [address] [place] [address] Dec, [facility] [address] [id number] [address] [place] [address] Dec, Thoracic disc herniation M51 .24 [facility] [address] [id number] [address] [place] [address] Dec, [facility] [address] [id number] [address] [place] [address] Nov, Major depressive disorder in partial remission F32.4 and FRANCIS (generalized anxiety disorder) F41.1 [facility] [address] [id number] [address] [place] [address] Nov, [facility] [address] [id number] [address] [place] [address] Nov, Dorsalgia, unspecified M54.9 [facility] [address] [id number] [address] [place] [address] Oct, [facility] [address] [id number] [address] [place] [address] September, [facility] [address] [id number] [address] [place] [address] Aug, [facility] [address] [id number] [address] [place] [address] Aug, Major depressive disorder in partial remission F32.4 and FRANCIS (generalized anxiety disorder) F41.1 [facility] [address] [id number] [address] [place] [address] Aug, [facility] [address] [id number] [address] [place] [address] Jul, Abnormal mammogram R92.8 [facility] [address] [id number] [address] [place] [address] Jul, [facility] [address] [id number] [address] [place] [address] Jul, [facility] [address] [id number] [address] [place] [address] Jul, [facility] [address] [id number] [address] [place] [address] Jul, [facility] [address] [id number] [address] [place] [address] Jul, [facility] [address] [id number] [address] [place] [address] Jul, [facility] [address] [id number] [address] [place] [address] Jun, Major depressive disorder in partial remission F32.4 and FRANCIS (generalized anxiety disorder) F41.1 [facility] [address] [id number] [address] [place] [address] Jun, [facility] [address] [id number] [address] [place] [address] May, [facility] [address] [id number] [address] [place] [address] Apr, [facility] [address] [id number] [address] [place] [address] Mar, Major depressive disorder, r ecurrent episode, moderate F33.1 ; PTSD (post-traumatic stress disorder) F43.10 and FRANCIS (generalized anxiety disorder) F41.1 [facility] [address] [id number] [address] [place] [address] Mar, [facility] [address] [id number] [address] [place] [address] Mar, [facility] [address] [id number] [address] [place] [address] 07 Mar, 2015 [facility] [address] [id number] [address] [place] [address] 07 Mar, 2015 [facility] [address] [id number] [address] [place] [address] 23 Jan, 2015 [facility] [address] [id number] [address] [place] [id number] 15 Jan, 2015 [facility] [address] [id number] [address] [place] [address] 15 Jan, 2015 [facility] [address] [id number] [address] [place] [address] 14 Jan, 2015 Thoracic disc herniation 722 .11 [facility] [address] [id number] [address] [place] [address] Dec, [facility] [address] [id number] [address] [place] [address] Dec, [facility] [address] [id number] [address] [place] [address] Dec, [facility] [address] [id number] [address] [place] [address] 16 Nov, 2014 [facility] [address] [id number] [address] [place] [address] 14 Nov, 2014 Generalized anxiety disorder 300.02 ; Posttraumatic stress disorder 309.81 and Major depressive disorder, recurrent episode, moderate 296.32 [facility] [address] [id number] [address] [place] [address] Nov, [facility] [address] [id number] [address] [place] [address] Nov, [facility] [address] [id number] [address] [place] [address] Oct, [facility] [address] [id number] [address] [place] [address] 05 Oct, 2014 [facility] [place] [facility] [address] [id number] [address] [place] [address], [place] [address] 04 Oct, 2014 [facility] [address] [id number] [address] [place] [address], [place] [address] September, [facility] [address] [id number] [address] [place] [address], [place] [address] September, [facility] [address] [id number] [address] [place] [address], [place] [address] Aug, [facility] [address] [id number] [address] [place] [address], [place] [address] Aug, [facility] [address] [id number] [address] [place] [address], [place] [address] Jul, [facility] [address] [id number] [address] [place] [address], [place] [address] Jul, [facility] [address] [id number] [address] [place] [address], [place] [address] Jul, [facility] [address] [id number] [address] [place] [address], [place] [address] 17 Jul, 2014 [facility] [address] [id number] [address] [place] [address], [place] [address] Jul, [facility] [address] [id number] [address] [place] [address], [place] [address] Jul, [facility] [address] [id number] [address] [place] [address], [place] [address] Jul, [facility] [address] [id number] [address] [place] [address], [place] [address] Jul, [facility] [address] [id number] [address] [place] [address], [place] [address] Jul, [facility] [address] [id number] [address] [place] [address], [place] [address] Jul, [facility] [address] [id number] [address] [place] [address], [place] [address] Jun, [facility] [address] [id number] [address] [place] [address], [place] [address] Jun, [facility] [address] [id number] [address] [place] [address], [place] [address] Jun, [facility] [address] [id number] [address] [place] [address], [place] [address] May, [facility] [address] [id number] [address] [place] [id number] Apr, [facility] [address] [id number] [address] [place] [address], [place] [address] Apr, [facility] [address] [id number] [address] [place] [id number] Apr, [facility] [address] [id number] [address] [place] [address], [place] [address] Apr, [facility] [address] [id number] [address] [place] [address], [place] [address] Apr, [facility] [address] [id number] [address] [place] [address], [place] [address] Apr, [facility] [address] [id number] [address] [place] [address], [place] [address] Apr, [facility] [address] [id number] [address] [place] [address], [place] [address] Apr, [facility] [address] [id number] [address] [place] [address] Mar, [facility] [address] [id number] [address] [place] [address], [place] [address] Mar, [facility] [address] [id number] [address] [place] [address], [place] [address] Mar, [facility] [address] [id number] [address] [place] [address] Mar, [facility] [address] [id number] [address] [place] [address], [place] [address] 24 Mar, 2014 [facility] [address] [id number] [address] [place] [address], [place] [address] 24 Mar, 2014 [facility] [address] [id number] [address] [place] [address], [place] [address] 24 Mar, 2014 [facility] [address] [id number] [address] [place] [address], [place] [address] Mar, [facility] [address] [id number] [address] [place] [address], [place] [address] Mar, [facility] [address] [id number] [address] [place] [address], [place] [address] Mar, [facility] [address] [id number] [address] [place] [address], [place] [address] 17 Mar, 2014 [facility] [address] [id number] [address] [place] [address], [place] [address] Mar, [facility] [address] [id number] [address] [place] [address], [place] [address] 14 Mar, 2014 [facility] [address] [id number] [address] [place] [address], [place] [address] Mar, [facility] [address] [id number] [address] [place] [address], [place] [address] 07 Mar, 2014 [facility] [address] [id number] [address] [place] [address], [place] [address] Mar, [facility] [address] [id number] [address] [place] [address], [place] [address] Mar, [facility] [address] [id number] [address] [place] [address], [place] [address] 19 Jan, 2013 [facility] [address] [id number] [address] [place] [address], [place] [address] 19 Jan, 2013 [facility] [address] [id number] [address] [place] [address], [place] [address] 09 Jan, 2013 [facility] [address] [id number] [address] [place] [address], [place] [address] 09 Sep, 2013 [facility] [address] [id number] [address] [place] [address], [place] [address] 05 Sep, 2013 [facility] [address] [id number] [address] [place] [address], [place] [address] 05 Sep, 2013 [facility] [address] [id number] [address] [place] [address], [place] [address] 05 Sep, 2013 [facility] [address] [id number] [address] [place] [address], [place] [address] 05 Sep, 2013 [facility] [address] [id number] [address] [place] [address], [place] [address] 03 Jan, 2013 [facility] [address] [id number] [address] [place] [address], [place] [address] Jan, 2013 [facility] [address] [id number] [address] [place] [address], [place] [address] Jan, 2013 [facility] [address] [id number] [address] [place] [address], [place] [address] Jan, 2013 [facility] [address] [id number] [address] [place] [address], [place] [address] Jan, 2013 [facility] [address] [id number] [address] [place] [address], [place] [address] Dec, [facility] [address] [id number] [address] [place] [address], [place] [address] Dec, [facility] [address] [id number] [address] [place] [address], [place] [address] Dec, [facility] [address] [id number] [address] [place] [address], [place] [address] Dec, [facility] [address] [id number] [address] [place] [address], [place] [address] Dec, [facility] [address] [id number] [address] [place] [address], [place] [address] Dec, [facility] [id number] Dec, [facility] [address] [facility] [id number] Dec, [facility] [address] [id number] [address] [place] [address], [place] [address] Dec, [facility] [address] [id number] [address] [place] [address], [place] [address] Dec, [facility] [address] [id number] [address] [place] [address], [place] [address] Dec, [facility] [address] [id number] [address] [place] [address], [place] [address] Dec, [facility] [address] [id number] [address] [place] [address], [place] [address] Nov, [facility] [address] [id number] [address] [place] [address], [place] [address] Nov, [facility] [address] [id number] [address] [place] [address], [place] [address] Nov, [facility] [address] [id number] [address] [place] [address], [place] [address] Nov, [facility] [address] [id number] [address] [place] [address], [place] [address] Nov, [facility] [address] [id number] [address] [place] [address], [place] [address] Nov, [facility] [address] [id number] [address] [place] [address], [place] [address] Nov, [facility] [address] [id number] [address] [place] [address], [place] [address] Nov, [facility] [address] [id number] [address] [place] [address], [place] [address] Nov, [facility] [address] [id number] [address] [place] [address], [place] [address] Nov, [facility] [address] [id number] [facility] [place] [address] Nov, [facility] [address] [id number] [address] [place] [address], [place] [address] Nov, [facility] [address] [id number] [address] [place] [address], [place] [address] Nov, [facility] [address] [id number] [address] [place] [address], [place] [address] Oct, [facility] [address] [id number] [address] [place] [address], [place] [address] Oct, [facility] [address] [id number] [address] [place] [address], [place] [address] Oct, [facility] [address] [id number] [address] [place] [address], [place] [address] Oct, [facility] [address] [id number] [address] [place] [address], [place] [address] Oct, [facility] [address] [id number] [address] [place] [address], [place] [address] Oct, [facility] [address] [id number] [address] [place] [address], [place] [address] Oct, [facility] [address] [id number] [address] [place] [address], [place] [address] Oct, [facility] [address] [id number] [address] [place] [address], [place] [address] Oct, [facility] [address] [id number] [address] [place] [address], [place] [address] Oct, [facility] [address] [id number] [address] [place] [address], [place] [address] Oct, [facility] [address] [id number] [address] [place] [address], [place] [address] Oct, [facility] [address] [id number] [facility] [place] [address] September, [facility] [address] [id number] [facility] [place] [address] September, [facility] [address] [id number] [facility] [place] [address] September, [facility] [address] [id number] [address] [place] [address], [place] [address] September, [facility] [address] [id number] [address] [place] [address], [place] [address] Aug, [facility] [address] [id number] [address] [place] [address], [place] [address] Aug, [facility] [address] [id number] [address] [place] [address], [place] [address] Aug, [facility] [address] [id number] [address] [place] [address], [place] [address] Aug, [facility] [address] [id number] [address] [place] [address], [place] [address] Aug, [facility] [address] [id number] [address] [place] [address], [place] [address] Aug, [facility] [address] [id number] [address] [place] [address], [place] [address] Aug, [facility] [address] [id number] [address] [place] [address], [place] [address] Jul, [facility] [address] [id number] [address] [place] [address], [place] [address] Jul, [facility] [address] [id number] [address] [place] [address], [place] [address] Jul, [facility] [address] [id number] [address] [place] [address], [place] [address] Jul, [facility] [address] [id number] [address] [place] [address], [place] [address] Jul, [facility] [address] [id number] [facility] [place] [address] 19 Jul, 2013 [facility] [address] [id number] [address] [place] [address], [place] [address] 18 Jul, 2013 [facility] [address] [id number] [facility] [place] [address] 18 Jul, 2013 [facility] [address] [id number] [address] [place] [address], [place] [address] 18 Jul, 2013 [facility] [address] [id number] [address] [place] [address], [place] [address] Jul, [facility] [address] [id number] [address] [place] [address], [place] [address] 18 Jul, 2013 [facility] [address] [id number] [address] [place] [address], [place] [address] 18 Jul, 2013 [facility] [address] [id number] [address] [place] [address], [place] [address] 14 Jul, 2013 [facility] [address] [id number] [address] [place] [address], [place] [address] 14 Jul, 2013 [facility] [address] [id number] [address] [place] [address], [place] [address] Jul, [facility] [address] [id number] [address] [place] [address], [place] [address] Jul, [facility] [address] [id number] [address] [place] [address], [place] [address] Jul, [facility] [address] [id number] [address] [place] [address], [place] [address] Jul, [facility] [address] [id number] [address] [place] [address], [place] [address] Jun, [facility] [address] [id number] [address] [place] [address], [place] [address] Jun, [facility] [address] [id number] [address] [place] [address], [place] [address] 15 Jun, 2013 [facility] [address] [id number] [address] [place] [address], [place] [address] 15 Jun, 2013 [facility] [address] [id number] [address] [place] [address], [place] [address] 14 Jun, 2013 [facility] [address] [id number] [address] [place] [address], [place] [address] 14 Jun, 2013 [facility] [address] [id number] [address] [place] [address], [place] [address] 14 Jun, 2013 [facility] [address] [id number] [address] [place] [address], [place] [address] 14 Jun, 2013 [facility] [address] [id number] [address] [place] [address], [place] [address] 14 Jun, 2013 [facility] [address] [id number] [address] [place] [address], [place] [address] 14 Jun, 2013 [facility] [address] [id number] [address] [place] [address], [place] [address] 27 May, 2013 [facility] [address] [id number] [address] [place] [address], [place] [address] 27 May, 2013 [facility] [address] [id number] [address] [place] [address], [place] [address] 26 May, 2013 [facility] [address] [id number] [address] [place] [address], [place] [address] 19 May, 2013 [facility] [address] [id number] [address] [place] [address], [place] [address] 19 May, 2013 [facility] [address] [id number] [address] [place] [address], [place] [address] 16 May, 2013 [facility] [address] [id number] [address] [place] [address], [place] [address] 16 May, 2013 [facility] [address] [id number] [address] [place] [address], [place] [address] 16 May, 2013 [facility] [address] [id number] [address] [place] [address], [place] [address] 16 May, 2013 [facility] [address] [id number] [address] [place] [address], [place] [address] 13 May, 2013 [facility] [address] [id number] [address] [place] [address], [place] [address] 13 May, 2013 [facility] [address] [id number] [address] [place] [address], [place] [address] 11 May, 2013 [facility] [address] [id number] [address] [place] [address], [place] [address] 20 Apr, 2013 [facility] [address] [id number] [address] [place] [address], [place] [address] 18 Apr, 2013 [facility] [address] [id number] [address] [place] [address], [place] [address] 18 Apr, 2013 [facility] [address] [id number] [address] [place] [address], [place] [address] Apr, [facility] [address] [id number] [address] [place] [address], [place] [address] Apr, [facility] [address] [id number] [address] [place] [address], [place] [address] 08 Apr, 2013 [facility] [address] [id number] [address] [place] [address], [place] [address] 08 Apr, 2013 [facility] [address] [id number] [address] [place] [address], [place] [address] 07 Apr, 2013 [facility] [address] [id number] [address] [place] [address], [place] [address] Apr, [facility] [address] [id number] [address] [place] [address], [place] [address] 07 Apr, 2013 [facility] [address] [id number] [address] [place] [address], [place] [address] 07 Apr, 2013 [facility] [address] [id number] [address] [place] [address] [place] [address] Mar, [facility] [address] [id number] [address] [place] [address], [place] [address] Mar, [facility] [address] [id number] [address] [place] [address], [place] [address] Mar, [facility] [address] [id number] [address] [place] [address], [place] [address] Mar, [facility] [address] [id number] [address] [place] [address], [place] [address] Mar, [facility] [address] [id number] [address] [place] [address], [place] [address] Mar, [facility] [address] [id number] [address] [place] [address], [place] [address] Mar, [facility] [address] [id number] [address] [place] [address], [place] [address] Mar, [facility] [address] [id number] [address] [place] [address], [place] [address] 18 Mar, 2013 [facility] [address] [id number] [address] [place] [address], [place] [address] 15 Mar, 2013 [facility] [address] [id number] [address] [place] [address] 15 Mar, 2013 [facility] [address] [id number] [address] [place] [address], [place] [address] Mar, [facility] [address] [id number] [address] [place] [address] 30 Jan, 2012 [facility] [address] [id number] [address] [place] [address], [place] [address] 25 Jan, 2012 [facility] [address] [id number] [address] [place] [address], [place] [address] 20 Jan, 2012 [facility] [address] [id number] [address] [place] [address] 10 Jan, 2012 [facility] [address] [id number] [facility] [place] [address] Dec, [facility] [address] [id number] [address] [place] [address], [place] [address] Dec, [facility] [address] [id number] [address] [place] [address], [place] [address] Dec, [facility] [address] [id number] [address] [place] [address], [place] [address] Dec, [facility] [address] [id number] [address] [place] [address], [place] [address] Dec, [facility] [address] [id number] [address] [place] [address], [place] [address] Dec, [facility] [address] [id number] [address] [place] [address], [place] [address] Dec, [facility] [address] [id number] [address] [place] [address], [place] [address] Dec, [facility] [address] [id number] [address] [place] [address], [place] [address] Dec, [facility] [address] [id number] [address] [place] [address], [place] [address] Nov, [facility] [address] [id number] [address] [place] [address], [place] [address] Nov, [facility] [address] [id number] [address] [place] [address], [place] [address] Nov, [facility] [address] [id number] [address] [place] [address], [place] [address] Nov, [facility] [address] [id number] [address] [place] [address], [place] [address] Nov, [facility] [address] [id number] [address] [place] [address], [place] [address] Nov, [facility] [address] [id number] [address] [place] [address], [place] [address] Nov, [facility] [address] [id number] [facility] [place] [address] Nov, [facility] [address] [id number] [address] [place] [address], [place] [address] Oct, [facility] [address] [id number] [address] [place] [address], [place] [address] Oct, [facility] [address] [id number] [address] [place] [address], [place] [address] Oct, [facility] [address] [id number] [address] [place] [address], [place] [address] Oct, [facility] [address] [id number] [address] [place] [address], [place] [address] Oct, [facility] [address] [id number] [address] [place] [address], [place] [address] Oct, [facility] [address] [id number] [address] [place] [address], [place] [address] Oct, [facility] [address] [id number] [address] [place] [address], [place] [address] Oct, [facility] [address] [id number] [address] [place] [address], [place] [address] Oct, [facility] [address] [id number] [address] [place] [address], [place] [address] 18 Oct, 2012 [facility] [address] [id number] [address] [place] [address], [place] [address] 17 Oct, 2012 [facility] [address] [id number] [address] [place] [address], [place] [address] 14 Oct, 2012 [facility] [address] [id number] [address] [place] [address], [place] [address] 07 Oct, 2012 [facility] [address] [id number] [address] [place] [address], [place] [address] September, [facility] [address] [id number] [address] [place] [address], [place] [address] September, [facility] [address] [id number] [address] [place] [address], [place] [address] September, [facility] [address] [id number] [address] [place] [address], [place] [address] Aug, [facility] [address] [id number] [address] [place] [address], [place] [address] Aug, [facility] [address] [id number] [address] [place] [address], [place] [address] Aug, [facility] [address] [id number] [address] [place] [address], [place] [address] Aug, [facility] [address] [id number] [address] [place] [address], [place] [address] Aug, [facility] [address] [id number] [address] [place] [address], [place] [address] Aug, [facility] [address] [id number] [address] [place] [address], [place] [address] Aug, [facility] [address] [id number] [address] [place] [address], [place] [address] Jul, [facility] [address] [id number] [address] [place] [address], [place] [address] Jul, [facility] [address] [id number] [address] [place] [address], [place] [address] Jul, [facility] [address] [id number] [address] [place] [address], [place] [address] Jul, [facility] [address] [id number] [address] [place] [address], [place] [address] Jul, [facility] [address] [id number] [address] [place] [address], [place] [address] Jul, [facility] [address] [id number] [address] [place] [address], [place] [address] Jul, [facility] [address] [id number] [address] [place] [address], [place] [address] Jul, [facility] [address] [id number] [address] [place] [address], [place] [address] Jul, [facility] [address] [id number] [address] [place] [address], [place] [address] Jul, [facility] [address] [id number] [address] [place] [address], [place] [address] Jul, [facility] [address] [id number] [address] [place] [address], [place] [address] Jul, [facility] [address] [id number] [address] [place] [address], [place] [address] Jul, [facility] [address] [id number] [address] [place] [address], [place] [address] Jun, [facility] [address] [id number] [address] [place] [address], [place] [address] Jun, [facility] [address] [id number] [address] [place] [address], [place] [address] Jun, [facility] [address] [id number] [address] [place] [address], [place] [address] Jun, [facility] [address] [id number] [address] [place] [address], [place] [address] 15 Jun, 2012 [facility] [address] [id number] [address] [place] [address], [place] [address] 14 Jun, 2012 [facility] [address] [id number] [address] [place] [address], [place] [address] Jun, [facility] [address] [id number] [address] [place] [address], [place] [address] May, [facility] [address] [id number] [address] [place] [address], [place] [address] May, [facility] [address] [id number] [address] [place] [address], [place] [address] May, [facility] [address] [id number] [address] [place] [address], [place] [address] May, [facility] [address] [id number] [address] [place] [address], [place] [address] May, [facility] [address] [id number] [address] [place] [address], [place] [address] May, [facility] [address] [id number] [address] [place] [address], [place] [address] May, [facility] [address] [id number] [address] [place] [address], [place] [address] May, [facility] [address] [id number] [address] [place] [address], [place] [address] May, [facility] [address] [id number] [address] [place] [address], [place] [address] May, [facility] [address] [id number] [address] [place] [address], [place] [address] Apr, [facility] [address] [id number] [address] [place] [address], [place] [address] Apr, [facility] [address] [id number] [address] [place] [address], [place] [address] Apr, [facility] [address] [id number] [address] [place] [address], [place] [address] Apr, [facility] [address] [id number] [address] [place] [address], [place] [address] Apr, [facility] [address] [id number] [address] [place] [address], [place] [address] Apr, [facility] [address] [id number] [address] [place] [address], [place] [address] Apr, [facility] [address] [id number] [address] [place] [address], [place] [address] Apr, [facility] [address] [id number] [address] [place] [address], [place] [address] Apr, [facility] [address] [id number] [address] [place] [address], [place] [address] Apr, [facility] [address] [id number] [address] [place] [address], [place] [address] Apr, [facility] [address] [id number] [address] [place] [address], [place] [address] Apr, [facility] [address] [id number] [address] [place] [address], [place] [address] Mar, [facility] [address] [id number] [address] [place] [address], [place] [address] Mar, [facility] [address] [id number] [address] [place] [address], [place] [address] Mar, [facility] [address] [id number] [address] [place] [address], [place] [address] Mar, [facility] [address] [id number] [address] [place] [address], [place] [address] Mar, [facility] [address] [id number] [address] [place] [address] Mar, [facility] [address] [id number] [address] [place] [address] Mar, [facility] [address] [id number] [address] [place] [address] 30 Mar, 2011 [facility] [address] [id number] [address] [place] [address], [place] [address] Mar, [facility] [address] [id number] [address] [place] [address], [place] [address] Mar, [facility] [address] [id number] [address] [place] [address] 16 Mar, 2012 [facility] [address] [id number] [address] [place] [address] 16 Mar, 2012 [facility] [address] [id number] [address] [place] [address], [place] [address] 12 Mar, 2012 [facility] [address] [id number] [address] [place] [address], [place] [address] 12 Mar, 2012 [facility] [address] [id number] [address] [place] [address], [place] [address] 03 Mar, 2012 [facility] [address] [id number] [address] [place] [address], [place] [address] 02 Mar, 2012 [facility] [address] [id number] [address] [place] [address], [place] [address] 25 Jan, 2012 [facility] [address] [id number] [address] [place] [address], [place] [address] 24 Jan, 2012 [facility] [address] [id number] [address] [place] [address], [place] [address] 22 Jan, 2012 [facility] [address] [id number] [address] [place] [address], [place] [address] 22 Jan, 2012 [facility] [address] [id number] [address] [place] [address], [place] [address] 21 Jan, 2012 [facility] [address] [id number] [address] [place] [address], [place] [address] 18 Jan, 2012 [facility] [address] [id number] [address] [place] [address], [place] [address] 14 Jan, 2012 [facility] [address] [id number] [address] [place] [address], [place] [address] 07 Jan, 2012 [facility] [address] [id number] [address] [place] [address], [place] [address] 15 Dec, 2011 [facility] [address] [id number] [address] [place] [address], [place] [address] 10 Dec, 2011 [facility] [address] [id number] [address] [place] [address], [place] [address] 09 Dec, 2011 [facility] [address] [id number] [facility] [place] [address] Dec, [facility] [address] [id number] [address] [place] [address], [place] [address] Dec, [facility] [address] [id number] [address] [place] [address], [place] [address] Dec, [facility] [address] [id number] [address] [place] [address], [place] [address] Dec, [facility] [address] [id number] [address] [place] [address], [place] [address] Nov, [facility] [address] [id number] [address] [place] [address], [place] [address] Oct, [facility] [address] [id number] [address] [place] [address], [place] [address] Aug, [facility] [address] [id number] [address] [place] [address], [place] [address] Jul, [facility] [address] [id number] [address] [place] [address], [place] [address] Jul, [facility] [address] [id number] [address] [place] [address], [place] [address] 16 Jul, 2011 [facility] [address] [id number] [address] [place] [address], [place] [address] 14 Jul, 2011 [facility] [address] [id number] [address] [place] [address], [place] [address] 07 Jul, 2011 [facility] [address] [id number] [address] [place] [address], [place] [address] 02 Jul, 2011 [facility] [address] [id number] [address] [place] [address], [place] [address] 21 Jul, 2011 [facility] [address] [id number] [address] [place] [address], [place] [address] 15 Jul, 2011 [facility] [address] [id number] [address] [place] [address], [place] [address] 13 Jul, 2011 [facility] [address] [id number] [address] [place] [address], [place] [address] Jul, [facility] [address] [id number] [address] [place] [address], [place] [address] Jul, [facility] [address] [id number] [address] [place] [address], [place] [address] Jun, [facility] [address] [id number] [address] [place] [address], [place] [address] Jun, [facility] [address] [id number] [address] [place] [address], [place] [address] Jun, [facility] [address] [id number] [address] [place] [address], [place] [address] Jun, [facility] [address] [id number] [address] [place] [address], [place] [address] Jun, [facility] [address] [id number] [address] [place] [address], [place] [address] Jun, [facility] [address] [id number] [address] [place] [address], [place] [address] Jun, [facility] [address] [id number] [address] [place] [address], [place] [address] May, [facility] [address] [id number] [address] [place] [address], [place] [address] May, [facility] [address] [id number] [address] [place] [address], [place] [address] May, [facility] [address] [id number] [address] [place] [address], [place] [address] May, [facility] [address] [id number] [address] [place] [address], [place] [address] May, [facility] [address] [id number] [address] [place] [address], [place] [address] May, [facility] [address] [id number] [address] [place] [address] May, [facility] [address] [id number] [address] [place] [address] May, [facility] [address] [id number] [address] [place] [address] May, [facility] [address] [id number] [address] [place] [address] May, [facility] [address] [id number] [address] [place] [address] Apr, [facility] [address] [id number] [address] [place] [address] Apr, [facility] [address] [id number] [address] [place] [address] Apr, [facility] [address] [id number] [address] [place] [address] Apr, [facility] [address] [id number] [address] [place] [address] Mar, [facility] [address] [id number] [address] [place] [address] Mar, [facility] [address] [id number] [address] [place] [address] Mar, [facility] [address] [id number] [address] [place] [address] Mar, IMMUNIZATIONS No Known Immunizations SOCIAL HISTORY [...]
--- OUTSIDE RECORDS SUMMARY | 2020-01-03 18:06 | XMS REPORT ---
Author Author Pattie YUNG Organization [facility] Address [address] [place] [address] Care Team Providers Care Research Development Manager Name Role Phone DILSHADRAFAELARASH Unavailable PROBLEMS Type Condition ICD9-CM Code VCN06-ED Code Onset Dates Condition S tatus SNOMED Code Problem Major depressive disorder in partial remission F32 .4 Active 29360144 Problem FRANCIS (generalized anxiety disorder) F41.1 Active 94476554 Problem Conversion disorder (or hysterical neurosis, conversion ty pe) F44.9 Active 55224729 Problem Thoracic disc herniation M51.24 Activ e 184896707 Problem Slow transit constipation K59.01 Acti ve 05381600 Problem Constipation, unspecified constipation type K59.00 Active 93815538 Problem Mild episode of recurrent major depressive disorder F33.0 Active 070360514 Problem High blood pressure I10 Active 61274090 Problem Paroxysmal tachycardia I47.9 Active 47327403 Problem Nonadherence to medication Z91.14 Act vivian 400870726 Problem Seizure disorder G40.909 Active 128 509804 Problem Restless leg syndrome G25.81 Active 49759162 Problem Other chronic pain G89.29 Active 8 4766452 Problem Mild intermittent asthma without complication J45. 20 Active 151952167 Problem Obesity (BMI 30.0-34.9) E66.9 Active [id number] ALLERGIES No Information ENCOUNTERS Encounter Location Date Diagnosis [facility] [address] [facility] [place] [id number] [address] [place] [phone] September, [facility] [address] [facility] [place] [id number] [address] [place] [phone] September, [facility] [address] [facility] [place] [id number] [address] [place] [phone] September, [facility] [address] [facility] [place] [id number] [address] [place] [phone] Aug, [facility] [address] [id number] [place] [id number] Aug, Dental examination Z01.20 [facility] [address] [id number] [address] [place] [address] [id number] 15 Aug, 2019 Dental examination Z01.20 [address]ies K02.9 [facility] [address] [id number] [address] [place] [phone] Aug, [facility] [address] [id number] [address] [place] [phone] Aug, [facility] [address] [facility] [place] [id number] [address] [place] [phone] Aug, Other chronic pain G89.29 an d Back muscle spasm M62.830 [facility] [address] [facility] [place] [id number] [address] [place] [phone] 07 Aug, 2019 [facility] [address] [facility] [place] [id number] [address] [place] [phone] Aug, Major depressive disorder in partial remission F32.4 ; FRANCIS (generalized anxiety disorder) F41.1 ; Restless leg syndrome G25.81 and Nonadherence to medication Z91.14 [facility] [address] [facility] [place] [id number] [address] [place] [phone] Aug, [facility] [address] [facility] [place] [id number] [address] [place] [phone] Jul, [facility] [address] [facility] [place] [id number] [address] [place] [phone] Jul, [facility] [address] [facility] [place] [id number] [address] [place] [phone] Jul, Major depressive disorder in partial remission F32.4 ; FRANCIS (generalized anxiety disorder) F41.1 ; Restless leg syndrome G25.81 and High blood pressure I10 [facility] [address] [facility] [place] [id number] [address] [place] [id number] 17 Jul, 2019 [facility] [address] [id number] [address] [place] [phone] Jul, [facility] [address] [id number] [address] [place] [phone] Jun, [facility] [address] [id number] [address] [place] [phone] May, [facility] [address] [id number] [address] [place] [phone] Apr, [facility] [address] [id number] [address] [place] [phone] Apr, [facility] [address] [id number] [address] [place] [phone] Mar, [facility] [address] [facility] [place] [id number] [address] [place] [phone] Mar, Major depressive disorder in partial remission F32.4 ; FRANCIS (generalized anxiety disorder) F41.1 and Restless leg syndrome G25.81 [facility] [address] [facility] [place] [id number] [address] [place] [phone] Mar, Obesity (BMI 30.0-34.9) E66. 9 [facility] [address] [facility] [place] [id number] [address] [place] [phone] Jan, [facility] [address] [facility] [place] [id number] [address] [place] [phone] Jan, Burn T30.0 [facility] [address] [id number] [address] [place] [phone] Dec, [facility] [address] [facility] [place] [id number] [address] [place] [id number] Nov, [facility] [address] [facility] [place] [id number] [address] [place] [phone] Nov, [facility] [address] [id number] [address] [place] [id number] Nov, Dental examination Z01.20 [facility] [address] [facility] [place] [id number] [address] [place] [phone] September, [facility] [address] [facility] [id number] [address] [place] [address] [phone] September, Decay, teeth K02.9 and Denta l examination Z01.20 [facility] [address] [facility] [id number] [address] [place] [phone] September, Dental examination Z01.20 [facility] [address] [facility] [place] [id number] [address] [place] [phone] September, FRANCIS (generalized anxiety dis order) F41.1 ; Major depressive disorder in partial remission F32.4 and Restless leg syndrome G25.81 [place] [address] [place] [id number] [place] [phone] Aug, [place] [address] [place] [id number] [place] [phone] Jul, [place] [address] [place] [id number] [place] [phone] Jul, Encounter to discuss test re sults Z71.2 [place] [address] [place] [id number] [place] [phone] Jul, Pelvic pain R10.2 ; Screenin g for breast cancer Z12.31 and Obesity (BMI 30.0-34.9) E66.9 [place] [address] [place] [id number] [address] [place] [phone] Jul, Mild intermittent asthma wit hout complication J45.20 [place] [address] [place] [id number] [address] [place] [phone] Jul, Major depressive disorder in partial remission F32.4 and FRANCIS (generalized anxiety disorder) F41.1 [place] [address] [place] [id number] [address] [place] [phone] Jul, [place] [address] [place] [address] [place] [address] Jun, [facility] [address] [id number] [address] [place] [id number] May, Major depressive disorder in partial remission F32.4 ; FRANCIS (generalized anxiety disorder) F41.1 and Restless leg syndrome G25.81 [facility] [address] [id number] [address] [place] [phone] Apr, [facility] [address] [id number] [address] [place] [phone] Mar, [facility] [address] [id number] [address] [place] [phone] Jan, Pain in thoracic spine M54.6 and Other chronic pain G89.29 [facility] [address] [id number] [address] [place] [phone] Jan, [facility] [address] [id number] [address] [place] [phone] 11 Jan, 2018 Mild episode of recurrent ma saray depressive disorder F33.0 ; FRANCIS (generalized anxiety disorder) F41.1 and Restless leg syndrome G25.81 [facility] [address] [id number] [address] [place] [phone] Dec, [facility] [address] [id number] [address] [place] [phone] Dec, Hospital discharge follow-up Z09 [facility] [address] [id number] [address] [place] [phone] Nov, [facility] [address] [id number] [address] [place] [phone] Nov, [facility] [address] [id number] [address] [place] [phone] September, [facility] [address] [id number] [address] [place] [phone] September, [facility] [address] [facility] [place] [id number] [address] [place] [phone] September, Major depressive disorder in partial remission F32.4 ; FRANCIS (generalized anxiety disorder) F41.1 and Restless leg syndrome G25.81 [facility] [address] [id number] [address] [place] [phone] September, [facility] [address] [facility] [place] [id number] [address] [place] [phone] Jul, [facility] [address] [facility] [place] [id number] [address] [place] [phone] Jul, Dorsalgia, unspecified M54.9 [place] [address] [facility] [place] [id number] [address] [place] [phone] Jul, Mild episode of recurrent ma saray depressive disorder F33.0 and FRANCIS (generalized anxiety disorder) F41.1 [place] [address] [facility] [place] [id number] [address] [place] [phone] May, [facility] [address] [facility] [place] [id number] [address] [place] [phone] May, Dysuria R30.0 and Acute cyst itis with hematuria N30.01 [facility] [address] [facility] [place] [id number] [address] [place] [phone] Apr, [facility] [address] [facility] [place] [id number] [address] [place] [phone] Apr, Major depressive disorder in partial remission F32.4 and FRANCIS (generalized anxiety disorder) F41.1 [place] [address] [facility] [place] [id number] [address] [place] [phone] Mar, Paroxysmal tachycardia I47.9 [place] [address] [facility] [place] [id number] [address] [place] [phone] Mar, Paroxysmal tachycardia I47.9 and Pain of left lower extremity M79.605 [place] [address] [facility] [place] [id number] [address] [place] [phone] Mar, FRANCIS (generalized anxiety dis order) F41.1 and Major depressive disorder in partial remission F32.4 [facility] [address] [facility] [place] [id number] [address] [place] [phone] Jan, [facility] [address] [facility] [place] [id number] [address] [place] [phone] Jan, [facility] [address] [facility] [place] [id number] [place] [phone] Jan, [facility] [address] [id number] [address] [place] [phone] Dec, Constipation, unspecified co nstipation type K59.00 [place] [address] [facility] [place] [id number] [place] [phone] Dec, [place] [address] [place] [id number] [place] [phone] Nov, [place] [address] [place] [id number] [place] [phone] Nov, Major depressive disorder in partial remission F32.4 and FRANCIS (generalized anxiety disorder) F41.1 [facility] [address] [facility] [place] [id number] [address] [place] [phone] Oct, Abdominal pain R10.9 and Slo w transit constipation K59.01 [place] [address] [facility] [place] [id number] [place] [phone] Aug, Major depressive disorder in partial remission F32.4 ; FRANCIS (generalized anxiety disorder) F41.1 ; Conversion disorder (or hysterical neurosis, conversion type) F44.9 ; Dorsalgia, unspecified M54.9 and Long-term use of high-risk medication Z79.899 [facility] [address] [facility] [place] [id number] [address] [place] [phone] Aug, [facility] [address] [facility] [place] [id number] [address] [place] [phone] Jul, Paroxysmal tachycardia I47.9 [place] [address] [id number] [address] [place] [phone] Jul, Paroxysmal tachycardia I47.9 [facility] [address] [id number] [address] [place] [phone] Jun, [facility] [address] [id number] [address] [place] [phone] Jun, Major depressive disorder in partial remission F32.4 ; FRANCIS (generalized anxiety disorder) F41.1 and Conversion disorder (or hysterical neurosis, conversion type) F44.9 [facility] [address] [id number] [address] [place] [phone] May, Pelvic pain R10.2 [facility] [address] [id number] [address] [place] [phone] Apr, Gastroenteritis K52.9 [facility] [address] [id number] [address] [place] [phone] Apr, Blood in urine R31.9 and Acu te cystitis with hematuria N30.01 [facility] [address] [id number] [address] [place] [phone] Apr, Major depressive disorder in partial remission F32.4 ; FRANCIS (generalized anxiety disorder) F41.1 and Conversion disorder (or hysterical neurosis, conversion type) F44.9 [facility] [address] [facility] [place] [id number] [address] [place] [phone] Apr, [facility] [address] [facility] [place] [id number] [address] [place] [phone] Apr, Abnormal mammogram R92.8 [facility] [address] [facility] [place] [id number] [address] [place] [phone] Mar, [facility] [address] [facility] [place] [id number] [address] [place] [phone] Mar, Gastroenteritis K52.9 and Se izure disorder G40.909 [facility] [address] [id number] [address] [place] [phone] Dec, [facility] [address] [id number] [address] [place] [phone] Dec, Other headache syndrome G44. 89 [facility] [address] [id number] [address] [place] [phone] Dec, [facility] [address] [id number] [address] [place] [phone] Dec, Thoracic disc herniation M51 .24 [facility] [address] [id number] [address] [place] [phone] Dec, [facility] [address] [id number] [address] [place] [phone] Nov, Major depressive disorder in partial remission F32.4 and FRANCIS (generalized anxiety disorder) F41.1 [facility] [address] [id number] [address] [place] [phone] Nov, [facility] [address] [id number] [address] [place] [phone] Nov, Dorsalgia, unspecified M54.9 [facility] [address] [id number] [address] [place] [phone] Oct, [facility] [address] [id number] [address] [place] [phone] September, [facility] [address] [id number] [address] [place] [phone] Aug, [facility] [address] [id number] [address] [place] [phone] Aug, Major depressive disorder in partial remission F32.4 and FRANCIS (generalized anxiety disorder) F41.1 [facility] [address] [id number] [address] [place] [phone] Aug, [facility] [address] [id number] [address] [place] [phone] Jul, Abnormal mammogram R92.8 [facility] [address] [id number] [address] [place] [phone] Jul, [facility] [address] [id number] [address] [place] [phone] Jul, [facility] [address] [id number] [address] [place] [phone] Jul, [facility] [address] [id number] [address] [place] [phone] Jul, [facility] [address] [id number] [address] [place] [phone] Jul, [facility] [address] [id number] [address] [place] [phone] Jul, [facility] [address] [id number] [address] [place] [phone] Jun, Major depressive disorder in partial remission F32.4 and FRANCIS (generalized anxiety disorder) F41.1 [facility] [address] [id number] [address] [place] [phone] Jun, [facility] [address] [id number] [address] [place] [id number] May, [facility] [address] [id number] [address] [place] [id number] Apr, [facility] [address] [id number] [address] [place] [id number] Mar, Major depressive disorder, r ecurrent episode, moderate F33.1 ; PTSD (post-traumatic stress disorder) F43.10 and FRANCIS (generalized anxiety disorder) F41.1 [facility] [address] [id number] [address] [place] [id number] Mar, [facility] [address] [id number] [address] [place] [id number] Mar, [facility] [address] [id number] [address] [place] [id number] 07 Mar, 2015 [facility] [place] [address] [id number] [address] [place] [phone] 07 Mar, 2015 [facility] [place] [address] [id number] [address] [place] [id number] 23 Jan, 2015 [facility] [place] [address] [id number] [address] [place] [id number] 15 Jan, 2015 [facility] [address] [id number] [address] [place] [id number] 15 Jan, 2015 [facility] [place] [address] [id number] [address] [place] [id number] 14 Jan, 2015 Thoracic disc herniation 722 .11 [facility] [place] [address] [id number] [address] [place] [address] Dec, [facility] [place] [address] [id number] [address] [place] [address] Dec, [facility] [place] [address] [id number] [address] [place] [address] Dec, [facility] [place] [address] [id number] [address] [place] [id number] 16 Nov, 2014 [facility] [place] [address] [id number] [address] [place] [address] 14 Nov, 2014 Generalized anxiety disorder 300.02 ; Posttraumatic stress disorder 309.81 and Major depressive disorder, recurrent episode, moderate 296.32 [facility] [place] [address] [id number] [address] [place] [id number] Nov, [facility] [place] [address] [id number] [address] [place] [address] Nov, [facility] [place] [address] [id number] [address] [place] [address] Oct, [facility] [place] [address] [id number] [address] [place] [id number] 05 Oct, 2014 [facility] [address] [id number] [address] [place] [address], [place] [address] 04 Oct, 2014 [facility] [address] [id number] [address] [place] [address], [place] [address] September, [facility] [address] [id number] [address] [place] [address], [place] [address] September, [facility] [address] [id number] [address] [place] [address], [place] [address] Aug, [facility] [address] [id number] [address] [place] [address], [place] [address] Aug, [facility] [address] [id number] [address] [place] [address], [place] [address] Jul, [facility] [address] [id number] [address] [place] [address], [place] [address] Jul, [facility] [address] [id number] [address] [place] [address], [place] [address] Jul, [facility] [address] [id number] [address] [place] [address], [place] [address] 17 Jul, 2014 [facility] [address] [id number] [address] [place] [address], [place] [address] Jul, [facility] [address] [id number] [address] [place] [address], [place] [address] Jul, [facility] [address] [id number] [address] [place] [address], [place] [address] Jul, [facility] [address] [id number] [address] [place] [address], [place] [address] Jul, [facility] [address] [id number] [address] [place] [address], [place] [address] Jul, [facility] [address] [id number] [address] [place] [address], [place] [address] Jul, [facility] [address] [id number] [address] [place] [address], [place] [address] Jun, [facility] [address] [id number] [address] [place] [address], [place] [address] Jun, [facility] [address] [id number] [address] [place] [address], [place] [address] Jun, [facility] [address] [id number] [address] [place] [address], [place] [address] May, [facility] [address] [id number] [address] [place] [address] Apr, [facility] [address] [id number] [address] [place] [address], [place] [address] Apr, [facility] [address] [id number] [address] [place] [phone] Apr, [facility] [address] [id number] [address] [place] [address], [place] [address] Apr, [facility] [address] [id number] [address] [place] [address], [place] [address] Apr, [facility] [address] [id number] [address] [place] [address], [place] [address] Apr, [facility] [address] [id number] [address] [place] [address], [place] [address] Apr, [facility] [address] [id number] [address] [place] [address], [place] [address] Apr, [facility] [address] [id number] [address] [place] [address] Mar, [facility] [address] [id number] [address] [place] [address], [place] [address] Mar, [facility] [address] [id number] [address] [place] [address], [place] [address] Mar, [facility] [address] [id number] [address] [place] [address] Mar, [facility] [address] [id number] [address] [place] [address], [place] [address] 24 Mar, 2014 [facility] [address] [id number] [address] [place] [address], [place] [address] 24 Mar, 2014 [facility] [address] [id number] [address] [place] [address], [place] [address] 24 Mar, 2014 [facility] [address] [id number] [address] [place] [address], [place] [address] Mar, [facility] [address] [id number] [address] [place] [address], [place] [address] Mar, [facility] [address] [id number] [address] [place] [address], [place] [address] Mar, [facility] [address] [id number] [address] [place] [address], [place] [address] 17 Mar, 2014 [facility] [address] [id number] [address] [place] [address], [place] [address] Mar, [facility] [address] [id number] [address] [place] [address], [place] [address] 14 Mar, 2014 [facility] [address] [id number] [address] [place] [address], [place] [address] Mar, [facility] [address] [id number] [address] [place] [address], [place] [address] 07 Mar, 2014 [facility] [address] [id number] [address] [place] [address], [place] [address] Mar, [facility] [address] [id number] [address] [place] [address], [place] [address] Mar, [facility] [address] [id number] [address] [place] [address], [place] [address] 19 Jan, 2013 [facility] [address] [id number] [address] [place] [address], [place] [address] 19 Jan, 2013 [facility] [address] [id number] [address] [place] [address], [place] [address] 09 Jan, 2013 [facility] [address] [id number] [address] [place] [address], [place] [address] 09 Sep, 2013 [facility] [address] [id number] [address] [place] [address], [place] [address] 05 Sep, 2013 [facility] [address] [id number] [address] [place] [address], [place] [address] 05 Sep, 2013 [facility] [address] [id number] [address] [place] [address], [place] [address] 05 Sep, 2013 [facility] [address] [id number] [address] [place] [address], [place] [address] 05 Sep, 2013 [facility] [address] [id number] [address] [place] [address], [place] [address] 03 Jan, 2013 [facility] [address] [id number] [address] [place] [address], [place] [address] Jan, 2013 [facility] [address] [id number] [address] [place] [address], [place] [address] Jan, 2013 [facility] [address] [id number] [address] [place] [address], [place] [address] Jan, 2013 [facility] [address] [id number] [address] [place] [address], [place] [address] Jan, 2013 [facility] [address] [id number] [address] [place] [address], [place] [address] Dec, [facility] [address] [id number] [address] [place] [address], [place] [address] Dec, [facility] [address] [id number] [address] [place] [address], [place] [address] Dec, [facility] [address] [id number] [address] [place] [address], [place] [address] Dec, [facility] [address] [id number] [address] [place] [address], [place] [address] Dec, [facility] [address] [id number] [address] [place] [address], [place] [address] Dec, [facility] [address] [facility] [address] [id number] Dec, [facility] [address] [id number] Dec, [facility] [address] [id number] [address] [place] [address], [place] [address] Dec, [facility] [address] [id number] [address] [place] [address], [place] [address] Dec, [facility] [address] [id number] [address] [place] [address], [place] [address] Dec, [facility] [address] [id number] [address] [place] [address], [place] [address] Dec, [facility] [address] [id number] [address] [place] [address], [place] [address] Nov, [facility] [address] [id number] [address] [place] [address], [place] [address] Nov, [facility] [address] [id number] [address] [place] [address], [place] [address] Nov, [facility] [address] [id number] [address] [place] [address], [place] [address] Nov, [facility] [address] [id number] [address] [place] [address], [place] [address] Nov, [facility] [address] [id number] [address] [place] [address], [place] [address] Nov, [facility] [address] [id number] [address] [place] [address], [place] [address] Nov, [facility] [address] [id number] [address] [place] [address], [place] [address] Nov, [facility] [address] [id number] [address] [place] [address], [place] [address] Nov, [facility] [address] [id number] [address] [place] [address], [place] [address] Nov, [facility] [address] [id number] [facility] [place] [address] Nov, [facility] [address] [id number] [address] [place] [address], [place] [address] Nov, [facility] [address] [id number] [address] [place] [address], [place] [address] Nov, [facility] [address] [id number] [address] [place] [address], [place] [address] Oct, [facility] [address] [id number] [address] [place] [address], [place] [address] Oct, [facility] [address] [id number] [address] [place] [address], [place] [address] Oct, [facility] [address] [id number] [address] [place] [address], [place] [address] Oct, [facility] [address] [id number] [address] [place] [address], [place] [address] Oct, [facility] [address] [id number] [address] [place] [address], [place] [address] Oct, [facility] [address] [id number] [address] [place] [address], [place] [address] Oct, [facility] [address] [id number] [address] [place] [address], [place] [address] Oct, [facility] [address] [id number] [address] [place] [address], [place] [address] Oct, [facility] [address] [id number] [address] [place] [address], [place] [address] Oct, [facility] [address] [id number] [address] [place] [address], [place] [address] Oct, [facility] [address] [id number] [address] [place] [address], [place] [address] Oct, [facility] [address] [id number] [facility] [place] [address] September, [facility] [address] [id number] [facility] [place] [address] September, [facility] [address] [id number] [facility] [place] [address] September, [facility] [address] [id number] [address] [place] [address], [place] [address] September, [facility] [address] [id number] [address] [place] [address], [place] [address] Aug, [facility] [address] [id number] [address] [place] [address], [place] [address] Aug, [facility] [address] [id number] [address] [place] [address], [place] [address] Aug, [facility] [address] [id number] [address] [place] [address], [place] [address] Aug, [facility] [address] [id number] [address] [place] [address], [place] [address] Aug, [facility] [address] [id number] [address] [place] [address], [place] [address] Aug, [facility] [address] [id number] [address] [place] [address], [place] [address] Aug, [facility] [address] [id number] [address] [place] [address], [place] [address] Jul, [facility] [address] [id number] [address] [place] [address], [place] [address] Jul, [facility] [address] [id number] [address] [place] [address], [place] [address] Jul, [facility] [address] [id number] [address] [place] [address], [place] [address] Jul, [facility] [address] [id number] [address] [place] [address], [place] [address] Jul, [facility] [address] [id number] [facility] [place] [address] 19 Jul, 2013 [facility] [address] [id number] [address] [place] [address], [place] [address] 18 Jul, 2013 [facility] [address] [id number] [facility] [place] [address] 18 Jul, 2013 [facility] [address] [id number] [address] [place] [address], [place] [address] 18 Jul, 2013 [facility] [address] [id number] [address] [place] [address], [place] [address] Jul, [facility] [address] [id number] [address] [place] [address], [place] [address] 18 Jul, 2013 [facility] [address] [id number] [address] [place] [address], [place] [address] 18 Jul, 2013 [facility] [address] [id number] [address] [place] [address], [place] [address] 14 Jul, 2013 [facility] [address] [id number] [address] [place] [address], [place] [address] 14 Jul, 2013 [facility] [address] [id number] [address] [place] [address], [place] [address] Jul, [facility] [address] [id number] [address] [place] [address], [place] [address] Jul, [facility] [address] [id number] [address] [place] [address], [place] [address] Jul, [facility] [address] [id number] [address] [place] [address], [place] [address] Jul, [facility] [address] [id number] [address] [place] [address], [place] [address] Jun, [facility] [address] [id number] [address] [place] [address], [place] [address] Jun, [facility] [address] [id number] [address] [place] [address], [place] [address] 15 Jun, 2013 [facility] [address] [id number] [address] [place] [address], [place] [address] 15 Jun, 2013 [facility] [address] [id number] [address] [place] [address], [place] [address] 14 Jun, 2013 [facility] [address] [id number] [address] [place] [address], [place] [address] 14 Jun, 2013 [facility] [address] [id number] [address] [place] [address], [place] [address] 14 Jun, 2013 [facility] [address] [id number] [address] [place] [address], [place] [address] 14 Jun, 2013 [facility] [address] [id number] [address] [place] [address], [place] [address] 14 Jun, 2013 [facility] [address] [id number] [address] [place] [address], [place] [address] 14 Jun, 2013 [facility] [address] [id number] [address] [place] [address], [place] [address] 27 May, 2013 [facility] [address] [id number] [address] [place] [address], [place] [address] 27 May, 2013 [facility] [address] [id number] [address] [place] [address], [place] [address] 26 May, 2013 [facility] [address] [id number] [address] [place] [address], [place] [address] 19 May, 2013 [facility] [address] [id number] [address] [place] [address], [place] [address] 19 May, 2013 [facility] [address] [id number] [address] [place] [address], [place] [address] 16 May, 2013 [facility] [address] [id number] [address] [place] [address], [place] [address] 16 May, 2013 [facility] [address] [id number] [address] [place] [address], [place] [address] 16 May, 2013 [facility] [address] [id number] [address] [place] [address], [place] [address] 16 May, 2013 [facility] [address] [id number] [address] [place] [address], [place] [address] 13 May, 2013 [facility] [address] [id number] [address] [place] [address], [place] [address] 13 May, 2013 [facility] [address] [id number] [address] [place] [address], [place] [address] 11 May, 2013 [facility] [address] [id number] [address] [place] [address], [place] [address] 20 Apr, 2013 [facility] [address] [id number] [address] [place] [address], [place] [address] 18 Apr, 2013 [facility] [address] [id number] [address] [place] [address], [place] [address] 18 Apr, 2013 [facility] [address] [id number] [address] [place] [address], [place] [address] Apr, [facility] [address] [id number] [address] [place] [address], [place] [address] Apr, [facility] [address] [id number] [address] [place] [address], [place] [address] 08 Apr, 2013 [facility] [address] [id number] [address] [place] [address], [place] [address] 08 Apr, 2013 [facility] [address] [id number] [address] [place] [address], [place] [address] 07 Apr, 2013 [facility] [address] [id number] [address] [place] [address], [place] [address] Apr, [facility] [address] [id number] [address] [place] [address], [place] [address] 07 Apr, 2013 [facility] [address] [id number] [address] [place] [address], [place] [address] 07 Apr, 2013 [facility] [address] [id number] [address] [place] [address] [place] [address] Mar, [facility] [address] [id number] [address] [place] [address], [place] [address] Mar, [facility] [address] [id number] [address] [place] [address], [place] [address] Mar, [facility] [address] [id number] [address] [place] [address], [place] [address] Mar, [facility] [address] [id number] [address] [place] [address], [place] [address] Mar, [facility] [address] [id number] [address] [place] [address], [place] [address] Mar, [facility] [address] [id number] [address] [place] [address], [place] [address] Mar, [facility] [address] [id number] [address] [place] [address], [place] [address] Mar, [facility] [address] [id number] [address] [place] [address], [place] [address] 18 Mar, 2013 [facility] [address] [id number] [address] [place] [address], [place] [address] 15 Mar, 2013 [facility] [address] [id number] [address] [place] [id number] 15 Mar, 2013 [facility] [address] [id number] [address] [place] [address], [place] [address] Mar, [facility] [address] [id number] [address] [place] [id number] 30 Jan, 2012 [facility] [address] [id number] [address] [place] [address], [place] [address] 25 Jan, 2012 [facility] [address] [id number] [address] [place] [address], [place] [address] 20 Jan, 2012 [facility] [address] [id number] [address] [place] [id number] 10 Jan, 2012 [facility] [address] [id number] [facility] [place] [address] Dec, [facility] [address] [id number] [address] [place] [address], [place] [address] Dec, [facility] [address] [id number] [address] [place] [address], [place] [address] Dec, [facility] [address] [id number] [address] [place] [address], [place] [address] Dec, [facility] [address] [id number] [address] [place] [address], [place] [address] Dec, [facility] [address] [id number] [address] [place] [address], [place] [address] Dec, [facility] [address] [id number] [address] [place] [address], [place] [address] Dec, [facility] [address] [id number] [address] [place] [address], [place] [address] Dec, [facility] [address] [id number] [address] [place] [address], [place] [address] Dec, [facility] [address] [id number] [address] [place] [address], [place] [address] Nov, [facility] [address] [id number] [address] [place] [address], [place] [address] Nov, [facility] [address] [id number] [address] [place] [address], [place] [address] Nov, [facility] [address] [id number] [address] [place] [address], [place] [address] Nov, [facility] [address] [id number] [address] [place] [address], [place] [address] Nov, [facility] [address] [id number] [address] [place] [address], [place] [address] Nov, [facility] [address] [id number] [address] [place] [address], [place] [address] Nov, [facility] [address] [id number] [facility] [place] [address] Nov, [facility] [address] [id number] [address] [place] [address], [place] [address] Oct, [facility] [address] [id number] [address] [place] [address], [place] [address] Oct, [facility] [address] [id number] [address] [place] [address], [place] [address] Oct, [facility] [address] [id number] [address] [place] [address], [place] [address] Oct, [facility] [address] [id number] [address] [place] [address], [place] [address] Oct, [facility] [address] [id number] [address] [place] [address], [place] [address] Oct, [facility] [address] [id number] [address] [place] [address], [place] [address] Oct, [facility] [address] [id number] [address] [place] [address], [place] [address] Oct, [facility] [address] [id number] [address] [place] [address], [place] [address] Oct, [facility] [address] [id number] [address] [place] [address], [place] [address] 18 Oct, 2012 [facility] [address] [id number] [address] [place] [address], [place] [address] 17 Oct, 2012 [facility] [address] [id number] [address] [place] [address], [place] [address] 14 Oct, 2012 [facility] [address] [id number] [address] [place] [address], [place] [address] 07 Oct, 2012 [facility] [address] [id number] [address] [place] [address], [place] [address] September, [facility] [address] [id number] [address] [place] [address], [place] [address] September, [facility] [address] [id number] [address] [place] [address], [place] [address] September, [facility] [address] [id number] [address] [place] [address], [place] [address] Aug, [facility] [address] [id number] [address] [place] [address], [place] [address] Aug, [facility] [address] [id number] [address] [place] [address], [place] [address] Aug, [facility] [address] [id number] [address] [place] [address], [place] [address] Aug, [facility] [address] [id number] [address] [place] [address], [place] [address] Aug, [facility] [address] [id number] [address] [place] [address], [place] [address] Aug, [facility] [address] [id number] [address] [place] [address], [place] [address] Aug, [facility] [address] [id number] [address] [place] [address], [place] [address] Jul, [facility] [address] [id number] [address] [place] [address], [place] [address] Jul, [facility] [address] [id number] [address] [place] [address], [place] [address] Jul, [facility] [address] [id number] [address] [place] [address], [place] [address] Jul, [facility] [address] [id number] [address] [place] [address], [place] [address] Jul, [facility] [address] [id number] [address] [place] [address], [place] [address] Jul, [facility] [address] [id number] [address] [place] [address], [place] [address] Jul, [facility] [address] [id number] [address] [place] [address], [place] [address] Jul, [facility] [address] [id number] [address] [place] [address], [place] [address] Jul, [facility] [address] [id number] [address] [place] [address], [place] [address] Jul, [facility] [address] [id number] [address] [place] [address], [place] [address] Jul, [facility] [address] [id number] [address] [place] [address], [place] [address] Jul, [facility] [address] [id number] [address] [place] [address], [place] [address] Jul, [facility] [address] [id number] [address] [place] [address], [place] [address] Jun, [facility] [address] [id number] [address] [place] [address], [place] [address] Jun, [facility] [address] [id number] [address] [place] [address], [place] [address] Jun, [facility] [address] [id number] [address] [place] [address], [place] [address] Jun, [facility] [address] [id number] [address] [place] [address], [place] [address] 15 Jun, 2012 [facility] [address] [id number] [address] [place] [address], [place] [address] 14 Jun, 2012 [facility] [address] [id number] [address] [place] [address], [place] [address] Jun, [facility] [address] [id number] [address] [place] [address], [place] [address] May, [facility] [address] [id number] [address] [place] [address], [place] [address] May, [facility] [address] [id number] [address] [place] [address], [place] [address] May, [facility] [address] [id number] [address] [place] [address], [place] [address] May, [facility] [address] [id number] [address] [place] [address], [place] [address] May, [facility] [address] [id number] [address] [place] [address], [place] [address] May, [facility] [address] [id number] [address] [place] [address], [place] [address] May, [facility] [address] [id number] [address] [place] [address], [place] [address] May, [facility] [address] [id number] [address] [place] [address], [place] [address] May, [facility] [address] [id number] [address] [place] [address], [place] [address] May, [facility] [address] [id number] [address] [place] [address], [place] [address] Apr, [facility] [address] [id number] [address] [place] [address], [place] [address] Apr, [facility] [address] [id number] [address] [place] [address], [place] [address] Apr, [facility] [address] [id number] [address] [place] [address], [place] [address] Apr, [facility] [address] [id number] [address] [place] [address], [place] [address] Apr, [facility] [address] [id number] [address] [place] [address], [place] [address] Apr, [facility] [address] [id number] [address] [place] [address], [place] [address] Apr, [facility] [address] [id number] [address] [place] [address], [place] [address] Apr, [facility] [address] [id number] [address] [place] [address], [place] [address] Apr, [facility] [address] [id number] [address] [place] [address], [place] [address] Apr, [facility] [address] [id number] [address] [place] [address], [place] [address] Apr, [facility] [address] [id number] [address] [place] [address], [place] [address] Apr, [facility] [address] [id number] [address] [place] [address], [place] [address] Mar, [facility] [address] [id number] [address] [place] [address], [place] [address] Mar, [facility] [address] [id number] [address] [place] [address], [place] [address] Mar, [facility] [address] [id number] [address] [place] [address], [place] [address] Mar, [facility] [address] [id number] [address] [place] [address], [place] [address] Mar, [facility] [address] [id number] [address] [place] [address] Mar, [facility] [address] [id number] [address] [place] [address] Mar, [facility] [address] [id number] [address] [place] [address] 30 Mar, 2011 [facility] [address] [id number] [address] [place] [address], [place] [address] Mar, [facility] [address] [id number] [address] [place] [address], [place] [address] Mar, [facility] [address] [id number] [address] [place] [address] 16 Mar, 2012 [facility] [address] [id number] [address] [place] [address] 16 Mar, 2012 [facility] [address] [id number] [address] [place] [address], [place] [address] 12 Mar, 2012 [facility] [address] [id number] [address] [place] [address], [place] [address] 12 Mar, 2012 [facility] [address] [id number] [address] [place] [address], [place] [address] 03 Mar, 2012 [facility] [address] [id number] [address] [place] [address], [place] [address] 02 Mar, 2012 [facility] [address] [id number] [address] [place] [address], [place] [address] 25 Jan, 2012 [facility] [address] [id number] [address] [place] [address], [place] [address] 24 Jan, 2012 [facility] [address] [id number] [address] [place] [address], [place] [address] 22 Jan, 2012 [facility] [address] [id number] [address] [place] [address], [place] [address] 22 Jan, 2012 [facility] [address] [id number] [address] [place] [address], [place] [address] 21 Jan, 2012 [facility] [address] [id number] [address] [place] [address], [place] [address] 18 Jan, 2012 [facility] [address] [id number] [address] [place] [address], [place] [address] 14 Jan, 2012 [facility] [address] [id number] [address] [place] [address], [place] [address] 07 Jan, 2012 [facility] [address] [id number] [address] [place] [address], [place] [address] 15 Dec, 2011 [facility] [address] [id number] [address] [place] [address], [place] [address] 10 Dec, 2011 [facility] [address] [id number] [address] [place] [address], [place] [address] 09 Dec, 2011 [facility] [address] [id number] [facility] [place] [address] Dec, [facility] [address] [id number] [address] [place] [address], [place] [address] Dec, [facility] [address] [id number] [address] [place] [address], [place] [address] Dec, [facility] [address] [id number] [address] [place] [address], [place] [address] Dec, [facility] [address] [id number] [address] [place] [address], [place] [address] Nov, [facility] [address] [id number] [address] [place] [address], [place] [address] Oct, [facility] [address] [id number] [address] [place] [address], [place] [address] Aug, [facility] [address] [id number] [address] [place] [address], [place] [address] Jul, [facility] [address] [id number] [address] [place] [address], [place] [address] Jul, [facility] [address] [id number] [address] [place] [address], [place] [address] 16 Jul, 2011 [facility] [address] [id number] [address] [place] [address], [place] [address] 14 Jul, 2011 [facility] [address] [id number] [address] [place] [address], [place] [address] 07 Jul, 2011 [facility] [address] [id number] [address] [place] [address], [place] [address] 02 Jul, 2011 [facility] [address] [id number] [address] [place] [address], [place] [address] 21 Jul, 2011 [facility] [address] [id number] [address] [place] [address], [place] [address] 15 Jul, 2011 [facility] [address] [id number] [address] [place] [address], [place] [address] 13 Jul, 2011 [facility] [address] [id number] [address] [place] [address], [place] [address] Jul, [facility] [address] [id number] [address] [place] [address], [place] [address] Jul, [facility] [address] [id number] [address] [place] [address], [place] [address] Jun, [facility] [address] [id number] [address] [place] [address], [place] [address] Jun, [facility] [address] [id number] [address] [place] [address], [place] [address] Jun, [facility] [address] [id number] [address] [place] [address], [place] [address] Jun, [facility] [address] [id number] [address] [place] [address], [place] [address] Jun, [facility] [address] [id number] [address] [place] [address], [place] [address] Jun, [facility] [address] [id number] [address] [place] [address], [place] [address] Jun, [facility] [address] [id number] [address] [place] [address], [place] [address] May, [facility] [address] [id number] [address] [place] [address], [place] [address] May, [facility] [address] [id number] [address] [place] [address], [place] [address] May, [facility] [address] [id number] [address] [place] [address], [place] [address] May, [facility] [address] [id number] [address] [place] [address], [place] [address] May, [facility] [address] [id number] [address] [place] [address], [place] [address] May, [facility] [address] [id number] [address] [place] [address] May, [facility] [address] [id number] [address] [place] [id number] May, [facility] [address] [id number] [address] [place] [address] May, [facility] [address] [id number] [address] [place] [address] May, [facility] [address] [id number] [address] [place] [phone] Apr, [facility] [address] [id number] [address] [place] [phone] Apr, [facility] [address] [id number] [address] [place] [address] Apr, [facility] [address] [id number] [address] [place] [address] Apr, [facility] [address] [id number] [address] [place] [address] Mar, [facility] [address] [id number] [address] [place] [address] Mar, [facility] [address] [id number] [address] [place] [phone] Mar, [facility] [address] [id number] [address] [place] [id number] Mar, IMMUNIZATIONS No Known Immunizations SOCIAL HISTORY Never Assessed REASON FOR VISIT PLAN OF CARE VITAL SIGNS MEDICATIONS Unknown Medications RESULTS No Results PROCEDURES Procedure Date Ordered Result Body Site PSYTX PT&/FAMILY 45 MINUTES November 19, 2012 INSTRUCTIONS MEDICATIONS ADMINISTERED No Known Medications [...]
--- OUTSIDE RECORDS SUMMARY | 2020-01-03 18:07 | XMS REPORT ---
Author Author Pattie ARGUETA [facility] Address [address] [place] [address] Care Team Providers Care Artistic Director Name Role Phone KIKA ARGUETA Unavailable PROBLEMS Type Condition ICD9-CM Code LXE13-FS Code Onset Dates Condition S tatus SNOMED Code Problem Major depressive disorder in partial remission F32 .4 Active 11126712 Problem FRANCIS (generalized anxiety disorder) F41.1 Active 35769173 Problem Conversion disorder (or hysterical neurosis, conversion ty pe) F44.9 Active 66615832 Problem Thoracic disc herniation M51.24 Activ e 331614792 Problem Slow transit constipation K59.01 Acti ve 59180742 Problem Constipation, unspecified constipation type K59.00 Active 91485643 Problem Mild episode of recurrent major depressive disorder F33.0 Active 216790060 Problem High blood pressure I10 Active 86399861 Problem Paroxysmal tachycardia I47.9 Active 69535996 Problem Nonadherence to medication Z91.14 Act vivian 405891298 Problem Seizure disorder G40.909 Active 128 549325 Problem Restless leg syndrome G25.81 Active 65986177 Problem Other chronic pain G89.29 Active 8 9231109 Problem Mild intermittent asthma without complication J45. 20 Active 837498112 Problem Obesity (BMI 30.0-34.9) E66.9 Active [id number] ALLERGIES No Information ENCOUNTERS Encounter Location Date Diagnosis [facility] [address] [facility] [id number] [address] [place] [phone] September, [facility] [address] [facility] [id number] [address] [place] [phone] September, [facility] [address] [facility] [id number] [address] [place] [phone] September, [facility] [address] [facility] [id number] [address] [place] [phone] Aug, [facility] [address] [id number] [place] [id number] Aug, Dental examination Z01.20 [facility] [address] [id number] [address] [place] [id number] 15 Aug, 2019 Dental examination Z01.20 an d Caries K02.9 [facility] [address] [facility] [id number] [address] [place] [phone] Aug, [facility] [address] [id number] [address] [place] [phone] Aug, [facility] [address] [facility] [id number] [address] [place] [phone] Aug, Other chronic pain G89.29 an d Back muscle spasm M62.830 [facility] [address] [facility] [id number] [address] [place] [phone] Aug, [facility] [address] [facility] [id number] [address] [place] [phone] Aug, Major depressive disorder in partial remission F32.4 ; FRANCIS (generalized anxiety disorder) F41.1 ; Restless leg syndrome G25.81 and Nonadherence to medication Z91.14 [facility] [address] [facility] [id number] [address] [place] [phone] Aug, [facility] [address] [facility] [id number] [address] [place] [phone] Jul, [facility] [address] [facility] [id number] [address] [place] [phone] 09 Jul, 2019 [facility] [address] [facility] [id number] [address] [place] [phone] 27 Jul, 2019 Major depressive disorder in partial remission F32.4 ; FRANCIS (generalized anxiety disorder) F41.1 ; Restless leg syndrome G25.81 and High blood pressure I10 [facility] [address] [facility] [id number] [address] [place] [phone] Jul, [facility] [address] [id number] [address] [place] [phone] Jul, [facility] [address] [id number] [address] [place] [phone] Jun, [facility] [address] [id number] [address] [place] [phone] May, [facility] [address] [id number] [address] [place] [phone] Apr, [facility] [address] [id number] [address] [place] [phone] Apr, [facility] [address] [id number] [address] [place] [phone] Mar, [facility] [address] [facility] [id number] [address] [place] [phone] Mar, Major depressive disorder in partial remission F32.4 ; FRANCIS (generalized anxiety disorder) F41.1 and Restless leg syndrome G25.81 [facility] [address] [id number] [address] [place] [phone] Mar, Obesity (BMI 30.0-34.9) E66. 9 [facility] [address] [id number] [address] [place] [phone] Jan, [facility] [address] [facility] [id number] [address] [place] [phone] Jan, Burn T30.0 [facility] [address] [id number] [address] [place] [phone] Dec, [facility] [address] [facility] [id number] [address] [place] [phone] Nov, [facility] [address] [facility] [id number] [address] [place] [phone] Nov, [facility] [address] [id number] [address] [place] [id number] Nov, Dental examination Z01.20 [facility] [address] [facility] [id number] [address] [place] [phone] September, [facility] [id number] [place] [id number] September, Decay, teeth K02.9 and Denta l examination Z01.20 [facility] [address] [place] [id number] [address] [place] [id number] September, Dental examination Z01.20 [facility] [address] [facility] [id number] [place] [address] September, FRANCIS (generalized anxiety dis order) F41.1 ; Major depressive disorder in partial remission F32.4 and Restless leg syndrome G25.81 [place] [address] [address] Aug, [place] [address] [address] Jul, [place] [address] [address] Jul, Encounter to discuss test re sults Z71.2 [place] [address] [address] Jul, Pelvic pain R10.2 ; Screenin g for breast cancer Z12.31 and Obesity (BMI 30.0-34.9) E66.9 [place] [address] [place] [id number] [address] [place] [address] Jul, Mild intermittent asthma wit hout complication J45.20 [place] [address] [place] [id number] [place] [address] Jul, Major depressive disorder in partial remission F32.4 and FRANCIS (generalized anxiety disorder) F41.1 [place] [address] [place] [id number] [address] [place] [phone] Jul, [place] [address] [place] [id number] [address] [place] [address] Jun, [facility] [address] [id number] [address] [place] [phone] May, Major depressive disorder in partial remission F32.4 ; FRANCIS (generalized anxiety disorder) F41.1 and Restless leg syndrome G25.81 [facility] [address] [id number] [address] [place] [phone] Apr, [facility] [address] [id number] [address] [place] [phone] Mar, [facility] [address] [id number] [address] [place] [phone] Jan, Pain in thoracic spine M54.6 and Other chronic pain G89.29 [facility] [address] [id number] [address] [place] [address] Jan, [facility] [address] [id number] [address] [place] [phone] Jan, Mild episode of recurrent ma saray depressive disorder F33.0 ; FRANCIS (generalized anxiety disorder) F41.1 and Restless leg syndrome G25.81 [facility] [address] [id number] [address] [place] [phone] Dec, [facility] [address] [id number] [address] [place] [id number] Dec, Hospital discharge follow-up Z09 [facility] [address] [id number] [address] [place] [phone] Nov, [facility] [address] [id number] [address] [place] [phone] Nov, [facility] [address] [facility] [id number] [address] [place] [address] September, [facility] [address] [id number] [address] [place] [phone] September, [facility] [address] [facility] [id number] [address] [place] [phone] September, Major depressive disorder in partial remission F32.4 ; FRANCIS (generalized anxiety disorder) F41.1 and Restless leg syndrome G25.81 [facility] [address] [facility] [id number] [address] [place] [address] September, [facility] [address] [facility] [id number] [address] [place] [phone] Jul, [place] [address] [facility] [id number] [address] [place] [address] Jul, Dorsalgia, unspecified M54.9 [place] [address] [facility] [id number] [address] [place] [phone] Jul, Mild episode of recurrent ma saray depressive disorder F33.0 and FRANCIS (generalized anxiety disorder) F41.1 [place] [address] [facility] [id number] [address] [place] [phone] May, [facility] [address] [facility] [id number] [address] [place] [address] May, Dysuria R30.0 and Acute cyst itis with hematuria N30.01 [place] [address] [facility] [id number] [address] [place] [address] Apr, [facility] [address] [facility] [id number] [address] [place] [phone] Apr, Major depressive disorder in partial remission F32.4 and FRANCIS (generalized anxiety disorder) F41.1 [place] [address] [facility] [id number] [address] [place] [address] Mar, Paroxysmal tachycardia I47.9 [place] [address] [facility] [id number] [address] [place] [address] Mar, Paroxysmal tachycardia I47.9 and Pain of left lower extremity M79.605 [place] [address] [facility] [id number] [address] [place] [address] Mar, FRANCIS (generalized anxiety dis order) F41.1 and Major depressive disorder in partial remission F32.4 [facility] [address] [place] [id number] [place] [phone] Jan, [facility] [address] [facility] [id number] [address] [place] [phone] Jan, [facility] [address] [place] [id number] [place] [address] Jan, [facility] [address] [facility] [id number] [place] [phone] Dec, Constipation, unspecified co nstipation type K59.00 [place] [address] [place] [id number] [place] [address] Dec, [facility] [address] [place] [id number] [place] [address] Nov, [facility] [address] [address] Nov, Major depressive disorder in partial remission F32.4 and FRANCIS (generalized anxiety disorder) F41.1 [facility] [address] [place] [id number] [address] [place] [address] Oct, Abdominal pain R10.9 and Slo w transit constipation K59.01 [place] [address] [place] [id number] [place] [address] Aug, Major depressive disorder in partial remission F32.4 ; FRANCIS (generalized anxiety disorder) F41.1 ; Conversion disorder (or hysterical neurosis, conversion type) F44.9 ; Dorsalgia, unspecified M54.9 and Long-term use of high-risk medication Z79.899 [facility] [address] [place] [id number] [address] [place] [phone] Aug, [facility] [address] [place] [id number] [address] [place] [address] Jul, Paroxysmal tachycardia I47.9 [place] [address] [id number] [address] [place] [phone] Jul, Paroxysmal tachycardia I47.9 [facility] [address] [id number] [address] [place] [phone] Jun, [facility] [address] [id number] [address] [place] [phone] Jun, Major depressive disorder in partial remission F32.4 ; FRANCIS (generalized anxiety disorder) F41.1 and Conversion disorder (or hysterical neurosis, conversion type) F44.9 [facility] [address] [id number] [address] [place] [address] May, Pelvic pain R10.2 [facility] [address] [id number] [address] [place] [phone] Apr, Gastroenteritis K52.9 [facility] [address] [facility] [id number] [address] [place] [address] Apr, Blood in urine R31.9 [address] Acu [address] cystitis with hematuria N30.01 [place] [address] [id number] [address] [place] [address] Apr, Major depressive disorder in partial remission F32.4 ; FRANCIS (generalized anxiety disorder) F41.1 and Conversion disorder (or hysterical neurosis, conversion type) F44.9 [place] [address] [facility] [id number] [address] [place] [phone] Apr, [facility] [address] [id number] [address] [place] [address] Apr, Abnormal mammogram R92.8 [place] [address] [facility] [id number] [address] [place] [phone] Mar, [facility] [address] [id number] [address] [place] [address] Mar, Gastroenteritis K52.9 and Se izure disorder G40.909 [place] [address] [id number] [address] [place] [phone] Dec, [facility] [address] [id number] [address] [place] [address] Dec, Other headache syndrome G44. 89 [facility] [address] [id number] [address] [place] [address] Dec, [facility] [address] [id number] [address] [place] [address] Dec, Thoracic disc herniation M51 .24 [facility] [address] [id number] [address] [place] [address] Dec, [facility] [address] [id number] [address] [place] [phone] Nov, Major depressive disorder in partial remission F32.4 and FRANCIS (generalized anxiety disorder) F41.1 [facility] [address] [id number] [address] [place] [address] Nov, [facility] [address] [id number] [address] [place] [address] Nov, Dorsalgia, unspecified M54.9 [facility] [address] [id number] [address] [place] [phone] Oct, [facility] [address] [id number] [address] [place] [address] September, [facility] [address] [id number] [address] [place] [phone] Aug, [facility] [address] [id number] [address] [place] [phone] Aug, Major depressive disorder in partial remission F32.4 and FRANCIS (generalized anxiety disorder) F41.1 [facility] [address] [id number] [address] [place] [phone] Aug, [facility] [address] [id number] [address] [place] [address] Jul, Abnormal mammogram R92.8 [facility] [address] [id number] [address] [place] [phone] Jul, [facility] [address] [id number] [address] [place] [phone] Jul, [facility] [address] [id number] [address] [place] [phone] Jul, [facility] [address] [id number] [address] [place] [phone] Jul, [facility] [address] [id number] [address] [place] [phone] Jul, [facility] [address] [id number] [address] [place] [phone] Jul, [facility] [address] [id number] [address] [place] [phone] Jun, Major depressive disorder in partial remission F32.4 and FRANCIS (generalized anxiety disorder) F41.1 [facility] [address] [id number] [address] [place] [phone] Jun, [facility] [address] [id number] [address] [place] [phone] May, [facility] [address] [id number] [address] [place] [phone] Apr, [facility] [address] [id number] [address] [place] [address] Mar, Major depressive disorder, r ecurrent episode, moderate F33.1 ; PTSD (post-traumatic stress disorder) F43.10 and FRANCIS (generalized anxiety disorder) F41.1 [facility] [address] [id number] [address] [place] [address] Mar, [facility] [address] [id number] [address] [place] [address] Mar, [facility] [address] [id number] [address] [place] [phone] 07 Mar, 2015 [facility] [address] [id number] [address] [place] [phone] 07 Mar, 2015 [facility] [address] [id number] [address] [place] [phone] [address], [address] [facility] [address] [id number] [address] [place] [phone] [address], [address] [facility] [address] [id number] [address] [place] [address] [address], [address] [facility] [address] [id number] [address] [place] [address] 14 Jan, 2015 Thoracic disc herniation 722 .11 [facility] [address] [id number] [address] [place] [address] Dec, [facility] [address] [id number] [address] [place] [address] Dec, [facility] [address] [id number] [address] [place] [phone] Dec, [facility] [address] [id number] [address] [place] [phone] 16 Nov, 2014 [facility] [address] [id number] [address] [place] [phone] 14 Nov, 2014 Generalized anxiety disorder 300.02 ; Posttraumatic stress disorder 309.81 and Major depressive disorder, recurrent episode, moderate 296.32 [facility] [address] [id number] [address] [place] [address] Nov, [facility] [address] [id number] [address] [place] [phone] Nov, [facility] [address] [id number] [address] [place] [phone] Oct, [facility] [address] [id number] [address] [place] [phone] 05 Oct, 2014 [facility] [address] [id number] [address] [place] [address], [place] [address] Oct, [facility] [address] [id number] [address] [place] [address], [place] [address] September, [facility] [address] [id number] [address] [place] [address], [place] [address] September, [facility] [address] [id number] [address] [place] [address], [place] [address] Aug, [facility] [address] [id number] [address] [place] [address], [place] [address] Aug, [facility] [address] [id number] [address] [place] [address], [place] [address] Jul, [facility] [address] [id number] [address] [place] [address], [place] [address] Jul, [facility] [address] [id number] [address] [place] [address], [place] [address] Jul, [facility] [address] [id number] [address] [place] [address], [place] [address] 17 Jul, 2014 [facility] [address] [id number] [address] [place] [address], [place] [address] Jul, [facility] [address] [id number] [address] [place] [address], [place] [address] Jul, [facility] [address] [id number] [address] [place] [address], [place] [address] Jul, [facility] [address] [id number] [address] [place] [address], [place] [address] Jul, [facility] [address] [id number] [address] [place] [address], [place] [address] Jul, [facility] [address] [id number] [address] [place] [address], [place] [address] Jul, [facility] [address] [id number] [address] [place] [address], [place] [address] Jun, [facility] [address] [id number] [address] [place] [address], [place] [address] Jun, [facility] [address] [id number] [address] [place] [id number] Jun, [facility] [address] [id number] [address] [place] [address], [place] [address] May, [facility] [address] [id number] [address] [place] [id number] Apr, [facility] [address] [id number] [address] [place] [address], [place] [address] Apr, [facility] [address] [id number] [address] [place] [address], [place] [address] Apr, [facility] [address] [id number] [address] [place] [address], [place] [address] Apr, [facility] [address] [id number] [address] [place] [address], [place] [address] Apr, [facility] [address] [id number] [address] [place] [address], [place] [address] Apr, [facility] [address] [id number] [address] [place] [address], [place] [address] Apr, [facility] [address] [id number] [address] [place] [address], [place] [address] Apr, [facility] [address] [id number] [address] [place] [address], [place] [address] Mar, [facility] [address] [id number] [address] [place] [address], [place] [address] Mar, [facility] [address] [id number] [address] [place] [address], [place] [address] Mar, [facility] [address] [id number] [address] [place] [address], [place] [address] Mar, [facility] [address] [id number] [address] [place] [address], [place] [address] 24 Mar, 2013 [facility] [address] [id number] [address] [place] [address], [place] [address] 24 Mar, 2014 [facility] [address] [id number] [address] [place] [address], [place] [address] 24 Mar, 2014 [facility] [address] [id number] [address] [place] [address], [place] [address] Mar, [facility] [address] [id number] [address] [place] [address], [place] [address] Mar, [facility] [address] [id number] [address] [place] [address], [place] [address] Mar, [facility] [address] [id number] [address] [place] [address], [place] [address] 17 Mar, 2013 [facility] [address] [id number] [address] [place] [address], [place] [address] Mar, [facility] [address] [id number] [address] [place] [address], [place] [address] 14 Mar, 2014 [facility] [address] [id number] [address] [place] [address], [place] [address] 07 Mar, 2013 [facility] [address] [id number] [address] [place] [address], [place] [address] 07 Mar, 2014 [facility] [address] [id number] [address] [place] [address], [place] [address] 06 Mar, 2013 [facility] [address] [id number] [address] [place] [address], [place] [address] Mar, 2013 [facility] [address] [id number] [address] [place] [address], [place] [address] 19 Jan, 2013 [facility] [address] [id number] [address] [place] [address], [place] [address] 19 Jan, 2013 [facility] [address] [id number] [address] [place] [address], [place] [address] 09 Sep, 2013 [facility] [address] [id number] [facility] [place] [address] 09 Sep, 2013 [facility] [address] [id number] [address] [place] [address], [place] [address] 05 Sep, 2013 [facility] [address] [id number] [address] [place] [address], [place] [address] 05 Sep, 2013 [facility] [address] [id number] [address] [place] [address], [place] [address] 05 Sep, 2013 [facility] [address] [id number] [address] [place] [address], [place] [address] 05 Sep, 2013 [facility] [address] [id number] [address] [place] [address], [place] [address] 03 Jan, 2013 [facility] [address] [id number] [address] [place] [address], [place] [address] Jan, 2013 [facility] [address] [id number] [address] [place] [address], [place] [address] Jan, 2013 [facility] [address] [id number] [address] [place] [address], [place] [address] Jan, 2013 [facility] [address] [id number] [address] [place] [address], [place] [address] Jan, 2013 [facility] [address] [id number] [address] [place] [address], [place] [address] Dec, [facility] [address] [id number] [address] [place] [address], [place] [address] Dec, [facility] [address] [id number] [address] [place] [address], [place] [address] Dec, [facility] [address] [id number] [address] [place] [address], [place] [address] Dec, [facility] [address] [id number] [address] [place] [address], [place] [address] Dec, [facility] [address] [id number] [address] [place] [address], [place] [address] Dec, [facility] [address] [facility] [id number] Dec, [facility] [id number] Dec, [facility] [address] [id number] [address] [place] [address], [place] [address] Dec, [facility] [address] [id number] [address] [place] [address], [place] [address] Dec, [facility] [address] [id number] [address] [place] [address], [place] [address] Dec, [facility] [address] [id number] [address] [place] [address], [place] [address] Dec, [facility] [address] [id number] [address] [place] [address], [place] [address] Nov, [facility] [address] [id number] [address] [place] [address], [place] [address] Nov, [facility] [address] [id number] [address] [place] [address], [place] [address] Nov, [facility] [address] [id number] [address] [place] [address], [place] [address] Nov, [facility] [address] [id number] [address] [place] [address], [place] [address] Nov, [facility] [address] [id number] [address] [place] [address], [place] [address] Nov, [facility] [address] [id number] [address] [place] [address], [place] [address] Nov, [facility] [address] [id number] [address] [place] [address], [place] [address] Nov, [facility] [address] [id number] [address] [place] [address], [place] [address] Nov, [facility] [address] [id number] [address] [place] [address], [place] [address] Nov, [facility] [address] [id number] [facility] [place] [address] Nov, [facility] [address] [id number] [address] [place] [address], [place] [address] Nov, [facility] [address] [id number] [address] [place] [address], [place] [address] Nov, [facility] [address] [id number] [address] [place] [address], [place] [address] Oct, [facility] [address] [id number] [address] [place] [address], [place] [address] Oct, [facility] [address] [id number] [address] [place] [address], [place] [address] Oct, [facility] [address] [id number] [address] [place] [address], [place] [address] Oct, [facility] [address] [id number] [address] [place] [address], [place] [address] Oct, [facility] [address] [id number] [address] [place] [address], [place] [address] Oct, [facility] [address] [id number] [address] [place] [address], [place] [address] Oct, [facility] [address] [id number] [address] [place] [address], [place] [address] Oct, [facility] [address] [id number] [address] [place] [address], [place] [address] Oct, [facility] [address] [id number] [address] [place] [address], [place] [address] Oct, [facility] [address] [id number] [address] [place] [address], [place] [address] Oct, [facility] [address] [id number] [address] [place] [address], [place] [address] Oct, [facility] [address] [id number] [facility] [place] [address] September, [facility] [address] [id number] [facility] [place] [address] September, [facility] [address] [id number] [facility] [place] [address] September, [facility] [address] [id number] [address] [place] [address], [place] [address] September, [facility] [address] [id number] [facility] [place] [address] Aug, [facility] [address] [id number] [address] [place] [address], [place] [address] Aug, [facility] [address] [id number] [address] [place] [address], [place] [address] Aug, [facility] [address] [id number] [address] [place] [address], [place] [address] Aug, [facility] [address] [id number] [address] [place] [address], [place] [address] Aug, [facility] [address] [id number] [address] [place] [address], [place] [address] Aug, [facility] [address] [id number] [address] [place] [address], [place] [address] Aug, [facility] [address] [id number] [address] [place] [address], [place] [address] Jul, [facility] [address] [id number] [address] [place] [address], [place] [address] Jul, [facility] [address] [id number] [address] [place] [address], [place] [address] Jul, [facility] [address] [id number] [address] [place] [address], [place] [address] Jul, [facility] [address] [id number] [address] [place] [address], [place] [address] Jul, [facility] [address] [id number] [facility] [place] [address] 19 Jul, 2013 [facility] [address] [id number] [address] [place] [address], [place] [address] 18 Jul, 2013 [facility] [address] [id number] [facility] [place] [address] 18 Jul, 2013 [facility] [address] [id number] [address] [place] [address], [place] [address] 18 Jul, 2013 [facility] [address] [id number] [address] [place] [address], [place] [address] Jul, [facility] [address] [id number] [address] [place] [address], [place] [address] Jul, [facility] [address] [id number] [address] [place] [address], [place] [address] 18 Jul, 2013 [facility] [address] [id number] [address] [place] [address], [place] [address] 14 Jul, 2013 [facility] [address] [id number] [address] [place] [address], [place] [address] 14 Jul, 2013 [facility] [address] [id number] [address] [place] [address], [place] [address] Jul, [facility] [address] [id number] [address] [place] [address], [place] [address] Jul, [facility] [address] [id number] [address] [place] [address], [place] [address] Jul, [facility] [address] [id number] [address] [place] [address], [place] [address] Jul, [facility] [address] [id number] [address] [place] [address], [place] [address] Jun, [facility] [address] [id number] [address] [place] [address], [place] [address] Jun, [facility] [address] [id number] [address] [place] [address], [place] [address] 15 Jun, 2013 [facility] [address] [id number] [address] [place] [address], [place] [address] 15 Jun, 2013 [facility] [address] [id number] [address] [place] [address], [place] [address] 14 Jun, 2013 [facility] [address] [id number] [address] [place] [address], [place] [address] 14 Jun, 2013 [facility] [address] [id number] [address] [place] [address], [place] [address] 14 Jun, 2013 [facility] [address] [id number] [address] [place] [address], [place] [address] 14 Jun, 2013 [facility] [address] [id number] [address] [place] [address], [place] [address] 14 Jun, 2013 [facility] [address] [id number] [address] [place] [address], [place] [address] 14 Jun, 2013 [facility] [address] [id number] [address] [place] [address], [place] [address] 27 May, 2013 [facility] [address] [id number] [address] [place] [address], [place] [address] 27 May, 2013 [facility] [address] [id number] [address] [place] [address], [place] [address] 26 May, 2013 [facility] [address] [id number] [address] [place] [address], [place] [address] 19 May, 2013 [facility] [address] [id number] [address] [place] [address], [place] [address] 19 May, 2013 [facility] [address] [id number] [address] [place] [address], [place] [address] 16 May, 2013 [facility] [address] [id number] [address] [place] [address], [place] [address] 16 May, 2013 [facility] [address] [id number] [address] [place] [address], [place] [address] 16 May, 2013 [facility] [address] [id number] [address] [place] [address], [place] [address] 16 May, 2013 [facility] [address] [id number] [address] [place] [address], [place] [address] 13 May, 2013 [facility] [address] [id number] [address] [place] [address], [place] [address] 13 May, 2013 [facility] [address] [id number] [address] [place] [address], [place] [address] 11 May, 2013 [facility] [address] [id number] [address] [place] [address], [place] [address] 20 Apr, 2013 [facility] [address] [id number] [address] [place] [address], [place] [address] 18 Apr, 2013 [facility] [address] [id number] [address] [place] [address], [place] [address] 18 Apr, 2013 [facility] [address] [id number] [address] [place] [address], [place] [address] 13 Apr, 2013 [facility] [address] [id number] [address] [place] [address], [place] [address] Apr, [facility] [address] [id number] [address] [place] [address] 08 Apr, 2013 [facility] [address] [id number] [address] [place] [address] 08 Apr, 2013 [facility] [address] [id number] [address] [place] [address] 07 Apr, 2013 [facility] [address] [id number] [address] [place] [address], [place] [address] Apr, [facility] [address] [id number] [address] [place] [address] 07 Apr, 2013 [facility] [address] [id number] [address] [place] [address], [place] [address] 07 Apr, 2013 [facility] [address] [id number] [address] [place] [address], [place] [address] Mar, [facility] [address] [id number] [address] [place] [address], [place] [address] Mar, [facility] [address] [id number] [address] [place] [address], [place] [address] Mar, [facility] [address] [id number] [address] [place] [address], [place] [address] Mar, [facility] [address] [id number] [address] [place] [address], [place] [address] Mar, [facility] [address] [id number] [address] [place] [address], [place] [address] Mar, [facility] [address] [id number] [address] [place] [address], [place] [address] Mar, [facility] [address] [id number] [address] [place] [address], [place] [address] Mar, [facility] [address] [id number] [address] [place] [address], [place] [address] 18 Mar, 2013 [facility] [address] [id number] [address] [place] [address], [place] [address] 15 Mar, 2013 [facility] [address] [id number] [address] [place] [address], [place] [address] 15 Mar, 2013 [facility] [address] [id number] [address] [place] [address], [place] [address] Mar, [facility] [address] [id number] [address] [place] [address], [place] [address] 30 Jan, 2012 [facility] [address] [id number] [address] [place] [address], [place] [address] 25 Jan, 2012 [facility] [address] [id number] [address] [place] [address], [place] [address] 20 Jan, 2012 [facility] [address] [id number] [address] [place] [address], [place] [address] 10 Jan, 2013 [facility] [address] [id number] [facility] [place] [address] Dec, [facility] [address] [id number] [address] [place] [address], [place] [address] Dec, [facility] [address] [id number] [address] [place] [address], [place] [address] Dec, [facility] [address] [id number] [address] [place] [address], [place] [address] Dec, [facility] [address] [id number] [address] [place] [address], [place] [address] Dec, [facility] [address] [id number] [address] [place] [address], [place] [address] Dec, [facility] [address] [id number] [address] [place] [address], [place] [address] Dec, [facility] [address] [id number] [address] [place] [address], [place] [address] Dec, [facility] [address] [id number] [address] [place] [address], [place] [address] Dec, [facility] [address] [id number] [address] [place] [address], [place] [address] Nov, [facility] [address] [id number] [address] [place] [address], [place] [address] Nov, [facility] [address] [id number] [address] [place] [address], [place] [address] Nov, [facility] [address] [id number] [address] [place] [address], [place] [address] Nov, [facility] [address] [id number] [address] [place] [address], [place] [address] Nov, [facility] [address] [id number] [address] [place] [address], [place] [address] Nov, [facility] [address] [id number] [address] [place] [address], [place] [address] Nov, [facility] [address] [id number] [address] [place] [address], [place] [address] Nov, [facility] [address] [id number] [address] [place] [address], [place] [address] Oct, [facility] [address] [id number] [address] [place] [address], [place] [address] Oct, [facility] [address] [id number] [address] [place] [address], [place] [address] Oct, [facility] [address] [id number] [address] [place] [address], [place] [address] Oct, [facility] [address] [id number] [address] [place] [address], [place] [address] Oct, [facility] [address] [id number] [address] [place] [address], [place] [address] Oct, [facility] [address] [id number] [address] [place] [address], [place] [address] Oct, [facility] [address] [id number] [address] [place] [address], [place] [address] Oct, [facility] [address] [id number] [address] [place] [address], [place] [address] Oct, [facility] [address] [id number] [address] [place] [address], [place] [address] 18 Oct, 2012 [facility] [address] [id number] [address] [place] [address], [place] [address] 17 Oct, 2012 [facility] [address] [id number] [address] [place] [address], [place] [address] 14 Oct, 2012 [facility] [address] [id number] [address] [place] [address], [place] [address] 07 Oct, 2012 [facility] [address] [id number] [address] [place] [address], [place] [address] September, [facility] [address] [id number] [address] [place] [address], [place] [address] September, [facility] [place] [address] [id number] [address] [place] [address], [place] [address] September, [facility] [place] [address] [id number] [address] [place] [address], [place] [address] Aug, [facility] [address] [id number] [address] [place] [address], [place] [address] Aug, [facility] [place] [address] [id number] [address] [place] [address], [place] [address] Aug, [facility] [place] [address] [id number] [address] [place] [address], [place] [address] Aug, [facility] [place] [address] [id number] [address] [place] [address], [place] [address] Aug, [facility] [place] [address] [id number] [address] [place] [address], [place] [address] Aug, [facility] [address] [id number] [address] [place] [address], [place] [address] Aug, [facility] [address] [id number] [address] [place] [address], [place] [address] Jul, [facility] [address] [id number] [address] [place] [address], [place] [address] Jul, [facility] [place] [address] [id number] [address] [place] [address], [place] [address] Jul, [facility] [address] [id number] [address] [place] [address], [place] [address] Jul, [facility] [place] [address] [id number] [address] [place] [address], [place] [address] Jul, [facility] [address] [id number] [address] [place] [address], [place] [address] Jul, [facility] [place] [address] [id number] [address] [place] [address], [place] [address] Jul, [facility] [address] [id number] [address] [place] [address], [place] [address] Jul, [facility] [address] [id number] [address] [place] [address], [place] [address] Jul, [facility] [address] [id number] [address] [place] [address], [place] [address] Jul, [facility] [address] [id number] [address] [place] [address], [place] [address] Jul, [facility] [address] [id number] [address] [place] [address], [place] [address] Jul, [facility] [address] [id number] [address] [place] [address], [place] [address] Jul, [facility] [address] [id number] [address] [place] [address], [place] [address] Jun, [facility] [address] [id number] [address] [place] [address], [place] [address] Jun, [facility] [address] [id number] [address] [place] [address], [place] [address] Jun, [facility] [address] [id number] [address] [place] [address], [place] [address] Jun, [facility] [place] [address] [id number] [address] [place] [address], [place] [address] Jun, [facility] [address] [id number] [address] [place] [address], [place] [address] 14 Jun, 2012 [facility] [address] [id number] [address] [place] [address], [place] [address] Jun, [facility] [address] [id number] [address] [place] [address], [place] [address] May, [facility] [address] [id number] [address] [place] [address], [place] [address] May, [facility] [address] [id number] [address] [place] [address], [place] [address] May, [facility] [address] [id number] [address] [place] [address], [place] [address] May, [facility] [address] [id number] [address] [place] [address], [place] [address] May, [facility] [address] [id number] [address] [place] [address], [place] [address] May, [facility] [address] [id number] [address] [place] [address], [place] [address] May, [facility] [address] [id number] [address] [place] [address], [place] [address] May, [facility] [place] [address] [id number] [address] [place] [address], [place] [address] May, [facility] [place] [address] [id number] [address] [place] [address], [place] [address] May, [facility] [place] [address] [id number] [address] [place] [address], [place] [address] Apr, [facility] [place] [address] [id number] [address] [place] [address], [place] [address] Apr, [facility] [address] [id number] [address] [place] [address], [place] [address] Apr, [facility] [address] [id number] [address] [place] [address], [place] [address] Apr, [facility] [address] [id number] [address] [place] [address], [place] [address] Apr, [facility] [address] [id number] [address] [place] [address], [place] [address] Apr, [facility] [address] [id number] [address] [place] [address], [place] [address] Apr, [facility] [address] [id number] [address] [place] [address], [place] [address] Apr, [facility] [address] [id number] [address] [place] [address], [place] [address] Apr, [facility] [address] [id number] [address] [place] [address], [place] [address] Apr, [facility] [address] [id number] [address] [place] [address], [place] [address] Apr, [facility] [address] [id number] [address] [place] [address], [place] [address] Apr, [facility] [address] [id number] [address] [place] [address], [place] [address] Mar, [facility] [address] [id number] [address] [place] [address], [place] [address] Mar, [facility] [address] [id number] [address] [place] [address], [place] [address] Mar, [facility] [address] [id number] [address] [place] [id number] Mar, [facility] [address] [id number] [address] [place] [id number] Mar, [facility] [address] [id number] [address] [place] [phone] Mar, [facility] [address] [id number] [address] [place] [id number] Mar, [facility] [address] [id number] [address] [place] [id number] 30 Mar, 2012 [facility] [address] [id number] [address] [place] [id number] Mar, [facility] [address] [id number] [address] [place] [id number] Mar, [facility] [address] [id number] [address] [place] [id number] 16 Mar, 2012 [facility] [address] [id number] [address] [place] [id number] 16 Mar, 2012 [facility] [address] [id number] [address] [place] [address], [place] [address] 12 Mar, 2012 [facility] [address] [id number] [address] [place] [address], [place] [address] 12 Mar, 2012 [facility] [address] [id number] [address] [place] [address], [place] [address] 03 Mar, 2012 [facility] [address] [id number] [address] [place] [address], [place] [address] 02 Mar, 2012 [facility] [address] [id number] [address] [place] [address], [place] [address] 25 Jan, 2012 [facility] [address] [id number] [address] [place] [address], [place] [address] 24 Jan, 2012 [facility] [address] [id number] [address] [place] [address], [place] [address] 22 Jan, 2012 [facility] [address] [id number] [address] [place] [address], [place] [address] 22 Jan, 2012 [facility] [address] [id number] [address] [place] [address], [place] [address] 21 Jan, 2012 [facility] [address] [id number] [address] [place] [address], [place] [address] 18 Jan, 2012 [facility] [address] [id number] [address] [place] [address], [place] [address] 14 Jan, 2012 [facility] [address] [id number] [address] [place] [address], [place] [address] 07 Jan, 2012 [facility] [address] [id number] [address] [place] [address], [place] [address] 15 Dec, 2011 [facility] [address] [id number] [address] [place] [address], [place] [id number] 10 Dec, 2011 [facility] [address] [id number] [address] [place] [address], [place] [address] 09 Dec, 2011 [facility] [address] [id number] [facility] [place] [address] Dec, [facility] [address] [id number] [address] [place] [address], [place] [address] Dec, [facility] [address] [id number] [address] [place] [address], [place] [address] Dec, [facility] [address] [id number] [address] [place] [address], [place] [address] Dec, [facility] [address] [id number] [address] [place] [address], [place] [address] Nov, [facility] [address] [id number] [address] [place] [address], [place] [address] Oct, [facility] [address] [id number] [address] [place] [address], [place] [address] Aug, [facility] [address] [id number] [address] [place] [address], [place] [address] Jul, [facility] [address] [id number] [address] [place] [address], [place] [address] Jul, [facility] [address] [id number] [address] [place] [address], [place] [address] 16 Jul, 2011 [facility] [address] [id number] [address] [place] [address], [place] [address] 14 Jul, 2011 [facility] [address] [id number] [address] [place] [address], [place] [address] 07 Jul, 2011 [facility] [address] [id number] [address] [place] [address], [place] [address] 02 Jul, 2011 [facility] [address] [id number] [address] [place] [address], [place] [address] 21 Jul, 2011 [facility] [address] [id number] [address] [place] [address], [place] [address] 15 Jul, 2011 [facility] [address] [id number] [address] [place] [address], [place] [address] Jul, [facility] [address] [id number] [address] [place] [address], [place] [address] Jul, [facility] [address] [id number] [address] [place] [address], [place] [address] Jul, [facility] [address] [id number] [address] [place] [address], [place] [address] Jun, [facility] [address] [id number] [address] [place] [address], [place] [address] Jun, [facility] [address] [id number] [address] [place] [address], [place] [address] Jun, [facility] [address] [id number] [address] [place] [address], [place] [address] Jun, [facility] [address] [id number] [address] [place] [address], [place] [address] Jun, [facility] [address] [id number] [address] [place] [address], [place] [address] Jun, [facility] [address] [id number] [address] [place] [address], [place] [address] Jun, [facility] [address] [id number] [address] [place] [address], [place] [address] May, [facility] [address] [id number] [address] [place] [address], [place] [address] May, [facility] [address] [id number] [address] [place] [address], [place] [address] May, [facility] [address] [id number] [address] [place] [address], [place] [address] May, [facility] [address] [id number] [address] [place] [address], [place] [address] May, [facility] [address] [id number] [address] [place] [address], [place] [address] May, [facility] [address] [id number] [address] [place] [id number] May, [facility] [address] [id number] [address] [place] [id number] May, [facility] [address] [id number] [address] [place] [id number] May, [facility] [address] [id number] [address] [place] [id number] May, [facility] [address] [id number] [address] [place] [id number] Apr, [facility] [address] [id number] [address] [place] [id number] Apr, [facility] [address] [id number] [address] [place] [id number] Apr, [facility] [address] [id number] [address] [place] [id number] Apr, [facility] [address] [id number] [address] [place] [phone] Mar, [facility] [address] [id number] [address] [place] [id number] Mar, [facility] [address] [id number] [address] [place] [id number] Mar, [facility] [address] [id number] [address] [place] [id number] Mar, IMMUNIZATIONS No Known Immunizations SOCIAL HISTORY [...]
--- OUTSIDE RECORDS SUMMARY | 2020-01-03 18:07 | XMS REPORT ---
Author Author Pattie VIEIRA Organization [facility] Address [address] [place] [address] Care Team Providers Care Precision Instrument Maker Name Role Phone REYNALDO VIEIRA Unavailable PROBLEMS Type Condition ICD9-CM Code [id number] Code Onset Dates Condition S tatus SNOMED Code Problem Major depressive disorder in partial remission F32 .4 Active 82520487 Problem FRANCIS (generalized anxiety disorder) F41.1 Active 55848161 Problem Conversion disorder (or hysterical neurosis, conversion ty pe) F44.9 Active 56426853 Problem Thoracic disc herniation M51.24 Activ e 227971590 Problem Slow transit constipation K59.01 Acti ve 93618063 Problem Constipation, unspecified constipation type K59.00 Active 96946386 Problem Mild episode of recurrent major depressive disorder F33.0 Active 680595637 Problem High blood pressure I10 Active 30087775 Problem Paroxysmal tachycardia I47.9 Active 00472441 Problem Nonadherence to medication Z91.14 Act vivian 105865577 Problem Seizure disorder G40.909 Active 128 126007 Problem Restless leg syndrome G25.81 Active 99317087 Problem Other chronic pain G89.29 Active 8 1497285 Problem Mild intermittent asthma without complication J45. 20 Active 489093651 Problem Obesity (BMI 30.0-34.9) E66.9 Active [id number] ALLERGIES No Information ENCOUNTERS Encounter Location Date Diagnosis [facility] [address] [facility] [id number] [address] [place] [address] September, [facility] [address] [facility] [id number] [address] [place] [address] September, [facility] [address] [facility] [id number] [address] [place] [address] Aug, [facility] [address] [id number] [address] [place] [phone] Aug, Dental examination Z01.20 [facility] [address] [id number] [address] [place] [address] [id number] 15 Aug, 2019 Dental examination Z01.20 an d Caries K02.9 [facility] [address] [id number] [address] [place] [phone] Aug, [facility] [address] [id number] [address] [place] [address] Aug, [facility] [address] [id number] [address] [place] [address] Aug, Other chronic pain G89.29 an d Back muscle spasm M62.830 [facility] [address] [id number] [address] [place] [address] Aug, [facility] [address] [facility] [id number] [address] [place] [address] Aug, Major depressive disorder in partial remission F32.4 ; FRANCIS (generalized anxiety disorder) F41.1 ; Restless leg syndrome G25.81 and Nonadherence to medication Z91.14 [facility] [address] [id number] [address] [place] [address] Aug, [facility] [address] [id number] [address] [place] [address] Jul, [facility] [address] [facility] [id number] [address] [place] [phone] Jul, [facility] [address] [facility] [id number] [address] [place] [address] Jul, Major depressive disorder in partial remission F32.4 ; FRANCIS (generalized anxiety disorder) F41.1 ; Restless leg syndrome G25.81 and High blood pressure I10 [facility] [address] [id number] [address] [place] [address] 17 Jul, 2019 [facility] [address] [facility] [id number] [address] [place] [address] Jul, [facility] [address] [id number] [address] [place] [address] Jun, [facility] [address] [id number] [address] [place] [address] May, [facility] [address] [id number] [address] [place] [address] Apr, [facility] [address] [id number] [address] [place] [address] Apr, [facility] [address] [id number] [address] [place] [address] Mar, [facility] [address] [id number] [address] [place] [address] Mar, Major depressive disorder in partial remission F32.4 ; FRANCIS (generalized anxiety disorder) F41.1 and Restless leg syndrome G25.81 [facility] [address] [id number] [address] [place] [address] Mar, Obesity (BMI 30.0-34.9) E66. 9 [facility] [address] [id number] [address] [place] [address] Jan, [facility] [address] [facility] [id number] [address] [place] [address] Jan, Burn T30.0 [facility] [address] [id number] [address] [place] [phone] Dec, [facility] [address] [id number] [address] [place] [phone] Nov, [facility] [address] [id number] [address] [place] [address] Nov, [facility] [address] [id number] [address] [place] [address] [id number] Nov, Dental examination Z01.20 [facility] [address] [id number] [address] [place] [address] September, [facility] [address] [id number] [address] [place] [address] [id number] September, Decay, teeth K02.9 and Denta l examination Z01.20 [facility] [address] [id number] [address] [place] [address] [id number] September, Dental examination Z01.20 [facility] [address] [facility] [id number] [address] [place] [address] September, FRANCIS (generalized anxiety dis order) F41.1 ; Major depressive disorder in partial remission F32.4 and Restless leg syndrome G25.81 [place] [address] [facility] [id number] [address] [place] [address] Aug, [place] [address] [facility] [id number] [address] [place] [address] Jul, [place] [address] [place] [id number] [address] [place] [address] Jul, Encounter to discuss test re sults Z71.2 [facility] [address] [facility] [id number] [address] [place] [address] Jul, Pelvic pain R10.2 ; Screenin g for breast cancer Z12.31 and Obesity (BMI 30.0-34.9) E66.9 [facility] [address] [facility] [id number] [address] [place] [address] Jul, Mild intermittent asthma wit hout complication J45.20 [facility] [address] [facility] [id number] [address] [place] [address] Jul, Major depressive disorder in partial remission F32.4 and FRANCIS (generalized anxiety disorder) F41.1 [place] [address] [facility] [id number] [address] [place] [address] Jul, [facility] [address] [facility] [id number] [address] [place] [address] Jun, [place] [address] [id number] [address] [place] [address] May, Major depressive disorder in partial remission F32.4 ; FRANCIS (generalized anxiety disorder) F41.1 and Restless leg syndrome G25.81 [facility] [address] [id number] [address] [place] [address] Apr, [facility] [address] [id number] [address] [place] [address] Mar, [facility] [address] [id number] [address] [place] [address] 21 Jan, 2018 Pain in thoracic spine M54.6 and Other chronic pain G89.29 [facility] [address] [id number] [address] [place] [address] 14 Jan, 2018 [facility] [address] [id number] [address] [place] [address] 11 Jan, 2018 Mild episode of recurrent ma saray depressive disorder F33.0 ; FRANCIS (generalized anxiety disorder) F41.1 and Restless leg syndrome G25.81 [facility] [address] [id number] [address] [place] [address] Dec, [facility] [address] [id number] [address] [place] [address] Dec, Hospital discharge follow-up Z09 [facility] [address] [id number] [address] [place] [address] Nov, [facility] [address] [id number] [address] [place] [address] Nov, [facility] [address] [id number] [address] [place] [address] September, [facility] [address] [id number] [address] [place] [address] September, [facility] [address] [id number] [address] [place] [address] September, Major depressive disorder in partial remission F32.4 ; FRANCIS (generalized anxiety disorder) F41.1 and Restless leg syndrome G25.81 [facility] [address] [id number] [address] [place] [address] September, [facility] [address] [id number] [address] [place] [address] Jul, [facility] [address] [id number] [address] [place] [address] Jul, Dorsalgia, unspecified M54.9 [facility] [address] [id number] [address] [place] [address] Jul, Mild episode of recurrent ma saray depressive disorder F33.0 and FRANCIS (generalized anxiety disorder) F41.1 [facility] [address] [id number] [address] [place] [address] May, [facility] [address] [id number] [address] [place] [address] May, Dysuria R30.0 and Acute cyst itis with hematuria N30.01 [facility] [address] [id number] [address] [place] [address] Apr, [facility] [address] [facility] [id number] [address] [place] [address] Apr, Major depressive disorder in partial remission F32.4 and FRANCIS (generalized anxiety disorder) F41.1 [facility] [address] [id number] [address] [place] [address] Mar, Paroxysmal tachycardia I47.9 [facility] [address] [id number] [address] [place] [address] Mar, Paroxysmal tachycardia I47.9 and Pain of left lower extremity M79.605 [facility] [address] [id number] [address] [place] [address] Mar, FRANCIS (generalized anxiety dis order) F41.1 and Major depressive disorder in partial remission F32.4 [place] [address] [id number] [address] [place] [address] 25 Jan, 2017 [facility] [address] [id number] [address] [place] [address] 14 Jan, 2017 [facility] [address] [id number] [address] [place] [address] 13 Jan, 2017 [facility] [address] [id number] [address] [place] [address] Dec, Constipation, unspecified co nstipation type K59.00 [facility] [address] [facility] [id number] [address] [place] [address] Dec, [facility] [address] [facility] [id number] [address] [place] [address] Nov, [facility] [address] [facility] [id number] [address] [place] [address] Nov, Major depressive disorder in partial remission F32.4 and FRANCIS (generalized anxiety disorder) F41.1 [facility] [address] [facility] [id number] [address] [place] [address] Oct, Abdominal pain R10.9 and Slo w transit constipation K59.01 [facility] [address] [facility] [id number] [address] [place] [address] Aug, Major depressive disorder in partial remission F32.4 ; FRANCIS (generalized anxiety disorder) F41.1 ; Conversion disorder (or hysterical neurosis, conversion type) F44.9 ; Dorsalgia, unspecified M54.9 and Long-term use of high-risk medication Z79.899 [facility] [address] [facility] [id number] [address] [place] [address] Aug, [facility] [address] [facility] [id number] [address] [place] [address] 15 Jul, 2016 Paroxysmal tachycardia I47.9 [facility] [address] [facility] [id number] [address] [place] [address] Jul, Paroxysmal tachycardia I47.9 [facility] [address] [id number] [address] [place] [address] Jun, [place] [address] [id number] [address] [place] [address] Jun, Major depressive disorder in partial remission F32.4 ; FRANCIS (generalized anxiety disorder) F41.1 and Conversion disorder (or hysterical neurosis, conversion type) F44.9 [facility] [address] [id number] [address] [place] [address] May, Pelvic pain R10.2 [facility] [address] [id number] [address] [place] [address] Apr, Gastroenteritis K52.9 [facility] [place] [address] [facility] [id number] [address] [place] [address] Apr, Blood in urine R31.9 and Acu te cystitis with hematuria N30.01 [place] [address] [id number] [address] [place] [address] Apr, Major depressive disorder in partial remission F32.4 ; FRANCIS (generalized anxiety disorder) F41.1 and Conversion disorder (or hysterical neurosis, conversion type) F44.9 [place] [address] [id number] [address] [place] [address] Apr, [place] [address] [id number] [address] [place] [address] Apr, Abnormal mammogram R92.8 [place] [address] [id number] [address] [place] [address] Mar, [place] [address] [id number] [address] [place] [address] Mar, Gastroenteritis K52.9 and Se izure disorder G40.909 [place] [address] [id number] [address] [place] [address] Dec, [facility] [address] [id number] [address] [place] [address] Dec, Other headache syndrome G44. 89 [facility] [address] [id number] [address] [place] [address] Dec, [facility] [address] [id number] [address] [place] [address] Dec, Thoracic disc herniation M51 .24 [facility] [address] [id number] [address] [place] [address] Dec, [facility] [address] [id number] [address] [place] [address] Nov, Major depressive disorder in partial remission F32.4 and FRANCIS (generalized anxiety disorder) F41.1 [facility] [address] [id number] [address] [place] [address] Nov, [facility] [address] [facility] [id number] [address] [place] [address] Nov, Dorsalgia, unspecified M54.9 [facility] [address] [id number] [address] [place] [address] Oct, [facility] [address] [id number] [address] [place] [address] September, [facility] [address] [id number] [address] [place] [address] Aug, [facility] [address] [id number] [address] [place] [address] Aug, Major depressive disorder in partial remission F32.4 and FRANCIS (generalized anxiety disorder) F41.1 [facility] [address] [id number] [address] [place] [address] Aug, [facility] [address] [facility] [id number] [address] [place] [address] Jul, Abnormal mammogram R92.8 [facility] [address] [id number] [address] [place] [address] Jul, [facility] [address] [id number] [address] [place] [address] Jul, [facility] [address] [id number] [address] [place] [address] Jul, [facility] [address] [facility] [id number] [address] [place] [address] Jul, [facility] [address] [id number] [address] [place] [address] Jul, [facility] [address] [facility] [id number] [address] [place] [address] Jul, [facility] [address] [facility] [id number] [address] [place] [address] Jun, Major depressive disorder in partial remission F32.4 and FRANCIS (generalized anxiety disorder) F41.1 [facility] [address] [facility] [id number] [address] [place] [address] Jun, [facility] [address] [facility] [id number] [address] [place] [address] May, [facility] [address] [facility] [id number] [address] [place] [address] Apr, [facility] [address] [facility] [id number] [address] [place] [address] Mar, Major depressive disorder, r ecurrent episode, moderate F33.1 ; PTSD (post-traumatic stress disorder) F43.10 and FRANCIS (generalized anxiety disorder) F41.1 [facility] [address] [facility] [id number] [address] [place] [address] Mar, [facility] [address] [facility] [id number] [address] [place] [address] Mar, [facility] [address] [facility] [id number] [address] [place] [address] Mar, [facility] [address] [facility] [id number] [address] [place] [phone] 07 Mar, 2015 [facility] [address] [id number] [address] [place] [address] 23 Jan, 2015 [facility] [address] [id number] [address] [place] [address] 15 Jan, 2015 [facility] [address] [id number] [address] [place] [address] 15 Jan, 2015 [facility] [address] [id number] [address] [place] [address] 14 Jan, 2015 Thoracic disc herniation 722 .11 [facility] [address] [id number] [address] [place] [address] Dec, [facility] [address] [id number] [address] [place] [address] Dec, [facility] [address] [id number] [address] [place] [address] Dec, [facility] [address] [id number] [address] [place] [address] Nov, [facility] [address] [id number] [address] [place] [address] Nov, Generalized anxiety disorder 300.02 ; Posttraumatic stress disorder 309.81 and Major depressive disorder, recurrent episode, moderate 296.32 [facility] [address] [id number] [address] [place] [address] Nov, [facility] [address] [id number] [address] [place] [address] Nov, [facility] [address] [id number] [address] [place] [address] Oct, [facility] [address] [id number] [address] [place] [address] Oct, [facility] [address] [id number] [address] [place] [address] Oct, [facility] [address] [id number] [address] [place] [address], [place] [address] 15 Sep, 2014 [facility] [address] [id number] [address] [place] [address], [place] [address] September, [facility] [address] [id number] [address] [place] [address], [place] [address] 14 Aug, 2014 [facility] [address] [id number] [address] [place] [address], [place] [address] Aug, [facility] [address] [id number] [address] [place] [address], [place] [address] Jul, [facility] [address] [id number] [address] [place] [address], [place] [address] 25 Jul, 2014 [facility] [address] [id number] [address] [place] [address], [place] [address] 17 Jul, 2014 [facility] [address] [id number] [address] [place] [address], [place] [address] 17 Jul, 2014 [facility] [address] [id number] [address] [place] [address], [place] [address] 16 Jul, 2014 [facility] [address] [id number] [address] [place] [address], [place] [address] 16 Jul, 2014 [facility] [address] [id number] [address] [place] [address], [place] [address] 19 Jul, 2014 [facility] [address] [id number] [address] [place] [address], [place] [address] 19 Jul, 2014 [facility] [address] [id number] [address] [place] [address], [place] [address] Jul, [facility] [address] [id number] [address] [place] [address], [place] [address] Jul, [facility] [address] [id number] [address] [place] [address], [place] [address] 15 Jun, 2014 [facility] [address] [id number] [address] [place] [address], [place] [address] Jun, [facility] [address] [id number] [address] [place] [address], [place] [address] Jun, [facility] [address] [id number] [address] [place] [address], [place] [address] May, [facility] [address] [id number] [address] [place] [address], [place] [address] Apr, [facility] [address] [id number] [address] [place] [address], [place] [address] Apr, [facility] [address] [id number] [address] [place] [address], [place] [address] Apr, [facility] [address] [id number] [address] [place] [address], [place] [address] Apr, [facility] [address] [id number] [address] [place] [address], [place] [address] Apr, [facility] [address] [id number] [address] [place] [address], [place] [address] Apr, [facility] [address] [id number] [address] [place] [address], [place] [address] Apr, [facility] [address] [id number] [address] [place] [address], [place] [address] Apr, [facility] [address] [id number] [address] [place] [id number] Mar, [facility] [address] [id number] [address] [place] [address] Mar, [facility] [address] [id number] [address] [place] [address], [place] [address] Mar, [facility] [address] [id number] [address] [place] [address] Mar, [facility] [address] [id number] [address] [place] [address], [place] [address] Mar, [facility] [address] [id number] [address] [place] [address], [place] [address] 24 Mar, 2014 [facility] [address] [id number] [address] [place] [address], [place] [address] 24 Mar, 2014 [facility] [address] [id number] [address] [place] [address], [place] [address] Mar, [facility] [address] [id number] [address] [place] [address], [place] [address] 23 Mar, 2014 [facility] [address] [id number] [address] [place] [address], [place] [address] Mar, [facility] [address] [id number] [address] [place] [address], [place] [address] 17 Mar, 2014 [facility] [address] [id number] [address] [place] [address], [place] [address] 14 Mar, 2014 [facility] [address] [id number] [address] [place] [address], [place] [address] 14 Mar, 2014 [facility] [address] [id number] [address] [place] [address], [place] [address] Mar, [facility] [address] [id number] [address] [place] [address], [place] [address] 07 Mar, 2014 [facility] [address] [id number] [address] [place] [address], [place] [address] 06 Mar, 2014 [facility] [address] [id number] [address] [place] [address], [place] [address] 06 Mar, 2014 [facility] [address] [id number] [address] [place] [address], [place] [address] 19 Jan, 2013 [facility] [address] [id number] [address] [place] [address], [place] [address] Jan, 2013 [facility] [address] [id number] [address] [place] [address], [place] [address] Jan, 2013 [facility] [address] [id number] [address] [place] [address], [place] [address] 09 Jan, 2013 [facility] [address] [id number] [address] [place] [address], [place] [address] 05 Sep, 2013 [facility] [address] [id number] [address] [place] [address], [place] [address] Jan, 2013 [facility] [address] [id number] [address] [place] [address], [place] [address] 05 Jan, 2013 [facility] [address] [id number] [address] [place] [address], [place] [address] 05 Jan, 2013 [facility] [address] [id number] [address] [place] [address], [place] [address] 03 Jan, 2013 [facility] [address] [id number] [address] [place] [address], [place] [address] Jan, 2013 [facility] [address] [id number] [address] [place] [address], [place] [address] Jan, 2013 [facility] [address] [id number] [address] [place] [address], [place] [address] Jan, 2013 [facility] [address] [id number] [address] [place] [address], [place] [address] Jan, 2013 [facility] [address] [id number] [address] [place] [address], [place] [address] Dec, [facility] [address] [id number] [address] [place] [address], [place] [address] Dec, [facility] [address] [id number] [address] [place] [address], [place] [address] Dec, [facility] [address] [id number] [address] [place] [address], [place] [address] Dec, [facility] [address] [id number] [address] [place] [address], [place] [address] Dec, [facility] [address] [id number] [address] [place] [address], [place] [address] Dec, Via [address] [id number] Dec, Via [facility] IP 1 ID [facility] [place] [id number] Dec, [facility] [address] [id number] [address] [place] [address], [place] [address] Dec, [facility] [address] [id number] [address] [place] [address], [place] [address] Dec, [facility] [address] [id number] [address] [place] [address], [place] [address] Dec, [facility] [address] [id number] [address] [place] [address], [place] [address] Dec, [facility] [address] [id number] [address] [place] [address], [place] [address] Nov, [facility] [address] [id number] [address] [place] [address], [place] [address] Nov, [facility] [address] [id number] [address] [place] [address], [place] [address] Nov, [facility] [address] [id number] [address] [place] [address], [place] [address] Nov, [facility] [address] [id number] [address] [place] [address], [place] [address] Nov, [facility] [address] [id number] [address] [place] [address], [place] [address] Nov, [facility] [address] [id number] [address] [place] [address], [place] [address] Nov, [facility] [address] [id number] [address] [place] [address], [place] [address] Nov, [facility] [address] [id number] [address] [place] [address], [place] [address] Nov, [facility] [address] [id number] [address] [place] [address], [place] [address] Nov, [facility] [address] [id number] [address] [place] [address], [place] [address] Nov, [facility] [address] [id number] [facility] [place] [address] Nov, [facility] [address] [id number] [facility] [place] [address] Nov, [facility] [address] [id number] [facility] [place] [address] Oct, [facility] [address] [id number] [address] [place] [address], [place] [address] Oct, [facility] [address] [id number] [facility] [place] [place] [address] Oct, [facility] [address] [id number] [address] [place] [address], [place] [address] Oct, [facility] [address] [id number] [address] [place] [address], [place] [address] Oct, [facility] [address] [id number] [address] [place] [address], [place] [address] Oct, [facility] [address] [id number] [address] [place] [address], [place] [address] Oct, [facility] [address] [id number] [address] [place] [address], [place] [address] Oct, [facility] [address] [id number] [address] [place] [address], [place] [address] Oct, [facility] [address] [id number] [address] [place] [address], [place] [address] Oct, [facility] [address] [id number] [address] [place] [address], [place] [address] Oct, [facility] [address] [id number] [address] [place] [address], [place] [address] Oct, [facility] [address] [id number] [facility] [place] [address] September, [facility] [address] [id number] [facility] [place] [address] September, [facility] [address] [id number] [facility] [place] [place] [address] September, [facility] [address] [id number] [facility] [place] [address] September, [facility] [address] [id number] [address] [place] [address], [place] [address] Aug, [facility] [address] [id number] [address] [place] [address], [place] [address] Aug, [facility] [address] [id number] [address] [place] [address], [place] [address] Aug, [facility] [address] [id number] [address] [place] [address], [place] [address] Aug, [facility] [address] [id number] [address] [place] [address], [place] [address] Aug, [facility] [address] [id number] [address] [place] [address], [place] [address] Aug, [facility] [address] [id number] [address] [place] [address], [place] [address] Aug, [facility] [address] [id number] [address] [place] [address], [place] [address] Jul, [facility] [address] [id number] [address] [place] [address], [place] [address] Jul, [facility] [address] [id number] [address] [place] [address], [place] [address] Jul, [facility] [address] [id number] [address] [place] [address], [place] [address] Jul, [facility] [address] [id number] [address] [place] [address], [place] [address] Jul, [facility] [address] [id number] [address] [place] [address], [place] [address] Jul, [facility] [address] [id number] [facility] [address] Jul, [facility] [address] [id number] [address] [place] [address], [place] [address] Jul, [facility] [address] [id number] [address] [place] [address], [place] [address] 18 Jul, 2013 [facility] [address] [id number] [address] [place] [address], [place] [address] Jul, [facility] [address] [id number] [address] [place] [address], [place] [address] Jul, [facility] [address] [id number] [address] [place] [address], [place] [address] Jul, [facility] [address] [id number] [address] [place] [address], [place] [address] 14 Jul, 2013 [facility] [address] [id number] [address] [place] [address], [place] [address] Jul, [facility] [address] [id number] [address] [place] [address], [place] [address] Jul, [facility] [address] [id number] [address] [place] [address], [place] [address] Jul, [facility] [address] [id number] [address] [place] [address], [place] [address] Jul, [facility] [address] [id number] [address] [place] [address], [place] [address] Jul, [facility] [address] [id number] [address] [place] [address], [place] [address] Jun, [facility] [address] [id number] [address] [place] [address], [place] [address] Jun, [facility] [address] [id number] [address] [place] [address], [place] [address] Jun, [facility] [address] [id number] [address] [place] [address], [place] [address] 15 Jun, 2013 [facility] [address] [id number] [address] [place] [address], [place] [address] 14 Jun, 2013 [facility] [address] [id number] [address] [place] [address], [place] [address] 14 Jun, 2013 [facility] [address] [id number] [address] [place] [address], [place] [address] 14 Jun, 2013 [facility] [address] [id number] [address] [place] [address], [place] [address] 14 Jun, 2013 [facility] [address] [id number] [address] [place] [address], [place] [address] 14 Jun, 2013 [facility] [address] [id number] [address] [place] [address], [place] [address] 14 Jun, 2013 [facility] [address] [id number] [address] [place] [address], [place] [address] 27 May, 2013 [facility] [address] [id number] [address] [place] [address], [place] [address] 27 May, 2013 [facility] [address] [id number] [address] [place] [address], [place] [address] 26 May, 2013 [facility] [address] [id number] [address] [place] [address], [place] [address] 19 May, 2013 [facility] [address] [id number] [address] [place] [address], [place] [address] 19 May, 2013 [facility] [address] [id number] [address] [place] [address], [place] [address] 16 May, 2013 [facility] [address] [id number] [address] [place] [address], [place] [address] 16 May, 2013 [facility] [address] [id number] [address] [place] [address], [place] [address] 16 May, 2013 [facility] [address] [id number] [address] [place] [address], [place] [address] 16 May, 2013 [facility] [address] [id number] [address] [place] [address], [place] [address] 13 May, 2013 [facility] [address] [id number] [address] [place] [address], [place] [address] 13 May, 2013 [facility] [address] [id number] [address] [place] [address], [place] [address] 11 May, 2013 [facility] [address] [id number] [address] [place] [address], [place] [address] 20 Apr, 2013 [facility] [address] [id number] [address] [place] [address], [place] [address] 18 Apr, 2013 [facility] [address] [id number] [address] [place] [address], [place] [address] 18 Apr, 2013 [facility] [address] [id number] [address] [place] [address], [place] [address] Apr, [facility] [address] [id number] [address] [place] [address] Apr, [facility] [address] [id number] [address] [place] [address] Apr, [facility] [address] [id number] [address] [place] [address] 08 Apr, 2013 [facility] [address] [id number] [address] [place] [address] Apr, [facility] [address] [id number] [address] [place] [address] 07 Apr, 2013 [facility] [address] [id number] [address] [place] [address] Apr, [facility] [address] [id number] [address] [place] [address] Apr, [facility] [address] [id number] [address] [place] [address] Mar, [facility] [address] [id number] [address] [place] [address] Mar, [facility] [address] [id number] [address] [place] [address], [place] [address] Mar, [facility] [address] [id number] [address] [place] [address], [place] [address] Mar, [facility] [address] [id number] [address] [place] [address], [place] [address] Mar, [facility] [address] [id number] [address] [place] [address], [place] [address] Mar, [facility] [address] [id number] [address] [place] [address], [place] [address] Mar, [facility] [address] [id number] [address] [place] [address], [place] [address] Mar, [facility] [address] [id number] [address] [place] [address], [place] [address] Mar, [facility] [address] [id number] [address] [place] [address], [place] [address] 15 Mar, 2013 [facility] [address] [id number] [address] [place] [address], [place] [address] 15 Mar, 2013 [facility] [address] [id number] [address] [place] [address], [place] [address] Mar, [facility] [address] [id number] [address] [place] [address], [place] [address] 30 Jan, 2013 [facility] [address] [id number] [address] [place] [address], [place] [address] 25 Jan, 2013 [facility] [address] [id number] [address] [place] [address], [place] [address] 20 Jan, 2013 [facility] [address] [id number] [address] [place] [address], [place] [address] 10 Jan, 2013 [facility] [address] [id number] [address] [place] [address], [place] [address] Dec, [facility] [address] [id number] [facility] [address] Dec, [facility] [address] [id number] [facility] [place] [place] [address] Dec, [facility] [address] [id number] [facility] [place] [place] [address] Dec, [facility] [address] [id number] [address] [place] [address], [place] [address] Dec, [facility] [address] [id number] [address] [place] [address], [place] [address] Dec, [facility] [address] [id number] [address] [place] [address], [place] [address] Dec, [facility] [address] [id number] [address] [place] [address], [place] [address] Dec, [facility] [address] [id number] [address] [place] [address], [place] [address] Dec, [facility] [address] [id number] [address] [place] [address], [place] [address] Nov, [facility] [address] [id number] [address] [place] [address], [place] [address] Nov, [facility] [address] [id number] [address] [place] [address], [place] [address] Nov, [facility] [address] [id number] [address] [place] [address], [place] [address] Nov, [facility] [address] [id number] [address] [place] [address], [place] [address] Nov, [facility] [address] [id number] [address] [place] [address], [place] [address] Nov, [facility] [address] [id number] [address] [place] [address], [place] [address] Nov, [facility] [address] [id number] [address] [place] [address], [place] [address] Nov, [facility] [address] [id number] [facility] [address] Oct, [facility] [address] [id number] [facility] [place] [place] [address] Oct, [facility] [address] [id number] [address] [place] [address], [place] [address] Oct, [facility] [address] [id number] [address] [place] [address], [place] [address] Oct, [facility] [address] [id number] [address] [place] [address], [place] [address] Oct, [facility] [address] [id number] [address] [place] [address], [place] [address] Oct, [facility] [address] [id number] [address] [place] [address], [place] [address] Oct, [facility] [address] [id number] [address] [place] [address], [place] [address] Oct, [facility] [address] [id number] [address] [place] [address], [place] [address] Oct, [facility] [address] [id number] [address] [place] [address], [place] [address] 18 Oct, 2012 [facility] [address] [id number] [address] [place] [address], [place] [address] 17 Oct, 2012 [facility] [address] [id number] [address] [place] [address], [place] [address] 14 Oct, 2012 [facility] [address] [id number] [address] [place] [address], [place] [address] 07 Oct, 2012 [facility] [address] [id number] [address] [place] [address], [place] [address] September, [facility] [address] [id number] [address] [place] [address], [place] [address] September, [facility] [address] [id number] [address] [place] [address], [place] [address] 15 Sep, 2012 [facility] [address] [id number] [address] [place] [address], [place] [address] Aug, [facility] [address] [id number] [address] [place] [address], [place] [address] 24 Aug, 2012 [facility] [address] [id number] [address] [place] [address], [place] [address] Aug, [facility] [address] [id number] [address] [place] [address], [place] [address] Aug, [facility] [address] [id number] [address] [place] [address], [place] [address] Aug, [facility] [address] [id number] [address] [place] [address], [place] [address] Aug, [facility] [address] [id number] [address] [place] [address], [place] [address] Aug, [facility] [address] [id number] [address] [place] [address], [place] [address] Jul, [facility] [address] [id number] [address] [place] [address], [place] [address] Jul, [facility] [address] [id number] [address] [place] [address], [place] [address] Jul, [facility] [address] [id number] [address] [place] [address], [place] [address] Jul, [facility] [address] [id number] [address] [place] [address], [place] [address] Jul, [facility] [address] [id number] [address] [place] [address], [place] [address] Jul, [facility] [address] [id number] [address] [place] [address], [place] [address] Jul, [facility] [address] [id number] [address] [place] [address], [place] [address] Jul, [facility] [address] [id number] [address] [place] [address], [place] [address] Jul, [facility] [address] [id number] [address] [place] [address], [place] [address] Jul, [facility] [address] [id number] [address] [place] [address], [place] [address] Jul, [facility] [address] [id number] [address] [place] [address], [place] [address] Jul, [facility] [address] [id number] [address] [place] [address], [place] [address] Jul, [facility] [address] [id number] [address] [place] [address], [place] [address] Jun, [facility] [address] [id number] [address] [place] [address], [place] [address] Jun, [facility] [address] [id number] [address] [place] [address], [place] [address] Jun, [facility] [address] [id number] [address] [place] [address], [place] [address] Jun, [facility] [address] [id number] [address] [place] [address], [place] [address] Jun, [facility] [address] [id number] [address] [place] [address], [place] [address] Jun, [facility] [address] [id number] [address] [place] [address], [place] [address] Jun, [facility] [address] [id number] [address] [place] [address], [place] [address] May, [facility] [address] [id number] [address] [place] [address], [place] [address] May, [facility] [address] [id number] [address] [place] [address], [place] [address] May, [facility] [address] [id number] [address] [place] [address], [place] [address] May, [facility] [address] [id number] [address] [place] [address], [place] [address] May, [facility] [address] [address] [id number] [address] [place] [address], [place] [address] May, [facility] [address] [id number] [address] [place] [address], [place] [address] May, [facility] [address] [id number] [address] [place] [address], [place] [address] May, [facility] [address] [id number] [address] [place] [address], [place] [address] May, [facility] [address] [id number] [address] [place] [address], [place] [address] May, [facility] [address] [id number] [address] [place] [address], [place] [address] Apr, [facility] [address] [id number] [address] [place] [address], [place] [address] Apr, [facility] [address] [id number] [address] [place] [address], [place] [address] Apr, [facility] [address] [id number] [address] [place] [address], [place] [address] Apr, [facility] [address] [id number] [address] [place] [address], [place] [address] Apr, [facility] [address] [id number] [address] [place] [address], [place] [address] Apr, [facility] [address] [id number] [address] [place] [address], [place] [address] Apr, [facility] [address] [id number] [address] [place] [address], [place] [address] Apr, [facility] [address] [id number] [address] [place] [address], [place] [address] Apr, [facility] [address] [id number] [address] [place] [address], [place] [address] Apr, [facility] [address] [id number] [address] [place] [address], [place] [address] Apr, [facility] [address] [id number] [address] [place] [address], [place] [address] Apr, [facility] [address] [id number] [address] [place] [address], [place] [address] Mar, [facility] [address] [id number] [address] [place] [address], [place] [address] Mar, [facility] [address] [id number] [address] [place] [address], [place] [address] Mar, [facility] [address] [id number] [address] [place] [address], [place] [address] Mar, [facility] [address] [id number] [address] [place] [address], [place] [address] Mar, [facility] [address] [id number] [address] [place] [address], [place] [address] Mar, [facility] [address] [id number] [address] [place] [address], [place] [address] Mar, [facility] [address] [id number] [address] [place] [address], [place] [address] Mar, [facility] [address] [id number] [address] [place] [address], [place] [address] Mar, [facility] [address] [id number] [address] [place] [address], [place] [address] Mar, [facility] [address] [id number] [address] [place] [address], [place] [address] Mar, [facility] [address] [id number] [address] [place] [address], [place] [address] 16 Mar, 2012 [facility] [address] [id number] [address] [place] [address] Mar, [facility] [address] [id number] [address] [place] [address], [place] [address] 12 Mar, 2012 [facility] [address] [id number] [address] [place] [address], [place] [address] 03 Mar, 2012 [facility] [address] [id number] [address] [place] [address], [place] [address] Mar, [facility] [address] [id number] [address] [place] [address], [place] [address] 25 Jan, 2012 [facility] [address] [id number] [address] [place] [address], [place] [address] 24 Jan, 2012 [facility] [address] [id number] [address] [place] [address], [place] [address] 22 Jan, 2012 [facility] [address] [id number] [address] [place] [address], [place] [address] 22 Jan, 2012 [facility] [address] [id number] [address] [place] [address], [place] [address] 21 Jan, 2012 [facility] [address] [id number] [address] [place] [address], [place] [address] 18 Jan, 2012 [facility] [address] [id number] [address] [place] [address], [place] [address] 14 Jan, 2012 [facility] [address] [id number] [address] [place] [address], [place] [address] 07 Jan, 2012 [facility] [address] [id number] [address] [place] [address], [place] [address] 15 Dec, 2011 [facility] [address] [id number] [address] [place] [address], [place] [address] 10 Dec, 2011 [facility] [address] [id number] [address] [place] [address], [place] [address] 09 Dec, 2011 [facility] [address] [id number] [address] [place] [address], [place] [address] 08 Dec, 2011 [facility] [address] [id number] [facility] [place] [address] Dec, [facility] [address] [id number] [address] [place] [address], [place] [address] Dec, [facility] [address] [id number] [address] [place] [address], [place] [address] Dec, [facility] [address] [id number] [address] [place] [address], [place] [address] Nov, [facility] [address] [id number] [address] [place] [address], [place] [address] Oct, [facility] [address] [id number] [address] [place] [address], [place] [address] Aug, [facility] [address] [id number] [address] [place] [address], [place] [address] Jul, [facility] [address] [id number] [address] [place] [address], [place] [address] Jul, [facility] [address] [id number] [address] [place] [address], [place] [address] 16 Jul, 2011 [facility] [address] [id number] [address] [place] [address], [place] [address] 14 Jul, 2011 [facility] [address] [id number] [address] [place] [address], [place] [address] 07 Jul, 2011 [facility] [address] [id number] [address] [place] [address], [place] [address] Jul, [facility] [address] [id number] [address] [place] [address], [place] [address] 21 Jul, 2011 [facility] [address] [id number] [address] [place] [address], [place] [address] 15 Jul, 2011 [facility] [address] [id number] [address] [place] [address], [place] [address] 13 Jul, 2011 [facility] [address] [id number] [address] [place] [address], [place] [address] Jul, [facility] [address] [id number] [address] [place] [address], [place] [address] Jul, [facility] [address] [id number] [address] [place] [address], [place] [address] Jun, [facility] [address] [id number] [address] [place] [address], [place] [address] Jun, [facility] [address] [id number] [address] [place] [address], [place] [address] Jun, [facility] [address] [id number] [address] [place] [address], [place] [address] Jun, [facility] [address] [id number] [address] [place] [address], [place] [address] Jun, [facility] [address] [id number] [address] [place] [address], [place] [address] Jun, [facility] [address] [id number] [address] [place] [address], [place] [address] Jun, [facility] [address] [id number] [address] [place] [address], [place] [address] May, [facility] [address] [id number] [address] [place] [address], [place] [address] May, [facility] [address] [id number] [address] [place] [address], [place] [address] May, [facility] [address] [id number] [address] [place] [address], [place] [address] May, [facility] [address] [id number] [address] [place] [address], [place] [address] May, [facility] [address] [id number] [address] [place] [address], [place] [address] May, [facility] [address] [id number] [address] [place] [address], [place] [address] May, [facility] [address] [id number] [address] [place] [address] May, [facility] [address] [id number] [address] [place] [address] May, [facility] [address] [id number] [address] [place] [address] May, [facility] [address] [id number] [address] [place] [address] Apr, [facility] [address] [id number] [address] [place] [address] Apr, [facility] [address] [id number] [address] [place] [address] Apr, [facility] [address] [id number] [address] [place] [address] Apr, [facility] [address] [id number] [address] [place] [address] Mar, [facility] [address] [id number] [address] [place] [address] Mar, [facility] [address] [id number] [address] [place] [address] Mar, [facility] [address] [id number] [address] [place] [address] Mar, IMMUNIZATIONS No Known Immunizations SOCIAL HISTORY [...]
--- OUTSIDE RECORDS SUMMARY | 2020-01-03 18:08 | XMS REPORT ---
Author Author Pattie VIEIAR Organization [facility] Address [address] [place] [address] Care Team Providers Care Route Driver Salesperson Name Role Phone REYNALDO VIEIRA Unavailable PROBLEMS Type Condition ICD9-CM Code [id number]-RX Code Onset Dates Condition S tatus SNOMED Code Problem Major depressive disorder in partial remission F32 .4 Active 07028437 Problem FRANCIS (generalized anxiety disorder) F41.1 Active 55112646 Problem Conversion disorder (or hysterical neurosis, conversion ty pe) F44.9 Active 76002683 Problem Thoracic disc herniation M51.24 Activ e 532348257 Problem Slow transit constipation K59.01 Acti ve 67570320 Problem Constipation, unspecified constipation type K59.00 Active 18069878 Problem Mild episode of recurrent major depressive disorder F33.0 Active 869634793 Problem High blood pressure I10 Active 53013528 Problem Paroxysmal tachycardia I47.9 Active 90930255 Problem Nonadherence to medication Z91.14 Act vivian 080525299 Problem Seizure disorder G40.909 Active 128 779248 Problem Restless leg syndrome G25.81 Active 11033288 Problem Other chronic pain G89.29 Active 8 6904892 Problem Mild intermittent asthma without complication J45. 20 Active 431865119 Problem Obesity (BMI 30.0-34.9) E66.9 Active [id number] ALLERGIES No Information ENCOUNTERS Encounter Location Date Diagnosis [facility] [address] [facility] [id number] [address] [place] [phone] September, [facility] [address] [facility] [id number] [address] [place] [phone] Aug, [facility] [address] [id number] [address] [place] [address] [id number] Aug, Dental examination Z01.20 [facility] [address] [id number] [address] [place] [address] [id number] 15 Aug, 2019 Dental examination Z01.20 an d Caries K02.9 [facility] [address] [id number] [address] [place] [address] Aug, [facility] [address] [id number] [address] [place] [address] Aug, [facility] [address] [facility] [id number] [address] [place] [address] Aug, Other chronic pain G89.29 an d Back muscle spasm M62.830 [facility] [address] [id number] [address] [place] [address] Aug, [facility] [address] [id number] [address] [place] [address] Aug, Major depressive disorder in partial remission F32.4 ; FRANCIS (generalized anxiety disorder) F41.1 ; Restless leg syndrome G25.81 and Nonadherence to medication Z91.14 [facility] [address] [id number] [address] [place] [phone] Aug, [facility] [address] [facility] [id number] [address] [place] [address] Jul, [facility] [address] [facility] [id number] [address] [place] [address] Jul, [facility] [address] [facility] [id number] [address] [place] [address] Jul, Major depressive disorder in partial remission F32.4 ; FRANCIS (generalized anxiety disorder) F41.1 ; Restless leg syndrome G25.81 and High blood pressure I10 [facility] [address] [facility] [id number] [address] [place] [phone] 17 Jul, 2019 [facility] [address] [facility] [id number] [address] [place] [address] Jul, [facility] [address] [facility] [id number] [address] [place] [address] Jun, [facility] [address] [id number] [address] [place] [address] May, [facility] [address] [id number] [address] [place] [address] Apr, [facility] [address] [id number] [address] [place] [address] Apr, [facility] [address] [facility] [id number] [address] [place] [address] Mar, [facility] [address] [facility] [id number] [address] [place] [address] Mar, Major depressive disorder in partial remission F32.4 ; FRANCIS (generalized anxiety disorder) F41.1 and Restless leg syndrome G25.81 [facility] [address] [facility] [id number] [address] [place] [phone] Mar, Obesity (BMI 30.0-34.9) E66. 9 [facility] [address] [id number] [address] [place] [address] Jan, [facility] [address] [facility] [id number] [address] [place] [phone] Jan, Burn T30.0 [facility] [address] [facility] [id number] [address] [place] [phone] Dec, [facility] [address] [facility] [id number] [address] [place] [address] Nov, [facility] [address] [id number] [address] [place] [address] Nov, [facility] [address] [id number] [address] [place] [address] [id number] Nov, Dental examination Z01.20 [facility] [address] [id number] [address] [place] [address] September, [facility] [address] [id number] [address] [place] [address] [id number] September, Decay, teeth K02.9 and Denta l examination Z01.20 [facility] [address] [id number] [address] [place] [address] [id number] September, Dental examination Z01.20 [facility] [address] [facility] [id number] [address] [place] [address] September, FRANCIS (generalized anxiety dis order) F41.1 ; Major depressive disorder in partial remission F32.4 and Restless leg syndrome G25.81 [facility] [address] [facility] [id number] [address] [place] [address] Aug, [facility] [address] [facility] [id number] [place] [address] Jul, [facility] [address] [facility] [id number] [address] [place] [address] Jul, Encounter to discuss test re sults Z71.2 [facility] [address] [place] [id number] [place] [address] Jul, Pelvic pain R10.2 ; Screenin g for breast cancer Z12.31 and Obesity (BMI 30.0-34.9) E66.9 [facility] [address] [place] [id number] [address] [place] [address] Jul, Mild intermittent asthma wit hout complication J45.20 [facility] [address] [place] [id number] [address] [place] [address] Jul, Major depressive disorder in partial remission F32.4 and FRANCIS (generalized anxiety disorder) F41.1 [facility] [address] [facility] [id number] [address] [place] [address] Jul, [facility] [address] [facility] [id number] [address] [place] [phone] Jun, [facility] [address] [place] [id number] [address] [place] [address] May, Major depressive disorder in partial remission F32.4 ; FRANCIS (generalized anxiety disorder) F41.1 and Restless leg syndrome G25.81 [facility] [address] [id number] [address] [place] [address] Apr, [facility] [address] [id number] [address] [place] [address] Mar, [facility] [address] [id number] [address] [place] [address] Jan, Pain in thoracic spine M54.6 and Other chronic pain G89.29 [facility] [address] [id number] [address] [place] [address] 14 Jan, 2018 [facility] [address] [id number] [address] [place] [phone] 11 Jan, 2018 Mild episode of recurrent ma saray depressive disorder F33.0 ; FRANCIS (generalized anxiety disorder) F41.1 and Restless leg syndrome G25.81 [facility] [address] [id number] [address] [place] [phone] Dec, [facility] [address] [id number] [address] [place] [address] Dec, Hospital discharge follow-up Z09 [facility] [address] [id number] [address] [place] [phone] Nov, [facility] [address] [id number] [address] [place] [address] Nov, [facility] [address] [id number] [address] [place] [address] September, [facility] [address] [id number] [address] [place] [address] September, [facility] [address] [id number] [address] [place] [address] September, Major depressive disorder in partial remission F32.4 ; FRANCIS (generalized anxiety disorder) F41.1 and Restless leg syndrome G25.81 [facility] [address] [id number] [address] [place] [address] September, [facility] [address] [id number] [address] [place] [phone] Jul, [facility] [address] [facility] [id number] [address] [place] [address] Jul, Dorsalgia, unspecified M54.9 [facility] [address] [facility] [id number] [address] [place] [address] Jul, Mild episode of recurrent ma saray depressive disorder F33.0 and FRANCIS (generalized anxiety disorder) F41.1 [facility] [address] [facility] [id number] [address] [place] [address] May, [facility] [address] [facility] [id number] [address] [place] [address] May, Dysuria R30.0 and Acute cyst itis with hematuria N30.01 [facility] [address] [facility] [id number] [address] [place] [address] Apr, [facility] [address] [facility] [id number] [address] [place] [address] Apr, Major depressive disorder in partial remission F32.4 and FRANCIS (generalized anxiety disorder) F41.1 [facility] [address] [facility] [id number] [address] [place] [address] Mar, Paroxysmal tachycardia I47.9 [facility] [address] [facility] [id number] [address] [place] [address] Mar, Paroxysmal tachycardia I47.9 and Pain of left lower extremity M79.605 [facility] [address] [facility] [id number] [address] [place] [address] Mar, FRANCIS (generalized anxiety dis order) F41.1 and Major depressive disorder in partial remission F32.4 [facility] [address] [facility] [id number] [address] [place] [address] Jan, [facility] [address] [place] [id number] [address] [place] [phone] 14 Jan, 2017 [facility] [address] [facility] [id number] [address] [place] [phone] 13 Jan, 2017 [facility] [address] [facility] [id number] [address] [place] [address] Dec, Constipation, unspecified co nstipation type K59.00 [facility] [address] [facility] [id number] [address] [place] [address] Dec, [facility] [address] [facility] [id number] [address] [place] [address] Nov, [facility] [address] [place] [id number] [address] [place] [address] Nov, Major depressive disorder in partial remission F32.4 and FRANCIS (generalized anxiety disorder) F41.1 [facility] [address] [facility] [id number] [address] [place] [address] Oct, Abdominal pain R10.9 and Slo w transit constipation K59.01 [facility] [address] [facility] [id number] [address] [place] [address] Aug, Major depressive disorder in partial remission F32.4 ; FRANCIS (generalized anxiety disorder) F41.1 ; Conversion disorder (or hysterical neurosis, conversion type) F44.9 ; Dorsalgia, unspecified M54.9 and Long-term use of high-risk medication Z79.899 [facility] [address] [place] [id number] [address] [place] [address] Aug, [facility] [address] [place] [id number] [address] [place] [address] Jul, Paroxysmal tachycardia I47.9 [facility] [address] [place] [id number] [address] [place] [address] 10 Jul, 2016 Paroxysmal tachycardia I47.9 [facility] [address] [place] [id number] [address] [place] [address] Jun, [facility] [address] [id number] [address] [place] [address] Jun, Major depressive disorder in partial remission F32.4 ; FRANCIS (generalized anxiety disorder) F41.1 and Conversion disorder (or hysterical neurosis, conversion type) F44.9 [facility] [address] [id number] [address] [place] [address] May, Pelvic pain R10.2 [facility] [address] [id number] [address] [place] [address] Apr, Gastroenteritis K52.9 [facility] [address] [id number] [address] [place] [id number] Apr, Blood in urine R31.9 and Acu te cystitis with hematuria N30.01 [facility] [address] [id number] [address] [place] [address] Apr, Major depressive disorder in partial remission F32.4 ; FRANCIS (generalized anxiety disorder) F41.1 and Conversion disorder (or hysterical neurosis, conversion type) F44.9 [facility] [address] [id number] [address] [place] [address] Apr, [place] [address] [id number] [address] [place] [address] Apr, Abnormal mammogram R92.8 [facility] [address] [id number] [address] [place] [address] Mar, [facility] [address] [id number] [address] [place] [address] Mar, Gastroenteritis K52.9 and Se izure disorder G40.909 [facility] [address] [id number] [address] [place] [address] Dec, [facility] [address] [id number] [address] [place] [address] Dec, Other headache syndrome G44. 89 [facility] [address] [id number] [address] [place] [address] Dec, [facility] [address] [id number] [address] [place] [address] Dec, Thoracic disc herniation M51 .24 [facility] [address] [id number] [address] [place] [address] Dec, [facility] [address] [id number] [address] [place] [address] Nov, Major depressive disorder in partial remission F32.4 and FRANCIS (generalized anxiety disorder) F41.1 [facility] [address] [id number] [address] [place] [address] Nov, [facility] [address] [id number] [address] [place] [address] Nov, Dorsalgia, unspecified M54.9 [facility] [address] [id number] [address] [place] [address] Oct, [facility] [address] [id number] [address] [place] [address] September, [facility] [address] [id number] [address] [place] [address] Aug, [facility] [address] [id number] [address] [place] [phone] Aug, Major depressive disorder in partial remission F32.4 and FRANCIS (generalized anxiety disorder) F41.1 [facility] [address] [id number] [address] [place] [address] Aug, [facility] [address] [id number] [address] [place] [address] 31 Jul, 2015 Abnormal mammogram R92.8 [facility] [address] [id number] [address] [place] [phone] Jul, [facility] [address] [id number] [address] [place] [address] Jul, [facility] [address] [id number] [address] [place] [address] Jul, [facility] [address] [id number] [address] [place] [address] Jul, [facility] [address] [facility] [id number] [address] [place] [address] Jul, [facility] [address] [facility] [id number] [address] [place] [address] Jul, [facility] [address] [facility] [id number] [address] [place] [address] Jun, Major depressive disorder in partial remission F32.4 and FRANCIS (generalized anxiety disorder) F41.1 [facility] [address] [facility] [id number] [address] [place] [address] Jun, [facility] [address] [facility] [id number] [address] [place] [address] May, [facility] [address] [facility] [id number] [address] [place] [address] Apr, [facility] [address] [facility] [id number] [address] [place] [address] Mar, Major depressive disorder, r ecurrent episode, moderate F33.1 ; PTSD (post-traumatic stress disorder) F43.10 and FRANCIS (generalized anxiety disorder) F41.1 [facility] [address] [facility] [id number] [address] [place] [address] Mar, [facility] [address] [facility] [id number] [address] [place] [address] Mar, [facility] [address] [facility] [id number] [address] [place] [address] Mar, [facility] [address] [facility] [id number] [address] [place] [address] Mar, [facility] [address] [facility] [id number] [address] [place] [address] 23 Jan, 2015 [facility] [address] [id number] [address] [place] [address] 15 Jan, 2015 [facility] [address] [id number] [address] [place] [address] 15 Jan, 2015 [facility] [address] [id number] [address] [place] [address] 14 Jan, 2015 Thoracic disc herniation 722 .11 [facility] [address] [id number] [address] [place] [address] Dec, [facility] [address] [id number] [address] [place] [address] Dec, [facility] [address] [id number] [address] [place] [address] Dec, [facility] [address] [id number] [address] [place] [address] Nov, [facility] [address] [id number] [address] [place] [address] Nov, Generalized anxiety disorder 300.02 ; Posttraumatic stress disorder 309.81 and Major depressive disorder, recurrent episode, moderate 296.32 [facility] [address] [id number] [address] [place] [address] Nov, [facility] [address] [id number] [address] [place] [address] Nov, [facility] [address] [id number] [address] [place] [address] Oct, [facility] [address] [id number] [address] [place] [phone] Oct, [facility] [address] [id number] [address] [place] [phone] Oct, [facility] [address] [id number] [address] [place] [phone] September, [facility] [address] [id number] [address] [place] [address], [place] [address] September, [facility] [address] [id number] [address] [place] [address], [place] [address] 14 Aug, 2014 [facility] [address] [id number] [address] [place] [address], [place] [address] Aug, [facility] [address] [id number] [address] [place] [address], [place] [address] 25 Jul, 2014 [facility] [address] [id number] [address] [place] [address], [place] [address] 25 Jul, 2014 [facility] [address] [id number] [address] [place] [address], [place] [address] 17 Jul, 2014 [facility] [address] [id number] [address] [place] [address], [place] [address] 17 Jul, 2014 [facility] [address] [id number] [address] [place] [address], [place] [address] 16 Jul, 2014 [facility] [address] [id number] [address] [place] [address], [place] [address] 16 Jul, 2014 [facility] [address] [id number] [address] [place] [address], [place] [address] 19 Jul, 2014 [facility] [address] [id number] [address] [place] [address], [place] [address] 19 Jul, 2014 [facility] [address] [id number] [address] [place] [address], [place] [address] 13 Jul, 2014 [facility] [address] [id number] [address] [place] [address], [place] [address] Jul, [facility] [address] [id number] [address] [place] [address], [place] [address] 15 Jun, 2014 [facility] [address] [id number] [address] [place] [address], [place] [address] 15 Jun, 2014 [facility] [address] [id number] [address] [place] [address], [place] [address] Jun, [facility] [address] [id number] [address] [place] [address], [place] [address] May, [facility] [address] [id number] [address] [place] [address], [place] [address] Apr, [facility] [address] [id number] [address] [place] [address], [place] [address] Apr, [facility] [address] [id number] [address] [place] [address], [place] [address] Apr, [facility] [address] [id number] [address] [place] [address], [place] [address] Apr, [facility] [address] [id number] [address] [place] [address], [place] [address] Apr, [facility] [address] [id number] [address] [place] [address], [place] [address] Apr, [facility] [address] [id number] [address] [place] [address], [place] [address] Apr, [facility] [address] [id number] [address] [place] [address], [place] [address] Apr, [facility] [address] [id number] [address] [place] [id number] Mar, [facility] [address] [id number] [address] [place] [id number] Mar, [facility] [address] [id number] [address] [place] [id number] Mar, [facility] [address] [id number] [address] [place] [address], [place] [address] Mar, [facility] [address] [id number] [address] [place] [id number] Mar, [facility] [address] [id number] [address] [place] [id number] Mar, [facility] [address] [id number] [address] [place] [address], [place] [address] 24 Mar, 2013 [facility] [address] [id number] [address] [place] [address], [place] [address] 23 Mar, 2013 [facility] [address] [id number] [address] [place] [address], [place] [address] 23 Mar, 2013 [facility] [address] [id number] [address] [place] [address], [place] [address] Mar, [facility] [address] [id number] [address] [place] [address], [place] [address] 17 Mar, 2013 [facility] [address] [id number] [address] [place] [address], [place] [address] 14 Mar, 2014 [facility] [address] [id number] [address] [place] [address], [place] [address] 14 Mar, 2014 [facility] [address] [id number] [address] [place] [address], [place] [address] Mar, 2013 [facility] [address] [id number] [address] [place] [address], [place] [address] 07 Mar, 2014 [facility] [address] [id number] [address] [place] [address], [place] [address] 06 Mar, 2013 [facility] [address] [id number] [address] [place] [address], [place] [address] 06 Mar, 2014 [facility] [address] [id number] [address] [place] [address], [place] [id number] 19 Jan, 2013 [facility] [address] [id number] [address] [place] [address], [place] [address] 19 Sep, 2013 [facility] [address] [id number] [address] [place] [address], [place] [address] 09 Sep, 2013 [facility] [address] [id number] [address] [place] [address], [place] [address] 09 Sep, 2013 [facility] [address] [id number] [address] [place] [address], [place] [address] 05 Sep, 2013 [facility] [address] [id number] [address] [place] [address], [place] [address] 05 Jan, 2013 [facility] [address] [id number] [address] [place] [address], [place] [address] Jan, 2013 [facility] [address] [id number] [address] [place] [address], [place] [address] Jan, 2013 [facility] [address] [id number] [address] [place] [address], [place] [address] Jan, 2013 [facility] [address] [id number] [address] [place] [address], [place] [address] Jan, 2013 [facility] [address] [id number] [address] [place] [address], [place] [address] Jan, 2013 [facility] [address] [id number] [address] [place] [address], [place] [address] Jan, 2013 [facility] [address] [id number] [address] [place] [address], [place] [address] Jan, 2013 [facility] [address] [id number] [address] [place] [address], [place] [address] Dec, [facility] [address] [id number] [address] [place] [address], [place] [address] Dec, [facility] [address] [id number] [address] [place] [address], [place] [address] Dec, [facility] [address] [id number] [address] [place] [address], [place] [address] Dec, [facility] [address] [id number] [address] [place] [address], [place] [address] Dec, [facility] [address] [id number] [address] [place] [address], [place] [address] Dec, [facility] [id number] Dec, [facility] [id number] Dec, [facility] [address] [id number] [facility] [place] [address] Dec, [facility] [address] [id number] [facility] [place] [address] Dec, [facility] [address] [id number] [facility] [place] [address] Dec, [facility] [address] [id number] [address] [place] [address], [place] [address] Dec, [facility] [address] [id number] [address] [place] [address], [place] [address] Nov, [facility] [address] [id number] [address] [place] [address], [place] [address] Nov, [facility] [address] [id number] [address] [place] [address], [place] [address] Nov, [facility] [address] [id number] [address] [place] [address], [place] [address] Nov, [facility] [address] [id number] [address] [place] [address], [place] [address] Nov, [facility] [address] [id number] [address] [place] [address], [place] [address] Nov, [facility] [address] [id number] [address] [place] [address], [place] [address] Nov, [facility] [address] [id number] [address] [place] [address], [place] [address] Nov, [facility] [address] [id number] [address] [place] [address], [place] [address] Nov, [facility] [address] [id number] [address] [place] [address], [place] [address] Nov, [facility] [address] [id number] [address] [place] [address], [place] [address] Nov, [facility] [address] [id number] [address] [place] [address], [place] [address] Nov, [facility] [address] [id number] [facility] [place] [address] Nov, [facility] [address] [id number] [facility] [place] [address] Oct, [facility] [address] [id number] [facility] [place] [address] Oct, [facility] [address] [id number] [address] [place] [address], [place] [address] Oct, [facility] [address] [id number] [facility] [place] [address] Oct, [facility] [address] [id number] [address] [place] [address], [place] [address] Oct, [facility] [address] [id number] [address] [place] [address], [place] [address] Oct, [facility] [address] [id number] [address] [place] [address], [place] [address] Oct, [facility] [address] [id number] [address] [place] [address], [place] [address] Oct, [facility] [address] [id number] [address] [place] [address], [place] [address] Oct, [facility] [address] [id number] [address] [place] [address], [place] [address] Oct, [facility] [address] [id number] [address] [place] [address], [place] [address] Oct, [facility] [address] [id number] [address] [place] [address], [place] [address] Oct, [facility] [address] [id number] [address] [place] [address], [place] [address] September, [facility] [address] [id number] [facility] [place] [address] September, [facility] [address] [id number] [facility] [place] [address] September, [facility] [address] [id number] [address] [place] [address], [place] [address] September, [facility] [address] [id number] [facility] [place] [address] Aug, [facility] [address] [id number] [address] [place] [address], [place] [address] Aug, [facility] [address] [id number] [address] [place] [address], [place] [address] Aug, [facility] [address] [id number] [address] [place] [address], [place] [address] Aug, [facility] [address] [id number] [address] [place] [address], [place] [address] Aug, [facility] [address] [id number] [address] [place] [address], [place] [address] Aug, [facility] [address] [id number] [address] [place] [address], [place] [address] Aug, [facility] [address] [id number] [address] [place] [address], [place] [address] Jul, [facility] [address] [id number] [address] [place] [address], [place] [address] Jul, [facility] [address] [id number] [address] [place] [address], [place] [address] Jul, [facility] [address] [id number] [address] [place] [address], [place] [address] 28 Jul, 2013 [facility] [address] [id number] [address] [place] [address], [place] [address] Jul, [facility] [address] [id number] [address] [place] [address], [place] [address] Jul, [facility] [address] [id number] [address] [place] [address], [place] [address] Jul, [facility] [address] [id number] [address] [place] [address], [place] [address] Jul, [facility] [address] [id number] [address] [place] [address], [place] [address] Jul, [facility] [address] [id number] [address] [place] [address], [place] [address] Jul, [facility] [address] [id number] [address] [place] [address], [place] [address] Jul, [facility] [address] [id number] [address] [place] [address], [place] [address] Jul, [facility] [address] [id number] [address] [place] [address], [place] [address] Jul, [facility] [address] [id number] [address] [place] [address], [place] [address] Jul, [facility] [address] [id number] [address] [place] [address], [place] [address] Jul, [facility] [address] [id number] [address] [place] [address], [place] [address] Jul, [facility] [address] [id number] [address] [place] [address], [place] [address] Jul, [facility] [address] [id number] [address] [place] [address], [place] [address] Jul, [facility] [address] [id number] [address] [place] [address], [place] [address] Jun, [facility] [address] [id number] [address] [place] [address], [place] [address] Jun, [facility] [address] [id number] [address] [place] [address], [place] [address] Jun, [facility] [address] [id number] [address] [place] [address], [place] [address] Jun, [facility] [address] [id number] [address] [place] [address], [place] [address] 14 Jun, 2013 [facility] [address] [id number] [address] [place] [address], [place] [address] 14 Jun, 2013 [facility] [address] [id number] [address] [place] [address], [place] [address] 14 Jun, 2013 [facility] [address] [id number] [address] [place] [address], [place] [address] 14 Jun, 2013 [facility] [address] [id number] [address] [place] [address], [place] [address] 14 Jun, 2013 [facility] [address] [id number] [address] [place] [address], [place] [address] 14 Jun, 2013 [facility] [address] [id number] [address] [place] [address], [place] [address] 27 May, 2013 [facility] [address] [id number] [address] [place] [address], [place] [address] 27 May, 2013 [facility] [address] [id number] [address] [place] [address], [place] [address] 26 May, 2013 [facility] [address] [id number] [address] [place] [address], [place] [address] 19 May, 2013 [facility] [address] [id number] [address] [place] [address], [place] [address] 19 May, 2013 [facility] [address] [id number] [address] [place] [address], [place] [address] 16 May, 2013 [facility] [address] [id number] [address] [place] [address], [place] [address] 16 May, 2013 [facility] [address] [id number] [address] [place] [address], [place] [address] 16 May, 2013 [facility] [address] [id number] [address] [place] [address], [place] [address] 16 May, 2013 [facility] [address] [id number] [address] [place] [address], [place] [address] 13 May, 2013 [facility] [address] [id number] [address] [place] [address], [place] [address] May, [facility] [address] [id number] [address] [place] [address], [place] [address] May, [facility] [address] [id number] [address] [place] [address] Apr, [facility] [address] [id number] [address] [place] [address] Apr, [facility] [address] [id number] [address] [place] [address], [place] [address] Apr, [facility] [address] [id number] [address] [place] [address] Apr, [facility] [address] [id number] [address] [place] [address] Apr, [facility] [address] [id number] [address] [place] [address] Apr, [facility] [address] [id number] [address] [place] [address] Apr, [facility] [address] [id number] [address] [place] [address] Apr, [facility] [address] [id number] [address] [place] [address] Apr, [facility] [address] [id number] [address] [place] [address] Apr, [facility] [address] [id number] [address] [place] [address] Apr, [facility] [address] [id number] [address] [place] [address] Mar, [facility] [address] [id number] [address] [place] [address] Mar, [facility] [address] [id number] [address] [place] [address] Mar, [facility] [address] [id number] [address] [place] [address], [place] [address] Mar, [facility] [address] [id number] [address] [place] [address], [place] [address] Mar, [facility] [address] [id number] [address] [place] [address], [place] [address] Mar, [facility] [address] [id number] [address] [place] [address], [place] [address] Mar, [facility] [address] [id number] [address] [place] [address], [place] [address] Mar, [facility] [address] [id number] [address] [place] [address], [place] [address] Mar, [facility] [address] [id number] [address] [place] [address], [place] [address] Mar, [facility] [address] [id number] [address] [place] [address], [place] [address] 15 Mar, 2013 [facility] [address] [id number] [address] [place] [address], [place] [address] Mar, [facility] [address] [id number] [address] [place] [address], [place] [address] 30 Jan, 2013 [facility] [address] [id number] [address] [place] [address], [place] [address] 25 Jan, 2013 [facility] [address] [id number] [address] [place] [address], [place] [address] 20 Jan, 2013 [facility] [address] [id number] [address] [place] [address], [place] [address] 10 Jan, 2013 [facility] [address] [id number] [address] [place] [address], [place] [address] Dec, [facility] [address] [id number] [address] [place] [address], [place] [address] Dec, [facility] [address] [id number] [facility] [place] [address] Dec, [facility] [address] [id number] [facility] [place] [address] Dec, [facility] [address] [id number] [facility] [place] [address] Dec, [facility] [address] [id number] [address] [place] [address], [place] [address] Dec, [facility] [address] [id number] [address] [place] [address], [place] [address] Dec, [facility] [address] [id number] [address] [place] [address], [place] [address] Dec, [facility] [address] [id number] [address] [place] [address], [place] [address] Dec, [facility] [address] [id number] [address] [place] [address], [place] [address] Nov, [facility] [address] [id number] [address] [place] [address], [place] [address] Nov, [facility] [address] [id number] [address] [place] [address], [place] [address] Nov, [facility] [address] [id number] [address] [place] [address], [place] [address] Nov, [facility] [address] [id number] [address] [place] [address], [place] [address] Nov, [facility] [address] [id number] [address] [place] [address], [place] [address] Nov, [facility] [address] [id number] [address] [place] [address], [place] [address] Nov, [facility] [address] [id number] [address] [place] [address], [place] [address] Nov, [facility] [address] [id number] [address] [place] [address], [place] [address] Oct, [facility] [address] [id number] [facility] [place] [address] Oct, [facility] [address] [id number] [address] [place] [address], [place] [address] Oct, [facility] [address] [id number] [address] [place] [address], [place] [address] Oct, [facility] [address] [id number] [address] [place] [address], [place] [address] Oct, [facility] [address] [id number] [address] [place] [address], [place] [address] Oct, [facility] [address] [id number] [address] [place] [address], [place] [address] Oct, [facility] [address] [id number] [address] [place] [address], [place] [address] Oct, [facility] [address] [id number] [address] [place] [address], [place] [address] Oct, [facility] [address] [id number] [address] [place] [address], [place] [address] 18 Oct, 2012 [facility] [address] [id number] [address] [place] [address], [place] [address] 17 Oct, 2012 [facility] [address] [id number] [address] [place] [address], [place] [address] 14 Oct, 2012 [facility] [address] [id number] [address] [place] [address], [place] [address] 07 Oct, 2012 [facility] [address] [id number] [address] [place] [address], [place] [address] September, [facility] [address] [id number] [address] [place] [address], [place] [address] September, [facility] [address] [id number] [address] [place] [address], [place] [address] September, [facility] [address] [id number] [address] [place] [address], [place] [address] Aug, [facility] [address] [id number] [address] [place] [address], [place] [address] Aug, [facility] [address] [id number] [address] [place] [address], [place] [address] Aug, [facility] [address] [id number] [address] [place] [address], [place] [address] Aug, [facility] [address] [id number] [address] [place] [address], [place] [address] Aug, [facility] [address] [id number] [address] [place] [address], [place] [address] Aug, [facility] [address] [id number] [address] [place] [address], [place] [address] Aug, [facility] [address] [id number] [address] [place] [address], [place] [address] Jul, [facility] [address] [id number] [address] [place] [address], [place] [address] Jul, [facility] [address] [id number] [address] [place] [address], [place] [address] Jul, [facility] [address] [id number] [address] [place] [address], [place] [address] Jul, [facility] [address] [id number] [address] [place] [address], [place] [address] Jul, [facility] [address] [id number] [address] [place] [address], [place] [address] Jul, [facility] [address] [id number] [address] [place] [address], [place] [address] Jul, [facility] [address] [id number] [address] [place] [address], [place] [address] Jul, [facility] [address] [id number] [address] [place] [address], [place] [address] Jul, [facility] [address] [id number] [address] [place] [address], [place] [address] Jul, [facility] [address] [id number] [address] [place] [address], [place] [address] Jul, [facility] [address] [id number] [address] [place] [address], [place] [address] Jul, [facility] [address] [id number] [address] [place] [address], [place] [address] Jul, [facility] [address] [id number] [address] [place] [address], [place] [address] 24 Jun, 2012 [facility] [address] [id number] [address] [place] [address], [place] [address] Jun, [facility] [address] [id number] [address] [place] [address], [place] [address] Jun, [facility] [address] [id number] [address] [place] [address], [place] [address] Jun, [facility] [address] [id number] [address] [place] [address], [place] [address] Jun, [facility] [address] [id number] [address] [place] [address], [place] [address] Jun, [facility] [address] [id number] [address] [place] [address], [place] [address] Jun, [facility] [address] [id number] [address] [place] [address], [place] [address] May, [facility] [address] [id number] [address] [place] [address], [place] [address] May, [facility] [address] [id number] [address] [place] [address], [place] [address] May, [facility] [address] [id number] [address] [place] [address], [place] [address] May, [facility] [address] [id number] [address] [place] [address], [place] [address] May, [facility] [address] [id number] [address] [place] [address], [place] [address] May, [facility] [address] [id number] [address] [place] [address], [place] [address] May, [facility] [address] [id number] [address] [place] [address], [place] [address] May, [facility] [address] [id number] [address] [place] [address], [place] [address] May, [facility] [address] [id number] [address] [place] [address], [place] [address] May, [facility] [address] [id number] [address] [place] [address], [place] [address] Apr, [facility] [address] [id number] [address] [place] [address], [place] [address] Apr, [facility] [address] [id number] [address] [place] [address], [place] [address] Apr, [facility] [address] [id number] [address] [place] [address], [place] [address] Apr, [facility] [address] [id number] [address] [place] [address], [place] [address] Apr, [facility] [address] [id number] [address] [place] [address], [place] [address] Apr, [facility] [address] [id number] [address] [place] [address], [place] [address] Apr, [facility] [address] [id number] [address] [place] [address], [place] [address] Apr, [facility] [address] [id number] [address] [place] [address], [place] [address] Apr, [facility] [address] [id number] [address] [place] [address], [place] [address] Apr, [facility] [address] [id number] [address] [place] [address], [place] [address] Apr, [facility] [address] [id number] [address] [place] [address], [place] [address] Apr, [facility] [address] [id number] [address] [place] [address], [place] [address] Mar, [facility] [address] [id number] [address] [place] [address], [place] [address] Mar, [facility] [address] [id number] [address] [place] [address], [place] [address] Mar, [facility] [address] [id number] [address] [place] [address], [place] [address] Mar, [facility] [address] [id number] [address] [place] [address], [place] [address] Mar, [facility] [address] [id number] [address] [place] [address], [place] [address] Mar, [facility] [address] [id number] [address] [place] [address], [place] [address] Mar, [facility] [address] [id number] [address] [place] [address], [place] [address] Mar, [facility] [address] [id number] [address] [place] [address], [place] [address] Mar, [facility] [address] [id number] [address] [place] [address], [place] [address] Mar, [facility] [address] [id number] [address] [place] [address], [place] [address] Mar, [facility] [address] [id number] [address] [place] [address], [place] [address] Mar, [facility] [address] [id number] [address] [place] [address], [place] [address] Mar, [facility] [address] [id number] [address] [place] [address] Mar, [facility] [address] [id number] [address] [place] [address], [place] [address] Mar, [facility] [address] [id number] [address] [place] [address], [place] [address] 02 Mar, 2012 [facility] [address] [id number] [address] [place] [address], [place] [address] 25 Jan, 2012 [facility] [address] [id number] [address] [place] [address], [place] [address] 24 Jan, 2012 [facility] [address] [id number] [address] [place] [address], [place] [address] 22 Jan, 2012 [facility] [address] [id number] [address] [place] [address], [place] [address] 22 Jan, 2012 [facility] [address] [id number] [address] [place] [address], [place] [address] 21 Jan, 2012 [facility] [address] [id number] [address] [place] [address], [place] [address] 18 Jan, 2012 [facility] [address] [id number] [address] [place] [address], [place] [address] 14 Jan, 2012 [facility] [address] [id number] [address] [place] [address], [place] [address] 07 Jan, 2012 [facility] [address] [id number] [address] [place] [address], [place] [address] 15 Dec, 2011 [facility] [address] [id number] [address] [place] [address], [place] [address] Dec, [facility] [address] [id number] [address] [place] [address], [place] [address] 09 Dec, 2011 [facility] [address] [id number] [address] [place] [address], [place] [address] 08 Dec, 2011 [facility] [address] [id number] [address] [place] [address], [place] [address] Dec, [facility] [address] [id number] [address] [place] [address], [place] [address] Dec, [facility] [address] [id number] [address] [place] [address], [place] [address] Dec, [facility] [address] [id number] [address] [place] [address], [place] [address] Nov, [facility] [address] [id number] [address] [place] [address], [place] [address] Oct, [facility] [address] [id number] [address] [place] [address], [place] [address] Aug, [facility] [address] [id number] [address] [place] [address], [place] [address] 22 Jul, 2011 [facility] [address] [id number] [address] [place] [address], [place] [address] Jul, [facility] [address] [id number] [address] [place] [address], [place] [address] 16 Jul, 2011 [facility] [address] [id number] [address] [place] [address], [place] [address] 14 Jul, 2011 [facility] [address] [id number] [address] [place] [address], [place] [address] 07 Jul, 2011 [facility] [address] [id number] [address] [place] [address], [place] [address] 02 Jul, 2011 [facility] [address] [id number] [address] [place] [address], [place] [address] 21 Jul, 2011 [facility] [address] [id number] [address] [place] [address], [place] [address] 15 Jul, 2011 [facility] [address] [id number] [address] [place] [address], [place] [address] 13 Jul, 2011 [facility] [address] [id number] [address] [place] [address], [place] [address] 03 Jul, 2011 [facility] [address] [id number] [address] [place] [address], [place] [address] Jul, [facility] [address] [id number] [address] [place] [address], [place] [address] Jun, [facility] [address] [id number] [address] [place] [address], [place] [address] Jun, [facility] [address] [id number] [address] [place] [address], [place] [address] Jun, [facility] [address] [id number] [address] [place] [address], [place] [address] Jun, [facility] [address] [id number] [address] [place] [address], [place] [address] Jun, [facility] [address] [id number] [address] [place] [address], [place] [address] Jun, [facility] [address] [id number] [address] [place] [address], [place] [address] Jun, [facility] [address] [id number] [address] [place] [address], [place] [address] May, [facility] [address] [id number] [address] [place] [address], [place] [address] May, [facility] [address] [id number] [address] [place] [address], [place] [address] May, [facility] [address] [id number] [address] [place] [address], [place] [address] 14 May, 2011 [facility] [address] [id number] [address] [place] [address], [place] [address] 14 May, 2011 [facility] [address] [id number] [address] [place] [address], [place] [address] May, [facility] [address] [id number] [address] [place] [address], [place] [address] May, [facility] [address] [id number] [address] [place] [address], [place] [address] May, [facility] [address] [id number] [address] [place] [address] May, [facility] [address] [id number] [address] [place] [address] May, [facility] [address] [id number] [address] [place] [address] Apr, [facility] [address] [id number] [address] [place] [address] Apr, [facility] [address] [id number] [address] [place] [address] Apr, [facility] [address] [id number] [address] [place] [address] Apr, [facility] [address] [id number] [address] [place] [address] Mar, [facility] [address] [id number] [address] [place] [address] Mar, [facility] [address] [id number] [address] [place] [address] Mar, [facility] [address] [id number] [address] [place] [address] Mar, IMMUNIZATIONS No Known Immunizations SOCIAL HISTORY [...]
--- OUTSIDE RECORDS SUMMARY | 2020-01-03 18:09 | XMS REPORT ---
Author Author Pattie Moffett Doctor Organization [facility] Address Unknown Phone Unavailable Care Team Providers Care Operations Research Scientist Name Role Phone Migration, Doctor Unavailable Unavailable PROBLEMS Type Condition ICD9-CM Code [id number] Code Onset Dates Condition S tatus SNOMED Code Problem Major depressive disorder in partial remission F32 .4 Active 29048618 Problem FRANCIS (generalized anxiety disorder) F41.1 Active 62646129 Problem Conversion disorder (or hysterical neurosis, conversion ty pe) F44.9 Active 35723497 Problem Thoracic disc herniation M51.24 Activ e 760997756 Problem Slow transit constipation K59.01 Acti ve 98253165 Problem Constipation, unspecified constipation type K59.00 Active 84780913 Problem Mild episode of recurrent major depressive disorder F33.0 Active 563330067 Problem High blood pressure I10 Active 38713540 Problem Paroxysmal tachycardia I47.9 Active 47534583 Problem Nonadherence to medication Z91.14 Act vivian 341848322 Problem Seizure disorder G40.909 Active 128 147139 Problem Restless leg syndrome G25.81 Active 29746548 Problem Other chronic pain G89.29 Active 8 9990117 Problem Mild intermittent asthma without complication J45. 20 Active 296754107 Problem Obesity (BMI 30.0-34.9) E66.9 Active [id number] ALLERGIES No Information ENCOUNTERS Encounter Location Date Diagnosis [facility] [address] [facility] [id number] [address] [place] [phone] September, [facility] [address] [facility] [id number] [address] [place] [phone] Aug, [facility] [address] [id number] [address] [place] [address] [id number] Aug, Dental examination Z01.20 [facility] [address] [id number] [address] [place] [address] [id number] Aug, Dental examination Z01.20 an d Caries K02.9 [facility] [address] [id number] [address] [place] [phone] Aug, [facility] [address] [id number] [address] [place] [phone] Aug, [facility] [address] [id number] [address] [place] [phone] Aug, Other chronic pain G89.29 an d Back muscle spasm M62.830 [facility] [address] [id number] [address] [place] [phone] Aug, [facility] [address] [id number] [address] [place] [phone] Aug, Major depressive disorder in partial remission F32.4 ; FRANCIS (generalized anxiety disorder) F41.1 ; Restless leg syndrome G25.81 and Nonadherence to medication Z91.14 [facility] [address] [id number] [address] [place] [phone] Aug, [facility] [address] [id number] [address] [place] [phone] Jul, [facility] [address] [id number] [address] [place] [phone] Jul, [facility] [address] [facility] [id number] [address] [place] [phone] 27 Jul, 2019 Major depressive disorder in partial remission F32.4 ; FRANCIS (generalized anxiety disorder) F41.1 ; Restless leg syndrome G25.81 and High blood pressure I10 [facility] [address] [id number] [address] [place] [phone] Jul, [facility] [address] [id number] [address] [place] [phone] Jul, [facility] [address] [facility] [id number] [address] [place] [phone] Jun, [facility] [address] [id number] [address] [place] [phone] May, [facility] [address] [id number] [address] [place] [phone] Apr, [facility] [address] [id number] [address] [place] [phone] Apr, [facility] [address] [facility] [id number] [address] [place] [phone] Mar, [facility] [address] [facility] [id number] [address] [place] [phone] Mar, Major depressive disorder in partial remission F32.4 ; FRANCIS (generalized anxiety disorder) F41.1 and Restless leg syndrome G25.81 [facility] [address] [facility] [id number] [address] [place] [phone] Mar, Obesity (BMI 30.0-34.9) E66. 9 [facility] [address] [facility] [id number] [address] [place] [phone] Jan, [facility] [address] [id number] [address] [place] [phone] Jan, Burn T30.0 [facility] [address] [facility] [id number] [address] [place] [phone] Dec, [facility] [address] [facility] [id number] [address] [place] [phone] Nov, [facility] [address] [id number] [address] [place] [phone] Nov, [facility] [address] [id number] [address] [place] [address] [id number] Nov, Dental examination Z01.20 [facility] [address] [id number] [address] [place] [phone] September, [facility] [address] [id number] [address] [place] [address] [id number] September, Decay, teeth K02.9 and Denta l examination Z01.20 [facility] [address] [id number] [address] [place] [address] [id number] September, Dental examination Z01.20 [facility] [address] [facility] [id number] [address] [place] [phone] September, FRANCIS (generalized anxiety dis order) F41.1 ; Major depressive disorder in partial remission F32.4 and Restless leg syndrome G25.81 [facility] [address] [facility] [id number] [address] [place] [phone] Aug, [facility] [address] [facility] [id number] [address] [place] [phone] Jul, [facility] [address] [facility] [id number] [address] [place] [phone] Jul, Encounter to discuss test re sults Z71.2 [place] [address] [phone] Jul, Pelvic pain R10.2 ; Screenin g for breast cancer Z12.31 and Obesity (BMI 30.0-34.9) E66.9 [facility] [address] [facility] [id number] [address] [place] [phone] Jul, Mild intermittent asthma wit hout complication J45.20 [facility] [address] [place] [id number] [address] [place] [phone] 12 Jul, 2018 Major depressive disorder in partial remission F32.4 and FRANCIS (generalized anxiety disorder) F41.1 [facility] [address] [facility] [id number] [address] [place] [phone] Jul, [facility] [address] [facility] [id number] [address] [place] [phone] Jun, [facility] [address] [place] [id number] [address] [place] [phone] May, Major depressive disorder in partial remission F32.4 ; FRANCIS (generalized anxiety disorder) F41.1 and Restless leg syndrome G25.81 [facility] [address] [id number] [address] [place] [phone] Apr, [facility] [address] [id number] [address] [place] [phone] Mar, [facility] [address] [id number] [address] [place] [phone] 21 Jan, 2018 Pain in thoracic spine M54.6 and Other chronic pain G89.29 [facility] [address] [id number] [address] [place] [phone] 14 Jan, 2018 [facility] [address] [id number] [address] [place] [phone] 11 Jan, 2018 Mild episode of recurrent ma saray depressive disorder F33.0 ; FRANCIS (generalized anxiety disorder) F41.1 and Restless leg syndrome G25.81 [facility] [address] [id number] [address] [place] [phone] Dec, [facility] [address] [id number] [address] [place] [phone] Dec, Hospital discharge follow-up Z09 [facility] [address] [id number] [address] [place] [phone] Nov, [facility] [address] [id number] [address] [place] [phone] Nov, [facility] [address] [id number] [address] [place] [phone] September, [facility] [address] [id number] [address] [place] [phone] September, [facility] [address] [id number] [address] [place] [phone] September, Major depressive disorder in partial remission F32.4 ; FRANCIS (generalized anxiety disorder) F41.1 and Restless leg syndrome G25.81 [facility] [address] [id number] [address] [place] [phone] September, [place] [id number] [facility] [id number] [address] [place] [phone] Jul, [facility] [address] [facility] [id number] [address] [place] [phone] Jul, Dorsalgia, unspecified M54.9 [facility] [address] [facility] [id number] [address] [place] [phone] Jul, Mild episode of recurrent ma saray depressive disorder F33.0 and FRANCIS (generalized anxiety disorder) F41.1 [facility] [address] [facility] [id number] [address] [place] [phone] May, [facility] [address] [facility] [id number] [address] [place] [phone] May, Dysuria R30.0 and Acute cyst itis with hematuria N30.01 [facility] [address] [facility] [id number] [address] [place] [phone] Apr, [facility] [address] [facility] [id number] [address] [place] [phone] Apr, Major depressive disorder in partial remission F32.4 and FRANCIS (generalized anxiety disorder) F41.1 [facility] [address] [facility] [id number] [address] [place] [phone] Mar, Paroxysmal tachycardia I47.9 [facility] [address] [facility] [id number] [address] [place] [phone] Mar, Paroxysmal tachycardia I47.9 and Pain of left lower extremity M79.605 [facility] [address] [facility] [id number] [address] [place] [phone] Mar, FRANCIS (generalized anxiety dis order) F41.1 and Major depressive disorder in partial remission F32.4 [facility] [address] [facility] [id number] [address] [place] [phone] Jan, [facility] [address] [facility] [id number] [address] [place] [phone] 14 Jan, 2017 [facility] [address] [id number] [address] [place] [phone] Jan, [facility] [address] [id number] [address] [place] [phone] Dec, Constipation, unspecified co nstipation type K59.00 [facility] [address] [id number] [address] [place] [phone] Dec, [facility] [address] [id number] [address] [place] [phone] Nov, [facility] [address] [id number] [address] [place] [phone] Nov, Major depressive disorder in partial remission F32.4 and FRANCIS (generalized anxiety disorder) F41.1 [facility] [address] [facility] [id number] [address] [place] [phone] Oct, Abdominal pain R10.9 and Slo w transit constipation K59.01 [facility] [address] [facility] [id number] [address] [place] [phone] Aug, Major depressive disorder in partial remission F32.4 ; FRANCIS (generalized anxiety disorder) F41.1 ; Conversion disorder (or hysterical neurosis, conversion type) F44.9 ; Dorsalgia, unspecified M54.9 and Long-term use of high-risk medication Z79.899 [place] [address] [facility] [id number] [address] [place] [phone] Aug, [facility] [address] [facility] [id number] [address] [place] [phone] Jul, Paroxysmal tachycardia I47.9 [place] [address] [facility] [id number] [address] [place] [phone] Jul, Paroxysmal tachycardia I47.9 [place] [address] [facility] [id number] [address] [place] [phone] Jun, [place] [address] [facility] [id number] [address] [place] [phone] Jun, Major depressive disorder in partial remission F32.4 ; FRANCIS (generalized anxiety disorder) F41.1 and Conversion disorder (or hysterical neurosis, conversion type) F44.9 [facility] [address] [id number] [address] [place] [phone] May, Pelvic pain R10.2 [facility] [address] [id number] [address] [place] [phone] Apr, Gastroenteritis K52.9 [facility] [address] [id number] [address] [place] [phone] Apr, Blood in urine R31.9 and Acu te cystitis with hematuria N30.01 [facility] [address] [id number] [address] [place] [phone] Apr, Major depressive disorder in partial remission F32.4 ; FRANCIS (generalized anxiety disorder) F41.1 and Conversion disorder (or hysterical neurosis, conversion type) F44.9 [facility] [address] [id number] [address] [place] [phone] Apr, [facility] [address] [id number] [address] [place] [phone] Apr, Abnormal mammogram R92.8 [facility] [address] [id number] [address] [place] [phone] Mar, [facility] [address] [id number] [address] [place] [phone] Mar, Gastroenteritis K52.9 and Se izure disorder G40.909 [facility] [address] [id number] [address] [place] [phone] Dec, [facility] [address] [id number] [address] [place] [phone] Dec, Other headache syndrome G44. 89 [facility] [address] [id number] [address] [place] [phone] Dec, [facility] [address] [id number] [address] [place] [phone] Dec, Thoracic disc herniation M51 .24 [facility] [address] [id number] [address] [place] [phone] Dec, [facility] [address] [id number] [address] [place] [phone] Nov, Major depressive disorder in partial remission F32.4 and FRANCIS (generalized anxiety disorder) F41.1 [facility] [address] [id number] [address] [place] [phone] Nov, [facility] [address] [id number] [address] [place] [phone] Nov, Dorsalgia, unspecified M54.9 [facility] [address] [id number] [address] [place] [phone] Oct, [facility] [address] [id number] [address] [place] [phone] September, [facility] [address] [id number] [address] [place] [phone] Aug, [facility] [address] [id number] [address] [place] [phone] Aug, Major depressive disorder in partial remission F32.4 and FRNACIS (generalized anxiety disorder) F41.1 [facility] [address] [id number] [address] [place] [phone] Aug, [facility] [address] [id number] [address] [place] [phone] Jul, Abnormal mammogram R92.8 [facility] [address] [id number] [address] [place] [phone] Jul, [facility] [address] [id number] [address] [place] [phone] Jul, [facility] [address] [id number] [address] [place] [phone] Jul, [facility] [address] [id number] [address] [place] [phone] Jul, [facility] [address] [id number] [address] [place] [phone] Jul, [facility] [address] [facility] [id number] [address] [place] [phone] Jul, [facility] [address] [facility] [id number] [address] [place] [phone] Jun, Major depressive disorder in partial remission F32.4 and FRANCIS (generalized anxiety disorder) F41.1 [facility] [address] [id number] [address] [place] [phone] Jun, [facility] [address] [facility] [id number] [address] [place] [phone] May, [facility] [address] [facility] [id number] [address] [place] [phone] Apr, [facility] [address] [id number] [address] [place] [phone] Mar, Major depressive disorder, r ecurrent episode, moderate F33.1 ; PTSD (post-traumatic stress disorder) F43.10 and FRANCIS (generalized anxiety disorder) F41.1 [facility] [address] [id number] [address] [place] [phone] Mar, [facility] [address] [id number] [address] [place] [phone] Mar, [facility] [address] [id number] [address] [place] [phone] Mar, [facility] [address] [facility] [id number] [address] [place] [phone] Mar, [facility] [address] [id number] [address] [place] [phone] Jan, [facility] [address] [id number] [address] [place] [phone] 15 Jan, 2015 [facility] [address] [id number] [address] [place] [phone] 15 Jan, 2015 [facility] [address] [id number] [address] [place] [phone] 14 Jan, 2015 Thoracic disc herniation 722 .11 [facility] [address] [id number] [address] [place] [phone] Dec, [facility] [address] [id number] [address] [place] [phone] Dec, [facility] [address] [id number] [address] [place] [phone] Dec, [facility] [address] [id number] [address] [place] [phone] Nov, [facility] [address] [id number] [address] [place] [phone] Nov, Generalized anxiety disorder 300.02 ; Posttraumatic stress disorder 309.81 and Major depressive disorder, recurrent episode, moderate 296.32 [facility] [address] [id number] [address] [place] [phone] Nov, [facility] [address] [id number] [address] [place] [phone] Nov, [facility] [address] [id number] [address] [place] [phone] Oct, [facility] [address] [id number] [address] [place] [phone] Oct, [facility] [address] [id number] [address] [place] [phone] Oct, [facility] [address] [id number] [address] [place] [phone] September, [facility] [address] [id number] [address] [place] [phone] September, [facility] [address] [id number] [address] [place] [address], [place] [id number] 14 Aug, 2014 [facility] [address] [id number] [address] [place] [address], [place] [id number] Aug, [facility] [address] [id number] [address] [place] [address], [place] [id number] Jul, [facility] [address] [id number] [address] [place] [address], [place] [id number] Jul, [facility] [address] [id number] [address] [place] [address], [place] [id number] Jul, [facility] [address] [id number] [address] [place] [address], [place] [id number] 17 Jul, 2014 [facility] [address] [id number] [address] [place] [address], [place] [id number] 16 Jul, 2014 [facility] [address] [id number] [address] [place] [address], [place] [id number] 16 Jul, 2014 [facility] [address] [id number] [address] [place] [address], [place] [id number] Jul, [facility] [address] [id number] [address] [place] [address], [place] [id number] Jul, [facility] [address] [id number] [address] [place] [address], [place] [id number] Jul, [facility] [address] [id number] [address] [place] [address], [place] [id number] Jul, [facility] [address] [id number] [address] [place] [address], [place] [id number] Jun, [facility] [address] [id number] [address] [place] [address], [place] [id number] Jun, [facility] [address] [id number] [address] [place] [address], [place] [id number] Jun, [facility] [address] [id number] [address] [place] [address], [place] [id number] May[facility] [facility] [address] [id number] [address] [place] [address], [place] [address] Apr, [facility] [address] [id number] [address] [place] [address], [place] [address] Apr, [facility] [address] [id number] [address] [place] [address], [place] [address] Apr, [facility] [address] [id number] [address] [place] [address], [place] [address] Apr, [facility] [address] [id number] [address] [place] [address], [place] [address] Apr, [facility] [address] [id number] [address] [place] [address], [place] [address] Apr, [facility] [address] [id number] [address] [place] [address], [place] [address] Apr, [facility] [address] [id number] [address] [place] [address], [place] [address] Apr, [facility] [address] [id number] [address] [place] [address], [place] [address] Mar, [facility] [address] [id number] [address] [place] [address], [place] [address] Mar, [facility] [address] [id number] [address] [place] [address], [place] [address] Mar, [facility] [address] [id number] [address] [place] [address], [place] [address] Mar, [facility] [address] [id number] [address] [place] [address], [place] [address] Mar, [facility] [address] [id number] [address] [place] [address], [place] [address] Mar, [facility] [address] [id number] [address] [place] [address], [place] [address] Mar, [facility] [address] [id number] [address] [place] [address], [place] [address] Mar, [facility] [address] [id number] [address] [place] [address], [place] [address] 23 Mar, 2014 [facility] [address] [id number] [address] [place] [address], [place] [address] Mar, [facility] [address] [id number] [address] [place] [address], [place] [address] 17 Mar, 2014 [facility] [address] [id number] [address] [place] [address], [place] [address] 14 Mar, 2014 [facility] [address] [id number] [address] [place] [address], [place] [address] 14 Mar, 2014 [facility] [address] [id number] [address] [place] [address], [place] [address] Mar, [facility] [address] [id number] [address] [place] [address], [place] [address] Mar, [facility] [address] [id number] [address] [place] [address], [place] [address] Mar, [facility] [address] [id number] [address] [place] [address], [place] [address] 06 Mar, 2014 [facility] [address] [id number] [address] [place] [address], [place] [address] 19 Jan, 2013 [facility] [address] [id number] [address] [place] [address], [place] [address] 19 Jan, 2013 [facility] [address] [id number] [address] [place] [address], [place] [address] 09 Sep, 2013 [facility] [address] [id number] [address] [place] [address], [place] [address] 09 Sep, 2013 [facility] [address] [id number] [address] [place] [address], [place] [address] 05 Sep, 2013 [facility] [address] [id number] [address] [place] [address], [place] [address] 05 Jan, 2013 [facility] [address] [id number] [address] [place] [address], [place] [address] 05 Jan, 2013 [facility] [address] [id number] [address] [place] [address], [place] [address] Jan, 2013 [facility] [address] [id number] [address] [place] [address], [place] [address] Jan, 2013 [facility] [address] [id number] [address] [place] [address], [place] [address] Jan, 2013 [facility] [address] [id number] [address] [place] [address], [place] [address] Jan, 2013 [facility] [address] [id number] [address] [place] [address], [place] [address] Jan, 2013 [facility] [address] [id number] [address] [place] [address], [place] [address] Jan, 2013 [facility] [address] [id number] [address] [place] [address], [place] [address] Dec, [facility] [address] [id number] [address] [place] [address], [place] [address] Dec, [facility] [address] [id number] [address] [place] [address], [place] [address] Dec, [facility] [address] [id number] [address] [place] [address], [place] [address] Dec, [facility] [address] [id number] [address] [place] [address], [place] [address] Dec, [facility] [address] [id number] [address] [place] [address], [place] [address] Dec, [facility] [address] [place] [id number] Dec, [facility] [address] [place] [id number] Dec, [facility] [address] [id number] [address] [place] [id number] Dec, [facility] [address] [id number] [facility] [place] [address] Dec, [facility] [address] [id number] [facility] [place] [address] Dec, [facility] [address] [id number] [facility] [place] [address] Dec, [facility] [address] [id number] [facility] [place] [address] Nov, [facility] [address] [id number] [facility] [place] [address] Nov, [facility] [address] [id number] [address] [place] [address], [place] [address] Nov, [facility] [address] [id number] [address] [place] [address], [place] [address] Nov, [facility] [address] [id number] [address] [place] [address], [place] [address] Nov, [facility] [address] [id number] [address] [place] [address], [place] [address] Nov, [facility] [address] [id number] [address] [place] [address], [place] [address] Nov, [facility] [address] [id number] [address] [place] [address], [place] [address] Nov, [facility] [address] [id number] [address] [place] [address], [place] [address] Nov, [facility] [address] [id number] [address] [place] [address], [place] [address] Nov, [facility] [address] [id number] [address] [place] [address], [place] [address] Nov, [facility] [address] [id number] [address] [place] [address], [place] [address] Nov, [facility] [address] [id number] [facility] [place] [address] Nov, [facility] [address] [id number] [address] [place] [address], [place] [address] Oct, [facility] [address] [id number] [facility] [place] [address] Oct, [facility] [address] [id number] [address] [place] [address], [place] [address] Oct, [facility] [address] [id number] [address] [place] [address], [place] [address] Oct, [facility] [address] [id number] [address] [place] [address], [place] [address] Oct, [facility] [address] [id number] [address] [place] [address], [place] [address] Oct, [facility] [address] [id number] [address] [place] [address], [place] [address] Oct, [facility] [address] [id number] [address] [place] [address], [place] [address] Oct, [facility] [address] [id number] [address] [place] [address], [place] [address] Oct, [facility] [address] [id number] [address] [place] [address], [place] [address] Oct, [facility] [address] [id number] [address] [place] [address], [place] [address] Oct, [facility] [address] [id number] [address] [place] [address], [place] [address] Oct, [facility] [address] [id number] [address] [place] [address], [place] [address] September, [facility] [address] [id number] [address] [place] [address], [place] [address] September, [facility] [address] [id number] [address] [place] [address], [place] [address] September, [facility] [address] [id number] [facility] [place] [address] September, [facility] [address] [id number] [facility] [place] [address] Aug, [facility] [address] [id number] [facility] [place] [address] Aug, [facility] [address] [id number] [address] [place] [address], [place] [address] Aug, [facility] [address] [id number] [facility] [place] [address] Aug, [facility] [address] [id number] [address] [place] [address], [place] [address] Aug, [facility] [address] [id number] [address] [place] [address], [place] [address] Aug, [facility] [address] [id number] [address] [place] [address], [place] [address] Aug, [facility] [address] [id number] [address] [place] [address], [place] [address] Jul, [facility] [address] [id number] [address] [place] [address], [place] [address] Jul, [facility] [address] [id number] [address] [place] [address], [place] [address] Jul, [facility] [address] [id number] [address] [place] [address], [place] [address] Jul, [facility] [address] [id number] [address] [place] [address], [place] [address] Jul, [facility] [address] [id number] [address] [place] [address], [place] [address] Jul, [facility] [address] [id number] [address] [place] [address], [place] [address] 18 Jul, 2013 [facility] [address] [id number] [address] [place] [address], [place] [address] Jul, [facility] [address] [id number] [address] [place] [address], [place] [address] 18 Jul, 2013 [facility] [address] [id number] [address] [place] [address], [place] [address] 18 Jul, 2013 [facility] [address] [id number] [address] [place] [address], [place] [address] 18 Jul, 2013 [facility] [address] [id number] [address] [place] [address], [place] [address] 18 Jul, 2013 [facility] [address] [id number] [address] [place] [address], [place] [address] 14 Jul, 2013 [facility] [address] [id number] [address] [place] [address], [place] [address] 14 Jul, 2013 [facility] [address] [id number] [address] [place] [address], [place] [address] Jul, [facility] [address] [id number] [address] [place] [address], [place] [address] Jul, [facility] [address] [id number] [address] [place] [address], [place] [address] Jul, [facility] [address] [id number] [address] [place] [address], [place] [address] 11 Jul, 2013 [facility] [address] [id number] [address] [place] [address], [place] [address] Jun, [facility] [address] [id number] [address] [place] [address], [place] [address] 31 Jun, 2013 [facility] [address] [id number] [address] [place] [address], [place] [address] 15 Jun, 2013 [facility] [address] [id number] [address] [place] [address], [place] [address] 15 Jun, 2013 [facility] [address] [id number] [address] [place] [address], [place] [id number] 14 Jun, 2013 [facility] [address] [id number] [address] [place] [address], [place] [address] 14 Jun, 2013 [facility] [address] [id number] [address] [place] [address], [place] [address] 14 Jun, 2013 [facility] [address] [id number] [address] [place] [address], [place] [address] 14 Jun, 2013 [facility] [address] [id number] [address] [place] [address], [place] [address] 14 Jun, 2013 [facility] [address] [id number] [address] [place] [address], [place] [address] 14 Jun, 2013 [facility] [address] [id number] [address] [place] [address], [place] [address] 27 May, 2013 [facility] [address] [id number] [address] [place] [address], [place] [address] 27 May, 2013 [facility] [address] [id number] [address] [place] [address], [place] [address] 26 May, 2013 [facility] [address] [id number] [address] [place] [address], [place] [address] 19 May, 2013 [facility] [address] [id number] [address] [place] [address], [place] [address] 19 May, 2013 [facility] [address] [id number] [address] [place] [address], [place] [address] 16 May, 2013 [facility] [address] [id number] [address] [place] [address], [place] [address] 16 May, 2013 [facility] [address] [id number] [address] [place] [address], [place] [address] 16 May, 2013 [facility] [address] [id number] [address] [place] [address], [place] [address] 16 May, 2013 [facility] [address] [id number] [address] [place] [address], [place] [address] 13 May, 2013 [facility] [address] [id number] [address] [place] [id number] May, [facility] [address] [id number] [address] [place] [address], [place] [address] May, [facility] [address] [id number] [address] [place] [id number] Apr, [facility] [address] [id number] [address] [place] [address], [place] [address] Apr, [facility] [address] [id number] [address] [place] [id number] 18 Apr, 2013 [facility] [address] [id number] [address] [place] [address], [place] [address] Apr, [facility] [address] [id number] [address] [place] [id number] Apr, [facility] [address] [id number] [address] [place] [id number] Apr, [facility] [address] [id number] [address] [place] [id number] 08 Apr, 2013 [facility] [address] [id number] [address] [place] [id number] 07 Apr, 2013 [facility] [address] [id number] [address] [place] [address] 07 Apr, 2013 [facility] [address] [id number] [address] [place] [id number] Apr, [facility] [address] [id number] [address] [place] [id number] Apr, [facility] [address] [id number] [address] [place] [id number] Mar, [facility] [address] [id number] [address] [place] [id number] Mar, [facility] [address] [id number] [address] [place] [id number] Mar, [facility] [address] [id number] [address] [place] [address], [place] [address] Mar, [facility] [address] [id number] [address] [place] [address], [place] [id number] Mar, [facility] [address] [id number] [address] [place] [address], [place] [address] Mar, [facility] [address] [id number] [address] [place] [address], [place] [address] Mar, [facility] [address] [id number] [address] [place] [address], [place] [address] Mar, [facility] [address] [id number] [address] [place] [address], [place] [id number] 18 Mar, 2013 [facility] [address] [id number] [address] [place] [address], [place] [id number] 15 Mar, 2013 [facility] [address] [id number] [address] [place] [address], [place] [address] 15 Mar, 2013 [facility] [address] [id number] [address] [place] [address], [place] [address] Mar, [facility] [address] [id number] [address] [place] [address], [place] [id number] 30 Jan, 2013 [facility] [address] [id number] [address] [place] [address], [place] [address] 25 Jan, 2013 [facility] [address] [id number] [address] [place] [address], [place] [address] 20 Jan, 2013 [facility] [address] [id number] [address] [place] [address], [place] [address] Jan, [facility] [address] [id number] [address] [place] [address], [place] [address] Dec, [facility] [address] [id number] [address] [place] [address], [place] [address] Dec, [facility] [address] [id number] [address] [place] [address], [place] [address] Dec, [facility] [address] [id number] [address] [place] [address], [place] [id number] Dec, [facility] [address] [id number] [address] [place] [address], [place] [id number] Dec, [facility] [address] [id number] [address] [place] [address], [place] [address] Dec, [facility] [address] [id number] [address] [place] [address], [place] [address] Dec, [facility] [address] [id number] [address] [place] [address], [place] [address] Dec, [facility] [address] [id number] [address] [place] [address], [place] [id number] Dec, [facility] [address] [id number] [address] [place] [address], [place] [id number] Nov, [facility] [address] [id number] [address] [place] [address], [place] [address] Nov, [facility] [address] [id number] [address] [place] [address], [place] [id number] Nov, [facility] [address] [id number] [address] [place] [address], [place] [address] Nov, [facility] [address] [id number] [address] [place] [address], [place] [address] Nov, [facility] [address] [id number] [address] [place] [address], [place] [address] Nov, [facility] [address] [id number] [address] [place] [address], [place] [id number] Nov, [facility] [address] [id number] [address] [place] [address], [place] [id number] Nov, [facility] [address] [id number] [address] [place] [address], [place] [address] Oct, [facility] [address] [id number] [address] [place] [address], [place] [id number] 27 Oct, 2012 [facility] [address] [id number] [address] [place] [address], [place] [id number] Oct, [facility] [address] [id number] [address] [place] [address], [place] [id number] Oct, [facility] [address] [id number] [address] [place] [address], [place] [id number] Oct, [facility] [address] [id number] [address] [place] [address], [place] [id number] Oct, [facility] [address] [id number] [address] [place] [address], [place] [address] Oct, [facility] [address] [id number] [address] [place] [address], [place] [id number] Oct, [facility] [place] [address] [id number] [address] [place] [address], [place] [address] Oct, [facility] [place] [address] [id number] [address] [place] [address], [place] [id number] 18 Oct, 2012 [facility] [place] [address] [id number] [address] [place] [address], [place] [address] 17 Oct, 2012 [facility] [place] [address] [id number] [address] [place] [address], [place] [id number] 14 Oct, 2012 [facility] [place] [address] [id number] [address] [place] [address], [place] [id number] 07 Oct, 2012 [facility] [address] [id number] [address] [place] [address], [place] [address] September, [facility] [address] [id number] [address] [place] [address], [place] [address] September, [facility] [address] [id number] [address] [place] [address], [place] [address] September, [facility] [address] [id number] [address] [place] [address], [place] [address] Aug, [facility] [address] [id number] [address] [place] [address], [place] [id number] Aug, [facility] [address] [id number] [address] [place] [address], [place] [id number] Aug, [facility] [address] [id number] [address] [place] [address], [place] [address] Aug, [facility] [address] [id number] [address] [place] [address], [place] [id number] Aug, [facility] [address] [id number] [address] [place] [address], [place] [id number] Aug, [facility] [address] [id number] [address] [place] [address], [place] [id number] Aug, [facility] [address] [id number] [address] [place] [address], [place] [id number] Jul, [facility] [address] [id number] [address] [place] [address], [place] [id number] Jul, [facility] [address] [id number] [address] [place] [address], [place] [id number] Jul, [facility] [address] [id number] [address] [place] [address], [place] [id number] Jul, [facility] [address] [id number] [address] [place] [address], [place] [id number] Jul, [facility] [address] [id number] [address] [place] [address], [place] [address] Jul, [facility] [address] [id number] [address] [place] [address], [place] [id number] Jul, [facility] [address] [id number] [address] [place] [address], [place] [address] Jul, [facility] [address] [id number] [address] [place] [address], [place] [id number] Jul, [facility] [address] [id number] [address] [place] [address], [place] [id number] Jul, [facility] [place] [address] [id number] [address] [place] [address], [place] [address] Jul, [facility] [address] [id number] [address] [place] [address], [place] [id number] Jul, [facility] [place] [address] [id number] [address] [place] [address], [place] [id number] Jul, [facility] [address] [address] [id number] [address] [place] [address], [place] [id number] 24 Jun, 2012 [facility] [place] [address] [id number] [address] [place] [address], [place] [address] Jun, [facility] [place] [address] [id number] [address] [place] [address], [place] [address] Jun, [facility] [place] [address] [id number] [address] [place] [address], [place] [address] 17 Jun, 2012 [facility] [place] [address] [id number] [address] [place] [address], [place] [address] 15 Jun, 2012 [facility] [place] [address] [id number] [address] [place] [address], [place] [id number] 14 Jun, 2012 [facility] [address] [id number] [address] [place] [address], [place] [id number] Jun, [facility] [address] [id number] [address] [place] [address], [place] [address] May, [facility] [place] [address] [id number] [address] [place] [address], [place] [id number] May, [facility] [place] [address] [id number] [address] [place] [address], [place] [address] May, [facility] [address] [id number] [address] [place] [address], [place] [address] May, [facility] [place] [address] [id number] [address] [place] [address], [place] [address] May, [facility] [address] [id number] [address] [place] [address], [place] [address] May, [facility] [address] [id number] [address] [place] [address], [place] [address] May, [facility] [address] [id number] [address] [place] [address], [place] [address] May, [facility] [address] [id number] [address] [place] [address], [place] [address] May, [facility] [address] [id number] [address] [place] [address], [place] [address] May, [facility] [address] [id number] [address] [place] [address], [place] [address] Apr, [facility] [address] [id number] [address] [place] [address], [place] [address] Apr, [facility] [address] [id number] [address] [place] [address], [place] [id number] Apr, [facility] [address] [id number] [address] [place] [address], [place] [id number] Apr, [facility] [address] [id number] [address] [place] [address], [place] [address] Apr, [facility] [address] [id number] [address] [place] [address], [place] [address] Apr, [facility] [address] [id number] [address] [place] [address], [place] [address] Apr, [facility] [address] [id number] [address] [place] [address], [place] [id number] Apr, [facility] [address] [id number] [address] [place] [address], [place] [address] Apr, [facility] [address] [id number] [address] [place] [address], [place] [address] Apr, [facility] [address] [id number] [address] [place] [address], [place] [address] Apr, [facility] [address] [id number] [address] [place] [address], [place] [address] Apr, [facility] [address] [id number] [address] [place] [id number] Mar, [facility] [address] [id number] [address] [place] [address], [place] [address] Mar, [facility] [address] [id number] [address] [place] [phone] Mar, [facility] [address] [id number] [address] [place] [address], [place] [address] Mar, [facility] [address] [id number] [address] [place] [id number] Mar, [facility] [address] [id number] [address] [place] [id number] Mar, [facility] [address] [id number] [address] [place] [phone] Mar, [facility] [address] [id number] [address] [place] [id number] Mar, [facility] [address] [id number] [address] [place] [phone] Mar, [facility] [address] [id number] [address] [place] [phone] Mar, [facility] [address] [id number] [address] [place] [id number] Mar, [facility] [address] [id number] [address] [place] [phone] Mar, [facility] [address] [id number] [address] [place] [phone] Mar, [facility] [address] [id number] [address] [place] [id number] Mar, [facility] [address] [id number] [address] [place] [address], [place] [address] 03 Mar, 2012 [facility] [address] [id number] [address] [place] [address], [place] [address] 02 Mar, 2012 [facility] [address] [id number] [address] [place] [address], [place] [address] 25 Jan, 2011 [facility] [address] [id number] [address] [place] [address], [place] [id number] 24 Jan, 2011 [facility] [address] [id number] [address] [place] [address], [place] [id number] 22 Jan, 2011 [facility] [address] [id number] [address] [place] [address], [place] [address] 22 Jan, 2012 [facility] [address] [id number] [address] [place] [address], [place] [id number] 21 Jan, 2012 [facility] [address] [id number] [address] [place] [address], [place] [address] 18 Jan, 2012 [facility] [address] [id number] [address] [place] [address], [place] [address] 14 Jan, 2012 [facility] [address] [id number] [address] [place] [address], [place] [id number] 07 Jan, 2012 [facility] [address] [id number] [address] [place] [address], [place] [id number] 15 Dec, 2011 [facility] [address] [id number] [address] [place] [address], [place] [address] Dec, [facility] [address] [id number] [address] [place] [address], [place] [address] Dec, [facility] [address] [id number] [address] [place] [address], [place] [address] 08 Dec, 2011 [facility] [address] [id number] [address] [place] [address], [place] [id number] 06 Dec, 2011 [facility] [address] [id number] [address] [place] [address], [place] [address] Dec, [facility] [address] [id number] [address] [place] [address], [place] [id number] Dec, [facility] [address] [id number] [address] [place] [address], [place] [address] Nov, [facility] [address] [id number] [address] [place] [address], [place] [id number] Oct, [facility] [address] [id number] [address] [place] [address], [place] [address] Aug, [facility] [address] [id number] [address] [place] [address], [place] [address] Jul, [facility] [address] [id number] [address] [place] [address], [place] [address] Jul, [facility] [address] [id number] [address] [place] [address], [place] [id number] 16 Jul, 2011 [facility] [address] [id number] [address] [place] [address], [place] [address] 14 Jul, 2011 [facility] [address] [id number] [address] [place] [address], [place] [address] Jul, [facility] [address] [id number] [address] [place] [address], [place] [address] Jul, [facility] [address] [id number] [address] [place] [address], [place] [address] Jul, [facility] [address] [id number] [address] [place] [address], [place] [address] 15 Jul, 2011 [facility] [address] [id number] [address] [place] [address], [place] [id number] 13 Jul, 2011 [facility] [address] [id number] [address] [place] [address], [place] [id number] 03 Jul, 2011 [facility] [address] [id number] [address] [place] [address], [place] [id number] 02 Jul, 2011 [facility] [address] [id number] [address] [place] [address], [place] [address] Jun, [facility] [address] [id number] [address] [place] [address], [place] [id number] Jun, [facility] [address] [id number] [address] [place] [address], [place] [id number] Jun, [facility] [address] [id number] [address] [place] [address], [place] [address] Jun, [facility] [address] [id number] [address] [place] [address], [place] [address] Jun, [facility] [address] [id number] [address] [place] [address], [place] [id number] Jun, [facility] [address] [id number] [address] [place] [address], [place] [address] Jun, [facility] [place] [address] [id number] [address] [place] [address], [place] [id number] May, [facility] [address] [id number] [address] [place] [address], [place] [id number] May, [facility] [place] [address] [id number] [address] [place] [address], [place] [address] May, [facility] [address] [id number] [address] [place] [address], [place] [address] 14 May, 2011 [facility] [address] [id number] [address] [place] [address], [place] [id number] 14 May, 2011 [facility] [address] [id number] [address] [place] [address], [place] [address] May, [facility] [address] [id number] [address] [place] [address], [place] [id number] May, [facility] [address] [id number] [address] [place] [address], [place] [address] May, [facility] [address] [id number] [address] [place] [address], [place] [address] 06 May, 2011 [facility] [address] [id number] [address] [place] [id number] May, [facility] [address] [id number] [address] [place] [id number] Apr, [facility] [address] [id number] [address] [place] [phone] Apr, [facility] [address] [id number] [address] [place] [phone] Apr, [facility] [address] [id number] [address] [place] [id number] Apr, [facility] [address] [id number] [address] [place] [id number] Mar, [facility] [address] [id number] [address] [place] [phone] Mar, [facility] [address] [id number] [address] [place] [id number] Mar, [facility] [address] [id number] [address] [place] [id number] Mar, IMMUNIZATIONS No Known Immunizations SOCIAL HISTORY [...]
--- OUTSIDE RECORDS SUMMARY | 2020-01-03 18:10 | XMS REPORT ---
Author Author Pattie Moffett Doctor Organization [facility] Address Unknown Phone Unavailable Care Team Providers Care Quality Systems Technician Name Role Phone Migration, Doctor Unavailable Unavailable PROBLEMS Type Condition ICD9-CM Code [id number] Code Onset Dates Condition S tatus SNOMED Code Problem Major depressive disorder in partial remission F32 .4 Active 73594706 Problem FRANCIS (generalized anxiety disorder) F41.1 Active 73155777 Problem Conversion disorder (or hysterical neurosis, conversion ty pe) F44.9 Active 18693800 Problem Thoracic disc herniation M51.24 Activ e 153166566 Problem Slow transit constipation K59.01 Acti ve 29485125 Problem Constipation, unspecified constipation type K59.00 Active 71694239 Problem Mild episode of recurrent major depressive disorder F33.0 Active 764093732 Problem High blood pressure I10 Active 27331244 Problem Paroxysmal tachycardia I47.9 Active 26665455 Problem Nonadherence to medication Z91.14 Act vivian 475434848 Problem Seizure disorder G40.909 Active 128 417071 Problem Restless leg syndrome G25.81 Active 20048294 Problem Other chronic pain G89.29 Active 8 1542304 Problem Mild intermittent asthma without complication J45. 20 Active 841997992 Problem Obesity (BMI 30.0-34.9) E66.9 Active [id number] ALLERGIES No Information ENCOUNTERS Encounter Location Date Diagnosis [facility] [address] [facility] [id number] [address] [place] [phone] September, [facility] [address] [facility] [id number] [address] [place] [phone] Aug, [facility] [address] [id number] [address] [place] [address] [id number] Aug, Dental examination Z01.20 [facility] [address] [id number] [address] [place] [address] [id number] Aug, Dental examination Z01.20 an d Caries K02.9 [facility] [address] [id number] [address] [place] [id number] Aug, [facility] [address] [id number] [address] [place] [id number] Aug, [facility] [address] [id number] [address] [place] [phone] Aug, Other chronic pain G89.29 an d Back muscle spasm M62.830 [facility] [address] [id number] [address] [place] [id number] Aug, [facility] [address] [id number] [address] [place] [phone] Aug, Major depressive disorder in partial remission F32.4 ; FRANCIS (generalized anxiety disorder) F41.1 ; Restless leg syndrome G25.81 and Nonadherence to medication Z91.14 [facility] [address] [id number] [address] [place] [phone] Aug, [facility] [address] [id number] [address] [place] [id number] Jul, [facility] [address] [id number] [address] [place] [id number] Jul, [facility] [address] [facility] [id number] [address] [place] [phone] 27 Jul, 2019 Major depressive disorder in partial remission F32.4 ; FRANCIS (generalized anxiety disorder) F41.1 ; Restless leg syndrome G25.81 and High blood pressure I10 [facility] [address] [id number] [address] [place] [phone] Jul, [facility] [address] [id number] [address] [place] [id number] Jul, [facility] [address] [facility] [id number] [address] [place] [id number] Jun, [facility] [address] [id number] [address] [place] [phone] May, [facility] [address] [id number] [address] [place] [phone] Apr, [facility] [address] [id number] [address] [place] [phone] Apr, [facility] [address] [facility] [id number] [address] [place] [phone] Mar, [facility] [address] [facility] [id number] [address] [place] [phone] Mar, Major depressive disorder in partial remission F32.4 ; FRANCIS (generalized anxiety disorder) F41.1 and Restless leg syndrome G25.81 [facility] [address] [facility] [id number] [address] [place] [phone] Mar, Obesity (BMI 30.0-34.9) E66. 9 [facility] [address] [facility] [id number] [address] [place] [phone] Jan, [facility] [address] [id number] [address] [place] [phone] Jan, Burn T30.0 [facility] [address] [facility] [id number] [address] [place] [phone] Dec, [facility] [address] [facility] [id number] [address] [place] [phone] Nov, [facility] [address] [id number] [address] [place] [phone] Nov, [facility] [address] [id number] [address] [place] [address] [id number] Nov, Dental examination Z01.20 [facility] [address] [id number] [address] [place] [phone] September, [facility] [address] [id number] [address] [place] [address] [id number] September, Decay, teeth K02.9 and Denta l examination Z01.20 [facility] [address] [id number] [address] [place] [address] [id number] September, Dental examination Z01.20 [facility] [address] [facility] [id number] [address] [place] [phone] September, FRANCIS (generalized anxiety dis order) F41.1 ; Major depressive disorder in partial remission F32.4 and Restless leg syndrome G25.81 [facility] [address] [facility] [id number] [address] [place] [phone] Aug, [facility] [address] [facility] [id number] [address] [place] [phone] Jul, [facility] [address] [facility] [id number] [address] [place] [phone] Jul, Encounter to discuss test re sults Z71.2 [place] [address] [phone] Jul, Pelvic pain R10.2 ; Screenin g for breast cancer Z12.31 and Obesity (BMI 30.0-34.9) E66.9 [facility] [address] [facility] [id number] [address] [place] [phone] Jul, Mild intermittent asthma wit hout complication J45.20 [facility] [address] [place] [id number] [address] [place] [phone] 12 Jul, 2018 Major depressive disorder in partial remission F32.4 and FRANCIS (generalized anxiety disorder) F41.1 [facility] [address] [facility] [id number] [address] [place] [phone] Jul, [facility] [address] [facility] [id number] [address] [place] [phone] Jun, [facility] [address] [place] [id number] [address] [place] [phone] May, Major depressive disorder in partial remission F32.4 ; FRANCIS (generalized anxiety disorder) F41.1 and Restless leg syndrome G25.81 [facility] [address] [id number] [address] [place] [phone] Apr, [facility] [address] [id number] [address] [place] [phone] Mar, [facility] [address] [id number] [address] [place] [phone] 21 Jan, 2018 Pain in thoracic spine M54.6 and Other chronic pain G89.29 [facility] [address] [id number] [address] [place] [phone] 14 Jan, 2018 [facility] [address] [id number] [address] [place] [phone] 11 Jan, 2018 Mild episode of recurrent ma saray depressive disorder F33.0 ; FRANCIS (generalized anxiety disorder) F41.1 and Restless leg syndrome G25.81 [facility] [address] [id number] [address] [place] [phone] Dec, [facility] [address] [id number] [address] [place] [phone] Dec, Hospital discharge follow-up Z09 [facility] [address] [id number] [address] [place] [phone] Nov, [facility] [address] [id number] [address] [place] [phone] Nov, [facility] [address] [id number] [address] [place] [phone] September, [facility] [address] [id number] [address] [place] [phone] September, [facility] [address] [id number] [address] [place] [phone] September, Major depressive disorder in partial remission F32.4 ; FRANCIS (generalized anxiety disorder) F41.1 and Restless leg syndrome G25.81 [facility] [address] [id number] [address] [place] [phone] September, [place] [id number] [facility] [id number] [address] [place] [phone] Jul, [facility] [address] [facility] [id number] [address] [place] [phone] Jul, Dorsalgia, unspecified M54.9 [facility] [address] [facility] [id number] [address] [place] [phone] Jul, Mild episode of recurrent ma saray depressive disorder F33.0 and FRANCIS (generalized anxiety disorder) F41.1 [facility] [address] [facility] [id number] [address] [place] [phone] May, [facility] [address] [facility] [id number] [address] [place] [id number] May, Dysuria R30.0 and Acute cyst itis with hematuria N30.01 [facility] [address] [facility] [id number] [address] [place] [phone] Apr, [facility] [address] [facility] [id number] [address] [place] [phone] Apr, Major depressive disorder in partial remission F32.4 and FRANCIS (generalized anxiety disorder) F41.1 [facility] [address] [facility] [id number] [address] [place] [phone] Mar, Paroxysmal tachycardia I47.9 [facility] [address] [facility] [id number] [address] [place] [phone] Mar, Paroxysmal tachycardia I47.9 and Pain of left lower extremity M79.605 [facility] [address] [facility] [id number] [address] [place] [phone] Mar, FRANCIS (generalized anxiety dis order) F41.1 and Major depressive disorder in partial remission F32.4 [facility] [address] [facility] [id number] [address] [place] [phone] Jan, [facility] [address] [facility] [id number] [address] [place] [phone] 14 Jan, 2017 [facility] [address] [id number] [address] [place] [id number] Jan, [facility] [address] [id number] [address] [place] [id number] Dec, Constipation, unspecified co nstipation type K59.00 [facility] [address] [id number] [address] [place] [phone] Dec, [facility] [address] [id number] [address] [place] [phone] Nov, [facility] [address] [id number] [address] [place] [phone] Nov, Major depressive disorder in partial remission F32.4 and FRANCIS (generalized anxiety disorder) F41.1 [facility] [address] [facility] [id number] [address] [place] [phone] Oct, Abdominal pain R10.9 and Slo w transit constipation K59.01 [facility] [address] [facility] [id number] [address] [place] [phone] Aug, Major depressive disorder in partial remission F32.4 ; FRANCIS (generalized anxiety disorder) F41.1 ; Conversion disorder (or hysterical neurosis, conversion type) F44.9 ; Dorsalgia, unspecified M54.9 and Long-term use of high-risk medication Z79.899 [place] [id number] [facility] [id number] [address] [place] [phone] Aug, [facility] [address] [facility] [id number] [address] [place] [id number] Jul, Paroxysmal tachycardia I47.9 [place] [address] [facility] [id number] [address] [place] [phone] Jul, Paroxysmal tachycardia I47.9 [place] [address] [facility] [id number] [address] [place] [phone] Jun, [place] [id number] [facility] [id number] [address] [place] [phone] Jun, Major depressive disorder in partial remission F32.4 ; FRANCIS (generalized anxiety disorder) F41.1 and Conversion disorder (or hysterical neurosis, conversion type) F44.9 [facility] [address] [id number] [address] [place] [phone] May, Pelvic pain R10.2 [facility] [address] [id number] [address] [place] [phone] Apr, Gastroenteritis K52.9 [facility] [address] [id number] [address] [place] [phone] Apr, Blood in urine R31.9 and Acu te cystitis with hematuria N30.01 [facility] [address] [id number] [address] [place] [id number] Apr, Major depressive disorder in partial remission F32.4 ; FRANCIS (generalized anxiety disorder) F41.1 and Conversion disorder (or hysterical neurosis, conversion type) F44.9 [facility] [address] [id number] [address] [place] [phone] Apr, [facility] [address] [id number] [address] [place] [phone] Apr, Abnormal mammogram R92.8 [facility] [address] [id number] [address] [place] [phone] Mar, [facility] [address] [id number] [address] [place] [phone] Mar, Gastroenteritis K52.9 and Se izure disorder G40.909 [facility] [address] [id number] [address] [place] [phone] Dec, [facility] [address] [id number] [address] [place] [phone] Dec, Other headache syndrome G44. 89 [facility] [address] [id number] [address] [place] [phone] Dec, [facility] [address] [id number] [address] [place] [phone] Dec, Thoracic disc herniation M51 .24 [facility] [address] [id number] [address] [place] [phone] Dec, [facility] [address] [id number] [address] [place] [phone] Nov, Major depressive disorder in partial remission F32.4 and FRANCIS (generalized anxiety disorder) F41.1 [facility] [address] [id number] [address] [place] [phone] Nov, [facility] [address] [id number] [address] [place] [phone] Nov, Dorsalgia, unspecified M54.9 [facility] [address] [id number] [address] [place] [phone] Oct, [facility] [address] [id number] [address] [place] [phone] September, [facility] [address] [id number] [address] [place] [phone] Aug, [facility] [address] [id number] [address] [place] [phone] Aug, Major depressive disorder in partial remission F32.4 and FRANCIS (generalized anxiety disorder) F41.1 [facility] [address] [id number] [address] [place] [phone] Aug, [facility] [address] [id number] [address] [place] [phone] Jul, Abnormal mammogram R92.8 [facility] [address] [id number] [address] [place] [id number] Jul, [facility] [address] [id number] [address] [place] [phone] Jul, [facility] [address] [id number] [address] [place] [phone] Jul, [facility] [address] [id number] [address] [place] [phone] Jul, [facility] [address] [id number] [address] [place] [phone] Jul, [facility] [address] [facility] [id number] [address] [place] [phone] Jul, [facility] [address] [facility] [id number] [address] [place] [phone] Jun, Major depressive disorder in partial remission F32.4 and FRANCIS (generalized anxiety disorder) F41.1 [facility] [address] [id number] [address] [place] [phone] Jun, [facility] [address] [facility] [id number] [address] [place] [phone] May, [facility] [address] [facility] [id number] [address] [place] [phone] Apr, [facility] [address] [id number] [address] [place] [phone] Mar, Major depressive disorder, r ecurrent episode, moderate F33.1 ; PTSD (post-traumatic stress disorder) F43.10 and FRANCIS (generalized anxiety disorder) F41.1 [facility] [address] [id number] [address] [place] [phone] Mar, [facility] [address] [id number] [address] [place] [phone] Mar, [facility] [address] [id number] [address] [place] [phone] Mar, [facility] [address] [facility] [id number] [address] [place] [phone] Mar, [facility] [address] [id number] [address] [place] [phone] Jan, [facility] [address] [id number] [address] [place] [phone] 15 Jan, 2015 [facility] [address] [id number] [address] [place] [phone] 15 Jan, 2015 [facility] [address] [id number] [address] [place] [phone] 14 Jan, 2015 Thoracic disc herniation 722 .11 [facility] [address] [id number] [address] [place] [phone] Dec, [facility] [address] [id number] [address] [place] [phone] Dec, [facility] [address] [id number] [address] [place] [phone] Dec, [facility] [address] [id number] [address] [place] [phone] Nov, [facility] [address] [id number] [address] [place] [phone] Nov, Generalized anxiety disorder 300.02 ; Posttraumatic stress disorder 309.81 and Major depressive disorder, recurrent episode, moderate 296.32 [facility] [address] [id number] [address] [place] [phone] Nov, [facility] [address] [id number] [address] [place] [phone] Nov, [facility] [address] [id number] [address] [place] [id number] Oct, [facility] [address] [id number] [address] [place] [phone] Oct, [facility] [address] [id number] [address] [place] [phone] Oct, [facility] [address] [id number] [address] [place] [phone] September, [facility] [address] [id number] [address] [place] [phone] September, [facility] [address] [id number] [address] [place] [address], [place] [address] 14 Aug, 2014 [facility] [address] [id number] [address] [place] [address], [place] [address] Aug, [facility] [address] [id number] [address] [place] [address], [place] [phone] Jul, [facility] [address] [id number] [address] [place] [address], [place] [id number] Jul, [facility] [address] [id number] [address] [place] [address], [place] [id number] Jul, [facility] [address] [id number] [address] [place] [address], [place] [id number] 17 Jul, 2014 [facility] [address] [id number] [address] [place] [address], [place] [id number] 16 Jul, 2014 [facility] [address] [id number] [address] [place] [address], [place] [id number] 16 Jul, 2014 [facility] [address] [id number] [address] [place] [address], [place] [id number] Jul, [facility] [address] [id number] [address] [place] [address], [place] [id number] Jul, [facility] [address] [id number] [address] [place] [address], [place] [id number] Jul, [facility] [address] [id number] [address] [place] [address], [place] [id number] Jul, [facility] [address] [id number] [address] [place] [address], [place] [id number] Jun, [facility] [address] [id number] [address] [place] [address], [place] [id number] Jun, [facility] [address] [id number] [address] [place] [address], [place] [id number] Jun, [facility] [address] [id number] [address] [place] [address], [place] [id number] May, [facility] [address] [id number] [address] [place] [address], [place] [id number] Apr, [facility] [address] [id number] [address] [place] [address], [place] [id number] Apr, [facility] [address] [id number] [address] [place] [address], [place] [id number] Apr, [facility] [address] [id number] [address] [place] [address], [place] [id number] Apr, [facility] [address] [id number] [address] [place] [address], [place] [id number] Apr, [facility] [address] [id number] [address] [place] [address], [place] [id number] Apr, [facility] [address] [id number] [address] [place] [address], [place] [id number] Apr, [facility] [address] [id number] [address] [place] [address], [place] [id number] Apr, [facility] [address] [id number] [address] [place] [address], [place] [id number] Mar, [facility] [address] [id number] [address] [place] [address], [place] [id number] Mar, [facility] [address] [id number] [address] [place] [address], [place] [id number] Mar, [facility] [address] [id number] [address] [place] [address], [place] [id number] Mar, [facility] [address] [id number] [address] [place] [address], [place] [id number] Mar, [facility] [address] [id number] 56 [place] [address], [place] [address] Mar, [facility] [address] [id number] [address] [place] [address], [place] [address] Mar, [facility] [address] [id number] [address] [place] [address], [place] [address] Mar, [facility] [address] [id number] [address] [place] [address], [place] [address] 23 Mar, 2014 [facility] [address] [id number] [address] [place] [address], [place] [address] Mar, [facility] [address] [id number] [address] [place] [address], [place] [address] 17 Mar, 2014 [facility] [address] [id number] [address] [place] [address], [place] [address] 14 Mar, 2014 [facility] [address] [id number] [address] [place] [address], [place] [address] 14 Mar, 2014 [facility] [address] [id number] [address] [place] [address], [place] [address] Mar, [facility] [address] [id number] [address] [place] [address], [place] [address] Mar, [facility] [address] [id number] [address] [place] [address], [place] [address] Mar, [facility] [address] [id number] [address] [place] [address], [place] [address] 06 Mar, 2014 [facility] [address] [id number] [address] [place] [address], [place] [address] 19 Jan, 2013 [facility] [address] [id number] [address] [place] [address], [place] [address] 19 Jan, 2013 [facility] [address] [id number] [address] [place] [address], [place] [address] 09 Sep, 2013 [facility] [address] [id number] [address] [place] [address], [place] [address] 09 Sep, 2013 [facility] [address] [id number] [address] [place] [address], [place] [address] 05 Sep, 2013 [facility] [address] [id number] [address] [place] [address], [place] [address] 05 Jan, 2013 [facility] [address] [id number] [address] [place] [address], [place] [address] 05 Jan, 2013 [facility] [address] [id number] [address] [place] [address], [place] [address] Jan, 2013 [facility] [address] [id number] [address] [place] [address], [place] [address] Jan, 2013 [facility] [address] [id number] [address] [place] [address], [place] [address] Jan, 2013 [facility] [address] [id number] [address] [place] [address], [place] [address] Jan, 2013 [facility] [address] [id number] [address] [place] [address], [place] [address] Jan, 2013 [facility] [address] [id number] [address] [place] [address], [place] [address] Jan, 2013 [facility] [address] [id number] [address] [place] [address], [place] [address] Dec, [facility] [address] [id number] [address] [place] [address], [place] [address] Dec, [facility] [address] [id number] [address] [place] [address], [place] [address] Dec, [facility] [address] [id number] [address] [place] [address], [place] [address] Dec, [facility] [address] [id number] [address] [place] [address], [place] [address] Dec, [facility] [address] [id number] [address] [place] [address], [place] [address] Dec, [facility] [address] [place] [id number] Dec, [facility] [address] [place] [id number] Dec, [facility] [address] [id number] [address] [place] [id number] Dec, [facility] [address] [id number] [facility] [place] [address] Dec, [facility] [address] [id number] [facility] [place] [address] Dec, [facility] [address] [id number] [facility] [place] [address] Dec, [facility] [address] [id number] [facility] [place] [address] Nov, [facility] [address] [id number] [facility] [place] [address] Nov, [facility] [address] [id number] [address] [place] [address], [place] [address] Nov, [facility] [address] [id number] [address] [place] [address], [place] [address] Nov, [facility] [address] [id number] [address] [place] [address], [place] [address] Nov, [facility] [address] [id number] [address] [place] [address], [place] [address] Nov, [facility] [address] [id number] [address] [place] [address], [place] [address] Nov, [facility] [address] [id number] [address] [place] [address], [place] [address] Nov, [facility] [address] [id number] [address] [place] [address], [place] [address] Nov, [facility] [address] [id number] [address] [place] [address], [place] [address] Nov, [facility] [address] [id number] [address] [place] [address], [place] [address] Nov, [facility] [address] [id number] [address] [place] [address], [place] [address] Nov, [facility] [address] [id number] [facility] [place] [address] Nov, [facility] [address] [id number] [address] [place] [address], [place] [address] Oct, [facility] [address] [id number] [facility] [place] [address] Oct, [facility] [address] [id number] [address] [place] [address], [place] [address] Oct, [facility] [address] [id number] [address] [place] [address], [place] [address] Oct, [facility] [address] [id number] [address] [place] [address], [place] [address] Oct, [facility] [address] [id number] [address] [place] [address], [place] [address] Oct, [facility] [address] [id number] [address] [place] [address], [place] [address] Oct, [facility] [address] [id number] [address] [place] [address], [place] [address] Oct, [facility] [address] [id number] [address] [place] [address], [place] [address] Oct, [facility] [address] [id number] [address] [place] [address], [place] [address] Oct, [facility] [address] [id number] [address] [place] [address], [place] [address] Oct, [facility] [address] [id number] [address] [place] [address], [place] [address] Oct, [facility] [address] [id number] [address] [place] [address], [place] [address] September, [facility] [address] [id number] [address] [place] [address], [place] [address] September, [facility] [address] [id number] [address] [place] [address], [place] [address] September, [facility] [address] [id number] [facility] [place] [address] September, [facility] [address] [id number] [facility] [place] [address] Aug, [facility] [address] [id number] [facility] [place] [address] Aug, [facility] [address] [id number] [address] [place] [address], [place] [address] Aug, [facility] [address] [id number] [facility] [place] [address] Aug, [facility] [address] [id number] [address] [place] [address], [place] [address] Aug, [facility] [address] [id number] [address] [place] [address], [place] [address] Aug, [facility] [address] [id number] [address] [place] [address], [place] [address] Aug, [facility] [address] [id number] [address] [place] [address], [place] [address] Jul, [facility] [address] [id number] [address] [place] [address], [place] [address] Jul, [facility] [address] [id number] [address] [place] [address], [place] [address] Jul, [facility] [address] [id number] [address] [place] [address], [place] [address] Jul, [facility] [address] [id number] [address] [place] [address], [place] [address] Jul, [facility] [address] [id number] [address] [place] [address], [place] [address] Jul, [facility] [address] [id number] [address] [place] [address], [place] [address] 18 Jul, 2013 [facility] [address] [id number] [address] [place] [address], [place] [address] Jul, [facility] [address] [id number] [address] [place] [address], [place] [address] 18 Jul, 2013 [facility] [address] [id number] [address] [place] [address], [place] [address] 18 Jul, 2013 [facility] [address] [id number] [address] [place] [address], [place] [address] 18 Jul, 2013 [facility] [address] [id number] [address] [place] [address], [place] [address] 18 Jul, 2013 [facility] [address] [id number] [address] [place] [address], [place] [address] 14 Jul, 2013 [facility] [address] [id number] [address] [place] [address], [place] [address] 14 Jul, 2013 [facility] [address] [id number] [address] [place] [address], [place] [address] Jul, [facility] [address] [id number] [address] [place] [address], [place] [address] Jul, [facility] [address] [id number] [address] [place] [address], [place] [address] Jul, [facility] [address] [id number] [address] [place] [address], [place] [address] 11 Jul, 2013 [facility] [address] [id number] [address] [place] [address], [place] [address] Jun, [facility] [address] [id number] [address] [place] [address], [place] [address] 31 Jun, 2013 [facility] [address] [id number] [address] [place] [address], [place] [address] 15 Jun, 2013 [facility] [address] [id number] [address] [place] [address], [place] [address] 15 Jun, 2013 [facility] [address] [id number] [address] [place] [address], [place] [address] 14 Jun, 2013 [facility] [address] [id number] [address] [place] [address], [place] [address] 14 Jun, 2013 [facility] [address] [id number] [address] [place] [address], [place] [address] 14 Jun, 2013 [facility] [address] [id number] [address] [place] [address], [place] [address] 14 Jun, 2013 [facility] [address] [id number] [address] [place] [address], [place] [address] 14 Jun, 2013 [facility] [address] [id number] [address] [place] [address], [place] [address] 14 Jun, 2013 [facility] [address] [id number] [address] [place] [address], [place] [address] 27 May, 2013 [facility] [address] [id number] [address] [place] [address], [place] [address] 27 May, 2013 [facility] [address] [id number] [address] [place] [address], [place] [address] 26 May, 2013 [facility] [address] [id number] [address] [place] [address], [place] [address] 19 May, 2013 [facility] [address] [id number] [address] [place] [address], [place] [address] 19 May, 2013 [facility] [address] [id number] [address] [place] [address], [place] [address] 16 May, 2013 [facility] [address] [id number] [address] [place] [address], [place] [address] 16 May, 2013 [facility] [address] [id number] [address] [place] [address], [place] [address] 16 May, 2013 [facility] [address] [id number] [address] [place] [address], [place] [address] 16 May, 2013 [facility] [address] [id number] [address] [place] [address], [place] [address] 13 May, 2013 [facility] [address] [id number] [address] [place] [address] May, [facility] [address] [id number] [address] [place] [address], [place] [address] May, [facility] [address] [id number] [address] [place] [address] Apr, [facility] [address] [id number] [address] [place] [address], [place] [address] Apr, [facility] [address] [id number] [address] [place] [id number] 18 Apr, 2013 [facility] [address] [id number] [address] [place] [address], [place] [address] Apr, [facility] [address] [id number] [address] [place] [address] Apr, [facility] [address] [id number] [address] [place] [address] Apr, [facility] [address] [id number] [address] [place] [address] 08 Apr, 2013 [facility] [address] [id number] [address] [place] [address] 07 Apr, 2013 [facility] [address] [id number] [address] [place] [id number] 07 Apr, 2013 [facility] [address] [id number] [address] [place] [address] Apr, [facility] [address] [id number] [address] [place] [address] Apr, [facility] [address] [id number] [address] [place] [address] Mar, [facility] [address] [id number] [address] [place] [address] Mar, [facility] [address] [id number] [address] [place] [address] Mar, [facility] [address] [id number] [address] [place] [address], [place] [address] Mar, [facility] [address] [id number] [address] [place] [address], [place] [address] Mar, [facility] [address] [id number] [address] [place] [address], [place] [address] Mar, [facility] [address] [id number] [address] [place] [address], [place] [address] Mar, [facility] [address] [id number] [address] [place] [address], [place] [address] Mar, [facility] [address] [id number] [address] [place] [address], [place] [address] 18 Mar, 2013 [facility] [address] [id number] [address] [place] [address], [place] [address] 15 Mar, 2013 [facility] [address] [id number] [address] [place] [address], [place] [address] 15 Mar, 2013 [facility] [address] [id number] [address] [place] [address], [place] [address] Mar, [facility] [address] [id number] [address] [place] [address], [place] [address] 30 Jan, 2013 [facility] [address] [id number] [address] [place] [address], [place] [address] 25 Jan, 2013 [facility] [address] [id number] [address] [place] [address], [place] [address] 20 Jan, 2013 [facility] [address] [id number] [address] [place] [address], [place] [address] Jan, [facility] [address] [id number] [address] [place] [address], [place] [address] Dec, [facility] [address] [id number] [address] [place] [address], [place] [address] Dec, [facility] [address] [id number] [address] [place] [address], [place] [address] Dec, [facility] [address] [id number] [address] [place] [address], [place] [address] Dec, [facility] [address] [id number] [address] [place] [address], [place] [address] Dec, [facility] [address] [id number] [address] [place] [address], [place] [address] Dec, [facility] [address] [id number] [address] [place] [address], [place] [address] Dec, [facility] [address] [id number] [address] [place] [address], [place] [address] Dec, [facility] [address] [id number] [address] [place] [address], [place] [address] Dec, [facility] [address] [id number] [address] [place] [address], [place] [address] Nov, [facility] [address] [id number] [address] [place] [address], [place] [address] Nov, [facility] [address] [id number] [address] [place] [address], [place] [address] Nov, [facility] [address] [id number] [address] [place] [address], [place] [address] Nov, [facility] [address] [id number] [address] [place] [address], [place] [address] Nov, [facility] [address] [id number] [address] [place] [address], [place] [address] Nov, [facility] [address] [id number] [address] [place] [address], [place] [address] Nov, [facility] [address] [id number] [address] [place] [address], [place] [address] Nov, [facility] [address] [id number] [address] [place] [address], [place] [address] Oct, [facility] [address] [id number] [address] [place] [address], [place] [address] 27 Oct, 2012 [facility] [address] [id number] [address] [place] [address], [place] [address] Oct, [facility] [address] [id number] [address] [place] [address], [place] [address] Oct, [facility] [address] [id number] [address] [place] [address], [place] [address] Oct, [facility] [address] [id number] [address] [place] [address], [place] [address] Oct, [facility] [address] [id number] [address] [place] [address], [place] [address] Oct, [facility] [address] [id number] [address] [place] [address], [place] [address] Oct, [facility] [address] [id number] [address] [place] [address], [place] [address] Oct, [facility] [address] [id number] [address] [place] [address], [place] [address] 18 Oct, 2012 [facility] [address] [id number] [address] [place] [address], [place] [address] 17 Oct, 2012 [facility] [address] [id number] [address] [place] [address], [place] [address] 14 Oct, 2012 [facility] [address] [id number] [address] [place] [address], [place] [id number] 07 Oct, 2012 [facility] [address] [id number] [address] [place] [address], [place] [address] September, [facility] [address] [id number] [address] [place] [address], [place] [address] September, [facility] [address] [id number] [address] [place] [address], [place] [address] September, [facility] [address] [id number] [address] [place] [address], [place] [address] Aug, [facility] [address] [id number] [address] [place] [address], [place] [address] Aug, [facility] [address] [id number] [address] [place] [address], [place] [address] Aug, [facility] [address] [id number] [address] [place] [address], [place] [address] Aug, [facility] [address] [id number] [address] [place] [address], [place] [address] Aug, [facility] [address] [id number] [address] [place] [address], [place] [address] Aug, [facility] [address] [id number] [address] [place] [address], [place] [address] Aug, [facility] [address] [id number] [address] [place] [address], [place] [address] Jul, [facility] [address] [id number] [address] [place] [address], [place] [address] Jul, [facility] [address] [id number] [address] [place] [address], [place] [address] Jul, [facility] [address] [id number] [address] [place] [address], [place] [address] Jul, [facility] [address] [id number] [address] [place] [address], [place] [address] Jul, [facility] [address] [id number] [address] [place] [address], [place] [address] Jul, [facility] [address] [id number] [address] [place] [address], [place] [address] Jul, [facility] [address] [id number] [address] [place] [address], [place] [address] Jul, [facility] [address] [id number] [address] [place] [address], [place] [address] Jul, [facility] [address] [id number] [address] [place] [address], [place] [address] Jul, [facility] [address] [id number] [address] [place] [address], [place] [address] Jul, [facility] [address] [id number] [address] [place] [address], [place] [address] Jul, [facility] [address] [id number] [address] [place] [address], [place] [address] Jul, [facility] [address] [id number] [address] [place] [address], [place] [address] 24 Jun, 2012 [facility] [address] [id number] [address] [place] [address], [place] [address] Jun, [facility] [address] [id number] [address] [place] [address], [place] [address] Jun, [facility] [address] [id number] [address] [place] [address], [place] [address] 17 Jun, 2012 [facility] [address] [id number] [address] [place] [address], [place] [address] 15 Jun, 2012 [facility] [address] [id number] [address] [place] [address], [place] [address] 14 Jun, 2012 [facility] [address] [id number] [address] [place] [address], [place] [address] Jun, [facility] [address] [id number] [address] [place] [address], [place] [address] May, [facility] [address] [id number] [address] [place] [address], [place] [address] May, [facility] [address] [id number] [address] [place] [address], [place] [address] May, [facility] [address] [id number] [address] [place] [address], [place] [address] May, [facility] [address] [id number] [address] [place] [address], [place] [address] May, [facility] [address] [id number] [address] [place] [address], [place] [address] May, [facility] [address] [id number] [address] [place] [address], [place] [address] May, [facility] [address] [id number] [address] [place] [address], [place] [address] May, [facility] [address] [id number] [address] [place] [address], [place] [address] May, [facility] [address] [id number] [address] [place] [address], [place] [address] May, [facility] [address] [address] [id number] [address] [place] [address], [place] [address] Apr, [facility] [address] [id number] [address] [place] [address], [place] [address] Apr, [facility] [address] [id number] [address] [place] [address], [place] [address] Apr, [facility] [address] [id number] [address] [place] [address], [place] [address] Apr, [facility] [address] [id number] [address] [place] [address], [place] [address] Apr, [facility] [address] [id number] [address] [place] [address], [place] [address] Apr, [facility] [address] [id number] [address] [place] [address], [place] [address] Apr, [facility] [address] [id number] [address] [place] [address], [place] [address] Apr, [facility] [address] [id number] [address] [place] [address], [place] [address] Apr, [facility] [address] [id number] [address] [place] [address], [place] [address] Apr, [facility] [address] [id number] [address] [place] [address], [place] [address] Apr, [facility] [address] [id number] [address] [place] [address], [place] [address] Apr, [facility] [address] [id number] [address] [place] [id number] Mar, [facility] [address] [id number] [address] [place] [address], [place] [address] Mar, [facility] [address] [id number] [address] [place] [id number] Mar, [facility] [address] [id number] [address] [place] [address], [place] [address] Mar, [facility] [address] [id number] [address] [place] [id number] Mar, [facility] [address] [id number] [address] [place] [phone] Mar, [facility] [address] [id number] [address] [place] [id number] Mar, [facility] [address] [id number] [address] [place] [id number] Mar, [facility] [address] [id number] [address] [place] [id number] Mar, [facility] [address] [id number] [address] [place] [phone] Mar, [facility] [address] [id number] [address] [place] [phone] Mar, [facility] [address] [id number] [address] [place] [id number] Mar, [facility] [address] [id number] [address] [place] [id number] Mar, [facility] [address] [id number] [address] [place] [id number] Mar, [facility] [address] [id number] [address] [place] [address], [place] [address] 03 Mar, 2012 [facility] [address] [id number] [address] [place] [address], [place] [address] 02 Mar, 2012 [facility] [address] [id number] [address] [place] [address], [place] [address] 25 Jan, 2011 [facility] [address] [id number] [address] [place] [address], [place] [address] 24 Jan, 2011 [facility] [address] [id number] [address] [place] [address], [place] [address] 22 Jan, 2011 [facility] [address] [id number] [address] [place] [address], [place] [address] 22 Jan, 2012 [facility] [address] [id number] [address] [place] [address], [place] [address] 21 Jan, 2012 [facility] [address] [id number] [address] [place] [address], [place] [address] 18 Jan, 2012 [facility] [address] [id number] [address] [place] [address], [place] [address] 14 Jan, 2012 [facility] [address] [id number] [address] [place] [address], [place] [id number] 07 Jan, 2012 [facility] [address] [id number] [address] [place] [address], [place] [id number] 15 Dec, 2011 [facility] [address] [id number] [address] [place] [address], [place] [address] Dec, [facility] [address] [id number] [address] [place] [address], [place] [address] Dec, [facility] [address] [id number] [address] [place] [address], [place] [address] 08 Dec, 2011 [facility] [address] [id number] [address] [place] [address], [place] [address] 06 Dec, 2011 [facility] [address] [id number] [address] [place] [address], [place] [address] Dec, [facility] [address] [id number] [address] [place] [address], [place] [address] Dec, [facility] [address] [id number] [address] [place] [address], [place] [address] Nov, [facility] [address] [id number] [address] [place] [address], [place] [address] Oct, [facility] [address] [id number] [address] [place] [address], [place] [address] Aug, [facility] [address] [id number] [address] [place] [address], [place] [address] Jul, [facility] [address] [id number] [address] [place] [address], [place] [address] Jul, [facility] [address] [id number] [address] [place] [address], [place] [address] 16 Jul, 2011 [facility] [address] [id number] [address] [place] [address], [place] [address] 14 Jul, 2011 [facility] [address] [id number] [address] [place] [address], [place] [address] Jul, [facility] [address] [id number] [address] [place] [address], [place] [address] Jul, [facility] [address] [id number] [address] [place] [address], [place] [address] Jul, [facility] [address] [id number] [address] [place] [address], [place] [address] 15 Jul, 2011 [facility] [address] [id number] [address] [place] [address], [place] [address] 13 Jul, 2011 [facility] [address] [id number] [address] [place] [address], [place] [address] 03 Jul, 2011 [facility] [address] [id number] [address] [place] [address], [place] [address] 02 Jul, 2011 [facility] [address] [id number] [address] [place] [address], [place] [address] Jun, [facility] [address] [id number] [address] [place] [address], [place] [address] Jun, [facility] [address] [id number] [address] [place] [address], [place] [address] Jun, [facility] [address] [id number] [address] [place] [address], [place] [address] Jun, [facility] [address] [id number] [address] [place] [address], [place] [address] Jun, [facility] [address] [id number] [address] [place] [address], [place] [address] Jun, [facility] [address] [id number] [address] [place] [address], [place] [address] Jun, [facility] [address] [id number] [address] [place] [address], [place] [address] May, [facility] [address] [id number] [address] [place] [address], [place] [address] May, [facility] [address] [id number] [address] [place] [address], [place] [address] May, [facility] [address] [id number] [address] [place] [address], [place] [address] 14 May, 2011 [facility] [address] [id number] [address] [place] [address], [place] [address] 14 May, 2011 [facility] [address] [id number] [address] [place] [address], [place] [address] May, [facility] [address] [id number] [address] [place] [address], [place] [address] May, [facility] [address] [id number] [address] [place] [address], [place] [address] May, [facility] [address] [id number] [address] [place] [address], [place] [address] 06 May, 2011 [facility] [address] [id number] [address] [place] [id number] May, [facility] [address] [id number] [address] [place] [id number] Apr, [facility] [address] [id number] [address] [place] [id number] Apr, [facility] [address] [id number] [address] [place] [id number] Apr, [facility] [address] [id number] [address] [place] [phone] Apr, [facility] [address] [id number] [address] [place] [id number] Mar, [facility] [address] [id number] [address] [place] [id number] Mar, [facility] [address] [id number] [address] [place] [id number] Mar, [facility] [address] [id number] [address] [place] [id number] Mar, IMMUNIZATIONS No Known Immunizations SOCIAL HISTORY Never Assessed REASON FOR VISIT PLAN OF CARE VITAL SIGNS Height 61 in 2013-04-08 Weight 173.15 lbs 2013-04-08 Temperature 98.7 degrees Fahrenheit 2013-04-08 Heart Rate 104 bpm 2013-04-08 Respiratory Rate 22 2013-04-08 Blood pressure systolic 130 mmHg 2013-04-08 Blood pressure diastolic 96 mmHg 2013-04-08 MEDICATIONS Unknown Medications RESULTS No Results PROCEDURES Procedure Date Ordered Result Body Site INJECT TRIGGER POINT, 1 OR 2 Apr 08, 2013 INSTRUCTIONS MEDICATIONS ADMINISTERED No Known Medications [...] History ER for seizures 03/24/16 Hospitalization History [facility] for kidney stones/hypertension 0 12/2017
--- OUTSIDE RECORDS SUMMARY | 2020-01-03 18:10 | XMS REPORT ---
Author Author Pattie MAST Organization [facility] Address [address] [place] [address] Care Team Providers Care Rubber Mixer Name Role Phone SABIHA MAST Unavailable PROBLEMS Type Condition ICD9-CM Code SFN01-BH Code Onset Dates Condition S tatus SNOMED Code Problem Major depressive disorder in partial remission F32 .4 Active [id number] Problem FRANCIS (generalized anxiety disorder) F41.1 Active 31802571 Problem Conversion disorder (or hysterical neurosis, conversion ty pe) F44.9 Active 07966810 Problem Thoracic disc herniation M51.24 Activ e 380017584 Problem Slow transit constipation K59.01 Acti ve 91916140 Problem Constipation, unspecified constipation type K59.00 Active 14978520 Problem Mild episode of recurrent major depressive disorder F33.0 Active 133279051 Problem High blood pressure I10 Active 33048810 Problem Paroxysmal tachycardia I47.9 Active 04063494 Problem Nonadherence to medication Z91.14 Act vivian 768250803 Problem Seizure disorder G40.909 Active 128 928393 Problem Restless leg syndrome G25.81 Active 02223093 Problem Other chronic pain G89.29 Active 8 9882279 Problem Mild intermittent asthma without complication J45. 20 Active 819342708 Problem Obesity (BMI 30.0-34.9) E66.9 Active [id number] ALLERGIES No Information ENCOUNTERS Encounter Location Date Diagnosis [facility] [address] [facility] [id number] [place] [address] Aug, [facility] [address] [facility] [id number] [address] [place] [address] [phone] Aug, Dental examination Z01.20 [facility] [address] [facility] [id number] [address] [place] [address] [phone] 15 Aug, 2019 Dental examination Z01.20 an d Caries K02.9 [facility] [address] [place] [id number] [address] [place] [phone] Aug, [facility] [address] [id number] [address] [place] [phone] Aug, [facility] [address] [facility] [id number] [address] [place] [id number] Aug, Other chronic pain G89.29 an d Back muscle spasm M62.830 [facility] [address] [id number] [address] [place] [phone] Aug, [facility] [address] [id number] [address] [place] [phone] Aug, Major depressive disorder in partial remission F32.4 ; FRANCIS (generalized anxiety disorder) F41.1 ; Restless leg syndrome G25.81 and Nonadherence to medication Z91.14 [facility] [address] [facility] [id number] [address] [place] [phone] Aug, [facility] [address] [id number] [address] [place] [id number] Jul, [facility] [address] [facility] [id number] [address] [place] [phone] Jul, [facility] [address] [id number] [address] [place] [id number] Jul, Major depressive disorder in partial remission F32.4 ; FRANCIS (generalized anxiety disorder) F41.1 ; Restless leg syndrome G25.81 and High blood pressure I10 [facility] [address] [id number] [address] [place] [phone] Jul, [facility] [address] [facility] [id number] [address] [place] [id number] Jul, [facility] [address] [id number] [address] [place] [id number] Jun, [facility] [address] [facility] [id number] [address] [place] [phone] May, [facility] [address] [facility] [id number] [address] [place] [id number] Apr, [facility] [address] [facility] [id number] [address] [place] [id number] Apr, [facility] [address] [facility] [id number] [address] [place] [phone] Mar, [facility] [address] [facility] [id number] [place] [phone] Mar, Major depressive disorder in partial remission F32.4 ; FRANCIS (generalized anxiety disorder) F41.1 and Restless leg syndrome G25.81 [facility] [address] [facility] [id number] [address] [place] [id number] Mar, Obesity (BMI 30.0-34.9) E66. 9 [facility] [address] [place] [id number] [address] [place] [id number] Jan, [facility] [address] [facility] [id number] [address] [place] [phone] Jan, Burn T30.0 [facility] [address] [facility] [id number] [address] [place] [phone] Dec, [facility] [address] [facility] [id number] [address] [place] [phone] Nov, [facility] [address] [place] [id number] [address] [place] [id number] Nov, [facility] [address] [facility] [id number] [address] [place] [address] [id number] Nov, Dental examination Z01.20 [facility] [address] [facility] [id number] [address] [place] [phone] September, [facility] [address] [facility] [id number] [address] [place] [address] [phone] September, Decay, teeth K02.9 and Denta l examination Z01.20 [facility] [address] [place] [id number] [address] [place] [address] [id number] September, Dental examination Z01.20 [facility] [address] [facility] [id number] [address] [place] [phone] September, FRANCIS (generalized anxiety dis order) F41.1 ; Major depressive disorder in partial remission F32.4 and Restless leg syndrome G25.81 [place] [id number] [facility] [id number] [address] [place] [phone] Aug, [facility] [address] [facility] [id number] [address] [place] [phone] Jul, [place] [address] [facility] [id number] [address] [place] [id number] Jul, Encounter to discuss test re sults Z71.2 [place] [address] [place] [id number] [address] [place] [phone] Jul, Pelvic pain R10.2 ; Screenin g for breast cancer Z12.31 and Obesity (BMI 30.0-34.9) E66.9 [facility] [address] [facility] [id number] [address] [place] [phone] Jul, Mild intermittent asthma wit hout complication J45.20 [facility] [address] [facility] [id number] [address] [place] [phone] Jul, Major depressive disorder in partial remission F32.4 and FRANCIS (generalized anxiety disorder) F41.1 [facility] [address] [facility] [id number] [address] [place] [phone] Jul, [facility] [address] [facility] [id number] [address] [place] [phone] Jun, [place] [address] [facility] [id number] [address] [place] [phone] May, Major depressive disorder in partial remission F32.4 ; FRANCIS (generalized anxiety disorder) F41.1 and Restless leg syndrome G25.81 [place] [address] [id number] [address] [place] [phone] Apr, [facility] [address] [id number] [address] [place] [phone] Mar, [facility] [address] [id number] [address] [place] [phone] 21 Jan, 2018 Pain in thoracic spine M54.6 and Other chronic pain G89.29 [facility] [address] [id number] [address] [place] [id number] 14 Jan, 2018 [facility] [address] [id number] [address] [place] [id number] 11 Jan, 2018 Mild episode of recurrent ma saray depressive disorder F33.0 ; FRANCIS (generalized anxiety disorder) F41.1 and Restless leg syndrome G25.81 [facility] [address] [id number] [address] [place] [phone] Dec, [facility] [address] [id number] [address] [place] [phone] Dec, Hospital discharge follow-up Z09 [facility] [address] [id number] [address] [place] [phone] Nov, [facility] [address] [id number] [address] [place] [id number] Nov, [facility] [address] [id number] [address] [place] [id number] September, [facility] [address] [id number] [address] [place] [phone] September, [facility] [address] [id number] [address] [place] [phone] September, Major depressive disorder in partial remission F32.4 ; FRANCIS (generalized anxiety disorder) F41.1 and Restless leg syndrome G25.81 [facility] [address] [id number] [address] [place] [phone] September, [facility] [address] [facility] [id number] [address] [place] [phone] Jul, [facility] [address] [facility] [id number] [address] [place] [phone] Jul, Dorsalgia, unspecified M54.9 [facility] [address] [facility] [id number] [address] [place] [id number] Jul, Mild episode of recurrent ma saray depressive disorder F33.0 and FRANCIS (generalized anxiety disorder) F41.1 [facility] [address] [facility] [id number] [address] [place] [phone] May, [facility] [address] [facility] [id number] [address] [place] [phone] May, Dysuria R30.0 and Acute cyst itis with hematuria N30.01 [facility] [address] [facility] [id number] [address] [place] [phone] Apr, [facility] [address] [facility] [id number] [address] [place] [id number] Apr, Major depressive disorder in partial remission F32.4 and FRANCIS (generalized anxiety disorder) F41.1 [place] [address] [facility] [id number] [address] [place] [phone] Mar, Paroxysmal tachycardia I47.9 [place] [address] [facility] [id number] [address] [place] [id number] Mar, Paroxysmal tachycardia I47.9 and Pain of left lower extremity M79.605 [facility] [address] [facility] [id number] [address] [place] [phone] Mar, FRANCIS (generalized anxiety dis order) F41.1 and Major depressive disorder in partial remission F32.4 [facility] [address] [facility] [id number] [address] [place] [phone] Jan, [facility] [address] [facility] [id number] [address] [place] [phone] [address], [address] [facility] [address] [facility] [id number] [address] [place] [phone] Jan, [facility] [address] [facility] [id number] [address] [place] [id number] Dec, Constipation, unspecified co nstipation type K59.00 [facility] [address] [facility] [id number] [address] [place] [phone] Dec, [facility] [address] [facility] [id number] [address] [place] [phone] Nov, [facility] [address] [facility] [id number] [address] [place] [id number] Nov, Major depressive disorder in partial remission F32.4 and FRANCIS (generalized anxiety disorder) F41.1 [facility] [address] [facility] [id number] [address] [place] [phone] Oct, Abdominal pain R10.9 and Slo w transit constipation K59.01 [facility] [address] [place] [id number] [address] [place] [phone] Aug, Major depressive disorder in partial remission F32.4 ; FRANCIS (generalized anxiety disorder) F41.1 ; Conversion disorder (or hysterical neurosis, conversion type) F44.9 ; Dorsalgia, unspecified M54.9 and Long-term use of high-risk medication Z79.899 [facility] [address] [facility] [id number] [address] [place] [phone] Aug, [facility] [address] [place] [id number] [address] [place] [id number] Jul, Paroxysmal tachycardia I47.9 [place] [address] [place] [id number] [address] [place] [phone] Jul, Paroxysmal tachycardia I47.9 [facility] [address] [facility] [id number] [address] [place] [phone] Jun, [facility] [address] [place] [id number] [place] [phone] Jun, Major depressive disorder in partial remission F32.4 ; FRANCIS (generalized anxiety disorder) F41.1 and Conversion disorder (or hysterical neurosis, conversion type) F44.9 [facility] [address] [id number] [address] [place] [phone] May, Pelvic pain R10.2 [facility] [address] [facility] [id number] [address] [place] [phone] Apr, Gastroenteritis K52.9 [facility] [address] [facility] [id number] [address] [place] [phone] Apr, Blood in urine R31.9 [address] Ac[address] te cystitis with hematuria N30.01 [place] [address] [facility] [id number] [address] [place] [phone] Apr, Major depressive disorder in partial remission F32.4 ; FRANCIS (generalized anxiety disorder) F41.1 and Conversion disorder (or hysterical neurosis, conversion type) F44.9 [facility] [address] [facility] [id number] [address] [place] [phone] Apr, [place] [address] [facility] [id number] [place] [phone] Apr, Abnormal mammogram R92.8 [place] [address] [facility] [id number] [address] [place] [phone] Mar, [place] [address] [facility] [id number] [address] [place] [id number] Mar, Gastroenteritis K52.9 and Se izure disorder G40.909 [facility] [address] [facility] [id number] [address] [place] [phone] Dec, [facility] [address] [facility] [id number] [address] [place] [phone] Dec, Other headache syndrome G44. 89 [place] [address] [facility] [id number] [address] [place] [phone] Dec, [facility] [address] [id number] [address] [place] [id number] Dec, Thoracic disc herniation M51 .24 [facility] [address] [id number] [address] [place] [address] Dec, [facility] [address] [id number] [address] [place] [id number] Nov, Major depressive disorder in partial remission F32.4 and FRANCIS (generalized anxiety disorder) F41.1 [facility] [address] [id number] [address] [place] [phone] Nov, [facility] [address] [id number] [address] [place] [phone] Nov, Dorsalgia, unspecified M54.9 [facility] [address] [id number] [address] [place] [phone] Oct, [facility] [address] [id number] [address] [place] [phone] September, [facility] [address] [id number] [address] [place] [id number] Aug, [facility] [address] [id number] [address] [place] [id number] Aug, Major depressive disorder in partial remission F32.4 and FRANCIS (generalized anxiety disorder) F41.1 [facility] [address] [id number] [address] [place] [id number] Aug, [facility] [address] [id number] [address] [place] [phone] 31 Jul, [address] [facility] [address] [id number] [address] [place] [id number] [address], [address] [facility] [address] [id number] [address] [place] [id number] [address], [address] [facility] [address] [id number] [address] [place] [id number] Jul, [facility] [address] [id number] [address] [place] [id number] Jul, [facility] [address] [id number] [address] [place] [id number] Jul, [facility] [address] [facility] [id number] [address] [place] [id number] Jul, [facility] [address] [id number] [address] [place] [phone] Jun, Major depressive disorder in partial remission F32.4 and FRANCIS (generalized anxiety disorder) F41.1 [facility] [address] [id number] [address] [place] [id number] Jun, [facility] [address] [facility] [id number] [address] [place] [phone] May, [facility] [address] [id number] [address] [place] [id number] Apr, [facility] [address] [id number] [address] [place] [id number] Mar, Major depressive disorder, r ecurrent episode, moderate F33.1 ; PTSD (post-traumatic stress disorder) F43.10 and FRANCIS (generalized anxiety disorder) F41.1 [facility] [address] [id number] [address] [place] [id number] Mar, [facility] [address] [id number] [address] [place] [phone] Mar, [facility] [address] [facility] [id number] [address] [place] [id number] Mar, [facility] [address] [id number] [address] [place] [id number] Mar, [facility] [address] [id number] [address] [place] [phone] Jan, [facility] [address] [id number] [address] [place] [id number] 15 Jan, 2015 [facility] [address] [id number] [address] [place] [id number] 15 Jan, 2015 [facility] [address] [id number] [address] [place] [id number] 14 Jan, 2015 Thoracic disc herniation 722 .11 [facility] [address] [id number] [address] [place] [id number] Dec, [facility] [address] [id number] [address] [place] [id number] Dec, [facility] [address] [id number] [address] [place] [id number] Dec, [facility] [address] [id number] [address] [place] [phone] Nov, [facility] [address] [id number] [address] [place] [id number] Nov, Generalized anxiety disorder 300.02 ; Posttraumatic stress disorder 309.81 and Major depressive disorder, recurrent episode, moderate 296.32 [facility] [address] [id number] [address] [place] [id number] Nov, [facility] [address] [id number] [address] [place] [id number] Nov, [facility] [address] [id number] [address] [place] [id number] Oct, [facility] [address] [id number] [address] [place] [id number] Oct, [facility] [address] [id number] [address] [place] [id number] Oct, [facility] [address] [id number] [address] [place] [id number] September, [facility] [address] [id number] [address] [place] [id number] September, [facility] [address] [id number] [address] [place] [address], [place] [address] 14 Aug, 2014 [facility] [address] [id number] [address] [place] [address], [place] [address] 13 Aug, 2014 [facility] [address] [id number] [address] [place] [address], [place] [address] 25 Jul, 2014 [facility] [address] [id number] [address] [place] [address], [place] [address] 25 Jul, 2014 [facility] [address] [id number] [address] [place] [address], [place] [address] 17 Jul, 2014 [facility] [address] [id number] [address] [place] [address], [place] [address] 17 Jul, 2014 [facility] [address] [id number] [address] [place] [address], [place] [address] 16 Jul, 2014 [facility] [address] [id number] [address] [place] [address], [place] [address] 16 Jul, 2014 [facility] [address] [id number] [address] [place] [address], [place] [address] Jul, [facility] [address] [id number] [address] [place] [address], [place] [address] 19 Jul, 2014 [facility] [address] [id number] [address] [place] [address], [place] [address] Jul, [facility] [address] [id number] [address] [place] [address], [place] [address] Jul, [facility] [address] [id number] [address] [place] [address], [place] [address] Jun, [facility] [address] [id number] [address] [place] [address], [place] [address] Jun, [facility] [address] [id number] [address] [place] [address], [place] [address] 05 Jun, 2014 [facility] [address] [id number] [address] [place] [id number] May, [facility] [address] [id number] [address] [place] [place] [address], [place] [address] Apr, [facility] [address] [id number] [address] [place] [address] Apr, [facility] [address] [id number] [address] [place] [address], [place] [address] Apr, [facility] [address] [id number] [address] [place] [address] Apr, [facility] [address] [id number] [address] [place] [address], [place] [address] Apr, [facility] [address] [id number] [address] [place] [address], [place] [address] Apr, [facility] [address] [id number] [address] [place] [address], [place] [address] Apr, [facility] [address] [id number] [address] [place] [address], [place] [address] Apr, [facility] [address] [id number] [address] [place] [address] Mar, [facility] [address] [id number] [address] [place] [address], [place] [address] Mar, [facility] [address] [id number] [address] [place] [address] Mar, [facility] [address] [id number] [address] [place] [address] Mar, [facility] [address] [id number] [address] [place] [address], [place] [address] Mar, [facility] [address] [id number] [address] [place] [address] Mar, [facility] [address] [id number] [address] [place] [address], [place] [address] Mar, [facility] [address] [id number] [address] [place] [address], [place] [address] 23 Mar, 2013 [facility] [address] [id number] [address] [place] [address], [place] [address] 23 Mar, 2013 [facility] [address] [id number] [address] [place] [address], [place] [address] Mar, 2013 [facility] [address] [id number] [address] [place] [address], [place] [address] 17 Mar, 2013 [facility] [address] [id number] [address] [place] [address], [place] [address] 14 Mar, 2013 [facility] [address] [id number] [address] [place] [address], [place] [address] 14 Mar, 2013 [facility] [address] [id number] [address] [place] [address], [place] [address] 07 Mar, 2013 [facility] [address] [id number] [address] [place] [address], [place] [address] 07 Mar, 2013 [facility] [address] [id number] [address] [place] [address], [place] [address] 06 Mar, 2013 [facility] [address] [id number] [address] [place] [address], [place] [address] 06 Mar, 2013 [facility] [address] [id number] [address] [place] [address], [place] [address] 19 Jan, 2013 [facility] [address] [id number] [address] [place] [address], [place] [address] 19 Sep, 2013 [facility] [address] [id number] [address] [place] [address], [place] [address] 09 Sep, 2013 [facility] [address] [id number] [address] [place] [address], [place] [address] 09 Sep, 2013 [facility] [address] [id number] [address] [place] [address], [place] [address] 05 Sep, 2013 [facility] [address] [id number] [address] [place] [address], [place] [address] 05 Sep, 2013 [facility] [address] [id number] [address] [place] [address], [place] [address] 05 Jan, 2013 [facility] [address] [id number] [address] [place] [address], [place] [address] Jan, 2013 [facility] [address] [id number] [address] [place] [address], [place] [address] Jan, 2013 [facility] [address] [id number] [address] [place] [address], [place] [address] Jan, 2013 [facility] [address] [id number] [address] [place] [address], [place] [address] Jan, 2013 [facility] [address] [id number] [address] [place] [address], [place] [address] Jan, 2013 [facility] [address] [id number] [address] [place] [address], [place] [address] Jan, 2013 [facility] [address] [id number] [address] [place] [address], [place] [address] Dec, [facility] [address] [id number] [address] [place] [address], [place] [address] Dec, [facility] [address] [id number] [address] [place] [address], [place] [address] Dec, [facility] [address] [id number] [address] [place] [address], [place] [address] Dec, [facility] [address] [id number] [address] [place] [address], [place] [address] Dec, [facility] [address] [id number] [address] [place] [address], [place] [address] Dec, [facility] [id number] Dec, [facility] [place] [id number] Dec, [facility] [address] [id number] [address] [place] [address], [place] [address] Dec, [facility] [address] [id number] [address] [place] [address], [place] [address] Dec, [facility] [address] [id number] [address] [place] [address], [place] [address] Dec, [facility] [address] [id number] [address] [place] [address], [place] [address] Dec, [facility] [address] [id number] [address] [place] [address], [place] [address] Nov, [facility] [address] [id number] [address] [place] [address], [place] [address] Nov, [facility] [address] [id number] [address] [place] [address], [place] [address] Nov, [facility] [address] [id number] [address] [place] [address], [place] [address] Nov, [facility] [address] [id number] [address] [place] [address], [place] [address] Nov, [facility] [address] [id number] [address] [place] [address], [place] [address] Nov, [facility] [address] [id number] [address] [place] [address], [place] [address] Nov, [facility] [address] [id number] [address] [place] [address], [place] [address] Nov, [facility] [address] [id number] [address] [place] [address], [place] [address] Nov, [facility] [address] [id number] [address] [place] [address], [place] [address] Nov, [facility] [address] [id number] [address] [place] [address], [place] [address] Nov, [facility] [address] [id number] [address] [place] [address], [place] [address] Nov, [facility] [address] [id number] [address] [place] [address], [place] [address] Nov, [facility] [address] [id number] [facility] [place] [address] Oct, [facility] [address] [id number] [address] [place] [address], [place] [address] Oct, [facility] [address] [id number] [address] [place] [address], [place] [address] Oct, [facility] [address] [id number] [address] [place] [address], [place] [address] Oct, [facility] [address] [id number] [address] [place] [address], [place] [address] Oct, [facility] [address] [id number] [address] [place] [address], [place] [address] Oct, [facility] [address] [id number] [address] [place] [address], [place] [address] Oct, [facility] [address] [id number] [address] [place] [address], [place] [address] Oct, [facility] [address] [id number] [address] [place] [address], [place] [address] Oct, [facility] [address] [id number] [address] [place] [address], [place] [address] Oct, [facility] [address] [id number] [address] [place] [address], [place] [address] Oct, [facility] [address] [id number] [address] [place] [address], [place] [address] Oct, [facility] [address] [id number] [address] [place] [address], [place] [address] September, [facility] [address] [id number] [address] [place] [address], [place] [address] September, [facility] [address] [id number] [address] [place] [address], [place] [address] September, [facility] [address] [id number] [facility] [place] [address] September, [facility] [address] [id number] [facility] [place] [address] Aug, [facility] [address] [id number] [facility] [place] [address] Aug, [facility] [address] [id number] [facility] [place] [address] Aug, [facility] [address] [id number] [facility] [place] [address] Aug, [facility] [address] [id number] [address] [place] [address], [place] [address] Aug, [facility] [address] [id number] [address] [place] [address], [place] [address] Aug, [facility] [address] [id number] [address] [place] [address], [place] [address] Aug, [facility] [address] [id number] [address] [place] [address], [place] [address] Jul, [facility] [address] [id number] [address] [place] [address], [place] [address] 28 Jul, 2013 [facility] [address] [id number] [address] [place] [address], [place] [address] Jul, [facility] [address] [id number] [address] [place] [address], [place] [address] 28 Jul, 2013 [facility] [address] [id number] [address] [place] [address], [place] [address] Jul, [facility] [address] [id number] [address] [place] [address], [place] [address] 19 Jul, 2013 [facility] [address] [id number] [address] [place] [address], [place] [address] 18 Jul, 2013 [facility] [address] [id number] [address] [place] [address], [place] [address] Jul, [facility] [address] [id number] [facility] [place] [address] 18 Jul, 2013 [facility] [address] [id number] [address] [place] [address], [place] [address] 18 Jul, 2013 [facility] [address] [id number] [address] [place] [address], [place] [address] 18 Jul, 2013 [facility] [address] [id number] [address] [place] [address], [place] [address] Jul, [facility] [address] [id number] [address] [place] [address], [place] [address] 14 Jul, 2013 [facility] [address] [id number] [address] [place] [address], [place] [address] 14 Jul, 2013 [facility] [address] [id number] [address] [place] [address], [place] [address] Jul, [facility] [address] [id number] [address] [place] [address], [place] [address] Jul, [facility] [address] [id number] [address] [place] [address], [place] [address] Jul, [facility] [address] [id number] [address] [place] [address], [place] [address] Jul, [facility] [address] [id number] [address] [place] [address], [place] [address] Jun, [facility] [address] [id number] [address] [place] [address], [place] [address] Jun, [facility] [address] [id number] [address] [place] [address], [place] [address] 15 Jun, 2013 [facility] [address] [id number] [address] [place] [address], [place] [address] 15 Jun, 2013 [facility] [address] [id number] [address] [place] [address], [place] [address] 14 Jun, 2013 [facility] [address] [id number] [address] [place] [address], [place] [address] 14 Jun, 2013 [facility] [address] [id number] [address] [place] [address], [place] [address] 14 Jun, 2013 [facility] [address] [id number] [address] [place] [address], [place] [address] 14 Jun, 2013 [facility] [address] [id number] [address] [place] [address], [place] [address] 14 Jun, 2013 [facility] [address] [id number] [address] [place] [address], [place] [address] 14 Jun, 2013 [facility] [address] [id number] [address] [place] [address], [place] [address] 27 May, 2013 [facility] [address] [id number] [address] [place] [address], [place] [address] 27 May, 2013 [facility] [address] [id number] [address] [place] [address], [place] [address] 26 May, 2013 [facility] [address] [id number] [address] [place] [address], [place] [address] 19 May, 2013 [facility] [address] [id number] [address] [place] [address], [place] [address] 19 May, 2013 [facility] [address] [id number] [address] [place] [address], [place] [address] 16 May, 2013 [facility] [address] [id number] [address] [place] [address], [place] [address] 16 May, 2013 [facility] [address] [id number] [address] [place] [address], [place] [address] 16 May, 2013 [facility] [address] [id number] [address] [place] [address], [place] [address] 16 May, 2013 [facility] [address] [id number] [address] [place] [address], [place] [address] 13 May, 2013 [facility] [address] [id number] [address] [place] [address], [place] [address] 13 May, 2013 [facility] [address] [id number] [address] [place] [address], [place] [address] 11 May, 2013 [facility] [address] [id number] [address] [place] [address], [place] [address] Apr, [facility] [address] [id number] [address] [place] [address], [place] [address] Apr, [facility] [address] [id number] [address] [place] [address], [place] [address] Apr, [facility] [address] [id number] [address] [place] [address], [place] [address] Apr, [facility] [address] [id number] [address] [place] [address], [place] [address] Apr, [facility] [address] [id number] [address] [place] [address], [place] [address] Apr, [facility] [address] [id number] [address] [place] [address] 08 Apr, 2013 [facility] [address] [id number] [address] [place] [address], [place] [address] Apr, [facility] [address] [id number] [address] [place] [address] Apr, [facility] [address] [id number] [address] [place] [address] Apr, [facility] [address] [id number] [address] [place] [address] Apr, [facility] [address] [id number] [address] [place] [address], [place] [address] Mar, [facility] [address] [id number] [address] [place] [address] Mar, [facility] [address] [id number] [address] [place] [address] Mar, [facility] [address] [id number] [address] [place] [address], [place] [address] Mar, [facility] [address] [id number] [address] [place] [address], [place] [address] Mar, [facility] [address] [id number] [address] [place] [address], [place] [address] Mar, [facility] [address] [id number] [address] [place] [address], [place] [address] Mar, [facility] [address] [id number] [address] [place] [address], [place] [address] Mar, [facility] [address] [id number] [address] [place] [address], [place] [address] 18 Mar, 2013 [facility] [address] [id number] [address] [place] [address], [place] [address] Mar, [facility] [address] [id number] [address] [place] [address], [place] [address] 15 Mar, 2013 [facility] [address] [id number] [address] [place] [address], [place] [address] Mar, [facility] [address] [id number] [address] [place] [address], [place] [address] 30 Jan, 2013 [facility] [address] [id number] [address] [place] [address], [place] [address] 25 Jan, 2013 [facility] [address] [id number] [address] [place] [address], [place] [address] 20 Jan, 2013 [facility] [address] [id number] [address] [place] [address], [place] [address] Jan, [facility] [address] [id number] [address] [place] [address], [place] [address] Dec, [facility] [address] [id number] [address] [place] [address], [place] [address] Dec, [facility] [address] [id number] [address] [place] [address], [place] [address] Dec, [facility] [address] [id number] [address] [place] [address], [place] [address] Dec, [facility] [address] [id number] [address] [place] [address], [place] [address] Dec, [facility] [address] [id number] [address] [place] [address], [place] [address] Dec, [facility] [address] [id number] [address] [place] [address], [place] [address] Dec, [facility] [address] [id number] [address] [place] [address], [place] [address] Dec, [facility] [address] [id number] [address] [place] [address], [place] [address] Dec, [facility] [address] [id number] [address] [place] [address], [place] [address] Nov, [facility] [address] [id number] [address] [place] [address], [place] [address] Nov, [facility] [address] [id number] [address] [place] [address], [place] [address] Nov, [facility] [address] [id number] [address] [place] [address], [place] [address] Nov, [facility] [address] [id number] [address] [place] [address], [place] [address] Nov, [facility] [address] [id number] [address] [place] [address], [place] [address] Nov, [facility] [address] [id number] [address] [place] [address], [place] [address] Nov, [facility] [address] [id number] [address] [place] [address], [place] [address] Nov, [facility] [address] [id number] [address] [place] [address], [place] [address] Oct, [facility] [address] [id number] [address] [place] [address], [place] [address] 27 Oct, 2012 [facility] [address] [id number] [address] [place] [address], [place] [address] Oct, [facility] [address] [id number] [address] [place] [address], [place] [address] Oct, [facility] [address] [id number] [address] [place] [address], [place] [address] Oct, [facility] [address] [id number] [address] [place] [address], [place] [address] Oct, [facility] [address] [id number] [address] [place] [address], [place] [address] Oct, [facility] [address] [id number] [address] [place] [address], [place] [address] Oct, [facility] [address] [id number] [address] [place] [address], [place] [address] Oct, [facility] [address] [id number] [address] [place] [address], [place] [address] 18 Oct, 2012 [facility] [address] [id number] [address] [place] [address], [place] [address] 17 Oct, 2012 [facility] [address] [id number] [address] [place] [address], [place] [address] 14 Oct, 2012 [facility] [address] [id number] [address] [place] [address], [place] [address] 07 Oct, 2012 [facility] [address] [id number] [address] [place] [address], [place] [address] September, [facility] [address] [id number] [address] [place] [address], [place] [address] September, [facility] [address] [id number] [address] [place] [address], [place] [address] September, [facility] [address] [id number] [address] [place] [address], [place] [address] Aug, [facility] [address] [id number] [address] [place] [address], [place] [address] 24 Aug, 2012 [facility] [address] [id number] [address] [place] [address], [place] [address] Aug, [facility] [address] [id number] [address] [place] [address], [place] [address] 18 Aug, 2012 [facility] [address] [id number] [address] [place] [address], [place] [address] Aug, [facility] [address] [id number] [address] [place] [address], [place] [address] 08 Aug, 2012 [facility] [address] [id number] [address] [place] [address], [place] [address] 05 Aug, 2012 [facility] [address] [id number] [address] [place] [address], [place] [address] Jul, [facility] [address] [id number] [address] [place] [address], [place] [address] Jul, [facility] [address] [id number] [address] [place] [address], [place] [address] Jul, [facility] [address] [id number] [address] [place] [address], [place] [address] Jul, [facility] [address] [id number] [address] [place] [address], [place] [address] Jul, [facility] [address] [id number] [address] [place] [address], [place] [address] Jul, [facility] [address] [id number] [address] [place] [address], [place] [address] Jul, [facility] [address] [id number] [address] [place] [address], [place] [address] Jul, [facility] [address] [id number] [address] [place] [address], [place] [address] Jul, [facility] [address] [id number] [address] [place] [address], [place] [address] Jul, [facility] [address] [id number] [address] [place] [address], [place] [address] Jul, [facility] [address] [id number] [address] [place] [address], [place] [address] Jul, [facility] [address] [id number] [address] [place] [address], [place] [address] Jul, [facility] [address] [id number] [address] [place] [address], [place] [address] Jun, [facility] [address] [id number] [address] [place] [address], [place] [address] Jun, [facility] [address] [id number] [address] [place] [address], [place] [address] Jun, [facility] [address] [id number] [address] [place] [address], [place] [address] Jun, [facility] [address] [id number] [address] [place] [address], [place] [address] 15 Jun, 2012 [facility] [address] [id number] [address] [place] [address], [place] [address] 14 Jun, 2012 [facility] [address] [id number] [address] [place] [address], [place] [address] Jun, [facility] [address] [id number] [address] [place] [address], [place] [address] May, [facility] [address] [id number] [address] [place] [address], [place] [address] May, [facility] [address] [id number] [address] [place] [address], [place] [address] May, [facility] [address] [id number] [address] [place] [address], [place] [address] May, [facility] [address] [id number] [address] [place] [address], [place] [address] May, [facility] [address] [id number] [address] [place] [address], [place] [address] May, [facility] [address] [id number] [address] [place] [address], [place] [address] May, [facility] [address] [id number] [address] [place] [address], [place] [address] May, [facility] [address] [id number] [address] [place] [address], [place] [address] May, [facility] [address] [id number] [address] [place] [address], [place] [address] May, [facility] [address] [id number] [address] [place] [address], [place] [address] Apr, [facility] [address] [id number] [address] [place] [address], [place] [address] Apr, [facility] [address] [id number] [address] [place] [address], [place] [address] Apr, [facility] [address] [id number] [address] [place] [address], [place] [address] Apr, [facility] [address] [id number] [address] [place] [address], [place] [address] Apr, [facility] [address] [id number] [address] [place] [address], [place] [address] Apr, [facility] [address] [id number] [address] [place] [address], [place] [address] Apr, [facility] [address] [id number] [address] [place] [address], [place] [address] Apr, [facility] [address] [id number] [address] [place] [address], [place] [address] Apr, [facility] [address] [id number] [address] [place] [address], [place] [address] Apr, [facility] [address] [id number] [address] [place] [address], [place] [address] Apr, [facility] [address] [id number] [address] [place] [address] Apr, [facility] [address] [id number] [address] [place] [address], [place] [address] Mar, [facility] [address] [id number] [address] [place] [address] Mar, [facility] [address] [id number] [address] [place] [address] Mar, [facility] [address] [id number] [address] [place] [address], [place] [address] Mar, [facility] [address] [id number] [address] [place] [address], [place] [address] Mar, [facility] [address] [id number] [address] [place] [address] Mar, [facility] [address] [id number] [address] [place] [address] Mar, [facility] [address] [id number] [address] [place] [address] Mar, [facility] [address] [id number] [address] [place] [address] Mar, [facility] [address] [id number] [address] [place] [address] Mar, [facility] [address] [id number] [address] [place] [address] Mar, [facility] [address] [id number] [address] [place] [address] Mar, [facility] [address] [id number] [address] [place] [address] Mar, [facility] [address] [id number] [address] [place] [address] Mar, [facility] [address] [id number] [address] [place] [address] Mar, [facility] [address] [id number] [address] [place] [address], [place] [address] Mar, [facility] [address] [id number] [address] [place] [address], [place] [address] 25 Jan, 2012 [facility] [address] [id number] [address] [place] [address], [place] [address] 24 Jan, 2012 [facility] [address] [id number] [address] [place] [address], [place] [address] 22 Jan, 2012 [facility] [address] [id number] [address] [place] [address], [place] [address] 22 Jan, 2012 [facility] [address] [id number] [address] [place] [address], [place] [address] 21 Jan, 2012 [facility] [address] [id number] [address] [place] [address], [place] [address] 18 Jan, 2012 [facility] [address] [id number] [address] [place] [address], [place] [address] 14 Jan, 2012 [facility] [address] [id number] [address] [place] [address], [place] [address] 07 Jan, 2012 [facility] [address] [id number] [address] [place] [address], [place] [address] 15 Dec, 2011 [facility] [address] [id number] [address] [place] [address], [place] [address] Dec, [facility] [address] [id number] [address] [place] [address], [place] [address] Dec, [facility] [address] [id number] [address] [place] [address], [place] [address] 08 Dec, 2011 [facility] [address] [id number] [address] [place] [address], [place] [address] 06 Dec, 2011 [facility] [address] [id number] [address] [place] [address], [place] [address] Dec, [facility] [address] [id number] [address] [place] [address], [place] [address] Dec, [facility] [address] [id number] [address] [place] [address], [place] [address] Nov, [facility] [address] [id number] [address] [place] [address], [place] [address] Oct, [facility] [address] [id number] [address] [place] [address], [place] [address] 05 Aug, 2011 [facility] [address] [id number] [address] [place] [address], [place] [address] 22 Jul, 2011 [facility] [address] [id number] [address] [place] [address], [place] [address] 19 Jul, 2011 [facility] [address] [id number] [address] [place] [address], [place] [address] 16 Jul, 2011 [facility] [address] [id number] [address] [place] [address], [place] [address] 14 Jul, 2011 [facility] [address] [id number] [address] [place] [address], [place] [address] 07 Jul, 2011 [facility] [address] [id number] [address] [place] [address], [place] [address] 02 Jul, 2011 [facility] [address] [id number] [address] [place] [address], [place] [address] 21 Jul, 2011 [facility] [address] [id number] [address] [place] [address], [place] [address] 15 Jul, 2011 [facility] [address] [id number] [address] [place] [address], [place] [address] 13 Jul, 2011 [facility] [address] [id number] [address] [place] [address], [place] [address] 03 Jul, 2011 [facility] [address] [id number] [address] [place] [address], [place] [address] 02 Jul, 2011 [facility] [address] [id number] [address] [place] [address], [place] [address] Jun, [facility] [address] [id number] [address] [place] [address], [place] [address] Jun, [facility] [address] [id number] [address] [place] [address], [place] [address] Jun, [facility] [address] [id number] [address] [place] [address], [place] [address] Jun, [facility] [address] [id number] [address] [place] [address], [place] [address] Jun, [facility] [address] [id number] [address] [place] [address], [place] [address] Jun, [facility] [address] [id number] [address] [place] [address], [place] [address] Jun, [facility] [address] [id number] [address] [place] [address], [place] [address] May, [facility] [address] [id number] [address] [place] [address], [place] [address] May, [facility] [address] [id number] [address] [place] [address], [place] [address] May, [facility] [address] [id number] [address] [place] [address], [place] [address] 14 May, 2011 [facility] [address] [id number] [address] [place] [address], [place] [address] May, [facility] [address] [id number] [address] [place] [address], [place] [address] May, [facility] [address] [id number] [address] [place] [address], [place] [address] May, [facility] [address] [id number] [address] [place] [address], [place] [address] May, [facility] [address] [id number] [address] [place] [address], [place] [address] May, [facility] [address] [id number] [address] [place] [address] May, [facility] [address] [id number] [address] [place] [address] Apr, [facility] [address] [id number] [address] [place] [address] Apr, [facility] [address] [id number] [address] [place] [address] Apr, [facility] [address] [id number] [address] [place] [address] Apr, [facility] [address] [id number] [address] [place] [address] Mar, [facility] [address] [id number] [address] [place] [address] Mar, [facility] [address] [id number] [address] [place] [address] Mar, [facility] [address] [id number] [address] [place] [address] Mar, IMMUNIZATIONS No Known Immunizations SOCIAL HISTORY [...]
--- OUTSIDE RECORDS SUMMARY | 2020-01-03 18:11 | XMS REPORT ---
Author Author Pattie JUNIOR Organization [facility] Address [address] [place] [address] Care Team Providers Care Supervisor Remelt Name Role Phone ITZ JUNIOR Unavailable PROBLEMS Type Condition ICD9-CM Code [id number] Code Onset Dates Condition S tatus SNOMED Code Problem Major depressive disorder in partial remission F32 .4 Active 91724049 Problem FRANCIS (generalized anxiety disorder) F41.1 Active 04040005 Problem Conversion disorder (or hysterical neurosis, conversion ty pe) F44.9 Active 63583546 Problem Thoracic disc herniation M51.24 Activ e 521271733 Problem Slow transit constipation K59.01 Acti ve 85718697 Problem Constipation, unspecified constipation type K59.00 Active 79817088 Problem Mild episode of recurrent major depressive disorder F33.0 Active 043910710 Problem High blood pressure I10 Active 56003314 Problem Paroxysmal tachycardia I47.9 Active 27670872 Problem Nonadherence to medication Z91.14 Act vivian 881855751 Problem Seizure disorder G40.909 Active 128 205171 Problem Restless leg syndrome G25.81 Active 00191582 Problem Other chronic pain G89.29 Active 8 2227822 Problem Mild intermittent asthma without complication J45. 20 Active 909764343 Problem Obesity (BMI 30.0-34.9) E66.9 Active [id number] ALLERGIES No Information ENCOUNTERS Encounter Location Date Diagnosis [facility] [address] [facility] [id number] [address] [place] [address] [id number] 15 Aug, 2019 Dental examination Z01.20 an d Caries K02.9 [facility] [address] [facility] [id number] [address] [place] [phone] Aug, [facility] [address] [facility] [id number] [address] [place] [phone] Aug, [facility] [address] [id number] [address] [place] [id number] 11 Aug, 2019 Other chronic pain G89.29 an d Back muscle spasm M62.830 [facility] [address] [id number] [address] [place] [phone] 07 Aug, 2019 [facility] [address] [id number] [address] [place] [id number] Aug, Major depressive disorder in partial remission F32.4 ; FRANCIS (generalized anxiety disorder) F41.1 ; Restless leg syndrome G25.81 and Nonadherence to medication Z91.14 [facility] [address] [id number] [address] [place] [phone] Aug, [facility] [address] [id number] [address] [place] [phone] Jul, [facility] [address] [id number] [address] [place] [phone] Jul, [facility] [address] [id number] [address] [place] [phone] Jul, Major depressive disorder in partial remission F32.4 ; FRANCIS (generalized anxiety disorder) F41.1 ; Restless leg syndrome G25.81 and High blood pressure I10 [facility] [address] [id number] [address] [place] [phone] Jul, [facility] [address] [id number] [address] [place] [phone] Jul, [facility] [address] [id number] [address] [place] [phone] Jun, [facility] [address] [id number] [address] [place] [phone] May, [facility] [address] [id number] [address] [place] [id number] Apr, [facility] [address] [id number] [address] [place] [phone] Apr, [facility] [address] [id number] [address] [place] [phone] Mar, [facility] [address] [id number] [address] [place] [phone] Mar, Major depressive disorder in partial remission F32.4 ; FRANCIS (generalized anxiety disorder) F41.1 and Restless leg syndrome G25.81 [facility] [address] [id number] [address] [place] [phone] Mar, Obesity (BMI 30.0-34.9) E66. 9 [facility] [address] [id number] [address] [place] [phone] Jan, [facility] [address] [facility] [id number] [address] [place] [phone] Jan, Burn T30.0 [facility] [address] [id number] [address] [place] [phone] Dec, [facility] [address] [id number] [address] [place] [phone] Nov, [facility] [address] [id number] [address] [place] [phone] Nov, [facility] [address] [id number] [address] [place] [address] [id number] Nov, Dental examination Z01.20 [facility] [address] [id number] [address] [place] [phone] September, [facility] [address] [id number] [address] [place] [address] [id number] September, Decay, teeth K02.9 and Denta l examination Z01.20 [facility] [address] [id number] [address] [place] [address] [id number] September, Dental examination Z01.20 [facility] [address] [id number] [address] [place] [id number] September, FRANCIS (generalized anxiety dis order) F41.1 ; Major depressive disorder in partial remission F32.4 and Restless leg syndrome G25.81 [facility] [address] [facility] [id number] [address] [place] [phone] Aug, [facility] [address] [facility] [id number] [address] [place] [id number] Jul, [facility] [address] [place] [id number] [address] [place] [id number] Jul, Encounter to discuss test re sults Z71.2 [place] [address] [facility] [id number] [address] [place] [phone] Jul, Pelvic pain R10.2 ; Screenin g for breast cancer Z12.31 and Obesity (BMI 30.0-34.9) E66.9 [place] [address] [place] [id number] [address] [place] [id number] Jul, Mild intermittent asthma wit hout complication J45.20 [facility] [address] [place] [id number] [address] [place] [phone] Jul, Major depressive disorder in partial remission F32.4 and FRANCIS (generalized anxiety disorder) F41.1 [place] [address] [place] [id number] [address] [place] [phone] Jul, [facility] [address] [place] [id number] [address] [place] [id number] Jun, [facility] [address] [place] [id number] [address] [place] [phone] May, Major depressive disorder in partial remission F32.4 ; FRANCIS (generalized anxiety disorder) F41.1 and Restless leg syndrome G25.81 [facility] [address] [facility] [id number] [address] [place] [phone] Apr, [facility] [address] [facility] [id number] [address] [place] [phone] Mar, [facility] [address] [id number] [address] [place] [id number] 21 Jan, 2018 Pain in thoracic spine M54.6 and Other chronic pain G89.29 [facility] [address] [id number] [address] [place] [id number] 14 Jan, 2018 [facility] [address] [id number] [address] [place] [id number] 11 Jan, 2018 Mild episode of recurrent ma saray depressive disorder F33.0 ; FRANCIS (generalized anxiety disorder) F41.1 and Restless leg syndrome G25.81 [facility] [address] [id number] [address] [place] [phone] Dec, [facility] [address] [id number] [address] [place] [id number] Dec, Hospital discharge follow-up Z09 [facility] [address] [id number] [address] [place] [phone] Nov, [facility] [address] [id number] [address] [place] [phone] Nov, [facility] [address] [id number] [address] [place] [phone] September, [facility] [address] [id number] [address] [place] [phone] September, [facility] [address] [id number] [address] [place] [phone] September, Major depressive disorder in partial remission F32.4 ; FRANCIS (generalized anxiety disorder) F41.1 and Restless leg syndrome G25.81 [facility] [address] [id number] [address] [place] [phone] September, [facility] [address] [id number] [address] [place] [phone] Jul, [facility] [address] [id number] [address] [place] [id number] Jul, Dorsalgia, unspecified M54.9 [facility] [address] [id number] [address] [place] [id number] Jul, Mild episode of recurrent ma saray depressive disorder F33.0 and FRANCIS (generalized anxiety disorder) F41.1 [facility] [address] [id number] [address] [place] [phone] May, [facility] [address] [id number] [address] [place] [phone] May, Dysuria R30.0 and Acute cyst itis with hematuria N30.01 [facility] [address] [id number] [address] [place] [phone] Apr, [place] [address] [facility] [id number] [address] [place] [phone] Apr, Major depressive disorder in partial remission F32.4 and FRANCIS (generalized anxiety disorder) F41.1 [place] [address] [id number] [address] [place] [phone] Mar, Paroxysmal tachycardia I47.9 [facility] [address] [id number] [address] [place] [id number] Mar, Paroxysmal tachycardia I47.9 and Pain of left lower extremity M79.605 [place] [address] [id number] [address] [place] [phone] Mar, FRANCIS (generalized anxiety dis order) F41.1 and Major depressive disorder in partial remission F32.4 [facility] [address] [id number] [address] [place] [phone] Jan, [facility] [address] [id number] [address] [place] [phone] Jan, [place] [address] [facility] [id number] [address] [place] [phone] Jan, [facility] [address] [id number] [address] [place] [phone] Dec, Constipation, unspecified co nstipation type K59.00 [facility] [address] [id number] [address] [place] [phone] Dec, [facility] [address] [facility] [id number] [address] [place] [phone] Nov, [facility] [address] [facility] [id number] [address] [place] [phone] Nov, Major depressive disorder in partial remission F32.4 and FRANCIS (generalized anxiety disorder) F41.1 [facility] [address] [id number] [address] [place] [phone] Oct, Abdominal pain R10.9 and Slo w transit constipation K59.01 [place] [address] [facility] [id number] [address] [place] [phone] Aug, Major depressive disorder in partial remission F32.4 ; FRANCIS (generalized anxiety disorder) F41.1 ; Conversion disorder (or hysterical neurosis, conversion type) F44.9 ; Dorsalgia, unspecified M54.9 and Long-term use of high-risk medication Z79.899 [place] [address] [facility] [id number] [address] [place] [id number] Aug, [place] [address] [facility] [id number] [address] [place] [phone] Jul, Paroxysmal tachycardia I47.9 [place] [address] [facility] [id number] [address] [place] [phone] Jul, Paroxysmal tachycardia I47.9 [facility] [address] [facility] [id number] [address] [place] [phone] Jun, [place] [address] [facility] [id number] [address] [place] [id number] Jun, Major depressive disorder in partial remission F32.4 ; FRANCIS (generalized anxiety disorder) F41.1 and Conversion disorder (or hysterical neurosis, conversion type) F44.9 [facility] [address] [facility] [id number] [address] [place] [phone] May, Pelvic pain R10.2 [facility] [address] [facility] [id number] [address] [place] [phone] Apr, Gastroenteritis K52.9 [facility] [address] [facility] [id number] [address] [place] [id number] Apr, Blood in urine R31.9 and Acu te cystitis with hematuria N30.01 [facility] [address] [facility] [id number] [address] [place] [phone] Apr, Major depressive disorder in partial remission F32.4 ; FRANCIS (generalized anxiety disorder) F41.1 and Conversion disorder (or hysterical neurosis, conversion type) F44.9 [facility] [address] [facility] [id number] [address] [place] [phone] Apr, [facility] [address] [place] [id number] [place] [phone] Apr, Abnormal mammogram R92.8 [facility] [address] [facility] [id number] [address] [place] [phone] Mar, [facility] [address] [facility] [id number] [place] [address] Mar, Gastroenteritis K52.9 and Se izure disorder G40.909 [facility] [address] [place] [id number] [address] [place] [id number] Dec, [facility] [address] [facility] [id number] [address] [place] [phone] Dec, Other headache syndrome G44. 89 [facility] [address] [facility] [id number] [address] [place] [phone] Dec, [facility] [address] [place] [id number] [address] [place] [phone] Dec, Thoracic disc herniation M51 .24 [facility] [address] [place] [id number] [address] [place] [phone] Dec, [place] [address] [id number] [address] [place] [id number] Nov, Major depressive disorder in partial remission F32.4 and FRANCIS (generalized anxiety disorder) F41.1 [facility] [address] [id number] [address] [place] [phone] Nov, [facility] [address] [id number] [address] [place] [id number] Nov, Dorsalgia, unspecified M54.9 [facility] [address] [id number] [address] [place] [phone] Oct, [facility] [address] [id number] [address] [place] [id number] September, [facility] [address] [id number] [address] [place] [phone] Aug, [facility] [address] [id number] [address] [place] [phone] Aug, Major depressive disorder in partial remission F32.4 and FRANCIS (generalized anxiety disorder) F41.1 [facility] [address] [id number] [address] [place] [id number] Aug, [facility] [address] [id number] [address] [place] [phone] Jul, Abnormal mammogram R92.8 [facility] [address] [id number] [address] [place] [phone] Jul, [facility] [address] [id number] [address] [place] [phone] Jul, [facility] [address] [id number] [address] [place] [phone] 14 Jul, 2015 [facility] [address] [id number] [address] [place] [id number] Jul, [facility] [address] [id number] [address] [place] [phone] Jul, [facility] [address] [id number] [address] [place] [id number] Jul, [facility] [address] [id number] [address] [place] [phone] Jun, Major depressive disorder in partial remission F32.4 and FRANCIS (generalized anxiety disorder) F41.1 [facility] [address] [id number] [address] [place] [phone] Jun, [facility] [address] [id number] [address] [place] [id number] May, [facility] [address] [id number] [address] [place] [phone] Apr, [facility] [address] [facility] [id number] [address] [place] [phone] Mar, Major depressive disorder, r ecurrent episode, moderate F33.1 ; PTSD (post-traumatic stress disorder) F43.10 and FRANCIS (generalized anxiety disorder) F41.1 [facility] [address] [id number] [address] [place] [phone] Mar, [facility] [address] [id number] [address] [place] [phone] Mar, [facility] [address] [facility] [id number] [address] [place] [phone] Mar, [facility] [address] [id number] [address] [place] [phone] Mar, [facility] [address] [id number] [address] [place] [phone] Jan, [facility] [address] [id number] [address] [place] [phone] Jan, [facility] [address] [id number] [address] [place] [phone] Jan, [facility] [address] [id number] [address] [place] [phone] Jan, Thoracic disc herniation 722 .11 [facility] [address] [id number] [address] [place] [phone] Dec, [facility] [address] [id number] [address] [place] [phone] Dec, [facility] [address] [id number] [address] [place] [phone] Dec, [facility] [address] [id number] [address] [place] [phone] Nov, [facility] [address] [id number] [address] [place] [id number] Nov, Generalized anxiety disorder 300.02 ; Posttraumatic stress disorder 309.81 and Major depressive disorder, recurrent episode, moderate 296.32 [facility] [address] [id number] [address] [place] [phone] Nov, [facility] [address] [id number] [address] [place] [phone] Nov, [facility] [address] [id number] [address] [place] [phone] Oct, [facility] [address] [id number] [address] [place] [phone] Oct, [facility] [address] [id number] [address] [place] [phone] Oct, [facility] [address] [id number] [address] [place] [phone] September, [facility] [address] [id number] [address] [place] [phone] September, [facility] [address] [id number] [address] [place] [phone] Aug, [facility] [address] [id number] [address] [place] [phone] Aug, [facility] [address] [id number] [address] [place] [address], [place] [phone] 25 Jul, 2014 [facility] [address] [id number] [address] [place] [address], [place] [address] Jul, [facility] [address] [id number] [address] [place] [address], [place] [address] 17 Jul, 2014 [facility] [address] [id number] [address] [place] [address], [place] [address] 17 Jul, 2014 [facility] [address] [id number] [address] [place] [address], [place] [address] 16 Jul, 2014 [facility] [address] [id number] [address] [place] [address], [place] [address] 16 Jul, 2014 [facility] [address] [id number] [address] [place] [address], [place] [address] 19 Jul, 2014 [facility] [address] [id number] [address] [place] [address], [place] [address] 19 Jul, 2014 [facility] [address] [id number] [address] [place] [address], [place] [address] Jul, [facility] [address] [id number] [address] [place] [address], [place] [address] Jul, [facility] [address] [id number] [address] [place] [address], [place] [address] Jun, [facility] [address] [id number] [address] [place] [address], [place] [address] Jun, [facility] [address] [id number] [address] [place] [address], [place] [address] Jun, [facility] [address] [id number] [address] [place] [address], [place] [address] May, [facility] [address] [id number] [address] [place] [address], [place] [address] Apr, [facility] [address] [id number] [address] [place] [address] [address] Apr, [facility] [address] [id number] [address] [place] [address], [place] [address] Apr, [facility] [address] [id number] [address] [place] [address], [place] [address] Apr, [facility] [address] [id number] [address] [place] [address], [place] [address] Apr, [facility] [address] [id number] [address] [place] [address], [place] [address] Apr, [facility] [address] [id number] [address] [place] [address], [place] [address] Apr, [facility] [address] [id number] [address] [place] [address], [place] [address] Apr, [facility] [address] [id number] [address] [place] [address], [place] [address] Mar, [facility] [address] [id number] [address] [place] [address], [place] [address] Mar, [facility] [address] [id number] [address] [place] [address], [place] [address] Mar, [facility] [address] [id number] [address] [place] [address], [place] [address] Mar, [facility] [address] [id number] [address] [place] [address] Mar, [facility] [address] [id number] [address] [place] [address] Mar, [facility] [address] [id number] [address] [place] [address], [place] [address] Mar, [facility] [address] [id number] [address] [place] [address], [place] [address] Mar, [facility] [address] [id number] [address] [place] [address], [place] [address] Mar, [facility] [address] [id number] [address] [place] [address], [place] [address] 2013 [facility] [address] [id number] [address] [place] [address] [place] [address] 17 Mar, 2013 [facility] [address] [id number] [address] [place] [address], [place] [address] 14 Mar, 2013 [facility] [address] [id number] [address] [place] [address], [place] [address] 14 Mar, 2013 [facility] [address] [id number] [address] [place] [address], [place] [address] 07 Mar, 2013 [facility] [address] [id number] [address] [place] [address], [place] [address] 07 Mar, 2013 [facility] [address] [id number] [address] [place] [address], [place] [address] 06 Mar, 2013 [facility] [address] [id number] [address] [place] [address], [place] [address] 06 Mar, 2013 [facility] [address] [id number] [address] [place] [address], [place] [address] 19 Sep, 2013 [facility] [address] [id number] [address] [place] [address], [place] [address] 19 Sep, 2013 [facility] [address] [id number] [address] [place] [address], [place] [address] 09 Sep, 2013 [facility] [address] [id number] [address] [place] [address], [place] [address] 09 Sep, 2013 [facility] [address] [id number] [address] [place] [address] 05 Sep, 2013 [facility] [address] [id number] [address] [place] [address], [place] [address] 05 Sep, 2013 [facility] [address] [id number] [address] [place] [address], [place] [address] 05 Sep, 2013 [facility] [address] [id number] [address] [place] [address], [place] [address] 05 Sep, 2013 [facility] [address] [id number] [address] [place] [address], [place] [address] Jan, 2013 [facility] [address] [id number] [address] [place] [address], [place] [address] Jan, [facility] [address] [id number] [address] [place] [address], [place] [address] Jan, [facility] [address] [id number] [address] [place] [address], [place] [address] Jan, [facility] [address] [id number] [address] [place] [address], [place] [address] Jan, [facility] [address] [id number] [address] [place] [address], [place] [address] Dec, [facility] [address] [id number] [address] [place] [address], [place] [address] Dec, [facility] [address] [id number] [address] [place] [address], [place] [address] Dec, [facility] [address] [id number] [address] [place] [address], [place] [address] Dec, [facility] [address] [id number] [address] [place] [address], [place] [address] Dec, [facility] [address] [id number] [address] [place] [address], [place] [address] Dec, [facility] [address] [place] [id number] Dec, [facility] [address] [place] [id number] Dec, [facility] [address] [id number] [address] [place] [address], [place] [address] Dec, [facility] [address] [id number] [address] [place] [address], [place] [address] Dec, [facility] [address] [id number] [address] [place] [address], [place] [address] Dec, [facility] [address] [id number] [facility] [place] [address] Dec, [facility] [address] [id number] [facility] [place] [address] Nov, [facility] [address] [id number] [facility] [place] [address] Nov, [facility] [address] [id number] [facility] [place] [address] Nov, [facility] [address] [id number] [facility] [place] [address] Nov, [facility] [address] [id number] [address] [place] [address], [place] [address] Nov, [facility] [address] [id number] [address] [place] [address], [place] [address] Nov, [facility] [address] [id number] [address] [place] [address], [place] [address] Nov, [facility] [address] [id number] [address] [place] [address], [place] [address] Nov, [facility] [address] [id number] [address] [place] [address], [place] [address] Nov, [facility] [address] [id number] [address] [place] [address], [place] [address] Nov, [facility] [address] [id number] [address] [place] [address], [place] [address] Nov, [facility] [address] [id number] [address] [place] [address], [place] [address] Nov, [facility] [address] [id number] [address] [place] [address], [place] [address] Nov, [facility] [address] [id number] [address] [place] [address], [place] [address] Oct, [facility] [address] [id number] [address] [place] [address] [address] Oct, [facility] [address] [id number] [facility] [place] [address] Oct, [facility] [address] [id number] [facility] [place] [address] Oct, [facility] [address] [id number] [facility] [place] [address] Oct, [facility] [address] [id number] [address] [place] [address], [place] [address] Oct, [facility] [address] [id number] [address] [place] [address], [place] [address] Oct, [facility] [address] [id number] [address] [place] [address], [place] [address] Oct, [facility] [address] [id number] [address] [place] [address], [place] [address] Oct, [facility] [address] [id number] [address] [place] [address], [place] [address] Oct, [facility] [address] [id number] [address] [place] [address], [place] [address] Oct, [facility] [address] [id number] [address] [place] [address], [place] [address] Oct, [facility] [address] [id number] [address] [place] [address], [place] [address] September, [facility] [address] [id number] [address] [place] [address], [place] [address] September, [facility] [address] [id number] [address] [place] [address], [place] [address] September, [facility] [address] [id number] [address] [place] [address], [place] [address] September, [facility] [address] [id number] [address] [place] [address], [place] [address] Aug, [facility] [address] [id number] [facility] [place] [address] Aug, [facility] [address] [id number] [address] [place] [address], [place] [address] Aug, [facility] [address] [id number] [facility] [place] [address] Aug, [facility] [address] [id number] [address] [place] [address], [place] [address] Aug, [facility] [address] [id number] [address] [place] [address], [place] [address] Aug, [facility] [address] [id number] [address] [place] [address], [place] [address] Aug, [facility] [address] [id number] [address] [place] [address], [place] [address] Jul, [facility] [address] [id number] [address] [place] [address], [place] [address] Jul, [facility] [address] [id number] [address] [place] [address], [place] [address] Jul, [facility] [address] [id number] [address] [place] [address], [place] [address] Jul, [facility] [address] [id number] [address] [place] [address], [place] [address] Jul, [facility] [address] [id number] [address] [place] [address], [place] [address] Jul, [facility] [address] [id number] [address] [place] [address], [place] [address] Jul, [facility] [address] [id number] [address] [place] [address], [place] [address] Jul, [facility] [address] [id number] [address] [place] [address], [place] [address] Jul, [facility] [address] [id number] [address] [place] [address], [place] [address] Jul, [facility] [address] [id number] [facility] [place] [address] 18 Jul, 2013 [facility] [address] [id number] [address] [place] [address], [place] [address] 18 Jul, 2013 [facility] [address] [id number] [address] [place] [address], [place] [address] 14 Jul, 2013 [facility] [address] [id number] [address] [place] [address], [place] [address] 14 Jul, 2013 [facility] [address] [id number] [address] [place] [address], [place] [address] Jul, [facility] [address] [id number] [address] [place] [address], [place] [address] Jul, [facility] [address] [id number] [address] [place] [address], [place] [address] Jul, [facility] [address] [id number] [address] [place] [address], [place] [address] Jul, [facility] [address] [id number] [address] [place] [address], [place] [address] Jun, [facility] [address] [id number] [address] [place] [address], [place] [address] Jun, [facility] [address] [id number] [address] [place] [address], [place] [address] Jun, [facility] [address] [id number] [address] [place] [address], [place] [address] 15 Jun, 2013 [facility] [address] [id number] [address] [place] [address], [place] [address] Jun, [facility] [address] [id number] [address] [place] [address], [place] [address] Jun, [facility] [address] [id number] [address] [place] [address], [place] [address] Jun, [facility] [address] [id number] [address] [place] [address], [place] [address] 14 Jun, 2013 [facility] [address] [id number] [address] [place] [address], [place] [address] 14 Jun, 2013 [facility] [address] [id number] [address] [place] [address], [place] [address] 14 Jun, 2013 [facility] [address] [id number] [address] [place] [address], [place] [address] 27 May, 2013 [facility] [address] [id number] [address] [place] [address], [place] [address] 27 May, 2013 [facility] [address] [id number] [address] [place] [address], [place] [address] 26 May, 2013 [facility] [address] [id number] [address] [place] [address], [place] [address] 19 May, 2013 [facility] [address] [id number] [address] [place] [address], [place] [address] 19 May, 2013 [facility] [address] [id number] [address] [place] [address], [place] [address] 16 May, 2013 [facility] [address] [id number] [address] [place] [address], [place] [address] 16 May, 2013 [facility] [address] [id number] [address] [place] [address], [place] [address] 16 May, 2013 [facility] [address] [id number] [address] [place] [address], [place] [address] 16 May, 2013 [facility] [address] [id number] [address] [place] [address], [place] [address] 13 May, 2013 [facility] [address] [id number] [address] [place] [address], [place] [address] 13 May, 2013 [facility] [address] [id number] [address] [place] [address], [place] [address] 11 May, 2013 [facility] [address] [id number] [address] [place] [address], [place] [address] Apr, [facility] [address] [id number] [address] [place] [address], [place] [address] 18 Apr, 2013 [facility] [address] [id number] [address] [place] [address], [place] [address] 18 Apr, 2013 [facility] [address] [id number] [address] [place] [address], [place] [address] Apr, [facility] [address] [id number] [address] [place] [address], [place] [address] Apr, [facility] [address] [id number] [address] [place] [address], [place] [address] Apr, [facility] [address] [id number] [address] [place] [address], [place] [address] Apr, [facility] [address] [id number] [address] [place] [address], [place] [address] Apr, [facility] [address] [id number] [address] [place] [address] Apr, [facility] [address] [id number] [address] [place] [address], [place] [address] Apr, [facility] [address] [id number] [address] [place] [address] Apr, [facility] [address] [id number] [address] [place] [address] Mar, [facility] [address] [id number] [address] [place] [address] Mar, [facility] [address] [id number] [address] [place] [address] Mar, [facility] [address] [id number] [address] [place] [address] Mar, [facility] [address] [id number] [address] [place] [address] Mar, [facility] [address] [id number] [address] [place] [address] Mar, [facility] [address] [id number] [address] [place] [address], [place] [address] Mar, [facility] [address] [id number] [address] [place] [address], [place] [address] Mar, [facility] [address] [id number] [address] [place] [address], [place] [address] Mar, [facility] [address] [id number] [address] [place] [address], [place] [address] Mar, [facility] [address] [id number] [address] [place] [address], [place] [address] Mar, [facility] [address] [id number] [address] [place] [address], [place] [address] Mar, [facility] [address] [id number] [address] [place] [address], [place] [address] 30 Jan, 2013 [facility] [address] [id number] [address] [place] [address], [place] [address] Jan, [facility] [address] [id number] [address] [place] [address], [place] [address] Jan, [facility] [address] [id number] [address] [place] [address], [place] [address] Jan, [facility] [address] [id number] [address] [place] [address], [place] [address] Dec, [facility] [address] [id number] [address] [place] [address], [place] [address] Dec, [facility] [address] [id number] [address] [place] [address], [place] [address] Dec, [facility] [address] [id number] [address] [place] [address], [place] [address] Dec, [facility] [address] [id number] [address] [place] [address], [place] [address] Dec, [facility] [address] [id number] [address] [place] [address], [place] [address] 14 Dec, 2012 [facility] [address] [id number] [address] [place] [address], [place] [address] Dec, [facility] [address] [id number] [address] [place] [address], [place] [address] Dec, [facility] [address] [id number] [address] [place] [address], [place] [address] Dec, [facility] [address] [id number] [address] [place] [address], [place] [address] Nov, [facility] [address] [id number] [address] [place] [address], [place] [address] Nov, [facility] [address] [id number] [address] [place] [address], [place] [address] Nov, [facility] [address] [id number] [address] [place] [address], [place] [address] Nov, [facility] [address] [id number] [address] [place] [address], [place] [address] Nov, [facility] [address] [id number] [address] [place] [address], [place] [address] Nov, [facility] [address] [id number] [address] [place] [address], [place] [address] Nov, [facility] [address] [id number] [address] [place] [address], [place] [address] Nov, [facility] [address] [id number] [address] [place] [address], [place] [address] Oct, [facility] [address] [id number] [address] [place] [address], [place] [address] Oct, [facility] [address] [id number] [address] [place] [address], [place] [address] Oct, [facility] [address] [id number] [address] [place] [address], [place] [address] Oct, [facility] [address] [id number] [address] [place] [address], [place] [address] Oct, [facility] [address] [id number] [address] [place] [address], [place] [address] Oct, [facility] [address] [id number] [address] [place] [address], [place] [address] Oct, [facility] [address] [id number] [address] [place] [address], [place] [address] Oct, [facility] [address] [id number] [address] [place] [address], [place] [address] 19 Oct, 2012 [facility] [address] [id number] [address] [place] [address], [place] [address] 18 Oct, 2012 [facility] [address] [id number] [address] [place] [address], [place] [address] 17 Oct, 2012 [facility] [address] [id number] [address] [place] [address], [place] [address] 14 Oct, 2012 [facility] [address] [id number] [address] [place] [address], [place] [address] 07 Oct, 2012 [facility] [address] [id number] [address] [place] [address], [place] [address] 30 Sep, 2012 [facility] [address] [id number] [address] [place] [address], [place] [address] September, [facility] [address] [id number] [address] [place] [address], [place] [address] September, [facility] [address] [id number] [address] [place] [address], [place] [address] Aug, [facility] [address] [id number] [address] [place] [address], [place] [address] 24 Aug, 2012 [facility] [address] [id number] [address] [place] [address], [place] [address] 18 Aug, 2012 [facility] [address] [id number] [address] [place] [address], [place] [address] 18 Aug, 2012 [facility] [address] [id number] [address] [place] [address], [place] [address] 18 Aug, 2012 [facility] [address] [id number] [address] [place] [address], [place] [address] 08 Aug, 2012 [facility] [address] [id number] [address] [place] [address], [place] [address] 05 Aug, 2012 [facility] [address] [id number] [address] [place] [address], [place] [address] 22 Jul, 2012 [facility] [address] [id number] [address] [place] [address], [place] [address] Jul, [facility] [address] [id number] [address] [place] [address], [place] [address] Jul, [facility] [address] [id number] [address] [place] [address], [place] [address] Jul, [facility] [address] [id number] [address] [place] [address], [place] [address] Jul, [facility] [address] [id number] [address] [place] [address], [place] [address] 22 Jul, 2012 [facility] [address] [id number] [address] [place] [address], [place] [address] Jul, [facility] [address] [id number] [address] [place] [address], [place] [address] Jul, [facility] [address] [id number] [address] [place] [address], [place] [address] Jul, [facility] [address] [id number] [address] [place] [address], [place] [address] 19 Jul, 2012 [facility] [address] [id number] [address] [place] [address], [place] [address] 11 Jul, 2012 [facility] [address] [id number] [address] [place] [address], [place] [address] 06 Jul, 2012 [facility] [address] [id number] [address] [place] [address], [place] [address] Jul, [facility] [address] [id number] [address] [place] [address], [place] [address] 24 Jun, 2012 [facility] [address] [id number] [address] [place] [address], [place] [address] Jun, [facility] [address] [id number] [address] [place] [address], [place] [address] Jun, [facility] [address] [id number] [address] [place] [address], [place] [address] 17 Jun, 2012 [facility] [address] [id number] [address] [place] [address], [place] [address] 15 Jun, 2012 [facility] [address] [id number] [address] [place] [address], [place] [address] 14 Jun, 2012 [facility] [address] [id number] [address] [place] [address], [place] [address] Jun, [facility] [facility] [address] [id number] [address] [place] [address], [place] [address] May, [facility] [address] [id number] [address] [place] [address], [place] [address] May, [facility] [address] [id number] [address] [place] [address], [place] [address] May, [facility] [address] [id number] [address] [place] [address], [place] [address] May, [facility] [address] [id number] [address] [place] [address], [place] [address] May, [facility] [address] [id number] [address] [place] [address], [place] [address] 24 May, 2012 [facility] [address] [id number] [address] [place] [address], [place] [address] May, [facility] [address] [id number] [address] [place] [address], [place] [address] May, [facility] [address] [id number] [address] [place] [address], [place] [address] May, [facility] [address] [id number] [address] [place] [address], [place] [address] May, [facility] [address] [id number] [address] [place] [address], [place] [address] Apr, [facility] [address] [id number] [address] [place] [address], [place] [address] Apr, [facility] [address] [id number] [address] [place] [address], [place] [address] Apr, [facility] [address] [id number] [address] [place] [address], [place] [address] Apr, [facility] [address] [id number] [address] [place] [address], [place] [address] Apr, [facility] [address] [id number] [address] [place] [address], [place] [address] Apr, [facility] [address] [id number] [address] [place] [address], [place] [address] Apr, [facility] [address] [id number] [address] [place] [address], [place] [address] Apr, [facility] [address] [id number] [address] [place] [address], [place] [address] Apr, [facility] [address] [id number] [address] [place] [address], [place] [address] Apr, [facility] [address] [id number] [address] [place] [address], [place] [address] Apr, [facility] [address] [id number] [address] [place] [address], [place] [address] Apr, [facility] [address] [id number] [address] [place] [address], [place] [address] Mar, [facility] [address] [id number] [address] [place] [address], [place] [address] 31 Mar, 2011 [facility] [address] [id number] [address] [place] [address], [place] [address] Mar, 2011 [facility] [address] [id number] [address] [place] [address], [place] [address] Mar, 2011 [facility] [address] [id number] [address] [place] [address], [place] [address] Mar, 2011 [facility] [address] [id number] [address] [place] [address], [place] [address] Mar, 2011 [facility] [address] [id number] [address] [place] [address], [place] [address] Mar, 2011 [facility] [address] [id number] [address] [place] [address], [place] [address] Mar, 2011 [facility] [address] [id number] [address] [place] [address], [place] [address] Mar, 2011 [facility] [address] [id number] [address] [place] [address], [place] [address] Mar, 2011 [facility] [address] [id number] [address] [place] [address], [place] [address] Mar, 2011 [facility] [address] [id number] [address] [place] [address], [place] [address] Mar, 2011 [facility] [address] [id number] [address] [place] [address] Mar, [facility] [address] [id number] [address] [place] [address], [place] [address] Mar, [facility] [address] [id number] [address] [place] [address], [place] [address] Mar, [facility] [address] [id number] [address] [place] [address] Mar, [facility] [address] [id number] [address] [place] [address] 25 Jan, 2011 [facility] [address] [id number] [address] [place] [address], [place] [address] 24 Sep, 2011 [facility] [address] [id number] [address] [place] [address], [place] [address] 22 Jan, 2011 [facility] [address] [id number] [address] [place] [address], [place] [address] 22 Jan, 2011 [facility] [address] [id number] [address] [place] [address], [place] [address] 21 Jan, 2011 [facility] [address] [id number] [address] [place] [address], [place] [address] 18 Jan, 2011 [facility] [address] [id number] [address] [place] [address], [place] [address] 14 Jan, 2012 [facility] [address] [id number] [address] [place] [address], [place] [address] 07 Jan, 2012 [facility] [address] [id number] [address] [place] [address], [place] [address] 15 Dec, 2011 [facility] [address] [id number] [address] [place] [address], [place] [address] 10 Dec, 2011 [facility] [address] [id number] [address] [place] [address], [place] [address] Dec, [facility] [address] [id number] [address] [place] [address], [place] [address] Dec, [facility] [address] [id number] [address] [place] [address], [place] [address] Dec, [facility] [address] [id number] [address] [place] [address], [place] [address] Dec, [facility] [address] [id number] [address] [place] [address], [place] [address] Dec, [facility] [address] [id number] [address] [place] [address], [place] [address] Nov, [facility] [address] [id number] [address] [place] [address], [place] [address] 06 Oct, 2011 [facility] [address] [id number] [address] [place] [address], [place] [address] 05 Aug, 2011 [facility] [address] [id number] [address] [place] [address], [place] [address] 22 Jul, 2011 [facility] [address] [id number] [address] [place] [address], [place] [address] 19 Jul, 2011 [facility] [address] [id number] [address] [place] [address], [place] [address] 16 Jul, 2011 [facility] [address] [id number] [address] [place] [address], [place] [address] 14 Jul, 2011 [facility] [address] [id number] [address] [place] [address], [place] [address] 07 Jul, 2011 [facility] [address] [id number] [address] [place] [address], [place] [address] 02 Jul, 2011 [facility] [address] [id number] [address] [place] [address], [place] [address] 21 Jul, 2011 [facility] [address] [id number] [address] [place] [address], [place] [address] 15 Jul, 2011 [facility] [address] [id number] [address] [place] [address], [place] [address] 13 Jul, 2011 [facility] [address] [id number] [address] [place] [address], [place] [address] 03 Jul, 2011 [facility] [address] [id number] [address] [place] [address], [place] [address] 02 Jul, 2011 [facility] [address] [id number] [address] [place] [address], [place] [address] 24 Jun, 2011 [facility] [address] [id number] [address] [place] [address], [place] [address] 24 Jun, 2011 [facility] [address] [id number] [address] [place] [address], [place] [address] 13 Jun, 2011 [facility] [address] [id number] [address] [place] [address], [place] [address] Jun, [facility] [address] [id number] [address] [place] [address], [place] [address] Jun, [facility] [address] [id number] [address] [place] [address], [place] [address] Jun, [facility] [address] [id number] [address] [place] [address], [place] [address] Jun, [facility] [address] [id number] [address] [place] [address], [place] [address] May, [facility] [address] [id number] [address] [place] [address], [place] [address] May, [facility] [address] [id number] [address] [place] [address], [place] [address] May, [facility] [address] [id number] [address] [place] [address], [place] [address] May, [facility] [address] [id number] [address] [place] [address], [place] [address] May, [facility] [address] [id number] [address] [place] [address], [place] [address] May, [facility] [address] [id number] [address] [place] [address], [place] [address] May, [facility] [address] [id number] [address] [place] [address], [place] [address] May, [facility] [address] [id number] [address] [place] [address], [place] [address] May, [facility] [address] [id number] [address] [place] [address], [place] [address] May, [facility] [address] [id number] [address] [place] [address], [place] [address] 15 Apr, 2011 [facility] [address] [id number] [address] [place] [address] Apr, [facility] [address] [facility] [id number] [address] [place] [address] Apr, [facility] [address] [facility] [id number] [address] [place] [address] Apr, [facility] [address] [facility] [id number] [address] [place] [address] Mar, [facility] [address] [facility] [id number] [address] [place] [address] Mar, [facility] [address] [facility] [id number] [address] [place] [address] Mar, [facility] [address] [facility] [id number] [address] [place] [address] Mar, IMMUNIZATIONS No Known Immunizations SOCIAL HISTORY [...] History Colonoscopy Hospitalization History surgeries Hospitalization History [facility] for seizures 03/24/[address] [facility] for kidney stones/hypertension 0 12/2017
--- OUTSIDE RECORDS SUMMARY | 2020-01-03 18:11 | XMS REPORT ---
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 Role Phone SABIHA MAST Unavailable PROBLEMS Type Condition ICD9-CM Code VIO65-GU Code Onset Dates Condition S tatus SNOMED Code Problem Major depressive disorder in partial remission F32 .4 Active 01327608 Problem FRANCIS (generalized anxiety disorder) F41.1 Active 97842010 Problem Conversion disorder (or hysterical neurosis, conversion ty pe) F44.9 Active 07511744 Problem Thoracic disc herniation M51.24 Activ e 307888624 Problem Slow transit constipation K59.01 Acti ve 15136697 Problem Constipation, unspecified constipation type K59.00 Active 00292866 Problem Mild episode of recurrent major depressive disorder F33.0 Active 936626273 Problem High blood pressure I10 Active 82057453 Problem Paroxysmal tachycardia I47.9 Active 29815633 Problem Nonadherence to medication Z91.14 Act vivian 235253998 Problem Seizure disorder G40.909 Active 128 576885 Problem Restless leg syndrome G25.81 Active 35416822 Problem Other chronic pain G89.29 Active 8 7822591 Problem Mild intermittent asthma without complication J45. 20 Active 846943690 Problem Obesity (BMI 30.0-34.9) E66.9 Active [id number] ALLERGIES No Information ENCOUNTERS Encounter Location Date Diagnosis [facility] [address] [facility] [id number] [address] [place] [address] [id number] 15 Aug, 2019 Dental examination Z01.20 an d Caries K02.9 [facility] [address] [facility] [id number] [address] [place] [address] Aug, [facility] [address] [facility] [id number] [address] [place] [address] Aug, [facility] [address] [id number] [address] [place] [address] 11 Aug, 2019 Other chronic pain G89.29 an d Back muscle spasm M62.830 [facility] [address] [id number] [address] [place] [id number] 07 Aug, 2019 [facility] [address] [id number] [address] [place] [address] Aug, Major depressive disorder in partial remission F32.4 ; FRANCIS (generalized anxiety disorder) F41.1 ; Restless leg syndrome G25.81 and Nonadherence to medication Z91.14 [facility] [address] [id number] [address] [place] [phone] Aug, [facility] [address] [id number] [address] [place] [address] Jul, [facility] [address] [id number] [address] [place] [address] Jul, [facility] [address] [id number] [address] [place] [address] Jul, Major depressive disorder in partial remission F32.4 ; FRANCIS (generalized anxiety disorder) F41.1 ; Restless leg syndrome G25.81 and High blood pressure I10 [facility] [address] [id number] [address] [place] [address] Jul, [facility] [address] [id number] [address] [place] [address] Jul, [facility] [address] [id number] [address] [place] [address] Jun, [facility] [address] [id number] [address] [place] [address] May, [facility] [address] [id number] [address] [place] [address] Apr, [facility] [address] [id number] [address] [place] [address] Apr, [facility] [address] [id number] [address] [place] [address] Mar, [facility] [address] [id number] [address] [place] [address] Mar, Major depressive disorder in partial remission F32.4 ; FRANCIS (generalized anxiety disorder) F41.1 and Restless leg syndrome G25.81 [facility] [address] [id number] [address] [place] [address] Mar, Obesity (BMI 30.0-34.9) E66. 9 [facility] [address] [id number] [address] [place] [address] Jan, [facility] [address] [facility] [id number] [address] [place] [address] Jan, Burn T30.0 [facility] [address] [id number] [address] [place] [address] Dec, [facility] [address] [id number] [address] [place] [address] Nov, [facility] [address] [id number] [address] [place] [address] Nov, [facility] [address] [id number] [address] [place] [address] [id number] Nov, Dental examination Z01.20 [facility] [address] [id number] [address] [place] [address] September, [facility] [address] [id number] [address] [place] [address] [id number] September, Decay, teeth K02.9 and Denta l examination Z01.20 [facility] [address] [id number] [address] [place] [address] [id number] September, Dental examination Z01.20 [facility] [address] [id number] [address] [place] [address] September, FRANCIS (generalized anxiety dis order) F41.1 ; Major depressive disorder in partial remission F32.4 and Restless leg syndrome G25.81 [facility] [address] [facility] [id number] [address] [place] [address] Aug, [facility] [address] [facility] [id number] [address] [place] [address] Jul, [facility] [address] [place] [id number] [address] [place] [address] Jul, Encounter to discuss test re sults Z71.2 [place] [address] [facility] [id number] [address] [place] [address] Jul, Pelvic pain R10.2 ; Screenin g for breast cancer Z12.31 and Obesity (BMI 30.0-34.9) E66.9 [place] [address] [place] [id number] [address] [place] [address] Jul, Mild intermittent asthma wit hout complication J45.20 [facility] [address] [place] [id number] [address] [place] [address] Jul, Major depressive disorder in partial remission F32.4 and FRANCIS (generalized anxiety disorder) F41.1 [place] [address] [place] [id number] [address] [place] [address] Jul, [facility] [address] [place] [id number] [address] [place] [address] Jun, [facility] [address] [place] [id number] [address] [place] [address] May, Major depressive disorder in partial remission F32.4 ; FRANCIS (generalized anxiety disorder) F41.1 and Restless leg syndrome G25.81 [facility] [address] [facility] [id number] [address] [place] [address] Apr, [facility] [address] [facility] [id number] [address] [place] [address] Mar, [facility] [address] [id number] [address] [place] [address] 21 Jan, 2018 Pain in thoracic spine M54.6 and Other chronic pain G89.29 [facility] [address] [id number] [address] [place] [address] 14 Jan, 2018 [facility] [address] [id number] [address] [place] [address] 11 Jan, 2018 Mild episode of recurrent ma saray depressive disorder F33.0 ; FRANCIS (generalized anxiety disorder) F41.1 and Restless leg syndrome G25.81 [facility] [address] [id number] [address] [place] [address] Dec, [facility] [address] [id number] [address] [place] [address] Dec, Hospital discharge follow-up Z09 [facility] [address] [id number] [address] [place] [address] Nov, [facility] [address] [id number] [address] [place] [address] Nov, [facility] [address] [id number] [address] [place] [address] September, [facility] [address] [id number] [address] [place] [address] September, [facility] [address] [id number] [address] [place] [address] September, Major depressive disorder in partial remission F32.4 ; FRANCIS (generalized anxiety disorder) F41.1 and Restless leg syndrome G25.81 [facility] [address] [id number] [address] [place] [address] September, [facility] [address] [id number] [address] [place] [address] Jul, [facility] [address] [id number] [address] [place] [address] Jul, Dorsalgia, unspecified M54.9 [facility] [address] [id number] [address] [place] [address] Jul, Mild episode of recurrent ma saray depressive disorder F33.0 and FRANCIS (generalized anxiety disorder) F41.1 [facility] [address] [id number] [address] [place] [address] May, [facility] [address] [id number] [address] [place] [address] May, Dysuria R30.0 and Acute cyst itis with hematuria N30.01 [facility] [address] [id number] [address] [place] [address] Apr, [place] [address] [facility] [id number] [address] [place] [address] Apr, Major depressive disorder in partial remission F32.4 and FRANCIS (generalized anxiety disorder) F41.1 [place] [address] [id number] [address] [place] [address] Mar, Paroxysmal tachycardia I47.9 [facility] [address] [id number] [address] [place] [address] Mar, Paroxysmal tachycardia I47.9 and Pain of left lower extremity M79.605 [place] [address] [id number] [address] [place] [address] Mar, FRANCIS (generalized anxiety dis order) F41.1 and Major depressive disorder in partial remission F32.4 [facility] [address] [id number] [address] [place] [address] Jan, [facility] [address] [id number] [address] [place] [phone] Jan, [place] [address] [facility] [id number] [address] [place] [address] Jan, [facility] [address] [id number] [address] [place] [address] Dec, Constipation, unspecified co nstipation type K59.00 [facility] [address] [id number] [address] [place] [address] Dec, [facility] [address] [facility] [id number] [address] [place] [address] Nov, [facility] [address] [facility] [id number] [address] [place] [address] Nov, Major depressive disorder in partial remission F32.4 and FRANCIS (generalized anxiety disorder) F41.1 [facility] [address] [id number] [address] [place] [address] Oct, Abdominal pain R10.9 and Slo w transit constipation K59.01 [place] [address] [facility] [id number] [address] [place] [address] Aug, Major depressive disorder in partial remission F32.4 ; FRANCIS (generalized anxiety disorder) F41.1 ; Conversion disorder (or hysterical neurosis, conversion type) F44.9 ; Dorsalgia, unspecified M54.9 and Long-term use of high-risk medication Z79.899 [place] [address] [facility] [id number] [address] [place] [address] Aug, [place] [address] [facility] [id number] [address] [place] [address] Jul, Paroxysmal tachycardia I47.9 [place] [address] [facility] [id number] [address] [place] [address] Jul, Paroxysmal tachycardia I47.9 [facility] [address] [facility] [id number] [address] [place] [address] Jun, [place] [address] [facility] [id number] [address] [place] [address] Jun, Major depressive disorder in partial remission F32.4 ; FRANCIS (generalized anxiety disorder) F41.1 and Conversion disorder (or hysterical neurosis, conversion type) F44.9 [facility] [address] [facility] [id number] [address] [place] [address] May, Pelvic pain R10.2 [facility] [address] [facility] [id number] [address] [place] [address] Apr, Gastroenteritis K52.9 [facility] [address] [facility] [id number] [address] [place] [address] Apr, Blood in urine R31.9 and Acu te cystitis with hematuria N30.01 [facility] [address] [facility] [id number] [address] [place] [address] Apr, Major depressive disorder in partial remission F32.4 ; FRANCIS (generalized anxiety disorder) F41.1 and Conversion disorder (or hysterical neurosis, conversion type) F44.9 [facility] [address] [facility] [id number] [address] [place] [address] Apr, [facility] [address] [place] [id number] [place] [address] Apr, Abnormal mammogram R92.8 [facility] [address] [facility] [id number] [address] [place] [address] Mar, [facility] [address] [facility] [id number] [place] [address] Mar, Gastroenteritis K52.9 and Se izure disorder G40.909 [facility] [address] [place] [id number] [address] [place] [address] Dec, [facility] [address] [facility] [id number] [address] [place] [address] Dec, Other headache syndrome G44. 89 [facility] [address] [facility] [id number] [address] [place] [address] Dec, [facility] [address] [place] [id number] [address] [place] [address] Dec, Thoracic disc herniation M51 .24 [facility] [address] [place] [id number] [address] [place] [address] Dec, [place] [address] [id number] [address] [place] [address] Nov, Major depressive disorder in partial remission F32.4 and FRANCIS (generalized anxiety disorder) F41.1 [facility] [address] [id number] [address] [place] [address] Nov, [facility] [address] [id number] [address] [place] [address] Nov, Dorsalgia, unspecified M54.9 [facility] [address] [id number] [address] [place] [address] Oct, [facility] [address] [id number] [address] [place] [address] September, [facility] [address] [id number] [address] [place] [address] Aug, [facility] [address] [id number] [address] [place] [address] Aug, Major depressive disorder in partial remission F32.4 and FRANCIS (generalized anxiety disorder) F41.1 [facility] [address] [id number] [address] [place] [address] Aug, [facility] [address] [id number] [address] [place] [address] Jul, Abnormal mammogram R92.8 [facility] [address] [id number] [address] [place] [address] Jul, [facility] [address] [id number] [address] [place] [address] Jul, [facility] [address] [id number] [address] [place] [phone] 14 Jul, 2015 [facility] [address] [id number] [address] [place] [address] Jul, [facility] [address] [id number] [address] [place] [address] Jul, [facility] [address] [id number] [address] [place] [address] Jul, [facility] [address] [id number] [address] [place] [address] Jun, Major depressive disorder in partial remission F32.4 and FRANCIS (generalized anxiety disorder) F41.1 [facility] [address] [id number] [address] [place] [address] Jun, [facility] [address] [id number] [address] [place] [address] May, [facility] [address] [id number] [address] [place] [address] Apr, [facility] [address] [facility] [id number] [address] [place] [address] Mar, Major depressive disorder, r ecurrent episode, moderate F33.1 ; PTSD (post-traumatic stress disorder) F43.10 and FRANCIS (generalized anxiety disorder) F41.1 [facility] [address] [id number] [address] [place] [address] Mar, [facility] [address] [id number] [address] [place] [address] Mar, [facility] [address] [facility] [id number] [address] [place] [address] Mar, [facility] [address] [id number] [address] [place] [address] Mar, [facility] [address] [id number] [address] [place] [address] Jan, [facility] [address] [id number] [address] [place] [address] Jan, [facility] [address] [id number] [address] [place] [address] Jan, [facility] [address] [id number] [address] [place] [address] Jan, Thoracic disc herniation 722 .11 [facility] [address] [id number] [address] [place] [address] Dec, [facility] [address] [id number] [address] [place] [address] Dec, [facility] [address] [id number] [address] [place] [address] Dec, [facility] [address] [id number] [address] [place] [address] Nov, [facility] [address] [id number] [address] [place] [address] Nov, Generalized anxiety disorder 300.02 ; Posttraumatic stress disorder 309.81 and Major depressive disorder, recurrent episode, moderate 296.32 [facility] [address] [id number] [address] [place] [address] Nov, [facility] [address] [id number] [address] [place] [address] Nov, [facility] [address] [id number] [address] [place] [address] Oct, [facility] [address] [id number] [address] [place] [address] Oct, [facility] [address] [id number] [address] [place] [address] Oct, [facility] [address] [id number] [address] [place] [address] September, [facility] [address] [id number] [address] [place] [address] September, [facility] [address] [id number] [address] [place] [address] Aug, [facility] [address] [id number] [address] [place] [address] Aug, [facility] [address] [id number] [address] [place] [address], [place] [address] 25 Jul, 2014 [facility] [address] [id number] [address] [place] [address], [place] [address] Jul, [facility] [address] [id number] [address] [place] [address], [place] [address] 17 Jul, 2014 [facility] [address] [id number] [address] [place] [address], [place] [address] 17 Jul, 2014 [facility] [address] [id number] [address] [place] [address], [place] [address] 16 Jul, 2014 [facility] [address] [id number] [address] [place] [address], [place] [address] 16 Jul, 2014 [facility] [address] [id number] [address] [place] [address], [place] [address] 19 Jul, 2014 [facility] [address] [id number] [address] [place] [address], [place] [address] 19 Jul, 2014 [facility] [address] [id number] [address] [place] [address], [place] [address] Jul, [facility] [address] [id number] [address] [place] [address], [place] [address] Jul, [facility] [address] [id number] [address] [place] [address], [place] [address] Jun, [facility] [address] [id number] [address] [place] [address], [place] [address] Jun, [facility] [address] [id number] [address] [place] [address], [place] [address] Jun, [facility] [address] [id number] [address] [place] [address], [place] [address] May, [facility] [address] [id number] [address] [place] [address], [place] [address] Apr, [facility] [address] [id number] [address] [place] [address] [address] Apr, [facility] [address] [id number] [address] [place] [address], [place] [address] Apr, [facility] [address] [id number] [address] [place] [address], [place] [address] Apr, [facility] [address] [id number] [address] [place] [address], [place] [address] Apr, [facility] [address] [id number] [address] [place] [address], [place] [address] Apr, [facility] [address] [id number] [address] [place] [address], [place] [address] Apr, [facility] [address] [id number] [address] [place] [address], [place] [address] Apr, [facility] [address] [id number] [address] [place] [address], [place] [address] Mar, [facility] [address] [id number] [address] [place] [address], [place] [address] Mar, [facility] [address] [id number] [address] [place] [address], [place] [address] Mar, [facility] [address] [id number] [address] [place] [address], [place] [address] Mar, [facility] [address] [id number] [address] [place] [id number] Mar, [facility] [address] [id number] [address] [place] [address] Mar, [facility] [address] [id number] [address] [place] [address] [address] Mar, [facility] [address] [id number] [address] [place] [address], [place] [address] Mar, [facility] [address] [id number] [address] [place] [address], [place] [address] Mar, [facility] [address] [id number] [address] [place] [address], [place] [address] 2013 [facility] [address] [id number] [address] [place] [address], [place] [address] 17 Mar, 2013 [facility] [address] [id number] [address] [place] [address], [place] [address] 14 Mar, 2013 [facility] [address] [id number] [address] [place] [address], [place] [address] 14 Mar, 2013 [facility] [address] [id number] [address] [place] [address], [place] [address] 07 Mar, 2013 [facility] [address] [id number] [address] [place] [address], [place] [address] 07 Mar, 2013 [facility] [address] [id number] [address] [place] [address], [place] [address] 06 Mar, 2013 [facility] [address] [id number] [address] [place] [address], [place] [address] 06 Mar, 2013 [facility] [address] [id number] [address] [place] [address], [place] [address] 19 Sep, 2013 [facility] [address] [id number] [address] [place] [address], [place] [address] 19 Sep, 2013 [facility] [address] [id number] [address] [place] [address], [place] [address] 09 Sep, 2013 [facility] [address] [id number] [address] [place] [address], [place] [address] 09 Sep, 2013 [facility] [address] [id number] [address] [place] [address] 05 Sep, 2013 [facility] [address] [id number] [address] [place] [address], [place] [address] 05 Sep, 2013 [facility] [address] [id number] [address] [place] [address], [place] [address] 05 Sep, 2013 [facility] [address] [id number] [address] [place] [address], [place] [address] 05 Sep, 2013 [facility] [address] [id number] [address] [place] [address], [place] [address] Jan, 2013 [facility] [address] [id number] [address] [place] [address], [place] [address] Jan, [facility] [address] [id number] [address] [place] [address], [place] [address] Jan, [facility] [address] [id number] [address] [place] [address], [place] [address] Jan, [facility] [address] [id number] [address] [place] [address], [place] [address] Jan, [facility] [address] [id number] [address] [place] [address], [place] [address] Dec, [facility] [address] [id number] [address] [place] [address], [place] [address] Dec, [facility] [address] [id number] [address] [place] [address], [place] [address] Dec, [facility] [address] [id number] [address] [place] [address], [place] [address] Dec, [facility] [address] [id number] [address] [place] [address], [place] [address] Dec, [facility] [address] [id number] [address] [place] [address], [place] [address] Dec, [facility] [address] [place] [id number] Dec, [facility] [address] [place] [id number] Dec, [facility] [address] [id number] [address] [place] [address], [place] [address] Dec, [facility] [address] [id number] [address] [place] [address], [place] [address] Dec, [facility] [address] [id number] [address] [place] [address], [place] [address] Dec, [facility] [address] [id number] [facility] [place] [address] Dec, [facility] [address] [id number] [facility] [place] [address] Nov, [facility] [address] [id number] [facility] [place] [address] Nov, [facility] [address] [id number] [facility] [place] [address] Nov, [facility] [address] [id number] [facility] [place] [address] Nov, [facility] [address] [id number] [address] [place] [address], [place] [address] Nov, [facility] [address] [id number] [address] [place] [address], [place] [address] Nov, [facility] [address] [id number] [address] [place] [address], [place] [address] Nov, [facility] [address] [id number] [address] [place] [address], [place] [address] Nov, [facility] [address] [id number] [address] [place] [address], [place] [address] Nov, [facility] [address] [id number] [address] [place] [address], [place] [address] Nov, [facility] [address] [id number] [address] [place] [address], [place] [address] Nov, [facility] [address] [id number] [address] [place] [address], [place] [address] Nov, [facility] [address] [id number] [address] [place] [address], [place] [address] Nov, [facility] [address] [id number] [address] [place] [address], [place] [address] Oct, [facility] [address] [id number] [address] [place] [address] [address] Oct, [facility] [address] [id number] [facility] [place] [address] Oct, [facility] [address] [id number] [facility] [place] [address] Oct, [facility] [address] [id number] [facility] [place] [address] Oct, [facility] [address] [id number] [address] [place] [address], [place] [address] Oct, [facility] [address] [id number] [address] [place] [address], [place] [address] Oct, [facility] [address] [id number] [address] [place] [address], [place] [address] Oct, [facility] [address] [id number] [address] [place] [address], [place] [address] Oct, [facility] [address] [id number] [address] [place] [address], [place] [address] Oct, [facility] [address] [id number] [address] [place] [address], [place] [address] Oct, [facility] [address] [id number] [address] [place] [address], [place] [address] Oct, [facility] [address] [id number] [address] [place] [address], [place] [address] September, [facility] [address] [id number] [address] [place] [address], [place] [address] September, [facility] [address] [id number] [address] [place] [address], [place] [address] September, [facility] [address] [id number] [address] [place] [address], [place] [address] September, [facility] [address] [id number] [address] [place] [address], [place] [address] Aug, [facility] [address] [id number] [facility] [address] Aug, [facility] [address] [id number] [address] [place] [address], [place] [address] Aug, [facility] [address] [id number] [facility] [place] [address] Aug, [facility] [address] [id number] [address] [place] [address], [place] [address] Aug, [facility] [address] [id number] [address] [place] [address], [place] [address] Aug, [facility] [address] [id number] [address] [place] [address], [place] [address] Aug, [facility] [address] [id number] [address] [place] [address], [place] [address] Jul, [facility] [address] [id number] [address] [place] [address], [place] [address] Jul, [facility] [address] [id number] [address] [place] [address], [place] [address] Jul, [facility] [address] [id number] [address] [place] [address], [place] [address] Jul, [facility] [address] [id number] [address] [place] [address], [place] [address] Jul, [facility] [address] [id number] [address] [place] [address], [place] [address] Jul, [facility] [address] [id number] [address] [place] [address], [place] [address] Jul, [facility] [address] [id number] [address] [place] [address], [place] [address] Jul, [facility] [address] [id number] [address] [place] [address], [place] [address] Jul, [facility] [address] [id number] [address] [place] [address], [place] [address] Jul, [facility] [address] [id number] [facility] [place] [address] 18 Jul, 2013 [facility] [address] [id number] [address] [place] [address], [place] [address] 18 Jul, 2013 [facility] [address] [id number] [address] [place] [address], [place] [address] 14 Jul, 2013 [facility] [address] [id number] [address] [place] [address], [place] [address] 14 Jul, 2013 [facility] [address] [id number] [address] [place] [address], [place] [address] Jul, [facility] [address] [id number] [address] [place] [address], [place] [address] Jul, [facility] [address] [id number] [address] [place] [address], [place] [address] Jul, [facility] [address] [id number] [address] [place] [address], [place] [address] Jul, [facility] [address] [id number] [address] [place] [address], [place] [address] Jun, [facility] [address] [id number] [address] [place] [address], [place] [address] Jun, [facility] [address] [id number] [address] [place] [address], [place] [address] Jun, [facility] [address] [id number] [address] [place] [address], [place] [address] 15 Jun, 2013 [facility] [address] [id number] [address] [place] [address], [place] [address] Jun, [facility] [address] [id number] [address] [place] [address], [place] [address] Jun, [facility] [address] [id number] [address] [place] [address], [place] [address] Jun, [facility] [address] [id number] [address] [place] [address], [place] [address] 14 Jun, 2013 [facility] [address] [id number] [address] [place] [address], [place] [address] 14 Jun, 2013 [facility] [address] [id number] [address] [place] [address], [place] [address] 14 Jun, 2013 [facility] [address] [id number] [address] [place] [address], [place] [address] 27 May, 2013 [facility] [address] [id number] [address] [place] [address], [place] [address] 27 May, 2013 [facility] [address] [id number] [address] [place] [address], [place] [address] 26 May, 2013 [facility] [address] [id number] [address] [place] [address], [place] [address] 19 May, 2013 [facility] [address] [id number] [address] [place] [address], [place] [address] 19 May, 2013 [facility] [address] [id number] [address] [place] [address], [place] [address] 16 May, 2013 [facility] [address] [id number] [address] [place] [address], [place] [address] 16 May, 2013 [facility] [address] [id number] [address] [place] [address], [place] [address] 16 May, 2013 [facility] [address] [id number] [address] [place] [address], [place] [address] 16 May, 2013 [facility] [address] [id number] [address] [place] [address], [place] [address] 13 May, 2013 [facility] [address] [id number] [address] [place] [address], [place] [address] 13 May, 2013 [facility] [address] [id number] [address] [place] [address], [place] [address] 11 May, 2013 [facility] [address] [id number] [address] [place] [address], [place] [address] Apr, [facility] [address] [id number] [address] [place] [address], [place] [address] 18 Apr, 2013 [facility] [address] [id number] [address] [place] [address], [place] [address] 18 Apr, 2013 [facility] [address] [id number] [address] [place] [address], [place] [address] Apr, [facility] [address] [id number] [address] [place] [address], [place] [address] Apr, [facility] [address] [id number] [address] [place] [address], [place] [address] Apr, [facility] [address] [id number] [address] [place] [address], [place] [address] Apr, [facility] [address] [id number] [address] [place] [address], [place] [address] Apr, [facility] [address] [id number] [address] [place] [address] Apr, [facility] [address] [id number] [address] [place] [address], [place] [address] Apr, [facility] [address] [id number] [address] [place] [address] Apr, [facility] [address] [id number] [address] [place] [address] Mar, [facility] [address] [id number] [address] [place] [address] Mar, [facility] [address] [id number] [address] [place] [address] Mar, [facility] [address] [id number] [address] [place] [address] Mar, [facility] [address] [id number] [address] [place] [address] Mar, [facility] [address] [id number] [address] [place] [address] Mar, [facility] [address] [id number] [address] [place] [address], [place] [address] Mar, [facility] [address] [id number] [address] [place] [address], [place] [address] Mar, [facility] [address] [id number] [address] [place] [address], [place] [address] Mar, [facility] [address] [id number] [address] [place] [address], [place] [address] Mar, [facility] [address] [id number] [address] [place] [address], [place] [address] Mar, [facility] [address] [id number] [address] [place] [address], [place] [address] Mar, [facility] [address] [id number] [address] [place] [address], [place] [address] 30 Jan, 2013 [facility] [address] [id number] [address] [place] [address], [place] [address] Jan, [facility] [address] [id number] [address] [place] [address], [place] [address] Jan, [facility] [address] [id number] [address] [place] [address], [place] [address] Jan, [facility] [address] [id number] [address] [place] [address], [place] [address] Dec, [facility] [address] [id number] [address] [place] [address], [place] [address] Dec, [facility] [address] [id number] [address] [place] [address], [place] [address] Dec, [facility] [address] [id number] [address] [place] [address], [place] [address] Dec, [facility] [address] [id number] [address] [place] [address], [place] [address] Dec, [facility] [address] [id number] [address] [place] [address], [place] [address] 14 Dec, 2012 [facility] [address] [id number] [address] [place] [address], [place] [address] Dec, [facility] [address] [id number] [address] [place] [address], [place] [address] Dec, [facility] [address] [id number] [address] [place] [address], [place] [address] Dec, [facility] [address] [id number] [address] [place] [address], [place] [address] Nov, [facility] [address] [id number] [address] [place] [address], [place] [address] Nov, [facility] [address] [id number] [address] [place] [address], [place] [address] Nov, [facility] [address] [id number] [address] [place] [address], [place] [address] Nov, [facility] [address] [id number] [address] [place] [address], [place] [address] Nov, [facility] [address] [id number] [address] [place] [address], [place] [address] Nov, [facility] [address] [id number] [address] [place] [address], [place] [address] Nov, [facility] [address] [id number] [address] [place] [address], [place] [address] Nov, [facility] [address] [id number] [address] [place] [address], [place] [address] Oct, [facility] [address] [id number] [address] [place] [address], [place] [address] Oct, [facility] [address] [id number] [address] [place] [address], [place] [address] Oct, [facility] [address] [id number] [address] [place] [address], [place] [address] Oct, [facility] [address] [id number] [address] [place] [address], [place] [address] Oct, [facility] [address] [id number] [address] [place] [address], [place] [address] Oct, [facility] [address] [id number] [address] [place] [address], [place] [address] Oct, [facility] [address] [id number] [address] [place] [address], [place] [address] Oct, [facility] [address] [id number] [address] [place] [address], [place] [address] 19 Oct, 2012 [facility] [address] [id number] [address] [place] [address], [place] [address] 18 Oct, 2012 [facility] [address] [id number] [address] [place] [address], [place] [address] 17 Oct, 2012 [facility] [address] [id number] [address] [place] [address], [place] [address] 14 Oct, 2012 [facility] [address] [id number] [address] [place] [address], [place] [address] 07 Oct, 2012 [facility] [address] [id number] [address] [place] [address], [place] [address] 30 Sep, 2012 [facility] [address] [id number] [address] [place] [address], [place] [address] September, [facility] [address] [id number] [address] [place] [address], [place] [address] September, [facility] [address] [id number] [address] [place] [address], [place] [address] Aug, [facility] [address] [id number] [address] [place] [address], [place] [address] 24 Aug, 2012 [facility] [address] [id number] [address] [place] [address], [place] [address] 18 Aug, 2012 [facility] [address] [id number] [address] [place] [address], [place] [address] 18 Aug, 2012 [facility] [address] [id number] [address] [place] [address], [place] [address] 18 Aug, 2012 [facility] [address] [id number] [address] [place] [address], [place] [address] 08 Aug, 2012 [facility] [address] [id number] [address] [place] [address], [place] [address] 05 Aug, 2012 [facility] [address] [id number] [address] [place] [address], [place] [address] 22 Jul, 2012 [facility] [address] [id number] [address] [place] [address], [place] [address] Jul, [facility] [address] [id number] [address] [place] [address], [place] [address] Jul, [facility] [address] [id number] [address] [place] [address], [place] [address] Jul, [facility] [address] [id number] [address] [place] [address], [place] [address] Jul, [facility] [address] [id number] [address] [place] [address], [place] [address] 22 Jul, 2012 [facility] [address] [id number] [address] [place] [address], [place] [address] Jul, [facility] [address] [id number] [address] [place] [address], [place] [address] Jul, [facility] [address] [id number] [address] [place] [address], [place] [address] Jul, [facility] [address] [id number] [address] [place] [address], [place] [address] 19 Jul, 2012 [facility] [address] [id number] [address] [place] [address], [place] [address] 11 Jul, 2012 [facility] [address] [id number] [address] [place] [address], [place] [address] 06 Jul, 2012 [facility] [address] [id number] [address] [place] [address], [place] [address] Jul, [facility] [address] [id number] [address] [place] [address], [place] [address] 24 Jun, 2012 [facility] [address] [id number] [address] [place] [address], [place] [address] Jun, [facility] [address] [id number] [address] [place] [address], [place] [address] Jun, [facility] [address] [id number] [address] [place] [address], [place] [address] 17 Jun, 2012 [facility] [address] [id number] [address] [place] [address], [place] [address] 15 Jun, 2012 [facility] [address] [id number] [address] [place] [address], [place] [address] 14 Jun, 2012 [facility] [address] [id number] [address] [place] [address], [place] [address] Jun, [facility] [address] [id number] [address] [place] [address], [place] [address] May, [facility] [address] [id number] [address] [place] [address], [place] [address] May, [facility] [address] [id number] [address] [place] [address], [place] [address] May, [facility] [address] [id number] [address] [place] [address], [place] [address] May, [facility] [address] [id number] [address] [place] [address], [place] [address] May, [facility] [address] [id number] [address] [place] [address], [place] [address] 24 May, 2012 [facility] [address] [id number] [address] [place] [address], [place] [address] May, [facility] [address] [id number] [address] [place] [address], [place] [address] May, [facility] [address] [id number] [address] [place] [address], [place] [address] May, [facility] [address] [id number] [address] [place] [address], [place] [address] May, [facility] [address] [id number] [address] [place] [address], [place] [address] Apr, [facility] [address] [id number] [address] [place] [address], [place] [address] Apr, [facility] [address] [id number] [address] [place] [address], [place] [address] Apr, [facility] [address] [id number] [address] [place] [address], [place] [address] Apr, [facility] [address] [id number] [address] [place] [address], [place] [address] Apr, [facility] [address] [id number] [address] [place] [address], [place] [address] Apr, [facility] [address] [id number] [address] [place] [address], [place] [address] Apr, [facility] [address] [id number] [address] [place] [address], [place] [address] Apr, [facility] [address] [id number] [address] [place] [address], [place] [address] Apr, [facility] [address] [id number] [address] [place] [address], [place] [address] Apr, [facility] [address] [id number] [address] [place] [address], [place] [address] Apr, [facility] [address] [id number] [address] [place] [address], [place] [address] Apr, [facility] [address] [id number] [address] [place] [address], [place] [address] Mar, [facility] [address] [id number] [address] [place] [address], [place] [address] 31 Mar, 2011 [facility] [address] [id number] [address] [place] [address], [place] [address] Mar, 2011 [facility] [address] [id number] [address] [place] [address], [place] [address] Mar, 2011 [facility] [address] [id number] [address] [place] [address], [place] [address] Mar, 2011 [facility] [address] [id number] [address] [place] [address], [place] [address] Mar, 2011 [facility] [address] [id number] [address] [place] [address], [place] [address] Mar, 2011 [facility] [address] [id number] [address] [place] [address], [place] [address] Mar, 2011 [facility] [address] [id number] [address] [place] [address], [place] [address] Mar, 2011 [facility] [address] [id number] [address] [place] [address], [place] [address] Mar, 2011 [facility] [address] [id number] [address] [place] [address], [place] [address] Mar, 2011 [facility] [address] [id number] [address] [place] [address], [place] [address] Mar, 2011 [facility] [address] [id number] [address] [place] [address] Mar, [facility] [address] [id number] [address] [place] [address], [place] [address] Mar, [facility] [address] [id number] [address] [place] [address], [place] [address] Mar, [facility] [address] [id number] [address] [place] [address] Mar, [facility] [address] [id number] [address] [place] [address] 25 Jan, 2011 [facility] [address] [id number] [address] [place] [address], [place] [address] 24 Sep, 2011 [facility] [address] [id number] [address] [place] [address], [place] [address] 22 Jan, 2011 [facility] [address] [id number] [address] [place] [address], [place] [address] 22 Jan, 2011 [facility] [address] [id number] [address] [place] [address], [place] [address] 21 Jan, 2011 [facility] [address] [id number] [address] [place] [address], [place] [address] 18 Jan, 2011 [facility] [address] [id number] [address] [place] [address], [place] [address] 14 Jan, 2012 [facility] [address] [id number] [address] [place] [address], [place] [address] 07 Jan, 2012 [facility] [address] [id number] [address] [place] [address], [place] [address] 15 Dec, 2011 [facility] [address] [id number] [address] [place] [address], [place] [address] 10 Dec, 2011 [facility] [address] [id number] [address] [place] [address], [place] [address] Dec, [facility] [address] [id number] [address] [place] [address], [place] [address] Dec, [facility] [address] [id number] [address] [place] [address], [place] [address] Dec, [facility] [address] [id number] [address] [place] [address], [place] [address] Dec, [facility] [address] [id number] [address] [place] [address], [place] [address] Dec, [facility] [address] [id number] [address] [place] [address], [place] [address] Nov, [facility] [address] [id number] [address] [place] [address], [place] [address] 06 Oct, 2011 [facility] [address] [id number] [address] [place] [address], [place] [address] 05 Aug, 2011 [facility] [address] [id number] [address] [place] [address], [place] [address] 22 Jul, 2011 [facility] [address] [id number] [address] [place] [address], [place] [address] 19 Jul, 2011 [facility] [address] [id number] [address] [place] [address], [place] [address] 16 Jul, 2011 [facility] [address] [id number] [address] [place] [address], [place] [address] 14 Jul, 2011 [facility] [address] [id number] [address] [place] [address], [place] [address] 07 Jul, 2011 [facility] [address] [id number] [address] [place] [address], [place] [address] 02 Jul, 2011 [facility] [address] [id number] [address] [place] [address], [place] [address] 21 Jul, 2011 [facility] [address] [id number] [address] [place] [address], [place] [address] 15 Jul, 2011 [facility] [address] [id number] [address] [place] [address], [place] [address] 13 Jul, 2011 [facility] [address] [id number] [address] [place] [address], [place] [address] 03 Jul, 2011 [facility] [address] [id number] [address] [place] [address], [place] [address] 02 Jul, 2011 [facility] [address] [id number] [address] [place] [address], [place] [address] 24 Jun, 2011 [facility] [address] [id number] [address] [place] [address], [place] [address] 24 Jun, 2011 [facility] [address] [id number] [address] [place] [address], [place] [address] 13 Jun, 2011 [facility] [address] [id number] [address] [place] [address], [place] [address] Jun, [facility] [address] [id number] [address] [place] [address], [place] [address] Jun, [facility] [address] [id number] [address] [place] [address], [place] [address] Jun, [facility] [address] [id number] [address] [place] [address], [place] [address] Jun, [facility] [address] [id number] [address] [place] [address], [place] [address] May, [facility] [address] [id number] [address] [place] [address], [place] [address] May, [facility] [address] [id number] [address] [place] [address], [place] [address] May, [facility] [address] [id number] [address] [place] [address], [place] [address] May, [facility] [address] [id number] [address] [place] [address], [place] [address] May, [facility] [address] [id number] [address] [place] [address], [place] [address] May, [facility] [address] [id number] [address] [place] [address], [place] [address] May, [facility] [address] [id number] [address] [place] [address], [place] [address] May, [facility] [address] [id number] [address] [place] [address], [place] [address] May, [facility] [address] [id number] [address] [place] [address], [place] [address] May, [facility] [address] [id number] [address] [place] [address], [place] [address] 15 Apr, 2011 [facility] [address] [id number] [address] [place] [address] Apr, [facility] [address] [facility] [id number] [address] [place] [address] Apr, [facility] [address] [facility] [id number] [address] [place] [address] Apr, [facility] [address] [facility] [id number] [address] [place] [address] Mar, [facility] [address] [facility] [id number] [address] [place] [address] Mar, [facility] [address] [facility] [id number] [address] [place] [address] Mar, [facility] [address] [facility] [id number] [address] [place] [address] Mar, IMMUNIZATIONS No Known Immunizations SOCIAL HISTORY [...] History Colonoscopy Hospitalization History surgeries Hospitalization History [facility] for seizures 03/24/16 Hospitalization History [facility] for kidney stones/hypertension 0 12/2017
--- OUTSIDE RECORDS SUMMARY | 2020-01-03 18:12 | XMS REPORT ---
Author Author Pattie YUNG Organization [facility] Address [address] [place] [address] Care Team Providers Care Chemical Process Analyst Name Role Phone DILSHADRAFAELARASH Unavailable PROBLEMS Type Condition ICD9-CM Code IQA88-GT Code Onset Dates Condition S tatus SNOMED Code Problem Major depressive disorder in partial remission F32 .4 Active 96562638 Problem FRANCIS (generalized anxiety disorder) F41.1 Active 59300909 Problem Conversion disorder (or hysterical neurosis, conversion ty pe) F44.9 Active 20151129 Problem Thoracic disc herniation M51.24 Activ e 239473572 Problem Slow transit constipation K59.01 Acti ve 77871553 Problem Constipation, unspecified constipation type K59.00 Active 93013359 Problem Mild episode of recurrent major depressive disorder F33.0 Active 150050174 Problem High blood pressure I10 Active 49631186 Problem Paroxysmal tachycardia I47.9 Active 96773287 Problem Nonadherence to medication Z91.14 Act vivian 712260754 Problem Seizure disorder G40.909 Active 128 491687 Problem Restless leg syndrome G25.81 Active 52561255 Problem Other chronic pain G89.29 Active 8 5685735 Problem Mild intermittent asthma without complication J45. 20 Active 034081947 Problem Obesity (BMI 30.0-34.9) E66.9 Active [id number] ALLERGIES No Information ENCOUNTERS Encounter Location Date Diagnosis [facility] [address] [facility] [id number] [address] [place] [phone] Aug, [facility] [address] [id number] [address] [place] [id number] 15 Aug, 2019 [facility] [address] [facility] [id number] [address] [place] [phone] Aug, [facility] [address] [facility] [id number] [address] [place] [phone] Aug, [facility] [address] [id number] [address] [place] [phone] Aug, Other chronic pain G89.29 an d Back muscle spasm M62.830 [facility] [address] [id number] [address] [place] [phone] Aug, [facility] [address] [id number] [address] [place] [id number] Aug, Major depressive disorder in partial remission F32.4 ; FRANCIS (generalized anxiety disorder) F41.1 ; Restless leg syndrome G25.81 and Nonadherence to medication Z91.14 [facility] [address] [id number] [address] [place] [phone] Aug, [facility] [address] [id number] [address] [place] [phone] Jul, [facility] [address] [id number] [address] [place] [phone] Jul, [facility] [address] [id number] [address] [place] [phone] Jul, Major depressive disorder in partial remission F32.4 ; FRANCIS (generalized anxiety disorder) F41.1 ; Restless leg syndrome G25.81 and High blood pressure I10 [facility] [address] [id number] [address] [place] [id number] Jul, [facility] [address] [id number] [address] [place] [phone] Jul, [facility] [address] [id number] [address] [place] [phone] Jun, [facility] [address] [id number] [address] [place] [phone] May, [facility] [address] [id number] [address] [place] [phone] Apr, [facility] [address] [id number] [address] [place] [phone] Apr, [facility] [address] [id number] [address] [place] [phone] Mar, [facility] [address] [place] [id number] [place] [phone] Mar, Major depressive disorder in partial remission F32.4 ; FRANCIS (generalized anxiety disorder) F41.1 and Restless leg syndrome G25.81 [facility] [address] [facility] [id number] [place] [phone] Mar, Obesity (BMI 30.0-34.9) E66. 9 [facility] [address] [facility] [id number] [place] [phone] Jan, [facility] [address] [facility] [id number] [place] [phone] Jan, Burn T30.0 [facility] [address] [facility] [id number] [address] [place] [phone] Dec, [facility] [address] [facility] [id number] [address] [place] [phone] Nov, [facility] [address] [place] [id number] [place] [phone] Nov, [facility] [address] [place] [id number] [place] [address] [id number] Nov, Dental examination Z01.20 [facility] [address] [id number] [address] [place] [phone] September, [facility] [address] [id number] [place] [id number] September, Decay, teeth K02.9 and Denta l examination Z01.20 [facility] [address] [id number] [address] [place] [id number] September, Dental examination Z01.20 [facility] [address] [id number] [address] [place] [phone] September, FRANCIS (generalized anxiety dis order) F41.1 ; Major depressive disorder in partial remission F32.4 and Restless leg syndrome G25.81 [place] [id number] [facility] [id number] [address] [place] [phone] Aug, [facility] [address] [facility] [id number] [address] [place] [phone] Jul, [place] [address] [facility] [id number] [address] [place] [phone] Jul, Encounter to discuss test re sults Z71.2 [place] [address] [facility] [id number] [address] [place] [phone] Jul, Pelvic pain R10.2 ; Screenin g for breast cancer Z12.31 and Obesity (BMI 30.0-34.9) E66.9 [place] [address] [place] [id number] [address] [place] [phone] Jul, Mild intermittent asthma wit hout complication J45.20 [place] [address] [facility] [id number] [address] [place] [phone] Jul, Major depressive disorder in partial remission F32.4 and FRANCIS (generalized anxiety disorder) F41.1 [place] [address] [facility] [id number] [address] [place] [phone] Jul, [place] [address] [facility] [id number] [address] [place] [phone] Jun, [place] [address] [facility] [id number] [address] [place] [phone] May, Major depressive disorder in partial remission F32.4 ; FRANCIS (generalized anxiety disorder) F41.1 and Restless leg syndrome G25.81 [facility] [address] [facility] [id number] [address] [place] [phone] Apr, [place] [address] [facility] [id number] [address] [place] [phone] Mar, [facility] [address] [id number] [address] [place] [id number] 21 Jan, 2018 Pain in thoracic spine M54.6 and Other chronic pain G89.29 [facility] [address] [id number] [address] [place] [id number] 14 Jan, 2018 [facility] [address] [id number] [address] [place] [phone] 11 Jan, 2018 Mild episode of recurrent ma saray depressive disorder F33.0 ; FRANCIS (generalized anxiety disorder) F41.1 and Restless leg syndrome G25.81 [facility] [address] [id number] [address] [place] [phone] Dec, [facility] [address] [id number] [address] [place] [phone] Dec, Hospital discharge follow-up Z09 [facility] [address] [id number] [address] [place] [phone] Nov, [facility] [address] [id number] [address] [place] [phone] Nov, [facility] [address] [id number] [address] [place] [phone] September, [facility] [address] [id number] [address] [place] [phone] September, [facility] [address] [id number] [address] [place] [id number] September, Major depressive disorder in partial remission F32.4 ; FRANCIS (generalized anxiety disorder) F41.1 and Restless leg syndrome G25.81 [facility] [address] [id number] [address] [place] [phone] September, [facility] [address] [id number] [address] [place] [phone] Jul, [facility] [address] [id number] [address] [place] [phone] Jul, Dorsalgia, unspecified M54.9 [facility] [address] [id number] [address] [place] [phone] Jul, Mild episode of recurrent ma saray depressive disorder F33.0 and FRANCIS (generalized anxiety disorder) F41.1 [facility] [address] [id number] [address] [place] [phone] May, [facility] [address] [id number] [address] [place] [phone] May, Dysuria R30.0 and Acute cyst itis with hematuria N30.01 [place] [address] [id number] [address] [place] [phone] Apr, [facility] [address] [facility] [id number] [address] [place] [phone] Apr, Major depressive disorder in partial remission F32.4 and FRANCIS (generalized anxiety disorder) F41.1 [facility] [address] [id number] [address] [place] [phone] Mar, Paroxysmal tachycardia I47.9 [place] [address] [id number] [address] [place] [id number] Mar, Paroxysmal tachycardia I47.9 and Pain of left lower extremity M79.605 [facility] [address] [id number] [address] [place] [phone] Mar, FRANCIS (generalized anxiety dis order) F41.1 and Major depressive disorder in partial remission F32.4 [facility] [address] [id number] [address] [place] [phone] Jan, [facility] [address] [facility] [id number] [address] [place] [phone] 14 Jan, 2017 [facility] [address] [id number] [address] [place] [phone] Jan, [facility] [address] [facility] [id number] [address] [place] [phone] Dec, Constipation, unspecified co nstipation type K59.00 [facility] [address] [id number] [address] [place] [phone] Dec, [facility] [address] [id number] [address] [place] [phone] Nov, [facility] [address] [facility] [id number] [address] [place] [phone] Nov, Major depressive disorder in partial remission F32.4 and FRNACIS (generalized anxiety disorder) F41.1 [facility] [address] [id number] [address] [place] [phone] Oct, Abdominal pain R10.9 and Slo w transit constipation K59.01 [place] [address] [id number] [address] [place] [phone] Aug, Major depressive disorder in partial remission F32.4 ; FRANCIS (generalized anxiety disorder) F41.1 ; Conversion disorder (or hysterical neurosis, conversion type) F44.9 ; Dorsalgia, unspecified M54.9 and Long-term use of high-risk medication Z79.899 [place] [address] [facility] [id number] [address] [place] [phone] Aug, [place] [address] [facility] [id number] [address] [place] [phone] Jul, Paroxysmal tachycardia I47.9 [place] [address] [id number] [address] [place] [phone] Jul, Paroxysmal tachycardia I47.9 [facility] [address] [id number] [address] [place] [phone] Jun, [place] [id number] [facility] [id number] [address] [place] [phone] Jun, Major depressive disorder in partial remission F32.4 ; FRANCIS (generalized anxiety disorder) F41.1 and Conversion disorder (or hysterical neurosis, conversion type) F44.9 [facility] [address] [id number] [address] [place] [phone] May, Pelvic pain R10.2 [facility] [address] [id number] [address] [place] [phone] 30 Apr, 2016 Gastroenteritis K52.9 [facility] [address] [id number] [address] [place] [phone] Apr, Blood in urine R31.9 [address] Acu te cystitis with hematuria N30.01 [facility] [address] [id number] [address] [place] [id number] 17 Apr, 2016 Major depressive disorder in partial remission F32.4 ; FRANCIS (generalized anxiety disorder) F41.1 and Conversion disorder (or hysterical neurosis, conversion type) F44.9 [place] [address] [facility] [id number] [address] [place] [phone] Apr, [facility] [address] [facility] [id number] [address] [place] [phone] Apr, Abnormal mammogram R92.8 [facility] [address] [id number] [address] [place] [id number] Mar, [place] [address] [facility] [id number] [address] [place] [phone] Mar, Gastroenteritis K52.9 and Se izure disorder G40.909 [facility] [address] [id number] [address] [place] [phone] Dec, [facility] [address] [id number] [address] [place] [phone] Dec, Other headache syndrome G44. 89 [facility] [address] [facility] [id number] [address] [place] [id number] Dec, [facility] [address] [facility] [id number] [address] [place] [id number] Dec, Thoracic disc herniation M51 .24 [facility] [address] [facility] [id number] [address] [place] [id number] Dec, [facility] [address] [id number] [address] [place] [phone] Nov, Major depressive disorder in partial remission F32.4 and FRANCIS (generalized anxiety disorder) F41.1 [facility] [address] [id number] [address] [place] [phone] Nov, [facility] [address] [id number] [address] [place] [phone] Nov, Dorsalgia, unspecified M54.9 [facility] [address] [id number] [address] [place] [phone] Oct, [facility] [address] [id number] [address] [place] [phone] September, [facility] [address] [id number] [address] [place] [phone] Aug, [facility] [address] [id number] [address] [place] [id number] Aug, Major depressive disorder in partial remission F32.4 and FRANCIS (generalized anxiety disorder) F41.1 [facility] [address] [id number] [address] [place] [phone] Aug, [facility] [address] [id number] [address] [place] [phone] Jul, Abnormal mammogram R92.8 [facility] [address] [id number] [address] [place] [id number] Jul, [facility] [address] [id number] [address] [place] [phone] Jul, [facility] [address] [id number] [address] [place] [phone] 14 Jul, 2015 [facility] [address] [id number] [address] [place] [phone] Jul, [facility] [address] [id number] [address] [place] [id number] Jul, [facility] [address] [id number] [address] [place] [phone] Jul, [facility] [address] [facility] [id number] [address] [place] [id number] Jun, Major depressive disorder in partial remission F32.4 and FRANCIS (generalized anxiety disorder) F41.1 [facility] [address] [id number] [address] [place] [id number] Jun, [facility] [address] [id number] [address] [place] [id number] May, [facility] [address] [facility] [id number] [address] [place] [phone] Apr, [facility] [address] [facility] [id number] [address] [place] [id number] Mar, Major depressive disorder, r ecurrent episode, moderate F33.1 ; PTSD (post-traumatic stress disorder) F43.10 and FRANCIS (generalized anxiety disorder) F41.1 [facility] [address] [id number] [address] [place] [phone] Mar, [facility] [address] [id number] [address] [place] [phone] Mar, [facility] [address] [facility] [id number] [address] [place] [id number] Mar, [facility] [address] [id number] [address] [place] [phone] Mar, [facility] [address] [facility] [id number] [address] [place] [phone] Jan, [facility] [address] [facility] [id number] [address] [place] [phone] Jan, [facility] [address] [facility] [id number] [address] [place] [phone] Jan, [facility] [address] [id number] [address] [place] [id number] Jan, Thoracic disc herniation 722 .11 [facility] [address] [id number] [address] [place] [id number] Dec, [facility] [address] [id number] [address] [place] [phone] Dec, [facility] [address] [id number] [address] [place] [phone] Dec, [facility] [address] [id number] [address] [place] [phone] Nov, [facility] [address] [id number] [address] [place] [id number] Nov, Generalized anxiety disorder 300.02 ; Posttraumatic stress disorder 309.81 and Major depressive disorder, recurrent episode, moderate 296.32 [facility] [address] [id number] [address] [place] [phone] Nov, [facility] [address] [id number] [address] [place] [id number] Nov, [facility] [address] [id number] [address] [place] [phone] Oct, [facility] [address] [id number] [address] [place] [phone] Oct, [facility] [address] [id number] [address] [place] [phone] Oct, [facility] [address] [id number] [address] [place] [id number] September, [facility] [address] [id number] [address] [place] [phone] September, [facility] [address] [id number] [address] [place] [id number] 14 Aug, 2014 [facility] [address] [id number] [address] [place] [phone] Aug, [facility] [address] [id number] [address] [place] [address], [place] [phone] Jul, [facility] [address] [id number] [address] [place] [address], [place] [phone] 25 Jul, 2014 [facility] [address] [id number] [address] [place] [address], [place] [phone] 17 Jul, 2014 [facility] [address] [id number] [address] [place] [address], [place] [phone] 17 Jul, 2014 [facility] [address] [id number] [address] [place] [address], [place] [address] 16 Jul, 2014 [facility] [address] [id number] [address] [place] [address], [place] [address] 16 Jul, 2014 [facility] [address] [id number] [address] [place] [address], [place] [address] 19 Jul, 2014 [facility] [address] [id number] [address] [place] [address], [place] [address] Jul, [facility] [address] [id number] [address] [place] [address], [place] [address] Jul, [facility] [address] [id number] [address] [place] [address], [place] [address] Jul, [facility] [address] [id number] [address] [place] [address], [place] [address] Jun, [facility] [address] [id number] [address] [place] [address], [place] [address] Jun, [facility] [address] [id number] [address] [place] [address], [place] [address] Jun, [facility] [address] [id number] [address] [place] [address], [place] [address] May, [facility] [address] [id number] [address] [place] [address], [place] [address] Apr, [facility] [address] [id number] [address] [place] [address], [place] [address] Apr, [facility] [address] [id number] [address] [place] [address], [place] [address] Apr, [facility] [address] [id number] [address] [place] [address], [place] [address] Apr, [facility] [address] [id number] [address] [place] [address], [place] [address] Apr, [facility] [address] [id number] [address] [place] [address], [place] [address] Apr, [facility] [address] [id number] [address] [place] [address], [place] [address] Apr, [facility] [address] [id number] [address] [place] [address], [place] [address] Apr, [facility] [address] [id number] [address] [place] [address], [place] [address] Mar, [facility] [address] [id number] [address] [place] [address], [place] [address] Mar, [facility] [address] [id number] [address] [place] [address], [place] [address] Mar, [facility] [address] [id number] [address] [place] [address], [place] [address] Mar, [facility] [address] [id number] [address] [place] [address], [place] [address] Mar, [facility] [address] [id number] [address] [place] [address], [place] [address] Mar, [facility] [address] [id number] [address] [place] [address], [place] [address] Mar, [facility] [address] [id number] [address] [place] [address], [place] [address] Mar, [facility] [address] [id number] [address] [place] [address], [place] [address] Mar, [facility] [address] [id number] [address] [place] [address], [place] [address] Mar, [facility] [address] [id number] [address] [place] [address], [place] [address] Mar, [facility] [address] [id number] [address] [place] [address], [place] [address] 14 Mar, 2014 [facility] [address] [id number] [address] [place] [address], [place] [address] 14 Mar, 2013 [facility] [address] [id number] [address] [place] [address], [place] [address] Mar, [facility] [address] [id number] [address] [place] [address], [place] [address] Mar, [facility] [address] [id number] [address] [place] [address], [place] [address] Mar, [facility] [address] [id number] [address] [place] [address], [place] [address] Mar, [facility] [address] [id number] [address] [place] [address], [place] [address] 19 Sep, 2013 [facility] [address] [id number] [address] [place] [address], [place] [address] 19 Sep, 2013 [facility] [address] [id number] [address] [place] [address], [place] [address] 09 Sep, 2013 [facility] [address] [id number] [address] [place] [address], [place] [address] 09 Sep, 2013 [facility] [address] [id number] [address] [place] [address], [place] [address] 05 Sep, 2013 [facility] [address] [id number] [address] [place] [address], [place] [address] 05 Sep, 2013 [facility] [address] [id number] [address] [place] [address], [place] [address] 05 Sep, 2013 [facility] [address] [id number] [address] [place] [address] [place] [address] 05 Jan, 2013 [facility] [address] [id number] [address] [place] [address], [place] [address] 03 Jan, 2013 [facility] [address] [id number] [address] [place] [address], [place] [address] Jan, 2013 [facility] [address] [id number] [address] [place] [address], [place] [address] Jan, 2013 [facility] [address] [id number] [address] [place] [address], [place] [address] Jan, 2013 [facility] [address] [id number] [address] [place] [address], [place] [address] Jan, [facility] [address] [id number] [address] [place] [address], [place] [address] Dec, [facility] [address] [id number] [address] [place] [address], [place] [address] Dec, [facility] [address] [id number] [address] [place] [address], [place] [address] Dec, [facility] [address] [id number] [address] [place] [address], [place] [address] Dec, [facility] [address] [id number] [address] [place] [address], [place] [address] Dec, [facility] [address] [id number] [address] [place] [address], [place] [address] Dec, [facility] [address] [place] [id number] Dec, [facility] [address] [place] [id number] Dec, [facility] [address] [id number] [address] [place] [address], [place] [address] Dec, [facility] [address] [id number] [address] [place] [address], [place] [address] Dec, [facility] [address] [id number] [address] [place] [address], [place] [address] Dec, [facility] [address] [id number] [facility] [place] [address] Dec, [facility] [address] [id number] [address] [place] [address], [place] [address] Nov, [facility] [address] [id number] [address] [place] [address], [place] [address] Nov, [facility] [address] [id number] [address] [place] [address], [place] [address] Nov, [facility] [address] [id number] [address] [place] [address], [place] [address] Nov, [facility] [address] [id number] [address] [place] [address], [place] [address] Nov, [facility] [address] [id number] [address] [place] [address], [place] [address] Nov, [facility] [address] [id number] [address] [place] [address], [place] [address] Nov, [facility] [address] [id number] [address] [place] [address], [place] [address] Nov, [facility] [address] [id number] [address] [place] [address], [place] [address] Nov, [facility] [address] [id number] [address] [place] [address], [place] [address] Nov, [facility] [address] [id number] [address] [place] [address], [place] [address] Nov, [facility] [address] [id number] [address] [place] [address], [place] [address] Nov, [facility] [address] [id number] [address] [place] [address], [place] [address] Nov, [facility] [address] [id number] [address] [place] [address], [place] [address] Oct, [facility] [address] [id number] [facility] [place] [address] Oct, [facility] [address] [id number] [facility] [place] [address] Oct, [facility] [address] [id number] [facility] [place] [address] Oct, [facility] [address] [id number] [facility] [place] [address] Oct, [facility] [address] [id number] [address] [place] [address], [place] [address] Oct, [facility] [address] [id number] [address] [place] [address], [place] [address] Oct, [facility] [address] [id number] [address] [place] [address], [place] [address] Oct, [facility] [address] [id number] [address] [place] [address], [place] [address] Oct, [facility] [address] [id number] [address] [place] [address], [place] [address] Oct, [facility] [address] [id number] [address] [place] [address], [place] [address] Oct, [facility] [address] [id number] [address] [place] [address], [place] [address] Oct, [facility] [address] [id number] [address] [place] [address], [place] [address] September, [facility] [address] [id number] [address] [place] [address], [place] [address] September, [facility] [address] [id number] [address] [place] [address], [place] [address] September, [facility] [address] [id number] [address] [place] [address], [place] [address] September, [facility] [address] [id number] [address] [place] [address], [place] [address] Aug, [facility] [address] [id number] [facility] [place] [address] Aug, [facility] [address] [id number] [facility] [place] [address] Aug, [facility] [address] [id number] [facility] [place] [address] Aug, [facility] [address] [id number] [address] [place] [address], [place] [address] Aug, [facility] [address] [id number] [facility] [place] [address] Aug, [facility] [address] [id number] [address] [place] [address], [place] [address] Aug, [facility] [address] [id number] [address] [place] [address], [place] [address] Jul, [facility] [address] [id number] [address] [place] [address], [place] [address] Jul, [facility] [address] [id number] [address] [place] [address], [place] [address] Jul, [facility] [address] [id number] [address] [place] [address], [place] [address] Jul, [facility] [address] [id number] [address] [place] [address], [place] [address] Jul, [facility] [address] [id number] [address] [place] [address], [place] [address] Jul, [facility] [address] [id number] [address] [place] [address], [place] [address] 18 Jul, 2013 [facility] [address] [id number] [address] [place] [address], [place] [address] Jul, [facility] [address] [id number] [address] [place] [address], [place] [address] Jul, [facility] [address] [id number] [address] [place] [address], [place] [address] 18 Jul, 2013 [facility] [address] [id number] [address] [place] [address], [place] [address] 18 Jul, 2013 [facility] [address] [id number] [address] [place] [address], [place] [address] 18 Jul, 2013 [facility] [address] [id number] [address] [place] [address], [place] [address] 14 Jul, 2013 [facility] [address] [id number] [address] [place] [address], [place] [address] 14 Jul, 2013 [facility] [address] [id number] [address] [place] [address], [place] [address] 11 Jul, 2013 [facility] [address] [id number] [address] [place] [address], [place] [address] 11 Jul, 2013 [facility] [address] [id number] [address] [place] [address], [place] [address] 11 Jul, 2013 [facility] [address] [id number] [address] [place] [address], [place] [address] 11 Jul, 2013 [facility] [address] [id number] [address] [place] [address], [place] [address] Jun, [facility] [address] [id number] [address] [place] [address], [place] [address] 31 Jun, 2013 [facility] [address] [id number] [address] [place] [address], [place] [address] 15 Jun, 2013 [facility] [address] [id number] [address] [place] [address], [place] [address] 15 Jun, 2013 [facility] [address] [id number] [address] [place] [address], [place] [address] 14 Jun, 2013 [facility] [address] [id number] [address] [place] [address], [place] [address] 14 Jun, 2013 [facility] [address] [id number] [address] [place] [address], [place] [address] 14 Jun, 2013 [facility] [address] [id number] [address] [place] [address], [place] [address] 14 Jun, 2013 [facility] [address] [id number] [address] [place] [address], [place] [address] 14 Jun, 2013 [facility] [address] [id number] [address] [place] [address], [place] [address] 14 Jun, 2013 [facility] [address] [id number] [address] [place] [address], [place] [address] 27 May, 2013 [facility] [address] [id number] [address] [place] [address], [place] [address] 27 May, 2013 [facility] [address] [id number] [address] [place] [address], [place] [address] 26 May, 2013 [facility] [address] [id number] [address] [place] [address], [place] [address] 19 May, 2013 [facility] [address] [id number] [address] [place] [address], [place] [address] 19 May, 2013 [facility] [address] [id number] [address] [place] [address], [place] [address] 16 May, 2013 [facility] [address] [id number] [address] [place] [address], [place] [address] 16 May, 2013 [facility] [address] [id number] [address] [place] [address], [place] [address] 16 May, 2013 [facility] [address] [id number] [address] [place] [address], [place] [address] 16 May, 2013 [facility] [address] [id number] [address] [place] [address], [place] [address] 13 May, 2013 [facility] [address] [id number] [address] [place] [address], [place] [address] 13 May, 2013 [facility] [address] [id number] [address] [place] [address], [place] [address] 11 May, 2013 [facility] [address] [id number] [address] [place] [address], [place] [address] 20 Apr, 2013 [facility] [address] [id number] [address] [place] [address], [place] [address] 18 Apr, 2013 [facility] [address] [id number] [address] [place] [address], [place] [address] 18 Apr, 2013 [facility] [address] [id number] [address] [place] [address], [place] [address] 13 Apr, 2013 [facility] [address] [id number] [address] [place] [address], [place] [address] 13 Apr, 2013 [facility] [address] [id number] [address] [place] [address], [place] [address] 08 Apr, 2013 [facility] [address] [id number] [address] [place] [address], [place] [address] 08 Apr, 2013 [facility] [address] [id number] [address] [place] [address], [place] [address] 07 Apr, 2013 [facility] [address] [id number] [address] [place] [address], [place] [address] 07 Apr, 2013 [facility] [address] [id number] [address] [place] [address], [place] [address] 07 Apr, 2013 [facility] [address] [id number] [address] [place] [address], [place] [address] 07 Apr, 2013 [facility] [address] [id number] [address] [place] [address], [place] [address] Mar, [facility] [address] [id number] [address] [place] [address], [place] [address] Mar, [facility] [address] [id number] [address] [place] [address], [place] [address] Mar, [facility] [address] [id number] [address] [place] [address], [place] [address] Mar, [facility] [address] [id number] [address] [place] [address] Mar, [facility] [address] [id number] [address] [place] [address], [place] [address] Mar, [facility] [address] [id number] [address] [place] [address], [place] [address] Mar, [facility] [address] [id number] [address] [place] [address], [place] [address] Mar, [facility] [address] [id number] [address] [place] [address], [place] [address] Mar, [facility] [address] [id number] [address] [place] [address], [place] [address] Mar, [facility] [address] [id number] [address] [place] [address], [place] [address] Mar, [facility] [address] [id number] [address] [place] [address], [place] [address] Mar, [facility] [address] [id number] [address] [place] [address], [place] [address] 30 Jan, 2013 [facility] [address] [id number] [address] [place] [address], [place] [address] Jan, [facility] [address] [id number] [address] [place] [address], [place] [address] 20 Jan, 2013 [facility] [address] [id number] [address] [place] [address], [place] [address] Jan, [facility] [address] [id number] [address] [place] [address], [place] [address] Dec, [facility] [address] [id number] [address] [place] [address], [place] [address] Dec, [facility] [address] [id number] [address] [place] [address], [place] [address] Dec, [facility] [address] [id number] [address] [place] [address], [place] [address] Dec, [facility] [address] [id number] [address] [place] [address], [place] [address] Dec, [facility] [address] [id number] [address] [place] [address], [place] [address] Dec, [facility] [address] [id number] [address] [place] [address], [place] [address] Dec, [facility] [address] [id number] [address] [place] [address], [place] [address] Dec, [facility] [address] [id number] [address] [place] [address], [place] [address] Dec, [facility] [address] [id number] [address] [place] [address], [place] [address] Nov, [facility] [address] [id number] [address] [place] [address], [place] [address] Nov, [facility] [address] [id number] [address] [place] [address], [place] [address] Nov, [facility] [address] [id number] [address] [place] [address], [place] [address] Nov, [facility] [address] [id number] [address] [place] [address], [place] [address] Nov, [facility] [address] [id number] [address] [place] [address], [place] [address] Nov, [facility] [address] [id number] [address] [place] [address], [place] [address] Nov, [facility] [address] [id number] [address] [place] [address], [place] [address] Nov, [facility] [address] [id number] [address] [place] [address], [place] [address] Oct, [facility] [address] [id number] [address] [place] [address], [place] [address] Oct, [facility] [address] [id number] [address] [place] [address], [place] [address] Oct, [facility] [address] [id number] [address] [place] [address], [place] [address] 25 Oct, 2012 [facility] [address] [id number] [address] [place] [address], [place] [address] Oct, [facility] [address] [id number] [address] [place] [address], [place] [address] Oct, [facility] [address] [id number] [address] [place] [address], [place] [address] Oct, [facility] [address] [id number] [address] [place] [address], [place] [address] Oct, [facility] [address] [id number] [address] [place] [address], [place] [address] Oct, [facility] [address] [id number] [address] [place] [address], [place] [address] 18 Oct, 2012 [facility] [address] [id number] [address] [place] [address], [place] [address] 17 Oct, 2012 [facility] [address] [id number] [address] [place] [address], [place] [address] 14 Oct, 2012 [facility] [address] [id number] [address] [place] [address], [place] [address] 07 Oct, 2012 [facility] [address] [id number] [address] [place] [address], [place] [address] 30 Sep, 2012 [facility] [address] [id number] [address] [place] [address], [place] [address] September, [facility] [address] [id number] [address] [place] [address], [place] [address] September, [facility] [address] [id number] [address] [place] [address], [place] [address] Aug, [facility] [address] [id number] [address] [place] [address], [place] [address] 24 Aug, 2012 [facility] [address] [id number] [address] [place] [address], [place] [address] Aug, [facility] [address] [id number] [address] [place] [address], [place] [address] Aug, [facility] [address] [id number] [address] [place] [address], [place] [address] Aug, [facility] [address] [id number] [address] [place] [address], [place] [address] Aug, [facility] [address] [id number] [address] [place] [address], [place] [address] Aug, [facility] [address] [id number] [address] [place] [address], [place] [address] Jul, [facility] [address] [id number] [address] [place] [address], [place] [address] Jul, [facility] [address] [id number] [address] [place] [address], [place] [address] Jul, [facility] [address] [id number] [address] [place] [address], [place] [address] Jul, [facility] [address] [id number] [address] [place] [address], [place] [address] Jul, [facility] [address] [id number] [address] [place] [address], [place] [address] Jul, [facility] [address] [id number] [address] [place] [address], [place] [address] Jul, [facility] [address] [id number] [address] [place] [address], [place] [address] Jul, [facility] [address] [id number] [address] [place] [address], [place] [address] Jul, [facility] [address] [id number] [address] [place] [address], [place] [address] Jul, [facility] [address] [id number] [address] [place] [address], [place] [address] Jul, [facility] [address] [id number] [address] [place] [address], [place] [address] 06 Jul, 2012 [facility] [address] [id number] [address] [place] [address], [place] [address] Jul, [facility] [address] [id number] [address] [place] [address], [place] [address] 24 Jun, 2012 [facility] [address] [id number] [address] [place] [address], [place] [address] Jun, [facility] [address] [id number] [address] [place] [address], [place] [address] Jun, [facility] [address] [id number] [address] [place] [address], [place] [address] 17 Jun, 2012 [facility] [address] [id number] [address] [place] [address], [place] [address] 15 Jun, 2012 [facility] [address] [id number] [address] [place] [address], [place] [address] 14 Jun, 2012 [facility] [address] [id number] [address] [place] [address], [place] [address] Jun, [facility] [address] [id number] [address] [place] [address], [place] [address] May, [facility] [address] [id number] [address] [place] [address], [place] [id number] May, [facility] [address] [id number] [address] [place] [address], [place] [address] May, [facility] [address] [id number] [address] [place] [address], [place] [address] May, [facility] [address] [id number] [address] [place] [address], [place] [address] May, [facility] [address] [id number] [address] [place] [address], [place] [address] 24 May, 2012 [facility] [address] [id number] [address] [place] [address], [place] [address] May, [facility] [address] [id number] [address] [place] [address], [place] [address] May, [facility] [address] [id number] [address] [place] [address], [place] [address] May, [facility] [address] [id number] [address] [place] [address], [place] [address] May, [facility] [address] [id number] [address] [place] [address], [place] [address] Apr, [facility] [address] [id number] [address] [place] [address], [place] [address] Apr, [facility] [address] [id number] [address] [place] [address], [place] [address] Apr, [facility] [address] [id number] [address] [place] [address], [place] [address] Apr, [facility] [address] [id number] [address] [place] [address], [place] [address] Apr, [facility] [address] [id number] [address] [place] [address], [place] [address] Apr, [facility] [address] [id number] [address] [place] [address], [place] [address] Apr, [facility] [address] [id number] [address] [place] [phone] Apr, [facility] [address] [id number] [address] [place] [id number] Apr, [facility] [address] [id number] [address] [place] [address], [place] [address] Apr, [facility] [address] [id number] [address] [place] [address], [place] [address] Apr, [facility] [address] [id number] [address] [place] [phone] Apr, [facility] [address] [id number] [address] [place] [phone] Mar, 2011 [facility] [address] [id number] [address] [place] [id number] Mar, 2011 [facility] [address] [id number] [address] [place] [phone] Mar, 2011 [facility] [address] [id number] [address] [place] [id number] Mar, 2011 [facility] [address] [id number] [address] [place] [phone] Mar, 2011 [facility] [address] [id number] [address] [place] [phone] Mar, 2011 [facility] [address] [id number] [address] [place] [id number] Mar, 2011 [facility] [address] [id number] [address] [place] [phone] Mar, 2011 [facility] [address] [id number] [address] [place] [phone] Mar, 2011 [facility] [address] [id number] [address] [place] [phone] Mar, 2011 [facility] [address] [id number] [address] [place] [phone] Mar, 2011 [facility] [address] [id number] [address] [place] [phone] Mar, 2011 [facility] [address] [id number] [address] [place] [id number] Mar, [facility] [address] [id number] [address] [place] [phone] Mar, [facility] [address] [id number] [address] [place] [phone] Mar, [facility] [address] [id number] [address] [place] [id number] Mar, [facility] [address] [id number] [facility] [place] [address] 25 Sep, 2011 [facility] [address] [id number] [facility] [place] [address] 24 Sep, 2011 [facility] [address] [id number] [facility] [place] [address] 22 Jan, 2011 [facility] [address] [id number] [address] [place] [address], [place] [address] 22 Jan, 2011 [facility] [address] [id number] [address] [place] [address], [place] [address] 21 Jan, 2011 [facility] [address] [id number] [address] [place] [address], [place] [address] 18 Jan, 2011 [facility] [address] [id number] [address] [place] [address], [place] [address] 14 Jan, 2011 [facility] [address] [id number] [address] [place] [address], [place] [address] 07 Jan, 2011 [facility] [address] [id number] [address] [place] [address], [place] [address] 15 Dec, 2011 [facility] [address] [id number] [address] [place] [address], [place] [address] 10 Dec, 2011 [facility] [address] [id number] [address] [place] [address], [place] [address] Dec, [facility] [address] [id number] [address] [place] [address], [place] [address] Dec, [facility] [address] [id number] [address] [place] [address], [place] [address] Dec, [facility] [address] [id number] [address] [place] [address], [place] [address] Dec, [facility] [address] [id number] [address] [place] [address], [place] [address] Dec, [facility] [address] [id number] [address] [place] [address], [place] [address] Nov, [facility] [address] [id number] [address] [place] [address], [place] [address] 06 Oct, 2011 [facility] [address] [id number] [address] [place] [address], [place] [address] 05 Aug, 2011 [facility] [address] [id number] [address] [place] [address], [place] [address] 22 Jul, 2011 [facility] [address] [id number] [address] [place] [address], [place] [address] 19 Jul, 2011 [facility] [address] [id number] [address] [place] [address], [place] [address] 16 Jul, 2011 [facility] [address] [id number] [address] [place] [address], [place] [address] 14 Jul, 2011 [facility] [address] [id number] [address] [place] [address], [place] [address] 07 Jul, 2011 [facility] [address] [id number] [address] [place] [address], [place] [address] 02 Jul, 2011 [facility] [address] [id number] [address] [place] [address], [place] [address] 21 Jul, 2011 [facility] [address] [id number] [address] [place] [address], [place] [address] 15 Jul, 2011 [facility] [address] [id number] [address] [place] [address], [place] [address] 13 Jul, 2011 [facility] [address] [id number] [address] [place] [address], [place] [address] 03 Jul, 2011 [facility] [address] [id number] [address] [place] [address], [place] [address] 02 Jul, 2011 [facility] [address] [id number] [address] [place] [address], [place] [address] 24 Jun, 2011 [facility] [address] [id number] [address] [place] [address], [place] [address] Jun, [facility] [address] [id number] [address] [place] [address], [place] [address] 13 Jun, 2011 [facility] [address] [id number] [address] [place] [address], [place] [address] Jun, [facility] [address] [id number] [address] [place] [address], [place] [address] 06 Jun, 2011 [facility] [address] [id number] [address] [place] [address], [place] [address] Jun, [facility] [address] [id number] [address] [place] [address], [place] [address] Jun, [facility] [address] [id number] [address] [place] [address], [place] [address] May, [facility] [address] [id number] [address] [place] [address], [place] [address] May, [facility] [address] [id number] [address] [place] [address], [place] [address] May, [facility] [address] [id number] [address] [place] [address], [place] [address] May, [facility] [address] [id number] [address] [place] [address], [place] [address] May, [facility] [address] [id number] [address] [place] [address], [place] [address] May, [facility] [address] [id number] [address] [place] [address], [place] [address] May, [facility] [address] [id number] [address] [place] [address], [place] [address] May, [facility] [address] [id number] [address] [place] [address], [place] [address] 06 May, 2011 [facility] [address] [id number] [address] [place] [address], [place] [address] May, [facility] [address] [id number] [address] [place] [address], [place] [address] Apr, [facility] [address] [id number] [address] [place] [id number] Apr, [facility] [address] [id number] [address] [place] [phone] Apr, [facility] [address] [id number] [address] [place] [phone] Apr, [facility] [address] [id number] [address] [place] [id number] Mar, [facility] [address] [facility] [id number] [address] [place] [phone] Mar, [facility] [address] [id number] [address] [place] [id number] Mar, [facility] [address] [facility] [id number] [address] [place] [id number] Mar, IMMUNIZATIONS No Known Immunizations SOCIAL HISTORY [...]
--- OUTSIDE RECORDS SUMMARY | 2020-01-03 18:13 | XMS REPORT ---
Author Author Pattie ARAYA Organization [facility] Address [address] [place] [address] Care Team Providers Care Geological Scout Name Role Phone BRODY ARAYA Unavailable PROBLEMS Type Condition ICD9-CM Code RRO32-FP Code Onset Dates Condition S tatus SNOMED Code Problem Major depressive disorder in partial remission F32 .4 Active 17051914 Problem FRANCIS (generalized anxiety disorder) F41.1 Active 20406554 Problem Conversion disorder (or hysterical neurosis, conversion ty pe) F44.9 Active 95594224 Problem Thoracic disc herniation M51.24 Activ e 403978773 Problem Slow transit constipation K59.01 Acti ve 28492206 Problem Constipation, unspecified constipation type K59.00 Active 55624993 Problem Mild episode of recurrent major depressive disorder F33.0 Active 685356151 Problem High blood pressure I10 Active 54038458 Problem Paroxysmal tachycardia I47.9 Active 61059209 Problem Nonadherence to medication Z91.14 Act vivian 483132866 Problem Seizure disorder G40.909 Active 128 089132 Problem Restless leg syndrome G25.81 Active 24876283 Problem Other chronic pain G89.29 Active 8 7120593 Problem Mild intermittent asthma without complication J45. 20 Active 514520347 Problem Obesity (BMI 30.0-34.9) E66.9 Active [id number] ALLERGIES No Information ENCOUNTERS Encounter Location Date Diagnosis [facility] [address] [facility] [id number] [address] [place] [address] Aug, [facility] [address] [facility] [id number] [address] [place] [address] Aug, [facility] [address] [facility] [id number] [address] [place] [address] Aug, Other chronic pain G89.29 an d Back muscle spasm M62.830 [facility] [address] [id number] [address] [place] [address] Aug, [facility] [address] [id number] [address] [place] [address] Aug, Major depressive disorder in partial remission F32.4 ; FRANCIS (generalized anxiety disorder) F41.1 ; Restless leg syndrome G25.81 and Nonadherence to medication Z91.14 [facility] [address] [id number] [address] [place] [address] Aug, [facility] [address] [id number] [address] [place] [address] Jul, [facility] [address] [id number] [address] [place] [address] Jul, [facility] [address] [id number] [address] [place] [address] Jul, Major depressive disorder in partial remission F32.4 ; FRANCIS (generalized anxiety disorder) F41.1 ; Restless leg syndrome G25.81 and High blood pressure I10 [facility] [address] [id number] [address] [place] [address] Jul, [facility] [address] [id number] [address] [place] [address] Jul, [facility] [address] [id number] [address] [place] [address] Jun, [facility] [address] [id number] [address] [place] [address] May, [facility] [address] [id number] [address] [place] [address] Apr, [facility] [address] [id number] [address] [place] [address] Apr, [facility] [address] [id number] [address] [place] [address] Mar, [facility] [address] [id number] [address] [place] [address] Mar, Major depressive disorder in partial remission F32.4 ; FRANCIS (generalized anxiety disorder) F41.1 and Restless leg syndrome G25.81 [facility] [address] [id number] [address] [place] [address] Mar, Obesity (BMI 30.0-34.9) E66. 9 [facility] [address] [id number] [address] [place] [address] Jan, [facility] [address] [id number] [address] [place] [address] Jan, Burn T30.0 [facility] [address] [id number] [address] [place] [address] Dec, [facility] [address] [id number] [address] [place] [address] Nov, [facility] [address] [id number] [address] [place] [address] Nov, [facility] [id number] [place] [address] [id number] Nov, Dental examination Z01.20 [facility] [address] [id number] [address] [place] [address] September, [facility] [address] [id number] [address] [place] [address] [id number] September, Decay, teeth K02.9 and Denta l examination Z01.20 [facility] [address] [id number] [address] [place] [address] [id number] September, Dental examination Z01.20 [facility] [address] [facility] [id number] [address] [place] [address] September, FRANCIS (generalized anxiety dis order) F41.1 ; Major depressive disorder in partial remission F32.4 and Restless leg syndrome G25.81 [facility] [address] [id number] [address] [place] [address] Aug, [facility] [address] [facility] [id number] [address] [place] [address] Jul, [facility] [address] [facility] [id number] [address] [place] [address] Jul, Encounter to discuss test re sults Z71.2 [facility] [address] [facility] [id number] [address] [place] [address] Jul, Pelvic pain R10.2 ; Screenin g for breast cancer Z12.31 and Obesity (BMI 30.0-34.9) E66.9 [facility] [address] [facility] [id number] [address] [place] [address] Jul, Mild intermittent asthma wit hout complication J45.20 [facility] [address] [place] [id number] [address] [place] [address] Jul, Major depressive disorder in partial remission F32.4 and FRANCIS (generalized anxiety disorder) F41.1 [facility] [address] [facility] [id number] [address] [place] [address] Jul, [facility] [address] [facility] [id number] [address] [place] [address] Jun, [facility] [address] [facility] [id number] [address] [place] [address] May, Major depressive disorder in partial remission F32.4 ; FRANCIS (generalized anxiety disorder) F41.1 and Restless leg syndrome G25.81 [facility] [address] [facility] [id number] [address] [place] [address] Apr, [facility] [address] [facility] [id number] [address] [place] [address] Mar, [facility] [address] [facility] [id number] [address] [place] [address] Jan, Pain in thoracic spine M54.6 and Other chronic pain G89.29 [facility] [address] [id number] [address] [place] [address] 14 Jan, 2018 [facility] [address] [id number] [address] [place] [address] Jan, Mild episode of recurrent ma saray depressive disorder F33.0 ; FRANCIS (generalized anxiety disorder) F41.1 and Restless leg syndrome G25.81 [facility] [address] [id number] [address] [place] [address] Dec, [facility] [address] [id number] [address] [place] [address] Dec, Hospital discharge follow-up Z09 [facility] [address] [id number] [address] [place] [address] Nov, [facility] [address] [id number] [address] [place] [address] Nov, [facility] [address] [id number] [address] [place] [address] September, [facility] [address] [id number] [address] [place] [address] September, [facility] [address] [facility] [id number] [address] [place] [address] September, Major depressive disorder in partial remission F32.4 ; FRANCIS (generalized anxiety disorder) F41.1 and Restless leg syndrome G25.81 [facility] [address] [id number] [address] [place] [address] September, [facility] [address] [id number] [address] [place] [address] Jul, [facility] [address] [facility] [id number] [address] [place] [address] Jul, Dorsalgia, unspecified M54.9 [facility] [address] [id number] [address] [place] [address] Jul, Mild episode of recurrent ma saray depressive disorder F33.0 and FRANCIS (generalized anxiety disorder) F41.1 [facility] [address] [facility] [id number] [address] [place] [address] May, [facility] [address] [facility] [id number] [address] [place] [address] May, Dysuria R30.0 and Acute cyst itis with hematuria N30.01 [facility] [address] [facility] [id number] [address] [place] [address] Apr, [facility] [address] [id number] [address] [place] [address] Apr, Major depressive disorder in partial remission F32.4 and FRANCIS (generalized anxiety disorder) F41.1 [facility] [address] [facility] [id number] [address] [place] [address] Mar, Paroxysmal tachycardia I47.9 [facility] [address] [facility] [id number] [address] [place] [address] Mar, Paroxysmal tachycardia I47.9 and Pain of left lower extremity M79.605 [facility] [address] [facility] [id number] [address] [place] [address] Mar, FRANCIS (generalized anxiety dis order) F41.1 and Major depressive disorder in partial remission F32.4 [facility] [address] [facility] [id number] [address] [place] [address] Jan, [facility] [address] [facility] [id number] [address] [place] [address] Jan, [facility] [address] [facility] [id number] [address] [place] [address] Jan, [facility] [address] [facility] [id number] [address] [place] [address] Dec, Constipation, unspecified co nstipation type K59.00 [facility] [address] [facility] [id number] [address] [place] [address] Dec, [facility] [address] [place] [id number] [address] [place] [address] Nov, [facility] [address] [place] [id number] [place] [address] Nov, Major depressive disorder in partial remission F32.4 and FRANCIS (generalized anxiety disorder) F41.1 [facility] [address] [facility] [id number] [address] [place] [address] Oct, Abdominal pain R10.9 and Slo w transit constipation K59.01 [facility] [address] [facility] [id number] [address] [place] [address] Aug, Major depressive disorder in partial remission F32.4 ; FRANCIS (generalized anxiety disorder) F41.1 ; Conversion disorder (or hysterical neurosis, conversion type) F44.9 ; Dorsalgia, unspecified M54.9 and Long-term use of high-risk medication Z79.899 [facility] [address] [place] [id number] [place] [address] Aug, [facility] [address] [place] [id number] [address] [place] [address] Jul, Paroxysmal tachycardia I47.9 [facility] [address] [place] [id number] [place] [address] Jul, Paroxysmal tachycardia I47.9 [facility] [address] [place] [id number] [address] [place] [address] Jun, [facility] [address] [place] [id number] [address] [place] [address] Jun, Major depressive disorder in partial remission F32.4 ; FRANCIS (generalized anxiety disorder) F41.1 and Conversion disorder (or hysterical neurosis, conversion type) F44.9 [facility] [address] [facility] [id number] [address] [place] [address] May, Pelvic pain R10.2 [facility] [address] [facility] [id number] [address] [place] [address] Apr, Gastroenteritis K52.9 [facility] [address] [id number] [address] [place] [address] 17 Apr, 2016 Blood in urine R31.9 and Acu te cystitis with hematuria N30.01 [facility] [address] [id number] [address] [place] [address] Apr, Major depressive disorder in partial remission F32.4 ; FRANCIS (generalized anxiety disorder) F41.1 and Conversion disorder (or hysterical neurosis, conversion type) F44.9 [facility] [address] [id number] [address] [place] [address] Apr, [facility] [address] [id number] [address] [place] [address] Apr, Abnormal mammogram R92.8 [facility] [address] [id number] [address] [place] [address] Mar, [facility] [address] [id number] [address] [place] [address] Mar, Gastroenteritis K52.9 and Se izure disorder G40.909 [facility] [address] [id number] [address] [place] [address] Dec, [facility] [address] [id number] [address] [place] [address] Dec, Other headache syndrome G44. 89 [facility] [address] [id number] [address] [place] [address] Dec, [facility] [address] [id number] [address] [place] [address] Dec, Thoracic disc herniation M51 .24 [facility] [address] [id number] [address] [place] [address] Dec, [facility] [address] [id number] [address] [place] [address] Nov, Major depressive disorder in partial remission F32.4 and FRANCIS (generalized anxiety disorder) F41.1 [facility] [address] [id number] [address] [place] [address], [place] [address] Nov, [facility] [address] [id number] [address] [place] [address] Nov, Dorsalgia, unspecified M54.9 [facility] [address] [id number] [address] [place] [address] Oct, [facility] [address] [id number] [address] [place] [address] September, [facility] [address] [id number] [address] [place] [address] Aug, [facility] [address] [id number] [address] [place] [address] Aug, Major depressive disorder in partial remission F32.4 and FRANCIS (generalized anxiety disorder) F41.1 [facility] [address] [id number] [address] [place] [address] Aug, [facility] [address] [id number] [address] [place] [address] Jul, Abnormal mammogram R92.8 [facility] [address] [id number] [address] [place] [address] Jul, [facility] [address] [id number] [address] [place] [address] Jul, [facility] [address] [id number] [address] [place] [address] Jul, [facility] [address] [id number] [address] [place] [address] Jul, [facility] [address] [id number] [address] [place] [address] Jul, [facility] [address] [id number] [address] [place] [address] Jul, [facility] [address] [id number] [address] [place] [address] Jun, Major depressive disorder in partial remission F32.4 and FRANCIS (generalized anxiety disorder) F41.1 [facility] [address] [id number] [address] [place] [address] Jun, [facility] [address] [id number] [address] [place] [address] May, [facility] [address] [id number] [address] [place] [address] Apr, [facility] [address] [id number] [address] [place] [address] Mar, Major depressive disorder, r ecurrent episode, moderate F33.1 ; PTSD (post-traumatic stress disorder) F43.10 and FRANCIS (generalized anxiety disorder) F41.1 [facility] [address] [id number] [address] [place] [address] Mar, [facility] [address] [id number] [address] [place] [address] Mar, [facility] [address] [id number] [address] [place] [address] Mar, [facility] [address] [id number] [address] [place] [address] Mar, [facility] [address] [id number] [address] [place] [address] 23 Jan, 2015 [facility] [address] [id number] [address] [place] [address] 15 Jan, 2015 [facility] [address] [id number] [address] [place] [address] 15 Jan, 2015 [facility] [address] [id number] [address] [place] [address] 14 Jan, 2015 Thoracic disc herniation 722 .11 [facility] [address] [id number] [address] [place] [address] Dec, [facility] [address] [id number] [address] [place] [address] Dec, [facility] [address] [id number] [address] [place] [address] Dec, [facility] [address] [id number] [address] [place] [address] Nov, [facility] [address] [id number] [address] [place] [address] Nov, Generalized anxiety disorder 300.02 ; Posttraumatic stress disorder 309.81 and Major depressive disorder, recurrent episode, moderate 296.32 [facility] [address] [id number] [address] [place] [address] Nov, [facility] [address] [id number] [address] [place] [address] Nov, [facility] [address] [id number] [address] [place] [address] Oct, [facility] [address] [id number] [address] [place] [address] Oct, [facility] [address] [id number] [address] [place] [address] Oct, [facility] [address] [id number] [address] [place] [address] September, [facility] [address] [id number] [address] [place] [address] September, [facility] [address] [id number] [address] [place] [address] Aug, [facility] [address] [id number] [address] [place] [address] Aug, [facility] [address] [id number] [address] [place] [address] Jul, [facility] [address] [id number] [address] [place] [address] 25 Jul, 2014 [facility] [address] [id number] [address] [place] [address], [place] [address] 17 Jul, 2014 [facility] [address] [id number] [address] [place] [address], [place] [address] 17 Jul, 2014 [facility] [address] [id number] [address] [place] [address], [place] [address] 16 Jul, 2014 [facility] [address] [id number] [address] [place] [address], [place] [address] 16 Jul, 2014 [facility] [address] [id number] [address] [place] [address], [place] [address] Jul, [facility] [address] [id number] [address] [place] [address], [place] [address] 19 Jul, 2014 [facility] [address] [id number] [address] [place] [address], [place] [address] Jul, [facility] [address] [id number] [address] [place] [address], [place] [address] Jul, [facility] [address] [id number] [address] [place] [address], [place] [address] Jun, [facility] [address] [id number] [address] [place] [address], [place] [address] Jun, [facility] [address] [id number] [address] [place] [address], [place] [address] 05 Jun, 2014 [facility] [address] [id number] [address] [place] [address], [place] [address] May, [facility] [address] [id number] [address] [place] [address], [place] [address] Apr, [facility] [address] [id number] [address] [place] [address], [place] [address] Apr, [facility] [address] [id number] [address] [place] [id number] Apr, [facility] [address] [id number] [address] [place] [address], [place] [address] Apr, [facility] [address] [id number] [address] [place] [address], [place] [address] Apr, [facility] [address] [id number] [address] [place] [address], [place] [address] Apr, [facility] [address] [id number] [address] [place] [address], [place] [address] Apr, [facility] [address] [id number] [address] [place] [address], [place] [address] Apr, [facility] [address] [id number] [address] [place] [address], [place] [address] Mar, [facility] [address] [id number] [address] [place] [address], [place] [address] Mar, [facility] [address] [id number] [address] [place] [address], [place] [address] Mar, [facility] [address] [id number] [address] [place] [address], [place] [address] Mar, [facility] [address] [id number] [address] [place] [address], [place] [address] Mar, [facility] [address] [id number] [address] [place] [address], [place] [address] Mar, [facility] [address] [id number] [address] [place] [address], [place] [address] Mar, [facility] [address] [id number] [address] [place] [address], [place] [address] Mar, [facility] [address] [id number] [address] [place] [address], [place] [address] Mar, [facility] [address] [id number] [address] [place] [address], [place] [address] Mar, [facility] [address] [id number] [address] [place] [address], [place] [address] 17 Mar, 2013 [facility] [address] [id number] [address] [place] [address], [place] [address] 14 Mar, 2013 [facility] [address] [id number] [address] [place] [address], [place] [address] 14 Mar, 2013 [facility] [address] [id number] [address] [place] [address], [place] [address] 07 Mar, 2013 [facility] [address] [id number] [address] [place] [address], [place] [address] 07 Mar, 2013 [facility] [address] [id number] [address] [place] [address], [place] [address] 06 Mar, 2013 [facility] [address] [id number] [address] [place] [address], [place] [address] 06 Mar, 2013 [facility] [address] [id number] [address] [place] [address], [place] [address] 19 Sep, 2013 [facility] [address] [id number] [address] [place] [address], [place] [address] 19 Sep, 2013 [facility] [address] [id number] [address] [place] [address], [place] [address] 09 Sep, 2013 [facility] [address] [id number] [address] [place] [address], [place] [address] 09 Sep, 2013 [facility] [address] [id number] [address] [place] [address] 05 Sep, 2013 [facility] [address] [id number] [address] [place] [address] 05 Sep, 2013 [facility] [address] [id number] [address] [place] [address], [place] [address] 05 Sep, 2013 [facility] [address] [id number] [address] [place] [address], [place] [address] 05 Sep, 2013 [facility] [address] [id number] [address] [place] [address], [place] [address] 03 Sep, 2013 [facility] [address] [id number] [address] [place] [address], [place] [address] Jan, [facility] [address] [id number] [address] [place] [address], [place] [address] Jan, [facility] [address] [id number] [address] [place] [address], [place] [address] Jan, [facility] [address] [id number] [address] [place] [address], [place] [address] Jan, [facility] [address] [id number] [address] [place] [address], [place] [address] Dec, [facility] [address] [id number] [address] [place] [address], [place] [address] Dec, [facility] [address] [id number] [address] [place] [address], [place] [address] Dec, [facility] [address] [id number] [address] [place] [address], [place] [address] Dec, [facility] [address] [id number] [address] [place] [address], [place] [address] Dec, [facility] [address] [id number] [address] [place] [address], [place] [address] Dec, [facility] [place] [id number] Dec, [facility] [place] [id number] Dec, [facility] [address] [id number] [address] [place] [address], [place] [address] Dec, [facility] [address] [id number] [address] [place] [address], [place] [address] Dec, [facility] [address] [id number] [address] [place] [address], [place] [address] Dec, [facility] [address] [id number] [address] [place] [address], [place] [address] Dec, [facility] [address] [id number] [address] [place] [address], [place] [address] Nov, [facility] [address] [id number] [facility] [place] [address] Nov, [facility] [address] [id number] [facility] [place] [address] Nov, [facility] [address] [id number] [facility] [place] [address] Nov, [facility] [address] [id number] [facility] [place] [address] Nov, [facility] [address] [id number] [address] [place] [address], [place] [address] Nov, [facility] [address] [id number] [address] [place] [address], [place] [address] Nov, [facility] [address] [id number] [address] [place] [address], [place] [address] Nov, [facility] [address] [id number] [address] [place] [address], [place] [address] Nov, [facility] [address] [id number] [address] [place] [address], [place] [address] Nov, [facility] [address] [id number] [address] [place] [address], [place] [address] Nov, [facility] [address] [id number] [address] [place] [address], [place] [address] Nov, [facility] [address] [id number] [address] [place] [address], [place] [address] Nov, [facility] [address] [id number] [address] [place] [address], [place] [address] Oct, [facility] [address] [id number] [address] [place] [address], [place] [address] Oct, [facility] [address] [id number] [address] [place] [address], [place] [address] Oct, [facility] [address] [id number] [facility] [place] [address] Oct, [facility] [address] [id number] [facility] [place] [address] Oct, [facility] [address] [id number] [facility] [place] [address] Oct, [facility] [address] [id number] [address] [place] [address], [place] [address] Oct, [facility] [address] [id number] [address] [place] [address], [place] [address] Oct, [facility] [address] [id number] [address] [place] [address], [place] [address] Oct, [facility] [address] [id number] [address] [place] [address], [place] [address] Oct, [facility] [address] [id number] [address] [place] [address], [place] [address] Oct, [facility] [address] [id number] [address] [place] [address], [place] [address] Oct, [facility] [address] [id number] [address] [place] [address], [place] [address] September, [facility] [address] [id number] [address] [place] [address], [place] [address] September, [facility] [address] [id number] [address] [place] [address], [place] [address] September, [facility] [address] [id number] [address] [place] [address], [place] [address] September, [facility] [address] [id number] [address] [place] [address], [place] [address] Aug, [facility] [address] [id number] [address] [place] [address], [place] [address] Aug, [facility] [address] [id number] [address] [place] [address], [place] [address] Aug, [facility] [address] [id number] [facility] [place] [address] Aug, [facility] [address] [id number] [address] [place] [address], [place] [address] Aug, [facility] [address] [id number] [address] [place] [address], [place] [address] Aug, [facility] [address] [id number] [address] [place] [address], [place] [address] Aug, [facility] [address] [id number] [address] [place] [address], [place] [address] Jul, [facility] [address] [id number] [address] [place] [address], [place] [address] Jul, [facility] [address] [id number] [address] [place] [address], [place] [address] Jul, [facility] [address] [id number] [address] [place] [address], [place] [address] Jul, [facility] [address] [id number] [address] [place] [address], [place] [address] Jul, [facility] [address] [id number] [address] [place] [address], [place] [address] Jul, [facility] [address] [id number] [address] [place] [address], [place] [address] Jul, [facility] [address] [id number] [address] [place] [address], [place] [address] Jul, [facility] [address] [id number] [address] [place] [address], [place] [address] Jul, [facility] [address] [id number] [address] [place] [address], [place] [address] Jul, [facility] [address] [id number] [address] [place] [address], [place] [address] Jul, [facility] [address] [id number] [address] [place] [address], [place] [address] 18 Jul, 2013 [facility] [address] [id number] [address] [place] [address], [place] [address] 14 Jul, 2013 [facility] [address] [id number] [address] [place] [address], [place] [address] 14 Jul, 2013 [facility] [address] [id number] [address] [place] [address], [place] [address] Jul, [facility] [address] [id number] [address] [place] [address], [place] [address] Jul, [facility] [address] [id number] [address] [place] [address], [place] [address] Jul, [facility] [address] [id number] [address] [place] [address], [place] [address] Jul, [facility] [address] [id number] [address] [place] [address], [place] [address] Jun, [facility] [address] [id number] [address] [place] [address], [place] [address] Jun, [facility] [address] [id number] [address] [place] [address], [place] [address] 15 Jun, 2013 [facility] [address] [id number] [address] [place] [address], [place] [address] 15 Jun, 2013 [facility] [address] [id number] [address] [place] [address], [place] [address] Jun, [facility] [address] [id number] [address] [place] [address], [place] [address] Jun, [facility] [address] [id number] [address] [place] [address], [place] [address] 14 Jun, 2013 [facility] [address] [id number] [address] [place] [address], [place] [address] 14 Jun, 2013 [facility] [address] [id number] [address] [place] [address], [place] [address] 14 Jun, 2013 [facility] [address] [id number] [address] [place] [address], [place] [address] 14 Jun, 2013 [facility] [address] [id number] [address] [place] [address], [place] [address] 27 May, 2013 [facility] [address] [id number] [address] [place] [address], [place] [address] 27 May, 2013 [facility] [address] [id number] [address] [place] [address], [place] [address] 26 May, 2013 [facility] [address] [id number] [address] [place] [address], [place] [address] 19 May, 2013 [facility] [address] [id number] [address] [place] [address], [place] [address] 19 May, 2013 [facility] [address] [id number] [address] [place] [address], [place] [address] 16 May, 2013 [facility] [address] [id number] [address] [place] [address], [place] [address] 16 May, 2013 [facility] [address] [id number] [address] [place] [address], [place] [address] 16 May, 2013 [facility] [address] [id number] [address] [place] [address], [place] [address] 16 May, 2013 [facility] [address] [id number] [address] [place] [address], [place] [address] 13 May, 2013 [facility] [address] [id number] [address] [place] [address], [place] [address] 13 May, 2013 [facility] [address] [id number] [address] [place] [address], [place] [address] 11 May, 2013 [facility] [address] [id number] [address] [place] [address], [place] [address] 20 Apr, 2013 [facility] [address] [id number] [address] [place] [address], [place] [address] 18 Apr, 2013 [facility] [address] [id number] [address] [place] [address], [place] [address] 18 Apr, 2013 [facility] [address] [id number] [address] [place] [address], [place] [address] Apr, [facility] [address] [id number] [address] [place] [address], [place] [address] 13 Apr, 2013 [facility] [address] [id number] [address] [place] [address], [place] [address] 08 Apr, 2013 [facility] [address] [id number] [address] [place] [address], [place] [address] 08 Apr, 2013 [facility] [address] [id number] [address] [place] [address], [place] [address] Apr, [facility] [address] [id number] [address] [place] [address], [place] [address] Apr, [facility] [address] [id number] [address] [place] [address], [place] [address] Apr, [facility] [address] [id number] [address] [place] [address], [place] [address] Apr, [facility] [address] [id number] [address] [place] [address], [place] [address] Mar, [facility] [address] [id number] [address] [place] [address], [place] [address] Mar, [facility] [address] [id number] [address] [place] [address], [place] [address] Mar, [facility] [address] [id number] [address] [place] [address], [place] [address] Mar, [facility] [address] [id number] [address] [place] [address], [place] [address] Mar, [facility] [address] [id number] [address] [place] [address], [place] [address] Mar, [facility] [address] [id number] [address] [place] [address], [place] [address] Mar, [facility] [address] [id number] [address] [place] [address], [place] [address] Mar, [facility] [address] [id number] [address] [place] [address], [place] [address] Mar, [facility] [address] [id number] [address] [place] [address], [place] [address] Mar, [facility] [address] [id number] [address] [place] [address], [place] [address] Mar, [facility] [address] [id number] [address] [place] [address], [place] [address] Mar, [facility] [address] [id number] [address] [place] [address], [place] [address] 30 Jan, 2013 [facility] [address] [id number] [address] [place] [address], [place] [address] Jan, [facility] [address] [id number] [address] [place] [address], [place] [address] Jan, [facility] [address] [id number] [address] [place] [address], [place] [address] Jan, [facility] [address] [id number] [address] [place] [address] Dec, [facility] [address] [id number] [address] [place] [address], [place] [address] Dec, [facility] [address] [id number] [address] [place] [address], [place] [address] Dec, [facility] [address] [id number] [address] [place] [address], [place] [address] Dec, [facility] [address] [id number] [address] [place] [address], [place] [address] Dec, [facility] [address] [id number] [address] [place] [address], [place] [address] Dec, [facility] [address] [id number] [address] [place] [address] Dec, [facility] [address] [id number] [address] [place] [address], [place] [address] Dec, [facility] [address] [id number] [address] [place] [address], [place] [address] Dec, [facility] [address] [id number] [address] [place] [address], [place] [address] Nov, [facility] [address] [id number] [address] [place] [address], [place] [address] Nov, [facility] [address] [id number] [address] [place] [address], [place] [address] Nov, [facility] [address] [id number] [address] [place] [address], [place] [address] Nov, [facility] [address] [id number] [address] [place] [address], [place] [address] Nov, [facility] [address] [id number] [address] [place] [address], [place] [address] Nov, [facility] [address] [id number] [address] [place] [address], [place] [address] Nov, [facility] [address] [id number] [address] [place] [address], [place] [address] Nov, [facility] [address] [id number] [address] [place] [address], [place] [address] Oct, [facility] [address] [id number] [address] [place] [address], [place] [address] Oct, [facility] [address] [id number] [address] [place] [address], [place] [address] Oct, [facility] [address] [id number] [address] [place] [address], [place] [address] Oct, [facility] [address] [id number] [address] [place] [address], [place] [address] Oct, [facility] [address] [id number] [address] [place] [address], [place] [address] 21 Oct, 2012 [facility] [address] [id number] [address] [place] [address], [place] [address] 20 Oct, 2012 [facility] [address] [id number] [address] [place] [address], [place] [address] 20 Oct, 2012 [facility] [address] [id number] [address] [place] [address], [place] [address] 19 Oct, 2012 [facility] [address] [id number] [address] [place] [address], [place] [address] 18 Oct, 2012 [facility] [address] [id number] [address] [place] [address], [place] [address] 17 Oct, 2012 [facility] [address] [id number] [address] [place] [address], [place] [address] 14 Oct, 2012 [facility] [address] [id number] [address] [place] [address], [place] [address] 07 Oct, 2012 [facility] [address] [id number] [address] [place] [address], [place] [address] 30 Sep, 2012 [facility] [address] [id number] [address] [place] [address], [place] [address] September, [facility] [address] [id number] [address] [place] [address], [place] [address] September, [facility] [address] [id number] [address] [place] [address], [place] [address] 25 Aug, 2012 [facility] [address] [id number] [address] [place] [address], [place] [address] 24 Aug, 2012 [facility] [address] [id number] [address] [place] [address], [place] [address] 18 Aug, 2012 [facility] [address] [id number] [address] [place] [address], [place] [address] 18 Aug, 2012 [facility] [address] [id number] [address] [place] [address] [address] Aug, [facility] [address] [id number] [address] [place] [address], [place] [address] Aug, [facility] [address] [id number] [address] [place] [address], [place] [address] Aug, [facility] [address] [id number] [address] [place] [address], [place] [address] Jul, [facility] [address] [id number] [address] [place] [address], [place] [address] Jul, [facility] [address] [id number] [address] [place] [address], [place] [address] Jul, [facility] [address] [id number] [address] [place] [address], [place] [address] Jul, [facility] [address] [id number] [address] [place] [address], [place] [address] Jul, [facility] [address] [id number] [address] [place] [address], [place] [address] Jul, [facility] [address] [id number] [address] [place] [address], [place] [address] Jul, [facility] [address] [id number] [address] [place] [address], [place] [address] Jul, [facility] [address] [id number] [address] [place] [address], [place] [address] Jul, [facility] [address] [id number] [address] [place] [address], [place] [address] Jul, [facility] [address] [id number] [address] [place] [address], [place] [address] Jul, [facility] [address] [id number] [address] [place] [address], [place] [address] 06 Jul, 2012 [facility] [address] [id number] [address] [place] [address], [place] [address] Jul, [facility] [address] [id number] [address] [place] [address], [place] [address] 24 Jun, 2012 [facility] [address] [id number] [address] [place] [address], [place] [address] Jun, [facility] [address] [id number] [address] [place] [address], [place] [address] 19 Jun, 2012 [facility] [address] [id number] [address] [place] [address], [place] [address] 17 Jun, 2012 [facility] [address] [id number] [address] [place] [address], [place] [address] 15 Jun, 2012 [facility] [address] [id number] [address] [place] [address], [place] [address] 14 Jun, 2012 [facility] [address] [id number] [address] [place] [address], [place] [address] 08 Jun, 2012 [facility] [address] [id number] [address] [place] [address], [place] [address] 28 May, 2012 [facility] [address] [id number] [address] [place] [address], [place] [address] May, [facility] [address] [id number] [address] [place] [address], [place] [address] May, [facility] [address] [id number] [address] [place] [address], [place] [address] May, [facility] [address] [id number] [address] [place] [address], [place] [address] May, [facility] [address] [id number] [address] [place] [address], [place] [address] 24 May, 2012 [facility] [address] [id number] [address] [place] [address], [place] [address] May, [facility] [address] [id number] [address] [place] [address], [place] [address] May, [facility] [address] [id number] [address] [place], [place] [address] [address] May, [facility] [address] [id number] [address] [place] [address], [place] [address] May, [facility] [address] [id number] [address] [place] [address], [place] [address] Apr, [facility] [address] [id number] [address] [place] [address], [place] [address] Apr, [facility] [address] [id number] [address] [place] [address], [place] [address] Apr, [facility] [address] [id number] [address] [place] [address], [place] [address] Apr, [facility] [address] [id number] [address] [place] [address], [place] [address] Apr, [facility] [address] [id number] [address] [place] [address], [place] [address] Apr, [facility] [address] [id number] [address] [place] [address], [place] [address] Apr, [facility] [address] [id number] [address] [place] [address], [place] [address] Apr, [facility] [address] [id number] [address] [place] [address], [place] [address] Apr, [facility] [address] [id number] [address] [place] [address], [place] [address] Apr, [facility] [address] [id number] [address] [place] [address] Apr, [facility] [address] [id number] [address] [place] [address], [place] [address] Apr, [facility] [address] [id number] [address] [place] [address], [place] [address] Mar, [facility] [address] [id number] [address] [place] [address], [place] [address] Mar, [facility] [address] [id number] [address] [place] [address], [place] [address] 30 Mar, 2011 [facility] [address] [id number] [address] [place] [address], [place] [address] 30 Mar, 2011 [facility] [address] [id number] [address] [place] [address], [place] [address] 30 Mar, 2011 [facility] [address] [id number] [address] [place] [address], [place] [address] 30 Mar, 2011 [facility] [address] [id number] [address] [place] [address], [place] [address] Mar, 2011 [facility] [address] [id number] [address] [place] [address], [place] [address] Mar, 2011 [facility] [address] [id number] [address] [place] [address], [place] [address] Mar, 2011 [facility] [address] [id number] [address] [place] [address], [place] [address] Mar, 2011 [facility] [address] [id number] [address] [place] [address] Mar, 2011 [facility] [address] [id number] [address] [place] [address], [place] [address] Mar, 2011 [facility] [address] [id number] [address] [place] [address] Mar, [facility] [address] [id number] [address] [place] [address], [place] [address] Mar, [facility] [address] [id number] [address] [place] [address] Mar, [facility] [address] [id number] [address] [place] [address] Mar, [facility] [address] [id number] [address] [place] [address] Jan, 2011 [facility] [address] [id number] [address] [place] [address] 24 Sep, 2011 [facility] [address] [id number] [address] [place] [address], [place] [address] 22 Jan, 2011 [facility] [address] [id number] [address] [place] [address], [place] [address] 22 Jan, 2012 [facility] [address] [id number] [address] [place] [address], [place] [address] 21 Jan, 2012 [facility] [address] [id number] [address] [place] [address], [place] [address] 18 Jan, 2012 [facility] [address] [id number] [address] [place] [address], [place] [address] 14 Jan, 2012 [facility] [address] [id number] [address] [place] [address], [place] [address] 07 Jan, 2012 [facility] [address] [id number] [address] [place] [address], [place] [address] 15 Dec, 2011 [facility] [address] [id number] [address] [place] [address], [place] [address] Dec, [facility] [address] [id number] [address] [place] [address], [place] [address] Dec, [facility] [address] [id number] [address] [place] [address], [place] [address] Dec, [facility] [address] [id number] [address] [place] [address], [place] [address] Dec, [facility] [address] [id number] [address] [place] [address], [place] [address] Dec, [facility] [address] [id number] [address] [place] [address], [place] [address] Dec, [facility] [address] [id number] [address] [place] [address], [place] [address] Nov, [facility] [address] [id number] [address] [place] [address], [place] [address] Oct, [facility] [address] [id number] [address] [place] [address], [place] [address] 05 Aug, 2011 [facility] [address] [id number] [address] [place] [address], [place] [address] 22 Jul, 2011 [facility] [address] [id number] [address] [place] [address], [place] [address] 19 Jul, 2011 [facility] [address] [id number] [address] [place] [address], [place] [address] 16 Jul, 2011 [facility] [address] [id number] [address] [place] [address], [place] [address] 14 Jul, 2011 [facility] [address] [id number] [address] [place] [address], [place] [address] 07 Jul, 2011 [facility] [address] [id number] [address] [place] [address], [place] [address] 02 Jul, 2011 [facility] [address] [id number] [address] [place] [address], [place] [address] 21 Jul, 2011 [facility] [address] [id number] [address] [place] [address], [place] [address] 15 Jul, 2011 [facility] [address] [id number] [address] [place] [address], [place] [address] 13 Jul, 2011 [facility] [address] [id number] [address] [place] [address], [place] [address] 03 Jul, 2011 [facility] [address] [id number] [address] [place] [address], [place] [address] 02 Jul, 2011 [facility] [address] [id number] [address] [place] [address], [place] [address] 24 Jun, 2011 [facility] [address] [id number] [address] [place] [address], [place] [address] 24 Jun, 2011 [facility] [address] [id number] [address] [place] [address], [place] [address] 13 Jun, 2011 [facility] [address] [id number] [address] [place] [address], [place] [address] Jun, [facility] [address] [id number] [address] [place] [address], [place] [address] Jun, [facility] [address] [id number] [address] [place] [address], [place] [address] Jun, [facility] [address] [id number] [address] [place] [address], [place] [address] Jun, [facility] [address] [id number] [address] [place] [address], [place] [address] May, [facility] [address] [id number] [address] [place] [address], [place] [address] May, [facility] [address] [id number] [address] [place] [address], [place] [address] May, [facility] [address] [id number] [address] [place] [address], [place] [address] May, [facility] [address] [id number] [address] [place] [address], [place] [address] May, [facility] [address] [id number] [address] [place] [address], [place] [address] May, [facility] [address] [id number] [address] [place] [address], [place] [address] May, [facility] [address] [id number] [address] [place] [address], [place] [address] May, [facility] [address] [id number] [address] [place] [address], [place] [address] May, [facility] [address] [id number] [address] [place] [address], [place] [address] May, [facility] [address] [id number] [address] [place] [address], [place] [address] 15 Apr, 2011 [facility] [address] [id number] [address] [place] [address], [place] [address] 15 Apr, 2011 [facility] [address] [id number] [address] [place] [address], [place] [address] Apr, [facility] [address] [facility] [id number] [address] [place] [address] Apr, [facility] [address] [facility] [id number] [address] [place] [address] Mar, [facility] [address] [facility] [id number] [address] [place] [address] Mar, [facility] [address] [facility] [id number] [address] [place] [address] Mar, [facility] [address] [facility] [id number] [address] [place] [address] Mar, IMMUNIZATIONS No Known Immunizations SOCIAL HISTORY [...] [facility] for seizures 03/24/16 Hospitalization History [facility] for kidney stones/hypertension 0 12/2017
--- OUTSIDE RECORDS SUMMARY | 2020-01-03 18:13 | XMS REPORT ---
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 Name Role Phone BRODY ARAYA Unavailable PROBLEMS Type Condition ICD9-CM Code AXR25-YN Code Onset Dates Condition S tatus SNOMED Code Problem Major depressive disorder in partial remission F32 .4 Active 13089553 Problem FRANCIS (generalized anxiety disorder) F41.1 Active 12412039 Problem Conversion disorder (or hysterical neurosis, conversion ty pe) F44.9 Active 73626240 Problem Thoracic disc herniation M51.24 Activ e 156693005 Problem Slow transit constipation K59.01 Acti ve 41363929 Problem Constipation, unspecified constipation type K59.00 Active 94939938 Problem Mild episode of recurrent major depressive disorder F33.0 Active 028674247 Problem High blood pressure I10 Active 11341204 Problem Paroxysmal tachycardia I47.9 Active 36165608 Problem Nonadherence to medication Z91.14 Act vivian 411470931 Problem Seizure disorder G40.909 Active 128 991483 Problem Restless leg syndrome G25.81 Active 34460629 Problem Other chronic pain G89.29 Active 8 2959602 Problem Mild intermittent asthma without complication J45. 20 Active 203399923 Problem Obesity (BMI 30.0-34.9) E66.9 Active [id number] ALLERGIES No Information ENCOUNTERS Encounter Location Date Diagnosis [facility] [address] [facility] [id number] [address] [place] [address] Aug, [facility] [address] [place] [id number] [address] [place] [address] Aug, Major depressive disorder in partial remission F32.4 ; FRANCIS (generalized anxiety disorder) F41.1 ; Restless leg syndrome G25.81 and Nonadherence to medication Z91.14 [facility] [address] [facility] [id number] [address] [place] [address] Aug, [facility] [address] [id number] [address] [place] [address] Jul, [facility] [address] [id number] [address] [place] [address] Jul, [facility] [address] [id number] [address] [place] [address] Jul, Major depressive disorder in partial remission F32.4 ; FRANCIS (generalized anxiety disorder) F41.1 ; Restless leg syndrome G25.81 and High blood pressure I10 [facility] [address] [id number] [address] [place] [address] Jul, [facility] [address] [id number] [address] [place] [address] Jul, [facility] [address] [id number] [address] [place] [address] Jun, [facility] [address] [id number] [address] [place] [address] May, [facility] [address] [id number] [address] [place] [address] Apr, [facility] [address] [id number] [address] [place] [address] Apr, [facility] [address] [id number] [address] [place] [address] Mar, [facility] [address] [id number] [address] [place] [address] Mar, Major depressive disorder in partial remission F32.4 ; FRANCIS (generalized anxiety disorder) F41.1 and Restless leg syndrome G25.81 [facility] [address] [id number] [address] [place] [address] Mar, Obesity (BMI 30.0-34.9) E66. 9 [facility] [address] [id number] [address] [place] [address] Jan, [facility] [address] [facility] [id number] [address] [place] [address] Jan, Burn T30.0 [facility] [address] [id number] [address] [place] [address] Dec, [facility] [address] [facility] [id number] [address] [place] [address] Nov, [facility] [address] [facility] [id number] [address] [place] [address] Nov, [facility] [address] [id number] Nov, Dental examination Z01.20 [facility] [address] [facility] [id number] [address] [place] [address] September, [facility] [address] [id number] September, Decay, teeth K02.9 and Denta l examination Z01.20 [facility] [address] [place] [id number] September, Dental examination Z01.20 [facility] [address] [place] [id number] [address] [place] [address] September, FRANCIS (generalized anxiety dis order) F41.1 ; Major depressive disorder in partial remission F32.4 and Restless leg syndrome G25.81 [facility] [address] [place] [place] [id number] [address] [place] [address] Aug, [facility] [address] [facility] [id number] [address] [place] [address] Jul, [facility] [address] [facility] [id number] [address] [place] [address] Jul, Encounter to discuss test re sults Z71.2 [facility] [address] [place] [place] [id number] [address] [place] [address] Jul, Pelvic pain R10.2 ; Screenin g for breast cancer Z12.31 and Obesity (BMI 30.0-34.9) E66.9 [facility] [address] [id number] [address] [place] [address] Jul, Mild intermittent asthma wit hout complication J45.20 [facility] [address] [facility] [id number] [address] [place] [address] Jul, Major depressive disorder in partial remission F32.4 and FRANCIS (generalized anxiety disorder) F41.1 [facility] [address] [facility] [id number] [address] [place] [address] Jul, [place] [address] [facility] [id number] [address] [place] [address] Jun, [place] [address] [facility] [id number] [address] [place] [address] May, Major depressive disorder in partial remission F32.4 ; FRANCIS (generalized anxiety disorder) F41.1 and Restless leg syndrome G25.81 [facility] [address] [facility] [id number] [address] [place] [address] Apr, [facility] [address] [facility] [id number] [address] [place] [address] Mar, [facility] [address] [id number] [address] [place] [address] Jan, Pain in thoracic spine M54.6 and Other chronic pain G89.29 [facility] [address] [id number] [address] [place] [address] Jan, [facility] [address] [facility] [id number] [address] [place] [address] 11 Jan, 2018 Mild episode of recurrent ma saray depressive disorder F33.0 ; FRANCIS (generalized anxiety disorder) F41.1 and Restless leg syndrome G25.81 [facility] [address] [facility] [id number] [address] [place] [address] Dec, [facility] [address] [facility] [id number] [address] [place] [address] Dec, Hospital discharge follow-up Z09 [facility] [address] [facility] [id number] [address] [place] [address] Nov, [facility] [address] [facility] [id number] [address] [place] [address] Nov, [facility] [address] [facility] [id number] [address] [place] [address] September, [facility] [address] [facility] [id number] [address] [place] [address] September, [facility] [address] [facility] [id number] [address] [place] [address] September, Major depressive disorder in partial remission F32.4 ; FRANCIS (generalized anxiety disorder) F41.1 and Restless leg syndrome G25.81 [facility] [address] [facility] [id number] [address] [place] [address] September, [facility] [address] [facility] [id number] [address] [place] [address] Jul, [facility] [address] [facility] [id number] [address] [place] [address] Jul, Dorsalgia, unspecified M54.9 [facility] [address] [facility] [id number] [address] [place] [address] Jul, Mild episode of recurrent ma saray depressive disorder F33.0 and FRANCIS (generalized anxiety disorder) F41.1 [facility] [address] [facility] [id number] [address] [place] [address] May, [facility] [address] [facility] [id number] [address] [place] [address] May, Dysuria R30.0 and Acute cyst itis with hematuria N30.01 [facility] [address] [facility] [id number] [address] [place] [address] Apr, [facility] [address] [id number] [address] [place] [address] Apr, Major depressive disorder in partial remission F32.4 and FRANCIS (generalized anxiety disorder) F41.1 [facility] [address] [id number] [address] [place] [address] Mar, Paroxysmal tachycardia I47.9 [facility] [address] [id number] [address] [place] [address] Mar, Paroxysmal tachycardia I47.9 and Pain of left lower extremity M79.605 [place] [address] [id number] [address] [place] [address] Mar, FRANCIS (generalized anxiety dis order) F41.1 and Major depressive disorder in partial remission F32.4 [facility] [address] [id number] [address] [place] [address] Jan, [facility] [address] [id number] [address] [place] [address] 14 Jan, 2017 [facility] [address] [id number] [address] [place] [address] Jan, [facility] [address] [id number] [address] [place] [address] Dec, Constipation, unspecified co nstipation type K59.00 [facility] [address] [id number] [address] [place] [address] Dec, [facility] [address] [id number] [address] [place] [address] Nov, [facility] [address] [id number] [address] [place] [address] Nov, Major depressive disorder in partial remission F32.4 and FRANCIS (generalized anxiety disorder) F41.1 [facility] [address] [id number] [address] [place] [address] Oct, Abdominal pain R10.9 and Slo w transit constipation K59.01 [facility] [address] [facility] [id number] [address] [place] [address] Aug, Major depressive disorder in partial remission F32.4 ; FRANCIS (generalized anxiety disorder) F41.1 ; Conversion disorder (or hysterical neurosis, conversion type) F44.9 ; Dorsalgia, unspecified M54.9 and Long-term use of high-risk medication Z79.899 [place] [address] [facility] [id number] [address] [place] [address] Aug, [place] [address] [facility] [id number] [address] [place] [address] Jul, Paroxysmal tachycardia I47.9 [place] [address] [facility] [id number] [address] [place] [address] Jul, Paroxysmal tachycardia I47.9 [place] [address] [place] [id number] [address] [place] [address] Jun, [place] [address] [facility] [id number] [address] [place] [address] Jun, Major depressive disorder in partial remission F32.4 ; FRANCIS (generalized anxiety disorder) F41.1 and Conversion disorder (or hysterical neurosis, conversion type) F44.9 [facility] [address] [facility] [id number] [address] [place] [address] May, Pelvic pain R10.2 [facility] [address] [facility] [id number] [address] [place] [address] Apr, Gastroenteritis K52.9 [facility] [address] [facility] [id number] [address] [place] [address] Apr, Blood in urine R31.9 and Acu te cystitis with hematuria N30.01 [place] [address] [facility] [id number] [address] [place] [address] 17 Apr, 2016 Major depressive disorder in partial remission F32.4 ; FRANCIS (generalized anxiety disorder) F41.1 and Conversion disorder (or hysterical neurosis, conversion type) F44.9 [facility] [address] [id number] [address] [place] [address] Apr, [facility] [address] [facility] [id number] [address] [place] [address] Apr, Abnormal mammogram R92.8 [facility] [address] [facility] [id number] [address] [place] [address] Mar, [facility] [address] [facility] [id number] [address] [place] [address] Mar, Gastroenteritis K52.9 and Se izure disorder G40.909 [facility] [address] [facility] [id number] [address] [place] [address] Dec, [facility] [address] [facility] [id number] [address] [place] [address] Dec, Other headache syndrome G44. 89 [facility] [address] [id number] [address] [place] [address] Dec, [facility] [address] [facility] [id number] [address] [place] [address] Dec, Thoracic disc herniation M51 .24 [facility] [address] [facility] [id number] [address] [place] [address] Dec, [facility] [address] [facility] [id number] [address] [place] [address] Nov, Major depressive disorder in partial remission F32.4 and FRANCIS (generalized anxiety disorder) F41.1 [facility] [address] [facility] [id number] [address] [place] [address] Nov, [facility] [address] [facility] [id number] [address] [place] [address] Nov, Dorsalgia, unspecified M54.9 [facility] [address] [facility] [id number] [address] [place] [address] Oct, [place] [address] [id number] [address] [place] [address], [place] [address] September, [facility] [address] [id number] [address] [place] [address] Aug, [facility] [address] [id number] [address] [place] [address], [place] [address] Aug, Major depressive disorder in partial remission F32.4 and FRANCIS (generalized anxiety disorder) F41.1 [facility] [address] [id number] [address] [place] [address], [place] [address] Aug, [facility] [address] [id number] [address] [place] [address] Jul, Abnormal mammogram R92.8 [facility] [address] [id number] [address] [place] [address], [place] [address] Jul, [facility] [address] [id number] [address] [place] [address] Jul, [facility] [address] [id number] [address] [place] [address] Jul, [facility] [address] [id number] [address] [place] [address], [place] [address] Jul, [facility] [address] [id number] [address] [place] [address], [place] [address] Jul, [facility] [address] [id number] [address] [place] [address] Jul, [facility] [address] [id number] [address] [place] [address] Jun, Major depressive disorder in partial remission F32.4 and FRANCIS (generalized anxiety disorder) F41.1 [facility] [address] [id number] [address] [place] [address], [place] [address] Jun, [facility] [address] [id number] [address] [place] [address] May, [facility] [address] [id number] [address] [place] [address] Apr, [facility] [address] [id number] [address] [place] [address] Mar, Major depressive disorder, r ecurrent episode, moderate F33.1 ; PTSD (post-traumatic stress disorder) F43.10 and FRANCIS (generalized anxiety disorder) F41.1 [facility] [address] [id number] [address] [place] [address] Mar, [facility] [address] [id number] [address] [place] [address] Mar, [facility] [address] [id number] [address] [place] [address] Mar, [facility] [address] [id number] [address] [place] [address] Mar, [facility] [address] [id number] [address] [place] [address] Jan, [facility] [address] [id number] [address] [place] [address] 15 Jan, 2015 [facility] [address] [id number] [address] [place] [address] 15 Jan, 2015 [facility] [address] [id number] [address] [place] [address] 14 Jan, 2015 Thoracic disc herniation 722 .11 [facility] [address] [id number] [address] [place] [address] Dec, [facility] [address] [id number] [address] [place] [address] Dec, [facility] [address] [id number] [address] [place] [address] Dec, [facility] [address] [id number] [address] [place] [address] Nov, [facility] [address] [id number] [address] [place] [address] 14 Nov, 2014 Generalized anxiety disorder 300.02 ; Posttraumatic stress disorder 309.81 and Major depressive disorder, recurrent episode, moderate 296.32 [facility] [address] [id number] [address] [place] [address] Nov, [facility] [address] [id number] [address] [place] [address] Nov, [facility] [address] [id number] [address] [place] [address] Oct, [facility] [address] [id number] [address] [place] [address] Oct, [facility] [address] [id number] [address] [place] [address] Oct, [facility] [address] [id number] [address] [place] [address] September, [facility] [address] [id number] [address] [place] [address] September, [facility] [address] [id number] [address] [place] [address] Aug, [facility] [address] [id number] [address] [place] [address] Aug, [facility] [address] [id number] [address] [place] [address] Jul, [facility] [address] [id number] [address] [place] [address] Jul, [facility] [address] [id number] [address] [place] [address] Jul, [facility] [address] [id number] [address] [place] [address] 17 Jul, 2014 [facility] [address] [id number] [address] [place] [address] 16 Jul, 2014 [facility] [address] [id number] [address] [place] [address], [place] [address] 16 Jul, 2014 [facility] [address] [id number] [address] [place] [address], [place] [address] Jul, [facility] [address] [id number] [address] [place] [address], [place] [address] 19 Jul, 2014 [facility] [address] [id number] [address] [place] [address], [place] [address] Jul, [facility] [address] [id number] [address] [place] [address], [place] [address] Jul, [facility] [address] [id number] [address] [place] [address], [place] [address] Jun, [facility] [address] [id number] [address] [place] [address], [place] [address] Jun, [facility] [address] [id number] [address] [place] [address], [place] [address] Jun, [facility] [address] [id number] [address] [place] [address], [place] [address] May, [facility] [address] [id number] [address] [place] [address], [place] [address] Apr, [facility] [address] [id number] [address] [place] [address], [place] [address] Apr, [facility] [address] [id number] [address] [place] [address], [place] [address] Apr, [facility] [address] [id number] [address] [place] [address], [place] [address] Apr, [facility] [address] [id number] [address] [place] [address], [place] [address] Apr, [facility] [address] [id number] [address] [place] [address], [place] [address] Apr, [facility] [address] [id number] [address] [place] [address], [place] [address] Apr, [facility] [address] [id number] [address] [place] [address], [place] [address] Apr, [facility] [address] [id number] [address] [place] [address], [place] [address] Mar, [facility] [address] [id number] [address] [place] [address], [place] [address] Mar, [facility] [address] [id number] [address] [place] [address], [place] [address] Mar, [facility] [address] [id number] [address] [place] [address], [place] [address] Mar, [facility] [address] [id number] [address] [place] [address], [place] [address] Mar, [facility] [address] [id number] [address] [place] [address], [place] [address] Mar, [facility] [address] [id number] [address] [place] [address], [place] [address] Mar, [facility] [address] [id number] [address] [place] [address], [place] [address] Mar, [facility] [address] [id number] [address] [place] [address], [place] [address] Mar, [facility] [address] [id number] [address] [place] [address], [place] [address] Mar, [facility] [address] [id number] [address] [place] [address] 17 Mar, 2014 [facility] [address] [id number] [address] [place] [address], [place] [address] 14 Mar, 2014 [facility] [address] [address] [id number] [address] [place] [address], [place] [address] Mar, [facility] [address] [id number] [address] [place] [address], [place] [address] Mar, [facility] [address] [id number] [address] [place] [address], [place] [address] 07 Mar, 2013 [facility] [address] [id number] [address] [place] [address], [place] [address] 06 Mar, 2013 [facility] [address] [id number] [address] [place] [address], [place] [address] 06 Mar, 2013 [facility] [address] [id number] [address] [place] [address], [place] [address] 19 Sep, 2013 [facility] [address] [id number] [address] [place] [address], [place] [address] 19 Sep, 2013 [facility] [address] [id number] [address] [place] [address], [place] [address] 09 Sep, 2013 [facility] [address] [id number] [address] [place] [address], [place] [address] 09 Sep, 2013 [facility] [address] [id number] [address] [place] [address], [place] [address] 05 Sep, 2013 [facility] [address] [id number] [address] [place] [address], [place] [address] 05 Sep, 2013 [facility] [address] [id number] [address] [place] [address], [place] [address] 05 Sep, 2013 [facility] [address] [id number] [address] [place] [address], [place] [address] 05 Sep, 2013 [facility] [address] [id number] [address] [place] [address], [place] [address] 03 Sep, 2013 [facility] [address] [id number] [address] [place] [address], [place] [address] 02 Sep, 2013 [facility] [address] [id number] [address] [place] [address], [place] [address] 02 Sep, 2013 [facility] [address] [id number] [address] [place] [address], [place] [address] 02 Sep, 2013 [facility] [address] [id number] [address] [place] [address], [place] [address] Jan, [facility] [address] [id number] [address] [place] [address], [place] [address] Dec, [facility] [address] [id number] [address] [place] [address], [place] [address] Dec, [facility] [address] [id number] [address] [place] [address], [place] [address] Dec, [facility] [address] [id number] [address] [place] [address], [place] [address] Dec, [facility] [address] [id number] [address] [place] [address], [place] [address] Dec, [facility] [address] [id number] [address] [place] [address], [place] [address] Dec, [facility] [place] [id number] Dec, [facility] [id number] Dec, [facility] [address] [id number] [address] [place] [address], [place] [address] Dec, [facility] [address] [id number] [address] [place] [address], [place] [address] Dec, [facility] [address] [id number] [address] [place] [address], [place] [address] Dec, [facility] [address] [id number] [address] [place] [address], [place] [address] Dec, [facility] [address] [id number] [address] [place] [address], [place] [address] Nov, [facility] [address] [id number] [address] [place] [address], [place] [address] Nov, [facility] [address] [id number] [address] [place] [address], [place] [address] Nov, [facility] [address] [id number] [address] [place] [address], [place] [address] Nov, [facility] [address] [id number] [facility] [place] [address] Nov, [facility] [address] [id number] [facility] [place] [address] Nov, [facility] [address] [id number] [facility] [place] [address] Nov, [facility] [address] [id number] [facility] [place] [address] Nov, [facility] [address] [id number] [facility] [place] [address] Nov, [facility] [address] [id number] [address] [place] [address], [place] [address] Nov, [facility] [address] [id number] [address] [place] [address], [place] [address] Nov, [facility] [address] [id number] [address] [place] [address], [place] [address] Nov, [facility] [address] [id number] [address] [place] [address], [place] [address] Nov, [facility] [address] [id number] [address] [place] [address], [place] [address] Oct, [facility] [address] [id number] [address] [place] [address], [place] [address] Oct, [facility] [address] [id number] [address] [place] [address], [place] [address] Oct, [facility] [address] [id number] [address] [place] [address], [place] [address] Oct, [facility] [address] [id number] [address] [place] [address], [place] [address] Oct, [facility] [address] [id number] [address] [place] [address], [place] [address] Oct, [facility] [address] [id number] [address] [place] [address], [place] [address] Oct, [facility] [address] [id number] [facility] [place] [address] Oct, [facility] [address] [id number] [address] [place] [address], [place] [address] Oct, [facility] [address] [id number] [address] [place] [address], [place] [address] Oct, [facility] [address] [id number] [address] [place] [address], [place] [address] Oct, [facility] [address] [id number] [address] [place] [address], [place] [address] Oct, [facility] [address] [id number] [address] [place] [address], [place] [address] September, [facility] [address] [id number] [address] [place] [address], [place] [address] September, [facility] [address] [id number] [address] [place] [address], [place] [address] September, [facility] [address] [id number] [address] [place] [address], [place] [address] September, [facility] [address] [id number] [address] [place] [address], [place] [address] Aug, [facility] [address] [id number] [address] [place] [address], [place] [address] Aug, [facility] [address] [id number] [address] [place] [address], [place] [address] Aug, [facility] [address] [id number] [address] [place] [address], [place] [address] Aug, [facility] [address] [id number] [address] [place] [address], [place] [address] Aug, [facility] [address] [id number] [address] [place] [address], [place] [address] Aug, [facility] [address] [id number] [address] [place] [address], [place] [address] 10 Aug, 2013 [facility] [address] [id number] [address] [place] [address], [place] [address] 28 Jul, 2013 [facility] [address] [id number] [address] [place] [address], [place] [address] 28 Jul, 2013 [facility] [address] [id number] [address] [place] [address], [place] [address] 28 Jul, 2013 [facility] [address] [id number] [address] [place] [address], [place] [address] 28 Jul, 2013 [facility] [address] [id number] [address] [place] [address], [place] [address] 19 Jul, 2013 [facility] [address] [id number] [address] [place] [address], [place] [address] 19 Jul, 2013 [facility] [address] [id number] [address] [place] [address], [place] [address] 18 Jul, 2013 [facility] [address] [id number] [address] [place] [address], [place] [address] 18 Jul, 2013 [facility] [address] [id number] [address] [place] [address], [place] [address] 18 Jul, 2013 [facility] [address] [id number] [address] [place] [address], [place] [address] 18 Jul, 2013 [facility] [address] [id number] [address] [place] [address], [place] [address] 18 Jul, 2013 [facility] [address] [id number] [address] [place] [address], [place] [address] 18 Jul, 2013 [facility] [address] [id number] [address] [place] [address], [place] [address] 14 Jul, 2013 [facility] [address] [id number] [address] [place] [address], [place] [address] 14 Jul, 2013 [facility] [address] [id number] [address] [place] [address], [place] [address] Jul, [facility] [address] [id number] [facility] [place] [address] Jul, [facility] [address] [id number] [address] [place] [address], [place] [address] 11 Jul, 2013 [facility] [address] [id number] [address] [place] [address], [place] [address] Jul, [facility] [address] [id number] [address] [place] [address], [place] [address] Jun, [facility] [address] [id number] [address] [place] [address], [place] [address] 31 Jun, 2013 [facility] [address] [id number] [address] [place] [address], [place] [address] 15 Jun, 2013 [facility] [address] [id number] [address] [place] [address], [place] [address] 15 Jun, 2013 [facility] [address] [id number] [address] [place] [address], [place] [address] 14 Jun, 2013 [facility] [address] [id number] [address] [place] [address], [place] [address] 14 Jun, 2013 [facility] [address] [id number] [address] [place] [address], [place] [address] 14 Jun, 2013 [facility] [address] [id number] [address] [place] [address], [place] [address] 14 Jun, 2013 [facility] [address] [id number] [address] [place] [address], [place] [address] 14 Jun, 2013 [facility] [address] [id number] [address] [place] [address], [place] [address] Jun, [facility] [address] [id number] [address] [place] [address], [place] [address] May, [facility] [address] [id number] [address] [place] [address], [place] [address] May, [facility] [address] [id number] [address] [place] [address], [place] [address] 26 May, 2013 [facility] [address] [id number] [address] [place] [address], [place] [address] 19 May, 2013 [facility] [address] [id number] [address] [place] [address], [place] [address] 19 May, 2013 [facility] [address] [id number] [address] [place] [address], [place] [address] 16 May, 2013 [facility] [address] [id number] [address] [place] [address], [place] [address] 16 May, 2013 [facility] [address] [id number] [address] [place] [address], [place] [address] 16 May, 2013 [facility] [address] [id number] [address] [place] [address], [place] [address] 16 May, 2013 [facility] [address] [id number] [address] [place] [address], [place] [address] 13 May, 2013 [facility] [address] [id number] [address] [place] [address], [place] [address] 13 May, 2013 [facility] [address] [id number] [address] [place] [address], [place] [address] 11 May, 2013 [facility] [address] [id number] [address] [place] [address], [place] [address] 20 Apr, 2013 [facility] [address] [id number] [address] [place] [address], [place] [address] 18 Apr, 2013 [facility] [address] [id number] [address] [place] [address], [place] [address] 18 Apr, 2013 [facility] [address] [id number] [address] [place] [address], [place] [address] 13 Apr, 2013 [facility] [address] [id number] [address] [place] [address], [place] [address] 13 Apr, 2013 [facility] [address] [id number] [address] [place] [address], [place] [address] 08 Apr, 2013 [facility] [address] [id number] [address] [place] [address], [place] [address] 08 Apr, 2013 [facility] [address] [id number] [address] [place] [address], [place] [address] Apr, [facility] [address] [id number] [address] [place] [address], [place] [address] 07 Apr, 2013 [facility] [address] [id number] [address] [place] [address], [place] [address] Apr, [facility] [address] [id number] [address] [place] [address], [place] [address] Apr, [facility] [address] [id number] [address] [place] [address], [place] [address] Mar, [facility] [address] [id number] [address] [place] [address], [place] [address] Mar, [facility] [address] [id number] [address] [place] [address] Mar, [facility] [address] [id number] [address] [place] [address], [place] [address] Mar, [facility] [address] [id number] [address] [place] [address] Mar, [facility] [address] [id number] [address] [place] [address] Mar, [facility] [address] [id number] [address] [place] [address] Mar, [facility] [address] [id number] [address] [place] [address] 18 Mar, 2013 [facility] [address] [id number] [address] [place] [address] 18 Mar, 2013 [facility] [address] [id number] [address] [place] [address] 15 Mar, 2013 [facility] [address] [id number] [address] [place] [address] Mar, [facility] [address] [id number] [address] [place] [address], [place] [address] Mar, [facility] [address] [id number] [address] [place] [address], [place] [address] Jan, [facility] [address] [id number] [address] [place] [address], [place] [address] Jan, [facility] [address] [id number] [address] [place] [address], [place] [address] Jan, [facility] [address] [id number] [address] [place] [address], [place] [address] Jan, [facility] [address] [id number] [address] [place] [address], [place] [address] Dec, [facility] [address] [id number] [address] [place] [address], [place] [address] Dec, [facility] [address] [id number] [address] [place] [address], [place] [address] Dec, [facility] [address] [id number] [address] [place] [address], [place] [address] Dec, [facility] [address] [id number] [address] [place] [address], [place] [address] Dec, [facility] [address] [id number] [address] [place] [address], [place] [address] Dec, [facility] [address] [id number] [address] [place] [address], [place] [address] Dec, [facility] [address] [id number] [address] [place] [address], [place] [address] Dec, [facility] [address] [id number] [address] [place] [address], [place] [address] Dec, [facility] [address] [id number] [address] [place] [address], [place] [address] Nov, [facility] [address] [id number] [facility] [place] [address] Nov, [facility] [address] [id number] [facility] [place] [address] Nov, [facility] [address] [id number] [facility] [place] [address] Nov, [facility] [address] [id number] [address] [place] [address], [place] [address] Nov, [facility] [address] [id number] [address] [place] [address], [place] [address] Nov, [facility] [address] [id number] [address] [place] [address], [place] [address] Nov, [facility] [address] [id number] [address] [place] [address], [place] [address] Nov, [facility] [address] [id number] [address] [place] [address], [place] [address] Oct, [facility] [address] [id number] [address] [place] [address], [place] [address] Oct, [facility] [address] [id number] [address] [place] [address], [place] [address] Oct, [facility] [address] [id number] [address] [place] [address], [place] [address] Oct, [facility] [address] [id number] [address] [place] [address], [place] [address] Oct, [facility] [address] [id number] [address] [place] [address], [place] [address] Oct, [facility] [address] [id number] [address] [place] [address], [place] [address] Oct, [facility] [address] [id number] [address] [place] [address], [place] [address] Oct, [facility] [address] [id number] [address] [place] [address], [place] [address] 19 Oct, 2012 [facility] [address] [id number] [address] [place] [address], [place] [address] 18 Oct, 2012 [facility] [address] [id number] [address] [place] [address], [place] [address] 17 Oct, 2012 [facility] [address] [id number] [address] [place] [address], [place] [address] 14 Oct, 2012 [facility] [address] [id number] [address] [place] [address], [place] [address] 07 Oct, 2012 [facility] [address] [id number] [address] [place] [address], [place] [address] 30 Sep, 2012 [facility] [address] [id number] [address] [place] [address], [place] [address] September, [facility] [address] [id number] [address] [place] [address], [place] [address] September, [facility] [address] [id number] [address] [place] [address], [place] [address] 25 Aug, 2012 [facility] [address] [id number] [address] [place] [address], [place] [address] 24 Aug, 2012 [facility] [address] [id number] [address] [place] [address], [place] [address] 18 Aug, 2012 [facility] [address] [id number] [address] [place] [address], [place] [address] Aug, [facility] [address] [id number] [address] [place] [address], [place] [address] 18 Aug, 2012 [facility] [address] [id number] [address] [place] [address], [place] [address] 08 Aug, 2012 [facility] [address] [id number] [address] [place] [address], [place] [address] 05 Aug, 2012 [facility] [address] [id number] [address] [place] [address], [place] [address] Jul, [facility] [address] [id number] [address] [place] [address], [place] [address] Jul, [facility] [address] [id number] [address] [place] [address], [place] [address] Jul, [facility] [address] [id number] [address] [place] [address], [place] [address] Jul, [facility] [address] [id number] [address] [place] [address], [place] [address] Jul, [facility] [address] [id number] [address] [place] [address], [place] [address] Jul, [facility] [address] [id number] [address] [place] [address], [place] [address] Jul, [facility] [address] [id number] [address] [place] [address], [place] [address] Jul, [facility] [address] [id number] [address] [place] [address], [place] [address] Jul, [facility] [address] [id number] [address] [place] [address], [place] [address] Jul, [facility] [address] [id number] [address] [place] [address], [place] [address] Jul, [facility] [address] [id number] [address] [place] [address], [place] [address] Jul, [facility] [address] [id number] [address] [place] [address], [place] [address] Jul, [facility] [address] [id number] [address] [place] [address], [place] [address] Jun, [facility] [address] [id number] [address] [place] [address], [place] [address] Jun, [facility] [address] [id number] [address] [place] [address], [place] [address] Jun, [facility] [address] [id number] [address] [place] [address], [place] [address] 17 Jun, 2012 [facility] [address] [id number] [address] [place] [address], [place] [address] 15 Jun, 2012 [facility] [address] [id number] [address] [place] [address], [place] [address] 14 Jun, 2012 [facility] [address] [id number] [address] [place] [address], [place] [address] 08 Jun, 2012 [facility] [address] [id number] [address] [place] [address], [place] [address] May, [facility] [address] [id number] [address] [place] [address], [place] [address] May, [facility] [address] [id number] [address] [place] [address], [place] [address] May, [facility] [address] [id number] [address] [place] [address], [place] [address] May, [facility] [address] [id number] [address] [place] [address], [place] [address] May, [facility] [address] [id number] [address] [place] [address], [place] [address] May, [facility] [address] [id number] [address] [place] [address], [place] [address] May, [facility] [address] [id number] [address] [place] [address], [place] [address] May, [facility] [address] [id number] [address] [place] [address], [place] [address] May, [facility] [address] [id number] [address] [place] [address], [place] [address] May, [facility] [address] [id number] [address] [place] [address], [place] [address] Apr, [facility] [address] [id number] [address] [place] [address], [place] [address] Apr, [facility] [address] [id number] [address] [place] [address], [place] [address] Apr, [facility] [address] [id number] [address] [place] [address], [place] [address] Apr, [facility] [address] [id number] [address] [place] [address], [place] [address] Apr, [facility] [address] [id number] [address] [place] [address], [place] [address] Apr, [facility] [address] [id number] [address] [place] [address], [place] [address] Apr, [facility] [address] [id number] [address] [place] [address], [place] [address] Apr, [facility] [address] [id number] [address] [place] [address], [place] [address] Apr, [facility] [address] [id number] [address] [place] [address], [place] [address] Apr, [facility] [address] [id number] [address] [place] [address], [place] [address] Apr, [facility] [address] [id number] [address] [place] [address], [place] [address] Apr, [facility] [address] [id number] [address] [place] [address], [place] [address] Mar, [facility] [address] [id number] [address] [place] [address], [place] [address] Mar, [facility] [address] [id number] [address] [place] [address] Mar, [facility] [address] [id number] [address] [place] [address], [place] [address] Mar, [facility] [address] [id number] [address] [place] [address], [place] [address] Mar, [facility] [address] [id number] [address] [place] [address], [place] [address] Mar, [facility] [address] [id number] [address] [place] [address], [place] [address] Mar, [facility] [address] [id number] [address] [place] [address], [place] [address] Mar, [facility] [address] [id number] [address] [place] [address], [place] [address] Mar, [facility] [address] [id number] [address] [place] [address], [place] [address] Mar, [facility] [address] [id number] [address] [place] [address], [place] [address] Mar, [facility] [address] [id number] [address] [place] [address], [place] [address] Mar, [facility] [address] [id number] [address] [place] [address], [place] [address] Mar, [facility] [address] [id number] [address] [place] [address], [place] [address] Mar, [facility] [address] [id number] [address] [place] [address], [place] [address] Mar, [facility] [address] [id number] [address] [place] [address], [place] [address] Mar, [facility] [address] [id number] [address] [place] [address], [place] [address] 25 Jan, 2012 [facility] [address] [id number] [address] [place] [address], [place] [address] 24 Jan, 2012 [facility] [address] [id number] [address] [place] [address], [place] [address] 22 Jan, 2012 [facility] [address] [id number] [address] [place] [address], [place] [address] 22 Jan, 2012 [facility] [address] [id number] [address] [place] [address], [place] [address] 21 Jan, 2012 [facility] [address] [id number] [address] [place] [address], [place] [address] 18 Jan, 2012 [facility] [address] [id number] [address] [place] [address], [place] [address] 14 Jan, 2012 [facility] [address] [id number] [address] [place] [address], [place] [address] 07 Jan, 2012 [facility] [address] [id number] [address] [place] [address], [place] [address] 15 Dec, 2011 [facility] [address] [id number] [address] [place] [address], [place] [address] 10 Dec, 2011 [facility] [address] [id number] [address] [place] [address], [place] [address] Dec, [facility] [address] [id number] [address] [place] [address], [place] [address] Dec, [facility] [address] [id number] [address] [place] [address], [place] [address] Dec, [facility] [address] [id number] [address] [place] [address], [place] [address] Dec, [facility] [address] [id number] [address] [place] [address], [place] [address] Dec, [facility] [address] [id number] [address] [place] [address], [place] [address] Nov, [facility] [address] [id number] [address] [place] [address], [place] [address] Oct, [facility] [address] [id number] [address] [place] [address], [place] [address] 05 Aug, 2011 [facility] [address] [id number] [address] [place] [address], [place] [address] Jul, [facility] [address] [id number] [address] [place] [address], [place] [address] Jul, [facility] [address] [id number] [address] [place] [address], [place] [address] 16 Jul, 2011 [facility] [address] [id number] [address] [place] [address], [place] [address] 14 Jul, 2011 [facility] [address] [id number] [address] [place] [address], [place] [address] 07 Jul, 2011 [facility] [address] [id number] [address] [place] [address], [place] [address] 02 Jul, 2011 [facility] [address] [id number] [address] [place] [address], [place] [address] 21 Jul, 2011 [facility] [address] [id number] [address] [place] [address], [place] [address] 15 Jul, 2011 [facility] [address] [id number] [address] [place] [address], [place] [address] 13 Jul, 2011 [facility] [address] [id number] [address] [place] [address], [place] [address] 03 Jul, 2011 [facility] [address] [id number] [address] [place] [address], [place] [address] 02 Jul, 2011 [facility] [address] [id number] [address] [place] [address], [place] [address] Jun, [facility] [address] [id number] [address] [place] [address], [place] [address] 24 Jun, 2011 [facility] [address] [id number] [address] [place] [address], [place] [address] Jun, [facility] [address] [id number] [address] [place] [address], [place] [address] Jun, [facility] [address] [id number] [address] [place] [address], [place] [address] Jun, [facility] [address] [id number] [address] [place] [address], [place] [address] Jun, [facility] [address] [id number] [address] [place] [address], [place] [address] Jun, [facility] [address] [id number] [address] [place] [address], [place] [address] May, [facility] [address] [id number] [address] [place] [address], [place] [address] May, [facility] [address] [id number] [address] [place] [address], [place] [address] May, [facility] [address] [id number] [address] [place] [address], [place] [address] May, [facility] [address] [id number] [address] [place] [address], [place] [address] 14 May, 2011 [facility] [address] [id number] [address] [place] [address], [place] [address] May, [facility] [address] [id number] [address] [place] [address], [place] [address] May, [facility] [address] [id number] [address] [place] [address], [place] [address] May, [facility] [address] [id number] [address] [place] [address], [place] [address] May, [facility] [address] [id number] [address] [place] [address], [place] [address] May, [facility] [address] [id number] [address] [place] [address] 15 Apr, 2011 [facility] [address] [id number] [address] [place] [address] 15 Apr, 2011 [facility] [address] [id number] [address] [place] [address] Apr, [facility] [address] [id number] [address] [place] [address], [place] [address] Apr, [facility] [address] [id number] [address] [place] [address], [place] [address] Mar, [facility] [address] [id number] [address] [place] [address], [place] [address] 24 Mar, 2011 [facility] [address] [id number] [address] [place] [address] Mar, [facility] [address] [facility] [id number] [address] [place] [address] Mar, IMMUNIZATIONS No Known Immunizations SOCIAL HISTORY [...]
--- OUTSIDE RECORDS SUMMARY | 2020-01-03 18:14 | XMS REPORT ---
Author Author Pattie YUNG Organization [facility] Address [address] [place] [address] Care Team Providers Care Practice Coordinator Name Role Phone DILSHADRAFAELARASH Unavailable PROBLEMS Type Condition ICD9-CM Code [id number] Code Onset Dates Condition S tatus SNOMED Code Problem Major depressive disorder in partial remission F32 .4 Active 72620389 Problem FRANCIS (generalized anxiety disorder) F41.1 Active 37632315 Problem Conversion disorder (or hysterical neurosis, conversion ty pe) F44.9 Active 12315208 Problem Thoracic disc herniation M51.24 Activ e 999117347 Problem Slow transit constipation K59.01 Acti ve 68938405 Problem Constipation, unspecified constipation type K59.00 Active 77173754 Problem Mild episode of recurrent major depressive disorder F33.0 Active 883259413 Problem High blood pressure I10 Active 68650910 Problem Paroxysmal tachycardia I47.9 Active 84274185 Problem Nonadherence to medication Z91.14 Act vivian 622582694 Problem Seizure disorder G40.909 Active 128 427596 Problem Restless leg syndrome G25.81 Active 24931542 Problem Other chronic pain G89.29 Active 8 1155520 Problem Mild intermittent asthma without complication J45. 20 Active 631514006 Problem Obesity (BMI 30.0-34.9) E66.9 Active [id number] ALLERGIES No Information ENCOUNTERS Encounter Location Date Diagnosis [facility] [address] [id number] [address] [place] [phone] Aug, [facility] [address] [id number] [address] [place] [phone] Aug, Major depressive disorder in partial remission F32.4 ; FRANCIS (generalized anxiety disorder) F41.1 ; Restless leg syndrome G25.81 and Nonadherence to medication Z91.14 [facility] [address] [id number] [address] [place] [phone] Aug, [facility] [address] [id number] [address] [place] [id number] Jul, [facility] [address] [id number] [address] [place] [phone] Jul, [facility] [address] [id number] [address] [place] [phone] Jul, Major depressive disorder in partial remission F32.4 ; FRANCIS (generalized anxiety disorder) F41.1 ; Restless leg syndrome G25.81 and High blood pressure I10 [facility] [address] [id number] [address] [place] [phone] Jul, [facility] [address] [id number] [address] [place] [phone] Jul, [facility] [address] [id number] [address] [place] [phone] Jun, [facility] [address] [id number] [address] [place] [phone] May, [facility] [address] [id number] [address] [place] [phone] Apr, [facility] [address] [id number] [address] [place] [phone] Apr, [facility] [address] [id number] [address] [place] [phone] Mar, [facility] [address] [id number] [address] [place] [phone] Mar, Major depressive disorder in partial remission F32.4 ; FRANCIS (generalized anxiety disorder) F41.1 and Restless leg syndrome G25.81 [facility] [address] [id number] [address] [place] [phone] Mar, Obesity (BMI 30.0-34.9) E66. 9 [facility] [address] [id number] [address] [place] [phone] Jan, [facility] [address] [id number] [address] [place] [phone] Jan, Burn T30.0 [facility] [address] [id number] [address] [place] [phone] Dec, [facility] [address] [id number] [address] [place] [phone] Nov, [facility] [address] [id number] [address] [place] [phone] Nov, [facility] [id number] [place] [id number] Nov, Dental examination Z01.20 [facility] [address] [id number] [address] [place] [phone] September, [facility] [address] [id number] September, Decay, teeth K02.9 and Denta l examination Z01.20 [facility] [address] [id number] September, Dental examination Z01.20 [facility] [address] [id number] [address] [place] [phone] September, FRANCIS (generalized anxiety dis order) F41.1 ; Major depressive disorder in partial remission F32.4 and Restless leg syndrome G25.81 [facility] [address] [id number] [address] [place] [phone] Aug, [facility] [address] [id number] [address] [place] [phone] Jul, [facility] [id number] [place] [phone] Jul, Encounter to discuss test re sults Z71.2 [facility] [address] [id number] [address] [place] [phone] Jul, Pelvic pain R10.2 ; Screenin g for breast cancer Z12.31 and Obesity (BMI 30.0-34.9) E66.9 [facility] [address] [id number] [address] [place] [phone] Jul, Mild intermittent asthma wit hout complication J45.20 [facility] [address] [id number] [address] [place] [phone] Jul, Major depressive disorder in partial remission F32.4 and FRANCIS (generalized anxiety disorder) F41.1 [facility] [address] [id number] [address] [place] [phone] Jul, [facility] [address] [id number] [address] [place] [phone] Jun, [facility] [address] [id number] [address] [place] [phone] May, Major depressive disorder in partial remission F32.4 ; FRANCIS (generalized anxiety disorder) F41.1 and Restless leg syndrome G25.81 [facility] [address] [id number] [address] [place] [phone] Apr, [facility] [address] [id number] [address] [place] [phone] Mar, [facility] [address] [id number] [address] [place] [id number] Jan, Pain in thoracic spine M54.6 and Other chronic pain G89.29 [facility] [address] [id number] [address] [place] [id number] 14 Jan, 2018 [facility] [address] [id number] [address] [place] [id number] 11 Jan, 2018 Mild episode of recurrent ma saray depressive disorder F33.0 ; FRANCIS (generalized anxiety disorder) F41.1 and Restless leg syndrome G25.81 [facility] [address] [id number] [address] [place] [phone] Dec, [facility] [address] [id number] [address] [place] [phone] Dec, Hospital discharge follow-up Z09 [facility] [address] [id number] [address] [place] [phone] Nov, [facility] [address] [id number] [address] [place] [phone] Nov, [facility] [address] [id number] [address] [place] [phone] September, [facility] [address] [id number] [address] [place] [phone] September, [facility] [address] [id number] [address] [place] [phone] September, Major depressive disorder in partial remission F32.4 ; FRANCIS (generalized anxiety disorder) F41.1 and Restless leg syndrome G25.81 [facility] [address] [id number] [address] [place] [phone] September, [facility] [address] [id number] [address] [place] [phone] Jul, [facility] [address] [id number] [address] [place] [phone] Jul, Dorsalgia, unspecified M54.9 [facility] [address] [id number] [address] [place] [id number] Jul, Mild episode of recurrent ma saray depressive disorder F33.0 and FRANCIS (generalized anxiety disorder) F41.1 [facility] [address] [id number] [address] [place] [phone] May, [facility] [address] [id number] [address] [place] [phone] May, Dysuria R30.0 and Acute cyst itis with hematuria N30.01 [facility] [address] [id number] [address] [place] [id number] Apr, [facility] [address] [id number] [address] [place] [phone] Apr, Major depressive disorder in partial remission F32.4 and FRANCIS (generalized anxiety disorder) F41.1 [facility] [address] [id number] [address] [place] [phone] Mar, Paroxysmal tachycardia I47.9 [facility] [address] [id number] [address] [place] [phone] Mar, Paroxysmal tachycardia I47.9 and Pain of left lower extremity M79.605 [facility] [address] [id number] [address] [place] [phone] Mar, FRANCIS (generalized anxiety dis order) F41.1 and Major depressive disorder in partial remission F32.4 [facility] [address] [id number] [address] [place] [id number] Jan, [facility] [address] [id number] [address] [place] [id number] 14 Jan, 2017 [facility] [address] [id number] [address] [place] [phone] Jan, [facility] [address] [id number] [address] [place] [id number] Dec, Constipation, unspecified co nstipation type K59.00 [facility] [address] [id number] [address] [place] [phone] Dec, [facility] [address] [id number] [address] [place] [phone] Nov, [facility] [address] [id number] [address] [place] [phone] Nov, Major depressive disorder in partial remission F32.4 and FRANCIS (generalized anxiety disorder) F41.1 [facility] [address] [id number] [address] [place] [phone] Oct, Abdominal pain R10.9 and Slo w transit constipation K59.01 [facility] [address] [id number] [address] [place] [phone] Aug, Major depressive disorder in partial remission F32.4 ; FRANCIS (generalized anxiety disorder) F41.1 ; Conversion disorder (or hysterical neurosis, conversion type) F44.9 ; Dorsalgia, unspecified M54.9 and Long-term use of high-risk medication Z79.899 [address] [id number] [address] [place] [phone] Aug, [place] [address] [id number] [address] [place] [phone] Jul, Paroxysmal tachycardia I47.9 [place] [address] [id number] [address] [place] [phone] Jul, Paroxysmal tachycardia I47.9 [place] [address] [id number] [address] [place] [phone] Jun, [place] [address] [id number] [address] [place] [phone] Jun, Major depressive disorder in partial remission F32.4 ; FRANCIS (generalized anxiety disorder) F41.1 and Conversion disorder (or hysterical neurosis, conversion type) F44.9 [facility] [address] [id number] [address] [place] [phone] May, Pelvic pain R10.2 [facility] [address] [id number] [address] [place] [phone] Apr, Gastroenteritis K52.9 [facility] [address] [id number] [address] [place] [phone] Apr, Blood in urine R31.9 [address] cystitis with hematuria N30.01 [facility] [address] [id number] [address] [place] [phone] 17 Apr, 2016 Major depressive disorder in partial remission F32.4 ; FRANCIS (generalized anxiety disorder) F41.1 and Conversion disorder (or hysterical neurosis, conversion type) F44.9 [facility] [address] [id number] [address] [place] [id number] Apr, [facility] [address] [id number] [address] [place] [phone] Apr, Abnormal mammogram R92.8 [facility] [address] [id number] [address] [place] [id number] Mar, [facility] [address] [id number] [address] [place] [phone] Mar, Gastroenteritis K52.9 and Se izure disorder G40.909 [facility] [address] [id number] [address] [place] [phone] Dec, [facility] [address] [id number] [address] [place] [phone] Dec, Other headache syndrome G44. 89 [facility] [address] [id number] [address] [place] [phone] Dec, [facility] [address] [id number] [address] [place] [phone] Dec, Thoracic disc herniation M51 .24 [facility] [address] [id number] [address] [place] [phone] Dec, [facility] [address] [id number] [address] [place] [phone] Nov, Major depressive disorder in partial remission F32.4 and FRANCIS (generalized anxiety disorder) F41.1 [facility] [address] [id number] [address] [place] [phone] Nov, [facility] [address] [id number] [address] [place] [phone] Nov, Dorsalgia, unspecified M54.9 [facility] [address] [id number] [address] [place] [phone] Oct, [facility] [address] [id number] [address] [place] [phone] September, [facility] [address] [id number] [address] [place] [phone] Aug, [facility] [address] [id number] [address] [place] [phone] Aug, Major depressive disorder in partial remission F32.4 and FRANCIS (generalized anxiety disorder) F41.1 [facility] [address] [id number] [address] [place] [phone] Aug, [facility] [address] [id number] [address] [place] [phone] Jul, Abnormal mammogram R92.8 [facility] [address] [id number] [address] [place] [phone] Jul, [facility] [address] [id number] [address] [place] [phone] Jul, [facility] [address] [id number] [address] [place] [phone] Jul, [facility] [address] [id number] [address] [place] [phone] Jul, [facility] [address] [id number] [address] [place] [phone] Jul, [facility] [address] [id number] [address] [place] [phone] Jul, [facility] [address] [id number] [address] [place] [phone] Jun, Major depressive disorder in partial remission F32.4 and FRANCIS (generalized anxiety disorder) F41.1 [facility] [address] [id number] [address] [place] [phone] Jun, [facility] [address] [id number] [address] [place] [phone] May, [facility] [address] [id number] [address] [place] [id number] Apr, [facility] [address] [id number] [address] [place] [phone] Mar, Major depressive disorder, r ecurrent episode, moderate F33.1 ; PTSD (post-traumatic stress disorder) F43.10 and FRANCIS (generalized anxiety disorder) F41.1 [facility] [address] [id number] [address] [place] [phone] Mar, [facility] [address] [id number] [address] [place] [phone] Mar, [facility] [address] [id number] [address] [place] [phone] Mar, [facility] [address] [id number] [address] [place] [phone] Mar, [facility] [address] [id number] [address] [place] [phone] Jan, [facility] [address] [id number] [address] [place] [phone] 15 Jan, 2015 [facility] [address] [id number] [address] [place] [id number] 15 Jan, 2015 [facility] [address] [id number] [address] [place] [id number] 14 Jan, 2015 Thoracic disc herniation 722 .11 [facility] [address] [id number] [address] [place] [phone] Dec, [facility] [address] [id number] [address] [place] [phone] Dec, [facility] [address] [id number] [address] [place] [id number] Dec, [facility] [address] [id number] [address] [place] [id number] Nov, [facility] [address] [id number] [address] [place] [id number] Nov, Generalized anxiety disorder 300.02 ; Posttraumatic stress disorder 309.81 and Major depressive disorder, recurrent episode, moderate 296.32 [facility] [address] [id number] [address] [place] [phone] Nov, [facility] [address] [id number] [address] [place] [phone] Nov, [facility] [address] [id number] [address] [place] [phone] Oct, [facility] [address] [id number] [address] [place] [phone] Oct, [facility] [address] [id number] [address] [place] [phone] Oct, [facility] [address] [id number] [address] [place] [phone] September, [facility] [address] [id number] [address] [place] [phone] September, [facility] [address] [id number] [address] [place] [phone] Aug, [facility] [address] [id number] [address] [place] [phone] Aug, [facility] [address] [id number] [address] [place] [phone] Jul, [facility] [address] [id number] [address] [place] [phone] Jul, [facility] [address] [id number] [address] [place] [phone] Jul, [facility] [address] [id number] [address] [place] [id number] Jul, [facility] [address] [id number] [address] [place] [id number] 16 Jul, 2014 [facility] [address] [id number] [address] [place] [address], [place] [phone] 16 Jul, 2014 [facility] [address] [id number] [address] [place] [address], [place] [phone] Jul, [facility] [address] [id number] [address] [place] [address], [place] [id number] 19 Jul, 2014 [facility] [address] [id number] [address] [place] [address], [place] [phone] Jul, [facility] [address] [id number] [address] [place] [address], [place] [phone] Jul, [facility] [address] [id number] [address] [place] [address], [place] [phone] Jun, [facility] [address] [id number] [address] [place] [address], [place] [address] Jun, [facility] [address] [id number] [address] [place] [address], [place] [address] Jun, [facility] [address] [id number] [address] [place] [address], [place] [address] May, [facility] [address] [id number] [address] [place] [address], [place] [address] Apr, [facility] [address] [id number] [address] [place] [address], [place] [address] Apr, [facility] [address] [id number] [address] [place] [address], [place] [address] Apr, [facility] [address] [id number] [address] [place] [address], [place] [address] Apr, [facility] [address] [id number] [address] [place] [address], [place] [address] Apr, [facility] [address] [id number] [address] [place] [address], [place] [address] Apr, [facility] [address] [id number] [address] [place] [address], [place] [address] Apr, [facility] [address] [id number] [address] [place] [address], [place] [address] Apr, [facility] [address] [id number] [address] [place] [address], [place] [address] Mar, [facility] [address] [id number] [address] [place] [address], [place] [address] Mar, [facility] [address] [id number] [address] [place] [address], [place] [address] Mar, [facility] [address] [id number] [address] [place] [address], [place] [address] Mar, [facility] [address] [id number] [address] [place] [address], [place] [address] Mar, [facility] [address] [id number] [address] [place] [address], [place] [address] Mar, [facility] [address] [id number] [address] [place] [address], [place] [address] Mar, [facility] [address] [id number] [address] [place] [address], [place] [address] Mar, [facility] [address] [id number] [address] [place] [address] Mar, [facility] [address] [id number] [address] [place] [address], [place] [address] Mar, [facility] [address] [id number] [address] [place] [address] Mar, [facility] [address] [id number] [address] [place] [address], [place] [address] Mar, [facility] [address] [id number] [address] [place] [address], [place] [address] Mar, [facility] [address] [id number] [address] [place] [address], [place] [address] Mar, [facility] [address] [id number] [address] [place] [address], [place] [address] 07 Oct, 2013 [facility] [address] [id number] [address] [place] [address], [place] [address] 06 Oct, 2013 [facility] [address] [id number] [address] [place] [address], [place] [address] 06 Oct, 2013 [facility] [address] [id number] [address] [place] [address], [place] [address] 19 Sep, 2013 [facility] [address] [id number] [address] [place] [address], [place] [address] 19 Sep, 2013 [facility] [address] [id number] [address] [place] [address], [place] [address] 09 Sep, 2013 [facility] [address] [id number] [address] [place] [address], [place] [address] 09 Sep, 2013 [facility] [address] [id number] [address] [place] [address], [place] [address] 05 Sep, 2013 [facility] [address] [id number] [address] [place] [address], [place] [address] 05 Sep, 2013 [facility] [address] [id number] [address] [place] [address], [place] [address] 05 Sep, 2013 [facility] [address] [id number] [address] [place] [address], [place] [address] 05 Sep, 2013 [facility] [address] [id number] [address] [place] [address], [place] [address] 03 Sep, 2013 [facility] [address] [id number] [address] [place] [address], [place] [address] 02 Sep, 2013 [facility] [address] [id number] [address] [place] [address], [place] [address] 02 Sep, 2013 [facility] [address] [id number] [address] [place] [address], [place] [address] 02 Sep, 2013 [facility] [address] [id number] [address] [place] [address], [place] [address] 02 Sep, 2013 [facility] [address] [id number] [address] [place] [address], [place] [address] Dec, [facility] [address] [id number] [address] [place] [address], [place] [address] Dec, [facility] [address] [id number] [address] [place] [address], [place] [address] Dec, [facility] [address] [id number] [address] [place] [address], [place] [address] Dec, [facility] [address] [id number] [address] [place] [address], [place] [address] Dec, [facility] [address] [id number] [address] [place] [address], [place] [address] Dec, [facility] [id number] Dec, [facility] [id number] Dec, [facility] [address] [id number] [address] [place] [address], [place] [address] Dec, [facility] [address] [id number] [address] [place] [address], [place] [address] Dec, [facility] [address] [id number] [address] [place] [address], [place] [address] Dec, [facility] [address] [id number] [address] [place] [address], [place] [address] Dec, [facility] [address] [id number] [address] [place] [address], [place] [address] Nov, [facility] [address] [id number] [address] [place] [address], [place] [address] Nov, [facility] [address] [id number] [address] [place] [address], [place] [address] Nov, [facility] [address] [id number] [address] [place] [address], [place] [address] Nov, [facility] [address] [id number] [facility] [place] [address] Nov, [facility] [address] [id number] [facility] [place] [address] Nov, [facility] [address] [id number] [facility] [place] [address] Nov, [facility] [address] [id number] [facility] [place] [address] Nov, [facility] [address] [id number] [facility] [place] [address] Nov, [facility] [address] [id number] [facility] [place] [address] Nov, [facility] [address] [id number] [address] [place] [address], [place] [address] Nov, [facility] [address] [id number] [address] [place] [address], [place] [address] Nov, [facility] [address] [id number] [address] [place] [address], [place] [address] Nov, [facility] [address] [id number] [address] [place] [address], [place] [address] Oct, [facility] [address] [id number] [address] [place] [address], [place] [address] Oct, [facility] [address] [id number] [address] [place] [address], [place] [address] Oct, [facility] [address] [id number] [address] [place] [address], [place] [address] Oct, [facility] [address] [id number] [address] [place] [address], [place] [address] Oct, [facility] [address] [id number] [address] [place] [address], [place] [address] Oct, [facility] [address] [id number] [address] [place] [address], [place] [address] Oct, [facility] [address] [id number] [facility] [address] Oct, [facility] [address] [id number] [address] [place] [address], [place] [address] Oct, [facility] [address] [id number] [address] [place] [address], [place] [address] Oct, [facility] [address] [id number] [address] [place] [address], [place] [address] Oct, [facility] [address] [id number] [address] [place] [address], [place] [address] Oct, [facility] [address] [id number] [address] [place] [address], [place] [address] September, [facility] [address] [id number] [address] [place] [address], [place] [address] September, [facility] [address] [id number] [address] [place] [address], [place] [address] September, [facility] [address] [id number] [address] [place] [address], [place] [address] September, [facility] [address] [id number] [address] [place] [address], [place] [address] Aug, [facility] [address] [id number] [address] [place] [address], [place] [address] Aug, [facility] [address] [id number] [address] [place] [address], [place] [address] Aug, [facility] [address] [id number] [address] [place] [address], [place] [address] Aug, [facility] [address] [id number] [address] [place] [address], [place] [address] Aug, [facility] [address] [id number] [address] [place] [address], [place] [address] Aug, [facility] [address] [id number] [address] [place] [address], [place] [address] 10 Aug, 2013 [facility] [address] [id number] [address] [place] [address], [place] [address] 28 Jul, 2013 [facility] [address] [id number] [facility] [address] 28 Jul, 2013 [facility] [address] [id number] [address] [place] [address], [place] [address] 28 Jul, 2013 [facility] [address] [id number] [address] [place] [address], [place] [address] 28 Jul, 2013 [facility] [address] [id number] [address] [place] [address], [place] [address] 19 Jul, 2013 [facility] [address] [id number] [address] [place] [address], [place] [address] 19 Jul, 2013 [facility] [address] [id number] [address] [place] [address], [place] [address] 18 Jul, 2013 [facility] [address] [id number] [address] [place] [address], [place] [address] 18 Jul, 2013 [facility] [address] [id number] [address] [place] [address], [place] [address] 18 Jul, 2013 [facility] [address] [id number] [address] [place] [address], [place] [address] 18 Jul, 2013 [facility] [address] [id number] [address] [place] [address], [place] [address] 18 Jul, 2013 [facility] [address] [id number] [address] [place] [address], [place] [address] 18 Jul, 2013 [facility] [address] [id number] [address] [place] [address], [place] [address] 14 Jul, 2013 [facility] [address] [id number] [address] [place] [address], [place] [address] 14 Jul, 2013 [facility] [address] [id number] [address] [place] [address], [place] [address] 11 Jul, 2013 [facility] [address] [id number] [facility] [address] 11 Jul, 2013 [facility] [address] [id number] [facility] [address] 11 Jul, 2013 [facility] [address] [id number] [address] [place] [address], [place] [address] Jul, [facility] [address] [id number] [address] [place] [address], [place] [address] Jun, [facility] [address] [id number] [address] [place] [address], [place] [address] 31 Jun, 2013 [facility] [address] [id number] [address] [place] [address], [place] [address] 15 Jun, 2013 [facility] [address] [id number] [address] [place] [address], [place] [address] 15 Jun, 2013 [facility] [address] [id number] [address] [place] [address], [place] [address] 14 Jun, 2013 [facility] [address] [id number] [address] [place] [address], [place] [address] 14 Jun, 2013 [facility] [address] [id number] [address] [place] [address], [place] [address] 14 Jun, 2013 [facility] [address] [id number] [address] [place] [address], [place] [address] 14 Jun, 2013 [facility] [address] [id number] [address] [place] [address], [place] [address] 14 Jun, 2013 [facility] [address] [id number] [address] [place] [address], [place] [address] Jun, [facility] [address] [id number] [address] [place] [address], [place] [address] May, [facility] [address] [id number] [address] [place] [address], [place] [address] May, [facility] [address] [id number] [address] [place] [address], [place] [address] 26 May, 2012 [facility] [address] [id number] [address] [place] [address], [place] [address] 19 May, 2013 [facility] [address] [id number] [address] [place] [address], [place] [address] 19 May, 2013 [facility] [address] [id number] [address] [place] [address], [place] [address] 16 May, 2013 [facility] [address] [id number] [address] [place] [address], [place] [address] 16 May, 2013 [facility] [address] [id number] [address] [place] [address], [place] [address] 16 May, 2013 [facility] [address] [id number] [address] [place] [address], [place] [address] 16 May, 2013 [facility] [address] [id number] [address] [place] [address], [place] [address] 13 May, 2013 [facility] [address] [id number] [address] [place] [address], [place] [address] 13 May, 2013 [facility] [address] [id number] [address] [place] [address], [place] [address] 11 May, 2013 [facility] [address] [id number] [address] [place] [address], [place] [address] 20 Apr, 2013 [facility] [address] [id number] [address] [place] [address], [place] [address] 18 Apr, 2013 [facility] [address] [id number] [address] [place] [address], [place] [address] 18 Apr, 2013 [facility] [address] [id number] [address] [place] [address], [place] [address] 13 Apr, 2013 [facility] [address] [id number] [address] [place] [address], [place] [address] 13 Apr, 2013 [facility] [address] [id number] [address] [place] [address] 08 Apr, 2013 [facility] [address] [id number] [address] [place] [address], [place] [address] 08 Apr, 2013 [facility] [address] [id number] [address] [place] [address], [place] [address] Apr, [facility] [address] [id number] [address] [place] [address], [place] [address] Apr, [facility] [address] [id number] [address] [place] [address], [place] [address] Apr, [facility] [address] [id number] [address] [place] [address], [place] [address] Apr, [facility] [address] [id number] [address] [place] [address], [place] [address] Mar, [facility] [address] [id number] [address] [place] [address], [place] [address] Mar, [facility] [address] [id number] [address] [place] [address], [place] [address] Mar, [facility] [address] [id number] [address] [place] [address], [place] [address] Mar, [facility] [address] [id number] [address] [place] [address], [place] [address] Mar, [facility] [address] [id number] [address] [place] [address], [place] [address] Mar, [facility] [address] [id number] [address] [place] [address] Mar, [facility] [address] [id number] [address] [place] [address], [place] [address] 18 Mar, 2013 [facility] [address] [id number] [address] [place] [address], [place] [address] 18 Mar, 2013 [facility] [address] [id number] [address] [place] [address] 15 Mar, 2013 [facility] [address] [id number] [address] [place] [address] Mar, [facility] [address] [id number] [address] [place] [address], [place] [address] Mar, [facility] [address] [id number] [address] [place] [address], [place] [address] Jan, [facility] [address] [id number] [address] [place] [address], [place] [address] Jan, [facility] [address] [id number] [address] [place] [address], [place] [address] Jan, [facility] [address] [id number] [address] [place] [address], [place] [address] Jan, [facility] [address] [id number] [address] [place] [address], [place] [address] Dec, [facility] [address] [id number] [address] [place] [address], [place] [address] Dec, [facility] [address] [id number] [address] [place] [address], [place] [address] Dec, [facility] [address] [id number] [address] [place] [address], [place] [address] Dec, [facility] [address] [id number] [address] [place] [address], [place] [address] Dec, [facility] [address] [id number] [address] [place] [address], [place] [address] Dec, [facility] [address] [id number] [address] [place] [address], [place] [address] Dec, [facility] [address] [id number] [address] [place] [address], [place] [address] Dec, [facility] [address] [id number] [address] [place] [address], [place] [address] Dec, [facility] [address] [id number] [address] [place] [address], [place] [address] Nov, [facility] [address] [id number] [facility] [address] Nov, [facility] [address] [id number] [address] [place] [address], [place] [address] Nov, [facility] [address] [id number] [address] [place] [address], [place] [address] Nov, [facility] [address] [id number] [address] [place] [address], [place] [address] Nov, [facility] [address] [id number] [address] [place] [address], [place] [address] Nov, [facility] [address] [id number] [address] [place] [address], [place] [address] Nov, [facility] [address] [id number] [address] [place] [address], [place] [address] Nov, [facility] [address] [id number] [address] [place] [address], [place] [address] Oct, [facility] [address] [id number] [address] [place] [address], [place] [address] Oct, [facility] [address] [id number] [address] [place] [address], [place] [address] Oct, [facility] [address] [id number] [address] [place] [address], [place] [address] Oct, [facility] [address] [id number] [address] [place] [address], [place] [address] Oct, [facility] [address] [id number] [address] [place] [address], [place] [address] Oct, [facility] [address] [id number] [address] [place] [address], [place] [address] Oct, [facility] [address] [id number] [address] [place] [address], [place] [address] Oct, [facility] [address] [id number] [address] [place] [address], [place] [address] Oct, [facility] [address] [id number] [address] [place] [address], [place] [address] 18 Oct, 2012 [facility] [address] [id number] [address] [place] [address], [place] [address] 17 Oct, 2012 [facility] [address] [id number] [address] [place] [address], [place] [address] 14 Oct, 2012 [facility] [address] [id number] [address] [place] [address], [place] [address] 07 Oct, 2012 [facility] [address] [id number] [address] [place] [address], [place] [address] September, [facility] [address] [id number] [address] [place] [address], [place] [address] September, [facility] [address] [id number] [address] [place] [address], [place] [address] September, [facility] [address] [id number] [address] [place] [address], [place] [address] Aug, [facility] [address] [id number] [address] [place] [address], [place] [address] 24 Aug, 2012 [facility] [address] [id number] [address] [place] [address], [place] [address] Aug, [facility] [address] [id number] [address] [place] [address], [place] [address] Aug, [facility] [address] [id number] [address] [place] [address], [place] [address] 18 Aug, 2012 [facility] [address] [id number] [address] [place] [address], [place] [address] 08 Aug, 2012 [facility] [address] [id number] [address] [place] [address], [place] [address] 05 Aug, 2012 [facility] [address] [id number] [address] [place] [address], [place] [address] Jul, [facility] [address] [id number] [address] [place] [address] Jul, [facility] [address] [id number] [address] [place] [address], [place] [address] Jul, [facility] [address] [id number] [address] [place] [address], [place] [address] Jul, [facility] [address] [id number] [address] [place] [address], [place] [address] Jul, [facility] [address] [id number] [address] [place] [address], [place] [address] Jul, [facility] [address] [id number] [address] [place] [address], [place] [address] Jul, [facility] [address] [id number] [address] [place] [address], [place] [address] Jul, [facility] [address] [id number] [address] [place] [address], [place] [address] Jul, [facility] [address] [id number] [address] [place] [address], [place] [address] Jul, [facility] [address] [id number] [address] [place] [address], [place] [address] Jul, [facility] [address] [id number] [address] [place] [address], [place] [address] Jul, [facility] [address] [id number] [address] [place] [address], [place] [address] Jul, [facility] [address] [id number] [address] [place] [address], [place] [address] Jun, [facility] [address] [id number] [address] [place] [address], [place] [address] Jun, [facility] [address] [id number] [address] [place] [address], [place] [address] Jun, [facility] [address] [id number] [address] [place] [address], [place] [address] Jun, [facility] [address] [id number] [address] [place] [address], [place] [address] 15 Jun, 2012 [facility] [address] [id number] [address] [place] [address], [place] [address] 14 Jun, 2012 [facility] [address] [id number] [address] [place] [address], [place] [address] 08 Jun, 2012 [facility] [address] [id number] [address] [place] [address], [place] [address] May, [facility] [address] [id number] [address] [place] [address], [place] [address] May, [facility] [address] [id number] [address] [place] [address], [place] [address] May, [facility] [address] [id number] [address] [place] [address], [place] [address] May, [facility] [address] [id number] [address] [place] [address], [place] [address] May, [facility] [address] [id number] [address] [place] [address], [place] [address] May, [facility] [address] [id number] [address] [place] [address], [place] [address] May, [facility] [address] [id number] [address] [place] [address], [place] [address] May, [facility] [address] [id number] [address] [place] [address], [place] [address] May, [facility] [address] [id number] [address] [place] [address], [place] [address] May, [facility] [address] [id number] [address] [place] [address], [place] [address] Apr, [facility] [facility] [address] [id number] [address] [place] [address], [place] [address] 30 Apr, 2012 [facility] [address] [id number] [address] [place] [id number] Apr, [facility] [address] [id number] [address] [place] [address], [place] [address] Apr, [facility] [address] [id number] [address] [place] [id number] Apr, [facility] [address] [id number] [address] [place] [address], [place] [address] Apr, [facility] [address] [id number] [address] [place] [id number] Apr, [facility] [address] [id number] [address] [place] [address], [place] [address] Apr, [facility] [address] [id number] [address] [place] [address], [place] [address] Apr, [facility] [address] [id number] [address] [place] [id number] Apr, [facility] [address] [id number] [address] [place] [id number] Apr, [facility] [address] [id number] [address] [place] [id number] Apr, [facility] [address] [id number] [address] [place] [id number] Mar, [facility] [address] [id number] [address] [place] [id number] Mar, [facility] [address] [id number] [address] [place] [id number] Mar, [facility] [address] [id number] [address] [place] [id number] Mar, [facility] [address] [id number] [address] [place] [id number] Mar, [facility] [address] [id number] [address] [place] [id number] Mar, [facility] [address] [id number] [address] [place] [address], [place] [address] 30 Mar, 2012 [facility] [address] [id number] [address] [place] [address], [place] [address] 30 Mar, 2012 [facility] [address] [id number] [address] [place] [address], [place] [address] Mar, [facility] [address] [id number] [address] [place] [address], [place] [address] Mar, [facility] [address] [id number] [address] [place] [address], [place] [address] Mar, [facility] [address] [id number] [address] [place] [address], [place] [address] Mar, [facility] [address] [id number] [address] [place] [address], [place] [address] Mar, [facility] [address] [id number] [address] [place] [address], [place] [address] Mar, [facility] [address] [id number] [address] [place] [address], [place] [address] Mar, [facility] [address] [id number] [address] [place] [address], [place] [address] Mar, [facility] [address] [id number] [address] [place] [address], [place] [address] 25 Jan, 2012 [facility] [address] [id number] [address] [place] [address], [place] [address] 24 Sep, 2011 [facility] [address] [id number] [address] [place] [address], [place] [address] 22 Sep2011 [facility] [address] [id number] [address] [place] [address], [place] [address] 22 Sep, 2011 [facility] [address] [id number] [address] [place] [address], [place] [address] 21 Sep, 2011 [facility] [address] [id number] [address] [place] [address], [place] [address] 18 Jan, 2012 [facility] [address] [id number] [address] [place] [address], [place] [address] 14 Jan, 2012 [facility] [address] [id number] [address] [place] [address], [place] [address] 07 Jan, 2012 [facility] [address] [id number] [address] [place] [address], [place] [address] 15 Dec, 2011 [facility] [address] [id number] [address] [place] [address], [place] [address] 10 Dec, 2011 [facility] [address] [id number] [address] [place] [address], [place] [address] Dec, [facility] [address] [id number] [address] [place] [address], [place] [address] Dec, [facility] [address] [id number] [address] [place] [address], [place] [address] Dec, [facility] [address] [id number] [address] [place] [address], [place] [address] Dec, [facility] [address] [id number] [address] [place] [address], [place] [address] Dec, [facility] [address] [id number] [address] [place] [address], [place] [address] Nov, [facility] [address] [id number] [address] [place] [address], [place] [address] Oct, [facility] [address] [id number] [address] [place] [address], [place] [address] 05 Aug, 2011 [facility] [address] [id number] [address] [place] [address], [place] [address] Jul, [facility] [address] [id number] [address] [place] [address], [place] [address] 19 Jul, 2011 [facility] [address] [id number] [address] [place] [address], [place] [address] 16 Jul, 2011 [facility] [address] [id number] [address] [place] [address], [place] [address] 14 Jul, 2011 [facility] [address] [id number] [address] [place] [address], [place] [address] 07 Jul, 2011 [facility] [address] [id number] [address] [place] [address], [place] [address] 02 Jul, 2011 [facility] [address] [id number] [address] [place] [address], [place] [address] 21 Jul, 2011 [facility] [address] [id number] [address] [place] [address], [place] [address] 15 Jul, 2011 [facility] [address] [id number] [address] [place] [address], [place] [address] 13 Jul, 2011 [facility] [address] [id number] [address] [place] [address], [place] [address] 03 Jul, 2011 [facility] [address] [id number] [address] [place] [address], [place] [address] Jul, [facility] [address] [id number] [address] [place] [address], [place] [address] Jun, [facility] [address] [id number] [address] [place] [address], [place] [address] Jun, [facility] [address] [id number] [address] [place] [address], [place] [address] Jun, [facility] [address] [id number] [address] [place] [address], [place] [address] Jun, [facility] [address] [id number] [address] [place] [address], [place] [address] Jun, [facility] [address] [id number] [address] [place] [address], [place] [address] Jun, [facility] [address] [id number] [address] [place] [address], [place] [address] Jun, [facility] [address] [id number] [address] [place] [address], [place] [address] May, [facility] [address] [id number] [address] [place] [address], [place] [address] May, [facility] [address] [id number] [address] [place] [address], [place] [address] May, [facility] [address] [id number] [address] [place] [address], [place] [address] May, [facility] [address] [id number] [address] [place] [address], [place] [address] May, [facility] [address] [id number] [address] [place] [address], [place] [address] May, [facility] [address] [id number] [address] [place] [address], [place] [address] May, [facility] [address] [id number] [address] [place] [address], [place] [address] May, [facility] [address] [id number] [address] [place] [address], [place] [address] May, [facility] [address] [id number] [address] [place] [address], [place] [address] May, [facility] [address] [id number] [address] [place] [address], [place] [address] 15 Apr, 2011 [facility] [address] [id number] [address] [place] [address], [place] [address] 15 Apr, 2011 [facility] [address] [id number] [address] [place] [address], [place] [address] Apr, [facility] [address] [id number] [address] [place] [address], [place] [address] Apr, [facility] [address] [id number] [address] [place] [address], [place] [address] Mar, [facility] [address] [id number] [address] [place] [address], [place] [address] 24 Mar, 2011 [facility] [address] [id number] [address] [place] [id number] Mar, [facility] [address] [facility] [id number] [address] [place] [address] Mar, IMMUNIZATIONS No Known Immunizations SOCIAL HISTORY [...]
--- OUTSIDE RECORDS SUMMARY | 2020-01-03 18:14 | XMS REPORT ---
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 Name Role Phone ITZ JUNIOR Unavailable PROBLEMS Type Condition ICD9-CM Code [id number] Code Onset Dates Condition S tatus SNOMED Code Problem Major depressive disorder in partial remission F32 .4 Active [id number] Problem FRANCIS (generalized anxiety disorder) F41.1 Active 59614589 Problem Conversion disorder (or hysterical neurosis, conversion ty pe) F44.9 Active 10184227 Problem Thoracic disc herniation M51.24 Activ e 734583285 Problem Slow transit constipation K59.01 Acti ve 02305017 Problem Constipation, unspecified constipation type K59.00 Active 20643216 Problem Mild episode of recurrent major depressive disorder F33.0 Active 079417003 Problem High blood pressure I10 Active 81450468 Problem Paroxysmal tachycardia I47.9 Active 50401946 Problem Nonadherence to medication Z91.14 Act vivian 906776399 Problem Seizure disorder G40.909 Active 128 103468 Problem Restless leg syndrome G25.81 Active 95388714 Problem Other chronic pain G89.29 Active 8 8540392 Problem Mild intermittent asthma without complication J45. 20 Active 123902040 Problem Obesity (BMI 30.0-34.9) E66.9 Active [id number] ALLERGIES No Information ENCOUNTERS Encounter Location Date Diagnosis [facility] [address] [facility] [id number] [address] [place] [phone] Aug, [facility] [address] [place] [id number] [address] [place] [phone] Aug, Major depressive disorder in partial remission F32.4 ; FRANCIS (generalized anxiety disorder) F41.1 ; Restless leg syndrome G25.81 and Nonadherence to medication Z91.14 [facility] [address] [facility] [id number] [address] [place] [phone] Aug, [facility] [address] [id number] [address] [place] [address] Jul, [facility] [address] [id number] [address] [place] [address] Jul, [facility] [address] [id number] [address] [place] [address] Jul, Major depressive disorder in partial remission F32.4 ; FRANCIS (generalized anxiety disorder) F41.1 ; Restless leg syndrome G25.81 and High blood pressure I10 [facility] [address] [id number] [address] [place] [address] Jul, [facility] [address] [id number] [address] [place] [address] Jul, [facility] [address] [id number] [address] [place] [address] Jun, [facility] [address] [id number] [address] [place] [address] May, [facility] [address] [id number] [address] [place] [phone] Apr, [facility] [address] [id number] [address] [place] [address] Apr, [facility] [address] [id number] [address] [place] [address] Mar, [facility] [address] [id number] [address] [place] [address] Mar, Major depressive disorder in partial remission F32.4 ; FRANCIS (generalized anxiety disorder) F41.1 and Restless leg syndrome G25.81 [facility] [address] [id number] [address] [place] [address] Mar, Obesity (BMI 30.0-34.9) E66. 9 [facility] [address] [id number] [address] [place] [address] Jan, [facility] [address] [facility] [id number] [address] [place] [address] Jan, Burn T30.0 [facility] [address] [facility] [id number] [address] [place] [address] Dec, [facility] [address] [facility] [id number] [address] [place] [phone] Nov, [facility] [address] [facility] [id number] [address] [place] [address] Nov, [facility] [id number] [place] [id number] Nov, Dental examination Z01.20 [facility] [address] [facility] [id number] [address] [place] [address] September, [facility] [address] [id number] September, Decay, teeth K02.9 and Denta l examination Z01.20 [facility] [address] [place] [address] [id number] September, Dental examination Z01.20 [facility] [address] [place] [id number] [address] [place] [phone] September, FRANCIS (generalized anxiety dis order) F41.1 ; Major depressive disorder in partial remission F32.4 and Restless leg syndrome G25.81 [facility] [address] [facility] [id number] [address] [place] [address] Aug, [facility] [address] [facility] [id number] [address] [place] [address] Jul, [facility] [address] [facility] [id number] [address] [place] [address] Jul, Encounter to discuss test re sults Z71.2 [facility] [address] [facility] [id number] [address] [place] [address] Jul, Pelvic pain R10.2 ; Screenin g for breast cancer Z12.31 and Obesity (BMI 30.0-34.9) E66.9 [facility] [address] [id number] [address] [place] [address] Jul, Mild intermittent asthma wit hout complication J45.20 [facility] [address] [facility] [id number] [address] [place] [address] Jul, Major depressive disorder in partial remission F32.4 and FRANCIS (generalized anxiety disorder) F41.1 [facility] [address] [id number] [address] [place] [address] Jul, [place] [address] [id number] [address] [place] [address] Jun, [place] [address] [facility] [id number] [address] [place] [address] May, Major depressive disorder in partial remission F32.4 ; FRANCIS (generalized anxiety disorder) F41.1 and Restless leg syndrome G25.81 [facility] [address] [id number] [address] [place] [address] Apr, [facility] [address] [facility] [id number] [address] [place] [address] Mar, [facility] [address] [id number] [address] [place] [address] Jan, Pain in thoracic spine M54.6 and Other chronic pain G89.29 [facility] [address] [id number] [address] [place] [address] Jan, [facility] [address] [facility] [id number] [address] [place] [phone] 11 Jan, 2018 Mild episode of recurrent ma saray depressive disorder F33.0 ; FRANCIS (generalized anxiety disorder) F41.1 and Restless leg syndrome G25.81 [facility] [address] [facility] [id number] [address] [place] [address] Dec, [facility] [address] [facility] [id number] [address] [place] [address] Dec, Hospital discharge follow-up Z09 [facility] [address] [facility] [id number] [address] [place] [address] Nov, [facility] [address] [facility] [id number] [address] [place] [address] Nov, [facility] [address] [facility] [id number] [address] [place] [address] September, [facility] [address] [facility] [id number] [address] [place] [address] September, [facility] [address] [place] [id number] [address] [place] [phone] September, Major depressive disorder in partial remission F32.4 ; FRANCIS (generalized anxiety disorder) F41.1 and Restless leg syndrome G25.81 [facility] [address] [facility] [id number] [address] [place] [address] September, [facility] [address] [facility] [id number] [address] [place] [phone] Jul, [facility] [address] [place] [place] [id number] [address] [place] [address] Jul, Dorsalgia, unspecified M54.9 [facility] [address] [facility] [id number] [address] [place] [address] Jul, Mild episode of recurrent ma saray depressive disorder F33.0 and FRANCIS (generalized anxiety disorder) F41.1 [facility] [address] [facility] [id number] [address] [place] [address] May, [facility] [address] [facility] [id number] [address] [place] [address] May, Dysuria R30.0 and Acute cyst itis with hematuria N30.01 [facility] [address] [place] [id number] [address] [place] [address] Apr, [facility] [address] [id number] [address] [place] [address] Apr, Major depressive disorder in partial remission F32.4 and FRANCIS (generalized anxiety disorder) F41.1 [facility] [address] [id number] [address] [place] [address] Mar, Paroxysmal tachycardia I47.9 [facility] [address] [id number] [address] [place] [address] Mar, Paroxysmal tachycardia I47.9 and Pain of left lower extremity M79.605 [place] [address] [id number] [address] [place] [address] Mar, FRANCIS (generalized anxiety dis order) F41.1 and Major depressive disorder in partial remission F32.4 [facility] [address] [id number] [address] [place] [address] Jan, [facility] [address] [id number] [address] [place] [id number] 14 Jan, 2017 [facility] [address] [id number] [address] [place] [address] Jan, [facility] [address] [id number] [address] [place] [address] Dec, Constipation, unspecified co nstipation type K59.00 [facility] [address] [id number] [address] [place] [address] Dec, [facility] [address] [id number] [address] [place] [address] Nov, [facility] [address] [id number] [address] [place] [address] Nov, Major depressive disorder in partial remission F32.4 and FRANCIS (generalized anxiety disorder) F41.1 [facility] [address] [id number] [address] [place] [address] Oct, Abdominal pain R10.9 and Slo w transit constipation K59.01 [facility] [address] [facility] [id number] [address] [place] [address] Aug, Major depressive disorder in partial remission F32.4 ; FRANCIS (generalized anxiety disorder) F41.1 ; Conversion disorder (or hysterical neurosis, conversion type) F44.9 ; Dorsalgia, unspecified M54.9 and Long-term use of high-risk medication Z79.899 [place] [address] [facility] [id number] [address] [place] [address] Aug, [place] [address] [place] [id number] [address] [place] [address] Jul, Paroxysmal tachycardia I47.9 [place] [address] [facility] [id number] [address] [place] [address] Jul, Paroxysmal tachycardia I47.9 [place] [address] [place] [id number] [address] [place] [address] Jun, [place] [address] [facility] [id number] [address] [place] [address] Jun, Major depressive disorder in partial remission F32.4 ; FRANCIS (generalized anxiety disorder) F41.1 and Conversion disorder (or hysterical neurosis, conversion type) F44.9 [facility] [address] [id number] [address] [place] [phone] May, Pelvic pain R10.2 [facility] [address] [facility] [id number] [address] [place] [phone] 30 Apr, 2016 Gastroenteritis K52.9 [facility] [address] [facility] [id number] [address] [place] [address] Apr, Blood in urine R31.9 and Acu te cystitis with hematuria N30.01 [facility] [address] [facility] [id number] [address] [place] [address] Apr, Major depressive disorder in partial remission F32.4 ; FRANCIS (generalized anxiety disorder) F41.1 and Conversion disorder (or hysterical neurosis, conversion type) F44.9 [facility] [address] [id number] [address] [place] [address] Apr, [facility] [address] [facility] [id number] [address] [place] [address] Apr, Abnormal mammogram R92.8 [facility] [address] [facility] [id number] [address] [place] [phone] Mar, [facility] [address] [facility] [id number] [address] [place] [address] Mar, Gastroenteritis K52.9 and Se izure disorder G40.909 [facility] [address] [facility] [id number] [address] [place] [address] Dec, [facility] [address] [facility] [id number] [address] [place] [address] Dec, Other headache syndrome G44. 89 [facility] [address] [facility] [id number] [address] [place] [address] Dec, [facility] [address] [facility] [id number] [address] [place] [address] Dec, Thoracic disc herniation M51 .24 [facility] [address] [facility] [id number] [address] [place] [address] Dec, [facility] [address] [facility] [id number] [address] [place] [phone] Nov, Major depressive disorder in partial remission F32.4 and FRANCIS (generalized anxiety disorder) F41.1 [facility] [address] [facility] [id number] [address] [place] [phone] Nov, [facility] [address] [facility] [id number] [address] [place] [address] Nov, Dorsalgia, unspecified M54.9 [facility] [address] [facility] [id number] [address] [place] [address] Oct, [facility] [address] [id number] [address] [place] [address] September, [facility] [address] [id number] [address] [place] [address] Aug, [facility] [address] [id number] [address] [place] [address] Aug, Major depressive disorder in partial remission F32.4 and FRANCIS (generalized anxiety disorder) F41.1 [facility] [address] [id number] [address] [place] [address] Aug, [facility] [address] [id number] [address] [place] [address] Jul, Abnormal mammogram R92.8 [facility] [address] [id number] [address] [place] [address] Jul, [facility] [address] [id number] [address] [place] [address] Jul, [facility] [address] [id number] [address] [place] [address] Jul, [facility] [address] [id number] [address] [place] [address] Jul, [facility] [address] [id number] [address] [place] [address] Jul, [facility] [address] [id number] [address] [place] [address] Jul, [facility] [address] [id number] [address] [place] [phone] Jun, Major depressive disorder in partial remission F32.4 and FRANCIS (generalized anxiety disorder) F41.1 [facility] [address] [id number] [address] [place] [phone] Jun, [facility] [address] [id number] [address] [place] [address] May, [facility] [address] [id number] [address] [place] [phone] Apr, [facility] [address] [id number] [address] [place] [address] Mar, Major depressive disorder, r ecurrent episode, moderate F33.1 ; PTSD (post-traumatic stress disorder) F43.10 and FRANCIS (generalized anxiety disorder) F41.1 [facility] [address] [id number] [address] [place] [address] Mar, [facility] [address] [id number] [address] [place] [address] Mar, [facility] [address] [id number] [address] [place] [address] Mar, [facility] [address] [id number] [address] [place] [address] Mar, [facility] [address] [id number] [address] [place] [address] Jan, [facility] [address] [id number] [address] [place] [address] 15 Jan, 2015 [facility] [address] [id number] [address] [place] [phone] 15 Jan, 2015 [facility] [address] [id number] [address] [place] [address] 14 Jan, 2015 Thoracic disc herniation 722 .11 [facility] [address] [id number] [address] [place] [address] Dec, [facility] [address] [id number] [address] [place] [address] Dec, [facility] [address] [id number] [address] [place] [address] Dec, [facility] [address] [id number] [address] [place] [address] Nov, [facility] [address] [id number] [address] [place] [address] 14 Nov, 2014 Generalized anxiety disorder 300.02 ; Posttraumatic stress disorder 309.81 and Major depressive disorder, recurrent episode, moderate 296.32 [facility] [address] [id number] [address] [place] [address] Nov, [facility] [address] [id number] [address] [place] [address] Nov, [facility] [address] [id number] [address] [place] [phone] Oct, [facility] [address] [id number] [address] [place] [address] Oct, [facility] [address] [id number] [address] [place] [address] Oct, [facility] [address] [id number] [address] [place] [address] September, [facility] [address] [id number] [address] [place] [address] September, [facility] [address] [id number] [address] [place] [address] Aug, [facility] [address] [id number] [address] [place] [phone] Aug, [facility] [address] [id number] [address] [place] [phone] Jul, [facility] [address] [id number] [address] [place] [phone] Jul, [facility] [address] [id number] [address] [place] [phone] Jul, [facility] [address] [id number] [address] [place] [phone] Jul, [facility] [address] [id number] [address] [place] [phone] 16 Jul, 2014 [facility] [address] [id number] [address] [place] [address], [place] [address] 16 Jul, 2014 [facility] [address] [id number] [address] [place] [address], [place] [address] Jul, [facility] [address] [id number] [address] [place] [address], [place] [address] Jul, [facility] [address] [id number] [address] [place] [address], [place] [address] Jul, [facility] [address] [id number] [address] [place] [address], [place] [address] Jul, [facility] [address] [id number] [address] [place] [address], [place] [address] Jun, [facility] [address] [id number] [address] [place] [address], [place] [address] Jun, [facility] [address] [id number] [address] [place] [address], [place] [address] Jun, [facility] [address] [id number] [address] [place] [address], [place] [address] May, [facility] [address] [id number] [address] [place] [address], [place] [address] Apr, [facility] [address] [id number] [address] [place] [address], [place] [address] Apr, [facility] [address] [id number] [address] [place] [address], [place] [address] Apr, [facility] [address] [id number] [address] [place] [address], [place] [address] Apr, [facility] [address] [id number] [address] [place] [address], [place] [address] Apr, [facility] [address] [id number] [address] [place] [address], [place] [address] Apr, [facility] [address] [id number] [address] [place] [address] [address] Apr, [facility] [address] [id number] [address] [place] [address], [place] [address] Apr, [facility] [address] [id number] [address] [place] [address], [place] [address] Mar, [facility] [address] [id number] [address] [place] [address], [place] [address] Mar, [facility] [address] [id number] [address] [place] [address], [place] [address] Mar, [facility] [address] [id number] [address] [place] [address], [place] [address] Mar, [facility] [address] [id number] [address] [place] [address], [place] [address] Mar, [facility] [address] [id number] [address] [place] [address], [place] [address] Mar, [facility] [address] [id number] [address] [place] [address], [place] [address] Mar, [facility] [address] [id number] [address] [place] [address], [place] [address] Mar, [facility] [address] [id number] [address] [place] [address], [place] [address] Mar, [facility] [address] [id number] [address] [place] [address], [place] [address] Mar, [facility] [address] [id number] [address] [place] [id number] 17 Mar, 2014 [facility] [address] [id number] [address] [place] [address], [place] [address] 14 Mar, 2014 [facility] [address] [id number] [address] [place] [address], [place] [address] Mar, [facility] [address] [id number] [address] [place] [address], [place] [address] Mar, [facility] [address] [id number] [address] [place] [address], [place] [address] 07 Oct, 2013 [facility] [address] [id number] [address] [place] [address], [place] [address] 06 Mar, 2013 [facility] [address] [id number] [address] [place] [address], [place] [address] 06 Oct, 2013 [facility] [address] [id number] [address] [place] [address], [place] [address] 19 Sep, 2013 [facility] [address] [id number] [address] [place] [address], [place] [address] 19 Sep, 2013 [facility] [address] [id number] [address] [place] [address], [place] [address] 09 Sep, 2013 [facility] [address] [id number] [address] [place] [address], [place] [address] 09 Sep, 2013 [facility] [address] [id number] [address] [place] [address], [place] [address] 05 Sep, 2013 [facility] [address] [id number] [address] [place] [address], [place] [address] 05 Sep, 2013 [facility] [address] [id number] [address] [place] [address], [place] [address] 05 Sep, 2013 [facility] [address] [id number] [address] [place] [address], [place] [address] 05 Sep, 2013 [facility] [address] [id number] [address] [place] [address], [place] [address] 03 Sep, 2013 [facility] [address] [id number] [address] [place] [address], [place] [address] 02 Sep, 2013 [facility] [address] [id number] [address] [place] [address], [place] [address] 02 Sep, 2013 [facility] [address] [id number] [address] [place] [address], [place] [address] 02 Sep, 2013 [facility] [address] [id number] [address] [place] [address], [place] [address] Jan, [facility] [address] [id number] [address] [place] [address], [place] [address] Dec, [facility] [address] [id number] [address] [place] [address], [place] [address] Dec, [facility] [address] [id number] [address] [place] [address], [place] [address] Dec, [facility] [address] [id number] [address] [place] [address], [place] [address] Dec, [facility] [address] [id number] [address] [place] [address], [place] [address] Dec, [facility] [address] [id number] [address] [place] [address], [place] [address] Dec, [facility] [id number] Dec, [facility] [id number] Dec, [facility] [address] [id number] [address] [place] [address], [place] [address] Dec, [facility] [address] [id number] [address] [place] [address], [place] [address] Dec, [facility] [address] [id number] [address] [place] [address], [place] [address] Dec, [facility] [address] [id number] [address] [place] [address], [place] [address] Dec, [facility] [address] [id number] [address] [place] [address], [place] [address] Nov, [facility] [address] [id number] [address] [place] [address], [place] [address] Nov, [facility] [address] [id number] [address] [place] [address], [place] [address] Nov, [facility] [address] [id number] [address] [place] [address], [place] [address] Nov, [facility] [address] [id number] [facility] [place] [address] Nov, [facility] [address] [id number] [facility] [place] [address] Nov, [facility] [address] [id number] [facility] [place] [address] Nov, [facility] [address] [id number] [facility] [place] [address] Nov, [facility] [address] [id number] [facility] [place] [address] Nov, [facility] [address] [id number] [address] [place] [address], [place] [address] Nov, [facility] [address] [id number] [address] [place] [address], [place] [address] Nov, [facility] [address] [id number] [address] [place] [address], [place] [address] Nov, [facility] [address] [id number] [address] [place] [address], [place] [address] Nov, [facility] [address] [id number] [address] [place] [address], [place] [address] Oct, [facility] [address] [id number] [address] [place] [address], [place] [address] Oct, [facility] [address] [id number] [address] [place] [address], [place] [address] Oct, [facility] [address] [id number] [address] [place] [address], [place] [address] Oct, [facility] [address] [id number] [address] [place] [address], [place] [address] Oct, [facility] [address] [id number] [address] [place] [address], [place] [address] Oct, [facility] [address] [id number] [address] [place] [address], [place] [address] Oct, [facility] [address] [id number] [facility] [place] [address] Oct, [facility] [address] [id number] [address] [place] [address], [place] [address] Oct, [facility] [address] [id number] [address] [place] [address], [place] [address] Oct, [facility] [address] [id number] [address] [place] [address], [place] [address] Oct, [facility] [address] [id number] [address] [place] [address], [place] [address] Oct, [facility] [address] [id number] [address] [place] [address], [place] [address] September, [facility] [address] [id number] [address] [place] [address], [place] [address] September, [facility] [address] [id number] [address] [place] [address], [place] [address] September, [facility] [address] [id number] [address] [place] [address], [place] [address] September, [facility] [address] [id number] [address] [place] [address], [place] [address] Aug, [facility] [address] [id number] [address] [place] [address], [place] [address] Aug, [facility] [address] [id number] [address] [place] [address], [place] [address] Aug, [facility] [address] [id number] [address] [place] [address], [place] [address] Aug, [facility] [address] [id number] [address] [place] [address], [place] [address] Aug, [facility] [address] [id number] [address] [place] [address], [place] [address] Aug, [facility] [address] [id number] [address] [place] [address], [place] [address] 10 Aug, 2013 [facility] [address] [id number] [address] [place] [address], [place] [address] 28 Jul, 2013 [facility] [address] [id number] [facility] [place] [address] 28 Jul, 2013 [facility] [address] [id number] [address] [place] [address], [place] [address] 28 Jul, 2013 [facility] [address] [id number] [address] [place] [address], [place] [address] 28 Jul, 2013 [facility] [address] [id number] [address] [place] [address], [place] [address] 19 Jul, 2013 [facility] [address] [id number] [address] [place] [address], [place] [address] 19 Jul, 2013 [facility] [address] [id number] [address] [place] [address], [place] [address] 18 Jul, 2013 [facility] [address] [id number] [address] [place] [address], [place] [address] 18 Jul, 2013 [facility] [address] [id number] [address] [place] [address], [place] [address] 18 Jul, 2013 [facility] [address] [id number] [address] [place] [address], [place] [address] 18 Jul, 2013 [facility] [address] [id number] [address] [place] [address], [place] [address] 18 Jul, 2013 [facility] [address] [id number] [address] [place] [address], [place] [address] 18 Jul, 2013 [facility] [address] [id number] [address] [place] [address], [place] [address] 14 Jul, 2013 [facility] [address] [id number] [address] [place] [address], [place] [address] 14 Jul, 2013 [facility] [address] [id number] [address] [place] [address], [place] [address] Jul, [facility] [address] [id number] [facility] [place] [address] Jul, [facility] [address] [id number] [address] [place] [address], [place] [address] 11 Jul, 2013 [facility] [address] [id number] [address] [place] [address], [place] [address] Jul, [facility] [address] [id number] [address] [place] [address], [place] [address] Jun, [facility] [address] [id number] [address] [place] [address], [place] [address] Jun, [facility] [address] [id number] [address] [place] [address], [place] [address] 15 Jun, 2013 [facility] [address] [id number] [address] [place] [address], [place] [address] Jun, [facility] [address] [id number] [address] [place] [address], [place] [address] 14 Jun, 2013 [facility] [address] [id number] [address] [place] [address], [place] [address] Jun, [facility] [address] [id number] [address] [place] [address], [place] [address] 14 Jun, 2013 [facility] [address] [id number] [address] [place] [address], [place] [address] 14 Jun, 2013 [facility] [address] [id number] [address] [place] [address], [place] [address] 14 Jun, 2013 [facility] [address] [id number] [address] [place] [address], [place] [address] Jun, [facility] [address] [id number] [address] [place] [address], [place] [address] May, [facility] [address] [id number] [address] [place] [address], [place] [address] May, [facility] [address] [id number] [address] [place] [address], [place] [address] 26 May, 2013 [facility] [address] [id number] [address] [place] [address], [place] [address] 19 May, 2013 [facility] [address] [id number] [address] [place] [address], [place] [address] 19 May, 2013 [facility] [address] [id number] [address] [place] [address], [place] [address] 16 May, 2013 [facility] [address] [id number] [address] [place] [address], [place] [address] 16 May, 2013 [facility] [address] [id number] [address] [place] [address], [place] [address] 16 May, 2013 [facility] [address] [id number] [address] [place] [address], [place] [address] 16 May, 2013 [facility] [address] [id number] [address] [place] [address], [place] [address] 13 May, 2013 [facility] [address] [id number] [address] [place] [address], [place] [address] 13 May, 2013 [facility] [address] [id number] [address] [place] [address], [place] [address] 11 May, 2013 [facility] [address] [id number] [address] [place] [address], [place] [address] 20 Apr, 2013 [facility] [address] [id number] [address] [place] [address], [place] [address] 18 Apr, 2013 [facility] [address] [id number] [address] [place] [address], [place] [address] 18 Apr, 2013 [facility] [address] [id number] [address] [place] [address], [place] [address] 13 Apr, 2013 [facility] [address] [id number] [address] [place] [address], [place] [address] 13 Apr, 2013 [facility] [address] [id number] [address] [place] [address], [place] [address] 08 Apr, 2013 [facility] [address] [id number] [address] [place] [address], [place] [address] 08 Apr, 2013 [facility] [address] [id number] [address] [place] [address], [place] [address] 07 Apr, 2013 [facility] [address] [id number] [address] [place] [address], [place] [address] 07 Apr, 2013 [facility] [address] [id number] [address] [place] [address], [place] [address] Apr, [facility] [address] [id number] [address] [place] [address], [place] [address] Apr, [facility] [address] [id number] [address] [place] [address], [place] [address] Mar, [facility] [address] [id number] [address] [place] [address], [place] [address] Mar, [facility] [address] [id number] [address] [place] [address] Mar, [facility] [address] [id number] [address] [place] [address], [place] [address] Mar, [facility] [address] [id number] [address] [place] [address] Mar, [facility] [address] [id number] [address] [place] [id number] Mar, [facility] [address] [id number] [address] [place] [address] Mar, [facility] [address] [id number] [address] [place] [address] 18 Mar, 2013 [facility] [address] [id number] [address] [place] [id number] 18 Mar, 2013 [facility] [address] [id number] [address] [place] [id number] 15 Mar, 2013 [facility] [address] [id number] [address] [place] [address] Mar, [facility] [address] [id number] [address] [place] [address], [place] [address] Mar, [facility] [address] [id number] [address] [place] [address], [place] [address] Jan, [facility] [address] [id number] [address] [place] [address], [place] [address] Jan, [facility] [address] [id number] [address] [place] [address], [place] [address] Jan, [facility] [address] [id number] [address] [place] [address], [place] [address] Jan, [facility] [address] [id number] [address] [place] [address], [place] [address] Dec, [facility] [address] [id number] [address] [place] [address], [place] [address] Dec, [facility] [address] [id number] [address] [place] [address], [place] [address] Dec, [facility] [address] [id number] [address] [place] [address], [place] [address] Dec, [facility] [address] [id number] [address] [place] [address], [place] [address] Dec, [facility] [address] [id number] [address] [place] [address], [place] [address] Dec, [facility] [address] [id number] [address] [place] [address], [place] [address] Dec, [facility] [address] [id number] [address] [place] [address], [place] [address] Dec, [facility] [address] [id number] [address] [place] [address], [place] [address] Dec, [facility] [address] [id number] [address] [place] [address], [place] [address] Nov, [facility] [address] [id number] [facility] [place] [address] Nov, [facility] [address] [id number] [address] [place] [address], [place] [address] Nov, [facility] [address] [id number] [address] [place] [address], [place] [address] Nov, [facility] [address] [id number] [address] [place] [address], [place] [address] Nov, [facility] [address] [id number] [address] [place] [address], [place] [address] Nov, [facility] [address] [id number] [address] [place] [address], [place] [address] Nov, [facility] [address] [id number] [address] [place] [address], [place] [address] Nov, [facility] [address] [id number] [address] [place] [address], [place] [address] Oct, [facility] [address] [id number] [address] [place] [address], [place] [address] Oct, [facility] [address] [id number] [address] [place] [address], [place] [address] Oct, [facility] [address] [id number] [address] [place] [address], [place] [address] Oct, [facility] [address] [id number] [address] [place] [address], [place] [address] Oct, [facility] [address] [id number] [address] [place] [address], [place] [address] Oct, [facility] [address] [id number] [address] [place] [address], [place] [address] Oct, [facility] [address] [id number] [address] [place] [address], [place] [address] Oct, [facility] [address] [id number] [address] [place] [address], [place] [address] Oct, [facility] [address] [id number] [address] [place] [address], [place] [address] 18 Oct, 2012 [facility] [address] [id number] [address] [place] [address], [place] [address] 17 Oct, 2012 [facility] [address] [id number] [address] [place] [address], [place] [address] 14 Oct, 2012 [facility] [address] [id number] [address] [place] [address], [place] [address] 07 Oct, 2012 [facility] [address] [id number] [address] [place] [address], [place] [address] 30 Sep, 2012 [facility] [address] [id number] [address] [place] [address], [place] [address] September, [facility] [address] [id number] [address] [place] [address], [place] [address] September, [facility] [address] [id number] [address] [place] [address], [place] [address] 25 Aug, 2012 [facility] [address] [id number] [address] [place] [address], [place] [address] 24 Aug, 2012 [facility] [address] [id number] [address] [place] [address], [place] [address] 18 Aug, 2012 [facility] [address] [id number] [address] [place] [address], [place] [address] Aug, [facility] [address] [id number] [address] [place] [address], [place] [address] 18 Aug, 2012 [facility] [address] [id number] [address] [place] [address], [place] [address] 08 Aug, 2012 [facility] [address] [id number] [address] [place] [address], [place] [address] 05 Aug, 2012 [facility] [address] [id number] [address] [place] [address], [place] [address] Jul, [facility] [address] [id number] [address] [place] [address], [place] [address] Jul, [facility] [address] [id number] [address] [place] [address], [place] [address] Jul, [facility] [address] [id number] [address] [place] [address], [place] [address] Jul, [facility] [address] [id number] [address] [place] [address], [place] [address] Jul, [facility] [address] [id number] [address] [place] [address], [place] [address] Jul, [facility] [address] [id number] [address] [place] [address], [place] [address] Jul, [facility] [address] [id number] [address] [place] [address], [place] [address] Jul, [facility] [address] [id number] [address] [place] [address], [place] [address] Jul, [facility] [address] [id number] [address] [place] [address], [place] [address] Jul, [facility] [address] [id number] [address] [place] [address], [place] [address] Jul, [facility] [address] [id number] [address] [place] [address], [place] [address] Jul, [facility] [address] [id number] [address] [place] [address], [place] [address] Jul, [facility] [address] [id number] [address] [place] [address], [place] [address] Jun, [facility] [address] [id number] [address] [place] [address], [place] [address] Jun, [facility] [address] [id number] [address] [place] [address], [place] [address] Jun, [facility] [address] [id number] [address] [place] [address], [place] [address] Jun, [facility] [address] [id number] [address] [place] [address], [place] [address] 15 Jun, 2012 [facility] [address] [id number] [address] [place] [address], [place] [address] 14 Jun, 2012 [facility] [address] [id number] [address] [place] [address], [place] [address] 08 Jun, 2012 [facility] [address] [id number] [address] [place] [address], [place] [address] 28 May, 2012 [facility] [address] [id number] [address] [place] [address], [place] [address] May, [facility] [address] [id number] [address] [place] [address], [place] [address] May, [facility] [address] [id number] [address] [place] [address], [place] [address] May, [facility] [address] [id number] [address] [place] [address], [place] [address] May, [facility] [address] [id number] [address] [place] [address], [place] [address] May, [facility] [address] [id number] [address] [place] [address], [place] [address] May, [facility] [address] [id number] [address] [place] [address], [place] [address] May, [facility] [address] [id number] [address] [place] [address], [place] [address] May, [facility] [facility] [address] [id number] [address] [place] [address], [place] [address] May, [facility] [address] [id number] [address] [place] [address], [place] [address] Apr, [facility] [address] [id number] [address] [place] [address], [place] [address] Apr, [facility] [address] [id number] [address] [place] [address], [place] [address] Apr, [facility] [address] [id number] [address] [place] [address], [place] [address] Apr, [facility] [address] [id number] [address] [place] [address], [place] [address] Apr, [facility] [address] [id number] [address] [place] [address], [place] [address] Apr, [facility] [address] [id number] [address] [place] [address], [place] [address] Apr, [facility] [address] [id number] [address] [place] [address], [place] [address] Apr, [facility] [address] [id number] [address] [place] [address], [place] [address] Apr, [facility] [address] [id number] [address] [place] [address], [place] [address] Apr, [facility] [address] [id number] [address] [place] [address], [place] [address] Apr, [facility] [address] [id number] [address] [place] [address], [place] [address] Apr, [facility] [address] [id number] [address] [place] [address], [place] [address] Mar, [facility] [address] [id number] [address] [place] [address], [place] [address] Mar, [facility] [address] [id number] [address] [place] [address], [place] [address] Mar, [facility] [address] [id number] [address] [place] [address], [place] [address] Mar, [facility] [address] [id number] [address] [place] [address], [place] [address] Mar, [facility] [address] [id number] [address] [place] [address], [place] [address] Mar, [facility] [address] [id number] [address] [place] [address], [place] [address] Mar, [facility] [address] [id number] [address] [place] [address], [place] [address] Mar, [facility] [address] [id number] [address] [place] [address], [place] [address] Mar, [facility] [address] [id number] [address] [place] [address], [place] [address] Mar, [facility] [address] [id number] [address] [place] [address], [place] [address] Mar, [facility] [address] [id number] [address] [place] [address], [place] [address] Mar, [facility] [address] [id number] [address] [place] [address], [place] [address] Mar, [facility] [address] [id number] [address] [place] [address], [place] [address] Mar, [facility] [address] [id number] [address] [place] [address], [place] [address] Mar, [facility] [address] [id number] [address] [place] [address], [place] [address] Mar, [facility] [address] [id number] [address] [place] [address], [place] [address] 25 Jan, 2012 [facility] [address] [id number] [address] [place] [address], [place] [address] 24 Sep, 2011 [facility] [address] [id number] [address] [place] [address], [place] [address] 22 Jan, 2012 [facility] [address] [id number] [address] [place] [address], [place] [address] 22 Jan, 2011 [facility] [address] [id number] [address] [place] [address], [place] [address] 21 Jan, 2012 [facility] [address] [id number] [address] [place] [address], [place] [address] 18 Jan, 2012 [facility] [address] [id number] [address] [place] [address], [place] [address] 14 Jan, 2012 [facility] [address] [id number] [address] [place] [address], [place] [address] 07 Jan, 2012 [facility] [address] [id number] [address] [place] [address], [place] [address] 15 Dec, 2011 [facility] [address] [id number] [address] [place] [address], [place] [address] 10 Dec, 2011 [facility] [address] [id number] [address] [place] [address], [place] [address] Dec, [facility] [address] [id number] [address] [place] [address], [place] [address] Dec, [facility] [address] [id number] [address] [place] [address], [place] [address] Dec, [facility] [address] [id number] [address] [place] [address], [place] [address] Dec, [facility] [address] [id number] [address] [place] [address], [place] [address] Dec, [facility] [address] [id number] [address] [place] [address], [place] [address] Nov, [facility] [address] [id number] [address] [place] [address], [place] [address] Oct, [facility] [address] [id number] [address] [place] [address], [place] [address] 05 Aug, 2011 [facility] [address] [id number] [address] [place] [address], [place] [address] Jul, [facility] [address] [id number] [address] [place] [address], [place] [address] Jul, [facility] [address] [id number] [address] [place] [address], [place] [address] 16 Jul, 2011 [facility] [address] [id number] [address] [place] [address], [place] [address] 14 Jul, 2011 [facility] [address] [id number] [address] [place] [address], [place] [address] 07 Jul, 2011 [facility] [address] [id number] [address] [place] [address], [place] [address] 02 Jul, 2011 [facility] [address] [id number] [address] [place] [address], [place] [address] 21 Jul, 2011 [facility] [address] [id number] [address] [place] [address], [place] [address] 15 Jul, 2011 [facility] [address] [id number] [address] [place] [address], [place] [address] 13 Jul, 2011 [facility] [address] [id number] [address] [place] [address], [place] [address] 03 Jul, 2011 [facility] [address] [id number] [address] [place] [address], [place] [address] 02 Jul, 2011 [facility] [address] [id number] [address] [place] [address], [place] [address] Jun, [facility] [address] [id number] [address] [place] [address], [place] [address] 24 Jun, 2011 [facility] [address] [id number] [address] [place] [address], [place] [address] Jun, [facility] [address] [id number] [address] [place] [address], [place] [address] Jun, [facility] [address] [id number] [address] [place] [address], [place] [address] Jun, [facility] [address] [id number] [address] [place] [address], [place] [address] Jun, [facility] [address] [id number] [address] [place] [address], [place] [address] Jun, [facility] [address] [id number] [address] [place] [address], [place] [address] May, [facility] [address] [id number] [address] [place] [address], [place] [address] May, [facility] [address] [id number] [address] [place] [address], [place] [address] May, [facility] [address] [id number] [address] [place] [address], [place] [address] 14 May, 2011 [facility] [address] [id number] [address] [place] [address], [place] [address] 14 May, 2011 [facility] [address] [id number] [address] [place] [address], [place] [address] May, [facility] [address] [id number] [address] [place] [address], [place] [address] May, [facility] [address] [id number] [address] [place] [address], [place] [address] May, [facility] [address] [id number] [address] [place] [address], [place] [address] May, [facility] [address] [id number] [address] [place] [address], [place] [address] May, [facility] [address] [id number] [address] [place] [address], [place] [address] 15 Apr, 2011 [facility] [address] [id number] [address] [place] [address], [place] [address] 15 Apr, 2011 [facility] [address] [id number] [address] [place] [id number] Apr, [facility] [address] [id number] [address] [place] [address], [place] [address] Apr, [facility] [address] [id number] [address] [place] [address], [place] [address] Mar, [facility] [address] [id number] [address] [place] [address], [place] [address] 24 Mar, 2011 [facility] [address] [id number] [address] [place] [id number] Mar, [facility] [address] [facility] [id number] [address] [place] [id number] Mar, IMMUNIZATIONS No Known Immunizations SOCIAL HISTORY [...]
--- OUTSIDE RECORDS SUMMARY | 2020-01-03 18:15 | XMS REPORT ---
Author Author Pattie VIEIRA Organization [facility] Address [address] [place] [address] Care Team Providers Care Puppy Sitter Name Role Phone REYNALDO VIEIRA Unavailable PROBLEMS Type Condition ICD9-CM Code WEY39-AM Code Onset Dates Condition S tatus SNOMED Code Problem FRANCIS (generalized anxiety disorder) F41.1 Active 20842348 Problem Thoracic disc herniation M51.24 Activ e 449988066 Problem Major depressive disorder in partial remission F32 .4 Active 32624710 Problem Paroxysmal tachycardia I47.9 Active 21111736 Problem Slow transit constipation K59.01 Acti ve 19792753 Problem Constipation, unspecified constipation type K59.00 Active 63759948 Problem Obesity (BMI 30.0-34.9) E66.9 Active [id number] Problem Seizure disorder G40.909 Active 128 315313 Problem High blood pressure I10 Active 08583486 Problem Conversion disorder (or hysterical neurosis, conversion ty pe) F44.9 Active 35408853 Problem Mild episode of recurrent major depressive disorder F33.0 Active 545655205 Problem Restless leg syndrome G25.81 Active 96031698 Problem Other chronic pain G89.29 Active 8 6475462 Problem Mild intermittent asthma without complication J45. 20 Active 753930931 ALLERGIES No Information ENCOUNTERS Encounter Location Date Diagnosis [facility] [address] [facility] [id number] [address] [place] [address] Jul, [facility] [address] [facility] [id number] [address] [place] [address] Jul, Major depressive disorder in partial remission F32.4 ; FRANCIS (generalized anxiety disorder) F41.1 ; Restless leg syndrome G25.81 and High blood pressure I10 [facility] [address] [facility] [id number] [address] [place] [address] 17 Jul, 2019 [facility] [address] [facility] [id number] [address] [place] [address] Jul, [facility] [address] [facility] [id number] [address] [place] [address] Jun, [facility] [address] [id number] [address] [place] [address] May, [facility] [address] [facility] [id number] [address] [place] [address] Apr, [facility] [address] [id number] [address] [place] [address] Apr, [facility] [address] [facility] [id number] [address] [place] [address] Mar, [facility] [address] [facility] [id number] [address] [place] [address] Mar, Major depressive disorder in partial remission F32.4 ; FRANCIS (generalized anxiety disorder) F41.1 and Restless leg syndrome G25.81 [facility] [address] [facility] [id number] [address] [place] [address] Mar, Obesity (BMI 30.0-34.9) E66. 9 [facility] [address] [facility] [id number] [address] [place] [address] Jan, [facility] [address] [facility] [id number] [address] [place] [address] Jan, Burn T30.0 [facility] [address] [facility] [id number] [address] [place] [address] Dec, [facility] [address] [facility] [id number] [address] [place] [address] Nov, [facility] [address] [facility] [id number] [address] [place] [address] Nov, [facility] [address] [id number] [address] [place] [address] [id number] Nov, Dental examination Z01.20 [facility] [address] [facility] [id number] [address] [place] [address] September, [facility] [id number] [place] [id number] September, Decay, teeth K02.9 and Denta l examination Z01.20 [facility] [address] [facility] [id number] [address] [place] [address] [id number] September, Dental examination Z01.20 [place] [address] [place] [id number] [place] [address] September, FRANCIS (generalized anxiety dis order) F41.1 ; Major depressive disorder in partial remission F32.4 and Restless leg syndrome G25.81 [place] [address] [address] Aug, [place] [address] [address] Jul, [place] [address] [address] Jul, Encounter to discuss test re sults Z71.2 [place] [address] [address] Jul, Pelvic pain R10.2 ; Screenin g for breast cancer Z12.31 and Obesity (BMI 30.0-34.9) E66.9 [place] [address] [place] [id number] [address] [place] [address] Jul, Mild intermittent asthma wit hout complication J45.20 [place] [address] [place] [id number] [address] [place] [address] Jul, Major depressive disorder in partial remission F32.4 and FRANCIS (generalized anxiety disorder) F41.1 [place] [address] [place] [id number] [address] [place] [address] Jul, [place] [address] [address] Jun, [facility] [address] [id number] [address] [place] [address] May, Major depressive disorder in partial remission F32.4 ; FRANCIS (generalized anxiety disorder) F41.1 and Restless leg syndrome G25.81 [facility] [address] [id number] [address] [place] [address] Apr, [facility] [address] [id number] [address] [place] [address] Mar, [facility] [address] [id number] [address] [place] [address] Jan, Pain in thoracic spine M54.6 and Other chronic pain G89.29 [facility] [address] [id number] [address] [place] [address] 14 Jan, 2018 [facility] [address] [id number] [address] [place] [address] 11 Jan, 2018 Mild episode of recurrent ma saray depressive disorder F33.0 ; FRANCIS (generalized anxiety disorder) F41.1 and Restless leg syndrome G25.81 [facility] [address] [id number] [address] [place] [address] Dec, [facility] [address] [id number] [address] [place] [address] Dec, Hospital discharge follow-up Z09 [facility] [address] [id number] [address] [place] [address] Nov, [facility] [address] [id number] [address] [place] [address] Nov, [facility] [address] [id number] [address] [place] [address] September, [facility] [address] [id number] [address] [place] [address] September, [facility] [address] [id number] [address] [place] [address] September, Major depressive disorder in partial remission F32.4 ; FRANCIS (generalized anxiety disorder) F41.1 and Restless leg syndrome G25.81 [facility] [address] [facility] [id number] [address] [place] [address] September, [facility] [address] [facility] [id number] [address] [place] [address] Jul, [facility] [address] [facility] [id number] [address] [place] [address] Jul, Dorsalgia, unspecified M54.9 [place] [address] [facility] [id number] [address] [place] [address] Jul, Mild episode of recurrent ma saray depressive disorder F33.0 and FRANCIS (generalized anxiety disorder) F41.1 [place] [address] [facility] [id number] [address] [place] [address] May, [facility] [address] [facility] [id number] [address] [place] [address] May, Dysuria R30.0 and Acute cyst itis with hematuria N30.01 [facility] [address] [facility] [id number] [address] [place] [address] Apr, [facility] [address] [facility] [id number] [address] [place] [address] Apr, Major depressive disorder in partial remission F32.4 and FRANCIS (generalized anxiety disorder) F41.1 [place] [id number] [facility] [id number] [address] [place] [address] Mar, Paroxysmal tachycardia I47.9 [facility] [address] [facility] [id number] [address] [place] [address] Mar, Paroxysmal tachycardia I47.9 and Pain of left lower extremity M79.605 [facility] [address] [facility] [id number] [address] [place] [address] Mar, FRANCIS (generalized anxiety dis order) F41.1 and Major depressive disorder in partial remission F32.4 [facility] [address] [id number] [address] [place] [address] Jan, [facility] [address] [id number] [address] [place] [address] Jan, [facility] [address] [id number] [address] [place] [address] Jan, [facility] [address] [id number] [address] [place] [address] Dec, Constipation, unspecified co nstipation type K59.00 [facility] [address] [id number] [address] [place] [address] Dec, [facility] [address] [id number] [address] [place] [address] Nov, [facility] [address] [facility] [id number] [address] [place] [address] Nov, Major depressive disorder in partial remission F32.4 and FRANCIS (generalized anxiety disorder) F41.1 [facility] [address] [id number] [address] [place] [address] Oct, Abdominal pain R10.9 and Slo w transit constipation K59.01 [facility] [address] [facility] [id number] [address] [place] [address] Aug, Major depressive disorder in partial remission F32.4 ; FRANCIS (generalized anxiety disorder) F41.1 ; Conversion disorder (or hysterical neurosis, conversion type) F44.9 ; Dorsalgia, unspecified M54.9 and Long-term use of high-risk medication Z79.899 [facility] [address] [id number] [address] [place] [address] Aug, [facility] [address] [id number] [address] [place] [address] Jul, Paroxysmal tachycardia I47.9 [facility] [address] [id number] [address] [place] [address] Jul, Paroxysmal tachycardia I47.9 [facility] [address] [facility] [id number] [address] [place] [address] Jun, [facility] [address] [facility] [id number] [address] [place] [address] Jun, Major depressive disorder in partial remission F32.4 ; FRANCIS (generalized anxiety disorder) F41.1 and Conversion disorder (or hysterical neurosis, conversion type) F44.9 [facility] [address] [id number] [address] [place] [address] May, Pelvic pain R10.2 [facility] [address] [facility] [id number] [address] [place] [address] Apr, Gastroenteritis K52.9 [facility] [address] [facility] [id number] [address] [place] [address] Apr, Blood in urine R31.9 and Acu te cystitis with hematuria N30.01 [facility] [address] [facility] [id number] [address] [place] [address] Apr, Major depressive disorder in partial remission F32.4 ; FRANCIS (generalized anxiety disorder) F41.1 and Conversion disorder (or hysterical neurosis, conversion type) F44.9 [facility] [address] [facility] [id number] [address] [place] [address] Apr, [facility] [address] [facility] [id number] [address] [place] [address] Apr, Abnormal mammogram R92.8 [facility] [address] [facility] [id number] [address] [place] [phone] Mar, [facility] [address] [facility] [id number] [address] [place] [address] Mar, Gastroenteritis K52.9 and Se izure disorder G40.909 [facility] [address] [facility] [id number] [address] [place] [address] Dec, [facility] [address] [id number] [address] [place] [address] Dec, Other headache syndrome G44. 89 [facility] [address] [id number] [address] [place] [address] Dec, [facility] [address] [id number] [address] [place] [address] Dec, Thoracic disc herniation M51 .24 [facility] [address] [id number] [address] [place] [address] Dec, [facility] [address] [id number] [address] [place] [address] Nov, Major depressive disorder in partial remission F32.4 and FRANCIS (generalized anxiety disorder) F41.1 [facility] [address] [id number] [address] [place] [address] Nov, [facility] [address] [id number] [address] [place] [address] Nov, Dorsalgia, unspecified M54.9 [facility] [address] [id number] [address] [place] [address] Oct, [facility] [address] [id number] [address] [place] [address] September, [facility] [address] [id number] [address] [place] [address] Aug, [facility] [address] [id number] [address] [place] [address] Aug, Major depressive disorder in partial remission F32.4 and FRANCIS (generalized anxiety disorder) F41.1 [facility] [address] [id number] [address] [place] [address] Aug, [facility] [address] [id number] [address] [place] [address] Jul, Abnormal mammogram R92.8 [facility] [address] [id number] [address] [place] [address] Jul, [facility] [address] [id number] [address] [place] [address] Jul, [facility] [address] [id number] [address] [place] [address] Jul, [facility] [address] [id number] [address] [place] [address] Jul, [facility] [address] [id number] [address] [place] [address] Jul, [facility] [address] [id number] [address] [place] [address] Jul, [facility] [address] [facility] [id number] [address] [place] [address] Jun, Major depressive disorder in partial remission F32.4 and FRANCIS (generalized anxiety disorder) F41.1 [facility] [address] [id number] [address] [place] [address] Jun, [facility] [address] [id number] [address] [place] [address] May, [facility] [address] [id number] [address] [place] [address] Apr, [facility] [address] [id number] [address] [place] [address] Mar, Major depressive disorder, r ecurrent episode, moderate F33.1 ; PTSD (post-traumatic stress disorder) F43.10 and FRANCIS (generalized anxiety disorder) F41.1 [facility] [address] [id number] [address] [place] [address] Mar, [facility] [address] [id number] [address] [place] [address] Mar, [facility] [address] [facility] [id number] [address] [place] [address] Mar, [facility] [address] [id number] [address] [place] [address] 07 Mar, 2015 [facility] [address] [id number] [address] [place] [address] 23 Jan, 2015 [facility] [address] [id number] [address] [place] [address] 15 Jan, 2015 [facility] [address] [id number] [address] [place] [address] 15 Jan, 2015 [facility] [address] [id number] [address] [place] [address] 14 Jan, 2015 Thoracic disc herniation 722 .11 [facility] [address] [id number] [address] [place] [address] Dec, [facility] [address] [id number] [address] [place] [address] Dec, [facility] [address] [id number] [address] [place] [address] Dec, [facility] [address] [id number] [address] [place] [address] Nov, [facility] [address] [id number] [address] [place] [address] Nov, Generalized anxiety disorder 300.02 ; Posttraumatic stress disorder 309.81 and Major depressive disorder, recurrent episode, moderate 296.32 [facility] [address] [id number] [address] [place] [address] Nov, [facility] [address] [id number] [address] [place] [address] Nov, [facility] [address] [id number] [address] [place] [address] Oct, [facility] [address] [id number] [address] [place] [address] Oct, [facility] [address] [id number] [address] [place] [address], [place] [id number] 04 Oct, 2014 [facility] [address] [id number] [address] [place] [address], [place] [id number] September, [facility] [address] [id number] [address] [place] [address], [place] [id number] September, [facility] [address] [id number] [address] [place] [address], [place] [id number] Aug, [facility] [address] [id number] [address] [place] [address], [place] [id number] Aug, [facility] [address] [id number] [address] [place] [address], [place] [id number] Jul, [facility] [address] [id number] [address] [place] [address], [place] [id number] Jul, [facility] [address] [id number] [address] [place] [address], [place] [id number] Jul, [facility] [address] [id number] [address] [place] [address], [place] [id number] 17 Jul, 2014 [facility] [address] [id number] [address] [place] [address], [place] [id number] Jul, [facility] [address] [id number] [address] [place] [address], [place] [id number] Jul, [facility] [address] [id number] [address] [place] [address], [place] [id number] 19 Jul, 2014 [facility] [address] [id number] [address] [place] [address], [place] [id number] Jul, [facility] [address] [id number] [address] [place] [address], [place] [id number] Jul, [facility] [address] [id number] [address] [place] [address], [place] [id number] Jul, [facility] [address] [id number] [address] [place] [address], [place] [id number] Jun, [facility] [address] [id number] [address] [place] [address], [place] [id number] Jun, [facility] [address] [id number] [address] [place] [address], [place] [id number] Jun, [facility] [address] [id number] [address] [place] [address], [place] [id number] May, [facility] [address] [id number] [address] [place] [address], [place] [id number] Apr, [facility] [address] [id number] [address] [place] [address], [place] [id number] Apr, [facility] [address] [id number] [address] [place] [address], [place] [id number] Apr, [facility] [address] [id number] [address] [place] [address], [place] [id number] Apr, [facility] [address] [id number] [address] [place] [address], [place] [id number] Apr, [facility] [address] [id number] [address] [place] [address], [place] [id number] Apr, [facility] [address] [id number] [address] [place] [address] Apr, [facility] [address] [id number] [address] [place] [address] Apr, [facility] [address] [id number] [address] [place] [address] Mar, [facility] [address] [id number] [address] [place] [address], [place] [id number] Mar, [facility] [address] [id number] [address] [place] [address], [place] [id number] Mar, [facility] [address] [id number] [address] [place] [id number] Mar, [facility] [address] [id number] [address] [place] [id number] Mar, [facility] [address] [id number] [address] [place] [address], [place] [id number] Mar, [facility] [address] [id number] [address] [place] [id number] Mar, [facility] [address] [id number] [address] [place] [address], [place] [id number] Mar, [facility] [address] [id number] [address] [place] [address], [place] [id number] Mar, [facility] [address] [id number] [address] [place] [address], [place] [id number] Mar, [facility] [address] [id number] [address] [place] [address], [place] [id number] 17 Mar, 2014 [facility] [address] [id number] [address] [place] [address], [place] [id number] 14 Mar, 2014 [facility] [address] [id number] [address] [place] [address], [place] [id number] 14 Mar, 2014 [facility] [address] [id number] [address] [place] [address], [place] [id number] 07 Mar, 2014 [facility] [address] [id number] [address] [place] [address], [place] [id number] 07 Mar, 2014 [facility] [address] [id number] [address] [place] [id number] 06 Mar, 2014 [facility] [address] [id number] [address] [place] [id number] Mar, [facility] [address] [id number] [address] [place] [address], [place] [id number] 19 Jan, 2013 [facility] [address] [id number] [address] [place] [address], [place] [id number] 19 Jan, 2013 [facility] [address] [id number] [address] [place] [address], [place] [id number] 09 Jan, 2013 [facility] [address] [id number] [facility] [id number] 09 Sep, 2013 [facility] [address] [id number] [facility] [place] [id number] 05 Sep, 2013 [facility] [address] [id number] [facility] [place] [id number] 05 Sep, 2013 [facility] [address] [id number] [address] [place] [address], [place] [id number] 05 Sep, 2013 [facility] [address] [id number] [facility] [place] [id number] 05 Sep, 2013 [facility] [address] [id number] [address] [place] [address], [place] [id number] 03 Sep, 2013 [facility] [address] [id number] [address] [place] [address], [place] [id number] 02 Sep, 2013 [facility] [address] [id number] [address] [place] [address], [place] [id number] Jan, 2013 [facility] [address] [id number] [address] [place] [address], [place] [id number] Jan, 2013 [facility] [address] [id number] [address] [place] [address], [place] [id number] Jan, 2013 [facility] [address] [id number] [address] [place] [address], [place] [id number] Dec, [facility] [address] [id number] [address] [place] [address], [place] [id number] Dec, [facility] [address] [id number] [address] [place] [address], [place] [id number] Dec, [facility] [address] [id number] [address] [place] [address], [place] [id number] Dec, [facility] [address] [id number] [address] [place] [address], [place] [id number] Dec, [facility] [address] [id number] [address] [place] [address], [place] [id number] Dec, [facility] [place] [id number] Dec, [facility] [id number] Dec, [facility] [address] [id number] [address] [place] [address], [place] [id number] Dec, [facility] [address] [id number] [address] [place] [address], [place] [id number] Dec, [facility] [address] [id number] [address] [place] [address], [place] [id number] Dec, [facility] [address] [id number] [address] [place] [address], [place] [id number] Dec, [facility] [address] [id number] [address] [place] [address], [place] [id number] Nov, [facility] [address] [id number] [address] [place] [address], [place] [id number] Nov, [facility] [address] [id number] [address] [place] [address], [place] [id number] Nov, [facility] [address] [id number] [address] [place] [address], [place] [id number] Nov, [facility] [address] [id number] [address] [place] [address], [place] [id number] Nov, [facility] [address] [id number] [address] [place] [address], [place] [id number] Nov, [facility] [address] [id number] [address] [place] [address], [place] [id number] Nov, [facility] [address] [id number] [address] [place] [address], [place] [id number] Nov, [facility] [address] [id number] [address] [place] [address], [place] [id number] Nov, [facility] [address] [id number] [address] [place] [address], [place] [id number] Nov, [facility] [address] [id number] [address] [place] [address], [place] [id number] Nov, [facility] [address] [id number] [address] [place] [address], [place] [id number] Nov, [facility] [address] [id number] [address] [place] [address], [place] [id number] Nov, [facility] [address] [id number] [address] [place] [address], [place] [id number] Oct, [facility] [address] [id number] [address] [place] [address], [place] [id number] Oct, [facility] [address] [id number] [address] [place] [address], [place] [id number] Oct, [facility] [address] [id number] [address] [place] [address], [place] [id number] Oct, [facility] [address] [id number] [address] [place] [address], [place] [id number] Oct, [facility] [address] [id number] [address] [place] [address], [place] [id number] Oct, [facility] [address] [id number] [address] [place] [address], [place] [id number] Oct, [facility] [address] [id number] [address] [place] [address], [place] [id number] Oct, [facility] [address] [id number] [address] [place] [address], [place] [id number] Oct, [facility] [address] [id number] [address] [place] [address], [place] [id number] Oct, [facility] [address] [id number] [address] [place] [address], [place] [id number] Oct, [facility] [address] [id number] [address] [place] [address], [place] [id number] Oct, [facility] [address] [id number] [address] [place] [address], [place] [id number] September, [facility] [address] [id number] [facility] [id number] September, [facility] [address] [id number] [address] [place] [address], [place] [id number] September, [facility] [address] [id number] [address] [place] [address], [place] [id number] September, [facility] [address] [id number] [address] [place] [address], [place] [id number] Aug, [facility] [address] [id number] [address] [place] [address], [place] [id number] Aug, [facility] [address] [id number] [address] [place] [address], [place] [id number] Aug, [facility] [address] [id number] [address] [place] [address], [place] [id number] Aug, [facility] [address] [id number] [address] [place] [address], [place] [id number] Aug, [facility] [address] [id number] [address] [place] [address], [place] [id number] Aug, [facility] [address] [id number] [address] [place] [address], [place] [id number] Aug, [facility] [address] [id number] [address] [place] [address], [place] [id number] Jul, [facility] [address] [id number] [address] [place] [address], [place] [id number] Jul, [facility] [address] [id number] [address] [place] [address], [place] [id number] Jul, [facility] [address] [id number] [address] [place] [address], [place] [id number] Jul, [facility] [address] [id number] [address] [place] [address], [place] [id number] 19 Jul, 2013 [facility] [address] [id number] [address] [place] [address], [place] [id number] 19 Jul, 2013 [facility] [address] [id number] [address] [place] [address], [place] [id number] 18 Jul, 2013 [facility] [address] [id number] [address] [place] [address], [place] [id number] 18 Jul, 2013 [facility] [address] [id number] [address] [place] [address], [place] [id number] 18 Jul, 2013 [facility] [address] [id number] [address] [place] [address], [place] [id number] Jul, [facility] [address] [id number] [address] [place] [address], [place] [id number] Jul, [facility] [address] [id number] [address] [place] [address], [place] [id number] Jul, [facility] [address] [id number] [address] [place] [address], [place] [id number] Jul, [facility] [address] [id number] [address] [place] [address], [place] [id number] Jul, [facility] [address] [id number] [address] [place] [address], [place] [id number] Jul, [facility] [address] [id number] [address] [place] [address], [place] [id number] Jul, [facility] [address] [id number] [address] [place] [id number] Jul, [facility] [address] [id number] [address] [place] [address], [place] [id number] Jul, [facility] [address] [id number] [address] [place] [address], [place] [id number] Jun, [facility] [address] [id number] [address] [place] [address], [place] [id number] Jun, [facility] [address] [id number] [address] [place] [id number] 15 Jun, 2013 [facility] [address] [id number] [address] [place] [address], [place] [id number] 15 Jun, 2013 [facility] [address] [id number] [address] [place] [address], [place] [id number] 14 Jun, 2013 [facility] [address] [id number] [address] [place] [address], [place] [id number] 14 Jun, 2013 [facility] [address] [id number] [address] [place] [address], [place] [id number] 14 Jun, 2013 [facility] [address] [id number] [address] [place] [address], [place] [id number] 14 Jun, 2013 [facility] [address] [id number] [address] [place] [address], [place] [id number] 14 Jun, 2013 [facility] [address] [id number] [address] [place] [address], [place] [id number] 14 Jun, 2013 [facility] [address] [id number] [address] [place] [address], [place] [id number] 27 May, 2013 [facility] [address] [id number] [address] [place] [address], [place] [id number] 27 May, 2013 [facility] [address] [id number] [address] [place] [address], [place] [id number] 26 May, 2013 [facility] [address] [id number] [address] [place] [address], [place] [id number] 19 May, 2013 [facility] [address] [id number] [address] [place] [address], [place] [id number] 19 May, 2013 [facility] [address] [id number] [address] [place] [address], [place] [id number] 16 May, 2013 [facility] [address] [id number] [address] [place] [address], [place] [id number] 16 May, 2013 [facility] [address] [id number] [address] [place] [address], [place] [id number] 16 May, 2013 [facility] [address] [id number] [address] [place] [address], [place] [id number] 16 May, 2013 [facility] [address] [id number] [address] [place] [address], [place] [id number] 13 May, 2013 [facility] [address] [id number] [address] [place] [address], [place] [id number] 13 May, 2013 [facility] [address] [id number] [address] [place] [address], [place] [id number] 11 May, 2013 [facility] [address] [id number] [address] [place] [address], [place] [id number] 20 Apr, 2013 [facility] [address] [id number] [address] [place] [address], [place] [id number] 18 Apr, 2013 [facility] [address] [id number] [address] [place] [address], [place] [id number] 18 Apr, 2013 [facility] [address] [id number] [address] [place] [address], [place] [id number] Apr, [facility] [address] [id number] [address] [place] [address], [place] [id number] Apr, [facility] [address] [id number] [address] [place] [address], [place] [id number] 08 Apr, 2013 [facility] [address] [id number] [address] [place] [address], [place] [id number] 08 Apr, 2013 [facility] [address] [id number] [address] [place] [address], [place] [id number] 07 Apr, 2013 [facility] [address] [id number] [address] [place] [address], [place] [id number] 07 Apr, 2013 [facility] [address] [id number] [address] [place] [address], [place] [id number] Apr, [facility] [address] [id number] [address] [place] [address], [place] [id number] 07 Apr, 2013 [facility] [address] [id number] [address] [place] [address], [place] [id number] Mar, [facility] [address] [id number] [address] [place] [address], [place] [id number] Mar, [facility] [address] [id number] [address] [place] [address], [place] [id number] Mar, [facility] [address] [id number] [address] [place] [address], [place] [id number] Mar, [facility] [address] [id number] [address] [place] [address], [place] [id number] Mar, [facility] [address] [id number] [address] [place] [address], [place] [id number] Mar, [facility] [address] [id number] [address] [place] [address], [place] [id number] Mar, [facility] [address] [id number] [address] [place] [address], [place] [id number] Mar, [facility] [address] [id number] [address] [place] [address], [place] [id number] Mar, [facility] [address] [id number] [address] [place] [address], [place] [id number] 15 Mar, 2013 [facility] [address] [id number] [address] [place] [id number] 15 Mar, 2013 [facility] [address] [id number] [address] [place] [id number] Mar, [facility] [address] [id number] [address] [place] [id number] 30 Jan, 2013 [facility] [address] [id number] [address] [place] [address], [place] [id number] 25 Jan, 2013 [facility] [address] [id number] [address] [place] [id number] 20 Jan, 2012 [facility] [address] [id number] [address] [place] [id number] 10 Jan, 2012 [facility] [address] [id number] [facility] [place] [id number] Dec, [facility] [address] [id number] [address] [place] [address], [place] [id number] Dec, [facility] [address] [id number] [address] [place] [address], [place] [id number] Dec, [facility] [address] [id number] [address] [place] [address], [place] [id number] Dec, [facility] [address] [id number] [address] [place] [address], [place] [id number] Dec, [facility] [address] [id number] [address] [place] [address], [place] [id number] Dec, [facility] [address] [id number] [address] [place] [address], [place] [id number] Dec, [facility] [address] [id number] [address] [place] [address], [place] [id number] Dec, [facility] [address] [id number] [address] [place] [address], [place] [id number] Dec, [facility] [address] [id number] [address] [place] [address], [place] [id number] Nov, [facility] [address] [id number] [address] [place] [address], [place] [id number] Nov, [facility] [address] [id number] [address] [place] [address], [place] [id number] Nov, [facility] [address] [id number] [address] [place] [address], [place] [id number] Nov, [facility] [address] [id number] [address] [place] [address], [place] [id number] Nov, [facility] [address] [id number] [address] [place] [address], [place] [id number] Nov, [facility] [address] [id number] [address] [place] [address], [place] [id number] Nov, [facility] [address] [id number] [address] [place] [address], [place] [id number] Nov, [facility] [address] [id number] [address] [place] [address], [place] [id number] Oct, [facility] [address] [id number] [address] [place] [address], [place] [id number] Oct, [facility] [address] [id number] [address] [place] [address], [place] [id number] Oct, [facility] [address] [id number] [address] [place] [address], [place] [id number] Oct, [facility] [address] [id number] [address] [place] [address], [place] [id number] Oct, [facility] [address] [id number] [address] [place] [address], [place] [id number] Oct, [facility] [address] [id number] [address] [place] [address], [place] [id number] Oct, [facility] [address] [id number] [address] [place] [address], [place] [id number] Oct, [facility] [address] [id number] [address] [place] [address], [place] [id number] Oct, [facility] [address] [id number] [address] [place] [address], [place] [id number] Oct, [facility] [address] [id number] [address] [place] [address], [place] [id number] 17 Oct, 2012 [facility] [address] [id number] [address] [place] [address], [place] [id number] 14 Oct, 2012 [facility] [address] [id number] [address] [place] [address], [place] [id number] 07 Oct, 2012 [facility] [address] [id number] [address] [place] [address], [place] [id number] September, [facility] [address] [id number] [address] [place] [address], [place] [id number] September, [facility] [address] [id number] [address] [place] [address], [place] [id number] September, [facility] [address] [id number] [address] [place] [address], [place] [id number] Aug, [facility] [address] [id number] [address] [place] [address], [place] [id number] Aug, [facility] [address] [id number] [address] [place] [address], [place] [id number] Aug, [facility] [address] [id number] [address] [place] [address], [place] [id number] Aug, [facility] [address] [id number] [address] [place] [address], [place] [id number] Aug, [facility] [address] [id number] [address] [place] [address], [place] [id number] Aug, [facility] [address] [id number] [address] [place] [address], [place] [id number] Aug, [facility] [address] [id number] [address] [place] [address], [place] [id number] Jul, [facility] [address] [id number] [address] [place] [address], [place] [id number] Jul, [facility] [address] [id number] [address] [place] [address], [place] [id number] Jul, [facility] [address] [id number] [address] [place] [address], [place] [id number] Jul, [facility] [address] [id number] [address] [place] [address], [place] [id number] Jul, [facility] [address] [id number] [address] [place] [address], [place] [id number] Jul, [facility] [address] [id number] [address] [place] [address], [place] [id number] Jul, [facility] [address] [id number] [address] [place] [address], [place] [id number] Jul, [facility] [address] [id number] [address] [place] [address], [place] [id number] Jul, [facility] [address] [id number] [address] [place] [address], [place] [id number] Jul, [facility] [address] [id number] [address] [place] [address], [place] [id number] Jul, [facility] [address] [id number] [address] [place] [address], [place] [id number] Jul, [facility] [address] [id number] [address] [place] [address], [place] [id number] Jul, [facility] [address] [id number] [address] [place] [address], [place] [id number] Jun, [facility] [address] [id number] [address] [place] [address], [place] [id number] Jun, [facility] [address] [id number] [address] [place] [address], [place] [id number] Jun, [facility] [address] [id number] [address] [place] [address], [place] [id number] Jun, [facility] [address] [id number] [address] [place] [address], [place] [id number] 15 Jun, 2012 [facility] [address] [id number] [address] [place] [address], [place] [id number] 14 Jun, 2012 [facility] [address] [id number] [address] [place] [address], [place] [id number] Jun, [facility] [address] [id number] [address] [place] [address], [place] [id number] May, [facility] [address] [id number] [address] [place] [address], [place] [id number] May, [facility] [address] [id number] [address] [place] [address], [place] [id number] May, [facility] [address] [id number] [address] [place] [address], [place] [id number] May, [facility] [address] [id number] [address] [place] [address], [place] [id number] May, [facility] [address] [id number] [address] [place] [address], [place] [id number] May, [facility] [address] [id number] [address] [place] [address], [place] [id number] May, [facility] [address] [id number] [address] [place] [address], [place] [id number] May, [facility] [address] [id number] [address] [place] [address], [place] [id number] May, [facility] [address] [id number] [address] [place] [address], [place] [id number] May, [facility] [address] [id number] [address] [place] [address], [place] [id number] Apr, [facility] [address] [id number] [address] [place] [address], [place] [id number] Apr, [facility] [address] [id number] [address] [place] [address], [place] [id number] Apr, [facility] [address] [id number] [address] [place] [address], [place] [id number] Apr, [facility] [address] [id number] [address] [place] [address], [place] [id number] Apr, [facility] [address] [id number] [address] [place] [address], [place] [id number] Apr, [facility] [address] [id number] [address] [place] [address], [place] [id number] Apr, [facility] [address] [id number] [address] [place] [address], [place] [id number] Apr, [facility] [address] [id number] [address] [place] [address], [place] [id number] 07 Apr, 2011 [facility] [address] [id number] [address] [place] [address], [place] [id number] Apr, 2011 [facility] [address] [id number] [address] [place] [address], [place] [id number] Apr, [facility] [address] [id number] [address] [place] [address], [place] [id number] Apr, [facility] [address] [id number] [address] [place] [address], [place] [id number] Mar, 2011 [facility] [address] [id number] [address] [place] [address], [place] [id number] Mar, 2011 [facility] [address] [id number] [address] [place] [address], [place] [id number] Mar, 2011 [facility] [address] [id number] [address] [place] [address], [place] [id number] Mar, 2011 [facility] [address] [id number] [address] [place] [address], [place] [id number] Mar, [facility] [address] [id number] [address] [place] [address], [place] [id number] Mar, 2011 [facility] [address] [id number] [address] [place] [address], [place] [id number] Mar, [facility] [address] [id number] [address] [place] [address], [place] [id number] 30 Mar, 2011 [facility] [address] [id number] [address] [place] [address], [place] [id number] Mar, 2011 [facility] [address] [id number] [address] [place] [address], [place] [id number] Mar, 2011 [facility] [address] [id number] [address] [place] [address], [place] [id number] Mar, [facility] [address] [id number] [address] [place] [address], [place] [id number] 16 Mar, 2012 [facility] [address] [id number] [address] [place] [address], [place] [id number] 12 Mar, 2012 [facility] [address] [id number] [address] [place] [address], [place] [id number] 12 Mar, 2012 [facility] [address] [id number] [address] [place] [address], [place] [id number] 03 Mar, 2012 [facility] [address] [id number] [address] [place] [address], [place] [id number] 02 Mar, 2012 [facility] [address] [id number] [address] [place] [address], [place] [id number] 25 Jan, 2012 [facility] [address] [id number] [address] [place] [address], [place] [id number] 24 Jan, 2012 [facility] [address] [id number] [address] [place] [address], [place] [id number] 22 Jan, 2012 [facility] [address] [id number] [address] [place] [address], [place] [id number] 22 Jan, 2012 [facility] [address] [id number] [address] [place] [address], [place] [id number] 21 Jan, 2012 [facility] [address] [id number] [address] [place] [address], [place] [id number] 18 Jan, 2012 [facility] [address] [id number] [address] [place] [address], [place] [id number] 14 Jan, 2012 [facility] [address] [id number] [address] [place] [address], [place] [id number] 07 Jan, 2012 [facility] [address] [id number] [address] [place] [address], [place] [id number] 15 Dec, 2011 [facility] [address] [id number] [address] [place] [address], [place] [id number] 10 Dec, 2011 [facility] [address] [id number] [address] [place] [address], [place] [id number] 09 Dec, 2011 [facility] [address] [id number] [address] [place] [id number] Dec, [facility] [address] [id number] [address] [place] [address], [place] [id number] Dec, [facility] [address] [id number] [address] [place] [address], [place] [id number] Dec, [facility] [address] [id number] [address] [place] [address], [place] [id number] Dec, [facility] [address] [id number] [address] [place] [address], [place] [id number] Nov, [facility] [address] [id number] [address] [place] [address], [place] [id number] Oct, [facility] [address] [id number] [address] [place] [address], [place] [id number] Aug, [facility] [address] [id number] [address] [place] [address], [place] [id number] Jul, [facility] [address] [id number] [address] [place] [address], [place] [id number] Jul, [facility] [address] [id number] [address] [place] [address], [place] [id number] 16 Jul, 2011 [facility] [address] [id number] [address] [place] [address], [place] [id number] 14 Jul, 2011 [facility] [address] [id number] [address] [place] [address], [place] [id number] 07 Jul, 2011 [facility] [address] [id number] [address] [place] [address], [place] [id number] Jul, [facility] [address] [id number] [address] [place] [address], [place] [id number] 21 Jul, 2011 [facility] [address] [id number] [address] [place] [address], [place] [id number] 15 Jul, 2011 [facility] [address] [id number] [address] [place] [address], [place] [id number] 13 Jul, 2011 [facility] [address] [id number] [address] [place] [address], [place] [id number] Jul, [facility] [address] [id number] [address] [place] [address], [place] [id number] Jul, [facility] [address] [id number] [address] [place] [address], [place] [id number] Jun, [facility] [address] [id number] [address] [place] [address], [place] [id number] Jun, [facility] [address] [id number] [address] [place] [address], [place] [id number] Jun, [facility] [address] [id number] [address] [place] [address], [place] [id number] Jun, [facility] [address] [id number] [address] [place] [address], [place] [id number] Jun, [facility] [address] [id number] [address] [place] [address], [place] [id number] Jun, [facility] [address] [id number] [address] [place] [address], [place] [id number] Jun, [facility] [address] [id number] [address] [place] [address], [place] [id number] May, [facility] [address] [id number] [address] [place] [address], [place] [id number] May, [facility] [address] [id number] [address] [place] [address], [place] [id number] May, [facility] [address] [id number] [address] [place] [address], [place] [id number] May, [facility] [address] [id number] [address] [place] [address], [place] [id number] May, [facility] [address] [id number] [address] [place] [address], [place] [id number] May, [facility] [address] [id number] [address] [place] [id number] May, [facility] [address] [id number] [address] [place] [id number] May, [facility] [address] [id number] [address] [place] [id number] May, [facility] [address] [id number] [address] [place] [id number] May, [facility] [address] [id number] [address] [place] [id number] Apr, [facility] [address] [id number] [address] [place] [id number] Apr, [facility] [address] [id number] [address] [place] [id number] Apr, [facility] [address] [id number] [address] [place] [id number] Apr, [facility] [address] [id number] [address] [place] [id number] Mar, [facility] [address] [id number] [address] [place] [id number] Mar, [facility] [address] [id number] [address] [place] [id number] Mar, [facility] [address] [id number] [address] [place] [id number] Mar, IMMUNIZATIONS No Known Immunizations SOCIAL HISTORY [...] surgeries Hospitalization History [facility] 10/24/16 Hospitalization History [facility] for kidney stones/hypertension 0 12/2017
--- OUTSIDE RECORDS SUMMARY | 2020-01-03 18:15 | XMS REPORT ---
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 Role Phone REYNALDO VIEIRA Unavailable PROBLEMS Type Condition ICD9-CM Code [id number] Code Onset Dates Condition S tatus SNOMED Code Problem FRANCIS (generalized anxiety disorder) F41.1 Active 16549121 Problem Thoracic disc herniation M51.24 Activ e 932247897 Problem Major depressive disorder in partial remission F32 .4 Active 03691027 Problem Paroxysmal tachycardia I47.9 Active 30486174 Problem Slow transit constipation K59.01 Acti ve 62864561 Problem Constipation, unspecified constipation type K59.00 Active 73128509 Problem Obesity (BMI 30.0-34.9) E66.9 Active [id number] Problem Seizure disorder G40.909 Active 128 678124 Problem High blood pressure I10 Active 30711092 Problem Conversion disorder (or hysterical neurosis, conversion ty pe) F44.9 Active 84556752 Problem Mild episode of recurrent major depressive disorder F33.0 Active 561933532 Problem Restless leg syndrome G25.81 Active 88049010 Problem Other chronic pain G89.29 Active 8 7522537 Problem Mild intermittent asthma without complication J45. 20 Active [id number] ALLERGIES No Information ENCOUNTERS Encounter Location Date Diagnosis [facility] [address] [id number] [place] [address] Jul, [facility] [address] [id number] [place] [address] Jul, Major depressive disorder in partial rem ission F32.4 ; FRANCIS (generalized anxiety disorder) F41.1 ; Restless leg syndrome G25.81 and High blood pressure I10 [facility] [address] [id number] [place] [address] Jul, [facility] [id number] [place] [address] Jul, [facility] [id number] [place] [address] Jun, [facility] [address] [address] May, [facility] [address] [address] Apr, [facility] [address] [address] Apr, [facility] [address] [address] Mar, [facility] [address] [address] Mar, Major depressive disorder in partial rem ission F32.4 ; FRANCIS (generalized anxiety disorder) F41.1 and Restless leg syndrome G25.81 [facility] [id number] [place] [address] Mar, Obesity (BMI 30.0-34.9) E66.9 [facility] [id number] [place] [address] Jan, [facility] [address] [facility] [id number] [address] [place] [address] Jan, Burn T30.0 [facility] [address] [id number] [place] [address] Dec, [facility] [address] [address] Nov, [facility] [id number] [place] [address] Nov, [facility] [address] [facility] [id number] [place] [id number] Nov, Dental examination Z01.20 [facility] [id number] [place] [address] September, [facility] [address] [id number] [place] [id number] September, Decay, teeth K02.9 and Dental examinatio n Z01.20 [facility] [address] [id number] [place] [id number] September, Dental examination Z01.20 [place] [address] [address] September, FRANCIS (generalized anxiety disorder) F41.1 ; Major depressive disorder in partial remission F32.4 and Restless leg syndrome G25.81 [place] [address] [address] Aug, [place] [address] [address] Jul, [place] [address] [address] Jul, Encounter to discuss test results Z71.[address] [address] Jul, Pelvic pain R10.2 ; Screening for breast cancer Z12.31 and Obesity (BMI 30.0-34.9) E66.9 [place] [address] [address] Jul, Mild intermittent asthma without complic ation J45.20 [place] [address] [address] Jul, Major depressive disorder in partial rem ission F32.4 and FRANCIS (generalized anxiety disorder) F41.1 [place] [address] [address] Jul, [place] [address] [address] Jun, [place] [address] [address] May, Major depressive disorder in partial rem ission F32.4 ; FRANCIS (generalized anxiety disorder) F41.1 and Restless leg syndrome G25.81 [facility] [address] [address] Apr, [facility] [address] [address] Mar, [facility] [address] [facility] [id number] [address] [place] [address] Jan, Pain in thoracic spine M54.6 and Other chronic pain G89.29 [facility] [address] [address] 14 Jan, 2018 [facility] [address] [address] 11 Jan, 2018 Mild episode of recurrent major depressi ve disorder F33.0 ; FRANCIS (generalized anxiety disorder) F41.1 and Restless leg syndrome G25.81 [facility] [address] [address] Dec, [facility] [address] [address] Dec, Hospital discharge follow-up Z09 [facility] [address] [address] Nov, [facility] [address] [address] Nov, [facility] [address] [address] September, [facility] [address] [address] September, [facility] [address] [address] September, Major depressive disorder in partial rem ission F32.4 ; FRANCIS (generalized anxiety disorder) F41.1 and Restless leg syndrome G25.81 [facility] [address] [address] September, [facility] [address] [address] Jul, [facility] [address] [address] Jul, Dorsalgia, unspecified M54.9 [facility] [address] [address] Jul, Mild episode of recurrent major depressi ve disorder F33.0 and FRANCIS (generalized anxiety disorder) F41.1 [facility] [address] [address] May, [facility] [address] [facility] [id number] [address] [place] [address] May, Dysuria R30.0 and Acute cyst itis with hematuria N30.01 [place] [address] [address] Apr, [place] [address] [address] Apr, Major depressive disorder in partial rem ission F32.4 and FRANCIS (generalized anxiety disorder) F41.1 [place] [address] [address] Mar, Paroxysmal tachycardia I47.9 [place] [address] [address] Mar, Paroxysmal tachycardia I47.9 and Pain of left lower extremity M79.605 [place] [address] [address] Mar, FRANCIS (generalized anxiety disorder) F41.1 and Major depressive disorder in partial remission F32.4 [place] [address] [address] Jan, [place] [address] [address] 14 Jan, 2017 [place] [address] [address] Jan, [facility] [address] [facility] [id number] [place] [address] Dec, Constipation, unspecified co nstipation type K59.00 [facility] [address] [address] Dec, [facility] [address] [address] Nov, [place] [address] [address] Nov, Major depressive disorder in partial rem ission F32.4 and FRANCIS (generalized anxiety disorder) F41.1 [facility] [id number] [place] [address] Oct, Abdominal pain R10.9 and Slo w transit constipation K59.01 [place] [address] [address] Aug, Major depressive disorder in partial rem ission F32.4 ; FRANCIS (generalized anxiety disorder) F41.1 ; Conversion disorder (or hysterical neurosis, conversion type) F44.9 ; Dorsalgia, unspecified M54.9 and Long-term use of high-risk medication Z79.899 [place] [address] [address] Aug, [place] [address] [address] Jul, Paroxysmal tachycardia I47.9 [place] [address] [address] Jul, Paroxysmal tachycardia I47.9 [place] [address] [address] Jun, [place] [address] [address] Jun, Major depressive disorder in partial rem ission F32.4 ; FRANCIS (generalized anxiety disorder) F41.1 and Conversion disorder (or hysterical neurosis, conversion type) F44.9 [facility] [id number] [place] [address] May, Pelvic pain R10.2 [facility] [id number] [place] [address] Apr, Gastroenteritis K52.9 [facility] [id number] [place] [address] Apr, Blood in urine R31.9 and Acu te cystitis with hematuria N30.01 [place] [address] [address] Apr, Major depressive disorder in partial rem ission F32.4 ; FRANCIS (generalized anxiety disorder) F41.1 and Conversion disorder (or hysterical neurosis, conversion type) F44.9 [place] [address] [address] Apr, [place] [address] [address] Apr, Abnormal mammogram R92.8 [place] [address] [address] Mar, [place] [address] [address] Mar, Gastroenteritis K52.9 and Seizure disord er G40.909 [place] [address] [address] Dec, [facility] [address] [id number] [place] [address] Dec, Other headache syndrome G44. 89 [place] [address] [address] Dec, [place] [address] [address] Dec, Thoracic disc herniation M51.24 [place] [id number] [place] [address] Dec, [facility] [id number] [place] [address] Nov, Major depressive disorder in partial rem ission F32.4 and FRANCIS (generalized anxiety disorder) F41.1 [facility] [id number] [place] [address] Nov, [facility] [id number] [place] [address] Nov, Dorsalgia, unspecified M54.9 [facility] [address] [address] Oct, [facility] [address] [address] September, [facility] [address] [address] Aug, [facility] [address] [address] Aug, Major depressive disorder in partial rem ission F32.4 and FRANCIS (generalized anxiety disorder) F41.1 [facility] [id number] [place] [address] Aug, [facility] [id number] [place] [address] Jul, Abnormal mammogram R92.8 [facility] [id number] [place] [address] Jul, [facility] [id number] [place] [address] Jul, [facility] [id number] [place] [address] Jul, [facility] [id number] [place] [address] Jul, [facility] [id number] [place] [address] Jul, [facility] [address] [address] Jul, [facility] [address] [address] Jun, Major depressive disorder in partial rem ission F32.4 and FRANCIS (generalized anxiety disorder) F41.1 [facility] [address] [address] Jun, [facility] [address] [address] May, [facility] [address] [address] Apr, [facility] [address] [address] Mar, Major depressive disorder, recurrent epi sode, moderate F33.1 ; PTSD (post-traumatic stress disorder) F43.10 and FRANCIS (generalized anxiety disorder) F41.1 [facility] [address] [address] Mar, [facility] [address] [address] Mar, [facility] [address] [address] Mar, [facility] [address] [address] Mar, [facility] [address] [address] Jan, [facility] [address] [address] 15 Jan, 2015 [facility] [address] [address] 15 Jan, 2015 [facility] [address] [address] 14 Jan, 2015 Thoracic disc herniation 722.11 [facility] [id number] [place] [address] Dec, [facility] [id number] [place] [address] Dec, [facility] [id number] [place] [address] Dec, [facility] [id number] [place] [address] Nov, [facility] [id number] [place] [address] Nov, Generalized anxiety disorder 300.02 ; Po sttraumatic stress disorder 309.81 and Major depressive disorder, recurrent episode, moderate 296.32 [facility] [id number] [place] [address] Nov, [facility] [id number] [place] [address] Nov, [facility] [id number] [place] [address] Oct, [facility] [id number] [place] [address] Oct, [facility] [id number] [place] [address] Oct, [facility] [id number] [place] [address] September, [facility] [id number] [place] [address] September, [facility] [id number] [place] [address] Aug, [facility] [id number] [place] [address] Aug, [facility] [id number] [place] [address] Jul, [facility] [id number] [place] [address] Jul, [facility] [address] [id number] [place] [address] 17 Jul, 2014 [facility] [address] [id number] [place] [address] 17 Jul, 2014 [facility] [address] [id number] [place] [address] 16 Jul, 2014 [facility] [address] [id number] [place] [address] 16 Jul, 2014 [facility] [address] [id number] [place] [address] 19 Jul, 2014 [facility] [address] [id number] [place] [address] Jul, [facility] [address] [id number] [place] [address] Jul, [facility] [address] [id number] [place] [address] Jul, [facility] [address] [id number] [place] [address] Jun, [facility] [address] [id number] [place] [address] Jun, [facility] [address] [id number] [place] [address] Jun, [facility] [address] [id number] [place] [address] May, [facility] [address] [id number] [place] [address] Apr, [facility] [address] [id number] [place] [address] Apr, [facility] [address] [id number] [place] [address] Apr, [facility] [address] [id number] [place] [address] Apr, [facility] [address] [id number] [place] [address] 07 Apr, 2014 [facility] [address] [facility] [id number] [place] [address] Apr, [facility] [address] [id number] [place] [address] Apr, [facility] [address] [id number] [place] [address] Apr, [facility] [address] [id number] [place] [address] Mar, [facility] [address] [id number] [place] [address] Mar, [facility] [address] [id number] [place] [address] Mar, [facility] [address] [id number] [place] [address] Mar, [facility] [address] [id number] [place] [address] Mar, [facility] [address] [id number] [place] [address] Mar, [facility] [address] [id number] [place] [address] Mar, [facility] [address] [id number] [place] [address] Mar, [facility] [address] [id number] [place] [address] Mar, [facility] [address] [id number] [place] [address] Mar, [facility] [address] [id number] [place] [address] 17 Mar, 2014 [facility] [address] [id number] [place] [address] 14 Mar, 2014 [facility] [address] [id number] [place] [address] 14 Mar, 2014 [facility] [address] [id number] [place] [address] 07 Mar, 2013 [facility] [address] [id number] [place] [address] 07 Mar, 2013 [facility] [address] [id number] [place] [address] Mar, 2013 [facility] [address] [id number] [place] [address] 06 Oct, 2013 [facility] [address] [id number] [place] [address] 19 Sep, 2013 [facility] [address] [id number] [place] [address] 19 Sep, 2013 [facility] [address] [id number] [place] [address] 09 Sep, 2013 [facility] [address] [id number] [place] [address] 09 Sep, 2013 [facility] [address] [id number] [place] [address] 05 Sep, 2013 [facility] [address] [id number] [place] [address] 05 Sep, 2013 [facility] [address] [id number] [place] [address] 05 Sep, 2013 [facility] [address] [id number] [place] [address] 05 Sep, 2013 [facility] [address] [id number] [place] [address] 03 Sep, 2013 [facility] [address] [id number] [place] [address] 02 Sep, 2013 [facility] [address] [id number] [place] [address] Sep, 2013 [facility] [address] [id number] [place] [address] 02 Sep, 2013 [facility] [address] [id number] [place] [address] Jan, [facility] [address] [facility] [id number] [place] [address] Dec, [facility] [address] [facility] [id number] [place] [address] Dec, [facility] [address] [id number] [place] [address] Dec, [facility] [address] [id number] [place] [address] Dec, [facility] [address] [id number] [place] [address] Dec, [facility] [address] [id number] [place] [address] Dec, [facility] [address] [facility] [id number] Dec, [facility] [address] [facility] [id number] Dec, [facility] [address] [id number] [place] [address] Dec, [facility] [address] [id number] [place] [address] Dec, [facility] [address] [id number] [place] [address] Dec, [facility] [place] [facility] [address] [id number] [place] [address] Dec, [facility] [place] [facility] [address] [id number] [place] [address] Nov, [facility] [place] [facility] [address] [facility] [id number] [place] [address] Nov, [facility] [place] [facility] [address] [id number] [place] [address] Nov, [facility] [place] [facility] [address] [facility] [id number] [place] [address] Nov, [facility] [place] [facility] [address] [id number] [place] [address] Nov, [facility] [place] [facility] [address] [facility] [id number] [place] [address] Nov, [facility] [place] [facility] [address] [facility] [id number] [place] [address] Nov, [facility] [place] [facility] [address] [facility] [id number] [place] [address] Nov, [facility] [place] [facility] [address] [facility] [id number] [place] [address] Nov, [facility] [place] [facility] [address] [facility] [id number] [place] [address] Nov, [facility] [place] [facility] [address] [facility] [id number] [place] [address] Nov, [facility] [place] [facility] [address] [id number] [place] [address] Nov, [facility] [place] [facility] [address] [id number] [place] [address] Nov, [facility] [place] [facility] [address] [facility] [id number] [place] [address] Oct, [facility] [place] [facility] [address] [id number] [place] [address] Oct, [facility] [place] [facility] [address] [id number] [place] [address] Oct, [facility] [place] [facility] [address] [id number] [place] [address] Oct, [facility] [place] [facility] [address] [facility] [id number] [place] [address] Oct, [facility] [place] [facility] [address] [facility] [id number] [place] [address] Oct, [facility] [place] [facility] [address] [facility] [id number] [place] [address] Oct, [facility] [place] [facility] [address] [id number] [place] [address] Oct, [facility] [place] [facility] [address] [facility] [id number] [place] [address] Oct, [facility] [place] [facility] [address] [facility] [id number] [place] [address] Oct, [facility] [place] [facility] [address] [facility] [id number] [place] [address] Oct, [facility] [place] [facility] [address] [id number] [place] [address] Oct, [facility] [place] [facility] [address] [facility] [id number] [place] [address] September, [facility] [place] [facility] [address] [facility] [id number] [place] [address] September, [facility] [place] [facility] [address] [facility] [id number] [place] [address] September, [facility] [place] [facility] [address] [id number] [place] [address] September, [facility] [place] [facility] [address] [id number] [place] [address] Aug, [facility] [place] [facility] [address] [facility] [id number] [place] [address] Aug, [facility] [place] [facility] [address] [id number] [place] [address] Aug, [facility] [place] [facility] [address] [id number] [place] [address] Aug, [facility] [place] [facility] [address] [id number] [place] [address] Aug, [facility] [place] [facility] [address] [facility] [id number] [place] [address] Aug, [facility] [place] [facility] [address] [id number] [place] [address] Aug, [facility] [place] [facility] [address] [facility] [id number] [place] [address] Jul, [facility] [place] [facility] [address] [id number] [place] [address] Jul, [facility] [place] [facility] [address] [facility] [id number] [place] [address] 28 Jul, 2013 [facility] [place] [facility] [address] [facility] [id number] [place] [address] 28 Jul, 2013 [facility] [place] [facility] [address] [facility] [id number] [place] [address] Jul, [facility] [place] [facility] [address] [id number] [place] [address] 19 Jul, 2013 [facility] [place] [facility] [address] [id number] [place] [address] 18 Jul, 2013 [facility] [place] [facility] [address] [id number] [place] [address] 18 Jul, 2013 [facility] [place] [facility] [address] [id number] [place] [address] 18 Jul, 2013 [facility] [place] [facility] [address] [id number] [place] [address] 18 Jul, 2013 [facility] [place] [facility] [address] [id number] [place] [address] Jul, [facility] [place] [facility] [address] [id number] [place] [address] 18 Jul, 2013 [facility] [place] [facility] [address] [id number] [place] [address] 14 Jul, 2013 [facility] [place] [facility] [address] [id number] [place] [address] 14 Jul, 2013 [facility] [place] [facility] [address] [id number] [place] [address] Jul, [facility] [place] [facility] [address] [id number] [place] [address] Jul, [facility] [place] [facility] [address] [id number] [place] [address] Jul, [facility] [place] [facility] [address] [id number] [place] [address] Jul, [facility] [place] [facility] [address] [id number] [place] [address] 31 Jun, 2013 [facility] [place] [facility] [address] [facility] [id number] [place] [address] 31 Jun, 2013 [facility] [place] [facility] [address] [facility] [id number] [place] [address] 15 Jun, 2013 [facility] [place] [facility] [address] [id number] [place] [address] 15 Jun, 2013 [facility] [place] [facility] [address] [id number] [place] [address] 14 Jun, 2013 [facility] [place] [facility] [address] [facility] [id number] [place] [address] 14 Jun, 2013 [facility] [place] [facility] [address] [id number] [place] [address] 14 Jun, 2013 [facility] [place] [facility] [address] [id number] [place] [address] 14 Jun, 2013 [facility] [place] [facility] [address] [id number] [place] [address] 14 Jun, 2013 [facility] [place] [facility] [address] [id number] [place] [address] 14 Jun, 2013 [facility] [place] [facility] [address] [id number] [place] [address] 27 May, 2013 [facility] [place] [facility] [address] [id number] [place] [address] 27 May, 2013 [facility] [place] [facility] [address] [id number] [place] [address] 26 May, 2013 [facility] [place] [facility] [address] [facility] [id number] [place] [address] 19 May, 2013 [facility] [place] [facility] [address] [id number] [place] [address] 19 May, 2013 [facility] [place] [facility] [address] [id number] [place] [address] 16 May, 2013 [facility] [place] [facility] [address] [id number] [place] [address] 16 May, 2013 [facility] [place] [facility] [address] [id number] [place] [address] 16 May, 2012 [facility] [place] [facility] [address] [id number] [place] [address] 16 May, 2013 [facility] [place] [facility] [address] [id number] [place] [address] 13 May, 2013 [facility] [place] [facility] [address] [id number] [place] [address] 13 May, 2013 [facility] [place] [facility] [address] [id number] [place] [address] 11 May, 2013 [facility] [place] [facility] [address] [id number] [place] [address] 20 Apr, 2013 [facility] [place] [facility] [address] [id number] [place] [address] 18 Apr, 2013 [facility] [place] [facility] [address] [id number] [place] [address] 18 Apr, 2013 [facility] [place] [facility] [address] [id number] [place] [address] 13 Apr, 2013 [facility] [place] [facility] [address] [id number] [place] [address] 13 Apr, 2013 [facility] [place] [facility] [address] [id number] [place] [address] 08 Apr, 2013 [facility] [place] [facility] [address] [id number] [place] [address] 08 Apr, 2013 [facility] [place] [facility] [address] [id number] [place] [address] 07 Apr, 2013 [facility] [place] [facility] [address] [id number] [place] [address] 07 Apr, 2013 [facility] [place] [facility] [id number] [place] [address] 07 Apr, 2013 [facility] [place] [facility] [address] [id number] [place] [address] 07 Apr, 2013 [facility] [place] [facility] [address] [id number] [place] [address] Mar, [facility] [place] [facility] [address] [facility] [id number] [place] [address] Mar, [facility] [place] [facility] [address] [id number] [place] [address] Mar, [facility] [place] [facility] [address] [id number] [place] [address] Mar, [facility] [place] [facility] [address] [id number] [place] [address] Mar, [facility] [place] [facility] [address] [facility] [id number] [place] [address] Mar, [facility] [place] [facility] [address] [id number] [place] [address] Mar, [facility] [place] [facility] [address] [id number] [place] [address] Mar, [facility] [place] [facility] [address] [id number] [place] [address] Mar, [facility] [place] [facility] [address] [id number] [place] [address] Mar, [facility] [place] [facility] [address] [id number] [place] [address] 15 Mar, 2013 [facility] [place] [facility] [address] [id number] [place] [address] Mar, [facility] [place] [facility] [address] [id number] [place] [address] 30 Jan, 2012 [facility] [place] [facility] [address] [id number] [place] [address] 25 Jan, 2012 [facility] [place] [facility] [address] [id number] [place] [address] 20 Jan, 2012 [facility] [place] [facility] [address] [id number] [place] [address] 10 Jan, 2012 [facility] [place] [facility] [address] [id number] [place] [address] 27 Dec, 2012 [facility] [place] [facility] [address] [id number] [place] [address] Dec, [facility] [place] [facility] [address] [id number] [place] [address] Dec, [facility] [place] [facility] [address] [facility] [id number] [place] [address] Dec, [facility] [place] [facility] [address] [id number] [place] [address] Dec, [facility] [place] [facility] [address] [facility] [id number] [place] [address] Dec, [facility] [place] [facility] [address] [facility] [id number] [place] [address] Dec, [facility] [place] [facility] [address] [id number] [place] [address] Dec, [facility] [place] [facility] [address] [id number] [place] [address] Dec, [facility] [place] [facility] [address] [id number] [place] [address] Nov, [facility] [place] [facility] [address] [facility] [id number] [place] [address] Nov, [facility] [place] [facility] [address] [id number] [place] [address] Nov, [facility] [place] [facility] [address] [id number] [place] [address] Nov, [facility] [place] [facility] [address] [id number] [place] [address] Nov, [facility] [place] [facility] [address] [facility] [id number] [place] [address] Nov, [facility] [place] [facility] [address] [id number] [place] [address] Nov, [facility] [place] [facility] [address] [facility] [id number] [place] [address] Nov, [facility] [place] [facility] [address] [id number] [place] [address] Oct, [facility] [place] [facility] [address] [id number] [place] [address] 27 Oct, 2012 [facility] [place] [facility] [address] [facility] [id number] [place] [address] Oct, [facility] [place] [facility] [address] [facility] [id number] [place] [address] Oct, [facility] [place] [facility] [address] [id number] [place] [address] Oct, [facility] [place] [facility] [address] [id number] [place] [address] Oct, [facility] [place] [facility] [address] [id number] [place] [address] Oct, [facility] [place] [facility] [address] [id number] [place] [address] Oct, [facility] [place] [facility] [address] [id number] [place] [address] 19 Oct, 2012 [facility] [place] [facility] [address] [id number] [place] [address] 18 Oct, 2012 [facility] [place] [facility] [address] [id number] [place] [address] 17 Oct, 2012 [facility] [place] [facility] [address] [id number] [place] [address] 14 Oct, 2012 [facility] [place] [facility] [address] [id number] [place] [address] 07 Oct, 2012 [facility] [place] [facility] [address] [id number] [place] [address] September, [facility] [place] [facility] [address] [facility] [id number] [place] [address] September, [facility] [place] [facility] [address] [id number] [place] [address] September, [facility] [place] [facility] [address] [id number] [place] [address] Aug, [facility] [place] [facility] [address] [id number] [place] [address] Aug, [facility] [address] [id number] [place] [address] Aug, [facility] [place] [facility] [address] [id number] [place] [address] Aug, [facility] [place] [facility] [address] [id number] [place] [address] Aug, [facility] [place] [facility] [address] [id number] [place] [address] 08 Aug, 2012 [facility] [place] [facility] [address] [facility] [id number] [place] [address] 05 Aug, 2012 [facility] [place] [facility] [address] [id number] [place] [address] Jul, [facility] [place] [facility] [address] [id number] [place] [address] Jul, [facility] [place] [facility] [address] [id number] [place] [address] Jul, [facility] [place] [facility] [address] [id number] [place] [address] Jul, [facility] [place] [facility] [address] [id number] [place] [address] Jul, [facility] [place] [facility] [address] [id number] [place] [address] Jul, [facility] [place] [facility] [address] [id number] [place] [address] Jul, [facility] [place] [facility] [address] [id number] [place] [address] Jul, [facility] [place] [facility] [address] [id number] [place] [address] Jul, [facility] [place] [facility] [address] [id number] [place] [address] Jul, [facility] [place] [facility] [address] [id number] [place] [address] Jul, [facility] [place] [facility] [address] [id number] [place] [address] 06 Jul, 2012 [facility] [place] [facility] [address] [id number] [place] [address] Jul, [facility] [place] [facility] [address] [id number] [place] [address] 24 Jun, 2012 [facility] [place] [facility] [address] [id number] [place] [address] Jun, [facility] [place] [facility] [address] [id number] [place] [address] Jun, [facility] [place] [facility] [address] [id number] [place] [address] Jun, [facility] [place] [facility] [address] [id number] [place] [address] 15 Jun, 2012 [facility] [place] [facility] [address] [id number] [place] [address] Jun, [facility] [place] [facility] [address] [id number] [place] [address] Jun, [facility] [place] [facility] [address] [id number] [place] [address] May, [facility] [place] [facility] [address] [id number] [place] [address] May, [facility] [place] [facility] [address] [id number] [place] [address] May, [facility] [place] [facility] [address] [id number] [place] [address] May, [facility] [place] [facility] [address] [id number] [place] [address] May, [facility] [place] [facility] [address] [id number] [place] [address] May, [facility] [place] [facility] [address] [id number] [place] [address] May, [facility] [place] [facility] [address] [id number] [place] [address] May, [facility] [place] [facility] [address] [id number] [place] [address] May, [facility] [place] [facility] [address] [id number] [place] [address] May, [facility] [place] [facility] [address] [id number] [place] [address] Apr, [facility] [place] [facility] [address] [id number] [place] [address] Apr, [facility] [place] [facility] [address] [id number] [place] [address] Apr, [facility] [place] [facility] [address] [id number] [place] [address] Apr, [facility] [place] [facility] [address] [id number] [place] [address] Apr, [facility] [place] [facility] [id number] [place] [address] Apr, [facility] [place] [facility] [address] [id number] [place] [address] Apr, [facility] [place] [facility] [address] [id number] [place] [address] Apr, [facility] [place] [facility] [address] [id number] [place] [address] Apr, [facility] [place] [facility] [address] [id number] [place] [address] Apr, [facility] [place] [facility] [address] [id number] [place] [address] Apr, [facility] [place] [facility] [address] [id number] [place] [address] Apr, [facility] [place] [facility] [address] [id number] [place] [address] Mar, [facility] [place] [facility] [address] [id number] [place] [address] Mar, [facility] [place] [facility] [address] [id number] [place] [address] Mar, 2011 [facility] [place] [facility] [address] [id number] [place] [address] Mar, 2011 [facility] [place] [facility] [address] [id number] [place] [address] Mar, 2011 [facility] [place] [facility] [address] [id number] [place] [address] Mar, 2011 [facility] [place] [facility] [address] [id number] [place] [address] Mar, 2011 [facility] [place] [facility] [address] [id number] [place] [address] Mar, 2011 [facility] [place] [facility] [address] [id number] [place] [address] Mar, 2011 [facility] [place] [facility] [address] [id number] [place] [address] Mar, 2011 [facility] [place] [facility] [address] [id number] [place] [address] Mar, 2011 [facility] [place] [facility] [address] [id number] [place] [address] Mar, [facility] [place] [facility] [address] [id number] [place] [address] Mar, [facility] [place] [facility] [address] [id number] [place] [address] Mar, [facility] [place] [facility] [address] [id number] [place] [address] Mar, [facility] [place] [facility] [address] [id number] [place] [address] Mar, 2011 [facility] [place] [facility] [address] [id number] [place] [address] 25 Sep, 2011 [facility] [place] [facility] [address] [id number] [place] [address] 24 Sep, 2011 [facility] [place] [facility] [address] [id number] [place] [address] 22 Sep, 2011 [facility] [place] [facility] [address] [id number] [place] [address] 22 Jan, 2011 [facility] [place] [facility] [address] [id number] [place] [address] 21 Jan, 2011 [facility] [place] [facility] [address] [id number] [place] [address] 18 Jan, 2012 [facility] [place] [facility] [address] [id number] [place] [address] 14 Jan, 2012 [facility] [place] [facility] [address] [id number] [place] [address] 07 Jan, 2012 [facility] [place] [facility] [address] [id number] [place] [address] 15 Dec, 2011 [facility] [place] [facility] [address] [id number] [place] [address] 10 Dec, 2011 [facility] [place] [facility] [address] [id number] [place] [address] Dec, [facility] [place] [facility] [address] [id number] [place] [address] Dec, [facility] [place] [facility] [address] [id number] [place] [address] Dec, [facility] [place] [facility] [address] [id number] [place] [address] Dec, [facility] [place] [facility] [address] [id number] [place] [address] Dec, [facility] [place] [facility] [address] [id number] [place] [address] Nov, [facility] [place] [facility] [address] [id number] [place] [address] Oct, [facility] [place] [facility] [address] [id number] [place] [address] Aug, [facility] [place] [facility] [address] [id number] [place] [address] Jul, [facility] [place] [facility] [address] [id number] [place] [address] Jul, [facility] [place] [facility] [address] [id number] [place] [address] 16 Jul, 2011 [facility] [place] [facility] [address] [id number] [place] [address] 14 Jul, 2011 [facility] [place] [facility] [address] [id number] [place] [address] 07 Jul, 2011 [facility] [place] [facility] [address] [id number] [place] [address] 02 Jul, 2011 [facility] [place] [facility] [address] [id number] [place] [address] 21 Jul, 2011 [facility] [place] [facility] [address] [id number] [place] [address] 15 Jul, 2011 [facility] [place] [facility] [address] [id number] [place] [address] 13 Jul, 2011 [facility] [place] [facility] [address] [id number] [place] [address] 03 Jul, 2011 [facility] [place] [facility] [address] [id number] [place] [address] 02 Jul, 2011 [facility] [place] [facility] [address] [id number] [place] [address] Jun, [facility] [place] [facility] [address] [id number] [place] [address] 24 Jun, 2011 [facility] [place] [facility] [address] [id number] [place] [address] Jun, [facility] [place] [facility] [address] [id number] [place] [address] Jun, [facility] [place] [facility] [address] [id number] [place] [address] Jun, [facility] [address] [id number] [place] [address] 05 Jun, 2011 [facility] [address] [id number] [place] [address] Jun, [facility] [address] [id number] [place] [address] May, [facility] [address] [id number] [place] [address] May, [facility] [address] [id number] [place] [address] May, [facility] [address] [id number] [place] [address] 14 May, 2011 [facility] [address] [id number] [place] [address] 14 May, 2011 [facility] [address] [id number] [place] [address] May, [facility] [address] [id number] [place] [address] May, [facility] [address] [id number] [place] [address] May, [facility] [address] [id number] [place] [address] May, [facility] [address] [id number] [place] [address] May, [facility] [id number] [place] [address] 15 Apr, 2011 [facility] [address] [id number] [place] [address] Apr, [facility] [address] [id number] [place] [address] Apr, [facility] [address] [id number] [place] [address] Apr, [facility] [id number] [place] [address] Mar, [facility] [address] [id number] [place] [address] 24 Mar, 2011 [facility] [address] [id number] [place] [address] Mar, [facility] [address] [facility] [id number] [place] [address] Mar, IMMUNIZATIONS No Known Immunizations SOCIAL HISTORY [...]
--- OUTSIDE RECORDS SUMMARY | 2020-01-03 18:16 | XMS REPORT ---
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 Name Role Phone ROMMEL Petersen Unavailable PROBLEMS Type Condition ICD9-CM Code LFB08-DS Code Onset Dates Condition S tatus SNOMED Code Problem FRANCIS (generalized anxiety disorder) F41.1 Active 33804420 Problem Thoracic disc herniation M51.24 Activ e 800514019 Problem Major depressive disorder in partial remission F32 .4 Active 25939652 Problem Paroxysmal tachycardia I47.9 Active 48774153 Problem Slow transit constipation K59.01 Acti ve 81857535 Problem Constipation, unspecified constipation type K59.00 Active 97755952 Problem Obesity (BMI 30.0-34.9) E66.9 Active [id number] Problem Seizure disorder G40.909 Active 128 595206 Problem High blood pressure I10 Active 23582242 Problem Conversion disorder (or hysterical neurosis, conversion ty pe) F44.9 Active 29352873 Problem Mild episode of recurrent major depressive disorder F33.0 Active 497007557 Problem Restless leg syndrome G25.81 Active 84555181 Problem Other chronic pain G89.29 Active 8 6026832 Problem Mild intermittent asthma without complication J45. 20 Active 942832999 ALLERGIES No Information ENCOUNTERS Encounter Location Date Diagnosis [facility] [address] [id number] [place] [address] Jul, [facility] [address] [address] Jul, Major depressive disorder in partial rem ission F32.4 ; FRANCIS (generalized anxiety disorder) F41.1 ; Restless leg syndrome G25.81 and High blood pressure I10 [facility] [address] [id number] [place] [address] Jul, [place] [id number] [place] [address] Jul, [facility] [id number] [place] [address] Jun, [facility] [id number] [place] [address] May, [facility] [address] [address] Apr, [facility] [address] [address] Apr, [facility] [address] [address] Mar, [facility] [address] [address] Mar, Major depressive disorder in partial rem ission F32.4 ; FRANCIS (generalized anxiety disorder) F41.1 and Restless leg syndrome G25.81 [facility] [id number] [place] [address] Mar, Obesity (BMI 30.0-34.9) E66.9 [facility] [id number] [place] [address] Jan, [facility] [address] [facility] [id number] [address] [place] [address] Jan, Burn T30.0 [facility] [address] [id number] [place] [address] Dec, [facility] [id number] [place] [address] Nov, [facility] [id number] [place] [address] Nov, [facility] [address] [facility] [id number] [place] [id number] Nov, Dental examination Z01.20 [facility] [id number] [place] [address] September, [facility] [address] [id number] [place] [id number] September, Decay, teeth K02.9 and Dental examinatio n Z01.20 [facility] [address] [id number] [place] [id number] September, Dental examination Z01.20 [facility] [address] [address] September, FRANCIS (generalized anxiety disorder) F41.1 ; Major depressive disorder in partial remission F32.4 and Restless leg syndrome G25.81 [place] [address] [address] Aug, [place] [address] [address] Jul, [address] [address] Jul, Encounter to discuss test results Z71.[address] [address] Jul, Pelvic pain R10.2 ; Screening for breast cancer Z12.31 and Obesity (BMI 30.0-34.9) E66.9 [place] [id number] [place] [address] Jul, Mild intermittent asthma without complic ation J45.20 [place] [address] [address] Jul, Major depressive disorder in partial rem ission F32.4 and FRANCIS (generalized anxiety disorder) F41.1 [place] [address] [address] Jul, [place] [address] [address] Jun, [place] [address] [address] May, Major depressive disorder in partial rem ission F32.4 ; FRANCIS (generalized anxiety disorder) F41.1 and Restless leg syndrome G25.81 [facility] [address] [address] Apr, [facility] [id number] [place] [address] Mar, [facility] [address] [facility] [id number] [address] [place] [address] Jan, Pain in thoracic spine M54.6 and Other chronic pain G89.29 [facility] [address] [address] Jan, [facility] [address] [address] Jan, Mild episode of recurrent major depressi ve disorder F33.0 ; FRANCIS (generalized anxiety disorder) F41.1 and Restless leg syndrome G25.81 [facility] [address] [address] Dec, [facility] [address] [address] Dec, Hospital discharge follow-up Z09 [facility] [address] [address] Nov, [facility] [address] [address] Nov, [facility] [address] [address] September, [facility] [address] [address] September, [facility] [address] [address] September, Major depressive disorder in partial rem ission F32.4 ; FRANCIS (generalized anxiety disorder) F41.1 and Restless leg syndrome G25.81 [facility] [address] [address] September, [facility] [address] [id number] [place] [address] Jul, [facility] [address] [address] Jul, Dorsalgia, unspecified M54.9 [facility] [id number] [place] [address] Jul, Mild episode of recurrent major depressi ve disorder F33.0 and FRANCIS (generalized anxiety disorder) F41.1 [facility] [id number] [place] [address] May, [facility] [address] [facility] [id number] [address] [place] [address] May, Dysuria R30.0 and Acute cyst itis with hematuria N30.01 [place] [address] [address] Apr, [facility] [address] [address] Apr, Major depressive disorder in partial rem ission F32.4 and FRANCIS (generalized anxiety disorder) F41.1 [place] [address] [address] Mar, Paroxysmal tachycardia I47.9 [place] [address] [address] Mar, Paroxysmal tachycardia I47.9 and Pain of left lower extremity M79.605 [place] [id number] [place] [address] Mar, FRANCIS (generalized anxiety disorder) F41.1 and Major depressive disorder in partial remission F32.4 [place] [address] [address] Jan, [facility] [address] [address] Jan, [place] [address] [address] Jan, [facility] [address] [place] [address] Dec, Constipation, unspecified co nstipation type K59.00 [facility] [address] [address] Dec, [facility] [address] [address] Nov, [place] [address] [address] Nov, Major depressive disorder in partial rem ission F32.4 and FRANCIS (generalized anxiety disorder) F41.[address] [facility] [address] [place] [id number] [place] [address] Oct, Abdominal pain R10.9 and Slo w transit constipation K59.01 [place] [address] [address] Aug, Major depressive disorder in partial rem ission F32.4 ; FRANCIS (generalized anxiety disorder) F41.1 ; Conversion disorder (or hysterical neurosis, conversion type) F44.9 ; Dorsalgia, unspecified M54.9 and Long-term use of high-risk medication Z79.899 [place] [address] [address] Aug, [place] [address] [address] Jul, Paroxysmal tachycardia I47.9 [place] [address] [address] Jul, Paroxysmal tachycardia I47.9 [place] [address] [address] Jun, [place] [address] [address] Jun, Major depressive disorder in partial rem ission F32.4 ; FRANCIS (generalized anxiety disorder) F41.1 and Conversion disorder (or hysterical neurosis, conversion type) F44.9 [facility] [address] [place] [id number] [place] [address] May, Pelvic pain R10.2 [facility] [address] [place] [id number] [place] [address] Apr, Gastroenteritis K52.9 [facility] [address] [place] [address] [id number] [place] [address] Apr, Blood in urine R31.9 and Acu te cystitis with hematuria N30.01 [place] [address] [address] Apr, Major depressive disorder in partial rem ission F32.4 ; FRANCIS (generalized anxiety disorder) F41.1 and Conversion disorder (or hysterical neurosis, conversion type) F44.9 [place] [address] [address] Apr, [place] [address] [address] Apr, Abnormal mammogram R92.8 [place] [address] [address] Mar, [place] [address] [address] Mar, Gastroenteritis K52.9 and Seizure disord er G40.909 [place] [address] [address] Dec, [facility] [address] [place] [id number] [place] [address] Dec, Other headache syndrome G44. 89 [facility] [address] [address] Dec, [place] [address] [address] Dec, Thoracic disc herniation M51.24 [facility] [id number] [place] [address] Dec, [facility] [id number] [place] [address] Nov, Major depressive disorder in partial rem ission F32.4 and FRANCIS (generalized anxiety disorder) F41.1 [facility] [id number] [place] [address] Nov, [facility] [address] [address] Nov, Dorsalgia, unspecified M54.9 [facility] [address] [address] Oct, [facility] [address] [address] September, [facility] [address] [address] Aug, [facility] [id number] [place] [address] Aug, Major depressive disorder in partial rem ission F32.4 and FRANCIS (generalized anxiety disorder) F41.1 [facility] [id number] [place] [address] Aug, [facility] [id number] [place] [address] Jul, Abnormal mammogram R92.8 [facility] [id number] [place] [address] Jul, [facility] [id number] [place] [address] Jul, [facility] [id number] [place] [address] 14 Jul, 2015 [facility] [id number] [place] [address] Jul, [facility] [address] [address] Jul, [facility] [address] [address] Jul, [facility] [address] [address] Jun, Major depressive disorder in partial rem ission F32.4 and FRANCIS (generalized anxiety disorder) F41.1 [facility] [address] [address] Jun, [facility] [address] [address] May, [facility] [address] [address] Apr, [facility] [address] [address] Mar, Major depressive disorder, recurrent epi sode, moderate F33.1 ; PTSD (post-traumatic stress disorder) F43.10 and FRANCIS (generalized anxiety disorder) F41.1 [facility] [address] [address] Mar, [facility] [address] [address] Mar, [facility] [address] [address] Mar, [facility] [address] [address] Mar, [facility] [address] [address] 23 Jan, 2015 [facility] [address] [address] 15 Jan, 2015 [facility] [address] [address] 15 Jan, 2014 [facility] [address] [address] 14 Jan, 2015 Thoracic disc herniation 722.11 [facility] [id number] [place] [address] Dec, [facility] [id number] [place] [address] Dec, [facility] [id number] [place] [address] Dec, [facility] [id number] [place] [address] Nov, [facility] [id number] [place] [address] Nov, Generalized anxiety disorder 300.02 ; Po sttraumatic stress disorder 309.81 and Major depressive disorder, recurrent episode, moderate 296.32 [facility] [id number] [place] [address] Nov, [facility] [id number] [place] [address] Nov, [facility] [id number] [place] [address] Oct, [facility] [id number] [place] [address] Oct, [facility] [id number] [place] [address] Oct, [facility] [id number] [place] [address] September, [facility] [id number] [place] [address] September, [facility] [id number] [place] [address] 14 Aug, 2014 [facility] [id number] [place] [address] Aug, [facility] [id number] [place] [address] Jul, [facility] [id number] [place] [address] Jul, [facility] [address] [id number] [place] [address] Jul, [facility] [address] [id number] [facility] [place] [address] Jul, [facility] [address] [id number] [place] [address] Jul, [facility] [address] [id number] [place] [address] Jul, [facility] [address] [facility] [id number] [place] [address] Jul, [facility] [address] [id number] [place] [address] Jul, [facility] [address] [id number] [place] [address] Jul, [facility] [address] [id number] [place] [address] Jul, [facility] [address] [id number] [place] [address] Jun, [facility] [address] [id number] [place] [address] Jun, [facility] [address] [id number] [place] [address] Jun, [facility] [address] [id number] [place] [address] May, [facility] [address] [id number] [place] [address] Apr, [facility] [address] [id number] [place] [address] Apr, [facility] [address] [id number] [place] [address] Apr, [facility] [address] [id number] [place] [address] Apr, [facility] [address] [facility] [id number] [place] [address] 07 Apr, 2014 [facility] [address] [facility] [id number] [place] [address] Apr, [facility] [address] [id number] [place] [address] Apr, [facility] [address] [id number] [place] [address] Apr, [facility] [address] [id number] [place] [address] Mar, [facility] [address] [id number] [place] [address] 24 Mar, 2014 [facility] [address] [id number] [place] [address] 24 Mar, 2014 [facility] [address] [id number] [place] [address] 24 Mar, 2014 [facility] [address] [id number] [place] [address] 24 Mar, 2014 [facility] [address] [id number] [place] [address] 24 Mar, 2014 [facility] [address] [id number] [place] [address] Mar, [facility] [address] [id number] [place] [address] Mar, [facility] [address] [id number] [place] [address] Mar, [facility] [address] [id number] [place] [address] Mar, [facility] [address] [id number] [place] [address] 17 Mar, 2014 [facility] [address] [id number] [place] [address] 14 Mar, 2014 [facility] [address] [id number] [place] [address] 14 Mar, 2014 [facility] [address] [id number] [place] [address] 07 Mar, 2013 [facility] [address] [id number] [place] [address] 07 Mar, 2013 [facility] [address] [id number] [place] [address] 06 Mar, 2013 [facility] [address] [id number] [place] [address] 06 Oct, 2013 [facility] [address] [id number] [place] [address] 19 Sep, 2013 [facility] [address] [id number] [place] [address] 19 Sep, 2013 [facility] [address] [id number] [place] [address] 09 Sep, 2013 [facility] [address] [id number] [place] [address] 09 Sep, 2013 [facility] [address] [id number] [place] [address] 05 Sep, 2013 [facility] [address] [id number] [place] [address] 05 Sep, 2013 [facility] [address] [id number] [place] [address] 05 Sep, 2013 [facility] [address] [id number] [place] [address] 05 Sep, 2013 [facility] [address] [id number] [place] [address] 03 Sep, 2013 [facility] [address] [id number] [place] [address] 02 Sep, 2013 [facility] [address] [id number] [place] [address] 02 Sep, 2013 [facility] [address] [id number] [place] [address] 02 Sep, 2013 [facility] [address] [id number] [place] [address] Jan, [facility] [address] [facility] [id number] [place] [address] Dec, [facility] [address] [facility] [id number] [place] [address] Dec, [facility] [address] [id number] [place] [address] Dec, [facility] [address] [id number] [place] [address] Dec, [facility] [address] [id number] [place] [address] Dec, [facility] [address] [id number] [place] [address] Dec, [address] [facility] [address] [facility] [id number] Dec, [address] [facility] [address] [facility] [id number] Dec, [facility] [address] [id number] [place] [address] Dec, [facility] [address] [id number] [place] [address] Dec, [facility] [address] [id number] [place] [address] Dec, [facility] [address] [id number] [place] [address] Dec, [facility] [address] [facility] [id number] [place] [address] Nov, [facility] [address] [facility] [id number] [place] [address] Nov, [facility] [address] [facility] [id number] [place] [address] Nov, [facility] [address] [id number] [place] [address] Nov, [facility] [address] [id number] [place] [address] Nov, [facility] [address] [facility] [id number] [facility] [place] [address] Nov, [facility] [address] [facility] [id number] [facility] [place] [address] Nov, [facility] [address] [facility] [id number] [facility] [place] [address] Nov, [facility] [address] [facility] [id number] [facility] [place] [address] Nov, [facility] [address] [facility] [id number] [facility] [place] [address] Nov, [facility] [address] [facility] [id number] [facility] [place] [address] Nov, [facility] [address] [id number] [facility] [place] [address] Nov, [facility] [address] [id number] [facility] [place] [address] Nov, [facility] [address] [facility] [id number] [facility] [place] [address] Oct, [facility] [address] [facility] [id number] [facility] [place] [address] Oct, [facility] [address] [id number] [place] [address] Oct, [facility] [address] [id number] [place] [address] Oct, [facility] [address] [facility] [id number] [facility] [address] Oct[facility] [address] [facility] [id number] [place] [address] Oct, [facility] [address] [facility] [id number] [place] [address] Oct, [facility] [address] [id number] [facility] [place] [address] Oct, [facility] [address] [facility] [id number] [facility] [place] [address] Oct, [facility] [address] [id number] [place] [address] Oct, [facility] [address] [facility] [id number] [place] [address] Oct, [facility] [address] [id number] [place] [address] Oct, [facility] [address] [facility] [id number] [facility] [place] [address] September, [facility] [address] [id number] [facility] [place] [address] September, [facility] [address] [id number] [place] [address] September, [facility] [address] [id number] [place] [address] September, [facility] [address] [id number] [place] [address] Aug, [facility] [address] [facility] [id number] [facility] [place] [address] Aug, [facility] [address] [id number] [place] [address] Aug, [facility] [address] [id number] [place] [address] Aug, [facility] [address] [id number] [place] [address] Aug, [facility] [address] [facility] [id number] [place] [address] Aug, [facility] [address] [id number] [place] [address] Aug, [facility] [address] [id number] [place] [address] Jul, [facility] [address] [id number] [place] [address] Jul, [facility] [address] [id number] [place] [address] Jul, [facility] [address] [id number] [place] [address] Jul, [facility] [address] [id number] [place] [address] Jul, [facility] [address] [id number] [place] [address] Jul, [facility] [address] [id number] [place] [address] Jul, [facility] [address] [id number] [place] [address] Jul, [facility] [address] [id number] [place] [address] 18 Jul, 2013 [facility] [address] [id number] [place] [address] 18 Jul, 2013 [facility] [address] [id number] [place] [address] 18 Jul, 2013 [facility] [address] [id number] [place] [address] 18 Jul, 2013 [facility] [address] [id number] [place] [address] 14 Jul, 2013 [facility] [address] [id number] [place] [address] 14 Jul, 2013 [facility] [address] [id number] [place] [address] 11 Jul, 2013 [facility] [address] [id number] [place] [address] Jul, [facility] [address] [id number] [place] [address] Jul, [facility] [address] [id number] [place] [address] Jul, [facility] [address] [id number] [place] [address] 31 Jun, 2013 [facility] [address] [facility] [id number] [place] [address] 31 Jun, 2013 [facility] [address] [id number] [place] [address] 15 Jun, 2013 [facility] [address] [id number] [place] [address] 15 Jun, 2013 [facility] [address] [id number] [place] [address] 14 Jun, 2013 [facility] [address] [id number] [place] [address] 14 Jun, 2013 [facility] [address] [id number] [place] [address] 14 Jun, 2013 [facility] [address] [id number] [place] [address] 14 Jun, 2013 [facility] [address] [id number] [place] [address] 14 Jun, 2013 [facility] [address] [id number] [place] [address] 14 Jun, 2013 [facility] [address] [id number] [place] [address] 27 May, 2013 [facility] [address] [id number] [place] [address] 27 May, 2013 [facility] [address] [id number] [place] [address] 26 May, 2013 [facility] [address] [id number] [place] [address] 19 May, 2013 [facility] [address] [id number] [place] [address] 19 May, 2013 [facility] [address] [id number] [place] [address] 16 May, 2013 [facility] [address] [id number] [place] [address] 16 May, 2013 [facility] [address] [id number] [place] [address] 16 May, 2012 [facility] [address] [id number] [place] [address] 16 May, 2012 [facility] [address] [id number] [place] [address] 13 May, 2013 [facility] [address] [id number] [place] [address] 13 May, 2013 [facility] [address] [id number] [place] [address] 11 May, 2013 [facility] [address] [id number] [place] [address] 20 Apr, 2013 [facility] [address] [id number] [place] [address] 18 Apr, 2013 [facility] [address] [id number] [place] [address] 18 Apr, 2013 [facility] [address] [id number] [place] [address] 13 Apr, 2013 [facility] [address] [id number] [place] [address] Apr, [facility] [address] [id number] [place] [address] 08 Apr, 2013 [facility] [address] [id number] [place] [address] 08 Apr, 2013 [facility] [address] [id number] [place] [address] 07 Apr, 2013 [facility] [address] [id number] [place] [address] 07 Apr, 2013 [facility] [address] [id number] [place] [address] 07 Apr, 2013 [facility] [address] [id number] [place] [address] 07 Apr, 2013 [facility] [address] [id number] [place] [address] Mar, [facility] [address] [facility] [id number] [place] [address] Mar, [facility] [address] [facility] [id number] [place] [address] Mar, [facility] [address] [id number] [place] [address] Mar, [facility] [address] [id number] [place] [address] Mar, [facility] [address] [facility] [id number] [place] [address] Mar, [facility] [address] [id number] [place] [address] Mar, [facility] [address] [id number] [place] [address] Mar, [facility] [address] [id number] [place] [address] Mar, [facility] [address] [id number] [place] [address] Mar, [facility] [address] [id number] [place] [address] Mar, [facility] [address] [id number] [place] [address] Mar, [facility] [address] [id number] [place] [address] 30 Jan, 2012 [facility] [address] [id number] [place] [address] 25 Jan, 2012 [facility] [address] [id number] [place] [address] 20 Jan, 2012 [facility] [address] [id number] [place] [address] 10 Jan, 2012 [facility] [address] [id number] [place] [address] Dec, [facility] [address] [id number] [facility] [place] [address] Dec, [facility] [address] [id number] [facility] [place] [address] Dec, [facility] [address] [facility] [id number] [facility] [place] [address] Dec, [facility] [address] [id number] [place] [address] Dec, [facility] [address] [facility] [id number] [facility] [place] [address] Dec, [facility] [address] [id number] [facility] [place] [address] Dec, [facility] [address] [id number] [place] [address] Dec, [facility] [address] [id number] [place] [address] Dec, [facility] [address] [id number] [place] [address] Nov, [facility] [address] [id number] [facility] [place] [address] Nov, [facility] [address] [id number] [place] [address] Nov, [facility] [address] [id number] [place] [address] Nov, [facility] [address] [id number] [place] [address] Nov, [facility] [address] [facility] [id number] [place] [address] Nov, [facility] [address] [id number] [place] [address] Nov, [facility] [address] [id number] [place] [address] Nov, [facility] [address] [id number] [place] [address] Oct, [facility] [address] [id number] [place] [address] Oct, [facility] [address] [id number] [place] [address] Oct, [facility] [address] [id number] [place] [address] Oct, [facility] [address] [id number] [place] [address] Oct, [facility] [address] [id number] [place] [address] Oct, [facility] [address] [id number] [place] [address] Oct, [facility] [address] [id number] [place] [address] Oct, [facility] [address] [id number] [place] [address] Oct, [facility] [address] [id number] [place] [address] 18 Oct, 2012 [facility] [address] [id number] [place] [address] 17 Oct, 2012 [facility] [address] [id number] [place] [address] 14 Oct, 2012 [facility] [address] [id number] [place] [address] 07 Oct, 2012 [facility] [address] [id number] [place] [address] September, [facility] [address] [id number] [place] [address] September, [facility] [address] [id number] [place] [address] September, [facility] [address] [id number] [place] [address] Aug, [facility] [address] [id number] [place] [address] 24 Aug, 2012 [facility] [address] [facility] [id number] [facility] [place] [address] Aug, [facility] [address] [id number] [facility] [place] [address] 18 Aug, 2012 [facility] [address] [id number] [facility] [place] [address] 18 Aug, 2012 [facility] [address] [id number] [facility] [place] [address] 08 Aug, 2012 [facility] [address] [id number] [facility] [address] 05 Aug, 2012 [facility] [address] [id number] [facility] [address] Jul, [facility] [address] [id number] [place] [address] Jul, [facility] [address] [id number] [place] [address] Jul, [facility] [address] [id number] [place] [address] Jul, [facility] [address] [id number] [place] [address] Jul, [facility] [address] [id number] [place] [address] Jul, [facility] [address] [id number] [place] [address] Jul, [facility] [address] [id number] [facility] [address] Jul, [facility] [address] [id number] [place] [address] Jul, [facility] [address] [id number] [place] [address] Jul, [facility] [address] [id number] [place] [address] Jul, [facility] [address] [id number] [place] [address] Jul, [facility] [address] [id number] [place] [address] Jul, [facility] [address] [id number] [place] [address] Jun, [facility] [address] [id number] [place] [address] Jun, [facility] [address] [id number] [place] [address] Jun, [facility] [address] [id number] [place] [address] Jun, [facility] [address] [id number] [place] [address] 15 Jun, 2012 [facility] [address] [id number] [place] [address] Jun, [facility] [address] [id number] [place] [address] Jun, [facility] [address] [id number] [place] [address] May, [facility] [address] [id number] [place] [address] May, [facility] [address] [id number] [place] [address] May, [facility] [address] [id number] [place] [address] May, [facility] [address] [id number] [place] [address] May, [facility] [address] [id number] [place] [address] 24 May, 2012 [facility] [address] [id number] [place] [address] May, [facility] [address] [id number] [place] [address] May, [facility] [address] [id number] [place] [address] May, [facility] [address] [id number] [place] [address] May, [facility] [address] [id number] [place] [address] Apr, [facility] [address] [id number] [place] [address] Apr, [facility] [address] [id number] [place] [address] Apr, [facility] [address] [id number] [place] [address] Apr, [facility] [address] [id number] [place] [address] Apr, [facility] [address] [id number] [place] [address] Apr, [facility] [address] [id number] [place] [address] Apr, [facility] [address] [id number] [place] [address] Apr, [facility] [address] [id number] [place] [address] Apr, [facility] [address] [id number] [place] [address] Apr, [facility] [address] [id number] [place] [address] Apr, [facility] [address] [id number] [place] [address] Apr, [facility] [address] [id number] [place] [address] Mar, [facility] [address] [id number] [place] [address] Mar, [facility] [address] [id number] [place] [address] 30 Mar, 2011 [facility] [address] [id number] [place] [address] Mar, 2011 [facility] [address] [id number] [place] [address] Mar, 2011 [facility] [address] [id number] [place] [address] Mar, 2011 [facility] [address] [id number] [place] [address] Mar, 2011 [facility] [address] [id number] [place] [address] Mar, 2011 [facility] [address] [id number] [place] [address] Mar, 2011 [facility] [address] [id number] [place] [address] Mar, 2011 [facility] [address] [id number] [place] [address] Mar, 2011 [facility] [address] [id number] [place] [address] Mar, [facility] [address] [id number] [place] [address] Mar, [facility] [address] [id number] [place] [address] Mar, [facility] [address] [id number] [place] [address] Mar, [facility] [address] [id number] [place] [address] Mar, [facility] [address] [id number] [place] [address] 25 Jan, 2011 [facility] [address] [id number] [place] [address] 24 Jan, 2011 [facility] [address] [id number] [place] [address] 22 Jan, 2011 [facility] [id number] [place] [address] 22 Jan, 2011 [facility] [address] [id number] [place] [address] 21 Jan, 2012 [facility] [address] [id number] [place] [address] 18 Jan, 2012 [facility] [address] [id number] [place] [address] 14 Jan, 2012 [facility] [address] [id number] [place] [address] 07 Jan, 2012 [facility] [address] [id number] [place] [address] 15 Dec, 2011 [facility] [address] [id number] [place] [address] Dec, [facility] [address] [id number] [place] [address] Dec, [facility] [address] [id number] [place] [address] Dec, [facility] [address] [id number] [place] [address] Dec, [facility] [address] [id number] [place] [address] Dec, [facility] [address] [id number] [place] [address] Dec, [facility] [address] [id number] [place] [address] Nov, [facility] [address] [id number] [place] [address] Oct, [facility] [address] [id number] [place] [address] Aug, [facility] [address] [id number] [place] [address] Jul, [facility] [address] [id number] [place] [address] 19 Jul, 2011 [facility] [address] [facility] [id number] [facility] [place] [address] 16 Jul, 2011 [facility] [address] [id number] [facility] [place] [address] 14 Jul, 2011 [facility] [address] [id number] [facility] [place] [address] 07 Jul, 2011 [facility] [address] [id number] [place] [address] 02 Jul, 2011 [facility] [address] [facility] [id number] [facility] [place] [address] Jul, [facility] [address] [id number] [place] [address] 15 Jul, 2011 [facility] [address] [id number] [place] [address] 13 Jul, 2011 [facility] [address] [id number] [place] [address] Jul, [facility] [address] [id number] [place] [address] Jul, [facility] [address] [id number] [place] [address] Jun, [facility] [address] [id number] [place] [address] 24 Jun, 2011 [facility] [address] [id number] [place] [address] Jun, [facility] [address] [id number] [place] [address] Jun, [facility] [address] [id number] [place] [address] Jun, [facility] [address] [id number] [place] [address] 05 Jun, 2011 [facility] [address] [id number] [place] [address] Jun, [facility] [address] [id number] [place] [address] 28 May, 2011 [facility] [address] [id number] [place] [address] May, [facility] [address] [id number] [place] [address] May, [facility] [address] [id number] [place] [address] 14 May, 2011 [facility] [address] [id number] [place] [address] 14 May, 2011 [facility] [address] [id number] [place] [address] May, [facility] [address] [id number] [place] [address] May, [facility] [address] [id number] [place] [address] May, [facility] [address] [id number] [place] [address] 06 May, 2011 [facility] [address] [id number] [place] [address] May, [facility] [address] [id number] [place] [address] 15 Apr, 2011 [facility] [facility] [address] [id number] [place] [address] 15 Apr, 2011 [facility] [address] [id number] [place] [address] Apr, [facility] [address] [id number] [place] [address] Apr, [facility] [id number] [place] [address] 26 Mar, 2011 [facility] [address] [id number] [place] [address] 24 Mar, 2011 [facility] [address] [id number] [place] [address] Mar, [facility] [address] [facility] [id number] [place] [address] Mar, IMMUNIZATIONS No Known Immunizations SOCIAL HISTORY [...]
--- OUTSIDE RECORDS SUMMARY | 2020-01-03 18:16 | XMS REPORT ---
Author Author Pattie Moffett Doctor Organization [facility] Address Unknown Phone Unavailable Care Team Providers Care Criminal Legal Assistant Name Role Phone Migration, Doctor Unavailable Unavailable PROBLEMS Type Condition ICD9-CM Code [id number] Code Onset Dates Condition S tatus SNOMED Code Problem FRANCIS (generalized anxiety disorder) F41.1 Active 79890986 Problem Thoracic disc herniation M51.24 Activ e 485780098 Problem Major depressive disorder in partial remission F32 .4 Active 48522087 Problem Paroxysmal tachycardia I47.9 Active 58636974 Problem Slow transit constipation K59.01 Acti ve 38974142 Problem Constipation, unspecified constipation type K59.00 Active 90293030 Problem Obesity (BMI 30.0-34.9) E66.9 Active [id number] Problem Seizure disorder G40.909 Active 128 854131 Problem High blood pressure I10 Active 96841935 Problem Conversion disorder (or hysterical neurosis, conversion ty pe) F44.9 Active 99564689 Problem Mild episode of recurrent major depressive disorder F33.0 Active 449809423 Problem Restless leg syndrome G25.81 Active 25806934 Problem Other chronic pain G89.29 Active 8 2193268 Problem Mild intermittent asthma without complication J45. 20 Active [id number] ALLERGIES No Information ENCOUNTERS Encounter Location Date Diagnosis [place] [address] [address] Jul, [place] [address] [address] Jul, Major depressive disorder in partial rem ission F32.4 ; FRANCIS (generalized anxiety disorder) F41.1 ; Restless leg syndrome G25.81 and High blood pressure I10 [facility] [address] [address] 17 Jul, 2019 [place] [address] [address] Jul, [facility] [id number] [place] [address] Jun, [facility] [address] [address] May, [facility] [address] [place] [id number] [place] [address] Apr, [facility] [address] [address] Apr, [facility] [address] [address] Mar, [facility] [address] [address] Mar, Major depressive disorder in partial rem ission F32.4 ; FRANCIS (generalized anxiety disorder) F41.1 and Restless leg syndrome G25.81 [facility] [address] [address] Mar, Obesity (BMI 30.0-34.9) E66.9 [facility] [address] [place] [id number] [place] [address] Jan, [facility] [address] [facility] [id number] [address] [place] [address] Jan, Burn T30.0 [facility] [id number] [place] [address] Dec, [facility] [address] [address] Nov, [facility] [id number] [place] [address] Nov, [facility] [address] [id number] [place] [id number] Nov, Dental examination Z01.20 [facility] [id number] [place] [address] September, [facility] [address] [id number] [place] [id number] September, Decay, teeth K02.9 and Dental examinatio n Z01.20 [facility] [address] [id number] [place] [id number] September, Dental examination Z01.20 [facility] [address] [place] [id number] [place] [address] September, FRANCIS (generalized anxiety disorder) F41.1 ; Major depressive disorder in partial remission F32.4 and Restless leg syndrome G25.81 [facility] [address] [address] Aug, [place] [address] [address] Jul, [place] [address] [address] Jul, Encounter to discuss test results Z71.2 [place] [address] [address] Jul, Pelvic pain R10.2 ; Screening for breast cancer Z12.31 and Obesity (BMI 30.0-34.9) E66.9 [place] [address] [address] Jul, Mild intermittent asthma without complic ation J45.20 [place] [address] [address] Jul, Major depressive disorder in partial rem ission F32.4 and FRANCIS (generalized anxiety disorder) F41.1 [facility] [address] [address] Jul, [facility] [address] [address] Jun, [place] [address] [address] May, Major depressive disorder in partial rem ission F32.4 ; FRANCIS (generalized anxiety disorder) F41.1 and Restless leg syndrome G25.81 [place] [address] [address] Apr, [facility] [address] [address] Mar, [facility] [address] [facility] [id number] [address] [place] [address] 21 Jan, 2018 Pain in thoracic spine M54.6 and Other chronic pain G89.29 [facility] [address] [address] 14 Jan, 2018 [facility] [address] [address] 11 Jan, 2018 Mild episode of recurrent major depressi ve disorder F33.0 ; FRANCIS (generalized anxiety disorder) F41.1 and Restless leg syndrome G25.81 [facility] [address] [address] Dec, [facility] [address] [address] Dec, Hospital discharge follow-up Z09 [facility] [address] [address] Nov, [facility] [address] [address] Nov, [facility] [address] [address] September, [facility] [address] [address] September, [facility] [address] [address] September, Major depressive disorder in partial rem ission F32.4 ; FRANCIS (generalized anxiety disorder) F41.1 and Restless leg syndrome G25.81 [facility] [address] [address] September, [facility] [address] [address] Jul, [place] [address] [address] Jul, Dorsalgia, unspecified M54.9 [place] [address] [address] Jul, Mild episode of recurrent major depressi ve disorder F33.0 and FRANCIS (generalized anxiety disorder) F41.1 [place] [address] [address] May, [facility] [address] [place] [id number] [place] [address] May, Dysuria R30.0 and Acute cyst itis with hematuria N30.01 [place] [address] [address] Apr, [place] [address] [address] Apr, Major depressive disorder in partial rem ission F32.4 and FRANCIS (generalized anxiety disorder) F41.1 [place] [address] [address] Mar, Paroxysmal tachycardia I47.9 [place] [address] [address] Mar, Paroxysmal tachycardia I47.9 and Pain of left lower extremity M79.605 [place] [address] [address] Mar, FRANCIS (generalized anxiety disorder) F41.1 and Major depressive disorder in partial remission F32.4 [place] [address] [address] Jan, [place] [address] [address] 14 Jan, 2017 [place] [address] [address] Jan, [facility] [address] [place] [id number] [place] [address] Dec, Constipation, unspecified co nstipation type K59.00 [place] [address] [address] Dec, [place] [address] [address] Nov, [place] [address] [address] Nov, Major depressive disorder in partial rem ission F32.4 and FRANCIS (generalized anxiety disorder) F41.1 [facility] [place] [id number] [place] [address] Oct, Abdominal pain R10.9 and Slo w transit constipation K59.01 [place] [address] [address] Aug, Major depressive disorder in partial rem ission F32.4 ; FRANCIS (generalized anxiety disorder) F41.1 ; Conversion disorder (or hysterical neurosis, conversion type) F44.9 ; Dorsalgia, unspecified M54.9 and Long-term use of high-risk medication Z79.899 [place] [address] [address] Aug, [place] [address] [address] Jul, Paroxysmal tachycardia I47.9 [place] [address] [address] Jul, Paroxysmal tachycardia I47.9 [place] [address] [address] Jun, [place] [address] [address] Jun, Major depressive disorder in partial rem ission F32.4 ; FRANCIS (generalized anxiety disorder) F41.1 and Conversion disorder (or hysterical neurosis, conversion type) F44.9 [facility] [address] [place] [address] May, Pelvic pain R10.2 [facility] [address] [address] Apr, Gastroenteritis K52.9 [facility] [address] [address] Apr, Blood in urine R31.9 and Acu te cystitis with hematuria N30.01 [place] [address] [address] Apr, Major depressive disorder in partial rem ission F32.4 ; FRANCIS (generalized anxiety disorder) F41.1 and Conversion disorder (or hysterical neurosis, conversion type) F44.9 [place] [address] [address] Apr, [place] [address] [address] Apr, Abnormal mammogram R92.8 [place] [address] [address] Mar, [place] [address] [address] Mar, Gastroenteritis K52.9 and Seizure disord er G40.909 [place] [address] [address] Dec, [facility] [address] [place] [id number] [place] [address] Dec, Other headache syndrome G44. 89 [place] [address] [address] Dec, [place] [address] [address] Dec, Thoracic disc herniation M51.24 [place] [address] [address] Dec, [facility] [id number] [place] [address] Nov, Major depressive disorder in partial rem ission F32.4 and FRANCIS (generalized anxiety disorder) F41.1 [facility] [address] [place] [id number] [place] [address] Nov, [facility] [address] [place] [id number] [place] [address] Nov, Dorsalgia, unspecified M54.9 [facility] [address] [place] [id number] [place] [address] Oct, [facility] [address] [address] September, [facility] [address] [place] [id number] [place] [address] Aug, [facility] [address] [address] Aug, Major depressive disorder in partial rem ission F32.4 and FRANCIS (generalized anxiety disorder) F41.1 [facility] [address] [place] [id number] [place] [address] Aug, [facility] [address] [place] [id number] [place] [address] Jul, Abnormal mammogram R92.8 [facility] [address] [place] [id number] [place] [address] Jul, [facility] [address] [place] [id number] [place] [address] Jul, [facility] [id number] [place] [address] Jul, [facility] [address] [place] [id number] [place] [address] Jul, [facility] [address] [place] [id number] [place] [address] Jul, [facility] [address] [place] [id number] [place] [address] Jul, [facility] [address] [address] Jun, Major depressive disorder in partial rem ission F32.4 and FRANCIS (generalized anxiety disorder) F41.1 [facility] [address] [address] Jun, [facility] [address] [address] May, [facility] [address] [address] Apr, [facility] [address] [address] Mar, Major depressive disorder, recurrent epi sode, moderate F33.1 ; PTSD (post-traumatic stress disorder) F43.10 and FRANCIS (generalized anxiety disorder) F41.1 [facility] [address] [address] Mar, [facility] [address] [address] Mar, [facility] [address] [address] Mar, [facility] [address] [address] Mar, [facility] [address] [address] 23 Jan, 2015 [facility] [address] [address] 15 Jan, 2015 [facility] [address] [address] 15 Jan, 2015 [facility] [address] [address] 14 Jan, 2015 Thoracic disc herniation 722.11 [facility] [address] [address] Dec, [facility] [address] [place] [id number] [place] [address] Dec, [facility] [address] [place] [id number] [place] [address] Dec, [facility] [address] [place] [id number] [place] [address] Nov, [facility] [place] [address] [place] [id number] [place] [address] Nov, Generalized anxiety disorder 300.02 ; Po sttraumatic stress disorder 309.81 and Major depressive disorder, recurrent episode, moderate 296.32 [facility] [address] [place] [id number] [place] [address] Nov, [facility] [address] [place] [id number] [place] [address] Nov, [facility] [place] [address] [place] [id number] [place] [address] Oct, [facility] [address] [place] [id number] [place] [address] Oct, [facility] [address] [place] [id number] [place] [address] Oct, [facility] [address] [place] [id number] [place] [address] September, [facility] [address] [place] [id number] [place] [address] September, [facility] [address] [place] [id number] [place] [address] Aug, [facility] [address] [place] [id number] [place] [address] Aug, [facility] [address] [place] [id number] [place] [address] Jul, [facility] [address] [place] [id number] [place] [address] Jul, [facility] [address] [place] [id number] [place] [address] 17 Jul, 2014 [facility] [id number] [facility] [place] [address] 17 Jul, 2014 [facility] [id number] [facility] [place] [address] 16 Jul, 2014 [facility] [id number] [place] [address] 16 Jul, 2014 [facility] [id number] [facility] [place] [address] Jul, [facility] [address] [facility] [id number] [facility] [place] [address] Jul, [facility] [id number] [place] [address] Jul, [facility] [id number] [place] [address] Jul, [facility] [id number] [place] [address] Jun, [facility] [id number] [place] [address] Jun, [facility] [id number] [place] [address] Jun, [facility] [id number] [place] [address] May, [facility] [id number] [place] [address] Apr, [facility] [id number] [place] [address] Apr, [facility] [id number] [place] [address] Apr, [facility] [id number] [place] [address] Apr, [facility] [id number] [place] [address] Apr, [facility] [id number] [place] [address] 07 Apr, 2013 [facility] [address] [facility] [id number] [place] [address] Apr, [facility] [id number] [place] [address] Apr, [facility] [id number] [place] [address] Mar, [facility] [id number] [place] [address] 24 Mar, 2014 [facility] [id number] [place] [address] 24 Mar, 2014 [facility] [id number] [place] [address] Mar, [facility] [id number] [place] [address] Mar, [facility] [id number] [place] [address] Mar, [facility] [id number] [place] [address] 24 Mar, 2014 [facility] [id number] [place] [address] Mar, [facility] [id number] [place] [address] Mar, [facility] [id number] [place] [address] Mar, [facility] [id number] [place] [address] 17 Mar, 2014 [facility] [id number] [place] [address] 14 Mar, 2014 [facility] [id number] [place] [address] 14 Mar, 2014 [facility] [id number] [place] [address] Mar, 2013 [facility] [id number] [place] [address] 07 Mar, 2013 [facility] [id number] [place] [address] Mar, 2013 [facility] [id number] [place] [address] Oct, 2013 [facility] [id number] [place] [address] 19 Sep, 2013 [facility] [id number] [place] [address] 19 Sep, 2013 [facility] [id number] [place] [address] 09 Sep, 2013 [facility] [id number] [place] [address] 09 Sep, 2013 [facility] [id number] [place] [address] 05 Sep, 2013 [facility] [id number] [place] [address] 05 Sep, 2013 [facility] [id number] [place] [address] 05 Sep, 2013 [facility] [id number] [place] [address] 05 Sep, 2013 [facility] [id number] [place] [address] 03 Sep, 2013 [facility] [id number] [place] [address] 02 Sep, 2013 [facility] [id number] [place] [address] 02 Sep, 2013 [facility] [id number] [place] [address] 02 Sep, 2013 [facility] [id number] [place] [address] 02 Sep, 2013 [facility] [id number] [place] [address] Dec, [facility] [address] [facility] [id number] [place] [address] Dec, [facility] [id number] [place] [address] Dec, [facility] [id number] [place] [address] Dec, [facility] [id number] [place] [address] Dec, [facility] [id number] [place] [address] Dec, [facility] [address] [facility] [id number] Dec, [facility] [id number] Dec, [facility] [id number] [place] [address] Dec, [facility] [id number] [place] [address] Dec, [facility] [id number] [place] [address] Dec, [facility] [id number] [place] [address] Dec, [facility] [id number] [place] [address] Nov, [facility] [id number] [place] [address] Nov, [facility] [id number] [place] [address] Nov, [facility] [id number] [place] [address] Nov, [facility] [place] [facility] [id number] [place] [address] Nov, [facility] [place] [facility] [id number] [place] [address] Nov, [facility] [place] [facility] [address] [facility] [id number] [facility] [place] [address] Nov, [facility] [place] [facility] [address] [facility] [id number] [facility] [place] [address] Nov, [facility] [place] [facility] [id number] [facility] [place] [address] Nov, [facility] [place] [facility] [address] [facility] [id number] [facility] [place] [address] Nov, [facility] [place] [facility] [address] [facility] [id number] [facility] [place] [address] Nov, [facility] [place] [facility] [address] [facility] [id number] [place] [address] Nov, [facility] [place] [facility] [id number] [facility] [place] [address] Nov, [facility] [place] [facility] [id number] [facility] [place] [address] Oct, [facility] [place] [facility] [address] [facility] [id number] [facility] [place] [address] Oct, [facility] [place] [facility] [id number] [facility] [place] [address] Oct, [facility] [place] [facility] [id number] [place] [address] Oct, [facility] [place] [facility] [id number] [place] [address] Oct, [facility] [place] [facility] [address] [facility] [id number] [facility] [place] [address] Oct, [facility] [place] [facility] [address] [facility] [id number] [place] [address] Oct, [facility] [place] [facility] [address] [facility] [id number] [place] [address] Oct, [facility] [place] [facility] [id number] [facility] [place] [address] Oct, [facility] [place] [facility] [address] [facility] [id number] [facility] [place] [address] Oct, [facility] [place] [facility] [address] [id number] [facility] [place] [address] Oct, [facility] [place] [facility] [address] [facility] [id number] [place] [address] Oct, [facility] [place] [facility] [id number] [facility] [place] [address] September, [facility] [place] [facility] [address] [facility] [id number] [facility] [place] [address] September, [facility] [place] [facility] [address] [id number] [facility] [place] [address] September, [facility] [place] [facility] [id number] [place] [address] September, [facility] [place] [facility] [id number] [place] [address] Aug, [facility] [place] [facility] [id number] [place] [address] Aug, [facility] [place] [facility] [address] [facility] [id number] [facility] [place] [address] Aug, [facility] [place] [facility] [id number] [place] [address] Aug, [facility] [place] [facility] [id number] [place] [address] Aug, [facility] [place] [facility] [id number] [place] [address] Aug, [facility] [place] [facility] [address] [facility] [id number] [place] [address] Aug, [facility] [facility] [address] [id number] [place] [address] Jul, [facility] [id number] [place] [address] Jul, [facility] [id number] [place] [address] Jul, [facility] [address] [facility] [id number] [place] [address] Jul, [facility] [id number] [place] [address] Jul, [facility] [id number] [place] [address] Jul, [facility] [id number] [place] [address] Jul, [facility] [address] [facility] [id number] [place] [address] Jul, [facility] [id number] [place] [address] Jul, [facility] [id number] [place] [address] Jul, [facility] [id number] [place] [address] Jul, [facility] [id number] [place] [address] Jul, [facility] [id number] [place] [address] Jul, [facility] [id number] [place] [address] 14 Jul, 2013 [facility] [id number] [place] [address] Jul, [facility] [id number] [place] [address] Jul, [facility] [id number] [place] [address] Jul, [facility] [id number] [place] [address] Jul, [facility] [id number] [place] [address] Jun, [facility] [id number] [place] [address] 31 Jun, 2013 [facility] [id number] [place] [address] 15 Jun, 2013 [facility] [id number] [place] [address] 15 Jun, 2013 [facility] [id number] [place] [address] 14 Jun, 2013 [facility] [id number] [place] [address] 14 Jun, 2013 [facility] [id number] [place] [address] 14 Jun, 2013 [facility] [id number] [place] [address] 14 Jun, 2013 [facility] [id number] [place] [address] 14 Jun, 2013 [facility] [id number] [place] [address] 14 Jun, 2013 [facility] [id number] [place] [address] 27 May, 2013 [facility] [id number] [place] [address] 27 May, 2013 [facility] [id number] [place] [address] 26 May, 2013 [facility] [id number] [place] [address] 19 May, 2013 [facility] [id number] [place] [address] 19 May, 2013 [facility] [id number] [place] [address] 16 May, 2013 [facility] [id number] [place] [address] 16 May, 2013 [facility] [id number] [place] [address] 16 May, 2013 [facility] [id number] [place] [address] 16 May, 2013 [facility] [id number] [place] [address] 13 May, 2013 [facility] [id number] [place] [address] 13 May, 2013 [facility] [id number] [place] [address] 11 May, 2013 [facility] [id number] [place] [address] 20 Apr, 2013 [facility] [id number] [place] [address] 18 Apr, 2013 [facility] [id number] [place] [address] 18 Apr, 2013 [facility] [id number] [place] [address] Apr, [facility] [id number] [place] [address] Apr, [facility] [id number] [place] [address] 08 Apr, 2013 [facility] [id number] [place] [address] 08 Apr, 2013 [facility] [id number] [place] [address] 07 Apr, 2013 [facility] [id number] [place] [address] 07 Apr, 2013 [facility] [id number] [place] [address] 07 Apr, 2013 [facility] [id number] [place] [address] 07 Apr, 2013 [facility] [id number] [place] [address] Mar, [facility] [id number] [place] [address] Mar, [facility] [address] [facility] [id number] [place] [address] Mar, [facility] [address] [facility] [id number] [place] [address] Mar, [facility] [id number] [place] [address] Mar, [facility] [id number] [place] [address] Mar, [facility] [address] [facility] [id number] [place] [address] Mar, [facility] [id number] [place] [address] Mar, [facility] [id number] [place] [address] Mar, [facility] [id number] [place] [address] Mar, [facility] [id number] [place] [address] 15 Mar, 2013 [facility] [id number] [place] [address] Mar, [facility] [id number] [place] [address] 30 Jan, 2013 [facility] [id number] [place] [address] 25 Jan, 2013 [facility] [id number] [place] [address] 20 Jan, 2012 [facility] [id number] [place] [address] 10 Jan, 2013 [facility] [id number] [place] [address] Dec, [facility] [id number] [place] [address] Dec, [facility] [address] [id number] [facility] [place] [address] Dec, [facility] [address] [id number] [place] [address] Dec, [facility] [address] [facility] [id number] [place] [address] Dec, [facility] [id number] [place] [address] Dec, [facility] [address] [facility] [id number] [facility] [place] [address] Dec, [facility] [address] [id number] [facility] [place] [address] Dec, [facility] [id number] [place] [address] Dec, [facility] [id number] [place] [address] Nov, [facility] [id number] [place] [address] Nov, [facility] [id number] [place] [address] Nov, [facility] [id number] [place] [address] Nov, [facility] [id number] [place] [address] Nov, [facility] [id number] [place] [address] Nov, [facility] [address] [facility] [id number] [place] [address] Nov, [facility] [id number] [place] [address] Nov, [facility] [id number] [place] [address] Oct, [facility] [id number] [place] [address] Oct, [facility] [id number] [place] [address] Oct, [facility] [id number] [place] [address] Oct, [facility] [id number] [place] [address] Oct, [facility] [id number] [place] [address] Oct, [facility] [id number] [place] [address] Oct, [facility] [id number] [place] [address] Oct, [facility] [id number] [place] [address] Oct, [facility] [id number] [place] [address] 18 Oct, 2012 [facility] [id number] [place] [address] 17 Oct, 2012 [facility] [id number] [place] [address] 14 Oct, 2012 [facility] [id number] [place] [address] 07 Oct, 2012 [facility] [id number] [place] [address] 30 Sep, 2012 [facility] [id number] [place] [address] September, [facility] [id number] [place] [address] September, [facility] [id number] [place] [address] Aug, [facility] [id number] [place] [address] Aug, [facility] [id number] [place] [address] 18 Aug, 2012 [facility] [id number] [facility] [place] [address] 18 Aug, 2012 [facility] [id number] [facility] [place] [address] 18 Aug, 2012 [facility] [id number] [place] [address] 08 Aug, 2012 [facility] [id number] [facility] [place] [address] 05 Aug, 2012 [facility] [id number] [facility] [place] [address] Jul, [facility] [id number] [place] [address] Jul, [facility] [id number] [place] [address] 08 Jul, 2012 [facility] [id number] [place] [address] 08 Jul, 2012 [facility] [id number] [place] [address] Jul, [facility] [id number] [place] [address] Jul, [facility] [id number] [place] [address] Jul, [facility] [id number] [place] [address] Jul, [facility] [id number] [place] [address] Jul, [facility] [id number] [place] [address] Jul, [facility] [id number] [place] [address] Jul, [facility] [id number] [place] [address] 06 Jul, 2012 [facility] [id number] [place] [address] Jul, [facility] [id number] [place] [address] Jun, [facility] [id number] [place] [address] Jun, [facility] [id number] [place] [address] Jun, [facility] [id number] [place] [address] Jun, [facility] [id number] [place] [address] 15 Jun, 2012 [facility] [id number] [place] [address] Jun, [facility] [id number] [place] [address] Jun, [facility] [id number] [place] [address] May, [facility] [id number] [place] [address] May, [facility] [id number] [place] [address] May, [facility] [id number] [place] [address] May, [facility] [id number] [place] [address] May, [facility] [id number] [place] [address] May, [facility] [id number] [place] [address] May, [facility] [id number] [place] [address] May, [facility] [id number] [place] [address] May, [facility] [id number] [place] [address] May, [facility] [id number] [place] [address] Apr, [facility] [id number] [place] [address] Apr, [facility] [id number] [place] [address] Apr, [facility] [id number] [place] [address] Apr, [facility] [id number] [place] [address] Apr, [facility] [id number] [place] [address] Apr, [facility] [id number] [place] [address] Apr, [facility] [id number] [place] [address] Apr, [facility] [id number] [place] [address] Apr, [facility] [id number] [place] [address] Apr, [facility] [id number] [place] [address] Apr, [facility] [id number] [place] [address] Apr, [facility] [id number] [place] [address] Mar, [facility] [id number] [place] [address] Mar, [facility] [id number] [place] [address] Mar, [facility] [id number] [place] [address] 30 Mar, 2011 [facility] [id number] [place] [address] Mar, 2011 [facility] [id number] [place] [address] Mar, 2011 [facility] [id number] [place] [address] Mar, 2011 [facility] [id number] [place] [address] Mar, 2011 [facility] [id number] [place] [address] Mar, [facility] [id number] [place] [address] Mar, [facility] [id number] [place] [address] Mar, [facility] [id number] [place] [address] Mar, [facility] [id number] [place] [address] Mar, [facility] [id number] [place] [address] Mar, [facility] [id number] [place] [address] Mar, [facility] [id number] [place] [address] Mar, [facility] [id number] [place] [address] 25 Jan, 2011 [facility] [id number] [place] [address] 24 Sep, 2011 [facility] [id number] [place] [address] 22 Jan, 2011 [facility] [id number] [place] [address] 22 Jan, 2011 [facility] [address] [id number] [place] [address] 21 Jan, 2012 [facility] [id number] [place] [address] 18 Jan, 2012 [facility] [id number] [place] [address] 14 Jan, 2012 [facility] [id number] [place] [address] 07 Jan, 2012 [facility] [id number] [place] [address] 15 Dec, 2011 [facility] [id number] [place] [address] Dec, [facility] [id number] [place] [address] Dec, [facility] [id number] [place] [address] Dec, [facility] [id number] [place] [address] Dec, [facility] [id number] [place] [address] Dec, [facility] [id number] [place] [address] Dec, [facility] [id number] [place] [address] Nov, [facility] [id number] [place] [address] Oct, [facility] [id number] [place] [address] Aug, [facility] [id number] [place] [address] Jul, [facility] [id number] [place] [address] Jul, [facility] [id number] [place] [address] 16 Jul, 2011 [facility] [address] [facility] [id number] [facility] [place] [address] 14 Jul, 2011 [facility] [id number] [facility] [place] [address] 07 Jul, 2011 [facility] [id number] [facility] [place] [address] 02 Jul, 2011 [facility] [id number] [facility] [place] [address] Jul, [facility] [address] [facility] [id number] [facility] [place] [address] 15 Jul, 2011 [facility] [id number] [place] [address] 13 Jul, 2011 [facility] [id number] [facility] [place] [address] Jul, [facility] [id number] [facility] [place] [address] Jul, [facility] [id number] [facility] [place] [address] Jun, [facility] [id number] [place] [address] Jun, [facility] [id number] [place] [address] Jun, [facility] [id number] [place] [address] Jun, [facility] [id number] [facility] [place] [address] Jun, [facility] [id number] [place] [address] Jun, [facility] [id number] [facility] [place] [address] Jun, [facility] [id number] [facility] [place] [address] May, [facility] [id number] [place] [address] May, [facility] [id number] [place] [address] May, [facility] [id number] [place] [address] 14 May, 2011 [facility] [id number] [place] [address] 14 May, 2011 [facility] [id number] [place] [address] 12 May, 2011 [facility] [id number] [place] [address] May, [facility] [id number] [place] [address] May, [facility] [id number] [place] [address] May, [facility] [id number] [place] [address] May, [facility] [id number] [place] [address] Apr, [facility] [id number] [place] [address] Apr, [facility] [id number] [place] [address] Apr, [facility] [id number] [place] [address] Apr, [facility] [id number] [place] [address] Mar, [facility] [id number] [place] [address] 24 Mar, 2011 [facility] [id number] [place] [address] Mar, [facility] [id number] [place] [address] Mar, IMMUNIZATIONS No Known Immunizations SOCIAL HISTORY [...]
--- OUTSIDE RECORDS SUMMARY | 2020-01-03 18:17 | XMS REPORT ---
Author Author Pattie YUNG Organization [facility] Address [address] [place] [address] Care Team Providers Care Vocational Counselor Name Role Phone DILSHADRAFAELARASH Unavailable PROBLEMS Type Condition ICD9-CM Code [id number] Code Onset Dates Condition S tatus SNOMED Code Problem FRANCIS (generalized anxiety disorder) F41.1 Active 83391679 Problem Thoracic disc herniation M51.24 Activ e [id number] Problem Major depressive disorder in partial remission F32 .4 Active 67410025 Problem Paroxysmal tachycardia I47.9 Active 89923880 Problem Slow transit constipation K59.01 Acti ve 85776729 Problem Constipation, unspecified constipation type K59.00 Active 68880772 Problem Obesity (BMI 30.0-34.9) E66.9 Active [id number] Problem Seizure disorder G40.909 Active 128 027732 Problem High blood pressure I10 Active 43032533 Problem Conversion disorder (or hysterical neurosis, conversion ty pe) F44.9 Active 08617693 Problem Mild episode of recurrent major depressive disorder F33.0 Active 808124807 Problem Restless leg syndrome G25.81 Active 69769341 Problem Other chronic pain G89.29 Active 8 7673709 Problem Mild intermittent asthma without complication J45. 20 Active [id number] ALLERGIES No Information ENCOUNTERS Encounter Location Date Diagnosis [facility] [address] [id number] [place] [address] Jul, [facility] [id number] [place] [address] Jul, Major depressive disorder in partial rem ission F32.4 ; FRANCIS (generalized anxiety disorder) F41.1 ; Restless leg syndrome G25.81 and High blood pressure I10 [facility] [address] [id number] [place] [address] 17 Jul, 2019 [facility] [id number] [place] [address] Jul, [facility] [id number] [place] [address] Jun, [facility] [address] [address] May, [facility] [address] [address] Apr, [facility] [address] [address] Apr, [facility] [address] [address] Mar, [facility] [address] [address] Mar, Major depressive disorder in partial rem ission F32.4 ; FRANCIS (generalized anxiety disorder) F41.1 and Restless leg syndrome G25.81 [facility] [id number] [place] [address] Mar, Obesity (BMI 30.0-34.9) E66.9 [facility] [id number] [place] [address] Jan, [facility] [address] [facility] [id number] [address] [place] [address] Jan, Burn T30.0 [facility] [address] [id number] [place] [address] Dec, [facility] [id number] [place] [address] Nov, [facility] [id number] [place] [address] Nov, [facility] [address] [id number] [place] [id number] Nov, Dental examination Z01.20 [facility] [id number] [place] [address] September, [facility] [address] [id number] [place] [id number] September, Decay, teeth K02.9 and Dental examinatio n Z01.20 [facility] [address] [facility] [place] [id number] September, Dental examination Z01.20 [place] [address] [address] September, FRANCIS (generalized anxiety disorder) F41.1 ; Major depressive disorder in partial remission F32.4 and Restless leg syndrome G25.81 [place] [address] [address] Aug, [place] [address] [address] Jul, [place] [address] [address] Jul, Encounter to discuss test results Z71.2 [place] [address] [address] Jul, Pelvic pain R10.2 ; Screening for breast cancer Z12.31 and Obesity (BMI 30.0-34.9) E66.9 [place] [address] [address] Jul, Mild intermittent asthma without complic ation J45.20 [place] [address] [address] Jul, Major depressive disorder in partial rem ission F32.4 and FRANCIS (generalized anxiety disorder) F41.1 [place] [address] [address] Jul, [place] [address] [address] Jun, [place] [address] [address] May, Major depressive disorder in partial rem ission F32.4 ; FRANCIS (generalized anxiety disorder) F41.1 and Restless leg syndrome G25.81 [facility] [address] [address] Apr, [facility] [address] [address] Mar, [facility] [address] [facility] [id number] [address] [place] [address] Jan, Pain in thoracic spine M54.6 and Other chronic pain G89.29 [facility] [address] [address] 14 Jan, 2018 [facility] [address] [address] 11 Jan, 2018 Mild episode of recurrent major depressi ve disorder F33.0 ; FRANCIS (generalized anxiety disorder) F41.1 and Restless leg syndrome G25.81 [facility] [address] [address] Dec, [facility] [address] [address] Dec, Hospital discharge follow-up Z09 [facility] [address] [address] Nov, [facility] [address] [address] Nov, [facility] [address] [address] September, [facility] [address] [address] September, [facility] [address] [address] September, Major depressive disorder in partial rem ission F32.4 ; FRANCIS (generalized anxiety disorder) F41.1 and Restless leg syndrome G25.81 [facility] [address] [address] September, [facility] [address] [address] Jul, [facility] [address] [address] Jul, Dorsalgia, unspecified M54.9 [facility] [address] [address] Jul, Mild episode of recurrent major depressi ve disorder F33.0 and FRANCIS (generalized anxiety disorder) F41.1 [facility] [address] [address] May, [facility] [address] [facility] [id number] [address] [place] [address] May, Dysuria R30.0 and Acute cyst itis with hematuria N30.01 [place] [address] [address] Apr, [facility] [address] [address] Apr, Major depressive disorder in partial rem ission F32.4 and FRANCIS (generalized anxiety disorder) F41.1 [place] [address] [address] Mar, Paroxysmal tachycardia I47.9 [place] [address] [address] Mar, Paroxysmal tachycardia I47.9 and Pain of left lower extremity M79.605 [place] [address] [address] Mar, FRANCIS (generalized anxiety disorder) F41.1 and Major depressive disorder in partial remission F32.4 [place] [address] [address] Jan, [place] [address] [address] 14 Jan, 2017 [place] [address] [address] Jan, [facility] [id number] [place] [address] Dec, Constipation, unspecified co nstipation type K59.00 [facility] [address] [address] Dec, [place] [address] [address] Nov, [place] [address] [address] Nov, Major depressive disorder in partial rem ission F32.4 and FRANCIS (generalized anxiety disorder) F41.1 [facility] [address] [id number] [address] [place] [address] Oct, Abdominal pain R10.9 and Slo w transit constipation K59.01 [place] [address] [address] Aug, Major depressive disorder in partial rem ission F32.4 ; FRANCIS (generalized anxiety disorder) F41.1 ; Conversion disorder (or hysterical neurosis, conversion type) F44.9 ; Dorsalgia, unspecified M54.9 and Long-term use of high-risk medication Z79.899 [place] [address] [address] Aug, [place] [address] [address] Jul, Paroxysmal tachycardia I47.9 [place] [address] [address] Jul, Paroxysmal tachycardia I47.9 [place] [address] [address] Jun, [place] [address] [address] Jun, Major depressive disorder in partial rem ission F32.4 ; FRANCIS (generalized anxiety disorder) F41.1 and Conversion disorder (or hysterical neurosis, conversion type) F44.9 [facility] [address] [id number] [place] [address] May, Pelvic pain R10.2 [facility] [id number] [place] [address] Apr, Gastroenteritis K52.9 [facility] [id number] [place] [address] Apr, Blood in urine R31.9 and Acu te cystitis with hematuria N30.01 [place] [address] [address] Apr, Major depressive disorder in partial rem ission F32.4 ; FRANCIS (generalized anxiety disorder) F41.1 and Conversion disorder (or hysterical neurosis, conversion type) F44.9 [place] [address] [address] Apr, [place] [address] [address] Apr, Abnormal mammogram R92.8 [place] [address] [address] Mar, [place] [address] [address] Mar, Gastroenteritis K52.9 and Seizure disord er G40.909 [place] [address] [address] Dec, [facility] [id number] [place] [address] Dec, Other headache syndrome G44. 89 [place] [address] [address] Dec, [place] [address] [address] Dec, Thoracic disc herniation M51.24 [place] [id number] [place] [address] Dec, [facility] [id number] [place] [address] Nov, Major depressive disorder in partial rem ission F32.4 and FRANCIS (generalized anxiety disorder) F41.1 [facility] [id number] [place] [address] Nov, [facility] [id number] [place] [address] Nov, Dorsalgia, unspecified M54.9 [facility] [id number] [place] [address] Oct, [facility] [address] [address] September, [facility] [id number] [place] [address] Aug, [facility] [address] [address] Aug, Major depressive disorder in partial rem ission F32.4 and FRANCIS (generalized anxiety disorder) F41.1 [facility] [id number] [place] [address] Aug, [facility] [id number] [place] [address] Jul, Abnormal mammogram R92.8 [facility] [id number] [place] [address] Jul, [facility] [address] [id number] [place] [address] Jul, [facility] [id number] [place] [address] Jul, [facility] [address] [id number] [place] [address] Jul, [facility] [id number] [place] [address] Jul, [facility] [id number] [place] [address] Jul, [facility] [address] [address] Jun, Major depressive disorder in partial rem ission F32.4 and FRANCIS (generalized anxiety disorder) F41.1 [facility] [address] [address] Jun, [facility] [address] [address] May, [facility] [address] [address] Apr, [facility] [address] [address] Mar, Major depressive disorder, recurrent epi sode, moderate F33.1 ; PTSD (post-traumatic stress disorder) F43.10 and FRANCIS (generalized anxiety disorder) F41.1 [facility] [address] [address] Mar, [facility] [address] [address] Mar, [facility] [address] [address] Mar, [facility] [address] [address] Mar, [facility] [address] [address] Jan, [facility] [address] [address] 15 Jan, 2015 [facility] [address] [address] 15 Jan, 2015 [facility] [address] [address] 14 Jan, 2015 Thoracic disc herniation 722.11 [facility] [id number] [place] [address] Dec, [facility] [id number] [place] [address] Dec, [facility] [id number] [place] [address] Dec, [facility] [id number] [place] [address] Nov, [facility] [id number] [place] [address] Nov, Generalized anxiety disorder 300.02 ; Po sttraumatic stress disorder 309.81 and Major depressive disorder, recurrent episode, moderate 296.32 [facility] [id number] [place] [address] Nov, [facility] [id number] [place] [address] Nov, [facility] [id number] [place] [address] Oct, [facility] [id number] [place] [address] Oct, [facility] [id number] [place] [address] Oct, [facility] [id number] [place] [address] September, [facility] [id number] [place] [address] September, [facility] [id number] [place] [address] Aug, [facility] [id number] [place] [address] Aug, [facility] [id number] [place] [address] Jul, [facility] [id number] [place] [address] Jul, [facility] [place] [facility] [address] [id number] [place] [address] 17 Jul, 2014 [facility] [place] [facility] [address] [id number] [place] [address] 17 Jul, 2014 [facility] [place] [facility] [address] [id number] [place] [address] 16 Jul, 2014 [facility] [place] [facility] [address] [id number] [place] [address] 16 Jul, 2014 [facility] [place] [facility] [address] [id number] [place] [address] Jul, [facility] [place] [facility] [address] [id number] [place] [address] Jul, [facility] [place] [facility] [address] [id number] [place] [address] Jul, [facility] [place] [facility] [address] [id number] [place] [address] Jul, [facility] [place] [facility] [address] [id number] [place] [address] Jun, [facility] [place] [facility] [address] [id number] [place] [address] Jun, [facility] [place] [facility] [address] [id number] [place] [address] Jun, [facility] [place] [facility] [address] [id number] [place] [address] May, [facility] [place] [facility] [address] [id number] [place] [address] Apr, [facility] [place] [facility] [address] [id number] [place] [address] Apr, [facility] [place] [facility] [address] [id number] [place] [address] Apr, [facility] [place] [facility] [address] [id number] [place] [address] Apr, [facility] [place] [facility] [address] [id number] [place] [address] Apr, [facility] [place] [facility] [address] [id number] [place] [address] Apr, [facility] [place] [facility] [address] [id number] [place] [address] Apr, [facility] [place] [facility] [address] [id number] [place] [address] Apr, [facility] [place] [facility] [address] [id number] [place] [address] Mar, [facility] [place] [facility] [address] [id number] [place] [address] Mar, [facility] [place] [facility] [address] [id number] [place] [address] Mar, [facility] [place] [facility] [address] [id number] [place] [address] Mar, [facility] [place] [facility] [address] [id number] [place] [address] Mar, [facility] [place] [facility] [address] [id number] [place] [address] Mar, [facility] [place] [facility] [address] [id number] [place] [address] Mar, [facility] [place] [facility] [address] [id number] [place] [address] Mar, [facility] [place] [facility] [address] [id number] [place] [address] Mar, [facility] [place] [facility] [address] [id number] [place] [address] Mar, [facility] [place] [facility] [address] [id number] [place] [address] 17 Mar, 2014 [facility] [place] [facility] [address] [id number] [place] [address] 14 Mar, 2014 [facility] [place] [facility] [address] [id number] [place] [address] 14 Mar, 2014 [facility] [place] [facility] [address] [id number] [place] [address] 07 Mar, 2013 [facility] [place] [facility] [address] [id number] [place] [address] 07 Mar, 2013 [facility] [place] [facility] [address] [id number] [place] [address] Mar, 2013 [facility] [place] [facility] [address] [id number] [place] [address] 06 Oct, 2013 [facility] [place] [facility] [address] [id number] [place] [address] 19 Sep, 2013 [facility] [place] [facility] [address] [id number] [place] [address] 19 Sep, 2013 [facility] [place] [facility] [address] [id number] [place] [address] 09 Sep, 2013 [facility] [place] [facility] [address] [id number] [place] [address] 09 Sep, 2013 [facility] [place] [facility] [address] [id number] [place] [address] 05 Sep, 2013 [facility] [place] [facility] [address] [id number] [place] [address] 05 Sep, 2013 [facility] [place] [facility] [address] [id number] [place] [address] 05 Sep, 2013 [facility] [place] [facility] [address] [id number] [place] [address] 05 Sep, 2013 [facility] [place] [facility] [address] [id number] [place] [address] 03 Sep, 2013 [facility] [place] [facility] [address] [id number] [place] [address] 02 Sep, 2013 [facility] [place] [facility] [address] [id number] [place] [address] 02 Sep, 2013 [facility] [place] [facility] [address] [id number] [place] [address] 02 Sep, 2013 [facility] [place] [facility] [address] [id number] [place] [address] Jan, [facility] [place] [facility] [address] [facility] [id number] [place] [address] Dec, [facility] [place] [facility] [address] [facility] [id number] [place] [address] Dec, [facility] [place] [facility] [address] [id number] [place] [address] Dec, [facility] [place] [facility] [address] [id number] [place] [address] Dec, [facility] [place] [facility] [address] [id number] [place] [address] Dec, [facility] [address] [id number] [place] [address] Dec, [facility] [address] [facility] [id number] Dec, [facility] [address] [facility] [id number] Dec, [facility] [place] [facility] [address] [id number] [place] [address] Dec, [facility] [place] [facility] [address] [id number] [place] [address] Dec, [facility] [place] [facility] [address] [id number] [place] [address] Dec, [facility] [place] [facility] [address] [id number] [place] [address] Dec, [facility] [place] [facility] [address] [id number] [place] [address] Nov, [facility] [place] [facility] [address] [facility] [id number] [place] [address] Nov, [facility] [place] [facility] [address] [id number] [place] [address] Nov, [facility] [place] [facility] [address] [id number] [place] [address] Nov, [facility] [place] [facility] [address] [id number] [place] [address] Nov, [facility] [place] [facility] [address] [id number] [facility] [address] Nov, [facility] [place] [facility] [address] [facility] [id number] [place] [address] Nov, [facility] [place] [facility] [address] [facility] [id number] [facility] [place] [address] Nov, [facility] [place] [facility] [address] [facility] [id number] [place] [address] Nov, [facility] [place] [facility] [address] [facility] [id number] [place] [address] Nov, [facility] [place] [facility] [address] [facility] [id number] [place] [address] Nov, [facility] [place] [facility] [address] [facility] [id number] [place] [address] Nov, [facility] [place] [facility] [address] [id number] [place] [address] Nov, [facility] [place] [facility] [address] [facility] [id number] [facility] [place] [address] Oct, [facility] [place] [facility] [address] [facility] [id number] [place] [address] Oct, [facility] [place] [facility] [address] [facility] [id number] [place] [address] Oct, [facility] [place] [facility] [address] [id number] [place] [address] Oct, [facility] [place] [facility] [address] [facility] [id number] [facility] [place] [address] Oct, [facility] [place] [facility] [address] [id number] [place] [address] Oct, [facility] [place] [facility] [address] [facility] [id number] [place] [address] Oct, [facility] [place] [facility] [address] [id number] [place] [address] Oct, [facility] [place] [facility] [address] [id number] [facility] [place] [address] Oct, [facility] [place] [facility] [address] [facility] [id number] [facility] [address] Oct, [facility] [place] [facility] [address] [facility] [id number] [facility] [address] Oct, [facility] [place] [facility] [address] [id number] [place] [address] Oct, [facility] [place] [facility] [address] [facility] [id number] [facility] [address] September, [facility] [place] [facility] [address] [facility] [id number] [place] [address] September, [facility] [place] [facility] [address] [id number] [place] [address] September, [facility] [place] [facility] [address] [id number] [facility] [address] September, [facility] [place] [facility] [address] [id number] [facility] [place] [address] Aug, [facility] [place] [facility] [address] [facility] [id number] [facility] [address] Aug, [facility] [place] [facility] [address] [id number] [facility] [place] [address] Aug, [facility] [place] [facility] [address] [id number] [place] [address] Aug, [facility] [place] [facility] [address] [id number] [facility] [place] [address] Aug, [facility] [place] [facility] [address] [facility] [id number] [facility] [address] Aug, [facility] [place] [facility] [address] [id number] [facility] [address] Aug, [facility] [place] [facility] [address] [id number] [facility] [place] [address] Jul, [facility] [place] [facility] [address] [id number] [facility] [place] [address] Jul, [facility] [place] [facility] [address] [id number] [place] [address] 28 Jul, 2013 [facility] [place] [facility] [address] [id number] [place] [address] Jul, [facility] [place] [facility] [address] [id number] [place] [address] Jul, [facility] [place] [facility] [address] [id number] [place] [address] Jul, [facility] [place] [facility] [address] [id number] [place] [address] 18 Jul, 2013 [facility] [place] [facility] [address] [id number] [place] [address] Jul, [facility] [place] [facility] [address] [id number] [place] [address] Jul, [facility] [place] [facility] [address] [id number] [place] [address] 18 Jul, 2013 [facility] [place] [facility] [address] [id number] [place] [address] Jul, [facility] [place] [facility] [address] [id number] [place] [address] Jul, [facility] [place] [facility] [address] [id number] [place] [address] 14 Jul, 2013 [facility] [place] [facility] [address] [id number] [place] [address] 14 Jul, 2013 [facility] [place] [facility] [address] [id number] [place] [address] Jul, [facility] [place] [facility] [address] [id number] [place] [address] Jul, [facility] [place] [facility] [address] [id number] [place] [address] Jul, [facility] [place] [facility] [address] [id number] [place] [address] Jul, [facility] [place] [facility] [address] [id number] [place] [address] 31 Jun, 2013 [facility] [place] [facility] [address] [facility] [id number] [place] [address] 31 Jun, 2013 [facility] [place] [facility] [address] [id number] [place] [address] 15 Jun, 2013 [facility] [place] [facility] [address] [id number] [place] [address] 15 Jun, 2013 [facility] [place] [facility] [address] [id number] [place] [address] 14 Jun, 2013 [facility] [place] [facility] [address] [id number] [place] [address] 14 Jun, 2013 [facility] [place] [facility] [address] [id number] [place] [address] 14 Jun, 2013 [facility] [place] [facility] [address] [id number] [place] [address] 14 Jun, 2013 [facility] [place] [facility] [address] [id number] [place] [address] 14 Jun, 2013 [facility] [place] [facility] [address] [id number] [place] [address] 14 Jun, 2013 [facility] [place] [facility] [address] [id number] [place] [address] 27 May, 2013 [facility] [place] [facility] [address] [id number] [place] [address] 27 May, 2013 [facility] [place] [facility] [address] [id number] [place] [address] 26 May, 2013 [facility] [place] [facility] [address] [id number] [place] [address] 19 May, 2013 [facility] [place] [facility] [address] [id number] [place] [address] 19 May, 2013 [facility] [place] [facility] [address] [id number] [place] [address] 16 May, 2013 [facility] [place] [facility] [address] [id number] [place] [address] 16 May, 2013 [facility] [place] [facility] [address] [id number] [place] [address] 16 May, 2013 [facility] [place] [facility] [address] [id number] [place] [address] 16 May, 2013 [facility] [place] [facility] [address] [id number] [place] [address] 13 May, 2013 [facility] [place] [facility] [address] [id number] [place] [address] 13 May, 2013 [facility] [place] [facility] [address] [id number] [place] [address] 11 May, 2013 [facility] [place] [facility] [address] [id number] [place] [address] 20 Apr, 2013 [facility] [place] [facility] [address] [id number] [place] [address] 18 Apr, 2013 [facility] [place] [facility] [address] [id number] [place] [address] 18 Apr, 2013 [facility] [place] [facility] [address] [id number] [place] [address] 13 Apr, 2013 [facility] [place] [facility] [address] [id number] [place] [address] 13 Apr, 2013 [facility] [place] [facility] [address] [id number] [place] [address] 08 Apr, 2013 [facility] [place] [facility] [address] [id number] [place] [address] 08 Apr, 2013 [facility] [place] [facility] [address] [id number] [place] [address] 07 Apr, 2013 [facility] [place] [facility] [address] [id number] [place] [address] 07 Apr, 2013 [facility] [place] [facility] [id number] [place] [address] 07 Apr, 2013 [facility] [place] [facility] [address] [id number] [place] [address] 07 Apr, 2013 [facility] [place] [facility] [address] [id number] [place] [address] Mar, [facility] [place] [facility] [address] [facility] [id number] [place] [address] Mar, [facility] [place] [facility] [address] [facility] [id number] [place] [address] Mar, [facility] [place] [facility] [address] [id number] [place] [address] Mar, [facility] [place] [facility] [address] [id number] [place] [address] Mar, [facility] [place] [facility] [address] [facility] [id number] [place] [address] Mar, [facility] [place] [facility] [address] [id number] [place] [address] Mar, [facility] [place] [facility] [address] [id number] [place] [address] Mar, [facility] [place] [facility] [address] [id number] [place] [address] 18 Mar, 2013 [facility] [place] [facility] [address] [id number] [place] [address] Mar, [facility] [place] [facility] [address] [id number] [place] [address] Mar, [facility] [place] [facility] [address] [id number] [place] [address] Mar, [facility] [place] [facility] [address] [id number] [place] [address] 30 Jan, 2012 [facility] [place] [facility] [address] [id number] [place] [address] 25 Jan, 2012 [facility] [place] [facility] [address] [id number] [place] [address] 20 Jan, 2012 [facility] [place] [facility] [address] [id number] [place] [address] 10 Jan, 2012 [facility] [place] [facility] [address] [id number] [place] [address] Dec, 2012 [facility] [place] [facility] [address] [id number] [place] [address] Dec, [facility] [place] [facility] [address] [id number] [place] [address] Dec, [facility] [place] [facility] [address] [facility] [id number] [facility] [address] Dec, [facility] [place] [facility] [address] [id number] [facility] [address] Dec, [facility] [place] [facility] [address] [facility] [id number] [facility] [address] Dec, [facility] [place] [facility] [address] [facility] [id number] [place] [address] Dec, [facility] [place] [facility] [address] [id number] [facility] [address] Dec, [facility] [place] [facility] [address] [id number] [facility] [address] Dec, [facility] [place] [facility] [address] [id number] [facility] [address] Nov, [facility] [place] [facility] [address] [facility] [id number] [facility] [place] [address] Nov, [facility] [place] [facility] [address] [id number] [facility] [address] Nov, [facility] [place] [facility] [address] [id number] [place] [address] Nov, [facility] [place] [facility] [address] [id number] [facility] [address] Nov, [facility] [place] [facility] [address] [facility] [id number] [facility] [place] [address] Nov, [facility] [place] [facility] [address] [id number] [facility] [address] Nov, [facility] [place] [facility] [address] [id number] [facility] [address] Nov, [facility] [place] [facility] [address] [id number] [place] [address] Oct, [facility] [place] [facility] [address] [id number] [place] [address] 27 Oct, 2012 [facility] [place] [facility] [address] [id number] [place] [address] Oct, [facility] [place] [facility] [address] [id number] [place] [address] Oct, [facility] [place] [facility] [address] [id number] [place] [address] Oct, [facility] [place] [facility] [address] [id number] [place] [address] Oct, [facility] [place] [facility] [address] [id number] [place] [address] Oct, [facility] [place] [facility] [address] [id number] [place] [address] Oct, [facility] [place] [facility] [address] [id number] [place] [address] 19 Oct, 2012 [facility] [place] [facility] [address] [id number] [place] [address] 18 Oct, 2012 [facility] [place] [facility] [address] [id number] [place] [address] 17 Oct, 2012 [facility] [place] [facility] [address] [id number] [place] [address] 14 Oct, 2012 [facility] [place] [facility] [address] [id number] [place] [address] 07 Oct, 2012 [facility] [place] [facility] [address] [id number] [place] [address] September, [facility] [place] [facility] [address] [id number] [place] [address] September, [facility] [place] [facility] [address] [id number] [place] [address] September, [facility] [place] [facility] [address] [id number] [place] [address] Aug, [facility] [place] [facility] [address] [id number] [place] [address] Aug, [facility] [place] [facility] [address] [facility] [id number] [place] [address] Aug, [facility] [place] [facility] [address] [facility] [id number] [facility] [address] 18 Aug, 2012 [facility] [place] [facility] [address] [id number] [place] [address] 18 Aug, 2012 [facility] [place] [facility] [address] [id number] [place] [address] 08 Aug, 2012 [facility] [place] [facility] [address] [facility] [id number] [place] [address] 05 Aug, 2012 [facility] [place] [facility] [address] [id number] [place] [address] Jul, [facility] [place] [facility] [address] [id number] [place] [address] Jul, [facility] [place] [facility] [address] [id number] [place] [address] 08 Jul, 2012 [facility] [place] [facility] [address] [id number] [place] [address] 08 Jul, 2012 [facility] [place] [facility] [address] [id number] [place] [address] 08 Jul, 2012 [facility] [place] [facility] [address] [id number] [place] [address] Jul, [facility] [place] [facility] [address] [id number] [place] [address] Jul, [facility] [place] [facility] [address] [id number] [place] [address] Jul, [facility] [place] [facility] [address] [id number] [place] [address] Jul, [facility] [place] [facility] [address] [id number] [place] [address] Jul, [facility] [place] [facility] [address] [id number] [place] [address] Jul, [facility] [place] [facility] [address] [id number] [place] [address] 06 Jul, 2012 [facility] [place] [facility] [address] [id number] [place] [address] Jul, [facility] [place] [facility] [address] [id number] [place] [address] 24 Jun, 2012 [facility] [place] [facility] [address] [id number] [place] [address] Jun, [facility] [place] [facility] [address] [id number] [place] [address] Jun, [facility] [place] [facility] [address] [id number] [place] [address] 17 Jun, 2012 [facility] [place] [facility] [address] [id number] [place] [address] 15 Jun, 2012 [facility] [place] [facility] [address] [id number] [place] [address] Jun, [facility] [place] [facility] [address] [id number] [place] [address] Jun, [facility] [place] [facility] [address] [id number] [place] [address] May, [facility] [place] [facility] [address] [id number] [place] [address] May, [facility] [place] [facility] [address] [id number] [place] [address] May, [facility] [place] [facility] [address] [id number] [place] [address] May, [facility] [place] [facility] [address] [id number] [place] [address] May, [facility] [place] [facility] [address] [id number] [place] [address] May, [facility] [place] [facility] [address] [id number] [place] [address] May, [facility] [place] [facility] [address] [id number] [place] [address] May, [facility] [place] [facility] [address] [id number] [place] [address] May, [facility] [place] [facility] [address] [id number] [place] [address] May, [facility] [place] [facility] [address] [id number] [place] [address] Apr, [facility] [place] [facility] [address] [id number] [place] [address] Apr, [facility] [place] [facility] [address] [id number] [place] [address] Apr, [facility] [place] [facility] [address] [id number] [place] [address] Apr, [facility] [place] [facility] [address] [id number] [place] [address] Apr, [facility] [place] [facility] [id number] [place] [address] Apr, [facility] [place] [facility] [address] [id number] [place] [address] Apr, [facility] [place] [facility] [address] [id number] [place] [address] Apr, [facility] [place] [facility] [address] [id number] [place] [address] Apr, [facility] [place] [facility] [address] [id number] [place] [address] Apr, [facility] [place] [facility] [address] [id number] [place] [address] Apr, [facility] [place] [facility] [address] [id number] [place] [address] Apr, [facility] [place] [facility] [address] [id number] [place] [address] Mar, [facility] [place] [facility] [address] [id number] [place] [address] Mar, [facility] [place] [facility] [address] [id number] [place] [address] Mar, 2011 [facility] [place] [facility] [address] [facility] [id number] [place] [address] Mar, 2011 [facility] [place] [facility] [address] [facility] [id number] [place] [address] Mar, 2011 [facility] [place] [facility] [address] [id number] [place] [address] Mar, 2011 [facility] [place] [facility] [address] [id number] [place] [address] Mar, 2011 [facility] [place] [facility] [address] [facility] [id number] [place] [address] Mar, 2011 [facility] [place] [facility] [address] [id number] [place] [address] Mar, 2011 [facility] [place] [facility] [address] [id number] [place] [address] Mar, 2011 [facility] [place] [facility] [address] [id number] [place] [address] Mar, 2011 [facility] [place] [facility] [address] [id number] [place] [address] Mar, [facility] [place] [facility] [address] [id number] [place] [address] Mar, [facility] [place] [facility] [address] [id number] [place] [address] Mar, [facility] [place] [facility] [address] [id number] [place] [address] Mar, [facility] [place] [facility] [address] [facility] [id number] [place] [address] Mar, [facility] [place] [facility] [address] [id number] [place] [address] 25 Jan, 2011 [facility] [place] [facility] [address] [id number] [place] [address] 24 Sep, 2011 [facility] [place] [facility] [address] [id number] [place] [address] 22 Jan, 2011 [facility] [place] [facility] [address] [id number] [facility] [address] 22 Jan, 2011 [facility] [place] [facility] [address] [id number] [place] [address] 21 Jan, 2012 [facility] [place] [facility] [address] [id number] [place] [address] 18 Jan, 2012 [facility] [place] [facility] [address] [id number] [place] [address] 14 Jan, 2012 [facility] [place] [facility] [address] [id number] [place] [address] 07 Jan, 2012 [facility] [place] [facility] [address] [id number] [place] [address] 15 Dec, 2011 [facility] [address] [id number] [place] [address] 10 Dec, 2011 [facility] [address] [id number] [place] [address] Dec, [facility] [address] [id number] [place] [address] Dec, [facility] [address] [id number] [place] [address] Dec, [facility] [address] [id number] [place] [address] Dec, [facility] [address] [id number] [place] [address] Dec, [facility] [address] [id number] [place] [address] Nov, [facility] [address] [id number] [place] [address] Oct, [facility] [address] [id number] [place] [address] Aug, [facility] [address] [id number] [place] [address] Jul, [facility] [address] [id number] [place] [address] Jul, [facility] [address] [facility] [id number] [place] [address] 16 Jul, 2011 [facility] [address] [id number] [place] [address] 14 Jul, 2011 [facility] [address] [id number] [place] [address] 07 Jul, 2011 [facility] [address] [id number] [place] [address] 02 Jul, 2011 [facility] [address] [id number] [place] [address] 21 Jul, 2011 [facility] [address] [id number] [place] [address] 15 Jul, 2011 [facility] [address] [id number] [place] [address] 13 Jul, 2011 [facility] [address] [id number] [place] [address] Jul, [facility] [address] [id number] [place] [address] 02 Jul, 2011 [facility] [address] [id number] [place] [address] 24 Jun, 2011 [facility] [address] [id number] [place] [address] 24 Jun, 2011 [facility] [address] [id number] [place] [address] Jun, [facility] [address] [id number] [place] [address] Jun, [facility] [address] [id number] [place] [address] Jun, [facility] [address] [id number] [place] [address] 05 Jun, 2011 [facility] [address] [id number] [place] [address] Jun, [facility] [address] [id number] [place] [address] 28 May, 2011 [facility] [address] [id number] [place] [address] May, [facility] [address] [id number] [place] [address] May, [facility] [address] [id number] [place] [address] 14 May, 2011 [facility] [address] [id number] [place] [address] 14 May, 2011 [facility] [address] [id number] [place] [address] May, [facility] [address] [id number] [place] [address] May, [facility] [id number] [place] [address] May, [facility] [address] [id number] [place] [address] May, [facility] [address] [id number] [place] [address] May, [facility] [id number] [place] [address] 15 Apr, 2011 [facility] [address] [id number] [place] [address] Apr, [facility] [address] [id number] [place] [address] Apr, [facility] [address] [id number] [place] [address] Apr, [facility] [id number] [place] [address] Mar, [facility] [address] [id number] [place] [address] 24 Mar, 2011 [facility] [address] [id number] [place] [address] 17 Mar, 2011 [facility] [address] [facility] [id number] [place] [address] 17 Mar, 2011 IMMUNIZATIONS No Known Immunizations SOCIAL HISTORY Never Assessed REASON FOR VISIT PLAN OF CARE VITAL SIGNS MEDICATIONS Unknown Medications RESULTS No Results PROCEDURES Procedure Date Ordered Result Body Site PSYTX PT&/FAMILY 30 MINUTES Jun 15, 2013 INSTRUCTIONS MEDICATIONS ADMINISTERED No Known Medications [...]
--- OUTSIDE RECORDS SUMMARY | 2020-01-03 18:18 | XMS REPORT ---
Author Author Pattie VIEIRA Organization [facility] Address [address] [place] [address] Care Team Providers Care Party Host/Hostess Name Role Phone REYNALDO VIEIRA Unavailable PROBLEMS Type Condition ICD9-CM Code SIQ17-MV Code Onset Dates Condition S tatus SNOMED Code Problem FRANCIS (generalized anxiety disorder) F41.1 Active 69313021 Problem Thoracic disc herniation M51.24 Activ e 753440063 Problem Major depressive disorder in partial remission F32 .4 Active 43492246 Problem Paroxysmal tachycardia I47.9 Active 53696564 Problem Slow transit constipation K59.01 Acti ve 84622705 Problem Constipation, unspecified constipation type K59.00 Active 46715735 Problem Obesity (BMI 30.0-34.9) E66.9 Active [id number] Problem Seizure disorder G40.909 Active 128 718342 Problem High blood pressure I10 Active 84686523 Problem Conversion disorder (or hysterical neurosis, conversion ty pe) F44.9 Active 78073854 Problem Mild episode of recurrent major depressive disorder F33.0 Active 336237311 Problem Restless leg syndrome G25.81 Active 07167791 Problem Other chronic pain G89.29 Active 8 4118470 Problem Mild intermittent asthma without complication J45. 20 Active [id number] ALLERGIES No Information ENCOUNTERS Encounter Location Date Diagnosis [facility] [address] [id number] [place] [address] Jul, [facility] [place] [address] [id number] [place] [address] Jul, Major depressive disorder in partial rem ission F32.4 ; FRANCIS (generalized anxiety disorder) F41.1 ; Restless leg syndrome G25.81 and High blood pressure I10 [facility] [place] [address] [id number] [place] [address] Jul, [facility] [place] [id number] [place] [address] Jul, [facility] [place] [id number] [place] [address] Jun, [facility] [place] [address] [address] May, [facility] [place] [address] [address] Apr, [facility] [place] [address] [address] Apr, [facility] [place] [address] [address] Mar, [facility] [place] [address] [address] Mar, Major depressive disorder in partial rem ission F32.4 ; FRANCIS (generalized anxiety disorder) F41.1 and Restless leg syndrome G25.81 [facility] [place] [id number] [place] [address] Mar, Obesity (BMI 30.0-34.9) E66.9 [facility] [place] [id number] [place] [address] Jan, [facility] [address] [facility] [id number] [address] [place] [address] Jan, Burn T30.0 [facility] [place] [address] [id number] [place] [address] Dec, [facility] [place] [address] [address] Nov, [facility] [place] [id number] [place] [address] Nov, [facility] [address] [facility] [id number] [place] [id number] Nov, Dental examination Z01.20 [facility] [place] [id number] [place] [address] September, [facility] [address] [id number] [place] [id number] September, Decay, teeth K02.9 and Dental examinatio n Z01.20 [facility] [address] [id number] [place] [id number] September, Dental examination Z01.20 [place] [address] [address] September, FRANCIS (generalized anxiety disorder) F41.1 ; Major depressive disorder in partial remission F32.4 and Restless leg syndrome G25.81 [place] [address] [address] Aug, [place] [address] [address] Jul, [place] [address] [address] Jul, Encounter to discuss test results Z71.[address] [address] Jul, Pelvic pain R10.2 ; Screening for breast cancer Z12.31 and Obesity (BMI 30.0-34.9) E66.9 [place] [address] [address] Jul, Mild intermittent asthma without complic ation J45.20 [place] [address] [address] Jul, Major depressive disorder in partial rem ission F32.4 and FRANCIS (generalized anxiety disorder) F41.1 [place] [address] [address] Jul, [place] [address] [address] Jun, [place] [address] [address] May, Major depressive disorder in partial rem ission F32.4 ; FRANCIS (generalized anxiety disorder) F41.1 and Restless leg syndrome G25.81 [facility] [place] [address] [address] Apr, [facility] [place] [address] [address] Mar, [facility] [address] [facility] [id number] [address] [place] [address] Jan, Pain in thoracic spine M54.6 and Other chronic pain G89.29 [facility] [place] [address] [address] 14 Jan, 2018 [facility] [place] [address] [address] 11 Jan, 2018 Mild episode of recurrent major depressi ve disorder F33.0 ; FRANCIS (generalized anxiety disorder) F41.1 and Restless leg syndrome G25.81 [facility] [place] [address] [address] Dec, [facility] [place] [address] [address] Dec, Hospital discharge follow-up Z09 [facility] [place] [address] [address] Nov, [facility] [place] [address] [address] Nov, [facility] [place] [address] [address] September, [facility] [place] [address] [address] September, [facility] [place] [address] [address] September, Major depressive disorder in partial rem ission F32.4 ; FRANCIS (generalized anxiety disorder) F41.1 and Restless leg syndrome G25.81 [facility] [place] [address] [address] September, [facility] [place] [address] [address] Jul, [facility] [place] [address] [address] Jul, Dorsalgia, unspecified M54.9 [facility] [place] [address] [address] Jul, Mild episode of recurrent major depressi ve disorder F33.0 and FRANCIS (generalized anxiety disorder) F41.1 [facility] [place] [address] [address] May, [facility] [address] [facility] [id number] [address] [place] [address] May, Dysuria R30.0 and Acute cyst itis with hematuria N30.01 [place] [address] [address] Apr, [place] [address] [address] Apr, Major depressive disorder in partial rem ission F32.4 and FRANCIS (generalized anxiety disorder) F41.1 [place] [address] [address] Mar, Paroxysmal tachycardia I47.9 [place] [address] [address] Mar, Paroxysmal tachycardia I47.9 and Pain of left lower extremity M79.605 [place] [address] [address] Mar, FRANCIS (generalized anxiety disorder) F41.1 and Major depressive disorder in partial remission F32.4 [place] [address] [address] Jan, [place] [address] [address] 14 Jan, 2017 [place] [address] [address] Jan, [facility] [address] [facility] [id number] [place] [address] Dec, Constipation, unspecified co nstipation type K59.00 [facility] [place] [address] [address] Dec, [facility] [place] [address] [address] Nov, [place] [address] [address] Nov, Major depressive disorder in partial rem ission F32.4 and FRANCIS (generalized anxiety disorder) F41.1 [facility] [address] [place] [id number] [place] [address] Oct, Abdominal pain R10.9 and Slo w transit constipation K59.01 [place] [address] [address] Aug, Major depressive disorder in partial rem ission F32.4 ; FRANCIS (generalized anxiety disorder) F41.1 ; Conversion disorder (or hysterical neurosis, conversion type) F44.9 ; Dorsalgia, unspecified M54.9 and Long-term use of high-risk medication Z79.899 [place] [address] [address] Aug, [place] [address] [address] Jul, Paroxysmal tachycardia I47.9 [place] [address] [address] Jul, Paroxysmal tachycardia I47.9 [place] [address] [address] Jun, [place] [address] [address] Jun, Major depressive disorder in partial rem ission F32.4 ; FRANCIS (generalized anxiety disorder) F41.1 and Conversion disorder (or hysterical neurosis, conversion type) F44.9 [facility] [address] [place] [id number] [place] [address] May, Pelvic pain R10.2 [facility] [address] [place] [id number] [place] [address] Apr, Gastroenteritis K52.9 [facility] [address] [place] [id number] [place] [address] Apr, Blood in urine R31.9 and Acu te cystitis with hematuria N30.01 [place] [address] [address] Apr, Major depressive disorder in partial rem ission F32.4 ; FRANCIS (generalized anxiety disorder) F41.1 and Conversion disorder (or hysterical neurosis, conversion type) F44.9 [place] [address] [address] Apr, [place] [address] [address] Apr, Abnormal mammogram R92.8 [place] [address] [address] Mar, [place] [address] [address] Mar, Gastroenteritis K52.9 and Seizure disord er G40.909 [place] [address] [address] Dec, [facility] [address] [place] [id number] [place] [address] Dec, Other headache syndrome G44. 89 [place] [address] [address] Dec, [place] [address] [address] Dec, Thoracic disc herniation M51.24 [place] [id number] [place] [address] Dec, [facility] [place] [id number] [place] [address] Nov, Major depressive disorder in partial rem ission F32.4 and FRANCIS (generalized anxiety disorder) F41.1 [facility] [place] [id number] [place] [address] Nov, [facility] [place] [id number] [place] [address] Nov, Dorsalgia, unspecified M54.9 [facility] [place] [address] [address] Oct, [facility] [place] [address] [address] September, [facility] [place] [address] [address] Aug, [facility] [place] [address] [address] Aug, Major depressive disorder in partial rem ission F32.4 and FRANCIS (generalized anxiety disorder) F41.1 [facility] [place] [id number] [place] [address] Aug, [facility] [place] [id number] [place] [address] Jul, Abnormal mammogram R92.8 [facility] [place] [id number] [place] [address] Jul, [facility] [place] [id number] [place] [address] Jul, [facility] [place] [id number] [place] [address] Jul, [facility] [place] [id number] [place] [address] Jul, [facility] [place] [id number] [place] [address] Jul, [facility] [place] [address] [address] Jul, [facility] [address] [address] Jun, Major depressive disorder in partial rem ission F32.4 and FRANCIS (generalized anxiety disorder) F41.1 [facility] [place] [address] [address] Jun, [facility] [place] [address] [address] May, [facility] [place] [address] [address] Apr, [facility] [place] [address] [address] Mar, Major depressive disorder, recurrent epi sode, moderate F33.1 ; PTSD (post-traumatic stress disorder) F43.10 and FRANCIS (generalized anxiety disorder) F41.1 [facility] [place] [address] [address] Mar, [facility] [place] [address] [address] Mar, [facility] [place] [address] [address] Mar, [facility] [place] [address] [address] Mar, [facility] [place] [address] [address] Jan, [facility] [place] [address] [address] 15 Jan, 2015 [facility] [place] [address] [address] 15 Jan, 2015 [facility] [place] [address] [address] 14 Jan, 2015 Thoracic disc herniation 722.11 [facility] [place] [id number] [place] [address] Dec, [facility] [id number] [place] [address] Dec, [facility] [id number] [place] [address] Dec, [facility] [id number] [place] [address] Nov, [facility] [id number] [place] [address] Nov, Generalized anxiety disorder 300.02 ; Po sttraumatic stress disorder 309.81 and Major depressive disorder, recurrent episode, moderate 296.32 [facility] [id number] [place] [address] Nov, [facility] [id number] [place] [address] Nov, [facility] [id number] [place] [address] Oct, [facility] [id number] [place] [address] Oct, [facility] [id number] [place] [address] Oct, [facility] [id number] [place] [address] September, [facility] [id number] [place] [address] September, [facility] [id number] [place] [address] Aug, [facility] [id number] [place] [address] Aug, [facility] [id number] [place] [address] Jul, [facility] [id number] [place] [address] Jul, [facility] [address] [id number] [place] [address] 17 Jul, 2014 [facility] [address] [id number] [place] [address] 17 Jul, 2014 [facility] [address] [id number] [place] [address] 16 Jul, 2014 [facility] [address] [id number] [place] [address] 16 Jul, 2014 [facility] [address] [id number] [place] [address] 19 Jul, 2014 [facility] [address] [id number] [place] [address] Jul, [facility] [address] [id number] [place] [address] Jul, [facility] [address] [id number] [place] [address] Jul, [facility] [address] [id number] [place] [address] Jun, [facility] [address] [id number] [place] [address] Jun, [facility] [address] [id number] [place] [address] Jun, [facility] [address] [id number] [place] [address] May, [facility] [address] [id number] [place] [address] Apr, [facility] [address] [id number] [place] [address] Apr, [facility] [address] [id number] [place] [address] Apr, [facility] [address] [id number] [place] [address] Apr, [facility] [address] [id number] [place] [address] 07 Apr, 2014 [facility] [address] [facility] [id number] [place] [address] Apr, [facility] [address] [id number] [place] [address] Apr, [facility] [address] [id number] [place] [address] Apr, [facility] [address] [id number] [place] [address] Mar, [facility] [address] [id number] [place] [address] Mar, [facility] [address] [id number] [place] [address] Mar, [facility] [address] [id number] [place] [address] Mar, [facility] [address] [id number] [place] [address] Mar, [facility] [address] [id number] [place] [address] Mar, [facility] [address] [id number] [place] [address] Mar, [facility] [address] [id number] [place] [address] Mar, [facility] [address] [id number] [place] [address] Mar, [facility] [address] [id number] [place] [address] Mar, [facility] [address] [id number] [place] [address] 17 Mar, 2014 [facility] [address] [id number] [place] [address] 14 Mar, 2014 [facility] [address] [id number] [place] [address] 14 Mar, 2014 [facility] [address] [id number] [place] [address] 07 Mar, 2013 [facility] [address] [id number] [place] [address] 07 Mar, 2013 [facility] [address] [id number] [place] [address] Mar, 2013 [facility] [address] [id number] [place] [address] 06 Oct, 2013 [facility] [address] [id number] [place] [address] 19 Sep, 2013 [facility] [address] [id number] [place] [address] 19 Sep, 2013 [facility] [address] [id number] [place] [address] 09 Sep, 2013 [facility] [address] [id number] [place] [address] 09 Sep, 2013 [facility] [address] [id number] [place] [address] 05 Sep, 2013 [facility] [address] [id number] [place] [address] 05 Sep, 2013 [facility] [address] [id number] [place] [address] 05 Sep, 2013 [facility] [address] [id number] [place] [address] 05 Sep, 2013 [facility] [address] [id number] [place] [address] 03 Sep, 2013 [facility] [address] [id number] [place] [address] 02 Sep, 2013 [facility] [address] [id number] [place] [address] Sep, 2013 [facility] [address] [id number] [place] [address] 02 Sep, 2013 [facility] [address] [id number] [place] [address] Jan, [facility] [address] [facility] [id number] [place] [address] Dec, [facility] [address] [facility] [id number] [place] [address] Dec, [facility] [address] [id number] [place] [address] Dec, [facility] [address] [id number] [place] [address] Dec, [facility] [address] [id number] [place] [address] Dec, [facility] [address] [id number] [place] [address] Dec, [address] [facility] [address] [facility] [id number] Dec, [address] [facility] [address] [facility] [id number] Dec, [facility] [address] [id number] [place] [address] Dec, [facility] [address] [id number] [place] [address] Dec, [facility] [address] [id number] [place] [address] Dec, [facility] [address] [id number] [place] [address] Dec, [facility] [address] [id number] [place] [address] Nov, [facility] [address] [facility] [id number] [place] [address] Nov, [facility] [address] [id number] [place] [address] Nov, [facility] [address] [facility] [id number] [place] [address] Nov, [facility] [address] [id number] [place] [address] Nov, [facility] [address] [facility] [id number] [place] [address] Nov, [facility] [address] [facility] [id number] [place] [address] Nov, [facility] [address] [facility] [id number] [place] [address] Nov, [facility] [address] [facility] [id number] [facility] [place] [address] Nov, [facility] [place] [facility] [address] [facility] [id number] [place] [address] Nov, [facility] [place] [facility] [address] [facility] [id number] [place] [address] Nov, [facility] [place] [facility] [address] [id number] [place] [address] Nov, [facility] [place] [facility] [address] [id number] [place] [address] Nov, [facility] [place] [facility] [address] [facility] [id number] [place] [address] Oct, [facility] [place] [facility] [address] [id number] [place] [address] Oct, [facility] [place] [facility] [address] [id number] [place] [address] Oct, [facility] [place] [facility] [address] [id number] [place] [address] Oct, [facility] [place] [facility] [address] [facility] [id number] [place] [address] Oct, [facility] [place] [facility] [address] [facility] [id number] [place] [address] Oct, [facility] [place] [facility] [address] [facility] [id number] [place] [address] Oct, [facility] [place] [facility] [address] [id number] [place] [address] Oct, [facility] [place] [facility] [address] [facility] [id number] [facility] [place] [address] Oct, [facility] [place] [facility] [address] [facility] [id number] [facility] [place] [address] Oct, [facility] [place] [facility] [address] [facility] [id number] [place] [address] Oct, [facility] [place] [facility] [address] [id number] [facility] [place] [address] Oct, [facility] [place] [facility] [address] [facility] [id number] [place] [address] September, [facility] [place] [facility] [address] [facility] [id number] [place] [address] September, [facility] [place] [facility] [address] [facility] [id number] [place] [address] September, [facility] [place] [facility] [address] [id number] [facility] [place] [address] September, [facility] [place] [facility] [address] [id number] [facility] [place] [address] Aug, [facility] [place] [facility] [address] [facility] [id number] [place] [address] Aug, [facility] [place] [facility] [address] [id number] [place] [address] Aug, [facility] [place] [facility] [address] [id number] [facility] [place] [address] Aug, [facility] [place] [facility] [address] [id number] [facility] [place] [address] Aug, [facility] [place] [facility] [address] [facility] [id number] [place] [address] Aug, [facility] [place] [facility] [address] [id number] [facility] [place] [address] Aug, [facility] [place] [facility] [address] [facility] [id number] [facility] [place] [address] Jul, [facility] [place] [facility] [address] [id number] [facility] [place] [address] Jul, [facility] [place] [facility] [address] [facility] [id number] [place] [address] 28 Jul, 2013 [facility] [place] [facility] [address] [facility] [id number] [place] [address] 28 Jul, 2013 [facility] [place] [facility] [address] [facility] [id number] [place] [address] Jul, [facility] [place] [facility] [address] [id number] [place] [address] 19 Jul, 2013 [facility] [place] [facility] [address] [id number] [place] [address] 18 Jul, 2013 [facility] [place] [facility] [address] [id number] [place] [address] 18 Jul, 2013 [facility] [place] [facility] [address] [id number] [place] [address] 18 Jul, 2013 [facility] [place] [facility] [address] [id number] [place] [address] 18 Jul, 2013 [facility] [place] [facility] [address] [id number] [place] [address] Jul, [facility] [place] [facility] [address] [id number] [place] [address] 18 Jul, 2013 [facility] [place] [facility] [address] [id number] [place] [address] 14 Jul, 2013 [facility] [place] [facility] [address] [id number] [place] [address] 14 Jul, 2013 [facility] [place] [facility] [address] [id number] [place] [address] Jul, [facility] [place] [facility] [address] [id number] [place] [address] Jul, [facility] [place] [facility] [address] [id number] [place] [address] Jul, [facility] [place] [facility] [address] [id number] [place] [address] Jul, [facility] [place] [facility] [address] [id number] [place] [address] 31 Jun, 2013 [facility] [place] [facility] [address] [facility] [id number] [place] [address] 31 Jun, 2013 [facility] [place] [facility] [address] [facility] [id number] [place] [address] 15 Jun, 2013 [facility] [place] [facility] [address] [id number] [place] [address] 15 Jun, 2013 [facility] [place] [facility] [address] [id number] [place] [address] 14 Jun, 2013 [facility] [place] [facility] [address] [facility] [id number] [place] [address] 14 Jun, 2013 [facility] [place] [facility] [address] [id number] [place] [address] 14 Jun, 2013 [facility] [place] [facility] [address] [id number] [place] [address] 14 Jun, 2013 [facility] [place] [facility] [address] [id number] [place] [address] 14 Jun, 2013 [facility] [place] [facility] [address] [id number] [place] [address] 14 Jun, 2013 [facility] [place] [facility] [address] [id number] [place] [address] 27 May, 2013 [facility] [place] [facility] [address] [id number] [place] [address] 27 May, 2013 [facility] [place] [facility] [address] [id number] [place] [address] 26 May, 2013 [facility] [place] [facility] [address] [facility] [id number] [place] [address] 19 May, 2013 [facility] [place] [facility] [address] [id number] [place] [address] 19 May, 2013 [facility] [place] [facility] [address] [id number] [place] [address] 16 May, 2013 [facility] [place] [facility] [address] [id number] [place] [address] 16 May, 2013 [facility] [place] [facility] [address] [id number] [place] [address] 16 May, 2012 [facility] [place] [facility] [address] [id number] [place] [address] 16 May, 2013 [facility] [place] [facility] [address] [id number] [place] [address] 13 May, 2013 [facility] [place] [facility] [address] [id number] [place] [address] 13 May, 2013 [facility] [place] [facility] [address] [id number] [place] [address] 11 May, 2013 [facility] [place] [facility] [address] [id number] [place] [address] 20 Apr, 2013 [facility] [place] [facility] [address] [id number] [place] [address] 18 Apr, 2013 [facility] [place] [facility] [address] [id number] [place] [address] 18 Apr, 2013 [facility] [place] [facility] [address] [id number] [place] [address] 13 Apr, 2013 [facility] [place] [facility] [address] [id number] [place] [address] 13 Apr, 2013 [facility] [place] [facility] [address] [id number] [place] [address] 08 Apr, 2013 [facility] [place] [facility] [address] [id number] [place] [address] 08 Apr, 2013 [facility] [place] [facility] [address] [id number] [place] [address] 07 Apr, 2013 [facility] [place] [facility] [address] [id number] [place] [address] 07 Apr, 2013 [facility] [place] [facility] [id number] [place] [address] 07 Apr, 2013 [facility] [place] [facility] [address] [id number] [place] [address] 07 Apr, 2013 [facility] [place] [facility] [address] [id number] [place] [address] Mar, [facility] [place] [facility] [address] [facility] [id number] [place] [address] Mar, [facility] [place] [facility] [address] [id number] [place] [address] Mar, [facility] [place] [facility] [address] [id number] [place] [address] Mar, [facility] [place] [facility] [address] [id number] [place] [address] Mar, [facility] [place] [facility] [address] [facility] [id number] [place] [address] Mar, [facility] [place] [facility] [address] [id number] [place] [address] Mar, [facility] [place] [facility] [address] [id number] [place] [address] Mar, [facility] [place] [facility] [address] [id number] [place] [address] Mar, [facility] [place] [facility] [address] [id number] [place] [address] Mar, [facility] [place] [facility] [address] [id number] [place] [address] 15 Mar, 2013 [facility] [place] [facility] [address] [id number] [place] [address] Mar, [facility] [place] [facility] [address] [id number] [place] [address] 30 Jan, 2012 [facility] [place] [facility] [address] [id number] [place] [address] 25 Jan, 2012 [facility] [place] [facility] [address] [id number] [place] [address] 20 Jan, 2012 [facility] [place] [facility] [address] [id number] [place] [address] 10 Jan, 2012 [facility] [place] [facility] [address] [id number] [place] [address] 27 Dec, 2012 [facility] [place] [facility] [address] [id number] [place] [address] Dec, [facility] [place] [facility] [address] [id number] [place] [address] Dec, [facility] [place] [facility] [address] [facility] [id number] [place] [address] Dec, [facility] [place] [facility] [address] [id number] [facility] [place] [address] Dec, [facility] [place] [facility] [address] [facility] [id number] [place] [address] Dec, [facility] [place] [facility] [address] [facility] [id number] [place] [address] Dec, [facility] [place] [facility] [address] [id number] [place] [address] Dec, [facility] [place] [facility] [address] [id number] [facility] [address] Dec, [facility] [place] [facility] [address] [id number] [facility] [place] [address] Nov, [facility] [place] [facility] [address] [facility] [id number] [facility] [place] [address] Nov, [facility] [place] [facility] [address] [id number] [facility] [place] [address] Nov, [facility] [place] [facility] [address] [id number] [facility] [place] [address] Nov, [facility] [place] [facility] [address] [id number] [facility] [place] [address] Nov, [facility] [place] [facility] [address] [facility] [id number] [place] [address] Nov, [facility] [place] [facility] [address] [id number] [facility] [place] [address] Nov, [facility] [place] [facility] [address] [facility] [id number] [facility] [place] [address] Nov, [facility] [place] [facility] [address] [id number] [facility] [place] [address] Oct, [facility] [place] [facility] [address] [id number] [facility] [place] [address] 27 Oct, 2012 [facility] [place] [facility] [address] [facility] [id number] [place] [address] Oct, [facility] [place] [facility] [address] [facility] [id number] [place] [address] Oct, [facility] [place] [facility] [address] [id number] [place] [address] Oct, [facility] [place] [facility] [address] [id number] [place] [address] Oct, [facility] [place] [facility] [address] [id number] [place] [address] Oct, [facility] [place] [facility] [address] [id number] [place] [address] Oct, [facility] [place] [facility] [address] [id number] [place] [address] 19 Oct, 2012 [facility] [place] [facility] [address] [id number] [place] [address] 18 Oct, 2012 [facility] [place] [facility] [address] [id number] [place] [address] 17 Oct, 2012 [facility] [place] [facility] [address] [id number] [place] [address] 14 Oct, 2012 [facility] [place] [facility] [address] [id number] [place] [address] 07 Oct, 2012 [facility] [place] [facility] [address] [id number] [place] [address] September, [facility] [place] [facility] [address] [facility] [id number] [place] [address] September, [facility] [place] [facility] [address] [id number] [place] [address] September, [facility] [place] [facility] [address] [id number] [place] [address] Aug, [facility] [place] [facility] [address] [id number] [place] [address] Aug, [facility] [address] [id number] [place] [address] Aug, [facility] [place] [facility] [address] [id number] [place] [address] Aug, [facility] [place] [facility] [address] [id number] [place] [address] Aug, [facility] [place] [facility] [address] [id number] [place] [address] 08 Aug, 2012 [facility] [place] [facility] [address] [facility] [id number] [place] [address] 05 Aug, 2012 [facility] [place] [facility] [address] [id number] [place] [address] Jul, [facility] [place] [facility] [address] [id number] [place] [address] Jul, [facility] [place] [facility] [address] [id number] [place] [address] Jul, [facility] [place] [facility] [address] [id number] [place] [address] Jul, [facility] [place] [facility] [address] [id number] [place] [address] Jul, [facility] [place] [facility] [address] [id number] [place] [address] Jul, [facility] [place] [facility] [address] [id number] [place] [address] Jul, [facility] [place] [facility] [address] [id number] [place] [address] Jul, [facility] [place] [facility] [address] [id number] [place] [address] Jul, [facility] [place] [facility] [address] [id number] [place] [address] Jul, [facility] [place] [facility] [address] [id number] [place] [address] Jul, [facility] [place] [facility] [address] [id number] [place] [address] 06 Jul, 2012 [facility] [place] [facility] [address] [id number] [place] [address] Jul, [facility] [place] [facility] [address] [id number] [place] [address] 24 Jun, 2012 [facility] [place] [facility] [address] [id number] [place] [address] Jun, [facility] [place] [facility] [address] [id number] [place] [address] Jun, [facility] [place] [facility] [address] [id number] [place] [address] Jun, [facility] [place] [facility] [address] [id number] [place] [address] 15 Jun, 2012 [facility] [place] [facility] [address] [id number] [place] [address] Jun, [facility] [place] [facility] [address] [id number] [place] [address] Jun, [facility] [place] [facility] [address] [id number] [place] [address] May, [facility] [place] [facility] [address] [id number] [place] [address] May, [facility] [place] [facility] [address] [id number] [place] [address] May, [facility] [place] [facility] [address] [id number] [place] [address] May, [facility] [place] [facility] [address] [id number] [place] [address] May, [facility] [place] [facility] [address] [id number] [place] [address] May, [facility] [place] [facility] [address] [id number] [place] [address] May, [facility] [place] [facility] [address] [id number] [place] [address] May, [facility] [place] [facility] [address] [id number] [place] [address] May, [facility] [place] [facility] [address] [id number] [place] [address] May, [facility] [place] [facility] [address] [id number] [place] [address] Apr, [facility] [place] [facility] [address] [id number] [place] [address] Apr, [facility] [place] [facility] [address] [id number] [place] [address] Apr, [facility] [place] [facility] [address] [id number] [place] [address] Apr, [facility] [place] [facility] [address] [id number] [place] [address] Apr, [facility] [place] [facility] [id number] [place] [address] Apr, [facility] [place] [facility] [address] [id number] [place] [address] Apr, [facility] [place] [facility] [address] [id number] [place] [address] Apr, [facility] [place] [facility] [address] [id number] [place] [address] Apr, [facility] [place] [facility] [address] [id number] [place] [address] Apr, [facility] [place] [facility] [address] [id number] [place] [address] Apr, [facility] [place] [facility] [address] [id number] [place] [address] Apr, [facility] [place] [facility] [address] [id number] [place] [address] Mar, [facility] [place] [facility] [address] [id number] [place] [address] Mar, [facility] [place] [facility] [address] [id number] [place] [address] Mar, 2011 [facility] [place] [facility] [address] [id number] [place] [address] Mar, 2011 [facility] [place] [facility] [address] [id number] [place] [address] Mar, 2011 [facility] [place] [facility] [address] [id number] [place] [address] Mar, 2011 [facility] [place] [facility] [address] [id number] [place] [address] Mar, 2011 [facility] [place] [facility] [address] [id number] [place] [address] Mar, 2011 [facility] [place] [facility] [address] [id number] [place] [address] Mar, 2011 [facility] [place] [facility] [address] [id number] [place] [address] Mar, 2011 [facility] [place] [facility] [address] [id number] [place] [address] Mar, 2011 [facility] [place] [facility] [address] [id number] [place] [address] Mar, [facility] [place] [facility] [address] [id number] [place] [address] Mar, [facility] [place] [facility] [address] [id number] [place] [address] Mar, [facility] [place] [facility] [address] [id number] [place] [address] Mar, [facility] [place] [facility] [address] [id number] [place] [address] Mar, 2011 [facility] [place] [facility] [address] [id number] [place] [address] 25 Sep, 2011 [facility] [place] [facility] [address] [id number] [place] [address] 24 Sep, 2011 [facility] [place] [facility] [address] [id number] [place] [address] 22 Sep, 2011 [facility] [address] [id number] [place] [address] 22 Jan, 2011 [facility] [address] [id number] [place] [address] 21 Jan, 2011 [facility] [address] [id number] [place] [address] 18 Jan, 2012 [facility] [address] [id number] [place] [address] 14 Jan, 2012 [facility] [address] [id number] [place] [address] 07 Jan, 2012 [facility] [address] [id number] [place] [address] 15 Dec, 2011 [facility] [address] [id number] [place] [address] 10 Dec, 2011 [facility] [address] [id number] [place] [address] Dec, [facility] [address] [id number] [place] [address] Dec, [facility] [address] [id number] [place] [address] Dec, [facility] [address] [id number] [place] [address] Dec, [facility] [address] [id number] [place] [address] Dec, [facility] [address] [id number] [place] [address] Nov, [facility] [address] [id number] [place] [address] Oct, [facility] [address] [id number] [place] [address] Aug, [facility] [address] [id number] [place] [address] Jul, [facility] [address] [id number] [place] [address] Jul, [facility] [address] [id number] [place] [address] 16 Jul, 2011 [facility] [address] [id number] [place] [address] 14 Jul, 2011 [facility] [address] [id number] [place] [address] 07 Jul, 2011 [facility] [address] [id number] [place] [address] 02 Jul, 2011 [facility] [address] [id number] [place] [address] 21 Jul, 2011 [facility] [address] [id number] [place] [address] 15 Jul, 2011 [facility] [address] [id number] [place] [address] 13 Jul, 2011 [facility] [address] [id number] [place] [address] 03 Jul, 2011 [facility] [address] [id number] [place] [address] 02 Jul, 2011 [facility] [address] [id number] [place] [address] Jun, [facility] [address] [id number] [place] [address] 24 Jun, 2011 [facility] [address] [id number] [place] [address] Jun, [facility] [address] [id number] [place] [address] Jun, [facility] [address] [id number] [place] [address] Jun, [facility] [address] [id number] [place] [address] 05 Jun, 2011 [facility] [address] [id number] [place] [address] Jun, [facility] [address] [id number] [place] [address] May, [facility] [address] [id number] [place] [address] May, [facility] [address] [id number] [place] [address] May, [facility] [address] [id number] [place] [address] 14 May, 2011 [facility] [address] [id number] [place] [address] 14 May, 2011 [facility] [address] [id number] [place] [address] May, [facility] [address] [id number] [place] [address] May, [facility] [address] [id number] [place] [address] May, [facility] [address] [id number] [place] [address] May, [facility] [address] [id number] [place] [address] May, [facility] [id number] [place] [address] 15 Apr, 2011 [facility] [address] [id number] [place] [address] Apr, [facility] [address] [id number] [place] [address] Apr, [facility] [address] [id number] [place] [address] Apr, [facility] [id number] [place] [address] Mar, [facility] [address] [id number] [place] [address] 24 Mar, 2011 [facility] [address] [id number] [place] [address] Mar, [facility] [address] [facility] [id number] [place] [address] Mar, IMMUNIZATIONS No Known Immunizations SOCIAL HISTORY Never Assessed REASON FOR VISIT PLAN OF CARE VITAL SIGNS Height 61 in 2013-07-15 Weight 177.9 lbs 2013-07-15 Temperature 98.7 degrees Fahrenheit 2013-07-15 Heart Rate 108 bpm 2013-07-15 Respiratory Rate 20 2013-07-15 Blood pressure systolic 152 mmHg 2013-07-15 Blood pressure diastolic 94 mmHg 2013-07-15 MEDICATIONS Unknown Medications RESULTS No Results PROCEDURES [...]
--- OUTSIDE RECORDS SUMMARY | 2020-01-03 18:18 | XMS REPORT ---
Author Author Pattie Moffett Doctor Organization [facility] Address Unknown Phone Unavailable Care Team Providers Care Concrete Polisher Name Role Phone Migration, Doctor Unavailable Unavailable PROBLEMS Type Condition ICD9-CM Code CQZ67-CQ Code Onset Dates Condition S tatus SNOMED Code Problem FRANCIS (generalized anxiety disorder) F41.1 Active 36949895 Problem Thoracic disc herniation M51.24 Activ e 809140229 Problem Major depressive disorder in partial remission F32 .4 Active 38686178 Problem Paroxysmal tachycardia I47.9 Active 92826291 Problem Slow transit constipation K59.01 Acti ve 89642831 Problem Constipation, unspecified constipation type K59.00 Active 87811645 Problem Obesity (BMI 30.0-34.9) E66.9 Active [id number] Problem Seizure disorder G40.909 Active 128 098877 Problem High blood pressure I10 Active 46860315 Problem Conversion disorder (or hysterical neurosis, conversion ty pe) F44.9 Active 60159822 Problem Mild episode of recurrent major depressive disorder F33.0 Active 644066590 Problem Restless leg syndrome G25.81 Active 09480841 Problem Other chronic pain G89.29 Active 8 8995479 Problem Mild intermittent asthma without complication J45. 20 Active 391605406 ALLERGIES No Information ENCOUNTERS Encounter Location Date Diagnosis [place] [address] [address] Jul, [place] [address] [address] Jul, Major depressive disorder in partial rem ission F32.4 ; FRANCIS (generalized anxiety disorder) F41.1 ; Restless leg syndrome G25.81 and High blood pressure I10 [facility] [address] [address] 17 Jul, 2019 [place] [address] [address] Jul, [facility] [address] [id number] [place] [address] Jun, [facility] [address] [address] May, [facility] [address] [place] [id number] [place] [address] Apr, [facility] [address] [address] Apr, [facility] [address] [address] Mar, [facility] [address] [address] Mar, Major depressive disorder in partial rem ission F32.4 ; FRANCIS (generalized anxiety disorder) F41.1 and Restless leg syndrome G25.81 [facility] [address] [address] Mar, Obesity (BMI 30.0-34.9) E66.9 [facility] [address] [place] [id number] [place] [address] Jan, [facility] [address] [facility] [id number] [address] [place] [address] Jan, Burn T30.0 [facility] [address] [id number] [place] [address] Dec, [facility] [address] [address] Nov, [facility] [address] [id number] [place] [address] Nov, [facility] [address] [id number] [place] [id number] Nov, Dental examination Z01.20 [facility] [address] [id number] [place] [address] September, [facility] [address] [id number] [place] [id number] September, Decay, teeth K02.9 and Dental examinatio n Z01.20 [facility] [address] [id number] [place] [id number] September, Dental examination Z01.20 [facility] [address] [place] [id number] [place] [address] September, FRANCIS (generalized anxiety disorder) F41.1 ; Major depressive disorder in partial remission F32.4 and Restless leg syndrome G25.81 [facility] [address] [address] Aug, [place] [address] [address] Jul, [place] [address] [address] Jul, Encounter to discuss test results Z71.2 [place] [address] [address] Jul, Pelvic pain R10.2 ; Screening for breast cancer Z12.31 and Obesity (BMI 30.0-34.9) E66.9 [place] [address] [address] Jul, Mild intermittent asthma without complic ation J45.20 [place] [address] [address] Jul, Major depressive disorder in partial rem ission F32.4 and FRANCIS (generalized anxiety disorder) F41.1 [facility] [address] [address] Jul, [facility] [address] [address] Jun, [place] [address] [address] May, Major depressive disorder in partial rem ission F32.4 ; FRANCIS (generalized anxiety disorder) F41.1 and Restless leg syndrome G25.81 [place] [address] [address] Apr, [facility] [address] [address] Mar, [facility] [address] [facility] [id number] [address] [place] [address] 21 Jan, 2018 Pain in thoracic spine M54.6 and Other chronic pain G89.29 [facility] [address] [address] 14 Jan, 2018 [facility] [address] [address] 11 Jan, 2018 Mild episode of recurrent major depressi ve disorder F33.0 ; FRANCIS (generalized anxiety disorder) F41.1 and Restless leg syndrome G25.81 [facility] [address] [address] Dec, [facility] [address] [address] Dec, Hospital discharge follow-up Z09 [facility] [address] [address] Nov, [facility] [address] [address] Nov, [facility] [address] [address] September, [facility] [address] [address] September, [facility] [address] [address] September, Major depressive disorder in partial rem ission F32.4 ; FRANCIS (generalized anxiety disorder) F41.1 and Restless leg syndrome G25.81 [facility] [address] [address] September, [facility] [address] [address] Jul, [place] [address] [address] Jul, Dorsalgia, unspecified M54.9 [place] [address] [address] Jul, Mild episode of recurrent major depressi ve disorder F33.0 and FRANCIS (generalized anxiety disorder) F41.1 [place] [address] [address] May, [facility] [address] [place] [id number] [address] [place] [address] May, Dysuria R30.0 and Acute cyst itis with hematuria N30.01 [place] [address] [address] Apr, [place] [address] [address] Apr, Major depressive disorder in partial rem ission F32.4 and FRANCIS (generalized anxiety disorder) F41.1 [place] [address] [address] Mar, Paroxysmal tachycardia I47.9 [place] [address] [address] Mar, Paroxysmal tachycardia I47.9 and Pain of left lower extremity M79.605 [place] [address] [address] Mar, FRANCIS (generalized anxiety disorder) F41.1 and Major depressive disorder in partial remission F32.4 [place] [address] [address] Jan, [place] [address] [address] 14 Jan, 2017 [place] [address] [address] Jan, [facility] [address] [place] [id number] [place] [address] Dec, Constipation, unspecified co nstipation type K59.00 [place] [address] [address] Dec, [place] [address] [address] Nov, [place] [address] [address] Nov, Major depressive disorder in partial rem ission F32.4 and FRANCIS (generalized anxiety disorder) F41.1 [facility] [address] [place] [id number] [place] [address] Oct, Abdominal pain R10.9 and Slo w transit constipation K59.01 [place] [address] [address] Aug, Major depressive disorder in partial rem ission F32.4 ; FRANCIS (generalized anxiety disorder) F41.1 ; Conversion disorder (or hysterical neurosis, conversion type) F44.9 ; Dorsalgia, unspecified M54.9 and Long-term use of high-risk medication Z79.899 [place] [address] [address] Aug, [place] [address] [address] Jul, Paroxysmal tachycardia I47.9 [place] [address] [address] Jul, Paroxysmal tachycardia I47.9 [place] [address] [address] Jun, [place] [address] [address] Jun, Major depressive disorder in partial rem ission F32.4 ; FRANCIS (generalized anxiety disorder) F41.1 and Conversion disorder (or hysterical neurosis, conversion type) F44.9 [facility] [address] [place] [address] May, Pelvic pain R10.2 [facility] [address] [address] Apr, Gastroenteritis K52.9 [facility] [address] [address] Apr, Blood in urine R31.9 [address] cystitis with hematuria N30.01 [place] [address] [address] Apr, Major depressive disorder in partial rem ission F32.4 ; FRANCIS (generalized anxiety disorder) F41.1 and Conversion disorder (or hysterical neurosis, conversion type) F44.9 [place] [address] [address] Apr, [place] [address] [address] Apr, Abnormal mammogram R92.8 [place] [address] [address] Mar, [place] [address] [address] Mar, Gastroenteritis K52.9 and Seizure disord er G40.909 [place] [address] [address] Dec, [facility] [address] [place] [id number] [place] [address] Dec, Other headache syndrome G44. 89 [place] [address] [address] Dec, [place] [address] [address] Dec, Thoracic disc herniation M51.24 [place] [address] [address] Dec, [facility] [address] [id number] [place] [address] Nov, Major depressive disorder in partial rem ission F32.4 and FRANCIS (generalized anxiety disorder) F41.1 [facility] [address] [place] [id number] [place] [address] Nov, [facility] [address] [place] [id number] [place] [address] Nov, Dorsalgia, unspecified M54.9 [facility] [address] [place] [address] [id number] [place] [address] Oct, [facility] [address] [address] September, [facility] [address] [place] [id number] [place] [address] Aug, [facility] [address] [address] Aug, Major depressive disorder in partial rem ission F32.4 and FRANCIS (generalized anxiety disorder) F41.1 [facility] [address] [place] [id number] [place] [address] Aug, [facility] [address] [place] [id number] [place] [address] Jul, Abnormal mammogram R92.8 [facility] [address] [place] [id number] [place] [address] Jul, [facility] [address] [place] [id number] [place] [address] Jul, [facility] [address] [id number] [place] [address] Jul, [facility] [address] [place] [id number] [place] [address] Jul, [facility] [address] [place] [id number] [place] [address] Jul, [facility] [address] [place] [id number] [place] [address] Jul, [facility] [address] [address] Jun, Major depressive disorder in partial rem ission F32.4 and FRANCIS (generalized anxiety disorder) F41.1 [facility] [address] [address] Jun, [facility] [address] [address] May, [facility] [address] [address] Apr, [facility] [address] [address] Mar, Major depressive disorder, recurrent epi sode, moderate F33.1 ; PTSD (post-traumatic stress disorder) F43.10 and FRANCIS (generalized anxiety disorder) F41.1 [facility] [address] [address] Mar, [facility] [address] [address] Mar, [facility] [address] [address] Mar, [facility] [address] [address] Mar, [facility] [address] [address] 23 Jan, 2015 [facility] [address] [address] 15 Jan, 2015 [facility] [address] [address] 15 Jan, 2015 [facility] [address] [address] 14 Jan, 2015 Thoracic disc herniation 722.11 [facility] [address] [address] Dec, [facility] [address] [place] [id number] [place] [address] Dec, [facility] [address] [place] [address] [id number] [place] [address] Dec, [facility] [address] [place] [address] [id number] [place] [address] Nov, [facility] [address] [place] [id number] [place] [address] Nov, Generalized anxiety disorder 300.02 ; Po sttraumatic stress disorder 309.81 and Major depressive disorder, recurrent episode, moderate 296.32 [facility] [address] [place] [address] [id number] [place] [address] Nov, [facility] [address] [place] [address] [id number] [place] [address] Nov, [facility] [address] [place] [id number] [place] [address] Oct, [facility] [address] [place] [address] [id number] [place] [address] Oct, [facility] [address] [place] [address] [id number] [place] [address] Oct, [facility] [address] [place] [id number] [place] [address] September, [facility] [address] [place] [id number] [place] [address] September, [facility] [address] [place] [address] [id number] [place] [address] Aug, [facility] [address] [place] [address] [id number] [place] [address] Aug, [facility] [address] [place] [id number] [place] [address] Jul, [facility] [address] [place] [address] [id number] [place] [address] Jul, [facility] [address] [place] [id number] [place] [address] 17 Jul, 2014 [facility] [address] [id number] [place] [address] 17 Jul, 2014 [facility] [address] [id number] [place] [address] 16 Jul, 2014 [facility] [address] [id number] [place] [address] 16 Jul, 2014 [facility] [address] [id number] [place] [address] Jul, [facility] [address] [facility] [id number] [place] [address] Jul, [facility] [address] [id number] [place] [address] Jul, [facility] [address] [id number] [place] [address] Jul, [facility] [address] [id number] [place] [address] Jun, [facility] [address] [id number] [place] [address] Jun, [facility] [address] [id number] [place] [address] Jun, [facility] [address] [id number] [place] [address] May, [facility] [address] [id number] [place] [address] Apr, [facility] [address] [id number] [place] [address] Apr, [facility] [address] [id number] [place] [address] Apr, [facility] [address] [id number] [place] [address] Apr, [facility] [address] [id number] [place] [address] Apr, [facility] [address] [id number] [place] [address] 07 Apr, 2013 [facility] [address] [facility] [id number] [place] [address] Apr, [facility] [address] [id number] [place] [address] Apr, [facility] [address] [id number] [place] [address] Mar, [facility] [address] [id number] [place] [address] 24 Mar, 2014 [facility] [address] [id number] [place] [address] 24 Mar, 2014 [facility] [address] [id number] [place] [address] Mar, [facility] [address] [id number] [place] [address] Mar, [facility] [address] [id number] [place] [address] Mar, [facility] [address] [id number] [place] [address] 24 Mar, 2014 [facility] [address] [id number] [place] [address] Mar, [facility] [address] [id number] [place] [address] Mar, [facility] [address] [id number] [place] [address] Mar, [facility] [address] [id number] [place] [address] 17 Mar, 2014 [facility] [address] [id number] [place] [address] 14 Mar, 2014 [facility] [address] [id number] [place] [address] 14 Mar, 2014 [facility] [address] [id number] [place] [address] Mar, 2013 [facility] [address] [id number] [place] [address] 07 Mar, 2013 [facility] [address] [id number] [place] [address] Mar, 2013 [facility] [address] [id number] [place] [address] Oct, 2013 [facility] [address] [id number] [place] [address] 19 Sep, 2013 [facility] [address] [id number] [place] [address] 19 Sep, 2013 [facility] [address] [id number] [place] [address] 09 Sep, 2013 [facility] [address] [id number] [place] [address] 09 Sep, 2013 [facility] [address] [id number] [place] [address] 05 Sep, 2013 [facility] [address] [id number] [place] [address] 05 Sep, 2013 [facility] [address] [id number] [place] [address] 05 Sep, 2013 [facility] [address] [id number] [place] [address] 05 Sep, 2013 [facility] [address] [id number] [place] [address] 03 Sep, 2013 [facility] [address] [id number] [place] [address] 02 Sep, 2013 [facility] [address] [id number] [place] [address] 02 Sep, 2013 [facility] [address] [id number] [place] [address] 02 Sep, 2013 [facility] [address] [id number] [place] [address] 02 Sep, 2013 [facility] [address] [id number] [place] [address] Dec, [facility] [address] [facility] [id number] [place] [address] Dec, [facility] [address] [id number] [place] [address] Dec, [facility] [address] [id number] [place] [address] Dec, [facility] [address] [id number] [place] [address] Dec, [facility] [address] [id number] [place] [address] Dec, [facility] [address] [facility] [id number] Dec, [facility] [address] [facility] [id number] Dec, [facility] [address] [id number] [place] [address] Dec, [facility] [address] [id number] [place] [address] Dec, [facility] [address] [id number] [place] [address] Dec, [facility] [address] [id number] [place] [address] Dec, [facility] [address] [id number] [place] [address] Nov, [facility] [place] [facility] [address] [id number] [place] [address] Nov, [facility] [place] [facility] [address] [id number] [place] [address] Nov, [facility] [place] [facility] [address] [id number] [place] [address] Nov, [facility] [place] [facility] [address] [id number] [place] [address] Nov, [facility] [place] [facility] [address] [id number] [place] [address] Nov, [facility] [place] [facility] [address] [facility] [id number] [place] [address] Nov, [facility] [place] [facility] [address] [facility] [id number] [place] [address] Nov, [facility] [place] [facility] [address] [id number] [place] [address] Nov, [facility] [place] [facility] [address] [facility] [id number] [place] [address] Nov, [facility] [place] [facility] [address] [facility] [id number] [place] [address] Nov, [facility] [place] [facility] [address] [facility] [id number] [place] [address] Nov, [facility] [place] [facility] [address] [id number] [place] [address] Nov, [facility] [place] [facility] [address] [id number] [place] [address] Oct, [facility] [place] [facility] [address] [facility] [id number] [place] [address] Oct, [facility] [place] [facility] [address] [id number] [place] [address] Oct, [facility] [place] [facility] [address] [id number] [place] [address] Oct, [facility] [place] [facility] [address] [id number] [place] [address] Oct, [facility] [place] [facility] [address] [facility] [id number] [place] [address] Oct, [facility] [place] [facility] [address] [facility] [id number] [place] [address] Oct, [facility] [place] [facility] [address] [facility] [id number] [place] [address] Oct, [facility] [place] [facility] [address] [id number] [place] [address] Oct, [facility] [place] [facility] [address] [facility] [id number] [place] [address] Oct, [facility] [place] [facility] [address] [id number] [place] [address] Oct, [facility] [place] [facility] [address] [facility] [id number] [place] [address] Oct, [facility] [place] [facility] [address] [id number] [place] [address] September, [facility] [place] [facility] [address] [facility] [id number] [place] [address] September, [facility] [place] [facility] [address] [id number] [place] [address] September, [facility] [place] [facility] [address] [id number] [place] [address] September, [facility] [place] [facility] [address] [id number] [place] [address] Aug, [facility] [place] [facility] [address] [id number] [place] [address] Aug, [facility] [address] [facility] [id number] [place] [address] Aug, [facility] [address] [id number] [place] [address] Aug, [facility] [address] [id number] [place] [address] Aug, [facility] [address] [id number] [place] [address] Aug, [facility] [address] [facility] [id number] [place] [address] Aug, [facility] [address] [id number] [place] [address] Jul, [facility] [address] [id number] [place] [address] Jul, [facility] [address] [id number] [place] [address] Jul, [facility] [address] [facility] [id number] [place] [address] Jul, [facility] [address] [id number] [place] [address] Jul, [facility] [address] [id number] [place] [address] Jul, [facility] [address] [id number] [place] [address] Jul, [facility] [address] [facility] [id number] [place] [address] Jul, [facility] [address] [id number] [place] [address] Jul, [facility] [address] [id number] [place] [address] Jul, [facility] [address] [id number] [place] [address] Jul, [facility] [address] [id number] [place] [address] Jul, [facility] [address] [id number] [place] [address] Jul, [facility] [address] [id number] [place] [address] 14 Jul, 2013 [facility] [address] [id number] [place] [address] Jul, [facility] [address] [id number] [place] [address] Jul, [facility] [address] [id number] [place] [address] Jul, [facility] [address] [id number] [place] [address] Jul, [facility] [address] [id number] [place] [address] Jun, [facility] [address] [id number] [place] [address] 31 Jun, 2013 [facility] [address] [id number] [place] [address] 15 Jun, 2013 [facility] [address] [id number] [place] [address] 15 Jun, 2013 [facility] [address] [id number] [place] [address] 14 Jun, 2013 [facility] [address] [id number] [place] [address] 14 Jun, 2013 [facility] [address] [id number] [place] [address] 14 Jun, 2013 [facility] [address] [id number] [place] [address] 14 Jun, 2013 [facility] [address] [id number] [place] [address] 14 Jun, 2013 [facility] [address] [id number] [place] [address] 14 Jun, 2013 [facility] [address] [id number] [place] [address] 27 May, 2013 [facility] [address] [id number] [place] [address] 27 May, 2013 [facility] [address] [id number] [place] [address] 26 May, 2013 [facility] [address] [id number] [place] [address] 19 May, 2013 [facility] [address] [id number] [place] [address] 19 May, 2013 [facility] [address] [id number] [place] [address] 16 May, 2013 [facility] [address] [id number] [place] [address] 16 May, 2013 [facility] [address] [id number] [place] [address] 16 May, 2013 [facility] [address] [id number] [place] [address] 16 May, 2013 [facility] [address] [id number] [place] [address] 13 May, 2013 [facility] [address] [id number] [place] [address] 13 May, 2013 [facility] [address] [id number] [place] [address] 11 May, 2013 [facility] [address] [id number] [place] [address] 20 Apr, 2013 [facility] [address] [id number] [place] [address] 18 Apr, 2013 [facility] [address] [id number] [place] [address] 18 Apr, 2013 [facility] [id number] [place] [address] Apr, [facility] [address] [id number] [place] [address] Apr, [facility] [address] [id number] [place] [address] 08 Apr, 2013 [facility] [address] [id number] [place] [address] 08 Apr, 2013 [facility] [address] [id number] [place] [address] 07 Apr, 2013 [facility] [address] [id number] [place] [address] 07 Apr, 2013 [facility] [address] [id number] [place] [address] 07 Apr, 2013 [facility] [address] [id number] [place] [address] 07 Apr, 2013 [facility] [address] [id number] [place] [address] Mar, [facility] [address] [id number] [place] [address] Mar, [facility] [address] [facility] [id number] [place] [address] Mar, [facility] [address] [facility] [id number] [place] [address] Mar, [facility] [address] [id number] [place] [address] Mar, [facility] [address] [id number] [place] [address] Mar, [facility] [address] [facility] [id number] [place] [address] Mar, [facility] [address] [id number] [place] [address] Mar, [facility] [address] [id number] [place] [address] Mar, [facility] [address] [id number] [place] [address] Mar, [facility] [address] [id number] [place] [address] 15 Mar, 2013 [facility] [address] [id number] [place] [address] Mar, [facility] [address] [id number] [place] [address] 30 Jan, 2013 [facility] [address] [id number] [place] [address] 25 Jan, 2013 [facility] [address] [id number] [place] [address] 20 Jan, 2012 [facility] [address] [id number] [place] [address] 10 Jan, 2013 [facility] [address] [id number] [place] [address] Dec, [facility] [address] [id number] [place] [address] Dec, [facility] [address] [id number] [place] [address] Dec, [facility] [address] [id number] [place] [address] Dec, [facility] [address] [facility] [id number] [place] [address] Dec, [facility] [address] [id number] [place] [address] Dec, [facility] [address] [facility] [id number] [place] [address] Dec, [facility] [address] [id number] [place] [address] Dec, [facility] [address] [id number] [place] [address] Dec, [facility] [address] [id number] [place] [address] Nov, [facility] [address] [id number] [place] [address] Nov, [facility] [address] [id number] [place] [address] Nov, [facility] [address] [id number] [place] [address] Nov, [facility] [address] [id number] [place] [address] Nov, [facility] [address] [id number] [place] [address] Nov, [facility] [address] [facility] [id number] [place] [address] Nov, [facility] [address] [id number] [place] [address] Nov, [facility] [address] [id number] [place] [address] Oct, [facility] [address] [id number] [place] [address] Oct, [facility] [address] [id number] [place] [address] Oct, [facility] [address] [id number] [place] [address] Oct, [facility] [address] [id number] [place] [address] Oct, [facility] [address] [id number] [place] [address] Oct, [facility] [address] [id number] [place] [address] Oct, [facility] [address] [id number] [place] [address] Oct, [facility] [address] [id number] [place] [address] Oct, [facility] [address] [id number] [place] [address] 18 Oct, 2012 [facility] [address] [id number] [place] [address] 17 Oct, 2012 [facility] [address] [id number] [place] [address] 14 Oct, 2012 [facility] [address] [id number] [place] [address] 07 Oct, 2012 [facility] [address] [id number] [place] [address] 30 Sep, 2012 [facility] [address] [id number] [place] [address] September, [facility] [address] [id number] [place] [address] September, [facility] [address] [id number] [place] [address] Aug, [facility] [address] [id number] [place] [address] Aug, [facility] [address] [id number] [place] [address] 18 Aug, 2012 [facility] [address] [id number] [place] [address] 18 Aug, 2012 [facility] [address] [id number] [place] [address] 18 Aug, 2012 [facility] [address] [id number] [place] [address] 08 Aug, 2012 [facility] [address] [id number] [place] [address] 05 Aug, 2012 [facility] [address] [id number] [place] [address] Jul, [facility] [address] [id number] [place] [address] Jul, [facility] [address] [id number] [place] [address] 08 Jul, 2012 [facility] [address] [id number] [place] [address] 08 Jul, 2012 [facility] [address] [id number] [place] [address] Jul, [facility] [address] [id number] [place] [address] Jul, [facility] [address] [id number] [place] [address] Jul, [facility] [address] [id number] [place] [address] Jul, [facility] [address] [id number] [place] [address] Jul, [facility] [address] [id number] [place] [address] Jul, [facility] [address] [id number] [place] [address] Jul, [facility] [address] [id number] [place] [address] 06 Jul, 2012 [facility] [address] [id number] [place] [address] Jul, [facility] [address] [id number] [place] [address] Jun, [facility] [address] [id number] [place] [address] Jun, [facility] [address] [id number] [place] [address] Jun, [facility] [address] [id number] [place] [address] Jun, [facility] [address] [id number] [place] [address] 15 Jun, 2012 [facility] [address] [id number] [place] [address] Jun, [facility] [address] [id number] [place] [address] Jun, [facility] [address] [id number] [place] [address] May, [facility] [address] [id number] [place] [address] May, [facility] [address] [id number] [place] [address] May, [facility] [address] [id number] [place] [address] May, [facility] [address] [id number] [place] [address] May, [facility] [address] [id number] [place] [address] May, [facility] [address] [id number] [place] [address] May, [facility] [address] [id number] [place] [address] May, [facility] [address] [id number] [place] [address] May, [facility] [address] [id number] [place] [address] May, [facility] [address] [id number] [place] [address] Apr, [facility] [address] [id number] [place] [address] Apr, [facility] [address] [id number] [place] [address] Apr, [facility] [address] [id number] [place] [address] Apr, [facility] [address] [id number] [place] [address] Apr, [facility] [address] [id number] [place] [address] Apr, [facility] [address] [id number] [place] [address] Apr, [facility] [address] [id number] [place] [address] Apr, [facility] [address] [id number] [place] [address] Apr, [facility] [address] [id number] [place] [address] Apr, [facility] [address] [id number] [place] [address] Apr, [facility] [address] [id number] [place] [address] Apr, [facility] [address] [id number] [place] [address] Mar, [facility] [address] [id number] [place] [address] Mar, [facility] [address] [id number] [place] [address] Mar, [facility] [address] [id number] [place] [address] 30 Mar, 2011 [facility] [address] [id number] [place] [address] Mar, 2011 [facility] [address] [id number] [place] [address] Mar, 2011 [facility] [address] [id number] [place] [address] Mar, 2011 [facility] [address] [id number] [place] [address] Mar, 2011 [facility] [address] [id number] [place] [address] Mar, [facility] [address] [id number] [place] [address] Mar, [facility] [address] [id number] [place] [address] Mar, [facility] [address] [id number] [place] [address] Mar, [facility] [address] [id number] [place] [address] Mar, [facility] [address] [id number] [place] [address] Mar, [facility] [address] [id number] [place] [address] Mar, [facility] [address] [id number] [place] [address] Mar, [facility] [address] [id number] [place] [address] 25 Jan, 2011 [facility] [address] [id number] [place] [address] 24 Sep, 2011 [facility] [address] [id number] [place] [address] 22 Jan, 2011 [facility] [address] [id number] [place] [address] 22 Jan, 2011 [facility] [address] [id number] [place] [address] 21 Jan, 2012 [facility] [address] [id number] [place] [address] 18 Jan, 2012 [facility] [address] [id number] [place] [address] 14 Jan, 2012 [facility] [address] [id number] [place] [address] 07 Jan, 2012 [facility] [address] [id number] [place] [address] 15 Dec, 2011 [facility] [address] [id number] [place] [address] Dec, [facility] [address] [id number] [place] [address] Dec, [facility] [address] [id number] [place] [address] Dec, [facility] [address] [id number] [place] [address] Dec, [facility] [address] [id number] [place] [address] Dec, [facility] [address] [id number] [place] [address] Dec, [facility] [address] [id number] [place] [address] Nov, [facility] [address] [id number] [place] [address] Oct, [facility] [address] [id number] [place] [address] Aug, [facility] [address] [id number] [place] [address] Jul, [facility] [place] [facility] [address] [id number] [place] [address] Jul, [facility] [place] [facility] [address] [id number] [place] [address] 16 Jul, 2011 [facility] [place] [facility] [address] [facility] [id number] [place] [address] 14 Jul, 2011 [facility] [place] [facility] [address] [id number] [place] [address] 07 Jul, 2011 [facility] [place] [facility] [address] [id number] [place] [address] 02 Jul, 2011 [facility] [place] [facility] [address] [id number] [place] [address] Jul, [facility] [place] [facility] [address] [facility] [id number] [place] [address] 15 Jul, 2011 [facility] [place] [facility] [address] [id number] [place] [address] 13 Jul, 2011 [facility] [place] [facility] [address] [id number] [place] [address] Jul, [facility] [place] [facility] [address] [id number] [place] [address] Jul, [facility] [place] [facility] [address] [id number] [place] [address] Jun, [facility] [place] [facility] [address] [id number] [place] [address] Jun, [facility] [place] [facility] [address] [id number] [place] [address] Jun, [facility] [place] [facility] [address] [id number] [place] [address] Jun, [facility] [place] [facility] [address] [id number] [place] [address] Jun, [facility] [place] [facility] [address] [id number] [place] [address] Jun, [facility] [place] [facility] [address] [id number] [place] [address] Jun, [facility] [place] [facility] [address] [id number] [place] [address] May, [facility] [place] [facility] [address] [id number] [place] [address] May, [facility] [place] [facility] [address] [id number] [place] [address] May, [facility] [place] [facility] [address] [id number] [place] [address] 14 May, 2011 [facility] [place] [facility] [address] [id number] [place] [address] 14 May, 2011 [facility] [place] [facility] [address] [id number] [place] [address] 12 May, 2011 [facility] [place] [facility] [address] [id number] [place] [address] May, [facility] [place] [facility] [address] [id number] [place] [address] May, [facility] [place] [facility] [id number] [place] [address] May, [facility] [place] [facility] [address] [id number] [place] [address] May, [facility] [place] [facility] [address] [id number] [place] [address] Apr, [facility] [place] [facility] [address] [id number] [place] [address] Apr, [facility] [place] [facility] [address] [id number] [place] [address] Apr, [facility] [place] [facility] [address] [id number] [place] [address] Apr, [facility] [place] [facility] [address] [id number] [place] [address] Mar, [facility] [place] [facility] [id number] [place] [address] 24 Mar, 2011 [facility] [place] [facility] [address] [id number] [place] [address] Mar, [facility] [place] [facility] [id number] [place] [address] Mar, IMMUNIZATIONS No Known Immunizations SOCIAL HISTORY Never Assessed REASON FOR VISIT PLAN OF CARE VITAL SIGNS Height 61 in 2013-07-01 Weight 179.5 lbs 2013-07-01 Temperature 98.6 degrees Fahrenheit 2013-07-01 Heart Rate 114 bpm 2013-07-01 Respiratory Rate 24 2013-07-01 Blood pressure systolic 132 mmHg 2013-07-01 Blood pressure diastolic 100 mmHg 2013-07-01 MEDICATIONS Unknown Medications RESULTS No Results PROCEDURES [...]
--- OUTSIDE RECORDS SUMMARY | 2020-01-03 18:19 | XMS REPORT ---
Author Author Pattie YUNG Organization [facility] Address [address] [place] [address] Care Team Providers Care Hot Dip Plater Name Role Phone DILSHADRAFAELARASH Unavailable PROBLEMS Type Condition ICD9-CM Code DUA76-[id number] Code Onset Dates Condition S tatus SNOMED Code Problem FRANCIS (generalized anxiety disorder) F41.1 Active 62508052 Problem Thoracic disc herniation M51.24 Activ e 819854323 Problem Major depressive disorder in partial remission F32 .4 Active 51710218 Problem Paroxysmal tachycardia I47.9 Active 95511640 Problem Slow transit constipation K59.01 Acti ve 98068506 Problem Constipation, unspecified constipation type K59.00 Active 33889966 Problem Obesity (BMI 30.0-34.9) E66.9 Active 069168702565914 Problem Seizure disorder G40.909 Active 128 716029 Problem High blood pressure I10 Active 77958536 Problem Conversion disorder (or hysterical neurosis, conversion ty pe) F44.9 Active 46783697 Problem Mild episode of recurrent major depressive disorder F33.0 Active 755597939 Problem Restless leg syndrome G25.81 Active 62668068 Problem Other chronic pain G89.29 Active 8 8943792 Problem Mild intermittent asthma without complication J45. 20 Active [id number] ALLERGIES No Information ENCOUNTERS Encounter Location Date Diagnosis [facility] [address] [id number] [place] [address] Jul, [facility] [id number] [place] [address] Jul, Major depressive disorder in partial rem ission F32.4 ; FRANCIS (generalized anxiety disorder) F41.1 ; Restless leg syndrome G25.81 and High blood pressure I10 [facility] [address] [id number] [place] [address] 17 Jul, 2019 [facility] [id number] [place] [address] Jul, [facility] [id number] [place] [address] Jun, [facility] [address] [address] May, [facility] [address] [address] Apr, [facility] [address] [address] Apr, [facility] [address] [address] Mar, [facility] [address] [address] Mar, Major depressive disorder in partial rem ission F32.4 ; FRANCIS (generalized anxiety disorder) F41.1 and Restless leg syndrome G25.81 [facility] [id number] [place] [address] Mar, Obesity (BMI 30.0-34.9) E66.9 [facility] [id number] [place] [address] Jan, [facility] [address] [facility] [id number] [address] [place] [address] Jan, Burn T30.0 [facility] [address] [id number] [place] [address] Dec, [facility] [id number] [place] [address] Nov, [facility] [id number] [place] [address] Nov, [facility] [address] [id number] [place] [id number] Nov, Dental examination Z01.20 [facility] [id number] [place] [address] September, [facility] [address] [id number] [place] [id number] September, Decay, teeth K02.9 and Dental examinatio n Z01.20 [facility] [address] [facility] [place] [id number] September, Dental examination Z01.20 [place] [address] [address] September, FRANCIS (generalized anxiety disorder) F41.1 ; Major depressive disorder in partial remission F32.4 and Restless leg syndrome G25.81 [place] [address] [address] Aug, [place] [address] [address] Jul, [place] [address] [address] Jul, Encounter to discuss test results Z71.2 [place] [address] [address] Jul, Pelvic pain R10.2 ; Screening for breast cancer Z12.31 and Obesity (BMI 30.0-34.9) E66.9 [place] [address] [address] Jul, Mild intermittent asthma without complic ation J45.20 [place] [address] [address] Jul, Major depressive disorder in partial rem ission F32.4 and FRANCIS (generalized anxiety disorder) F41.1 [place] [address] [address] Jul, [place] [address] [address] Jun, [place] [address] [address] May, Major depressive disorder in partial rem ission F32.4 ; FRANCIS (generalized anxiety disorder) F41.1 and Restless leg syndrome G25.81 [facility] [address] [address] Apr, [facility] [address] [address] Mar, [facility] [address] [facility] [id number] [address] [place] [address] Jan, Pain in thoracic spine M54.6 and Other chronic pain G89.29 [facility] [address] [address] 14 Jan, 2018 [facility] [address] [address] 11 Jan, 2018 Mild episode of recurrent major depressi ve disorder F33.0 ; FRANCIS (generalized anxiety disorder) F41.1 and Restless leg syndrome G25.81 [facility] [address] [address] Dec, [facility] [address] [address] Dec, Hospital discharge follow-up Z09 [facility] [address] [address] Nov, [facility] [address] [address] Nov, [facility] [address] [address] September, [facility] [address] [address] September, [facility] [address] [address] September, Major depressive disorder in partial rem ission F32.4 ; FRANCIS (generalized anxiety disorder) F41.1 and Restless leg syndrome G25.81 [facility] [address] [address] September, [facility] [address] [address] Jul, [facility] [address] [address] Jul, Dorsalgia, unspecified M54.9 [facility] [address] [address] Jul, Mild episode of recurrent major depressi ve disorder F33.0 and FRANCIS (generalized anxiety disorder) F41.1 [facility] [address] [address] May, [facility] [address] [facility] [id number] [address] [place] [address] May, Dysuria R30.0 and Acute cyst itis with hematuria N30.01 [place] [address] [address] Apr, [facility] [address] [address] Apr, Major depressive disorder in partial rem ission F32.4 and FRANCIS (generalized anxiety disorder) F41.1 [place] [address] [address] Mar, Paroxysmal tachycardia I47.9 [place] [address] [address] Mar, Paroxysmal tachycardia I47.9 and Pain of left lower extremity M79.605 [place] [address] [address] Mar, FRANCIS (generalized anxiety disorder) F41.1 and Major depressive disorder in partial remission F32.4 [place] [address] [address] Jan, [place] [address] [address] 14 Jan, 2017 [place] [address] [address] Jan, [facility] [id number] [place] [address] Dec, Constipation, unspecified co nstipation type K59.00 [facility] [address] [address] Dec, [place] [address] [address] Nov, [place] [address] [address] Nov, Major depressive disorder in partial rem ission F32.4 and FRANCIS (generalized anxiety disorder) F41.1 [facility] [id number] [place] [address] Oct, Abdominal pain R10.9 and Slo w transit constipation K59.01 [place] [address] [address] Aug, Major depressive disorder in partial rem ission F32.4 ; FRANCIS (generalized anxiety disorder) F41.1 ; Conversion disorder (or hysterical neurosis, conversion type) F44.9 ; Dorsalgia, unspecified M54.9 and Long-term use of high-risk medication Z79.899 [place] [address] [address] Aug, [place] [address] [address] Jul, Paroxysmal tachycardia I47.9 [place] [address] [address] Jul, Paroxysmal tachycardia I47.9 [place] [address] [address] Jun, [place] [address] [address] Jun, Major depressive disorder in partial rem ission F32.4 ; FRANCIS (generalized anxiety disorder) F41.1 and Conversion disorder (or hysterical neurosis, conversion type) F44.9 [facility] [id number] [place] [address] May, Pelvic pain R10.2 [facility] [id number] [place] [address] Apr, Gastroenteritis K52.9 [facility] [id number] [place] [address] Apr, Blood in urine R31.9 and Acu te cystitis with hematuria N30.01 [place] [address] [address] Apr, Major depressive disorder in partial rem ission F32.4 ; FRANCIS (generalized anxiety disorder) F41.1 and Conversion disorder (or hysterical neurosis, conversion type) F44.9 [place] [address] [address] Apr, [place] [address] [address] Apr, Abnormal mammogram R92.8 [place] [address] [address] Mar, [place] [address] [address] Mar, Gastroenteritis K52.9 and Seizure disord er G40.909 [place] [address] [address] Dec, [facility] [id number] [place] [address] Dec, Other headache syndrome G44. 89 [place] [address] [address] Dec, [place] [address] [address] Dec, Thoracic disc herniation M51.24 [place] [id number] [place] [address] Dec, [facility] [id number] [place] [address] Nov, Major depressive disorder in partial rem ission F32.4 and FRANCIS (generalized anxiety disorder) F41.1 [facility] [id number] [place] [address] Nov, [facility] [id number] [place] [address] Nov, Dorsalgia, unspecified M54.9 [facility] [id number] [place] [address] Oct, [facility] [address] [address] September, [facility] [id number] [place] [address] Aug, [facility] [address] [address] Aug, Major depressive disorder in partial rem ission F32.4 and FRANCIS (generalized anxiety disorder) F41.1 [facility] [id number] [place] [address] Aug, [facility] [id number] [place] [address] Jul, Abnormal mammogram R92.8 [facility] [id number] [place] [address] Jul, [facility] [address] [id number] [place] [address] Jul, [facility] [id number] [place] [address] Jul, [facility] [address] [id number] [place] [address] Jul, [facility] [id number] [place] [address] Jul, [facility] [id number] [place] [address] Jul, [facility] [address] [address] Jun, Major depressive disorder in partial rem ission F32.4 and FRANCIS (generalized anxiety disorder) F41.1 [facility] [address] [address] Jun, [facility] [address] [address] May, [facility] [address] [address] Apr, [facility] [address] [address] Mar, Major depressive disorder, recurrent epi sode, moderate F33.1 ; PTSD (post-traumatic stress disorder) F43.10 and FRANCIS (generalized anxiety disorder) F41.1 [facility] [address] [address] Mar, [facility] [address] [address] Mar, [facility] [address] [address] Mar, [facility] [address] [address] Mar, [facility] [address] [address] Jan, [facility] [address] [address] 15 Jan, 2015 [facility] [address] [address] 15 Jan, 2015 [facility] [address] [address] 14 Jan, 2015 Thoracic disc herniation 722.11 [facility] [id number] [place] [address] Dec, [facility] [id number] [place] [address] Dec, [facility] [id number] [place] [address] Dec, [facility] [id number] [place] [address] Nov, [facility] [id number] [place] [address] Nov, Generalized anxiety disorder 300.02 ; Po sttraumatic stress disorder 309.81 and Major depressive disorder, recurrent episode, moderate 296.32 [facility] [id number] [place] [address] Nov, [facility] [id number] [place] [address] Nov, [facility] [id number] [place] [address] Oct, [facility] [id number] [place] [address] Oct, [facility] [id number] [place] [address] Oct, [facility] [id number] [place] [address] September, [facility] [id number] [place] [address] September, [facility] [id number] [place] [address] Aug, [facility] [id number] [place] [address] Aug, [facility] [id number] [place] [address] Jul, [facility] [id number] [place] [address] Jul, [facility] [address] [facility] [id number] [place] [address] 17 Jul, 2014 [facility] [address] [facility] [id number] [place] [address] 17 Jul, 2014 [facility] [address] [facility] [id number] [place] [address] 16 Jul, 2014 [facility] [address] [id number] [place] [address] 16 Jul, 2014 [facility] [address] [id number] [place] [address] Jul, [facility] [address] [id number] [place] [address] Jul, [facility] [address] [id number] [place] [address] Jul, [facility] [address] [id number] [place] [address] Jul, [facility] [address] [id number] [place] [address] Jun, [facility] [address] [id number] [place] [address] Jun, [facility] [address] [id number] [place] [address] Jun, [facility] [address] [id number] [place] [address] May, [facility] [address] [id number] [place] [address] Apr, [facility] [address] [id number] [place] [address] Apr, [facility] [address] [id number] [place] [address] Apr, [facility] [address] [id number] [place] [address] Apr, [facility] [address] [id number] [place] [address] Apr, [facility] [address] [id number] [place] [address] Apr, [facility] [address] [id number] [place] [address] Apr, [facility] [address] [id number] [place] [address] Apr, [facility] [address] [id number] [place] [address] Mar, [facility] [address] [id number] [place] [address] Mar, [facility] [address] [id number] [place] [address] Mar, [facility] [address] [id number] [place] [address] Mar, [facility] [address] [id number] [place] [address] Mar, [facility] [address] [id number] [place] [address] Mar, [facility] [address] [id number] [place] [address] Mar, [facility] [address] [id number] [place] [address] Mar, [facility] [address] [id number] [place] [address] Mar, [facility] [address] [id number] [place] [address] Mar, [facility] [address] [id number] [place] [address] 17 Mar, 2014 [facility] [address] [id number] [place] [address] 14 Mar, 2014 [facility] [address] [id number] [place] [address] 14 Mar, 2014 [facility] [address] [id number] [place] [address] 07 Mar, 2013 [facility] [address] [id number] [place] [address] 07 Mar, 2013 [facility] [address] [id number] [place] [address] Mar, 2013 [facility] [address] [id number] [place] [address] 06 Oct, 2013 [facility] [address] [id number] [place] [address] 19 Sep, 2013 [facility] [address] [id number] [place] [address] 19 Sep, 2013 [facility] [address] [id number] [place] [address] 09 Sep, 2013 [facility] [address] [id number] [place] [address] 09 Sep, 2013 [facility] [address] [id number] [place] [address] 05 Sep, 2013 [facility] [address] [id number] [place] [address] 05 Sep, 2013 [facility] [address] [id number] [place] [address] 05 Sep, 2013 [facility] [address] [id number] [place] [address] 05 Sep, 2013 [facility] [address] [id number] [place] [address] 03 Sep, 2013 [facility] [address] [id number] [place] [address] 02 Sep, 2013 [facility] [address] [id number] [place] [address] 02 Sep, 2013 [facility] [address] [id number] [place] [address] 02 Sep, 2013 [facility] [address] [id number] [place] [address] Jan, [facility] [address] [facility] [id number] [place] [address] Dec, [facility] [address] [facility] [id number] [place] [address] Dec, [facility] [address] [id number] [place] [address] Dec, [facility] [address] [id number] [place] [address] Dec, [facility] [address] [id number] [place] [address] Dec, [facility] [address] [id number] [place] [address] Dec, [facility] [id number] Dec, [facility] [id number] Dec, [facility] [address] [id number] [place] [address] Dec, [facility] [address] [id number] [place] [address] Dec, [facility] [address] [id number] [place] [address] Dec, [facility] [address] [id number] [place] [address] Dec, [facility] [place] [facility] [address] [id number] [place] [address] Nov, [facility] [place] [facility] [address] [facility] [id number] [place] [address] Nov, [facility] [place] [facility] [address] [id number] [place] [address] Nov, [facility] [place] [facility] [address] [id number] [place] [address] Nov, [facility] [place] [facility] [address] [id number] [place] [address] Nov, [facility] [place] [facility] [address] [id number] [facility] [place] [address] Nov, [facility] [place] [facility] [address] [facility] [id number] [place] [address] Nov, [facility] [place] [facility] [address] [facility] [id number] [facility] [place] [address] Nov, [facility] [place] [facility] [address] [facility] [id number] [place] [address] Nov, [facility] [place] [facility] [address] [facility] [id number] [place] [address] Nov, [facility] [place] [facility] [address] [facility] [id number] [place] [address] Nov, [facility] [place] [facility] [address] [facility] [id number] [place] [address] Nov, [facility] [place] [facility] [address] [id number] [place] [address] Nov, [facility] [place] [facility] [address] [facility] [id number] [facility] [place] [address] Oct, [facility] [place] [facility] [address] [facility] [id number] [place] [address] Oct, [facility] [place] [facility] [address] [facility] [id number] [place] [address] Oct, [facility] [place] [facility] [address] [id number] [place] [address] Oct, [facility] [place] [facility] [address] [facility] [id number] [facility] [place] [address] Oct, [facility] [place] [facility] [address] [id number] [place] [address] Oct, [facility] [place] [facility] [address] [facility] [id number] [place] [address] Oct, [facility] [place] [facility] [address] [id number] [place] [address] Oct, [facility] [place] [facility] [address] [id number] [facility] [place] [address] Oct, [facility] [place] [facility] [address] [facility] [id number] [facility] [place] [address] Oct, [facility] [place] [facility] [address] [facility] [id number] [facility] [place] [address] Oct, [facility] [place] [facility] [address] [id number] [place] [address] Oct, [facility] [place] [facility] [address] [facility] [id number] [facility] [place] [address] September, [facility] [place] [facility] [address] [facility] [id number] [place] [address] September, [facility] [place] [facility] [address] [id number] [place] [address] September, [facility] [place] [facility] [address] [id number] [facility] [place] [address] September, [facility] [place] [facility] [address] [id number] [facility] [place] [address] Aug, [facility] [place] [facility] [address] [facility] [id number] [facility] [place] [address] Aug, [facility] [place] [facility] [address] [id number] [facility] [place] [address] Aug, [facility] [place] [facility] [address] [id number] [place] [address] Aug, [facility] [place] [facility] [address] [id number] [facility] [place] [address] Aug, [facility] [place] [facility] [address] [facility] [id number] [facility] [place] [address] Aug, [facility] [place] [facility] [address] [id number] [facility] [place] [address] Aug, [facility] [place] [facility] [address] [id number] [facility] [place] [address] Jul, [facility] [place] [facility] [address] [id number] [facility] [place] [address] Jul, [facility] [place] [facility] [address] [id number] [place] [address] 28 Jul, 2013 [facility] [place] [facility] [address] [id number] [place] [address] Jul, [facility] [place] [facility] [address] [id number] [place] [address] Jul, [facility] [place] [facility] [address] [id number] [place] [address] Jul, [facility] [place] [facility] [address] [id number] [place] [address] 18 Jul, 2013 [facility] [place] [facility] [address] [id number] [place] [address] Jul, [facility] [place] [facility] [address] [id number] [place] [address] Jul, [facility] [place] [facility] [address] [id number] [place] [address] 18 Jul, 2013 [facility] [place] [facility] [address] [id number] [place] [address] Jul, [facility] [place] [facility] [address] [id number] [place] [address] Jul, [facility] [place] [facility] [address] [id number] [place] [address] 14 Jul, 2013 [facility] [place] [facility] [address] [id number] [place] [address] 14 Jul, 2013 [facility] [place] [facility] [address] [id number] [place] [address] Jul, [facility] [place] [facility] [address] [id number] [place] [address] Jul, [facility] [place] [facility] [address] [id number] [place] [address] Jul, [facility] [place] [facility] [address] [id number] [place] [address] Jul, [facility] [place] [facility] [address] [id number] [place] [address] 31 Jun, 2013 [facility] [place] [facility] [address] [facility] [id number] [place] [address] 31 Jun, 2013 [facility] [place] [facility] [address] [id number] [place] [address] 15 Jun, 2013 [facility] [place] [facility] [address] [id number] [place] [address] 15 Jun, 2013 [facility] [place] [facility] [address] [id number] [place] [address] 14 Jun, 2013 [facility] [place] [facility] [address] [id number] [place] [address] 14 Jun, 2013 [facility] [place] [facility] [address] [id number] [place] [address] 14 Jun, 2013 [facility] [place] [facility] [address] [id number] [place] [address] 14 Jun, 2013 [facility] [place] [facility] [address] [id number] [place] [address] 14 Jun, 2013 [facility] [place] [facility] [address] [id number] [place] [address] 14 Jun, 2013 [facility] [place] [facility] [address] [id number] [place] [address] 27 May, 2013 [facility] [place] [facility] [address] [id number] [place] [address] 27 May, 2013 [facility] [place] [facility] [address] [id number] [place] [address] 26 May, 2013 [facility] [place] [facility] [address] [id number] [place] [address] 19 May, 2013 [facility] [place] [facility] [address] [id number] [place] [address] 19 May, 2013 [facility] [place] [facility] [address] [id number] [place] [address] 16 May, 2013 [facility] [place] [facility] [address] [id number] [place] [address] 16 May, 2013 [facility] [place] [facility] [address] [id number] [place] [address] 16 May, 2013 [facility] [place] [facility] [address] [id number] [place] [address] 16 May, 2013 [facility] [place] [facility] [address] [id number] [place] [address] 13 May, 2013 [facility] [place] [facility] [address] [id number] [place] [address] 13 May, 2013 [facility] [place] [facility] [address] [id number] [place] [address] 11 May, 2013 [facility] [place] [facility] [address] [id number] [place] [address] 20 Apr, 2013 [facility] [place] [facility] [address] [id number] [place] [address] 18 Apr, 2013 [facility] [place] [facility] [address] [id number] [place] [address] 18 Apr, 2013 [facility] [place] [facility] [address] [id number] [place] [address] 13 Apr, 2013 [facility] [place] [facility] [address] [id number] [place] [address] 13 Apr, 2013 [facility] [place] [facility] [address] [id number] [place] [address] 08 Apr, 2013 [facility] [place] [facility] [address] [id number] [place] [address] 08 Apr, 2013 [facility] [place] [facility] [address] [id number] [place] [address] 07 Apr, 2013 [facility] [place] [facility] [address] [id number] [place] [address] 07 Apr, 2013 [facility] [place] [facility] [id number] [place] [address] 07 Apr, 2013 [facility] [place] [facility] [address] [id number] [place] [address] 07 Apr, 2013 [facility] [place] [facility] [address] [id number] [place] [address] Mar, [facility] [place] [facility] [address] [facility] [id number] [place] [address] Mar, [facility] [place] [facility] [address] [facility] [id number] [place] [address] Mar, [facility] [place] [facility] [address] [id number] [place] [address] Mar, [facility] [place] [facility] [address] [id number] [place] [address] Mar, [facility] [place] [facility] [address] [facility] [id number] [place] [address] Mar, [facility] [place] [facility] [address] [id number] [place] [address] Mar, [facility] [place] [facility] [address] [id number] [place] [address] Mar, [facility] [place] [facility] [address] [id number] [place] [address] 18 Mar, 2013 [facility] [place] [facility] [address] [id number] [place] [address] Mar, [facility] [place] [facility] [address] [id number] [place] [address] Mar, [facility] [place] [facility] [address] [id number] [place] [address] Mar, [facility] [place] [facility] [address] [id number] [place] [address] 30 Jan, 2012 [facility] [place] [facility] [address] [id number] [place] [address] 25 Jan, 2012 [facility] [place] [facility] [address] [id number] [place] [address] 20 Jan, 2012 [facility] [place] [facility] [address] [id number] [place] [address] 10 Jan, 2012 [facility] [place] [facility] [address] [id number] [place] [address] Dec, 2012 [facility] [place] [facility] [address] [id number] [place] [address] Dec, [facility] [place] [facility] [address] [id number] [place] [address] Dec, [facility] [place] [facility] [address] [facility] [id number] [facility] [place] [address] Dec, [facility] [place] [facility] [address] [id number] [facility] [place] [address] Dec, [facility] [place] [facility] [address] [facility] [id number] [facility] [place] [address] Dec, [facility] [place] [facility] [address] [facility] [id number] [place] [address] Dec, [facility] [place] [facility] [address] [id number] [facility] [place] [address] Dec, [facility] [place] [facility] [address] [id number] [facility] [place] [address] Dec, [facility] [place] [facility] [address] [id number] [facility] [place] [address] Nov, [facility] [place] [facility] [address] [facility] [id number] [facility] [place] [address] Nov, [facility] [place] [facility] [address] [id number] [facility] [place] [address] Nov, [facility] [place] [facility] [address] [id number] [place] [address] Nov, [facility] [place] [facility] [address] [id number] [facility] [place] [address] Nov, [facility] [place] [facility] [address] [facility] [id number] [facility] [place] [address] Nov, [facility] [place] [facility] [address] [id number] [facility] [place] [address] Nov, [facility] [place] [facility] [address] [id number] [facility] [place] [address] Nov, [facility] [place] [facility] [address] [id number] [place] [address] Oct, [facility] [place] [facility] [address] [id number] [place] [address] 27 Oct, 2012 [facility] [place] [facility] [address] [id number] [place] [address] Oct, [facility] [place] [facility] [address] [id number] [place] [address] Oct, [facility] [place] [facility] [address] [id number] [place] [address] Oct, [facility] [place] [facility] [address] [id number] [place] [address] Oct, [facility] [place] [facility] [address] [id number] [place] [address] Oct, [facility] [place] [facility] [address] [id number] [place] [address] Oct, [facility] [place] [facility] [address] [id number] [place] [address] 19 Oct, 2012 [facility] [place] [facility] [address] [id number] [place] [address] 18 Oct, 2012 [facility] [place] [facility] [address] [id number] [place] [address] 17 Oct, 2012 [facility] [place] [facility] [address] [id number] [place] [address] 14 Oct, 2012 [facility] [place] [facility] [address] [id number] [place] [address] 07 Oct, 2012 [facility] [place] [facility] [address] [id number] [place] [address] September, [facility] [place] [facility] [address] [id number] [place] [address] September, [facility] [place] [facility] [address] [id number] [place] [address] September, [facility] [place] [facility] [address] [id number] [place] [address] Aug, [facility] [place] [facility] [address] [id number] [place] [address] Aug, [facility] [place] [facility] [address] [facility] [id number] [place] [address] Aug, [facility] [place] [facility] [address] [facility] [id number] [facility] [place] [address] 18 Aug, 2012 [facility] [place] [facility] [address] [id number] [place] [address] 18 Aug, 2012 [facility] [place] [facility] [address] [id number] [place] [address] 08 Aug, 2012 [facility] [place] [facility] [address] [facility] [id number] [place] [address] 05 Aug, 2012 [facility] [place] [facility] [address] [id number] [place] [address] Jul, [facility] [place] [facility] [address] [id number] [place] [address] Jul, [facility] [place] [facility] [address] [id number] [place] [address] 08 Jul, 2012 [facility] [place] [facility] [address] [id number] [place] [address] 08 Jul, 2012 [facility] [place] [facility] [address] [id number] [place] [address] 08 Jul, 2012 [facility] [place] [facility] [address] [id number] [place] [address] Jul, [facility] [place] [facility] [address] [id number] [place] [address] Jul, [facility] [place] [facility] [address] [id number] [place] [address] Jul, [facility] [place] [facility] [address] [id number] [place] [address] Jul, [facility] [place] [facility] [address] [id number] [place] [address] Jul, [facility] [place] [facility] [address] [id number] [place] [address] Jul, [facility] [place] [facility] [address] [id number] [place] [address] 06 Jul, 2012 [facility] [place] [facility] [address] [id number] [place] [address] Jul, [facility] [place] [facility] [address] [id number] [place] [address] 24 Jun, 2012 [facility] [place] [facility] [address] [id number] [place] [address] Jun, [facility] [place] [facility] [address] [id number] [place] [address] Jun, [facility] [place] [facility] [address] [id number] [place] [address] 17 Jun, 2012 [facility] [place] [facility] [address] [id number] [place] [address] 15 Jun, 2012 [facility] [place] [facility] [address] [id number] [place] [address] Jun, [facility] [place] [facility] [address] [id number] [place] [address] Jun, [facility] [place] [facility] [address] [id number] [place] [address] May, [facility] [place] [facility] [address] [id number] [place] [address] May, [facility] [place] [facility] [address] [id number] [place] [address] May, [facility] [place] [facility] [address] [id number] [place] [address] May, [facility] [place] [facility] [address] [id number] [place] [address] May, [facility] [place] [facility] [address] [id number] [place] [address] May, [facility] [place] [facility] [address] [id number] [place] [address] May, [facility] [place] [facility] [address] [id number] [place] [address] May, [facility] [place] [facility] [address] [id number] [place] [address] May, [facility] [place] [facility] [address] [id number] [place] [address] May, [facility] [place] [facility] [address] [id number] [place] [address] Apr, [facility] [place] [facility] [address] [id number] [place] [address] Apr, [facility] [place] [facility] [address] [id number] [place] [address] Apr, [facility] [place] [facility] [address] [id number] [place] [address] Apr, [facility] [place] [facility] [address] [id number] [place] [address] Apr, [facility] [place] [facility] [id number] [place] [address] Apr, [facility] [place] [facility] [address] [id number] [place] [address] Apr, [facility] [place] [facility] [address] [id number] [place] [address] Apr, [facility] [place] [facility] [address] [id number] [place] [address] Apr, [facility] [place] [facility] [address] [id number] [place] [address] Apr, [facility] [place] [facility] [address] [id number] [place] [address] Apr, [facility] [place] [facility] [address] [id number] [place] [address] Apr, [facility] [place] [facility] [address] [id number] [place] [address] Mar, [facility] [place] [facility] [address] [id number] [place] [address] Mar, [facility] [place] [facility] [address] [id number] [place] [address] Mar, 2011 [facility] [place] [facility] [address] [facility] [id number] [place] [address] Mar, 2011 [facility] [place] [facility] [address] [facility] [id number] [place] [address] Mar, 2011 [facility] [place] [facility] [address] [id number] [place] [address] Mar, 2011 [facility] [place] [facility] [address] [id number] [place] [address] Mar, 2011 [facility] [place] [facility] [address] [facility] [id number] [place] [address] Mar, 2011 [facility] [place] [facility] [address] [id number] [place] [address] Mar, 2011 [facility] [place] [facility] [address] [id number] [place] [address] Mar, 2011 [facility] [place] [facility] [address] [id number] [place] [address] Mar, 2011 [facility] [place] [facility] [address] [id number] [place] [address] Mar, [facility] [place] [facility] [address] [id number] [place] [address] Mar, [facility] [place] [facility] [address] [id number] [place] [address] Mar, [facility] [place] [facility] [address] [id number] [place] [address] Mar, [facility] [place] [facility] [address] [facility] [id number] [place] [address] Mar, [facility] [place] [facility] [address] [id number] [place] [address] 25 Jan, 2011 [facility] [place] [facility] [address] [id number] [place] [address] 24 Sep, 2011 [facility] [place] [facility] [address] [id number] [place] [address] 22 Jan, 2011 [facility] [place] [facility] [address] [id number] [facility] [place] [address] 22 Jan, 2011 [facility] [place] [facility] [address] [id number] [place] [address] 21 Jan, 2012 [facility] [place] [facility] [address] [id number] [place] [address] 18 Jan, 2012 [facility] [place] [facility] [address] [id number] [place] [address] 14 Jan, 2012 [facility] [place] [facility] [address] [id number] [place] [address] 07 Jan, 2012 [facility] [place] [facility] [address] [id number] [place] [address] 15 Dec, 2011 [facility] [place] [facility] [address] [id number] [place] [address] 10 Dec, 2011 [facility] [place] [facility] [address] [id number] [place] [address] Dec, [facility] [place] [facility] [address] [id number] [place] [address] Dec, [facility] [place] [facility] [address] [id number] [place] [address] Dec, [facility] [place] [facility] [address] [id number] [place] [address] Dec, [facility] [place] [facility] [address] [id number] [place] [address] Dec, [facility] [place] [facility] [address] [id number] [place] [address] Nov, [facility] [place] [facility] [address] [id number] [place] [address] Oct, [facility] [place] [facility] [address] [id number] [place] [address] Aug, [facility] [place] [facility] [address] [id number] [place] [address] Jul, [facility] [place] [facility] [address] [id number] [place] [address] Jul, [facility] [place] [facility] [address] [facility] [id number] [place] [address] 16 Jul, 2011 [facility] [place] [facility] [address] [id number] [place] [address] 14 Jul, 2011 [facility] [place] [facility] [address] [id number] [place] [address] 07 Jul, 2011 [facility] [place] [facility] [address] [id number] [place] [address] 02 Jul, 2011 [facility] [place] [facility] [address] [id number] [place] [address] 21 Jul, 2011 [facility] [place] [facility] [address] [id number] [place] [address] 15 Jul, 2011 [facility] [place] [facility] [address] [id number] [place] [address] 13 Jul, 2011 [facility] [place] [facility] [address] [id number] [place] [address] Jul, [facility] [place] [facility] [address] [id number] [place] [address] 02 Jul, 2011 [facility] [place] [facility] [address] [id number] [place] [address] 24 Jun, 2011 [facility] [place] [facility] [address] [id number] [place] [address] 24 Jun, 2011 [facility] [place] [facility] [address] [id number] [place] [address] Jun, [facility] [place] [facility] [address] [id number] [place] [address] Jun, [facility] [place] [facility] [address] [id number] [place] [address] Jun, [facility] [address] [id number] [place] [address] 05 Jun, 2011 [facility] [address] [id number] [place] [address] Jun, [facility] [address] [id number] [place] [address] 28 May, 2011 [facility] [address] [id number] [place] [address] May, [facility] [address] [id number] [place] [address] May, [facility] [address] [id number] [place] [address] 14 May, 2011 [facility] [address] [id number] [place] [address] 14 May, 2011 [facility] [address] [id number] [place] [address] May, [facility] [address] [id number] [place] [address] May, [facility] [id number] [place] [address] May, [facility] [address] [id number] [place] [address] May, [facility] [address] [id number] [place] [address] May, [facility] [id number] [place] [address] 15 Apr, 2011 [facility] [address] [id number] [place] [address] Apr, [facility] [address] [id number] [place] [address] Apr, [facility] [address] [id number] [place] [address] Apr, [facility] [id number] [place] [address] Mar, [facility] [address] [id number] [place] [address] 24 Mar, 2011 [facility] [address] [id number] [place] [address] 17 Mar, 2011 [facility] [address] [facility] [id number] [place] [address] 17 Mar, 2011 IMMUNIZATIONS No Known Immunizations [...]
--- OUTSIDE RECORDS SUMMARY | 2020-01-03 18:20 | XMS REPORT ---
Author Author Pattie Moffett Doctor Organization [facility] Address Unknown Phone Unavailable Care Team Providers Care Equipment Cleaner Name Role Phone Migration, Doctor Unavailable Unavailable PROBLEMS Type Condition ICD9-CM Code WZP22-IV Code Onset Dates Condition S tatus SNOMED Code Problem FRANCIS (generalized anxiety disorder) F41.1 Active 84223054 Problem Thoracic disc herniation M51.24 Activ e 212923484 Problem Major depressive disorder in partial remission F32 .4 Active 76932908 Problem Paroxysmal tachycardia I47.9 Active 76305267 Problem Slow transit constipation K59.01 Acti ve 36263464 Problem Constipation, unspecified constipation type K59.00 Active 39056643 Problem Obesity (BMI 30.0-34.9) E66.9 Active 984553834117293 Problem Seizure disorder G40.909 Active 128 654944 Problem High blood pressure I10 Active 39416638 Problem Conversion disorder (or hysterical neurosis, conversion ty pe) F44.9 Active 80446671 Problem Mild episode of recurrent major depressive disorder F33.0 Active 682956413 Problem Restless leg syndrome G25.81 Active 63924353 Problem Other chronic pain G89.29 Active 8 2509384 Problem Mild intermittent asthma without complication J45. 20 Active 387180356 ALLERGIES No Information ENCOUNTERS Encounter Location Date Diagnosis [place] [address] [address] Jul, [place] [address] [address] 27 Jul, 2019 Major depressive disorder in partial rem ission F32.4 ; FRANCIS (generalized anxiety disorder) F41.1 ; Restless leg syndrome G25.81 and High blood pressure I10 [facility] [address] [address] 17 Jul, 2019 [place] [address] [address] Jul, [facility] [address] [id number] [place] [address] Jun, [facility] [address] [address] May, [facility] [address] [place] [id number] [place] [address] Apr, [facility] [address] [address] Apr, [facility] [address] [address] Mar, [facility] [address] [address] Mar, Major depressive disorder in partial rem ission F32.4 ; FRANCIS (generalized anxiety disorder) F41.1 and Restless leg syndrome G25.81 [facility] [address] [address] Mar, Obesity (BMI 30.0-34.9) E66.9 [facility] [address] [place] [id number] [place] [address] Jan, [facility] [address] [facility] [id number] [address] [place] [address] Jan, Burn T30.0 [facility] [address] [id number] [place] [address] Dec, [facility] [address] [address] Nov, [facility] [address] [id number] [place] [address] Nov, [facility] [address] [id number] [place] [id number] Nov, Dental examination Z01.20 [facility] [address] [id number] [place] [address] September, [facility] [address] [id number] [place] [id number] September, Decay, teeth K02.9 and Dental examinatio n Z01.20 [facility] [address] [id number] [place] [id number] September, Dental examination Z01.20 [facility] [address] [place] [id number] [place] [address] September, FRANCIS (generalized anxiety disorder) F41.1 ; Major depressive disorder in partial remission F32.4 and Restless leg syndrome G25.81 [facility] [address] [address] Aug, [place] [address] [address] Jul, [place] [address] [address] Jul, Encounter to discuss test results Z71.2 [place] [address] [address] Jul, Pelvic pain R10.2 ; Screening for breast cancer Z12.31 and Obesity (BMI 30.0-34.9) E66.9 [place] [address] [address] Jul, Mild intermittent asthma without complic ation J45.20 [place] [address] [address] Jul, Major depressive disorder in partial rem ission F32.4 and FRANCIS (generalized anxiety disorder) F41.1 [facility] [address] [address] Jul, [facility] [address] [address] Jun, [place] [address] [address] May, Major depressive disorder in partial rem ission F32.4 ; FRANCIS (generalized anxiety disorder) F41.1 and Restless leg syndrome G25.81 [place] [address] [address] Apr, [facility] [address] [address] Mar, [facility] [address] [facility] [id number] [address] [place] [address] 21 Jan, 2018 Pain in thoracic spine M54.6 and Other chronic pain G89.29 [facility] [address] [address] 14 Jan, 2018 [facility] [address] [address] 11 Jan, 2018 Mild episode of recurrent major depressi ve disorder F33.0 ; FRANCIS (generalized anxiety disorder) F41.1 and Restless leg syndrome G25.81 [facility] [address] [address] Dec, [facility] [address] [address] Dec, Hospital discharge follow-up Z09 [facility] [address] [address] Nov, [facility] [address] [address] Nov, [facility] [address] [address] September, [facility] [address] [address] September, [facility] [address] [address] September, Major depressive disorder in partial rem ission F32.4 ; FRANCIS (generalized anxiety disorder) F41.1 and Restless leg syndrome G25.81 [facility] [address] [address] September, [facility] [address] [address] Jul, [place] [address] [address] Jul, Dorsalgia, unspecified M54.9 [place] [address] [address] Jul, Mild episode of recurrent major depressi ve disorder F33.0 and FRANCIS (generalized anxiety disorder) F41.1 [place] [address] [address] May, [facility] [address] [place] [id number] [address] [place] [address] May, Dysuria R30.0 and Acute cyst itis with hematuria N30.01 [place] [address] [address] Apr, [place] [address] [address] Apr, Major depressive disorder in partial rem ission F32.4 and FRANCIS (generalized anxiety disorder) F41.1 [place] [address] [address] Mar, Paroxysmal tachycardia I47.9 [place] [address] [address] Mar, Paroxysmal tachycardia I47.9 and Pain of left lower extremity M79.605 [place] [address] [address] Mar, FRANCIS (generalized anxiety disorder) F41.1 and Major depressive disorder in partial remission F32.4 [place] [address] [address] Jan, [place] [address] [address] 14 Jan, 2017 [place] [address] [address] Jan, [facility] [address] [place] [id number] [place] [address] Dec, Constipation, unspecified co nstipation type K59.00 [place] [address] [address] Dec, [place] [address] [address] Nov, [place] [address] [address] Nov, Major depressive disorder in partial rem ission F32.4 and FRANCIS (generalized anxiety disorder) F41.1 [facility] [address] [place] [id number] [place] [address] Oct, Abdominal pain R10.9 and Slo w transit constipation K59.01 [place] [address] [address] Aug, Major depressive disorder in partial rem ission F32.4 ; FRANCIS (generalized anxiety disorder) F41.1 ; Conversion disorder (or hysterical neurosis, conversion type) F44.9 ; Dorsalgia, unspecified M54.9 and Long-term use of high-risk medication Z79.899 [place] [address] [address] Aug, [place] [address] [address] Jul, Paroxysmal tachycardia I47.9 [place] [address] [address] Jul, Paroxysmal tachycardia I47.9 [place] [address] [address] Jun, [place] [address] [address] Jun, Major depressive disorder in partial rem ission F32.4 ; FRANCIS (generalized anxiety disorder) F41.1 and Conversion disorder (or hysterical neurosis, conversion type) F44.9 [facility] [address] [place] [address] May, Pelvic pain R10.2 [facility] [address] [address] Apr, Gastroenteritis K52.9 [facility] [address] [address] Apr, Blood in urine R31.9 and Acu te cystitis with hematuria N30.01 [place] [address] [address] Apr, Major depressive disorder in partial rem ission F32.4 ; FRANCIS (generalized anxiety disorder) F41.1 and Conversion disorder (or hysterical neurosis, conversion type) F44.9 [place] [address] [address] Apr, [place] [address] [address] Apr, Abnormal mammogram R92.8 [place] [address] [address] Mar, [place] [address] [address] Mar, Gastroenteritis K52.9 and Seizure disord er G40.909 [place] [address] [address] Dec, [facility] [address] [place] [id number] [place] [address] Dec, Other headache syndrome G44. 89 [place] [address] [address] Dec, [place] [address] [address] Dec, Thoracic disc herniation M51.24 [place] [address] [address] Dec, [facility] [address] [id number] [place] [address] Nov, Major depressive disorder in partial rem ission F32.4 and FRANCIS (generalized anxiety disorder) F41.1 [facility] [address] [place] [id number] [place] [address] Nov, [facility] [address] [place] [id number] [place] [address] Nov, Dorsalgia, unspecified M54.9 [facility] [address] [place] [id number] [place] [address] Oct, [facility] [address] [address] September, [facility] [address] [place] [id number] [place] [address] Aug, [facility] [address] [address] Aug, Major depressive disorder in partial rem ission F32.4 and FRANCIS (generalized anxiety disorder) F41.1 [facility] [address] [place] [id number] [place] [address] Aug, [facility] [address] [place] [id number] [place] [address] Jul, Abnormal mammogram R92.8 [facility] [address] [place] [id number] [place] [address] Jul, [facility] [address] [place] [id number] [place] [address] Jul, [facility] [address] [id number] [place] [address] Jul, [facility] [address] [place] [id number] [place] [address] Jul, [facility] [address] [place] [id number] [place] [address] Jul, [facility] [address] [place] [id number] [place] [address] Jul, [facility] [address] [address] Jun, Major depressive disorder in partial rem ission F32.4 and FRANCIS (generalized anxiety disorder) F41.1 [facility] [address] [address] Jun, [facility] [address] [address] May, [facility] [address] [address] Apr, [facility] [address] [address] Mar, Major depressive disorder, recurrent epi sode, moderate F33.1 ; PTSD (post-traumatic stress disorder) F43.10 and FRANCIS (generalized anxiety disorder) F41.1 [facility] [address] [address] Mar, [facility] [address] [address] Mar, [facility] [address] [address] Mar, [facility] [address] [address] Mar, [facility] [address] [address] 23 Jan, 2015 [facility] [address] [address] 15 Jan, 2015 [facility] [address] [address] 15 Jan, 2015 [facility] [address] [address] 14 Jan, 2015 Thoracic disc herniation 722.11 [facility] [address] [address] Dec, [facility] [address] [place] [id number] [place] [address] Dec, [facility] [address] [place] [id number] [place] [address] Dec, [facility] [address] [place] [id number] [place] [address] Nov, [facility] [address] [place] [id number] [place] [address] Nov, Generalized anxiety disorder 300.02 ; Po sttraumatic stress disorder 309.81 and Major depressive disorder, recurrent episode, moderate 296.32 [facility] [address] [place] [id number] [place] [address] Nov, [facility] [address] [place] [id number] [place] [address] Nov, [facility] [address] [place] [id number] [place] [address] Oct, [facility] [address] [place] [id number] [place] [address] Oct, [facility] [address] [place] [id number] [place] [address] Oct, [facility] [address] [place] [id number] [place] [address] September, [facility] [address] [place] [id number] [place] [address] September, [facility] [address] [place] [id number] [place] [address] Aug, [facility] [address] [place] [id number] [place] [address] Aug, [facility] [address] [place] [id number] [place] [address] Jul, [facility] [address] [place] [id number] [place] [address] Jul, [facility] [address] [place] [id number] [place] [address] 17 Jul, 2014 [facility] [address] [id number] [facility] [place] [address] 17 Jul, 2014 [facility] [address] [id number] [facility] [place] [address] 16 Jul, 2014 [facility] [address] [id number] [place] [address] 16 Jul, 2014 [facility] [address] [id number] [facility] [place] [address] Jul, [facility] [address] [facility] [id number] [facility] [place] [address] Jul, [facility] [address] [id number] [place] [address] Jul, [facility] [address] [id number] [place] [address] Jul, [facility] [address] [id number] [place] [address] Jun, [facility] [address] [id number] [place] [address] Jun, [facility] [address] [id number] [place] [address] Jun, [facility] [address] [id number] [place] [address] May, [facility] [address] [id number] [place] [address] Apr, [facility] [address] [id number] [place] [address] Apr, [facility] [address] [id number] [place] [address] Apr, [facility] [address] [id number] [place] [address] Apr, [facility] [address] [id number] [place] [address] Apr, [facility] [address] [id number] [place] [address] 07 Apr, 2013 [facility] [address] [facility] [id number] [place] [address] Apr, [facility] [address] [id number] [place] [address] Apr, [facility] [address] [id number] [place] [address] Mar, [facility] [address] [id number] [place] [address] 24 Mar, 2014 [facility] [address] [id number] [place] [address] 24 Mar, 2014 [facility] [address] [id number] [place] [address] Mar, [facility] [address] [id number] [place] [address] Mar, [facility] [address] [id number] [place] [address] Mar, [facility] [address] [id number] [place] [address] 24 Mar, 2014 [facility] [address] [id number] [place] [address] Mar, [facility] [address] [id number] [place] [address] Mar, [facility] [address] [id number] [place] [address] Mar, [facility] [address] [id number] [place] [address] 17 Mar, 2014 [facility] [address] [id number] [place] [address] 14 Mar, 2014 [facility] [address] [id number] [place] [address] 14 Mar, 2014 [facility] [address] [id number] [place] [address] Mar, 2013 [facility] [address] [id number] [place] [address] 07 Mar, 2013 [facility] [address] [id number] [place] [address] Mar, 2013 [facility] [address] [id number] [place] [address] Oct, 2013 [facility] [address] [id number] [place] [address] 19 Sep, 2013 [facility] [address] [id number] [place] [address] 19 Sep, 2013 [facility] [address] [id number] [place] [address] 09 Sep, 2013 [facility] [address] [id number] [place] [address] 09 Sep, 2013 [facility] [address] [id number] [place] [address] 05 Sep, 2013 [facility] [address] [id number] [place] [address] 05 Sep, 2013 [facility] [address] [id number] [place] [address] 05 Sep, 2013 [facility] [address] [id number] [place] [address] 05 Sep, 2013 [facility] [address] [id number] [place] [address] 03 Sep, 2013 [facility] [address] [id number] [place] [address] 02 Sep, 2013 [facility] [address] [id number] [place] [address] 02 Sep, 2013 [facility] [address] [id number] [place] [address] 02 Sep, 2013 [facility] [address] [id number] [place] [address] 02 Sep, 2013 [facility] [address] [id number] [place] [address] Dec, [facility] [address] [facility] [id number] [place] [address] Dec, [facility] [address] [id number] [place] [address] Dec, [facility] [address] [id number] [place] [address] Dec, [facility] [address] [id number] [place] [address] Dec, [facility] [address] [id number] [place] [address] Dec, [facility] [place] [id number] Dec, [facility] [place] [id number] Dec, [facility] [address] [id number] [place] [address] Dec, [facility] [address] [id number] [place] [address] Dec, [facility] [address] [id number] [place] [address] Dec, [facility] [place] [facility] [address] [id number] [place] [address] Dec, [facility] [place] [facility] [address] [id number] [place] [address] Nov, [facility] [place] [facility] [address] [id number] [place] [address] Nov, [facility] [place] [facility] [address] [id number] [place] [address] Nov, [facility] [place] [facility] [address] [id number] [place] [address] Nov, [facility] [place] [facility] [address] [id number] [place] [address] Nov, [facility] [place] [facility] [address] [id number] [place] [address] Nov, [facility] [place] [facility] [address] [facility] [id number] [facility] [place] [address] Nov, [facility] [place] [facility] [address] [facility] [id number] [facility] [address] Nov, [facility] [place] [facility] [address] [id number] [facility] [place] [address] Nov, [facility] [place] [facility] [address] [facility] [id number] [facility] [address] Nov, [facility] [place] [facility] [address] [facility] [id number] [facility] [address] Nov, [facility] [place] [facility] [address] [facility] [id number] [place] [address] Nov, [facility] [place] [facility] [address] [id number] [facility] [place] [address] Nov, [facility] [place] [facility] [address] [id number] [facility] [place] [address] Oct, [facility] [place] [facility] [address] [facility] [id number] [facility] [place] [address] Oct, [facility] [place] [facility] [address] [id number] [facility] [place] [address] Oct, [facility] [place] [facility] [address] [id number] [place] [address] Oct, [facility] [place] [facility] [address] [id number] [place] [address] Oct, [facility] [place] [facility] [address] [facility] [id number] [facility] [place] [address] Oct, [facility] [place] [facility] [address] [facility] [id number] [place] [address] Oct, [facility] [place] [facility] [address] [facility] [id number] [place] [address] Oct, [facility] [place] [facility] [address] [id number] [facility] [place] [address] Oct, [facility] [place] [facility] [address] [facility] [id number] [facility] [place] [address] Oct, [facility] [place] [facility] [address] [id number] [facility] [place] [address] Oct, [facility] [place] [facility] [address] [facility] [id number] [place] [address] Oct, [facility] [address] [id number] [facility] [place] [address] September, [facility] [address] [facility] [id number] [facility] [place] [address] September, [facility] [address] [id number] [facility] [place] [address] September, [facility] [address] [id number] [place] [address] September, [facility] [address] [id number] [place] [address] Aug, [facility] [address] [id number] [place] [address] Aug, [facility] [address] [facility] [id number] [facility] [place] [address] Aug, [facility] [address] [id number] [place] [address] Aug, [facility] [address] [id number] [place] [address] Aug, [facility] [address] [id number] [place] [address] Aug, [facility] [address] [facility] [id number] [place] [address] Aug, [facility] [address] [id number] [place] [address] Jul, [facility] [address] [id number] [place] [address] Jul, [facility] [address] [id number] [place] [address] Jul, [facility] [address] [facility] [id number] [place] [address] Jul, [facility] [address] [id number] [place] [address] Jul, [facility] [address] [id number] [place] [address] Jul, [facility] [address] [id number] [place] [address] Jul, [facility] [address] [facility] [id number] [place] [address] Jul, [facility] [address] [id number] [place] [address] Jul, [facility] [address] [id number] [place] [address] Jul, [facility] [address] [id number] [place] [address] Jul, [facility] [address] [id number] [place] [address] Jul, [facility] [address] [id number] [place] [address] Jul, [facility] [address] [id number] [place] [address] 14 Jul, 2013 [facility] [address] [id number] [place] [address] Jul, [facility] [address] [id number] [place] [address] Jul, [facility] [address] [id number] [place] [address] Jul, [facility] [address] [id number] [place] [address] Jul, [facility] [address] [id number] [place] [address] Jun, [facility] [address] [id number] [place] [address] 31 Jun, 2013 [facility] [address] [id number] [place] [address] 15 Jun, 2013 [facility] [address] [id number] [place] [address] 15 Jun, 2013 [facility] [address] [id number] [place] [address] 14 Jun, 2013 [facility] [address] [id number] [place] [address] 14 Jun, 2013 [facility] [address] [id number] [place] [address] 14 Jun, 2013 [facility] [address] [id number] [place] [address] 14 Jun, 2013 [facility] [address] [id number] [place] [address] 14 Jun, 2013 [facility] [address] [id number] [place] [address] 14 Jun, 2013 [facility] [address] [id number] [place] [address] 27 May, 2013 [facility] [address] [id number] [place] [address] 27 May, 2013 [facility] [address] [id number] [place] [address] 26 May, 2013 [facility] [address] [id number] [place] [address] 19 May, 2013 [facility] [address] [id number] [place] [address] 19 May, 2013 [facility] [address] [id number] [place] [address] 16 May, 2013 [facility] [address] [id number] [place] [address] 16 May, 2013 [facility] [address] [id number] [place] [address] 16 May, 2013 [facility] [address] [id number] [place] [address] 16 May, 2013 [facility] [address] [id number] [place] [address] 13 May, 2013 [facility] [address] [id number] [place] [address] 13 May, 2013 [facility] [address] [id number] [place] [address] 11 May, 2013 [facility] [address] [id number] [place] [address] 20 Apr, 2013 [facility] [address] [id number] [place] [address] 18 Apr, 2013 [facility] [address] [id number] [place] [address] 18 Apr, 2013 [facility] [address] [id number] [place] [address] Apr, [facility] [address] [id number] [place] [address] Apr, [facility] [address] [id number] [place] [address] 08 Apr, 2013 [facility] [address] [id number] [place] [address] 08 Apr, 2013 [facility] [address] [id number] [place] [address] 07 Apr, 2013 [facility] [address] [id number] [place] [address] 07 Apr, 2013 [facility] [address] [id number] [place] [address] 07 Apr, 2013 [facility] [address] [id number] [place] [address] 07 Apr, 2013 [facility] [address] [id number] [place] [address] Mar, [facility] [address] [id number] [place] [address] Mar, [facility] [address] [facility] [id number] [place] [address] Mar, [facility] [address] [facility] [id number] [place] [address] Mar, [facility] [address] [id number] [place] [address] Mar, [facility] [address] [id number] [place] [address] Mar, [facility] [address] [facility] [id number] [place] [address] Mar, [facility] [address] [id number] [place] [address] Mar, [facility] [address] [id number] [place] [address] Mar, [facility] [address] [id number] [place] [address] Mar, [facility] [address] [id number] [place] [address] 15 Mar, 2013 [facility] [address] [id number] [place] [address] Mar, [facility] [address] [id number] [place] [address] 30 Jan, 2013 [facility] [address] [id number] [place] [address] 25 Jan, 2013 [facility] [address] [id number] [place] [address] 20 Jan, 2012 [facility] [address] [id number] [place] [address] 10 Jan, 2013 [facility] [address] [id number] [place] [address] Dec, [facility] [address] [id number] [place] [address] Dec, [facility] [address] [id number] [facility] [place] [address] Dec, [facility] [address] [id number] [place] [address] Dec, [facility] [address] [facility] [id number] [place] [address] Dec, [facility] [address] [id number] [place] [address] Dec, [facility] [address] [facility] [id number] [facility] [place] [address] Dec, [facility] [address] [id number] [facility] [place] [address] Dec, [facility] [address] [id number] [place] [address] Dec, [facility] [address] [id number] [place] [address] Nov, [facility] [address] [id number] [place] [address] Nov, [facility] [address] [id number] [place] [address] Nov, [facility] [address] [id number] [place] [address] Nov, [facility] [address] [id number] [place] [address] Nov, [facility] [address] [id number] [place] [address] Nov, [facility] [address] [facility] [id number] [place] [address] Nov, [facility] [address] [id number] [place] [address] Nov, [facility] [address] [id number] [place] [address] Oct, [facility] [address] [id number] [place] [address] Oct, [facility] [address] [id number] [place] [address] Oct, [facility] [address] [id number] [place] [address] Oct, [facility] [address] [id number] [place] [address] Oct, [facility] [address] [id number] [place] [address] Oct, [facility] [address] [id number] [place] [address] Oct, [facility] [address] [id number] [place] [address] Oct, [facility] [address] [id number] [place] [address] Oct, [facility] [address] [id number] [place] [address] 18 Oct, 2012 [facility] [address] [id number] [place] [address] 17 Oct, 2012 [facility] [address] [id number] [place] [address] 14 Oct, 2012 [facility] [address] [id number] [place] [address] 07 Oct, 2012 [facility] [address] [id number] [place] [address] 30 Sep, 2012 [facility] [address] [id number] [place] [address] September, [facility] [address] [id number] [place] [address] September, [facility] [address] [id number] [place] [address] Aug, [facility] [address] [id number] [place] [address] Aug, [facility] [address] [id number] [place] [address] 18 Aug, 2012 [facility] [address] [id number] [facility] [place] [address] 18 Aug, 2012 [facility] [address] [id number] [facility] [place] [address] 18 Aug, 2012 [facility] [address] [id number] [place] [address] 08 Aug, 2012 [facility] [address] [id number] [facility] [place] [address] 05 Aug, 2012 [facility] [address] [id number] [facility] [place] [address] Jul, [facility] [address] [id number] [place] [address] Jul, [facility] [address] [id number] [place] [address] 08 Jul, 2012 [facility] [address] [id number] [place] [address] 08 Jul, 2012 [facility] [address] [id number] [place] [address] Jul, [facility] [address] [id number] [place] [address] Jul, [facility] [address] [id number] [place] [address] Jul, [facility] [address] [id number] [place] [address] Jul, [facility] [address] [id number] [place] [address] Jul, [facility] [address] [id number] [place] [address] Jul, [facility] [address] [id number] [place] [address] Jul, [facility] [address] [id number] [place] [address] 06 Jul, 2012 [facility] [address] [id number] [place] [address] Jul, [facility] [address] [id number] [place] [address] Jun, [facility] [address] [id number] [place] [address] Jun, [facility] [address] [id number] [place] [address] Jun, [facility] [address] [id number] [place] [address] Jun, [facility] [address] [id number] [place] [address] 15 Jun, 2012 [facility] [address] [id number] [place] [address] Jun, [facility] [address] [id number] [place] [address] Jun, [facility] [address] [id number] [place] [address] May, [facility] [address] [id number] [place] [address] May, [facility] [address] [id number] [place] [address] May, [facility] [address] [id number] [place] [address] May, [facility] [address] [id number] [place] [address] May, [facility] [address] [id number] [place] [address] May, [facility] [address] [id number] [place] [address] May, [facility] [address] [id number] [place] [address] May, [facility] [address] [id number] [place] [address] May, [facility] [address] [id number] [place] [address] May, [facility] [address] [id number] [place] [address] Apr, [facility] [address] [id number] [place] [address] Apr, [facility] [address] [id number] [place] [address] Apr, [facility] [address] [id number] [place] [address] Apr, [facility] [address] [id number] [place] [address] Apr, [facility] [address] [id number] [place] [address] Apr, [facility] [address] [id number] [place] [address] Apr, [facility] [address] [id number] [place] [address] Apr, [facility] [address] [id number] [place] [address] Apr, [facility] [address] [id number] [place] [address] Apr, [facility] [address] [id number] [place] [address] Apr, [facility] [address] [id number] [place] [address] Apr, [facility] [address] [id number] [place] [address] Mar, [facility] [address] [id number] [place] [address] Mar, [facility] [address] [id number] [place] [address] Mar, [facility] [address] [id number] [place] [address] 30 Mar, 2011 [facility] [address] [id number] [place] [address] Mar, 2011 [facility] [address] [id number] [place] [address] Mar, 2011 [facility] [address] [id number] [place] [address] Mar, 2011 [facility] [address] [id number] [place] [address] Mar, 2011 [facility] [address] [id number] [place] [address] Mar, [facility] [address] [id number] [place] [address] Mar, [facility] [address] [id number] [place] [address] Mar, [facility] [address] [id number] [place] [address] Mar, [facility] [address] [id number] [place] [address] Mar, [facility] [address] [id number] [place] [address] Mar, [facility] [address] [id number] [place] [address] Mar, [facility] [address] [id number] [place] [address] Mar, [facility] [address] [id number] [place] [address] 25 Jan, 2011 [facility] [address] [id number] [place] [address] 24 Sep, 2011 [facility] [place] [facility] [address] [id number] [place] [address] 22 Jan, 2011 [facility] [place] [facility] [address] [id number] [place] [address] 22 Jan, 2011 [facility] [place] [facility] [address] [id number] [place] [address] 21 Jan, 2012 [facility] [place] [facility] [address] [id number] [place] [address] 18 Jan, 2012 [facility] [place] [facility] [address] [id number] [place] [address] 14 Jan, 2012 [facility] [place] [facility] [address] [id number] [place] [address] 07 Jan, 2012 [facility] [place] [facility] [address] [id number] [place] [address] 15 Dec, 2011 [facility] [place] [facility] [address] [id number] [place] [address] Dec, [facility] [place] [facility] [address] [id number] [place] [address] Dec, [facility] [place] [facility] [address] [id number] [place] [address] Dec, [facility] [place] [facility] [address] [id number] [place] [address] Dec, [facility] [place] [facility] [address] [id number] [place] [address] Dec, [facility] [place] [facility] [address] [id number] [place] [address] Dec, [facility] [place] [facility] [address] [id number] [place] [address] Nov, [facility] [place] [facility] [address] [id number] [place] [address] Oct, [facility] [place] [facility] [address] [id number] [place] [address] Aug, [facility] [place] [facility] [address] [id number] [place] [address] Jul, [facility] [place] [facility] [address] [id number] [place] [address] Jul, [facility] [place] [facility] [address] [id number] [place] [address] 16 Jul, 2011 [facility] [place] [facility] [address] [facility] [id number] [facility] [place] [address] 14 Jul, 2011 [facility] [place] [facility] [address] [id number] [facility] [place] [address] 07 Jul, 2011 [facility] [place] [facility] [address] [id number] [facility] [place] [address] 02 Jul, 2011 [facility] [place] [facility] [address] [id number] [facility] [place] [address] Jul, [facility] [place] [facility] [address] [facility] [id number] [facility] [address] 15 Jul, 2011 [facility] [place] [facility] [address] [id number] [place] [address] 13 Jul, 2011 [facility] [place] [facility] [address] [id number] [facility] [place] [address] Jul, [facility] [place] [facility] [address] [id number] [facility] [place] [address] Jul, [facility] [place] [facility] [address] [id number] [facility] [place] [address] Jun, [facility] [place] [facility] [address] [id number] [place] [address] Jun, [facility] [place] [facility] [address] [id number] [place] [address] Jun, [facility] [place] [facility] [address] [id number] [place] [address] Jun, [facility] [place] [facility] [address] [id number] [facility] [place] [address] Jun, [facility] [place] [facility] [address] [id number] [place] [address] Jun, [facility] [place] [facility] [address] [id number] [facility] [place] [address] Jun, [facility] [place] [facility] [address] [id number] [facility] [place] [address] May, [facility] [place] [facility] [address] [id number] [place] [address] May, [facility] [place] [facility] [address] [id number] [place] [address] May, [facility] [place] [facility] [address] [id number] [place] [address] 14 May, 2011 [facility] [place] [facility] [address] [id number] [place] [address] 14 May, 2011 [facility] [place] [facility] [address] [id number] [place] [address] 12 May, 2011 [facility] [place] [facility] [address] [id number] [place] [address] May, [facility] [place] [facility] [address] [id number] [place] [address] May, [facility] [place] [facility] [id number] [place] [address] May, [facility] [place] [facility] [address] [id number] [place] [address] May, [facility] [place] [facility] [address] [id number] [place] [address] Apr, [facility] [place] [facility] [address] [id number] [place] [address] Apr, [facility] [place] [facility] [address] [id number] [place] [address] Apr, [facility] [place] [facility] [address] [id number] [place] [address] Apr, [facility] [place] [facility] [address] [id number] [place] [address] Mar, [facility] [place] [facility] [id number] [place] [address] 24 Mar, 2011 [facility] [place] [facility] [address] [id number] [place] [address] Mar, [facility] [place] [facility] [id number] [place] [address] Mar, IMMUNIZATIONS No Known Immunizations SOCIAL HISTORY [...]
--- OUTSIDE RECORDS SUMMARY | 2020-01-03 18:20 | XMS REPORT ---
Author Author Pattie Mckinley Organization [facility] Address [address] [place] [address] Care Team Providers Care Binding Stitcher Name Role Phone CHRIS Mckinley Unavailable PROBLEMS Type Condition ICD9-CM Code [id number] Code Onset Dates Condition S tatus SNOMED Code Problem FRANCIS (generalized anxiety disorder) F41.1 Active 69314912 Problem Thoracic disc herniation M51.24 Activ e 285939753 Problem Major depressive disorder in partial remission F32 .4 Active 67359693 Problem Paroxysmal tachycardia I47.9 Active 95256889 Problem Slow transit constipation K59.01 Acti ve 41584744 Problem Constipation, unspecified constipation type K59.00 Active 09359996 Problem Obesity (BMI 30.0-34.9) E66.9 Active 287575734523462 Problem Seizure disorder G40.909 Active 128 463266 Problem High blood pressure I10 Active 86747294 Problem Conversion disorder (or hysterical neurosis, conversion ty pe) F44.9 Active 39445803 Problem Mild episode of recurrent major depressive disorder F33.0 Active 082413425 Problem Restless leg syndrome G25.81 Active 96956965 Problem Other chronic pain G89.29 Active 8 0080405 Problem Mild intermittent asthma without complication J45. 20 Active [id number] ALLERGIES No Information ENCOUNTERS Encounter Location Date Diagnosis [facility] [id number] [place] [address] Jul, [facility] [address] [address] Jul, Major depressive disorder in partial rem ission F32.4 ; FRANCIS (generalized anxiety disorder) F41.1 ; Restless leg syndrome G25.81 and High blood pressure I10 [facility] [address] [address] Jul, [facility] [id number] [place] [address] Jul, [facility] [id number] [place] [address] Jun, [facility] [id number] [place] [address] May, [facility] [address] [address] Apr, [facility] [address] [address] Apr, [facility] [address] [address] Mar, [facility] [address] [address] Mar, Major depressive disorder in partial rem ission F32.4 ; FRANCIS (generalized anxiety disorder) F41.1 and Restless leg syndrome G25.81 [facility] [id number] [place] [address] Mar, Obesity (BMI 30.0-34.9) E66.9 [facility] [id number] [place] [address] Jan, [facility] [address] [facility] [id number] [address] [place] [address] Jan, Burn T30.0 [facility] [id number] [place] [address] Dec, [facility] [address] [address] Nov, [facility] [id number] [place] [address] Nov, [facility] [address] [facility] [place] [id number] Nov, Dental examination Z01.20 [facility] [id number] [place] [address] September, [facility] [address] [facility] [place] [id number] September, Decay, teeth K02.9 and Dental examinatio n Z01.20 [facility] [address] [facility] [place] [id number] September, Dental examination Z01.20 [address] [address] September, FRANCIS (generalized anxiety disorder) F41.1 ; Major depressive disorder in partial remission F32.4 and Restless leg syndrome G25.81 [place] [address] [address] Aug, [place] [address] [address] Jul, [address] [address] Jul, Encounter to discuss test results Z71.[address] [address] Jul, Pelvic pain R10.2 ; Screening for breast cancer Z12.31 and Obesity (BMI 30.0-34.9) E66.[address] [address] Jul, Mild intermittent asthma without complic ation J45.20 [place] [address] [address] Jul, Major depressive disorder in partial rem ission F32.4 and FRANCIS (generalized anxiety disorder) F41.[address] [address] Jul, [place] [address] [address] Jun, [address] [address] May, Major depressive disorder in partial rem ission F32.4 ; FRANCIS (generalized anxiety disorder) F41.1 and Restless leg syndrome G25.81 [facility] [id number] [place] [address] Apr, [facility] [id number] [place] [address] Mar, [facility] [address] [facility] [id number] [address] [place] [address] Jan, Pain in thoracic spine M54.6 and Other chronic pain G89.29 [facility] [address] [address] Jan, [facility] [address] [address] 11 Jan, 2018 Mild episode of recurrent major depressi ve disorder F33.0 ; FRANCIS (generalized anxiety disorder) F41.1 and Restless leg syndrome G25.81 [facility] [id number] [place] [address] Dec, [facility] [address] [address] Dec, Hospital discharge follow-up Z09 [facility] [address] [address] Nov, [facility] [address] [address] Nov, [facility] [address] [address] September, [facility] [address] [address] September, [facility] [address] [address] September, Major depressive disorder in partial rem ission F32.4 ; FRANCIS (generalized anxiety disorder) F41.1 and Restless leg syndrome G25.81 [facility] [id number] [place] [address] September, [facility] [id number] [place] [address] Jul, [facility] [address] [address] Jul, Dorsalgia, unspecified M54.9 [facility] [address] [address] Jul, Mild episode of recurrent major depressi ve disorder F33.0 and FRANCIS (generalized anxiety disorder) F41.1 [facility] [id number] [place] [address] May, [facility] [address] [facility] [id number] [address] [place] [address] May, Dysuria R30.0 and Acute cyst itis with hematuria N30.01 [place] [address] [address] Apr, [facility] [address] [address] Apr, Major depressive disorder in partial rem ission F32.4 and FRANCIS (generalized anxiety disorder) F41.1 [place] [id number] [place] [address] Mar, Paroxysmal tachycardia I47.9 [place] [address] [address] Mar, Paroxysmal tachycardia I47.9 and Pain of left lower extremity M79.605 [place] [address] [address] Mar, FRANCIS (generalized anxiety disorder) F41.1 and Major depressive disorder in partial remission F32.4 [place] [address] [address] Jan, [facility] [address] [address] 14 Jan, 2017 [place] [address] [address] Jan, [facility] [address] [id number] [place] [address] Dec, Constipation, unspecified co nstipation type K59.00 [facility] [address] [address] Dec, [place] [address] [address] Nov, [place] [address] [address] Nov, Major depressive disorder in partial rem ission F32.4 and FRANCIS (generalized anxiety disorder) F41.1 [facility] [address] [id number] [place] [address] Oct, Abdominal pain R10.9 and Slo w transit constipation K59.01 [place] [address] [address] Aug, Major depressive disorder in partial rem ission F32.4 ; FRANCIS (generalized anxiety disorder) F41.1 ; Conversion disorder (or hysterical neurosis, conversion type) F44.9 ; Dorsalgia, unspecified M54.9 and Long-term use of high-risk medication Z79.899 [place] [address] [address] Aug, [place] [address] [address] Jul, Paroxysmal tachycardia I47.9 [place] [address] [address] Jul, Paroxysmal tachycardia I47.9 [place] [address] [address] Jun, [place] [address] [address] Jun, Major depressive disorder in partial rem ission F32.4 ; FRANCIS (generalized anxiety disorder) F41.1 and Conversion disorder (or hysterical neurosis, conversion type) F44.9 [facility] [id number] [place] [address] May, Pelvic pain R10.2 [facility] [id number] [place] [address] Apr, Gastroenteritis K52.9 [facility] [address] [address] Apr, Blood in urine R31.9 and Acu te cystitis with hematuria N30.01 [place] [address] [address] Apr, Major depressive disorder in partial rem ission F32.4 ; FRANCIS (generalized anxiety disorder) F41.1 and Conversion disorder (or hysterical neurosis, conversion type) F44.9 [place] [address] [address] Apr, [place] [address] [address] Apr, Abnormal mammogram R92.8 [place] [address] [address] Mar, [place] [address] [address] Mar, Gastroenteritis K52.9 and Seizure disord er G40.909 [place] [address] [address] Dec, [facility] [address] [address] Dec, Other headache syndrome G44. 89 [facility] [address] [address] Dec, [place] [address] [address] 19 Aug, 2016 Thoracic disc herniation M51.24 [facility] [id number] [place] [address] Dec, [facility] [address] [address] Nov, Major depressive disorder in partial rem ission F32.4 and FRANCIS (generalized anxiety disorder) F41.1 [facility] [address] [address] Nov, [facility] [address] [address] Nov, Dorsalgia, unspecified M54.9 [facility] [address] [address] Oct, [facility] [address] [address] September, [facility] [address] [address] Aug, [facility] [address] [address] Aug, Major depressive disorder in partial rem ission F32.4 and FRANCIS (generalized anxiety disorder) F41.1 [facility] [address] [address] Aug, [facility] [address] [address] Jul, Abnormal mammogram R92.8 [facility] [id number] [place] [address] Jul, [facility] [id number] [place] [address] Jul, [facility] [address] [address] 14 Jul, 2015 [facility] [address] [address] Jul, [facility] [address] [address] Jul, [facility] [address] [address] Jul, [facility] [address] [address] Jun, Major depressive disorder in partial rem ission F32.4 and FRANCIS (generalized anxiety disorder) F41.1 [facility] [address] [address] Jun, [facility] [address] [address] May, [facility] [address] [address] Apr, [facility] [address] [address] Mar, Major depressive disorder, recurrent epi sode, moderate F33.1 ; PTSD (post-traumatic stress disorder) F43.10 and FRANCIS (generalized anxiety disorder) F41.1 [facility] [address] [address] Mar, [facility] [address] [address] Mar, [facility] [address] [address] Mar, [facility] [address] [address] Mar, [facility] [address] [address] 23 Jan, 2015 [facility] [address] [address] 15 Jan, 2015 [facility] [address] [address] 15 Jan, 2015 [facility] [address] [address] Jan, Thoracic disc herniation 722.11 [facility] [id number] [place] [address] Dec, [facility] [id number] [place] [address] Dec, [facility] [id number] [place] [address] Dec, [facility] [id number] [place] [address] Nov, [facility] [id number] [place] [address] Nov, Generalized anxiety disorder 300.02 ; Po sttraumatic stress disorder 309.81 and Major depressive disorder, recurrent episode, moderate 296.32 [facility] [id number] [place] [address] Nov, [facility] [id number] [place] [address] Nov, [facility] [id number] [place] [address] Oct, [facility] [id number] [place] [address] Oct, [facility] [id number] [place] [address] Oct, [facility] [id number] [place] [address] September, [facility] [id number] [place] [address] September, [facility] [id number] [place] [address] Aug, [facility] [id number] [place] [address] Aug, [facility] [id number] [place] [address] Jul, [facility] [id number] [place] [address] Jul, [facility] [address] [facility] [id number] [place] [address] Jul, [facility] [address] [facility] [id number] [place] [address] Jul, [facility] [address] [id number] [place] [address] 16 Jul, 2014 [facility] [address] [id number] [place] [address] Jul, [facility] [address] [facility] [id number] [place] [address] Jul, [facility] [address] [id number] [place] [address] Jul, [facility] [address] [id number] [place] [address] Jul, [facility] [address] [id number] [place] [address] Jul, [facility] [address] [id number] [place] [address] Jun, [facility] [address] [id number] [place] [address] Jun, [facility] [address] [id number] [place] [address] Jun, [facility] [address] [id number] [place] [address] May, [facility] [address] [facility] [id number] [place] [address] Apr, [facility] [address] [id number] [place] [address] Apr, [facility] [address] [id number] [place] [address] Apr, [facility] [address] [id number] [place] [address] Apr, [facility] [address] [id number] [place] [address] Apr, [facility] [address] [id number] [place] [address] Apr, [facility] [address] [id number] [place] [address] Apr, [facility] [address] [id number] [place] [address] Apr, [facility] [address] [id number] [place] [address] Mar, [facility] [address] [id number] [place] [address] 24 Mar, 2014 [facility] [address] [id number] [place] [address] 24 Mar, 2014 [facility] [address] [id number] [place] [address] 24 Mar, 2014 [facility] [address] [id number] [place] [address] 24 Mar, 2014 [facility] [address] [id number] [place] [address] 24 Mar, 2014 [facility] [address] [id number] [place] [address] 24 Mar, 2014 [facility] [address] [id number] [place] [address] Mar, [facility] [address] [id number] [place] [address] 23 Mar, 2014 [facility] [address] [id number] [place] [address] Mar, [facility] [address] [id number] [place] [address] 17 Mar, 2014 [facility] [address] [id number] [place] [address] 14 Mar, 2014 [facility] [address] [id number] [place] [address] 14 Mar, 2013 [facility] [address] [id number] [place] [address] 07 Mar, 2013 [facility] [address] [id number] [place] [address] 07 Mar, 2013 [facility] [address] [id number] [place] [address] 06 Mar, 2013 [facility] [address] [id number] [place] [address] 06 Oct, 2013 [facility] [address] [id number] [place] [address] 19 Sep, 2013 [facility] [address] [id number] [place] [address] 19 Sep, 2013 [facility] [address] [id number] [place] [address] 09 Sep, 2013 [facility] [address] [id number] [place] [address] 09 Sep, 2013 [facility] [address] [id number] [place] [address] 05 Sep, 2013 [facility] [address] [id number] [place] [address] 05 Sep, 2013 [facility] [address] [id number] [place] [address] 05 Sep, 2013 [facility] [address] [id number] [place] [address] 05 Sep, 2013 [facility] [address] [id number] [place] [address] 03 Sep, 2013 [facility] [address] [id number] [place] [address] 02 Sep, 2013 [facility] [address] [id number] [place] [address] 02 Sep, 2013 [facility] [address] [id number] [place] [address] 02 Sep, 2013 [facility] [address] [id number] [place] [address] Jan, [facility] [address] [id number] [place] [address] Dec, [facility] [address] [facility] [id number] [place] [address] Dec, [facility] [address] [id number] [place] [address] Dec, [facility] [address] [id number] [place] [address] Dec, [facility] [address] [id number] [place] [address] Dec, [facility] [address] [id number] [place] [address] Dec, [facility] [address] [facility] [id number] Dec, [facility] [address] [facility] [id number] Dec, [facility] [address] [id number] [place] [address] Dec, [facility] [address] [id number] [place] [address] Dec, [facility] [address] [id number] [place] [address] Dec, [facility] [place] [facility] [address] [id number] [place] [address] Dec, [facility] [place] [facility] [address] [id number] [place] [address] Nov, [facility] [place] [facility] [address] [id number] [place] [address] Nov, [facility] [place] [facility] [address] [id number] [place] [address] Nov, [facility] [place] [facility] [address] [id number] [place] [address] Nov, [facility] [place] [facility] [address] [id number] [place] [address] Nov, [facility] [place] [facility] [address] [facility] [id number] [place] [address] Nov, [facility] [place] [facility] [address] [facility] [id number] [place] [address] Nov, [facility] [place] [facility] [address] [facility] [id number] [place] [address] Nov, [facility] [place] [facility] [address] [facility] [id number] [place] [address] Nov, [facility] [place] [facility] [address] [facility] [id number] [place] [address] Nov, [facility] [place] [facility] [address] [facility] [id number] [place] [address] Nov, [facility] [place] [facility] [address] [id number] [place] [address] Nov, [facility] [place] [facility] [address] [id number] [place] [address] Nov, [facility] [place] [facility] [address] [facility] [id number] [place] [address] Oct, [facility] [place] [facility] [address] [id number] [place] [address] Oct, [facility] [place] [facility] [address] [id number] [place] [address] Oct, [facility] [place] [facility] [address] [id number] [place] [address] Oct, [facility] [place] [facility] [address] [facility] [id number] [place] [address] Oct, [facility] [place] [facility] [address] [id number] [place] [address] Oct, [facility] [place] [facility] [address] [facility] [id number] [place] [address] Oct, [facility] [place] [facility] [address] [id number] [place] [address] Oct, [facility] [place] [facility] [address] [facility] [id number] [place] [address] Oct, [facility] [place] [facility] [address] [facility] [id number] [place] [address] Oct, [facility] [place] [facility] [address] [id number] [place] [address] Oct, [facility] [place] [facility] [address] [id number] [place] [address] Oct, [facility] [place] [facility] [address] [facility] [id number] [place] [address] September, [facility] [place] [facility] [address] [facility] [id number] [place] [address] September, [facility] [place] [facility] [address] [id number] [place] [address] September, [facility] [place] [facility] [address] [id number] [place] [address] September, [facility] [place] [facility] [address] [id number] [place] [address] Aug, [facility] [place] [facility] [address] [id number] [place] [id number] Aug, [facility] [address] [id number] [place] [address] Aug, [facility] [address] [id number] [place] [address] Aug, [facility] [address] [id number] [place] [address] Aug, [facility] [address] [facility] [id number] [place] [address] Aug, [facility] [address] [id number] [place] [address] Aug, [facility] [address] [id number] [place] [address] Jul, [facility] [address] [id number] [place] [address] Jul, [facility] [address] [facility] [id number] [place] [address] Jul, [facility] [address] [facility] [id number] [facility] [address] Jul, [facility] [address] [id number] [place] [address] Jul, [facility] [address] [id number] [place] [address] 19 Jul, 2013 [facility] [address] [facility] [id number] [place] [address] Jul, [facility] [address] [id number] [place] [address] Jul, [facility] [address] [id number] [place] [address] 18 Jul, 2013 [facility] [address] [id number] [place] [address] 18 Jul, 2013 [facility] [address] [id number] [place] [address] 18 Jul, 2013 [facility] [address] [id number] [place] [address] 18 Jul, 2013 [facility] [address] [id number] [place] [address] 14 Jul, 2013 [facility] [address] [id number] [place] [address] 14 Jul, 2013 [facility] [address] [id number] [place] [address] 11 Jul, 2013 [facility] [address] [id number] [place] [address] Jul, [facility] [address] [id number] [place] [address] 11 Jul, 2013 [facility] [address] [id number] [place] [address] Jul, [facility] [address] [id number] [place] [address] 31 Jun, 2013 [facility] [address] [id number] [place] [address] 31 Jun, 2013 [facility] [address] [id number] [place] [address] 15 Jun, 2013 [facility] [address] [id number] [place] [address] 15 Jun, 2013 [facility] [address] [id number] [place] [address] 14 Jun, 2013 [facility] [address] [id number] [place] [address] 14 Jun, 2013 [facility] [address] [id number] [place] [address] 14 Jun, 2013 [facility] [address] [id number] [place] [address] 14 Jun, 2013 [facility] [address] [id number] [place] [address] 14 Jun, 2013 [facility] [address] [id number] [place] [address] 14 Jun, 2013 [facility] [address] [id number] [place] [address] 27 May, 2013 [facility] [address] [id number] [place] [address] 27 May, 2013 [facility] [address] [id number] [place] [address] 26 May, 2013 [facility] [address] [id number] [place] [address] 19 May, 2013 [facility] [address] [id number] [place] [address] 19 May, 2013 [facility] [address] [id number] [place] [address] 16 May, 2013 [facility] [address] [id number] [place] [address] 16 May, 2013 [facility] [address] [id number] [place] [address] 16 May, 2012 [facility] [address] [id number] [place] [address] 16 May, 2012 [facility] [address] [id number] [place] [address] 13 May, 2013 [facility] [address] [id number] [place] [address] 13 May, 2013 [facility] [address] [id number] [place] [address] 11 May, 2013 [facility] [address] [id number] [place] [address] 20 Apr, 2013 [facility] [address] [id number] [place] [address] 18 Apr, 2013 [facility] [address] [id number] [place] [address] 18 Apr, 2013 [facility] [address] [id number] [place] [address] 13 Apr, 2013 [facility] [address] [id number] [place] [address] 13 Apr, 2013 [facility] [address] [id number] [place] [address] 08 Apr, 2013 [facility] [address] [id number] [place] [address] 08 Apr, 2013 [facility] [address] [id number] [place] [address] 07 Apr, 2013 [facility] [address] [id number] [place] [address] 07 Apr, 2013 [facility] [address] [id number] [place] [address] 07 Apr, 2013 [facility] [address] [id number] [place] [address] 07 Apr, 2012 [facility] [address] [id number] [place] [address] Mar, [facility] [address] [facility] [id number] [place] [address] Mar, [facility] [address] [facility] [id number] [place] [address] Mar, [facility] [address] [id number] [place] [address] Mar, [facility] [address] [id number] [place] [address] Mar, [facility] [address] [facility] [id number] [place] [address] Mar, [facility] [address] [id number] [place] [address] Mar, [facility] [address] [id number] [place] [address] Mar, [facility] [address] [id number] [place] [address] Mar, [facility] [address] [id number] [place] [address] Mar, [facility] [address] [id number] [place] [address] Mar, [facility] [address] [id number] [place] [address] Mar, [facility] [address] [id number] [place] [address] 30 Jan, 2012 [facility] [address] [facility] [id number] [place] [address] 25 Jan, 2012 [facility] [address] [id number] [place] [address] 20 Jan, 2012 [facility] [address] [id number] [place] [address] 10 Jan, 2012 [facility] [address] [id number] [place] [address] Dec, [facility] [address] [id number] [place] [address] Dec, [facility] [address] [facility] [id number] [place] [address] Dec, [facility] [address] [facility] [id number] [place] [address] Dec, [facility] [address] [id number] [place] [address] Dec, [facility] [address] [facility] [id number] [place] [address] Dec, [facility] [address] [facility] [id number] [place] [address] Dec, [facility] [address] [id number] [place] [address] Dec, [facility] [address] [id number] [place] [address] Dec, [facility] [address] [id number] [place] [address] Nov, [facility] [address] [id number] [place] [address] Nov, [facility] [address] [id number] [place] [address] Nov, [facility] [address] [id number] [place] [address] Nov, [facility] [address] [id number] [place] [address] Nov, [facility] [address] [facility] [id number] [place] [address] Nov, [facility] [address] [id number] [place] [address] Nov, [facility] [address] [id number] [place] [address] Nov, [facility] [address] [id number] [place] [address] Oct, [facility] [address] [facility] [id number] [place] [address] Oct, [facility] [address] [id number] [place] [address] Oct, [facility] [address] [id number] [place] [address] Oct, [facility] [address] [id number] [place] [address] Oct, [facility] [address] [facility] [id number] [place] [address] Oct, [facility] [address] [id number] [place] [address] Oct, [facility] [address] [id number] [place] [address] Oct, [facility] [address] [id number] [place] [address] Oct, [facility] [address] [id number] [place] [address] 18 Oct, 2012 [facility] [address] [id number] [place] [address] 17 Oct, 2012 [facility] [address] [id number] [place] [address] 14 Oct, 2012 [facility] [address] [id number] [place] [address] 07 Oct, 2012 [facility] [address] [id number] [place] [address] September, [facility] [address] [id number] [place] [address] September, [facility] [address] [id number] [place] [address] September, [facility] [address] [id number] [place] [address] Aug, [facility] [address] [id number] [place] [address] 24 Aug, 2012 [facility] [address] [facility] [id number] [place] [address] Aug, [facility] [address] [facility] [id number] [place] [address] Aug, [facility] [address] [id number] [place] [address] Aug, [facility] [address] [id number] [place] [address] 08 Aug, 2012 [facility] [address] [facility] [id number] [place] [address] 05 Aug, 2012 [facility] [address] [id number] [place] [address] Jul, [facility] [address] [id number] [place] [address] Jul, [facility] [address] [id number] [place] [address] Jul, [facility] [address] [id number] [place] [address] Jul, [facility] [address] [id number] [place] [address] Jul, [facility] [address] [id number] [place] [address] Jul, [facility] [address] [id number] [place] [address] Jul, [facility] [address] [id number] [place] [address] Jul, [facility] [address] [id number] [place] [address] Jul, [facility] [address] [id number] [place] [address] Jul, [facility] [address] [id number] [place] [address] Jul, [facility] [address] [id number] [place] [address] Jul, [facility] [address] [id number] [place] [address] Jul, [facility] [address] [id number] [place] [address] 24 Jun, 2012 [facility] [address] [id number] [place] [address] Jun, [facility] [address] [id number] [place] [address] Jun, [facility] [address] [id number] [place] [address] 17 Jun, 2012 [facility] [address] [id number] [place] [address] 15 Jun, 2012 [facility] [address] [id number] [place] [address] 14 Jun, 2012 [facility] [address] [id number] [place] [address] 08 Jun, 2012 [facility] [address] [id number] [place] [address] May[facility] [address] [id number] [place] [address] May, [facility] [address] [id number] [place] [address] May, [facility] [address] [id number] [place] [address] May, [facility] [address] [id number] [place] [address] May, [facility] [address] [id number] [place] [address] 24 May, 2012 [facility] [address] [id number] [place] [address] May, [facility] [address] [id number] [place] [address] May, [facility] [address] [id number] [place] [address] May, [facility] [address] [id number] [place] [address] May, [facility] [address] [id number] [place] [address] Apr, [facility] [address] [id number] [place] [address] Apr, [facility] [address] [id number] [place] [address] Apr, [facility] [address] [id number] [place] [address] Apr, [facility] [address] [id number] [place] [address] Apr, [facility] [address] [id number] [place] [address] Apr, [facility] [address] [id number] [place] [address] Apr, [facility] [address] [id number] [place] [address] Apr, [facility] [address] [id number] [place] [address] Apr, [facility] [address] [id number] [place] [address] Apr, [facility] [address] [id number] [place] [address] Apr, [facility] [address] [id number] [place] [address] Apr, [facility] [address] [id number] [place] [address] Mar, [facility] [address] [id number] [place] [address] Mar, [facility] [address] [id number] [place] [address] 30 Mar, 2011 [facility] [address] [id number] [place] [address] Mar, 2011 [facility] [address] [id number] [place] [address] Mar, 2011 [facility] [address] [id number] [place] [address] Mar, 2011 [facility] [address] [id number] [place] [address] Mar, 2011 [facility] [address] [id number] [place] [address] Mar, 2011 [facility] [address] [id number] [place] [address] Mar, 2011 [facility] [address] [id number] [place] [address] Mar, 2011 [facility] [address] [id number] [place] [address] Mar, 2011 [facility] [address] [id number] [place] [address] Mar, [facility] [address] [id number] [place] [address] Mar, [facility] [address] [id number] [place] [address] Mar, [facility] [address] [id number] [place] [address] Mar, [facility] [address] [id number] [place] [address] Mar, [facility] [address] [id number] [place] [address] 25 Jan, 2011 [facility] [address] [id number] [place] [address] 24 Sep, 2011 [facility] [address] [id number] [place] [address] 22 Jan, 2011 [facility] [address] [id number] [place] [address] 22 Jan, 2011 [facility] [address] [id number] [place] [address] 21 Jan, 2011 [facility] [address] [id number] [place] [address] 18 Jan, 2011 [facility] [address] [id number] [place] [address] 14 Jan, 2011 [facility] [address] [id number] [place] [address] 07 Jan, 2012 [facility] [address] [id number] [place] [address] 15 Dec, 2011 [facility] [address] [id number] [place] [address] 10 Dec, 2011 [facility] [address] [id number] [place] [address] Dec, [facility] [address] [id number] [place] [address] Dec, [facility] [address] [id number] [place] [address] Dec, [facility] [address] [id number] [place] [address] Dec, [facility] [address] [id number] [place] [address] Dec, [facility] [address] [id number] [place] [address] Nov, [facility] [address] [id number] [place] [address] Oct, [facility] [address] [id number] [place] [address] Aug, [facility] [address] [id number] [place] [address] Jul, [facility] [address] [id number] [place] [address] 19 Jul, 2011 [facility] [address] [facility] [id number] [place] [address] 16 Jul, 2011 [facility] [address] [facility] [id number] [place] [address] 14 Jul, 2011 [facility] [address] [id number] [place] [address] 07 Jul, 2011 [facility] [address] [id number] [place] [address] 02 Jul, 2011 [facility] [address] [facility] [id number] [place] [address] Jul, [facility] [address] [id number] [place] [address] 15 Jul, 2011 [facility] [address] [id number] [place] [address] 13 Jul, 2011 [facility] [address] [id number] [place] [address] Jul, [facility] [address] [id number] [place] [address] Jul, [facility] [address] [id number] [place] [address] Jun, [facility] [address] [id number] [place] [address] Jun, [facility] [address] [id number] [place] [address] Jun, [facility] [address] [facility] [id number] [place] [address] Jun, [facility] [address] [id number] [place] [address] Jun, [facility] [address] [id number] [place] [address] Jun, [facility] [address] [id number] [place] [address] Jun, [facility] [address] [id number] [place] [address] May, [facility] [address] [id number] [place] [address] May, [facility] [address] [id number] [place] [address] May, [facility] [address] [id number] [place] [address] May, [facility] [address] [id number] [place] [address] 14 May, 2011 [facility] [address] [id number] [place] [address] May, [facility] [address] [id number] [place] [address] May, [facility] [id number] [place] [address] May, [facility] [address] [id number] [place] [address] May, [facility] [address] [id number] [place] [address] May, [facility] [address] [id number] [place] [address] 15 Apr, 2011 [facility] [address] [id number] [place] [address] 15 Apr, 2011 [facility] [address] [id number] [place] [address] Apr, [facility] [address] [id number] [place] [address] Apr, [facility] [id number] [place] [address] Mar, [facility] [address] [id number] [place] [address] 24 Mar, 2011 [facility] [address] [id number] [place] [address] Mar, [facility] [address] [facility] [id number] [place] [address] Mar, IMMUNIZATIONS No Known Immunizations SOCIAL HISTORY [...]
--- OUTSIDE RECORDS SUMMARY | 2020-01-03 18:21 | XMS REPORT ---
Author Author Pattie MAST Organization [facility] Address [address] [place] [address] Care Team Providers Care Supervisor Stripping Name Role Phone SABIHA MAST Unavailable PROBLEMS Type Condition ICD9-CM Code [id number] Code Onset Dates Condition S tatus SNOMED Code Problem FRANCIS (generalized anxiety disorder) F41.1 Active 06588557 Problem Thoracic disc herniation M51.24 Activ e 701397179 Problem Major depressive disorder in partial remission F32 .4 Active 79391616 Problem Paroxysmal tachycardia I47.9 Active 65937798 Problem Slow transit constipation K59.01 Acti ve 39002159 Problem Constipation, unspecified constipation type K59.00 Active 87088813 Problem Obesity (BMI 30.0-34.9) E66.9 Active [id number] Problem Seizure disorder G40.909 Active 128 523116 Problem High blood pressure I10 Active 94703460 Problem Conversion disorder (or hysterical neurosis, conversion ty pe) F44.9 Active 74457576 Problem Mild episode of recurrent major depressive disorder F33.0 Active 124415494 Problem Restless leg syndrome G25.81 Active 34638927 Problem Other chronic pain G89.29 Active 8 1611488 Problem Mild intermittent asthma without complication J45. 20 Active 139246092 ALLERGIES No Information ENCOUNTERS Encounter Location Date Diagnosis [facility] [address] [address] 27 Jul, 2019 Major depressive disorder in partial rem ission F32.4 ; FRANCIS (generalized anxiety disorder) F41.1 ; Restless leg syndrome G25.81 and High blood pressure I10 [facility] [address] [address] 17 Jul, 2019 [facility] [address] [address] Jul, [facility] [id number] [place] [address] Jun, [facility] [address] [address] May, [facility] [address] [address] Apr, [facility] [address] [address] Apr, [facility] [address] [address] Mar, [facility] [address] [address] Mar, Major depressive disorder in partial rem ission F32.4 ; FRANCIS (generalized anxiety disorder) F41.1 and Restless leg syndrome G25.81 [facility] [address] [address] Mar, Obesity (BMI 30.0-34.9) E66.9 [facility] [id number] [place] [address] Jan, [facility] [address] [facility] [id number] [address] [place] [address] Jan, Burn T30.0 [facility] [address] [id number] [place] [address] Dec, [facility] [address] [address] Nov, [facility] [id number] [place] [address] Nov, [facility] [address] [id number] [place] [id number] Nov, Dental examination Z01.20 [facility] [id number] [place] [address] September, [facility] [address] [id number] [place] [id number] September, Decay, teeth K02.9 and Dental examinatio n Z01.20 [facility] [address] [id number] [place] [id number] September, Dental examination Z01.20 [facility] [id number] [place] [address] September, FRANCIS (generalized anxiety disorder) F41.1 ; Major depressive disorder in partial remission F32.4 and Restless leg syndrome G25.81 [facility] [address] [address] Aug, [facility] [address] [address] Jul, [place] [address] [address] Jul, Encounter to discuss test results Z71.2 [place] [address] [address] Jul, Pelvic pain R10.2 ; Screening for breast cancer Z12.31 and Obesity (BMI 30.0-34.9) E66.9 [facility] [address] [address] Jul, Mild intermittent asthma without complic ation J45.20 [place] [address] [address] Jul, Major depressive disorder in partial rem ission F32.4 and FRANCIS (generalized anxiety disorder) F41.1 [facility] [address] [address] Jul, [facility] [address] [address] Jun, [place] [address] [address] May, Major depressive disorder in partial rem ission F32.4 ; FRANCIS (generalized anxiety disorder) F41.1 and Restless leg syndrome G25.81 [place] [id number] [place] [address] Apr, [facility] [id number] [place] [address] Mar, [facility] [address] [facility] [id number] [address] [place] [address] 21 Jan, 2018 Pain in thoracic spine M54.6 and Other chronic pain G89.29 [facility] [address] [address] 14 Jan, 2018 [facility] [address] [address] 11 Jan, 2018 Mild episode of recurrent major depressi ve disorder F33.0 ; FRANCIS (generalized anxiety disorder) F41.1 and Restless leg syndrome G25.81 [facility] [address] [address] Dec, [facility] [address] [address] Dec, Hospital discharge follow-up Z09 [facility] [address] [address] Nov, [facility] [address] [address] Nov, [facility] [address] [address] September, [facility] [address] [address] September, [facility] [address] [address] September, Major depressive disorder in partial rem ission F32.4 ; FRANCIS (generalized anxiety disorder) F41.1 and Restless leg syndrome G25.81 [facility] [id number] [place] [address] September, [facility] [address] [address] Jul, [place] [address] [address] Jul, Dorsalgia, unspecified M54.9 [place] [address] [address] Jul, Mild episode of recurrent major depressi ve disorder F33.0 and FRANCIS (generalized anxiety disorder) F41.1 [place] [address] [address] May, [facility] [address] [place] [id number] [place] [address] May, Dysuria R30.0 and Acute cyst itis with hematuria N30.01 [place] [address] [address] Apr, [place] [address] [address] Apr, Major depressive disorder in partial rem ission F32.4 and FRANCIS (generalized anxiety disorder) F41.1 [place] [address] [address] Mar, Paroxysmal tachycardia I47.9 [place] [address] [address] Mar, Paroxysmal tachycardia I47.9 and Pain of left lower extremity M79.605 [place] [address] [address] Mar, FRANCIS (generalized anxiety disorder) F41.1 and Major depressive disorder in partial remission F32.4 [place] [address] [address] Jan, [place] [address] [address] 14 Jan, 2017 [place] [address] [address] 13 Jan, 2017 [facility] [address] [place] [id number] [place] [address] Dec, Constipation, unspecified co nstipation type K59.00 [place] [address] [address] Dec, [place] [address] [address] Nov, [place] [address] [address] Nov, Major depressive disorder in partial rem ission F32.4 and FRANCIS (generalized anxiety disorder) F41.1 [facility] [address] [address] Oct, Abdominal pain R10.9 and Slo w transit constipation K59.01 [place] [address] [address] Aug, Major depressive disorder in partial rem ission F32.4 ; FRANCIS (generalized anxiety disorder) F41.1 ; Conversion disorder (or hysterical neurosis, conversion type) F44.9 ; Dorsalgia, unspecified M54.9 and Long-term use of high-risk medication Z79.899 [place] [address] [address] Aug, [place] [address] [address] Jul, Paroxysmal tachycardia I47.9 [place] [address] [address] Jul, Paroxysmal tachycardia I47.9 [place] [address] [address] Jun, [place] [address] [address] Jun, Major depressive disorder in partial rem ission F32.4 ; FRANCIS (generalized anxiety disorder) F41.1 and Conversion disorder (or hysterical neurosis, conversion type) F44.9 [facility] [address] [place] [address] [place] [address] May, Pelvic pain R10.2 [facility] [address] [address] Apr, Gastroenteritis K52.9 [facility] [address] [place] [id number] [place] [address] Apr, Blood in urine R31.9 and Acu te cystitis with hematuria N30.01 [facility] [address] [address] Apr, Major depressive disorder in partial rem ission F32.4 ; FRANCIS (generalized anxiety disorder) F41.1 and Conversion disorder (or hysterical neurosis, conversion type) F44.9 [place] [address] [address] Apr, [place] [address] [address] Apr, Abnormal mammogram R92.8 [place] [address] [address] Mar, [place] [address] [address] Mar, Gastroenteritis K52.9 and Seizure disord er G40.909 [place] [address] [address] Dec, [facility] [id number] [place] [address] Dec, Other headache syndrome G44. 89 [place] [address] [address] Dec, [place] [address] [address] Dec, Thoracic disc herniation M51.24 [place] [address] [address] Dec, [place] [id number] [place] [address] Nov, Major depressive disorder in partial rem ission F32.4 and FRANCIS (generalized anxiety disorder) F41.1 [facility] [id number] [place] [address] Nov, [facility] [id number] [place] [address] Nov, Dorsalgia, unspecified M54.9 [facility] [id number] [place] [address] Oct, [facility] [address] [address] September, [facility] [id number] [place] [address] Aug, [facility] [address] [address] Aug, Major depressive disorder in partial rem ission F32.4 and FRANCIS (generalized anxiety disorder) F41.1 [facility] [id number] [place] [address] Aug, [facility] [address] [address] Jul, Abnormal mammogram R92.8 [facility] [id number] [place] [address] Jul, [facility] [id number] [place] [address] Jul, [facility] [id number] [place] [address] Jul, [facility] [id number] [place] [address] Jul, [facility] [id number] [place] [address] Jul, [facility] [address] [address] Jul, [facility] [address] [address] Jun, Major depressive disorder in partial rem ission F32.4 and FRANCIS (generalized anxiety disorder) F41.1 [facility] [address] [address] Jun, [facility] [address] [address] May, [facility] [address] [address] Apr, [facility] [address] [address] Mar, Major depressive disorder, recurrent epi sode, moderate F33.1 ; PTSD (post-traumatic stress disorder) F43.10 and FRANCIS (generalized anxiety disorder) F41.1 [facility] [address] [address] Mar, [facility] [address] [address] Mar, [facility] [address] [address] Mar, [facility] [address] [address] Mar, [facility] [address] [address] 23 Jan, 2015 [facility] [address] [address] 15 Jan, 2015 [facility] [address] [address] 15 Jan, 2015 [facility] [address] [address] 14 Jan, 2015 Thoracic disc herniation 722.11 [facility] [address] [address] Dec, [facility] [id number] [place] [address] Dec, [facility] [id number] [place] [address] Dec, [facility] [id number] [place] [address] Nov, [facility] [id number] [place] [address] Nov, Generalized anxiety disorder 300.02 ; Po sttraumatic stress disorder 309.81 and Major depressive disorder, recurrent episode, moderate 296.32 [facility] [id number] [place] [address] Nov, [facility] [id number] [place] [address] Nov, [facility] [id number] [place] [address] Oct, [facility] [id number] [place] [address] Oct, [facility] [id number] [place] [address] Oct, [facility] [id number] [place] [address] September, [facility] [id number] [place] [address] September, [facility] [id number] [place] [address] Aug, [facility] [id number] [place] [address] Aug, [facility] [id number] [place] [address] Jul, [facility] [id number] [place] [address] Jul, [facility] [id number] [place] [address] Jul, [facility] [address] [id number] [place] [address] 17 Jul, 2014 [facility] [address] [id number] [place] [address] 16 Jul, 2014 [facility] [address] [id number] [place] [address] 16 Jul, 2014 [facility] [address] [id number] [place] [address] Jul, [facility] [address] [facility] [id number] [place] [address] Jul, [facility] [address] [id number] [place] [address] Jul, [facility] [address] [id number] [place] [address] Jul, [facility] [address] [id number] [place] [address] Jun, [facility] [address] [id number] [place] [address] Jun, [facility] [address] [id number] [place] [address] Jun, [facility] [address] [id number] [place] [address] May, [facility] [address] [id number] [place] [address] Apr, [facility] [address] [id number] [place] [address] Apr, [facility] [address] [id number] [place] [address] Apr, [facility] [address] [id number] [place] [address] Apr, [facility] [address] [id number] [place] [address] Apr, [facility] [address] [id number] [place] [address] 07 Apr, 2014 [facility] [address] [facility] [id number] [place] [address] Apr, [facility] [address] [id number] [place] [address] Apr, [facility] [address] [id number] [place] [address] Mar, [facility] [address] [id number] [place] [address] Mar, [facility] [address] [id number] [place] [address] Mar, [facility] [address] [id number] [place] [address] Mar, [facility] [address] [id number] [place] [address] Mar, [facility] [address] [id number] [place] [address] Mar, [facility] [address] [id number] [place] [address] Mar, [facility] [address] [id number] [place] [address] Mar, [facility] [address] [id number] [place] [address] Mar, [facility] [address] [id number] [place] [address] Mar, [facility] [address] [id number] [place] [address] 17 Mar, 2014 [facility] [address] [id number] [place] [address] 14 Mar, 2014 [facility] [address] [id number] [place] [address] 14 Mar, 2014 [facility] [address] [id number] [place] [address] Mar, 2013 [facility] [address] [id number] [place] [address] Mar, 2013 [facility] [address] [id number] [place] [address] Mar, 2013 [facility] [address] [id number] [place] [address] Mar, 2013 [facility] [address] [id number] [place] [address] 19 Sep, 2013 [facility] [address] [id number] [place] [address] 19 Sep, 2013 [facility] [address] [id number] [place] [address] 09 Sep, 2013 [facility] [address] [id number] [place] [address] 09 Sep, 2013 [facility] [address] [id number] [place] [address] 05 Sep, 2013 [facility] [address] [id number] [place] [address] 05 Sep, 2013 [facility] [address] [id number] [place] [address] 05 Sep, 2013 [facility] [address] [id number] [place] [address] 05 Sep, 2013 [facility] [address] [id number] [place] [address] 03 Sep, 2013 [facility] [address] [id number] [place] [address] 02 Sep, 2013 [facility] [address] [id number] [place] [address] 02 Sep, 2013 [facility] [address] [id number] [place] [address] 02 Sep, 2013 [facility] [address] [id number] [place] [address] 02 Sep, 2013 [facility] [address] [id number] [place] [address] Dec, [facility] [address] [place] [id number] [place] [address] Dec, [facility] [address] [id number] [place] [address] Dec, [facility] [address] [id number] [place] [address] Dec, [facility] [address] [id number] [place] [address] Dec, [facility] [address] [id number] [place] [address] Dec, [facility] [address] [facility] [id number] Dec, [facility] [address] [facility] [id number] Dec, [facility] [address] [id number] [place] [address] Dec, [facility] [address] [id number] [place] [address] Dec, [facility] [address] [id number] [place] [address] Dec, [facility] [address] [id number] [place] [address] Dec, [facility] [address] [id number] [place] [address] Nov, [facility] [address] [id number] [place] [address] Nov, [facility] [place] [facility] [address] [facility] [id number] [place] [address] Nov, [facility] [place] [facility] [address] [id number] [place] [address] Nov, [facility] [place] [facility] [address] [id number] [place] [address] Nov, [facility] [place] [facility] [address] [id number] [place] [address] Nov, [facility] [place] [facility] [address] [facility] [id number] [facility] [place] [address] Nov, [facility] [place] [facility] [address] [facility] [id number] [place] [address] Nov, [facility] [place] [facility] [address] [facility] [id number] [facility] [place] [address] Nov, [facility] [place] [facility] [address] [facility] [id number] [place] [address] Nov, [facility] [place] [facility] [address] [facility] [id number] [facility] [place] [address] Nov, [facility] [place] [facility] [address] [facility] [id number] [place] [address] Nov, [facility] [place] [facility] [address] [facility] [id number] [facility] [place] [address] Nov, [facility] [place] [facility] [address] [facility] [id number] [facility] [place] [address] Oct, [facility] [place] [facility] [address] [facility] [id number] [facility] [place] [address] Oct, [facility] [place] [facility] [address] [facility] [id number] [facility] [place] [address] Oct, [facility] [place] [facility] [address] [facility] [id number] [facility] [place] [address] Oct, [facility] [place] [facility] [address] [facility] [id number] [facility] [place] [address] Oct, [facility] [place] [facility] [address] [facility] [id number] [facility] [place] [address] Oct, [facility] [place] [facility] [address] [facility] [id number] [place] [address] Oct, [facility] [place] [facility] [address] [facility] [id number] [place] [address] Oct, [facility] [place] [facility] [address] [facility] [id number] [facility] [place] [address] Oct, [facility] [place] [facility] [address] [facility] [id number] [place] [address] Oct, [facility] [place] [facility] [address] [id number] [facility] [place] [address] Oct, [facility] [place] [facility] [address] [facility] [id number] [place] [address] Oct, [facility] [place] [facility] [address] [id number] [facility] [place] [address] September, [facility] [place] [facility] [address] [id number] [place] [address] September, [facility] [place] [facility] [address] [id number] [facility] [place] [address] September, [facility] [place] [facility] [address] [id number] [place] [address] September, [facility] [place] [facility] [address] [id number] [place] [address] Aug, [facility] [place] [facility] [address] [id number] [place] [address] Aug, [facility] [place] [facility] [address] [id number] [place] [address] Aug, [facility] [place] [facility] [address] [id number] [place] [address] Aug, [facility] [place] [facility] [address] [id number] [place] [address] Aug, [facility] [place] [facility] [address] [id number] [place] [address] Aug, [facility] [place] [facility] [address] [id number] [place] [address] Aug, [facility] [place] [facility] [address] [id number] [place] [address] Jul, [facility] [place] [facility] [address] [id number] [place] [address] Jul, [facility] [place] [facility] [address] [id number] [place] [address] Jul, [facility] [place] [facility] [address] [id number] [place] [address] Jul, [facility] [place] [facility] [address] [id number] [place] [address] Jul, [facility] [place] [facility] [address] [id number] [place] [address] Jul, [facility] [place] [facility] [address] [id number] [place] [address] Jul, [facility] [place] [facility] [address] [id number] [place] [address] Jul, [facility] [place] [facility] [address] [id number] [place] [address] Jul, [facility] [place] [facility] [address] [id number] [place] [address] Jul, [facility] [place] [facility] [address] [id number] [place] [address] Jul, [facility] [place] [facility] [address] [id number] [place] [address] Jul, [facility] [place] [facility] [address] [id number] [place] [address] Jul, [facility] [place] [facility] [address] [id number] [place] [address] Jul, [facility] [place] [facility] [address] [id number] [place] [address] Jul, [facility] [place] [facility] [address] [id number] [place] [address] Jul, [facility] [place] [facility] [address] [id number] [place] [address] Jul, [facility] [place] [facility] [address] [id number] [place] [address] Jul, [facility] [place] [facility] [address] [id number] [place] [address] Jun, [facility] [place] [facility] [address] [id number] [place] [address] 31 Jun, 2013 [facility] [place] [facility] [address] [id number] [place] [address] 15 Jun, 2013 [facility] [place] [facility] [address] [id number] [place] [address] 15 Jun, 2013 [facility] [place] [facility] [address] [id number] [place] [address] 14 Jun, 2013 [facility] [place] [facility] [address] [id number] [place] [address] 14 Jun, 2013 [facility] [place] [facility] [address] [id number] [place] [address] 14 Jun, 2013 [facility] [place] [facility] [address] [id number] [place] [address] 14 Jun, 2013 [facility] [place] [facility] [address] [id number] [place] [address] 14 Jun, 2013 [facility] [place] [facility] [address] [id number] [place] [address] 14 Jun, 2013 [facility] [place] [facility] [address] [id number] [place] [address] 27 May, 2013 [facility] [place] [facility] [address] [id number] [place] [address] 27 May, 2013 [facility] [place] [facility] [address] [id number] [place] [address] 26 May, 2013 [facility] [place] [facility] [address] [id number] [place] [address] 19 May, 2013 [facility] [place] [facility] [address] [id number] [place] [address] 19 May, 2013 [facility] [place] [facility] [address] [id number] [place] [address] 16 May, 2013 [facility] [place] [facility] [address] [id number] [place] [address] 16 May, 2013 [facility] [place] [facility] [address] [id number] [place] [address] 16 May, 2013 [facility] [place] [facility] [address] [id number] [place] [address] 16 May, 2013 [facility] [place] [facility] [address] [id number] [place] [address] 13 May, 2013 [facility] [place] [facility] [address] [id number] [place] [address] 13 May, 2013 [facility] [place] [facility] [address] [id number] [place] [address] 11 May, 2013 [facility] [place] [facility] [address] [id number] [place] [address] 20 Apr, 2013 [facility] [place] [facility] [address] [id number] [place] [address] 18 Apr, 2013 [facility] [place] [facility] [address] [id number] [place] [address] 18 Apr, 2013 [facility] [place] [facility] [address] [id number] [place] [address] Apr, [facility] [place] [facility] [address] [id number] [place] [address] Apr, [facility] [place] [facility] [address] [id number] [place] [address] 08 Apr, 2013 [facility] [place] [facility] [address] [id number] [place] [address] 08 Apr, 2013 [facility] [place] [facility] [address] [id number] [place] [address] Apr, [facility] [place] [facility] [address] [id number] [place] [address] 07 Apr, 2013 [facility] [place] [facility] [address] [id number] [place] [address] 07 Apr, 2013 [facility] [place] [facility] [address] [id number] [place] [address] Apr, [facility] [place] [facility] [address] [id number] [place] [address] 25 Mar, 2013 [facility] [place] [facility] [address] [id number] [place] [address] Mar, [facility] [place] [facility] [address] [facility] [id number] [place] [address] Mar, [facility] [place] [facility] [address] [facility] [id number] [place] [address] Mar, [facility] [place] [facility] [address] [facility] [id number] [place] [address] Mar, [facility] [place] [facility] [address] [facility] [id number] [place] [address] Mar, [facility] [place] [facility] [address] [facility] [id number] [place] [address] Mar, [facility] [place] [facility] [address] [facility] [id number] [place] [address] Mar, [facility] [place] [facility] [address] [id number] [place] [address] Mar, [facility] [place] [facility] [address] [id number] [place] [address] Mar, [facility] [place] [facility] [address] [facility] [id number] [place] [address] 15 Mar, 2013 [facility] [place] [facility] [address] [id number] [place] [address] Mar, [facility] [place] [facility] [address] [id number] [place] [address] 30 Jan, 2012 [facility] [place] [facility] [address] [id number] [place] [address] 25 Jan, 2013 [facility] [place] [facility] [address] [facility] [id number] [place] [address] 20 Jan, 2012 [facility] [place] [facility] [address] [facility] [id number] [place] [address] 10 Jan, 2012 [facility] [place] [facility] [address] [facility] [id number] [place] [address] Dec, [facility] [place] [facility] [address] [id number] [place] [address] Dec, [facility] [place] [facility] [address] [id number] [place] [address] Dec, [facility] [place] [facility] [address] [id number] [facility] [place] [address] Dec, [facility] [place] [facility] [address] [facility] [id number] [place] [address] Dec, [facility] [place] [facility] [address] [id number] [place] [address] Dec, [facility] [place] [facility] [address] [id number] [place] [address] Dec, [facility] [place] [facility] [address] [id number] [place] [address] Dec, [facility] [place] [facility] [address] [id number] [place] [address] Dec, [facility] [place] [facility] [address] [id number] [place] [address] Nov, [facility] [place] [facility] [address] [id number] [place] [address] Nov, [facility] [place] [facility] [address] [id number] [place] [address] Nov, [facility] [place] [facility] [address] [id number] [place] [address] Nov, [facility] [place] [facility] [address] [id number] [place] [address] Nov, [facility] [place] [facility] [address] [id number] [place] [address] Nov, [facility] [place] [facility] [address] [id number] [place] [address] Nov, [facility] [place] [facility] [address] [id number] [place] [address] Nov, [facility] [place] [facility] [address] [id number] [place] [address] Oct, [facility] [place] [facility] [address] [id number] [place] [address] Oct, [facility] [place] [facility] [address] [id number] [place] [address] Oct, [facility] [place] [facility] [address] [id number] [place] [address] Oct, [facility] [place] [facility] [address] [id number] [place] [address] Oct, [facility] [place] [facility] [address] [id number] [place] [address] Oct, [facility] [place] [facility] [address] [id number] [place] [address] Oct, [facility] [place] [facility] [address] [id number] [place] [address] Oct, [facility] [place] [facility] [address] [id number] [place] [address] Oct, [facility] [place] [facility] [address] [id number] [place] [address] 18 Oct, 2012 [facility] [place] [facility] [address] [id number] [place] [address] 17 Oct, 2012 [facility] [place] [facility] [address] [id number] [place] [address] 14 Oct, 2012 [facility] [place] [facility] [address] [id number] [place] [address] 07 Oct, 2012 [facility] [place] [facility] [address] [id number] [place] [address] 30 Sep, 2012 [facility] [place] [facility] [address] [id number] [place] [address] September, [facility] [place] [facility] [address] [id number] [place] [address] 15 Sep, 2012 [facility] [place] [facility] [address] [id number] [place] [address] 25 Aug, 2012 [facility] [place] [facility] [address] [id number] [place] [address] 24 Aug, 2012 [facility] [place] [facility] [address] [id number] [place] [address] 18 Aug, 2012 [facility] [place] [facility] [address] [facility] [id number] [facility] [place] [address] 18 Aug, 2012 [facility] [place] [facility] [address] [facility] [id number] [facility] [place] [address] 18 Aug, 2012 [facility] [place] [facility] [address] [id number] [place] [address] 08 Aug, 2012 [facility] [place] [facility] [address] [id number] [facility] [place] [address] 05 Aug, 2012 [facility] [place] [facility] [address] [facility] [id number] [facility] [place] [address] Jul, [facility] [place] [facility] [address] [id number] [facility] [place] [address] Jul, [facility] [place] [facility] [address] [id number] [place] [address] 08 Jul, 2012 [facility] [place] [facility] [address] [id number] [facility] [place] [address] 08 Jul, 2012 [facility] [place] [facility] [address] [id number] [place] [address] 08 Jul, 2012 [facility] [place] [facility] [address] [id number] [place] [address] Jul, [facility] [place] [facility] [address] [id number] [place] [address] Jul, [facility] [place] [facility] [address] [id number] [place] [address] Jul, [facility] [place] [facility] [address] [id number] [facility] [place] [address] Jul, [facility] [place] [facility] [address] [id number] [place] [address] Jul, [facility] [place] [facility] [address] [id number] [place] [address] 11 Jul, 2012 [facility] [place] [facility] [address] [id number] [place] [address] 06 Jul, 2012 [facility] [place] [facility] [address] [id number] [place] [address] Jul, [facility] [address] [id number] [place] [address] Jun, [facility] [place] [facility] [address] [id number] [place] [address] Jun, [facility] [place] [facility] [address] [id number] [place] [address] Jun, [facility] [place] [facility] [address] [id number] [place] [address] Jun, [facility] [place] [facility] [address] [id number] [place] [address] 15 Jun, 2012 [facility] [place] [facility] [address] [id number] [place] [address] Jun, [facility] [address] [id number] [place] [address] Jun, [facility] [place] [facility] [address] [id number] [place] [address] May, [facility] [place] [facility] [address] [id number] [place] [address] May, [facility] [place] [facility] [address] [id number] [place] [address] May, [facility] [place] [facility] [address] [id number] [place] [address] May, [facility] [place] [facility] [address] [id number] [place] [address] May, [facility] [place] [facility] [address] [id number] [place] [address] May, [facility] [place] [facility] [address] [id number] [place] [address] May, [facility] [place] [facility] [address] [id number] [place] [address] May, [facility] [place] [facility] [address] [id number] [place] [address] May, [facility] [place] [facility] [address] [id number] [place] [address] May, [facility] [place] [facility] [address] [id number] [place] [address] Apr, [facility] [place] [facility] [address] [id number] [place] [address] Apr, [facility] [place] [facility] [address] [id number] [place] [address] Apr, [facility] [place] [facility] [address] [id number] [place] [address] Apr, [facility] [place] [facility] [address] [id number] [place] [address] Apr, [facility] [place] [facility] [address] [id number] [place] [address] Apr, [facility] [place] [facility] [address] [id number] [place] [address] Apr, [facility] [place] [facility] [address] [id number] [place] [address] Apr, [facility] [place] [facility] [address] [id number] [place] [address] Apr, [facility] [place] [facility] [address] [id number] [place] [address] Apr, [facility] [place] [facility] [address] [id number] [place] [address] Apr, [facility] [place] [facility] [address] [id number] [place] [address] Apr, [facility] [place] [facility] [address] [id number] [place] [address] Mar, [facility] [place] [facility] [address] [id number] [place] [address] Mar, [facility] [place] [facility] [address] [id number] [place] [address] Mar, [facility] [place] [facility] [address] [id number] [place] [address] Mar, 2011 [facility] [place] [facility] [address] [facility] [id number] [place] [address] Mar, [facility] [place] [facility] [address] [id number] [place] [address] Mar, [facility] [place] [facility] [address] [id number] [place] [address] Mar, [facility] [place] [facility] [address] [id number] [place] [address] Mar, [facility] [place] [facility] [address] [id number] [place] [address] Mar, [facility] [place] [facility] [address] [id number] [place] [address] Mar, [facility] [place] [facility] [address] [id number] [place] [address] Mar, [facility] [place] [facility] [address] [id number] [place] [address] Mar, [facility] [place] [facility] [address] [id number] [place] [address] Mar, [facility] [place] [facility] [address] [id number] [place] [address] Mar, [facility] [place] [facility] [address] [id number] [place] [address] Mar, [facility] [place] [facility] [address] [id number] [place] [address] Mar, [facility] [place] [facility] [address] [id number] [place] [address] 25 Jan, 2011 [facility] [place] [facility] [address] [id number] [place] [address] 24 Sep, 2011 [facility] [place] [facility] [address] [id number] [place] [address] 22 Jan, 2011 [facility] [place] [facility] [address] [id number] [place] [address] 22 Jan, 2011 [facility] [place] [facility] [address] [id number] [place] [address] 21 Jan, 2012 [facility] [place] [facility] [address] [id number] [place] [address] 18 Jan, 2012 [facility] [place] [facility] [address] [id number] [place] [address] 14 Jan, 2012 [facility] [place] [facility] [address] [id number] [place] [address] 07 Jan, 2012 [facility] [place] [facility] [address] [id number] [place] [address] 15 Dec, 2011 [facility] [place] [facility] [address] [id number] [place] [address] 10 Dec, 2011 [facility] [place] [facility] [address] [id number] [place] [address] Dec, [facility] [place] [facility] [address] [id number] [place] [address] Dec, [facility] [place] [facility] [address] [id number] [place] [address] Dec, [facility] [place] [facility] [address] [id number] [place] [address] Dec, [facility] [address] [id number] [place] [address] Dec, [facility] [address] [id number] [place] [address] Nov, [facility] [address] [id number] [place] [address] Oct, [facility] [address] [id number] [place] [address] Aug, [facility] [address] [id number] [place] [address] 22 Jul, 2011 [facility] [address] [id number] [place] [address] Jul, [facility] [address] [id number] [place] [address] 16 Jul, 2011 [facility] [address] [id number] [place] [address] 14 Jul, 2011 [facility] [address] [id number] [place] [address] 07 Jul, 2011 [facility] [address] [id number] [place] [address] 02 Jul, 2011 [facility] [address] [id number] [place] [address] Jul, [facility] [address] [id number] [place] [address] 15 Jul, 2011 [facility] [address] [id number] [place] [address] 13 Jul, 2011 [facility] [address] [id number] [place] [address] Jul, [facility] [address] [id number] [place] [address] Jul, [facility] [address] [id number] [place] [address] Jun, [facility] [address] [id number] [place] [address] Jun, [facility] [address] [id number] [place] [address] Jun, [facility] [address] [id number] [place] [address] Jun, [facility] [address] [id number] [place] [address] Jun, [facility] [address] [id number] [place] [address] Jun, [facility] [address] [id number] [place] [address] Jun, [facility] [address] [id number] [place] [address] May, [facility] [address] [id number] [place] [address] May, [facility] [address] [id number] [place] [address] May, [facility] [address] [id number] [place] [address] May, [facility] [id number] [place] [address] 14 May, 2011 [facility] [id number] [place] [address] May, [facility] [address] [id number] [place] [address] May, [facility] [id number] [place] [address] May, [facility] [id number] [place] [address] May, [facility] [id number] [place] [address] May, [facility] [id number] [place] [address] Apr, [facility] [id number] [place] [address] Apr, [facility] [id number] [place] [address] Apr, [facility] [id number] [place] [address] Apr, [facility] [address] [id number] [place] [address] Mar, [facility] [id number] [place] [address] Mar, [facility] [id number] [place] [address] Mar, [facility] [id number] [place] [address] Mar, IMMUNIZATIONS No Known Immunizations SOCIAL HISTORY Never Assessed REASON FOR VISIT xanax refill PLAN OF CARE VITAL SIGNS MEDICATIONS Medication Instructions Dosage Frequency Start Date End Date Duration S james Alprazolam 1MG Orally 2 times a day as needed for anxie ty must last 30 days 1 tablet 30 days Active RESULTS No [...]
--- OUTSIDE RECORDS SUMMARY | 2020-01-03 18:22 | XMS REPORT ---
Author Author Pattie Moffett Doctor Organization [facility] Address Unknown Phone Unavailable Care Team Providers Care Activities Aide Name Role Phone Migration, Doctor Unavailable Unavailable PROBLEMS Type Condition ICD9-CM Code QDT60-NE Code Onset Dates Condition S tatus SNOMED Code Problem FRANCIS (generalized anxiety disorder) F41.1 Active 47734528 Problem Thoracic disc herniation M51.24 Activ e 348870335 Problem Major depressive disorder in partial remission F32 .4 Active 40943933 Problem Paroxysmal tachycardia I47.9 Active 85227436 Problem Slow transit constipation K59.01 Acti ve 04872137 Problem Constipation, unspecified constipation type K59.00 Active 55780661 Problem Obesity (BMI 30.0-34.9) E66.9 Active [id number] Problem Seizure disorder G40.909 Active 128 478951 Problem High blood pressure I10 Active 79333039 Problem Conversion disorder (or hysterical neurosis, conversion ty pe) F44.9 Active 84650726 Problem Mild episode of recurrent major depressive disorder F33.0 Active 092296116 Problem Restless leg syndrome G25.81 Active 16751286 Problem Other chronic pain G89.29 Active 8 7701608 Problem Mild intermittent asthma without complication J45. 20 Active [id number] ALLERGIES No Information ENCOUNTERS Encounter Location Date Diagnosis [place] [address] [address] 27 Jul, 2019 Major depressive disorder in partial rem ission F32.4 ; FRANCIS (generalized anxiety disorder) F41.1 ; Restless leg syndrome G25.81 and High blood pressure I10 [facility] [address] [address] 17 Jul, 2019 [facility] [address] [address] Jul, [facility] [address] [address] Jun, [facility] [address] [address] May, [facility] [address] [address] Apr, [facility] [address] [address] Apr, [facility] [address] [address] Mar, [facility] [address] [address] Mar, Major depressive disorder in partial rem ission F32.4 ; FRANCIS (generalized anxiety disorder) F41.1 and Restless leg syndrome G25.81 [facility] [address] [address] Mar, Obesity (BMI 30.0-34.9) E66.9 [place] [address] [address] Jan, [facility] [address] [facility] [id number] [address] [place] [address] Jan, Burn T30.0 [facility] [address] [address] Dec, [facility] [address] [address] Nov, [facility] [address] [address] Nov, [facility] [address] [facility] [place] [id number] Nov, Dental examination Z01.20 [facility] [address] [address] September, [facility] [address] [id number] September, Decay, teeth K02.9 and Dental examinatio n Z01.20 [facility] [address] [id number] [place] [id number] 08 Sep, 2018 Dental examination Z01.20 [place] [address] [address] September, FRANCIS (generalized anxiety disorder) F41.1 ; Major depressive disorder in partial remission F32.4 and Restless leg syndrome G25.81 [place] [address] [address] Aug, [place] [address] [address] Jul, [place] [address] [address] Jul, Encounter to discuss test results Z71.2 [place] [address] [address] Jul, Pelvic pain R10.2 ; Screening for breast cancer Z12.31 and Obesity (BMI 30.0-34.9) E66.9 [place] [address] [address] Jul, Mild intermittent asthma without complic ation J45.20 [place] [address] [address] 12 Jul, 2018 Major depressive disorder in partial rem ission F32.4 and FRANCIS (generalized anxiety disorder) F41.1 [place] [address] [address] Jul, [place] [address] [address] Jun, [place] [address] [address] May, Major depressive disorder in partial rem ission F32.4 ; FRANCIS (generalized anxiety disorder) F41.1 and Restless leg syndrome G25.81 [place] [address] [address] Apr, [place] [address] [place] [id number] [place] [address] Mar, [facility] [address] [facility] [id number] [address] [place] [address] Jan, Pain in thoracic spine M54.6 and Other chronic pain G89.29 [facility] [address] [address] Jan, [facility] [address] [address] Jan, Mild episode of recurrent major depressi ve disorder F33.0 ; FRANCIS (generalized anxiety disorder) F41.1 and Restless leg syndrome G25.81 [facility] [address] [address] Dec, [facility] [address] [address] Dec, Hospital discharge follow-up Z09 [facility] [address] [address] Nov, [facility] [address] [address] Nov, [facility] [address] [address] September, [facility] [address] [address] September, [facility] [address] [address] September, Major depressive disorder in partial rem ission F32.4 ; FRANCIS (generalized anxiety disorder) F41.1 and Restless leg syndrome G25.81 [facility] [address] [address] September, [facility] [address] [address] Jul, [facility] [address] [address] Jul, Dorsalgia, unspecified M54.9 [place] [address] [address] Jul, Mild episode of recurrent major depressi ve disorder F33.0 and FRANCIS (generalized anxiety disorder) F41.1 [place] [address] [address] May, [facility] [address] [place] [id number] [address] [place] [address] May, Dysuria R30.0 and Acute cyst itis with hematuria N30.01 [place] [address] [address] Apr, [place] [address] [address] Apr, Major depressive disorder in partial rem ission F32.4 and FRANCIS (generalized anxiety disorder) F41.1 [place] [address] [address] Mar, Paroxysmal tachycardia I47.9 [place] [address] [address] Mar, Paroxysmal tachycardia I47.9 and Pain of left lower extremity M79.605 [place] [address] [address] Mar, FRANCIS (generalized anxiety disorder) F41.1 and Major depressive disorder in partial remission F32.4 [place] [address] [address] Jan, [place] [address] [address] Jan, [place] [address] [address] Jan, [facility] [address] [facility] [id number] [address] [place] [address] Dec, Constipation, unspecified co nstipation type K59.00 [place] [id number] [address] Dec, [place] [address] [address] Nov, [place] [address] [address] Nov, Major depressive disorder in partial rem ission F32.4 and FRANCIS (generalized anxiety disorder) F41.1 [facility] [address] [place] [id number] [address] [place] [address] Oct, Abdominal pain R10.9 and Slo w transit constipation K59.01 [place] [address] [address] Aug, Major depressive disorder in partial rem ission F32.4 ; FRANCIS (generalized anxiety disorder) F41.1 ; Conversion disorder (or hysterical neurosis, conversion type) F44.9 ; Dorsalgia, unspecified M54.9 and Long-term use of high-risk medication Z79.899 [place] [address] [address] Aug, [place] [address] [address] Jul, Paroxysmal tachycardia I47.9 [place] [address] [address] Jul, Paroxysmal tachycardia I47.9 [place] [address] [address] Jun, [place] [address] [address] Jun, Major depressive disorder in partial rem ission F32.4 ; FRANCIS (generalized anxiety disorder) F41.1 and Conversion disorder (or hysterical neurosis, conversion type) F44.9 [facility] [address] [place] [id number] [place] [address] May, Pelvic pain R10.2 [facility] [address] [place] [id number] [place] [address] 30 Apr, 2016 Gastroenteritis K52.9 [facility] [address] [place] [id number] [place] [address] Apr, Blood in urine R31.9 and Acu te cystitis with hematuria N30.01 [facility] [address] [address] Apr, Major depressive disorder in partial rem ission F32.4 ; FRANCIS (generalized anxiety disorder) F41.1 and Conversion disorder (or hysterical neurosis, conversion type) F44.9 [place] [address] [address] Apr, [place] [address] [address] Apr, Abnormal mammogram R92.8 [place] [address] [address] Mar, [place] [address] [address] Mar, Gastroenteritis K52.9 and Seizure disord er G40.909 [place] [address] [address] Dec, [facility] [address] [place] [address] Dec, Other headache syndrome G44. 89 [place] [address] [address] Dec, [place] [address] [address] Dec, Thoracic disc herniation M51.24 [place] [address] [address] Dec, [place] [address] [address] Nov, Major depressive disorder in partial rem ission F32.4 and FRANCIS (generalized anxiety disorder) F41.1 [facility] [address] [id number] [place] [address] Nov, [facility] [address] [id number] [place] [address] Nov, Dorsalgia, unspecified M54.9 [facility] [address] [place] [id number] [place] [address] Oct, [facility] [address] [place] [id number] [place] [address] September, [facility] [address] [address] Aug, [facility] [address] [place] [id number] [place] [address] Aug, Major depressive disorder in partial rem ission F32.4 and FRANCIS (generalized anxiety disorder) F41.1 [facility] [address] [place] [id number] [place] [address] Aug, [facility] [address] [place] [id number] [place] [address] Jul, Abnormal mammogram R92.8 [facility] [address] [place] [id number] [place] [address] Jul, [facility] [address] [id number] [place] [address] Jul, [facility] [address] [place] [id number] [place] [address] Jul, [facility] [address] [id number] [place] [address] Jul, [facility] [address] [place] [id number] [place] [address] Jul, [facility] [address] [place] [id number] [place] [address] Jul, [facility] [address] [place] [address] [address] Jun, Major depressive disorder in partial rem ission F32.4 and FRANCIS (generalized anxiety disorder) F41.1 [facility] [address] [address] Jun, [facility] [address] [address] May, [facility] [address] [address] Apr, [facility] [address] [address] Mar, Major depressive disorder, recurrent epi sode, moderate F33.1 ; PTSD (post-traumatic stress disorder) F43.10 and FRANCIS (generalized anxiety disorder) F41.1 [facility] [address] [address] Mar, [facility] [address] [address] Mar, [facility] [address] [address] Mar, [facility] [address] [address] Mar, [facility] [address] [address] Jan, [facility] [address] [address] 15 Jan, 2015 [facility] [address] [address] 15 Jan, 2015 [facility] [address] [address] 14 Jan, 2015 Thoracic disc herniation 722.11 [facility] [address] [address] Dec, [facility] [address] [address] Dec, [facility] [address] [place] [id number] [place] [address] Dec, [facility] [address] [place] [id number] [place] [address] Nov, [facility] [address] [place] [id number] [place] [address] Nov, Generalized anxiety disorder 300.02 ; Po sttraumatic stress disorder 309.81 and Major depressive disorder, recurrent episode, moderate 296.32 [facility] [address] [place] [id number] [place] [address] Nov, [facility] [address] [place] [id number] [place] [address] Nov, [facility] [address] [place] [id number] [place] [address] Oct, [facility] [address] [place] [id number] [place] [address] Oct, [facility] [address] [place] [id number] [place] [address] Oct, [facility] [address] [place] [id number] [place] [address] September, [facility] [address] [place] [id number] [place] [address] September, [facility] [address] [place] [id number] [place] [address] Aug, [facility] [address] [place] [id number] [place] [address] Aug, [facility] [address] [place] [id number] [place] [address] Jul, [facility] [address] [place] [id number] [place] [address] Jul, [facility] [address] [place] [id number] [place] [address] Jul, [facility] [address] [place] [id number] [place] [address] 17 Jul, 2014 [facility] [address] [facility] [id number] [place] [address] Jul, [facility] [address] [id number] [facility] [place] [address] Jul, [facility] [address] [id number] [place] [address] Jul, [facility] [address] [id number] [place] [address] Jul, [facility] [address] [id number] [place] [address] Jul, [facility] [address] [id number] [place] [address] Jul, [facility] [address] [id number] [place] [address] Jun, [facility] [address] [id number] [place] [address] Jun, [facility] [address] [id number] [place] [address] Jun, [facility] [address] [id number] [place] [address] May, [facility] [address] [id number] [place] [address] Apr, [facility] [address] [id number] [place] [address] Apr, [facility] [address] [id number] [place] [address] Apr, [facility] [address] [id number] [place] [address] Apr, [facility] [address] [id number] [place] [address] Apr, [facility] [address] [id number] [place] [address] Apr, [facility] [address] [facility] [id number] [place] [address] Apr, [facility] [address] [facility] [id number] [place] [address] Apr, [facility] [address] [facility] [id number] [place] [address] Mar, [facility] [address] [id number] [place] [address] Mar, [facility] [address] [id number] [place] [address] Mar, [facility] [address] [id number] [place] [address] Mar, [facility] [address] [id number] [place] [address] Mar, [facility] [address] [id number] [place] [address] Mar, [facility] [address] [id number] [place] [address] Mar, [facility] [address] [id number] [place] [address] Mar, [facility] [address] [id number] [place] [address] Mar, [facility] [address] [id number] [place] [address] Mar, [facility] [address] [id number] [place] [address] Mar, [facility] [address] [id number] [place] [address] 14 Mar, 2014 [facility] [address] [id number] [place] [address] 14 Mar, 2014 [facility] [address] [id number] [place] [address] Mar, [facility] [address] [id number] [place] [address] Mar, 2013 [facility] [address] [id number] [place] [address] 06 Mar, 2013 [facility] [address] [id number] [place] [address] Mar, 2013 [facility] [address] [id number] [place] [address] Sep, 2013 [facility] [address] [id number] [place] [address] 19 Sep, 2013 [facility] [address] [id number] [place] [address] 09 Sep, 2013 [facility] [address] [id number] [place] [address] 09 Sep, 2013 [facility] [address] [id number] [place] [address] 05 Sep, 2013 [facility] [address] [id number] [place] [address] 05 Sep, 2013 [facility] [address] [id number] [place] [address] 05 Sep, 2013 [facility] [address] [id number] [place] [address] 05 Sep, 2013 [facility] [address] [id number] [place] [address] 03 Sep, 2013 [facility] [address] [id number] [place] [address] Sep, 2013 [facility] [address] [id number] [place] [address] 02 Sep, 2013 [facility] [address] [id number] [place] [address] Sep, 2013 [facility] [address] [id number] [place] [address] Sep, 2013 [facility] [address] [id number] [place] [address] Dec, 2013 [facility] [address] [id number] [place] [address] Dec, [facility] [address] [facility] [id number] [place] [address] Dec, [facility] [address] [id number] [place] [address] Dec, [facility] [address] [id number] [place] [address] Dec, [facility] [address] [id number] [place] [address] Dec, [facility] [address] [facility] [id number] Dec, [facility] [address] [facility] [id number] Dec, [facility] [address] [id number] [place] [address] Dec, [facility] [address] [id number] [place] [address] Dec, [facility] [address] [id number] [place] [address] Dec, [facility] [address] [id number] [place] [address] Dec, [facility] [address] [id number] [place] [address] Nov, [facility] [place] [facility] [address] [id number] [place] [address] Nov, [facility] [place] [address] [id number] [place] [address] Nov, [facility] [place] [address] [facility] [id number] [place] [address] Nov, [facility] [place] [address] [id number] [place] [address] Nov, [facility] [place] [address] [id number] [place] [address] Nov, [facility] [place] [address] [id number] [place] [address] Nov, [facility] [place] [address] [facility] [id number] [facility] [place] [address] Nov, [facility] [place] [address] [facility] [id number] [facility] [place] [address] Nov, [facility] [place] [address] [id number] [facility] [place] [address] Nov, [facility] [place] [address] [facility] [id number] [facility] [place] [address] Nov, [facility] [place] [address] [facility] [id number] [facility] [place] [address] Nov, [facility] [place] [address] [facility] [id number] [facility] [place] [address] Nov, [facility] [place] [address] [id number] [facility] [place] [address] Oct, [facility] [place] [address] [id number] [facility] [place] [address] Oct, [facility] [place] [address] [facility] [id number] [facility] [place] [address] Oct, [facility] [place] [address] [id number] [place] [address] Oct, [facility] [place] [address] [id number] [place] [address] Oct, [facility] [place] [address] [id number] [place] [address] Oct, [facility] [place] [address] [facility] [id number] [facility] [place] [address] Oct, [facility] [place] [address] [facility] [id number] [place] [address] Oct, [facility] [place] [address] [facility] [id number] [place] [address] Oct, [facility] [place] [address] [id number] [place] [address] Oct, [facility] [place] [address] [facility] [id number] [facility] [place] [address] Oct, [facility] [place] [address] [id number] [place] [address] Oct, [facility] [place] [address] [facility] [id number] [facility] [place] [address] September, [facility] [place] [address] [id number] [place] [address] September, [facility] [place] [facility] [address] [facility] [id number] [facility] [place] [address] September, [facility] [address] [facility] [id number] [facility] [place] [address] September, [facility] [address] [id number] [place] [address] Aug, [facility] [address] [id number] [place] [address] Aug, [facility] [address] [id number] [place] [address] Aug, [facility] [address] [facility] [id number] [facility] [place] [address] Aug, [facility] [address] [id number] [place] [address] Aug, [facility] [address] [id number] [place] [address] Aug, [facility] [address] [id number] [place] [address] Aug, [facility] [address] [facility] [id number] [place] [address] Jul, [facility] [address] [id number] [place] [address] Jul, [facility] [address] [id number] [place] [address] Jul, [facility] [address] [id number] [place] [address] Jul, [facility] [address] [facility] [id number] [place] [address] Jul, [facility] [address] [id number] [place] [address] Jul, [facility] [address] [id number] [place] [address] Jul, [facility] [address] [id number] [place] [address] Jul, [facility] [address] [facility] [id number] [place] [address] Jul, [facility] [address] [id number] [place] [address] Jul, [facility] [address] [id number] [place] [address] Jul, [facility] [address] [id number] [place] [address] Jul, [facility] [address] [id number] [place] [address] Jul, [facility] [address] [id number] [place] [address] Jul, [facility] [address] [id number] [place] [address] Jul, [facility] [address] [id number] [place] [address] Jul, [facility] [address] [id number] [place] [address] Jul, [facility] [address] [id number] [place] [address] Jul, [facility] [address] [id number] [place] [address] Jun, [facility] [address] [id number] [place] [address] Jun, [facility] [address] [id number] [place] [address] 15 Jun, 2013 [facility] [address] [id number] [place] [address] 15 Jun, 2013 [facility] [address] [id number] [place] [address] 14 Jun, 2013 [facility] [address] [id number] [place] [address] 14 Jun, 2013 [facility] [address] [id number] [place] [address] 14 Jun, 2013 [facility] [address] [id number] [place] [address] 14 Jun, 2013 [facility] [address] [id number] [place] [address] 14 Jun, 2013 [facility] [address] [id number] [place] [address] 14 Jun, 2013 [facility] [address] [id number] [place] [address] 27 May, 2013 [facility] [address] [id number] [place] [address] 27 May, 2013 [facility] [address] [id number] [place] [address] 26 May, 2013 [facility] [address] [id number] [place] [address] 19 May, 2013 [facility] [address] [id number] [place] [address] 19 May, 2013 [facility] [address] [id number] [place] [address] 16 May, 2013 [facility] [address] [id number] [place] [address] 16 May, 2013 [facility] [address] [id number] [place] [address] 16 May, 2013 [facility] [address] [id number] [place] [address] 16 May, 2013 [facility] [address] [id number] [place] [address] 13 May, 2013 [facility] [address] [id number] [place] [address] 13 May, 2013 [facility] [address] [id number] [place] [address] 11 May, 2013 [facility] [address] [id number] [place] [address] 20 Apr, 2013 [facility] [address] [id number] [place] [address] 18 Apr, 2013 [facility] [address] [id number] [place] [address] 18 Apr, 2013 [facility] [address] [id number] [place] [address] Apr, [facility] [id number] [place] [address] 13 Apr, 2013 [facility] [address] [id number] [place] [address] 08 Apr, 2013 [facility] [address] [id number] [place] [address] 08 Apr, 2013 [facility] [address] [id number] [place] [address] 07 Apr, 2013 [facility] [address] [id number] [place] [address] 07 Apr, 2013 [facility] [address] [id number] [place] [address] 07 Apr, 2013 [facility] [address] [id number] [place] [address] 07 Apr, 2013 [facility] [address] [id number] [place] [address] Mar, [facility] [address] [id number] [place] [address] Mar, [facility] [address] [id number] [place] [address] Mar, [facility] [address] [facility] [id number] [place] [address] Mar, [facility] [address] [facility] [id number] [place] [address] Mar, [facility] [address] [id number] [place] [address] Mar, [facility] [address] [id number] [place] [address] Mar, [facility] [address] [facility] [id number] [place] [address] Mar, [facility] [address] [id number] [place] [address] Mar, [facility] [address] [id number] [place] [address] Mar, [facility] [address] [id number] [place] [address] 15 Mar, 2013 [facility] [address] [id number] [place] [address] Mar, [facility] [address] [id number] [place] [address] 30 Jan, 2013 [facility] [address] [id number] [place] [address] 25 Jan, 2013 [facility] [address] [id number] [place] [address] 20 Jan, 2013 [facility] [address] [id number] [place] [address] Jan, [facility] [address] [id number] [place] [address] Dec, [facility] [address] [id number] [place] [address] Dec, [facility] [address] [id number] [place] [address] Dec, [facility] [address] [id number] [facility] [place] [address] Dec, [facility] [address] [id number] [facility] [place] [address] Dec, [facility] [address] [facility] [id number] [facility] [place] [address] Dec, [facility] [address] [id number] [place] [address] Dec, [facility] [address] [id number] [facility] [place] [address] Dec, [facility] [address] [id number] [facility] [place] [address] Dec, [facility] [address] [id number] [place] [address] Nov, [facility] [address] [id number] [place] [address] Nov, [facility] [address] [id number] [place] [address] Nov, [facility] [address] [id number] [place] [address] Nov, [facility] [address] [id number] [place] [address] Nov, [facility] [address] [id number] [place] [address] Nov, [facility] [address] [id number] [place] [address] Nov, [facility] [address] [facility] [id number] [place] [address] Nov, [facility] [address] [id number] [place] [address] Oct, [facility] [address] [id number] [place] [address] Oct, [facility] [address] [id number] [place] [address] Oct, [facility] [address] [id number] [place] [address] Oct, [facility] [address] [id number] [place] [address] Oct, [facility] [address] [id number] [place] [address] Oct, [facility] [address] [id number] [place] [address] Oct, [facility] [address] [id number] [place] [address] Oct, [facility] [address] [id number] [place] [address] 19 Oct, 2012 [facility] [address] [id number] [place] [address] 18 Oct, 2012 [facility] [address] [id number] [place] [address] 17 Oct, 2012 [facility] [address] [id number] [place] [address] 14 Oct, 2012 [facility] [address] [id number] [place] [address] 07 Oct, 2012 [facility] [address] [id number] [place] [address] September, [facility] [address] [id number] [place] [address] September, [facility] [address] [id number] [place] [address] September, [facility] [address] [id number] [place] [address] Aug, [facility] [address] [id number] [place] [address] 24 Aug, 2012 [facility] [address] [id number] [place] [address] 18 Aug, 2012 [facility] [address] [id number] [place] [address] Aug, [facility] [address] [facility] [id number] [facility] [place] [address] 18 Aug, 2012 [facility] [address] [id number] [place] [address] 08 Aug, 2012 [facility] [address] [id number] [facility] [place] [address] 05 Aug, 2012 [facility] [address] [id number] [facility] [place] [address] Jul, [facility] [address] [id number] [facility] [place] [address] Jul, [facility] [address] [id number] [place] [address] Jul, [facility] [address] [id number] [place] [address] Jul, [facility] [address] [id number] [place] [address] Jul, [facility] [address] [id number] [place] [address] Jul, [facility] [address] [id number] [place] [address] Jul, [facility] [address] [id number] [place] [address] Jul, [facility] [address] [id number] [place] [address] Jul, [facility] [address] [id number] [place] [address] Jul, [facility] [address] [id number] [place] [address] Jul, [facility] [address] [id number] [place] [address] 06 Jul, 2012 [facility] [address] [id number] [place] [address] Jul, [facility] [address] [id number] [place] [address] 24 Jun, 2012 [facility] [address] [id number] [place] [address] Jun, [facility] [address] [id number] [place] [address] Jun, [facility] [address] [id number] [place] [address] 17 Jun, 2012 [facility] [address] [id number] [place] [address] 15 Jun, 2012 [facility] [address] [id number] [place] [address] 14 Jun, 2012 [facility] [address] [id number] [place] [address] Jun, [facility] [address] [id number] [place] [address] May, [facility] [address] [id number] [place] [address] May, [facility] [address] [id number] [place] [address] May, [facility] [address] [id number] [place] [address] May, [facility] [address] [id number] [place] [address] May, [facility] [address] [id number] [place] [address] May, [facility] [address] [id number] [place] [address] May, [facility] [address] [id number] [place] [address] May, [facility] [address] [id number] [place] [address] May, [facility] [address] [id number] [place] [address] May, [facility] [address] [id number] [place] [address] Apr, [facility] [address] [id number] [place] [address] Apr, [facility] [address] [id number] [place] [address] Apr, [facility] [address] [id number] [place] [address] Apr, [facility] [address] [id number] [place] [address] Apr, [facility] [address] [id number] [place] [address] Apr, [facility] [address] [id number] [place] [address] Apr, [facility] [address] [id number] [place] [address] Apr, [facility] [address] [id number] [place] [address] Apr, [facility] [address] [id number] [place] [address] Apr, [facility] [address] [id number] [place] [address] Apr, [facility] [address] [id number] [place] [address] Apr, [facility] [address] [id number] [place] [address] Mar, [facility] [address] [id number] [place] [address] Mar, [facility] [address] [id number] [place] [address] Mar, [facility] [address] [id number] [place] [address] Mar, [facility] [address] [id number] [place] [address] 30 Mar, 2011 [facility] [address] [id number] [place] [address] Mar, 2011 [facility] [address] [id number] [place] [address] Mar, 2011 [facility] [address] [id number] [place] [address] Mar, 2011 [facility] [address] [id number] [place] [address] Mar, 2011 [facility] [address] [id number] [place] [address] Mar, [facility] [address] [id number] [place] [address] Mar, [facility] [address] [id number] [place] [address] Mar, [facility] [address] [id number] [place] [address] Mar, [facility] [address] [id number] [place] [address] Mar, [facility] [address] [id number] [place] [address] Mar, [facility] [address] [id number] [place] [address] Mar, [facility] [address] [id number] [place] [address] 25 Jan, 2011 [facility] [address] [id number] [place] [address] 24 Sep, 2011 [facility] [address] [id number] [place] [address] 22 Jan, 2011 [facility] [address] [id number] [place] [address] 22 Jan, 2011 [facility] [address] [id number] [place] [address] 21 Jan, 2011 [facility] [address] [id number] [place] [address] 18 Jan, 2012 [facility] [address] [id number] [place] [address] 14 Jan, 2012 [facility] [address] [id number] [place] [address] 07 Jan, 2012 [facility] [address] [id number] [place] [address] 15 Dec, 2011 [facility] [address] [id number] [place] [address] Dec, [facility] [address] [id number] [place] [address] Dec, [facility] [address] [id number] [place] [address] Dec, [facility] [address] [id number] [place] [address] Dec, [facility] [address] [id number] [place] [address] Dec, [facility] [address] [id number] [place] [address] Dec, [facility] [address] [id number] [place] [address] Nov, [facility] [address] [id number] [place] [address] Oct, [facility] [address] [id number] [place] [address] Aug, [facility] [address] [id number] [place] [address] Jul, [facility] [address] [id number] [place] [address] 19 Jul, 2011 [facility] [address] [id number] [place] [address] 16 Jul, 2011 [facility] [address] [id number] [place] [address] 14 Jul, 2011 [facility] [address] [facility] [id number] [facility] [place] [address] 07 Jul, 2011 [facility] [address] [id number] [facility] [place] [address] 02 Jul, 2011 [facility] [address] [id number] [facility] [place] [address] Jul, [facility] [address] [id number] [facility] [place] [address] 15 Jul, 2011 [facility] [address] [id number] [facility] [place] [address] 13 Jul, 2011 [facility] [address] [id number] [facility] [place] [address] Jul, [facility] [address] [id number] [place] [address] Jul, [facility] [address] [id number] [place] [address] Jun, [facility] [address] [id number] [facility] [place] [address] Jun, [facility] [address] [id number] [place] [address] Jun, [facility] [address] [id number] [place] [address] Jun, [facility] [address] [id number] [place] [address] Jun, [facility] [address] [id number] [place] [address] Jun, [facility] [address] [id number] [place] [address] Jun, [facility] [address] [id number] [facility] [place] [address] May, [facility] [address] [id number] [facility] [place] [address] May, [facility] [id number] [place] [address] May, [facility] [id number] [place] [address] May, [facility] [id number] [place] [address] May, [facility] [id number] [place] [address] May, [facility] [id number] [place] [address] May, [facility] [id number] [place] [address] May, [facility] [id number] [place] [address] May, [facility] [id number] [place] [address] May, [facility] [id number] [place] [address] Apr, [facility] [id number] [place] [address] Apr, [facility] [id number] [place] [address] Apr, [facility] [id number] [place] [address] Apr, [facility] [id number] [place] [address] Mar, [facility] [id number] [place] [address] Mar, [facility] [id number] [place] [address] Mar, [facility] [id number] [place] [address] Mar, IMMUNIZATIONS No Known Immunizations SOCIAL HISTORY Never Assessed REASON FOR VISIT PLAN OF CARE VITAL SIGNS MEDICATIONS No Known Medications RESULTS No Results PROCEDURES No Known [...]
--- OUTSIDE RECORDS SUMMARY | 2020-01-03 18:23 | XMS REPORT ---
Author Author Pattie Moffett Doctor Organization [facility] Address Unknown Phone Unavailable Care Team Providers Care Complaint Investigations Officer Name Role Phone Migration, Doctor Unavailable Unavailable PROBLEMS Type Condition ICD9-CM Code [id number] Code Onset Dates Condition S tatus SNOMED Code Problem FRANCIS (generalized anxiety disorder) F41.1 Active 86619789 Problem Thoracic disc herniation M51.24 Activ e 569819296 Problem Major depressive disorder in partial remission F32 .4 Active 55929230 Problem Paroxysmal tachycardia I47.9 Active 78016811 Problem Slow transit constipation K59.01 Acti ve 72691368 Problem Constipation, unspecified constipation type K59.00 Active 90268320 Problem Obesity (BMI 30.0-34.9) E66.9 Active [id number] Problem Seizure disorder G40.909 Active 128 676190 Problem High blood pressure I10 Active 07807310 Problem Conversion disorder (or hysterical neurosis, conversion ty pe) F44.9 Active 07221442 Problem Mild episode of recurrent major depressive disorder F33.0 Active 046340902 Problem Restless leg syndrome G25.81 Active 25811502 Problem Other chronic pain G89.29 Active 8 3625566 Problem Mild intermittent asthma without complication J45. 20 Active 383145828 ALLERGIES No Information ENCOUNTERS Encounter Location Date Diagnosis [place] [address] [address] 27 Jul, 2019 Major depressive disorder in partial rem ission F32.4 ; FRANCIS (generalized anxiety disorder) F41.1 ; Restless leg syndrome G25.81 and High blood pressure I10 [facility] [place] [address] [address] 17 Jul, 2019 [facility] [place] [address] [address] Jul, [facility] [place] [address] [address] Jun, [facility] [place] [address] [address] May, [facility] [place] [address] [address] Apr, [facility] [place] [address] [address] Apr, [facility] [place] [address] [address] Mar, [facility] [place] [address] [address] Mar, Major depressive disorder in partial rem ission F32.4 ; FRANCIS (generalized anxiety disorder) F41.1 and Restless leg syndrome G25.81 [facility] [place] [address] [address] Mar, Obesity (BMI 30.0-34.9) E66.9 [place] [address] [address] Jan, [facility] [address] [facility] [id number] [address] [place] [address] Jan, Burn T30.0 [facility] [place] [address] [address] Dec, [facility] [place] [address] [address] Nov, [facility] [place] [address] [address] Nov, [facility] [address] [facility] [place] [id number] Nov, Dental examination Z01.20 [facility] [place] [address] [address] September, [facility] [address] [id number] September, Decay, teeth K02.9 and Dental examinatio n Z01.20 [facility] [address] [facility] [place] [id number] 08 Sep, 2018 Dental examination Z01.20 [place] [address] [address] September, FRANCIS (generalized anxiety disorder) F41.1 ; Major depressive disorder in partial remission F32.4 and Restless leg syndrome G25.81 [place] [address] [address] Aug, [place] [address] [address] Jul, [place] [address] [address] Jul, Encounter to discuss test results Z71.2 [place] [address] [address] Jul, Pelvic pain R10.2 ; Screening for breast cancer Z12.31 and Obesity (BMI 30.0-34.9) E66.9 [place] [address] [address] Jul, Mild intermittent asthma without complic ation J45.20 [place] [address] [address] 12 Jul, 2018 Major depressive disorder in partial rem ission F32.4 and FRANCIS (generalized anxiety disorder) F41.1 [place] [address] [address] Jul, [place] [address] [address] Jun, [place] [address] [address] May, Major depressive disorder in partial rem ission F32.4 ; FRANCIS (generalized anxiety disorder) F41.1 and Restless leg syndrome G25.81 [place] [address] [address] Apr, [place] [address] [place] [id number] [place] [address] Mar, [facility] [address] [facility] [id number] [address] [place] [address] Jan, Pain in thoracic spine M54.6 and Other chronic pain G89.29 [facility] [place] [address] [address] Jan, [facility] [place] [address] [address] Jan, Mild episode of recurrent major depressi ve disorder F33.0 ; FRANCIS (generalized anxiety disorder) F41.1 and Restless leg syndrome G25.81 [facility] [place] [address] [address] Dec, [facility] [place] [address] [address] Dec, Hospital discharge follow-up Z09 [facility] [place] [address] [address] Nov, [facility] [place] [address] [address] Nov, [facility] [place] [address] [address] September, [facility] [place] [address] [address] September, [facility] [place] [address] [address] September, Major depressive disorder in partial rem ission F32.4 ; FRANCIS (generalized anxiety disorder) F41.1 and Restless leg syndrome G25.81 [facility] [place] [address] [address] September, [facility] [place] [address] [address] Jul, [facility] [place] [address] [address] Jul, Dorsalgia, unspecified M54.9 [place] [address] [address] Jul, Mild episode of recurrent major depressi ve disorder F33.0 and FRANCIS (generalized anxiety disorder) F41.1 [place] [address] [address] May, [facility] [address] [place] [id number] [place] [address] May, Dysuria R30.0 and Acute cyst itis with hematuria N30.01 [place] [address] [address] Apr, [place] [address] [address] Apr, Major depressive disorder in partial rem ission F32.4 and FRANCIS (generalized anxiety disorder) F41.1 [place] [address] [address] Mar, Paroxysmal tachycardia I47.9 [place] [address] [address] Mar, Paroxysmal tachycardia I47.9 and Pain of left lower extremity M79.605 [place] [address] [address] Mar, FRANCIS (generalized anxiety disorder) F41.1 and Major depressive disorder in partial remission F32.4 [place] [address] [address] Jan, [place] [address] [address] Jan, [place] [address] [address] Jan, [facility] [address] [facility] [id number] [address] [place] [address] Dec, Constipation, unspecified co nstipation type K59.00 [place] [id number] [address] Dec, [place] [address] [address] Nov, [place] [address] [address] Nov, Major depressive disorder in partial rem ission F32.4 and FRANCIS (generalized anxiety disorder) F41.1 [facility] [address] [place] [id number] [place] [address] Oct, Abdominal pain R10.9 and Slo w transit constipation K59.01 [place] [address] [address] Aug, Major depressive disorder in partial rem ission F32.4 ; FRANCIS (generalized anxiety disorder) F41.1 ; Conversion disorder (or hysterical neurosis, conversion type) F44.9 ; Dorsalgia, unspecified M54.9 and Long-term use of high-risk medication Z79.899 [place] [address] [address] Aug, [place] [address] [address] Jul, Paroxysmal tachycardia I47.9 [place] [address] [address] Jul, Paroxysmal tachycardia I47.9 [place] [address] [address] Jun, [place] [address] [address] Jun, Major depressive disorder in partial rem ission F32.4 ; FRANCIS (generalized anxiety disorder) F41.1 and Conversion disorder (or hysterical neurosis, conversion type) F44.9 [facility] [address] [place] [id number] [place] [address] May, Pelvic pain R10.2 [facility] [address] [place] [id number] [place] [address] 30 Apr, 2016 Gastroenteritis K52.9 [facility] [address] [place] [id number] [place] [address] Apr, Blood in urine R31.9 and Acu te cystitis with hematuria N30.01 [facility] [place] [address] [address] Apr, Major depressive disorder in partial rem ission F32.4 ; FRANCIS (generalized anxiety disorder) F41.1 and Conversion disorder (or hysterical neurosis, conversion type) F44.9 [place] [address] [address] Apr, [place] [address] [address] Apr, Abnormal mammogram R92.8 [place] [address] [address] Mar, [place] [address] [address] Mar, Gastroenteritis K52.9 and Seizure disord er G40.909 [place] [address] [address] Dec, [facility] [address] [place] [address] Dec, Other headache syndrome G44. 89 [place] [address] [address] Dec, [place] [address] [address] Dec, Thoracic disc herniation M51.24 [place] [address] [address] Dec, [place] [address] [address] Nov, Major depressive disorder in partial rem ission F32.4 and FRANCIS (generalized anxiety disorder) F41.1 [facility] [place] [address] [id number] [place] [address] Nov, [facility] [place] [address] [id number] [place] [address] Nov, Dorsalgia, unspecified M54.9 [facility] [place] [address] [place] [id number] [place] [address] Oct, [facility] [place] [address] [place] [id number] [place] [address] September, [facility] [place] [address] [address] Aug, [facility] [place] [address] [place] [id number] [place] [address] Aug, Major depressive disorder in partial rem ission F32.4 and FRANCIS (generalized anxiety disorder) F41.1 [facility] [place] [address] [place] [id number] [place] [address] Aug, [facility] [place] [address] [place] [id number] [place] [address] Jul, Abnormal mammogram R92.8 [facility] [place] [address] [place] [id number] [place] [address] Jul, [facility] [place] [address] [id number] [place] [address] Jul, [facility] [place] [address] [place] [id number] [place] [address] Jul, [facility] [place] [address] [id number] [place] [address] Jul, [facility] [place] [address] [place] [id number] [place] [address] Jul, [facility] [place] [address] [place] [id number] [place] [address] Jul, [facility] [place] [address] [place] [address] [address] Jun, Major depressive disorder in partial rem ission F32.4 and FRANCIS (generalized anxiety disorder) F41.1 [facility] [place] [address] [address] Jun, [facility] [place] [address] [address] May, [facility] [place] [address] [address] Apr, [facility] [place] [address] [address] Mar, Major depressive disorder, recurrent epi sode, moderate F33.1 ; PTSD (post-traumatic stress disorder) F43.10 and FRANCIS (generalized anxiety disorder) F41.1 [facility] [place] [address] [address] Mar, [facility] [place] [address] [address] Mar, [facility] [place] [address] [address] Mar, [facility] [place] [address] [address] Mar, [facility] [place] [address] [address] Jan, [facility] [place] [address] [address] 15 Jan, 2015 [facility] [place] [address] [address] 15 Jan, 2015 [facility] [place] [address] [address] 14 Jan, 2015 Thoracic disc herniation 722.11 [facility] [place] [address] [address] Dec, [facility] [place] [address] [address] Dec, [facility] [address] [place] [id number] [place] [address] Dec, [facility] [address] [place] [id number] [place] [address] Nov, [facility] [address] [place] [id number] [place] [address] Nov, Generalized anxiety disorder 300.02 ; Po sttraumatic stress disorder 309.81 and Major depressive disorder, recurrent episode, moderate 296.32 [facility] [address] [place] [id number] [place] [address] Nov, [facility] [address] [place] [id number] [place] [address] Nov, [facility] [address] [place] [id number] [place] [address] Oct, [facility] [address] [place] [id number] [place] [address] Oct, [facility] [address] [place] [id number] [place] [address] Oct, [facility] [address] [place] [id number] [place] [address] September, [facility] [address] [place] [id number] [place] [address] September, [facility] [address] [place] [id number] [place] [address] Aug, [facility] [address] [place] [id number] [place] [address] Aug, [facility] [address] [place] [id number] [place] [address] Jul, [facility] [address] [place] [id number] [place] [address] Jul, [facility] [address] [place] [id number] [place] [address] Jul, [facility] [address] [place] [id number] [place] [address] 17 Jul, 2014 [facility] [address] [facility] [id number] [place] [address] Jul, [facility] [address] [id number] [facility] [place] [address] Jul, [facility] [address] [id number] [place] [address] Jul, [facility] [address] [id number] [place] [address] Jul, [facility] [address] [id number] [place] [address] Jul, [facility] [address] [id number] [place] [address] Jul, [facility] [address] [id number] [place] [address] Jun, [facility] [address] [id number] [place] [address] Jun, [facility] [address] [id number] [place] [address] Jun, [facility] [address] [id number] [place] [address] May, [facility] [address] [id number] [place] [address] Apr, [facility] [address] [id number] [place] [address] Apr, [facility] [address] [id number] [place] [address] Apr, [facility] [address] [id number] [place] [address] Apr, [facility] [address] [id number] [place] [address] Apr, [facility] [address] [id number] [place] [address] Apr, [facility] [address] [facility] [id number] [place] [address] Apr, [facility] [address] [facility] [id number] [place] [address] Apr, [facility] [address] [facility] [id number] [place] [address] Mar, [facility] [address] [id number] [place] [address] Mar, [facility] [address] [id number] [place] [address] Mar, [facility] [address] [id number] [place] [address] Mar, [facility] [address] [id number] [place] [address] Mar, [facility] [address] [id number] [place] [address] Mar, [facility] [address] [id number] [place] [address] Mar, [facility] [address] [id number] [place] [address] Mar, [facility] [address] [id number] [place] [address] Mar, [facility] [address] [id number] [place] [address] Mar, [facility] [address] [id number] [place] [address] Mar, [facility] [address] [id number] [place] [address] 14 Mar, 2014 [facility] [address] [id number] [place] [address] 14 Mar, 2014 [facility] [address] [id number] [place] [address] Mar, [facility] [address] [id number] [place] [address] Mar, 2013 [facility] [address] [id number] [place] [address] 06 Mar, 2013 [facility] [address] [id number] [place] [address] Mar, 2013 [facility] [address] [id number] [place] [address] Sep, 2013 [facility] [address] [id number] [place] [address] 19 Sep, 2013 [facility] [address] [id number] [place] [address] 09 Sep, 2013 [facility] [address] [id number] [place] [address] 09 Sep, 2013 [facility] [address] [id number] [place] [address] 05 Sep, 2013 [facility] [address] [id number] [place] [address] 05 Sep, 2013 [facility] [address] [id number] [place] [address] 05 Sep, 2013 [facility] [address] [id number] [place] [address] 05 Sep, 2013 [facility] [address] [id number] [place] [address] 03 Sep, 2013 [facility] [address] [id number] [place] [address] Sep, 2013 [facility] [address] [id number] [place] [address] 02 Sep, 2013 [facility] [address] [id number] [place] [address] Sep, 2013 [facility] [address] [id number] [place] [address] Sep, 2013 [facility] [address] [id number] [place] [address] Dec, 2013 [facility] [address] [id number] [place] [address] Dec, [facility] [address] [facility] [id number] [place] [address] Dec, [facility] [address] [id number] [place] [address] Dec, [facility] [address] [id number] [place] [address] Dec, [facility] [address] [id number] [place] [address] Dec, [facility] [address] [facility] [id number] Dec, [facility] [address] [facility] [id number] Dec, [facility] [address] [id number] [place] [address] Dec, [facility] [address] [id number] [place] [address] Dec, [facility] [address] [id number] [place] [address] Dec, [facility] [address] [id number] [place] [address] Dec, [facility] [address] [id number] [place] [address] Nov, [facility] [address] [id number] [place] [address] Nov, [facility] [address] [id number] [place] [address] Nov, [facility] [address] [facility] [id number] [place] [address] Nov, [facility] [address] [id number] [place] [address] Nov, [facility] [address] [id number] [place] [address] Nov, [facility] [address] [id number] [place] [address] Nov, [facility] [address] [facility] [id number] [facility] [place] [address] Nov, [facility] [address] [facility] [id number] [facility] [place] [address] Nov, [facility] [address] [id number] [facility] [place] [address] Nov, [facility] [address] [facility] [id number] [facility] [place] [address] Nov, [facility] [address] [facility] [id number] [facility] [place] [address] Nov, [facility] [address] [facility] [id number] [facility] [place] [address] Nov, [facility] [address] [id number] [facility] [place] [address] Oct, [facility] [address] [id number] [facility] [place] [address] Oct, [facility] [address] [facility] [id number] [facility] [place] [address] Oct, [facility] [address] [id number] [place] [address] Oct, [facility] [address] [id number] [place] [address] Oct, [facility] [address] [id number] [place] [address] Oct, [facility] [address] [facility] [id number] [facility] [place] [address] Oct, [facility] [address] [facility] [id number] [place] [address] Oct, [facility] [address] [facility] [id number] [place] [address] Oct, [facility] [address] [id number] [place] [address] Oct, [facility] [address] [facility] [id number] [facility] [place] [address] Oct, [facility] [address] [id number] [place] [address] Oct, [facility] [address] [facility] [id number] [facility] [place] [address] September, [facility] [address] [id number] [place] [address] September, [facility] [address] [facility] [id number] [facility] [place] [address] September, [facility] [address] [facility] [id number] [facility] [place] [address] September, [facility] [address] [id number] [place] [address] Aug, [facility] [address] [id number] [place] [address] Aug, [facility] [address] [id number] [place] [address] Aug, [facility] [address] [facility] [id number] [facility] [place] [address] Aug, [facility] [address] [id number] [place] [address] Aug, [facility] [address] [id number] [place] [address] Aug, [facility] [address] [id number] [place] [address] Aug, [facility] [address] [facility] [id number] [place] [address] Jul, [facility] [address] [id number] [place] [address] Jul, [facility] [address] [id number] [place] [address] Jul, [facility] [address] [id number] [place] [address] Jul, [facility] [address] [facility] [id number] [place] [address] Jul, [facility] [address] [id number] [place] [address] Jul, [facility] [address] [id number] [place] [address] Jul, [facility] [address] [id number] [place] [address] Jul, [facility] [address] [facility] [id number] [place] [address] Jul, [facility] [address] [id number] [place] [address] Jul, [facility] [address] [id number] [place] [address] Jul, [facility] [address] [id number] [place] [address] Jul, [facility] [address] [id number] [place] [address] Jul, [facility] [address] [id number] [place] [address] Jul, [facility] [address] [id number] [place] [address] Jul, [facility] [address] [id number] [place] [address] Jul, [facility] [address] [id number] [place] [address] Jul, [facility] [address] [id number] [place] [address] Jul, [facility] [address] [id number] [place] [address] Jun, [facility] [address] [id number] [place] [address] Jun, [facility] [address] [id number] [place] [address] 15 Jun, 2013 [facility] [address] [id number] [place] [address] 15 Jun, 2013 [facility] [address] [id number] [place] [address] 14 Jun, 2013 [facility] [address] [id number] [place] [address] 14 Jun, 2013 [facility] [address] [id number] [place] [address] 14 Jun, 2013 [facility] [address] [id number] [place] [address] 14 Jun, 2013 [facility] [address] [id number] [place] [address] 14 Jun, 2013 [facility] [address] [id number] [place] [address] 14 Jun, 2013 [facility] [address] [id number] [place] [address] 27 May, 2013 [facility] [address] [id number] [place] [address] 27 May, 2013 [facility] [address] [id number] [place] [address] 26 May, 2013 [facility] [address] [id number] [place] [address] 19 May, 2013 [facility] [address] [id number] [place] [address] 19 May, 2013 [facility] [address] [id number] [place] [address] 16 May, 2013 [facility] [address] [id number] [place] [address] 16 May, 2013 [facility] [address] [id number] [place] [address] 16 May, 2013 [facility] [address] [id number] [place] [address] 16 May, 2013 [facility] [address] [id number] [place] [address] 13 May, 2013 [facility] [address] [id number] [place] [address] 13 May, 2013 [facility] [address] [id number] [place] [address] 11 May, 2013 [facility] [address] [id number] [place] [address] 20 Apr, 2013 [facility] [address] [id number] [place] [address] 18 Apr, 2013 [facility] [address] [id number] [place] [address] 18 Apr, 2013 [facility] [address] [id number] [place] [address] Apr, [facility] [id number] [place] [address] 13 Apr, 2013 [facility] [address] [id number] [place] [address] 08 Apr, 2013 [facility] [address] [id number] [place] [address] 08 Apr, 2013 [facility] [address] [id number] [place] [address] 07 Apr, 2013 [facility] [address] [id number] [place] [address] 07 Apr, 2013 [facility] [address] [id number] [place] [address] 07 Apr, 2013 [facility] [address] [id number] [place] [address] 07 Apr, 2013 [facility] [address] [id number] [place] [address] Mar, [facility] [address] [id number] [place] [address] Mar, [facility] [address] [id number] [place] [address] Mar, [facility] [address] [facility] [id number] [place] [address] Mar, [facility] [address] [facility] [id number] [place] [address] Mar, [facility] [address] [id number] [place] [address] Mar, [facility] [address] [id number] [place] [address] Mar, [facility] [address] [facility] [id number] [place] [address] Mar, [facility] [address] [id number] [place] [address] Mar, [facility] [address] [id number] [place] [address] Mar, [facility] [address] [id number] [place] [address] 15 Mar, 2013 [facility] [address] [id number] [place] [address] Mar, [facility] [address] [id number] [place] [address] 30 Jan, 2013 [facility] [address] [id number] [place] [address] 25 Jan, 2013 [facility] [address] [id number] [place] [address] 20 Jan, 2013 [facility] [address] [id number] [place] [address] Jan, [facility] [address] [id number] [place] [address] Dec, [facility] [address] [id number] [place] [address] Dec, [facility] [address] [id number] [place] [address] Dec, [facility] [address] [id number] [facility] [place] [address] Dec, [facility] [address] [id number] [facility] [place] [address] Dec, [facility] [address] [facility] [id number] [facility] [place] [address] Dec, [facility] [address] [id number] [place] [address] Dec, [facility] [address] [id number] [facility] [place] [address] Dec, [facility] [address] [id number] [facility] [place] [address] Dec, [facility] [address] [id number] [place] [address] Nov, [facility] [address] [id number] [place] [address] Nov, [facility] [address] [id number] [place] [address] Nov, [facility] [address] [id number] [place] [address] Nov, [facility] [address] [id number] [place] [address] Nov, [facility] [address] [id number] [place] [address] Nov, [facility] [address] [id number] [place] [address] Nov, [facility] [address] [facility] [id number] [place] [address] Nov, [facility] [address] [id number] [place] [address] Oct, [facility] [address] [id number] [place] [address] Oct, [facility] [address] [id number] [place] [address] Oct, [facility] [address] [id number] [place] [address] Oct, [facility] [address] [id number] [place] [address] Oct, [facility] [address] [id number] [place] [address] Oct, [facility] [address] [id number] [place] [address] Oct, [facility] [address] [id number] [place] [address] Oct, [facility] [address] [id number] [place] [address] 19 Oct, 2012 [facility] [address] [id number] [place] [address] 18 Oct, 2012 [facility] [address] [id number] [place] [address] 17 Oct, 2012 [facility] [address] [id number] [place] [address] 14 Oct, 2012 [facility] [address] [id number] [place] [address] 07 Oct, 2012 [facility] [address] [id number] [place] [address] September, [facility] [address] [id number] [place] [address] September, [facility] [address] [id number] [place] [address] September, [facility] [address] [id number] [place] [address] Aug, [facility] [address] [id number] [place] [address] 24 Aug, 2012 [facility] [address] [id number] [place] [address] 18 Aug, 2012 [facility] [address] [id number] [place] [address] Aug, [facility] [address] [facility] [id number] [facility] [place] [address] 18 Aug, 2012 [facility] [address] [id number] [place] [address] 08 Aug, 2012 [facility] [address] [id number] [facility] [place] [address] 05 Aug, 2012 [facility] [address] [id number] [facility] [place] [address] Jul, [facility] [address] [id number] [facility] [place] [address] Jul, [facility] [address] [id number] [place] [address] Jul, [facility] [address] [id number] [place] [address] Jul, [facility] [address] [id number] [place] [address] Jul, [facility] [address] [id number] [place] [address] Jul, [facility] [address] [id number] [place] [address] Jul, [facility] [address] [id number] [place] [address] Jul, [facility] [address] [id number] [place] [address] Jul, [facility] [address] [id number] [place] [address] Jul, [facility] [address] [id number] [place] [address] Jul, [facility] [address] [id number] [place] [address] 06 Jul, 2012 [facility] [address] [id number] [place] [address] Jul, [facility] [address] [id number] [place] [address] 24 Jun, 2012 [facility] [address] [id number] [place] [address] Jun, [facility] [address] [id number] [place] [address] Jun, [facility] [address] [id number] [place] [address] 17 Jun, 2012 [facility] [address] [id number] [place] [address] 15 Jun, 2012 [facility] [address] [id number] [place] [address] 14 Jun, 2012 [facility] [address] [id number] [place] [address] Jun, [facility] [address] [id number] [place] [address] May, [facility] [address] [id number] [place] [address] May, [facility] [address] [id number] [place] [address] May, [facility] [address] [id number] [place] [address] May, [facility] [address] [id number] [place] [address] May, [facility] [address] [id number] [place] [address] May, [facility] [address] [id number] [place] [address] May, [facility] [address] [id number] [place] [address] May, [facility] [address] [id number] [place] [address] May, [facility] [address] [id number] [place] [address] May, [facility] [address] [id number] [place] [address] Apr, [facility] [address] [id number] [place] [address] Apr, [facility] [address] [id number] [place] [address] Apr, [facility] [address] [id number] [place] [address] Apr, [facility] [address] [id number] [place] [address] Apr, [facility] [address] [id number] [place] [address] Apr, [facility] [address] [id number] [place] [address] Apr, [facility] [address] [id number] [place] [address] Apr, [facility] [address] [id number] [place] [address] Apr, [facility] [address] [id number] [place] [address] Apr, [facility] [address] [id number] [place] [address] Apr, [facility] [address] [id number] [place] [address] Apr, [facility] [address] [id number] [place] [address] Mar, [facility] [address] [id number] [place] [address] Mar, [facility] [address] [id number] [place] [address] Mar, [facility] [address] [id number] [place] [address] Mar, [facility] [address] [id number] [place] [address] 30 Mar, 2011 [facility] [address] [id number] [place] [address] Mar, 2011 [facility] [address] [id number] [place] [address] Mar, 2011 [facility] [address] [id number] [place] [address] Mar, 2011 [facility] [address] [id number] [place] [address] Mar, 2011 [facility] [address] [id number] [place] [address] Mar, [facility] [address] [id number] [place] [address] Mar, [facility] [address] [id number] [place] [address] Mar, [facility] [address] [id number] [place] [address] Mar, [facility] [address] [id number] [place] [address] Mar, [facility] [address] [id number] [place] [address] Mar, [facility] [address] [id number] [place] [address] Mar, [facility] [address] [id number] [place] [address] 25 Jan, 2011 [facility] [address] [id number] [place] [address] 24 Sep, 2011 [facility] [address] [id number] [place] [address] 22 Jan, 2011 [facility] [address] [id number] [place] [address] 22 Jan, 2011 [facility] [address] [id number] [place] [address] 21 Jan, 2011 [facility] [address] [id number] [place] [address] 18 Jan, 2012 [facility] [address] [id number] [place] [address] 14 Jan, 2012 [facility] [address] [id number] [place] [address] 07 Jan, 2012 [facility] [address] [id number] [place] [address] 15 Dec, 2011 [facility] [address] [id number] [place] [address] Dec, [facility] [address] [id number] [place] [address] Dec, [facility] [address] [id number] [place] [address] Dec, [facility] [address] [id number] [place] [address] Dec, [facility] [address] [id number] [place] [address] Dec, [facility] [address] [id number] [place] [address] Dec, [facility] [address] [id number] [place] [address] Nov, [facility] [address] [id number] [place] [address] Oct, [facility] [address] [id number] [place] [address] Aug, [facility] [address] [id number] [place] [address] Jul, [facility] [address] [id number] [place] [address] 19 Jul, 2011 [facility] [address] [id number] [place] [address] 16 Jul, 2011 [facility] [address] [id number] [place] [address] 14 Jul, 2011 [facility] [address] [facility] [id number] [facility] [place] [address] 07 Jul, 2011 [facility] [address] [id number] [facility] [place] [address] 02 Jul, 2011 [facility] [address] [id number] [facility] [place] [address] Jul, [facility] [address] [id number] [facility] [place] [address] 15 Jul, 2011 [facility] [address] [id number] [facility] [place] [address] 13 Jul, 2011 [facility] [address] [id number] [facility] [place] [address] Jul, [facility] [address] [id number] [place] [address] Jul, [facility] [address] [id number] [place] [address] Jun, [facility] [address] [id number] [facility] [place] [address] Jun, [facility] [address] [id number] [place] [address] Jun, [facility] [address] [id number] [place] [address] Jun, [facility] [address] [id number] [place] [address] Jun, [facility] [address] [id number] [place] [address] Jun, [facility] [address] [id number] [place] [address] Jun, [facility] [address] [id number] [facility] [place] [place] [id number] May, [facility] [address] [id number] [facility] [place] [address] May, [facility] [address] [id number] [place] [address] May, [facility] [place] [address] [id number] [place] [address] May, [facility] [place] [address] [id number] [place] [address] May, [facility] [place] [address] [id number] [place] [address] May, [facility] [place] [address] [id number] [place] [address] May, [facility] [place] [address] [id number] [place] [address] May, [facility] [place] [address] [id number] [place] [address] May, [facility] [place] [address] [id number] [place] [address] May, [facility] [place] [address] [id number] [place] [address] Apr, [facility] [place] [address] [id number] [place] [address] Apr, [facility] [place] [address] [id number] [place] [address] Apr, [facility] [place] [address] [id number] [place] [address] Apr, [facility] [place] [address] [id number] [place] [address] Mar, [facility] [place] [address] [id number] [place] [address] Mar, [facility] [place] [id number] [place] [address] Mar, [facility] [place] [address] [id number] [place] [address] Mar, IMMUNIZATIONS No Known Immunizations SOCIAL HISTORY [...]
--- OUTSIDE RECORDS SUMMARY | 2020-01-03 18:23 | XMS REPORT ---
Author Author Pattie VIEIRA Organization [facility] Address [address] [place] [address] Care Team Providers Care Special Education Assistant Name Role Phone REYNALDO VIEIRA Unavailable PROBLEMS Type Condition ICD9-CM Code YRH01-ED Code Onset Dates Condition S tatus SNOMED Code Problem FRANCIS (generalized anxiety disorder) F41.1 Active 74982695 Problem Thoracic disc herniation M51.24 Activ e 494030317 Problem Major depressive disorder in partial remission F32 .4 Active 41449765 Problem Paroxysmal tachycardia I47.9 Active 74913093 Problem Slow transit constipation K59.01 Acti ve 16236911 Problem Constipation, unspecified constipation type K59.00 Active 63673533 Problem Obesity (BMI 30.0-34.9) E66.9 Active 525016909138492 Problem Seizure disorder G40.909 Active 128 503504 Problem High blood pressure I10 Active 54107188 Problem Conversion disorder (or hysterical neurosis, conversion ty pe) F44.9 Active 49594446 Problem Mild episode of recurrent major depressive disorder F33.0 Active 484110172 Problem Restless leg syndrome G25.81 Active 62426357 Problem Other chronic pain G89.29 Active 8 1304526 Problem Mild intermittent asthma without complication J45. 20 Active 751134843 ALLERGIES No Information ENCOUNTERS Encounter Location Date Diagnosis [facility] [id number] [place] [address] 27 Jul, 2019 Major depressive disorder in partial rem ission F32.4 ; FRANCIS (generalized anxiety disorder) F41.1 ; Restless leg syndrome G25.81 and High blood pressure I10 [facility] [id number] [place] [address] Jul, [facility] [id number] [place] [address] Jul, [facility] [id number] [place] [address] Jun, [facility] [address] [address] May, [facility] [address] [address] Apr, [facility] [address] [address] Apr, [facility] [address] [address] Mar, [facility] [address] [address] Mar, Major depressive disorder in partial rem ission F32.4 ; FRANCIS (generalized anxiety disorder) F41.1 and Restless leg syndrome G25.81 [facility] [address] [address] Mar, Obesity (BMI 30.0-34.9) E66.9 [facility] [id number] [place] [address] Jan, [facility] [address] [facility] [id number] [address] [place] [address] Jan, Burn T30.0 [facility] [id number] [place] [address] Dec, [facility] [address] [address] Nov, [facility] [id number] [place] [address] Nov, [facility] [id number] [place] [id number] Nov, Dental examination Z01.20 [facility] [id number] [place] [address] September, [facility] [id number] [place] [id number] 20 May, 2019 Decay, teeth K02.9 and Dental examinatio n Z01.20 [facility] [id number] [place] [id number] September, Dental examination Z01.20 [facility] [address] [address] September, FRANCIS (generalized anxiety disorder) F41.1 ; Major depressive disorder in partial remission F32.4 and Restless leg syndrome G25.81 [facility] [address] [address] Aug, [facility] [address] [address] Jul, [facility] [address] [address] Jul, Encounter to discuss test results Z71.2 [facility] [address] [address] Jul, Pelvic pain R10.2 ; Screening for breast cancer Z12.31 and Obesity (BMI 30.0-34.9) E66.9 [facility] [address] [address] Jul, Mild intermittent asthma without complic ation J45.20 [place] [address] [address] Jul, Major depressive disorder in partial rem ission F32.4 and FRANCIS (generalized anxiety disorder) F41.1 [facility] [address] [address] Jul, [facility] [address] [address] Jun, [facility] [address] [address] May, Major depressive disorder in partial rem ission F32.4 ; FRANCIS (generalized anxiety disorder) F41.1 and Restless leg syndrome G25.81 [facility] [address] [address] Apr, [facility] [address] [address] Mar, [facility] [address] [facility] [id number] [address] [place] [address] 21 Jan, 2018 Pain in thoracic spine M54.6 and Other chronic pain G89.29 [facility] [address] [address] 14 Jan, 2018 [facility] [address] [address] 11 Jan, 2018 Mild episode of recurrent major depressi ve disorder F33.0 ; FRANCIS (generalized anxiety disorder) F41.1 and Restless leg syndrome G25.81 [facility] [address] [address] Dec, [facility] [address] [address] Dec, Hospital discharge follow-up Z09 [facility] [address] [address] Nov, [facility] [address] [address] Nov, [facility] [address] [address] September, [facility] [address] [address] September, [facility] [address] [address] September, Major depressive disorder in partial rem ission F32.4 ; FRANCIS (generalized anxiety disorder) F41.1 and Restless leg syndrome G25.81 [facility] [address] [address] September, [facility] [address] [address] Jul, [place] [address] [address] Jul, Dorsalgia, unspecified M54.9 [place] [address] [address] Jul, Mild episode of recurrent major depressi ve disorder F33.0 and FRANCIS (generalized anxiety disorder) F41.1 [place] [address] [address] May, [facility] [address] [facility] [id number] [address] [place] [address] May, Dysuria R30.0 and Acute cyst itis with hematuria N30.01 [place] [address] [address] Apr, [place] [address] [address] Apr, Major depressive disorder in partial rem ission F32.4 and FRANCIS (generalized anxiety disorder) F41.1 [place] [address] [address] Mar, Paroxysmal tachycardia I47.9 [place] [address] [address] Mar, Paroxysmal tachycardia I47.9 and Pain of left lower extremity M79.605 [place] [address] [address] Mar, FRANCIS (generalized anxiety disorder) F41.1 and Major depressive disorder in partial remission F32.4 [place] [address] [address] Jan, [place] [address] [address] 14 Jan, 2017 [place] [address] [address] 13 Jan, 2017 [facility] [address] [facility] [id number] [address] [place] [address] Dec, Constipation, unspecified co nstipation type K59.00 [place] [address] [address] Dec, [place] [address] [address] Nov, [place] [address] [address] Nov, Major depressive disorder in partial rem ission F32.4 and FRANCIS (generalized anxiety disorder) F41.1 [facility] [address] [address] Oct, Abdominal pain R10.9 and Slo w transit constipation K59.01 [place] [address] [address] Aug, Major depressive disorder in partial rem ission F32.4 ; FRANCIS (generalized anxiety disorder) F41.1 ; Conversion disorder (or hysterical neurosis, conversion type) F44.9 ; Dorsalgia, unspecified M54.9 and Long-term use of high-risk medication Z79.899 [place] [address] [address] Aug, [place] [address] [address] Jul, Paroxysmal tachycardia I47.9 [place] [address] [address] Jul, Paroxysmal tachycardia I47.9 [place] [address] [address] Jun, [place] [address] [address] Jun, Major depressive disorder in partial rem ission F32.4 ; FRANCIS (generalized anxiety disorder) F41.1 and Conversion disorder (or hysterical neurosis, conversion type) F44.9 [facility] [address] [place] [address] May, Pelvic pain R10.2 [facility] [address] [address] Apr, Gastroenteritis K52.[address] [facility] [address] [address] Apr, Blood in urine R31.9 and Acu te cystitis with hematuria N30.01 [facility] [address] [address] Apr, Major depressive disorder in partial rem ission F32.4 ; FRANCIS (generalized anxiety disorder) F41.1 and Conversion disorder (or hysterical neurosis, conversion type) F44.9 [place] [address] [address] Apr, [place] [address] [address] Apr, Abnormal mammogram R92.8 [place] [address] [address] Mar, [place] [address] [address] Mar, Gastroenteritis K52.9 and Seizure disord er G40.909 [place] [address] [address] Dec, [facility] [address] [address] Dec, Other headache syndrome G44. 89 [place] [address] [address] Dec, [place] [address] [address] Dec, Thoracic disc herniation M51.24 [place] [address] [address] Dec, [facility] [id number] [place] [address] Nov, Major depressive disorder in partial rem ission F32.4 and FRANCIS (generalized anxiety disorder) F41.1 [facility] [id number] [place] [address] Nov, [facility] [id number] [place] [address] Nov, Dorsalgia, unspecified M54.9 [facility] [id number] [place] [address] Oct, [facility] [id number] [place] [address] September, [facility] [id number] [place] [address] Aug, [facility] [id number] [place] [address] Aug, Major depressive disorder in partial rem ission F32.4 and FRANCIS (generalized anxiety disorder) F41.1 [facility] [id number] [place] [address] Aug, [facility] [id number] [place] [address] Jul, Abnormal mammogram R92.8 [facility] [id number] [place] [address] Jul, [facility] [id number] [place] [address] Jul, [facility] [id number] [place] [address] Jul, [facility] [id number] [place] [address] Jul, [facility] [id number] [place] [address] Jul, [facility] [id number] [place] [address] Jul, [facility] [address] [address] Jun, Major depressive disorder in partial rem ission F32.4 and FRANCIS (generalized anxiety disorder) F41.1 [facility] [address] [address] Jun, [facility] [address] [address] May, [facility] [address] [address] Apr, [facility] [address] [address] Mar, Major depressive disorder, recurrent epi sode, moderate F33.1 ; PTSD (post-traumatic stress disorder) F43.10 and FRANCIS (generalized anxiety disorder) F41.1 [facility] [address] [address] Mar, [facility] [address] [address] Mar, [facility] [address] [address] Mar, [facility] [address] [address] Mar, [facility] [address] [address] Jan, [facility] [address] [address] 15 Jan, 2015 [facility] [address] [address] 15 Jan, 2015 [facility] [address] [address] 14 Jan, 2015 Thoracic disc herniation 722.11 [facility] [address] [address] Dec, [facility] [id number] [place] [address] Dec, [facility] [id number] [place] [address] Dec, [facility] [id number] [place] [address] Nov, [facility] [id number] [place] [address] Nov, Generalized anxiety disorder 300.02 ; Po sttraumatic stress disorder 309.81 and Major depressive disorder, recurrent episode, moderate 296.32 [facility] [id number] [place] [address] Nov, [facility] [id number] [place] [address] Nov, [facility] [id number] [place] [address] Oct, [facility] [id number] [place] [address] Oct, [facility] [id number] [place] [address] Oct, [facility] [id number] [place] [address] September, [facility] [id number] [place] [address] September, [facility] [id number] [place] [address] Aug, [facility] [id number] [place] [address] Aug, [facility] [id number] [place] [address] Jul, [facility] [id number] [place] [address] Jul, [facility] [id number] [place] [address] Jul, [facility] [id number] [place] [address] 17 Jul, 2014 [facility] [id number] [place] [address] 16 Jul, 2014 [facility] [id number] [place] [address] 16 Jul, 2014 [facility] [id number] [place] [address] Jul, [facility] [id number] [place] [address] Jul, [facility] [id number] [place] [address] Jul, [facility] [id number] [place] [address] Jul, [facility] [id number] [place] [address] Jun, [facility] [id number] [place] [address] Jun, [facility] [id number] [place] [address] Jun, [facility] [id number] [place] [address] May, [facility] [id number] [place] [address] Apr, [facility] [id number] [place] [address] Apr, [facility] [id number] [place] [address] Apr, [facility] [id number] [place] [address] Apr, [facility] [id number] [place] [address] Apr, [facility] [id number] [place] [address] 07 Apr, 2014 [facility] [address] [facility] [id number] [place] [address] Apr, [facility] [id number] [place] [address] Apr, [facility] [id number] [place] [address] Mar, [facility] [id number] [place] [address] Mar, [facility] [id number] [place] [address] Mar, [facility] [id number] [place] [address] Mar, [facility] [id number] [place] [address] Mar, [facility] [id number] [place] [address] Mar, [facility] [id number] [place] [address] Mar, [facility] [id number] [place] [address] Mar, [facility] [id number] [place] [address] Mar, [facility] [id number] [place] [address] Mar, [facility] [address] [facility] [id number] [place] [address] 17 Mar, 2014 [facility] [id number] [place] [address] 14 Mar, 2014 [facility] [address] [id number] [place] [address] 14 Mar, 2014 [facility] [address] [id number] [place] [address] Mar, [facility] [address] [facility] [address] [id number] [place] [address] 07 Mar, 2013 [facility] [address] [id number] [place] [address] 06 Mar, 2013 [facility] [address] [facility] [address] [id number] [place] [address] Mar, 2013 [facility] [address] [facility] [id number] [place] [address] Sep, 2013 [facility] [address] [facility] [id number] [place] [address] 19 Sep, 2013 [facility] [address] [facility] [id number] [place] [address] 09 Sep, 2013 [facility] [address] [facility] [id number] [place] [address] 09 Sep, 2013 [facility] [address] [facility] [id number] [place] [address] 05 Sep, 2013 [facility] [address] [facility] [id number] [place] [address] 05 Sep, 2013 [facility] [address] [id number] [place] [address] 05 Sep, 2013 [facility] [address] [id number] [place] [address] 05 Sep, 2013 [facility] [address] [facility] [id number] [place] [address] 03 Sep, 2013 [facility] [address] [id number] [place] [address] Sep, 2013 [facility] [address] [id number] [place] [address] 02 Sep, 2013 [facility] [address] [id number] [place] [address] Sep, 2013 [facility] [address] [id number] [place] [address] Sep, 2013 [facility] [address] [id number] [place] [address] Dec, [facility] [address] [facility] [id number] [place] [address] Dec, [facility] [address] [id number] [place] [address] Dec, [facility] [address] [id number] [place] [address] Dec, [facility] [address] [id number] [place] [address] Dec, [facility] [address] [id number] [place] [address] Dec, [facility] [address] [facility] [id number] Dec, [facility] [address] [facility] [id number] Dec, [facility] [address] [id number] [place] [address] Dec, [facility] [address] [id number] [place] [address] Dec, [facility] [address] [id number] [place] [address] Dec, [facility] [address] [id number] [place] [address] Dec, [facility] [address] [id number] [place] [address] Nov, [facility] [address] [id number] [place] [address] Nov, [facility] [address] [facility] [id number] [place] [address] Nov, [facility] [address] [id number] [place] [address] Nov, [facility] [address] [id number] [place] [address] Nov, [facility] [address] [id number] [place] [address] Nov, [facility] [address] [facility] [id number] [place] [address] Nov, [facility] [facility] [address] [facility] [id number] [place] [address] Nov, [facility] [place] [facility] [address] [facility] [id number] [place] [address] Nov, [facility] [place] [facility] [address] [facility] [id number] [place] [address] Nov, [facility] [place] [facility] [address] [facility] [id number] [place] [address] Nov, [facility] [place] [facility] [id number] [place] [address] Nov, [facility] [place] [facility] [id number] [place] [address] Nov, [facility] [place] [facility] [id number] [place] [address] Oct, [facility] [place] [facility] [address] [facility] [id number] [place] [address] Oct, [facility] [place] [facility] [id number] [place] [address] Oct, [facility] [place] [facility] [id number] [place] [address] Oct, [facility] [place] [facility] [id number] [place] [address] Oct, [facility] [place] [facility] [address] [facility] [id number] [place] [address] Oct, [facility] [place] [facility] [address] [facility] [id number] [place] [address] Oct, [facility] [place] [facility] [address] [facility] [id number] [place] [address] Oct, [facility] [place] [facility] [id number] [place] [address] Oct, [facility] [place] [facility] [id number] [place] [address] Oct, [facility] [place] [facility] [address] [facility] [id number] [facility] [place] [address] Oct, [facility] [place] [facility] [address] [facility] [id number] [place] [address] Oct, [facility] [place] [facility] [id number] [place] [address] September, [facility] [place] [facility] [address] [facility] [id number] [place] [address] September, [facility] [place] [facility] [address] [facility] [id number] [place] [address] September, [facility] [place] [facility] [address] [facility] [id number] [place] [address] September, [facility] [place] [facility] [id number] [facility] [place] [address] Aug, [facility] [place] [facility] [id number] [place] [address] Aug, [facility] [place] [facility] [address] [facility] [id number] [place] [address] Aug, [facility] [place] [facility] [id number] [place] [address] Aug, [facility] [place] [facility] [id number] [facility] [place] [address] Aug, [facility] [place] [facility] [id number] [facility] [place] [address] Aug, [facility] [place] [facility] [address] [facility] [id number] [place] [address] Aug, [facility] [place] [facility] [id number] [facility] [place] [address] Jul, [facility] [place] [facility] [address] [facility] [id number] [place] [address] Jul, [facility] [place] [facility] [id number] [facility] [place] [address] Jul, [facility] [place] [facility] [address] [facility] [id number] [place] [address] 28 Jul, 2013 [facility] [place] [facility] [address] [facility] [id number] [place] [address] Jul, [facility] [place] [facility] [address] [id number] [place] [address] Jul, [facility] [place] [facility] [address] [id number] [place] [address] Jul, [facility] [place] [facility] [address] [id number] [place] [address] Jul, [facility] [place] [facility] [address] [id number] [place] [address] Jul, [facility] [place] [facility] [address] [id number] [place] [address] Jul, [facility] [place] [facility] [address] [id number] [place] [address] Jul, [facility] [place] [facility] [address] [id number] [place] [address] Jul, [facility] [place] [facility] [address] [id number] [place] [address] Jul, [facility] [place] [facility] [address] [id number] [place] [address] Jul, [facility] [place] [facility] [address] [id number] [place] [address] Jul, [facility] [place] [facility] [address] [id number] [place] [address] Jul, [facility] [place] [facility] [address] [id number] [place] [address] Jul, [facility] [place] [facility] [address] [id number] [place] [address] Jul, [facility] [place] [facility] [address] [id number] [place] [address] Jun, [facility] [place] [facility] [address] [id number] [place] [address] 31 Jun, 2013 [facility] [place] [facility] [address] [facility] [id number] [place] [address] 15 Jun, 2013 [facility] [place] [facility] [address] [id number] [place] [address] 15 Jun, 2013 [facility] [place] [facility] [address] [id number] [place] [address] 14 Jun, 2013 [facility] [place] [facility] [address] [id number] [place] [address] 14 Jun, 2013 [facility] [place] [facility] [address] [facility] [id number] [place] [address] 14 Jun, 2013 [facility] [place] [facility] [address] [id number] [place] [address] 14 Jun, 2013 [facility] [place] [facility] [address] [id number] [place] [address] 14 Jun, 2013 [facility] [place] [facility] [address] [id number] [place] [address] 14 Jun, 2013 [facility] [place] [facility] [address] [id number] [place] [address] 27 May, 2013 [facility] [place] [facility] [address] [id number] [place] [address] 27 May, 2013 [facility] [place] [facility] [address] [id number] [place] [address] 26 May, 2013 [facility] [place] [facility] [address] [id number] [place] [address] 19 May, 2013 [facility] [place] [facility] [address] [id number] [place] [address] 19 May, 2013 [facility] [place] [facility] [address] [id number] [place] [address] 16 May, 2013 [facility] [place] [facility] [address] [id number] [place] [address] 16 May, 2013 [facility] [place] [facility] [address] [id number] [place] [address] 16 May, 2013 [facility] [place] [facility] [address] [id number] [place] [address] 16 May, 2012 [facility] [place] [facility] [address] [id number] [place] [address] 13 May, 2013 [facility] [place] [facility] [address] [id number] [place] [address] 13 May, 2013 [facility] [place] [facility] [address] [id number] [place] [address] 11 May, 2013 [facility] [place] [facility] [address] [id number] [place] [address] 20 Apr, 2013 [facility] [place] [facility] [address] [id number] [place] [address] 18 Apr, 2013 [facility] [place] [facility] [address] [id number] [place] [address] 18 Apr, 2013 [facility] [place] [facility] [address] [id number] [place] [address] Apr, [facility] [place] [facility] [address] [id number] [place] [address] Apr, [facility] [place] [facility] [address] [id number] [place] [address] 08 Apr, 2013 [facility] [place] [facility] [address] [id number] [place] [address] 08 Apr, 2013 [facility] [place] [facility] [address] [id number] [place] [address] Apr, [facility] [place] [facility] [address] [id number] [place] [address] 07 Apr, 2013 [facility] [place] [facility] [address] [id number] [place] [address] 07 Apr, 2013 [facility] [place] [facility] [id number] [place] [address] Apr, [facility] [place] [facility] [address] [id number] [place] [address] Mar, [facility] [place] [facility] [address] [id number] [place] [address] Mar, [facility] [place] [facility] [address] [facility] [id number] [place] [address] Mar, [facility] [place] [facility] [address] [id number] [place] [address] Mar, [facility] [place] [facility] [address] [id number] [place] [address] Mar, 2012 [facility] [place] [facility] [address] [id number] [place] [address] Mar, [facility] [place] [facility] [address] [facility] [id number] [place] [address] Mar, [facility] [place] [facility] [address] [id number] [place] [address] Mar, [facility] [place] [facility] [address] [id number] [place] [address] Mar, [facility] [place] [facility] [address] [id number] [place] [address] Mar, [facility] [place] [facility] [address] [id number] [place] [address] 15 Mar, 2013 [facility] [place] [facility] [address] [id number] [place] [address] Mar, [facility] [place] [facility] [address] [id number] [place] [address] 30 Jan, 2012 [facility] [place] [facility] [address] [id number] [place] [address] 25 Jan, 2013 [facility] [place] [facility] [address] [id number] [place] [address] 20 Jan, 2012 [facility] [place] [facility] [address] [id number] [place] [address] 10 Jan, 2013 [facility] [place] [facility] [address] [id number] [place] [address] Dec, [facility] [place] [facility] [address] [id number] [place] [address] Dec, [facility] [place] [facility] [address] [id number] [place] [address] Dec, [facility] [place] [facility] [address] [id number] [place] [address] Dec, [facility] [place] [facility] [address] [facility] [id number] [place] [address] Dec, [facility] [place] [facility] [address] [id number] [place] [address] Dec, [facility] [place] [facility] [address] [facility] [id number] [place] [address] Dec, [facility] [place] [facility] [address] [facility] [id number] [place] [address] Dec, [facility] [place] [facility] [address] [facility] [id number] [place] [address] Dec, [facility] [place] [facility] [address] [id number] [facility] [place] [address] Nov, [facility] [place] [facility] [address] [id number] [facility] [place] [address] Nov, [facility] [place] [facility] [address] [facility] [id number] [facility] [place] [address] Nov, [facility] [place] [facility] [address] [id number] [facility] [place] [address] Nov, [facility] [place] [facility] [address] [id number] [facility] [place] [address] Nov, [facility] [place] [facility] [address] [id number] [facility] [place] [address] Nov, [facility] [place] [facility] [address] [facility] [id number] [place] [address] Nov, [facility] [place] [facility] [address] [id number] [facility] [place] [address] Nov, [facility] [place] [facility] [address] [facility] [id number] [facility] [place] [address] Oct, [facility] [place] [facility] [address] [id number] [facility] [place] [address] Oct, [facility] [place] [facility] [address] [id number] [facility] [place] [address] 26 Oct, 2012 [facility] [place] [facility] [address] [facility] [id number] [place] [address] 25 Oct, 2012 [facility] [place] [facility] [address] [facility] [id number] [place] [address] Oct, [facility] [place] [facility] [address] [id number] [place] [address] Oct, [facility] [place] [facility] [address] [id number] [place] [address] Oct, [facility] [place] [facility] [address] [id number] [place] [address] 20 Oct, 2012 [facility] [place] [facility] [address] [id number] [place] [address] 19 Oct, 2012 [facility] [place] [facility] [address] [id number] [place] [address] 18 Oct, 2012 [facility] [place] [facility] [address] [id number] [place] [address] 17 Oct, 2012 [facility] [place] [facility] [address] [id number] [place] [address] 14 Oct, 2012 [facility] [place] [facility] [address] [id number] [place] [address] 07 Oct, 2012 [facility] [place] [facility] [address] [id number] [place] [address] 30 Sep, 2012 [facility] [place] [facility] [address] [id number] [place] [address] September, [facility] [place] [facility] [address] [id number] [place] [address] 15 Sep, 2012 [facility] [place] [facility] [address] [id number] [place] [address] 25 Aug, 2012 [facility] [place] [facility] [address] [id number] [place] [address] 24 Aug, 2012 [facility] [place] [facility] [address] [id number] [place] [address] 18 Aug, 2012 [facility] [address] [id number] [place] [address] 18 Aug, 2012 [facility] [place] [facility] [address] [id number] [place] [address] 18 Aug, 2012 [facility] [place] [facility] [address] [id number] [place] [address] 08 Aug, 2012 [facility] [place] [facility] [address] [id number] [place] [address] 05 Aug, 2012 [facility] [place] [facility] [address] [id number] [place] [address] Jul, [facility] [place] [facility] [address] [id number] [place] [address] Jul, [facility] [place] [facility] [address] [id number] [place] [address] 08 Jul, 2012 [facility] [place] [facility] [address] [id number] [place] [address] 08 Jul, 2012 [facility] [place] [facility] [address] [id number] [place] [address] 08 Jul, 2012 [facility] [place] [facility] [address] [id number] [place] [address] Jul, [facility] [place] [facility] [address] [id number] [place] [address] Jul, [facility] [place] [facility] [address] [id number] [place] [address] Jul, [facility] [place] [facility] [address] [id number] [place] [address] Jul, [facility] [place] [facility] [address] [id number] [place] [address] Jul, [facility] [place] [facility] [address] [id number] [place] [address] 11 Jul, 2012 [facility] [place] [facility] [address] [id number] [place] [address] 06 Jul, 2012 [facility] [place] [facility] [address] [id number] [place] [address] Jul, [facility] [place] [facility] [address] [id number] [place] [address] Jun, [facility] [place] [facility] [address] [id number] [place] [address] Jun, [facility] [place] [facility] [address] [id number] [place] [address] Jun, [facility] [place] [facility] [address] [id number] [place] [address] 17 Jun, 2012 [facility] [place] [facility] [address] [id number] [place] [address] 15 Jun, 2012 [facility] [place] [facility] [address] [id number] [place] [address] 14 Jun, 2012 [facility] [place] [facility] [address] [id number] [place] [address] Jun, [facility] [place] [facility] [address] [id number] [place] [address] May, [facility] [place] [facility] [address] [id number] [place] [address] May, [facility] [place] [facility] [address] [id number] [place] [address] May, [facility] [place] [facility] [address] [id number] [place] [address] May, [facility] [place] [facility] [address] [id number] [place] [address] May, [facility] [place] [facility] [address] [id number] [place] [address] May, [facility] [place] [facility] [address] [id number] [place] [address] May, [facility] [place] [facility] [address] [id number] [place] [address] May, [facility] [place] [facility] [address] [id number] [place] [address] May, [facility] [place] [facility] [address] [id number] [place] [address] May, [facility] [place] [facility] [address] [id number] [place] [address] Apr, [facility] [place] [facility] [address] [id number] [place] [address] Apr, [facility] [place] [facility] [address] [id number] [place] [address] Apr, [facility] [place] [facility] [address] [id number] [place] [address] Apr, [facility] [place] [facility] [address] [id number] [place] [address] Apr, [facility] [place] [facility] [address] [id number] [place] [address] Apr, [facility] [place] [facility] [address] [id number] [place] [address] Apr, [facility] [place] [facility] [address] [id number] [place] [address] Apr, [facility] [place] [facility] [address] [id number] [place] [address] Apr, [facility] [place] [facility] [address] [id number] [place] [address] Apr, [facility] [place] [facility] [address] [id number] [place] [address] Apr, [facility] [place] [facility] [address] [id number] [place] [address] Apr, [facility] [place] [facility] [address] [id number] [place] [address] Mar, [facility] [place] [facility] [address] [id number] [place] [address] Mar, [facility] [place] [facility] [address] [id number] [place] [address] Mar, [facility] [place] [facility] [address] [id number] [place] [address] Mar, 2011 [facility] [place] [facility] [address] [facility] [id number] [place] [address] Mar, 2011 [facility] [place] [facility] [address] [id number] [place] [address] Mar, 2011 [facility] [place] [facility] [address] [id number] [place] [address] Mar, 2011 [facility] [place] [facility] [address] [id number] [place] [address] Mar, 2011 [facility] [place] [facility] [address] [id number] [place] [address] Mar, 2011 [facility] [place] [facility] [address] [id number] [place] [address] Mar, 2011 [facility] [place] [facility] [address] [id number] [place] [address] Mar, [facility] [place] [facility] [address] [id number] [place] [address] Mar, [facility] [place] [facility] [address] [id number] [place] [address] Mar, [facility] [place] [facility] [address] [id number] [place] [address] Mar, [facility] [place] [facility] [address] [id number] [place] [address] Mar, [facility] [place] [facility] [address] [id number] [place] [address] Mar, [facility] [place] [facility] [address] [id number] [place] [address] 25 Jan, 2011 [facility] [place] [facility] [address] [id number] [place] [address] 24 Sep, 2011 [facility] [place] [facility] [address] [id number] [place] [address] 22 Sep, 2011 [facility] [place] [facility] [address] [id number] [place] [address] 22 Jan, 2011 [facility] [place] [facility] [address] [id number] [place] [address] 21 Jan, 2012 [facility] [place] [facility] [address] [id number] [place] [address] 18 Jan, 2012 [facility] [place] [facility] [address] [id number] [place] [address] 14 Jan, 2012 [facility] [place] [facility] [address] [id number] [place] [address] 07 Jan, 2012 [facility] [place] [facility] [address] [id number] [place] [address] 15 Dec, 2011 [facility] [place] [facility] [address] [id number] [place] [address] 10 Dec, 2011 [facility] [place] [facility] [address] [id number] [place] [address] Dec, [facility] [place] [facility] [address] [id number] [place] [address] Dec, [facility] [place] [facility] [address] [id number] [place] [address] Dec, [facility] [place] [facility] [address] [id number] [place] [address] Dec, [facility] [place] [facility] [address] [id number] [place] [address] Dec, [facility] [place] [facility] [address] [id number] [place] [address] Nov, [facility] [place] [facility] [address] [id number] [place] [address] Oct, [facility] [place] [facility] [address] [id number] [place] [address] 05 Aug, 2011 [facility] [place] [facility] [address] [id number] [place] [address] 22 Jul, 2011 [facility] [place] [facility] [address] [id number] [place] [address] 19 Jul, 2011 [facility] [place] [facility] [address] [id number] [place] [address] 16 Jul, 2011 [facility] [place] [facility] [address] [id number] [place] [address] 14 Jul, 2011 [facility] [place] [facility] [address] [id number] [place] [address] 07 Jul, 2011 [facility] [place] [facility] [address] [id number] [place] [address] 02 Jul, 2011 [facility] [place] [facility] [address] [id number] [place] [address] 21 Jul, 2011 [facility] [place] [facility] [address] [id number] [place] [address] 15 Jul, 2011 [facility] [id number] [place] [address] 13 Jul, 2011 [facility] [id number] [place] [address] Jul, [facility] [id number] [place] [address] Jul, [facility] [id number] [place] [address] Jun, [facility] [id number] [place] [address] Jun, [facility] [id number] [place] [address] Jun, [facility] [id number] [place] [address] Jun, [facility] [id number] [place] [address] Jun, [facility] [address] [id number] [place] [address] Jun, [facility] [id number] [place] [address] Jun, [facility] [id number] [place] [address] May, [facility] [id number] [place] [address] May[facility] [id number] [place] [address] May, [facility] [id number] [place] [address] May, [facility] [id number] [place] [address] May, [facility] [id number] [place] [address] May, [facility] [id number] [place] [address] May, [facility] [id number] [place] [address] May, [facility] [id number] [place] [address] May, [facility] [id number] [place] [address] May, [facility] [id number] [place] [address] Apr, [facility] [id number] [place] [address] Apr, [facility] [id number] [place] [address] Apr, [facility] [id number] [place] [address] Apr[facility] [id number] [place] [address] Mar, [facility] [id number] [place] [address] Mar, [facility] [id number] [place] [address] Mar, [facility] [id number] [place] [address] Mar, IMMUNIZATIONS No Known Immunizations SOCIAL HISTORY [...]
--- OUTSIDE RECORDS SUMMARY | 2020-01-03 18:24 | XMS REPORT ---
Author Author Pattie Moffett Doctor Organization [facility] Address Unknown Phone Unavailable Care Team Providers Care Booster Station Operator Name Role Phone Migration, Doctor Unavailable Unavailable PROBLEMS Type Condition ICD9-CM Code MAY66-JA Code Onset Dates Condition S tatus SNOMED Code Problem FRANCIS (generalized anxiety disorder) F41.1 Active 38949171 Problem Thoracic disc herniation M51.24 Activ e 003640383 Problem Major depressive disorder in partial remission F32 .4 Active 73599980 Problem Paroxysmal tachycardia I47.9 Active 19965137 Problem Slow transit constipation K59.01 Acti ve 07840874 Problem Constipation, unspecified constipation type K59.00 Active 85487207 Problem Obesity (BMI 30.0-34.9) E66.9 Active [id number] Problem Seizure disorder G40.909 Active 128 306405 Problem High blood pressure I10 Active 66419457 Problem Conversion disorder (or hysterical neurosis, conversion ty pe) F44.9 Active 71348242 Problem Mild episode of recurrent major depressive disorder F33.0 Active 647331299 Problem Restless leg syndrome G25.81 Active 98528415 Problem Other chronic pain G89.29 Active 8 6943313 Problem Mild intermittent asthma without complication J45. 20 Active 289155025 ALLERGIES No Information ENCOUNTERS Encounter Location Date Diagnosis [place] [address] [address] 27 Jul, 2019 Major depressive disorder in partial rem ission F32.4 ; FRANCIS (generalized anxiety disorder) F41.1 ; Restless leg syndrome G25.81 and High blood pressure I10 [facility] [address] [address] 17 Jul, 2019 [facility] [address] [address] Jul, [facility] [address] [address] Jun, [facility] [address] [address] May, [facility] [address] [address] Apr, [facility] [address] [address] Apr, [facility] [address] [address] Mar, [facility] [address] [address] Mar, Major depressive disorder in partial rem ission F32.4 ; FRANCIS (generalized anxiety disorder) F41.1 and Restless leg syndrome G25.81 [facility] [address] [address] Mar, Obesity (BMI 30.0-34.9) E66.9 [place] [address] [address] Jan, [facility] [address] [facility] [id number] [address] [place] [address] Jan, Burn T30.0 [facility] [address] [address] Dec, [facility] [address] [address] Nov, [facility] [address] [address] Nov, [facility] [address] [facility] [place] [id number] Nov, Dental examination Z01.20 [facility] [address] [address] September, [facility] [address] [id number] September, Decay, teeth K02.9 and Dental examinatio n Z01.20 [facility] [address] [facility] [place] [id number] 08 Sep, 2018 Dental examination Z01.20 [place] [address] [address] September, FRANCIS (generalized anxiety disorder) F41.1 ; Major depressive disorder in partial remission F32.4 and Restless leg syndrome G25.81 [place] [address] [address] Aug, [place] [address] [address] Jul, [place] [address] [address] Jul, Encounter to discuss test results Z71.2 [place] [address] [address] Jul, Pelvic pain R10.2 ; Screening for breast cancer Z12.31 and Obesity (BMI 30.0-34.9) E66.9 [place] [address] [address] Jul, Mild intermittent asthma without complic ation J45.20 [place] [address] [address] 12 Jul, 2018 Major depressive disorder in partial rem ission F32.4 and FRANCIS (generalized anxiety disorder) F41.1 [place] [address] [address] Jul, [place] [address] [address] Jun, [place] [address] [address] May, Major depressive disorder in partial rem ission F32.4 ; FRANCIS (generalized anxiety disorder) F41.1 and Restless leg syndrome G25.81 [place] [address] [address] Apr, [place] [address] [place] [id number] [place] [address] Mar, [facility] [address] [facility] [id number] [address] [place] [address] Jan, Pain in thoracic spine M54.6 and Other chronic pain G89.29 [facility] [address] [address] Jan, [facility] [address] [address] Jan, Mild episode of recurrent major depressi ve disorder F33.0 ; FRANCIS (generalized anxiety disorder) F41.1 and Restless leg syndrome G25.81 [facility] [address] [address] Dec, [facility] [address] [address] Dec, Hospital discharge follow-up Z09 [facility] [address] [address] Nov, [facility] [address] [address] Nov, [facility] [address] [address] September, [facility] [address] [address] September, [facility] [address] [address] September, Major depressive disorder in partial rem ission F32.4 ; FRANCIS (generalized anxiety disorder) F41.1 and Restless leg syndrome G25.81 [facility] [address] [address] September, [facility] [address] [address] Jul, [facility] [address] [address] Jul, Dorsalgia, unspecified M54.9 [place] [address] [address] Jul, Mild episode of recurrent major depressi ve disorder F33.0 and FRANCIS (generalized anxiety disorder) F41.1 [place] [address] [address] May, [facility] [address] [place] [id number] [address] [place] [address] May, Dysuria R30.0 and Acute cyst itis with hematuria N30.01 [place] [address] [address] Apr, [place] [address] [address] Apr, Major depressive disorder in partial rem ission F32.4 and FRANCIS (generalized anxiety disorder) F41.1 [place] [address] [address] Mar, Paroxysmal tachycardia I47.9 [place] [address] [address] Mar, Paroxysmal tachycardia I47.9 and Pain of left lower extremity M79.605 [place] [address] [address] Mar, FRANCIS (generalized anxiety disorder) F41.1 and Major depressive disorder in partial remission F32.4 [place] [address] [address] Jan, [place] [address] [address] Jan, [place] [address] [address] Jan, [facility] [address] [facility] [id number] [address] [place] [address] Dec, Constipation, unspecified co nstipation type K59.00 [place] [address] [address] Dec, [place] [address] [address] Nov, [place] [address] [address] Nov, Major depressive disorder in partial rem ission F32.4 and FRANCIS (generalized anxiety disorder) F41.1 [facility] [address] [place] [id number] [address] [place] [address] Oct, Abdominal pain R10.9 and Slo w transit constipation K59.01 [place] [address] [address] Aug, Major depressive disorder in partial rem ission F32.4 ; FRANCIS (generalized anxiety disorder) F41.1 ; Conversion disorder (or hysterical neurosis, conversion type) F44.9 ; Dorsalgia, unspecified M54.9 and Long-term use of high-risk medication Z79.899 [place] [address] [address] Aug, [place] [address] [address] Jul, Paroxysmal tachycardia I47.9 [place] [address] [address] Jul, Paroxysmal tachycardia I47.9 [place] [address] [address] Jun, [place] [address] [address] Jun, Major depressive disorder in partial rem ission F32.4 ; FRANCIS (generalized anxiety disorder) F41.1 and Conversion disorder (or hysterical neurosis, conversion type) F44.9 [facility] [address] [place] [id number] [address] [place] [address] May, Pelvic pain R10.2 [facility] [address] [place] [id number] [address] [place] [address] 30 Apr, 2016 Gastroenteritis K52.9 [facility] [address] [place] [id number] [address] [place] [address] Apr, Blood in urine R31.9 and Acu te cystitis with hematuria N30.01 [facility] [address] [address] Apr, Major depressive disorder in partial rem ission F32.4 ; FRANCIS (generalized anxiety disorder) F41.1 and Conversion disorder (or hysterical neurosis, conversion type) F44.9 [place] [address] [address] Apr, [place] [address] [address] Apr, Abnormal mammogram R92.8 [place] [address] [address] Mar, [place] [address] [address] Mar, Gastroenteritis K52.9 and Seizure disord er G40.909 [place] [address] [address] Dec, [facility] [address] [place] [address] Dec, Other headache syndrome G44. 89 [place] [address] [address] Dec, [place] [address] [address] Dec, Thoracic disc herniation M51.24 [place] [address] [address] Dec, [place] [address] [address] Nov, Major depressive disorder in partial rem ission F32.4 and FRANCIS (generalized anxiety disorder) F41.1 [facility] [address] [id number] [place] [address] Nov, [facility] [address] [id number] [place] [address] Nov, Dorsalgia, unspecified M54.9 [facility] [address] [place] [id number] [place] [address] Oct, [facility] [address] [place] [id number] [place] [address] September, [facility] [address] [address] Aug, [facility] [address] [place] [id number] [place] [address] Aug, Major depressive disorder in partial rem ission F32.4 and FRANCIS (generalized anxiety disorder) F41.1 [facility] [address] [place] [id number] [place] [address] Aug, [facility] [address] [place] [id number] [place] [address] Jul, Abnormal mammogram R92.8 [facility] [address] [place] [id number] [place] [address] Jul, [facility] [address] [id number] [place] [address] Jul, [facility] [address] [place] [id number] [place] [address] Jul, [facility] [address] [id number] [place] [address] Jul, [facility] [address] [place] [id number] [place] [address] Jul, [facility] [address] [place] [id number] [place] [address] Jul, [facility] [address] [place] [address] [address] Jun, Major depressive disorder in partial rem ission F32.4 and FRANCIS (generalized anxiety disorder) F41.1 [facility] [address] [address] Jun, [facility] [address] [address] May, [facility] [address] [address] Apr, [facility] [address] [address] Mar, Major depressive disorder, recurrent epi sode, moderate F33.1 ; PTSD (post-traumatic stress disorder) F43.10 and FRANCIS (generalized anxiety disorder) F41.1 [facility] [address] [address] Mar, [facility] [address] [address] Mar, [facility] [address] [address] Mar, [facility] [address] [address] Mar, [facility] [address] [address] Jan, [facility] [address] [address] 15 Jan, 2015 [facility] [address] [address] 15 Jan, 2015 [facility] [address] [address] 14 Jan, 2015 Thoracic disc herniation 722.11 [facility] [address] [address] Dec, [facility] [address] [address] Dec, [facility] [address] [place] [id number] [place] [address] Dec, [facility] [address] [place] [id number] [place] [address] Nov, [facility] [address] [place] [id number] [place] [address] Nov, Generalized anxiety disorder 300.02 ; Po sttraumatic stress disorder 309.81 and Major depressive disorder, recurrent episode, moderate 296.32 [facility] [address] [place] [id number] [place] [address] Nov, [facility] [address] [place] [id number] [place] [address] Nov, [facility] [address] [place] [id number] [place] [address] Oct, [facility] [address] [place] [id number] [place] [address] Oct, [facility] [address] [place] [id number] [place] [address] Oct, [facility] [address] [place] [id number] [place] [address] September, [facility] [address] [place] [id number] [place] [address] September, [facility] [address] [place] [id number] [place] [address] Aug, [facility] [address] [place] [id number] [place] [address] Aug, [facility] [address] [place] [id number] [place] [address] Jul, [facility] [address] [place] [id number] [place] [address] Jul, [facility] [address] [place] [id number] [place] [address] Jul, [facility] [address] [place] [id number] [place] [address] 17 Jul, 2014 [facility] [address] [facility] [id number] [place] [address] Jul, [facility] [address] [id number] [facility] [place] [address] Jul, [facility] [address] [id number] [place] [address] Jul, [facility] [address] [id number] [place] [address] Jul, [facility] [address] [id number] [place] [address] Jul, [facility] [address] [id number] [place] [address] Jul, [facility] [address] [id number] [place] [address] Jun, [facility] [address] [id number] [place] [address] Jun, [facility] [address] [id number] [place] [address] Jun, [facility] [address] [id number] [place] [address] May, [facility] [address] [id number] [place] [address] Apr, [facility] [address] [id number] [place] [address] Apr, [facility] [address] [id number] [place] [address] Apr, [facility] [address] [id number] [place] [address] Apr, [facility] [address] [id number] [place] [address] Apr, [facility] [address] [id number] [place] [address] Apr, [facility] [address] [facility] [id number] [place] [address] Apr, [facility] [address] [facility] [id number] [place] [address] Apr, [facility] [address] [facility] [id number] [place] [address] Mar, [facility] [address] [id number] [place] [address] Mar, [facility] [address] [id number] [place] [address] Mar, [facility] [address] [id number] [place] [address] Mar, [facility] [address] [id number] [place] [address] Mar, [facility] [address] [id number] [place] [address] Mar, [facility] [address] [id number] [place] [address] Mar, [facility] [address] [id number] [place] [address] Mar, [facility] [address] [id number] [place] [address] Mar, [facility] [address] [id number] [place] [address] Mar, [facility] [address] [id number] [place] [address] Mar, [facility] [address] [id number] [place] [address] 14 Mar, 2014 [facility] [address] [id number] [place] [address] 14 Mar, 2014 [facility] [address] [id number] [place] [address] Mar, [facility] [address] [id number] [place] [address] Mar, 2013 [facility] [address] [id number] [place] [address] 06 Mar, 2013 [facility] [address] [id number] [place] [address] Mar, 2013 [facility] [address] [id number] [place] [address] Sep, 2013 [facility] [address] [id number] [place] [address] 19 Sep, 2013 [facility] [address] [id number] [place] [address] 09 Sep, 2013 [facility] [address] [id number] [place] [address] 09 Sep, 2013 [facility] [address] [id number] [place] [address] 05 Sep, 2013 [facility] [address] [id number] [place] [address] 05 Sep, 2013 [facility] [address] [id number] [place] [address] 05 Sep, 2013 [facility] [address] [id number] [place] [address] 05 Sep, 2013 [facility] [address] [id number] [place] [address] 03 Sep, 2013 [facility] [address] [id number] [place] [address] Sep, 2013 [facility] [address] [id number] [place] [address] 02 Sep, 2013 [facility] [address] [id number] [place] [address] Sep, 2013 [facility] [address] [id number] [place] [address] Sep, 2013 [facility] [address] [id number] [place] [address] Dec, 2013 [facility] [address] [id number] [place] [address] Dec, [facility] [address] [facility] [id number] [place] [address] Dec, [facility] [address] [id number] [place] [address] Dec, [facility] [address] [id number] [place] [address] Dec, [facility] [address] [id number] [place] [address] Dec, [facility] [address] [facility] [id number] Dec, [facility] [address] [facility] [id number] Dec, [facility] [address] [id number] [place] [address] Dec, [facility] [address] [id number] [place] [address] Dec, [facility] [address] [id number] [place] [address] Dec, [facility] [address] [id number] [place] [address] Dec, [facility] [address] [id number] [place] [address] Nov, [facility] [address] [id number] [place] [address] Nov, [facility] [address] [id number] [place] [address] Nov, [facility] [address] [facility] [id number] [place] [address] Nov, [facility] [address] [id number] [place] [address] Nov, [facility] [address] [id number] [place] [address] Nov, [facility] [address] [id number] [place] [address] Nov, [facility] [address] [facility] [id number] [facility] [place] [address] Nov, [facility] [address] [facility] [id number] [facility] [place] [address] Nov, [facility] [address] [id number] [facility] [place] [address] Nov, [facility] [address] [facility] [id number] [facility] [place] [address] Nov, [facility] [address] [facility] [id number] [facility] [place] [address] Nov, [facility] [address] [facility] [id number] [facility] [place] [address] Nov, [facility] [address] [id number] [facility] [place] [address] Oct, [facility] [address] [id number] [facility] [place] [address] Oct, [facility] [address] [facility] [id number] [facility] [place] [address] Oct, [facility] [address] [id number] [place] [address] Oct, [facility] [address] [id number] [place] [address] Oct, [facility] [address] [id number] [place] [address] Oct, [facility] [address] [facility] [id number] [facility] [place] [address] Oct, [facility] [address] [facility] [id number] [place] [address] Oct, [facility] [address] [facility] [id number] [place] [address] Oct, [facility] [address] [id number] [place] [address] Oct, [facility] [address] [facility] [id number] [facility] [place] [address] Oct, [facility] [address] [id number] [place] [address] Oct, [facility] [address] [facility] [id number] [facility] [place] [address] September, [facility] [address] [id number] [place] [address] September, [facility] [address] [facility] [id number] [facility] [place] [address] September, [facility] [address] [facility] [id number] [facility] [place] [address] September, [facility] [address] [id number] [place] [address] Aug, [facility] [facility] [address] [id number] [place] [address] Aug, [facility] [address] [id number] [place] [address] Aug, [facility] [address] [facility] [id number] [facility] [place] [address] Aug, [facility] [address] [id number] [place] [address] Aug, [facility] [address] [id number] [place] [address] Aug, [facility] [address] [id number] [place] [address] Aug, [facility] [address] [facility] [id number] [place] [address] Jul, [facility] [address] [id number] [place] [address] Jul, [facility] [address] [id number] [place] [address] Jul, [facility] [address] [id number] [place] [address] Jul, [facility] [address] [facility] [id number] [place] [address] Jul, [facility] [address] [id number] [place] [address] Jul, [facility] [address] [id number] [place] [address] Jul, [facility] [address] [id number] [place] [address] Jul, [facility] [address] [facility] [id number] [place] [address] Jul, [facility] [address] [id number] [place] [address] Jul, [facility] [address] [id number] [place] [address] Jul, [facility] [address] [id number] [place] [address] Jul, [facility] [address] [id number] [place] [address] Jul, [facility] [address] [id number] [place] [address] Jul, [facility] [address] [id number] [place] [address] Jul, [facility] [address] [id number] [place] [address] Jul, [facility] [address] [id number] [place] [address] Jul, [facility] [address] [id number] [place] [address] Jul, [facility] [address] [id number] [place] [address] Jun, [facility] [address] [id number] [place] [address] Jun, [facility] [address] [id number] [place] [address] 15 Jun, 2013 [facility] [address] [id number] [place] [address] 15 Jun, 2013 [facility] [address] [id number] [place] [address] 14 Jun, 2013 [facility] [address] [id number] [place] [address] 14 Jun, 2013 [facility] [address] [id number] [place] [address] 14 Jun, 2013 [facility] [address] [id number] [place] [address] 14 Jun, 2013 [facility] [address] [id number] [place] [address] 14 Jun, 2013 [facility] [address] [id number] [place] [address] 14 Jun, 2013 [facility] [address] [id number] [place] [address] 27 May, 2013 [facility] [address] [id number] [place] [address] 27 May, 2013 [facility] [address] [id number] [place] [address] 26 May, 2013 [facility] [address] [id number] [place] [address] 19 May, 2013 [facility] [address] [id number] [place] [address] 19 May, 2013 [facility] [address] [id number] [place] [address] 16 May, 2013 [facility] [address] [id number] [place] [address] 16 May, 2013 [facility] [address] [id number] [place] [address] 16 May, 2013 [facility] [address] [id number] [place] [address] 16 May, 2013 [facility] [address] [id number] [place] [address] 13 May, 2013 [facility] [address] [id number] [place] [address] 13 May, 2013 [facility] [address] [id number] [place] [address] 11 May, 2013 [facility] [address] [id number] [place] [address] 20 Apr, 2013 [facility] [address] [id number] [place] [address] 18 Apr, 2013 [facility] [address] [id number] [place] [address] 18 Apr, 2013 [facility] [address] [id number] [place] [address] Apr, [facility] [id number] [place] [address] 13 Apr, 2013 [facility] [address] [id number] [place] [address] 08 Apr, 2013 [facility] [address] [id number] [place] [address] 08 Apr, 2013 [facility] [address] [id number] [place] [address] 07 Apr, 2013 [facility] [address] [id number] [place] [address] 07 Apr, 2013 [facility] [address] [id number] [place] [address] 07 Apr, 2013 [facility] [address] [id number] [place] [address] 07 Apr, 2013 [facility] [address] [id number] [place] [address] Mar, [facility] [address] [id number] [place] [address] Mar, [facility] [address] [id number] [place] [address] Mar, [facility] [address] [facility] [id number] [place] [address] Mar, [facility] [address] [facility] [id number] [place] [address] Mar, [facility] [address] [id number] [place] [address] Mar, [facility] [address] [id number] [place] [address] Mar, [facility] [address] [facility] [id number] [place] [address] Mar, [facility] [address] [id number] [place] [address] Mar, [facility] [address] [id number] [place] [address] Mar, [facility] [address] [id number] [place] [address] 15 Mar, 2013 [facility] [address] [id number] [place] [address] Mar, [facility] [address] [id number] [place] [address] 30 Jan, 2013 [facility] [address] [id number] [place] [address] 25 Jan, 2013 [facility] [address] [id number] [place] [address] 20 Jan, 2013 [facility] [address] [id number] [place] [address] Jan, [facility] [address] [id number] [place] [address] Dec, [facility] [address] [id number] [place] [address] Dec, [facility] [address] [id number] [place] [address] Dec, [facility] [address] [id number] [facility] [place] [address] Dec, [facility] [address] [id number] [facility] [place] [address] Dec, [facility] [address] [facility] [id number] [facility] [place] [address] Dec, [facility] [address] [id number] [place] [address] Dec, [facility] [address] [id number] [facility] [place] [address] Dec, [facility] [address] [id number] [facility] [place] [address] Dec, [facility] [address] [id number] [place] [address] Nov, [facility] [address] [id number] [place] [address] Nov, [facility] [address] [id number] [place] [address] Nov, [facility] [address] [id number] [place] [address] Nov, [facility] [address] [id number] [place] [address] Nov, [facility] [address] [id number] [place] [address] Nov, [facility] [address] [id number] [place] [address] Nov, [facility] [address] [facility] [id number] [place] [address] Nov, [facility] [address] [id number] [place] [address] Oct, [facility] [address] [id number] [place] [address] Oct, [facility] [address] [id number] [place] [address] Oct, [facility] [address] [id number] [place] [address] Oct, [facility] [address] [id number] [place] [address] Oct, [facility] [address] [id number] [place] [address] Oct, [facility] [address] [id number] [place] [address] Oct, [facility] [address] [id number] [place] [address] Oct, [facility] [address] [id number] [place] [address] 19 Oct, 2012 [facility] [address] [id number] [place] [address] 18 Oct, 2012 [facility] [address] [id number] [place] [address] 17 Oct, 2012 [facility] [address] [id number] [place] [address] 14 Oct, 2012 [facility] [address] [id number] [place] [address] 07 Oct, 2012 [facility] [address] [id number] [place] [address] September, [facility] [address] [id number] [place] [address] September, [facility] [address] [id number] [place] [address] September, [facility] [address] [id number] [place] [address] Aug, [facility] [address] [id number] [place] [address] 24 Aug, 2012 [facility] [address] [id number] [place] [address] 18 Aug, 2012 [facility] [address] [id number] [place] [address] Aug, [facility] [address] [facility] [id number] [facility] [place] [address] 18 Aug, 2012 [facility] [address] [id number] [place] [address] 08 Aug, 2012 [facility] [address] [id number] [facility] [place] [address] 05 Aug, 2012 [facility] [address] [id number] [facility] [place] [address] Jul, [facility] [address] [id number] [facility] [place] [address] Jul, [facility] [address] [id number] [place] [address] Jul, [facility] [address] [id number] [place] [address] Jul, [facility] [address] [id number] [place] [address] Jul, [facility] [address] [id number] [place] [address] Jul, [facility] [address] [id number] [place] [address] Jul, [facility] [address] [id number] [place] [address] Jul, [facility] [address] [id number] [place] [address] Jul, [facility] [address] [id number] [place] [address] Jul, [facility] [address] [id number] [place] [address] Jul, [facility] [address] [id number] [place] [address] 06 Jul, 2012 [facility] [address] [id number] [place] [address] Jul, [facility] [address] [id number] [place] [address] 24 Jun, 2012 [facility] [address] [id number] [place] [address] Jun, [facility] [address] [id number] [place] [address] Jun, [facility] [address] [id number] [place] [address] 17 Jun, 2012 [facility] [address] [id number] [place] [address] 15 Jun, 2012 [facility] [address] [id number] [place] [address] 14 Jun, 2012 [facility] [address] [id number] [place] [address] Jun, [facility] [address] [id number] [place] [address] May, [facility] [address] [id number] [place] [address] May, [facility] [address] [id number] [place] [address] May, [facility] [address] [id number] [place] [address] May, [facility] [address] [id number] [place] [address] May, [facility] [address] [id number] [place] [address] May, [facility] [address] [id number] [place] [address] May, [facility] [address] [id number] [place] [address] May, [facility] [address] [id number] [place] [address] May, [facility] [address] [id number] [place] [address] May, [facility] [address] [id number] [place] [address] Apr, [facility] [address] [id number] [place] [address] Apr, [facility] [address] [id number] [place] [address] Apr, [facility] [address] [id number] [place] [address] Apr, [facility] [address] [id number] [place] [address] Apr, [facility] [address] [id number] [place] [address] Apr, [facility] [address] [id number] [place] [address] Apr, [facility] [address] [id number] [place] [address] Apr, [facility] [address] [id number] [place] [address] Apr, [facility] [address] [id number] [place] [address] Apr, [facility] [address] [id number] [place] [address] Apr, [facility] [address] [id number] [place] [address] Apr, [facility] [address] [id number] [place] [address] Mar, [facility] [address] [id number] [place] [address] Mar, [facility] [address] [id number] [place] [address] Mar, [facility] [address] [id number] [place] [address] Mar, [facility] [address] [id number] [place] [address] 30 Mar, 2011 [facility] [address] [id number] [place] [address] Mar, 2011 [facility] [address] [id number] [place] [address] Mar, 2011 [facility] [address] [id number] [place] [address] Mar, 2011 [facility] [address] [id number] [place] [address] Mar, 2011 [facility] [address] [id number] [place] [address] Mar, [facility] [address] [id number] [place] [address] Mar, [facility] [address] [id number] [place] [address] Mar, [facility] [address] [id number] [place] [address] Mar, [facility] [address] [id number] [place] [address] Mar, [facility] [address] [id number] [place] [address] Mar, [facility] [address] [id number] [place] [address] Mar, [facility] [address] [id number] [place] [address] 25 Jan, 2011 [facility] [address] [id number] [place] [address] 24 Sep, 2011 [facility] [address] [id number] [place] [address] 22 Jan, 2011 [facility] [address] [id number] [place] [address] 22 Jan, 2011 [facility] [address] [id number] [place] [address] 21 Jan, 2011 [facility] [address] [id number] [place] [address] 18 Jan, 2012 [facility] [address] [id number] [place] [address] 14 Jan, 2012 [facility] [address] [id number] [place] [address] 07 Jan, 2012 [facility] [address] [id number] [place] [address] 15 Dec, 2011 [facility] [address] [id number] [place] [address] Dec, [facility] [address] [id number] [place] [address] Dec, [facility] [address] [id number] [place] [address] Dec, [facility] [address] [id number] [place] [address] Dec, [facility] [address] [id number] [place] [address] Dec, [facility] [address] [id number] [place] [address] Dec, [facility] [address] [id number] [place] [address] Nov, [facility] [address] [id number] [place] [address] Oct, [facility] [address] [id number] [place] [address] Aug, [facility] [address] [id number] [place] [address] Jul, [facility] [address] [id number] [place] [address] 19 Jul, 2011 [facility] [address] [id number] [place] [address] 16 Jul, 2011 [facility] [address] [id number] [place] [address] 14 Jul, 2011 [facility] [address] [facility] [id number] [facility] [place] [address] 07 Jul, 2011 [facility] [address] [id number] [facility] [place] [address] 02 Jul, 2011 [facility] [address] [id number] [facility] [place] [address] Jul, [facility] [address] [id number] [facility] [place] [address] 15 Jul, 2011 [facility] [address] [id number] [facility] [place] [address] 13 Jul, 2011 [facility] [address] [id number] [facility] [place] [address] Jul, [facility] [address] [id number] [place] [address] Jul, [facility] [address] [id number] [place] [address] Jun, [facility] [address] [id number] [facility] [place] [address] Jun, [facility] [address] [id number] [place] [address] Jun, [facility] [address] [id number] [place] [address] Jun, [facility] [address] [id number] [place] [address] Jun, [facility] [address] [id number] [place] [address] Jun, [facility] [address] [id number] [place] [address] Jun, [facility] [address] [id number] [facility] [place] [address] May, [facility] [address] [id number] [facility] [place] [address] May, [facility] [address] [id number] [place] [address] May, [facility] [address] [id number] [place] [address] May, [facility] [address] [id number] [place] [address] May, [facility] [id number] [place] [address] May, [facility] [id number] [place] [address] May, [facility] [id number] [place] [address] May, [facility] [id number] [place] [address] May, [facility] [id number] [place] [address] May, [facility] [id number] [place] [address] Apr, [facility] [id number] [place] [address] Apr, [facility] [address] [id number] [place] [address] Apr, [facility] [address] [id number] [place] [address] Apr, [facility] [address] [id number] [place] [address] Mar, [facility] [address] [id number] [place] [address] Mar, [facility] [address] [id number] [place] [address] Mar, [facility] [address] [id number] [place] [address] Mar, IMMUNIZATIONS No Known Immunizations SOCIAL HISTORY Never Assessed REASON FOR VISIT PLAN OF CARE VITAL SIGNS Weight 171.5 lbs 2013-07-19 Temperature 99.1 degrees Fahrenheit 2013-07-19 Heart Rate 100 bpm 2013-07-19 Respiratory Rate 28 2013-07-19 Blood pressure systolic 146 mmHg 2013-07-19 Blood pressure diastolic 118 mmHg 2013-07-19 MEDICATIONS No Known Medications RESULTS No Results PROCEDURES Procedure Date Ordered Result Body Site PSYTX PT&/FAMILY 45 MINUTES Jul 19, 2013 INSTRUCTIONS MEDICATIONS ADMINISTERED No Known [...]
--- OUTSIDE RECORDS SUMMARY | 2020-01-03 18:25 | XMS REPORT ---
Author Author Pattie Moffett Doctor Organization [facility] Address Unknown Phone Unavailable Care Team Providers Care Svp Operations Name Role Phone Migration, Doctor Unavailable Unavailable PROBLEMS Type Condition ICD9-CM Code [id number] Code Onset Dates Condition S tatus SNOMED Code Problem Major depressive disorder in partial remission F32 .4 Active 27841062 Problem FRANCIS (generalized anxiety disorder) F41.1 Active 49720348 Problem Seizure disorder G40.909 Active 128 652164 Problem Paroxysmal tachycardia I47.9 Active 14187468 Problem Slow transit constipation K59.01 Acti ve 49697079 Problem Mild intermittent asthma without complication J45. 20 Active 202844209 Problem Conversion disorder (or hysterical neurosis, conversion ty pe) F44.9 Active 28823680 Problem Obesity (BMI 30.0-34.9) E66.9 Active 139724387961305 Problem Thoracic disc herniation M51.24 Activ e 944070565 Problem Constipation, unspecified constipation type K59.00 Active 80456398 Problem Mild episode of recurrent major depressive disorder F33.0 Active 946554100 Problem Restless leg syndrome G25.81 Active 99165889 Problem Other chronic pain G89.29 Active 8 8890746 ALLERGIES No Information ENCOUNTERS Encounter Location Date Diagnosis [facility] [address] [address] Jul, [facility] [address] [address] Jul, [facility] [address] [address] Jul, [facility] [address] [address] Jun, [facility] [address] [address] May, [facility] [address] [address] Apr, [facility] [address] [address] Apr, [facility] [address] [address] Mar, [facility] [address] [address] Mar, Major depressive disorder in partial rem ission F32.4 ; FRANCIS (generalized anxiety disorder) F41.1 and Restless leg syndrome G25.81 [facility] [address] [address] Mar, Obesity (BMI 30.0-34.9) E66.9 [facility] [address] [address] Jan, [facility] [address] [facility] [id number] [address] [place] [address] Jan, Burn T30.0 [facility] [address] [address] Dec, [facility] [address] [address] Nov, [facility] [address] [address] Nov, [facility] [address] [id number] Nov, Dental examination Z01.20 [facility] [id number] [place] [address] September, [facility] [address] [id number] September, Decay, teeth K02.9 and Dental examinatio n Z01.20 [facility] [address] [facility] [place] [id number] September, Dental examination Z01.20 [facility] [address] [address] September, FRANCIS (generalized anxiety disorder) F41.1 ; Major depressive disorder in partial remission F32.4 and Restless leg syndrome G25.81 [place] [address] [address] Aug, [facility] [address] [address] Jul, [place] [address] [address] Jul, Encounter to discuss test results Z71.2 [place] [address] [address] Jul, Pelvic pain R10.2 ; Screening for breast cancer Z12.31 and Obesity (BMI 30.0-34.9) E66.9 [place] [address] [address] Jul, Mild intermittent asthma without complic ation J45.20 [place] [address] [address] Jul, Major depressive disorder in partial rem ission F32.4 and FRANCIS (generalized anxiety disorder) F41.1 [place] [address] [address] Jul, [place] [address] [address] Jun, [place] [address] [address] May, Major depressive disorder in partial rem ission F32.4 ; FRANCIS (generalized anxiety disorder) F41.1 and Restless leg syndrome G25.81 [place] [address] [address] Apr, [place] [address] [address] Mar, [facility] [address] [facility] [id number] [address] [place] [address] 21 Jan, 2018 Pain in thoracic spine M54.6 and Other chronic pain G89.29 [facility] [address] [address] 14 Jan, 2018 [facility] [address] [address] 11 Jan, 2018 Mild episode of recurrent major depressi ve disorder F33.0 ; FRANCIS (generalized anxiety disorder) F41.1 and Restless leg syndrome G25.81 [facility] [address] [address] Dec, [facility] [address] [address] Dec, Hospital discharge follow-up Z09 [facility] [address] [address] Nov, [facility] [address] [address] Nov, [facility] [address] [address] September, [facility] [address] [address] September, [facility] [address] [address] September, Major depressive disorder in partial rem ission F32.4 ; FRANICS (generalized anxiety disorder) F41.1 and Restless leg syndrome G25.81 [facility] [address] [address] September, [facility] [address] [address] Jul, [facility] [address] [address] Jul, Dorsalgia, unspecified M54.9 [facility] [address] [address] Jul, Mild episode of recurrent major depressi ve disorder F33.0 and FRANCIS (generalized anxiety disorder) F41.1 [place] [address] [address] May, [facility] [address] [facility] [id number] [address] [place] [address] May, Dysuria R30.0 and Acute cyst itis with hematuria N30.01 [place] [address] [address] Apr, [place] [address] [address] Apr, Major depressive disorder in partial rem ission F32.4 and FRANCIS (generalized anxiety disorder) F41.1 [place] [address] [address] Mar, Paroxysmal tachycardia I47.9 [place] [address] [address] Mar, Paroxysmal tachycardia I47.9 and Pain of left lower extremity M79.605 [place] [address] [address] Mar, FRANCIS (generalized anxiety disorder) F41.1 and Major depressive disorder in partial remission F32.4 [place] [address] [address] Jan, [place] [address] [address] Jan, [place] [address] [address] Jan, [facility] [address] [facility] [id number] [address] [place] [address] Dec, Constipation, unspecified co nstipation type K59.00 [place] [address] [address] Dec, [place] [address] [address] Nov, [place] [address] [address] Nov, Major depressive disorder in partial rem ission F32.4 and FRANCIS (generalized anxiety disorder) F41.1 [facility] [address] [place] [address] Oct, Abdominal pain R10.9 and Slo w transit constipation K59.01 [place] [address] [address] Aug, Major depressive disorder in partial rem ission F32.4 ; FRANCIS (generalized anxiety disorder) F41.1 ; Conversion disorder (or hysterical neurosis, conversion type) F44.9 ; Dorsalgia, unspecified M54.9 and Long-term use of high-risk medication Z79.899 [place] [address] [address] Aug, [place] [address] [address] Jul, Paroxysmal tachycardia I47.9 [place] [address] [address] Jul, Paroxysmal tachycardia I47.9 [place] [address] [address] Jun, [place] [address] [address] Jun, Major depressive disorder in partial rem ission F32.4 ; FRANCIS (generalized anxiety disorder) F41.1 and Conversion disorder (or hysterical neurosis, conversion type) F44.9 [facility] [id number] [place] [address] May, Pelvic pain R10.2 [facility] [address] [id number] [place] [address] Apr, Gastroenteritis K52.9 [facility] [address] [id number] [address] 17 Apr, 2016 Blood in urine R31.9 and Acu te cystitis with hematuria N30.01 [facility] [address] [address] Apr, Major depressive disorder in partial rem ission F32.4 ; FRANCIS (generalized anxiety disorder) F41.1 and Conversion disorder (or hysterical neurosis, conversion type) F44.9 [facility] [address] [address] Apr, [place] [address] [address] Apr, Abnormal mammogram R92.8 [place] [address] [address] Mar, [place] [address] [address] Mar, Gastroenteritis K52.9 and Seizure disord er G40.909 [facility] [address] [address] Dec, [facility] [address] [facility] [id number] [place] [address] Dec, Other headache syndrome G44. 89 [facility] [address] [address] Dec, [place] [address] [address] Dec, Thoracic disc herniation M51.24 [facility] [address] [address] Dec, [place] [address] [address] Nov, Major depressive disorder in partial rem ission F32.4 and FRANCIS (generalized anxiety disorder) F41.1 [facility] [address] [address] Nov, [facility] [address] [id number] [place] [address] Nov, Dorsalgia, unspecified M54.9 [facility] [address] [id number] [place] [address] Oct, [facility] [address] [id number] [place] [address] September, [facility] [address] [id number] [place] [address] Aug, [facility] [address] [id number] [place] [address] Aug, Major depressive disorder in partial rem ission F32.4 and FRANCIS (generalized anxiety disorder) F41.1 [facility] [address] [id number] [place] [address] Aug, [facility] [address] [id number] [place] [address] Jul, Abnormal mammogram R92.8 [facility] [address] [id number] [place] [address] Jul, [facility] [address] [id number] [place] [address] Jul, [facility] [address] [id number] [place] [address] Jul, [facility] [address] [id number] [place] [address] Jul, [facility] [address] [id number] [place] [address] Jul, [facility] [address] [id number] [place] [address] Jul, [facility] [address] [id number] [place] [address] Jun, Major depressive disorder in partial rem ission F32.4 and FRANCIS (generalized anxiety disorder) F41.1 [facility] [id number] [place] [address] 08 Jun, 2015 [facility] [address] [address] May, [facility] [address] [address] Apr, [facility] [address] [address] Mar, Major depressive disorder, recurrent epi sode, moderate F33.1 ; PTSD (post-traumatic stress disorder) F43.10 and FRANCIS (generalized anxiety disorder) F41.1 [facility] [address] [address] Mar, [facility] [address] [address] Mar, [facility] [address] [address] Mar, [facility] [address] [address] Mar, [facility] [address] [address] 23 Jan, 2015 [facility] [address] [address] 15 Jan, 2015 [facility] [address] [address] 15 Jan, 2015 [facility] [address] [address] 14 Jan, 2015 Thoracic disc herniation 722.11 [facility] [address] [address] Dec, [facility] [address] [address] Dec, [facility] [address] [address] Dec, [facility] [address] [address] 16 Nov, 2014 [facility] [address] [id number] [place] [address] Nov, Generalized anxiety disorder 300.02 ; sttraumatic stress disorder 309.81 and Major depressive disorder, recurrent episode, moderate 296.32 [facility] [id number] [place] [address] Nov, [facility] [id number] [place] [address] Nov, [facility] [address] [id number] [place] [address] Oct, [facility] [id number] [place] [address] Oct, [facility] [id number] [place] [address] Oct, [facility] [id number] [place] [address] September, [facility] [address] [id number] [place] [address] September, [facility] [id number] [place] [address] Aug, [facility] [id number] [place] [address] Aug, [facility] [id number] [place] [address] Jul, [facility] [address] [id number] [place] [address] Jul, [facility] [id number] [place] [address] Jul, [facility] [id number] [place] [address] Jul, [facility] [id number] [place] [address] 16 Jul, 2014 [facility] [address] [id number] [place] [address] Jul, [facility] [address] [id number] [place] [address] Jul, [facility] [address] [id number] [place] [address] Jul, [facility] [address] [id number] [place] [address] Jul, [facility] [address] [id number] [place] [address] Jul, [facility] [address] [id number] [place] [address] Jun, [facility] [address] [id number] [place] [address] Jun, [facility] [id number] [place] [address] Jun, [facility] [address] [id number] [place] [address] May, [facility] [address] [id number] [place] [address] Apr, [facility] [address] [id number] [place] [address] Apr, [facility] [address] [id number] [place] [address] Apr, [facility] [address] [id number] [place] [address] Apr, [facility] [address] [id number] [place] [address] Apr, [facility] [id number] [place] [address] Apr, [facility] [address] [id number] [place] [address] Apr, [facility] [address] [id number] [place] [address] Apr, [facility] [address] [facility] [id number] [place] [address] Mar, 2013 [facility] [address] [id number] [place] [address] Mar, 2013 [facility] [address] [id number] [place] [address] Mar, 2013 [facility] [address] [id number] [place] [address] Mar, 2013 [facility] [address] [facility] [id number] [place] [address] Mar, 2013 [facility] [address] [id number] [place] [address] Mar, [facility] [address] [id number] [place] [address] Mar, 2013 [facility] [address] [id number] [place] [address] Mar, 2013 [facility] [address] [id number] [place] [address] Mar, 2013 [facility] [address] [id number] [place] [address] Mar, [facility] [address] [id number] [place] [address] Mar, 2013 [facility] [address] [id number] [place] [address] 14 Mar, 2013 [facility] [address] [id number] [place] [address] 14 Mar, 2013 [facility] [address] [id number] [place] [address] 07 Mar, 2013 [facility] [address] [id number] [place] [address] 07 Mar, 2013 [facility] [address] [id number] [place] [address] 06 Mar, 2013 [facility] [address] [id number] [place] [address] 06 Mar, 2013 [facility] [address] [facility] [id number] [place] [address] Sep, 2013 [facility] [address] [id number] [place] [address] Jan, 2013 [facility] [address] [id number] [place] [address] 09 Sep, 2013 [facility] [address] [id number] [place] [address] 09 Sep, 2013 [facility] [address] [id number] [place] [address] 05 Sep, 2013 [facility] [address] [id number] [place] [address] 05 Sep, 2013 [facility] [address] [id number] [place] [address] 05 Sep, 2013 [facility] [address] [id number] [place] [address] 05 Sep, 2013 [facility] [address] [id number] [place] [address] Sep, 2013 [facility] [address] [id number] [place] [address] Sep, 2013 [facility] [address] [id number] [place] [address] Sep, 2013 [facility] [address] [id number] [place] [address] Sep, 2013 [facility] [address] [id number] [place] [address] Jan, 2013 [facility] [address] [id number] [place] [address] Dec, 2013 [facility] [address] [id number] [place] [address] Dec, 2013 [facility] [address] [id number] [place] [address] Dec, 2013 [facility] [address] [id number] [place] [address] Dec, [facility] [address] [id number] [place] [address] Dec, [facility] [address] [id number] [place] [address] Dec, Via [facility] IP 1 [facility] [id number] Dec, [facility] 1 [facility] [id number] Dec, [facility] [address] [id number] [place] [address] Dec, [facility] [address] [id number] [place] [address] Dec, [facility] [address] [id number] [place] [address] Dec, [facility] [address] [id number] [place] [address] Dec, [facility] [address] [id number] [place] [address] Nov, [facility] [address] [id number] [place] [address] Nov, [facility] [address] [id number] [place] [address] Nov, [facility] [address] [id number] [place] [address] Nov, [facility] [address] [id number] [place] [address] Nov, [facility] [address] [id number] [place] [address] Nov, [facility] [address] [id number] [place] [address] Nov, [facility] [address] [id number] [place] [id number] Nov, [facility] [address] [id number] [facility] [place] [address] Nov, [facility] [address] [facility] [id number] [facility] [place] [address] Nov, [facility] [address] [facility] [id number] [place] [address] Nov, [facility] [address] [facility] [id number] [place] [address] Nov, [facility] [address] [facility] [id number] [place] [address] Nov, [facility] [address] [facility] [id number] [place] [address] Oct, [facility] [address] [facility] [id number] [place] [id number] Oct, [facility] [address] [id number] [place] [address] Oct, [facility] [address] [id number] [place] [address] Oct, [facility] [address] [facility] [id number] [place] [id number] Oct, [facility] [address] [id number] [place] [address] Oct, [facility] [address] [id number] [place] [address] Oct, [facility] [address] [facility] [id number] [place] [address] Oct, [facility] [address] [facility] [id number] [place] [address] Oct, [facility] [address] [id number] [place] [address] Oct, [facility] [address] [facility] [id number] [place] [id number] Oct, [facility] [address] [id number] [place] [address] Oct, [facility] [address] [facility] [id number] [place] [address] September, [facility] [address] [id number] [place] [address] September, [facility] [address] [id number] [place] [address] September, [facility] [address] [id number] [place] [address] September, [facility] [address] [facility] [id number] [place] [address] Aug, [facility] [address] [id number] [place] [address] Aug, [facility] [address] [id number] [place] [address] Aug, [facility] [address] [id number] [place] [address] Aug, [facility] [address] [id number] [place] [address] Aug, [facility] [address] [id number] [place] [address] Aug, [facility] [address] [id number] [place] [id number] Aug, [facility] [address] [id number] [place] [address] Jul, [facility] [address] [id number] [place] [id number] Jul, [facility] [address] [id number] [place] [address] Jul, [facility] [address] [id number] [place] [address] Jul, [facility] [address] [id number] [place] [address] Jul, [facility] [address] [id number] [place] [address] Jul, [facility] [address] [facility] [id number] [place] [address] Jul, [facility] [address] [facility] [id number] [place] [address] Jul, [facility] [address] [id number] [place] [address] Jul, [facility] [address] [id number] [place] [address] Jul, [facility] [address] [id number] [place] [address] Jul, [facility] [address] [id number] [place] [address] Jul, [facility] [address] [id number] [place] [address] 14 Jul, 2013 [facility] [address] [id number] [place] [address] Jul, [facility] [address] [id number] [place] [address] Jul, [facility] [address] [id number] [place] [address] Jul, [facility] [address] [id number] [place] [address] Jul, [facility] [address] [id number] [place] [address] Jul, [facility] [address] [facility] [id number] [place] [address] Jun, [facility] [address] [id number] [place] [address] Jun, [facility] [address] [id number] [place] [address] Jun, [facility] [address] [id number] [place] [address] Jun, [facility] [address] [id number] [place] [address] 14 Jun, 2013 [facility] [address] [id number] [place] [address] 14 Jun, 2013 [facility] [address] [id number] [place] [address] 14 Jun, 2013 [facility] [address] [id number] [place] [address] 14 Jun, 2013 [facility] [address] [id number] [place] [address] 14 Jun, 2013 [facility] [address] [id number] [place] [address] 14 Jun, 2013 [facility] [address] [id number] [place] [address] 27 May, 2013 [facility] [address] [id number] [place] [address] 27 May, 2013 [facility] [address] [id number] [place] [address] 26 May, 2013 [facility] [address] [id number] [place] [address] 19 May, 2013 [facility] [address] [id number] [place] [address] 19 May, 2013 [facility] [address] [id number] [place] [address] 16 May, 2013 [facility] [address] [id number] [place] [address] 16 May, 2013 [facility] [address] [id number] [place] [address] 16 May, 2013 [facility] [address] [id number] [place] [address] 16 May, 2013 [facility] [address] [id number] [place] [address] 13 May, 2013 [facility] [address] [id number] [place] [address] 13 May, 2012 [facility] [address] [id number] [place] [address] May, [facility] [address] [id number] [place] [address] Apr, [facility] [address] [id number] [place] [address] 18 Apr, 2013 [facility] [address] [id number] [place] [address] 18 Apr, 2013 [facility] [address] [id number] [place] [address] Apr, [facility] [address] [id number] [place] [address] Apr, [facility] [address] [id number] [place] [address] 08 Apr, 2013 [facility] [address] [id number] [place] [address] 08 Apr, 2013 [facility] [address] [id number] [place] [address] 07 Apr, 2013 [facility] [address] [id number] [place] [address] Apr, [facility] [address] [id number] [place] [address] 07 Apr, 2013 [facility] [address] [id number] [place] [address] Apr, [facility] [address] [id number] [place] [address] Mar, [facility] [address] [id number] [place] [address] Mar, [facility] [address] [id number] [place] [address] Mar, [facility] [address] [id number] [place] [address] Mar, [facility] [address] [id number] [facility] [place] [address] Mar, [facility] [address] [facility] [id number] [place] [address] Mar, [facility] [address] [facility] [id number] [place] [address] Mar, [facility] [address] [id number] [place] [address] Mar, [facility] [address] [facility] [id number] [place] [address] Mar, [facility] [address] [facility] [id number] [place] [address] Mar, [facility] [address] [id number] [place] [address] Mar, [facility] [address] [id number] [place] [address] Mar, [facility] [address] [id number] [place] [address] 30 Jan, 2013 [facility] [address] [facility] [id number] [place] [address] 25 Jan, 2013 [facility] [address] [id number] [place] [address] Jan, [facility] [address] [id number] [place] [address] Jan, [facility] [address] [id number] [place] [address] Dec, [facility] [address] [facility] [id number] [place] [address] Dec, [facility] [address] [id number] [place] [address] Dec, [facility] [address] [facility] [id number] [place] [address] Dec, [facility] [address] [id number] [place] [address] Dec, [facility] [address] [id number] [place] [address] Dec, [facility] [address] [id number] [place] [address] Dec, [facility] [address] [id number] [place] [address] Dec, [facility] [address] [id number] [place] [address] Dec, [facility] [address] [facility] [id number] [place] [address] Nov, [facility] [address] [id number] [place] [address] Nov, [facility] [address] [id number] [place] [address] Nov, [facility] [address] [id number] [place] [address] Nov, [facility] [address] [id number] [place] [address] Nov, [facility] [address] [id number] [place] [address] Nov, [facility] [address] [id number] [place] [address] Nov, [facility] [address] [id number] [place] [address] Nov, [facility] [address] [id number] [place] [address] Oct, [facility] [address] [id number] [place] [address] Oct, [facility] [address] [id number] [place] [address] Oct, [facility] [address] [id number] [place] [address] Oct, [facility] [address] [id number] [facility] [place] [address] Oct, [facility] [address] [facility] [id number] [facility] [place] [address] Oct, [facility] [address] [facility] [id number] [facility] [place] [address] Oct, [facility] [address] [id number] [facility] [place] [address] Oct, [facility] [address] [id number] [facility] [place] [address] 19 Oct, 2012 [facility] [address] [facility] [id number] [facility] [place] [address] 18 Oct, 2012 [facility] [address] [id number] [facility] [place] [address] 17 Oct, 2012 [facility] [address] [id number] [facility] [place] [address] 14 Oct, 2012 [facility] [address] [id number] [place] [address] 07 Oct, 2012 [facility] [address] [facility] [id number] [facility] [place] [address] 30 Sep, 2012 [facility] [address] [id number] [facility] [place] [address] September, [facility] [address] [id number] [place] [address] 15 Sep, 2012 [facility] [address] [id number] [facility] [place] [address] 25 Aug, 2012 [facility] [address] [facility] [id number] [facility] [place] [address] 24 Aug, 2012 [facility] [address] [id number] [facility] [place] [address] 18 Aug, 2012 [facility] [address] [id number] [facility] [place] [address] 18 Aug, 2012 [facility] [address] [id number] [facility] [place] [address] 18 Aug, 2012 [facility] [address] [id number] [place] [address] 08 Aug, 2012 [facility] [address] [id number] [place] [address] Aug, [facility] [address] [id number] [place] [address] Jul, [facility] [address] [id number] [place] [address] Jul, [facility] [address] [id number] [place] [address] Jul, [facility] [address] [id number] [place] [address] Jul, [facility] [address] [id number] [place] [address] Jul, [facility] [address] [id number] [place] [address] Jul, [facility] [address] [id number] [place] [address] Jul, [facility] [address] [id number] [place] [address] Jul, [facility] [address] [id number] [place] [address] Jul, [facility] [address] [id number] [place] [address] Jul, [facility] [address] [id number] [place] [address] Jul, [facility] [address] [id number] [place] [address] Jul, [facility] [address] [id number] [place] [address] Jul, [facility] [address] [id number] [place] [address] Jun, [facility] [address] [id number] [place] [address] Jun, [facility] [address] [facility] [id number] [place] [address] Jun, [facility] [address] [id number] [place] [address] 17 Jun, 2012 [facility] [address] [id number] [place] [address] 15 Jun, 2012 [facility] [address] [id number] [place] [address] 14 Jun, 2012 [facility] [address] [id number] [place] [address] 08 Jun, 2012 [facility] [address] [id number] [place] [address] May, [facility] [address] [id number] [place] [address] May, [facility] [address] [id number] [place] [address] May, [facility] [address] [id number] [place] [address] May, [facility] [address] [id number] [place] [address] May, [facility] [address] [id number] [place] [address] May, [facility] [address] [id number] [place] [address] May, [facility] [address] [id number] [place] [address] May, [facility] [address] [id number] [place] [address] May, [facility] [address] [id number] [place] [address] May, [facility] [address] [id number] [place] [address] Apr, [facility] [address] [id number] [place] [address] 30 Apr, 2012 [facility] [address] [id number] [place] [address] Apr, [facility] [address] [id number] [place] [address] Apr, [facility] [address] [id number] [place] [address] Apr, [facility] [address] [id number] [place] [address] Apr, [facility] [address] [id number] [place] [address] Apr, [facility] [address] [id number] [place] [address] Apr, [facility] [address] [id number] [place] [address] Apr, [facility] [address] [id number] [place] [address] Apr, [facility] [address] [id number] [place] [address] Apr, [facility] [address] [id number] [place] [address] Apr, [facility] [address] [id number] [place] [address] Mar, [facility] [address] [id number] [place] [address] Mar, [facility] [address] [id number] [place] [address] Mar, [facility] [address] [id number] [place] [address] Mar, [facility] [address] [id number] [place] [address] Mar, [facility] [address] [id number] [place] [address] Mar, [facility] [address] [id number] [place] [address] Mar, 2011 [facility] [address] [id number] [place] [address] Mar, 2011 [facility] [address] [id number] [place] [address] Mar, 2011 [facility] [address] [id number] [place] [address] Mar, 2011 [facility] [address] [id number] [place] [address] Mar, 2011 [facility] [address] [id number] [place] [address] Mar, 2011 [facility] [address] [id number] [place] [address] Mar, [facility] [address] [id number] [place] [address] Mar, [facility] [address] [id number] [place] [address] Mar, [facility] [address] [id number] [place] [address] 02 Mar, 2012 [facility] [address] [id number] [place] [address] 25 Jan, 2011 [facility] [address] [id number] [place] [address] 24 Sep, 2011 [facility] [address] [id number] [place] [address] 22 Sep, 2011 [facility] [address] [id number] [place] [address] 22 Sep, 2011 [facility] [address] [id number] [place] [address] 21 Sep, 2011 [facility] [address] [id number] [place] [address] 18 Sep, 2011 [facility] [address] [id number] [place] [address] 14 Jan, 2012 [facility] [address] [id number] [place] [address] 07 Jan, 2012 [facility] [address] [id number] [facility] [place] [address] 15 Dec, 2011 [facility] [address] [id number] [place] [address] 10 Dec, 2011 [facility] [address] [id number] [place] [address] Dec, [facility] [address] [id number] [facility] [place] [address] Dec, [facility] [address] [id number] [place] [address] Dec, [facility] [address] [id number] [place] [address] Dec, [facility] [address] [id number] [place] [address] Dec, [facility] [address] [id number] [place] [address] Nov, [facility] [address] [id number] [place] [address] Oct, [facility] [address] [id number] [place] [address] Aug, [facility] [address] [id number] [place] [address] 22 Jul, 2011 [facility] [address] [id number] [place] [address] 19 Jul, 2011 [facility] [address] [id number] [place] [address] 16 Jul, 2011 [facility] [address] [id number] [place] [address] 14 Jul, 2011 [facility] [address] [id number] [place] [address] 07 Jul, 2011 [facility] [address] [id number] [place] [address] Jul, [facility] [address] [id number] [place] [address] Jul, [facility] [address] [id number] [place] [address] 15 Jul, 2011 [facility] [address] [id number] [place] [address] Jul, [facility] [address] [id number] [place] [address] Jul, [facility] [address] [id number] [place] [address] Jul, [facility] [address] [id number] [place] [address] Jun, [facility] [address] [id number] [place] [address] Jun, [facility] [address] [id number] [place] [address] Jun, [facility] [address] [id number] [place] [address] Jun, [facility] [address] [id number] [place] [address] Jun, [facility] [address] [id number] [place] [address] Jun, [facility] [address] [id number] [place] [address] Jun, [facility] [address] [id number] [place] [address] May, [facility] [address] [id number] [place] [address] May, [facility] [address] [id number] [place] [address] May, [facility] [address] [id number] [place] [id number] 14 May, 2011 [facility] [id number] [place] [address] May, [facility] [id number] [place] [address] May, [facility] [id number] [place] [address] May, [facility] [id number] [place] [address] May, [facility] [id number] [place] [address] May, [facility] [address] [address] May, [facility] [id number] [place] [address] Apr, [facility] [address] [address] Apr, [facility] [id number] [place] [address] Apr, [facility] [address] [address] Apr, [facility] [id number] [place] [address] Mar, [facility] [address] [address] Mar, [facility] [id number] [place] [address] Mar, [facility] [id number] [place] [address] Mar, IMMUNIZATIONS No Known Immunizations SOCIAL HISTORY Never Assessed REASON FOR VISIT PLAN OF CARE VITAL SIGNS MEDICATIONS Unknown Medications RESULTS No Results PROCEDURES Procedure Date Ordered Result Body Site BLOOD PRESSURE, MEASURED September 08, 2013 INSTRUCTIONS MEDICATIONS ADMINISTERED No Known [...]
--- OUTSIDE RECORDS SUMMARY | 2020-01-03 18:38 | XMS REPORT | Continuity of Care Document ---
Demographics Preferred Language Unknown Marital Status Unknown [employer]ar[employer] Affiliation Unknown Race Unknown Ethnic Group Unknown Author Organization Unknown Address Unknown Phone Unavailable Allergies Active Description [...] 02/06/2012 Yes Ambien 10 mg tablet Drug Aller gy N/A N/A 08/06/2012 Yes Ambien 10 mg tablet Drug Aller gy 08/06/2012 Yes Nitrofurantoin Macrocrystal [id number] Drug Allergy Unknown N/A 09/25/2013 Yes tramadol [id number] Drug Allergy Unknown HAS TAKEN BEFOR 01/10/2014 Yes cephalexin [id number] Drug Allerg y Mild NAUSEA 11/07/2014 Yes hydrocodone [id number] Drug Aller gy Unknown itching 12/28/2017 Yes ketorolac tromethamine [id number] Drug Allergy Unknown N/A 12/28/2017 Yes levofloxacin [id number] Drug Allergy Unknown N/A 12/28/[id number] ug Allergy Unknown N/A 12/28/2017 Yes ondansetron [id number] Drug Aller gy Unknown N/A 12/28/2017 Yes Sulfa (Sulfonamide Antibiotics) [id number] Drug Allergy Unknown N/A 018 Yes tramadol [id number] Drug Allergy Unknown N/A 12/28/2017 Yes hydrocodone [id number] Drug Aller gy Unknown itching. Pt has 12/29/2017 Yes famotidine [id number] Drug Allerg y Unknown dry heaves 01/13/2018 Yes ketorolac [id number] Drug Allergy Unknown N/A 01/13/2018 Yes SULFA SULFA Unknown N/A 01/13/2018 Yes codeine [id number] Drug Allergy Unknown N/A 01/26/2018 Medications There is no data. 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, 01/12/2006 [...] 09/07/2010 Ot 112.0 THRUSH 09/07/2010 Ot 300.00 ANX IETY STATE NOS 09/07/2010 Ot 346.90 CASTRO DAYNE UNSPECIFIED W/O INTRACT MGRN W/ 09/07/2010 Ot 368.2 DIPL OPIA 09/07/2010 Ot 466.0 ACUT E BRONCHITIS 09/07/2010 Ot 729.1 MYAL NIA AND MYOSITIS NOS 09/07/2010 Ot V58.69 OTH MED,LT,CURRENT USE 09/10/2010 Ot 786.50 09/10/2010 Ot 786.52 09/19/2010 311 MO DEP RESS NOS 09/19/2010 REYNALDO VIEIRA APRN 31 1 MO DEPRESS NOS 09/19/2010 311 MO DEP RESS NOS 09/19/2010 KIKA ARGUETA DO K 311 MO DEPRESS NOS 09/19/2010 311 MO DEP RESS NOS 09/19/2010 [facility], ARASH R 311 MO DEPRESS NOS 09/19/2010 311 MO DEP RESS NOS 09/19/2010 [facility], ARASH R 311 MO DEPRESS NOS 09/19/2010 MARLENE CABRERA APRN 311 MO DEPRESS NOS 09/19/2010 311 MO DEP RESS NOS 09/19/2010 311 MO DEP RESS NOS 09/19/2010 311 MO DEP RESS NOS 09/19/2010 311 MO DEP RESS NOS 09/19/2010 311 MO DEP RESS NOS 09/19/2010 311 MO DEP RESS NOS 09/19/2010 311 MO DEP RESS NOS 09/19/2010 311 MO DEP RESS NOS 09/19/2010 311 MO DEP RESS NOS 09/19/2010 311 MO DEP RESS NOS 09/19/2010 311 MO DEP RESS NOS 09/19/2010 311 MO DEP RESS NOS 09/19/2010 311 MO DEP RESS NOS 09/19/2010 REYNALDO VIEIRA APRN 31 1 MO DEPRESS NOS 09/19/2010 REYNALDO VIEIRA APRN T 31 1 MO DEPRESS NOS 09/19/2010 REYNALDO VIEIRA APRN 31 1 MO DEPRESS NOS 09/19/2010 SABIHA MAST MD 311 MO DEPRESS NOS 09/19/2010 KIKA ARGUETA DO K 311 MO DEPRESS NOS 09/19/2010 MARLENE CABRERA APRN 311 MO DEPRESS NOS 09/19/2010 MARLENE CABRERA APRN 311 MO DEPRESS NOS 09/19/2010 [facility], ARASH R 311 MO DEPRESS NOS 09/19/2010 BRODY ARAYA MD 311 MO DEPRESS NOS 09/19/2010 REYNALDO VIEIRA APRN 31 1 MO DEPRESS NOS 09/19/2010 [facility], ARASH R 311 MO DEPRESS NOS 09/19/2010 REYNALDO VIEIRA APRN T 31 1 MO DEPRESS NOS 09/19/2010 KIKA ARGUETA DO K 311 MO DEPRESS NOS 09/19/2010 [facility], ARASH R 311 MO DEPRESS NOS 09/19/2010 MARLENE CABRERA APRN 311 MO DEPRESS NOS 09/19/2010 [facility], ARASH R 311 MO DEPRESS NOS 09/19/2010 SANDI LASSITER, ITZ J 311 MO DEPRESS NOS 09/19/2010 SANDI LASSITER, ITZ J 311 MO DEPRESS NOS 09/19/2010 MARSHAL SAUCEDO, BRODY N 311 MO DEPRESS NOS 09/19/2010 BRODY ARAYA MD N 311 MO DEPRESS NOS 09/19/2010 SANDI LASSITER, ITZ J 311 MO DEPRESS NOS 09/19/2010 [facility], BENJI 31 1 MO DEPRESS NOS 09/19/2010 [facility], BENJI 31 1 MO DEPRESS NOS 09/19/2010 SABIHA MAST MD 311 MO DEPRESS NOS 09/19/2010 KIKA ARGUETA DO 311 MO DEPRESS NOS 09/19/2010 SANDI FIGURE MODEL, ITZ J 311 MO DEPRESS NOS 09/19/2010 SANDI LASSITER ITZ J 311 MO DEPRESS NOS 09/19/2010 SANDI LASSITER ITZ J 311 MO DEPRESS NOS 09/19/2010 MASSIEL FERGUSON DO 311 MO DEPRESS NOS 09/19/2010 SANDI LASSITER, ITZ J 311 MO DEPRESS NOS 09/19/2010 KIKA ARGUETA DO 311 MO DEPRESS NOS 10/02/2010 Ot 327.24 10/02/2010 Ot 401.9 10/02/2010 Ot 786.09 10/05/2010 Ot 466.0 10/05/2010 Ot 786.05 10/11/2010 Ot 341.9 10/11/2010 Ot 401.9 10/11/2010 Ot 780.2 10/26/2010 Ot 599.0 10/26/2010 Ot 780.2 11/21/2010 Ot 466.0 11/21/2010 Ot 786.2 12/13/2010 Ot 490 12/13/2010 Ot 599.0 12/13/2010 Ot 786.2 12/28/2010 Ot 780.2 03/17/2011 250.00 HOLLY BETES II CONTROLLED (UNCOMPLICATED) 03/17/2011 272.4 HYPE RLIPIDEMIA 03/17/2011 300.00 ANX IETY UNSPEC 03/17/2011 530.81 GERD 03/17/2011 729.1 FIBR OMYALGIA 03/17/2011 DARIEL LYNNREYNALDO Linda 250.00 DIABETES II CONTROLLED (UNCOMPLICATED) 03/17/2011 DARIEL FIGURE MODELREYNALDO Linda 27 2.4 HYPERLIPIDEMIA 03/17/2011 DARIEL FIGURE MODELREYNALDO Linda 300.00 ANXIETY UNSPEC 03/17/2011 DARIEL LYNNREYNALDO Linda T 530.81 GERD 03/17/2011 DARIEL LYNNREYNALDO Linda Jayant 72 9.1 FIBROMYALGIA 03/17/2011 250.00 HOLLY BETES II CONTROLLED (UNCOMPLICATED) 03/17/2011 272.4 HYPE RLIPIDEMIA 03/17/2011 300.00 ANX IETY UNSPEC 03/17/2011 530.81 GERD 03/17/2011 729.1 FIBR OMYALGIA 03/17/2011 ARGUETA DO, KIKA K 250.00 DIABETES II CONTROLLED (UNCOMPLICATED) 03/17/2011 ARGUETA DO KIKA K 272.4 HYPERLIPIDEMIA 03/17/2011 ARGUETA DO, KIKA K 300.00 ANXIETY UNSPEC 03/17/2011 ARGUETA DO, KIKA K 530.81 GERD 03/17/2011 ARGUETA IKKA K 729.1 FIBROMYALGIA 03/17/2011 250.00 HOLLY BETES II CONTROLLED (UNCOMPLICATED) 03/17/2011 272.4 HYPE RLIPIDEMIA 03/17/2011 300.00 ANX IETY UNSPEC 03/17/2011 530.81 GERD 03/17/2011 729.1 FIBR OMYALGIA 03/17/2011 [facility], ARASH R 250.00 DIABETES II CONTROLLED (UNCOMPLICATED) 03/17/2011 [facility], ARASH R 272.4 HYPERLIPIDEMIA 03/17/2011 [facility], ARASH R 300.00 ANXIETY UNSPEC 03/17/2011 [facility], ARASH R 530.81 GERD 03/17/2011 [facility], ARASH R 729.1 FIBROMYALGIA 03/17/2011 250.00 HOLLY BETES II CONTROLLED (UNCOMPLICATED) 03/17/2011 272.4 HYPE RLIPIDEMIA 03/17/2011 300.00 ANX IETY UNSPEC 03/17/2011 530.81 GERD 03/17/2011 729.1 FIBR OMYALGIA 03/17/2011 [facility], ARASH R 250.00 DIABETES II CONTROLLED (UNCOMPLICATED) 03/17/2011 [facility], ARASH R 272.4 HYPERLIPIDEMIA 03/17/2011 [facility], ARASH R 300.00 ANXIETY UNSPEC 03/17/2011 [facility], ARASH R 530.81 GERD 03/17/2011 [facility], ARASH R 729.1 FIBROMYALGIA 03/17/2011 MARLENE CABRERA APRN 250.00 DIABETES II CONTROLLED (UNCOMPLICATED) 03/17/2011 MARLENE CABRERA APRN 272.4 HYPERLIPIDEMIA 03/17/2011 MARLENE CABRERA APRN 300.00 ANXIETY UNSPEC 03/17/2011 MARLENE CABRERA APRN 530.81 GERD 03/17/2011 MARLENE CABRERA APRN 729.1 FIBROMYALGIA 03/17/2011 250.00 HOLLY BETES II CONTROLLED (UNCOMPLICATED) 03/17/2011 272.4 HYPE RLIPIDEMIA 03/17/2011 300.00 ANX IETY UNSPEC 03/17/2011 530.81 GERD 03/17/2011 729.1 FIBR OMYALGIA 03/17/2011 250.00 HOLLY BETES II CONTROLLED (UNCOMPLICATED) 03/17/2011 272.4 HYPE RLIPIDEMIA 03/17/2011 300.00 ANX IETY UNSPEC 03/17/2011 530.81 GERD 03/17/2011 729.1 FIBR OMYALGIA 03/17/2011 250.00 HOLLY BETES II CONTROLLED (UNCOMPLICATED) 03/17/2011 272.4 HYPE RLIPIDEMIA 03/17/2011 300.00 ANX IETY UNSPEC 03/17/2011 530.81 GERD 03/17/2011 729.1 FIBR OMYALGIA 03/17/2011 250.00 HOLLY BETES II CONTROLLED (UNCOMPLICATED) 03/17/2011 272.4 HYPE RLIPIDEMIA 03/17/2011 300.00 ANX IETY UNSPEC 03/17/2011 530.81 GERD 03/17/2011 729.1 FIBR OMYALGIA 03/17/2011 250.00 HOLLY BETES II CONTROLLED (UNCOMPLICATED) 03/17/2011 272.4 HYPE RLIPIDEMIA 03/17/2011 300.00 ANX IETY UNSPEC 03/17/2011 530.81 GERD 03/17/2011 729.1 FIBR OMYALGIA 03/17/2011 250.00 HOLLY BETES II CONTROLLED (UNCOMPLICATED) 03/17/2011 272.4 HYPE RLIPIDEMIA 03/17/2011 300.00 ANX IETY UNSPEC 03/17/2011 530.81 GERD 03/17/2011 729.1 FIBR OMYALGIA 03/17/2011 250.00 HOLLY BETES II CONTROLLED (UNCOMPLICATED) 03/17/2011 272.4 HYPE RLIPIDEMIA 03/17/2011 300.00 ANX IETY UNSPEC 03/17/2011 530.81 GERD 03/17/2011 729.1 FIBR OMYALGIA 03/17/2011 250.00 HOLLY BETES II CONTROLLED (UNCOMPLICATED) 03/17/2011 272.4 HYPE RLIPIDEMIA 03/17/2011 300.00 ANX IETY UNSPEC 03/17/2011 530.81 GERD 03/17/2011 729.1 FIBR OMYALGIA 03/17/2011 250.00 HOLLY BETES II CONTROLLED (UNCOMPLICATED) 03/17/2011 272.4 HYPE RLIPIDEMIA 03/17/2011 300.00 ANX IETY UNSPEC 03/17/2011 530.81 GERD 03/17/2011 729.1 FIBR OMYALGIA 03/17/2011 250.00 HOLLY BETES II CONTROLLED (UNCOMPLICATED) 03/17/2011 272.4 HYPE RLIPIDEMIA 03/17/2011 300.00 ANX IETY UNSPEC 03/17/2011 530.81 GERD 03/17/2011 729.1 FIBR OMYALGIA 03/17/2011 250.00 HOLLY BETES II CONTROLLED (UNCOMPLICATED) 03/17/2011 272.4 HYPE RLIPIDEMIA 03/17/2011 300.00 ANX IETY UNSPEC 03/17/2011 530.81 GERD 03/17/2011 729.1 FIBR OMYALGIA 03/17/2011 250.00 HOLLY BETES II CONTROLLED (UNCOMPLICATED) 03/17/2011 272.4 HYPE RLIPIDEMIA 03/17/2011 300.00 ANX IETY UNSPEC 03/17/2011 530.81 GERD 03/17/2011 729.1 FIBR OMYALGIA 03/17/2011 250.00 HOLLY BETES II CONTROLLED (UNCOMPLICATED) 03/17/2011 272.4 HYPE RLIPIDEMIA 03/17/2011 300.00 ANX IETY UNSPEC 03/17/2011 530.81 GERD 03/17/2011 729.1 FIBR OMYALGIA 03/17/2011 REYNALDO VIEIRA APRN 250.00 DIABETES II CONTROLLED (UNCOMPLICATED) 03/17/2011 REYNALDO VIEIRA APRN 27 2.4 HYPERLIPIDEMIA 03/17/2011 REYNALDO VIEIRA APRN 300.00 ANXIETY UNSPEC 03/17/2011 REYNALDO VIEIRA APRN 530.81 GERD 03/17/2011 REYNALDO VIEIRA APRN T 72 9.1 FIBROMYALGIA 03/17/2011 DARIEL FIGURE MODELREYNALDO Linda T 250.00 DIABETES II CONTROLLED (UNCOMPLICATED) 03/17/2011 DARIEL FIGURE MODELREYNALDO Linda T 27 2.4 HYPERLIPIDEMIA 03/17/2011 DARIEL LYNNAlexei REYNALDO T 300.00 ANXIETY UNSPEC 03/17/2011 DARIEL LYNNREYNALDO Linda T 530.81 GERD 03/17/2011 REYNALDO VIEIRA APRN T 72 9.1 FIBROMYALGIA 03/17/2011 DARIEL FIGURE MODELREYNALDO Linda T 250.00 DIABETES II CONTROLLED (UNCOMPLICATED) 03/17/2011 DARIEL FIGURE MODELREYNALDO Linda T 27 2.4 HYPERLIPIDEMIA 03/17/2011 DARIEL FIGURE MODELREYNALDO Linda T 300.00 ANXIETY UNSPEC 03/17/2011 DARIEL FIGURE MODELREYNALDO Linda 530.81 GERD 03/17/2011 REYNALDO VIEIRA APRN 72 9.1 FIBROMYALGIA 03/17/2011 SABIHA MAST MD 250.0 0 DIABETES II CONTROLLED (UNCOMPLICATED) 03/17/2011 SABIHA MAST MD 272.4 HYPERLIPIDEMIA 03/17/2011 SABIHA MAST MD 300.0 0 ANXIETY UNSPEC 03/17/2011 SABIHA MAST MD 530.8 1 GERD 03/17/2011 SABIHA MAST MD 729.1 FIBROMYALGIA 03/17/2011 BRO ARGUETA DOA K 250.00 DIABETES II CONTROLLED (UNCOMPLICATED) 03/17/2011 BRO ARGUETA DOA K 272.4 HYPERLIPIDEMIA 03/17/2011 BRO ARGUETA DOA K 300.00 ANXIETY UNSPEC 03/17/2011 ARGUETA DO, KIKA K 530.81 GERD 03/17/2011 BRO ARGUETA DOA K 729.1 FIBROMYALGIA 03/17/2011 MARLENE CABRERA APRN [...] 03/17/2011 MARLENE CABRERA APRN 729.1 FIBROMYALGIA 03/17/2011 [facility], ARASH R 250.00 DIABETES II CONTROLLED (UNCOMPLICATED) 03/17/2011 [facility] 272.4 HYPERLIPIDEMIA 03/17/2011 [facility], ARASH R 300.00 ANXIETY UNSPEC 03/17/2011 [facility], ARASH R 530.81 GERD 03/17/2011 [facility], ARASH R 729.1 FIBROMYALGIA 03/17/2011 BRODY ARAYA MD 250 .00 DIABETES II CONTROLLED (UNCOMPLICATED) 03/17/2011 BRODY ARAYA MD N 272 .4 HYPERLIPIDEMIA 03/17/2011 BRODY ARAYA MD N 300 .00 ANXIETY UNSPEC 03/17/2011 BRODY ARAYA MD N 530 .81 GERD 03/17/2011 BRODY ARAYA MD 729 .1 FIBROMYALGIA 03/17/2011 REYNALDO VIEIRA APRN 250.00 DIABETES II CONTROLLED (UNCOMPLICATED) 03/17/2011 REYNALDO VIEIRA APRN 27 2.4 HYPERLIPIDEMIA 03/17/2011 REYNALDO VEIIRA APRN 300.00 ANXIETY UNSPEC 03/17/2011 REYNALDO VIEIRA APRN 530.81 GERD 03/17/2011 REYNALDO VIEIRA APRN 72 9.1 FIBROMYALGIA 03/17/2011 [facility], ARASH R 250.00 DIABETES II CONTROLLED (UNCOMPLICATED) 03/17/2011 [facility], ARASH R 272.4 HYPERLIPIDEMIA 03/17/2011 [facility] 300.00 ANXIETY UNSPEC 03/17/2011 [facility]ASH [facility] 530.81 GERD 03/17/2011 [facility] 729.1 FIBROMYALGIA 03/17/2011 REYNALDO VIEIRA APRN 250.00 DIABETES II CONTROLLED (UNCOMPLICATED) 03/17/2011 REYNALDO VIEIRA APRN 27 2.4 HYPERLIPIDEMIA 03/17/2011 REYNALDO VIEIRA APRN T 300.00 ANXIETY UNSPEC 03/17/2011 REYNALDO VIEIRA APRN T 530.81 GERD 03/17/2011 REYNALDO VIEIRA APRN 72 9.1 FIBROMYALGIA 03/17/2011 KKIA ARGUETA DO 250.00 DIABETES II CONTROLLED (UNCOMPLICATED) 03/17/2011 BRO ARGUETA DOA K 272.4 HYPERLIPIDEMIA 03/17/2011 ELLIE DE LA TORRE, KIKA K 300.00 ANXIETY UNSPEC 03/17/2011 ELLIE DE LA TORRE, KIKA K 530.81 GERD 03/17/2011 KIKA ARGUETA DO K 729.1 FIBROMYALGIA 03/17/2011 [facility], ARASH R 250.00 DIABETES II CONTROLLED (UNCOMPLICATED) 03/17/2011 [facility], ARASH R 272.4 HYPERLIPIDEMIA 03/17/2011 [facility], ARASH R 300.00 ANXIETY UNSPEC 03/17/2011 [facility], ARASH R 530.81 GERD 03/17/2011 [facility], ARASH R 729.1 FIBROMYALGIA 03/17/2011 MARLENE CABRERA APRN 250.00 DIABETES II CONTROLLED (UNCOMPLICATED) 03/17/2011 MARLENE CABRERA APRN 272.4 HYPERLIPIDEMIA 03/17/2011 MARLENE CABRERA APRN 300.00 ANXIETY UNSPEC 03/17/2011 MARLENE CABRERA APRN 530.81 GERD 03/17/2011 MARLENE CABRERA APRN 729.1 FIBROMYALGIA 03/17/2011 [facility], ARASH R 250.00 DIABETES II CONTROLLED (UNCOMPLICATED) 03/17/2011 [facility], ARASH R 272.4 HYPERLIPIDEMIA 03/17/2011 [facility], ARASH R 300.00 ANXIETY UNSPEC 03/17/2011 [facility], ARASH R 530.81 GERD 03/17/2011 [facility], ARASH R 729.1 FIBROMYALGIA 03/17/2011 ITZ JUNIOR APRN 250.00 DIABETES II CONTROLLED (UNCOMPLICATED) 03/17/2011 ITZ JUNIOR APRN 272.4 HYPERLIPIDEMIA 03/17/2011 ROSA JUNIOR APRNA Merrick 300.00 ANXIETY UNSPEC 03/17/2011 ITZ JUNIOR APRN 530.81 GERD 03/17/2011 ITZ JUNIOR APRN 729.1 FIBROMYALGIA 03/17/2011 ITZ JUNIOR APRN 250.00 DIABETES II CONTROLLED (UNCOMPLICATED) 03/17/2011 ITZ JUNIOR APRN 272.4 HYPERLIPIDEMIA 03/17/2011 ITZ JUNIOR APRN 300.00 ANXIETY UNSPEC 03/17/2011 ITZ JUNIOR APRN 530.81 GERD 03/17/2011 ITZ JUNIOR APRN 729.1 FIBROMYALGIA 03/17/2011 MARSHAL SAUCEDO, BRODY N 250 .00 DIABETES II CONTROLLED (UNCOMPLICATED) 03/17/2011 MARSHAL SAUCEDO, BRODY N 272 .4 HYPERLIPIDEMIA 03/17/2011 ANUPAM ARAYA MDY N 300 .00 ANXIETY UNSPEC 03/17/2011 BRODY ARAYA MD N 530 .81 GERD 03/17/2011 ANUPAM ARAYA MDY N 729 .1 FIBROMYALGIA 03/17/2011 MARSHAL SAUCEDO, BRODY N 250 .00 DIABETES II CONTROLLED (UNCOMPLICATED) 03/17/2011 BRODY ARAYA MD N 272 .4 HYPERLIPIDEMIA 03/17/2011 BRODY ARAYA MD N 300 .00 ANXIETY UNSPEC 03/17/2011 BRODY ARAYA MD N 530 .81 GERD 03/17/2011 BRODY ARAYA MD N 729 .1 FIBROMYALGIA 03/17/2011 ITZ JUNIOR APRN J 250.00 DIABETES II CONTROLLED (UNCOMPLICATED) 03/17/2011 ITZ JUNIOR APRN J 272.4 HYPERLIPIDEMIA 03/17/2011 ITZ JUNIOR APRN J 300.00 ANXIETY UNSPEC 03/17/2011 ITZ JUNIOR APRN 530.81 GERD 03/17/2011 ITZ JUNIOR APRN 729.1 FIBROMYALGIA 03/17/2011 BENJI ACOSTA DDS 250.00 DIABETES II CONTROLLED (UNCOMPLICATED) 03/17/2011 ACOSTA BENJI CARDOZO 27 2.4 HYPERLIPIDEMIA 03/17/2011 ACOSTA MIKES, BENJI 300.00 ANXIETY UNSPEC 03/17/2011 [facility]STA DDS, BENJI 530.81 GERD 03/17/2011 [facility] DDS, BENJI 72 9.1 FIBROMYALGIA 03/17/2011 ACOSTA MIKES, BENJI 250.00 DIABETES II CONTROLLED (UNCOMPLICATED) 03/17/2011 ACOSTA MIKESBENJI 27 2.4 HYPERLIPIDEMIA 03/17/2011 ACOSTA MIKES, BENJI 300.00 ANXIETY UNSPEC 03/17/2011 [facility]STA DDS, BENJI 530.81 GERD 03/17/2011 [facility]STA DDS, BENJI 72 9.1 FIBROMYALGIA 03/17/2011 SABIHA MAST MD 250.0 0 DIABETES II CONTROLLED (UNCOMPLICATED) 03/17/2011 SABIHA MAST MD 272.4 HYPERLIPIDEMIA 03/17/2011 SABIHA MAST MD 300.0 0 ANXIETY UNSPEC 03/17/2011 SABIHA MAST MD 530.8 1 GERD 03/17/2011 SABIHA MAST MD 729.1 FIBROMYALGIA 03/17/2011 ARGUETA DO, KIKA K 250.00 DIABETES II CONTROLLED (UNCOMPLICATED) 03/17/2011 ARGUETA DO KIKA K 272.4 HYPERLIPIDEMIA 03/17/2011 ARGUETA DO, KIKA K 300.00 ANXIETY UNSPEC 03/17/2011 ARGUETA DO, KIKA K 530.81 GERD 03/17/2011 ARGUETA DO, KIKA K 729.1 FIBROMYALGIA 03/17/2011 ROSA JUNIOR APRNA J 250.00 DIABETES II CONTROLLED (UNCOMPLICATED) 03/17/2011 ROSA JUNIOR APRNA J 272.4 HYPERLIPIDEMIA 03/17/2011 ROSA JUNIOR APRNA J 300.00 ANXIETY UNSPEC 03/17/2011 ROSA JUNIOR APRNA J 530.81 GERD 03/17/2011 SANDI LASSITER ITZ J 729.1 FIBROMYALGIA 03/17/2011 SANDI LASSITER, ITZ J 250.00 DIABETES II CONTROLLED (UNCOMPLICATED) 03/17/2011 SANDI LASSITER ITZ J 272.4 HYPERLIPIDEMIA 03/17/2011 SANDI LASSITER, ITZ J 300.00 ANXIETY UNSPEC 03/17/2011 SANDI LASSITER, ITZ J 530.81 GERD 03/17/2011 CLAUDE JUNIOR APRNINDA J 729.1 FIBROMYALGIA 03/17/2011 SANDI LASSITER, ITZ J 250.00 DIABETES II CONTROLLED (UNCOMPLICATED) 03/17/2011 SANDI LASSITER ITZ J 272.4 HYPERLIPIDEMIA 03/17/2011 SANDI FIGURE MODEL, ITZ J 300.00 ANXIETY UNSPEC 03/17/2011 SANDI LASSITER, ITZ J 530.81 GERD 03/17/2011 SANDI LASSITER ITZ J 729.1 FIBROMYALGIA 03/17/2011 MASSIEL FERGUSON DO 250 .00 DIABETES II CONTROLLED (UNCOMPLICATED) 03/17/2011 MASSIEL FERGUSON DO 272 .4 HYPERLIPIDEMIA 03/17/2011 MASSIEL FERGUSON DO 300 .00 ANXIETY UNSPEC 03/17/2011 KADY FERGUSON DOCHARAN Glaser 530 .81 GERD 03/17/2011 MASSIEL FERGUSON DO 729 .1 FIBROMYALGIA 03/17/2011 ITZ JUNIOR APRN 250.00 DIABETES II CONTROLLED (UNCOMPLICATED) 03/17/2011 ITZ JUNIOR APRN J 272.4 HYPERLIPIDEMIA 03/17/2011 ROSA JUNIOR APRNA J 300.00 ANXIETY UNSPEC 03/17/2011 ROSA JUNIOR APRNA J 530.81 GERD 03/17/2011 ROSA JUNIOR APRNA J 729.1 FIBROMYALGIA 03/17/2011 ARGUETA DO KIKA K 250.00 DIABETES II CONTROLLED (UNCOMPLICATED) 03/17/2011 ARGUETA DO KIKA K 272.4 HYPERLIPIDEMIA 03/17/2011 BRO ARGUETA DOA K 300.00 ANXIETY UNSPEC 03/17/2011 BRO ARGUETA DOA K 530.81 GERD 03/17/2011 BRO ARGUETA DOA K 729.1 FIBROMYALGIA 04/02/2011 465.9 UPPE R RESPIRATORY INFECTION 04/02/2011 REYNALDO VIEIRA APRN 46 5.9 UPPER RESPIRATORY INFECTION 04/02/2011 465.9 UPPE R RESPIRATORY INFECTION 04/02/2011 KIKA ARGUETA DO 465.9 UPPER RESPIRATORY INFECTION 04/02/2011 465.9 UPPE R RESPIRATORY INFECTION 04/02/2011 [facility] 465.9 UPPER RESPIRATORY INFECTION 04/02/2011 465.9 UPPE R RESPIRATORY INFECTION 04/02/2011 [facility], ARASH R 465.9 UPPER RESPIRATORY INFECTION 04/02/2011 MARLENE CABRERA APRN 465.9 UPPER RESPIRATORY INFECTION 04/02/2011 465.9 Uppe r Respiratory Infection 04/02/2011 465.9 Uppe r Respiratory Infection 04/02/2011 465.9 Uppe r Respiratory Infection 04/02/2011 465.9 Uppe r Respiratory Infection 04/02/2011 465.9 Uppe r Respiratory Infection 04/02/2011 465.9 Uppe r Respiratory Infection 04/02/2011 465.9 Uppe r Respiratory Infection 04/02/2011 465.9 Uppe r Respiratory Infection 04/02/2011 465.9 Uppe r Respiratory Infection 04/02/2011 465.9 Uppe r Respiratory Infection 04/02/2011 465.9 Uppe r Respiratory Infection 04/02/2011 465.9 Uppe r Respiratory Infection 04/02/2011 465.9 Uppe r Respiratory Infection 04/02/2011 DARIEL LASSITER, REYNALDO T 46 5.9 Upper Respiratory Infection 04/02/2011 DARIEL LASSITER REYNALDO T 46 5.9 Upper Respiratory Infection 04/02/2011 DARIEL MAIKOL REYNALDO T 46 5.9 Upper Respiratory Infection 04/02/2011 SABIHA MAST MD 465.9 Upper Respiratory Infection 04/02/2011 ARGUETA DO KIKA K 465.9 Upper Respiratory Infection 04/02/2011 MARLENE CABRERA APRN 465.9 Upper Respiratory Infection 04/02/2011 MARLENE CABRERA APRN D 465.9 Upper Respiratory Infection 04/02/2011 [facility], ARASH R 465.9 Upper Respiratory Infection 04/02/2011 BRODY ARAYA MD 465 .9 Upper Respiratory Infection 04/02/2011 REYNALDO VIEIRA APRN T 46 5.9 Upper Respiratory Infection 04/02/2011 [facility], ARASH R 465.9 Upper Respiratory Infection 04/02/2011 REYNALDO VIEIRA APRN T 46 5.9 Upper Respiratory Infection 04/02/2011 BRO ARGUETA DOA K 465.9 Upper Respiratory Infection 04/02/2011 [facility], ARASH R 465.9 Upper Respiratory Infection 04/02/2011 MARLENE CABRERA APRN D 465.9 Upper Respiratory Infection 04/02/2011 [facility], ARASH R 465.9 Upper Respiratory Infection 04/02/2011 ITZ JUNIOR APRN J 465.9 Upper Respiratory Infection 04/02/2011 ITZ JUNIOR APRN J 465.9 Upper Respiratory Infection 04/02/2011 BRODY ARAYA MD 465 .9 Upper Respiratory Infection 04/02/2011 BRDOY ARAYA MD 465 .9 Upper Respiratory Infection 04/02/2011 ITZ JUNIOR APRN J 465.9 Upper Respiratory Infection 04/02/2011 ACOSTARIVAS SALINAS DDSW 46 5.9 Upper Respiratory Infection 04/02/2011 ACOSTA DDAntoinette BENJI 46 5.9 Upper Respiratory Infection 04/02/2011 SABIHA MAST MD 465.9 Upper Respiratory Infection 04/02/2011 ARGUETA DO KIKA K 465.9 Upper Respiratory Infection 04/02/2011 ITZ JUNIOR APRN J 465.9 Upper Respiratory Infection 04/02/2011 ITZ JUNIOR APRN 465.9 Upper Respiratory Infection 04/02/2011 ITZ JUNIOR APRN 465.9 Upper Respiratory Infection 04/02/2011 MASSIEL FERGUSON DO 465 .9 UPPER RESPIRATORY INFECTION 04/02/2011 ITZ JUNIOR APRN 465.9 Upper Respiratory Infection 04/02/2011 ARGUETA KIKA DE LA TORRE K 465.9 Upper Respiratory Infection 04/15/2011 599.0 URIN REMY TRACT INFECTION 04/15/2011 780.52 INS OMNIA UNSPECIFIED 04/15/2011 REYNALDO VIEIRA APRN 59 9.0 URINARY TRACT INFECTION 04/15/2011 REYNALDO VIEIRA APRN 780.52 INSOMNIA UNSPECIFIED 04/15/2011 599.0 URIN REMY TRACT INFECTION 04/15/2011 780.52 INS OMNIA UNSPECIFIED 04/15/2011 KIKA ARGUETA DO K 599.0 URINARY TRACT INFECTION 04/15/2011 KIKA ARGUETA DO K 780.52 INSOMNIA UNSPECIFIED 04/15/2011 599.0 URIN REMY TRACT INFECTION 04/15/2011 780.52 INS OMNIA UNSPECIFIED 04/15/2011 [facility], ARASH R 599.0 URINARY TRACT INFECTION 04/15/2011 [facility], ARASH R 780.52 INSOMNIA UNSPECIFIED 04/15/2011 599.0 URIN REMY TRACT INFECTION 04/15/2011 780.52 INS OMNIA UNSPECIFIED 04/15/2011 [facility], ARASH R 599.0 URINARY TRACT INFECTION 04/15/2011 [facility], ARASH R 780.52 INSOMNIA UNSPECIFIED 04/15/2011 MARLENE CABRERA APRN 599.0 URINARY TRACT INFECTION 04/15/2011 MARLENE CABRERA APRN 780.52 INSOMNIA UNSPECIFIED 04/15/2011 599.0 Urin remy Tract Infection 04/15/2011 780.52 INS OMNIA UNSPECIFIED 04/15/2011 599.0 Urin remy Tract Infection 04/15/2011 780.52 INS OMNIA UNSPECIFIED 04/15/2011 599.0 Urin remy Tract Infection 04/15/2011 780.52 INS OMNIA UNSPECIFIED 04/15/2011 599.0 Urin remy Tract Infection 04/15/2011 780.52 INS OMNIA UNSPECIFIED 04/15/2011 599.0 Urin remy Tract Infection 04/15/2011 780.52 INS OMNIA UNSPECIFIED 04/15/2011 599.0 Urin remy Tract Infection 04/15/2011 780.52 INS OMNIA UNSPECIFIED 04/15/2011 599.0 Urin remy Tract Infection 04/15/2011 780.52 INS OMNIA UNSPECIFIED 04/15/2011 599.0 Urin remy Tract Infection 04/15/2011 780.52 INS OMNIA UNSPECIFIED 04/15/2011 599.0 Urin remy Tract Infection 04/15/2011 780.52 INS OMNIA UNSPECIFIED 04/15/2011 599.0 Urin remy Tract Infection 04/15/2011 780.52 INS OMNIA UNSPECIFIED 04/15/2011 599.0 Urin remy Tract Infection 04/15/2011 780.52 INS OMNIA UNSPECIFIED 04/15/2011 599.0 Urin remy Tract Infection 04/15/2011 780.52 INS OMNIA UNSPECIFIED 04/15/2011 599.0 Urin remy Tract Infection 04/15/2011 780.52 INS OMNIA UNSPECIFIED 04/15/2011 REYNALDO VIEIRA APRN T 59 9.0 Urinary Tract Infection 04/15/2011 REYNALDO VIEIRA APRN 780.52 INSOMNIA UNSPECIFIED 04/15/2011 REYNALDO VIEIRA APRN T 59 9.0 Urinary Tract Infection 04/15/2011 REYNALDO VIEIRA APRN 780.52 INSOMNIA UNSPECIFIED 04/15/2011 REYNALDO VIEIRA APRN T 59 9.0 Urinary Tract Infection 04/15/2011 REYNALDO VIEIRA APRN 780.52 INSOMNIA UNSPECIFIED 04/15/2011 SABIHA MAST MD 599.0 Urinary Tract Infection 04/15/2011 SABIHA MAST MD 780.5 2 INSOMNIA UNSPECIFIED 04/15/2011 ARGUETA DO, KIKA K 599.0 Urinary Tract Infection 04/15/2011 ARGUETA DO, KIKA K 780.52 INSOMNIA UNSPECIFIED 04/15/2011 MARLENE CABRERA APRN 599.0 Urinary Tract Infection 04/15/2011 MARLENE CABRERA APRN 780.52 INSOMNIA UNSPECIFIED 04/15/2011 MARLENE CABRERA APRN 599.0 Urinary Tract Infection 04/15/2011 MARLENE CABRERA APRN 780.52 INSOMNIA UNSPECIFIED 04/15/2011 [facility], ARASH R 599.0 Urinary Tract Infection 04/15/2011 [facility], ARASH R 780.52 INSOMNIA UNSPECIFIED 04/15/2011 BRODY ARAYA MD N 599 .0 Urinary Tract Infection 04/15/2011 BRODY ARAYA MD N 780 .52 INSOMNIA UNSPECIFIED 04/15/2011 REYNALDO VIEIRA APRN T 59 9.0 Urinary Tract Infection 04/15/2011 REYNALDO VIEIRA APRN T 780.52 INSOMNIA UNSPECIFIED 04/15/2011 [facility], ARASH R 599.0 Urinary Tract Infection 04/15/2011 [facility], ARASH R 780.52 INSOMNIA UNSPECIFIED 04/15/2011 REYNALDO VIEIRA APRN T 59 9.0 Urinary Tract Infection 04/15/2011 REYNALDO VIEIRA APRN T 780.52 INSOMNIA UNSPECIFIED 04/15/2011 ARGUETA DO, KIKA K 599.0 Urinary Tract Infection 04/15/2011 ARGUETA DO, KIKA K 780.52 INSOMNIA UNSPECIFIED 04/15/2011 [facility], ARASH R 599.0 Urinary Tract Infection 04/15/2011 [facility], ARASH R 780.52 INSOMNIA UNSPECIFIED 04/15/2011 MARLENE CABRERA APRN 599.0 Urinary Tract Infection 04/15/2011 MARLENE CABRERA APRN 780.52 INSOMNIA UNSPECIFIED 04/15/2011 [facility], ARASH R 599.0 Urinary Tract Infection 04/15/2011 [facility], ARASH R 780.52 INSOMNIA UNSPECIFIED 04/15/2011 SANDI LASSITER, ITZ J 599.0 Urinary Tract Infection 04/15/2011 SANDI LASSITER ITZ J 780.52 INSOMNIA UNSPECIFIED 04/15/2011 SANDI FIGURE MODEL, ITZ J 599.0 Urinary Tract Infection 04/15/2011 SANDI LASSITER, ITZ J 780.52 INSOMNIA UNSPECIFIED 04/15/2011 BRODY ARAYA MD N 599 .0 Urinary Tract Infection 04/15/2011 BRODY ARAYA MD N 780 .52 INSOMNIA UNSPECIFIED 04/15/2011 BRODY ARAYA MD N 599 .0 Urinary Tract Infection 04/15/2011 BRODY ARAYA MD N 780 .52 INSOMNIA UNSPECIFIED 04/15/2011 SANDI FIGURE MODEL, ITZ J 599.0 Urinary Tract Infection 04/15/2011 SANDI LASSITER, ITZ J 780.52 INSOMNIA UNSPECIFIED 04/15/2011 ACOSTA DDS, BENJI 59 9.0 Urinary Tract Infection 04/15/2011 ACOSTA DDS, BENJI 780.52 INSOMNIA UNSPECIFIED 04/15/2011 ACOSTA DDS, BENJI 59 9.0 Urinary Tract Infection 04/15/2011 ACOSTA DDS, BENJI 780.52 INSOMNIA UNSPECIFIED 04/15/2011 SABIHA MAST MD 599.0 Urinary Tract Infection 04/15/2011 SABIHA MAST MD 780.5 2 INSOMNIA UNSPECIFIED 04/15/2011 ARGUETA DO, KIKA K 599.0 Urinary Tract Infection 04/15/2011 ARGUETA DO, KIKA K 780.52 INSOMNIA UNSPECIFIED 04/15/2011 SANDI LASSITER, ITZ J 599.0 Urinary Tract Infection 04/15/2011 SANDI LASSITER, ITZ J 780.52 INSOMNIA UNSPECIFIED 04/15/2011 SANDI LASSITER, ITZ J 599.0 Urinary Tract Infection 04/15/2011 SANDI LASSITER, ITZ J 780.52 INSOMNIA UNSPECIFIED 04/15/2011 SANDI LYNNN, ITZ J 599.0 Urinary Tract Infection 04/15/2011 SANID LASSITER, ITZ J 780.52 INSOMNIA UNSPECIFIED 04/15/2011 WERMASSIEL RICH DO F 599 .0 URINARY TRACT INFECTION 04/15/2011 MASSIEL FERGUSON DO F 780 .52 INSOMNIA UNSPECIFIED 04/15/2011 SANDI LASSITER, ITZ J 599.0 Urinary Tract Infection 04/15/2011 SANDI LASSITER, ITZ J 780.52 INSOMNIA UNSPECIFIED 04/15/2011 ARGUETA DO, KIKA K 599.0 Urinary Tract Infection 04/15/2011 ARGUETA DO KIKA K 780.52 INSOMNIA UNSPECIFIED 05/04/2011 Ot 789.06 ABD OMINAL PAIN, EPIGASTRIC 05/08/2011 Ot 530.81 05/08/2011 Ot 553.3 05/12/2011 786.05 NENA RTNESS OF BREATH 05/12/[address] PAIN 05/12/2011 REYNALDO VIEIRA APRN 786.05 SHORTNESS OF BREATH 05/12/2011 REYNALDO VIEIRA APRN 786.50 CHEST PAIN 05/12/2011 786.05 NENA RTNESS OF BREATH 05/12/[address] PAIN 05/12/2011 ARUGETA DO, KIKA K 786.05 SHORTNESS OF BREATH 05/12/2011 ARGUETA DO, KIKA K 786.50 CHEST PAIN 05/12/2011 786.05 NENA RTNESS OF BREATH 05/12/[address] PAIN 05/12/2011 [facility], ARASH R 786.05 SHORTNESS OF BREATH 05/12/2011 [facility], ARASH R 786.50 CHEST PAIN 05/12/2011 786.05 NENA RTNESS OF BREATH 05/12/[address] PAIN 05/12/2011 [facility], ARASH R 786.05 SHORTNESS OF BREATH 05/12/2011 [facility], ARASH R 786.50 CHEST PAIN 05/12/2011 MARLENE CABRERA APRN 786.05 SHORTNESS OF BREATH 05/12/2011 MARLENE CABRERA APRN 786.50 CHEST PAIN 05/12/2011 786.05 Nena rtness Of Breath 05/12/[address] PAIN 05/12/2011 786.05 Nena rtness Of Breath 05/12/[address] PAIN 05/12/2011 786.05 Nena rtness Of Breath 05/12/[address] PAIN 05/12/2011 786.05 Nena rtness Of Breath 05/12/[address] PAIN 05/12/2011 786.05 Nena rtness Of Breath 05/12/[address] PAIN 05/12/2011 786.05 Nena rtness Of Breath 05/12/[address] PAIN 05/12/2011 786.05 Nena rtness Of Breath 05/12/[address] PAIN 05/12/2011 786.05 Nena rtness Of Breath 05/12/[address] PAIN 05/12/2011 786.05 Nena rtness Of Breath 05/12/[address] PAIN 05/12/2011 786.05 Nena rtness Of Breath 05/12/[address] PAIN 05/12/2011 786.05 Nena rtness Of Breath 05/12/[address] PAIN 05/12/2011 786.05 Nena rtness Of Breath 05/12/[address] PAIN 05/12/2011 786.05 Nena rtness Of Breath 05/12/[address] PAIN 05/12/2011 DARIEL LASSITER REYNALDO T 786.05 Shortness Of Breath 05/12/2011 DARIEL LASSITER REYNALDO T 786.50 CHEST PAIN 05/12/2011 DARIEL LASSITER REYNALDO T 786.05 Shortness Of Breath 05/12/2011 DARIEL LASSITER REYNALDO T 786.50 CHEST PAIN 05/12/2011 DARIEL LASSITER REYNALDO T 786.05 Shortness Of Breath 05/12/2011 DARIEL LASSITER REYNALDO T 786.50 CHEST PAIN 05/12/2011 SABIHA MAST MD 786.0 5 Shortness Of Breath 05/12/2011 SABIHA MAST MD 786.5 0 CHEST PAIN 05/12/2011 ARGUETA DO, KIKA K 786.05 Shortness Of Breath 05/12/2011 ARGUETA DO KIKA K 786.50 CHEST PAIN 05/12/2011 MARLENE CABRERA APRN 786.05 Shortness Of Breath 05/12/2011 MARLENE CABRERA APRN 786.50 CHEST PAIN 05/12/2011 MARLENE CABRERA APRN 786.05 Shortness Of Breath 05/12/2011 MARLENE CABRERA APRN 786.50 CHEST PAIN 05/12/2011 [facility], ARASH R 786.05 Shortness Of Breath 05/12/2011 [facility], ARASH R 786.50 CHEST PAIN 05/12/2011 BRODY ARAYA MD 786 .05 Shortness Of Breath 05/12/2011 BRODY ARAYA MD 786 .50 CHEST PAIN 05/12/2011 REYNALDO VIEIRA APRN T 786.05 Shortness Of Breath 05/12/2011 REYNALDO VIEIRA APRN T 786.50 CHEST PAIN 05/12/2011 [facility] 786.05 Shortness Of Breath 05/12/2011 [facility], ARASH R 786.50 CHEST PAIN 05/12/2011 REYNALDO VIEIRA APRN T 786.05 Shortness Of Breath 05/12/2011 REYNALDO VIEIRA APRN T 786.50 CHEST PAIN 05/12/2011 ARGUETA DO, KIKA K 786.05 Shortness Of Breath 05/12/2011 ARGUETA DO, KIKA K 786.50 CHEST PAIN 05/12/2011 [facility], ARASH R 786.05 Shortness Of Breath 05/12/2011 [facility] 786.50 CHEST PAIN 05/12/2011 MARLENE CABRERA APRN 786.05 Shortness Of Breath 05/12/2011 MARLENE CABRERA APRN 786.50 CHEST PAIN 05/12/2011 [facility], ARASH R 786.05 Shortness Of Breath 05/12/2011 [facility] 786.50 CHEST PAIN 05/12/2011 SANDI LASSITER, ITZ J 786.05 Shortness Of Breath 05/12/2011 SANDI LASSITER, ITZ J 786.50 CHEST PAIN 05/12/2011 SANDI LASSITER, ITZ J 786.05 Shortness Of Breath 05/12/2011 SANDI LASSITER, ITZ J 786.50 CHEST PAIN 05/12/2011 BRODY ARAYA MD N 786 .05 Shortness Of Breath 05/12/2011 BRODY ARAYA MD N 786 .50 CHEST PAIN 05/12/2011 BRODY ARAYA MD N 786 .05 Shortness Of Breath 05/12/2011 BRODY ARAYA MD N 786 .50 CHEST PAIN 05/12/2011 SANDI LASSITER ITZ J 786.05 Shortness Of Breath 05/12/2011 SANDI LASSITER, ITZ J 786.50 CHEST PAIN 05/12/2011 [facility] DDS, BENJI 786.05 Shortness Of Breath 05/12/2011 [facility]COSTA DDS, BENJI 786.50 CHEST PAIN 05/12/2011 [facility]COSTA DDS, BENJI 786.05 Shortness Of Breath 05/12/2011 [facility]STA DDS, BENJI 786.50 CHEST PAIN 05/12/2011 SABIHA MAST MD 786.0 5 Shortness Of Breath 05/12/2011 SABIHA MAST MD 786.5 0 CHEST PAIN 05/12/2011 ARGUETA DO, KIKA K 786.05 Shortness Of Breath 05/12/2011 ARGUETA DO, KIKA K 786.50 CHEST PAIN 05/12/2011 SANDI LASSITER, ITZ J 786.05 Shortness Of Breath 05/12/2011 SANDI LASSITER, ITZ J 786.50 CHEST PAIN 05/12/2011 SANDI FIGURE MODEL, ITZ J 786.05 Shortness Of Breath 05/12/2011 SANDI FIGURE MODEL, ITZ J 786.50 CHEST PAIN 05/12/2011 SANDI FIGURE MODEL, ITZ J 786.05 Shortness Of Breath 05/12/2011 SANDI FIGURE MODEL, ITZ J 786.50 CHEST PAIN 05/12/2011 WERDER DO, MASSIEL F 786 .05 SHORTNESS OF BREATH 05/12/2011 WERDER DO, MASSIEL F 786 .50 CHEST PAIN 05/12/2011 SANDI FIGURE MODEL, ITZ J 786.05 Shortness Of Breath 05/12/2011 SANDI MAIKOL, ITZ J 786.50 CHEST PAIN 05/12/2011 ARGUETA KIKA DE LA TORRE K 786.05 Shortness Of Breath 05/12/2011 KIKA ARGUETA DO K 786.50 CHEST PAIN 05/12/2011 Ot 305.90 05/12/2011 Ot 599.0 05/12/2011 Ot 780.2 05/12/2011 Ot 793.19 05/30/2011 Ot 558.9 05/30/2011 Ot 780.2 06/07/2011 Ot 327.23 06/07/2011 Ot 530.81 06/07/2011 Ot 553.3 06/07/2011 Ot 599.0 06/07/2011 Ot V58.69 06/08/2011 Ot 787.03 06/08/2011 Ot 787.91 06/08/2011 Ot 789.06 06/08/2011 Ot V45.89 06/13/2011 Ot 786.2 06/24/2011 477.9 RHINITIS 06/24/2011 REYNALDO VIEIRA APRN 47 7.9 RHINITIS 06/24/2011 477.9 RHINITIS 06/24/2011 KIKA ARGUETA DO 477.9 RHINITIS 06/24/2011 477.9 RHINITIS 06/24/2011 [facility] RH[facility]IS 06/24/2011 477.9 RHINITIS 06/24/2011 [facility] 477.9 RHINITIS 06/24/2011 MARLENE CABRERA APRN 477.9 RHINITIS 06/24/2011 477.9 Rhinitis 06/24/2011 477.9 Rhinitis 06/24/2011 477.9 Rhinitis 06/24/2011 477.9 Rhinitis 06/24/2011 477.9 Rhinitis 06/24/2011 477.9 Rhinitis 06/24/2011 477.9 Rhinitis 06/24/2011 477.9 Rhinitis 06/24/2011 477.9 Rhinitis 06/24/2011 477.9 Rhinitis 06/24/2011 477.9 Rhinitis 06/24/2011 477.9 Rhinitis 06/24/2011 477.9 Rhinitis 06/24/2011 REYNALDO VIEIRA APRN 47 7.9 Rhinitis 06/24/2011 REYNALDO VIEIRA APRN 47 7.9 Rhinitis 06/24/2011 REYNALDO VIEIRA APRN 47 7.9 Rhinitis 06/24/2011 SABIHA MAST MD 477.9 Rhinitis 06/24/2011 KIKA ARGUETA DO K 477.9 Rhinitis 06/24/2011 MARLENE CABRERA APRN 477.9 Rhinitis 06/24/2011 MARLENE CABRERA APRN 477.9 Rhinitis 06/24/2011 [facility], ARASH R 477.9 Rhinitis 06/24/2011 BRODY ARAYA MD 477 .9 Rhinitis 06/24/2011 REYNALDO VIEIRA APRN 47 7.9 Rhinitis 06/24/2011 [facility], ARASH R 477.9 Rhinitis 06/24/2011 REYNALDO VIEIRA APRN 47 7.9 Rhinitis 06/24/2011 KIKA ARGUETA DO K 477.9 Rhinitis 06/24/2011 [facility], ARASH R 477.9 Rhinitis 06/24/2011 MARLENE CABRERA APRN 477.9 Rhinitis 06/24/2011 [facility], ARASH R 477.9 Rhinitis 06/24/2011 ITZ JUNIOR APRN 477.9 Rhinitis 06/24/2011 ITZ JUNIOR APRN 477.9 Rhinitis 06/24/2011 BRODY ARAYA MD 477 .9 Rhinitis 06/24/2011 BRODY ARAYA MD 477 .9 Rhinitis 06/24/2011 ITZ JUNIOR APRN 477.9 Rhinitis 06/24/2011 BENJI ACOSTA DDS 47 7.9 Rhinitis 06/24/2011 KARLA CARDOZOBENJI 47 7.9 Rhinitis 06/24/2011 SABIHA MAST MD 477.9 Rhinitis 06/24/2011 KIKA ARGUETA DO 477.9 Rhinitis 06/24/2011 ITZ JUNIOR APRN 477.9 Rhinitis 06/24/2011 ITZ JUNIOR APRN 477.9 Rhinitis 06/24/2011 ITZ JUNIOR APRN 477.9 Rhinitis 06/24/2011 MASSIEL FERGUSON DO 477 .9 RHINITIS 06/24/2011 ITZ JUNIOR APRN 477.9 Rhinitis 06/24/2011 ELLIE DE LA TORREKIKA 477.9 Rhinitis 07/10/2011 Ot 327.23 07/10/2011 Ot 780.39 07/10/2011 Ot 780.96 07/10/2011 Ot V58.69 07/14/2011 780.57 SLE EP APNEA 07/14/2011 REYNALDO VIEIRA APRN 780.57 SLEEP APNEA 07/14/2011 780.57 SLE EP APNEA 07/14/2011 KIKA ARGUETA DO 780.57 SLEEP APNEA 07/14/2011 780.57 SLE EP APNEA 07/14/2011 [facility] SLEEP APNEA 07/14/2011 780.57 SLE EP APNEA 07/14/2011 [facility] 780.57 SLEEP APNEA 07/14/2011 MARLENE CABRERA APRN 780.57 SLEEP APNEA 07/14/2011 780.57 SLE EP APNEA 07/14/2011 780.57 SLE EP APNEA 07/14/2011 780.57 SLE EP APNEA 07/14/2011 780.57 SLE EP APNEA 07/14/2011 780.57 SLE EP APNEA 07/14/2011 780.57 SLE EP APNEA 07/14/2011 780.57 SLE EP APNEA 07/14/2011 780.57 SLE EP APNEA 07/14/2011 780.57 SLE EP APNEA 07/14/2011 780.57 SLE EP APNEA 07/14/2011 780.57 SLE EP APNEA 07/14/2011 780.57 SLE EP APNEA 07/14/2011 780.57 SLE EP APNEA 07/14/2011 REYNALDO VIEIRA APRN 780.57 SLEEP APNEA 07/14/2011 REYNALDO VIEIRA APRN 780.57 SLEEP APNEA 07/14/2011 REYNALDO VIEIRA APRN 780.57 SLEEP APNEA 07/14/2011 SABIHA MAST MD 780.5 7 SLEEP APNEA 07/14/2011 KIKA ARGUETA DO 780.57 SLEEP APNEA 07/14/2011 MARLENE CABRERA APRN 780.57 SLEEP APNEA 07/14/2011 MARLENE CABRERA APRN 780.57 SLEEP APNEA 07/14/2011 [facility], ARASH R 780.57 SLEEP APNEA 07/14/2011 BRODY ARAYA MD 780 .57 SLEEP APNEA 07/14/2011 REYNALDO VIEIRA APRN 780.57 SLEEP APNEA 07/14/2011 [facility], ARASH R 780.57 SLEEP APNEA 07/14/2011 REYNALDO VIEIRA APRN 780.57 SLEEP APNEA 07/14/2011 KIKA ARGUETA DO 780.57 SLEEP APNEA 07/14/2011 [facility], ARASH R 780.57 SLEEP APNEA 07/14/2011 MARLENE CABRERA APRN 780.57 SLEEP APNEA 07/14/2011 [facility], ARASH R 780.57 SLEEP APNEA 07/14/2011 ITZ JUNIOR APRN 780.57 SLEEP APNEA 07/14/2011 ITZ JUNIOR APRN 780.57 SLEEP APNEA 07/14/2011 BRODY ARAYA MD 780 .57 SLEEP APNEA 07/14/2011 BRODY ARAYA MD 780 .57 SLEEP APNEA 07/14/2011 ITZ JUNIOR APRN 780.57 SLEEP APNEA 07/14/2011 BENJI ACOSTA DDS 780.57 SLEEP APNEA 07/14/2011 BENJI ACOSTA DDS 780.57 SLEEP APNEA 07/14/2011 SABIHA MAST MD 780.5 7 SLEEP APNEA 07/14/2011 KIKA ARGUETA DO 780.57 SLEEP APNEA 07/14/2011 ITZ JUNIOR APRN 780.57 SLEEP APNEA 07/14/2011 ITZ JUNIOR APRN 780.57 SLEEP APNEA 07/14/2011 ITZ JUNIOR APRN J 780.57 SLEEP APNEA 07/14/2011 MASSIEL FERGUSON DO 780 .57 SLEEP APNEA 07/14/2011 ITZ JUNIOR APRN 780.57 SLEEP APNEA 07/14/2011 KIKA ARGUETA DO K 780.57 SLEEP APNEA 07/29/2011 Ot 327.23 08/06/2011 V72.31 Tank Car Cleaner Exam, Routine 08/06/2011 REYNALDO VIEIRA APRN V72.31 Tank Car Cleaner Exam, Routine 08/06/2011 V72.31 Tank Car Cleaner Exam, Routine 08/06/2011 KIKA ARGUETA DO V72.31 Tank Car Cleaner Exam, Routine 08/06/2011 V72.31 Tank Car Cleaner Exam, Routine 08/06/2011 [facility], ARASH R V72.31 Tank Car Cleaner Exam, Routine 08/06/2011 V72.31 Tank Car Cleaner Exam, Routine 08/06/2011 [facility], ARASH R V72.31 Tank Car Cleaner Exam, Routine 08/06/2011 MARLENE CABRERA APRN V72.31 Tank Car Cleaner Exam, Routine 08/06/2011 V72.31 Tank Car Cleaner Exam, Routine 08/06/2011 V72.31 Tank Car Cleaner Exam, Routine 08/06/2011 V72.31 Tank Car Cleaner Exam, Routine 08/06/2011 V72.31 Tank Car Cleaner Exam, Routine 08/06/2011 V72.31 Tank Car Cleaner Exam, Routine 08/06/2011 V72.31 Tank Car Cleaner Exam, Routine 08/06/2011 V72.31 Tank Car Cleaner Exam, Routine 08/06/2011 V72.31 Tank Car Cleaner Exam, Routine 08/06/2011 V72.31 Tank Car Cleaner Exam, Routine 08/06/2011 V72.31 Tank Car Cleaner Exam, Routine 08/06/2011 V72.31 Tank Car Cleaner Exam, Routine 08/06/2011 V72.31 Tank Car Cleaner Exam, Routine 08/06/2011 V72.31 Tank Car Cleaner Exam, Routine 08/06/2011 REYNALDO VIEIRA APRN V72.31 Tank Car Cleaner Exam, Routine 08/06/2011 REYNALDO VIEIRA APRN V72.31 Tank Car Cleaner Exam, Routine 08/06/2011 REYNALDO VIEIRA APRN V72.31 Tank Car Cleaner Exam, Routine 08/06/2011 KEZIA SAUCEDO, SABIHA V72.3 1 Tank Car Cleaner Exam, Routine 08/06/2011 KIKA ARGUETA DO V72.31 Tank Car Cleaner Exam, Routine 08/06/2011 MARLENE CABRERA APRN V72.31 Tank Car Cleaner Exam, Routine 08/06/2011 MARLENE CABRERA APRN V72.31 Tank Car Cleaner Exam, Routine 08/06/2011 [facility], ARASH R V72.31 Tank Car Cleaner Exam, Routine 08/06/2011 MARSHAL SAUCEDO, BRODY Linda V72 .31 Tank Car Cleaner Exam, Routine 08/06/2011 REYNALDO VIEIRA APRN V72.31 Tank Car Cleaner Exam, Routine 08/06/2011 [facility], ARASH Saucedo V72.31 Tank Car Cleaner Exam, Routine 08/06/2011 REYNALDO VIEIRA APRN V72.31 Tank Car Cleaner Exam, Routine 08/06/2011 KIKA ARGUETA DO V72.31 Tank Car Cleaner Exam, Routine 08/06/2011 [facility], ARASH R V72.31 Tank Car Cleaner Exam, Routine 08/06/2011 MARLENE CABRERA APRN V72.31 Tank Car Cleaner Exam, Routine 08/06/2011 [facility], ARASH Saucedo V72.31 Tank Car Cleaner Exam, Routine 08/06/2011 ITZ JUNIOR APRN V72.31 Tank Car Cleaner Exam, Routine 08/06/2011 ITZ JUNIOR APRN V72.31 Tank Car Cleaner Exam, Routine 08/06/2011 MARSHAL SAUCEDO, BRODY Linda V72 .31 Tank Car Cleaner Exam, Routine 08/06/2011 BRODY ARAYA MD V72 .31 Tank Car Cleaner Exam, Routine 08/06/2011 ITZ JUNIOR APRN V72.31 Tank Car Cleaner Exam, Routine 08/06/2011 BENJI ACOSTA DDS V72.31 Tank Car Cleaner Exam, Routine 08/06/2011 BENJI ACOSTA DDS V72.31 Tank Car Cleaner Exam, Routine 08/06/2011 KEZIA SAUCEDO, SABIHA V72.3 1 Tank Car Cleaner Exam, Routine 08/06/2011 KIKA ARGUETA DO V72.31 Tank Car Cleaner Exam, Routine 08/06/2011 ITZ JUNIOR APRN V72.31 Tank Car Cleaner Exam, Routine 08/06/2011 ITZ JUNIOR APRN V72.31 Tank Car Cleaner Exam, Routine 08/06/2011 ITZ JUNIOR APRN V72.31 Tank Car Cleaner Exam, Routine 08/06/2011 MASSIEL FERGUSON DO V72 .31 Tank Car Cleaner Exam, Routine 08/06/2011 ITZ JUNIOR APRN V72.31 Tank Car Cleaner Exam, Routine 08/06/2011 KIKA ARGUETA DO V72.31 Tank Car Cleaner Exam, Routine 10/12/2011 Ot 780.39 11/29/2011 Ot 345.90 11/29/2011 Ot V58.69 01/02/2012 Ot 599.0 01/02/2012 Ot 780.39 01/03/2012 Ot 599.0 01/03/2012 Ot 782.1 01/05/2012 780.39 OTH ER CONVULSIONS 01/05/2012 780.93 MEM ORY LOSS 01/05/2012 E888.9 UNS PECIFIED ACCIDENTAL FALL 01/05/2012 REYNALDO VIEIRA APRN 780.39 OTHER CONVULSIONS 01/05/2012 REYNALDO VIEIRA APRN 780.93 MEMORY LOSS 01/05/2012 REYNALDO VIEIRA APRN E888.9 UNSPECIFIED ACCIDENTAL FALL 01/05/2012 780.39 OTH ER CONVULSIONS 01/05/2012 780.93 MEM ORY LOSS 01/05/2012 E888.9 UNS PECIFIED ACCIDENTAL FALL 01/05/2012 ARGUETA DO, KIKA K 780.39 OTHER CONVULSIONS 01/05/2012 ARGUETA DO, KIKA K 780.93 MEMORY LOSS 01/05/2012 ARGUETA DO, KIKA K E888.9 UNSPECIFIED ACCIDENTAL FALL 01/05/2012 780.39 OTH ER CONVULSIONS 01/05/2012 780.93 MEM ORY LOSS 01/05/2012 E888.9 UNS PECIFIED ACCIDENTAL FALL 01/05/2012 [facility], ARASH R 780.39 OTHER CONVULSIONS 01/05/2012 [facility], ARASH R 780.93 MEMORY LOSS 01/05/2012 [facility], ARASH R E888.9 UNSPECIFIED ACCIDENTAL FALL 01/05/2012 780.39 OTH ER CONVULSIONS 01/05/2012 780.93 MEM ORY LOSS 01/05/2012 E888.9 UNS PECIFIED ACCIDENTAL FALL 01/05/2012 [facility], ARASH R 780.39 OTHER CONVULSIONS 01/05/2012 [facility], ARASH R 780.93 MEMORY LOSS 01/05/2012 [facility], ARASH R E888.9 UNSPECIFIED ACCIDENTAL FALL 01/05/2012 MARLENE CABRERA APRN 780.39 OTHER CONVULSIONS 01/05/2012 MARLENE CABRERA APRN 780.93 MEMORY LOSS 01/05/2012 MARLENE CABRERA APRN E888.9 UNSPECIFIED ACCIDENTAL FALL 01/05/2012 780.39 OTH ER CONVULSIONS 01/05/2012 780.93 Mem ory Loss 01/05/2012 E888.9 Uns pecified Accidental Fall 01/05/2012 780.39 OTH ER CONVULSIONS 01/05/2012 780.93 Mem ory Loss 01/05/2012 E888.9 Uns pecified Accidental Fall 01/05/2012 780.39 OTH ER CONVULSIONS 01/05/2012 780.93 Mem ory Loss 01/05/2012 E888.9 Uns pecified Accidental Fall 01/05/2012 780.39 OTH ER CONVULSIONS 01/05/2012 780.93 Mem ory Loss 01/05/2012 E888.9 Uns pecified Accidental Fall 01/05/2012 780.39 OTH ER CONVULSIONS 01/05/2012 780.93 Mem ory Loss 01/05/2012 E888.9 Uns pecified Accidental Fall 01/05/2012 780.39 OTH ER CONVULSIONS 01/05/2012 780.93 Mem ory Loss 01/05/2012 E888.9 Uns pecified Accidental Fall 01/05/2012 780.39 OTH ER CONVULSIONS 01/05/2012 780.93 Mem ory Loss 01/05/2012 E888.9 Uns pecified Accidental Fall 01/05/2012 780.39 OTH ER CONVULSIONS 01/05/2012 780.93 Mem ory Loss 01/05/2012 E888.9 Uns pecified Accidental Fall 01/05/2012 780.39 OTH ER CONVULSIONS 01/05/2012 780.93 Mem ory Loss 01/05/2012 E888.9 Uns pecified Accidental Fall 01/05/2012 780.39 OTH ER CONVULSIONS 01/05/2012 780.93 Mem ory Loss 01/05/2012 E888.9 Uns pecified Accidental Fall 01/05/2012 780.39 OTH ER CONVULSIONS 01/05/2012 780.93 Mem ory Loss 01/05/2012 E888.9 Uns pecified Accidental Fall 01/05/2012 780.39 OTH ER CONVULSIONS 01/05/2012 780.93 Mem ory Loss 01/05/2012 E888.9 Uns pecified Accidental Fall 01/05/2012 780.39 OTH ER CONVULSIONS 01/05/2012 780.93 Mem ory Loss 01/05/2012 E888.9 Uns pecified Accidental Fall 01/05/2012 REYNALDO VIEIRA APRN 780.39 [...] Unspecified Accidental Fall 01/05/2012 SABIHA MAST MD 780.3 9 OTHER CONVULSIONS 01/05/2012 SABIHA MAST MD 780.9 3 Memory Loss 01/05/2012 SABIHA MAST MD E888. 9 Unspecified Accidental Fall 01/05/2012 ARGUETA DO, KIKA [...] CABRERA APRN E888.9 Unspecified Accidental Fall 01/05/2012 [facility], ARASH R 780.39 OTHER CONVULSIONS 01/05/2012 [facility], ARASH R 780.93 Memory Loss 01/05/2012 [facility], ARASH R E888.9 Unspecified Accidental Fall 01/05/2012 BRODY ARAYA MD 780 .39 OTHER CONVULSIONS 01/05/2012 BRODY ARAYA MD 780 .93 Memory Loss 01/05/2012 BRODY ARAYA MD E88 8.9 Unspecified Accidental Fall 01/05/2012 REYNALDO VIEIRA APRN 780.39 OTHER CONVULSIONS 01/05/2012 REYNALDO VIEIRA APRN 780.93 Memory Loss 01/05/2012 REYNALDO VIEIRA APRN T E888.9 Unspecified Accidental Fall 01/05/2012 [facility], ARASH R 780.39 OTHER CONVULSIONS 01/05/2012 [facility], ARASH R 780.93 Memory Loss 01/05/2012 [facility], ARASH R E888.9 Unspecified Accidental Fall 01/05/2012 REYNALDO VIEIRA APRN T 780.39 OTHER CONVULSIONS 01/05/2012 REYNALDO VIEIRA APRN T 780.93 Memory Loss 01/05/2012 REYNALDO VIEIRA APRN T E888.9 Unspecified Accidental Fall 01/05/2012 ARGUETA DO, KIKA K 780.39 OTHER CONVULSIONS 01/05/2012 ARGUETA DO, KIKA K 780.93 Memory Loss 01/05/2012 ARGUETA DO, KIKA K E888.9 Unspecified Accidental Fall 01/05/2012 [facility], ARASH R 780.39 OTHER CONVULSIONS 01/05/2012 [facility], ARASH R 780.93 Memory Loss 01/05/2012 [facility], ARASH R E888.9 Unspecified Accidental Fall 01/05/2012 MARLENE CABRERA APRN 780.39 OTHER CONVULSIONS 01/05/2012 MARLENE CABRERA APRN 780.93 Memory Loss 01/05/2012 MARLENE CABRERA APRN E888.9 Unspecified Accidental Fall 01/05/2012 [facility], ARASH R 780.39 OTHER CONVULSIONS 01/05/2012 [facility], ARASH R 780.93 Memory Loss 01/05/2012 [facility], ARASH R E888.9 Unspecified Accidental Fall 01/05/2012 ITZ JUNIOR APRN J 780.39 OTHER CONVULSIONS 01/05/2012 ROSA JUNIOR APRNA J 780.93 Memory Loss 01/05/2012 ROSA JUNIOR APRNA J E888.9 Unspecified Accidental Fall 01/05/2012 ROSA JUNIOR APRNA J 780.39 OTHER CONVULSIONS 01/05/2012 SANDI LASSITER, ITZ J 780.93 Memory Loss 01/05/2012 SANDI LASSITER ITZ J E888.9 Unspecified Accidental Fall 01/05/2012 BRODY ARAYA MD 780 .39 OTHER CONVULSIONS 01/05/2012 BRODY ARAYA MD 780 .93 Memory Loss 01/05/2012 BRODY ARAYA MD N E88 8.9 Unspecified Accidental Fall 01/05/2012 BRODY ARAYA MD N 780 .39 OTHER CONVULSIONS 01/05/2012 BRODY ARAYA MD 780 .93 Memory Loss 01/05/2012 BRODY ARAYA MD E88 8.9 Unspecified Accidental Fall 01/05/2012 ITZ JUNIOR APRN 780.39 OTHER CONVULSIONS 01/05/2012 ITZ JUNIOR APRN J 780.93 Memory Loss 01/05/2012 ITZ JNUIOR APRN E888.9 Unspecified Accidental Fall 01/05/2012 KARLA DDSBENJI 780.39 OTHER CONVULSIONS 01/05/2012 [facility]CO[facility] DDS, BENJI 780.93 Memory Loss 01/05/2012 [facility], BENJI E888.9 Unspecified Accidental Fall 01/05/2012 [facility]STA DDSBENJI 780.39 OTHER CONVULSIONS 01/05/2012 [facility] D[facility], BENJI 780.93 Memory Loss 01/05/2012 [facility] DDS, BENJI E888.9 Unspecified Accidental Fall 01/05/2012 SABIHA MAST MD 780.3 9 OTHER CONVULSIONS 01/05/2012 SABIHA MAST MD 780.9 3 Memory Loss 01/05/2012 SBAIHA MAST MD E888. 9 Unspecified Accidental Fall 01/05/2012 ARGUETA DO, KIKA K 780.39 OTHER CONVULSIONS 01/05/2012 ARGUETA DO, KIKA K 780.93 Memory Loss 01/05/2012 ARGUETA DO, KIKA K E888.9 Unspecified Accidental Fall 01/05/2012 ITZ JUNIOR APRN 780.39 OTHER CONVULSIONS 01/05/2012 ITZ JUNIOR APRN 780.93 Memory Loss 01/05/2012 ITZ JUNIOR APRN E888.9 Unspecified Accidental Fall 01/05/2012 ITZ JUNIOR APRN 780.39 OTHER CONVULSIONS 01/05/2012 ITZ JUNIOR APRN 780.93 Memory Loss 01/05/2012 ITZ JUNIOR APRN E888.9 Unspecified Accidental Fall 01/05/2012 SANDI LASSITER ITZ J 780.39 OTHER CONVULSIONS 01/05/2012 SANDI LYNNROSA LindaA J 780.93 Memory Loss 01/05/2012 SANDI LYNNAlexei ITZ J E888.9 Unspecified Accidental Fall 01/05/2012 MASSIEL FERGUSON DO F 780 .39 OTHER CONVULSIONS 01/05/2012 MASSIEL FERGUSON DO F 780 .93 MEMORY LOSS 01/05/2012 MASSIEL FERGUSON DO F E88 8.9 UNSPECIFIED ACCIDENTAL FALL 01/05/2012 SANDI LYNNITZ Linda J 780.39 OTHER CONVULSIONS 01/05/2012 SANDI LYNNAlexei ITZ J 780.93 Memory Loss 01/05/2012 SANDI LYNNITZ Linda E888.9 Unspecified Accidental Fall 01/05/2012 KIKA ARGUETA DO K 780.39 OTHER CONVULSIONS 01/05/2012 KIKA ARGUETA DO 780.93 Memory Loss 01/05/2012 KIKA ARGUETA DO E888.9 Unspecified Accidental Fall 01/08/2012 Ot 599.0 [...] MODERATE 02/21/2012 300.02 AN [facility] DEPRESSIVE RECURRENT MODERATE 02/21[facility]2012 [facility] 300.02 AN GEN ANXIETY 02/21/2012 296.32 MO DEPRESSIVE RECURRENT MODERATE 02/21/2012 300.02 AN GEN ANXIETY 02/21/2012 [facility] MO DEPRESSIVE RECURRENT MODERATE 02/21/2012 [facility] ARASH Saucedo 300.02 AN GEN ANXIETY 02/21/2012 MARLENE CABRERA [...] AN GEN ANXIETY 02/21/2012 SABIHA MAST MD 296.3 2 MO DEPRESSIVE RECURRENT MODERATE 02/21/2012 SABIHA MAST MD 300.0 2 AN GEN ANXIETY 02/21/2012 KIKA ARGUETA DO 296.32 MO DEPRESSIVE RECURRENT MODERATE 02/21/2012 KIKA ARGUETA DO K 300.02 AN GEN ANXIETY 02/21/2012 MARLENE CABRERA APRN 296.32 MO DEPRESSIVE RECURRENT MODERATE 02/21/2012 MARLENE CABRERA APRN 300.02 AN GEN ANXIETY 02/21/2012 MARLENE CABRERA APRN 296.32 MO DEPRESSIVE RECURRENT MODERATE 02/21/2012 MARLENE CABRERA APRN 300.02 AN GEN ANXIETY 02/21/2012 [facility], ARASH R 296.32 MO DEPRESSIVE RECURRENT MODERATE 02/21/2012 [facility], ARASH R 300.02 AN GEN ANXIETY 02/21/2012 BRODY ARAYA MD 296 .32 MO DEPRESSIVE RECURRENT MODERATE 02/21/2012 BRODY ARAYA MD 300 .02 AN GEN ANXIETY 02/21/2012 REYNALDO VIEIRA APRN 296.32 MO DEPRESSIVE RECURRENT MODERATE 02/21/2012 REYNALDO VIEIRA APRN 300.02 AN GEN ANXIETY 02/21/2012 [facility], ARASH R 296.32 MO DEPRESSIVE RECURRENT MODERATE 02/21/2012 [facility], ARASH R 300.02 AN GEN ANXIETY 02/21/2012 REYNALDO VIEIRA APRN 296.32 MO DEPRESSIVE RECURRENT MODERATE 02/21/2012 REYNALDO VIEIRA APRN 300.02 AN GEN ANXIETY 02/21/2012 KIKA ARGUETA DO K 296.32 MO DEPRESSIVE RECURRENT MODERATE 02/21/2012 KIKA ARGUETA DO K 300.02 AN GEN ANXIETY 02/21/2012 [facility], ARASH R 296.32 MO DEPRESSIVE RECURRENT MODERATE 02/21/2012 [facility], ARASH R 300.02 AN GEN ANXIETY 02/21/2012 MARLENE CABRERA APRN 296.32 MO DEPRESSIVE RECURRENT MODERATE 02/21/2012 MARLENE CABRERA APRN 300.02 AN GEN ANXIETY 02/21/2012 [facility], ARASH R 296.32 MO DEPRESSIVE RECURRENT MODERATE 02/21/2012 [facility], ARASH R 300.02 AN GEN ANXIETY 02/21/2012 [facility] APRN 296.32 MO DEPRESSIVE RECURRENT MODERATE 02/21/2012 IT[facility] JUNIOR APRN 300.02 AN GEN ANXIETY 02/21/2012 ITZ JUNIOR APRN 296.32 MO DEPRESSIVE RECURRENT MODERATE 02/21/2012 ROSA JUNIOR APRNA J 300.02 AN GEN ANXIETY 02/21/2012 BRODY ARAYA MD N 296 .32 MO DEPRESSIVE RECURRENT MODERATE 02/21/2012 BRODY ARAYA MD N 300 .02 AN GEN ANXIETY 02/21/2012 BRODY ARAYA MD N 296 .32 MO DEPRESSIVE RECURRENT MODERATE 02/21/2012 BRODY ARAYA MD N 300 .02 AN GEN ANXIETY 02/21/2012 [facility] JUN[facility] APRN J 296.32 MO DEPRESSIVE RECURRENT MODERATE 02/21/2012 IT[facility] JUNIOR APRN J 300.02 AN GEN ANXIETY 02/21/2012 BENJI ACOSTA DDS 296.32 MO DEPRESSIVE RECURRENT MODERATE 02/21/2012 BENJI ACOSTA DDS 300.02 AN GEN ANXIETY 02/21/2012 KARLA CARDOZO, BENJI 296.32 MO DEPRESSIVE RECURRENT MODERATE 02/21/2012 BENJI ACOSTA DDS 300.02 AN GEN ANXIETY 02/21/2012 SABIHA MAST MD 296.3 2 MO DEPRESSIVE RECURRENT MODERATE 02/21/2012 SABIHA MAST MD 300.0 2 AN GEN ANXIETY 02/21/2012 KIKA ARGUETA DO K 296.32 MO DEPRESSIVE RECURRENT MODERATE 02/21/2012 KIKA ARGUETA DO K 300.02 AN GEN ANXIETY 02/21/2012 [facility] J[facility] APRN 296.32 MO DEPRESSIVE RECURRENT MODERATE 02/21/2012 ITZ JUNIOR APRN 300.02 AN GEN ANXIETY 02/21/2012 ITZ JUNIOR APRN 296.32 MO DEPRESSIVE RECURRENT MODERATE 02/21/2012 ITZ JUNIOR APRN J 300.02 AN GEN ANXIETY 02/21/2012 ITZ JUNIOR APRN 296.32 MO DEPRESSIVE RECURRENT MODERATE 02/21/2012 [facility] JUNIOR APRN J 300.02 AN GEN ANXIETY 02/21/2012 MASSIEL FERGUSON DO 296 .32 MO DEPRESSIVE RECURRENT MODERATE 02/21/2012 MASSIEL FERGUSON DO 300 .02 AN GEN ANXIETY 02/21/2012 [facility] APRN J 296.32 MO DEPRESSIVE RECURRENT MODERATE 02/21/2012 IT[facility] JUNIOR APRN J 300.02 AN GEN ANXIETY 02/21/2012 KIKA ARGUETA DO 296.32 MO DEPRESSIVE RECURRENT MODERATE 02/21/2012 KIKA ARGUETA DO 300.02 AN GEN ANXIETY 03/09/2012 Ot 535.40 03/09/2012 Ot 564.00 03/09/2012 Ot 785.6 03/09/2012 Ot 787.91 03/09/2012 Ot 787.99 03/09/2012 Ot V45.89 04/30/2012 309.81 AN PTSD 04/30/2012 REYNALDO VIEIRA APRN 309.81 AN PTSD 04/30/2012 309.81 AN PTSD 04/30/2012 KIKA ARGUETA DO 309.81 AN PTSD 04/30/2012 309.81 AN PTSD [facility]/30/2012 [facility] 309.81 AN PTSD 04/30/2012 309.81 AN PTSD 04/30/2012 [facility] 309.81 AN PTSD 04/30/2012 MARLENE CABRERA APRN [...] REYNALDO VIEIRA APRN 309.81 AN PTSD 04/30/2012 REYNADLO VIEIRA APRN 309.81 AN PTSD 04/30/2012 REYNALDO VIEIRA APRN 309.81 AN PTSD 04/30/2012 KEZIA SAUCEDO, SABIHA 309.8 1 AN PTSD 04/30/2012 KIKA ARGUETA DO 309.81 AN PTSD 04/30/2012 MARLENE CABRERA APRN 309.81 AN PTSD 04/30/2012 MARLENE CABRERA APRN 309.81 AN PTSD 04/30/2012 [facility] 309.81 AN PTSD 04/30/2012 MARSHAL SAUCEDO, BRODY Linda 309 .81 AN PTSD 04/30/2012 REYNALDO VIEIRA APRN 309.81 AN PTSD 04/30/2012 [facility]ASH R 309.81 AN PTSD 04/30/2012 REYNALDO VIEIRA APRN 309.81 AN PTSD 04/30/2012 KIKA ARGUETA DO 309.81 AN PTSD 04/30/2012 [facility] ARASH R 309.81 AN PTSD 04/30/2012 MARLENE CABRERA APRN 309.81 AN PTSD 04/30/2012 [facility]ASH R 309.81 AN PTSD 04/30/2012 IT[facility] JUNIOR APRN J 309.81 AN PTSD 04/30/2012 [facility] JUN[facility] APRNA J 309.81 AN PTSD 04/30/2012 BRODY ARAYA MD N 309 .81 AN PTSD 04/30/2012 BRODY ARAYA MD N 309 .81 AN PTSD 04/30/2012 [facility] J[facility] APRNA J 309.81 AN PTSD 04/30/2012 BENJI ACOSTA DDS 309.81 AN PTSD 04/30/2012 BENJI ACOSTA DDS 309.81 AN PTSD 04/30/2012 KEZIA SAUCEDO, SABIHA 309.8 1 AN PTSD 04/30/2012 KIKA ARGUETA DO 309.81 AN PTSD 04/30/2012 [facility] JUN[facility] APRN J 309.81 AN PTSD 04/30/2012 ROSA JUNIOR APRNA J 309.81 AN PTSD 04/30/2012 [facility] JUN[facility] APRNA J 309.81 AN PTSD 04/30/2012 MASSIEL FERGUSON DO 309 .81 AN PTSD 04/30/2012 [facility] APRNA J 309.81 AN PTSD 04/30/2012 KIKA ARGUETA DO 309.81 AN PTSD 05/21/2012 REYNALDO VIEIRA APRN 35 7.9 NEUROPATHY UNSP 05/21/2012 357.9 NEUR OPATHY UNSP 05/21/2012 KIKA ARGUETA DO 357.9 NEUROPATHY UNSP 05/21/2012 357.9 NEUR OPATHY UNSP 05/21/2012 [facility] 357.9 NEUROPATHY UNSP 05/21/2012 357.9 NEUR OPATHY UNSP 05/21/2012 [facility] R 357.9 NEUROPATHY UNSP 05/21/2012 MARLENE CABRERA APRN 357.9 NEUROPATHY UNSP 05/21/2012 357.9 NEUR OPATHY UNSP 05/21/2012 357.9 NEUR OPATHY UNSP 05/21/2012 357.9 NEUR OPATHY UNSP 05/21/2012 357.9 NEUR OPATHY UNSP 05/21/2012 357.9 NEUR OPATHY UNSP 05/21/2012 357.9 NEUR OPATHY UNSP 05/21/2012 357.9 NEUR OPATHY UNSP 05/21/2012 357.9 NEUR OPATHY UNSP 05/21/2012 357.9 NEUR OPATHY UNSP 05/21/2012 357.9 NEUR OPATHY UNSP 05/21/2012 357.9 NEUR OPATHY UNSP 05/21/2012 357.9 NEUR OPATHY UNSP 05/21/2012 357.9 NEUR OPATHY UNSP 05/21/2012 REYNALDO VIEIRA APRN 35 7.9 NEUROPATHY UNSP 05/21/2012 REYNALDO VIEIRA APRN 35 7.9 NEUROPATHY UNSP 05/21/2012 REYNALDO VIEIRA APRN 35 7.9 NEUROPATHY UNSP 05/21/2012 SABIHA MAST MD 357.9 NEUROPATHY UNSP 05/21/2012 KIKA ARGUETA DO 357.9 NEUROPATHY UNSP 05/21/2012 MARLENE CABRERA APRN 357.9 NEUROPATHY UNSP 05/21/2012 MARLENE CABRERA APRN 357.9 NEUROPATHY UNSP 05/21/2012 [facility] ARASH R 357.9 NEUROPATHY UNSP 05/21/2012 BRODY ARAYA MD 357 .9 NEUROPATHY UNSP 05/21/2012 REYNALDO VIEIRA APRN 35 7.9 NEUROPATHY UNSP 05/21/2012 [facility]ASH R 357.9 NEUROPATHY UNSP 05/21/2012 REYNALDO VIEIRA APRN 35 7.9 NEUROPATHY UNSP 05/21/2012 KIKA ARGUETA DO 357.9 NEUROPATHY UNSP 05/21/2012 [facility] ARASH R 357.9 NEUROPATHY UNSP 05/21/2012 MARLENE CABRERA APRN 357.9 NEUROPATHY UNSP 05/21/2012 [facility], ARASH R 357.9 NEUROPATHY UNSP 05/21/2012 ITZ JUNIOR APRN 357.9 NEUROPATHY UNSP 05/21/2012 ITZ JUNIOR APRN 357.9 NEUROPATHY UNSP 05/21/2012 BRODY ARAYA MD 357 .9 NEUROPATHY UNSP 05/21/2012 BRODY ARAYA MD 357 .9 NEUROPATHY UNSP 05/21/2012 ITZ JUNIOR APRN 357.9 NEUROPATHY UNSP 05/21/2012 ACOSTAAMY CARDOZO, BENJI 35 7.9 NEUROPATHY UNSP 05/21/2012 KARLA MCKEONS, BENJI 35 7.9 NEUROPATHY UNSP 05/21/2012 SABIHA MAST MD 357.9 NEUROPATHY UNSP 05/21/2012 KIKA ARGUETA DO 357.9 NEUROPATHY UNSP 05/21/2012 ITZ JUNIOR APRN 357.9 NEUROPATHY UNSP 05/21/2012 ITZ JUNIOR APRN 357.9 NEUROPATHY UNSP 05/21/2012 ITZ JUNIOR APRN 357.9 NEUROPATHY UNSP 05/21/2012 ITZ JUNIOR APRN 357.9 NEUROPATHY UNSP 05/21/2012 KIKA ARGUETA DO 357.9 NEUROPATHY UNSP 07/07/2012 KIKA ARGUETA DO 611.71 BREAST PAIN 07/07/2012 KIKA ARGUETA DO 611.72 BREAST LUMP OR MASS 07/07/2012 KIKA ARGUETA DO V73.81 HPV SCREENING 07/07/2012 KIKA ARGUETA DO V76.10 BREAST CANCER SCREENING 07/07/2012 KIKA ARGUETA DO V76.47 VAGINAL PAP SMEAR SCREENING 07/07/2012 611.71 DOMINICK AST PAIN 07/07/2012 611.72 DOMINICK AST LUMP OR MASS 07/07/2012 V73.81 HPV SCREENING 07/07/2012 V76.10 DOMINICK AST CANCER SCREENING 07/07/2012 V76.47 VAG INAL PAP SMEAR SCREENING 07/07/2012 [facility] 611.71 [facility] 07/07/2012 [facility] 611.72 BREAST LUMP OR MASS 07/07/2012 [facility] V73.81 HPV SCREENING 07/07/2012 [facility] V76.10 BREAST CANCER SCREENING 07/07/2012 [facility] V76.47 VAGINAL PAP SMEAR SCREENING 07/07/2012 611.71 DOMINICK AST PAIN 07/07/2012 611.72 DOMINICK AST LUMP OR MASS 07/07/2012 V73.81 HPV SCREENING 07/07/2012 V76.10 DOMINICK AST CANCER SCREENING 07/07/2012 V76.47 VAG INAL PAP SMEAR SCREENING 07/07/2012 [facility] ARASH R 611.71 BREAST PAIN 07/07/2012 [facility] ARASH R 611.72 BREAST LUMP OR MASS 07/07/2012 [facility]ASH R V73.81 HPV SCREENING 07/07/2012 [facility] ARASH R V76.10 BREAST CANCER SCREENING 07/07/2012 [facility] ARASH R V76.47 VAGINAL PAP SMEAR SCREENING 07/07/2012 MARLENE CABRERA APRN 611.71 BREAST PAIN 07/07/2012 MARLENE CABRERA APRN 611.72 BREAST LUMP OR MASS 07/07/2012 MARLENE CABRERA APRN V73.81 HPV SCREENING 07/07/2012 MARLENE CABRERA APRN V76.10 BREAST CANCER SCREENING 07/07/2012 MARLENE CABRERA APRN V76.47 VAGINAL PAP SMEAR SCREENING 07/07/2012 611.71 DOMINICK AST PAIN 07/07/2012 611.72 DOMINICK AST LUMP OR MASS 07/07/2012 V73.81 HPV SCREENING 07/07/2012 V76.10 DOMINICK AST CANCER SCREENING 07/07/2012 V76.47 VAG INAL PAP SMEAR SCREENING 07/07/2012 611.71 DOMINICK AST PAIN 07/07/2012 611.72 DOMINICK AST LUMP OR MASS 07/07/2012 V73.81 HPV SCREENING 07/07/2012 V76.10 DOMINICK AST CANCER SCREENING 07/07/2012 V76.47 VAG INAL PAP SMEAR SCREENING 07/07/2012 611.71 DOMINICK AST PAIN 07/07/2012 611.72 DOMINICK AST LUMP OR MASS 07/07/2012 V73.81 HPV SCREENING 07/07/2012 V76.10 DOMINICK AST CANCER SCREENING 07/07/2012 V76.47 VAG INAL PAP SMEAR SCREENING 07/07/2012 611.71 DOMINICK AST PAIN 07/07/2012 611.72 DOMINICK AST LUMP OR MASS 07/07/2012 V73.81 HPV SCREENING 07/07/2012 V76.10 DOMINICK AST CANCER SCREENING 07/07/2012 V76.47 VAG INAL PAP SMEAR SCREENING 07/07/2012 611.71 DOMINICK AST PAIN 07/07/2012 611.72 DOMINICK AST LUMP OR MASS 07/07/2012 V73.81 HPV SCREENING 07/07/2012 V76.10 DOMINICK AST CANCER SCREENING 07/07/2012 V76.47 VAG INAL PAP SMEAR SCREENING 07/07/2012 611.71 DOMINICK AST PAIN 07/07/2012 611.72 DOMINICK AST LUMP OR MASS 07/07/2012 V73.81 HPV SCREENING 07/07/2012 V76.10 DOMINICK AST CANCER SCREENING 07/07/2012 V76.47 VAG INAL PAP SMEAR SCREENING 07/07/2012 611.71 DOMINICK AST PAIN 07/07/2012 611.72 DOMINICK AST LUMP OR MASS 07/07/2012 V73.81 HPV SCREENING 07/07/2012 V76.10 DOMINICK AST CANCER SCREENING 07/07/2012 V76.47 VAG INAL PAP SMEAR SCREENING 07/07/2012 611.71 DOMINICK AST PAIN 07/07/2012 611.72 DOMINICK AST LUMP OR MASS 07/07/2012 V73.81 HPV SCREENING 07/07/2012 V76.10 DOMINICK AST CANCER SCREENING 07/07/2012 V76.47 VAG INAL PAP SMEAR SCREENING 07/07/2012 611.71 DOMINICK AST PAIN 07/07/2012 611.72 DOMINICK AST LUMP OR MASS 07/07/2012 V73.81 HPV SCREENING 07/07/2012 V76.10 DOMINICK AST CANCER SCREENING 07/07/2012 V76.47 VAG INAL PAP SMEAR SCREENING 07/07/2012 611.71 DOMINICK AST PAIN 07/07/2012 611.72 DOMINICK AST LUMP OR MASS 07/07/2012 V73.81 HPV SCREENING 07/07/2012 V76.10 DOMINICK AST CANCER SCREENING 07/07/2012 V76.47 VAG INAL PAP SMEAR SCREENING 07/07/2012 611.71 DOMINICK AST PAIN 07/07/2012 611.72 DOMINICK AST LUMP OR MASS 07/07/2012 V73.81 HPV SCREENING 07/07/2012 V76.10 DOMNIICK AST CANCER SCREENING 07/07/2012 V76.47 VAG INAL PAP SMEAR SCREENING 07/07/2012 611.71 DOMINICK AST PAIN 07/07/2012 611.72 DOMINICK AST LUMP OR MASS 07/07/2012 V73.81 HPV SCREENING 07/07/2012 V76.10 DOMINICK AST CANCER SCREENING 07/07/2012 V76.47 VAG INAL PAP SMEAR SCREENING 07/07/2012 611.71 DOMINICK AST PAIN 07/07/2012 611.72 DOMINICK AST LUMP OR MASS 07/07/2012 V73.81 HPV SCREENING 07/07/2012 V76.10 DOMINICK AST CANCER SCREENING 07/07/2012 V76.47 VAG INAL PAP SMEAR SCREENING 07/07/2012 REYNALDO VIEIRA APRN T 611.71 BREAST PAIN 07/07/2012 REYNALDO VIEIRA APRN T 611.72 BREAST LUMP OR MASS 07/07/2012 REYNALDO VIEIRA APRN T V73.81 HPV SCREENING 07/07/2012 REYNALDO VIEIRA APRN V76.10 BREAST CANCER SCREENING 07/07/2012 REYNALDO VIEIRA APRN V76.47 VAGINAL PAP SMEAR SCREENING 07/07/2012 REYNALDO [...] T V76.47 VAGINAL PAP SMEAR SCREENING 07/07/2012 SABIHA MAST MD 611.7 1 BREAST PAIN 07/07/2012 SABIHA MAST MD 611.7 2 BREAST LUMP OR MASS 07/07/2012 SABIHA MAST MD V73.8 1 HPV SCREENING 07/07/2012 SABIHA MAST MD V76.1 0 BREAST CANCER SCREENING 07/07/2012 SABIHA MAST MD V76.4 7 VAGINAL PAP SMEAR SCREENING 07/07/2012 ARGUETA DO, KIKA K 611.71 BREAST PAIN 07/07/2012 ARGUETA DO, KIKA K 611.72 BREAST LUMP OR MASS 07/07/2012 ARGUETA DO, KIKA K V73.81 HPV SCREENING 07/07/2012 ARGUETA DO, KIKA K V76.10 BREAST CANCER SCREENING 07/07/2012 ARGUETA DO, KIKA K V76.47 VAGINAL PAP SMEAR SCREENING 07/07/2012 MARLENE [...] APRN V76.47 VAGINAL PAP SMEAR SCREENING 07/07/2012 [facility], ARASH R 611.71 BREAST PAIN 07/07/2012 [facility], [facility]ASH R 611.72 BREAST LUMP OR MASS 07/07/2012 [facility]ASH R V73.81 HPV SCREENING 07/07/2012 [facility]ASH R V76.10 BREAST CANCER SCREENING 07/07/2012 [facility]ASH R V76.47 VAGINAL PAP SMEAR SCREENING 07/07/2012 BRODY ARAYA MD 611 .71 BREAST PAIN 07/07/2012 BRODY ARAYA MD 611 .72 BREAST LUMP OR MASS 07/07/2012 BRODY ARAYA MD V73 .81 HPV SCREENING 07/07/2012 BRODY ARAYA MD V76 .10 BREAST CANCER SCREENING 07/07/2012 BRODY ARAYA MD V76 .47 VAGINAL PAP SMEAR SCREENING 07/07/2012 REYNALDO VIEIRA APRN T 611.71 BREAST PAIN 07/07/2012 REYNALDO VIEIRA APRN T 611.72 BREAST LUMP OR MASS 07/07/2012 REYNALDO VIEIRA APRN T V73.81 HPV SCREENING 07/07/2012 REYNALDO VIEIRA APRN T V76.10 BREAST CANCER SCREENING 07/07/2012 REYNALDO VIEIRA APRN V76.47 VAGINAL PAP SMEAR SCREENING 07/07/2012 [facility], ARASH R 611.71 BREAST PAIN 07/07/2012 [facility]ASH R 611.72 BREAST LUMP OR MASS 07/07/2012 [facility], [facility]ASH R V73.81 HPV SCREENING 07/07/2012 [facility], [facility]ASH R V76.10 BREAST CANCER SCREENING 07/07/2012 [facility]ASH R V76.47 VAGINAL PAP SMEAR SCREENING 07/07/2012 REYNALDO VIEIRA APRN T 611.71 BREAST PAIN 07/07/2012 REYNALDO VIEIRA APRN T 611.72 BREAST LUMP OR MASS 07/07/2012 REYNALDO VIEIRA APRN T V73.81 HPV SCREENING 07/07/2012 REYNALDO VIEIRA APRN V76.10 BREAST CANCER SCREENING 07/07/2012 REYNALDO VIEIRA APRN V76.47 VAGINAL PAP SMEAR SCREENING 07/07/2012 BRO ARGUETA DOA K 611.71 BREAST PAIN 07/07/2012 ELLIE DE LA TORRE KIKA K 611.72 BREAST LUMP OR MASS 07/07/2012 ARGUETA DO KIKA K V73.81 HPV SCREENING 07/07/2012 ARGUETA DO KIKA K V76.10 BREAST CANCER SCREENING 07/07/2012 ARGUETA DO KIKA K V76.47 VAGINAL PAP SMEAR SCREENING 07/07/2012 [facility], ARASH R 611.71 BREAST PAIN 07/07/2012 [facility], ARASH R 611.72 BREAST LUMP OR MASS 07/07/2012 [facility], ARASH R V73.81 HPV SCREENING 07/07/2012 [facility], ARASH R V76.10 BREAST CANCER SCREENING 07/07/2012 [facility], [facility]ASH R V76.47 VAGINAL PAP SMEAR SCREENING 07/07/2012 MARLENE CABRERA APRN 611.71 BREAST PAIN 07/07/2012 MARLENE CABRERA APRN 611.72 BREAST LUMP OR MASS 07/07/2012 MARLENE CABRERA APRN V73.81 HPV SCREENING 07/07/2012 MARLENE CABRERA APRN V76.10 BREAST CANCER SCREENING 07/07/2012 MARLENE CABRERA APRN V76.47 VAGINAL PAP SMEAR SCREENING 07/07/2012 [facility], ARASH R 611.71 BREAST PAIN 07/07/2012 [facility], ARASH R 611.72 BREAST LUMP OR MASS 07/07/2012 [facility], ARASH R V73.81 HPV SCREENING 07/07/2012 [facility], ARASH R V76.10 BREAST CANCER SCREENING 07/07/2012 [facility], ARASH R V76.47 VAGINAL PAP SMEAR SCREENING 07/07/2012 ITZ JUNIOR APRN 611.71 BREAST PAIN 07/07/2012 ITZ JUNIOR APRN 611.72 BREAST LUMP OR MASS 07/07/2012 ROSA JUNIOR APRNA J V73.81 HPV SCREENING 07/07/2012 ROSA JUNIOR APRNA J V76.10 BREAST CANCER SCREENING 07/07/2012 ROSA JUNIOR APRNA Merrick V76.47 VAGINAL PAP SMEAR SCREENING 07/07/2012 ROSA JUNIOR APRNA J 611.71 BREAST PAIN 07/07/2012 ROSA JUNIOR APRNA J 611.72 BREAST LUMP OR MASS 07/07/2012 ROSA JUNIOR APRNA J V73.81 HPV SCREENING 07/07/2012 ROSA JUNIOR APRNA J V76.10 BREAST CANCER SCREENING 07/07/2012 SANDI LASSITER ITZ J V76.47 VAGINAL PAP SMEAR SCREENING 07/07/2012 BRODY ARAYA MD 611 .71 BREAST PAIN 07/07/2012 BRODY ARAYA MD 611 .72 BREAST LUMP OR MASS 07/07/2012 BRODY ARAYA MD V73 .81 HPV SCREENING 07/07/2012 BRODY ARAYA MD V76 .10 BREAST CANCER SCREENING 07/07/2012 BRODY ARAYA MD V76 .47 VAGINAL PAP SMEAR SCREENING 07/07/2012 MARSHAL MD, BRODY N 611 .71 BREAST PAIN 07/07/2012 MARSHAL SAUCEDO, BRODY Linda 611 .72 BREAST LUMP OR MASS 07/07/2012 MARSHAL SAUCEDO, BRODY Linda V73 .81 HPV SCREENING 07/07/2012 MARSHAL SAUCEDO, BRODY Linda V76 .10 BREAST CANCER SCREENING 07/07/2012 MARSHAL SAUCEDO, BRODY Linda V76 .47 VAGINAL PAP SMEAR SCREENING 07/07/2012 SANDI FIGURE MODEL, ITZ J 611.71 BREAST PAIN 07/07/2012 SANDI FIGURE MODEL, ITZ J 611.72 BREAST LUMP OR MASS 07/07/2012 SANDI FIGURE MODEL, ITZ J V73.81 HPV SCREENING 07/07/2012 SANDI LYNNN, ITZ J V76.10 BREAST CANCER SCREENING 07/07/2012 SANDI LASSITER, ITZ J V76.47 VAGINAL PAP SMEAR SCREENING 07/07/2012 ACOSTA [...] PAP SMEAR SCREENING 07/07/2012 SABIHA MAST MD 611.7 1 BREAST PAIN 07/07/2012 SABIHA MAST MD 611.7 2 BREAST LUMP OR MASS 07/07/2012 SABIHA MAST MD V73.8 1 HPV SCREENING 07/07/2012 SABIHA MAST MD V76.1 0 BREAST CANCER SCREENING 07/07/2012 SABIHA MAST MD V76.4 7 VAGINAL PAP SMEAR SCREENING 07/07/2012 ARGUETA DO, KIKA K 611.71 BREAST PAIN 07/07/2012 ARGUETA DO, KIKA K 611.72 BREAST LUMP OR MASS 07/07/2012 ARGUETA DO, KIKA K V73.81 HPV SCREENING 07/07/2012 ARGUETA DO, KIKA K V76.10 BREAST CANCER SCREENING 07/07/2012 ARGUETA DO, KIKA K V76.47 VAGINAL PAP SMEAR SCREENING 07/07/2012 SANDI LASSITER ITZ J 611.71 BREAST PAIN 07/07/2012 SANDI FIGURE MODEL ITZ J 611.72 BREAST LUMP OR MASS 07/07/2012 SANDI FIGURE MODEL ITZ J V73.81 HPV SCREENING 07/07/2012 SANDI FIGURE MODEL, ITZ J V76.10 BREAST CANCER SCREENING 07/07/2012 SANDI LASSITER ITZ J V76.47 VAGINAL PAP SMEAR SCREENING 07/07/2012 SANDI LASSITER ITZ J 611.71 BREAST PAIN 07/07/2012 SANDI LASSITER ITZ J 611.72 BREAST LUMP OR MASS 07/07/2012 SANDI LASSITER ITZ J V73.81 HPV SCREENING 07/07/2012 SANDI FIGURE MODEL, ITZ J V76.10 BREAST CANCER SCREENING 07/07/2012 SANDI FIGURE MODEL, ITZ J V76.47 VAGINAL PAP SMEAR SCREENING 07/07/2012 SANDI LASSITER ITZ J 611.71 BREAST PAIN 07/07/2012 SANDI LASSITER ITZ J 611.72 BREAST LUMP OR MASS 07/07/2012 SANDI FIGURE MODEL, ITZ J V73.81 HPV SCREENING 07/07/2012 SANDI FIGURE MODEL ITZ J V76.10 BREAST CANCER SCREENING 07/07/2012 SANDI FIGURE MODEL, ITZ J V76.47 VAGINAL PAP SMEAR SCREENING 07/07/2012 SADNI FIGURE MODEL, ITZ J 611.71 BREAST PAIN 07/07/2012 SANDI FIGURE MODEL, ITZ J 611.72 BREAST LUMP OR MASS 07/07/2012 SANDI FIGURE MODEL, ITZ J V73.81 HPV SCREENING 07/07/2012 SANDI FIGURE MODEL, ITZ J V76.10 BREAST CANCER SCREENING 07/07/2012 SANDI FIGURE MODEL, ITZ J V76.47 VAGINAL PAP SMEAR SCREENING 07/07/2012 ARGUETA DO, KIKA K 611.71 BREAST PAIN 07/07/2012 KIKA ARGUETA DO 611.72 BREAST LUMP OR MASS 07/07/2012 KIKA ARGUETA DO V73.81 HPV SCREENING 07/07/2012 KIKA ARGUETA DO V76.10 BREAST CANCER SCREENING 07/07/2012 KIKA ARGUETA DO V76.47 VAGINAL PAP SMEAR SCREENING 09/16/2012 461.9 SINU SITIS ACUTE 09/16/2012 784.0 HEADACHE 09/16/2012 787.02 IVETH SEA ALONE 09/16/2012 461.9 SINU SITIS ACUTE 09/16/2012 784.0 HEADACHE 09/16/2012 787.02 IVETH SEA ALONE 09/16/2012 461.9 SINU SITIS ACUTE 09/16/2012 784.0 HEADACHE 09/16/2012 787.02 IVETH SEA ALONE 09/16/2012 461.9 SINU SITIS ACUTE 09/16/2012 784.0 HEADACHE 09/16/2012 787.02 IVETH SEA ALONE 09/16/2012 461.9 SINU SITIS ACUTE 09/16/2012 784.0 HEADACHE 09/16/2012 787.02 IVETH SEA ALONE 09/16/2012 461.9 SINU SITIS ACUTE 09/16/2012 784.0 HEADACHE 09/16/2012 787.02 IVETH SEA ALONE 09/16/2012 461.9 SINU SITIS ACUTE 09/16/2012 784.0 HEADACHE 09/16/2012 787.02 IVETH SEA ALONE 09/16/2012 461.9 SINU SITIS ACUTE 09/16/2012 784.0 HEADACHE 09/16/2012 787.02 IVETH SEA ALONE 09/16/2012 461.9 SINU SITIS ACUTE 09/16/2012 784.0 HEADACHE 09/16/2012 787.02 IVETH SEA ALONE 09/16/2012 461.9 SINU SITIS ACUTE 09/16/2012 784.0 HEADACHE 09/16/2012 787.02 IVETH SEA ALONE 09/16/2012 461.9 SINU SITIS ACUTE 09/16/2012 784.0 HEADACHE 09/16/2012 787.02 IVETH SEA ALONE 09/16/2012 461.9 SINU SITIS ACUTE 09/16/2012 784.0 HEADACHE 09/16/2012 787.02 IVETH SEA ALONE 09/16/2012 461.9 SINU SITIS ACUTE 09/16/2012 784.0 HEADACHE 09/16/2012 787.02 IVETH SEA ALONE 09/16/2012 REYNALDO VIEIRA APRN T 46 1.9 SINUSITIS ACUTE 09/16/2012 DARILE LASSITER REYNALDO T 78 4.0 HEADACHE 09/16/2012 REYNALDO VIEIRA APRN T 787.02 NAUSEA ALONE 09/16/2012 REYNALDO VIEIRA APRN T 46 1.9 SINUSITIS ACUTE 09/16/2012 DARIEL LASSITER REYNALDO T 78 4.0 HEADACHE 09/16/2012 REYNALDO VIEIRA APRN T 787.02 NAUSEA ALONE 09/16/2012 REYNALDO VIEIRA APRN T 46 1.9 SINUSITIS ACUTE 09/16/2012 REYNALDO VIEIRA APRN T 78 4.0 HEADACHE 09/16/2012 REYNALDO VIEIRA APRN T 787.02 NAUSEA ALONE 09/16/2012 SABIHA MAST MD 461.9 SINUSITIS ACUTE 09/16/2012 SABIHA MAST MD 784.0 HEADACHE 09/16/2012 SABIHA MAST MD 787.0 2 NAUSEA ALONE 09/16/2012 ARGUETA KIKA DE LA TORRE 461.9 SINUSITIS ACUTE 09/16/2012 ARGUETA BRO DE LA TORREA K 784.0 HEADACHE 09/16/2012 ARGUETA BRO DE LA TORREA K 787.02 NAUSEA ALONE 09/16/2012 MARLENE CABRERA APRN 461.9 SINUSITIS ACUTE 09/16/2012 MARLENE CABRERA APRN 784.0 HEADACHE 09/16/2012 MARLENE CABRERA APRN 787.02 NAUSEA ALONE 09/16/2012 MARLENE CABRERA APRN 461.9 SINUSITIS ACUTE 09/16/2012 MARLENE CABRERA APRN 784.0 HEADACHE 09/16/2012 MALRENE CABRERA APRN 787.02 NAUSEA ALONE 09/16/[facility] 09/16/2012 [facility] ARASH R 784.0 HEADACHE 09/16/2012 [facility] 787.02 NAUSEA ALONE 09/16/2012 BRODY ARAYA MD 461 .9 SINUSITIS ACUTE 09/16/2012 BRODY ARAYA MD N 784 .0 HEADACHE 09/16/2012 BRODY ARAYA MD 787 .02 NAUSEA ALONE 09/16/2012 REYNALDO VIEIRA APRN T 46 1.9 SINUSITIS ACUTE 09/16/2012 REYNALDO VIEIRA APRN T 78 4.0 HEADACHE 09/16/2012 REYNALDO VIEIRA APRN T 787.02 NAUSEA ALONE 09/16/2012 [facility], ARASH R 461.9 SINUSITIS ACUTE 09/16/2012 [facility], ARASH R 784.0 HEADACHE 09/16/2012 [facility], ARASH R 787.02 NAUSEA ALONE 09/16/2012 REYNALDO VIEIRA APRN T 46 1.9 SINUSITIS ACUTE 09/16/2012 REYNALDO VIEIRA APRN T 78 4.0 HEADACHE 09/16/2012 REYNALDO VIEIRA APRN T 787.02 NAUSEA ALONE 09/16/2012 ARGUETA DO, KIKA K 461.9 SINUSITIS ACUTE 09/16/2012 ARGUETA DO, KIKA K 784.0 HEADACHE 09/16/2012 ARGUETA DO, KIKA K 787.02 NAUSEA ALONE 09/16/2012 [facility], ARASH R 461.9 SINUSITIS ACUTE 09/16/2012 [facility], ARASH R 784.0 HEADACHE 09/16/2012 [facility], ARASH R 787.02 NAUSEA ALONE 09/16/2012 MARLENE CABRERA APRN 461.9 SINUSITIS ACUTE 09/16/2012 MARLENE CABRERA APRN 784.0 HEADACHE 09/16/2012 MARLENE CABRERA APRN 787.02 NAUSEA ALONE 09/16/2012 [facility], ARASH R 461.9 SINUSITIS ACUTE 09/16/2012 [facility], ARASH R 784.0 HEADACHE 09/16/2012 [facility], ARASH R 787.02 NAUSEA ALONE 09/16/2012 [facility] APRN 461.9 SINUSITIS ACUTE 09/16/2012 IT[facility] JUNIOR APRN 784.0 HEADACHE 09/16/2012 ITZ JUNIOR APRN 787.02 NAUSEA ALONE 09/16/2012 ITZ JUNIOR APRN 461.9 SINUSITIS ACUTE 09/16/2012 ITZ JUNIOR APRN J 784.0 HEADACHE 09/16/2012 ITZ JUNIOR APRN 787.02 NAUSEA ALONE 09/16/2012 BRODY ARAYA MD N 461 .9 SINUSITIS ACUTE 09/16/2012 [facility] SAUCEDO, BRODY N 784 .0 HEADACHE 09/16/2012 [facility]SH[facility] SAUCEDO, BRODY N 787 .02 NAUSEA ALONE 09/16/2012 [facility]SH[facility] SAUCEDO, BRODY N 461 .9 SINUSITIS ACUTE 09/16/2012 [facility]SH[facility] SAUCEDO, BRODY N 784 .0 HEADACHE 09/16/2012 MARSH[facility] SAUCEDO, BRODY N 787 .02 NAUSEA ALONE 09/16/2012 IT[facility] JUNIOR APRN 461.9 SINUSITIS ACUTE 09/16/2012 ITZ JUNIOR APRN 784.0 HEADACHE 09/16/2012 ITZ JUNIOR APRN 787.02 NAUSEA ALONE 09/16/2012 [facility], BENJI 46 1.9 SINUSITIS ACUTE 09/16/2012 [facility] D[facility], BENJI 78 4.0 HEADACHE 09/16/2012 [facility] DDS, BENJI 787.02 NAUSEA ALONE 09/16/2012 [facility] D[facility], BENJI 46 1.9 SINUSITIS ACUTE 09/16/2012 [facility] D[facility], BENJI 78 4.0 HEADACHE 09/16/2012 [facility] DDS, BENJI 787.02 NAUSEA ALONE 09/16/2012 SABIHA MAST MD 461.9 SINUSITIS ACUTE 09/16/2012 SABIHA MAST MD 784.0 HEADACHE 09/16/2012 SABIHA MAST MD 787.0 2 NAUSEA ALONE 09/16/2012 ARGUETA KIKA DE LA TORRE K 461.9 SINUSITIS ACUTE 09/16/2012 ARGUETA DOKIKA K 784.0 HEADACHE 09/16/2012 ARGUETA DOKIKA K 787.02 NAUSEA ALONE 09/16/2012 ITZ JUNIOR APRN J 461.9 SINUSITIS ACUTE 09/16/2012 ITZ JUNIOR APRN J 784.0 HEADACHE 09/16/2012 ITZ JUNIOR APRN 787.02 NAUSEA ALONE 09/16/2012 SANDI LASSITER, ITZ J 461.9 SINUSITIS ACUTE 09/16/2012 SANDI LASSITER, ITZ J 784.0 HEADACHE 09/16/2012 SANDI LASSITER, ITZ J 787.02 NAUSEA ALONE 09/16/2012 SANDI LASSITER, ITZ J 461.9 SINUSITIS ACUTE 09/16/2012 SANDI LASSITER, ITZ J 784.0 HEADACHE 09/16/2012 SANDI LASSITER ITZ J 787.02 NAUSEA ALONE 09/16/2012 SANDI LASSITER ITZ J 461.9 SINUSITIS ACUTE 09/16/2012 SANDI LASSITER, ITZ J 784.0 HEADACHE 09/16/2012 SANDI LASSITER, ITZ J 787.02 NAUSEA ALONE 09/16/2012 ARGUETA [...] 09/22/2012 788.1 DYSURIA 09/22/2012 REYNALDO VIEIRA APRN 78 8.1 DYSURIA 09/22/2012 REYNALDO VIEIRA APRN 78 8.1 DYSURIA 09/22/2012 REYNALDO VIEIRA APRN 78 8.1 DYSURIA 09/22/2012 SABIHA MAST MD 788.1 DYSURIA 09/22/2012 KIKA ARGUETA DO K 788.1 DYSURIA 09/22/2012 MARLENE CABRERA APRN 788.1 DYSURIA 09/22/2012 MARLENE CABRERA APRN 788.1 DYSURIA 09/22/2012 [facility], ARASH Saucedo 788.1 DYSURIA 09/22/2012 [facility] SAUCED[facility], BRODY N 788 .1 DYSURIA 09/22/2012 REYNALDO VIEIRA APRN T 78 8.1 DYSURIA 09/22/2012 [facility], ARASH R 788.1 DYSURIA 09/22/2012 REYNALDO VIEIRA APRN 78 8.1 DYSURIA 09/22/2012 ARGUETA KIKA DE LA TORRE K 788.1 DYSURIA 09/22/2012 [facility], ARASH R 788.1 DYSURIA 09/22/2012 MARLENE CABRERA APRN 788.1 DYSURIA 09/22/2012 [facility], ARASH R 788.1 DYSURIA 09/22/2012 ROSA JUNIOR APRNA J 788.1 DYSURIA 09/22/2012 ROSA JUNIOR APRNA J 788.1 DYSURIA 09/22/2012 [facility] SAUCEDO, BRODY N 788 .1 DYSURIA 09/22/2012 [facility] SAUCEDO, BRODY N 788 .1 DYSURIA 09/22/2012 ROSA JUNIOR APRNA J 788.1 DYSURIA 09/22/2012 [facility], BENJI 78 8.1 DYSURIA 09/22/2012 [facility] D[facility], BENJI 78 8.1 DYSURIA 09/22/2012 KEZIA SAUCEDO, SABIHA 788.1 DYSURIA 09/22/2012 ARGUETA KIKA DE LA TORRE K 788.1 DYSURIA 09/22/2012 SANDI LASSITER, ITZ J 788.1 DYSURIA 09/22/2012 SAND[facility] LASSITER, ITZ J 788.1 DYSURIA 09/22/2012 SANDI LASSITER ITZ J 788.1 DYSURIA 09/22/2012 SANDI LASSITER, ITZ J 788.1 DYSURIA 09/22/2012 ARGUETA DOBROA K 788.1 DYSURIA 11/15/2012 724.5 BACK PAIN, GENERAL 11/15/2012 724.5 BACK PAIN, GENERAL 11/15/2012 724.5 BACK PAIN, GENERAL 11/15/2012 724.5 BACK PAIN, GENERAL 11/15/2012 724.5 BACK PAIN, GENERAL 11/15/2012 REYNALDO VIEIRA APRN 72 4.5 BACK PAIN, GENERAL 11/15/2012 REYNALDO VIEIRA APRN 72 4.5 BACK PAIN, GENERAL 11/15/2012 REYNALDO VIEIRA APRN 72 4.5 BACK PAIN, GENERAL 11/15/2012 SABIHA MAST MD 724.5 BACK PAIN, GENERAL 11/15/2012 KIKA ARGUETA DO 724.5 BACK PAIN, GENERAL 11/15/2012 MARLENE CABRERA APRN 724.5 BACK PAIN, GENERAL 11/15/2012 MARLENE CABRERA APRN 724.5 BACK PAIN, GENERAL 11/15/2012 [facility], ARASH R 724.5 BACK PAIN, GENERAL 11/15/2012 BRODY ARAYA MD 724 .5 BACK PAIN, GENERAL 11/15/2012 REYNALDO VIEIRA APRN 72 4.5 BACK PAIN, GENERAL 11/15/2012 [facility], ARASH R 724.5 BACK PAIN, GENERAL 11/15/2012 REYNALDO VIEIRA APRN 72 4.5 BACK PAIN, GENERAL 11/15/2012 KIKA ARGUETA DO 724.5 BACK PAIN, GENERAL 11/15/2012 [facility], ARASH R 724.5 BACK PAIN, GENERAL 11/15/2012 MARLENE CABRERA APRN 724.5 BACK PAIN, GENERAL 11/15/2012 [facility], ARASH R 724.5 BACK PAIN, GENERAL 11/15/2012 ITZ JUNIOR APRN 724.5 BACK PAIN, GENERAL 11/15/2012 ITZ JUNIOR APRN 724.5 BACK PAIN, GENERAL 11/15/2012 BRODY ARAYA MD 724 .5 BACK PAIN, GENERAL 11/15/2012 BRODY ARAYA MD 724 .5 BACK PAIN, GENERAL 11/15/2012 ITZ JUNIOR APRN 724.5 BACK PAIN, GENERAL 11/15/2012 [facility], BENJI 72 4.5 BACK PAIN, GENERAL 11/15/2012 [facility], BENJI 72 4.5 BACK PAIN, GENERAL 11/15/2012 SABIHA MAST MD 724.5 BACK PAIN, GENERAL 11/15/2012 KIKA ARGUETA DO 724.5 BACK PAIN, GENERAL 11/15/2012 ITZ JUNIOR APRN 724.5 BACK PAIN, GENERAL 11/15/2012 ITZ JUNIOR APRN 724.5 BACK PAIN, GENERAL 11/15/2012 ITZ JUNIOR APRN 724.5 BACK PAIN, GENERAL 11/15/2012 ITZ JUNIOR APRN 724.5 BACK PAIN, GENERAL 11/15/2012 KIKA ARGUETA DO K 724.5 BACK PAIN, GENERAL 12/25/2012 466.0 ACUT E BRONCHITIS 12/25/2012 466.0 ACUT E BRONCHITIS 12/25/2012 466.0 ACUT E BRONCHITIS 12/25/2012 REYNALDO VIEIRA APRN 46 6.0 ACUTE BRONCHITIS 12/25/2012 REYNALDO VIEIRA APRN 46 6.0 ACUTE BRONCHITIS 12/25/2012 REYNALDO VIEIRA APRN 46 6.0 ACUTE BRONCHITIS 12/25/2012 SABIHA MAST MD 466.0 ACUTE BRONCHITIS 12/25/2012 KIKA ARGUETA DO K 466.0 ACUTE BRONCHITIS 12/25/2012 MARLENE CABRERA APRN 466.0 ACUTE BRONCHITIS 12/25/2012 MARLENE CABRERA APRN 466.0 ACUTE BRONCHITIS 12/25/2012 [facility], ARASH R 466.0 ACUTE BRONCHITIS 12/25/2012 BRODY ARAYA MD 466 .0 ACUTE BRONCHITIS 12/25/2012 REYNALDO VIEIRA APRN 46 6.0 ACUTE BRONCHITIS 12/25/2012 [facility], ARASH R 466.0 ACUTE BRONCHITIS 12/25/2012 REYNALDO VIEIRA APRN 46 6.0 ACUTE BRONCHITIS 12/25/2012 ARGUETA KIKA DE LA TORRE K 466.0 ACUTE BRONCHITIS 12/25/2012 [facility], ARASH R 466.0 ACUTE BRONCHITIS 12/25/2012 MARLENE CABRERA APRN 466.0 ACUTE BRONCHITIS 12/25/2012 [facility], ARASH R 466.0 ACUTE BRONCHITIS 12/25/2012 ITZ JUNIOR APRN 466.0 ACUTE BRONCHITIS 12/25/2012 ITZ JUNIOR APRN 466.0 ACUTE BRONCHITIS 12/25/2012 BRODY ARAYA MD 466 .0 ACUTE BRONCHITIS 12/25/2012 BRODY ARAYA MD 466 .0 ACUTE BRONCHITIS 12/25/2012 ITZ JUNIOR APRN 466.0 ACUTE BRONCHITIS 12/25/2012 [facility] MIKESRIVASW 46 6.0 ACUTE BRONCHITIS 12/25/2012 [facility], BENJI 46 6.0 ACUTE BRONCHITIS 12/25/2012 SABIHA MAST MD 466.0 ACUTE BRONCHITIS 12/25/2012 ARGUETA DOKIKA K 466.0 ACUTE BRONCHITIS 12/25/2012 SANDI FIGURE MODEL, ITZ J 466.0 ACUTE BRONCHITIS 12/25/2012 SANDI FIGURE MODEL, ITZ J 466.0 ACUTE BRONCHITIS 12/25/2012 SANDI FIGURE MODEL, ITZ J 466.0 ACUTE BRONCHITIS 12/25/2012 SANDI FIGURE MODEL, ITZ J 466.0 ACUTE BRONCHITIS 12/25/2012 ARGUETA DO, KIKA K 466.0 ACUTE BRONCHITIS 01/03/2013 625.9 PELV IC PAIN 01/03/2013 625.9 PELV IC PAIN 01/03/2013 625.9 PELV IC PAIN 01/03/2013 REYNALDO VIEIRA APRN T 62 5.9 PELVIC PAIN 01/03/2013 REYNALDO VIEIRA APRN T 62 5.9 PELVIC PAIN 01/03/2013 REYNALDO VIEIRA APRN T 62 5.9 PELVIC PAIN 01/03/2013 SABIHA MAST MD 625.9 PELVIC PAIN 01/03/2013 KIKA ARGUETA DO K 625.9 PELVIC PAIN 01/03/2013 MARLENE CABRERA APRN 625.9 PELVIC PAIN 01/03/2013 MARLENE CABRERA APRN 625.9 PELVIC PAIN 01/03/2013 [facility], ARASH R 625.9 PELVIC PAIN 01/03/2013 BRODY ARAYA MD 625 .9 PELVIC PAIN 01/03/2013 REYNALDO VIEIRA APRN T 62 5.9 PELVIC PAIN 01/03/2013 [facility] 625.9 PELVIC PAIN 01/03/2013 REYNALDO VIEIRA APRN T 62 5.9 PELVIC PAIN 01/03/2013 BRO ARGUETA DOA K 625.9 PELVIC PAIN 01/03/2013 [facility] 625.9 PELVIC PAIN 01/03/2013 MARLENE CABRERA APRN 625.9 PELVIC PAIN 01/03/2013 [facility] 625.9 PELVIC PAIN 01/03/2013 SANDI LASSITER, ITZ J 625.9 PELVIC PAIN 01/03/2013 SANDI LASSITER, ITZ J 625.9 PELVIC PAIN 01/03/2013 BRODY ARAYA MD 625 .9 PELVIC PAIN 01/03/2013 [facility] SAUCEOD, BRODY Linda 625 .9 PELVIC PAIN 01/03/2013 SANDI FIGURE MODEL, ITZ J 625.9 PELVIC PAIN 01/03/2013 [facility], BENJI 62 5.9 PELVIC PAIN 01/03/2013 [facility] D[facility], BENJI 62 5.9 PELVIC PAIN 01/03/2013 SABIHA MAST MD 625.9 PELVIC PAIN 01/03/2013 KIKA ARGUETA DO K 625.9 PELVIC PAIN 01/03/2013 SANDI FIGURE MODEL, ITZ J 625.9 PELVIC PAIN 01/03/2013 SANDI FIGURE MODEL, IZT J 625.9 PELVIC PAIN 01/03/2013 SANDI FIGURE MODEL, ITZ J 625.9 PELVIC PAIN 01/03/2013 SANDI FIGURE MODEL, ITZ J 625.9 PELVIC PAIN 01/03/2013 KIKA ARGUETA DO K 625.9 PELVIC PAIN 01/04/2013 MAYRA QUINONES Ot 599.0 URIN TRACT INFECTION NOS 01/04/2013 MAYRA QUINONES Ot 616.10 VAGINITIS NOS 02/23/2013 REYNALDO VIEIRA APRN 726.71 ACHILLES BURSITIS OR TENDINITIS 02/23/2013 REYNALDO VIEIRA APRN 726.71 ACHILLES BURSITIS OR TENDINITIS 02/23/2013 REYNALDO VIEIRA APRN 726.71 ACHILLES BURSITIS OR TENDINITIS 02/23/2013 SABIHA MAST MD 726.7 1 ACHILLES BURSITIS OR TENDINITIS 02/23/2013 KIKA ARGUETA DO 726.71 ACHILLES BURSITIS OR TENDINITIS 02/23/2013 MARLENE CABRERA APRN 726.71 ACHILLES BURSITIS OR TENDINITIS 02/23/2013 MARLENE CABRERA APRN 726.71 ACHILLES BURSITIS OR TENDINITIS 02/23/2013 [facility] 726.71 ACHILLES BURSITIS OR TENDINITIS 02/23/2013 BRODY ARAYA MD 726 .71 ACHILLES BURSITIS OR TENDINITIS 02/23/2013 REYNALDO VIEIRA APRN 726.71 ACHILLES BURSITIS OR TENDINITIS 02/23/2013 [facility] 726.71 ACHILLES BURSITIS OR TENDINITIS 02/23/2013 REYNALDO VIEIRA APRN 726.71 ACHILLES BURSITIS OR TENDINITIS 02/23/2013 KIKA ARGUETA DO 726.71 ACHILLES BURSITIS OR TENDINITIS 02/23/2013 [facility] 726.71 ACHILLES BURSITIS OR TENDINITIS 02/23/2013 MARLENE CABRERA APRN 726.71 ACHILLES BURSITIS OR TENDINITIS 02/23/2013 [facility] 726.71 ACHILLES BURSITIS OR TENDINITIS 02/23/2013 ITZ JUNIOR APRN 726.71 ACHILLES BURSITIS OR TENDINITIS 02/23/2013 ITZ JUNIOR APRN 726.71 ACHILLES BURSITIS OR TENDINITIS 02/23/2013 BRODY ARAYA MD 726 .71 ACHILLES BURSITIS OR TENDINITIS 02/23/2013 BRODY ARAYA MD 726 .71 ACHILLES BURSITIS OR TENDINITIS 02/23/2013 ITZ JUNIOR APRN 726.71 ACHILLES BURSITIS OR TENDINITIS 02/23/2013 BENJI ACOSTA DDS 726.71 ACHILLES BURSITIS OR TENDINITIS 02/23/2013 BENJI ACOSTA DDS 726.71 ACHILLES BURSITIS OR TENDINITIS 02/23/2013 SABIHA MAST MD 726.7 1 ACHILLES BURSITIS OR TENDINITIS 02/23/2013 KIKA ARGUETA [...] V04.81 FLU SHOT 02/28/2013 SABIHA MAST MD V03.8 2 PPV23 (PNEUMOVAX) DX 02/28/2013 SABIHA MAST MD V04.8 1 FLU SHOT 02/28/2013 ARGUETA , KIKA Hastings V03.82 PPV23 (PNEUMOVAX) DX 02/28/2013 ARGUETA , KIKA Hastings V04.81 FLU SHOT 02/28/2013 MARLENE CABRERA APRN V03.82 PPV23 (PNEUMOVAX) DX 02/28/2013 [facility] V04.81 FLU SHOT 02/28/2013 [facility] MARLENE LASSITER V03.82 PPV23 (PNEUMOVAX) DX 02/28/2013 [facility] MARLENE LASSITER V04.81 FLU SHOT 02/28/2013 [facility], ARASH R V03.82 PPV23 (PNEUMOVAX) DX 02/28/2013 [facility], ARASH R V04.81 FLU SHOT 02/28/2013 BRODY ARAYA MD V03 .82 PPV23 (PNEUMOVAX) DX 02/28/2013 BRODY ARAYA MD V04 .81 FLU SHOT 02/28/2013 REYNALDO VIEIRA APRN V03.82 PPV23 (PNEUMOVAX) DX 02/28/2013 REYNALDO VIEIRA APRN V04.81 FLU SHOT 02/28/2013 [facility], ARASH R V03.82 PPV23 (PNEUMOVAX) DX 02/28/2013 [facility], ARASH R V04.81 FLU SHOT 02/28/2013 REYNALDO VIEIRA APRN V03.82 PPV23 (PNEUMOVAX) DX 02/28/2013 REYNALDO VIEIRA APRN V04.81 FLU SHOT 02/28/2013 KIKA ARGUETA DO V03.82 PPV23 (PNEUMOVAX) DX 02/28/2013 KIKA ARGUETA DO K V04.81 FLU SHOT 02/28/2013 [facility], ARASH R V03.82 PPV23 (PNEUMOVAX) DX 02/28/2013 [facility], ARASH R V04.81 FLU SHOT 02/28/2013 MARLENE CABRERA APRN V03.82 PPV23 (PNEUMOVAX) DX 02/28/2013 MARLENE CABRERA APRN V04.81 FLU SHOT 02/28/2013 [facility], ARASH R V03.82 PPV23 (PNEUMOVAX) DX 02/28/2013 [facility], ARASH R V04.81 FLU SHOT 02/28/2013 ITZ JUNIOR APRN V03.82 PPV23 (PNEUMOVAX) DX 02/28/2013 ITZ JUNIOR APRN V04.81 FLU SHOT 02/28/2013 ITZ JUNIOR APRN V03.82 PPV23 (PNEUMOVAX) DX 02/28/2013 ITZ JUNIOR APRN V04.81 FLU SHOT 02/28/2013 BRODY ARAYA MD V03 .82 PPV23 (PNEUMOVAX) DX 02/28/2013 BRODY ARAYA MD V04 .81 FLU SHOT 02/28/2013 BRODY ARAYA MD V03 .82 PPV23 (PNEUMOVAX) DX 02/28/2013 BRODY ARAYA MD V04 .81 FLU SHOT 02/28/2013 ITZ JUNIOR APRN V03.82 PPV23 (PNEUMOVAX) DX 02/28/2013 ITZ JUNIOR APRN V04.81 FLU SHOT 02/28/2013 [facility] DDS, BENJI V03.82 PPV23 (PNEUMOVAX) DX 02/28/2013 [facility] DDS, BENJI V04.81 FLU SHOT 02/28/2013 [facility] DDS, BENJI V03.82 PPV23 (PNEUMOVAX) DX 02/28/2013 [facility] DDS, BENJI V04.81 FLU SHOT 02/28/2013 SABIHA MAST MD V03.8 2 PPV23 (PNEUMOVAX) DX 02/28/2013 SABIHA MAST MD V04.8 1 FLU SHOT 02/28/2013 KIKA ARGUETA DO V03.82 PPV23 (PNEUMOVAX) DX 02/28/2013 KIKA ARGUETA DO V04.81 FLU SHOT 02/28/2013 ITZ JUNIOR APRN V03.82 PPV23 (PNEUMOVAX) DX 02/28/2013 SANDI FIGURE MODEL, ITZ J V04.81 FLU SHOT 02/28/2013 SANDI FIGURE MODEL, ITZ J V03.82 PPV23 (PNEUMOVAX) DX 02/28/2013 SANDI FIGURE MODEL, ITZ J V04.81 FLU SHOT 02/28/2013 SANDI FIGURE MODEL, ITZ J V03.82 PPV23 (PNEUMOVAX) DX 02/28/2013 SANDI FIGURE MODEL, ITZ J V04.81 FLU SHOT 02/28/2013 SANDI FIGURE MODEL, ITZ J V03.82 PPV23 (PNEUMOVAX) DX 02/28/2013 SANDI FIGURE MODEL, ITZ J V04.81 FLU SHOT 02/28/2013 KIKA ARGUETA DO K V03.82 PPV23 (PNEUMOVAX) DX 02/28/2013 KIKA ARGUETA DO K V04.81 FLU SHOT 03/23/2013 SABIHA MAST MD 599.0 URINARY TRACT INFECTION 03/23/2013 KIKA ARGUETA DO 599.0 URINARY TRACT INFECTION 03/23/2013 MARLENE CABRERA APRN 599.0 URINARY TRACT INFECTION 03/23/2013 MARLENE CABRERA APRN 599.0 URINARY TRACT INFECTION 03/23/2013 [facility], ARASH R 599.0 URINARY TRACT INFECTION 03/23/2013 BRODY ARAYA MD 599 .0 URINARY TRACT INFECTION 03/23/2013 REYNALDO VIEIRA APRN 59 9.0 URINARY TRACT INFECTION 03/23/2013 [facility], ARASH R 599.0 URINARY TRACT INFECTION 03/23/2013 REYNALDO VIEIRA APRN 59 9.0 URINARY TRACT INFECTION 03/23/2013 KIKA ARGUETA DO 599.0 URINARY TRACT INFECTION 03/23/2013 [facility], ARASH R 599.0 URINARY TRACT INFECTION 03/23/2013 MARLENE CABRERA APRN 599.0 URINARY TRACT INFECTION 03/23/2013 [facility], ARASH R 599.0 URINARY TRACT INFECTION 03/23/2013 IZT JUNIOR APRN 599.0 URINARY TRACT INFECTION 03/23/2013 ITZ JUNIOR APRN 599.0 URINARY TRACT INFECTION 03/23/2013 MARSHAL MD, BRODY N 599 .0 URINARY TRACT INFECTION 03/23/2013 BRODY ARAYA MD N 599 .0 URINARY TRACT INFECTION 03/23/2013 SANDI LYNNN, ITZ J 599.0 URINARY TRACT INFECTION 03/23/2013 ACOSTA DDS, BENJI 59 9.0 URINARY TRACT INFECTION 03/23/2013 ACOSTA DDS, BENJI 59 9.0 URINARY TRACT INFECTION 03/23/2013 SABIHA MAST MD 599.0 URINARY TRACT INFECTION 03/23/2013 ARGUETA DO, KIKA K 599.0 URINARY TRACT INFECTION 03/23/2013 SANDI FIGURE MODEL, ITZ J 599.0 URINARY TRACT INFECTION 03/23/2013 SANDI FIGURE MODEL, ITZ J 599.0 URINARY TRACT INFECTION 03/23/2013 SANDI LASSITER, ITZ J 599.0 URINARY TRACT INFECTION 03/23/2013 SANDI LASSITER, ITZ J 599.0 URINARY TRACT INFECTION 03/23/2013 ARGUETA DO, KIKA K 599.0 URINARY TRACT INFECTION 05/19/2013 MARLENE CABRERA APRN 793.80 abnormal mammogram 05/19/2013 MARLENE CABRERA APRN 795.19 OTHER ABNORMAL [place] SMEAR OF VAGINA AND VAGINA L HPV 05/19/2013 [facility], ARASH R 793.80 abnormal mammogram 05/19/2013 [facility], ARASH R 795.19 OTHER ABNORMAL [place] SMEAR OF VAGINA AND VAGINA L HPV 05/19/2013 BRODY ARAYA MD N 793 .80 abnormal mammogram 05/19/2013 BRODY ARAYA MD 795 .19 OTHER ABNORMAL [place] SMEAR OF VAGINA AND VAGINAL HPV 05/19/2013 REYNALDO VIEIRA APRN 793.80 abnormal mammogram 05/19/2013 REYNALDO VIEIRA APRN 795.19 OTHER ABNORMAL [place] SMEAR OF VAGINA AND VAGINA L HPV 05/19/2013 [facility], ARASH R 793.80 abnormal mammogram 05/19/2013 [facility], ARASH R 795.19 OTHER ABNORMAL [place] SMEAR OF VAGINA AND VAGINA L HPV 05/19/2013 REYNALDO VIEIRA APRN 793.80 abnormal mammogram 05/19/2013 REYNALDO VIEIRA APRN 795.19 OTHER ABNORMAL [place] SMEAR OF VAGINA AND VAGINA L HPV 05/19/2013 KIKA ARGUETA DO K 793.80 abnormal mammogram 05/19/2013 KIKA ARGUETA DO K 795.19 OTHER ABNORMAL [place] SMEAR OF VAGINA AND VAGINAL HPV 05/19/2013 [facility], ARASH R 793.80 abnormal mammogram 05/19/2013 [facility], ARASH R 795.19 OTHER ABNORMAL [place] SMEAR OF VAGINA AND VAGINA L HPV 05/19/2013 MARLENE CABRERA APRN 793.80 abnormal mammogram 05/19/2013 MARLENE CABRERA APRN 795.19 OTHER ABNORMAL [place] SMEAR OF VAGINA AND VAGINA L HPV 05/19/2013 [facility], ARASH R 793.80 abnormal mammogram 05/19/2013 [facility], ARASH R 795.19 OTHER ABNORMAL [place] SMEAR OF VAGINA AND VAGINA L HPV 05/19/2013 ITZ JUNIOR APRN 793.80 abnormal mammogram 05/19/2013 ITZ JUNIOR APRN J 795.19 OTHER ABNORMAL [place] SMEAR OF VAGINA AND VAGINA L HPV 05/19/2013 ITZ JUNIOR APRN J 793.80 abnormal mammogram 05/19/2013 ROSA JUNIOR APRNA J 795.19 OTHER ABNORMAL [place] SMEAR OF VAGINA AND VAGINA L HPV 05/19/2013 BRODY ARAYA MD N 793 .80 abnormal mammogram 05/19/2013 BRODY ARAYA MD N 795 .19 OTHER ABNORMAL [place] SMEAR OF VAGINA AND VAGINAL HPV 05/19/2013 BRODY ARAYA MD N 793 .80 abnormal mammogram 05/19/2013 BRODY ARAYA MD N 795 .19 OTHER ABNORMAL [place] SMEAR OF VAGINA AND VAGINAL HPV 05/19/2013 ITZ JUNIOR APRN J 793.80 abnormal mammogram 05/19/2013 ITZ JUNIOR APRN J 795.19 OTHER ABNORMAL [place] SMEAR OF VAGINA AND VAGINA L HPV 05/19/2013 BENIJ ACOSTA DDS 793.80 abnormal mammogram 05/19/2013 BENJI ACOSTA DDS 795.19 OTHER ABNORMAL [place] SMEAR OF VAGINA AND VAGINA L HPV 05/19/2013 BENJI ACOSTA DDS 793.80 abnormal mammogram 05/19/2013 BENJI ACOSTA DDS 795.19 OTHER ABNORMAL [place] SMEAR OF VAGINA AND VAGINA L HPV 05/19/2013 SABIHA MAST MD 793.8 0 abnormal mammogram 05/19/2013 SABIHA MAST MD 795.1 9 OTHER ABNORMAL [place] SMEAR OF VAGINA AND VAGINAL HPV 05/19/2013 ELLIE DE LA TORRE KIKA K 793.80 abnormal mammogram 05/19/2013 ELLIE DE LA TORRE KIKA K 795.19 OTHER ABNORMAL [place] SMEAR OF VAGINA AND VAGINAL HPV 05/19/2013 SANDI LASSITER, ITZ J 793.80 abnormal mammogram 05/19/2013 SANDI LASSITER, ITZ J 795.19 OTHER ABNORMAL [place] SMEAR OF VAGINA AND VAGINA L HPV 05/19/2013 SANDI LASSITER, ITZ J 793.80 abnormal mammogram 05/19/2013 SANDI LASSITER, ITZ J 795.19 OTHER ABNORMAL [place] SMEAR OF VAGINA AND VAGINA L HPV 05/19/2013 SANDI LYNNN, ITZ J 793.80 abnormal mammogram 05/19/2013 SANDI LYNNN, ITZ J 795.19 OTHER ABNORMAL [place] SMEAR OF VAGINA AND VAGINA L HPV 05/19/2013 SANDI LASSITER, ITZ J 793.80 abnormal mammogram 05/19/2013 SANDI LASSITER, ITZ J 795.19 OTHER ABNORMAL [place] SMEAR OF VAGINA AND VAGINA L HPV 05/19/2013 ELLIE DE LA TORRE KIKA K 793.80 abnormal mammogram 05/19/2013 ELLIE DE LA TORRE KIKA K 795.19 OTHER ABNORMAL [place] SMEAR OF VAGINA AND VAGINAL HPV 07/01/2013 BRODY ARAYA MD N 625 .8 OTHER SPECIFIED SYMPTOMS ASSOCIATED WITH FEMALE GENITAL ORGANS 07/01/2013 BRODY ARAYA MD 626 .9 UNSPECIFIED DISORDERS OF MENSTRUATION AND OTHER ABNORMAL BLEEDING FROM FEMALE GENITAL TRACT 07/01/2013 BRODY ARAYA MD N 782 .0 DISTURBANCE OF SKIN SENSATION 07/01/2013 REYNALDO VIEIRA APRN 62 5.8 OTHER SPECIFIED SYMPTOMS ASSOCIATED WITH FEMALE GENITAL ORGANS 07/01/2013 REYNALDO VIEIRA APRN 62 6.9 UNSPECIFIED DISORDERS OF MENSTRUATION AND OTHER ABNORMAL BLEEDING FROM FEMALE GENITAL TRACT 07/01/2013 REYNALDO VIEIRA APRN T 78 2.0 DISTURBANCE OF SKIN SENSATION 07/01/2013 [facility] OTHER SPECIFIED SYMPTOMS ASSOCIATED WITH FEMALE GENITA L ORGANS 07/01/2013 [facility], ARASH R 626.9 UNSPECIFIED DISORDERS OF MENSTRUATION AN D OTHER ABNORMAL BLEEDING FROM FEMALE GENITAL TRACT 07/01/2013 [facility] 782.0 DISTURBANCE OF SKIN SENSATION 07/01/2013 REYNALDO VIEIRA APRN 62 5.8 OTHER SPECIFIED SYMPTOMS ASSOCIATED WITH FEMALE GENITAL ORGANS 07/01/2013 REYNALDO VIEIRA APRN 62 6.9 UNSPECIFIED DISORDERS OF MENSTRUATION AND OTHER ABNORMAL BLEEDING FROM FEMALE GENITAL TRACT 07/01/2013 REYNALDO VIEIRA APRN T 78 2.0 DISTURBANCE OF SKIN SENSATION 07/01/2013 ARGUETA DO KIKA K 625.8 OTHER SPECIFIED SYMPTOMS ASSOCIATED WITH FEMALE GENITAL ORGANS 07/01/2013 ARGUETA DO KIKA K 626.9 UNSPECIFIED DISORDERS OF MENSTRUATION AND OTHER ABNORMAL BLEEDING FROM FEMALE GENITAL TRACT 07/01/2013 ARGUETA DO, KIKA K 782.0 DISTURBANCE OF SKIN SENSATION 07/01/2013 [facility].8 OTHER SPECIFIED SYMPTOMS ASSOCIATED WITH FEMALE GENITA L ORGANS 07/01/2013 [facility] 626.9 UNSPECIFIED DISORDERS OF MENSTRUATION AN D OTHER ABNORMAL BLEEDING FROM FEMALE GENITAL TRACT 07/01/2013 [facility], ARASH R 782.0 DISTURBANCE OF SKIN SENSATION 07/01/2013 MARLENE CABRERA APRN 625.8 OTHER SPECIFIED SYMPTOMS ASSOCIATED WITH FEMALE GENITA L ORGANS 07/01/2013 MARLENE CABRERA APRN 626.9 UNSPECIFIED DISORDERS OF MENSTRUATION AN D OTHER ABNORMAL BLEEDING FROM FEMALE GENITAL TRACT 07/01/2013 MARLENE CABRERA APRN 782.0 DISTURBANCE OF SKIN SENSATION 07/01/2013 [facility] OTHER SPECIFIED SYMPTOMS ASSOCIATED WITH FEMALE GENITA L ORGANS 07/01/2013 [facility] 626.9 UNSPECIFIED DISORDERS OF MENSTRUATION AN D OTHER ABNORMAL BLEEDING FROM FEMALE GENITAL TRACT 07/01/2013 [facility] 782.0 DISTURBANCE OF SKIN SENSATION 07/01/2013 ITZ JUNIOR APRN J 625.8 OTHER SPECIFIED SYMPTOMS ASSOCIATED WITH FEMALE GENITA L ORGANS 07/01/2013 ITZ JUNIOR APRN J 626.9 UNSPECIFIED DISORDERS OF MENSTRUATION AN D OTHER ABNORMAL BLEEDING FROM FEMALE GENITAL TRACT 07/01/2013 ITZ JUNIOR APRN J 782.0 DISTURBANCE OF SKIN SENSATION 07/01/2013 ROSA JUNIOR APRNA J 625.8 OTHER SPECIFIED SYMPTOMS ASSOCIATED WITH FEMALE GENITA L ORGANS 07/01/2013 ITZ JUNIOR APRN J 626.9 UNSPECIFIED DISORDERS OF MENSTRUATION AN D OTHER ABNORMAL BLEEDING FROM FEMALE GENITAL TRACT 07/01/2013 ITZ JUNIOR APRN J 782.0 DISTURBANCE OF SKIN SENSATION 07/01/2013 BRODY ARAYA MD N 625 .8 OTHER SPECIFIED SYMPTOMS ASSOCIATED WITH FEMALE GENITAL ORGANS 07/01/2013 BRODY ARAYA MD N 626 .9 UNSPECIFIED DISORDERS OF MENSTRUATION AND OTHER ABNORMAL BLEEDING FROM FEMALE GENITAL TRACT 07/01/2013 BRODY ARAYA MD N 782 .0 DISTURBANCE OF SKIN SENSATION 07/01/2013 BRODY ARAYA MD N 625 .8 OTHER SPECIFIED SYMPTOMS ASSOCIATED WITH FEMALE GENITAL ORGANS 07/01/2013 BRODY ARAYA MD N 626 .9 UNSPECIFIED DISORDERS OF MENSTRUATION AND OTHER ABNORMAL BLEEDING FROM FEMALE GENITAL TRACT 07/01/2013 BRODY ARAYA MD N 782 .0 DISTURBANCE OF SKIN SENSATION 07/01/2013 ITZ JUNIOR APRN J 625.8 OTHER SPECIFIED SYMPTOMS ASSOCIATED WITH FEMALE GENITA L ORGANS 07/01/2013 ITZ JUNIOR APRN J 626.9 UNSPECIFIED DISORDERS OF MENSTRUATION AN D OTHER ABNORMAL BLEEDING FROM FEMALE GENITAL TRACT 07/01/2013 ITZ JUNIOR APRN J 782.0 DISTURBANCE OF SKIN SENSATION 07/01/2013 BENJI ACOSTA DDS 62 5.8 OTHER SPECIFIED SYMPTOMS ASSOCIATED WITH FEMALE GENITAL ORGANS 07/01/2013 BENJI ACOSTA DDS 62 6.9 UNSPECIFIED DISORDERS OF MENSTRUATION AND OTHER ABNORMAL BLEEDING FROM FEMALE GENITAL TRACT 07/01/2013 BENJI ACOSTA DDS 78 2.0 DISTURBANCE OF SKIN SENSATION 07/01/2013 BENJI ACOSTA DDS 62 5.8 OTHER SPECIFIED SYMPTOMS ASSOCIATED WITH FEMALE GENITAL ORGANS 07/01/2013 BENJI ACOSTA DDS 62 6.9 UNSPECIFIED DISORDERS OF MENSTRUATION AND OTHER ABNORMAL BLEEDING FROM FEMALE GENITAL TRACT 07/01/2013 BENJI ACOSTA DDS 78 2.0 DISTURBANCE OF SKIN SENSATION 07/01/2013 SABIHA MAST MD 625.8 OTHER SPECIFIED SYMPTOMS ASSOCIATED WITH FEMALE GENITAL ORGANS 07/01/2013 SABIHA MAST MD 626.9 UNSPECIFIED DISORDERS OF MENSTRUATION AND OTHER ABNORMAL BLEEDING FROM FEMALE GENITAL TRACT 07/01/2013 SABIHA MAST MD 782.0 DISTURBANCE OF SKIN SENSATION 07/01/2013 ELLIE DE [place] T[place] KIKA K 625.8 OTHER SPECIFIED SYMPTOMS ASSOCIATED WITH FEMALE GENITAL ORGANS 07/01/2013 ELLIE DE [place] TORRE KIKA K 626.9 UNSPECIFIED DISORDERS OF MENSTRUATION AND OTHER ABNORMAL BLEEDING FROM FEMALE GENITAL TRACT 07/01/2013 ELLIE DE [place] KIKA K 782.0 DISTURBANCE OF SKIN SENSATION 07/01/2013 ROSA JUNIOR APRNA J 625.8 OTHER SPECIFIED SYMPTOMS ASSOCIATED WITH FEMALE GENITA L ORGANS 07/01/2013 SANDI LASSITER ITZ J 626.9 UNSPECIFIED DISORDERS OF MENSTRUATION AN D OTHER ABNORMAL BLEEDING FROM FEMALE GENITAL TRACT 07/01/2013 SADNI LASSITER, ITZ J 782.0 DISTURBANCE OF SKIN SENSATION 07/01/2013 SANDI LASSITER, ITZ J 625.8 OTHER SPECIFIED SYMPTOMS ASSOCIATED WITH FEMALE GENITA L ORGANS 07/01/2013 SANDI LASSITER, ITZ J 626.9 UNSPECIFIED DISORDERS OF MENSTRUATION AN D OTHER ABNORMAL BLEEDING FROM FEMALE GENITAL TRACT 07/01/2013 SANDI LYNNN, ITZ J 782.0 DISTURBANCE OF SKIN SENSATION 07/01/2013 SANDI LASSITER ITZ J 625.8 OTHER SPECIFIED SYMPTOMS ASSOCIATED WITH FEMALE GENITA L ORGANS 07/01/2013 SANDI LYNNN, ITZ J 626.9 UNSPECIFIED DISORDERS OF MENSTRUATION AN D OTHER ABNORMAL BLEEDING FROM FEMALE GENITAL TRACT 07/01/2013 SANDI LASSITER, ITZ J 782.0 DISTURBANCE OF SKIN SENSATION 07/01/2013 SANDI LASSITER ITZ J 625.8 OTHER SPECIFIED SYMPTOMS ASSOCIATED WITH FEMALE GENITA L ORGANS 07/01/2013 SANDI LASSITER ITZ J 626.9 UNSPECIFIED DISORDERS OF MENSTRUATION AN D OTHER ABNORMAL BLEEDING FROM FEMALE GENITAL TRACT 07/01/2013 SANDI LASSITER ITZ J 782.0 DISTURBANCE OF SKIN SENSATION 07/01/2013 KIKA ARGUETA DO 625.8 OTHER SPECIFIED SYMPTOMS ASSOCIATED WITH FEMALE GENITAL ORGANS 07/01/2013 KIKA ARGUETA DO 626.9 UNSPECIFIED DISORDERS OF MENSTRUATION AND OTHER ABNORMAL BLEEDING FROM FEMALE GENITAL TRACT 07/01/2013 KIKA ARGUETA DO 782.0 DISTURBANCE OF SKIN SENSATION 07/15/2013 REYNALDO VIEIRA APRN 35 4.0 CARPAL TUNNEL SYNDROME 07/15/2013 [facility], ARASH R 354.0 CARPAL TUNNEL SYNDROME 07/15/2013 REYNALDO VIEIRA APRN 35 4.0 CARPAL TUNNEL SYNDROME 07/15/2013 KIKA ARGUETA DO K 354.0 CARPAL TUNNEL SYNDROME 07/15/2013 [facility], ARASH R 354.0 CARPAL TUNNEL SYNDROME 07/15/2013 MARLENE CABRERA APRN 354.0 CARPAL TUNNEL SYNDROME 07/15/2013 [facility], ARASH R 354.0 CARPAL TUNNEL SYNDROME 07/15/2013 ITZ JUNIOR APRN 354.0 CARPAL TUNNEL SYNDROME 07/15/2013 ITZ JUNIOR APRN 354.0 CARPAL TUNNEL SYNDROME 07/15/2013 BRODY ARAYA MD 354 .0 CARPAL TUNNEL SYNDROME 07/15/2013 BRODY ARAYA MD 354 .0 CARPAL TUNNEL SYNDROME 07/15/2013 ITZ JUNIOR APRN 354.0 CARPAL TUNNEL SYNDROME 07/15/2013 KARLA MCKEONS, BENJI 35 4.0 CARPAL TUNNEL SYNDROME 07/15/2013 KARLA MCKEONS, BENJI 35 4.0 CARPAL TUNNEL SYNDROME 07/15/2013 SABIHA MAST MD 354.0 CARPAL TUNNEL SYNDROME 07/15/2013 KIKA ARGUETA DO 354.0 CARPAL TUNNEL SYNDROME 07/15/2013 ROSA JUNIOR APRNA J 354.0 CARPAL TUNNEL SYNDROME 07/15/2013 ROSA JUNIOR APRNA Merrick 354.0 CARPAL TUNNEL SYNDROME 07/15/2013 ROSA JUNIOR APRNA J 354.0 CARPAL TUNNEL SYNDROME 07/15/2013 ROSA JUNIOR APRNA J 354.0 CARPAL TUNNEL SYNDROME 07/15/2013 KIKA ARGUETA DO 354.0 CARPAL TUNNEL SYNDROME 07/21/2013 ODGERS MD, ROBI K Ot 592 .0 CALCULUS OF KIDNEY 07/21/2013 ROBI MAGAÑA MD Ot 596.51 HYPERTONICITY OF BLADDER 07/21/2013 ROBI MAGAÑA MD Ot 788.30 UNSPECIFIED URINARY INCONTINENCE 07/21/2013 ROBI MAGAÑA MD Ot 789.02 ABDOMINAL PAIN, LEFT UPPER QUADRANT 07/21/2013 ROBI MAGAÑA MD Ot 791 .9 ABN URINE FINDINGS NEC 07/21/2013 ROBI MAGAÑA MD Ot V58.69 OTH MED,LT,CURRENT USE 09/08/2013 BRO ARGUETA DOA K 307.81 TENSION HEADACHE 09/08/2013 [facility], ARASH R 307.81 TENSION HEADACHE 09/08/2013 MARLENE CABRERA APRN 307.81 TENSION HEADACHE 09/08/2013 [facility], ARASH R 307.81 TENSION HEADACHE 09/08/2013 ITZ JUNIOR APRN 307.81 TENSION HEADACHE 09/08/2013 ITZ JUNIOR APRN 307.81 TENSION HEADACHE 09/08/2013 BRODY ARAYA MD 307 .81 TENSION HEADACHE 09/08/2013 BRODY ARAYA MD 307 .81 TENSION HEADACHE 09/08/2013 ROSA JUNIOR APRNA J 307.81 TENSION HEADACHE 09/08/2013 BENJI ACOSTA DDS 307.81 TENSION HEADACHE 09/08/2013 KARLA MCKEONS, BENJI 307.81 TENSION HEADACHE 09/08/2013 KEZIA SAUCEDO, SABIHA 307.8 1 TENSION HEADACHE 09/08/2013 KIKA ARGUETA DO 307.81 TENSION HEADACHE 09/08/2013 ITZ JUNIOR APRN 307.81 TENSION HEADACHE 09/08/2013 ITZ JUNIOR APRN 307.81 TENSION HEADACHE 09/08/2013 ROSA JUNIOR APRNA J 307.81 TENSION HEADACHE 09/08/2013 ROSA JUNIOR APRNA J 307.81 TENSION HEADACHE 09/08/2013 BRO ARGUETA DOA K 307.81 TENSION HEADACHE 09/25/2013 ZOFIA MORA DO Ot 558.9 NONINF GASTROENTERIT NEC 09/25/2013 ZOFIA MORA DO Ot 787.01 NAUSEA WITH VOMITING 10/25/2013 ZOFIA MORA DO Ot 112.0 THRUSH 10/25/2013 MORGAN DO, ZOFIA K Ot 345.10 GEN CONVULS 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 10/25/2013 MORGAN DO, ZOFIA K Ot 599.0 URIN TRACT INFECTION NOS 12/14/2013 MORGAN DO, ZOFIA K Ot 311 DEPRESSIVE DISORDER NEC 12/14/2013 MORGAN DO, ZOFIA K Ot 345.90 EPILEPSY UNSPEC W/O MENTION INTRACTABLE 12/14/2013 MORGAN DO, ZOFIA K Ot 530.81 ESOPHAGEAL REFLUX 12/14/2013 MORGAN DO, ZOFIA K Ot 591 HYDRONEPHROSIS 12/14/2013 MORGAN DO, ZOFIA K Ot 592.1 CALCULUS OF URETER 12/14/2013 MORGAN DO, ZOFIA K Ot 599.0 URIN TRACT INFECTION NOS 12/14/2013 MORGAN DO, ZOFIA K Ot 599.70 HEMATURIA, UNSPECIFIED 12/14/2013 MORGAN DO, ZOFIA K Ot 729.1 MYALGIA AND MYOSITIS NOS 12/18/2013 BRODY ARAYA MD N Ot 272 .4 HYPERLIPIDEMIA NEC/NOS 12/18/2013 BRODY ARAYA MD Ot 296.90 UNSPECIFIED EPISODIC MOOD DISORDER 12/18/2013 BRODY ARAYA MD Ot 577 .0 ACUTE PANCREATITIS 12/18/2013 BRODY ARAYA MD Ot 592 .0 CALCULUS OF KIDNEY 12/18/2013 BRODY ARAYA MD Ot 729 .1 MYALGIA AND MYOSITIS NOS 12/18/2013 BRODY ARAYA MD Ot 782 .2 LOCAL SUPRFICIAL SWELLNG 12/18/2013 BRODY ARAYA MD Ot 790.29 OTHER ABNORMAL GLUCOSE 12/22/2013 BRODY ARAYA MD 577 .0 ACUTE PANCREATITIS 12/22/2013 BRODY ARAYA MD 577 .0 ACUTE PANCREATITIS 12/22/2013 ITZ JUNIOR APRN 577.0 ACUTE PANCREATITIS 12/22/2013 BENJI ACOSTA DDS 7.0 ACUTE PANCREATITIS 12/22/2013 BENJI ACOSTA DDS 7.0 ACUTE PANCREATITIS 12/22/2013 SABIHA MAST MD 577.0 ACUTE PANCREATITIS 12/22/2013 ARGUETA DO, KIKA K 577.0 ACUTE PANCREATITIS 12/22/2013 ITZ JUNIOR APRN J 577.0 ACUTE PANCREATITIS 12/22/2013 SANDI FIGURE MODELITZ Linda J 577.0 ACUTE PANCREATITIS 12/22/2013 ITZ JUNIOR APRN J 577.0 ACUTE PANCREATITIS 12/22/2013 ITZ JUNIOR APRN J 577.0 ACUTE PANCREATITIS 12/22/2013 KIKA ARGUETA DO K 577.0 ACUTE PANCREATITIS 01/02/2014 LAURA FINCH FIGURE MODEL Ot 311 DEPRESSIVE DISORDER NEC 01/02/2014 LAURA FINCH FIGURE MODEL Ot 345.90 EPILEPSY UNSPEC W/O MENTION INTRACTABLE 01/02/2014 LAURA FINCH FIGURE MODEL Ot 346.90 MIGRAINE UNSPECIFIED W/O INTRACT MGRN W/ 01/02/2014 LAURA FINCH FIGURE MODEL Ot 493.90 ASTHMA, UNSPECIFIED 01/02/2014 LAURA FINCH APRN Ot 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 01/02/2014 LAURA FINCH FIGURE MODEL Ot 592 .0 CALCULUS OF KIDNEY 01/02/2014 LAURA FINCH FIGURE MODEL Ot 599 .0 URIN TRACT INFECTION NOS 01/02/2014 LAURA FINCH FIGURE MODEL Ot 729 .1 MYALGIA AND MYOSITIS NOS 01/02/2014 LAURA FINCH FIGURE MODEL Ot 789.09 ABDOMINAL PAIN, OTHER SPECIFIED SITE 01/02/2014 LAURA FINCH FIGURE MODEL Ot 793 .4 NOSP (ABN) FINDINGS ON RADIOLOGICAL OT 01/10/2014 MILADYS SAUCEDO, MARISA Gant Ot 592.0 CALCULUS OF KIDNEY 01/12/2014 HAHN NETTIE DE [place] TORRE Ot 706. 2 SEBACEOUS CYST 01/21/2014 MAYRA QUINONES Ot 110.5 DERMATOPHYTOSIS OF BODY 01/21/2014 MAYRA QUINONES Ot 782.1 NONSPECIF SKIN ERUPT NEC 02/03/2014 SABIHA MAST MD Ot 276.51 DEHYDRATION 02/03/2014 SABIHA MAST MD Ot 276.52 HYPOVOLEMIA 02/03/2014 SABIHA MAST MD Ot 296.80 BIPOLAR DISORDER, UNSPECIFIED 02/03/2014 SABIHA MAST MD Ot 309.81 POSTTRAUMATIC STRESS DISORDER 02/03/2014 SABIHA MAST MD Ot 327.23 OBSTRUCTIVE SLEEP APNEA (ADULT) (PEDIATR 02/03/2014 KEZIA SAUCEDO, SABIHA Glaser Ot 345.90 EPILEPSY UNSPEC W/O MENTION INTRACTABLE 02/03/2014 SABIHA MAST MD Ot 346.90 MIGRAINE UNSPECIFIED W/O INTRACT MGRN W/ 02/03/2014 SABIHA MAST MD Ot 493.90 ASTHMA, UNSPECIFIED 02/03/2014 SABIHA MAST MD Ot 584 .9 ACUTE RENAL FAILURE, UNSPECIFIED 02/03/2014 SABIHA MAST MD Ot 592 .0 CALCULUS OF KIDNEY 02/03/2014 SABIHA MAST MD Ot 724 .5 BACKACHE NOS 02/03/2014 SABIHA MAST MD Ot 729 .1 MYALGIA AND MYOSITIS NOS 02/03/2014 SABIHA MAST MD Ot 783 .0 ANOREXIA 02/03/2014 SABIHA MAST MD Ot 785 .0 TACHYCARDIA NOS 02/03/2014 SABIHA MAST MD Ot 787.02 NAUSEA ALONE 02/03/2014 SABIHA MAST MD Ot 787.91 DIARRHEA 02/03/2014 SABIHA MAST MD Ot 995.94 SIRS DUE TO NONINFECTIOUS PROCESS W ACUT 02/03/2014 SABIHA MAST MD Ot V10.44 HX-FEMALE GENIT MALG NEC 02/03/2014 SABIHA MAST MD Ot V12.79 PERSONAL HISTORY OTH SPEC DIGESTIVE SYST 02/03/2014 SABIHA MAST MD Ot V58.69 OTH MED,LT,CURRENT USE 02/15/2014 MILADYS SAUCEDO, MARISA Gant Ot 592.0 CALCULUS OF KIDNEY 02/18/2014 MORGAN DE [place] ZOFIA K Ot 338.18 OTHER ACUTE POSTOPERATIVE PAIN 02/18/2014 MORGAN DE [place], ZOFIA K Ot 599.70 HEMATURIA, UNSPECIFIED 02/18/2014 MORGAN DE [place] ZOFIA K Ot 998.11 HEMOR COMPLIC A PROCEDURE 03/02/2014 LAURA FINCH FIGURE MODEL Ot 311 DEPRESSIVE DISORDER NEC 03/02/2014 LAURA FINCH APRN Ot 599 .0 URIN TRACT INFECTION NOS 03/02/2014 LAURA FINCH APRN Ot 729 .1 MYALGIA AND MYOSITIS NOS 03/02/2014 LAURA FINCH FIGURE MODEL Ot 787.01 NAUSEA WITH VOMITING 03/14/2014 KEZIA SAUCEDO, SABIHA V58.6 9 HIGH RISK MEDICATION 03/14/2014 ARGUETA DO KIKA K V58.69 HIGH RISK MEDICATION 03/14/2014 SANDI FIGURE MODEL, ITZ J V58.69 HIGH RISK MEDICATION 03/14/2014 SANDI FIGURE MODEL, ITZ J V58.69 HIGH RISK MEDICATION 03/14/2014 SANDI FIGURE MODEL, TIZ J V58.69 HIGH RISK MEDICATION 03/14/2014 SANDI FIGURE MODEL, ITZ J V58.69 HIGH RISK MEDICATION 03/14/2014 ARGUETA DO, KIKA K V58.69 HIGH RISK MEDICATION 03/24/2014 ARCHANA SAUCEDO, ROBI Hastings Ot 784 .0 HEADACHE 04/05/2014 LUCIANO SAUCEDO, ZABRINA Cha Ot 784.0 HEADACHE 04/11/2014 LUCIANO SAUCEDO, ZABRINA Cha Ot 780.39 OTHER CONVULSIONS 04/11/2014 ZABRINA WOLF MD Ot 784.0 HEADACHE 04/24/2014 MILADYS SAUCEDO, MARISA Gant Ot 592.9 04/24/2014 BRODY ARAYA MD Ot 577 .0 05/10/2014 MAYRA QUINONES Ot 599.0 URIN TRACT INFECTION NOS 05/10/2014 MAYRA QUINONES Ot 787.01 NAUSEA WITH VOMITING 05/10/2014 MAYRA QUINONES Ot 787.91 DIARRHEA 05/12/2014 YASSINE KNOX COLLAR BASTER Ot 611.72 05/12/2014 ROMMEL MCMILLAN APRN Ot 611.71 05/12/2014 MARISA HOOK MD Ot 592.0 05/12/2014 MARISA HOOK MD Ot 789.0 0 05/12/2014 MARISA HOOK MD Ot 592.9 05/12/2014 MARISA HOOK MD Ot 592.0 05/12/2014 MARISA HOOK MD A Ot V72.8 4 05/12/2014 MARSHAL ASUCEDO, BRODY Linda Ot 577 .0 05/12/2014 NETTIE HAHN DO Ot 782. 2 05/12/2014 NETTIE HAHN DO Ot V72. 84 05/12/2014 MILADYS SAUCEDO, MARISA Gant Ot 592.0 05/12/2014 MILADYS SAUCEDO, MARISA Gant Ot V72.8 4 05/12/2014 MILADYS SAUCEDO, MARISA A Ot 592.0 06/20/2014 MAYRA QUINONES Ot 458.9 HYPOTENSION NOS 06/20/2014 MAYRA QUINONES Ot 465.9 ACUTE URI NOS 06/20/2014 MAYRA QUINONES Ot 599.0 URIN TRACT INFECTION NOS 06/20/2014 MAYRA QUINONES Ot 785.0 TACHYCARDIA NOS 06/23/2014 YASSINE KNOX COLLAR BASTER Ot 611.72 06/23/2014 ROMMEL MCMILLAN APRN Ot 611.71 06/23/2014 MILADYS SAUCEDO, MARISA Gant Ot 592.0 06/23/2014 MILADYS SAUCEDO, MARISA Gant Ot 789.0 0 06/23/2014 MILADYS SAUCEDO, MARISA A Ot 592.9 06/23/2014 MILADYS SAUCEDO, MARISA A Ot 592.0 06/23/2014 MILADYS SAUCEDO, MARISA A Ot V72.8 4 06/23/2014 MARSHAL SAUCEDO, BRODY Linda Ot 577 .0 06/23/2014 [place] NETTIE DE [place] TORRE Ot 782. 2 06/23/2014 [place] NETTIE [place] Ot V72. 84 06/23/2014 MILADYS SAUCEDO, MARISA Gant Ot 592.0 06/23/2014 MILADYS SAUCEDO, MARISA A Ot V72.8 4 06/23/2014 MILADYS SAUCEDO, MARISA A Ot 592.0 06/30/2014 Ot 721.3 06/30/2014 Ot [...] Ot V74.8 06/30/2014 Ot V72.84 06/30/2014 YASSINE KNOX Ot 611.72 06/30/2014 ROMMEL MCMILLAN APRN Ot 611.71 06/30/2014 MILADYS MD, MARISA A Ot 592.0 06/30/2014 MILADYS SAUCEDO, MARISA A Ot 789.0 0 06/30/2014 MILADYS SAUCEDO, MARISA A Ot 592.9 06/30/2014 MILADYS SAUCEDO, MARISA A Ot 592.0 06/30/2014 MILADYS SAUCEDO, MARISA A Ot V72.8 4 06/30/2014 MARSHAL SAUCEDO, BRODY Linda Ot 577 .0 06/30/2014 [place] NETTIE [place] Ot 782. 2 06/30/2014 [facility] NETTIE [place] Ot V72. 84 06/30/2014 MILADYS SAUCEDO, MARISA A Ot 592.0 06/30/2014 MILADYS SAUCEDO, MARISA A Ot V72.8 4 06/30/2014 MILADYS SAUCEDO, MARISA A Ot 592.0 06/30/2014 YASSINE KNOX Ot 611.72 06/30/2014 ROMMEL MCMILLAN APRN Ot 611.71 06/30/2014 MILADYS SAUCEDO, MARISA A Ot 592.0 06/30/2014 MILADYS SAUCEDO, MARISA A Ot 789.0 0 06/30/2014 MILADYS SAUCEDO, MARISA A Ot 592.9 06/30/2014 MILADYS SAUCEDO, MARISA A Ot 592.0 06/30/2014 MILADYS SAUCEDO, MARISA A Ot V72.8 4 06/30/2014 MARSHAL SAUCEDO, BRODY Linda Ot 577 .0 06/30/2014 [place] NETTIE [place] Ot 782. 2 06/30/2014 [place] NETTIE [place] Ot V72. 84 06/30/2014 MILADYS SAUCEDO, MARISA A Ot 592.0 06/30/2014 MILADYS SAUCEDO, MARISA A Ot V72.8 4 06/30/2014 MILADYS SAUCEDO, MARISA A Ot 592.0 07/01/2014 YASSINE KNOX Ot 611.72 07/01/2014 ROMMEL MCMILLAN APRN Ot 611.71 07/01/2014 MILADYS SAUCEDO, MARISA A Ot 592.0 07/01/2014 MILADYS SAUCEDO, MARISA A Ot 789.0 0 07/01/2014 MILADYS SAUCEDO, MARISA A Ot 592.9 07/01/2014 MILADYS SAUCEDO, MARISA A Ot 592.0 07/01/2014 MILADYS SAUCEDO, MARISA A Ot V72.8 4 07/01/2014 MARSHAL SAUCEDO, BRODY Linda Ot 577 .0 07/01/2014 [place] NETTIE [place] TORRE Ot 782. 2 07/01/2014 NETTIE HAHN DO Ot V72. 84 07/01/2014 MILADYS SAUCEDO, MARISA A Ot 592.0 07/01/2014 MILADYS SAUCEDO, MARISA A Ot V72.8 4 07/01/2014 MILADYS SAUCEDO, MARISA A Ot 592.0 07/01/2014 REYNALDO LONDONO DO Ot 788.1 DYSURIA 07/01/2014 REYNALDO LONDONO DO Ot 789.09 ABDOMINAL PAIN, OTHER SPECIFIED SITE 07/03/2014 YASSINE KNOX COLLAR BASTER Ot 611.72 07/03/2014 ROMMEL MCMILLAN APRN Ot 611.71 07/03/2014 MILADYS SAUCEDO, MARISA A Ot 592.0 07/03/2014 MILADYS SAUCEDO, MARISA A Ot 789.0 0 07/03/2014 MILADYS SAUCEDO, MARISA A Ot 592.9 07/03/2014 MILADYS SAUCEDO, MARISA A Ot 592.0 07/03/2014 MILADYS SAUCEDO, MARISA A Ot V72.8 4 07/03/2014 MARSHAL SAUCEDO, BRODY Linda Ot 577 .0 07/03/2014 HAHNNETTIE MAURICIO DO Ot 782. 2 07/03/2014 [place] NETTIE [place] TOR[place] Ot V72. 84 07/03/2014 MILADYS SAUCEDO, MARISA A Ot 592.0 07/03/2014 MILADYS SAUCEDO, MARISA A Ot V72.8 4 07/03/2014 MILADYS SAUCEDO, MARISA A Ot 592.0 07/03/2014 MILADYS SAUCEDO, MARISA A Ot 592.0 07/13/2014 MILADYS SAUCEDO, MARISA A Ot 592.0 08/08/2014 Ot 595.1 CHR INTERSTIT CYSTITIS 08/08/2014 Ot 625.9 FEM GENITAL SYMPTOMS NOS 08/08/2014 Ot V58.69 OTH MED,LT,CURRENT USE 09/03/2014 YASSINE KNOX COLLAR BASTER Ot 611.72 09/03/2014 ROMMEL MCMILLAN FIGURE MODEL Ot 611.71 09/03/2014 MILADYS SAUCEDO, MARIAS Gant Ot 592.0 09/03/2014 MILADYS SAUCEDO, MARISA A Ot 789.0 0 09/03/2014 MILADYS SAUCEDO, MARISA A Ot 592.9 09/03/2014 MILADYS SAUCEDO, MARISA A Ot 592.0 09/03/2014 MILADYS SAUCEDO, MARISA A Ot V72.8 4 09/03/2014 MARSHAL SAUCEDO, BRODY Linda Ot 577 .0 09/03/2014 [place] NETTIE [place] Ot 782. 2 09/03/2014 [place] NETTIE [place] Ot V72. 84 09/03/2014 MILADYS SAUCEDO, MARISA Gant Ot 592.0 09/03/2014 MILADYS SAUCEDO, MARISA Gant Ot V72.8 4 09/03/2014 MILADYS SAUCEDO, MARISA A Ot 592.0 09/03/2014 Ot 595.9 09/03/2014 Ot V72.84 09/03/2014 LAURA FINCH APRN Ot 518 .0 PULMONARY COLLAPSE 09/03/2014 LAURA FINCH APRN Ot 786.05 SHORTNESS OF BREATH 09/03/2014 LAURA FINCH APRN Ot 786.52 PAINFUL RESPIRATION 09/12/2014 KIKA ARGUETA DO V81.1 HYPERTENSION SCREENING 09/15/2014 ANGEL MATA MD Ot 493.90 ASTHMA, UNSPECIFIED 09/15/2014 ANGEL MATA MD Ot 599.0 URIN TRACT INFECTION NOS 09/15/2014 ANGEL MATA MD Ot 786.52 PAINFUL RESPIRATION 09/15/2014 ANGEL MATA MD Ot V58.69 OTH MED,LT,CURRENT USE 09/20/2014 Ot 433.10 09/20/2014 Ot [...] V72.84 09/20/2014 Ot V74.8 10/13/2014 LAURA FINCH FIGURE MODEL Ot 592 .0 CALCULUS OF KIDNEY 10/13/2014 LAURA FINCH FIGURE MODEL Ot 599 .0 URIN TRACT INFECTION NOS 10/13/2014 LAURA FINCH FIGURE MODEL Ot 724 .1 PAIN IN THORACIC SPINE 10/26/2014 Ot 592.0 10/26/2014 Ot 599.0 10/26/2014 MAYRA QUINONES Ot 401.9 HYPERTENSION NOS 10/26/2014 MAYRA QUINONES Ot 592.0 CALCULUS OF KIDNEY 10/26/2014 MAYRA QUINONES Ot 599.0 URIN TRACT INFECTION NOS 10/26/2014 MAYRA QUINONES Ot 729.1 MYALGIA AND MYOSITIS NOS 10/26/2014 MAYRA QUINONES Ot 787.91 DIARRHEA 10/26/2014 MAYRA QUINONES Ot 792.1 ABN FIND-STOOL CONTENTS 11/03/2014 MILADYS SAUCEDO, MARISA Gant Ot 592.0 11/03/2014 MARISA HOOK MD Ot V72.8 4 11/03/2014 MARISA HOOK MD Ot 592.0 11/03/2014 MARISA HOOK MD Ot V72.8 4 11/07/2014 Ot 592.0 11/07/2014 Ot 599.0 11/07/2014 MILADYS SAUCEDO, MARISA Gant Ot 592.0 CALCULUS OF KIDNEY 11/22/2014 MARISA HOOK MD Ot 592.0 11/27/2014 LAURA FINCH FIGURE MODEL Ot 592 .1 CALCULUS OF URETER 11/27/2014 LAURA FINCH FIGURE MODEL Ot 789.00 ABDOMINAL PAIN, UNSPECIFIED SITE 12/27/2014 MILADYS SAUCEDO, MARISA Gant Ot 592.0 12/27/2014 MILADYS SAUCEDO, MARISA A Ot V45.8 9 01/19/2015 MILADYS SAUCEDO, MARISA Gant Ot 592.0 01/19/2015 MILADYS SAUCEDO, MARISA Gant Ot 592.0 01/19/2015 MILADYS SAUCEDO, MARISA A Ot V45.8 9 01/25/2015 MILADYS SAUCEDO, MARISA A Ot 592.0 01/25/2015 MILADYS SAUCEDO, MARISA Gant Ot 592.0 01/25/2015 MILADYS SAUCEDO, MARISA Gant Ot V45.8 9 02/09/2015 ZOFIA MORA DO Ot 599.0 URIN TRACT INFECTION NOS 02/09/2015 ZOFIA MORA DO Ot 722.11 THORACIC DISC DISPLACMNT 02/09/2015 ZOFIA MORA DO Ot 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 02/09/2015 ZOFIA MORA DO Ot 722.52 LUMB/LUMBOSAC DISC DEGEN 02/09/2015 ZOFIA MORA DO Ot 724.1 PAIN IN THORACIC SPINE 03/14/2015 KEZIA SAUCEDO, SABIHA Glaser Ot 722.51 04/09/2015 LAURA FINCH FIGURE MODEL Ot G89.29 OTHER CHRONIC PAIN 04/09/2015 LAURA FINCH FIGURE MODEL Ot K76 .0 FATTY (CHANGE OF) LIVER, NOT ELSEWHERE C 04/09/2015 LAURA FINCH FIGURE MODEL Ot M54.12 RADICULOPATHY, CERVICAL REGION 04/09/2015 YASSINE KNOX COLLAR BASTER Ot 611.72 04/09/2015 ROMMEL MCMILLAN FIGURE MODEL Ot 611.71 04/09/2015 MILADYS SAUCEDO, MARISA Gant Ot 592.0 04/09/2015 MILADYS SAUCEDO, MARISA Gant Ot 789.0 0 04/09/2015 MILADYS SAUCEDO, MARISA Gant Ot 592.9 04/09/2015 MILADYS SAUCEDO, MARISA Gant Ot 592.0 04/09/2015 MILADYS SAUCEDO, MARISA Gant Ot V72.8 4 04/09/2015 MARSHAL SAUCEDO, BRODY Alexei Ot 577 .0 04/09/2015 NETTIE HAHN DO Ot 782. 2 04/09/2015 NETTIE HAHN DO Ot V72. 84 04/09/2015 MILADYS SAUCEDO, MARISA A Ot 592.0 04/09/2015 MILADYS SAUCEDO, MARISA A Ot V72.8 4 04/09/2015 MILADYS SAUCEDO, MARISA A Ot 592.0 04/09/2015 Ot 595.9 04/09/2015 Ot V72.84 04/09/2015 MILADYS SAUCEDO, MARISA A Ot 592.0 04/09/2015 MILADYS SAUCEDO, MARISA A Ot 592.0 04/09/2015 MILADYS SAUCEDO, MARISA A Ot V72.8 4 04/09/2015 MILADYS SAUCEDO, MARISA A Ot 592.0 04/09/2015 MILADYS SAUCEDO, MARISA Gant Ot V45.8 9 04/09/2015 KEZIA SAUCEDO, SABIHA Glaser Ot 722.51 04/09/2015 Ot M54.9 04/09/2015 Ot M79.89 04/11/2015 Ot M54.9 04/11/2015 Ot M79.89 04/20/2015 Ot M54.9 04/20/2015 Ot M79.89 04/20/2015 Ot M54.9 04/20/2015 Ot M79.89 04/20/2015 KEZIA SAUCEDO, SABIHA Glaser Ot 722.51 05/01/2015 KEZIA SAUCEDO, SABIHA Glaser Ot 722.51 05/01/2015 Ot M54.9 05/01/2015 Ot M79.89 08/03/2015 YASSINE KNOX Ot 611.72 08/03/2015 ROMMEL MCMILLAN APRN Ot 611.71 08/03/2015 MILADYS SAUCEDO, MARISA Gant Ot 592.0 08/03/2015 MILADYS SAUCEDO, MARISA Gant Ot 789.0 0 08/03/2015 MILADYS SAUCEDO, MARISA Gant Ot 592.9 08/03/2015 MILADYS SAUCEDO, MARISA Gant Ot 592.0 08/03/2015 MILADYS SAUCEDO, MARISA A Ot V72.8 4 08/03/2015 MARSHAL SAUCEDO, BRODY N Ot 577 .0 08/03/2015 NETTIE HAHN DO Ot 782. 2 08/03/2015 NETTIE HAHN DO Ot V72. 84 08/03/2015 MILADYS SAUCEDO, MARISA A Ot 592.0 08/03/2015 MILADYS SAUCEDO, MARISA A Ot V72.8 4 08/03/2015 MILADYS SAUCEDO, MARISA A Ot 592.0 08/03/2015 Ot 595.9 08/03/2015 Ot V72.84 08/03/2015 MILADYS SAUCEDO, MARISA A Ot 592.0 08/03/2015 MILADYS SAUCEDO, MARISA A Ot 592.0 08/03/2015 MILADYS SAUCEDO, MARISA A Ot V72.8 4 08/03/2015 MILADYS SAUCEDO, MARISA A Ot 592.0 08/03/2015 MILADYS SAUCEDO, MARISA A Ot V45.8 9 08/03/2015 KEZIA SAUCEDO, SABIHA Glaser Ot 722.51 [...] DO Ot M54.5 LOW BACK PAIN 09/21/2015 ZOFIA MORA DO Ot N39.0 URINARY TRACT INFECTION, SITE NOT SPECIF 09/30/2015 ZOFIA MORA DO Ot 311 DEPRESSIVE DISORDER NEC 09/30/2015 ZOFIA MORA DO Ot 345.90 EPILEPSY UNSPEC W/O MENTION INTRACTABLE 09/30/2015 ZOFIA MORA DO Ot 530.81 ESOPHAGEAL REFLUX 09/30/2015 ZOFIA MORA DO Ot 591 HYDRONEPHROSIS 09/30/2015 MORGAN DO, ZOFIA K Ot 592.1 CALCULUS OF URETER 09/30/2015 MORGAN DO, ZOFIA K Ot 599.0 URIN TRACT INFECTION NOS 09/30/2015 MORGAN DO, ZOFIA K Ot 599.70 HEMATURIA, UNSPECIFIED 09/30/2015 MORGAN DO, ZOFIA K Ot 729.1 MYALGIA AND MYOSITIS NOS 10/13/2015 KARYN KNOXRADHA Sin COLLAR BASTER Ot 611.72 LUMP OR MASS IN BREAST 10/13/2015 ROMMEL MCMILLAN FIGURE MODEL Ot 611.71 MASTODYNIA 10/13/2015 MARISA HOOK MD Ot 592.0 CALCULUS OF KIDNEY 10/13/2015 MARISA HOOK MD Ot 789.0 0 ABDOMINAL PAIN, UNSPECIFIED SITE 10/13/2015 MARISA HOOK MD Ot 592.9 URINARY CALCULUS NOS 10/13/2015 MARISA HOOK MD Ot 592.0 CALCULUS OF KIDNEY 10/13/2015 MARISA HOOK MD Ot V72.8 4 EXAM PRE-OPERATIVE NOS 10/13/2015 MARSHAL SAUCEDO, BRODY Linda Ot 577 .0 ACUTE PANCREATITIS 10/13/2015 [place] NETTIE DE LA TORRE Ot 782. 2 LOCAL SUPRFICIAL SWELLNG 10/13/2015 NETTIE HAHN DO Ot V72. 84 EXAM PRE-OPERATIVE NOS 10/13/2015 MARISA HOOK MD Ot 592.0 CALCULUS OF KIDNEY 10/13/2015 MARISA HOOK MD Ot V72.8 4 EXAM PRE-OPERATIVE NOS 10/13/2015 MARISA HOOK MD Ot 592.0 CALCULUS OF KIDNEY 10/13/2015 Ot 595.9 CYST ITIS NOS 10/13/2015 Ot V72.84 EXA M PRE- OPERATIVE NOS 10/13/2015 MARISA HOOK MD Ot 592.0 CALCULUS OF KIDNEY 10/13/2015 MARISA HOOK MD Ot 592.0 CALCULUS OF KIDNEY 10/13/2015 MARISA HOOK MD Ot V72.8 4 EXAM PRE-OPERATIVE NOS 10/13/2015 MARISA HOOK MD Ot 592.0 CALCULUS OF KIDNEY 10/13/2015 MARISA HOOK MD Ot V45.8 9 POSTSURGICAL STATES NEC 10/13/2015 KEZIA SAUCEDO, SABIHA Glaser Ot 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 0 URINARY TRACT INFECTION, SITE NOT SPECIF 10/15/2015 MAGGIE PETER MD Ot N39. 0 URINARY TRACT INFECTION, SITE NOT SPECIF 10/22/2015 LAURA FINCH FIGURE MODEL Ot G89.29 OTHER CHRONIC PAIN 10/22/2015 LAURA FINCH FIGURE MODEL Ot K42 .9 UMBILICAL HERNIA WITHOUT OBSTRUCTION OR 10/22/2015 LAURA FINCH FIGURE MODEL Ot M54 .5 LOW BACK PAIN 10/22/2015 LAURA FINCH FIGURE MODEL Ot N20 .0 CALCULUS OF KIDNEY 10/24/2015 LAURA FINCH FIGURE MODEL Ot G89.29 OTHER CHRONIC PAIN 10/24/2015 LAURA FINCH FIGURE MODEL Ot K42 .9 UMBILICAL HERNIA WITHOUT OBSTRUCTION OR 10/24/2015 LAURA FINCH FIGURE MODEL Ot M54 .5 LOW BACK PAIN 10/24/2015 LAURA FINCH FIGURE MODEL Ot N20 .0 CALCULUS OF KIDNEY 10/24/2015 YASSINE KNXO COLLAR BASTER Ot 611.72 LUMP OR MASS IN BREAST 10/24/2015 ROMMEL MCMILLAN FIGURE MODEL Ot 611.71 MASTODYNIA 10/24/2015 MARISA HOOK MD Ot 592.0 CALCULUS OF KIDNEY 10/24/2015 MARISA HOOK MD Ot 789.0 0 ABDOMINAL PAIN, UNSPECIFIED SITE 10/24/2015 MARISA HOOK MD Ot 592.9 URINARY CALCULUS NOS 10/24/2015 MARISA HOOK MD Ot 592.0 CALCULUS OF KIDNEY 10/24/2015 MARISA HOOK MD Ot V72.8 4 EXAM PRE-OPERATIVE NOS 10/24/2015 MARSHAL SAUCEDO, BRODY Linda Ot 577 .0 ACUTE PANCREATITIS 10/24/2015 NETTIE HAHN DO Ot 782. 2 LOCAL SUPRFICIAL SWELLNG 10/24/2015 NETTIE HAHN DO Ot V72. 84 EXAM PRE-OPERATIVE NOS 10/24/2015 MILADYS SAUCEDO, MARISA Gant Ot 592.0 CALCULUS OF KIDNEY 10/24/2015 MILADYS SAUCEDO, MARISA Gant Ot V72.8 4 EXAM PRE-OPERATIVE NOS 10/24/2015 MILADYS SAUCEDO, MARISA Gant Ot 592.0 CALCULUS OF KIDNEY 10/24/2015 Ot 595.9 CYST ITIS NOS 10/24/2015 Ot V72.84 EXA M PRE- OPERATIVE NOS 10/24/2015 MILADYS SAUCEDO, MARISA Gant Ot 592.0 CALCULUS OF KIDNEY 10/24/2015 MILADYS SAUCEDO, MARISA Gant Ot 592.0 CALCULUS OF KIDNEY 10/24/2015 MARISA HOOK MD Ot V72.8 4 EXAM PRE-OPERATIVE NOS 10/24/2015 MILADYS SAUCEDO, MARISA Gant Ot 592.0 CALCULUS OF KIDNEY 10/24/2015 MILADYS SAUCEDO, MARISA Gant Ot V45.8 9 POSTSURGICAL STATES NEC 10/24/2015 SABIHA MAST MD Ot 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 10/24/2015 Ot M54.9 DORS ALGIA, UNSPECIFIED 10/24/2015 Ot M79.89 OTH ER SPECIFIED SOFT TISSUE DISORDERS 10/24/2015 SABIHA MAST MD Ot Z12.31 ENCNTR SCREEN MAMMOGRAM FOR MALIGNANT NE 10/24/2015 Ot R92.8 OTH ABN AND INCONCLUSIVE FINDINGS ON DX 10/31/2015 ZOFIA MORA DO Ot 311 DEPRESSIVE DISORDER NEC 10/31/2015 ZOFIA MORA DO Ot 345.90 EPILEPSY UNSPEC W/O MENTION INTRACTABLE 10/31/2015 ZOFIA MORA DO Ot 530.81 ESOPHAGEAL REFLUX 10/31/2015 ZOFIA MORA DO Ot 591 HYDRONEPHROSIS 10/31/2015 ZOFIA MORA DO Ot 592.1 CALCULUS OF URETER 10/31/2015 ZOFIA MORA DO Ot 599.0 URIN TRACT INFECTION NOS 10/31/2015 MORGAN DO, ZOFIA K Ot 599.70 HEMATURIA, UNSPECIFIED 10/31/2015 ZOFIA MORA DO K Ot 729.1 MYALGIA AND MYOSITIS NOS 12/07/2015 LUCIANO SAUCEDO, ZABRINA Cha Ot N20.2 CALCULUS OF KIDNEY WITH CALCULUS OF URET 12/07/2015 YASSINE KNOX COLLAR BASTER Ot 611.72 LUMP OR MASS IN BREAST 12/07/2015 HIPOLITO, ROMMEL A FIGURE MODEL Ot 611.71 MASTODYNIA 12/07/2015 MARISA HOOK MD Ot 592.0 CALCULUS OF KIDNEY 12/07/2015 MARISA HOOK MD Ot 789.0 0 ABDOMINAL PAIN, UNSPECIFIED SITE 12/07/2015 MARISA HOOK MD Ot 592.9 URINARY CALCULUS NOS 12/07/2015 MARISA HOOK MD Ot 592.0 CALCULUS OF KIDNEY 12/07/2015 MARISA HOOK MD Ot V72.8 4 EXAM PRE-OPERATIVE NOS 12/07/2015 MARSHAL SAUCEDO, BRODY Linda Ot 577 .0 ACUTE PANCREATITIS 12/07/2015 HAHNNETTIE MAURICIO DO Ot 782. 2 LOCAL SUPRFICIAL SWELLNG 12/07/2015 NETTIE HAHN DO Ot V72. 84 EXAM PRE-OPERATIVE NOS 12/07/2015 MARISA HOOK MD Ot 592.0 CALCULUS OF KIDNEY 12/07/2015 MARISA HOOK MD Ot V72.8 4 EXAM PRE-OPERATIVE NOS 12/07/2015 MARISA HOOK MD Ot 592.0 CALCULUS OF KIDNEY 12/07/2015 Ot 595.9 CYST ITIS NOS 12/07/2015 Ot V72.84 EXA M PRE- OPERATIVE NOS 12/07/2015 MARISA HOOK MD Ot 592.0 CALCULUS OF KIDNEY 12/07/2015 MARISA HOOK MD Ot 592.0 CALCULUS OF KIDNEY 12/07/2015 MARISA HOOK MD Ot V72.8 4 EXAM PRE-OPERATIVE NOS 12/07/2015 MARISA HOOK MD Ot 592.0 CALCULUS OF KIDNEY 12/07/2015 MARISA HOOK MD Ot V45.8 9 POSTSURGICAL STATES NEC 12/07/2015 KEZIA SAUCEDO, SABIHA Glaser Ot 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 12/07/2015 Ot M54.9 DORS ALGIA, UNSPECIFIED 12/07/2015 Ot M79.89 OTH ER SPECIFIED SOFT TISSUE DISORDERS 12/07/2015 SABIHA MAST MD Ot Z12.31 ENCNTR SCREEN MAMMOGRAM FOR MALIGNANT NE 12/07/2015 Ot R92.8 OTH ABN AND INCONCLUSIVE FINDINGS ON DX 12/07/2015 LUCIANO SAUCEDO, ZABRINA Cha Ot N20.2 CALCULUS OF KIDNEY WITH CALCULUS OF URET 12/10/2015 Ot R92.8 OTH ABN AND INCONCLUSIVE FINDINGS ON DX 12/20/2015 Ot R92.8 OTH ABN AND INCONCLUSIVE FINDINGS ON DX 01/03/2016 ROBI MAGAÑA MD Ot M54 .5 LOW BACK PAIN 01/03/2016 ROBI MAGAÑA MD Ot M62.830 MUSCLE SPASM OF BACK 01/04/2016 ROBI MAGAÑA MD Ot M54 .5 LOW BACK PAIN 01/04/2016 ROBI MAGAÑA MD Ot M62.830 MUSCLE SPASM OF BACK 01/09/2016 ROBI MAGAÑA MD Ot M54 .5 LOW BACK PAIN 01/09/2016 ROBI MAGAÑA MD [...] MYALGIA AND MYOSITIS NOS 02/01/2016 YASSINE KNOX COLLAR BASTER Ot 611.72 LUMP OR MASS IN BREAST 02/01/2016 ROMMEL MCMILLAN APRN Ot 611.71 MASTODYNIA 02/01/2016 MARISA HOOK MD Ot 592.0 CALCULUS OF KIDNEY 02/01/2016 MARISA HOOK MD Ot 789.0 0 ABDOMINAL PAIN, UNSPECIFIED SITE 02/01/2016 MARISA HOOK MD Ot 592.9 URINARY CALCULUS NOS 02/01/2016 MARISA HOOK MD Ot 592.0 CALCULUS OF KIDNEY 02/01/2016 MARISA HOOK MD Ot V72.8 4 EXAM PRE-OPERATIVE NOS 02/01/2016 MARSHAL SAUCEDO, BRODY N Ot 577 .0 ACUTE PANCREATITIS 02/01/2016 NETTIE HAHN DO Ot 782. 2 LOCAL SUPRFICIAL SWELLNG 02/01/2016 NETTIE HAHN DO Ot V72. 84 EXAM PRE-OPERATIVE NOS 02/01/2016 MARISA HOOK MD Ot 592.0 CALCULUS OF KIDNEY 02/01/2016 MARISA HOOK MD Ot V72.8 4 EXAM PRE-OPERATIVE NOS 02/01/2016 MARISA HOOK MD Ot 592.0 CALCULUS OF KIDNEY 02/01/2016 Ot 595.9 CYST ITIS NOS 02/01/2016 Ot V72.84 EXA M PRE- OPERATIVE NOS 02/01/2016 MARISA HOOK MD Ot 592.0 CALCULUS OF KIDNEY 02/01/2016 MARISA HOOK MD Ot 592.0 CALCULUS OF KIDNEY 02/01/2016 MARSIA HOOK MD Ot V72.8 4 EXAM PRE-OPERATIVE NOS 02/01/2016 MARISA HOOK MD Ot 592.0 CALCULUS OF KIDNEY 02/01/2016 MARISA HOOK MD Ot V45.8 9 POSTSURGICAL STATES NEC 02/01/2016 SABIHA MAST MD Ot 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 02/01/2016 Ot M54.9 DORS ALGIA, UNSPECIFIED 02/01/2016 Ot M79.89 OTH ER SPECIFIED SOFT TISSUE DISORDERS 02/01/2016 SABIHA MAST MD Ot Z12.31 ENCNTR SCREEN MAMMOGRAM FOR MALIGNANT NE 02/01/2016 Ot R92.8 OTH ABN AND INCONCLUSIVE FINDINGS ON DX 02/01/2016 BENJI LOMBARDO MD Ot 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, T 02/14/2016 BENJI LOMBARDO MD Ot Z79.899 OTHER [employer] SUPERVISOR (CURRENT) DRUG THERAPY 02/15/2016 BENJI LOMBARDO MD Ot 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, T 02/15/2016 BENJI LOMBARDO MD Ot Z79.899 OTHER [employer] SUPERVISOR (CURRENT) DRUG THERAPY 03/03/2016 YASSINE KNOX COLLAR BASTER Ot 611.72 LUMP OR MASS IN BREAST 03/03/2016 ROMMEL MCMILLAN FIGURE MODEL Ot 611.71 MASTODYNIA 03/03/2016 MARISA HOOK MD Ot 592.0 CALCULUS OF KIDNEY 03/03/2016 MARISA HOOK MD Ot 789.0 0 ABDOMINAL PAIN, UNSPECIFIED SITE 03/03/2016 AMRISA HOOK MD Ot 592.9 URINARY CALCULUS NOS 03/03/2016 MARISA HOOK MD Ot 592.0 CALCULUS OF KIDNEY 03/03/2016 MARISA HOOK MD Ot V72.8 4 EXAM PRE-OPERATIVE NOS 03/03/2016 MARSHAL SAUCEDO, BRODY Linda Ot 577 .0 ACUTE PANCREATITIS 03/03/2016 NETTIE HAHN DO Ot 782. 2 LOCAL SUPRFICIAL SWELLNG 03/03/2016 NETTIE HAHN DO Ot V72. 84 EXAM PRE-OPERATIVE NOS 03/03/2016 MARISA HOOK MD Ot 592.0 CALCULUS OF KIDNEY 03/03/2016 MARISA HOOK MD Ot V72.8 4 EXAM PRE-OPERATIVE NOS 03/03/2016 MARISA HOOK MD Ot 592.0 CALCULUS OF KIDNEY 03/03/2016 Ot 595.9 CYST ITIS NOS 03/03/2016 Ot V72.84 EXA M PRE- OPERATIVE NOS 03/03/2016 MARISA HOOK MD Ot 592.0 CALCULUS OF KIDNEY 03/03/2016 MILADYS SAUCEDO, MARISA Gant Ot 592.0 CALCULUS OF KIDNEY 03/03/2016 MILADYS SAUCEDO, MARISA Gant Ot V72.8 4 EXAM PRE-OPERATIVE NOS 03/03/2016 MILADYS SAUCEDO, MARISA Gant Ot 592.0 CALCULUS OF KIDNEY 03/03/2016 MILADYS SAUCEDO, MARISA Gant Ot V45.8 9 POSTSURGICAL STATES NEC 03/03/2016 KEZIA SAUCEDO, SABIHA Glaser Ot 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 03/03/2016 Ot M54.9 DORS ALGIA, UNSPECIFIED 03/03/2016 Ot M79.89 OTH ER SPECIFIED SOFT TISSUE DISORDERS 03/03/2016 KEZIA SAUCEDO, SABIHA Glaser Ot Z12.31 ENCNTR SCREEN MAMMOGRAM FOR MALIGNANT NE 03/03/2016 Ot R92.8 OTH ABN AND INCONCLUSIVE FINDINGS ON DX 03/03/2016 BENJI LOMBARDO MD Ot 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, T 03/03/2016 BENJI LOMBARDO MD Ot Z79.899 OTHER [employer] SUPERVISOR (CURRENT) DRUG THERAPY 03/11/2016 BENJI LOMBARDO MD, Ot 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, T 03/11/2016 BENJI LOMBARDO MD Ot Z79.899 OTHER [employer] SUPERVISOR (CURRENT) DRUG THERAPY 03/24/2016 ZABRINA WOLF MD Ot G40.909 EPILEPSY, UNSP, NOT INTRACTABLE, WITHOUT 03/24/2016 ZABRINA WOLF MD Ot I10 ESSENTIAL (PRIMARY) HYPERTENSION 03/24/2016 ZABRINA WOLF MD Ot Z79.899 OTHER [employer] SUPERVISOR (CURRENT) DRUG THERAPY 03/26/2016 ZABRINA WOLF MD Ot G40.909 EPILEPSY, UNSP, NOT INTRACTABLE, WITHOUT 03/26/2016 ZABRINA WOLF MD Ot I10 ESSENTIAL (PRIMARY) HYPERTENSION 03/26/2016 ZABRINA WOLF MD Ot Z79.899 OTHER CORRECTION (CURRENT) DRUG THERAPY 03/27/2016 BENJI LOMBARDO MD Ot 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, T 03/27/2016 BENJI LOMBARDO MD, Ot Z79.899 OTHER [employer] SUPERVISOR (CURRENT) DRUG THERAPY 04/16/2016 KEZIA SAUCEDO, SABIHA Glaser Ot R92 .8 OTH ABN AND INCONCLUSIVE FINDINGS ON DX 04/28/2016 KEZIA SAUCEDO, SABIHA Glaser Ot R92 .8 OTH ABN AND INCONCLUSIVE FINDINGS ON DX 05/21/2016 KEZIA SAUCEDO, SABIHA Glaser Ot R92 .8 OTH ABN AND INCONCLUSIVE FINDINGS ON DX [...] AND MYOSITIS NOS 06/07/2016 MAYRA QUINONES Ot I 10 ESSENTIAL (PRIMARY) HYPERTENSION 06/07/2016 MAYRA QUINONES Ot N20.0 CALCULUS OF KIDNEY 06/07/2016 MAYRA QUINONES Ot R30.0 DYSURIA 06/07/2016 MAYRA QUINONES Ot Z79.899 OTHER [employer] SUPERVISOR (CURRENT) DRUG THERAPY 06/09/2016 MAYRA QUINONES L Ot I 10 ESSENTIAL (PRIMARY) HYPERTENSION 06/09/2016 MAYRA QUINONES Ot N20.0 CALCULUS OF KIDNEY 06/09/2016 MAYRA QUINONES Ot R30.0 DYSURIA 06/09/2016 MAYRA QUINONES Ot Z79.899 OTHER CORRECTION (CURRENT) DRUG THERAPY 06/10/2016 MARISA HOOK MD Ot N30.1 0 INTERSTITIAL CYSTITIS (CHRONIC) WITHOUT 06/10/2016 MARISA HOOK MD Ot Z01.8 18 ENCOUNTER FOR OTHER PREPROCEDURAL EXAMIN 06/11/2016 MARISA HOOK MD Ot N30.1 0 INTERSTITIAL CYSTITIS (CHRONIC) WITHOUT 06/11/2016 MARISA HOOK MD, Ot N35.9 URETHRAL STRICTURE, UNSPECIFIED 06/11/2016 MARISA HOOK MD Ot Z11.2 ENCOUNTER FOR SCREENING FOR OTHER BACTER 06/12/2016 MARISA HOOK MD Ot N30.1 0 INTERSTITIAL CYSTITIS (CHRONIC) WITHOUT 06/12/2016 MARISA HOOK MD, Ot N35.9 URETHRAL STRICTURE, UNSPECIFIED 06/12/2016 MARISA HOOK MD, Ot Z11.2 ENCOUNTER FOR SCREENING FOR OTHER BACTER 06/13/2016 MAYRA QUINONES Ot I 10 ESSENTIAL (PRIMARY) HYPERTENSION 06/13/2016 MAYRA QUINONES Ot N20.0 CALCULUS OF KIDNEY 06/13/2016 MAYRA QUINONES Ot R30.0 DYSURIA 06/13/2016 MAYRA QUINONES Ot Z79.899 OTHER CORRECTION (CURRENT) DRUG THERAPY 06/17/2016 MARISA HOOK MD, Ot N30.1 0 INTERSTITIAL CYSTITIS (CHRONIC) WITHOUT 06/17/2016 MARISA HOOK MD, Ot N35.9 URETHRAL STRICTURE, UNSPECIFIED 06/17/2016 MARISA HOOK MD, Ot Z11.2 ENCOUNTER FOR SCREENING FOR OTHER BACTER 06/30/2016 ARMINDA FLEMING Ot 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, 07/18/2016 ARMINDA FLEMING Ot 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, 07/23/2016 ARMINDA FLEMING Ot 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, 07/30/2016 Ot 592.1 CALC ULUS OF URETER 07/30/2016 Ot 789.09 08/06/2016 ARMINDA FLEMING Ot 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, 09/29/2016 Ot 592.1 CALC ULUS OF URETER 09/29/2016 Ot 789.09 10/30/2016 ZOFIA MORA DO Ot 311 DEPRESSIVE DISORDER NEC 10/30/2016 ZOFIA MORA DO Ot 345.90 EPILEPSY UNSPEC W/O MENTION INTRACTABLE 10/30/2016 ZOFIA MORA DO Ot 530.81 ESOPHAGEAL REFLUX 10/30/2016 ZOFIA MORA DO Ot 591 HYDRONEPHROSIS 10/30/2016 MORGAN DO, ZOFIA K Ot 592.1 CALCULUS OF URETER 10/30/2016 MORGAN DO, ZOFIA K Ot 599.0 URIN TRACT INFECTION NOS 10/30/2016 MORGAN DO, ZOFIA K Ot 599.70 HEMATURIA, UNSPECIFIED 10/30/2016 MORGAN DO, ZOFIA K Ot 729.1 MYALGIA AND MYOSITIS NOS 02/23/2017 YASSINE KNOX Merrick COLLAR BASTER Ot 611.72 LUMP OR MASS IN BREAST 02/23/2017 ROMMEL MCMILLAN FIGURE MODEL Ot 611.71 MASTODYNIA 02/23/2017 MARISA HOOK MD Ot 592.0 CALCULUS OF KIDNEY 02/23/2017 MARISA HOOK MD Ot 789.0 0 ABDOMINAL PAIN, UNSPECIFIED SITE 02/23/2017 MARISA HOOK MD Ot 592.9 URINARY CALCULUS NOS 02/23/2017 MARISA HOOK MD Ot 592.0 CALCULUS OF KIDNEY 02/23/2017 MARISA HOOK MD Ot V72.8 4 EXAM PRE-OPERATIVE NOS 02/23/2017 MARSHAL SAUCEDO, BRODY Linda Ot 577 .0 ACUTE PANCREATITIS 02/23/2017 NETTIE HAHN DO Ot 782. 2 LOCAL SUPRFICIAL SWELLNG 02/23/2017 NETTIE HAHN DO Ot V72. 84 EXAM PRE-OPERATIVE NOS 02/23/2017 MARISA HOOK MD Ot 592.0 CALCULUS OF KIDNEY 02/23/2017 MARISA HOOK MD Ot V72.8 4 EXAM PRE-OPERATIVE NOS 02/23/2017 MARISA HOOK MD Ot 592.0 CALCULUS OF KIDNEY 02/23/2017 Ot 595.9 CYST ITIS NOS 02/23/2017 Ot V72.84 EXA M PRE- OPERATIVE NOS 02/23/2017 MARISA OHOK MD Ot 592.0 CALCULUS OF KIDNEY 02/23/2017 MARISA HOOK MD Ot 592.0 CALCULUS OF KIDNEY 02/23/2017 MARISA HOOK MD Ot V72.8 4 EXAM PRE-OPERATIVE NOS 02/23/2017 MARISA HOOK MD Ot 592.0 CALCULUS OF KIDNEY 02/23/2017 JB HOOK MDAS A Ot V45.8 9 POSTSURGICAL STATES NEC 02/23/2017 SABIHA MAST MD Ot 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 02/23/2017 Ot M54.9 DORS ALGIA, UNSPECIFIED 02/23/2017 Ot M79.89 OTH ER SPECIFIED SOFT TISSUE DISORDERS 02/23/2017 SABIHA MAST MD Ot Z12.31 ENCNTR SCREEN MAMMOGRAM FOR MALIGNANT NE 02/23/2017 Ot R92.8 OTH ABN AND INCONCLUSIVE FINDINGS ON DX 02/23/2017 SABIHA MAST MD Ot R92 .8 OTH ABN AND INCONCLUSIVE FINDINGS ON DX [...] MD Ot I10 ESSENTIAL (PRIMARY) HYPERTENSION 02/23/2017 ADOLFO SAUCEDO, ANGEL Saba Ot J45.909 UNSPECIFIED ASTHMA, UNCOMPLICATED 02/23/2017 ANGEL MATA MD Ot K21.9 GASTRO-ESOPHAGEAL REFLUX DISEASE WITHOUT 02/23/2017 ADOLFO SAUCEDO, ANGEL Saba Ot M46.1 SACROILIITIS, NOT ELSEWHERE CLASSIFIED 02/23/2017 ANGEL MATA MD Ot M79.604 PAIN IN RIGHT LEG 02/23/2017 ANGEL MATA MD Ot N39.0 URINARY TRACT INFECTION, SITE NOT SPECIF 02/23/2017 ANGEL MATA MD Ot R10.10 UPPER ABDOMINAL PAIN, UNSPECIFIED 02/23/2017 ANGEL MATA MD Ot Z82.49 FAMILY HX OF ISCHEM HEART DIS AND OTH DI 02/23/2017 ANGEL MATA MD Ot Z85.44 PERSONAL HISTORY [...] UNSP, NOT INTRACTABLE, WITHOUT 02/25/2017 ANGEL MATA MD Ot G47.30 SLEEP APNEA, UNSPECIFIED 02/25/2017 ANGEL MATA MD, Ot I10 ESSENTIAL (PRIMARY) HYPERTENSION 02/25/2017 ANGEL MAAT MD, Ot J45.909 UNSPECIFIED ASTHMA, UNCOMPLICATED 02/25/2017 ANGEL MATA MD, Ot K21.9 GASTRO-ESOPHAGEAL REFLUX DISEASE WITHOUT 02/25/2017 ANGEL MATA MD Ot M46.1 SACROILIITIS, NOT ELSEWHERE CLASSIFIED 02/25/2017 ANGEL MATA MD Ot M79.604 PAIN IN RIGHT LEG 02/25/2017 ANGEL MATA MD Ot N39.0 URINARY TRACT INFECTION, SITE NOT SPECIF 02/25/2017 ANGEL MATA MD Ot R10.10 UPPER ABDOMINAL PAIN, UNSPECIFIED 02/25/2017 ANGEL MATA MD Ot Z82.49 FAMILY HX OF ISCHEM HEART DIS AND OTH DI 02/25/2017 ANGEL MATA MD Ot 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 02/25/2017 ANGEL MATA MD Ot Z87.42 PERSONAL HISTORY OF OTH DISEASES OF THE 02/25/2017 ANGEL MATA MD Ot Z87.442 PERSONAL HISTORY OF URINARY CALCULI 02/25/2017 ANGEL MATA MD Ot Z90.49 ACQUIRED ABSENCE OF OTHER SPECIFIED PART 02/25/2017 AGNEL MATA MD Ot Z90.710 ACQUIRED ABSENCE OF BOTH CERVIX AND UTER 02/25/2017 ANGEL MATA MD Ot Z98.51 TUBAL LIGATION STATUS 03/30/2017 YASSINE KNOX COLLAR BASTER Ot 611.72 LUMP OR MASS IN BREAST 03/30/2017 ROMMEL MCMILLAN APRN Ot 611.71 MASTODYNIA 03/30/2017 MARISA HOOK MD Ot 592.0 CALCULUS OF KIDNEY 03/30/2017 MARISA HOOK MD Ot 789.0 0 ABDOMINAL PAIN, UNSPECIFIED SITE 03/30/2017 MARISA HOOK MD Ot 592.9 URINARY CALCULUS NOS 03/30/2017 MARISA HOOK MD Ot 592.0 CALCULUS OF KIDNEY 03/30/2017 MARISA HOOK MD Ot V72.8 4 EXAM PRE-OPERATIVE NOS 03/30/2017 MARSHAL SAUCEDO, BRODY Linda Ot 577 .0 ACUTE PANCREATITIS 03/30/2017 NETTIE HAHN DO Ot 782. 2 LOCAL SUPRFICIAL SWELLNG 03/30/2017 NETTIE HAHN DO Ot V72. 84 EXAM PRE-OPERATIVE NOS 03/30/2017 MARISA HOOK MD Ot 592.0 CALCULUS OF KIDNEY 03/30/2017 MARISA HOOK MD Ot V72.8 4 EXAM PRE-OPERATIVE NOS 03/30/2017 MARISA HOOK MD Ot 592.0 CALCULUS OF KIDNEY 03/30/2017 Ot 595.9 CYST ITIS NOS 03/30/2017 Ot V72.84 EXA M PRE- OPERATIVE NOS 03/30/2017 MILADYS MD, MARISA A Ot 592.0 CALCULUS OF KIDNEY 03/30/2017 MILADYS SAUCEDO, MARISA A Ot 592.0 CALCULUS OF KIDNEY 03/30/2017 MILADYS SAUCEDO, MARISA Gant Ot V72.8 4 EXAM PRE-OPERATIVE NOS 03/30/2017 MILADYS SAUCEDO, MARISA Gant Ot 592.0 CALCULUS OF KIDNEY 03/30/2017 MARISA HOOK MD Ot V45.8 9 POSTSURGICAL STATES NEC 03/30/2017 SABIHA MAST MD Ot 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 03/30/2017 Ot M54.9 DORS ALGIA, UNSPECIFIED 03/30/2017 Ot M79.89 OTH ER SPECIFIED SOFT TISSUE DISORDERS 03/30/2017 SABIHA MAST MD Ot Z12.31 ENCNTR SCREEN MAMMOGRAM FOR MALIGNANT NE 03/30/2017 Ot R92.8 OTH ABN AND INCONCLUSIVE FINDINGS ON DX 03/30/2017 SABIHA MAST MD Ot R92 .8 OTH ABN AND INCONCLUSIVE FINDINGS ON DX 03/31/2017 Anshu NEWBERRY MD Ot R00 .2 PALPITATIONS 03/31/2017 Anshu NEWBERRY MD Ot R00 .2 PALPITATIONS 04/01/2017 Ot 592.1 CALC ULUS OF URETER 04/01/2017 Ot 789.09 04/01/2017 Anshu NEWBERRY MD Ot R00 .2 PALPITATIONS 04/09/2017 Anshu NEWBERRY MD Ot E78 .5 HYPERLIPIDEMIA, UNSPECIFIED 04/09/2017 Anshu NEWBERRY MD Ot I10 ESSENTIAL (PRIMARY) HYPERTENSION 04/09/2017 Anshu NEWBERRY MD Ot R00 .2 PALPITATIONS 04/09/2017 Anshu NEWBERRY MD Ot R06.02 SHORTNESS OF BREATH 04/15/2017 Anshu NEWBERRY MD Ot E78 .5 HYPERLIPIDEMIA, UNSPECIFIED 04/15/2017 Anshu NEWBERRY MD Ot I10 ESSENTIAL (PRIMARY) HYPERTENSION 04/15/2017 Anshu NEWBERRY MD Ot R06.02 SHORTNESS OF BREATH 04/17/2017 Anshu NEWBERRY MD Ot E78 .5 HYPERLIPIDEMIA, UNSPECIFIED 04/17/2017 Anshu NEWBERRY MD Ot I10 ESSENTIAL (PRIMARY) HYPERTENSION 04/17/2017 Anshu NEWBERRY MD Ot R00 .2 PALPITATIONS 04/17/2017 Anshu NEWBERRY MD Ot R06.02 SHORTNESS OF BREATH 04/21/2017 Anshu NEWBERRY MD Ot E78 .5 HYPERLIPIDEMIA, UNSPECIFIED 04/21/2017 Anshu NEWBERRY MD Ot I10 ESSENTIAL (PRIMARY) HYPERTENSION 04/21/2017 Anshu NEWBERRY MD Ot R06.02 SHORTNESS OF BREATH 05/04/2017 Anshu NEWBERRY MD Ot E78 .5 HYPERLIPIDEMIA, UNSPECIFIED 05/04/2017 Anshu NEWBERRY MD Ot I10 ESSENTIAL (PRIMARY) HYPERTENSION 05/04/2017 Anshu NEWBERRY MD Ot I73 .9 PERIPHERAL VASCULAR DISEASE, UNSPECIFIED 05/04/2017 Anshu NEWBERRY MD Ot R00 .2 PALPITATIONS 05/04/2017 Anshu NEWBERRY MD Ot R06.02 SHORTNESS OF BREATH 05/12/2017 Anshu NEWBERRY MD Ot E78 .5 HYPERLIPIDEMIA, UNSPECIFIED 05/12/2017 Anshu NEWBERRY MD Ot I10 ESSENTIAL (PRIMARY) HYPERTENSION 05/12/2017 Anshu NEWBERRY MD Ot I73 .9 PERIPHERAL VASCULAR DISEASE, UNSPECIFIED 05/12/2017 Anshu NEWBERRY MD Ot R00 .2 PALPITATIONS 05/12/2017 Anshu NEWBERRY MD Ot R06.02 SHORTNESS OF BREATH 05/14/2017 Anshu NEWBERRY MD Ot E78 .5 HYPERLIPIDEMIA, UNSPECIFIED 05/14/2017 Anshu NEWBERRY MD Ot I10 ESSENTIAL (PRIMARY) HYPERTENSION 05/14/2017 Anshu NEWBERRY MD Ot R00 .2 PALPITATIONS 05/14/2017 Anshu NEWBERRY MD Ot R06.02 SHORTNESS OF BREATH 05/14/2017 Anshu NEWBERRY MD Ot E78 .5 HYPERLIPIDEMIA, UNSPECIFIED 05/14/2017 Anshu NEWBERRY MDWAN Ot I10 ESSENTIAL (PRIMARY) HYPERTENSION 05/14/2017 CONI SAUCEDO, Anshu CASE Ot R06.02 SHORTNESS OF BREATH 06/11/2017 CONI SUACEDO, Anshu CASE Ot E78 .5 HYPERLIPIDEMIA, UNSPECIFIED 06/11/2017 CONI SAUCEDO, Anshu CASE Ot I10 ESSENTIAL (PRIMARY) HYPERTENSION 06/11/2017 CONI SAUCEDO, Anshu CASE Ot R00 .2 PALPITATIONS 06/11/2017 CONI SAUCEDO, Anshu CASE Ot R06.02 SHORTNESS OF BREATH 06/11/2017 CONI SAUCEDO, Anshu CASE Ot E78 .5 HYPERLIPIDEMIA, UNSPECIFIED 06/11/2017 CONI SAUCEDO, Anshu CASE Ot I10 ESSENTIAL (PRIMARY) HYPERTENSION 06/11/2017 CONI SAUCEDO, Anshu CASE Ot R06.02 SHORTNESS OF BREATH 10/20/2017 HHAN DO, NETTIE D Ot R19. 7 DIARRHEA, UNSPECIFIED 10/20/2017 HAHN DO, NETTIE D Ot Z01.818 ENCOUNTER FOR OTHER PREPROCEDURAL EXAMIN 10/21/2017 HAHN DO, NETTIE D Ot R19. 7 DIARRHEA, UNSPECIFIED 10/21/2017 HAHN DO, NETTIE D Ot Z01.818 ENCOUNTER FOR OTHER PREPROCEDURAL EXAMIN 10/21/2017 HAHN DO, NETTIE D Ot R19. 7 DIARRHEA, UNSPECIFIED 10/21/2017 HAHN DO, NETTIE D Ot Z01.818 ENCOUNTER FOR OTHER PREPROCEDURAL EXAMIN 10/22/2017 HAHN DO, NETTIE D Ot R19. 7 DIARRHEA, UNSPECIFIED 10/22/2017 HAHN DO, NETTIE D Ot Z01.818 ENCOUNTER FOR OTHER PREPROCEDURAL EXAMIN 10/27/2017 HAHN DO, NETTIE D Ot R19. 7 DIARRHEA, UNSPECIFIED 10/27/2017 HAHN DO, NETTIE D Ot Z01.818 ENCOUNTER FOR OTHER PREPROCEDURAL EXAMIN 10/27/2017 YASSINE KNOX COLLAR BASTER Ot 611.72 LUMP OR MASS IN BREAST 10/27/2017 ROMMEL MCMILLAN FIGURE MODEL Ot 611.71 MASTODYNIA 10/27/2017 MILADYSMARISA MADISON MD Ot 592.0 CALCULUS OF KIDNEY 10/27/2017 MARISA HOOK MD Ot 789.0 0 ABDOMINAL PAIN, UNSPECIFIED SITE 10/27/2017 MARISA HOOK MD Ot 592.9 URINARY CALCULUS NOS 10/27/2017 MARISA HOOK MD Ot 592.0 CALCULUS OF KIDNEY 10/27/2017 MARISA HOOK MD Ot V72.8 4 EXAM PRE-OPERATIVE NOS 10/27/2017 MARSHAL SAUCEDO, BRODY Linda Ot 577 .0 ACUTE PANCREATITIS 10/27/2017 [place] NETTIE DE LA TORRE Ot 782. 2 LOCAL SUPRFICIAL SWELLNG 10/27/2017 NETTIE HAHN DO Ot V72. 84 EXAM PRE-OPERATIVE NOS 10/27/2017 MARISA HOOK MD Ot 592.0 CALCULUS OF KIDNEY 10/27/2017 MARISA HOOK MD Ot V72.8 4 EXAM PRE-OPERATIVE NOS 10/27/2017 MARISA HOOK MD Ot 592.0 CALCULUS OF KIDNEY 10/27/2017 Ot 595.9 CYST ITIS NOS 10/27/2017 Ot V72.84 EXA M PRE- OPERATIVE NOS 10/27/2017 MARISA HOOK MD Ot 592.0 CALCULUS OF KIDNEY 10/27/2017 MARISA HOOK MD Ot 592.0 CALCULUS OF KIDNEY 10/27/2017 MARISA HOOK MD Ot V72.8 4 EXAM PRE-OPERATIVE NOS 10/27/2017 MARISA HOOK MD Ot 592.0 CALCULUS OF KIDNEY 10/27/2017 MARISA HOOK MD Ot V45.8 9 POSTSURGICAL STATES NEC 10/27/2017 SABIHA MAST MD Ot 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 10/27/2017 Ot M54.9 DORS ALGIA, UNSPECIFIED 10/27/2017 Ot M79.89 OTH ER SPECIFIED SOFT TISSUE DISORDERS 10/27/2017 SABIHA MAST MD Ot Z12.31 ENCNTR SCREEN MAMMOGRAM FOR MALIGNANT NE 10/27/2017 Ot R92.8 OTH ABN AND INCONCLUSIVE FINDINGS ON DX 10/27/2017 SABIHA MAST MD Ot R92 .8 OTH ABN AND INCONCLUSIVE FINDINGS ON DX 10/27/2017 CONI SAUCEDO, Anshu CASE Ot E78 .5 HYPERLIPIDEMIA, UNSPECIFIED 10/27/2017 Anshu NEWBERRY MD Ot I10 ESSENTIAL (PRIMARY) HYPERTENSION 10/27/2017 Anshu NEWBERRY MD Ot R00 .2 PALPITATIONS 10/27/2017 Anshu NEWBERRY MD Ot R06.02 SHORTNESS OF BREATH 10/27/2017 Anshu NEWBERRY MD Ot E78 .5 HYPERLIPIDEMIA, UNSPECIFIED 10/27/2017 Anshu NEWBERRY MD Ot I10 ESSENTIAL (PRIMARY) HYPERTENSION 10/27/2017 Anshu NEWBERRY MD Ot R06.02 SHORTNESS OF BREATH 10/27/2017 Anshu NEWBERRY MD Ot E78 .5 HYPERLIPIDEMIA, UNSPECIFIED 10/27/2017 Anshu NEWBERRY MD Ot I10 ESSENTIAL (PRIMARY) HYPERTENSION 10/27/2017 Anshu NEWBERRY MD Ot I73 .9 PERIPHERAL VASCULAR DISEASE, UNSPECIFIED 10/27/2017 Anshu NEWBERRY MD Ot R00 .2 PALPITATIONS 10/27/2017 Anshu NEWBERRY MD Ot R06.02 SHORTNESS OF BREATH 10/27/2017 NETTIE HAHN DO Ot D12. 8 BENIGN NEOPLASM OF RECTUM 10/27/2017 NETTIE HAHN DO Ot E78. 5 HYPERLIPIDEMIA, UNSPECIFIED 10/27/2017 NETTIE HAHN DO Ot F32. 9 MAJOR DEPRESSIVE DISORDER, SINGLE EPISOD 10/27/2017 NETTIE HAHN DO Ot G40.909 EPILEPSY, UNSP, NOT INTRACTABLE, WITHOUT 10/27/2017 NETTIE HAHN DO Ot G47. 33 OBSTRUCTIVE SLEEP APNEA (ADULT) (PEDIATR 10/27/2017 NETTIE HAHN DO Ot I10 ESSENTIAL (PRIMARY) HYPERTENSION 10/27/2017 NETTIE HAHN DO Ot J45.909 UNSPECIFIED ASTHMA, UNCOMPLICATED 10/27/2017 NETTIE HAHN DO Ot K21. 9 GASTRO-ESOPHAGEAL REFLUX DISEASE WITHOUT 10/27/2017 NETTIE HAHN DO Ot K44. 9 DIAPHRAGMATIC HERNIA WITHOUT OBSTRUCTION 10/27/2017 NETTIE HAHN DO Ot M79. 7 FIBROMYALGIA 10/27/2017 NETTIE HAHN DO Ot Z79.899 OTHER [employer] SUPERVISOR (CURRENT) DRUG THERAPY 10/27/2017 NETTIE HAHN DO Ot Z85. 44 PERSONAL HISTORY OF MALIG NEOPLASM OF FE 10/29/2017 NETTIE HAHN DO Ot D12. 8 BENIGN NEOPLASM OF RECTUM 10/29/2017 NETTIE HAHN DO Ot E78. 5 HYPERLIPIDEMIA, UNSPECIFIED 10/29/2017 NETTIE HAHN DO Ot F32. 9 MAJOR DEPRESSIVE DISORDER, SINGLE EPISOD 10/29/2017 NETTIE HAHN DO Ot G40.909 EPILEPSY, UNSP, NOT INTRACTABLE, WITHOUT 10/29/2017 NETTIE HAHN DO Ot G47. 33 OBSTRUCTIVE SLEEP APNEA (ADULT) (PEDIATR 10/29/2017 NETTIE HAHN DO Ot I10 ESSENTIAL (PRIMARY) HYPERTENSION 10/29/2017 NETTIE HAHN DO Ot J45.909 UNSPECIFIED ASTHMA, UNCOMPLICATED 10/29/2017 NETTIE HAHN DO Ot K21. 9 GASTRO-ESOPHAGEAL REFLUX DISEASE WITHOUT 10/29/2017 NETTIE HAHN DO Ot K44. 9 DIAPHRAGMATIC HERNIA WITHOUT OBSTRUCTION 10/29/2017 NETTIE HAHN DO Ot M79. 7 FIBROMYALGIA 10/29/2017 NETTIE HAHN DO Ot Z79.899 OTHER [employer]PER[employer] (CURRENT) DRUG THERAPY 10/29/2017 NETTIE HAHN DO Ot Z85. 44 PERSONAL HISTORY OF MALIG NEOPLASM OF FE 12/22/2017 ADOLFO SAUCEDO, ANGEL Saba Ot F32.9 MAJOR DEPRESSIVE DISORDER, SINGLE EPISOD 12/22/2017 ADOLFO SAUCEDO, ANGEL Saba Ot F41.9 ANXIETY DISORDER, UNSPECIFIED 12/22/2017 ADOLFO SAUCEDO, ANGEL Saba Ot G40.909 EPILEPSY, UNSP, NOT INTRACTABLE, WITHOUT 12/22/2017 ADOLFO SAUCEDO, ANGEL Saba Ot G43.909 MIGRAINE, UNSP, NOT INTRACTABLE, WITHOUT 12/22/2017 ADOLFO SAUCEDO, ANGEL Saba Ot G47.30 SLEEP APNEA, UNSPECIFIED 12/22/2017 ANGEL MATA MD Ot I10 ESSENTIAL (PRIMARY) HYPERTENSION 12/22/2017 ANGEL MATA MD, Ot J45.909 UNSPECIFIED ASTHMA, UNCOMPLICATED 12/22/2017 ANGEL MATA MD, Ot K21.9 GASTRO-ESOPHAGEAL REFLUX DISEASE WITHOUT 12/22/2017 ANGEL MATA MD, Ot N20.0 CALCULUS OF KIDNEY 12/22/2017 ANGEL MATA MD, Ot R10.30 LOWER ABDOMINAL PAIN, UNSPECIFIED 12/22/2017 ANGEL MATA MD, Ot Z82.49 FAMILY HX OF ISCHEM HEART DIS AND OTH DI 12/22/2017 ANGEL MATA MD, Ot 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 12/22/2017 ANGEL MATA MD, Ot Z87.19 PERSONAL HISTORY OF OTHER DISEASES OF TH 12/22/2017 ANGEL MATA MD, Ot Z87.440 PERSONAL HISTORY OF URINARY (TRACT) INFE 12/22/2017 ANGEL MATA MD, Ot Z87.448 PERSONAL HISTORY OF OTHER DISEASES OF UR 12/22/2017 ANGEL MATA MD, Ot Z88.1 ALLERGY STATUS TO OTHER ANTIBIOTIC AGENT 12/22/2017 ANGEL MATA MD, Ot Z88.2 ALLERGY STATUS TO SULFONAMIDES STATUS 12/22/2017 ANGEL MATA MD, Ot Z88.4 ALLERGY STATUS TO ANESTHETIC AGENT STATU 12/22/2017 ANGEL MATA MD Ot Z88.5 ALLERGY STATUS TO NARCOTIC AGENT STATUS 12/22/2017 ANGEL MATA MD Ot Z88.6 ALLERGY STATUS TO ANALGESIC AGENT STATUS 12/22/2017 ANGEL MATA MD, Ot Z88.8 ALLERGY STATUS TO OTH DRUG/MEDS/BIOL SUB 12/22/2017 ANGEL MATA MD, Ot Z90.49 ACQUIRED ABSENCE OF OTHER SPECIFIED PART 12/22/2017 ANGEL MATA MD, Ot Z90.710 ACQUIRED ABSENCE OF BOTH CERVIX AND UTER 12/22/2017 ANGEL MATA MD Ot Z90.89 ACQUIRED ABSENCE OF OTHER ORGANS 12/22/2017 ANGEL MATA MD, Ot Z98.51 TUBAL LIGATION STATUS 12/25/2017 ANGEL MATA MD Ot F32.9 MAJOR DEPRESSIVE DISORDER, SINGLE EPISOD 12/25/2017 ANGEL MATA MD Ot F41.9 ANXIETY DISORDER, UNSPECIFIED 12/25/2017 ANGEL MATA MD Ot G40.909 EPILEPSY, UNSP, NOT INTRACTABLE, WITHOUT 12/25/2017 ANGEL MATA MD Ot G43.909 MIGRAINE, UNSP, NOT INTRACTABLE, WITHOUT 12/25/2017 ANGEL MATA MD Ot G47.30 SLEEP APNEA, UNSPECIFIED 12/25/2017 ANGEL MATA MD Ot I10 ESSENTIAL (PRIMARY) HYPERTENSION 12/25/2017 ANGEL MTAA MD Ot J45.909 UNSPECIFIED ASTHMA, UNCOMPLICATED 12/25/2017 ANGEL MATA MD Ot K21.9 GASTRO-ESOPHAGEAL REFLUX DISEASE WITHOUT 12/25/2017 ANGEL MATA MD Ot N20.0 CALCULUS OF KIDNEY 12/25/2017 ANGEL MATA MD Ot R10.30 LOWER ABDOMINAL PAIN, UNSPECIFIED 12/25/2017 ANGEL MATA MD Ot Z82.49 FAMILY HX OF ISCHEM HEART DIS AND OTH DI 12/25/2017 ANGEL MATA MD Ot 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 12/25/2017 ANGEL MATA MD Ot Z87.19 PERSONAL HISTORY OF OTHER DISEASES OF TH 12/25/2017 ANGEL MATA MD Ot Z87.440 PERSONAL HISTORY OF URINARY (TRACT) INFE 12/25/2017 ANGEL MATA MD Ot Z87.448 PERSONAL HISTORY OF OTHER DISEASES OF UR 12/25/2017 ANGEL MATA MD Ot Z88.1 ALLERGY STATUS TO OTHER ANTIBIOTIC AGENT 12/25/2017 ANGEL MATA MD Ot Z88.2 ALLERGY STATUS TO SULFONAMIDES STATUS 12/25/2017 ANGEL MATA MD Ot Z88.4 ALLERGY STATUS TO ANESTHETIC AGENT STATU 12/25/2017 ANGEL MATA MD Ot Z88.5 ALLERGY STATUS TO NARCOTIC AGENT STATUS 12/25/2017 ANGEL MATA MD Ot Z88.6 ALLERGY STATUS TO ANALGESIC AGENT STATUS 12/25/2017 ANGEL MATA MD Ot Z88.8 ALLERGY STATUS TO OTH DRUG/MEDS/BIOL SUB 12/25/2017 ANGEL MATA MD Ot Z90.49 ACQUIRED ABSENCE OF OTHER SPECIFIED PART 12/25/2017 ANGEL MATA MD Ot Z90.710 ACQUIRED ABSENCE OF BOTH CERVIX AND UTER 12/25/2017 ANGEL MATA MD Ot Z90.89 ACQUIRED ABSENCE OF OTHER ORGANS 12/25/2017 ANGEL MATA MD Ot Z98.51 TUBAL LIGATION STATUS 12/25/2017 LAURA FINCH APRN Ot F32 .9 MAJOR DEPRESSIVE DISORDER, SINGLE EPISOD 12/25/2017 LAURA FINCH APRN Ot F41 .9 ANXIETY DISORDER, UNSPECIFIED 12/25/2017 LAURA FINCH APRN Ot G40.909 EPILEPSY, UNSP, NOT INTRACTABLE, WITHOUT 12/25/2017 LAURA FINCH APRN Ot G43.909 MIGRAINE, UNSP, NOT INTRACTABLE, WITHOUT 12/25/2017 LAURA FINCH APRN Ot G47.30 SLEEP APNEA, UNSPECIFIED 12/25/2017 LAURA FINCH APRN Ot I10 ESSENTIAL (PRIMARY) HYPERTENSION 12/25/2017 LAURA FINCH APRN Ot J45.909 UNSPECIFIED ASTHMA, UNCOMPLICATED 12/25/2017 LAURA FINCH APRN Ot K21 .9 GASTRO-ESOPHAGEAL REFLUX DISEASE WITHOUT 12/25/2017 LAURA FINCH APRN Ot N20 .0 CALCULUS OF KIDNEY 12/25/2017 LAURA FINCH APRN Ot N39 .0 URINARY TRACT INFECTION, SITE NOT SPECIF 12/25/2017 LAURA FINCH APRN Ot Z82.49 FAMILY HX OF ISCHEM HEART DIS AND OTH DI 12/25/2017 LAURA FINCH APRN Ot 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 12/25/2017 LAURA FINCH APRN Ot Z87.19 PERSONAL HISTORY OF OTHER DISEASES OF TH 12/25/2017 FINCH, PETER J FIGURE MODEL Ot Z88 .1 ALLERGY STATUS TO OTHER ANTIBIOTIC AGENT 12/25/2017 LAURA FINCH FIGURE MODEL Ot Z88 .2 ALLERGY STATUS TO SULFONAMIDES STATUS 12/25/2017 ALURA FINCH FIGURE MODEL Ot Z88 .4 ALLERGY STATUS TO ANESTHETIC AGENT STATU 12/25/2017 LAURA FINCH FIGURE MODEL Ot Z88 .5 ALLERGY STATUS TO NARCOTIC AGENT STATUS 12/25/2017 LAURA FINCH APRN Ot Z88 .6 ALLERGY STATUS TO ANALGESIC AGENT STATUS 12/25/2017 LAURA FINCH APRN Ot Z88 .8 ALLERGY STATUS TO OTH DRUG/MEDS/BIOL SUB 12/25/2017 LAURA FINCH APRN Ot Z90.710 ACQUIRED ABSENCE OF BOTH CERVIX AND UTER 12/25/2017 LAURA FINCH APRN Ot Z90.89 ACQUIRED ABSENCE OF OTHER ORGANS [...] STATUS TO OTHER ANTIBIOTIC AGENT 12/28/2017 ANGEL AMTA MD Ot Z88.2 ALLERGY STATUS TO SULFONAMIDES STATUS 12/28/2017 ANGEL MATA MD Ot Z88.4 ALLERGY STATUS TO ANESTHETIC AGENT STATU 12/28/2017 ANGEL MATA MD Ot Z88.5 ALLERGY STATUS TO NARCOTIC AGENT [...] LIGATION STATUS 12/28/2017 LAURA FINCH APRN Ot F32 .9 MAJOR DEPRESSIVE DISORDER, SINGLE EPISOD 12/28/2017 LAURA FINCH APRN Ot F41 .9 ANXIETY DISORDER, UNSPECIFIED 12/28/2017 LAURA FINCH APRN Ot G40.909 EPILEPSY, UNSP, NOT INTRACTABLE, WITHOUT 12/28/2017 LAURA FINCH APRN Ot G43.909 MIGRAINE, UNSP, NOT INTRACTABLE, WITHOUT 12/28/2017 LAURA FINCH APRN Ot G47.30 SLEEP APNEA, UNSPECIFIED 12/28/2017 LAURA FINCH APRN Ot I10 ESSENTIAL (PRIMARY) HYPERTENSION 12/28/2017 LAURA FINCH APRN Ot J45.909 UNSPECIFIED ASTHMA, UNCOMPLICATED 12/28/2017 LAURA FINCH APRN Ot K21 .9 GASTRO-ESOPHAGEAL REFLUX DISEASE WITHOUT 12/28/2017 LAURA FINCH APRN Ot N20 .0 CALCULUS OF KIDNEY 12/28/2017 LAURA FINCH APRN Ot N39 .0 URINARY TRACT INFECTION, SITE NOT SPECIF 12/28/2017 LAURA FINCH APRN Ot Z82.49 FAMILY HX OF ISCHEM HEART DIS AND OTH DI 12/28/2017 LAURA FINCH APRN Ot 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 12/28/2017 LAURA FINCH APRN Ot Z87.19 PERSONAL HISTORY OF OTHER DISEASES OF TH 12/28/2017 LAURA FINCH APRN Ot Z88 .1 ALLERGY STATUS TO OTHER ANTIBIOTIC AGENT 12/28/2017 LAURA FINCH APRN Ot Z88 .2 ALLERGY STATUS TO SULFONAMIDES STATUS 12/28/2017 LAURA FINCH APRN Ot Z88 .4 ALLERGY STATUS TO ANESTHETIC AGENT STATU 12/28/2017 LAURA FINCH APRN Ot Z88 .5 ALLERGY STATUS TO NARCOTIC AGENT STATUS 12/28/2017 LAURA FINCH APRN Ot Z88 .6 ALLERGY STATUS TO ANALGESIC AGENT STATUS 12/28/2017 LAURA FINCH APRN Ot Z88 .8 ALLERGY STATUS TO OTH DRUG/MEDS/BIOL SUB 12/28/2017 LAURA FINCH APRN Ot Z90.710 ACQUIRED ABSENCE OF BOTH CERVIX AND UTER 12/28/2017 LAURA FINCH APRN Ot Z90.89 ACQUIRED ABSENCE OF OTHER ORGANS 12/28/2017 LAURA FINCH APRN Ot Z98.51 TUBAL LIGATION STATUS 12/28/2017 MARISA HOOK MD Ot N20.0 CALCULUS OF KIDNEY 12/28/2017 MARISA HOOK MD Ot Z01.8 18 ENCOUNTER FOR OTHER PREPROCEDURAL EXAMIN 12/29/2017 MARISA HOOK MD Ot G47.3 3 OBSTRUCTIVE SLEEP APNEA (ADULT) (PEDIATR 12/29/2017 MARISA HOOK MD Ot I10 ESSENTIAL (PRIMARY) HYPERTENSION 12/29/2017 MARISA HOOK MD Ot J45.9 09 UNSPECIFIED ASTHMA, UNCOMPLICATED 12/29/2017 MILADYS SAUCEDO, MARISA Gant Ot N20.0 CALCULUS OF KIDNEY 12/29/2017 MILADYS SAUCEDO, MARISA Gant Ot R56.9 UNSPECIFIED CONVULSIONS 12/29/2017 MILADYS SAUCEDO, MARISA Gant Ot Z79.8 99 OTHER [employer] SUPERVISOR (CURRENT) DRUG THERAPY 12/29/2017 MILADYS SAUCEDO, MARISA Gant Ot Z01.8 18 ENCOUNTER FOR OTHER PREPROCEDURAL EXAMIN 12/29/2017 MILADYS SAUCEDO, MARISA Gant Ot Z01.8 18 ENCOUNTER FOR OTHER PREPROCEDURAL EXAMIN 12/29/2017 PRECIOUS MORA DOA K Ot E78.00 PURE HYPERCHOLESTEROLEMIA, UNSPECIFIED 12/29/2017 MORGAN PRECIOUS DE [place]OR[place] K Ot F32.9 MAJOR DEPRESSIVE DISORDER, SINGLE EPISOD 12/29/2017 MORGAN PRECIOUS DE [place] K Ot F41.9 ANXIETY DISORDER, UNSPECIFIED 12/29/2017 PRECIOUS MORA DOA K Ot G40.909 EPILEPSY, UNSP, NOT INTRACTABLE, WITHOUT 12/29/2017 MORGAN DO ZOFIA K Ot G43.909 MIGRAINE, UNSP, NOT INTRACTABLE, WITHOUT 12/29/2017 MORGAN DO ZOFIA K Ot G47.30 SLEEP APNEA, UNSPECIFIED 12/29/2017 MORGAN DO ZOFIA K Ot G89.18 OTHER ACUTE POSTPROCEDURAL PAIN 12/29/2017 MORGAN DE [place] TORRE ZOFIA K Ot I10 ESSENTIAL (PRIMARY) HYPERTENSION 12/29/2017 PRECIOUS MORA DOA K Ot J45.909 UNSPECIFIED ASTHMA, UNCOMPLICATED 12/29/2017 MORGAN DO ZOFIA K Ot K21.9 GASTRO-ESOPHAGEAL REFLUX DISEASE WITHOUT 12/29/2017 MORGAN DO ZOFIA K Ot N20.1 CALCULUS OF URETER 12/29/2017 PRECIOUS MORA DOA K Ot N99.89 OTH POSTPROCEDURAL COMPLICATIONS AND DIS 12/29/2017 PRECIOUS MORA DOA K Ot R11.2 NAUSEA WITH VOMITING, UNSPECIFIED 12/29/2017 MORGAN DE [place] ZOFIA K Ot R20.1 HYPOESTHESIA OF SKIN 12/29/2017 PRECIOUS MORA DOA K Ot Z82.49 FAMILY HX OF ISCHEM HEART DIS AND OTH DI 12/29/2017 ZOFIA MORA DO Ot Z85.43 PERSONAL HISTORY OF MALIGNANT NEOPLASM O 12/29/2017 ZOFIA MORA DO Ot Z87.01 PERSONAL HISTORY OF PNEUMONIA (RECURRENT 12/29/2017 ZOFIA MORA DO Ot Z87.19 PERSONAL HISTORY OF OTHER DISEASES OF TH 12/29/2017 ZOFIA MORA DO Ot Z87.448 PERSONAL HISTORY OF OTHER DISEASES OF UR 12/29/2017 ZOFIA OMRA DO Ot Z88.1 ALLERGY STATUS TO OTHER ANTIBIOTIC AGENT 12/29/2017 ZOFIA MORA DO Ot Z88.2 ALLERGY STATUS TO SULFONAMIDES STATUS 12/29/2017 ZOFIA MORA DO Ot Z88.4 ALLERGY STATUS TO ANESTHETIC AGENT STATU 12/29/2017 ZOFIA MORA DO Ot Z88.5 ALLERGY STATUS TO NARCOTIC AGENT STATUS 12/29/2017 ZOFIA MORA DO Ot Z88.6 ALLERGY STATUS TO ANALGESIC AGENT STATUS 12/29/2017 ZOFIA MORA DO Ot Z88.8 ALLERGY STATUS TO OTH DRUG/MEDS/BIOL SUB 12/29/2017 ZOFIA MORA DO Ot Z90.710 ACQUIRED ABSENCE OF BOTH CERVIX AND UTER 12/29/2017 ZOFIA MORA DO Ot Z90.89 ACQUIRED ABSENCE OF OTHER ORGANS 12/29/2017 ZOFIA MORA DO Ot Z98.51 TUBAL LIGATION STATUS 12/29/2017 ZOFIA MORA DO Ot Z98.890 OTHER SPECIFIED POSTPROCEDURAL STATES 01/13/2018 MILADYS SAUCEDO, MARISA Gant Ot E78.5 HYPERLIPIDEMIA, UNSPECIFIED 01/13/2018 MILADYS SAUCEDO, MARISA Gant Ot F32.9 MAJOR DEPRESSIVE DISORDER, SINGLE EPISOD 01/13/2018 MARISA HOOK MD Ot F41.9 ANXIETY DISORDER, UNSPECIFIED 01/13/2018 MARISA HOOK MD Ot G40.9 09 EPILEPSY, UNSP, NOT INTRACTABLE, WITHOUT 01/13/2018 MARISA HOOK MD, Ot G47.3 3 OBSTRUCTIVE SLEEP APNEA (ADULT) (PEDIATR 01/13/2018 MARISA HOOK MD Ot I10 ESSENTIAL (PRIMARY) HYPERTENSION 01/13/2018 MARISA HOOK MD Ot J45.9 09 UNSPECIFIED ASTHMA, UNCOMPLICATED 01/13/2018 MARISA HOOK MD, Ot K21.9 GASTRO-ESOPHAGEAL REFLUX DISEASE WITHOUT 01/13/2018 MARISA HOOK MD Ot M79.7 FIBROMYALGIA 01/13/2018 MARISA HOOK MD Ot N20.0 CALCULUS OF KIDNEY 01/13/2018 MARISA HOOK MD, Ot N20.1 CALCULUS OF URETER 01/13/2018 MARISA HOOK MD Ot Z11.2 ENCOUNTER FOR SCREENING FOR OTHER BACTER 01/13/2018 MARISA HOOK MD Ot Z79.8 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 [employer] SUPERVISOR (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) DRUG THERAPY 01/15/2018 BRODY ARAYA MD Ot F39 UNSPECIFIED MOOD [AFFECTIVE] DISORDER 01/15/2018 BRODY ARAYA MD Ot I10 ESSENTIAL (PRIMARY) HYPERTENSION 01/15/2018 BRODY ARAYA MD Ot M54 .9 DORSALGIA, UNSPECIFIED 01/15/2018 BRODY ARAYA MD Ot N20 .0 CALCULUS OF KIDNEY 01/15/2018 BRODY ARAYA MD Ot R11 .2 NAUSEA WITH VOMITING, UNSPECIFIED 01/15/2018 BRODY ARAYA MD Ot Z98.890 OTHER SPECIFIED POSTPROCEDURAL STATES 01/15/2018 BRODY ARAYA MD Ot F39 UNSPECIFIED MOOD [AFFECTIVE] DISORDER 01/15/2018 BRODY ARAYA MD Ot I10 ESSENTIAL (PRIMARY) HYPERTENSION 01/15/2018 BRODY ARAYA MD Ot M54 .9 DORSALGIA, UNSPECIFIED 01/15/2018 BRODY ARAYA MD Ot N20 .0 CALCULUS OF KIDNEY 01/15/2018 BRODY ARAYA MD Ot R11 .2 NAUSEA WITH VOMITING, UNSPECIFIED 01/15/2018 BRODY ARAYA MD Ot Z98.890 OTHER SPECIFIED POSTPROCEDURAL STATES 01/15/2018 MARISA HOOK MD Ot E78.5 HYPERLIPIDEMIA, UNSPECIFIED 01/15/2018 MARISA HOOK MD Ot F32.9 MAJOR DEPRESSIVE DISORDER, SINGLE EPISOD 01/15/2018 MARISA HOOK MD Ot F41.9 ANXIETY DISORDER, UNSPECIFIED 01/15/2018 MARISA HOOK MD Ot G40.9 09 EPILEPSY, UNSP, NOT INTRACTABLE, WITHOUT 01/15/2018 MARISA HOOK MD Ot G47.3 3 OBSTRUCTIVE SLEEP APNEA (ADULT) (PEDIATR 01/15/2018 MARISA HOOK MD, Ot I10 ESSENTIAL (PRIMARY) HYPERTENSION 01/15/2018 MARISA HOOK MD, Ot J45.9 09 UNSPECIFIED ASTHMA, UNCOMPLICATED 01/15/2018 MARISA HOOK MD Ot K21.9 GASTRO-ESOPHAGEAL REFLUX DISEASE WITHOUT 01/15/2018 MARISA HOOK MD Ot M79.7 FIBROMYALGIA 01/15/2018 MARISA HOOK MD, Ot N20.0 CALCULUS OF KIDNEY 01/15/2018 MARISA HOOK MD, Ot N20.1 CALCULUS OF URETER 01/15/2018 MARISA HOOK MD Ot Z11.2 ENCOUNTER FOR SCREENING FOR OTHER BACTER 01/15/2018 MARISA HOOK MD Ot Z79.8 99 OTHER [employer] SUPER[employer]OR (CURRENT) DRUG THERAPY 01/17/2018 Ot Z01.818 EN COUNTER FOR OTHER PREPROCEDURAL EXAMIN 01/26/2018 MARISA HOOK MD Ot N20.1 CALCULUS OF URETER 01/26/2018 MARISA HOOK MD Ot N28.8 9 OTHER SPECIFIED DISORDERS OF KIDNEY AND 01/26/2018 MARISA HOOK MD Ot Z98.8 90 OTHER SPECIFIED POSTPROCEDURAL STATES 01/26/2018 MARISA HOOK MD Ot Z01.8 18 ENCOUNTER FOR OTHER PREPROCEDURAL EXAMIN 01/26/2018 MARISA HOOK MD Ot N20.1 CALCULUS OF URETER 01/26/2018 MARISA HOOK MD Ot N28.8 9 OTHER SPECIFIED DISORDERS OF KIDNEY AND 01/26/2018 MARISA HOOK MD Ot Z98.8 90 OTHER SPECIFIED POSTPROCEDURAL STATES 01/26/2018 Ot N20.0 CALC ULUS OF KIDNEY 01/26/2018 MARISA HOOK MD Ot G62.9 POLYNEUROPATHY, UNSPECIFIED 01/26/2018 MARISA HOOK MD Ot I10 ESSENTIAL (PRIMARY) HYPERTENSION 01/26/2018 MARISA HOOK MD, Ot N20.0 CALCULUS OF KIDNEY 01/26/2018 MARISA HOOK MD Ot Z88.5 ALLERGY STATUS TO NARCOTIC AGENT STATUS 01/27/2018 MARISA HOOK MD Ot G62.9 POLYNEUROPATHY, UNSPECIFIED 01/27/2018 MARISA HOOK MD Ot I10 ESSENTIAL (PRIMARY) HYPERTENSION 01/27/2018 MARISA HOOK MD Ot N20.0 CALCULUS OF KIDNEY 01/27/2018 MARISA HOOK MD Ot Z88.5 ALLERGY STATUS TO NARCOTIC AGENT STATUS 02/05/2018 MARISA HOOK MD Ot N20.1 CALCULUS OF URETER 02/05/2018 MARISA HOOK MD Ot N28.8 9 OTHER SPECIFIED DISORDERS OF KIDNEY AND 02/05/2018 MARISA HOOK MD Ot Z98.8 90 OTHER SPECIFIED POSTPROCEDURAL STATES 02/11/2018 MARISA HOOK MD Ot G62.9 POLYNEUROPATHY, UNSPECIFIED 02/11/2018 MARISA HOOK MD Ot I10 ESSENTIAL (PRIMARY) HYPERTENSION 02/11/2018 MARISA HOOK MD Ot N20.0 CALCULUS OF KIDNEY 02/11/2018 MARISA HOOK MD Ot Z88.5 ALLERGY STATUS TO NARCOTIC AGENT STATUS 02/12/2018 MARISA HOOK MD Ot G62.9 POLYNEUROPATHY, UNSPECIFIED 02/12/2018 MARISA HOOK MD Ot I10 ESSENTIAL (PRIMARY) HYPERTENSION 02/12/2018 MARISA HOOK MD Ot N20.0 CALCULUS OF KIDNEY 02/12/2018 MARISA HOOK MD Ot Z88.5 ALLERGY STATUS TO NARCOTIC AGENT STATUS 02/15/2018 Anshu NEWBERRY MD Ot E78 .5 HYPERLIPIDEMIA, UNSPECIFIED 05/03/2018 Ot 592.1 CALC ULUS OF URETER 05/03/2018 Ot 789.09 09/29/2018 Ot 592.1 CALC ULUS OF URETER 09/29/2018 Ot 789.09 10/30/2018 Ot 592.1 CALC ULUS OF URETER 10/30/2018 Ot 789.09 12/30/2018 Ot 592.1 CALC ULUS OF URETER 12/30/2018 Ot 789.09 06/01/2019 Ot 592.1 CALC ULUS OF URETER 06/01/2019 Ot 789.09 07/15/2019 ANGEL MATA MD, Ot E78.00 PURE HYPERCHOLESTEROLEMIA, UNSPECIFIED 07/15/2019 ADOLFO SAUCEDO, ANGEL Saba Ot F32.9 MAJOR DEPRESSIVE DISORDER, SINGLE EPISOD 07/15/2019 ANGEL MATA MD Ot F41.9 ANXIETY DISORDER, UNSPECIFIED 07/15/2019 ANGEL MATA MD Ot G25.81 RESTLESS LEGS SYNDROME 07/15/2019 ANGEL MATA MD Ot G40.909 EPILEPSY, UNSP, NOT INTRACTABLE, WITHOUT 07/15/2019 ANGEL MATA MD Ot I10 ESSENTIAL (PRIMARY) HYPERTENSION 07/15/2019 NAGEL MATA MD, Ot K21.9 GASTRO-ESOPHAGEAL REFLUX DISEASE WITHOUT 07/15/2019 ANGEL MATA MD Ot M54.6 PAIN IN THORACIC SPINE 07/15/2019 ANGEL MATA MD Ot R07.9 CHEST PAIN, UNSPECIFIED 07/15/2019 ANGEL MATA MD Ot Z82.49 FAMILY HX OF ISCHEM HEART DIS AND OTH DI 07/15/2019 ANGEL MATA MD Ot 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 07/15/2019 ANGEL MATA MD, Ot Z88.1 ALLERGY STATUS TO OTHER ANTIBIOTIC AGENT 07/15/2019 ANGEL MATA MD, Ot Z88.2 ALLERGY STATUS TO SULFONAMIDES STATUS 07/15/2019 ANGEL MATA MD Ot Z88.5 ALLERGY STATUS TO NARCOTIC AGENT STATUS 07/15/2019 ANGEL MATA MD Ot Z88.6 ALLERGY STATUS TO ANALGESIC AGENT STATUS 07/15/2019 ANGEL MATA MD, Ot Z88.8 ALLERGY STATUS TO OTH DRUG/MEDS/BIOL SUB 07/22/2019 ANGEL MATA MD Ot E78.00 PURE HYPERCHOLESTEROLEMIA, UNSPECIFIED 07/22/2019 ANGEL MATA MD Ot F32.9 MAJOR DEPRESSIVE DISORDER, SINGLE EPISOD 07/22/2019 ADOLFO SAUCEDO, ANGEL Saba Ot F41.9 ANXIETY DISORDER, UNSPECIFIED 07/22/2019 ADOLFO SAUCEDO, ANGEL Saba Ot G25.81 RESTLESS LEGS SYNDROME 07/22/2019 ADOLFO SAUCEDO, ANGEL Saba Ot G40.909 EPILEPSY, UNSP, NOT INTRACTABLE, WITHOUT 07/22/2019 ANGEL MATA MD Ot I10 ESSENTIAL (PRIMARY) HYPERTENSION 07/22/2019 ANGEL MATA MD Ot K21.9 GASTRO-ESOPHAGEAL REFLUX DISEASE WITHOUT 07/22/2019 ANGEL MATA MD Ot M54.6 PAIN IN THORACIC SPINE 07/22/2019 ANGEL MATA MD Ot R07.9 CHEST PAIN, UNSPECIFIED 07/22/2019 ADOLFO SAUCEDO, ANGEL Saba Ot Z82.49 FAMILY HX OF ISCHEM HEART DIS AND OTH DI 07/22/2019 ANGEL MATA MD Ot 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 07/22/2019 ADOLFO SAUCEDO, ANGEL Saba Ot Z88.1 ALLERGY STATUS TO OTHER ANTIBIOTIC AGENT 07/22/2019 ADOLFO SAUCEDO, ANGEL Saba Ot Z88.2 ALLERGY STATUS TO SULFONAMIDES STATUS 07/22/2019 ADOLFO SAUCEDO, ANGEL Saba Ot Z88.5 ALLERGY STATUS TO NARCOTIC AGENT STATUS 07/22/2019 ANGEL MATA MD Ot Z88.6 ALLERGY STATUS TO ANALGESIC AGENT STATUS 07/22/2019 ANGEL MATA MD Ot Z88.8 ALLERGY STATUS TO OT DRUG/MEDS/BIOL SUB 09/10/2019 FIDEL, TARSHA COLLAR BASTER Ot E78.00 PURE HYPERCHOLESTEROLEMIA, UNSPECIFIED 09/10/2019 FIDEL, TARSHA COLLAR BASTER Ot F32.9 MAJOR DEPRESSIVE DISORDER, SINGLE EPISOD 09/10/2019 FIDEL, TARSHA COLLAR BASTER Ot F41.9 ANXIETY DISORDER, UNSPECIFIED 09/10/2019 FIDEL, TARSHA COLLAR BASTER Ot G40.909 EPILEPSY, UNSP, NOT INTRACTABLE, WITHOUT 09/10/2019 FIDEL, TARSHA COLLAR BASTER Ot G47.30 SLEEP APNEA, UNSPECIFIED 09/10/2019 FIDEL, TARSHA COLLAR BASTER Ot I10 ESSENTIAL (PRIMARY) HYPERTENSION 09/10/2019 FIDEL, TARSHA SHERP Ot J45.909 UNSPECIFIED ASTHMA, UNCOMPLICATED 09/10/2019 FIDEL, TARSHA SHERP Ot K21.9 GASTRO-ESOPHAGEAL REFLUX DISEASE WITHOUT 09/10/2019 FIDEL, TARSHA COLLAR BASTER Ot K52.9 NONINFECTIVE GASTROENTERITIS AND COLITIS 09/10/2019 FIDEL, TARSHA SHERP Ot M54.5 LOW BACK PAIN 09/10/2019 FIDEL, TARSHA SHERP Ot M62.830 MUSCLE SPASM OF BACK 09/10/2019 FDIEL, TARSHA COLLAR BASTER Ot M79.7 FIBROMYALGIA 09/10/2019 FIDEL, TARSHA SHERP Ot S39.012A STRAIN OF MUSCLE, FASCIA AND TENDON OF L 09/10/2019 FIDEL, TARSHA SHERP Ot X50.9XXA OTHER AND UNSPECIFIED OVREXRTN OR STRNOU 09/10/2019 FIDEL, TARSHA COLLAR BASTER Ot Z79.899 OTHER [employer] SUPERVISOR (CURRENT) DRUG THERAPY 09/10/2019 FIDEL, TARSHA SHERP Ot Z87.19 PERSONAL HISTORY OF OTHER DISEASES OF TH 09/10/2019 FIDEL, TARSHA SHERP Ot Z88.2 ALLERGY STATUS TO SULFONAMIDES STATUS 09/10/2019 FIDEL, TARSHA COLLAR BASTER Ot Z88.5 ALLERGY STATUS TO NARCOTIC AGENT STATUS 09/10/2019 FIDEL, TARSHA COLLAR BASTER Ot Z88.8 ALLERGY STATUS TO OTH DRUG/MEDS/BIOL SUB 09/30/2019 Ot 592.1 CALC ULUS OF URETER 09/30/2019 Ot 789.09 11/30/2019 Ot 592.1 CALC ULUS OF URETER 11/30/2019 Ot 789.09 01/03/2020 ZOFIA MORA DO Ot E78.00 PURE HYPERCHOLESTEROLEMIA, UNSPECIFIED 01/03/2020 MORGAN PRECIOUS DE [place] K Ot F32.9 MAJOR DEPRESSIVE DISORDER, SINGLE EPISOD 01/03/2020 ZOFIA MORA DO Ot F41.9 ANXIETY DISORDER, UNSPECIFIED 01/03/2020 ZOFIA MORA DO Ot G40.909 EPILEPSY, UNSP, NOT INTRACTABLE, WITHOUT 01/03/2020 PRECIOUS MORA DOA K Ot G89.29 OTHER CHRONIC PAIN 01/03/2020 PRECIOUS MORA DOA Venkata Ot I10 ESSENTIAL (PRIMARY) HYPERTENSION 01/03/2020 MORGAN DO ZOFIA K Ot J45.909 UNSPECIFIED ASTHMA, UNCOMPLICATED 01/03/2020 MORGAN DO, ZOFIA Hastings Ot K21.9 GASTRO-ESOPHAGEAL REFLUX DISEASE WITHOUT 01/03/2020 MORGAN DO, ZOFIA Hastings Ot K58.0 IRRITABLE BOWEL SYNDROME WITH DIARRHEA 01/03/2020 [employer] [facility], ZOFIA Hastings Ot M54.9 DORSALGIA, UNSPECIFIED 01/03/2020 [employer] DO, ZOFIA Venkata Ot M79.10 MYALGIA, UNSPECIFIED SITE 01/03/2020 [employer] DO, ZOFIA K Ot N20.0 CALCULUS OF KIDNEY 01/03/2020 MORGAN DO, ZOFIA Venkata Ot N39.0 URINARY TRACT INFECTION, SITE NOT SPECIF 01/03/2020 [employer] DO, ZOFIA Venkata Ot R07.81 PLEURODYNIA 01/03/2020 [employer] DO, ZOFIA Venkata Ot Z79.899 OTHER [employer] SUPERVISOR (CURRENT) DRUG THERAPY 01/03/2020 [facility], ZOFIA Venkata Ot Z87.01 PERSONAL HISTORY OF PNEUMONIA (RECURRENT 01/03/2020 [facility], ZOFIA K Ot Z87.19 PERSONAL HISTORY OF OTHER DISEASES OF TH 01/03/2020 [employer] DO, ZOFIA Venkata Ot Z88.2 ALLERGY STATUS TO SULFONAMIDES STATUS 01/03/2020 [employer] DO ZOFIA K Ot Z88.5 ALLERGY STATUS TO NARCOTIC AGENT STATUS 01/03/2020 [facility], ZOFIA K Ot Z88.8 ALLERGY STATUS TO OTH DRUG/MEDS/BIOL SUB Procedures Code Description Performed By Per formed On 56.0 TU RE MOV URETER OBSTRUCT 05/01/2009 59.5 RETRO PUBIC URETH SUSPENS 07/18/2009 01060 ROUT INE VENIPUNCTURE 03/31/2012 75569 A1C (IN-HOUSE) 03/31/2012 84460 CBC 03/31/2012 94791 LIPI D PANEL 03/31/2012 74858 CMP 03/31/2012 [id number] GF R CALC (RESULT ONLY) 03/31/2012 14495 TSH 03/31/2012 20424 MICR O ALBUMIN-IN HOUSE 04/01/2012 09255 PSYC H IND W/MED CK 20 04/13/2012 18990 EEG 04/13/2012 Neurology Mino Garcia 04/13/2012 71781 PSYC H DIAG INTER EXAM 04/15/2012 41307 MARVA V PSYTX 45/50 MIN 04/27/2012 70409 PSYC H PHARM MGMT 05/01/2012 29714 PSYC H PHARM MGMT 05/05/2012 63863 MARVA V PSYTX 20/30 MIN 05/21/2012 31992 PSYT X PT&/FAMILY 60 MINUTES 07/07/2012 90928 MAMM OGRAM DX, YOLI 07/08/2012 05141 PAP SMEAR 07/08/2012 Q0091 PAP SMEAR OBTAIN SMEAR 07/08/2012 45058 PSYT X PT&/FAMILY 45 MINUTES 07/21/2012 18345 PSYC H IND W/MED CK 20 08/06/2012 58519 PSYT X PT&/FAMILY 30 MINUTES 08/06/2012 92349 UA L ALFREDO DIP 09/22/2012 98143 PSYT X PT&/FAMILY 45 MINUTES 09/28/2012 04510 PSYT X PT&/FAMILY 45 MINUTES 10/28/2012 17212 PSYC H DIAGNOSTIC EVALUATION 11/15/2012 26589 PSYT X PT&/FAMILY 45 MINUTES 11/23/2012 80118 ROUT INE VENIPUNCTURE 02/28/2013 75859 TSH 02/28/2013 96920 A1C (IN-HOUSE) 02/28/2013 41340 CBC 02/28/2013 15503 LIPI D PANEL 02/28/2013 64520 CMP 02/28/2013 1334245 GF R CALC (RESULT ONLY) 02/28/2013 38343 UA W / CULTURE IF INDICATED 04/07/2013 12299 URIN E DRUG SCREEN (IN-HOUSE) 04/07/2013 58650 TRIG LASHANDA POINT INJ/1-2 MUS 04/08/2013 67609 URIN E OXYCODONE GC/MS 04/08/2013 84813 URIN E TCA CON'F 04/08/2013 34841 URIN E DRUG SCREEN (IN-HOUSE) 05/16/2013 56475 MAMM OGRAM DX, YOLI 05/17/2013 Q0091 PAP SMEAR OBTAIN SMEAR 05/17/2013 68224 PAP SMEAR 05/26/2013 19086 PSYT X PT&/FAMILY 30 MINUTES 06/16/2013 37856 US P ELVIC COMPL (REFLEX CPT- 62905) 07/01/2013 25961 CMP 07/15/2013 03342 LIPI D PANEL 07/15/2013 02877 TSH 07/15/2013 11567 CBC 07/15/2013 12521 CRP HS (CARDIO) 07/15/2013 19847 PSYT X PT&/FAMILY 45 MINUTES 07/20/2013 2000F BLOO D PRESSURE CHECK 09/08/2013 93976 PSYT X PT&/FAMILY 45 MINUTES 09/20/2013 40564 PSYT X PT&/FAMILY 45 MINUTES 11/09/[address] A BDOMEN W/ AND W/O CONTRAST 12/22/2013 05793 LIPASE 12/22/2013 59512 CBC 12/22/2013 [id number] GF R CALC (RESULT ONLY) 12/22/2013 38948 CMP 12/22/2013 81693 A1C (IN-HOUSE) 03/07/2014 79191 URIN E DRUG SCREEN (IN-HOUSE) 03/14/2014 13735 UA L ALFREDO DIP 04/07/2014 Results Test Result Range Complete blood count (CBC) with automate d white blood cell (WBC) differential - 03/24/16 08:50 Blood leukocytes automated count (number/volume) 6.5 10*3/uL 4.3-11.0 Blood erythrocytes automated count (number/volume) 5.23 10*6/uL 4.35-5.85 Venous blood hemoglobin measurement (mass/volume) 14.6 g/dL 11.5-16.0 Blood hematocrit (volume fraction) 43 % 35-52 Automated erythrocyte mean corpuscular volume 82 [ foz_us] 80-99 Automated erythrocyte mean corpuscular h emoglobin (mass per erythrocyte) 28 pg 25-34 Automated erythrocyte mean corpuscular h emoglobin concentration measurement (mass/volume) 34 g/dL 32-36 Automated erythrocyte distribution width ratio 13. 0 % 10.0- 14.5 Automated blood platelet count (count/volume) 190 10*3/uL [...] 10*3 1.0-4.0 Blood monocytes automated count (number/volume) 0. 5 10*3 0.0-1.0 Automated eosinophil count 0.1 10*3/uL 0 .0-0.3 Automated blood basophil count (count/volume) 0.0 10*3/uL 0.0-0.1 Complete urinalysis with reflex to cultu re - 03/24/16 08:50 Urine color determination YELLOW NRG Urine clarity determination CLEAR NR G Urine pH measurement by test strip 6 5-9 Specific gravity of urine by test strip 1.015 1.016-1.022 Urine protein assay by test strip, semi-quantitative 1+ NEGATIVE Urine glucose detection by automated test strip NE GATIVE NEGATIVE Erythrocytes detection in urine sediment by light micr oscopy 5+ NEGATIVE Urine ketones detection by automated test strip NE GATIVE NEGATIVE Urine nitrite detection by test strip NEGATIVE NEGATIVE Urine total bilirubin detection by test strip NEGA TIVE NEGATIVE Urine urobilinogen measurement by automated test strip (mass/volume) NORMAL NORMAL Urine leukocyte esterase detection by dipstick 1+ NEGATIVE Automated urine sediment erythrocyte cou nt by microscopy (number/high power field) [HPF] NRG Automated urine sediment leukocyte count by microscopy (number/high power field) [HPF] NRG Bacteria detection in urine sediment by light microsco py NEGATIVE NRG Squamous epithelial cells detection in u rine sediment by light microscopy NONE NRG Crystals detection in urine sediment by light microsco py NONE NRG Casts detection in urine sediment [...] 5-14 Serum or plasma urea nitrogen measurement (mass/volume ) 10 mg/dL 7-18 Serum or plasma creatinine measurement (mass/volume) 0.82 mg/dL 0.60-1.30 Serum or plasma urea nitrogen/creatinine mass ratio 12 NRG Serum or plasma creatinine measurement w ith calculation of estimated glomerular filtration rate > NRG Serum or plasma glucose measurement (mass/volume) 108 mg/dL 70-105 Serum or plasma calcium measurement (mass/volume) 9.9 mg/dL 8.5-10.1 Serum or plasma total bilirubin measurement (mass/volu me) 0.3 mg/dL 0.1-1.0 Serum or plasma alkaline phosphatase linda surement (enzymatic activity/volume) 69 U/L 40-136 Serum or plasma aspartate aminotransfera se measurement (enzymatic activity/volume) 12 U/L 5-34 Serum or plasma alanine aminotransferase measurement (enzymatic activity/volume) 12 U/L 0-55 Serum or plasma protein measurement (mass/volume) 7.5 g/dL 6.4-8.2 Serum or plasma albumin measurement (mass/volume) 4.4 g/dL 3.2-4.5 Magnesium - 03/24/16 08:50 Magnesium 2.1 mg/dL 1.8-2.4 Urine drug screening test - 03/24/16 08: 50 Urine phencyclidine detection by screening method NEGATIVE NEGATIVE Urine benzodiazepines detection by screening method POSITIVE NEGATIVE Urine cocaine detection NEGATIVE NEGATI VE Urine amphetamines detection by screening method N EGATIVE NEGATIVE Urine methamphetamine detection by screening method NEGATIVE NEGATIVE Urine cannabinoids detection by screening method N EGATIVE NEGATIVE Urine opiates detection by screening method POSITI VE NEGATIVE Urine barbiturates detection NEGATIVE N EGATIVE Screening urine tricyclic antidepressants detection POSITIVE NEGATIVE Urine methadone detection by screening method NEGA TIVE NEGATIVE Urine oxycodone detection NEGATIVE NEGA TIVE Urine propoxyphene detection NEGATIVE N EGATIVE Urine buprenophrine screen NEGATIVE NEG ATIVE Urine Culture, Routine - 04/17/16 18:18 Urine Culture, Routine Note Urine Culture, Routine - 05/27/16 18:19 Urine Culture, Routine Note Complete urinalysis with reflex to cultu re - 06/07/16 12:32 Urine color determination YELLOW NRG Urine clarity determination SLIGHTLY CLOUDY NRG Urine pH measurement by test strip 7 5-9 Specific gravity of urine by test strip 1.010 1.016-1.022 Urine protein assay by test strip, semi-quantitative NEGATIVE NEGATIVE Urine glucose detection by automated test strip NE GATIVE NEGATIVE Erythrocytes detection in urine sediment by light micr oscopy 3+ NEGATIVE Urine ketones detection by automated test strip NE GATIVE NEGATIVE Urine nitrite detection by test strip NEGATIVE NEGATIVE Urine total bilirubin detection by test strip NEGA TIVE NEGATIVE Urine urobilinogen measurement by automated test strip (mass/volume) NORMAL NORMAL Urine leukocyte esterase detection by dipstick 1+ NEGATIVE Automated urine sediment erythrocyte cou nt by microscopy (number/high power field) [HPF] NRG Automated urine sediment leukocyte count by microscopy (number/high power field) RARE NRG Bacteria detection in urine sediment by light microsco py NEGATIVE NRG Squamous epithelial cells detection in u rine sediment by light microscopy 2-5 NRG Crystals detection in urine sediment by light microsco py NONE NRG Casts detection in urine sediment by light microscopy NONE NRG Mucus detection in urine sediment by light microscopy NEGATIVE NRG Complete urinalysis with reflex to culture NO NRG Complete blood count (CBC) with automate d white blood cell (WBC) differential - 06/07/16 13:20 Blood leukocytes automated count (number/volume) 4.7 10*3/uL 4.3-11.0 Blood erythrocytes automated count (number/volume) 4.85 10*6/uL 4.35-5.85 Venous blood hemoglobin measurement (mass/volume) 13.4 g/dL 11.5-16.0 Blood hematocrit (volume fraction) 40 % 35-52 Automated erythrocyte mean corpuscular volume 83 [ foz_us] 80-99 Automated erythrocyte mean corpuscular h emoglobin (mass per erythrocyte) 28 pg 25-34 Automated erythrocyte mean corpuscular h emoglobin concentration measurement (mass/volume) 33 g/dL 32-36 Automated erythrocyte distribution width ratio 12. 6 % 10.0- 14.5 Automated blood platelet count (count/volume) 190 10*3/uL [...] 10*3 1.0-4.0 Blood monocytes automated count (number/volume) 0. 4 10*3 0.0-1.0 Automated eosinophil count 0.1 10*3/uL 0 .0-0.3 Automated blood basophil count (count/volume) 0.0 10*3/uL 0.0-0.1 Comprehensive metabolic panel - 06/07/16 13:20 Serum or plasma sodium measurement (moles/volume) 139 mmol/L 135-145 Serum or plasma potassium measurement (moles/volume) 3.7 mmol/L 3.6-5.0 Serum or plasma chloride measurement (moles/volume) 106 mmol/L 98-107 Carbon dioxide 20 mmol/L 21-32 Serum or plasma anion gap determination (moles/volume) 13 mmol/L 5-14 Serum or plasma urea nitrogen measurement (mass/volume ) 9 mg/dL 7-18 Serum or plasma creatinine measurement (mass/volume) 0.82 mg/dL 0.60-1.30 Serum or plasma urea nitrogen/creatinine mass ratio 11 NRG Serum or plasma creatinine measurement w ith calculation of estimated glomerular filtration rate > NRG Serum or plasma glucose measurement (mass/volume) 108 mg/dL 70-105 Serum or plasma calcium measurement (mass/volume) 9.1 mg/dL 8.5-10.1 Serum or plasma total bilirubin measurement (mass/volu me) 0.3 mg/dL 0.1-1.0 Serum or plasma alkaline phosphatase linda surement (enzymatic activity/volume) 77 U/L 40-136 Serum or plasma aspartate aminotransfera se measurement (enzymatic activity/volume) 25 U/L 5-34 Serum or plasma alanine aminotransferase measurement (enzymatic activity/volume) 38 U/L 0-55 Serum or plasma protein measurement (mass/volume) 6.7 g/dL 6.4-8.2 Serum or plasma albumin measurement (mass/volume) 4.1 g/dL 3.2-4.5 Methicillin resistant Staphylococcus aur eus (MRSA) screening culture - 06/11/16 06:30 Methicillin resistant Staphylococcus aureus (MRSA) scr eening culture NEG NRG Comp. Metabolic Panel (14) - 08/13/16 13 :57 Glucose, Serum 101 mg/dL 65-99 BUN 11 [...] uIU/mL 0.450-4.500 Complete urinalysis with reflex to cultu re - 02/23/17 14:16 Urine color determination YELLOW NRG Urine clarity determination CLEAR NR G Urine pH measurement by test strip 5 5-9 Specific gravity of urine by test strip 1.020 1.016-1.022 Urine protein assay by test strip, semi-quantitative 3+ NEGATIVE Urine glucose detection by automated test strip NE GATIVE NEGATIVE Erythrocytes detection in urine sediment by light micr oscopy 5+ NEGATIVE Urine ketones detection by automated test strip NE GATIVE NEGATIVE Urine nitrite detection by test strip POSITIVE NEGATIVE Urine total bilirubin detection by test strip NEGA TIVE NEGATIVE Urine urobilinogen measurement by automated test strip (mass/volume) NORMAL NORMAL Urine leukocyte esterase detection by dipstick 2+ NEGATIVE Automated urine sediment erythrocyte cou nt by microscopy (number/high power field) TNTC NRG Automated urine sediment leukocyte count by microscopy (number/high power field) [HPF] NRG Bacteria detection in urine sediment by light microsco py NEGATIVE NRG Squamous epithelial cells detection in u rine sediment by light microscopy NONE NRG Crystals detection in urine sediment by light microsco py NONE NRG Casts detection in urine sediment by light microscopy NONE NRG Mucus detection in urine sediment by light microscopy NEGATIVE NRG Complete urinalysis with reflex to culture YES NRG Bacterial urine culture - 02/23/17 14:16 URINE CULTURE RESULTS <10,000/ML NR Comp. Metabolic Panel (14) - 03/24/17 14 :30 Glucose, Serum 98 mg/dL 65-99 BUN 14 [...] - 10/06/17 10:29 VITAMIN D,25-OH,TOTAL,IA 15 ng/mL 30-10 0 Complete urinalysis with reflex to cultu re - 12/22/17 18:05 Urine color determination YELLOW NRG Urine clarity determination VERY CLOUDY NRG Urine pH measurement by test strip 5 5-9 Specific gravity of urine by test strip 1.015 1.016-1.022 Urine protein assay by test strip, semi-quantitative 3+ NEGATIVE Urine glucose detection by automated test strip NE GATIVE NEGATIVE Erythrocytes detection in urine sediment by light micr oscopy 5+ NEGATIVE Urine ketones detection by automated test strip NE GATIVE NEGATIVE Urine nitrite detection by test strip NEGATIVE NEGATIVE Urine total bilirubin detection by test strip NEGA TIVE NEGATIVE Urine urobilinogen measurement by automated test strip (mass/volume) NORMAL NORMAL Urine leukocyte esterase detection by dipstick 2+ NEGATIVE Automated urine sediment erythrocyte cou nt by microscopy (number/high power field) TNTC NRG Automated urine sediment leukocyte count by microscopy (number/high power field) [HPF] NRG Bacteria detection in urine sediment by light microsco py NONE NRG Squamous epithelial cells detection in u rine sediment by light microscopy 5-10 NRG Crystals detection in urine sediment by light microsco py NONE NRG Casts detection in urine sediment by light microscopy NONE NRG Mucus detection in urine sediment by light microscopy NEGATIVE NRG Complete urinalysis with reflex to culture YES NRG Bacterial urine culture - 12/22/17 18:05 Bacterial urine culture SEE COMMEN NRG COLONY COUNT . NRG Complete blood count (CBC) with automate d white blood cell (WBC) differential - 12/22/17 18:19 Blood leukocytes automated count (number/volume) 6.1 10*3/uL 4.3-11.0 Blood erythrocytes automated count (number/volume) 4.61 10*6/uL 4.35-5.85 Venous blood hemoglobin measurement (mass/volume) 13.6 g/dL 11.5-16.0 Blood hematocrit (volume fraction) 39 % 35-52 Automated erythrocyte mean corpuscular volume 84 [ foz_us] 80-99 Automated erythrocyte mean corpuscular h emoglobin (mass per erythrocyte) 30 pg 25-34 Automated erythrocyte mean corpuscular h emoglobin concentration measurement (mass/volume) 35 g/dL 32-36 Automated erythrocyte distribution width ratio 12. 3 % 10.0- 14.5 Automated blood platelet count (count/volume) 172 10*3/uL [...] 10*3 1.0-4.0 Blood monocytes automated count (number/volume) 0. 4 10*3 0.0-1.0 Automated eosinophil count 0.2 10*3/uL 0 .0-0.3 Automated blood basophil count (count/volume) 0.0 10*3/uL 0.0-0.1 Comprehensive metabolic panel - 12/22/17 18:19 Serum or plasma sodium measurement (moles/volume) 139 mmol/L 135-145 Serum or plasma potassium measurement (moles/volume) 4.2 mmol/L 3.6-5.0 Serum or plasma chloride measurement (moles/volume) 106 mmol/L 98-107 Carbon dioxide 26 mmol/L 21-32 Serum or plasma anion gap determination (moles/volume) 7 mmol/L 5-14 Serum or plasma urea nitrogen measurement (mass/volume ) 15 mg/dL 7-18 Serum or plasma creatinine measurement (mass/volume) 0.91 mg/dL 0.60-1.30 Serum or plasma urea nitrogen/creatinine mass ratio 16 NRG Serum or plasma creatinine measurement w ith calculation of estimated glomerular filtration rate > NRG Serum or plasma glucose measurement (mass/volume) 100 mg/dL 70-105 Serum or plasma calcium measurement (mass/volume) 9.6 mg/dL 8.5-10.1 Serum or plasma total bilirubin measurement (mass/volu me) 0.4 mg/dL 0.1-1.0 Serum or plasma alkaline phosphatase linda surement (enzymatic activity/volume) 56 U/L 40-136 Serum or plasma aspartate aminotransfera se measurement (enzymatic activity/volume) 14 U/L 5-34 Serum or plasma alanine aminotransferase measurement (enzymatic activity/volume) 15 U/L 0-55 Serum or plasma protein measurement (mass/volume) 7.8 g/dL 6.4-8.2 Serum or plasma albumin measurement (mass/volume) 4.4 g/dL 3.2-4.5 Lipase - 12/22/17 18:19 Lipase 24 U/L 8-78 Complete urinalysis with reflex to cultu re - 12/25/17 19:43 Urine color determination YELLOW NRG Urine clarity determination SLIGHTLY CLOUDY NRG Urine pH measurement by test strip 6.5 5-9 Specific gravity of urine by test strip 1.010 1.016-1.022 Urine protein assay by test strip, semi-quantitative 3+ NEGATIVE Urine glucose detection by automated test strip NE GATIVE NEGATIVE Erythrocytes detection in urine sediment by light micr oscopy 5+ NEGATIVE Urine ketones detection by automated test strip NE GATIVE NEGATIVE Urine nitrite detection by test strip NEGATIVE NEGATIVE Urine total bilirubin detection by test strip NEGA TIVE NEGATIVE Urine urobilinogen measurement by automated test strip (mass/volume) NORMAL NORMAL Urine leukocyte esterase detection by dipstick 3+ NEGATIVE Automated urine sediment erythrocyte cou nt by microscopy (number/high power field) [HPF] NRG Automated urine sediment leukocyte count by microscopy (number/high power field) [HPF] NRG Bacteria detection in urine sediment by light microsco py TRACE NRG Squamous epithelial cells detection in u rine sediment by light microscopy 2-5 NRG Crystals detection in urine sediment by light microsco py NONE NRG Casts detection in urine sediment by light microscopy NONE NRG Mucus detection in urine sediment by light microscopy NEGATIVE NRG Complete urinalysis with reflex to culture YES NRG Complete blood count (CBC) with automate d white blood cell (WBC) differential - 12/25/17 19:43 Blood leukocytes automated count (number/volume) 6.0 10*3/uL 4.3-11.0 Blood erythrocytes automated count (number/volume) 4.51 10*6/uL 4.35-5.85 Venous blood hemoglobin measurement (mass/volume) 12.8 g/dL 11.5-16.0 Blood hematocrit (volume fraction) 38 % 35-52 Automated erythrocyte mean corpuscular volume 84 [ foz_us] 80-99 Automated erythrocyte mean corpuscular h emoglobin (mass per erythrocyte) 28 pg 25-34 Automated erythrocyte mean corpuscular h emoglobin concentration measurement (mass/volume) 34 g/dL 32-36 Automated erythrocyte distribution width ratio 12. 7 % 10.0- 14.5 Automated blood platelet count (count/volume) 187 10*3/uL [...] 10*3 1.0-4.0 Blood monocytes automated count (number/volume) 0. 5 10*3 0.0-1.0 Automated eosinophil count 0.2 10*3/uL 0 .0-0.3 Automated blood basophil count (count/volume) 0.0 10*3/uL 0.0-0.1 Whole blood basic metabolic panel - 11/30 12/16 19:43 Serum or plasma sodium measurement (moles/volume) 141 mmol/L 135-145 Serum or plasma potassium measurement (moles/volume) 3.8 mmol/L 3.6-5.0 Serum or plasma chloride measurement (moles/volume) 105 mmol/L 98-107 Carbon dioxide 26 mmol/L 21-32 Serum or plasma anion gap determination (moles/volume) 10 mmol/L 5-14 Serum or plasma urea nitrogen measurement (mass/volume ) 10 mg/dL 7-18 Serum or plasma creatinine measurement (mass/volume) 0.95 mg/dL 0.60-1.30 Serum or plasma urea nitrogen/creatinine mass ratio 11 NRG Serum or plasma creatinine measurement w ith calculation of estimated glomerular filtration rate > NRG Serum or plasma glucose measurement (mass/volume) 111 mg/dL 70-105 Serum or plasma calcium measurement (mass/volume) 9.8 mg/dL 8.5-10.1 Bacterial urine culture - 12/25/17 19:43 Bacterial urine culture SEE COMMEN NRG COLONY COUNT . NRG Methicillin resistant Staphylococcus aur eus (MRSA) screening culture - 12/29/17 06:35 Methicillin resistant Staphylococcus aureus (MRSA) scr eening culture NEG NRG Complete blood count (CBC) with automate d white blood cell (WBC) differential - 12/29/17 18:15 Blood leukocytes automated count (number/volume) 13.1 10*3/uL 4.3-11.0 Blood erythrocytes automated count (number/volume) 5.23 10*6/uL 4.35-5.85 Venous blood hemoglobin measurement (mass/volume) 14.7 g/dL 11.5-16.0 Blood hematocrit (volume fraction) 43 % 35-52 Automated erythrocyte mean corpuscular volume 82 [ foz_us] 80-99 Automated erythrocyte mean corpuscular h emoglobin (mass per erythrocyte) 28 pg 25-34 Automated erythrocyte mean corpuscular h emoglobin concentration measurement (mass/volume) 34 g/dL 32-36 Automated erythrocyte distribution width ratio 13. 0 % 10.0- 14.5 Automated blood platelet count (count/volume) 243 10*3/uL [...] 10*3 1.0-4.0 Blood monocytes automated count (number/volume) 0. 6 10*3 0.0-1.0 Automated eosinophil count 0.0 10*3/uL 0 .0-0.3 Automated blood basophil count (count/volume) 0.0 10*3/uL 0.0-0.1 Comprehensive metabolic panel - 12/29/17 18:15 Serum or plasma sodium measurement (moles/volume) 138 mmol/L 135-145 Serum or plasma potassium measurement (moles/volume) 4.2 mmol/L 3.6-5.0 Serum or plasma chloride measurement (moles/volume) 102 mmol/L 98-107 Carbon dioxide 22 mmol/L 21-32 Serum or plasma anion gap determination (moles/volume) 14 mmol/L 5-14 Serum or plasma urea nitrogen measurement (mass/volume ) 13 mg/dL 7-18 Serum or plasma creatinine measurement (mass/volume) 1.20 mg/dL 0.60-1.30 Serum or plasma urea nitrogen/creatinine mass ratio 11 NRG Serum or plasma creatinine measurement w ith calculation of estimated glomerular filtration rate 48 NRG Serum or plasma glucose measurement (mass/volume) 175 mg/dL 70-105 Serum or plasma calcium measurement (mass/volume) 10.5 mg/dL 8.5-10.1 Serum or plasma total bilirubin measurement (mass/volu me) 0.5 mg/dL 0.1-1.0 Serum or plasma alkaline phosphatase lnida surement (enzymatic activity/volume) 73 U/L 40-136 Serum or plasma aspartate aminotransfera se measurement (enzymatic activity/volume) 30 U/L 5-34 Serum or plasma alanine aminotransferase measurement (enzymatic activity/volume) 37 U/L 0-55 Serum or plasma protein measurement (mass/volume) 8.3 g/dL 6.4-8.2 Serum or plasma albumin measurement (mass/volume) 4.8 g/dL 3.2-4.5 Serum or plasma amylase measurement (enz ymatic activity/volume) - 12/29/17 18:15 Serum or plasma amylase measurement (enzymatic activit y/volume) 48 U/L 25-125 Lipase - 12/29/17 18:15 Lipase 13 U/L 8-78 Complete urinalysis with reflex to cultu re - 12/29/17 18:24 Urine color determination YELLOW NRG Urine clarity determination CLEAR NR G Urine pH measurement by test strip 7 5-9 Specific gravity of urine by test strip 1.010 1.016-1.022 Urine protein assay by test strip, semi-quantitative 3+ NEGATIVE Urine glucose detection by automated test strip 1+ NEGATIVE Erythrocytes detection in urine sediment by light micr oscopy 5+ NEGATIVE Urine ketones detection by automated test strip NE GATIVE NEGATIVE Urine nitrite detection by test strip NEGATIVE NEGATIVE Urine total bilirubin detection by test strip NEGA TIVE NEGATIVE Urine urobilinogen measurement by automated test strip (mass/volume) NORMAL NORMAL Urine leukocyte esterase detection by dipstick 2+ NEGATIVE Automated urine sediment erythrocyte cou nt by microscopy (number/high power field) TNTC NRG Automated urine sediment leukocyte count by microscopy (number/high power field) [HPF] NRG Bacteria detection in urine sediment by light microsco py TRACE NRG Squamous epithelial cells detection in u rine sediment by light microscopy 5-10 NRG Crystals detection in urine sediment by light microsco py NONE NRG Casts detection in urine sediment by light microscopy NONE NRG Mucus detection in urine sediment by light microscopy NEGATIVE NRG Complete urinalysis with reflex to culture NO NRG SUREPATH PAP(REFL)H/L HPV - 08/16/18 15: 11 CLINICAL INFORMATION: NRG LMP: NRG PREV. PAP: NRG PREV. BX: NRG SOURCE: NRG STATEMENT OF ADEQUACY: NRG INTERPRETATION/RESULT: NRG TURKEY PINNER: NRG COMMENT NRG Serum or plasma C reactive protein measu rement (mass/volume) - 07/15/19 06:43 Serum or plasma C reactive protein measurement (mass/v olume) 0.14 mg/dL 0.00-0.50 Complete blood count (CBC) with automate d white blood cell (WBC) differential - 07/15/19 06:47 Blood leukocytes automated count (number/volume) 7.1 10*3/uL 4.3-11.0 Blood erythrocytes automated count (number/volume) 5.02 10*6/uL 4.35-5.85 Venous blood hemoglobin measurement (mass/volume) 14.2 g/dL 11.5-16.0 Blood hematocrit (volume fraction) 42 % 35-52 Automated erythrocyte mean corpuscular volume 84 [ foz_us] 80-99 Automated erythrocyte mean corpuscular h emoglobin (mass per erythrocyte) 28 pg 25-34 Automated erythrocyte mean corpuscular h emoglobin concentration measurement (mass/volume) 34 g/dL 32-36 Automated erythrocyte distribution width ratio 12. 9 % 10.0- 14.5 Automated blood platelet count (count/volume) 212 10*3/uL 130-400 Automated blood platelet mean volume measurement 10.6 [foz_us] 7.4-10.4 Automated blood neutrophils/100 leukocytes 46 % 42-75 Automated blood lymphocytes/100 leukocytes 43 % 12-44 Blood monocytes/100 leukocytes 9 % 0-12 Automated blood eosinophils/100 leukocytes 2 % 0-10 Automated blood basophils/100 leukocytes 0 % 0-10 Blood neutrophils automated count (number/volume) 3.3 10*3 1.8-7.8 Blood lymphocytes automated count (number/volume) 3.0 10*3 1.0-4.0 Blood monocytes automated count (number/volume) 0. 6 10*3 0.0-1.0 Automated eosinophil count 0.1 10*3/uL 0 .0-0.3 Automated blood basophil count (count/volume) 0.0 10*3/uL 0.0-0.1 PT panel in platelet poor plasma by coag ulation assay - 07/15/19 06:47 Prothrombin time (PT) in platelet poor plasma by coagu lation assay 13.2 s 12.2-14.7 INR in platelet poor plasma or blood by coagulation as say 1.0 0.8-1.4 Activated partial thromboplastin time (a PTT) in platelet poor plasma bycoagulation assay - 07/15/19 06:47 Activated partial thromboplastin time (a PTT) in platelet poor plasma bycoagulation assay 31 s 24-35 Comprehensive metabolic panel - 07/15/19 06:47 Serum or plasma sodium measurement (moles/volume) 136 mmol/L 135-145 Serum or plasma potassium measurement (moles/volume) 4.7 mmol/L 3.6-5.0 Serum or plasma chloride measurement (moles/volume) 107 mmol/L 98-107 Carbon dioxide 19 mmol/L 21-32 Serum or plasma anion gap determination (moles/volume) 10 mmol/L 5-14 Serum or plasma urea nitrogen measurement (mass/volume ) 13 mg/dL 7-18 Serum or plasma creatinine measurement (mass/volume) 1.07 mg/dL 0.60-1.30 Serum or plasma urea nitrogen/creatinine mass ratio 12 NRG Serum or plasma creatinine measurement w ith calculation of estimated glomerular filtration rate 54 NRG Serum or plasma glucose measurement (mass/volume) 106 mg/dL 70-105 Serum or plasma calcium measurement (mass/volume) 9.5 mg/dL 8.5-10.1 Serum or plasma total bilirubin measurement (mass/volu me) 0.3 mg/dL 0.1-1.0 Serum or plasma alkaline phosphatase linda surement (enzymatic activity/volume) 55 U/L 40-136 Serum or plasma aspartate aminotransfera se measurement (enzymatic activity/volume) 18 U/L 5-34 Serum or plasma alanine aminotransferase measurement (enzymatic activity/volume) 12 U/L 0-55 Serum or plasma protein measurement (mass/volume) 7.9 g/dL 6.4-8.2 Serum or plasma albumin measurement (mass/volume) 4.3 g/dL 3.2-4.5 CALCIUM CORRECTED 9.3 mg/dL 8.5-10.1 Magnesium - 0214/20 06:47 Magnesium 2.1 mg/dL 1.6-2.4 Myoglobin, serum - 07/15/19 06:47 Myoglobin, serum 18.6 ng/mL 10.0-92.0 Serum or plasma troponin i.cardiac measu rement (mass/volume) - 07/15/19 06:47 Serum or plasma troponin i.cardiac measurement (mass/v olume) < ng/mL <0.028 Complete urinalysis with reflex to cultu re - 07/15/19 07:05 Urine color determination YELLOW NRG Urine clarity determination CLEAR NR G Urine pH measurement by test strip 6.5 5-9 Specific gravity of urine by test strip <= 1.016-1.022 Urine protein assay by test strip, semi-quantitative NEGATIVE NEGATIVE Urine glucose detection by automated test strip NE GATIVE NEGATIVE Erythrocytes detection in urine sediment by light micr oscopy 3+ NEGATIVE Urine ketones detection by automated test strip NE GATIVE NEGATIVE Urine nitrite detection by test strip NEGATIVE NEGATIVE Urine total bilirubin detection by test strip NEGA TIVE NEGATIVE Urine urobilinogen measurement by automated test strip (mass/volume) 0.2 mg/dL < = 1.0 Urine leukocyte esterase detection by dipstick TRA CE NEGATIVE Automated urine sediment erythrocyte cou nt by microscopy (number/high power field) [HPF] NRG Automated urine sediment leukocyte count by microscopy (number/high power field) [HPF] NRG Bacteria detection in urine sediment by light microsco py NEGATIVE NRG Squamous epithelial cells detection in u rine sediment by light microscopy 0-2 NRG Crystals detection in urine sediment by light microsco py NONE NRG Casts detection in urine sediment by light microscopy NONE NRG Mucus detection in urine sediment by light microscopy NEGATIVE NRG Complete urinalysis with reflex to culture NO NRG Urine drug screening test - 07/15/19 07: 05 Urine phencyclidine detection by screening method NEGATIVE NEGATIVE Urine benzodiazepines detection by screening method POSITIVE NEGATIVE Urine cocaine detection NEGATIVE NEGATI VE Urine amphetamines detection by screening method N EGATIVE NEGATIVE Urine methamphetamine detection by screening method NEGATIVE NEGATIVE Urine cannabinoids detection by screening method N EGATIVE NEGATIVE Urine opiates detection by screening method NEGATI VE NEGATIVE Urine barbiturates detection NEGATIVE N EGATIVE Screening urine tricyclic antidepressants detection POSITIVE NEGATIVE Urine methadone detection by screening method NEGA TIVE NEGATIVE Urine oxycodone detection NEGATIVE NEGA TIVE Urine propoxyphene detection NEGATIVE N EGATIVE Serum or plasma thyrotropin measurement by detection limit <=0.05 miu/l (units/volume) - 07/15/19 07:05 Serum or plasma thyrotropin measurement by detection limit <=0.05 miu/l (units/volume) 4.02 u[iU]/mL 0.35-4.94 Serum or plasma troponin i.cardiac measu rement (mass/volume) - 07/15/19 08:50 Serum or plasma troponin i.cardiac measurement (mass/v olume) < ng/mL <0.028 SUREPATH PAP - 10/28/19 12:18 CLINICAL INFORMATION: NRG LMP: NRG PREV. PAP: NRG PREV. BX: NRG SOURCE: Vagina NRG STATEMENT OF ADEQUACY: NRG INTERPRETATION/RESULT: NRG TURKEY PINNER: NRG COMMENT NRG Complete urinalysis with reflex to cultu re - 01/01/20 19:16 Urine color determination YELLOW NRG Urine clarity determination CLEAR NR G Urine pH measurement by test strip 7.0 5-9 Specific gravity of urine by test strip 1.015 1.016-1.022 Urine protein assay by test strip, semi-quantitative NEGATIVE NEGATIVE Urine glucose detection by automated test strip NE GATIVE NEGATIVE Erythrocytes detection in urine sediment by light micr oscopy NEGATIVE NEGATIVE Urine ketones detection by automated test strip NE GATIVE NEGATIVE Urine nitrite detection by test strip NEGATIVE NEGATIVE Urine total bilirubin detection by test strip NEGA TIVE NEGATIVE Urine urobilinogen measurement by automated test strip (mass/volume) 0.2 mg/dL < = 1.0 Urine leukocyte esterase detection by dipstick TRA CE NEGATIVE Automated urine sediment erythrocyte cou nt by microscopy (number/high power field) NONE NRG Automated urine sediment leukocyte count by microscopy (number/high power field) [HPF] NRG Bacteria detection in urine sediment by light microsco py FEW NRG Crystals detection in urine sediment by light microsco py NONE NRG Casts detection in urine sediment by light microscopy NONE NRG Mucus detection in urine sediment by light microscopy NEGATIVE NRG Complete urinalysis with reflex to culture YES NRG Bacterial urine culture - 01/01/20 19:16 Bacterial urine culture 3 OR MORE NRG COLONY COUNT <10,000 NRG SUSCEPTIBILITY (GRAM POSITIVE) SUGGESTING PROBABLE NRG MRSA SCREEN COLLECTION CONTAMINATION WITH SKIN NRG RAPID ID ISABEL. NO SUSCEPTIBILITY PERFORMED NR Complete blood count (CBC) with automate d white blood cell (WBC) differential - 01/01/20 19:28 Blood leukocytes automated count (number/volume) 8.0 10*3/uL 4.3-11.0 Blood erythrocytes automated count (number/volume) 5.08 10*6/uL 4.35-5.85 Venous blood hemoglobin measurement (mass/volume) 14.5 g/dL 11.5-16.0 Blood hematocrit (volume fraction) 42 % 35-52 Automated erythrocyte mean corpuscular volume 83 [ foz_us] 80-99 Automated erythrocyte mean corpuscular h emoglobin (mass per erythrocyte) 29 pg 25-34 Automated erythrocyte mean corpuscular h emoglobin concentration measurement (mass/volume) 35 g/dL 32-36 Automated erythrocyte distribution width ratio 12. 6 % 10.0- 14.5 Automated blood platelet count (count/volume) 237 10*3/uL 130-400 Automated blood platelet mean volume measurement 10.9 [foz_us] 7.4-10.4 Automated blood neutrophils/100 leukocytes 46 % 42-75 Automated blood lymphocytes/100 leukocytes 42 % 12-44 Blood monocytes/100 leukocytes 9 % 0-12 Automated blood eosinophils/100 leukocytes 3 % 0-10 Automated blood basophils/100 leukocytes 0 % 0-10 Blood neutrophils automated count (number/volume) 3.7 10*3 1.8-7.8 Blood lymphocytes automated count (number/volume) 3.3 10*3 1.0-4.0 Blood monocytes automated count (number/volume) 0. 7 10*3 0.0-1.0 Automated eosinophil count 0.2 10*3/uL 0 .0-0.3 Automated blood basophil count (count/volume) 0.0 10*3/uL 0.0-0.1 Comprehensive metabolic panel - 01/01/20 19:28 Serum or plasma sodium measurement (moles/volume) 138 mmol/L 135-145 Serum or plasma potassium measurement (moles/volume) 3.8 mmol/L 3.6-5.0 Serum or plasma chloride measurement (moles/volume) 107 mmol/L 98-107 Carbon dioxide 18 mmol/L 21-32 Serum or plasma anion gap determination (moles/volume) 13 mmol/L 5-14 Serum or plasma urea nitrogen measurement (mass/volume ) 10 mg/dL 7-18 Serum or plasma creatinine measurement (mass/volume) 1.00 mg/dL 0.60-1.30 Serum or plasma urea nitrogen/creatinine mass ratio 10 NRG Serum or plasma creatinine measurement w ith calculation of estimated glomerular filtration rate 59 NRG Serum or plasma glucose measurement (mass/volume) 106 mg/dL 70-105 Serum or plasma calcium measurement (mass/volume) 9.4 mg/dL 8.5-10.1 Serum or plasma total bilirubin measurement (mass/volu me) 0.5 mg/dL 0.1-1.0 Serum or plasma alkaline phosphatase linda surement (enzymatic activity/volume) 54 U/L 40-136 Serum or plasma aspartate aminotransfera se measurement (enzymatic activity/volume) 13 U/L 5-34 Serum or plasma alanine aminotransferase measurement (enzymatic activity/volume) 13 U/L 0-55 Serum or plasma protein measurement (mass/volume) 7.6 g/dL 6.4-8.2 Serum or plasma albumin measurement (mass/volume) 4.4 g/dL 3.2-4.5 CALCIUM CORRECTED 9.1 mg/dL 8.5-10.1 Magnesium - 01/01/20 19:28 Magnesium 2.1 mg/dL 1.6-2.4 Serum or plasma amylase measurement (enz ymatic activity/volume) - 01/01/20 19:28 Serum or plasma amylase measurement (enzymatic activit y/volume) 66 U/L 25-125 Lipase - 01/01/20 19:28 Lipase 35 U/L 8-78 Encounters ACCT No. Visit Date/Time Discharge Status Pt. Type Provider Facility Loc./Unit Complaint [id number] 08/14/2016 10:09:00 Document Registration [id number] 04/21/2016 05:05:00 Document Registration [id number] 03/25/2017 11:09:00 Document Registration [id number] 09/21/2019 16:00:00 09/21/2019 23:59: 59 CLS [id number] 10/28/2019 10:15:00 Document Registration [id number] 08/16/2018 10:30:00 Document Registration [id number] 10/06/2017 09:40:00 Document Registration [id number] 05/01/2017 13:30:00 Document Registration [id number] 03/24/2017 14:20:00 Document Registration [id number] 05/29/2016 05:05:00 Document Registration [id number] 01/03/2020 13:44:00 15:05:00 DIS Outpatient MARISA HOOK MD Via [facility] PREOP RIGHT PROXIMAL URETERAL STONE [id number] 01/01/2020 19:00:00 21:48:00 DIS Outpatient ZOFIA MORA DO, V [facility] ER DIFICULTY EXHALING,RIB PAIN [id number] 11/14/2019 15:00:00 23:59:59 CLS Preadmit SEALADAM Curry DO, V [facility] RAD SCREENING [id number] 09/10/2019 15:08:00 15:42:00 DIS Emergency TARSHA PARRA COLLAR BASTER Via [facility] ER MUSCLE SPASM IN BACK, [id number] 07/15/2019 06:13:00 10:38:00 DIS Emergency ANGEL MATA MD Via [facility] ER BACK LEG PAIN [id number] 02/04/2018 07:58:00 23:59:59 CLS Outpatient Anshu NEWBERRY MD Via [facility] LAB HYPERLIPIDEMIA [id number] 01/26/2018 08:54:00 13:35:00 DIS Outpatient MARISA HOOK MD Via [facility] SDC LEFT STONE [id number] 01/25/2018 14:46:00 23:59:59 CLS Outpatient MARISA HOOK MD Via [facility] PREOP LEFT STONE [id number] 01/25/2018 13:25:00 23:59:59 CLS Outpatient MARISA HOOK MD Via [facility] RAD LT URETERAL STONE [id number] 01/13/2018 23:35:00 08/17/2 018 15:50:00 DIS Inpatient BRODY ARAYA MD Via [facility] 4TH INTRACTABLE NAUSEA VO MITING [id number] 01/13/2018 10:00:00 018 23:59:59 [facility] [id number] 12/29/2017 16:45:00 018 20:00:00 DIS Emergency PRECIOUS MORA DOA Venkata Vi [facility] ER VOMITING;BP ISSUES [id number] 12/29/2017 05:57:00 018 11:30:00 DIS Outpatient MARISA HOOK MD Via [facility] BILATERAL RENAL STONES [id number] 12/28/2017 05:33:00 018 10:35:00 DIS Outpatient MARISA HOOK MD Via [facility] PREOP BILAT RENAL STONE [id number] 12/25/2017 08:51:00 018 23:59:59 CLS Outpatient MARISA HOOK MD Via [facility] RAD RT RENAL STONE [id number] 12/25/2017 19:24:00 018 21:34:00 DIS Emergency LAURA FINCH APRN Via [facility] ER KIDNEY STONE [id number] 12/22/2017 17:40:00 018 21:32:00 DIS Emergency ANGEL MATA MD Via [facility] ER LOWER BACK PAIN ;ABD PAIN [id number] 10/27/2017 09:22:00 018 12:37:00 DIS Outpatient NETTIE HAHN DO Via [facility] ENDO DIARRHEA [id number] 10/21/2017 12:15:00 018 13:12:00 DIS Outpatient NETTIE HAHN DO [facility] PREOP COLONOSCOPY [id number] 05/01/2017 10:55:00 017 23:59:59 CLS Outpatient Anshu NEWBERRY MD Via [facility] LAB I73.9 E78.5 I10 R00.2 R 06.02 [id number] 04/09/2017 08:02:00 017 23:59:59 CLS Outpatient Anshu NEWBERRY MD Via [facility] CARD R06.02 SOB,I10 HYPERTEN ALISHA [id number] 04/06/2017 10:00:00 017 23:59:59 CLS Outpatient Anshu NEWBERRY MD [facility] CARD E78.5 HYPERLIPIDEMIA,R0 0.2 PLAPITATIONS, [id number] 02/23/2017 12:59:00 017 15:27:00 DIS Emergency ANGEL MATA MD [facility] ER RT LEG PAIN [id number] 07/14/2016 12:57:00 017 15:46:00 DIS Outpatient ARMINDA FLEMING [facility] REHAB THORACIC HNP; D DD; SPONDYLOSIS [id number] 06/11/2016 05:57:00 017 09:50:00 DIS Outpatient MARISA HOOK MD [facility] CPP [id number] 06/10/2016 09:26:00 11:57:00 DIS Outpatient MARISA HOOK MD Via [facility] PREOP CPP [id number] 06/07/2016 12:01:00 14:25:00 DIS Emergency MAYRA QUINONES [facility] ER UTI/BLADDER PAIN [id number] 04/14/2016 13:38:00 23:59:59 CLS Outpatient SABIHA MAST MD [facility] RAD ABNORMAL MAMMO [id number] 03/24/2016 08:44:00 11:12:00 DIS Emergency ZABRINA WOLF MD [facility] ER SEIZURE [id number] 03/03/2016 12:27:00 13:18:00 DIS Outpatient BENJI LOMBARDO MD [facility] CARD DISC DISORDER [id number] 02/15/2016 12:40:00 14:43:00 DIS Outpatient BENJI LOMBARDO MD Via [facility] CARD DISC DISORDER RADICULOP ATHY THORACIC [id number] 02/01/2016 10:48:00 12:16:00 DIS Outpatient BENJI LOMBARDO MD Via [facility] CARD DISC DISORDER/C RADICUO GENOVEVA [id number] 01/03/2016 11:36:00 13:11:00 DIS Emergency ARCHANA SAUCEDO, ROBI Hastings [facility] ER BACK PAIN [id number] 12/06/2015 21:19:00 00:52:00 DIS Emergency LUCIANO SAUCEDO, ZABRINA Cha [facility] ER POSS KIDNEY STO NE [id number] 10/22/2015 13:06:00 15:15:00 DIS Emergency LAURA FINCH APRN [facility] ER LOW BP, BACK PAIN, VAGI NAL DISCOMFORT [id number] 10/13/2015 15:18:00 19:56:00 DIS Emergency ROME SAUCEDO, MAGGIE Curry [facility] ER BACK PAIN, BLOOD IN URI NE, SLUGGISH [id number] 09/12/2015 17:41:00 20:21:00 DIS Emergency MORGAN DE LA TORRE, ZOFIA K Vi [facility] ER BACK PAIN,NAUSEA [id number] 08/03/2015 12:57:00 23:59:59 CLS Outpatient KEZIA SAUCEDO, SABIHA Glaser [facility] RAD SCREENING [id number] 04/09/2015 15:30:00 18:45:00 DIS Emergency LAURA FINCH FIGURE MODEL Via [facility] ER BACK PAIN, NECK PAIN, R ARM PAIN [id number] 02/19/2015 09:08:00 09/21/2 015 23:59:59 CLS Outpatient KEZIA SAUCEDO, SABIHA Glaser [facility] RAD THORACIC DISC HERNIATIO N [id number] 02/09/2015 08:30:00 015 10:27:00 DIS Emergency MORGAN ZOFIA DE LA TORRE Uma a [facility] ER BACK PAIN [id number] 11/30/2014 13:37:00 23:59:59 CLS Outpatient MARISA HOOK MD [facility] RAD STONES [id number] 11/27/2014 16:43:00 19:29:00 DIS Emergency LAURA FINCH APRN Via [facility] ER ABD PAIN,NAUSEA,VOMITIN G [id number] 11/07/2014 05:57:00 015 09:40:00 DIS Outpatient MARISA HOOK MD [facility] SDC LEFT RENAL STONE [id number] 11/03/2014 15:38:00 23:59:59 CLS Outpatient MARISA HOOK MD Via [facility] PREOP LEFT RENAL STONE [id number] 10/30/2014 13:05:00 23:59:59 CLS Outpatient MARISA HOOK MD [facility] RAD STONES [id number] 10/26/2014 16:56:00 015 21:22:00 DIS Emergency MAYRA QUINONES Via [facility] ER DISCOLORED BOWEL [id number] 10/13/2014 17:28:00 015 20:27:00 DIS Emergency LAURA FINCH APRN [facility] ER BACK PAIN [id number] 09/15/2014 17:23:00 015 19:28:00 DIS Emergency ANGEL MATA MD [facility] ER L SIDE PAIN [id number] 09/03/2014 12:35:00 14:32:00 DIS Emergency LAURA FINCH APRN [facility] ER SOA [id number] 07/01/2014 02:39:00 015 05:28:00 DIS Emergency REYNALDO LONDONO DO Via [facility] ER BACK STOMACH PAIN [id number] 06/20/2014 16:01:00 015 20:05:00 DIS Emergency MAYRA QUINONES [facility] ER HEART RACE;NAUSEA;HEAD ACHE [id number] 05/10/2014 16:40:00 20:21:00 DIS Emergency MAYRA QUINONES [facility] ER FALL [id number] 04/11/2014 07:19:00 11:25:00 DIS Emergency ZABRINA WOLF MD [facility] ER SEIZURE [id number] 04/05/2014 11:34:00 13:50:00 DIS Emergency ZABRINA WOLF MD [facility] ER MULTIPLE COMPLA INTS [id number] 03/24/2014 08:55:00 11:40:00 DIS Emergency ROBI MAGAÑA MD [facility] ER SEIZURE [id number] 03/02/2014 10:14:00 12:26:00 DIS Emergency LAURA FINCH APRN [facility] ER ABDOMINAL PAIN/NAUSEA [id number] 02/28/2014 14:26:00 23:59:59 CLS Outpatient MARISA HOOK MD [facility] RAD STONES [id number] 02/18/2014 16:13:00 18:26:00 DIS Emergency ZOFIA MORA DO Vi [facility] ER POST SURGERY BLEEDING [id number] 02/15/2014 06:52:00 12:20:00 DIS Outpatient MARISA HOOK MD [facility] SDC RIGHT STONE [id number] 02/14/2014 07:35:00 23:59:59 CLS Outpatient MARISA HOOK MD [facility] PREOP RIGHT STONE [id number] 01/31/2014 18:09:00 13:40:00 DIS Inpatient SABIHA MAST MD [facility] 4TH ACUTE RENAL FAILURE;HYP OTENSION [id number] 01/21/2014 17:37:00 18:00:00 DIS Emergency MAYRA QUINONES [facility] ER POST SURGERY RASH [id number] 01/12/2014 06:04:00 10:50:00 DIS Outpatient NETTIE HAHN DO [facility] SDC MASS BACK [id number] 01/10/2014 05:58:00 09:48:00 DIS Outpatient MARISA HOOK MD Via [facility] BILATERAL RENAL STONES [id number] 01/06/2014 08:11:00 23:59:59 CLS Outpatient NETTIE HAHN DO [facility] PREOP MASS BACK [id number] 01/04/2014 09:45:00 23:59:59 CLS Outpatient MARISA HOOK MD [facility] PREOP BILATERAL RENAL STONES [id number] 01/02/2014 14:09:00 16:43:00 DIS Emergency LAURA FINCH APRN [facility] ER RIGHT FLANK PAIN [id number] 12/23/2013 09:30:00 23:59:59 CLS Outpatient BRODY ARAYA MD [facility] RAD PANCREATITIS,PAIN [id number] 12/20/2013 12:06:00 23:59:59 CLS Outpatient MARISA HOOK MD [facility] RAD STONE [id number] 12/15/2013 14:39:00 10:38:00 DIS Inpatient BRODY ARAYA MD Via [facility] 4TH ACUTE PANCREATITIS BILA TERAL NEPHROLITHIASIS [id number] 12/14/2013 12:05:00 014 14:58:00 DIS Emergency MORGAN ZOFIA DE LA TORRE [facility] ER RIGHT FLANK PAIN/BLOOD IN URINE [id number] 10/25/2013 16:23:00 014 17:26:00 DIS Emergency MORGAN ZOFIA DE LA TORRE [facility] ER SEIZURE [id number] 09/25/2013 01:21:00 014 04:03:00 DIS Emergency MORGAN ZOFIA DE LA TORRE [facility] ER N/V/D [id number] 07/21/2013 09:02:00 014 14:31:00 DIS Emergency ROBI MAGAÑA MD [facility] ER LOWER ABD PAIN [id number] 07/11/2013 09:15:00 014 23:59:59 CLS Outpatient MARISA HOOK MD [facility] RAD STONES, ABD PAIN [id number] 06/08/2013 12:35:00 014 23:59:59 CLS Outpatient HIPOLITOROMMEL A FIGURE MODEL [facility] RAD BREAST PAIN [id number] 01/04/2013 13:00:00 013 23:59:59 CLS Outpatient MAJORMORIAH COLLAR BASTER [facility] QUICK [id number] 01/04/2013 13:06:00 013 16:41:00 DIS Emergency MAYRA QUINONES [facility] ER POSS KIDNEY STONE [id number] 10/07/2012 14:05:00 013 23:59:59 CLS Outpatient YASSINE KNOX COLLAR BASTER [facility] RAD LEFT BREAST MAS S,PAIN [id number] 01/03/2020 15:23:[address] Emergency ERICK RAMOS MD [facility] ER NAUSEA,RT SHOULDER PAIN [id number] 01/03/2020 11:46:[address] Outpatient MARISA HOOK MD [facility] RAD YOLI FLANK PAIN- STONES [id number] 01/11/2018 13:44:00 Document Registration [id number] 01/11/2018 05:46:00 Document Registration [id number] 08/30/2015 07:45:00 Document Registration [id number] 03/19/2015 13:32:00 Document Registration [id number] 08/08/2014 06:22:00 Document Registration [id number] 08/03/2014 06:33:00 Document Registration [id number] 06/30/2014 12:06:00 Document Registration [id number] 06/30/2014 12:06:00 Document Registration [id number] 06/30/2014 12:06:00 Document Registration [id number] 06/30/2014 12:06:00 Document Registration [id number] 06/30/2014 12:06:00 Document Registration [id number] 06/30/2014 12:06:00 Document Registration [id number] 06/30/2014 12:06:00 Document Registration [id number] 06/30/2014 12:06:00 Document Registration [id number] 06/30/2014 12:06:00 Document Registration [id number] 06/30/2014 12:06:00 Document Registration [id number] 06/30/2014 12:06:00 Document Registration [id number] 06/30/2014 12:06:00 Document Registration [id number] 06/30/2014 12:06:00 Document Registration [id number] 05/12/2014 11:04:00 Document Registration [id number] 05/12/2014 11:04:00 Document Registration [id number] 03/09/2012 12:38:00 Document Registration [id number] 03/08/2012 08:23:00 Document Registration [id number] 02/16/2012 09:54:00 Document Registration [id number] 02/09/2012 06:13:00 Document Registration [id number] 02/04/2012 09:15:00 Document Registration [id number] 01/08/2012 13:13:00 Document Registration [id number] 01/03/2012 12:42:00 Document Registration [id number] 01/02/2012 14:02:00 Document Registration [id number] 12/18/2011 16:38:00 Document Registration [id number] 11/29/2011 10:12:00 Document Registration [id number] 11/11/2011 11:28:00 Document Registration [id number] 10/14/2011 17:21:00 Document Registration [id number] 10/12/2011 16:45:00 Document Registration [id number] 08/18/2011 09:12:00 Document Registration [id number] 08/04/2011 18:48:00 Document Registration [id number] 07/28/2011 21:05:00 Document Registration [id number] 07/17/2011 09:36:00 Document Registration [id number] 07/10/2011 15:40:00 Document Registration [id number] 07/09/2011 20:50:00 Document Registration [id number] 06/13/2011 08:19:00 Document Registration [id number] 06/08/2011 19:45:00 Document Registration [id number] 06/06/2011 05:38:00 Document Registration [id number] 06/03/2011 13:07:00 Document Registration [id number] 05/30/2011 10:31:00 Document Registration [id number] 05/12/2011 14:45:00 Document Registration [id number] 05/08/2011 05:32:00 Document Registration [id number] 05/04/2011 13:21:00 Document Registration [id number] 12/27/2010 22:38:00 Document Registration [id number] 12/13/2010 12:21:00 Document Registration [id number] 11/21/2010 22:19:00 Document Registration [id number] 10/26/2010 14:28:00 Document Registration [id number] 10/11/2010 08:23:00 Document Registration [id number] 10/07/2010 11:15:00 Document Registration [id number] 10/05/2010 07:19:00 Document Registration [id number] 10/01/2010 21:19:00 Document Registration [id number] 09/09/2010 22:34:00 Document Registration [id number] 09/05/2010 11:30:00 Document Registration [id number] 09/03/2010 14:01:00 Document Registration [id number] 09/02/2010 15:19:00 Document Registration [id number] 08/26/2010 08:59:00 Document Registration [id number] 08/21/2010 10:13:00 Document Registration [id number] 08/20/2010 15:09:00 Document Registration [id number] 08/18/2010 15:05:00 Document Registration [id number] 08/05/2010 12:01:00 Document Registration [id number] 07/31/2010 14:13:00 Document Registration [id number] 07/30/2010 05:42:00 Document Registration [id number] 07/25/2010 10:15:00 Document Registration [id number] 07/11/2010 11:22:00 Document Registration [id number] 05/14/2010 13:45:00 Document Registration [id number] 04/30/2010 12:53:00 Document Registration [id number] 04/29/2010 12:26:00 Document Registration [id number] 09/12/2009 12:06:00 Document Registration [id number] 08/08/2009 12:06:00 Document Registration [id number] 06/26/2009 13:22:00 Document Registration [id number] 06/13/2009 11:36:00 Document Registration [id number] 06/08/2009 10:26:00 Document Registration [id number] 05/28/2009 15:11:00 Document Registration [id number] 05/22/2009 11:14:00 Document Registration [id number] 05/18/2009 12:08:00 Document Registration [id number] 04/29/2009 19:12:00 Document Registration [id number] 03/30/2009 09:39:00 Document Registration [id number] 12:05:00 Document Registration [id number] 03/19/2009 15:24:00 Document Registration [id number] 09/15/2006 11:53:00 Document Registration [id number] 01/12/2006 12:03:00 Document Registration [id number] 12/24/2005 10:30:00 Document Registration [id number] 12/18/2005 15:24:00 Document Registration [id number] 09/12/2014 11:37:00 09/12/2014 23:59: 59 CLS Outpatient KIKA ARGUETA DO [id number] 07/20/2014 10:41:00 07/20/2014 23:59: 59 CLS Outpatient ITZ JUNIOR APRN [id number] 04/18/2014 11:17:00 04/18/2014 23:59: 59 CLS Outpatient ITZ JUNIOR APRN [id number] 04/18/2014 11:17:00 04/18/2014 23:59: 59 CLS Outpatient ITZ JUNIOR APRN [id number] 03/24/2014 08:33:00 03/24/2014 23:59: 59 CLS Outpatient KIKA ARGUETA DO [id number] 03/14/2014 10:56:00 03/14/2014 23:59: 59 CLS Outpatient ITZ JUNIOR APRN [id number] 03/09/2014 10:02:00 03/09/2014 23:59: 59 CLS Outpatient BENJI ACOSTA DDS [id number] 03/07/2014 09:38:00 03/07/2014 23:59: 59 CLS Outpatient SABIHA MAST MD [id number] 02/27/2014 16:24:00 02/27/2014 23:59: 59 CLS Outpatient BENJI ACOSTA DDS [id number] 02/07/2014 11:43:00 02/07/2014 23:59: 59 CLS Outpatient ITZ JUNIOR APRN [id number] 01/04/2014 13:20:00 01/04/2014 23:59: 59 CLS Outpatient BRODY ARAYA MD [id number] 12/22/2013 11:08:00 12/22/2013 23:59: 59 CLS Outpatient BRODY ARAYA MD [id number] 12/08/2013 11:17:00 12/08/2013 23:59: 59 CLS Outpatient ITZ JUNIOR APRN [id number] 12/08/2013 11:17:00 12/08/2013 23:59: 59 CLS Outpatient ITZ JUNIOR APRN [id number] 11/09/2013 13:20:00 11/09/2013 23:59: 59 CLS Outpatient DILSHAD LSCS, ARASH Saucedo [id number] 09/20/2013 12:11:00 09/20/2013 23:59: 59 CLS Outpatient DILSHAD LSCS, ARASH Saucedo [id number] 09/20/2013 12:11:00 09/20/2013 23:59: 59 CLS Outpatient RICK MARLENE LASSITER [id number] 09/08/2013 12:22:00 09/08/2013 23:59: 59 CLS Outpatient ARGUETA KIKA DE LA TORRE [id number] 07/19/2013 08:49:00 07/19/2013 23:59: 59 CLS Outpatient DILSHAD LSCS, ARASH Lewis [id number] 07/15/2013 14:34:00 07/15/2013 23:59: 59 CLS Outpatient REYNALDO VIEIRA APRN [id number] 07/15/2013 14:34:00 07/15/2013 23:59: 59 CLS Outpatient REYNALDO VIEIRA APRN [id number] 07/01/2013 10:33:00 07/01/2013 23:59: 59 CLS Outpatient BRODY ARAYA MD [id number] 06/15/2013 13:32:00 06/15/2013 23:59: 59 CLS Outpatient DILSHAD LSCSARASH Lewis [id number] 05/16/2013 09:46:00 05/16/2013 23:59: 59 CLS Outpatient MARLENE CABRERA APRN [id number] 04/08/2013 13:42:00 04/08/2013 23:59: 59 CLS Outpatient ELLIE DE LA TORRE KIKA Hastings [id number] 04/07/2013 00:00:00 04/07/2013 23:59: 59 CLS Outpatient MARLENE CABRERA APRN [id number] 03/23/2013 12:41:00 03/23/2013 23:59: 59 CLS Outpatient SABIHA MAST MD [id number] 02/28/2013 10:32:00 02/28/2013 23:59: 59 CLS Outpatient REYNALDO VIEIRA APRN [id number] 02/28/2013 10:32:00 02/28/2013 23:59: 59 CLS Outpatient REYNALDO VIEIRA APRN [id number] 02/23/2013 12:03:00 02/23/2013 23:59: 59 CLS Outpatient REYNALDO VIEIRA APRN [id number] 08/06/2012 13:58:00 08/06/2012 23:59: 59 CLS Outpatient ARASH ROTHMAN Lewis [id number] 08/06/2012 12:23:00 08/06/2012 23:59: 59 CLS Outpatient [id number] 08/06/2012 12:23:00 08/06/2012 23:59: 59 CLS Outpatient MARLENE CABRERA APRN Semaj [id number] 07/21/2012 13:57:00 07/21/2012 23:59: 59 CLS Outpatient ARASH ROTHMAN Lewis [id number] 07/07/2012 12:53:00 07/07/2012 23:59: 59 CLS Outpatient KIKA ARGUETA DO [id number] 06/24/2012 17:13:00 06/24/2012 23:59: 59 CLS Outpatient [id number] 06/24/2012 17:13:00 06/24/2012 23:59: 59 CLS Outpatient [id number] 05/21/2012 11:23:00 05/21/2012 23:59: 59 CLS Outpatient DARIEL LASSITER REYNALDO Saba [id number] 04/30/2012 13:18:00 04/30/2012 23:59: 59 CLS Outpatient [id number] 03/31/2012 10:14:00 03/31/2012 23:59:5 9 CLS Outpatient MASSIEL FERGUSON DO [id number] 01/03/2013 14:23:00 Document Registration [id number] 12/28/2012 11:34:00 Document Registration [id number] 12/25/2012 12:36:00 Document Registration [id number] 11/19/2012 12:56:00 Document Registration [id number] 11/15/2012 15:50:00 Document Registration [id number] 11/12/2012 10:49:00 Document Registration [id number] 11/05/2012 10:54:00 Document Registration [id number] 10/28/2012 12:49:00 Document Registration [id number] 09/28/2012 15:46:00 Document Registration [id number] 09/22/2012 17:00:00 Document Registration [id number] 09/16/2012 14:58:00 Document Registration [id number] 09/16/2012 14:58:00 Document Registration [id number] 09/16/2012 10:42:00 Document Registration
[2020-01-04] MEDS ORDERED: RT-ALBUINH IH (06:35)
[2020-01-04] MEDS ORDERED: NAPR220T66 PO (06:35)
[2020-01-04] MEDS ORDERED: CEPH-507 PO (09:29)
[2020-01-04] MEDS ORDERED: TMSL.4C PO (09:29)
[2020-01-04] MEDS ORDERED: HYOS0.1281 PO (09:29)
== END 2020-01-03 16:24 | disposition home or self-care (01) ==
LOC: EDUNIT# 15:21 → ER 15:23
DX: N20.1 Calculus of ureter (principal); M25.511 Pain in right shoulder; I10 Essential (primary) hypertension; E78.00 Pure hypercholesterolemia, unspecified; G40.909 Epilepsy, unspecified, not intractable, without status epilepticus; F41.9 Anxiety disorder, unspecified; F32.9 Major depressive disorder, single episode, unspecified; Z88.2 Allergy status to sulfonamides; Z88.5 Allergy status to narcotic agent; Z88.6 Allergy status to analgesic agent; Z88.1 Allergy status to other antibiotic agents; Z88.8 Allergy status to other drugs, medicaments and biological substances; Z85.44 Personal history of malignant neoplasm of other female genital organs; Z82.49 Family history of ischemic heart disease and other diseases of the circulatory system
CPT/HCPCS: 96372; 99284

== ENCOUNTER → 2020-01-03 | Outpatient (CLI) | payer MEDICARE ==
[~2020-01-03] MED LIST changes: +HYOS0.1281 PO; +NAPR220T66 PO; +NAPR500T8 PO; +QUET400T12 PO; +ROPI0.253 PO; +ROSU10TA28 PO; +TAPE50TA2 PO
--- NOTE | 2020-01-03 13:23 | Diagnostic Imaging Report ---
INDICATION: Right-sided kidney stones. TIME OF EXAM: 12:24 PM. COMPARISON: Abdominal radiograph from 01/26/2018. FINDINGS: The bowel gas pattern is unremarkable. Calcific densities overlie the lower poles of both kidneys, consistent with renal calculi. The calculus noted in the mid right ureter on the CT study of 2 days earlier is not well-visualized radiographically. Surgical clips in the left hemipelvis are noted. IMPRESSION: Bilateral renal calculi. The right ureteric calculus noted on CT is not well seen radiographically. Dictated by: Dictated on workstation # [id number]
== END ==
LOC: RAD 11:46
PROVIDERS: ATTEND Urology
DX: N20.0 Calculus of kidney (principal)
CPT/HCPCS: 74018

== ENCOUNTER 2020-01-04 05:56 | Day surgery (SDC) | payer MEDICARE ==
[~2020-01-04] VITALS: Ht 162 cm; Wt 74.5 kg
[2020-01-04] VITALS (11 sets, daily range): BP systolic 132–171; BP diastolic 89–107
[2020-01-04] MEDS ORDERED: cefTRIAXone FOR IV USE 1,000 MG in WATER (STERILE) FOR INJECTION 10 ML IV ONE (06:00)
--- OUTSIDE RECORDS SUMMARY | 2020-01-04 06:03 | XMS REPORT | Clinical Summary ---
Author Author [facility] Organization [facility] Address Unknown Phone Unavailable Care Team Providers Care [employer] Name Role Phone Majo Young RN Unavailable Unavailable Areli Sanchez DO PCP Source Comments Some departments are not documenting in the electronic medical record. If you d o not see the information that you expected, contact Release of Information in [facility] Information Management department at [phone] for further assistan ce in locating additional records.[facility] Allergies Comments Active Allergy Reactions Severity Noted [...]
--- OUTSIDE RECORDS SUMMARY | 2020-01-04 06:04 | XMS REPORT ---
Author Author Burpple. dba developer [facility] [place]. [facility] Address [address] [address] Care Team Providers Care Slipman Name Role Phone SANDI ITZ Unavailable Unavailable JAYME MAYNARD Unavailable Unavailable SABIHA MAST Unavailable Unavailable SABIHA MAST Unavailable MEGAN GUAJARDO Unavailable ANDRE JO Unavailable SE, [facility] Unavailable [phone] [facility] Unavailable KIKA ARGUETA Unavailable REYNALDO VIEIRA Unavailable MICKIE ROSS Unavailable SANDI, ITZ Unavailable SABIHA MAST Unavailable SABIHA MAST Unavailable SANDI, ITZ Unavailable SABIHA MAST Unavailable SANDI, ITZ Unavailable SABIHA MAST Unavailable NARENDRA GRULLON Unavailable SANDI, ITZ Unavailable SABIHA MAST Unavailable SANDI, ITZ Unavailable SABIHA MAST Unavailable SANDI, ITZ Unavailable SANDI, ITZ Unavailable SANDI, ITZ Unavailable SANDI, ITZ Unavailable SABIHA MAST Unavailable SANDI, ITZ Unavailable SANDI, ITZ Unavailable KEZIA SAUCEDO, SABIHA Glaser Unavailable Unavailable ADOLFO SAUCEDO, ANGEL Saba Unavailable Unavailable MILADYS SAUCEDO, MARISA Gant Unavailable Unavailable ROSA ZAZUETA, MAYRA Alas Unavailable Unavailable Anshu NEWBERRY MD Unavailable Unavailable LUCIANO SAUCEDO, ZABRINA Cha Unavailable Unavailable BRY DO, REYNALDO Cha Unavailable Unavailable REDDY SAUCEDO, YORDY Cha Unavailable Unavailable REDDY SAUCEDO, YORDY Cha Unavailable Unavailable GRUPO SAUCEDO, BENJI Sin Unavailable Unavailable LAURA FINCH PROPOSAL REVIEW ANALYST Unavailable Unavailable MORGAN DO, ZOFIA Hastings Unavailable Unavailable ARCHANA SAUCEDO, ROBI Hastings Unavailable Unavailable SANDI, ITZ Unavailable MARSHAL, BRODY Unavailable ROMMEL MCMILLAN PROPOSAL REVIEW ANALYST Unavailable Unavailable MARSHAL SAUCEDO, BRODY Linda Unavailable Unavailable YOANNA VIEIRA PROPOSAL REVIEW ANALYST Unavailable Unavailable JORGE ZAZUETA, ARMINDA Cha Unavailable Unavailable SANDI, ITZ Unavailable ORLY DAVENPORT Unavailable SANDI, ITZ Unavailable SANDI, ITZ Unavailable SANDI, ITZ Unavailable MAGGIE PETER MD Unavailable Unavailable Migration, Doctor Unavailable Unavailable Migration, Doctor Unavailable Unavailable Migration, Doctor Unavailable Unavailable Migration, Doctor Unavailable Unavailable Migration, Doctor Unavailable Unavailable Migration, Doctor Unavailable Unavailable Migration, Doctor Unavailable Unavailable Migration, Doctor Unavailable Unavailable Migration, Doctor Unavailable Unavailable Migration, Doctor Unavailable Unavailable Migration, Doctor Unavailable Unavailable Migration, Doctor Unavailable Unavailable Migration, Doctor Unavailable Unavailable Migration, Doctor Unavailable Unavailable Migration, Doctor Unavailable Unavailable Migration, Doctor Unavailable Unavailable Migration, Doctor Unavailable Unavailable Migration, Doctor Unavailable Unavailable Migration, Doctor Unavailable Unavailable Migration, Doctor Unavailable Unavailable Migration, Doctor Unavailable Unavailable MAGGIE PETER MD Unavailable Unavailable Migration, Doctor Unavailable Unavailable Migration, Doctor Unavailable Unavailable Migration, Doctor Unavailable Unavailable SABIHA MAST Unavailable Unavailable Migration, Doctor Unavailable Unavailable Migration, Doctor Unavailable Unavailable Migration, Doctor Unavailable Unavailable Migration, Doctor Unavailable Unavailable Migration, Doctor Unavailable Unavailable Migration, Doctor Unavailable Unavailable SABIHA MAST Unavailable SABIHA MAST Unavailable SANDI, ITZ Unavailable SANDI, ITZ Unavailable SANDI, ITZ Unavailable NINI Medrano Unavailable Migration, Doctor Unavailable Unavailable REYNALDO VIEIRA Unavailable SEALS, ADAM Unavailable MARSHAL, BRODY Unavailable SANDI, ITZ Unavailable SANDI, ITZ Unavailable MARSHAL, BRODY Unavailable MARSHAL, BRODY Unavailable SANDI, ITZ Unavailable SABIHA MAST Unavailable DONGERTSABIHA ZAMORA Unavailable SABIHA MAST Unavailable ARGUETABROA Unavailable Migration, Doctor Unavailable Unavailable SANDI, ITZ Unavailable SANDI, ITZ Unavailable SANDI, ITZ Unavailable SANDI, ITZ Unavailable SABIHA MAST Unavailable Migration, Doctor Unavailable Unavailable Migration, Doctor Unavailable Unavailable ARASH YUNG Unavailable Migration, Doctor Unavailable Unavailable SANDI, ITZ Unavailable SANDI, ITZ Unavailable SEALS, ADAM Unavailable SANDI, ITZ Unavailable ANGEL MATA MD Unavailable Unavailable SABIHA MAST Unavailable Migration, Doctor Unavailable Unavailable MARSHAL, BRODY Unavailable ARASH YUNG Unavailable REYNALDO VIEIRA Unavailable Migration, Doctor Unavailable Unavailable Migration, Doctor Unavailable Unavailable REYNALDO VIEIRA Unavailable Migration, Doctor Unavailable Unavailable Migration, Doctor Unavailable Unavailable SABIHA MAST Unavailable CRHIS Mckinley Unavailable Migration, Doctor Unavailable Unavailable ARASH YUNG Unavailable Migration, Doctor Unavailable Unavailable REYNALDO VIEIRA Unavailable ARASH YUNG Unavailable Migration, Doctor Unavailable Unavailable zzHEIMAN, ROMMEL Unavailable REYNALDO VIEIRA Unavailable DARIEL, REYNALDO Unavailable DILSHAD, ARASH Unavailable SANDI, ITZ Unavailable MARSHAL, BRODY Unavailable MARSHAL, BRODY Unavailable DILSHAD ARASH Unavailable SANDI, ITZ Unavailable SABIHA MAST Unavailable LUCIANO SAUCEDO, ZABRINA Cha Unavailable Unavailable TARSHA SOLIS Unavailable Unavailable SABIHA MAST Unavailable Migration, Doctor Unavailable Unavailable Migration, Doctor Unavailable Unavailable DARIEL, REYNALDO Unavailable DARIEL, REYNALDO Unavailable ELLIE KIKA Unavailable DILSHAD ARASH Unavailable DILSHAD, ARASH Unavailable DARIEL, REYNALDO Unavailable Migration, Doctor Unavailable Unavailable Migration, Doctor Unavailable Unavailable DARIEL, REYNALDO Unavailable zzHEIMAN, ROMMEL Unavailable zzHEIMAN, ROMMEL Unavailable Unavailable Unavailable WILL ELIZABETH Unavailable Migration, Doctor Unavailable Unavailable Migration, Doctor Unavailable Unavailable DARIEL, REYNALDO Unavailable Migration, Doctor Unavailable Unavailable DARIEL, REYNALDO Unavailable Migration, Doctor Unavailable Unavailable Migration, Doctor Unavailable Unavailable Migration, Doctor Unavailable Unavailable DARIEL, REYNALDO Unavailable DARIEL, REYNALDO Unavailable DARIEL, REYNALDO Unavailable Migration, Doctor Unavailable Unavailable DARIEL, REYNALDO Unavailable Migration, Doctor Unavailable Unavailable DARIEL, REYNALDO Unavailable DARIEL, REYNALDO Unavailable Migration, Doctor Unavailable Unavailable Migration, Doctor Unavailable Unavailable DARIEL, REYNALDO Unavailable Migration, Doctor Unavailable Unavailable Migration, Doctor Unavailable Unavailable Migration, Doctor Unavailable Unavailable ORLY DAVENPORT Unavailable VLADISLAV Dave Unavailable REYNALDO VIEIRA Unavailable Migration, Doctor Unavailable Unavailable Migration, Doctor Unavailable Unavailable ARASH YUNG Unavailable REYNALDO VIEIRA Unavailable ARASH YUNG Unavailable Migration, Doctor Unavailable Unavailable Migration, Doctor Unavailable Unavailable ZOFIA MORA DO Venkata Unavailable Unavailable Migration, Doctor Unavailable Unavailable Migration, Doctor Unavailable Unavailable MARISA HOOK MD Unavailable Unavailable Unavailable Unavailable Unavailable Unavailable Unavailable Unavailable Unavailable Unavailable Unavailable Unavailable Allergies Allergy Reported Allergen(s) Allergy Type Date of Reaction(s) Care Facility Classificati Onset Provider on Famotidine Famotidine ; Drug Allergy 01-13-2018 dry heaves NA NA Not (22 sources) Translations: Available [Famotidine] (09338) Encounters Encounter Date Encounter Type Encounter Diagnosis Care Provider Facility Start: Patient encounter MARISA HOOK MD [facility] Via C hristi 01-03-2020 [facility] Start: Patient encounter MARISA HOOK MD [facility] Via C hristi 01-03-2020 [facility] Start: Emergency department ZOFIA MORA DO [facility] Via Nikki 01-01-[address] [facility] End: 01-01-2020 Start: Telephone encounter [facility] LESTERANTO[facility]ei 12-28-2019 Start: Telephone encounter [facility] 12-07-2019 Start: Telephone encounter ITZ [facility]AND[facility] 12-02-2019 Start: Telephone encounter Encounter for other [facility] 11-25-2019 screening for malignant neoplasm of breast Start: Telephone encounter Encounter for other ADAM [facility]ALS [facility] TABBY THOMPSON 11-07-2019 screening for MAIN malignant neoplasm of breast Start: Telephone encounter ITZ TOTH [facility] 11-04-2019 Start: Telephone encounter ADAM [facility]ALS [facility] 10-31-2019 [facility] Encounter for ADAM SEALS [facility] 10-28-2019 gynecological examination (general) (routine) without abnormal findings Start: Telephone encounter ITZ TOTH [facility] 10-28-2019 Start: Patient encounter NA NA [facility] 10-28-[address] 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 Start: Emergency department ZABRINA WOLF MD V [facility] 09-10-[address] [facility] End: 09-10-2019 Start: Patient encounter TARSHA Shamir SIFUENTESShilo TRUONG [facility] Via risti 09-10-[address] [facility] Start: Patient encounter SABIHA Glaser [facility] 09-10-2019 procedure [facility] Start: Patient encounter SABIHA Glaser [facility] 07-28-2019 procedure [facility] Start: [facility] 07-15-2019 patient visit [facility] End: 07-15-2019 Start: Patient encounter [facility]EL [facility] V ia [facility] 07-15-2019 procedure [facility] Start: Patient encounter SABIHA MAST [facility] 03-03-[address] [facility] ([id number]) Start: Patient encounter SABIHA MAST [facility] 03-01-[address] [facility] ([id number]) Start: Patient encounter SABIHA MAST [facility] 02-12-[address] [facility] ([id number]) Start: Patient encounter SABIHA MAST [facility] 02-12-[address] [facility] ([id number]) Start: Patient encounter SABIHA MAST [facility] 11-29-[address] [facility] ([id number]) Start: Patient encounter SABIHA MAST [facility] 10-18-2018 procedure [facility] ([id number]) Start: Patient encounter SABIHA MAST [facility] 09-30-[address] [facility] ([id number]) Start: Patient encounter SABIHA Fuentes [facility] 08-23-2018 procedure [facility] ([id number]) Start: Patient encounter SABIHA Fuentes [facility] 08-16-2018 procedure [facility] ([id number]) Start: Patient encounter SABIHA Fuentes [facility] 08-06-2018 procedure [facility] ([id number]) Start: Patient encounter SABIHA Fuentes [facility] 07-13-2018 procedure [facility] ([id number]) Start: Patient encounter SABIHA Fuentes [facility] 05-11-2018 procedure [facility] ([id number]) Start: Patient encounter 02-04-2018 procedure Start: Patient encounter 01-26-2018 procedure End: 01-26-2018 Start: Patient encounter 01-25-2018 procedure Start: Patient encounter 01-25-2018 procedure Start: Patient encounter MARISA HOOK MD Not Availab le ([id number]) 01-22-2018 procedure Start: Evaluation and Kidney stone BRODY N MARSHAL Not Av ailable ([id number]) 01-14-2018 management of Work Phone: inpatient End: 01-15-2018 Start: Patient encounter 01-14-2018 procedure End: 01-15-2018 Start: Emergency department NA NA Not Avai lable ([id number]) 01-13-2018 patient visit Start: Admission to same day MARISA A MILADYS Via [facility]3] 01-13-2018 surgery center Work Phone: [facility] ([phone]) End: 01-13-2018 Start: Patient encounter MARISA HOOK MD Not Availab le ([id number]) 01-13-2018 procedure End: 01-13-2018 Start: Patient encounter MARISA A MILADYS Not Availab le ([id number]) 01-11-2018 procedure Start: Patient encounter MARISA A MILADYS Not Availab le ([id number]) 01-11-2018 procedure End: 01-11-2018 Start: Patient encounter NA NA Not Availab le ([id number]) 12-29-2017 procedure Start: Patient encounter NA NA Not Availab le ([id number]) 12-29-2017 procedure End: 12-29-2017 Start: Patient encounter 12-25-2017 procedure Start: Patient encounter 12-22-2017 procedure Start: Patient encounter NA NA Not Availab le ([id number]) 10-27-2017 procedure End: 10-27-2017 Start: Patient encounter 10-20-2017 procedure Start: Patient encounter 10-06-2017 procedure Start: Patient encounter SABIHA [facility] 07-07-2017 procedure [facility] ([id number]) Start: Patient encounter 05-01-2017 procedure Start: Patient encounter GRACIE CONI SAUCEDO Not Availab le ([id number]) 04-09-2017 procedure Start: Patient encounter 04-06-2017 procedure Start: Patient encounter ARMINDA PATEL PA Not A vailable ([id number]) 07-14-2016 procedure End: 08-06-2016 Start: Patient encounter ARMINDA PATEL PA Not A vailable ([id number]) 07-10-2016 procedure Start: Patient encounter ARMINDA ZAZUETA Not A vailable ([id number]) 07-03-2016 procedure Start: Patient encounter ARMINDA PATEL PA Not A vailable ([id number]) 06-26-2016 procedure Start: Patient encounter MARISA HOOK MD Not Availab le ([id number]) 06-11-2016 procedure End: 06-11-2016 Start: Patient encounter MAYRA ZAZUETA Not Katt ilable ([id number]) 06-07-2016 procedure Start: Patient encounter SABIHA MAST MD Not Avail able ([id number]) 04-14-2016 procedure Start: Emergency department ZABRINA WOLF MD Not Available ([id number]) 03-24-2016 patient visit End: 03-24-2016 Start: Patient encounter 08-03-2015 procedure Start: Patient encounter 02-19-2015 procedure Start: Patient encounter MARISA HOOK MD Not Availab le ([id number]) 11-30-2014 procedure Start: Patient encounter MARISA HOOK MD Not Availab le ([id number]) 11-07-2014 procedure End: 11-07-2014 Start: Patient encounter MARISA HOOK MD Not Availab le ([id number]) 08-08-2014 procedure End: 08-08-2014 Start: Patient encounter MARISA HOOK MD Not Availab le ([id number]) 02-15-2014 procedure End: 02-15-2014 Start: Patient encounter NETTIE HAHN DO Not Availa ble ([id number]) 01-12-2014 procedure End: 01-12-2014 Start: Patient encounter 01-10-2014 procedure End: 01-10-2014 Start: Patient encounter ZOFIA MORA DO Not Availab le ([id number]) 12-14-2013 procedure Start: Emergency department ZOFIA MORA DO Not Avai lable ([id number]) 10-25-2013 patient visit End: 10-25-2013 Start: Emergency department 09-25-2013 patient visit End: 09-25-2013 Start: Emergency department 07-21-2013 patient visit End: 07-21-2013 Start: Patient encounter 07-11-2013 procedure Start: Patient encounter ROMMEL MCMILLAN Not Availab le ([id number]) 06-08-2013 procedure Start: Patient encounter 10-07-2012 procedure Start: Patient encounter MAGGIE PETER MD Not Availa ble ([id number]) 04-29-2009 procedure Start: Patient encounter MAGGIE PETER MD [facility] Via [facility] Emergency Department 04-29-[address] [facility] ENCOUNTER FOR OTHER Encounter for other PREPROCEDURAL EXAMIN preprocedural examination EXAM PRE-OPERATIVE Pre-operative MARISA HOOK MD Not Availab le ([id number]) NOS examination, unspecified Encounter for [facility] gynecological Other Phone: [facility] examination (general) [place] ([id number]) (routine) without abnormal findings Medical Equipment No Information Goals No Information Immunizations Immunizatio Immunization Notes Care Provider Facility n Date 02-17-2014 influenza, injectable, NA NA [facility] quadrivalent, Center [facility] - preservative free [facility] ([id number]) 02-28-2013 [facility], seasonal, [facility] ([id number]) 02-28-2013 pneumococcal NA [facility] polysaccharide [facility] - vaccine, 23 valent [facility] ([id number]) 12-28-2012 tetanus toxoid, NA NA [facility] reduced diphtheria [facility] - toxoid, and acellular [facility] pertussis vaccine, ([id number]) adsorbed 03-30-2012 influenza, seasonal, NA [facility] ([id number]) Interventions No Information Medications Medication Drug Dates Sig Sig (Original) Class(es) (Normalized) phentermine Sympathomi Start: take 1 capsule Phentermine HCl 37.5 MG Orally Once a hydrochloride 37.5 mg metic 08-16-2018 by mouth once da y 1 capsule 24h Jul, 30 days oral capsule Amine daily Active (2 sources) Anorectic Start: 08-16-2018 take 1 Phentermine capsule by HCl 37.5 MG mouth once Orally Once a daily day 1 capsule 24h Jul, 30 days Active ProAir HFA 108 (90 Base) Start: take 2 puff( s) mcg/act 04-26-2012 by inhalation (1 source) four times daily Payers The data below is from unstructured sources Payer Name Policy Number Subscriber Name Relationship Early Detection Works [id number] Pattie Orozco Self / Same As Patient Wps Medicare [id number] Pattie Orozco Self / Same As Patient Plan of Treatment Date Care Activity Detail Author Start: [facility] 08-10-2018 Start: [facility] 05-11-2018 Start: Fluoro W/ C-Arm No Charge Fluoro W/ C-Arm No C harge Via [facility] 01-13-2018 [facility] ([id number]) Problems Active Problems Problem Problem Date Last Documented Episodic/Chr Provider Classificati Recorded Date onic on Abdominal Diaphragmatic hernia without Episodic PETER FINCH hernia obstruction or gangrene ; Translations: [Umbilical hernia (8 sources) without obstruction or gang mack] Allergic Allergy status to analgesic agent Episodic NA NA reactions status ; Translations: [All ergy (37 sources) status to other antibiotic agents status] Blindness Diplopia Episodic NA NA and vision defects (7 sources) Cancer of Personal history of malignant Episodic ANGEL other female neoplasm of other female genital BR UEGGEMANN genital organs ; Translations: [Personal MD organs history of malignant neopla sm of other female genital organs] (20 sources) 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 (4 sources) Cardiac Palpitations ; Translations: Episodi c dysrhythmias [Tachycardia, unspecified] (15 sources) Complication Other postprocedural complications E pisodic s of and disorders of genitourin remy surgical system ; Translations: [Hem orrhage procedures complicating a procedure] or medical care (6 sources) Contraceptiv Tubal ligation status Episodic ANGEL e and ADOLFO procreative MD management (20 sources) Disorders of Hyperlipidemia, unspecified ; Chroni c lipid Translations: [Pure metabolism hypercholesterolemia, unspe cified] (20 sources) Esophageal Gastro-esophageal reflux disease Chronic ANGEL disorders without esophagitis ; Translations: ADOLFO (22 sources) [Esophageal reflux] MD Genitourinar Urinary incontinence, unspecified Ch ronic y symptoms and ill-defined conditions (3 sources) Menopausal Atrophic vaginitis ; Translations: Chronic REYNALDO DARIEL disorders [Postmenopausal atrophic vaginitis] Other Phone: (20 sources) Other and Benign neoplasm of rectum Episodic NA NA unspecified benign neoplasm (4 sources) Other Hypotension, unspecified Episodic circulatory disease (2 sources) Other Myalgia and myositis, unspecified Episodic NA NA connective tissue disease (21 sources) Other Fibromyalgia Episodic NA NA connective tissue disease (9 sources) Other Other specified soft tissue Episodic connective disorders tissue disease (2 sources) Other Hypertonicity of bladder Chronic diseases of bladder and urethra (3 sources) Other Other specified disorders of kidney Chronic diseases of and ureter kidney and ureters (3 sources) Other Hydronephrosis Episodic ZOFIA MORGAN DO diseases of kidney and ureters (5 sources) Other Personal history of other diseases Episodic NA NA gastrointest of the digestive system inal disorders (14 sources) Other Diarrhea, unspecified Episodic gastrointest inal disorders (7 sources) Other Diarrhea Episodic gastrointest inal disorders (8 sources) Other liver Fatty (change of) liver, not Chronic PETER FINCH diseases elsewhere classified (2 sources) Other lower Postinflammatory pulmonary fibrosis Chronic PETER FINCH respiratory disease (3 sources) Other lower Personal history of pneumonia Episodic NA NA respiratory (recurrent) disease (4 sources) Other lower Shortness of breath Episodic respiratory disease (10 sources) Other Polyneuropathy, unspecified Chronic nervous system disorders (5 sources) Other Hypoesthesia of skin ; Episodic NA NA nervous Translations: [OTHER ACUTE system POSTPROCEDURAL PAIN] disorders (4 sources) Other Other acute postprocedural pain Epis odic nervous system disorders (1 source) Other Other acute postoperative pain Episo dic nervous system disorders (2 sources) Other skin Sebaceous cyst Episodic disorders (3 sources) Other skin Localized superficial swelling, Epis odic disorders mass, or lump (5 sources) Peripheral Peripheral vascular disease, Chronic and visceral unspecified atherosclero sis (2 sources) Residual Obstructive sleep apnea (adult) Chronic NA NA codes; (pediatric) unclassified (7 sources) Residual Sleep apnea, unspecified ; Chronic J OSHUA codes; Translations: [FAMILY HX OF ISCHEM BRUEGGEMANN unclassified HEART DIS AND OTH DI] (15 sources) Residual Obstructive sleep apnea Chronic codes; (adult)(pediatric) unclassified (3 sources) Residual 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; uterus ; Translations: [FAMILY HX B RUEGGEMANN unclassified OF ISCHEM HEART DIS AND OTH DI] (8 sources) Residual Family history of ischemic heart Episodic ANGEL codes; disease and other diseases of the B RUEGGEMANN unclassified circulatory system ; Translations: (20 sources) [ACQUIRED ABSENCE OF OTHER ORGANS] Residual Other specified postprocedural Episodic NA NA codes; states unclassified (10 sources) Urinary Interstitial cystitis (chronic) Chronic MARISA MILADYS tract without hematuria ; Translations: M D infections [Chronic interstitial cysti tis] (12 sources) Past or Other Problems Problem Problem Date Last Documented Episodic/Chr Provider Classificati Recorded Date onic on Diabetes Other abnormal glucose Episodic mellitus without complication (3 sources) E Codes: Other and unspecified overexertion Episodic TARSHA FIDEL Natural/envi or strenuous movements or postures, DISABILITY INSURANCE HEARING OFFICER ronment initial encounter (2 sources) Fluid and Hypovolemia ; Translations: Episodic electrolyte [HYPOVOLEMIA] disorders (4 sources) Inflammatory Vaginitis and vulvovaginitis, Episodic MAYRA diseases of unspecified ROSA PA female pelvic organs (3 sources) Other Post-discharge follow-up Episodic JONI ID aftercare HUULYSSESER (1 source) Work Phone: Other Pain in right leg Episodic ANGEL connective BRUEGGEMANN tissue MD disease (8 sources) Other Urethral stricture, unspecified Episodic MARISA MILADYS diseases of MD bladder and urethra (6 sources) Other female Personal history of other diseases Episodic ANGEL genital of the female genital tract BRUEGGE TRAN disorders (8 sources) Other Personal history of other diseases E pisodic gastrointest of digestive system inal disorders (3 sources) Other Nonspecific abnormal findings in Episodic MAYRA gastrointest stool contents ROSA ZAZUETA inal disorders (3 sources) Other Systemic inflammatory response Episo dic injuries and syndrome due to noninfectio us conditions process with acute organ due to dysfunction external causes (3 sources) Other lower Painful respiration Episodic respiratory disease (6 sources) Other lower Shortness of breath Episodic respiratory disease (3 sources) Other Anorexia Episodic SABIHA nutritional; KEZIA SAUCEDO endocrine; and metabolic disorders (3 sources) Other skin Rash and other nonspecific skin Episodic MAYRA disorders eruption ROSA ZAZUETA (3 sources) Residual Acquired absence of other specified Episodic ANGEL codes; parts of digestive tract BRUEGGEMAN N unclassified (4 sources) Residual Other postprocedural status Episodic MARISA MILADYS codes; unclassified (3 sources) Sprains and Strain of muscle, fascia and tendon Episodic TARSHA FIDEL strains of lower back, initial encounter AR [employer] (2 sources) Unclassified Patient encounter status SABIHA (1 source) KEZIA Work Phone: Procedures Date Procedure Procedure Detail Performing Cl inician Start: Handlg&/or convey ADAM SEALS 08-16-2018 of spec for tr Other Phone: office to lab Start: [facility] visit, aliza TOTH 02-09-2018 pt Other Phone: Start: Cystoscopy MARISA Gant MILADYS 01-13-2018 Start: Radiography of MARISA Gant MILADYS 01-13-2018 [id number] Work Phone: anusha Start: Radiography of MARISA Gant MILADYS 01-11-2018 [id number] Work Phone: anusha Start: Lithotripsy MARISA Gant MILADYS 12-29-2017 [employer] shock wave Work Phone: Start: Psychotherapy Doctor Migration 07-19-2013 w/patient 45 minutes Start: Psychotherapy ARASH YUNG 06-15-2013 w/patient 30 Other Phone: minutes Start: Drug screen, Doctor Migration 05-16-2013 qualitate/multi Start: Injection Doctor Migration 04-08-2013 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 1/2 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 Start: Assay of thyroid REYNALDO VIEIRA 02-28-2013 stimulating Other Phone: hormone tsh Start: Blood count [facility] 02-28-2013 complete auto&auto Other difrntl wbc Start: Collection venous [facility] 02-28-2013 blood venipuncture Other Start: Comprehensive [facility] 02-28-2013 metabolic panel Other Phone: Start: Hemoglobin [facility] 02-28-2013 glycosylated a1c Other Phone: Start: Lipid panel [facility] 02-28-2013 Other Start: Noninvasive ORLY ETHEL 01-03-2013 ear/pulse oximetry Other single deter Start: Urnls dip ORLY ETHEL 01-03-2013 stick/tablet rgnt Other Phone: auto w/o microscopy Start: Culture bacterial VLADISLAV Jolie 12-28-2012 quanttative colony Other count urine Start: Noninvasive VLADISLAV Jolie 12-28-2012 ear/pulse oximetry Other single deter Start: Urnls dip VLADISLAV Jolie 12-28-2012 stick/tablet rgnt Other Phone: auto w/o microscopy Start: Psychotherapy ARASH YUNG 11-05-2012 w/patient 45 Other Phone: minutes Start: Psychotherapy Doctor Migration 08-06-2012 w/patient 30 minutes Results Test Name Value Interpreta Reference Facilit Date tion Range y Time not yet categorized on 2020-01-01 COLONY COUNT <10,000 Invalid PENDING Interpreta LOCATIO 020 tion Code N [facility] 15:16-0 ([id number]) 400 RAPID ID ISABEL. NO SUSCEPTIBILITY PERFORMED Invalid PEND ING Interpreta LOCATIO 020 tion Code N S 15:16-0 ([id number]) 400 SUSCEPTIBILITY Positive Invalid PENDING Interpreta LOCATIO 020 tion Code N [facility] 15:16-0 ([id number]) 400 laboratory on 2020-01-01 Albumin [Mass/Vol] 4.4 g/dL Negative 3.2-4.5 PENDING 08-0 2-2 g/dL LOCATIO 020 [facility] 15:28-0 ([id number]) 400 ALP [Catalytic 54 U/L Negative 40-136 U/L PENDING activity/Vol] LOCATIO 020 [facility] 15:28-0 ([id number]) 400 ALT [Catalytic 13 U/L Negative 0-55 U/L PENDING activity/Vol] LOCATIO 020 [facility] 15:28-0 ([id number]) 400 Amylase [Catalytic 66 U/L Negative 25-125 U/L PENDING 07-03 activity/Vol] LOCATIO 020 [facility] 15:28-0 ([id number]) 400 Anion gap 13 mmol/L Negative 5-14 PENDING [Moles/Vol] mmol/L LOCATIO 020 [facility] 15:28-0 ([id number]) 400 AST [Catalytic 13 U/L Negative 5-34 U/L PENDING activity/Vol] LOCATIO [address] [place] [address] 15:28-0 ([id number]) 400 Bacteria identified 3 OR MORE Invalid PENDING Cx Nom (U) Interpreta LOCATIO 020 tion Code [facility] 15:16-0 ([id number]) 400 Bacteria LM Ql FEW Abnormal PENDING (Urine sed) LOCATIO [address] [place] [address] 15:16-0 ([id number]) 400 Basophils (Bld) 0.0 10*3/uL Negative 0.0-0.1 PENDING 12-31 [#/Vol] 10*3/uL LOCATIO 020 [facility] 15:28-0 ([id number]) 400 Basophils/100 WBC 0 % Negative 0-10 % PENDING 12-31 (Bld) LOCATIO [address] [place] [address] 15:28-0 ([id number]) 400 Bilirubin [Mass/Vol] 0.5 mg/dL Negative 0.1-1.0 PENDING mg/dL LOCATIO 020 [facility] 15:28-0 ([id number]) 400 Bilirubin Ql (U) Negative Invalid NEGATIVE PENDING Interpreta LOCATIO 020 tion Code [facility] 15:16-0 ([id number]) 400 Calcium [Mass/Vol] 9.4 mg/dL Negative 8.5-10.1 PENDING 08-0 2-2 mg/dL LOCATIO 020 [facility] 15:28-0 ([id number]) 400 Calcium [Mass/Vol] 9.1 mg/dL Negative 8.5-10.1 PENDING 08-0 2-2 mg/dL LOCATIO 020 N [facility] 15:28-0 ([id number]) 400 Casts LM Ql (Urine NONE Invalid PENDING sed) Interpreta LOCATIO 020 tion Code N [facility] 15:16-0 ([id number]) 400 Chloride [Moles/Vol] 107 mmol/L Negative 98-107 PENDING 0 8-02-2 mmol/L LOCATIO 020 [facility] 15:28-0 ([id number]) 400 Clarity (U) CLEAR Invalid PENDING Interpreta LOCATIO 020 tion Code [facility] 15:16-0 ([id number]) 400 CO2 [Moles/Vol] 18 mmol/L Low 21-32 PENDING 12-31-2 mmol/L LOCATIO 020 [facility] 15:28-0 ([id number]) 400 Color (U) YELLOW Invalid PENDING Interpreta LOCATIO 020 tion Code [facility] 15:16-0 ([id number]) 400 Creatinine 1.00 mg/dL Negative 0.60-1.30 PENDING 2 [Mass/Vol] mg/dL LOCATIO 020 [facility] 15:28-0 (03500) 400 Creatinine and 59 Invalid PENDING 2 Glomerular Interpreta LOCATIO 020 filtration tion Code [facility] 15:28-0 rate.predicted panel ([id number]) 400 - Serum, Plasma or Blood Crystals LM Ql NONE Invalid PENDING (Urine sed) Interpreta LOCATIO 020 tion Code [facility] 15:16-0 ([id number]) 400 Eosinophils (Bld) 0.2 10*3/uL Negative 0.0-0.3 PENDING 07-03 [#/Vol] 10*3/uL LOCATIO 020 [facility] 15:28-0 ([id number]) 400 Eosinophils/100 WBC 3 % Negative 0-10 % PENDING 07-03 (Bld) LOCATIO 020 [facility] 15:28-0 ([id number]) 400 Erythrocyte 12.6 % Negative 10.0-14.5 PENDING distribution width % LOCATIO 020 (RBC) [Ratio] N [facility] 15:28-0 (83038) 400 Glucose [Mass/Vol] 106 mg/dL High 70-105 PENDING 08-0 2-2 mg/dL LOCATIO 020 [facility] 15:28-0 ([id number]) 400 Glucose Auto test Negative Invalid NEGATIVE PENDING 12-31 strip Ql (U) Interpreta LOCATIO 020 tion Code N [facility] 15:16-0 ([id number]) 400 Hematocrit (Bld) 42 % Negative 35-52 % PENDING [Volume fraction] LOCATIO 020 [facility] 15:28-0 ([id number]) 400 Hemoglobin (Bld) 14.5 g/dL Negative 11.5-16.0 PENDING [Mass/Vol] g/dL LOCATIO 020 [facility] 15:28-0 ([id number]) 400 Ketones Auto test Negative Invalid NEGATIVE PENDING 12-31 strip Ql (U) Interpreta LOCATIO 020 tion Code N [facility] 15:16-0 ([id number]) 400 Leukocyte esterase TRACE Abnormal NEGATIVE PENDING 0 -2 Test strip Ql (U) LOCATIO 020 [facility] 15:16-0 ([id number]) 400 Lipase [Catalytic 35 U/L Negative 8-78 U/L PENDING 12-31 activity/Vol] LOCATIO 020 [facility] 15:28-0 ([id number]) 400 Lymphocytes (Bld) 3.3 10*3/uL Negative 1.0-4.0 PENDING 07-03 [#/Vol] 10*3 LOCATIO 020 [facility] 15:28-0 ([id number]) 400 Lymphocytes/100 WBC 42 % Negative 12-44 % PENDING 07-03 (Bld) LOCATIO 020 [facility] 15:28-0 ([id number]) 400 Magnesium [Mass/Vol] 2.1 mg/dL Negative 1.6-2.4 PENDING 2 mg/dL LOCATIO 020 [facility] 15:28-0 ([id number]) 400 MCH (RBC) [Entitic 29 pg Negative 25-34 pg PENDING 08-0 2-2 mass] LOCATIO 020 [facility] 15:28-0 ([id number]) 400 MCHC (RBC) 35 g/dL Negative 32-36 g/dL PENDING [Mass/Vol] LOCATIO 020 [facility] 15:28-0 ([id number]) 400 MCV (RBC) [Entitic 83 Negative 80-99 PENDING 08-0 2-2 vol] [foz_us] LOCATIO 020 [facility] 15:28-0 ([id number]) 400 Monocytes (Bld) 0.7 10*3/uL Negative 0.0-1.0 PENDING 12-31 [#/Vol] 10*3 LOCATIO 020 [facility] 15:28-0 (18003) 400 Monocytes/100 WBC 9 % Negative 0-12 % PENDING 12-31 (Bld) LOCATIO 020 [facility] 15:28-0 ([id number]) 400 MRSA DNA AMERICO+probe COLLECTION CONTAMINATION WITH SKIN Invalid PENDING Ql (Unsp spec) Interpreta LOCATIO 020 tion Code [facility] 15:16-0 ([id number]) 400 Mucus Ql (Urine sed) Negative Invalid PENDING 12-31 Interpreta LOCATIO 020 tion Code [facility] 15:16-0 (15130) 400 Neutrophils (Bld) 3.7 10*3/uL Negative 1.8-7.8 PENDING 07-03 [#/Vol] 10*3 LOCATIO 020 [facility] 15:28-0 (15642) 400 Neutrophils/100 WBC 46 % Negative 42-75 % PENDING 07-03 (Bld) LOCATIO 020 [facility] 15:28-0 ([id number]) 400 Nitrite Ql (U) Negative Invalid NEGATIVE PENDING Interpreta LOCATIO 020 tion Code [facility] 15:16-0 ([id number]) 400 pH (U) 7.0 [pH] Invalid 5-9 PENDING Interpreta LOCATIO 020 tion Code [facility] 15:16-0 ([id number]) 400 Platelet mean volume 10.9 High 7.4-10.4 PENDING 2 (Bld) [Entitic vol] [foz_us] LOCATIO 020 N S 15:28-0 ([id number]) 400 Platelets (Bld) 237 10*3/uL Negative 130-400 PENDING 12-31 [#/Vol] 10*3/uL LOCATIO 020 N [facility] 15:28-0 ([id number]) 400 Potassium 3.8 mmol/L Negative 3.6-5.0 PENDING [Moles/Vol] mmol/L LOCATIO 020 N [facility] 15:28-0 ([id number]) 400 Protein [Mass/Vol] 7.6 g/dL Negative 6.4-8.2 PENDING - 2-2 g/dL LOCATIO 020 N [facility] 15:28-0 ([id number]) 400 Protein Ql (U) Negative Invalid NEGATIVE PENDING Interpreta LOCATIO 020 tion Code N [facility] 15:16-0 (55609) 400 RBC (Bld) [#/Vol] 5.08 10*6/uL Negative 4.35-5.85 PENDING 10*6/uL LOCATIO 020 N S 15:28-0 ([id number]) 400 RBC LM.HPF (Urine NONE Invalid PENDING sed) [#/Area] Interpreta LOCATIO 020 tion Code N [facility] 15:16-0 ([id number]) 400 RBC Ql (U) Negative Invalid NEGATIVE PENDING Interpreta LOCATIO 020 tion Code N [facility] 15:16-0 ([id number]) 400 Sodium [Moles/Vol] 138 mmol/L Negative 135-145 PENDING 07-03 mmol/L LOCATIO 020 N S 15:28-0 (57826) 400 Specific gravity (U) 1.015 Low 1.016-1.02 PENDING 0 [Rel density] 2 LOCATIO 020 N [facility] 15:16-0 (19300) 400 Urea nitrogen 10 mg/dL Negative 7-18 mg/dL PENDING [Mass/Vol] LOCATIO 020 N [facility] 15:28-0 (77804) 400 Urea 10 mg/mg Invalid PENDING nitrogen/Creatinine Interpreta LOCATIO 020 [Mass ratio] tion Code N [facility] 15:28-0 (45213) 400 Urinalysis complete YES Invalid PENDING W Reflex Culture Interpreta LOCATIO 020 panel - Urine tion Code N [facility] 15:16-0 (79149) 400 Urobilinogen (U) 0.2 mg/dL Invalid < = 1.0 PENDING [Mass/Vol] Interpreta mg/dL LOCATIO 020 tion Code N [facility] 15:16-0 ([id number]) 400 WBC (Bld) [#/Vol] 8.0 10*3/uL Negative 4.3-11.0 PENDING 07-03 10*3/uL LOCATIO 020 N [facility] 15:28-0 (83371) 400 WBC LM.HPF (Urine Abnormal PENDING sed) [#/Area] LOCATIO 020 N [facility] 15:16-0 (31861) 400 not yet categorized on 2019-10-28 CLINICAL Normal Communi INFORMATION: ty [facility] ([id number]) COMMENT Communi ty [facility] (07315) Date of previous Normal Communi biopsy [facility] (80853) Date of previous PAP Normal Communi smear [facility] (40333) Last menstrual Normal Communi period start date [facility] ([id number]) laboratory on 2019-10-28 Recreation Program Specialist Cyto Normal Communi stain Nom (Cvx/Vag) ty [ID] [facility] ([id number]) HPV Communi 16+18+31+33+35+39+45 ty +51+52+56+58+59+68 [facility] DNA Probe+sig amp Ql [place] (Cvx) [facility] (39377) HPV 6+11+42+43+44 Communi DNA Probe+sig amp Ql ty (Cvx) [facility] (97121) Microscopic Normal Communi observation Cyto ty stain Nom (Cvx) [facility] (75256) Specimen source Cyto Vagina Normal Communi stain Nom (Cvx/Vag) ty [facility] (20212) Statement of Normal Communi adequacy Cyto stain ty (Cvx/Vag) [Interp] [facility] (00943) not yet categorized on 2019-03-01 Exp date 08/27/2019 Invalid Communi Interpreta ty tion Code [facility] (15485) GLU FINGERSTICK 82 Invalid Communi Interpreta ty tion Code [facility] (78107) Lot # [id number] Invalid Communi Interpreta ty tion Code [facility] (78096) not yet categorized on 2018-08-16 CLINICAL Normal Communi INFORMATION: ty [facility] (64170) COMMENT Invalid Communi Interpreta ty tion Code [facility] (53783) Date of previous Normal Communi biopsy ty [facility] (69007) Date of previous PAP Normal Communi smear [facility] (15422) Last menstrual Normal Communi period start date [facility] (12501) laboratory on 2018-08-16 Recreation Program Specialist Cyto Normal Communi stain Nom (Cvx/Vag) ty [ID] [facility] (97365) Microscopic Normal Communi observation Cyto ty stain Nom (Cvx) [facility] (36924) Specimen source Cyto Normal Communi stain Nom (Cvx/Vag) ty [facility] (36032) Statement of Normal Communi adequacy Cyto stain ty (Cvx/Vag) [Interp] [facility] (51690) wbc auto (bld) [#/vol] on 2018-01-15 WBC (Bld) [#/Vol] 6.9 10*3/uL 4.3-11.0 [facility] [place] [facility] (51072) urea nitrogen/creatinine [mass ratio] on 2018-01-15 Urea 11 mg/mg Via nitrogen/Creatinine [facility] [Mass ratio] [facility] [place] [facility] (73327) urea nitrogen [mass/vol] on 2018-01-15 Urea nitrogen 10 mg/dL 7-18 Via [Mass/Vol] [facility] (17439) sodium [moles/vol] on 2018-01-15 Sodium [Moles/Vol] 142 mmol/L 135-145 [facility] [place] [facility] (43533) rbc auto (bld) [#/vol] on 2018-01-15 RBC (Bld) [#/Vol] 4.10 10*6/uL Low 4.35-5.85 Via [facility] (56133) potassium [moles/vol] on 2018-01-15 Potassium 3.5 mmol/L Low 3.6-5.0 Via [Moles/Vol] [facility] (07619) platelets auto (bld) [#/vol] on 2018-01-15 Platelets (Bld) 172 10*3/uL 130-400 Via [#/Vol] [facility] (56067) platelet mean volume auto (bld) [entitic vol] on 2018-01-15 Platelet mean volume 11.6 fL High 7.4-10.4 Via (Bld) [Entitic vol] [facility] (63949) mcv auto (rbc) [entitic vol] on 2018-01-15 MCV (RBC) [Entitic 85 fL 80-99 Via vol] [facility] (66447) mchc auto (rbc) [mass/vol] on 2018-01-15 MCHC (RBC) 33 g/dL 32-36 Via [Mass/Vol] [facility] (01967) mch auto (rbc) [entitic mass] on 2018-01-15 MCH (RBC) [Entitic 29 pg 25-34 Via mass] [facility] (21122) hemoglobin (bldv) [mass/vol] on 2018-01-15 Hemoglobin (Bld) 11.7 g/dL 11.5-16.0 Via [Mass/Vol] [facility] (00969) hematocrit (bld) [volume fraction] on 2018-01-15 Hematocrit (Bld) 35 % 35-52 Via [Volume fraction] [facility] (79133) glucose [mass/vol] on 2018-01-15 Glucose [Mass/Vol] 93 mg/dL 70-105 Via [facility] (41504) erythrocyte distribution width auto (rbc) [ratio] on 2018-01-15 Erythrocyte 13.5 % 10.0-14.5 Via distribution width [facility] (RBC) [Ratio] [facility] (05106) creatinine and glomerular filtration rate.predicted panel (s/p/bld) on 2018-01-15 GFR/1.73 sq Via M.predicted among [facility] non-blacks MDRD Hospita (S/P/Bld) [Vol l rate/Area] [facility] (94118) creatinine [mass/vol] on 2018-01-15 Creatinine 0.91 mg/dL 0.60-1.30 Via [Mass/Vol] [facility] (25001) chloride [moles/vol] on 2018-01-15 Chloride [Moles/Vol] 114 mmol/L High 98-107 Via [facility] (61431) carbon dioxide on 2018-01-15 CO2 [Moles/Vol] 18 mmol/L Low 21-32 Via [facility] (96012) calcium [mass/vol] on 2018-01-15 Calcium [Mass/Vol] 8.3 mg/dL Low 8.5-10.1 Via [facility] (27471) anion gap [moles/vol] on 2018-01-15 Anion gap 10 mmol/L 5-14 Via [Moles/Vol] [facility] (18609) segmented neutrophils/100 wbc manual cnt (bld) on 2018-01-14 Segmented 79 % Via neutrophils/100 WBC Nikki (Bld) [facility] (87930) rbc morphology finding nom (bld) on 2018-01-14 RBC morphology NORMAL Via finding Nom (Bld) [facility] (55809) protein [mass/vol] on 2018-01-14 Protein [Mass/Vol] 7.2 g/dL 6.4-8.2 Via [facility] (68892) neutrophils/100 wbc auto (bld) on 2018-01-14 Neutrophils/100 WBC 77 % High 42-75 Via (Bld) [facility] (64318) neutrophils auto (bld) [#/vol] on 2018-01-14 Neutrophils (Bld) 11.7 10*3/uL High 1.8-7.8 Via [#/Vol] [facility] (02836) monocytes/100 wbc (bld) on 2018-01-14 Monocytes/100 WBC 7 % Via (Bld) [facility] (05053) Monocytes/100 WBC 9 % 0-12 Via (Bld) [facility] (39540) monocytes auto (bld) [#/vol] on 2018-01-14 Monocytes (Bld) 1.3 10*3/uL High 0.0-1.0 Via [#/Vol] [facility] ([id number]) manual blood lymphocytes/100 leukocytes on 2018-01-14 Lymphocytes/100 WBC 14 % [facility] (Bld[facility] (63332[facility] manual blood basophils/100 leukocytes on 2018-01-14 Basophils/100 WBC 0 % Via (Bld) [facility] (18746) lymphocytes auto (bld) [#/vol] on 2018-01-14 Lymphocytes (Bld) 2.1 10*3/uL 1.0-4.0 Via [#/Vol] [facility] (58178) eosinophils/100 wbc manual cnt (nose) on 2018-01-14 Eosinophils/100 WBC 0 % Via (Nose) [facility] (10077) eosinophils/100 wbc auto (bld) on 2018-01-14 Eosinophils/100 WBC 0 % 0-10 Via (Bld) [facility] (15588) eosinophils auto (bld) [#/vol] on 2018-01-14 Eosinophils (Bld) 0.0 10*3/uL 0.0-0.3 Via [#/Vol] [facility] (05787) calcium measurement corrected for albumin on 2018-01-14 Albumin [Mass/Vol] 9.3 g/dL 8.5-10.1 [facility] (46047) bilirubin [mass/vol] on 2018-01-14 Bilirubin [Mass/Vol] 0.5 mg/dL 0.1-1.0 [facility] (86840) basophils auto (bld) [#/vol] on 2018-01-14 Basophils (Bld) 0.0 10*3/uL 0.0-0.1 Via [#/Vol] [facility] (50246) band form neutrophils/100 wbc (bld) on 2018-01-14 Band form 0 % Via neutrophils/100 WBC [facility] (Bld) [facility] (12784) ast [catalytic activity/vol] on 2018-01-14 AST [Catalytic 23 U/L 5-34 Via activity/Vol] [facility] (33107) alt [catalytic activity/vol] on 2018-01-14 ALT [Catalytic 25 U/L 0-55 Via activity/Vol] [facility] (14542) alp [catalytic activity/vol] on 2018-01-14 ALP [Catalytic 57 U/L 40-136 Via activity/Vol] [facility] (76345) albumin [mass/vol] on 2018-01-14 Albumin [Mass/Vol] 4.2 g/dL 3.2-4.5 Via [facility] (16687) wbc lm.hpf (urine sed) [#/area] on 2018-01-13 WBC LM.HPF (Urine Via sed) [#/Area] [facility] (68461) urobilinogen auto test strip (u) [mass/vol] on 2018-01-13 Urobilinogen (U) NORMAL NORMAL Via [Mass/Vol] [facility] (88954) urinalysis complete w reflex culture panel (u) on 2018-01-13 Urinalysis complete NO Via W Reflex Culture [facility] panel - Urine [facility] ([id number]) specific gravity test strip (u) [rel density] on 2018-01-13 Specific gravity (U) 1.010 Invalid 1.016-1.02 Via [Rel density] Interpreta 2 Nikki tion Code [facility] (00729) rbc lm.hpf (urine sed) [#/area] on 2018-01-13 RBC LM.HPF (Urine Invalid Via sed) [#/Area] Interpreta Nikki tion Code [facility] (17001) rbc lm ql (urine sed) on 2018-01-13 RBC Ql (U) 5+ Invalid NEGATIVE Via Interpreta [facility] tion Code [facility] (80157) protein test strip ql (u) on 2018-01-13 Protein Ql (U) 1+ Invalid NEGATIVE Via Interpreta [facility] tion Code [facility] (61544) ph test strip (u) on 2018-01-13 pH (U) 8 [pH] 5-9 [facility] (22160) nitrite test strip ql (u) on 2018-01-13 Nitrite Ql (U) Negative NEGATIVE [facility] (66316) mucus lm ql (urine sed) on 2018-01-13 Mucus Ql (Urine sed) Negative [facility] [place] [facility] (97015[facility] mrsa isol org specific cx ql (unsp spec) on 2018-01-13 MRSA isol Org MRSA not isolated Via specific cx Ql (Unsp [facility] spec) [facility] [place] [facility] (47293) lipase [catalytic activity/vol] on 2018-01-13 Lipase [Catalytic 13 U/L 8-78 Via activity/Vol] [facility] [facility] (14189) leukocyte esterase test strip ql (u) on 2018-01-13 Leukocyte esterase Negative NEGATIVE Via Test strip Ql (U) [facility] (72414) ketones auto test strip ql (u) on 2018-01-13 Ketones Auto test Negative NEGATIVE Via strip Ql (U) [facility] (06961) glucose auto test strip ql (u) on 2018-01-13 Glucose Auto test Negative NEGATIVE Via strip Ql (U) [facility] (63593) crystals lm ql (urine sed) on 2018-01-13 Crystals LM Ql NONE Via (Urine sed) [facility] (38042) color (u) on 2018-01-13 Color (U) YELLOW [facility] (31105) clarity (u) on 2018-01-13 Clarity (U) CLEAR [facility] [facility] (47539) casts lm ql (urine sed) on 2018-01-13 Casts LM Ql (Urine NONE Via sed) [facility] [facility] (29948) bilirubin test strip ql (u) on 2018-01-13 Bilirubin Ql (U) Negative NEGATIVE Via [facility] (43090) bacteria lm ql (urine sed) on 2018-01-13 Bacteria LM Ql NONE Via (Urine sed) [facility] (62323) amylase [catalytic activity/vol] on 2018-01-13 Amylase [Catalytic 84 U/L 25-125 Via activity/Vol] [facility] (54360) mrsa isol org specific cx ql (unsp spec) on 2017-12-29 MRSA isol Org MRSA not isolated Via specific cx Ql (Unsp Nikki spec) [facility] ([id number]) laboratory on 2017-10-06 25-hydroxyvitamin D3 15 ng/mL Low 30-100 Not [Mass/Vol] ng/mL [facility] ([id number]) Ferritin [Mass/Vol] 123 ng/mL Normal 10-232 Not ng/mL [facility] ([id number]) laboratory on 2017-03-25 Albumin [Mass/Vol] 4.6 g/dL Invalid 3.5-5.5 Not 10-2 5-2 Interpreta g/dL [facility] 017 tion Code le 11:11-0 ([id number]) 400 Albumin/Globulin 1.5 {ratio} Invalid 1.2-2.2 Not 10-2 5-2 [Mass ratio] Interpreta [facility] 017 tion Code le 11:11-0 ([id number]) 400 ALP [Catalytic 68 U/L Invalid 39-117 Not 10-25-2 activity/Vol] Interpreta IU/L [facility] 017 tion Code le 11:11-0 ([id number]) 400 ALT [Catalytic 10 U/L Invalid 0-32 IU/L Not 10-25-2 activity/Vol] Interpreta [facility] 017 tion Code le 11:14-0 ([id number]) 400 AST [Catalytic 10 U/L Invalid 0-40 IU/L Not 10-25-2 activity/Vol] Interpreta [facility] 017 tion Code le 11:11-0 ([id number]) 400 Bilirubin [Mass/Vol] 0.3 mg/dL Invalid 0.0-1.2 Not 10 -25-2 Interpreta mg/dL [facility] 017 tion Code le 11:11-0 ([id number]) 400 Calcium [Mass/Vol] 10.0 mg/dL Invalid 8.7-10.2 Not 10- 25-2 Interpreta mg/dL [facility] 017 tion Code le 11:11-0 (40741) 400 Chloride [Moles/Vol] 100 mmol/L Invalid 96-106 Not 1 0-25-2 Interpreta mmol/L Availab 017 tion Code le 11:11-0 ([id number]) 400 Cholesterol 379 mg/dL High 100-199 Not 10-25-2 [Mass/Vol] mg/dL Avail[facility] 017 le 11:34-0 (58231) 400 Cholesterol in HDL 41 mg/dL Invalid >39 mg/dL Not 10-2 5-2 [Mass/Vol] Interpreta Availab 017 tion Code le 11:34-0 (44235) 400 Cholesterol in LDL 262 mg/dL High 0-99 mg/dL Not 10- 25-2 [Mass/Vol] Availab 017 le 11:34-0 (04590) 400 Cholesterol in VLDL 76 mg/dL High 5-40 mg/dL Not 10 -25-2 [Mass/Vol] Availab 017 le 11:34-0 (33843) 400 CO2 [Moles/Vol] 24 mmol/L Invalid 18-29 Not 10-25-2 Interpreta mmol/L Avail[facility] 017 tion Code le 11:11-0 (21049) 400 Creatinine 0.92 mg/dL Invalid 0.57-1.00 Not 10-25-2 [Mass/Vol] Interpreta mg/dL Avail[facility] 017 tion Code le 11:14-0 (53134) 400 GFR/1.73 sq 74 Invalid >59 Not 10-25-2 M.predicted CKD-EPI Interpreta mL/min/1.7 Avail[facility] 017 (S/P/Bld) [Vol tion Code 3 le 11:14-0 rate/Area] (43570) 400 GFR/1.73 sq 85 Invalid >59 Not 10-25-2 M.predicted CKD-EPI Interpreta mL/min/1.7 Avail[facility] 017 (S/P/Bld) [Vol tion Code 3 le 11:14-0 rate/Area] (55976) 400 Globulin (S) 3.0 g/dL Invalid 1.5-4.5 Not 10-25-2 [Mass/Vol] Interpreta g/dL [facility]ail[facility] 017 tion Code le 11:11-0 (43391) 400 Glucose [Mass/Vol] 98 mg/dL Invalid 65-99 Not 10-2 5-2 Interpreta mg/dL Avail[facility] 017 tion Code le 11:11-0 (25096) 400 Potassium 4.5 mmol/L Invalid 3.5-5.2 Not 10-25-2 [Moles/Vol] Interpreta mmol/L Avail[facility] 017 tion Code le 11:11-0 (51823) 400 Protein [Mass/Vol] 7.6 g/dL Invalid 6.0-8.5 Not 10-2 5-2 Interpreta g/dL Avail[facility] 017 tion Code le 11:11-0 (76447) 400 Sodium [Moles/Vol] 141 mmol/L Invalid 134-144 Not 10- 25-2 Interpreta mmol/L Avail[facility] 017 tion Code le 11:08-0 (03760) 400 Triglyceride 382 mg/dL High 0-149 Not 10-25-2 [Mass/Vol] mg/dL Avail[facility] 017 le 11:34-0 (07793) 400 TSH Qn 1.840 Invalid 0.450-4.50 Not 10-25-2 Interpreta 0 uIU/mL Avail[facility] 017 tion Code le 08:15-0 (97025) 400 Urea nitrogen 14 mg/dL Invalid 6-24 mg/dL Not 10-25-2 [Mass/Vol] Interpreta Availab 017 tion Code le 11:11-0 (47951) 400 Urea 15 mg/mg Invalid 9-23 Not 10-25-2 nitrogen/Creatinine Interpreta Avail[facility] 017 [Mass ratio] tion Code le 11:14-0 (51297) 400 laboratory on 2016-08-14 Albumin [Mass/Vol] 4.5 g/dL Invalid 3.5-5.5 Not 03-1 6-2 Interpreta g/dL Avail[facility] 017 tion Code le 09:07-0 (78852) 400 Albumin/Globulin 1.7 {ratio} Invalid 1.2-2.2 Not 03-1 6-2 [Mass ratio] Interpreta Availab 017 tion Code le 09:07-0 (30134) 400 ALP [Catalytic 70 U/L Invalid 39-117 Not 0316-2 activity/Vol] Interpreta IU/L Avail[facility] 017 tion Code le 09:07-0 (95607) 400 ALT [Catalytic 14 U/L Invalid 0-32 IU/L Not 08-14-2 activity/Vol] Interpreta Availab 017 tion Code le 09:07-0 (69177) 400 AST [Catalytic 13 U/L Invalid 0-40 IU/L Not 08-14-2 activity/Vol] Interpreta Availab 017 tion Code le 09:07-0 (42015) 400 Bilirubin [Mass/Vol] 0.3 mg/dL Invalid 0.0-1.2 Not 16-2 Interpreta mg/dL Avail[facility] 017 tion Code le 09:070 (61398) 400 Calcium [Mass/Vol] 9.4 mg/dL Invalid 8.7-10.2 Not 03-1 6-2 Interpreta mg/dL Avail[facility] 017 tion Code le 09:070 (60335) 400 Chloride [Moles/Vol] 101 mmol/L Invalid 96-106 Not 0 16-2 Interpreta mmol/L Avail[facility] 017 tion Code le 09:070 (03831) 400 CO2 [Moles/Vol] 28 mmol/L Invalid 18-29 Not 08-14-2 Interpreta mmol/L Avail[facility] 017 tion Code le 09:070 (59712) 400 Creatinine 0.85 mg/dL Invalid 0.57-1.00 Not 2 [Mass/Vol] Interpreta mg/dL Avail[facility] 017 tion Code le 09:070 (96339) 400 GFR/1.73 sq 94 mL/min/{1.73_m2} Invalid >59 Not 0 3-16-2 M.predicted among Interpreta mL/min/1.7 Avail[facility] 017 blacks MDRD tion Code 3 le 09:07-0 (S/P/Bld) [Vol (33798) 400 rate/Area] GFR/1.73 sq 82 mL/min/{1.73_m2} Invalid >59 Not 0 3-16-2 M.predicted among Interpreta mL/min/1.7 Availab 017 non-blacks MDRD tion Code 3 le 09:07-0 (S/P/Bld) [Vol (48413) 400 rate/Area] Globulin (S) 2.7 g/dL Invalid 1.5-4.5 Not 08-14-2 [Mass/Vol] Interpreta g/dL Avail[facility] 017 tion Code le 09:07-0 (37995) 400 Glucose [Mass/Vol] 101 mg/dL High 65-99 Not 03-1 6-2 mg/dL Availab 017 le 09:07-0 (97153) 400 Potassium 4.5 mmol/L Invalid 3.5-5.2 Not 16-2 [Moles/Vol] Interpreta mmol/L Availab 017 tion Code le 09:07-0 (26681) 400 Protein [Mass/Vol] 7.2 g/dL Invalid 6.0-8.5 Not - 6-2 Interpreta g/dL Avail[facility] 017 tion Code le 09:07-0 (26671) 400 Sodium [Moles/Vol] 144 mmol/L Invalid 134-144 Not 2 Interpreta mmol/L Availab 017 tion Code le 09:07-0 (25694) 400 TSH Qn 1.030 Invalid 0.450-4.50 Not Interpreta 0 uIU/mL Avail[facility] 017 tion Code le 10:44-0 (18770) 400 Urea nitrogen 11 mg/dL Invalid 6-24 mg/dL Not [Mass/Vol] Interpreta Availab 017 tion Code le 09:07-0 (08451) 400 Urea 13 mg/mg Invalid 9-23 Not 2 nitrogen/Creatinine Interpreta Availab 017 [Mass ratio] tion Code le 09:07-0 (48403) 400 Social History The data below is from unstructured sources History Response Recorde d Date/Time Hx Family Cancer N 06/06 3:11pm Hx Family Cardiac Disorders Y 06/06/11 3:11pm Hx Family Hypertension Y MOTHER 06/06/11 3:11pm History Response Recorde d Date/Time Alcohol Use Denies Use 0 01/04/13 1:27pm Recreational Drug Use N 01/04/13 1:27pm Sexually Transmitted Disease N 01/04/13 1:27pm Vital Signs Date Time Vital Sign Value Performing Clinician Facil ity 08-23-2018 Body height 157.48 cm ADAM MONZON [facility] 16:00-0400 Other Phone: [facility] [place] ([id number]) 08-23-2018 Body mass index 32.19 kg/m2 ADAM SEALS [facility] 16:00040 (BMI) [Ratio] Other Phone: [facility] [place] ([id number]) 08-23-2018 Body temperature 98.1 [degF] ADAM SEALS [facility] 16:00040 Other Phone: [facility] [place] ([id number]) 08-23-2018 Body weight 79.83 kg ADAM SEALS [facility] 16:040 Other Phone: [facility] [place] ([id number]) 08-16-2018 Body height 157.48 cm ADAM SEALS [facility] 11:30-0400 Other Phone: [facility] [place] ([id number]) 08-16-2018 Body mass index 31.82 [facility] (BMI) [Ratio] Other Phone: [facility] [place] ([id number]) 08-16-2018 Body temperature 98.1 [degF] ADAM SEALS [facility] 11:30-0400 Other Phone: [facility] [place] ([id number]) 08-16-2018 Body weight 78.93 kg ADAM SEALS [facility] 11:30-0400 Other Phone: [facility] [place] ([id number]) 05-11-2018 Body height 157.48 cm [facility] 12:40-0500 Other Phone: [facility] [place] ([id number]) 05-11-2018 Body mass index 30.54 kg/m2 [facility] 12:40-0500 (BMI) [Ratio] Other Phone: [facility] [place] ([id number]) 05-11-2018 Body weight 75.75 kg [facility] 12:40-0500 Other Phone: [facility] [place] ([id number]) 02-19-2018 Body height 157.48 cm ORLY DAVENPORT [facility] 18:00-0400 Other Phone: [facility] [place] ([id number]) 02-19-2018 Body mass index 30.56 kg/m2 ORLY ETHEL [facility] 18:00-0400 (BMI) [Ratio] Other Phone: [facility] [place] () 02-19-2018 Body temperature 97.6 [degF] ORLY DAVENPORT [facility] 18:00-0400 Other Phone: [facility] [place] () 02-19-2018 Body weight 75.8 kg ORLY DAVENPORT [facility] 18:00-0400 Other Phone: [facility] [place] () 02-19-2018 SaO2% (BldA) [Mass 96 % ORLY DAVENPORT [facility] 18:00-0400 fraction] Other Phone: [facility] [place] () 02-09-2018 Body height 157.48 cm [facility] 11:40-0400 Other Phone: [facility] [place] () 01-22-2018 Body height 157.48 cm [facility] 14:20-0400 Other Phone: [facility] [place] () 01-22-2018 Body mass index 30.14 kg/m2 [facility] 14:20-0400 (BMI) [Ratio] Other Phone: [facility] [place] () 01-22-2018 Body temperature 98 [degF] [facility] 14:20-0400 Other Phone: [facility] [place] ([id number]) 01-22-2018 Body weight 74.75 kg [facility] 14:20-0400 Other Phone: [facility] [place] () 07-19-2013 Body temperature 99.1 [degF] Doctor Migration [facility] 09:25-0500 [facility] ([id number]) 07-19-2013 Body weight 77.79 kg Doctor Migration [facility] 09:25-0500 [facility] ([id number]) 07-15-2013 Body height 154.94 cm REYNALDO [facility] 14:34-0500 Other Phone: [facility] [place] ([id number]) 07-15-2013 Body temperature 98.7 [degF] REYNALDO [facility] 14:34-0500 Other Phone: [facility] [place] ([id number]) 07-15-2013 Body weight 80.7 kg REYNALDO [facility] 14:34-0500 Other Phone: Center [facility] [place] ([id number]) 07-01-2013 Body height 154.94 cm Doctor Migration [facility] 10:33-0500 [facility] ([id number]) 07-01-2013 Body temperature 98.6 [degF] Doctor Migration [facility] 10:33-0500 [facility] ([id number]) 07-01-2013 Body weight 81.42 kg Doctor Migration [facility] 10:33-0500 [facility] ([id number]) 04-08-2013 Body height 154.94 cm Doctor Migration [facility] 13:42-0500 [facility] ([id number]) 04-08-2013 Body temperature 98.7 [degF] Doctor Migration [facility] 13:42-0500 [facility] ([id number]) 04-08-2013 Body weight 78.54 kg Doctor [facility] 13:42-0500 [facility] ([id number]) 03-23-2013 Body height 154.94 cm [facility] 13:41-0400 Other Phone: [facility] [place] ([id number]) 03-23-2013 Body weight 80.29 kg REYNALDO [facility] 13:41-0400 Other Phone: Center [facility] [place] ([id number]) 02-23-2013 Body height 154.94 cm REYNALDO [facility] 13:030400 Other Phone: [facility] [place] ([id number]) 02-23-2013 Body weight 78.47 kg REYNALDO [facility] 13:030400 Other Phone: Center [facility] [place] ([id number]) 01-06-2013 Body height 154.94 cm Doctor Migration [facility] 09:36-0400 [facility] ([id number]) 01-06-2013 Body temperature 98.1 [degF] Doctor Migration [facility] 09:36-0400 [facility] ([id number]) 01-06-2013 Body weight 75.75 kg Doctor Migration [facility] 09:36-0400 [facility] ([id number]) 01-03-2013 Body height 154.94 cm ORLY DAVENPORT [employer] 15:23-0400 Other Phone: [facility] [place] ([id number]) 01-03-2013 Body temperature 98.2 [degF] [facility] [id number]:[id number] Other Phone: [facility] [place] ([id number]) 01-03-2013 Body weight 74.64 kg [facility] 15:230400 Other Phone: [facility] [place] ([id number]) 12-28-2012 Body height 154.94 cm [facility] 12:34-0400 Other Phone: [facility] [place] ([id number]) 12-28-2012 Body temperature 97.3 [degF] VLADISLAV [employer] [facility] 12:34-0400 Other Phone: [facility] [place] ([id number]) 12-28-2012 Body weight 75.03 kg VLADISLAV [employer] [facility] 12:34-0400 Other Phone: [facility] [place] ([id number]) 11-15-2012 Body height 154.94 cm REYNALDO VIEIRA [facility] 16:50-0400 Other Phone: [facility] [place] ([id number]) 11-15-2012 Body temperature 98 [degF] REYNALDO [facility] 16:50-0400 Other Phone: [facility] [place] ([id number]) 11-15-2012 Body weight 7.48 kg [facility] [id number] Other Phone: [facility] [place] ([id number]) 10-28-2012 Body height 154.94 cm Doctor Migration [facility] 13:49-0400 [facility] ([id number]) 10-28-2012 Body temperature 99 [degF] Doctor Migration [facility] 13:49-0400 [facility] ([id number]) 10-28-2012 Body weight 73.03 kg Doctor Migration [facility] 13:49-0400 [facility] ([id number]) 08-06-2012 Body height 154.94 cm Doctor [facility] 12:230500 [facility] ([id number]) 08-06-2012 Body temperature 98.2 [degF] Doctor [facility] 12:23-0500 [facility] ([id number]) 08-06-2012 Body weight 76.66 kg Doctor [facility] 12:230500 [facility] ([id number]) Functional Status The data below is from unstructured sources Query Response Date Gilbert rded Patient Orientation Person Place Time Situation Normal For Age April 09, 2015 4:03pm Comprehension Ability Understands Co ncepts April 09, 2015 4:03pm Query Response Date Gilbert rded Patient Orientation Person Place Time Situation February 03, 2014 2:55pm Query Response Date Gilbert rded Patient Orientation Person Place Time Situation April 11, 2014 7:15am Comprehension Ability Understands Co ncepts April 11, 2014 7:15am Query Response Date Gilbert rded Patient Orientation Person Place Time Situation December 18, 2013 11:25am Comprehension Ability Understands Co ncepts December 18, 2013 9:00am Query Response Date Gilbert rded Patient Orientation Person Place Time Situation March 24, 2014 8:55am Comprehension Ability Understands Co ncepts March 24, 2014 8:55am Query Response Date Gilbert rded Comprehension Ability Understands Co ncepts January 14, 2018 8:00pm Mental Status No Information History general Narrative - Reported Note Date & Note Facility Type History [facility] ([id number]) Reported Summary Purpose eClinicalWorks SubmissioneClinicalWorks SubmissioneClinicalWorks SubmissioneClinicalWorks SubmissioneClinicalWorks SubmissioneClinicalWorks SubmissioneClinicalWorks SubmissioneClinicalWorks SubmissioneClinicalWorks SubmissioneClinicalWorks SubmissioneClinicalWorks SubmissioneClinicalWorks SubmissioneClinicalWorks SubmissioneClinicalWorks SubmissioneClinicalWorks SubmissioneClinicalWorks SubmissioneClinicalWorks SubmissioneClinicalWorks SubmissioneClinicalWorks SubmissioneClinicalWorks SubmissioneClinicalWorks SubmissioneClinicalWorks Submission Advance Directives Directive Response Recor ded Date/Time Advance Directives No 11:16am Health Care Power of Car Designer No 02/01/16 11:16am Organ Donor Yes 02/01/16 11:16am Resuscitation Status Full Code 02/01/16 11:16am Directive Response Recor ded Date/Time Advance Directives No 12:41pm Health Care Power of Car Designer No 03/03/16 12:41pm Organ Donor Yes 03/03/16 12:41pm Resuscitation Status Full Code 03/03/16 12:41pm Directive Response Recor ded Date/Time Advance Directives No 12:41pm Health Care Power of Car Designer No 03/03/16 12:41pm Organ Donor Yes 03/03/16 12:41pm Directive Response Recor ded Date/Time Advance Directives No 9:45am Health Care Power of Car Designer No 06/10/16 9:45am Organ Donor Yes 06/10/16 9:45am Resuscitation Status Full Code 06/10/16 9:45am Directive Response Recor ded Date/Time Advance Directives No 6:25am Health Care Power of Car Designer No 06/11/16 6:25am Organ Donor Yes 06/11/16 6:25am Resuscitation Status Full Code 06/11/16 6:25am Directive Response Recor ded Date/Time Advance Directives No 6:44pm Health Care Power of Car Designer No 09/12/15 6:44pm Organ Donor Yes 09/12/15 6:44pm Resuscitation Status Full Code 09/12/15 6:44pm Directive Response Recor ded Date/Time Advance Directives No 4:03pm Health Care Power of Car Designer No 04/09/15 4:03pm Organ Donor Yes 04/09/15 4:03pm Resuscitation Status Full Code 04/09/15 4:03pm Directive Response Recor ded Date/Time Advance Directives No 10:31pm Health Care Power of Car Designer No 10/22/15 1:20pm Organ Donor Yes 10/22/15 1:20pm Resuscitation Status Full Code 12/06/15 10:31pm Directive Response Recor ded Date/Time Advance Directives No 3:53pm Health Care Power of Car Designer No 10/13/15 3:53pm Organ Donor Yes 10/13/15 3:53pm Resuscitation Status Full Code 10/13/15 3:53pm Directive Response Recor ded Date/Time Advance Directives No 1:20pm Health Care Power of Car Designer No 10/22/15 1:20pm Organ Donor Yes 10/22/15 1:20pm Resuscitation Status Full Code 10/22/15 1:20pm Directive Response Recor ded Date/Time Advance Directives No 4:24pm Health Care Power of Car Designer No 06/20/14 4:24pm Organ Donor Yes 06/20/14 4:24pm Resuscitation Status Full Code 06/20/14 4:24pm Directive Response Recor ded Date/Time Advance Directives No 11:43pm Health Care Power of Car Designer No 01/31/14 11:43pm Organ Donor No 01/31/14 11:43pm Resuscitation Status Full Code 01/31/14 11:43pm Resuscitation Status Full Code 01/31/14 7:10pm Directive Response Recor ded Date/Time Advance Directives No 7:10am Health Care Power of Car Designer No 11/07/14 7:10am Organ Donor Yes 11/07/14 7:10am Directive Response Recor ded Date/Time Advance Directives No 7:36am Health Care Power of Car Designer No 08/08/14 7:36am Organ Donor Yes 08/08/14 7:36am Resuscitation Status Full Code 08/08/14 7:36am Directive Response Recor ded Date/Time Advance Directives No 5:30pm Health Care Power of Car Designer No 10/26/14 5:30pm Organ Donor Yes 10/26/14 5:30pm Resuscitation Status Full Code 10/26/14 5:30pm Directive Response Recor ded Date/Time Advance Directives No 2:37pm Health Care Power of Car Designer No 01/02/14 2:37pm Organ Donor Yes 01/02/14 2:37pm Resuscitation Status Full Code 01/02/14 2:37pm Directive Response Recor ded Date/Time Advance Directives No 7:10am Health Care Power of Car Designer No 11/07/14 7:10am Organ Donor Yes 11/07/14 7:10am Resuscitation Status Full Code 11/07/14 7:10am Directive Response Recor ded Date/Time Advance Directives No 5:43pm Health Care Power of Car Designer No 01/21/14 5:43pm Organ Donor Yes 01/21/14 5:43pm Resuscitation Status Full Code 01/21/14 5:43pm Directive Response Recor ded Date/Time Advance Directives No 8:35am Health Care Power of Car Designer No 02/09/15 8:35am Organ Donor Yes 02/09/15 8:35am Resuscitation Status Full Code 02/09/15 8:35am Directive Response Recor ded Date/Time Advance Directives No 5:45pm Health Care Power of Car Designer No 09/15/14 5:45pm Organ Donor Yes 09/15/14 5:45pm Resuscitation Status Full Code 09/15/14 5:45pm Directive Response Recor ded Date/Time Advance Directives No 7:41am Health Care Power of Car Designer No 02/15/14 7:41am Organ Donor No 02/15/14 7:41am Resuscitation Status Full Code 02/15/14 7:41am Directive Response Recor ded Date/Time Advance Directives No 6:30am Health Care Power of Car Designer No 01/12/14 6:30am Organ Donor Yes 01/12/14 6:30am Resuscitation Status Full Code 01/12/14 6:30am Directive Response Recor ded Date/Time Advance Directives No 9:22am Health Care Power of Car Designer No 01/06/14 9:22am Organ Donor Yes 01/06/14 9:22am Directive Response Recor ded Date/Time Advance Directives No 7:13am Health Care Power of Car Designer No 04/11/14 7:13am Organ Donor No 04/11/14 7:13am Resuscitation Status Full Code 04/11/14 7:13am Directive Response Recor ded Date/Time Advance Directives No 12:15pm Health Care Power of Car Designer No 12/14/13 12:15pm Organ Donor Yes 12/14/13 12:15pm Resuscitation Status Full Code 12/14/13 12:15pm Directive Response Recor ded Date/Time Advance Directives No 4:17pm Health Care Power of Car Designer No 02/18/14 4:17pm Organ Donor No 02/18/14 4:17pm Resuscitation Status Full Code 02/18/14 4:17pm Directive Response Recor ded Date/Time Advance Directives No 10:55am Health Care Power of Car Designer No 03/02/14 10:55am Organ Donor No 03/02/14 10:55am Resuscitation Status Full Code 03/02/14 10:55am Directive Response Recor ded Date/Time Advance Directives No 1:10pm Health Care Power of Car Designer No 09/03/14 1:10pm Organ Donor Yes 09/03/14 1:10pm Resuscitation Status Full Code 09/03/14 1:10pm Directive Response Recor ded Date/Time Advance Directives No 5:48pm Health Care Power of Car Designer No 10/13/14 5:48pm Organ Donor Yes 10/13/14 5:48pm Resuscitation Status Full Code 10/13/14 5:48pm Directive Response Recor ded Date Advance Directives N 11/11 1:27pm Health Care Power of Car Designer N 01/04/13 1:27pm Organ Donor Y 01/04/13 1 :27pm Directive Response Recor ded Date/Time Advance Directives No 11:36am Health Care Power of Car Designer No 04/05/14 11:36am Organ Donor No 04/05/14 11:36am Resuscitation Status Full Code 04/05/14 11:36am Directive Response Recor ded Date/Time Advance Directives No 4:53pm Health Care Power of Car Designer No 05/10/14 4:53pm Organ Donor Yes 05/10/14 4:53pm Resuscitation Status Full Code 05/10/14 4:53pm Directive Response Recor ded Date/Time Advance Directives No 3:46pm Health Care Power of Car Designer No 12/15/13 3:46pm Organ Donor Yes 12/15/13 3:46pm Resuscitation Status Full Code 12/15/13 3:46pm Directive Response Recor ded Date/Time Advance Directives No 2:44am Health Care Power of Car Designer No 07/01/14 2:44am Organ Donor Yes 07/01/14 2:44am Resuscitation Status Full Code 07/01/14 2:44am Directive Response Recor ded Date/Time Advance Directives No 9:03am Health Care Power of Car Designer No 03/24/14 9:03am Organ Donor No 03/24/14 9:03am Resuscitation Status DNR-Pt Request 03/24/14 9:03am Directive Response Recor ded Date/Time Advance Directives No 1:51pm Health Care Power of Car Designer No 02/23/17 1:51pm Organ Donor Yes 02/23/17 1:51pm Resuscitation Status Full Code 02/23/17 1:51pm Directive Response Recor ded Date/Time Advance Directives No 12:14pm Health Care Power of Car Designer No 10/21/17 12:14pm Organ Donor Yes 10/21/17 12:14pm Resuscitation Status Full Code 10/21/17 12:14pm Directive Response Recor ded Date/Time Advance Directives No 9:45am Health Care Power of Car Designer No 10/27/17 9:45am Organ Donor Yes 10/27/17 9:45am Resuscitation Status Full Code 10/27/17 9:45am Directive Response Recor ded Date/Time Advance Directives No 5:43pm Health Care Power of Car Designer No 12/22/17 5:43pm Organ Donor Yes 12/22/17 5:43pm Resuscitation Status Full Code 12/22/17 5:43pm Directive Response Recor ded Date/Time Advance Directives No 6:25am Health Care Power of Car Designer No 12/29/17 6:25am Organ Donor Yes 12/29/17 6:25am Resuscitation Status Full Code 12/29/17 6:25am Directive Response Recor ded Date/Time Advance Directives No 10:21am Health Care Power of Car Designer No 12/28/17 10:21am Organ Donor Yes 12/28/17 10:21am Resuscitation Status Full Code 12/28/17 10:21am Directive Response Recor ded Date/Time Advance Directives No 7:27pm Health Care Power of Car Designer No 12/25/17 7:27pm Organ Donor Yes 12/25/17 7:27pm Resuscitation Status Full Code 12/25/17 7:27pm Directive Response Recor ded Date/Time Advance Directives No 6:40pm Health Care Power of Car Designer No 12/29/17 6:40pm Organ Donor Yes 12/29/17 6:40pm Resuscitation Status Full Code 12/29/17 6:40pm Directive Response Recor ded Date/Time Advance Directives No 6:40pm Health Care Power of Car Designer No 12/29/17 6:40pm Organ Donor Yes 12/29/17 6:40pm Directive Response Recor ded Date/Time Advance Directives No 6:45am Health Care Power of Car Designer No 01/13/18 6:45am Organ Donor Yes 01/13/18 6:45am Resuscitation Status Full Code 01/13/18 6:45am Directive Response Recor ded Date/Time Advance Directives No 11:35pm Health Care Power of Car Designer No 01/13/18 11:35pm Organ Donor Yes 01/13/18 11:35pm Resuscitation Status Full Code 01/13/18 11:35pm Discharge Instructions No hospital discharge instructions.No hospital discharge instructions.No hospital discharge instructions.No hospital discharge instructions. Patient Instructions Physician Instructions New, Converted, or Re-newed RX: RX on Chart Plan Please make appointment to been seen in office in 4 weeks. Increase oral fluids for 48 hours and then as needed. Diet and Activity as tolerated. If questions or concerns contact your physician Or seek help at emergency department. No hospital discharge instructions.No hospital discharge instructions.No hospital discharge instructions.No hospital discharge instructions.No hospital discharge instructions.No hospital discharge instructions. Patient Instructions Physician Instructions New, Converted or Re-Newed RX: Transmitted to Pharmacy (Trazodone and Keflex Erx to [facility]; Xanax already called in by [facility] clinic staff) Goal/Follow Up Appt: Itz Toth APRN for Behavior Health appointment on 02/07/14 11:45am Follow-up with Dr. Hook as scheduled Discharge Diet: Low Fat/Low Cholesterol No hospital discharge instructions.No hospital discharge instructions.No hospital discharge instructions. Patient Instructions Physician Instructions New, Converted, or Re-newed RX: Call to Patient Pharmacy Goal/Follow Up Appt: Follow up with primary provider at [facility] within one week of discharge. Return to the hospital for: Fever, uncontrolled pain, inability to keep down fluids Dicharge Diet: No Restrictions Activity as Tolerated: Yes No hospital discharge instructions.No hospital discharge instructions.No hospital discharge instructions.No hospital discharge instructions. Patient Instructions Physician Instructions New, Converted or Re-Newed RX: Transmitted to Pharmacy (Trazodone and Keflex Erx to [facility] [place]; Xanax already called in by [facility] clinic staff) Goal/Follow Up Appt: Itz Toth APRN for Behavior Health appointment on 02/07/14 11:45am Follow-up with Dr. Hook as scheduled Discharge Diet: Low Fat/Low Cholesterol Patient Instructions Physician Instructions New, Converted, or Re-newed RX: Call to Patient Pharmacy Goal/Follow Up Appt: Follow up with primary provider at [facility] within one week of discharge. Return to the hospital for: Fever, uncontrolled pain, inability to keep down fluids Dicharge Diet: No Restrictions Activity as Tolerated: Yes Patient Instructions Physician Instructions New, Converted, or Re-newed RX: Call to Patient Pharmacy Goal/Follow Up Appt: Follow up with primary provider at [facility] within one week of discharge. Return to the hospital for: Fever, uncontrolled pain, inability to keep down fluids Dicharge Diet: No Restrictions Activity as Tolerated: Yes No hospital discharge instructions.No hospital discharge instructions. Patient Instructions Physician Instructions New, Converted or Re-Newed RX: Transmitted to Pharmacy (Trazodone and Keflex Erx to [facility]; Xanax already called in by [facility] clinic staff) Goal/Follow Up Appt: Itz Toth APRN for Behavior Health appointment on 02/07/14 11:45am Follow-up with Dr. Hook as scheduled Discharge Diet: Low Fat/Low Cholesterol Patient Instructions Physician Instructions New, Converted or Re-Newed RX: Transmitted to Pharmacy (Trazodone and Keflex Erx to [facility]; Xanax already called in by [facility] clinic staff) Goal/Follow Up Appt: Itz Toth APRN for Behavior Health appointment on 02/07/14 11:45am Follow-up with Dr. Hook as scheduled Discharge Diet: Low Fat/Low Cholesterol No hospital discharge instructions.No hospital discharge instructions.No hospital discharge instructions.No hospital discharge instructions. Patient Instructions Physician Instructions New, Converted, or Re-newed RX: Call to Patient Pharmacy Goal/Follow Up Appt: Follow up with primary provider at [facility] within one week of discharge. Return to the hospital for: Fever, uncontrolled pain, inability to keep down fluids Dicharge Diet: No Restrictions Activity as Tolerated: Yes No hospital discharge instructions.No hospital discharge instructions.No hospital discharge instruction information available.No hospital discharge instruction information available.No hospital discharge instruction information available.No hospital discharge instruction information available.No hospital discharge instruction information available.No hospital discharge instruction information available.No hospital discharge instruction information available.No hospital discharge instruction information available.Current inpatient/outpatient. Discharge instructions are currently unavailable.No hospital discharge instruction information available.No hospital discharge instruction information available. Additional Source Comments This clinical document has been generated using [employer] software that has been certified by the Office of the National Coordinator for Health Information Technology (ONC 15.99.04.3023.[id number]) and the National Committee for Educational Manager (NCQA, as an eMeasure certified technology). FOR RECORDS PERTAINING TO PATIENTS WHO ARE OR HAVE BEEN ENROLLED IN A CHEMICAL D EPENDENCY/SUBSTANCE ABUSE PROGRAM, SOME INFORMATION MAY BE OMITTED. This clinica l summary was aggregated from multiple sources. Caution should be exercised in using it in the provision of clinical care. This summary normalizes information from multiple sources, and as a consequence, information in this document may ma terially change the coding, format and clinical context of patient data. In paco tion, data may be omitted in some cases. CLINICAL DECISIONS SHOULD BE BASED ON T HE PRIMARY CLINICAL RECORDS. [employer] provides no warranty or guara ntee of the accuracy or completeness of information in this document.The followi ng information is based on time limited clinical information UNRECOGNIZED CONTENT PROVIDED BELOW FOR UNRECOGNIZED SECTION REASON FOR VISIT Refill requestxanax refillxanax 01/28/18Hospital f/u--tcuppettRN, f/u on kidney s tones and blood pressureBH f/u JjournotRNxanax refillxanax refillBH f/u. James ROME, Anxiety / sboducxcsrNVE-UotWWX-DsyPZO-TibEUB-IdcQZF-GarCHP-CdvIJT-HwxPOI-Wn uNLH-RbxUNO-CnvQMJ-XytXHV-OwlSAA-WenJAM-RrkGIS-FoqAUB-PcnBIL-DrmASE-NrsGCV-MuyNE D-HgtSMW-NpfKNL-TepTGA-AgaNFF-NbcRQX-SzgVWI-GtkRYG-PouXVE-FixOCM-IvyMSA-SzgQqwda al pain, Ms. Orozco states that she has vaginal pain almost all of the time--the only time she doesn't have pain is when she first wakes up. Admits to having a hysterectomy and a vaginal procedure for vaginal cancer., Also, Ms. Orozco would like something to help her lose weight--admits to watching her diet, but unable to lose any weight at all.Vaginal pain f/u, Ms. Orozco presents to our office for test results after having a Pap Smear. No other concerns, she does admit to starting her Phentermine two days ago.xanax refill
[2020-01-04] MEDS ORDERED: NAPR220T66 PO ×2 (06:35)
[2020-01-04] MEDS ORDERED: RT-ALBUINH IH ×2 (06:35)
[2020-01-04] MEDS ORDERED: CATHETER FLUSH 10 ML SYR IV PRN (06:45)
--- OUTSIDE RECORDS SUMMARY | 2020-01-04 06:50 | XMS REPORT | Continuity of Care Document ---
Demographics Preferred Language Unknown Marital Status Unknown Taoist Affiliation Unknown Race Unknown Ethnic Group Unknown [...] Drug Aller gy 08/06/2012 Yes Nitrofurantoin Macrocrystal [id number] Drug Allergy Unknown N/A 09/25/2013 Yes tramadol [id number] Drug Allergy Unknown HAS TAKEN BEFOR 01/10/2014 Yes cephalexin [id number] Drug Allerg y Mild NAUSEA 11/07/2014 Yes hydrocodone [id number] Drug Aller gy Unknown itching 12/28/2017 Yes ketorolac tromethamine [id number] Drug Allergy Unknown N/A 12/28/2017 Yes levofloxacin [id number] Drug Allergy Unknown N/A 12/28/[id number] ug Allergy Unknown N/A 12/28/2017 Yes ondansetron [id number] Drug Aller gy Unknown N/A 12/28/2017 Yes Sulfa (Sulfonamide Antibiotics) [id number] Drug Allergy Unknown N/A 018 Yes tramadol [id number] Drug Allergy Unknown N/A 12/28/2017 Yes hydrocodone [id number] Drug Aller gy Unknown itching. Pt has 12/29/2017 Yes famotidine [id number] Drug Allerg y Unknown dry heaves 01/13/2018 Yes ketorolac [id number] Drug Allergy Unknown N/A 01/13/2018 Yes SULFA SULFA Unknown N/A 01/13/2018 Yes codeine [id number] Drug Allergy Unknown N/A 01/26/2018 Medications There is no data. 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, 01/12/2006 [...] 09/19/2010 311 MO DEP RESS NOS 09/19/2010 [facility], ARSAH R 311 MO DEPRESS NOS 09/19/2010 311 MO DEP RESS NOS 09/19/2010 [facility], ARASH R 311 MO DEPRESS NOS [...] CABRERA APRN 311 MO DEPRESS NOS 09/19/2010 [facility], ARASH R 311 MO DEPRESS NOS 09/19/2010 BRODY ARAYA MD 311 MO DEPRESS NOS 09/19/2010 REYNALDO VIEIRA APRN 31 1 MO DEPRESS NOS 09/19/2010 [facility], ARASH R 311 MO DEPRESS NOS 09/19/2010 REYNALDO VIEIRA APRN T 31 1 MO DEPRESS NOS 09/19/2010 KIKA ARGUETA DO K 311 MO DEPRESS NOS 09/19/2010 [facility], ARASH R 311 MO DEPRESS NOS 09/19/2010 MARLENE CABRERA APRN 311 MO DEPRESS NOS 09/19/2010 [facility], ARASH R 311 MO DEPRESS NOS [...] DO 311 MO DEPRESS NOS 09/19/2010 SANDI CAREER PORTALS TEACHER, ITZ J 311 MO DEPRESS NOS 09/19/2010 [...] 250.00 DIABETES II CONTROLLED (UNCOMPLICATED) 03/17/2011 DARIEL CAREER PORTALS TEACHERREYNALDO Linda 27 2.4 HYPERLIPIDEMIA 03/17/2011 DARIEL CAREER PORTALS TEACHERREYNALDO Linda 300.00 ANXIETY UNSPEC 03/17/2011 DARIEL LYNNREYNALDO [...] DO, KIKA K 530.81 GERD 03/17/2011 ARGUETA KIKA K 729.1 FIBROMYALGIA 03/17/2011 250.00 HOLLY BETES II CONTROLLED (UNCOMPLICATED) 03/17/2011 272.4 HYPE RLIPIDEMIA 03/17/2011 300.00 ANX IETY UNSPEC 03/17/2011 530.81 GERD 03/17/2011 729.1 FIBR OMYALGIA 03/17/2011 [facility], ARASH R 250.00 DIABETES II CONTROLLED (UNCOMPLICATED) 03/17/2011 [facility], ARASH R 272.4 HYPERLIPIDEMIA 03/17/2011 [facility], ARASH R 300.00 ANXIETY UNSPEC 03/17/2011 [facility], ARASH R 530.81 GERD 03/17/2011 [facility], ARASH R 729.1 FIBROMYALGIA 03/17/2011 250.00 HOLLY BETES II CONTROLLED (UNCOMPLICATED) 03/17/2011 272.4 HYPE RLIPIDEMIA 03/17/2011 300.00 ANX IETY UNSPEC 03/17/2011 530.81 GERD 03/17/2011 729.1 FIBR OMYALGIA 03/17/2011 [facility], ARASH R 250.00 DIABETES II CONTROLLED (UNCOMPLICATED) 03/17/2011 [facility], ARASH R 272.4 HYPERLIPIDEMIA 03/17/2011 [facility], ARASH R 300.00 ANXIETY UNSPEC 03/17/2011 [facility], ARASH R 530.81 GERD 03/17/2011 [facility], ARASH R 729.1 FIBROMYALGIA 03/17/2011 MARLENE [...] APRN T 72 9.1 FIBROMYALGIA 03/17/2011 DARIEL CAREER PORTALS TEACHERREYNALDO Linda T 250.00 DIABETES II CONTROLLED (UNCOMPLICATED) 03/17/2011 DARIEL CAREER PORTALS TEACHERREYNALDO Linda T 27 2.4 HYPERLIPIDEMIA 03/17/2011 DARIEL LYNNAlexei REYNALDO T 300.00 ANXIETY UNSPEC 03/17/2011 DARIEL LYNNREYNALDO Linda T 530.81 GERD 03/17/2011 REYNALDO VIEIRA APRN T 72 9.1 FIBROMYALGIA 03/17/2011 DARIEL CAREER PORTALS TEACHERREYNALDO Linda T 250.00 DIABETES II CONTROLLED (UNCOMPLICATED) 03/17/2011 DARIEL CAREER PORTALS TEACHERREYNALDO Linda T 27 2.4 HYPERLIPIDEMIA 03/17/2011 DARIEL CAREER PORTALS TEACHERREYNALDO Linda T 300.00 ANXIETY UNSPEC 03/17/2011 DARIEL CAREER PORTALS TEACHERREYNALDO Linda 530.81 GERD 03/17/2011 REYNALDO VIEIRA APRN [...] DO, KIKA K 530.81 GERD 03/17/2011 BRO ARGUEAT DOA K 729.1 FIBROMYALGIA 03/17/2011 MARLENE CABRERA [...] 03/17/2011 MARLENE CABRERA APRN 729.1 FIBROMYALGIA 03/17/2011 [facility], ARASH R 250.00 DIABETES II CONTROLLED (UNCOMPLICATED) 03/17/2011 [facility] 272.4 HYPERLIPIDEMIA 03/17/2011 [facility], ARASH R 300.00 ANXIETY UNSPEC 03/17/2011 [facility], ARASH R 530.81 GERD 03/17/2011 [facility], ARASH R 729.1 FIBROMYALGIA 03/17/2011 BRODY [...] REYNALDO VIEIRA APRN 72 9.1 FIBROMYALGIA 03/17/2011 [facility], ARASH R 250.00 DIABETES II CONTROLLED (UNCOMPLICATED) 03/17/2011 [facility], ARASH R 272.4 HYPERLIPIDEMIA 03/17/2011 [facility] 300.00 ANXIETY UNSPEC 03/17/2011 [facility] 530.81 GERD 03/17/2011 [facility] 729.1 FIBROMYALGIA 03/17/2011 REYNALDO VIEIRA APRN 250.00 DIABETES II CONTROLLED (UNCOMPLICATED) 03/17/2011 REYNALDO VIEIRA APRN 27 2.4 HYPERLIPIDEMIA 03/17/2011 REYNALDO VIEIRA APRN T 300.00 ANXIETY UNSPEC 03/17/2011 REYNALDO VIEIRA APRN T 530.81 GERD 03/17/2011 REYNALDO VIEIRA APRN 72 9.1 FIBROMYALGIA 03/17/2011 KIKA ARGUETA DO 250.00 DIABETES II CONTROLLED (UNCOMPLICATED) 03/17/2011 BRO ARGUETA DOA K 272.4 HYPERLIPIDEMIA 03/17/2011 [facility], KIKA K 300.00 ANXIETY UNSPEC 03/17/2011 [facility], KIKA K 530.81 GERD 03/17/2011 KIKA ARGUETA DO K 729.1 FIBROMYALGIA 03/17/2011 [facility], ARASH R 250.00 DIABETES II CONTROLLED (UNCOMPLICATED) 03/17/2011 [facility], ARASH R 272.4 HYPERLIPIDEMIA 03/17/2011 [facility], ARASH R 300.00 ANXIETY UNSPEC 03/17/2011 [facility], ARASH R 530.81 GERD 03/17/2011 [facility], ARASH R 729.1 FIBROMYALGIA 03/17/2011 MARLENE CABRERA APRN 250.00 DIABETES II CONTROLLED (UNCOMPLICATED) 03/17/2011 MARLENE CABRERA APRN 272.4 HYPERLIPIDEMIA 03/17/2011 MARLENE CABRERA APRN 300.00 ANXIETY UNSPEC 03/17/2011 MARLENE CABRERA APRN 530.81 GERD 03/17/2011 MARLENE CABRERA APRN 729.1 FIBROMYALGIA 03/17/2011 [facility], ARASH R 250.00 DIABETES II CONTROLLED (UNCOMPLICATED) 03/17/2011 [facility], ARASH R 272.4 HYPERLIPIDEMIA 03/17/2011 [facility], ARASH R 300.00 ANXIETY UNSPEC 03/17/2011 [facility], ARASH R 530.81 GERD 03/17/2011 [facility], ARASH R 729.1 FIBROMYALGIA 03/17/2011 ITZ [...] BENJI CARDOZO 27 2.4 HYPERLIPIDEMIA 03/17/2011 [facility] MKIES, BENJI 300.00 ANXIETY UNSPEC 03/17/2011 [facility] DDS, [...] J 300.00 ANXIETY UNSPEC 03/17/2011 SANDI LASSITER, TIZ J 530.81 GERD 03/17/2011 CLAUDE JUNIOR APRNINDA J 729.1 FIBROMYALGIA 03/17/2011 SANDI LASSITER, ITZ J 250.00 DIABETES II CONTROLLED (UNCOMPLICATED) 03/17/2011 SANDI LASSITER ITZ J 272.4 HYPERLIPIDEMIA 03/17/2011 SANDI CARE[employer] PORTALS TE[employer], ITZ J 300.00 ANXIETY UNSPEC 03/17/2011 SANDI [...] 465.9 UPPE R RESPIRATORY INFECTION [facility]/02/[facility].9 UPPER RESPIRATORY INFECTION 04/02/2011 465.9 UPPE R RESPIRATORY INFECTION 04/02/2011 [facility], ARASH R 465.9 UPPER RESPIRATORY INFECTION [...] APRN D 465.9 Upper Respiratory Infection 04/02/2011 [facility], ARASH R 465.9 Upper Respiratory Infection 04/02/2011 BRODY ARAYA MD 465 .9 Upper Respiratory Infection 04/02/2011 REYNALDO VIEIRA APRN T 46 5.9 Upper Respiratory Infection 04/02/2011 [facility], ARASH R 465.9 Upper Respiratory Infection 04/02/2011 REYNALDO VIEIRA APRN T 46 5.9 Upper Respiratory Infection 04/02/2011 BRO ARGUETA DOA K 465.9 Upper Respiratory Infection 04/02/2011 [facility], ARASH R 465.9 Upper Respiratory Infection 04/02/2011 MARLENE CABRERA APRN D 465.9 Upper Respiratory Infection 04/02/2011 [facility], ARASH R 465.9 Upper Respiratory Infection 04/02/2011 ITZ JUNIOR APRN J 465.9 Upper Respiratory Infection 04/02/2011 ITZ JUNIOR APRN J 465.9 Upper Respiratory Infection 04/02/2011 BRODY ARAYA MD 465 .9 Upper Respiratory Infection 04/02/2011 BRODY ARAYA MD [...] INFECTION 04/15/2011 780.52 INS OMNIA UNSPECIFIED 04/15/2011 [facility], ARASH R 599.0 URINARY TRACT INFECTION 04/15/2011 [facility], ARASH R 780.52 INSOMNIA UNSPECIFIED 04/15/2011 599.0 URIN REMY TRACT INFECTION 04/15/2011 780.52 INS OMNIA UNSPECIFIED 04/15/2011 [facility], ARASH R 599.0 URINARY TRACT INFECTION 04/15/2011 [facility], ARASH R 780.52 INSOMNIA UNSPECIFIED 04/15/2011 [...] MARLENE CABRERA APRN 780.52 INSOMNIA UNSPECIFIED 04/15/2011 [facility], ARASH R 599.0 Urinary Tract Infection 04/15/2011 [facility], ARASH R 780.52 INSOMNIA UNSPECIFIED 04/15/2011 BRODY ARAYA MD N 599 .0 Urinary Tract Infection 04/15/2011 BRODY ARAYA MD N 780 .52 INSOMNIA UNSPECIFIED 04/15/2011 REYNALDO VIEIRA APRN T 59 9.0 Urinary Tract Infection 04/15/2011 REYNALDO VIEIRA APRN T 780.52 INSOMNIA UNSPECIFIED 04/15/2011 [facility], ARASH R 599.0 Urinary Tract Infection 04/15/2011 [facility], ARASH R 780.52 INSOMNIA UNSPECIFIED 04/15/2011 REYNALDO VIEIRA APRN T 59 9.0 Urinary Tract Infection 04/15/2011 REYNALDO VIEIRA APRN T 780.52 INSOMNIA UNSPECIFIED 04/15/2011 ARGUETA DO, KIKA K 599.0 Urinary Tract Infection 04/15/2011 ARGUETA DO, KIKA K 780.52 INSOMNIA UNSPECIFIED 04/15/2011 [facility], ARASH R 599.0 Urinary Tract Infection 04/15/2011 [facility], ARASH R 780.52 INSOMNIA UNSPECIFIED 04/15/2011 MARLENE CABRERA APRN 599.0 Urinary Tract Infection 04/15/2011 MARLENE CABRERA APRN 780.52 INSOMNIA UNSPECIFIED 04/15/2011 [facility], ARASH R 599.0 Urinary Tract Infection 04/15/2011 [facility], ARASH R 780.52 INSOMNIA UNSPECIFIED 04/15/2011 SANDI LASSITER, ITZ J 599.0 Urinary Tract Infection 04/15/2011 SANDI LASSITER ITZ J 780.52 INSOMNIA UNSPECIFIED 04/15/2011 SANDI C[employer], ITZ J 599.0 Urinary Tract Infection 04/15/2011 SANDI LASSITER, ITZ J 780.52 INSOMNIA UNSPECIFIED 04/15/2011 BRODY ARAYA MD N 599 .0 Urinary Tract Infection 04/15/2011 BRODY ARAYA MD N 780 .52 INSOMNIA UNSPECIFIED 04/15/2011 BRODY ARAYA MD N 599 .0 Urinary Tract Infection 04/15/2011 BRODY ARAYA MD N 780 .52 INSOMNIA UNSPECIFIED 04/15/2011 SANDI C[employer], ITZ J 599.0 Urinary Tract Infection 04/15/2011 [...] BREATH 05/12/[address] PAIN 05/12/2011 ARGUETA DO, KIKA K 786.05 SHORTNESS OF BREATH 05/12/2011 ARGUETA DO, KIKA K 786.50 CHEST PAIN 05/12/2011 786.05 NENA RTNESS OF BREATH 05/12/[address] PAIN 05/12/2011 [facility], ARASH R 786.05 SHORTNESS OF BREATH 05/12/2011 [facility], ARASH R 786.50 CHEST PAIN 05/12/2011 786.05 NENA RTNESS OF BREATH 05/12/[address] PAIN 05/12/2011 [facility], ARASH R 786.05 SHORTNESS OF BREATH 05/12/2011 [facility], ARASH R 786.50 CHEST PAIN 05/12/2011 [...] 05/12/[address] PAIN 05/12/2011 786.05 Nnea rtness Of Breath 05/12/[address] [...] MARLENE CABRERA APRN 786.50 CHEST PAIN 05/12/2011 [facility], ARASH R 786.05 Shortness Of Breath 05/12/2011 [facility], ARASH R 786.50 CHEST PAIN 05/12/2011 BRODY ARAYA MD 786 .05 Shortness Of Breath 05/12/2011 BRODY ARAYA MD 786 .50 CHEST PAIN 05/12/2011 REYNALDO VIEIRA APRN T 786.05 Shortness Of Breath 05/12/2011 REYNALDO VIEIRA APRN T 786.50 CHEST PAIN 05/12/2011 [facility] 786.05 Shortness Of Breath 05/12/2011 [facility], ARASH R 786.50 CHEST PAIN 05/12/2011 REYNALDO VIEIRA APRN T 786.05 Shortness Of Breath 05/12/2011 REYNALDO VIEIRA APRN T 786.50 CHEST PAIN 05/12/2011 ARGUETA DO, KIKA K 786.05 Shortness Of Breath 05/12/2011 ARGUETA DO, KIKA K 786.50 CHEST PAIN 05/12/2011 [facility], ARASH R 786.05 Shortness Of Breath 05/12/2011 [facility] 786.50 CHEST PAIN 05/12/2011 MARLENE CABRERA APRN 786.05 Shortness Of Breath 05/12/2011 MARLENE CABRERA APRN 786.50 CHEST PAIN 05/12/2011 [facility], ARASH R 786.05 Shortness Of Breath 05/12/2011 [facility] 786.50 CHEST PAIN 05/12/2011 SANDI [...] ITZ J 786.50 CHEST PAIN 05/12/2011 SANDI C[employer], ITZ J 786.05 Shortness Of Breath 05/12/2011 SANDI CAREER PORTALS TE[employer], ITZ J 786.50 CHEST PAIN 05/12/2011 SANDI CAREER PORT[employer] TE[employer], ITZ J 786.05 Shortness Of Breath 05/12/2011 SANDI CAREER PORTALS TE[employer]ER, ITZ J 786.50 CHEST PAIN 05/12/2011 WERDER DO, MASSIEL F 786 .05 SHORTNESS OF BREATH 05/12/2011 WERDER DO, MASSIEL F 786 .50 CHEST PAIN 05/12/2011 SANDI C[employer], ITZ J 786.05 Shortness Of Breath 05/12/2011 [...] 477.9 RHINITIS 06/24/2011 477.9 RHINITIS 06/24/2011 [facility] 477.9 RHINITIS 06/24/2011 477.9 RHINITIS 06/24/2011 [facility] 477.9 RHINITIS 06/24/2011 MARLENE CABRERA APRN 477.9 [...] 06/24/2011 MARLENE CABRERA APRN 477.9 Rhinitis 06/24/2011 [facility], ARASH R 477.9 Rhinitis 06/24/2011 BRODY ARAYA MD 477 .9 Rhinitis 06/24/2011 REYNALDO VIEIRA APRN 47 7.9 Rhinitis 06/24/2011 [facility], ARASH R 477.9 Rhinitis 06/24/2011 REYNALDO VIEIRA APRN 47 7.9 Rhinitis 06/24/2011 KIKA ARGUETA DO K 477.9 Rhinitis 06/24/2011 [facility], ARASH R 477.9 Rhinitis 06/24/2011 MARLENE CABRERA APRN 477.9 Rhinitis 06/24/2011 [facility], ARASH R 477.9 Rhinitis 06/24/2011 ITZ [...] 07/14/2011 780.57 SLE EP APNEA 07/14/2011 [facility] 780.57 SLEEP APNEA 07/14/2011 780.57 SLE EP APNEA 07/14/2011 [facility] 780.57 SLEEP APNEA 07/14/2011 MARLENE CABRERA [...] MARLENE CABRERA APRN 780.57 SLEEP APNEA 07/14/2011 [facility], ARASH R 780.57 SLEEP APNEA 07/14/2011 BRODY ARAYA MD 780 .57 SLEEP APNEA 07/14/2011 REYNALDO VIEIRA APRN 780.57 SLEEP APNEA 07/14/2011 [facility], ARASH R 780.57 SLEEP APNEA 07/14/2011 REYNALDO VIEIRA APRN 780.57 SLEEP APNEA 07/14/2011 KIKA ARGUETA DO 780.57 SLEEP APNEA 07/14/2011 [facility], ARASH R 780.57 SLEEP APNEA 07/14/2011 MARLENE CABRERA APRN 780.57 SLEEP APNEA 07/14/2011 [facility], ARASH R 780.57 SLEEP APNEA 07/14/2011 [...] JUNIOR APRN J 780.57 SLEEP APNEA 07/14/2011 MASSILE FERGUSON DO 780 .57 SLEEP APNEA 07/14/2011 ITZ JUNIOR APRN 780.57 SLEEP APNEA 07/14/2011 KIKA ARGUETA DO K 780.57 SLEEP APNEA 07/29/2011 Ot 327.23 08/06/2011 V72.31 Hris Specialist Exam, Routine 08/06/2011 REYNALDO VIEIRA APRN V72.31 Hris Specialist Exam, Routine 08/06/2011 V72.31 Hris Specialist Exam, Routine 08/06/2011 KIKA ARGUETA DO V72.31 Hris Specialist Exam, Routine 08/06/2011 V72.31 Hris Specialist Exam, Routine 08/06/2011 [facility], ARASH R V72.31 Hris Specialist Exam, Routine 08/06/2011 V72.31 Hris Specialist Exam, Routine 08/06/2011 [facility], ARASH R V72.31 Hris Specialist Exam, Routine 08/06/2011 MARLENE CABRERA APRN V72.31 Hris Specialist Exam, Routine 08/06/2011 V72.31 Hris Specialist Exam, Routine 08/06/2011 V72.31 Hris Specialist Exam, Routine 08/06/2011 V72.31 Hris Specialist Exam, Routine 08/06/2011 V72.31 Hris Specialist Exam, Routine 08/06/2011 V72.31 Hris Specialist Exam, Routine 08/06/2011 V72.31 Hris Specialist Exam, Routine 08/06/2011 V72.31 Hris Specialist Exam, Routine 08/06/2011 V72.31 Hris Specialist Exam, Routine 08/06/2011 V72.31 Hris Specialist Exam, Routine 08/06/2011 V72.31 Hris Specialist Exam, Routine 08/06/2011 V72.31 Hris Specialist Exam, Routine 08/06/2011 V72.31 Hris Specialist Exam, Routine 08/06/2011 V72.31 Hris Specialist Exam, Routine 08/06/2011 REYNALDO VIEIRA APRN V72.31 Hris Specialist Exam, Routine 08/06/2011 REYNALDO VIEIRA APRN V72.31 Hris Specialist Exam, Routine 08/06/2011 REYNALDO VIEIRA APRN V72.31 Hris Specialist Exam, Routine 08/06/2011 KEZIA SAUCEDO, SABIHA V72.3 1 Hris Specialist Exam, Routine 08/06/2011 KIKA ARGUETA DO V72.31 Hris Specialist Exam, Routine 08/06/2011 MARLENE CABRERA APRN V72.31 Hris Specialist Exam, Routine 08/06/2011 MARLENE CABRERA APRN V72.31 Hris Specialist Exam, Routine 08/06/2011 [facility], ARASH R V72.31 Hris Specialist Exam, Routine 08/06/2011 MARSHAL SAUCEDO, BRODY Linda V72 .31 Hris Specialist Exam, Routine 08/06/2011 REYNALDO VIEIRA APRN V72.31 Hris Specialist Exam, Routine 08/06/2011 [facility], ARSAH Saucedo V72.31 Hris Specialist Exam, Routine 08/06/2011 REYNALDO VIEIRA APRN V72.31 Hris Specialist Exam, Routine 08/06/2011 KIKA ARGUETA DO V72.31 Hris Specialist Exam, Routine 08/06/2011 [facility], ARASH R V72.31 Hris Specialist Exam, Routine 08/06/2011 MARLENE CABRERA APRN V72.31 Hris Specialist Exam, Routine 08/06/2011 [facility], ARASH Saucedo V72.31 Hris Specialist Exam, Routine 08/06/2011 ITZ JUNIOR APRN V72.31 Hris Specialist Exam, Routine 08/06/2011 ITZ JUNIOR APRN V72.31 Hris Specialist Exam, Routine 08/06/2011 MARSHAL SAUCEDO, BRODY Linda V72 .31 Hris Specialist Exam, Routine 08/06/2011 BRODY ARAYA MD V72 .31 Hris Specialist Exam, Routine 08/06/2011 ITZ JUNIOR APRN V72.31 Hris Specialist Exam, Routine 08/06/2011 BENJI ACOSTA DDS V72.31 Hris Specialist Exam, Routine 08/06/2011 BENJI ACOSTA DDS V72.31 Hris Specialist Exam, Routine 08/06/2011 KEZIA SAUCEDO, SABIHA V72.3 1 Hris Specialist Exam, Routine 08/06/2011 KIKA ARGUETA DO V72.31 Hris Specialist Exam, Routine 08/06/2011 ITZ JUNIOR APRN V72.31 Hris Specialist Exam, Routine 08/06/2011 ITZ JUNIOR APRN V72.31 Hris Specialist Exam, Routine 08/06/2011 ITZ JUNIOR APRN V72.31 Hris Specialist Exam, Routine 08/06/2011 MASSIEL FERGUSON DO V72 .31 Hris Specialist Exam, Routine 08/06/2011 ITZ JUNIOR APRN V72.31 Hris Specialist Exam, Routine 08/06/2011 KIKA ARGUETA DO V72.31 Hris Specialist Exam, Routine 10/12/2011 Ot 780.39 11/29/2011 Ot [...] 01/05/2012 E888.9 UNS PECIFIED ACCIDENTAL FALL 01/05/2012 [facility], ARASH R 780.39 OTHER CONVULSIONS 01/05/2012 [facility], ARASH R 780.93 MEMORY LOSS 01/05/2012 [facility], ARASH R E888.9 UNSPECIFIED ACCIDENTAL FALL 01/05/2012 780.39 OTH ER CONVULSIONS 01/05/2012 780.93 MEM ORY LOSS 01/05/2012 E888.9 UNS PECIFIED ACCIDENTAL FALL 01/05/2012 [facility], ARASH R 780.39 OTHER CONVULSIONS 01/05/2012 [facility], ARASH R 780.93 MEMORY LOSS 01/05/2012 [facility], ARASH R E888.9 UNSPECIFIED ACCIDENTAL FALL [...] CABRERA APRN E888.9 Unspecified Accidental Fall 01/05/2012 [facility], ARASH R 780.39 OTHER CONVULSIONS 01/05/2012 [facility], ARASH R 780.93 Memory Loss 01/05/2012 [facility], ARASH R E888.9 Unspecified Accidental Fall 01/05/2012 BRODY ARAYA MD 780 .39 OTHER CONVULSIONS 01/05/2012 BRODY ARAYA MD 780 .93 Memory Loss 01/05/2012 BRODY ARAYA MD E88 8.9 Unspecified Accidental Fall 01/05/2012 REYNALDO VIEIRA APRN 780.39 OTHER CONVULSIONS 01/05/2012 REYNALDO VIEIRA APRN 780.93 Memory Loss 01/05/2012 REYNALDO VIEIRA APRN T E888.9 Unspecified Accidental Fall 01/05/2012 [facility], ARASH R 780.39 OTHER CONVULSIONS 01/05/2012 [facility], ARASH R 780.93 Memory Loss 01/05/2012 [facility], ARASH R E888.9 Unspecified Accidental Fall 01/05/2012 REYNALDO VIEIRA APRN T 780.39 OTHER CONVULSIONS 01/05/2012 REYNALDO VIEIRA APRN T 780.93 Memory Loss 01/05/2012 REYNALDO VIEIRA APRN T E888.9 Unspecified Accidental Fall 01/05/2012 [facility] DO, KIKA K 780.39 OTHER CONVULSIONS 01/05/2012 [facility] DO, KIKA K 780.93 Memory Loss 01/05/2012 ARGUETA DO, KIKA K E888.9 Unspecified Accidental Fall 01/05/2012 [facility], ARASH R 780.39 OTHER CONVULSIONS 01/05/2012 [facility], ARASH R 780.93 Memory Loss 01/05/2012 [facility], ARASH R E888.9 Unspecified Accidental Fall 01/05/2012 MARLENE CABRERA APRN 780.39 OTHER CONVULSIONS 01/05/2012 MARLENE CABRERA APRN 780.93 Memory Loss 01/05/2012 MARLENE CABRERA APRN E888.9 Unspecified Accidental Fall 01/05/2012 [facility], ARASH R 780.39 OTHER CONVULSIONS 01/05/2012 [facility], ARASH R 780.93 Memory Loss 01/05/2012 [facility], ARASH R E888.9 Unspecified Accidental Fall [...] JUNIOR APRN E888.9 Unspecified Accidental Fall 01/05/2012 KARLA [...] MODERATE 02/21/2012 300.02 AN GEN ANXIETY 02/21/2012 [facility].32 MO DEPRESSIVE RECURRENT MODERATE 02/21/2012 [facility] AN GEN ANXIETY 02/21/2012 296.32 MO DEPRESSIVE RECURRENT MODERATE 02/21/2012 300.02 AN GEN ANXIETY 02/21/2012 [facility] [place] DEPRESSIVE RECURRENT MODERATE 02/21/2012 [facility], ARASH Saucedo 300.02 AN GEN ANXIETY [...] CABRERA APRN 300.02 AN GEN ANXIETY 02/21/2012 [facility], ARASH R 296.32 MO DEPRESSIVE RECURRENT MODERATE 02/21/2012 [facility], ARASH R 300.02 AN GEN ANXIETY 02/21/2012 BRODY ARAYA MD 296 .32 MO DEPRESSIVE RECURRENT MODERATE 02/21/2012 BRODY ARAYA MD 300 .02 AN GEN ANXIETY 02/21/2012 REYNALDO VIEIRA APRN 296.32 MO DEPRESSIVE RECURRENT MODERATE 02/21/2012 REYNALDO VIEIRA APRN 300.02 AN GEN ANXIETY 02/21/2012 [facility], ARASH R 296.32 MO DEPRESSIVE RECURRENT MODERATE 02/21/2012 [facility], ARASH R 300.02 AN GEN ANXIETY 02/21/2012 REYNALDO VIEIRA APRN 296.32 MO DEPRESSIVE RECURRENT MODERATE 02/21/2012 REYNALDO VIEIRA APRN 300.02 AN GEN ANXIETY 02/21/2012 KIKA ARGUETA DO K 296.32 MO DEPRESSIVE RECURRENT MODERATE 02/21/2012 KIKA ARGUETA DO K 300.02 AN GEN ANXIETY 02/21/2012 [facility], ARASH R 296.32 MO DEPRESSIVE RECURRENT MODERATE 02/21/2012 [facility], ARASH R 300.02 AN GEN ANXIETY 02/21/2012 MARLENE CABRERA APRN 296.32 MO DEPRESSIVE RECURRENT MODERATE 02/21/2012 MARLENE CABRERA APRN 300.02 AN GEN ANXIETY 02/21/2012 [facility], ARASH R 296.32 MO DEPRESSIVE RECURRENT MODERATE 02/21/2012 [facility], ARASH R 300.02 AN GEN ANXIETY [...] AN PTSD 04/30/2012 309.81 AN PTSD 04/30/2012 [facility] 309.81 AN PTSD 04/30/2012 309.81 AN PTSD 04/30/2012 [facility] 309.81 AN PTSD 04/30/2012 MARLENE CABRERA [...] MARLENE CABRERA APRN 309.81 AN PTSD 04/30/2012 [facility] 309.81 AN PTSD 04/30/2012 MARSHAL SAUCEDO, BRODY Linda 309 .81 AN PTSD 04/30/2012 REYNALDO VIEIRA APRN 309.81 AN PTSD 04/30/2012 [facility], ARASH R 309.81 AN PTSD 04/30/2012 REYNALDO VIEIRA APRN 309.81 AN PTSD 04/30/2012 KIKA ARGUETA DO 309.81 AN PTSD 04/30/2012 [facility], ARASH R 309.81 AN PTSD 04/30/2012 MARLENE CABRERA APRN 309.81 AN PTSD 04/30/2012 [facility], ARASH R 309.81 AN PTSD 04/30/2012 [...] UNSP 05/21/2012 357.9 NEUR OPATHY UNSP 05/21/2012 [facility] UNSP 05/21/2012 357.9 NEUR OPATHY UNSP 05/21/2012 [facility] 357.9 NEUROPATHY UNSP 05/21/2012 MARLENE [...] MARLENE CABRERA APRN 357.9 NEUROPATHY UNSP 05/21/2012 [facility], ARASH R 357.9 NEUROPATHY UNSP 05/21/2012 BRODY ARAYA MD 357 .9 NEUROPATHY UNSP 05/21/2012 REYNALDO VIEIRA APRN 35 7.9 NEUROPATHY UNSP 05/21/2012 [facility], ARASH R 357.9 NEUROPATHY UNSP 05/21/2012 REYNALDO VIEIRA APRN 35 7.9 NEUROPATHY UNSP 05/21/2012 KIKA ARGUETA DO 357.9 NEUROPATHY UNSP 05/21/2012 [facility], ARASH R 357.9 NEUROPATHY UNSP 05/21/2012 MARLENE CABRERA APRN 357.9 NEUROPATHY UNSP 05/21/2012 [facility], ARASH R 357.9 NEUROPATHY UNSP 05/21/2012 [...] SABIHA MAST MD 357.9 NEUROPATHY UNSP 05/21/2012 KIAK ARGUETA DO 357.9 NEUROPATHY UNSP 05/21/2012 ITZ [...] V76.47 VAG INAL PAP SMEAR SCREENING 07/07/2012 [facility] 611.71 BREAST PAIN 07/07/2012 [facility] 611.72 BREAST LUMP OR MASS 07/07/2012 [facility] V73.81 HPV SCREENING 07/07/2012 [facility] V76.10 BREAST CANCER SCREENING 07/07/2012 [facility] V76.47 VAGINAL PAP SMEAR SCREENING 07/07/2012 611.71 DOMINICK AST PAIN 07/07/2012 611.72 DOMINICK AST LUMP OR MASS 07/07/2012 V73.81 HPV SCREENING 07/07/2012 V76.10 DOMINICK AST CANCER SCREENING 07/07/2012 V76.47 VAG INAL PAP SMEAR SCREENING 07/07/2012 [facility], ARASH R 611.71 BREAST PAIN 07/07/2012 [facility], ARASH R 611.72 BREAST LUMP OR MASS 07/07/2012 [facility], ARASH R V73.81 HPV SCREENING 07/07/2012 [facility], ARASH R V76.10 BREAST CANCER SCREENING 07/07/2012 [facility], ARASH R V76.47 VAGINAL PAP SMEAR [...] APRN V76.47 VAGINAL PAP SMEAR SCREENING 07/07/2012 [facility], ARASH R 611.71 BREAST PAIN 07/07/2012 [facility], ARASH R 611.72 BREAST LUMP OR MASS 07/07/2012 [facility], ARASH R V73.81 HPV SCREENING 07/07/2012 [facility], ARASH R V76.10 BREAST CANCER SCREENING 07/07/2012 [facility], ARASH R V76.47 VAGINAL PAP SMEAR [...] APRN V76.47 VAGINAL PAP SMEAR SCREENING 07/07/2012 [facility], ARASH R 611.71 BREAST PAIN 07/07/2012 [facility], ARASH R 611.72 BREAST LUMP OR MASS 07/07/2012 [facility], ARASH R V73.81 HPV SCREENING 07/07/2012 [facility], ARASH R V76.10 BREAST CANCER SCREENING 07/07/2012 [facility], ARASH R V76.47 VAGINAL PAP SMEAR [...] K V76.47 VAGINAL PAP SMEAR SCREENING 07/07/2012 [facility], ARASH R 611.71 BREAST PAIN 07/07/2012 [facility], ARASH R 611.72 BREAST LUMP OR MASS 07/07/2012 [facility], ARASH R V73.81 HPV SCREENING 07/07/2012 [facility], ARASH R V76.10 BREAST CANCER SCREENING 07/07/2012 [facility], ARASH R V76.47 VAGINAL PAP SMEAR SCREENING 07/07/2012 MARLENE CABRERA APRN 611.71 BREAST PAIN 07/07/2012 MARLENE CABRERA APRN 611.72 BREAST LUMP OR MASS 07/07/2012 MARLENE CABRERA APRN V73.81 HPV SCREENING 07/07/2012 MARLENE CABRERA APRN V76.10 BREAST CANCER SCREENING 07/07/2012 MARLENE CABRERA APRN V76.47 VAGINAL PAP SMEAR SCREENING 07/07/2012 [facility], ARASH R 611.71 BREAST PAIN 07/07/2012 [facility], ARASH R 611.72 BREAST LUMP OR MASS 07/07/2012 [facility], ARASH R V73.81 HPV SCREENING 07/07/2012 [facility], ARASH R V76.10 BREAST CANCER SCREENING 07/07/2012 [facility], ARASH R V76.47 VAGINAL PAP SMEAR SCREENING 07/07/2012 ITZ JUNIOR APRN 611.71 BREAST PAIN 07/07/2012 ITZ JUNIOR APRN 611.72 BREAST LUMP OR MASS 07/07/2012 ROSA JUNIOR APRNA J V73.81 HPV SCREENING 07/07/2012 ROSA JUNIOR APRNA J V76.10 BREAST CANCER SCREENING 07/07/2012 ROSA JUNIOR APRNA Merrick V76.47 VAGINAL PAP SMEAR SCREENING 07/07/2012 ROSA JNUIOR APRNA J 611.71 BREAST PAIN 07/07/2012 ROSA [...] .47 VAGINAL PAP SMEAR SCREENING 07/07/2012 [employer], ITZ J 611.71 BREAST PAIN 07/07/2012 [employer], ITZ J 611.72 BREAST LUMP OR MASS 07/07/2012 [employer], ITZ J V73.81 HPV SCREENING 07/07/2012 SANDI [...] ITZ J 611.71 BREAST PAIN 07/07/2012 [employer] ITZ J 611.72 BREAST LUMP OR MASS 07/07/2012 [employer] ITZ J V73.81 HPV SCREENING 07/07/2012 [employer], ITZ J V76.10 BREAST CANCER SCREENING 07/07/2012 SANDI LASSITER ITZ J V76.47 VAGINAL PAP SMEAR SCREENING 07/07/2012 SANDI LASSITER ITZ J 611.71 BREAST PAIN 07/07/2012 SANDI LASSITER ITZ J 611.72 BREAST LUMP OR MASS 07/07/2012 SANDI LASSITER ITZ J V73.81 HPV SCREENING 07/07/2012 [employer], ITZ J V76.10 BREAST CANCER SCREENING 07/07/2012 [employer], ITZ J V76.47 VAGINAL PAP SMEAR SCREENING 07/07/2012 SANDI LASSITER ITZ J 611.71 BREAST PAIN 07/07/2012 SANDI LASSITER ITZ J 611.72 BREAST LUMP OR MASS 07/07/2012 [employer], ITZ J V73.81 HPV SCREENING 07/07/2012 [employer] ITZ J V76.10 BREAST CANCER SCREENING 07/07/2012 S[employer] TE[employer], ITZ J V76.47 VAGINAL PAP SMEAR SCREENING 07/07/2012 [employer], ITZ J 611.71 BREAST PAIN 07/07/2012 [employer], ITZ J 611.72 BREAST LUMP OR MASS 07/07/2012 [employer], ITZ J V73.81 HPV SCREENING 07/07/2012 [employer], ITZ J V76.10 BREAST CANCER SCREENING 07/07/2012 [employer], ITZ J V76.47 VAGINAL PAP SMEAR SCREENING [...] MARLENE CABRERA APRN 787.02 NAUSEA ALONE 09/16/2012 [facility] 461.9 SINUSITIS ACUTE 09/16/2012 [facility] ARASH R 784.0 HEADACHE 09/16/2012 [facility] 787.02 NAUSEA ALONE 09/16/2012 BRODY ARAYA MD 461 .9 SINUSITIS ACUTE 09/16/2012 BRODY ARAYA MD N 784 .0 HEADACHE 09/16/2012 BRODY ARAYA MD 787 .02 NAUSEA ALONE 09/16/2012 REYNALDO VIEIRA APRN T 46 1.9 SINUSITIS ACUTE 09/16/2012 REYNALDO VIEIRA APRN T 78 4.0 HEADACHE 09/16/2012 REYNALDO VIEIRA APRN T 787.02 NAUSEA ALONE 09/16/2012 [facility], ARASH R 461.9 SINUSITIS ACUTE 09/16/2012 [facility], ARASH R 784.0 HEADACHE 09/16/2012 [facility], ARASH R 787.02 NAUSEA ALONE 09/16/2012 REYNALDO VIEIRA APRN T 46 1.9 SINUSITIS ACUTE 09/16/2012 REYNALDO VIEIRA APRN T 78 4.0 HEADACHE 09/16/2012 REYNALDO VIEIRA APRN T 787.02 NAUSEA ALONE 09/16/2012 ARGUETA DO, KIKA K 461.9 SINUSITIS ACUTE 09/16/2012 ARGUETA DO, KIKA K 784.0 HEADACHE 09/16/2012 ARGUETA DO, KIKA K 787.02 NAUSEA ALONE 09/16/2012 [facility], ARASH R 461.9 SINUSITIS ACUTE 09/16/2012 [facility], ARASH R 784.0 HEADACHE 09/16/2012 [facility], ARASH R 787.02 NAUSEA ALONE 09/16/2012 MARLENE CABRERA APRN 461.9 SINUSITIS ACUTE 09/16/2012 MARLENE CABRERA APRN 784.0 HEADACHE 09/16/2012 MARLENE CABRERA APRN 787.02 NAUSEA ALONE 09/16/2012 [facility], ARASH R 461.9 SINUSITIS ACUTE 09/16/2012 [facility], ARASH R 784.0 HEADACHE 09/16/2012 [facility], ARASH R 787.02 NAUSEA ALONE 09/16/2012 [...] MARLENE CABRERA APRN 788.1 DYSURIA 09/22/2012 [facility], ARASH Saucedo 788.1 DYSURIA 09/22/2012 MARSHAL SAUCEDO, BRODY N 788 .1 DYSURIA 09/22/2012 REYNALDO VIEIRA APRN T 78 8.1 DYSURIA 09/22/2012 [facility], ARASH R 788.1 DYSURIA 09/22/2012 REYNALDO VIEIRA APRN 78 8.1 DYSURIA 09/22/2012 ARGUETA KIKA DE LA TORRE K 788.1 DYSURIA 09/22/2012 [facility], ARASH R 788.1 DYSURIA 09/22/2012 MARLENE CABRERA APRN 788.1 DYSURIA 09/22/2012 [facility], ARASH R 788.1 DYSURIA 09/22/2012 ROSA [...] APRN 724.5 BACK PAIN, GENERAL 11/15/2012 [facility], ARASH R 724.5 BACK PAIN, GENERAL 11/15/2012 BRODY ARAYA MD 724 .5 BACK PAIN, GENERAL 11/15/2012 REYNALDO VIEIRA APRN 72 4.5 BACK PAIN, GENERAL 11/15/2012 [facility], ARASH R 724.5 BACK PAIN, GENERAL 11/15/2012 REYNALDO VIEIRA APRN 72 4.5 BACK PAIN, GENERAL 11/15/2012 KIKA ARGUETA DO 724.5 BACK PAIN, GENERAL 11/15/2012 [facility], ARASH R 724.5 BACK PAIN, GENERAL 11/15/2012 MARLENE CABRERA APRN 724.5 BACK PAIN, GENERAL 11/15/2012 [facility], ARASH R 724.5 BACK PAIN, GENERAL [...] MARLENE CABRERA APRN 466.0 ACUTE BRONCHITIS 12/25/2012 [facility], ARASH R 466.0 ACUTE BRONCHITIS 12/25/2012 BRODY ARAYA MD 466 .0 ACUTE BRONCHITIS 12/25/2012 REYNALDO VIEIRA APRN 46 6.0 ACUTE BRONCHITIS 12/25/2012 [facility], ARASH R 466.0 ACUTE BRONCHITIS 12/25/2012 REYNALDO VIEIRA APRN 46 6.0 ACUTE BRONCHITIS 12/25/2012 ARGUETA KIKA DE LA TORRE K 466.0 ACUTE BRONCHITIS 12/25/2012 [facility], ARASH R 466.0 ACUTE BRONCHITIS 12/25/2012 MARLENE CABRERA APRN 466.0 ACUTE BRONCHITIS 12/25/2012 [facility], ARASH R 466.0 ACUTE BRONCHITIS 12/25/2012 [...] DOKIKA K 466.0 ACUTE BRONCHITIS 12/25/2012 [employer], ITZ J 466.0 ACUTE BRONCHITIS 12/25/2012 [employer], ITZ J 466.0 ACUTE BRONCHITIS 12/25/2012 [employer], ITZ J 466.0 ACUTE BRONCHITIS 12/25/2012 [employer], ITZ J 466.0 ACUTE BRONCHITIS 12/25/2012 ARGUETA [...] MARLENE CABRERA APRN 625.9 PELVIC PAIN 01/03/2013 [facility], ARASH R 625.9 PELVIC PAIN 01/03/2013 BRODY ARAYA MD 625 .9 PELVIC PAIN 01/03/2013 REYNALDO VIEIRA APRN T 62 5.9 PELVIC PAIN 01/03/2013 [facility] 625.9 PELVIC PAIN 01/03/2013 REYNALDO VIEIRA APRN T 62 5.9 PELVIC PAIN 01/03/2013 BRO ARGUETA DOA K 625.9 PELVIC PAIN 01/03/2013 [facility] 625.9 PELVIC PAIN 01/03/2013 MARLENE CABRERA APRN 625.9 PELVIC PAIN 01/03/2013 [facility] 625.9 PELVIC PAIN 01/03/2013 SAND[facility] LASSITER, ITZ J 625.9 PELVIC PAIN 01/03/2013 SANDI LASSITER, ITZ J 625.9 PELVIC PAIN 01/03/2013 BRODY ARAYA MD 625 .9 PELVIC PAIN 01/03/2013 MARSHAL SAUCEDO, BRODY Linda 625 .9 PELVIC PAIN 01/03/2013 [employer], ITZ J 625.9 PELVIC PAIN 01/03/2013 [facility], BENJI 62 5.9 PELVIC PAIN 01/03/2013 [facility], BENJI 62 5.9 PELVIC PAIN 01/03/2013 SABIHA MAST MD 625.9 PELVIC PAIN 01/03/2013 KIKA ARGUETA DO K 625.9 PELVIC PAIN 01/03/2013 [employer], ITZ J 625.9 PELVIC PAIN 01/03/2013 [employer], ITZ J 625.9 PELVIC PAIN 01/03/2013 [employer], ITZ J 625.9 PELVIC PAIN 01/03/2013 [employer], ITZ J 625.9 PELVIC PAIN 01/03/2013 KIKA [...] 726.71 ACHILLES BURSITIS OR TENDINITIS 02/23/2013 [facility] 726.71 ACHILLES BURSITIS OR TENDINITIS 02/23/2013 BRODY ARAYA MD 726 .71 ACHILLES BURSITIS OR TENDINITIS 02/23/2013 REYNALDO VIEIRA APRN 726.71 ACHILLES BURSITIS OR TENDINITIS 02/23/2013 [facility] 726.71 ACHILLES BURSITIS OR TENDINITIS 02/23/2013 REYNALDO VIEIRA APRN 726.71 ACHILLES BURSITIS OR TENDINITIS 02/23/2013 KIKA ARGUETA DO 726.71 ACHILLES BURSITIS OR TENDINITIS 02/23/2013 [facility] 726.71 ACHILLES BURSITIS OR TENDINITIS 02/23/2013 MARLENE CABRERA APRN 726.71 ACHILLES BURSITIS OR TENDINITIS 02/23/2013 [facility] 726.71 ACHILLES BURSITIS OR TENDINITIS 02/23/2013 ITZ JUNIOR APRN 726.71 ACHILLES BURSITIS OR TENDINITIS 02/23/2013 ITZ JUNIOR APRN 726.71 ACHILLES BURSITIS OR TENDINITIS 02/23/2013 BRODY ARAYA MD 726 .71 ACHILLES BURSITIS OR TENDINITIS 02/23/2013 BRODY ARAYA MD 726 .71 ACHILLES BURSITIS OR TENDINITIS 02/23/2013 ITZ JUNIOR APRN 726.71 ACHILLES BURSITIS OR TENDINITIS 02/23/2013 BNEJI [facility]COSTA DDS 726.71 ACHILLES BURSITIS OR TENDINITIS [...] DO 726.71 ACHILLES BURSITIS OR TENDINITIS 02/28/2013 ERYNALDO VIEIRA APRN V03.82 PPV23 (PNEUMOVAX) DX 02/28/2013 REYNALDO VIEIRA APRN V04.81 FLU SHOT 02/28/2013 REYNALDO VIEIRA APRN V03.82 PPV23 (PNEUMOVAX) DX 02/28/2013 REYNALDO VIEIRA APRN V04.81 FLU SHOT 02/28/2013 SABIHA MAST MD V03.8 2 PPV23 (PNEUMOVAX) DX 02/28/2013 SABIHA MAST MD V04.8 1 FLU SHOT 02/28/2013 ARGUETA , KIKA Hastings V03.82 PPV23 (PNEUMOVAX) DX 02/28/2013 ARGEUTA , KIKA Hastings V04.81 FLU SHOT 02/28/2013 MARLENE CABRERA APRN V03.82 PPV23 (PNEUMOVAX) DX 02/28/2013 [facility] MARLENE LASSITER V04.81 FLU SHOT 02/28/2013 [facility] MARLENE LASSITER V03.82 PPV23 (PNEUMOVAX) DX 02/28/2013 [facility] MARLENE LASSITER V04.81 FLU SHOT 02/28/2013 [facility], ARASH R V03.82 PPV23 (PNEUMOVAX) DX 02/28/2013 [facility], ARASH R V04.81 FLU SHOT 02/28/2013 BRODY ARAYA MD V03 .82 PPV23 (PNEUMOVAX) DX 02/28/2013 BRODY ARAYA MD V04 .81 FLU SHOT 02/28/2013 REYNALDO VIEIRA APRN V03.82 PPV23 (PNEUMOVAX) DX 02/28/2013 REYNALDO VIEIRA APRN V04.81 FLU SHOT 02/28/2013 [facility], ARASH R V03.82 PPV23 (PNEUMOVAX) DX 02/28/2013 [facility], ARASH R V04.81 FLU SHOT 02/28/2013 REYNALDO VIEIRA APRN V03.82 PPV23 (PNEUMOVAX) DX 02/28/2013 REYNALDO VIEIRA APRN V04.81 FLU SHOT 02/28/2013 KIKA ARGUETA DO V03.82 PPV23 (PNEUMOVAX) DX 02/28/2013 KIKA ARGUETA DO K V04.81 FLU SHOT 02/28/2013 [facility], ARASH R V03.82 PPV23 (PNEUMOVAX) DX 02/28/2013 [facility], ARASH R V04.81 FLU SHOT 02/28/2013 MARLENE CABRERA APRN V03.82 PPV23 (PNEUMOVAX) DX 02/28/2013 MARLENE CABRERA APRN V04.81 FLU SHOT 02/28/2013 [facility], ARASH R V03.82 PPV23 (PNEUMOVAX) DX 02/28/2013 [facility], ARASH R V04.81 FLU SHOT 02/28/2013 [...] APRN V04.81 FLU SHOT 02/28/2013 [facility], BENIJ V03.82 PPV23 (PNEUMOVAX) DX 02/28/2013 [facility] D[facility], [...] APRN V03.82 PPV23 (PNEUMOVAX) DX 02/28/2013 [employer], ITZ J V04.81 FLU SHOT 02/28/2013 [employer], ITZ J V03.82 PPV23 (PNEUMOVAX) DX 02/28/2013 S[employer] C[employer] TE[employer], ITZ J V04.81 FLU SHOT 02/28/2013 SANDI C[employer] TE[employer], ITZ J V03.82 PPV23 (PNEUMOVAX) DX 02/28/2013 SANDI C[employer] TE[employer]ER, ITZ J V04.81 FLU SHOT 02/28/2013 S[employer]I C[employer] TE[employer], ITZ J V03.82 PPV23 (PNEUMOVAX) DX 02/28/2013 S[employer]I C[employer] TE[employer], ITZ J V04.81 FLU SHOT 02/28/2013 KIKA ARGUETA DO K V03.82 PPV23 (PNEUMOVAX) DX 02/28/2013 KIKA ARGUETA DO K V04.81 FLU SHOT 03/23/2013 SABIHA MAST MD 599.0 URINARY TRACT INFECTION 03/23/2013 KIKA ARGUETA DO 599.0 URINARY TRACT INFECTION 03/23/2013 MARLENE CABRERA APRN 599.0 URINARY TRACT INFECTION 03/23/2013 MARLENE CABRERA APRN 599.0 URINARY TRACT INFECTION 03/23/2013 [facility], ARASH R 599.0 URINARY TRACT INFECTION 03/23/2013 BRODY ARAYA MD 599 .0 URINARY TRACT INFECTION 03/23/2013 REYNALDO VIEIRA APRN 59 9.0 URINARY TRACT INFECTION 03/23/2013 [facility], ARASH R 599.0 URINARY TRACT INFECTION 03/23/2013 REYNALDO VIEIRA APRN 59 9.0 URINARY TRACT INFECTION 03/23/2013 KIKA ARGUETA DO 599.0 URINARY TRACT INFECTION 03/23/2013 [facility], ARASH R 599.0 URINARY TRACT INFECTION 03/23/2013 MARLENE CABRERA APRN 599.0 URINARY TRACT INFECTION 03/23/2013 [facility], ARASH R 599.0 URINARY TRACT INFECTION 03/23/2013 ITZ JUNIOR [...] K 599.0 URINARY TRACT INFECTION 03/23/2013 [employer], ITZ J 599.0 URINARY TRACT INFECTION 03/23/2013 [employer] TE[employer], ITZ J 599.0 URINARY TRACT INFECTION 03/23/2013 SANDI LASSITER, ITZ J 599.0 URINARY TRACT INFECTION 03/23/2013 SANDI LASSITER, ITZ J 599.0 URINARY TRACT INFECTION 03/23/2013 ARGUETA DO, KIKA K 599.0 URINARY TRACT INFECTION 05/19/2013 MARLENE ACBRERA APRN 793.80 abnormal mammogram 05/19/2013 MARLENE CABRERA APRN 795.19 OTHER ABNORMAL [place]AP[place]OLA[place] SMEAR OF VAGINA AND VAGINA L HPV 05/19/2013 [facility], ARASH R 793.80 abnormal mammogram 05/19/2013 [facility], ARASH R 795.19 OTHER ABNORMAL P[place]OLAOU SMEAR OF VAGINA AND VAGINA L HPV 05/19/2013 BRODY ARAYA MD N 793 .80 abnormal mammogram 05/19/2013 BRODY ARAYA MD 795 .19 OTHER ABNORMAL [place] SMEAR OF VAGINA AND VAGINAL HPV 05/19/2013 REYNALDO VIEIRA APRN 793.80 abnormal mammogram 05/19/2013 REYNALDO VIEIRA APRN 795.19 OTHER ABNORMAL [place] SMEAR OF VAGINA AND VAGINA L HPV 05/19/2013 [facility], ARASH R 793.80 abnormal mammogram 05/19/2013 [facility], ARASH R 795.19 OTHER ABNORMAL [place] SMEAR OF VAGINA AND VAGINA L HPV 05/19/2013 REYNALDO VIEIRA APRN 793.80 abnormal mammogram 05/19/2013 REYNALDO VIEIRA APRN 795.19 OTHER ABNORMAL [place] SMEAR OF VAGINA AND VAGINA L HPV 05/19/2013 KIKA ARGUETA DO K 793.80 abnormal mammogram 05/19/2013 KIKA ARGUETA DO K 795.19 OTHER ABNORMAL [place] SMEAR OF VAGINA AND VAGINAL HPV 05/19/2013 [facility], ARASH R 793.80 abnormal mammogram 05/19/2013 [facility], ARASH R 795.19 OTHER ABNORMAL [place] SMEAR OF VAGINA AND VAGINA L HPV 05/19/2013 MARLENE CABRERA APRN 793.80 abnormal mammogram 05/19/2013 MARLENE CABRERA APRN 795.19 OTHER ABNORMAL [place] SMEAR OF VAGINA AND VAGINA L HPV 05/19/2013 [facility], ARASH R 793.80 abnormal mammogram 05/19/2013 [facility], ARASH R 795.19 OTHER ABNORMAL PAPANICOLAOU [...] 78 2.0 DISTURBANCE OF SKIN SENSATION 07/01/2013 [facility] 625.8 OTHER SPECIFIED SYMPTOMS ASSOCIATED WITH FEMALE GENITA L ORGANS 07/01/2013 [facility], ARASH R 626.9 UNSPECIFIED DISORDERS OF MENSTRUATION AN D OTHER ABNORMAL BLEEDING FROM FEMALE GENITAL TRACT 07/01/2013 [facility] 782.0 DISTURBANCE OF SKIN SENSATION [...] K 782.0 DISTURBANCE OF SKIN SENSATION 07/01/2013 [facility] 625.8 OTHER SPECIFIED SYMPTOMS ASSOCIATED WITH FEMALE GENITA L ORGANS 07/01/2013 [facility] 626.9 UNSPECIFIED DISORDERS OF MENSTRUATION AN D OTHER ABNORMAL BLEEDING FROM FEMALE GENITAL TRACT 07/01/2013 [facility], ARASH R 782.0 DISTURBANCE OF SKIN SENSATION 07/01/2013 MARLENE CABRERA APRN 625.8 OTHER SPECIFIED SYMPTOMS ASSOCIATED WITH FEMALE GENITA L ORGANS 07/01/2013 MARLENE CABRERA APRN 626.9 UNSPECIFIED DISORDERS OF MENSTRUATION AN D OTHER ABNORMAL BLEEDING FROM FEMALE GENITAL TRACT 07/01/2013 MARLENE CABRERA APRN 782.0 DISTURBANCE OF SKIN SENSATION 07/01/2013 [facility] 625.8 OTHER SPECIFIED SYMPTOMS ASSOCIATED WITH FEMALE GENITA L ORGANS [facility] UNSPECIFIED DISORDERS OF MENSTRUATION AN D OTHER ABNORMAL BLEEDING FROM FEMALE GENITAL TRACT 07/01/2013 [facility] 782.0 DISTURBANCE OF SKIN SENSATION 07/01/2013 [...] APRN 35 4.0 CARPAL TUNNEL SYNDROME 07/15/2013 [facility], ARASH R 354.0 CARPAL TUNNEL SYNDROME 07/15/2013 REYNALDO VIEIRA APRN 35 4.0 CARPAL TUNNEL SYNDROME 07/15/2013 KIKA ARGUETA DO K 354.0 CARPAL TUNNEL SYNDROME 07/15/2013 [facility], ARASH R 354.0 CARPAL TUNNEL SYNDROME 07/15/2013 MARLENE CABRERA APRN 354.0 CARPAL TUNNEL SYNDROME 07/15/2013 [facility], ARASH R 354.0 CARPAL TUNNEL SYNDROME [...] ARGUETA DOA K 307.81 TENSION HEADACHE 09/08/2013 [facility], ARASH R 307.81 TENSION HEADACHE 09/08/2013 MARLENE CABRERA APRN 307.81 TENSION HEADACHE 09/08/2013 [facility], ARASH R 307.81 TENSION HEADACHE 09/08/2013 [...] APRN J 577.0 ACUTE PANCREATITIS 12/22/2013 SANDI CAREER PORTALS TEACHERITZ Linda J 577.0 ACUTE PANCREATITIS 12/22/2013 ITZ JUNIOR APRN J 577.0 ACUTE PANCREATITIS 12/22/2013 ITZ JUNIOR APRN J 577.0 ACUTE PANCREATITIS 12/22/2013 KIKA ARGUETA DO K 577.0 ACUTE PANCREATITIS 01/02/2014 LAURA FINCH CAREER PORTALS TEACHER Ot 311 DEPRESSIVE DISORDER NEC 01/02/2014 LAURA FINCH CAREER PORTALS TEACHER Ot 345.90 EPILEPSY UNSPEC W/O MENTION INTRACTABLE 01/02/2014 LAURA FINCH CAREER PORTALS TEACHER Ot 346.90 MIGRAINE UNSPECIFIED W/O INTRACT MGRN W/ 01/02/2014 LAURA FINCH CAREER PORTALS TEACHER Ot 493.90 ASTHMA, UNSPECIFIED 01/02/2014 LAURA FINCH APRN Ot 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 01/02/2014 LAURA FINCH CAREER PORTALS TEACHER Ot 592 .0 CALCULUS OF KIDNEY 01/02/2014 LAURA FINCH CAREER PORTALS TEACHER Ot 599 .0 URIN TRACT INFECTION NOS 01/02/2014 LAURA FINCH CAREER PORTALS TEACHER Ot 729 .1 MYALGIA AND MYOSITIS NOS 01/02/2014 LAURA FINCH CAREER PORTALS TEACHER Ot 789.09 ABDOMINAL PAIN, OTHER SPECIFIED SITE 01/02/2014 LAURA FINCH CAREER PORTALS TEACHER Ot 793 .4 NOSP (ABN) FINDINGS ON [...] HEMOR COMPLIC A PROCEDURE 03/02/2014 LAURA FINCH CAREER PORTALS TEACHER Ot 311 DEPRESSIVE DISORDER NEC 03/02/2014 LAURA FINCH APRN Ot 599 .0 URIN TRACT INFECTION NOS 03/02/2014 LAURA FINCH APRN Ot 729 .1 MYALGIA AND MYOSITIS NOS 03/02/2014 LAURA FINCH CAREER PORTALS TEACHER Ot 787.01 NAUSEA WITH VOMITING 03/14/2014 KEZIA SAUCEDO, SABIHA V58.6 9 HIGH RISK MEDICATION 03/14/2014 ARGUETA DO KIKA K V58.69 HIGH RISK MEDICATION 03/14/2014 SANDI CAREER PORTALS TEACHER, ITZ J V58.69 HIGH RISK MEDICATION 03/14/2014 SANDI CAREER PORTALS TEACHER, ITZ J V58.69 HIGH RISK MEDICATION 03/14/2014 SANDI CAREER PORTALS TEACHER, ITZ J V58.69 HIGH RISK MEDICATION 03/14/2014 SANDI CAREER PORTALS TEACHER, ITZ J V58.69 HIGH RISK MEDICATION 03/14/2014 [...] QUINONES Ot 787.91 DIARRHEA 05/12/2014 YASSINE KNOX GUITAR TEACHER Ot 611.72 05/12/2014 ROMMEL MCMILLAN APRN Ot 611.71 05/12/2014 MARISA HOOK MD Ot 592.0 05/12/2014 MARISA HOOK MD Ot 789.0 0 05/12/2014 MARISA HOOK MD Ot 592.9 05/12/2014 MARISA HOOK MD Ot 592.0 05/12/2014 MARISA HOOK MD A Ot V72.8 4 05/12/2014 MARSHAL SAUCEDO, BRODY Linda Ot 577 .0 05/12/2014 NETTIE [...] Ot 785.0 TACHYCARDIA NOS 06/23/2014 YASSINE KNOX GUITAR TEACHER Ot 611.72 06/23/2014 ROMMEL MCMILLAN APRN Ot 611.71 06/23/2014 MILADYS SAUCEDO, MARISA Gant Ot 592.0 06/23/2014 MILADYS SAUCEDO, MARISA Gant Ot 789.0 0 06/23/2014 MILADYS SAUCEDO, MARISA A Ot 592.9 06/23/2014 MILADYS SAUCEDO, MARISA A Ot 592.0 06/23/2014 MILADYS SAUCEDO, MARISA A Ot V72.8 4 06/23/2014 MARSHAL SAUCEDO, BRODY Linda Ot 577 .0 06/23/2014 [place] Ot 782. 2 06/23/2014 [place] Ot V72. 84 [...] SAUCEDO, BRODY Linda Ot 577 .0 06/30/2014 [place] Ot 782. 2 [...] SAUCEDO, BRODY Linda Ot 577 .0 06/30/2014 [place] Ot 782. 2 06/30/2014 [place] Ot V72. 84 [...] SAUCEDO, BRODY Linda Ot 577 .0 07/01/2014 [place] ENTTIE [place]RE Ot 782. 2 07/01/2014 NETTIE HAHN DO Ot V72. 84 07/01/2014 MILADYS SAUCEDO, MARISA A Ot 592.0 07/01/2014 MILADYS SAUCEDO, MARISA A Ot V72.8 4 07/01/2014 MILADYS SAUCEDO, MARISA A Ot 592.0 07/01/2014 REYNALDO LONDONO DO Ot 788.1 DYSURIA 07/01/2014 REYNALDO LONDONO DO Ot 789.09 ABDOMINAL PAIN, OTHER SPECIFIED SITE 07/03/2014 YASSINE KNOX GUITAR TEACHER Ot 611.72 07/03/2014 ROMMEL MCMILLAN APRN Ot [...] V58.69 OTH MED,LT,CURRENT USE 09/03/2014 YASSINE KNOX GUITAR TEACHER Ot 611.72 09/03/2014 ROMMEL MCMILLAN CAREER PORTALS TEACHER Ot 611.71 09/03/2014 MILADYS SAUCEDO, MARISA Gant Ot 592.0 09/03/2014 MILADYS SAUCEDO, MARISA A Ot 789.0 0 09/03/2014 MILADYS SAUCEDO, MARISA A Ot 592.9 09/03/2014 MILADYS SAUCEDO, MRAISA A Ot 592.0 09/03/2014 MILADYS SAUCEDO, MARISA A Ot V72.8 4 09/03/2014 MARSHAL SAUCEDO, BRODY Linda Ot 577 .0 09/03/2014 [place] NETT[place] Ot 782. 2 09/03/2014 [place] [place] Ot V72. 84 [...] V72.84 09/20/2014 Ot V74.8 10/13/2014 LAURA FINCH CAREER PORTALS TEACHER Ot 592 .0 CALCULUS OF KIDNEY 10/13/2014 LAURA FINCH CAREER PORTALS TEACHER Ot 599 .0 URIN TRACT INFECTION NOS 10/13/2014 LAURA FINCH CAREER PORTALS TEACHER Ot 724 .1 PAIN IN THORACIC SPINE [...] HOOK MD Ot 592.0 11/27/2014 LAURA FINCH CAREER PORTALS TEACHER Ot 592 .1 CALCULUS OF URETER 11/27/2014 LAURA FINCH CAREER PORTALS TEACHER Ot 789.00 ABDOMINAL PAIN, UNSPECIFIED SITE 12/27/2014 MIALDYS SAUCEDO, MARISA Gant Ot 592.0 12/27/2014 MILADYS [...] SABIHA Glaser Ot 722.51 04/09/2015 LAURA FINCH CAREER PORTALS TEACHER Ot G89.29 OTHER CHRONIC PAIN 04/09/2015 LAURA FINCH CAREER PORTALS TEACHER Ot K76 .0 FATTY (CHANGE OF) LIVER, NOT ELSEWHERE C 04/09/2015 LAURA FINCH CAREER PORTALS TEACHER Ot M54.12 RADICULOPATHY, CERVICAL REGION 04/09/2015 YASSINE KNOX GUITAR TEACHER Ot 611.72 04/09/2015 ROMMEL MCMILLAN CAREER PORTALS TEACHER Ot 611.71 04/09/2015 MILADYS SAUCEDO, MARISA Gant [...] AND MYOSITIS NOS 10/13/2015 KARYN KNOXRADHA Sin GUITAR TEACHER Ot 611.72 LUMP OR MASS IN BREAST 10/13/2015 ROMMEL MCMILLAN CAREER PORTALS TEACHER Ot 611.71 MASTODYNIA 10/13/2015 MARISA HOOK MD Ot 592.0 CALCULUS OF KIDNEY 10/13/2015 MARISA HOOK MD Ot 789.0 0 ABDOMINAL PAIN, UNSPECIFIED SITE 10/13/2015 MARISA HOOK MD Ot 592.9 URINARY CALCULUS NOS 10/13/2015 MARISA HOOK MD Ot 592.0 CALCULUS OF KIDNEY 10/13/2015 MARISA HOOK MD Ot V72.8 4 EXAM PRE-OPERATIVE NOS 10/13/2015 MARSHAL SAUCEDO, BRODY Linda Ot 577 .0 ACUTE PANCREATITIS 10/13/2015 [place] NETTIE [place] Ot 782. 2 [...] INFECTION, SITE NOT SPECIF 10/22/2015 LAURA FINCH CAREER PORTALS TEACHER Ot G89.29 OTHER CHRONIC PAIN 10/22/2015 LAURA FINCH CAREER PORTALS TEACHER Ot K42 .9 UMBILICAL HERNIA WITHOUT OBSTRUCTION OR 10/22/2015 LAURA FINCH CAREER PORTALS TEACHER Ot M54 .5 LOW BACK PAIN 10/22/2015 LAURA FINCH CAREER PORTALS TEACHER Ot N20 .0 CALCULUS OF KIDNEY 10/24/2015 LAURA FINCH CAREER PORTALS TEACHER Ot G89.29 OTHER CHRONIC PAIN 10/24/2015 LAURA FINCH CAREER PORTALS TEACHER Ot K42 .9 UMBILICAL HERNIA WITHOUT OBSTRUCTION OR 10/24/2015 LAURA FINCH CAREER PORTALS TEACHER Ot M54 .5 LOW BACK PAIN 10/24/2015 LAURA FINCH CAREER PORTALS TEACHER Ot N20 .0 CALCULUS OF KIDNEY 10/24/2015 YASSINE KNOX GUITAR TEACHER Ot 611.72 LUMP OR MASS IN BREAST 10/24/2015 ROMMEL MCMILLAN CAREER PORTALS TEACHER Ot 611.71 MASTODYNIA 10/24/2015 MARISA HOOK MD [...] WITH CALCULUS OF URET 12/07/2015 YASSINE KNOX GUITAR TEACHER Ot 611.72 LUMP OR MASS IN BREAST 12/07/2015 HIPOLITO, ROMMEL A CAREER PORTALS TEACHER Ot 611.71 MASTODYNIA 12/07/2015 MARISA HOOK MD [...] MYALGIA AND MYOSITIS NOS 02/01/2016 YASSINE KNOX GUITAR TEACHER Ot 611.72 LUMP OR MASS IN BREAST [...] Ot 592.0 CALCULUS OF KIDNEY 02/01/2016 MARISA HOKO MD Ot V72.8 4 EXAM PRE-OPERATIVE NOS [...] 02/01/2016 BENJI LOMBARDO MD Ot Z79.899 OTHER FUEL SYSTEM MAINTENANCE SUPERVISOR (CURRENT) DRUG THERAPY 02/14/2016 BENJI LOMBARDO MD Ot 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, T 02/15/2016 BENJI LOMBARDO MD Ot Z79.899 OTHER FUEL SYSTEM MAINTENANCE SUPERVISOR (CURRENT) DRUG THERAPY 03/03/2016 YASSINE KNOX GUITAR TEACHER Ot 611.72 LUMP OR MASS IN BREAST 03/03/2016 ROMMEL MCMILLAN CAREER PORTALS TEACHER Ot 611.71 MASTODYNIA 03/03/2016 MARISA HOOK MD Ot 592.0 CALCULUS OF KIDNEY 03/03/2016 MARISA HOOK MD Ot 789.0 0 ABDOMINAL PAIN, UNSPECIFIED SITE 03/03/2016 MARISA HOOK [...] Ot V45.8 9 POSTSURGICAL STATES NEC 03/03/2016 KZEIA SAUCEDO, SABIHA Glaser Ot 722.51 THORACIC DISC [...] 03/03/2016 BENJI LOMBARDO MD Ot Z79.899 OTHER FUEL SYSTEM MAINTENANCE SUPERVISOR (CURRENT) DRUG THERAPY 03/11/2016 BENJI LOMBARDO MD, Ot 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, T 03/11/2016 BENJI LOMBARDO MD Ot Z79.899 OTHER FUEL SYSTEM MAINTENANCE SUPERVISOR (CURRENT) DRUG THERAPY 03/24/2016 ZABRINA WOLF MD Ot G40.909 EPILEPSY, UNSP, NOT INTRACTABLE, WITHOUT 03/24/2016 ZABRINA WOLF MD Ot I10 ESSENTIAL (PRIMARY) HYPERTENSION 03/24/2016 ZABRINA WOLF MD Ot Z79.899 OTHER FUEL SYSTEM MAINTENANCE SUPERVISOR (CURRENT) DRUG THERAPY 03/26/2016 ZABRINA WOLF MD Ot G40.909 EPILEPSY, UNSP, NOT INTRACTABLE, WITHOUT 03/26/2016 ZABRINA WOLF MD Ot I10 ESSENTIAL (PRIMARY) HYPERTENSION 03/26/2016 ZABRINA WOLF MD Ot Z79.899 OTHER GROUP HOME (CURRENT) DRUG THERAPY 03/27/2016 BENJI LOMBARDO MD Ot 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, T 03/27/2016 BENJI LOMBARDO MD, Ot Z79.899 OTHER FUEL SYSTEM MAINTENANCE SUPERVISOR (CURRENT) DRUG THERAPY 04/16/2016 KEZIA SAUCEDO, SABIHA Glaser Ot R92 .8 OTH ABN AND INCONCLUSIVE FINDINGS ON DX 04/28/2016 KEZIA SUACEDO, SABIHA Glaser Ot R92 .8 OTH ABN [...] DYSURIA 06/07/2016 MAYRA QUINONES Ot Z79.899 OTHER FUEL SYSTEM MAINTENANCE SUPERVISOR (CURRENT) DRUG THERAPY 06/09/2016 MAYRA QUINONES L Ot I 10 ESSENTIAL (PRIMARY) HYPERTENSION 06/09/2016 MAYRA QUINONES Ot N20.0 CALCULUS OF KIDNEY 06/09/2016 MAYRA QUINONES Ot R30.0 DYSURIA 06/09/2016 MAYRA QUINONES Ot Z79.899 OTHER GROUP HOME (CURRENT) DRUG THERAPY 06/10/2016 MARISA HOOK [...] DYSURIA 06/13/2016 MAYRA QUINONES Ot Z79.899 OTHER GROUP HOME (CURRENT) DRUG THERAPY 06/17/2016 MARISA HOOK MD, [...] AND MYOSITIS NOS 02/23/2017 YASSINE KNOX Merrick GUITAR TEACHER Ot 611.72 LUMP OR MASS IN BREAST 02/23/2017 ROMMEL MCMILLAN CAREER PORTALS TEACHER Ot 611.71 MASTODYNIA 02/23/2017 MARISA HOOK MD [...] EXA M PRE- OPERATIVE NOS 02/23/2017 MARISA HOOK MD [...] Z98.51 TUBAL LIGATION STATUS 03/30/2017 YASSINE KNOX GUITAR TEACHER Ot 611.72 LUMP OR MASS IN BREAST [...] CASE Ot R06.02 SHORTNESS OF BREATH 10/20/2017 HAHN DO, NETTIE D Ot R19. 7 [...] FOR OTHER PREPROCEDURAL EXAMIN 10/27/2017 YASSINE KNOX GUITAR TEACHER Ot 611.72 LUMP OR MASS IN BREAST 10/27/2017 ROMMEL MCMILLAN CAREER PORTALS TEACHER Ot 611.71 MASTODYNIA 10/27/2017 MILADYSMARISA MADISON MD Ot 592.0 CALCULUS OF KIDNEY 10/27/2017 MARISA HOOK MD Ot 789.0 0 ABDOMINAL PAIN, UNSPECIFIED SITE 10/27/2017 MARISA HOOK MD Ot 592.9 URINARY CALCULUS NOS 10/27/2017 MARISA HOOK MD Ot 592.0 CALCULUS OF KIDNEY 10/27/2017 MARISA HOOK MD Ot V72.8 4 EXAM PRE-OPERATIVE NOS 10/27/2017 MARSHAL SAUCEDO, BRODY Linda Ot 577 .0 ACUTE PANCREATITIS 10/27/2017 [place] NETTIE [place] Ot 782. 2 [...] 10/27/2017 NETTIE HAHN DO Ot Z79.899 OTHER FUEL SYSTEM MAINTENANCE SUPERVISOR (CURRENT) DRUG THERAPY 10/27/2017 NETTIE HAHN [...] 10/29/2017 NETTIE HAHN DO Ot Z79.899 OTHER FUEL SYSTEM MAINTENANCE SUPERVISOR (CURRENT) DRUG THERAPY 10/29/2017 NETTIE HAHN [...] I10 ESSENTIAL (PRIMARY) HYPERTENSION 12/25/2017 ANGEL MATA MD Ot J45.909 UNSPECIFIED ASTHMA, UNCOMPLICATED 12/25/2017 [...] DISEASES OF TH 12/25/2017 FINCH, PETER J CAREER PORTALS TEACHER Ot Z88 .1 ALLERGY STATUS TO OTHER ANTIBIOTIC AGENT 12/25/2017 LAURA FINCH CAREER PORTALS TEACHER Ot Z88 .2 ALLERGY STATUS TO SULFONAMIDES STATUS 12/25/2017 LAURA FINCH CAREER PORTALS TEACHER Ot Z88 .4 ALLERGY STATUS TO ANESTHETIC AGENT STATU 12/25/2017 LAURA FINCH CAREER PORTALS TEACHER Ot Z88 .5 ALLERGY STATUS TO NARCOTIC [...] 09 UNSPECIFIED ASTHMA, UNCOMPLICATED 12/29/2017 MILADYS SAUCEDO, AMRISA Gant Ot N20.0 CALCULUS OF KIDNEY 12/29/2017 MILADYS SAUCEDO, MARISA Gant Ot R56.9 UNSPECIFIED CONVULSIONS 12/29/2017 MILADYS SAUCEDO, MARISA Gant Ot Z79.8 99 OTHER FUEL SYSTEM MAINTENANCE SUPERVISOR (CURRENT) DRUG THERAPY 12/29/2017 MILADYS SAUCEDO, [...] OF OTHER DISEASES OF UR 12/29/2017 ZOFIA MORA DO Ot Z88.1 ALLERGY STATUS TO OTHER [...] MARISA HOOK MD Ot Z79.8 99 OTHER FUEL SYSTEM MAINTENANCE SUPERVISOR (CURRENT) DRUG THERAPY 01/15/2018 BRODY ARAYA [...] Ot M54 .9 DORSALGIA, UNSPECIFIED 01/15/2018 BRODY RAAYA MD Ot N20 .0 CALCULUS OF KIDNEY 01/15/2018 BRODY ARAYA MD Ot R11 .2 NAUSEA WITH VOMITING, UNSPECIFIED 01/15/2018 BRODY ARAYA MD Ot Z98.890 OTHER SPECIFIED POSTPROCEDURAL STATES 01/15/2018 MARISA HOOK MD Ot E78.5 HYPERLIPIDEMIA, UNSPECIFIED 01/15/2018 MARISA HOOK MD Ot F32.9 MAJOR DEPRESSIVE DISORDER, SINGLE EPISOD 01/15/2018 MARISA HOOK MD Ot F41.9 ANXIETY DISORDER, UNSPECIFIED 01/15/2018 MARSIA HOOK MD Ot G40.9 09 EPILEPSY, UNSP, [...] MARISA HOOK MD Ot Z79.8 99 OTHER FUEL SYSTEM MAINTENANCE SUPERVISOR (CURRENT) DRUG THERAPY 01/17/2018 Ot Z01.818 [...] MD Ot I10 ESSENTIAL (PRIMARY) HYPERTENSION 07/15/2019 ANGEL MATA MD, Ot K21.9 GASTRO-ESOPHAGEAL REFLUX [...] ALLERGY STATUS TO NARCOTIC AGENT STATUS 07/15/2019 NAGEL MATA MD Ot Z88.6 ALLERGY STATUS TO [...] TO OT DRUG/MEDS/BIOL SUB 09/10/2019 FIDEL, TARSHA GUITAR TEACHER Ot E78.00 PURE HYPERCHOLESTEROLEMIA, UNSPECIFIED 09/10/2019 FIDEL, TARSHA GUITAR TEACHER Ot F32.9 MAJOR DEPRESSIVE DISORDER, SINGLE EPISOD 09/10/2019 FIDEL, TARSHA GUITAR TEACHER Ot F41.9 ANXIETY DISORDER, UNSPECIFIED 09/10/2019 FIDEL, TARSHA GUITAR TEACHER Ot G40.909 EPILEPSY, UNSP, NOT INTRACTABLE, WITHOUT 09/10/2019 FIDEL, TARSHA GUITAR TEACHER Ot G47.30 SLEEP APNEA, UNSPECIFIED 09/10/2019 FIDEL, TARSHA GUITAR TEACHER Ot I10 ESSENTIAL (PRIMARY) HYPERTENSION 09/10/2019 FIDEL, TARSHA SHERP Ot J45.909 UNSPECIFIED ASTHMA, UNCOMPLICATED 09/10/2019 FIDEL, TARSHA SHERP Ot K21.9 GASTRO-ESOPHAGEAL REFLUX DISEASE WITHOUT 09/10/2019 FIDEL, TARSHA GUITAR TEACHER Ot K52.9 NONINFECTIVE GASTROENTERITIS AND COLITIS 09/10/2019 FIDEL, TARSHA SHERP Ot M54.5 LOW BACK PAIN 09/10/2019 FIDEL, TARSHA SHERP Ot M62.830 MUSCLE SPASM OF BACK 09/10/2019 FIDEL, TARSHA GUITAR TEACHER Ot M79.7 FIBROMYALGIA 09/10/2019 FIDEL, TARSHA SHERP Ot S39.012A STRAIN OF MUSCLE, FASCIA AND TENDON OF L 09/10/2019 FIDEL, TARSHA SHERP Ot X50.9XXA OTHER AND UNSPECIFIED OVREXRTN OR STRNOU 09/10/2019 FIDEL, TARSHA GUITAR TEACHER Ot Z79.899 OTHER FUEL SYSTEM MAINTENANCE SUPERVISOR (CURRENT) DRUG THERAPY 09/10/2019 FIDEL, TARSHA SHERP Ot Z87.19 PERSONAL HISTORY OF OTHER DISEASES OF TH 09/10/2019 FIDEL, TARSHA SHERP Ot Z88.2 ALLERGY STATUS TO SULFONAMIDES STATUS 09/10/2019 FIDEL, TARSHA GUITAR TEACHER Ot Z88.5 ALLERGY STATUS TO NARCOTIC AGENT STATUS 09/10/2019 FIDEL, TARSHA GUITAR TEACHER Ot Z88.8 ALLERGY STATUS TO OTH DRUG/MEDS/BIOL [...] K58.0 IRRITABLE BOWEL SYNDROME WITH DIARRHEA 01/03/2020 [place] DO, ZOFIA Hastings Ot M54.9 DORSALGIA, UNSPECIFIED 01/03/2020 [place] DO, ZOFIA Venkata Ot M79.10 MYALGIA, UNSPECIFIED SITE 01/03/2020 [place] DO, ZOFIA K Ot N20.0 CALCULUS OF KIDNEY 01/03/2020 MORGAN DO, ZOFIA Venkata Ot N39.0 URINARY TRACT INFECTION, SITE NOT SPECIF 01/03/2020 [place] DO, ZOFIA Venkata Ot R07.81 PLEURODYNIA 01/03/2020 [place] DO, ZOFIA Venkata Ot Z79.899 OTHER FUEL SYSTEM MAINTENANCE SUPERVISOR (CURRENT) DRUG THERAPY 01/03/2020 [facility], ZOFIA Venkata Ot Z87.01 PERSONAL HISTORY OF PNEUMONIA (RECURRENT 01/03/2020 [facility], ZOFIA K Ot Z87.19 PERSONAL HISTORY OF OTHER DISEASES OF TH 01/03/2020 [place] DO, ZOFIA Venkata Ot Z88.2 ALLERGY STATUS TO SULFONAMIDES STATUS 01/03/2020 [place] DO ZOFIA K Ot Z88.5 ALLERGY STATUS TO NARCOTIC AGENT STATUS 01/03/2020 [facility], ZOFIA K Ot Z88.8 ALLERGY STATUS TO OTH DRUG/MEDS/BIOL SUB Procedures Code Description Performed By Per formed On 56.0 TU RE MOV URETER OBSTRUCT 05/01/2009 59.5 RETRO PUBIC URETH SUSPENS 07/18/2009 63093 ROUT INE VENIPUNCTURE 03/31/2012 30553 A1C (IN-HOUSE) 03/31/2012 25081 CBC 03/31/2012 11257 LIPI D PANEL 03/31/2012 11615 CMP 03/31/2012 4866078 GF R CALC (RESULT ONLY) 03/31/2012 19913 TSH 03/31/2012 89967 MICR O ALBUMIN-IN HOUSE 04/01/2012 93724 PSYC H IND W/MED CK 20 04/13/2012 38765 EEG 04/13/2012 Neurology Mino Garcia 04/13/2012 92436 PSYC H DIAG INTER EXAM 04/15/2012 15794 MARVA V PSYTX 45/50 MIN 04/27/2012 72776 PSYC H PHARM MGMT 05/01/2012 84778 PSYC H PHARM MGMT 05/05/2012 84047 MARVA V PSYTX 20/30 MIN 05/21/2012 65072 PSYT X PT&/FAMILY 60 MINUTES 07/07/2012 17535 MAMM OGRAM DX, YOLI 07/08/2012 36784 PAP SMEAR 07/08/2012 Q0091 PAP SMEAR OBTAIN SMEAR 07/08/2012 88792 PSYT X PT&/FAMILY 45 MINUTES 07/21/2012 21144 PSYC H IND W/MED CK 20 08/06/2012 29872 PSYT X PT&/FAMILY 30 MINUTES 08/06/2012 61560 UA L ALFREDO DIP 09/22/2012 96577 PSYT X PT&/FAMILY 45 MINUTES 09/28/2012 99585 PSYT X PT&/FAMILY 45 MINUTES 10/28/2012 07593 PSYC H DIAGNOSTIC EVALUATION 11/15/2012 48812 PSYT X PT&/FAMILY 45 MINUTES 11/23/2012 41007 ROUT INE VENIPUNCTURE 02/28/2013 39638 TSH 02/28/2013 24344 A1C (IN-HOUSE) 02/28/2013 37488 CBC 02/28/2013 28120 LIPI D PANEL 02/28/2013 73162 CMP 02/28/2013 8830109 GF R CALC (RESULT ONLY) 02/28/2013 41588 UA W / CULTURE IF INDICATED 04/07/2013 16316 URIN E DRUG SCREEN (IN-HOUSE) 04/07/2013 41793 TRIG LASHANDA POINT INJ/1-2 MUS 04/08/2013 60034 URIN E OXYCODONE GC/MS 04/08/2013 25166 URIN E TCA CON'F 04/08/2013 82672 URIN E DRUG SCREEN (IN-HOUSE) 05/16/2013 16063 MAMM OGRAM DX, YOLI 05/17/2013 Q0091 PAP SMEAR OBTAIN SMEAR 05/17/2013 03246 PAP SMEAR 05/26/2013 99283 PSYT X PT&/FAMILY 30 MINUTES 06/16/2013 07972 US P ELVIC COMPL (REFLEX CPT- 30312) 07/01/2013 16975 CMP 07/15/2013 64297 LIPI D PANEL 07/15/2013 19161 TSH 07/15/2013 12677 CBC 07/15/2013 55935 CRP HS (CARDIO) 07/15/2013 25111 PSYT X PT&/FAMILY 45 MINUTES 07/20/2013 2000F BLOO D PRESSURE CHECK 09/08/2013 42822 PSYT X PT&/FAMILY 45 MINUTES 09/20/2013 15199 PSYT X PT&/FAMILY 45 MINUTES 11/09/[address] A BDOMEN W/ AND W/O CONTRAST 12/22/2013 16340 LIPASE 12/22/2013 66034 CBC 12/22/2013 0153185 GF R CALC (RESULT ONLY) 12/22/2013 02810 CMP 12/22/2013 55005 A1C (IN-HOUSE) 03/07/2014 11714 URIN E DRUG SCREEN (IN-HOUSE) 03/14/2014 68235 UA L ALFREDO DIP 04/07/2014 Results Test [...] plasma alkaline phosphatase linda surement (enzymatic activity/volume) 73 U/L 40-136 Serum [...] NRG STATEMENT OF ADEQUACY: NRG INTERPRETATION/RESULT: NRG SENIOR HR BUSINESS PARTNER: NRG COMMENT NRG Serum or plasma C [...] NRG STATEMENT OF ADEQUACY: NRG INTERPRETATION/RESULT: NRG SENIOR HR BUSINESS PARTNER: NRG COMMENT NRG Complete urinalysis with reflex [...] Status Pt. Type Provider Facility Loc./Unit Complaint [id number] 08/14/2016 10:09:00 Document Registration [id number] 04/21/2016 05:05:00 Document Registration [id number] 03/25/2017 11:09:00 Document Registration [id number] 09/21/2019 16:00:00 09/21/2019 23:59: 59 CLS Out[id number] 10/28/2019 10:15:00 Document Registration [id number] 08/16/2018 10:30:00 Document Registration [id number] 10/06/2017 09:40:00 Document Registration [id number] 05/01/2017 13:30:00 Document Registration [id number] 03/24/2017 14:20:00 Document Registration [id number] 05/29/2016 05:05:00 Document Registration [id number] 01/03/2020 13:44:00 15:05:00 DIS Outpatient MARISA HOOK MD Via [facility] PREOP RIGHT PROXIMAL URETERAL STONE [id number] 01/01/2020 19:00:00 21:48:00 DIS Outpatient ZOFIA MORA DO, V [facility] ER DIFICULTY EXHALING,RIB PAIN [id number] 11/14/2019 15:00:00 23:59:59 CLS Preadmit SEALADAM Curry DO, V [facility] RAD SCREENING [id number] 09/10/2019 15:08:00 15:42:00 DIS Emergency TARSHA PARRA GUITAR TEACHER Via [facility] ER MUSCLE SPASM IN BACK, [id number] 07/15/2019 06:13:00 10:38:00 DIS Emergency ANGEL MATA MD [facility] ER BACK LEG PAIN [id number] 02/04/2018 07:58:00 23:59:59 CLS Outpatient Anshu NEWBERRY MD Via [facility] LAB HYPERLIPIDEMIA [id number] 01/26/2018 08:54:00 13:35:00 DIS Outpatient MARISA HOOK MD Via [facility] SDC LEFT STONE [id number] 01/25/2018 14:46:00 23:59:59 CLS Outpatient MARISA HOOK MD Via [facility] PREOP LEFT STONE [id number] 01/25/2018 13:25:00 23:59:59 CLS Outpatient MARISA HOOK MD Via [facility] RAD LT URETERAL STONE [id number] 01/13/2018 23:35:00 08/17/2 018 15:50:00 DIS Inpatient BRODY ARAYA MD Via [facility] 4TH INTRACTABLE NAUSEA VO MITING [id number] 01/13/2018 10:00:00 018 23:59:59 [facility] [id number] 12/29/2017 16:45:00 018 20:00:00 DIS Emergency PRECIOUS MORA DOA Venkata Vi a [facility] ER VOMITING;BP ISSUES [id number] 12/29/2017 05:57:00 018 11:30:00 DIS Outpatient MARISA HOOK MD Via [facility] BILATERAL RENAL STONES [id number] 12/28/2017 05:33:00 018 10:35:00 DIS Outpatient MARISA HOOK MD Via [facility] PREOP BILAT RENAL STONE [id number] 12/25/2017 08:51:00 018 23:59:59 CLS Outpatient MARISA HOOK MD Via [facility] RAD RT RENAL STONE [id number] 12/25/2017 19:24:00 018 21:34:00 DIS Emergency LAURA FINCH APRN Via [facility] ER KIDNEY STONE [id number] 12/22/2017 17:40:00 018 21:32:00 DIS Emergency ANGEL MATA MD Via [facility] ER LOWER BACK PAIN ;ABD PAIN [id number] 10/27/2017 09:22:00 018 12:37:00 DIS Outpatient NETTIE HAHN DO Via [facility] ENDO DIARRHEA [id number] 10/21/2017 12:15:00 018 13:12:00 DIS Outpatient NETTIE HAHN DO [facility] PREOP COLONOSCOPY [id number] 05/01/2017 10:55:00 017 23:59:59 CLS Outpatient Anshu NEWBERRY MD Via [facility] LAB I73.9 E78.5 I10 R00.2 R 06.02 [id number] 04/09/2017 08:02:00 017 23:59:59 CLS Outpatient Anshu NEWBERRY MD Via [facility] CARD R06.02 SOB,I10 HYPERTEN ALISHA [id number] 04/06/2017 10:00:00 017 23:59:59 CLS Outpatient Anshu NEWBERRY MD [facility] CARD E78.5 HYPERLIPIDEMIA,R0 0.2 PLAPITATIONS, [id number] 02/23/2017 12:59:00 017 15:27:00 DIS Emergency ANGEL MATA MD [facility] ER RT LEG PAIN [id number] 07/14/2016 12:57:00 017 15:46:00 DIS Outpatient ARMINDA FLEMING [facility] REHAB THORACIC HNP; D DD; SPONDYLOSIS [id number] 06/11/2016 05:57:00 017 09:50:00 DIS Outpatient MARISA HOOK MD [facility] CPP [id number] 06/10/2016 09:26:00 11:57:00 DIS Outpatient MARISA HOOK MD [facility] PREOP CPP [id number] 06/07/2016 12:01:00 14:25:00 DIS Emergency MAYRA QUINONES [facility] ER UTI/BLADDER PAIN [id number] 04/14/2016 13:38:00 23:59:59 CLS Outpatient SABIHA MAST MD [facility] RAD ABNORMAL MAMMO [id number] 03/24/2016 08:44:00 11:12:00 DIS Emergency ZABRINA WOLF MD [facility] ER SEIZURE [id number] 03/03/2016 12:27:00 13:18:00 DIS Outpatient BENJI LOMBARDO MD Via [facility] CARD DISC DISORDER [id number] 02/15/2016 12:40:00 14:43:00 DIS Outpatient BENJI LOMBARDO MD Via [facility] CARD DISC DISORDER RADICULOP ATHY THORACIC [id number] 02/01/2016 10:48:00 12:16:00 DIS Outpatient BENJI LOMBARDO MD Via [facility] CARD DISC DISORDER/C RADICUO GENOVEVA [id number] 01/03/2016 11:36:00 13:11:00 DIS Emergency ARCHANA SAUCEDO, ROBI Hastings Via [facility] ER BACK PAIN [id number] 12/06/2015 21:19:00 00:52:00 DIS Emergency LUCIANO SAUCEDO, ZABRINA Cha [facility] ER POSS KIDNEY STO NE [id number] 10/22/2015 13:06:00 15:15:00 DIS Emergency LAURA FINCH APRN Via [facility] ER LOW BP, BACK PAIN, VAGI NAL DISCOMFORT [id number] 10/13/2015 15:18:00 19:56:00 DIS Emergency ROME SAUCEDO, MAGGIE Curry [facility] ER BACK PAIN, BLOOD IN URI NE, SLUGGISH [id number] 09/12/2015 17:41:00 20:21:00 DIS Emergency MORGAN DE LA TORRE, ZOFIA K Vi a [facility] ER BACK PAIN,NAUSEA [id number] 08/03/2015 12:57:00 23:59:59 CLS Outpatient KEZIA SAUCEDO, SABIHA Glaser [facility] RAD SCREENING [id number] 04/09/2015 15:30:00 18:45:00 DIS Emergency LAURA FINCH CAREER PORTALS TEACHER Via [facility] ER BACK PAIN, NECK PAIN, R ARM PAIN [id number] 02/19/2015 09:08:00 09/21/2 015 23:59:59 CLS Outpatient KEZIA SAUCEDO, SABIHA Glaser [facility] RAD THORACIC DISC HERNIATIO N [id number] 02/09/2015 08:30:00 015 10:27:00 DIS Emergency MORGAN ZOFIA DE LA TORRE Uma a [facility] ER BACK PAIN [id number] 11/30/2014 13:37:00 23:59:59 CLS Outpatient MARISA HOOK MD [facility] RAD STONES [id number] 11/27/2014 16:43:00 19:29:00 DIS Emergency LAURA FINCH APRN Via [facility] ER ABD PAIN,NAUSEA,VOMITIN G [id number] 11/07/2014 05:57:00 015 09:40:00 DIS Outpatient MARISA HOOK MD Via [facility] SDC LEFT RENAL STONE [id number] 11/03/2014 15:38:00 23:59:59 CLS Outpatient MARISA HOOK MD [facility] PREOP LEFT RENAL STONE [id number] 10/30/2014 13:05:00 23:59:59 CLS Outpatient MARISA HOOK MD [facility] RAD STONES [id number] 10/26/2014 16:56:00 015 21:22:00 DIS Emergency MAYRA QUINONES [facility] ER DISCOLORED BOWEL [id number] 10/13/2014 17:28:00 015 20:27:00 DIS Emergency LAURA FINCH APRN [facility] ER BACK PAIN [id number] 09/15/2014 17:23:00 015 19:28:00 DIS Emergency ANGEL MATA MD [facility] ER L SIDE PAIN [id number] 09/03/2014 12:35:00 14:32:00 DIS Emergency LAURA FINCH APRN [facility] ER SOA [id number] 07/01/2014 02:39:00 015 05:28:00 DIS Emergency REYNALDO LONDONO DO [facility] ER BACK STOMACH PAIN [id number] 06/20/2014 16:01:00 015 20:05:00 DIS Emergency MAYRA QUINONES [facility] ER HEART RACE;NAUSEA;HEAD ACHE [id number] 05/10/2014 16:40:00 20:21:00 DIS Emergency MAYRA QUINONES [facility] ER FALL [id number] 04/11/2014 07:19:00 11:25:00 DIS Emergency ZABRINA WOLF MD [facility] ER SEIZURE [id number] 04/05/2014 11:34:00 13:50:00 DIS Emergency ZABRINA WOLF MD [facility] ER MULTIPLE COMPLA INTS [id number] 03/24/2014 08:55:00 11:40:00 DIS Emergency ROBI MAGAÑA MD [facility] ER SEIZURE [id number] 03/02/2014 10:14:00 12:26:00 DIS Emergency LAURA FINCH APRN [facility] ER ABDOMINAL PAIN/NAUSEA [id number] 02/28/2014 14:26:00 23:59:59 CLS Outpatient MARISA HOOK MD [facility] RAD STONES [id number] 02/18/2014 16:13:00 18:26:00 DIS Emergency ZOFIA MORA DO Vi [facility] ER POST SURGERY BLEEDING [id number] 02/15/2014 06:52:00 12:20:00 DIS Outpatient MARISA HOOK MD [facility] SDC RIGHT STONE [id number] 02/14/2014 07:35:00 23:59:59 CLS Outpatient MARISA OHOK MD [facility] PREOP RIGHT STONE [id number] 01/31/2014 18:09:00 13:40:00 DIS Inpatient SABIHA MAST MD [facility] 4TH ACUTE RENAL FAILURE;HYP OTENSION [id number] 01/21/2014 17:37:00 18:00:00 DIS Emergency MAYRA QUINONES [facility] ER POST SURGERY RASH [id number] 01/12/2014 06:04:00 10:50:00 DIS Outpatient NETTIE HAHN DO [facility] SDC MASS BACK [id number] 01/10/2014 05:58:00 09:48:00 DIS Outpatient MARISA HOOK MD [facility] BILATERAL RENAL STONES [id number] 01/06/2014 08:11:00 23:59:59 CLS Outpatient NETTIE HAHN DO [facility] PREOP MASS BACK [id number] 01/04/2014 09:45:00 23:59:59 CLS Outpatient MARISA HOOK MD [facility] PREOP BILATERAL RENAL STONES [id number] 01/02/2014 14:09:00 16:43:00 DIS Emergency LAURA FINCH APRN [facility] ER RIGHT FLANK PAIN [id number] 12/23/2013 09:30:00 23:59:59 CLS Outpatient BRODY ARAYA MD [facility] RAD PANCREATITIS,PAIN [id number] 12/20/2013 12:06:00 23:59:59 CLS Outpatient MARISA HOOK MD [facility] RAD STONE [id number] 12/15/2013 14:39:00 10:38:00 DIS Inpatient BRODY ARAYA MD [facility] 4TH ACUTE PANCREATITIS BILA TERAL NEPHROLITHIASIS [id number] 12/14/2013 12:05:00 014 14:58:00 DIS Emergency MORGAN ZOFIA DE LA TORRE [facility] ER RIGHT FLANK PAIN/BLOOD IN URINE [id number] 10/25/2013 16:23:00 014 17:26:00 DIS Emergency MORGAN ZOFIA DE LA TORRE [facility] ER SEIZURE [id number] 09/25/2013 01:21:00 014 04:03:00 DIS Emergency MORGAN ZOFIA DE LA [facility]ORRE [facility] ER N/V/D [id number] 07/21/2013 09:02:00 014 14:31:00 DIS Emergency ROBI MAGAÑA MD [facility] ER LOWER ABD PAIN [id number] 07/11/2013 09:15:00 014 23:59:59 CLS Outpatient MARISA HOOK MD [facility] RAD STONES, ABD PAIN [id number] 06/08/2013 12:35:00 014 23:59:59 CLS Outpatient ROMMEL MCMILLAN A CAREER [employer] TEACHER [facility] RAD BREAST PAIN [id number] 01/04/2013 13:00:00 013 23:59:59 CLS Outpatient MAJOR MORIAH GUITAR TEACHER [facility] QUICK [id number] 01/04/2013 13:06:00 013 16:41:00 DIS Emergency MAYRA QUINONES [facility] ER [facility] [id number] 10/07/2012 14:05:00 013 23:59:59 CLS Outpatient YASSINE KNOX GUITAR TEACHER [facility] RAD LEFT BREAST MAS S,PAIN [id number] 01/04/2020 05:56:[address] Outpatient MARISA HOOK MD [facility] SDC RIGHT PROXIMAL URETERAL STON E [id number] 01/03/2020 15:23:[address] Emergency ERICK RAMOS MD [facility] ER NAUSEA,RT SHOULDER PAIN [id number] 01/03/2020 11:46:[address] Outpatient MARISA HOOK MD [facility] RAD YOLI FLANK PAIN- STONES [id number] 01/11/2018 13:44:00 Document Registration [id number] 01/11/2018 05:46:00 Document Registration [id number] 08/30/2015 07:45:00 Document Registration [id number] 03/19/2015 13:32:00 Document Registration [id number] 08/08/2014 06:22:00 Document Registration [id number] 08/03/2014 06:33:00 Document Registration [id number] 06/30/2014 12:06:00 Document Registration [id number] 06/30/2014 12:06:00 Document Registration [id number] 06/30/2014 12:06:00 Document Registration [id number] 06/30/2014 12:06:00 Document Registration [id number] 06/30/2014 12:06:00 Document Registration [id number] 06/30/2014 12:06:00 Document Registration [id number] 06/30/2014 12:06:00 Document Registration [id number] 06/30/2014 12:06:00 Document Registration [id number] 06/30/2014 12:06:00 Document Registration [id number] 06/30/2014 12:06:00 Document Registration [id number] 06/30/2014 12:06:00 Document Registration [id number] 06/30/2014 12:06:00 Document Registration [id number] 06/30/2014 12:06:00 Document Registration [id number] 05/12/2014 11:04:00 Document Registration [id number] 05/12/2014 11:04:00 Document Registration [id number] 03/09/2012 12:38:00 Document Registration [id number] 03/08/2012 08:23:00 Document Registration [id number] 02/16/2012 09:54:00 Document Registration [id number] 02/09/2012 06:13:00 Document Registration [id number] 02/04/2012 09:15:00 Document Registration [id number] 01/08/2012 13:13:00 Document Registration [id number] 01/03/2012 12:42:00 Document Registration [id number] 01/02/2012 14:02:00 Document Registration [id number] 12/18/2011 16:38:00 Document Registration [id number] 11/29/2011 10:12:00 Document Registration [id number] 11/11/2011 11:28:00 Document Registration [id number] 10/14/2011 17:21:00 Document Registration [id number] 10/12/2011 16:45:00 Document Registration [id number] 08/18/2011 09:12:00 Document Registration [id number] 08/04/2011 18:48:00 Document Registration [id number] 07/28/2011 21:05:00 Document Registration [id number] 07/17/2011 09:36:00 Document Registration [id number] 07/10/2011 15:40:00 Document Registration [id number] 07/09/2011 20:50:00 Document Registration [id number] 06/13/2011 08:19:00 Document Registration [id number] 06/08/2011 19:45:00 Document Registration [id number] 06/06/2011 05:38:00 Document Registration [id number] 06/03/2011 13:07:00 Document Registration [id number] 05/30/2011 10:31:00 Document Registration [id number] 05/12/2011 14:45:00 Document Registration [id number] 05/08/2011 05:32:00 Document Registration [id number] 05/04/2011 13:21:00 Document Registration [id number] 12/27/2010 22:38:00 Document Registration [id number] 12/13/2010 12:21:00 Document Registration [id number] 11/21/2010 22:19:00 Document Registration [id number] 10/26/2010 14:28:00 Document Registration [id number] 10/11/2010 08:23:00 Document Registration [id number] 10/07/2010 11:15:00 Document Registration [id number] 10/05/2010 07:19:00 Document Registration [id number] 10/01/2010 21:19:00 Document Registration [id number] 09/09/2010 22:34:00 Document Registration [id number] 09/05/2010 11:30:00 Document Registration [id number] 09/03/2010 14:01:00 Document Registration [id number] 09/02/2010 15:19:00 Document Registration [id number] 08/26/2010 08:59:00 Document Registration [id number] 08/21/2010 10:13:00 Document Registration [id number] 08/20/2010 15:09:00 Document Registration [id number] 08/18/2010 15:05:00 Document Registration [id number] 08/05/2010 12:01:00 Document Registration [id number] 07/31/2010 14:13:00 Document Registration [id number] 07/30/2010 05:42:00 Document Registration [id number] 07/25/2010 10:15:00 Document Registration [id number] 07/11/2010 11:22:00 Document Registration [id number] 05/14/2010 13:45:00 Document Registration [id number] 04/30/2010 12:53:00 Document Registration [id number] 04/29/2010 12:26:00 Document Registration [id number] 09/12/2009 12:06:00 Document Registration [id number] 08/08/2009 12:06:00 Document Registration [id number] 06/26/2009 13:22:00 Document Registration [id number] 06/13/2009 11:36:00 Document Registration [id number] 06/08/2009 10:26:00 Document Registration [id number] 05/28/2009 15:11:00 Document Registration [id number] 05/22/2009 11:14:00 Document Registration [id number] 05/18/2009 12:08:00 Document Registration [id number] 04/29/2009 19:12:00 Document Registration [id number] 03/30/2009 09:39:00 Document Registration [id number] 2009 12:05:00 Document Registration [id number] 03/19/2009 15:24:00 Document Registration [id number] 09/15/2006 11:53:00 Document Registration [id number] 01/12/2006 12:03:00 Document Registration [id number] 12/24/2005 10:30:00 Document Registration [id number] 12/18/2005 15:24:00 Document Registration [id number] 09/12/2014 11:37:00 09/12/2014 23:59: 59 CLS Outpatient ARGUETA KIKA DE LA TORRE Venkata [id number] 07/20/2014 10:41:00 07/20/2014 23:59: 59 CLS Outpatient ITZ JUNIOR APRN [id number] 04/18/2014 11:17:00 04/18/2014 23:59: 59 CLS Outpatient ITZ JUNIOR APRN [id number] 04/18/2014 11:17:00 04/18/2014 23:59: 59 CLS Outpatient ITZ JUNIOR APRN [id number] 03/24/2014 08:33:00 03/24/2014 23:59: 59 CLS Outpatient KIKA ARGUETA DO [id number] 03/14/2014 10:56:00 03/14/2014 23:59: 59 CLS Outpatient ITZ JUNIOR APRN [id number] 03/09/2014 10:02:00 03/09/2014 23:59: 59 CLS Outpatient BENJI ACOSTA DDS [id number] 03/07/2014 09:38:00 03/07/2014 23:59: 59 CLS Outpatient SABIHA MAST MD [id number] 02/27/2014 16:24:00 02/27/2014 23:59: 59 CLS Outpatient BENJI ACOSTA DDS [id number] 02/07/2014 11:43:00 02/07/2014 23:59: 59 CLS Outpatient ITZ JUNIOR APRN [id number] 01/04/2014 13:20:00 01/04/2014 23:59: 59 CLS Outpatient BRODY ARAYA MD [id number] 12/22/2013 11:08:00 12/22/2013 23:59: 59 CLS Outpatient BRODY ARAYA MD [id number] 12/08/2013 11:17:00 12/08/2013 23:59: 59 CLS Outpatient ITZ JUNIOR APRN [id number] 12/08/2013 11:17:00 12/08/2013 23:59: 59 CLS Outpatient ITZ JUNIOR APRN [id number] 11/09/2013 13:20:00 11/09/2013 23:59: 59 CLS Outpatient DILSHAD LSARASH DIAZ Lewis [id number] 09/20/2013 12:11:00 09/20/2013 23:59: 59 CLS Outpatient DILSHAD LSCSARASH Lewis [id number] 09/20/2013 12:11:00 09/20/2013 23:59: 59 CLS Outpatient MARLENE CABRERA APRN [id number] 09/08/2013 12:22:00 09/08/2013 23:59: 59 CLS Outpatient KIKA ARGUETA DO [id number] 07/19/2013 08:49:00 07/19/2013 23:59: 59 CLS Outpatient DILSHAD LSCSARASH Lewis [id number] 07/15/2013 14:34:00 07/15/2013 23:59: 59 CLS Outpatient REYNALDO VIEIRA APRN [id number] 07/15/2013 14:34:00 07/15/2013 23:59: 59 CLS Outpatient REYNALDO VIEIRA APRN [id number] 07/01/2013 10:33:00 07/01/2013 23:59: 59 CLS Outpatient BRODY ARAYA MD [id number] 06/15/2013 13:32:00 06/15/2013 23:59: 59 CLS Outpatient RAFAEL ROTHMANHOMAR Saucedo [id number] 05/16/2013 09:46:00 05/16/2013 23:59: 59 CLS Outpatient MARLENE CABRERA APRN [id number] 04/08/2013 13:42:00 04/08/2013 23:59: 59 CLS Outpatient KIKA ARGUETA DO [id number] 04/07/2013 00:00:00 04/07/2013 23:59: 59 CLS Outpatient MARLENE CABRERA APRN [id number] 03/23/2013 12:41:00 03/23/2013 23:59: 59 CLS Outpatient SABIHA MAST MD [id number] 02/28/2013 10:32:00 02/28/2013 23:59: 59 CLS Outpatient REYNALDO VIEIRA APRN [id number] 02/28/2013 10:32:00 02/28/2013 23:59: 59 CLS Outpatient REYNALDO VIEIRA APRN [id number] 02/23/2013 12:03:00 02/23/2013 23:59: 59 CLS Outpatient REYNALDO IVEIRA APRN [id number] 08/06/2012 13:58:00 08/06/2012 23:59: 59 CLS Outpatient ARASH ROTHMAN [id number] 08/06/2012 12:23:00 08/06/2012 23:59: 59 CLS Outpatient [id number] 08/06/2012 12:23:00 08/06/2012 23:59: 59 CLS Outpatient MARLENE CABRERA APRN Semaj [id number] 07/21/2012 13:57:00 07/21/2012 23:59: 59 CLS Outpatient DILSHAD LSARASH DIAZ Lewis [id number] 07/07/2012 12:53:00 07/07/2012 23:59: 59 CLS Outpatient KIKA ARGUETA DO [id number] 06/24/2012 17:13:00 06/24/2012 23:59: 59 CLS Outpatient [id number] 06/24/2012 17:13:00 06/24/2012 23:59: 59 CLS Outpatient [id number] 05/21/2012 11:23:00 05/21/2012 23:59: 59 CLS Outpatient REYNALDO VIEIRA APRN [id number] 04/30/2012 13:18:00 04/30/2012 23:59: 59 CLS Outpatient [id number] 03/31/2012 10:14:00 03/31/2012 23:59:5 9 CLS Outpatient MASSIEL FERGUSON DO [id number] 01/03/2013 14:23:00 Document Registration [id number] 12/28/2012 11:34:00 Document Registration [id number] 12/25/2012 12:36:00 Document Registration [id number] 11/19/2012 12:56:00 Document Registration [id number] 11/15/2012 15:50:00 Document Registration [id number] 11/12/2012 10:49:00 Document Registration [id number] 11/05/2012 10:54:00 Document Registration [id number] 10/28/2012 12:49:00 Document Registration [id number] 09/28/2012 15:46:00 Document Registration [id number] 09/22/2012 17:00:00 Document Registration [id number] 09/16/2012 14:58:00 Document Registration [id number] 09/16/2012 14:58:00 Document Registration [id number] 09/16/2012 10:42:00 Document Registration
[2020-01-04] MEDS ORDERED: proPOfol 200 MG/20 ML (DIPRIVAN) VIAL IV ONE (07:07)
[2020-01-04] MEDS ORDERED: ONDANSETRON 4 MG/2 ML (SDV) Z0FRAN ONE (07:07)
[2020-01-04] MEDS ORDERED: LIDOCAINE PF 2% 5 ML (XYLOCAINE) VIAL ONE (07:07)
[2020-01-04] MEDS ORDERED: fentaNYL INJECTION 100 MCG/2 ML AMP ONE (07:08)
[2020-01-04] MEDS ORDERED: MIDAZOLAM 2 MG/2 ML (VERSED) VIAL ONE (07:11)
[2020-01-04] MEDS ORDERED: SCOPOLAMINE 1.5 MG (TRANSDERM-SCOP) PATCH ONE (07:11)
[2020-01-04] MEDS ORDERED: SEVOFLURANE (ULTANE) 15 ML INHAL SOLN ONE ×3 (07:13→08:07)
[2020-01-04] MEDS ORDERED: FAMOTIDINE 20MG/2ML IV (PEPCID) IV ONE (07:15)
[2020-01-04] MEDS ORDERED: SCOPOLAMINE 1.5 MG (TRANSDERM-SCOP) PATCH TOP ONE (07:15)
[2020-01-04] MEDS ORDERED: MIDAZOLAM 2 MG/2 ML (VERSED) VIAL IV ONE (07:15)
--- NOTE | 2020-01-04 07:15 | Progress Note-Pre Operative ---
Pre-Operative Progress Note H&P Reviewed The H&P was reviewed, patient examined and no changes noted. Date Seen by Provider: Jan 04, 2020 Time Seen by Provider: 07:14 Date H&P Reviewed: Jan 04, 2020 Time H&P Reviewed: 07:14 Pre-Operative Diagnosis: RT PROXIMAL URETERAL AND BILATERAL RENAL STONES MARISA HOOK MD Jan 04, 2020 07:15
[2020-01-04] MEDS ORDERED: ROCURONIUM 10 MG/ML 5 ML SYRINGE IV ONE (07:18)
[2020-01-04] MEDS ORDERED: ceFAZolin INJECTION 0 MG ONE (07:22)
[2020-01-04] MEDS ORDERED: WATER (STERILE) FOR INJECTION 0 ML ONE (07:22)
--- NOTE | 2020-01-04 07:46 | Diagnostic Imaging Report ---
INDICATION: Follow-up kidney stone. Comparison with 01/03/2020. FINDINGS: Bilateral lower pole calyceal calculi are again noted and unchanged. There does appear to be a 3 mm calculus within the right ureter overlying the transverse process of L4. IMPRESSION: Probable small ureteral calculus mid right ureter. Bilateral nephrolithiasis again noted. Dictated by: Dictated on workstation # [id number]
--- NOTE | 2020-01-04 08:00 | Progress Note-Post Operative ---
Post-Operative Progess Note Surgeon (s)/Skate Boarder (s) Surgeon MARISA HOOK MD Skate Boarder: NONE Pre-Operative Diagnosis RT PROXIMAL URETERAL AND BILATERAL RENAL STONES Post-Operative Diagnosis SAME Procedure & Operative Findings Date of Procedure 01/04/20 Procedure Performed/Findings CYSTOSCOPY WITH RT URETERAL STONE MANIPULATION AND STENT Anesthesia Type GENERAL Estimated Blood Loss Estimated blood loss (mL): NONE Specimens/Packing Specimens Removed NONE Packing: NONE MARISA HOOK MD Jan 04, 2020 08:00
--- NOTE | 2020-01-04 08:04 | Discharge Inst-Urology ---
Discharge Inst-Urology Reconcile Patient Problems Problems Reviewed?: Yes Final Diagnosis RT URETERAL AND BILATERAL RENAL STONES Patient Instructions/Follow Up Plan/Assessment/Instructions Please make appointment to been seen in office Monday 01/08, KUB prior to it KUB on way home Increase oral fluids for 48 hours and then as needed. Diet and Activity as tolerated. If questions or concerns contact your physician Or seek help at emergency department. MARISA HOOK MD Jan 04, 2020 08:04
[2020-01-04] MEDS ORDERED: fentaNYL INJECTION 100 MCG/2 ML AMP IVP ONE (08:15)
[2020-01-04] MEDS ORDERED: MEPERIDINE (DEMEROL) INJ 50 MG/ML IVP ONE (08:15)
[2020-01-04] MEDS ORDERED: LACTATED RINGERS 1,000 ML IV PRN (08:16)
[2020-01-04] MEDS ORDERED: PROMETHAZINE INJ 25 MG/ML (PHENERGAN) AMP ONE (09:11)
[2020-01-04] MEDS ORDERED: PROMETHAZINE INJ 25 MG/ML (PHENERGAN) AMP IVP ONE (09:15)
--- NOTE | 2020-01-04 09:21 | Anesthesia-General Post-Op ---
General Patient Condition Mental Status/LOC: Same as Preop Cardiovascular: Satisfactory Nausea/Vomiting: Absent Respiratory: Satisfactory Pain: Controlled Complications: Absent Post Op Complications Complications None Follow Up Care/Instructions Patient Instructions None needed. Anesthesia/Patient Condition Patient Condition Patient is doing well, no complaints, stable vital signs, no apparent adverse anesthesia problems. No complications reported per nursing. NI ORTIZ CRNA Jan 04, 2020 09:21
[2020-01-04] MEDS ORDERED: TMSL.4C PO ×2 (09:29)
[2020-01-04] MEDS ORDERED: HYOS0.1281 PO ×2 (09:29)
[2020-01-04] MEDS ORDERED: CEPH-507 PO ×2 (09:29)
--- NOTE | 2020-01-04 10:09 | Diagnostic Imaging Report ---
INDICATION: Stent placement. EXAMINATION: KUB at 10:07 AM. FINDINGS: There are postop changes from cholecystectomy. There is a right double-J ureteral stent. There is bilateral nephrolithiasis. There are some surgical tristan in the left pelvis. IMPRESSION: Bilateral nephrolithiasis. The right double-J ureteral stent appears to be in good position. Dictated by: Dictated on workstation # [id number]
--- NOTE | 2020-01-04 12:47 | OPERATIVE REPORT ---
DATE OF SERVICE: 01/04/2020 PREOPERATIVE DIAGNOSIS: Right proximal ureteral and bilateral renal stones. POSTOPERATIVE DIAGNOSIS: Right proximal ureteral and bilateral renal stones. OPERATION PERFORMED: Cystoscopy, right ureteral stone manipulation and insertion of a stent. SURGEON: Eber Hook MD ANESTHESIA: General. COMPLICATIONS: None. DESCRIPTION OF PROCEDURE: Under satisfactory general anesthesia, the patient in lithotomy position, genitalia were prepped and draped in the usual sterile fashion. Cystoscope was introduced in the bladder that was essentially normal with a sluggish efflux on the right side. Using the foroblique lens, I passed a 6-Latvian 26 cm stent through the right ureteral orifice and guided fluoroscopically. I was able to bypass the stone all the way up to the renal pelvis, guided fluoroscopically. I removed the guidewire. The stent was seen jetting nicely proximally fluoroscopically and distally endoscopically. Bladder was evacuated and the cystoscope was removed. The patient tolerated the procedure and anesthesia well and was sent to recovery room in stable condition. PLAN: We will see her back next Thursday to set her up for ESWL next Thursday. This plan was fully explained to her before surgery, and to her after surgery. Job ID: [id number] DocumentID: [id number] Dictated Date: 01/04/2020 08:07:46 Stopper Grinder Date: 01/04/2020 12:47:10 Dictated By: EBER HOOK MD
== END 2020-01-04 10:25 ==
LOC: SDC 05:56
PROVIDERS: ATTEND Urology
DX: N20.2 Calculus of kidney with calculus of ureter (principal); I10 Essential (primary) hypertension; K21.9 Gastro-esophageal reflux disease without esophagitis; K44.9 Diaphragmatic hernia without obstruction or gangrene; G47.33 Obstructive sleep apnea (adult) (pediatric); J44.9 Chronic obstructive pulmonary disease, unspecified; J40 Bronchitis, not specified as acute or chronic; F32.9 Major depressive disorder, single episode, unspecified; F41.9 Anxiety disorder, unspecified; Z79.899 Other long term (current) drug therapy; Z88.5 Allergy status to narcotic agent; Z88.2 Allergy status to sulfonamides; Z88.8 Allergy status to other drugs, medicaments and biological substances
CPT/HCPCS: 52330; 52332; 74018; 76000; 87081; C2625

== ENCOUNTER 2020-01-09 05:41 | Outpatient (CLI) | payer MEDICARE ==
[~2020-01-09] VITALS: Ht 162 cm; Wt 72.5 kg
== END 2020-01-09 15:33 ==
LOC: PREOP 05:41 → EDSTATUS 13:30 → PREOP 15:33
PROVIDERS: ATTEND Urology
DX: Z01.818 Encounter for other preprocedural examination (principal); N20.1 Calculus of ureter

== ENCOUNTER → 2020-01-09 | Outpatient (CLI) | payer MEDICARE ==
[~2020-01-09] MED LIST changes: +HYOS0.1281 PO; +NAPR220T66 PO
--- NOTE | 2020-01-09 15:07 | Diagnostic Imaging Report ---
INDICATION: Right ureteral stone, followup. TIME OF EXAM: 2:40 PM. COMPARISON: 01/04/2020. FINDINGS: The right-sided double-J nephroureteral stent remains in place. Bilateral nephrolithiasis is again seen. There is a density adjacent to the proximal aspect of the right stent, suggestive of a small proximal right ureteric calculus. No other calculi along the course of the stent are identified. The bowel gas pattern is unremarkable. IMPRESSION: Bilateral urinary tract calculi, as described. There appears to be a small calculus along the proximal right ureteral stent. This is in similar position to the examination of 5 days earlier. Dictated by: Dictated on workstation # [id number]
== END ==
LOC: RAD 14:20
PROVIDERS: ATTEND Urology
DX: N20.1 Calculus of ureter (principal)
CPT/HCPCS: 74018

== ENCOUNTER 2020-01-11 06:23 | Day surgery (SDC) | payer MEDICARE ==
[~2020-01-11] VITALS: Ht 162 cm; Wt 72.5 kg
[2020-01-11] VITALS (11 sets, daily range): BP systolic 119–163; BP diastolic 85–105
[2020-01-11] MEDS ORDERED: LACTATED RINGERS 1,000 ML IV PRN (06:46)
[2020-01-11] MEDS ORDERED: cefTRIAXone FOR IV USE 1,000 MG in WATER (STERILE) FOR INJECTION 10 ML IV ONE (07:00)
--- NOTE | 2020-01-11 07:07 | Progress Note-Pre Operative ---
Pre-Operative Progress Note H&P Reviewed The H&P was reviewed, patient examined and no changes noted. Date Seen by Provider: Jan 11, 2020 Time Seen by Provider: 07:06 Date H&P Reviewed: Jan 11, 2020 Time H&P Reviewed: 07:06 Pre-Operative Diagnosis: RT PROXIMAL URETERAL STONE MARISA HOOK MD Jan 11, 2020 07:06
--- NOTE | 2020-01-11 07:07 | Progress Note-Post Operative ---
Post-Operative Progess Note Surgeon (s)/Injection Molding Machine Offbearer (s) Surgeon MARISA HOOK MD Injection Molding Machine Offbearer: NONE Pre-Operative Diagnosis RT PROXIMAL URETERAL STONE Post-Operative Diagnosis SAME Procedure & Operative Findings Date of Procedure 01/11/20 Procedure Performed/Findings RT ESWL Anesthesia Type GENERAL Estimated Blood Loss Estimated blood loss (mL): NONE Specimens/Packing Specimens Removed NONE Packing: NONE MARISA HOOK MD Jan 11, 2020 07:07
--- NOTE | 2020-01-11 07:10 | Discharge Inst-Urology ---
Discharge Inst-Urology Reconcile Patient Problems Problems Reviewed?: Yes Final Diagnosis RT PROXIMAL URETERAL STONE Patient Instructions/Follow Up Plan/Assessment/Instructions Please make appointment to been seen in office in 1 week. KUB prior to it KUB on way home Post ESWL instructions Increase oral fluids for 48 hours and then as needed. Diet and Activity as tolerated. If questions or concerns contact your physician Or seek help at emergency department. MARISA HOOK MD Jan 11, 2020 07:10
[2020-01-11] MEDS ORDERED: fentaNYL INJECTION 100 MCG/2 ML AMP ONE ×2 (07:50→08:32)
[2020-01-11] MEDS ORDERED: ONDANSETRON 4 MG/2 ML (SDV) Z0FRAN ONE ×3 (07:51→09:43)
[2020-01-11] MEDS ORDERED: fentaNYL INJECTION 100 MCG/2 ML AMP IV ONE (08:00)
[2020-01-11] MEDS ORDERED: FUROSEMIDE 40 MG/4 ML INJ (LASIX) ONE (08:32)
[2020-01-11] MEDS ORDERED: MIDAZOLAM 2 MG/2 ML (VERSED) VIAL ONE (08:32)
[2020-01-11] MEDS ORDERED: PROPOFOL INJECTION 50 ML IV ONE (08:32)
[2020-01-11] MEDS ORDERED: proPOfol 200 MG/20 ML (DIPRIVAN) VIAL IV ONE (08:32)
--- NOTE | 2020-01-11 08:39 | Diagnostic Imaging Report ---
EXAMINATION: Abdominal radiographs, single supine view. DATE: January 11, 2020. CLINICAL INDICATION: 49-year-old female, right ureteral stone. COMPARISON: January 09, 2020. COMMENTS: There is a right ureteral stent. There are right upper quadrant surgical clips. There are calcifications projecting over the inferior aspect of the left renal shadow and also overlying the right renal shadow. There is question of a calcification at the level of the right L3 transverse process which is somewhat similar in position to the previously questioned area of opacification. There are surgical clips in the region of the left pelvis. There are no grossly distended gas-filled segments of bowel. IMPRESSION: 1. A right ureteral stent is noted. 2. There is a questionable calcification near the level of the right L3 transverse process which is fairly similar in position to the finding questioned on January 09, 2020. This would be better evaluated with a CT abdomen/pelvis without contrast, if needed. 3. Probable bilateral renal stones. Dictated by: Dictated on workstation # [id number]
[2020-01-11] MEDS ORDERED: fentaNYL INJECTION 100 MCG/2 ML AMP IVP ONE (09:45)
[2020-01-11] MEDS: ONDANSETRON 4 MG/2 ML (SDV) Z0FRAN IVP PRN ×2 (10:11→10:47)
--- NOTE | 2020-01-11 10:35 | NUR ---
THIS RN PHONED DR. HOOK AND INFORMED PATIENT IS ALLERGIC TO TRAMADOL AND IS REQUESTING PAIN MEDICATION. DR. HOOK GAVE TELEPHONE ORDER FOR PATIENT TO TAKE TYLENOL, ALEVE OR IBUPROFEN FOR PAIN AT HOME AND GAVE ORDER FOR 500MG ALEVE ONCE PRIOR TO DISCHARGE.
[2020-01-11] MEDS ORDERED: PROMETHAZINE INJ 25 MG/ML (PHENERGAN) AMP ONE (10:45)
[2020-01-11] MEDS ORDERED: NAPROXEN 250 MG (NAPROSYN) TABLET PO ONE (10:45)
--- NOTE | 2020-01-11 10:54 | OPERATIVE REPORT ---
DATE OF SERVICE: 01/11/2020 PREOPERATIVE DIAGNOSIS: Right proximal ureteral stone. POSTOPERATIVE DIAGNOSIS: Right proximal ureteral stone. OPERATION PERFORMED: Right ESWL. SURGEON: Eber Hook MD ANESTHESIA: General. COMPLICATIONS: None. DESCRIPTION OF PROCEDURE: Under satisfactory general anesthesia, the patient supine on the ESWL table, the right proximal ureteral stone was localized. Shocks were delivered at kV of 6. Total of 3000 shocks completely fragmented the stone that was not visualized anymore. The patient received 40 mg of Lasix at the end of the procedure. She is allergic to Toradol. She tolerated the procedure and anesthesia well and was sent to the recovery room in a stable condition. Job ID: [id number] DocumentID: [id number] Dictated Date: 01/11/2020 09:16:06 Cnc Router Operator Date: 01/11/2020 10:53:23 Dictated By: EBER HOOK MD
[2020-01-11] MEDS ORDERED: PROMETHAZINE INJ 25 MG/ML (PHENERGAN) AMP IVP ONE (11:00)
--- NOTE | 2020-01-11 11:02 | NUR ---
PATIENT STATES DOESN'T TAKE MOTRIN SO INFORMED TO TAKE TYLENOL OR ALEVE. THIS RN AT 1035 INFORMED PRANAY FELDMAN CRNA ABOUT NAUSEA AND GAVE VERBAL ORDER FOR 12.5MG PHENERGAN.
--- NOTE | 2020-01-11 11:23 | Diagnostic Imaging Report ---
INDICATION: Nephrolithiasis KUB 11:23 AM There is a 7 mm cluster of stone fragments projecting over the inferior pole of the left kidney. There is a 4 mm calculus or cluster of calculi in lower pole calyx of the right kidney. There is right double-J ureteral stent in place. There are some surgical tristan in the left-sided pelvis. IMPRESSION: Bilateral nephrolithiasis. Right double-J ureteral stent appears to be in appropriate position. No appreciable change in appearance of abdomen compared to earlier in the day. Dictated by: Dictated on workstation # [id number]
--- NOTE | 2020-01-11 14:18 | Anesthesia-General Post-Op ---
General Patient Condition Mental Status/LOC: Same as Preop Cardiovascular: Satisfactory Nausea/Vomiting: Present (Pt had nausea post-op, better after Phenergan 12.5 mg IV. D/C to home.) Respiratory: Satisfactory Pain: Controlled Complications: Absent Post Op Complications Complications None Follow Up Care/Instructions Patient Instructions None needed. Anesthesia/Patient Condition Patient Condition Patient was doing well, no complaints, stable vital signs, no apparent adverse anesthesia problems. MELITON RICH DO Jan 11, 2020 14:18
== END 2020-01-11 11:35 | disposition home or self-care (01) ==
LOC: SDC 06:23
PROVIDERS: ATTEND Urology
DX: N20.2 Calculus of kidney with calculus of ureter (principal); I12.9 Hypertensive chronic kidney disease with stage 1 through stage 4 chronic kidney disease, or unspecified chronic kidney disease; N18.9 Chronic kidney disease, unspecified; J45.909 Unspecified asthma, uncomplicated; G47.33 Obstructive sleep apnea (adult) (pediatric); F41.9 Anxiety disorder, unspecified; F32.9 Major depressive disorder, single episode, unspecified; K21.9 Gastro-esophageal reflux disease without esophagitis; K44.9 Diaphragmatic hernia without obstruction or gangrene; Z79.899 Other long term (current) drug therapy; Z79.51 Long term (current) use of inhaled steroids; Z88.2 Allergy status to sulfonamides; Z88.5 Allergy status to narcotic agent; Z88.8 Allergy status to other drugs, medicaments and biological substances
CPT/HCPCS: 74018; 87081

== ENCOUNTER → 2020-01-19 | Outpatient (CLI) | payer MEDICARE ==
--- NOTE | 2020-01-19 15:57 | Diagnostic Imaging Report ---
INDICATION: Right upper ureteral stone, post as well. TIME OF EXAM: 3:01 PM. COMPARISON: Correlation is made with prior radiograph from 01/11/2020. FINDINGS: Right-sided double-J nephroureteral stent remains in place. The calculus overlying the lower pole of right kidney is unchanged. There is a calculus overlying the lower pole of left kidney, unchanged as well. No definite calculus along the course of the stent are identified. No calculi along the course of the left ureter identified. Multiple surgical clips in the left pelvis. IMPRESSION: Stable KUB when compared to examination from 01/11/2020. Dictated by: Dictated on workstation # [id number]
== END ==
LOC: RAD 14:29
PROVIDERS: ATTEND Urology
DX: N20.1 Calculus of ureter (principal)
CPT/HCPCS: 74018

== ENCOUNTER 2020-02-07 05:54 | Outpatient (CLI) | payer MEDICARE ==
[~2020-02-07] VITALS: Ht 162 cm; Wt 72.5 kg
[2020-02-08] MEDS ORDERED: CEPH-507 PO (09:31)
[2020-02-08] MEDS ORDERED: TMSL.4C PO (09:31)
[2020-02-08] MEDS ORDERED: OXYC-471 PO (09:34)
== END 2020-02-07 15:46 ==
LOC: PREOP 05:54
PROVIDERS: ATTEND Urology
DX: Z01.818 Encounter for other preprocedural examination (principal)

== ENCOUNTER → 2020-02-07 | Outpatient (CLI) | payer MEDICARE ==
--- NOTE | 2020-02-07 14:43 | Diagnostic Imaging Report ---
INDICATION: Nephrolithiasis. Comparison made with prior examination from 01/19/2020. FINDINGS: The right nephroureteral stent has been removed. There is bilateral nephrolithiasis which is essentially unchanged. The bowel gas pattern is nonspecific. IMPRESSION: Persistent bilateral nephrolithiasis. Interval removal of the right nephroureteral stent. Dictated by: Dictated on workstation # [id number]
== END ==
LOC: RAD 13:34
PROVIDERS: ATTEND Urology
DX: N20.0 Calculus of kidney (principal)
CPT/HCPCS: 74018

== ENCOUNTER 2020-02-08 05:58 | Day surgery (SDC) | payer MEDICARE ==
[2020-02-08] VITALS (11 sets, daily range): BP systolic 99–143; BP diastolic 67–94
[~2020-02-08] VITALS: Ht 162 cm; Wt 72.5 kg
[2020-02-08] MEDS ORDERED: LACTATED RINGERS 1,000 ML IV PRN (06:32)
[2020-02-08] MEDS ORDERED: cefTRIAXone FOR IV USE 1,000 MG in WATER (STERILE) FOR INJECTION 10 ML IV ONE (06:45)
[2020-02-08] MEDS ORDERED: MIDAZOLAM 2 MG/2 ML (VERSED) VIAL ONE (06:59)
[2020-02-08] MEDS ORDERED: LIDOCAINE PF 2% 5 ML (XYLOCAINE) VIAL ONE (06:59)
[2020-02-08] MEDS ORDERED: proPOfol 200 MG/20 ML (DIPRIVAN) VIAL IV ONE (06:59)
[2020-02-08] MEDS ORDERED: CATHETER FLUSH 10 ML SYR IV PRN (07:00)
[2020-02-08] MEDS ORDERED: fentaNYL INJECTION 100 MCG/2 ML AMP ONE (07:00)
[2020-02-08] MEDS ORDERED: SEVOFLURANE (ULTANE) 15 ML INHAL SOLN ONE ×3 (07:00→08:00)
[2020-02-08] MEDS ORDERED: PROMETHAZINE INJ 25 MG/ML (PHENERGAN) AMP ONE ×2 (07:02→09:11)
--- NOTE | 2020-02-08 07:06 | Progress Note-Pre Operative ---
Pre-Operative Progress Note H&P Reviewed The H&P was reviewed, patient examined and no changes noted. Date Seen by Provider: Feb 08, 2020 Time Seen by Provider: 07:06 Date H&P Reviewed: Feb 08, 2020 Time H&P Reviewed: 07:06 Pre-Operative Diagnosis: LT RENAL STONE MARISA HOOK MD Feb 08, 2020 07:06
--- NOTE | 2020-02-08 07:19 | Progress Note-Post Operative ---
Post-Operative Progess Note Surgeon (s)/Physician Assistant Certified (s) Surgeon MARISA HOOK MD Physician Assistant Certified: NONE Pre-Operative Diagnosis LT RENAL STONE Post-Operative Diagnosis SAME Procedure & Operative Findings Date of Procedure 02/08/20 Procedure Performed/Findings LT ESWL Anesthesia Type GENERAL Estimated Blood Loss Estimated blood loss (mL): NONE Specimens/Packing Specimens Removed NONE Packing: NONE MARISA HOOK MD Feb 08, 2020 07:19
--- NOTE | 2020-02-08 07:20 | Discharge Inst-Urology ---
Discharge Inst-Urology Reconcile Patient Problems Problems Reviewed?: Yes Final Diagnosis LT RENAL STONE Patient Instructions/Follow Up Plan/Assessment/Instructions Please make appointment to been seen in office in 2 weeks. KUB prior to it KUB on way home Post ESWL instructions Increase oral fluids for 48 hours and then as needed. Diet and Activity as tolerated. If questions or concerns contact your physician Or seek help at emergency department. MARISA HOOK MD Feb 08, 2020 07:20
[2020-02-08] MEDS ORDERED: FUROSEMIDE 40 MG/4 ML INJ (LASIX) ONE (07:57)
--- NOTE | 2020-02-08 08:55 | OPERATIVE REPORT ---
DATE OF SERVICE: 02/08/2020 PREOPERATIVE DIAGNOSIS: Left renal stone. POSTOPERATIVE DIAGNOSIS: Left renal stone. OPERATION PERFORMED: Left ESWL. SURGEON: Eber oHok MD ANESTHESIA: General. COMPLICATIONS: None. DESCRIPTION OF PROCEDURE: Under satisfactory general anesthesia, the patient in supine position on the ESWL table, the left renal stone was localized. Shocks were delivered at kV of 6. Total of 3000 shocks completely fragmented the stone that was hardly seen. The patient received 40 mg of Lasix IV, could not give her Toradol because she is allergic to it. She tolerated the procedure and anesthesia well and was sent to recovery room in stable condition. Job ID: [id number] DocumentID: [id number] Dictated Date: 02/08/2020 07:52:34 Building Principal Date: 02/08/2020 08:54:03 Dictated By: EBER HOOK MD
[2020-02-08] MEDS ORDERED: PROMETHAZINE INJ 25 MG/ML (PHENERGAN) AMP IVP ONE ×2 (09:30)
[2020-02-08] MEDS ORDERED: TMSL.4C PO (09:31)
[2020-02-08] MEDS ORDERED: CEPH-507 PO (09:31)
[2020-02-08] MEDS ORDERED: OXYC-471 PO (09:34)
--- NOTE | 2020-02-08 09:49 | Anesthesia-General Post-Op ---
General Patient Condition Mental Status/LOC: Same as Preop Cardiovascular: Satisfactory Nausea/Vomiting: Absent Respiratory: Satisfactory Pain: Controlled Complications: Absent Post Op Complications Complications None Follow Up Care/Instructions Patient Instructions None needed. Anesthesia/Patient Condition Patient Condition Patient is doing well, no complaints, stable vital signs, no apparent adverse anesthesia problems. No complications reported per nursing. JAVON RAMIREZ CRNA Feb 08, 2020 09:49
--- NOTE | 2020-02-08 10:27 | Diagnostic Imaging Report ---
INDICATION: Status post ESWL. COMPARISON: Earlier the same day FINDINGS: Two supine radiographic views of the abdomen were obtained. Previously described 19 mm calculus projecting over the left renal fossa is no longer identified. Multiple surgical clips are again noted within the left hemipelvis. No other unexpected extraosseous calcifications or radiopaque foreign bodies are seen. Small bowel loops are nondistended. Moderate air and stool seen scattered throughout the colon. Osseous structures show no acute abnormalities. IMPRESSION: 1. Interval resolution of previously described left-sided calculus. Dictated by: Dictated on workstation # [id number]
== END 2020-02-08 10:20 | disposition home or self-care (01) ==
LOC: SDC 05:58
PROVIDERS: ATTEND Urology
DX: N20.0 Calculus of kidney (principal); J45.909 Unspecified asthma, uncomplicated; I10 Essential (primary) hypertension; M79.7 Fibromyalgia; E78.5 Hyperlipidemia, unspecified; G47.33 Obstructive sleep apnea (adult) (pediatric); F32.9 Major depressive disorder, single episode, unspecified; F41.9 Anxiety disorder, unspecified; K21.9 Gastro-esophageal reflux disease without esophagitis; Z99.89 Dependence on other enabling machines and devices; Z79.899 Other long term (current) drug therapy; Z88.2 Allergy status to sulfonamides; Z88.1 Allergy status to other antibiotic agents; Z88.5 Allergy status to narcotic agent; Z88.8 Allergy status to other drugs, medicaments and biological substances; Z11.2 Encounter for screening for other bacterial diseases
CPT/HCPCS: 74018; 87081

== ENCOUNTER 2020-02-11 21:52 | Emergency (ER) | payer MEDICARE ==
[~2020-02-11] VITALS: Ht 156.2 cm; Wt 74.3 kg
--- NOTE | 2020-02-11 22:12 | ED Abdominal Pain ---
General Stated Complaint: LLQ PAIN, Source of Information: Patient Exam Limitations: No Limitations History of Present Illness Date Seen by Provider: Feb 11, 2020 Time Seen by Provider: 22:12 Initial Comments 49-year-old female presents with left flank and left lower quadrant abdominal pain. Patient has a known history of kidney stones. She had a recent lithotripsy on both her right and left due to kidney stones. Reports that her left lithotripsy was done last week. Patient reports that she was doing good until today when she developed some worsening pain first in the left flank patient presents because the pain has gotten worse throughout the day. She also has some nausea. She denies any fevers chills or urinary symptoms. Allergies and Home Medications Allergies Coded Allergies: Sulfa (Sulfonamide Antibiotics) (Verified Allergy, Unknown, 02/08/20) famotidine (Verified Allergy, Unknown, dry heaves, 02/08/20) hydrocodone (Verified Allergy, Unknown, itching. Pt has received hydromorphone w/o issue, 02/07/20) NOTE: Patient has taken Percocet and Lortab as home meds as recent as 12/25/17 ketorolac (Unverified Allergy, Unknown, 02/07/20) ketorolac tromethamine (Verified Allergy, Unknown, 02/07/20) levofloxacin (Unverified Allergy, Unknown, 02/07/20) GIVES HER THRUSH nitrofurantoin (Unverified Allergy, Unknown, 02/07/20) ondansetron (Verified Allergy, Unknown, 02/07/20) tramadol (Unverified Allergy, Unknown, 02/07/20) codeine (Unverified Adverse Reaction, Unknown, 02/07/20) Home Medications Albuterol Sulfate 1 Puff Puff, 2 PUFF IH Q4H, (Reported) 1 PUFF = 90 MCG Alprazolam 1 Mg Tablet, 2 MG PO HS, (Reported) TAKES 2 (1MG) TABLETS Amlodipine Besylate 2.5 Mg Tablet, 2.5 MG PO DAILY, (Reported) Cephalexin 500 Mg Capsule, 500 MG PO BID Prescribed by: BILLIE HULL on 02/08/20 0931 Gabapentin 300 Mg Capsule, 300 MG PO BID, (Reported) Hyoscyamine Sulfate 0.125 Mg Tablet, 1-2 TAB PO Q4H Prescribed by: BILLIE HULL on 01/04/20 0929 Metoprolol Tartrate 50 Mg Tablet, 50 MG PO BID, (Reported) Oxycodone HCl/Acetaminophen 1 Each Tablet, 1-2 EACH PO Q4H PRN for PAIN-SEVERE Prescribed by: BILLIE HULL on 02/08/20 0934 Quetiapine Fumarate 400 Mg Tablet, 400 MG PO HS, (Reported) Ropinirole HCl 0.25 Mg Tablet, 0.25 MG PO HS, (Reported) Rosuvastatin Calcium 10 Mg Tablet, 10 MG PO DAILY, (Reported) Tamsulosin HCl 0.4 Mg Cap, 0.4 MG PO DAILY Prescribed by: BILLIE HULL on 02/08/20 0931 Trazodone HCl 150 Mg Tablet, 300 MG PO HS, (Reported) Patient Home Medication List Home Medication List Reviewed: Yes Review of Systems Review of Systems Constitutional: No chills, No fever EENTM: No Symptoms Reported Respiratory: Denies Cough, Denies Shortness of Air Gastrointestinal: See HPI, Abdominal Pain; Denies Constipated; Nausea; Denies Vomiting Genitourinary: See HPI Musculoskeletal: see HPI, back pain Skin: no symptoms reported Psychiatric/Neurological: No Symptoms Reported Endocrine: No Symptoms Reported Past Nzcrpig-Giixof-Oqlvla Hx Past Med/Social Hx: Reviewed Nursing Past Med/Soc Hx Patient Social History 2nd Hand Smoke Exposure: No Recent Foreign Travel: No Contact w/Someone Who Travel: No Recent Hopitalizations: No Immunizations Up To Date Tetanus Booster (TDap): Unknown PED Vaccines UTD: No Date of Pneumonia Vaccine: Mar 01, 2013 Date of Influenza Vaccine: Mar 16, 2017 Seasonal Allergies Seasonal Allergies: Yes (MILD) Past Medical History Surgeries: Yes (breast reduction;several cysto's with UD;lap gaby;LITHOTRIPSY/KIDNEY ST) Abdominal, Appendectomy, Bladder Surgery, Breast, Gallbladder, Hysterectomy, Oophorectomy, Renal, Tonsillectomy, Tubal Ligation Respiratory: Yes (MILD ASTHMA RELATED TO SEASONAL ALLERGIES) Asthma, Pneumonia, Chronic Bronchitis, Sleep Apnea Currently Using CPAP: Yes Currently Using BIPAP: No Cardiac: Yes (TACHYCARDIA) High Cholesterol, Hypertension, Irregular Heartbeat Neurological: Yes (LAST SEIZURE 07/2017) Headaches /Migraines, Seizure Disorder Reproductive Disorders: Yes 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 Problems, 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 History: Hysterectomy, Menopausal Sexually Transmitted Disease: No HIV/AIDS: No Genitourinary: Yes (INCONTINENCE;LITHOTRIPSY/KIDNEY STONE REMOVAL) Bladder Infection, Kidney Stones, Renal Failure, UTI-Chronic Gastrointestinal: Yes (S/P HIATAL HERNIA REPAIR) Gastroesophageal Reflux, Pancreatitis, Chronic Diarrhea, Hiatal Hernia, Irritable Bowel Musculoskeletal: Yes Fibromyalgia, Chronic Back Pain Endocrine: No HEENT: No Loss of Vision: Bilateral Hearing Impairment: Denies Cancer: Yes Vaginal Did You Recieve Any Treatments: Yes What Type of Treatment Did You: Surgical Intervention Psychosocial: Yes (EXTENSIVE PSYCH ISSUES) Anxiety, Depression Integumentary: No Blood Disorders: No Adverse Reaction/Blood Tranf: No (HAS HAD BLOOD WITH NO REACTION) Family Medical History Dementia 19 FATHER Family history: Cardiovascular disease 19 FATHER Family history: Diabetes mellitus G8 SISTER Family history: Hypertension 19 FATHER 19 MOTHER History of - respiratory disease 19 MOTHER Seizure disorder G8 SISTER No Family History of: Abdominal aortic aneurysm Anson's disease Alcoholism Aphasia Cancer Cancer of colon Cataract Chest pain Congenital heart disease Congestive heart failure Cystic fibrosis Family history: Osteoporosis Family history: Thyroid disorder Headache Hearing loss Heart disease Hereditary disease History of - anemia History of - disorder History of drug abuse Human immunodeficiency virus (HIV) seropositivity Hypercholesterolemia Infertile Kidney disease Malignant neoplasm of lung Myocardial infarction Parkinson's disease Prostate cancer Psychotic disorder Stroke Tuberculosis Visual impairment Heart Disease, Diabetes, Hypertension, Lung Disease, Seizures PSH: -CHOLECYSTECTOMY -APPENDECTOMY -LAP GABY FUNDOPLICATION -BILATERAL TUBAL LIGATION -LAPAROSCOPIES FOR OVARIAN CYSTS -HYSTERECTOMY/BILATERAL SALPINGO-OOPHORECTOMY -CYSTOSCOPIES AND URETHRAL DILATIONS -LITHOTRIPSY -CYSTOSCOPY WITH KIDNEY STONE REMOVAL -TONSILLECTOMY/ADENOIDECTOMY -BREAST REDUCTION Physical Exam Vital Signs Capillary Refill : Height/Weight/BMI Height: 5'1.00" Weight: 162lbs. 0.0oz. 73.787876wy; 27.62 BMI Method:Stated General Appearance: WD/WN Respiratory: chest non-tender, lungs clear Cardiovascular: normal peripheral pulses, regular rate, rhythm Gastrointestinal: non tender, soft Back: CVA tenderness (L) Neurologic/Psychiatric: alert, normal mood/affect, oriented x 3 Skin: normal color, warm/dry Progress/Results/Core Measures Results/Orders Lab Results Laboratory Tests Test 02/11/20 22:29 02/11/20 22:50 Range/Units White Blood Count 7.8 4.3-11.0 10^3/uL Red Blood Count 5.07 4.35-5.85 10^6/uL Hemoglobin 14.4 11.5-16.0 G/DL Hematocrit 43 35-52 % Mean Corpuscular Volume 84 80-99 FL Mean Corpuscular Hemoglobin 28 25-34 PG Mean Corpuscular Hemoglobin Concent 34 32-36 G/DL Red Cell Distribution Width 12.8 10.0-14.5 % Platelet Count 160 130-400 10^3/uL Mean Platelet Volume 11.5 H 7.4-10.4 FL Neutrophils (%) (Auto) 54 42-75 % Lymphocytes (%) (Auto) 36 12-44 % Monocytes (%) (Auto) 7 0-12 % Eosinophils (%) (Auto) 2 0-10 % Basophils (%) (Auto) 0 0-10 % Neutrophils # (Auto) 4.2 1.8-7.8 X 10^3 Lymphocytes # (Auto) 2.8 1.0-4.0 X 10^3 Monocytes # (Auto) 0.6 0.0-1.0 X 10^3 Eosinophils # (Auto) 0.1 0.0-0.3 10^3/uL Basophils # (Auto) 0.0 0.0-0.1 10^3/uL Sodium Level 138 135-145 MMOL/L Potassium Level 4.6 3.6-5.0 MMOL/L Chloride Level 105 98-107 MMOL/L Carbon Dioxide Level 18 L 21-32 MMOL/L Anion Gap 15 H 5-14 MMOL/L Blood Urea Nitrogen 14 7-18 MG/DL Creatinine 1.01 0.60-1.30 MG/DL Estimat Glomerular Filtration Rate 58 BUN/Creatinine Ratio 14 Glucose Level 113 H 70-105 MG/DL Calcium Level 9.3 8.5-10.1 MG/DL Corrected Calcium 9.0 8.5-10.1 MG/DL Total Bilirubin 0.2 0.1-1.0 MG/DL Aspartate Amino Transf (AST/SGOT) 23 5-34 U/L Alanine Aminotransferase (ALT/SGPT) 26 0-55 U/L Alkaline Phosphatase 56 40-136 U/L Total Protein 7.6 6.4-8.2 GM/DL Albumin 4.4 3.2-4.5 GM/DL Urine Color YELLOW Urine Clarity CLOUDY Urine pH 6.0 5-9 Urine Specific [place] 1.025 H 1.016-1.022 Urine Protein 2+ H NEGATIVE Urine Glucose (UA) NEGATIVE NEGATIVE Urine Ketones TRACE H NEGATIVE Urine Nitrite NEGATIVE NEGATIVE Urine Bilirubin NEGATIVE NEGATIVE Urine Urobilinogen 0.2 < = 1.0 MG/DL Urine Leukocyte Esterase NEGATIVE NEGATIVE Urine RBC (Auto) 3+ H NEGATIVE Urine RBC >100 H /HPF Urine WBC RARE /HPF Urine Crystals PRESENT H /LPF Urine Calcium Oxalate Crystals FEW H /LPF Urine Bacteria TRACE /HPF Urine Casts NONE /LPF Urine Mucus NEGATIVE /LPF Urine Culture Indicated NO My Orders Orders - OLEARY,RANCHO L DO Cbc With Automated Diff (02/11/20 22:17) Comprehensive Metabolic Panel (02/11/20 22:17) Ua Culture If Indicated (02/11/20 22:17) Metoclopramide Injection (Reglan Injecti (02/11/20 22:17) Ns Iv 1000 Ml (Sodium Chloride 0.9%) (02/11/20 22:17) Abdomen/Kub 1view (02/11/20 22:44) Promethazine Injection (Phenergan Injec (02/11/20 23:24) Fentanyl Injection (Sublimaze Injection (02/12/20 00:13) Promethazine Injection (Phenergan Injec (02/12/20 00:15) Progress Progress Note : Time: 00:17 Progress Note Patient likely still having pain from her lithotripsy and kidney stones. Patient has significant blood in her urine. She was offered a have a repeat CT but declined. Patient is continually requesting pain medication. Patient has OxyContin at home. Told her I would give her one dose of fentanyl at another Phenergan and she will be discharged home. She has significant allergy list to codeines, Toradol, Zofran, hydrocodone so very limited on medication a vailability. She will be discharged home and should follow-up with Dr. Escobedo on Thursday. Departure Impression Primary Impression: Renal colic on left side Disposition: HOME, SELF-CARE Condition: Stable Departure-Patient Inst. Referrals: SABIHA MAST MD (PCP/Family) Primary Care Physician Patient Instructions: Renal Colic Add. Discharge Instructions: Call Dr. Howell's office first thing Thursday morning, take your home pain medication as prescribed as needed for pain. RANCHO OLEARY DO Feb 11, 2020 22:12
[2020-02-11] MEDS ORDERED: METOCLOPRAMIDE INJ 10 MG/2 ML (REGLAN) IVP STA (22:17)
[2020-02-11] MEDS ORDERED: NS IV 1000 ML 1,000 ML IV STA (22:17)
[2020-02-11 22:42] LABS: BASOPHILS % (AUTO) 0 % (0-10); EOSINOPHILS # (AUTO) 0.1 10^3/uL (0.0-0.3); EOSINOPHILS % (AUTO) 2 % (0-10); HEMATOCRIT 43 % (35-52); HEMOGLOBIN 14.4 G/DL (11.5-16.0); LYMPHOCYTES # (AUTO) 2.8 X 10^3 (1.0-4.0); LYMPHOCYTES % (AUTO) 36 % (12-44); MEAN CORPUSCULAR HEMOGLOBIN 28 PG (25-34); MEAN CORPUSCULAR HGB CONC 34 G/DL (32-36); MEAN CORPUSCULAR VOLUME 84 FL (80-99); MEAN PLATELET VOLUME 11.5 FL (7.4-10.4); MONOCYTES # (AUTO) 0.6 X 10^3 (0.0-1.0); MONOCYTES % (AUTO) 7 % (0-12); NEUTROPHILS # (AUTO) 4.2 X 10^3 (1.8-7.8); NEUTROPHILS % (AUTO) 54 % (42-75); PLATELET COUNT 160 10^3/uL (130-400); WHITE BLOOD COUNT 7.8 10^3/uL (4.3-11.0)
[2020-02-11] MEDS ORDERED: PROMETHAZINE INJ 25 MG/ML (PHENERGAN) AMP IVP STA (23:24)
[2020-02-11 23:26] LABS: BILIRUBIN,URINE NEGATIVE (NEGATIVE); CLARITY,URINE CLOUDY; COLOR,URINE YELLOW; GLUCOSE, URINE (UA) NEGATIVE (NEGATIVE); KETONES,URINE TRACE (NEGATIVE); LEUKOCYTE ESTERASE ,URINE NEGATIVE (NEGATIVE); NITRITE,URINE NEGATIVE (NEGATIVE); PROTEIN,URINE 2+ (NEGATIVE)
[2020-02-11 23:27] LABS: ALBUMIN 4.4 GM/DL (3.2-4.5); POTASSIUM 4.6 MMOL/L (3.6-5.0)
[2020-02-11 23:29] LABS: CALCIUM 9.3 MG/DL (8.5-10.1)
[2020-02-11 23:30] LABS: TOTAL PROTEIN 7.6 GM/DL (6.4-8.2)
[2020-02-11 23:32] LABS: BILIRUBIN,TOTAL 0.2 MG/DL (0.1-1.0)
[2020-02-11 23:33] LABS: CREATININE SERUM 1.01 MG/DL (0.60-1.30)
[2020-02-11 23:37] LABS: RBC,URINE >100 /HPF
[2020-02-11 23:38] LABS: BACTERIA,URINE TRACE /HPF; WBC,URINE RARE /HPF
[2020-02-11 23:39] LABS: CALCIUM OXALATE CRYSTALS,UR FEW /LPF
[2020-02-12] MEDS ORDERED: fentaNYL INJECTION 100 MCG/2 ML AMP IVP STA (00:13)
[2020-02-12] MEDS ORDERED: PROMETHAZINE INJ 25 MG/ML (PHENERGAN) AMP IVP STA (00:15)
[2020-02-12 00:57] VITALS: BP 154/103
--- NOTE | 2020-02-12 07:46 | Diagnostic Imaging Report ---
EXAMINATION: Abdomen 1 view HISTORY: abdomen pain COMPARISON: 02/08/2020 FINDINGS: No dilated bowel is seen. Surgical clips are seen in the left pelvis and right upper quadrant. There is an unchanged calcification projecting over the right kidney measuring 2 mm. Previously seen stones projecting over the left kidney are absent. IMPRESSION: 1. Stable 3 mm calcification projecting over the right kidney likely representing stone. Dictated on workstation # [id number]
== END 2020-02-12 00:57 | disposition home or self-care (01) ==
LOC: EDUNIT# 21:52 → ER 21:54
DX: N20.0 Calculus of kidney (principal); E78.00 Pure hypercholesterolemia, unspecified; I10 Essential (primary) hypertension; F41.9 Anxiety disorder, unspecified; F32.9 Major depressive disorder, single episode, unspecified; N19 Unspecified kidney failure; G89.29 Other chronic pain; J45.909 Unspecified asthma, uncomplicated; M54.9 Dorsalgia, unspecified; Z88.2 Allergy status to sulfonamides; Z88.5 Allergy status to narcotic agent; Z88.6 Allergy status to analgesic agent; Z88.8 Allergy status to other drugs, medicaments and biological substances; Z88.1 Allergy status to other antibiotic agents; Z85.44 Personal history of malignant neoplasm of other female genital organs; Z82.49 Family history of ischemic heart disease and other diseases of the circulatory system; Z79.891 Long term (current) use of opiate analgesic
CPT/HCPCS: 36415; 74018; 80053; 81000; 85025

== ENCOUNTER → 2020-02-29 | Outpatient (CLI) | payer MEDICARE ==
--- NOTE | 2020-02-29 16:24 | Diagnostic Imaging Report ---
EXAMINATION: Abdomen, 1 view. HISTORY: Left renal stone. COMPARISON: 02/11/2020. FINDINGS: There is an unchanged 3 mm calcification projecting over the lower pole of the right kidney. Cholecystectomy clips are seen. Surgical clips are seen in the left aspect of the pelvis. No left-sided renal stones are seen. No dilated bowel. IMPRESSION: Stable 3 mm calcification projecting over the lower pole of the right kidney. Dictated by: Dictated on workstation # [id number]
== END ==
LOC: RAD 14:28
PROVIDERS: ATTEND Urology
DX: N28.89 Other specified disorders of kidney and ureter (principal); N20.0 Calculus of kidney
CPT/HCPCS: 74018

== ENCOUNTER → 2020-09-03 | Outpatient (CLI) | payer MEDICARE, OTHER ==
[~2020-09-03] MED LIST changes: -CIPR500T4 PO; +CIPR500T5 PO; -OXYC-471 PO; +OXYC1TAB11 PO; +QUET300T19 PO; -QUET300T44 PO
--- NOTE | 2020-09-03 10:47 | Diagnostic Imaging Report ---
TECHNIQUE: Multiplanar multisequence MRI of the thoracic spine was performed without contrast. REASON FOR THE EXAM: Chronic back pain. COMPARISON: 01/01/2020. FINDINGS: No acute fracture or dislocation is seen in the thoracic spine. The alignment of the thoracic spine is unremarkable. The vertebral body heights are maintained. Small Schmorl's nodes are noted in the lower thoracic spine. No focal osseous lesions are seen. The thoracic spinal cord demonstrates normal intrinsic signal. No evidence of cord expansion. No epidural collections are seen. No significant spinal canal or foraminal stenosis is seen in the thoracic spine. The paraspinal soft tissues of the thoracic spine are unremarkable. The included lungs are clear. IMPRESSION: 1. No acute fracture or dislocation in the thoracic spine. 2. No significant degenerative changes in the thoracic spine. No high-grade spinal canal or foraminal stenosis. Dictated by: Dictated on workstation # [id number]
--- NOTE | 2020-09-03 11:07 | Diagnostic Imaging Report ---
PROCEDURE: MRI lumbar spine without contrast. TECHNIQUE: Multiplanar, multisequence MRI of the lumbar spine was performed without contrast. INDICATION: Chronic back pain. COMPARISON: None. FINDINGS: 5 lumbar type vertebral bodies are visualized with the last well-formed disc space designated L5-S1. No acute fracture or dislocation is seen in the lumbar spine. Alignment is anatomic. Vertebral body heights and disc spaces are well-maintained. The bone marrow signal is normal. The conus terminates at the L1 level. No masses are seen associated with the conus or nerve roots of the cauda equina. No epidural collections are identified. Degenerative changes are as follows: T12-L1: No significant spinal canal or foraminal stenosis. L1-L2: Disc desiccation, facet hypertrophy, and buckling of the ligamentum flavum results in mild spinal canal narrowing and no significant foraminal narrowing. L2-L3: Disc desiccation, facet hypertrophy, and buckling of the ligamentum flavum results in mild spinal canal narrowing and no significant foraminal narrowing. L3-L4: No significant spinal canal or foraminal stenosis. L4-L5: Facet hypertrophy and buckling of the ligamentum flavum results in no significant spinal canal stenosis and no right and mild left foraminal narrowing. L5-S1: No significant spinal canal or foraminal narrowing. Paravertebral soft tissues are unremarkable. IMPRESSION: 1. No acute fracture or dislocation in the lumbar spine. 2. Mild multilevel degenerative changes in the lumbar spine, greatest at L1-L2 and L2-L3. Dictated by: Dictated on workstation # [id number]
== END ==
LOC: RAD 09:34
PROVIDERS: ATTEND Physician Assistant
DX: M47.816 Spondylosis without myelopathy or radiculopathy, lumbar region (principal)
CPT/HCPCS: 72146; 72148

== ENCOUNTER → 2020-11-02 | Outpatient (CLI) | payer MEDICARE ==
[~2020-11-02] VITALS: Ht 154 cm; Wt 77.0 kg
[~2020-11-02] MED LIST changes: +REGADENOSON 0.4 MG/5 ML SYR (LEXISCAN) IV ONE
[2020-11-02] MEDS: CATHETER FLUSH 10 ML SYR IV PRN ×2 (07:54→09:03)
[2020-11-02 09:02] VITALS: BP 159/92
--- NOTE | 2020-11-05 12:17 | STRESS TEST ---
DATE OF SERVICE: 11/02/2020 RESTING AND POST REGADENOSON TECHNETIUM-99M TETROFOSMIN SPECT CT IMAGING ORDERING PHYSICIAN: Keila Berg APRN PRIMARY PHYSICIAN: Dr. Leon. CLINICAL DIAGNOSIS: Chest discomfort. Baseline images were carried out after injection of 10.33 mCi of technetium-99m Tetrofosmin. This was followed by 0.4 mg regadenoson and 31.6 mCi of technetium-99m Tetrofosmin for stress imaging. The electrocardiogram showed sinus rhythm at baseline. It did not change significantly with regadenoson infusion. Review of images at rest and following stress does not indicate any significant perfusion defects consistent with myocardial ischemia or infarction. Gated images show normal global left ventricular systolic function with normal regional wall motion. Left ventricular ejection fraction is calculated to be 75%. Left ventricular end diastolic volume is 34 mL. TID is absent (1). CONCLUSIONS: 1. No evidence of any significant myocardial ischemia or infarction on this study. 2. Normal regional wall motion. 3. Normal global left ventricular systolic function with a calculated ejection fraction of 75%. Job ID: [id number] DocumentID: [id number] Dictated Date: 11/05/2020 08:47:16 Tool Dispatcher Date: 11/05/2020 12:16:47 Dictated By: BRENNON AKTZ MD, MA, FACP, FACC,
== END ==
LOC: CARD 07:44
PROVIDERS: ATTEND Nurse Practitioner Family
DX: R07.89 Other chest pain (principal)
CPT/HCPCS: 78452; 93017; A9502

== ENCOUNTER → 2020-11-05 | Outpatient (CLI) | payer MEDICARE ==
[~2020-11-05] MED LIST changes: -REGADENOSON 0.4 MG/5 ML SYR (LEXISCAN) IV ONE
== END ==
LOC: CARD 11:00
PROVIDERS: ATTEND Nurse Practitioner Family
DX: I34.0 Nonrheumatic mitral (valve) insufficiency (principal)
CPT/HCPCS: 93225; 93226; 93306

== ENCOUNTER → 2020-11-27 | Outpatient (CLI) | payer MEDICARE ==
[~2020-11-27] MED LIST changes: +DOXY-311 PO; -DOXY100C42 PO
--- NOTE | 2020-11-27 15:21 | Diagnostic Imaging Report ---
INDICATION: Routine screening. COMPARISON: 08/03/2015 and 06/08/2013. TECHNIQUE: 2D and 3D bilateral screening mammography was performed with CAD. FINDINGS: Scattered fibroglandular densities are identified bilaterally. The parenchymal pattern is stable. No dominant mass or malignant appearing microcalcifications are seen. The axillae are unremarkable. IMPRESSION: No mammographic features suspicious for malignancy are identified. ACR BI-RADS Category 1: Negative. Result letter will be mailed to the patient. Note: At least 10% of breast cancer is not imaged by mammography. Dictated by: Dictated on workstation # [id number]
== END ==
LOC: RAD 12:45
PROVIDERS: ATTEND Surgery
DX: Z12.31 Encounter for screening mammogram for malignant neoplasm of breast (principal)
CPT/HCPCS: 77063; 77067

== ENCOUNTER 2021-06-21 05:28 | Outpatient (RCR) | payer MEDICARE ==
[~2021-06-21] VITALS: Ht 156.2 cm; Wt 74.5 kg
[~2021-06-21 05:28] MED LIST changes: +CYCL10TA25 PO; +METO100T12 PO; +PANT40TA52 PO; -QUET400T12 PO; +QUET400T13 PO; +ROPI5TAB3 PO; +SUCR1TAB PO
== END 2021-06-24 09:58 | disposition home or self-care (01) ==
LOC: PREOP 05:28
PROVIDERS: ATTEND Surgery
DX: Z01.812 Encounter for preprocedural laboratory examination (principal); K21.9 Gastro-esophageal reflux disease without esophagitis; Z20.822 Contact with and (suspected) exposure to COVID-19
CPT/HCPCS: 87635

== ENCOUNTER 2021-06-25 12:20 | Day surgery (SDC) | payer MEDICARE ==
[2021-06-25] MEDS ORDERED: LACTATED RINGERS 1,000 ML IV STA (12:26)
[2021-06-25] MEDS ORDERED: HURRICAINE EXT TUBE (BENZOCAINE) XX PRN (12:30)
[2021-06-25] MEDS ORDERED: LACTATED RINGERS 1,000 ML IV ONE (12:30)
[2021-06-25] MEDS ORDERED: fentaNYL INJ 100 MCG/2 ML AMP IV ONE (12:45)
[2021-06-25] MEDS ORDERED: fentaNYL INJ 100 MCG/2 ML AMP ONE (12:50)
[2021-06-25 12:52] VITALS: BP 129/79
[2021-06-25] MEDS ORDERED: proPOfol 200 MG/20 ML (DIPRIVAN) VIAL IV ONE (12:52)
--- NOTE | 2021-06-25 12:56 | Progress Note-Pre Operative ---
Pre-Operative Progress Note H&P Reviewed The H&P was reviewed, patient examined and no changes noted. Date Seen by Provider: Jun 25, 2021 Time Seen by Provider: 12:56 Date H&P Reviewed: Jun 25, 2021 Time H&P Reviewed: 12:56 Pre-Operative Diagnosis: epigastric abd pain, gerd NETTIE HAHN DO Jun 25, 2021 12:56
[2021-06-25 13:15] VITALS: BP 131/72
--- NOTE | 2021-06-25 13:19 | Anesthesia-General Post-Op ---
MAC Patient Condition Mental Status/LOC: Same as Preop Cardiovascular: Satisfactory Nausea/Vomiting: Absent Respiratory: Satisfactory Pain: Controlled Complications: Absent Post Op Complications Complications None Follow Up Care/Instructions Patient Instructions None needed. Anesthesiology Discharge Order Discharge Order Patient is doing well, no complaints, stable vital signs, no apparent adverse anesthesia problems. No complications reported per nursing. PRANAY FELDMAN CRNA Jun 25, 2021 13:19
[2021-06-25 13:20] VITALS: BP 112/67
--- NOTE | 2021-06-25 13:22 | Discharge Inst-Simple/Standard ---
Discharge Inst-Standard Patient Instructions/Follow Up Plan of Care/Instructions/FU: 2 weeks Andrews Activity as Tolerated: Yes Discharge Diet: Regular Diet NETTIE HAHN DO Jun 25, 2021 13:22
--- NOTE | 2021-06-25 13:23 | Progress Note-Post Operative ---
Post-Operative Progess Note Surgeon (s)/Inside Solar Sales Consultant (s) Surgeon NETTIE HAHN DO Inside Solar Sales Consultant: na Pre-Operative Diagnosis epigastric abd pain, gerd Post-Operative Diagnosis slight gastritis Procedure & Operative Findings Date of Procedure 06/25/21 Procedure Performed/Findings egd c biopsies Anesthesia Type per education analyst Estimated Blood Loss Estimated blood loss (mL): none Specimens/Packing Specimens Removed antrum, ge NETTIE HAHN DO Jun 25, 2021 13:23
[2021-06-25 13:25] VITALS: BP 112/67
[2021-06-25 13:41] VITALS: BP 115/69
--- NOTE | 2021-06-25 18:37 | OPERATIVE REPORT ---
DATE OF SERVICE: 06/25/2021 PREOPERATIVE DIAGNOSES: Epigastric abdominal pain and gastroesophageal reflux disease. POSTOPERATIVE DIAGNOSES: Slight gastritis. SURGEON: Nettie Sparrow DO ANESTHESIA: Per GENERAL CARGO CLERK. PROCEDURES PERFORMED: EGD with biopsies. INDICATIONS FOR PROCEDURE: The patient is a 51-year-old female with epigastric abdominal pain and GERD symptoms. She understands the risks and benefits of the procedure and wishes to proceed. Consent was signed in the chart. DESCRIPTION OF PROCEDURE: The patient was taken to the endoscopy suite and placed in a left lateral recumbent position. A timeout was performed. Scope was inserted in the mouth, down the esophagus, stomach and into the duodenum without difficulty. There were no polyps, masses or ulcerations within the duodenum. Scope was slowly retracted back into the stomach, where it was further insufflated. Slight gastritis was present in the antrum. Biopsies of the antrum were obtained. Scope was retroflexed noting evidence of previous fundoplication, no polyps, masses or ulcerations. Scope was returned to its normal position, slowly withdrawn to the distal esophagus. Biopsy of the GE junction was obtained. No polyps, masses or ulcerations. Scope was slowly retracted back until completely removed. The patient tolerated the procedure well without any complications. She was taken to the recovery room in a stable condition. RECOMMENDATIONS: The patient will continue on current medication. We will consider starting on Carafate if symptoms do not improve and depending upon pathology. The patient will follow up in the office in two weeks. Job ID: [id number] DocumentID: [id number] Dictated Date: 06/25/2021 13:25:29 Bender Hand Date: 06/25/2021 18:36:46 Dictated By: NETTIE SPARROW DO
== END 2021-06-25 13:53 | disposition home or self-care (01) ==
LOC: ENDO 12:20
PROVIDERS: ATTEND Surgery
DX: K29.50 Unspecified chronic gastritis without bleeding (principal); K21.9 Gastro-esophageal reflux disease without esophagitis; I10 Essential (primary) hypertension; E78.5 Hyperlipidemia, unspecified; G40.909 Epilepsy, unspecified, not intractable, without status epilepticus; J45.909 Unspecified asthma, uncomplicated; G47.33 Obstructive sleep apnea (adult) (pediatric); E66.9 Obesity, unspecified; Z68.30 Body mass index [BMI] 30.0-30.9, adult; F32.A Depression, unspecified; F41.9 Anxiety disorder, unspecified; Z79.899 Other long term (current) drug therapy; Z88.6 Allergy status to analgesic agent; Z88.8 Allergy status to other drugs, medicaments and biological substances; Z99.89 Dependence on other enabling machines and devices; Z85.43 Personal history of malignant neoplasm of ovary; Z85.44 Personal history of malignant neoplasm of other female genital organs
CPT/HCPCS: 88305

== ENCOUNTER → 2021-12-30 | Outpatient (CLI) | payer MEDICARE ==
--- NOTE | 2021-12-30 17:02 | Diagnostic Imaging Report ---
PROCEDURE: CT urinary tract, rule out kidney stone. TECHNIQUE: Multiple contiguous axial images were obtained through the abdomen and pelvis without the use of intravenous contrast. Auto Exposure Controls were utilized during the CT exam to meet ALARA standards for radiation dose reduction. DATE: December 30, 2021. COMPARISON: KUB February 29, 2020. CT chest, abdomen and pelvis January 01, 2020. INDICATION: 51-year-old female, right-sided abdominal pain. History of renal stone passage one week ago. FINDINGS: There are limitations for evaluation of the abdominal organs, neoplastic processes, abscess, and limited evaluation of the vasculature relating to the lack of intravenous contrast. There are linear opacities in left lower lobe and right lower lobe likely relating to atelectasis and/or scarring. The heart is not enlarged. There is no pericardial effusion. The liver is unremarkable in size and contour. The gallbladder is surgically absent. There is no intrahepatic or extrahepatic bile duct dilation. The main pancreatic duct is not abnormally dilated. Limited noncontrast assessment of the renal parenchyma is unremarkable. The spleen is normal in size. The adrenal glands are unremarkable. There is a 4 mm nonobstructing right renal stone on axial image 62. There is a 2 mm nonobstructing right renal stone on axial image 56. There is a stone in the right renal pelvis on axial image 70 which measures 11 mm in size. This stone is a change since prior CT exam on January 01, 2020. There is no identified additional stone in the more distal aspect of the right ureter. There is no right hydronephrosis. There is a 5 mm nonobstructing left renal stone on axial image 73 and a 2 mm nonobstructing left renal stone on axial image 72 as well as 3 mm nonobstructing left renal stone on axial image 69. There is no left hydronephrosis. There is no identified left ureteral stone. Urinary bladder is unremarkable. Uterus is not seen and may be surgically absent. The intestinal tract is not distended. There is no evidence to suggest acute appendicitis. There is no free intraperitoneal air. There is no drainable fluid collection. There is no free fluid in the abdomen or pelvis. There is no identified abnormally enlarged lymph node in the abdomen or pelvis which meets CT size criteria for adenopathy. There is no identified acute bony abnormality. IMPRESSION: CT ABDOMEN AND PELVIS. 1. 11 mm stone in the right renal pelvis without right hydronephrosis. This particular stent is an interval change since January 01, 2020. Additional nonobstructing renal stones bilaterally. No identified more distally located stone in either ureter. 2. No otherwise identified potential acute abnormality in the abdomen or pelvis. Dictated by: Dictated on workstation # [id number]
== END ==
LOC: RAD 17:00
PROVIDERS: ATTEND Nurse Practitioner Family
DX: N20.0 Calculus of kidney (principal); Z96.0 Presence of urogenital implants
CPT/HCPCS: 74176

== ENCOUNTER → 2022-01-06 | Outpatient (CLI) | payer MEDICARE ==
--- NOTE | 2022-01-06 18:00 | Diagnostic Imaging Report ---
ABDOMEN/KUB 1VIEW INDICATION: Renal stones. COMPARISON: CT abdomen and pelvis from 12/30/2021. TECHNIQUE: AP view of the abdomen. FINDINGS: The 11 mm stone in the right renal pelvis appears be in stable position. Additional bilateral smaller renal stones are not well seen by radiography. Nonobstructed bowel gas pattern. Cholecystectomy. Surgical clips in the left pelvic sidewall are stable. IMPRESSION: Stable position of 11 mm stone in the right renal pelvis. Dictated by: Dictated on workstation # [id number]
== END ==
LOC: RAD 13:09
PROVIDERS: ATTEND Urology
DX: N20.0 Calculus of kidney (principal)
CPT/HCPCS: 74018

== ENCOUNTER → 2022-01-06 | Outpatient (CLI) | payer MEDICARE | END | disposition home or self-care (01) | LOC: PREOP 14:54 | PROVIDERS: ATTEND Urology | DX: Z01.818 Encounter for other preprocedural examination (principal) ==

== ENCOUNTER 2022-01-07 06:10 | Day surgery (SDC) | payer MEDICARE ==
[2022-01-07] VITALS (11 sets, daily range): BP systolic 109–161; BP diastolic 81–103
[~2022-01-07] VITALS: Ht 157.5 cm; Wt 80.0 kg
[2022-01-07] MEDS ORDERED: CATHETER FLUSH 10 ML SYR IVP PRN (06:45)
[2022-01-07] MEDS ORDERED: cefTRIAXone 1 GM PRE-MIX 50 ML IV ONE (06:45)
[2022-01-07] MEDS: LACTATED RINGERS 1,000 ML IV SCH ×2 (07:00→10:34)
[2022-01-07] MEDS ORDERED: NS IV 1000 ML 1,000 ML IV SCH (07:15)
--- NOTE | 2022-01-07 07:19 | Progress Note-Pre Operative ---
Pre-Operative Progress Note Date of Available H&P: Jan 07, 2022 Date H&P Reviewed: Jan 07, 2022 Time H&P Reviewed: 07:18 Changes from last HP NONE Pre-Operative Diagnosis: RT RENAL STONE MARISA HOOK MD Jan 07, 2022 07:19
[2022-01-07] MEDS ORDERED: MIDAZOLAM 2 MG/2 ML (VERSED) VIAL IV ONE (07:30)
[2022-01-07] MEDS ORDERED: MIDAZOLAM 2 MG/2 ML (VERSED) VIAL ONE ×2 (07:44→09:52)
--- NOTE | 2022-01-07 08:30 | Diagnostic Imaging Report ---
INDICATION: Nephrolithiasis, preoperative extracorporeal shockwave lithotripsy evaluation. TECHNIQUE: Single supine view of the abdomen 6:33 AM CORRELATION STUDY: 01/06/2022 FINDINGS: Large amount of overlying bowel gas and stool is present obscuring detail. Previously noted calcification projected over the left renal pelvis likely present but somewhat obscured. Known smaller calcification left renal silhouette largely obscured as well. Calcification projects just below the left aspect of the sacroiliac joint is noted calcification just outside the course of the distal ureter. Multiple surgical clips are noted within the left pelvis. IMPRESSION: 1. Previously demonstrated right renal calcification as well as smaller bilateral renal stones are largely obscured by overlying bowel gas. Dictated by: Dictated on workstation # [id number]
--- NOTE | 2022-01-07 08:56 | Progress Note-Post Operative ---
Post-Operative Progess Note Surgeon (s)/Pedigree Researcher (s) Surgeon MARISA HOOK MD Pedigree Researcher: NONE Pre-Operative Diagnosis RT RENAL STONE Post-Operative Diagnosis SAME Procedure & Operative Findings Date of Procedure 01/07/22 Procedure Performed/Findings RT ESWL Anesthesia Type GENERAL Estimated Blood Loss Estimated blood loss (mL): NONE Specimens/Packing Specimens Removed NONE Packing: NONE MARISA HOOK MD Jan 07, 2022 08:56
--- NOTE | 2022-01-07 08:59 | Discharge Inst-Urology ---
Discharge Inst-Urology Reconcile Patient Problems Problems Reviewed?: Yes Final Diagnosis RT RENAL STONE Patient Instructions/Follow Up Plan/Assessment/Instructions Please make appointment to been seen in office Saturday 01/20, KUB prior to it. KUB on way home Post ESWL instructions Increase oral fluids for 48 hours and then as needed. Diet and Activity as tolerated. If questions or concerns contact your physician Or seek help at emergency department. MARISA HOOK MD Jan 07, 2022 08:59
[2022-01-07] MEDS ORDERED: fentaNYL INJ 100 MCG/2 ML AMP ONE (09:52)
[2022-01-07] MEDS ORDERED: LIDOCAINE PF 2% 5 ML (XYLOCAINE) VIAL ONE (09:52)
[2022-01-07] MEDS ORDERED: proPOfol 200 MG/20 ML (DIPRIVAN) VIAL IV ONE (09:52)
[2022-01-07] MEDS ORDERED: FUROSEMIDE 40 MG/4 ML INJ (LASIX) ONE (10:31)
[2022-01-07] MEDS ORDERED: SEVOFLURANE (ULTANE) 15 ML INHAL SOLN ONE (10:38)
[2022-01-07] MEDS ORDERED: PROMETHAZINE INJ 25 MG/ML (PHENERGAN) AMP IVP ONE (11:00)
[2022-01-07] MEDS ORDERED: fentaNYL INJ 100 MCG/2 ML AMP IVP ONE (11:00)
[2022-01-07] MEDS ORDERED: TMSL.4C PO (11:53)
[2022-01-07] MEDS ORDERED: OXYC1TAB11 PO (11:53)
[2022-01-07] MEDS ORDERED: CEFD300C3 PO (11:53)
[2022-01-07] MEDS ORDERED: oxyCODONE/APAP 5/325MG (PERCOCET 5) TABLET ONE (11:58)
[2022-01-07] MEDS ORDERED: oxyCODONE/APAP 5/325MG (PERCOCET 5) TABLET PO ONE (12:00)
--- NOTE | 2022-01-07 12:48 | Diagnostic Imaging Report ---
ABDOMEN/KUB 1VIEW INDICATION: Status post lithotripsy. COMPARISON: Earlier same day. TECHNIQUE: AP view of the abdomen. FINDINGS: The previously noted 11 mm mineralization in the region of the renal hilum cannot be seen and this may have resolved via lithotripsy or is obscured by overlying bowel gas. Surgical clips in the left hemipelvis are unchanged. Nonobstructive bowel gas pattern. Large volume of colonic stool. IMPRESSION: Again, the right renal stone is not seen radiographically and could resolved with lithotripsy or is obscured by overlying bowel gas. Dictated by: Dictated on workstation # [id number]
--- NOTE | 2022-01-07 13:12 | Anesthesia-General Post-Op ---
General Patient Condition Mental Status/LOC: Same as Preop Cardiovascular: Satisfactory Nausea/Vomiting: Absent Respiratory: Satisfactory Pain: Controlled Complications: Absent Post Op Complications Complications None Follow Up Care/Instructions Patient Instructions None needed. Anesthesia/Patient Condition Patient Condition Patient was doing well after the procedure with no complaints, stable vital signs, no apparent adverse anesthesia problems. No complications reported per nursing. MELITON RICH DO Jan 07, 2022 13:12
--- NOTE | 2022-01-07 15:20 | OPERATIVE REPORT ---
DATE OF SERVICE: 01/07/2022 PREOPERATIVE DIAGNOSIS: Right proximal ureteral stone. POSTOPERATIVE DIAGNOSIS: Right proximal ureteral stone. OPERATION PERFORMED: Right ESWL. SURGEON: Eber Hook MD ANESTHESIA: General. COMPLICATIONS: None. DESCRIPTION OF PROCEDURE: Under satisfactory general anesthesia, the patient in supine position on the ESWL table, the right proximal ureteral stone was localized. Shocks were delivered at kV of 6, a total of 2500 shocks completely fragmented the stone that was not visualized. The patient received 40 mg of Lasix, no Toradol since she is allergic to it. She tolerated the procedure and anesthesia well and was sent to recovery room in stable condition. CC: Dr. Brooks - requested, unable to deliver. Job ID: [id number] DocumentID: [id number] Dictated Date: 01/07/2022 10:48:00 Long Term Acute Care Registered Nurse Date: 01/07/2022 15:19:42 Dictated By: EBER HOOK MD
== END 2022-01-07 12:43 | disposition home or self-care (01) ==
LOC: SDC 06:10
PROVIDERS: ATTEND Urology
DX: N20.1 Calculus of ureter (principal); Z88.6 Allergy status to analgesic agent; Z88.2 Allergy status to sulfonamides
CPT/HCPCS: 74018; 87081

== ENCOUNTER 2022-01-15 17:19 | Observation (INO) | payer MEDICARE ==
[2022-01-15] VITALS (8 sets, daily range): BP systolic 125–180; BP diastolic 79–130
[~2022-01-15] VITALS: Ht 157.8 cm; Wt 79.0 kg
--- NOTE | 2022-01-15 17:34 | ED Chest Pain ---
General Stated Complaint: CP, Source: patient Exam Limitations: no limitations History of Present Illness Date Seen by Provider: Jan 15, 2022 Time Seen by Provider: 17:32 Initial Comments Patient is a 51-year-old female with a history of hypertension, high cholesterol, asthma presents ED with left-sided chest pain. Chest pain started 3 weeks ago. Described as sharp located below her left breast. Intermittent pain that does have some radiation to the back. Pain appear to be worse with exertion today. Associated shortness of breath nausea without vomiting. Denies history of similar type pain. No known history of coronary artery disease, CHF. Denies any cough, fever, vomiting, diarrhea. History of appendectomy, cholecystectomy, hysterectomy. No worsening pain with eating. Allergies and Home Medications Allergies Coded Allergies: Sulfa (Sulfonamide Antibiotics) (Verified Allergy, Unknown, 02/08/20) famotidine (Verified Allergy, Unknown, dry heaves, 02/08/20) hydrocodone (Verified Allergy, Unknown, itching. Pt has received hydromorphone w/o issue, 02/07/20) NOTE: Patient has taken Percocet and Lortab as home meds as recent as 12/25/17 ketorolac (Unverified Allergy, Unknown, 02/07/20) ketorolac tromethamine (Verified Allergy, Unknown, 02/07/20) levofloxacin (Unverified Allergy, Unknown, 02/07/20) GIVES HER THRUSH nitrofurantoin (Unverified Allergy, Unknown, 02/07/20) ondansetron (Verified Allergy, Unknown, 02/07/20) tramadol (Unverified Allergy, Unknown, 02/07/20) codeine (Unverified Adverse Reaction, Unknown, 02/07/20) Patient Home Medication List Home Medication List Reviewed: Yes Alprazolam (Alprazolam) 1 Mg Tablet, 2 MG PO HS, (Reported) Entered as Reported by: ANEL RICH on 10/21/17 1220 Amlodipine Besylate (Amlodipine Besylate) 2.5 Mg Tablet, 2.5 MG PO DAILY, (Reported) Entered as Reported by: ANEL RICH on 10/21/17 1220 Cefdinir (Cefdinir) 300 Mg Capsule, 300 MG PO BID Prescribed by: KELY WIGGINS on 01/07/22 1153 Gabapentin (Gabapentin) 800 Mg Tablet, 900 MG PO DAILY, (Reported) Entered as Reported by: SHAQUILLE FULTON on 06/20/21 1048 Metoprolol Tartrate (Metoprolol Tartrate) 100 Mg Tablet, 100 MG PO BID, (Reported) Entered as Reported by: SHAQUILLE FULTON on 06/20/21 1048 Naproxen Sodium (Aleve) 220 Mg Tablet, 220 MG PO, (Reported) Entered as Reported by: BILLIE HULL on 01/04/20 0635 Oxycodone HCl/Acetaminophen (Oxycodone-Acetaminophen 5-325) 5 Mg-325 Mg Tablet, 1 EACH PO Q6H PRN for PAIN-SEVERE Prescribed by: KELY WIGGINS on 01/07/22 115 Pantoprazole Sodium (Pantoprazole Sodium) 40 Mg Tablet.dr, 40 MG PO DAILY, (Reported) Entered as Reported by: SHAQUILLE FULTON on 06/20/21 104 Quetiapine Fumarate (Quetiapine Fumarate) 300 Mg Tablet, 300 MG PO DAILY, (Reported) Entered as Reported by: SHAQUILLE FULTON on 06/20/21 104 Ropinirole HCl (Ropinirole HCl) 5 Mg Tablet, 5 MG PO HS, (Reported) Entered as Reported by: SHAQUILLE FULTON on 06/20/21 104 Sucralfate (Sucralfate) 1 Gm Tablet, 1 GM PO UD, (Reported) Entered as Reported by: SHAQUILLE FULTON on 06/20/21 1048 Tamsulosin HCl (Flomax) 0.4 Mg Cap, 0.4 MG PO DAILY Prescribed by: BILLIE HULL on 02/08/20 0931 Tamsulosin HCl (Flomax) 0.4 Mg Cap, 0.4 MG PO DAILY Prescribed by: KELY WIGGINS on 01/07/22 1153 Trazodone HCl (Trazodone HCl) 150 Mg Tablet, 150 MG PO HS, (Reported) Entered as Reported by: SHAQUILLE FULTON on 06/20/21 104 Review of Systems Review of Systems Constitutional: No chills, No diaphoresis, No malaise, No weakness EENTM: No Eye Pain Respiratory: Denies Cough Cardiovascular: Chest Pain Gastrointestinal: Denies Abdominal Pain, Denies Diarrhea; Nausea; Denies Vomiting Genitourinary: Denies Burning, Denies Discharge Musculoskeletal: No back pain, No joint pain Skin: No change in color, No change in hair/nails All Other Systems Reviewed Negative Unless Noted: Yes Past Oqbojch-Qsfpso-Okexpq Hx Immunizations Up To Date Tetanus Booster (TDap): Unknown PED Vaccines UTD: No First/Initial COVID19 Vaccinat: NOVEMBER 2020 Second COVID19 Vaccination Iglesia: NOVEMBER 2020 Seasonal Allergies Seasonal Allergies: Yes (MILD) Past Medical History Surgeries: Yes (breast reduction;several cysto's with UD;lap gaby;LITHOTRIPSY/KIDNEY ST) Abdominal, Appendectomy, Bladder Surgery, Breast, Gallbladder, Hysterectomy, Oophorectomy, Renal, Tonsillectomy, Tubal Ligation Respiratory: Yes (MILD ASTHMA RELATED TO SEASONAL ALLERGIES) Asthma, Pneumonia, Chronic Bronchitis, Sleep Apnea Currently Using CPAP: Yes Currently Using BIPAP: No Cardiac: Yes (TACHYCARDIA) High Cholesterol, Hypertension, Irregular Heartbeat Neurological: Yes (LAST SEIZURE 07/2017) Headaches /Migraines, Seizure Disorder Reproductive Disorders: Yes 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 Problems, 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, 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 Sexually Transmitted Disease: No HIV/AIDS: No Genitourinary: Yes (INCONTINENCE;LITHOTRIPSY/KIDNEY STONE REMOVAL) Bladder Infection, Kidney Stones, Renal Failure, UTI-Chronic Gastrointestinal: Yes (S/P HIATAL HERNIA REPAIR) Gastroesophageal Reflux, Pancreatitis, Chronic Diarrhea, Hiatal Hernia, Irritable Bowel Musculoskeletal: Yes Fibromyalgia, Chronic Back Pain Endocrine: No HEENT: No Loss of Vision: Bilateral Hearing Impairment: Denies Cancer: Yes Vaginal Did You Recieve Any Treatments: Yes What Type of Treatment Did You: Surgical Intervention Psychosocial: Yes (EXTENSIVE PSYCH ISSUES) Anxiety, Depression Integumentary: No Blood Disorders: No Adverse Reaction/Blood Tranf: No (HAS HAD BLOOD WITH NO REACTION) Family Medical History Dementia 19 FATHER Family history: Cardiovascular disease 19 FATHER Family history: Diabetes mellitus G8 SISTER Family history: Hypertension 19 FATHER 19 MOTHER History of - respiratory disease 19 MOTHER Seizure disorder G8 SISTER No Family History of: Abdominal aortic aneurysm Jatinder's disease Alcoholism Aphasia Cancer Cancer of colon Cataract Chest pain Congenital heart disease Congestive heart failure Cystic fibrosis Family history: Osteoporosis Family history: Thyroid disorder Headache Hearing loss Heart disease Hereditary disease History of - anemia History of - disorder History of drug abuse Human immunodeficiency virus (HIV) seropositivity Hypercholesterolemia Infertile Kidney disease Malignant neoplasm of lung Myocardial infarction Parkinson's disease Prostate cancer Psychotic disorder Stroke Tuberculosis Visual impairment Heart Disease, Diabetes, Hypertension, Lung Disease, Seizures PSH: -CHOLECYSTECTOMY -APPENDECTOMY -LAP GABY FUNDOPLICATION -BILATERAL TUBAL LIGATION -LAPAROSCOPIES FOR OVARIAN CYSTS -HYSTERECTOMY/BILATERAL SALPINGO-OOPHORECTOMY -CYSTOSCOPIES AND URETHRAL DILATIONS -LITHOTRIPSY -CYSTOSCOPY WITH KIDNEY STONE REMOVAL -TONSILLECTOMY/ADENOIDECTOMY -BREAST REDUCTION Physical Exam Vital Signs Vital Signs - First Documented 01/15/22 17:22 Temp 36.5 Pulse 86 Resp 17 B/P (MAP) 180/105 (130) Pulse Ox 94 O2 Delivery Room Air Capillary Refill : Height, Weight, BMI Height: 5'1.00" Weight: 162lbs. 0.0oz. 73.598241tr; 32.24 BMI Method:Stated General Appearance: No Apparent Distress, WD/WN HEENT: PERRL/EOMI, TMs Normal, Normal ENT Inspection, Pharynx Normal Neck: Full Range of Motion, Normal Inspection, Non Tender, Supple Respiratory: Chest Non Tender, Lungs Clear, Normal Breath Sounds, No Accessory Muscle Use Cardiovascular: Regular Rate, Rhythm, No Edema, No Gallop, No JVD Gastrointestinal: Normal Bowel Sounds, No Organomegaly, No Pulsatile Mass, Non Tender Extremity: Normal Capillary Refill, Normal Inspection, Normal Range of Motion, Non Tender Neurologic/Psychiatric: Alert, Oriented x3, No Motor/Sensory Deficits, Normal Mood/Affect Skin: Normal Color, Warm/Dry Progress/Results/Core Measures Results/Orders Lab Results Laboratory Tests Test 01/15/22 18:00 01/15/22 19:19 Range/Units White Blood Count 5.0 4.3-11.0 10^3/uL Red Blood Count 4.59 3.80-5.11 10^6/uL Hemoglobin 12.8 11.5-16.0 g/dL Hematocrit 40 35-52 % Mean Corpuscular Volume 86 80-99 fL Mean Corpuscular Hemoglobin 28 25-34 pg Mean Corpuscular Hemoglobin Concent 32 32-36 g/dL Red Cell Distribution Width 12.6 10.0-14.5 % Platelet Count 163 130-400 10^3/uL Mean Platelet Volume 11.4 9.0-12.2 fL Immature Granulocyte % (Auto) 0 % Neutrophils (%) (Auto) 53 42-75 % Lymphocytes (%) (Auto) 35 12-44 % Monocytes (%) (Auto) 8 0-12 % Eosinophils (%) (Auto) 3 0-10 % Basophils (%) (Auto) 1 0-10 % Neutrophils # (Auto) 2.7 1.8-7.8 10^3/uL Lymphocytes # (Auto) 1.7 1.0-4.0 10^3/uL Monocytes # (Auto) 0.4 0.0-1.0 10^3/uL Eosinophils # (Auto) 0.2 0.0-0.3 10^3/uL Basophils # (Auto) 0.0 0.0-0.1 10^3/uL Immature Granulocyte # (Auto) 0.0 0.0-0.1 10^3/uL Prothrombin Time 13.7 12.2-14.7 SEC INR Comment 1.0 0.8-1.4 Activated Partial Thromboplast Time 30 24-35 SEC D-Dimer <= 0.27 0.00-0.49 UG/ML Sodium Level 140 135-145 MMOL/L Potassium Level 3.7 3.6-5.0 MMOL/L Chloride Level 107 98-107 MMOL/L Carbon Dioxide Level 23 21-32 MMOL/L Anion Gap 10 5-14 MMOL/L Blood Urea Nitrogen 14 7-18 MG/DL Creatinine 0.95 0.60-1.30 MG/DL Estimat Glomerular Filtration Rate 72 BUN/Creatinine Ratio 15 Glucose Level 153 H 70-105 MG/DL Calcium Level 8.9 8.5-10.1 MG/DL Corrected Calcium 8.9 8.5-10.1 MG/DL Magnesium Level 1.9 1.6-2.4 MG/DL Total Bilirubin 0.3 0.1-1.0 MG/DL Aspartate Amino Transf (AST/SGOT) 54 H 5-34 U/L Alanine Aminotransferase (ALT/SGPT) 47 0-55 U/L Alkaline Phosphatase 77 40-136 U/L Myoglobin 21.9 10.0-92.0 NG/ML Troponin I < 0.028 <0.028 NG/ML B-Type Natriuretic Peptide < 10.0 <100.0 PG/ML Total Protein 6.8 6.4-8.2 GM/DL Albumin 4.0 3.2-4.5 GM/DL My Orders Orders - LEIF GARRISON PA Cbc With Automated Diff (01/15/22:) Magnesium (01/15/22:) Chest 1 View, Ap/Pa Only (01/15/22:) Ekg Tracing (01/15/22:) Comprehensive Metabolic Panel (01/15/22:) Myoglobin Serum (01/15/22:) Protime With Inr (01/15/22:) Partial Thromboplastin Time (01/15/22:) Monitor-Rhythm Ecg Trace Only (01/15/22:) Lipid Panel (01/16/22 06:00) Ed Iv/Invasive Line Start (01/15/22:31) Bnp Olga (01/15/22:) Fibrin Degradation Products (01/15/22:) Troponin I Clarion (01/15/22:) Aspirin Chewable Tablet (Baby Aspirin Ch (01/15/22 17:45) Fentanyl Inj (Sublimaze Injection) (01/15/22 19:08) Promethazine Injection (Phenergan Injec (01/15/22 19:15) Covid 19 Inhouse Test (01/15/22 19:13) Influenza A And B By Pcr (01/15/22 19:13) Rx-Albuterol Inhaler (Rx-Ventolin Hfa In (01/15/22 19:45) Promethazine Injection (Phenergan Injec (01/15/22 20:00) Ed Admission (Communication) (01/15/22 20:26) Medications Given in ED Current Medications Medications Dose Ordered Sig/Tk Route Start Time Stop Time Status Last Admin Dose Admin Albuterol Sulfate 1 gm ONCE ONCE IH 01/15/22 19:45 01/15/22 19:46 DC 01/15/22 19:44 1 GM Aspirin 324 mg ONCE ONCE PO 01/15/22 17:45 01/15/22 17:46 DC 01/15/22 17:49 324 MG Promethazine HCl 12.5 mg ONCE ONCE IVP 01/15/22 20:00 01/15/22 20:01 DC 01/15/22 20:00 12.5 MG Vital Signs/I&O 01/15/22 17:22 Temp 36.5 Pulse 86 Resp 17 B/P (MAP) 180/105 (130) Pulse Ox 94 O2 Delivery Room Air Comment Sinus rhythm, low QRS voltage in pericardial leads, 82 bpm, QRS duration 73 MS, QTc 420 MS Departure Communication (Admissions) Time/Spoke to Admitting Phy: 20:29 Dr. Navarro accepts Communication (PCP) Patient with left-sided chest pain below her left breast over the past 3 weeks. Worse today with shortness of breath. She has a chronic intermittent cough states she has a history of asthma has not been using her inhaler as she is out at home. She has no notable wheezing. Her oxygen appear to drop in the low to mid 80s. She was placed on 2 L of oxygen. Continue having left-sided chest pain with no improvement after albuterol inhaler. Chest x-ray was negative for pneumonia, pneumothorax. D-dimer negative. Cardiac work-up unremarkable. Lab work otherwise reassuring and unremarkable. She had a cardiac stress test in 2020 that unremarkable for severe coronary artery disease. Due to her current chest pain with no improvement with fentanyl and Phenergan for her nausea jaspreet ent will be admitted for cardiac work-up. Patient was discussed with Dr. Quiles who recommends n.p.o. and serial troponins. May need to perform another stress test. Discussed patient with Dr. Navarro who accepts patient. This appears to be a asthma component. No history of COPD or smoking. We will try steroids and breathing treatments Impression Primary Impression: Chest pain Additional Impression: Hypoxia Disposition: ADMITTED INPATIENT Condition: Stable Admissions Decision to Admit Reason: Admit from ER (General) Decision to Admit/Date: Jan 15, 2022 Time/Decision to Admit Time: 20:28 Departure-Patient Inst. Referrals: MAGGIE COWAN MD (PCP) Primary Care Physician BRAD RONDON APRN (Family) Primary Care Physician LEIF GARRISON Jan 15, 2022 17:34
[2022-01-15] MEDS ORDERED: ASPIRIN 81 MG CHEW (CHILDREN'S ASA) PO ONE (17:45)
[2022-01-15 18:14] LABS: BASOPHILS % (AUTO) 1 % (0-10); EOSINOPHILS # (AUTO) 0.2 10^3/uL (0.0-0.3); EOSINOPHILS % (AUTO) 3 % (0-10); HEMATOCRIT 40 % (35-52); HEMOGLOBIN 12.8 g/dL (11.5-16.0); LYMPHOCYTES # (AUTO) 1.7 10^3/uL (1.0-4.0); LYMPHOCYTES % (AUTO) 35 % (12-44); MEAN CORPUSCULAR HEMOGLOBIN 28 pg (25-34); MEAN CORPUSCULAR HGB CONC 32 g/dL (32-36); MEAN CORPUSCULAR VOLUME 86 fL (80-99); MEAN PLATELET VOLUME 11.4 fL (9.0-12.2); MONOCYTES # (AUTO) 0.4 10^3/uL (0.0-1.0); MONOCYTES % (AUTO) 8 % (0-12); NEUTROPHILS # (AUTO) 2.7 10^3/uL (1.8-7.8); NEUTROPHILS % (AUTO) 53 % (42-75); PLATELET COUNT 163 10^3/uL (130-400)
--- NOTE | 2022-01-15 18:23 | Diagnostic Imaging Report ---
INDICATION: Chest pain. COMPARISON: 01/01/2020. FINDINGS: There is a persistent discoid opacity at the left lung base that may reflect atelectasis or scar. There is no new alveolar consolidation. There is no large effusion. There are no findings of pneumothorax. Heart size appears appropriate and pulmonary vascularity appears within normal limits. There are no current findings of edema or failure. IMPRESSION: 1. Stable appearance of the chest. No new or acute cardiopulmonary process evident. Dictated by: Dictated on workstation # [id number]
[2022-01-15 18:26] LABS: POTASSIUM 3.7 MMOL/L (3.6-5.0)
[2022-01-15 18:28] LABS: CALCIUM 8.9 MG/DL (8.5-10.1)
[2022-01-15 18:29] LABS: TOTAL PROTEIN 6.8 GM/DL (6.4-8.2)
[2022-01-15 18:31] LABS: BILIRUBIN,TOTAL 0.3 MG/DL (0.1-1.0)
[2022-01-15 18:32] LABS: CREATININE SERUM 0.95 MG/DL (0.60-1.30)
[2022-01-15 18:35] LABS: MAGNESIUM 1.9 MG/DL (1.6-2.4)
[2022-01-15 18:36] LABS: PROTHROMBIN TIME PATIENT 13.7 SEC (12.2-14.7)
[2022-01-15] MEDS ORDERED: fentaNYL INJ 100 MCG/2 ML AMP IVP STA (19:08)
[2022-01-15] MEDS ORDERED: PROMETHAZINE INJ 25 MG/ML (PHENERGAN) AMP IVP ONE ×2 (19:15→20:00)
[2022-01-15] MEDS ORDERED: RX-ALBUTEROL INHALER 8.5 GM HFA (PROAIR) IH ONE (19:45)
[2022-01-15] MEDS ORDERED: morphine INJ 10 MG/ML 1ML (SYR OR VIAL) IVP ONE (21:30)
--- NOTE | 2022-01-15 22:25 | Tele-ICU Consult ---
History of Present Illness History of Present Illness Date Seen by Provider: Jan 15, 2022 Time Seen by Provider: 22:17 History of Present Illness eICU note 51 yo F came to ED with 3 week Hx of CP, left side, some SOB and nausea, pain worse with exertion, DANIA on CPAP PMH HLD, HTN, asthma, In ED BP up at 180/105 lab d dimer ok, , trop ok, BNP ok, EKG non specific ST T wave changes, low voltage SpO2 in 80's, not wheezing, cardiac exam ok, Allergies and Home Medications Allergies Coded Allergies: Sulfa (Sulfonamide Antibiotics) (Verified Allergy, Unknown, 02/08/20) famotidine (Verified Allergy, Unknown, dry heaves, 02/08/20) hydrocodone (Verified Allergy, Unknown, itching. Pt has received hydromorphone w/o issue, 02/07/20) NOTE: Patient has taken Percocet and Lortab as home meds as recent as 12/25/17 ketorolac (Unverified Allergy, Unknown, 02/07/20) ketorolac tromethamine (Verified Allergy, Unknown, 02/07/20) levofloxacin (Unverified Allergy, Unknown, 02/07/20) GIVES HER THRUSH nitrofurantoin (Unverified Allergy, Unknown, 02/07/20) ondansetron (Verified Allergy, Unknown, 02/07/20) tramadol (Unverified Allergy, Unknown, 02/07/20) codeine (Unverified Adverse Reaction, Unknown, 02/07/20) Home Medications Alprazolam 1 Mg Tablet, 2 MG PO HS, (Reported) TAKES 2 (1MG) TABLETS Amlodipine Besylate 2.5 Mg Tablet, 2.5 MG PO DAILY, (Reported) Cefdinir 300 Mg Capsule, 300 MG PO BID Prescribed by: KELY WIGGINS on 01/07/22 1153 Gabapentin 800 Mg Tablet, 900 MG PO DAILY, (Reported) Metoprolol Tartrate 100 Mg Tablet, 100 MG PO BID, (Reported) Oxycodone HCl/Acetaminophen 5 Mg-325 Mg Tablet, 1 EACH PO Q6H PRN for PAIN- SEVERE Prescribed by: KELY WIGGINS on 01/07/22 1153 Pantoprazole Sodium 40 Mg Tablet.dr, 40 MG PO DAILY, (Reported) Quetiapine Fumarate 300 Mg Tablet, 300 MG PO DAILY, (Reported) Ropinirole HCl 5 Mg Tablet, 5 MG PO HS, (Reported) Sucralfate 1 Gm Tablet, 1 GM PO UD, (Reported) Tamsulosin HCl 0.4 Mg Cap, 0.4 MG PO DAILY Prescribed by: BILLIE HULL on 02/08/20 0931 Tamsulosin HCl 0.4 Mg Cap, 0.4 MG PO DAILY Prescribed by: KELY WIGGINS on 01/07/22 1153 Trazodone HCl 150 Mg Tablet, 150 MG PO HS, (Reported) Past Medical/Social/Family Hx Immunizations Up To Date First/Initial COVID19 Vaccinat: NOVEMBER 2020 Second COVID19 Vaccination [place]les[place]: NOVEMBER 2020 Tetanus Booster (TDap): Unknown TB Skin Test: None Date of Pneumonia Vaccine: Mar 01, 2013 Current Status status: No Communicates: Verbally Primary Language: Azerbaijani Preferred Spoken Language: Azerbaijani Is interpretation needed?: No Past Medical History PMHx: HTN Nephrolithiasis Chronic pain HLD Anxiety Mood disorder PSurgHx: Cholecystectomy Tubal Ligation Hysterectomy Tonsillectomy Carpal tunnel release Breast reduction Bladder sling Family Medical History Family Hx: PSH: -CHOLECYSTECTOMY -APPENDECTOMY -LAP GABY FUNDOPLICATION -BILATERAL TUBAL LIGATION -LAPAROSCOPIES FOR OVARIAN CYSTS -HYSTERECTOMY/BILATERAL SALPINGO-OOPHORECTOMY -CYSTOSCOPIES AND URETHRAL DILATIONS -LITHOTRIPSY -CYSTOSCOPY WITH KIDNEY STONE REMOVAL -TONSILLECTOMY/ADENOIDECTOMY -BREAST REDUCTION Review of Systems Constitutional: see HPI EENTM: see HPI Respiratory: see HPI Cardiovascular: see HPI Gastrointestinal: see HPI Genitourinary: see HPI Musculoskeletal: see HPI Skin: see HPI Psychiatric/Neurological: See HPI Focused Exam Height, Weight, BMI Height: 5'1.00" Weight: 162lbs. 0.0oz. 73.912533rt; 30.00 BMI Method:Stated Exam Exam Patient acknowledged, consented, and participated in this virtual visit which was conducted using real time audio/video Vital Signs Date Time Temp Pulse Resp B/P (MAP) Pulse Ox O2 Delivery O2 Flow Rate FiO2 01/15/22 17:22 36.5 86 17 180/105 (130) 94 Room Air Height & Weight Height: 5'1.00" Weight: 162lbs. 0.0oz. 73.095784cr; 30.00 BMI Method:Stated General Appearance: No Apparent Distress, WD/WN HEENT: PERRL/EOMI, TMs Normal, Normal ENT Inspection, Pharynx Normal Neck: Full Range of Motion, Normal Inspection, Non Tender, Supple Respiratory: Chest Non Tender, Lungs Clear, Normal Breath Sounds, No Accessory Muscle Use Cardiovascular: Regular Rate, Rhythm, No Edema, No Gallop, No JVD Capillary Refill: Less Than 3 Seconds Gastrointestinal: normal bowel sounds, non tender Extremity: Normal Capillary Refill, Normal Inspection, Normal Range of Motion, Non Tender Neurologic/Psychiatric: Alert, Oriented x3, No Motor/Sensory Deficits, Normal Mood/Affect Skin: Normal Color, Warm/Dry Results Lab Laboratory Tests 01/15/22 18:00 Assessment/Plan Assessment/Plan Having chest pain, does not sound cardiac, pt says has fibromyalgia, takes Trazadone, Gabapentin, given IV Fenntayl and morphine in ED, Also c/o nausea will do serial troponins, cardiology consult in am Also has restless legs syndrome, takes, Requip 5 mg will order Trazadone 150 q HS Requip 5 mg q HS, for RLS, and PRN morphine, also taking Seroquel 300 mg q am, Gabapentine 800m QTc is 446 Critical Care: Critically Ill Patient Time spent with patient (mins): 30 LISBET REED MD Jan 15, 2022 22:25
[2022-01-15] MEDS ORDERED: NITROGLYCERIN 0.4 MG SL TABS BTL 25'S SL PRN (22:30)
[2022-01-15] MEDS ORDERED: ANTACID SUSP 30 ML UDC (MYLANTA) PO PRN (22:30)
[2022-01-15] MEDS ORDERED: ACETAMINOPHEN 325 MG TABLET PO PRN (22:30)
[2022-01-15] MEDS ORDERED: diphenhydrAMINE 50 MG/ML INJ (BENADRYL) IVP PRN (22:30)
[2022-01-15] MEDS ORDERED: CALCIUM CARBONATE 500 MG (TUMS) TAB.CHEW PO PRN (22:30)
[2022-01-15] MEDS ORDERED: morphine IMMEDIATE RELEASE 15 MG TABLET PO PRN (22:30)
[2022-01-15] MEDS ORDERED: MELATONIN 3 MG TABLET PO PRN (22:30)
[2022-01-15] MEDS ORDERED: LORATADINE (CLARITIN) 10 MG TAB PO ONE (22:30)
[2022-01-15] MEDS ORDERED: LACTULOSE SYRUP 10GM/15ML (ENULOSE) 30ML UDC PO PRN (22:30)
[2022-01-15] MEDS ORDERED: BENZONATATE 100 MG (TESSALON) CAPSULE PO PRN (22:30)
[2022-01-15] MEDS ORDERED: diphenhydrAMINE 25 MG TAB (BENADRYL) PO PRN (22:30)
[2022-01-15] MEDS ORDERED: MILK OF MAGNESIA 400 MG/5 ML 30 ML UDC PO PRN (22:30)
[2022-01-15] MEDS ORDERED: polyethylene glycoL POWDER 17 GM (MIRALAX) PACK PO PRN (22:30)
[2022-01-15] MEDS ORDERED: guaiFENesin/DM (ROBITUSSIN DM) 10 ML UDC PO PRN (22:30)
[2022-01-15] MEDS ORDERED: PATIENT MAY USE OWN MEDS, ALL PO SCH (22:30)
[2022-01-15] MEDS ORDERED: BISACODYL 10 MG SUPP (DULCOLAX) PR PRN (22:30)
[2022-01-15] MEDS: PROCHLORPERAZINE 10 MG/2ML INJ (COMPAZINE) IV PRN (23:00)
[2022-01-15] MEDS: NS IV 1000 ML 1,000 ML IV SCH (23:00)
[2022-01-15] MEDS: cloNIDine 0.1 MG (CATAPRES) TAB PO PRN (23:11)
[2022-01-15] MEDS: morphine INJ 4 MG/ML 1 ML (VIAL/SYRINGE) IV PRN (23:11)
[2022-01-15] MEDS: ENOXAPARIN 40 MG/0.4 ML (LOVENOX) SYR SC SCH (23:12)
[2022-01-15] MEDS ORDERED: rOPINIRole 5 MG TAB (REQUIP) PO ONE (23:45)
[2022-01-15] MEDS ORDERED: traZODone 150 MG (DESYREL) TABLET PO ONE (23:45)
[2022-01-15] MEDS ORDERED: RT-ALBUTEROL SULF 2.5 MG/3 ML PRE-MIX VIAL INH PRN (23:45)
[2022-01-15] MEDS ORDERED: GABAPENTIN 400 MG (NEURONTIN) CAP PO ONE (23:45)
[2022-01-15] MEDS: methylPREDNISolone 40 MG/ML (Solu-MEDROL) VIAL IV SCH (23:47)
[2022-01-16] VITALS (8 sets, daily range): BP systolic 113–185; BP diastolic 71–107
[2022-01-16] MEDS: RT-ALBUTEROL SULF 2.5 MG/3 ML PRE-MIX VIAL INH SCH ×4 (02:28→21:11)
[2022-01-16] MEDS: morphine INJ 4 MG/ML 1 ML (VIAL/SYRINGE) IV PRN ×2 (04:30→21:03)
[2022-01-16] MEDS: methylPREDNISolone 40 MG/ML (Solu-MEDROL) VIAL IV SCH ×4 (04:30→23:51)
[2022-01-16 05:06] LABS: BASOPHILS % (AUTO) 0 % (0-10); EOSINOPHILS % (AUTO) 0 % (0-10); HEMATOCRIT 40 % (35-52); HEMOGLOBIN 12.8 g/dL (11.5-16.0); LYMPHOCYTES # (AUTO) 1.1 10^3/uL (1.0-4.0); LYMPHOCYTES % (AUTO) 21 % (12-44); MEAN CORPUSCULAR HEMOGLOBIN 28 pg (25-34); MEAN CORPUSCULAR HGB CONC 32 g/dL (32-36); MEAN CORPUSCULAR VOLUME 87 fL (80-99); MEAN PLATELET VOLUME 11.5 fL (9.0-12.2); MONOCYTES # (AUTO) 0.1 10^3/uL (0.0-1.0); MONOCYTES % (AUTO) 2 % (0-12); NEUTROPHILS # (AUTO) 3.9 10^3/uL (1.8-7.8); NEUTROPHILS % (AUTO) 76 % (42-75); PLATELET COUNT 163 10^3/uL (130-400); WHITE BLOOD COUNT 5.2 10^3/uL (4.3-11.0)
[2022-01-16 05:21] LABS: CHLORIDE 109 MMOL/L (98-107); POTASSIUM 3.8 MMOL/L (3.6-5.0); SODIUM 139 MMOL/L (135-145)
[2022-01-16 05:23] LABS: CALCIUM 9.1 MG/DL (8.5-10.1)
[2022-01-16 05:24] LABS: GLUCOSE 171 MG/DL (70-105); TOTAL PROTEIN 6.9 GM/DL (6.4-8.2)
[2022-01-16 05:25] LABS: CARBON DIOXIDE 20 MMOL/L (21-32)
[2022-01-16 05:26] LABS: BILIRUBIN,TOTAL 0.2 MG/DL (0.1-1.0)
[2022-01-16 05:27] LABS: ALKALINE PHOSPHATASE 79 U/L (40-136); CREATININE SERUM 0.87 MG/DL (0.60-1.30); GFR ESTIMATED 80
[2022-01-16 05:28] LABS: BUN/CREATININE RATIO 14
[2022-01-16 05:30] LABS: ALANINE AMINOTRANSFERASE 45 U/L (0-55)
[2022-01-16 05:32] LABS: TRIGLYCERIDES 199 MG/DL (<150); VLDL CHOLESTEROL 40 MG/DL (5-40)
[2022-01-16 05:37] LABS: CHOLESTEROL 179 MG/DL (< 200); HDL CHOLESTEROL 39 MG/DL (40-60)
[2022-01-16] MEDS: ASPIRIN E.C. 81 MG (ECOTRIN) TAB PO SCH (08:32)
[2022-01-16] MEDS: LORATADINE (CLARITIN) 10 MG TAB PO SCH (08:32)
[2022-01-16] MEDS: PROCHLORPERAZINE 10 MG/2ML INJ (COMPAZINE) IV PRN ×2 (08:32→18:25)
[2022-01-16] MEDS: DOCUSATE SODIUM 100 MG (COLACE) CAP PO SCH ×2 (09:00→20:02)
[2022-01-16] MEDS: SENNOSIDES 8.6 MG (SENOKOT) TAB PO SCH ×2 (09:00→20:02)
--- NOTE | 2022-01-16 10:07 | Consultation-Cardiology ---
HPI-Cardiology Cardiology Consultation: Date of Consultation 01/16/22 Date of Admission 01/15/22 Attending Physician Rolando Brooks MD Admitting Physician Admitting Physician: Chana Navarro DO Attending Physician: Lindsey Do MD Consulting Physician SABIHA FERREIRA JR, MD HPI: Time Seen by a Provider: 10:03 Chief Complaint: REASON FOR CONSULTATION: Chest pain. I had the pleasure of seeing Pattie at [facility] in [place], [place] today. She has no known history of coronary artery disease. For the past several weeks, she has been having a sharp pain in the center of her chest when she takes deep breaths. This does not happen every time she takes a deep breath. This will radiate to her back. This will happen off and on throughout the day. She did not initially seek medical attention. However, since the ches t discomfort has been persisting, yesterday she came to the emergency room for further evaluation. She has also been having some intermittent dyspnea at rest. She will be sitting and suddenly feel like she cannot catch her breath. This symptom is independent of the chest discomfort. She denies paroxysmal nocturnal dyspnea or orthopnea. From time to time she will have palpitations but without associated cardiac complaints. She has had some lightheaded spells but denies any syncope. She denies lower extremity edema. Because of the chest discomfort, a cardiology consultation was requested. She does also note that for at least the past several months she has been having dysphagia. She has been careful about chewing her food very carefully. She has not had any trouble swallowing liquids but on one occasion felt like something got stuck in her esophagus and she actually had to start coughing to expel the food. She does not have any known history of esophageal reflux disease but did have a hiatal hernia repaired many years ago. She has chronic issues with nausea. Certain portions of this document may have been dictated utilizing voice recognition technology. Inherent to this technology, typographical and grammatical errors may exist. As much as I am diligent to identify and correct these mistakes, some errors may remain in the document. Review of Systems-Cardiology Review of Systems Other comments Review of 10 organ systems is as per the history of present illness, otherwise negative. All Other Systems Reviewed Negative Unless Noted: Yes [id number] Hx Patient Social History Marrital Status: Smoking Status: Never a Smoker 2nd Hand Smoke Exposure: No Have you traveled recently?: No Alcohol Use?: No Pt feels they are or have been: No Immunizations Up To Date Tetanus Booster (TDap): Unknown Date of Pneumonia Vaccine: Mar 01, 2013 Date of Influenza Vaccine: Mar 16, 2021 Past Medical History PMH As described under Assessment. Family Medical History Family History: Dementia 19 FATHER Family history: Cardiovascular disease 19 FATHER Family history: Diabetes mellitus G8 SISTER Family history: Hypertension 19 FATHER 19 MOTHER History of - respiratory disease 19 MOTHER Seizure disorder G8 SISTER No Family History of: Abdominal aortic aneurysm Jatinder's disease Alcoholism Aphasia Cancer Cancer of colon Cataract Chest pain Congenital heart disease Congestive heart failure Cystic fibrosis Family history: Osteoporosis Family history: Thyroid disorder Headache Hearing loss Heart disease Hereditary disease History of - anemia History of - disorder History of drug abuse Human immunodeficiency virus (HIV) seropositivity Hypercholesterolemia Infertile Kidney disease Malignant neoplasm of lung Myocardial infarction Parkinson's disease Prostate cancer Psychotic disorder Stroke Tuberculosis Visual impairment Allergies and Home Medications Allergies Coded Allergies: Sulfa (Sulfonamide Antibiotics) (Verified Allergy, Unknown, 02/08/20) famotidine (Verified Allergy, Unknown, dry heaves, 02/08/20) hydrocodone (Verified Allergy, Unknown, itching. Pt has received hydromorphone w/o issue, 02/07/20) NOTE: Patient has taken Percocet and Lortab as home meds as recent as 12/25/17 ketorolac (Unverified Allergy, Unknown, 02/07/20) ketorolac tromethamine (Verified Allergy, Unknown, 02/07/20) levofloxacin (Unverified Allergy, Unknown, 02/07/20) GIVES HER THRUSH nitrofurantoin (Unverified Allergy, Unknown, 02/07/20) ondansetron (Verified Allergy, Unknown, 02/07/20) tramadol (Unverified Allergy, Unknown, 02/07/20) codeine (Unverified Adverse Reaction, Unknown, 02/07/20) Patient Home Medication List Home Medication List Reviewed: Yes Alprazolam (Alprazolam) 1 Mg Tablet, 2 MG PO HS, (Reported) Entered as Reported by: ANEL RICH on 10/21/17 1220 Amlodipine Besylate (Amlodipine Besylate) 2.5 Mg Tablet, 2.5 MG PO DAILY, (Reported) Entered as Reported by: ANEL RICH on 10/21/17 1220 Cefdinir (Cefdinir) 300 Mg Capsule, 300 MG PO BID Prescribed by: KELY WIGGINS on 01/07/22 1153 Gabapentin (Gabapentin) 800 Mg Tablet, 900 MG PO DAILY, (Reported) Entered as Reported by: SHAQUILLE FULTON on 06/20/21 1048 Metoprolol Tartrate (Metoprolol Tartrate) 100 Mg Tablet, 100 MG PO BID, (Reported) Entered as Reported by: SHAQUILLE FULTON on 06/20/21 1048 Naproxen Sodium (Aleve) 220 Mg Tablet, 220 MG PO, (Reported) Entered as Reported by: BILLIE HULL on 01/04/20 0635 Oxycodone HCl/Acetaminophen (Oxycodone-Acetaminophen 5-325) 5 Mg-325 Mg Tablet, 1 EACH PO Q6H PRN for PAIN-SEVERE Prescribed by: KELY WIGGINS on 01/07/22 1153 Pantoprazole Sodium (Pantoprazole Sodium) 40 Mg Tablet.dr, 40 MG PO DAILY, (Reported) Entered as Reported by: SHAQUILLE FULTON on 06/20/21 1048 Quetiapine Fumarate (Quetiapine Fumarate) 300 Mg Tablet, 300 MG PO DAILY, (Reported) Entered as Reported by: SHAQUILLE FULTON on 06/20/21 1048 Ropinirole HCl (Ropinirole HCl) 5 Mg Tablet, 5 MG PO HS, (Reported) Entered as Reported by: SHAQUILLE FULTON on 06/20/21 1048 Sucralfate (Sucralfate) 1 Gm Tablet, 1 GM PO UD, (Reported) Entered as Reported by: SHAQUILLE FULTON on 06/20/21 1048 Tamsulosin HCl (Flomax) 0.4 Mg Cap, 0.4 MG PO DAILY Prescribed by: BILLIE HULL on 02/08/20 0931 Tamsulosin HCl (Flomax) 0.4 Mg Cap, 0.4 MG PO DAILY Prescribed by: KELY WIGGINS on 01/07/22 1153 Trazodone HCl (Trazodone HCl) 150 Mg Tablet, 150 MG PO HS, (Reported) Entered as Reported by: SHAQUILLE FULTON on 1/20/22 1048 Exam Vital Signs Vital Signs Date Time Temp Pulse Resp B/P (MAP) Pulse Ox O2 Delivery O2 Flow Rate FiO2 01/16/22 08:00 80 19 154/100 (118) 90 Nasal Cannula 2.00 01/16/22 07:33 36.0 01/15/22 23:14 21 Physical Exam General: Alert. No acute distress. Well nourished and appears stated age. She is obese. Eye: Extraocular movements are intact. Conjunctivae are clear. There are no xanthelasma. HENT: Normocephalic. Atraumatic. Carotid pulsations 2/2 without bruits. Neck: Jugular venous pressure does not appear elevated. No thyromegaly appreciated. Respiratory: Lungs are clear to auscultation. Respirations are non-labored. Breath sounds are equal. Symmetrical chest wall expansion. Cardiovascular: Normal rate. Regular rhythm. No murmur. No gallop. Point of maximal impulse is not appear displaced. Good pulses equal in all extremities. No edema. Gastrointestinal: Soft. Normal bowel sounds. Skin: Skin turgor is normal. There is no pallor. Musculoskeletal: No kyphosis or scoliosis appreciated. Neurologic: Alert and oriented to person, place, time. Cranial nerves 3-12 appear grossly intact. The patient has good motor tone strength in the upper and lower extremities bilaterally. Psychiatric: Cooperative. Appropriate mood & affect. Labs Laboratory Tests Test 01/15/22 18:00 01/15/22 19:19 01/16/22 01:00 01/16/22 05:00 Range/Units White Blood Count 5.0 5.2 4.3-11.0 10^3/uL Red Blood Count 4.59 4.56 3.80-5.11 10^6/uL Hemoglobin 12.8 12.8 11.5-16.0 g/dL Hematocrit 40 40 35-52 % Mean Corpuscular Volume 86 87 80-99 fL Mean Corpuscular Hemoglobin 28 28 25-34 pg Mean Corpuscular Hemoglobin Concent 32 32 32-36 g/dL Red Cell Distribution Width 12.6 12.4 10.0-14.5 % Platelet Count 163 163 130-400 10^3/uL Mean Platelet Volume 11.4 11.5 9.0-12.2 fL Immature Granulocyte % (Auto) 0 1 % Neutrophils (%) (Auto) 53 76 H 42-75 % Lymphocytes (%) (Auto) 35 21 12-44 % Monocytes (%) (Auto) 8 2 0-12 % Eosinophils (%) (Auto) 3 0 0-10 % Basophils (%) (Auto) 1 0 0-10 % Neutrophils # (Auto) 2.7 3.9 1.8-7.8 10^3/uL Lymphocytes # (Auto) 1.7 1.1 1.0-4.0 10^3/uL Monocytes # (Auto) 0.4 0.1 0.0-1.0 10^3/uL Eosinophils # (Auto) 0.2 0.0 0.0-0.3 10^3/uL Basophils # (Auto) 0.0 0.0 0.0-0.1 10^3/uL Immature Granulocyte # (Auto) 0.0 0.0 0.0-0.1 10^3/uL Prothrombin Time 13.7 12.2-14.7 SEC INR Comment 1.0 0.8-1.4 Activated Partial Thromboplast Time 30 24-35 SEC D-Dimer <= 0.27 0.00-0.49 UG/ML Sodium Level 140 139 135-145 MMOL/L Potassium Level 3.7 3.8 3.6-5.0 MMOL/L Chloride Level 107 109 H 98-107 MMOL/L Carbon Dioxide Level 23 20 L 21-32 MMOL/L Anion Gap 10 10 5-14 MMOL/L Blood Urea Nitrogen 14 12 7-18 MG/DL Creatinine 0.95 0.87 0.60-1.30 MG/DL Estimat Glomerular Filtration Rate 72 80 BUN/Creatinine Ratio 15 14 Glucose Level 153 H 171 H 70-105 MG/DL Calcium Level 8.9 9.1 8.5-10.1 MG/DL Corrected Calcium 8.9 9.1 8.5-10.1 MG/DL Magnesium Level 1.9 1.6-2.4 MG/DL Total Bilirubin 0.3 0.2 0.1-1.0 MG/DL Aspartate Amino Transf (AST/SGOT) 54 H 30 5-34 U/L Alanine Aminotransferase (ALT/SGPT) 47 45 0-55 U/L Alkaline Phosphatase 77 79 40-136 U/L Myoglobin 21.9 10.0-92.0 NG/ML Troponin I < 0.028 < 0.028 < 0.028 <0.028 NG/ML B-Type Natriuretic Peptide < 10.0 <100.0 PG/ML Total Protein 6.8 6.9 6.4-8.2 GM/DL Albumin 4.0 4.0 3.2-4.5 GM/DL Influenza Type A (RT-PCR) Not Detected Not Detecte Influenza Type B (RT-PCR) Not Detected Not Detecte SARS-CoV-2 RNA (RT-PCR) Not Detected Not Detecte Triglycerides Level 199 H <150 MG/DL Cholesterol Level 179 < 200 MG/DL LDL Cholesterol Direct 109 1-129 MG/DL VLDL Cholesterol 40 5-40 MG/DL HDL Cholesterol 39 L 40-60 MG/DL Radiology ECHOCARDIOGRAM (01/16/2022): 1. This is a technically difficult study due to poor image quality secondary to patient's body habitus. 2. Left ventricle: The cavity size is normal. Wall thickness is normal. Systolic function is normal. The estimated ejection fraction is 55-60%. Regional wall motion abnormalities cannot be excluded due to poor endocardial definition. Doppler parameters are consistent with abnormal left ventricular relaxation (grade 1 diastolic dysfunction). 3. Pulmonary arteries: The estimated pulmonary artery systolic pressure is 29 mmHg assuming a right atrial pressure of 5 mmHg. REG[facility] NUCLEAR STRESS TEST (11/02/2020): 1. No evidence of any significant myocardial ischemia or infarction on this study. 2. Normal regional wall motion. 3. Normal global left ventricular systolic function with a calculated ejection fraction of 75%. ECG Impression ECG Comment Sinus rhythm with nonspecific anterolateral T wave changes, similar to previous tracings. Diagnosis/Problems Diagnosis/Problems (1) Chest pain Assessment & Plan: Exact etiology unclear. This sounds like noncardiac chest pain. She had 3 undetectable troponin levels and nonspecific findings on her electrocardiogram that are chronic. She just had a stress test in October 2020 that showed normal myocardial perfusion. Her echocardiogram from today did not show any structural heart disease to explain chest pain. Her D-dimer level was undetectable which suggest that this chest pain is unlikely to be due to pulmonary embolism. Given her dysphagia, I would question whether or not she may have an esophageal stricture and/or gastroesophageal reflux disease causing her chest pain. Additionally, she had previous injury to her thoracic spine and may have some musculoskeletal chest pain due to her chronic back pain. I do not see any indication for additional cardiac work-up at this time. I have consulted general surgery to see about evaluation of her dysphagia. (2) Abnormal electrocardiogram Assessment & Plan: She has borderline abnormal electrocardiogram with anterolateral T wave changes which are chronic. No additional testing is indicated for this abnormality at this point in time. (3) Primary hypertension Assessment & Plan: Continue outpatient antihypertensive medication. (4) Mixed hyperlipidemia Assessment & Plan: Continue statin medication. (5) Degenerative disc disease, thoracic Status: Chronic Assessment & Plan: As above, this could also be contributing to her chest pain. (6) History of repair of hiatal hernia Assessment & Plan: From her description, she had a previous hiatal hernia repair. Unclear whether or not this could be causing reflux that could then be leading to chest pain and/or development of esophageal stricture. As above, I have consulted general surgery for consideration of upper endoscopy. (7) Obesity Status: Chronic Assessment & Plan: She needs to work on weight loss. SABIHA FERREIRA JR, MD Jan 16, 2022 10:07
[2022-01-16] MEDS ORDERED: FLUC100T10 PO (11:18)
[2022-01-16] MEDS ORDERED: BUSP15TA60 PO (11:18)
[2022-01-16] MEDS ORDERED: GABA300C PO (11:18)
[2022-01-16] MEDS ORDERED: PROM25TA14 PO (11:18)
[2022-01-16] MEDS ORDERED: DICY20TA PO (11:18)
[2022-01-16] MEDS ORDERED: CEFD300C3 PO (11:18)
[2022-01-16] MEDS ORDERED: NYST1000 PO (11:18)
[2022-01-16] MEDS ORDERED: ROSU10TA28 PO (11:18)
[2022-01-16] MEDS ORDERED: QUET400T13 PO (11:18)
[2022-01-16] MEDS ORDERED: DICL100G13 TOP (11:18)
[2022-01-16] MEDS ORDERED: ROPI3TAB4 PO (11:18)
[2022-01-16] MEDS ORDERED: PROMETHAZINE INJ 25 MG/ML (PHENERGAN) AMP ONE (11:48)
[2022-01-16] MEDS: ALPRAZolam 0.5 MG (XANAX) TAB PO PRN ×2 (11:50→21:03)
[2022-01-16] MEDS: PROMETHAZINE INJ 25 MG/ML (PHENERGAN) AMP IVP PRN ×2 (11:50→19:51)
[2022-01-16] MEDS: cloNIDine 0.1 MG (CATAPRES) TAB PO PRN (12:45)
--- NOTE | 2022-01-16 13:42 | Consultation - Surgery ---
YAYA MONAHAN 01/16/22 1342: History of Present Illness History of Present Illness Patient Consulted On(obdulio/time) 01/16/22 13:32 Date Seen by Provider: Jan 16, 2022 Time Seen by Provider: 13:32 Reason for Visit: CP and dysphagia History of Present Illness Consult requested by Dr. Quiles 51 yo female with h/o IBS presents with complaint of dysphagia that has been progressively worsening over the past few years. Pt states that she has history of dysphagia with solid foods with associated left sided CP that radiates to her left upper back, shoulder, and ribs. Pt says that she is currently experiencing 6/10 pain but notes that at worst the pain is 7-8/10. Pt notes associated nausea and "dry heaves" in the morning. Pt states that laying down does help alleviate some of the pain and nothing makes the pain worse. Pt denies vomiting, diarrhea, and chills. Pt had a Chest XRAY on 01/15 that showed no new or acute cardiopulmonary changes. Allergies and Home Medications Allergies Coded Allergies: Sulfa (Sulfonamide Antibiotics) (Verified Allergy, Unknown, 02/08/20) famotidine (Verified Allergy, Unknown, dry heaves, 02/08/20) hydrocodone (Verified Allergy, Unknown, itching. Pt has received h ydromorphone w/o issue, 02/07/20) NOTE: Patient has taken Percocet and Lortab as home meds as recent as 12/25/17 ketorolac (Unverified Allergy, Unknown, 02/07/20) ketorolac tromethamine (Verified Allergy, Unknown, 02/07/20) levofloxacin (Unverified Allergy, Unknown, 02/07/20) GIVES HER THRUSH nitrofurantoin (Unverified Allergy, Unknown, 02/07/20) ondansetron (Verified Allergy, Unknown, 02/07/20) tramadol (Unverified Allergy, Unknown, 02/07/20) codeine (Unverified Adverse Reaction, Unknown, 02/07/20) Patient Home Medication List Home Medication List Reviewed: Yes Alprazolam (Alprazolam) 1 Mg Tablet, 2 MG PO HS, (Reported) Entered as Reported by: ANEL RICH on 10/21/17 1220 Last Action: Reviewed Amlodipine Besylate (Amlodipine Besylate) 2.5 Mg Tablet, 2.5 MG PO HS, (Reported) Entered as Reported by: ANEL RICH on 10/21/17 1220 Last Action: Reviewed Buspirone HCl (Buspirone HCl) 15 Mg Tablet, 15 MG PO TID, (Reported) Entered as Reported by: GUICHO GALVAN on 01/16/221117 Last Action: Reviewed Cefdinir (Cefdinir) 300 Mg Capsule, 300 MG PO BID, (Reported) Entered as Reported by: GUICHO GALVAN on 01/16/221117 Last Action: Reviewed Diclofenac Sodium (Diclofenac Sodium) 1 % Gel..gram., 2 GM TOP QID PRN for PAIN- BREAKTHROUGH, (Reported) Entered as Reported by: GUICHO GALVAN on 01/16/221117 Last Action: Reviewed Dicyclomine HCl (Dicyclomine HCl) 20 Mg Tablet, 20 MG PO QID PRN for GI SYMPTOMS, (Reported) Entered as Reported by: GUICHO GALVAN on 01/16/221117 Last Action: Reviewed Fluconazole (Fluconazole) 100 Mg Tablet, 100 MG PO DAILY, (Reported) Entered as Reported by: GUICHO GALVAN on 01/16/221117 Last Action: Edited Gabapentin (Neurontin) 300 Mg Capsule, 300 MG PO BID, (Reported) Entered as Reported by: GUIHCO GALVAN on 01/16/221117 Last Action: Reviewed Metoprolol Tartrate (Metoprolol Tartrate) 100 Mg Tablet, 100 MG PO BID, (Reported) Entered as Reported by: SHAQUILLE FULTON on 06/20/21 104 Last Action: Reviewed Nystatin (Nystatin) 100,000 Unit/Ml Oral.susp, 5 ML PO Q6H PRN for THRUSH, (Reported) Entered as Reported by: GUICHO GALVAN on 01/16/221117 Last Action: Reviewed Promethazine HCl (Promethazine Tablet) 25 Mg Tablet, 25 MG PO QID PRN for NAUSEA/VOMITING-2ND LINE, (Reported) Entered as Reported by: GUICHO GALVAN on 01/16/221117 Last Action: Reviewed Quetiapine Fumarate (Quetiapine Fumarate) 400 Mg Tablet, 600 MG PO HS, (Reported) Entered as Reported by: GUICHO GALVAN on 01/16/221117 Last Action: Reviewed Ropinirole HCl (Ropinirole HCl) 3 Mg Tablet, 3 MG PO HS, (Reported) Entered as Reported by: GUICHO GALVAN on 01/16/221117 Last Action: Reviewed Rosuvastatin Calcium (Rosuvastatin Calcium) 10 Mg Tablet, 10 MG PO HS, (Reported) Entered as Reported by: GUICHO GALVAN on 01/16/221117 Last Action: Reviewed Trazodone HCl (Trazodone HCl) 150 Mg Tablet, 300 MG PO HS, (Reported) Entered as Reported by: SHAQUILLE FULTON on 06/20/211047 Last Action: Reviewed Discontinued Medications Cefdinir (Cefdinir) 300 Mg Capsule, 300 MG PO BID Discontinued Reason: No Longer Taking Prescribed by: KELY WIGGINS on 01/07/221152 Last Action: Discontinued Gabapentin (Gabapentin) 800 Mg Tablet, 900 MG PO DAILY, (Reported) Discontinued Reason: No Longer Taking Entered as Reported by: SHAQUILLE FULTON on 06/20/211047 Last Action: Discontinued Naproxen Sodium (Aleve) 220 Mg Tablet, 220 MG PO, (Reported) Discontinued Reason: No Longer Taking Entered as Reported by: BILLIE HULL on 01/04/20 0635 Last Action: Discontinued Oxycodone HCl/Acetaminophen (Oxycodone-Acetaminophen 5-325) 5 Mg-325 Mg Tablet, 1 EACH PO Q6H PRN for PAIN-SEVERE Discontinued Reason: No Longer Taking Prescribed by: KELY WIGGINS on 01/07/221152 Last Action: Discontinued Pantoprazole Sodium (Pantoprazole Sodium) 40 Mg Tablet.dr, 40 MG PO DAILY, (Reported) Discontinued Reason: No Longer Taking Entered as Reported by: SHAQUILLE FULTON on 06/20/211047 Last Action: Discontinued Quetiapine Fumarate (Quetiapine Fumarate) 300 Mg Tablet, 300 MG PO DAILY, (Reported) Discontinued Reason: No Longer Taking Entered as Reported by: SHAQUILLE FULTON on 06/20/211047 Last Action: Discontinued Ropinirole HCl (Ropinirole HCl) 5 Mg Tablet, 5 MG PO HS, (Reported) Discontinued Reason: No Longer Taking Entered as Reported by: SHAQUILLE FULTON on 06/20/211047 Last Action: Discontinued Sucralfate (Sucralfate) 1 Gm Tablet, 1 GM PO UD, (Reported) Discontinued Reason: No Longer Taking Entered as Reported by: SHAQUILLE FULTON on 06/20/21 1048 Last Action: Discontinued Tamsulosin HCl (Flomax) 0.4 Mg Cap, 0.4 MG PO DAILY Discontinued Reason: No Longer Taking Prescribed by: BILLIE HULL on 02/08/20 0931 Last Action: Discontinued Tamsulosin HCl (Flomax) 0.4 Mg Cap, 0.4 MG PO DAILY Discontinued Reason: No Longer Taking Prescribed by: KELY WIGGINS on 01/07/22 1153 Last Action: Discontinued Past Rywziaj-Iwrcdn-Hszwqw Hx Patient Social History Smoking Status: Never a Smoker 2nd Hand Smoke Exposure: No Recent Hopitalizations: No Alcohol Use?: No Have you traveled recently?: No Immunizations Up To Date Tetanus Booster (TDap): Unknown PED Vaccines UTD: No Date of Pneumonia Vaccine: Mar 01, 2013 Date of Influenza Vaccine: Mar 16, 2021 Seasonal Allergies Seasonal Allergies: Yes (MILD) Surgeries History of Surgeries: Yes (breast reduction;several cysto's with UD;lap santa;LITHOTRIPSY/KIDNEY ST) Surgeries: Abdominal, Appendectomy, Bladder Surgery, Breast, Gallbladder, Hysterectomy, Oophorectomy, Renal, Tonsillectomy, Tubal Ligation Respiratory History of Respiratory Disorde: Yes (MILD ASTHMA RELATED TO SEASONAL ALLERGIES) Respiratory Disorders: Asthma, Pneumonia, Chronic Bronchitis, Sleep Apnea Cardiovascular History of Cardiac Disorders: Yes (TACHYCARDIA) Cardiac Disorders: High Cholesterol, Hypertension, Irregular Heartbeat Neurological History of Neurological Disord: Yes (LAST SEIZURE 07/2017) Neurological Disorders: Headaches /Migraines, Seizure Disorder Reproductive System Hx Reproductive Disorders: Yes Sexually Transmitted Disease: No HIV/AIDS: No 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 Problems, Ovarian Cyst 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, 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 Genitourinary History of Genitourinary Disor: Yes (INCONTINENCE;LITHOTRIPSY/KIDNEY STONE REMOVAL) Genitourinary Disorders: Bladder Infection, Kidney Stones, Renal Failure, UTI- Chronic Gastrointestinal History of Gastrointestinal Di: Yes (S/P HIATAL HERNIA REPAIR) Gastrointestinal Disorders: Gastroesophageal Reflux, Pancreatitis, Chronic Diarrhea, Hiatal Hernia, Irritable Bowel Musculoskeletal History of Musculoskeletal Dis: Yes Musculoskeletal Disorders: Fibromyalgia, Chronic Back Pain Endocrine History of Endocrine Disorders: No HEENT History of HEENT Disorders: No Loss of Vision: Bilateral Hearing Impairment: Denies Cancer History of Cancer: Yes Cancer: Vaginal Psychosocial History of Psychiatric Problem: Yes (EXTENSIVE PSYCH ISSUES) Behavioral Health Disorders: Anxiety, Depression Integumentary History of Skin or Integumenta: No Blood Transfusions History of Blood Disorders: No Adverse Reaction to a Blood Tr: No (HAS HAD BLOOD WITH NO REACTION) Family Medical History Significant Family History: Heart Disease, Diabetes, Hypertension, Lung Disease, Seizures Family Medial History: Dementia 19 FATHER Family history: Cardiovascular disease 19 FATHER Family history: Diabetes mellitus G8 SISTER Family history: Hypertension 19 FATHER 19 MOTHER History of - respiratory disease 19 MOTHER Seizure disorder G8 SISTER No Family History of: Abdominal aortic aneurysm Jatinder's disease Alcoholism Aphasia Cancer Cancer of colon Cataract Chest pain Congenital heart disease Congestive heart failure Cystic fibrosis Family history: Osteoporosis Family history: Thyroid disorder Headache Hearing loss Heart disease Hereditary disease History of - anemia History of - disorder History of drug abuse Human immunodeficiency virus (HIV) seropositivity Hypercholesterolemia Infertile Kidney disease Malignant neoplasm of lung Myocardial infarction Parkinson's disease Prostate cancer Psychotic disorder Stroke Tuberculosis Visual impairment Review of Systems-General Constitutional: No chills, No diaphoresis EENTM: No ear discharge, No ear pain Respiratory: No cough, No dyspnea on exertion Cardiovascular: chest pain; No edema Gastrointestinal: No abdominal pain, No diarrhea; nausea; No vomiting Genitourinary: No decreased output, No discharge Musculoskeletal: back pain; No gout, No joint pain Skin: No change in color, No change in hair/nails Psychiatric/Neurological: Denies Anxiety, Denies Depressed All Other Systems Reviewed Negative Unless Noted: Yes Physical Exam-General Problems Physical Exam Vital Signs Vital Signs - First Documented 01/15/22 01/15/22 01/15/22 17:22 22:16 23:14 Temp 36.5 Pulse 86 Resp 17 B/P (MAP) 180/105 (130) Pulse Ox 94 O2 Delivery Room Air O2 Flow Rate 2.00 FiO2 21 Capillary Refill : Less Than 3 Seconds General Appearance: WD/WN, no apparent distress HEENT: PERRL/EOMI, normal ENT inspection Neck: supple, tender lateral (b/l ) Respiratory: no respiratory distress, no accessory muscle use Cardiovascular: no edema, no JVD Gastrointestinal: soft, no organomegaly Back: normal inspection, no CVA tenderness Extremities: normal range of motion, normal inspection Neurologic/Psychiatric: alert, normal mood/affect Skin: normal color, warm/dry Lymphatic: no adenopathy Data Review Labs Laboratory Tests 01/15/22 18:00: White Blood Count 5.0, Red Blood Count 4.59, Hemoglobin 12.8, Hematocrit 40, Mean Corpuscular Volume 86, Mean Corpuscular Hemoglobin 28, Mean Corpuscular Hemoglobin Concent 32, Red Cell Distribution Width 12.6, Platelet Count 163, Mean Platelet Volume 11.4, Immature Granulocyte % (Auto) 0, Neutrophils (%) (Auto) 53, Lymphocytes (%) (Auto) 35, Monocytes (%) (Auto) 8, Eosinophils (%) (Auto) 3, Basophils (%) (Auto) 1, Neutrophils # (Auto) 2.7, Lymphocytes # (Auto) 1.7, Monocytes # (Auto) 0.4, Eosinophils # (Auto) 0.2, Basophils # (Auto) 0.0, Immature Granulocyte # (Auto) 0.0, Prothrombin Time 13.7, INR Comment 1.0, Activated Partial Thromboplast Time 30, D-Dimer <= 0.27, Sodium Level 140, Potassium Level 3.7, Chloride Level 107, Carbon Dioxide Level 23, Anion Gap 10, Blood Urea Nitrogen 14, Creatinine 0.95, Estimat Glomerular Filtration Rate 72, BUN/Creatinine Ratio 15, Glucose Level 153H, Calcium Level 8.9, Corrected Calcium 8.9, Magnesium Level 1.9, Total Bilirubin 0.3, Aspartate Amino Transf (AST/SGOT) 54H, Alanine Aminotransferase (ALT/SGPT) 47, Alkaline Phosphatase 77, Myoglobin 21.9, Troponin I < 0.028, B-Type Natriuretic Peptide < 10.0, Total Protein 6.8, Albumin 4.0 01/15/22 19:19: Influenza Type A (RT-PCR) Not Detected, Influenza Type B (RT-PCR) Not Detected, SARS-CoV-2 RNA (RT-PCR) Not Detected 01/16/22 01:00: Troponin I < 0.028 01/16/22 05:00: White Blood Count 5.2, Red Blood Count 4.56, Hemoglobin 12.8, Hematocrit 40, Mean Corpuscular Volume 87, Mean Corpuscular Hemoglobin 28, Mean Corpuscular Hemoglobin Concent 32, Red Cell Distribution Width 12.4, Platelet Count 163, Mean Platelet Volume 11.5, Immature Granulocyte % (Auto) 1, Neutrophils (%) (Auto) 76H, Lymphocytes (%) (Auto) 21, Monocytes (%) (Auto) 2, Eosinophils (%) (Auto) 0, Basophils (%) (Auto) 0, Neutrophils # (Auto) 3.9, Lymphocytes # (Auto) 1.1, Monocytes # (Auto) 0.1, Eosinophils # (Auto) 0.0, Basophils # (Auto) 0.0, Immature Granulocyte # (Auto) 0.0, Sodium Level 139, Potassium Level 3.8, Chloride Level 109H, Carbon Dioxide Level 20L, Anion Gap 10, Blood Urea Nitrogen 12, Creatinine 0.87, Estimat Glomerular Filtration Rate 80, BUN/Creatinine Ratio 14, Glucose Level 171H, Calcium Level 9.1, Corrected Calcium 9.1, Total Bilirubin 0.2, Aspartate Amino Transf (AST/SGOT) 30, Alanine Aminotransferase (ALT/SGPT) 45, Alkaline Phosphatase 79, Troponin I < 0.028, Total Protein 6.9, Albumin 4.0, Triglycerides Level 199H, Cholesterol Level 179, LDL Cholesterol Direct 109, VLDL Cholesterol 40, HDL Cholesterol 39L Assessment/Plan Assessment/Plan Assessment/Plan Chest pain Dysphagia Shortness of breath NPO Plan for barium swallow Clinical Quality Measures AMI/AHF: ASA po Prior to arrival: NETTIE Nur DO 01/16/22 1706: History of Present Illness History of Present Illness History of Present Illness Consult requested by Dr. Quiles for possible esophageal stricture. Patient is a 51-year-old female known to me. She has had longstanding GERD and dysphagia symptoms. She states that these of been continuing may be slightly gotten worse over the past few years. Patient states that she came in because of chest pain that radiated to her left upper back shoulder and ribs. She states her pain is a 6 out of 10 currently. Patient has been having dry heaves. Patient states her GERD and dysphagia symptoms the same as they have been. She states that she also has had her oxygenation low. Patient has had some nausea. She denies any emesis fever sweats chills. Allergies and Home Medications Allergies Coded Allergies: Sulfa (Sulfonamide Antibiotics) (Verified Allergy, Unknown, 02/08/20) famotidine (Verified Allergy, Unknown, dry heaves, 02/08/20) hydrocodone (Verified Allergy, Unknown, itching. Pt has received hydromorphone w/o issue, 02/07/20) NOTE: Patient has taken Percocet and Lortab as home meds as recent as 12/25/17 ketorolac (Unverified Allergy, Unknown, 02/07/20) ketorolac tromethamine (Verified Allergy, Unknown, 02/07/20) levofloxacin (Unverified Allergy, Unknown, 02/07/20) GIVES HER THRUSH nitrofurantoin (Unverified Allergy, Unknown, 02/07/20) ondansetron (Verified Allergy, Unknown, 02/07/20) tramadol (Unverified Allergy, Unknown, 02/07/20) codeine (Unverified Adverse Reaction, Unknown, 02/07/20) Patient Home Medication List Home Medication List Reviewed: Yes Alprazolam (Alprazolam) 1 Mg Tablet, 2 MG PO HS, (Reported) Entered as Reported by: ANEL RICH on 10/21/171219 Last Action: Reviewed Amlodipine Besylate (Amlodipine Besylate) 2.5 Mg Tablet, 2.5 MG PO HS, (Reported) Entered as Reported by: ANEL RICH on 10/21/171219 Last Action: Reviewed Buspirone HCl (Buspirone HCl) 15 Mg Tablet, 15 MG PO TID, (Reported) Entered as Reported by: GUICHO GALVAN on 01/16/221117 Last Action: Reviewed Cefdinir (Cefdinir) 300 Mg Capsule, 300 MG PO BID, (Reported) Entered as Reported by: GUICHO GALVAN on 01/16/221117 Last Action: Reviewed Diclofenac Sodium (Diclofenac Sodium) 1 % Gel..gram., 2 GM TOP QID PRN for PAIN- BREAKTHROUGH, (Reported) Entered as Reported by: GUICHO GALVAN on 01/16/221117 Last Action: Reviewed Dicyclomine HCl (Dicyclomine HCl) 20 Mg Tablet, 20 MG PO QID PRN for GI SYMPTOMS, (Reported) Entered as Reported by: GUICHO GALVAN on 01/16/221117 Last Action: Reviewed Fluconazole (Fluconazole) 100 Mg Tablet, 100 MG PO DAILY, (Reported) Entered as Reported by: GUICHO GALVAN on 01/16/221117 Last Action: Edited Gabapentin (Neurontin) 300 Mg Capsule, 300 MG PO BID, (Reported) Entered as Reported by: GUICHO GALVAN on 01/16/221117 Last Action: Reviewed Metoprolol Tartrate (Metoprolol Tartrate) 100 Mg Tablet, 100 MG PO BID, (Reported) Entered as Reported by: SHAQUILLE FULTON on 06/20/211047 Last Action: Reviewed Nystatin (Nystatin) 100,000 Unit/Ml Oral.susp, 5 ML PO Q6H PRN for THRUSH, (Reported) Entered as Reported by: GUICHO GALVAN on 01/16/221117 Last Action: Reviewed Promethazine HCl (Promethazine Tablet) 25 Mg Tablet, 25 MG PO QID PRN for NAUSEA/VOMITING-2ND LINE, (Reported) Entered as Reported by: GUICHO GALVAN on 01/16/221117 Last Action: Reviewed Quetiapine Fumarate (Quetiapine Fumarate) 400 Mg Tablet, 600 MG PO HS, (Reported) Entered as Reported by: GUICHO GALVAN on 01/16/221117 Last Action: Reviewed Ropinirole HCl (Ropinirole HCl) 3 Mg Tablet, 3 MG PO HS, (Reported) Entered as Reported by: GUICHO GALVAN on 01/16/221117 Last Action: Reviewed Rosuvastatin Calcium (Rosuvastatin Calcium) 10 Mg Tablet, 10 MG PO HS, (Reported) Entered as Reported by: GUICHO GALVAN on 01/16/221117 Last Action: Reviewed Trazodone HCl (Trazodone HCl) 150 Mg Tablet, 300 MG PO HS, (Reported) Entered as Reported by: SHAQUILLE FULTON on 06/20/211047 Last Action: Reviewed Discontinued Medications Cefdinir (Cefdinir) 300 Mg Capsule, 300 MG PO BID Discontinued Reason: No Longer Taking Prescribed by: KELY WIGGINS on 01/07/22 1153 Last Action: Discontinued Gabapentin (Gabapentin) 800 Mg Tablet, 900 MG PO DAILY, (Reported) Discontinued Reason: No Longer Taking Entered as Reported by: SHAQUILLE FULTON on 06/20/211047 Last Action: Discontinued Naproxen Sodium (Aleve) 220 Mg Tablet, 220 MG PO, (Reported) Discontinued Reason: No Longer Taking Entered as Reported by: BILLIE HULL on 01/04/20 0635 Last Action: Discontinued Oxycodone HCl/Acetaminophen (Oxycodone-Acetaminophen 5-325) 5 Mg-325 Mg Tablet, 1 EACH PO Q6H PRN for PAIN-SEVERE Discontinued Reason: No Longer Taking Prescribed by: KELY WIGGINS on 01/07/22 1153 Last Action: Discontinued Pantoprazole Sodium (Pantoprazole Sodium) 40 Mg Tablet.dr, 40 MG PO DAILY, (Reported) Discontinued Reason: No Longer Taking Entered as Reported by: SHAQUILLE FULTON on 06/20/211047 Last Action: Discontinued Quetiapine Fumarate (Quetiapine Fumarate) 300 Mg Tablet, 300 MG PO DAILY, (Reported) Discontinued Reason: No Longer Taking Entered as Reported by: SHAQUILLE FULTON on 06/20/211047 Last Action: Discontinued Ropinirole HCl (Ropinirole HCl) 5 Mg Tablet, 5 MG PO HS, (Reported) Discontinued Reason: No Longer Taking Entered as Reported by: SHAQUILLE FULTON on 06/20/211047 Last Action: Discontinued Sucralfate (Sucralfate) 1 Gm Tablet, 1 GM PO UD, (Reported) Discontinued Reason: No Longer Taking Entered as Reported by: SHAQUILLE FULTON on 06/20/211047 Last Action: Discontinued Tamsulosin HCl (Flomax) 0.4 Mg Cap, 0.4 MG PO DAILY Discontinued Reason: No Longer Taking Prescribed by: BILLIE HULL on 02/08/20 0931 Last Action: Discontinued Tamsulosin HCl (Flomax) 0.4 Mg Cap, 0.4 MG PO DAILY Discontinued Reason: No Longer Taking Prescribed by: KELY WIGGINS on 01/07/221152 Last Action: Discontinued Past Emteggx-Qhpbup-Rytezq Hx Reviewed Nursing Assessment Reviewed/Agree w Nursing PMH: Yes Family Medical History Significant Family History: Heart Disease Family Medial History: Dementia 19 FATHER Family history: Cardiovascular disease 19 FATHER Family history: Diabetes mellitus G8 SISTER Family history: Hypertension 19 FATHER 19 MOTHER History of - respiratory disease 19 MOTHER Seizure disorder G8 SISTER No Family History of: Abdominal aortic aneurysm [place]'s disease Alcoholism Aphasia Cancer Cancer of colon Cataract Chest pain Congenital heart disease Congestive heart failure Cystic fibrosis Family history: Osteoporosis Family history: Thyroid disorder Headache Hearing loss Heart disease Hereditary disease History of - anemia History of - disorder History of drug abuse Human immunodeficiency virus (HIV) seropositivity Hypercholesterolemia Infertile Kidney disease Malignant neoplasm of lung Myocardial infarction Parkinson's disease Prostate cancer Psychotic disorder Stroke Tuberculosis Visual impairment Review of Systems-General Constitutional: No chills, No diaphoresis EENTM: No ear discharge, No ear pain Respiratory: No cough, No dyspnea on exertion Cardiovascular: chest pain; No edema Gastrointestinal: No abdominal pain, No diarrhea; nausea; No vomiting Genitourinary: No decreased output, No discharge Musculoskeletal: back pain; No gout, No joint pain Skin: No change in color, No change in hair/nails Psychiatric/Neurological: Denies Anxiety, Denies Depressed All Other Systems Reviewed Negative Unless Noted: Yes (Negative excepted noted.) Physical Exam-General Problems Physical Exam General Appearance: WD/WN, no apparent distress HEENT: PERRL/EOMI, normal ENT inspection Neck: non-tender, supple Respiratory: chest non-tender, no respiratory distress, no accessory muscle use Cardiovascular: no edema, no JVD Gastrointestinal: non tender, soft, no organomegaly Rectal: deferred Back: normal inspection, no CVA tenderness Extremities: normal range of motion, normal inspection Neurologic/Psychiatric: alert, normal mood/affect Skin: normal color, warm/dry Lymphatic: no adenopathy Assessment/Plan Assessment/Plan Assessment/Plan Chest pain Dysphagia/GERD Shortness of breath NPO currently can have clears Plan for barium swallow to evaluate for stricture tomorrow. Protonix Supervisory-Addendum Brief Verification & Attestation Participated in pt care: history, MDM, physical Personally performed: exam, history, MDM, supervision of care Care discussed with: Medical Student Procedures: n/a Results interpretation: Verified all documentation Verification and Attestation of Medical Student E/M Service A medical student performed and documented this service in my presence. I reviewed and verified all information documented by the medical student and made modifications to such information, when appropriate. I personally performed the physical exam and medical decision making. Nettie Hahn, Jan 16, 2022,17:06 YAYA MONAHAN Jan 16, 2022 13:42 NETTIE HAHN DO Jan 16, 2022 17:06
[2022-01-16] MEDS ORDERED: hydrALAZINE (APESOLINE) 20 MG/ML VIAL IV PRN (13:45)
[2022-01-16] MEDS ORDERED: amLODIPine 10 MG (NORVASC) TAB PO NR (14:00)
[2022-01-16] MEDS ORDERED: meTOprolol TARTRATE 50 MG (LOPRESSOR) TAB PO NR (14:00)
[2022-01-16] MEDS: NS IV 1000 ML 1,000 ML IV SCH (14:19)
--- NOTE | 2022-01-16 18:55 | History & Physical-Hospitalist ---
History of Present Illness HPI/Chief Complaint Pattie Orozco is a 51 year old female with PMH HTN, HLD, GERD, hiatal hernia s/p repair, IBS, obesity, who presented with chest pain. She points to the right side of her chest and says it goes through to her back. It is worse with inspiration. She is not short of breath. She denies cough. She denies palpitations. She has had some trouble swallowing. She denies abdominal pain, nausea, vomiting, and diarrhea. Source: patient Exam Limitations: no limitations Date Seen 01/16/22 Time Seen by a Provider: 09:40 Attending Physician Rolando Brooks MD PCP Admitting Physician: Chana Navarro DO Attending Physician: Lindsey Do MD Referring Physician Date of Admission Jan 15, 2022 at 20:27 Home Medications & Allergies Home Medications Reviewed patient Home Medication Reconciliation performed by pharmacy medication reconciliations dietetic technician and/or nursing. Patients Allergies have been reviewed. Allergies Allergies Coded Allergies Sulfa (Sulfonamide Antibiotics) (Verified Allergy, Unknown, 02/08/20) famotidine (Verified Allergy, Unknown, dry heaves, 02/08/20) hydrocodone (Verified Allergy, Unknown, itching. Pt has received hydromorphone w/o issue, 02/07/20) NOTE: Patient has taken Percocet and Lortab as home meds as recent as 12/25/17 ketorolac (Unverified Allergy, Unknown, 02/07/20) ketorolac tromethamine (Verified Allergy, Unknown, 02/07/20) levofloxacin (Unverified Allergy, Unknown, 02/07/20) GIVES HER THRUSH nitrofurantoin (Unverified Allergy, Unknown, 02/07/20) ondansetron (Verified Allergy, Unknown, 02/07/20) tramadol (Unverified Allergy, Unknown, 02/07/20) codeine (Unverified Adverse Reaction, Unknown, 02/07/20) Past Kjkrugv-Fbcuno-Hovdrz Hx Patient Social History Marrital Status: Tobacco Use?: No Smoking Status: Never a Smoker Use of E-Cig and/or Vaping dev: No Substance use?: No Alcohol Use?: No Pt feels they are or have been: No Immunizations Up To Date Date of Influenza Vaccine: Mar 16, 2021 First/Initial COVID19 Vaccinat: 2020 Second COVID19 Vaccination [place]: 2020 Tetanus Booster (TDap): Unknown PED Vaccines UTD: No Date of Pneumonia Vaccine: Mar 01, 2013 Seasonal Allergies Seasonal Allergies: Yes (MILD) Current Status status: No Advance Directives: No Communicates: Verbally Primary Language: Trinidadian Preferred Spoken Language: Trinidadian Is interpretation needed?: No Past Medical History Surgeries: Abdominal, Appendectomy, Bladder Surgery, Breast, Gallbladder, Hysterectomy, Oophorectomy, Renal, Tonsillectomy, Tubal Ligation Asthma, Pneumonia, Chronic Bronchitis, Sleep Apnea Currently Using CPAP: Yes Currently Using BIPAP: No High Cholesterol, Hypertension, Irregular Heartbeat Headaches /Migraines, Seizure Disorder [employer] History: Hysterectomy, Menopausal Sexually Transmitted Disease: No HIV/AIDS: No Bladder Infection, Kidney Stones, Renal Failure, UTI-Chronic Gastroesophageal Reflux, Pancreatitis, Chronic Diarrhea, Hiatal Hernia, Irritab le Bowel Fibromyalgia, Chronic Back Pain Loss of Vision: Bilateral Hearing Impairment: Denies Vaginal Did You Recieve Any Treatments: Yes What Type of Treatment Did You: Surgical Intervention Anxiety, Depression Blood Disorders: No Adverse Reaction/Blood Tranf: No (HAS HAD BLOOD WITH NO REACTION) PMHx: HTN Nephrolithiasis Chronic pain HLD Anxiety Mood disorder PSurgHx: Cholecystectomy Tubal Ligation Hysterectomy Tonsillectomy Carpal tunnel release Breast reduction Bladder sling Family Medical History Dementia 19 FATHER Family history: Cardiovascular disease 19 FATHER Family history: Diabetes mellitus G8 SISTER Family history: Hypertension 19 FATHER 19 MOTHER History of - respiratory disease 19 MOTHER Seizure disorder G8 SISTER No Family History of: Abdominal aortic aneurysm Jatinder's disease Alcoholism Aphasia Cancer Cancer of colon Cataract Chest pain Congenital heart disease Congestive heart failure Cystic fibrosis Family history: Osteoporosis Family history: Thyroid disorder Headache Hearing loss Heart disease Hereditary disease History of - anemia History of - disorder History of drug abuse Human immunodeficiency virus (HIV) seropositivity Hypercholesterolemia Infertile Kidney disease Malignant neoplasm of lung Myocardial infarction Parkinson's disease Prostate cancer Psychotic disorder Stroke Tuberculosis Visual impairment Heart Disease PSH: -CHOLECYSTECTOMY -APPENDECTOMY -LAP GABY FUNDOPLICATION -BILATERAL TUBAL LIGATION -LAPAROSCOPIES FOR OVARIAN CYSTS -HYSTERECTOMY/BILATERAL SALPINGO-OOPHORECTOMY -CYSTOSCOPIES AND URETHRAL DILATIONS -LITHOTRIPSY -CYSTOSCOPY WITH KIDNEY STONE REMOVAL -TONSILLECTOMY/ADENOIDECTOMY -BREAST REDUCTION Review of Systems Constitutional: no symptoms reported EENTM: no symptoms reported Respiratory: no symptoms reported Cardiovascular: chest pain Gastrointestinal: dysphagia Genitourinary: no symptoms reported Physical Exam Physical Exam Vital Signs Vital Signs - First Documented 01/15/22 01/15/22 01/15/22 17:22 22:16 23:14 Temp 36.5 Pulse 86 Resp 17 B/P (MAP) 180/105 (130) Pulse Ox 94 O2 Delivery Room Air O2 Flow Rate 2.00 FiO2 21 Capillary Refill : Less Than 3 Seconds Height, Weight, BMI Height: 5'1.00" Weight: 162lbs. 0.0oz. [id number]; 31.56 BMI Method:Stated General Appearance: No Apparent Distress, Obese HEENT: PERRL/EOMI, Pharynx Normal Neck: Normal Inspection, Supple Respiratory: No Chest Non Tender; Lungs Clear, Normal Breath Sounds, No Respiratory Distress Cardiovascular: Regular Rate, Rhythm, No Edema, No Murmur Gastrointestinal: Normal Bowel Sounds, Non Tender, Soft Extremity: Normal Inspection, No Pedal Edema Neurologic/Psychiatric: Alert, Normal Mood/Affect Skin: Normal Color, Warm/Dry Results Results/Procedures Labs Laboratory Tests 01/15/22 18:00 01/16/22 05:00 Patient resulted labs reviewed. Imaging: Reviewed Imaging Report Assessment/Plan Admission Diagnosis Chest pain Admission Status: Observation Assessment and Plan Chest pain Dysphagia History of hiatal hernia Cardiology consulted Troponin negative Negative stress test 2020 Echo with normal EF, grade I diastolic dysfunction Chest xray with no acute abnormalities Surgery consulted Planning for barium swallow tomorrow to evaluate for stricture HTN HLD RLS Anxiety Insomnia Continue home meds DVT prophylaxis: Lovenox Diagnosis/Problems Diagnosis/Problems (1) Chest pain Status: Acute (2) GERD (gastroesophageal reflux disease) Status: Acute (3) Dysphagia Status: Acute (4) HTN (hypertension) Status: Acute Clinical Quality Measures AMI/AHF: ASA po Prior to arrival: LINDSEY Bacon MD Jan 16, 2022 18:55
[2022-01-16] MEDS: ENOXAPARIN 40 MG/0.4 ML (LOVENOX) SYR SC SCH (20:00)
[2022-01-16] MEDS: meTOprolol TARTRATE 50 MG (LOPRESSOR) TAB PO SCH (20:01)
[2022-01-16] MEDS ORDERED: QUEtiapine 200 MG (SEROquel) TAB IMMEDIATE RELEASE PO SCH (21:00)
[2022-01-16] MEDS ORDERED: ROSUVASTATIN 10 MG (CRESTOR) TABLET PO SCH (21:00)
[2022-01-16] MEDS ORDERED: MONTELUKAST 10 MG (SINGULAIR) TAB PO SCH (21:00)
[2022-01-16] MEDS ORDERED: rOPINIRole 5 MG TAB (REQUIP) PO SCH (21:00)
[2022-01-16] MEDS ORDERED: traZODone 150 MG (DESYREL) TABLET PO SCH (21:00)
[2022-01-16] MEDS: GABAPENTIN 300 MG (NEURONTIN) CAP PO SCH (23:17)
[2022-01-16] MEDS: busPIRone 15 MG (BUSPAR) TABLET PO SCH (23:18)
[2022-01-17] VITALS: BP 106/68
[2022-01-17] MEDS: RT-ALBUTEROL SULF 2.5 MG/3 ML PRE-MIX VIAL INH SCH (02:56)
[2022-01-17] MEDS: PROMETHAZINE INJ 25 MG/ML (PHENERGAN) AMP IVP PRN ×2 (03:55→08:42)
[2022-01-17 04:00] VITALS: BP 139/84
[2022-01-17] MEDS: methylPREDNISolone 40 MG/ML (Solu-MEDROL) VIAL IV SCH (06:00)
--- NOTE | 2022-01-17 06:47 | Progress Note - Surgery ---
ADRIANAVICTORINOYAYA Gant 01/17/22 0647: Subjective Date Seen by a Provider: Jan 17, 2022 Time Seen by a Provider: 06:42 Subjective/Events-last exam Pt is resting comfortably in bed. Pt states that her CP has improved from yesterday and rates its a 5/10. Pt denies any dysphagia overnight and states that she was able to tolerate clears and swallow pills without difficulty. Pt states that she experience some nausea but no dry heaving this morning. Pt notes that she is still experiencing SOB. Pt denies vomiting, diarrhea, and new abd pain. Review of Systems General: No Chills, No Night Sweats HEENT: No Visual Changes, No Eye Pain Pulmonary: Dyspnea; No Cough Cardiovascular: Chest Pain; No: Edema, Lt Headedness Gastrointestinal: Nausea; No: Vomiting, Abdominal Pain, Diarrhea Genitourinary: No Dysuria, No Frequency Musculoskeletal: shoulder pain, back pain; No: neck pain Neurological: No: Weakness, Numbness Objective Exam Vital Signs Date Time Temp Pulse Resp B/P (MAP) Pulse Ox O2 Delivery O2 Flow Rate FiO2 01/17/22 04:00 75 19 139/84 (102) 92 Nasal Cannula 3.00 01/17/22 03:38 Nasal Cannula 3.00 01/17/22 01:00 79 01/17/22 00:00 Nasal Cannula 3.00 01/17/22 00:00 87 23 106/68 (81) 90 Nasal Cannula 3.00 01/16/22 21:11 89 Room Air 4.00 01/16/22 20:08 36.5 95 18 126/79 (95) 93 Nasal Cannula 3.00 01/16/22 19:26 Nasal Cannula 3.00 01/16/22 19:00 96 01/16/22 16:00 36.1 89 17 120/73 (89) 93 Nasal Cannula 3.00 01/16/22 15:23 Nasal Cannula 3.00 01/16/22 15:16 90 Nasal Cannula 4.00 01/16/22 15:04 Nasal Cannula 3.00 01/16/22 13:00 84 01/16/22 12:00 88 22 185/107 (133) 94 Nasal Cannula 2.00 01/16/22 11:53 35.8 01/16/22 11:00 Nasal Cannula 2.00 8/18/22 08:00 80 19 154/100 (118) 90 Nasal Cannula 2.00 01/16/22 07:33 36.0 01/16/22 07:29 94 Nasal Cannula 3.00 01/16/22 07:00 Nasal Cannula 2.00 01/16/22 07:00 75 I & O 01/17/22 07:00 Intake Total 300 ml Balance 300 ml Capillary Refill : Less Than 3 Seconds General Appearance: No Apparent Distress, Obese HEENT: PERRL/EOMI, Pharynx Normal Neck: Normal Inspection, Supple Respiratory: No Chest Non Tender; Lungs Clear, Normal Breath Sounds, No Respiratory Distress Cardiovascular: Regular Rate, Rhythm, No Edema, No Murmur Gastrointestinal: soft, no organomegaly Extremity: Normal Inspection, No Pedal Edema Neurologic/Psychiatric: Alert, Normal Mood/Affect Skin: Normal Color, Warm/Dry Lymphatic: No Adenopathy Assessment/Plan Assessment/Plan Assessment/Plan Chest pain Dysphagia/GERD Shortness of breath NPO Plan for barium swallow to evaluate for stricture this morning. Protonix Clinical Quality Measures AMI/AHF: ASA po Prior to arrival: NETTIE Nur DO 01/17/22 1244: Subjective Subjective/Events-last exam Patient feeling better today. Symptoms improving. Off oxygen and O2 sat improving. No chest or abdominal pain at this time. Barium swallow no stricture, small paraesophageal hernia. Objective Exam General Appearance: No Apparent Distress, Obese HEENT: PERRL/EOMI, Normal ENT Inspection Neck: Normal Inspection, Supple Respiratory: Chest Non Tender, No Accessory Muscle Use, No Respiratory Distress Cardiovascular: Regular Rate, Rhythm, No JVD Gastrointestinal: soft, no organomegaly Extremity: Normal Inspection, No Pedal Edema Neurologic/Psychiatric: Alert, Normal Mood/Affect Skin: Normal Color, Warm/Dry Lymphatic: No Adenopathy Assessment/Plan Assessment/Plan Assessment/Plan Chest pain Dysphagia/GERD Shortness of breath start clears and advance as tolerates no sticture has paraesophageal hernia small Protonix consider adding carafate Supervisory-Addendum Brief Verification & Attestation Participated in pt care: history, MDM, physical Personally performed: exam, history, MDM, supervision of care Care discussed with: Medical Student Procedures: n/a Results interpretation: Verified all documentation Verification and Attestation of Medical Student E/M Service A medical student performed and documented this service in my presence. I reviewed and verified all information documented by the medical student and made modifications to such information, when appropriate. I personally performed the physical exam and medical decision making. Nettie Hahn, Jan 17, 2022,12:44 YAYA MONAHAN Jan 17, 2022 06:47 NETTIE HAHN DO Jan 17, 2022 12:44
[2022-01-17 06:53] LABS: POTASSIUM 4.7 MMOL/L (3.6-5.0)
[2022-01-17 06:54] LABS: CALCIUM 9.7 MG/DL (8.5-10.1)
[2022-01-17 06:55] LABS: TOTAL PROTEIN 7.5 GM/DL (6.4-8.2)
[2022-01-17 06:57] LABS: BILIRUBIN,TOTAL 0.3 MG/DL (0.1-1.0)
[2022-01-17 06:59] LABS: CREATININE SERUM 0.82 MG/DL (0.60-1.30)
[2022-01-17 08:00] VITALS: BP 122/78
[2022-01-17 08:13] VITALS: BP 139/84
[2022-01-17 08:22] LABS: BASOPHILS % (AUTO) 0 % (0-10); EOSINOPHILS % (AUTO) 0 % (0-10); HEMATOCRIT 40 % (35-52); HEMOGLOBIN 13.1 g/dL (11.5-16.0); LYMPHOCYTES # (AUTO) 1.3 10^3/uL (1.0-4.0); LYMPHOCYTES % (AUTO) 11 % (12-44); MEAN CORPUSCULAR HEMOGLOBIN 29 pg (25-34); MEAN CORPUSCULAR HGB CONC 33 g/dL (32-36); MEAN CORPUSCULAR VOLUME 87 fL (80-99); MEAN PLATELET VOLUME 11.4 fL (9.0-12.2); MONOCYTES # (AUTO) 0.6 10^3/uL (0.0-1.0); MONOCYTES % (AUTO) 5 % (0-12); NEUTROPHILS % (AUTO) 84 % (42-75); PLATELET COUNT 163 10^3/uL (130-400); WHITE BLOOD COUNT 11.9 10^3/uL (4.3-11.0)
--- NOTE | 2022-01-17 08:46 | Tele-ICU Progress Note ---
Subjective Date Seen by a Provider: Jan 16, 2022 Time Seen by a Provider: 11:00 Subjective/Events-last exam Patient is step-down status (not ICU) Video assessment done , Hemodynamically stable Available charting reviewed, discussed with RN NO TELE-ICU CONSULT REQUESTED CONTINUE TO MONITOR PER USUAL TELE-ICU PRO TOCOL No need for Tele-ICU interventions Plans as delineated by bedside physicians / consultants Sepsis Event Evaluation Height, Weight, BMI Height: 5'1.00" Weight: 162lbs. 0.0oz. 73.206621jh; 31.56 BMI Method:Stated Exam Exam Patient acknowledged, consented, and participated in this virtual visit which was conducted using real time audio/video Vital Signs Date Time Temp Pulse Resp B/P (MAP) Pulse Ox O2 Delivery O2 Flow Rate FiO2 01/17/22 08:13 72 92 32 01/17/22 08:00 68 16 122/78 (93) 91 Nasal Cannula 3.00 01/17/22 07:00 72 01/17/22 04:00 75 19 139/84 (102) 92 Nasal Cannula 3.00 01/17/22 03:38 Nasal Cannula 3.00 01/17/22 01:00 79 01/17/22 00:00 Nasal Cannula 3.00 01/17/22 00:00 87 23 106/68 (81) 90 Nasal Cannula 3.00 01/16/22 21:11 89 Room Air 4.00 01/16/22 20:08 36.5 95 18 126/79 (95) 93 Nasal Cannula 3.00 01/16/22 19:26 Nasal Cannula 3.00 01/16/22 19:00 96 01/16/22 16:00 36.1 89 17 120/73 (89) 93 Nasal Cannula 3.00 01/16/22 15:23 Nasal Cannula 3.00 01/16/22 15:16 90 Nasal Cannula 4.00 01/16/22 15:04 Nasal Cannula 3.00 01/16/22 13:00 84 01/16/22 12:00 88 22 185/107 (133) 94 Nasal Cannula 2.00 01/16/22 11:53 35.8 01/16/22 11:00 Nasal Cannula 2.00 I & O 01/17/22 07:00 Intake Total 800 ml Balance 800 ml Height & Weight Height: 5'1.00" Weight: 162lbs. 0.0oz. 73.400284nj; 31.56 BMI Method:Stated General Appearance: No Apparent Distress, Obese HEENT: PERRL/EOMI, Pharynx Normal Neck: Normal Inspection, Supple Respiratory: No Chest Non Tender; Lungs Clear, Normal Breath Sounds, No Respiratory Distress Cardiovascular: Regular Rate, Rhythm, No Edema, No Murmur Capillary Refill: Less Than 3 Seconds Gastrointestinal: soft, no organomegaly Extremity: Normal Inspection, No Pedal Edema Neurologic/Psychiatric: Alert, Normal Mood/Affect Skin: Normal Color, Warm/Dry Lymphatic: No Adenopathy Results Lab Laboratory Tests 01/15/22 18:00 01/16/22 05:00 01/17/22 04:55 01/17/22 08:16 Assessment/Plan Assessment/Plan 1 ROE MOTLEY MD Jan 17, 2022 08:46
[2022-01-17] MEDS: ASPIRIN E.C. 81 MG (ECOTRIN) TAB PO SCH (08:59)
[2022-01-17] MEDS: busPIRone 15 MG (BUSPAR) TABLET PO SCH (08:59)
[2022-01-17] MEDS: SENNOSIDES 8.6 MG (SENOKOT) TAB PO SCH (08:59)
[2022-01-17] MEDS: GABAPENTIN 300 MG (NEURONTIN) CAP PO SCH (08:59)
[2022-01-17] MEDS: DOCUSATE SODIUM 100 MG (COLACE) CAP PO SCH (08:59)
[2022-01-17] MEDS: meTOprolol TARTRATE 50 MG (LOPRESSOR) TAB PO SCH (09:00)
[2022-01-17] MEDS ORDERED: amLODIPine 5 MG (NORVASC) TAB PO SCH (09:00)
[2022-01-17] MEDS: LORATADINE (CLARITIN) 10 MG TAB PO SCH (09:00)
[2022-01-17] MEDS: NS IV 1000 ML 1,000 ML IV SCH (09:02)
--- NOTE | 2022-01-17 09:08 | Cardiology Progress Note ---
Progress Note-Cardiology Events since last exam Date Seen by Provider: Jan 17, 2022 Time Seen by Provider: 09:07 Events since last exam I am following her due to chest pain. Her chest discomfort has improved but not completely resolved. She still has intermittent midthoracic back pain. She denies dyspnea at rest. She denies palpitations, syncope, or ankle edema. She is scheduled for a barium swallow later this morning. Certain portions of this document may have been dictated utilizing voice recognition technology. Inherent to this technology, typographical and grammatical errors may exist. As much as I am diligent to identify and correct these mistakes, some errors may remain in the document. Vitals Last set of Vitals Signs Vital Signs 01/17/22 01/17/22 01/17/22 08:00 08:13 09:00 Temp 36.2 Pulse 77 Resp 19 B/P (MAP) 122/78 (93) Pulse Ox 91 O2 Delivery Nasal Cannula O2 Flow Rate 3.00 FiO2 32 Labs Labs Laboratory Tests 01/17/22 04:55 01/17/22 08:16 Exam Vital Signs Vital Signs Date Time Temp Pulse Resp B/P (MAP) Pulse Ox O2 Delivery O2 Flow Rate FiO2 01/17/22 09:00 77 19 91 Nasal Cannula 3.00 01/17/22 08:13 32 01/17/22 08:00 36.2 Physical Exam General: Alert. No acute distress. She is obese. Eye: No xanthelasma. HENT: Normocephalic. Neck: Jugular venous pressure does not appear elevated. Respiratory: Lungs are clear to auscultation. Respirations are non-labored. Breath sounds are equal. Symmetrical chest wall expansion. Cardiovascular: Normal rate. Regular rhythm. No murmur. No gallop. No edema. Gastrointestinal: Soft. Normal bowel sounds. Skin: Warm. Dry. Neurologic: Alert and oriented to person, place, time. Cranial nerves 3-11 grossly intact. Psychiatric: Cooperative. Appropriate mood & affect. Labs Laboratory Tests Test 01/17/22 04:55 01/17/22 08:16 Range/Units Sodium Level 140 135-145 MMOL/L Potassium Level 4.7 3.6-5.0 MMOL/L Chloride Level 109 H 98-107 MMOL/L Carbon Dioxide Level 17 L 21-32 MMOL/L Anion Gap 14 5-14 MMOL/L Blood Urea Nitrogen 9 7-18 MG/DL Creatinine 0.82 0.60-1.30 MG/DL Estimat Glomerular Filtration Rate 86 BUN/Creatinine Ratio 11 Glucose Level 152 H 70-105 MG/DL Calcium Level 9.7 8.5-10.1 MG/DL Corrected Calcium 9.7 8.5-10.1 MG/DL Total Bilirubin 0.3 0.1-1.0 MG/DL Aspartate Amino Transf (AST/SGOT) 25 5-34 U/L Alanine Aminotransferase (ALT/SGPT) 39 0-55 U/L Alkaline Phosphatase 71 40-136 U/L Total Protein 7.5 6.4-8.2 GM/DL Albumin 4.0 3.2-4.5 GM/DL White Blood Count 11.9 H 4.3-11.0 10^3/uL Red Blood Count 4.57 3.80-5.11 10^6/uL Hemoglobin 13.1 11.5-16.0 g/dL Hematocrit 40 35-52 % Mean Corpuscular Volume 87 80-99 fL Mean Corpuscular Hemoglobin 29 25-34 pg Mean Corpuscular Hemoglobin Concent 33 32-36 g/dL Red Cell Distribution Width 12.7 10.0-14.5 % Platelet Count 163 130-400 10^3/uL Mean Platelet Volume 11.4 9.0-12.2 fL Immature Granulocyte % (Auto) 1 % Neutrophils (%) (Auto) 84 H 42-75 % Lymphocytes (%) (Auto) 11 L 12-44 % Monocytes (%) (Auto) 5 0-12 % Eosinophils (%) (Auto) 0 0-10 % Basophils (%) (Auto) 0 0-10 % Neutrophils # (Auto) 10.0 H 1.8-7.8 10^3/uL Lymphocytes # (Auto) 1.3 1.0-4.0 10^3/uL Monocytes # (Auto) 0.6 0.0-1.0 10^3/uL Eosinophils # (Auto) 0.0 0.0-0.3 10^3/uL Basophils # (Auto) 0.0 0.0-0.1 10^3/uL Immature Granulocyte # (Auto) 0.1 0.0-0.1 10^3/uL Diagnosis/Problems Diagnosis/Problems (1) Chest pain Status: Acute Assessment & Plan: Exact etiology unclear. This sounds like noncardiac chest pain. She had 3 undetectable troponin levels and nonspecific findings on her electrocardiogram that are chronic. She just had a stress test in October 2020 that showed normal myocardial perfusion. Her echocardiogram from the day of admission did not show any structural heart disease to explain chest pain. Her D-dimer level was undetectable which suggest that this chest pain is unlikely to be due to pulmonary embolism. Given her dysphagia, I would question whether or not she may have an esophageal stricture and/or gastroesophageal reflux disease causing her chest pain. Additionally, she had previous injury to her thoracic spine and may have some musculoskeletal chest pain due to her chronic back pain. I do not see any indication for additional cardiac work-up at this time. She improved with the addition of proton pump inhibitor. From a cardiac standpoint, she can be discharged home. I have placed an order for the staff to get her a follow-up visit with me in the office in 1 month (2) Abnormal electrocardiogram Assessment & Plan: She has borderline abnormal electrocardiogram with anterolateral T wave changes which are chronic. No additional testing is i ndicated for this abnormality at this point in time. (3) Primary hypertension Assessment & Plan: Her blood pressure has been reasonably controlled on her ou tpatient antihypertensive medication. (4) Mixed hyperlipidemia Assessment & Plan: Continue statin medication. (5) Degenerative disc disease, thoracic Status: Chronic Assessment & Plan: As above, this could also be contributing to her chest pain. (6) History of repair of hiatal hernia Assessment & Plan: From her description, she had a previous hiatal hernia repair. Unclear whether or not this could be causing reflux that could then be leading to chest pain and/or development of esophageal stricture. As above, I have consulted general surgery he ordered a barium swallow. (7) Obesity Status: Chronic Assessment & Plan: She needs to work on weight loss. SABIHA FERREIRA JR, MD Jan 17, 2022 09:08
[2022-01-17] MEDS ORDERED: BARIUM for suspension 98% w/w (Vanilla Silq High Density) PO ONE ×2 (10:45→11:00)
[2022-01-17] MEDS ORDERED: BARIUM for suspension 96% w/w (Vanilla Silq Medium Density) PO ONE ×2 (10:45→11:00)
[2022-01-17] MEDS ORDERED: PRED10TA22 PO (10:58)
--- NOTE | 2022-01-17 11:00 | Diagnostic Imaging Report ---
INDICATION: Difficulty swallowing solids. TECHNIQUE: Patient ingested effervescent crystals as well as thin and thick barium and imaging of the esophagus was performed in multiple obliquities. A one-minute fluoroscopic time was utilized. FINDINGS: Preliminary radiograph of the chest shows some right perihilar and left midlung subsegmental atelectasis. Esophagus has a smooth contour. No mass or stricture is identified. There are occasional tertiary contractions present. Patient does have a small paraesophageal hiatal hernia. No gastroesophageal reflux was demonstrated. IMPRESSION: Small paraesophageal hiatal hernia. No other abnormalities are seen. Dictated by: Dictated on workstation # [id number]
[2022-01-17 13:44] VITALS: BP 139/84
[2022-01-17] MEDS ORDERED: ALPRAZolam 1 MG (XANAX) TAB PO SCH (21:00)
[2022-01-17] MEDS ORDERED: PANT40TA52 PO (21:43)
--- NOTE | 2022-01-17 22:02 | Discharge Summary ---
Discharge Summary Hospital Course Problems/Dx: (1) Chest pain Status: Acute (2) Abnormal electrocardiogram (3) Primary hypertension (4) Mixed hyperlipidemia (5) Degenerative disc disease, thoracic Status: Chronic (6) History of repair of hiatal hernia (7) Obesity Status: Chronic (8) GERD (gastroesophageal reflux disease) Status: Acute Hospital Course Date of Admission: Jan 15, 2022 at 20:27 Admission Diagnosis : Chest pain Family Physician/Provider: Jessica Dai Aprn Date of Discharge: 01/17/22 Discharge Diagnosis: Chest pain, GERD Hospital Course: Pattie Orozco is a 51 year old female with PMH HTN, HLD, osteoarthritis, history of hiatal hernia repair, obesity, who presented with chest pain. Cardiology was consulted and assisted with her care. Her troponins and EKG remained negative. She had a normal cardiac stress test in 2020. She had an echo which was unrevealing. She was evaluated by surgery with concern for possible esophageal stricture. She underwent a barium swallow which was negative. She was started on Protonix. She was also given a course of steroids for reactive airway disease. She was discharged home in stable condition. Labs and Pending Lab Test: Laboratory Tests 01/17/22 04:55: Sodium Level 140, Potassium Level 4.7, Chloride Level 109H, Carbon Dioxide Level 17L, Anion Gap 14, Blood Urea Nitrogen 9, Creatinine 0.82, Estimat Glomerular Filtration Rate 86, BUN/Creatinine Ratio 11, Glucose Level 152H, Calcium Level 9.7, Corrected Calcium 9.7, Total Bilirubin 0.3, Aspartate Amino Transf (AST/SGOT) 25, Alanine Aminotransferase (ALT/SGPT) 39, Alkaline Phosphatase 71, Total Protein 7.5, Albumin 4.0 01/17/22 08:16: White Blood Count 11.9H, Red Blood Count 4.57, Hemoglobin 13.1, Hematocrit 40, Mean Corpuscular Volume 87, Mean Corpuscular Hemoglobin 29, Mean Corpuscular Hemoglobin Concent 33, Red Cell Distribution Width 12.7, Platelet Count 163, Mean Platelet Volume 11.4, Immature Granulocyte % (Auto) 1, Neutrophils (%) (Auto) 84H, Lymphocytes (%) (Auto) 11L, Monocytes (%) (Auto) 5, Eosinophils (%) (Auto) 0, Basophils (%) (Auto) 0, Neutrophils # (Auto) 10.0H, Lymphocytes # (Auto) 1.3, Monocytes # (Auto) 0.6, Eosinophils # (Auto) 0.0, Basophils # (Auto) 0.0, Immature Granulocyte # (Auto) 0.1 Home Meds Active Prednisone 10 Mg Tab.ds.pk 10 Mg PO DAILY Take 6 tabs(60mg)daily,decrease by 1 tab(10MG)daily. Reported Diclofenac Sodium 1 % Gel..gram. 2 Gm TOP QID PRN APPLY TO HIPS/LEGS/BACK Rosuvastatin Calcium 10 Mg Tablet 10 Mg PO HS Neurontin (Gabapentin) 300 Mg Capsule 300 Mg PO BID Quetiapine Fumarate 400 Mg Tablet 600 Mg PO HS TAKES 1 & (400MG) TABS Ropinirole HCl 3 Mg Tablet 3 Mg PO HS Dicyclomine HCl 20 Mg Tablet 20 Mg PO QID PRN Promethazine Tablet (Promethazine HCl) 25 Mg Tablet 25 Mg PO QID PRN Nystatin 100,000 Unit/Ml Oral.susp 5 Ml PO Q6H PRN SWISH, GARGLE AND SPIT Buspirone HCl 15 Mg Tablet 15 Mg PO TID Trazodone HCl 150 Mg Tablet 300 Mg PO HS TAKES 2 (300MG) TABS Metoprolol Tartrate 100 Mg Tablet 100 Mg PO BID LAST FILLED 11-22-2021 #60/30 DAY SUPPLY Amlodipine Besylate 2.5 Mg Tablet 2.5 Mg PO HS LAST FILLED 11-22-2021 #3030 DAY SUPPLY Alprazolam 1 Mg Tablet 2 Mg PO HS TAKES 2 (1MG) TABLETS Assessment/Pt Instructions See instructions Discharge Planning: <30 minutes discharge planning Discharge Instructions Discharge Diet: No Restrictions Activity as Tolerated: Yes Consultations CArdiology, Surgery Discharge Physical Examination Vital Signs Vital Signs Date Time Temp Pulse Resp B/P (MAP) Pulse Ox O2 Delivery O2 Flow Rate FiO2 01/17/22 13:44 36.2 77 19 139/84 91 Room Air 01/17/22 09:00 3.00 01/17/22 08:13 32 General Appearance: No Apparent Distress, Obese Respiratory: Lungs Clear, No Respiratory Distress Cardiovascular: Regular Rate, Rhythm, No Murmur Gastrointestinal: Normal Bowel Sounds, Soft Extremity: Normal Inspection, No Pedal Edema Skin: Normal Color, Warm/Dry Neurologic/Psychiatric: Alert, Normal Mood/Affect Allergies: Coded Allergies: Sulfa (Sulfonamide Antibiotics) (Verified Allergy, Unknown, 02/08/20) famotidine (Verified Allergy, Unknown, dry heaves, 02/08/20) hydrocodone (Verified Allergy, Unknown, itching. Pt has received hydromorphone w/o issue, 02/07/20) NOTE: Patient has taken Percocet and Lortab as home meds as recent as 12/25/17 ketorolac (Unverified Allergy, Unknown, 02/07/20) ketorolac tromethamine (Verified Allergy, Unknown, 02/07/20) levofloxacin (Unverified Allergy, Unknown, 02/07/20) GIVES HER THRUSH nitrofurantoin (Unverified Allergy, Unknown, 02/07/20) ondansetron (Verified Allergy, Unknown, 02/07/20) tramadol (Unverified Allergy, Unknown, 02/07/20) codeine (Unverified Adverse Reaction, Unknown, 02/07/20) Copy Copies To 1: MAGGIE COWAN MD Discharge Summary Date of Admission Jan 15, 2022 at 20:27 Date of Discharge Jan 17, 2022 at 12:15 Discharge Date: Jan 17, 2022 Discharge Time: 12:15 Admission Diagnosis Chest pain Consults/Procedures Consulations Cardiology, Surgery Discharge Diagnosis Chest pain Dysphagia GERD History of hiatal hernia HTN HLD RLS Anxiety Insomnia (1) Chest pain Status: Acute (2) Abnormal electrocardiogram (3) Primary hypertension (4) Mixed hyperlipidemia (5) Degenerative disc disease, thoracic Status: Chronic (6) History of repair of hiatal hernia (7) Obesity Status: Chronic (8) GERD (gastroesophageal reflux disease) Status: Acute Clinical Quality Measures AMI/AHF: ASA po Prior to arrival: ANA CRISTINA Bacon MD Jan 17, 2022 21:49
[2022-01-18] MEDS ORDERED: RT-ALBUTEROL SULF 2.5 MG/3 ML PRE-MIX VIAL INH SCH (08:30)
== END 2022-01-17 10:56 | disposition home or self-care (01) ==
LOC: EDUNIT# 17:19 → ER 17:21 → ICU 20:27 → UNDOADMOB 20:27 → ICU 23:00 → UNDODISOB 01-17 12:15
PROVIDERS: ADMIT Internal Medicine; ATTEND Internal Medicine
DX: R07.9 Chest pain, unspecified (principal); R94.31 Abnormal electrocardiogram [ECG] [EKG]; I10 Essential (primary) hypertension; E78.2 Mixed hyperlipidemia; E66.9 Obesity, unspecified; K21.9 Gastro-esophageal reflux disease without esophagitis; K44.9 Diaphragmatic hernia without obstruction or gangrene; M51.34 Other intervertebral disc degeneration, thoracic region
CPT/HCPCS: 71045; 74220; 80053 ×3; 80061; 83735; 83874; 83880; 84484 ×2; 85025 ×3; 85379; 85610; 85730; 87636; 93005 ×3; 93041; 93306; 94640; 96361 ×2; 96372 ×2; 96374; 96375 ×3; 96376 ×3; 99284; G0378; 36415

== ENCOUNTER 2022-02-01 18:30 | Emergency (ER) | payer MEDICARE ==
[~2022-02-01] VITALS: Ht 157.5 cm; Wt 76.2 kg
[~2022-02-01 18:30] MED LIST changes: +BUSP15TA60 PO; +DICL100G13 TOP; +DICY20TA PO; +FLUC100T10 PO; +PRED10TA22 PO; +ROPI3TAB4 PO
--- NOTE | 2022-02-01 18:57 | ED Back Pain ---
General Chief Complaint: Back Problems Stated Complaint: BACK PAIN/SPASMS Source of Information: Patient Exam Limitations: No Limitations History of Present Illness Date Seen by Provider: Feb 01, 2022 Time Seen by Provider: 18:36 Initial Comments Patient to the ER by private conveyance with chief complaint for the past 10 days been having some sharp left-sided back pain starts in the midline radiates to the left and also to the right. She had a kidney stone removed by Dr. Howell and at that time was told she also had some nonobstructing stones in her left kidney. She thinks maybe that was happening. He is not having any hematuria or dysuria. She is having some nausea with dry heaves and claims 7 pound weight loss since the . She saw her primary care provider yesterday and was told that they would just wait and see how this turned out. She was given a couple rounds of Percocet which did help with her pain but she has not had any today. She is 400 mg of ibuprofen 4 hours ago and felt like that helped a little bit. She says Toradol makes her break out in hives. Zofran makes her break out in hives. Pepcid makes her have nausea and vomiting. She has a history of IBS. She has had no fever but claims a few chills. She rates her pain presently as a 7 out of 10. Patient was just discharged from the hospital January 17, 2022 after being admitted 2 days prior with a history of chest pain, negative troponin and negative EKG. She was having intermittent mid thoracic back pain at that time. She had a barium swallow done. Etiology was unclear. She had a normal stress test a year ago in 2020. Echocardiogram had no structural heart disease. D- dimer was undetectable. Concern was for a GI source of her discomfort. She has a history of previous injury to thoracic spine. She has a history of hiatal hernia repair. Barium swallow was unremarkable. Small paraesophageal hiatal hernia seen. Allergies and Home Medications Allergies Coded Allergies: Sulfa (Sulfonamide Antibiotics) (Verified Allergy, Unknown, 02/08/20) famotidine (Verified Allergy, Unknown, dry heaves, 02/08/20) hydrocodone (Verified Allergy, Unknown, itching. Pt has received hydromorphone w/o issue, 02/07/20) NOTE: Patient has taken Percocet and Lortab as home meds as recent as 12/25/17 ketorolac (Unverified Allergy, Unknown, 02/07/20) ketorolac tromethamine (Verified Allergy, Unknown, 02/07/20) levofloxacin (Unverified Allergy, Unknown, 02/07/20) GIVES HER THRUSH nitrofurantoin (Unverified Allergy, Unknown, 02/07/20) ondansetron (Verified Allergy, Unknown, 02/07/20) tramadol (Unverified Allergy, Unknown, 02/07/20) codeine (Unverified Adverse Reaction, Unknown, 02/07/20) Patient Home Medication List Home Medication List Reviewed: Yes Alprazolam (Alprazolam) 1 Mg Tablet, 2 MG PO HS, (Reported) Entered as Reported by: ANEL RICH on 10/21/17 1220 Amlodipine Besylate (Amlodipine Besylate) 2.5 Mg Tablet, 2.5 MG PO HS, (Reported) Entered as Reported by: ANEL RICH on 10/21/17 1220 Buspirone HCl (Buspirone HCl) 15 Mg Tablet, 15 MG PO TID, (Reported) Entered as Reported by: GUICHO GALVAN on 01/16/22 1118 Diclofenac Sodium (Diclofenac Sodium) 1 % Gel..gram., 2 GM TOP QID PRN for PAIN- BREAKTHROUGH, (Reported) Entered as Reported by: GUICHO GALVAN on 01/16/22 1118 Dicyclomine HCl (Dicyclomine HCl) 20 Mg Tablet, 20 MG PO QID PRN for GI SYMPTOMS, (Reported) Entered as Reported by: GUICHO GALVAN on 01/16/22 1118 Gabapentin (Neurontin) 300 Mg Capsule, 300 MG PO BID, (Reported) Entered as Reported by: GUICHO GALVAN on 01/16/22 1118 Metoprolol Tartrate (Metoprolol Tartrate) 100 Mg Tablet, 100 MG PO BID, (Reported) Entered as Reported by: SHAQUILLE FULTON on 06/20/21 1048 Nystatin (Nystatin) 100,000 Unit/Ml Oral.susp, 5 ML PO Q6H PRN for THRUSH, (Reported) Entered as Reported by: GUICHO GALVAN on 01/16/22 1118 Pantoprazole Sodium (Pantoprazole Sodium) 40 Mg Tablet.dr, 40 MG PO DAILY Prescribed by: ANA CRISTINA CHACKO on 01/17/222142 Prednisone (Prednisone) 10 Mg Tab.ds.pk, 10 MG PO DAILY Prescribed by: ANA CRISTINA CHACKO on 01/17/22 1058 Promethazine HCl (Promethazine Tablet) 25 Mg Tablet, 25 MG PO QID PRN for NAUSEA/VOMITING-2ND LINE, (Reported) Entered as Reported by: GUICHO GALVAN on 01/16/22 1118 Quetiapine Fumarate (Quetiapine Fumarate) 400 Mg Tablet, 600 MG PO HS, (Reported) Entered as Reported by: GUICHO GALVAN on 01/16/22 1118 Ropinirole HCl (Ropinirole HCl) 3 Mg Tablet, 3 MG PO HS, (Reported) Entered as Reported by: GUICHO GALVAN on 01/16/22 111 Rosuvastatin Calcium (Rosuvastatin Calcium) 10 Mg Tablet, 10 MG PO HS, (Reported) Entered as Reported by: GUICHO GALVAN on 01/16/22 1118 Trazodone HCl (Trazodone HCl) 150 Mg Tablet, 300 MG PO HS, (Reported) Entered as Reported by: SHAQUILLE FULTON on 06/20/21 1048 Review of Systems Constitutional: No chills, No diaphoresis EENTM: No ear discharge, No ear pain Respiratory: No cough, No short of breath Cardiovascular: No chest pain, No palpitations Gastrointestinal: No abdominal pain, No constipation, No diarrhea; nausea, vomiting Genitourinary: see HPI; No dysuria, No frequency, No hematuria Musculoskeletal: see HPI, back pain; No joint pain All Other Systems Reviewed Negative Unless Noted: Yes Past Lobnafu-Xzzpoc-Gidzgn Hx Patient Social History Tobacco Use?: No Use of E-Cig and/or Vaping dev: No Immunizations Up To Date Tetanus Booster (TDap): Unknown PED Vaccines UTD: No First/Initial COVID19 Vaccinat: 2020 Second COVID19 Vaccination [place]: 2020 Seasonal Allergies Seasonal Allergies: Yes (MILD) Past Medical History Surgery/Hospitalization HX: IBS, FIBROMYALGIA Surgeries: Yes (breast reduction;several cysto's with UD;lap gaby;LITHOT RIPSY/KIDNEY ST) Abdominal, Appendectomy, Bladder Surgery, Breast, Gallbladder, Hysterectomy, Oophorectomy, Renal, Tonsillectomy, Tubal Ligation Respiratory: Yes (MILD ASTHMA RELATED TO SEASONAL ALLERGIES) Asthma, Pneumonia, Chronic Bronchitis, Sleep Apnea Currently Using CPAP: Yes Currently Using BIPAP: No Cardiac: Yes (TACHYCARDIA) High Cholesterol, Hypertension, Irregular Heartbeat Neurological: Yes (LAST SEIZURE 07/2017) Headaches /Migraines, Seizure Disorder Reproductive Disorders: Yes 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 Problems, Ovarian Cyst [employer] History: Hysterectomy, Menopausal Sexually Transmitted Disease: No HIV/AIDS: No Genitourinary: Yes (INCONTINENCE;LITHOTRIPSY/KIDNEY STONE REMOVAL) Bladder Infection, Kidney Stones, Renal Failure, UTI-Chronic Gastrointestinal: Yes (S/P HIATAL HERNIA REPAIR) Gastroesophageal Reflux, Pancreatitis, Chronic Diarrhea, Hiatal Hernia, Irritable Bowel Musculoskeletal: Yes Fibromyalgia, Chronic Back Pain Endocrine: No HEENT: No Loss of Vision: Bilateral Hearing Impairment: Denies Cancer: Yes Vaginal Did You Recieve Any Treatments: Yes What Type of Treatment Did You: Surgical Intervention Psychosocial: Yes (EXTENSIVE PSYCH ISSUES) Anxiety, Depression Integumentary: No Blood Disorders: No Adverse Reaction/Blood Tranf: No (HAS HAD BLOOD WITH NO REACTION) Family Medical History Dementia 19 FATHER Family history: Cardiovascular disease 19 FATHER Family history: Diabetes mellitus G8 SISTER Family history: Hypertension 19 FATHER 19 MOTHER History of - respiratory disease 19 MOTHER Seizure disorder G8 SISTER No Family History of: Abdominal aortic aneurysm Hanover's disease Alcoholism Aphasia Cancer Cancer of colon Cataract Chest pain Congenital heart disease Congestive heart failure Cystic fibrosis Family history: Osteoporosis Family history: Thyroid disorder Headache Hearing loss Heart disease Hereditary disease History of - anemia History of - disorder History of drug abuse Human immunodeficiency virus (HIV) seropositivity Hypercholesterolemia Infertile Kidney disease Malignant neoplasm of lung Myocardial infarction Parkinson's disease Prostate cancer Psychotic disorder Stroke Tuberculosis Visual impairment Heart Disease PSH: -CHOLECYSTECTOMY -APPENDECTOMY -LAP GABY FUNDOPLICATION -BILATERAL TUBAL LIGATION -LAPAROSCOPIES FOR OVARIAN CYSTS -HYSTERECTOMY/BILATERAL SALPINGO-OOPHORECTOMY -CYSTOSCOPIES AND URETHRAL DILATIONS -LITHOTRIPSY -CYSTOSCOPY WITH KIDNEY STONE REMOVAL -TONSILLECTOMY/ADENOIDECTOMY -BREAST REDUCTION Physical Exam Vital Signs Vital Signs - First Documented 02/01/22 18:41 Temp 36.6 Pulse 89 Resp 19 B/P (MAP) 141/99 (113) O2 Delivery Room Air Capillary Refill : Height, Weight, BMI Height: 5'1.00" Weight: 162lbs. 0.0oz. [id number]; 31.56 BMI Method:Stated General Appearance: No Apparent Distress, WD/WN HEENT: PERRL/EOMI, Pharynx Normal, Moist Mucous Membranes Neck: Full Range of Motion, Normal Inspection Cardiovascular: Regular Rate, Rhythm, No Edema, Normal Peripheral Pulses Respiratory: Chest Non Tender, Lungs Clear, Normal Breath Sounds Peripheral Pulses: 2+ Radial Pulses (R), 2+ Radial Pulses (L) Gastrointestinal: Normal Bowel Sounds, No Organomegaly Back: Normal Inspection, Other (Between the scapula the vertebrae are tender with some tenderness on her left paravertebral spine.) Extremity: Normal Capillary Refill, Normal Inspection Neurologic/Psychiatric: Alert, Oriented x3 Skin: Normal Color, Warm/Dry Progress/Results/Core Measures Results/Orders Lab Results Laboratory Tests Test 02/01/22 18:42 02/01/22 18:55 Range/Units Urine Color YELLOW Urine Clarity CLEAR Urine pH 5.5 5-9 Urine Specific Warren >=1.030 1.016-1.022 Urine Protein NEGATIVE NEGATIVE Urine Glucose (UA) NEGATIVE NEGATIVE Urine Ketones NEGATIVE NEGATIVE Urine Nitrite NEGATIVE NEGATIVE Urine Bilirubin NEGATIVE NEGATIVE Urine Urobilinogen 0.2 < = 1.0 MG/DL Urine Leukocyte Esterase NEGATIVE NEGATIVE Urine RBC (Auto) NEGATIVE NEGATIVE Urine RBC NONE /HPF Urine WBC RARE /HPF Urine Squamous Epithelial Cells RARE /HPF Urine Crystals PRESENT H /LPF Urine Calcium Oxalate Crystals FEW H /LPF Urine Bacteria NEGATIVE /HPF Urine Casts NONE /LPF Urine Mucus SMALL H /LPF Urine Culture Indicated NO White Blood Count 8.6 4.3-11.0 10^3/uL Red Blood Count 4.78 3.80-5.11 10^6/uL Hemoglobin 13.6 11.5-16.0 g/dL Hematocrit 41 35-52 % Mean Corpuscular Volume 85 80-99 fL Mean Corpuscular Hemoglobin 29 25-34 pg Mean Corpuscular Hemoglobin Concent 33 32-36 g/dL Red Cell Distribution Width 12.6 10.0-14.5 % Platelet Count 215 130-400 10^3/uL Mean Platelet Volume 11.1 9.0-12.2 fL Immature Granulocyte % (Auto) 0 % Neutrophils (%) (Auto) 74 42-75 % Lymphocytes (%) (Auto) 18 12-44 % Monocytes (%) (Auto) 7 0-12 % Eosinophils (%) (Auto) 1 0-10 % Basophils (%) (Auto) 1 0-10 % Neutrophils # (Auto) 6.4 1.8-7.8 10^3/uL Lymphocytes # (Auto) 1.5 1.0-4.0 10^3/uL Monocytes # (Auto) 0.6 0.0-1.0 10^3/uL Eosinophils # (Auto) 0.1 0.0-0.3 10^3/uL Basophils # (Auto) 0.0 0.0-0.1 10^3/uL Immature Granulocyte # (Auto) 0.0 0.0-0.1 10^3/uL Sodium Level 142 135-145 MMOL/L Potassium Level 4.5 3.6-5.0 MMOL/L Chloride Level 109 H 98-107 MMOL/L Carbon Dioxide Level 18 L 21-32 MMOL/L Anion Gap 15 H 5-14 MMOL/L Blood Urea Nitrogen 17 7-18 MG/DL Creatinine 1.01 0.60-1.30 MG/DL Estimat Glomerular Filtration Rate 67 BUN/Creatinine Ratio 17 Glucose Level 148 H 70-105 MG/DL Calcium Level 10.0 8.5-10.1 MG/DL Corrected Calcium 8.5-10.1 MG/DL Total Bilirubin 0.3 0.1-1.0 MG/DL Aspartate Amino Transf (AST/SGOT) 20 5-34 U/L Alanine Aminotransferase (ALT/SGPT) 33 0-55 U/L Alkaline Phosphatase 65 40-136 U/L C-Reactive Protein High Sensitivity 0.22 0.00-0.50 MG/DL Total Protein 7.8 6.4-8.2 GM/DL Albumin 4.6 H 3.2-4.5 GM/DL My Orders Orders - ERICK RAMOS Ua Culture If Indicated (02/01/22 18:42) Ed Iv/Invasive Line Start (02/01/22 18:51) Ns Iv 500 Ml (Sodium Chloride 0.9%) (02/01/22 19:00) Promethazine Injection (Phenergan Injec (02/01/22 19:00) Fentanyl Inj (Sublimaze Injection) (02/01/22 19:00) Cbc With Automated Diff (02/01/22 18:51) Comprehensive Metabolic Panel (02/01/22 18:51) Hs C Reactive Protein (02/01/22 18:51) Ct Abd/Pelvis Wo(Kidney Stone) (02/01/22 18:51) Medications Given in ED Current Medications Medications Dose Ordered Sig/Tk Route Start Time Stop Time Status Last Admin Dose Admin Fentanyl Citrate 50 mcg ONCE ONCE IVP 02/01/22 19:00 02/01/22 19:01 DC 02/01/22 19:14 50 MCG Promethazine HCl 25 mg ONCE ONCE IVP 02/01/22 19:00 02/01/22 19:01 DC 02/01/22 19:14 25 MG Sodium Chloride 500 ml @ 0 mls/hr Q0M ONCE IV 02/01/22 19:00 02/01/22 19:01 DC 02/01/22 19:14 999 MLS/HR Vital Signs/I&O 02/01/22 18:41 Temp 36.6 Pulse 89 Resp 19 B/P (MAP) 141/99 (113) O2 Delivery Room Air Progress Progress Note #1: Time: 18:56 Progress Note Radicular back pain versus a kidney stone versus pyelonephritis versus other? We will get a CT and give her a 500 cc bag of fluids with Phenergan and fentanyl for her pain. She does not appear to be dehydrated and has a septic vital signs. Progress Note #2: Time: 20:33 Progress Note Blood work looks okay. Urine does not show any signs of infection. There are some calcium oxalate crystals likely from the recent stone. She does not have a current ureteral calculus obstruction seen on CT. No other secondary signs. Patient states her pain is a little better. Her nausea is 90 better but then her IV fluids with the Phenergan have not been infused there just hanging on the wall not running in. We straighten the catheter out and it is running now. We will let her get those give her some Norflex and a single Percocet and have her follow-up with physical therapy, her primary care doctor in 2 to 4 weeks to discuss whether she is getting better. Diagnostic Imaging Diagonstic Imaging: CT (Noncontrast kidney stone study) Plain Films/CT/US/NM/MRI: abdomen, pelvis Comments [facility] [place], [place] NAME: REJI MAHONEY [facility] REC#: [id number] PT STATUS: REG ER : 1970 PHYSICIAN: ERICK RAMOS MD ADMIT DATE: 02/01/22/ER Draft Date of Exam:02/01/22 CT ABD/PELVIS WO(KIDNEY STONE) Clinical indication: Patient with flank pain. Stone suspected. Exam: CT exam of the abdomen and pelvis is performed without IV or oral contrast using stone protocol. Coronal and sagittal reformatted images were created. Auto Exposure Controls were utilized during the CT exam to meet ALARA standards for radiation dose reduction. Comparisons: CT scan of the abdomen and pelvis without contrast dated 12/30/2021. Findings: There is mild atelectasis or scarring involving both lung bases, the left side more than right. There are degenerative spurs involving the visualized portions of the spine. Gallbladder is surgically absent, which is also noted on the prior study. The liver, spleen, pancreas and adrenal glands are unremarkable. Stable nonobstructive stones involving the inferior aspect of the left kidney. Previously seen stone within the right renal pelvis has resolved. There is a residual nonobstructive stone within the right mid kidney which is stable. There are no stones in the ureter or bladder. Bladder is partially fluid-filled and otherwise unremarkable. The uterus is surgically absent. The ovaries are not visualized and may be surgically absent or atretic. There is no intra-abdominal free air or free fluid. There is no lymphadenopathy. There is a small hiatal hernia. Mildly distended air-fluid levels involving the transverse colon and ascending colon are seen with no wall thickening. It is nonspecific. Appendix is surgically absent. There is no intestinal obstruction. Extra abdominal and extra pelvic soft tissue structures are unremarkable. Impression: 1: There is no CT evidence of acute abdominal or pelvic process. 2: There is nonspecific mildly distended air-fluid levels involving the transverse colon and right colon. There is no intestinal obstruction. 3: There are nonobstructive bilateral renal stones. Previously seen stone within right renal pelvis has resolved. There are currently no stones in the ureter or bladder seen. There is no perinephric fat stranding. 4: Small hiatal hernia. Dictated on workstation # [id number] Dict: 02/01/221925 Trans: 02/01/221944 [facility] [id number] Interpreted by: MIKE CASTRO MD Electronically signed by: Reviewed: Reviewed by Me Departure Impression Primary Impression: Thoracic back pain Qualified Codes: M54.6 - Pain in thoracic spine Disposition: HOME, SELF-CARE Condition: Stable Departure-Patient Inst. Decision time for Depature: 20:48 Referrals: MAGGIE COWAN MD (PCP) Primary Care Physician BRAD RONDON APRN (Family) Primary Care Physician Patient Instructions: Upper Back Pain (DC) Add. Discharge Instructions: Keep your follow-up appointment with Dr. Quiles, cardiology. Make an appointment with your primary care doctor in 2 to 4 weeks to reevaluate your back pain. Call physical therapy at [phone] and make a follow-up evaluation on Thursday. Naproxen 500 mg twice a day on a schedule for the next 2 weeks to help reduce inflammation in your back. Cyclobenzaprine 1 tablet every 8 hours as needed for muscle spasms in your back. This will cause drowsiness and should not be combined with alcohol. If you are not seeing improvement at the end of the physical therapy and naproxen then you need to follow-up with your primary care doctor and discuss further appropriate imaging and work-up. All discharge instructions reviewed with patient and/or family. Voiced senait nolasco. Scripts Naproxen (Naprosyn) 500 Mg Tablet 500 MG PO BID for 14 Days, #30 TAB 0 Refills Prov: ERICK RAMOS 02/01/22 Cyclobenzaprine HCl (Cyclobenzaprine HCl) 10 Mg Tablet 10 MG PO Q8H PRN for SPASMS, #15 TAB 0 Refills Prov: ERICK RAMOS 02/01/22 Copy Copies To 1: MAGGIE COWAN MD, TITUS J Feb 01, 2022 18:57
[2022-02-01 19:00] LABS: BILIRUBIN,URINE NEGATIVE (NEGATIVE); CLARITY,URINE CLEAR; COLOR,URINE YELLOW; GLUCOSE, URINE (UA) NEGATIVE (NEGATIVE); KETONES,URINE NEGATIVE (NEGATIVE); LEUKOCYTE ESTERASE ,URINE NEGATIVE (NEGATIVE); NITRITE,URINE NEGATIVE (NEGATIVE); PH,URINE 5.5 (5-9); PROTEIN,URINE NEGATIVE (NEGATIVE)
[2022-02-01] MEDS ORDERED: PROMETHAZINE INJ 25 MG/ML (PHENERGAN) AMP IVP ONE (19:00)
[2022-02-01] MEDS ORDERED: fentaNYL INJ 100 MCG/2 ML AMP IVP ONE (19:00)
[2022-02-01] MEDS ORDERED: NS IV 500 ML 500 ML IV ONE (19:00)
[2022-02-01 19:06] LABS: BASOPHILS % (AUTO) 1 % (0-10); EOSINOPHILS # (AUTO) 0.1 10^3/uL (0.0-0.3); EOSINOPHILS % (AUTO) 1 % (0-10); HEMATOCRIT 41 % (35-52); HEMOGLOBIN 13.6 g/dL (11.5-16.0); LYMPHOCYTES # (AUTO) 1.5 10^3/uL (1.0-4.0); LYMPHOCYTES % (AUTO) 18 % (12-44); MEAN CORPUSCULAR HEMOGLOBIN 29 pg (25-34); MEAN CORPUSCULAR HGB CONC 33 g/dL (32-36); MEAN CORPUSCULAR VOLUME 85 fL (80-99); MEAN PLATELET VOLUME 11.1 fL (9.0-12.2); MONOCYTES # (AUTO) 0.6 10^3/uL (0.0-1.0); MONOCYTES % (AUTO) 7 % (0-12); NEUTROPHILS # (AUTO) 6.4 10^3/uL (1.8-7.8); NEUTROPHILS % (AUTO) 74 % (42-75); PLATELET COUNT 215 10^3/uL (130-400); WHITE BLOOD COUNT 8.6 10^3/uL (4.3-11.0)
[2022-02-01 19:08] LABS: BACTERIA,URINE NEGATIVE /HPF; CALCIUM OXALATE CRYSTALS,UR FEW /LPF; SQUAMOUS EPITHELIAL CELL,UR RARE /HPF; WBC,URINE RARE /HPF
[2022-02-01 19:15] LABS: ALBUMIN 4.6 GM/DL (3.2-4.5); CHLORIDE 109 MMOL/L (98-107); POTASSIUM 4.5 MMOL/L (3.6-5.0); SODIUM 142 MMOL/L (135-145)
[2022-02-01 19:18] LABS: GLUCOSE 148 MG/DL (70-105); TOTAL PROTEIN 7.8 GM/DL (6.4-8.2)
[2022-02-01 19:19] LABS: BILIRUBIN,TOTAL 0.3 MG/DL (0.1-1.0); CARBON DIOXIDE 18 MMOL/L (21-32)
[2022-02-01 19:21] LABS: ALKALINE PHOSPHATASE 65 U/L (40-136); CREATININE SERUM 1.01 MG/DL (0.60-1.30); GFR ESTIMATED 67
[2022-02-01 19:22] LABS: BUN/CREATININE RATIO 17
[2022-02-01 19:24] LABS: ALANINE AMINOTRANSFERASE 33 U/L (0-55)
--- NOTE | 2022-02-01 19:48 | Diagnostic Imaging Report ---
Clinical indication: Patient with flank pain. Stone suspected. Exam: CT exam of the abdomen and pelvis is performed without IV or oral contrast using stone protocol. Coronal and sagittal reformatted images were created. Auto Exposure Controls were utilized during the CT exam to meet ALARA standards for radiation dose reduction. Comparisons: CT scan of the abdomen and pelvis without contrast dated 12/30/2021. Findings: There is mild atelectasis or scarring involving both lung bases, the left side more than right. There are degenerative spurs involving the visualized portions of the spine. Gallbladder is surgically absent, which is also noted on the prior study. The liver, spleen, pancreas and adrenal glands are unremarkable. Stable nonobstructive stones involving the inferior aspect of the left kidney. Previously seen stone within the right renal pelvis has resolved. There is a residual nonobstructive stone within the right mid kidney which is stable. There are no stones in the ureter or bladder. Bladder is partially fluid-filled and otherwise unremarkable. The uterus is surgically absent. The ovaries are not visualized and may be surgically absent or atretic. There is no intra-abdominal free air or free fluid. There is no lymphadenopathy. There is a small hiatal hernia. Mildly distended air-fluid levels involving the transverse colon and ascending colon are seen with no wall thickening. It is nonspecific. Appendix is surgically absent. There is no intestinal obstruction. Extra abdominal and extra pelvic soft tissue structures are unremarkable. Impression: 1: There is no CT evidence of acute abdominal or pelvic process. 2: There is nonspecific mildly distended air-fluid levels involving the transverse colon and right colon. There is no intestinal obstruction. 3: There are nonobstructive bilateral renal stones. Previously seen stone within right renal pelvis has resolved. There are currently no stones in the ureter or bladder seen. There is no perinephric fat stranding. 4: Small hiatal hernia. Dictated by: Dictated on workstation # [id number]
[2022-02-01] MEDS ORDERED: CYCL10TA25 PO (20:49)
[2022-02-01] MEDS ORDERED: NAPR-1071 PO (20:49)
[2022-02-01] MEDS ORDERED: ORPHENADRINE 60 MG/2 ML (NORFLEX) AMP (ED ONLY) IM ONE (21:00)
[2022-02-01] MEDS ORDERED: oxyCODONE/APAP 5/325MG (PERCOCET 5) TABLET PO ONE (21:00)
[2022-02-01 21:33] VITALS: BP 141/99
== END 2022-02-01 21:32 | disposition home or self-care (01) ==
LOC: EDUNIT# 18:30 → ER 18:34
DX: M54.6 Pain in thoracic spine (principal); Z87.442 Personal history of urinary calculi; Z87.828 Personal history of other (healed) physical injury and trauma; Z88.5 Allergy status to narcotic agent
CPT/HCPCS: 36415; 74176; 80053; 81000; 85025; 86141; 99282

== ENCOUNTER → 2022-03-04 | Outpatient (CLI) | payer MEDICARE ==
[~2022-03-04] MED LIST changes: +NAPR-1071 PO
--- NOTE | 2022-03-04 16:57 | Diagnostic Imaging Report ---
INDICATION: Postmenopausal screening COMPARISON: None FINDINGS: AP Spine L1-L4: [BMD (g/cm2): 1.281] [T-Score: 0.7] [Z-Score: 0.9] [BMD Previous: NA] [BMD % Change: NA] LT Hip Neck: [BMD (g/cm2): 0.802] [T-Score: -1.7] [Z-Score: -1.0] LT Hip Total: [BMD (g/cm2):0.912] [T-Score:-0.8] [Z-Score: -0.4] [BMD Previous: NA] [BMD % Change: NA] RT Hip Neck: [BMD (g/cm2):0.762] [T-Score:-2.0] [Z-Score:-1.3] RT Hip Total: [BMD (g/cm2):0.880] [T-score:-1.0] [Z-Score:-0.7] [BMD Previous:NA] [BMD % Change:NA] *Indicates significant change from prior examination based on 95% confidence level. World Health Organization criteria for BMD interpretation classify patients as Normal (T-score at or above -1.0), Osteopenic (T-score between -1.0 and -2.5) or Osteoporotic (T-score at or below -2.5). LIMITATIONS AND MODIFICATION: None. FRACTURE RISK (FRAX SCORE): The ten year probability of (%): Major Osteoporotic Fracture: [6.5] Hip Fracture: [0.8] IMPRESSION: 1. Although there is a T score of -2 in the right femoral neck, overall patient is considered normal 2. See below National Osteoporosis Foundation guidelines on when to potentially initiate pharmacologic therapy. Based on the National Osteoporosis Foundation Guidelines, pharmacologic treatment should be initiated in any of the following, unless clinical conditions suggest otherwise: * Any patient with prior fragility fracture of the hip or vertebrae. A spine fracture indicates 5X risk for subsequent spine fracture and 2X risk for subsequent hip fracture. * Osteoporosis (T-score <-2.5). * Postmenopausal women and men age 50 and older with low bone mass/osteopenia (T-score between -1.0 and -2.5) by DXA and 10-year major osteoporotic fracture greater than 20% or a 10-year probability of hip fracture greater than 3%. These fracture risks are supplied above in the FRAX score, if applicable. * Clinician judgement and/or patient preferences may indicate treatment for people with 10-year fracture probabilities above or below these levels. Dictated by: Dictated on workstation # [id number]
--- NOTE | 2022-03-04 20:34 | Diagnostic Imaging Report ---
Indication: Routine screening. Comparison is made with prior mammograms from 11/27/2020 and 08/03/2015. 2-D and 3-D bilateral screening mammography was performed with CAD. Scattered fibroglandular densities are identified bilaterally. The parenchymal pattern is stable. No mass or malignant-appearing microcalcifications are seen. Axillae are unremarkable. IMPRESSION: BI-RADS Category 1 No mammographic features suspicious for malignancy are identified. ACR BI-RADS Category 1: Negative. Result letter will be mailed to the patient. Note: At least 10% of breast cancer is not imaged by mammography. Dictated by: Dictated on workstation # [id number]
== END ==
LOC: RAD 13:27
PROVIDERS: ATTEND Nurse Practitioner Family
DX: Z12.31 Encounter for screening mammogram for malignant neoplasm of breast (principal); Z13.820 Encounter for screening for osteoporosis; Z78.0 Asymptomatic menopausal state
CPT/HCPCS: 77063; 77067; 77080

== ENCOUNTER 2022-04-04 10:37 | Emergency (ER) | payer MEDICARE ==
[~2022-04-04] VITALS: Ht 157 cm; Wt 74.0 kg
[~2022-04-04 10:37] MED LIST changes: +ALBU8.5H6 IH
[2022-04-04 11:36] LABS: BASOPHILS % (AUTO) 1 % (0-10); EOSINOPHILS # (AUTO) 0.1 10^3/uL (0.0-0.3); EOSINOPHILS % (AUTO) 2 % (0-10); HEMATOCRIT 46 % (35-52); HEMOGLOBIN 14.5 g/dL (11.5-16.0); LYMPHOCYTES # (AUTO) 1.3 10^3/uL (1.0-4.0); LYMPHOCYTES % (AUTO) 24 % (12-44); MEAN CORPUSCULAR HEMOGLOBIN 28 pg (25-34); MEAN CORPUSCULAR HGB CONC 32 g/dL (32-36); MEAN CORPUSCULAR VOLUME 89 fL (80-99); MEAN PLATELET VOLUME 11.9 fL (9.0-12.2); MONOCYTES # (AUTO) 0.4 10^3/uL (0.0-1.0); MONOCYTES % (AUTO) 7 % (0-12); NEUTROPHILS # (AUTO) 3.6 10^3/uL (1.8-7.8); NEUTROPHILS % (AUTO) 66 % (42-75); PLATELET COUNT 181 10^3/uL (130-400); WHITE BLOOD COUNT 5.4 10^3/uL (4.3-11.0)
[2022-04-04 11:42] LABS: BILIRUBIN,URINE NEGATIVE (NEGATIVE); CLARITY,URINE CLEAR; COLOR,URINE YELLOW; GLUCOSE, URINE (UA) NEGATIVE (NEGATIVE); KETONES,URINE NEGATIVE (NEGATIVE); LEUKOCYTE ESTERASE ,URINE 2+ (NEGATIVE); NITRITE,URINE NEGATIVE (NEGATIVE); PROTEIN,URINE NEGATIVE (NEGATIVE)
[2022-04-04 11:46] LABS: ALBUMIN 4.5 GM/DL (3.2-4.5); POTASSIUM 5.1 MMOL/L (3.6-5.0)
[2022-04-04 11:47] LABS: CALCIUM 9.5 MG/DL (8.5-10.1)
[2022-04-04 11:48] LABS: TOTAL PROTEIN 7.9 GM/DL (6.4-8.2)
[2022-04-04] MEDS ORDERED: DICYCLOMINE 10 MG/ML (BENTYL) 2 ML AMP IM STA (11:48)
[2022-04-04 11:50] LABS: BILIRUBIN,TOTAL 0.3 MG/DL (0.1-1.0)
[2022-04-04 11:52] LABS: CREATININE SERUM 1.01 MG/DL (0.60-1.30)
--- NOTE | 2022-04-04 11:54 | ED Abdominal Pain ---
General Chief Complaint: Abdominal/GI Problems Stated Complaint: LT SIDE AND ABD PAIN|NAUSEA Nursing Triage Note: PT AMB TO RM 5 PT CO OF L SIDED ABD PAIN STARTED DURING NIGHT. PT CO OF NAUSEA. Source of Information: Patient Exam Limitations: No Limitations History of Present Illness Date Seen by Provider: Apr 04, 2022 Time Seen by Provider: 11:18 Initial Comments Patient is a 52-year-old female who presents to the emergency department today with a chief complaint of left upper quadrant abdominal pain onset last night before she went to sleep. She states it radiates down her left flank and into the left lower quadrant. She denies diarrhea, black or bloody stools. She has been nauseous without any vomiting. No fevers or chills. No cough, shortness of breath. No COVID symptoms. She has had multiple prior abdominal surgeries including hysterectomy, cholecystectomy, appendectomy. No burning with urination or increased urinary frequency. She denies hematuria. She states that she does have a history of kidney stones in the past. Nothing makes her pain any better or any worse. She states it is constant and rates it at a "8". She took ibuprofen last night and Tylenol this morning without relief of symptoms. Patient states that she has had a history of pancreatitis many years ago. She does not drink alcohol. All other review of systems reviewed and negative except as stated. Timing/Duration: 12 Hours Severity/Quality: Moderate ("8") Location: LUQ Radiation: LLQ Activities at Onset: None Associated Symptoms: Nausea/Vomiting (nausea without vomiting) Allergies and Home Medications Allergies Coded Allergies: Sulfa (Sulfonamide Antibiotics) (Verified Allergy, Unknown, 02/08/20) famotidine (Verified Allergy, Unknown, dry heaves, 02/08/20) ketorolac (Unverified Allergy, Unknown, 02/07/20) ketorolac tromethamine (Verified Allergy, Unknown, 02/07/20) levofloxacin (Unverified Allergy, Unknown, 02/07/20) GIVES HER THRUSH nitrofurantoin (Unverified Allergy, Unknown, 02/07/20) ondansetron (Verified Allergy, Unknown, 02/07/20) tramadol (Unverified Allergy, Unknown, 02/07/20) codeine (Unverified Adverse Reaction, Unknown, 02/07/20) Patient Home Medication List Home Medication List Reviewed: Yes Alprazolam (Alprazolam) 1 Mg Tablet, 2 MG PO HS, (Reported) Entered as Reported by: ANEL RICH on 10/21/17 1220 Amlodipine Besylate (Amlodipine Besylate) 2.5 Mg Tablet, 2.5 MG PO HS, (Reported) Entered as Reported by: ANEL RICH on 10/21/17 1220 Buspirone HCl (Buspirone HCl) 15 Mg Tablet, 15 MG PO TID, (Reported) Entered as Reported by: GUICHO GALVAN on 01/16/22 1118 Cyclobenzaprine HCl (Cyclobenzaprine HCl) 10 Mg Tablet, 10 MG PO Q8H PRN for SPASMS Prescribed by: ERICK RAMOS on 02/01/222048 Diclofenac Sodium (Diclofenac Sodium) 1 % Gel..gram., 2 GM TOP QID PRN for PAIN- BREAKTHROUGH, (Reported) Entered as Reported by: GUICHO GALVAN on 01/16/22 1118 Dicyclomine HCl (Dicyclomine HCl) 20 Mg Tablet, 20 MG PO QID PRN for GI SYMPTOMS, (Reported) Entered as Reported by: GUICHO GALVAN on 01/16/22 111 Gabapentin (Neurontin) 300 Mg Capsule, 300 MG PO BID, (Reported) Entered as Reported by: GUICHO GALVAN on 01/16/22 111 Hydrocodone/Acetaminophen (Hydrocodone-Acetamin 5-325 mg) 5 Mg-325 Mg Tablet, 1 TAB PO Q6H PRN for PAIN-MODERATE (5-7) Prescribed by: RIGOBERTO FOLEY on 04/04/22 1253 Metoprolol Tartrate (Metoprolol Tartrate) 100 Mg Tablet, 100 MG PO BID, (Reported) Entered as Reported by: SHAQUILLE FULTON on 06/20/21 1048 Naproxen (Naprosyn) 500 Mg Tablet, 500 MG PO BID Prescribed by: ERICK RAMOS on 02/01/222048 Nystatin (Nystatin) 100,000 Unit/Ml Oral.susp, 5 ML PO Q6H PRN for THRUSH, (Reported) Entered as Reported by: GUICHO GALVAN on 01/16/22 111 Pantoprazole Sodium (Pantoprazole Sodium) 40 Mg Tablet.dr, 40 MG PO DAILY Prescribed by: ANA CRISTINA CHACKO on 01/17/222142 Prednisone (Prednisone) 10 Mg Tab.ds.pk, 10 MG PO DAILY Prescribed by: ANA CRISTINA CHACKO on 01/17/22 105 Promethazine HCl (Promethazine Tablet) 25 Mg Tablet, 25 MG PO QID PRN for NAUSEA/VOMITING-2ND LINE, (Reported) Entered as Reported by: GUICHO GALVAN on 01/16/22 1118 Quetiapine Fumarate (Quetiapine Fumarate) 400 Mg Tablet, 600 MG PO HS, (Reported) Entered as Reported by: GUICHO GALVAN on 01/16/22 111 Ropinirole HCl (Ropinirole HCl) 3 Mg Tablet, 3 MG PO HS, (Reported) Entered as Reported by: GUICHO GALVAN on 01/16/22 111 Rosuvastatin Calcium (Rosuvastatin Calcium) 10 Mg Tablet, 10 MG PO HS, (Reported) Entered as Reported by: GUICHO GALVAN on 01/16/22 111 Tamsulosin HCl (Flomax) 0.4 Mg Cap, 0.4 MG PO HS Prescribed by: RIGOBERTO FOLEY on 04/04/22 1253 Trazodone HCl (Trazodone HCl) 150 Mg Tablet, 300 MG PO HS, (Reported) Entered as Reported by: SHAQUILLE FULTON on 06/20/21 1048 Review of Systems Review of Systems Constitutional: see HPI EENTM: No Symptoms Reported Respiratory: No Symptoms Reported Cardiovascular: No Symptoms Reported Gastrointestinal: Abdominal Pain, Nausea Genitourinary: No Symptoms Reported; Denies Burning, Denies Discharge Musculoskeletal: no symptoms reported Skin: no symptoms reported All Other Systems Reviewed Negative Unless Noted: Yes Past Ttikcca-Wanaqk-Wtcfrg Hx Patient Social History Tobacco Use?: No Substance use?: No Alcohol Use?: No Immunizations Up To Date Tetanus Booster (TDap): Unknown PED Vaccines UTD: No First/Initial COVID19 Vaccinat: 2020 Second COVID19 Vaccination [place]: 2020 Third COVID19 Vaccination Date: 2020 Seasonal Allergies Seasonal Allergies: Yes (MILD) Past Medical History Surgery/Hospitalization HX: IBS, FIBROMYALGIA Surgeries: Yes (breast reduction;several cysto's with UD;lap gaby;LITHOTRIPSY/KIDNEY ST) Abdominal, Appendectomy, Bladder Surgery, Breast, Gallbladder, Hysterectomy, Oophorectomy, Renal, Tonsillectomy, Tubal Ligation Respiratory: Yes (MILD ASTHMA RELATED TO SEASONAL ALLERGIES) Asthma, Pneumonia, Chronic Bronchitis, Sleep Apnea Currently Using CPAP: Yes Currently Using BIPAP: No Cardiac: Yes (TACHYCARDIA) High Cholesterol, Hypertension, Irregular Heartbeat Neurological: Yes (LAST SEIZURE 07/2017) Headaches /Migraines, Seizure Disorder Reproductive Disorders: Yes 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 Problems, 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, 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 Sexually Transmitted Disease: No HIV/AIDS: No Genitourinary: Yes (INCONTINENCE;LITHOTRIPSY/KIDNEY STONE REMOVAL) Bladder Infection, Kidney Stones, Renal Failure, UTI-Chronic Gastrointestinal: Yes (S/P HIATAL HERNIA REPAIR) Gastroesophageal Reflux, Pancreatitis, Chronic Diarrhea, Hiatal Hernia, Irritable Bowel Musculoskeletal: Yes Fibromyalgia, Chronic Back Pain Endocrine: No HEENT: No Loss of Vision: Bilateral Hearing Impairment: Denies Cancer: Yes Vaginal Did You Recieve Any Treatments: Yes What Type of Treatment Did You: Surgical Intervention Psychosocial: Yes (EXTENSIVE PSYCH ISSUES) Anxiety, Depression Integumentary: No Blood Disorders: No Adverse Reaction/Blood Tranf: No (HAS HAD BLOOD WITH NO REACTION) Family Medical History Dementia 19 FATHER Family history: Cardiovascular disease 19 FATHER Family history: Diabetes mellitus G8 SISTER Family history: Hypertension 19 FATHER 19 MOTHER History of - respiratory disease 19 MOTHER Seizure disorder G8 SISTER No Family History of: Abdominal aortic aneurysm Jatinder's disease Alcoholism Aphasia Cancer Cancer of colon Cataract Chest pain Congenital heart disease Congestive heart failure Cystic fibrosis Family history: Osteoporosis Family history: Thyroid disorder Headache Hearing loss Heart disease Hereditary disease History of - anemia History of - disorder History of drug abuse Human immunodeficiency virus (HIV) seropositivity Hypercholesterolemia Infertile Kidney disease Malignant neoplasm of lung Myocardial infarction Parkinson's disease Prostate cancer Psychotic disorder Stroke Tuberculosis Visual impairment Heart Disease PSH: -CHOLECYSTECTOMY -APPENDECTOMY -LAP GABY FUNDOPLICATION -BILATERAL TUBAL LIGATION -LAPAROSCOPIES FOR OVARIAN CYSTS -HYSTERECTOMY/BILATERAL SALPINGO-OOPHORECTOMY -CYSTOSCOPIES AND URETHRAL DILATIONS -LITHOTRIPSY -CYSTOSCOPY WITH KIDNEY STONE REMOVAL -TONSILLECTOMY/ADENOIDECTOMY -BREAST REDUCTION Physical Exam Vital Signs Vital Signs - First Documented 04/04/22 10:45 Temp 35.7 Pulse 82 Resp 18 B/P (MAP) 140/101 (114) Pulse Ox 96 Capillary Refill : Less Than 3 Seconds Height/Weight/BMI Height: 5'1.00" Weight: 162lbs. 0.0oz. 73.326197fg; 30.00 BMI Method:Stated General Appearance: WD/WN, no apparent distress HEENT: PERRL/EOMI Respiratory: lungs clear, normal breath sounds, no respiratory distress, no accessory muscle use Cardiovascular: regular rate, rhythm Gastrointestinal: normal bowel sounds, soft, tenderness (mild tenderness left flank - no rebound. no involuntary guarding. 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, no motor/sensory deficits, alert, normal mood/affect, oriented x 3 Skin: normal color, warm/dry Progress/Results/Core Measures Results/Orders Lab Results Laboratory Tests Test 04/04/22 10:50 Range/Units White Blood Count 5.4 4.3-11.0 10^3/uL Red Blood Count 5.12 H 3.80-5.11 10^6/uL Hemoglobin 14.5 11.5-16.0 g/dL Hematocrit 46 35-52 % Mean Corpuscular Volume 89 80-99 fL Mean Corpuscular Hemoglobin 28 25-34 pg Mean Corpuscular Hemoglobin Concent 32 32-36 g/dL Red Cell Distribution Width 12.4 10.0-14.5 % Platelet Count 181 130-400 10^3/uL Mean Platelet Volume 11.9 9.0-12.2 fL Immature Granulocyte % (Auto) 1 % Neutrophils (%) (Auto) 66 42-75 % Lymphocytes (%) (Auto) 24 12-44 % Monocytes (%) (Auto) 7 0-12 % Eosinophils (%) (Auto) 2 0-10 % Basophils (%) (Auto) 1 0-10 % Neutrophils # (Auto) 3.6 1.8-7.8 10^3/uL Lymphocytes # (Auto) 1.3 1.0-4.0 10^3/uL Monocytes # (Auto) 0.4 0.0-1.0 10^3/uL Eosinophils # (Auto) 0.1 0.0-0.3 10^3/uL Basophils # (Auto) 0.0 0.0-0.1 10^3/uL Immature Granulocyte # (Auto) 0.0 0.0-0.1 10^3/uL Urine Color YELLOW Urine Clarity CLEAR Urine pH 7.0 5-9 Urine Specific [place] 1.010 L 1.016-1.022 Urine Protein NEGATIVE NEGATIVE Urine Glucose (UA) NEGATIVE NEGATIVE Urine Ketones NEGATIVE NEGATIVE Urine Nitrite NEGATIVE NEGATIVE Urine Bilirubin NEGATIVE NEGATIVE Urine Urobilinogen 0.2 < = 1.0 MG/DL Urine Leukocyte Esterase 2+ H NEGATIVE Urine RBC (Auto) 1+ H NEGATIVE Urine RBC 2-5 H /HPF Urine WBC 10-25 H /HPF Urine Squamous Epithelial Cells 2-5 /HPF Urine Renal Epithelial Cells 2-5 /HPF Urine Crystals NONE /LPF Urine Bacteria FEW H /HPF Urine Casts NONE /LPF Urine Mucus NEGATIVE /LPF Urine Culture Indicated YES Sodium Level 136 135-145 MMOL/L Potassium Level 5.1 H 3.6-5.0 MMOL/L Chloride Level 105 98-107 MMOL/L Carbon Dioxide Level 19 L 21-32 MMOL/L Anion Gap 12 5-14 MMOL/L Blood Urea Nitrogen 9 7-18 MG/DL Creatinine 1.01 0.60-1.30 MG/DL Estimat Glomerular Filtration Rate 67 BUN/Creatinine Ratio 9 Glucose Level 143 H 70-105 MG/DL Calcium Level 9.5 8.5-10.1 MG/DL Corrected Calcium 9.1 8.5-10.1 MG/DL Total Bilirubin 0.3 0.1-1.0 MG/DL Aspartate Amino Transf (AST/SGOT) 25 5-34 U/L Alanine Aminotransferase (ALT/SGPT) 27 0-55 U/L Alkaline Phosphatase 69 40-136 U/L Total Protein 7.9 6.4-8.2 GM/DL Albumin 4.5 3.2-4.5 GM/DL Lipase 15 8-78 U/L My Orders Orders - RIGOBERTO FOLEY MD Ed Iv/Invasive Line Start (04/04/22 11:26) Cbc With Automated Diff (04/04/22 11:26) Comprehensive Metabolic Panel (04/04/22 11:26) Ua Culture If Indicated (04/04/22 11:26) Lipase (04/04/22 11:26) Dicyclomine Injection (Bentyl Injection) (04/04/22 11:48) Promethazine Injection (Phenergan Injec (04/04/22 12:00) Ns Iv 1000 Ml (Sodium Chloride 0.9%) (04/04/22 12:00) Urine Culture (04/04/22 10:50) Hydrocodone/Apap 7.5/325 Tab (Lortab 7. (04/04/22 12:45) Medications Given in ED Vital Signs/I&O 04/04/22 04/04/22 10:45 13:58 Temp 35.7 Pulse 82 74 Resp 18 18 B/P (MAP) 140/101 (114) 130/94 Pulse Ox 96 96 Blood Pressure Mean: 114 Progress Progress Note : Time: 12:48 Progress Note Patient seen and evaluated, left upper quadrant pain since last evening. No associated symptoms other than mild to moderate nausea. Evaluation today includes a physical exam, basic laboratory studies including a urinalysis. Patient does have some microscopic hematuria and review of the medical record shows that she has had diagnosis of previous kidney stones. She is a patient of Dr. Hook. I reviewed patient's imaging over the last many years. She has had 24 CAT scans of the abdomen and pelvis since 2008 and likely twice that many plain x-rays of the abdomen and pelvis. Clinically she looks well, nontoxic. Her abdominal exam is benign. She is afebrile. She has trace bacteria in her urine with trace red blood cells. Normal renal function. I do not see any cl inical indication for imaging at this time. She likely does have a stone but due to the relatively normal work-up pain management would be most beneficial. We will start her on some Flomax and give her some hydrocodone as she states she is not allergic. We will get her enough to go through Thursday. She is asking for some pain medicine at this time, the Bentyl I gave her did not help. I gave her hydrocodone 7.5 mg. We will send a prescription for the Flomax and hydrocodone to her pharmacy. Return precautions provided. All questions are sought and answered. Departure Impression Primary Impression: Abdominal pain Qualified Codes: R10.12 - Left upper quadrant pain Additional Impressions: Microscopic hematuria History of kidney stones Disposition: HOME, SELF-CARE Condition: Stable Departure-Patient Inst. Decision time for Depature: 12:51 Referrals: MAGGIE COWAN MD (PCP) Primary Care Physician CRAGER,BRAD J LEARNING AND DEVELOPMENT ADMINISTRATOR (Family) Primary Care Physician MARISA HOOK MD Patient Instructions: Abdominal Pain, Adult ED Add. Discharge Instructions: Drink plenty of fluids to stay well-hydrated. You can take [id number] ibuprofen, 3 tablets which is 600 mg every 6 hours as needed for pain. Always take ibuprofen with food. Hydrocodone 5 mg 1 every 6 hours as needed for more severe pain. If you are having to take hydrocodone daily, you should take a stool softener as narcotic pain medications can cause constipation. Flomax, 0.4 mg. Take 1 at night for the next [address] Hook's office on Thursday morning for a follow-up appointment next week. Return to the emergency department for reevaluation if you develop worsening pain, fever or any other emergent, concerning symptoms. Scripts Hydrocodone/Acetaminophen (Hydrocodone-Acetamin 5-325 mg) 5 Mg-325 Mg Tablet 1 TAB PO Q6H PRN for PAIN-MODERATE (5-7), #10 TAB Prov: RIGOBERTO FOLEY MD 04/04/22 Tamsulosin HCl (Flomax) 0.4 Mg Cap 0.4 MG PO HS for 14 Days, #14 CAP Prov: RIGOBERTO FOLEY MD 04/04/22 Copy Copies To 1: MAGGIE COWAN MD Copies To 2: MARISA HOOK MD, KATHRYN M MD Apr 04, 2022 11:54
[2022-04-04 11:55] LABS: BACTERIA,URINE FEW /HPF
[2022-04-04] MEDS ORDERED: NS IV 1000 ML 1,000 ML IV SCH (12:00)
[2022-04-04] MEDS ORDERED: PROMETHAZINE INJ 25 MG/ML (PHENERGAN) AMP IVP ONE (12:00)
[2022-04-04] MEDS ORDERED: HYDROcodone/APAP 7.5 MG/325 MG (LORTAB, LORCET PLUS) TABLET PO ONE (12:45)
[2022-04-04] MEDS ORDERED: TMSL.4C PO (12:53)
[2022-04-04] MEDS ORDERED: ACHD5005 PO (12:53)
[2022-04-04 13:58] VITALS: BP 130/94
== END 2022-04-04 13:56 | disposition home or self-care (01) ==
LOC: EDUNIT# 10:37 → ER 10:39
DX: R10.12 Left upper quadrant pain (principal); R31.29 Other microscopic hematuria; R11.0 Nausea; Z87.442 Personal history of urinary calculi; Z88.6 Allergy status to analgesic agent; Z88.5 Allergy status to narcotic agent; Z87.19 Personal history of other diseases of the digestive system; Z90.49 Acquired absence of other specified parts of digestive tract; Z87.448 Personal history of other diseases of urinary system; Z87.440 Personal history of urinary (tract) infections; Z98.890 Other specified postprocedural states
CPT/HCPCS: 36415; 80053; 81000; 83690; 85025; 87088

== ENCOUNTER → 2022-05-19 | Outpatient (CLI) | payer MEDICARE ==
[~2022-05-19] MED LIST changes: -DOXY-311 PO; +DOXY-444 PO
[2022-05-19 12:04] LABS: BASOPHILS % (AUTO) 1 % (0-10); EOSINOPHILS # (AUTO) 0.1 10^3/uL (0.0-0.3); EOSINOPHILS % (AUTO) 2 % (0-10); HEMATOCRIT 43 % (35-52); HEMOGLOBIN 14.1 g/dL (11.5-16.0); LYMPHOCYTES # (AUTO) 1.4 10^3/uL (1.0-4.0); LYMPHOCYTES % (AUTO) 21 % (12-44); MEAN CORPUSCULAR HEMOGLOBIN 28 pg (25-34); MEAN CORPUSCULAR HGB CONC 33 g/dL (32-36); MEAN CORPUSCULAR VOLUME 86 fL (80-99); MEAN PLATELET VOLUME 10.7 fL (9.0-12.2); MONOCYTES # (AUTO) 0.5 10^3/uL (0.0-1.0); MONOCYTES % (AUTO) 7 % (0-12); NEUTROPHILS # (AUTO) 4.5 10^3/uL (1.8-7.8); NEUTROPHILS % (AUTO) 69 % (42-75); PLATELET COUNT 239 10^3/uL (130-400); WHITE BLOOD COUNT 6.5 10^3/uL (4.3-11.0)
[2022-05-19 12:25] LABS: ALBUMIN 4.5 GM/DL (3.2-4.5); BILIRUBIN,TOTAL 0.2 MG/DL (0.1-1.0); CALCIUM 9.3 MG/DL (8.5-10.1); CREATININE SERUM 0.95 MG/DL (0.60-1.30); POTASSIUM 3.2 MMOL/L (3.6-5.0); TOTAL PROTEIN 7.8 GM/DL (6.4-8.2)
== END ==
LOC: CARD 12:00
PROVIDERS: ATTEND Nurse Practitioner Family
DX: R00.0 Tachycardia, unspecified (principal)
CPT/HCPCS: 36415; 80053; 84443; 85025; 93005

== ENCOUNTER → 2022-08-12 | Outpatient (CLI) | payer MEDICARE ==
[~2022-08-12] MED LIST changes: +GADOTERATE 0.5 MMOL/ML (CLARISCAN) 15 ML VIAL IV ONE
--- NOTE | 2022-08-12 10:00 | Diagnostic Imaging Report ---
Technique: Multiplanar and multisequence MRI of the thoracic spine is performed with and without contrast. Reason for exam mid back pain. COMPARISON: 09/03/2020. FINDINGS: No acute fracture or dislocation in the thoracic spine. No abnormal enhancement. Alignment is anatomic. No suspicious focal osseous lesions. Scattered small Schmorl's nodes are noted in the lower thoracic spine, not significantly changed since the prior exam. No associated bone marrow edema is seen to suggest acute Schmorl's node. The thoracic spinal cord has a normal appearance. No cord expansion. No epidural collections. No large disc bulges or evidence of significant spinal canal or foraminal stenosis in the thoracic spine. The appearance is unchanged compared to the prior exam. The paraspinal soft tissues are unremarkable. IMPRESSION: 1. No acute fracture or dislocation in the thoracic spine. No abnormal enhancement. 2. Unremarkable appearance of the thoracic spinal cord. No abnormal cord signal or abnormal enhancement. No epidural collections. 3. No significant degenerative changes in the thoracic spine. No spinal canal or foraminal stenosis. No large disc bulges. Dictated by: Dictated on workstation # [id number]
== END ==
LOC: RAD 07:37
PROVIDERS: ATTEND Nurse Practitioner Family
DX: M54.6 Pain in thoracic spine (principal)
CPT/HCPCS: 72157

== ENCOUNTER → 2022-09-18 | Outpatient (CLI) | payer MEDICARE ==
[~2022-09-18] MED LIST changes: -GADOTERATE 0.5 MMOL/ML (CLARISCAN) 15 ML VIAL IV ONE
== END ==
LOC: CARD 12:29
PROVIDERS: ATTEND Internal Medicine
DX: R00.2 Palpitations (principal)
CPT/HCPCS: 93005; 93225; 93226

== ENCOUNTER → 2023-01-19 | Outpatient (CLI) | payer MEDICARE ==
[~2023-01-19] MED LIST changes: +ORPH100T3 PO
--- NOTE | 2023-01-19 12:13 | Diagnostic Imaging Report ---
PROCEDURE: US Hepatic (Liver). TECHNIQUE: Multiple real-time grayscale images were obtained over the right upper quadrant in various projections. INDICATION: Abdominal pain. Liver is normal size at 14 cm. The portal vein is patent and shows normal direction of flow. Gallbladder surgically absent. There is no biliary ductal dilatation. Pancreas is unremarkable. Aorta is nonaneurysmal. IVC is patent. Right kidney contains an approximately 1 cm cyst in the upper pole. No calculi or hydronephrosis is detected. There is no ascites. IMPRESSION: 1. Status post cholecystectomy. 2. Small right renal cyst. Study is otherwise unremarkable. Dictated by: Dictated on workstation # [id number]
== END ==
LOC: RAD 07:27
PROVIDERS: ATTEND Nurse Practitioner Family
DX: N28.1 Cyst of kidney, acquired (principal); R27.8 Other lack of coordination; Z90.49 Acquired absence of other specified parts of digestive tract
CPT/HCPCS: 76705

== ENCOUNTER → 2023-02-04 | Outpatient (CLI) | payer MEDICARE ==
[~2023-02-04] MED LIST changes: +GADOTERATE 0.5 MMOL/ML (CLARISCAN) 20 ML VIAL IV ONE; -ROPI0.253 PO; +ROPI0.2533 PO; +ROPI3TAB21 PO; -ROPI3TAB4 PO; +ROPI5TAB23 PO; -ROPI5TAB3 PO
--- NOTE | 2023-02-04 11:44 | Diagnostic Imaging Report ---
Clinical indications: Patient having memory problems. Exam: MRI of the brain performed without and with 14 cc of Clariscan IV contrast. Sequences include axial DWI, ADC map, axial gradient echo, axial T2, sagittal flair, axial FLAIR, axial T1, axial T1 post IV contrast, coronal T1 fat-sat post IV contrast, and sagittal T1 post IV contrast. Comparison: Head CT without contrast dated 03/24/2016. Findings: There is no evidence of acute cerebral infarct, intracranial hemorrhage, or gross mass effect. There is no abnormal IV contrast enhancement. The brain parenchymal volume appears appropriate for patient's age. There are multiple focal and patchy areas of high T2 signal white matter changes involving both cerebral hemispheres, likely representing chronic small vessel ischemic disease. There is normal baldwin-white matter distinction. There is no significant midline shift or herniation. The visualized [place] of Main vascular structures are unremarkable. The pituitary gland, sella, and suprasellar regions are unremarkable as visualized. There is no evidence of hydrocephalus. The basal cisterns are unremarkable. The skull, extracranial soft tissue, and orbits are unremarkable. The paranasal sinuses are unremarkable. Temporal bones show no significant abnormality. IMPRESSION: 1: There is no evidence of acute intracranial process. There is no abnormal IV contrast enhancement. 2: There are age related brain parenchymal changes including chronic small vessel ischemic disease. Dictated by: Dictated on workstation # [id number]
== END ==
LOC: RAD 08:56
PROVIDERS: ATTEND Nurse Practitioner Family
DX: I67.82 Cerebral ischemia (principal); R27.0 Ataxia, unspecified; R10.9 Unspecified abdominal pain; R74.01 Elevation of levels of liver transaminase levels
CPT/HCPCS: 70553

== ENCOUNTER 2023-03-08 10:46 | Emergency (ER) | payer MEDICARE ==
[~2023-03-08] VITALS: Ht 154 cm; Wt 70.0 kg
[~2023-03-08 10:46] MED LIST changes: -DICL100G13 TOP; +DICL100G60 TOP; -GADOTERATE 0.5 MMOL/ML (CLARISCAN) 20 ML VIAL IV ONE
--- NOTE | 2023-03-08 11:26 | ED General ---
General Chief Complaint: General Problems/Pain Stated Complaint: NAUSEA/HEADACHE Nursing Triage Note: PT TO ED W/ C/O LIGHTHEADED, N/V, BODY ACHES, GENERALIZED PAIN ONSET 4-5 DAYS Source of Information: Patient Exam Limitations: No Limitations History of Present Illness Date Seen by Provider: Mar 08, 2023 Time Seen by Provider: 11:01 Initial Comments 52-year-old female presents to the ER with multiple complaints. She states for the last 3 to 4 days she has been vomiting approximately 4 times a day. She reports generalized abdominal pain, midsternal/epigastric chest pain, headache, sore throat, cough, and dizziness when she gets up from lying or sitting. She reports mild shortness of air, states that she is coughing up a very small amount of blood. She states that the first day of her symptoms she had a temperature of 100.8. She reports that she has been having the chills. Denies diarrhea and dysuria. Last bowel movement was 3 days ago, patient states this is normal for her due to her IBS. Allergies and Home Medications Allergies Coded Allergies: Sulfa (Sulfonamide Antibiotics) (Verified Allergy, Unknown, 02/08/20) famotidine (Verified Allergy, Unknown, dry heaves, 02/08/20) ketorolac (Unverified Allergy, Unknown, 02/07/20) ketorolac tromethamine (Verified Allergy, Unknown, 02/07/20) levofloxacin (Unverified Allergy, Unknown, 02/07/20) GIVES HER THRUSH nitrofurantoin (Unverified Allergy, Unknown, 02/07/20) ondansetron (Verified Allergy, Unknown, 02/07/20) tramadol (Unverified Allergy, Unknown, 02/07/20) codeine (Unverified Adverse Reaction, Unknown, 02/07/20) Patient Home Medication List Home Medication List Reviewed: Yes Alprazolam (Alprazolam) 1 Mg Tablet, 2 MG PO HS, (Reported) Entered as Reported by: ANEL RICH on 10/21/17 1220 Amlodipine Besylate (Amlodipine Besylate) 2.5 Mg Tablet, 2.5 MG PO HS, (Reported) Entered as Reported by: ANEL RICH on 10/21/17 1220 Buspirone HCl (Buspirone HCl) 15 Mg Tablet, 15 MG PO TID, (Reported) Entered as Reported by: GUICHO GALVAN on 01/16/22 111 Cyclobenzaprine HCl (Cyclobenzaprine HCl) 10 Mg Tablet, 10 MG PO Q8H PRN for S PASMS Prescribed by: ERICK RAMOS on 02/01/222048 Diclofenac Sodium (Diclofenac Sodium) 1 % Gel..gram., 2 GM TOP QID PRN for PAIN- BREAKTHROUGH, (Reported) Entered as Reported by: GUICHO GALVAN on 01/16/22 111 Dicyclomine HCl (Dicyclomine HCl) 20 Mg Tablet, 20 MG PO QID PRN for GI SYMPTOMS, (Reported) Entered as Reported by: GUICHO GALVAN on 01/16/22 111 Gabapentin (Neurontin) 300 Mg Capsule, 300 MG PO BID, (Reported) Entered as Reported by: GUICHO GALVAN on 01/16/22 111 Hydrocodone/Acetaminophen (Hydrocodone-Acetamin 5-325 mg) 5 Mg-325 Mg Tablet, 1 TAB PO Q6H PRN for PAIN-MODERATE (5-7) Prescribed by: RIGOBERTO FOLEY on 04/04/22 1253 Hydrocodone/Acetaminophen (Hydrocodone-Acetamin 5-325 mg) 5 Mg-325 Mg Tablet, 1 TAB PO Q4H PRN for PAIN-MODERATE (5-7) Prescribed by: Ora Cespedes on 03/08/23 1620 Metoprolol Tartrate (Metoprolol Tartrate) 100 Mg Tablet, 100 MG PO BID, (Reported) Entered as Reported by: SHAQUILLE FULTON on 06/20/21 1048 Naproxen (Naprosyn) 500 Mg Tablet, 500 MG PO BID Prescribed by: ERICK RAMOS on 02/01/222048 Nystatin (Nystatin) 100,000 Unit/Ml Oral.susp, 5 ML PO Q6H PRN for THRUSH, (Reported) Entered as Reported by: GUICHO GALVAN on 01/16/22 111 Pantoprazole Sodium (Pantoprazole Sodium) 40 Mg Tablet.dr, 40 MG PO DAILY Prescribed by: ANA CRISTINA CHACKO on 01/17/222142 Prednisone (Prednisone) 10 Mg Tab.ds.pk, 10 MG PO DAILY Prescribed by: ANA CRISTINA CHACKO on 01/17/22 1058 Promethazine HCl (Promethazine Tablet) 25 Mg Tablet, 25 MG PO QID PRN for NAUSEA/VOMITING-2ND LINE, (Reported) Entered as Reported by: GUICHO GALVAN on 01/16/22 1118 Promethazine HCl (Promethazine Suppository) 25 Mg Supp.rect, 25 MG RC Q6H Prescribed by: Ora Cespedes on 03/08/23 1620 Quetiapine Fumarate (Quetiapine Fumarate) 400 Mg Tablet, 600 MG PO HS, (Reported) Entered as Reported by: GUICHO GALVAN on 01/16/22 1118 Ropinirole HCl (Ropinirole HCl) 3 Mg Tablet, 3 MG PO HS, (Reported) Entered as Reported by: GUICHO GALVAN on 01/16/22 1118 Rosuvastatin Calcium (Rosuvastatin Calcium) 10 Mg Tablet, 10 MG PO HS, (Re ported) Entered as Reported by: GUICHO GALVAN on 01/16/22 1118 Tamsulosin HCl (Flomax) 0.4 Mg Cap, 0.4 MG PO HS Prescribed by: RIGOBERTO FOLEY on 04/04/22 1253 Tamsulosin HCl (Flomax) 0.4 Mg Cap, 0.4 MG PO DAILY Prescribed by: Ora Cespedes on 03/08/23 1620 Trazodone HCl (Trazodone HCl) 150 Mg Tablet, 300 MG PO HS, (Reported) Entered as Reported by: SHAQUILLE FULTON on 06/20/21 1048 Review of Systems Review of Systems Constitutional: see HPI Past Sgwwqun-Gknmbe-Ympqzh Hx Immunizations Up To Date Tetanus Booster (TDap): Unknown PED Vaccines UTD: No First/Initial COVID19 Vaccinat: 2020 Second COVID19 Vaccination [place]: 2020 Third COVID19 Vaccination Date: 2020 Seasonal Allergies Seasonal Allergies: Yes (MILD) Past Medical History Surgery/Hospitalization HX: IBS, FIBROMYALGIA Surgeries: Yes (breast reduction;several cysto's with UD;lap gaby;LITHOTRIPSY/KIDNEY ST) Abdominal, Appendectomy, Bladder Surgery, Breast, Gallbladder, Hysterectomy, Oophorectomy, Renal, Tonsillectomy, Tubal Ligation Respiratory: Yes (MILD ASTHMA RELATED TO SEASONAL ALLERGIES) Asthma, Pneumonia, Chronic Bronchitis, Sleep Apnea Currently Using CPAP: Yes Currently Using BIPAP: No Cardiac: Yes (TACHYCARDIA) High Cholesterol, Hypertension, Irregular Heartbeat Neurological: Yes (LAST SEIZURE 07/2017) Headaches /Migraines, Seizure Disorder Reproductive Disorders: Yes 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 Problems, Ovarian Cyst X [employer] History: Hysterectomy, Menopausal Sexually Transmitted Disease: No HIV/AIDS: No Genitourinary: Yes (INCONTINENCE;LITHOTRIPSY/KIDNEY STONE REMOVAL) Bladder Infection, Kidney Stones, Renal Failure, UTI-Chronic Gastrointestinal: Yes (S/P HIATAL HERNIA REPAIR) Gastroesophageal Reflux, Pancreatitis, Chronic Diarrhea, Hiatal Hernia, Irritable Bowel Musculoskeletal: Yes Fibromyalgia, Chronic Back Pain Endocrine: No HEENT: No Loss of Vision: Bilateral Hearing Impairment: Denies Cancer: Yes Vaginal Did You Recieve Any Treatments: Yes What Type of Treatment Did You: Surgical Intervention Psychosocial: Yes (EXTENSIVE PSYCH ISSUES) Anxiety, Depression Integumentary: No Blood Disorders: No Adverse Reaction/Blood Tranf: No (HAS HAD BLOOD WITH NO REACTION) Family Medical History Dementia 19 FATHER Family history: Cardiovascular disease 19 FATHER Family history: Diabetes mellitus G8 SISTER Family history: Hypertension 19 FATHER 19 MOTHER History of - respiratory disease 19 MOTHER Seizure disorder G8 SISTER No Family History of: Abdominal aortic aneurysm [place]'s disease Alcoholism Aphasia Cancer Cancer of colon Cataract Chest pain Congenital heart disease Congestive heart failure Cystic fibrosis Family history: Osteoporosis Family history: Thyroid disorder Headache Hearing loss Heart disease Hereditary disease History of - anemia History of - disorder History of drug abuse Human immunodeficiency virus (HIV) seropositivity Hypercholesterolemia Infertile Kidney disease Malignant neoplasm of lung Myocardial infarction Parkinson's disease Prostate cancer Psychotic disorder Stroke Tuberculosis Visual impairment Heart Disease PSH: -CHOLECYSTECTOMY -APPENDECTOMY -LAP GABY FUNDOPLICATION -BILATERAL TUBAL LIGATION -LAPAROSCOPIES FOR OVARIAN CYSTS -HYSTERECTOMY/BILATERAL SALPINGO-OOPHORECTOMY -CYSTOSCOPIES AND URETHRAL DILATIONS -LITHOTRIPSY -CYSTOSCOPY WITH KIDNEY STONE REMOVAL -TONSILLECTOMY/ADENOIDECTOMY -BREAST REDUCTION Physical Exam Vital Signs Vital Signs - First Documented 03/08/23 10:55 Temp 36.4 Pulse 100 Resp 20 B/P (MAP) 144/97 (113) Pulse Ox 95 O2 Delivery Room Air Capillary Refill : Less Than 3 Seconds Height, Weight, BMI Height: 5'1.00" Weight: 162lbs. 0.0oz. [id number]; 29.00 BMI Method:Stated General Appearance: WD/WN, Mild Distress HEENT: TM Abnormal (L) (Dull, landmarks visible, no erythema), TM Abnormal (R) (Dull, landmarks visible, no erythema) Neck: Normal Inspection, Supple Respiratory: Lungs Clear, Normal Breath Sounds, No Accessory Muscle Use, No Respiratory Distress Cardiovascular: Tachycardia Gastrointestinal: Normal Bowel Sounds, Soft; No Guarding; Tenderness (Generalized tenderness) Extremity: Normal Inspection, Normal Range of Motion, Non Tender, No Calf Tenderness Neurologic/Psychiatric: Alert, Normal Mood/Affect Skin: Normal Color, Warm/Dry Focused Exam Lactate Level 03/08/23 11:28: Lactic Acid Level 2.41*H 03/08/23 15:30: Lactic Acid Level 0.74 Lactic Acid Level Laboratory Tests Test 03/08/23 11:28 03/08/23 15:30 Lactic Acid Level 2.41 MMOL/L (0.50-2.00) *H 0.74 MMOL/L (0.50-2.00) Progress/Results/Core Measures Suspected Sepsis SIRS Temperature: Pulse: 100 Respiratory Rate: 20 Laboratory Tests 03/08/23 11:28: White Blood Count 5.6 Blood Pressure 144 /97 Mean: 113 03/08/23 11:28: Lactic Acid Level 2.41*H 03/08/23 15:30: Lactic Acid Level 0.74 Laboratory Tests 03/08/23 11:28: INR Comment 1.0, Platelet Count 155 03/08/23 12:22: Creatinine 0.97, Total Bilirubin 0.6 Results/Orders Lab Results Laboratory Tests Test 03/08/23 11:20 03/08/23 11:28 03/08/23 11:29 03/08/23 12:22 Range/Units Urine Color YELLOW Urine Clarity CLEAR Urine pH 6.0 5-9 Urine Specific [place] 1.025 H 1.016-1.022 Urine Protein NEGATIVE NEGATIVE Urine Glucose (UA) NEGATIVE NEGATIVE Urine Ketones NEGATIVE NEGATIVE Urine Nitrite NEGATIVE NEGATIVE Urine Bilirubin NEGATIVE NEGATIVE Urine Urobilinogen 0.2 < = 1.0 MG/DL Urine Leukocyte Esterase NEGATIVE NEGATIVE Urine RBC (Auto) 3+ H NEGATIVE Urine RBC 25-50 H /HPF Urine WBC NONE /HPF Urine Squamous Epithelial Cells 2-5 /HPF Urine Crystals NONE /LPF Urine Bacteria NEGATIVE /HPF Urine Casts NONE /LPF Urine Mucus NEGATIVE /LPF Urine Culture Indicated YES White Blood Count 5.6 4.3-11.0 10^3/uL Red Blood Count 5.21 H 3.80-5.11 10^6/uL Hemoglobin 15.4 11.5-16.0 g/dL Hematocrit 47 35-52 % Mean Corpuscular Volume 90 80-99 fL Mean Corpuscular Hemoglobin 30 25-34 pg Mean Corpuscular Hemoglobin Concent 33 32-36 g/dL Red Cell Distribution Width 11.9 10.0-14.5 % Platelet Count 155 130-400 10^3/uL Mean Platelet Volume 12.8 H 9.0-12.2 fL Immature Granulocyte % (Auto) 0 % Neutrophils (%) (Auto) 59 42-75 % Lymphocytes (%) (Auto) 29 12-44 % Monocytes (%) (Auto) 9 0-12 % Eosinophils (%) (Auto) 2 0-10 % Basophils (%) (Auto) 1 0-10 % Neutrophils # (Auto) 3.3 1.8-7.8 10^3/uL Lymphocytes # (Auto) 1.7 1.0-4.0 10^3/uL Monocytes # (Auto) 0.5 0.0-1.0 10^3/uL Eosinophils # (Auto) 0.1 0.0-0.3 10^3/uL Basophils # (Auto) 0.0 0.0-0.1 10^3/uL Immature Granulocyte # (Auto) 0.0 0.0-0.1 10^3/uL Prothrombin Time 13.8 12.2-14.7 SEC INR Comment 1.0 0.8-1.4 Activated Partial Thromboplast Time 32 24-35 SEC D-Dimer 0.31 0.00-0.49 UG/ML Lactic Acid Level 2.41 *H 0.50-2.00 MMOL/L Influenza Type A (RT-PCR) Not Detected Not Detecte Influenza Type B (RT-PCR) Not Detected Not Detecte SARS-CoV-2 RNA (RT-PCR) Detected H Not Detecte Group A Streptococcus Screen Not Detected NotDetected Sodium Level 140 135-145 MMOL/L Potassium Level 4.9 3.6-5.0 MMOL/L Chloride Level 110 H 98-107 MMOL/L Carbon Dioxide Level 16 L 21-32 MMOL/L Anion Gap 14 5-14 MMOL/L Blood Urea Nitrogen 14 7-18 MG/DL Creatinine 0.97 0.60-1.30 MG/DL Estimat Glomerular Filtration Rate 70 BUN/Creatinine Ratio 14 Glucose Level 93 70-105 MG/DL Calcium Level 8.7 8.5-10.1 MG/DL Corrected Calcium 8.9 8.5-10.1 MG/DL Magnesium Level 1.7 1.6-2.4 MG/DL Total Bilirubin 0.6 0.1-1.0 MG/DL Aspartate Amino Transf (AST/SGOT) 69 H 5-34 U/L Alanine Aminotransferase (ALT/SGPT) 68 H 0-55 U/L Alkaline Phosphatase 66 40-136 U/L Troponin I < 0.028 <0.028 NG/ML Total Protein 7.5 6.4-8.2 GM/DL Albumin 3.7 3.2-4.5 GM/DL Lipase 19 8-78 U/L Test 03/08/23 15:30 Range/Units Lactic Acid Level 0.74 0.50-2.00 MMOL/L My Orders Orders - [employer] Cbc And Automated Diff (03/08/23 11:16) Comprehensive Metabolic Panel (03/08/23 11:16) Sputum Culture (03/08/23 11:16) Protime With Inr (03/08/23 11:16) Partial Thromboplastin Time (03/08/23 11:16) Chest 1 View, Ap/Pa Only (03/08/23 11:16) Ed Iv/Invasive Line Start (03/08/23 11:16) Vital Signs Adult Sepsis Patie Q15M (03/08/23 11:16) Remove Rings In Anticipation O (03/08/23 11:16) Lactic Acid Analyzer (03/08/23 11:16) Ns Iv 1000 Ml (Ns Iv 1000 Ml) (03/08/23 11:30) Magnesium (03/08/23 11:16) Ekg Tracing (03/08/23 11:16) Monitor-Rhythm Ecg Trace Only (03/08/23 11:16) Troponin I Olga (03/08/23 11:16) Promethazine Injection (Promethazine I (03/08/23 11:30) Fentanyl Injection (Fentanyl Injection (03/08/23 11:30) Fibrin Degradation Products (03/08/23 11:22) Covid 19 Inhouse Test (03/08/23 11:22) Influenza A And B By Pcr (03/08/23 11:22) Rapid Strep A Screen (03/08/23 11:26) Orthostatic Vital Signs (Adult (03/08/23 11:28) Lipase (03/08/23 11:32) Ua Culture If Indicated (03/08/23 12:51) Ns Iv 1000 Ml (Ns Iv 1000 Ml) (03/08/23 13:00) Promethazine Injection (Promethazine I (03/08/23 13:15) Prochlorperazine Injection (Prochlorpera (03/08/23 14:00) Ct Abdomen/Pelvis Wo (03/08/23 14:00) Medications Given in ED Current Medications Medications Dose Ordered Sig/Tk Route Start Time Stop Time Status Last Admin Dose Admin Fentanyl Citrate 50 mcg ONCE ONCE IVP 03/08/23 11:30 03/08/23 11:31 DC 03/08/23 11:42 50 MCG Prochlorperazine Edisylate 10 mg ONCE ONCE IV 03/08/23 14:00 03/08/23 14:02 DC 03/08/23 14:06 10 MG Promethazine HCl 12.5 mg ONCE ONCE IVP 03/08/23 11:30 03/08/23 11:31 DC 03/08/23 11:42 12.5 MG Promethazine HCl 12.5 mg ONCE ONCE IVP 03/08/23 13:15 03/08/23 13:16 DC 03/08/23 13:44 12.5 MG Vital Signs/I&O 03/08/23 10:55 Temp 36.4 Pulse 100 Resp 20 B/P (MAP) 144/97 (113) Pulse Ox 95 O2 Delivery Room Air Capillary Refill : Less Than 3 Seconds Blood Pressure Mean: 113 Progress Note : Progress Note Patient seen and evaluated, resting in bed, mild distress. Based on exam and symptoms, work-up initiated including CBC, CMP, troponin, magnesium, coags, D- dimer EKG, chest x-ray, lipase, lactic acid, urinalysis, COVID, flu swab, strep swab, orthostatic vitals. IV fluids, fentanyl, and Phenergan ordered. ECG Initial ECG Impression Date: Mar 08, 2023 Initial ECG Impression Time: 11:30 Initial ECG Rate: 95 Initial ECG Rhythm: Normal Sinus Initial ECG Intervals: Normal Initial ECG Impression: Nonspecific Changes Initial ECG Comparisson: Unchanged Departure Impression Primary Impression: Left ureteral stone Additional Impression: COVID-19 Disposition: 01 HOME, SELF-CARE Condition: Stable Departure-Patient Inst. Decision time for Depature: 16:16 Patient Instructions: COVID-19 (DC) Add. Discharge Instructions: Follow-up with urology, below are the contact information for urologist in [place]. Take Flomax once a day. Take Baylis as needed for pain. It can cause constipation, so only take when needed. Use the Phenergan suppositories as needed for nausea or vomiting. You need to remain in isolation until your symptoms start to improve. Once your symptoms are improving, you may come out of isolation, but you need to wear a mask while around others for an additional 5 days. Return for any new, concerning, or worsening symptoms. [facility] [address], [place] [address] [facility] [address] [facility] [address], [place] [address] All discharge instructions reviewed with patient and/or family. Voiced understanding. Scripts Promethazine HCl (Promethazine Suppository) 25 Mg Supp.rect 25 MG RC Q6H, #10 SUPP.RECT 0 Refills Prov: [employer] 03/08/23 Hydrocodone/Acetaminophen (Hydrocodone-Acetamin 5-325 mg) 5 Mg-325 Mg Tablet 1 TAB PO Q4H PRN for PAIN-MODERATE (5-7), #12 TAB 0 Refills Prov: [employer] 03/08/23 Tamsulosin HCl (Flomax) 0.4 Mg Cap 0.4 MG PO DAILY for 14 Days, #14 CAP 0 Refills Prov: [employer] 03/08/23 Work/School Note: Work Release Form Date Seen in the Emergency Department: Mar 08, 2023 Return to Work: Mar 11, 2023 Restrictions: No Restrictions Other Restrictions Listed Below: Return to work if your symptoms are improving, you must wear a mask NAN[employer] Mar 08, 2023 11:26
[2023-03-08] MEDS ORDERED: fentaNYL INJECTION 100 MCG/2 ML VIAL IVP ONE (11:30)
[2023-03-08] MEDS ORDERED: PROMETHAZINE INJ 25 MG/ML VIAL IVP ONE ×2 (11:30→13:15)
[2023-03-08] MEDS ORDERED: NS IV 1000 ML 1,000 ML IV SCH ×2 (11:30→13:00)
[2023-03-08 11:54] LABS: BASOPHILS % (AUTO) 1 % (0-10); EOSINOPHILS # (AUTO) 0.1 10^3/uL (0.0-0.3); EOSINOPHILS % (AUTO) 2 % (0-10); HEMATOCRIT 47 % (35-52); HEMOGLOBIN 15.4 g/dL (11.5-16.0); LYMPHOCYTES # (AUTO) 1.7 10^3/uL (1.0-4.0); LYMPHOCYTES % (AUTO) 29 % (12-44); MEAN CORPUSCULAR HEMOGLOBIN 30 pg (25-34); MEAN CORPUSCULAR HGB CONC 33 g/dL (32-36); MEAN CORPUSCULAR VOLUME 90 fL (80-99); MEAN PLATELET VOLUME 12.8 fL (9.0-12.2); MONOCYTES # (AUTO) 0.5 10^3/uL (0.0-1.0); MONOCYTES % (AUTO) 9 % (0-12); NEUTROPHILS # (AUTO) 3.3 10^3/uL (1.8-7.8); NEUTROPHILS % (AUTO) 59 % (42-75); PLATELET COUNT 155 10^3/uL (130-400); WHITE BLOOD COUNT 5.6 10^3/uL (4.3-11.0)
--- NOTE | 2023-03-08 12:09 | Diagnostic Imaging Report ---
INDICATION: Lightheaded, shortness of air, chest pain, nausea, vomiting, pain onset four to five days ago. TECHNIQUE: Single-view chest at 11:45 a.m. CORRELATION STUDY: 01/15/2022. FINDINGS: The heart size, mediastinal configuration and pulmonary vascularity are within normal limits. Atelectasis and/or scarring about both lung bases. No definitive consolidating infiltrate. IMPRESSION: 1. Areas of discoid atelectasis and/or scarring at both lung bases. No consolidating infiltrate. Dictated by: Dictated on workstation # [id number]
[2023-03-08 12:39] LABS: ALBUMIN 3.7 GM/DL (3.2-4.5); CHLORIDE 110 MMOL/L (98-107); POTASSIUM 4.9 MMOL/L (3.6-5.0); SODIUM 140 MMOL/L (135-145)
[2023-03-08 12:40] LABS: CALCIUM 8.7 MG/DL (8.5-10.1)
[2023-03-08 12:41] LABS: GLUCOSE 93 MG/DL (70-105); TOTAL PROTEIN 7.5 GM/DL (6.4-8.2)
[2023-03-08 12:42] LABS: CARBON DIOXIDE 16 MMOL/L (21-32)
[2023-03-08 12:43] LABS: BILIRUBIN,TOTAL 0.6 MG/DL (0.1-1.0)
[2023-03-08 12:45] LABS: ALKALINE PHOSPHATASE 66 U/L (40-136); CREATININE SERUM 0.97 MG/DL (0.60-1.30); GFR ESTIMATED 70
[2023-03-08 12:46] LABS: BUN/CREATININE RATIO 14
[2023-03-08 12:48] LABS: ALANINE AMINOTRANSFERASE 68 U/L (0-55); MAGNESIUM 1.7 MG/DL (1.6-2.4)
[2023-03-08 12:49] LABS: LIPASE 19 U/L (8-78)
[2023-03-08 12:50] LABS: PROTHROMBIN TIME PATIENT 13.8 SEC (12.2-14.7)
[2023-03-08 12:51] LABS: FIBRIN DEGRADATION PRODUCTS 0.31 UG/ML (0.00-0.49)
[2023-03-08 13:30] LABS: BILIRUBIN,URINE NEGATIVE (NEGATIVE); CLARITY,URINE CLEAR; COLOR,URINE YELLOW; GLUCOSE, URINE (UA) NEGATIVE (NEGATIVE); KETONES,URINE NEGATIVE (NEGATIVE); LEUKOCYTE ESTERASE ,URINE NEGATIVE (NEGATIVE); NITRITE,URINE NEGATIVE (NEGATIVE); PROTEIN,URINE NEGATIVE (NEGATIVE)
[2023-03-08 13:31] LABS: BACTERIA,URINE NEGATIVE /HPF
[2023-03-08 13:34] LABS: RBC,URINE 25-50 /HPF
[2023-03-08] MEDS ORDERED: PROCHLORPERAZINE INJ 10 MG/2ML VIAL IV ONE (14:00)
--- NOTE | 2023-03-08 14:41 | Diagnostic Imaging Report ---
PROCEDURE: CT abdomen and pelvis without contrast. TECHNIQUE: Multiple contiguous axial images were obtained through the abdomen and pelvis without the use of intravenous contrast. Auto Exposure Controls were utilized during the CT exam to meet ALARA standards for radiation dose reduction. INDICATION: 52-year-old female, lightheaded, nausea, and vomiting. Generalized body aches and pain x 4-5 days. Hematuria, flank pain. CORRELATION STUDY: 02/01/2022. FINDINGS: LOWER THORAX: Likely minimal basilar atelectasis and/or scarring. Heart size is borderline enlarged. Small esophageal hernia. LIVER: Unremarkable on unenhanced imaging. GALLBLADDER: Cholecystectomy. SPLEEN: Unremarkable. PANCREAS: Unremarkable. ADRENAL GLANDS: Unremarkable. KIDNEYS: 11 mm exophytic low-density mass superior pole right kidney favors a probable cyst. Nonobstructing bilateral renal stones. Prominent left extrarenal pelvis has changed from prior. Left ureter is also mildly prominent. There are multiple surgical clips adjacent to the distal left ureter. Just proximal to these clips is a suspect 3-4 mm stone in the ureter. ABDOMINAL AORTA: Unremarkable, nonaneurysmal. GASTROINTESTINAL TRACT: No obstruction or inflammatory change in the gastrointestinal tract. URINARY BLADDER: Unremarkable. REPRODUCTIVE: Hysterectomy. OSSEOUS STRUCTURES: No acute abnormality. IMPRESSION: 1. Findings suggest an approximately 3 to 4 mm stone in the mid to distal ureter resulting in mild left-sided obstruction. 2. Additional nonobstructing bilateral renal stones are also present. 3. Approximately 1 cm exophytic right superior pole renal mass. Somewhat indeterminate but relatively stable and currently favors probable cyst. Dictated by: Dictated on workstation # [id number]
[2023-03-08] MEDS ORDERED: ACHD5005 PO (16:20)
[2023-03-08] MEDS ORDERED: TMSL.4C PO (16:20)
[2023-03-08] MEDS ORDERED: PROM25SU44 RC (16:20)
[2023-03-08 16:25] VITALS: BP 141/87
== END 2023-03-08 16:25 | disposition home or self-care (01) ==
LOC: EDUNIT# 10:46 → ER 10:49
DX: U07.1 COVID-19 (principal); N20.2 Calculus of kidney with calculus of ureter; R05.9 Cough, unspecified; R42 Dizziness and giddiness; R51.9 Headache, unspecified; R07.9 Chest pain, unspecified; R06.02 Shortness of breath; G47.30 Sleep apnea, unspecified; Z99.89 Dependence on other enabling machines and devices; Z90.49 Acquired absence of other specified parts of digestive tract; Z88.5 Allergy status to narcotic agent; Z88.6 Allergy status to analgesic agent
CPT/HCPCS: 36415; 71045; 74176; 80053; 81000; 83605; 83690; 83735; 84484; 85025; 85379; 85610; 85730; 87430; 87636; 93005

== ENCOUNTER → 2023-03-31 | Outpatient (CLI) | payer MEDICARE ==
--- NOTE | 2023-03-31 17:01 | Diagnostic Imaging Report ---
PROCEDURE: US Hepatic (Liver). INDICATION: ABD PAIN, ELEVATED LFTS, VOMITING TECHNIQUE: Multiple grayscale sonographic images were obtained of the right upper quadrant of the abdomen. CORRELATION STUDY: 01/19/2023 FINDINGS: LIVER: There is uniform echotexture within the visualized portions of the liver. The main portal vein is patent and with normal direction of flow. Length 14.4 cm. GALLBLADDER: Cholecystectomy. COMMON BILE DUCT: Nondilated at 0.3 cm. PANCREAS: Visualized portions appearing unremarkable. AORTA/IVC: Visualized segments, unremarkable. RIGHT KIDNEY: 11.1 x 4.2 x 5.2 cm. Small, 1.1 cm cyst. No hydronephrosis. OTHER: No right upper quadrant ascites. IMPRESSION: 1. Cholecystectomy. 2. Liver slightly small but without focal lesion. Dictated by: Dictated on workstation # [id number]
== END ==
LOC: RAD 14:43
PROVIDERS: ATTEND Nurse Practitioner Family
DX: K76.89 Other specified diseases of liver (principal); Z90.49 Acquired absence of other specified parts of digestive tract
CPT/HCPCS: 76705

== ENCOUNTER → 2023-05-07 | Outpatient (CLI) | payer MEDICARE ==
[~2023-05-07] VITALS: Ht 154.9 cm; Wt 71.4 kg
[~2023-05-07] MED LIST changes: +IRBE75TA9; +TIZA-186
== END | disposition home or self-care (01) ==
LOC: PREOP 05:35
PROVIDERS: ATTEND Specialist
DX: Z01.818 Encounter for other preprocedural examination (principal)